=== PATIENT | female | born 1975 | race Caucasian/White ===

== ENCOUNTER → 2017-07-23 | Outpatient (CLI) | payer MEDICAID ==
[~2017-07-23] MED LIST: ACET-2469 PO; ACHD5005 PO; ALBU8.5H2 IH; ALPR2TAB2 PO; AMIT25TA9 PO; AMLO5TAB2 PO; CYCL10TA45 PO; DICY10CA26 PO; DICY20TA10 PO; DICY20TA57 PO; DOXY100C2 PO; ESZO3TAB3 PO; ESZO3TAB30 PO; FAMO20TA5 PO; FLUT1DIS28 IH; GABA-488 PO; HYDR-34 PO; HYDR-3583 PO; HYOS0.1217 PO; MELO-195 PO; NAPR-243 PO; NITR-65 PO; NITR100C PO; NITR100C10 PO; ONDA-42 SL; ONDA4TAB8 PO; ONDA8TAB9 PO; ONDAN4ODT PO; ONDN4T PO; OXYC-12 PO; OXYC-309 PO; PHEN16.297 PO; POTA10TA36 PO; POTA20TA7 PO; PRD20T PO; PRM25T PO; PROM25TA14 PO; PROP10TA8 PO; PROP60CA; RNT150T PO; ROPI1TAB PO; SRTR100T PO; SULF-222 PO; SULF1TAB38 PO; SUMA25TA3; TOPI100T2 PO; TOPI50TA37; TPR25T PO; TRAM50TA2 PO; TRM50T PO; XANAX; [UNRECOGNIZED DRUG - CODE] EXT; [UNRECOGNIZED DRUG - REMARK]
--- NOTE | 2017-07-23 09:00 | Diagnostic Imaging Report ---
DATE: 07/23/2017 8:43 AM INDICATION: Abnormal liver enzymes. COMPARISON: CT from 02/19/2014. TECHNIQUE: Routine liver/gallbladder ultrasound. FINDINGS: The liver is normal in size and shape. The liver echogenicity is within normal limits. There are no focal lesions. No intrahepatic biliary dilatation is present. The common bile duct is not seen. The main portal vein is hepatopetal. The gallbladder is absent. No fluid collections are seen in the gallbladder fossa. The sonographic Brown's sign is negative. The visualized portions of the head of the pancreas are within normal limits. The body and tail of the pancreas are not well visualized due to overlying bowel gas. The visualized portions of the IVC and aorta are normal. The right kidney measures approximately 10.4 cm in length and has a normal appearance. No free fluid is seen. IMPRESSION: 1. No acute hepatic abnormality is seen. The gallbladder is absent. Dictated by: Dictated on workstation # [id number]
== END ==
LOC: RAD 07:48
PROVIDERS: ATTEND Nurse Practitioner Family
DX: R74.8 Abnormal levels of other serum enzymes (principal); Z90.49 Acquired absence of other specified parts of digestive tract
CPT/HCPCS: 76705

== ENCOUNTER 2018-01-12 08:44 | Emergency (ER) | payer MEDICAID ==
[~2018-01-12] VITALS: Ht 160 cm; Wt 86.2 kg
--- OUTSIDE RECORDS SUMMARY | 2018-01-12 08:51 | XMS REPORT ---
Author Author DIONY XIONG Organization [facility] Address [address] [place] [address] Care Team Providers Care Vb Net Developer Name Role Phone DIONY XIONG Unavailable PROBLEMS Type Condition ICD9-CM Code [id number] Code Onset Dates Condition Status SNOMED Code Problem Essential hypertension I10 Active 86795205 Problem Other chronic pain G89.29 Active 47880228 Problem 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 Active 45042244 Problem Other chronic pain G89.29 Active 91531308 Problem Intractable chronic migraine without aura and with status migrainosus G43.711 Active 926854641 Problem Primary insomnia F51.01 Active 6523127 Problem Seizure disorder G40.909 Active 147663204 Problem Moderate persistent asthma with exacerbation J45.41 Active 677202395 Problem Moderate persistent asthma without complication J45.40 Active 548161072 Problem Elevated liver enzymes R74.8 Active 065261136 Problem Hyperlipidemia LDL goal <100 E78.5 Active 98471244 Problem Hypokalemia E87.6 Active 05097041 Problem Tremor, hereditary, 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 Active 557683786 Problem Abnormal glucose R73.09 Active 180453944 Problem Irritable bowel K58.9 Active 52272714 Problem Major depressive disorder, recurrent episode, moderate F33.1 Active 587332907 Problem Chronic migraine without aura with status migrainosus, not intractable G43.701 Active 898381534 ALLERGIES No Information ENCOUNTERS Encounter Location Date Diagnosis [facility] [id number] [address] Dec, [facility] [address] [address] Nov, Other chronic pain G89.29 and Pain in right shoulder M25.511 [facility] [id number] [place] [address] 66998- 7503 October, [facility] [address] [address] October, Right shoulder pain, unspecified chronicity M25.511 [facility] [id number] [place] [address] 25266- 7742 Aug, Elevated liver enzymes R74.8 and Hyperlipidemia LDL goal < 100 E78.5 [facility] [id number] [place] [address] 99283- 8403 Aug, [facility] [id number] [place] [address] 44834- 7394 Jul, [facility] [id number] [place] [address] 24951- 8901 Jul, Intractable chronic migraine without aura and with status migrainosus G43.711 ; Fever, unspecified fever cause R50.9 and Elevated liver enzymes R74.8 [facility] [id number] [place] [address] 41724- 9508 Jun, Difficulty urinating R39.198 and Moderate persistent asthma with exacerbation J45.41 [facility] [id number] [place] [address] 09293- 3643 Jun, [facility] [id number] [place] [address] 35266- 1847 Jun, Moderate persistent asthma with exacerbation J45.41 [facility] [id number] [place] [address] 41746- 3081 May, Elevated liver enzymes R74.8 and Hyperlipidemia LDL goal < 100 E78.5 [facility] [id number] [place] [address] 51991- 4913 May, Elevated lipids E78.5 [facility] [id number] [place] [address] 03093- 4736 Apr, Elevated liver enzymes R74.8 [facility] [id number] [place] [address] 08173- 1434 Apr, Elevated liver enzymes R74.8 [place] [address] [address]206- 5513 Apr, Superior glenoid labrum lesion of right shoulder, subsequent encounter S43.431D [facility] [address] 49291- 7138 Apr, Hypokalemia E87.6 ; Major depressive disorder, recurrent episode, moderate F33.1 ; Other abnormalities of breathing R06.89 and Dyspnea, unspecified R06.00 [facility] [address] [address]14 Mar, Moderate persistent asthma without complication J45.40 [place] [address] 57376- 3028 Mar, Impingement syndrome of right shoulder M75.41 [place] [address] 99419- 9381 Jan, [place] [address] 13675- 0070 Jan, Chronic migraine without aura with status migrainosus, not intractable G43.701 ; Essential hypertension I10 ; Irritable bowel K58.9 ; Primary insomnia F51.01 and Hypokalemia E87.6 [place] [id number] [place] [address] 83568- 6794 Dec, [place] [address] 08117- 7564 Dec, Pain in right shoulder M25.511 [place] [address] 24767- 6648 Dec, [place] [address] 92434- 6521 Dec, Essential hypertension I10 [place] [address] 40443- 4055 30 Nov, 2016 Essential hypertension I10 [facility] [id number] [place] [address] 01457- 9077 14 Nov, 2016 Pain in right shoulder M25.511 [facility] [id number] [place] [address] 30569- 3993 13 Nov, 2016 Pain in right shoulder M25.511 [facility] [id number] [place] [address] 58023- 1373 October, [facility] [address] [place] [address] 19007- 2541 October, Pain in right shoulder M25.511 [facility] [address] [place] [address] 22443- 1688 Sep, Arm pain, right M79.601 [place] [address] [place] [address] 79138- 8164 Sep, [facility] [address] [place] [address] 73124- 3557 Sep, Abnormal glucose R73.09 and Elevated lipids E78.5 [place] [address] [place] [address] 71388- 5783 Sep, Abnormal glucose R73.09 and Elevated lipids E78.5 [place] [address] [place] [address] 51652- 4571 Aug, [facility] [address] [place] [address] 78095- 3535 Aug, [facility] [id number] [place] [address] 96427- 8629 Aug, [facility] [address] [place] [address] 20562- 2296 Aug, 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 ; Hypokalemia E87.6 ; Irritable bowel K58.9 ; Essential hypertension I10 ; Pain in right shoulder M25.511 ; Seizure disorder G40.909 and Screening for lipid disorders Z13.220 [place] [address] [place] [address] 65247- 0071 28 Jul, 2016 Other chronic pain G89.29 and Pain in right shoulder M25.511 [place] [address] [place] [address] 18535- 4705 14 Jul, 2016 Biceps muscle strain, right, subsequent encounter S46.111D [facility] [place] [address] 10077 -0611 08 Jul, 2016 Arm pain, right M79.601 [place] [address] 08021- 3739 30 Jun, 2016 [place] [address] 68987- 9206 13 Jun, 2016 Acute non-recurrent frontal sinusitis J01.10 [place] [address] [place] [address] 04103- 1530 14 May, 2016 Generalized abdominal pain R10.84 ; Urinary tract infection without hematuria, site unspecified N39.0 ; Hypokalemia E87.6 ; Essential hypertension I10 ; Screening for lipid disorders Z13.220 ; Seizure R56.9 and Low back pain M54.5 [place] [address] [place] [address] 50373- 6199 Apr, [facility] [place] [address] [place] [address] 27432 -1408 Feb, [place] [address] [place] [address] 98721- 9439 Jan, [place] [address] 51101- 6975 Dec, 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 ; Hypokalemia E87.6 ; Irritable bowel K58.9 and Nausea R11.0 [facility] [place] [address] 89901 -3026 Dec, Generalized abdominal pain R10.84 [facility] [address] [place] [address] 15015- 8099 Nov, [facility] [address] [place] [address] 85780 -2980 Aug, Acute bronchitis J20.9 [facility] [address] [place] [address] 89588- 1073 Aug, [place] [address] [place] [address] 15540- 5189 08 Aug, 2015 Low back pain M54.5 ; Hypokalemia E87.6 ; Chronic migraine without aura with status migrainosus, not intractable G43.701 ; Tremor, hereditary, 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 ; Irritable bowel K58.9 ; Essential hypertension I10 and Seizure R56.9 [place] [address] [place] [address] 97528- 0553 07 Aug, 2015 [facility] [address] [place] [address] 17124- 1638 Jul, [place] [address] [place] [address] 22818- 2552 03 Jul, 2015 Low back pain M54.5 ; Hypokalemia E87.6 ; Chronic migraine without aura with status migrainosus, not intractable G43.701 ; Tremor, hereditary, 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 ; Irritable bowel K58.9 ; Essential hypertension I10 and Seizure R56.9 [facility] [address] [place] [address] 00392- 8661 Jun, Hypokalemia E87.6 [place] [address] [place] [address] 64082- 3681 15 Jun, 2015 ADD (attention deficit disorder) without hyperactivity F90.0 ; Generalized anxiety disorder F41.1 and Major depressive disorder, recurrent episode, moderate F33.1 [place] [address] [place] [address]- 8671 Jun, Low back pain M54.5 ; Hypokalemia E87.6 ; Chronic migraine without aura with status migrainosus, not intractable G43.701 ; Tremor, hereditary, 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 ; Irritable bowel K58.9 ; Essential hypertension I10 and Seizure R56.9 [place] [address] [place] [address] 16374- 2599 Jun, [place] [address] [place] [address] 05996- 2760 May, [place] [address] 74721- 7997 30 May, 2015 Low back pain M54.5 ; Hypokalemia E87.6 ; Chronic migraine without aura with status migrainosus, not intractable G43.701 ; Tremor, hereditary, 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 ; Irritable bowel K58.9 ; Essential hypertension I10 ; Seizure R56.9 and Tinea capitis B35.0 [place] [address] [place] [address] 44211- 1618 May, Low back pain M54.5 ; Hypokalemia E87.6 ; Chronic migraine without aura with status migrainosus, not intractable G43.701 ; Tremor, hereditary, 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 ; Irritable bowel K58.9 ; Essential hypertension I10 ; Seizure R56.9 ; Otitis media, left H66.92 and Dysuria 788.1 [place] [address] [place] [address] 72100- 1231 May, Tooth pain K08.8 [place] [address] 09209- 9146 May, [place] [address] [place] [address] 02233- 9771 May, Low back pain M54.5 ; Hypokalemia E87.6 ; Chronic migraine without aura with status migrainosus, not intractable G43.701 ; Tremor, hereditary, 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 ; Irritable bowel K58.9 and Essential hypertension I10 [place] [address] 59582- 0463 Apr, Low back pain M54.5 ; Hypokalemia E87.6 ; Chronic migraine without aura with status migrainosus, not intractable G43.701 ; Tremor, hereditary, 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 and Irritable bowel K58.9 [facility] [address] 65499- 4812 05 Apr, 2015 Low back pain M54.5 [place] [address] 44492- 8344 Mar, [place] [address] 49619- 5603 Mar, Irritable bowel syndrome with diarrhea K58.0 [place] [address] 62907- 6392 Mar, [facility] [address] 29699- 3201 Feb, [place] [address] 20575- 0958 08 Feb, 2015 [place] [address] [place] [address] 45587- 2543 Feb, Irritable bowel syndrome 564.1 ; Lumbago 724.2 and Cervical pain (neck) 723.1 [facility] [address] [place] [address] 09647- 2284 Dec, Major depressive disorder, recurrent episode, moderate 296.32 and Generalized anxiety disorder 300.02 [facility] [address] [place] [address] 60079- 3354 Nov, [facility] [address] [place] [address] 82684- 2236 Nov, Major depressive disorder, recurrent episode, moderate 296.32 [facility] [address] [address]- 4152 Nov, Constipation 564.00 ; Nausea & vomiting 787.01 and Abdominal pain 789.00 [facility] [address] 2046 Nov, [facility] [address] [place] [address] 45348- 3550 October, [facility] [address] [place] [address] 59154- 9009 October, [facility] [address] [place] [address] 947334- 4607 October, [facility] [address] [place] [address] 38665- 7996 October, [facility] [address] [place] [address] 59053- 3564 Sep, [facility] [address] [place] [address] 14668- 9130 Sep, Dysuria 788.1 [facility] [address] [place] [address] 42294- 6857 Sep, [facility] [address] [address]- 2144 Sep, [facility] [address] [address]- 8324 Sep, [facility] [address] [place] [address] 54999- 9104 Aug, [facility] [address] [place] [address] 541382- 4366 Aug, [facility] [address] [address] 2546 Aug, [facility] [address] [place] [address] 64461- 4157 Aug, [facility] [place] [facility] [address] [id number] [place] [address]- 3327 Aug, [facility] [place] [facility] [address] [id number] [place] [address]- 9430 Aug, [facility] [place] [facility] [address] [id number] [place] [address]- 4633 Aug, [facility] [place] [facility] [address] [id number] [place] [address]- 5682 Aug, [facility] [place] [facility] [address] [id number] [place] [address]- 1846 Aug, [facility] [place] [facility] [address] [id number] [place] [address]- 1436 Aug, [facility] [place] [facility] [address] [id number] [place] [address]- 7147 Jun, [facility] [place] [facility] [address] [id number] [place] [address]- 6700 Jun, [facility] [place] [facility] [address] [id number] [place] [address]- 5360 Jun, [facility] [place] [facility] [address] [id number] [place] [address]- 1564 Jun, [facility] [place] [facility] [address] [id number] [place] [address]- 5574 May, [facility] [place] [facility] [address] [id number] [address]- 6893 May, [facility] [place] [facility] [address] [id number] [place] [address]- 5685 May, [facility] [place] [facility] [address] [id number] [place] [address]- 3565 May, [facility] [place] [facility] [address] [id number] [place] [address]- 8822 May, [facility] [place] [facility] [address] [id number] [place] [address]- 1191 May, [facility] [place] [facility] [address] [id number] [place] 4004 May, [facility] [place] [facility] [address] [id number] [place] 3471 May, [facility] [place] [facility] [address] [id number] [place] 9413 Mar, [facility] [place] [facility] [address] [id number] [place] [address]- 5483 Mar, [facility] [place] [facility] [address] [id number] [place] [address]- 7614 Mar, [facility] [place] [facility] [address] [id number] [place] [address]- 8509 Mar, [facility] [place] [facility] [address] [id number] [place] [address]- 0343 Mar, [facility] [place] [facility] [address] [id number] [place] [address]- 0811 Mar, [facility] [place] [facility] [address] [id number] [place] [address]- 4399 Mar, [facility] [place] [facility] [address] [facility] [id number] [place] [address]- 7321 Mar, [facility] [place] [facility] [address] [id number] [place] [address]- 6082 Mar, [facility] [place] [facility] [address] [id number] [place] [address]- 8463 Mar, [facility] [place] [facility] [address] [id number] [place] [address]- 6982 Mar, [facility] [place] [facility] [address] [facility] [id number] [place] 8796 Mar, [facility] [place] [facility] [address] [id number] [place] 6118 Feb, [facility] [place] [facility] [address] [id number] [place] [address]- 1520 Feb, [facility] [place] [facility] [address] [id number] [place] [address]- 2157 Feb, [facility] [place] [facility] [address] [id number] [place] [address]- 9268 Feb, [facility] [place] [facility] [address] [id number] [place] [address]- 5308 Feb, [facility] [place] [facility] [address] [id number] [place] [address]- 0677 Feb, [facility] [place] [facility] [address] [id number] [place] [address]- 5756 Jan, [facility] [place] [facility] [address] [id number] [place] [address]- 2589 Jan, [facility] [place] [facility] [address] [id number] [place] [address]- 1272 Jan, [facility] [place] [facility] [address] [id number] [place] [address]- 1293 Jan, [facility] [place] [facility] [address] [id number] [place] [address]- 9926 Jan, [facility] [place] [facility] [address] [id number] [place] [address]- 0321 Jan, [facility] [place] [facility] [address] [id number] [place] [address]- 3187 Jan, [facility] [place] [facility] [address] [id number] [place] [address]- 4150 Jan, [facility] [place] [facility] [address] [id number] [place] [address]- 9218 Dec, [facility] [place] [facility] [address] [id number] [place] [address]- 7260 Dec, [facility] [place] [facility] [address] [id number] [place] [address]- 0430 Dec, [facility] [place] [facility] [address] [id number] [place] [address]- 2451 Dec, [facility] [place] [facility] [address] [id number] [place] [address]- 7138 Dec, [facility] [place] [facility] [address] [id number] [place] [address]- 2489 Dec, [facility] [place] [facility] [address] [id number] [place] [address]- 0419 Dec, [facility] [place] [facility] [address] [id number] [place] [address]- 2315 Dec, [facility] [place] [facility] [address] [id number] [place] [address]- 2054 October, [facility] [place] [facility] [address] [id number] [place] [address]- 4577 October, [facility] [place] [facility] [address] [id number] [place] [address]- 5317 Sep, [facility] [place] [facility] [address] [id number] [place] [address]- 7923 Sep, [facility] [place] [facility] [address] [id number] [place] [address]- 5503 Sep, [facility] [place] [facility] [address] [id number] [place] [address]- 0256 Sep, [facility] [place] [facility] [address] [id number] [place] [address]- 4855 Sep, [facility] [place] [facility] [address] [id number] [place] [address]- 7989 Sep, [facility] [place] [facility] [address] [id number] [place] [address]- 2466 Sep, [facility] [place] [facility] [address] [id number] [place] [address]- 8310 Sep, [facility] [place] [facility] [address] [id number] [place] [address]- 9746 Sep, [facility] [address] [id number] [place] [address]- 3088 Sep, [facility] [place] [facility] [address] [id number] [place] [address] Sep, [facility] [address] [id number] [place] [address] Sep, [facility] [place] [facility] [address] [id number] [place] [address] Aug, [facility] [address] [id number] [place] [address] Aug, [facility] [place] [facility] [address] [id number] [place] [address] Aug, [facility] [address] [id number] [place] [address] Jun, [facility] [address] [id number] [place] [address] Jun, [facility] [place] [facility] [address] [id number] [place] [address] Jun, [facility] [address] [id number] [place] [address] Jun, [facility] [place] [facility] [address] [id number] [place] [address] Jun, [facility] [place] [facility] [address] [id number] [place] [address] Jun, [facility] [place] [facility] [address] [id number] [place] [address] Jun, [facility] [place] [facility] [address] [id number] [place] [address] Jun, [facility] [place] [facility] [address] [id number] [place] [address] Jun, [facility] [address] [id number] [place] [address] Jun, [facility] [place] [facility] [address] [id number] [place] [address] May, [facility] [place] [facility] [address] [id number] [place] [address] May, [facility] [place] [facility] [address] [id number] [place] [address] May, [facility] [place] [facility] [address] [id number] [place] [address] May, [facility] [place] [facility] [address] [id number] [place] [address] Apr, [facility] [place] [facility] [address] [id number] [place] [address] Apr, [facility] [place] [facility] [address] [id number] [place] [address] Apr, [facility] [place] [facility] [address] [id number] [place] [address] Apr, [facility] [place] [facility] [address] [id number] [place] [address] Apr, [facility] [place] [facility] [address] [id number] [place] [address] Apr, [facility] [place] [facility] [address] [id number] [place] [address] Apr, [facility] [place] [facility] [address] [id number] [place] [address] Apr, [facility] [place] [facility] [address] [id number] [place] [address] Mar, [facility] [place] [facility] [address] [id number] [place] [address] Mar, [facility] [place] [facility] [address] [id number] [place] [address] Mar, [facility] [address] [id number] [place] [address] Mar, [facility] [place] [facility] [address] [id number] [place] [address] Mar, [facility] [place] [facility] [address] [id number] [place] [address] Feb, [facility] [place] [facility] [address] [id number] [place] [address] Feb, [facility] [place] [facility] [address] [id number] [place] [address] Feb, [facility] [place] [facility] [address] [id number] [place] [address] Feb, [facility] [address] [address] [id number] [address] Feb, [facility] [place] [facility] [address] [id number] [place] [address] Jan, [facility] [place] [facility] [address] [id number] [place] [address] Jan, [facility] [place] [facility] [address] [id number] [place] [address] Nov, [facility] [place] [facility] [address] [id number] [place] [address] Nov, [facility] [place] [facility] [address] [id number] [place] [address] Nov, [facility] [place] [facility] [address] [id number] [place] [address] Nov, [facility] [place] [facility] [address] [id number] [place] [address] October, [facility] [place] [facility] [address] [id number] [place] [address] Sep, [facility] [place] [facility] [address] [id number] [place] [address] Aug, [facility] [place] [facility] [address] [id number] [place] [address] Aug, [facility] [place] [facility] [address] [id number] [place] [address] Aug, [facility] [place] [facility] [address] [id number] [place] [address] Aug, [facility] [place] [facility] [address] [id number] [place] [address] Jul, [facility] [place] [facility] [address] [id number] [place] [address] Jun, [facility] [place] [facility] [address] [id number] [place] [address] 2546 Jun, [facility] [place] [facility] [address] [id number] [place] [address] May, [facility] [place] [facility] [address] [id number] [place] [address] May, [facility] [place] [facility] [address] [facility] [id number] [place] [id number] Mar, [facility] [place] [facility] [address] [facility] [id number] [place] [address] Mar, [facility] [place] [facility] [address] [id number] [place] [address] Mar, [facility] [place] [facility] [address] [id number] [place] [address] Mar, [facility] [place] [facility] [address] [id number] [place] [address] Mar, [facility] [place] [facility] [address] [id number] [place] [address] Mar, [facility] [place] [facility] [address] [facility] [id number] [place] [address]- [address] Mar, [facility] [place] [facility] [address] [id number] [place] [address]- [address] 23 Mar, 2011 [facility] [place] [facility] [address] [id number] [place] [address] 8631 22 Mar, 2011 [facility] [place] [facility] [address] [id number] [place] [address] 20 Mar, 2012 [facility] [place] [facility] [address] [id number] [place] [address] 20 Mar, 2012 [facility] [place] [facility] [address] [id number] [place] [address] 9665 17 Mar, 2012 [facility] [place] [facility] [address] [id number] [place] [address] 4[address] 17 Mar, 2012 [facility] [place] [facility] [address] [id number] [place] [address]15 15 Mar, 2012 [facility] [place] [facility] [address] [id number] [place] [address] 15 Mar, 2012 [facility] [place] [facility] [address] [id number] [place] [address]37 15 Mar, 2012 [facility] [place] [facility] [address] [id number] [place] [address] 15 Mar, 2012 [facility] [place] [facility] [address] [id number] [place] [address] Mar, [facility] [place] [facility] [address] [id number] [place] [address] 11 Mar, 2012 [facility] [place] [facility] [address] [id number] [place] [address] Mar, [facility] [place] [facility] [address] [id number] [place] [address]- 1492 08 Mar, 2012 [facility] [place] [facility] [address] [id number] [place] [address] Mar, [facility] [place] [facility] [address] [id number] [place] [address] 01 Mar, 2012 [facility] [place] [facility] [address] [id number] [place] [address]256 19 Sep, 2011 [facility] [place] [facility] [address] [id number] [place] [address] 2546 18 Sep, 2011 [facility] [place] [facility] [address] [id number] [place] [address] 2546 17 Sep, 2011 [facility] [place] [facility] [address] [id number] [place] [address] 2546 14 Feb, 2011 [facility] [place] [facility] [address] [id number] [place] [address] 14 Feb, 2011 [facility] [place] [facility] [address] [id number] [place] [address]- [address]686 12 Feb, 2011 [facility] [place] [facility] [address] [id number] [place] [address]- 2013 10 Feb, 2011 [facility] [place] [facility] [address] [id number] [place] [address]- [address] 31 Jan, 2012 [facility] [place] [facility] [address] [id number] [place] [address]- [address]16 30 Jan, 2012 [facility] [place] [facility] [address] [id number] [place] [address]- [address]13 22 Jan, 2012 [facility] [place] [facility] [address] [id number] [place] [address]- 9700 20 Jan, 2012 [facility] [place] [facility] [address] [id number] [place] [address]- 2541 17 Jan, 2012 [facility] [place] [facility] [address] [id number] [place] [address]- 8134 17 Jan, 2012 [facility] [place] [facility] [address] [id number] [place] [address]- 2546 17 Jan, 2012 [facility] [place] [facility] [address] [id number] [place] [address]- 4456 16 Jan, 2012 [facility] [place] [facility] [address] [id number] [place] [address]- 1137 Jan, [facility] [place] [facility] [address] [id number] [place] [address] 9[address] Jan, [facility] [place] [facility] [address] [id number] [place] [address] Dec, [facility] [place] [facility] [address] [id number] [place] [address]- 3674 24 Dec, 2011 [facility] [place] [facility] [address] [id number] [place] [address] 7150 Dec, [facility] [place] [facility] [address] [id number] [place] [address]- 2789 Dec, [facility] [place] [facility] [address] [id number] [place] [address]- 0473 18 Dec, 2011 [facility] [place] [facility] [address] [id number] [place] [address]- 6528 17 Dec, 2011 [facility] [place] [facility] [address] [id number] [place] [address]- 4760 16 Dec, 2011 [facility] [place] [facility] [address] [id number] [place] [address]- 1990 14 Dec, 2011 [facility] [place] [facility] [address] [id number] [place] [address]- 9458 Dec, [facility] [place] [facility] [address] [id number] [place] [address]- 0349 Dec, [facility] [place] [facility] [address] [id number] [place] [address]- 56[address] Dec, [facility] [place] [facility] [address] [id number] [place] [address]- 8212 Nov, [facility] [place] [facility] [address] [id number] [place] [address]- 0233 Nov, [facility] [place] [facility] [address] [id number] [place] [address] Nov, [facility] [address] [id number] [address] Nov, [facility] [id number] [address] Nov, [facility] [id number] [address] 4[address] Nov, [facility] [id number] [address]- [address] Nov, [facility] [id number] [address]- 6[address] Nov, [facility] [id number] [place] [address] Nov, [facility] [id number] [address] Nov, [facility] [id number] [address] October, IMMUNIZATIONS No Known Immunizations SOCIAL HISTORY Never Assessed REASON FOR VISIT Lab (walk-in) PLAN OF CARE VITAL SIGNS MEDICATIONS Unknown Medications RESULTS No Results PROCEDURES Procedure Date Ordered Result Body Site LAB NOT BILLED BY [facility] August 12, 2017 INSTRUCTIONS MEDICATIONS ADMINISTERED No Known Medications MEDICAL (GENERAL) HISTORY Type Description Date Medical History asthma Medical History irritable bowel syndrome Medical History orthopedic disorder-scoliosis Medical History epilepsy Medical History uterine cancer-2005 Medical History NARC ALERT-TESTED NEG FOR TRAMADOL POS BENZO AND MORPHINE Medical History Migraine, unspecified without mention of intractable migraine without mention of status migrainosus Medical History Cervical pain (neck) Medical History Hypertension Surgical History tonsillectom Surgical History bladder SLING and then removal 2011 Surgical History tubal ligation 2003 Surgical History hysterectomy-total 2005 Surgical History lower GI Gianni Valdez -not sure results Surgical History EGD Hospitalization History Hospitalization for surgery Hospitalization History [facility]- Went through the ER and was hosp for 3 days- GI related 10/2014 Hospitalization History Gianni--multiple seizures 03/2015 Hospitalization History infection in colon, seizures 05/2015 Hospitalization History Hypokalemia and high blood pressure 06/15/2015 Hospitalization History ER for vomiting- thought she had hypokalemia 03/2017
--- OUTSIDE RECORDS SUMMARY | 2018-01-12 08:52 | XMS REPORT ---
Author Author DIONY XIONG Organization [facility] Address [address] [place] [address] Care Team Providers Care Information Technology Analyst Name Role Phone DIONY XIONG Unavailable PROBLEMS Type Condition ICD9-CM Code UYM85-DJ Code Onset Dates Condition Status SNOMED Code Problem Essential hypertension I10 Active 31380443 Problem Other chronic pain G89.29 Active 15719526 Problem 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 Active 10175213 Problem Other chronic pain G89.29 Active 95824462 Problem Intractable chronic migraine without aura and with status migrainosus G43.711 Active 603325699 Problem Primary insomnia F51.01 Active 6911893 Problem Seizure disorder G40.909 Active 274178709 Problem Moderate persistent asthma with exacerbation J45.41 Active 731467517 Problem Moderate persistent asthma without complication J45.40 Active 830855924 Problem Elevated liver enzymes R74.8 Active 810056230 Problem Hyperlipidemia LDL goal <100 E78.5 Active 36614873 Problem Hypokalemia E87.6 Active 15721953 Problem Tremor, hereditary, 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 Active 471847603 Problem Abnormal glucose R73.09 Active 518807194 Problem Irritable bowel K58.9 Active 78417225 Problem Major depressive disorder, recurrent episode, moderate F33.1 Active 130961460 Problem Chronic migraine without aura with status migrainosus, not intractable G43.701 Active 889107349 ALLERGIES No Information ENCOUNTERS Encounter Location Date Diagnosis [facility] [id number] [address] Dec, [facility] [address], [place] [address] Nov, Other chronic pain G89.29 and Pain in right shoulder M25.511 [facility] [id number] [place] [address] 43984- 9991 October, [facility] [address] [address] October, Right shoulder pain, unspecified chronicity M25.511 [facility] [id number] [place] [address] 70086- 2105 Aug, Elevated liver enzymes R74.8 and Hyperlipidemia LDL goal < 100 E78.5 [facility] [id number] [place] [address] 06168- 3480 Aug, [facility] [id number] [place] [address] 94705- 5749 Jul, [facility] [id number] [place] [address] 60865- 0982 Jul, Intractable chronic migraine without aura and with status migrainosus G43.711 ; Fever, unspecified fever cause R50.9 and Elevated liver enzymes R74.8 [facility] [id number] [place] [address] 98568- 9091 Jun, Difficulty urinating R39.198 and Moderate persistent asthma with exacerbation J45.41 [facility] [id number] [place] [address] 05102- 3054 Jun, [facility] [id number] [place] [address] 17785- 5323 Jun, Moderate persistent asthma with exacerbation J45.41 [facility] [id number] [place] [address] 17748- 9567 May, Elevated liver enzymes R74.8 and Hyperlipidemia LDL goal < 100 E78.5 [facility] [id number] [place] [address] 50710- 3514 May, Elevated lipids E78.5 [facility] [id number] [place] [address] 28320- 6496 Apr, Elevated liver enzymes R74.8 [facility] [id number] [place] [address] 12153- 8539 Apr, Elevated liver enzymes R74.8 [place] [address] 23496- 3586 Apr, Superior glenoid labrum lesion of right shoulder, subsequent encounter S43.431D [facility] [address] [address]11- 6121 Apr, Hypokalemia E87.6 ; Major depressive disorder, recurrent episode, moderate F33.1 ; Other abnormalities of breathing R06.89 and Dyspnea, unspecified R06.00 [facility] [address] [address]10 [address]37 Mar, Moderate persistent asthma without complication J45.40 [place] [address] 28584- 7637 Mar, Impingement syndrome of right shoulder M75.41 [place] [address] 14241- 8765 Jan, [place] [address] 94113- 0416 Jan, Chronic migraine without aura with status migrainosus, not intractable G43.701 ; Essential hypertension I10 ; Irritable bowel K58.9 ; Primary insomnia F51.01 and Hypokalemia E87.6 [place] [id number] [place] [address] 47696- 7729 Dec, [place] [id number] [place] [address] 09836- 6287 Dec, Pain in right shoulder M25.511 [place] [address] 33224- 9644 Dec, Essential hypertension I10 [place] [id number] [place] [address] 23057- 3404 Dec, [place] [address] 36364- 7432 30 Nov, 2016 Essential hypertension I10 [facility] [id number] [place] [address] 49944- 1730 14 Nov, 2016 Pain in right shoulder M25.511 [facility] [id number] [place] [address] 59000- 1168 13 Nov, 2016 Pain in right shoulder M25.511 [facility] [id number] [place] [address] 52657- 8900 October, [facility] [id number] [place] [address] 24226- 3562 October, Pain in right shoulder M25.511 [facility] [id number] [place] [address] 51740- 8258 Sep, Arm pain, right M79.601 [place] [id number] [place] [address] 52722- 9273 Sep, [facility] [id number] [place] [address] 45670- 3389 Sep, Abnormal glucose R73.09 and Elevated lipids E78.5 [place] [id number] [place] [address] 84619- 9760 Sep, Abnormal glucose R73.09 and Elevated lipids E78.5 [facility] [id number] [place] [address] 91855- 3115 Aug, [facility] [id number] [place] [address] 30563- 7792 Aug, [facility] [address] [place] [address] 78509- 2564 Aug, [facility] [address] [place] [address] 55983- 7637 Aug, 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 ; Hypokalemia E87.6 ; Irritable bowel K58.9 ; Essential hypertension I10 ; Pain in right shoulder M25.511 ; Screening for lipid disorders Z13.220 and Seizure disorder G40.909 [place] [id number] [place] [address] 66262- 0283 28 Jul, 2016 Other chronic pain G89.29 and Pain in right shoulder M25.511 [place] [id number] [place] [address] 35299- 4910 14 Jul, 2016 Biceps muscle strain, right, subsequent encounter S46.111D [facility] [place] [address] 53893 -4302 08 Jul, 2016 Arm pain, right M79.601 [place] [address] 55080- 3232 30 Jun, 2016 [place] [address] 92091- 8147 13 Jun, 2016 Acute non-recurrent frontal sinusitis J01.10 [place] [id number] [place] [address] 51214- 0692 14 May, 2016 Generalized abdominal pain R10.84 ; Urinary tract infection without hematuria, site unspecified N39.0 ; Hypokalemia E87.6 ; Essential hypertension I10 ; Screening for lipid disorders Z13.220 ; Seizure R56.9 and Low back pain M54.5 [place] [id number] [place] [address] 92816- 1426 Apr, [facility] [place] [id number] [place] [address] 23264 -6883 Feb, [place] [id number] [place] [address] 35763- 4394 Jan, [place] [address] 16147- 4276 Dec, 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 ; Hypokalemia E87.6 ; Irritable bowel K58.9 and Nausea R11.0 [facility] [address] 46[address] -6478 Dec, Generalized abdominal pain R10.84 [facility] [id number] [place] [address] 37527- 4239 Nov, [facility] [id number] [place] [address] 23404 -3550 Aug, Acute bronchitis J20.9 [facility] [id number] [place] [address] 97045- 0707 Aug, [place] [id number] [place] [address] 11412- 9383 08 Aug, 2015 Low back pain M54.5 ; Hypokalemia E87.6 ; Chronic migraine without aura with status migrainosus, not intractable G43.701 ; Tremor, hereditary, 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 ; Irritable bowel K58.9 ; Essential hypertension I10 and Seizure R56.9 [place] [id number] [place] [address] 61389- 7895 07 Aug, 2015 [facility] [id number] [place] [address] 42409- 7291 Jul, [place] [id number] [place] [address] 11571- 2581 03 Jul, 2015 Low back pain M54.5 ; Hypokalemia E87.6 ; Chronic migraine without aura with status migrainosus, not intractable G43.701 ; Tremor, hereditary, 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 ; Irritable bowel K58.9 ; Essential hypertension I10 and Seizure R56.9 [facility] [id number] [place] [address] 66080- 3597 Jun, Hypokalemia E87.6 [place] [id number] [place] [address] 12231- 0516 15 Jun, 2015 ADD (attention deficit disorder) without hyperactivity F90.0 ; Generalized anxiety disorder F41.1 and Major depressive disorder, recurrent episode, moderate F33.1 [place] [address] [place] [address]- 3322 Jun, Low back pain M54.5 ; Hypokalemia E87.6 ; Chronic migraine without aura with status migrainosus, not intractable G43.701 ; Tremor, hereditary, 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 ; Irritable bowel K58.9 ; Essential hypertension I10 and Seizure R56.9 [place] [id number] [place] [address] 03556- 5391 Jun, [place] [id number] [place] [address] 71101- 8751 May, [place] [address] 63963- 1949 30 May, 2015 Low back pain M54.5 ; Hypokalemia E87.6 ; Chronic migraine without aura with status migrainosus, not intractable G43.701 ; Tremor, hereditary, 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 ; Irritable bowel K58.9 ; Essential hypertension I10 ; Seizure R56.9 and Tinea capitis B35.0 [place] [id number] [place] [address] 28893- 9239 May, Low back pain M54.5 ; Hypokalemia E87.6 ; Chronic migraine without aura with status migrainosus, not intractable G43.701 ; Tremor, hereditary, 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 ; Irritable bowel K58.9 ; Essential hypertension I10 ; Seizure R56.9 ; Dysuria 788.1 and Otitis media, left H66.92 [place] [id number] [place] [address] 69698- 9062 14 May, 2015 Tooth pain K08.8 [place] [address] 91336- 7655 May, [place] [id number] [place] [address] 76230- 4490 May, Low back pain M54.5 ; Hypokalemia E87.6 ; Chronic migraine without aura with status migrainosus, not intractable G43.701 ; Tremor, hereditary, 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 ; Irritable bowel K58.9 and Essential hypertension I10 [place] [address] 70604- 0541 Apr, Low back pain M54.5 ; Hypokalemia E87.6 ; Chronic migraine without aura with status migrainosus, not intractable G43.701 ; Tremor, hereditary, 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 and Irritable bowel K58.9 [facility] [address] 85769- 5600 05 Apr, 2015 Low back pain M54.5 [place] [address] 07801- 2104 Mar, [place] [address] 00320- 8839 Mar, Irritable bowel syndrome with diarrhea K58.0 [place] [address] 35122- 7934 Mar, [facility] [address] 00713- 7631 Feb, [place] [address] 51473- 6394 08 Feb, 2015 [place] [id number] [place] [address] 11148- 7682 Feb, Irritable bowel syndrome 564.1 ; Lumbago 724.2 and Cervical pain (neck) 723.1 [facility] [id number] [place] [address] 90813- 6051 Dec, Major depressive disorder, recurrent episode, moderate 296.32 and Generalized anxiety disorder 300.02 [facility] [id number] [place] [address] 94853- 0299 Nov, [facility] [id number] [place] [address] 63012- 8181 Nov, Major depressive disorder, recurrent episode, moderate 296.32 [facility] [address] [address]- 4021 Nov, Constipation 564.00 ; Nausea & vomiting 787.01 and Abdominal pain 789.00 [facility] [id number], [place] [address]- 2546 Nov, [facility] [id number] [place] [address] 13782- 7300 October, [facility] [id number] [place] [address] 20560- 8135 October, [facility] [id number] [place] [address] 394781- 9252 October, [facility] [id number] [place] [address] 347099- 5206 October, [facility] [id number] [place] [address] 99189- 7616 Sep, Dysuria 788.1 [facility] [id number] [place] [address] 39121- 5526 Sep, [facility] [id number] [place] [address] 70623- 3814 Sep, [facility] [address] [address]- 1122 Sep, [facility] [id number] [address]- 9797 Sep, [facility] [id number] [place] [address] 52645 2547 Aug, [facility] [id number] [place] [address] 72968- 2876 Aug, [facility] [address] [address] 2546 Aug, [facility] [id number] [place] [address] 05351- 5325 Aug, [facility] [place] [facility] [address] [id number] [place] [address]- 7314 Aug, [facility] [place] [facility] [address] [id number] [place] [address]- 4127 Aug, [facility] [place] [facility] [address] [id number] [place] [address]- 6266 Aug, [facility] [place] [facility] [address] [id number] [place] [address]- 2955 Aug, [facility] [place] [facility] [address] [id number] [place] [address]- 5333 Aug, [facility] [place] [facility] [address] [id number] [place] [address]- 9158 Aug, [facility] [place] [facility] [address] [id number] [place] [address]- 6402 Jun, [facility] [place] [facility] [address] [id number] [place] [address]- 8272 Jun, [facility] [place] [facility] [address] [id number] [place] [address]- 7715 Jun, [facility] [place] [facility] [address] [id number] [place] [address]- 5212 Jun, [facility] [place] [facility] [address] [id number] [place] [address]- 7181 May, [facility] [place] [facility] [address] [id number] [address]- 9231 May, [facility] [place] [facility] [address] [id number] [place] [address]- 9083 May, [facility] [place] [facility] [address] [id number] [place] [address]- 3371 May, [facility] [place] [facility] [address] [id number] [place] [address]- 9947 May, [facility] [place] [facility] [address] [id number] [place] [address]- 2126 May, [facility] [place] [facility] [address] [id number] [place] 4478 May, [facility] [place] [facility] [address] [id number] [place] 4015 May, [facility] [place] [facility] [address] [id number] [place] 3935 Mar, [facility] [place] [facility] [address] [id number] [place] [address]- 5056 Mar, [facility] [place] [facility] [address] [id number] [place] [address]- 4514 Mar, [facility] [place] [facility] [address] [id number] [place] [address]- 9708 Mar, [facility] [place] [facility] [address] [id number] [place] [address]- 4325 Mar, [facility] [place] [facility] [address] [id number] [place] [address]- 6344 Mar, [facility] [place] [facility] [address] [id number] [place] [address]- 6343 Mar, [facility] [place] [facility] [address] [facility] [id number] [place] [address]- 7372 Mar, [facility] [place] [facility] [address] [id number] [place] [address]- 8359 Mar, [facility] [place] [facility] [address] [id number] [place] [address]- 5788 Mar, [facility] [place] [facility] [address] [id number] [place] [address]- 0108 Mar, [facility] [place] [facility] [address] [facility] [id number] [place]- 0354 Mar, [facility] [place] [facility] [address] [id number] [place] 7827 Feb, [facility] [place] [facility] [address] [id number] [place] [address]- 3605 Feb, [facility] [place] [facility] [address] [id number] [place] [address]- 8254 Feb, [facility] [place] [facility] [address] [id number] [place] [address]- 3539 Feb, [facility] [place] [facility] [address] [id number] [place] [address]- 9386 Feb, [facility] [place] [facility] [address] [id number] [place] [address]- 0611 Feb, [facility] [place] [facility] [address] [id number] [place] [address]- 4800 Jan, [facility] [place] [facility] [address] [id number] [place] [address]- 9392 Jan, [facility] [place] [facility] [address] [id number] [place] [address]- 8440 Jan, [facility] [place] [facility] [address] [id number] [place] [address]- 6501 Jan, [facility] [place] [facility] [address] [id number] [place] [address]- 2149 Jan, [facility] [place] [facility] [address] [id number] [place] [address]- 8459 Jan, [facility] [place] [facility] [address] [id number] [place] [address]- 6157 Jan, [facility] [place] [facility] [address] [id number] [place] [address]- 6604 Jan, [facility] [place] [facility] [address] [id number] [place] [address]- 0816 Dec, [facility] [place] [facility] [address] [id number] [place] [address]- 5718 Dec, [facility] [place] [facility] [address] [id number] [place] [address]- 9731 Dec, [facility] [place] [facility] [address] [id number] [place] [address]- 1897 Dec, [facility] [place] [facility] [address] [id number] [place] [address]- 8171 Dec, [facility] [place] [facility] [address] [id number] [place] [address]- 8871 Dec, [facility] [place] [facility] [address] [id number] [place] [address]- 9745 Dec, [facility] [place] [facility] [address] [id number] [place] [address]- 0574 Dec, [facility] [place] [facility] [address] [id number] [place] [address]- 5059 October, [facility] [place] [facility] [address] [id number] [place] [address]- 2070 October, [facility] [place] [facility] [address] [id number] [place] [address]- 6861 Sep, [facility] [place] [facility] [address] [id number] [place] [address]- 6206 Sep, [facility] [place] [facility] [address] [id number] [place] [address]- 6913 Sep, [facility] [place] [facility] [address] [id number] [place] [address]- 9107 Sep, [facility] [place] [facility] [address] [id number] [place] [address]- 9881 Sep, [facility] [place] [facility] [address] [id number] [place] [address]- 4845 Sep, [facility] [place] [facility] [address] [id number] [place] [address]- 3441 Sep, [facility] [place] [facility] [address] [id number] [place] [address]- 2897 Sep, [facility] [place] [facility] [address] [id number] [place] [address]- 9940 Sep, [facility] [address] [id number] [place] [address]- 2672 Sep, [facility] [place] [facility] [address] [id number] [place] [address]- 3859 Sep, [facility] [address] [id number] [place] [address]- 3153 Sep, [facility] [place] [facility] [address] [id number] [place] [address]- 2629 Aug, [facility] [address] [id number] [place] [address]- 9026 Aug, [facility] [place] [facility] [address] [id number] [place] [address] Aug, [facility] [address] [id number] [place] [address] Jun, [facility] [address] [id number] [place] [address] Jun, [facility] [place] [facility] [address] [id number] [place] [address] Jun, [facility] [address] [id number] [place] [address] Jun, [facility] [place] [facility] [address] [id number] [place] [address] Jun, [facility] [place] [facility] [address] [id number] [place] [address] Jun, [facility] [place] [facility] [address] [id number] [place] [address] Jun, [facility] [place] [facility] [address] [id number] [place] [address] Jun, [facility] [place] [facility] [address] [id number] [place] [address] Jun, [facility] [address] [id number] [place] [address] Jun, [facility] [place] [facility] [address] [id number] [place] [address] May, [facility] [place] [facility] [address] [id number] [place] [address] May, [facility] [place] [facility] [address] [id number] [place] [address] May, [facility] [place] [facility] [address] [id number] [place] [address] May, [facility] [place] [facility] [address] [id number] [place] [address] Apr, [facility] [place] [facility] [address] [id number] [place] [address] Apr, [facility] [place] [facility] [address] [id number][place] [address] Apr, [facility] [place] [facility] [address] [id number] [place] [address] Apr, [facility] [place] [facility] [address] [id number][place] [address] Apr, [facility] [place] [facility] [address] [id number], [place] [address] Apr, [facility] [place] [facility] [address] [id number][place] [address] Apr, [facility] [place] [facility] [address] [id number][place] [address] Apr, [facility] [place] [facility] [address] [id number][place] [address] Mar, [facility] [place] [facility] [address] [id number][place] [address] Mar, [facility] [place] [facility] [address] [id number][place] [address] Mar, [facility] [address] [id number] [place] [address] Mar, [facility] [place] [facility] [address] [id number] [place] [address] Mar, [facility] [place] [facility] [address] [id number] [place] [address] Feb, [facility] [place] [facility] [address] [id number] [place] [address] Feb, [facility] [place] [facility] [address] [id number] [place] [address] Feb, [facility] [place] [facility] [address] [id number] [place] [address] Feb, [facility] [address] [id number][place] [address] Feb, [facility] [place] [facility] [address] [id number] [place] [address] Jan, [facility] [place] [facility] [address] [id number] [place] [address] Jan, [facility] [place] [facility] [address] [id number] [place] [address] Nov, [facility] [place] [facility] [address] [id number][place] [address] Nov, [facility] [place] [facility] [address] [id number], [place] [address] Nov, [facility] [place] [facility] [address] [id number] [place] [address] Nov, [facility] [place] [facility] [address] [id number] [place] [address] October, [facility] [place] [facility] [address] [id number] [place] [address] Sep, [facility] [place] [facility] [address] [id number] [place] [address] Aug, [facility] [place] [facility] [address] [id number] [place] [address] Aug, [facility] [place] [facility] [address] [id number] [place] [address] Aug, [facility] [place] [facility] [address] [id number] [place] [address] Aug, [facility] [place] [facility] [address] [id number] [place] [address] Jul, [facility] [place] [facility] [address] [id number] [place] [address] Jun, [facility] [place] [facility] [address] [id number] [place] [address] Jun, [facility] [place] [facility] [address] [id number] [place] [address] May, [facility] [place] [facility] [address] [id number] [place] [address] May, [facility] [place] [facility] [address] [facility] [id number] [place] [id number] Mar, [facility] [place] [facility] [address] [facility] [id number] [place] [address] Mar, [facility] [place] [facility] [address] [id number] [place] [address] Mar, [facility] [place] [facility] [address] [id number] [place] [address] Mar, [facility] [place] [facility] [address] [id number] [place] [address] Mar, [facility] [place] [facility] [address] [id number] [place] [address] Mar, [facility] [place] [facility] [address] [facility] [id number] [place] [address] Mar, [facility] [place] [facility] [address] [id number] [place] [address] 23 Mar, 2011 [facility] [place] [facility] [address] [id number] [place] [address] 22 Mar, 2011 [facility] [place] [facility] [address] [id number] [place] [address] 20 Mar, 2012 [facility] [place] [facility] [address] [id number] [place] [address] 20 Mar, 2012 [facility] [place] [facility] [address] [id number] [place] [address] 17 Mar, 2012 [facility] [place] [facility] [address] [id number] [place] [address] 17 Mar, 2012 [facility] [place] [facility] [address] [id number] [place] [address] 15 Mar, 2012 [facility] [place] [facility] [address] [id number] [address] 15 Mar, 2012 [facility] [place] [facility] [address] [id number] [place] [address] 15 Mar, 2012 [facility] [place] [facility] [address] [id number][place] [address] 15 Mar, 2012 [facility] [place] [facility] [address] [id number][place] [address] Mar, [facility] [place] [facility] [address] [id number][place] [address] 11 Mar, 2012 [facility] [place] [facility] [address] [id number][place] [address] Mar, [facility] [place] [facility] [address] [id number][place] [address] 08 Mar, 2012 [facility] [place] [facility] [address] [id number][place] [address] Mar, [facility] [place] [facility] [address] [id number] [place] [address] 01 Mar, 2012 [facility] [place] [facility] [address] [id number] [place] [address] 19 Sep, 2011 [facility] [place] [facility] [address] [id number] [place] [address] 2546 18 Sep, 2011 [facility] [place] [facility] [address] [id number] [place] [address] 2546 17 Sep, 2011 [facility] [place] [facility] [address] [id number] [place] [address] 14 Feb, 2011 [facility] [place] [facility] [address] [id number] [place] [address] 14 Feb, 2011 [facility] [place] [facility] [address] [id number] [place] [address] 12 Feb, 2011 [facility] [place] [facility] [address] [id number] [place] [address] 3944 10 Feb, 2011 [facility] [place] [facility] [address] [id number] [place] [address] 31 Jan, 2012 [facility] [place] [facility] [address] [id number] [place] [address] 30 Jan, 2012 [facility] [place] [facility] [address] [id number] [place] [address] 12[address] 22 Jan, 2012 [facility] [place] [facility] [address] [id number] [place] [address]99 20 Jan, 2012 [facility] [place] [facility] [address] [id number] [place] [address]47 17 Jan, 2012 [facility] [place] [facility] [address] [id number] [place] [address] 2499 17 Jan, 2012 [facility] [place] [facility] [address] [id number] [place] [address]- [address]46 17 Jan, 2012 [facility] [place] [facility] [address] [id number] [place] [address]- [address]377 16 Jan, 2012 [facility] [place] [facility] [address] [id number] [place] [address] Jan, [facility] [place] [facility] [address] [id number] [place] [address] Jan, [facility] [place] [facility] [address] [id number] [place] [address] 110[address] Dec, [facility] [place] [facility] [address] [id number] [place] [address] 24 Dec, 2011 [facility] [place] [facility] [address] [id number] [place] [address] Dec, [facility] [place] [facility] [address] [id number] [place] [address] Dec, [facility] [place] [facility] [address] [id number] [place] [address] 18 Dec, 2011 [facility] [place] [facility] [address] [id number] [place] [address] 83[address] 17 Dec, 2011 [facility] [place] [facility] [address] [id number] [place] [address] 2944 16 Dec, 2011 [facility] [place] [facility] [address] [id number] [place] [address]- 4357 14 Dec, 2011 [facility] [place] [facility] [address] [id number] [place] [address]- [address] Dec, [facility] [place] [facility] [address] [id number] [place] [address]- 1213 Dec, [facility] [place] [facility] [address] [id number] [place] [address]- [address] Dec, [facility] [place] [facility] [address] [id number] [place] [address]- [address] Nov, [facility] [place] [facility] [address] [id number] [place] [address]- [address] Nov, [facility] [place] [facility] [address] [id number][place] [address] Nov, [facility] [address] [id number] [address] Nov, [facility] [id number], [place] [address] Nov, [facility] [id number], [place] [address] Nov, [facility] [id number], [place] [address]- [address] Nov, [facility] [id number], [place] [address] Nov, [facility] [id number], [place] [address] Nov, [facility] [id number], [place] [address] Nov, [facility] [address] [id number], [place] [address] October, IMMUNIZATIONS No Known Immunizations SOCIAL HISTORY Never Assessed REASON FOR VISIT Requests return call PLAN OF CARE VITAL SIGNS MEDICATIONS Unknown Medications RESULTS No Results PROCEDURES No Known procedures INSTRUCTIONS MEDICATIONS ADMINISTERED No Known Medications MEDICAL [...]
--- OUTSIDE RECORDS SUMMARY | 2018-01-12 08:53 | XMS REPORT ---
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 Active 02139586 Problem Essential hypertension I10 Active 79412195 Problem Intractable chronic migraine without aura and with status migrainosus G43.711 Active 794913410 Problem Moderate persistent asthma with exacerbation J45.41 Active 650950934 Problem Seizure disorder G40.909 Active 410946219 Problem Other chronic pain G89.29 Active 73126652 Problem Moderate persistent asthma without complication J45.40 Active 346877484 Problem Primary insomnia F51.01 Active 6689069 Problem Abnormal glucose R73.09 Active 969694450 Problem Major depressive disorder, recurrent episode, moderate F33.1 Active 620313199 Problem Tremor, hereditary, 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 Active 013544946 Problem Elevated liver enzymes R74.8 Active 848877014 Problem Irritable bowel K58.9 Active 32775589 Problem Hyperlipidemia LDL goal <100 E78.5 Active 19801316 Problem Chronic migraine without aura with status migrainosus, not intractable G43.701 Active 230822287 ALLERGIES No Information ENCOUNTERS Encounter Location Date Diagnosis [facility] [address] [facility] [id number] [address] October, [facility] [address] [id number] [address] October, Right shoulder pain, unspecified chronicity M25.511 [facility] [address] [facility] [id number] [address] Aug, Elevated liver enzymes R74.8 and Hyperlipidemia LDL goal < 100 E78.5 [facility] [id number] [place] [address] 02195- 3952 Aug, [facility] [id number] [place] [address] 37257- 9408 Jul, [facility] [id number] [place] [address] 97815- 3675 Jul, Intractable chronic migraine without aura and with status migrainosus G43.711 ; Fever, unspecified fever cause R50.9 and Elevated liver enzymes R74.8 [place] [id number] [place] [address] 45091- 1474 Jun, Difficulty urinating R39.198 and Moderate persistent asthma with exacerbation J45.41 [place] [id number] [place] [address] 51800- 6915 Jun, [facility] [id number] [place] [address] 10723- 3687 Jun, Moderate persistent asthma with exacerbation J45.41 [facility] [id number] [place] [address] 85175- 8985 May, Elevated liver enzymes R74.8 and Hyperlipidemia LDL goal < 100 E78.5 [place] [id number] [place] [address] 20422- 6937 May, Elevated lipids E78.5 [facility] [id number] [place] [address] 83637- 6948 Apr, Elevated liver enzymes R74.8 [facility] [id number] [place] [address] 37224- 7538 Apr, Elevated liver enzymes R74.8 [facility] [id number] [place] [address] 16038- 5559 Apr, Superior glenoid labrum lesion of right shoulder, subsequent encounter S43.431D [place] [id number] [place] [address] 80012- 0553 Apr, Hypokalemia E87.6 ; Major depressive disorder, recurrent episode, moderate F33.1 ; Other abnormalities of breathing R06.89 and Dyspnea, unspecified R06.00 [facility] [id number] [place] [address] 45098 -1339 Mar, Moderate persistent asthma without complication J45.40 [facility] [address] 72770- 3402 Mar, Impingement syndrome of right shoulder M75.41 [facility] [id number] [place] [address] 10227- 2644 Jan, [place] [id number] [place] [address] 36278- 7176 Jan, Chronic migraine without aura with status migrainosus, not intractable G43.701 ; Essential hypertension I10 ; Irritable bowel K58.9 ; Primary insomnia F51.01 and Hypokalemia E87.6 [facility] [id number] [place] [address] 32519- 8804 Dec, [facility] [id number] [place] [address] 96415- 0324 Dec, Pain in right shoulder M25.511 [facility] [id number] [place] [address] 91734- 3743 Dec, Essential hypertension I10 [facility] [id number] [place] [address] 60234- 9286 Dec, [facility] [id number] [place] [address] 54897- 5773 Nov, Essential hypertension I10 [place] [id number] [place] [address] 94676- 3533 Nov, Pain in right shoulder M25.511 [facility] [id number] [place] [address] 70119- 9483 Nov, Pain in right shoulder M25.511 [place] [id number] [place] [address] 31906- 5891 October, [place] [id number] [place] [address] 08932- 1502 October, Pain in right shoulder M25.511 [place] [id number] [place] [address] 10239- 6085 Sep, Arm pain, right M79.601 [place] [id number] [place] [address] 58842- 6669 Sep, [place] [address] 10409- 2827 Sep, Abnormal glucose R73.09 and Elevated lipids E78.5 [place] [address] 59680- 0767 Sep, Abnormal glucose R73.09 and Elevated lipids E78.5 [place] [id number] [place] [address] 09754- 6390 Aug, [place] [address] 78912- 5866 Aug, [place] [id number] [place] [address] 79355- 6242 Aug, [place] [id number] [place] [address] 66837- 1964 Aug, 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 ; Hypokalemia E87.6 ; Irritable bowel K58.9 ; Essential hypertension I10 ; Pain in right shoulder M25.511 ; Seizure disorder G40.909 and Screening for lipid disorders Z13.220 [place] [id number] [place] [address] 83940- 0605 28 Jul, 2016 Other chronic pain G89.29 and Pain in right shoulder M25.511 [place] [id number] [place] [address] 35719- 4939 14 Jul, 2016 Biceps muscle strain, right, subsequent encounter S46.111D [facility] [place] [id number] [place] [address] 58144 -0008 08 Jul, 2016 Arm pain, right M79.601 [place] [id number] [place] [address] 78698- 2846 Jun, [place] [address] 36869- 2650 Jun, Acute non-recurrent frontal sinusitis J01.10 [place] [id number] [place] [address] 39621- 3977 May, Generalized abdominal pain R10.84 ; Urinary tract infection without hematuria, site unspecified N39.0 ; Hypokalemia E87.6 ; Essential hypertension I10 ; Screening for lipid disorders Z13.220 ; Seizure R56.9 and Low back pain M54.5 [place] [id number] [place] [address] 06394- 7744 Apr, [facility] [place] [id number] [place] [address] 71326 -0511 Feb, [place] [id number] [place] [address] 00943- 5548 Jan, [place] [id number] [place] [address] 20186- 5121 Dec, 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 ; Hypokalemia E87.6 ; Irritable bowel K58.9 and Nausea R11.0 [facility] [place] [id number] [place] [address] 65612 -9791 18 Dec, 2015 Generalized abdominal pain R10.84 [place] [id number] [place] [address] 47306- 9110 24 Nov, 2015 [facility] [place] [id number] [place] [address] 64006 -1063 14 Aug, 2015 Acute bronchitis J20.9 [place] [id number] [place] [address] 64522- 3131 14 Aug, 2015 [place] [address] 34786- 6997 08 Aug, 2015 Low back pain M54.5 ; Hypokalemia E87.6 ; Chronic migraine without aura with status migrainosus, not intractable G43.701 ; Tremor, hereditary, 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 ; Irritable bowel K58.9 ; Essential hypertension I10 and Seizure R56.9 [place] [address] 91710- 2392 07 Aug, 2015 [place] [address] 93884- 7533 09 Jul, 2015 [place] [address] 22084- 8463 03 Jul, 2015 Low back pain M54.5 ; Hypokalemia E87.6 ; Chronic migraine without aura with status migrainosus, not intractable G43.701 ; Tremor, hereditary, 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 ; Irritable bowel K58.9 ; Essential hypertension I10 and Seizure R56.9 [place] [id number] [place] [address] 34442- 3409 Jun, Hypokalemia E87.6 [place] [id number] [place] [address] 27948- 6300 Jun, ADD (attention deficit disorder) without hyperactivity F90.0 ; Generalized anxiety disorder F41.1 and Major depressive disorder, recurrent episode, moderate F33.1 [place] [id number] [place] [address] 21669- 5663 13 Jun, 2015 Low back pain M54.5 ; Hypokalemia E87.6 ; Chronic migraine without aura with status migrainosus, not intractable G43.701 ; Tremor, hereditary, 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 ; Irritable bowel K58.9 ; Essential hypertension I10 and Seizure R56.9 [place] [address] [place] [address] 00048- 0188 Jun, [place] [address] 94777- 6628 May, [place] [id number] [place] [address] 33448- 3320 May, Low back pain M54.5 ; Hypokalemia E87.6 ; Chronic migraine without aura with status migrainosus, not intractable G43.701 ; Tremor, hereditary, 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 ; Irritable bowel K58.9 ; Essential hypertension I10 ; Seizure R56.9 and Tinea capitis B35.0 [place] [id number] [place] [address] 38278- 5415 May, Low back pain M54.5 ; Hypokalemia E87.6 ; Chronic migraine without aura with status migrainosus, not intractable G43.701 ; Tremor, hereditary, 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 ; Irritable bowel K58.9 ; Essential hypertension I10 ; Seizure R56.9 ; Otitis media, left H66.92 and Dysuria 788.1 [place] [id number] [place] [address] 79739- 2007 14 May, 2015 Tooth pain K08.8 [place] [id number] [place] [address] 99002- 6061 May, [place] [id number] [place] [address] 29942- 4324 May, Low back pain M54.5 ; Hypokalemia E87.6 ; Chronic migraine without aura with status migrainosus, not intractable G43.701 ; Tremor, hereditary, 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 ; Irritable bowel K58.9 and Essential hypertension I10 [place] [id number] [place] [address] 52204- 1408 Apr, Low back pain M54.5 ; Hypokalemia E87.6 ; Chronic migraine without aura with status migrainosus, not intractable G43.701 ; Tremor, hereditary, 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 and Irritable bowel K58.9 [facility] [id number] [place] [address] 67421- 8830 Apr, Low back pain M54.5 [facility] [id number] [place] [address] 46724- 9336 Mar, [facility] [address] 47768- 6664 Mar, Irritable bowel syndrome with diarrhea K58.0 [facility] [id number] [place] [address] 08972- 9373 Mar, [facility] [address] 89443- 2658 Feb, [place] [address] 90777- 5652 Feb, [facility] [address] 32387- 9350 Feb, Irritable bowel syndrome 564.1 ; Lumbago 724.2 and Cervical pain (neck) 723.1 [place] [id number] [place] [address] 82994- 9331 Dec, Major depressive disorder, recurrent episode, moderate 296.32 and Generalized anxiety disorder 300.02 [place] [id number] [place] [address] 92407- 5651 Nov, [facility] [id number] [place] [address] 94707- 3079 Nov, Major depressive disorder, recurrent episode, moderate 296.32 [place] [address] 52959- 3767 Nov, Constipation 564.00 ; Nausea & vomiting 787.01 and Abdominal pain 789.00 [place] [id number] [place] [address] 19642- 4874 Nov, [place] [address] [facility] [id number] [place] [address]- 9349 October, [facility] [address] [facility] [id number] [place] [address]- 5619 October, [facility] [place] [facility] [address] [facility] [id number] [place] [address]- 3037 October, [facility] [address] [facility] [id number] [place] [address], [place] [address]- 0759 October, [facility] [place] [facility] [address] [facility] [id number] [place] [address]- 0162 Sep, Dysuria 788.1 [facility] [address] [facility] [id number] [place] [address], [place] [address]- 3212 Sep, [facility] [id number] [place] [address]- 9152 Sep, [facility] [address] [place] [address]- 5839 Sep, [facility] [place] [facility] [id number] [place] [address]- 7908 Sep, [facility] [address] [place] [address]- 0196 Aug, [facility] [place] [facility] [address] [place] [address]- 2626 Aug, [facility] [place] [facility] [address] [id number] [place] [address]- 4722 Aug, [facility] [place] [facility] [address] [facility] [id number] [place] [address]- 0720 Aug, [facility] [place] [facility] [address] [facility] [id number] [place] [address]- 6910 Aug, [facility] [place] [facility] [address] [facility] [id number] [place]- 9302 Aug, [facility] [place] [facility] [id number] [place] [address]- 2546 Aug, [facility] [place] [facility] [address] [id number] [place] [address]- 8675 Aug, [facility] [place] [facility] [address] [id number] [place] [address]- 2056 Aug, [facility] [place] [facility] [address] [id number] [place] [address]- 9202 Aug, [facility] [place] [facility] [address] [id number] [place] [address]- 2638 Jun, [facility] [place] [facility] [address] [id number] [place] [address]- 4894 Jun, [facility] [place] [facility] [address] [id number] [place] [address]- 1812 Jun, [facility] [place] [facility] [address] [id number] [place] [address]- 7926 Jun, [facility] [place] [facility] [address] [id number] [place] [address]- 9392 May, [facility] [place] [facility] [address] [id number] [place]- 3318 May, [facility] [place] [facility] [address] [id number] [place] [address]- 8840 May, [facility] [place] [facility] [address] [id number] [place] [address]- 0720 May, [facility] [place] [facility] [address] [id number] [place] [address]- 8648 May, [facility] [place] [facility] [address] [id number] [place] [address]- 3730 May, [facility] [place] [facility] [address] [id number] [place] [address]- 2894 May, [facility] [place] [facility] [address] [id number] [place] [address]- 3713 May, [facility] [place] [facility] [address] [id number] [place] [address]- 1233 Mar, [facility] [place] [facility] [address] [id number] [place] [address]- 3478 Mar, [facility] [place] [facility] [address] [id number] [place] [address]- 3857 Mar, [facility] [place] [facility] [address] [id number] [place] [address]- 0775 Mar, [facility] [place] [facility] [address] [id number] [place] [address]- 7974 Mar, [facility] [place] [facility] [address] [id number] [place] [address]- 0215 Mar, [facility] [place] [facility] [address] [id number] [place] [address]- 7855 Mar, [facility] [place] [facility] [address] [id number] [place] [address]- 8172 Mar, [facility] [place] [facility] [address] [id number] [place] [address]- 7144 Mar, [facility] [place] [facility] [address] [id number] [place] [address]- 9683 Mar, [facility] [place] [facility] [address] [id number] [place] [address]- 8835 Mar, [facility] [place] [facility] [address] [id number] [place] [address]- 9724 Mar, [facility] [place] [facility] [address] [id number] [place] [address]- 4344 Feb, [facility] [place] [facility] [address] [id number] [place] [address]- 4785 24 Feb, 2014 [facility] [place] [facility] [address] [id number] [place] [address]- 1808 Feb, [facility] [place] [facility] [address] [id number] [place] [address]- 6293 Feb, [facility] [place] [facility] [address] [id number] [place] [address]- 5424 Feb, [facility] [place] [facility] [address] [id number] [place] [address]- 5038 Feb, [facility] [place] [facility] [address] [id number] [place] [address]- 0987 Jan, [facility] [place] [facility] [address] [id number] [place] [address]- 2925 Jan, [facility] [place] [facility] [address] [id number] [place] [address]- 5019 Jan, [facility] [place] [facility] [address] [id number] [place] [address]- 2701 Jan, [facility] [place] [facility] [address] [id number] [place] [address]- 7241 Jan, [facility] [place] [facility] [address] [id number] [place] [address]- 3408 Jan, [facility] [place] [facility] [address] [id number] [place] [address]- 9998 Jan, [facility] [place] [facility] [address] [id number] [place] [address]- 6311 Jan, [facility] [place] [facility] [address] [id number] [place] [address]- 0969 Dec, [facility] [place] [facility] [address] [id number] [place] [address]- 9433 Dec, [facility] [place] [facility] [address] [id number] [place] [address]- 4779 Dec, [facility] [place] [facility] [address] [id number] [place] [address]- 3754 Dec, [facility] [place] [facility] [address] [id number] [place] [address]- 1052 Dec, [facility] [place] [facility] [address] [id number] [place] [address]- 6313 Dec, [facility] [place] [facility] [address] [id number] [place] [address]- 5294 Dec, [facility] [place] [facility] [address] [id number] [place] [address]- 9674 Dec, [facility] [place] [facility] [address] [id number] [place] [address]- 3432 October, [facility] [place] [facility] [address] [id number] [place] [address]- 2762 October, [facility] [place] [facility] [address] [id number] [place] [address]- 3871 Sep, [facility] [place] [facility] [address] [id number] [place] [address] Sep, [facility] [place] [facility] [address] [id number] [place] [address] Sep, [facility] [place] [facility] [address] [id number] [place] [address] Sep, [facility] [place] [facility] [address] [id number] [place] [address] Sep, [facility] [place] [facility] [address] [id number] [place] [address] Sep, [facility] [place] [facility] [address] [id number] [place] [address] Sep, [facility] [place] [facility] [address] [id number] [place] [address] Sep, [facility] [place] [facility] [address] [id number] [place] [address] Sep, [facility] [place] [facility] [address] [id number] [place] [address] Sep, [facility] [place] [facility] [address] [id number] [place] [address] Sep, [facility] [place] [facility] [address] [id number] [place] [address] Sep, [facility] [place] [facility] [address] [id number] [place] [address] Aug, [facility] [place] [facility] [address] [id number] [place] [address] Aug, [facility] [place] [facility] [address] [id number] [place] [address] Aug, [facility] [place] [facility] [address] [id number] [place] [address] Jun, [facility] [place] [facility] [address] [id number] [place] [address] Jun, [facility] [place] [facility] [address] [id number] [place] [address] Jun, [facility] [place] [facility] [address] [id number] [place] [address] Jun, [facility] [place] [facility] [address] [id number] [place] [address] Jun, [facility] [place] [facility] [address] [id number] [place] [address] Jun, [facility] [place] [facility] [address] [id number] [place] [address] Jun, [facility] [place] [facility] [address] [id number] [place] [address] Jun, [facility] [place] [facility] [address] [id number] [place] [address] Jun, [facility] [place] [facility] [address] [id number] [place] [address] Jun, [facility] [place] [facility] [address] [id number] [place] [address] May, [facility] [place] [facility] [address] [id number] [place] [address] May, [facility] [place] [facility] [address] [id number] [place] [address] May, [facility] [place] [facility] [address] [id number] [place] [address] May, [facility] [place] [facility] [address] [id number] [place] [address] Apr, [facility] [place] [facility] [address] [id number] [place] [address] Apr, [facility] [place] [facility] [address] [id number] [place] [address] Apr, [facility] [place] [facility] [address] [id number] [place] [address] Apr, [facility] [place] [facility] [address] [id number] [place] [address] Apr, [facility] [place] [facility] [address] [id number] [address] Apr, [facility] [place] [facility] [address] [id number] [place] [address] Apr, [facility] [place] [facility] [address] [id number] [place] [address] Apr, [facility] [place] [facility] [address] [id number] [place] [address] Mar, [facility] [place] [facility] [address] [id number] [place] [address] Mar, [facility] [place] [facility] [address] [id number] [place] [address] Mar, [facility] [place] [facility] [address] [id number] [place] [address] Mar, [facility] [place] [facility] [address] [facility] [id number] [place] [address] Mar, [facility] [place] [facility] [address] [id number] [place] [address] 23 Feb, 2012 [facility] [address] [id number] [place] [address] 11 Feb, 2013 [facility] [place] [facility] [address] [id number] [place] [address] 05 Feb, 2013 [facility] [address] [id number] [place] [address] 05 Feb, 2012 [facility] [place] [facility] [address] [id number] [place] [address] 04 Feb, 2013 [facility] [place] [facility] [address] [id number] [place] [address]36 30 Jan, 2013 [facility] [place] [facility] [address] [id number] [place] [address] Jan, [facility] [address] [id number] [place] [address] Nov, [facility] [place] [facility] [address] [id number] [place] [address] Nov, [facility] [place] [facility] [address] [id number] [place] [address] Nov, [facility] [place] [facility] [address] [id number] [place] [address] Nov, [facility] [place] [facility] [address] [id number] [place] [address] October, [facility] [place] [facility] [address] [id number] [place] [address] Sep, [facility] [place] [facility] [address] [id number] [place] [address] 39[address] Aug, [facility] [place] [facility] [address] [id number] [place] [address]105 Aug, [facility] [place] [facility] [address] [id number] [place] [address] 99[address] Aug, [facility] [place] [facility] [address] [id number] [place] [address] 280[address] Aug, [facility] [place] [facility] [address] [id number] [place] [address] Jul, [facility] [place] [facility] [address] [id number] [place] [address] Jun, [facility] [place] [facility] [address] [id number] [place] [address] Jun, [facility] [place] [facility] [address] [id number] [place] [address] May, [facility] [place] [facility] [address] [id number] [place] [address] May, [facility] [place] [facility] [address] [id number] [place] [id number] Mar, [facility] [place] [facility] [address] [id number] [place] [address] Mar, [facility] [place] [facility] [address] [id number] [place] [address] 45[address] Mar, [facility] [place] [facility] [address] [id number] [place] [address] 9884 Mar, [facility] [place] [facility] [address] [id number] [place] [address] 83[address] Mar, [facility] [place] [facility] [address] [id number] [address] Mar, [facility] [place] [facility] [address] [id number] [place] [address] Mar, [facility] [place] [facility] [address] [id number] [place] [address] 8795 Mar, [facility] [place] [facility] [address] [id number] [place] [address] 5474 Mar, [facility] [place] [facility] [address] [id number] [place] [address] 20 Mar, 2012 [facility] [place] [facility] [address] [id number] [place] [address] 1027 20 Mar, 2011 [facility] [place] [facility] [address] [id number] [place] [address] 0417 17 Mar, 2011 [facility] [place] [facility] [address] [id number] [place] [address] 4797 17 Mar, 2012 [facility] [place] [facility] [address] [id number] [place] [address] 15 Mar, 2012 [facility] [place] [facility] [address] [id number] [place] [address] 6933 15 Mar, 2012 [facility] [place] [facility] [address] [id number] [place] [address] 1793 15 Mar, 2012 [facility] [place] [facility] [address] [id number] [place] [address] 6838 15 Mar, 2012 [facility] [place] [facility] [address] [id number] [place] [address] Mar, [facility] [place] [facility] [address] [id number] [place] [address] Mar, [facility] [place] [facility] [address] [id number] [place] [address] 2845 08 Mar, 2012 [facility] [place] [facility] [address] [id number] [place] [address] 8979 08 Mar, 2012 [facility] [place] [facility] [address] [id number] [place] [address] Mar, [facility] [place] [facility] [address] [id number] [place] [address] 0229 Mar, [facility] [place] [facility] [address] [facility] [id number] [place] [address] 19 Feb, 2012 [facility] [place] [facility] [address] [id number] [place] [address] 18 Sep2011 [facility] [place] [facility] [address] [id number] [place] [address] 3712 17 Feb, 2011 [facility] [place] [facility] [address] [id number] [place] [address]306 14 Feb, 2011 [facility] [place] [facility] [address] [id number] [place] [address] 2546 14 Feb, 2012 [facility] [place] [facility] [address] [id number] [place] [address]- 4136 12 Feb, 2012 [facility] [place] [facility] [address] [id number] [place] [address] 2544 10 Feb, 2012 [facility] [place] [facility] [address] [id number] [place] [address]- 6166 31 Jan, 2012 [facility] [place] [facility] [address] [id number] [place] [address]- 5042 30 Jan, 2012 [facility] [place] [facility] [address] [id number] [place] [address] 7349 22 Jan, 2012 [facility] [place] [facility] [address] [id number] [place] [address] 8510 20 Jan, 2012 [facility] [place] [facility] [address] [id number] [place] [address] 5480 17 Jan, 2012 [facility] [address] [id number] [place] [address] 6737 17 Jan, 2012 [facility] [place] [facility] [address] [id number] [place] [address] 2549 17 Jan, 2012 [facility] [place] [facility] [address] [id number] [place] [address]- 2545 16 Jan, 2012 [facility] [place] [facility] [address] [id number] [place] [address]- 4472 13 Jan, 2012 [facility] [place] [facility] [address] [id number] [place] [address]- 2548 07 Jan, 2012 [facility] [place] [facility] [address] [id number] [place] [address]- 9772 26 Dec, 2011 [facility] [place] [facility] [address] [id number] [place] [address]- 8908 24 Dec, 2011 [facility] [place] [facility] [address] [id number] [place] [address]- 6486 23 Dec, 2011 [facility] [place] [facility] [address] [id number] [place] [address]- 7831 19 Dec, 2011 [facility] [place] [facility] [address] [id number] [place] [address] 9039 18 Dec, 2011 [facility] [place] [facility] [address] [id number] [place] [address]- 2676 17 Dec, 2011 [facility] [place] [facility] [address] [id number] [place] [address]- 6393 16 Dec, 2011 [facility] [place] [facility] [address] [id number] [place] [address]- 9621 14 Dec, 2011 [facility] [place] [facility] [address] [id number] [place] [address]- 6919 Dec, [facility] [place] [facility] [address] [id number] [place] [address]- 8449 Dec, [facility] [place] [facility] [address] [id number] [place] [address] 1968 Dec, [facility] [place] [facility] [address] [id number] [place] [address]- 8498 Nov, [facility] [place] [facility] [address] [id number] [place] [address] 1972 Nov, [facility] [place] [facility] [address] [id number] [place] [address]- 2407 Nov, [facility] [place] [facility] [address] [id number] [place] [address]- 6491 Nov, [facility] [place] [facility] [address] [id number] [place] [address]- 2579 Nov, [facility] [place] [facility] [address] [id number] [address] Nov, [facility] [address] [facility] [id number] [place] [id number] Nov, [facility] [address] [facility] [id number] [place] [address] 9525 Nov, [facility] [address] [facility] [id number] [place] [address] Nov, [facility] [address] [facility] [id number] [place] [address] Nov, [facility] [address] [facility] [id number] [place] [address] October, IMMUNIZATIONS No Known Immunizations SOCIAL HISTORY Never Assessed REASON FOR VISIT Lab (walk-in)---[facility] PLAN OF CARE VITAL SIGNS MEDICATIONS Unknown Medications RESULTS Name Result Date Reference Range HEPATITIS PROFILE 2017-05-02 HEPATITIS A IGM NON-REACTIVE NON-REACTIVE HEPATITIS B SURFACE ANTIGEN NON-REACTIVE NON-REACTIVE HEPATITIS B CORE ANTIBODY (IGM) NON-REACTIVE NON-REACTIVE HEPATITIS C ANTIBODY NON-REACTIVE NON-REACTIVE SIGNAL TO CUT-OFF 0.02 <1.00 PROCEDURES Procedure Date Ordered Result Body Site LAB NOT BILLED BY [facility] May 02, 2017 VENLEATHA, ROUTINE* May 02, 2017 INSTRUCTIONS MEDICATIONS ADMINISTERED No Known Medications [...] then removal 2011 Surgical History tubal ligation 2004 Surgical History hysterectomy-total 2005 Surgical History lower [...]
--- OUTSIDE RECORDS SUMMARY | 2018-01-12 08:53 | XMS REPORT ---
Author PILY Ivey Organization [employer] Address Unknown Phone Unavailable Care Team Providers Care Software Deployment Engineer Name Role Phone PILY PORTILLO CP Unavailable Allergies No Known Allergies Problems Problem Type Condition ICD-9 Code Onset Dates Condition Status Problem Unspecified otalgia 388.70 Active Problem Dysuria 788.1 Active Problem Unspecified backache 724.5 Active Problem Asthma, unspecified, unspecified status 493.90 Active Problem Attention deficit disorder of childhood without mention of hyperactivity 314.00 Active Problem Irritable bowel syndrome 564.1 Active Problem Cervical pain (neck) 723.1 Active Problem Migraine, unspecified without mention of intractable migraine without mention of status migrainosus 346.90 Active Problem Anxiety state, unspecified 300.00 Active Problem Encounter for long-term (current) use of other medications V58.69 Active Problem Unspecified symptom associated with female genital organs 625.9 Active Problem Abdominal pain, generalized 789.07 Active Problem Lumbago 724.2 Active Problem Generalized anxiety disorder 300.02 Active Problem Major depressive disorder, recurrent episode, moderate 296.32 Active Problem Urinary tract infection, site not specified 599.0 Active Problem Acute pain due to trauma 338.11 Active Problem Cough 786.2 Active Problem Major depressive disorder, recurrent episode, mild 296.31 Active Problem Posttraumatic stress disorder 309.81 Active Problem Dental caries limited to enamel 521.01 Active Medications No Known Medications Results No Known Results Summary Purpose [employer] Submission
--- OUTSIDE RECORDS SUMMARY | 2018-01-12 08:53 | XMS REPORT ---
Author PILY Ivey Organization [employer] Address Unknown Phone Unavailable Care Team Providers Care Congressional Representative Name Role Phone PILY PORTILLO CP Unavailable [...]
--- OUTSIDE RECORDS SUMMARY | 2018-01-12 08:53 | XMS REPORT ---
Author Author RICKY FRIEND [facility] Address [address] [place] [address] Care Team Providers Care Prescriptionist Name Role Phone RICKY FRIEND Unavailable PROBLEMS Type Condition ICD9-CM Code [id number] Code Onset Dates Condition Status SNOMED Code Problem Hypokalemia E87.6 Active 22033050 Problem 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 Active 84331783 Problem Essential hypertension I10 Active 81737889 Problem Intractable chronic migraine without aura and with status migrainosus G43.711 Active 270179807 Problem Moderate persistent asthma with exacerbation J45.41 Active 128968334 Problem Seizure disorder G40.909 Active 880743044 Problem Other chronic pain G89.29 Active 61087371 Problem Moderate persistent asthma without complication J45.40 Active 154437047 Problem Primary insomnia F51.01 Active 3297279 Problem Abnormal glucose R73.09 Active 647010378 Problem Major depressive disorder, recurrent episode, moderate F33.1 Active 801570514 Problem Tremor, hereditary, 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 Active 847013480 Problem Elevated liver enzymes R74.8 Active 633394072 Problem Irritable bowel K58.9 Active 93074234 Problem Hyperlipidemia LDL goal <100 E78.5 Active 83732140 Problem Chronic migraine without aura with status migrainosus, not intractable G43.701 Active 924060508 ALLERGIES No Information ENCOUNTERS Encounter Location Date Diagnosis [facility], [place] [address] [facility] [id number] [address] Aug, Elevated liver enzymes R74.8 and Hyperlipidemia LDL goal < 100 E78.5 [facility], [place] [address] [id number] [address] 98[address] Aug, [facility], [place] [address] [id number] [address] Jul, [place] [id number] [place] [address] 53795- 1342 Jul, Intractable chronic migraine without aura and with status migrainosus G43.711 ; Fever, unspecified fever cause R50.9 and Elevated liver enzymes R74.8 [place] [id number] [place] [address] 98972- 2315 Jun, Difficulty urinating R39.198 and Moderate persistent asthma with exacerbation J45.41 [place] [id number] [place] [address] 86782- 2341 Jun, [place] [address] 8[address]47- 6877 Jun, Moderate persistent asthma with exacerbation J45.41 [place] [address] 29598- 0384 May, Elevated liver enzymes R74.8 and Hyperlipidemia LDL goal < 100 E78.5 [place] [address] 90244- 4147 May, Elevated lipids E78.5 [place] [address] 23905- 7950 Apr, Elevated liver enzymes R74.8 [place] [address] 21023- 4998 Apr, Elevated liver enzymes R74.8 [place] [address] 81843- 1615 Apr, Superior glenoid labrum lesion of right shoulder, subsequent encounter S43.431D [place] [address] 63206- 6686 Apr, Hypokalemia E87.6 ; Major depressive disorder, recurrent episode, moderate F33.1 ; Other abnormalities of breathing R06.89 and Dyspnea, unspecified R06.00 [facility] [id number] [place] [address] 88993 -6847 Mar, Moderate persistent asthma without complication J45.40 [facility], [place] [id number] [place] [address] 45048- 3247 Mar, Impingement syndrome of right shoulder M75.41 [facility], [place] [id number] [place] [address] 23412- 5420 Jan, [facility], [place] [id number] [place] [address] 18375- 2242 Jan, Chronic migraine without aura with status migrainosus, not intractable G43.701 ; Essential hypertension I10 ; Irritable bowel K58.9 ; Primary insomnia F51.01 and Hypokalemia E87.6 [facility], [place] [id number] [place] [address] 13968- 0054 Dec, [facility], [place] [id number] [place] [address] 77804- 2810 Dec, Pain in right shoulder M25.511 [facility], [place] [id number] [place] [address] 72314- 5862 Dec, Essential hypertension I10 [facility], [place] [id number] [place] [address] 28942- 2852 Dec, [facility], [place] [id number] [place] [address] 83493- 7018 Nov, Essential hypertension I10 [facility], [place] [id number] [place] [address] 19233- 6030 14 Nov, 2016 Pain in right shoulder M25.511 [facility], [place] [id number] [place] [address] 02333- 5269 Nov, Pain in right shoulder M25.511 [facility], [place] [id number] [place] [address] 60137- 0240 October, [facility], [place] [id number] [place] [address] 46871- 7548 October, Pain in right shoulder M25.511 [place] [id number] [place] [address] 18587- 9100 Sep, Arm pain, right M79.601 [place] [id number] [place] [address] 64491- 0173 Sep, [place] [id number] [place] [address] 61616- 4154 Sep, Abnormal glucose R73.09 and Elevated lipids E78.5 [place] [id number] [place] [address] 93833- 0850 Sep, Abnormal glucose R73.09 and Elevated lipids E78.5 [place] [id number] [place] [address] 25267- 4817 Aug, [place] [id number] [place] [address] 02039- 0509 Aug, [place] [id number] [place] [address] 49991- 5279 Aug, [place] [id number] [place] [address] 45247- 9235 Aug, 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 ; Hypokalemia E87.6 ; Irritable bowel K58.9 ; Essential hypertension I10 ; Pain in right shoulder M25.511 ; Seizure disorder G40.909 and Screening for lipid disorders Z13.220 [place] [id number] [place] [address] 93825- 8963 Jul, Other chronic pain G89.29 and Pain in right shoulder M25.511 [place] [id number] [place] [address] 43856- 4512 14 Jul, 2016 Biceps muscle strain, right, subsequent encounter S46.111D [facility] [id number] [place] [address] 01603 -5640 08 Jul, 2016 Arm pain, right M79.601 [place] [id number] [place] [address] 60480- 8638 Jun, [facility], [place] [id number] [place] [address] 46486- 9365 Jun, Acute non-recurrent frontal sinusitis J01.10 [place] [id number] [place] [address] 07664- 5512 May, Generalized abdominal pain R10.84 ; Urinary tract infection without hematuria, site unspecified N39.0 ; Hypokalemia E87.6 ; Essential hypertension I10 ; Screening for lipid disorders Z13.220 ; Seizure R56.9 and Low back pain M54.5 [place] [id number] [place] [address] 68780- 4062 Apr, [facility] [id number] [place] [address] 18050 -7496 Feb, [place] [id number] [place] [address] 47709- 3795 Jan, [place] [id number] [place] [address] 57090- 8818 Dec, 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 ; Hypokalemia E87.6 ; Irritable bowel K58.9 and Nausea R11.0 [facility] [place] [id number] [place] [address] 93344 -7182 Dec, Generalized abdominal pain R10.84 [place] [id number] [place] [address] 68794- 4184 Nov, [facility] [id number] [place] [address] 77815 -2571 Aug, Acute bronchitis J20.9 [place] [id number] [place] [address] 72583- 5977 14 Aug, 2015 [place] [id number] [place] [address] 76141- 5747 08 Aug, 2015 Low back pain M54.5 ; Hypokalemia E87.6 ; Chronic migraine without aura with status migrainosus, not intractable G43.701 ; Tremor, hereditary, 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 ; Irritable bowel K58.9 ; Essential hypertension I10 and Seizure R56.9 [place] [id number] [place] [address] 20570- 4341 Aug, [place] [address] 75077- 7804 Jul, [place] [address] 28449- 2272 Jul, Low back pain M54.5 ; Hypokalemia E87.6 ; Chronic migraine without aura with status migrainosus, not intractable G43.701 ; Tremor, hereditary, 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 ; Irritable bowel K58.9 ; Essential hypertension I10 and Seizure R56.9 [place] [address] 01092- 3830 Jun, Hypokalemia E87.6 [place] [id number] [place] [address] 81090- 8596 15 Jun, 2015 ADD (attention deficit disorder) without hyperactivity F90.0 ; Generalized anxiety disorder F41.1 and Major depressive disorder, recurrent episode, moderate F33.1 [place] [id number] [place] [address] 94478- 9676 Jun, Low back pain M54.5 ; Hypokalemia E87.6 ; Chronic migraine without aura with status migrainosus, not intractable G43.701 ; Tremor, hereditary, 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 ; Irritable bowel K58.9 ; Essential hypertension I10 and Seizure R56.9 [place] [address] 93642- 0970 Jun, [place] [id number] [place] [address] 99202- 4170 May, [place] [address] 97362- 8692 30 May, 2015 Low back pain M54.5 ; Hypokalemia E87.6 ; Chronic migraine without aura with status migrainosus, not intractable G43.701 ; Tremor, hereditary, 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 ; Irritable bowel K58.9 ; Essential hypertension I10 ; Seizure R56.9 and Tinea capitis B35.0 [place] [address] 33297- 6354 May, Low back pain M54.5 ; Hypokalemia E87.6 ; Chronic migraine without aura with status migrainosus, not intractable G43.701 ; Tremor, hereditary, 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 ; Irritable bowel K58.9 ; Essential hypertension I10 ; Seizure R56.9 ; Otitis media, left H66.92 and Dysuria 788.1 [place] [address] 06973- 7983 May, Tooth pain K08.8 [place] [address] 13431- 0227 May, [place] [address] 66553- 8521 May, Low back pain M54.5 ; Hypokalemia E87.6 ; Chronic migraine without aura with status migrainosus, not intractable G43.701 ; Tremor, hereditary, 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 ; Irritable bowel K58.9 and Essential hypertension I10 [place] [address] 62801- 4842 Apr, Low back pain M54.5 ; Hypokalemia E87.6 ; Chronic migraine without aura with status migrainosus, not intractable G43.701 ; Tremor, hereditary, 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 and Irritable bowel K58.9 [place] [id number] [place] [address] 51288- 5369 05 Apr, 2015 Low back pain M54.5 [place] [address] 53229- 3796 Mar, [facility], [place] [id number] [address] Mar, Irritable bowel syndrome with diarrhea K58.0 [facility], [place] [id number] [place] [address] 04200- 2146 Mar, [facility], [place] [id number] [place] [address] 67681- 9878 Feb, [facility], [place] [id number] [place] [address] 73412- 5801 Feb, [facility], [place] [id number] [place] [address] 14336- 4090 Feb, Irritable bowel syndrome 564.1 ; Lumbago 724.2 and Cervical pain (neck) 723.1 [facility], [place] [id number] [place] [address] 422559- 0255 Dec, Major depressive disorder, recurrent episode, moderate 296.32 and Generalized anxiety disorder 300.02 [facility], [place] [id number] [place] [address] 84587- 8288 Nov, [facility], [place] [id number] [place] [address] 381648- 8585 Nov, Major depressive disorder, recurrent episode, moderate 296.32 [facility], [place] [id number] [place] [address] 331749- 3776 Nov, Constipation 564.00 ; Nausea & vomiting 787.01 and Abdominal pain 789.00 [facility], [place] [id number] [place] [address] 864526- 3451 Nov, [facility], [place] [id number] [place] [address] 306712- 7243 October, [facility], [place] [id number] [place] [address] 881282- 8597 October, [facility], [place] [id number] [place] [address] 87096- 4772 October, [facility] [address] [id number] [place] [address]- 5302 October, [facility] [place] [facility] [address] [id number] [place] [address]- 9379 Sep, Dysuria 788.1 [facility] [address] [id number] [place] [address]- 8066 Sep, [facility] [place] [facility] [address] [id number] [place] [address]- 3966 Sep, [facility] [place] [facility] [address] [facility] [id number] [place] [address], [place] [address]- 9141 Sep, [facility] [place] [facility] [address] [id number] [place] [address], [place] [address]- 6300 Sep, [facility] [place] [facility] [id number] [place] [address], [place] [address]- 9812 Aug, [facility] [place] [facility] [address] [facility] [id number] [place] [address]- 9444 Aug, [facility] [place] [facility] [id number] [address]- 5547 Aug, [facility] [place] [facility] [address] [facility] [id number] [place] [address]- 6955 Aug, [facility] [place] [facility] [address] [address]- 9041 Aug, [facility] [place] [facility] [address] [facility] [id number] [address]- 3921 Aug, [facility] [place] [facility] [address] [facility] [id number] [place] [address]- 6891 Aug, [facility] [place] [facility] [address] [facility] [id number] [place] [address]- 5661 Aug, [facility] [place] [facility] [id number] [place] [address]- 0500 Aug, [facility] [place] [facility] [address] [id number] [place] [address]- 2386 Aug, [facility] [place] [facility] [address] [id number] [place] [address]- 9285 Jun, [facility] [place] [facility] [address] [id number] [place] [address]- 0796 Jun, [facility] [place] [facility] [address] [id number] [place] [address]- 9796 Jun, [facility] [place] [facility] [address] [id number] [place] [address]- 0000 Jun, [facility] [place] [facility] [address] [id number] [place] [address]- 2751 May, [facility] [place] [facility] [address] [id number] [place] 5676 May, [facility] [place] [facility] [address] [id number] [place] [address]- 5575 May, [facility] [place] [facility] [address] [id number] [place] [address]- 5045 May, [facility] [place] [facility] [address] [id number] [place] [address]- 2294 May, [facility] [place] [facility] [address] [facility] [id number] [place] [address]- 3726 May, [facility] [place] [facility] [address] [id number] [place] [address]- 2568 May, [facility] [place] [facility] [address] [id number] [place] [address]- 2734 May, [facility] [place] [facility] [address] [id number] [place] [address]- 2042 Mar, [facility] [place] [facility] [address] [id number] [place] [address]- 2316 Mar, [facility] [place] [facility] [address] [id number] [place] [address]- 7424 Mar, [facility] [place] [facility] [address] [id number] [place] [address]- 2651 Mar, [facility] [place] [facility] [address] [id number] [place] [address]- 9914 Mar, [facility] [place] [facility] [address] [id number] [place] [address]- 5536 Mar, [facility] [place] [facility] [address] [id number] [place] [address]- 6263 Mar, [facility] [place] [facility] [address] [id number] [place] [address]- 0573 Mar, [facility] [place] [facility] [address] [id number] [place] [address]- 2723 Mar, [facility] [place] [facility] [address] [id number] [place] [address]- 4411 Mar, [facility] [place] [facility] [address] [id number] [place] [address]- 4002 Mar, [facility] [place] [facility] [address] [id number] [place] [address]- 1230 Mar, [facility] [place] [facility] [address] [id number] [place] [address]- 9941 24 Feb, 2014 [facility] [place] [facility] [address] [id number] [address]- 7958 24 Feb, 2014 [facility] [place] [facility] [address] [id number] [address]- 5269 22 Feb, 2014 [facility] [place] [facility] [address] [id number] [place] [address]- 5315 22 Feb, 2014 [facility] [place] [facility] [address] [id number] [place] [address]- 0773 10 Feb, 2014 [facility] [place] [facility] [address] [id number] [place] [address]- 4543 10 Feb, 2014 [facility] [place] [facility] [address] [id number] [place] [address]- 9946 Jan, [facility] [place] [facility] [address] [id number] [place] [address]- 2157 Jan, [facility] [place] [facility] [address] [id number] [place] [address]- 8723 Jan, [facility] [place] [facility] [address] [id number] [place] [address]- 0529 Jan, [facility] [place] [facility] [address] [id number] [place] [address]- 3379 Jan, [facility] [place] [facility] [address] [id number] [place] [address]- 5755 Jan, [facility] [place] [facility] [address] [id number] [place] [address]- 7638 Jan, [facility] [place] [facility] [address] [id number] [place] [address]- 6555 Jan, [facility] [place] [facility] [address] [id number] [place] [address]- 3273 Dec, [facility] [place] [facility] [address] [id number] [place] [address]- 5733 Dec, [facility] [place] [facility] [address] [id number] [place] [address]- 9574 Dec, [facility] [place] [facility] [address] [id number] [place] [address]- 4180 Dec, [facility] [place] [facility] [address] [id number] [place] [address]- 8559 Dec, [facility] [place] [facility] [address] [id number] [place] [address]- 5561 Dec, [facility] [place] [facility] [address] [id number] [place] [address]- 6446 Dec, [facility] [place] [facility] [address] [id number] [place] [address]- 7473 Dec, [facility] [place] [facility] [address] [id number] [place] [address]- 4888 October, [facility] [place] [facility] [address] [id number] [place] [address]- 0855 October, [facility] [place] [facility] [address] [id number] [place] [address]- 3705 Sep, [facility] [place] [facility] [address] [id number] [place] [address]- 3558 Sep, [facility] [place] [facility] [address] [id number] [place] [address]- 1821 Sep, [facility] [place] [facility] [address] [id number] [place] [address]- 0261 Sep, [facility] [place] [facility] [address] [id number] [place] [address]- 7837 Sep, [facility] [place] [facility] [address] [id number] [place] [address]- 9494 Sep, [facility] [place] [facility] [address] [id number] [place] [address]- 9004 Sep, [facility] [place] [facility] [address] [id number] [place] [address]- 5180 Sep, [facility] [place] [facility] [address] [id number] [place] [address]- 0874 Sep, [facility] [place] [facility] [address] [id number] [place] [address]- 1448 Sep, [facility] [place] [facility] [address] [id number] [place] [address]- 9247 Sep, [facility] [place] [facility] [address] [id number] [place] [address]- 4437 Sep, [facility] [place] [facility] [address] [id number] [place] [address]- 7389 Aug, [facility] [place] [facility] [address] [id number] [place] [address]- 9296 Aug, [facility] [place] [facility] [address] [id number] [place] [address] Aug, [facility] [place] [facility] [address] [id number] [place] [address] Jun, [facility] [place] [facility] [address] [id number] [place] [address] Jun, [facility] [place] [facility] [address] [id number] [place] [address] Jun, [facility] [place] [facility] [address] [id number] [place] [address] Jun, [facility] [place] [facility] [address] [id number] [place] [address]67 Jun, [facility] [place] [facility] [address] [id number] [place] [address]255 Jun, [facility] [place] [facility] [address] [id number] [place] [address] Jun, [facility] [place] [facility] [address] [id number] [place] [address] Jun, [facility] [place] [facility] [address] [id number] [place] [address]- [address]68 Jun, [facility] [place] [facility] [address] [id number] [place] [address] Jun, [facility] [place] [facility] [address] [id number] [place] [address] May, [facility] [place] [facility] [address] [id number] [place] [address]- 98[address] May, [facility] [place] [facility] [address] [id number] [place] [address]- 1595 May, [facility] [place] [facility] [address] [id number] [place] [address]- [address]36 May, [facility] [place] [facility] [address] [id number] [place] [address]- [address] Apr, [facility] [address] [id number] [place] [address]- [address] Apr, [facility] [place] [facility] [address] [id number] [place] [address] Apr, [facility] [address] [id number] [place] [address] Apr, [facility] [place] [facility] [address] [id number] [place] [address]- 6960 Apr, [facility] [address] [id number] [place] [address] Apr, [facility] [address] [id number] [place] [address]- [address]60 Apr, [facility] [place] [facility] [address] [id number] [place] [address]- [address] Apr, [facility] [address] [id number] [place] [address]- 1663 Mar, [facility] [place] [facility] [address] [id number] [place] [address]- [address]237 Mar, [facility] [address] [id number] [place] [address]99 Mar, [facility] [place] [facility] [address] [id number] [place] [address]- [address] Mar, [facility] [place] [facility] [address] [id number] [place] [address]- 1653 Mar, [facility] [place] [facility] [address] [id number] [place] [address] 260[address] Feb, [facility] [place] [facility] [address] [id number] [place] [address] Feb, [facility] [place] [facility] [address] [id number] [place] [address]- [address] 05 Feb, 2013 [facility] [address] [id number] [place] [address]- [address] 05 Feb, 2013 [facility] [place] [facility] [address] [id number] [place] [address] Feb, [facility] [place] [facility] [address] [id number] [place] [address] Jan, [facility] [place] [facility] [address] [id number] [place] [address] Jan, [facility] [place] [facility] [address] [id number] [place] [address]- 267[address] Nov, [facility] [place] [facility] [address] [id number] [place] [address] Nov, [facility] [place] [facility] [address] [id number] [place] [address] Nov, [facility] [place] [facility] [address] [id number] [place] [address]- [address] Nov, [facility] [place] [facility] [address] [id number] [place] [address] October, [facility] [place] [facility] [address] [id number] [place] [address]- [address] Sep, [facility] [place] [facility] [address] [id number] [place] [address] 17[address] Aug, [facility] [place] [facility] [address] [id number] [place] [address] Aug, [facility] [place] [facility] [address] [id number] [place] [address] Aug, [facility] [place] [facility] [address] [id number] [place] [address] Aug, [facility] [place] [facility] [address] [id number] [place] [address] Jul, [facility] [place] [facility] [address] [id number] [place] [address] Jun, [facility] [place] [facility] [address] [id number] [place] [address] Jun, [facility] [place] [facility] [address] [facility] [id number] [place] [address] May, [facility] [place] [facility] [address] [id number] [place] [address] May, [facility] [place] [facility] [address] [facility] [id number] [place] [id number] Mar, [facility] [place] [facility] [address] [id number] [place] [address] Mar, [facility] [place] [facility] [address] [id number] [place] [address] 2016 Mar, [facility] [place] [facility] [address] [id number] [place] [address] Mar, [facility] [place] [facility] [address] [id number] [place] [address] Mar, [facility] [place] [facility] [address] [id number] [place] [address] Mar, [facility] [place] [facility] [address] [id number] [place] [address] Mar, [facility] [place] [facility] [address] [id number] [place] [address] Mar, [facility] [place] [facility] [address] [id number] [place] [address] Mar, [facility] [place] [facility] [address] [id number] [place] [address] Mar, [facility] [place] [facility] [address] [id number] [place] [address]248 Mar, [facility] [place] [facility] [address] [id number] [place] [address] 47[address] Mar, [facility] [place] [facility] [address] [id number] [place] [address] 1102 17 Mar, 2011 [facility] [place] [facility] [address] [id number] [place] [address] 15 Mar, 2012 [facility] [place] [facility] [address] [id number] [place] [address] 3946 15 Mar, 2011 [facility] [place] [facility] [address] [id number] [place] [address] 1104 15 Mar, 2012 [facility] [place] [facility] [address] [id number] [place] [address] 15 Mar, 2012 [facility] [place] [facility] [address] [id number] [place] [address] Mar, [facility] [place] [facility] [address] [id number] [place] [address] 3554 11 Mar, 2012 [facility] [place] [facility] [address] [id number] [place] [address]98 08 Mar, 2012 [facility] [place] [facility] [address] [id number] [place] [address] 08 Mar, 2012 [facility] [place] [facility] [address] [id number] [place] [address] 03 Mar, 2012 [facility] [place] [facility] [address] [id number] [place] [address]81 01 Mar, 2012 [facility] [place] [facility] [address] [id number] [place] [address] 19 Sep, 2011 [facility] [place] [facility] [address] [id number] [place] [address] 18 Sep, 2011 [facility] [place] [facility] [address] [id number] [place] [address] 17 Sep, 2011 [facility] [place] [facility] [address] [id number] [place] [address]396 14 Sep, 2011 [facility] [place] [facility] [address] [id number] [place] [address] 14 Feb, 2012 [facility] [place] [facility] [address] [id number] [place] [address] 12 Feb, 2012 [facility] [place] [facility] [address] [id number] [place] [address] 5061 10 Feb, 2012 [facility] [place] [facility] [address] [id number] [place] [address] 31 Jan, 2012 [facility] [place] [facility] [address] [id number] [place] [address] 30 Jan, 2012 [facility] [place] [facility] [address] [id number] [place] [address] 22 Jan, 2012 [facility] [place] [facility] [address] [id number] [place] [address] 136[address] 20 Jan, 2012 [facility] [place] [facility] [address] [id number] [place] [address] Jan, [facility] [place] [facility] [address] [id number] [place] [address] 39[address] Jan, [facility] [place] [facility] [address] [id number] [place] [address] Jan, [facility] [place] [facility] [address] [id number] [place] [address] 16 Jan, 2012 [facility] [place] [facility] [address] [id number] [place] [address] Jan, [facility] [place] [facility] [address] [id number] [place] [address] Jan, [facility] [place] [facility] [address] [id number] [place] [address] Dec, [facility] [place] [facility] [address] [id number] [place] [address]- [address] Dec, [facility] [place] [facility] [address] [id number] [place] [address] Dec, [facility] [place] [facility] [address] [id number] [place] [address]100 19 Dec, 2011 [facility] [place] [facility] [address] [id number] [place] [address] 0920 18 Dec, 2011 [facility] [place] [facility] [address] [id number] [place] [address] 4[address] 17 Dec, 2011 [facility] [place] [facility] [address] [id number] [place] [address]- [address] 16 Dec, 2011 [facility] [place] [facility] [address] [id number] [place] [address]- 7760 14 Dec, 2011 [facility] [place] [facility] [address] [id number] [place] [address]44 12 Dec, 2011 [facility] [place] [facility] [address] [id number] [place] [address]- 7643 12 Dec, 2011 [facility] [place] [facility] [address] [id number] [place] [address] 06 Dec, 2011 [facility] [place] [facility] [address] [id number] [place] [address] 4292 29 Nov, 2011 [facility] [place] [facility] [address] [id number] [place] [address] 3877 27 Nov, 2011 [facility] [place] [facility] [address] [id number] [place] [address] 8870 25 Nov, 2011 [facility] [place] [facility] [address] [id number] [place] [address] 6[address] 23 Nov, 2011 [facility] [place] [facility] [address] [id number] [place] [address]- 2544 21 Nov, 2011 [facility] [place] [facility] [address] [id number] [place] [address]- 4434 20 Nov, 2011 [facility] [place] [facility] [address] [id number] [place] [address]- 4718 13 Nov, 2011 [facility] [place] [facility] [address] [id number] [place] [address]- 2085 13 Nov, 2011 [facility] [place] [facility] [address] [facility] [id number] [place] [address] Nov, [facility] [place] [address] [facility] [id number] [place] [address] Nov, [facility] [place] [address] [facility] [id number] [place] [address] October, IMMUNIZATIONS No Known Immunizations SOCIAL HISTORY Never Assessed REASON FOR VISIT right shoulder pain-xrays from December. Consult Ricky Friend;Neo RT(R) PLAN OF CARE Activity Details Follow Up 7 WEEKS Reason: VITAL SIGNS Height 65 in 2017-03-14 Blood pressure systolic 128 mmHg 2017-03-14 Blood pressure diastolic 90 mmHg 2017-03-14 MEDICATIONS Unknown Medications RESULTS No Results PROCEDURES Procedure Date Ordered Result Body Site DRAIN/INJECT, JOINT/BURSA Mar 14, 2017 DEPO MEDROL 80 MG/ML Mar 14, 2017 INSTRUCTIONS MEDICATIONS ADMINISTERED No Known Medications [...] History hysterectomy-total 2005 Surgical History lower GI Archer José Miguel -not sure results Surgical History EGD Hospitalization [...]
--- OUTSIDE RECORDS SUMMARY | 2018-01-12 08:53 | XMS REPORT ---
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 Active 969778591 Problem Major depressive disorder, recurrent episode, moderate F33.1 Active 450908750 Problem Generalized anxiety disorder F41.1 Active 034786750 Problem ADD (attention deficit disorder) without hyperactivity F90.0 Active 72515088 Problem 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 Active 70619209 Problem Nausea R11.0 Active 582824062 Problem Low back pain M54.5 Active 924580258 Problem Hypokalemia E87.6 Active 96212816 Problem Seizure R56.9 Active 81259958 Problem Essential hypertension I10 Active 26830439 ALLERGIES Unknown Allergies SOCIAL HISTORY No smoking Hx information available PLAN OF CARE VITAL SIGNS Height 65 in 2016-02-29 Blood pressure systolic 128 mmHg 2016-02-29 Blood pressure diastolic 94 mmHg 2016-02-29 MEDICATIONS Unknown Medications RESULTS No Results PROCEDURES No Known procedures IMMUNIZATIONS No Known Immunizations
--- OUTSIDE RECORDS SUMMARY | 2018-01-12 08:54 | XMS REPORT ---
Author Author DIONY XIONG [facility] Address [address] [place] [address] Care Team Providers Care Accounting System Expert Name Role Phone DIONY XIONG Unavailable PROBLEMS Type Condition ICD9-CM Code [id number] Code Onset Dates Condition Status SNOMED Code Problem Hypokalemia E87.6 Active 85157670 Problem 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 Active 19122839 Problem Essential hypertension I10 Active 48428042 Problem Intractable chronic migraine without aura and with status migrainosus G43.711 Active 349791491 Problem Moderate persistent asthma with exacerbation J45.41 Active 049711963 Problem Seizure disorder G40.909 Active 151319755 Problem Other chronic pain G89.29 Active 00048644 Problem Moderate persistent asthma without complication J45.40 Active 883804118 Problem Primary insomnia F51.01 Active 5636099 Problem Abnormal glucose R73.09 Active 055919596 Problem Major depressive disorder, recurrent episode, moderate F33.1 Active 320127614 Problem Tremor, hereditary, 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 Active 964813862 Problem Elevated liver enzymes R74.8 Active 726505793 Problem Irritable bowel K58.9 Active 97042991 Problem Hyperlipidemia LDL goal <100 E78.5 Active 53879925 Problem Chronic migraine without aura with status migrainosus, not intractable G43.701 Active 193925625 ALLERGIES Substance Reaction Event Type Date Status Morphine Sulfate rebound headaches Drug Allergy Jan, Active Gabapentin coma Drug Allergy Jan, Active Amoxicillin itching Drug Allergy Jan, Active NSAIDS Hallucinations Non Drug Allergy Jan, Active ENCOUNTERS Encounter Location Date Diagnosis [facility] [address] [facility] [id number] [address] Sep, [facility] [address] [facility] [id number], [place] [address] Sep, [facility] [address] [address] Aug, Elevated liver enzymes R74.8 and Hyperlipidemia LDL goal < 100 E78.5 [place] [id number] [place] [address] 42148- 6773 Aug, [facility] [address] [place] [id number] [place] [address] 30444- 3014 Jul, [place] [address] [place] [id number] [place] [address] 00328- 3544 Jul, Intractable chronic migraine without aura and with status migrainosus G43.711 ; Fever, unspecified fever cause R50.9 and Elevated liver enzymes R74.8 [place] [address] [place] [id number] [place] [address] 72700- 0293 Jun, Difficulty urinating R39.198 and Moderate persistent asthma with exacerbation J45.41 [place] [address] [place] [id number] [place] [address] 80570- 6468 Jun, [place] [address] [place] [id number] [place] [address] 87296- 1307 Jun, Moderate persistent asthma with exacerbation J45.41 [place] [id number] [place] [address] 19548- 2969 May, Elevated liver enzymes R74.8 and Hyperlipidemia LDL goal < 100 E78.5 [place] [id number] [place] [address] 90685- 4672 May, Elevated lipids E78.5 [place] [id number] [place] [address] 25401- 9908 Apr, Elevated liver enzymes R74.8 [place] [id number] [place] [address] 70620- 7472 Apr, Elevated liver enzymes R74.8 [place] [id number] [place] [address] 34841- 9986 Apr, Superior glenoid labrum lesion of right shoulder, subsequent encounter S43.431D [facility] [address] [id number] [place] [address] 23625- 3565 Apr, Hypokalemia E87.6 ; Major depressive disorder, recurrent episode, moderate F33.1 ; Other abnormalities of breathing R06.89 and Dyspnea, unspecified R06.00 [facility]ALK IN [facility] [address] [address] Mar, Moderate persistent asthma without complication J45.40 [place] [address] 77183- 7014 Mar, Impingement syndrome of right shoulder M75.41 [place] [address] [place] [id number] [place] [address] 99285- 4895 Jan, [place] [address] 67973- 1559 Jan, Chronic migraine without aura with status migrainosus, not intractable G43.701 ; Essential hypertension I10 ; Irritable bowel K58.9 ; Primary insomnia F51.01 and Hypokalemia E87.6 [place] [address] 49831- 3473 Dec, [place] [address] [place] [id number] [place] [address] 53423- 9052 Dec, Pain in right shoulder M25.511 [place] [address] 26523- 6608 Dec, Essential hypertension I10 [facility] [id number] [place] [address] 26844- 1728 Dec, [place] [address] 19003- 0615 Nov, Essential hypertension I10 [place] [address] 65621- 0301 Nov, Pain in right shoulder M25.511 [place] [address], [place] [address] 6664 Nov, Pain in right shoulder M25.511 [facility] [address] [id number] [place] [address] 30677- 7640 October, [facility] [address] [id number] [place] [address] 33161- 7436 October, Pain in right shoulder M25.511 [facility] [address] [id number] [place] [address] 07269- 4303 Sep, Arm pain, right M79.601 [place] [address] [place] [id number] [place] [address] 40209- 6576 Sep, [facility] [address] [id number] [place] [address] 20576- 0813 Sep, Abnormal glucose R73.09 and Elevated lipids E78.5 [place] [address] [place] [id number] [place] [address] 69471- 5117 Sep, Abnormal glucose R73.09 and Elevated lipids E78.5 [place] [address] [place] [id number] [place] [address] 27302- 8311 Aug, [facility] [address] [id number] [place] [address] 20805- 1280 Aug, [place] [address] [place] [id number] [place] [address] 69181- 9964 Aug, [facility] [address] [address] [id number] [place] [address] 32160- 5888 Aug, 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 ; Hypokalemia E87.6 ; Irritable bowel K58.9 ; Essential hypertension I10 ; Pain in right shoulder M25.511 ; Seizure disorder G40.909 and Screening for lipid disorders Z13.220 [facility] [id number] [place] [address] 70514- 3510 Jul, Other chronic pain G89.29 and Pain in right shoulder M25.511 [place] [id number] [place] [address] 53118- 8289 14 Jul, 2016 Biceps muscle strain, right, subsequent encounter S46.111D [facility]ALK [facility] [place] [id number] [place] [address] 09319 -2600 08 Jul, 2016 Arm pain, right M79.601 [place] [address] 49409- 0520 30 Jun, 2016 [place] [address] [place] [id number] [place] [address] 18391- 0566 13 Jun, 2016 Acute non-recurrent frontal sinusitis J01.10 [place] [address] [place] [id number] [place] [address] 36292- 8741 14 May, 2016 Generalized abdominal pain R10.84 ; Urinary tract infection without hematuria, site unspecified N39.0 ; Hypokalemia E87.6 ; Essential hypertension I10 ; Screening for lipid disorders Z13.220 ; Seizure R56.9 and Low back pain M54.5 [place] [address] [place] [id number] [place] [address] 62094- 7752 Apr, [facility] [place] [address] [address] [id number] [place] [address] 56097 -5075 Feb, [place] [address] [place] [id number] [place] [address] 80587- 5629 Jan, [place] [address] [place] [id number] [place] [address] 79573- 4750 Dec, 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 ; Hypokalemia E87.6 ; Irritable bowel K58.9 and Nausea R11.0 [facility] [place] [id number] [place] [address] 92776 -0931 Dec, Generalized abdominal pain R10.84 [place] [address] [place] [id number] [place] [address] 30946- 1635 Nov, [facility] [place] [id number] [place] [address] 07082 -0685 14 Aug, 2015 Acute bronchitis J20.9 [place] [address] [place] [id number] [place] [address] 67544- 4730 14 Aug, 2015 [place] [address] [place] [id number] [place] [address] 12131- 1475 08 Aug, 2015 Low back pain M54.5 ; Hypokalemia E87.6 ; Chronic migraine without aura with status migrainosus, not intractable G43.701 ; Tremor, hereditary, 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 ; Irritable bowel K58.9 ; Essential hypertension I10 and Seizure R56.9 [place] [address] [place] [id number] [place] [address] 90287- 6873 Aug, [place] [address] [place] [id number] [place] [address] 81526- 5813 Jul, [place] [address] [place] [id number] [place] [address] 32046- 0651 03 Jul, 2015 Low back pain M54.5 ; Hypokalemia E87.6 ; Chronic migraine without aura with status migrainosus, not intractable G43.701 ; Tremor, hereditary, 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 ; Irritable bowel K58.9 ; Essential hypertension I10 and Seizure R56.9 [place] [address] [place] [id number] [place] [address] 16457- 0611 Jun, Hypokalemia E87.6 [place] [address] [place] [id number] [place] [address] 96200- 9118 Jun, ADD (attention deficit disorder) without hyperactivity F90.0 ; Generalized anxiety disorder F41.1 and Major depressive disorder, recurrent episode, moderate F33.1 [place] [id number] [place] [address] 59407- 0293 Jun, Low back pain M54.5 ; Hypokalemia E87.6 ; Chronic migraine without aura with status migrainosus, not intractable G43.701 ; Tremor, hereditary, 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 ; Irritable bowel K58.9 ; Essential hypertension I10 and Seizure R56.9 [place] [address] [place] [id number] [place] [address] 78762- 1587 Jun, [place] [address] [place] [id number] [place] [address] 19142- 6534 May, [place] [address] 84258- 1666 May, Low back pain M54.5 ; Hypokalemia E87.6 ; Chronic migraine without aura with status migrainosus, not intractable G43.701 ; Tremor, hereditary, 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 ; Irritable bowel K58.9 ; Essential hypertension I10 ; Seizure R56.9 and Tinea capitis B35.0 [place] [address] [place] [id number] [place] [address] 77943- 8944 May, Low back pain M54.5 ; Hypokalemia E87.6 ; Chronic migraine without aura with status migrainosus, not intractable G43.701 ; Tremor, hereditary, 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 ; Irritable bowel K58.9 ; Essential hypertension I10 ; Seizure R56.9 ; Otitis media, left H66.92 and Dysuria 788.1 [place] [address] [place] [id number] [place] [address] 85387- 9668 14 May, 2015 Tooth pain K08.8 [place] [address] [place] [id number] [place] [address] 78777- 9327 May, [place] [address] [place] [id number] [place] [address] 58241- 7899 May, Low back pain M54.5 ; Hypokalemia E87.6 ; Chronic migraine without aura with status migrainosus, not intractable G43.701 ; Tremor, hereditary, 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 ; Irritable bowel K58.9 and Essential hypertension I10 [place] [address] [place] [id number] [place] [address] 80451- 9823 Apr, Low back pain M54.5 ; Hypokalemia E87.6 ; Chronic migraine without aura with status migrainosus, not intractable G43.701 ; Tremor, hereditary, 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 and Irritable bowel K58.9 [facility] [address] [place] [id number] [place] [address] 35237- 4234 Apr, Low back pain M54.5 [place] [address] 90414- 1361 Mar, [facility] [address] 29991- 8921 Mar, Irritable bowel syndrome with diarrhea K58.0 [place] [address] 98970- 5122 Mar, [place] [address] 31898- 3184 Feb, [place] [address] 12679- 7885 Feb, [place] [address] 90661- 7046 Feb, Irritable bowel syndrome 564.1 ; Lumbago 724.2 and Cervical pain (neck) 723.1 [place] [address] [place] [id number] [place] [address] 86658- 9802 Dec, Major depressive disorder, recurrent episode, moderate 296.32 and Generalized anxiety disorder 300.02 [facility] [address] [place] [id number] [place] [address] 67469- 7193 Nov, [place] [address] 54115- 3282 Nov, Major depressive disorder, recurrent episode, moderate 296.32 [place] [address] [place] [id number] [place] [address] 58520- 7189 Nov, Constipation 564.00 ; Nausea & vomiting 787.01 and Abdominal pain 789.00 [place] [address] [place] [id number] [place] [address]- 7386 Nov, [facility] [id number] [place] [address], [place] [address]- 3596 October, [facility] [place] [facility] [address] [id number] [place] [address]- 5791 October, [facility] [address] [facility] [id number] [place] [address], [place] [address]- 6037 October, [facility] [place] [facility] [address] [facility] [id number] [place] [address], [place] [address]- 8283 October, [facility] [address] [place] [id number] [place] [address], [place] [address]- 4866 Sep, Dysuria 788.1 [facility] [address] [place] [id number] [place] [address]- 6076 Sep, [facility] [address] [place] [id number] [place] [address], [place] [address]- 0460 Sep, [facility] [address] [place] [id number] [place] [address]- 8830 Sep, [facility] [address] [id number] [place] [address], [place] [address]- 6609 Sep, [facility] [place] [facility] [id number] [place] [address]- 4473 Aug, [facility] [place] [facility] [address] [facility] [id number] [place] [address]- 9592 Aug, [facility] [place] [facility] [address] [facility] [id number] [place] [address]- 1932 Aug, [facility] [place] [facility] [address] [facility] [id number] [place] [address]- 6189 Aug, [facility] [place] [facility] [address] [facility] [id number] [place] [address]- 9408 Aug, [facility] [place] [facility] [id number] [place] [address]- 8766 Aug, [facility] [place] [facility] [address] [id number] [place] [address]- 7456 Aug, [facility] [place] [facility] [address] [id number] [place] [address]- 1896 Aug, [facility] [place] [facility] [address] [id number] [place] [address]- 7388 Aug, [facility] [place] [facility] [address] [id number] [place] [address]- 9207 Aug, [facility] [place] [facility] [address] [id number] [place] [address]- 3093 Jun, [facility] [place] [facility] [address] [id number] [place] [address]- 4173 Jun, [facility] [place] [facility] [address] [id number] [place] [address]- 0690 Jun, [facility] [place] [facility] [address] [id number] [place] [address]- 8873 Jun, [facility] [place] [facility] [address] [id number] [place] [address]- 5088 May, [facility] [place] [facility] [address] [id number] [place] [address]- 6554 May, [facility] [place] [facility] [address] [id number] [place] [address]- 2651 May, [facility] [place] [facility] [address] [id number] [place] [address]- 3236 May, [facility] [place] [facility] [address] [id number] [place] [address]- 3261 May, [facility] [place] [facility] [address] [id number] [place] [address]- 7727 May, [facility] [place] [facility] [address] [id number] [place] [address]- 3429 May, [facility] [place] [facility] [address] [id number] [place] [address]- 1384 May, [facility] [place] [facility] [address] [id number] [place] [address]- 8245 Mar, [facility] [place] [facility] [address] [id number] [place] [address]- 6173 Mar, [facility] [place] [facility] [address] [id number] [place] [address]- 8457 Mar, [facility] [place] [facility] [address] [id number] [place] [address]- 4120 Mar, [facility] [place] [facility] [address] [id number] [place] [address]- 0310 Mar, [facility] [place] [facility] [address] [id number] [place] [address]- 7213 Mar, [facility] [place] [facility] [address] [id number] [place] [address]- 5852 Mar, [facility] [place] [facility] [address] [id number] [place] [address]- 6200 Mar, [facility] [place] [facility] [address] [id number] [place] [address]- 9140 Mar, [facility] [place] [facility] [address] [id number] [place] [address]- 4535 Mar, [facility] [place] [facility] [address] [id number] [place] [address]- 6475 Mar, [facility] [place] [facility] [address] [id number] [place] [address]- 2462 Mar, [facility] [place] [facility] [address] [id number] [place] [address]- 7731 Feb, [facility] [place] [facility] [address] [id number] [place] [address]- 0946 Feb, [facility] [place] [facility] [address] [id number] [place] [address]- 9252 Feb, [facility] [place] [facility] [address] [id number] [place] [address]- 1961 Feb, [facility] [place] [facility] [address] [id number] [place] [address]- 3261 Feb, [facility] [place] [facility] [address] [id number] [place] [address]- 4209 Feb, [facility] [place] [facility] [address] [id number] [place] [address]- 1548 Jan, [facility] [place] [facility] [address] [id number] [place] [address]- 8959 Jan, [facility] [place] [facility] [address] [id number] [place] [address]- 0198 Jan, [facility] [place] [facility] [address] [id number] [place] [address]- 0522 Jan, [facility] [place] [facility] [address] [id number] [place] [address]- 6735 Jan, [facility] [place] [facility] [address] [id number] [place] [address]- 2887 Jan, [facility] [place] [facility] [address] [id number] [place] [address]- 2953 Jan, [facility] [place] [facility] [address] [id number] [place] [address]- 1625 Jan, [facility] [place] [facility] [address] [id number] [place] [address]- 9399 Dec, [facility] [place] [facility] [address] [id number] [place] [address]- 1047 Dec, [facility] [place] [facility] [address] [id number] [place] [address]- 6848 Dec, [facility] [place] [facility] [address] [id number] [place] [address]- 5677 Dec, [facility] [place] [facility] [address] [id number] [place] [address]- 7719 Dec, [facility] [place] [facility] [address] [id number] [place] [address]- 2624 Dec, [facility] [place] [facility] [address] [id number] [place] [address]- 7255 Dec, [facility] [place] [facility] [address] [id number] [place] [address]- 7618 Dec, [facility] [place] [facility] [address] [id number] [place] [address]- 3714 October, [facility] [place] [facility] [address] [id number] [place] [address]- 6891 October, [facility] [place] [facility] [address] [id number] [place] [address]- 5905 Sep, [facility] [place] [facility] [address] [id number] [place] [address]- 9962 Sep, [facility] [place] [facility] [address] [id number] [place] [address]- 7447 Sep, [facility] [place] [facility] [address] [id number] [place] [address]- 8581 Sep, [facility] [place] [facility] [address] [id number] [place] [address]- 0924 Sep, [facility] [place] [facility] [address] [id number] [place] [address]- 1839 Sep, [facility] [place] [facility] [address] [id number] [place] [address]- 4234 Sep, [facility] [place] [facility] [address] [id number] [place] [address]- 4075 Sep, [facility] [place] [facility] [address] [id number] [place] [address]- 4423 Sep, [facility] [place] [facility] [address] [id number] [place] [address]- 2975 Sep, [facility] [place] [facility] [address] [id number] [place] [address]- 5516 Sep, [facility] [place] [facility] [address] [id number] [place] [address]- 8612 Sep, [facility] [place] [facility] [address] [id number] [place] [address]- 4756 Aug, [facility] [place] [facility] [address] [id number] [place] [address]- 1569 Aug, [facility] [place] [facility] [address] [id number] [place] [address]- 3535 Aug, [facility] [place] [facility] [address] [id number] [place] [address]- 9388 Jun, [facility] [place] [facility] [address] [id number] [place] [address]- 6850 Jun, [facility] [place] [facility] [address] [id number] [place] [address] Jun, [facility] [place] [facility] [address] [id number] [place] [address] Jun, [facility] [place] [facility] [address] [id number] [place] [address] Jun, [facility] [place] [facility] [address] [id number] [place] [address] Jun, [facility] [place] [facility] [address] [id number] [place] [address] Jun, [facility] [place] [facility] [address] [id number] [place] [address] Jun, [facility] [place] [facility] [address] [id number] [place] [address] Jun, [facility] [place] [facility] [address] [id number] [place] [address] Jun, [facility] [place] [facility] [address] [id number] [place] [address] May, [facility] [place] [facility] [address] [id number] [place] [address] May, [facility] [place] [facility] [address] [id number] [place] [address] May, [facility] [place] [facility] [address] [id number] [place] [address]- [address] May, [facility] [place] [facility] [address] [id number] [place] [address] Apr, [facility] [place] [facility] [address] [id number] [place] [address] Apr, [facility] [place] [facility] [address] [id number] [place] [address] Apr, [facility] [place] [facility] [address] [id number] [place] [address] Apr, [facility] [place] [facility] [address] [id number], [place] [address] Apr, [facility] [place] [facility] [address] [id number] [place] [address] Apr, [facility] [place] [facility] [address] [id number], [place] [address] Apr, [facility] [place] [facility] [address] [id number], [place] [address] Apr, [facility] [place] [facility] [address] [id number], [place] [address] Mar, [facility] [place] [facility] [address] [id number] [place] [address] Mar, [facility] [place] [facility] [address] [id number], [place] [address] Mar, [facility] [place] [facility] [address] [id number], [place] [address] Mar, [facility] [place] [facility] [address] [id number] [place] [address] 04 Mar, 2013 [facility] [address] [id number] [place] [address] 23 Feb, 2013 [facility] [place] [facility] [address] [id number] [place] [address] 11 Feb, 2013 [facility] [address] [id number] [place] [address] 05 Feb, 2013 [facility] [place] [facility] [address] [id number] [place] [address] 05 Feb, 2013 [facility] [place] [facility] [address] [id number] [place] [address] Feb, [facility] [place] [facility] [address] [id number] [place] [address] Jan, [facility] [address] [id number] [place] [address] Jan, [facility] [place] [facility] [address] [id number] [place] [address] Nov, [facility] [place] [facility] [address] [id number] [place] [address] Nov, [facility] [place] [facility] [address] [id number] [place] [address] Nov, [facility] [place] [facility] [address] [id number] [place] [address] Nov, [facility] [place] [facility] [address] [id number] [place] [address] October, [facility] [place] [facility] [address] [id number] [place] [address] Sep, [facility] [place] [facility] [address] [id number] [place] [address] Aug, [facility] [place] [facility] [address] [id number] [place] [address] Aug, [facility] [place] [facility] [address] [id number] [place] [address] Aug, [facility] [place] [facility] [address] [id number] [place] [address] Aug, [facility] [place] [facility] [address] [id number] [place] [address] Jul, [facility] [place] [facility] [address] [id number] [place] [address] Jun, [facility] [place] [facility] [address] [id number] [place] [address] Jun, [facility] [place] [facility] [address] [id number] [place] [address] May, [facility] [place] [facility] [address] [id number] [place] [address] May, [facility] [place] [facility] [address] [facility] [id number] [place] [id number] Mar, [facility] [place] [facility] [address] [id number] [place] [address] Mar, [facility] [place] [facility] [address] [id number] [place] [address] Mar, [facility] [place] [facility] [address] [id number] [place] [address] Mar, [facility] [place] [facility] [address] [id number] [place] [address] Mar, [facility] [place] [facility] [address] [id number] [place] [address] Mar, [facility] [place] [facility] [address] [id number] [place] [address] Mar, [facility] [place] [facility] [address] [id number] [place] [address] Mar, [facility] [place] [facility] [address] [id number] [place] [address] Mar, [facility] [place] [facility] [address] [id number] [place] [address] 20 Mar, 2011 [facility] [place] [facility] [address] [id number] [place] [address] 20 Mar, 2011 [facility] [place] [facility] [address] [id number] [place] [address] 17 Mar, 2011 [facility] [place] [facility] [address] [id number] [place] [address]85 17 Mar, 2011 [facility] [place] [facility] [address] [id number] [place] [address] 15 Mar, 2012 [facility] [place] [facility] [address] [id number] [place] [address] 15 Mar, 2012 [facility] [place] [facility] [address] [id number] [place] [address]73 15 Mar, 2012 [facility] [place] [facility] [address] [id number], [place] [address] 15 Mar, 2012 [facility] [place] [facility] [address] [id number] [place] [address] 8974 Mar, [facility] [place] [facility] [address] [id number], [place] [address] Mar, [facility] [place] [facility] [address] [id number], [place] [address] 08 Mar, 2012 [facility] [place] [facility] [address] [id number], [place] [address] 08 Mar, 2012 [facility] [place] [facility] [address] [id number] [place] [address]561 Mar, [facility] [place] [facility] [address] [facility] [id number], [place] [address] Mar, [facility] [place] [facility] [address] [id number], [place] [address] Feb, [facility] [place] [facility] [address] [id number] [place] [address] 18 Sep, 2011 [facility] [place] [facility] [address] [id number] [place] [address] 17 Sep, 2011 [facility] [place] [facility] [address] [id number] [place] [address] 2546 14 Sep, 2011 [facility] [place] [facility] [address] [id number] [place] [address] 2546 14 Sep, 2011 [facility] [place] [facility] [address] [id number] [place] [address] 2546 12 Feb, 2011 [facility] [place] [facility] [address] [id number] [place] [address]206 10 Feb, 2011 [facility] [place] [facility] [address] [id number] [place] [address]106 31 Jan, 2012 [facility] [place] [facility] [address] [id number] [place] [address] 30 Jan, 2012 [facility] [place] [facility] [address] [id number] [place] [address] 22 Jan, 2012 [facility] [place] [facility] [address] [id number] [place] [address] 5693 20 Jan, 2012 [facility] [place] [facility] [address] [id number] [place] [address] 17 Jan, 2012 [facility] [place] [facility] [address] [id number] [place] [address] 2546 17 Jan, 2012 [facility] [place] [facility] [address] [id number] [place] [address] 2547 17 Jan, 2012 [facility] [place] [facility] [address] [id number] [place] [address] 2542 16 Jan, 2012 [facility] [place] [facility] [address] [id number] [place] [address]- [address]45 13 Jan, 2012 [facility] [place] [facility] [address] [id number] [place] [address] Jan, [facility] [place] [facility] [address] [id number] [place] [address]37 Dec, [facility] [place] [facility] [address] [id number] [place] [address] Dec, [facility] [place] [facility] [address] [id number] [place] [address] 49[address] Dec, [facility] [place] [facility] [address] [id number] [place] [address] Dec, [facility] [place] [facility] [address] [id number] [place] [address] 134[address] 18 Dec, 2011 [facility] [place] [facility] [address] [id number] [place] [address]- 2486 17 Dec, 2011 [facility] [place] [facility] [address] [id number] [place] [address]- 1166 16 Dec, 2011 [facility] [place] [facility] [address] [id number] [place] [address] 14 Dec, 2011 [facility] [place] [facility] [address] [id number] [place] [address]- [address]494 Dec, [facility] [place] [facility] [address] [id number] [place] [address]- [address] Dec, [facility] [place] [facility] [address] [id number] [place] [address] Dec, [facility] [place] [facility] [address] [id number] [place] [address] Nov, [facility] [place] [facility] [address] [id number] [place] [address]897 Nov, [facility] [place] [facility] [address] [id number] [place] [address] Nov, [facility] [place] [facility] [address] [id number] [place] [address] 34[address] Nov, [facility] [place] [facility] [address] [id number], [place] [address] Nov, [facility] [address] [facility] [id number] [place] [address] Nov, [facility] [address] [facility] [id number], [place] [address] Nov, [facility] [address] [facility] [id number], [place] [address] Nov, [facility] [address] [facility] [id number], [place] [address] Nov, [facility] [address] [facility] [id number], [place] [address] Nov, [facility] [address] [facility] [id number], [place] [address] October, IMMUNIZATIONS No Known Immunizations SOCIAL HISTORY Never Assessed REASON FOR VISIT Blood Pressure-reports low pressures, 99/63 with a pulse of [facility] Activity Details Follow Up 4 Weeks Reason:BH/BP VITAL SIGNS Height 65 in 2017-01-03 Weight 169.0 lbs 2017-01-03 Temperature 97.8 degrees Fahrenheit 2017-01-03 Heart Rate 66 bpm 2017-01-03 Respiratory Rate 18 2017-01-03 BMI 28.12 kg/m2 2017-01-03 Blood pressure systolic 102 mmHg 2017-01-03 Blood pressure diastolic 64 mmHg 2017-01-03 MEDICATIONS Medication Instructions Dosage Frequency Start Date End Date Duration Status Omeprazole 40 mg Orally Once a day 1 capsule 24h May, Active Potassium Chloride ER 10 MEQ Orally Twice a day 1 tablet 12h Active Dicyclomine HCl 20 mg Orally Four times a day 1 tablet 6h 30 Active Albuterol Sulfate 90 mcg/actuation inhale 2 puffs by inhalation route every 4-6 hours as neededPRNcough or wheezing Nov, Active Amlodipine Besylate 2.5 MG Orally Once a day 1 tablet 24h Jan, 30 day(s) Active Propranolol HCl 80 mg Orally Twice a day 1 tablet 12h 30 Active Amitriptyline HCl 10 mg Orally Once a day 1 tablet at hs 24h Jan, 30 day(s) Active RESULTS Name Result Date Reference Range TSH 2017-01-03 TSH 1.810 0.450-4.500 CBC 2017-01-03 WBC 5.8 3.4-10.8 RBC 4.43 3.77-5.28 Hemoglobin 12.9 11.1-15.9 Hematocrit 40.7 34.0-46.6 MCV 92 79-97 MCH 29.1 26.6-33.0 MCHC 31.7 31.5-35.7 RDW 16.8 12.3-15.4 Platelets 316 150-379 Neutrophils 50 Lymphs 43 Monocytes 7 Eos 0 Basos 0 Neutrophils (Absolute) 2.8 1.4-7.0 Lymphs (Absolute) 2.5 0.7-3.1 Monocytes(Absolute) 0.4 0.1-0.9 Eos (Absolute) 0.0 0.0-0.4 Baso (Absolute) 0.0 0.0-0.2 Immature Granulocytes 0 Immature Grans (Abs) 0.0 0.0-0.1 CMP 2017-01-03 Glucose, Serum 84 65-99 BUN 8 6-20 Creatinine, Serum 0.74 0.57-1.00 eGFR If NonAfricn Am 102 >59 eGFR If Africn Am 118 >59 BUN/Creatinine Ratio 11 9-23 Sodium, Serum 146 134-144 Potassium, Serum 4.2 3.5-5.2 Chloride, Serum 104 96-106 Carbon Dioxide, Total 26 18-29 Calcium, Serum 9.5 8.7-10.2 Protein, Total, Serum 6.9 6.0-8.5 Albumin, Serum 4.3 3.5-5.5 Globulin, Total 2.6 1.5-4.5 A/G Ratio 1.7 1.2-2.2 Bilirubin, Total 0.2 0.0-1.2 Alkaline Phosphatase, S 57 39-117 AST (SGOT) 13 0-40 ALT (SGPT) 16 0-32 PROCEDURES Procedure Date Ordered Result Body Site EKG, TRACING (IN-HOUSE) 2017-01-03 unremarkable ELECTROCARDIOGRAM, TRACING Jan 03, 2017 LAB NOT BILL[facility] Jan 03, 2017 VENIPUNCT, ROUTINE* Jan 03, 2017 INSTRUCTIONS MEDICATIONS ADMINISTERED No Known Medications [...] hysterectomy-total 2005 Surgical History lower GI [place] -not sure results Surgical History EGD Hospitalization [...]
--- OUTSIDE RECORDS SUMMARY | 2018-01-12 08:55 | XMS REPORT ---
Author DIONY Zuluaga Organization [employer] Address Unknown Phone Unavailable Care Team Providers Care Corporate Planning Manager Name Role Phone DIONY XIONG Unavailable Allergies, Adverse Reactions, Alerts Substance Reaction Event Type N.K.D.A. Info Not Available Non Drug Allergy Problems Problem Type Condition Code Onset Dates Condition Status Assessment Low back pain M54.5 Active Problem Unspecified backache 724.5 Active Problem Lumbago 724.2 Active Problem Generalized anxiety disorder F41.1 Active Problem Major depressive disorder, recurrent episode, moderate F33.1 Active Problem ADD (attention deficit disorder) without hyperactivity F90.0 Active Problem Irritable bowel syndrome 564.1 Active Problem Migraine, unspecified without mention of intractable migraine without mention of status migrainosus 346.90 Active Problem Cervical pain (neck) 723.1 Active Problem Asthma, unspecified, unspecified status 493.90 Active Medications Medication Code System Code Instructions Start Date End Date Status Dosage Dicyclomine HCl [facility] [address]-43 20 MG Orally Four times a day Mar 24, 2015 1 tablet Topamax [facility] [address]-51 200 MG Orally Twice a day 1 tablet Procedures Procedure Coding System Code Date Office Visit, Est Pt., Level 4 CPT-4 35288 Apr 07, 2015 Vital Signs Date/Time: Apr 07, 2015 Temperature 98.0 F Weight 179.3 lbs Height 65 in BMI 29.83 Index Blood Pressure Diastolic 82 mmHg Blood Pressure Systolic 124 mmHg Cardiac Monitoring Heart Rate 82 bpm Results No Known Results Summary Purpose [employer] Submission
--- OUTSIDE RECORDS SUMMARY | 2018-01-12 08:55 | XMS REPORT ---
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 Active 89680189 Problem Essential hypertension I10 Active 34209916 Problem Intractable chronic migraine without aura and with status migrainosus G43.711 Active 936428638 Problem Moderate persistent asthma with exacerbation J45.41 Active 524952781 Problem Seizure disorder G40.909 Active 001647955 Problem Other chronic pain G89.29 Active 67572838 Problem Moderate persistent asthma without complication J45.40 Active 501428622 Problem Primary insomnia F51.01 Active 1494399 Problem Abnormal glucose R73.09 Active 518553550 Problem Major depressive disorder, recurrent episode, moderate F33.1 Active 867336928 Problem Tremor, hereditary, 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 Active 944329070 Problem Elevated liver enzymes R74.8 Active 677039160 Problem Irritable bowel K58.9 Active 16570072 Problem Hyperlipidemia LDL goal <100 E78.5 Active 32666212 Problem Chronic migraine without aura with status migrainosus, not intractable G43.701 Active 805746986 ALLERGIES No Information ENCOUNTERS Encounter Location Date Diagnosis [facility] [address] [facility] [id number] [address] October, [facility] [address] [id number] [address] October, Right shoulder pain, unspecified chronicity M25.511 [facility] [address] [facility] [id number], [place] [address] Aug, Elevated liver enzymes R74.8 and Hyperlipidemia LDL goal < 100 E78.5 [facility] [id number] [place] [address] 18604- 2466 Aug, [facility] [id number] [place] [address] 00003- 2805 Jul, [facility] [id number] [place] [address] 31905- 7905 Jul, Intractable chronic migraine without aura and with status migrainosus G43.711 ; Fever, unspecified fever cause R50.9 and Elevated liver enzymes R74.8 [place] [id number] [place] [address] 90075- 6564 Jun, Difficulty urinating R39.198 and Moderate persistent asthma with exacerbation J45.41 [place] [id number] [place] [address] 16308- 4002 Jun, [facility] [id number] [place] [address] 15451- 2974 Jun, Moderate persistent asthma with exacerbation J45.41 [facility] [id number] [place] [address] 16452- 3156 May, Elevated liver enzymes R74.8 and Hyperlipidemia LDL goal < 100 E78.5 [place] [id number] [place] [address] 51703- 4588 May, Elevated lipids E78.5 [facility] [id number] [place] [address] 34132- 7605 Apr, Elevated liver enzymes R74.8 [facility] [id number] [place] [address] 95475- 7759 Apr, Elevated liver enzymes R74.8 [facility] [id number] [place] [address] 23545- 7185 Apr, Superior glenoid labrum lesion of right shoulder, subsequent encounter S43.431D [facility] [address] 92[address]- 3262 Apr, Hypokalemia E87.6 ; Major depressive disorder, recurrent episode, moderate F33.1 ; Other abnormalities of breathing R06.89 and Dyspnea, unspecified R06.00 [facility] [id number] [place] [address] 12785 -7400 Mar, Moderate persistent asthma without complication J45.40 [facility] [address] 78089- 9394 Mar, Impingement syndrome of right shoulder M75.41 [facility] [address] 06290- 1154 Jan, [place] [address] 84668- 6406 Jan, Chronic migraine without aura with status migrainosus, not intractable G43.701 ; Essential hypertension I10 ; Irritable bowel K58.9 ; Primary insomnia F51.01 and Hypokalemia E87.6 [facility] [address] 09369- 7261 Dec, [facility] [address] 20284- 9300 Dec, Pain in right shoulder M25.511 [facility] [address] 73232- 3049 Dec, Essential hypertension I10 [facility] [address] 14750- 7466 Dec, [facility] [id number] [place] [address] 35436- 3419 Nov, Essential hypertension I10 [place] [address] 91699- 5105 Nov, Pain in right shoulder M25.511 [facility] [address] 38728- 7075 Nov, Pain in right shoulder M25.511 [place] [id number] [place] [address] 66283- 7968 October, [place] [address] 16401- 4632 October, Pain in right shoulder M25.511 [place] [id number] [place] [address] 87457- 3962 Sep, Arm pain, right M79.601 [place] [id number] [place] [address] 71356- 8209 Sep, [place] [address] 19738- 6118 Sep, Abnormal glucose R73.09 and Elevated lipids E78.5 [place] [id number] [place] [address] 08956- 1725 Sep, Abnormal glucose R73.09 and Elevated lipids E78.5 [place] [id number] [place] [address] 78158- 6961 Aug, [place] [address] 84463- 3009 Aug, [place] [id number] [place] [address] 45241- 0039 Aug, [place] [id number] [place] [address] 76644- 7986 Aug, 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 ; Hypokalemia E87.6 ; Irritable bowel K58.9 ; Essential hypertension I10 ; Pain in right shoulder M25.511 ; Screening for lipid disorders Z13.220 and Seizure disorder G40.909 [place] [id number] [place] [address] 04800- 1272 28 Jul, 2016 Other chronic pain G89.29 and Pain in right shoulder M25.511 [place] [id number] [place] [address] 23906- 2370 14 Jul, 2016 Biceps muscle strain, right, subsequent encounter S46.111D [facility] [id number] [place] [address] 87102 -1862 08 Jul, 2016 Arm pain, right M79.601 [place] [id number] [place] [address] 76353- 5175 Jun, [place] [address] 22844- 7211 Jun, Acute non-recurrent frontal sinusitis J01.10 [place] [id number] [place] [address] 21731- 5090 May, Generalized abdominal pain R10.84 ; Urinary tract infection without hematuria, site unspecified N39.0 ; Hypokalemia E87.6 ; Essential hypertension I10 ; Screening for lipid disorders Z13.220 ; Seizure R56.9 and Low back pain M54.5 [place] [id number] [place] [address] 79488- 9670 Apr, [facility] [place] [id number] [place] [address] 67660 -7485 Feb, [place] [id number] [place] [address] 72498- 5360 Jan, [place] [id number] [place] [address] 49043- 1018 Dec, 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 ; Hypokalemia E87.6 ; Irritable bowel K58.9 and Nausea R11.0 [facility] [id number] [place] [address] 94485 -3613 Dec, Generalized abdominal pain R10.84 [place] [id number] [place] [address] 60567- 5496 24 Nov, 2015 [facility] [place] [id number] [place] [address] 14918 -0286 14 Aug, 2015 Acute bronchitis J20.9 [place] [id number] [place] [address] 02164- 6515 14 Aug, 2015 [place] [address] 55033- 8804 08 Aug, 2015 Low back pain M54.5 ; Hypokalemia E87.6 ; Chronic migraine without aura with status migrainosus, not intractable G43.701 ; Tremor, hereditary, 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 ; Irritable bowel K58.9 ; Essential hypertension I10 and Seizure R56.9 [place] [id number] [place] [address] 29961- 9230 07 Aug, 2015 [place] [address] 96434- 9809 09 Jul, 2015 [place] [address] 13719- 3951 03 Jul, 2015 Low back pain M54.5 ; Hypokalemia E87.6 ; Chronic migraine without aura with status migrainosus, not intractable G43.701 ; Tremor, hereditary, 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 ; Irritable bowel K58.9 ; Essential hypertension I10 and Seizure R56.9 [place] [id number] [place] [address] 04430- 5764 Jun, Hypokalemia E87.6 [place] [id number] [place] [address] 38491- 8167 Jun, ADD (attention deficit disorder) without hyperactivity F90.0 ; Generalized anxiety disorder F41.1 and Major depressive disorder, recurrent episode, moderate F33.1 [place] [id number] [place] [address] 16467- 2114 13 Jun, 2015 Low back pain M54.5 ; Hypokalemia E87.6 ; Chronic migraine without aura with status migrainosus, not intractable G43.701 ; Tremor, hereditary, 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 ; Irritable bowel K58.9 ; Essential hypertension I10 and Seizure R56.9 [place] [address] [place] [address]- 0145 Jun, [place] [id number] [place] [address] 70764- 8323 May, [place] [id number] [place] [address] 91752- 4635 May, Low back pain M54.5 ; Hypokalemia E87.6 ; Chronic migraine without aura with status migrainosus, not intractable G43.701 ; Tremor, hereditary, 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 ; Irritable bowel K58.9 ; Essential hypertension I10 ; Seizure R56.9 and Tinea capitis B35.0 [place] [id number] [place] [address] 95286- 3914 May, Low back pain M54.5 ; Hypokalemia E87.6 ; Chronic migraine without aura with status migrainosus, not intractable G43.701 ; Tremor, hereditary, 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 ; Irritable bowel K58.9 ; Essential hypertension I10 ; Seizure R56.9 ; Dysuria 788.1 and Otitis media, left H66.92 [place] [id number] [place] [address] 90414- 3541 May, Tooth pain K08.8 [place] [id number] [place] [address] 84340- 2288 May, [place] [id number] [place] [address] 60539- 1811 May, Low back pain M54.5 ; Hypokalemia E87.6 ; Chronic migraine without aura with status migrainosus, not intractable G43.701 ; Tremor, hereditary, 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 ; Irritable bowel K58.9 and Essential hypertension I10 [place] [id number] [place] [address] 48809- 7330 Apr, Low back pain M54.5 ; Hypokalemia E87.6 ; Chronic migraine without aura with status migrainosus, not intractable G43.701 ; Tremor, hereditary, 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 and Irritable bowel K58.9 [facility] [id number] [place] [address] 83496- 5722 Apr, Low back pain M54.5 [facility] [id number] [place] [address] 33068- 3398 Mar, [facility] [id number] [place] [address] 84188- 0534 Mar, Irritable bowel syndrome with diarrhea K58.0 [facility] [address] 26511- 7184 Mar, [facility] [id number] [place] [address] 80670- 4880 Feb, [facility] [id number] [place] [address] 42064- 2314 Feb, [facility] [id number] [place] [address] 97940- 5641 Feb, Irritable bowel syndrome 564.1 ; Lumbago 724.2 and Cervical pain (neck) 723.1 [place] [id number] [place] [address] 32108- 6967 Dec, Major depressive disorder, recurrent episode, moderate 296.32 and Generalized anxiety disorder 300.02 [place] [id number] [place] [address] 09677- 8002 Nov, [facility] [id number] [place] [address] 96987- 8220 Nov, Major depressive disorder, recurrent episode, moderate 296.32 [place] [id number] [place] [address] 33708- 0098 Nov, Constipation 564.00 ; Nausea & vomiting 787.01 and Abdominal pain 789.00 [facility] [id number] [place] [address] 33589- 4558 Nov, [facility] [id number] [place] [address]- 9648 October, [facility] [address] [id number] [place] [address]- 0553 October, [facility] [place] [facility] [address] [id number] [place] [address]- 3046 October, [facility] [place] [facility] [address] [facility] [id number] [place] [address]- 8656 October, [facility] [place] [facility] [address] [facility] [id number] [place] [address]- 3367 Sep, Dysuria 788.1 [facility] [place] [facility] [address] [facility] [id number] [place] [address], [place] [address]- 3456 Sep, [facility] [place] [facility] [address] [facility] [id number] [place] [address]- 5465 Sep, [facility] [place] [facility] [address] [place] [address]- 2308 Sep, [facility] [place] [facility] [address] [facility] [id number] [place] [address]- 4795 Sep, [facility] [place] [facility] [id number] [place] [address]- 5892 Aug, [facility] [place] [facility] [id number] [place] 0444 Aug, [facility] [place] [facility] [address] [facility] [id number] [place] [address]- 0367 Aug, [facility] [place] [facility] [address] [id number] [place] [address] 2548 Aug, [facility] [place] [facility] [address] [facility] [id number] [place] [address]- 1356 Aug, [facility] [place] [facility] [address] [facility] [id number] [place] [address] 2546 Aug, [facility] [place] [facility] [address] [facility] [id number] [place] [address]- 1931 Aug, [facility] [place] [facility] [address] [id number] [place] [address]- 8067 Aug, [facility] [place] [facility] [address] [id number] [place] [address]- 2439 Aug, [facility] [place] [facility] [address] [id number] [place] [address]- 7839 Aug, [facility] [place] [facility] [address] [id number] [place] [address]- 6070 Jun, [facility] [place] [facility] [address] [id number] [place] [address]- 7257 Jun, [facility] [place] [facility] [address] [id number] [place] [address]- 1528 Jun, [facility] [place] [facility] [address] [facility] [id number] [place] [address]- 9654 Jun, [facility] [place] [facility] [address] [id number] [place] [address]- 0049 May, [facility] [place] [facility] [address] [id number] [place] [address]- 1256 May, [facility] [place] [facility] [address] [id number] [place] [address]- 2644 May, [facility] [place] [facility] [address] [id number] [place] [address]- 5700 May, [facility] [place] [facility] [address] [id number], [place] [address]- 4914 May, [facility] [place] [facility] [address] [id number] [place] [address]- 6563 May, [facility] [place] [facility] [address] [id number] [place] [address]- 3588 May, [facility] [place] [facility] [address] [id number] [place] [address]- 3143 May, [facility] [place] [facility] [address] [id number] [place] [address]- 3113 30 Mar, 2014 [facility] [place] [facility] [address] [id number] [place] [address]- 9191 30 Mar, 2014 [facility] [place] [facility] [address] [id number] [place] [address]- 8188 Mar, [facility] [place] [facility] [address] [id number] [place] [address]- 3671 Mar, [facility] [place] [facility] [address] [id number] [place] [address]- 0916 Mar, [facility] [place] [facility] [address] [id number] [place] [address]- 9476 Mar, [facility] [place] [facility] [address] [id number] [place] [address]- 9196 Mar, [facility] [place] [facility] [address] [id number] [place] [address]- 6933 Mar, [facility] [place] [facility] [address] [id number] [place] [address]- 6441 Mar, [facility] [place] [facility] [address] [id number] [place] [address]- 2210 Mar, [facility] [place] [facility] [address] [id number] [place] [address]- 9223 Mar, [facility] [place] [facility] [address] [id number] [place] [address]- 1764 Mar, [facility] [place] [facility] [address] [id number] [place] [address]- 0678 24 Feb, 2014 [facility] [place] [facility] [address] [id number] [place] [address]- 6651 24 Feb, 2014 [facility] [place] [facility] [address] [id number] [place] [address]- 5559 Feb, [facility] [place] [facility] [address] [id number] [place] [address]- 9109 Feb, [facility] [place] [facility] [address] [id number] [place] [address]- 3759 Feb, [facility] [place] [facility] [address] [id number] [place] [address]- 7328 Feb, [facility] [place] [facility] [address] [id number] [place] [address]- 7952 Jan, [facility] [place] [facility] [address] [id number] [place] [address]- 7129 Jan, [facility] [place] [facility] [address] [id number] [place] [address]- 4426 Jan, [facility] [place] [facility] [address] [id number] [place] [address]- 3157 Jan, [facility] [place] [facility] [address] [id number] [place] [address]- 7826 Jan, [facility] [place] [facility] [address] [id number] [place] [address]- 8444 Jan, [facility] [place] [facility] [address] [id number] [place] [address]- 6872 Jan, [facility] [place] [facility] [address] [id number] [place] [address]- 9202 Jan, [facility] [place] [facility] [address] [id number] [place] [address]- 6875 Dec, [facility] [place] [facility] [address] [id number] [place] [address]- 6532 Dec, [facility] [place] [facility] [address] [id number] [place] [address]- 9184 Dec, [facility] [place] [facility] [address] [id number] [place] [address]- 9297 Dec, [facility] [place] [facility] [address] [id number] [place] [address]- 4446 Dec, [facility] [place] [facility] [address] [id number] [place] [address]- 0210 Dec, [facility] [place] [facility] [address] [id number] [place] [address]- 2525 Dec, [facility] [place] [facility] [address] [id number] [place] [address]- 2823 Dec, [facility] [place] [facility] [address] [id number] [place] [address]- 6184 October, [facility] [place] [facility] [address] [id number] [place] [address]- 4822 October, [facility] [place] [facility] [address] [id number] [place] [address]- 9087 Sep, [facility] [place] [facility] [address] [id number] [place] [address]- 2489 Sep, [facility] [place] [facility] [address] [id number] [place] [address]- 5329 Sep, [facility] [place] [facility] [address] [id number] [place] [address]- 7829 Sep, [facility] [place] [facility] [address] [id number] [place] [address]- 3289 Sep, [facility] [place] [facility] [address] [id number] [place] [address]- 3477 Sep, [facility] [place] [facility] [address] [id number] [place] [address]- 7140 Sep, [facility] [place] [facility] [address] [id number] [place] [address]- 0785 Sep, [facility] [place] [facility] [address] [id number] [place] [address]- 8815 Sep, [facility] [place] [facility] [address] [id number] [place] [address]- 8832 Sep, [facility] [place] [facility] [address] [id number] [place] [address]- 9448 Sep, [facility] [place] [facility] [address] [id number] [place] [address] 2546 Sep, [facility] [address] [id number] [place] [address]- 6634 Aug, [facility] [place] [facility] [address] [id number] [place] [address] 2546 Aug, [facility] [address] [id number] [place] [address]- 6357 Aug, [facility] [address] [id number] [place] [address]- 2675 Jun, [facility] [address] [id number] [place] [address]- 2042 Jun, [facility] [address] [id number] [place] [address]- 4205 Jun, [facility] [address] [id number] [place] [address] Jun, [facility] [address] [id number] [place] [address] Jun, [facility] [address] [id number] [place] [address] Jun, [facility] [address] [id number] [place] [address] Jun, [facility] [address] [id number] [place] [address] Jun, [facility] [address] [id number] [place] [address] Jun, [facility] [place] [facility] [address] [id number] [place] [address] Jun, [facility] [place] [facility] [address] [id number] [place] [address] May, [facility] [place] [facility] [address] [id number] [place] [address] May, [facility] [place] [facility] [address] [id number] [place] [address] May, [facility] [place] [facility] [address] [id number] [place] [address] May, [facility] [place] [facility] [address] [id number] [place] [address] Apr, [facility] [place] [facility] [address] [id number] [place] [address] Apr, [facility] [place] [facility] [address] [id number] [place] [address] Apr, [facility] [place] [facility] [address] [id number] [place] [address] Apr, [facility] [place] [facility] [address] [id number] [place] [address]- [address] Apr, [facility] [place] [facility] [address] [id number], [place] [address] Apr, [facility] [place] [facility] [address] [id number] [place] [address]- [address] Apr, [facility] [place] [facility] [address] [id number], [place] [address] Apr, [facility] [place] [facility] [address] [id number], [place] [address] Mar, [facility] [place] [facility] [address] [id number], [place] [address] Mar, [facility] [place] [facility] [address] [id number], [place] [address] Mar, [facility] [place] [facility] [address] [id number], [place] [address] Mar, [facility] [place] [facility] [address] [id number] [address] Mar, [facility] [place] [facility] [address] [id number], [place] [address] 23 Feb, 2013 [facility] [address] [id number] [place] [address] 11 Feb, 2013 [facility] [place] [facility] [address] [id number] [place] [address] 05 Feb, 2013 [facility] [address] [id number] [place] [address]- [address] 05 Feb, 2013 [facility] [place] [facility] [address] [id number] [place] [address] 04 Feb, 2013 [facility] [address] [id number] [place] [address] Jan, [facility] [place] [facility] [address] [id number] [place] [address] Jan, [facility] [address] [id number] [place] [address] Nov, [facility] [place] [facility] [address] [id number] [place] [address] Nov, [facility] [place] [facility] [address] [address] [id number] [place] [address] Nov, [facility] [place] [facility] [address] [facility] [id number] [place] [address] Nov, [facility] [address] [id number] [place] [address] October, [facility] [place] [facility] [address] [id number] [place] [address] Sep, [facility] [place] [facility] [address] [id number] [place] [address] Aug, [facility] [place] [facility] [address] [id number] [place] [address] 26 Aug, 2012 [facility] [place] [facility] [address] [id number] [place] [address] 16 Aug, 2012 [facility] [place] [facility] [address] [id number] [place] [address] Aug, [facility] [place] [facility] [address] [id number] [place] [address] Jul, [facility] [place] [facility] [address] [id number] [place] [address] Jun, [facility] [place] [facility] [address] [id number] [place] [address] Jun, [facility] [place] [facility] [address] [id number] [place] [address] May, [facility] [place] [facility] [address] [id number] [place] [address] May, [facility] [place] [facility] [address] [id number] [place] [id number] Mar, [facility] [place] [facility] [address] [id number] [place] [address] Mar, [facility] [place] [facility] [address] [id number] [place] [address] Mar, [facility] [place] [facility] [address] [id number] [place] [address] Mar, [facility] [place] [facility] [address] [id number] [place] [address] Mar, [facility] [place] [facility] [address] [id number] [place] [address] Mar, [facility] [place] [facility] [address] [id number] [place] [address] Mar, [facility] [place] [facility] [address] [id number] [place] [address] Mar, [facility] [place] [facility] [address] [id number] [place] [address] Mar, [facility] [place] [facility] [address] [id number] [place] [address] 20 Mar, 2012 [facility] [place] [facility] [address] [id number] [place] [address] 94[address] 20 Mar, 2011 [facility] [place] [facility] [address] [id number] [place] [address] 6584 17 Mar, 2012 [facility] [place] [facility] [address] [id number] [place] [address]32 17 Mar, 2012 [facility] [place] [facility] [address] [id number] [place] [address]60 15 Mar, 2012 [facility] [place] [facility] [address] [id number] [place] [address] 15 Mar, 2012 [facility] [place] [facility] [address] [id number] [place] [address] 15 Mar, 2012 [facility] [place] [facility] [address] [id number] [place] [address] 4419 15 Mar, 2012 [facility] [place] [facility] [address] [id number], [place] [address] Mar, [facility] [place] [facility] [address] [id number] [place] [address] Mar, [facility] [place] [facility] [address] [id number], [place] [address] Mar, [facility] [place] [facility] [address] [id number], [place] [address] Mar, [facility] [place] [facility] [address] [id number], [place] [address] Mar, [facility] [place] [facility] [address] [id number] [place] [address] Mar, [facility] [place] [facility] [address] [id number], [place] [address] 19 Feb, 2012 [facility] [place] [facility] [address] [id number], [place] [address] 18 Feb, 2012 [facility] [place] [facility] [address] [id number] [place] [address]76 17 Feb, 2011 [facility] [place] [facility] [address] [id number] [place] [address]86 14 Feb, 2011 [facility] [place] [facility] [address] [id number] [place] [address] 2546 14 Feb, 2012 [facility] [place] [facility] [address] [id number] [place] [address] 12 Feb, 2011 [facility] [place] [facility] [address] [id number] [place] [address] 9764 10 Feb, 2012 [facility] [place] [facility] [address] [id number] [place] [address] 31 Jan, 2012 [facility] [place] [facility] [address] [id number] [place] [address]- 9465 30 Jan, 2012 [facility] [place] [facility] [address] [id number] [place] [address] 22 Jan, 2012 [facility] [place] [facility] [address] [id number] [place] [address] 20 Jan, 2012 [facility] [place] [facility] [address] [id number] [place] [address] 3300 17 Jan, 2012 [facility] [place] [facility] [address] [id number] [place] [address] 6388 17 Jan, 2012 [facility] [place] [facility] [address] [id number] [place] [address] 7[address] 17 Jan, 2012 [facility] [place] [facility] [address] [id number] [place] [address] 2547 16 Jan, 2012 [facility] [place] [facility] [address] [id number] [place] [address]- 5104 13 Jan, 2012 [facility] [place] [facility] [address] [id number] [place] [address]- 1776 07 Jan, 2012 [facility] [place] [facility] [address] [id number] [place] [address]449 26 Dec, 2011 [facility] [place] [facility] [address] [id number] [place] [address] 65[address] 24 Dec, 2011 [facility] [place] [facility] [address] [id number] [place] [address] 23 Dec, 2011 [facility] [place] [facility] [address] [id number] [place] [address] 1706 19 Dec, 2011 [facility] [place] [facility] [address] [id number] [place] [address] 9729 18 Dec, 2011 [facility] [place] [facility] [address] [id number] [place] [address] 17 Dec, 2011 [facility] [place] [facility] [address] [id number] [place] [address] 0096 16 Dec, 2011 [facility] [place] [facility] [address] [id number] [place] [address] 4[address] 14 Dec, 2011 [facility] [place] [facility] [address] [id number] [place] [address] Dec, [facility] [place] [facility] [address] [id number] [place] [address] 2445 Dec, [facility] [place] [facility] [address] [id number] [place] [address] 5816 Dec, [facility] [place] [facility] [address] [id number] [place] [address] Nov, [facility] [place] [facility] [address] [id number] [place] [address] 2489 Nov, [facility] [place] [facility] [address] [id number] [place] [address]- [address]156 Nov, [facility] [place] [facility] [address] [id number] [place] [address] 9273 Nov, [facility] [place] [facility] [address] [id number] [place] [address] 4973 Nov, [facility] [place] [facility] [address] [id number], [place] [address] Nov, [facility] [address] [facility] [id number] [place] [address] Nov, [facility] [address] [facility] [id number], [place] [address] Nov, [facility] [address] [facility] [id number], [place] [address] Nov, [facility] [address] [facility] [id number], [place] [address] Nov, [facility] [address] [facility] [id number], [place] [address] October, IMMUNIZATIONS No Known Immunizations SOCIAL HISTORY Never Assessed REASON FOR VISIT 6 wk f/u rt shoulder. Consult Ricky Friend;Neo RT(R) PLAN OF CARE Activity Details Follow Up surgical referral Reason: VITAL SIGNS Height 65 in 2017-05-02 Blood pressure systolic 128 mmHg 2017-05-02 Blood pressure diastolic 88 mmHg 2017-05-02 MEDICATIONS Unknown Medications RESULTS No Results PROCEDURES Procedure Date Ordered Result Body Site DRAIN/INJECT, JOINT/BURSA May 02, 2017 DEPO MEDROL 80 MG/ML May 02, 2017 INSTRUCTIONS MEDICATIONS ADMINISTERED No [...]
--- OUTSIDE RECORDS SUMMARY | 2018-01-12 08:55 | XMS REPORT ---
Author CHRISTIE Reeves Organization [employer] Address Unknown Phone Unavailable Care Team Providers Care [employer] Manager Name Role Phone CHRISTIE PLASCENCIA Unavailable Allergies No Known Allergies Problems Problem Type Condition Code Onset Dates Condition Status Problem Generalized anxiety disorder F41.1 Active Problem Major depressive disorder, recurrent episode, moderate F33.1 Active Problem Low back pain M54.5 Active Problem Hypokalemia E87.6 Active Problem Essential hypertension I10 Active Problem Irritable bowel K58.9 Active Problem ADD (attention deficit disorder) without hyperactivity F90.0 Active Problem Chronic migraine without aura with status migrainosus, not intractable G43.701 Active Problem Tremor, hereditary, 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 Active Medications No Known Medications Results No Known Results Summary Purpose [employer] Submission
--- OUTSIDE RECORDS SUMMARY | 2018-01-12 08:55 | XMS REPORT ---
Author Author BARBARA KRAIG [facility] Address [address] [place] [address] Care Team Providers Care [employer] Name Role Phone KARLENE JIMENEZY Unavailable PROBLEMS Type Condition ICD9-CM Code SPS56-YQ Code Onset Dates Condition Status SNOMED Code Problem Essential hypertension I10 Active 28877776 Problem Other chronic pain G89.29 Active 48695771 Problem 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 Active 04831243 Problem Other chronic pain G89.29 Active 21847904 Problem Intractable chronic migraine without aura and with status migrainosus G43.711 Active 000182674 Problem Primary insomnia F51.01 Active 1244047 Problem Seizure disorder G40.909 Active 001817846 Problem Moderate persistent asthma with exacerbation J45.41 Active 091060683 Problem Moderate persistent asthma without complication J45.40 Active 068581877 Problem Elevated liver enzymes R74.8 Active 076615144 Problem Hyperlipidemia LDL goal <100 E78.5 Active 02338384 Problem Hypokalemia E87.6 Active 73464058 Problem Tremor, hereditary, 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 Active 435515347 Problem Abnormal glucose R73.09 Active 924440083 Problem Irritable bowel K58.9 Active 98864763 Problem Major depressive disorder, recurrent episode, moderate F33.1 Active 564132558 Problem Chronic migraine without aura with status migrainosus, not intractable G43.701 Active 924415122 ALLERGIES No Information ENCOUNTERS Encounter Location Date Diagnosis [facility] [address] [address] Dec, [facility] [id number] [place] [address] 82076- 1194 Nov, Other chronic pain G89.29 and Pain in right shoulder M25.511 [facility] [id number] [place] [address] 15794- 3936 October, [facility] [address], [place] [address] October, Right shoulder pain, unspecified chronicity M25.511 [facility] [id number] [place] [address] 28553- 7391 Aug, Elevated liver enzymes R74.8 and Hyperlipidemia LDL goal < [address] [facility] [id number] [place] [address] 37059- 1432 Aug, [facility] [id number] [place] [address] 27960- 7448 Jul, [facility] [id number] [place] [address] 99974- 1013 Jul, Intractable chronic migraine without aura and with status migrainosus G43.711 ; Fever, unspecified fever cause R50.9 and Elevated liver enzymes R74.8 [facility] [id number] [place] [address] 19677- 1532 Jun, Difficulty urinating R39.198 and Moderate persistent asthma with exacerbation J45.41 [facility] [id number] [place] [address] 36687- 9614 Jun, [facility] [id number] [place] [address] 73658- 3483 Jun, Moderate persistent asthma with exacerbation J45.41 [facility] [id number] [place] [address] 11192- 1759 May, Elevated liver enzymes R74.8 and Hyperlipidemia LDL goal < [address] [facility] [id number] [place] [address] 40841- 8637 May, Elevated lipids E78.5 [facility] [id number] [place] [address] 07379- 9524 Apr, Elevated liver enzymes R74.8 [facility] [address] 38970- 6056 Apr, Elevated liver enzymes R74.8 [place] [address] 51106- 5878 Apr, Superior glenoid labrum lesion of right shoulder, subsequent encounter S43.431D [place] [address] 17703- 4484 Apr, Hypokalemia E87.6 ; Major depressive disorder, recurrent episode, moderate F33.1 ; Other abnormalities of breathing R06.89 and Dyspnea, unspecified R06.00 [facility] [address] 59662 -9739 Mar, Moderate persistent asthma without complication J45.40 [place] [address] 64841- 7522 Mar, Impingement syndrome of right shoulder M75.41 [place] [address] 36019- 8729 Jan, [place] [address] 73216- 1140 Jan, Chronic migraine without aura with status migrainosus, not intractable G43.701 ; Essential hypertension I10 ; Irritable bowel K58.9 ; Primary insomnia F51.01 and Hypokalemia E87.6 [place] [address] 18053- 5023 Dec, [place] [address] 74069- 3316 Dec, Pain in right shoulder M25.511 [place] [address] 00513- 0742 Dec, Essential hypertension I10 [place] [address] 54506- 7816 Dec, [place] [address] 42135- 4286 Nov, Essential hypertension I10 [facility] [id number] [place] [address] 54329- 3746 14 Nov, 2016 Pain in right shoulder M25.511 [facility] [id number] [place] [address] 70874- 9047 13 Nov, 2016 Pain in right shoulder M25.511 [facility] [id number] [place] [address] 19209- 1371 October, [facility] [id number] [place] [address] 18004- 2985 October, Pain in right shoulder M25.511 [facility] [id number] [place] [address] 37561- 0498 Sep, Arm pain, right M79.601 [place] [id number] [place] [address] 92739- 9238 Sep, [facility] [id number] [place] [address] 94479- 8068 Sep, Abnormal glucose R73.09 and Elevated lipids E78.5 [place] [id number] [place] [address] 90285- 9088 Sep, Abnormal glucose R73.09 and Elevated lipids E78.5 [place] [id number] [place] [address] 42908- 5485 Aug, [facility] [id number] [place] [address] 86071- 0359 Aug, [facility] [id number] [place] [address] 99386- 1836 Aug, [facility] [id number] [place] [address] 84112- 7092 Aug, 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 ; Hypokalemia E87.6 ; Irritable bowel K58.9 ; Essential hypertension I10 ; Pain in right shoulder M25.511 ; Seizure disorder G40.909 and Screening for lipid disorders Z13.220 [place] [id number] [place] [address] 64564- 3719 28 Jul, 2016 Other chronic pain G89.29 and Pain in right shoulder M25.511 [place] [id number] [place] [address] 09177- 2624 14 Jul, 2016 Biceps muscle strain, right, subsequent encounter S46.111D [facility] [place] [address] 80200 -7654 08 Jul, 2016 Arm pain, right M79.601 [place] [address] 32809- 8744 30 Jun, 2016 [place] [address] 09342- 9048 13 Jun, 2016 Acute non-recurrent frontal sinusitis J01.10 [place] [address] 07670- 6902 14 May, 2016 Generalized abdominal pain R10.84 ; Urinary tract infection without hematuria, site unspecified N39.0 ; Hypokalemia E87.6 ; Essential hypertension I10 ; Screening for lipid disorders Z13.220 ; Seizure R56.9 and Low back pain M54.5 [place] [id number] [place] [address] 75885- 8735 Apr, [facility] [place] [id number] [place] [address] 11561 -1956 Feb, [place] [id number] [place] [address] 27838- 2643 Jan, [place] [address] 35252- 7826 Dec, 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 ; Hypokalemia E87.6 ; Irritable bowel K58.9 and Nausea R11.0 [facility] [place] [address] 82723 -1567 Dec, Generalized abdominal pain R10.84 [facility] [id number] [place] [address] 30101- 5459 Nov, [facility] [id number] [place] [address] 42272 -1755 Aug, Acute bronchitis J20.9 [place] [id number] [place] [address] 86844- 6045 Aug, [place] [id number] [place] [address] 70834- 9390 08 Aug, 2015 Low back pain M54.5 ; Hypokalemia E87.6 ; Chronic migraine without aura with status migrainosus, not intractable G43.701 ; Tremor, hereditary, 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 ; Irritable bowel K58.9 ; Essential hypertension I10 and Seizure R56.9 [place] [id number] [place] [address] 50534- 9034 Aug, [facility] [id number] [place] [address] 44053- 4056 09 Jul, 2015 [place] [id number] [place] [address] 99837- 5799 03 Jul, 2015 Low back pain M54.5 ; Hypokalemia E87.6 ; Chronic migraine without aura with status migrainosus, not intractable G43.701 ; Tremor, hereditary, 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 ; Irritable bowel K58.9 ; Essential hypertension I10 and Seizure R56.9 [place] [address] [place] [address] 67007- 4524 Jun, Hypokalemia E87.6 [place] [id number] [place] [address] 49127- 4089 Jun, ADD (attention deficit disorder) without hyperactivity F90.0 ; Generalized anxiety disorder F41.1 and Major depressive disorder, recurrent episode, moderate F33.1 [place] [id number] [place] [address] 90552- 6164 13 Jun, 2015 Low back pain M54.5 ; Hypokalemia E87.6 ; Chronic migraine without aura with status migrainosus, not intractable G43.701 ; Tremor, hereditary, 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 ; Irritable bowel K58.9 ; Essential hypertension I10 and Seizure R56.9 [place] [id number] [place] [address] 17442- 1655 Jun, [place] [address] 80375- 8769 May, [place] [address] 94837- 4774 May, Low back pain M54.5 ; Hypokalemia E87.6 ; Chronic migraine without aura with status migrainosus, not intractable G43.701 ; Tremor, hereditary, 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 ; Irritable bowel K58.9 ; Essential hypertension I10 ; Seizure R56.9 and Tinea capitis B35.0 [place] [id number] [place] [address] 52183- 3146 May, Low back pain M54.5 ; Hypokalemia E87.6 ; Chronic migraine without aura with status migrainosus, not intractable G43.701 ; Tremor, hereditary, 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 ; Irritable bowel K58.9 ; Essential hypertension I10 ; Seizure R56.9 ; Otitis media, left H66.92 and Dysuria 788.1 [place] [id number] [place] [address] 57749- 2999 May, Tooth pain K08.8 [place] [address] 48278- 1027 May, [place] [address] 54639- 2634 May, Low back pain M54.5 ; Hypokalemia E87.6 ; Chronic migraine without aura with status migrainosus, not intractable G43.701 ; Tremor, hereditary, 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 ; Irritable bowel K58.9 and Essential hypertension I10 [place] [id number] [place] [address] 27322- 5725 Apr, Low back pain M54.5 ; Hypokalemia E87.6 ; Chronic migraine without aura with status migrainosus, not intractable G43.701 ; Tremor, hereditary, 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 and Irritable bowel K58.9 [facility] [id number] [place] [address] 68245- 7261 Apr, Low back pain M54.5 [place] [id number] [place] [address] 84815- 7388 Mar, [facility] [id number] [place] [address] 82002- 6775 Mar, Irritable bowel syndrome with diarrhea K58.0 [place] [address] 93085- 0680 Mar, [facility] [id number] [place] [address] 27769- 6008 Feb, [place] [id number] [place] [address] 39856- 8576 08 Feb, 2015 [facility] [id number] [place] [address] 45089- 0946 Feb, Irritable bowel syndrome 564.1 ; Lumbago 724.2 and Cervical pain (neck) 723.1 [facility] [id number] [place] [address] 97278- 5675 Dec, Major depressive disorder, recurrent episode, moderate 296.32 and Generalized anxiety disorder 300.02 [facility] [id number] [place] [address] 12435- 6483 Nov, [facility] [id number] [place] [address] 22864- 4657 Nov, Major depressive disorder, recurrent episode, moderate 296.32 [facility] [address] [address]- 3148 08 Nov, 2014 Constipation 564.00 ; Nausea & vomiting 787.01 and Abdominal pain 789.00 [facility] [address], [place] [address]- 1256 Nov, [facility] [id number] [place] [address] 04870- 6403 October, [facility] [id number] [place] [address] 09792- 6284 October, [facility] [id number] [place] [address] 59108- 7845 October, [facility] [id number] [place] [address] 11759- 3086 October, [facility] [id number] [place] [address] 02815- 6101 Sep, Dysuria 788.1 [facility] [id number] [place] [address] 44140- 5715 Sep, [facility] [id number] [address]- 1275 Sep, [facility] [address], [place] [address]- 1271 Sep, [facility] [address], [place] [address]- 7905 Sep, [facility] [address], [place] [address]- 5502 Aug, [facility] [id number] [place] [address] 86490- 8556 Aug, [facility] [address], [place] [address]- 7506 Aug, [facility] [address], [place] [address]- 7583 Aug, [facility] [place] [facility] [address] [id number] [place] [address]- 2981 Aug, [facility] [place] [facility] [address] [id number] [place] [address]- 1381 Aug, [facility] [place] [facility] [address] [id number] [place] [address]- 7585 Aug, [facility] [place] [facility] [address] [id number] [place] [address]- 6522 Aug, [facility] [place] [facility] [address] [id number] [place] [address]- 5477 Aug, [facility] [place] [facility] [address] [id number] [place] [address]- 2325 Aug, [facility] [place] [facility] [address] [id number] [place] [address]- 1352 Jun, [facility] [place] [facility] [address] [id number] [place] [address]- 9851 Jun, [facility] [place] [facility] [address] [id number] [place] [address]- 9176 Jun, [facility] [place] [facility] [address] [id number] [place] [address]- 8847 Jun, [facility] [place] [facility] [address] [id number] [place] [address]- 0853 May, [facility] [place] [facility] [address] [id number] [place] [address]- 4836 May, [facility] [place] [facility] [address] [id number] [place] [address]- 3682 May, [facility] [place] [facility] [address] [id number] [place] [address]- 9769 May, [facility] [place] [facility] [address] [id number] [place] [address]- 5574 May, [facility] [place] [facility] [address] [id number] [place] [address]- 4019 May, [facility] [place] [facility] [address] [id number] [place] [address]- 1263 May, [facility] [place] [facility] [address] [id number] [place] [address]- 5190 May, [facility] [place] [facility] [address] [id number] [place] [address]- 9674 Mar, [facility] [place] [facility] [address] [id number] [place] [address]- 5003 Mar, [facility] [place] [facility] [address] [id number] [place] [address]- 8126 Mar, [facility] [place] [facility] [address] [id number] [place] [address]- 4930 Mar, [facility] [place] [facility] [address] [id number] [place] [address]- 8141 Mar, [facility] [place] [facility] [address] [id number] [place] [address]- 4306 Mar, [facility] [place] [facility] [address] [id number] [place] [address]- 8901 Mar, [facility] [place] [facility] [address] [facility] [id number] [place] [address]- 2552 Mar, [facility] [place] [facility] [address] [id number] [place] [address]- 6406 Mar, [facility] [place] [facility] [address] [id number] [place] [address]- 4137 Mar, [facility] [place] [facility] [address] [id number] [place] [address]- 1169 Mar, [facility] [place] [facility] [address] [id number] [place] [address]- 3320 Mar, [facility] [place] [facility] [address] [id number] [place] [address]- 3964 24 Feb, 2014 [facility] [place] [facility] [address] [id number] [place] [address]- 1545 Feb, [facility] [place] [facility] [address] [id number] [place] [address]- 8679 Feb, [facility] [place] [facility] [address] [id number] [place] [address]- 5467 Feb, [facility] [place] [facility] [address] [id number] [place] [address]- 6999 Feb, [facility] [place] [facility] [address] [id number] [place] [address]- 8375 Feb, [facility] [place] [facility] [address] [id number] [place] [address]- 0413 Jan, [facility] [place] [facility] [address] [id number] [place] [address]- 0138 Jan, [facility] [place] [facility] [address] [id number] [place] [address]- 8587 Jan, [facility] [place] [facility] [address] [id number] [place] [address]- 0643 Jan, [facility] [place] [facility] [address] [id number] [place] [address]- 0317 Jan, [facility] [place] [facility] [address] [id number] [place] [address]- 9261 Jan, [facility] [place] [facility] [address] [id number] [place] [address]- 8040 Jan, [facility] [place] [facility] [address] [id number] [place] [address]- 6519 Jan, [facility] [place] [facility] [address] [id number] [place] [address]- 2164 Dec, [facility] [place] [facility] [address] [id number] [place] [address]- 5815 Dec, [facility] [place] [facility] [address] [id number] [place] [address]- 8535 Dec, [facility] [place] [facility] [address] [id number] [place] [address]- 9719 Dec, [facility] [place] [facility] [address] [id number] [place] [address]- 8580 Dec, [facility] [place] [facility] [address] [id number] [place] [address]- 7862 Dec, [facility] [place] [facility] [address] [id number] [place] [address]- 4130 Dec, [facility] [place] [facility] [address] [id number] [place] [address]- 0341 Dec, [facility] [place] [facility] [address] [id number] [place] [address]- 3181 October, [facility] [place] [facility] [address] [id number] [place] [address]- 0635 October, [facility] [place] [facility] [address] [id number] [place] [address]- 2162 Sep, [facility] [place] [facility] [address] [id number] [place] [address]- 8057 Sep, [facility] [place] [facility] [address] [id number] [place] [address]- 0109 Sep, [facility] [place] [facility] [address] [id number] [place] [address]- 8771 Sep, [facility] [place] [facility] [address] [id number] [place] [address]- 9325 Sep, [facility] [place] [facility] [address] [id number] [place] [address]- 7285 Sep, [facility] [place] [facility] [address] [id number] [place] [address]- 9505 Sep, [facility] [place] [facility] [address] [id number] [place] [address]- 4748 Sep, [facility] [place] [facility] [address] [id number] [place] [address] Sep, [facility] [address] [id number] [place] [address] Sep, [facility] [place] [facility] [address] [id number] [place] [address] Sep, [facility] [address] [id number] [place] [address] Sep, [facility] [place] [facility] [address] [id number] [place] [address] Aug, [facility] [address] [id number] [place] [address] Aug, [facility] [place] [facility] [address] [id number] [place] [address] Aug, [facility] [address] [id number] [place] [address] Jun, [facility] [address] [id number] [place] [address] Jun, [facility] [place] [facility] [address] [id number] [place] [address] Jun, [facility] [address] [id number] [place] [address] Jun, [facility] [place] [facility] [address] [id number] [place] [address] Jun, [facility] [place] [facility] [address] [id number] [place] [address] Jun, [facility] [place] [facility] [address] [id number] [place] [address] Jun, [facility] [place] [facility] [address] [id number] [place] [address] Jun, [facility] [place] [facility] [address] [id number] [place] [address] Jun, [facility] [place] [facility] [address] [id number] [place] [address] Jun, [facility] [place] [facility] [address] [id number] [place] [address] May, [facility] [place] [facility] [address] [id number] [place] [address] May, [facility] [place] [facility] [address] [id number] [place] [address]- [address] May, [facility] [place] [facility] [address] [id number] [place] [address] May, [facility] [place] [facility] [address] [id number] [place] [address] Apr, [facility] [place] [facility] [address] [id number] [place] [address]- [address] Apr, [facility] [place] [facility] [address] [id number] [place] [address] Apr, [facility] [place] [facility] [address] [id number] [place] [address] Apr, [facility] [place] [facility] [address] [id number], [place] [address] Apr, [facility] [place] [facility] [address] [id number], [place] [address] Apr, [facility] [place] [facility] [address] [id number], [place] [address] Apr, [facility] [place] [facility] [address] [id number], [place] [address] Apr, [facility] [place] [facility] [address] [id number], [place] [address] Mar, [facility] [place] [facility] [address] [id number], [place] [address] Mar, [facility] [place] [facility] [address] [id number], [place] [address] Mar, [facility] [place] [facility] [address] [id number] [place] [address] Mar, [facility] [place] [facility] [address] [id number] [place] [address] Mar, [facility] [place] [facility] [address] [id number] [place] [address] Feb, [facility] [place] [facility] [address] [id number] [place] [address] Feb, [facility] [place] [facility] [address] [id number] [place] [address] Feb, [facility] [place] [facility] [address] [id number] [place] [address] Feb, [facility] [place] [facility] [address] [id number] [place] [address] Feb, [facility] [place] [facility] [address] [id number] [place] [address] Jan, [facility] [place] [facility] [address] [id number] [place] [address] Jan, [facility] [place] [facility] [address] [id number] [place] [address] Nov, [facility] [place] [facility] [address] [id number], [place] [address] Nov, [facility] [place] [facility] [address] [id number], [place] [address] Nov, [facility] [place] [facility] [address] [id number] [place] [address] Nov, [facility] [place] [facility] [address] [id number] [place] [address] October, [facility] [place] [facility] [address] [id number] [place] [address] Sep, [facility] [place] [facility] [address] [id number] [place] [address] Aug, [facility] [place] [facility] [address] [id number] [place] [address] Aug, [facility] [place] [facility] [address] [id number] [place] [address] Aug, [facility] [place] [facility] [address] [id number] [place] [address] Aug, [facility] [place] [facility] [address] [id number] [place] [address] Jul, [facility] [place] [facility] [address] [id number] [place] [address] Jun, [facility] [place] [facility] [address] [id number] [place] [address] 39[address] Jun, [facility] [place] [facility] [address] [id number] [place] [address] May, [facility] [place] [facility] [address] [id number] [place] [address] May, [facility] [place] [facility] [address] [facility] [id number] [place] [id number] Mar, [facility] [place] [facility] [address] [id number] [place] [address] 1581 Mar, [facility] [place] [facility] [address] [id number] [place] [address] 1499 Mar, [facility] [place] [facility] [address] [id number] [place] [address] Mar, [facility] [place] [facility] [address] [id number] [place] [address] Mar, [facility] [place] [facility] [address] [id number] [place] [address] Mar, [facility] [place] [facility] [address] [id number] [place] [address] 6[address] Mar, [facility] [place] [facility] [address] [id number] [place] [address]23 23 Mar, 2011 [facility] [place] [facility] [address] [id number] [place] [address] 4791 22 Mar, 2011 [facility] [place] [facility] [address] [id number] [place] [address] Mar, 2011 [facility] [place] [facility] [address] [id number] [place] [address] 20 Mar, 2011 [facility] [place] [facility] [address] [id number] [place] [address] 3156 Mar, [facility] [place] [facility] [address] [id number] [place] [address] 8804 17 Mar, 2012 [facility] [place] [facility] [address] [id number] [place] [address] 15 Mar, 2012 [facility] [place] [facility] [address] [id number] [place] [address] 15 Mar, 2012 [facility] [place] [facility] [address] [id number] [place] [address] 15 Mar, 2012 [facility] [place] [facility] [address] [id number], [place] [address] 15 Mar, 2012 [facility] [place] [facility] [address] [id number], [place] [address] Mar, [facility] [place] [facility] [address] [id number], [place] [address] Mar, [facility] [place] [facility] [address] [id number] [place] [address] 2975 Mar, [facility] [place] [facility] [address] [id number], [place] [address] 08 Mar, 2012 [facility] [place] [facility] [address] [id number][place] [address] Mar, [facility] [place] [facility] [address] [id number] [place] [address]24 01 Mar, 2012 [facility] [place] [facility] [address] [id number] [place] [address] 1496 19 Sep, 2011 [facility] [place] [facility] [address] [id number] [place] [address] 8716 18 Sep, 2011 [facility] [place] [facility] [address] [id number] [place] [address] 8836 17 Sep, 2011 [facility] [place] [facility] [address] [id number] [place] [address] 5583 14 Sep, 2011 [facility] [place] [facility] [address] [id number] [place] [address] 9659 14 Feb, 2011 [facility] [place] [facility] [address] [id number] [place] [address]30 12 Feb, 2011 [facility] [place] [facility] [address] [id number] [place] [address] 6101 10 Feb, 2011 [facility] [place] [facility] [address] [id number] [place] [address] 6858 31 Jan, 2012 [facility] [place] [facility] [address] [id number] [place] [address] 2252 30 Jan, 2012 [facility] [place] [facility] [address] [id number] [place] [address]- 7103 22 Jan, 2012 [facility] [place] [facility] [address] [id number] [place] [address] 3273 20 Jan, 2012 [facility] [place] [facility] [address] [id number] [place] [address]- 2548 17 Jan, 2012 [facility] [place] [facility] [address] [id number] [place] [address]- 6991 17 Jan, 2012 [facility] [place] [facility] [address] [id number] [place] [address]- 7848 17 Jan, 2012 [facility] [place] [facility] [address] [id number] [place] [address] 8004 16 Jan, 2012 [facility] [place] [facility] [address] [id number] [place] [address] 0648 13 Jan, 2012 [facility] [place] [facility] [address] [id number] [place] [address] Jan, [facility] [place] [facility] [address] [id number] [place] [address] 2546 26 Dec, 2011 [facility] [place] [facility] [address] [id number] [place] [address] 7593 24 Dec, 2011 [facility] [place] [facility] [address] [id number] [place] [address] 4148 23 Dec, 2011 [facility] [place] [facility] [address] [id number] [place] [address]- 1071 Dec, [facility] [place] [facility] [address] [id number] [place] [address]- 0029 18 Dec, 2011 [facility] [place] [facility] [address] [id number] [place] [address]- 9296 17 Dec, 2011 [facility] [place] [facility] [address] [id number] [place] [address] 8299 16 Dec, 2011 [facility] [place] [facility] [address] [id number] [place] [address] 1970 14 Dec, 2011 [facility] [place] [facility] [address] [id number] [place] [address]- 8670 Dec, [facility] [place] [facility] [address] [id number] [place] [address]- 6604 Dec, [facility] [place] [facility] [address] [id number] [place] [address]- 7464 Dec, [facility] [place] [facility] [address] [id number] [place] [address]- 7806 Nov, [facility] [place] [facility] [address] [id number] [place] [address] 2548 Nov, [facility] [place] [facility] [address] [id number] [place] [address] Nov, [facility] [address] [id number] [address] Nov, [facility] [id number] [address] 238[address] Nov, [facility] [id number] [address] 4657 Nov, [facility] [id number] [place] [address] Nov, [facility] [id number] [place] [address] 0060 Nov, [facility] [id number] [place] [address] 0[address] Nov, [facility] [id number], [place] [address] Nov, [facility] [id number], [place] [address] October, IMMUNIZATIONS No Known Immunizations SOCIAL HISTORY Never Assessed REASON FOR VISIT PLAN OF CARE VITAL SIGNS MEDICATIONS Unknown [...]
--- OUTSIDE RECORDS SUMMARY | 2018-01-12 08:56 | XMS REPORT ---
Author Author DIONY XIONG [facility] Address [address] [place] [address] Care Team Providers Care Mental Health Unit Lead Psychologist Name Role Phone DIONY XIONG Unavailable PROBLEMS Type Condition ICD9-CM Code [id number] Code Onset Dates Condition Status SNOMED Code Problem Irritable bowel K58.9 Active 61268252 Problem Hypokalemia E87.6 Active 16608106 Problem Chronic migraine without aura with status migrainosus, not intractable G43.701 Active 906650646 Problem Abnormal glucose R73.09 Active 799482090 Problem Major depressive disorder, recurrent episode, moderate F33.1 Active 898039260 Problem Tremor, hereditary, 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
--- OUTSIDE RECORDS SUMMARY | 2018-01-12 08:56 | XMS REPORT ---
Author CHRISTIE Reeves Organization [employer] Address Unknown Phone Unavailable Care Team Providers Care Candy Cooker Helper Name Role Phone CHRISTIE PLASCENCIA Unavailable Allergies No Known Allergies Problems Problem Type Condition Code Onset Dates Condition Status Problem Dysuria 788.1 Active Problem Unspecified symptom associated with female genital organs 625.9 Active Problem Migraine, unspecified without mention of intractable migraine without mention of status migrainosus 346.90 Active Problem Generalized anxiety disorder F41.1 Active Problem Major depressive disorder, recurrent episode, moderate F33.1 Active Problem ADD (attention deficit disorder) without hyperactivity F90.0 Active Problem Irritable bowel syndrome 564.1 Active Problem Encounter for long-term (current) use of other medications V58.69 Active Problem Cervical pain (neck) 723.1 Active Problem Asthma, unspecified, unspecified status 493.90 Active Problem Abdominal pain, generalized 789.07 Active Problem Lumbago 724.2 Active Problem Acute pain due to trauma 338.11 Active Problem Dental caries limited to enamel 521.01 Active Problem Cough 786.2 Active Problem Unspecified otalgia 388.70 Active Problem Urinary tract infection, site not specified 599.0 Active Problem Unspecified backache 724.5 Active Medications Medication Code System Code Instructions Start Date End Date Status Dosage Amitriptyline HCl [facility] [address]-82 25 MG Orally Once a day December 10, 2014 1 tablet at bedtime Results No Known Results Summary Purpose [employer] Submission
--- OUTSIDE RECORDS SUMMARY | 2018-01-12 08:56 | XMS REPORT ---
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 Active 31874087 Problem Essential hypertension I10 Active 56318857 Problem Intractable chronic migraine without aura and with status migrainosus G43.711 Active 318049354 Problem Moderate persistent asthma with exacerbation J45.41 Active 955130705 Problem Seizure disorder G40.909 Active 093466182 Problem Other chronic pain G89.29 Active 02573248 Problem Moderate persistent asthma without complication J45.40 Active 032283216 Problem Primary insomnia F51.01 Active 5270413 Problem Abnormal glucose R73.09 Active 349582876 Problem Major depressive disorder, recurrent episode, moderate F33.1 Active 371222582 Problem Tremor, hereditary, 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 Active 041974617 Problem Elevated liver enzymes R74.8 Active 749386745 Problem Irritable bowel K58.9 Active 25393287 Problem Hyperlipidemia LDL goal <100 E78.5 Active 27470289 Problem Chronic migraine without aura with status migrainosus, not intractable G43.701 Active 284570162 ALLERGIES No Information ENCOUNTERS Encounter Location Date Diagnosis [facility] [address] [facility] [id number] [address] Sep, [facility] [address] [address] Sep, [facility] [address] [facility] [id number], [place] [address] Aug, Elevated liver enzymes R74.8 and Hyperlipidemia LDL goal < 100 E78.5 [place] [id number] [place] [address] 05719- 0207 Aug, [place] [address] [place] [id number] [place] [address] 21834- 1615 Jul, [place] [address] [place] [id number] [place] [address] 07730- 3081 Jul, Intractable chronic migraine without aura and with status migrainosus G43.711 ; Fever, unspecified fever cause R50.9 and Elevated liver enzymes R74.8 [place] [address] [id number] [place] [address] 87978- 9535 Jun, Difficulty urinating R39.198 and Moderate persistent asthma with exacerbation J45.41 [facility] [address] [id number] [place] [address] 36003- 6287 Jun, [place] [address] [place] [id number] [place] [address] 13575- 8398 Jun, Moderate persistent asthma with exacerbation J45.41 [place] [address] [place] [id number] [place] [address] 62824- 2018 May, Elevated liver enzymes R74.8 and Hyperlipidemia LDL goal < 100 E78.5 [place] [address] [id number] [place] [address] 52161- 4182 May, Elevated lipids E78.5 [place] [address] [id number] [place] [address] 46833- 8137 Apr, Elevated liver enzymes R74.8 [place] [address] [id number] [place] [address] 44625- 1893 Apr, Elevated liver enzymes R74.8 [facility] [address] [id number] [place] [address] 68576- 2857 Apr, Superior glenoid labrum lesion of right shoulder, subsequent encounter S43.431D [place] [address] [id number] [place] [address] 46901- 9192 Apr, Hypokalemia E87.6 ; Major depressive disorder, recurrent episode, moderate F33.1 ; Other abnormalities of breathing R06.89 and Dyspnea, unspecified R06.00 [facility] [id number] [place] [address] 00825 -4145 Mar, Moderate persistent asthma without complication J45.40 [facility] [id number] [place] [address] 84920- 4939 Mar, Impingement syndrome of right shoulder M75.41 [facility] [id number] [place] [address] 04570- 6575 Jan, [place] [address] 16421- 7992 Jan, Chronic migraine without aura with status migrainosus, not intractable G43.701 ; Essential hypertension I10 ; Irritable bowel K58.9 ; Primary insomnia F51.01 and Hypokalemia E87.6 [facility] [id number] [place] [address] 54270- 1405 Dec, [place] [address] 29920- 3600 Dec, Pain in right shoulder M25.511 [place] [address] [id number] [place] [address] 35393- 7551 Dec, Essential hypertension I10 [facility] [id number] [place] [address] 12827- 1278 Dec, [facility] [id number] [place] [address] 75085- 7470 Nov, Essential hypertension I10 [place] [address] 35870- 1699 14 Nov, 2016 Pain in right shoulder M25.511 [facility] [id number] [place] [address] 59920- 9918 Nov, Pain in right shoulder M25.511 [facility] [id number] [place] [address] 00045- 1663 October, [place] [address] [id number] [place] [address] 32546- 8286 October, Pain in right shoulder M25.511 [place] [address] [id number] [place] [address] 69328- 5682 Sep, Arm pain, right M79.601 [place] [id number] [place] [address] 54716- 1775 Sep, [place] [id number] [place] [address] 57861- 7859 Sep, Abnormal glucose R73.09 and Elevated lipids E78.5 [place] [address] [id number] [place] [address] 33311- 7104 Sep, Abnormal glucose R73.09 and Elevated lipids E78.5 [place] [address] [id number] [place] [address] 45080- 3175 Aug, [place] [id number] [place] [address] 93736- 4202 Aug, [place] [id number] [place] [address] 15278- 2949 Aug, [place] [address] [id number] [place] [address] 48284- 5386 Aug, 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 ; Hypokalemia E87.6 ; Irritable bowel K58.9 ; Essential hypertension I10 ; Pain in right shoulder M25.511 ; Seizure disorder G40.909 and Screening for lipid disorders Z13.220 [place] [address] [id number] [place] [address] 57477- 0869 Jul, Other chronic pain G89.29 and Pain in right shoulder M25.511 [place] [address] [id number] [place] [address] 53926- 2674 14 Jul, 2016 Biceps muscle strain, right, subsequent encounter S46.111D [facility] [address] [place] [address] 89314 -0227 Jul, Arm pain, right M79.601 [place] [address] [place] [id number] [place] [address] 50434- 6146 Jun, [place] [address] [id number] [place] [address] 08803- 4354 Jun, Acute non-recurrent frontal sinusitis J01.10 [place] [address] [id number] [place] [address] 26485- 3252 14 May, 2016 Generalized abdominal pain R10.84 ; Urinary tract infection without hematuria, site unspecified N39.0 ; Hypokalemia E87.6 ; Essential hypertension I10 ; Screening for lipid disorders Z13.220 ; Seizure R56.9 and Low back pain M54.5 [place] [address] [place] [id number] [place] [address] 03582- 6894 Apr, [facility] [address] [address] [id number] [place] [address] 52935 -2003 Feb, [place] [address] [id number] [place] [address] 20070- 1788 Jan, [place] [id number] [place] [address] 70988- 7982 Dec, 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 ; Hypokalemia E87.6 ; Irritable bowel K58.9 and Nausea R11.0 [facility] [address] [place] [address] 21161 -1251 Dec, Generalized abdominal pain R10.84 [place] [address] [id number] [place] [address] 59557- 5194 24 Nov, 2015 [facility] [place] [address] [address] [id number] [place] [address] 40151 -1952 14 Aug, 2015 Acute bronchitis J20.9 [place] [address] [place] [address]- 9541 14 Aug, 2015 [place] [address] [id number] [place] [address] 46799- 5456 08 Aug, 2015 Low back pain M54.5 ; Hypokalemia E87.6 ; Chronic migraine without aura with status migrainosus, not intractable G43.701 ; Tremor, hereditary, 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 ; Irritable bowel K58.9 ; Essential hypertension I10 and Seizure R56.9 [place] [address] [place] [id number] [place] [address] 61719- 7447 07 Aug, 2015 [place] [address] 91839- 6757 09 Jul, 2015 [place] [address] 21763- 6565 03 Jul, 2015 Low back pain M54.5 ; Hypokalemia E87.6 ; Chronic migraine without aura with status migrainosus, not intractable G43.701 ; Tremor, hereditary, 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 ; Irritable bowel K58.9 ; Essential hypertension I10 and Seizure R56.9 [place] [address] 54945- 4827 20 Jun, 2015 Hypokalemia E87.6 [place] [address] [id number] [place] [address] 80224- 4583 15 Jun, 2015 ADD (attention deficit disorder) without hyperactivity F90.0 ; Generalized anxiety disorder F41.1 and Major depressive disorder, recurrent episode, moderate F33.1 [place] [address] [place] [id number] [place] [address] 09561- 1911 13 Jun, 2015 Low back pain M54.5 ; Hypokalemia E87.6 ; Chronic migraine without aura with status migrainosus, not intractable G43.701 ; Tremor, hereditary, 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 ; Irritable bowel K58.9 ; Essential hypertension I10 and Seizure R56.9 [place] [address] 95377- 6902 Jun, [place] [address] [address]- 4158 May, [place] [address] [id number] [place] [address] 28373- 6851 May, Low back pain M54.5 ; Hypokalemia E87.6 ; Chronic migraine without aura with status migrainosus, not intractable G43.701 ; Tremor, hereditary, 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 ; Irritable bowel K58.9 ; Essential hypertension I10 ; Seizure R56.9 and Tinea capitis B35.0 [place] [address] [id number] [place] [address] 94457- 0933 May, Low back pain M54.5 ; Hypokalemia E87.6 ; Chronic migraine without aura with status migrainosus, not intractable G43.701 ; Tremor, hereditary, 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 ; Irritable bowel K58.9 ; Essential hypertension I10 ; Seizure R56.9 ; Otitis media, left H66.92 and Dysuria 788.1 [place] [address] [place] [id number] [place] [address] 30188- 9438 May, Tooth pain K08.8 [place] [address] [id number] [place] [address] 47158- 0685 May, [place] [address] [id number] [place] [address] 89573- 5666 May, Low back pain M54.5 ; Hypokalemia E87.6 ; Chronic migraine without aura with status migrainosus, not intractable G43.701 ; Tremor, hereditary, 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 ; Irritable bowel K58.9 and Essential hypertension I10 [place] [address] [place] [id number] [place] [address] 15659- 3098 Apr, Low back pain M54.5 ; Hypokalemia E87.6 ; Chronic migraine without aura with status migrainosus, not intractable G43.701 ; Tremor, hereditary, 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 and Irritable bowel K58.9 [facility] [address] [place] [address] 72625- 3783 Apr, Low back pain M54.5 [facility] [address] [place] [id number] [place] [address] 03444- 1709 Mar, [facility] [address] [place] [id number] [place] [address] 50965- 7220 Mar, Irritable bowel syndrome with diarrhea K58.0 [facility] [address] [id number] [place] [address] 25197- 9121 Mar, [facility] [address] 34273- 4276 Feb, [facility] [address] [place] [id number] [place] [address] 40968- 7463 Feb, [facility] [address] [place] [id number] [place] [address] 87125- 1218 Feb, Irritable bowel syndrome 564.1 ; Lumbago 724.2 and Cervical pain (neck) 723.1 [facility] [address] [place] [id number] [place] [address] 10784- 5420 Dec, Major depressive disorder, recurrent episode, moderate 296.32 and Generalized anxiety disorder 300.02 [facility] [address] [place] [id number] [place] [address] 65027- 1295 Nov, [facility] [address] [place] [id number] [place] [address] 27052- 4471 Nov, Major depressive disorder, recurrent episode, moderate 296.32 [facility] [address] [place] [id number] [place] [address] 76802- 7830 Nov, Constipation 564.00 ; Nausea & vomiting 787.01 and Abdominal pain 789.00 [facility] [address] [place] [id number] [place] [address] 97889- 4988 Nov, [facility] [address] 03356- 1949 October, [facility] [address] [id number] [place] [address]- 4842 October, [facility] [address] [id number] [place] [address]- 1721 October, [facility] [address] [facility] [id number] [place] [address]- 1126 October, [facility] [place] [facility] [address] [facility] [id number] [place] [address]- 7947 Sep, Dysuria 788.1 [facility] [address] [id number] [place] [address]- 8149 Sep, [facility] [place] [facility] [address] [facility] [id number] [place] [address]- 8501 Sep, [facility] [address] [facility] [id number] [place] [address]- 6638 Sep, [facility] [place] [facility] [address] [facility] [id number] [place] [address]- 5243 Sep, [facility] [place] [facility] [address] [facility] [id number] [place] [address]- 5403 Aug, [facility] [place] [facility] [address] [facility] [id number] [place] [address]- 6701 Aug, [facility] [place] [facility] [address] [facility] [id number] [place] [address]- 2413 Aug, [facility] [place] [facility] [address] [id number] [place] [address]- 1846 Aug, [facility] [place] [facility] [address] [id number] [place] [address]- 7030 Aug, [facility] [place] [facility] [address] [facility] [id number] [place] 0287 Aug, [facility] [place] [facility] [address] [facility] [id number] [place] [address]- 5155 Aug, [facility] [place] [facility] [address] [id number] [place] [address]- 9801 Aug, [facility] [place] [facility] [address] [id number] [place] [address]- 2969 Aug, [facility] [place] [facility] [address] [id number] [place] [address]- 1770 Aug, [facility] [place] [facility] [address] [id number] [place] [address]- 7911 Jun, [facility] [place] [facility] [address] [id number] [place] [address]- 1657 Jun, [facility] [place] [facility] [address] [id number] [place] [address]- 7452 Jun, [facility] [place] [facility] [address] [id number] [place] [address]- 0987 Jun, [facility] [place] [facility] [address] [id number] [place] [address]- 9415 May, [facility] [place] [facility] [address] [id number] [place] [address]- 7804 May, [facility] [place] [facility] [address] [id number] [place] [address]- 6140 May, [facility] [place] [facility] [address] [id number] [place] [address]- 0728 May, [facility] [place] [facility] [address] [id number] [place] [address]- 9097 May, [facility] [place] [facility] [address] [id number] [place] [address]- 4227 May, [facility] [place] [facility] [address] [id number] [place] [address]- 8833 May, [facility] [place] [facility] [address] [id number] [place] [address]- 3981 May, [facility] [place] [facility] [address] [id number], [place] [address]- 9802 Mar, [facility] [place] [facility] [address] [id number] [place] [address]- 8664 Mar, [facility] [place] [facility] [address] [id number] [place] [address]- 2360 Mar, [facility] [place] [facility] [address] [id number] [place] [address]- 0584 Mar, [facility] [place] [facility] [address] [id number] [place] [address]- 7080 Mar, [facility] [place] [facility] [address] [id number] [place] [address]- 5783 Mar, [facility] [place] [facility] [address] [id number] [place] [address]- 0063 Mar, [facility] [place] [facility] [address] [id number] [place] [address]- 1124 Mar, [facility] [place] [facility] [address] [id number] [place] [address]- 3003 Mar, [facility] [place] [facility] [address] [id number] [place] [address]- 7280 Mar, [facility] [place] [facility] [address] [id number] [place] [address]- 7346 Mar, [facility] [place] [facility] [address] [id number], [place] [address]- 1342 Mar, [facility] [place] [facility] [address] [id number], [place] [address]- 0470 Feb, [facility] [place] [facility] [address] [id number] [place] [address]- 9009 24 Feb, 2014 [facility] [place] [facility] [address] [id number] [place] [address]- 1933 Feb, [facility] [place] [facility] [address] [id number] [place] [address]- 1750 Feb, [facility] [place] [facility] [address] [id number] [place] [address]- 9260 Feb, [facility] [place] [facility] [address] [id number] [place] [address]- 4021 Feb, [facility] [place] [facility] [address] [id number] [place] [address]- 3303 Jan, [facility] [place] [facility] [address] [id number] [place] [address]- 7085 Jan, [facility] [place] [facility] [address] [id number] [place] [address]- 7026 Jan, [facility] [place] [facility] [address] [id number] [place] [address]- 5826 Jan, [facility] [place] [facility] [address] [id number] [place] [address]- 1976 Jan, [facility] [place] [facility] [address] [id number] [place] [address]- 9200 Jan, [facility] [place] [facility] [address] [id number] [place] [address]- 1989 Jan, [facility] [place] [facility] [address] [id number] [place] [address]- 9439 Jan, [facility] [place] [facility] [address] [id number] [place] [address]- 7863 Dec, [facility] [place] [facility] [address] [id number] [place] [address]- 9250 Dec, [facility] [place] [facility] [address] [id number] [place] [address]- 2378 Dec, [facility] [place] [facility] [address] [id number] [place] [address]- 4796 Dec, [facility] [place] [facility] [address] [id number] [place] [address]- 0358 Dec, [facility] [place] [facility] [address] [id number] [place] [address]- 5792 Dec, [facility] [place] [facility] [address] [id number] [place] [address]- 4151 Dec, [facility] [place] [facility] [address] [id number] [place] [address]- 8931 Dec, [facility] [place] [facility] [address] [id number] [place] [address]- 6756 October, [facility] [place] [facility] [address] [id number] [place] [address]- 4612 October, [facility] [place] [facility] [address] [id number] [place] [address]- 4486 Sep, [facility] [place] [facility] [address] [id number] [place] [address]- 6325 Sep, [facility] [place] [facility] [address] [id number] [place] [address]- 1728 Sep, [facility] [place] [facility] [address] [id number] [place] [address]- 6070 Sep, [facility] [place] [facility] [address] [id number] [place] [address]- 6375 Sep, [facility] [place] [facility] [address] [id number] [place] [address]- 9879 Sep, [facility] [place] [facility] [address] [id number] [place] [address]- 2235 Sep, [facility] [place] [facility] [address] [id number] [place] [address]- 6921 Sep, [facility] [place] [facility] [address] [id number] [place] [address]- 4100 Sep, [facility] [place] [facility] [address] [id number] [place] [address]- 6751 Sep, [facility] [place] [facility] [address] [id number] [place] [address]- 4931 Sep, [facility] [place] [facility] [address] [id number], [place] [address]- 4197 Sep, [facility] [place] [facility] [address] [id number] [place] [address] Aug, [facility] [place] [facility] [address] [id number] [place] [address] Aug, [facility] [place] [facility] [address] [id number] [place] [address] Aug, [facility] [place] [facility] [address] [id number] [place] [address] Jun, [facility] [place] [facility] [address] [id number] [place] [address] Jun, [facility] [place] [facility] [address] [id number] [place] [address] Jun, [facility] [place] [facility] [address] [id number] [place] [address] Jun, [facility] [place] [facility] [address] [id number] [place] [address] Jun, [facility] [place] [facility] [address] [id number] [place] [address] Jun, [facility] [place] [facility] [address] [facility] [id number] [place] [address] Jun, [facility] [place] [facility] [address] [id number], [place] [address] Jun, [facility] [place] [facility] [address] [id number] [place] [address] Jun, [facility] [place] [facility] [address] [id number] [place] [address] Jun, [facility] [place] [facility] [address] [id number] [place] [address] May, [facility] [place] [facility] [address] [id number] [place] [address] May, [facility] [place] [facility] [address] [id number] [place] [address] May, [facility] [place] [facility] [address] [id number] [place] [address] May, [facility] [place] [facility] [address] [id number] [place] [address] Apr, [facility] [place] [facility] [address] [id number] [place] [address] Apr, [facility] [place] [facility] [address] [id number] [place] [address] Apr, [facility] [place] [facility] [address] [id number] [place] [address] Apr, [facility] [place] [facility] [address] [id number] [place] [address] Apr, [facility] [place] [facility] [address] [id number] [place] [address] Apr, [facility] [place] [facility] [address] [id number] [place] [address] Apr, [facility] [place] [facility] [address] [id number] [place] [address] Apr, [facility] [place] [facility] [address] [id number] [place] [address] Mar, [facility] [place] [facility] [address] [id number] [place] [address] Mar, [facility] [place] [facility] [address] [id number] [place] [address] Mar, [facility] [place] [facility] [address] [id number] [place] [address] Mar, [facility] [place] [facility] [address] [id number] [place] [address] Mar, [facility] [place] [facility] [address] [id number] [place] [address] 23 Feb, 2013 [facility] [place] [facility] [address] [id number] [place] [address] 11 Feb, 2013 [facility] [place] [facility] [address] [id number] [place] [address] 05 Feb, 2013 [facility] [place] [facility] [address] [id number] [place] [address] 05 Feb, 2013 [facility] [place] [facility] [address] [id number] [place] [address] 04 Feb, 2013 [facility] [place] [facility] [address] [id number] [place] [address] Jan, [facility] [place] [facility] [address] [id number] [place] [address] Jan, [facility] [place] [facility] [address] [id number] [place] [address] Nov, [facility] [place] [facility] [address] [id number] [place] [address] Nov, [facility] [place] [facility] [address] [id number] [place] [address] Nov, [facility] [place] [facility] [address] [id number] [place] [address] Nov, [facility] [place] [facility] [address] [id number] [place] [address] October, [facility] [place] [facility] [address] [id number] [address] Sep, [facility] [place] [facility] [address] [id number] [place] [address] Aug, [facility] [place] [facility] [address] [id number] [place] [address] 26 Aug, 2012 [facility] [place] [facility] [address] [id number] [place] [address] 16 Aug, 2012 [facility] [place] [facility] [address] [id number] [place] [address] Aug, [facility] [place] [facility] [address] [id number] [place] [address] Jul, [facility] [place] [facility] [address] [id number] [place] [address] Jun, [facility] [place] [facility] [address] [id number] [place] [address] Jun, [facility] [place] [facility] [address] [id number] [place] [address] May, [facility] [place] [facility] [address] [id number] [place] [address] May, [facility] [place] [facility] [address] [id number] [place] [address] Mar, [facility] [place] [facility] [address] [id number] [place] [address] Mar, [facility] [place] [facility] [address] [id number] [place] [address] Mar, [facility] [place] [facility] [address] [id number] [place] [address]702 Mar, [facility] [place] [facility] [address] [id number] [place] [address]145 Mar, [facility] [place] [facility] [address] [id number] [place] [address]- 1016 Mar, [facility] [place] [facility] [address] [id number] [place] [address] Mar, [facility] [place] [facility] [address] [id number] [place] [address] Mar, [facility] [place] [facility] [address] [id number] [place] [address] Mar, [facility] [place] [facility] [address] [facility] [id number] [place] [address] Mar, [facility] [place] [facility] [address] [id number] [place] [address] 20 Mar, 2011 [facility] [place] [facility] [address] [id number] [place] [address] Mar, 2011 [facility] [place] [facility] [address] [id number] [place] [address] 1685 17 Mar, 2011 [facility] [place] [facility] [address] [id number] [place] [address] 15 Mar, 2011 [facility] [place] [facility] [address] [id number] [place] [address] 15 Mar, 2011 [facility] [place] [facility] [address] [id number] [place] [address] 15 Mar, 2012 [facility] [place] [facility] [address] [id number] [place] [address] 4445 15 Mar, 2012 [facility] [place] [facility] [address] [id number] [place] [address] Mar, [facility] [place] [facility] [address] [id number] [place] [address] Mar, [facility] [place] [facility] [address] [id number] [place] [address] Mar, [facility] [place] [facility] [address] [id number] [place] [address] 116[address] Mar, [facility] [place] [facility] [address] [id number] [place] [address] Mar, [facility] [place] [facility] [address] [id number] [place] [address] Mar, [facility] [place] [facility] [address] [id number] [place] [address]27 19 Feb, 2012 [facility] [place] [facility] [address] [id number] [place] [address] 18 Sep2011 [facility] [place] [facility] [address] [id number] [place] [address]81 17 Feb, 2012 [facility] [place] [facility] [address] [id number] [place] [address] 9[address] 14 Feb, 2012 [facility] [place] [facility] [address] [id number] [place] [address] 14 Feb, 2012 [facility] [place] [facility] [address] [id number] [place] [address]106 12 Feb, 2012 [facility] [place] [facility] [address] [id number] [place] [address] 37[address] 10 Feb, 2012 [facility] [place] [facility] [address] [id number] [place] [address] 1680 31 Jan, 2012 [facility] [place] [facility] [address] [id number] [place] [address]007 30 Jan, 2012 [facility] [place] [facility] [address] [id number] [place] [address] 6[address] 22 Jan, 2012 [facility] [place] [facility] [address] [id number] [place] [address] 20 Jan, 2012 [facility] [place] [facility] [address] [id number] [place] [address] 9548 17 Jan, 2012 [facility] [place] [facility] [address] [id number] [place] [address] 2569 17 Jan, 2012 [facility] [place] [facility] [address] [id number] [place] [address] 8707 17 Jan, 2012 [facility] [place] [facility] [address] [id number] [place] [address]- 2684 16 Jan, 2012 [facility] [place] [facility] [address] [id number] [place] [address] 1127 13 Jan, 2012 [facility] [place] [facility] [address] [id number] [place] [address] 1492 07 Jan, 2012 [facility] [place] [facility] [address] [id number] [place] [address] 8363 Dec, [facility] [place] [facility] [address] [id number] [place] [address]- 1064 24 Dec, 2011 [facility] [address] [id number] [place] [address] 8626 23 Dec, 2011 [facility] [place] [facility] [address] [id number] [place] [address] 2546 19 Dec, 2011 [facility] [address] [id number] [place] [address] 18 Dec, 2011 [facility] [place] [facility] [address] [id number] [place] [address] 2546 17 Dec, 2011 [facility] [address] [id number] [place] [address] 2552 16 Dec, 2011 [facility] [address] [id number] [place] [address] 8107 14 Dec, 2011 [facility] [address] [id number] [place] [address] Dec, [facility] [address] [id number] [place] [address] Dec, [facility] [place] [facility] [address] [id number] [place] [address]- 6026 06 Dec, 2011 [facility] [address] [id number] [place] [address]- [address]85 Nov, [facility] [place] [facility] [address] [id number] [place] [address] 2543 Nov, [facility] [place] [facility] [address] [id number] [place] [address]- 5698 Nov, [facility] [place] [facility] [address] [id number] [place] [address]- 5174 Nov, [facility] [place] [facility] [address] [id number] [place] [address]- 2543 Nov, [facility] [place] [facility] [address] [id number] [place] [address]- 9[address] Nov, [facility] [address] [facility] [id number], [place] [address] Nov, [facility] [address] [facility] [id number], [place] [address] Nov, [facility] [address] [facility] [id number], [place] [address]- 1048 Nov, [facility] [address] [facility] [id number], [place] [address] Nov, [facility] [address] [facility] [id number], [place] [address] October, IMMUNIZATIONS No Known Immunizations SOCIAL HISTORY Never Assessed REASON FOR VISIT Lab (walk-in) PLAN OF CARE VITAL SIGNS MEDICATIONS Unknown Medications RESULTS No Results PROCEDURES Procedure Date Ordered Result Body Site LAB NOT BILLED BY [facility] December 05, 2016 VENIPUNCT, ROUTINE* December 05, 2016 INSTRUCTIONS MEDICATIONS ADMINISTERED No Known Medications MEDICAL [...]
--- OUTSIDE RECORDS SUMMARY | 2018-01-12 08:56 | XMS REPORT ---
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 Active Problem Irritable bowel K58.9 Active Problem Nausea R11.0 Active Problem Seizure R56.9 Active Problem 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 Active Problem Hypokalemia E87.6 Active Problem Chronic migraine without aura with status migrainosus, not intractable G43.701 Active Problem Essential hypertension I10 Active Problem Low back pain M54.5 Active Assessment Hypokalemia E87.6 Active Assessment 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 Active Assessment Nausea R11.0 Active Problem Major depressive disorder, recurrent episode, moderate F33.1 Active Assessment Irritable bowel K58.9 Active Problem Generalized anxiety disorder F41.1 Active Medications Medication Code System Code Instructions Start Date End Date Status Dosage Amlodipine Besylate [facility] [address]-97 5 MG Orally Once a day 1/2 tablet Potassium Chloride ER [facility] [address]-77 10 MEQ Orally Twice a day 1 tablet Zofran ODT [facility] [address]-48 4 MG Orally every 8 hrs December 19, 2015 1 tablet on the tongue and allow to dissolve Amitriptyline HCl [facility] 39863697812 25MG Orally Once a day 1 tablet at bedtime Propranolol HCl [facility] [address]-28 80 MG Orally Twice a day 1 tablet Dicyclomine HCl [facility] [address]-37 20 MG Orally Four times a day 1 tablet Lactulose [facility] [address]-41 20 GM/30ML Orally bid day one then Once a day prn constipation December 21, 2015 15 ml Albuterol Sulfate [facility] [address]-38 90 mcg/actuation November 06, 2011 inhale 2 puffs by inhalation route every 4-6 hours as neededPRNcough or wheezing Procedures Procedure Coding System Code Date Office Visit, Est Pt., Level 4 CPT-4 09540 December 21, 2015 VENIPUNCT, ROUTINE* CPT-4 82030 December 21, 2015 [facility] NOBLL December 21, 2015 Vital Signs Date/Time: December 21, 2015 Blood Pressure Systolic 122 mmHg Weight 169.7 lbs Height 65 in Blood Pressure Diastolic 76 mmHg Results No Known Results Summary Purpose [employer] Submission
--- OUTSIDE RECORDS SUMMARY | 2018-01-12 08:57 | XMS REPORT ---
Author Author DIONY XIONG Organization [facility] Address [address] [place] [address] Care Team Providers Care Hotel Houseman Name Role Phone DIONY XIONG Unavailable PROBLEMS Type Condition ICD9-CM Code DNN75-YO Code Onset Dates Condition Status SNOMED Code Problem Chronic migraine without aura with status migrainosus, not intractable G43.701 Active 080987911 Problem Essential hypertension I10 Active 77873398 Problem Hypokalemia E87.6 Active 95913166 Problem Abnormal glucose R73.09 Active 797164698 Problem Major depressive disorder, recurrent episode, moderate F33.1 Active 085013525 Problem Tremor, hereditary, 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 Active 557317797 Problem Irritable bowel K58.9 Active 39691957 Problem Moderate persistent asthma without complication J45.40 Active 668095041 Problem Primary insomnia F51.01 Active 3908565 Problem Other chronic pain G89.29 Active 52141929 Problem 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 Active 62095038 Problem Elevated lipids E78.5 Active 486199538703 Problem Seizure disorder G40.909 Active 792786232 ALLERGIES No Information SOCIAL HISTORY Never Assessed PLAN OF CARE VITAL SIGNS MEDICATIONS Unknown Medications RESULTS No Results PROCEDURES No Known procedures IMMUNIZATIONS No Known Immunizations MEDICAL (GENERAL) HISTORY Type Description Date Medical [...] hysterectomy-total 2005 Surgical History lower GI [place] -not sure results Surgical History EGD Hospitalization [...]
--- OUTSIDE RECORDS SUMMARY | 2018-01-12 08:57 | XMS REPORT ---
Author DIONY Zuluaga [facility] [employer] Address Unknown Phone Unavailable Care Team Providers Care Soap Grinder Name Role Phone DIONY XIONG Unavailable Allergies, Adverse Reactions, Alerts Substance Reaction Event Type N.K.D.A. 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 Active Problem Chronic migraine without aura with status migrainosus, not intractable G43.701 Active Problem Tremor, hereditary, 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 Active Assessment Irritable bowel K58.9 Active Assessment Tremor, hereditary, 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 Active Assessment Chronic migraine without aura with status migrainosus, not intractable G43.701 Active Assessment Essential hypertension I10 Active Assessment Hypokalemia E87.6 Active Medications Medication Code System Code Instructions Start Date End Date Status Dosage Promethazine HCl [facility] [address]-82 25 MG Orally prn nausea May 05, 2015 1 tablet as needed Potassium Chloride ER [facility] [address]-42 10 MEQ Orally every other day 1 tablet Dicyclomine HCl [facility] [address]-29 20 MG Orally Four times a day 1 tablet Propranolol HCl [facility] [address]-96 20 MG Orally Twice a day 1 tablet Amoxicillin [facility] [address]-98 500 MG Orally every 12 hrs 1 tablet Topamax [facility] [address]-34 200 MG Orally Twice a day 1 tablet Gabapentin [facility] [address]-16 100 MG Orally 2 times a day prn 1 capsule Procedures Procedure Coding System Code Date Office Visit, Est Pt., Level 4 CPT-4 20010 May 05, 2015 Vital Signs Date/Time: May 05, 2015 Temperature 98.3 F Weight 178.6 lbs Height 65 in BMI 29.72 Index Blood Pressure Diastolic 82 mmHg Blood Pressure Systolic 134 mmHg Cardiac Monitoring Heart Rate 84 bpm Results No Known Results Summary Purpose [employer] Submission
--- OUTSIDE RECORDS SUMMARY | 2018-01-12 08:57 | XMS REPORT ---
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 Active Problem Irritable bowel K58.9 Active Problem Major depressive disorder, recurrent episode, moderate F33.1 Active Problem Generalized anxiety disorder F41.1 Active Problem Nausea R11.0 Active Problem Seizure R56.9 Active Problem 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 Active Problem Hypokalemia E87.6 Active Problem Chronic migraine without aura with status migrainosus, not intractable G43.701 Active Problem Essential hypertension I10 Active Problem Low back pain M54.5 Active Medications No Known Medications Vital Signs Date/Time: Jan 12, 2016 Blood Pressure Diastolic 90 mmHg Blood Pressure Systolic 138 mmHg Height 65 in Results No Known Results Summary Purpose [employer] Submission
--- OUTSIDE RECORDS SUMMARY | 2018-01-12 08:57 | XMS REPORT ---
Author Author CRISTA SANDOVAL [facility] Address [address] [place] [address] Care Team Providers Care Production Administrator Name Role Phone CRISTA SANDOVAL Unavailable PROBLEMS Type Condition ICD9-CM Code JFA15-VI Code Onset Dates Condition Status SNOMED Code Problem Hypokalemia E87.6 Active 74565008 Problem 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 Active 92058629 Problem Essential hypertension I10 Active 80576047 Problem Intractable chronic migraine without aura and with status migrainosus G43.711 Active 034344084 Problem Moderate persistent asthma with exacerbation J45.41 Active 114113204 Problem Seizure disorder G40.909 Active 983469462 Problem Other chronic pain G89.29 Active 70037585 Problem Moderate persistent asthma without complication J45.40 Active 100853545 Problem Primary insomnia F51.01 Active 0742466 Problem Abnormal glucose R73.09 Active 460997906 Problem Major depressive disorder, recurrent episode, moderate F33.1 Active 213385873 Problem Tremor, hereditary, 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 Active 502389236 Problem Elevated liver enzymes R74.8 Active 495430171 Problem Irritable bowel K58.9 Active 42367756 Problem Hyperlipidemia LDL goal <100 E78.5 Active 17869828 Problem Chronic migraine without aura with status migrainosus, not intractable G43.701 Active 020068303 ALLERGIES Substance Reaction Event Type Date Status Morphine Sulfate rebound headaches Drug Allergy Mar, Active Gabapentin coma Drug Allergy Mar, Active Amoxicillin itching Drug Allergy Mar, Active NSAIDS Hallucinations Non Drug Allergy Mar, Active ENCOUNTERS Encounter Location Date Diagnosis [facility] [address] [facility] [id number], [place] [address] Aug, Elevated liver enzymes R74.8 and Hyperlipidemia LDL goal < 100 E78.5 [facility] [address] [facility] [id number], [place] [address] Aug, [place] [id number] [place] [place] [address] 85103- 4373 Jul, [place] [id number] [place] [address] Jul, Intractable chronic migraine without aura and with status migrainosus G43.711 ; Fever, unspecified fever cause R50.9 and Elevated liver enzymes R74.8 [place] [address] [address]90- 9621 Jun, Difficulty urinating R39.198 and Moderate persistent asthma with exacerbation J45.41 [place] [address] 07671- 0999 Jun, [place] [id number] [place] [address] 73328- 2690 Jun, Moderate persistent asthma with exacerbation J45.41 [place] [id number] [place] [place] [address] 99048- 1656 May, Elevated liver enzymes R74.8 and Hyperlipidemia LDL goal < 100 E78.5 [place] [id number] [place] [address] 50502- 7793 May, Elevated lipids E78.5 [place] [id number] [place] [place] [address] 00936- 7835 Apr, Elevated liver enzymes R74.8 [place] [id number] [place] [address] 84411- 9866 Apr, Elevated liver enzymes R74.8 [place] [id number] [place] [place] [address] 47314- 0234 Apr, Superior glenoid labrum lesion of right shoulder, subsequent encounter S43.431D [place] [id number] [place] [address] 78046- 2727 Apr, Hypokalemia E87.6 ; Major depressive disorder, recurrent episode, moderate F33.1 ; Other abnormalities of breathing R06.89 and Dyspnea, unspecified R06.00 [facility] [id number] [place] [place] [address] 29937 -3574 Mar, Moderate persistent asthma without complication J45.40 [facility] [id number] [place] [place] [address] 77632- 0266 Mar, Impingement syndrome of right shoulder M75.41 [facility] [address] 72631- 0231 Jan, [place] [address] 40271- 1344 Jan, Chronic migraine without aura with status migrainosus, not intractable G43.701 ; Essential hypertension I10 ; Irritable bowel K58.9 ; Primary insomnia F51.01 and Hypokalemia E87.6 [place] [address] 71689- 9632 Dec, [place] [address] 19019- 6101 Dec, Pain in right shoulder M25.511 [place] [address] 20689- 3679 Dec, Essential hypertension I10 [place] [id number] [place] [address] 29390- 0124 Dec, [place] [address] 02307- 3698 Nov, Essential hypertension I10 [place] [id number] [place] [address] 43920- 8761 Nov, Pain in right shoulder M25.511 [facility] [address] 57633- 2773 Nov, Pain in right shoulder M25.511 [place] [address] 12589- 3058 October, [facility] [id number] [place] [address] 96087- 3977 October, Pain in right shoulder M25.511 [facility] [id number] [place] [place] [address] 48150- 8764 Sep, Arm pain, right M79.601 [place] [id number] [place] [place] [address] 38483- 2886 Sep, [facility] [id number] [place] [place] [address] 53889- 8397 Sep, Abnormal glucose R73.09 and Elevated lipids E78.5 [place] [id number] [place] [address] 09407- 9411 Sep, Abnormal glucose R73.09 and Elevated lipids E78.5 [place] [id number] [place] [place] [address] 21045- 6745 Aug, [facility] [id number] [place] [place] [address] 96353- 2697 Aug, [place] [id number] [place] [address] 49836- 0750 Aug, [facility] [id number] [place] [place] [address] 03905- 7788 Aug, 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 ; Hypokalemia E87.6 ; Irritable bowel K58.9 ; Essential hypertension I10 ; Pain in right shoulder M25.511 ; Seizure disorder G40.909 and Screening for lipid disorders Z13.220 [place] [id number] [place] [address] 76083- 7124 28 Jul, 2016 Other chronic pain G89.29 and Pain in right shoulder M25.511 [facility] [id number] [place] [place] [address] 05755- 7678 14 Jul, 2016 Biceps muscle strain, right, subsequent encounter S46.111D [facility] [id number] [place] [address] 54843 -8009 08 Jul, 2016 Arm pain, right M79.601 [place] [address] 05127- 0612 Jun, [place] [id number] [place] [address] 53726- 5436 Jun, Acute non-recurrent frontal sinusitis J01.10 [place] [address] 26863- 4417 May, Generalized abdominal pain R10.84 ; Urinary tract infection without hematuria, site unspecified N39.0 ; Hypokalemia E87.6 ; Essential hypertension I10 ; Screening for lipid disorders Z13.220 ; Seizure R56.9 and Low back pain M54.5 [place] [id number] [place] [address] 99970- 8035 Apr, [facility] [address] 37496 -9138 Feb, [place] [id number] [place] [address] 90861- 6739 Jan, [place] [id number] [place] [address] 30494- 4537 Dec, 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 ; Hypokalemia E87.6 ; Irritable bowel K58.9 and Nausea R11.0 [facility] [id number] [place] [address] 72629 -5709 Dec, Generalized abdominal pain R10.84 [place] [id number] [place] [address] 96342- 6147 24 Nov, 2015 [facility] [id number] [place] [address] 06090 -1268 14 Aug, 2015 Acute bronchitis J20.9 [place] [id number] [place] [address] 47088- 7602 14 Aug, 2015 [place] [id number] [place] [place] [address] 24072- 0737 08 Aug, 2015 Low back pain M54.5 ; Hypokalemia E87.6 ; Chronic migraine without aura with status migrainosus, not intractable G43.701 ; Tremor, hereditary, 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 ; Irritable bowel K58.9 ; Essential hypertension I10 and Seizure R56.9 [place] [address] 45642- 0252 Aug, [place] [id number] [place] [address] 65327- 9904 Jul, [place] [address] 79175- 7155 Jul, Low back pain M54.5 ; Hypokalemia E87.6 ; Chronic migraine without aura with status migrainosus, not intractable G43.701 ; Tremor, hereditary, 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 ; Irritable bowel K58.9 ; Essential hypertension I10 and Seizure R56.9 [place] [id number] [place] [address] 17468- 1926 Jun, Hypokalemia E87.6 [place] [id number] [place] [address] 49731- 3874 15 Jun, 2015 ADD (attention deficit disorder) without hyperactivity F90.0 ; Generalized anxiety disorder F41.1 and Major depressive disorder, recurrent episode, moderate F33.1 [place] [id number] [place] [address] 60973- 7483 13 Jun, 2015 Low back pain M54.5 ; Hypokalemia E87.6 ; Chronic migraine without aura with status migrainosus, not intractable G43.701 ; Tremor, hereditary, 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 ; Irritable bowel K58.9 ; Essential hypertension I10 and Seizure R56.9 [place] [id number] [place] [address] 57388- 3750 Jun, [place] [address] [place] [id number] [place] [address]- 2628 May, [place] [address] 76324- 6576 30 May, 2015 Low back pain M54.5 ; Hypokalemia E87.6 ; Chronic migraine without aura with status migrainosus, not intractable G43.701 ; Tremor, hereditary, 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 ; Irritable bowel K58.9 ; Essential hypertension I10 ; Seizure R56.9 and Tinea capitis B35.0 [place] [address] 89257- 3810 17 May, 2015 Low back pain M54.5 ; Hypokalemia E87.6 ; Chronic migraine without aura with status migrainosus, not intractable G43.701 ; Tremor, hereditary, 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 ; Irritable bowel K58.9 ; Essential hypertension I10 ; Seizure R56.9 ; Otitis media, left H66.92 and Dysuria 788.1 [place] [address] 57704- 9963 14 May, 2015 Tooth pain K08.8 [place] [address] 34814- 4072 May, [place] [id number] [place] [address] 96220- 4390 May, Low back pain M54.5 ; Hypokalemia E87.6 ; Chronic migraine without aura with status migrainosus, not intractable G43.701 ; Tremor, hereditary, 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 ; Irritable bowel K58.9 and Essential hypertension I10 [place] [id number] [place] [address] 53485- 9907 18 Apr, 2015 Low back pain M54.5 ; Hypokalemia E87.6 ; Chronic migraine without aura with status migrainosus, not intractable G43.701 ; Tremor, hereditary, 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 and Irritable bowel K58.9 [place] [address] 99801- 6027 Apr, Low back pain M54.5 [facility] [address] [place] [place] [address] 06428- 0478 Mar, [facility] [id number] [place] [place] [address] 31160- 3818 Mar, Irritable bowel syndrome with diarrhea K58.0 [facility] [id number] [place] [place] [address] 05023- 7214 Mar, [facility] [id number] [place] [address] 62871- 5551 Feb, [facility] [id number] [place] [address] 12072- 8063 Feb, [facility] [address] [place] [place] [address] 23255- 2915 Feb, Irritable bowel syndrome 564.1 ; Lumbago 724.2 and Cervical pain (neck) 723.1 [facility] [address] [place] [address] 26722- 3921 Dec, Major depressive disorder, recurrent episode, moderate 296.32 and Generalized anxiety disorder 300.02 [facility] [address] [address]- 8450 Nov, [facility] [address] [place] [address] 20540- 2543 Nov, Major depressive disorder, recurrent episode, moderate 296.32 [facility] [address] [address]- 6318 Nov, Constipation 564.00 ; Nausea & vomiting 787.01 and Abdominal pain 789.00 [facility] [address], [place] [address]- 8192 Nov, [facility] [address], [place] [address]- 4745 October, [facility] [id number] [place] [address]- 5446 October, [facility] [address] [id number] [place] [address]- 7032 October, [facility] [place] [facility] [address] [id number] [place] [address] 2546 October, [facility] [place] [facility] [address] [id number] [place] [address]- 7056 Sep, Dysuria 788.1 [facility] [place] [facility] [address] [id number] [place] [address] 2546 Sep, [facility] [place] [facility] [address] [id number] [place] [address]- 5507 Sep, [facility] [place] [facility] [address] [facility] [id number] [place] [address]- 6789 Sep, [facility] [place] [facility] [address] [facility] [id number] [place] [address]- 3766 Sep, [facility] [place] [facility] [address] [facility] [id number] [place] [address]- 4769 Aug, [facility] [place] [facility] [address] [facility] [id number] [place] [address]- 7021 Aug, [facility] [place] [facility] [address] [facility] [id number] [place] [address]- 1407 Aug, [facility] [place] [facility] [address] [facility] [id number] [place] [address]- 2546 Aug, [facility] [place] [facility] [address] [id number] [place] [address] 2546 Aug, [facility] [place] [facility] [address] [id number] [place] [address] 2546 Aug, [facility] [place] [facility] [address] [facility] [id number] [place] [address] 2546 Aug, [facility] [place] [facility] [address] [facility] [id number] [place] [address]- 3189 Aug, [facility] [place] [facility] [address] [id number] [place] [address]- 4394 Aug, [facility] [place] [facility] [address] [id number] [place] [address]- 3546 Aug, [facility] [place] [facility] [address] [facility] [id number] [place] [address]- 1564 Jun, [facility] [place] [facility] [address] [id number] [place] [address]- 0706 Jun, [facility] [place] [facility] [address] [id number] [place] [address]- 9409 Jun, [facility] [place] [facility] [address] [id number] [place] [address]- 4873 Jun, [facility] [place] [facility] [address] [facility] [id number] [place] [address]- 6652 May, [facility] [place] [facility] [address] [id number], [place] [address]- 8408 May, [facility] [place] [facility] [address] [id number] [place] [address]- 3861 May, [facility] [place] [facility] [address] [id number] [place] [address]- 5664 May, [facility] [place] [facility] [address] [id number], [place] [address]- 2854 May, [facility] [place] [facility] [address] [id number], [place] [address]- 4724 May, [facility] [place] [facility] [address] [id number] [place] [address]- 6256 May, [facility] [place] [facility] [address] [id number] [place] [address]- 2279 May, [facility] [place] [facility] [address] [id number] [place] [address]- 5443 Mar, [facility] [place] [facility] [address] [id number] [place] [address]- 6626 30 Mar, 2014 [facility] [place] [facility] [address] [id number] [place] [address]- 6727 Mar, [facility] [place] [facility] [address] [id number] [place] [address]- 1774 Mar, [facility] [place] [facility] [address] [id number] [place] [address]- 5670 Mar, [facility] [place] [facility] [address] [id number] [place] [address]- 1447 Mar, [facility] [place] [facility] [address] [id number] [place] [address]- 4923 Mar, [facility] [place] [facility] [address] [id number] [place] [address]- 9646 Mar, [facility] [place] [facility] [address] [id number] [place] [address]- 6197 Mar, [facility] [place] [facility] [address] [id number] [place] [address]- 6298 Mar, [facility] [place] [facility] [address] [id number] [place] [address]- 2677 Mar, [facility] [place] [facility] [address] [id number] [place] [address]- 4500 Mar, [facility] [place] [facility] [address] [id number] [place] [address]- 3948 24 Feb, 2014 [facility] [place] [facility] [address] [id number] [place] [address]- 9389 24 Feb, 2014 [facility] [place] [facility] [address] [id number] [place] [address]- 1871 22 Feb, 2014 [facility] [place] [facility] [address] [id number] [place] [address]- 7398 22 Feb, 2013 [facility] [place] [facility] [address] [id number] [place] [address]- 3888 Feb, [facility] [place] [facility] [address] [id number] [place] [address]- 8577 Feb, [facility] [place] [facility] [address] [id number] [place] [address]- 2595 Jan, [facility] [place] [facility] [address] [id number] [place] [address]- 1888 Jan, [facility] [place] [facility] [address] [id number] [place] [address]- 9626 Jan, [facility] [place] [facility] [address] [id number] [place] [address]- 8752 Jan, [facility] [place] [facility] [address] [id number] [place] [address]- 8855 Jan, [facility] [place] [facility] [address] [id number] [place] [address]- 2388 Jan, [facility] [place] [facility] [address] [id number] [place] [address]- 7054 Jan, [facility] [place] [facility] [address] [id number] [place] [address]- 2747 Jan, [facility] [place] [facility] [address] [id number] [place] [address]- 9369 Dec, [facility] [place] [facility] [address] [id number] [place] [address]- 5691 Dec, [facility] [place] [facility] [address] [id number] [place] [address]- 8699 Dec, [facility] [place] [facility] [address] [id number] [place] [address]- 2611 Dec, [facility] [place] [facility] [address] [id number] [place] [address]- 4744 Dec, [facility] [place] [facility] [address] [id number] [place] [address]- 3142 Dec, [facility] [place] [facility] [address] [id number] [place] [address]- 5249 Dec, [facility] [place] [facility] [address] [id number] [place] [address]- 5365 Dec, [facility] [place] [facility] [address] [id number] [place] [address]- 7392 October, [facility] [place] [facility] [address] [id number] [place] [address]- 9864 October, [facility] [place] [facility] [address] [id number] [place] [address]- 7669 Sep, [facility] [place] [facility] [address] [id number] [place] [address]- 3603 Sep, [facility] [place] [facility] [address] [id number] [place] [address]- 7401 Sep, [facility] [place] [facility] [address] [id number] [place] [address]- 9658 Sep, [facility] [place] [facility] [address] [id number] [place] [address]- 2069 Sep, [facility] [place] [facility] [address] [id number] [place] [address]- 8544 Sep, [facility] [place] [facility] [address] [id number] [place] [address]- 6435 Sep, [facility] [place] [facility] [address] [id number] [place] [address]- 6248 Sep, [facility] [place] [facility] [address] [id number] [place] [address]- 2671 Sep, [facility] [place] [facility] [address] [id number] [place] [address]- 3761 Sep, [facility] [place] [facility] [address] [id number] [place] [address]- 5764 Sep, [facility] [place] [facility] [address] [id number] [place] [address]- 25[address] Sep, [facility] [place] [facility] [address] [id number] [place] [address] Aug, [facility] [address] [id number] [place] [address] Aug, [facility] [place] [facility] [address] [id number] [place] [address] Aug, [facility] [address] [id number] [place] [address] Jun, [facility] [address] [id number] [place] [address] Jun, [facility] [address] [id number] [place] [address] Jun, [facility] [address] [id number] [place] [address] Jun, [facility] [address] [id number] [place] [address] Jun, [facility] [address] [id number] [place] [address] Jun, [facility] [address] [id number] [place] [address] Jun, [facility] [address] [id number] [place] [address] Jun, [facility] [address] [id number] [place] [address] Jun, [facility] [address] [id number] [place] [address] Jun, [facility] [place] [facility] [address] [id number] [place] [address] May, [facility] [place] [facility] [address] [id number] [place] [address] May, [facility] [address] [id number] [place] [address] May, [facility] [place] [facility] [address] [id number] [place] [address] May, [facility] [place] [facility] [address] [id number] [place] [address] Apr, [facility] [place] [facility] [address] [id number] [place] [address] Apr, [facility] [place] [facility] [address] [id number] [place] [address] Apr, [facility] [place] [facility] [address] [id number] [place] [address] Apr, [facility] [place] [facility] [address] [id number] [place] [address] Apr, [facility] [place] [facility] [address] [id number] [place] [address] Apr, [facility] [place] [facility] [address] [id number] [place] [address] Apr, [facility] [place] [facility] [address] [id number] [place] [address] Apr, [facility] [place] [facility] [address] [id number], [place] [address] Mar, [facility] [place] [facility] [address] [id number], [place] [address] Mar, [facility] [place] [facility] [address] [id number], [place] [address] Mar, [facility] [place] [facility] [address] [id number] [place] [address] Mar, [facility] [place] [facility] [address] [id number], [place] [address] Mar, [facility] [place] [facility] [address] [id number], [place] [address] Feb, [facility] [place] [facility] [address] [id number] [place] [address] 11 Feb, 2013 [facility] [address] [id number] [place] [address] 05 Feb, 2013 [facility] [place] [facility] [address] [id number] [place] [address] 05 Feb, 2013 [facility] [address] [id number] [place] [address] 04 Feb, 2013 [facility] [place] [facility] [address] [id number] [place] [address] 30 Jan, 2013 [facility] [address] [id number] [place] [address] Jan, [facility] [address] [id number] [place] [address] Nov, [facility] [facility] [address] [id number] [place] [address] Nov, [facility] [address] [id number] [place] [address] Nov, [facility] [address] [id number] [place] [address] Nov, [facility] [address] [id number] [place] [address] October, [facility] [address] [id number] [place] [address] Sep, [facility] [place] [facility] [address] [id number] [place] [address] Aug, [facility] [place] [facility] [address] [id number] [place] [address] 26 Aug, 2012 [facility] [place] [facility] [address] [id number] [place] [address] 16 Aug, 2012 [facility] [place] [facility] [address] [id number] [place] [address] 06 Aug, 2012 [facility] [place] [facility] [address] [id number] [place] [address] Jul, [facility] [place] [facility] [address] [id number] [place] [address] Jun, [facility] [place] [facility] [address] [id number] [place] [address] Jun, [facility] [place] [facility] [address] [id number] [place] [address] May, [facility] [place] [facility] [address] [id number] [place] [address] May, [facility] [place] [facility] [address] [id number] [place] [id number] Mar, [facility] [place] [facility] [address] [id number] [place] [address] Mar, [facility] [place] [facility] [address] [id number] [place] [address] Mar, [facility] [place] [facility] [address] [id number] [place] [address] Mar, [facility] [place] [facility] [address] [id number] [place] [address] Mar, [facility] [place] [facility] [address] [id number] [place] [address] Mar, [facility] [place] [facility] [address] [id number] [place] [address] Mar, [facility] [place] [facility] [address] [id number] [place] [address] Mar, [facility] [place] [facility] [address] [id number] [place] [address] Mar, [facility] [place] [facility] [address] [id number] [place] [address] Mar, [facility] [place] [facility] [address] [id number] [place] [address] 20 Mar, 2012 [facility] [place] [facility] [address] [id number] [place] [address] 17 Mar, 2012 [facility] [place] [facility] [address] [id number] [place] [address] 8517 17 Mar, 2012 [facility] [place] [facility] [address] [id number] [place] [address] 15 Mar, 2012 [facility] [place] [facility] [address] [id number] [place] [address] 15 Mar, 2012 [facility] [place] [facility] [address] [id number] [place] [address] 15 Mar, 2012 [facility] [place] [facility] [address] [id number] [place] [address] 15 Mar, 2012 [facility] [place] [facility] [address] [id number] [place] [address] Mar, [facility] [place] [facility] [address] [id number], [place] [address] Mar, [facility] [place] [facility] [address] [id number] [place] [address] Mar, [facility] [place] [facility] [address] [id number], [place] [address] 08 Mar, 2012 [facility] [place] [facility] [address] [id number], [place] [address] Mar, [facility] [place] [facility] [address] [id number], [place] [address] Mar, [facility] [place] [facility] [address] [id number] [place] [address]26 19 Feb, 2012 [facility] [place] [facility] [address] [id number], [place] [address] 18 Feb, 2012 [facility] [place] [facility] [address] [id number], [place] [address] 17 Feb, 2012 [facility] [place] [facility] [address] [id number] [place] [address] 14 Feb, 2011 [facility] [place] [facility] [address] [id number] [place] [address] 14 Feb, 2011 [facility] [place] [facility] [address] [id number] [place] [address]46 12 Feb, 2012 [facility] [place] [facility] [address] [id number] [place] [address]46 10 Feb, 2012 [facility] [place] [facility] [address] [id number] [place] [address] 31 Jan, 2012 [facility] [place] [facility] [address] [id number] [place] [address] 30 Jan, 2012 [facility] [place] [facility] [address] [id number] [place] [address]96 22 Jan, 2012 [facility] [place] [facility] [address] [id number] [place] [address] 20 Jan, 2012 [facility] [place] [facility] [address] [id number] [place] [address] 17 Jan, 2012 [facility] [place] [facility] [address] [id number] [place] [address]169 17 Jan, 2012 [facility] [place] [facility] [address] [id number] [place] [address]40 17 Jan, 2012 [facility] [place] [facility] [address] [id number] [place] [address] 2540 16 Jan, 2012 [facility] [place] [facility] [address] [id number] [place] [address]40 13 Jan, 2012 [facility] [place] [facility] [address] [id number] [place] [address] 07 Jan, 2012 [facility] [place] [facility] [address] [id number] [place] [address]- [address] Dec, [facility] [place] [facility] [address] [id number] [place] [address]- [address]227 24 Dec, 2011 [facility] [place] [facility] [address] [id number] [place] [address] Dec, [facility] [place] [facility] [address] [id number] [place] [address] Dec, [facility] [place] [facility] [address] [id number] [place] [address]- 3581 18 Dec, 2011 [facility] [place] [facility] [address] [id number] [place] [address] 17 Dec, 2011 [facility] [place] [facility] [address] [id number] [place] [address]28 16 Dec, 2011 [facility] [place] [facility] [address] [id number] [place] [address] 14 Dec, 2011 [facility] [place] [facility] [address] [id number] [place] [address] Dec, [facility] [place] [facility] [address] [id number] [place] [address] Dec, [facility] [place] [facility] [address] [id number] [place] [address] Dec, [facility] [place] [facility] [address] [id number] [place] [address] Nov, [facility] [place] [facility] [address] [id number] [place] [address] Nov, [facility] [place] [facility] [address] [id number] [place] [address] Nov, [facility] [place] [facility] [address] [id number] [place] [address]- [address] Nov, [facility] [place] [facility] [address] [id number] [place] [address] Nov, [facility] [place] [facility] [address] [id number] [place] [address] 3180 Nov, [facility] [place] [facility] [address] [id number], [place] [address] Nov, [facility] [address] [facility] [id number] [place] [address] Nov, [facility] [address] [facility] [id number], [place] [address] Nov, [facility] [address] [facility] [id number], [place] [address] Nov, [facility] [address] [facility] [id number], [place] [address] October, IMMUNIZATIONS No Known Immunizations SOCIAL HISTORY Never Assessed REASON FOR VISIT breathing issues- short of breath at night, feels like somone is sitting on chest JStrasserRN PLAN OF CARE Activity Details Follow Up prn Reason: VITAL SIGNS Height 65 in 2017-03-15 Weight 183.8 lbs 2017-03-15 Temperature 97.3 degrees Fahrenheit 2017-03-15 Heart Rate 70 bpm 2017-03-15 Respiratory Rate 20 2017-03-15 Oximetry 100 % 2017-03-15 BMI 30.58 kg/m2 2017-03-15 Blood pressure systolic 110 mmHg 2017-03-15 Blood pressure diastolic 64 mmHg 2017-03-15 MEDICATIONS Medication Instructions Dosage Frequency Start Date End Date Duration Status Fluticasone Propionate HFA 44 MCG/ACT Inhalation Twice a day 2 puffs 12h 13 Mar, 2017 Apr, 30 days Active Potassium Chloride ER 10 MEQ Orally Twice a day 1 tablet 12h Active Omeprazole 40 mg Orally Once a day 1 capsule 24h May, Active Amlodipine Besylate 2.5 MG Orally Once a day 1 tablet 24h 03 Jan, 2017 30 day(s) Active Albuterol Sulfate 90 mcg/actuation inhale 2 puffs by inhalation route every 4-6 hours as neededPRNcough or wheezing Nov, Active Propranolol HCl 80 mg Orally Twice a day 1 tablet 12h 30 Active Dicyclomine HCl 20 mg Orally Four times a day 1 tablet 6h 30 Active Amitriptyline HCl 10 mg Orally Once a day 1 tablet at hs 24h 30 Active RESULTS No Results PROCEDURES Procedure Date Ordered Result Body Site MEASURE BLOOD OXYGEN LEVEL Mar 15, 2017 INSTRUCTIONS MEDICATIONS ADMINISTERED No Known Medications [...] hysterectomy-total 2005 Surgical History lower GI [place] -not sure results Surgical History EGD Hospitalization [...]
--- OUTSIDE RECORDS SUMMARY | 2018-01-12 08:57 | XMS REPORT ---
Author PILY Ivey Organization [employer] Address Unknown Phone Unavailable Care Team Providers Care Tongue Trimmer Name Role Phone PILY PORTILLO CP Unavailable [...] Active Problem Unspecified backache 724.5 Active Medications No Known Medications Results No Known Results Summary Purpose [employer] Submission
--- OUTSIDE RECORDS SUMMARY | 2018-01-12 08:58 | XMS REPORT ---
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 Active 25204825 Problem Essential hypertension I10 Active 36003640 Problem Intractable chronic migraine without aura and with status migrainosus G43.711 Active 870081600 Problem Moderate persistent asthma with exacerbation J45.41 Active 029141686 Problem Seizure disorder G40.909 Active 290482492 Problem Other chronic pain G89.29 Active 14963190 Problem Moderate persistent asthma without complication J45.40 Active 073377040 Problem Primary insomnia F51.01 Active 2771380 Problem Abnormal glucose R73.09 Active 705750740 Problem Major depressive disorder, recurrent episode, moderate F33.1 Active 169665218 Problem Tremor, hereditary, 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 Active 199321741 Problem Elevated liver enzymes R74.8 Active 708763275 Problem Irritable bowel K58.9 Active 13384538 Problem Hyperlipidemia LDL goal <100 E78.5 Active 17156744 Problem Chronic migraine without aura with status migrainosus, not intractable G43.701 Active 815293678 ALLERGIES No Information ENCOUNTERS Encounter Location Date Diagnosis [facility] [address], [place] [address] Sep, [facility] [address], [place] [address] Sep, [facility] [id number] [address] Aug, Elevated liver enzymes R74.8 and Hyperlipidemia LDL goal < 100 E78.5 [facility] [address] [place] [address] 03578- 2478 Aug, [place] [id number] [place] [address] 00869- 2748 Jul, [place] [id number] [place] [address] 00978- 8464 Jul, Intractable chronic migraine without aura and with status migrainosus G43.711 ; Fever, unspecified fever cause R50.9 and Elevated liver enzymes R74.8 [place] [id number] [place] [address] 64114- 1600 Jun, Difficulty urinating R39.198 and Moderate persistent asthma with exacerbation J45.41 [place] [id number] [place] [address] 62466- 3912 Jun, [place] [id number] [place] [address] 35483- 0564 Jun, Moderate persistent asthma with exacerbation J45.41 [place] [id number] [place] [address] 55978- 3838 May, Elevated liver enzymes R74.8 and Hyperlipidemia LDL goal < 100 E78.5 [place] [id number] [place] [address] 48956- 9108 May, Elevated lipids E78.5 [place] [id number] [place] [address] 14987- 5496 Apr, Elevated liver enzymes R74.8 [place] [id number] [place] [address] 97050- 5241 Apr, Elevated liver enzymes R74.8 [place] [id number] [place] [address] 59891- 0016 Apr, Superior glenoid labrum lesion of right shoulder, subsequent encounter S43.431D [place] [id number] [place] [address] 10839- 1836 Apr, Hypokalemia E87.6 ; Major depressive disorder, recurrent episode, moderate F33.1 ; Other abnormalities of breathing R06.89 and Dyspnea, unspecified R06.00 [facility] [address] [address] -[address]182 Mar, Moderate persistent asthma without complication J45.40 [facility] [address] 11390- 4976 Mar, Impingement syndrome of right shoulder M75.41 [facility] [address] 74128- 0363 Jan, [place] [address] 29859- 3404 Jan, Chronic migraine without aura with status migrainosus, not intractable G43.701 ; Essential hypertension I10 ; Irritable bowel K58.9 ; Primary insomnia F51.01 and Hypokalemia E87.6 [facility] [address] 83235- 1451 Dec, [place] [address] 47819- 0679 Dec, Pain in right shoulder M25.511 [place] [address] 81743- 1692 Dec, Essential hypertension I10 [facility] [address] 81167- 6955 Dec, [facility] [id number] [place] [address] 27316- 4559 Nov, Essential hypertension I10 [place] [address] 74983- 2981 Nov, Pain in right shoulder M25.511 [facility] [address] 45629- 9050 Nov, Pain in right shoulder M25.511 [place] [address] [place] [address]- 6617 October, [place] [id number] [place] [address] 48209- 0370 October, Pain in right shoulder M25.511 [facility] [id number] [place] [address] 93071- 0834 Sep, Arm pain, right M79.601 [place] [address] 13365- 8168 Sep, [place] [address] 76937- 9652 Sep, Abnormal glucose R73.09 and Elevated lipids E78.5 [place] [address] 81975- 7788 Sep, Abnormal glucose R73.09 and Elevated lipids E78.5 [place] [address] 45455- 9107 Aug, [place] [address] 75355- 4249 Aug, [place] [id number] [place] [address] 92999- 7897 Aug, [place] [id number] [place] [address] 76512- 1567 Aug, 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 ; Hypokalemia E87.6 ; Irritable bowel K58.9 ; Essential hypertension I10 ; Pain in right shoulder M25.511 ; Seizure disorder G40.909 and Screening for lipid disorders Z13.220 [place] [address] 53113- 5556 28 Jul, 2016 Other chronic pain G89.29 and Pain in right shoulder M25.511 [facility] [id number] [place] [address] 71442- 6770 14 Jul, 2016 Biceps muscle strain, right, subsequent encounter S46.111D [facility] [id number] [place] [address] 51502 -2858 08 Jul, 2016 Arm pain, right M79.601 [place] [address] [place] [address] 34165- 8841 Jun, [place] [address] [place] [address] 84173- 3515 Jun, Acute non-recurrent frontal sinusitis J01.10 [place] [address] [place] [address] 37296- 1043 May, Generalized abdominal pain R10.84 ; Urinary tract infection without hematuria, site unspecified N39.0 ; Hypokalemia E87.6 ; Essential hypertension I10 ; Screening for lipid disorders Z13.220 ; Seizure R56.9 and Low back pain M54.5 [place] [id number] [place] [address] 40794- 3313 Apr, [facility] [id number] [place] [address] 13682 -7085 Feb, [place] [id number] [place] [address] 82003- 8111 Jan, [place] [id number] [place] [address] 17254- 7244 Dec, 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 ; Hypokalemia E87.6 ; Irritable bowel K58.9 and Nausea R11.0 [facility] [place] [id number] [place] [address] 49770 -0273 Dec, Generalized abdominal pain R10.84 [place] [address] 60002- 8095 24 Nov, 2015 [facility] [place] [id number] [place] [address] 52393 -1617 14 Aug, 2015 Acute bronchitis J20.9 [place] [address] 87018- 7702 14 Aug, 2015 [place] [id number] [place] [address] 78597- 8795 08 Aug, 2015 Low back pain M54.5 ; Hypokalemia E87.6 ; Chronic migraine without aura with status migrainosus, not intractable G43.701 ; Tremor, hereditary, 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 ; Irritable bowel K58.9 ; Essential hypertension I10 and Seizure R56.9 [place] [address] 79291- 0765 07 Aug, 2015 [place] [id number] [place] [address] 57480- 7687 Jul, [place] [address] 40188- 5396 03 Jul, 2015 Low back pain M54.5 ; Hypokalemia E87.6 ; Chronic migraine without aura with status migrainosus, not intractable G43.701 ; Tremor, hereditary, 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 ; Irritable bowel K58.9 ; Essential hypertension I10 and Seizure R56.9 [place] [address] [place] [address] 41549- 3842 Jun, Hypokalemia E87.6 [place] [address] [place] [address] 53157- 2710 15 Jun, 2015 ADD (attention deficit disorder) without hyperactivity F90.0 ; Generalized anxiety disorder F41.1 and Major depressive disorder, recurrent episode, moderate F33.1 [place] [id number] [place] [address] 56476- 1513 13 Jun, 2015 Low back pain M54.5 ; Hypokalemia E87.6 ; Chronic migraine without aura with status migrainosus, not intractable G43.701 ; Tremor, hereditary, 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 ; Irritable bowel K58.9 ; Essential hypertension I10 and Seizure R56.9 [place] [id number] [place] [address] 45964- 3012 Jun, [place] [address], [place] [address]- 5119 May, [place] [id number] [place] [address] 75342- 1846 May, Low back pain M54.5 ; Hypokalemia E87.6 ; Chronic migraine without aura with status migrainosus, not intractable G43.701 ; Tremor, hereditary, 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 ; Irritable bowel K58.9 ; Essential hypertension I10 ; Seizure R56.9 and Tinea capitis B35.0 [place] [address] [place] [address] 87078- 1094 May, Low back pain M54.5 ; Hypokalemia E87.6 ; Chronic migraine without aura with status migrainosus, not intractable G43.701 ; Tremor, hereditary, 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 ; Irritable bowel K58.9 ; Essential hypertension I10 ; Seizure R56.9 ; Otitis media, left H66.92 and Dysuria 788.1 [place] [id number] [place] [address] 18607- 8946 May, Tooth pain K08.8 [place] [id number] [place] [address] 94887- 3450 May, [place] [id number] [place] [address] 41995- 3262 May, Low back pain M54.5 ; Hypokalemia E87.6 ; Chronic migraine without aura with status migrainosus, not intractable G43.701 ; Tremor, hereditary, 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 ; Irritable bowel K58.9 and Essential hypertension I10 [place] [address] [place] [address] 15434- 6603 Apr, Low back pain M54.5 ; Hypokalemia E87.6 ; Chronic migraine without aura with status migrainosus, not intractable G43.701 ; Tremor, hereditary, 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 and Irritable bowel K58.9 [place] [address], [place] [address]- 2206 Apr, Low back pain M54.5 [facility] [id number] [place] [address] 51681- 2810 Mar, [facility] [id number] [place] [address] 18954- 1848 Mar, Irritable bowel syndrome with diarrhea K58.0 [facility] [id number] [place] [address] 22748- 1497 Mar, [facility] [id number] [place] [address] 93674- 9796 Feb, [facility] [id number] [place] [address] 15752- 8831 Feb, [facility] [id number] [place] [address] 99408- 3576 Feb, Irritable bowel syndrome 564.1 ; Lumbago 724.2 and Cervical pain (neck) 723.1 [facility] [id number] [place] [address] 96609- 7799 Dec, Major depressive disorder, recurrent episode, moderate 296.32 and Generalized anxiety disorder 300.02 [facility] [address], [place] [address]- 3653 Nov, [facility] [id number] [place] [address] 99296- 8798 Nov, Major depressive disorder, recurrent episode, moderate 296.32 [facility] [address] [place] [address] 43421- 5134 Nov, Constipation 564.00 ; Nausea & vomiting 787.01 and Abdominal pain 789.00 [facility] [id number] [place] [address] 81255- 8645 Nov, [facility] [id number] [place] [address] 85161- 1926 October, [facility] [place] [facility] [address] [id number] [place] [address]- 7581 October, [facility] [place] [facility] [address] [id number] [place] [address]- 8945 October, [facility] [place] [facility] [address] [id number] [place] [address]- 8274 October, [facility] [place] [facility] [address] [id number] [place] [address]- 1847 Sep, Dysuria 788.1 [facility] [place] [facility] [address] [id number] [place] [address]- 5083 Sep, [facility] [place] [facility] [address] [id number] [place] [address]- 7243 Sep, [facility] [place] [facility] [address] [facility] [id number] [place] [address]- 1437 Sep, [facility] [place] [facility] [address] [id number] [place] [address]- 9474 Sep, [facility] [place] [facility] [address] [id number] [place] [address]- 7308 Aug, [facility] [place] [facility] [address] [id number] [place] [address]- 6239 Aug, [facility] [place] [facility] [address] [id number] [place] [address]- 4828 Aug, [facility] [place] [facility] [address] [id number] [place] [address]- 7711 Aug, [facility] [place] [facility] [address] [id number] [place] [address]- 4484 Aug, [facility] [place] [facility] [address] [facility] [id number] [place] 1762 Aug, [facility] [place] [facility] [address] [facility] [id number] [place] [address]- 0258 Aug, [facility] [place] [facility] [address] [id number] [place] [address]- 2546 Aug, [facility] [address] [id number] [place] [address]- 6904 Aug, [facility] [place] [facility] [address] [id number] [place] [address]- 2546 Aug, [facility] [address] [id number] [place] [address]- 1693 Jun, [facility] [address] [id number] [place] [address]- 7334 Jun, [facility] [address] [id number] [place] [address]- 9231 Jun, [facility] [address] [facility] [id number] [place] [address]- 8493 Jun, [facility] [address] [facility] [id number] [place] [address]- 3228 May, [facility] [address] [id number] [place] [address]- 6375 May, [facility] [address] [id number] [place] [address]- 5306 May, [facility] [address] [facility] [id number] [place] [address]- 7254 May, [facility] [place] [facility] [address] [id number] [place] [address]- 1875 May, [facility] [address] [id number] [place] [address]- 9070 May, [facility] [place] [facility] [address] [id number] [place] [address]- 7167 May, [facility] [place] [facility] [address] [facility] [id number] [place] [address]- 2546 May, [facility] [place] [facility] [address] [id number] [place] [address]- 3947 Mar, [facility] [place] [facility] [address] [id number] [place] [address]- 6616 Mar, [facility] [place] [facility] [address] [id number] [place] [address]- 5190 Mar, [facility] [place] [facility] [address] [id number] [place] [address]- 9646 Mar, [facility] [place] [facility] [address] [id number] [place] [address]- 7581 Mar, [facility] [place] [facility] [address] [id number] [place] [address]- 2983 Mar, [facility] [place] [facility] [address] [id number] [place] [address]- 5530 Mar, [facility] [place] [facility] [address] [id number] [place] [address]- 6050 Mar, [facility] [place] [facility] [address] [id number] [place] [address]- 2143 Mar, [facility] [place] [facility] [address] [id number] [place] [address]- 6669 Mar, [facility] [place] [facility] [address] [id number] [place] [address]- 6984 Mar, [facility] [place] [facility] [address] [id number], [place] [address]- 1249 Mar, [facility] [place] [facility] [address] [id number], [place] [address]- 7034 Feb, [facility] [place] [facility] [address] [id number] [place] [address]- 7894 Feb, [facility] [place] [facility] [address] [id number] [place] [address]- 8737 Feb, [facility] [place] [facility] [address] [id number], [place] [address]- 3549 Feb, [facility] [place] [facility] [address] [id number], [place] [address]- 2365 Feb, [facility] [place] [facility] [address] [id number] [place] [address]- 6530 Feb, [facility] [place] [facility] [address] [id number] [place] [address]- 5059 Jan, [facility] [place] [facility] [address] [id number] [place] [address]- 9667 Jan, [facility] [place] [facility] [address] [id number] [place] [address]- 0221 Jan, [facility] [place] [facility] [address] [id number] [place] [address]- 4158 Jan, [facility] [place] [facility] [address] [id number] [place] [address]- 2096 Jan, [facility] [place] [facility] [address] [id number] [place] [address]- 4293 Jan, [facility] [place] [facility] [address] [id number] [place] [address]- 0732 Jan, [facility] [place] [facility] [address] [id number] [place] [address]- 7668 Jan, [facility] [place] [facility] [address] [id number] [place] [address]- 5231 Dec, [facility] [place] [facility] [address] [id number] [place] [address]- 6798 Dec, [facility] [place] [facility] [address] [id number] [place] [address]- 3773 Dec, [facility] [place] [facility] [address] [id number] [place] [address]- 3767 Dec, [facility] [place] [facility] [address] [id number] [place] [address]- 9328 Dec, [facility] [place] [facility] [address] [id number] [place] [address]- 6605 Dec, [facility] [place] [facility] [address] [id number] [place] [address]- 5045 Dec, [facility] [place] [facility] [address] [id number] [place] [address]- 8853 Dec, [facility] [place] [facility] [address] [id number] [place] [address]- 3642 October, [facility] [place] [facility] [address] [id number] [place] [address]- 8122 October, [facility] [place] [facility] [address] [id number] [place] [address]- 9708 Sep, [facility] [place] [facility] [address] [id number] [place] [address]- 1171 Sep, [facility] [place] [facility] [address] [id number] [place] [address]- 2679 Sep, [facility] [place] [facility] [address] [id number] [place] [address]- 5962 Sep, [facility] [place] [facility] [address] [id number] [place] [address]- 6269 Sep, [facility] [place] [facility] [address] [id number] [place] [address]- 8802 Sep, [facility] [place] [facility] [address] [id number] [place] [address]- 5228 Sep, [facility] [place] [facility] [address] [id number] [place] [address]- 4300 Sep, [facility] [place] [facility] [address] [id number] [place] [address]- 6483 Sep, [facility] [place] [facility] [address] [id number] [place] [address]- 8249 Sep, [facility] [place] [facility] [address] [id number] [place] [address]- 5330 Sep, [facility] [place] [facility] [address] [id number] [place] [address]- 3718 Sep, [facility] [place] [facility] [address] [id number] [place] [address]- 6667 Aug, [facility] [place] [facility] [address] [id number] [place] [address]- 2856 Aug, [facility] [place] [facility] [address] [id number] [place] [address]- 5173 Aug, [facility] [place] [facility] [address] [id number] [place] [address]- 0346 Jun, [facility] [place] [facility] [address] [id number] [place] [address]- 9740 Jun, [facility] [place] [facility] [address] [id number] [place] [address]- 5562 Jun, [facility] [place] [facility] [address] [id number] [place] [address]- 3996 Jun, [facility] [place] [facility] [address] [id number] [place] [address]- 9387 Jun, [facility] [place] [facility] [address] [id number] [place] [address]- 6262 Jun, [facility] [place] [facility] [address] [id number] [place] [address] Jun, [facility] [place] [facility] [address] [id number], [place] [address] Jun, [facility] [place] [facility] [address] [id number], [place] [address] Jun, [facility] [place] [facility] [address] [id number] [place] [address] Jun, [facility] [place] [facility] [address] [id number] [place] [address] May, [facility] [place] [facility] [address] [id number] [place] [address] May, [facility] [place] [facility] [address] [id number] [place] [address] May, [facility] [address] [id number] [place] [address] May, [facility] [place] [facility] [address] [id number] [place] [address] Apr, [facility] [place] [facility] [address] [id number] [place] [address] Apr, [facility] [place] [facility] [address] [id number] [place] [address] Apr, [facility] [place] [facility] [address] [id number] [place] [address] Apr, [facility] [place] [facility] [address] [id number] [place] [address] Apr, [facility] [place] [facility] [address] [id number] [place] [address] Apr, [facility] [place] [facility] [address] [id number] [place] [address] Apr, [facility] [place] [facility] [address] [id number] [place] [address] Apr, [facility] [place] [facility] [address] [id number] [place] [address] Mar, [facility] [place] [facility] [address] [id number] [place] [address] Mar, [facility] [place] [facility] [address] [id number], [place] [address] Mar, [facility] [place] [facility] [address] [id number] [place] [address] Mar, [facility] [place] [facility] [address] [id number] [place] [address] Mar, [facility] [place] [facility] [address] [id number], [place] [address] Feb, [facility] [place] [facility] [address] [id number] [place] [address] 11 Feb, 2013 [facility] [place] [facility] [address] [id number] [place] [address] 05 Feb, 2013 [facility] [place] [facility] [address] [id number] [place] [address] 05 Feb, 2013 [facility] [place] [facility] [address] [id number] [place] [address] 04 Feb, 2013 [facility] [place] [facility] [address] [id number] [place] [address] 30 Jan, 2013 [facility] [place] [facility] [address] [id number] [place] [address] Jan, [facility] [place] [facility] [address] [id number] [place] [address] Nov, [facility] [place] [facility] [address] [id number] [place] [address] Nov, [facility] [place] [facility] [address] [id number] [place] [address] Nov, [facility] [place] [facility] [address] [id number] [place] [address] Nov, [facility] [place] [facility] [address] [id number] [place] [address] October, [facility] [place] [facility] [address] [id number] [place] [address] Sep, [facility] [place] [facility] [address] [id number] [place] [address] 27 Aug, 2012 [facility] [place] [facility] [address] [id number] [place] [address] 26 Aug, 2012 [facility] [place] [facility] [address] [id number] [place] [address] 16 Aug, 2012 [facility] [place] [facility] [address] [id number], [place] [address] Aug, [facility] [place] [facility] [address] [id number] [place] [address] Jul, [facility] [place] [facility] [address] [id number] [place] [address] Jun, [facility] [place] [facility] [address] [id number] [place] [address] Jun, [facility] [place] [facility] [address] [id number], [place] [address] May, [facility] [place] [facility] [address] [id number] [place] [address] May, [facility] [place] [facility] [address] [id number] [id number] Mar, [facility] [place] [facility] [address] [id number] [place] [address] Mar, [facility] [place] [facility] [address] [id number], [place] [address] Mar, [facility] [place] [facility] [address] [id number] [place] [address] Mar, [facility] [place] [facility] [address] [id number] [place] [address] Mar, [facility] [place] [facility] [address] [id number], [place] [address] Mar, [facility] [place] [facility] [address] [id number], [place] [address] Mar, [facility] [place] [facility] [address] [id number] [place] [address] Mar, [facility] [place] [facility] [address] [id number] [place] [address] Mar, [facility] [place] [facility] [address] [id number] [place] [address] Mar, [facility] [place] [facility] [address] [id number] [place] [address] 20 Mar, 2011 [facility] [place] [facility] [address] [id number] [place] [address] 17 Mar, 2011 [facility] [place] [facility] [address] [id number] [place] [address] 17 Mar, 2011 [facility] [place] [facility] [address] [id number] [place] [address] 15 Mar, 2011 [facility] [place] [facility] [address] [id number] [place] [address] 15 Mar, 2011 [facility] [place] [facility] [address] [id number] [place] [address] 15 Mar, 2012 [facility] [place] [facility] [address] [id number] [place] [address] 15 Mar, 2012 [facility] [place] [facility] [address] [id number] [place] [address] Mar, [facility] [place] [facility] [address] [id number] [place] [address] 11 Mar, 2012 [facility] [place] [facility] [address] [id number] [place] [address] 47[address] 08 Mar, 2012 [facility] [place] [facility] [address] [id number] [place] [address] 08 Mar, 2012 [facility] [place] [facility] [address] [id number] [place] [address] 03 Mar, 2012 [facility] [place] [facility] [address] [id number] [place] [address] Mar, [facility] [place] [facility] [address] [id number] [place] [address] 19 Feb, 2011 [facility] [place] [facility] [address] [id number] [place] [address] 18 Sep, 2011 [facility] [place] [facility] [address] [id number] [place] [address] 17 Feb, 2012 [facility] [place] [facility] [address] [id number] [place] [address] 14 Feb, 2012 [facility] [place] [facility] [address] [id number] [place] [address] 14 Feb, 2012 [facility] [place] [facility] [address] [id number] [place] [address] 12 Feb, 2012 [facility] [place] [facility] [address] [id number] [place] [address] 10 Feb, 2012 [facility] [place] [facility] [address] [id number] [place] [address] 31 Jan, 2012 [facility] [place] [facility] [address] [id number] [place] [address] 30 Jan, 2012 [facility] [place] [facility] [address] [id number] [place] [address] 22 Jan, 2012 [facility] [place] [facility] [address] [id number] [place] [address] 20 Jan, 2012 [facility] [place] [facility] [address] [id number] [place] [address] 17 Jan, 2012 [facility] [place] [facility] [address] [id number] [place] [address] 17 Jan, 2012 [facility] [place] [facility] [address] [id number] [place] [address] 17 Jan, 2012 [facility] [place] [facility] [address] [id number] [place] [address]17 16 Jan, 2012 [facility] [place] [facility] [address] [id number] [place] [address] 13 Jan, 2012 [facility] [place] [facility] [address] [id number] [place] [address] 07 Jan, 2012 [facility] [place] [facility] [address] [id number] [place] [address] 26 Dec, 2011 [facility] [place] [facility] [address] [id number] [place] [address] 24 Dec, 2011 [facility] [place] [facility] [address] [id number] [place] [address] 23 Dec, 2011 [facility] [place] [facility] [address] [id number] [place] [address]- [address] 19 Dec, 2011 [facility] [place] [facility] [address] [id number] [place] [address] 18 Dec, 2011 [facility] [place] [facility] [address] [id number] [place] [address] 17 Dec, 2011 [facility] [place] [facility] [address] [id number] [place] [address]- [address] 16 Dec, 2011 [facility] [place] [facility] [address] [id number] [place] [address]- [address] 14 Dec, 2011 [facility] [place] [facility] [address] [id number] [place] [address]- [address] Dec, [facility] [place] [facility] [address] [id number] [place] [address] Dec, [facility] [place] [facility] [address] [id number] [place] [address] Dec, [facility] [place] [facility] [address] [id number] [place] [address] Nov, [facility] [place] [facility] [address] [id number] [place] [address] Nov, [facility] [place] [facility] [address] [id number] [place] [address] Nov, [facility] [place] [facility] [address] [id number] [place] [address] Nov, [facility] [place] [facility] [address] [id number] [place] [address] Nov, [facility] [place] [facility] [address] [id number] [place] [address] Nov, [facility] [place] [facility] [address] [id number] [place] [address] Nov, [facility] [address] [facility] [id number], [place] [address] Nov, [facility] [address] [facility] [id number], [place] [address] Nov, [facility] [address] [facility] [id number], [place] [address] Nov, [facility] [address] [facility] [id number], [place] [address] October, IMMUNIZATIONS No Known Immunizations SOCIAL HISTORY Never Assessed REASON FOR VISIT Xray (walk-in) MHill RT(R) PLAN OF CARE VITAL SIGNS MEDICATIONS Unknown Medications RESULTS No Results PROCEDURES Procedure Date Ordered Result Body Site X-RAY EXAM OF SHOULDER December 05, 2016 INSTRUCTIONS MEDICATIONS ADMINISTERED No [...]
--- OUTSIDE RECORDS SUMMARY | 2018-01-12 08:58 | XMS REPORT ---
Author DIONY Zuluaga [facility] eClinicalWorks Address Unknown Phone Unavailable Care Team Providers Care Documentation Spec Name Role Phone DIONY XIONG CP Unavailable Allergies, Adverse Reactions, Alerts Substance Reaction Event Type Amoxicillin rebound headaches Drug Allergy Problems Problem Type Condition Code Onset Dates Condition Status Problem Major depressive disorder, recurrent episode, moderate F33.1 Active Problem ADD (attention deficit disorder) without hyperactivity F90.0 Active Problem Generalized anxiety disorder F41.1 Active Problem Essential hypertension I10 Active Problem Low back pain M54.5 Active Problem Seizure R56.9 Active Problem Tremor, hereditary, 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 Active Problem Irritable bowel K58.9 Active Problem Hypokalemia E87.6 Active Problem Chronic migraine without aura with status migrainosus, not intractable G43.701 Active Assessment Otitis media, left H66.92 Active Assessment Seizure R56.9 Active Assessment Dysuria 788.1 Active Assessment Tremor, hereditary, 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 Active Assessment Chronic migraine without aura with status migrainosus, not intractable G43.701 Active Assessment Essential hypertension I10 Active Assessment Hypokalemia E87.6 Active Assessment Irritable bowel K58.9 Active Assessment Low back pain M54.5 Active Medications Medication Code System Code Instructions Start Date End Date Status Dosage Amlodipine Besylate [facility] [address]-30 5 MG Orally Once a day 1 tablet Gabapentin [facility] [address]-16 300 MG Orally 2 times a day prn 1 capsule Potassium Chloride ER [facility] [address]-37 10 MEQ Orally every other day 1 tablet Promethazine HCl [facility] [address]-41 25 MG Orally prn nausea 1 tablet as needed Propranolol HCl [facility] [address]-64 20 MG Orally Twice a day 1 tablet Topamax [facility] [address]-28 200 MG Orally Twice a day 1 tablet Keflex [facility] [address]-44 500 MG Orally tid May 19, 2015 May 29, 2015 1 capsule Dicyclomine HCl [facility] [address]-53 20 MG Orally Four times a day 1 tablet Amlodipine Besylate [facility] [address]-03 5 MG Orally Once a day 1 tablet Procedures Procedure Coding System Code Date [facility] NOBLL May 19, 2015 URINALYSIS, AUTO, W/O SCOPE CPT-4 92182 May 19, 2015 Office Visit, Est Pt., Level 4 CPT-4 27549 May 19, 2015 VENIPUNCT, ROUTINE* CPT-4 10539 May 19, 2015 Vital Signs Date/Time: May 19, 2015 Temperature 98.0 F Weight 178.3 lbs Height 65 in BMI 29.67 Index Blood Pressure Diastolic 64 mmHg Blood Pressure Systolic 122 mmHg Cardiac Monitoring Heart Rate 76 bpm Results Name Result Date Reference Range Unit Abnormality Flag ROUTINE VENIPUNCTURE Summary Purpose eClinicalWorks Submission
--- OUTSIDE RECORDS SUMMARY | 2018-01-12 08:58 | XMS REPORT ---
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 Active 24078716 Problem Essential hypertension I10 Active 07591590 Problem Intractable chronic migraine without aura and with status migrainosus G43.711 Active 344485472 Problem Moderate persistent asthma with exacerbation J45.41 Active 988584936 Problem Seizure disorder G40.909 Active 945462936 Problem Other chronic pain G89.29 Active 87544188 Problem Moderate persistent asthma without complication J45.40 Active 469526551 Problem Primary insomnia F51.01 Active 3907159 Problem Abnormal glucose R73.09 Active 913799218 Problem Major depressive disorder, recurrent episode, moderate F33.1 Active 614352906 Problem Tremor, hereditary, 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 Active 348526142 Problem Elevated liver enzymes R74.8 Active 154996398 Problem Irritable bowel K58.9 Active 94739609 Problem Hyperlipidemia LDL goal <100 E78.5 Active 68348320 Problem Chronic migraine without aura with status migrainosus, not intractable G43.701 Active 362325434 ALLERGIES No Information ENCOUNTERS Encounter Location Date Diagnosis [facility] [address] [facility] [id number] [address] October, [facility] [address] [id number] [address] October, Right shoulder pain, unspecified chronicity M25.511 [facility] [address] [facility] [id number] [address] Aug, Elevated liver enzymes R74.8 and Hyperlipidemia LDL goal < 100 E78.5 [facility] [id number] [place] [address] 29023- 7022 Aug, [facility] [id number] [place] [address] 42141- 8780 Jul, [facility] [id number] [place] [address] 25528- 2888 Jul, Intractable chronic migraine without aura and with status migrainosus G43.711 ; Fever, unspecified fever cause R50.9 and Elevated liver enzymes R74.8 [place] [id number] [place] [address] 02836- 5704 Jun, Difficulty urinating R39.198 and Moderate persistent asthma with exacerbation J45.41 [place] [id number] [place] [address] 77998- 9729 Jun, [facility] [id number] [place] [address] 72643- 3807 Jun, Moderate persistent asthma with exacerbation J45.41 [facility] [id number] [place] [address] 13020- 9970 May, Elevated liver enzymes R74.8 and Hyperlipidemia LDL goal < 100 E78.5 [place] [id number] [place] [address] 13394- 9113 May, Elevated lipids E78.5 [facility] [id number] [place] [address] 49431- 5033 Apr, Elevated liver enzymes R74.8 [facility] [id number] [place] [address] 05600- 4512 Apr, Elevated liver enzymes R74.8 [facility] [id number] [place] [address] 84847- 2734 Apr, Superior glenoid labrum lesion of right shoulder, subsequent encounter S43.431D [place] [id number] [place] [address] 70104- 4975 Apr, Hypokalemia E87.6 ; Major depressive disorder, recurrent episode, moderate F33.1 ; Other abnormalities of breathing R06.89 and Dyspnea, unspecified R06.00 [facility] [id number] [place] [address] 25065 -9829 Mar, Moderate persistent asthma without complication J45.40 [facility] [address] [address]- 5213 Mar, Impingement syndrome of right shoulder M75.41 [facility] [id number] [place] [address] 52307- 6510 Jan, [place] [id number] [place] [address] 33475- 8944 Jan, Chronic migraine without aura with status migrainosus, not intractable G43.701 ; Essential hypertension I10 ; Irritable bowel K58.9 ; Primary insomnia F51.01 and Hypokalemia E87.6 [facility] [id number] [place] [address] 63829- 1711 Dec, [facility] [id number] [place] [address] 25859- 0448 Dec, Pain in right shoulder M25.511 [facility] [id number] [place] [address] 32767- 4427 Dec, Essential hypertension I10 [facility] [id number] [place] [address] 06326- 5155 Dec, [facility] [id number] [place] [address] 68287- 1240 Nov, Essential hypertension I10 [place] [id number] [place] [address] 68324- 7497 Nov, Pain in right shoulder M25.511 [facility] [id number] [place] [address] 10058- 1663 Nov, Pain in right shoulder M25.511 [place] [id number] [place] [address] 40211- 4016 October, [place] [id number] [place] [address] 87291- 6253 October, Pain in right shoulder M25.511 [place] [id number] [place] [address] 24478- 9601 Sep, Arm pain, right M79.601 [place] [id number] [place] [address] 79427- 8170 Sep, [place] [address] 88320- 1045 Sep, Abnormal glucose R73.09 and Elevated lipids E78.5 [place] [address] 35221- 1435 Sep, Abnormal glucose R73.09 and Elevated lipids E78.5 [place] [id number] [place] [address] 41499- 8309 Aug, [place] [address] 35326- 0026 Aug, [place] [id number] [place] [address] 30802- 1744 Aug, [place] [id number] [place] [address] 70533- 4590 Aug, 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 ; Hypokalemia E87.6 ; Irritable bowel K58.9 ; Essential hypertension I10 ; Pain in right shoulder M25.511 ; Seizure disorder G40.909 and Screening for lipid disorders Z13.220 [place] [id number] [place] [address] 08389- 0049 28 Jul, 2016 Other chronic pain G89.29 and Pain in right shoulder M25.511 [place] [id number] [place] [address] 04406- 6194 14 Jul, 2016 Biceps muscle strain, right, subsequent encounter S46.111D [facility] [place] [id number] [place] [address] 78811 -0051 08 Jul, 2016 Arm pain, right M79.601 [place] [id number] [place] [address] 80925- 8991 Jun, [place] [address] 19661- 6005 Jun, Acute non-recurrent frontal sinusitis J01.10 [place] [id number] [place] [address] 09029- 3265 May, Generalized abdominal pain R10.84 ; Urinary tract infection without hematuria, site unspecified N39.0 ; Hypokalemia E87.6 ; Essential hypertension I10 ; Screening for lipid disorders Z13.220 ; Seizure R56.9 and Low back pain M54.5 [place] [id number] [place] [address] 14085- 4006 Apr, [facility] [place] [id number] [place] [address] 60393 -0194 Feb, [place] [id number] [place] [address] 20413- 0091 Jan, [place] [id number] [place] [address] 16167- 1416 Dec, 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 ; Hypokalemia E87.6 ; Irritable bowel K58.9 and Nausea R11.0 [facility] [place] [id number] [place] [address] 75316 -6156 18 Dec, 2015 Generalized abdominal pain R10.84 [place] [id number] [place] [address] 34934- 2713 24 Nov, 2015 [facility] [place] [id number] [place] [address] 83027 -5831 14 Aug, 2015 Acute bronchitis J20.9 [place] [id number] [place] [address] 76958- 5454 14 Aug, 2015 [place] [address] 43286- 1769 08 Aug, 2015 Low back pain M54.5 ; Hypokalemia E87.6 ; Chronic migraine without aura with status migrainosus, not intractable G43.701 ; Tremor, hereditary, 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 ; Irritable bowel K58.9 ; Essential hypertension I10 and Seizure R56.9 [place] [address] 78122- 8588 07 Aug, 2015 [place] [address] 17387- 3122 09 Jul, 2015 [place] [address] 21784- 1258 03 Jul, 2015 Low back pain M54.5 ; Hypokalemia E87.6 ; Chronic migraine without aura with status migrainosus, not intractable G43.701 ; Tremor, hereditary, 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 ; Irritable bowel K58.9 ; Essential hypertension I10 and Seizure R56.9 [place] [id number] [place] [address] 84704- 5541 Jun, Hypokalemia E87.6 [place] [id number] [place] [address] 07089- 4102 Jun, ADD (attention deficit disorder) without hyperactivity F90.0 ; Generalized anxiety disorder F41.1 and Major depressive disorder, recurrent episode, moderate F33.1 [place] [id number] [place] [address] 76543- 3445 13 Jun, 2015 Low back pain M54.5 ; Hypokalemia E87.6 ; Chronic migraine without aura with status migrainosus, not intractable G43.701 ; Tremor, hereditary, 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 ; Irritable bowel K58.9 ; Essential hypertension I10 and Seizure R56.9 [place] [id number] [place] [address] 99488- 3247 Jun, [place] [address] 31075- 2303 May, [place] [id number] [place] [address] 09151- 1308 May, Low back pain M54.5 ; Hypokalemia E87.6 ; Chronic migraine without aura with status migrainosus, not intractable G43.701 ; Tremor, hereditary, 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 ; Irritable bowel K58.9 ; Essential hypertension I10 ; Seizure R56.9 and Tinea capitis B35.0 [place] [id number] [place] [address] 26429- 0598 May, Low back pain M54.5 ; Hypokalemia E87.6 ; Chronic migraine without aura with status migrainosus, not intractable G43.701 ; Tremor, hereditary, 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 ; Irritable bowel K58.9 ; Essential hypertension I10 ; Seizure R56.9 ; Otitis media, left H66.92 and Dysuria 788.1 [place] [id number] [place] [address] 64956- 9346 14 May, 2015 Tooth pain K08.8 [place] [id number] [place] [address] 19070- 4030 May, [place] [id number] [place] [address] 02350- 8164 May, Low back pain M54.5 ; Hypokalemia E87.6 ; Chronic migraine without aura with status migrainosus, not intractable G43.701 ; Tremor, hereditary, 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 ; Irritable bowel K58.9 and Essential hypertension I10 [place] [id number] [place] [address] 76289- 1527 Apr, Low back pain M54.5 ; Hypokalemia E87.6 ; Chronic migraine without aura with status migrainosus, not intractable G43.701 ; Tremor, hereditary, 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 and Irritable bowel K58.9 [facility] [id number] [place] [address] 05128- 8899 Apr, Low back pain M54.5 [facility] [id number] [place] [address] 08455- 4921 Mar, [facility] [address] 12274- 4224 Mar, Irritable bowel syndrome with diarrhea K58.0 [facility] [id number] [place] [address] 95299- 1025 Mar, [facility] [address] 63792- 2192 Feb, [place] [address] 02277- 8107 Feb, [facility] [address] 96437- 0684 Feb, Irritable bowel syndrome 564.1 ; Lumbago 724.2 and Cervical pain (neck) 723.1 [place] [id number] [place] [address] 10633- 1566 Dec, Major depressive disorder, recurrent episode, moderate 296.32 and Generalized anxiety disorder 300.02 [place] [id number] [place] [address] 77732- 4473 Nov, [facility] [id number] [place] [address] 12573- 3512 Nov, Major depressive disorder, recurrent episode, moderate 296.32 [place] [address] 18767- 6150 Nov, Constipation 564.00 ; Nausea & vomiting 787.01 and Abdominal pain 789.00 [place] [id number] [place] [address] 68902- 6187 Nov, [place] [address] [facility] [id number] [place] [address]- 6798 October, [facility] [address] [facility] [id number] [place] [address]- 4139 October, [facility] [place] [facility] [address] [facility] [id number] [place] [address]- 0895 October, [facility] [address] [facility] [id number] [place] [address], [place] [address]- 7061 October, [facility] [place] [facility] [address] [facility] [id number] [place] [address]- 8520 Sep, Dysuria 788.1 [facility] [address] [facility] [id number] [place] [address], [place] [address]- 1096 Sep, [facility] [id number] [place] [address]- 8927 Sep, [facility] [address] [place] [address]- 7707 Sep, [facility] [place] [facility] [id number] [place] [address]- 7854 Sep, [facility] [address] [place] [address]- 4471 Aug, [facility] [place] [facility] [address] [place] [address]- 3712 Aug, [facility] [place] [facility] [address] [id number] [place] [address]- 2343 Aug, [facility] [place] [facility] [address] [facility] [id number] [place] [address]- 6588 Aug, [facility] [place] [facility] [address] [facility] [id number] [place] [address]- 2057 Aug, [facility] [place] [facility] [address] [facility] [id number] [place] 2211 Aug, [facility] [place] [facility] [id number] [place] [address]- 2546 Aug, [facility] [place] [facility] [address] [id number] [place] [address]- 6701 Aug, [facility] [place] [facility] [address] [id number] [place] [address]- 9696 Aug, [facility] [place] [facility] [address] [id number] [place] [address]- 0919 Aug, [facility] [place] [facility] [address] [id number] [place] [address]- 8386 Jun, [facility] [place] [facility] [address] [id number] [place] [address]- 4099 Jun, [facility] [place] [facility] [address] [id number] [place] [address]- 6816 Jun, [facility] [place] [facility] [address] [id number] [place] [address]- 2476 Jun, [facility] [place] [facility] [address] [id number] [place] [address]- 6219 May, [facility] [place] [facility] [address] [id number] [place] 5965 May, [facility] [place] [facility] [address] [id number] [place] [address]- 7667 May, [facility] [place] [facility] [address] [id number] [place] [address]- 3137 May, [facility] [place] [facility] [address] [id number] [place] [address]- 3012 May, [facility] [place] [facility] [address] [id number] [place] [address]- 3858 May, [facility] [place] [facility] [address] [id number] [place] [address]- 1304 May, [facility] [place] [facility] [address] [id number] [place] [address]- 6881 May, [facility] [place] [facility] [address] [id number] [place] [address]- 4077 Mar, [facility] [place] [facility] [address] [id number] [place] [address]- 9123 Mar, [facility] [place] [facility] [address] [id number] [place] [address]- 0234 Mar, [facility] [place] [facility] [address] [id number] [place] [address]- 2001 Mar, [facility] [place] [facility] [address] [id number] [place] [address]- 1498 Mar, [facility] [place] [facility] [address] [id number] [place] [address]- 6893 Mar, [facility] [place] [facility] [address] [id number] [place] [address]- 2406 Mar, [facility] [place] [facility] [address] [id number] [place] [address]- 9391 Mar, [facility] [place] [facility] [address] [id number] [place] [address]- 1189 Mar, [facility] [place] [facility] [address] [id number] [place] [address]- 5022 Mar, [facility] [place] [facility] [address] [id number] [place] [address]- 3631 Mar, [facility] [place] [facility] [address] [id number] [place] [address]- 9017 Mar, [facility] [place] [facility] [address] [id number] [place] [address]- 5306 Feb, [facility] [place] [facility] [address] [id number] [place] [address]- 5589 24 Feb, 2014 [facility] [place] [facility] [address] [id number] [place] [address]- 6676 Feb, [facility] [place] [facility] [address] [id number] [place] [address]- 4402 Feb, [facility] [place] [facility] [address] [id number] [place] [address]- 4967 Feb, [facility] [place] [facility] [address] [id number] [place] [address]- 9860 Feb, [facility] [place] [facility] [address] [id number] [place] [address]- 9978 Jan, [facility] [place] [facility] [address] [id number] [place] [address]- 6416 Jan, [facility] [place] [facility] [address] [id number] [place] [address]- 4635 Jan, [facility] [place] [facility] [address] [id number] [place] [address]- 5361 Jan, [facility] [place] [facility] [address] [id number] [place] [address]- 9506 Jan, [facility] [place] [facility] [address] [id number] [place] [address]- 0818 Jan, [facility] [place] [facility] [address] [id number] [place] [address]- 0647 Jan, [facility] [place] [facility] [address] [id number] [place] [address]- 4209 Jan, [facility] [place] [facility] [address] [id number] [place] [address]- 3363 Dec, [facility] [place] [facility] [address] [id number] [place] [address]- 5545 Dec, [facility] [place] [facility] [address] [id number] [place] [address]- 0183 Dec, [facility] [place] [facility] [address] [id number] [place] [address]- 9056 Dec, [facility] [place] [facility] [address] [id number] [place] [address]- 1567 Dec, [facility] [place] [facility] [address] [id number] [place] [address]- 3713 Dec, [facility] [place] [facility] [address] [id number] [place] [address]- 2627 Dec, [facility] [place] [facility] [address] [id number] [place] [address]- 8423 Dec, [facility] [place] [facility] [address] [id number] [place] [address]- 1051 October, [facility] [place] [facility] [address] [id number] [place] [address]- 2132 October, [facility] [place] [facility] [address] [id number] [place] [address]- 4886 Sep, [facility] [place] [facility] [address] [id number] [place] [address]- 3397 Sep, [facility] [place] [facility] [address] [id number] [place] [address]- 6384 Sep, [facility] [place] [facility] [address] [id number] [place] [address]- 0989 Sep, [facility] [place] [facility] [address] [id number] [place] [address]- 5724 Sep, [facility] [place] [facility] [address] [id number] [place] [address]- 7577 Sep, [facility] [place] [facility] [address] [id number] [place] [address]- 0746 Sep, [facility] [place] [facility] [address] [id number] [place] [address]- 9076 Sep, [facility] [place] [facility] [address] [id number] [place] [address]- 5708 Sep, [facility] [place] [facility] [address] [id number] [place] [address]- 2481 Sep, [facility] [place] [facility] [address] [id number] [place] [address]- 3166 Sep, [facility] [place] [facility] [address] [id number] [place] [address]- 7976 Sep, [facility] [place] [facility] [address] [id number] [place] [address]- 4188 Aug, [facility] [place] [facility] [address] [id number] [place] [address] 2546 Aug, [facility] [place] [facility] [address] [id number] [place] [address] Aug, [facility] [place] [facility] [address] [id number] [place] [address] Jun, [facility] [place] [facility] [address] [id number] [place] [address] Jun, [facility] [place] [facility] [address] [id number] [place] [address] Jun, [facility] [place] [facility] [address] [id number] [place] [address] Jun, [facility] [place] [facility] [address] [id number] [place] [address] Jun, [facility] [place] [facility] [address] [id number] [place] [address] Jun, [facility] [place] [facility] [address] [id number] [place] [address] Jun, [facility] [place] [facility] [address] [id number] [place] [address] Jun, [facility] [place] [facility] [address] [id number] [place] [address] Jun, [facility] [place] [facility] [address] [id number] [place] [address] Jun, [facility] [place] [facility] [address] [id number] [place] [address] May, [facility] [place] [facility] [address] [id number] [place] [address] May, [facility] [place] [facility] [address] [id number] [place] [address] May, [facility] [place] [facility] [address] [id number] [place] [address] May, [facility] [place] [facility] [address] [id number] [place] [address] Apr, [facility] [place] [facility] [address] [id number] [place] [address] Apr, [facility] [place] [facility] [address] [id number] [place] [address] Apr, [facility] [place] [facility] [address] [id number] [place] [address] Apr, [facility] [place] [facility] [address] [id number] [place] [address] Apr, [facility] [place] [facility] [address] [id number] [address] Apr, [facility] [place] [facility] [address] [id number] [place] [address] Apr, [facility] [place] [facility] [address] [id number] [address] Apr, [facility] [place] [facility] [address] [id number] [place] [address] Mar, [facility] [place] [facility] [address] [id number] [place] [address] Mar, [facility] [place] [facility] [address] [id number] [address] Mar, [facility] [place] [facility] [address] [id number] [place] [address] Mar, [facility] [place] [facility] [address] [facility] [id number] [address] Mar, [facility] [place] [facility] [address] [id number] [place] [address] 23 Feb, 2012 [facility] [address] [id number] [place] [address] 11 Feb, 2013 [facility] [place] [facility] [address] [id number] [place] [address] 05 Feb, 2013 [facility] [address] [id number] [place] [address] 05 Feb, 2012 [facility] [place] [facility] [address] [id number] [place] [address] 04 Feb, 2013 [facility] [place] [facility] [address] [id number] [place] [address] 30 Jan, 2013 [facility] [place] [facility] [address] [id number] [place] [address] Jan, [facility] [address] [id number] [place] [address] Nov, [facility] [place] [facility] [address] [id number] [place] [address] Nov, [facility] [place] [facility] [address] [id number] [place] [address] Nov, [facility] [place] [facility] [address] [id number] [place] [address] Nov, [facility] [place] [facility] [address] [id number] [place] [address] October, [facility] [place] [facility] [address] [id number] [place] [address] Sep, [facility] [place] [facility] [address] [id number] [place] [address] Aug, [facility] [place] [facility] [address] [id number] [place] [address] Aug, [facility] [place] [facility] [address] [id number] [place] [address] Aug, [facility] [place] [facility] [address] [id number] [place] [address] Aug, [facility] [place] [facility] [address] [id number] [place] [address] Jul, [facility] [place] [facility] [address] [id number] [place] [address] Jun, [facility] [place] [facility] [address] [id number] [place] [address] Jun, [facility] [place] [facility] [address] [id number] [place] [address] May, [facility] [place] [facility] [address] [id number] [place] [address] May, [facility] [place] [facility] [address] [id number] [place] [id number] Mar, [facility] [place] [facility] [address] [id number] [place] [address] Mar, [facility] [place] [facility] [address] [id number] [place] [address] Mar, [facility] [place] [facility] [address] [id number] [place] [address] Mar, [facility] [place] [facility] [address] [id number] [place] [address] Mar, [facility] [place] [facility] [address] [id number] [address] Mar, [facility] [place] [facility] [address] [id number] [place] [address] Mar, [facility] [place] [facility] [address] [id number] [place] [address] Mar, [facility] [place] [facility] [address] [id number] [place] [address] Mar, [facility] [place] [facility] [address] [id number] [address] 20 Mar, 2012 [facility] [place] [facility] [address] [id number] [place] [address] 20 Mar, 2011 [facility] [place] [facility] [address] [id number] [place] [address] 17 Mar, 2011 [facility] [place] [facility] [address] [id number] [place] [address] 17 Mar, 2012 [facility] [place] [facility] [address] [id number] [place] [address] 15 Mar, 2012 [facility] [place] [facility] [address] [id number] [place] [address] 15 Mar, 2012 [facility] [place] [facility] [address] [id number] [place] [address] 15 Mar, 2012 [facility] [place] [facility] [address] [id number] [place] [address] 15 Mar, 2012 [facility] [place] [facility] [address] [id number] [address] Mar, [facility] [place] [facility] [address] [id number] [place] [address] Mar, [facility] [place] [facility] [address] [id number] [place] [address] 08 Mar, 2012 [facility] [place] [facility] [address] [id number] [place] [address] 08 Mar, 2012 [facility] [place] [facility] [address] [id number] [place] [address] Mar, [facility] [place] [facility] [address] [id number] [place] [address] Mar, [facility] [place] [facility] [address] [facility] [id number] [place] [address] 19 Feb, 2012 [facility] [place] [facility] [address] [id number] [place] [address] 18 Sep2011 [facility] [place] [facility] [address] [id number] [place] [address] 17 Feb, 2011 [facility] [place] [facility] [address] [id number] [place] [address] 14 Feb, 2011 [facility] [place] [facility] [address] [id number] [place] [address]46 14 Feb, 2012 [facility] [place] [facility] [address] [id number] [place] [address] 12 Feb, 2012 [facility] [place] [facility] [address] [id number] [place] [address] 10 Feb, 2012 [facility] [place] [facility] [address] [id number] [place] [address] 31 Jan, 2012 [facility] [place] [facility] [address] [id number] [place] [address] 270[address] 30 Jan, 2012 [facility] [place] [facility] [address] [id number] [place] [address] 34[address] 22 Jan, 2012 [facility] [place] [facility] [address] [id number] [place] [address] 20 Jan, 2012 [facility] [place] [facility] [address] [id number] [place] [address] 17 Jan, 2012 [facility] [address] [id number] [place] [address] 17 Jan, 2012 [facility] [place] [facility] [address] [id number] [place] [address] 2540 17 Jan, 2012 [facility] [place] [facility] [address] [id number] [place] [address] 16 Jan, 2012 [facility] [place] [facility] [address] [id number] [place] [address] 13 Jan, 2012 [facility] [place] [facility] [address] [id number] [place] [address] 07 Jan, 2012 [facility] [place] [facility] [address] [id number] [place] [address] 1381 26 Dec, 2011 [facility] [place] [facility] [address] [id number] [place] [address] 24 Dec, 2011 [facility] [place] [facility] [address] [id number] [place] [address] 8266 23 Dec, 2011 [facility] [place] [facility] [address] [id number] [place] [address] 77[address] 19 Dec, 2011 [facility] [place] [facility] [address] [id number] [place] [address] 18 Dec, 2011 [facility] [place] [facility] [address] [id number] [place] [address] 3987 17 Dec, 2011 [facility] [place] [facility] [address] [id number] [place] [address] 8850 16 Dec, 2011 [facility] [place] [facility] [address] [id number] [place] [address] 14 Dec, 2011 [facility] [place] [facility] [address] [id number] [place] [address] Dec, [facility] [place] [facility] [address] [id number] [place] [address] Dec, [facility] [place] [facility] [address] [id number] [place] [address] 34[address] Dec, [facility] [place] [facility] [address] [id number] [place] [address] Nov, [facility] [place] [facility] [address] [id number] [place] [address] Nov, [facility] [place] [facility] [address] [id number] [place] [address] 85[address] Nov, [facility] [place] [facility] [address] [id number] [place] [address] 97[address] Nov, [facility] [place] [facility] [address] [id number] [place] [address] 5[address] Nov, [facility] [place] [facility] [address] [id number] [place] [id number] Nov, [facility] [address] [facility] [id number] [place] [address] Nov, [facility] [address] [facility] [id number] [place] Nov, [facility] [address] [facility] [id number] [place] [address] Nov, [facility] [address] [facility] [id number] [place] [address] 05 Nov, 2011 [facility] [address] [facility] [id number] [place] [address] October, IMMUNIZATIONS No Known Immunizations SOCIAL HISTORY Never Assessed REASON FOR VISIT Lab (walk-in)--[facility] PLAN OF CARE VITAL SIGNS MEDICATIONS Unknown Medications RESULTS No Results PROCEDURES Procedure Date Ordered Result Body Site LAB NOT BILLED BY [facility] May 03, 2017 FELICE, ROUTINE* May 03, 2017 INSTRUCTIONS MEDICATIONS ADMINISTERED No Known [...]
--- OUTSIDE RECORDS SUMMARY | 2018-01-12 08:59 | XMS REPORT ---
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 Active 58833441 Problem Essential hypertension I10 Active 39217992 Problem Intractable chronic migraine without aura and with status migrainosus G43.711 Active 472907215 Problem Moderate persistent asthma with exacerbation J45.41 Active 921999767 Problem Seizure disorder G40.909 Active 260896940 Problem Other chronic pain G89.29 Active 94629095 Problem Moderate persistent asthma without complication J45.40 Active 213119260 Problem Primary insomnia F51.01 Active 5867201 Problem Abnormal glucose R73.09 Active 538342470 Problem Major depressive disorder, recurrent episode, moderate F33.1 Active 236175931 Problem Tremor, hereditary, 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 Active 664385932 Problem Elevated liver enzymes R74.8 Active 040201525 Problem Irritable bowel K58.9 Active 00992774 Problem Hyperlipidemia LDL goal <100 E78.5 Active 88115572 Problem Chronic migraine without aura with status migrainosus, not intractable G43.701 Active 097628280 ALLERGIES No Information ENCOUNTERS Encounter Location Date Diagnosis [facility] [address] [facility] [id number] [address] October, [facility] [address] [id number] [address] October, Right shoulder pain, unspecified chronicity M25.511 [facility] [address] [facility] [id number], [place] [address] Aug, Elevated liver enzymes R74.8 and Hyperlipidemia LDL goal < 100 E78.5 [facility] [id number] [place] [address] 77161- 3200 Aug, [facility] [id number] [place] [address] 63120- 8646 Jul, [facility] [id number] [place] [address] 44237- 1776 Jul, Intractable chronic migraine without aura and with status migrainosus G43.711 ; Fever, unspecified fever cause R50.9 and Elevated liver enzymes R74.8 [place] [id number] [place] [address] 23093- 5315 Jun, Difficulty urinating R39.198 and Moderate persistent asthma with exacerbation J45.41 [place] [id number] [place] [address] 33944- 1800 Jun, [facility] [id number] [place] [address] 15209- 0400 Jun, Moderate persistent asthma with exacerbation J45.41 [facility] [id number] [place] [address] 66315- 4622 May, Elevated liver enzymes R74.8 and Hyperlipidemia LDL goal < 100 E78.5 [place] [id number] [place] [address] 81465- 1223 May, Elevated lipids E78.5 [facility] [id number] [place] [address] 45101- 0429 Apr, Elevated liver enzymes R74.8 [facility] [id number] [place] [address] 84189- 6663 Apr, Elevated liver enzymes R74.8 [facility] [id number] [place] [address] 67091- 4599 Apr, Superior glenoid labrum lesion of right shoulder, subsequent encounter S43.431D [place] [id number] [place] [address] 40480- 4717 Apr, Hypokalemia E87.6 ; Major depressive disorder, recurrent episode, moderate F33.1 ; Other abnormalities of breathing R06.89 and Dyspnea, unspecified R06.00 [facility] [id number] [place] [address] 64217 -6089 Mar, Moderate persistent asthma without complication J45.40 [facility] [address] [address]602- 1738 Mar, Impingement syndrome of right shoulder M75.41 [facility] [id number] [place] [address] 34344- 6391 Jan, [place] [id number] [place] [address] 44904- 5116 Jan, Chronic migraine without aura with status migrainosus, not intractable G43.701 ; Essential hypertension I10 ; Irritable bowel K58.9 ; Primary insomnia F51.01 and Hypokalemia E87.6 [facility] [id number] [place] [address] 84365- 5906 Dec, [facility] [id number] [place] [address] 67942- 6545 Dec, Pain in right shoulder M25.511 [facility] [id number] [place] [address] 63387- 6999 Dec, Essential hypertension I10 [facility] [id number] [place] [address] 02516- 9504 Dec, [facility] [id number] [place] [address] 80013- 0445 Nov, Essential hypertension I10 [place] [id number] [place] [address] 57940- 8375 Nov, Pain in right shoulder M25.511 [facility] [id number] [place] [address] 35732- 0649 Nov, Pain in right shoulder M25.511 [place] [id number] [place] [address] 12275- 3182 October, [place] [id number] [place] [address] 47168- 2622 October, Pain in right shoulder M25.511 [place] [id number] [place] [address] 63755- 3059 Sep, Arm pain, right M79.601 [place] [id number] [place] [address] 97289- 9380 Sep, [place] [address] 28423- 2090 Sep, Abnormal glucose R73.09 and Elevated lipids E78.5 [place] [id number] [place] [address] 59418- 7176 Sep, Abnormal glucose R73.09 and Elevated lipids E78.5 [place] [id number] [place] [address] 39786- 1966 Aug, [place] [address] 24521- 2562 Aug, [place] [id number] [place] [address] 90316- 7015 Aug, [place] [id number] [place] [address] 96442- 2683 Aug, 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 ; Hypokalemia E87.6 ; Irritable bowel K58.9 ; Essential hypertension I10 ; Pain in right shoulder M25.511 ; Screening for lipid disorders Z13.220 and Seizure disorder G40.909 [place] [id number] [place] [address] 95755- 4613 28 Jul, 2016 Other chronic pain G89.29 and Pain in right shoulder M25.511 [place] [id number] [place] [address] 79643- 8812 14 Jul, 2016 Biceps muscle strain, right, subsequent encounter S46.111D [facility] [place] [id number] [place] [address] 59661 -5031 08 Jul, 2016 Arm pain, right M79.601 [place] [id number] [place] [address] 99124- 2635 Jun, [place] [address] 56930- 9793 Jun, Acute non-recurrent frontal sinusitis J01.10 [place] [id number] [place] [address] 07305- 6886 May, Generalized abdominal pain R10.84 ; Urinary tract infection without hematuria, site unspecified N39.0 ; Hypokalemia E87.6 ; Essential hypertension I10 ; Screening for lipid disorders Z13.220 ; Seizure R56.9 and Low back pain M54.5 [place] [id number] [place] [address] 17153- 7387 Apr, [facility] [place] [id number] [place] [address] 25736 -2591 Feb, [place] [id number] [place] [address] 87055- 5312 Jan, [place] [id number] [place] [address] 64429- 6535 Dec, 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 ; Hypokalemia E87.6 ; Irritable bowel K58.9 and Nausea R11.0 [facility] [place] [id number] [place] [address] 53756 -6207 18 Dec, 2015 Generalized abdominal pain R10.84 [place] [id number] [place] [address] 26435- 1787 24 Nov, 2015 [facility] [place] [id number] [place] [address] 31540 -7388 14 Aug, 2015 Acute bronchitis J20.9 [place] [id number] [place] [address] 36567- 8995 14 Aug, 2015 [place] [address] 80345- 1305 08 Aug, 2015 Low back pain M54.5 ; Hypokalemia E87.6 ; Chronic migraine without aura with status migrainosus, not intractable G43.701 ; Tremor, hereditary, 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 ; Irritable bowel K58.9 ; Essential hypertension I10 and Seizure R56.9 [place] [address] 84870- 4512 07 Aug, 2015 [place] [address] 76096- 3222 09 Jul, 2015 [place] [address] 10669- 6329 03 Jul, 2015 Low back pain M54.5 ; Hypokalemia E87.6 ; Chronic migraine without aura with status migrainosus, not intractable G43.701 ; Tremor, hereditary, 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 ; Irritable bowel K58.9 ; Essential hypertension I10 and Seizure R56.9 [place] [id number] [place] [address] 10720- 0337 Jun, Hypokalemia E87.6 [place] [id number] [place] [address] 72956- 0762 Jun, ADD (attention deficit disorder) without hyperactivity F90.0 ; Generalized anxiety disorder F41.1 and Major depressive disorder, recurrent episode, moderate F33.1 [place] [id number] [place] [address] 41754- 9919 13 Jun, 2015 Low back pain M54.5 ; Hypokalemia E87.6 ; Chronic migraine without aura with status migrainosus, not intractable G43.701 ; Tremor, hereditary, 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 ; Irritable bowel K58.9 ; Essential hypertension I10 and Seizure R56.9 [place] [id number] [place] [address] 84887- 0791 Jun, [place] [address] 26447- 4660 May, [place] [id number] [place] [address] 70103- 7891 May, Low back pain M54.5 ; Hypokalemia E87.6 ; Chronic migraine without aura with status migrainosus, not intractable G43.701 ; Tremor, hereditary, 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 ; Irritable bowel K58.9 ; Essential hypertension I10 ; Seizure R56.9 and Tinea capitis B35.0 [place] [id number] [place] [address] 65100- 4595 May, Low back pain M54.5 ; Hypokalemia E87.6 ; Chronic migraine without aura with status migrainosus, not intractable G43.701 ; Tremor, hereditary, 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 ; Irritable bowel K58.9 ; Essential hypertension I10 ; Seizure R56.9 ; Dysuria 788.1 and Otitis media, left H66.92 [place] [id number] [place] [address] 54741- 7889 14 May, 2015 Tooth pain K08.8 [place] [id number] [place] [address] 57153- 5753 May, [place] [id number] [place] [address] 70145- 8926 May, Low back pain M54.5 ; Hypokalemia E87.6 ; Chronic migraine without aura with status migrainosus, not intractable G43.701 ; Tremor, hereditary, 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 ; Irritable bowel K58.9 and Essential hypertension I10 [place] [id number] [place] [address] 33049- 1217 Apr, Low back pain M54.5 ; Hypokalemia E87.6 ; Chronic migraine without aura with status migrainosus, not intractable G43.701 ; Tremor, hereditary, 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 and Irritable bowel K58.9 [facility] [id number] [place] [address] 80700- 9172 Apr, Low back pain M54.5 [facility] [id number] [place] [address] 58190- 1041 Mar, [facility] [address] 42851- 4642 Mar, Irritable bowel syndrome with diarrhea K58.0 [facility] [id number] [place] [address] 90516- 1759 Mar, [facility] [address] 65568- 9482 Feb, [place] [address] 30604- 7993 Feb, [facility] [address] 92845- 9036 Feb, Irritable bowel syndrome 564.1 ; Lumbago 724.2 and Cervical pain (neck) 723.1 [place] [id number] [place] [address] 18297- 4179 Dec, Major depressive disorder, recurrent episode, moderate 296.32 and Generalized anxiety disorder 300.02 [place] [id number] [place] [address] 68280- 2300 Nov, [facility] [id number] [place] [address] 08319- 1400 Nov, Major depressive disorder, recurrent episode, moderate 296.32 [place] [address] 22171- 7433 Nov, Constipation 564.00 ; Nausea & vomiting 787.01 and Abdominal pain 789.00 [place] [id number] [place] [address] 35791- 7050 Nov, [place] [address] [facility] [id number] [place] [address]- 2641 October, [facility] [address] [facility] [id number] [place] [address]- 3923 October, [facility] [place] [facility] [address] [facility] [id number] [place] [address]- 0343 October, [facility] [address] [facility] [id number] [place] [address], [place] [address]- 6116 October, [facility] [place] [facility] [address] [facility] [id number] [place] [address]- 9972 Sep, Dysuria 788.1 [facility] [address] [facility] [id number] [place] [address], [place] [address]- 8816 Sep, [facility] [id number] [place] [address]- 3053 Sep, [facility] [address] [place] [address]- 9358 Sep, [facility] [place] [facility] [id number] [place] [address]- 3750 Sep, [facility] [address] [place] [address]- 2433 Aug, [facility] [place] [facility] [address] [place] [address]- 8192 Aug, [facility] [place] [facility] [address] [id number] [place] [address]- 5799 Aug, [facility] [place] [facility] [address] [facility] [id number] [place] [address]- 7693 Aug, [facility] [place] [facility] [address] [facility] [id number] [place] [address]- 0370 Aug, [facility] [place] [facility] [address] [facility] [id number] [place] 6977 Aug, [facility] [place] [facility] [id number] [place] [address]- 2546 Aug, [facility] [place] [facility] [address] [id number] [place] [address]- 6768 Aug, [facility] [place] [facility] [address] [id number] [place] [address]- 0136 Aug, [facility] [place] [facility] [address] [id number] [place] [address]- 0844 Aug, [facility] [place] [facility] [address] [id number] [place] [address]- 0034 Jun, [facility] [place] [facility] [address] [id number] [place] [address]- 3884 Jun, [facility] [place] [facility] [address] [id number] [place] [address]- 9933 Jun, [facility] [place] [facility] [address] [id number] [place] [address]- 0776 Jun, [facility] [place] [facility] [address] [id number] [place] [address]- 9873 May, [facility] [place] [facility] [address] [id number] [place] 2122 May, [facility] [place] [facility] [address] [id number] [place] [address]- 2233 May, [facility] [place] [facility] [address] [id number] [place] [address]- 6334 May, [facility] [place] [facility] [address] [id number] [place] [address]- 8917 May, [facility] [place] [facility] [address] [id number] [place] [address]- 1731 May, [facility] [place] [facility] [address] [id number] [place] [address]- 7613 May, [facility] [place] [facility] [address] [id number] [place] [address]- 6991 May, [facility] [place] [facility] [address] [id number] [place] [address]- 4766 Mar, [facility] [place] [facility] [address] [id number] [place] [address]- 1837 Mar, [facility] [place] [facility] [address] [id number] [place] [address]- 2532 Mar, [facility] [place] [facility] [address] [id number] [place] [address]- 9115 Mar, [facility] [place] [facility] [address] [id number] [place] [address]- 3322 Mar, [facility] [place] [facility] [address] [id number] [place] [address]- 1249 Mar, [facility] [place] [facility] [address] [id number] [place] [address]- 1845 Mar, [facility] [place] [facility] [address] [id number] [place] [address]- 1363 Mar, [facility] [place] [facility] [address] [id number] [place] [address]- 5634 Mar, [facility] [place] [facility] [address] [id number] [place] [address]- 5780 Mar, [facility] [place] [facility] [address] [id number] [place] [address]- 2360 Mar, [facility] [place] [facility] [address] [id number] [place] [address]- 8130 Mar, [facility] [place] [facility] [address] [id number] [place] [address]- 6460 Feb, [facility] [place] [facility] [address] [id number] [place] [address]- 2132 24 Feb, 2014 [facility] [place] [facility] [address] [id number] [place] [address]- 0543 Feb, [facility] [place] [facility] [address] [id number] [place] [address]- 5277 Feb, [facility] [place] [facility] [address] [id number] [place] [address]- 4512 Feb, [facility] [place] [facility] [address] [id number] [place] [address]- 4795 Feb, [facility] [place] [facility] [address] [id number] [place] [address]- 9617 Jan, [facility] [place] [facility] [address] [id number] [place] [address]- 1856 Jan, [facility] [place] [facility] [address] [id number] [place] [address]- 1057 Jan, [facility] [place] [facility] [address] [id number] [place] [address]- 4656 Jan, [facility] [place] [facility] [address] [id number] [place] [address]- 5274 Jan, [facility] [place] [facility] [address] [id number] [place] [address]- 4756 Jan, [facility] [place] [facility] [address] [id number] [place] [address]- 7038 Jan, [facility] [place] [facility] [address] [id number] [place] [address]- 8921 Jan, [facility] [place] [facility] [address] [id number] [place] [address]- 1732 Dec, [facility] [place] [facility] [address] [id number] [place] [address]- 0034 Dec, [facility] [place] [facility] [address] [id number] [place] [address]- 1066 Dec, [facility] [place] [facility] [address] [id number] [place] [address]- 2424 Dec, [facility] [place] [facility] [address] [id number] [place] [address]- 7290 Dec, [facility] [place] [facility] [address] [id number] [place] [address]- 6179 Dec, [facility] [place] [facility] [address] [id number] [place] [address]- 7459 Dec, [facility] [place] [facility] [address] [id number] [place] [address]- 4966 Dec, [facility] [place] [facility] [address] [id number] [place] [address]- 0754 October, [facility] [place] [facility] [address] [id number] [place] [address]- 1350 October, [facility] [place] [facility] [address] [id number] [place] [address]- 4833 Sep, [facility] [place] [facility] [address] [id number] [place] [address]- 5486 Sep, [facility] [place] [facility] [address] [id number] [place] [address]- 9452 Sep, [facility] [place] [facility] [address] [id number] [place] [address]- 7556 Sep, [facility] [place] [facility] [address] [id number] [place] [address] Sep, [facility] [place] [facility] [address] [id number] [place] [address] Sep, [facility] [place] [facility] [address] [id number] [place] [address] Sep, [facility] [place] [facility] [address] [id number] [place] [address] Sep, [facility] [place] [facility] [address] [id number] [place] [address] Sep, [facility] [place] [facility] [address] [id number] [place] [address] Sep, [facility] [place] [facility] [address] [id number] [place] [address] Sep, [facility] [place] [facility] [address] [id number] [place] [address] Sep, [facility] [place] [facility] [address] [id number] [place] [address] Aug, [facility] [place] [facility] [address] [id number] [place] [address] Aug, [facility] [place] [facility] [address] [id number] [place] [address] Aug, [facility] [place] [facility] [address] [id number] [place] [address] Jun, [facility] [place] [facility] [address] [id number] [place] [address] Jun, [facility] [place] [facility] [address] [id number] [place] [address] Jun, [facility] [place] [facility] [address] [id number] [place] [address] Jun, [facility] [place] [facility] [address] [id number] [place] [address] Jun, [facility] [place] [facility] [address] [id number] [place] [address] Jun, [facility] [place] [facility] [address] [id number] [place] [address] Jun, [facility] [place] [facility] [address] [id number] [place] [address] Jun, [facility] [place] [facility] [address] [id number] [place] [address] Jun, [facility] [place] [facility] [address] [id number] [place] [address] Jun, [facility] [place] [facility] [address] [id number] [place] [address] May, [facility] [place] [facility] [address] [id number] [place] [address] May, [facility] [place] [facility] [address] [id number] [place] [address] May, [facility] [place] [facility] [address] [id number] [place] [address] May, [facility] [place] [facility] [address] [id number] [place] [address] Apr, [facility] [place] [facility] [address] [id number] [place] [address] Apr, [facility] [place] [facility] [address] [id number] [place] [address] Apr, [facility] [place] [facility] [address] [id number] [place] [address] Apr, [facility] [place] [facility] [address] [id number] [place] [address] Apr, [facility] [place] [facility] [address] [id number], [place] [address] Apr, [facility] [place] [facility] [address] [id number] [place] [address] Apr, [facility] [place] [facility] [address] [id number], [place] [address] Apr, [facility] [place] [facility] [address] [id number], [place] [address] Mar, [facility] [place] [facility] [address] [id number], [place] [address] Mar, [facility] [place] [facility] [address] [id number], [place] [address] Mar, [facility] [place] [facility] [address] [id number], [place] [address] Mar, [facility] [place] [facility] [address] [facility] [id number], [place] [address] Mar, [facility] [place] [facility] [address] [id number] [place] [address] 23 Feb, 2012 [facility] [address] [id number] [place] [address] 11 Feb, 2013 [facility] [place] [facility] [address] [id number] [place] [address] 05 Feb, 2013 [facility] [address] [id number] [place] [address] 05 Feb, 2012 [facility] [place] [facility] [address] [id number] [place] [address] 04 Feb, 2013 [facility] [place] [facility] [address] [id number] [place] [address] 30 Jan, 2013 [facility] [place] [facility] [address] [id number] [place] [address] Jan, [facility] [address] [id number] [place] [address] Nov, [facility] [place] [facility] [address] [id number] [place] [address] Nov, [facility] [place] [facility] [address] [id number] [place] [address] Nov, [facility] [place] [facility] [address] [id number] [place] [address] Nov, [facility] [place] [facility] [address] [id number] [place] [address] October, [facility] [place] [facility] [address] [id number] [place] [address] Sep, [facility] [place] [facility] [address] [id number] [place] [address] Aug, [facility] [place] [facility] [address] [id number] [place] [address] Aug, [facility] [place] [facility] [address] [id number] [place] [address] Aug, [facility] [place] [facility] [address] [id number] [place] [address] Aug, [facility] [place] [facility] [address] [id number] [place] [address] Jul, [facility] [place] [facility] [address] [id number] [place] [address] Jun, [facility] [place] [facility] [address] [id number] [place] [address] Jun, [facility] [place] [facility] [address] [id number] [place] [address] May, [facility] [place] [facility] [address] [id number] [place] [address] May, [facility] [place] [facility] [address] [id number] [place] [id number] Mar, [facility] [place] [facility] [address] [id number] [place] [address] Mar, [facility] [place] [facility] [address] [id number] [place] [address] Mar, [facility] [place] [facility] [address] [id number] [place] [address] Mar, [facility] [place] [facility] [address] [id number] [place] [address] Mar, [facility] [place] [facility] [address] [id number], [place] [address] Mar, [facility] [place] [facility] [address] [id number] [place] [address] Mar, [facility] [place] [facility] [address] [id number] [place] [address] Mar, [facility] [place] [facility] [address] [id number] [place] [address] Mar, [facility] [place] [facility] [address] [id number], [place] [address] 20 Mar, 2012 [facility] [place] [facility] [address] [id number] [place] [address] 31[address] 20 Mar, 2011 [facility] [place] [facility] [address] [id number] [place] [address] 17 Mar, 2011 [facility] [place] [facility] [address] [id number] [place] [address] 17 Mar, 2012 [facility] [place] [facility] [address] [id number], [place] [address] 15 Mar, 2012 [facility] [place] [facility] [address] [id number] [place] [address] 15 Mar, 2012 [facility] [place] [facility] [address] [id number] [place] [address] 1463 15 Mar, 2012 [facility] [place] [facility] [address] [id number] [place] [address] 15 Mar, 2012 [facility] [place] [facility] [address] [id number], [place] [address] Mar, [facility] [place] [facility] [address] [id number], [place] [address] Mar, [facility] [place] [facility] [address] [id number], [place] [address] 08 Mar, 2012 [facility] [place] [facility] [address] [id number], [place] [address] 08 Mar, 2012 [facility] [place] [facility] [address] [id number], [place] [address] Mar, [facility] [place] [facility] [address] [id number] [place] [address] Mar, [facility] [place] [facility] [address] [facility] [id number], [place] [address] 19 Feb, 2012 [facility] [place] [facility] [address] [id number], [place] [address] 18 Sep2011 [facility] [place] [facility] [address] [id number] [place] [address] 17 Feb, 2011 [facility] [place] [facility] [address] [id number] [place] [address] 14 Feb, 2011 [facility] [place] [facility] [address] [id number] [place] [address] 2546 14 Feb, 2012 [facility] [place] [facility] [address] [id number] [place] [address] 12 Feb, 2012 [facility] [place] [facility] [address] [id number] [place] [address]44 10 Feb, 2012 [facility] [place] [facility] [address] [id number] [place] [address] 1783 31 Jan, 2012 [facility] [place] [facility] [address] [id number] [place] [address] 30 Jan, 2012 [facility] [place] [facility] [address] [id number] [place] [address] 6[address] 22 Jan, 2012 [facility] [place] [facility] [address] [id number] [place] [address] 20 Jan, 2012 [facility] [place] [facility] [address] [id number] [place] [address] 4484 17 Jan, 2012 [facility] [address] [id number] [place] [address] 69[address] 17 Jan, 2012 [facility] [place] [facility] [address] [id number] [place] [address] 2544 17 Jan, 2012 [facility] [place] [facility] [address] [id number] [place] [address] 2540 16 Jan, 2012 [facility] [place] [facility] [address] [id number] [place] [address] 45[address] 13 Jan, 2012 [facility] [place] [facility] [address] [id number] [place] [address]44 07 Jan, 2012 [facility] [place] [facility] [address] [id number] [place] [address] 9387 26 Dec, 2011 [facility] [place] [facility] [address] [id number] [place] [address]874 24 Dec, 2011 [facility] [place] [facility] [address] [id number] [place] [address] 5216 23 Dec, 2011 [facility] [place] [facility] [address] [id number] [place] [address]- 2746 19 Dec, 2011 [facility] [place] [facility] [address] [id number] [place] [address] 3110 18 Dec, 2011 [facility] [place] [facility] [address] [id number] [place] [address] 5395 17 Dec, 2011 [facility] [place] [facility] [address] [id number] [place] [address]- 4938 16 Dec, 2011 [facility] [place] [facility] [address] [id number] [place] [address] 63[address] 14 Dec, 2011 [facility] [place] [facility] [address] [id number] [place] [address] 477[address] Dec, [facility] [place] [facility] [address] [id number] [place] [address]- 7852 Dec, [facility] [place] [facility] [address] [id number] [place] [address] 3[address] Dec, [facility] [place] [facility] [address] [id number] [place] [address] 5652 Nov, [facility] [place] [facility] [address] [id number] [place] [address] 0917 Nov, [facility] [place] [facility] [address] [id number] [place] [address]- 9232 Nov, [facility] [place] [facility] [address] [id number] [place] [address]- 4296 Nov, [facility] [place] [facility] [address] [id number] [place] [address]- 3976 Nov, [facility] [place] [facility] [address] [id number], [place] [address] Nov, [facility] [address] [facility] [id number], [place] [address] Nov, [facility] [address] [id number], [place] [address] Nov, [facility] [address] [facility] [id number], [place] [address] Nov, [facility] [address] [id number], [place] [address] Nov, [facility] [address] [facility] [id number], [place] [address] October, IMMUNIZATIONS No Known Immunizations SOCIAL HISTORY Never Assessed REASON FOR VISIT Med per Lab Result/Deferred Lab Order PLAN OF CARE VITAL SIGNS MEDICATIONS Medication Instructions Dosage Frequency Start Date End Date Duration Status Pravastatin Sodium 20 mg Orally Once a day 1 tablet 24h May, Active RESULTS No Results PROCEDURES No Known procedures [...]
--- OUTSIDE RECORDS SUMMARY | 2018-01-12 08:59 | XMS REPORT ---
Author DIONY Zuluaga Organization [employer] Address Unknown Phone Unavailable Care Team Providers Care Bead Wire Taper Name Role Phone DIONY XIONG CP Unavailable [...] with status migrainosus, not intractable G43.701 Active Medications Medication Code System Code Instructions Start Date End Date Status Dosage Kasie-PEG [facility] [address]-34 250 MG Orally Once a day Jun 02, 2015 Jun 16, 2015 1 tablets after a meal Results No Known Results Summary Purpose [employer] Submission
--- OUTSIDE RECORDS SUMMARY | 2018-01-12 08:59 | XMS REPORT ---
Author PILY Ivey [facility] [employer] Address Unknown Phone Unavailable Care Team Providers Care Manager Social Responsibility Name Role Phone PILY PORTILLO CP Unavailable [...] generalized 789.07 Active Problem Lumbago 724.2 Active Assessment Irritable bowel syndrome with diarrhea K58.0 Active Problem Acute pain due to trauma 338.11 Active Problem Dental caries limited to enamel 521.01 Active Problem Cough 786.2 Active Problem Unspecified otalgia 388.70 Active Problem Urinary tract infection, site not specified 599.0 Active Problem Unspecified backache 724.5 Active Medications Medication Code System Code Instructions Start Date End Date Status Dosage Dicyclomine HCl [facility] [address]-25 20 MG Orally Four times a day Mar 24, 2015 1 tablet Results No Known Results Summary Purpose [employer] Submission
--- OUTSIDE RECORDS SUMMARY | 2018-01-12 08:59 | XMS REPORT ---
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 Active Medications Medication Code System Code Instructions Start Date End Date Status Dosage Amlodipine Besylate [facility] [address]-89 5 MG Orally Once a day 1 tablet Topamax [facility] [address]-89 200 MG Orally Twice a day 1 tablet Griseofulvin Microsize [facility] [address]-29 125 MG/5ML Orally Once a day Jun 07, 2015 Jun 21, 2015 20 ml after a meal Albuterol Sulfate [facility] [address]-78 90 mcg/actuation November 06, 2011 inhale 2 puffs by inhalation route every 4-6 hours as neededPRNcough or wheezing Gabapentin [facility] [address]-14 300 MG Orally 2 times a day prn 1 capsule Potassium Chloride ER [facility] [address]-24 10 MEQ Orally Twice a day 1 tablet Zoloft [facility] [address]-61 100 MG Orally Once a day 1.5 tablet Dicyclomine HCl [facility] [address]-00 20 MG Orally Four times a day 1 tablet Amitriptyline HCl [facility] [address]-67 25 MG Orally Once a day December 10, 2014 1 tablet at bedtime Propranolol HCl [facility] [address]-17 80 MG Orally Twice a day 1 tablet Trazodone HCl [facility] [address]-63 100 MG Orally Once a day Jun 17, 2015 1 tablet at bedtime Procedures Procedure Coding System Code Date Office Visit, Est Pt., Level 3 CPT-4 61341 Jun 17, 2015 Vital Signs Date/Time: Jun 17, 2015 Blood Pressure Systolic 132 mmHg Weight 178 lbs Height 65 in BMI 29.62 Index Blood Pressure Diastolic 84 mmHg Results No Known Results Summary Purpose eClinicalWorks Submission
--- OUTSIDE RECORDS SUMMARY | 2018-01-12 08:59 | XMS REPORT ---
Author Author SCARLET ALVES 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 Active 506696166 Problem Primary insomnia F51.01 Active 5830178 Problem Elevated lipids E78.5 Active 507539018023 Problem 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 Active 07000523 Problem Essential hypertension I10 Active 84451411 Problem Seizure disorder G40.909 Active 300099742 Problem Other chronic pain G89.29 Active 15789073 ALLERGIES Substance Reaction Event Type Date Status Morphine Sulfate rebound headaches Drug Allergy Jul, Active Amoxicillin itching Drug Allergy Jul, Active SOCIAL HISTORY Never Assessed PLAN OF CARE VITAL SIGNS Height 65 in 2016-07-31 Weight 160.3 lbs 2016-07-31 Temperature 98.0 degrees Fahrenheit 2016-07-31 Heart Rate 88 bpm 2016-07-31 Respiratory Rate 20 2016-07-31 BMI 26.67 kg/m2 2016-07-31 Blood pressure systolic 118 mmHg 2016-07-31 Blood pressure diastolic 88 mmHg 2016-07-31 MEDICATIONS Medication Instructions Dosage Frequency Start Date End Date Duration Status Albuterol Sulfate 90 mcg/actuation inhale 2 puffs by inhalation route every 4-6 hours as neededPRNcough or wheezing Nov, Active Amlodipine Besylate 5 mg Orally Once a day 1 tablet 24h Active Propranolol HCl 80 MG Orally Twice a day 1 tablet 12h Active Potassium Chloride ER 10 MEQ Orally Twice a day 1 tablet 12h Active Omeprazole 40 mg Orally Once a day 1 capsule 24h May, Active Mobic 7.5 MG Orally twice a day 1 tablet 12h Jul, Aug, 30 day(s) Active Cyclobenzaprine HCl 10 mg Orally Three times a day 1 tablet 8h 08 Jul, 2016 Active Dicyclomine HCl 20 mg Orally Four times a day 1 tablet 6h 30 Active RESULTS No Results PROCEDURES Procedure Date Ordered Result Body Site JOINT INJECTION-LARGE JOINT 2016-07-31 N/A DRAIN/INJECT, JOINT/BURSA Jul 31, 2016 IMMUNIZATIONS No Known Immunizations MEDICAL (GENERAL) HISTORY [...] hysterectomy-total 2005 Surgical History lower GI [facility] [place] -not sure results Surgical History EGD Hospitalization History Hospitalization for surgery Hospitalization History Halle- Went through the ER and was hosp for 3 days- GI related 10/2014 Hospitalization History Gianni--multiple seizures 03/2015 Hospitalization History infection in colon, seizures 05/2015 Hospitalization History Hypokalemia and high blood pressure 06/15/2015
--- OUTSIDE RECORDS SUMMARY | 2018-01-12 09:00 | XMS REPORT ---
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 Active Assessment Chronic migraine without aura with status migrainosus, not intractable G43.701 Active Assessment Essential hypertension I10 Active Assessment Hypokalemia E87.6 Active Assessment Irritable bowel K58.9 Active Assessment Low back pain M54.5 Active Medications Medication Code System Code Instructions Start Date End Date Status Dosage Zoloft [facility] [address]-65 100 MG Orally Once a day 1.5 tablet Albuterol Sulfate [facility] [address]-79 90 mcg/actuation November 06, 2011 inhale 2 puffs by inhalation route every 4-6 hours as neededPRNcough or wheezing Griseofulvin Microsize [facility] [address]-73 500 MG Orally Once a day Jun 01, 2015 Jun 15, 2015 1 tablet after a meal Topamax [facility] [address]-61 200 MG Orally Twice a day 1 tablet Amlodipine Besylate [facility] [address]-32 5 MG Orally Once a day 1 tablet Gabapentin [facility] [address]-86 300 MG Orally 2 times a day prn 1 capsule Dicyclomine HCl [facility] [address]-53 20 MG Orally Four times a day 1 tablet Amlodipine Besylate [facility] [address]-51 5 MG Orally Once a day 1 tablet Propranolol HCl [facility] [address]-73 40 MG Orally Twice a day 1 tablet Potassium Chloride ER [facility] [address]-83 10 MEQ Orally every other day 1 tablet Procedures Procedure Coding System Code Date Office Visit, Est Pt., Level 4 CPT-4 55984 Jun 01, 2015 [facility] NO[facility] Jun 01, 2015 Vital Signs Date/Time: Jun 01, 2015 Temperature 97.4 F Weight 176.5 lbs Height 65 in BMI 29.37 Index Blood Pressure Diastolic 89 mmHg Blood Pressure Systolic 133 mmHg Cardiac Monitoring Heart Rate 106 bpm Results Name Result Date Reference Range Unit Abnormality Flag ROUTINE VENIPUNCTURE Summary Purpose eClinicalWorks Submission
--- OUTSIDE RECORDS SUMMARY | 2018-01-12 09:00 | XMS REPORT ---
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
--- OUTSIDE RECORDS SUMMARY | 2018-01-12 09:00 | XMS REPORT ---
Author Author MADI BURROWS Organization [facility] Address [address] [place] [address] Care Team Providers Care Motor Teacher Name Role Phone STORMY MADI Unavailable PROBLEMS Type Condition ICD9-CM Code [id number] Code Onset Dates Condition Status SNOMED Code Problem Irritable bowel K58.9 Active 39382639 Problem Hypokalemia E87.6 Active 13179424 Problem Chronic migraine without aura with status migrainosus, not intractable G43.701 Active 267973239 Problem Abnormal glucose R73.09 Active 274578192 Problem Major depressive disorder, recurrent episode, moderate F33.1 Active 001452980 Problem Tremor, hereditary, 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 Active 456925695 Problem Primary insomnia F51.01 Active 5996600 Problem Elevated lipids E78.5 Active 690116329842 Problem 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 Active 29659670 Problem Essential hypertension I10 Active 65023995 Problem Seizure disorder G40.909 Active 080267285 Problem Other chronic pain G89.29 Active 67210619 ALLERGIES Substance Reaction Event Type Date Status Morphine Sulfate rebound headaches Drug Allergy Jun, Active Amoxicillin itching Drug Allergy Jun, Active SOCIAL HISTORY No smoking Hx information available PLAN OF CARE Activity Details Follow Up prn Reason: VITAL SIGNS Height 65 in 2016-06-15 Weight 155 lbs 2016-06-15 Temperature 98.7 degrees Fahrenheit 2016-06-15 Heart Rate 90 bpm 2016-06-15 Respiratory Rate 20 2016-06-15 BMI 25.79 kg/m2 2016-06-15 Blood pressure systolic 122 mmHg 2016-06-15 Blood pressure diastolic 70 mmHg 2016-06-15 MEDICATIONS Medication Instructions Dosage Frequency Start Date End Date Duration Status Amlodipine Besylate 5 mg Orally Once a day 1 tablet 24h Active Albuterol Sulfate 90 mcg/actuation inhale 2 puffs by inhalation route every 4-6 hours as neededPRNcough or wheezing Nov, Active Augmentin 875-125 MG Orally every 12 hrs 1 tablet 12h 13 Jun, 2016Jun 10 day(s) Active Potassium Chloride ER 10 MEQ Orally Twice a day 1 tablet 12h Active Omeprazole 40 mg Orally Once a day 1 capsule 24h May, Active Propranolol HCl 80 MG Orally Twice a day 1 tablet 12h Active Cyclobenzaprine HCl 5 mg Orally as needed at bedtime, use sparingly 1 tablet 20 Active Dicyclomine HCl 20 mg Orally Four times a day 1 tablet 6h 30 Active RESULTS No Results PROCEDURES Procedure Date Ordered Related Diagnosis Body Site Office Visit, Est Pt., Level 3 Jun 15, 2016 IMMUNIZATIONS No Known Immunizations
--- OUTSIDE RECORDS SUMMARY | 2018-01-12 09:00 | XMS REPORT ---
Author Author DIONY XIONG Organization 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 Active 88739655 Problem Essential hypertension I10 Active 63747912 Problem Intractable chronic migraine without aura and with status migrainosus G43.711 Active 385870029 Problem Moderate persistent asthma with exacerbation J45.41 Active 189546674 Problem Seizure disorder G40.909 Active 651315157 Problem Other chronic pain G89.29 Active 33300577 Problem Moderate persistent asthma without complication J45.40 Active 067170821 Problem Primary insomnia F51.01 Active 0278920 Problem Abnormal glucose R73.09 Active 115245350 Problem Major depressive disorder, recurrent episode, moderate F33.1 Active 414797909 Problem Tremor, hereditary, 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 Active 109003215 Problem Elevated liver enzymes R74.8 Active 701113561 Problem Irritable bowel K58.9 Active 78280275 Problem Hyperlipidemia LDL goal <100 E78.5 Active 65942596 Problem Chronic migraine without aura with status migrainosus, not intractable G43.701 Active 626200263 ALLERGIES No Information ENCOUNTERS Encounter Location Date Diagnosis [facility] [address] [facility] [id number] [address] October, [facility]ALK [facility] [address] [id number] [address] October, Right shoulder pain, unspecified chronicity M25.511 [facility] [address] [facility] [id number] [address] Aug, Elevated liver enzymes R74.8 and Hyperlipidemia LDL goal < [address] [facility] [id number] [place] [address] 87565- 2627 Aug, [facility] [id number] [place] [address] 02182- 8811 Jul, [facility] [id number] [place] [address] 17458- 2363 Jul, Intractable chronic migraine without aura and with status migrainosus G43.711 ; Fever, unspecified fever cause R50.9 and Elevated liver enzymes R74.8 [place] [id number] [place] [address] 12459- 2894 Jun, Difficulty urinating R39.198 and Moderate persistent asthma with exacerbation J45.41 [place] [id number] [place] [address] 22884- 4163 Jun, [facility] [id number] [place] [address] 35612- 4491 Jun, Moderate persistent asthma with exacerbation J45.41 [facility] [id number] [place] [address] 21928- 7580 May, Elevated liver enzymes R74.8 and Hyperlipidemia LDL goal < 100 E78.5 [place] [id number] [place] [address] 25325- 9214 May, Elevated lipids E78.5 [facility] [id number] [place] [address] 32010- 0157 Apr, Elevated liver enzymes R74.8 [facility] [id number] [place] [address] 18270- 7363 Apr, Elevated liver enzymes R74.8 [facility] [id number] [place] [address] 08235- 8162 Apr, Superior glenoid labrum lesion of right shoulder, subsequent encounter S43.431D [place] [id number] [place] [address] 22397- 9400 Apr, Hypokalemia E87.6 ; Major depressive disorder, recurrent episode, moderate F33.1 ; Other abnormalities of breathing R06.89 and Dyspnea, unspecified R06.00 [facility] [id number] [place] [address] 57816 -4143 Mar, Moderate persistent asthma without complication J45.40 [facility] [address] 24415- 4393 Mar, Impingement syndrome of right shoulder M75.41 [facility] [id number] [place] [address] 95615- 1886 Jan, [place] [id number] [place] [address] 31520- 6138 Jan, Chronic migraine without aura with status migrainosus, not intractable G43.701 ; Essential hypertension I10 ; Irritable bowel K58.9 ; Primary insomnia F51.[address] [facility] [id number] [place] [address] 83758- 5403 Dec, [facility] [id number] [place] [address] 34253- 9095 Dec, Pain in right shoulder M25.511 [facility] [id number] [place] [address] 45112- 5999 Dec, Essential hypertension I10 [facility] [id number] [place] [address] 83936- 9185 Dec, [facility] [id number] [place] [address] 94206- 7110 Nov, Essential hypertension I10 [place] [id number] [place] [address] 81201- 8282 Nov, Pain in right shoulder M25.511 [facility] [id number] [place] [address] 39107- 1575 Nov, Pain in right shoulder M25.511 [place] [id number] [place] [address] 28088- 7386 October, [place] [id number] [place] [address] 97643- 9125 October, Pain in right shoulder M25.511 [place] [id number] [place] [address] 52490- 3054 Sep, Arm pain, right M79.601 [place] [id number] [place] [address] 18187- 5920 Sep, [place] [address] 35652- 1030 Sep, Abnormal glucose R73.09 and Elevated lipids E78.5 [place] [address] 40884- 6351 Sep, Abnormal glucose R73.09 and Elevated lipids E78.5 [place] [id number] [place] [address] 99665- 2695 Aug, [place] [address] 82354- 6619 Aug, [place] [id number] [place] [address] 21883- 8869 Aug, [place] [id number] [place] [address] 53721- 0052 Aug, 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 ; Hypokalemia E87.6 ; Irritable bowel K58.9 ; Essential hypertension I10 ; Pain in right shoulder M25.511 ; Seizure disorder G40.909 and Screening for lipid disorders Z13.220 [place] [id number] [place] [address] 33854- 5163 28 Jul, 2016 Other chronic pain G89.29 and Pain in right shoulder M25.511 [place] [id number] [place] [address] 86459- 8125 14 Jul, 2016 Biceps muscle strain, right, subsequent encounter S46.111D [facility] WALK IN [place] [id number] [place] [address] 59880 -2461 08 Jul, 2016 Arm pain, right M79.601 [place] [id number] [place] [address] 91118- 4065 Jun, [place] [address] 60806- 8086 Jun, Acute non-recurrent frontal sinusitis J01.10 [place] [id number] [place] [address] 09777- 3658 May, Generalized abdominal pain R10.84 ; Urinary tract infection without hematuria, site unspecified N39.0 ; Hypokalemia E87.6 ; Essential hypertension I10 ; Screening for lipid disorders Z13.220 ; Seizure R56.9 and Low back pain M54.5 [place] [id number] [place] [address] 44057- 7101 Apr, [facility] WALK IN [place] [id number] [place] [address] 61950 -5006 Feb, [place] [id number] [place] [address] 26071- 2651 Jan, [place] [id number] [place] [address] 95592- 3636 Dec, 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 ; Hypokalemia E87.6 ; Irritable bowel K58.9 and Nausea R11.0 [facility] WALK IN [place] [id number] [place] [address] 99584 -6792 18 Dec, 2015 Generalized abdominal pain R10.84 [place] [id number] [place] [address] 78236- 8015 24 Nov, 2015 [facility] WALK IN [place] [id number] [place] [address] 95108 -1354 14 Aug, 2015 Acute bronchitis J20.9 [place] [id number] [place] [address] 90516- 4936 14 Aug, 2015 [place] [address] 44651- 7585 08 Aug, 2015 Low back pain M54.5 ; Hypokalemia E87.6 ; Chronic migraine without aura with status migrainosus, not intractable G43.701 ; Tremor, hereditary, 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 ; Irritable bowel K58.9 ; Essential hypertension I10 and Seizure R56.9 [place] [address] 60959- 7725 07 Aug, 2015 [place] [address] 84040- 8667 09 Jul, 2015 [place] [address] 92872- 2540 03 Jul, 2015 Low back pain M54.5 ; Hypokalemia E87.6 ; Chronic migraine without aura with status migrainosus, not intractable G43.701 ; Tremor, hereditary, 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 ; Irritable bowel K58.9 ; Essential hypertension I10 and Seizure R56.9 [place] [id number] [place] [address] 04774- 2191 Jun, Hypokalemia E87.6 [place] [id number] [place] [address] 79201- 4876 Jun, ADD (attention deficit disorder) without hyperactivity F90.0 ; Generalized anxiety disorder F41.1 and Major depressive disorder, recurrent episode, moderate F33.1 [place] [id number] [place] [address] 36447- 0056 13 Jun, 2015 Low back pain M54.5 ; Hypokalemia E87.6 ; Chronic migraine without aura with status migrainosus, not intractable G43.701 ; Tremor, hereditary, 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 ; Irritable bowel K58.9 ; Essential hypertension I10 and Seizure R56.9 [place] [id number] [place] [address] 48305- 1909 Jun, [place] [address] 32571- 9437 May, [place] [id number] [place] [address] 97113- 9684 May, Low back pain M54.5 ; Hypokalemia E87.6 ; Chronic migraine without aura with status migrainosus, not intractable G43.701 ; Tremor, hereditary, 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 ; Irritable bowel K58.9 ; Essential hypertension I10 ; Seizure R56.9 and Tinea capitis B35.0 [place] [id number] [place] [address] 96778- 2353 May, Low back pain M54.5 ; Hypokalemia E87.6 ; Chronic migraine without aura with status migrainosus, not intractable G43.701 ; Tremor, hereditary, 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 ; Irritable bowel K58.9 ; Essential hypertension I10 ; Seizure R56.9 ; Otitis media, left H66.92 and Dysuria 788.1 [place] [id number] [place] [address] 15934- 8891 14 May, 2015 Tooth pain K08.8 [place] [id number] [place] [address] 15753- 5046 May, [place] [id number] [place] [address] 02495- 9502 May, Low back pain M54.5 ; Hypokalemia E87.6 ; Chronic migraine without aura with status migrainosus, not intractable G43.701 ; Tremor, hereditary, 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 ; Irritable bowel K58.9 and Essential hypertension I10 [place] [id number] [place] [address] 52690- 1680 Apr, Low back pain M54.5 ; Hypokalemia E87.6 ; Chronic migraine without aura with status migrainosus, not intractable G43.701 ; Tremor, hereditary, 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 and Irritable bowel K58.9 [facility] [id number] [place] [address] 31057- 9554 Apr, Low back pain M54.5 [facility] [id number] [place] [address] 76610- 7179 Mar, [facility] [address] 82897- 7920 Mar, Irritable bowel syndrome with diarrhea K58.0 [facility] [id number] [place] [address] 60099- 2125 Mar, [facility] [address] 21148- 1342 Feb, [place] [address] 66526- 8300 Feb, [facility] [address] 45742- 1273 Feb, Irritable bowel syndrome 564.1 ; Lumbago 724.2 and Cervical pain (neck) 723.1 [place] [id number] [place] [address] 54042- 2094 Dec, Major depressive disorder, recurrent episode, moderate 296.32 and Generalized anxiety disorder 300.02 [place] [id number] [place] [address] 10708- 6711 Nov, [facility] [id number] [place] [address] 35435- 5725 Nov, Major depressive disorder, recurrent episode, moderate 296.32 [place] [address] 93457- 0397 Nov, Constipation 564.00 ; Nausea & vomiting 787.01 and Abdominal pain 789.00 [place] [id number] [place] [address] 40402- 7900 Nov, [place] [address] [facility] [id number] [place] [address]- 3450 October, [facility] [address] [facility] [id number] [place] [address]- 3015 October, [facility] [place] [facility] [address] [facility] [id number] [place] [address]- 6614 October, [facility] [address] [facility] [id number] [place] [address], [place] [address]- 1183 October, [facility] [place] [facility] [address] [facility] [id number] [place] [address]- 9490 Sep, Dysuria 788.1 [facility] [address] [facility] [id number] [place] [address], [place] [address]- 2634 Sep, [facility] [id number] [place] [address]- 9462 Sep, [facility] [address] [place] [address]- 6273 Sep, [facility] [place] [facility] [id number] [place] [address]- 4423 Sep, [facility] [address] [place] [address]- 3187 Aug, [facility] [place] [facility] [address] [place] [address]- 0087 Aug, [facility] [place] [facility] [address] [id number] [place] [address]- 3798 Aug, [facility] [place] [facility] [address] [facility] [id number] [place] [address]- 3266 Aug, [facility] [place] [facility] [address] [facility] [id number] [place] [address]- 0542 Aug, [facility] [place] [facility] [address] [facility] [id number] [place] 4412 Aug, [facility] [place] [facility] [id number] [place] [address]- 2546 Aug, [facility] [place] [facility] [address] [id number] [place] [address]- 2708 Aug, [facility] [place] [facility] [address] [id number] [place] [address]- 7426 Aug, [facility] [place] [facility] [address] [id number] [place] [address]- 4063 Aug, [facility] [place] [facility] [address] [id number] [place] [address]- 0861 Jun, [facility] [place] [facility] [address] [id number] [place] [address]- 1555 Jun, [facility] [place] [facility] [address] [id number] [place] [address]- 5572 Jun, [facility] [place] [facility] [address] [id number] [place] [address]- 8554 Jun, [facility] [place] [facility] [address] [id number] [place] [address]- 5397 May, [facility] [place] [facility] [address] [id number] [place] 2112 May, [facility] [place] [facility] [address] [id number] [place] [address]- 4726 May, [facility] [place] [facility] [address] [id number] [place] [address]- 4760 May, [facility] [place] [facility] [address] [id number] [place] [address]- 4966 May, [facility] [place] [facility] [address] [id number] [place] [address]- 3677 May, [facility] [place] [facility] [address] [id number] [place] [address]- 2601 May, [facility] [place] [facility] [address] [id number] [place] [address]- 0982 May, [facility] [place] [facility] [address] [id number] [place] [address]- 0759 Mar, [facility] [place] [facility] [address] [id number] [place] [address]- 9612 Mar, [facility] [place] [facility] [address] [id number] [place] [address]- 7381 Mar, [facility] [place] [facility] [address] [id number] [place] [address]- 9735 Mar, [facility] [place] [facility] [address] [id number] [place] [address]- 1012 Mar, [facility] [place] [facility] [address] [id number] [place] [address]- 5266 Mar, [facility] [place] [facility] [address] [id number] [place] [address]- 0873 Mar, [facility] [place] [facility] [address] [id number] [place] [address]- 5856 Mar, [facility] [place] [facility] [address] [id number] [place] [address]- 2778 Mar, [facility] [place] [facility] [address] [id number] [place] [address]- 0985 Mar, [facility] [place] [facility] [address] [id number] [place] [address]- 3416 Mar, [facility] [place] [facility] [address] [id number] [place] [address]- 2416 Mar, [facility] [place] [facility] [address] [id number] [place] [address]- 8700 Feb, [facility] [place] [facility] [address] [id number] [place] [address]- 6498 24 Feb, 2014 [facility] [place] [facility] [address] [id number] [place] [address]- 4545 Feb, [facility] [place] [facility] [address] [id number] [place] [address]- 9956 Feb, [facility] [place] [facility] [address] [id number] [place] [address]- 0260 Feb, [facility] [place] [facility] [address] [id number] [place] [address]- 7072 Feb, [facility] [place] [facility] [address] [id number] [place] [address]- 4952 Jan, [facility] [place] [facility] [address] [id number] [place] [address]- 7606 Jan, [facility] [place] [facility] [address] [id number] [place] [address]- 8177 Jan, [facility] [place] [facility] [address] [id number] [place] [address]- 7378 Jan, [facility] [place] [facility] [address] [id number] [place] [address]- 9261 Jan, [facility] [place] [facility] [address] [id number] [place] [address]- 6017 Jan, [facility] [place] [facility] [address] [id number] [place] [address]- 6632 Jan, [facility] [place] [facility] [address] [id number] [place] [address]- 4128 Jan, [facility] [place] [facility] [address] [id number] [place] [address]- 0144 Dec, [facility] [place] [facility] [address] [id number] [place] [address]- 3072 Dec, [facility] [place] [facility] [address] [id number] [place] [address]- 2531 Dec, [facility] [place] [facility] [address] [id number] [place] [address]- 0917 Dec, [facility] [place] [facility] [address] [id number] [place] [address]- 6013 Dec, [facility] [place] [facility] [address] [id number] [place] [address]- 4772 Dec, [facility] [place] [facility] [address] [id number] [place] [address]- 3643 Dec, [facility] [place] [facility] [address] [id number] [place] [address]- 1870 Dec, [facility] [place] [facility] [address] [id number] [place] [address]- 1774 October, [facility] [place] [facility] [address] [id number] [place] [address]- 0073 October, [facility] [place] [facility] [address] [id number] [place] [address]- 5993 Sep, [facility] [place] [facility] [address] [id number] [place] [address]- 5552 Sep, [facility] [place] [facility] [address] [id number] [place] [address]- 2281 Sep, [facility] [place] [facility] [address] [id number] [place] [address]- 1049 Sep, [facility] [place] [facility] [address] [id number] [place] [address]- 3848 Sep, [facility] [place] [facility] [address] [id number] [place] [address]- 3675 Sep, [facility] [place] [facility] [address] [id number] [place] [address]- 7670 Sep, [facility] [place] [facility] [address] [id number] [place] [address]- 5446 Sep, [facility] [place] [facility] [address] [id number] [place] [address]- 3422 Sep, [facility] [place] [facility] [address] [id number] [place] [address]- 4241 Sep, [facility] [place] [facility] [address] [id number] [place] [address]- 9861 Sep, [facility] [place] [facility] [address] [id number] [place] [address]- 9486 Sep, [facility] [place] [facility] [address] [id number] [place] [address]- 5453 Aug, [facility] [place] [facility] [address] [id number] [place] [address] 2546 Aug, [facility] [place] [facility] [address] [id number] [place] [address]- 7773 Aug, [facility] [place] [facility] [address] [id number] [place] [address]- 9583 Jun, [facility] [place] [facility] [address] [id number] [place] [address]- 6854 Jun, [facility] [place] [facility] [address] [id number] [place] [address] Jun, [facility] [place] [facility] [address] [id number] [place] [address] Jun, [facility] [place] [facility] [address] [id number] [place] [address] Jun, [facility] [place] [facility] [address] [id number] [place] [address] Jun, [facility] [place] [facility] [address] [id number] [place] [address] Jun, [facility] [place] [facility] [address] [id number] [place] [address] Jun, [facility] [place] [facility] [address] [id number] [place] [address] Jun, [facility] [place] [facility] [address] [id number] [place] [address] Jun, [facility] [place] [facility] [address] [id number] [place] [address] May, [facility] [place] [facility] [address] [id number] [place] [address] May, [facility] [place] [facility] [address] [id number] [place] [address] May, [facility] [place] [facility] [address] [id number] [place] [address] May, [facility] [place] [facility] [address] [id number] [place] [address] Apr, [facility] [place] [facility] [address] [id number] [place] [address] Apr, [facility] [place] [facility] [address] [id number] [place] [address] Apr, [facility] [place] [facility] [address] [id number] [place] [address] Apr, [facility] [place] [facility] [address] [id number] [place] [address] Apr, [facility] [place] [facility] [address] [id number] [address] Apr, [facility] [place] [facility] [address] [id number] [place] [address] Apr, [facility] [place] [facility] [address] [id number] [address] Apr, [facility] [place] [facility] [address] [id number] [place] [address] Mar, [facility] [place] [facility] [address] [id number] [place] [address] Mar, [facility] [place] [facility] [address] [id number] [place] [address] Mar, [facility] [place] [facility] [address] [id number] [place] [address] Mar, [facility] [place] [facility] [address] [facility] [id number] [place] [address] Mar, [facility] [place] [facility] [address] [id number] [place] [address] 23 Feb, 2012 [facility] [address] [id number] [place] [address] 11 Feb, 2013 [facility] [place] [facility] [address] [id number] [place] [address] 05 Feb, 2013 [facility] [address] [id number] [place] [address] 05 Feb, 2012 [facility] [place] [facility] [address] [id number] [place] [address] 04 Feb, 2013 [facility] [place] [facility] [address] [id number] [place] [address] 30 Jan, 2013 [facility] [place] [facility] [address] [id number] [place] [address] Jan, [facility] [address] [id number] [place] [address] Nov, [facility] [place] [facility] [address] [id number] [place] [address] Nov, [facility] [place] [facility] [address] [id number] [place] [address] Nov, [facility] [place] [facility] [address] [id number] [place] [address] Nov, [facility] [place] [facility] [address] [id number] [place] [address] October, [facility] [place] [facility] [address] [id number] [place] [address] Sep, [facility] [place] [facility] [address] [id number] [place] [address]- [address] Aug, [facility] [place] [facility] [address] [id number] [place] [address] Aug, [facility] [place] [facility] [address] [id number] [place] [address] Aug, [facility] [place] [facility] [address] [id number] [place] [address] Aug, [facility] [place] [facility] [address] [id number] [place] [address] Jul, [facility] [place] [facility] [address] [id number] [place] [address] Jun, [facility] [place] [facility] [address] [id number] [place] [address] Jun, [facility] [place] [facility] [address] [id number] [place] [address] May, [facility] [place] [facility] [address] [id number] [place] [address] May, [facility] [place] [facility] [address] [id number] [place] [id number] Mar, [facility] [place] [facility] [address] [id number] [place] [address] Mar, [facility] [place] [facility] [address] [id number] [place] [address] Mar, [facility] [place] [facility] [address] [id number] [place] [address] Mar, [facility] [place] [facility] [address] [id number] [place] [address] Mar, [facility] [place] [facility] [address] [id number] [address] Mar, [facility] [place] [facility] [address] [id number] [place] [address] Mar, [facility] [place] [facility] [address] [id number] [place] [address] Mar, [facility] [place] [facility] [address] [id number] [place] [address] Mar, [facility] [place] [facility] [address] [id number] [place] [address] 20 Mar, 2012 [facility] [place] [facility] [address] [id number] [place] [address] 20 Mar, 2011 [facility] [place] [facility] [address] [id number] [place] [address] 17 Mar, 2011 [facility] [place] [facility] [address] [id number] [place] [address]- [address] 17 Mar, 2012 [facility] [place] [facility] [address] [id number] [address] 15 Mar, 2012 [facility] [place] [facility] [address] [id number] [place] [address] 15 Mar, 2012 [facility] [place] [facility] [address] [id number] [place] [address]- [address] 15 Mar, 2012 [facility] [place] [facility] [address] [id number] [place] [address]- 1337 15 Mar, 2012 [facility] [place] [facility] [address] [id number] [place] [address] Mar, [facility] [place] [facility] [address] [id number] [place] [address] Mar, [facility] [place] [facility] [address] [id number] [place] [address] 08 Mar, 2012 [facility] [place] [facility] [address] [id number] [place] [address] 08 Mar, 2012 [facility] [place] [facility] [address] [id number] [place] [address] Mar, [facility] [place] [facility] [address] [id number] [place] [address] Mar, [facility] [place] [facility] [address] [facility] [id number] [place] [address] 19 Feb, 2012 [facility] [place] [facility] [address] [id number] [place] [address] 18 Sep2011 [facility] [place] [facility] [address] [id number] [place] [address]28 17 Feb, 2011 [facility] [place] [facility] [address] [id number] [place] [address] 14 Feb, 2011 [facility] [place] [facility] [address] [id number] [place] [address] 2546 14 Feb, 2012 [facility] [place] [facility] [address] [id number] [place] [address] 8266 12 Feb, 2012 [facility] [place] [facility] [address] [id number] [place] [address] 10 Feb, 2012 [facility] [place] [facility] [address] [id number] [place] [address] 31 Jan, 2012 [facility] [place] [facility] [address] [id number] [place] [address]- [address] 30 Jan, 2012 [facility] [place] [facility] [address] [id number] [place] [address] 22 Jan, 2012 [facility] [place] [facility] [address] [id number] [place] [address] 20 Jan, 2012 [facility] [place] [facility] [address] [id number] [place] [address] 17 Jan, 2012 [facility] [address] [id number] [place] [address] 17 Jan, 2012 [facility] [place] [facility] [address] [id number] [place] [address] 2540 17 Jan, 2012 [facility] [place] [facility] [address] [id number] [place] [address]- 2544 16 Jan, 2012 [facility] [place] [facility] [address] [id number] [place] [address]- [address] 13 Jan, 2012 [facility] [place] [facility] [address] [id number] [place] [address]- [address] 07 Jan, 2012 [facility] [place] [facility] [address] [id number] [place] [address] 2839 26 Dec, 2011 [facility] [place] [facility] [address] [id number] [place] [address] 24 Dec, 2011 [facility] [place] [facility] [address] [id number] [place] [address]- [address]226 23 Dec, 2011 [facility] [place] [facility] [address] [id number] [place] [address]- [address] 19 Dec, 2011 [facility] [place] [facility] [address] [id number] [place] [address]- 3693 18 Dec, 2011 [facility] [place] [facility] [address] [id number] [place] [address] 3315 17 Dec, 2011 [facility] [place] [facility] [address] [id number] [place] [address]- 2779 16 Dec, 2011 [facility] [place] [facility] [address] [id number] [place] [address]- 24[address] 14 Dec, 2011 [facility] [place] [facility] [address] [id number] [place] [address] 9[address] Dec, [facility] [place] [facility] [address] [id number] [place] [address]- [address] Dec, [facility] [place] [facility] [address] [id number] [place] [address]- 92[address] Dec, [facility] [place] [facility] [address] [id number] [place] [address] Nov, [facility] [place] [facility] [address] [id number] [place] [address] Nov, [facility] [place] [facility] [address] [id number] [place] [address]37 Nov, [facility] [place] [facility] [address] [id number] [place] [address] Nov, [facility] [place] [facility] [address] [id number] [place] [address]39 Nov, [facility] [place] [facility] [address] [id number] [place] [address] Nov, [facility] [address] [facility] [id number] [address] Nov, [facility] [address] [facility] [id number] [address] 295[address] Nov, [facility] [address] [facility] [id number] [place] [address] Nov, [facility] [address] [facility] [id number] [place] [address] Nov, [facility] [address] [facility] [id number] [place] [address] October, IMMUNIZATIONS No Known Immunizations SOCIAL HISTORY Never Assessed REASON FOR VISIT US and Lab from Lab result PLAN OF CARE VITAL SIGNS MEDICATIONS Unknown Medications RESULTS Name Result Date Reference Range Ultrasound : Liver 2017-05-13 Ultrasound : Liver 2017-07-23 PROCEDURES No Known procedures INSTRUCTIONS MEDICATIONS ADMINISTERED [...]
--- OUTSIDE RECORDS SUMMARY | 2018-01-12 09:01 | XMS REPORT ---
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 Active 66974113 Problem Essential hypertension I10 Active 98009376 Problem Intractable chronic migraine without aura and with status migrainosus G43.711 Active 076777369 Problem Moderate persistent asthma with exacerbation J45.41 Active 335064382 Problem Seizure disorder G40.909 Active 445676257 Problem Other chronic pain G89.29 Active 36927730 Problem Moderate persistent asthma without complication J45.40 Active 550171834 Problem Primary insomnia F51.01 Active 6981077 Problem Abnormal glucose R73.09 Active 004295025 Problem Major depressive disorder, recurrent episode, moderate F33.1 Active 658389527 Problem Tremor, hereditary, 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 Active 402706223 Problem Elevated liver enzymes R74.8 Active 878071041 Problem Irritable bowel K58.9 Active 79277639 Problem Hyperlipidemia LDL goal <100 E78.5 Active 92430857 Problem Chronic migraine without aura with status migrainosus, not intractable G43.701 Active 199473261 ALLERGIES No Information ENCOUNTERS Encounter Location Date Diagnosis [facility] [address] [facility] [id number] [address] October, [facility] [address] [id number] [address] October, Right shoulder pain, unspecified chronicity M25.511 [facility] [address] [facility] [id number], [place] [address] Aug, Elevated liver enzymes R74.8 and Hyperlipidemia LDL goal < 100 E78.5 [facility] [id number] [place] [address] 08843- 2247 Aug, [facility] [id number] [place] [address] 55002- 8368 Jul, [facility] [id number] [place] [address] 36357- 1267 Jul, Intractable chronic migraine without aura and with status migrainosus G43.711 ; Fever, unspecified fever cause R50.9 and Elevated liver enzymes R74.8 [place] [id number] [place] [address] 31180- 6741 Jun, Difficulty urinating R39.198 and Moderate persistent asthma with exacerbation J45.41 [place] [id number] [place] [address] 56932- 8892 Jun, [facility] [id number] [place] [address] 81135- 0808 Jun, Moderate persistent asthma with exacerbation J45.41 [facility] [id number] [place] [address] 99491- 2085 May, Elevated liver enzymes R74.8 and Hyperlipidemia LDL goal < 100 E78.5 [place] [id number] [place] [address] 61016- 7450 May, Elevated lipids E78.5 [facility] [id number] [place] [address] 65813- 8757 Apr, Elevated liver enzymes R74.8 [facility] [id number] [place] [address] 52123- 6741 Apr, Elevated liver enzymes R74.8 [facility] [id number] [place] [address] 21872- 6501 Apr, Superior glenoid labrum lesion of right shoulder, subsequent encounter S43.431D [place] [id number] [place] [address] 19993- 0256 Apr, Hypokalemia E87.6 ; Major depressive disorder, recurrent episode, moderate F33.1 ; Other abnormalities of breathing R06.89 and Dyspnea, unspecified R06.00 [facility] [id number] [place] [address] 34291 -4337 Mar, Moderate persistent asthma without complication J45.40 [facility] [address] 58032- 1934 Mar, Impingement syndrome of right shoulder M75.41 [facility] [id number] [place] [address] 87889- 7957 Jan, [place] [id number] [place] [address] 33166- 7351 Jan, Chronic migraine without aura with status migrainosus, not intractable G43.701 ; Essential hypertension I10 ; Irritable bowel K58.9 ; Primary insomnia F51.01 and Hypokalemia E87.6 [facility] [id number] [place] [address] 39458- 0489 Dec, [facility] [id number] [place] [address] 45527- 9157 Dec, Pain in right shoulder M25.511 [facility] [id number] [place] [address] 21830- 2869 Dec, Essential hypertension I10 [facility] [id number] [place] [address] 78261- 1200 Dec, [facility] [id number] [place] [address] 57777- 8183 Nov, Essential hypertension I10 [place] [id number] [place] [address] 67891- 0915 Nov, Pain in right shoulder M25.511 [facility] [id number] [place] [address] 04474- 4832 Nov, Pain in right shoulder M25.511 [place] [id number] [place] [address] 82741- 1379 October, [place] [id number] [place] [address] 86776- 5030 October, Pain in right shoulder M25.511 [place] [id number] [place] [address] 98689- 5694 Sep, Arm pain, right M79.601 [place] [id number] [place] [address] 94672- 8983 Sep, [place] [address] 39549- 3435 Sep, Abnormal glucose R73.09 and Elevated lipids E78.5 [place] [address] 23328- 7542 Sep, Abnormal glucose R73.09 and Elevated lipids E78.5 [place] [id number] [place] [address] 64506- 0480 Aug, [place] [address] 49027- 7706 Aug, [place] [id number] [place] [address] 01458- 6736 Aug, [place] [id number] [place] [address] 34137- 1281 Aug, 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 ; Hypokalemia E87.6 ; Irritable bowel K58.9 ; Essential hypertension I10 ; Pain in right shoulder M25.511 ; Seizure disorder G40.909 and Screening for lipid disorders Z13.220 [place] [id number] [place] [address] 62265- 0210 28 Jul, 2016 Other chronic pain G89.29 and Pain in right shoulder M25.511 [place] [id number] [place] [address] 71245- 2189 14 Jul, 2016 Biceps muscle strain, right, subsequent encounter S46.111D [facility] [place] [id number] [place] [address] 52314 -5472 08 Jul, 2016 Arm pain, right M79.601 [place] [id number] [place] [address] 48438- 5302 Jun, [place] [address] 86289- 7947 Jun, Acute non-recurrent frontal sinusitis J01.10 [place] [id number] [place] [address] 72654- 9460 May, Generalized abdominal pain R10.84 ; Urinary tract infection without hematuria, site unspecified N39.0 ; Hypokalemia E87.6 ; Essential hypertension I10 ; Screening for lipid disorders Z13.220 ; Seizure R56.9 and Low back pain M54.5 [place] [id number] [place] [address] 36958- 8985 Apr, [facility] [place] [id number] [place] [address] 61241 -4197 Feb, [place] [id number] [place] [address] 51448- 3554 Jan, [place] [id number] [place] [address] 42251- 7990 Dec, 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 ; Hypokalemia E87.6 ; Irritable bowel K58.9 and Nausea R11.0 [facility] [place] [id number] [place] [address] 24935 -4459 18 Dec, 2015 Generalized abdominal pain R10.84 [place] [id number] [place] [address] 19026- 3075 24 Nov, 2015 [facility] [place] [id number] [place] [address] 79919 -8895 14 Aug, 2015 Acute bronchitis J20.9 [place] [id number] [place] [address] 80934- 2021 14 Aug, 2015 [place] [address] 38161- 7941 08 Aug, 2015 Low back pain M54.5 ; Hypokalemia E87.6 ; Chronic migraine without aura with status migrainosus, not intractable G43.701 ; Tremor, hereditary, 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 ; Irritable bowel K58.9 ; Essential hypertension I10 and Seizure R56.9 [place] [address] 49735- 8517 07 Aug, 2015 [place] [address] 59159- 7012 09 Jul, 2015 [place] [address] 64380- 5403 03 Jul, 2015 Low back pain M54.5 ; Hypokalemia E87.6 ; Chronic migraine without aura with status migrainosus, not intractable G43.701 ; Tremor, hereditary, 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 ; Irritable bowel K58.9 ; Essential hypertension I10 and Seizure R56.9 [place] [id number] [place] [address] 95718- 6926 Jun, Hypokalemia E87.6 [place] [id number] [place] [address] 69696- 5967 Jun, ADD (attention deficit disorder) without hyperactivity F90.0 ; Generalized anxiety disorder F41.1 and Major depressive disorder, recurrent episode, moderate F33.1 [place] [id number] [place] [address] 89913- 2460 13 Jun, 2015 Low back pain M54.5 ; Hypokalemia E87.6 ; Chronic migraine without aura with status migrainosus, not intractable G43.701 ; Tremor, hereditary, 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 ; Irritable bowel K58.9 ; Essential hypertension I10 and Seizure R56.9 [place] [address] [place] [address] 10088- 3899 Jun, [place] [address] 47960- 5520 May, [place] [id number] [place] [address] 30292- 3494 May, Low back pain M54.5 ; Hypokalemia E87.6 ; Chronic migraine without aura with status migrainosus, not intractable G43.701 ; Tremor, hereditary, 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 ; Irritable bowel K58.9 ; Essential hypertension I10 ; Seizure R56.9 and Tinea capitis B35.0 [place] [id number] [place] [address] 17713- 9096 May, Low back pain M54.5 ; Hypokalemia E87.6 ; Chronic migraine without aura with status migrainosus, not intractable G43.701 ; Tremor, hereditary, 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 ; Irritable bowel K58.9 ; Essential hypertension I10 ; Seizure R56.9 ; Otitis media, left H66.92 and Dysuria 788.1 [place] [id number] [place] [address] 55316- 0157 14 May, 2015 Tooth pain K08.8 [place] [id number] [place] [address] 71647- 4830 May, [place] [id number] [place] [address] 83656- 0738 May, Low back pain M54.5 ; Hypokalemia E87.6 ; Chronic migraine without aura with status migrainosus, not intractable G43.701 ; Tremor, hereditary, 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 ; Irritable bowel K58.9 and Essential hypertension I10 [place] [id number] [place] [address] 81958- 4159 Apr, Low back pain M54.5 ; Hypokalemia E87.6 ; Chronic migraine without aura with status migrainosus, not intractable G43.701 ; Tremor, hereditary, 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 and Irritable bowel K58.9 [facility] [id number] [place] [address] 03897- 1574 Apr, Low back pain M54.5 [facility] [id number] [place] [address] 53974- 9740 Mar, [facility] [address] 17956- 5636 Mar, Irritable bowel syndrome with diarrhea K58.0 [facility] [id number] [place] [address] 81217- 4250 Mar, [facility] [address] 76547- 7381 Feb, [place] [address] 87259- 1301 Feb, [facility] [address] 16718- 4574 Feb, Irritable bowel syndrome 564.1 ; Lumbago 724.2 and Cervical pain (neck) 723.1 [place] [id number] [place] [address] 91444- 0145 Dec, Major depressive disorder, recurrent episode, moderate 296.32 and Generalized anxiety disorder 300.02 [place] [id number] [place] [address] 60640- 1275 Nov, [facility] [id number] [place] [address] 38134- 7416 Nov, Major depressive disorder, recurrent episode, moderate 296.32 [place] [address] 21849- 6344 Nov, Constipation 564.00 ; Nausea & vomiting 787.01 and Abdominal pain 789.00 [place] [id number] [place] [address] 05748- 4992 Nov, [place] [address] [facility] [id number] [place] [address]- 3385 October, [facility] [address] [facility] [id number] [place] [address]- 9110 October, [facility] [place] [facility] [address] [facility] [id number] [place] [address]- 8356 October, [facility] [address] [facility] [id number] [place] [address], [place] [address]- 6149 October, [facility] [place] [facility] [address] [facility] [id number] [place] [address]- 5000 Sep, Dysuria 788.1 [facility] [address] [facility] [id number] [place] [address], [place] [address]- 4827 Sep, [facility] [id number] [place] [address]- 6892 Sep, [facility] [address] [place] [address]- 4906 Sep, [facility] [place] [facility] [id number] [place] [address]- 5238 Sep, [facility] [address] [place] [address]- 4062 Aug, [facility] [place] [facility] [address] [place] [address]- 1274 Aug, [facility] [place] [facility] [address] [id number] [place] [address]- 8356 Aug, [facility] [place] [facility] [address] [facility] [id number] [place] [address]- 1869 Aug, [facility] [place] [facility] [address] [facility] [id number] [place] [address]- 2646 Aug, [facility] [place] [facility] [address] [facility] [id number] [place] 0215 Aug, [facility] [place] [facility] [id number] [place] [address]- 2546 Aug, [facility] [place] [facility] [address] [id number] [place] [address]- 1946 Aug, [facility] [place] [facility] [address] [id number] [place] [address]- 9346 Aug, [facility] [place] [facility] [address] [id number] [place] [address]- 3360 Aug, [facility] [place] [facility] [address] [id number] [place] [address]- 8103 Jun, [facility] [place] [facility] [address] [id number] [place] [address]- 0876 Jun, [facility] [place] [facility] [address] [id number] [place] [address]- 7745 Jun, [facility] [place] [facility] [address] [id number] [place] [address]- 9482 Jun, [facility] [place] [facility] [address] [id number] [place] [address]- 0079 May, [facility] [place] [facility] [address] [id number] [place] 2972 May, [facility] [place] [facility] [address] [id number] [place] [address]- 3242 May, [facility] [place] [facility] [address] [id number] [place] [address]- 7346 May, [facility] [place] [facility] [address] [id number] [place] [address]- 6272 May, [facility] [place] [facility] [address] [id number] [place] [address]- 5555 May, [facility] [place] [facility] [address] [id number] [place] [address]- 3576 May, [facility] [place] [facility] [address] [id number] [place] [address]- 9025 May, [facility] [place] [facility] [address] [id number] [place] [address]- 2763 Mar, [facility] [place] [facility] [address] [id number] [place] [address]- 1160 Mar, [facility] [place] [facility] [address] [id number] [place] [address]- 1543 Mar, [facility] [place] [facility] [address] [id number] [place] [address]- 4904 Mar, [facility] [place] [facility] [address] [id number] [place] [address]- 4816 Mar, [facility] [place] [facility] [address] [id number] [place] [address]- 5962 Mar, [facility] [place] [facility] [address] [id number] [place] [address]- 2954 Mar, [facility] [place] [facility] [address] [id number] [place] [address]- 3491 Mar, [facility] [place] [facility] [address] [id number] [place] [address]- 6276 Mar, [facility] [place] [facility] [address] [id number] [place] [address]- 1573 Mar, [facility] [place] [facility] [address] [id number] [place] [address]- 0916 Mar, [facility] [place] [facility] [address] [id number] [place] [address]- 9700 Mar, [facility] [place] [facility] [address] [id number] [place] [address]- 8422 Feb, [facility] [place] [facility] [address] [id number] [place] [address]- 6162 24 Feb, 2014 [facility] [place] [facility] [address] [id number] [place] [address]- 6303 Feb, [facility] [place] [facility] [address] [id number] [place] [address]- 7081 Feb, [facility] [place] [facility] [address] [id number] [place] [address]- 0150 Feb, [facility] [place] [facility] [address] [id number] [place] [address]- 8665 Feb, [facility] [place] [facility] [address] [id number] [place] [address]- 7627 Jan, [facility] [place] [facility] [address] [id number] [place] [address]- 4112 Jan, [facility] [place] [facility] [address] [id number] [place] [address]- 4430 Jan, [facility] [place] [facility] [address] [id number] [place] [address]- 4978 Jan, [facility] [place] [facility] [address] [id number] [place] [address]- 8708 Jan, [facility] [place] [facility] [address] [id number] [place] [address]- 2722 Jan, [facility] [place] [facility] [address] [id number] [place] [address]- 0387 Jan, [facility] [place] [facility] [address] [id number] [place] [address]- 8679 Jan, [facility] [place] [facility] [address] [id number] [place] [address]- 4126 Dec, [facility] [place] [facility] [address] [id number] [place] [address]- 5473 Dec, [facility] [place] [facility] [address] [id number] [place] [address]- 5518 Dec, [facility] [place] [facility] [address] [id number] [place] [address]- 2646 Dec, [facility] [place] [facility] [address] [id number] [place] [address]- 5599 Dec, [facility] [place] [facility] [address] [id number] [place] [address]- 9226 Dec, [facility] [place] [facility] [address] [id number] [place] [address]- 6675 Dec, [facility] [place] [facility] [address] [id number] [place] [address]- 8881 Dec, [facility] [place] [facility] [address] [id number] [place] [address]- 9456 October, [facility] [place] [facility] [address] [id number] [place] [address]- 7517 October, [facility] [place] [facility] [address] [id number] [place] [address]- 7656 Sep, [facility] [place] [facility] [address] [id number] [place] [address]- 6868 Sep, [facility] [place] [facility] [address] [id number] [place] [address]- 0669 Sep, [facility] [place] [facility] [address] [id number] [place] [address]- 0847 Sep, [facility] [place] [facility] [address] [id number] [place] [address]- 0825 Sep, [facility] [place] [facility] [address] [id number] [place] [address]- 1638 Sep, [facility] [place] [facility] [address] [id number] [place] [address]- 9303 Sep, [facility] [place] [facility] [address] [id number] [place] [address]- 2942 Sep, [facility] [place] [facility] [address] [id number] [place] [address]- 0739 Sep, [facility] [place] [facility] [address] [id number] [place] [address]- 0778 Sep, [facility] [place] [facility] [address] [id number] [place] [address]- 0856 Sep, [facility] [place] [facility] [address] [id number] [place] [address]- 9306 Sep, [facility] [place] [facility] [address] [id number] [place] [address]- 8065 Aug, [facility] [place] [facility] [address] [id number] [place] [address] 2546 Aug, [facility] [place] [facility] [address] [id number] [place] [address]- 2863 Aug, [facility] [place] [facility] [address] [id number] [place] [address]- 9724 Jun, [facility] [place] [facility] [address] [id number] [place] [address]- 2739 Jun, [facility] [place] [facility] [address] [id number] [place] [address] Jun, [facility] [place] [facility] [address] [id number] [place] [address] Jun, [facility] [place] [facility] [address] [id number] [place] [address] Jun, [facility] [place] [facility] [address] [id number] [place] [address] Jun, [facility] [place] [facility] [address] [id number] [place] [address] Jun, [facility] [place] [facility] [address] [id number] [place] [address] Jun, [facility] [place] [facility] [address] [id number] [place] [address] Jun, [facility] [place] [facility] [address] [id number] [place] [address] Jun, [facility] [place] [facility] [address] [id number] [place] [address] May, [facility] [place] [facility] [address] [id number] [place] [address] May, [facility] [place] [facility] [address] [id number] [place] [address] May, [facility] [place] [facility] [address] [id number] [place] [address] May, [facility] [place] [facility] [address] [id number] [place] [address] 1984 Apr, [facility] [place] [facility] [address] [id number] [place] [address] Apr, [facility] [place] [facility] [address] [id number] [place] [address] Apr, [facility] [place] [facility] [address] [id number] [place] [address] Apr, [facility] [place] [facility] [address] [id number] [place] [address] Apr, [facility] [place] [facility] [address] [id number], [place] [address] Apr, [facility] [place] [facility] [address] [id number] [place] [address] Apr, [facility] [place] [facility] [address] [id number], [place] [address] Apr, [facility] [place] [facility] [address] [id number], [place] [address] Mar, [facility] [place] [facility] [address] [id number], [place] [address] Mar, [facility] [place] [facility] [address] [id number], [place] [address] Mar, [facility] [place] [facility] [address] [id number], [place] [address] Mar, [facility] [place] [facility] [address] [facility] [id number], [place] [address] Mar, [facility] [place] [facility] [address] [id number] [place] [address] 23 Feb, 2012 [facility] [address] [id number] [place] [address] 11 Feb, 2013 [facility] [place] [facility] [address] [id number] [place] [address]- [address] 05 Feb, 2013 [facility] [address] [id number] [place] [address]- [address] 05 Feb, 2012 [facility] [place] [facility] [address] [id number] [place] [address]- [address] 04 Feb, 2013 [facility] [place] [facility] [address] [id number] [place] [address]- [address] 30 Jan, 2013 [facility] [place] [facility] [address] [id number] [place] [address] Jan, [facility] [address] [id number] [place] [address] Nov, [facility] [place] [facility] [address] [id number] [place] [address] Nov, [facility] [place] [facility] [address] [id number] [place] [address] Nov, [facility] [place] [facility] [address] [id number] [place] [address] Nov, [facility] [place] [facility] [address] [id number] [place] [address] October, [facility] [place] [facility] [address] [id number] [place] [address] Sep, [facility] [place] [facility] [address] [id number] [place] [address] Aug, [facility] [place] [facility] [address] [id number] [place] [address] Aug, [facility] [facility] [address] [id number] [place] [address] Aug, [facility] [place] [facility] [address] [id number] [place] [address] Aug, [facility] [place] [facility] [address] [id number] [place] [address] Jul, [facility] [place] [facility] [address] [id number] [place] [address] Jun, [facility] [place] [facility] [address] [id number] [place] [address] Jun, [facility] [place] [facility] [address] [id number] [place] [address] May, [facility] [place] [facility] [address] [id number] [place] [address] May, [facility] [facility] [address] [id number] [place] [id number] Mar, [facility] [place] [facility] [address] [id number] [place] [address] Mar, [facility] [place] [facility] [address] [id number] [place] [address] Mar, [facility] [place] [facility] [address] [id number] [place] [address] Mar, [facility] [place] [facility] [address] [id number] [place] [address] Mar, [facility] [place] [facility] [address] [id number], [place] [address] Mar, [facility] [place] [facility] [address] [id number] [place] [address] Mar, [facility] [place] [facility] [address] [id number] [place] [address] Mar, [facility] [place] [facility] [address] [id number] [place] [address] Mar, [facility] [place] [facility] [address] [id number], [place] [address] 20 Mar, 2012 [facility] [address] [id number] [place] [address]70 20 Mar, 2011 [facility] [place] [facility] [address] [id number] [place] [address] 17 Mar, 2011 [facility] [place] [facility] [address] [id number] [place] [address] 17 Mar, 2012 [facility] [facility] [address] [id number], [place] [address] 15 Mar, 2012 [facility] [place] [facility] [address] [id number] [place] [address] 15 Mar, 2012 [facility] [place] [facility] [address] [id number] [place] [address] 15 Mar, 2012 [facility] [place] [facility] [address] [id number] [place] [address] 98[address] 15 Mar, 2012 [facility] [address] [id number], [place] [address] Mar, [facility] [address] [id number], [place] [address] Mar, [facility] [address] [id number], [place] [address] 08 Mar, 2012 [facility] [address] [id number], [place] [address] 08 Mar, 2012 [facility] [address] [id number], [place] [address] Mar, [facility] [address] [id number] [place] [address] Mar, [facility] [facility] [address] [facility] [id number], [place] [address] 19 Feb, 2012 [facility] [address] [id number], [place] [address] 18 Sep2011 [facility] [facility] [address] [id number] [place] [address] 17 Feb, 2011 [facility] [address] [id number] [place] [address] 14 Feb, 2011 [facility] [address] [id number] [place] [address] 2546 14 Feb, 2012 [facility] [address] [id number] [place] [address] 12 Feb, 2012 [facility] [place] [facility] [address] [id number] [place] [address]40 10 Feb, 2012 [facility] [address] [id number] [place] [address] 31 Jan, 2012 [facility] [address] [id number] [place] [address] 30 Jan, 2012 [facility] [address] [id number] [place] [address] 22 Jan, 2012 [facility] [address] [id number] [place] [address] 20 Jan, 2012 [facility] [address] [id number] [place] [address] 17 Jan, [address] [facility] [address] [id number] [place] [address]69 17 Jan, 2012 [facility] [address] [id number] [place] [address] 2540 17 Jan, 2012 [facility] [address] [id number] [place] [address]- 2549 16 Jan, 2012 [facility] [address] [id number] [place] [address] 97[address] 13 Jan, 2012 [facility] [address] [id number] [place] [address] 07 Jan, 2012 [facility] [address] [id number] [place] [address] 26 Dec, 2011 [facility] [address] [id number] [place] [address] 24 Dec, 2011 [facility] [address] [id number] [place] [address]- 9496 23 Dec, 2011 [facility] [address] [id number] [place] [address]- 7875 19 Dec, 2011 [facility] [address] [id number] [place] [address]- 3499 18 Dec, 2011 [facility] [address] [id number] [place] [address] 1272 17 Dec, 2011 [facility] [address] [id number] [place] [address]- [address]60 16 Dec, 2011 [facility] [address] [id number] [place] [address] 2839 14 Dec, 2011 [facility] [address] [id number] [place] [address]64 Dec, [facility] [address] [id number] [place] [address] Dec, [facility] [address] [id number] [place] [address] Dec, [facility] [address] [id number] [place] [address] Nov, [facility] [address] [id number] [place] [address] Nov, [facility] [address] [id number] [place] [address] 260[address] Nov, [facility] [address] [id number] [place] [address] Nov, [facility] [address] [id number] [place] [address] 1697 Nov, [facility] [address] [id number], [place] [address] Nov, [facility] [address] [facility] [id number] [place] [address] Nov, [facility] [address] [facility] [id number], [place] [address] Nov, [facility] [address] [facility] [id number], [place] [address] Nov, [facility] [address] [id number], [place] [address] Nov, [facility] [address] [facility] [id number], [place] [address] October, IMMUNIZATIONS No Known Immunizations SOCIAL HISTORY [...]
--- OUTSIDE RECORDS SUMMARY | 2018-01-12 09:01 | XMS REPORT ---
Author Author SCARLET ALVES [facility] Address [address] [place] [address] Care Team Providers Care Candy Counter Clerk Name Role Phone LONG SCARLET Unavailable PROBLEMS Type Condition ICD9-CM Code [id number] Code Onset Dates Condition Status SNOMED Code Problem Irritable bowel K58.9 Active 05006698 Problem Hypokalemia E87.6 Active 95370520 Problem Chronic migraine without aura with status migrainosus, not intractable G43.701 Active 670031305 Problem Abnormal glucose R73.09 Active 062700470 Problem Major depressive disorder, recurrent episode, moderate F33.1 Active 277246955 Problem Tremor, hereditary, 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 Active 975550709 Problem Primary insomnia F51.01 Active 6070052 Problem Elevated lipids E78.5 Active 948713641315 Problem 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 Active 67678504 Problem Essential hypertension I10 Active 81484156 Problem Seizure disorder G40.909 Active 679722711 Problem Other chronic pain G89.29 Active 65953112 ALLERGIES Substance Reaction Event Type Date Status Morphine Sulfate rebound headaches Drug Allergy Jul, Active Amoxicillin itching Drug Allergy Jul, Active SOCIAL HISTORY Never Assessed PLAN OF CARE VITAL SIGNS Height 65 in 2016-07-11 Weight 155.2 lbs 2016-07-11 Temperature 98.6 degrees Fahrenheit 2016-07-11 Heart Rate 56 bpm 2016-07-11 Respiratory Rate 20 2016-07-11 BMI 25.82 kg/m2 2016-07-11 Blood pressure systolic 80 mmHg 2016-07-11 Blood pressure diastolic 54 mmHg 2016-07-11 MEDICATIONS Medication Instructions Dosage Frequency Start Date End Date Duration Status PredniSONE 20 mg Orally Once a day 1 tablet 24h Jul, Jul, 05 days Active [place] 5-325 MG Orally every 6 hrs 1 tablet as needed 6h Jul, Active Cyclobenzaprine HCl 10 mg Orally Three times a day 1 tablet 8h Jul, Active Cyclobenzaprine HCl 5 mg Orally as needed at bedtime, use sparingly 1 tablet 20 Active Omeprazole 40 mg Orally Once a day 1 capsule 24h May, Active Albuterol Sulfate 90 mcg/actuation inhale 2 puffs by inhalation route every 4-6 hours as neededPRNcough or wheezing Nov, Active Amlodipine Besylate 5 mg Orally Once a day 1 tablet 24h Active Propranolol HCl 80 MG Orally Twice a day 1 tablet 12h Active Dicyclomine HCl 20 mg Orally Four times a day 1 tablet 6h 30 Active Potassium Chloride ER 10 MEQ Orally Twice a day 1 tablet 12h Active RESULTS No Results PROCEDURES No Known [...] hysterectomy-total 2005 Surgical History lower GI [facility] Tamiment -not sure results Surgical History EGD Hospitalization History Hospitalization for surgery Hospitalization History [facility]- Went through the ER and was hosp for 3 days- GI related 10/2014 Hospitalization History [facility]--multiple seizures 03/2015 Hospitalization History infection in colon, seizures 05/2015 Hospitalization History Hypokalemia and high blood pressure 06/15/2015
--- OUTSIDE RECORDS SUMMARY | 2018-01-12 09:02 | XMS REPORT ---
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 Active 75467696 Problem Essential hypertension I10 Active 11340429 Problem Intractable chronic migraine without aura and with status migrainosus G43.711 Active 836909793 Problem Moderate persistent asthma with exacerbation J45.41 Active 860428342 Problem Seizure disorder G40.909 Active 150371373 Problem Other chronic pain G89.29 Active 85479611 Problem Moderate persistent asthma without complication J45.40 Active 468864496 Problem Primary insomnia F51.01 Active 1963553 Problem Abnormal glucose R73.09 Active 748107981 Problem Major depressive disorder, recurrent episode, moderate F33.1 Active 054083336 Problem Tremor, hereditary, 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 Active 565576056 Problem Elevated liver enzymes R74.8 Active 758495308 Problem Irritable bowel K58.9 Active 76375029 Problem Hyperlipidemia LDL goal <100 E78.5 Active 90944561 Problem Chronic migraine without aura with status migrainosus, not intractable G43.701 Active 822629678 ALLERGIES Substance Reaction Event Type Date Status Morphine Sulfate rebound headaches Drug Allergy Apr, Active Gabapentin coma Drug Allergy Apr, Active Amoxicillin itching Drug Allergy Apr, Active NSAIDS Hallucinations Non Drug Allergy Apr, Active ENCOUNTERS Encounter Location Date Diagnosis [facility] [address] [facility] [id number], [place] [address] October, Right shoulder pain, unspecified chronicity M25.511 [facility] [address] [facility] [id number], [place] [address] Aug, Elevated liver enzymes R74.8 and Hyperlipidemia LDL goal < 100 E78.5 [facility] [id number] [place] [address] 34320- 3421 Aug, [facility] [id number] [place] [address] 87636- 5557 Jul, [facility] [id number] [place] [address] 26751- 6233 Jul, Intractable chronic migraine without aura and with status migrainosus G43.711 ; Fever, unspecified fever cause R50.9 and Elevated liver enzymes R74.8 [facility] [id number] [place] [address] 23337- 6833 Jun, Difficulty urinating R39.198 and Moderate persistent asthma with exacerbation J45.41 [facility] [id number] [place] [address] 84692- 3776 Jun, [facility] [id number] [place] [address] 57088- 5599 Jun, Moderate persistent asthma with exacerbation J45.41 [facility] [id number] [place] [address] 07257- 6139 May, Elevated liver enzymes R74.8 and Hyperlipidemia LDL goal < 100 E78.5 [facility] [id number] [place] [address] 67315- 8107 May, Elevated lipids E78.5 [facility] [id number] [place] [address] 00718- 4896 Apr, Elevated liver enzymes R74.8 [facility] [address] 55362- 3919 Apr, Elevated liver enzymes R74.8 [facility] [id number] [place] [address] 79659- 6664 Apr, Superior glenoid labrum lesion of right shoulder, subsequent encounter S43.431D [facility] [id number] [place] [address] 88839- 9143 Apr, Hypokalemia E87.6 ; Major depressive disorder, recurrent episode, moderate F33.1 ; Other abnormalities of breathing R06.89 and Dyspnea, unspecified R06.00 [facility] [id number] [place] [address] 72610 -8258 Mar, Moderate persistent asthma without complication J45.40 [facility] [address] 25517- 1047 Mar, Impingement syndrome of right shoulder M75.41 [facility] [address] 33001- 0797 Jan, [facility] [address] 67814- 9473 Jan, Chronic migraine without aura with status migrainosus, not intractable G43.701 ; Essential hypertension I10 ; Irritable bowel K58.9 ; Primary insomnia F51.01 and Hypokalemia E87.6 [facility] [address] 44115- 5949 Dec, [facility] [address] 84341- 5146 Dec, Pain in right shoulder M25.511 [facility] [id number] [place] [address] 29804- 2997 Dec, Essential hypertension I10 [facility] [id number] [place] [address] 03795- 3048 Dec, [facility] [address] 45978- 7675 Nov, Essential hypertension I10 [facility] [address] 17760- 5531 Nov, Pain in right shoulder M25.511 [facility] [address] 75817- 8956 Nov, Pain in right shoulder M25.511 [facility] [id number] [place] [address] 07799- 8620 October, [facility] [id number] [place] [address] 37054- 6668 October, Pain in right shoulder M25.511 [facility] [id number] [place] [address] 70884- 4428 Sep, Arm pain, right M79.601 [facility] [id number] [place] [address] 22247- 7750 Sep, [facility] [address] 12218- 5430 Sep, Abnormal glucose R73.09 and Elevated lipids E78.5 [facility] [address] 34022- 4404 Sep, Abnormal glucose R73.09 and Elevated lipids E78.5 [facility] [id number] [place] [address] 73714- 4201 Aug, [facility] [id number] [place] [address] 85683- 0143 Aug, [facility] [id number] [place] [address] 74480- 0180 Aug, [facility] [id number] [place] [address] 29630- 2492 Aug, 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 ; Hypokalemia E87.6 ; Irritable bowel K58.9 ; Essential hypertension I10 ; Pain in right shoulder M25.511 ; Seizure disorder G40.909 and Screening for lipid disorders Z13.220 [facility] [id number] [place] [address] 72937- 8261 Jul, Other chronic pain G89.29 and Pain in right shoulder M25.511 [facility] [address] [place] [address] 2727 14 Jul, 2016 Biceps muscle strain, right, subsequent encounter S46.111D [facility] [id number] [place] [address] 75588 -1505 08 Jul, 2016 Arm pain, right M79.601 [facility] [id number] [place] [address] 83912- 5179 30 Jun, 2016 [facility] [id number] [place] [address] 75825- 5215 Jun, Acute non-recurrent frontal sinusitis J01.10 [facility] [address] 93543- 3611 14 May, 2016 Generalized abdominal pain R10.84 ; Urinary tract infection without hematuria, site unspecified N39.0 ; Hypokalemia E87.6 ; Essential hypertension I10 ; Screening for lipid disorders Z13.220 ; Seizure R56.9 and Low back pain M54.5 [facility] [id number] [place] [address] 02289- 0166 Apr, [facility] [id number] [place] [address] 23850 -7878 Feb, [facility] [id number] [place] [address] 69801- 3357 Jan, [facility] [id number] [place] [address] 77726- 4362 Dec, 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 ; Hypokalemia E87.6 ; Irritable bowel K58.9 and Nausea R11.0 [facility] [id number] [place] [address] 16458 -4182 Dec, Generalized abdominal pain R10.84 [facility] [id number] [place] [address] 70280- 1991 24 Nov, 2015 [facility] [id number] [place] [address] 12314 -3211 14 Aug, 2015 Acute bronchitis J20.9 [facility] [id number] [place] [address] 46196- 3763 14 Aug, 2015 [facility] [id number] [place] [address] 15571- 7504 08 Aug, 2015 Low back pain M54.5 ; Hypokalemia E87.6 ; Chronic migraine without aura with status migrainosus, not intractable G43.701 ; Tremor, hereditary, 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 ; Irritable bowel K58.9 ; Essential hypertension I10 and Seizure R56.9 [facility] [id number] [place] [address] 92358- 0479 Aug, [facility] [address] 19587- 6585 09 Jul, 2015 [facility] [id number] [place] [address] 82264- 8524 03 Jul, 2015 Low back pain M54.5 ; Hypokalemia E87.6 ; Chronic migraine without aura with status migrainosus, not intractable G43.701 ; Tremor, hereditary, 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 ; Irritable bowel K58.9 ; Essential hypertension I10 and Seizure R56.9 [facility] [id number] [place] [address] 18887- 9392 Jun, Hypokalemia E87.6 [facility] [id number] [place] [address] 81124- 5438 15 Jun, 2015 ADD (attention deficit disorder) without hyperactivity F90.0 ; Generalized anxiety disorder F41.1 and Major depressive disorder, recurrent episode, moderate F33.1 [facility] [id number] [place] [address] 33892- 5153 13 Jun, 2015 Low back pain M54.5 ; Hypokalemia E87.6 ; Chronic migraine without aura with status migrainosus, not intractable G43.701 ; Tremor, hereditary, 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 ; Irritable bowel K58.9 ; Essential hypertension I10 and Seizure R56.9 [facility] [address] [place] [address] 61667- 3495 Jun, [facility] [id number] [place] [address] 97267- 7642 May, [facility] [id number] [place] [address] 23220- 2680 May, Low back pain M54.5 ; Hypokalemia E87.6 ; Chronic migraine without aura with status migrainosus, not intractable G43.701 ; Tremor, hereditary, 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 ; Irritable bowel K58.9 ; Essential hypertension I10 ; Seizure R56.9 and Tinea capitis B35.0 [facility] [id number] [place] [address] 58358- 3161 17 May, 2015 Low back pain M54.5 ; Hypokalemia E87.6 ; Chronic migraine without aura with status migrainosus, not intractable G43.701 ; Tremor, hereditary, 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 ; Irritable bowel K58.9 ; Essential hypertension I10 ; Seizure R56.9 ; Otitis media, left H66.92 and Dysuria 788.1 [facility] [id number] [place] [address] 70727- 8847 14 May, 2015 Tooth pain K08.8 [facility] [id number] [place] [address] 51326- 4547 May, [facility] [id number] [place] [address] 33201- 2261 May, Low back pain M54.5 ; Hypokalemia E87.6 ; Chronic migraine without aura with status migrainosus, not intractable G43.701 ; Tremor, hereditary, 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 ; Irritable bowel K58.9 and Essential hypertension I10 [facility] [address] [place] [address] 52469- 7689 Apr, Low back pain M54.5 ; Hypokalemia E87.6 ; Chronic migraine without aura with status migrainosus, not intractable G43.701 ; Tremor, hereditary, 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 and Irritable bowel K58.9 [facility] [address] 36528- 8634 Apr, Low back pain M54.5 [facility] [id number] [place] [address] 48697- 6678 Mar, [facility] [address] 69009- 1614 Mar, Irritable bowel syndrome with diarrhea K58.0 [facility] [address] 95996- 4585 Mar, [facility] [address] 50551- 6493 Feb, [facility] [address] 49409- 5298 Feb, [facility] [address] 39009- 7075 Feb, Irritable bowel syndrome 564.1 ; Lumbago 724.2 and Cervical pain (neck) 723.1 [facility] [id number] [place] [address] 22983- 5071 Dec, Major depressive disorder, recurrent episode, moderate 296.32 and Generalized anxiety disorder 300.02 [facility] [id number] [place] [address] 13962- 8784 Nov, [facility] [id number] [place] [address] 41735- 8425 Nov, Major depressive disorder, recurrent episode, moderate 296.32 [facility] [address] 58670- 2520 Nov, Constipation 564.00 ; Nausea & vomiting 787.01 and Abdominal pain 789.00 [facility] [id number] [place] [address] 04489- 8141 Nov, [facility] [place] [facility] [address] [id number] [place] [address]- 6993 October, [facility] [place] [facility] [address] [id number] [place] [address]- 8362 October, [facility] [place] [facility] [address] [id number] [place] [address]- 2746 October, [facility] [place] [facility] [address] [id number] [place] [address]- 5085 October, [facility] [place] [facility] [address] [id number] [place] [address]- 0849 Sep, Dysuria 788.1 [facility] [place] [facility] [address] [id number] [place] [address]- 5412 Sep, [facility] [place] [facility] [address] [id number] [place] [address]- 9369 Sep, [facility] [place] [facility] [address] [id number] [place] [address]- 9520 Sep, [facility] [place] [facility] [address] [id number] [place] [address]- 9210 Sep, [facility] [place] [facility] [address] [id number] [place] [address]- 0632 Aug, [facility] [place] [facility] [address] [id number] [place] [address]- 0959 Aug, [facility] [place] [facility] [address] [id number] [place] [address]- 8401 Aug, [facility] [place] [facility] [address] [id number] [place] 0844 Aug, [facility] [place] [facility] [address] [id number] [place] 9272 Aug, [facility] [place] [facility] [address] [id number] [place] 4377 Aug, [facility] [place] [facility] [address] [id number] [place] [address]- 2546 17 Aug, 2014 [facility] [address] [id number] [place] [address]- 7556 Aug, [facility] [address] [id number] [place] [address]- 2546 Aug, [facility] [address] [id number] [place] [address]- 8356 Aug, [facility] [address] [id number] [place] [address]- 7841 Jun, [facility] [address] [id number] [place] [address]- 7744 Jun, [facility] [address] [id number] [place] [address]- 4021 Jun, [facility] [address] [id number] [place] [address]- 8395 Jun, [facility] [address] [id number] [place] [address]- 8160 May, [facility] [address] [id number] [place] [address]- 5121 May, [facility] [address] [id number] [place] [address]- 0810 May, [facility] [address] [id number] [place] [address]- 0754 May, [facility] [address] [id number] [place] [address]- 1080 May, [facility] [place] [facility] [address] [id number] [place] [address]- 2666 May, [facility] [place] [facility] [address] [id number] [place] [address]- 6176 May, [facility] [address] [id number] [place] [address]- 0007 May, [facility] [place] [facility] [address] [id number] [place] [address]- 4322 Mar, [facility] [place] [facility] [address] [id number] [place] [address]- 7216 Mar, [facility] [place] [facility] [address] [id number] [place] [address]- 0477 Mar, [facility] [place] [facility] [address] [id number] [place] [address]- 0025 Mar, [facility] [place] [facility] [address] [id number] [place] [address]- 5664 Mar, [facility] [place] [facility] [address] [id number] [place] [address]- 7087 Mar, [facility] [place] [facility] [address] [id number] [place] [address]- 8968 Mar, [facility] [place] [facility] [address] [id number] [place] [address]- 9575 Mar, [facility] [place] [facility] [address] [id number] [place] [address]- 0739 Mar, [facility] [place] [facility] [address] [id number], [place] [address]- 0906 Mar, [facility] [place] [facility] [address] [id number], [place] [address]- 2525 Mar, [facility] [place] [facility] [address] [id number], [place] [address]- 2222 Mar, [facility] [place] [facility] [address] [id number] [place] [address]- 3192 Feb, [facility] [place] [facility] [address] [id number] [place] [address]- 3717 Feb, [facility] [place] [facility] [address] [id number], [place] [address]- 9763 Feb, [facility] [place] [facility] [address] [id number], [place] [address]- 0420 Feb, [facility] [place] [facility] [address] [id number] [place] [address]- 8639 Feb, [facility] [place] [facility] [address] [id number] [place] [address]- 4911 Feb, [facility] [place] [facility] [address] [id number] [place] [address]- 4840 Jan, [facility] [place] [facility] [address] [id number] [place] [address]- 2875 Jan, [facility] [place] [facility] [address] [id number] [place] [address]- 0262 Jan, [facility] [place] [facility] [address] [id number] [place] [address]- 1792 Jan, [facility] [place] [facility] [address] [id number] [place] [address]- 3997 Jan, [facility] [place] [facility] [address] [id number] [place] [address]- 8573 Jan, [facility] [place] [facility] [address] [id number] [place] [address]- 3835 Jan, [facility] [place] [facility] [address] [id number] [place] [address]- 1775 Jan, [facility] [place] [facility] [address] [id number] [place] [address]- 3362 Dec, [facility] [place] [facility] [address] [id number] [place] [address]- 9824 Dec, [facility] [place] [facility] [address] [id number] [place] [address]- 4832 Dec, [facility] [place] [facility] [address] [id number] [place] [address]- 9848 Dec, [facility] [place] [facility] [address] [id number] [place] [address]- 0999 Dec, [facility] [place] [facility] [address] [id number] [place] [address]- 2369 Dec, [facility] [place] [facility] [address] [id number] [place] [address]- 1685 Dec, [facility] [place] [facility] [address] [id number] [place] [address]- 0074 Dec, [facility] [place] [facility] [address] [id number] [place] [address]- 2822 October, [facility] [place] [facility] [address] [id number] [place] [address]- 3846 October, [facility] [place] [facility] [address] [id number] [place] [address]- 3064 Sep, [facility] [place] [facility] [address] [id number] [place] [address]- 6938 Sep, [facility] [place] [facility] [address] [id number] [place] [address]- 9243 Sep, [facility] [place] [facility] [address] [id number] [place] [address]- 6066 Sep, [facility] [place] [facility] [address] [id number] [place] [address]- 5150 Sep, [facility] [place] [facility] [address] [id number] [place] [address]- 9113 Sep, [facility] [place] [facility] [address] [id number] [place] [address]- 2661 Sep, [facility] [place] [facility] [address] [id number] [place] [address]- 8984 Sep, [facility] [place] [facility] [address] [id number] [place] [address]- 3984 Sep, [facility] [place] [facility] [address] [id number] [place] [address]- 0082 Sep, [facility] [place] [facility] [address] [id number] [place] [address]- 7713 Sep, [facility] [place] [facility] [address] [id number] [place] [address]- 7810 Sep, [facility] [place] [facility] [address] [id number] [place] [address]- 1437 Aug, [facility] [place] [facility] [address] [id number] [place] [address]- 9841 Aug, [facility] [place] [facility] [address] [id number] [place] [address]- 0461 Aug, [facility] [place] [facility] [address] [id number] [place] [address]- 4254 Jun, [facility] [place] [facility] [address] [id number] [place] [address]- 3367 Jun, [facility] [place] [facility] [address] [id number] [place] [address]- 4497 Jun, [facility] [place] [facility] [address] [id number] [place] [address] Jun, [facility] [place] [facility] [address] [id number] [place] [address] Jun, [facility] [place] [facility] [address] [id number] [place] [address] Jun, [facility] [place] [facility] [address] [id number], [place] [address] Jun, [facility] [place] [facility] [address] [id number], [place] [address] Jun, [facility] [place] [facility] [address] [id number] [place] [address] Jun, [facility] [place] [facility] [address] [id number], [place] [address] Jun, [facility] [place] [facility] [address] [id number] [place] [address] May, [facility] [place] [facility] [address] [id number] [place] [address] May, [facility] [address] [id number] [place] [address] May, [facility] [place] [facility] [address] [id number] [place] [address] May, [facility] [place] [facility] [address] [id number] [place] [address] Apr, [facility] [place] [facility] [address] [id number] [place] [address] Apr, [facility] [place] [facility] [address] [id number] [place] [address]- [address] Apr, [facility] [place] [facility] [address] [id number] [place] [address]247 Apr, [facility] [place] [facility] [address] [id number] [place] [address] Apr, [facility] [place] [facility] [address] [id number] [place] [address]- [address] Apr, [facility] [place] [facility] [address] [id number] [place] [address] Apr, [facility] [place] [facility] [address] [facility] [id number] [place] [address] Apr, [facility] [place] [facility] [address] [id number] [place] [address] Mar, [facility] [place] [facility] [address] [id number], [place] [address] Mar, [facility] [place] [facility] [address] [id number] [place] [address] 49[address] Mar, [facility] [place] [facility] [address] [id number] [place] [address]- [address] Mar, [facility] [place] [facility] [address] [id number] [address] Mar, [facility] [place] [facility] [address] [id number] [place] [address] Feb, [facility] [address] [id number] [place] [address]- [address] Feb, [facility] [place] [facility] [address] [id number] [place] [address] Feb, [facility] [place] [facility] [address] [id number] [place] [address]- [address] 05 Feb, 2013 [facility] [address] [id number] [place] [address] Feb, [facility] [address] [id number] [place] [address] Jan, [facility] [address] [id number] [place] [address] Jan, [facility] [address] [id number] [place] [address] Nov, [facility] [place] [facility] [address] [id number] [place] [address] Nov, [facility] [place] [facility] [address] [id number] [place] [address]24 Nov, [facility] [place] [facility] [address] [id number] [place] [address] Nov, [facility] [place] [facility] [address] [id number] [place] [address] October, [facility] [place] [facility] [address] [id number] [place] [address]- [address] Sep, [facility] [place] [facility] [address] [id number] [place] [address] Aug, [facility] [place] [facility] [address] [id number] [place] [address] Aug, [facility] [place] [facility] [address] [id number] [place] [address] Aug, [facility] [place] [facility] [address] [id number] [place] [address] Aug, [facility] [place] [facility] [address] [id number] [place] [address] Jul, [facility] [place] [facility] [address] [id number] [place] [address] Jun, [facility] [place] [facility] [address] [id number], [place] [address] Jun, [facility] [place] [facility] [address] [id number] [place] [address] May, [facility] [place] [facility] [address] [id number] [place] [address] May, [facility] [place] [facility] [address] [facility] [id number][place] [id number] Mar, [facility] [place] [facility] [address] [id number], [place] [address] Mar, [facility] [place] [facility] [address] [id number], [place] [address] Mar, [facility] [place] [facility] [address] [id number] [place] [address] Mar, [facility] [place] [facility] [address] [id number] [address] Mar, [facility] [place] [facility] [address] [id number], [place] [address] Mar, [facility] [place] [facility] [address] [id number] [place] [address] Mar, [facility] [place] [facility] [address] [facility] [id number] [place] [address] Mar, [facility] [place] [facility] [address] [id number] [place] [address] Mar, [facility] [place] [facility] [address] [id number] [place] [address] 20 Mar, 2011 [facility] [address] [id number] [place] [address] 20 Mar, 2011 [facility] [place] [facility] [address] [id number] [place] [address] 17 Mar, 2011 [facility] [address] [id number] [place] [address] 17 Mar, 2011 [facility] [place] [facility] [address] [id number] [place] [address] 15 Mar, 2011 [facility] [address] [id number] [place] [address] 15 Mar, 2011 [facility] [place] [facility] [address] [id number] [place] [address] 15 Mar, 2011 [facility] [place] [facility] [address] [id number] [place] [address] 15 Mar, 2012 [facility] [place] [facility] [address] [id number] [place] [address] Mar, [facility] [place] [facility] [address] [id number] [place] [address] Mar, [facility] [place] [facility] [address] [facility] [id number] [place] [address] 08 Mar, 2012 [facility] [place] [facility] [address] [id number] [place] [address] 08 Mar, 2012 [facility] [place] [facility] [address] [id number] [place] [address] 03 Mar, 2012 [facility] [place] [facility] [address] [id number] [place] [address] Mar, [facility] [place] [facility] [address] [id number] [place] [address] 19 Feb, 2012 [facility] [place] [facility] [address] [id number] [place] [address] 18 Feb, 2011 [facility] [place] [facility] [address] [id number] [place] [address] 17 Feb, 2012 [facility] [place] [facility] [address] [id number] [place] [address] 14 Feb, 2012 [facility] [place] [facility] [address] [id number] [place] [address] 14 Feb, 2012 [facility] [place] [facility] [address] [id number] [place] [address] 12 Feb, 2012 [facility] [place] [facility] [address] [id number] [place] [address]65 10 Feb, 2012 [facility] [place] [facility] [address] [id number] [place] [address] 31 Jan, 2012 [facility] [place] [facility] [address] [id number] [place] [address] 30 Jan, 2012 [facility] [place] [facility] [address] [id number] [place] [address] 22 Jan, 2012 [facility] [place] [facility] [address] [id number] [place] [address] 20 Jan, 2012 [facility] [place] [facility] [address] [id number] [place] [address] 17 Jan, 2012 [facility] [place] [facility] [address] [id number] [place] [address] 17 Jan, 2012 [facility] [place] [facility] [address] [id number] [place] [address] 17 Jan, 2012 [facility] [place] [facility] [address] [id number] [place] [address] 16 Jan, 2012 [facility] [place] [facility] [address] [id number] [place] [address] 13 Jan, 2012 [facility] [place] [facility] [address] [id number] [place] [address] 07 Jan, 2012 [facility] [place] [facility] [address] [id number] [place] [address] 26 Dec, 2011 [facility] [place] [facility] [address] [id number] [place] [address] 24 Dec, 2011 [facility] [place] [facility] [address] [id number] [place] [address] 23 Dec, 2011 [facility] [place] [facility] [address] [id number] [place] [address] 19 Dec, 2011 [facility] [place] [facility] [address] [id number] [place] [address] 18 Dec, 2011 [facility] [place] [facility] [address] [id number] [place] [address] 17 Dec, 2011 [facility] [place] [facility] [address] [id number] [place] [address] 16 Dec, 2011 [facility] [place] [facility] [address] [id number] [place] [address] 14 Dec, 2011 [facility] [place] [facility] [address] [id number] [place] [address] Dec, [facility] [place] [facility] [address] [id number] [place] [address] Dec, [facility] [place] [facility] [address] [id number] [place] [address] 06 Dec, 2011 [facility] [place] [facility] [address] [id number] [place] [address] Nov, [facility] [place] [facility] [address] [id number] [place] [address] Nov, [facility] [place] [facility] [address] [id number] [place] [address] Nov, [facility] [place] [facility] [address] [id number] [place] [address] Nov, [facility] [place] [facility] [address] [id number] [place] [address] Nov, [facility] [place] [facility] [address] [facility] [id number] [place] [address] Nov, [facility] [address] [facility] [id number], [place] [address] Nov, [facility] [address] [id number], [place] [address] Nov, [facility] [address] [id number], [place] [address] Nov, [facility] [address] [facility] [id number], [place] [address] Nov, [facility] [id number], [place] [address] October, IMMUNIZATIONS No Known Immunizations SOCIAL HISTORY Never Assessed REASON FOR VISIT fu breathing issues----DBennettRN PLAN OF CARE Activity Details Follow Up 3 Months, prn Reason: VITAL SIGNS Height 65 in 2017-04-30 Weight 190 lbs 2017-04-30 Temperature 98.1 degrees Fahrenheit 2017-04-30 Heart Rate 70 bpm 2017-04-30 Respiratory Rate 20 2017-04-30 BMI 31.61 kg/m2 2017-04-30 Blood pressure systolic 108 mmHg 2017-04-30 Blood pressure diastolic 80 mmHg 2017-04-30 MEDICATIONS Medication Instructions Dosage Frequency Start Date End Date Duration Status Amlodipine Besylate 2.5 MG Orally Once a day 1 tablet 24h Jan, 30 day(s) Active Amitriptyline HCl 10 mg Orally Once a day 1 tablet at hs 24h 30 Active Propranolol HCl 80 mg Orally Twice a day 1 tablet 12h 30 Active Celebrex 200 mg Orally Once a day 1 capsule with food 24h Aug, 30 day(s) Not-Taking Omeprazole 40 mg Orally Once a day 1 capsule 24h May, Active Potassium Chloride ER 10 MEQ Orally Twice a day 1 tablet 12h Jul, 30 days Active Albuterol Sulfate 108 (90 Base) mcg/act inhale 2 puffs by inhalation route every 4-6 hours as neededPRNcough or wheezing Nov, Active Dicyclomine HCl 20 mg Orally Four times a day 1 tablet 6h Active RESULTS No Results PROCEDURES Procedure Date Ordered Result [facility] Apr [facility], 2017 FELICE, ROUTINE* Apr 30, 2017 INSTRUCTIONS MEDICATIONS ADMINISTERED No Known Medications [...]
--- OUTSIDE RECORDS SUMMARY | 2018-01-12 09:02 | XMS REPORT ---
Author DIONY Zuluaga Organization [employer] Address Unknown Phone Unavailable Care Team Providers Care Engineering Project Manager Name Role Phone DIONY XIONG CP [...] Start Date End Date Status Dosage Kasie-PEG [facility] [address]-13 250 MG Orally Once a day Jun 02, 2015 Jun 07, 2015 1 tablets after a meal Griseofulvin Microsize [facility] [address]-43 125 MG/5ML Orally Once a day Jun 07, 2015 Jun 21, 2015 20 ml after a meal Results No Known Results Summary Purpose [employer] Submission
--- OUTSIDE RECORDS SUMMARY | 2018-01-12 09:03 | XMS REPORT ---
Author Author DIONY XIONG [facility] Address [address] [place] [address] Care Team Providers Care Farmer And Grazier Name Role Phone DIONY XIONG Unavailable PROBLEMS Type Condition ICD9-CM Code [id number] Code Onset Dates Condition Status SNOMED Code Problem Tremor, hereditary, 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 Active 634962701 Problem Hypokalemia E87.6 Active 81291222 Problem Chronic migraine without aura with status migrainosus, not intractable G43.701 Active 246678779 Problem Abnormal glucose R73.09 Active 774593360 Problem Major depressive disorder, recurrent episode, moderate F33.1 Active 460830977 Problem Irritable bowel K58.9 Active 66878972 Problem Primary insomnia F51.01 Active 9213111 Problem Elevated lipids E78.5 Active 770978256141 Problem 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 Active 49341472 Problem Essential hypertension I10 Active 99232222 Problem Seizure disorder G40.909 Active 014884711 Problem Other chronic pain G89.29 Active 90014820 ALLERGIES Substance Reaction Event Type Date Status Morphine Sulfate rebound headaches Drug Allergy May, Active Amoxicillin itching Drug Allergy May, Active SOCIAL HISTORY No smoking Hx information available PLAN OF CARE Activity Details Follow Up 3 Months Reason:gastritis VITAL SIGNS Height 65 in 2016-05-16 Weight 153.5 lbs 2016-05-16 Temperature 98.7 degrees Fahrenheit 2016-05-16 Heart Rate 88 bpm 2016-05-16 Respiratory Rate 20 2016-05-16 BMI 25.54 kg/m2 2016-05-16 Blood pressure systolic 118 mmHg 2016-05-16 Blood pressure diastolic 69 mmHg 2016-05-16 MEDICATIONS Medication Instructions Dosage Frequency Start Date End Date Duration Status Potassium Chloride ER 10 MEQ Orally Twice a day 1 tablet 12h Active Omeprazole 40 mg Orally Once a day 1 capsule 24h May, Active Propranolol HCl 80 MG Orally Twice a day 1 tablet 12h Active Dicyclomine HCl 20 mg Orally Four times a day 1 tablet 6h 30 days Active Cyclobenzaprine HCl 5 mg Orally as needed at bedtime, use sparingly 1 tablet May, Active Albuterol Sulfate 90 mcg/actuation inhale 2 puffs by inhalation route every 4-6 hours as neededPRNcough or wheezing Nov, Active Bactrim DS 800-160 MG Orally Twice a day 1 tablet 12h May,May 03 days Active Amlodipine Besylate 5 MG Orally Once a day 1/2 tablet 24h Active RESULTS Name Result Date Reference Range UA LONG DIP (IN HOUSE) 2016-05-16 Lot # [id number] Exp date Clarity Cloudy Color LightYellow Odor No GLU Negative JANE Negative KET Negative SG 1.015 BLO Negative pH 7.0 Protein Negative URO 0.2 NIT Negative BLAZE Trace Lot # Exp date PROCEDURES Procedure Date Ordered Related Diagnosis Body Site URINALYSIS, AUTO, W/O SCOPE May 16, 2016 Office Visit, Est Pt., Level 4 May 16, 2016 IMMUNIZATIONS No Known Immunizations
--- OUTSIDE RECORDS SUMMARY | 2018-01-12 09:03 | XMS REPORT ---
Author Author JESUS COOMBS Organization [facility] Address [address] [place] [address] Care Team Providers Care Want Ad Supervisor Name Role Phone JESUS COOMBS Unavailable PROBLEMS Type Condition ICD9-CM Code [id number] Code Onset Dates Condition Status SNOMED Code Problem Irritable bowel K58.9 Active 32024059 Problem Hypokalemia E87.6 Active 38171660 Problem Chronic migraine without aura with status migrainosus, not intractable G43.701 Active 103750431 Problem Abnormal glucose R73.09 Active 712777774 Problem Major depressive disorder, recurrent episode, moderate F33.1 Active 008532551 Problem Tremor, hereditary, 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 Active 849842800 Problem Primary insomnia F51.01 Active 5816706 Problem Elevated lipids E78.5 Active 753546140677 Problem 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 Active 96777871 Problem Essential hypertension I10 Active 73165636 Problem Seizure disorder G40.909 Active 786578759 Problem Other chronic pain G89.29 Active 38201335 ALLERGIES Substance Reaction Event Type Date Status Morphine Sulfate rebound headaches Drug Allergy Jul, Active Amoxicillin itching Drug Allergy Jul, Active SOCIAL HISTORY Never Assessed PLAN OF CARE Activity Details Follow Up with [facility] as scheduled Reason: VITAL SIGNS Height 65 in 2016-07-17 Weight 166.7 lbs 2016-07-17 Temperature 98.1 degrees Fahrenheit 2016-07-17 Heart Rate 106 bpm 2016-07-17 Respiratory Rate 22 2016-07-17 BMI 27.74 kg/m2 2016-07-17 Blood pressure systolic 108 mmHg 2016-07-17 Blood pressure diastolic 80 mmHg 2016-07-17 MEDICATIONS Medication Instructions Dosage Frequency Start Date End Date Duration Status Cyclobenzaprine HCl 10 mg Orally Three times a day 1 tablet 8h 08 Jul, 2016 Active Dicyclomine HCl 20 mg Orally Four times a day 1 tablet 6h 30 Active Potassium Chloride ER 10 MEQ Orally Twice a day 1 tablet 12h Active Mobic 7.5 MG Orally twice a day 1 tablet 12h Jul, Aug, 30 day(s) Active Albuterol Sulfate 90 mcg/actuation inhale 2 puffs by inhalation route every 4-6 hours as neededPRNcough or wheezing Nov, Active Amlodipine Besylate 5 mg Orally Once a day 1 tablet 24h Active Omeprazole 40 mg Orally Once a [...] hysterectomy-total 2005 Surgical History lower GI [facility] [place] -not sure results Surgical History EGD Hospitalization History Hospitalization for surgery Hospitalization History [facility]- Went through the ER and was hosp for 3 days- GI related 10/2014 Hospitalization History [facility]--multiple seizures 03/2015 Hospitalization History infection in colon, seizures 05/2015 Hospitalization History Hypokalemia and high blood pressure 06/15/2015
--- OUTSIDE RECORDS SUMMARY | 2018-01-12 09:03 | XMS REPORT ---
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 Active 02789482 Problem Essential hypertension I10 Active 27531045 Problem Intractable chronic migraine without aura and with status migrainosus G43.711 Active 419757809 Problem Moderate persistent asthma with exacerbation J45.41 Active 865967203 Problem Seizure disorder G40.909 Active 824975612 Problem Other chronic pain G89.29 Active 04765783 Problem Moderate persistent asthma without complication J45.40 Active 304249618 Problem Primary insomnia F51.01 Active 4226327 Problem Abnormal glucose R73.09 Active 865890330 Problem Major depressive disorder, recurrent episode, moderate F33.1 Active 476387279 Problem Tremor, hereditary, 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 Active 908292573 Problem Elevated liver enzymes R74.8 Active 448779050 Problem Irritable bowel K58.9 Active 82936774 Problem Hyperlipidemia LDL goal <100 E78.5 Active 25357386 Problem Chronic migraine without aura with status migrainosus, not intractable G43.701 Active 519048149 ALLERGIES No Information ENCOUNTERS Encounter Location Date Diagnosis [facility] [address] [facility] [id number] [address] Sep, [facility] [address] [address] Sep, [facility] [address] [facility] [id number] [address] 6033 Aug, Elevated liver enzymes R74.8 and Hyperlipidemia LDL goal < 100 E78.5 [place] [id number] [place] [address] 45666- 4652 Aug, [place] [address] [place] [id number] [place] [address] 86732- 2622 Jul, [place] [address] [id number] [place] [address] 35992- 4988 Jul, Intractable chronic migraine without aura and with status migrainosus G43.711 ; Fever, unspecified fever cause R50.9 and Elevated liver enzymes R74.8 [place] [address] [place] [id number] [place] [address] 63632- 2075 Jun, Difficulty urinating R39.198 and Moderate persistent asthma with exacerbation J45.41 [place] [id number] [place] [address] 89319- 3620 Jun, [place] [id number] [place] [address] 42270- 3771 Jun, Moderate persistent asthma with exacerbation J45.41 [place] [id number] [place] [address] 25156- 0504 May, Elevated liver enzymes R74.8 and Hyperlipidemia LDL goal < 100 E78.5 [place] [id number] [place] [address] 59130- 5285 May, Elevated lipids E78.5 [place] [id number] [place] [address] 05325- 7192 Apr, Elevated liver enzymes R74.8 [place] [id number] [place] [address] 19630- 1868 Apr, Elevated liver enzymes R74.8 [place] [id number] [place] [address] 63748- 7562 Apr, Superior glenoid labrum lesion of right shoulder, subsequent encounter S43.431D [place] [id number] [place] [address] 74885- 9987 Apr, Hypokalemia E87.6 ; Major depressive disorder, recurrent episode, moderate F33.1 ; Other abnormalities of breathing R06.89 and Dyspnea, unspecified R06.00 [facility] [id number] [place] [address] 18028 -0055 Mar, Moderate persistent asthma without complication J45.40 [facility] [address] [id number] [place] [address] 74616- 3929 Mar, Impingement syndrome of right shoulder M75.41 [facility] [id number] [place] [address] 86966- 3621 Jan, [place] [address] 23493- 8200 Jan, Chronic migraine without aura with status migrainosus, not intractable G43.701 ; Essential hypertension I10 ; Irritable bowel K58.9 ; Primary insomnia F51.01 and Hypokalemia E87.6 [facility] [id number] [place] [address] 71744- 3955 Dec, [place] [address] 27968- 5968 Dec, Pain in right shoulder M25.511 [place] [id number] [place] [address] 77835- 8957 Dec, Essential hypertension I10 [facility] [id number] [place] [address] 84034- 8713 Dec, [facility] [id number] [place] [address] 34342- 2028 Nov, Essential hypertension I10 [place] [address] 09600- 3273 14 Nov, 2016 Pain in right shoulder M25.511 [facility] [id number] [place] [address] 99857- 2012 Nov, Pain in right shoulder M25.511 [facility] [id number] [place] [address] 96717- 4760 October, [place] [id number] [place] [address] 95679- 1779 October, Pain in right shoulder M25.511 [place] [id number] [place] [address] 02483- 5291 Sep, Arm pain, right M79.601 [place] [id number] [place] [address] 56244- 7822 Sep, [place] [id number] [place] [address] 56226- 6290 Sep, Abnormal glucose R73.09 and Elevated lipids E78.5 [place] [id number] [place] [address] 56860- 4044 Sep, Abnormal glucose R73.09 and Elevated lipids E78.5 [place] [id number] [place] [address] 77706- 1697 Aug, [place] [id number] [place] [address] 02322- 1297 Aug, [place] [id number] [place] [address] 05689- 1272 Aug, [place] [id number] [place] [address] 19379- 3363 Aug, 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 ; Hypokalemia E87.6 ; Irritable bowel K58.9 ; Essential hypertension I10 ; Pain in right shoulder M25.511 ; Seizure disorder G40.909 and Screening for lipid disorders Z13.220 [place] [id number] [place] [address] 71008- 1977 Jul, Other chronic pain G89.29 and Pain in right shoulder M25.511 [place] [id number] [place] [address] 31858- 3397 14 Jul, 2016 Biceps muscle strain, right, subsequent encounter S46.111[facility] [id number] [place] [address] 87180 -6361 Jul, Arm pain, right M79.601 [place] [address] [id number] [place] [address] 91397- 4436 Jun, [place] [id number] [place] [address] 56375- 3147 Jun, Acute non-recurrent frontal sinusitis J01.10 [place] [address] [id number] [place] [address] 65889- 3596 14 May, 2016 Generalized abdominal pain R10.84 ; Urinary tract infection without hematuria, site unspecified N39.0 ; Hypokalemia E87.6 ; Essential hypertension I10 ; Screening for lipid disorders Z13.220 ; Seizure R56.9 and Low back pain M54.5 [place] [id number] [place] [address] 74833- 7005 Apr, [facility] [address] [id number] [place] [address] 52655 -4035 Feb, [place] [id number] [place] [address] 60080- 9167 Jan, [place] [id number] [place] [address] 81976- 8085 Dec, 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 ; Hypokalemia E87.6 ; Irritable bowel K58.9 and Nausea R11.0 [facility] [id number] [place] [address] 73109 -2305 Dec, Generalized abdominal pain R10.84 [place] [address] [id number] [place] [address] 53290- 2013 24 Nov, 2015 [facility] [place] [address] [id number] [place] [address] 27132 -9921 14 Aug, 2015 Acute bronchitis J20.9 [place] [address] [place] [address]- 0252 14 Aug, 2015 [place] [address] [id number] [place] [address] 72269- 5069 08 Aug, 2015 Low back pain M54.5 ; Hypokalemia E87.6 ; Chronic migraine without aura with status migrainosus, not intractable G43.701 ; Tremor, hereditary, 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 ; Irritable bowel K58.9 ; Essential hypertension I10 and Seizure R56.9 [place] [address] [id number] [place] [address] 40978- 0440 07 Aug, 2015 [place] [address] 38596- 2168 09 Jul, 2015 [place] [address] 47194- 3716 03 Jul, 2015 Low back pain M54.5 ; Hypokalemia E87.6 ; Chronic migraine without aura with status migrainosus, not intractable G43.701 ; Tremor, hereditary, 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 ; Irritable bowel K58.9 ; Essential hypertension I10 and Seizure R56.9 [place] [address] 54941- 7479 20 Jun, 2015 Hypokalemia E87.6 [place] [address] [address] [id number] [place] [address] 12931- 0445 15 Jun, 2015 ADD (attention deficit disorder) without hyperactivity F90.0 ; Generalized anxiety disorder F41.1 and Major depressive disorder, recurrent episode, moderate F33.1 [place] [address] [id number] [place] [address] 45965- 7819 13 Jun, 2015 Low back pain M54.5 ; Hypokalemia E87.6 ; Chronic migraine without aura with status migrainosus, not intractable G43.701 ; Tremor, hereditary, 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 ; Irritable bowel K58.9 ; Essential hypertension I10 and Seizure R56.9 [place] [address] 87380- 7914 Jun, [place] [address] [address]- 3463 May, [place] [address] [id number] [place] [address] 95302- 1941 May, Low back pain M54.5 ; Hypokalemia E87.6 ; Chronic migraine without aura with status migrainosus, not intractable G43.701 ; Tremor, hereditary, 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 ; Irritable bowel K58.9 ; Essential hypertension I10 ; Seizure R56.9 and Tinea capitis B35.0 [place] [address] [id number] [place] [address] 25196- 9759 May, Low back pain M54.5 ; Hypokalemia E87.6 ; Chronic migraine without aura with status migrainosus, not intractable G43.701 ; Tremor, hereditary, 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 ; Irritable bowel K58.9 ; Essential hypertension I10 ; Seizure R56.9 ; Otitis media, left H66.92 and Dysuria 788.1 [place] [address] [id number] [place] [address] 01705- 2134 May, Tooth pain K08.8 [place] [address] [id number] [place] [address] 32746- 7946 May, [place] [address] [id number] [place] [address] 38372- 8390 May, Low back pain M54.5 ; Hypokalemia E87.6 ; Chronic migraine without aura with status migrainosus, not intractable G43.701 ; Tremor, hereditary, 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 ; Irritable bowel K58.9 and Essential hypertension I10 [place] [address] [address] [id number] [place] [address] 23614- 2895 Apr, Low back pain M54.5 ; Hypokalemia E87.6 ; Chronic migraine without aura with status migrainosus, not intractable G43.701 ; Tremor, hereditary, 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 and Irritable bowel K58.9 [facility] [address] [place] [address] 55248- 1652 Apr, Low back pain M54.5 [facility] [id number] [place] [address] 55571- 2320 Mar, [facility] [id number] [place] [address] 49458- 6151 Mar, Irritable bowel syndrome with diarrhea K58.0 [facility] [id number] [place] [address] 95115- 7553 Mar, [facility] [address] 81581- 1279 Feb, [facility] [address] [place] [id number] [place] [address] 23466- 1242 Feb, [facility] [address] [id number] [place] [address] 26988- 6477 Feb, Irritable bowel syndrome 564.1 ; Lumbago 724.2 and Cervical pain (neck) 723.1 [facility] [address] [place] [id number] [place] [address] 47352- 8390 Dec, Major depressive disorder, recurrent episode, moderate 296.32 and Generalized anxiety disorder 300.02 [facility] [address] [id number] [place] [address] 73136- 7045 Nov, [facility] [address] [id number] [place] [address] 05542- 9498 Nov, Major depressive disorder, recurrent episode, moderate 296.32 [facility] [address] [id number] [place] [address] 59535- 7601 Nov, Constipation 564.00 ; Nausea & vomiting 787.01 and Abdominal pain 789.00 [facility] [address] [place] [id number] [place] [address] 39897- 7708 Nov, [facility] [address] 29715- 8258 October, [facility] [address] [id number] [place] [address]- 4953 October, [facility] [address] [id number] [place] [address]- 5913 October, [facility] [address] [facility] [id number] [place] [address]- 8506 October, [facility] [place] [facility] [address] [facility] [id number] [place] [address]- 2054 Sep, Dysuria 788.1 [facility] [address] [id number] [place] [address]- 8374 Sep, [facility] [place] [facility] [address] [facility] [id number] [place] [address]- 1231 Sep, [facility] [address] [facility] [id number] [place] [address]- 7738 Sep, [facility] [place] [facility] [address] [facility] [id number] [place] [address]- 7388 Sep, [facility] [place] [facility] [address] [facility] [id number] [place] [address]- 8911 Aug, [facility] [place] [facility] [address] [facility] [id number] [place] [address]- 2316 Aug, [facility] [place] [facility] [address] [facility] [id number] [place] [address]- 4594 Aug, [facility] [place] [facility] [address] [id number] [place] [address]- 9623 Aug, [facility] [place] [facility] [address] [id number] [place] [address]- 7016 Aug, [facility] [place] [facility] [address] [facility] [id number] [place] 0651 Aug, [facility] [place] [facility] [address] [facility] [id number] [place] [address]- 6467 Aug, [facility] [place] [facility] [address] [id number] [place] [address]- 5640 Aug, [facility] [place] [facility] [address] [id number] [place] [address]- 9959 Aug, [facility] [place] [facility] [address] [id number] [place] [address]- 5906 Aug, [facility] [place] [facility] [address] [id number] [place] [address]- 9290 Jun, [facility] [place] [facility] [address] [id number] [place] [address]- 1465 Jun, [facility] [place] [facility] [address] [id number] [place] [address]- 1667 Jun, [facility] [place] [facility] [address] [id number] [place] [address]- 0385 Jun, [facility] [place] [facility] [address] [id number] [place] [address]- 8848 May, [facility] [place] [facility] [address] [id number] [place] [address]- 0254 May, [facility] [place] [facility] [address] [id number] [place] [address]- 0160 May, [facility] [place] [facility] [address] [id number] [place] [address]- 9764 May, [facility] [place] [facility] [address] [id number] [place] [address]- 9820 May, [facility] [place] [facility] [address] [id number] [place] [address]- 2515 May, [facility] [place] [facility] [address] [id number] [place] [address]- 4669 May, [facility] [place] [facility] [address] [id number] [place] [address]- 0152 May, [facility] [place] [facility] [address] [id number] [address]- 5003 Mar, [facility] [place] [facility] [address] [id number] [place] [address]- 9486 Mar, [facility] [place] [facility] [address] [id number] [place] [address]- 3680 Mar, [facility] [place] [facility] [address] [id number] [place] [address]- 8122 Mar, [facility] [place] [facility] [address] [id number] [place] [address]- 1546 Mar, [facility] [place] [facility] [address] [id number] [place] [address]- 1512 Mar, [facility] [place] [facility] [address] [id number] [place] [address]- 5765 Mar, [facility] [place] [facility] [address] [id number] [place] [address]- 1992 Mar, [facility] [place] [facility] [address] [id number] [place] [address]- 7221 Mar, [facility] [place] [facility] [address] [id number] [place] [address]- 9330 Mar, [facility] [place] [facility] [address] [id number] [place] [address]- 2414 Mar, [facility] [place] [facility] [address] [id number] [address]- 2164 Mar, [facility] [place] [facility] [address] [id number] [address]- 0524 Feb, [facility] [place] [facility] [address] [id number] [place] [address]- 2837 24 Feb, 2014 [facility] [place] [facility] [address] [id number] [place] [address]- 8013 Feb, [facility] [place] [facility] [address] [id number] [place] [address]- 1169 Feb, [facility] [place] [facility] [address] [id number] [place] [address]- 9135 Feb, [facility] [place] [facility] [address] [id number] [place] [address]- 7775 Feb, [facility] [place] [facility] [address] [id number] [place] [address]- 5367 Jan, [facility] [place] [facility] [address] [id number] [place] [address]- 7167 Jan, [facility] [place] [facility] [address] [id number] [place] [address]- 4633 Jan, [facility] [place] [facility] [address] [id number] [place] [address]- 3363 Jan, [facility] [place] [facility] [address] [id number] [place] [address]- 3294 Jan, [facility] [place] [facility] [address] [id number] [place] [address]- 2601 Jan, [facility] [place] [facility] [address] [id number] [place] [address]- 4991 Jan, [facility] [place] [facility] [address] [id number] [place] [address]- 2526 Jan, [facility] [place] [facility] [address] [id number] [place] [address]- 3209 Dec, [facility] [place] [facility] [address] [id number] [place] [address]- 1968 Dec, [facility] [place] [facility] [address] [id number] [place] [address]- 8987 Dec, [facility] [place] [facility] [address] [id number] [place] [address]- 1854 Dec, [facility] [place] [facility] [address] [id number] [place] [address]- 9347 Dec, [facility] [place] [facility] [address] [id number] [place] [address]- 1697 Dec, [facility] [place] [facility] [address] [id number] [place] [address]- 4447 Dec, [facility] [place] [facility] [address] [id number] [place] [address]- 7126 Dec, [facility] [place] [facility] [address] [id number] [place] [address]- 5855 October, [facility] [place] [facility] [address] [id number] [place] [address]- 3229 October, [facility] [place] [facility] [address] [id number] [place] [address]- 6593 Sep, [facility] [place] [facility] [address] [id number] [place] [address]- 8930 Sep, [facility] [place] [facility] [address] [id number] [place] [address]- 6605 Sep, [facility] [place] [facility] [address] [id number] [place] [address]- 6346 Sep, [facility] [place] [facility] [address] [id number] [place] [address]- 6200 Sep, [facility] [place] [facility] [address] [id number] [place] [address]- 1590 Sep, [facility] [place] [facility] [address] [id number] [place] [address]- 7704 Sep, [facility] [place] [facility] [address] [id number] [place] [address] Sep, [facility] [place] [facility] [address] [id number] [place] [address] Sep, [facility] [place] [facility] [address] [id number] [place] [address] Sep, [facility] [place] [facility] [address] [id number] [place] [address] Sep, [facility] [place] [facility] [address] [id number] [address] Sep, [facility] [place] [facility] [address] [id number] [place] [address] Aug, [facility] [place] [facility] [address] [id number] [place] [address] Aug, [facility] [place] [facility] [address] [id number] [place] [address] Aug, [facility] [place] [facility] [address] [id number] [place] [address] Jun, [facility] [place] [facility] [address] [id number] [place] [address] Jun, [facility] [place] [facility] [address] [id number] [place] [address] Jun, [facility] [place] [facility] [address] [id number] [place] [address] Jun, [facility] [place] [facility] [address] [id number] [place] [address] Jun, [facility] [place] [facility] [address] [id number] [place] [address] Jun, [facility] [place] [facility] [address] [facility] [id number] [place] [address] Jun, [facility] [place] [facility] [address] [id number] [address] Jun, [facility] [place] [facility] [address] [id number] [place] [address] Jun, [facility] [place] [facility] [address] [id number] [place] [address] Jun, [facility] [place] [facility] [address] [id number] [place] [address] May, [facility] [place] [facility] [address] [id number] [place] [address] May, [facility] [place] [facility] [address] [id number] [place] [address] May, [facility] [place] [facility] [address] [id number] [place] [address] May, [facility] [place] [facility] [address] [id number] [place] [address] Apr, [facility] [place] [facility] [address] [id number] [place] [address] Apr, [facility] [place] [facility] [address] [id number] [place] [address] Apr, [facility] [place] [facility] [address] [id number] [place] [address] Apr, [facility] [place] [facility] [address] [id number] [place] [address] Apr, [facility] [place] [facility] [address] [id number] [place] [address] Apr, [facility] [place] [facility] [address] [id number] [place] [address] Apr, [facility] [place] [facility] [address] [id number] [place] [address] Apr, [facility] [place] [facility] [address] [id number] [place] [address] Mar, [facility] [place] [facility] [address] [id number] [place] [address] Mar, [facility] [place] [facility] [address] [id number] [place] [address] Mar, [facility] [place] [facility] [address] [id number] [place] [address] Mar, [facility] [place] [facility] [address] [id number] [place] [address] Mar, [facility] [place] [facility] [address] [id number] [place] [address] 23 Feb, 2013 [facility] [place] [facility] [address] [id number] [place] [address] 11 Feb, 2013 [facility] [place] [facility] [address] [id number] [place] [address] 05 Feb, 2013 [facility] [place] [facility] [address] [id number] [place] [address] 05 Feb, 2013 [facility] [place] [facility] [address] [id number] [place] [address] 04 Feb, 2013 [facility] [place] [facility] [address] [id number] [place] [address] Jan, [facility] [place] [facility] [address] [id number] [place] [address] Jan, [facility] [place] [facility] [address] [id number] [place] [address] Nov, [facility] [place] [facility] [address] [id number] [place] [address] Nov, [facility] [place] [facility] [address] [id number] [place] [address] Nov, [facility] [place] [facility] [address] [id number] [place] [address] Nov, [facility] [place] [facility] [address] [id number] [place] [address] October, [facility] [place] [facility] [address] [id number] [address] Sep, [facility] [place] [facility] [address] [id number] [place] [address] Aug, [facility] [place] [facility] [address] [id number] [place] [address] 26 Aug, 2012 [facility] [place] [facility] [address] [id number] [place] [address] 99[address] 16 Aug, 2012 [facility] [place] [facility] [address] [id number] [place] [address] 49[address] Aug, [facility] [place] [facility] [address] [id number] [place] [address] Jul, [facility] [place] [facility] [address] [id number] [place] [address] 269[address] Jun, [facility] [place] [facility] [address] [id number] [place] [address] Jun, [facility] [place] [facility] [address] [id number] [place] [address] May, [facility] [place] [facility] [address] [id number] [place] [address] May, [facility] [place] [facility] [address] [id number] [place] [id number] Mar, [facility] [place] [facility] [address] [id number] [place] [address] Mar, [facility] [place] [facility] [address] [id number] [place] [address] Mar, [facility] [place] [facility] [address] [id number] [place] [address] Mar, [facility] [place] [facility] [address] [id number] [place] [address] 7[address] Mar, [facility] [place] [facility] [address] [id number] [place] [address] 40[address] Mar, [facility] [place] [facility] [address] [id number] [place] [address] 89[address] Mar, [facility] [place] [facility] [address] [id number] [place] [address] Mar, [facility] [place] [facility] [address] [id number] [place] [address] Mar, [facility] [place] [facility] [address] [facility] [id number] [place] [address] Mar, [facility] [place] [facility] [address] [id number] [place] [address] 125[address] 20 Mar, 2011 [facility] [place] [facility] [address] [id number] [place] [address] 5[address] Mar, 2011 [facility] [place] [facility] [address] [id number] [place] [address] 1857 17 Mar, 2011 [facility] [place] [facility] [address] [id number] [place] [address] 32[address] 15 Mar, 2011 [facility] [place] [facility] [address] [id number] [place] [address] 15 Mar, 2011 [facility] [place] [facility] [address] [id number] [place] [address] 295[address] 15 Mar, 2012 [facility] [place] [facility] [address] [id number] [place] [address] 55[address] 15 Mar, 2012 [facility] [place] [facility] [address] [id number] [place] [address] Mar, [facility] [place] [facility] [address] [id number] [place] [address] 6[address] Mar, [facility] [place] [facility] [address] [id number] [place] [address] Mar, [facility] [place] [facility] [address] [id number] [place] [address] 6[address] Mar, [facility] [place] [facility] [address] [id number] [place] [address] 99[address] Mar, [facility] [place] [facility] [address] [id number] [place] [address] 35[address] Mar, [facility] [place] [facility] [address] [id number] [place] [address] 1524 19 Feb, 2012 [facility] [place] [facility] [address] [id number] [place] [address] 95[address] 18 Sep2011 [facility] [place] [facility] [address] [id number] [place] [address] 4727 17 Feb, 2012 [facility] [place] [facility] [address] [id number] [place] [address] 3848 14 Feb, 2012 [facility] [place] [facility] [address] [id number] [place] [address] 4586 14 Feb, 2012 [facility] [place] [facility] [address] [id number] [place] [address] 0136 12 Feb, 2012 [facility] [place] [facility] [address] [id number] [place] [address] 7024 10 Feb, 2012 [facility] [place] [facility] [address] [id number] [place] [address] 7[address] 31 Jan, 2012 [facility] [place] [facility] [address] [id number] [place] [address] 8135 30 Jan, 2012 [facility] [place] [facility] [address] [id number] [place] [address] 2188 22 Jan, 2012 [facility] [place] [facility] [address] [id number] [place] [address] 6265 20 Jan, 2012 [facility] [place] [facility] [address] [id number] [place] [address] 0754 17 Jan, 2012 [facility] [place] [facility] [address] [id number] [place] [address] 7[address] 17 Jan, 2012 [facility] [place] [facility] [address] [id number] [place] [address]- 0768 17 Jan, 2012 [facility] [place] [facility] [address] [id number] [place] [address] 0998 16 Jan, 2012 [facility] [place] [facility] [address] [id number] [place] [address]- 5267 13 Jan, 2012 [facility] [place] [facility] [address] [id number] [place] [address]- 7807 07 Jan, 2012 [facility] [place] [facility] [address] [id number] [place] [address] 7467 Dec, [facility] [place] [facility] [address] [id number] [place] [address] 9181 24 Dec, 2011 [facility] [address] [id number] [place] [address]- 2686 23 Dec, 2011 [facility] [place] [facility] [address] [id number] [place] [address] 2546 19 Dec, 2011 [facility] [address] [id number] [place] [address]- 9056 18 Dec, 2011 [facility] [place] [facility] [address] [id number] [place] [address] 2546 17 Dec, 2011 [facility] [address] [id number] [place] [address]- 3983 16 Dec, 2011 [facility] [address] [id number] [place] [address] 0355 14 Dec, 2011 [facility] [address] [id number] [place] [address]- 0794 Dec, [facility] [address] [id number] [place] [address]- 8[address] Dec, [facility] [place] [facility] [address] [id number] [place] [address]- 8271 06 Dec, 2011 [facility] [address] [id number] [place] [address] 3185 Nov, [facility] [place] [facility] [address] [id number] [place] [address] 2540 Nov, [facility] [place] [facility] [address] [id number] [place] [address] 7695 Nov, [facility] [place] [facility] [address] [id number] [place] [address]- 3885 Nov, [facility] [place] [facility] [address] [id number] [place] [address]- 2543 Nov, [facility] [place] [facility] [address] [id number] [place] [address]- 69[address] Nov, [facility] [address] [facility] [id number] [place] [address] 94[address] Nov, [facility] [address] [facility] [id number] [address] Nov, [facility] [address] [facility] [id number] [address] Nov, [facility] [address] [facility] [id number] [address] Nov, [facility] [address] [facility] [id number] [address] October, IMMUNIZATIONS No Known Immunizations SOCIAL HISTORY Never Assessed REASON FOR VISIT phone call PLAN OF CARE VITAL SIGNS MEDICATIONS [...]
--- OUTSIDE RECORDS SUMMARY | 2018-01-12 09:03 | XMS REPORT ---
Author PILY Ivey [facility] eClinicalWorks Address Unknown Phone Unavailable Care Team Providers Care Estimator Binding Name Role Phone PILY PORTILLO CP Unavailable Allergies, Adverse Reactions, Alerts Substance Reaction Event Type Morphine causes severe migraines Drug Allergy Problems Problem Type Condition ICD-9 Code Onset Dates Condition Status Problem Unspecified otalgia 388.70 Active Problem Dysuria 788.1 Active Problem Unspecified backache 724.5 Active Problem Asthma, unspecified, unspecified status 493.90 Active Problem Attention deficit disorder of childhood without mention of hyperactivity 314.00 Active Problem Irritable bowel syndrome 564.1 Active Assessment Irritable bowel syndrome 564.1 Active Assessment Lumbago 724.2 Active Problem Cervical pain (neck) 723.1 Active [...] depressive disorder, recurrent episode, mild 296.31 Active Assessment Cervical pain (neck) 723.1 Active Problem Posttraumatic stress disorder 309.81 Active Problem Dental caries limited to enamel 521.01 Active Medications Medication Code System Code Instructions Start Date End Date Status Dosage Propranolol HCl [facility] [address]-69 10 MG Orally Twice a day 1 tablet Albuterol Sulfate [facility] [address]-36 90 mcg/actuation November 06, 2011 inhale 2 puffs by inhalation route every 4-6 hours as neededPRNcough or wheezing Hyoscyamine Sulfate [facility] 29500574137 0.125MG 1 Tablet by Sublingual route every 6 hours PRN spasms Zoloft [facility] [address]-34 100 MG Orally Once a day 1.5 tablet Amitriptyline HCl [facility] [address]-28 25 MG Orally Once a day December 10, 2014 1 tablet at bedtime Topamax [facility] [address]-86 200 MG Orally Twice a day 1 tablet Dicyclomine HCl [facility] 07495065215 20MG Orally Four times a day 1 tablet Procedures Procedure Coding System Code Date Office Visit, Est Pt., Level 3 CPT-4 43434 Feb 03, 2015 Vital Signs Date/Time: Feb 03, 2015 Temperature 97.0 F Weight 186.0 lbs Height 65 in BMI 30.95 Index Blood Pressure Diastolic 78 mmHg Blood Pressure Systolic 126 mmHg Cardiac Monitoring Heart Rate 88 bpm Results No Known Results Summary Purpose eClinicalWorks Submission
--- OUTSIDE RECORDS SUMMARY | 2018-01-12 09:04 | XMS REPORT ---
Author Author SCARLET ALVES Organization [facility] Address [address] [place] [address] Care Team Providers Care Aquatics Coordinator Name Role Phone SCARLET ALVES Unavailable PROBLEMS Type Condition ICD9-CM Code [id number] Code Onset Dates Condition Status SNOMED Code Problem Chronic migraine without aura with status migrainosus, not intractable G43.701 Active 168891549 Problem Essential hypertension I10 Active 99779581 Problem Hypokalemia E87.6 Active 31368883 Problem Abnormal glucose R73.09 Active 671944654 Problem Major depressive disorder, recurrent episode, moderate F33.1 Active 534147052 Problem Tremor, hereditary, 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 Active 718575390 Problem Irritable bowel K58.9 Active 89886201 Problem Moderate persistent asthma without complication J45.40 Active 946973032 Problem Primary insomnia F51.01 Active 0620657 Problem Other chronic pain G89.29 Active 13354121 Problem 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 Active 64311537 Problem Elevated lipids E78.5 Active 368285414627 Problem Seizure disorder G40.909 Active 245227972 ALLERGIES Substance Reaction Event Type Date Status Morphine Sulfate rebound headaches Drug Allergy October, Active Gabapentin coma Drug Allergy October, Active Amoxicillin itching Drug Allergy October, Active NSAIDS Hallucinations Non Drug Allergy October, Active SOCIAL HISTORY Never Assessed PLAN OF CARE Activity Details Future/Pending Procedure JOINT INJECTION-LARGE JOINT VITAL SIGNS Height 65 in 2016-10-23 Weight 176.5 lbs 2016-10-23 Temperature 98.3 degrees Fahrenheit 2016-10-23 Heart Rate 60 bpm 2016-10-23 Respiratory Rate 18 2016-10-23 BMI 29.37 kg/m2 2016-10-23 Blood pressure systolic 146 mmHg 2016-10-23 Blood pressure diastolic 84 mmHg 2016-10-23 MEDICATIONS Medication Instructions Dosage Frequency Start Date End Date Duration Status Potassium Chloride ER 10 MEQ Orally Twice a day 1 tablet 12h Active Albuterol Sulfate 90 mcg/actuation inhale 2 puffs by inhalation route every 4-6 hours as neededPRNcough or wheezing Nov, Active [place] 5-325 MG Orally every 6 hrs 1 tablet as needed 6h October, Active Amlodipine Besylate 5 mg Orally Once a day 1 tablet 24h Active Dicyclomine HCl 20 mg Orally Four times a day 1 tablet 6h Active Omeprazole 40 mg Orally Once a day 1 capsule 24h May, Active Celebrex 200 mg Orally Once a day 1 capsule with food 24h Aug, 30 day(s) Active Propranolol HCl 80 mg Orally Twice a day 1 tablet 12h Active RESULTS No Results PROCEDURES Procedure Date Ordered Result Body Site TORADOL (IM) 60 MG/2ML (UP TO 15 MG) October 23, 2016 THER/PROPH/DIAG INJ, SC/IM October 23, 2016 DRAIN/INJECT, JOINT/BURSA October 23, 2016 IMMUNIZATIONS Vaccine Route Administration Date Status TORADOL (IM) 60 MG/2ML (UP TO 15 MG) IM Intramuscular October 23, 2016 Administered MEDICAL (GENERAL) HISTORY Type Description Date Medical [...]
--- OUTSIDE RECORDS SUMMARY | 2018-01-12 09:04 | XMS REPORT ---
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 Active Assessment Chronic migraine without aura with status migrainosus, not intractable G43.701 Active Assessment Essential hypertension I10 Active Assessment Hypokalemia E87.6 Active Assessment Irritable bowel K58.9 Active Assessment Low back pain M54.5 Active Medications Medication Code System Code Instructions Start Date End Date Status Dosage Dicyclomine HCl [facility] [address]-45 20 MG Orally Four times a day 1 tablet Propranolol HCl [facility] [address]-28 80 MG Orally Twice a day 1 tablet Potassium Chloride ER [facility] [address]-70 10 MEQ Orally Twice a day 1 tablet Amlodipine Besylate [facility] [address]-30 5 MG Orally Once a day 1 tablet Topamax [facility] [address]-19 200 MG Orally Twice a day 1 tablet Gabapentin [facility] [address]-63 300 MG Orally 2 times a day prn 1 capsule Amitriptyline HCl [facility] [address]-42 25 MG Orally Once a day December 10, 2014 1 tablet at bedtime Albuterol Sulfate [facility] [address]-24 90 mcg/actuation November 06, 2011 inhale 2 puffs by inhalation route every 4-6 hours as neededPRNcough or wheezing Zoloft [facility] [address]-45 100 MG Orally Once a day 1.5 tablet Procedures Procedure Coding System Code Date Office Visit, Est Pt., Level 5 CPT-4 95068 Jun 15, 2015 VENIPUNCT, ROUTINE* CPT-4 29042 Jun 15, 2015 [facility] NOBLL Jun 15, 2015 Vital Signs Date/Time: Jun 15, 2015 Temperature 97.9 F Weight 173.0 lbs Height 65 in BMI 28.79 Index Blood Pressure Diastolic 100 mmHg Blood Pressure Systolic 152 mmHg Cardiac Monitoring Heart Rate 82 bpm Results Name Result Date Reference Range Unit Abnormality Flag ROUTINE VENIPUNCTURE Summary Purpose eClinicalWorks Submission
--- OUTSIDE RECORDS SUMMARY | 2018-01-12 09:04 | XMS REPORT ---
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 Active Medications Medication Code System Code Instructions Start Date End Date Status Dosage Amoxicillin [facility] [address]-93 500 MG Orally every 12 hrs May 16, 2015 May 26, 2015 2 tablet Propranolol HCl [facility] [address]-80 20 MG Orally Twice a day 1 tablet Potassium Chloride ER [facility] [address]-39 10 MEQ Orally every other day 1 tablet Amlodipine Besylate [facility] [address]-99 5 MG Orally Once a day 1 tablet Topamax [facility] [address]-31 200 MG Orally Twice a day 1 tablet Dicyclomine HCl [facility] [address]-27 20 MG Orally Four times a day 1 tablet Gabapentin [facility] [address]-87 100 MG Orally 2 times a day prn 1 capsule Procedures Procedure Coding System Code Date Office Visit, Est Pt., Level 3 CPT-4 42203 May 16, 2015 Vital Signs Date/Time: May 16, 2015 Temperature 97.3 F Weight 180.8 lbs Height 65 in BMI 30.08 Index Blood Pressure Diastolic 62 mmHg Blood Pressure Systolic 100 mmHg Cardiac Monitoring Heart Rate 80 bpm Results No Known Results Summary Purpose eClinicalWorks Submission
--- OUTSIDE RECORDS SUMMARY | 2018-01-12 09:04 | XMS REPORT ---
Author DIONY Zuluaga [facility] eClinicalWorks Address Unknown Phone Unavailable Care Team Providers Care Foxing Painter Name Role Phone DIONY XIONG Unavailable Allergies, Adverse Reactions, Alerts Substance Reaction Event Type N.K.D.A. 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 Active Problem Irritable bowel K58.9 Active Assessment Irritable bowel K58.9 Active Assessment Tremor, hereditary, 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 Active Assessment Chronic migraine without aura with status migrainosus, not intractable G43.701 Active Medications Medication Code System Code Instructions Start Date End Date Status Dosage Gabapentin [facility] [address]-42 100 MG Orally 2 times a day prn Apr 20, 2015 1 capsule Dicyclomine HCl [facility] [address]-42 20 MG Orally Four times a day Mar 24, 2015 1 tablet Propranolol HCl [facility] [address]-23 10 MG Orally Twice a day 1 tablet Topamax [facility] [address]-98 200 MG Orally Twice a day 1 tablet Potassium Chloride ER [facility] [address]-30 10 MEQ Orally every other day Apr 20, 2015 1 tablet Procedures Procedure Coding System Code Date VENIPUNCT, ROUTINE* CPT-4 78014 Apr 20, 2015 Office Visit, Est Pt., Level 5 CPT-4 72108 Apr 20, 2015 [facility] NOBLL Apr 20, 2015 Vital Signs Date/Time: Apr 20, 2015 Temperature 97.2 F Weight 178.7 lbs Height 65 in BMI 29.73 Index Blood Pressure Diastolic 82 mmHg Blood Pressure Systolic 122 mmHg Cardiac Monitoring Heart Rate 78 bpm Results Name Result Date Reference Range Unit Abnormality Flag ROUTINE VENIPUNCTURE MAGNESIUM, SERUM Summary Purpose eClinicalWorks Submission
--- OUTSIDE RECORDS SUMMARY | 2018-01-12 09:04 | XMS REPORT ---
Author DIONY Zuluaga Organization [employer] Address Unknown Phone Unavailable Care Team Providers Care Boiler Shop Supervisor Name Role Phone DIONY XIONG CP Unavailable [...] Problem Low back pain M54.5 Active Medications Medication Code System Code Instructions Start Date End Date Status Dosage Dicyclomine HCl [facility] [address]-05 20 mg Orally Four times a day 1 tablet Results No Known Results Summary Purpose eClinicalWorks Submission
[2018-01-12] MEDS ORDERED: KETOROLAC 30 MG/ML VIAL IVP STA (09:09)
[2018-01-12] MEDS ORDERED: NS IV 1000 ML 1,000 ML IV STA (09:09)
[2018-01-12] MEDS ORDERED: PROMETHAZINE INJ 25 MG/ML (PHENERGAN) AMP IVP STA (09:09)
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
[2018-01-12] MEDS ORDERED: diphenhydrAMINE 50 MG/ML INJ (BENADRYL) IV ONE (09:15)
--- NOTE | 2018-01-12 09:17 | ED Headache ---
General Chief Complaint: Head/Cervical Problems Stated Complaint: VOMITING/GAN Nursing Triage Note: ARRIVED VIA AMB TO ROOM 05. COMPLAINS OF MIGRAINE WITH VOMITING SINCE YESTERDAY. Nursing Sepsis Screen: No Definite Risk Source: patient Exam Limitations: no limitations (MARY SWARTZ STUDENT) History of Present Illness Date Seen by Provider: Jan 12, 2018 Time Seen by Provider: 08:55 Initial Comments Seen and evaluated. Patient with history of migraines presents with frontal headache and nausea/vomiting which began at approximately 1600 on 01/11/18. She says that the current pain location and nausea/vomiting are typical for her migraines but are more severe, which prompted her to present to the ED. She has photophobia, which is typical for her headaches. She recently broke two teeth, which she says may be contributing to her pain. She has attempted taking Tylenol , ibuprofen, and Excedrin to abort the headache, none of which has been able to significantly reduce the pain. She has not attempted anything to alleviate the nausea, eating or drinking makes the nausea worse. She denies changes in vision , loss of consciousness, and bowel and bladder changes. Timing/Duration: 24 hours Severity/Quality: moderate Location: frontal Prior Headaches/Recent Trauma: chronic headaches Modifying Factors: worse with exposure to light; improves with rest Associated Symptoms: No loss of consciousness; nausea/vomiting; No vision changes (MARY SWARTZ STUDENT) Associated Symptoms: No fever/chills, No nasal congestion, No nasal drainage ( JORGE LUIS DURAN MD) Allergies and Home Medications Allergies Coded Allergies: morphine (Verified Allergy, Unknown, CAUSES "REBOUND HEADACHES", 08/20/13) baclofen (Verified Adverse Reaction, Severe, 06/13/15) PATIENT UNAWARE OF REACTION BUT WAS HOSPITALIZED AFTER TAKING MEDICATION AND WAS TOLD IT WAS A REACTION DUE TO THE MEDICATION SHE TOOK. meloxicam (Verified Adverse Reaction, Severe, 06/13/15) PATIENT UNAWARE OF REACTION BUT WAS HOSPITALIZED AFTER TAKING MEDICATION AND WAS TOLD IT WAS A REACTION DUE TO THE MEDICATION SHE TOOK. NSAIDS (Non-Steroidal Anti-Inflamma (Verified Adverse Reaction, Mild, have IBS and avoid NSAIDS, 12/04/12) Home Medications Acetaminophen/Diphenhydramine 1 Each Tablet, 2 TAB PO HS PRN for PAIN, (Reported ) Amitriptyline HCl 25 Mg Tablet, 25 MG PO HS, (Reported) Amlodipine Besylate 5 Mg Tablet, 5 MG PO DAILY, (Reported) Dicyclomine Hcl 20 Mg Tablet, 20 MG PO QID, (Reported) Ondansetron 8 Mg Tab.rapdis, 8 MG PO Q6H PRN for NAUSEA/VOMITING Prescribed by: FAMILIA ELISE on 01/31/161910 Potassium Chloride 10 Meq Tab.er.prt, 10 MEQ PO BID, (Reported) LAST FILLED 05/01/15 #30 Promethazine HCl 25 Mg Tablet, 25 MG PO Q8H PRN for NAUSEA/VOMITING Prescribed by: JORGE LUIS DURAN on 11/27/15 2303 Propranolol Hcl 10 Mg Tablet, 40 MG PO DAILY, (Reported) Patient Home Medication List Home Medication List Reviewed: Yes (MARY SWARTZ) Home Medication List Reviewed: Yes (JORGE LUIS DURAN MD) Review of Systems Constitutional: see HPI, chills, malaise Eyes: See HPI, Photophobia Ears, Nose, Mouth, Throat: see HPI, mouth pain Respiratory: no symptoms reported Cardiovascular: no symptoms reported; No syncope Gastrointestinal: abdominal pain (mild diffuse pain); No constipation, No diarrhea; loss of appetite, nausea, vomiting Genitourinary: no symptoms reported Musculoskeletal: neck pain Skin: no symptoms reported Psychiatric/Neurological: No Symptoms Reported (MARY SWARTZ) All Other Systems Reviewed Negative Unless Noted: Yes (JORGE LUIS DURAN MD) Past Iaedndr-Vgfbxw-Vkugaw Hx Past Med/Social Hx: Reviewed Nursing Past Med/Soc Hx (JORGE LUIS DURAN MD) Patient Social History Alcohol Use: Denies Use Recreational Drug Use: No Smoking Status: Never a Smoker Recent Foreign Travel: No Contact w/Someone Who Travel: No Recent Infectious Disease Expo: No Recent Hopitalizations: No (MARY SWARTZ) Immunizations Up To Date Tetanus Booster (TDap): More than 5yrs PED Vaccines UTD: No Date of Pneumonia Vaccine: Mar 03, 2014 Date of Influenza Vaccine: Mar 03, 2015 (MARY SWARTZ) Seasonal Allergies Seasonal Allergies: No (MARY SWARTZ) Past Medical History Surgeries: Yes (COLONOSCOPY) 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 Respiratory: Yes Asthma Currently Using CPAP: No Currently Using BIPAP: No Cardiac: No Neurological: Yes ("SEIZURE WITH LOW BP" PER PT) Seizure Disorder 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 advised multiple abdominal surgeries, cancer cells) Irritable Bowel Musculoskeletal: No Endocrine: No HEENT: No Loss of Vision: Denies Cancer: Yes Cervical, Colon Psychosocial: Yes Anxiety, Depression Integumentary: No Blood Disorders: No Adverse Reaction/Blood Tranf: No (MARY SWARTZ STUDENT) Family Medical History Reviewed Nursing Family Hx (JORGE LUIS DURAN MD) Diabetes mellitus 19 FATHER FHx: brain tumor 19 MOTHER HPV infection G8 SISTER No Family History of: AIDS Abdominal aortic aneurysm [place]'s disease Alcoholism Alzheimer's disease Aphasia Arthritis Asthma Cancer of mouth Cardiovascular disease Cataracts Colon cancer Completed stroke Congenital disease Congenital heart disease Coronary thrombosis Cystic fibrosis Deafness or hearing loss Dementia Drug abuse Dysphasia Fibrocystic disease of breast Gastroenteritis Glaucoma Headache disorder Hypercholesterolemia Hypertension Infertility Kidney disease Myocardial infarction Neoplasm Not obtainable due to adoption Osteoporosis Parkinson's disease Prostate cancer Psychosocial problem Respiratory disorder Seizure disorder Severe allergy Thyroid disease Tuberculosis Visual disorder Heart Disease, Hypertension (MARY SWARTZ STUDENT) Physical Exam Vital Signs Vital Signs - First Documented 01/12/18 08:45 Temp 96.4 Pulse 96 Resp 16 B/P (MAP) 175/118 (137) Pulse Ox 96 O2 Delivery Room Air (JORGE LUIS DURAN MD) Vital Signs Capillary Refill : Less Than 3 Seconds (MARY SWARTZ STUDENT) Height, Weight, BMI Height: 5'3.00" Weight: 190lbs. 9.0oz. 86.730393gr; 27.60 BMI Method:Estimated General Appearance: WD/WN, mild distress, obese HEENT: PERRL/EOMI, normal ENT inspection, TMs normal, pharynx normal Neck: non-tender, full range of motion, supple, normal inspection Cardiovascular: normal peripheral pulses, regular rate, rhythm, no edema, no gallop, no JVD, no murmur Respiratory: chest non-tender, lungs clear, normal breath sounds, no respiratory distress, no accessory muscle use Gastrointestinal: normal bowel sounds, soft, no organomegaly, no pulsatile mass ; No guarding, No rebound; tenderness (mild diffuse tenderness); No mass Back: normal inspection, no CVA tenderness, no vertebral tenderness Extremities: normal range of motion, non-tender, normal inspection, no pedal edema, no calf tenderness, normal capillary refill, pelvis stable Psychiatric: alert, oriented x 3 Crainal Nerves: normal hearing, normal speech, PERRL Motor/Sensory: no motor deficit, no sensory deficit, negative Babinski's sign Skin: normal color, warm/dry Lymphatic: no adenopathy (MARY SWARTZ MED STUDENT) HEENT: other (multiple teeth that are decayed down to the gumline throughout the mouth. Very poor dentition overall.) Neck: full range of motion, supple Cardiovascular: regular rate, rhythm, no murmur Respiratory: lungs clear, normal breath sounds Skin: normal color, warm/dry (JROGE LUIS DURAN MD) Progress/Results/Core Measures Results/Orders Lab Results Laboratory Tests Test 01/12/18 09:20 Range/Units White Blood Count 6.9 4.3-11.0 10^3/uL Red Blood Count 5.12 4.35-5.85 10^6/uL Hemoglobin 14.6 11.5-16.0 G/DL Hematocrit 45 35-52 % Mean Corpuscular Volume 88 80-99 FL Mean Corpuscular Hemoglobin 29 25-34 PG Mean Corpuscular Hemoglobin Concent 32 32-36 G/DL Red Cell Distribution Width 15.7 H 10.0-14.5 % Platelet Count 368 130-400 10^3/uL Mean Platelet Volume 9.2 7.4-10.4 FL Neutrophils (%) (Auto) 61 42-75 % Lymphocytes (%) (Auto) 30 12-44 % Monocytes (%) (Auto) 8 0-12 % Eosinophils (%) (Auto) 1 0-10 % Basophils (%) (Auto) 0 0-10 % Neutrophils # (Auto) 4.2 1.8-7.8 X 10^3 Lymphocytes # (Auto) 2.1 1.0-4.0 X 10^3 Monocytes # (Auto) 0.5 0.0-1.0 X 10^3 Eosinophils # (Auto) 0.0 0.0-0.3 10^3/uL Basophils # (Auto) 0.0 0.0-0.1 10^3/uL Sodium Level 145 135-145 MMOL/L Potassium Level 3.6 3.6-5.0 MMOL/L Chloride Level 107 98-107 MMOL/L Carbon Dioxide Level 25 21-32 MMOL/L Anion Gap 13 5-14 MMOL/L Blood Urea Nitrogen 9 7-18 MG/DL Creatinine 0.86 0.60-1.30 MG/DL Estimat Glomerular Filtration Rate > 60 BUN/Creatinine Ratio 10 Glucose Level 111 H 70-105 MG/DL Calcium Level 10.8 H 8.5-10.1 MG/DL Corrected Calcium 8.5-10.1 MG/DL Total Bilirubin 0.4 0.1-1.0 MG/DL Aspartate Amino Transf (AST/SGOT) 42 H 5-34 U/L Alanine Aminotransferase (ALT/SGPT) 59 H 0-55 U/L Alkaline Phosphatase 104 40-136 U/L Total Protein 8.6 H 6.4-8.2 GM/DL Albumin 4.8 H 3.2-4.5 GM/DL (JORGE LUIS DURAN MD) My Orders Orders - JORGE LUIS DURAN MD Cbc With Automated Diff (01/12/18 09:09) Comprehensive Metabolic Panel (01/12/18 09:09) Promethazine Injection (Phenergan Injec (01/12/18 09:09) Ns Iv 1000 Ml (Sodium Chloride 0.9%) (01/12/18 09:09) Saline Lock/Iv-Start (01/12/18 09:09) Ketorolac Injection (Toradol Injection) (01/12/18 09:09) Diphenhydramine Injection (Benadryl Inje (01/12/18 09:15) Hydrocodone/Apap 7.5/325 Tab (Lortab 7. (01/12/18 10:27) (JORGE LUIS DURAN MD) Medications Given in ED Current Medications Medications Dose Ordered Sig/Judi Route Start Time Stop Time Status Last Admin Dose Admin Diphenhydramine HCl 25 mg ONCE ONCE IV 01/12/18 09:15 01/12/18 09:16 DC 01/12/18 09:21 25 MG (JORGE LUIS DURAN MD) Vital Signs/I&O 01/12/18 08:45 Temp 96.4 Pulse 96 Resp 16 B/P (MAP) 175/118 (137) Pulse Ox 96 O2 Delivery Room Air (JORGE LUIS DURAN MD) Blood Pressure Mean: 137 Progress Progress Note : Progress Note I have seen and evaluated the patient and agree with above except as indicated. I have directed the plan of care. Patient is here with headache since yesterday and nausea. She reports some vomiting. Has history of migraines and states this is fairly typical. Has concerns about hypokalemia due to vomiting as she sometimes gets this. Took her own medicines and that's not working. Does have teeth pain and has very poor dentition with multiple teeth that are at the gumline. She knows that she is to get those taken out. Evaluation as above. Plan is for IV fluid, Toradol 30 mg IV, Phenergan 25 mg IV and Benadryl 25 mg IV with 1 L of normal saline. Monitor patient. 1027: Still having some headache. This may be related to her teeth. We will give a hydrocodone here at 7.5 mg and then discharged home with return precautions. Discharged home with return precautions. Patient verbalize understanding instructions and agreement with plan. (JORGE LUIS DURAN MD) Departure Impression Primary Impression: Headache Qualified Codes: R51 - Headache Additional Impression: Dental caries Disposition: 01 HOME, SELF-CARE Condition: Stable Departure-Patient Inst. Referrals: [facility] [place] (PCP/Family) Primary Care Physician Patient Instructions: Dental Pain (DC), Migraine Headache (DC) Add. Discharge Instructions: All discharge instructions reviewed with patient and/or family. Voiced understanding. Continue home medications as previously prescribed. You may take Tylenol/ acetaminophen 1000 mg every 8 hours as needed pain. Follow-up with your doctor tomorrow for recheck and further evaluation. Return for worsening, fever, vomiting, weakness, breathing problems or other concerns as needed. Follow-up with a dentist [facility] ALBERTO. Scripts Amoxicillin (Amoxicillin) 500 Mg Capsule 500 MG PO TID, #30 CAP 0 Refills Prov: JORGE LUIS DURAN MD 01/12/18 MARY SWARTZ MED STUDENT Jan 12, 2018 09:17 JORGE LUIS DURAN MD Jan 12, 2018 10:16
[2018-01-12 09:38] LABS: BASOPHILS % (AUTO) 0 % (0-10); EOSINOPHILS % (AUTO) 1 % (0-10); HEMATOCRIT 45 % (35-52); HEMOGLOBIN 14.6 G/DL (11.5-16.0); LYMPHOCYTES # (AUTO) 2.1 X 10^3 (1.0-4.0); LYMPHOCYTES % (AUTO) 30 % (12-44); MEAN CORPUSCULAR HEMOGLOBIN 29 PG (25-34); MEAN CORPUSCULAR HGB CONC 32 G/DL (32-36); MEAN CORPUSCULAR VOLUME 88 FL (80-99); MEAN PLATELET VOLUME 9.2 FL (7.4-10.4); MONOCYTES # (AUTO) 0.5 X 10^3 (0.0-1.0); MONOCYTES % (AUTO) 8 % (0-12); NEUTROPHILS # (AUTO) 4.2 X 10^3 (1.8-7.8); NEUTROPHILS % (AUTO) 61 % (42-75); PLATELET COUNT 368 10^3/uL (130-400); RED BLOOD COUNT 5.12 10^6/uL (4.35-5.85); RED CELL DISTRIBUTION WIDTH 15.7 % (10.0-14.5); WHITE BLOOD COUNT 6.9 10^3/uL (4.3-11.0)
[2018-01-12 10:01] LABS: ALANINE AMINOTRANSFERASE 59 U/L (0-55); ALBUMIN 4.8 GM/DL (3.2-4.5); ALKALINE PHOSPHATASE 104 U/L (40-136); BILIRUBIN,TOTAL 0.4 MG/DL (0.1-1.0); BUN/CREATININE RATIO 10; CALCIUM 10.8 MG/DL (8.5-10.1); CARBON DIOXIDE 25 MMOL/L (21-32); CHLORIDE 107 MMOL/L (98-107); CREATININE SERUM 0.86 MG/DL (0.60-1.30); GFR ESTIMATED > 60; GLUCOSE 111 MG/DL (70-105); POTASSIUM 3.6 MMOL/L (3.6-5.0); SODIUM 145 MMOL/L (135-145); TOTAL PROTEIN 8.6 GM/DL (6.4-8.2)
[2018-01-12] MEDS ORDERED: HYDROcodone/APAP 7.5 MG/325 MG (LORTAB, LORCET PLUS) TABLET PO STA (10:27)
[2018-01-12] MEDS ORDERED: AMOX500C2 PO ×2 (10:33→10:38)
[2018-01-12 10:51] VITALS: BP 164/112
== END 2018-01-12 10:51 | disposition home or self-care (01) ==
LOC: EDUNIT# 08:44 → ER 08:46
DX: R51 Headache (principal); K02.9 Dental caries, unspecified; J45.909 Unspecified asthma, uncomplicated; G40.909 Epilepsy, unspecified, not intractable, without status epilepticus; F41.9 Anxiety disorder, unspecified; F32.9 Major depressive disorder, single episode, unspecified; Z80.8 Family history of malignant neoplasm of other organs or systems; Z87.19 Personal history of other diseases of the digestive system; Z86.19 Personal history of other infectious and parasitic diseases; Z88.5 Allergy status to narcotic agent; Z98.51 Tubal ligation status; Z88.8 Allergy status to other drugs, medicaments and biological substances; Z88.6 Allergy status to analgesic agent; Z90.710 Acquired absence of both cervix and uterus; Z87.440 Personal history of urinary (tract) infections; Z85.038 Personal history of other malignant neoplasm of large intestine; Z85.41 Personal history of malignant neoplasm of cervix uteri
CPT/HCPCS: 36415; 80053; 85025

== ENCOUNTER 2018-08-11 08:10 | Emergency (ER) | payer SELFPAY ==
[~2018-08-11] VITALS: Ht 167.6 cm; Wt 93.4 kg
[~2018-08-11 08:10] MED LIST changes: -AMLO5TAB2 PO; +AMLO5TAB9 PO; +AMOX500C2 PO
[2018-08-11] MEDS ORDERED: LACTATED RINGERS 1,000 ML IV ONE ×2 (08:24)
[2018-08-11] MEDS ORDERED: metroNIDAZOLE 500MG/100ML IVPB 100 ML IV ONE (08:30)
[2018-08-11] MEDS ORDERED: ONDANSETRON 4 MG/2 ML (SDV) Z0FRAN IV PRN (08:30)
[2018-08-11] MEDS ORDERED: cefTRIAXone FOR IV USE 1,000 MG in WATER (STERILE) FOR INJECTION 10 ML IV ONE (08:30)
[2018-08-11 08:37] LABS: BASOPHILS % (AUTO) 0 % (0-10); EOSINOPHILS % (AUTO) 0 % (0-10); HEMATOCRIT 43 % (35-52); HEMOGLOBIN 13.5 G/DL (11.5-16.0); LYMPHOCYTES # (AUTO) 2.2 X 10^3 (1.0-4.0); LYMPHOCYTES % (AUTO) 23 % (12-44); MEAN CORPUSCULAR HEMOGLOBIN 28 PG (25-34); MEAN CORPUSCULAR HGB CONC 32 G/DL (32-36); MEAN CORPUSCULAR VOLUME 88 FL (80-99); MEAN PLATELET VOLUME 9.3 FL (7.4-10.4); MONOCYTES # (AUTO) 0.7 X 10^3 (0.0-1.0); MONOCYTES % (AUTO) 7 % (0-12); NEUTROPHILS # (AUTO) 6.6 X 10^3 (1.8-7.8); NEUTROPHILS % (AUTO) 69 % (42-75); PLATELET COUNT 384 10^3/uL (130-400); RED CELL DISTRIBUTION WIDTH 14.5 % (10.0-14.5); WHITE BLOOD COUNT 9.5 10^3/uL (4.3-11.0)
[2018-08-11] MEDS ORDERED: PROMETHAZINE INJ 25 MG/ML (PHENERGAN) AMP ONE (08:45)
[2018-08-11 08:54] LABS: ALANINE AMINOTRANSFERASE 36 U/L (0-55); ALBUMIN 4.9 GM/DL (3.2-4.5); ALKALINE PHOSPHATASE 91 U/L (40-136); BILIRUBIN,TOTAL 0.5 MG/DL (0.1-1.0); BUN/CREATININE RATIO 9; CALCIUM 10.5 MG/DL (8.5-10.1); CARBON DIOXIDE 26 MMOL/L (21-32); CHLORIDE 103 MMOL/L (98-107); CREATININE SERUM 1.18 MG/DL (0.60-1.30); GFR ESTIMATED 51; GLUCOSE 126 MG/DL (70-105); POTASSIUM 3.6 MMOL/L (3.6-5.0); SODIUM 145 MMOL/L (135-145); TOTAL PROTEIN 8.2 GM/DL (6.4-8.2)
[2018-08-11] MEDS ORDERED: fentaNYL INJECTION 100 MCG/2 ML AMP IVP ONE ×2 (09:00→11:00)
[2018-08-11] MEDS ORDERED: PROMETHAZINE INJ 25 MG/ML (PHENERGAN) AMP IVP ONE (09:00)
[2018-08-11 09:15] LABS: PROTHROMBIN TIME PATIENT 12.9 SEC (12.2-14.7)
--- NOTE | 2018-08-11 09:30 | Diagnostic Imaging Report ---
INDICATION: Cough COMPARISON: 03/25/2013 FINDINGS: Single view of the chest demonstrates clear lungs bilaterally. The heart size is normal. There is no pneumothorax. Osseous structures are normal. IMPRESSION: No acute findings. Normal chest. Dictated by: Dictated on workstation # [id number]
[2018-08-11 09:53] LABS: BILIRUBIN,URINE NEGATIVE (NEGATIVE); CLARITY,URINE SLIGHTLY CLOUDY; COLOR,URINE YELLOW; GLUCOSE, URINE (UA) NEGATIVE (NEGATIVE); KETONES,URINE 3+ (NEGATIVE); LEUKOCYTE ESTERASE ,URINE 1+ (NEGATIVE); NITRITE,URINE NEGATIVE (NEGATIVE); PH,URINE 9 (5-9); PROTEIN,URINE 2+ (NEGATIVE); UROBILINOGEN,URINE 1 MG/DL (NORMAL)
[2018-08-11 10:01] LABS: BACTERIA,URINE FEW /HPF
[2018-08-11 10:02] LABS: AMORPHOUS SEDIMENT,UR FEW AMOR PHOSPHATE /LPF
--- NOTE | 2018-08-11 10:48 | ED Respiratory ---
General Chief Complaint: Cough/Cold/Flu Symptoms Stated Complaint: VOMITING;ABD PAIN;HEAD PAIN Nursing Triage Note: PT STATES HAS COLD COUGH, NAUSEA VOMITING, DENIES DIARRHEA, HAD FEVER LAST PM. STATES WAS SEEN IN [facility] LAST SATURDAY AND HAS BEEN TAKING ZOFRAN FOR NAUSEA Source: patient, family Exam Limitations: no limitations History of Present Illness Date Seen by Provider: Aug 11, 2018 Time Seen by Provider: 08:22 Initial Comments Patient presents to ER by private conveyance with chief complaint of cough, nausea vomiting fever no diarrhea. She says is been going on for 5 days. She was seen at urgent care of last week and had a flu swab was negative. Says she has a sore throat so I swabbed her throat for strep and it was negative she thinks her throat is sore because of the vomiting. Lots of sick contacts. She also has a history of migraine headaches which are worse with her illness. No dysuria. She has a hysterectomy. No discharge or diarrhea or constipation. Allergies and Home Medications Allergies Coded Allergies: morphine (Verified Allergy, Unknown, CAUSES "REBOUND HEADACHES", 08/20/13) baclofen (Verified Adverse Reaction, Severe, 06/13/15) PATIENT UNAWARE OF REACTION BUT WAS HOSPITALIZED AFTER TAKING MEDICATION AND WAS TOLD IT WAS A REACTION DUE TO THE MEDICATION SHE TOOK. meloxicam (Verified Adverse Reaction, Severe, 06/13/15) PATIENT UNAWARE OF REACTION BUT WAS HOSPITALIZED AFTER TAKING MEDICATION AND WAS TOLD IT WAS A REACTION DUE TO THE MEDICATION SHE TOOK. NSAIDS (Non-Steroidal Anti-Inflamma (Verified Adverse Reaction, Mild, have IBS and avoid NSAIDS, 12/04/12) Home Medications Dicyclomine Hcl 20 Mg Tablet, 20 MG PO QID, (Reported) Ondansetron 8 Mg Tab.rapdis, 8 MG PO Q6H PRN for NAUSEA/VOMITING Prescribed by: FAMILIA ELISE on 01/31/161910 Propranolol Hcl 10 Mg Tablet, 40 MG PO DAILY, (Reported) Patient Home Medication List Home Medication List Reviewed: Yes Review of Systems Review of Systems Constitutional: chills, fever, malaise EENTM: No ear discharge, No ear pain Respiratory: cough; No phlegm, No short of breath, No wheezing Cardiovascular: No chest pain, No palpitations Gastrointestinal: No abdominal pain, No constipation, No diarrhea, No nausea Genitourinary: No discharge, No dysuria : No Musculoskeletal: No back pain, No joint pain Past Cydguoz-Ihykpk-Uenucp Hx Patient Social History Alcohol Use: Denies Use Recreational Drug Use: No Smoking Status: Never a Smoker 2nd Hand Smoke Exposure: No Recent Foreign Travel: No Contact w/Someone Who Travel: No Recent Infectious Disease Expo: No Recent Hopitalizations: No Physical Abuse: No Sexual Abuse: No Immunizations Up To Date Tetanus Booster (TDap): More than 5yrs PED Vaccines UTD: No Date of Pneumonia Vaccine: Mar 03, 2014 Date of Influenza Vaccine: Mar 03, 2015 Seasonal Allergies Seasonal Allergies: No Past Medical History Surgeries: Yes (COLONOSCOPY) Gallbladder, 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, Tubal Ligation Respiratory: Yes Asthma Currently Using CPAP: No Currently Using BIPAP: No Cardiac: No Neurological: Yes ("SEIZURE WITH LOW BP" PER PT) Seizure Disorder 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 advised multiple abdominal surgeries, cancer cells) Irritable Bowel Musculoskeletal: No Endocrine: No HEENT: No Loss of Vision: Denies Cancer: Yes Cervical, Colon Psychosocial: Yes Anxiety, Depression Integumentary: No Blood Disorders: No Adverse Reaction/Blood Tranf: No Family Medical History Diabetes mellitus 19 FATHER FHx: brain tumor 19 MOTHER HPV infection G8 SISTER No Family History of: AIDS Abdominal aortic aneurysm [place]'s disease Alcoholism Alzheimer's disease Aphasia Arthritis Asthma Cancer of mouth Cardiovascular disease Cataracts Colon cancer Completed stroke Congenital disease Congenital heart disease Coronary thrombosis Cystic fibrosis Deafness or hearing loss Dementia Drug abuse Dysphasia Fibrocystic disease of breast Gastroenteritis Glaucoma Headache disorder Hypercholesterolemia Hypertension Infertility Kidney disease Myocardial infarction Neoplasm Not obtainable due to adoption Osteoporosis Parkinson's disease Prostate cancer Psychosocial problem Respiratory disorder Seizure disorder Severe allergy Thyroid disease Tuberculosis Visual disorder Heart Disease, Hypertension Physical Exam Vital Signs - First Documented 08/11/18 08:15 Temp 98.9 Pulse 116 Resp 18 B/P (MAP) 139/97 (111) Pulse Ox 98 Capillary Refill : Less Than 3 Seconds Height: 5'6.00" Weight: 206lbs. 9.0oz. [id number]; 27.60 BMI Method:Stated General Appearance: mild distress, obese Eyes: Bilateral Eye Normal Inspection, Bilateral Eye PERRL, Bilateral Eye EOMI HEENT: PERRL/EOMI, normal ENT inspection, pharynx normal Neck: non-tender, full range of motion, supple, normal inspection Respiratory: chest non-tender, lungs clear, normal breath sounds, no respiratory distress, no accessory muscle use Cardiovascular: normal peripheral pulses, regular rate, rhythm, no edema Gastrointestinal: normal bowel sounds, soft, tenderness (mild diffuse) Neurologic/Psychiatric: alert, oriented x 3 Skin: normal color, warm/dry Focused Exam Lactate Level 08/11/18 08:20: Lactic Acid Level 1.40 Lactic Acid Level Laboratory Tests Test 08/11/18 08:20 Lactic Acid Level 1.40 MMOL/L (0.50-2.00) Progress/Results/Core Measures Suspected Sepsis Recent Fever Within 48 Hours: No Infection Criteria Present: None New/Unexplained Altered Menta: No Sepsis Screen: No Definite Risk SIRS Temperature:98.9 Pulse: 116 Respiratory Rate: 18 Laboratory Tests 08/11/18 08:20: White Blood Count 9.5 Blood Pressure 139 /97 Mean: 111 08/11/18 08:20: Lactic Acid Level 1.40 Laboratory Tests 08/11/18 08:20: Creatinine 1.18, INR Comment 1.0, Platelet Count 384, Total Bilirubin 0.5 Results/Orders Lab Results Laboratory Tests Test 08/11/18 08:20 08/11/18 09:40 Range/Units White Blood Count 9.5 4.3-11.0 10^3/uL Red Blood Count 4.86 4.35-5.85 10^6/uL Hemoglobin 13.5 11.5-16.0 G/DL Hematocrit 43 35-52 % Mean Corpuscular Volume 88 80-99 FL Mean Corpuscular Hemoglobin 28 25-34 PG Mean Corpuscular Hemoglobin Concent 32 32-36 G/DL Red Cell Distribution Width 14.5 10.0-14.5 % Platelet Count 384 130-400 10^3/uL Mean Platelet Volume 9.3 7.4-10.4 FL Neutrophils (%) (Auto) 69 42-75 % Lymphocytes (%) (Auto) 23 12-44 % Monocytes (%) (Auto) 7 0-12 % Eosinophils (%) (Auto) 0 0-10 % Basophils (%) (Auto) 0 0-10 % Neutrophils # (Auto) 6.6 1.8-7.8 X 10^3 Lymphocytes # (Auto) 2.2 1.0-4.0 X 10^3 Monocytes # (Auto) 0.7 0.0-1.0 X 10^3 Eosinophils # (Auto) 0.0 0.0-0.3 10^3/uL Basophils # (Auto) 0.0 0.0-0.1 10^3/uL Prothrombin Time 12.9 12.2-14.7 SEC INR Comment 1.0 0.8-1.4 Activated Partial Thromboplast Time 27 24-35 SEC Sodium Level 145 135-145 MMOL/L Potassium Level 3.6 3.6-5.0 MMOL/L Chloride Level 103 98-107 MMOL/L Carbon Dioxide Level 26 21-32 MMOL/L Anion Gap 16 H 5-14 MMOL/L Blood Urea Nitrogen 11 7-18 MG/DL Creatinine 1.18 0.60-1.30 MG/DL Estimat Glomerular Filtration Rate 51 BUN/Creatinine Ratio 9 Glucose Level 126 H 70-105 MG/DL Lactic Acid Level 1.40 0.50-2.00 MMOL/L Calcium Level 10.5 H 8.5-10.1 MG/DL Corrected Calcium 8.5-10.1 MG/DL Total Bilirubin 0.5 0.1-1.0 MG/DL Aspartate Amino Transf (AST/SGOT) 38 H 5-34 U/L Alanine Aminotransferase (ALT/SGPT) 36 0-55 U/L Alkaline Phosphatase 91 40-136 U/L Total Protein 8.2 6.4-8.2 GM/DL Albumin 4.9 H 3.2-4.5 GM/DL Urine Color YELLOW Urine Clarity SLIGHTLY CLOUDY Urine pH 9 5-9 Urine Specific [place] 1.015 L 1.016-1.022 Urine Protein 2+ H NEGATIVE Urine Glucose (UA) NEGATIVE NEGATIVE Urine Ketones 3+ H NEGATIVE Urine Nitrite NEGATIVE NEGATIVE Urine Bilirubin NEGATIVE NEGATIVE Urine Urobilinogen 1 NORMAL MG/DL Urine Leukocyte Esterase 1+ H NEGATIVE Urine RBC (Auto) NEGATIVE NEGATIVE Urine RBC NONE /HPF Urine WBC 2-5 /HPF Urine Squamous Epithelial Cells 10-25 H /HPF Urine Crystals PRESENT H /LPF Urine Amorphous Sediment FEW TETE PHOSPHATE H /LPF Urine Bacteria FEW H /HPF Urine Casts NONE /LPF Urine Mucus NEGATIVE /LPF Urine Culture Indicated CULTURE PENDING Micro Results Microbiology 08/11/18 Influenza Types A,B Antigen (RADHA) - Final, Complete My Orders Orders - PAULA COLINDRES Cbc With Automated Diff (08/11/18 08:24) Comprehensive Metabolic Panel (08/11/18 08:24) Blood Culture (08/11/18 08:24) Sputum Culture (08/11/18 08:24) Urinalysis (08/11/18 08:24) Urine Culture (08/11/18 08:24) Protime With Inr (08/11/18 08:24) Partial Thromboplastin Time (08/11/18 08:24) Chest 1 View, Ap/Pa Only (08/11/18 08:24) Saline Lock/Iv-Start (08/11/18 08:24) Saline Lock/Iv-Start (08/11/18 08:24) Vital Signs Adult Sepsis Patie Q15M (08/11/18 08:24) Ondansetron Injection (Zofran Injectio (08/11/18 08:30) O2 (08/11/18 08:24) Remove Rings In Anticipation O (08/11/18 08:24) Lactic Acid Analyzer (08/11/18 08:24) Influenza A And B Antigens (08/11/18 08:24) Lactated Ringers (Lr 1000 Ml Iv Solution (08/11/18 08:24) Ceftriaxone For Iv Use (Rocephin For I (08/11/18 08:30) Metronidazole 500mg/100ml Ivpb (Flagyl 5 (08/11/18 08:30) Saline Lock/Iv-Start (08/11/18 08:24) Lactated Ringers (Lr 1000 Ml Iv Solution (08/11/18 08:24) Promethazine Injection (Phenergan Injec (08/11/18 09:00) Promethazine Injection (Phenergan Injec (08/11/18 08:45) Fentanyl Injection (Sublimaze Injection (08/11/18 09:00) Ondansetron Injection (Zofran Injectio (08/11/18 11:00) Fentanyl Injection (Sublimaze Injection (08/11/18 11:00) Ct Abdomen/Pelvis W (08/11/18 10:53) Medications Given in ED Current Medications Medications Dose Ordered Sig/Judi Route Start Time Stop Time Status Last Admin Dose Admin Ceftriaxone Sodium 1000 mg/ Sterile Water 10 ml @ 200 mls/hr ONCE ONCE IV 08/11/18 08:30 08/11/18 08:32 DC 08/11/18 09:41 200 MLS/HR Fentanyl Citrate 50 mcg ONCE ONCE IVP 08/11/18 09:00 08/11/18 09:01 DC 08/11/18 09:03 50 MCG Fentanyl Citrate 50 mcg ONCE ONCE IVP 08/11/18 11:00 08/11/18 11:01 DC 08/11/18 11:37 50 MCG Lactated Ringer's 1,000 ml @ 0 mls/hr Q0M ONCE IV 08/11/18 08:24 08/11/18 08:27 DC 08/11/18 08:34 1,000 MLS/HR Lactated Ringer's 1,000 ml @ 0 mls/hr Q0M ONCE IV 08/11/18 08:24 08/11/18 08:27 DC 08/11/18 09:41 1,000 MLS/HR Metronidazole 100 ml @ 100 mls/hr ONCE ONCE IV 08/11/18 08:30 08/11/18 09:29 DC 08/11/18 09:41 100 MLS/HR Ondansetron HCl 4 mg ONCE ONCE IVP 08/11/18 11:00 08/11/18 11:01 DC 08/11/18 11:10 4 MG Ondansetron HCl 4 mg PRN PRN IV 08/11/18 08:30 08/11/18 08:35 DC 08/11/18 08:34 4 MG Promethazine HCl 25 mg ONCE ONCE IVP 08/11/18 09:00 08/11/18 09:01 DC 08/11/18 08:49 25 MG Vital Signs/I&O 08/11/18 08:15 Temp 98.9 Pulse 116 Resp 18 B/P (MAP) 139/97 (111) Pulse Ox 98 Capillary Refill : Less Than 3 Seconds Blood Pressure Mean: 111 Progress Note #1: Time: 10:48 Progress Note We have given the patient signal, Phenergan and Zofran and her symptoms were much better. Her labs are okay we were waiting on her to provide a urine specimen. She received her fluid bolus. She then says her pain came back and her nausea came back although not as bad as before. She seems to have a viral syndrome like gastroenteritis. She has a history of IBS and refuses NSAIDs. She says her liver is bad so she is not allowed to take Tylenol. We are going to try some more Zofran and fentanyl and get a CT of her abdomen pelvis. If we cannot find a bacterial source of her symptoms but we can also not control her nausea vomiting then we will recommend her for an observation stay for intractable nausea vomiting of what is likely a viral gastroenteritis. Progress Note #2: Time: 12:25 Progress Note Patient has not had any more vomiting since receiving her initial doses of nausea medicine. She still says she feels poorly but she's received 2 L of fluid we'll send her home with some Phenergan and Zofran and follow up outpatient with primary care if necessary. Diagnostic Imaging Diagonstic Imaging: CT (with contrast) Plain Films/CT/US/NM/MRI: abdomen, pelvis Comments [facility], [place] NAME: D[facility] REC#: [id number] PT STATUS: REG ER : 1975 PHYSICIAN: PAULA COLINDRES MD ADMIT DATE: 08/11/18/ER Draft Date of Exam:08/11/18 CT ABDOMEN/PELVIS W PROCEDURE: CT abdomen and pelvis with contrast. TECHNIQUE: Multiple contiguous axial images were obtained through the abdomen and pelvis after administration of intravenous contrast. INDICATION: Abdominal pain for three days with nausea, vomiting, and fever. COMPARISON: Comparison is made with prior exam from 02/19/2014. FINDINGS: Lung bases are clear. No discrete liver mass is identified. The gallbladder is surgically absent. No biliary ductal dilatation is seen. The pancreas and spleen are unremarkable. No adrenal mass is identified. The kidneys are unremarkable. The aorta is nonaneurysmal. Visualized bowel loops appear to be normal in caliber. No obstruction is seen. There is no ascites. No definite abdominal or pelvic lymphadenopathy is seen. The bladder is unremarkable. The uterus appears to be surgically absent. Bony structures are nonacute. IMPRESSION: Unremarkable CT of the abdomen and pelvis. No acute abnormality is detected. Dictated on workstation # [id number] Dict: 08/11/18 1146 Trans: 08/11/18 1152 [id number] Interpreted by: BHAVYA RANDALL MD Electronically signed by: Reviewed: Reviewed by Me Departure Impression Primary Impression: Viral gastroenteritis Additional Impression: Dehydration, mild Disposition: 01 HOME, SELF-CARE Condition: Stable Departure-Patient Inst. Decision time for Depature: 12:29 Referrals: [facility] (PCP/Family) Primary Care Physician Patient Instructions: Viral Gastroenteritis, Adult (DC) Add. Discharge Instructions: Stick to a bland diet. Clear liquids. Advance as soon as you can tolerate other foods. Use the Zofran 1 tablet on the tongue every 6 hours as needed for nausea. Use the Phenergan 1 tablet every 6 hours as needed for nausea vomiting that is not treated by the Zofran. Drink plenty of fluids especially sports drinks mixed [id number] with water. If he started to develop diarrhea just give it 24 hours before using Imodium 2 tablets followed by one tablet every 4 hours as needed for watery stools. Make an appointment with primary care for later in the week or early next week. Cancel the appointment if you do not feel that you need it at that time. All discharge instructions reviewed with patient and/or family. Voiced understanding. Scripts Promethazine HCl (Promethazine Tablet) 25 Mg Tablet 25 MG PO Q6H PRN for NAUSEA/VOMITING, #20 TAB 0 Refills Prov: PAULA COLINDRES 08/11/18 Ondansetron (Ondansetron Odt) 4 Mg Tab.rapdis 4 MG PO Q6H PRN for NAUSEA/VOMITING-1ST LINE, #14 TAB 0 Refills Prov: PAULA COLINDRES 08/11/18 Work/School Note: Work Release Form Date Seen in the Emergency Department: Aug 11, 2018 Return to Work: Aug 14, 2018 Restrictions: No Restrictions PAULA COLINDRES Aug 11, 2018 10:47
[2018-08-11] MEDS ORDERED: ONDANSETRON 4 MG/2 ML (SDV) Z0FRAN IVP ONE (11:00)
--- NOTE | 2018-08-11 11:53 | Diagnostic Imaging Report ---
PROCEDURE: CT abdomen and pelvis with contrast. TECHNIQUE: Multiple contiguous axial images were obtained through the abdomen and pelvis after administration of intravenous contrast. INDICATION: Abdominal pain for three days with nausea, vomiting, and fever. COMPARISON: Comparison is made with prior exam from 02/19/2014. FINDINGS: Lung bases are clear. No discrete liver mass is identified. The gallbladder is surgically absent. No biliary ductal dilatation is seen. The pancreas and spleen are unremarkable. No adrenal mass is identified. The kidneys are unremarkable. The aorta is nonaneurysmal. Visualized bowel loops appear to be normal in caliber. No obstruction is seen. There is no ascites. No definite abdominal or pelvic lymphadenopathy is seen. The bladder is unremarkable. The uterus appears to be surgically absent. Bony structures are nonacute. IMPRESSION: Unremarkable CT of the abdomen and pelvis. No acute abnormality is detected. Dictated by: Dictated on workstation # [id number]
[2018-08-11] MEDS ORDERED: PROM25TA14 PO (12:32)
[2018-08-11] MEDS ORDERED: ONDA4TAB11 PO (12:32)
[2018-08-11 12:44] VITALS: BP 139/97
[2018-08-12] MEDS ORDERED: HYOS0.1283 SL (18:44)
== END 2018-08-11 12:44 | disposition home or self-care (01) ==
LOC: EDUNIT# 08:10 → ER 08:11
DX: A08.4 Viral intestinal infection, unspecified (principal); E86.0 Dehydration; J45.909 Unspecified asthma, uncomplicated; G40.909 Epilepsy, unspecified, not intractable, without status epilepticus; K58.9 Irritable bowel syndrome, unspecified; F41.9 Anxiety disorder, unspecified; F32.9 Major depressive disorder, single episode, unspecified; Z85.41 Personal history of malignant neoplasm of cervix uteri; Z85.038 Personal history of other malignant neoplasm of large intestine; Z86.19 Personal history of other infectious and parasitic diseases; Z87.448 Personal history of other diseases of urinary system; Z87.440 Personal history of urinary (tract) infections; Z88.5 Allergy status to narcotic agent; Z88.8 Allergy status to other drugs, medicaments and biological substances; Z88.6 Allergy status to analgesic agent; Z90.710 Acquired absence of both cervix and uterus; Z98.51 Tubal ligation status
CPT/HCPCS: 36415; 71045; 74177; 80053; 81000; 83605; 85025; 85610; 85730; 87040; 87088; 87804

== ENCOUNTER 2018-08-12 14:59 | Emergency (ER) | payer SELFPAY ==
[~2018-08-12] VITALS: Ht 167.6 cm; Wt 93.0 kg
[~2018-08-12 14:59] MED LIST changes: +ONDA4TAB11 PO
--- OUTSIDE RECORDS SUMMARY | 2018-08-12 15:05 | XMS REPORT ---
Author Author SCARLET ALVES Organization [facility] Address [address] [place] [address] Care Team Providers Care Electronics Warfare Technician Name Role Phone SCARLET ALVES Unavailable PROBLEMS Type Condition ICD9-CM Code UPK79-JA Code Onset Dates Condition Status SNOMED Code Problem Essential hypertension I10 Active 27840946 Problem Other chronic pain G89.29 Active 33322355 Problem 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 Active 83913766 Problem Other chronic pain G89.29 Active 02750971 Problem Intractable chronic migraine without aura and with status migrainosus G43.711 Active 483631529 Problem Primary insomnia F51.01 Active 2853009 Problem Seizure disorder G40.909 Active 366828948 Problem Moderate persistent asthma with exacerbation J45.41 Active 057809627 Problem Moderate persistent asthma without complication J45.40 Active 696646291 Problem Elevated liver enzymes R74.8 Active 873791423 Problem Hyperlipidemia LDL goal <100 E78.5 Active 25284976 Problem Hypokalemia E87.6 Active 99600600 Problem Tremor, hereditary, 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 Active 242050390 Problem Abnormal glucose R73.09 Active 700066803 Problem Irritable bowel K58.9 Active 62831503 Problem Major depressive disorder, recurrent episode, moderate F33.1 Active 577992545 Problem Chronic migraine without aura with status migrainosus, not intractable G43.701 Active 836940633 ALLERGIES No Information ENCOUNTERS Encounter Location Date Diagnosis [facility] [id number] [address] May, [facility] [id number] [place] [address] 87224- 8299 30 Apr, 2018 Bowel habit changes R19.4 and Acute cystitis without hematuria N30.00 [facility] [id number], [place] [address] Apr, Pain in right shoulder M25.511 [facility] [address] [facility] [id number] [address] Apr, [facility] [address] [facility] [id number] [address] Mar, [facility] [id number] [address] Mar, [facility] [address] [facility] [id number] [place] [address] 94670- 5098 Mar, [facility] [address] [facility] [id number] [address] 3[address] Mar, [facility] [id number] [place] [address] 59875- 0003 Feb, [facility] [id number] [place] [address] 23830- 1712 Feb, [facility] [address] [id number] [address] 9626 Feb, [facility] [id number] [address] Jan, [facility] [address] [address] 39[address] Dec, [facility] [id number], [place] [address] 1143 Dec, Other chronic pain G89.29 ; Pain in right shoulder M25.511 and Liver enzyme elevation R74.8 [facility] [address] [address] 9[address] Nov, Other chronic pain G89.29 and Pain in right shoulder M25.511 [facility] [id number], [place] [address] 295[address] October, [facility] [id number], [place] [address] October, Right shoulder pain, unspecified chronicity M25.511 [facility] [id number] [place] [address] 05749- 2035 Aug, Elevated liver enzymes R74.8 and Hyperlipidemia LDL goal < 100 E78.5 [facility] [id number] [place] [address] 38844- 8214 Aug, [facility] [address] 99686- 9658 Jul, [facility] [id number] [place] [address] 76968- 5715 Jul, Intractable chronic migraine without aura and with status migrainosus G43.711 ; Fever, unspecified fever cause R50.9 and Elevated liver enzymes R74.8 [facility] [id number] [place] [address] 89278- 7326 Jun, Difficulty urinating R39.198 and Moderate persistent asthma with exacerbation J45.41 [facility] [id number] [place] [address] 19311- 6819 Jun, [facility] [id number] [place] [address] 88979- 8259 Jun, Moderate persistent asthma with exacerbation J45.41 [facility] [id number] [place] [address] 69964- 2150 May, Elevated liver enzymes R74.8 and Hyperlipidemia LDL goal < 100 E78.5 [facility] [id number] [place] [address] 12714- 8485 May, Elevated lipids E78.5 [facility] [id number] [place] [address] 24090- 0436 Apr, Elevated liver enzymes R74.8 [facility] [id number] [place] [address] 35581- 4726 Apr, Elevated liver enzymes R74.8 [facility] [address] [place] [address] 61631- 5569 Apr, Superior glenoid labrum lesion of right shoulder, subsequent encounter S43.431D [facility] [address] 04473- 2206 Apr, Hypokalemia E87.6 ; Major depressive disorder, recurrent episode, moderate F33.1 ; Other abnormalities of breathing R06.89 and Dyspnea, unspecified R06.00 [facility] [address] [address]40 Mar, Moderate persistent asthma without complication J45.40 [place] [address] 24433- 5933 Mar, Impingement syndrome of right shoulder M75.41 [facility] [facility] [address] 17060- 3061 Jan, [facility] [facility] [address] 32346- 2043 Jan, Chronic migraine without aura with status migrainosus, not intractable G43.701 ; Essential hypertension I10 ; Irritable bowel K58.9 ; Primary insomnia F51.01 and Hypokalemia E87.6 [facility] [id number] [place] [address] 14024- 2974 Dec, [facility] [facility] [address] 43283- 8148 Dec, Pain in right shoulder M25.511 [facility] [address] 34622- 7937 Dec, Essential hypertension I10 [facility] [facility] [address] 80115- 4606 Dec, [facility] [facility] [address] 21892- 0806 Nov, Essential hypertension I10 [facility] [facility] [address] 14335- 7508 Nov, Pain in right shoulder M25.511 [facility] [id number] [place] [address] 64758- 4534 Nov, Pain in right shoulder M25.511 [facility] [id number] [place] [address] 70864- 6646 October, [facility] [id number] [place] [address] 18133- 2420 October, Pain in right shoulder M25.511 [facility] [id number] [place] [address] 38887- 4724 Sep, Arm pain, right M79.601 [facility] [id number] [place] [address] 38931- 6413 Sep, [facility] [id number] [place] [address] 48197- 8852 Sep, Abnormal glucose R73.09 and Elevated lipids E78.5 [facility] [id number] [place] [address] 66906- 8072 Sep, Abnormal glucose R73.09 and Elevated lipids E78.5 [facility] [id number] [place] [address] 33205- 1715 Aug, [facility] [id number] [place] [address] 17641- 3972 Aug, [facility] [id number] [place] [address] 05337 2543 Aug, [facility] [id number] [place] [address] 95962- 0673 Aug, 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 ; Hypokalemia E87.6 ; Irritable bowel K58.9 ; Essential hypertension I10 ; Pain in right shoulder M25.511 ; Seizure disorder G40.909 and Screening for lipid disorders Z13.220 [facility] [id number] [place] [address] 72374- 4647 28 Jul, 2016 Other chronic pain G89.29 and Pain in right shoulder M25.511 [facility] [id number] [place] [address] 04639- 1458 14 Jul, 2016 Biceps muscle strain, right, subsequent encounter S46.111D [facility] [id number] [place] [address] 14123 -9383 08 Jul, 2016 Arm pain, right M79.601 [facility] [id number] [place] [address] 13479- 4319 30 Jun, 2016 [place] [address] 46764- 9086 Jun, Acute non-recurrent frontal sinusitis J01.10 [facility] [facility] [id number] [place] [address] 46479- 5155 14 May, 2016 Generalized abdominal pain R10.84 ; Urinary tract infection without hematuria, site unspecified N39.0 ; Hypokalemia E87.6 ; Essential hypertension I10 ; Screening for lipid disorders Z13.220 ; Seizure R56.9 and Low back pain M54.5 [facility] [id number] [place] [address] 83597- 5722 Apr, [facility] [id number] [place] [address] 17128 -9149 Feb, [place] [id number] [place] [address] 25432- 2347 Jan, [place] [facility] [id number] [place] [address] 47410- 1563 Dec, 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 ; Hypokalemia E87.6 ; Irritable bowel K58.9 and Nausea R11.0 [facility] [id number] [place] [address] 50072 -8667 Dec, Generalized abdominal pain R10.84 [facility] [id number] [place] [address] 05305- 9414 Nov, [facility] [id number] [place] [address] 91702 -2065 Aug, Acute bronchitis J20.9 [facility] [id number] [place] [address] 38430- 7132 14 Aug, 2015 [facility] [id number] [place] [address] 36618- 0294 08 Aug, 2015 Low back pain M54.5 ; Hypokalemia E87.6 ; Chronic migraine without aura with status migrainosus, not intractable G43.701 ; Tremor, hereditary, 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 ; Irritable bowel K58.9 ; Essential hypertension I10 and Seizure R56.9 [facility] [id number] [place] [address] 01421- 4371 Aug, [facility] [facility] [id number] [place] [address] 01432- 0189 09 Jul, 2015 [place] [id number] [place] [address] 96752- 1766 03 Jul, 2015 Low back pain M54.5 ; Hypokalemia E87.6 ; Chronic migraine without aura with status migrainosus, not intractable G43.701 ; Tremor, hereditary, 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 ; Irritable bowel K58.9 ; Essential hypertension I10 and Seizure R56.9 [facility] [id number] [place] [address] 79981- 8057 Jun, Hypokalemia E87.6 [facility] [id number] [place] [address] 36055- 8641 15 Jun, 2015 ADD (attention deficit disorder) without hyperactivity F90.0 ; Generalized anxiety disorder F41.1 and Major depressive disorder, recurrent episode, moderate F33.1 [facility] [id number] [place] [address] 35959- 5212 13 Jun, 2015 Low back pain M54.5 ; Hypokalemia E87.6 ; Chronic migraine without aura with status migrainosus, not intractable G43.701 ; Tremor, hereditary, 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 ; Irritable bowel K58.9 ; Essential hypertension I10 and Seizure R56.9 [facility] [id number] [place] [address] 18027- 5556 Jun, [facility] [id number] [place] [address] 94763- 1532 May, [facility] [id number] [place] [address] 39280- 0870 May, Low back pain M54.5 ; Hypokalemia E87.6 ; Chronic migraine without aura with status migrainosus, not intractable G43.701 ; Tremor, hereditary, 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 ; Irritable bowel K58.9 ; Essential hypertension I10 ; Seizure R56.9 and Tinea capitis B35.0 [place] [address] 12105- 1354 May, Low back pain M54.5 ; Hypokalemia E87.6 ; Chronic migraine without aura with status migrainosus, not intractable G43.701 ; Tremor, hereditary, 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 ; Irritable bowel K58.9 ; Essential hypertension I10 ; Seizure R56.9 ; Otitis media, left H66.92 and Dysuria 788.1 [facility] [id number] [place] [address] 98351- 4075 May, Tooth pain K08.8 [facility] [id number] [place] [address] 38996- 4702 May, [facility] [id number] [place] [address] 40160- 9473 May, Low back pain M54.5 ; Hypokalemia E87.6 ; Chronic migraine without aura with status migrainosus, not intractable G43.701 ; Tremor, hereditary, 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 ; Irritable bowel K58.9 and Essential hypertension I10 [facility] [id number] [place] [address] 58041- 3573 Apr, Low back pain M54.5 ; Hypokalemia E87.6 ; Chronic migraine without aura with status migrainosus, not intractable G43.701 ; Tremor, hereditary, 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 and Irritable bowel K58.9 [facility] [id number] [place] [address] 25564- 0625 05 Apr, 2015 Low back pain M54.5 [facility] [id number] [place] [address] 57110- 8834 Mar, [facility] [id number] [place] [address] 74184- 8420 Mar, Irritable bowel syndrome with diarrhea K58.0 [facility] [id number] [place] [address] 06908- 5505 Mar, [facility] [address] 81251- 1688 Feb, [facility] [id number] [place] [address] 99486- 2469 Feb, [facility] [id number] [place] [address] 64463- 0913 Feb, Irritable bowel syndrome 564.1 ; Lumbago 724.2 and Cervical pain (neck) 723.1 [facility] [id number] [place] [address] 94296- 9262 Dec, Major depressive disorder, recurrent episode, moderate 296.32 and Generalized anxiety disorder 300.02 [facility] [id number] [place] [address] 63672- 8715 Nov, [facility] [address] 44166- 4192 Nov, Major depressive disorder, recurrent episode, moderate 296.32 [facility] [id number] [place] [address] 02001- 9196 Nov, Constipation 564.00 ; Nausea & vomiting 787.01 and Abdominal pain 789.00 [facility] [address]- 8970 Nov, [facility] [id number] [place] [address] 018354- 5186 October, [facility] [address] [address]- 8115 October, [facility] [id number] [place] [address] 31761- 1011 October, [facility] [id number] [place] [address] 728489- 3044 October, [facility] [id number] [place] [address] 95891- 9226 Sep, Dysuria 788.1 [facility] [id number] [place] [address] 10944- 9344 Sep, [facility] [address], [place] [address]- 3823 Sep, [facility] [id number] [place] [address] 90657- 6025 Sep, [facility] [id number], [place] [address]- 6850 Sep, [facility] [address], [place] [address]- 3445 Aug, [facility] [place] [facility] [address], [place] [address]- 9685 Aug, [facility] [id number]- 1608 Aug, [facility] [place] [facility] [id number]- 2440 Aug, [facility] [address] [address]- 1049 Aug, [facility] [place] [facility] [address] [id number] [place] [address]- 0963 18 Aug, 2014 [facility] [place] [facility] [address] [id number] [place] [address]- 0814 Aug, [facility] [place] [facility] [address] [id number] [place] [address]- 2546 Aug, [facility] [place] [facility] [address] [id number] [place] [address]- 8005 Aug, [facility] [place] [facility] [address] [id number] [place] [address]- 6545 Aug, [facility] [place] [facility] [address] [id number] [place] [address]- 0705 Jun, [facility] [place] [facility] [address] [id number] [place] [address]- 8761 Jun, [facility] [place] [facility] [address] [id number] [place] [address]- 1817 Jun, [facility] [place] [facility] [address] [id number] [place] [address]- 0771 Jun, [facility] [place] [facility] [address] [id number] [place] [address]- 2961 May, [facility] [place] [facility] [address] [id number] [place] [address]- 5950 May, [facility] [place] [facility] [address] [id number] [place] [address]- 5928 May, [facility] [place] [facility] [address] [id number] [place] [address]- 9441 May, [facility] [place] [facility] [address] [id number] [place] [address]- 2923 May, [facility] [place] [facility] [address] [id number] [place] [address]- 4106 May, [facility] [place] [facility] [address] [id number] [place] [address]- 1446 May, [facility] [place] [facility] [address] [id number] [place] [address]- 9285 May, [facility] [place] [facility] [address] [id number] [place] [address]- 6417 Mar, [facility] [place] [facility] [address] [id number] [place] [address]- 5084 Mar, [facility] [place] [facility] [address] [id number] [place] [address]- 6265 Mar, [facility] [place] [facility] [address] [id number] [place] [address]- 1325 Mar, [facility] [place] [facility] [address] [id number] [place] [address]- 9459 Mar, [facility] [place] [facility] [address] [id number] [place] [address]- 1365 Mar, [facility] [place] [facility] [address] [id number], [place] [address]- 4279 Mar, [facility] [place] [facility] [address] [id number] [place] [address]- 2070 Mar, [facility] [place] [facility] [address] [id number], [place] [address]- 9617 Mar, [facility] [place] [facility] [address] [id number] [address]- 8271 Mar, [facility] [place] [facility] [address] [id number], [place] [address]- 3951 Mar, [facility] [place] [facility] [address] [id number] [place] [address]- 7635 Mar, [facility] [place] [facility] [address] [id number], [place] [address]- 5069 Feb, [facility] [place] [facility] [address] [id number] [address]- 1574 Feb, [facility] [place] [facility] [address] [id number] [place] [address]- 2388 Feb, [facility] [place] [facility] [address] [id number] [place] [address]- 1796 Feb, [facility] [place] [facility] [address] [id number] [place] [address]- 4576 Feb, [facility] [place] [facility] [address] [id number] [place] [address]- 6226 Feb, [facility] [place] [facility] [address] [id number] [place] [address]- 1858 Jan, [facility] [place] [facility] [address] [id number] [place] [address]- 7464 Jan, [facility] [place] [facility] [address] [id number] [place] [address]- 5105 Jan, [facility] [place] [facility] [address] [id number] [place] [address] Jan, [facility] [place] [facility] [address] [id number] [place] [address] Jan, [facility] [place] [facility] [address] [id number] [place] [address] Jan, [facility] [place] [facility] [address] [id number] [place] [address] Jan, [facility] [place] [facility] [address] [id number] [place] [address] Jan, [facility] [place] [facility] [address] [id number] [place] [address] Dec, [facility] [place] [facility] [address] [id number] [place] [address] Dec, [facility] [place] [facility] [address] [id number] [place] [address] Dec, [facility] [place] [facility] [address] [id number] [place] [address] Dec, [facility] [place] [facility] [address] [id number] [place] [address] Dec, [facility] [place] [facility] [address] [id number] [place] [address] Dec, [facility] [place] [facility] [address] [id number] [place] [address] Dec, [facility] [place] [facility] [address] [id number] [place] [address]- [address] Dec, [facility] [place] [facility] [address] [id number] [place] [address] October, [facility] [place] [facility] [address] [id number] [place] [address] October, [facility] [place] [facility] [address] [id number] [place] [address] Sep, [facility] [place] [facility] [address] [id number] [place] [address] Sep, [facility] [place] [facility] [address] [id number] [place] [address]- [address] Sep, [facility] [place] [facility] [address] [id number] [place] [address]- [address] Sep, [facility] [place] [facility] [address] [id number] [place] [address] Sep, [facility] [place] [facility] [address] [id number] [place] [address]- [address] Sep, [facility] [place] [facility] [address] [id number] [place] [address] Sep, [facility] [place] [facility] [address] [id number] [place] [address]- [address] Sep, [facility] [place] [facility] [address] [id number] [place] [address]- [address] Sep, [facility] [place] [facility] [address] [id number] [place] [address]- [address] Sep, [facility] [place] [facility] [address] [id number] [place] [address]- [address] Sep, [facility] [place] [facility] [address] [id number] [place] [address] Sep, [facility] [place] [facility] [address] [id number] [place] [address] Aug, [facility] [place] [facility] [address] [id number] [place] [address] Aug, [facility] [place] [facility] [address] [id number] [place] [address] Aug, [facility] [place] [facility] [address] [id number] [place] [address] Jun, [facility] [place] [facility] [address] [id number] [place] [address]- [address] Jun, [facility] [place] [facility] [address] [id number] [place] [address] Jun, [facility] [place] [facility] [address] [id number] [place] [address]- [address] Jun, [facility] [place] [facility] [address] [id number] [place] [address]- [address] Jun, [facility] [place] [facility] [address] [id number] [place] [address] Jun, [facility] [place] [facility] [address] [id number] [place] [address] Jun, [facility] [place] [facility] [address] [id number] [place] [address] Jun, [facility] [place] [facility] [address] [id number] [place] [address] Jun, [facility] [place] [facility] [address] [id number] [place] [address] Jun, [facility] [place] [facility] [address] [id number] [place] [address] May, [facility] [address] [id number] [place] [address] May, [facility] [place] [facility] [address] [id number] [place] [address] 84[address] May, [facility] [address] [id number] [place] [address] May, [facility] [place] [facility] [address] [id number] [place] [address] Apr, [facility] [address] [id number] [place] [address] Apr, [facility] [address] [id number] [place] [address] Apr, [facility] [address] [id number] [place] [address] 94[address] Apr, [facility] [address] [id number] [place] [address] Apr, [facility] [address] [id number] [place] [address] Apr, [facility] [address] [id number] [place] [address] 4398 Apr, [facility] [place] [facility] [address] [id number] [place] [address] 4767 Apr, [facility] [address] [id number] [place] [address] 85[address] Mar, [facility] [place] [facility] [address] [id number] [place] [address] 3507 Mar, [facility] [place] [facility] [address] [id number] [place] [address] 6[address] Mar, [facility] [place] [facility] [address] [id number] [place] [address] 8288 Mar, [facility] [place] [facility] [address] [id number] [place] [address] Mar, [facility] [place] [facility] [address] [id number] [place] [address] 6257 Feb, [facility] [place] [facility] [address] [id number] [place] [address] 3532 Feb, [facility] [place] [facility] [address] [id number] [place] [address] 8637 Feb, [facility] [place] [facility] [address] [id number] [place] [address] Feb, [facility] [place] [facility] [address] [id number] [place] [address] 4[address] Feb, [facility] [place] [facility] [address] [id number] [place] [address] 0958 Jan, [facility] [place] [facility] [address] [id number] [place] [address]783 Jan, [facility] [place] [facility] [address] [id number] [place] [address]2 Nov, [facility] [place] [facility] [address] [id number] [place] [address] 9933 Nov, [facility] [place] [facility] [address] [id number] [place] [address] Nov, [facility] [place] [facility] [address] [id number] [address] Nov, [facility] [place] [facility] [address] [id number] [place] [address] 1708 October, [facility] [place] [facility] [address] [id number] [place] [address] 7399 Sep, [facility] [place] [facility] [address] [id number] [place] [address] Aug, [facility] [place] [facility] [address] [id number], [place] [address] Aug, [facility] [place] [facility] [address] [id number] [place] [address] 8394 Aug, [facility] [place] [facility] [address] [id number], [place] [address] Aug, [facility] [place] [facility] [address] [id number] [place] [address] 9743 Jul, [facility] [place] [facility] [address] [id number] [place] [address]- 3233 Jun, [facility] [place] [facility] [address] [id number] [place] [address]- 6424 Jun, [facility] [place] [facility] [address] [id number] [place] [address] May, [facility] [place] [facility] [address] [id number] [place] [address] 8153 May, [facility] [place] [facility] [address] [facility] [id number] [id number] Mar, [facility] [place] [facility] [address] [id number] [place] [address] 9866 Mar, [facility] [place] [facility] [address] [facility] [id number], [place] [address] 1601 Mar, [facility] [place] [facility] [address] [id number], [place] [address] 9810 Mar, [facility] [place] [facility] [address] [id number], [place] [address] Mar, [facility] [place] [facility] [address] [id number] [place] [address] Mar, [facility] [place] [facility] [address] [facility] [id number] [address] Mar, [facility] [place] [facility] [address] [id number] [address] Mar, [facility] [place] [facility] [address] [id number] [place] [address]- 4562 22 Mar, 2011 [facility] [place] [facility] [address] [id number] [place] [address]- 0430 20 Mar, 2011 [facility] [place] [facility] [address] [id number] [place] [address]- 6898 20 Mar, 2011 [facility] [place] [facility] [address] [id number] [place] [address] 17 Mar, 2011 [facility] [place] [facility] [address] [id number] [place] [address]- 2249 17 Mar, 2011 [facility] [place] [facility] [address] [id number] [place] [address]- 7799 15 Mar, 2011 [facility] [place] [facility] [address] [id number] [place] [address]- 8532 15 Mar, 2011 [facility] [place] [facility] [address] [id number] [place] [address]- 4230 15 Mar, 2012 [facility] [place] [facility] [address] [id number] [place] [address]- 8140 15 Mar, 2012 [facility] [place] [facility] [address] [id number] [place] [address]- 4856 Mar, [facility] [place] [facility] [address] [id number] [place] [address]- 6247 Mar, [facility] [place] [facility] [address] [id number] [place] [address]- 9938 Mar, [facility] [place] [facility] [address] [id number] [place] [address]- 1839 Mar, [facility] [place] [facility] [address] [id number] [place] [address]- 7157 Mar, [facility] [place] [facility] [address] [id number] [place] [address]- 4624 Mar, [facility] [place] [facility] [address] [id number] [place] [address]- 2622 19 Feb, 2011 [facility] [place] [facility] [address] [id number] [place] [address]- 2691 18 Sep, 2011 [facility] [place] [facility] [address] [id number] [place] [address]- 9153 17 Feb, 2012 [facility] [place] [facility] [address] [id number] [place] [address]- 0200 14 Feb, 2012 [facility] [place] [facility] [address] [id number] [place] [address]- 3985 14 Feb, 2011 [facility] [place] [facility] [address] [id number] [place] [address]- 9271 12 Feb, 2012 [facility] [place] [facility] [address] [id number] [place] [address]- 8056 10 Feb, 2012 [facility] [place] [facility] [address] [id number] [place] [address]- 8464 31 Jan, 2012 [facility] [place] [facility] [address] [id number] [place] [address]- 4025 30 Jan, 2012 [facility] [place] [facility] [address] [id number] [place] [address]- 6006 22 Jan, 2012 [facility] [place] [facility] [address] [id number] [place] [address]- 4121 20 Jan, 2012 [facility] [place] [facility] [address] [id number] [place] [address]- 6073 17 Jan, 2012 [facility] [place] [facility] [address] [id number] [place] [address]- 5117 17 Jan, 2012 [facility] [place] [facility] [address] [id number] [place] [address]- 6490 17 Jan, 2012 [facility] [place] [facility] [address] [id number] [place] [address]- 3517 16 Jan, 2012 [facility] [place] [facility] [address] [id number] [place] [address]- 5318 13 Jan, 2012 [facility] [place] [facility] [address] [id number] [place] [address]- 0908 07 Jan, 2012 [facility] [place] [facility] [address] [id number] [place] [address]- 6079 26 Dec, 2011 [facility] [place] [facility] [address] [id number] [place] [address]- 1686 Dec, [facility] [place] [facility] [address] [id number] [place] [address]- 3306 Dec, [facility] [place] [facility] [address] [id number] [place] [address] 2547 Dec, [facility] [place] [facility] [address] [id number] [place] [address]- 8145 18 Dec, 2011 [facility] [place] [facility] [address] [id number] [place] [address]- 5029 17 Dec, 2011 [facility] [place] [facility] [address] [id number] [place] [address]- 4853 16 Dec, 2011 [facility] [place] [facility] [address] [id number] [place] [address]- 3345 14 Dec, 2011 [facility] [place] [facility] [address] [id number] [place] [address]- 6164 Dec, [facility] [place] [facility] [address] [id number] [place] [address]- 0012 Dec, [facility] [place] [facility] [address] [id number] [place] [address]- 6801 Dec, [facility] [place] [facility] [address] [id number] [place] [address]- 2544 Nov, [facility] [place] [facility] [address] [id number] [place] [address]- 1495 Nov, [facility] [place] [facility] [address] [id number] [place] [address]- 8677 Nov, [facility] [place] [facility] [address] [id number] [place] [address]- 1699 Nov, [facility] [address] [id number] [address]- [address]9 Nov, [facility] [address] [id number], [place] [address]- 8486 Nov, [facility] [id number], [place] [address]- 3135 Nov, [facility] [id number] [place] [address]- [address]376 Nov, [facility] [id number], [place] [address]- 7443 Nov, [facility] [id number], [place] [address]- 0729 Nov, [facility] [id number], [place] [address]- 7272 October, IMMUNIZATIONS No Known Immunizations SOCIAL HISTORY Never Assessed REASON FOR VISIT request return call PLAN OF CARE VITAL SIGNS [...]
--- OUTSIDE RECORDS SUMMARY | 2018-08-12 15:06 | XMS REPORT ---
Author Author SCARLET ALVES Organization [facility] Address [address] [place] [address] Care Team Providers Care Warper Tender Name Role Phone SCARLET ALVES Unavailable PROBLEMS Type Condition ICD9-CM Code VKC28-AJ Code Onset Dates Condition Status SNOMED Code Problem Essential hypertension I10 Active 59212558 Problem Other chronic pain G89.29 Active 70301415 Problem 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 Active 18609579 Problem Other chronic pain G89.29 Active 67129705 Problem Intractable chronic migraine without aura and with status migrainosus G43.711 Active 856142056 Problem Primary insomnia F51.01 Active 4430020 Problem Seizure disorder G40.909 Active 830036993 Problem Moderate persistent asthma with exacerbation J45.41 Active 080318903 Problem Moderate persistent asthma without complication J45.40 Active 529774950 Problem Elevated liver enzymes R74.8 Active 348624052 Problem Hyperlipidemia LDL goal <100 E78.5 Active 68576202 Problem Hypokalemia E87.6 Active 05062672 Problem Tremor, hereditary, 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 Active 863134903 Problem Abnormal glucose R73.09 Active 764715134 Problem Irritable bowel K58.9 Active 32944700 Problem Major depressive disorder, recurrent episode, moderate F33.1 Active 862455977 Problem Chronic migraine without aura with status migrainosus, not intractable G43.701 Active 514825423 ALLERGIES Substance Reaction Event Type Date Status Morphine Sulfate rebound headaches Drug Allergy Apr, Active Gabapentin coma Drug Allergy Apr, Active Baclofen anaphylaxis Drug Allergy Apr, Active Amoxicillin itching Drug Allergy Apr, Active NSAIDS Hallucinations Non Drug Allergy Apr, Active ENCOUNTERS Encounter Location Date Diagnosis [facility] [address] [facility] [id number] [address] May, [facility] [address] [facility] [id number] [address] May, [facility] [address] [address] [address] Apr, Bowel habit changes R19.4 and Acute cystitis without hematuria N30.00 [facility] [id number] [place] [address] 62280- 8336 Apr, Pain in right shoulder M25.511 [facility] [id number] [place] [address] 25650- 1510 Apr, [facility] [id number] [place] [address] 85724- 7143 Mar, [facility] [id number] [place] [address] 87288- 2346 Mar, [facility] [id number] [place] [address] 12308- 4436 Mar, [facility] [id number] [place] [address] 36291- 3236 Mar, [facility] [id number] [place] [address] 19832- 0467 Feb, [facility] [id number] [place] [address] 96489- 8357 Feb, [facility] [id number] [place] [address] 86226- 4876 Feb, [facility] [id number] [place] [address] 25813- 6593 Jan, [facility] [id number] [place] [address] 48617- 1099 Dec, [facility] [id number] [place] [address] 183362- 6296 Dec, Other chronic pain G89.29 ; Pain in right shoulder M25.511 and Liver enzyme elevation R74.8 [facility] [id number] [place] [address] 87763- 4154 Nov, Other chronic pain G89.29 and Pain in right shoulder M25.511 [facility] [id number] [place] [address] 57338- 1872 October, [facility] [id number] [place] [address] 15553 -5864 October, Right shoulder pain, unspecified chronicity M25.511 [facility] [id number] [place] [address] 21858- 1598 Aug, Elevated liver enzymes R74.8 and Hyperlipidemia LDL goal < 100 E78.5 [place] [id number] [place] [address] 16744- 0815 Aug, [place] [id number] [place] [address] 31027- 6689 Jul, [facility] [id number] [place] [address] 35624- 0367 Jul, Intractable chronic migraine without aura and with status migrainosus G43.711 ; Fever, unspecified fever cause R50.9 and Elevated liver enzymes R74.8 [place] [id number] [place] [address] 09381- 6775 Jun, Difficulty urinating R39.198 and Moderate persistent asthma with exacerbation J45.41 [place] [id number] [place] [address] 46814- 6013 Jun, [facility] [id number] [place] [address] 84286- 4739 Jun, Moderate persistent asthma with exacerbation J45.41 [facility] [place] [id number] [place] [address] 93125- 4845 May, Elevated liver enzymes R74.8 and Hyperlipidemia LDL goal < 100 E78.5 [place] [id number] [place] [address] 46000- 8883 May, Elevated lipids E78.5 [facility] [id number] [place] [address] 59227- 5150 Apr, Elevated liver enzymes R74.8 [place] [address] 83411- 7504 Apr, Elevated liver enzymes R74.8 [place] [id number] [place] [address] 94064- 9522 Apr, Superior glenoid labrum lesion of right shoulder, subsequent encounter S43.431D [place] [address] 95133- 3821 Apr, Hypokalemia E87.6 ; Major depressive disorder, recurrent episode, moderate F33.1 ; Other abnormalities of breathing R06.89 and Dyspnea, unspecified R06.00 [facility] [id number] [place] [address] 62047 -5142 Mar, Moderate persistent asthma without complication J45.40 [place] [address] 08540- 4777 Mar, Impingement syndrome of right shoulder M75.41 [facility] [id number] [place] [address] 95634- 4940 Jan, [facility] [id number] [place] [address] 83501- 0742 Jan, Chronic migraine without aura with status migrainosus, not intractable G43.701 ; Essential hypertension I10 ; Irritable bowel K58.9 ; Primary insomnia F51.01 and Hypokalemia E87.6 [place] [id number] [place] [address] 66826- 3890 Dec, [place] [address] 34348- 6129 Dec, Pain in right shoulder M25.511 [facility] [id number] [place] [address] 73089- 2952 Dec, Essential hypertension I10 [place] [address] [address]- 0511 Dec, [facility] [id number] [place] [address] 11910- 8409 30 Nov, 2016 Essential hypertension I10 [facility] [id number] [place] [address] 63486- 4436 14 Nov, 2016 Pain in right shoulder M25.511 [facility] [id number] [place] [address] 80742- 0213 13 Nov, 2016 Pain in right shoulder M25.511 [facility] [id number] [place] [address] 89306- 5816 October, [facility] [id number] [place] [address] 10589- 6685 October, Pain in right shoulder M25.511 [facility] [id number] [place] [address] 71911- 4213 Sep, Arm pain, right M79.601 [facility] [id number] [place] [address] 14718- 5955 Sep, [facility] [id number] [place] [address] 21469- 1904 Sep, Abnormal glucose R73.09 and Elevated lipids E78.5 [facility] [address] [place] [address] 53756- 0972 Sep, Abnormal glucose R73.09 and Elevated lipids E78.5 [facility] [address] [address]- 9588 Aug, [facility] [id number] [place] [address] 80120- 2946 Aug, [facility] [address] [address]- 0476 Aug, [facility] [id number] [place] [address] 31706- 0694 Aug, 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 ; Hypokalemia E87.6 ; Irritable bowel K58.9 ; Essential hypertension I10 ; Pain in right shoulder M25.511 ; Seizure disorder G40.909 and Screening for lipid disorders Z13.220 [facility] [id number] [place] [address] 50897- 1465 28 Jul, 2016 Other chronic pain G89.29 and Pain in right shoulder M25.511 [place] [address] 03507- 2962 14 Jul, 2016 Biceps muscle strain, right, subsequent encounter S46.111D [facility] [address] 58351 -0038 08 Jul, 2016 Arm pain, right M79.[address] 99503- 5003 Jun, [address] 17018- 7541 Jun, Acute non-recurrent frontal sinusitis J01.[address] 13476- 9094 May, Generalized abdominal pain R10.84 ; Urinary tract infection without hematuria, site unspecified N39.0 ; Hypokalemia E87.6 ; Essential hypertension I10 ; Screening for lipid disorders Z13.220 ; Seizure R56.9 and Low back pain M54.5 [facility] [place] [id number] [place] [address] 64841- 7059 Apr, [facility] [place] [id number] [place] [address] 27051 -3251 Feb, [address] 62963- 5081 Jan, [place] [id number] [place] [address] 35954- 7711 Dec, 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 ; Hypokalemia E87.6 ; Irritable bowel K58.9 and Nausea R11.0 [facility] [id number] [place] [address] 73088 -8789 Dec, Generalized abdominal pain R10.84 [place] [id number] [place] [address] 13985- 1462 Nov, [facility] [address] 89020 -4457 Aug, Acute bronchitis J20.9 [place] [id number] [place] [address] 81098- 8841 Aug, [place] [address] 93350- 3194 08 Aug, 2015 Low back pain M54.5 ; Hypokalemia E87.6 ; Chronic migraine without aura with status migrainosus, not intractable G43.701 ; Tremor, hereditary, 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 ; Irritable bowel K58.9 ; Essential hypertension I10 and Seizure R56.9 [place] [id number] [place] [address] 70167- 2932 Aug, [place] [id number] [place] [address] 64546- 6645 Jul, [place] [id number] [place] [address] 24458- 2147 03 Jul, 2015 Low back pain M54.5 ; Hypokalemia E87.6 ; Chronic migraine without aura with status migrainosus, not intractable G43.701 ; Tremor, hereditary, 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 ; Irritable bowel K58.9 ; Essential hypertension I10 and Seizure R56.9 [place] [id number] [place] [address] 45173- 7007 Jun, Hypokalemia E87.6 [place] [id number] [place] [address] 22199- 8059 15 John, 2016 ADD (attention deficit disorder) without hyperactivity F90.0 ; Generalized anxiety disorder F41.1 and Major depressive disorder, recurrent episode, moderate F33.1 [place] [address] 56790- 5930 Jun, Low back pain M54.5 ; Hypokalemia E87.6 ; Chronic migraine without aura with status migrainosus, not intractable G43.701 ; Tremor, hereditary, 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 ; Irritable bowel K58.9 ; Essential hypertension I10 and Seizure R56.9 [place] [address] 73099- 7609 Jun, [place] [address] 30646- 7667 May, [place] [address] 72654- 9857 May, Low back pain M54.5 ; Hypokalemia E87.6 ; Chronic migraine without aura with status migrainosus, not intractable G43.701 ; Tremor, hereditary, 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 ; Irritable bowel K58.9 ; Essential hypertension I10 ; Seizure R56.9 and Tinea capitis B35.0 [place] [address] 41023- 6831 17 May, 2015 Low back pain M54.5 ; Hypokalemia E87.6 ; Chronic migraine without aura with status migrainosus, not intractable G43.701 ; Tremor, hereditary, 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 ; Irritable bowel K58.9 ; Essential hypertension I10 ; Seizure R56.9 ; Otitis media, left H66.92 and Dysuria 788.1 [place] [address] 49958- 8529 14 May, 2015 Tooth pain K08.8 [place] [address] 51342- 4901 May, [place] [address] 24901- 3649 May, Low back pain M54.5 ; Hypokalemia E87.6 ; Chronic migraine without aura with status migrainosus, not intractable G43.701 ; Tremor, hereditary, 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 ; Irritable bowel K58.9 and Essential hypertension I10 [facility] [id number] [place] [address] 05508- 7797 18 Apr, 2015 Low back pain M54.5 ; Hypokalemia E87.6 ; Chronic migraine without aura with status migrainosus, not intractable G43.701 ; Tremor, hereditary, 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 and Irritable bowel K58.9 [place] [address] 63005- 0447 Apr, Low back pain M54.5 [place] [id number] [place] [address] 85740- 1408 Mar, [facility] [address] 90550- 1111 Mar, Irritable bowel syndrome with diarrhea K58.0 [facility] [id number] [place] [address] 05716- 9629 Mar, [facility] [id number] [place] [address] 50067- 8550 Feb, [place] [id number] [place] [address] 00094- 4144 Feb, [facility] [address] 07398- 1272 03 Feb, 2015 Irritable bowel syndrome 564.1 ; Lumbago 724.2 and Cervical pain (neck) 723.1 [place] [address] 04250- 6617 Dec, Major depressive disorder, recurrent episode, moderate 296.32 and Generalized anxiety disorder 300.02 [place] [address] 61686- 6658 Nov, [facility] [address] [address]- 9972 Nov, Major depressive disorder, recurrent episode, moderate 296.32 [facility] [id number] [place] [address] 186433- 6170 Nov, Constipation 564.00 ; Nausea & vomiting 787.01 and Abdominal pain 789.00 [facility] [id number] [place] [address] 66863- 4406 Nov, [facility] [id number] [place] [address] 43635- 1778 October, [facility] [id number] [place] [address] 28875- 0242 October, [facility] [id number] [place] [address] 76218- 2497 October, [facility] [id number] [place] [address] 38234- 4799 October, [facility] [id number] [place] [address] 45622- 6901 Sep, Dysuria 788.1 [facility] [id number] [place] [address] 63862- 3387 Sep, [facility] [address] [place] [address] 09879- 4024 Sep, [facility] [id number] [place] [address] 61732- 8180 Sep, [facility] [id number] [place] [address] 33596- 4544 Sep, [facility] [id number] [place] [address] 92768- 7686 Aug, [facility] [address] 7569 Aug, [facility] [id number] [place] [address]- 9008 Aug, [facility] [place] [facility] [address] [id number] [place] [address]- 3222 Aug, [facility] [place] [facility] [address] [id number] [place] [address]- 0177 Aug, [facility] [place] [facility] [address] [id number] [place] [address]- 0497 Aug, [facility] [place] [facility] [address] [id number] [place] [address]- 9701 Aug, [facility] [place] [facility] [address] [id number] [place] [address]- 5175 Aug, [facility] [place] [facility] [address] [id number] [place] [address]- 3386 Aug, [facility] [place] [facility] [address] [id number] [place] [address]- 1085 Aug, [facility] [place] [facility] [address] [id number] [place] [address]- 4429 Jun, [facility] [place] [facility] [address] [id number] [place] [address]- 3428 Jun, [facility] [place] [facility] [address] [id number] [place] [address]- 7691 Jun, [facility] [place] [facility] [address] [id number] [place] [address]- 1319 Jun, [facility] [place] [facility] [address] [id number] [place] [address]- 1841 May, [facility] [place] [facility] [address] [id number] [place] [address]- 3532 May, [facility] [place] [facility] [address] [id number] [place] [address]- 0949 May, [facility] [place] [facility] [address] [id number] [place] [address]- 6763 May, [facility] [place] [facility] [address] [id number] [place] [address]- 2348 May, [facility] [place] [facility] [address] [id number] [place] [address]- 2077 May, [facility] [place] [facility] [address] [id number] [place] [address]- 2135 May, [facility] [place] [facility] [address] [id number] [place] [address]- 2567 May, [facility] [place] [facility] [address] [id number] [place] [address]- 5650 Mar, [facility] [place] [facility] [address] [id number] [place] [address]- 0632 Mar, [facility] [place] [facility] [address] [id number] [place] [address]- 9114 Mar, [facility] [place] [facility] [address] [id number] [place] [address]- 5173 Mar, [facility] [place] [facility] [address] [id number] [place] [address]- 8912 Mar, [facility] [place] [facility] [address] [id number] [place] [address]- 6912 Mar, [facility] [place] [facility] [address] [id number] [place] [address]- 0876 Mar, [facility] [place] [facility] [address] [id number] [place] [address]- 1266 Mar, [facility] [place] [facility] [address] [id number] [place] [address]- 1596 Mar, [facility] [place] [facility] [address] [id number] [place] [address]- 3555 Mar, [facility] [place] [facility] [address] [id number] [place] [address]- 5236 Mar, [facility] [place] [facility] [address] [id number] [place] [address]- 3147 Mar, [facility] [place] [facility] [address] [id number] [place] [address]- 6403 Feb, [facility] [place] [facility] [address] [id number] [place] [address]- 0149 Feb, [facility] [place] [facility] [address] [id number] [place] [address]- 3399 Feb, [facility] [place] [facility] [address] [id number] [place] [address]- 5383 Feb, [facility] [place] [facility] [address] [id number] [place] [address]- 8630 Feb, [facility] [place] [facility] [address] [id number] [place] [address]- 9404 Feb, [facility] [place] [facility] [address] [id number] [place] [address]- 8073 Jan, [facility] [place] [facility] [address] [id number] [place] [address]- 4504 Jan, [facility] [place] [facility] [address] [id number] [place] [address]- 3305 Jan, [facility] [place] [facility] [address] [id number] [place] [address]- 1947 Jan, [facility] [place] [facility] [address] [id number] [place] [address]- 1965 Jan, [facility] [place] [facility] [address] [id number] [place] [address]- 8413 Jan, [facility] [place] [facility] [address] [id number] [place] [address]- 3466 Jan, [facility] [place] [facility] [address] [id number] [place] [address] Jan, [facility] [place] [facility] [address] [id number] [place] [address] Dec, [facility] [place] [facility] [address] [id number] [place] [address] Dec, [facility] [place] [facility] [address] [id number] [place] [address] Dec, [facility] [place] [facility] [address] [id number] [place] [address] Dec, [facility] [place] [facility] [address] [id number] [place] [address] Dec, [facility] [place] [facility] [address] [id number] [place] [address] Dec, [facility] [place] [facility] [address] [id number] [place] [address] Dec, [facility] [place] [facility] [address] [id number] [place] [address] Dec, [facility] [place] [facility] [address] [id number] [place] [address] October, [facility] [place] [facility] [address] [id number] [place] [address] October, [facility] [place] [facility] [address] [id number] [place] [address] Sep, [facility] [place] [facility] [address] [id number] [place] [address] Sep, [facility] [place] [facility] [address] [id number] [place] [address] Sep, [facility] [place] [facility] [address] [id number] [place] [address] Sep, [facility] [place] [facility] [address] [id number] [place] [address] Sep, [facility] [place] [facility] [address] [id number] [place] [address] Sep, [facility] [place] [facility] [address] [id number] [place] [address]- [address] Sep, [facility] [place] [facility] [address] [id number] [place] [address] Sep, [facility] [place] [facility] [address] [id number] [place] [address]- [address] Sep, [facility] [place] [facility] [address] [id number] [place] [address] Sep, [facility] [place] [facility] [address] [id number] [place] [address]- [address] Sep, [facility] [place] [facility] [address] [id number] [place] [address] Sep, [facility] [place] [facility] [address] [id number] [place] [address] Aug, [facility] [place] [facility] [address] [id number] [place] [address] Aug, [facility] [place] [facility] [address] [id number] [place] [address] Aug, [facility] [place] [facility] [address] [id number] [place] [address] Jun, [facility] [place] [facility] [address] [id number] [place] [address] Jun, [facility] [place] [facility] [address] [id number] [place] [address] Jun, [facility] [place] [facility] [address] [id number] [place] [address] Jun, [facility] [place] [facility] [address] [id number] [place] [address] Jun, [facility] [place] [facility] [address] [id number] [place] [address] Jun, [facility] [place] [facility] [address] [id number] [place] [address] Jun, [facility] [place] [facility] [address] [id number] [address] Jun, [facility] [address] [id number] [place] [address] Jun, [facility] [place] [facility] [address] [id number] [place] [address] Jun, [facility] [place] [facility] [address] [facility] [id number] [place] [address] May, [facility] [place] [facility] [address] [id number] [place] [address] May, [facility] [place] [facility] [address] [id number] [place] [address] May, [facility] [place] [facility] [address] [id number] [place] [address] 40[address] May, [facility] [address] [id number] [place] [address] Apr, [facility] [place] [facility] [address] [id number] [place] [address] Apr, [facility] [place] [facility] [address] [facility] [id number] [place] [address] Apr, [facility] [place] [facility] [address] [facility] [id number] [place] [address] Apr, [facility] [place] [facility] [address] [facility] [id number] [address] Apr, [facility] [place] [facility] [address] [id number] [address] Apr, [facility] [place] [facility] [address] [id number] [place] [address] 1147 Apr, [facility] [place] [facility] [address] [facility] [id number] [place] [address] 389[address] Apr, [facility] [place] [facility] [address] [facility] [id number] [place] [address] Mar, [facility] [place] [facility] [address] [id number] [place] [address]- 1036 Mar, [facility] [place] [facility] [address] [id number] [place] [address]- 67[address] Mar, [facility] [place] [facility] [address] [id number] [place] [address]- 4[address] Mar, [facility] [place] [facility] [address] [id number] [place] [address]- 118[address] Mar, [facility] [place] [facility] [address] [id number] [place] [address] Feb, [facility] [place] [facility] [address] [id number] [place] [address]- [address] Feb, [facility] [place] [facility] [address] [id number] [place] [address]- 8661 05 Feb, 2013 [facility] [place] [facility] [address] [id number] [place] [address]- 8062 Feb, [facility] [place] [facility] [address] [id number] [place] [address]- 9793 Feb, [facility] [place] [facility] [address] [id number] [place] [address]- 7970 Jan, [facility] [place] [facility] [address] [id number] [place] [address]- 4868 Jan, [facility] [place] [facility] [address] [id number] [place] [address] 9229 Nov, [facility] [place] [facility] [address] [id number] [place] [address]- 46[address] Nov, [facility] [place] [facility] [address] [id number] [place] [address]- 9847 Nov, [facility] [place] [facility] [address] [id number] [place] [address]- 7966 Nov, [facility] [place] [facility] [address] [id number] [place] [address] 6506 October, [facility] [place] [facility] [address] [id number] [place] [address] 3668 Sep, [facility] [place] [facility] [address] [id number] [place] [address] 1433 Aug, [facility] [place] [facility] [address] [id number] [place] [address] Aug, [facility] [place] [facility] [address] [id number] [place] [address]- 8870 Aug, [facility] [place] [facility] [address] [id number] [place] [address] 75[address] Aug, [facility] [place] [facility] [address] [id number] [place] [address] 1248 Jul, [facility] [place] [facility] [address] [id number] [place] [address] 8983 Jun, [facility] [place] [facility] [address] [id number] [address] Jun, [facility] [place] [facility] [address] [id number] [address] May, [facility] [place] [facility] [address] [id number] [place] [address]- 1527 May, [facility] [place] [facility] [address] [id number] [place] [id number] Mar, [facility] [place] [facility] [address] [id number] [place] [address] 7663 Mar, [facility] [place] [facility] [address] [id number] [place] [address] Mar, [facility] [place] [facility] [address] [id number] [place] [address] Mar, [facility] [place] [facility] [address] [id number] [place] [address]- 1081 Mar, [facility] [place] [facility] [address] [id number] [place] [address]- 8899 23 Mar, 2011 [facility] [place] [facility] [address] [id number] [place] [address]- 5540 23 Mar, 2011 [facility] [place] [facility] [address] [id number] [place] [address]- 4380 23 Mar, 2011 [facility] [place] [facility] [address] [id number] [place] [address]- 6400 22 Mar, 2011 [facility] [place] [facility] [address] [id number] [place] [address]- 9937 20 Mar, 2011 [facility] [place] [facility] [address] [id number] [place] [address]- 2901 20 Mar, 2011 [facility] [place] [facility] [address] [id number] [place] [address]- 8515 17 Mar, 2011 [facility] [place] [facility] [address] [id number] [place] [address]- 9256 17 Mar, 2011 [facility] [place] [facility] [address] [id number] [place] [address]- 4524 15 Mar, 2011 [facility] [place] [facility] [address] [id number] [place] [address]- 8916 15 Mar, 2011 [facility] [place] [facility] [address] [facility] [id number] [place] [address]- 7862 15 Mar, 2011 [facility] [place] [facility] [address] [id number] [place] [address]- 4162 15 Mar, 2011 [facility] [place] [facility] [address] [id number] [address]- [address]259 11 Mar, 2011 [facility] [place] [facility] [address] [id number] [place] [address]- 1822 11 Mar, 2011 [facility] [place] [facility] [address] [facility] [id number] [place] [address]- 7691 08 Mar, 2011 [facility] [place] [facility] [address] [facility] [id number] [address]- 4[address] 08 Mar2011 [facility] [place] [facility] [address] [id number] [place] [address]- 1408 03 Mar, 2012 [facility] [place] [facility] [address] [id number] [place] [address]- 9977 Mar, [facility] [place] [facility] [address] [id number] [place] [address]- 3346 19 Feb, 2012 [facility] [place] [facility] [address] [id number] [place] [address]- 4366 18 Feb, 2012 [facility] [place] [facility] [address] [id number] [place] [address]- 0291 17 Feb, 2012 [facility] [place] [facility] [address] [id number] [place] [address]- 0511 14 Feb, 2012 [facility] [place] [facility] [address] [id number] [place] [address]- 9301 14 Feb, 2012 [facility] [place] [facility] [address] [id number] [place] [address]- 0127 12 Feb, 2012 [facility] [place] [facility] [address] [id number] [place] [address]- 3415 10 Feb, 2012 [facility] [place] [facility] [address] [id number] [place] [address]- 4987 31 Jan, 2012 [facility] [place] [facility] [address] [id number] [place] [address]- 3723 30 Jan, 2012 [facility] [place] [facility] [address] [id number] [place] [address]- 0213 22 Jan, 2012 [facility] [place] [facility] [address] [id number] [place] [address]- 5045 Jan, [facility] [place] [facility] [address] [id number] [place] [address]- 0325 Jan, [facility] [place] [facility] [address] [id number] [place] [address]- 6870 17 Jan, 2012 [facility] [place] [facility] [address] [id number] [place] [address]- 3026 17 Jan, 2012 [facility] [place] [facility] [address] [id number] [place] [address]- 1805 16 Jan, 2012 [facility] [place] [facility] [address] [id number] [place] [address]- 9471 13 Jan, 2012 [facility] [place] [facility] [address] [id number] [place] [address]- 8207 Jan, [facility] [place] [facility] [address] [id number] [place] [address]- 7715 26 Dec, 2011 [facility] [place] [facility] [address] [id number] [place] [address]- 9283 24 Dec, 2011 [facility] [place] [facility] [address] [id number] [place] [address]- 5992 Dec, [facility] [place] [facility] [address] [id number] [place] [address]- 1727 Dec, [facility] [place] [facility] [address] [id number] [place] [address]- 3941 Dec, [facility] [place] [facility] [address] [id number] [place] [address]- 0203 Dec, [facility] [place] [facility] [address] [id number] [place] [address]- 9330 Dec, [facility] [place] [facility] [address] [id number] [place] [address]- 5862 14 Dec, 2011 [facility] [place] [facility] [address] [id number] [place] [address]- 8562 Dec, [facility] [place] [facility] [address] [id number] [place] [address]- 5804 Dec, [facility] [place] [facility] [address] [id number] [place] [address]- 5386 Dec, [facility] [place] [facility] [address] [id number] [place] [address]- 3121 Nov, [facility] [place] [facility] [id number] [address] 0[address] 27 Nov, 2011 [facility] [id number] [address]- 5064 Nov, [facility] [id number] [address]- 8605 Nov, [facility] [id number] [address]- 3211 Nov, [facility] [id number] [place] [address] 1212 Nov, [facility] [id number] [place] [address]- 3792 Nov, [facility] [id number] [place] [address]- 2408 Nov, [facility] [id number] [place] [address]- 8695 Nov, [facility] [id number] [address]- 1435 Nov, [facility] [id number] [place] [address]- 1610 October, IMMUNIZATIONS No Known Immunizations SOCIAL HISTORY Never Assessed REASON FOR VISIT possible issues bowels, PT reports for the last two days she has been swollen, and when she urinates it has a poop smell. PT notes this happened in the past ( 2014) and she ended up in [place] having to get a lower/upper GI. PT notes she is able to go but not a lot and her bowels are soft -Horacio ODELL PLAN OF CARE Activity Details Pending Test CBC VITAL SIGNS Height 65 in 2018-05-02 Weight 207.7 lbs 2018-05-02 Temperature 98.4 degrees Fahrenheit 2018-05-02 Heart Rate 86 bpm 2018-05-02 Respiratory Rate 20 2018-05-02 Oximetry 98 % 2018-05-02 BMI 34.56 kg/m2 2018-05-02 Blood pressure systolic 132 mmHg 2018-05-02 Blood pressure diastolic 70 mmHg 2018-05-02 MEDICATIONS Medication Instructions Dosage Frequency Start Date End Date Duration Status Pravastatin Sodium 20 mg Orally Once a day 1 tablet 24h 08 May, 2017 Not-Taking Dicyclomine HCl 20 mg Orally Four times a day-Must have appt for further refills 1 tablet 30 Active Zanaflex 4 mg Orally 2 times a day 1 tablet as needed 12h 30 Active Albuterol Sulfate 108 (90 Base) mcg/act inhale 2 puffs by inhalation route every 4-6 hours as neededPRNcough or wheezing Nov, Active Qvar 40 MCG/ACT Inhalation Twice a day with spacer device 2 puffs Jun Not-Taking Amlodipine Besylate 2.5 MG Orally Once a day 1 tablet 24h Jan, Active Zofran 4 MG Orally 3 times a day 1 tablet 8h Apr, Active Omeprazole 40 mg Orally Once a day 1 capsule 24h May, Not- Taking Amitriptyline HCl 25 MG Orally Once a day 1 tablet at hs 24h Active Propranolol HCl 80MG Orally Twice a day 1 tablet 12h Active Macrobid 100 MG Orally every 12 hrs 1 capsule with food 12h Apr, 7 day(s) Active Microspacer - by inhalation route twice a day with inhaler as directed Jun, Not-Taking RESULTS No Results PROCEDURES Procedure Date Ordered Result Body Site LIPID PANEL May 02, 2018 COMPLETE CBC W/AUTO DIFF WBC May 02, 2018 COMPREHEN METABOLIC PANEL May 02, 2018 VENIPUNCT, ROUTINE* May 02, 2018 ASSAY THYROID STIM HORMONE May 02, 2018 INSTRUCTIONS MEDICATIONS ADMINISTERED No Known Medications MEDICAL [...]
--- OUTSIDE RECORDS SUMMARY | 2018-08-12 15:07 | XMS REPORT ---
Author Author SCARLET ALVES Organization [facility] Address [address] [place] [address] Care Team Providers Care Rn Employee Health Name Role Phone SCARLET ALVES Unavailable PROBLEMS Type Condition ICD9-CM Code [id number] Code Onset Dates Condition Status SNOMED Code Problem Essential hypertension I10 Active 08321043 Problem Other chronic pain G89.29 Active 00887351 Problem 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 Active 20210323 Problem Other chronic pain G89.29 Active 57092224 Problem Intractable chronic migraine without aura and with status migrainosus G43.711 Active 842080681 Problem Primary insomnia F51.01 Active 7190049 Problem Seizure disorder G40.909 Active 905421104 Problem Moderate persistent asthma with exacerbation J45.41 Active 040689039 Problem Moderate persistent asthma without complication J45.40 Active 850631737 Problem Elevated liver enzymes R74.8 Active 241393427 Problem Hyperlipidemia LDL goal <100 E78.5 Active 02599116 Problem Hypokalemia E87.6 Active 92003018 Problem Tremor, hereditary, 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 Active 527845070 Problem Abnormal glucose R73.09 Active 791095923 Problem Irritable bowel K58.9 Active 86101659 Problem Major depressive disorder, recurrent episode, moderate F33.1 Active 892436335 Problem Chronic migraine without aura with status migrainosus, not intractable G43.701 Active [id number] ALLERGIES No Information ENCOUNTERS Encounter Location Date Diagnosis [facility] [address] [facility] [id number] [address] May, [facility] [id number] [address] Apr, [facility] [address] [id number] [address] Apr, [facility] [address], [place] [address] 87[address] Mar, [facility] [address], [place] [address] 68[address] Mar, [facility] [address] [address] 8453 Mar, [facility] [address], [place] [address] 4[address] Mar, [facility] [address] [address] 46[address] 14 Feb, 2018 [facility] [id number] [place] [address] 38133- 7935 Feb, [facility] [address], [place] [address] 63[address] 05 Feb, 2018 [facility] [address], [place] [address] 9166 Jan, [facility] [address], [place] [address] Dec, [facility] [id number] [place] [address] 17670- 2834 Dec, Other chronic pain G89.29 ; Pain in right shoulder M25.511 and Liver enzyme elevation R74.8 [facility] [address] [address] 1695 Nov, Other chronic pain G89.29 and Pain in right shoulder M25.511 [facility] [address], [place] [address] 26[address] October, [facility] [address] [address] October, Right shoulder pain, unspecified chronicity M25.511 [facility] [address], [place] [address] 9940 Aug, Elevated liver enzymes R74.8 and Hyperlipidemia LDL goal < 100 E78.5 [facility] [id number] [place] [address] 91990- 9209 Aug, [facility] [id number] [place] [address] 51182- 8803 Jul, [place] [id number] [place] [address] 58060- 1618 Jul, Intractable chronic migraine without aura and with status migrainosus G43.711 ; Fever, unspecified fever cause R50.9 and Elevated liver enzymes R74.8 [place] [id number] [place] [address] 55182- 6882 Jun, Difficulty urinating R39.198 and Moderate persistent asthma with exacerbation J45.41 [place] [id number] [place] [address] 86260- 9590 Jun, [place] [id number] [place] [address] 33790- 0168 Jun, Moderate persistent asthma with exacerbation J45.41 [place] [id number] [place] [address] 27572- 2431 May, Elevated liver enzymes R74.8 and Hyperlipidemia LDL goal < 100 E78.5 [place] [id number] [place] [address] 81606- 0437 May, Elevated lipids E78.5 [place] [id number] [place] [address] 79491- 7777 Apr, Elevated liver enzymes R74.8 [place] [id number] [place] [address] 89630- 4215 Apr, Elevated liver enzymes R74.8 [place] [id number] [place] [address] 42251- 0687 Apr, Superior glenoid labrum lesion of right shoulder, subsequent encounter S43.431D [place] [id number] [place] [address] 42673- 9170 Apr, Hypokalemia E87.6 ; Major depressive disorder, recurrent episode, moderate F33.1 ; Other abnormalities of breathing R06.89 and Dyspnea, unspecified R06.00 [facility] [id number] [place] [address] 33197 -9762 Mar, Moderate persistent asthma without complication J45.40 [facility] [address] 36683- 7251 Mar, Impingement syndrome of right shoulder M75.41 [facility] [id number] [place] [address] 97720- 6462 Jan, [place] [address] 51549- 8887 Jan, Chronic migraine without aura with status migrainosus, not intractable G43.701 ; Essential hypertension I10 ; Irritable bowel K58.9 ; Primary insomnia F51.01 and Hypokalemia E87.6 [facility] [id number] [place] [address] 48199- 0382 Dec, [facility] [address] 56339- 4491 Dec, Pain in right shoulder M25.511 [place] [id number] [place] [address] 79465- 9536 Dec, Essential hypertension I10 [facility] [id number] [place] [address] 12277- 3532 Dec, [facility] [id number] [place] [address] 45304- 5886 Nov, Essential hypertension I10 [place] [address] 08237- 3182 Nov, Pain in right shoulder M25.511 [facility] [address] 00944- 0787 Nov, Pain in right shoulder M25.511 [place] [id number] [place] [address] 90475- 5266 October, [place] [id number] [place] [address] 68811- 8976 October, Pain in right shoulder M25.511 [place] [id number] [place] [address] 25031- 5306 Sep, Arm pain, right M79.601 [place] [address] 17149- 4205 Sep, [place] [id number] [place] [address] 10617- 3834 Sep, Abnormal glucose R73.09 and Elevated lipids E78.5 [place] [id number] [place] [address] 88037- 1203 Sep, Abnormal glucose R73.09 and Elevated lipids E78.5 [place] [id number] [place] [address] 46432- 1365 Aug, [place] [id number] [place] [address] 68867- 4007 Aug, [place] [id number] [place] [address] 04408- 4468 Aug, [place] [id number] [place] [address] 61283- 2872 Aug, 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 ; Hypokalemia E87.6 ; Irritable bowel K58.9 ; Essential hypertension I10 ; Pain in right shoulder M25.511 ; Seizure disorder G40.909 and Screening for lipid disorders Z13.220 [place] [id number] [place] [address] 16320- 9970 28 Jul, 2016 Other chronic pain G89.29 and Pain in right shoulder M25.511 [place] [id number] [place] [address] 24342- 9629 14 Jul, 2016 Biceps muscle strain, right, subsequent encounter S46.111D [facility] [id number] [place] [address] 40356 -2105 Jul, Arm pain, right M79.601 [place] [id number] [place] [address] 25907- 6103 Jun, [place] [address] 27840- 1759 Jun, Acute non-recurrent frontal sinusitis J01.10 [place] [id number] [place] [address] 28693- 3012 May, Generalized abdominal pain R10.84 ; Urinary tract infection without hematuria, site unspecified N39.0 ; Hypokalemia E87.6 ; Essential hypertension I10 ; Screening for lipid disorders Z13.220 ; Seizure R56.9 and Low back pain M54.5 [place] [id number] [place] [address] 18463- 6629 Apr, [facility] [place] [id number] [place] [address] 92152 -8943 Feb, [place] [id number] [place] [address] 39041- 9294 Jan, [place] [id number] [place] [address] 15438- 1485 Dec, 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 ; Hypokalemia E87.6 ; Irritable bowel K58.9 and Nausea R11.0 [facility] [place] [id number] [place] [address] 23384 -0396 Dec, Generalized abdominal pain R10.84 [place] [id number] [place] [address] 48331- 2856 24 Nov, 2015 [facility] [place] [id number] [place] [address] 35435 -7291 14 Aug, 2015 Acute bronchitis J20.9 [place] [id number] [place] [address] 51966- 7528 14 Aug, 2015 [place] [address] 24757- 5110 08 Aug, 2015 Low back pain M54.5 ; Hypokalemia E87.6 ; Chronic migraine without aura with status migrainosus, not intractable G43.701 ; Tremor, hereditary, 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 ; Irritable bowel K58.9 ; Essential hypertension I10 and Seizure R56.9 [place] [address] 83993- 2028 07 Aug, 2015 [place] [address] 29996- 0230 09 Jul, 2015 [place] [address] 88649- 0865 03 Jul, 2015 Low back pain M54.5 ; Hypokalemia E87.6 ; Chronic migraine without aura with status migrainosus, not intractable G43.701 ; Tremor, hereditary, 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 ; Irritable bowel K58.9 ; Essential hypertension I10 and Seizure R56.9 [place] [id number] [place] [address] 14355- 4148 Jun, Hypokalemia E87.6 [place] [id number] [place] [address] 93645- 6505 15 Jun, 2015 ADD (attention deficit disorder) without hyperactivity F90.0 ; Generalized anxiety disorder F41.1 and Major depressive disorder, recurrent episode, moderate F33.1 [place] [id number] [place] [address] 11724- 2805 13 Jun, 2015 Low back pain M54.5 ; Hypokalemia E87.6 ; Chronic migraine without aura with status migrainosus, not intractable G43.701 ; Tremor, hereditary, 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 ; Irritable bowel K58.9 ; Essential hypertension I10 and Seizure R56.9 [place] [address] 52309- 1684 Jun, [place] [id number] [place] [address] 19869- 3942 May, [place] [id number] [place] [address] 79415- 3106 May, Low back pain M54.5 ; Hypokalemia E87.6 ; Chronic migraine without aura with status migrainosus, not intractable G43.701 ; Tremor, hereditary, 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 ; Irritable bowel K58.9 ; Essential hypertension I10 ; Seizure R56.9 and Tinea capitis B35.0 [place] [id number] [place] [address] 96068- 8069 May, Low back pain M54.5 ; Hypokalemia E87.6 ; Chronic migraine without aura with status migrainosus, not intractable G43.701 ; Tremor, hereditary, 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 ; Irritable bowel K58.9 ; Essential hypertension I10 ; Seizure R56.9 ; Otitis media, left H66.92 and Dysuria 788.1 [place] [id number] [place] [address] 97532- 9363 May, Tooth pain K08.8 [place] [id number] [place] [address] 84370- 7857 May, [place] [id number] [place] [address] 12359- 9322 May, Low back pain M54.5 ; Hypokalemia E87.6 ; Chronic migraine without aura with status migrainosus, not intractable G43.701 ; Tremor, hereditary, 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 ; Irritable bowel K58.9 and Essential hypertension I10 [place] [id number] [place] [address] 69033- 0643 Apr, Low back pain M54.5 ; Hypokalemia E87.6 ; Chronic migraine without aura with status migrainosus, not intractable G43.701 ; Tremor, hereditary, 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 and Irritable bowel K58.9 [facility] [id number] [place] [address] 85191- 3911 Apr, Low back pain M54.5 [facility] [id number] [place] [address] 61069- 9406 Mar, [facility] [id number] [place] [address] 70403- 0111 Mar, Irritable bowel syndrome with diarrhea K58.0 [facility] [id number] [place] [address] 95029- 5571 Mar, [facility] [address] 05235- 8382 Feb, [facility] [id number] [place] [address] 27522- 0788 Feb, [facility] [address] 42332- 3426 Feb, Irritable bowel syndrome 564.1 ; Lumbago 724.2 and Cervical pain (neck) 723.1 [place] [id number] [place] [address] 60133- 4070 Dec, Major depressive disorder, recurrent episode, moderate 296.32 and Generalized anxiety disorder 300.02 [facility] [id number] [place] [address] 89961- 4503 Nov, [facility] [id number] [place] [address] 19842- 9537 Nov, Major depressive disorder, recurrent episode, moderate 296.32 [facility] [id number] [place] [address] 05232- 8422 Nov, Constipation 564.00 ; Nausea & vomiting 787.01 and Abdominal pain 789.00 [facility] [id number] [place] [address] 96357- 6796 Nov, [facility] [address] [place] [address]- 1463 October, [facility] [address] [id number] [place] [address]- 5616 October, [facility] [place] [facility] [id number] [address]- 7440 October, [facility] [place] [facility] [id number] [place] [address]- 3066 October, [facility] [place] [facility] [address] [facility] [id number] [place] [address]- 5334 Sep, Dysuria 788.1 [facility] [id number] [place] [address], [place] [address]- 5737 Sep, [facility] [place] [facility] [id number] [place] [address]- 9306 Sep, [facility] [place] [facility] [id number] [place] [address], [place] [address]- 6101 Sep, [facility] [place] [facility] [id number] [place] [address]- 7319 Sep, [facility] [place] [facility] [id number] [place] [address]- 8103 Aug, [facility] [place] [facility] [address] [place] [address]- 1362 Aug, [facility] [place] [facility] [address] [place] [address]- 4822 Aug, [facility] [place] [facility] [address] [facility] [id number] [place] [address]- 6270 Aug, [facility] [place] [facility] [address] [facility] [id number] [place] [address]- 2340 Aug, [facility] [place] [facility] [address] [facility] [id number] [place] [address]- 4656 Aug, [facility] [place] [facility] [id number] [place] [address]- 4943 Aug, [facility] [place] [facility] [address] [id number] [place] [address]- 5793 Aug, [facility] [place] [facility] [address] [id number] [place] [address]- 1058 Aug, [facility] [place] [facility] [address] [id number] [place] [address]- 4661 Aug, [facility] [place] [facility] [address] [id number] [place] [address]- 5976 Jun, [facility] [place] [facility] [address] [id number] [place] [address]- 2190 Jun, [facility] [place] [facility] [address] [id number] [place] [address]- 2373 Jun, [facility] [place] [facility] [address] [id number] [place] [address]- 2590 Jun, [facility] [place] [facility] [address] [id number] [place] [address]- 8690 May, [facility] [place] [facility] [address] [id number] [place] [address]- 9197 May, [facility] [place] [facility] [address] [id number] [place] [address]- 6800 May, [facility] [place] [facility] [address] [id number] [place] [address]- 5229 May, [facility] [place] [facility] [address] [id number], [place] [address]- 4738 May, [facility] [place] [facility] [address] [id number] [place] [address]- 2858 May, [facility] [place] [facility] [address] [id number] [place] [address]- 4326 May, [facility] [place] [facility] [address] [id number] [place] [address]- 0286 May, [facility] [place] [facility] [address] [id number], [place] [address]- 5084 Mar, [facility] [place] [facility] [address] [id number] [place] [address]- 7504 Mar, [facility] [place] [facility] [address] [id number] [place] [address]- 8037 Mar, [facility] [place] [facility] [address] [id number] [place] [address]- 5346 Mar, [facility] [place] [facility] [address] [id number] [place] [address]- 1860 Mar, [facility] [place] [facility] [address] [id number] [place] [address]- 9624 Mar, [facility] [place] [facility] [address] [id number] [place] [address]- 1202 Mar, [facility] [place] [facility] [address] [id number] [place] [address]- 4433 Mar, [facility] [place] [facility] [address] [id number] [place] [address]- 0440 Mar, [facility] [place] [facility] [address] [facility] [id number] [place] [address]- 7293 Mar, [facility] [place] [facility] [address] [facility] [id number] [place] [address]- 9397 Mar, [facility] [place] [facility] [address] [id number] [place] [address]- 8118 Mar, [facility] [place] [facility] [address] [id number], [place] [address]- 1137 Feb, [facility] [place] [facility] [address] [id number] [place] [address]- 3251 24 Feb, 2014 [facility] [place] [facility] [address] [facility] [id number] [place] [address]- 4989 Feb, [facility] [place] [facility] [address] [id number] [place] [address]- 1687 Feb, 2013 [facility] [place] [facility] [address] [id number] [place] [address]- 1969 Feb, [facility] [place] [facility] [address] [id number] [place] [address]- 9634 Feb, [facility] [place] [facility] [address] [id number] [place] [address]- 3546 Jan, [facility] [place] [facility] [address] [id number] [place] [address]- 7997 Jan, [facility] [place] [facility] [address] [id number] [place] [address]- 3674 Jan, [facility] [place] [facility] [address] [id number] [place] [address]- 1813 Jan, [facility] [place] [facility] [address] [id number] [place] [address]- 3894 Jan, [facility] [place] [facility] [address] [id number] [place] [address]- 9758 Jan, [facility] [place] [facility] [address] [id number] [place] [address]- 2924 Jan, [facility] [place] [facility] [address] [id number] [place] [address]- 7357 Jan, [facility] [place] [facility] [address] [id number] [place] [address]- 6938 Dec, [facility] [place] [facility] [address] [id number] [place] [address]- 5395 Dec, [facility] [place] [facility] [address] [id number] [place] [address]- 3410 Dec, [facility] [place] [facility] [address] [id number] [place] [address]- 1341 Dec, [facility] [place] [facility] [address] [id number] [place] [address]- 7790 Dec, [facility] [place] [facility] [address] [id number] [place] [address]- 0632 Dec, [facility] [place] [facility] [address] [id number] [place] [address]- 3867 Dec, [facility] [place] [facility] [address] [id number] [place] [address]- 7172 Dec, [facility] [place] [facility] [address] [id number] [place] [address]- 3798 October, [facility] [place] [facility] [address] [id number] [place] [address]- 6818 October, [facility] [place] [facility] [address] [id number] [place] [address]- 5600 Sep, [facility] [place] [facility] [address] [id number] [place] [address]- 2612 Sep, [facility] [place] [facility] [address] [id number] [place] [address]- 8598 Sep, [facility] [place] [facility] [address] [id number] [place] [address]- 3990 Sep, [facility] [place] [facility] [address] [id number] [place] [address]- 4753 Sep, [facility] [place] [facility] [address] [id number] [place] [address]- 9197 Sep, [facility] [place] [facility] [address] [id number] [place] [address]- 9146 Sep, [facility] [place] [facility] [address] [id number] [place] [address] Sep, [facility] [place] [facility] [address] [id number] [place] [address] Sep, [facility] [place] [facility] [address] [id number] [place] [address] Sep, [facility] [place] [facility] [address] [id number] [place] [address] Sep, [facility] [place] [facility] [address] [id number] [place] [address] Sep, [facility] [place] [facility] [address] [id number] [place] [address] Aug, [facility] [place] [facility] [address] [id number] [place] [address] Aug, [facility] [place] [facility] [address] [id number] [place] [address] Aug, [facility] [place] [facility] [address] [id number] [place] [address] Jun, [facility] [place] [facility] [address] [id number] [place] [address] Jun, [facility] [place] [facility] [address] [id number] [place] [address] Jun, [facility] [place] [facility] [address] [id number] [place] [address] Jun, [facility] [place] [facility] [address] [id number] [place] [address] Jun, [facility] [place] [facility] [address] [id number] [place] [address] Jun, [facility] [place] [facility] [address] [id number] [place] [address] Jun, [facility] [place] [facility] [address] [id number] [place] [address] Jun, [facility] [place] [facility] [address] [id number] [place] [address] Jun, [facility] [place] [facility] [address] [id number] [place] [address] Jun, [facility] [place] [facility] [address] [id number] [place] [address] May, [facility] [place] [facility] [address] [id number] [place] [address] May, [facility] [place] [facility] [address] [id number] [place] [address] May, [facility] [place] [facility] [address] [id number] [place] [address] May, [facility] [place] [facility] [address] [id number] [place] [address] Apr, [facility] [place] [facility] [address] [id number] [place] [address] Apr, [facility] [place] [facility] [address] [id number] [place] [address] Apr, [facility] [place] [facility] [address] [id number] [place] [address] Apr, [facility] [address] [id number] [place] [address] Apr, [facility] [place] [facility] [address] [id number] [place] [address] Apr, [facility] [place] [facility] [address] [id number] [place] [address] Apr, [facility] [place] [facility] [address] [id number] [place] [address] Apr, [facility] [place] [facility] [address] [id number] [place] [address] Mar, [facility] [place] [facility] [address] [id number], [place] [address] Mar, [facility] [place] [facility] [address] [id number] [place] [address] Mar, [facility] [place] [facility] [address] [id number] [place] [address] Mar, [facility] [place] [facility] [address] [id number] [place] [address] Mar, [facility] [place] [facility] [address] [id number] [place] [address] 23 Feb, 2013 [facility] [place] [facility] [address] [id number] [place] [address] 11 Feb, 2013 [facility] [place] [facility] [address] [id number] [place] [address] 05 Feb, 2013 [facility] [place] [facility] [address] [address] [id number] [place] [address] 05 Feb, 2013 [facility] [place] [facility] [address] [id number] [place] [address] 04 Feb, 2013 [facility] [place] [facility] [address] [id number] [place] [address] Jan, [facility] [place] [facility] [address] [id number] [place] [address] Jan, [facility] [place] [facility] [address] [id number] [place] [address] Nov, [facility] [place] [facility] [address] [id number] [place] [address] Nov, [facility] [place] [facility] [address] [id number] [place] [address] Nov, [facility] [place] [facility] [address] [id number] [place] [address] Nov, [facility] [place] [facility] [address] [id number] [place] [address] October, [facility] [place] [facility] [address] [id number] [place] [address] Sep, [facility] [place] [facility] [address] [id number] [place] [address] Aug, [facility] [place] [facility] [address] [id number] [place] [address] Aug, [facility] [place] [facility] [address] [id number] [place] [address] 16 Aug, 2012 [facility] [place] [facility] [address] [id number] [place] [address] Aug, [facility] [address] [id number] [place] [address] Jul, [facility] [place] [facility] [address] [id number] [place] [address] Jun, [facility] [address] [id number] [place] [address] Jun, [facility] [address] [id number] [place] [address] May, [facility] [address] [id number] [place] [address] May, [facility] [address] [id number] [place] [id number] Mar, [facility] [place] [facility] [address] [id number] [place] [address] Mar, [facility] [address] [id number] [place] [address] Mar, [facility] [address] [id number] [place] [address] Mar, [facility] [address] [id number] [place] [address] Mar, [facility] [place] [facility] [address] [id number] [place] [address] Mar, [facility] [address] [id number] [place] [address] Mar, [facility] [place] [facility] [address] [id number] [place] [address] Mar, [facility] [place] [facility] [address] [id number] [place] [address] Mar, [facility] [place] [facility] [address] [id number] [place] [address] Mar, [facility] [place] [facility] [address] [id number] [place] [address] 20 Mar, 2011 [facility] [place] [facility] [address] [id number] [place] [address] Mar, [facility] [place] [facility] [address] [id number] [place] [address] 17 Mar, 2012 [facility] [place] [facility] [address] [id number] [place] [address] 15 Mar, 2012 [facility] [place] [facility] [address] [id number] [place] [address] 15 Mar, 2012 [facility] [place] [facility] [address] [id number] [place] [address] 15 Mar, 2012 [facility] [place] [facility] [address] [id number] [place] [address] 1749 15 Mar, 2012 [facility] [place] [facility] [address] [id number], [place] [address] Mar, [facility] [place] [facility] [address] [id number] [place] [address] Mar, [facility] [place] [facility] [address] [id number], [place] [address] Mar, [facility] [place] [facility] [address] [facility] [id number], [place] [address] Mar, [facility] [place] [facility] [address] [id number], [place] [address] Mar, [facility] [place] [facility] [address] [id number], [place] [address] Mar, [facility] [place] [facility] [address] [id number], [place] [address] 19 Feb, 2012 [facility] [place] [facility] [address] [id number], [place] [address] 18 Feb, 2012 [facility] [place] [facility] [address] [id number], [place] [address] 17 Feb, 2012 [facility] [place] [facility] [address] [id number] [place] [address] 14 Feb, 2011 [facility] [place] [facility] [address] [id number] [place] [address] 14 Feb, 2012 [facility] [place] [facility] [address] [id number] [place] [address] 12 Feb, 2012 [facility] [place] [facility] [address] [id number] [place] [address] 99[address] 10 Feb, 2012 [facility] [place] [facility] [address] [id number] [place] [address] 6[address] 31 Jan, 2012 [facility] [place] [facility] [address] [id number] [place] [address] 30 Jan, 2012 [facility] [place] [facility] [address] [id number] [place] [address] 22 Jan, 2012 [facility] [place] [facility] [address] [id number] [place] [address] 20 Jan, 2012 [facility] [place] [facility] [address] [id number] [place] [address]- 3790 17 Jan, 2012 [facility] [place] [facility] [address] [id number] [place] [address] 1202 17 Jan, 2012 [facility] [place] [facility] [address] [id number] [place] [address]- [address]35 17 Jan, 2012 [facility] [place] [facility] [address] [id number] [place] [address] 0904 16 Jan, 2012 [facility] [place] [facility] [address] [id number] [place] [address]- 268[address] 13 Jan, 2012 [facility] [place] [facility] [address] [id number] [place] [address] 07 Jan, 2012 [facility] [place] [facility] [address] [id number] [place] [address] 4478 26 Dec, 2011 [facility] [place] [facility] [address] [id number] [place] [address] 24 Dec, 2011 [facility] [place] [facility] [address] [id number] [place] [address]- [address] 23 Dec, 2011 [facility] [place] [facility] [address] [id number] [place] [address] 2546 19 Dec, 2011 [facility] [place] [facility] [address] [id number] [place] [address] 18 Dec, 2011 [facility] [place] [facility] [address] [id number] [place] [address] 2546 17 Dec, 2011 [facility] [place] [facility] [address] [id number] [place] [address]- 0666 16 Dec, 2011 [facility] [place] [facility] [address] [id number] [place] [address]- 9086 14 Dec, 2011 [facility] [place] [facility] [address] [id number] [place] [address] Dec, [facility] [place] [facility] [address] [id number] [place] [address] Dec, [facility] [place] [facility] [address] [id number] [place] [address]- [address]161 Dec, [facility] [place] [facility] [address] [id number] [place] [address]- 6166 Nov, [facility] [place] [facility] [address] [id number] [place] [address]- 2533 Nov, [facility] [place] [facility] [address] [id number] [place] [address] 2545 Nov, [facility] [place] [facility] [address] [id number] [place] [address]- 1286 Nov, [facility] [place] [facility] [address] [id number] [place] [address] 2546 Nov, [facility] [place] [facility] [address] [id number] [place] [address]- 36[address] Nov, [facility] [address] [facility] [id number], [place] [address] Nov, [facility] [address] [facility] [id number], [place] [address] Nov, [facility] [address] [facility] [id number], [place] [address] Nov, [facility] [address] [facility] [id number], [place] [address] Nov, [facility] [address] [facility] [id number], [place] [address] October, IMMUNIZATIONS No Known Immunizations SOCIAL HISTORY Never Assessed REASON FOR VISIT Refill Request PLAN OF CARE VITAL SIGNS MEDICATIONS Medication Instructions Dosage Frequency Start Date End Date Duration Status Dicyclomine HCl 20 mg Orally Four times a day-Must have appt for further refills 1 tablet 30 Active RESULTS No Results PROCEDURES No Known [...]
--- OUTSIDE RECORDS SUMMARY | 2018-08-12 15:07 | XMS REPORT ---
Author Author SCARLET ALVES Organization [facility] Address [address] [place] [address] Care Team Providers Care Contracting Support Specialist Name Role Phone SCARLET ALVES Unavailable PROBLEMS Type Condition ICD9-CM Code WPA74-VG Code Onset Dates Condition Status SNOMED Code Problem Essential hypertension I10 Active 74907217 Problem Other chronic pain G89.29 Active 72998921 Problem 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 Active 10471129 Problem Other chronic pain G89.29 Active 43151611 Problem Intractable chronic migraine without aura and with status migrainosus G43.711 Active 549315973 Problem Primary insomnia F51.01 Active 1968410 Problem Seizure disorder G40.909 Active 102910828 Problem Moderate persistent asthma with exacerbation J45.41 Active 965236595 Problem Moderate persistent asthma without complication J45.40 Active 314306181 Problem Elevated liver enzymes R74.8 Active 819228923 Problem Hyperlipidemia LDL goal <100 E78.5 Active 71039041 Problem Hypokalemia E87.6 Active 49151912 Problem Tremor, hereditary, 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 Active 584592782 Problem Abnormal glucose R73.09 Active 722631409 Problem Irritable bowel K58.9 Active 59998983 Problem Major depressive disorder, recurrent episode, moderate F33.1 Active 091982280 Problem Chronic migraine without aura with status migrainosus, not intractable G43.701 Active 546040478 ALLERGIES Substance Reaction Event Type Date Status Morphine Sulfate rebound headaches Drug Allergy Apr, Active Gabapentin coma Drug Allergy Apr, Active Baclofen anaphylaxis Drug Allergy Apr, Active Amoxicillin itching Drug Allergy Apr, Active NSAIDS Hallucinations Non Drug Allergy Apr, Active ENCOUNTERS Encounter Location Date Diagnosis [facility] [address] [facility] [id number] [address] May, [facility] [address] [facility] [id number], [place] [address] Apr, Pain in right shoulder M25.511 [facility] [address] [id number] [address] Apr, [facility] [address] [id number] [address] Mar, [facility] [address] [address] 3[address] Mar, [facility] [id number] [place] [address] 58863- 2485 Mar, [facility] [id number] [place] [address] 82340- 4488 Mar, [facility] [id number] [place] [address] 59822- 8508 Feb, [facility] [id number] [place] [address] 97255- 6562 Feb, [facility] [id number] [place] [address] 37063- 2979 Feb, [facility] [id number] [place] [address] 33149- 4178 Jan, [facility] [address] [address] 8269 Dec, [facility] [id number] [place] [address] 03532- 8608 Dec, Other chronic pain G89.29 ; Pain in right shoulder M25.511 and Liver enzyme elevation R74.8 [facility] [address] [address] 4[address] Nov, Other chronic pain G89.29 and Pain in right shoulder M25.511 [facility] [address] [address] 3862 October, [facility] [id number] [place] [address] 96691 -9414 October, Right shoulder pain, unspecified chronicity M25.511 [facility] [id number] [place] [address] 36442- 6223 Aug, Elevated liver enzymes R74.8 and Hyperlipidemia LDL goal < 100 E78.5 [facility] [id number] [place] [address] 48320- 6895 Aug, [facility] [id number] [place] [address] 09120- 6759 Jul, [facility] [id number] [place] [address] 13705- 7684 Jul, Intractable chronic migraine without aura and with status migrainosus G43.711 ; Fever, unspecified fever cause R50.9 and Elevated liver enzymes R74.8 [place] [id number] [place] [address] 42175- 6242 Jun, Difficulty urinating R39.198 and Moderate persistent asthma with exacerbation J45.41 [facility] [id number] [place] [address] 37518- 6942 Jun, [facility] [id number] [place] [address] 09757- 6265 Jun, Moderate persistent asthma with exacerbation J45.41 [facility] [id number] [place] [address] 76949- 5704 May, Elevated liver enzymes R74.8 and Hyperlipidemia LDL goal < 100 E78.5 [facility] [id number] [place] [address] 26827- 4481 May, Elevated lipids E78.5 [place] [id number] [place] [address] 13469- 0488 Apr, Elevated liver enzymes R74.8 [facility] [id number] [place] [address] 14126- 4469 Apr, Elevated liver enzymes R74.8 [facility] [id number] [address] 5709 Apr, Superior glenoid labrum lesion of right shoulder, subsequent encounter S43.431D [place] [address] 92798- 7558 Apr, Hypokalemia E87.6 ; Major depressive disorder, recurrent episode, moderate F33.1 ; Other abnormalities of breathing R06.89 and Dyspnea, unspecified R06.00 [facility] [address] [address]14 [address]1971 Mar, Moderate persistent asthma without complication J45.40 [place] [address] 92833- 9008 Mar, Impingement syndrome of right shoulder M75.41 [place] [address] 77088- 9404 Jan, [place] [address] 89974- 0546 Jan, Chronic migraine without aura with status migrainosus, not intractable G43.701 ; Essential hypertension I10 ; Irritable bowel K58.9 ; Primary insomnia F51.01 and Hypokalemia E87.6 [facility] [id number] [place] [address] 76743- 3475 Dec, [place] [address] 15373- 3444 Dec, Essential hypertension I10 [place] [id number] [place] [address] 37838- 7354 Dec, [place] [address] 90816- 1261 Dec, Pain in right shoulder M25.511 [place] [id number] [place] [address] 48123- 2423 Nov, Essential hypertension I10 [place] [address] 88025- 4299 14 Nov, 2016 Pain in right shoulder M25.511 [facility] [id number] [place] [address] 00094- 9240 Nov, Pain in right shoulder M25.511 [facility] [id number] [place] [address] 65087- 2714 October, [facility] [id number] [place] [address] 52455- 1430 October, Pain in right shoulder M25.511 [facility] [id number] [place] [address] 38591- 1863 Sep, Arm pain, right M79.601 [facility] [id number] [place] [address] 02471- 3426 Sep, [facility] [id number] [place] [address] 57421- 5713 Sep, Abnormal glucose R73.09 and Elevated lipids E78.5 [place] [id number] [place] [address] 42957- 8836 Sep, Abnormal glucose R73.09 and Elevated lipids E78.5 [facility] [id number] [place] [address] 64474- 7815 Aug, [facility] [id number] [place] [address] 72649- 0796 Aug, [facility] [id number] [place] [address] 69470- 1077 Aug, [facility] [id number] [place] [address] 96064- 0586 Aug, 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 ; Hypokalemia E87.6 ; Irritable bowel K58.9 ; Essential hypertension I10 ; Pain in right shoulder M25.511 ; Seizure disorder G40.909 and Screening for lipid disorders Z13.220 [facility] [id number] [place] [address] 31488- 1988 28 Jul, 2016 Other chronic pain G89.29 and Pain in right shoulder M25.511 [place] [id number] [place] [address] 23449- 1627 14 Jul, 2016 Biceps muscle strain, right, subsequent encounter S46.111D [facility] [place] [id number] [place] [address] 33010 -6504 08 Jul, 2016 Arm pain, right M79.601 [place] [address] 28626- 3516 Jun, [place] [address] 70871- 5814 Jun, Acute non-recurrent frontal sinusitis J01.10 [place] [address] 57617- 2987 May, Generalized abdominal pain R10.84 ; Urinary tract infection without hematuria, site unspecified N39.0 ; Hypokalemia E87.6 ; Essential hypertension I10 ; Screening for lipid disorders Z13.220 ; Seizure R56.9 and Low back pain M54.5 [place] [id number] [place] [address] 72526- 5888 Apr, [facility] [id number] [place] [address] 84188 -4313 Feb, [place] [id number] [place] [address] 01974- 2189 Jan, [place] [id number] [place] [address] 99742- 8073 Dec, 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 ; Hypokalemia E87.6 ; Irritable bowel K58.9 and Nausea R11.0 [facility] [id number] [place] [address] 99025 -6118 Dec, Generalized abdominal pain R10.84 [place] [id number] [place] [address] 04490- 5982 Nov, [facility] [id number] [place] [address] 54715 -4231 Aug, Acute bronchitis J20.9 [facility] [id number] [place] [address] 89395- 7356 Aug, [place] [id number] [place] [address] 36863- 9937 Aug, Low back pain M54.5 ; Hypokalemia E87.6 ; Chronic migraine without aura with status migrainosus, not intractable G43.701 ; Tremor, hereditary, 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 ; Irritable bowel K58.9 ; Essential hypertension I10 and Seizure R56.9 [facility] [id number] [place] [address] 75625- 4478 Aug, [place] [id number] [place] [address] 07637- 8226 09 Jul, 2015 [place] [id number] [place] [address] 83095- 4562 03 Jul, 2015 Low back pain M54.5 ; Hypokalemia E87.6 ; Chronic migraine without aura with status migrainosus, not intractable G43.701 ; Tremor, hereditary, 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 ; Irritable bowel K58.9 ; Essential hypertension I10 and Seizure R56.9 [place] [id number] [place] [address] 37827- 5004 Jun, Hypokalemia E87.6 [place] [id number] [place] [address] 96987- 4931 Jun, ADD (attention deficit disorder) without hyperactivity F90.0 ; Generalized anxiety disorder F41.1 and Major depressive disorder, recurrent episode, moderate F33.1 [place] [address] [place] [address] 52221- 0106 Jun, Low back pain M54.5 ; Hypokalemia E87.6 ; Chronic migraine without aura with status migrainosus, not intractable G43.701 ; Tremor, hereditary, 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 ; Irritable bowel K58.9 ; Essential hypertension I10 and Seizure R56.9 [place] [id number] [place] [address] 68304- 0242 Jun, [place] [id number] [place] [address] 86885- 4483 May, [place] [address] 99885- 2621 May, Low back pain M54.5 ; Hypokalemia E87.6 ; Chronic migraine without aura with status migrainosus, not intractable G43.701 ; Tremor, hereditary, 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 ; Irritable bowel K58.9 ; Essential hypertension I10 ; Seizure R56.9 and Tinea capitis B35.0 [place] [address] 85271- 4298 May, Low back pain M54.5 ; Hypokalemia E87.6 ; Chronic migraine without aura with status migrainosus, not intractable G43.701 ; Tremor, hereditary, 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 ; Irritable bowel K58.9 ; Essential hypertension I10 ; Seizure R56.9 ; Otitis media, left H66.92 and Dysuria 788.1 [place] [id number] [place] [address] 61283- 3105 May, Tooth pain K08.8 [place] [id number] [place] [address] 67642- 2210 May, [place] [id number] [place] [address] 93807- 2831 May, Low back pain M54.5 ; Hypokalemia E87.6 ; Chronic migraine without aura with status migrainosus, not intractable G43.701 ; Tremor, hereditary, 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 ; Irritable bowel K58.9 and Essential hypertension I10 [place] [address] [place] [address]- 3313 Apr, Low back pain M54.5 ; Hypokalemia E87.6 ; Chronic migraine without aura with status migrainosus, not intractable G43.701 ; Tremor, hereditary, 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 and Irritable bowel K58.9 [facility] [id number] [place] [address] 76201- 5390 Apr, Low back pain M54.5 [place] [address] 72310- 1119 Mar, [place] [address] 55583- 2882 Mar, Irritable bowel syndrome with diarrhea K58.0 [place] [address] 95355- 7375 Mar, [place] [address] 16846- 3629 Feb, [place] [id number] [place] [address] 08404- 0474 08 Feb, 2015 [place] [address] 53100- 4788 Feb, Irritable bowel syndrome 564.1 ; Lumbago 724.2 and Cervical pain (neck) 723.1 [place] [id number] [place] [address] 25035- 8117 Dec, Major depressive disorder, recurrent episode, moderate 296.32 and Generalized anxiety disorder 300.02 [facility] [id number] [place] [address] 06017- 4784 Nov, [place] [address] 87213- 2473 Nov, Major depressive disorder, recurrent episode, moderate 296.32 [place] [id number] [place] [address] 32323- 0698 08 Nov, 2014 Constipation 564.00 ; Nausea & vomiting 787.01 and Abdominal pain 789.00 [facility] [address] [address]- 4899 Nov, [facility] [id number] [place] [address] 81966- 4432 October, [facility] [id number] [place] [address] 06426- 9029 October, [facility] [id number] [place] [address] 24203- 5134 October, [facility] [id number] [place] [address] 815591- 6958 October, [facility] [id number] [place] [address] 19011- 9833 Sep, [facility] [id number] [place] [address] 53224- 7927 Sep, Dysuria 788.1 [facility] [id number] [place] [address] 92053- 3134 Sep, [facility] [id number] [place] [address] 08356- 7381 Sep, [facility] [id number] [place] [address] 37794- 5664 Sep, [facility] [id number] [place] [address] 88794- 9559 Aug, [facility] [id number] [place] [address] 77385- 7977 Aug, [facility] [id number] [place] [address] 731350- 8047 Aug, [facility] [id number] 9250 Aug, [facility] [id number] [place] [address] 577034- 3949 Aug, [facility] [place] [facility] [address] [id number] [place] [address]- 9266 18 Aug, 2014 [facility] [place] [facility] [address] [id number] [place] [address]- 4373 Aug, [facility] [place] [facility] [address] [id number] [place] [address]- 0876 Aug, [facility] [place] [facility] [address] [id number] [place] [address] 2546 Aug, [facility] [place] [facility] [address] [id number] [place] [address]- 3723 Aug, [facility] [place] [facility] [address] [id number] [place] [address]- 6658 Jun, [facility] [place] [facility] [address] [id number] [place] [address]- 4903 Jun, [facility] [place] [facility] [address] [id number] [place] [address]- 8347 Jun, [facility] [place] [facility] [address] [id number] [place] [address]- 2613 Jun, [facility] [place] [facility] [address] [id number] [place] [address]- 6498 May, [facility] [place] [facility] [address] [id number] [place] [address]- 4858 May, [facility] [place] [facility] [address] [id number] [place] [address]- 8594 May, [facility] [place] [facility] [address] [id number] [place] [address]- 6012 May, [facility] [place] [facility] [address] [id number] [place] [address]- 0956 May, [facility] [place] [facility] [address] [id number] [place] [address]- 0318 May, [facility] [place] [facility] [address] [id number] [address]- 9368 May, [facility] [place] [facility] [address] [id number] [place] [address]- 8618 May, [facility] [place] [facility] [address] [id number] [place] 7070 Mar, [facility] [place] [facility] [address] [id number] [place] [address]- 2952 Mar, [facility] [place] [facility] [address] [id number] [place] [address]- 3110 Mar, [facility] [place] [facility] [address] [id number] [place] [address]- 3116 Mar, [facility] [place] [facility] [address] [id number] [place] [address]- 6371 Mar, [facility] [place] [facility] [address] [id number] [place] [address]- 4235 Mar, [facility] [place] [facility] [address] [id number] [place] [address]- 3343 Mar, [facility] [place] [facility] [address] [id number] [place] [address]- 4495 Mar, [facility] [place] [facility] [address] [id number] [place] [address]- 8835 Mar, [facility] [place] [facility] [address] [id number], [place] [address]- 7173 Mar, [facility] [place] [facility] [address] [id number], [place] [address]- 6657 Mar, [facility] [place] [facility] [address] [id number] [place] 9029 Mar, [facility] [place] [facility] [address] [id number] [place] [address]- 8574 Feb, [facility] [place] [facility] [address] [id number] [place] [address]- 9464 Feb, [facility] [place] [facility] [address] [id number] [place] [address]- 7959 Feb, [facility] [place] [facility] [address] [id number] [place] [address]- 0754 Feb, [facility] [place] [facility] [address] [id number] [place] [address]- 0756 Feb, [facility] [place] [facility] [address] [id number] [place] [address]- 1736 Feb, [facility] [place] [facility] [address] [id number] [place] [address]- 6248 Jan, [facility] [place] [facility] [address] [id number] [place] [address]- 1839 Jan, [facility] [place] [facility] [address] [id number] [place] [address]- 7242 Jan, [facility] [place] [facility] [address] [id number] [place] [address]- 4264 Jan, [facility] [place] [facility] [address] [id number] [place] [address]- 6738 Jan, [facility] [place] [facility] [address] [id number] [place] [address]- 3794 Jan, [facility] [place] [facility] [address] [id number] [place] [address]- 1469 Jan, [facility] [place] [facility] [address] [id number] [place] [address]- 3313 Jan, [facility] [place] [facility] [address] [id number] [place] [address]- 9842 Dec, [facility] [place] [facility] [address] [id number] [place] [address]- 6949 Dec, [facility] [place] [facility] [address] [id number] [place] [address]- 3486 Dec, [facility] [place] [facility] [address] [id number] [place] [address]- 3861 Dec, [facility] [place] [facility] [address] [id number] [place] [address] Dec, [facility] [place] [facility] [address] [id number] [place] [address] Dec, [facility] [place] [facility] [address] [id number] [place] [address] Dec, [facility] [place] [facility] [address] [id number] [place] [address] Dec, [facility] [place] [facility] [address] [id number] [place] [address] October, [facility] [place] [facility] [address] [id number] [place] [address] October, [facility] [place] [facility] [address] [id number] [place] [address] Sep, [facility] [place] [facility] [address] [id number] [place] [address] Sep, [facility] [place] [facility] [address] [id number] [place] [address] Sep, [facility] [place] [facility] [address] [id number] [place] [address] Sep, [facility] [place] [facility] [address] [id number] [place] [address]- [address] Sep, [facility] [place] [facility] [address] [id number] [place] [address]- [address] Sep, [facility] [place] [facility] [address] [id number] [place] [address]- [address] Sep, [facility] [place] [facility] [address] [id number] [place] [address] Sep, [facility] [place] [facility] [address] [id number] [place] [address]- [address] Sep, [facility] [place] [facility] [address] [id number] [place] [address] Sep, [facility] [place] [facility] [address] [id number] [place] [address] Sep, [facility] [place] [facility] [address] [id number] [place] [address]- [address] Sep, [facility] [place] [facility] [address] [id number] [place] [address]- [address] Aug, [facility] [place] [facility] [address] [id number] [place] [address] Aug, [facility] [place] [facility] [address] [id number] [place] [address] Aug, [facility] [place] [facility] [address] [id number] [place] [address] Jun, [facility] [place] [facility] [address] [id number] [place] [address] Jun, [facility] [place] [facility] [address] [id number] [place] [address] Jun, [facility] [place] [facility] [address] [id number] [place] [address] Jun, [facility] [place] [facility] [address] [id number] [place] [address]- [address] Jun, [facility] [place] [facility] [address] [id number] [place] [address]- [address] Jun, [facility] [place] [facility] [address] [id number] [place] [address]- [address] Jun, [facility] [place] [facility] [address] [id number] [place] [address]- [address] Jun, [facility] [place] [facility] [address] [id number] [place] [address] Jun, [facility] [place] [facility] [address] [id number] [place] [address] Jun, [facility] [place] [facility] [address] [id number] [place] [address]- [address] May, [facility] [place] [facility] [address] [id number] [place] [address] May, [facility] [place] [facility] [address] [id number] [place] [address] May, [facility] [place] [facility] [address] [id number] [place] [address] May, [facility] [place] [facility] [address] [id number] [place] [address] Apr, [facility] [place] [facility] [address] [id number] [place] [address] Apr, [facility] [place] [facility] [address] [id number] [place] [address] Apr, [facility] [place] [facility] [address] [id number] [place] [address] Apr, [facility] [place] [facility] [address] [id number] [place] [address] Apr, [facility] [place] [facility] [address] [id number] [place] [address] Apr, [facility] [place] [facility] [address] [id number] [place] [address] Apr, [facility] [place] [facility] [address] [id number] [place] [address] Apr, [facility] [place] [facility] [address] [id number] [place] [address]269 Mar, [facility] [place] [facility] [address] [id number] [place] [address] Mar, [facility] [place] [facility] [address] [id number] [place] [address] Mar, [facility] [place] [facility] [address] [id number] [place] [address] Mar, [facility] [place] [facility] [address] [id number] [place] [address] Mar, [facility] [place] [facility] [address] [id number] [place] [address]165 Feb, [facility] [place] [facility] [address] [id number] [place] [address] Feb, [facility] [place] [facility] [address] [id number] [place] [address] Feb, [facility] [place] [facility] [address] [id number] [place] [address]100 Feb, [facility] [place] [facility] [address] [id number] [place] [address] 8369 Feb, [facility] [place] [facility] [address] [id number] [place] [address] Jan, [facility] [place] [facility] [address] [id number] [place] [address] 8862 Jan, [facility] [place] [facility] [address] [id number] [place] [address]120 Nov, [facility] [place] [facility] [address] [id number] [place] [address]35 Nov, [facility] [place] [facility] [address] [id number], [place] [address] Nov, [facility] [place] [facility] [address] [id number], [place] [address] Nov, [facility] [place] [facility] [address] [id number] [place] [address] 9584 October, [facility] [place] [facility] [address] [id number] [place] [address] Sep, [facility] [place] [facility] [address] [id number] [place] [address] Aug, [facility] [place] [facility] [address] [id number] [place] [address] 289[address] Aug, [facility] [address] [id number] [place] [address]757 Aug, [facility] [place] [facility] [address] [id number] [place] [address] 2546 Aug, [facility] [address] [id number] [place] [address] Jul, [facility] [place] [facility] [address] [id number] [place] [address] Jun, [facility] [place] [facility] [address] [id number] [place] [address] Jun, [facility] [place] [facility] [address] [id number] [place] [address]876 May, [facility] [place] [facility] [address] [id number] [place] [address] May, [facility] [address] [id number] [place] [id number] Mar, [facility] [place] [facility] [address] [id number] [place] Mar, [facility] [address] [id number] [place] [address] Mar, [facility] [place] [facility] [address] [id number] [place] [address] 0689 Mar, [facility] [place] [facility] [address] [id number] [place] [address]- 3974 Mar, [facility] [place] [facility] [address] [id number] [place] [address] 7605 Mar, [facility] [place] [facility] [address] [id number] [place] [address] Mar, [facility] [place] [facility] [address] [id number] [place] [address] Mar, [facility] [place] [facility] [address] [id number] [place] [address]93 Mar, 2011 [facility] [place] [facility] [address] [id number] [place] [address] 3975 Mar, 2011 [facility] [place] [facility] [address] [id number] [place] [address] 1292 Mar, 2011 [facility] [place] [facility] [address] [id number] [place] [address] 6175 Mar, 2011 [facility] [place] [facility] [address] [id number] [place] [address]231 Mar, 2011 [facility] [place] [facility] [address] [id number] [place] [address]- 9136 Mar, 2011 [facility] [place] [facility] [address] [id number] [place] [address]- 9351 Mar, 2011 [facility] [place] [facility] [address] [id number] [place] [address] 7538 Mar, [facility] [place] [facility] [address] [id number] [place] [address]- 4761 Mar, [facility] [place] [facility] [address] [id number], [place] [address] Mar, [facility] [place] [facility] [address] [id number] [place] [address]- 4717 Mar, [facility] [place] [facility] [address] [id number], [place] [address] Mar, [facility] [place] [facility] [address] [id number] [place] [address]- 0250 Mar, [facility] [place] [facility] [address] [id number] [place] [address]- 5145 Mar, [facility] [place] [facility] [address] [id number] [address] Mar, [facility] [place] [facility] [address] [id number], [place] [address] 19 Sep, 2011 [facility] [place] [facility] [address] [id number] [place] [address] 2546 18 Sep, 2011 [facility] [place] [facility] [address] [id number] [place] [address] 2546 17 Feb, 2011 [facility] [place] [facility] [address] [id number] [place] [address] 2546 14 Sep, 2011 [facility] [place] [facility] [address] [id number] [place] [address] 2546 14 Sep, 2011 [facility] [place] [facility] [address] [id number] [place] [address]- 0987 12 Feb, 2011 [facility] [place] [facility] [address] [id number] [place] [address]- 8534 10 Feb, 2012 [facility] [place] [facility] [address] [id number] [place] [address]- 4740 31 Jan, 2012 [facility] [place] [facility] [address] [id number] [place] [address]- 1039 30 Jan, 2012 [facility] [place] [facility] [address] [id number] [place] [address]- 1759 22 Jan, 2012 [facility] [place] [facility] [address] [id number] [place] [address]- 3092 20 Jan, 2012 [facility] [place] [facility] [address] [id number] [place] [address]- 0719 17 Jan, 2012 [facility] [place] [facility] [address] [id number] [place] [address]- 5488 17 Jan, 2012 [facility] [place] [facility] [address] [id number] [place] [address]- 8958 17 Jan, 2012 [facility] [place] [facility] [address] [id number] [place] [address]- 8065 16 Jan, 2012 [facility] [place] [facility] [address] [id number] [place] [address]- [address] 13 Jan, 2012 [facility] [place] [facility] [address] [id number] [place] [address]- 9097 07 Jan, 2012 [facility] [place] [facility] [address] [id number] [place] [address]- 8700 26 Dec, 2011 [facility] [place] [facility] [address] [id number] [place] [address]- 0426 Dec, [facility] [address] [id number] [place] [address]- 6886 Dec, [facility] [place] [facility] [address] [id number] [place] [address]- 1161 Dec, [facility] [address] [id number] [place] [address]- 1459 18 Dec, 2011 [facility] [place] [facility] [address] [id number] [place] [address]- 3891 17 Dec, 2011 [facility] [address] [id number] [place] [address]- 7785 16 Dec, 2011 [facility] [address] [id number] [place] [address]- 8523 14 Dec, 2011 [facility] [place] [facility] [address] [id number] [place] [address]- 4512 Dec, [facility] [address] [id number] [place] [address]- 9491 Dec, [facility] [place] [facility] [address] [id number] [place] [address]- 6417 Dec, [facility] [place] [facility] [address] [id number] [place] [address] 2545 Nov, [facility] [place] [facility] [address] [id number] [place] [address]- 9295 Nov, [facility] [place] [facility] [address] [id number] [place] [address]- 5916 Nov, [facility] [place] [facility] [address] [id number] [place] [address]- 3585 Nov, [facility] [address] [facility] [id number], [place] [address] Nov, [facility] [address] [id number], [place] [address] Nov, [facility] [address] [id number], [place] [address]- [address]100 Nov, [facility] [id number], [place] [address]- [address] Nov, [facility] [address] [id number], [place] [address]- 2449 Nov, [facility] [id number], [place] [address] Nov, [facility] [address] [id number], [place] [address]- [address] October, IMMUNIZATIONS No Known Immunizations SOCIAL HISTORY Never Assessed REASON FOR VISIT shoulder injection -right shoulder -Horacio ODELL PLAN OF CARE Activity Details Future/Pending Procedure JOINT INJECTION-LARGE JOINT VITAL SIGNS Height 65 in 2018-04-22 Weight 182 lbs 2018-04-22 Temperature 98.3 degrees Fahrenheit 2018-04-22 Heart Rate 99 bpm 2018-04-22 Respiratory Rate 20 2018-04-22 BMI 30.28 kg/m2 2018-04-22 Blood pressure systolic 128 mmHg 2018-04-22 Blood pressure diastolic 70 mmHg 2018-04-22 MEDICATIONS Medication Instructions Dosage Frequency Start Date End Date Duration Status Amlodipine Besylate 2.5 MG Orally Once a day 1 tablet 24h Jan, Active Sumatriptan Succinate 25 MG 1 tablet as needed at onset of headache, may repeat once in 2 hours if needed Jul, Not-Taking Albuterol Sulfate 108 (90 Base) mcg/act inhale 2 puffs by inhalation route every 4-6 hours as neededPRNcough or wheezing Nov, Active Dicyclomine HCl 20 mg Orally Four times a day-Must have appt for further refills 1 tablet 30 Active Omeprazole 40 mg Orally Once a day 1 capsule 24h May, Not- Taking Promethazine-Codeine 6.25-10 MG/5ML Orally at hs prn 5 ml as needed Not-Taking Pravastatin Sodium 20 mg Orally Once a day 1 tablet 24h May, Not-Taking Propranolol HCl 80MG Orally Twice a day 1 tablet 12h Active Zanaflex 4 mg Orally 2 times a day 1 tablet as needed 12h 30 Active Microspacer - by inhalation route twice a day with inhaler as directed Jun, Not-Taking Amitriptyline HCl 10MG Orally Once a day 1 tablet at hs 24h Active Qvar 40 MCG/ACT Inhalation Twice a day with spacer device 2 puffs Jun Not-Taking Zofran 8 MG Orally 3 times a day 1 tablet as needed 8h 10 days Not- Taking RESULTS No Results PROCEDURES Procedure Date Ordered Result Body Site DRAIN/INJECT, JOINT/BURSA Apr 22, 2018 INSTRUCTIONS MEDICATIONS ADMINISTERED No Known Medications [...]
--- OUTSIDE RECORDS SUMMARY | 2018-08-12 15:08 | XMS REPORT ---
Author Author SCARLET ALVES Organization [facility] Address [address] [place] [address] Care Team Providers Care House Repairer Name Role Phone SCARLET ALVES Unavailable PROBLEMS Type Condition ICD9-CM Code [id number] Code Onset Dates Condition Status SNOMED Code Problem Essential hypertension I10 Active 02938233 Problem Other chronic pain G89.29 Active 55662696 Problem 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 Active 70298476 Problem Other chronic pain G89.29 Active 59379583 Problem Intractable chronic migraine without aura and with status migrainosus G43.711 Active 614064820 Problem Primary insomnia F51.01 Active 4544306 Problem Seizure disorder G40.909 Active 185123575 Problem Moderate persistent asthma with exacerbation J45.41 Active 786025977 Problem Moderate persistent asthma without complication J45.40 Active 782358939 Problem Elevated liver enzymes R74.8 Active 920548195 Problem Hyperlipidemia LDL goal <100 E78.5 Active 68079853 Problem Hypokalemia E87.6 Active 68635225 Problem Tremor, hereditary, 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 Active 441087697 Problem Abnormal glucose R73.09 Active 095808577 Problem Irritable bowel K58.9 Active 46804690 Problem Major depressive disorder, recurrent episode, moderate F33.1 Active 930848640 Problem Chronic migraine without aura with status migrainosus, not intractable G43.701 Active [id number] ALLERGIES No Information ENCOUNTERS Encounter Location Date Diagnosis [facility] [address] [facility] [id number] [address] May, [facility] [address] [address] Apr, [facility] [address] [id number] [address] Mar, [facility] [address], [place] [address] Mar, [facility] [address], [place] [address] 3[address] Mar, [facility] [address] [address] 245[address] Mar, [facility] [address] [address] 14 Feb, 2018 [facility] [id number] [place] [address] 82594- 5987 Feb, [facility] [id number] [place] [address] 89850- 5552 05 Feb, 2018 [facility] [id number] [place] [address] 86038- 8079 Jan, [facility] [id number] [place] [address] 37833- 2828 Dec, [facility] [id number] [place] [address] 20639- 7358 Dec, Other chronic pain G89.29 ; Pain in right shoulder M25.511 and Liver enzyme elevation R74.8 [facility] [address] [address] Nov, Other chronic pain G89.29 and Pain in right shoulder M25.511 [facility] [address] [address] October, [facility] [address] [address] October, Right shoulder pain, unspecified chronicity M25.511 [facility] [address], [place] [address] 6189 Aug, Elevated liver enzymes R74.8 and Hyperlipidemia LDL goal < 100 E78.5 [facility] [address] [address] Aug, [place] [id number] [place] [address] 69734- 1797 Jul, [place] [address] [address]61- [address]686 Jul, Intractable chronic migraine without aura and with status migrainosus G43.711 ; Fever, unspecified fever cause R50.9 and Elevated liver enzymes R74.8 [place] [address] 60676- 9311 Jun, Difficulty urinating R39.198 and Moderate persistent asthma with exacerbation J45.41 [place] [address] 68340- 8369 Jun, [place] [address] 66141- 6325 Jun, Moderate persistent asthma with exacerbation J45.41 [place] [address] 22681- 5114 May, Elevated liver enzymes R74.8 and Hyperlipidemia LDL goal < [address] [address]253- 8436 May, Elevated lipids E78.5 [place] [id number] [place] [address] 02929- 0110 Apr, Elevated liver enzymes R74.8 [place] [id number] [place] [address] 33158- 2186 Apr, Elevated liver enzymes R74.8 [place] [id number] [place] [address] 01249- 3619 Apr, Superior glenoid labrum lesion of right shoulder, subsequent encounter S43.431D [place] [id number] [place] [address] 94669- 4168 Apr, Hypokalemia E87.6 ; Major depressive disorder, recurrent episode, moderate F33.1 ; Other abnormalities of breathing R06.89 and Dyspnea, unspecified R06.00 [facility] [id number] [place] [address] 42413 -3048 Mar, Moderate persistent asthma without complication J45.40 [facility] [id number] [place] [address] 79859- 2422 Mar, Impingement syndrome of right shoulder M75.41 [facility] [id number] [place] [address] 82149- 0916 Jan, [place] [id number] [place] [address] 33515- 1026 Jan, Chronic migraine without aura with status migrainosus, not intractable G43.701 ; Essential hypertension I10 ; Irritable bowel K58.9 ; Primary insomnia F51.01 and Hypokalemia E87.6 [place] [id number] [place] [address] 85153- 7116 Dec, [place] [id number] [place] [address] 09445- 9124 Dec, Pain in right shoulder M25.511 [place] [id number] [place] [address] 82739- 0404 Dec, Essential hypertension I10 [place] [id number] [place] [address] 32204- 6833 Dec, [place] [id number] [place] [address] 72165- 6662 Nov, Essential hypertension I10 [place] [id number] [place] [address] 12403- 8337 Nov, Pain in right shoulder M25.511 [place] [id number] [place] [address] 11656- 0690 Nov, Pain in right shoulder M25.511 [place] [id number] [place] [address] 86420- 2667 October, [place] [id number] [place] [address] 76600- 2867 October, Pain in right shoulder M25.511 [place] [id number] [place] [address] 64425- 1384 Sep, Arm pain, right M79.601 [place] [id number] [place] [address] 38619- 1360 Sep, [place] [address] 95952- 9551 Sep, Abnormal glucose R73.09 and Elevated lipids E78.5 [place] [address] 51092- 9038 Sep, Abnormal glucose R73.09 and Elevated lipids E78.5 [place] [id number] [place] [address] 14282- 5108 Aug, [place] [id number] [place] [address] 34062- 4498 Aug, [place] [id number] [place] [address] 94473- 8927 Aug, [place] [id number] [place] [address] 13974- 9306 Aug, 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 ; Hypokalemia E87.6 ; Irritable bowel K58.9 ; Essential hypertension I10 ; Pain in right shoulder M25.511 ; Seizure disorder G40.909 and Screening for lipid disorders Z13.220 [place] [id number] [place] [address] 92210- 5643 28 Jul, 2016 Other chronic pain G89.29 and Pain in right shoulder M25.511 [facility] [id number] [place] [address] 58516- 5765 14 Jul, 2016 Biceps muscle strain, right, subsequent encounter S46.111D [facility] [id number] [place] [address] 51268 -8326 Jul, Arm pain, right M79.601 [place] [id number] [place] [address] 93493- 7668 Jun, [place] [id number] [place] [address] 83863- 4125 Jun, Acute non-recurrent frontal sinusitis J01.10 [place] [id number] [place] [address] 09983- 5666 May, Generalized abdominal pain R10.84 ; Urinary tract infection without hematuria, site unspecified N39.0 ; Hypokalemia E87.6 ; Essential hypertension I10 ; Screening for lipid disorders Z13.220 ; Seizure R56.9 and Low back pain M54.5 [place] [id number] [place] [address] 97227- 4199 Apr, [facility] [place] [address] 28134 -9411 Feb, [place] [id number] [place] [address] 88219- 9339 Jan, [place] [id number] [place] [address] 59061- 3135 Dec, 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 ; Hypokalemia E87.6 ; Irritable bowel K58.9 and Nausea R11.0 [facility] [place] [id number] [place] [address] 52023 -9689 Dec, Generalized abdominal pain R10.84 [place] [id number] [place] [address] 71513- 5058 Nov, [facility] [place] [address] 67648 -7786 14 Aug, 2015 Acute bronchitis J20.9 [place] [id number] [place] [address] 38761- 9076 Aug, [place] [id number] [place] [address] 94853- 7637 08 Aug, 2015 Low back pain M54.5 ; Hypokalemia E87.6 ; Chronic migraine without aura with status migrainosus, not intractable G43.701 ; Tremor, hereditary, 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 ; Irritable bowel K58.9 ; Essential hypertension I10 and Seizure R56.9 [place] [id number] [place] [address] 94232- 8302 Aug, [place] [id number] [place] [address] 89594- 0754 Jul, [place] [address] 40174- 1567 03 Jul, 2015 Low back pain M54.5 ; Hypokalemia E87.6 ; Chronic migraine without aura with status migrainosus, not intractable G43.701 ; Tremor, hereditary, 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 ; Irritable bowel K58.9 ; Essential hypertension I10 and Seizure R56.9 [place] [id number] [place] [address] 78342- 3098 Jun, Hypokalemia E87.6 [place] [id number] [place] [address] 75450- 5751 Jun, ADD (attention deficit disorder) without hyperactivity F90.0 ; Generalized anxiety disorder F41.1 and Major depressive disorder, recurrent episode, moderate F33.1 [place] [id number] [place] [address] 97936- 7861 13 Jun, 2015 Low back pain M54.5 ; Hypokalemia E87.6 ; Chronic migraine without aura with status migrainosus, not intractable G43.701 ; Tremor, hereditary, 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 ; Irritable bowel K58.9 ; Essential hypertension I10 and Seizure R56.9 [place] [address] [place] [address] 04497- 4423 Jun, [place] [id number] [place] [address] 44690- 8666 31 May, 2015 [place] [id number] [place] [address] 63639- 4568 30 May, 2015 Low back pain M54.5 ; Hypokalemia E87.6 ; Chronic migraine without aura with status migrainosus, not intractable G43.701 ; Tremor, hereditary, 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 ; Irritable bowel K58.9 ; Essential hypertension I10 ; Seizure R56.9 and Tinea capitis B35.0 [place] [id number] [place] [address] 32386- 4780 17 May, 2015 Low back pain M54.5 ; Hypokalemia E87.6 ; Chronic migraine without aura with status migrainosus, not intractable G43.701 ; Tremor, hereditary, 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 ; Irritable bowel K58.9 ; Essential hypertension I10 ; Seizure R56.9 ; Otitis media, left H66.92 and Dysuria 788.1 [place] [id number] [place] [address] 06486- 4641 14 May, 2015 Tooth pain K08.8 [place] [address] 57921- 4375 May, [place] [id number] [place] [address] 76867- 2783 May, Low back pain M54.5 ; Hypokalemia E87.6 ; Chronic migraine without aura with status migrainosus, not intractable G43.701 ; Tremor, hereditary, 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 ; Irritable bowel K58.9 and Essential hypertension I10 [place] [id number] [place] [address] 17314- 6118 18 Apr, 2015 Low back pain M54.5 ; Hypokalemia E87.6 ; Chronic migraine without aura with status migrainosus, not intractable G43.701 ; Tremor, hereditary, 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 and Irritable bowel K58.9 [place] [id number] [place] [address] 20142- 4776 Apr, Low back pain M54.5 [facility] [id number] [place] [address] 70392- 9393 Mar, [facility] [id number] [place] [address] 36640- 2097 Mar, Irritable bowel syndrome with diarrhea K58.0 [facility] [address] 37140- 0183 Mar, [facility] [id number] [place] [address] 35462- 8774 Feb, [facility] [address] 07144- 0739 Feb, [facility] [id number] [place] [address] 02502- 6677 Feb, Irritable bowel syndrome 564.1 ; Lumbago 724.2 and Cervical pain (neck) 723.1 [facility] [id number] [place] [address] 69387- 5937 Dec, Major depressive disorder, recurrent episode, moderate 296.32 and Generalized anxiety disorder 300.02 [facility] [id number] [place] [address] 44198- 4526 Nov, [facility] [id number] [place] [address] 65150- 8207 Nov, Major depressive disorder, recurrent episode, moderate 296.32 [facility] [id number] [place] [address] 21151- 8572 Nov, Constipation 564.00 ; Nausea & vomiting 787.01 and Abdominal pain 789.00 [facility] [id number] [place] [address] 81018- 1742 Nov, [facility] [id number] [place] [address] 72936- 8257 October, [facility] [address] [place] [address]- 7230 October, [facility] [address] [id number] [place] [address]- 9919 October, [facility] [place] [facility] [address] [facility] [id number] [place] [address]- 5086 October, [facility] [place] [facility] [address] [facility] [id number] [place] [address]- 5566 Sep, Dysuria 788.1 [facility] [place] [facility] [address] [id number] [place] [address]- 1546 Sep, [facility] [place] [facility] [id number] [place] [address], [place] [address]- 2765 Sep, [facility] [place] [facility] [address] [facility] [id number] [place] [address]- 8399 Sep, [facility] [place] [facility] [id number] [place] [address], [place] [address]- 6522 Sep, [facility] [place] [facility] [address] [id number] [place] [address]- 9866 Aug, [facility] [place] [facility] [id number] [address]- 6908 Aug, [facility] [place] [facility] [address] [facility] [id number] [place] [address]- 8500 Aug, [facility] [place] [facility] [address] [facility] [id number] [place] [address]- 1988 Aug, [facility] [place] [facility] [address] [id number] [place] [address]- 5310 Aug, [facility] [place] [facility] [address] [id number] [place] [address]- 5810 Aug, [facility] [place] [facility] [address] [facility] [id number] [place] [address]- 4746 Aug, [facility] [place] [facility] [address] [facility] [id number] [place] [address]- 3818 Aug, [facility] [place] [facility] [address] [id number] [place] [address]- 7095 Aug, [facility] [place] [facility] [address] [id number] [place] [address]- 4702 Aug, [facility] [place] [facility] [address] [id number] [place] [address]- 0639 Jun, [facility] [place] [facility] [address] [id number] [place] [address]- 5658 Jun, [facility] [place] [facility] [address] [id number] [place] [address]- 3867 Jun, [facility] [place] [facility] [address] [id number] [place] [address]- 5220 Jun, [facility] [place] [facility] [address] [id number] [place] [address]- 6238 May, [facility] [place] [facility] [address] [id number] [place] [address]- 4290 May, [facility] [place] [facility] [address] [id number] [place] [address]- 5800 May, [facility] [place] [facility] [address] [id number] [place] [address]- 5609 May, [facility] [place] [facility] [address] [id number], [place] [address]- 9388 May, [facility] [place] [facility] [address] [id number], [place] [address]- 5881 May, [facility] [place] [facility] [address] [id number] [place] [address]- 1173 May, [facility] [place] [facility] [address] [id number] [place] [address]- 1346 May, [facility] [place] [facility] [address] [id number] [place] [address]- 6548 Mar, [facility] [place] [facility] [address] [id number], [place] [address]- 9266 Mar, [facility] [place] [facility] [address] [id number] [place] [address]- 7561 Mar, [facility] [place] [facility] [address] [id number] [place] [address]- 6853 Mar, [facility] [place] [facility] [address] [id number] [place] [address]- 8908 Mar, [facility] [place] [facility] [address] [id number] [place] [address]- 7506 Mar, [facility] [place] [facility] [address] [id number] [place] [address]- 9935 Mar, [facility] [place] [facility] [address] [id number] [place] [address]- 3494 Mar, [facility] [place] [facility] [address] [facility] [id number] [place] [address]- 3255 Mar, [facility] [place] [facility] [address] [id number] [place] [address]- 4845 Mar, [facility] [place] [facility] [address] [facility] [id number] [place] [address]- 6939 Mar, [facility] [place] [facility] [address] [facility] [id number] [place] [address]- 0801 Mar, [facility] [place] [facility] [address] [id number] [place] [address]- 1242 24 Feb, 2013 [facility] [place] [facility] [address] [id number], [place] [address]- 5346 24 Feb, 2013 [facility] [place] [facility] [address] [id number] [place] [address]- 3104 22 Feb, 2013 [facility] [place] [facility] [address] [facility] [id number] [place] [address]- 4299 22 Feb, 2013 [facility] [place] [facility] [address] [facility] [id number] [place] [address]- 6032 10 Feb, 2013 [facility] [place] [facility] [address] [id number] [place] [address]- 6822 Feb, [facility] [place] [facility] [address] [id number] [place] [address]- 9940 Jan, [facility] [place] [facility] [address] [id number] [place] [address]- 9007 Jan, [facility] [place] [facility] [address] [id number] [place] [address]- 4394 Jan, [facility] [place] [facility] [address] [id number] [place] [address]- 3535 Jan, [facility] [place] [facility] [address] [id number] [place] [address]- 7158 Jan, [facility] [place] [facility] [address] [id number] [place] [address]- 9715 Jan, [facility] [place] [facility] [address] [id number] [place] [address]- 1694 Jan, [facility] [place] [facility] [address] [id number] [place] [address]- 9205 Jan, [facility] [place] [facility] [address] [id number] [place] [address]- 7724 Dec, [facility] [place] [facility] [address] [id number] [place] [address]- 0943 Dec, [facility] [place] [facility] [address] [id number] [place] [address]- 8115 Dec, [facility] [place] [facility] [address] [id number] [place] [address]- 8060 Dec, [facility] [place] [facility] [address] [id number] [place] [address]- 9860 Dec, [facility] [place] [facility] [address] [id number] [place] [address]- 5147 Dec, [facility] [place] [facility] [address] [id number] [place] [address]- 3905 Dec, [facility] [place] [facility] [address] [id number] [place] [address]- 2222 Dec, [facility] [place] [facility] [address] [id number] [place] [address]- 2290 October, [facility] [place] [facility] [address] [id number] [place] [address]- 4633 October, [facility] [place] [facility] [address] [id number] [place] [address] Sep, [facility] [place] [facility] [address] [id number] [place] [address] Sep, [facility] [place] [facility] [address] [id number] [place] [address] Sep, [facility] [place] [facility] [address] [id number] [place] [address] Sep, [facility] [place] [facility] [address] [id number] [place] [address] Sep, [facility] [place] [facility] [address] [id number] [place] [address] Sep, [facility] [place] [facility] [address] [id number] [place] [address] Sep, [facility] [place] [facility] [address] [id number] [place] [address] Sep, [facility] [place] [facility] [address] [id number] [place] [address] Sep, [facility] [place] [facility] [address] [id number] [place] [address] Sep, [facility] [place] [facility] [address] [id number] [place] [address] Sep, [facility] [place] [facility] [address] [id number] [place] [address] Sep, [facility] [place] [facility] [address] [id number] [place] [address] Aug, [facility] [place] [facility] [address] [id number] [place] [address] Aug, [facility] [place] [facility] [address] [id number] [place] [address] Aug, [facility] [place] [facility] [address] [id number] [place] [address] Jun, [facility] [place] [facility] [address] [id number] [place] [address] Jun, [facility] [place] [facility] [address] [id number] [place] [address] Jun, [facility] [place] [facility] [address] [id number] [place] [address] Jun, [facility] [place] [facility] [address] [id number] [place] [address] Jun, [facility] [place] [facility] [address] [id number] [place] [address] Jun, [facility] [place] [facility] [address] [id number] [place] [address] Jun, [facility] [place] [facility] [address] [id number] [place] [address] Jun, [facility] [place] [facility] [address] [id number] [place] [address] Jun, [facility] [place] [facility] [address] [id number] [place] [address] Jun, [facility] [place] [facility] [address] [id number] [place] [address] May, [facility] [place] [facility] [address] [id number] [place] [address] May, [facility] [place] [facility] [address] [id number] [place] [address] May, [facility] [place] [facility] [address] [id number] [place] [address] May, [facility] [place] [facility] [address] [id number] [place] [address] Apr, [facility] [place] [facility] [address] [id number] [place] Apr, [facility] [place] [facility] [address] [id number] [place] [address] Apr, [facility] [place] [facility] [address] [id number] [place] [address] Apr, [facility] [place] [facility] [address] [id number] [place] [address] Apr, [facility] [place] [facility] [address] [id number] [place] [address] Apr, [facility] [place] [facility] [address] [id number] [place] [address] Apr, [facility] [place] [facility] [address] [id number] [place] [address] Apr, [facility] [place] [facility] [address] [id number] [place] [address] Mar, [facility] [place] [facility] [address] [id number] [place] [address] Mar, [facility] [place] [facility] [address] [id number], [place] [address] Mar, [facility] [place] [facility] [address] [id number] [place] [address] Mar, [facility] [place] [facility] [address] [id number] [place] [address] Mar, [facility] [place] [facility] [address] [id number] [place] [address] Feb, [facility] [place] [facility] [address] [id number], [place] [address] 11 Feb, 2013 [facility] [place] [facility] [address] [id number] [place] [address] 05 Feb, 2013 [facility] [place] [facility] [address] [id number] [place] [address] 05 Feb, 2013 [facility] [place] [facility] [address] [id number] [place] [address] Feb, [facility] [place] [facility] [address] [id number] [place] [address] Jan, [facility] [place] [facility] [address] [id number] [place] [address] Jan, [facility] [place] [facility] [address] [id number] [place] [address] Nov, [facility] [place] [facility] [address] [id number] [place] [address]21 Nov, [facility] [place] [facility] [address] [id number] [place] [address] Nov, [facility] [place] [facility] [address] [id number] [place] [address] Nov, [facility] [place] [facility] [address] [id number] [place] [address] October, [facility] [place] [facility] [address] [id number] [place] [address] Sep, [facility] [place] [facility] [address] [id number] [place] [address] 27 Aug, 2012 [facility] [place] [facility] [address] [id number] [place] [address] 26 Aug, 2012 [facility] [place] [facility] [address] [id number] [place] [address]683 16 Aug, 2012 [facility] [place] [facility] [address] [id number] [place] [address] 06 Aug, 2012 [facility] [place] [facility] [address] [id number] [place] [address] 44[address] Jul, [facility] [address] [id number] [place] [address] Jun, [facility] [address] [facility] [id number] [place] [address] Jun, [facility] [address] [facility] [id number] [place] [address] May, [facility] [address] [facility] [id number] [place] [address] 7665 May, [facility] [address] [facility] [id number] [place] [id number] Mar, [facility] [address] [facility] [id number] [place] [address] Mar, [facility] [address] [facility] [id number] [place] [address] Mar, [facility] [address] [facility] [id number] [place] [address] Mar, [facility] [address] [facility] [id number] [place] [address] Mar, [facility] [address] [facility] [id number] [place] [address] Mar, [facility] [place] [facility] [address] [id number] [place] [address] Mar, [facility] [address] [facility] [id number] [place] Mar, [facility] [place] [facility] [address] [facility] [id number] [place] [address] Mar, [facility] [place] [facility] [address] [facility] [id number] [place] [address] Mar, [facility] [place] [facility] [address] [facility] [id number] [place] [address] Mar, [facility] [place] [facility] [address] [id number] [place] [address]- [address] 17 Mar, 2012 [facility] [place] [facility] [address] [id number] [place] [address] 17 Mar, 2012 [facility] [place] [facility] [address] [id number] [place] [address]- 8811 15 Mar, 2012 [facility] [place] [facility] [address] [id number] [place] [address] 9843 Mar, [facility] [place] [facility] [address] [id number] [place] [address]- 3058 15 Mar, 2012 [facility] [place] [facility] [address] [id number] [place] [address]- [address] Mar, [facility] [place] [facility] [address] [facility] [id number] [place] [address]- [address]35 Mar, [facility] [place] [facility] [address] [id number], [place] [address] Mar, [facility] [place] [facility] [address] [facility] [id number] [place] [address]70 Mar, [facility] [place] [facility] [address] [facility] [id number], [place] [address]- [address] Mar, [facility] [place] [facility] [address] [facility] [id number], [place] [address] Mar, [facility] [place] [facility] [address] [id number], [place] [address] Mar, [facility] [place] [facility] [address] [id number], [place] [address] 8948 19 Feb, 2012 [facility] [place] [facility] [address] [id number], [place] [address]- [address]31 18 Sep2011 [facility] [place] [facility] [address] [facility] [id number] [address] 17 Feb, 2012 [facility] [place] [facility] [address] [id number], [place] [address]- 9285 14 Feb, 2012 [facility] [place] [facility] [address] [id number] [place] [address]- 0968 14 Feb, 2012 [facility] [place] [facility] [address] [id number] [place] [address]- 5353 12 Feb, 2012 [facility] [place] [facility] [address] [id number] [place] [address]- 8624 10 Feb, 2012 [facility] [place] [facility] [address] [id number] [place] [address]- 2904 31 Jan, 2012 [facility] [place] [facility] [address] [id number] [place] [address]- 7021 30 Jan, 2012 [facility] [place] [facility] [address] [id number] [place] [address]- 9914 22 Jan, 2012 [facility] [place] [facility] [address] [id number] [place] [address]- 5877 20 Jan, 2012 [facility] [place] [facility] [address] [id number] [place] [address]- 2679 17 Jan, 2012 [facility] [place] [facility] [address] [id number] [place] [address]- 8671 17 Jan, 2012 [facility] [place] [facility] [address] [id number] [place] [address]- 2420 17 Jan, 2012 [facility] [place] [facility] [address] [id number] [place] [address]- 0007 16 Jan, 2012 [facility] [place] [facility] [address] [id number] [place] [address]- 8033 13 Jan, 2012 [facility] [place] [facility] [address] [id number] [place] [address]- 8948 07 Jan, 2012 [facility] [place] [facility] [address] [id number] [place] [address]- 3073 26 Dec, 2011 [facility] [place] [facility] [address] [id number] [place] [address]- 7065 24 Dec, 2011 [facility] [place] [facility] [address] [id number] [place] [address]- [address]30 23 Dec, 2011 [facility] [place] [facility] [address] [id number] [place] [address]- 0656 19 Dec, 2011 [facility] [place] [facility] [address] [id number] [place] [address] 2546 18 Dec, 2011 [facility] [place] [facility] [address] [id number] [place] [address] 2546 17 Dec, 2011 [facility] [place] [facility] [address] [id number] [place] [address] 2546 16 Dec, 2011 [facility] [place] [facility] [address] [id number] [place] [address]- 1836 14 Dec, 2011 [facility] [place] [facility] [address] [id number] [place] [address]- 2443 Dec, [facility] [place] [facility] [address] [id number] [place] [address]- 3804 Dec, [facility] [place] [facility] [address] [id number] [place] [address]- 0942 06 Dec, 2011 [facility] [place] [facility] [address] [id number] [place] [address]- 5116 Nov, [facility] [place] [facility] [address] [id number] [place] [address]- 7661 Nov, [facility] [place] [facility] [address] [id number] [place] [address]- 6945 Nov, [facility] [place] [facility] [address] [id number] [place] [address] 2548 Nov, [facility] [place] [facility] [address] [id number] [place] [address]- 0186 Nov, [facility] [place] [facility] [address] [id number] [place] [address] 2546 Nov, [facility] [place] [facility] [address] [id number] [place] [address]- 9761 Nov, [facility] [address] [facility] [id number], [place] [address]- [address] Nov, [facility] [address] [facility] [id number], [place] [address]- 4[address] Nov, [facility] [address] [facility] [id number], [place] [address]- 1799 Nov, [facility] [address] [facility] [id number][place] [address] October, IMMUNIZATIONS No Known Immunizations SOCIAL HISTORY Never Assessed REASON FOR VISIT Refill request PLAN OF CARE VITAL SIGNS MEDICATIONS Medication Instructions Dosage Frequency Start Date End Date Duration Status Zanaflex 4 mg Orally 2 times a day 1 tablet as needed 12h 30 Active RESULTS No Results PROCEDURES No [...]
--- OUTSIDE RECORDS SUMMARY | 2018-08-12 15:08 | XMS REPORT ---
Author Author JEFF CONNORS [facility] Address [address] [place] [address] Care Team Providers Care Industrial Engineering Technologist Name Role Phone DORY JEFF Unavailable PROBLEMS Type Condition ICD9-CM Code RVH00-WS Code Onset Dates Condition Status SNOMED Code Problem Essential hypertension I10 Active 49678491 Problem Other chronic pain G89.29 Active 54439620 Problem 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 Active 36501673 Problem Other chronic pain G89.29 Active 13615605 Problem Intractable chronic migraine without aura and with status migrainosus G43.711 Active 159647213 Problem Primary insomnia F51.01 Active 8775475 Problem Seizure disorder G40.909 Active 742769634 Problem Moderate persistent asthma with exacerbation J45.41 Active 214479651 Problem Moderate persistent asthma without complication J45.40 Active 455712346 Problem Elevated liver enzymes R74.8 Active 030615208 Problem Hyperlipidemia LDL goal <100 E78.5 Active 77568990 Problem Hypokalemia E87.6 Active 74353019 Problem Tremor, hereditary, 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 Active 667829709 Problem Abnormal glucose R73.09 Active 150073234 Problem Irritable bowel K58.9 Active 71424369 Problem Major depressive disorder, recurrent episode, moderate F33.1 Active 044130276 Problem Chronic migraine without aura with status migrainosus, not intractable G43.701 Active 173623141 ALLERGIES No Information ENCOUNTERS Encounter Location Date Diagnosis [facility] [id number] [address] May, [facility] [id number], [place] [address] 4202 Mar, [facility] [id number] [address] 0389 Mar, [facility] [address], [place] [address] 2245 Mar, [facility] [address], [place] [address] 9813 14 Feb, 2018 [facility] [address], [place] [address] 9298 10 Feb, 2018 [facility] [id number] [place] [address] 23364- 6257 05 Feb, 2018 [facility] [id number] [place] [address] 36474- 6514 Jan, [facility] [id number] [place] [address] 28515- 4074 Dec, [facility] [id number] [place] [address] 56363- 3806 Dec, Other chronic pain G89.29 ; Pain in right shoulder M25.511 and Liver enzyme elevation R74.8 [facility] [id number] [place] [address] 95632- 1805 Nov, Other chronic pain G89.29 and Pain in right shoulder M25.511 [facility] [id number] [place] [address] 18199- 7691 October, [facility] [address], [place] [address] October, Right shoulder pain, unspecified chronicity M25.511 [facility] [address], [place] [address] 8579 Aug, Elevated liver enzymes R74.8 and Hyperlipidemia LDL goal < 100 E78.5 [facility] [id number] [place] [address] 04653- 9375 Aug, [facility] [id number] [place] [address] 35020- 0102 Jul, [facility] [id number] [place] [address] 76581- 9352 Jul, Intractable chronic migraine without aura and with status migrainosus G43.711 ; Fever, unspecified fever cause R50.9 and Elevated liver enzymes R74.8 [facility] [id number] [place] [address] 03700- 1024 Jun, Difficulty urinating R39.198 and Moderate persistent asthma with exacerbation J45.41 [place] [address] 70778- 9047 Jun, [place] [address] 89464- 0841 Jun, Moderate persistent asthma with exacerbation J45.41 [place] [address] 22189- 4855 May, Elevated liver enzymes R74.8 and Hyperlipidemia LDL goal < [address] [address]59- 8538 May, Elevated lipids E78.5 [place] [address] 57569- 7297 Apr, Elevated liver enzymes R74.8 [place] [address] 45587- 5388 Apr, Elevated liver enzymes R74.8 [place] [id number] [place] [address] 65677- 5147 Apr, Superior glenoid labrum lesion of right shoulder, subsequent encounter S43.431D [place] [id number] [place] [address] 70613- 4678 Apr, Hypokalemia E87.6 ; Major depressive disorder, recurrent episode, moderate F33.1 ; Other abnormalities of breathing R06.89 and Dyspnea, unspecified R06.00 [facility] WALK IN [facility] [id number] [place] [address] 79434 -5626 Mar, Moderate persistent asthma without complication J45.40 [place] [id number] [address] 9458 Mar, Impingement syndrome of right shoulder M75.41 [facility] [id number] [place] [address] 40744- 7067 Jan, [facility] [id number] [place] [address] 05127- 1081 Jan, Chronic migraine without aura with status migrainosus, not intractable G43.701 ; Essential hypertension I10 ; Irritable bowel K58.9 ; Primary insomnia F51.01 and Hypokalemia E87.6 [facility] [id number] [place] [address] 14515- 5463 Dec, [facility] [id number] [place] [address] 50328- 2815 Dec, Pain in right shoulder M25.511 [facility] [id number] [place] [address] 96604- 2998 Dec, Essential hypertension I10 [facility] [id number] [place] [address] 77933- 8195 Dec, [facility] [id number] [place] [address] 85964- 6019 Nov, Essential hypertension I10 [facility] [id number] [place] [address] 64189- 0836 14 Nov, 2016 Pain in right shoulder M25.511 [facility] [id number] [place] [address] 12315- 7285 Nov, Pain in right shoulder M25.511 [facility] [id number] [place] [address] 20240- 2490 October, [facility] [id number] [place] [address] 03111- 0334 October, Pain in right shoulder M25.511 [facility] [id number] [place] [address] 97202- 7139 Sep, Arm pain, right M79.601 [place] [id number] [place] [address] 55281- 2032 Sep, [place] [id number] [place] [address] 08357- 9277 Sep, Abnormal glucose R73.09 and Elevated lipids E78.5 [place] [address] 59802- 2295 Sep, Abnormal glucose R73.09 and Elevated lipids E78.5 [place] [id number] [place] [address] 55443- 0478 Aug, [place] [id number] [place] [address] 75156- 3204 Aug, [place] [id number] [place] [address] 41493- 8742 Aug, [place] [address] 65661- 6891 Aug, 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 ; Hypokalemia E87.6 ; Irritable bowel K58.9 ; Essential hypertension I10 ; Pain in right shoulder M25.511 ; Seizure disorder G40.909 and Screening for lipid disorders Z13.220 [place] [id number] [place] [address] 26238- 1851 28 Jul, 2016 Other chronic pain G89.29 and Pain in right shoulder M25.511 [place] [id number] [place] [address] 89498- 3878 14 Jul, 2016 Biceps muscle strain, right, subsequent [facility].111[facility] [id number] [place] [address] 65101 -9906 08 Jul, 2016 Arm pain, right M79.601 [place] [id number] [place] [address] 03621- 9334 Jun, [place] [id number] [place] [address] 88913- 9747 13 Jun, 2016 Acute non-recurrent frontal sinusitis J01.10 [place] [address] 32199- 5881 14 May, 2016 Generalized abdominal pain R10.84 ; Urinary tract infection without hematuria, site unspecified N39.0 ; Hypokalemia E87.6 ; Essential hypertension I10 ; Screening for lipid disorders Z13.220 ; Seizure R56.9 and Low back pain M54.5 [place] [address] 29860- 8048 Apr, [facility] [address] 60980 -6977 Feb, [place] [address] 10823- 9739 Jan, [place] [address] 41564- 5016 Dec, 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 ; Hypokalemia E87.6 ; Irritable bowel K58.9 and Nausea R11.0 [facility] [id number] [place] [address] 13642 -1116 Dec, Generalized abdominal pain R10.84 [place] [id number] [place] [address] 44197- 5403 Nov, [facility] [address] 91252 -0971 Aug, Acute bronchitis J20.9 [place] [address] 83390- 8104 14 Aug, 2015 [place] [address] 79975- 8485 08 Aug, 2015 Low back pain M54.5 ; Hypokalemia E87.6 ; Chronic migraine without aura with status migrainosus, not intractable G43.701 ; Tremor, hereditary, 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 ; Irritable bowel K58.9 ; Essential hypertension I10 and Seizure R56.9 [place] [id number] [place] [address] 00831- 1012 Aug, [place] [id number] [place] [address] 15632- 7472 Jul, [place] [address] 41628- 8067 Jul, Low back pain M54.5 ; Hypokalemia E87.6 ; Chronic migraine without aura with status migrainosus, not intractable G43.701 ; Tremor, hereditary, 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 ; Irritable bowel K58.9 ; Essential hypertension I10 and Seizure R56.9 [place] [id number] [place] [address] 98474- 7476 Jun, Hypokalemia E87.6 [place] [address] 70373- 6220 Jun, ADD (attention deficit disorder) without hyperactivity F90.0 ; Generalized anxiety disorder F41.1 and Major depressive disorder, recurrent episode, moderate F33.1 [place] [id number] [place] [address] 58243- 6786 Jun, Low back pain M54.5 ; Hypokalemia E87.6 ; Chronic migraine without aura with status migrainosus, not intractable G43.701 ; Tremor, hereditary, 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 ; Irritable bowel K58.9 ; Essential hypertension I10 and Seizure R56.9 [place] [id number] [place] [address] 66543- 0490 Jun, [place] [id number]- 9515 May, [place] [id number] [place] [address] 13037- 3944 May, Low back pain M54.5 ; Hypokalemia E87.6 ; Chronic migraine without aura with status migrainosus, not intractable G43.701 ; Tremor, hereditary, 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 ; Irritable bowel K58.9 ; Essential hypertension I10 ; Seizure R56.9 and Tinea capitis B35.0 [place] [id number] [place] [address] 38029- 9171 May, Low back pain M54.5 ; Hypokalemia E87.6 ; Chronic migraine without aura with status migrainosus, not intractable G43.701 ; Tremor, hereditary, 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 ; Irritable bowel K58.9 ; Essential hypertension I10 ; Seizure R56.9 ; Otitis media, left H66.92 and Dysuria 788.1 [address] [address] 70330- 0412 May, Tooth pain K08.8 [place] [address] 03017- 9177 May, [place] [address] 75539- 5330 May, Low back pain M54.5 ; Hypokalemia E87.6 ; Chronic migraine without aura with status migrainosus, not intractable G43.701 ; Tremor, hereditary, 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 ; Irritable bowel K58.9 and Essential hypertension I10 [place] [address] 35443- 4951 Apr, Low back pain M54.5 ; Hypokalemia E87.6 ; Chronic migraine without aura with status migrainosus, not intractable G43.701 ; Tremor, hereditary, 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 and Irritable bowel K58.9 [address] [address] 01716- 8441 Apr, Low back pain M54.5 [place] [address] 34292- 5646 Mar, [place] [address] [place] [address]- 5546 Mar, Irritable bowel syndrome with diarrhea K58.0 [facility] [id number] [place] [address] 52409- 5020 Mar, [facility] [id number] [place] [address] 563156- 2208 Feb, [facility] [id number] [place] [address] 35888- 4324 Feb, [facility] [id number] [place] [address] 63290- 2440 Feb, Irritable bowel syndrome 564.1 ; Lumbago 724.2 and Cervical pain (neck) 723.1 [facility] [id number] [place] [address] 17277- 3095 Dec, Major depressive disorder, recurrent episode, moderate 296.32 and Generalized anxiety disorder 300.02 [facility] [id number] [place] [address] 28127- 7981 Nov, [facility] [id number] [place] [address] 55472- 9820 Nov, Major depressive disorder, recurrent episode, moderate 296.32 [facility] [address], [place] [address]- 8500 Nov, Constipation 564.00 ; Nausea & vomiting 787.01 and Abdominal pain 789.00 [facility] [address], [place] [address]- 8517 Nov, [facility] [id number] [address]- 0000 October, [facility] [id number] [place] [address] 16231- 5407 October, [facility] [address], [place] [address]- 1996 October, [facility] [id number] [place] [address]- 1586 October, [facility] [address] [id number] [place] [address]- 5472 Sep, Dysuria 788.1 [facility] [address] [id number] [place] [address]- 8306 Sep, [facility] [place] [facility] [address] [id number] [place] [address]- 7016 Sep, [facility] [place] [facility] [address] [id number] [place] [address]- 0199 Sep, [facility] [place] [facility] [address] [id number] [place] [address]- 9938 Sep, [facility] [place] [facility] [address] [facility] [id number] [place] [address]- 0747 Aug, [facility] [place] [facility] [address] [facility] [id number] [place] [address]- 1989 Aug, [facility] [place] [facility] [address] [id number] [place] [address]- 7480 Aug, [facility] [place] [facility] [address] [id number] [place] [address]- 2279 Aug, [facility] [place] [facility] [address] [facility] [id number] [place] [address]- 0993 Aug, [facility] [place] [facility] [address] [facility] [id number] [place] [address]- 5965 Aug, [facility] [place] [facility] [address] [id number] [place] [address]- 0306 Aug, [facility] [place] [facility] [address] [id number] [place] [address]- 2476 Aug, [facility] [place] [facility] [address] [facility] [id number] [place] [address]- 2546 Aug, [facility] [place] [facility] [address] [facility] [id number] [place] [address]- 7156 Aug, [facility] [place] [facility] [address] [id number] [place] [address]- 5649 Jun, [facility] [place] [facility] [address] [id number] [place] [address]- 1268 Jun, [facility] [place] [facility] [address] [id number] [place] [address]- 6943 Jun, [facility] [place] [facility] [address] [id number] [place] [address]- 1744 Jun, [facility] [place] [facility] [address] [id number] [place] [address]- 8691 May, [facility] [place] [facility] [address] [id number] [place] [address]- 8997 May, [facility] [place] [facility] [address] [id number] [place] [address]- 5254 May, [facility] [place] [facility] [address] [id number] [place] [address]- 4280 May, [facility] [place] [facility] [address] [id number] [place] [address]- 7154 May, [facility] [place] [facility] [address] [id number] [place] [address]- 7126 May, [facility] [place] [facility] [address] [id number] [place] [address]- 4816 May, [facility] [place] [facility] [address] [id number] [address]- 6286 May, [facility] [place] [facility] [address] [id number] [place] [address]- 6135 Mar, [facility] [place] [facility] [address] [id number] [place] [address]- 4682 Mar, [facility] [place] [facility] [address] [id number] [place] [address]- 5767 Mar, [facility] [place] [facility] [address] [id number] [place] [address]- 9280 Mar, [facility] [place] [facility] [address] [id number] [place] [address]- 1572 Mar, [facility] [place] [facility] [address] [id number] [place] [address]- 9787 Mar, [facility] [place] [facility] [address] [id number] [place] [address]- 4474 Mar, [facility] [place] [facility] [address] [id number] [place] [address]- 6650 Mar, [facility] [place] [facility] [address] [id number] [place] [address]- 9857 Mar, [facility] [place] [facility] [address] [id number] [place] [address]- 8610 Mar, [facility] [place] [facility] [address] [id number] [place] [address]- 0565 Mar, [facility] [place] [facility] [address] [id number] [place] [address]- 9371 Mar, [facility] [place] [facility] [address] [id number] [place] [address]- 2890 24 Feb, 2014 [facility] [place] [facility] [address] [id number] [place] [address]- 2697 24 Feb, 2014 [facility] [place] [facility] [address] [id number] [place] [address]- 2242 Feb, [facility] [place] [facility] [address] [id number] [place] [address]- 5768 22 Feb, 2014 [facility] [place] [facility] [address] [id number] [place] [address]- 4039 Feb, [facility] [place] [facility] [address] [id number] [place] [address]- 6176 Feb, [facility] [place] [facility] [address] [id number] [place] [address]- 1810 Jan, [facility] [place] [facility] [address] [id number] [facility] [address]- 5592 Jan, [facility] [place] [facility] [address] [id number] [place] [address]- 2628 Jan, [facility] [place] [facility] [address] [id number] [place] [address]- 6771 Jan, [facility] [place] [facility] [address] [id number] [place] [address]- 9053 Jan, [facility] [place] [facility] [address] [id number] [place] [address]- 4357 Jan, [facility] [place] [facility] [address] [id number] [place] [address]- 4512 Jan, [facility] [place] [facility] [address] [id number] [place] [address]- 3548 Jan, [facility] [place] [facility] [address] [id number] [place] [address]- 4259 Dec, [facility] [place] [facility] [address] [id number] [place] [address]- 4223 Dec, [facility] [place] [facility] [address] [id number] [place] [address]- 0413 Dec, [facility] [place] [facility] [address] [id number] [place] [address]- 2863 Dec, [facility] [place] [facility] [address] [id number] [place] [address]- 9269 Dec, [facility] [place] [facility] [address] [id number] [place] [address]- 7311 Dec, [facility] [place] [facility] [address] [id number] [place] [address]- 7359 Dec, [facility] [place] [facility] [address] [id number] [place] [address]- 9778 Dec, [facility] [place] [facility] [address] [id number] [place] [address]- 5839 October, [facility] [place] [facility] [address] [id number] [place] [address]- 7344 October, [facility] [place] [facility] [address] [id number] [place] [address]- 6105 Sep, [facility] [place] [facility] [address] [id number] [place] [address]- 4285 Sep, [facility] [place] [facility] [address] [id number] [place] [address]- 5128 Sep, [facility] [place] [facility] [address] [id number] [place] [address] Sep, [facility] [place] [facility] [address] [id number] [place] [address] Sep, [facility] [place] [facility] [address] [id number] [place] [address] Sep, [facility] [place] [facility] [address] [id number] [place] [address] Sep, [facility] [place] [facility] [address] [id number] [place] [address] Sep, [facility] [place] [facility] [address] [id number] [place] [address] Sep, [facility] [place] [facility] [address] [id number] [place] [address] 2010 Sep, [facility] [place] [facility] [address] [id number] [place] [address] Sep, [facility] [place] [facility] [address] [id number] [place] [address] Sep, [facility] [place] [facility] [address] [id number] [place] [address] Aug, [facility] [place] [facility] [address] [id number] [place] [address] Aug, [facility] [place] [facility] [address] [id number] [place] [address] 05 Aug, 2013 [facility] [address] [id number] [place] [address] Jun, [facility] [address] [id number] [place] [address] 14 Jun, 2013 [facility] [address] [id number] [place] [address] Jun, [facility] [address] [id number] [place] [address] Jun, [facility] [address] [id number] [place] [address] Jun, [facility] [place] [facility] [address] [id number] [place] [address] Jun, [facility] [address] [id number] [place] [address] Jun, [facility] [address] [id number] [place] [address] Jun, [facility] [address] [id number] [place] [address] Jun, [facility] [address] [id number] [place] [address] Jun, [facility] [address] [id number] [place] [address] May, [facility] [address] [id number] [place] [address] May, [facility] [place] [facility] [address] [id number] [place] [address] May, [facility] [place] [facility] [address] [id number] [place] [address] May, [facility] [address] [id number] [place] [address] Apr, [facility] [place] [facility] [address] [id number] [place] [address] Apr, [facility] [place] [facility] [address] [id number] [place] [address] Apr, [facility] [place] [facility] [address] [id number] [place] [address] Apr, [facility] [place] [facility] [address] [id number] [place] [address] Apr, [facility] [place] [facility] [address] [id number] [place] [address] Apr, [facility] [place] [facility] [address] [id number] [place] [address] Apr, [facility] [place] [facility] [address] [id number] [place] [address] Apr, [facility] [place] [facility] [address] [id number] [place] [address] Mar, [facility] [place] [facility] [address] [id number] [place] [address] Mar, [facility] [place] [facility] [address] [id number], [place] [address] Mar, [facility] [place] [facility] [address] [id number], [place] [address] Mar, [facility] [place] [facility] [address] [id number], [place] [address] Mar, [facility] [place] [facility] [address] [id number], [place] [address] Feb, [facility] [place] [facility] [address] [id number], [place] [address] Feb, [facility] [place] [facility] [address] [id number], [place] [address] 05 Feb, 2013 [facility] [place] [facility] [address] [id number], [place] [address] 05 Feb, 2013 [facility] [facility] [address] [id number] [place] [address] Feb, [facility] [place] [facility] [address] [id number] [place] [address] Jan, [facility] [place] [facility] [address] [id number] [place] [address] Jan, [facility] [place] [facility] [address] [id number] [place] [address] Nov, [facility] [place] [facility] [address] [id number] [place] [address] Nov, [facility] [place] [facility] [address] [id number] [place] [address] Nov, [facility] [address] [facility] [id number] [place] [address] Nov, [facility] [place] [facility] [address] [id number] [place] [address] October, [facility] [address] [id number] [place] [address] Sep, [facility] [place] [facility] [address] [id number] [place] [address] Aug, [facility] [place] [facility] [address] [id number] [place] [address] Aug, [facility] [place] [facility] [address] [id number] [place] [address] Aug, [facility] [place] [facility] [address] [id number] [place] [address] Aug, [facility] [place] [facility] [address] [id number] [place] [address] Jul, [facility] [place] [facility] [address] [id number] [place] [address] Jun, [facility] [place] [facility] [address] [id number] [place] [address] Jun, [facility] [place] [facility] [address] [id number] [place] [address] May, [facility] [place] [facility] [address] [id number] [place] [address] May, [facility] [place] [facility] [address] [id number] [place] [id number] Mar, [facility] [place] [facility] [address] [id number] [place] [address] Mar, [facility] [place] [facility] [address] [id number] [place] [address] Mar, [facility] [place] [facility] [address] [id number] [place] [address] Mar, [facility] [place] [facility] [address] [id number] [place] [address] Mar, [facility] [address] [id number] [place] [address] Mar, [facility] [place] [facility] [address] [id number] [place] [address] Mar, [facility] [place] [facility] [address] [id number] [place] [address] Mar, [facility] [place] [facility] [address] [id number] [place] [address] Mar, [facility] [place] [facility] [address] [id number] [place] [address] Mar, [facility] [place] [facility] [address] [id number] [place] [address] Mar, [facility] [place] [facility] [address] [id number] [place] [address] Mar, [facility] [place] [facility] [address] [id number] [place] [address] Mar, [facility] [place] [facility] [address] [id number] [place] [address] 15 Mar, 2012 [facility] [place] [facility] [address] [id number] [place] [address] 15 Mar, 2012 [facility] [place] [facility] [address] [id number] [place] [address] 15 Mar, 2012 [facility] [place] [facility] [address] [id number] [place] [address] 15 Mar, 2012 [facility] [place] [facility] [address] [id number] [place] [address] Mar, [facility] [place] [facility] [address] [id number] [place] [address] Mar, [facility] [place] [facility] [address] [id number] [place] [address] 08 Mar, 2012 [facility] [place] [facility] [address] [id number] [place] [address] 08 Mar, 2012 [facility] [place] [facility] [address] [id number] [place] [address] 03 Mar, 2012 [facility] [place] [facility] [address] [id number] [place] [address] Mar, [facility] [place] [facility] [address] [id number], [place] [address] 19 Sep, 2011 [facility] [place] [facility] [address] [id number], [place] [address] 18 Sep, 2011 [facility] [place] [facility] [address] [id number] [place] [address]- [address] 17 Sep2011 [facility] [place] [facility] [address] [id number] [place] [address]- 5021 14 Sep2011 [facility] [place] [facility] [address] [id number] [place] [address] 14 Sep2011 [facility] [place] [facility] [address] [id number] [place] [address] 12 Feb, 2012 [facility] [place] [facility] [address] [id number] [place] [address] 10 Feb, 2012 [facility] [place] [facility] [address] [id number] [place] [address] 31 Jan, 2012 [facility] [place] [facility] [address] [id number] [place] [address]- [address] 30 Jan, 2012 [facility] [place] [facility] [address] [id number] [place] [address]- 9799 22 Jan, 2012 [facility] [place] [facility] [address] [id number] [place] [address] Jan, [facility] [place] [facility] [address] [id number] [place] [address] 39[address] Jan, [facility] [place] [facility] [address] [id number] [place] [address] Jan, [facility] [place] [facility] [address] [id number] [place] [address] Jan, [facility] [place] [facility] [address] [id number] [place] [address] 16 Jan, 2012 [facility] [place] [facility] [address] [id number] [place] [address] Jan, [facility] [place] [facility] [address] [id number] [place] [address] Jan, [facility] [place] [facility] [address] [id number] [place] [address] Dec, [facility] [place] [facility] [address] [id number] [place] [address] Dec, [facility] [place] [facility] [address] [id number] [place] [address]94 Dec, [facility] [place] [facility] [address] [id number] [place] [address] Dec, [facility] [place] [facility] [address] [id number] [place] [address] 18 Dec, 2011 [facility] [place] [facility] [address] [id number] [place] [address]46 17 Dec, 2011 [facility] [place] [facility] [address] [id number] [facility] [place] [address] 2546 16 Dec, 2011 [facility] [place] [facility] [address] [id number] [place] [address] 2546 14 Dec, 2011 [facility] [place] [facility] [address] [id number] [place] [address] 2544 12 Dec, 2011 [facility] [place] [facility] [address] [id number] [place] [address]- [address] 12 Dec, 2011 [facility] [place] [facility] [address] [id number] [place] [address]- [address]359 06 Dec, 2011 [facility] [place] [facility] [address] [id number] [place] [address]- [address] 29 Nov, 2011 [facility] [place] [facility] [address] [id number] [place] [address] 2544 27 Nov, 2011 [facility] [place] [facility] [address] [id number] [place] [address]- 2543 25 Nov, 2011 [facility] [place] [facility] [address] [id number] [place] [address] 254 23 Nov, 2011 [facility] [place] [facility] [address] [id number] [place] [address] 2540 21 Nov, 2011 [facility] [place] [facility] [address] [id number] [facility] [place] [address] 2549 20 Nov, 2011 [facility] [place] [facility] [address] [id number] [place] [address] 2546 13 Nov, 2011 [facility] [place] [facility] [address] [id number] [place] [address] 2546 13 Nov, 2011 [facility] [place] [facility] [address] [id number] [place] [address]- 59[address] Nov, [facility] [address] [facility] [id number] [place] [address] Nov, [facility] [address] [facility] [id number] [place] [address] October, IMMUNIZATIONS No Known Immunizations SOCIAL HISTORY Never Assessed REASON FOR VISIT No Show Follow Up PLAN OF CARE VITAL SIGNS MEDICATIONS Unknown [...]
--- OUTSIDE RECORDS SUMMARY | 2018-08-12 15:09 | XMS REPORT ---
Author Author SCARLET ALVES Organization [facility] Address [address] [place] [address] Care Team Providers Care Physical Therapy Assistant Name Role Phone SCARLET ALVES Unavailable PROBLEMS Type Condition ICD9-CM Code ESO25-CE Code Onset Dates Condition Status SNOMED Code Problem Essential hypertension I10 Active 03446108 Problem Other chronic pain G89.29 Active 18271860 Problem 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 Active 66569608 Problem Other chronic pain G89.29 Active 14545012 Problem Intractable chronic migraine without aura and with status migrainosus G43.711 Active 635216544 Problem Primary insomnia F51.01 Active 4115712 Problem Seizure disorder G40.909 Active 773574396 Problem Moderate persistent asthma with exacerbation J45.41 Active 569845566 Problem Moderate persistent asthma without complication J45.40 Active 962200999 Problem Elevated liver enzymes R74.8 Active 199362120 Problem Hyperlipidemia LDL goal <100 E78.5 Active 61135305 Problem Hypokalemia E87.6 Active 31839549 Problem Tremor, hereditary, 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 Active 900998609 Problem Abnormal glucose R73.09 Active 347497387 Problem Irritable bowel K58.9 Active 71213084 Problem Major depressive disorder, recurrent episode, moderate F33.1 Active 545938504 Problem Chronic migraine without aura with status migrainosus, not intractable G43.701 Active 701787471 ALLERGIES No Information ENCOUNTERS Encounter Location Date Diagnosis [facility] [address] [facility] [id number] [address] Mar, [facility] [id number] [address] 14 Feb, 2018 [facility] [address] [id number] [address] Feb, [facility] [address] [address] 0160 Feb, [facility] [id number] [place] [address] 81480- 3147 Jan, [facility] [id number] [place] [address] 42690- 3675 Dec, [facility] [id number] [place] [address] 18242- 1765 Dec, Other chronic pain G89.29 ; Pain in right shoulder M25.511 and Liver enzyme elevation R74.8 [facility] [id number] [place] [address] 20952- 5276 Nov, Other chronic pain G89.29 and Pain in right shoulder M25.511 [facility] [id number] [place] [address] 23887- 0758 October, [facility] [id number] [place] [address] 95882 -6653 October, Right shoulder pain, unspecified chronicity M25.511 [facility] [id number] [place] [address] 36638- 4176 Aug, Elevated liver enzymes R74.8 and Hyperlipidemia LDL goal < 100 E78.5 [facility] [id number] [place] [address] 41260- 3377 Aug, [facility] [id number] [place] [address] 26726- 7161 Jul, [facility] [id number] [place] [address] 30205- 1600 Jul, Intractable chronic migraine without aura and with status migrainosus G43.711 ; Fever, unspecified fever cause R50.9 and Elevated liver enzymes R74.8 [facility] [id number] [place] [address] 49171- 0769 Jun, Difficulty urinating R39.198 and Moderate persistent asthma with exacerbation J45.41 [place] [id number] [place] [address] 33719- 7343 Jun, [facility] [address] 53027- 6179 Jun, Moderate persistent asthma with exacerbation J45.41 [place] [address] 86387- 2539 May, Elevated liver enzymes R74.8 and Hyperlipidemia LDL goal < 100 E78.5 [place] [address] 18575- 1345 May, Elevated lipids E78.5 [place] [address] 20560- 2651 Apr, Elevated liver enzymes R74.8 [place] [address] 67663- 6326 Apr, Elevated liver enzymes R74.8 [place] [address] 85016- 1069 Apr, Superior glenoid labrum lesion of right shoulder, subsequent encounter S43.431D [place] [address] 90585- 5721 Apr, Hypokalemia E87.6 ; Major depressive disorder, recurrent episode, moderate F33.1 ; Other abnormalities of breathing R06.89 and Dyspnea, unspecified R06.[address] [facility] [id number] [place] [address] 20288 -3324 Mar, Moderate persistent asthma without complication J45.40 [place] [address] 75285- 6585 Mar, Impingement syndrome of right shoulder M75.41 [facility] [id number] [place] [address] 63133- 2965 Jan, [address] [address] 99757- 7651 Jan, Chronic migraine without aura with status migrainosus, not intractable G43.701 ; Essential hypertension I10 ; Irritable bowel K58.9 ; Primary insomnia F51.01 and Hypokalemia E87.6 [facility] [id number] [place] [address] 44029- 3442 Dec, [facility] [id number] [place] [address] 31449- 1389 Dec, Pain in right shoulder M25.511 [facility] [id number] [place] [address] 53958- 2074 Dec, Essential hypertension I10 [facility] [address] 48819- 9563 Dec, [facility] [id number] [place] [address] 89709- 7934 Nov, Essential hypertension I10 [facility] [address] 00144- 1650 Nov, Pain in right shoulder M25.511 [facility] [id number] [place] [address] 41601- 2588 Nov, Pain in right shoulder M25.511 [facility] [id number] [place] [address] 77841- 5425 October, [facility] [address] 11290- 6454 October, Pain in right shoulder M25.511 [facility] [id number] [place] [address] 15243- 7236 Sep, Arm pain, right M79.601 [facility] [id number] [place] [address] 61072- 4398 Sep, [facility] [id number] [place] [address] 90635- 0204 Sep, Abnormal glucose R73.09 and Elevated lipids E78.5 [place] [id number] [place] [address] 58900- 5518 Sep, Abnormal glucose R73.09 and Elevated lipids E78.5 [place] [id number] [place] [address] 07562- 5814 31 Aug, 2016 [facility] [id number] [place] [address] 73864- 3926 Aug, [address] [address] 27904- 4372 Aug, [facility] [id number] [place] [address] 83843- 7072 Aug, 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 ; Hypokalemia E87.6 ; Irritable bowel K58.9 ; Essential hypertension I10 ; Pain in right shoulder M25.511 ; Seizure disorder G40.909 and Screening for lipid disorders Z13.220 [place] [id number] [place] [address] 96186- 7029 Jul, Other chronic pain G89.29 and Pain in right shoulder M25.511 [place] [id number] [place] [address] 02516- 7771 14 Jul, 2016 Biceps muscle strain, right, subsequent encounter S46.111D [facility] [id number] [place] [address] 09049 -4978 Jul, Arm pain, right M79.601 [place] [id number] [place] [address] 51025- 7793 Jun, [place] [id number] [place] [address] 43590- 6724 Jun, Acute non-recurrent frontal sinusitis J01.10 [place] [id number] [place] [address] 69071- 3920 14 May, 2016 Generalized abdominal pain R10.84 ; Urinary tract infection without hematuria, site unspecified N39.0 ; Hypokalemia E87.6 ; Essential hypertension I10 ; Screening for lipid disorders Z13.220 ; Seizure R56.9 and Low back pain M54.5 [place] [place] [address] 34594- 7237 Apr, [facility] [address] 53269 -4185 Feb, [place] [address] 18885- 2994 Jan, [place] [address] 47804- 8491 Dec, 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 ; Hypokalemia E87.6 ; Irritable bowel K58.9 and Nausea R11.0 [facility] [address] 05591 -5226 Dec, Generalized abdominal pain R10.84 [address] [address] 57420- 2552 Nov, [facility] [address] 37086 -8997 Aug, Acute bronchitis J20.9 [address] [address] 73043- 7992 Aug, [place] [id number] [place] [address] 75793- 9310 08 Aug, 2015 Low back pain M54.5 ; Hypokalemia E87.6 ; Chronic migraine without aura with status migrainosus, not intractable G43.701 ; Tremor, hereditary, 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 ; Irritable bowel K58.9 ; Essential hypertension I10 and Seizure R56.9 [place] [id number] [place] [address] 07249- 3577 07 Aug, 2015 [address] [address] 45188- 8747 Jul, [place] [id number] [place] [address] 00982- 2869 03 Jul, 2015 Low back pain M54.5 ; Hypokalemia E87.6 ; Chronic migraine without aura with status migrainosus, not intractable G43.701 ; Tremor, hereditary, benign G25.0 ; Irritable bowel K58.9 ; Essential hypertension I10 and Seizure R56.9 [place] [id number] [place] [address] 38178- 1337 Jun, Hypokalemia E87.6 [place] [id number] [place] [address] 80238- 7885 15 Jun, 2015 ADD (attention deficit disorder) without hyperactivity F90.0 ; Generalized anxiety disorder F41.1 and Major depressive disorder, recurrent episode, moderate F33.1 [place] [id number] [place] [address] 86249- 6385 Jun, Low back pain M54.5 ; Hypokalemia E87.6 ; Chronic migraine without aura with status migrainosus, not intractable G43.701 ; Tremor, hereditary, benign G25.0 ; Irritable bowel K58.9 ; Essential hypertension I10 and Seizure R56.9 [place] [id number] [place] [address] 00639- 2818 Jun, [place] [id number] [place] [address] 78974- 9901 May, [place] [id number] [place] [address] 09210- 4218 30 May, 2015 Low back pain M54.5 ; Hypokalemia E87.6 ; Chronic migraine without aura with status migrainosus, not intractable G43.701 ; Tremor, hereditary, benign G25.0 ; Irritable bowel K58.9 ; Essential hypertension I10 ; Seizure R56.9 and Tinea capitis B35.0 [place] [id number] [place] [address] 27894- 7387 May, Low back pain M54.5 ; Hypokalemia E87.6 ; Chronic migraine without aura with status migrainosus, not intractable G43.701 ; Tremor, hereditary, benign G25.0 ; Irritable bowel K58.9 ; Essential hypertension I10 ; Seizure R56.9 ; Otitis media, left H66.92 and Dysuria 788.1 [address] [address] 18813- 1048 May, Tooth pain K08.8 [address] [address] 42439- 1561 May, [place] [address] 94187- 4540 May, Low back pain M54.5 ; Hypokalemia E87.6 ; Chronic migraine without aura with status migrainosus, not intractable G43.701 ; Tremor, hereditary, benign G25.0 ; Irritable bowel K58.9 and Essential hypertension I10 [address] [address] 08709- 4203 Apr, Low back pain M54.5 ; Hypokalemia E87.6 ; Chronic migraine without aura with status migrainosus, not intractable G43.701 ; Tremor, hereditary, benign G25.0 and Irritable bowel K58.9 [place] [id number] [place] [address] 42539- 3727 Apr, Low back pain M54.5 [place] [id number] [place] [address] 52956- 1547 Mar, [address] [address] 89356- 4930 Mar, Irritable bowel syndrome with diarrhea K58.0 [address] [address] 95754- 6793 Mar, [place] [address] 92658- 7127 Feb, [place] [id number] [place] [address] 62049- 0257 08 Feb, 2015 [facility] [id number] [place] [address] 45686- 6463 Feb, Irritable bowel syndrome 564.1 ; Lumbago 724.2 and Cervical pain (neck) 723.1 [facility] [id number] [place] [address] 90194- 3251 Dec, Major depressive disorder, recurrent episode, moderate 296.32 and Generalized anxiety disorder 300.02 [facility] [id number] [place] [address] 90216- 4350 Nov, [facility] [id number] [place] [address] 10208- 0319 Nov, Major depressive disorder, recurrent episode, moderate 296.32 [facility] [id number] [place] [address] 72397- 6207 Nov, Constipation 564.00 ; Nausea & vomiting 787.01 and Abdominal pain 789.00 [facility] [id number] [place] [address] 11595- 8598 Nov, [facility] [id number] [place] [address] 39296- 6279 October, [facility] [id number] [place] [address] 41813- 5641 October, [facility] [id number] [place] [address] 31905- 0801 October, [facility] [id number] [place] [address] 08935- 5760 October, [facility] [id number] [place] [address] 376839- 1512 Sep, Dysuria 788.1 [facility] [id number] [place] [address] 12583- 3138 Sep, [facility] [id number] [address]- 7041 30 Sep, 2014 [facility] [place] [facility] [address] [id number] [place] [address]- 6803 14 Sep, 2014 [facility] [place] [facility] [address] [id number] [place] [address]- 1506 13 Sep, 2014 [facility] [place] [facility] [address] [id number] [place] [address]- 6566 30 Aug, 2014 [facility] [place] [facility] [address] [id number] [place] [address]- 2411 30 Aug, 2014 [facility] [place] [facility] [address] [id number] [place] [address]- 2657 Aug, [facility] [place] [facility] [address] [id number] [place] [address]- 9148 Aug, [facility] [place] [facility] [address] [id number] [place] [address]- 4810 Aug, [facility] [place] [facility] [address] [id number] [place] [address]- 6138 18 Aug, 2014 [facility] [place] [facility] [address] [id number] [place] [address]- 3492 Aug, [facility] [place] [facility] [address] [id number] [place] [address]- 8300 Aug, [facility] [place] [facility] [address] [id number] [place] [address]- 4229 Aug, [facility] [place] [facility] [address] [id number] [place] [address]- 6296 Aug, [facility] [place] [facility] [address] [id number] [place] [address]- 5976 Jun, [facility] [place] [facility] [address] [id number] [place] [address]- 2546 Jun, [facility] [place] [facility] [address] [id number] [place] [address]- 9239 Jun, [facility] [place] [facility] [address] [id number] [place] [address]- 6200 Jun, [facility] [place] [facility] [address] [id number] [place] [address]- 3037 May, [facility] [place] [facility] [address] [id number] [place] 0546 May, [facility] [place] [facility] [address] [id number] [place] [address]- 8577 May, [facility] [place] [facility] [address] [id number] [place] [address]- 2026 May, [facility] [place] [facility] [address] [id number] [place] 7664 May, [facility] [place] [facility] [address] [id number] [place] [address]- 5321 May, [facility] [place] [facility] [address] [id number] [place] [address]- 8970 May, [facility] [place] [facility] [address] [id number] [place] [address]- 7514 May, [facility] [place] [facility] [address] [id number] [address]- 2797 Mar, [facility] [place] [facility] [address] [id number] [address]- 3050 Mar, [facility] [place] [facility] [address] [id number] [address]- 1351 Mar, [facility] [place] [facility] [address] [id number] [place] [address]- 3194 Mar, [facility] [place] [facility] [address] [id number] [place] [address]- 4999 Mar, [facility] [place] [facility] [address] [id number] 8344 Mar, [facility] [place] [facility] [address] [id number] [place] [address]- 6427 Mar, [facility] [place] [facility] [address] [id number] [place] [address]- 2012 14 Mar, 2014 [facility] [place] [facility] [address] [id number] [place] [address]- 6091 Mar, [facility] [place] [facility] [address] [id number] [place] [address]- 1659 Mar, [facility] [place] [facility] [address] [id number] [place] [address]- 5748 Mar, [facility] [place] [facility] [address] [id number] [place] [address]- 3332 Mar, [facility] [place] [facility] [address] [id number] [place] [address]- 3873 Feb, [facility] [place] [facility] [address] [id number] [place] [address]- 7738 24 Feb, 2014 [facility] [place] [facility] [address] [id number] [place] [address]- 3373 Feb, [facility] [place] [facility] [address] [id number] [place] [address]- 7550 Feb, [facility] [place] [facility] [address] [facility] [id number] [place] [address]- 4644 Feb, [facility] [place] [facility] [address] [id number] [place] [address]- 1044 Feb, [facility] [place] [facility] [address] [id number] [address]- 9100 Jan, [facility] [place] [facility] [address] [id number] [place] [address]- 2678 Jan, [facility] [place] [facility] [address] [facility] [id number] [place] [address]- 3224 Jan, [facility] [place] [facility] [address] [id number] [place] [address]- 9786 Jan, [facility] [place] [facility] [address] [id number] [place] [address]- 4642 Jan, [facility] [place] [facility] [address] [id number] [place] [address]- 0551 Jan, [facility] [place] [facility] [address] [id number] [place] [address]- 3900 Jan, [facility] [place] [facility] [address] [id number] [place] [address]- 8340 Jan, [facility] [place] [facility] [address] [id number] [place] [address]- 3791 Dec, [facility] [place] [facility] [address] [id number] [place] [address]- 3051 Dec, [facility] [place] [facility] [address] [id number] [place] [address]- 1354 Dec, [facility] [place] [facility] [address] [id number] [place] [address]- 3464 Dec, [facility] [place] [facility] [address] [id number] [place] [address]- 9409 Dec, [facility] [place] [facility] [address] [id number] [place] [address]- 0897 Dec, [facility] [place] [facility] [address] [id number] [place] [address]- 2625 Dec, [facility] [place] [facility] [address] [id number] [place] [address]- 8063 Dec, [facility] [place] [facility] [address] [id number] [place] [address]- 8172 October, [facility] [place] [facility] [address] [id number] [place] [address]- 8337 October, [facility] [place] [facility] [address] [id number] [place] [address]- 7218 Sep, [facility] [place] [facility] [address] [id number] [place] [address]- 7607 Sep, [facility] [place] [facility] [address] [id number] [place] [address]- 9240 Sep, [facility] [place] [facility] [address] [id number] [place] [address]- 0423 Sep, [facility] [place] [facility] [address] [id number] [place] [address]- 5078 Sep, [facility] [place] [facility] [address] [id number] [place] [address]- 2369 Sep, [facility] [place] [facility] [address] [id number] [place] [address]- 1365 Sep, [facility] [place] [facility] [address] [id number] [place] [address]- 8179 Sep, [facility] [place] [facility] [address] [id number] [place] [address]- 3006 Sep, [facility] [place] [facility] [address] [id number] [place] [address]- 2267 Sep, [facility] [place] [facility] [address] [id number] [place] [address]- 7899 Sep, [facility] [place] [facility] [address] [id number] [place] [address]- 5030 Sep, [facility] [place] [facility] [address] [id number] [place] [address]- 2076 Aug, [facility] [place] [facility] [address] [id number] [place] [address]- 4165 Aug, [facility] [place] [facility] [address] [id number] [place] [address]- 5013 Aug, [facility] [place] [facility] [address] [id number] [place] [address] Jun, [facility] [place] [facility] [address] [id number] [place] [address] Jun, [facility] [place] [facility] [address] [id number] [place] [address] 14 Jun, 2013 [facility] [address] [id number] [place] [address] Jun, [facility] [place] [facility] [address] [id number] [place] [address] Jun, [facility] [address] [id number] [place] [address] Jun, [facility] [place] [facility] [address] [id number] [place] [address] Jun, [facility] [place] [facility] [address] [id number] [place] [address] Jun, [facility] [place] [facility] [address] [id number] [place] [address] Jun, [facility] [address] [id number] [place] [address] Jun, [facility] [place] [facility] [address] [id number] [place] [address] May, [facility] [place] [facility] [address] [id number] [place] [address] May, [facility] [place] [facility] [address] [id number] [place] [address] May, [facility] [place] [facility] [address] [id number] [place] [address]- [address] May, [facility] [place] [facility] [address] [id number] [place] [address] Apr, [facility] [place] [facility] [address] [id number] [place] [address] Apr, [facility] [place] [facility] [address] [id number] [place] [address] Apr, [facility] [place] [facility] [address] [id number] [place] [address] Apr, [facility] [place] [facility] [address] [id number] [place] [address]- [address] Apr, [facility] [place] [facility] [address] [id number] [place] [address] Apr, [facility] [place] [facility] [address] [id number] [place] [address] Apr, [facility] [place] [facility] [address] [id number] [place] [address] Apr, [facility] [place] [facility] [address] [id number] [place] [address] Mar, [facility] [place] [facility] [address] [id number] [place] [address] Mar, [facility] [place] [facility] [address] [id number] [place] [address] Mar, [facility] [place] [facility] [address] [id number] [place] [address] Mar, [facility] [place] [facility] [address] [id number] [place] [address] Mar, [facility] [place] [facility] [address] [id number] [place] [address] Feb, [facility] [place] [facility] [address] [id number] [place] [address] Feb, [facility] [place] [facility] [address] [id number] [address] Feb, [facility] [place] [facility] [address] [id number] [place] [address] Feb, [facility] [place] [facility] [address] [id number] [place] [address] Feb, [facility] [place] [facility] [address] [id number] [place] [address] Jan, [facility] [place] [facility] [address] [id number] [place] [address] Jan, [facility] [address] [id number] [place] [address] Nov, [facility] [address] [id number] [place] [address] Nov, [facility] [address] [id number] [place] [address] Nov, [facility] [address] [id number] [place] [address] Nov, [facility] [address] [id number] [place] [address] October, [facility] [address] [id number] [place] [address] Sep, [facility] [address] [id number] [place] [address] Aug, [facility] [address] [id number] [place] [address] Aug, [facility] [address] [id number] [place] [address] Aug, [facility] [address] [id number] [place] [address] Aug, [facility] [address] [id number] [place] [address] Jul, [facility] [address] [id number] [place] [address] Jun, [facility] [place] [facility] [address] [id number] [place] [address] Jun, [facility] [place] [facility] [address] [id number] [place] [address] May, [facility] [address] [id number] [place] [address] May, [facility] [address] [id number] [place] [id number] Mar, 2011 [facility] [place] [facility] [address] [id number] [place] [address] Mar, [facility] [place] [facility] [address] [id number] [place] [address] Mar, [facility] [address] [id number] [place] [address] Mar, [facility] [place] [facility] [address] [id number] [place] [address] Mar, [facility] [address] [id number] [place] [address] Mar, [facility] [place] [facility] [address] [id number] [place] [address] Mar, [facility] [place] [facility] [address] [id number] [place] [address]- [address] Mar, [facility] [address] [id number] [place] [address] Mar, [facility] [place] [facility] [address] [id number] [place] [address] Mar, [facility] [place] [facility] [address] [id number] [address] Mar, [facility] [place] [facility] [address] [id number] [place] [address] Mar, [facility] [place] [facility] [address] [id number] [place] [address] 17 Mar, 2012 [facility] [place] [facility] [address] [id number] [place] [address]- [address] 15 Mar, 2012 [facility] [place] [facility] [address] [id number] [place] [address]- [address] 15 Mar, 2012 [facility] [place] [facility] [address] [id number] [place] [address] 15 Mar, 2012 [facility] [place] [facility] [address] [id number] [place] [address] 15 Mar, 2012 [facility] [place] [facility] [address] [id number] [place] [address] Mar, [facility] [place] [facility] [address] [id number] [place] [address] Mar, [facility] [place] [facility] [address] [id number] [place] [address] Mar, [facility] [place] [facility] [address] [id number] [place] [address]- [address] 08 Mar, 2012 [facility] [place] [facility] [address] [id number] [place] [address] 03 Mar, 2012 [facility] [place] [facility] [address] [facility] [id number] [place] [address] Mar, [facility] [place] [facility] [address] [id number] [address] 19 Feb, 2012 [facility] [place] [facility] [address] [id number] [place] [address]- [address] 18 Sep2011 [facility] [place] [facility] [address] [facility] [id number] [address]- 8585 17 Sep2011 [facility] [place] [facility] [address] [facility] [id number] [place] [address] 14 Sep2011 [facility] [place] [facility] [address] [id number] [place] [address] 14 Sep, 2011 [facility] [place] [facility] [address] [id number] [place] [address] 12 Sep2011 [facility] [place] [facility] [address] [id number] [place] [address] 10 Feb, 2012 [facility] [place] [facility] [address] [facility] [id number] [place] [address] 31 Jan, 2012 [facility] [place] [facility] [address] [id number] [place] [address] Jan, [facility] [place] [facility] [address] [id number] [place] [address] Jan, [facility] [place] [facility] [address] [id number] [place] [address]- [address] Jan, [facility] [place] [facility] [address] [id number] [place] [address] Jan, [facility] [place] [facility] [address] [id number] [place] [address]- [address] Jan, [facility] [place] [facility] [address] [id number] [place] [address] Jan, [facility] [place] [facility] [address] [id number] [place] [address]- [address] Jan, [facility] [place] [facility] [address] [id number] [place] [address]- [address] Jan, [facility] [place] [facility] [address] [id number] [place] [address]- [address] Jan, [facility] [place] [facility] [address] [id number] [place] [address] Dec, [facility] [place] [facility] [address] [id number] [place] [address]- [address] Dec, [facility] [place] [facility] [address] [id number] [place] [address]- 69[address] Dec, [facility] [place] [facility] [address] [id number] [place] [address]- 8581 Dec, [facility] [place] [facility] [address] [id number] [place] [address]- [address] Dec, [facility] [place] [facility] [address] [id number] [place] [address]- [address] Dec, [facility] [place] [facility] [address] [id number] [place] [address]- [address] 16 Dec, 2011 [facility] [place] [facility] [address] [facility] [id number] [place] [address] 14 Dec, 2011 [facility] [address] [facility] [id number] [place] [address] Dec, [facility] [address] [facility] [id number] [place] [address] Dec, [facility] [address] [facility] [id number] [place] [address] 06 Dec, 2011 [facility] [address] [facility] [id number] [place] [address]- [address] 29 Nov, 2011 [facility] [address] [facility] [id number] [place] [address]- [address] Nov, [facility] [address] [facility] [id number] [place] [address] Nov, [facility] [id number] [address] Nov, [facility] [address] [id number] [address] Nov, [facility] [id number] [address] Nov, [facility] [address] [id number] [address] Nov, [facility] [address] [id number] [address] 13 Nov, 2011 [facility] [address] [facility] [id number] [place] [address] Nov, [facility] [id number] [address] 05 Nov, 2011 [facility] [address] [id number] [address] October, IMMUNIZATIONS No Known Immunizations SOCIAL HISTORY Never Assessed REASON FOR VISIT med refill PLAN OF CARE VITAL SIGNS MEDICATIONS Medication [...]
--- OUTSIDE RECORDS SUMMARY | 2018-08-12 15:09 | XMS REPORT ---
Author Author SCARLET ALVES Organization [facility] Address [address] [place] [address] Care Team Providers Care Fringe Knotter Name Role Phone SCARLET ALVES Unavailable PROBLEMS Type Condition ICD9-CM Code QOU09-VN Code Onset Dates Condition Status SNOMED Code Problem Essential hypertension I10 Active 81460701 Problem Other chronic pain G89.29 Active 78786715 Problem 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 Active 55596698 Problem Other chronic pain G89.29 Active 02711935 Problem Intractable chronic migraine without aura and with status migrainosus G43.711 Active 883187237 Problem Primary insomnia F51.01 Active 2848360 Problem Seizure disorder G40.909 Active 658947168 Problem Moderate persistent asthma with exacerbation J45.41 Active 264654543 Problem Moderate persistent asthma without complication J45.40 Active 826860920 Problem Elevated liver enzymes R74.8 Active 960438214 Problem Hyperlipidemia LDL goal <100 E78.5 Active 67953816 Problem Hypokalemia E87.6 Active 30185932 Problem Tremor, hereditary, benign G25.0 Active 792821283 Problem Abnormal glucose R73.09 Active 138513172 Problem Irritable bowel K58.9 Active 56906442 Problem Major depressive disorder, recurrent episode, moderate F33.1 Active 668981564 Problem Chronic migraine without aura with status migrainosus, not intractable G43.701 Active 643236447 ALLERGIES No Information ENCOUNTERS Encounter Location Date Diagnosis [facility] [address] [facility] [id number] [address] Mar, [facility] [address] [address] Mar, [facility] [address] [id number] [address] Feb, [facility] [address] [id number] [address] Feb, [facility] [id number] [place] [address] 72191- 0500 Feb, [facility] [id number] [place] [address] 88162- 8725 Jan, [facility] [id number] [place] [address] 43964- 1663 Dec, [facility] [id number] [place] [address] 03965- 4915 Dec, Other chronic pain G89.29 ; Pain in right shoulder M25.511 and Liver enzyme elevation R74.8 [place] [facility] [id number] [place] [address] 67246- 9547 Nov, Other chronic pain G89.29 and Pain in right shoulder M25.511 [facility] [id number] [place] [address] 01199- 2485 October, [facility] [id number] [place] [address] 67937 -4241 October, Right shoulder pain, unspecified chronicity M25.511 [facility] [id number] [place] [address] 05355- 4970 Aug, Elevated liver enzymes R74.8 and Hyperlipidemia LDL goal < [address] [facility] [id number] [place] [address] 03691- 2012 Aug, [facility] [id number] [place] [address] 56123- 4829 Jul, [facility] [id number] [place] [address] 41635- 2313 Jul, Intractable chronic migraine without aura and with status migrainosus G43.711 ; Fever, unspecified fever cause R50.9 and Elevated liver enzymes R74.8 [facility] [id number] [place] [address] 65117- 9696 Jun, Difficulty urinating R39.198 and Moderate persistent asthma with exacerbation J45.41 [facility] [id number] [place] [address] 67429- 2459 Jun, [facility] [id number] [place] [address] 29809- 7355 Jun, Moderate persistent asthma with exacerbation J45.41 [place] [address] 17830- 1228 May, Elevated liver enzymes R74.8 and Hyperlipidemia LDL goal < 100 E78.5 [facility] [address] 85715- 8656 May, Elevated lipids E78.5 [place] [facility] [address] 95843- 5601 Apr, Elevated liver enzymes R74.8 [place] [address] 45219- 6604 Apr, Elevated liver enzymes R74.8 [place] [facility] [address] 24304- 8037 Apr, Superior glenoid labrum lesion of right shoulder, subsequent encounter S43.431D [facility] [id number] [place] [address] 22001- 5911 Apr, Hypokalemia E87.6 ; Major depressive disorder, recurrent episode, moderate F33.1 ; Other abnormalities of breathing R06.89 and Dyspnea, unspecified R06.00 [facility] [id number] [place] [address] 33212 -7760 Mar, Moderate persistent asthma without complication J45.40 [facility] [id number] [place] [address] 77557- 8946 Mar, Impingement syndrome of right shoulder M75.41 [facility] [id number] [place] [address] 31308- 8534 Jan, [facility] [id number] [place] [address] 62506- 5988 Jan, Chronic migraine without aura with status migrainosus, not intractable G43.701 ; Essential hypertension I10 ; Irritable bowel K58.9 ; Primary insomnia F51.[address] [facility] [id number] [place] [address] 10508- 2131 Dec, [facility] [id number] [place] [address] 72665- 8031 Dec, Pain in right shoulder M25.511 [facility] [id number] [place] [address] 41409- 5194 Dec, Essential hypertension I10 [facility] [id number] [place] [address] 18942- 0461 Dec, [facility] [id number] [place] [address] 95264- 9599 Nov, Essential hypertension I10 [facility] [id number] [place] [address] 95682- 6117 14 Nov, 2016 Pain in right shoulder M25.511 [facility] [id number] [place] [address] 13569- 5100 Nov, Pain in right shoulder M25.511 [facility] [id number] [place] [address] 88464- 8498 October, [facility] [id number] [place] [address] 82101- 1551 October, Pain in right shoulder M25.511 [facility] [id number] [place] [address] 32059- 6862 Sep, Arm pain, right M79.601 [facility] [id number] [place] [address] 81090- 0277 Sep, [facility] [id number] [place] [address] 34877- 5193 Sep, Abnormal glucose R73.09 and Elevated lipids E78.5 [place] [id number] [place] [address] 59707- 0673 Sep, Abnormal glucose R73.09 and Elevated lipids E78.5 [facility] [id number] [place] [address] 32574- 0111 Aug, [place] [address] 89090- 5600 Aug, [facility] [id number] [place] [address] 34825- 2472 Aug, [place] [address] 64296- 8707 Aug, 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 ; Hypokalemia E87.6 ; Irritable bowel K58.9 ; Essential hypertension I10 ; Pain in right shoulder M25.511 ; Seizure disorder G40.909 and Screening for lipid disorders Z13.220 [place] [id number] [place] [address] 05950- 3237 28 Jul, 2016 Other chronic pain G89.29 and Pain in right shoulder M25.511 [facility] [id number] [place] [address] 96421- 9366 14 Jul, 2016 Biceps muscle strain, right, subsequent encounter S46.111D [facility] [id number] [place] [address] 64973 -3560 08 Jul, 2016 Arm pain, right M79.601 [facility] [id number] [place] [address] 87239- 4232 Jun, [facility] [id number] [place] [address] 55978- 6245 Jun, Acute non-recurrent frontal sinusitis J01.10 [facility] [id number] [place] [address] 07806- 7783 May, Generalized abdominal pain R10.84 ; Urinary tract infection without hematuria, site unspecified N39.0 ; Hypokalemia E87.6 ; Essential hypertension I10 ; Screening for lipid disorders Z13.220 ; Seizure R56.9 and Low back pain M54.5 [place] [id number] [place] [address] 20150- 9831 Apr, [facility] [address] 39935 -8767 Feb, [place] [id number] [place] [address] 96312- 0062 Jan, [place] [address] 44627- 0168 Dec, 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 ; Hypokalemia E87.6 ; Irritable bowel K58.9 and Nausea R11.0 [facility] [place] [id number] [place] [address] 62716 -6796 Dec, Generalized abdominal pain R10.84 [place] [id number] [place] [address] 30303- 2030 Nov, [facility] [place] [id number] [place] [address] 88742 -4547 Aug, Acute bronchitis J20.9 [place] [id number] [place] [address] 63320- 8810 Aug, [place] [id number] [place] [address] 43710- 4707 08 Aug, 2015 Low back pain M54.5 ; Hypokalemia E87.6 ; Chronic migraine without aura with status migrainosus, not intractable G43.701 ; Tremor, hereditary, benign G25.0 ; Irritable bowel K58.9 ; Essential hypertension I10 and Seizure R56.9 [place] [id number] [place] [address] 37695- 3791 07 Aug, 2015 [place] [facility] [id number] [place] [address] 27594- 3707 Jul, [place] [facility] [address] 08925- 5504 Jul, Low back pain M54.5 ; Hypokalemia E87.6 ; Chronic migraine without aura with status migrainosus, not intractable G43.701 ; Tremor, hereditary, benign G25.0 ; Irritable bowel K58.9 ; Essential hypertension I10 and Seizure R56.9 [place] [id number] [place] [address] 69889- 3866 Jun, Hypokalemia E87.6 [place] [address] 16778- 6046 Jun, ADD (attention deficit disorder) without hyperactivity F90.0 ; Generalized anxiety disorder F41.1 and Major depressive disorder, recurrent episode, moderate F33.1 [place] [facility] [id number] [place] [address] 12932- 0929 Jun, Low back pain M54.5 ; Hypokalemia E87.6 ; Chronic migraine without aura with status migrainosus, not intractable G43.701 ; Tremor, hereditary, benign G25.0 ; Irritable bowel K58.9 ; Essential hypertension I10 and Seizure R56.9 [place] [id number] [place] [address] 29895- 8018 Jun, [place] [id number] [place] [address] 91252- 4506 May, [place] [facility] [id number] [place] [address] 90305- 5601 May, Low back pain M54.5 ; Hypokalemia E87.6 ; Chronic migraine without aura with status migrainosus, not intractable G43.701 ; Tremor, hereditary, benign G25.0 ; Irritable bowel K58.9 ; Essential hypertension I10 ; Seizure R56.9 and Tinea capitis B35.0 [place] [address] 36156- 2291 17 May, 2015 Low back pain M54.5 ; Hypokalemia E87.6 ; Chronic migraine without aura with status migrainosus, not intractable G43.701 ; Tremor, hereditary, benign G25.0 ; Irritable bowel K58.9 ; Essential hypertension I10 ; Seizure R56.9 ; Otitis media, left H66.92 and Dysuria 788.1 [place] [address] 95502- 5241 14 May, 2015 Tooth pain K08.8 [place] [address] 90676- 0600 May, [place] [address] 86750- 6154 May, Low back pain M54.5 ; Hypokalemia E87.6 ; Chronic migraine without aura with status migrainosus, not intractable G43.701 ; Tremor, hereditary, benign G25.0 ; Irritable bowel K58.9 and Essential hypertension I10 [place] [id number] [place] [address] 44757- 9906 Apr, Low back pain M54.5 ; Hypokalemia E87.6 ; Chronic migraine without aura with status migrainosus, not intractable G43.701 ; Tremor, hereditary, benign G25.0 and Irritable bowel K58.9 [place] [id number] [place] [address] 19298- 5525 Apr, Low back pain M54.5 [place] [address] 68353- 2146 Mar, [place] [address] 73460- 4135 Mar, Irritable bowel syndrome with diarrhea K58.0 [place] [facility] [address] 05089- 9942 Mar, [place] [address], [place] [address]- 4042 Feb, [facility] [id number] [place] [address] 86645- 6335 Feb, [facility] [id number], [place] [address]- 3867 Feb, Irritable bowel syndrome 564.1 ; Lumbago 724.2 and Cervical pain (neck) 723.1 [facility] [id number] [place] [address] 82879- 1628 Dec, Major depressive disorder, recurrent episode, moderate 296.32 and Generalized anxiety disorder 300.02 [facility] [id number] [place] [address] 60314- 1849 Nov, [facility] [id number] [place] [address] 81162- 9882 Nov, Major depressive disorder, recurrent episode, moderate 296.32 [facility] [address] [place] [address] 97877- 5437 Nov, Constipation 564.00 ; Nausea & vomiting 787.01 and Abdominal pain 789.00 [facility] [address], [place] [address]- 5690 Nov, [facility] [address], [place] [address]- 5873 October, [facility] [address], [place] [address]- 7645 October, [facility] [address] [place] [address] 24716- 1956 October, [facility] [id number] [place] [address] 999369- 3596 October, [facility] [address], [place] [address]- 6328 Sep, Dysuria 788.1 [facility] [address] [place] [address]- 3683 30 Sep, 2014 [facility] [place] [facility] [address] [id number] [place] [address]- 2405 30 Sep, 2014 [facility] [place] [facility] [address] [id number] [place] [address]- 1146 14 Sep, 2014 [facility] [place] [facility] [address] [id number] [place] [address]- 4721 13 Sep, 2014 [facility] [place] [facility] [address] [id number] [place] [address]- 3178 30 Aug, 2014 [facility] [place] [facility] [address] [id number] [place] [address]- 4909 30 Aug, 2014 [facility] [place] [facility] [address] [id number] [place] [address]- 8611 Aug, [facility] [place] [facility] [address] [id number] [place] [address]- 9067 Aug, [facility] [place] [facility] [address] [id number] [place] [address]- 3566 Aug, [facility] [place] [facility] [address] [id number] [place] [address]- 2082 Aug, [facility] [place] [facility] [address] [id number] [place] [address]- 7757 Aug, [facility] [place] [facility] [address] [id number] [place] [address]- 6825 Aug, [facility] [place] [facility] [address] [id number] [place] [address]- 7673 Aug, [facility] [place] [facility] [address] [id number] [place] [address]- 0152 Aug, [facility] [place] [facility] [address] [id number] [place] [address]- 3616 Jun, [facility] [place] [facility] [address] [id number] [place] 2430 Jun, [facility] [place] [facility] [address] [id number] [place] [address]- 0314 Jun, [facility] [place] [facility] [address] [id number] [place] [address]- 9578 Jun, [facility] [place] [facility] [address] [id number] [place] [address]- 9670 May, [facility] [place] [facility] [address] [id number] [place] [address]- 4222 May, [facility] [place] [facility] [address] [id number] [place] [address]- 4800 May, [facility] [place] [facility] [address] [id number] [place] [address]- 6060 May, [facility] [place] [facility] [address] [id number] [place] [address]- 6029 May, [facility] [place] [facility] [address] [id number] [place] [address]- 6432 May, [facility] [place] [facility] [address] [id number] [place] [address]- 7354 May, [facility] [place] [facility] [address] [id number], [place] [address]- 3216 May, [facility] [place] [facility] [address] [id number], [place] [address]- 7264 Mar, [facility] [place] [facility] [address] [id number], [place] [address]- 1257 Mar, [facility] [place] [facility] [address] [id number] [place] [address]- 1489 Mar, [facility] [place] [facility] [address] [id number] [place] [address]- 5911 Mar, [facility] [place] [facility] [address] [id number], [place] [address]- 3238 Mar, [facility] [place] [facility] [address] [id number], [place] [address]- 0225 Mar, [facility] [place] [facility] [address] [id number] [place] [address]- 8675 Mar, [facility] [place] [facility] [address] [id number] [place] [address]- 5713 Mar, [facility] [place] [facility] [address] [id number] [place] [address]- 8221 Mar, [facility] [place] [facility] [address] [id number] [place] [address]- 4276 Mar, [facility] [place] [facility] [address] [id number] [place] [address]- 3458 Mar, [facility] [place] [facility] [address] [id number] [place] [address]- 0487 Mar, [facility] [place] [facility] [address] [id number] [place] [address]- 6041 Feb, [facility] [place] [facility] [address] [id number] [place] [address]- 2496 24 Feb, 2014 [facility] [place] [facility] [address] [id number] [place] [address]- 1611 Feb, [facility] [place] [facility] [address] [id number] [place] [address]- 3310 Feb, [facility] [place] [facility] [address] [id number] [place] [address]- 4371 Feb, [facility] [place] [facility] [address] [id number], [place] [address]- 3897 Feb, [facility] [place] [facility] [address] [id number] [place] [address]- 8981 Jan, [facility] [place] [facility] [address] [id number] [place] [address]- 1600 Jan, [facility] [place] [facility] [address] [facility] [id number] [place] [address]- 6892 Jan, [facility] [place] [facility] [address] [id number] [place] [address]- 0732 Jan, [facility] [place] [facility] [address] [id number] [facility] [place] [address]- 2919 Jan, [facility] [place] [facility] [address] [id number] [place] [address]- 9385 Jan, [facility] [place] [facility] [address] [id number] [place] [address]- 9115 Jan, [facility] [place] [facility] [address] [id number] [place] [address]- 2911 Jan, [facility] [place] [facility] [address] [id number] [place] [address]- 1336 Dec, [facility] [place] [facility] [address] [id number] [place] [address]- 7419 Dec, [facility] [place] [facility] [address] [id number] [place] [address]- 4901 Dec, [facility] [place] [facility] [address] [id number] [place] [address]- 7034 Dec, [facility] [place] [facility] [address] [id number] [place] [address]- 1116 Dec, [facility] [place] [facility] [address] [id number] [place] [address]- 9452 Dec, [facility] [place] [facility] [address] [id number] [place] [address]- 0017 Dec, [facility] [place] [facility] [address] [id number] [place] [address]- 0328 Dec, [facility] [place] [facility] [address] [id number] [place] [address]- 1874 October, [facility] [place] [facility] [address] [id number] [place] [address]- 0961 October, [facility] [place] [facility] [address] [id number] [place] [address]- 7463 Sep, [facility] [place] [facility] [address] [id number] [place] [address]- 1655 Sep, [facility] [place] [facility] [address] [id number] [place] [address]- 9617 Sep, [facility] [place] [facility] [address] [id number] [place] [address]- 1408 Sep, [facility] [place] [facility] [address] [id number] [place] [address]- 8029 Sep, [facility] [place] [facility] [address] [id number] [place] [address]- 8363 Sep, [facility] [place] [facility] [address] [id number] [place] [address] Sep, [facility] [place] [facility] [address] [id number] [place] [address] Sep, [facility] [place] [facility] [address] [id number] [place] [address] Sep, [facility] [place] [facility] [address] [id number] [place] [address] Sep, [facility] [place] [facility] [address] [id number] [place] [address] Sep, [facility] [place] [facility] [address] [id number] [place] [address] Sep, [facility] [place] [facility] [address] [id number] [place] [address] Aug, [facility] [place] [facility] [address] [id number] [place] [address] Aug, [facility] [place] [facility] [address] [id number] [place] [address] Aug, [facility] [place] [facility] [address] [id number] [place] [address] Jun, [facility] [place] [facility] [address] [id number] [place] [address] 14 Jun, 2013 [facility] [address] [id number] [place] [address] 14 Jun, 2013 [facility] [place] [facility] [address] [id number] [place] [address] Jun, [facility] [address] [id number] [place] [address] Jun, [facility] [place] [facility] [address] [id number] [place] [address] Jun, [facility] [place] [facility] [address] [id number] [place] [address] Jun, [facility] [place] [facility] [address] [id number] [place] [address] Jun, [facility] [address] [id number] [place] [address] Jun, [facility] [place] [facility] [address] [id number] [place] [address] Jun, [facility] [place] [facility] [address] [id number] [place] [address] May, [facility] [place] [facility] [address] [id number] [place] [address] May, [facility] [place] [facility] [address] [id number] [place] [address] May, [facility] [place] [facility] [address] [id number] [place] [address] May, [facility] [place] [facility] [address] [id number] [place] [address] Apr, [facility] [place] [facility] [address] [id number] [place] [address] Apr, [facility] [place] [facility] [address] [id number] [place] [address] Apr, [facility] [place] [facility] [address] [id number] [place] [address] Apr, [facility] [place] [facility] [address] [id number] [place] [address] Apr, [facility] [place] [facility] [address] [id number] [place] [address] Apr, [facility] [place] [facility] [address] [id number] [place] [address] Apr, [facility] [place] [facility] [address] [id number] [place] [address] Apr, [facility] [place] [facility] [address] [id number] [place] [address] Mar, [facility] [place] [facility] [address] [id number] [place] [address] Mar, [facility] [place] [facility] [address] [id number] [place] [address] Mar, [facility] [place] [facility] [address] [id number] [place] [address] Mar, [facility] [place] [facility] [address] [id number] [place] [address] Mar, [facility] [place] [facility] [address] [id number] [place] [address] Feb, [facility] [place] [facility] [address] [id number], [place] [address] Feb, [facility] [place] [facility] [address] [id number] [place] [address] 05 Feb, 2013 [facility] [place] [facility] [address] [id number] [place] [address] Feb, [facility] [place] [facility] [address] [id number] [place] [address] Feb, [facility] [place] [facility] [address] [id number] [place] [address] Jan, [facility] [address] [id number] [place] [address] Jan, [facility] [place] [facility] [address] [id number] [place] [address] Nov, [facility] [place] [facility] [address] [id number] [place] [address] Nov, [facility] [place] [facility] [address] [id number] [place] [address] Nov, [facility] [place] [facility] [address] [id number] [place] [address] Nov, [facility] [place] [facility] [address] [id number] [place] [address] October, [facility] [place] [facility] [address] [id number] [place] [address] Sep, [facility] [place] [facility] [address] [id number] [place] [address] Aug, [facility] [place] [facility] [address] [id number] [place] [address] Aug, [facility] [place] [facility] [address] [id number] [place] [address] Aug, [facility] [place] [facility] [address] [id number] [place] [address] Aug, [facility] [place] [facility] [address] [id number] [place] [address] Jul, [facility] [place] [facility] [address] [id number] [place] [address] Jun, [facility] [place] [facility] [address] [id number] [place] [address] Jun, [facility] [place] [facility] [address] [id number] [place] [address] May, [facility] [place] [facility] [address] [id number] [place] [address] May, [facility] [place] [facility] [address] [id number] [place] [id number] Mar, [facility] [place] [facility] [address] [id number] [place] [address] Mar, [facility] [address] [id number] [place] [address] Mar, [facility] [place] [facility] [address] [id number] [place] [address] Mar, [facility] [address] [id number] [place] [address] Mar, [facility] [place] [facility] [address] [id number] [place] [address] Mar, [facility] [place] [facility] [address] [id number] [place] [address] Mar, [facility] [address] [id number] [place] [address] Mar, [facility] [place] [facility] [address] [id number] [place] [address] Mar, [facility] [address] [id number] [place] [address] Mar, [facility] [place] [facility] [address] [id number] [place] [address] Mar, [facility] [address] [id number], [place] [address] Mar, [facility] [place] [facility] [address] [id number] [place] [address] Mar, [facility] [place] [facility] [address] [id number] [place] [address]295 Mar, [facility] [place] [facility] [address] [id number], [place] [address] 15 Mar, 2012 [facility] [place] [facility] [address] [id number] [place] [address] 15 Mar, 2012 [facility] [place] [facility] [address] [id number] [place] [address] 8291 15 Mar, 2012 [facility] [place] [facility] [address] [id number] [place] [address] 89[address] Mar, [facility] [place] [facility] [address] [id number] [place] [address] Mar, [facility] [place] [facility] [address] [id number] [place] [address] 31[address] Mar, [facility] [place] [facility] [address] [id number] [place] [address] Mar, [facility] [place] [facility] [address] [facility] [id number] [place] [address] Mar, [facility] [place] [facility] [address] [id number], [place] [address] Mar, [facility] [place] [facility] [address] [id number] [place] [address] 19 Sep2011 [facility] [place] [facility] [address] [id number], [place] [address]- 3[address] 18 Sep2011 [facility] [place] [facility] [address] [facility] [id number], [place] [address]- [address] 17 Sep2011 [facility] [place] [facility] [address] [id number], [place] [address]- [address] 14 Sep, 2011 [facility] [place] [facility] [address] [id number], [place] [address]- [address] 14 Sep2011 [facility] [place] [facility] [address] [id number], [place] [address]- 0543 12 Sep2011 [facility] [place] [facility] [address] [facility] [id number], [place] [address]- [address] 10 Sep, 2011 [facility] [place] [facility] [address] [id number], [place] [address] Jan, [facility] [place] [facility] [address] [id number] [place] [address] 30 Jan, 2012 [facility] [place] [facility] [address] [id number] [place] [address] Jan, [facility] [place] [facility] [address] [id number] [place] [address]196 Jan, [facility] [place] [facility] [address] [id number] [place] [address] 8942 Jan, [facility] [place] [facility] [address] [id number] [place] [address] 9889 Jan, [facility] [place] [facility] [address] [id number] [place] [address]- 6[address] Jan, [facility] [place] [facility] [address] [id number] [place] [address]- 96[address] 16 Jan, 2012 [facility] [place] [facility] [address] [id number] [place] [address]- 1470 Jan, [facility] [place] [facility] [address] [id number] [place] [address]- 0275 Jan, [facility] [place] [facility] [address] [id number] [place] [address] 23[address] Dec, [facility] [place] [facility] [address] [id number] [place] [address] 7630 Dec, [facility] [place] [facility] [address] [id number] [place] [address] Dec, [facility] [place] [facility] [address] [id number] [place] [address] 3519 Dec, [facility] [place] [facility] [address] [id number] [place] [address]- 6436 Dec, [facility] [place] [facility] [address] [id number] [place] [address]003 17 Dec, 2011 [facility] [place] [facility] [address] [id number] [place] [address]- 4415 16 Dec, 2011 [facility] [place] [facility] [address] [id number] [place] [address]- 0826 14 Dec, 2011 [facility] [place] [facility] [address] [id number] [facility] [place] [address] 12 Dec, 2011 [facility] [place] [facility] [address] [id number] [place] [address]- 6598 12 Dec, 2011 [facility] [place] [facility] [address] [id number] [place] [address]- [address] 06 Dec, 2011 [facility] [place] [facility] [address] [id number] [place] [address]- 480[address] 29 Nov, 2011 [facility] [place] [facility] [address] [id number] [place] [address]- 6[address] Nov, [facility] [place] [facility] [address] [id number] [place] [address]- 7944 Nov, [facility] [place] [facility] [address] [id number] [place] [address]- 67[address] Nov, [facility] [place] [facility] [address] [id number] [place] [address]- 5[address] Nov, [facility] [place] [facility] [address] [id number] [place] [address]- 1141 20 Nov, 2011 [facility] [place] [facility] [address] [id number] [place] [address]- 4841 Nov, [facility] [place] [facility] [address] [id number] [place] [address]- 6[address] 13 Nov, 2011 [facility] [place] [facility] [address] [id number] [place] [address]- 8476 Nov, [facility] [place] [facility] [address] [id number] [place] [address]- [address]117 05 Nov, 2011 [facility] [place] [facility] [address] [id number] [place] [address]- [address] October, IMMUNIZATIONS No Known Immunizations SOCIAL HISTORY Never Assessed REASON FOR VISIT Refill request PLAN OF CARE VITAL SIGNS MEDICATIONS Medication Instructions Dosage Frequency Start Date End Date Duration Status Propranolol HCl 80MG Orally Twice a day [...]
--- OUTSIDE RECORDS SUMMARY | 2018-08-12 15:10 | XMS REPORT ---
Author Author SCARLET ALVES Organization [facility] Address [address] [place] [address] Care Team Providers Care Batch Mixer Operator Name Role Phone SCARLET ALVES Unavailable PROBLEMS Type Condition ICD9-CM Code [id number] Code Onset Dates Condition Status SNOMED Code Problem Essential hypertension I10 Active 27881552 Problem Other chronic pain G89.29 Active 72118859 Problem 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 Active 91458540 Problem Other chronic pain G89.29 Active 61330352 Problem Intractable chronic migraine without aura and with status migrainosus G43.711 Active 248468401 Problem Primary insomnia F51.01 Active 9396831 Problem Seizure disorder G40.909 Active 430948209 Problem Moderate persistent asthma with exacerbation J45.41 Active 886739326 Problem Moderate persistent asthma without complication J45.40 Active 981423788 Problem Elevated liver enzymes R74.8 Active 861607085 Problem Hyperlipidemia LDL goal <100 E78.5 Active 31101837 Problem Hypokalemia E87.6 Active 22118764 Problem Tremor, hereditary, benign G25.0 Active 270192098 Problem Abnormal glucose R73.09 Active 809861776 Problem Irritable bowel K58.9 Active 70156566 Problem Major depressive disorder, recurrent episode, moderate F33.1 Active 858189979 Problem Chronic migraine without aura with status migrainosus, not intractable G43.701 Active 920650655 ALLERGIES No Information ENCOUNTERS Encounter Location Date Diagnosis [facility] [address] [facility] [id number] [address] Mar, [facility] [address] [address] 14 Feb, 2018 [facility] [address] [id number] [address] Feb, [facility] [address] [address] 99[address] Feb, [facility] [id number] [place] [address] 60199- 1169 Jan, [facility] [id number] [place] [address] 03892- 9393 Dec, [facility] [id number] [place] [address] 44594- 6239 Dec, Other chronic pain G89.29 ; Pain in right shoulder M25.511 and Liver enzyme elevation R74.8 [facility] [id number] [place] [address] 60467- 3797 Nov, Other chronic pain G89.29 and Pain in right shoulder M25.511 [facility] [id number] [place] [address] 29816- 9532 October, [facility] [id number] [place] [address] 42085 -0718 October, Right shoulder pain, unspecified chronicity M25.511 [facility] [id number] [place] [address] 82310- 3820 Aug, Elevated liver enzymes R74.8 and Hyperlipidemia LDL goal < 100 E78.5 [facility] [id number] [place] [address] 32846- 6192 Aug, [facility] [id number] [place] [address] 17189- 5234 Jul, [facility] [id number] [place] [address] 80759- 7841 Jul, Intractable chronic migraine without aura and with status migrainosus G43.711 ; Fever, unspecified fever cause R50.9 and Elevated liver enzymes R74.8 [facility] [id number] [place] [address] 68228- 7364 Jun, Difficulty urinating R39.198 and Moderate persistent asthma with exacerbation J45.41 [place] [id number] [place] [address] 60314- 0400 Jun, [facility] [address] 34653- 6585 Jun, Moderate persistent asthma with exacerbation J45.41 [place] [address] 43756- 0735 May, Elevated liver enzymes R74.8 and Hyperlipidemia LDL goal < 100 E78.5 [place] [address] 21806- 0093 May, Elevated lipids E78.5 [place] [address] 94683- 2436 Apr, Elevated liver enzymes R74.8 [place] [address] 89416- 9439 Apr, Elevated liver enzymes R74.8 [place] [address] 18354- 5414 Apr, Superior glenoid labrum lesion of right shoulder, subsequent encounter S43.431D [place] [address] 22351- 5670 Apr, Hypokalemia E87.6 ; Major depressive disorder, recurrent episode, moderate F33.1 ; Other abnormalities of breathing R06.89 and Dyspnea, unspecified R06.00 [facility] [id number] [place] [address] 71897 -1072 Mar, Moderate persistent asthma without complication J45.40 [place] [address] 94342- 5147 Mar, Impingement syndrome of right shoulder M75.41 [facility] [id number] [place] [address] 00908- 0142 Jan, [place] [address] 52220- 0439 Jan, Chronic migraine without aura with status migrainosus, not intractable G43.701 ; Essential hypertension I10 ; Irritable bowel K58.9 ; Primary insomnia F51.01 and Hypokalemia E87.6 [facility] [id number] [place] [address] 78974- 4534 Dec, [facility] [id number] [place] [address] 08026- 3177 Dec, Pain in right shoulder M25.511 [facility] [id number] [place] [address] 55260- 4670 Dec, Essential hypertension I10 [facility] [address] 50990- 1692 Dec, [facility] [id number] [place] [address] 96723- 4118 Nov, Essential hypertension I10 [facility] [address] 29906- 9550 Nov, Pain in right shoulder M25.511 [facility] [id number] [place] [address] 29587- 4609 Nov, Pain in right shoulder M25.511 [facility] [id number] [place] [address] 69575- 6286 October, [facility] [address] 68433- 2222 October, Pain in right shoulder M25.511 [facility] [id number] [place] [address] 73915- 6542 Sep, Arm pain, right M79.601 [facility] [id number] [place] [address] 04223- 9005 Sep, [facility] [id number] [place] [address] 65636- 9349 Sep, Abnormal glucose R73.09 and Elevated lipids E78.5 [place] [id number] [place] [address] 77807- 0857 Sep, Abnormal glucose R73.09 and Elevated lipids E78.5 [place] [id number] [place] [address] 56889- 2811 31 Aug, 2016 [place] [id number] [place] [address] 84248- 1283 Aug, [place] [address] 56270- 9591 Aug, [place] [id number] [place] [address] 39589- 3382 Aug, 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 ; Hypokalemia E87.6 ; Irritable bowel K58.9 ; Essential hypertension I10 ; Pain in right shoulder M25.511 ; Seizure disorder G40.909 and Screening for lipid disorders Z13.220 [place] [id number] [place] [address] 22896- 1630 Jul, Other chronic pain G89.29 and Pain in right shoulder M25.511 [place] [id number] [place] [address] 08282- 6664 14 Jul, 2016 Biceps muscle strain, right, subsequent encounter S46.111D [facility] [id number] [place] [address] 22509 -7039 Jul, Arm pain, right M79.601 [place] [id number] [place] [address] 62966- 2231 Jun, [place] [id number] [place] [address] 62242- 5444 Jun, Acute non-recurrent frontal sinusitis J01.10 [place] [id number] [place] [address] 50819- 4002 14 May, 2016 Generalized abdominal pain R10.84 ; Urinary tract infection without hematuria, site unspecified N39.0 ; Hypokalemia E87.6 ; Essential hypertension I10 ; Screening for lipid disorders Z13.220 ; Seizure R56.9 and Low back pain M54.5 [place] [address] 93136- 8889 Apr, [facility] [address] 90653 -7909 Feb, [place] [address] 51791- 9266 Jan, [place] [address] 19809- 5936 Dec, 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 ; Hypokalemia E87.6 ; Irritable bowel K58.9 and Nausea R11.0 [facility] [address] 77241 -8511 Dec, Generalized abdominal pain R10.84 [place] [address] 87413- 0118 Nov, [facility] [address] 99685 -7573 Aug, Acute bronchitis J20.9 [place] [address] 79208- 9350 Aug, [place] [id number] [place] [address] 32003- 6877 08 Aug, 2015 Low back pain M54.5 ; Hypokalemia E87.6 ; Chronic migraine without aura with status migrainosus, not intractable G43.701 ; Tremor, hereditary, benign G25.0 ; Irritable bowel K58.9 ; Essential hypertension I10 and Seizure R56.9 [place] [id number] [place] [address] 23313- 7176 07 Aug, 2015 [place] [address] 47611- 6734 Jul, [place] [id number] [place] [address] 30682- 9462 03 Jul, 2015 Low back pain M54.5 ; Hypokalemia E87.6 ; Chronic migraine without aura with status migrainosus, not intractable G43.701 ; Tremor, hereditary, benign G25.0 ; Irritable bowel K58.9 ; Essential hypertension I10 and Seizure R56.9 [place] [id number] [place] [address] 82439- 3469 Jun, Hypokalemia E87.6 [place] [id number] [place] [address] 14526- 2392 15 Jun, 2015 ADD (attention deficit disorder) without hyperactivity F90.0 ; Generalized anxiety disorder F41.1 and Major depressive disorder, recurrent episode, moderate F33.1 [place] [id number] [place] [address] 06745- 3403 Jun, Low back pain M54.5 ; Hypokalemia E87.6 ; Chronic migraine without aura with status migrainosus, not intractable G43.701 ; Tremor, hereditary, benign G25.0 ; Irritable bowel K58.9 ; Essential hypertension I10 and Seizure R56.9 [place] [id number] [place] [address] 39353- 1539 Jun, [place] [id number] [place] [address] 69298- 7784 May, [place] [id number] [place] [address] 54635- 3058 30 May, 2015 Low back pain M54.5 ; Hypokalemia E87.6 ; Chronic migraine without aura with status migrainosus, not intractable G43.701 ; Tremor, hereditary, benign G25.0 ; Irritable bowel K58.9 ; Essential hypertension I10 ; Seizure R56.9 and Tinea capitis B35.0 [place] [id number] [place] [address] 35399- 5440 May, Low back pain M54.5 ; Hypokalemia E87.6 ; Chronic migraine without aura with status migrainosus, not intractable G43.701 ; Tremor, hereditary, benign G25.0 ; Irritable bowel K58.9 ; Essential hypertension I10 ; Seizure R56.9 ; Otitis media, left H66.92 and Dysuria 788.1 [place] [address] 48100- 1916 May, Tooth pain K08.8 [place] [address] 72379- 2778 May, [place] [address] 29440- 2918 May, Low back pain M54.5 ; Hypokalemia E87.6 ; Chronic migraine without aura with status migrainosus, not intractable G43.701 ; Tremor, hereditary, benign G25.0 ; Irritable bowel K58.9 and Essential hypertension I10 [place] [address] 03053- 7344 Apr, Low back pain M54.5 ; Hypokalemia E87.6 ; Chronic migraine without aura with status migrainosus, not intractable G43.701 ; Tremor, hereditary, benign G25.0 and Irritable bowel K58.9 [place] [id number] [place] [address] 07352- 5632 Apr, Low back pain M54.5 [place] [id number] [place] [address] 41162- 0894 Mar, [place] [address] 64664- 0531 Mar, Irritable bowel syndrome with diarrhea K58.0 [place] [address] 46007- 5606 Mar, [place] [address] 40451- 5239 Feb, [place] [id number] [place] [address] 83861- 5909 08 Feb, 2015 [facility] [id number] [place] [address] 05143- 3577 Feb, Irritable bowel syndrome 564.1 ; Lumbago 724.2 and Cervical pain (neck) 723.1 [facility] [id number] [place] [address] 33337- 9065 Dec, Major depressive disorder, recurrent episode, moderate 296.32 and Generalized anxiety disorder 300.02 [facility] [id number] [place] [address] 82519- 5599 Nov, [facility] [id number] [place] [address] 94384- 3938 Nov, Major depressive disorder, recurrent episode, moderate 296.32 [facility] [id number] [place] [address] 48276- 7115 Nov, Constipation 564.00 ; Nausea & vomiting 787.01 and Abdominal pain 789.00 [facility] [id number] [place] [address] 56026- 9397 Nov, [facility] [id number] [place] [address] 37249- 2881 October, [facility] [id number] [place] [address] 81978- 6853 October, [facility] [id number] [place] [address] 19843- 6876 October, [facility] [id number] [place] [address] 45816- 7392 October, [facility] [id number] [place] [address] 209845- 7863 Sep, Dysuria 788.1 [facility] [id number] [place] [address] 59795- 0848 Sep, [facility] [id number] [place] [address]- 8240 30 Sep, 2014 [facility] [place] [facility] [address] [id number] [place] [address]- 5443 14 Sep, 2014 [facility] [place] [facility] [address] [id number] [place] [address]- 4276 13 Sep, 2014 [facility] [place] [facility] [address] [id number] [place] [address]- 9766 30 Aug, 2014 [facility] [place] [facility] [address] [id number] [place] [address]- 1867 30 Aug, 2014 [facility] [place] [facility] [address] [id number] [place] [address]- 3176 Aug, [facility] [place] [facility] [address] [id number] [place] [address]- 1017 Aug, [facility] [place] [facility] [address] [id number] [place] [address]- 8681 Aug, [facility] [place] [facility] [address] [id number] [place] [address]- 4113 18 Aug, 2014 [facility] [place] [facility] [address] [id number] [place] [address]- 6457 Aug, [facility] [place] [facility] [address] [id number] [place] [address]- 3903 Aug, [facility] [place] [facility] [address] [id number] [place] [address]- 2483 Aug, [facility] [place] [facility] [address] [id number] [place] [address]- 2596 Aug, [facility] [place] [facility] [address] [id number] [place] [address]- 3296 Jun, [facility] [place] [facility] [address] [id number] [place] [address]- 2546 Jun, [facility] [place] [facility] [address] [id number] [place] [address]- 5183 Jun, [facility] [place] [facility] [address] [id number] [place] [address]- 2500 Jun, [facility] [place] [facility] [address] [id number] [place] [address]- 7467 May, [facility] [place] [facility] [address] [id number] [place] 8509 May, [facility] [place] [facility] [address] [id number] [place] [address]- 9982 May, [facility] [place] [facility] [address] [id number] [place] [address]- 3121 May, [facility] [place] [facility] [address] [id number] [place] 9426 May, [facility] [place] [facility] [address] [id number] [place] [address]- 8396 May, [facility] [place] [facility] [address] [id number] [place] [address]- 2802 May, [facility] [place] [facility] [address] [id number] [place] [address]- 7197 May, [facility] [place] [facility] [address] [id number], [place] [address]- 7560 Mar, [facility] [place] [facility] [address] [id number], [place] [address]- 4691 Mar, [facility] [place] [facility] [address] [id number], [place] [address]- 7401 Mar, [facility] [place] [facility] [address] [id number] [place] [address]- 2958 Mar, [facility] [place] [facility] [address] [id number] [place] [address]- 6696 Mar, [facility] [place] [facility] [address] [id number] 2887 Mar, [facility] [place] [facility] [address] [id number], [place] [address]- 1680 Mar, [facility] [place] [facility] [address] [id number] [place] [address]- 9142 14 Mar, 2014 [facility] [place] [facility] [address] [id number] [place] [address]- 0979 Mar, [facility] [place] [facility] [address] [id number] [place] [address]- 3939 Mar, [facility] [place] [facility] [address] [id number] [place] [address]- 2488 Mar, [facility] [place] [facility] [address] [id number] [place] [address]- 5218 Mar, [facility] [place] [facility] [address] [id number] [place] [address]- 5485 Feb, [facility] [place] [facility] [address] [id number] [place] [address]- 0683 24 Feb, 2014 [facility] [place] [facility] [address] [id number] [place] [address]- 2373 Feb, [facility] [place] [facility] [address] [id number] [place] [address]- 6611 Feb, [facility] [place] [facility] [address] [facility] [id number] [place] [address]- 2740 Feb, [facility] [place] [facility] [address] [id number] [place] [address]- 6058 Feb, [facility] [place] [facility] [address] [id number], [place] [address]- 2915 Jan, [facility] [place] [facility] [address] [id number] [place] [address]- 6639 Jan, [facility] [place] [facility] [address] [facility] [id number] [place] [address]- 3120 Jan, [facility] [place] [facility] [address] [id number] [place] [address]- 2871 Jan, [facility] [place] [facility] [address] [id number] [place] [address]- 3994 Jan, [facility] [place] [facility] [address] [id number] [place] [address]- 7049 Jan, [facility] [place] [facility] [address] [id number] [place] [address]- 5226 Jan, [facility] [place] [facility] [address] [id number] [place] [address]- 3806 Jan, [facility] [place] [facility] [address] [id number] [place] [address]- 1574 Dec, [facility] [place] [facility] [address] [id number] [place] [address]- 1681 Dec, [facility] [place] [facility] [address] [id number] [place] [address]- 4458 Dec, [facility] [place] [facility] [address] [id number] [place] [address]- 1123 Dec, [facility] [place] [facility] [address] [id number] [place] [address]- 2194 Dec, [facility] [place] [facility] [address] [id number] [place] [address]- 4564 Dec, [facility] [place] [facility] [address] [id number] [place] [address]- 1524 Dec, [facility] [place] [facility] [address] [id number] [place] [address]- 1356 Dec, [facility] [place] [facility] [address] [id number] [place] [address]- 2931 October, [facility] [place] [facility] [address] [id number] [place] [address]- 7340 October, [facility] [place] [facility] [address] [id number] [place] [address]- 9492 Sep, [facility] [place] [facility] [address] [id number] [place] [address]- 4418 Sep, [facility] [place] [facility] [address] [id number] [place] [address]- 4950 Sep, [facility] [place] [facility] [address] [id number] [place] [address]- 5984 Sep, [facility] [place] [facility] [address] [id number] [place] [address]- 6986 Sep, [facility] [place] [facility] [address] [id number] [place] [address]- 1691 Sep, [facility] [place] [facility] [address] [id number] [place] [address] Sep, [facility] [place] [facility] [address] [id number] [place] [address] Sep, [facility] [place] [facility] [address] [id number] [place] [address] Sep, [facility] [place] [facility] [address] [id number] [place] [address] Sep, [facility] [place] [facility] [address] [id number] [place] [address] Sep, [facility] [place] [facility] [address] [id number] [place] [address] Sep, [facility] [place] [facility] [address] [id number] [place] [address] Aug, [facility] [place] [facility] [address] [id number] [place] [address] Aug, [facility] [place] [facility] [address] [id number] [place] [address] Aug, [facility] [place] [facility] [address] [id number] [place] [address] Jun, [facility] [place] [facility] [address] [id number] [place] [address] Jun, [facility] [place] [facility] [address] [id number] [place] [address] 14 Jun, 2013 [facility] [address] [id number] [place] [address] Jun, [facility] [place] [facility] [address] [id number] [place] [address] Jun, [facility] [address] [id number] [place] [address] Jun, [facility] [place] [facility] [address] [id number] [place] [address]- [address] Jun, [facility] [place] [facility] [address] [id number] [place] [address]- [address] Jun, [facility] [place] [facility] [address] [id number] [place] [address]- 2016 Jun, [facility] [address] [id number] [place] [address] Jun, [facility] [place] [facility] [address] [id number] [place] [address]- [address] May, [facility] [place] [facility] [address] [id number] [place] [address] May, [facility] [place] [facility] [address] [id number] [place] [address]- [address] May, [facility] [place] [facility] [address] [id number] [place] [address] May, [facility] [place] [facility] [address] [id number] [place] [address]- [address] Apr, [facility] [place] [facility] [address] [id number] [place] [address] Apr, [facility] [place] [facility] [address] [id number] [place] [address]- [address] Apr, [facility] [place] [facility] [address] [id number] [place] [address]- [address] Apr, [facility] [place] [facility] [address] [id number] [place] [address] Apr, [facility] [place] [facility] [address] [id number] [place] [address]- [address] Apr, [facility] [place] [facility] [address] [id number] [place] [address]- [address] Apr, [facility] [place] [facility] [address] [id number] [place] [address]- [address] Apr, [facility] [place] [facility] [address] [id number] [place] [address] Mar, [facility] [place] [facility] [address] [id number] [place] [address]- [address] Mar, [facility] [place] [facility] [address] [id number] [place] [address]- [address] Mar, [facility] [place] [facility] [address] [id number] [place] [address] Mar, [facility] [place] [facility] [address] [id number] [place] [address] Mar, [facility] [place] [facility] [address] [id number] [place] [address] Feb, [facility] [place] [facility] [address] [id number] [place] [address] Feb, [facility] [place] [facility] [address] [id number], [place] [address] Feb, [facility] [place] [facility] [address] [id number] [place] [address]- [address] Feb, [facility] [place] [facility] [address] [id number] [place] [address]- [address] Feb, [facility] [place] [facility] [address] [id number] [place] [address]- [address] Jan, [facility] [place] [facility] [address] [id number] [place] [address]- [address] Jan, [facility] [address] [id number] [place] [address] Nov, [facility] [address] [id number] [place] [address] Nov, [facility] [address] [id number] [place] [address] Nov, [facility] [address] [id number] [place] [address] Nov, [facility] [address] [id number] [place] [address] October, [facility] [address] [id number] [place] [address] Sep, [facility] [address] [id number] [place] [address] Aug, [facility] [address] [id number] [place] [address] Aug, [facility] [address] [id number] [place] [address] Aug, [facility] [address] [id number] [place] [address] Aug, [facility] [address] [id number] [place] [address] Jul, [facility] [address] [id number] [place] [address] Jun, [facility] [place] [facility] [address] [id number] [place] [address] Jun, [facility] [place] [facility] [address] [id number] [place] [address] May, [facility] [address] [id number] [place] [address] May, [facility] [address] [id number] [place] [id number] Mar, 2011 [facility] [place] [facility] [address] [id number] [place] [address] Mar, [facility] [place] [facility] [address] [id number] [place] [address] Mar, [facility] [address] [id number] [place] [address] Mar, [facility] [place] [facility] [address] [id number] [place] [address] Mar, [facility] [address] [id number] [place] [address] Mar, [facility] [place] [facility] [address] [id number] [place] [address] Mar, [facility] [place] [facility] [address] [id number] [place] [address] Mar, [facility] [address] [id number] [place] [address] Mar, [facility] [place] [facility] [address] [id number] [place] [address] Mar, [facility] [place] [facility] [address] [id number], [place] [address] Mar, [facility] [place] [facility] [address] [id number] [place] [address] Mar, [facility] [place] [facility] [address] [id number], [place] [address] 17 Mar, 2012 [facility] [place] [facility] [address] [id number] [place] [address] 15 Mar, 2012 [facility] [place] [facility] [address] [id number] [place] [address] 15 Mar, 2012 [facility] [place] [facility] [address] [id number], [place] [address] 15 Mar, 2012 [facility] [place] [facility] [address] [id number] [place] [address]16 15 Mar, 2012 [facility] [place] [facility] [address] [id number] [place] [address] Mar, [facility] [place] [facility] [address] [id number] [place] [address] Mar, [facility] [place] [facility] [address] [id number] [place] [address] Mar, [facility] [place] [facility] [address] [id number] [place] [address] 08 Mar, 2012 [facility] [place] [facility] [address] [id number] [place] [address] 03 Mar, 2012 [facility] [place] [facility] [address] [facility] [id number] [place] [address] Mar, [facility] [place] [facility] [address] [id number], [place] [address] 19 Feb, 2012 [facility] [place] [facility] [address] [id number] [place] [address] 18 Sep2011 [facility] [place] [facility] [address] [facility] [id number], [place] [address]- 9314 17 Sep2011 [facility] [place] [facility] [address] [facility] [id number], [place] [address]- [address] 14 Sep2011 [facility] [place] [facility] [address] [id number], [place] [address] 96[address] 14 Sep, 2011 [facility] [place] [facility] [address] [id number], [place] [address]- [address] 12 Sep2011 [facility] [place] [facility] [address] [id number], [place] [address] 10 Feb, 2012 [facility] [place] [facility] [address] [facility] [id number], [place] [address] 31 Jan, 2012 [facility] [place] [facility] [address] [id number], [place] [address] Jan, [facility] [place] [facility] [address] [id number] [place] [address] Jan, [facility] [place] [facility] [address] [id number] [place] [address] Jan, [facility] [place] [facility] [address] [id number] [place] [address]- 3546 Jan, [facility] [place] [facility] [address] [id number] [place] [address]- 6799 Jan, [facility] [place] [facility] [address] [id number] [place] [address]- 8784 Jan, [facility] [place] [facility] [address] [id number] [place] [address]- 3032 Jan, [facility] [place] [facility] [address] [id number] [place] [address]- 6745 Jan, [facility] [place] [facility] [address] [id number] [place] [address] Jan, [facility] [place] [facility] [address] [id number] [place] [address]- [address]383 Dec, [facility] [place] [facility] [address] [id number] [place] [address]70 Dec, [facility] [place] [facility] [address] [id number] [place] [address]4 Dec, [facility] [place] [facility] [address] [id number] [place] [address]- 7003 Dec, [facility] [place] [facility] [address] [id number] [place] [address]- 6042 Dec, [facility] [place] [facility] [address] [id number] [place] [address]- 4623 Dec, [facility] [place] [facility] [address] [id number] [place] [address] 8708 16 Dec, 2011 [facility] [place] [facility] [address] [facility] [id number], [place] [address] 14 Dec, 2011 [facility] [address] [facility] [id number], [place] [address] 12 Dec, 2011 [facility] [address] [facility] [id number], [place] [address] Dec, [facility] [address] [facility] [id number], [place] [address] 06 Dec, 2011 [facility] [address] [facility] [id number], [place] [address]- [address] 29 Nov, 2011 [facility] [address] [facility] [id number], [place] [address]118 Nov, [facility] [address] [facility] [id number], [place] [address]- 0916 Nov, [facility] [id number], [place] [address] Nov, [facility] [address] [facility] [id number], [place] [address]- 28[address] Nov, [facility] [id number], [place] [address] 1186 Nov, [facility] [address] [id number], [place] [address] Nov, [facility] [address] [id number], [place] [address] 3750 13 Nov, 2011 [facility] [address] [facility] [id number], [place] [address]- [address] Nov, [facility] [id number], [place] [address]- [address] 05 Nov, 2011 [facility] [address] [facility] [id number], [place] [address]- [address] October, IMMUNIZATIONS No Known Immunizations SOCIAL HISTORY Never Assessed REASON FOR VISIT Refill request PLAN OF CARE VITAL SIGNS MEDICATIONS Unknown [...]
--- OUTSIDE RECORDS SUMMARY | 2018-08-12 15:10 | XMS REPORT ---
Author Author SCARLET ALVES Organization [facility] Address [address] [place] [address] Care Team Providers Care Slip Laster Name Role Phone SCARLET ALVES Unavailable PROBLEMS Type Condition ICD9-CM Code QRT44-GY Code Onset Dates Condition Status SNOMED Code Problem Essential hypertension I10 Active 51455860 Problem Other chronic pain G89.29 Active 42607349 Problem 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 Active 62909749 Problem Other chronic pain G89.29 Active 14506077 Problem Intractable chronic migraine without aura and with status migrainosus G43.711 Active 761423478 Problem Primary insomnia F51.01 Active 3488871 Problem Seizure disorder G40.909 Active 523239546 Problem Moderate persistent asthma with exacerbation J45.41 Active 520196592 Problem Moderate persistent asthma without complication J45.40 Active 314639660 Problem Elevated liver enzymes R74.8 Active 998832373 Problem Hyperlipidemia LDL goal <100 E78.5 Active 89580566 Problem Hypokalemia E87.6 Active 38704911 Problem Tremor, hereditary, benign G25.0 Active 366940632 Problem Abnormal glucose R73.09 Active 698617669 Problem Irritable bowel K58.9 Active 47947274 Problem Major depressive disorder, recurrent episode, moderate F33.1 Active 183896013 Problem Chronic migraine without aura with status migrainosus, not intractable G43.701 Active 773096263 ALLERGIES No Information ENCOUNTERS Encounter Location Date Diagnosis [facility] [address] [facility] [id number] [address] Mar, [facility] [address] [address] 14 Feb, 2018 [facility] [address] [id number] [address] Feb, [facility] [address], [place] [address] 27[address] Feb, [facility] [id number] [place] [address] 01553- 2155 Jan, [facility] [id number] [place] [address] 86888- 4974 Dec, [facility] [id number] [place] [address] 76609- 1216 Dec, Other chronic pain G89.29 ; Pain in right shoulder M25.511 and Liver enzyme elevation R74.8 [facility] [id number] [place] [address] 05243- 0082 Nov, Other chronic pain G89.29 and Pain in right shoulder M25.511 [facility] [id number] [place] [address] 65765- 8516 October, [facility] [id number] [place] [address] 13467 -7689 October, Right shoulder pain, unspecified chronicity M25.511 [facility] [id number] [place] [address] 25685- 0796 Aug, Elevated liver enzymes R74.8 and Hyperlipidemia LDL goal < 100 E78.5 [facility] [id number] [place] [address] 63010- 6339 Aug, [facility] [id number] [place] [address] 86670- 8327 Jul, [facility] [id number] [place] [address] 74178- 9670 Jul, Intractable chronic migraine without aura and with status migrainosus G43.711 ; Fever, unspecified fever cause R50.9 and Elevated liver enzymes R74.8 [facility] [id number] [place] [address] 06209- 5379 Jun, Difficulty urinating R39.198 and Moderate persistent asthma with exacerbation J45.41 [place] [id number] [place] [address] 98639- 8834 Jun, [facility] [address] 69652- 1156 Jun, Moderate persistent asthma with exacerbation J45.41 [place] [address] 50172- 4305 May, Elevated liver enzymes R74.8 and Hyperlipidemia LDL goal < 100 E78.5 [place] [address] 00518- 7521 May, Elevated lipids E78.5 [place] [address] 80057- 9920 Apr, Elevated liver enzymes R74.8 [place] [address] 29715- 4018 Apr, Elevated liver enzymes R74.8 [place] [address] 42851- 8337 Apr, Superior glenoid labrum lesion of right shoulder, subsequent encounter S43.431D [place] [address] 38780- 7477 Apr, Hypokalemia E87.6 ; Major depressive disorder, recurrent episode, moderate F33.1 ; Other abnormalities of breathing R06.89 and Dyspnea, unspecified R06.00 [facility] [id number] [place] [address] 55094 -4828 Mar, Moderate persistent asthma without complication J45.40 [place] [address] 71489- 8067 Mar, Impingement syndrome of right shoulder M75.41 [facility] [id number] [place] [address] 72706- 8812 Jan, [place] [address] 55457- 6259 Jan, Chronic migraine without aura with status migrainosus, not intractable G43.701 ; Essential hypertension I10 ; Irritable bowel K58.9 ; Primary insomnia F51.01 and Hypokalemia E87.6 [facility] [id number] [place] [address] 90977- 0919 Dec, [facility] [id number] [place] [address] 87075- 1810 Dec, Pain in right shoulder M25.511 [facility] [id number] [place] [address] 31955- 2403 Dec, Essential hypertension I10 [facility] [address] 62086- 5862 Dec, [facility] [id number] [place] [address] 57210- 6745 Nov, Essential hypertension I10 [facility] [address] 69632- 6294 Nov, Pain in right shoulder M25.511 [facility] [id number] [place] [address] 44872- 5432 Nov, Pain in right shoulder M25.511 [facility] [id number] [place] [address] 31645- 1870 October, [facility] [address] 80880- 2428 October, Pain in right shoulder M25.511 [facility] [id number] [place] [address] 48259- 3130 Sep, Arm pain, right M79.601 [facility] [id number] [place] [address] 44590- 1795 Sep, [facility] [id number] [place] [address] 28109- 7284 Sep, Abnormal glucose R73.09 and Elevated lipids E78.5 [place] [id number] [place] [address] 90114- 1267 Sep, Abnormal glucose R73.09 and Elevated lipids E78.5 [place] [id number] [place] [address] 88789- 9423 31 Aug, 2016 [place] [id number] [place] [address] 78049- 1433 Aug, [place] [address] 95986- 3370 Aug, [place] [id number] [place] [address] 55987- 8487 Aug, 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 ; Hypokalemia E87.6 ; Irritable bowel K58.9 ; Essential hypertension I10 ; Pain in right shoulder M25.511 ; Seizure disorder G40.909 and Screening for lipid disorders Z13.220 [place] [id number] [place] [address] 01966- 4063 Jul, Other chronic pain G89.29 and Pain in right shoulder M25.511 [place] [id number] [place] [address] 37906- 2054 14 Jul, 2016 Biceps muscle strain, right, subsequent encounter S46.111D [facility] [id number] [place] [address] 52546 -9482 Jul, Arm pain, right M79.601 [place] [id number] [place] [address] 83486- 4173 Jun, [place] [id number] [place] [address] 84365- 5931 Jun, Acute non-recurrent frontal sinusitis J01.10 [place] [id number] [place] [address] 41211- 6087 14 May, 2016 Generalized abdominal pain R10.84 ; Urinary tract infection without hematuria, site unspecified N39.0 ; Hypokalemia E87.6 ; Essential hypertension I10 ; Screening for lipid disorders Z13.220 ; Seizure R56.9 and Low back pain M54.5 [place] [address] 87213- 0341 Apr, [facility] [address] 44677 -3121 Feb, [place] [address] 33773- 5829 Jan, [place] [address] 99068- 9194 Dec, 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 ; Hypokalemia E87.6 ; Irritable bowel K58.9 and Nausea R11.0 [facility] [address] 25266 -5477 Dec, Generalized abdominal pain R10.84 [place] [address] 47964- 1227 Nov, [facility] [address] 87998 -5302 Aug, Acute bronchitis J20.9 [place] [address] 46080- 8715 Aug, [place] [id number] [place] [address] 94328- 3698 08 Aug, 2015 Low back pain M54.5 ; Hypokalemia E87.6 ; Chronic migraine without aura with status migrainosus, not intractable G43.701 ; Tremor, hereditary, benign G25.0 ; Irritable bowel K58.9 ; Essential hypertension I10 and Seizure R56.9 [place] [id number] [place] [address] 00012- 5941 07 Aug, 2015 [place] [address] 16646- 6735 Jul, [place] [id number] [place] [address] 78473- 4080 03 Jul, 2015 Low back pain M54.5 ; Hypokalemia E87.6 ; Chronic migraine without aura with status migrainosus, not intractable G43.701 ; Tremor, hereditary, benign G25.0 ; Irritable bowel K58.9 ; Essential hypertension I10 and Seizure R56.9 [place] [id number] [place] [address] 06965- 1539 Jun, Hypokalemia E87.6 [place] [id number] [place] [address] 16985- 6380 15 Jun, 2015 ADD (attention deficit disorder) without hyperactivity F90.0 ; Generalized anxiety disorder F41.1 and Major depressive disorder, recurrent episode, moderate F33.1 [place] [id number] [place] [address] 13510- 7881 Jun, Low back pain M54.5 ; Hypokalemia E87.6 ; Chronic migraine without aura with status migrainosus, not intractable G43.701 ; Tremor, hereditary, benign G25.0 ; Irritable bowel K58.9 ; Essential hypertension I10 and Seizure R56.9 [place] [id number] [place] [address] 18821- 3840 Jun, [place] [id number] [place] [address] 60194- 6228 May, [place] [id number] [place] [address] 98924- 8599 30 May, 2015 Low back pain M54.5 ; Hypokalemia E87.6 ; Chronic migraine without aura with status migrainosus, not intractable G43.701 ; Tremor, hereditary, benign G25.0 ; Irritable bowel K58.9 ; Essential hypertension I10 ; Seizure R56.9 and Tinea capitis B35.0 [place] [id number] [place] [address] 80646- 4367 May, Low back pain M54.5 ; Hypokalemia E87.6 ; Chronic migraine without aura with status migrainosus, not intractable G43.701 ; Tremor, hereditary, benign G25.0 ; Irritable bowel K58.9 ; Essential hypertension I10 ; Seizure R56.9 ; Otitis media, left H66.92 and Dysuria 788.1 [place] [address] 54166- 4583 May, Tooth pain K08.8 [place] [address] 50044- 2846 May, [place] [address] 51942- 2059 May, Low back pain M54.5 ; Hypokalemia E87.6 ; Chronic migraine without aura with status migrainosus, not intractable G43.701 ; Tremor, hereditary, benign G25.0 ; Irritable bowel K58.9 and Essential hypertension I10 [place] [address] 33493- 5070 Apr, Low back pain M54.5 ; Hypokalemia E87.6 ; Chronic migraine without aura with status migrainosus, not intractable G43.701 ; Tremor, hereditary, benign G25.0 and Irritable bowel K58.9 [place] [id number] [place] [address] 84654- 1813 Apr, Low back pain M54.5 [place] [id number] [place] [address] 56772- 4231 Mar, [place] [address] 18185- 8618 Mar, Irritable bowel syndrome with diarrhea K58.0 [place] [address] 12581- 6243 Mar, [place] [address] 09612- 1255 Feb, [place] [id number] [place] [address] 26945- 8754 08 Feb, 2015 [facility] [id number] [place] [address] 33736- 6117 Feb, Irritable bowel syndrome 564.1 ; Lumbago 724.2 and Cervical pain (neck) 723.1 [facility] [id number] [place] [address] 84225- 6254 Dec, Major depressive disorder, recurrent episode, moderate 296.32 and Generalized anxiety disorder 300.02 [facility] [id number] [place] [address] 57873- 2641 Nov, [facility] [id number] [place] [address] 25079- 2487 Nov, Major depressive disorder, recurrent episode, moderate 296.32 [facility] [id number] [place] [address] 92602- 7987 Nov, Constipation 564.00 ; Nausea & vomiting 787.01 and Abdominal pain 789.00 [facility] [id number] [place] [address] 00216- 6815 Nov, [facility] [id number] [place] [address] 35537- 2247 October, [facility] [id number] [place] [address] 79013- 1764 October, [facility] [id number] [place] [address] 01185- 0707 October, [facility] [id number] [place] [address] 94833- 5862 October, [facility] [id number] [place] [address] 600676- 8913 Sep, Dysuria 788.1 [facility] [id number] [place] [address] 96680- 5809 Sep, [facility] [address] [place] [address]- 4620 30 Sep, 2014 [facility] [place] [facility] [address] [id number] [place] [address]- 2464 14 Sep, 2014 [facility] [place] [facility] [address] [id number] [place] [address]- 0656 13 Sep, 2014 [facility] [place] [facility] [address] [id number] [place] [address]- 7306 30 Aug, 2014 [facility] [place] [facility] [address] [id number] [place] [address]- 2032 30 Aug, 2014 [facility] [place] [facility] [address] [id number] [place] [address]- 0974 Aug, [facility] [place] [facility] [address] [id number] [place] [address]- 2603 Aug, [facility] [place] [facility] [address] [id number] [place] [address]- 7209 Aug, [facility] [place] [facility] [address] [id number] [place] [address]- 5117 18 Aug, 2014 [facility] [place] [facility] [address] [id number] [place] [address]- 6887 Aug, [facility] [place] [facility] [address] [id number] [place] [address]- 3646 Aug, [facility] [place] [facility] [address] [id number] [place] [address]- 8770 Aug, [facility] [place] [facility] [address] [id number] [place] [address]- 8866 Aug, [facility] [place] [facility] [address] [id number] [place] [address]- 3956 Jun, [facility] [place] [facility] [address] [id number] [place] [address]- 2546 Jun, [facility] [place] [facility] [address] [id number] [place] [address]- 3339 Jun, [facility] [place] [facility] [address] [id number] [place] [address]- 4398 Jun, [facility] [place] [facility] [address] [id number] [place] [address]- 8311 May, [facility] [place] [facility] [address] [id number] [place] 5603 May, [facility] [place] [facility] [address] [id number] [place] [address]- 8125 May, [facility] [place] [facility] [address] [id number] [place] [address]- 9524 May, [facility] [place] [facility] [address] [id number] [place] 0151 May, [facility] [place] [facility] [address] [id number] [place] [address]- 6740 May, [facility] [place] [facility] [address] [id number] [place] [address]- 9475 May, [facility] [place] [facility] [address] [id number] [place] [address]- 3747 May, [facility] [place] [facility] [address] [id number], [place] [address]- 6529 Mar, [facility] [place] [facility] [address] [id number], [place] [address]- 9343 Mar, [facility] [place] [facility] [address] [id number], [place] [address]- 4015 Mar, [facility] [place] [facility] [address] [id number] [place] [address]- 7767 Mar, [facility] [place] [facility] [address] [id number] [place] [address]- 1921 Mar, [facility] [place] [facility] [address] [id number] 2712 Mar, [facility] [place] [facility] [address] [id number], [place] [address]- 4934 Mar, [facility] [place] [facility] [address] [id number] [place] [address]- 7045 14 Mar, 2014 [facility] [place] [facility] [address] [id number] [place] [address]- 7102 Mar, [facility] [place] [facility] [address] [id number] [place] [address]- 1884 Mar, [facility] [place] [facility] [address] [id number] [place] [address]- 3083 Mar, [facility] [place] [facility] [address] [id number] [place] [address]- 3366 Mar, [facility] [place] [facility] [address] [id number] [place] [address]- 3313 Feb, [facility] [place] [facility] [address] [id number] [place] [address]- 8477 24 Feb, 2014 [facility] [place] [facility] [address] [id number] [place] [address]- 2414 Feb, [facility] [place] [facility] [address] [id number] [place] [address]- 4410 Feb, [facility] [place] [facility] [address] [facility] [id number] [place] [address]- 3944 Feb, [facility] [place] [facility] [address] [id number] [place] [address]- 5939 Feb, [facility] [place] [facility] [address] [id number], [place] [address]- 7728 Jan, [facility] [place] [facility] [address] [id number] [place] [address]- 8433 Jan, [facility] [place] [facility] [address] [facility] [id number] [place] [address]- 7193 Jan, [facility] [place] [facility] [address] [id number] [place] [address]- 8883 Jan, [facility] [place] [facility] [address] [id number] [place] [address]- 4731 Jan, [facility] [place] [facility] [address] [id number] [place] [address]- 6181 Jan, [facility] [place] [facility] [address] [id number] [place] [address]- 2809 Jan, [facility] [place] [facility] [address] [id number] [place] [address]- 0920 Jan, [facility] [place] [facility] [address] [id number] [place] [address]- 8178 Dec, [facility] [place] [facility] [address] [id number] [place] [address]- 0120 Dec, [facility] [place] [facility] [address] [id number] [place] [address]- 9268 Dec, [facility] [place] [facility] [address] [id number] [place] [address]- 0858 Dec, [facility] [place] [facility] [address] [id number] [place] [address]- 0613 Dec, [facility] [place] [facility] [address] [id number] [place] [address]- 1592 Dec, [facility] [place] [facility] [address] [id number] [place] [address]- 4004 Dec, [facility] [place] [facility] [address] [id number] [place] [address]- 2483 Dec, [facility] [place] [facility] [address] [id number] [place] [address]- 8400 October, [facility] [place] [facility] [address] [id number] [place] [address]- 4327 October, [facility] [place] [facility] [address] [id number] [place] [address]- 9776 Sep, [facility] [place] [facility] [address] [id number] [place] [address]- 9472 Sep, [facility] [place] [facility] [address] [id number] [place] [address]- 1528 Sep, [facility] [place] [facility] [address] [id number] [place] [address]- 8088 Sep, [facility] [place] [facility] [address] [id number] [place] [address]- 2613 Sep, [facility] [place] [facility] [address] [id number] [place] [address]- 4040 Sep, [facility] [place] [facility] [address] [id number] [place] [address]- 6796 Sep, [facility] [place] [facility] [address] [id number] [place] [address]- 2011 Sep, [facility] [place] [facility] [address] [id number] [place] [address]- 7190 Sep, [facility] [place] [facility] [address] [id number] [place] [address]- 1373 Sep, [facility] [place] [facility] [address] [id number] [place] [address]- 7124 Sep, [facility] [place] [facility] [address] [id number] [place] [address]- 2938 Sep, [facility] [place] [facility] [address] [id number] [place] [address]- 9757 Aug, [facility] [place] [facility] [address] [id number] [place] [address] Aug, [facility] [place] [facility] [address] [id number] [place] [address] Aug, [facility] [place] [facility] [address] [id number] [place] [address] Jun, [facility] [place] [facility] [address] [id number] [place] [address] Jun, [facility] [place] [facility] [address] [id number] [place] [address] 14 Jun, 2013 [facility] [address] [id number] [place] [address] Jun, [facility] [place] [facility] [address] [id number] [place] [address] Jun, [facility] [address] [id number] [place] [address] Jun, [facility] [place] [facility] [address] [id number] [place] [address] Jun, [facility] [place] [facility] [address] [id number] [place] [address] Jun, [facility] [place] [facility] [address] [id number] [place] [address] Jun, [facility] [address] [id number] [place] [address] Jun, [facility] [place] [facility] [address] [id number] [place] [address] May, [facility] [place] [facility] [address] [id number] [place] [address] May, [facility] [place] [facility] [address] [id number] [place] [address] May, [facility] [place] [facility] [address] [id number] [place] [address] May, [facility] [place] [facility] [address] [id number] [place] [address] Apr, [facility] [place] [facility] [address] [id number] [place] [address] Apr, [facility] [place] [facility] [address] [id number] [place] [address] Apr, [facility] [place] [facility] [address] [id number] [place] [address] Apr, [facility] [place] [facility] [address] [id number] [place] [address] Apr, [facility] [place] [facility] [address] [id number] [place] [address] Apr, [facility] [place] [facility] [address] [id number] [place] [address] Apr, [facility] [place] [facility] [address] [id number] [place] [address] Apr, [facility] [place] [facility] [address] [id number] [place] [address] Mar, [facility] [place] [facility] [address] [id number] [place] [address] Mar, [facility] [place] [facility] [address] [id number] [place] [address] Mar, [facility] [place] [facility] [address] [id number] [place] [address] Mar, [facility] [place] [facility] [address] [id number] [place] [address] Mar, [facility] [place] [facility] [address] [id number] [place] [address] Feb, [facility] [place] [facility] [address] [id number] [place] [address] Feb, [facility] [place] [facility] [address] [id number] [address] Feb, [facility] [place] [facility] [address] [id number] [place] [address] Feb, [facility] [place] [facility] [address] [id number] [place] [address] Feb, [facility] [place] [facility] [address] [id number] [place] [address] Jan, [facility] [place] [facility] [address] [id number] [place] [address] Jan, [facility] [address] [id number] [place] [address] Nov, [facility] [address] [id number] [place] [address] Nov, [facility] [address] [id number] [place] [address] Nov, [facility] [address] [id number] [place] [address] Nov, [facility] [address] [id number] [place] [address] October, [facility] [address] [id number] [place] [address] Sep, [facility] [address] [id number] [place] [address] Aug, [facility] [address] [id number] [place] [address] Aug, [facility] [address] [id number] [place] [address] Aug, [facility] [address] [id number] [place] [address] Aug, [facility] [address] [id number] [place] [address] Jul, [facility] [address] [id number] [place] [address] Jun, [facility] [place] [facility] [address] [id number] [place] [address] Jun, [facility] [place] [facility] [address] [id number] [place] [address] May, [facility] [address] [id number] [place] [address] May, [facility] [address] [id number] [place] [id number] Mar, 2011 [facility] [place] [facility] [address] [id number] [place] [address] Mar, [facility] [place] [facility] [address] [id number] [place] [address] Mar, [facility] [address] [id number] [place] [address] Mar, [facility] [place] [facility] [address] [id number] [place] [address] Mar, [facility] [address] [id number] [place] [address] Mar, [facility] [place] [facility] [address] [id number] [place] [address] Mar, [facility] [place] [facility] [address] [id number] [place] [address] Mar, [facility] [address] [id number] [place] [address] Mar, [facility] [place] [facility] [address] [id number] [place] [address] Mar, [facility] [place] [facility] [address] [id number], [place] [address] Mar, [facility] [place] [facility] [address] [id number] [place] [address] Mar, [facility] [place] [facility] [address] [id number], [place] [address] 17 Mar, 2012 [facility] [place] [facility] [address] [id number] [place] [address] 15 Mar, 2012 [facility] [place] [facility] [address] [id number] [place] [address] 15 Mar, 2012 [facility] [place] [facility] [address] [id number], [place] [address] 15 Mar, 2012 [facility] [place] [facility] [address] [id number] [place] [address] 133[address] 15 Mar, 2012 [facility] [place] [facility] [address] [id number] [place] [address] Mar, [facility] [place] [facility] [address] [id number] [place] [address] Mar, [facility] [place] [facility] [address] [id number] [place] [address] Mar, [facility] [place] [facility] [address] [id number] [place] [address] 08 Mar, 2012 [facility] [place] [facility] [address] [id number] [place] [address] 03 Mar, 2012 [facility] [place] [facility] [address] [facility] [id number] [place] [address] Mar, [facility] [place] [facility] [address] [id number], [place] [address] 19 Feb, 2012 [facility] [place] [facility] [address] [id number] [place] [address] 18 Sep2011 [facility] [place] [facility] [address] [facility] [id number], [place] [address]- [address] 17 Sep2011 [facility] [place] [facility] [address] [facility] [id number], [place] [address] 14 Sep2011 [facility] [place] [facility] [address] [id number], [place] [address] 14 Sep, 2011 [facility] [place] [facility] [address] [id number], [place] [address] 12 Sep2011 [facility] [place] [facility] [address] [id number], [place] [address] 10 Feb, 2012 [facility] [place] [facility] [address] [facility] [id number], [place] [address] 31 Jan, 2012 [facility] [place] [facility] [address] [id number], [place] [address] Jan, [facility] [place] [facility] [address] [id number] [place] [address] Jan, [facility] [place] [facility] [address] [id number] [place] [address] Jan, [facility] [place] [facility] [address] [id number] [place] [address] Jan, [facility] [place] [facility] [address] [id number] [place] [address] Jan, [facility] [place] [facility] [address] [id number] [place] [address] Jan, [facility] [place] [facility] [address] [id number] [place] [address] Jan, [facility] [place] [facility] [address] [id number] [place] [address] Jan, [facility] [place] [facility] [address] [id number] [place] [address] Jan, [facility] [place] [facility] [address] [id number] [place] [address] Dec, [facility] [place] [facility] [address] [id number] [place] [address] Dec, [facility] [place] [facility] [address] [id number] [place] [address] 1988 Dec, [facility] [place] [facility] [address] [id number] [place] [address] Dec, [facility] [place] [facility] [address] [id number] [place] [address] Dec, [facility] [place] [facility] [address] [id number] [place] [address] Dec, [facility] [place] [facility] [address] [id number] [place] [address] 16 Dec, 2011 [facility] [place] [facility] [address] [facility] [id number], [place] [address] 14 Dec, 2011 [facility] [address] [facility] [id number], [place] [address] 12 Dec, 2011 [facility] [address] [facility] [id number], [place] [address] Dec, [facility] [address] [facility] [id number], [place] [address] 06 Dec, 2011 [facility] [address] [facility] [id number], [place] [address] 29 Nov, 2011 [facility] [address] [facility] [id number], [place] [address] Nov, [facility] [address] [facility] [id number], [place] [address] Nov, [facility] [id number], [place] [address] Nov, [facility] [address] [id number], [place] [address] Nov, [facility] [id number], [place] [address] Nov, [facility] [address] [id number], [place] [address] Nov, [facility] [address] [id number], [place] [address] 13 Nov, 2011 [facility] [address] [facility] [id number], [place] [address] Nov, [facility] [id number], [place] [address] 05 Nov, 2011 [facility] [address] [id number], [place] [address] October, IMMUNIZATIONS No Known Immunizations SOCIAL HISTORY [...]
--- OUTSIDE RECORDS SUMMARY | 2018-08-12 15:11 | XMS REPORT ---
Author Author SCARLET ALVES Organization [facility] Address [address] [place] [address] Care Team Providers Care Supervisor Molding Name Role Phone SCARLET ALVES Unavailable PROBLEMS Type Condition ICD9-CM Code MVP75-XX Code Onset Dates Condition Status SNOMED Code Problem Essential hypertension I10 Active 35988681 Problem Other chronic pain G89.29 Active 53822768 Problem 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 Active 80363449 Problem Other chronic pain G89.29 Active 07999535 Problem Intractable chronic migraine without aura and with status migrainosus G43.711 Active 022363820 Problem Primary insomnia F51.01 Active 6804803 Problem Seizure disorder G40.909 Active 751709352 Problem Moderate persistent asthma with exacerbation J45.41 Active 565517386 Problem Moderate persistent asthma without complication J45.40 Active 313532945 Problem Elevated liver enzymes R74.8 Active 331041270 Problem Hyperlipidemia LDL goal <100 E78.5 Active 46498229 Problem Hypokalemia E87.6 Active 73499567 Problem Tremor, hereditary, benign G25.0 Active 830821554 Problem Abnormal glucose R73.09 Active 944069112 Problem Irritable bowel K58.9 Active 05185656 Problem Major depressive disorder, recurrent episode, moderate F33.1 Active 934214284 Problem Chronic migraine without aura with status migrainosus, not intractable G43.701 Active 822055230 ALLERGIES No Information ENCOUNTERS Encounter Location Date Diagnosis [facility] [address] [facility] [id number] [address] Mar, [facility] [address] [address] 28 Feb, 2018 [facility] [address] [id number] [address] 6631 Feb, [facility] [id number] [address] 5920 Feb, [facility] [id number] [place] [address] 54738- 2497 Feb, [facility] [id number] [place] [address] 99394- 4742 Jan, [facility] [id number] [place] [address] 39742- 7258 Dec, [facility] [id number] [place] [address] 62310- 3834 Dec, Other chronic pain G89.29 ; Pain in right shoulder M25.511 and Liver enzyme elevation R74.8 [place] [id number] [place] [address] 95722- 1511 Nov, Other chronic pain G89.29 and Pain in right shoulder M25.511 [facility] [id number] [place] [address] 07889- 5471 October, [facility] [id number] [place] [address] 85583 -9187 October, Right shoulder pain, unspecified chronicity M25.511 [facility] [id number] [place] [address] 15112- 6018 Aug, Elevated liver enzymes R74.8 and Hyperlipidemia LDL goal < 100 E78.5 [facility] [id number] [place] [address] 77102- 2471 Aug, [facility] [id number] [place] [address] 82770- 8902 Jul, [facility] [id number] [place] [address] 61158- 8246 Jul, Intractable chronic migraine without aura and with status migrainosus G43.711 ; Fever, unspecified fever cause R50.9 and Elevated liver enzymes R74.8 [facility] [id number] [place] [address] 43609- 3816 Jun, Difficulty urinating R39.198 and Moderate persistent asthma with exacerbation J45.41 [place] [id number] [place] [address] 59719- 9016 Jun, [facility] [id number] [place] [address] 69545- 1509 Jun, Moderate persistent asthma with exacerbation J45.41 [place] [address] 09511- 6345 May, Elevated liver enzymes R74.8 and Hyperlipidemia LDL goal < 100 E78.5 [place] [address] 59825- 7967 May, Elevated lipids E78.5 [place] [address] 17243- 7474 Apr, Elevated liver enzymes R74.8 [place] [address] 44543- 0214 Apr, Elevated liver enzymes R74.8 [place] [address] 24347- 3159 Apr, Superior glenoid labrum lesion of right shoulder, subsequent encounter S43.431D [place] [id number] [place] [address] 11720- 9538 Apr, Hypokalemia E87.6 ; Major depressive disorder, recurrent episode, moderate F33.1 ; Other abnormalities of breathing R06.89 and Dyspnea, unspecified R06.00 [facility] [id number] [place] [address] 11900 -6571 Mar, Moderate persistent asthma without complication J45.40 [facility] [id number] [place] [address] 34121- 7497 Mar, Impingement syndrome of right shoulder M75.41 [facility] [id number] [place] [address] 93458- 4139 Jan, [facility] [id number] [place] [address] 07675- 1622 Jan, Chronic migraine without aura with status migrainosus, not intractable G43.701 ; Essential hypertension I10 ; Irritable bowel K58.9 ; Primary insomnia F51.01 and Hypokalemia E87.6 [facility] [id number] [place] [address] 16162- 8548 Dec, [facility] [id number] [place] [address] 65985- 9709 Dec, Pain in right shoulder M25.511 [facility] [id number] [place] [address] 97533- 6689 Dec, Essential hypertension I10 [facility] [id number] [place] [address] 84769- 7484 Dec, [facility] [id number] [place] [address] 68728- 5823 Nov, Essential hypertension I10 [facility] [id number] [place] [address] 32478- 7189 14 Nov, 2016 Pain in right shoulder M25.511 [facility] [id number] [place] [address] 25802- 3173 Nov, Pain in right shoulder M25.511 [facility] [id number] [place] [address] 53040- 3568 October, [facility] [id number] [place] [address] 94060- 6497 October, Pain in right shoulder M25.511 [facility] [id number] [place] [address] 50165- 0453 Sep, Arm pain, right M79.601 [facility] [id number] [place] [address] 73792- 2295 Sep, [facility] [id number] [place] [address] 47634- 3377 Sep, Abnormal glucose R73.09 and Elevated lipids E78.5 [place] [id number] [place] [address] 39809- 9649 Sep, Abnormal glucose R73.09 and Elevated lipids E78.5 [place] [id number] [place] [address] 01764- 1057 Aug, [place] [address] 02537- 0532 Aug, [place] [id number] [place] [address] 42827- 2550 Aug, [place] [address] 01893- 7621 Aug, 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 ; Hypokalemia E87.6 ; Irritable bowel K58.9 ; Essential hypertension I10 ; Pain in right shoulder M25.511 ; Seizure disorder G40.909 and Screening for lipid disorders Z13.220 [place] [id number] [place] [address] 87969- 2848 28 Jul, 2016 Other chronic pain G89.29 and Pain in right shoulder M25.511 [place] [id number] [place] [address] 54099- 7039 14 Jul, 2016 Biceps muscle strain, right, subsequent encounter S46.111D [facility] [id number] [place] [address] 96311 -2246 08 Jul, 2016 Arm pain, right M79.601 [place] [id number] [place] [address] 58639- 5568 Jun, [place] [id number] [place] [address] 85557- 0840 Jun, Acute non-recurrent frontal sinusitis J01.10 [place] [id number] [place] [address] 87573- 1080 May, Generalized abdominal pain R10.84 ; Urinary tract infection without hematuria, site unspecified N39.0 ; Hypokalemia E87.6 ; Essential hypertension I10 ; Screening for lipid disorders Z13.220 ; Seizure R56.9 and Low back pain M54.5 [place] [id number] [place] [address] 97083- 5513 Apr, [facility] [address] 26256 -4761 Feb, [place] [id number] [place] [address] 26183- 7188 Jan, [place] [address] 38207- 4805 Dec, 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 ; Hypokalemia E87.6 ; Irritable bowel K58.9 and Nausea R11.0 [facility] [place] [id number] [place] [address] 73474 -0418 Dec, Generalized abdominal pain R10.84 [place] [id number] [place] [address] 00940- 2088 Nov, [facility] [place] [id number] [place] [address] 86620 -9085 Aug, Acute bronchitis J20.9 [place] [id number] [place] [address] 15546- 4208 Aug, [place] [id number] [place] [address] 12770- 4149 08 Aug, 2015 Low back pain M54.5 ; Hypokalemia E87.6 ; Chronic migraine without aura with status migrainosus, not intractable G43.701 ; Tremor, hereditary, benign G25.0 ; Irritable bowel K58.9 ; Essential hypertension I10 and Seizure R56.9 [place] [id number] [place] [address] 42086- 6730 07 Aug, 2015 [place] [id number] [place] [address] 88505- 2057 Jul, [place] [address] 32284- 6377 Jul, Low back pain M54.5 ; Hypokalemia E87.6 ; Chronic migraine without aura with status migrainosus, not intractable G43.701 ; Tremor, hereditary, benign G25.0 ; Irritable bowel K58.9 ; Essential hypertension I10 and Seizure R56.9 [place] [id number] [place] [address] 32894- 5884 Jun, Hypokalemia E87.6 [place] [address] 96116- 4224 Jun, ADD (attention deficit disorder) without hyperactivity F90.0 ; Generalized anxiety disorder F41.1 and Major depressive disorder, recurrent episode, moderate F33.1 [place] [id number] [place] [address] 54495- 3323 Jun, Low back pain M54.5 ; Hypokalemia E87.6 ; Chronic migraine without aura with status migrainosus, not intractable G43.701 ; Tremor, hereditary, benign G25.0 ; Irritable bowel K58.9 ; Essential hypertension I10 and Seizure R56.9 [place] [id number] [place] [address] 44734- 5466 Jun, [place] [id number] [place] [address] 34350- 3586 May, [place] [id number] [place] [address] 86807- 8849 May, Low back pain M54.5 ; Hypokalemia E87.6 ; Chronic migraine without aura with status migrainosus, not intractable G43.701 ; Tremor, hereditary, benign G25.0 ; Irritable bowel K58.9 ; Essential hypertension I10 ; Seizure R56.9 and Tinea capitis B35.0 [place] [address] 81973- 6618 17 May, 2015 Low back pain M54.5 ; Hypokalemia E87.6 ; Chronic migraine without aura with status migrainosus, not intractable G43.701 ; Tremor, hereditary, benign G25.0 ; Irritable bowel K58.9 ; Essential hypertension I10 ; Seizure R56.9 ; Otitis media, left H66.92 and Dysuria 788.1 [place] [address] 91511- 0385 14 May, 2015 Tooth pain K08.8 [place] [address] 33218- 4569 May, [place] [address] 11710- 1294 May, Low back pain M54.5 ; Hypokalemia E87.6 ; Chronic migraine without aura with status migrainosus, not intractable G43.701 ; Tremor, hereditary, benign G25.0 ; Irritable bowel K58.9 and Essential hypertension I10 [place] [id number] [place] [address] 49865- 0023 Apr, Low back pain M54.5 ; Hypokalemia E87.6 ; Chronic migraine without aura with status migrainosus, not intractable G43.701 ; Tremor, hereditary, benign G25.0 and Irritable bowel K58.9 [place] [id number] [place] [address] 78690- 1631 Apr, Low back pain M54.5 [place] [address] 55098- 7099 Mar, [place] [address] 06770- 3629 Mar, Irritable bowel syndrome with diarrhea K58.0 [place] [address] 12131- 8446 Mar, [place] [address] [address]- 5574 Feb, [facility] [id number] [place] [address] 85850- 8923 Feb, [facility] [id number] [address]- 2564 Feb, Irritable bowel syndrome 564.1 ; Lumbago 724.2 and Cervical pain (neck) 723.1 [facility] [id number] [place] [address] 28426- 3394 Dec, Major depressive disorder, recurrent episode, moderate 296.32 and Generalized anxiety disorder 300.02 [facility] [id number] [place] [address] 80516- 8072 Nov, [facility] [id number] [place] [address] 52864- 8517 Nov, Major depressive disorder, recurrent episode, moderate 296.32 [facility] [address] [place] [address] 61797- 4826 Nov, Constipation 564.00 ; Nausea & vomiting 787.01 and Abdominal pain 789.00 [facility] [address] [address]- 9664 Nov, [facility] [address] [address]- 3421 October, [facility] [address] [address]- 4465 October, [facility] [address] [place] [address] 85864- 4668 October, [facility] [id number] [place] [address] 438171- 1603 October, [facility] [address] [address]- 4782 Sep, Dysuria 788.1 [facility] [address] [address]- 4667 30 Sep, 2014 [facility] [place] [facility] [address] [id number] [place] [address]- 6780 30 Sep, 2014 [facility] [place] [facility] [address] [id number] [place] [address]- 6796 14 Sep, 2014 [facility] [place] [facility] [address] [id number] [place] [address]- 4541 13 Sep, 2014 [facility] [place] [facility] [address] [id number] [place] [address]- 9486 30 Aug, 2014 [facility] [place] [facility] [address] [id number] [place] [address]- 3694 30 Aug, 2014 [facility] [place] [facility] [address] [id number] [place] [address]- 8702 Aug, [facility] [place] [facility] [address] [id number] [place] [address]- 9529 Aug, [facility] [place] [facility] [address] [id number] [place] [address]- 0290 Aug, [facility] [place] [facility] [address] [id number] [place] [address]- 4916 Aug, [facility] [place] [facility] [address] [id number] [place] [address]- 2849 Aug, [facility] [place] [facility] [address] [id number] [place] [address]- 5269 Aug, [facility] [place] [facility] [address] [id number] [place] [address]- 9041 Aug, [facility] [place] [facility] [address] [id number] [place] [address]- 1992 Aug, [facility] [place] [facility] [address] [id number] [place] [address]- 1776 Jun, [facility] [place] [facility] [address] [id number] [place] 2060 Jun, [facility] [place] [facility] [address] [id number] [place] [address]- 4655 Jun, [facility] [place] [facility] [address] [id number] [place] [address]- 6220 Jun, [facility] [place] [facility] [address] [id number] [place] [address]- 4995 May, [facility] [place] [facility] [address] [id number] [place] [address]- 0985 May, [facility] [place] [facility] [address] [id number] [place] [address]- 5528 May, [facility] [place] [facility] [address] [id number] [place] [address]- 6914 May, [facility] [place] [facility] [address] [id number] [place] [address]- 0075 May, [facility] [place] [facility] [address] [id number] [place] [address]- 6195 May, [facility] [place] [facility] [address] [id number] [place] [address]- 8492 May, [facility] [place] [facility] [address] [id number] [address]- 0245 May, [facility] [place] [facility] [address] [id number] [address]- 5351 Mar, [facility] [place] [facility] [address] [id number] [address]- 0706 Mar, [facility] [place] [facility] [address] [id number] [place] [address]- 3886 Mar, [facility] [place] [facility] [address] [id number] [place] [address]- 4736 Mar, [facility] [place] [facility] [address] [id number] [address]- 8226 Mar, [facility] [place] [facility] [address] [id number] [address]- 9935 Mar, [facility] [place] [facility] [address] [id number] [place] [address]- 1895 Mar, [facility] [place] [facility] [address] [id number] [place] [address]- 6385 Mar, [facility] [place] [facility] [address] [id number] [place] [address]- 7999 Mar, [facility] [place] [facility] [address] [id number] [place] [address]- 3417 Mar, [facility] [place] [facility] [address] [id number] [place] [address]- 4270 Mar, [facility] [place] [facility] [address] [id number] [place] [address]- 4012 Mar, [facility] [place] [facility] [address] [id number] [place] [address]- 4051 Feb, [facility] [place] [facility] [address] [id number] [place] [address]- 4557 24 Feb, 2014 [facility] [place] [facility] [address] [id number] [place] [address]- 2298 Feb, [facility] [place] [facility] [address] [id number] [place] [address]- 4764 Feb, [facility] [place] [facility] [address] [id number] [place] [address]- 2695 Feb, [facility] [place] [facility] [address] [id number] [address]- 5687 Feb, [facility] [place] [facility] [address] [id number] [place] [address]- 6286 Jan, [facility] [place] [facility] [address] [id number] [place] [address]- 3509 Jan, [facility] [place] [facility] [address] [facility] [id number] [place] [address]- 0002 Jan, [facility] [place] [facility] [address] [id number] [place] [address]- 8369 Jan, [facility] [place] [facility] [address] [id number] [place] [address]- 5073 Jan, [facility] [place] [facility] [address] [id number] [place] [address]- 1482 Jan, [facility] [place] [facility] [address] [id number] [place] [address]- 8476 Jan, [facility] [place] [facility] [address] [id number] [place] [address]- 8281 Jan, [facility] [place] [facility] [address] [id number] [place] [address]- 9907 Dec, [facility] [place] [facility] [address] [id number] [place] [address]- 4794 Dec, [facility] [place] [facility] [address] [id number] [place] [address]- 3696 Dec, [facility] [place] [facility] [address] [id number] [place] [address]- 8210 Dec, [facility] [place] [facility] [address] [id number] [place] [address]- 7372 Dec, [facility] [place] [facility] [address] [id number] [place] [address]- 2824 Dec, [facility] [place] [facility] [address] [id number] [place] [address]- 9398 Dec, [facility] [place] [facility] [address] [id number] [place] [address]- 4898 Dec, [facility] [place] [facility] [address] [id number] [place] [address]- 1365 October, [facility] [place] [facility] [address] [id number] [place] [address]- 4471 October, [facility] [place] [facility] [address] [id number] [place] [address]- 8249 Sep, [facility] [place] [facility] [address] [id number] [place] [address]- 7182 Sep, [facility] [place] [facility] [address] [id number] [place] [address]- 7289 Sep, [facility] [place] [facility] [address] [id number] [place] [address]- 3525 Sep, [facility] [place] [facility] [address] [id number] [place] [address]- 0159 Sep, [facility] [place] [facility] [address] [id number] [place] [address]- 5157 Sep, [facility] [place] [facility] [address] [id number] [place] [address]- 6296 Sep, [facility] [place] [facility] [address] [id number] [place] [address]- 6529 Sep, [facility] [place] [facility] [address] [id number] [place] [address]- 3061 Sep, [facility] [place] [facility] [address] [id number] [place] [address] Sep, [facility] [place] [facility] [address] [id number] [place] [address] Sep, [facility] [place] [facility] [address] [id number] [place] [address] Sep, [facility] [place] [facility] [address] [id number] [place] [address] Aug, [facility] [place] [facility] [address] [id number] [place] [address] Aug, [facility] [place] [facility] [address] [id number] [place] [address] Aug, [facility] [place] [facility] [address] [id number] [place] [address] Jun, [facility] [place] [facility] [address] [id number] [place] [address] 14 Jun, 2013 [facility] [address] [id number] [place] [address] 14 Jun, 2013 [facility] [place] [facility] [address] [id number] [place] [address] Jun, [facility] [address] [id number] [place] [address] Jun, [facility] [place] [facility] [address] [id number] [place] [address] Jun, [facility] [place] [facility] [address] [id number] [place] [address] Jun, [facility] [place] [facility] [address] [id number] [place] [address] Jun, [facility] [address] [id number] [place] [address] Jun, [facility] [place] [facility] [address] [id number] [place] [address] Jun, [facility] [place] [facility] [address] [id number] [place] [address] May, [facility] [place] [facility] [address] [id number] [place] [address] May, [facility] [place] [facility] [address] [id number] [place] [address]- [address] May, [facility] [place] [facility] [address] [id number] [place] [address]- [address] May, [facility] [place] [facility] [address] [id number] [place] [address] Apr, [facility] [place] [facility] [address] [id number] [place] [address]- [address] Apr, [facility] [place] [facility] [address] [id number] [place] [address] Apr, [facility] [place] [facility] [address] [id number] [place] [address]- [address] Apr, [facility] [place] [facility] [address] [id number] [place] [address]- [address] Apr, [facility] [place] [facility] [address] [id number] [place] [address]- [address] Apr, [facility] [place] [facility] [address] [id number] [place] [address] Apr, [facility] [place] [facility] [address] [id number] [place] [address] Apr, [facility] [place] [facility] [address] [id number] [place] [address] Mar, [facility] [place] [facility] [address] [id number] [place] [address] Mar, [facility] [place] [facility] [address] [id number] [place] [address] Mar, [facility] [place] [facility] [address] [id number] [place] [address] Mar, [facility] [place] [facility] [address] [id number] [place] [address] Mar, [facility] [place] [facility] [address] [id number] [place] [address] Feb, [facility] [place] [facility] [address] [id number] [address] Feb, [facility] [place] [facility] [address] [id number] [place] [address] 05 Feb, 2013 [facility] [place] [facility] [address] [id number] [place] [address] Feb, [facility] [place] [facility] [address] [id number] [place] [address] Feb, [facility] [place] [facility] [address] [id number] [place] [address] Jan, [facility] [address] [id number] [place] [address] Jan, [facility] [place] [facility] [address] [id number] [place] [address] Nov, [facility] [place] [facility] [address] [id number] [place] [address] Nov, [facility] [place] [facility] [address] [id number] [place] [address] Nov, [facility] [place] [facility] [address] [id number] [place] [address] Nov, [facility] [place] [facility] [address] [id number] [place] [address] October, [facility] [place] [facility] [address] [id number] [place] [address] Sep, [facility] [place] [facility] [address] [id number] [place] [address] Aug, [facility] [place] [facility] [address] [id number] [place] [address] Aug, [facility] [place] [facility] [address] [id number] [place] [address] Aug, [facility] [place] [facility] [address] [id number] [place] [address] Aug, [facility] [place] [facility] [address] [id number] [place] [address] Jul, [facility] [place] [facility] [address] [id number] [place] [address] Jun, [facility] [place] [facility] [address] [id number] [place] [address]28 Jun, [facility] [place] [facility] [address] [id number] [place] [address] May, [facility] [place] [facility] [address] [id number] [place] [address] May, [facility] [place] [facility] [address] [id number] [place] [id number] Mar, [facility] [place] [facility] [address] [id number] [place] [address] Mar, [facility] [address] [id number] [place] [address] Mar, [facility] [place] [facility] [address] [id number] [place] [address]99 Mar, [facility] [address] [id number] [place] [address] Mar, [facility] [place] [facility] [address] [id number] [place] [address]69 Mar, [facility] [place] [facility] [address] [id number] [place] [address] Mar, [facility] [address] [id number] [place] [address] Mar, [facility] [place] [facility] [address] [id number] [place] [address] Mar, [facility] [address] [id number] [place] [address] Mar, [facility] [place] [facility] [address] [id number] [place] [address] Mar, [facility] [address] [id number] [place] [address] Mar, [facility] [place] [facility] [address] [id number] [place] [address] Mar, [facility] [place] [facility] [address] [id number] [place] [address] Mar, [facility] [place] [facility] [address] [id number] [place] [address] 15 Mar, 2012 [facility] [place] [facility] [address] [id number] [place] [address] 69[address] 15 Mar, 2012 [facility] [place] [facility] [address] [id number] [place] [address] 59[address] 15 Mar, 2012 [facility] [place] [facility] [address] [id number] [place] [address] 77[address] Mar, [facility] [place] [facility] [address] [id number] [place] [address] Mar, [facility] [place] [facility] [address] [id number] [place] [address] 30[address] Mar, [facility] [place] [facility] [address] [id number] [place] [address] Mar, [facility] [place] [facility] [address] [facility] [id number] [place] [address] Mar, [facility] [place] [facility] [address] [id number] [place] [address] Mar, [facility] [place] [facility] [address] [id number] [place] [address]- 6229 19 Sep2011 [facility] [place] [facility] [address] [id number] [address]- 4743 18 Sep2011 [facility] [place] [facility] [address] [facility] [id number] [place] [address] 244[address] 17 Sep2011 [facility] [place] [facility] [address] [id number] [place] [address] 14 Sep, 2011 [facility] [place] [facility] [address] [id number] [place] [address]- 1511 14 Sep2011 [facility] [place] [facility] [address] [id number] [place] [address]- 3102 12 Sep2011 [facility] [place] [facility] [address] [facility] [id number] [place] [address]- [address] 10 Sep, 2011 [facility] [place] [facility] [address] [id number] [place] [address]- 1784 Jan, [facility] [place] [facility] [address] [id number] [place] [address]- 6[address] 30 Jan, 2012 [facility] [place] [facility] [address] [id number] [place] [address]- 9446 Jan, [facility] [place] [facility] [address] [id number] [place] [address]- [address]106 Jan, [facility] [place] [facility] [address] [id number] [place] [address]- 3656 Jan, [facility] [place] [facility] [address] [id number] [place] [address]- 8831 Jan, [facility] [place] [facility] [address] [id number] [place] [address] 68[address] Jan, [facility] [place] [facility] [address] [id number] [place] [address]- 8737 16 Jan, 2012 [facility] [place] [facility] [address] [id number] [place] [address] Jan, [facility] [place] [facility] [address] [id number] [place] [address] Jan, [facility] [place] [facility] [address] [id number] [place] [address] Dec, [facility] [place] [facility] [address] [id number] [place] [address] Dec, [facility] [place] [facility] [address] [id number] [place] [address]- 1412 Dec, [facility] [place] [facility] [address] [id number] [place] [address]- 1873 Dec, [facility] [place] [facility] [address] [id number] [place] [address]- [address]295 Dec, [facility] [place] [facility] [address] [id number] [place] [address]- 0246 17 Dec, 2011 [facility] [place] [facility] [address] [id number] [place] [address]- [address] 16 Dec, 2011 [facility] [place] [facility] [address] [id number] [place] [address]- [address]80 14 Dec, 2011 [facility] [place] [facility] [address] [id number] [place] [address]- [address] 12 Dec, 2011 [facility] [place] [facility] [address] [id number] [place] [address]- 6599 12 Dec, 2011 [facility] [place] [facility] [address] [id number] [place] [address]- [address] 06 Dec, 2011 [facility] [place] [facility] [address] [id number] [place] [address]- 5268 29 Nov, 2011 [facility] [place] [facility] [address] [id number] [place] [address]- 1674 Nov, [facility] [place] [facility] [address] [id number] [place] [address]- 7049 Nov, [facility] [place] [facility] [address] [id number] [place] [address]- 7[address] Nov, [facility] [place] [facility] [address] [id number] [place] [address]- 2191 Nov, [facility] [place] [facility] [address] [id number] [place] [address]- 1685 20 Nov, 2011 [facility] [place] [facility] [address] [id number] [place] [address]- 4123 Nov, [facility] [place] [facility] [address] [id number] [place] [address]- 8081 13 Nov, 2011 [facility] [place] [facility] [address] [id number] [place] [address]- 5942 Nov, [facility] [place] [facility] [address] [id number] [place] [address]- 0918 05 Nov, 2011 [facility] [place] [facility] [address] [id number] [place] [address]- 8436 October, IMMUNIZATIONS No Known Immunizations SOCIAL HISTORY Never Assessed REASON FOR VISIT Refill request PLAN OF CARE VITAL SIGNS MEDICATIONS Medication Instructions Dosage Frequency Start Date End Date Duration Status Amlodipine Besylate 2.5 MG Orally Once a day 1 tablet 24h Jan, Active RESULTS No Results PROCEDURES No Known [...]
--- OUTSIDE RECORDS SUMMARY | 2018-08-12 15:12 | XMS REPORT ---
Author Author SCARLET ALVES Organization [facility] Address [address] [place] [address] Care Team Providers Care Community Development Coordinator Name Role Phone SCARLET ALVES Unavailable PROBLEMS Type Condition ICD9-CM Code EVE97-RP Code Onset Dates Condition Status SNOMED Code Problem Essential hypertension I10 Active 39802688 Problem Other chronic pain G89.29 Active 67041853 Problem 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 Active 89533929 Problem Other chronic pain G89.29 Active 07809035 Problem Intractable chronic migraine without aura and with status migrainosus G43.711 Active 318801545 Problem Primary insomnia F51.01 Active 5197453 Problem Seizure disorder G40.909 Active 042621549 Problem Moderate persistent asthma with exacerbation J45.41 Active 260076036 Problem Moderate persistent asthma without complication J45.40 Active 034090122 Problem Elevated liver enzymes R74.8 Active 516177454 Problem Hyperlipidemia LDL goal <100 E78.5 Active 04053346 Problem Hypokalemia E87.6 Active 26440701 Problem Tremor, hereditary, benign G25.0 Active 333415551 Problem Abnormal glucose R73.09 Active 363048961 Problem Irritable bowel K58.9 Active 86645693 Problem Major depressive disorder, recurrent episode, moderate F33.1 Active 347524446 Problem Chronic migraine without aura with status migrainosus, not intractable G43.701 Active 795402030 ALLERGIES No Information ENCOUNTERS Encounter Location Date Diagnosis [facility] [address] [facility] [id number] [address] Feb, [facility] [address] [id number] [address] 164[address] Jan, [facility] [address] [id number], [place] [address] Dec, [facility] [id number] [place] [address] 59383- 6339 Dec, Other chronic pain G89.29 ; Pain in right shoulder M25.511 and Liver enzyme elevation R74.8 [place] [id number] [place] [address] 97458- 6234 Nov, Other chronic pain G89.29 and Pain in right shoulder M25.511 [place] [address] [address]- 3929 October, [facility] WALK IN [facility] [address] [address] October, Right shoulder pain, unspecified chronicity M25.511 [place] [address] [address]- 1991 Aug, Elevated liver enzymes R74.8 and Hyperlipidemia LDL goal < 100 E78.5 [place] [address] 85246- 9079 Aug, [place] [address] 43999- 4828 Jul, [place] [address] [address]45- 4075 Jul, Intractable chronic migraine without aura and with status migrainosus G43.711 ; Fever, unspecified fever cause R50.9 and Elevated liver enzymes R74.8 [place] [id number] [place] [address] 57636- 3831 Jun, Difficulty urinating R39.198 and Moderate persistent asthma with exacerbation J45.41 [place] [address] 95516- 7549 Jun, [place] [address] 83304- 4230 Jun, Moderate persistent asthma with exacerbation J45.41 [place] [address] 56216- 3030 May, Elevated liver enzymes R74.8 and Hyperlipidemia LDL goal < 100 E78.5 [place] [id number] [place] [address] 21995- 1360 May, Elevated lipids E78.5 [facility] [id number] [place] [address] 98019- 1710 Apr, Elevated liver enzymes R74.8 [facility] [id number] [place] [address] 38006- 4988 Apr, Elevated liver enzymes R74.8 [facility] [id number] [place] [address] 26891- 8140 Apr, Superior glenoid labrum lesion of right shoulder, subsequent encounter S43.431D [place] [id number] [place] [address] 11295- 1609 Apr, Hypokalemia E87.6 ; Major depressive disorder, recurrent episode, moderate F33.1 ; Other abnormalities of breathing R06.89 and Dyspnea, unspecified R06.00 [facility] WALK IN [facility] [id number] [place] [address] 69773 -6742 Mar, Moderate persistent asthma without complication J45.40 [facility] [id number] [place] [address] 83711- 0381 Mar, Impingement syndrome of right shoulder M75.41 [place] [id number] [place] [address] 27273- 7028 Jan, [place] [id number] [place] [address] 31001- 8759 Jan, Chronic migraine without aura with status migrainosus, not intractable G43.701 ; Essential hypertension I10 ; Irritable bowel K58.9 ; Primary insomnia F51.01 and Hypokalemia E87.6 [facility] [id number] [place] [address] 69395- 2906 Dec, [facility] [address] [place] [address]- 6750 Dec, Pain in right shoulder M25.511 [facility] [id number] [place] [address] 51641- 9588 Dec, Essential hypertension I10 [facility] [id number] [place] [address] 82692- 2111 Dec, [facility] [id number] [place] [address] 78132- 5012 30 Nov, 2016 Essential hypertension I10 [facility] [id number] [place] [address] 55653- 5029 14 Nov, 2016 Pain in right shoulder M25.511 [facility] [id number] [place] [address] 21193- 9760 Nov, Pain in right shoulder M25.511 [facility] [id number] [place] [address] 40353- 5287 October, [facility] [id number] [place] [address] 21408- 1636 October, Pain in right shoulder M25.511 [facility] [id number] [place] [address] 59949- 0632 Sep, Arm pain, right M79.601 [facility] [id number] [place] [address] 69842- 9951 Sep, [facility] [id number] [place] [address] 93133- 2451 Sep, Abnormal glucose R73.09 and Elevated lipids E78.5 [facility] [id number] [place] [address] 44026- 8086 Sep, Abnormal glucose R73.09 and Elevated lipids E78.5 [facility] [id number] [place] [address] 69294- 6542 Aug, [facility] [id number] [place] [address] 21370- 8886 Aug, [place] [id number] [place] [address] 05203- 7378 Aug, [place] [address] 82285- 1438 Aug, 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 ; Hypokalemia E87.6 ; Irritable bowel K58.9 ; Essential hypertension I10 ; Pain in right shoulder M25.511 ; Seizure disorder G40.909 and Screening for lipid disorders Z13.220 [place] [address] 40713- 9508 Jul, Other chronic pain G89.29 and Pain in right shoulder M25.511 [place] [address] 04087- 6693 14 Jul, 2016 Biceps muscle strain, right, subsequent encounter S46.111D [facility] WALK IN [address] [address] -[address]69 08 Jul, 2016 Arm pain, right M79.601 [place] [address] 80897- 0728 Jun, [place] [address] 24382- 7811 Jun, Acute non-recurrent frontal sinusitis J01.10 [facility] [id number] [place] [address] 14257- 8755 May, Generalized abdominal pain R10.84 ; Urinary tract infection without hematuria, site unspecified N39.0 ; Hypokalemia E87.6 ; Essential hypertension I10 ; Screening for lipid disorders Z13.220 ; Seizure R56.9 and Low back pain M54.5 [place] [id number] [place] [address] 04047- 7127 Apr, [facility] WALK IN [place] [address] 35661 -3045 Feb, [place] [id number] [place] [address] 12803- 3434 Jan, [place] [id number] [place] [address] 25568- 7143 Dec, 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 ; Hypokalemia E87.6 ; Irritable bowel K58.9 and Nausea R11.0 [facility] [id number] [place] [address] 61074 -1244 Dec, Generalized abdominal pain R10.84 [place] [id number] [place] [address] 44655- 6873 Nov, [facility] WALK IN [place] [id number] [place] [address] 01718 -1616 Aug, Acute bronchitis J20.9 [place] [id number] [place] [address] 52371- 0439 Aug, [place] [id number] [place] [address] 87576- 6026 Aug, Low back pain M54.5 ; Hypokalemia E87.6 ; Chronic migraine without aura with status migrainosus, not intractable G43.701 ; Tremor, hereditary, benign G25.0 ; Irritable bowel K58.9 ; Essential hypertension I10 and Seizure R56.9 [place] [id number] [place] [address] 94636- 1047 Aug, [place] [id number] [place] [address] 16478- 5268 Jul, [place] [id number] [place] [address] 00861- 5011 03 Jul, 2015 Low back pain M54.5 ; Hypokalemia E87.6 ; Chronic migraine without aura with status migrainosus, not intractable G43.701 ; Tremor, hereditary, benign G25.0 ; Irritable bowel K58.9 ; Essential hypertension I10 and Seizure R56.9 [place] [id number] [place] [address] 31617- 9395 20 Jun, 2015 Hypokalemia E87.[address] 70547- 2958 15 Jun, 2015 ADD (attention deficit disorder) without hyperactivity F90.0 ; Generalized anxiety disorder F41.1 and Major depressive disorder, recurrent episode, moderate F33.1 [place] [address] 34737- 1896 13 Jun, 2015 Low back pain M54.5 ; Hypokalemia E87.6 ; Chronic migraine without aura with status migrainosus, not intractable G43.701 ; Tremor, hereditary, benign G25.0 ; Irritable bowel K58.9 ; Essential hypertension I10 and Seizure R56.[address] 10594- 9347 Jun, [place] [address] 07905- 8813 May, [address] 37541- 2152 30 May, 2015 Low back pain M54.5 ; Hypokalemia E87.6 ; Chronic migraine without aura with status migrainosus, not intractable G43.701 ; Tremor, hereditary, benign G25.0 ; Irritable bowel K58.9 ; Essential hypertension I10 ; Seizure R56.9 and Tinea capitis B35.0 [place] [id number] [place] [address] 45265- 5731 17 May, 2015 Low back pain M54.5 ; Hypokalemia E87.6 ; Chronic migraine without aura with status migrainosus, not intractable G43.701 ; Tremor, hereditary, benign G25.0 ; Irritable bowel K58.9 ; Essential hypertension I10 ; Seizure R56.9 ; Otitis media, left H66.92 and Dysuria 788.1 [place] [address] 29440- 1350 14 May, 2015 Tooth pain K08.8 [facility] [id number] [place] [address] 41074- 3091 May, [facility] [id number] [place] [address] 72643- 3662 May, Low back pain M54.5 ; Hypokalemia E87.6 ; Chronic migraine without aura with status migrainosus, not intractable G43.701 ; Tremor, hereditary, benign G25.0 ; Irritable bowel K58.9 and Essential hypertension I10 [facility] [id number] [place] [address] 05351- 2396 Apr, Low back pain M54.5 ; Hypokalemia E87.6 ; Chronic migraine without aura with status migrainosus, not intractable G43.701 ; Tremor, hereditary, benign G25.0 and Irritable bowel K58.9 [place] [id number] [place] [address] 59392- 8154 Apr, Low back pain M54.5 [place] [id number] [place] [address] 26823- 6591 Mar, [place] [id number] [place] [address] 39714- 5045 Mar, Irritable bowel syndrome with diarrhea K58.0 [place] [id number] [place] [address] 76197- 6043 Mar, [facility] [id number] [place] [address] 62612- 2333 Feb, [facility] [id number] [place] [address] 84531- 3285 08 Feb, 2015 [place] [id number] [place] [address] 96905- 2001 Feb, Irritable bowel syndrome 564.1 ; Lumbago 724.2 and Cervical pain (neck) 723.1 [place] [address] [place] [address]- 0207 Dec, Major depressive disorder, recurrent episode, moderate 296.32 and Generalized anxiety disorder 300.02 [facility] [id number] [place] [address] 89425- 5195 Nov, [facility] [id number] [place] [address] 59715- 0588 Nov, Major depressive disorder, recurrent episode, moderate 296.32 [facility] [id number] [place] [address] 83598- 3194 Nov, Constipation 564.00 ; Nausea & vomiting 787.01 and Abdominal pain 789.00 [facility] [id number] [place] [address] 50172- 7950 Nov, [facility] [id number] [place] [address] 87725- 7835 October, [facility] [id number] [place] [address] 22371- 3237 October, [facility] [id number] [place] [address] 21818- 7688 October, [facility] [id number] [place] [address] 81139- 7286 October, [facility] [id number] [place] [address] 55325- 3744 Sep, Dysuria 788.1 [facility] [id number] [place] [address] 18788- 4244 Sep, [facility] [id number] [place] [address] 91290- 9283 Sep, [facility] [id number] [place] [address] 05692- 8974 Sep, [facility] [address] [address]- 3513 Sep, [facility] [address] [address]- 1267 30 Aug, 2014 [facility] [place] [facility] [address] [id number] [place] [address]- 1551 Aug, [facility] [place] [facility] [address] [id number] [place] [address]- 6926 Aug, [facility] [place] [facility] [address] [id number] [place] [address]- 8462 Aug, [facility] [place] [facility] [address] [id number] [place] [address]- 1325 Aug, [facility] [place] [facility] [address] [id number] [place] [address]- 0059 Aug, [facility] [place] [facility] [address] [id number] [place] [address]- 6717 Aug, [facility] [place] [facility] [address] [id number] [place] [address]- 7069 Aug, [facility] [place] [facility] [address] [id number] [place] [address]- 5209 Aug, [facility] [place] [facility] [address] [id number] [place] [address]- 0570 Aug, [facility] [place] [facility] [address] [id number] [place] [address]- 7010 Jun, [facility] [place] [facility] [address] [id number] [place] [address]- 2016 Jun, [facility] [place] [facility] [address] [id number] [place] [address]- 4749 Jun, [facility] [place] [facility] [address] [id number] [place] [address]- 1532 Jun, [facility] [place] [facility] [address] [id number] [place] [address]- 2762 May, [facility] [place] [facility] [address] [id number] [place] 8383 May, [facility] [place] [facility] [address] [id number] [place] [address]- 0921 May, [facility] [place] [facility] [address] [id number] [place] [address]- 9106 May, [facility] [place] [facility] [address] [id number] [place] 5218 May, [facility] [place] [facility] [address] [id number] [place] [address]- 7328 May, [facility] [place] [facility] [address] [id number] [place] 3508 May, [facility] [place] [facility] [address] [id number] [place] [address]- 0595 May, [facility] [place] [facility] [address] [id number] [place] [address]- 9559 Mar, [facility] [place] [facility] [address] [id number] [place] [address]- 6502 Mar, [facility] [place] [facility] [address] [id number] [place] [address]- 5568 Mar, [facility] [place] [facility] [address] [id number], [place] [address]- 6594 Mar, [facility] [place] [facility] [address] [id number], [place] [address]- 7846 Mar, [facility] [place] [facility] [address] [id number], [place] [address]- 5215 Mar, [facility] [place] [facility] [address] [id number] [place] [address]- 2030 Mar, [facility] [place] [facility] [address] [id number] [place] [address]- 6238 Mar, [facility] [place] [facility] [address] [id number] 7220 Mar, [facility] [place] [facility] [address] [id number], [place] [address]- 6116 Mar, [facility] [place] [facility] [address] [id number] [place] [address]- 0483 Mar, [facility] [place] [facility] [address] [id number] [place] [address]- 7856 Mar, [facility] [place] [facility] [address] [id number] [place] [address]- 5254 Feb, [facility] [place] [facility] [address] [id number] [place] [address]- 4226 Feb, [facility] [place] [facility] [address] [id number] [place] [address]- 4075 Feb, [facility] [place] [facility] [address] [id number] [place] [address]- 3763 Feb, [facility] [place] [facility] [address] [id number] [place] [address]- 8862 Feb, [facility] [place] [facility] [address] [id number] [place] [address]- 6281 Feb, [facility] [place] [facility] [address] [id number] [place] [address]- 4312 Jan, [facility] [place] [facility] [address] [id number] [place] [address]- 4961 Jan, [facility] [place] [facility] [address] [id number] [place] [address]- 9095 Jan, [facility] [place] [facility] [address] [id number] [place] [address]- 2596 Jan, [facility] [place] [facility] [address] [id number] [place] [address]- 5630 Jan, [facility] [place] [facility] [address] [id number] [place] [address]- 3274 Jan, [facility] [place] [facility] [address] [id number] [place] [address]- 2958 Jan, [facility] [place] [facility] [address] [id number] [place] [address]- 3609 Jan, [facility] [place] [facility] [address] [id number] [place] [address]- 7412 Dec, [facility] [place] [facility] [address] [id number] [place] [address]- 9136 Dec, [facility] [place] [facility] [address] [id number] [place] [address]- 8156 Dec, [facility] [place] [facility] [address] [id number] [place] [address]- 4453 Dec, [facility] [place] [facility] [address] [id number] [place] [address]- 1105 Dec, [facility] [place] [facility] [address] [id number] [place] [address]- 3095 Dec, [facility] [place] [facility] [address] [id number] [place] [address]- 1963 Dec, [facility] [place] [facility] [address] [id number] [place] [address]- 6007 Dec, [facility] [place] [facility] [address] [id number] [place] [address]- 2268 October, [facility] [place] [facility] [address] [id number] [place] [address]- 2622 October, [facility] [place] [facility] [address] [id number] [place] [address]- 6411 Sep, [facility] [place] [facility] [address] [id number] [place] [address]- 5609 Sep, [facility] [place] [facility] [address] [id number] [place] [address]- 1937 Sep, [facility] [place] [facility] [address] [id number] [place] [address]- 1152 Sep, [facility] [place] [facility] [address] [id number] [place] [address]- 8405 Sep, [facility] [place] [facility] [address] [id number] [place] [address] Sep, [facility] [place] [facility] [address] [id number] [place] [address] Sep, [facility] [place] [facility] [address] [id number] [place] [address] Sep, [facility] [place] [facility] [address] [id number] [place] [address] Sep, [facility] [place] [facility] [address] [id number] [place] [address] Sep, [facility] [place] [facility] [address] [id number] [place] [address] Sep, [facility] [place] [facility] [address] [id number] [place] [address] Sep, [facility] [place] [facility] [address] [id number] [place] [address] Aug, [facility] [place] [facility] [address] [id number] [place] [address] Aug, [facility] [place] [facility] [address] [id number] [place] [address] Aug, [facility] [place] [facility] [address] [id number] [place] [address] Jun, [facility] [place] [facility] [address] [id number] [place] [address] Jun, [facility] [place] [facility] [address] [id number] [place] [address] Jun, [facility] [place] [facility] [address] [id number] [place] [address] Jun, [facility] [place] [facility] [address] [id number] [place] [address] Jun, [facility] [place] [facility] [address] [id number] [place] [address] Jun, [facility] [address] [id number] [place] [address] Jun, [facility] [place] [facility] [address] [id number] [place] [address] Jun, [facility] [address] [id number] [place] [address] Jun, [facility] [place] [facility] [address] [id number] [place] [address] Jun, [facility] [address] [id number] [place] [address] May, [facility] [place] [facility] [address] [id number] [place] [address] May, [facility] [address] [id number] [place] [address] May, [facility] [place] [facility] [address] [id number] [place] [address] May, [facility] [place] [facility] [address] [id number] [place] [address] Apr, [facility] [place] [facility] [address] [facility] [id number] [place] [address] Apr, [facility] [place] [facility] [address] [id number] [place] [address] Apr, [facility] [place] [facility] [address] [id number] [place] [address] Apr, [facility] [place] [facility] [address] [id number] [place] [address] Apr, [facility] [place] [facility] [address] [id number] [place] [address] Apr, [facility] [place] [facility] [address] [id number] [place] [address] Apr, [facility] [place] [facility] [address] [id number] [place] [address] Apr, [facility] [place] [facility] [address] [id number] [place] [address] Mar, [facility] [place] [facility] [address] [id number] [place] [address] Mar, [facility] [place] [facility] [address] [id number] [place] [address] Mar, [facility] [place] [facility] [address] [id number] [place] [address] Mar, [facility] [place] [facility] [address] [id number] [place] [address] Mar, [facility] [place] [facility] [address] [id number] [place] [address] Feb, [facility] [place] [facility] [address] [address] [id number] [place] [address] Feb, [facility] [place] [facility] [address] [id number] [place] [address] Feb, [facility] [place] [facility] [address] [id number] [place] [address] Feb, [facility] [place] [facility] [address] [id number] [place] [address] Feb, [facility] [place] [facility] [address] [id number] [place] [address] Jan, [facility] [place] [facility] [address] [id number] [place] [address] Jan, [facility] [place] [facility] [address] [id number] [place] [address] Nov, [facility] [place] [facility] [address] [id number] [place] [address]5 Nov, [facility] [place] [facility] [address] [id number], [place] [address]46 Nov, [facility] [address] [id number] [place] [address] 14[address] Nov, [facility] [place] [facility] [address] [id number], [place] [address] October, [facility] [place] [facility] [address] [id number] [place] [address] 2546 Sep, [facility] [place] [facility] [address] [id number], [place] [address] Aug, [facility] [place] [facility] [address] [id number] [place] [address]796 Aug, [facility] [place] [facility] [address] [id number] [place] [address] 2546 Aug, [facility] [place] [facility] [address] [id number], [place] [address]56 Aug, [facility] [place] [facility] [address] [id number], [place] [address] Jul, [facility] [place] [facility] [address] [id number], [place] [address] Jun, [facility] [place] [facility] [address] [id number], [place] [address] 2546 Jun, [facility] [place] [facility] [address] [id number], [place] [address] May, [facility] [place] [facility] [address] [id number], [place] [address] May, [facility] [place] [facility] [address] [id number] [place] [id number] Mar, [facility] [place] [facility] [address] [id number], [place] [address] 2546 Mar, [facility] [place] [facility] [address] [id number], [place] [address] Mar, [facility] [place] [facility] [address] [id number] [place] [address] 4531 24 Mar, 2011 [facility] [place] [facility] [address] [id number] [place] [address] 3924 Mar, 2011 [facility] [place] [facility] [address] [id number] [place] [address]005 23 Mar, 2011 [facility] [address] [id number] [place] [address] 7820 23 Mar, 2011 [facility] [place] [facility] [address] [id number] [place] [address]955 Mar, 2011 [facility] [address] [id number] [place] [address]- 6588 22 Mar, 2011 [facility] [place] [facility] [address] [id number] [place] [address] 3961 20 Mar, 2011 [facility] [place] [facility] [address] [id number] [place] [address] 2749 20 Mar, 2012 [facility] [place] [facility] [address] [id number] [place] [address] 5369 17 Mar, 2012 [facility] [place] [facility] [address] [id number] [place] [address] 5561 17 Mar, 2012 [facility] [address] [id number] [place] [address] 3106 15 Mar, 2012 [facility] [place] [facility] [address] [id number] [place] [address] 6932 15 Mar, 2011 [facility] [place] [facility] [address] [id number] [place] [address] 9040 15 Mar, 2012 [facility] [place] [facility] [address] [id number] [place] [address]- 4819 15 Mar, 2012 [facility] [place] [facility] [address] [id number] [place] [address] 8157 11 Mar, 2012 [facility] [place] [facility] [address] [id number] [place] [address]- 5269 11 Mar, 2012 [facility] [place] [facility] [address] [id number] [place] [address] 2339 08 Mar, 2012 [facility] [place] [facility] [address] [id number] [place] [address]- 2656 08 Mar, 2012 [facility] [place] [facility] [address] [id number] [place] [address]- 8583 03 Mar, 2012 [facility] [place] [facility] [address] [id number] [place] [address] 8370 Mar, [facility] [place] [facility] [address] [id number] [place] [address]- 9213 19 Feb, 2012 [facility] [place] [facility] [address] [id number] [place] [address] 0087 18 Feb, 2012 [facility] [place] [facility] [address] [id number] [place] [address]- 5160 17 Feb, 2012 [facility] [place] [facility] [address] [id number] [place] [address]- 7068 14 Feb, 2012 [facility] [place] [facility] [address] [id number] [place] [address]- 3768 14 Feb, 2012 [facility] [place] [facility] [address] [id number] [place] [address]- 5359 12 Feb, 2012 [facility] [place] [facility] [address] [id number] [place] [address]- 2380 10 Feb, 2012 [facility] [place] [facility] [address] [id number], [place] [address]200 31 Jan, 2012 [facility] [place] [facility] [address] [id number] [place] [address]- 3394 30 Jan, 2012 [facility] [place] [facility] [address] [id number] [place] [address]- 8928 22 Jan, 2012 [facility] [place] [facility] [address] [id number], [place] [address] Jan, [facility] [place] [facility] [address] [id number], [place] [address] 2224 17 Jan, 2012 [facility] [place] [facility] [address] [id number] [place] [address]- 6420 17 Jan, 2012 [facility] [place] [facility] [address] [id number] [place] [address]- 5192 17 Jan, 2012 [facility] [place] [facility] [address] [id number] [place] [address]- 9073 16 Jan, 2012 [facility] [place] [facility] [address] [id number] [place] [address]- 7960 13 Jan, 2012 [facility] [place] [facility] [address] [id number] [place] [address]- 4489 Jan, [facility] [place] [facility] [address] [id number] [place] [address]- 2579 26 Dec, 2011 [facility] [place] [facility] [address] [id number] [place] [address]- 4439 24 Dec, 2011 [facility] [place] [facility] [address] [id number] [place] [address]- 2368 23 Dec, 2011 [facility] [place] [facility] [address] [id number] [place] [address]- 3906 19 Dec, 2011 [facility] [place] [facility] [address] [id number] [place] [address]- 7682 18 Dec, 2011 [facility] [place] [facility] [address] [id number] [place] [address]- 9037 17 Dec, 2011 [facility] [place] [facility] [address] [id number] [place] [address]- 9926 16 Dec, 2011 [facility] [place] [facility] [address] [id number] [place] [address]- 4068 14 Dec, 2011 [facility] [place] [facility] [address] [id number] [place] [address]- 7259 Dec, [facility] [place] [facility] [address] [id number] [place] [address]- 2300 12 Dec, 2011 [facility] [place] [facility] [id number], [place] [address] 3942 Dec, [facility] [id number], [place] [address] 8685 29 Nov, 2011 [facility] [id number], [place] [address] 2506 Nov, [facility] [id number] [place] [address]- 9594 Nov, [facility] [id number], [place] [address] 8816 Nov, [facility] [id number] [place] [address] 40[address]- 7687 Nov, [facility] [id number] [place] [address]- 4624 Nov, [facility] [id number] [place] [address]- 8675 Nov, [facility] [id number] [place] [address]- 0990 Nov, [facility] [id number] [place] [address]- 9369 Nov, [facility] [id number], [place] [address] 9380 Nov, [facility] [id number], [place] [address] 2292 October, IMMUNIZATIONS No Known Immunizations SOCIAL HISTORY [...]
--- OUTSIDE RECORDS SUMMARY | 2018-08-12 15:12 | XMS REPORT ---
Author Author SCARLET ALVES Organization [facility] Address [address] [place] [address] Care Team Providers Care Clinical Laboratory Science Professor Name Role Phone SCARLET ALVES Unavailable PROBLEMS Type Condition ICD9-CM Code HQS41-OF Code Onset Dates Condition Status SNOMED Code Problem Essential hypertension I10 Active 22571455 Problem Other chronic pain G89.29 Active 01040482 Problem 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 Active 87816094 Problem Other chronic pain G89.29 Active 79954090 Problem Intractable chronic migraine without aura and with status migrainosus G43.711 Active 030967337 Problem Primary insomnia F51.01 Active 7153227 Problem Seizure disorder G40.909 Active 434073217 Problem Moderate persistent asthma with exacerbation J45.41 Active 568719002 Problem Moderate persistent asthma without complication J45.40 Active 843205796 Problem Elevated liver enzymes R74.8 Active 825450036 Problem Hyperlipidemia LDL goal <100 E78.5 Active 11821579 Problem Hypokalemia E87.6 Active 07097689 Problem Tremor, hereditary, benign G25.0 Active 336952606 Problem Abnormal glucose R73.09 Active 677678560 Problem Irritable bowel K58.9 Active 52984821 Problem Major depressive disorder, recurrent episode, moderate F33.1 Active 903401425 Problem Chronic migraine without aura with status migrainosus, not intractable G43.701 Active 909486507 ALLERGIES Substance Reaction Event Type Date Status Morphine Sulfate rebound headaches Drug Allergy Dec, Active Gabapentin coma Drug Allergy Dec, Active Baclofen anaphylaxis Drug Allergy Dec, Active Amoxicillin itching Drug Allergy Dec, Active NSAIDS Hallucinations Non Drug Allergy Dec, Active ENCOUNTERS Encounter Location Date Diagnosis [facility] [address] [facility] [id number] [address] Feb, [facility] [address] [facility] [id number] [address] Jan, [facility] [address] [place] [id number] [place] [address]4493- 1457 Dec, [facility] [address] [address]- 4914 Dec, Other chronic pain G89.29 ; Pain in right shoulder M25.511 and Liver enzyme elevation R74.8 [facility] [address] [address]- 3493 Nov, Other chronic pain G89.29 and Pain in right shoulder M25.511 [place] [address] [address]- [address]148 October, [facility] [address] [address] October, Right shoulder pain, unspecified chronicity M25.511 [place] [address] 66247- 4074 Aug, Elevated liver enzymes R74.8 and Hyperlipidemia LDL goal < 100 E78.5 [place] [address] 81133- 0530 Aug, [place] [address] 25298- 4501 Jul, [place] [address] [place] [id number] [place] [address] 84573- 5849 Jul, Intractable chronic migraine without aura and with status migrainosus G43.711 ; Fever, unspecified fever cause R50.9 and Elevated liver enzymes R74.8 [place] [address] 83059- 6148 Jun, Difficulty urinating R39.198 and Moderate persistent asthma with exacerbation J45.41 [place] [address] 90827- 0037 Jun, [place] [address] [place] [address] Jun, Moderate persistent asthma with exacerbation J45.41 [place] [address] 03323- 9445 May, Elevated liver enzymes R74.8 and Hyperlipidemia LDL goal < 100 E78.5 [place] [address] 73714- 9283 May, Elevated lipids E78.5 [place] [address] 22963- 6085 Apr, Elevated liver enzymes R74.8 [place] [address] 60971- 1814 Apr, Elevated liver enzymes R74.8 [place] [address] 60920- 1530 Apr, Superior glenoid labrum lesion of right shoulder, subsequent encounter S43.431D [place] [address] [place] [id number] [place] [address] 41051- 7408 Apr, Hypokalemia E87.6 ; Major depressive disorder, recurrent episode, moderate F33.1 ; Other abnormalities of breathing R06.89 and Dyspnea, unspecified R06.00 [facility] [address] [place] [id number] [place] [address] 00937 -7145 Mar, Moderate persistent asthma without complication J45.40 [place] [address] 43900- 4491 Mar, Impingement syndrome of right shoulder M75.41 [place] [address] 51482- 0206 Jan, [place] [address] 28417- 1764 Jan, Chronic migraine without aura with status migrainosus, not intractable G43.701 ; Essential hypertension I10 ; Irritable bowel K58.9 ; Primary insomnia F51.[address] [facility] [id number] [place] [address] 06088- 4405 Dec, [facility] [address] [id number] [place] [address] 55612- 2706 Dec, Essential hypertension I10 [facility] [id number] [place] [address] 87852 2546 Dec, [facility] [address] [id number] [place] [address] 78684- 6084 Dec, Pain in right shoulder M25.511 [facility] [id number] [place] [address] 78379- 8151 Nov, Essential hypertension I10 [facility] [address] [place] [place] [id number] [place] [address] 95813- 7601 Nov, Pain in right shoulder M25.511 [facility] [id number] [place] [address] 47513- 2845 Nov, Pain in right shoulder M25.511 [facility] [id number] [place] [address] 39034- 5583 October, [facility] [id number] [place] [address] 83443- 9469 October, Pain in right shoulder M25.511 [facility] [id number] [place] [address] 07723- 5618 Sep, Arm pain, right M79.601 [facility] [address] [id number] [place] [address] 73792- 5367 Sep, [facility] [id number] [place] [address] 37723- 1832 Sep, Abnormal glucose R73.09 and Elevated lipids E78.5 [facility] [address] [place] [id number] [place] [address] 29371- 9134 Sep, Abnormal glucose R73.09 and Elevated lipids E78.5 [place] [address] [place] [id number] [place] [address] 62178- 1329 Aug, [place] [address] 70126- 1402 Aug, [place] [address] [place] [id number] [place] [address] 48771- 9441 Aug, [place] [address] 39514- 4161 Aug, 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 ; Hypokalemia E87.6 ; Irritable bowel K58.9 ; Essential hypertension I10 ; Pain in right shoulder M25.511 ; Seizure disorder G40.909 and Screening for lipid disorders Z13.220 [place] [address] 68268- 5702 Jul, Other chronic pain G89.29 and Pain in right shoulder M25.511 [place] [address] 44648- 5581 14 Jul, 2016 Biceps muscle strain, right, subsequent encounter S46.111D [facility] [place] [address] 17457 -6246 08 Jul, 2016 Arm pain, right M79.601 [place] [address] [place] [id number] [place] [address] 37531- 5436 Jun, [place] [address] 85120- 5111 Jun, Acute non-recurrent frontal sinusitis J01.10 [place] [address] 95702- 6995 14 May, 2016 Generalized abdominal pain R10.84 ; Urinary tract infection without hematuria, site unspecified N39.0 ; Hypokalemia E87.6 ; Essential hypertension I10 ; Screening for lipid disorders Z13.220 ; Seizure R56.9 and Low back pain M54.5 [place] [address] [place] [address]- 8077 Apr, [facility] [address] [place] [id number] [place] [address] 46003 -[address]3 Feb, [facility] [address] [id number] [place] [address] 72081- 7417 Jan, [facility] [address] [place] [id number] [place] [address] 06654- 7358 Dec, 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 ; Hypokalemia E87.6 ; Irritable bowel K58.9 and Nausea R11.0 [facility] [address] [place] [id number] [place] [address] 58663 -4862 Dec, Generalized abdominal pain R10.84 [place] [address] [place] [id number] [place] [address] 50403- 8352 Nov, [facility] [address] [place] [id number] [place] [address] 51728 -1994 Aug, Acute bronchitis J20.9 [place] [address] [place] [id number] [place] [address] 16179- 0359 Aug, [place] [address] [place] [id number] [place] [address] 22542- 9423 Aug, Low back pain M54.5 ; Hypokalemia E87.6 ; Chronic migraine without aura with status migrainosus, not intractable G43.701 ; Tremor, hereditary, benign G25.0 ; Irritable bowel K58.9 ; Essential hypertension I10 and Seizure R56.9 [place] [address] [place] [id number] [place] [address] 96221- 4369 Aug, [place] [address] [place] [id number] [place] [address] 26153- 1087 09 Jul, 2015 [facility] [address] [place] [id number] [place] [address] 13208- 8239 Jul, Low back pain M54.5 ; Hypokalemia E87.6 ; Chronic migraine without aura with status migrainosus, not intractable G43.701 ; Tremor, hereditary, benign G25.0 ; Irritable bowel K58.9 ; Essential hypertension I10 and Seizure R56.9 [place] [address] [place] [id number] [place] [address] 14543- 6972 20 Jun, 2015 Hypokalemia E87.6 [place] [address] 26784- 4004 15 Jun, 2015 ADD (attention deficit disorder) without hyperactivity F90.0 ; Generalized anxiety disorder F41.1 and Major depressive disorder, recurrent episode, moderate F33.1 [place] [address] 13739- 9029 13 Jun, 2015 Low back pain M54.5 ; Hypokalemia E87.6 ; Chronic migraine without aura with status migrainosus, not intractable G43.701 ; Tremor, hereditary, benign G25.0 ; Irritable bowel K58.9 ; Essential hypertension I10 and Seizure R56.9 [place] [address] [place] [id number] [place] [address] 27868- 1035 04 Jun, 2015 [place] [address] 18098- 1141 May, [place] [address] 52336- 7414 30 May, 2015 Low back pain M54.5 ; Hypokalemia E87.6 ; Chronic migraine without aura with status migrainosus, not intractable G43.701 ; Tremor, hereditary, benign G25.0 ; Irritable bowel K58.9 ; Essential hypertension I10 ; Seizure R56.9 and Tinea capitis B35.0 [place] [address] [place] [id number] [place] [address] 75004- 6919 17 May, 2015 Low back pain M54.5 ; Hypokalemia E87.6 ; Chronic migraine without aura with status migrainosus, not intractable G43.701 ; Tremor, hereditary, benign G25.0 ; Irritable bowel K58.9 ; Essential hypertension I10 ; Seizure R56.9 ; Otitis media, left H66.92 and Dysuria 788.1 [place] [address] 76084- 3385 14 May, 2015 Tooth pain K08.8 [place] [address] 70965- 1166 May, [facility] [address] 96856- 7283 May, Low back pain M54.5 ; Hypokalemia E87.6 ; Chronic migraine without aura with status migrainosus, not intractable G43.701 ; Tremor, hereditary, benign G25.0 ; Irritable bowel K58.9 and Essential hypertension I10 [place] [address] 97754- 7816 18 Apr, 2015 Low back pain M54.5 ; Hypokalemia E87.6 ; Chronic migraine without aura with status migrainosus, not intractable G43.701 ; Tremor, hereditary, benign G25.0 and Irritable bowel K58.9 [place] [address] 15105- 1339 Apr, Low back pain M54.5 [place] [address] [place] [id number] [place] [address] 29734- 8237 Mar, [place] [address] 34804- 8517 Mar, Irritable bowel syndrome with diarrhea K58.0 [facility] [address] 72285- 2247 Mar, [place] [address] 13347- 1950 Feb, [place] [address] 79742- 2522 Feb, [place] [address] [place] [address] 7172 Feb, Irritable bowel syndrome 564.1 ; Lumbago 724.2 and Cervical pain (neck) 723.1 [facility] [address] [place] [id number] [place] [address] 988446- 6283 Dec, Major depressive disorder, recurrent episode, moderate 296.32 and Generalized anxiety disorder 300.02 [facility] [address] [place] [id number] [place] [address] 00468485- 3285 Nov, [facility] [address] [place] [id number] [place] [address] 317536- 7706 Nov, Major depressive disorder, recurrent episode, moderate 296.32 [facility] [address] [place] [id number] [place] [address] 92675- 6393 Nov, Constipation 564.00 ; Nausea & vomiting 787.01 and Abdominal pain 789.00 [facility] [address] [place] [id number] [place] [address] 67283- 1641 Nov, [facility] [address] [id number] [place] [address] 08942- 2349 October, [facility] [address] [place] [id number] [place] [address] 12097- 9413 October, [facility] [address] [place] [id number] [place] [address] 16482- 2102 October, [facility] [address] [place] [id number] [place] [address] [id number]- 4848 October, [facility] [address] [place] [id number] [place] [address] [id number]- 4199 Sep, [facility] [address] [place] [id number] [place] [address] [id number]- 0777 Sep, Dysuria 788.1 [facility] [address] [id number] [place] [address] 488149- 0824 Sep, [facility] [address] [place] [id number] [place] [address] 57748- 2597 14 Sep, 2014 [facility] [place] [facility] [address] [id number] [place] [address]- 1262 13 Sep, 2014 [facility] [place] [facility] [address] [id number] [place] [address]- 3598 30 Aug, 2014 [facility] [place] [facility] [address] [id number] [place] [address]- 5053 Aug, [facility] [place] [facility] [address] [id number] [place] [address]- 3360 Aug, [facility] [place] [facility] [address] [id number] [place] [address]- 7005 Aug, [facility] [place] [facility] [address] [id number] [place] [address]- 7716 Aug, [facility] [place] [facility] [address] [id number] [place] [address]- 6562 Aug, [facility] [place] [facility] [address] [id number] [place] [address]- 0779 Aug, [facility] [place] [facility] [address] [id number] [place] [address]- 0070 Aug, [facility] [place] [facility] [address] [id number] [place] [address]- 2804 Aug, [facility] [place] [facility] [address] [id number] [place] [address]- 3830 Aug, [facility] [place] [facility] [address] [id number] [place] [address]- 5794 Jun, [facility] [place] [facility] [address] [id number] [place] [address]- 0363 Jun, [facility] [place] [facility] [address] [id number] [place] [address]- 3492 Jun, [facility] [place] [facility] [address] [id number] [place] [address]- 2607 Jun, [facility] [place] [facility] [address] [id number] [place] [address]- 6297 May, [facility] [place] [facility] [address] [id number] [place] 6885 May, [facility] [place] [facility] [address] [id number] [place] 6963 May, [facility] [place] [facility] [address] [id number] [place] [address]- 1497 May, [facility] [place] [facility] [address] [id number] [place]- 3386 May, [facility] [place] [facility] [address] [id number] [place] 8935 May, [facility] [place] [facility] [address] [id number] [place] [address]- 3771 May, [facility] [place] [facility] [address] [id number] [place] [address]- 5822 May, [facility] [place] [facility] [address] [id number] [place] [address]- 9834 Mar, [facility] [place] [facility] [address] [id number] [place] [address]- 0483 Mar, [facility] [place] [facility] [address] [id number] [place] [address]- 6356 Mar, [facility] [place] [facility] [address] [id number] [place] [address]- 0200 Mar, [facility] [place] [facility] [address] [id number] [place] [address]- 6226 Mar, [facility] [place] [facility] [address] [id number] [place] [address]- 1335 Mar, [facility] [place] [facility] [address] [id number] [place] [address]- 6232 Mar, [facility] [place] [facility] [address] [id number] [place] [address]- 2202 Mar, [facility] [place] [facility] [address] [id number] [place] [address]- 3810 Mar, [facility] [place] [facility] [address] [id number] [place] [address]- 7617 Mar, [facility] [place] [facility] [address] [id number] [place] [address]- 9868 Mar, [facility] [place] [facility] [address] [id number] [place] [address]- 7220 Mar, [facility] [place] [facility] [address] [id number] [place] [address]- 2599 Feb, [facility] [place] [facility] [address] [id number] [place] [address]- 8449 Feb, [facility] [place] [facility] [address] [id number] [place] [address]- 7659 Feb, [facility] [place] [facility] [address] [id number] [place] [address]- 4007 Feb, [facility] [place] [facility] [address] [id number] [place] [address]- 6245 Feb, [facility] [place] [facility] [address] [id number] [place] [address]- 8392 Feb, [facility] [place] [facility] [address] [id number] [place] [address]- 9248 Jan, [facility] [place] [facility] [address] [id number] [place] [address]- 5411 Jan, [facility] [place] [facility] [address] [id number] [place] [address]- 8379 Jan, [facility] [place] [facility] [address] [id number] [place] [address]- 3219 Jan, [facility] [place] [facility] [address] [id number] [place] [address]- 4899 Jan, [facility] [place] [facility] [address] [id number] [place] [address]- 5969 Jan, [facility] [place] [facility] [address] [id number] [place] [address]- 6551 Jan, [facility] [place] [facility] [address] [id number] [place] [address]- 9629 Jan, [facility] [place] [facility] [address] [id number] [place] [address]- 5874 Dec, [facility] [place] [facility] [address] [id number] [place] [address]- 7332 Dec, [facility] [place] [facility] [address] [id number] [place] [address]- 5039 Dec, [facility] [place] [facility] [address] [id number] [place] [address]- 0685 Dec, [facility] [place] [facility] [address] [id number] [place] [address]- 5058 Dec, [facility] [place] [facility] [address] [id number] [place] [address]- 8869 Dec, [facility] [place] [facility] [address] [id number] [place] [address]- 5118 Dec, [facility] [place] [facility] [address] [id number] [place] [address]- 0677 Dec, [facility] [place] [facility] [address] [id number] [place] [address]- 5597 October, [facility] [place] [facility] [address] [id number] [place] [address]- 3520 October, [facility] [place] [facility] [address] [id number] [place] [address]- 7558 Sep, [facility] [place] [facility] [address] [id number] [place] [address]- 6188 Sep, [facility] [place] [facility] [address] [id number] [place] [address]- 3811 Sep, [facility] [place] [facility] [address] [id number] [place] [address]- 5679 Sep, [facility] [place] [facility] [address] [id number] [place] [address]- 7971 Sep, [facility] [place] [facility] [address] [id number] [place] [address]- 3514 Sep, [facility] [place] [facility] [address] [id number] [place] [address]- 2624 Sep, [facility] [place] [facility] [address] [id number] [place] [address]- 8678 Sep, [facility] [place] [facility] [address] [id number] [place] [address]- 2065 Sep, [facility] [place] [facility] [address] [id number] [place] [address]- 2634 Sep, [facility] [place] [facility] [address] [id number] [place] [address]- 3091 Sep, [facility] [place] [facility] [address] [id number] [place] [address]- 9283 Sep, [facility] [place] [facility] [address] [id number] [place] [address]- 6446 Aug, [facility] [place] [facility] [address] [id number] [place] [address]- 2179 Aug, [facility] [place] [facility] [address] [id number] [place] [address]- 0980 Aug, [facility] [place] [facility] [address] [id number] [place] [address]- [address] Jun, [facility] [place] [facility] [address] [id number] [place] [address] Jun, [facility] [place] [facility] [address] [id number] [place] [address] Jun, [facility] [place] [facility] [address] [id number] [place] [address] Jun, [facility] [place] [facility] [address] [id number] [place] [address] Jun, [facility] [place] [facility] [address] [id number] [place] [address] Jun, [facility] [place] [facility] [address] [id number] [place] [address] Jun, [facility] [place] [facility] [address] [id number] [place] [address] Jun, [facility] [place] [facility] [address] [id number] [place] [address] Jun, [facility] [place] [facility] [address] [id number] [place] [address] Jun, [facility] [place] [facility] [address] [id number] [place] [address] May, [facility] [place] [facility] [address] [id number] [place] [address] May, [facility] [place] [facility] [address] [id number] [place] [address] May, [facility] [place] [facility] [address] [id number] [place] [address] May, [facility] [place] [facility] [address] [id number], [place] [address] Apr, [facility] [place] [facility] [address] [id number], [place] [address] Apr, [facility] [place] [facility] [address] [id number] [place] [address] Apr, [facility] [place] [facility] [address] [id number] [place] [address] Apr, [facility] [place] [facility] [address] [id number] [place] [address] Apr, [facility] [place] [facility] [address] [id number] [place] [address] Apr, [facility] [address] [id number] [place] [address] Apr, [facility] [place] [facility] [address] [id number] [place] [address] Apr, [facility] [address] [id number] [place] [address] Mar, [facility] [place] [facility] [address] [id number] [place] [address] Mar, [facility] [place] [facility] [address] [id number] [place] [address] Mar, [facility] [place] [facility] [address] [id number] [place] [address] Mar, [facility] [address] [id number] [place] [address] Mar, [facility] [address] [id number] [place] [address] Feb, [facility] [place] [facility] [address] [id number] [place] [address] Feb, [facility] [place] [facility] [address] [id number] [place] [address] Feb, [facility] [place] [facility] [address] [id number] [place] [address] Feb, [facility] [place] [facility] [address] [id number] [place] [address] Feb, [facility] [place] [facility] [address] [id number] [place] [address] Jan, [facility] [place] [facility] [address] [id number] [place] [address] Jan, [facility] [place] [facility] [address] [id number] [place] [address] Nov, [facility] [place] [facility] [address] [id number] [place] [address] Nov, [facility] [place] [facility] [address] [id number] [place] [address] Nov, [facility] [address] [id number] [place] [address] Nov, [facility] [place] [facility] [address] [id number] [place] [address] October, [facility] [address] [id number] [place] [address] Sep, [facility] [place] [facility] [address] [id number] [place] [address] Aug, [facility] [address] [id number] [place] [address] Aug, [facility] [address] [id number] [place] [address] Aug, [facility] [address] [id number] [place] [address] Aug, [facility] [address] [id number] [place] [address] Jul, [facility] [address] [id number], [place] [address] Jun, [facility] [place] [facility] [address] [id number], [place] [address] Jun, [facility] [place] [facility] [address] [id number] [place] [address] May, [facility] [place] [facility] [address] [id number] [place] [address] May, [facility] [place] [facility] [address] [id number] [place] [id number] Mar, [facility] [place] [facility] [address] [id number], [place] [address] Mar, [facility] [place] [facility] [address] [id number] [place] [address] Mar, [facility] [place] [facility] [address] [id number], [place] [address] Mar, [facility] [place] [facility] [address] [id number] [place] [address] Mar, [facility] [place] [facility] [address] [id number], [place] [address] Mar, [facility] [place] [facility] [address] [id number] [place] [address] Mar, [facility] [place] [facility] [address] [id number] [place] [address] Mar, [facility] [place] [facility] [address] [id number], [place] [address] Mar, [facility] [place] [facility] [address] [id number], [place] [address] Mar, [facility] [place] [facility] [address] [id number], [place] [address] Mar, [facility] [place] [facility] [address] [id number], [place] [address] Mar, [facility] [place] [facility] [address] [id number], [place] [address] 17 Mar, 2012 [facility] [place] [facility] [address] [id number], [place] [address] 15 Mar, 2012 [facility] [place] [facility] [address] [id number], [place] [address] 15 Mar, 2012 [facility] [place] [facility] [address] [id number], [place] [address] 15 Mar, 2012 [facility] [place] [facility] [address] [id number], [place] [address] 15 Mar, 2012 [facility] [place] [facility] [address] [id number] [place] [address] 11 Mar, 2012 [facility] [place] [facility] [address] [id number] [place] [address] 11 Mar, 2012 [facility] [place] [facility] [address] [id number] [place] [address] 08 Mar, 2012 [facility] [place] [facility] [address] [id number] [place] [address] 08 Mar, 2012 [facility] [place] [facility] [address] [id number] [place] [address] 03 Mar, 2012 [facility] [place] [facility] [address] [id number] [place] [address] Mar, [facility] [place] [facility] [address] [id number] [place] [address] 19 Feb, 2012 [facility] [place] [facility] [address] [id number] [place] [address] 18 Feb, 2012 [facility] [place] [facility] [address] [id number] [place] [address] 17 Feb, 2012 [facility] [place] [facility] [address] [id number] [place] [address] 14 Feb, 2012 [facility] [place] [facility] [address] [id number] [place] [address] 14 Feb, 2012 [facility] [place] [facility] [address] [id number] [place] [address]43 12 Feb, 2012 [facility] [place] [facility] [address] [id number] [place] [address]42 10 Feb, 2012 [facility] [place] [facility] [address] [id number] [place] [address] 31 Jan, 2012 [facility] [place] [facility] [address] [id number] [place] [address] 30 Jan, 2012 [facility] [place] [facility] [address] [id number] [place] [address] Jan, [facility] [place] [facility] [address] [id number] [place] [address] Jan, [facility] [place] [facility] [address] [id number] [place] [address] Jan, [facility] [place] [facility] [address] [id number] [place] [address] Jan, [facility] [place] [facility] [address] [id number] [place] [address] Jan, [facility] [place] [facility] [address] [id number] [place] [address] Jan, [facility] [place] [facility] [address] [id number] [place] [address] Jan, [facility] [place] [facility] [address] [id number] [place] [address] Jan, [facility] [place] [facility] [address] [id number] [place] [address] Dec, [facility] [place] [facility] [address] [id number] [place] [address] Dec, [facility] [place] [facility] [address] [id number] [place] [address] Dec, [facility] [place] [facility] [address] [id number] [place] [address] Dec, [facility] [place] [facility] [address] [id number] [place] [address] 18 Dec, 2011 [facility] [place] [facility] [address] [id number] [place] [address] Dec, [facility] [place] [facility] [address] [id number] [place] [address] 16 Dec, 2011 [facility] [place] [facility] [address] [id number] [place] [address] 1548 14 Dec, 2011 [facility] [place] [facility] [address] [id number], [place] [address] Dec, [facility] [id number] [address] Dec, [facility] [id number] [address] Dec, [facility] [id number] [address] Nov, [facility] [id number] [address] Nov, [facility] [id number] [address] Nov, [facility] [id number] [address] Nov, [facility] [id number] [address] Nov, [facility] [id number] [address] Nov, [facility] [id number] [address] Nov, [facility] [id number] [address]69 Nov, [facility] [id number] [address] Nov, [facility] [address] [id number], [place] [address] Nov, [facility] [address] [id number], [place] [address] October, IMMUNIZATIONS No Known Immunizations SOCIAL HISTORY Never Assessed REASON FOR VISIT Transition of Care from Ginny Randall PLAN OF CARE VITAL SIGNS Height 65 in 2017-12-18 Weight 182.5 lbs 2017-12-18 Temperature 98.2 degrees Fahrenheit 2017-12-18 Heart Rate 72 bpm 2017-12-18 Respiratory Rate 20 2017-12-18 BMI 30.37 kg/m2 2017-12-18 Blood pressure systolic 134 mmHg 2017-12-18 Blood pressure diastolic 90 mmHg 2017-12-18 MEDICATIONS Medication Instructions Dosage Frequency Start Date End Date Duration Status Propranolol HCl 80MG Orally Twice a day 1 tablet 12h Active Amitriptyline HCl 10MG Orally Once a day 1 tablet at hs 24h Active Sumatriptan Succinate 25 MG 1 tablet as needed at onset of headache, may repeat once in 2 hours if needed Jul, Not-Taking Albuterol Sulfate 108 (90 Base) mcg/act inhale 2 puffs by inhalation route every 4-6 hours as neededPRNcough or wheezing Nov, Active Omeprazole 40 mg Orally Once a day 1 capsule 24h May, Not- Taking Qvar 40 MCG/ACT Inhalation Twice a day with spacer device 2 puffs Jun Not-Taking Amlodipine Besylate 2.5 MG Orally Once a day 1 tablet 24h Jan, Active Pravastatin Sodium 20 mg Orally Once a day 1 tablet 24h May, Not-Taking Dicyclomine HCl 20MG Orally Four times a day-Must have appt for further refills 1 tablet 24 Active Promethazine-Codeine 6.25-10 MG/5ML Orally at hs prn 5 ml as needed Not-Taking Zanaflex 4 MG Orally 2 times a day 1 tablet as needed 12h Dec, Active Zofran 8 MG Orally 3 times a day 1 tablet as needed 8h 10 days Not- Taking Microspacer - by inhalation route twice a day with inhaler as directed Jun, Not-Taking RESULTS No Results PROCEDURES Procedure Date Ordered Result Body [facility] December 18, 2017 VENIPUNCT, ROUTINE* December 18, 2017 INSTRUCTIONS MEDICATIONS ADMINISTERED No Known Medications [...] History hysterectomy-total 2005 Surgical History lower GI Archerraghav Valdez -not sure results Surgical History EGD [...]
--- OUTSIDE RECORDS SUMMARY | 2018-08-12 15:13 | XMS REPORT ---
Author Author SCARLET ALVES Organization [facility] Address [address] [place] [address] Care Team Providers Care Manager Web Name Role Phone SCARLET ALVES Unavailable PROBLEMS Type Condition ICD9-CM Code OES15-CX Code Onset Dates Condition Status SNOMED Code Problem Essential hypertension I10 Active 72298886 Problem Other chronic pain G89.29 Active 08080959 Problem 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 Active 32830509 Problem Other chronic pain G89.29 Active 21733734 Problem Intractable chronic migraine without aura and with status migrainosus G43.711 Active 525301249 Problem Primary insomnia F51.01 Active 2213990 Problem Seizure disorder G40.909 Active 517862819 Problem Moderate persistent asthma with exacerbation J45.41 Active 743739393 Problem Moderate persistent asthma without complication J45.40 Active 054834931 Problem Elevated liver enzymes R74.8 Active 577549738 Problem Hyperlipidemia LDL goal <100 E78.5 Active 98756519 Problem Hypokalemia E87.6 Active 50418070 Problem Tremor, hereditary, benign G25.0 Active 739215310 Problem Abnormal glucose R73.09 Active 490984249 Problem Irritable bowel K58.9 Active 91180570 Problem Major depressive disorder, recurrent episode, moderate F33.1 Active 864700236 Problem Chronic migraine without aura with status migrainosus, not intractable G43.701 Active 837308757 ALLERGIES Substance Reaction Event Type Date Status Morphine Sulfate rebound headaches Drug Allergy Nov, Active Gabapentin coma Drug Allergy Nov, Active Baclofen anaphylaxis Drug Allergy Nov, Active Amoxicillin itching Drug Allergy Nov, Active NSAIDS Hallucinations Non Drug Allergy Nov, Active ENCOUNTERS Encounter Location Date Diagnosis [facility] [address] [facility] [id number] [address] Jan, [facility] [address] [facility] [id number] [address] Dec, [facility] [id number] [place] [address] 88398- 7204 Dec, Other chronic pain G89.29 ; Pain in right shoulder M25.511 and Liver enzyme elevation R74.8 [facility] [id number] [place] [address] 88211- 6192 Nov, Other chronic pain G89.29 and Pain in right shoulder M25.511 [facility] [id number] [place] [address] 36463- 5500 October, [facility] [address] [address] -[address]78 October, Right shoulder pain, unspecified chronicity M25.511 [place] [id number] [place] [address] 46109- 0622 Aug, Elevated liver enzymes R74.8 and Hyperlipidemia LDL goal < 100 E78.5 [place] [id number] [place] [address] 03431- 0485 Aug, [place] [address] 37588- 6309 Jul, [place] [id number] [place] [address] 53573- 1012 Jul, Intractable chronic migraine without aura and with status migrainosus G43.711 ; Fever, unspecified fever cause R50.9 and Elevated liver enzymes R74.8 [place] [id number] [place] [address] 64662- 4102 Jun, Difficulty urinating R39.198 and Moderate persistent asthma with exacerbation J45.41 [place] [address] 80282- 9524 Jun, [place] [id number] [place] [address] 31611- 0860 Jun, Moderate persistent asthma with exacerbation J45.41 [place] [id number] [place] [address] 66489- 2658 May, Elevated liver enzymes R74.8 and Hyperlipidemia LDL goal < 100 E78.5 [place] [id number] [place] [address] 19738- 1424 May, Elevated lipids E78.5 [facility] [id number] [place] [address] 01972- 2330 Apr, Elevated liver enzymes R74.8 [place] [id number] [place] [address] 59768- 0716 Apr, Elevated liver enzymes R74.8 [place] [id number] [place] [address] 59936- 5719 Apr, Superior glenoid labrum lesion of right shoulder, subsequent encounter S43.431D [place] [id number] [place] [address] 84412- 2580 Apr, Hypokalemia E87.6 ; Major depressive disorder, recurrent episode, moderate F33.1 ; Other abnormalities of breathing R06.89 and Dyspnea, unspecified R06.00 [facility] [id number] [place] [address] 15887 -2591 Mar, Moderate persistent asthma without complication J45.40 [place] [id number] [place] [address] 77038- 7341 Mar, Impingement syndrome of right shoulder M75.41 [facility] [id number] [place] [address] 62068- 3685 Jan, [place] [id number] [place] [address] 14284- 9951 Jan, Chronic migraine without aura with status migrainosus, not intractable G43.701 ; Essential hypertension I10 ; Irritable bowel K58.9 ; Primary insomnia F51.01 and Hypokalemia E87.6 [facility] [id number] [place] [address] 93278- 5313 Dec, [facility] [id number] [place] [address] 98107- 1957 Dec, Pain in right shoulder M25.511 [facility] [id number] [place] [address] 89993- 7146 Dec, Essential hypertension I10 [facility] [id number] [place] [address] 26766 2546 Dec, [facility] [id number] [place] [address] 95629- 0604 Nov, Essential hypertension I10 [facility] [id number] [place] [address] 01388- 8380 Nov, Pain in right shoulder M25.511 [facility] [id number] [place] [address] 06408- 8654 Nov, Pain in right shoulder M25.511 [facility] [id number] [place] [address] 54794- 7858 October, [facility] [id number] [place] [address] 30467- 8022 October, Pain in right shoulder M25.511 [facility] [id number] [place] [address] 33827- 2152 Sep, Arm pain, right M79.601 [facility] [id number] [place] [address] 70308- 7148 Sep, [facility] [id number] [place] [address] 06851- 0760 Sep, Abnormal glucose R73.09 and Elevated lipids E78.5 [facility] [id number] [place] [address] 09837- 6479 Sep, Abnormal glucose R73.09 and Elevated lipids E78.5 [facility] [id number] [place] [address] 88739- 6302 Aug, [place] [id number] [place] [address] 50246- 6861 Aug, [place] [address] 16931- 7841 Aug, [place] [id number] [place] [address] 18521- 3025 Aug, 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 ; Hypokalemia E87.6 ; Irritable bowel K58.9 ; Essential hypertension I10 ; Pain in right shoulder M25.511 ; Seizure disorder G40.909 and Screening for lipid disorders Z13.220 [place] [address] 48638- 8280 Jul, Other chronic pain G89.29 and Pain in right shoulder M25.511 [place] [id number] [place] [address] 81872- 6277 14 Jul, 2016 Biceps muscle strain, right, subsequent encounter S46.111D [facility] [place] [id number] [place] [address] 22413 -8710 Jul, Arm pain, right M79.601 [place] [id number] [place] [address] 66772- 4102 Jun, [place] [id number] [place] [address] 70690- 5822 Jun, Acute non-recurrent frontal sinusitis J01.10 [place] [id number] [place] [address] 55974- 3344 May, Generalized abdominal pain R10.84 ; Urinary tract infection without hematuria, site unspecified N39.0 ; Hypokalemia E87.6 ; Essential hypertension I10 ; Screening for lipid disorders Z13.220 ; Seizure R56.9 and Low back pain M54.5 [place] [id number] [place] [address] 77650- 5028 Apr, [facility] [place] [id number] [address] Feb, [place] [id number] [place] [address] 38582- 1826 Jan, [place] [id number] [place] [address] 74500- 3978 Dec, 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 ; Hypokalemia E87.6 ; Irritable bowel K58.9 and Nausea R11.0 [facility] [id number] [place] [address] 12028 -8457 Dec, Generalized abdominal pain R10.84 [place] [id number] [place] [address] 76723- 1011 Nov, [facility] [id number] [place] [address] 54786 -0628 Aug, Acute bronchitis J20.9 [place] [id number] [place] [address] 06702- 5896 Aug, [place] [id number] [place] [address] 93378- 8495 Aug, Low back pain M54.5 ; Hypokalemia E87.6 ; Chronic migraine without aura with status migrainosus, not intractable G43.701 ; Tremor, hereditary, benign G25.0 ; Irritable bowel K58.9 ; Essential hypertension I10 and Seizure R56.9 [place] [id number] [place] [address] 28550- 9399 Aug, [place] [id number] [place] [address] 42321- 3099 Jul, [place] [id number] [place] [address] 57372- 6041 03 Jul, 2015 Low back pain M54.5 ; Hypokalemia E87.6 ; Chronic migraine without aura with status migrainosus, not intractable G43.701 ; Tremor, hereditary, benign G25.0 ; Irritable bowel K58.9 ; Essential hypertension I10 and Seizure R56.9 [place] [id number] [place] [address] 65129- 0245 20 Jun, 2015 Hypokalemia E87.6 [place] [id number] [place] [address] 93529- 7366 15 Jun, 2015 ADD (attention deficit disorder) without hyperactivity F90.0 ; Generalized anxiety disorder F41.1 and Major depressive disorder, recurrent episode, moderate F33.1 [place] [id number] [place] [address] 77224- 6852 13 Jun, 2015 Low back pain M54.5 ; Hypokalemia E87.6 ; Chronic migraine without aura with status migrainosus, not intractable G43.701 ; Tremor, hereditary, benign G25.0 ; Irritable bowel K58.9 ; Essential hypertension I10 and Seizure R56.9 [place] [id number] [place] [address] 45818- 3386 04 Jun, 2015 [place] [id number] [place] [address] 03954- 3231 31 May, 2015 [place] [id number] [place] [address] 05525- 4396 30 May, 2015 Low back pain M54.5 ; Hypokalemia E87.6 ; Chronic migraine without aura with status migrainosus, not intractable G43.701 ; Tremor, hereditary, benign G25.0 ; Irritable bowel K58.9 ; Essential hypertension I10 ; Seizure R56.9 and Tinea capitis B35.0 [place] [id number] [place] [address] 71598- 9989 17 May, 2015 Low back pain M54.5 ; Hypokalemia E87.6 ; Chronic migraine without aura with status migrainosus, not intractable G43.701 ; Tremor, hereditary, benign G25.0 ; Irritable bowel K58.9 ; Essential hypertension I10 ; Seizure R56.9 ; Otitis media, left H66.92 and Dysuria 788.1 [place] [id number] [place] [address] 28029- 1597 14 May, 2015 Tooth pain K08.8 [place] [id number] [place] [address] 71643- 6608 May, [place] [id number] [place] [address] 41455- 1075 May, Low back pain M54.5 ; Hypokalemia E87.6 ; Chronic migraine without aura with status migrainosus, not intractable G43.701 ; Tremor, hereditary, benign G25.0 ; Irritable bowel K58.9 and Essential hypertension I10 [place] [id number] [place] [address] 11798- 5414 18 Apr, 2015 Low back pain M54.5 ; Hypokalemia E87.6 ; Chronic migraine without aura with status migrainosus, not intractable G43.701 ; Tremor, hereditary, benign G25.0 and Irritable bowel K58.9 [place] [id number] [place] [address] 30013- 2028 Apr, Low back pain M54.5 [place] [id number] [place] [address] 87127- 1929 Mar, [place] [id number] [place] [address] 50667- 9841 Mar, Irritable bowel syndrome with diarrhea K58.0 [place] [id number] [place] [address] 23049- 9281 Mar, [place] [id number] [place] [address] 38053- 5990 Feb, [place] [id number] [place] [address] 16945- 3394 08 Feb, 2015 [place] [id number] [place] [address] 82956- 8098 Feb, Irritable bowel syndrome 564.1 ; Lumbago 724.2 and Cervical pain (neck) 723.1 [facility] [id number] [place] [address] 81289- 1010 Dec, Major depressive disorder, recurrent episode, moderate 296.32 and Generalized anxiety disorder 300.02 [facility] [id number] [place] [address] 05320- 5580 Nov, [facility] [address] 84492- 9682 Nov, Major depressive disorder, recurrent episode, moderate 296.32 [facility] [id number] [place] [address] 95457- 4733 Nov, Constipation 564.00 ; Nausea & vomiting 787.01 and Abdominal pain 789.00 [facility] [id number] [place] [address] 42749- 2555 Nov, [facility] [id number] [place] [address] 17630- 9028 October, [facility] [id number] [place] [address] 10053- 9536 October, [facility] [id number] [place] [address] 65719- 9148 October, [facility] [id number] [place] [address] 72094- 3700 October, [facility] [id number] [place] [address] 78722- 1765 Sep, Dysuria 788.1 [facility] [id number] [place] [address] 50229- 0960 Sep, [facility] [id number] [place] [address] 13886- 7430 Sep, [facility] [id number] [place] [address] 09603- 9727 Sep, [facility] [id number] [place] [address] 55230- 3240 Sep, [facility] [place] [facility] [address] [id number] [place] [address]- 0405 Aug, [facility] [place] [facility] [address] [id number] [place] [address]- 4995 Aug, [facility] [place] [facility] [address] [id number] [place] [address]- 7875 Aug, [facility] [place] [facility] [address] [id number] [place] [address]- 6342 Aug, [facility] [place] [facility] [address] [id number] [place] [address]- 2911 Aug, [facility] [place] [facility] [address] [id number] [place] [address]- 4670 Aug, [facility] [place] [facility] [address] [id number] [place] [address]- 3009 Aug, [facility] [place] [facility] [address] [id number] [place] [address]- 3165 Aug, [facility] [place] [facility] [address] [id number] [place] [address]- 0385 Aug, [facility] [place] [facility] [address] [id number] [place] [address]- 3574 Aug, [facility] [place] [facility] [address] [id number] [place] [address]- 2505 Jun, [facility] [place] [facility] [address] [id number] [place] [address]- 6959 Jun, [facility] [place] [facility] [address] [id number] [place] [address]- 4658 Jun, [facility] [place] [facility] [address] [id number] [place] [address]- 0000 Jun, [facility] [place] [facility] [address] [id number] [place] [address]- 4156 May, [facility] [place] [facility] [address] [id number] [place] [address]- 6302 May, [facility] [place] [facility] [address] [id number] [place] [address]- 1615 May, [facility] [place] [facility] [address] [id number] [place] [address]- 2595 May, [facility] [place] [facility] [address] [id number] [place] [address]- 2242 May, [facility] [place] [facility] [address] [id number] [place] [address]- 5652 May, [facility] [place] [facility] [address] [id number] [place] [address]- 4296 May, [facility] [place] [facility] [address] [id number] [place]- 9145 May, [facility] [place] [facility] [address] [id number] [place] [address]- 5437 Mar, [facility] [place] [facility] [address] [id number] [place] [address]- 5556 Mar, [facility] [place] [facility] [address] [id number] [place] [address]- 7815 Mar, [facility] [place] [facility] [address] [id number] [place] [address]- 5726 Mar, [facility] [place] [facility] [address] [id number] [place] [address]- 3710 Mar, [facility] [place] [facility] [address] [id number] [place] [address]- 2626 Mar, [facility] [place] [facility] [address] [id number] [place] [address]- 8214 Mar, [facility] [place] [facility] [address] [id number] [place] [address]- 6545 Mar, [facility] [place] [facility] [address] [id number] [place] [address]- 2346 Mar, [facility] [place] [facility] [address] [id number] [place] [address]- 5963 Mar, [facility] [place] [facility] [address] [id number] [place] [address]- 1589 Mar, [facility] [place] [facility] [address] [id number] [place] [address]- 9308 Mar, [facility] [place] [facility] [address] [id number] [place] [address]- 1680 Feb, [facility] [place] [facility] [address] [id number] [place] [address]- 8871 Feb, [facility] [place] [facility] [address] [id number] [place] [address]- 3429 Feb, [facility] [place] [facility] [address] [id number] [place] [address]- 1338 Feb, [facility] [place] [facility] [address] [id number] [place] [address]- 5138 Feb, [facility] [place] [facility] [address] [id number] [place] [address]- 2047 Feb, [facility] [place] [facility] [address] [id number] [place] [address]- 0961 Jan, [facility] [place] [facility] [address] [id number] [place] [address]- 7612 Jan, [facility] [place] [facility] [address] [id number] [place] [address]- 0961 Jan, [facility] [place] [facility] [address] [id number] [place] [address]- 8177 Jan, [facility] [place] [facility] [address] [id number] [place] [address]- 6921 Jan, [facility] [place] [facility] [address] [id number] [place] [address]- 6505 Jan, [facility] [place] [facility] [address] [id number] [place] [address]- 0962 Jan, [facility] [place] [facility] [address] [id number] [place] [address]- 4491 Jan, [facility] [place] [facility] [address] [id number] [place] [address]- 2141 Dec, [facility] [place] [facility] [address] [id number] [place] [address]- 3154 Dec, [facility] [place] [facility] [address] [id number] [place] [address]- 0241 Dec, [facility] [place] [facility] [address] [id number] [place] [address]- 1263 Dec, [facility] [place] [facility] [address] [id number] [place] [address]- 4625 Dec, [facility] [place] [facility] [address] [id number] [place] [address]- 1193 Dec, [facility] [place] [facility] [address] [id number] [place] [address]- 5423 Dec, [facility] [place] [facility] [address] [id number] [place] [address]- 7333 Dec, [facility] [place] [facility] [address] [id number] [place] [address]- 5553 October, [facility] [place] [facility] [address] [id number] [place] [address]- 6035 October, [facility] [place] [facility] [address] [id number] [place] [address]- 9185 Sep, [facility] [place] [facility] [address] [id number] [place] [address]- 9342 Sep, [facility] [place] [facility] [address] [id number] [place] [address]- 0448 Sep, [facility] [place] [facility] [address] [id number] [place] [address]- 2096 Sep, [facility] [place] [facility] [address] [id number] [place] [address]- 2948 Sep, [facility] [place] [facility] [address] [id number] [place] [address]- 3737 Sep, [facility] [place] [facility] [address] [id number] [place] [address]- 1850 Sep, [facility] [place] [facility] [address] [id number] [place] [address]- 9049 Sep, [facility] [place] [facility] [address] [id number] [place] [address] Sep, [facility] [place] [facility] [address] [id number] [place] [address] Sep, [facility] [place] [facility] [address] [id number] [place] [address] Sep, [facility] [place] [facility] [address] [id number] [place] [address] Sep, [facility] [place] [facility] [address] [id number] [place] [address] Aug, [facility] [place] [facility] [address] [id number] [place] [address] Aug, [facility] [place] [facility] [address] [id number] [place] [address] Aug, [facility] [place] [facility] [address] [id number] [place] [address] Jun, [facility] [place] [facility] [address] [id number] [place] [address] Jun, [facility] [place] [facility] [address] [id number] [place] [address] Jun, [facility] [place] [facility] [address] [id number] [place] [address] Jun, [facility] [place] [facility] [address] [id number] [place] [address] Jun, [facility] [place] [facility] [address] [id number] [place] [address] Jun, [facility] [place] [facility] [address] [id number] [place] [address] Jun, [facility] [place] [facility] [address] [id number] [place] [address] Jun, [facility] [place] [facility] [address] [id number] [place] [address] Jun, [facility] [place] [facility] [address] [id number] [place] [address] Jun, [facility] [place] [facility] [address] [id number] [place] [address] May, [facility] [place] [facility] [address] [id number] [place] [address] May, [facility] [place] [facility] [address] [id number] [place] [address] May, [facility] [place] [facility] [address] [id number] [place] [address] May, [facility] [place] [facility] [address] [id number] [place] [address] Apr, [facility] [place] [facility] [address] [id number], [place] [address] Apr, [facility] [place] [facility] [address] [id number], [place] [address] Apr, [facility] [place] [facility] [address] [id number] [place] [address] Apr, [facility] [place] [facility] [address] [id number], [place] [address] Apr, [facility] [place] [facility] [address] [id number], [place] [address] Apr, [facility] [place] [facility] [address] [id number] [place] [address] Apr, [facility] [address] [id number] [place] [address] Apr, [facility] [place] [facility] [address] [id number] [place] [address] Mar, [facility] [address] [id number] [place] [address] Mar, [facility] [place] [facility] [address] [id number] [place] [address] Mar, [facility] [place] [facility] [address] [id number] [place] [address] Mar, [facility] [place] [facility] [address] [id number] [place] [address] Mar, [facility] [place] [facility] [address] [id number] [place] [address] Feb, [facility] [place] [facility] [address] [id number] [place] [address] Feb, [facility] [place] [facility] [address] [id number] [place] [address] 05 Feb, 2013 [facility] [place] [facility] [address] [id number] [place] [address] 05 Feb, 2013 [facility] [place] [facility] [address] [id number] [place] [address] 2547 Feb, [facility] [place] [facility] [address] [id number] [place] [address] Jan, [facility] [place] [facility] [address] [id number] [place] [address] Jan, [facility] [place] [facility] [address] [id number] [place] [address] Nov, [facility] [place] [facility] [address] [id number] [place] [address] Nov, [facility] [place] [facility] [address] [id number] [place] [address] 2547 Nov, [facility] [address] [id number] [place] [address] 2546 Nov, [facility] [address] [id number] [place] [address] October, [facility] [place] [facility] [address] [id number] [place] [address] 2546 Sep, [facility] [address] [id number] [place] [address] Aug, [facility] [place] [facility] [address] [id number] [place] [address] Aug, [facility] [place] [facility] [address] [id number] [place] [address] 2549 Aug, [facility] [address] [id number], [place] [address] 254 Aug, [facility] [address] [id number] [place] [address] Jul, [facility] [address] [id number], [place] [address] Jun, [facility] [place] [facility] [address] [id number], [place] [address] Jun, [facility] [place] [facility] [address] [id number], [place] [address] May, [facility] [place] [facility] [address] [id number] [place] [address] May, [facility] [place] [facility] [address] [id number] [id number] Mar, [facility] [place] [facility] [address] [id number] [place] [address] Mar, [facility] [place] [facility] [address] [id number], [place] [address] 24 Mar, 2012 [facility] [place] [facility] [address] [id number] [place] [address] 24 Mar, 2012 [facility] [place] [facility] [address] [id number], [place] [address] Mar, [facility] [place] [facility] [address] [id number] [place] [address] Mar, [facility] [place] [facility] [address] [id number] [place] [address] 1618 Mar, [facility] [place] [facility] [address] [id number] [place] [address] 37[address] Mar, [facility] [place] [facility] [address] [id number] [place] [address] Mar, [facility] [place] [facility] [address] [id number], [place] [address] Mar, [facility] [place] [facility] [address] [id number], [place] [address] Mar, [facility] [place] [facility] [address] [id number], [place] [address] 17 Mar, 2012 [facility] [place] [facility] [address] [id number], [place] [address] 3[address] 17 Mar, 2012 [facility] [place] [facility] [address] [id number], [place] [address] 15 Mar, 2012 [facility] [place] [facility] [address] [id number], [place] [address] 47[address] 15 Mar, 2012 [facility] [place] [facility] [address] [id number], [place] [address] 15 Mar, 2012 [facility] [place] [facility] [address] [id number], [place] [address] 3530 15 Mar, 2012 [facility] [place] [facility] [address] [id number], [place] [address] 4035 11 Mar, 2012 [facility] [place] [facility] [address] [id number] [place] [address] 3609 11 Mar, 2012 [facility] [place] [facility] [address] [id number] [place] [address] 9[address] 08 Mar, 2012 [facility] [place] [facility] [address] [id number] [place] [address]- 7886 08 Mar, 2012 [facility] [place] [facility] [address] [id number] [place] [address] 3466 03 Mar, 2012 [facility] [place] [facility] [address] [id number] [place] [address] 8714 Mar, [facility] [place] [facility] [address] [id number] [place] [address] 1195 19 Feb, 2012 [facility] [place] [facility] [address] [id number] [place] [address] 8238 18 Sep, 2011 [facility] [place] [facility] [address] [id number] [place] [address] 7033 17 Feb, 2011 [facility] [place] [facility] [address] [id number] [place] [address] 2504 14 Feb, 2012 [facility] [place] [facility] [address] [id number] [place] [address] 2182 14 Feb, 2012 [facility] [place] [facility] [address] [id number] [place] [address]14 12 Feb, 2012 [facility] [place] [facility] [address] [id number] [place] [address] 2541 10 Feb, 2011 [facility] [place] [facility] [address] [id number] [place] [address] 2544 31 Jan, 2012 [facility] [place] [facility] [address] [id number] [place] [address] 1598 30 Jan, 2012 [facility] [place] [facility] [address] [id number] [place] [address] 1239 22 Jan, 2012 [facility] [place] [facility] [address] [id number] [place] [address] 7818 Jan, [facility] [place] [facility] [address] [id number] [place] [address] 86[address] Jan, [facility] [place] [facility] [address] [id number] [place] [address] 0863 Jan, [facility] [place] [facility] [address] [id number] [place] [address]- 9250 Jan, [facility] [place] [facility] [address] [id number] [place] [address] 3778 Jan, [facility] [place] [facility] [address] [id number] [place] [address] 4[address] Jan, [facility] [place] [facility] [address] [id number] [place] [address] 4986 Jan, [facility] [place] [facility] [address] [id number] [place] [address] 6720 Dec, [facility] [place] [facility] [address] [id number] [place] [address] 9993 24 Dec, 2011 [facility] [place] [facility] [address] [id number] [place] [address]- 7336 Dec, [facility] [place] [facility] [address] [id number] [place] [address]- 7049 Dec, [facility] [place] [facility] [address] [id number] [place] [address]- 1130 18 Dec, 2011 [facility] [place] [facility] [address] [id number] [place] [address]- 3037 17 Dec, 2011 [facility] [place] [facility] [address] [id number] [place] [address]- 1821 16 Dec, 2011 [facility] [place] [facility] [address] [id number] [place] [address]- 8803 14 Dec, 2011 [facility] [place] [facility] [address] [id number] [place] [address]- 5900 12 Dec, 2011 [facility] [place] [facility] [address] [id number], [place] [address] Dec, [facility] [id number] [address] Dec, [facility] [id number], [place] [address] 46[address] Nov, [facility] [id number], [place] [address] 54[address] Nov, [facility] [id number] [place] [address]- 5972 Nov, [facility] [id number] [place] [address]- 1551 Nov, [facility] [id number] [place] [address]- 4158 Nov, [facility] [id number] [place] [address]- 2801 Nov, [facility] [id number], [place] [address]- 4189 Nov, [facility] [address], [place] [address] 0300 Nov, [facility] [address], [place] [address]- 8600 Nov, [facility] [address], [place] [address] Nov, [facility] [address], [place] [address] 64[address] October, IMMUNIZATIONS No Known Immunizations SOCIAL HISTORY Never Assessed REASON FOR VISIT Right Shoulder and arm pain WB-MA, PT thinks she has a torn rotator cuff PLAN OF CARE Activity Details Future/Pending Procedure JOINT INJECTION-LARGE JOINT VITAL SIGNS Height 65 in 2017-11-25 Weight 181.3 lbs 2017-11-25 Temperature 97.4 degrees Fahrenheit 2017-11-25 Heart Rate 84 bpm 2017-11-25 Respiratory Rate 18 2017-11-25 BMI 30.17 kg/m2 2017-11-25 Blood pressure systolic 124 mmHg 2017-11-25 Blood pressure diastolic 84 mmHg 2017-11-25 MEDICATIONS Medication Instructions Dosage Frequency Start Date End Date Duration Status Qvar 40 MCG/ACT Inhalation Twice a day with spacer device 2 puffs Jun Not-Taking Pravastatin Sodium 20 mg Orally Once a day 1 tablet 24h May, Active Albuterol Sulfate 108 (90 Base) mcg/act inhale 2 puffs by inhalation route every 4-6 hours as neededPRNcough or wheezing Nov, Active Dicyclomine HCl 20 mg Orally Four times a day-Must have appt for further refills 1 tablet Active Promethazine-Codeine 6.25-10 MG/5ML Orally at hs prn 5 ml as needed Not-Taking Microspacer - by inhalation route twice a day with inhaler as directed Jun, Not-Taking Omeprazole 40 mg Orally Once a day 1 capsule 24h May, Not- Taking Amitriptyline HCl 10MG Orally Once a day 1 tablet at hs 24h Active Propranolol HCl 80MG Orally Twice a day 1 tablet 12h Active Sumatriptan Succinate 25 MG 1 tablet as needed at onset of headache, may repeat once in 2 hours if needed Jul, Not-Taking Amlodipine Besylate 2.5 MG Orally Once a day 1 tablet 24h Jan, Active Zofran 8 MG Orally 3 times a day 1 tablet as needed 8h 10 days Not- Taking Diclofenac Sodium 75 MG Orally Twice a day 1 tablet with food or milk 12h Nov, Mar, 30 day(s) Active RESULTS No Results PROCEDURES Procedure Date Ordered Result Body Site DRAIN/INJECT, JOINT/BURSA November 25, 2017 INSTRUCTIONS MEDICATIONS ADMINISTERED No Known Medications [...]
--- OUTSIDE RECORDS SUMMARY | 2018-08-12 15:14 | XMS REPORT ---
Author Author NENITA WILKS Organization [facility] Address [address] [place] [address] Care Team Providers Care Beam Dyer Operator Name Role Phone NENITA WILKS Unavailable PROBLEMS Type Condition ICD9-CM Code OFD27-HR Code Onset Dates Condition Status SNOMED Code Problem Essential hypertension I10 Active 44205272 Problem Other chronic pain G89.29 Active 27052862 Problem 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 Active 99329075 Problem Other chronic pain G89.29 Active 67510150 Problem Intractable chronic migraine without aura and with status migrainosus G43.711 Active 733192675 Problem Primary insomnia F51.01 Active 2643227 Problem Seizure disorder G40.909 Active 435685862 Problem Moderate persistent asthma with exacerbation J45.41 Active 851747283 Problem Moderate persistent asthma without complication J45.40 Active 340745166 Problem Elevated liver enzymes R74.8 Active 331497101 Problem Hyperlipidemia LDL goal <100 E78.5 Active 24677377 Problem Hypokalemia E87.6 Active 77263825 Problem Tremor, hereditary, benign G25.0 Active 130623315 Problem Abnormal glucose R73.09 Active 009373253 Problem Irritable bowel K58.9 Active 92966333 Problem Major depressive disorder, recurrent episode, moderate F33.1 Active 672680561 Problem Chronic migraine without aura with status migrainosus, not intractable G43.701 Active 948226051 ALLERGIES No Information ENCOUNTERS Encounter Location Date Diagnosis [facility] [address] [facility] [id number] [address] Dec, [facility] [address] [id number] [address] Dec, Other chronic pain G89.29 ; Pain in right shoulder M25.511 and Liver enzyme elevation R74.8 [facility] [id number] [place] [address] 88045- 4936 Nov, Other chronic pain G89.29 and Pain in right shoulder M25.511 [facility] [id number] [place] [address] 87820- 6160 October, [facility] [id number] [place] [address] 30418 -9450 October, Right shoulder pain, unspecified chronicity M25.511 [facility] [id number] [place] [address] 73260- 9552 Aug, Elevated liver enzymes R74.8 and Hyperlipidemia LDL goal < 100 E78.5 [place] [address] 16041- 5439 Aug, [place] [address] 16322- 5122 Jul, [facility] [address] 25382- 5546 Jul, Intractable chronic migraine without aura and with status migrainosus G43.711 ; Fever, unspecified fever cause R50.9 and Elevated liver enzymes R74.8 [place] [id number] [place] [address] 98633- 6921 Jun, Difficulty urinating R39.198 and Moderate persistent asthma with exacerbation J45.41 [place] [id number] [place] [address] 44702- 4760 Jun, [place] [id number] [place] [address] 57362- 8559 Jun, Moderate persistent asthma with exacerbation J45.41 [place] [id number] [place] [address] 54836- 8840 May, Elevated liver enzymes R74.8 and Hyperlipidemia LDL goal < 100 E78.5 [place] [id number] [place] [address] 02387- 7232 May, Elevated lipids E78.5 [place] [id number] [place] [address] 89716- 7223 Apr, Elevated liver enzymes R74.8 [place] [id number] [place] [address] 10649- 6165 Apr, Elevated liver enzymes R74.8 [place] [id number] [place] [address] 50289- 4961 Apr, Superior glenoid labrum lesion of right shoulder, subsequent encounter S43.431D [place] [id number] [place] [address] 49505- 5770 Apr, Hypokalemia E87.6 ; Major depressive disorder, recurrent episode, moderate F33.1 ; Other abnormalities of breathing R06.89 and Dyspnea, unspecified R06.00 [facility]ALK IN [facility] [address] 28872 -6194 Mar, Moderate persistent asthma without complication J45.40 [place] [address] 20404- 8495 Mar, Impingement syndrome of right shoulder M75.41 [place] [id number] [place] [address] 18118- 7379 Jan, [place] [id number] [place] [address] 66993- 6672 Jan, Chronic migraine without aura with status migrainosus, not intractable G43.701 ; Essential hypertension I10 ; Irritable bowel K58.9 ; Primary insomnia F51.01 and Hypokalemia E87.6 [place] [id number] [place] [address] 36548- 4139 Dec, [place] [address] 46977- 2186 Dec, Pain in right shoulder M25.511 [place] [address] 73067- 2214 Dec, Essential hypertension I10 [facility] [address] [address] 2543 Dec, [facility] [id number] [place] [address] 89209 2546 30 Nov, 2016 Essential hypertension I10 [facility] [address] [address] 2546 14 Nov, 2016 Pain in right shoulder M25.511 [facility] [id number] [place] [address] 28328- 4446 13 Nov, 2016 Pain in right shoulder M25.511 [facility] [id number] [place] [address] 15729- 2686 October, [facility] [id number] [place] [address] 39919- 3156 October, Pain in right shoulder M25.511 [facility] [id number] [place] [address] 58197- 0831 Sep, Arm pain, right M79.601 [facility] [address] [place] [address] 31164- 9190 Sep, [facility] [id number] [place] [address] 05016- 7135 Sep, Abnormal glucose R73.09 and Elevated lipids E78.5 [facility] [address] [place] [address] 65919- 5576 Sep, Abnormal glucose R73.09 and Elevated lipids E78.5 [facility] [address] [address] 2546 Aug, [facility] [address] [address] 2546 Aug, [facility] [address] [address]- 7896 Aug, [facility] [id number] [place] [address] 08340- 4750 Aug, 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 ; Hypokalemia E87.6 ; Irritable bowel K58.9 ; Essential hypertension I10 ; Pain in right shoulder M25.511 ; Screening for lipid disorders Z13.220 and Seizure disorder G40.909 [place] [id number] [place] [address] 46138- 0482 28 Jul, 2016 Other chronic pain G89.29 and Pain in right shoulder M25.511 [place] [address] 01583- 5992 14 Jul, 2016 Biceps muscle strain, right, subsequent encounter S46.111D [facility] WALK IN [address] 38425 -1218 08 Jul, 2016 Arm pain, right M79.[address] 91415- 4463 Jun, [place] [address] 75096- 3475 Jun, Acute non-recurrent frontal sinusitis J01.[address] 29266- 1865 May, Generalized abdominal pain R10.84 ; Urinary tract infection without hematuria, site unspecified N39.0 ; Hypokalemia E87.6 ; Essential hypertension I10 ; Screening for lipid disorders Z13.220 ; Seizure R56.9 and Low back pain M54.5 [place] [id number] [place] [address] 60036- 1443 Apr, [facility] WALK IN [place] [id number] [place] [address] 68991 -2455 Feb, [address] 46669- 4097 Jan, [place] [address] 57083- 6652 Dec, 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 ; Hypokalemia E87.6 ; Irritable bowel K58.9 and Nausea R11.0 [facility] [id number] [place] [address] 12647 -4033 Dec, Generalized abdominal pain R10.84 [place] [id number] [place] [address] 26688- 3592 Nov, [facility]ALK IN [facility] [address] 01821 -4607 Aug, Acute bronchitis J20.9 [place] [address] 08644- 2113 Aug, [place] [id number] [place] [address] 60815- 5066 Aug, Low back pain M54.5 ; Hypokalemia E87.6 ; Chronic migraine without aura with status migrainosus, not intractable G43.701 ; Tremor, hereditary, benign G25.0 ; Irritable bowel K58.9 ; Essential hypertension I10 and Seizure R56.9 [place] [address] 99938- 3713 Aug, [place] [id number] [place] [address] 05694- 9747 Jul, [place] [id number] [place] [address] 35022- 9577 Jul, Low back pain M54.5 ; Hypokalemia E87.6 ; Chronic migraine without aura with status migrainosus, not intractable G43.701 ; Tremor, hereditary, benign G25.0 ; Irritable bowel K58.9 ; Essential hypertension I10 and Seizure R56.9 [place] [id number] [place] [address] 12626- 7048 Jun, Hypokalemia E87.6 [place] [address] 80952- 1359 15 Jun, 2015 ADD (attention deficit disorder) without hyperactivity F90.0 ; Generalized anxiety disorder F41.1 and Major depressive disorder, recurrent episode, moderate F33.1 [place] [address] [place] [address] 99353- 8929 13 Jun, 2015 Low back pain M54.5 ; Hypokalemia E87.6 ; Chronic migraine without aura with status migrainosus, not intractable G43.701 ; Tremor, hereditary, benign G25.0 ; Irritable bowel K58.9 ; Essential hypertension I10 and Seizure R56.9 [place] [id number] [place] [address] 91385- 9524 Jun, [place] [id number] [place] [address] 32958- 1026 May, [place] [id number] [place] [address] 38061- 5187 May, Low back pain M54.5 ; Hypokalemia E87.6 ; Chronic migraine without aura with status migrainosus, not intractable G43.701 ; Tremor, hereditary, benign G25.0 ; Irritable bowel K58.9 ; Essential hypertension I10 ; Seizure R56.9 and Tinea capitis B35.0 [place] [address] [place] [address] 35268- 3405 May, Low back pain M54.5 ; Hypokalemia E87.6 ; Chronic migraine without aura with status migrainosus, not intractable G43.701 ; Tremor, hereditary, benign G25.0 ; Irritable bowel K58.9 ; Essential hypertension I10 ; Seizure R56.9 ; Dysuria 788.1 and Otitis media, left H66.92 [place] [address] [place] [address] 30525- 1894 14 May, 2015 Tooth pain K08.8 [place] [id number] [place] [address] 25602- 6460 May, [place] [id number] [place] [address] 64314- 0935 May, Low back pain M54.5 ; Hypokalemia E87.6 ; Chronic migraine without aura with status migrainosus, not intractable G43.701 ; Tremor, hereditary, benign G25.0 ; Irritable bowel K58.9 and Essential hypertension I10 [place] [address] 52878- 9511 Apr, Low back pain M54.5 ; Hypokalemia E87.6 ; Chronic migraine without aura with status migrainosus, not intractable G43.701 ; Tremor, hereditary, benign G25.0 and Irritable bowel K58.9 [place] [address] 15273- 7734 Apr, Low back pain M54.5 [place] [address] 66607- 9133 Mar, [place] [address] 98307- 8684 Mar, Irritable bowel syndrome with diarrhea K58.0 [place] [address] 70383- 2842 Mar, [place] [id number] [place] [address] 11594- 1765 Feb, [place] [address] 67712- 4695 08 Feb, 2015 [place] [address] 93962- 7030 03 Feb, 2015 Irritable bowel syndrome 564.1 ; Lumbago 724.2 and Cervical pain (neck) 723.1 [place] [address] 35158- 8534 10 Dec, 2014 Major depressive disorder, recurrent episode, moderate 296.32 and Generalized anxiety disorder 300.02 [place] [address] 85071- 1659 Nov, [facility] [address] [place] [address] 84772- 1282 Nov, Major depressive disorder, recurrent episode, moderate 296.32 [facility] [id number] [place] [address] 01224- 8799 08 Nov, 2014 Constipation 564.00 ; Nausea & vomiting 787.01 and Abdominal pain 789.00 [facility] [id number] [place] [address] 15166- 5500 Nov, [facility] [id number] [place] [address] 91547- 6962 October, [facility] [id number] [place] [address] 35915- 1179 October, [facility] [id number] [place] [address] 05400- 5899 October, [facility] [id number] [place] [address] 67754- 7789 October, [facility] [id number] [place] [address] 62251- 3042 Sep, Dysuria 788.1 [facility] [address] [place] [address] 18414- 8386 Sep, [facility] [address] [address]- 1144 Sep, [facility] [address] [address]- 4486 Sep, [facility] [id number] [place] [address] 804139- 2864 Sep, [facility] [id number] 1830 Aug, [facility] [address] [place] [address] 381028- 3787 Aug, [facility] [place] [facility] [address] [id number] [place] [address]- 0517 Aug, [facility] [place] [facility] [address] [id number] [place] [address]- 0855 Aug, [facility] [place] [facility] [address] [id number] [place] [address]- 6394 Aug, [facility] [place] [facility] [address] [id number] [place] [address]- 4887 Aug, [facility] [place] [facility] [address] [id number] [place] [address]- 2981 Aug, [facility] [place] [facility] [address] [id number] [place] [address]- 7519 Aug, [facility] [place] [facility] [address] [id number] [place] [address]- 9407 Aug, [facility] [place] [facility] [address] [id number] [place] [address]- 0553 Aug, [facility] [place] [facility] [address] [id number] [place] [address]- 4695 Jun, [facility] [place] [facility] [address] [id number] [place] [address]- 5604 Jun, [facility] [place] [facility] [address] [id number] [place] [address]- 1829 Jun, [facility] [place] [facility] [address] [id number] [place] [address]- 2429 Jun, [facility] [place] [facility] [address] [id number] [place] [address]- 7467 May, [facility] [place] [facility] [address] [id number] [place] [address]- 3457 May, [facility] [place] [facility] [address] [id number] [place] [address]- 4484 May, [facility] [place] [facility] [address] [id number] [place] [address]- 1053 May, [facility] [place] [facility] [address] [id number] [place] 8443 May, [facility] [place] [facility] [address] [id number] [place] [address]- 7520 May, [facility] [place] [facility] [address] [id number] [place] 3353 May, [facility] [place] [facility] [address] [id number] [place] 6394 May, [facility] [place] [facility] [address] [id number] [place] [address]- 4334 Mar, [facility] [place] [facility] [address] [id number] [place] [address]- 9414 Mar, [facility] [place] [facility] [address] [id number] [place] [address]- 2753 Mar, [facility] [place] [facility] [address] [id number] [place] [address]- 3108 Mar, [facility] [place] [facility] [address] [id number] [place] [address]- 1116 Mar, [facility] [place] [facility] [address] [id number] [place] [address]- 7186 Mar, [facility] [place] [facility] [address] [id number] [address]- 3626 Mar, [facility] [place] [facility] [address] [id number] [address]- 5421 Mar, [facility] [place] [facility] [address] [id number] [place] [address]- 7865 Mar, [facility] [place] [facility] [address] [id number] [place] [address]- 4820 Mar, [facility] [place] [facility] [address] [id number] [place] 9652 Mar, [facility] [place] [facility] [address] [id number] [place] [address]- 7381 Mar, [facility] [place] [facility] [address] [id number] [place] [address]- 9904 Feb, [facility] [place] [facility] [address] [id number] [place] [address]- 1865 Feb, [facility] [place] [facility] [address] [id number] [place] [address]- 1560 Feb, [facility] [place] [facility] [address] [id number] [place] [address]- 2528 Feb, [facility] [place] [facility] [address] [id number] [place] [address]- 2488 Feb, [facility] [place] [facility] [address] [id number] [place] [address]- 1043 Feb, [facility] [place] [facility] [address] [id number] [place] [address]- 5445 Jan, [facility] [place] [facility] [address] [id number] [place] [address]- 4394 Jan, [facility] [place] [facility] [address] [id number] [place] [address]- 2895 Jan, [facility] [place] [facility] [address] [id number] [place] [address]- 4054 Jan, [facility] [place] [facility] [address] [id number] [place] [address]- 7812 Jan, [facility] [place] [facility] [address] [id number] [place] [address]- 7703 Jan, [facility] [place] [facility] [address] [id number] [place] [address]- 6874 Jan, [facility] [place] [facility] [address] [id number] [place] [address]- 0143 Jan, [facility] [place] [facility] [address] [id number] [place] [address]- 0391 Dec, [facility] [place] [facility] [address] [id number] [place] [address]- 5695 Dec, [facility] [place] [facility] [address] [id number] [place] [address]- 1775 Dec, [facility] [place] [facility] [address] [id number] [place] [address]- 5523 Dec, [facility] [place] [facility] [address] [id number] [place] [address]- 1697 Dec, [facility] [place] [facility] [address] [id number] [place] [address]- 5033 Dec, [facility] [place] [facility] [address] [id number] [place] [address]- 0959 Dec, [facility] [place] [facility] [address] [id number] [place] [address]- 0737 Dec, [facility] [place] [facility] [address] [id number] [place] [address]- 3593 October, [facility] [place] [facility] [address] [id number] [place] [address]- 5893 October, [facility] [place] [facility] [address] [id number] [place] [address]- 4944 Sep, [facility] [place] [facility] [address] [id number] [place] [address]- 3916 Sep, [facility] [place] [facility] [address] [id number] [place] [address]- 2255 Sep, [facility] [place] [facility] [address] [id number] [place] [address]- 4110 Sep, [facility] [place] [facility] [address] [id number] [place] [address]- 8900 Sep, [facility] [place] [facility] [address] [id number] [place] [address]- 4871 Sep, [facility] [place] [facility] [address] [id number] [place] [address]- 2605 Sep, [facility] [place] [facility] [address] [id number] [place] [address]- 0491 Sep, [facility] [place] [facility] [address] [id number] [place] [address]- 2898 Sep, [facility] [place] [facility] [address] [id number] [place] [address] Sep, [facility] [place] [facility] [address] [id number] [place] [address] Sep, [facility] [place] [facility] [address] [id number] [place] [address] Sep, [facility] [place] [facility] [address] [id number] [place] [address] Aug, [facility] [place] [facility] [address] [id number] [place] [address] Aug, [facility] [place] [facility] [address] [id number] [place] [address] Aug, [facility] [place] [facility] [address] [id number] [place] [address] Jun, [facility] [place] [facility] [address] [id number] [place] [address] Jun, [facility] [place] [facility] [address] [id number] [place] [address] Jun, [facility] [place] [facility] [address] [id number] [place] [address] Jun, [facility] [place] [facility] [address] [id number] [place] [address] Jun, [facility] [place] [facility] [address] [id number] [place] [address] Jun, [facility] [place] [facility] [address] [id number] [place] [address] Jun, [facility] [place] [facility] [address] [id number] [place] [address] Jun, [facility] [place] [facility] [address] [id number] [place] [address] Jun, [facility] [place] [facility] [address] [id number] [place] [address] Jun, [facility] [place] [facility] [address] [id number] [place] [address] May, [facility] [place] [facility] [address] [id number] [place] [address] May, [facility] [place] [facility] [address] [id number] [place] [address]- [address] May, [facility] [place] [facility] [address] [id number] [place] [address] May, [facility] [place] [facility] [address] [id number] [place] [address] Apr, [facility] [place] [facility] [address] [id number] [place] [address] Apr, [facility] [place] [facility] [address] [id number] [place] [address] Apr, [facility] [place] [facility] [address] [id number] [place] [address] Apr, [facility] [place] [facility] [address] [id number] [place] [address] Apr, [facility] [place] [facility] [address] [id number] [place] [address] Apr, [facility] [place] [facility] [address] [id number] [place] [address] Apr, [facility] [place] [facility] [address] [id number] [place] [address] Apr, [facility] [place] [facility] [address] [id number] [place] [address] Mar, [facility] [place] [facility] [address] [id number] [place] [address] Mar, [facility] [place] [facility] [address] [id number] [place] [address] Mar, [facility] [place] [facility] [address] [id number] [place] [address] Mar, [facility] [place] [facility] [address] [id number] [place] [address] Mar, [facility] [place] [facility] [address] [id number] [place] [address] Feb, [facility] [place] [facility] [address] [address] [id number] [place] [address] Feb, [facility] [place] [facility] [address] [id number] [place] [address] Feb, [facility] [place] [facility] [address] [id number] [place] [address] Feb, [facility] [place] [facility] [address] [id number] [place] [address] Feb, [facility] [place] [facility] [address] [id number] [place] [address] Jan, [facility] [place] [facility] [address] [id number] [address] Jan, [facility] [place] [facility] [address] [id number] [address] Nov, [facility] [place] [facility] [address] [id number] [place] [address] Nov, [facility] [place] [facility] [address] [id number] [address] Nov, [facility] [place] [facility] [address] [id number] [address] Nov, [facility] [place] [facility] [address] [id number] [place] [address] October, [facility] [address] [id number] [place] [address] Sep, [facility] [place] [facility] [address] [id number] [place] [address] Aug, [facility] [place] [facility] [address] [id number] [place] [address] Aug, [facility] [place] [facility] [address] [id number] [place] [address] Aug, [facility] [place] [facility] [address] [id number] [place] [address] Aug, [facility] [place] [facility] [address] [id number] [place] [address] Jul, [facility] [address] [id number] [place] [address] Jun, [facility] [address] [id number] [place] [address]195 Jun, [facility] [place] [facility] [address] [facility] [id number] [place] [address] May, [facility] [address] [facility] [id number] [place] [address] 89[address] May, [facility] [place] [facility] [address] [facility] [id number] [id number] Mar, [facility] [place] [facility] [address] [id number] [place] [address] Mar, [facility] [place] [facility] [address] [id number] [place] [address] Mar, [facility] [place] [facility] [address] [facility] [id number] [place] [address] 8699 Mar, [facility] [place] [facility] [address] [facility] [id number] [place] [address] Mar, [facility] [place] [facility] [address] [id number] [place] [address] 138[address] 23 Mar, 2011 [facility] [place] [facility] [address] [id number] [place] [address]689 23 Mar, 2011 [facility] [place] [facility] [address] [id number] [place] [address] 23 Mar, 2012 [facility] [place] [facility] [address] [id number] [place] [address] 4662 22 Mar, 2012 [facility] [place] [facility] [address] [id number] [place] [address] Mar, [facility] [place] [facility] [address] [id number] [place] [address] 20 Mar, 2012 [facility] [place] [facility] [address] [id number] [place] [address] 17 Mar, 2012 [facility] [place] [facility] [address] [id number] [place] [address] 17 Mar, 2012 [facility] [place] [facility] [address] [id number] [place] [address] 4110 15 Mar, 2012 [facility] [place] [facility] [address] [id number] [place] [address] 7642 15 Mar, 2012 [facility] [place] [facility] [address] [id number] [place] [address] 7288 15 Mar, 2012 [facility] [place] [facility] [address] [id number] [place] [address]676 15 Mar, 2012 [facility] [place] [facility] [address] [id number] [place] [address] 8654 11 Mar, 2012 [facility] [place] [facility] [address] [id number] [place] [address] 3167 11 Mar, 2012 [facility] [place] [facility] [address] [id number] [place] [address]479 08 Mar, 2012 [facility] [place] [facility] [address] [id number] [place] [address] 5842 08 Mar, 2012 [facility] [place] [facility] [address] [id number] [place] [address]67 03 Mar, 2012 [facility] [place] [facility] [address] [id number] [place] [address] Mar, [facility] [place] [facility] [address] [id number] [place] [address]126 19 Feb, 2012 [facility] [place] [facility] [address] [id number] [place] [address] 6[address] 18 Feb, 2012 [facility] [place] [facility] [address] [id number] [place] [address]326 17 Feb, 2012 [facility] [place] [facility] [address] [id number] [place] [address] 4[address] 14 Feb, 2012 [facility] [place] [facility] [address] [id number] [place] [address] 5996 14 Feb, 2012 [facility] [place] [facility] [address] [id number] [place] [address] 1311 12 Feb, 2012 [facility] [place] [facility] [address] [id number] [place] [address] 6138 10 Feb, 2012 [facility] [place] [facility] [address] [id number] [place] [address] 3275 31 Jan, 2012 [facility] [place] [facility] [address] [id number] [place] [address]77 30 Jan, 2012 [facility] [place] [facility] [address] [id number] [place] [address] Jan, [facility] [place] [facility] [address] [id number] [place] [address]- 59[address] Jan, [facility] [place] [facility] [address] [id number] [place] [address] 9[address] Jan, [facility] [place] [facility] [address] [id number] [place] [address] 1220 17 Jan, 2012 [facility] [place] [facility] [address] [id number] [place] [address]- 1484 17 Jan, 2012 [facility] [address] [id number] [place] [address] 4224 16 Jan, 2012 [facility] [place] [facility] [address] [id number] [place] [address]- 4646 13 Jan, 2012 [facility] [address] [id number] [place] [address]- 7437 07 Jan, 2012 [facility] [place] [facility] [address] [id number] [place] [address] 7245 26 Dec, 2011 [facility] [address] [id number] [place] [address] 6008 24 Dec, 2011 [facility] [address] [id number] [place] [address]- 4815 23 Dec, 2011 [facility] [address] [id number] [place] [address]- 8880 Dec, [facility] [address] [id number] [place] [address]- 6650 18 Dec, 2011 [facility] [place] [facility] [address] [id number] [place] [address]- 4246 17 Dec, 2011 [facility] [address] [id number] [place] [address]- 3573 16 Dec, 2011 [facility] [place] [facility] [address] [id number] [place] [address]- 7203 14 Dec, 2011 [facility] [place] [facility] [address] [id number] [place] [address]- 8633 Dec, [facility] [place] [facility] [address] [id number] [place] [address]- 1001 Dec, [facility] [place] [facility] [address] [id number] [place] [address]- 6548 06 Dec, 2011 [facility] [place] [facility] [address] [id number] [place] [address]- 9627 Nov, [facility] [address] [id number] [address] 27 Nov, 2011 [facility] [id number] [address] Nov, [facility] [id number] [address] Nov, [facility] [id number] [address] 62[address] Nov, [facility] [id number] [address] Nov, [facility] [id number] [place] [address]81 Nov, [facility] [id number] [place] [address]- 5987 Nov, [facility] [id number] [place] [address] 9536 Nov, [facility] [id number] [address] Nov, [facility] [id number] [address] October, IMMUNIZATIONS No Known Immunizations SOCIAL HISTORY Never Assessed REASON FOR VISIT arm swelling Pt c/o R arm swelling for about 3 days has recently been on steroids (Seen Dr Dejesus last month, [facility]) for same and no relief [place] PLAN OF CARE Activity Details Follow Up prn Reason: VITAL SIGNS Height 65 in 2017-10-11 Weight 192.4 lbs 2017-10-11 Temperature 97.6 degrees Fahrenheit 2017-10-11 Heart Rate 90 bpm 2017-10-11 Respiratory Rate 18 2017-10-11 BMI 32.01 kg/m2 2017-10-11 Blood pressure systolic 128 mmHg 2017-10-11 Blood pressure diastolic 80 mmHg 2017-10-11 MEDICATIONS Unknown Medications RESULTS No Results PROCEDURES [...] hysterectomy-total 2005 Surgical History lower [facility] [place] -not sure results Surgical History EGD Hospitalization [...]
--- OUTSIDE RECORDS SUMMARY | 2018-08-12 15:14 | XMS REPORT ---
Author Author DIONY XIONG Organization [facility] Address [address] [place] [address] Care Team Providers Care Director Digital Communications Name Role Phone DIONY XIONG Unavailable PROBLEMS Type Condition ICD9-CM Code JZX60-ZS Code Onset Dates Condition Status SNOMED Code Problem Essential hypertension I10 Active 72103310 Problem Other chronic pain G89.29 Active 55958246 Problem 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 Active 55134695 Problem Other chronic pain G89.29 Active 60290174 Problem Intractable chronic migraine without aura and with status migrainosus G43.711 Active 037334839 Problem Primary insomnia F51.01 Active 5242575 Problem Seizure disorder G40.909 Active 182635348 Problem Moderate persistent asthma with exacerbation J45.41 Active 857400708 Problem Moderate persistent asthma without complication J45.40 Active 010395205 Problem Elevated liver enzymes R74.8 Active 370753489 Problem Hyperlipidemia LDL goal <100 E78.5 Active 41854250 Problem Hypokalemia E87.6 Active 71225301 Problem Tremor, hereditary, benign G25.0 Active 308917466 Problem Abnormal glucose R73.09 Active 845693168 Problem Irritable bowel K58.9 Active 41866837 Problem Major depressive disorder, recurrent episode, moderate F33.1 Active 361907609 Problem Chronic migraine without aura with status migrainosus, not intractable G43.701 Active 073478863 ALLERGIES No Information ENCOUNTERS Encounter Location Date Diagnosis [facility] [address] [facility] [id number] [address] Dec, [facility] [address] [id number] [address] Dec, Other chronic pain G89.29 ; Pain in right shoulder M25.511 and Liver enzyme elevation R74.8 [facility] [id number] [place] [address] 62287- 4606 Nov, Other chronic pain G89.29 and Pain in right shoulder M25.511 [facility] [id number] [place] [address] 92628- 0216 October, [facility] [id number] [place] [address] 54384 -9546 October, Right shoulder pain, unspecified chronicity M25.511 [facility] [id number] [place] [address] 63768- 5057 Aug, Elevated liver enzymes R74.8 and Hyperlipidemia LDL goal < 100 E78.5 [place] [address] [address]31- 0639 Aug, [place] [address] 34180- 7493 Jul, [facility] [address] [address]- 9431 Jul, Intractable chronic migraine without aura and with status migrainosus G43.711 ; Fever, unspecified fever cause R50.9 and Elevated liver enzymes R74.8 [place] [id number] [place] [address] 20056- 7042 Jun, Difficulty urinating R39.198 and Moderate persistent asthma with exacerbation J45.41 [place] [id number] [place] [address] 39925- 8675 Jun, [place] [id number] [place] [address] 98238- 3833 Jun, Moderate persistent asthma with exacerbation J45.41 [place] [id number] [place] [address] 63535- 1687 May, Elevated liver enzymes R74.8 and Hyperlipidemia LDL goal < 100 E78.5 [place] [id number] [place] [address] 88784- 1587 May, Elevated lipids E78.5 [place] [id number] [place] [address] 62643- 0447 Apr, Elevated liver enzymes R74.8 [place] [id number] [place] [address] 46020- 3688 Apr, Elevated liver enzymes R74.8 [place] [id number] [place] [address] 73669- 1422 Apr, Superior glenoid labrum lesion of right shoulder, subsequent encounter S43.431D [place] [id number] [place] [address] 92799- 3321 Apr, Hypokalemia E87.6 ; Major depressive disorder, recurrent episode, moderate F33.1 ; Other abnormalities of breathing R06.89 and Dyspnea, unspecified R06.00 [facility] [address] 47916 -5499 Mar, Moderate persistent asthma without complication J45.40 [place] [address] 49778- 5168 Mar, Impingement syndrome of right shoulder M75.41 [place] [id number] [place] [address] 47627- 5719 Jan, [place] [id number] [place] [address] 36131- 2875 Jan, Chronic migraine without aura with status migrainosus, not intractable G43.701 ; Essential hypertension I10 ; Irritable bowel K58.9 ; Primary insomnia F51.01 and Hypokalemia E87.6 [place] [id number] [place] [address] 35732- 0809 Dec, [place] [address] 86630- 1133 Dec, Pain in right shoulder M25.511 [place] [address] 98055- 9040 Dec, Essential hypertension I10 [facility] [address] [address] 2541 Dec, [facility] [id number] [place] [address] 58266 2546 30 Nov, 2016 Essential hypertension I10 [facility] [address] [address] 2546 14 Nov, 2016 Pain in right shoulder M25.511 [facility] [id number] [place] [address] 79188- 6356 13 Nov, 2016 Pain in right shoulder M25.511 [facility] [id number] [place] [address] 14740- 8016 October, [facility] [id number] [place] [address] 64685- 2906 October, Pain in right shoulder M25.511 [facility] [id number] [place] [address] 15008- 7158 Sep, Arm pain, right M79.601 [facility] [id number] [place] [address] 48624- 9492 Sep, [facility] [id number] [place] [address] 06961- 4918 Sep, Abnormal glucose R73.09 and Elevated lipids E78.5 [facility] [address] [place] [address] 24331- 9696 Sep, Abnormal glucose R73.09 and Elevated lipids E78.5 [facility] [address] [address] 2546 Aug, [facility] [address] [address] 2546 Aug, [facility] [address] [address]- 2826 Aug, [facility] [id number] [place] [address] 87918- 1230 Aug, 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 ; Hypokalemia E87.6 ; Irritable bowel K58.9 ; Essential hypertension I10 ; Pain in right shoulder M25.511 ; Seizure disorder G40.909 and Screening for lipid disorders Z13.220 [place] [id number] [place] [address] 63089- 6193 28 Jul, 2016 Other chronic pain G89.29 and Pain in right shoulder M25.511 [place] [address] 90043- 8642 14 Jul, 2016 Biceps muscle strain, right, subsequent encounter S46.111D [facility] IN [address] 28499 -3324 08 Jul, 2016 Arm pain, right M79.[address] 86471- 4971 Jun, [place] [address] 00323- 1499 Jun, Acute non-recurrent frontal sinusitis J01.[address] 10107- 6835 May, Generalized abdominal pain R10.84 ; Urinary tract infection without hematuria, site unspecified N39.0 ; Hypokalemia E87.6 ; Essential hypertension I10 ; Screening for lipid disorders Z13.220 ; Seizure R56.9 and Low back pain M54.5 [place] [id number] [place] [address] 08861- 0519 Apr, [facility] [place] [id number] [place] [address] 46992 -4344 Feb, [address] 27154- 7699 Jan, [place] [address] 42433- 2432 Dec, 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 ; Hypokalemia E87.6 ; Irritable bowel K58.9 and Nausea R11.0 [facility] [id number] [place] [address] 30080 -4015 Dec, Generalized abdominal pain R10.84 [place] [id number] [place] [address] 21455- 6405 Nov, [facility] [address] 65325 -6581 Aug, Acute bronchitis J20.9 [place] [address] 30943- 5260 Aug, [place] [id number] [place] [address] 00099- 4486 Aug, Low back pain M54.5 ; Hypokalemia E87.6 ; Chronic migraine without aura with status migrainosus, not intractable G43.701 ; Tremor, hereditary, benign G25.0 ; Irritable bowel K58.9 ; Essential hypertension I10 and Seizure R56.9 [place] [address] 49948- 5927 Aug, [place] [id number] [place] [address] 36946- 8839 Jul, [place] [id number] [place] [address] 69321- 0194 Jul, Low back pain M54.5 ; Hypokalemia E87.6 ; Chronic migraine without aura with status migrainosus, not intractable G43.701 ; Tremor, hereditary, benign G25.0 ; Irritable bowel K58.9 ; Essential hypertension I10 and Seizure R56.9 [place] [id number] [place] [address] 47410- 0942 Jun, Hypokalemia E87.6 [place] [address] 07504- 4265 15 Jun, 2015 ADD (attention deficit disorder) without hyperactivity F90.0 ; Generalized anxiety disorder F41.1 and Major depressive disorder, recurrent episode, moderate F33.1 [place] [address] [place] [address] 10797- 9457 13 Jun, 2015 Low back pain M54.5 ; Hypokalemia E87.6 ; Chronic migraine without aura with status migrainosus, not intractable G43.701 ; Tremor, hereditary, benign G25.0 ; Irritable bowel K58.9 ; Essential hypertension I10 and Seizure R56.9 [place] [id number] [place] [address] 38225- 1232 Jun, [place] [id number] [place] [address] 72403- 2140 May, [place] [id number] [place] [address] 39740- 1629 May, Low back pain M54.5 ; Hypokalemia E87.6 ; Chronic migraine without aura with status migrainosus, not intractable G43.701 ; Tremor, hereditary, benign G25.0 ; Irritable bowel K58.9 ; Essential hypertension I10 ; Seizure R56.9 and Tinea capitis B35.0 [place] [address] [place] [address] 63905- 5165 May, Low back pain M54.5 ; Hypokalemia E87.6 ; Chronic migraine without aura with status migrainosus, not intractable G43.701 ; Tremor, hereditary, benign G25.0 ; Irritable bowel K58.9 ; Essential hypertension I10 ; Seizure R56.9 ; Otitis media, left H66.92 and Dysuria 788.1 [place] [address] [place] [address] 92222- 6355 14 May, 2015 Tooth pain K08.8 [place] [address] [place] [address] 03520- 5083 May, [place] [id number] [place] [address] 39031- 3046 May, Low back pain M54.5 ; Hypokalemia E87.6 ; Chronic migraine without aura with status migrainosus, not intractable G43.701 ; Tremor, hereditary, benign G25.0 ; Irritable bowel K58.9 and Essential hypertension I10 [place] [address] 85722- 6494 Apr, Low back pain M54.5 ; Hypokalemia E87.6 ; Chronic migraine without aura with status migrainosus, not intractable G43.701 ; Tremor, hereditary, benign G25.0 and Irritable bowel K58.9 [place] [address] 03453- 3485 Apr, Low back pain M54.5 [place] [address] 44339- 1295 Mar, [place] [address] 22966- 9989 Mar, Irritable bowel syndrome with diarrhea K58.0 [place] [address] 13682- 7946 Mar, [place] [id number] [place] [address] 67110- 0720 Feb, [place] [address] 05578- 7347 08 Feb, 2015 [place] [address] 56127- 0083 03 Feb, 2015 Irritable bowel syndrome 564.1 ; Lumbago 724.2 and Cervical pain (neck) 723.1 [place] [address] 04635- 9084 10 Dec, 2014 Major depressive disorder, recurrent episode, moderate 296.32 and Generalized anxiety disorder 300.02 [place] [address] 36586- 3339 Nov, [facility] [address] [place] [address] 47296- 6596 Nov, Major depressive disorder, recurrent episode, moderate 296.32 [facility] [id number] [place] [address] 44370- 7253 08 Nov, 2014 Constipation 564.00 ; Nausea & vomiting 787.01 and Abdominal pain 789.00 [facility] [id number] [place] [address] 61658- 7095 Nov, [facility] [id number] [place] [address] 52517- 7208 October, [facility] [id number] [place] [address] 80356- 5963 October, [facility] [id number] [place] [address] 96289- 1339 October, [facility] [id number] [place] [address] 78007- 5607 October, [facility] [id number] [place] [address] 56728- 0750 Sep, Dysuria 788.1 [facility] [address] [place] [address] 94594- 2120 Sep, [facility] [address] [address]- 3707 Sep, [facility] [address] [address]- 9223 Sep, [facility] [id number] [place] [address] 146739- 5472 Sep, [facility] [id number] 4599 Aug, [facility] [address] [place] [address] 970226- 2422 Aug, [facility] [place] [facility] [address] [id number] [place] [address]- 3545 Aug, [facility] [place] [facility] [address] [id number] [place] [address]- 5099 Aug, [facility] [place] [facility] [address] [id number] [place] [address]- 3680 Aug, [facility] [place] [facility] [address] [id number] [place] [address]- 6862 Aug, [facility] [place] [facility] [address] [id number] [place] [address]- 3845 Aug, [facility] [place] [facility] [address] [id number] [place] [address]- 5446 Aug, [facility] [place] [facility] [address] [id number] [place] [address]- 8908 Aug, [facility] [place] [facility] [address] [id number] [place] [address]- 5896 Aug, [facility] [place] [facility] [address] [id number] [place] [address]- 4226 Jun, [facility] [place] [facility] [address] [id number] [place] [address]- 2580 Jun, [facility] [place] [facility] [address] [id number] [place] [address]- 8165 Jun, [facility] [place] [facility] [address] [id number] [place] [address]- 7930 Jun, [facility] [place] [facility] [address] [id number] [place] [address]- 5759 May, [facility] [place] [facility] [address] [id number] [place] [address]- 3570 May, [facility] [place] [facility] [address] [id number] [place] [address]- 8708 May, [facility] [place] [facility] [address] [id number] [place] [address]- 3601 May, [facility] [place] [facility] [address] [id number] [place] 2698 May, [facility] [place] [facility] [address] [id number] [place] [address]- 3436 May, [facility] [place] [facility] [address] [id number] [place] 0770 May, [facility] [place] [facility] [address] [id number] [place] 5165 May, [facility] [place] [facility] [address] [id number] [place] [address]- 0024 Mar, [facility] [place] [facility] [address] [id number] [place] [address]- 2042 Mar, [facility] [place] [facility] [address] [id number] [place] [address]- 4943 Mar, [facility] [place] [facility] [address] [id number] [place] [address]- 1718 Mar, [facility] [place] [facility] [address] [id number] [place] [address]- 7310 Mar, [facility] [place] [facility] [address] [id number] [place] [address]- 9796 Mar, [facility] [place] [facility] [address] [id number] [address]- 7550 Mar, [facility] [place] [facility] [address] [id number] [address]- 8373 Mar, [facility] [place] [facility] [address] [id number] [place] [address]- 8761 Mar, [facility] [place] [facility] [address] [id number] [place] [address]- 1507 Mar, [facility] [place] [facility] [address] [id number] [place]- 6352 Mar, [facility] [place] [facility] [address] [id number] [place] [address]- 8765 Mar, [facility] [place] [facility] [address] [id number] [place] [address]- 9284 Feb, [facility] [place] [facility] [address] [id number] [place] [address]- 3552 Feb, [facility] [place] [facility] [address] [id number] [place] [address]- 7443 Feb, [facility] [place] [facility] [address] [id number] [place] [address]- 1100 Feb, [facility] [place] [facility] [address] [id number] [place] [address]- 0840 Feb, [facility] [place] [facility] [address] [id number] [place] [address]- 0109 Feb, [facility] [place] [facility] [address] [id number] [place] [address]- 3849 Jan, [facility] [place] [facility] [address] [id number] [place] [address]- 0664 Jan, [facility] [place] [facility] [address] [id number] [place] [address]- 8332 Jan, [facility] [place] [facility] [address] [id number] [place] [address]- 4274 Jan, [facility] [place] [facility] [address] [id number] [place] [address]- 8496 Jan, [facility] [place] [facility] [address] [id number] [place] [address]- 8851 Jan, [facility] [place] [facility] [address] [id number] [place] [address]- 3050 Jan, [facility] [place] [facility] [address] [id number] [place] [address]- 9145 Jan, [facility] [place] [facility] [address] [id number] [place] [address]- 9107 Dec, [facility] [place] [facility] [address] [id number] [place] [address]- 1156 Dec, [facility] [place] [facility] [address] [id number] [place] [address]- 1056 Dec, [facility] [place] [facility] [address] [id number] [place] [address]- 2364 Dec, [facility] [place] [facility] [address] [id number] [place] [address]- 2990 Dec, [facility] [place] [facility] [address] [id number] [place] [address]- 3987 Dec, [facility] [place] [facility] [address] [id number] [place] [address]- 6893 Dec, [facility] [place] [facility] [address] [id number] [place] [address]- 9332 Dec, [facility] [place] [facility] [address] [id number] [place] [address]- 8935 October, [facility] [place] [facility] [address] [id number] [place] [address]- 2729 October, [facility] [place] [facility] [address] [id number] [place] [address]- 4985 Sep, [facility] [place] [facility] [address] [id number] [place] [address]- 2301 Sep, [facility] [place] [facility] [address] [id number] [place] [address]- 0959 Sep, [facility] [place] [facility] [address] [id number] [place] [address]- 8063 Sep, [facility] [place] [facility] [address] [id number] [place] [address]- 9647 Sep, [facility] [place] [facility] [address] [id number] [place] [address]- 3629 Sep, [facility] [place] [facility] [address] [id number] [place] [address]- 6179 Sep, [facility] [place] [facility] [address] [id number] [place] [address]- 4220 Sep, [facility] [place] [facility] [address] [id number] [place] [address]- 2748 Sep, [facility] [place] [facility] [address] [id number] [place] [address]- 4837 Sep, [facility] [place] [facility] [address] [id number] [place] [address]- 2643 Sep, [facility] [place] [facility] [address] [id number] [place] [address]- 9639 Sep, [facility] [place] [facility] [address] [id number] [place] [address]- 5235 Aug, [facility] [place] [facility] [address] [id number] [place] [address]- 5714 Aug, [facility] [place] [facility] [address] [id number] [place] [address]- 0708 Aug, [facility] [place] [facility] [address] [id number] [place] [address]- 9251 Jun, [facility] [place] [facility] [address] [id number] [place] [address]- 8829 Jun, [facility] [place] [facility] [address] [id number] [place] [address]- 8151 Jun, [facility] [place] [facility] [address] [id number] [place] [address]- 0200 Jun, [facility] [place] [facility] [address] [id number] [place] [address]- 7270 Jun, [facility] [place] [facility] [address] [id number] [place] [address]- 8491 Jun, [facility] [place] [facility] [address] [id number] [place] [address] Jun, [facility] [place] [facility] [address] [id number] [place] [address] Jun, [facility] [place] [facility] [address] [id number] [place] [address] Jun, [facility] [place] [facility] [address] [id number] [place] [address] Jun, [facility] [place] [facility] [address] [id number] [place] [address] May, [facility] [place] [facility] [address] [id number] [place] [address] May, [facility] [place] [facility] [address] [id number] [place] [address] May, [facility] [place] [facility] [address] [id number] [place] [address] May, [facility] [place] [facility] [address] [id number] [place] [address] Apr, [facility] [place] [facility] [address] [id number] [place] [address] Apr, [facility] [place] [facility] [address] [id number] [place] [address] Apr, [facility] [place] [facility] [address] [id number] [place] [address] Apr, [facility] [place] [facility] [address] [id number] [place] [address] Apr, [facility] [place] [facility] [address] [id number] [place] [address] Apr, [facility] [place] [facility] [address] [id number] [place] [address] Apr, [facility] [place] [facility] [address] [id number] [place] [address] Apr, [facility] [place] [facility] [address] [id number] [place] [address] Mar, [facility] [place] [facility] [address] [id number] [place] [address] Mar, [facility] [place] [facility] [address] [id number] [place] [address] Mar, [facility] [place] [facility] [address] [id number] [place] [address] Mar, [facility] [place] [facility] [address] [id number] [place] [address] Mar, [facility] [place] [facility] [address] [id number] [place] [address] Feb, [facility] [place] [facility] [address] [id number] [place] [address] Feb, [facility] [place] [facility] [address] [id number] [place] [address] Feb, [facility] [place] [facility] [address] [id number] [place] [address] Feb, [facility] [place] [facility] [address] [id number] [place] [address] Feb, [facility] [place] [facility] [address] [id number] [place] [address] Jan, [facility] [place] [facility] [address] [id number] [address] Jan, [facility] [place] [facility] [address] [id number] [address] Nov, [facility] [place] [facility] [address] [id number] [place] [address] Nov, [facility] [place] [facility] [address] [id number] [address] Nov, [facility] [place] [facility] [address] [id number] [address] Nov, [facility] [place] [facility] [address] [id number] [place] [address] October, [facility] [address] [id number] [place] [address] Sep, [facility] [place] [facility] [address] [id number] [place] [address] Aug, [facility] [place] [facility] [address] [id number] [place] [address] Aug, [facility] [place] [facility] [address] [id number] [place] [address] Aug, [facility] [place] [facility] [address] [id number] [place] [address] Aug, [facility] [place] [facility] [address] [id number] [place] [address] Jul, [facility] [address] [id number] [place] [address] Jun, [facility] [address] [id number] [place] [address] Jun, [facility] [place] [facility] [address] [facility] [id number] [place] [address] May, [facility] [address] [facility] [id number] [place] [address] May, [facility] [place] [facility] [address] [facility] [id number] [id number] Mar, [facility] [place] [facility] [address] [id number] [place] [address] Mar, [facility] [place] [facility] [address] [id number] [place] [address] Mar, [facility] [place] [facility] [address] [facility] [id number] [place] [address] Mar, [facility] [place] [facility] [address] [facility] [id number] [place] [address] Mar, [facility] [place] [facility] [address] [id number] [place] [address] 23 Mar, 2011 [facility] [place] [facility] [address] [id number] [place] [address] 23 Mar, 2011 [facility] [place] [facility] [address] [id number] [place] [address] 23 Mar, 2012 [facility] [place] [facility] [address] [id number] [place] [address] 22 Mar, 2012 [facility] [place] [facility] [address] [id number] [place] [address] Mar, [facility] [place] [facility] [address] [id number] [place] [address] 20 Mar, 2012 [facility] [place] [facility] [address] [id number] [place] [address] 17 Mar, 2012 [facility] [place] [facility] [address] [id number] [place] [address] 2872 17 Mar, 2012 [facility] [place] [facility] [address] [id number] [place] [address] 15 Mar, 2012 [facility] [place] [facility] [address] [id number] [place] [address] 15 Mar, 2012 [facility] [place] [facility] [address] [id number] [place] [address] 8636 15 Mar, 2012 [facility] [place] [facility] [address] [id number] [place] [address] 15 Mar, 2012 [facility] [place] [facility] [address] [id number] [place] [address] 11 Mar, 2012 [facility] [place] [facility] [address] [id number] [place] [address] 2817 11 Mar, 2012 [facility] [place] [facility] [address] [id number] [place] [address] 67[address] 08 Mar, 2012 [facility] [place] [facility] [address] [id number] [place] [address]277 08 Mar, 2012 [facility] [place] [facility] [address] [id number] [place] [address]289 03 Mar, 2012 [facility] [place] [facility] [address] [id number] [place] [address] Mar, [facility] [place] [facility] [address] [id number] [place] [address] 19 Feb, 2012 [facility] [place] [facility] [address] [id number] [place] [address] 18 Feb, 2012 [facility] [place] [facility] [address] [id number] [place] [address] 9685 17 Feb, 2012 [facility] [place] [facility] [address] [id number] [place] [address] 37[address] 14 Feb, 2012 [facility] [place] [facility] [address] [id number] [place] [address]694 14 Feb, 2012 [facility] [place] [facility] [address] [id number] [place] [address] 74[address] 12 Feb, 2012 [facility] [place] [facility] [address] [id number] [place] [address] 8827 10 Feb, 2012 [facility] [place] [facility] [address] [id number] [place] [address] 31 Jan, 2012 [facility] [place] [facility] [address] [id number] [place] [address] 30 Jan, 2012 [facility] [place] [facility] [address] [id number] [place] [address] Jan, [facility] [place] [facility] [address] [id number] [place] [address] Jan, [facility] [place] [facility] [address] [id number] [place] [address] Jan, [facility] [place] [facility] [address] [id number] [place] [address] 17 Jan, 2012 [facility] [place] [facility] [address] [id number] [place] [address] 17 Jan, 2012 [facility] [address] [id number] [place] [address] 7363 16 Jan, 2012 [facility] [place] [facility] [address] [id number] [place] [address] 3256 13 Jan, 2012 [facility] [address] [id number] [place] [address] 07 Jan, 2012 [facility] [place] [facility] [address] [id number] [place] [address] 26 Dec, 2011 [facility] [address] [id number] [place] [address] 8738 24 Dec, 2011 [facility] [address] [id number] [place] [address] 23 Dec, 2011 [facility] [address] [id number] [place] [address] Dec, [facility] [address] [id number] [place] [address] 18 Dec, 2011 [facility] [place] [facility] [address] [id number] [place] [address] 8987 17 Dec, 2011 [facility] [address] [id number] [place] [address]277 16 Dec, 2011 [facility] [place] [facility] [address] [id number] [place] [address] 14 Dec, 2011 [facility] [place] [facility] [address] [id number] [place] [address] Dec, [facility] [place] [facility] [address] [id number] [place] [address] 4660 Dec, [facility] [place] [facility] [address] [id number] [place] [address]- 8866 06 Dec, 2011 [facility] [place] [facility] [address] [id number] [place] [address]- 2009 Nov, [facility] [address] [id number] [address] 27 Nov, 2011 [facility] [id number] [address] Nov, [facility] [id number] [address] 23 Nov, 2011 [facility] [id number] [address] Nov, [facility] [id number] [address] Nov, [facility] [id number] [place] [address] Nov, [facility] [id number] [place] [address]- [address] Nov, [facility] [id number] [place] [address] Nov, [facility] [id number] [address] Nov, [facility] [id number] [address] October, IMMUNIZATIONS No Known Immunizations SOCIAL HISTORY Never Assessed REASON FOR VISIT Refill request PLAN OF CARE VITAL SIGNS MEDICATIONS Medication Instructions Dosage Frequency Start Date End Date Duration Status Dicyclomine HCl 20 mg Orally Four times a day-Must have appt for further refills 1 tablet Active RESULTS No Results PROCEDURES No Known [...]
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
[2018-08-12 17:07] LABS: BASOPHILS % (AUTO) 0 % (0-10); EOSINOPHILS % (AUTO) 0 % (0-10); HEMATOCRIT 41 % (35-52); HEMOGLOBIN 13.5 G/DL (11.5-16.0); LYMPHOCYTES # (AUTO) 1.8 X 10^3 (1.0-4.0); LYMPHOCYTES % (AUTO) 25 % (12-44); MEAN CORPUSCULAR HEMOGLOBIN 29 PG (25-34); MEAN CORPUSCULAR HGB CONC 33 G/DL (32-36); MEAN CORPUSCULAR VOLUME 88 FL (80-99); MEAN PLATELET VOLUME 9.7 FL (7.4-10.4); MONOCYTES # (AUTO) 0.7 X 10^3 (0.0-1.0); MONOCYTES % (AUTO) 10 % (0-12); NEUTROPHILS # (AUTO) 4.7 X 10^3 (1.8-7.8); NEUTROPHILS % (AUTO) 65 % (42-75); PLATELET COUNT 343 10^3/uL (130-400); RED CELL DISTRIBUTION WIDTH 14.9 % (10.0-14.5); WHITE BLOOD COUNT 7.3 10^3/uL (4.3-11.0)
--- NOTE | 2018-08-12 17:09 | ED Abdominal Pain ---
General Chief Complaint: Abdominal/GI Problems Stated Complaint: THROWING UP,SEEN HERE RECENTLY,NOT GETTING BETTER Nursing Triage Note: pt was seen in ER Saturday et was told if she doesn't get better to come back. Today pt is continuing to vomit and abd pain diffusely. Last BM over a week or more. Sepsis Screen: Possible Sepsis Risk Source of Information: Patient Exam Limitations: No Limitations History of Present Illness Date Seen by Provider: Aug 12, 2018 Time Seen by Provider: 17:06 Initial Comments 42-year-old female who presents to the emergency room with complaints of severe nausea vomiting for the past 7 days. She was seen and evaluated in the emergency room 2 days ago and was told she had a normal workup and instructed to come back to the emergency room if her symptoms persisted. She reports that this morning when she woke up she had severe nausea and vomiting that led to her vomiting up her bowel. She also reports that she has not had a bowel movement in 11 days. She reports she has chronic constipation. She denies fevers and chills. Timing/Duration: 1 Week Severity/Quality: Cramping Location: Generalized Abdomen Radiation: Back Associated Symptoms: Nausea/Vomiting Allergies and Home Medications Allergies Coded Allergies: morphine (Verified Allergy, Unknown, CAUSES "REBOUND HEADACHES", 08/20/13) baclofen (Verified Adverse Reaction, Severe, 06/13/15) PATIENT UNAWARE OF REACTION BUT WAS HOSPITALIZED AFTER TAKING MEDICATION AND WAS TOLD IT WAS A REACTION DUE TO THE MEDICATION SHE TOOK. meloxicam (Verified Adverse Reaction, Severe, 06/13/15) PATIENT UNAWARE OF REACTION BUT WAS HOSPITALIZED AFTER TAKING MEDICATION AND WAS TOLD IT WAS A REACTION DUE TO THE MEDICATION SHE TOOK. NSAIDS (Non-Steroidal Anti-Inflamma (Verified Adverse Reaction, Mild, have IBS and avoid NSAIDS, 12/04/12) Home Medications Dicyclomine Hcl 20 Mg Tablet, 20 MG PO QID, (Reported) Ondansetron 8 Mg Tab.rapdis, 8 MG PO Q6H PRN for NAUSEA/VOMITING Prescribed by: FAMILIA ELISE on 01/31/161910 Ondansetron 4 Mg Tab.rapdis, 4 MG PO Q6H PRN for NAUSEA/VOMITING-1ST LINE Prescribed by: PAULA COLINDRES on 08/11/18 1232 Promethazine HCl 25 Mg Tablet, 25 MG PO Q6H PRN for NAUSEA/VOMITING Prescribed by: PAULA COLINDRES on 08/11/18 1232 Propranolol Hcl 10 Mg Tablet, 40 MG PO DAILY, (Reported) Patient Home Medication List Home Medication List Reviewed: Yes Review of Systems Review of Systems Constitutional: see HPI; No chills, No fever Past Hkmesin-Iyfjac-Diurve Hx Patient Social History Alcohol Use: Denies Use Recreational Drug Use: No Smoking Status: Never a Smoker 2nd Hand Smoke Exposure: No Recent Foreign Travel: No Contact w/Someone Who Travel: No Recent Infectious Disease Expo: No Recent Hopitalizations: No Immunizations Up To Date Tetanus Booster (TDap): More than 5yrs PED Vaccines UTD: No Date of Pneumonia Vaccine: Mar 03, 2014 Date of Influenza Vaccine: Mar 03, 2015 Seasonal Allergies Seasonal Allergies: No Past Medical History Surgeries: Yes (COLONOSCOPY) Bladder Surgery, Gallbladder, 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, Tubal Ligation Respiratory: Yes Asthma Currently Using CPAP: No Currently Using BIPAP: No Cardiac: No Neurological: Yes ("SEIZURE WITH LOW BP" PER PT) Seizure Disorder : No 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 advised multiple abdominal surgeries, cancer cells) Irritable Bowel Musculoskeletal: No Endocrine: No HEENT: No Loss of Vision: Denies Cancer: Yes Cervical, Colon Psychosocial: Yes Anxiety, Depression Integumentary: No Blood Disorders: No Adverse Reaction/Blood Tranf: No Family Medical History Diabetes mellitus 19 FATHER FHx: brain tumor 19 MOTHER HPV infection G8 SISTER No Family History of: AIDS Abdominal aortic aneurysm Bosque's disease Alcoholism Alzheimer's disease Aphasia Arthritis Asthma Cancer of mouth Cardiovascular disease Cataracts Colon cancer Completed stroke Congenital disease Congenital heart disease Coronary thrombosis Cystic fibrosis Deafness or hearing loss Dementia Drug abuse Dysphasia Fibrocystic disease of breast Gastroenteritis Glaucoma Headache disorder Hypercholesterolemia Hypertension Infertility Kidney disease Myocardial infarction Neoplasm Not obtainable due to adoption Osteoporosis Parkinson's disease Prostate cancer Psychosocial problem Respiratory disorder Seizure disorder Severe allergy Thyroid disease Tuberculosis Visual disorder Heart Disease, Hypertension Physical Exam Vital Signs Vital Signs - First Documented 08/12/18 15:19 Temp 101.2 Pulse 99 Resp 20 B/P (MAP) 165/94 (117) Pulse Ox 99 O2 Delivery Room Air Capillary Refill : Less Than 3 Seconds Height/Weight/BMI Height: 5'6.00" Weight: 205lbs. 9.0oz. 92.985633wj; 27.60 BMI Method:Stated Progress/Results/Core Measures Results/Orders Lab Results Laboratory Tests Test 08/12/18 16:50 08/12/18 16:53 08/12/18 18:06 Range/Units White Blood Count 7.3 4.3-11.0 10^3/uL Red Blood Count 4.66 4.35-5.85 10^6/uL Hemoglobin 13.5 11.5-16.0 G/DL Hematocrit 41 35-52 % Mean Corpuscular Volume 88 80-99 FL Mean Corpuscular Hemoglobin 29 25-34 PG Mean Corpuscular Hemoglobin Concent 33 32-36 G/DL Red Cell Distribution Width 14.9 H 10.0-14.5 % Platelet Count 343 130-400 10^3/uL Mean Platelet Volume 9.7 7.4-10.4 FL Neutrophils (%) (Auto) 65 42-75 % Lymphocytes (%) (Auto) 25 12-44 % Monocytes (%) (Auto) 10 0-12 % Eosinophils (%) (Auto) 0 0-10 % Basophils (%) (Auto) 0 0-10 % Neutrophils # (Auto) 4.7 1.8-7.8 X 10^3 Lymphocytes # (Auto) 1.8 1.0-4.0 X 10^3 Monocytes # (Auto) 0.7 0.0-1.0 X 10^3 Eosinophils # (Auto) 0.0 0.0-0.3 10^3/uL Basophils # (Auto) 0.0 0.0-0.1 10^3/uL Sodium Level 143 135-145 MMOL/L Potassium Level 4.5 3.6-5.0 MMOL/L Chloride Level 102 98-107 MMOL/L Carbon Dioxide Level 26 21-32 MMOL/L Anion Gap 15 H 5-14 MMOL/L Blood Urea Nitrogen 12 7-18 MG/DL Creatinine 0.89 0.60-1.30 MG/DL Estimat Glomerular Filtration Rate > 60 BUN/Creatinine Ratio 13 Glucose Level 105 70-105 MG/DL Calcium Level 10.1 8.5-10.1 MG/DL Corrected Calcium 8.5-10.1 MG/DL Total Bilirubin 0.3 0.1-1.0 MG/DL Aspartate Amino Transf (AST/SGOT) 78 H 5-34 U/L Alanine Aminotransferase (ALT/SGPT) 85 H 0-55 U/L Alkaline Phosphatase 87 40-136 U/L Total Protein 8.4 H 6.4-8.2 GM/DL Albumin 4.8 H 3.2-4.5 GM/DL Amylase Level 25 25-125 U/L Lipase 34 8-78 U/L Urine Color YELLOW Urine Clarity SLIGHTLY CLOUDY Urine pH 6.5 5-9 Urine Specific [place] 1.015 L 1.016-1.022 Urine Protein 2+ H NEGATIVE Urine Glucose (UA) NEGATIVE NEGATIVE Urine Ketones 4+ H NEGATIVE Urine Nitrite NEGATIVE NEGATIVE Urine Bilirubin 1+ H NEGATIVE Urine Urobilinogen 1 NORMAL MG/DL Urine Leukocyte Esterase 1+ H NEGATIVE Urine RBC (Auto) NEGATIVE NEGATIVE Urine RBC NONE /HPF Urine WBC NONE /HPF Urine Squamous Epithelial Cells 10-25 H /HPF Urine Crystals NONE /LPF Urine Bacteria TRACE /HPF Urine Casts NONE /LPF Urine Mucus SMALL H /LPF Urine Culture Indicated NO My Orders Orders - SADAF WALSH Comprehensive Metabolic Panel (08/12/18 17:02) Lipase (08/12/18 17:02) Amylase (08/12/18 17:02) Ua Culture If Indicated (08/12/18 17:02) Saline Lock/Iv-Start (08/12/18 17:02) Cbc With Automated Diff (08/12/18 17:02) Ct Abdomen/Pelvis W (08/12/18 17:02) Ns Iv 1000 Ml (Sodium Chloride 0.9%) (08/12/18 17:15) Fentanyl Injection (Sublimaze Injection (08/12/18 17:15) Ondansetron Injection (Zofran Injectio (08/12/18 17:15) Iohexol Injection (Omnipaque 350 Mg/Ml 1 (08/12/18 17:45) Received Contrast (Contrast Received) (08/12/18 17:45) Ns (Ivpb) (Sodium Chloride 0.9% Ivpb Bag (08/12/18 17:45) Promethazine Injection (Phenergan Injec (08/12/18 18:00) Antacid Suspension (Mylanta Suspension (08/12/18 18:15) Lidocaine 2% Viscous 15 Ml (Xylocaine Vi (08/12/18 18:15) Medications Given in ED Current Medications Medications Dose Ordered Sig/Judi Route Start Time Stop Time Status Last Admin Dose Admin Al Hydrox/Mg Hydrox/Simethicone 30 ml ONCE ONCE PO 08/12/18 18:15 08/12/18 18:16 DC 08/12/18 18:15 30 ML Fentanyl Citrate 50 mcg ONCE ONCE IVP 08/12/18 17:15 08/12/18 17:16 DC 08/12/18 17:15 50 MCG Iohexol 100 ml ONCE ONCE IV 08/12/18 17:45 08/12/18 18:10 DC 08/12/18 17:41 100 ML Lidocaine HCl 15 ml ONCE ONCE PO 08/12/18 18:15 08/12/18 18:16 DC 08/12/18 18:15 15 ML Ondansetron HCl 8 mg ONCE ONCE IVP 08/12/18 17:15 08/12/18 17:16 DC 08/12/18 17:15 8 MG Promethazine HCl 25 mg ONCE ONCE IVP 08/12/18 18:00 08/12/18 18:01 DC 08/12/18 18:06 25 MG Sodium Chloride 100 ml ONCE ONCE IV 08/12/18 17:45 08/12/18 18:10 DC 08/12/18 17:41 80 ML Vital Signs/I&O 08/12/18 15:19 Temp 101.2 Pulse 99 Resp 20 B/P (MAP) 165/94 (117) Pulse Ox 99 O2 Delivery Room Air Blood Pressure Mean: 117 Departure Impression Primary Impression: Viral gastroenteritis Disposition: 01 HOME, SELF-CARE Condition: Stable/Unchanged Departure-Patient Inst. Decision time for Depature: 18:42 Referrals: [facility] (PCP/Family) Primary Care Physician Patient Instructions: Nausea and Vomiting, Adult (DC) Add. Discharge Instructions: Take medications as directed. Continue to use the Zofran and Phenergan as previously prescribed. Clear liquid diet for 24 hours and then advance as tolerated. Follow-up with your doctor within 1 week for recheck, call first thing tomorrow morning for an appointment time. Return back to the emergency room for worsening symptoms or concerns as needed. All discharge instructions reviewed with patient and/or family. Voiced understanding. Scripts Hyoscyamine Sulfate (Levsin-Sl) 0.125 Mg Tab.subl 0.125 MG SL Q4H PRN for CRAMPS, #20 TAB Prov: SADAF WALSH 08/12/18 SADAF WALSH Aug 12, 2018 17:09
[2018-08-12] MEDS ORDERED: fentaNYL INJECTION 100 MCG/2 ML AMP IVP ONE (17:15)
[2018-08-12] MEDS ORDERED: ONDANSETRON 4 MG/2 ML (SDV) Z0FRAN IVP ONE (17:15)
[2018-08-12] MEDS ORDERED: NS IV 1000 ML 1,000 ML IV SCH (17:15)
[2018-08-12 17:23] LABS: ALANINE AMINOTRANSFERASE 85 U/L (0-55); ALBUMIN 4.8 GM/DL (3.2-4.5); ALKALINE PHOSPHATASE 87 U/L (40-136); AMYLASE 25 U/L (25-125); BILIRUBIN,TOTAL 0.3 MG/DL (0.1-1.0); BUN/CREATININE RATIO 13; CALCIUM 10.1 MG/DL (8.5-10.1); CARBON DIOXIDE 26 MMOL/L (21-32); CHLORIDE 102 MMOL/L (98-107); CREATININE SERUM 0.89 MG/DL (0.60-1.30); GFR ESTIMATED > 60; GLUCOSE 105 MG/DL (70-105); LIPASE 34 U/L (8-78); POTASSIUM 4.5 MMOL/L (3.6-5.0); SODIUM 143 MMOL/L (135-145); TOTAL PROTEIN 8.4 GM/DL (6.4-8.2)
[2018-08-12] MEDS ORDERED: NS 100 ML (IVPB) BAG IV ONE (17:45)
[2018-08-12] MEDS ORDERED: IOHEXOL 350 MG/ML 100 ML (OMNIPAQUE 350) VIAL IV ONE (17:45)
[2018-08-12] MEDS ORDERED: RECEIVED CONTRAST 20 ML VIAL IV SCH (17:45)
[2018-08-12] MEDS ORDERED: PROMETHAZINE INJ 25 MG/ML (PHENERGAN) AMP IVP ONE (18:00)
--- NOTE | 2018-08-12 18:00 | Diagnostic Imaging Report ---
PROCEDURE: CT abdomen and pelvis with contrast. TECHNIQUE: Multiple contiguous axial images were obtained through the abdomen and pelvis after administration of intravenous contrast. INDICATION: Upper abdominal pain radiating to the back as well as nausea and vomiting. COMPARISON: Comparison is made with prior CT one day earlier. FINDINGS: Lung bases remain clear. Liver is unremarkable apart from generalized low density consistent with hepatic steatosis. No mass is seen. Gallbladder is surgically absent. No biliary ductal dilatation is seen. The pancreas and spleen are unremarkable. There is no adrenal mass. Kidneys are without evidence of hydronephrosis. Aorta is normal caliber. Bowel loops remain normal caliber. No definite obstruction is seen. There is no ascites. Bladder is unremarkable. No inflammatory process is detected. IMPRESSION: Continued unremarkable CT of the abdomen and pelvis. No acute abnormality is detected. Dictated by: Dictated on workstation # [id number]
[2018-08-12 18:13] LABS: CLARITY,URINE SLIGHTLY CLOUDY; COLOR,URINE YELLOW; GLUCOSE, URINE (UA) NEGATIVE (NEGATIVE); KETONES,URINE 4+ (NEGATIVE); LEUKOCYTE ESTERASE ,URINE 1+ (NEGATIVE); NITRITE,URINE NEGATIVE (NEGATIVE); PH,URINE 6.5 (5-9); PROTEIN,URINE 2+ (NEGATIVE); UROBILINOGEN,URINE 1 MG/DL (NORMAL)
[2018-08-12] MEDS ORDERED: ANTACID SUSP 30 ML UDC (MYLANTA) PO ONE (18:15)
[2018-08-12] MEDS ORDERED: LIDOCAINE 2% VISCOUS 15 ML UDC PO ONE (18:15)
[2018-08-12 18:20] LABS: BACTERIA,URINE TRACE /HPF; BILIRUBIN,URINE 1+ (NEGATIVE)
[2018-08-12] MEDS ORDERED: HYOS0.1283 SL (18:44)
[2018-08-12] MEDS ORDERED: HYOSCYAMINE 0.125 MG (LEVSIN) TAB PO ONE (18:45)
[2018-08-12 18:49] VITALS: BP 165/93
== END 2018-08-12 18:49 | disposition home or self-care (01) ==
LOC: EDUNIT# 14:59 → ER 15:00
DX: A08.4 Viral intestinal infection, unspecified (principal); J45.909 Unspecified asthma, uncomplicated; G40.909 Epilepsy, unspecified, not intractable, without status epilepticus; K58.9 Irritable bowel syndrome, unspecified; F41.9 Anxiety disorder, unspecified; F32.9 Major depressive disorder, single episode, unspecified; Z85.038 Personal history of other malignant neoplasm of large intestine; Z85.41 Personal history of malignant neoplasm of cervix uteri; Z87.440 Personal history of urinary (tract) infections; Z88.5 Allergy status to narcotic agent; Z88.8 Allergy status to other drugs, medicaments and biological substances; Z88.6 Allergy status to analgesic agent; Z87.19 Personal history of other diseases of the digestive system; Z90.710 Acquired absence of both cervix and uterus; Z98.51 Tubal ligation status; Z98.890 Other specified postprocedural states
CPT/HCPCS: 36415; 74177; 80053; 81000; 82150; 83690; 85025

== ENCOUNTER 2018-09-05 04:42 | Emergency (ER) | payer SELFPAY ==
[~2018-09-05] VITALS: Ht 162.6 cm; Wt 93.0 kg
[~2018-09-05 04:42] MED LIST changes: +HYOS0.1283 SL
[2018-09-05] MEDS ORDERED: ONDANSETRON 4 MG (ZOFRAN) ORAL DISSOLVE TAB PO STA (04:58)
[2018-09-05] MEDS ORDERED: KETOROLAC 60 MG/2 ML VIAL IM ONE (05:00)
--- NOTE | 2018-09-05 05:06 | ED GI ---
General Chief Complaint: Abdominal/GI Problems Stated Complaint: THROWING UP Source of Information: Patient Exam Limitations: No Limitations History of Present Illness Date Seen by Provider: Sep 05, 2018 Time Seen by Provider: 04:53 Initial Comments Patient presents to the ER by private conveyance with chief complaint of nausea vomiting coughing for the past day and a half. She is been using her Zofran that was left over from a previous episode of vomiting and that's been working well for her but she ran out and her last dose was 4 hours ago. She started having some intense cramping with the vomiting and was planning on seeing her primary care doctor this morning however she does not think she will make. She is not been able to use any Tylenol or ibuprofen because the vomiting. She's had some chills but no objective fever. She has had one episode of diarrhea in the last 24 hours. She has a history of IBS with loose stools. She's had a nonproductive dry cough. She denies tobacco alcohol or drugs. No history of COPD or asthma. Allergies and Home Medications Allergies Coded Allergies: morphine (Verified Allergy, Unknown, CAUSES "REBOUND HEADACHES", 08/20/13) baclofen (Verified Adverse Reaction, Severe, 06/13/15) PATIENT UNAWARE OF REACTION BUT WAS HOSPITALIZED AFTER TAKING MEDICATION AND WAS TOLD IT WAS A REACTION DUE TO THE MEDICATION SHE TOOK. meloxicam (Verified Adverse Reaction, Severe, 06/13/15) PATIENT UNAWARE OF REACTION BUT WAS HOSPITALIZED AFTER TAKING MEDICATION AND WAS TOLD IT WAS A REACTION DUE TO THE MEDICATION SHE TOOK. NSAIDS (Non-Steroidal Anti-Inflamma (Verified Adverse Reaction, Mild, have IBS and avoid NSAIDS, 12/04/12) Home Medications Dicyclomine Hcl 20 Mg Tablet, 20 MG PO QID, (Reported) Hyoscyamine Sulfate 0.125 Mg Tab.subl, 0.125 MG SL Q4H PRN for CRAMPS Prescribed by: SADAF WALSH on 08/12/18 184 Ondansetron 8 Mg Tab.rapdis, 8 MG PO Q6H PRN for NAUSEA/VOMITING Prescribed by: FAMILIA ELISE on 01/31/161910 Ondansetron 4 Mg Tab.rapdis, 4 MG PO Q6H PRN for NAUSEA/VOMITING-1ST LINE Prescribed by: PAULA COLINDRES on 08/11/18 1232 Promethazine HCl 25 Mg Tablet, 25 MG PO Q6H PRN for NAUSEA/VOMITING Prescribed by: PAULA COLINDRES on 08/11/18 1232 Propranolol Hcl 10 Mg Tablet, 40 MG PO DAILY, (Reported) Patient Home Medication List Home Medication List Reviewed: Yes Review of Systems Review of Systems Constitutional: chills; No fever; malaise EENTM: No Blurred Vision, No Double Vision Respiratory: Cough; Denies Shortness of Air Cardiovascular: Denies Chest Pain, Denies Edema Gastrointestinal: Abdominal Pain; Denies Constipated; Diarrhea, Nausea, Poor Fluid Intake, Vomiting Genitourinary: Denies Burning, Denies Discharge, Denies Drainage Musculoskeletal: No back pain, No joint pain Past Srdqiec-Kngkbt-Fmrmys Hx Patient Social History Alcohol Use: Denies Use Recreational Drug Use: No Smoking Status: Never a Smoker 2nd Hand Smoke Exposure: No Recent Foreign Travel: No Contact w/Someone Who Travel: No Recent Hopitalizations: No Immunizations Up To Date Tetanus Booster (TDap): More than 5yrs PED Vaccines UTD: No Date of Pneumonia Vaccine: Mar 03, 2014 Date of Influenza Vaccine: Mar 03, 2015 Seasonal Allergies Seasonal Allergies: No Past Medical History Surgeries: Yes (COLONOSCOPY) Bladder Surgery, Gallbladder, 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, Tubal Ligation Respiratory: Yes Asthma Currently Using CPAP: No Currently Using BIPAP: No Cardiac: No Neurological: Yes ("SEIZURE WITH LOW BP" PER PT) Seizure Disorder 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 advised multiple abdominal surgeries, cancer cells) Irritable Bowel Musculoskeletal: No Endocrine: No HEENT: No Loss of Vision: Denies Cancer: Yes Cervical, Colon Psychosocial: Yes Anxiety, Depression Integumentary: No Blood Disorders: No Adverse Reaction/Blood Tranf: No Family Medical History Diabetes mellitus 19 FATHER FHx: brain tumor 19 MOTHER HPV infection G8 SISTER No Family History of: AIDS Abdominal aortic aneurysm [place]inton's disease Alcoholism Alzheimer's disease Aphasia Arthritis Asthma Cancer of mouth Cardiovascular disease Cataracts Colon cancer Completed stroke Congenital disease Congenital heart disease Coronary thrombosis Cystic fibrosis Deafness or hearing loss Dementia Drug abuse Dysphasia Fibrocystic disease of breast Gastroenteritis Glaucoma Headache disorder Hypercholesterolemia Hypertension Infertility Kidney disease Myocardial infarction Neoplasm Not obtainable due to adoption Osteoporosis Parkinson's disease Prostate cancer Psychosocial problem Respiratory disorder Seizure disorder Severe allergy Thyroid disease Tuberculosis Visual disorder Heart Disease, Hypertension Physical Exam Vital Signs Vital Signs - First Documented 09/05/18 04:49 Temp 97.5 Pulse 116 Resp 17 B/P (MAP) 134/105 (115) Pulse Ox 98 O2 Delivery Room Air Capillary Refill : Height/Weight/BMI Height: 5'6.00" Weight: 205lbs. 9.0oz. 92.008467rd; 27.60 BMI Method:Stated General Appearance: WD/WN, mild distress HEENT: normal ENT inspection, pharynx normal Respiratory: normal breath sounds, no respiratory distress, no accessory muscle use Cardiovascular: normal peripheral pulses, regular rate, rhythm, no edema Gastrointestinal: normal bowel sounds, soft, tenderness (epigastric region) Extremities: no pedal edema, normal capillary refill Neurologic/Psychiatric: alert, normal mood/affect, oriented x 3 Skin: normal color, warm/dry Progress/Results/Core Measures Results/Orders Micro Results Microbiology 09/05/18 Influenza Types A,B Antigen (RADHA) - Final, Complete My Orders Orders - PAULA COLINDRES Ua Culture If Indicated (09/05/18 04:43) Urine Bedside (09/05/18 04:43) Influenza A And B Antigens (09/05/18 04:58) Ketorolac Injection (Toradol Injection) (09/05/18 05:00) Ondansetron Oral Dissolve Tab (Zofran (09/05/18 04:58) Promethazine Injection (Phenergan Injec (09/05/18 05:30) Medications Given in ED Current Medications Medications Dose Ordered Sig/Judi Route Start Time Stop Time Status Last Admin Dose Admin Ketorolac Tromethamine 60 mg ONCE ONCE IM 09/05/18 05:00 09/05/18 05:01 DC 09/05/18 05:09 60 MG Vital Signs/I&O 09/05/18 04:49 Temp 97.5 Pulse 116 Resp 17 B/P (MAP) 134/105 (115) Pulse Ox 98 O2 Delivery Room Air Progress Progress Note #1: Time: 05:06 Progress Note Really give her some Zofran and a shot of Toradol and check for influenza. If she can produce urine we will check that however other than her mild tachycardia she does not have a fever presently. If her symptoms have improved we will allow her to go home with some more nausea medicine for her likely viral gastroenteritis and colitis. Progress Note #2: Time: 05:29 Progress Note Patient is feeling much better. Her nausea is not totally under control however her cramping in her abdomen has abated. She is ready to go home but would like something else for her nausea before she leaves. We have offered some Phenergan and encouraged her to follow up with PCP. Departure Impression Primary Impression: Gastroenteritis and colitis, viral Disposition: HOME, SELF-CARE Condition: Stable Departure-Patient Inst. Decision time for Depature: 05:30 Referrals: [facility] [place] (PCP/Family) Primary Care Physician Patient Instructions: Viral Gastroenteritis, Adult (DC) Add. Discharge Instructions: Continue to use the Zofran 1-2 tablets every 6 hours as needed. You can also use the Phenergan 1 suppository per the rectum every 6 hours control your nausea. Follow-up with primary care as necessary. All discharge instructions reviewed with patient and/or family. Voiced understanding. Scripts Promethazine HCl (Phenergan) 25 Mg Supp.rect 25 MG RC Q6H, #14 SUPP.RECT 0 Refills Prov: PAULA COLINDRES 09/05/18 Ondansetron (Ondansetron Odt) 4 Mg Tab.rapdis 4 MG PO Q6H PRN for NAUSEA/VOMITING, #20 TAB 0 Refills Prov: PAULA COLINDRES 09/05/18 PAULA COLINDRES Sep 05, 2018 05:06
[2018-09-05] MEDS ORDERED: PROMETHAZINE INJ 25 MG/ML (PHENERGAN) AMP IM ONE (05:30)
[2018-09-05] MEDS ORDERED: ONDA4TAB11 PO (05:34)
[2018-09-05] MEDS ORDERED: PROM25SU43 RC (05:34)
[2018-09-05] MEDS ORDERED: RX-ONDANSETRON 4 MG ODT (ZOFRAN) PPK #4 PO STA (05:42)
[2018-09-05 05:45] VITALS: BP 124/95
== END 2018-09-05 05:45 | disposition home or self-care (01) ==
LOC: EDUNIT# 04:42 → ER 04:44
DX: A08.4 Viral intestinal infection, unspecified (principal); J45.909 Unspecified asthma, uncomplicated; G40.909 Epilepsy, unspecified, not intractable, without status epilepticus; K58.9 Irritable bowel syndrome, unspecified; F41.9 Anxiety disorder, unspecified; F32.9 Major depressive disorder, single episode, unspecified; Z85.038 Personal history of other malignant neoplasm of large intestine; Z85.41 Personal history of malignant neoplasm of cervix uteri; Z87.440 Personal history of urinary (tract) infections; Z86.19 Personal history of other infectious and parasitic diseases; Z88.5 Allergy status to narcotic agent; Z88.8 Allergy status to other drugs, medicaments and biological substances; Z88.6 Allergy status to analgesic agent; Z90.710 Acquired absence of both cervix and uterus; Z98.51 Tubal ligation status; Z98.890 Other specified postprocedural states
CPT/HCPCS: 87804

== ENCOUNTER 2018-09-09 13:33 | Emergency (ER) | payer SELFPAY ==
[~2018-09-09] VITALS: Ht 165.1 cm; Wt 86.2 kg
[~2018-09-09 13:33] MED LIST changes: +PROM25SU43 RC
--- OUTSIDE RECORDS SUMMARY | 2018-09-09 13:48 | XMS REPORT ---
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 Name Role Phone Migration, Doctor Unavailable Unavailable PROBLEMS Type Condition ICD9-CM Code BGP00-PJ Code Onset Dates Condition Status SNOMED Code Problem Elevated liver enzymes R74.8 Active 375961090 Problem Abnormal glucose R73.09 Active 948091414 Problem Hyperlipidemia LDL goal <100 E78.5 Active 72521520 Problem Hypokalemia E87.6 Active 31271618 Problem Major depressive disorder, recurrent episode, moderate F33.1 Active 888874174 Problem Tremor, hereditary, benign G25.0 Active 479679556 Problem Chronic migraine without aura with status migrainosus, not intractable G43.701 Active 415294796 Problem 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 Active 77583753 Problem Other chronic pain G89.29 Active 03529597 Problem Seizure disorder G40.909 Active 844658751 Problem Other chronic pain G89.29 Active 91256898 Problem Essential hypertension I10 Active 09970605 Problem Reflux gastritis K29.60 Active 40912664 Problem Irritable bowel K58.9 Active 13653180 Problem Primary insomnia F51.01 Active 8991612 Problem Moderate persistent asthma without complication J45.40 Active 474939770 Problem Moderate persistent asthma with exacerbation J45.41 Active 887809264 Problem Intractable chronic migraine without aura and with status migrainosus G43.711 Active 612834057 ALLERGIES No Information ENCOUNTERS Encounter Location Date Diagnosis [facility] [address] [facility] [id number] [address] Sep, [facility] [id number] [address] Aug, Headache R51 ; Viral upper respiratory tract infection J06.9 and Nausea R11.[address] [facility] [address] [id number] [address] Jun, Reflux gastritis K29.60 [facility] [id number] [place] [address] 18686- 4554 Jun, [facility] [id number] [place] [address] 44446- 3036 May, [facility] [id number] [place] [address] 06721- 6366 May, [facility] [address] 00998- 2026 Apr, Bowel habit changes R19.4 and Acute cystitis without hematuria N30.00 [facility] [address] 95222- 1546 Apr, Pain in right shoulder M25.511 [facility] [id number] [place] [address] 08809- 9036 Apr, [facility] [id number] [place] [address] 55023- 9306 Mar, [facility] [id number] [place] [address] 33385- 6865 Mar, [facility] [id number] [place] [address] 74754- 8356 Mar, [facility] [id number] [place] [address] 88324- 8566 Mar, [facility] [id number] [place] [address] 70337- 0156 Feb, [facility] [id number] [place] [address] 25756- 9858 Feb, [facility] [id number] [place] [address] 45310- 7606 Feb, [facility] [id number] [place] [address] 30184- 7876 Jan, [facility] [id number] [place] [address] 78588- 8818 Dec, [facility] [id number] [place] [address] 60061- 3549 Dec, Other chronic pain G89.29 ; Pain in right shoulder M25.511 and Liver enzyme elevation R74.8 [facility] [id number] [place] [address] 72153- 6601 Nov, Other chronic pain G89.29 and Pain in right shoulder M25.511 [facility] [id number] [place] [address] 33888- 8780 October, [facility] [id number] [place] [address] 40040 -0969 October, Right shoulder pain, unspecified chronicity M25.511 [facility] [id number] [place] [address] 08951- 6029 Aug, Elevated liver enzymes R74.8 and Hyperlipidemia LDL goal < 100 E78.5 [facility] [id number] [place] [address] 33389- 7171 Aug, [facility] [id number] [place] [address] 47317- 4246 Jul, [facility] [id number] [place] [address] 89465- 2148 Jul, Intractable chronic migraine without aura and with status migrainosus G43.711 ; Fever, unspecified fever cause R50.9 and Elevated liver enzymes R74.8 [facility] [address] [place] [address] 61319- 1624 Jun, Difficulty urinating R39.198 and Moderate persistent asthma with exacerbation J45.41 [facility] [id number] [place] [address] 52116- 5844 Jun, [facility] [id number] [place] [address] 93708- 5495 Jun, Moderate persistent asthma with exacerbation J45.41 [facility] [id number] [place] [address] 98276- 7865 May, Elevated liver enzymes R74.8 and Hyperlipidemia LDL goal < 100 E78.5 [facility] [address] 69659- 0063 May, Elevated lipids E78.5 [facility] [address] 08364- 4221 Apr, Elevated liver enzymes R74.8 [facility] [address] 70469- 8844 Apr, Elevated liver enzymes R74.8 [facility] [address] 86954- 4345 Apr, Superior glenoid labrum lesion of right shoulder, subsequent encounter S43.431D [address] 22258- 3864 Apr, Hypokalemia E87.6 ; Major depressive disorder, recurrent episode, moderate F33.1 ; Other abnormalities of breathing R06.89 and Dyspnea, unspecified R06.00 [facility] [address] 92154 [address]653 Mar, Moderate persistent asthma without complication J45.40 [facility] [address] 57937- 2912 Mar, Impingement syndrome of right shoulder M75.41 [facility] [id number] [place] [address] 49139- 2642 Jan, [address] 91593- 7783 Jan, Chronic migraine without aura with status migrainosus, not intractable G43.701 ; Essential hypertension I10 ; Irritable bowel K58.9 ; Primary insomnia F51.01 and Hypokalemia E87.6 [facility] [address] 70136- 1113 Dec, [facility] [address] [place] [address] 81351- 5723 Dec, Pain in right shoulder M25.511 [facility] [id number] [place] [address] 22613- 7896 Dec, Essential hypertension I10 [facility] [id number] [place] [address] 31244- 5146 Dec, [facility] [id number] [place] [address] 67316- 1497 Nov, Essential hypertension I10 [facility] [id number] [place] [address] 61266- 3033 Nov, Pain in right shoulder M25.511 [facility] [id number] [place] [address] 75541- 0270 Nov, Pain in right shoulder M25.511 [facility] [id number] [place] [address] 18674- 7070 October, [facility] [id number] [place] [address] 20261- 1318 October, Pain in right shoulder M25.511 [facility] [id number] [place] [address] 72764- 5640 Sep, Arm pain, right M79.601 [facility] [id number] [place] [address] 40900- 0066 Sep, [facility] [id number] [place] [address] 91194- 2254 Sep, Abnormal glucose R73.09 and Elevated lipids E78.5 [facility] [id number] [place] [address] 56055- 1175 Sep, Abnormal glucose R73.09 and Elevated lipids E78.5 [facility] [id number] [place] [address] 16623- 2121 Aug, [facility] [id number] [place] [address] 54703- 0844 Aug, [facility] [address] 35793- 2243 Aug, [facility] [id number] [place] [address] 63600- 4699 Aug, 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 ; Hypokalemia E87.6 ; Irritable bowel K58.9 ; Essential hypertension I10 ; Pain in right shoulder M25.511 ; Seizure disorder G40.909 and Screening for lipid disorders Z13.220 [facility] [address] 04235- 3349 Jul, Other chronic pain G89.29 and Pain in right shoulder M25.511 [facility] [id number] [place] [address] 61530- 1094 14 Jul, 2016 Biceps muscle strain, right, subsequent encounter S46.111D [facility] [place] [id number] [place] [address] 45070 -6067 Jul, Arm pain, right M79.601 [facility] [id number] [place] [address] 67836- 9521 Jun, [facility] [id number] [place] [address] 15523- 0021 Jun, Acute non-recurrent frontal sinusitis J01.10 [facility] [address] [place] [address] 51635- 2792 May, Generalized abdominal pain R10.84 ; Urinary tract infection without hematuria, site unspecified N39.0 ; Hypokalemia E87.6 ; Essential hypertension I10 ; Screening for lipid disorders Z13.220 ; Seizure R56.9 and Low back pain M54.5 [facility] [id number] [place] [address] 66280- 4158 Apr, [facility] [address] [place] [address] 88587 -6702 Feb, [facility] [id number] [place] [address] 19565- 6109 Jan, [facility] [address] [place] [address] 63508- 4550 Dec, 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 ; Hypokalemia E87.6 ; Irritable bowel K58.9 and Nausea R11.0 [facility] [id number] [place] [address] 06603 -1484 Dec, Generalized abdominal pain R10.84 [facility] [id number] [place] [address] 65584- 8153 Nov, [facility] [place] [id number] [place] [address] 56132 -8225 Aug, Acute bronchitis J20.9 [facility] [address] [place] [address] 59806- 9005 Aug, [facility] [address] [place] [address] 97775- 3759 08 Aug, 2015 Low back pain M54.5 ; Hypokalemia E87.6 ; Chronic migraine without aura with status migrainosus, not intractable G43.701 ; Tremor, hereditary, benign G25.0 ; Irritable bowel K58.9 ; Essential hypertension I10 and Seizure R56.9 [facility] [address] [place] [address] 50695- 2530 Aug, [facility] [id number] [place] [address] 93436- 6465 Jul, [facility] [id number] [place] [address] 15204- 1963 03 Jul, 2015 Low back pain M54.5 ; Hypokalemia E87.6 ; Chronic migraine without aura with status migrainosus, not intractable G43.701 ; Tremor, hereditary, benign G25.0 ; Irritable bowel K58.9 ; Essential hypertension I10 and Seizure R56.9 [facility] [id number] [place] [address] 24404- 2052 20 Jun, 2015 Hypokalemia E87.6 [facility] [address] [place] [address] 71211- 6190 15 Jun, 2015 ADD (attention deficit disorder) without hyperactivity F90.0 ; Generalized anxiety disorder F41.1 and Major depressive disorder, recurrent episode, moderate F33.1 [facility] [address] [place] [address] 62737- 1256 13 Jun, 2015 Low back pain M54.5 ; Hypokalemia E87.6 ; Chronic migraine without aura with status migrainosus, not intractable G43.701 ; Tremor, hereditary, benign G25.0 ; Irritable bowel K58.9 ; Essential hypertension I10 and Seizure R56.9 [facility] [address] [place] [address] 16889- 8134 04 Jun, 2015 [facility] [address] [place] [address] 26942- 4958 31 May, 2015 [facility] [facility] [address] 13554- 9768 30 May, 2015 Low back pain M54.5 ; Hypokalemia E87.6 ; Chronic migraine without aura with status migrainosus, not intractable G43.701 ; Tremor, hereditary, benign G25.0 ; Irritable bowel K58.9 ; Essential hypertension I10 ; Seizure R56.9 and Tinea capitis B35.0 [facility] [address] [place] [address] 18654- 4484 17 May, 2015 Low back pain M54.5 ; Hypokalemia E87.6 ; Chronic migraine without aura with status migrainosus, not intractable G43.701 ; Tremor, hereditary, benign G25.0 ; Irritable bowel K58.9 ; Essential hypertension I10 ; Seizure R56.9 ; Otitis media, left H66.92 and Dysuria 788.1 [facility] [id number] [place] [address] 25007- 3082 14 May, 2015 Tooth pain K08.8 [facility] [address] 87828- 5841 May, [facility] [address] 15412- 0100 May, Low back pain M54.5 ; Hypokalemia E87.6 ; Chronic migraine without aura with status migrainosus, not intractable G43.701 ; Tremor, hereditary, benign G25.0 ; Irritable bowel K58.9 and Essential hypertension I10 [facility] [address] 14889- 3738 18 Apr, 2015 Low back pain M54.5 ; Hypokalemia E87.6 ; Chronic migraine without aura with status migrainosus, not intractable G43.701 ; Tremor, hereditary, benign G25.0 and Irritable bowel K58.9 [facility] [id number] [place] [address] 47519- 7004 Apr, Low back pain M54.5 [facility] [id number] [place] [address] 34943- 6932 Mar, [facility] [address] [place] [address] 53147- 6424 Mar, Irritable bowel syndrome with diarrhea K58.0 [facility] [address] [place] [address] 92833- 9834 Mar, [facility] [id number] [place] [address] 24555- 6075 Feb, [facility] [address] 18017- 5162 08 Feb, 2015 [facility] [address] 21630- 2661 Feb, Irritable bowel syndrome 564.1 ; Lumbago 724.2 and Cervical pain (neck) 723.1 [facility] [address] [address]- 6972 Dec, Major depressive disorder, recurrent episode, moderate 296.32 and Generalized anxiety disorder 300.02 [facility] [id number] [place] [address] 50377- 8475 Nov, [facility] [address] [place] [address] 34898- 2894 Nov, Major depressive disorder, recurrent episode, moderate 296.32 [facility] [address] [place] [address] 687243- 0132 Nov, Constipation 564.00 ; Nausea & vomiting 787.01 and Abdominal pain 789.00 [facility] [id number] [place] [address] 46329- 1463 Nov, [facility] [id number] [place] [address] 44493- 4014 October, [facility] [id number] [place] [address] 58485- 8663 October, [facility] [address] [place] [address] 25789- 3265 October, [facility] [id number] [place] [address] 07767- 4677 October, [facility] [id number] [place] [address] 34844- 1160 Sep, Dysuria 788.1 [facility] [id number] [place] [address] 30846- 9706 Sep, [facility] [id number] [place] [address] [id number]- 2728 Sep, [facility] [id number]- 5414 Sep, [facility] [id number] [place] [address], [place] [address]- 9514 13 Sep, 2014 [facility] [place] [facility] [address] [id number] [place] [address]- 5984 30 Aug, 2014 [facility] [place] [facility] [address] [id number] [place] [address]- 6017 Aug, [facility] [place] [facility] [address] [id number] [place] [address]- 5082 Aug, [facility] [place] [facility] [address] [id number] [place] [address]- 0864 Aug, [facility] [place] [facility] [address] [id number] [place] [address]- 5893 Aug, [facility] [place] [facility] [address] [id number] [place] [address]- 8067 Aug, [facility] [place] [facility] [address] [id number] [place] [address]- 9168 Aug, [facility] [place] [facility] [address] [id number] [place] [address]- 2815 Aug, [facility] [place] [facility] [address] [id number] [place] [address]- 9220 Aug, [facility] [place] [facility] [address] [id number] [place] [address]- 7443 Aug, [facility] [place] [facility] [address] [id number] [place] [address]- 6841 Jun, [facility] [place] [facility] [address] [id number] [place] [address]- 7317 Jun, [facility] [place] [facility] [address] [id number] [place] [address]- 4733 Jun, [facility] [place] [facility] [address] [id number] [place] [address]- 5643 Jun, [facility] [place] [facility] [address] [id number] [place] [address]- 9762 May, [facility] [place] [facility] [address] [id number] [place] [address]- 0222 May, [facility] [place] [facility] [address] [id number] [place] [address]- 7396 May, [facility] [place] [facility] [address] [id number] [place] [address]- 7711 May, [facility] [place] [facility] [address] [id number] [place] [address]- 0482 May, [facility] [place] [facility] [address] [id number] [place] [address]- 0318 May, [facility] [place] [facility] [address] [id number] [place] [address]- 3148 May, [facility] [place] [facility] [address] [id number] [place] [address]- 9071 May, [facility] [place] [facility] [address] [id number] [place] [address]- 3911 Mar, [facility] [place] [facility] [address] [id number] [place] [address]- 5849 Mar, [facility] [place] [facility] [address] [id number] [place] [address]- 8987 Mar, [facility] [place] [facility] [address] [id number] [place] [address]- 8685 Mar, [facility] [place] [facility] [address] [id number] [place] [address]- 8124 Mar, [facility] [place] [facility] [address] [id number] [place] [address]- 1240 Mar, [facility] [place] [facility] [address] [id number] [place] [address]- 4800 Mar, [facility] [place] [facility] [address] [id number] [place] [address]- 5028 Mar, [facility] [place] [facility] [address] [id number] [place] [address]- 5434 Mar, [facility] [place] [facility] [address] [id number] [place] [address]- 2237 Mar, [facility] [place] [facility] [address] [id number] [place] [address]- 2468 Mar, [facility] [place] [facility] [address] [id number] [place] [address]- 2640 Mar, [facility] [place] [facility] [address] [id number] [place] [address]- 6892 Feb, [facility] [place] [facility] [address] [id number] [place] [address]- 3355 Feb, [facility] [place] [facility] [address] [id number] [place] [address]- 2066 Feb, [facility] [place] [facility] [address] [id number] [place] [address]- 4870 Feb, [facility] [place] [facility] [address] [id number] [place] [address]- 5793 Feb, [facility] [place] [facility] [address] [id number] [place] [address]- 6484 Feb, [facility] [place] [facility] [address] [id number] [place] [address]- 7450 Jan, [facility] [place] [facility] [address] [id number] [place] [address]- 5266 Jan, [facility] [place] [facility] [address] [id number] [place] [address]- 5788 Jan, [facility] [place] [facility] [address] [id number] [place] [address]- 3408 Jan, [facility] [place] [facility] [address] [id number] [place] [address]- 5658 Jan, [facility] [place] [facility] [address] [id number] [place] [address]- 6752 Jan, [facility] [place] [facility] [address] [id number] [place] [address]- 9044 Jan, [facility] [address] [id number] [place] [address]- 5281 Jan, [facility] [place] [facility] [address] [id number] [place] [address]- 5541 Dec, [facility] [place] [facility] [address] [id number] [place] [address]- 1746 Dec, [facility] [place] [facility] [address] [id number] [place] [address]- 7931 Dec, [facility] [place] [facility] [address] [id number] [place] [address]- 1508 Dec, [facility] [place] [facility] [address] [id number] [place] [address]- 7184 Dec, [facility] [place] [facility] [address] [id number] [place] [address]- 8002 Dec, [facility] [place] [facility] [address] [id number] [place] [address] Dec, [facility] [place] [facility] [address] [id number] [place] [address] Dec, [facility] [place] [facility] [address] [id number] [place] [address] October, [facility] [place] [facility] [address] [id number] [place] [address] October, [facility] [place] [facility] [address] [id number] [place] [address] Sep, [facility] [place] [facility] [address] [id number] [place] [address] Sep, [facility] [place] [facility] [address] [id number] [place] [address] Sep, [facility] [place] [facility] [address] [id number] [place] [address] Sep, [facility] [place] [facility] [address] [id number] [place] [address] Sep, [facility] [place] [facility] [address] [id number] [place] [address] Sep, [facility] [place] [facility] [address] [id number] [place] [address] Sep, [facility] [place] [facility] [address] [id number] [place] [address] Sep, [facility] [place] [facility] [address] [id number] [place] [address] Sep, [facility] [place] [facility] [address] [id number] [place] [address] Sep, [facility] [place] [facility] [address] [id number] [place] [address] Sep, [facility] [place] [facility] [address] [id number] [place] [address] Sep, [facility] [place] [facility] [address] [id number] [place] [address] Aug, [facility] [place] [facility] [address] [id number] [place] [address] Aug, [facility] [place] [facility] [address] [id number] [place] [address] Aug, [facility] [place] [facility] [address] [id number] [place] [address] Jun, [facility] [place] [facility] [address] [id number] [place] [address] Jun, [facility] [place] [facility] [address] [id number] [place] [address] Jun, [facility] [place] [facility] [address] [id number] [place] [address] Jun, [facility] [place] [facility] [address] [id number] [place] [address] Jun, [facility] [facility] [address] [id number] [place] [address] Jun, [facility] [place] [facility] [address] [id number] [place] [address] Jun, [facility] [place] [facility] [address] [id number] [place] [address] Jun, [facility] [place] [facility] [address] [id number] [place] [address] Jun, [facility] [place] [facility] [address] [id number] [place] [address] Jun, [facility] [place] [facility] [address] [id number] [place] [address] May, [facility] [place] [facility] [address] [id number] [place] [address] May, [facility] [place] [facility] [address] [id number] [place] [address] May, [facility] [place] [facility] [address] [id number] [place] [address] May, [facility] [place] [facility] [address] [id number] [place] [address] Apr, [facility] [place] [facility] [address] [id number] [place] [address] Apr, [facility] [place] [facility] [address] [id number] [place] [address] Apr, [facility] [place] [facility] [address] [id number] [place] [address] Apr, [facility] [place] [facility] [address] [id number] [place] [address] Apr, [facility] [place] [facility] [address] [id number] [place] [address] Apr, [facility] [place] [facility] [address] [id number] [place] [address] Apr, [facility] [place] [facility] [address] [id number] [place] [address] Apr, [facility] [place] [facility] [address] [id number] [place] [address] Mar, [facility] [place] [facility] [address] [id number] [place] [address] Mar, [facility] [place] [facility] [address] [id number] [place] [address] Mar, [facility] [place] [facility] [address] [id number] [place] [address] Mar, [facility] [place] [facility] [address] [id number] [place] [address] Mar, [facility] [place] [facility] [address] [id number] [place] [address] Feb, [facility] [place] [facility] [address] [id number] [place] [address] 8990 Feb, [facility] [place] [facility] [address] [id number] [place] [address] 4947 Feb, [facility] [place] [facility] [address] [id number] [place] [address]796 Feb, [facility] [place] [facility] [address] [id number] [place] [address] 12[address] Feb, [facility] [place] [facility] [address] [id number] [place] [address] Jan, [facility] [place] [facility] [address] [id number] [place] [address] 4096 Jan, [facility] [place] [facility] [address] [id number] [place] [address] 2546 Nov, [facility] [place] [facility] [address] [id number] [place] [address]996 Nov, [facility] [address] [id number] [place] [address] Nov, [facility] [place] [facility] [address] [id number] [place] [address] 3055 Nov, [facility] [place] [facility] [address] [id number] [place] [address] 2670 October, [facility] [place] [facility] [address] [id number] [place] [address]- [address] Sep, [facility] [place] [facility] [address] [id number] [place] [address] 4608 Aug, [facility] [place] [facility] [address] [id number] [place] [address]- 2409 Aug, [facility] [place] [facility] [address] [id number] [place] [address] 4705 Aug, [facility] [place] [facility] [address] [id number] [place] [address] Aug, [facility] [address] [id number] [place] [address] 137[address] Jul, [facility] [place] [facility] [address] [id number] [place] [address] 2016 Jun, [facility] [place] [facility] [address] [id number] [place] [address] 95[address] Jun, [facility] [place] [facility] [address] [id number] [place] [address] May, [facility] [place] [facility] [address] [id number] [place] [address] 87[address] May, [facility] [place] [facility] [address] [id number] [place] [id number] Mar, [facility] [place] [facility] [address] [id number] [place] [address] 1790 Mar, [facility] [place] [facility] [address] [id number] [place] [address] 9167 24 Mar, 2011 [facility] [place] [facility] [address] [id number] [place] [address] 9075 24 Mar, 2011 [facility] [place] [facility] [address] [id number] [place] [address] 4078 Mar, 2011 [facility] [place] [facility] [address] [id number] [place] [address]- 2583 23 Mar, 2011 [facility] [place] [facility] [address] [id number] [place] [address]- 6168 23 Mar, 2011 [facility] [place] [facility] [address] [id number] [place] [address]- 5063 23 Mar, 2011 [facility] [place] [facility] [address] [id number] [place] [address]- 1463 22 Mar, 2011 [facility] [place] [facility] [address] [id number] [place] [address] 4645 20 Mar, 2011 [facility] [place] [facility] [address] [id number] [place] [address]- 4295 20 Mar, 2011 [facility] [place] [facility] [address] [id number] [place] [address]- 5238 17 Mar, 2011 [facility] [place] [facility] [address] [id number] [place] [address]- 7847 17 Mar, 2011 [facility] [place] [facility] [address] [id number] [place] [address]- 8362 15 Mar, 2011 [facility] [place] [facility] [address] [id number] [place] [address]- 7686 15 Mar, 2011 [facility] [place] [facility] [address] [id number] [place] [address]- 8905 15 Mar, 2011 [facility] [place] [facility] [address] [id number] [place] [address]- 1323 15 Mar, 2011 [facility] [place] [facility] [address] [id number] [place] [address]- 2065 11 Mar, 2011 [facility] [place] [facility] [address] [id number] [place] [address]- 3775 11 Mar, 2012 [facility] [place] [facility] [address] [id number] [place] [address]- 8606 08 Mar, 2012 [facility] [place] [facility] [address] [id number] [place] [address] 2546 08 Mar, 2012 [facility] [place] [facility] [address] [id number] [place] [address]- 5086 03 Mar, 2012 [facility] [place] [facility] [address] [id number] [place] [address]- 1837 Mar, [facility] [place] [facility] [address] [id number] [place] [address]- 5482 19 Feb, 2012 [facility] [place] [facility] [address] [id number] [place] [address]- 0598 18 Feb, 2012 [facility] [place] [facility] [address] [id number] [place] [address]- 6937 17 Feb, 2012 [facility] [place] [facility] [address] [id number] [place] [address] 2543 14 Feb, 2012 [facility] [place] [facility] [address] [id number] [place] [address] 2544 14 Feb, 2012 [facility] [place] [facility] [address] [id number] [place] [address] 2547 12 Feb, 2012 [facility] [place] [facility] [address] [id number] [place] [address]- 2542 10 Feb, 2012 [facility] [place] [facility] [address] [id number] [place] [address] 2543 31 Jan, 2012 [facility] [place] [facility] [address] [id number] [place] [address] 2546 30 Jan, 2012 [facility] [place] [facility] [address] [id number] [place] [address] 2540 22 Jan, 2012 [facility] [place] [facility] [address] [id number] [place] [address]- 6167 Jan, [facility] [place] [facility] [address] [id number] [place] [address]- 7892 Jan, [facility] [place] [facility] [address] [id number] [place] [address]- 9406 Jan, [facility] [place] [facility] [address] [id number] [place] [address]- 2966 Jan, [facility] [place] [facility] [address] [id number] [place] [address]- 7306 Jan, [facility] [place] [facility] [address] [id number] [place] [address]- 0975 Jan, [facility] [place] [facility] [address] [id number] [place] [address]- 8167 Jan, [facility] [place] [facility] [address] [id number] [place] [address]- 8970 Dec, [facility] [place] [facility] [address] [id number] [place] [address]- 3716 24 Dec, 2011 [facility] [place] [facility] [address] [id number] [place] [address]- 3204 Dec, [facility] [place] [facility] [address] [id number] [place] [address]- 6937 Dec, [facility] [place] [facility] [address] [id number] [place] [address]- 5752 18 Dec, 2011 [facility] [place] [facility] [address] [id number] [place] [address]- 5904 Dec, [facility] [place] [facility] [address] [id number] [place] [address]- 0121 16 Dec, 2011 [facility] [place] [facility] [address] [id number] [place] [address]- 3719 14 Dec, 2011 [facility] [place] [facility] [address] [id number] [place] [address]- 7583 Dec, [facility] [place] [facility] [id number] [address] 8[address] Dec, [facility] [id number] [address]- 9423 Dec, [facility] [id number] [address]- 2279 Nov, [facility] [id number] [place] [address]- [address] Nov, [facility] [id number] [place] [address]- 6563 Nov, [facility] [id number] [place] [address]- 2122 Nov, [facility] [id number] [place] [address]- 6226 Nov, [facility] [id number] [place] [address] 00181- 1670 Nov, [facility] [id number] [place] [address]- 5184 Nov, [facility] [id number] [place] [address]- 5912 Nov, [facility] [id number] [address]- 9031 Nov, [facility] [id number] [address]- 0059 Nov, [facility] [id number] [address]- 2118 October, IMMUNIZATIONS No Known Immunizations SOCIAL HISTORY Never Assessed [place] [place] VITAL SIGNS MEDICATIONS Unknown [...]
--- OUTSIDE RECORDS SUMMARY | 2018-09-09 13:49 | XMS REPORT ---
Author Author Migration, Doctor Organization [facility] Address Unknown Phone Unavailable Care Team Providers Care Wheat Inspector Name Role Phone Migration, Doctor Unavailable Unavailable PROBLEMS Type Condition ICD9-CM Code FGH98-UK Code Onset Dates Condition Status SNOMED Code Problem Elevated liver enzymes R74.8 Active 953471510 Problem Abnormal glucose R73.09 Active 989028973 Problem Hyperlipidemia LDL goal <100 E78.5 Active 94118866 Problem Hypokalemia E87.6 Active 62698643 Problem Major depressive disorder, recurrent episode, moderate F33.1 Active 043854592 Problem Tremor, hereditary, benign G25.0 Active 927789495 Problem Chronic migraine without aura with status migrainosus, not intractable G43.701 Active 682759083 Problem 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 Active 29801295 Problem Other chronic pain G89.29 Active 27941102 Problem Seizure disorder G40.909 Active 447653760 Problem Other chronic pain G89.29 Active 94697513 Problem Essential hypertension I10 Active 10408807 Problem Reflux gastritis K29.60 Active 63341100 Problem Irritable bowel K58.9 Active 50905467 Problem Primary insomnia F51.01 Active 6633001 Problem Moderate persistent asthma without complication J45.40 Active 476392880 Problem Moderate persistent asthma with exacerbation J45.41 Active 846491784 Problem Intractable chronic migraine without aura and with status migrainosus G43.711 Active 204804560 ALLERGIES No Information ENCOUNTERS Encounter Location Date Diagnosis [facility] [address], [place] [address] Sep, [facility] [id number] [place] [address] 25844 -6128 Jun, Reflux gastritis K29.60 [facility] [address], [place] [address] Jun, [facility] [address] [place] [address] 52651- 5846 May, [facility] [id number] [address] May, [facility] [id number] [place] [address] 57804- 4526 Apr, Bowel habit changes R19.4 and Acute cystitis without hematuria N30.00 [facility] [id number] [place] [address] 40490- 8216 Apr, Pain in right shoulder M25.511 [facility] [id number] [place] [address] 16355- 3206 Apr, [facility] [id number] [place] [address] 36115- 7006 Mar, [facility] [id number] [place] [address] 02734- 0426 Mar, [facility] [id number] [place] [address] 73020- 4134 Mar, [facility] [id number], [place] [address] 1766 Mar, [facility] [id number] [address] 9696 Feb, [facility] [address], [place] [address]- 7466 Feb, [facility] [id number] [place] [address] 73742 2546 Feb, [facility] [address], [place] [address]- 4566 Jan, [facility] [id number] [place] [address] 90921- 9516 Dec, [facility] [address], [place] [address] 3326 Dec, Other chronic pain G89.29 ; Pain in right shoulder M25.511 and Liver enzyme elevation R74.8 [facility] [id number] [place] [address] 11195- 2043 Nov, Other chronic pain G89.29 and Pain in right shoulder M25.511 [facility] [id number] [place] [address] 91674- 8241 October, [facility] [address] 18710 -9635 October, Right shoulder pain, unspecified chronicity M25.511 [facility] [id number] [place] [address] 36378- 7865 Aug, Elevated liver enzymes R74.8 and Hyperlipidemia LDL goal < 100 E78.5 [facility] [id number] [place] [address] 31508- 9307 Aug, [facility] [id number] [place] [address] 94699- 9185 Jul, [facility] [id number] [place] [address] 59188- 2181 Jul, Intractable chronic migraine without aura and with status migrainosus G43.711 ; Fever, unspecified fever cause R50.9 and Elevated liver enzymes R74.8 [facility] [id number] [place] [address] 98706- 7759 Jun, Difficulty urinating R39.198 and Moderate persistent asthma with exacerbation J45.41 [facility] [id number] [place] [address] 81318- 8652 Jun, [facility] [id number] [place] [address] 96867- 3194 Jun, Moderate persistent asthma with exacerbation J45.41 [facility] [id number] [place] [address] 93967- 6317 May, Elevated liver enzymes R74.8 and Hyperlipidemia LDL goal < 100 E78.5 [facility] [place] [address] 68935- 1514 May, Elevated lipids E78.5 [facility] [place] [address] 77678- 0886 Apr, Elevated liver enzymes R74.8 [facility] [address] 07755- 2595 Apr, Elevated liver enzymes R74.8 [facility] [place] [address] 27803- 4765 Apr, Superior glenoid labrum lesion of right shoulder, subsequent encounter S43.431D [facility] [place] [address] 98354- 5917 Apr, Hypokalemia E87.6 ; Major depressive disorder, recurrent episode, moderate F33.1 ; Other abnormalities of breathing R06.89 and Dyspnea, unspecified R06.00 [facility] [address] 15843 -1485 Mar, Moderate persistent asthma without complication J45.40 [facility] [address] 15820- 5744 Mar, Impingement syndrome of right shoulder M75.41 [facility] [place] [address] 65054- 6454 Jan, [facility] [address] 10151- 7731 Jan, Chronic migraine without aura with status migrainosus, not intractable G43.701 ; Essential hypertension I10 ; Irritable bowel K58.9 ; Primary insomnia F51.01 and Hypokalemia E87.6 [facility] [place] [address] 28704- 7489 Dec, [facility] [address] 79142- 3372 Dec, Pain in right shoulder M25.511 [facility] [address], [place] [address] 9040 Dec, Essential hypertension I10 [facility] [id number] [place] [address] 90849- 5116 Dec, [facility] [id number] [place] [address] 28049- 3756 30 Nov, 2016 Essential hypertension I10 [facility] [id number] [place] [address] 01060- 8690 14 Nov, 2016 Pain in right shoulder M25.511 [facility] [id number] [place] [address] 17259- 4666 13 Nov, 2016 Pain in right shoulder M25.511 [facility] [id number] [place] [address] 60840- 4628 October, [facility] [id number] [place] [address] 04871- 8060 October, Pain in right shoulder M25.511 [facility] [id number] [place] [address] 50188- 6859 Sep, Arm pain, right M79.601 [facility] [address] [place] [address] 70200- 4105 Sep, [facility] [id number] [place] [address] 48991- 6891 Sep, Abnormal glucose R73.09 and Elevated lipids E78.5 [facility] [address], [place] [address]- 6346 Sep, Abnormal glucose R73.09 and Elevated lipids E78.5 [facility] [id number] [place] [address] 59327- 0077 Aug, [facility] [address], [place] [address]- 8518 Aug, [facility] [id number] [place] [address] 77049- 3945 Aug, [facility] [id number] [place] [address] 95562- 7827 Aug, 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 ; Hypokalemia E87.6 ; Irritable bowel K58.9 ; Essential hypertension I10 ; Pain in right shoulder M25.511 ; Seizure disorder G40.909 and Screening for lipid disorders Z13.220 [place] [address] 16932- 3813 Jul, Other chronic pain G89.29 and Pain in right shoulder M25.511 [facility] [place] [address] 59514- 3238 14 Jul, 2016 Biceps muscle strain, right, subsequent encounter S46.111D [facility] [place] [address] 40578 -0913 Jul, Arm pain, right M79.601 [place] [address] 30594- 1067 Jun, [facility] [place] [address] 15160- 4799 Jun, Acute non-recurrent frontal sinusitis J01.10 [facility] [id number] [place] [address] 85446- 9775 May, Generalized abdominal pain R10.84 ; Urinary tract infection without hematuria, site unspecified N39.0 ; Hypokalemia E87.6 ; Essential hypertension I10 ; Screening for lipid disorders Z13.220 ; Seizure R56.9 and Low back pain M54.5 [facility] [id number] [place] [address] 53471- 8658 Apr, [facility] [id number] [place] [address] 27818 -1940 Feb, [place] [address] 10826- 6244 Jan, [facility] [place] [id number] [place] [address] 39807- 2127 Dec, 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 ; Hypokalemia E87.6 ; Irritable bowel K58.9 and Nausea R11.0 [facility] [id number] [place] [address] 10242 -6827 Dec, Generalized abdominal pain R10.84 [place] [address] 29176- 2700 Nov, [facility] [address] 07662 -7452 Aug, Acute bronchitis J20.9 [facility] [id number] [place] [address] 90229- 1732 Aug, [place] [address] 38237- 7763 Aug, Low back pain M54.5 ; Hypokalemia E87.6 ; Chronic migraine without aura with status migrainosus, not intractable G43.701 ; Tremor, hereditary, benign G25.0 ; Irritable bowel K58.9 ; Essential hypertension I10 and Seizure R56.9 [facility] [place] [id number] [place] [address] 58445- 7074 Aug, [facility] [id number] [place] [address] 42871- 5418 Jul, [facility] [id number] [place] [address] 18419- 8072 03 Jul, 2015 Low back pain M54.5 ; Hypokalemia E87.6 ; Chronic migraine without aura with status migrainosus, not intractable G43.701 ; Tremor, hereditary, benign G25.0 ; Irritable bowel K58.9 ; Essential hypertension I10 and Seizure R56.9 [facility] [id number] [place] [address] 47837- 5615 Jun, Hypokalemia E87.6 [facility] [id number] [place] [address] 08664- 4796 15 Jun, 2015 ADD (attention deficit disorder) without hyperactivity F90.0 ; Generalized anxiety disorder F41.1 and Major depressive disorder, recurrent episode, moderate F33.1 [facility] [id number] [place] [address] 16274- 8844 13 Jun, 2015 Low back pain M54.5 ; Hypokalemia E87.6 ; Chronic migraine without aura with status migrainosus, not intractable G43.701 ; Tremor, hereditary, benign G25.0 ; Irritable bowel K58.9 ; Essential hypertension I10 and Seizure R56.9 [place] [address] 98292- 2232 Jun, [place] [address] 55785- 6742 May, [place] [address] 62836- 4279 30 May, 2015 Low back pain M54.5 ; Hypokalemia E87.6 ; Chronic migraine without aura with status migrainosus, not intractable G43.701 ; Tremor, hereditary, benign G25.0 ; Irritable bowel K58.9 ; Essential hypertension I10 ; Seizure R56.9 and Tinea capitis B35.0 [facility] [place] [id number] [place] [address] 16140- 6929 17 May, 2015 Low back pain M54.5 ; Hypokalemia E87.6 ; Chronic migraine without aura with status migrainosus, not intractable G43.701 ; Tremor, hereditary, benign G25.0 ; Irritable bowel K58.9 ; Essential hypertension I10 ; Seizure R56.9 ; Otitis media, left H66.92 and Dysuria 788.1 [facility] [place] [id number] [place] [address] 39087- 7584 14 May, 2015 Tooth pain K08.8 [place] [address] 05258- 3855 May, [facility] [id number] [place] [address] 54996- 0144 May, Low back pain M54.5 ; Hypokalemia E87.6 ; Chronic migraine without aura with status migrainosus, not intractable G43.701 ; Tremor, hereditary, benign G25.0 ; Irritable bowel K58.9 and Essential hypertension I10 [place] [id number] [place] [address] 49394- 9759 Apr, Low back pain M54.5 ; Hypokalemia E87.6 ; Chronic migraine without aura with status migrainosus, not intractable G43.701 ; Tremor, hereditary, benign G25.0 and Irritable bowel K58.9 [place] [id number] [place] [address] 50561- 4061 Apr, Low back pain M54.5 [facility] [place] [id number] [place] [address] 68313- 1333 Mar, [facility] [id number] [place] [address] 32915- 9823 Mar, Irritable bowel syndrome with diarrhea K58.0 [facility] [id number] [place] [address] 38311- 1262 Mar, [facility] [id number] [place] [address] 11082- 0586 Feb, [facility] [id number] [place] [address] 72177- 3492 Feb, [facility] [id number] [place] [address] 22726- 1987 Feb, Irritable bowel syndrome 564.1 ; Lumbago 724.2 and Cervical pain (neck) 723.1 [facility] [id number] [place] [address] 91432- 5830 Dec, Major depressive disorder, recurrent episode, moderate 296.32 and Generalized anxiety disorder 300.02 [facility] [address], [place] [address]- 9206 Nov, [facility] [id number] [place] [address] 66764- 8822 Nov, Major depressive disorder, recurrent episode, moderate 296.32 [facility] [id number] [place] [address] 87128- 0838 Nov, Constipation 564.00 ; Nausea & vomiting 787.01 and Abdominal pain 789.00 [facility] [id number] [place] [address] 39818- 0445 Nov, [facility] [id number] [place] [address] 19194- 0611 October, [facility] [id number] [place] [address] 91413- 3402 October, [facility] [id number] [place] [address] 72935- 6293 October, [facility] [id number] [place] [address] 90619- 6910 October, [facility] [id number] [place] [address] 03304- 3212 Sep, Dysuria 788.1 [facility] [id number] [place] [address] 40319- 2383 Sep, [facility] [id number] [place] [address] 66926- 3413 Sep, [facility] [id number] [place] [address] 04203- 9951 Sep, [facility] [id number] [place] [address] 38457- 1373 Sep, [facility] [id number] [place] [address] 08912- 1796 Aug, [facility] [id number] [place] [address]- 9706 30 Aug, 2014 [facility] [address] [id number] [place] [address]- 7754 Aug, [facility] [place] [facility] [address] [id number] [place] [address]- 8356 Aug, [facility] [address] [id number] [place] [address]- 0566 Aug, [facility] [place] [facility] [address] [id number] [place] [address]- 3566 Aug, [facility] [place] [facility] [address] [id number] [place] [address]- 6509 Aug, [facility] [place] [facility] [address] [id number] [place] [address]- 8736 Aug, [facility] [place] [facility] [address] [id number] [place] [address]- 6414 Aug, [facility] [address] [id number] [place] [address]- 9714 Aug, [facility] [place] [facility] [address] [id number] [place] [address]- 6923 Jun, [facility] [address] [id number] [place] [address]- 1358 Jun, [facility] [place] [facility] [address] [id number] [place] [address]- 4856 Jun, [facility] [place] [facility] [address] [id number] [place] [address]- 2336 Jun, [facility] [place] [facility] [address] [id number] [place] [address]- 8820 May, [facility] [place] [facility] [address] [id number] [place] [address]- 6516 May, [facility] [place] [facility] [address] [id number] [place] [address]- 7518 May, [facility] [place] [facility] [address] [id number] [place] 5094 May, [facility] [place] [facility] [address] [id number] [place] [address]- 8534 May, [facility] [place] [facility] [address] [id number] [place] [address]- 1190 May, [facility] [place] [facility] [address] [id number] [place] [address]- 2093 May, [facility] [place] [facility] [address] [id number] [place] [address]- 2882 May, [facility] [place] [facility] [address] [id number] [place] 2828 Mar, [facility] [place] [facility] [address] [id number] [place] [address]- 4762 Mar, [facility] [place] [facility] [address] [id number] [place] [address]- 9420 Mar, [facility] [place] [facility] [address] [id number] [place] [address]- 3719 Mar, [facility] [place] [facility] [address] [id number] [place] [address]- 5646 Mar, [facility] [place] [facility] [address] [id number] [place] [address]- 3099 Mar, [facility] [place] [facility] [address] [id number], [place] [address]- 2440 Mar, [facility] [place] [facility] [address] [id number] [place] [address]- 6091 Mar, [facility] [place] [facility] [address] [id number] [place] [address]- 1716 Mar, [facility] [place] [facility] [address] [id number] [place] [address]- 9164 Mar, [facility] [place] [facility] [address] [id number] [place] [address]- 6990 Mar, [facility] [place] [facility] [address] [id number] [place] [address]- 0228 Mar, [facility] [place] [facility] [address] [id number] [place] [address]- 9117 Feb, [facility] [place] [facility] [address] [id number] [place] [address]- 3601 Feb, [facility] [place] [facility] [address] [id number] [place] [address]- 5439 Feb, [facility] [place] [facility] [address] [id number] [place] [address]- 7503 Feb, [facility] [place] [facility] [address] [id number] [place] [address]- 8462 Feb, [facility] [place] [facility] [address] [id number] [place] [address]- 4086 Feb, [facility] [place] [facility] [address] [id number] [place] [address]- 8687 Jan, [facility] [place] [facility] [address] [id number] [place] [address]- 7775 Jan, [facility] [place] [facility] [address] [id number] [place] [address]- 8009 Jan, [facility] [place] [facility] [address] [id number] [place] [address]- 5636 Jan, [facility] [place] [facility] [address] [id number] [place] [address]- 6547 Jan, [facility] [place] [facility] [address] [id number] [place] [address]- 8046 Jan, [facility] [place] [facility] [address] [id number] [place] [address]- 4213 Jan, [facility] [place] [facility] [address] [id number] [place] [address]- 1528 Jan, [facility] [place] [facility] [address] [id number] [place] [address]- 5057 Dec, [facility] [place] [facility] [address] [id number] [place] [address]- 5214 Dec, [facility] [place] [facility] [address] [id number] [place] [address]- 1006 Dec, [facility] [place] [facility] [address] [id number] [place] [address]- 7166 Dec, [facility] [place] [facility] [address] [id number] [place] [address]- 7204 Dec, [facility] [place] [facility] [address] [id number] [place] [address] Dec, [facility] [place] [facility] [address] [id number] [place] [address] Dec, [facility] [place] [facility] [address] [id number] [place] [address] Dec, [facility] [place] [facility] [address] [id number] [place] [address] October, [facility] [place] [facility] [address] [id number] [place] [address] October, [facility] [place] [facility] [address] [id number] [place] [address] Sep, [facility] [place] [facility] [address] [id number] [place] [address] Sep, [facility] [place] [facility] [address] [id number] [place] [address] Sep, [facility] [place] [facility] [address] [id number] [place] [address] Sep, [facility] [place] [facility] [address] [id number] [place] [address] Sep, [facility] [place] [facility] [address] [id number] [place] [address] Sep, [facility] [place] [facility] [address] [id number] [place] [address] Sep, [facility] [place] [facility] [address] [id number] [place] [address] Sep, [facility] [place] [facility] [address] [id number] [place] [address] Sep, [facility] [place] [facility] [address] [id number] [place] [address] Sep, [facility] [place] [facility] [address] [id number] [place] [address] Sep, [facility] [place] [facility] [address] [id number] [place] [address] Sep, [facility] [place] [facility] [address] [id number] [place] [address] Aug, [facility] [place] [facility] [address] [id number] [place] [address] Aug, [facility] [place] [facility] [address] [id number] [place] [address] Aug, [facility] [place] [facility] [address] [id number] [place] [address] Jun, [facility] [place] [facility] [address] [id number] [place] [address] Jun, [facility] [place] [facility] [address] [id number], [place] [address] Jun, [facility] [place] [facility] [address] [id number] [place] [address] Jun, [facility] [place] [facility] [address] [id number] [place] [address] Jun, [facility] [place] [facility] [address] [id number] [place] [address] Jun, [facility] [place] [facility] [address] [id number] [place] [address] Jun, [facility] [address] [id number] [place] [address] Jun, [facility] [place] [facility] [address] [id number] [place] [address] Jun, [facility] [address] [id number] [place] [address] Jun, [facility] [place] [facility] [address] [id number] [place] [address] May, [facility] [address] [id number] [place] [address] May, [facility] [place] [facility] [address] [id number] [place] [address] May, [facility] [address] [id number] [place] [address] May, [facility] [address] [id number] [place] [address] Apr, [facility] [place] [facility] [address] [id number] [place] [address] Apr, [facility] [address] [id number] [place] [address] Apr, [facility] [place] [facility] [address] [id number] [place] [address] Apr, [facility] [place] [facility] [address] [id number] [place] [address] Apr, [facility] [place] [facility] [address] [id number] [place] [address] Apr, [facility] [place] [facility] [address] [id number] [place] [address] Apr, [facility] [place] [facility] [address] [id number] [place] [address] Apr, [facility] [place] [facility] [address] [id number] [place] [address] Mar, [facility] [place] [facility] [address] [id number] [place] [address] Mar, [facility] [place] [facility] [address] [id number] [place] [address]240 Mar, [facility] [place] [facility] [address] [id number] [place] [address] Mar, [facility] [place] [facility] [address] [id number] [place] [address] Mar, [facility] [place] [facility] [address] [id number] [place] [address] Feb, [facility] [place] [facility] [address] [id number] [place] [address] 260[address] Feb, [facility] [place] [facility] [address] [id number] [place] [address] 36[address] Feb, [facility] [place] [facility] [address] [id number] [place] [address] Feb, [facility] [place] [facility] [address] [id number] [place] [address]326 Feb, [facility] [place] [facility] [address] [id number] [place] [address] Jan, [facility] [place] [facility] [address] [id number] [place] [address] 97[address] Jan, [facility] [place] [facility] [address] [id number] [place] [address]- [address]285 Nov, [facility] [place] [facility] [address] [id number] [place] [address] Nov, [facility] [place] [facility] [address] [id number] [place] [address]150 Nov, [facility] [place] [facility] [address] [id number], [place] [address]68 Nov, [facility] [place] [facility] [address] [id number] [place] [address] October, [facility] [place] [facility] [address] [id number] [place] [address] Sep, [facility] [place] [facility] [address] [id number] [place] [address] Aug, [facility] [place] [facility] [address] [id number] [place] [address] 46[address] Aug, [facility] [place] [facility] [address] [id number] [place] [address] 2776 Aug, [facility] [place] [facility] [address] [id number] [place] [address] 9735 Aug, [facility] [place] [facility] [address] [id number] [place] [address] Jul, [facility] [place] [facility] [address] [id number] [place] [address] Jun, [facility] [place] [facility] [address] [id number] [place] [address] Jun, [facility] [place] [facility] [address] [id number] [place] [address] May, [facility] [place] [facility] [address] [id number], [place] [address] May, [facility] [place] [facility] [address] [id number][place] [id number] Mar, [facility] [place] [facility] [address] [id number] [place] [address] Mar, [facility] [place] [facility] [address] [id number] [place] [address]16 Mar, [facility] [place] [facility] [address] [id number] [place] [address] Mar, [facility] [place] [facility] [address] [id number] [place] [address]- 1288 23 Mar, 2011 [facility] [place] [facility] [address] [id number] [place] [address]- 7654 23 Mar, 2011 [facility] [place] [facility] [address] [id number] [place] [address] 8451 23 Mar, 2011 [facility] [place] [facility] [address] [id number] [place] [address]- 7330 23 Mar, 2011 [facility] [place] [facility] [address] [id number] [place] [address]- 6661 22 Mar, 2011 [facility] [place] [facility] [address] [id number] [place] [address]- 2916 Mar, 2011 [facility] [place] [facility] [address] [id number] [place] [address]- 5649 20 Mar, 2011 [facility] [place] [facility] [address] [id number] [place] [address]- 0947 17 Mar, 2011 [facility] [place] [facility] [address] [id number] [place] [address]- 0278 17 Mar, 2011 [facility] [place] [facility] [address] [id number] [place] [address]- 7197 15 Mar, 2012 [facility] [place] [facility] [address] [id number] [place] [address]- 0288 15 Mar, 2011 [facility] [place] [facility] [address] [id number] [place] [address]- 7506 15 Mar, 2011 [facility] [place] [facility] [address] [id number] [place] [address]- 1474 15 Mar, 2012 [facility] [place] [facility] [address] [id number] [place] [address] 11 Mar, 2011 [facility] [place] [facility] [address] [id number] [place] [address]- 5024 11 Mar, 2012 [facility] [place] [facility] [address] [id number] [place] [address]- 4808 08 Mar, 2012 [facility] [place] [facility] [address] [id number] [place] [address]- 5546 08 Mar, 2012 [facility] [place] [facility] [address] [id number] [place] [address]- 8920 03 Mar, 2012 [facility] [place] [facility] [address] [id number] [place] [address]- 8596 Mar, [facility] [place] [facility] [address] [id number] [place] [address]- 6768 19 Feb, 2012 [facility] [place] [facility] [address] [id number] [place] [address]- 6999 18 Feb, 2012 [facility] [place] [facility] [address] [id number] [place] [address]- 9174 17 Feb, 2012 [facility] [place] [facility] [address] [id number] [place] [address]- 8154 14 Feb, 2012 [facility] [place] [facility] [address] [id number] [place] [address]- 0482 14 Feb, 2012 [facility] [place] [facility] [address] [id number] [place] [address]- 2508 12 Feb, 2012 [facility] [place] [facility] [address] [id number] [place] [address]- 9613 10 Feb, 2012 [facility] [place] [facility] [address] [id number] [place] [address]- 3355 31 Jan, 2012 [facility] [place] [facility] [address] [id number], [place] [address] 1241 30 Jan, 2012 [facility] [place] [facility] [address] [id number] [place] [address]- 8160 22 Jan, 2012 [facility] [place] [facility] [address] [id number] [place] [address]- 3886 20 Jan, 2012 [facility] [place] [facility] [address] [id number] [place] [address]- 8898 17 Jan, 2012 [facility] [place] [facility] [address] [id number], [place] [address]- 6967 17 Jan, 2012 [facility] [place] [facility] [address] [id number] [place] [address]- 3060 17 Jan, 2012 [facility] [place] [facility] [address] [id number] [place] [address]- 6796 16 Jan, 2012 [facility] [place] [facility] [address] [id number] [place] [address]- 5332 Jan, [facility] [place] [facility] [address] [id number] [place] [address]- 7299 Jan, [facility] [place] [facility] [address] [id number] [place] [address]- 7189 26 Dec, 2011 [facility] [place] [facility] [address] [id number] [place] [address]- 5598 24 Dec, 2011 [facility] [place] [facility] [address] [id number] [place] [address]- 2478 Dec, [facility] [place] [facility] [address] [id number] [place] [address]- 8018 Dec, [facility] [place] [facility] [address] [id number] [place] [address]- 4072 18 Dec, 2011 [facility] [place] [facility] [address] [id number] [place] [address]- [address]94 Dec, [facility] [place] [facility] [address] [id number] [place] [address]- 4929 16 Dec, 2011 [facility] [place] [facility] [address] [id number] [place] [address]- 9988 14 Dec, 2011 [facility] [place] [facility] [address] [id number] [place] [address]- 9315 Dec, [facility] [place] [facility] [address] [id number] [place] [address]- 3187 Dec, [facility] [place] [facility] [address] [id number] [place] [address]- 0234 06 Dec, 2011 [facility] [place] [facility] [id number], [place] [address] 43[address] 29 Nov, 2011 [facility] [id number], [place] [address]388 27 Nov, 2011 [facility] [id number], [place] [address]- 9097 25 Nov, 2011 [facility] [id number], [place] [address]- 0491 23 Nov, 2011 [facility] [id number], [place] [address]- 6946 Nov, [facility] [id number] [place] [address]- 6097 Nov, [facility] [id number] [place] [address]- 8146 13 Nov, 2011 [facility] [id number] [place] [address] 264[address]- 1172 Nov, [facility] [id number], [place] [address]- 8319 Nov, [facility] [id number], [place] [address]- 2772 05 Nov, 2011 [facility] [address], [place] [address] 119[address] October, IMMUNIZATIONS No Known Immunizations SOCIAL HISTORY Never Assessed REASON FOR VISIT [place] [place] VITAL SIGNS MEDICATIONS Unknown [...]
[2018-09-09] MEDS ORDERED: NS IV 1000 ML 1,000 ML ONE (14:05)
[2018-09-09] MEDS: NS IV 1000 ML 1,000 ML IV SCH ×3 (14:10→15:34)
[2018-09-09 14:12] LABS: BASOPHILS % (AUTO) 0 % (0-10); EOSINOPHILS % (AUTO) 0 % (0-10); HEMATOCRIT 48 % (35-52); HEMOGLOBIN 16.1 G/DL (11.5-16.0); LYMPHOCYTES # (AUTO) 2.8 X 10^3 (1.0-4.0); LYMPHOCYTES % (AUTO) 26 % (12-44); MEAN CORPUSCULAR HEMOGLOBIN 29 PG (25-34); MEAN CORPUSCULAR HGB CONC 34 G/DL (32-36); MEAN CORPUSCULAR VOLUME 85 FL (80-99); MEAN PLATELET VOLUME 10.3 FL (7.4-10.4); MONOCYTES # (AUTO) 1.1 X 10^3 (0.0-1.0); MONOCYTES % (AUTO) 10 % (0-12); NEUTROPHILS # (AUTO) 6.9 X 10^3 (1.8-7.8); NEUTROPHILS % (AUTO) 64 % (42-75); PLATELET COUNT 454 10^3/uL (130-400); RED CELL DISTRIBUTION WIDTH 14.4 % (10.0-14.5); WHITE BLOOD COUNT 10.9 10^3/uL (4.3-11.0)
[2018-09-09] MEDS ORDERED: ONDANSETRON 4 MG/2 ML (SDV) Z0FRAN IVP ONE (14:15)
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
[2018-09-09] MEDS ORDERED: fentaNYL INJECTION 100 MCG/2 ML AMP IVP ONE (14:30)
[2018-09-09 14:35] LABS: ALANINE AMINOTRANSFERASE 124 U/L (0-55); ALBUMIN 5.5 GM/DL (3.2-4.5); ALKALINE PHOSPHATASE 126 U/L (40-136); AMYLASE 49 U/L (25-125); BILIRUBIN,TOTAL 0.9 MG/DL (0.1-1.0); BUN/CREATININE RATIO 19; CALCIUM 11.3 MG/DL (8.5-10.1); CARBON DIOXIDE 31 MMOL/L (21-32); CHLORIDE 87 MMOL/L (98-107); CREATININE SERUM 1.22 MG/DL (0.60-1.30); GFR ESTIMATED 49; GLUCOSE 140 MG/DL (70-105); LIPASE 75 U/L (8-78); POTASSIUM 3.1 MMOL/L (3.6-5.0); SODIUM 137 MMOL/L (135-145); TOTAL PROTEIN 9.5 GM/DL (6.4-8.2)
[2018-09-09] MEDS ORDERED: PROMETHAZINE INJ 25 MG/ML (PHENERGAN) AMP IVP ONE (14:45)
--- NOTE | 2018-09-09 15:22 | ED Abdominal Pain ---
General Chief Complaint: Abdominal/GI Problems Stated Complaint: VOMITING Nursing Triage Note: PT AMB TO TRIAGE WITH COMPLAINT OF ABD PAIN AND VOMITING FOR 7 DAYS. Sepsis Screen: No Definite Risk Source of Information: Patient Exam Limitations: No Limitations History of Present Illness Date Seen by Provider: Sep 09, 2018 Time Seen by Provider: 13:45 Allergies and Home Medications Allergies Coded Allergies: morphine (Verified Allergy, Unknown, CAUSES "REBOUND HEADACHES", 08/20/13) baclofen (Verified Adverse Reaction, Severe, 06/13/15) PATIENT UNAWARE OF REACTION BUT WAS HOSPITALIZED AFTER TAKING MEDICATION AND WAS TOLD IT WAS A REACTION DUE TO THE MEDICATION SHE TOOK. meloxicam (Verified Adverse Reaction, Severe, 06/13/15) PATIENT UNAWARE OF REACTION BUT WAS HOSPITALIZED AFTER TAKING MEDICATION AND WAS TOLD IT WAS A REACTION DUE TO THE MEDICATION SHE TOOK. NSAIDS (Non-Steroidal Anti-Inflamma (Verified Adverse Reaction, Mild, have IBS and avoid NSAIDS, 12/04/12) Home Medications Dicyclomine Hcl 20 Mg Tablet, 20 MG PO QID, (Reported) Hyoscyamine Sulfate 0.125 Mg Tab.subl, 0.125 MG SL Q4H PRN for CRAMPS Prescribed by: SADAF WALSH on 08/12/18 1844 Ondansetron 8 Mg Tab.rapdis, 8 MG PO Q6H PRN for NAUSEA/VOMITING Prescribed by: FAMILIA ELISE on 01/31/16 191 Ondansetron 4 Mg Tab.rapdis, 4 MG PO Q6H PRN for NAUSEA/VOMITING-1ST LINE Prescribed by: PAULA COLINDRES on 08/11/18 1232 Ondansetron 4 Mg Tab.rapdis, 4 MG PO Q6H PRN for NAUSEA/VOMITING Prescribed by: PAULA COLINDRES on 09/05/18 0534 Promethazine HCl 25 Mg Tablet, 25 MG PO Q6H PRN for NAUSEA/VOMITING Prescribed by: PAULA COLINDRES on 08/11/18 1232 Promethazine HCl 25 Mg Supp.rect, 25 MG RC Q6H Prescribed by: PAULA COLINDRES on 09/05/18 0534 Promethazine HCl 25 Mg Tablet, 25 MG PO Q6H PRN for NAUSEA/VOMITING Prescribed by: SADAF WALSH on 09/09/18 1605 Propranolol Hcl 10 Mg Tablet, 40 MG PO DAILY, (Reported) Past Kafmrcw-Feayhc-Mhlzxs Hx Patient Social History Alcohol Use: Denies Use Recreational Drug Use: No Smoking Status: Never a Smoker 2nd Hand Smoke Exposure: No Recent Foreign Travel: No Contact w/Someone Who Travel: No Recent Infectious Disease Expo: No Recent Hopitalizations: No Physical Abuse: No Sexual Abuse: No Immunizations Up To Date Tetanus Booster (TDap): More than 5yrs PED Vaccines UTD: No Date of Pneumonia Vaccine: Mar 03, 2014 Date of Influenza Vaccine: Mar 03, 2015 Seasonal Allergies Seasonal Allergies: No Past Medical History Surgeries: Yes (COLONOSCOPY) Bladder Surgery, Gallbladder, 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, Tubal Ligation Respiratory: Yes Asthma Currently Using CPAP: No Currently Using BIPAP: No Cardiac: No Neurological: Yes ("SEIZURE WITH LOW BP" PER PT) Seizure Disorder 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 advised multiple abdominal surgeries, cancer cells) Irritable Bowel Musculoskeletal: No Endocrine: No HEENT: No Loss of Vision: Denies Cancer: Yes Cervical, Colon Psychosocial: Yes Anxiety, Depression Integumentary: No Blood Disorders: No Adverse Reaction/Blood Tranf: No Family Medical History Diabetes mellitus 19 FATHER FHx: brain tumor 19 MOTHER HPV infection G8 SISTER No Family History of: AIDS Abdominal aortic aneurysm Appling's disease Alcoholism Alzheimer's disease Aphasia Arthritis Asthma Cancer of mouth Cardiovascular disease Cataracts Colon cancer Completed stroke Congenital disease Congenital heart disease Coronary thrombosis Cystic fibrosis Deafness or hearing loss Dementia Drug abuse Dysphasia Fibrocystic disease of breast Gastroenteritis Glaucoma Headache disorder Hypercholesterolemia Hypertension Infertility Kidney disease Myocardial infarction Neoplasm Not obtainable due to adoption Osteoporosis Parkinson's disease Prostate cancer Psychosocial problem Respiratory disorder Seizure disorder Severe allergy Thyroid disease Tuberculosis Visual disorder Heart Disease, Hypertension Physical Exam Vital Signs Vital Signs - First Documented 09/09/18 13:41 Temp 98.2 Pulse 114 Resp 20 B/P (MAP) 151/89 (109) Pulse Ox 96 O2 Delivery Room Air Capillary Refill : Less Than 3 Seconds Height/Weight/BMI Height: 5'5.00" Weight: 190lbs. 9.0oz. [id number]; 27.60 BMI Method:Stated Progress/Results/Core Measures Results/Orders Lab Results Laboratory Tests Test 09/09/18 13:45 09/09/18 15:50 Range/Units White Blood Count 10.9 4.3-11.0 10^3/uL Red Blood Count 5.62 4.35-5.85 10^6/uL Hemoglobin 16.1 H 11.5-16.0 G/DL Hematocrit 48 35-52 % Mean Corpuscular Volume 85 80-99 FL Mean Corpuscular Hemoglobin 29 25-34 PG Mean Corpuscular Hemoglobin Concent 34 32-36 G/DL Red Cell Distribution Width 14.4 10.0-14.5 % Platelet Count 454 H 130-400 10^3/uL Mean Platelet Volume 10.3 7.4-10.4 FL Neutrophils (%) (Auto) 64 42-75 % Lymphocytes (%) (Auto) 26 12-44 % Monocytes (%) (Auto) 10 0-12 % Eosinophils (%) (Auto) 0 0-10 % Basophils (%) (Auto) 0 0-10 % Neutrophils # (Auto) 6.9 1.8-7.8 X 10^3 Lymphocytes # (Auto) 2.8 1.0-4.0 X 10^3 Monocytes # (Auto) 1.1 H 0.0-1.0 X 10^3 Eosinophils # (Auto) 0.0 0.0-0.3 10^3/uL Basophils # (Auto) 0.0 0.0-0.1 10^3/uL Sodium Level 137 135-145 MMOL/L Potassium Level 3.1 L 3.6-5.0 MMOL/L Chloride Level 87 L 98-107 MMOL/L Carbon Dioxide Level 31 21-32 MMOL/L Anion Gap 19 H 5-14 MMOL/L Blood Urea Nitrogen 23 H 7-18 MG/DL Creatinine 1.22 0.60-1.30 MG/DL Estimat Glomerular Filtration Rate 49 BUN/Creatinine Ratio 19 Glucose Level 140 H 70-105 MG/DL Calcium Level 11.3 H 8.5-10.1 MG/DL Corrected Calcium 8.5-10.1 MG/DL Total Bilirubin 0.9 0.1-1.0 MG/DL Aspartate Amino Transf (AST/SGOT) 55 H 5-34 U/L Alanine Aminotransferase (ALT/SGPT) 124 H 0-55 U/L Alkaline Phosphatase 126 40-136 U/L Total Protein 9.5 H 6.4-8.2 GM/DL Albumin 5.5 H 3.2-4.5 GM/DL Amylase Level 49 25-125 U/L Lipase 75 8-78 U/L Urine Color YELLOW Urine Clarity SLIGHTLY CLOUDY Urine pH 6 5-9 Urine Specific [place] 1.020 1.016-1.022 Urine Protein 3+ H NEGATIVE Urine Glucose (UA) NEGATIVE NEGATIVE Urine Ketones 4+ H NEGATIVE Urine Nitrite NEGATIVE NEGATIVE Urine Bilirubin 1+ H NEGATIVE Urine Urobilinogen 1 NORMAL MG/DL Urine Leukocyte Esterase 1+ H NEGATIVE Urine RBC (Auto) NEGATIVE NEGATIVE Urine RBC NONE /HPF Urine WBC 10-25 H /HPF Urine Squamous Epithelial Cells 10-25 H /HPF Urine Crystals NONE /LPF Urine Bacteria MODERATE H /HPF Urine Casts NONE /LPF Urine Mucus LARGE H /LPF Urine Culture Indicated YES My Orders Orders - SADAF WALSH Comprehensive Metabolic Panel (09/09/18 13:54) Lipase (09/09/18 13:54) Amylase (09/09/18 13:54) Ua Culture If Indicated (09/09/18 13:54) Ed Iv/Invasive Line Start (09/09/18 13:54) Cbc With Automated Diff (09/09/18 13:54) Ondansetron Injection (Zofran Injectio (09/09/18 14:15) Ns Iv 1000 Ml (Sodium Chloride 0.9%) (09/09/18 14:15) Ns Iv 1000 Ml (Sodium Chloride 0.9%) (09/09/18 14:05) Fentanyl Injection (Sublimaze Injection (09/09/18 14:30) Promethazine Injection (Phenergan Injec (09/09/18 14:45) Ns Iv 1000 Ml (Sodium Chloride 0.9%) (09/09/18 15:30) Urine Culture (09/09/18 15:50) Medications Given in ED Current Medications Medications Dose Ordered Sig/Judi Route Start Time Stop Time Status Last Admin Dose Admin Fentanyl Citrate 50 mcg ONCE ONCE IVP 09/09/18 14:30 09/09/18 14:31 DC 09/09/18 14:37 50 MCG Ondansetron HCl 4 mg ONCE ONCE IVP 09/09/18 14:15 09/09/18 14:16 DC 09/09/18 14:10 4 MG Promethazine HCl 25 mg ONCE ONCE IVP 09/09/18 14:45 09/09/18 14:46 DC 09/09/18 14:37 25 MG Vital Signs/I&O 09/09/18 13:41 Temp 98.2 Pulse 114 Resp 20 B/P (MAP) 151/89 (109) Pulse Ox 96 O2 Delivery Room Air Blood Pressure Mean: 109 Departure Impression Primary Impression: Nausea and vomiting Additional Impression: Urinary tract infection Disposition: HOME, SELF-CARE Condition: Stable/Unchanged Departure-Patient Inst. Decision time for Depature: 16:02 Referrals: [facility] [place] (PCP/Family) Primary Care Physician PENNY ALMAZAN DO Patient Instructions: Nausea and Vomiting, Adult (DC), Urinary Tract Infection , Adult (DC) Add. Discharge Instructions: Take medications as directed. Drink plenty of clear liquids to stay hydrated and help flush out your kidneys. Follow-up with Colton Houser within 1 week. Follow- up with Dr. Almazan's office by calling for an appointment time tomorrow morning. Return back to the emergency room for worsening symptoms or concerns as needed. All discharge instructions reviewed with patient and/or family. Voiced understanding. Scripts Nitrofurantoin Monohyd/M-Cryst (Macrobid 100 mg Capsule) 100 Mg Capsule 1 TAB PO BID for 7 Days, #14 CAP Prov: SADAF WALSH 09/09/18 Promethazine HCl (Promethazine Tablet) 25 Mg Tablet 25 MG PO Q6H PRN for NAUSEA/VOMITING, #20 TAB Prov: SADAF WALSH 09/09/18 SADAF WALSH Sep 09, 2018 15:22
[2018-09-09] MEDS ORDERED: NS IV 1000 ML 1,000 ML IV SCH (15:30)
[2018-09-09 16:00] LABS: CLARITY,URINE SLIGHTLY CLOUDY; COLOR,URINE YELLOW; GLUCOSE, URINE (UA) NEGATIVE (NEGATIVE); KETONES,URINE 4+ (NEGATIVE); LEUKOCYTE ESTERASE ,URINE 1+ (NEGATIVE); NITRITE,URINE NEGATIVE (NEGATIVE); PH,URINE 6 (5-9); PROTEIN,URINE 3+ (NEGATIVE); UROBILINOGEN,URINE 1 MG/DL (NORMAL)
[2018-09-09] MEDS ORDERED: PROM25TA14 PO (16:05)
[2018-09-09 16:12] LABS: BILIRUBIN,URINE 1+ (NEGATIVE)
[2018-09-09 16:14] LABS: BACTERIA,URINE MODERATE /HPF
[2018-09-09] MEDS ORDERED: NITR-65 PO (16:18)
[2018-09-09 16:25] VITALS: BP 154/126
[2018-09-09] MEDS ORDERED: KCL 20 MEQ TAB (K-DUR) PO ONE (16:30)
== END 2018-09-09 16:25 | disposition home or self-care (01) ==
LOC: EDUNIT# 13:33 → ER 13:35
DX: N39.0 Urinary tract infection, site not specified (principal); J45.909 Unspecified asthma, uncomplicated; F41.9 Anxiety disorder, unspecified; F32.9 Major depressive disorder, single episode, unspecified; G40.909 Epilepsy, unspecified, not intractable, without status epilepticus; K58.9 Irritable bowel syndrome, unspecified; Z85.038 Personal history of other malignant neoplasm of large intestine; Z85.41 Personal history of malignant neoplasm of cervix uteri; Z86.19 Personal history of other infectious and parasitic diseases; Z87.448 Personal history of other diseases of urinary system; Z87.440 Personal history of urinary (tract) infections; Z88.6 Allergy status to analgesic agent; Z88.5 Allergy status to narcotic agent; Z88.8 Allergy status to other drugs, medicaments and biological substances; Z90.710 Acquired absence of both cervix and uterus; Z98.51 Tubal ligation status
CPT/HCPCS: 36415; 80053; 81000; 82150; 83690; 85025; 87088

== ENCOUNTER 2018-10-01 03:19 | Emergency (ER) | payer SELFPAY ==
[~2018-10-01] VITALS: Ht 165.1 cm; Wt 88.7 kg
[2018-10-01] MEDS ORDERED: NS IV 1000 ML 1,000 ML IV ONE (03:21)
[2018-10-01] MEDS ORDERED: ONDANSETRON 4 MG/2 ML (SDV) Z0FRAN IVP ONE (03:30)
[2018-10-01 03:44] LABS: BASOPHILS % (AUTO) 0 % (0-10); EOSINOPHILS % (AUTO) 0 % (0-10); HEMATOCRIT 44 % (35-52); HEMOGLOBIN 14.3 G/DL (11.5-16.0); LYMPHOCYTES # (AUTO) 2.3 X 10^3 (1.0-4.0); LYMPHOCYTES % (AUTO) 28 % (12-44); MEAN CORPUSCULAR HEMOGLOBIN 28 PG (25-34); MEAN CORPUSCULAR HGB CONC 32 G/DL (32-36); MEAN CORPUSCULAR VOLUME 87 FL (80-99); MEAN PLATELET VOLUME 9.1 FL (7.4-10.4); MONOCYTES # (AUTO) 0.6 X 10^3 (0.0-1.0); MONOCYTES % (AUTO) 7 % (0-12); NEUTROPHILS # (AUTO) 5.2 X 10^3 (1.8-7.8); NEUTROPHILS % (AUTO) 65 % (42-75); PLATELET COUNT 462 10^3/uL (130-400); RED CELL DISTRIBUTION WIDTH 15.1 % (10.0-14.5)
[2018-10-01] MEDS ORDERED: FAMOTIDINE 20MG/2ML IV (PEPCID) IVP ONE (03:45)
[2018-10-01 04:05] LABS: ALANINE AMINOTRANSFERASE 40 U/L (0-55); ALKALINE PHOSPHATASE 106 U/L (40-136); BILIRUBIN,TOTAL 0.4 MG/DL (0.1-1.0); BUN/CREATININE RATIO 10; CALCIUM 10.9 MG/DL (8.5-10.1); CARBON DIOXIDE 21 MMOL/L (21-32); CHLORIDE 103 MMOL/L (98-107); CREATININE SERUM 1.12 MG/DL (0.60-1.30); GFR ESTIMATED 54; GLUCOSE 144 MG/DL (70-105); MAGNESIUM 2.1 MG/DL (1.8-2.4); POTASSIUM 3.6 MMOL/L (3.6-5.0); SODIUM 143 MMOL/L (135-145); TOTAL PROTEIN 8.6 GM/DL (6.4-8.2)
[2018-10-01 04:06] LABS: LIPASE 47 U/L (8-78)
[2018-10-01] MEDS ORDERED: LACTATED RINGERS 1,000 ML IV ONE (04:32)
--- NOTE | 2018-10-01 04:41 | NUR ---
UPON ENTERING PT'S ROOM, PT RESTING WITH EYES CLOSED, WHEN ASKED IF HER NAUSEA IS CONTROLLED PT STATES YES, PT STATES ABDOMINAL PAIN IS STILL PRESENT.
[2018-10-01] MEDS ORDERED: PROMETHAZINE INJ 25 MG/ML (PHENERGAN) AMP IVP ONE ×2 (04:45→05:30)
[2018-10-01] MEDS ORDERED: ANTACID SUSP 30 ML UDC (MYLANTA) PO ONE (04:45)
[2018-10-01] MEDS ORDERED: LIDOCAINE 2% VISCOUS 15 ML UDC PO ONE (04:45)
--- NOTE | 2018-10-01 05:13 | ED Abdominal Pain ---
General Chief Complaint: Abdominal/GI Problems Stated Complaint: VOMITING Nursing Triage Note: PT PRESENTS FROM HOME, STATES SHE HAS HAD NVD FOR THE LAST 24 HOURS, STATES SHE HAS ONLY HAD ONE LOOSE STOOL BUT HAS EXPERIENCED PERSISTENT NAUSEA AND VOMITING DESPITE BEING PRESCRIBED PO ZOFRAN BY HER PCP. Sepsis Screen: Possible Sepsis Risk Source of Information: Patient, Old Records Exam Limitations: No Limitations History of Present Illness Date Seen by Provider: October 01, 2018 Time Seen by Provider: 03:21 Initial Comments This 42-year-old woman presents to the emergency room with complaints of nausea , vomiting, loose stools, and central abdominal pain. The past 24 hours. She took some Zofran prescribed by her primary care provider yesterday but this did not alleviate her nausea. Patient has had numerous visits to the emergency room for abdominal pain and vomiting. She does not know the cause of these episodes. She denies drug or alcohol use including marijuana. He denies any narcotic use that she may be withdrawing from. Patient has had cholecystectomy and hysterectomy. She has had numerous imaging studies of the abdomen and pelvis including negative CTs of the abdomen and pelvis on August 11 and August 12. Allergies and Home Medications Allergies Coded Allergies: morphine (Verified Allergy, Unknown, CAUSES "REBOUND HEADACHES", 08/20/13) baclofen (Verified Adverse Reaction, Severe, 06/13/15) PATIENT UNAWARE OF REACTION BUT WAS HOSPITALIZED AFTER TAKING MEDICATION AND WAS TOLD IT WAS A REACTION DUE TO THE MEDICATION SHE TOOK. meloxicam (Verified Adverse Reaction, Severe, 06/13/15) PATIENT UNAWARE OF REACTION BUT WAS HOSPITALIZED AFTER TAKING MEDICATION AND WAS TOLD IT WAS A REACTION DUE TO THE MEDICATION SHE TOOK. NSAIDS (Non-Steroidal Anti-Inflamma (Verified Adverse Reaction, Mild, have IBS and avoid NSAIDS, 12/04/12) Home Medications Dicyclomine Hcl 20 Mg Tablet, 20 MG PO QID, (Reported) Hyoscyamine Sulfate 0.125 Mg Tab.subl, 0.125 MG SL Q4H PRN for CRAMPS Prescribed by: SADAF WALSH on 08/12/18 184 Nitrofurantoin Monohyd/M-Cryst 100 Mg Capsule, 1 TAB PO BID Prescribed by: SADAF WALSH on 09/09/18 1618 Ondansetron 8 Mg Tab.rapdis, 8 MG PO Q6H PRN for NAUSEA/VOMITING Prescribed by: FAMILIA ELISE on 01/31/16 191 Ondansetron 4 Mg Tab.rapdis, 4 MG PO Q6H PRN for NAUSEA/VOMITING-1ST LINE Prescribed by: PAUAL COLINDRES on 08/11/18 1232 Ondansetron 4 Mg Tab.rapdis, 4 MG PO Q6H PRN for NAUSEA/VOMITING Prescribed by: PAULA COLINDRES on 09/05/18 0534 Promethazine HCl 25 Mg Tablet, 25 MG PO Q6H PRN for NAUSEA/VOMITING Prescribed by: PAULA COLINDRES on 08/11/18 1232 Promethazine HCl 25 Mg Supp.rect, 25 MG RC Q6H Prescribed by: PAULA COLINDRES on 09/05/18 0534 Promethazine HCl 25 Mg Tablet, 25 MG PO Q6H PRN for NAUSEA/VOMITING Prescribed by: SADAF WALSH on 09/09/18 1605 Propranolol Hcl 10 Mg Tablet, 40 MG PO DAILY, (Reported) Patient Home Medication List Home Medication List Reviewed: Yes Review of Systems Review of Systems Constitutional: no symptoms reported EENTM: No Symptoms Reported Respiratory: No Symptoms Reported Cardiovascular: No Symptoms Reported Gastrointestinal: See HPI Genitourinary: No Symptoms Reported Musculoskeletal: no symptoms reported Skin: no symptoms reported Psychiatric/Neurological: No Symptoms Reported Endocrine: No Symptoms Reported Past Rnijmxc-Bglpfk-Lwtokj Hx Past Med/Social Hx: Reviewed Nursing Past Med/Soc Hx Patient Social History Alcohol Use: Denies Use Recreational Drug Use: No 2nd Hand Smoke Exposure: No Recent Foreign Travel: No Contact w/Someone Who Travel: No Recent Infectious Disease Expo: No Recent Hopitalizations: No Immunizations Up To Date Tetanus Booster (TDap): More than 5yrs PED Vaccines UTD: No Date of Pneumonia Vaccine: Mar 03, 2014 Date of Influenza Vaccine: Mar 03, 2015 Seasonal Allergies Seasonal Allergies: No Past Medical History Surgeries: Yes (COLONOSCOPY) Bladder Surgery, Gallbladder, 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, Tubal Ligation Respiratory: Yes Asthma Currently Using CPAP: No Currently Using BIPAP: No Cardiac: No Neurological: Yes ("SEIZURE WITH LOW BP" PER PT) Seizure Disorder : No 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 Disorders: 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 advised multiple abdominal surgeries, cancer cells) Irritable Bowel Musculoskeletal: No Endocrine: No HEENT: No Loss of Vision: Denies Cancer: Yes Cervical, Colon Psychosocial: Yes Anxiety, Depression Integumentary: No Blood Disorders: No Adverse Reaction/Blood Tranf: No Family Medical History Diabetes mellitus 19 FATHER FHx: brain tumor 19 MOTHER HPV infection G8 SISTER No Family History of: AIDS Abdominal aortic aneurysm Bertie's disease Alcoholism Alzheimer's disease Aphasia Arthritis Asthma Cancer of mouth Cardiovascular disease Cataracts Colon cancer Completed stroke Congenital disease Congenital heart disease Coronary thrombosis Cystic fibrosis Deafness or hearing loss Dementia Drug abuse Dysphasia Fibrocystic disease of breast Gastroenteritis Glaucoma Headache disorder Hypercholesterolemia Hypertension Infertility Kidney disease Myocardial infarction Neoplasm Not obtainable due to adoption Osteoporosis Parkinson's disease Prostate cancer Psychosocial problem Respiratory disorder Seizure disorder Severe allergy Thyroid disease Tuberculosis Visual disorder Heart Disease, Hypertension Physical Exam Vital Signs Vital Signs - First Documented 10/01/18 03:25 Temp 98.4 Pulse 113 Resp 22 B/P (MAP) 177/123 (141) Pulse Ox 98 O2 Delivery Room Air Capillary Refill : Less Than 3 Seconds Height/Weight/BMI Height: 5'5.00" Weight: 195lbs. 9.0oz. 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, no motor/sensory deficits, alert, normal mood/affect, oriented x 3 Skin: normal color, warm/dry Progress/Results/Core Measures Results/Orders Lab Results Laboratory Tests Test 10/01/18 03:35 10/01/18 05:05 Range/Units White Blood Count 8.0 4.3-11.0 10^3/uL Red Blood Count 5.08 4.35-5.85 10^6/uL Hemoglobin 14.3 11.5-16.0 G/DL Hematocrit 44 35-52 % Mean Corpuscular Volume 87 80-99 FL Mean Corpuscular Hemoglobin 28 25-34 PG Mean Corpuscular Hemoglobin Concent 32 32-36 G/DL Red Cell Distribution Width 15.1 H 10.0-14.5 % Platelet Count 462 H 130-400 10^3/uL Mean Platelet Volume 9.1 7.4-10.4 FL Neutrophils (%) (Auto) 65 42-75 % Lymphocytes (%) (Auto) 28 12-44 % Monocytes (%) (Auto) 7 0-12 % Eosinophils (%) (Auto) 0 0-10 % Basophils (%) (Auto) 0 0-10 % Neutrophils # (Auto) 5.2 1.8-7.8 X 10^3 Lymphocytes # (Auto) 2.3 1.0-4.0 X 10^3 Monocytes # (Auto) 0.6 0.0-1.0 X 10^3 Eosinophils # (Auto) 0.0 0.0-0.3 10^3/uL Basophils # (Auto) 0.0 0.0-0.1 10^3/uL Sodium Level 143 135-145 MMOL/L Potassium Level 3.6 3.6-5.0 MMOL/L Chloride Level 103 98-107 MMOL/L Carbon Dioxide Level 21 21-32 MMOL/L Anion Gap 19 H 5-14 MMOL/L Blood Urea Nitrogen 11 7-18 MG/DL Creatinine 1.12 0.60-1.30 MG/DL Estimat Glomerular Filtration Rate 54 BUN/Creatinine Ratio 10 Glucose Level 144 H 70-105 MG/DL Calcium Level 10.9 H 8.5-10.1 MG/DL Corrected Calcium 8.5-10.1 MG/DL Magnesium Level 2.1 1.8-2.4 MG/DL Total Bilirubin 0.4 0.1-1.0 MG/DL Aspartate Amino Transf (AST/SGOT) 30 5-34 U/L Alanine Aminotransferase (ALT/SGPT) 40 0-55 U/L Alkaline Phosphatase 106 40-136 U/L Total Protein 8.6 H 6.4-8.2 GM/DL Albumin 5.0 H 3.2-4.5 GM/DL Lipase 47 8-78 U/L Serum Alcohol < 10 <10 MG/DL Urine Color YELLOW Urine Clarity CLEAR Urine pH 5 5-9 Urine Specific [place] 1.025 H 1.016-1.022 Urine Protein 2+ H NEGATIVE Urine Glucose (UA) NEGATIVE NEGATIVE Urine Ketones 3+ H NEGATIVE Urine Nitrite NEGATIVE NEGATIVE Urine Bilirubin NEGATIVE NEGATIVE Urine Urobilinogen NORMAL NORMAL MG/DL Urine Leukocyte Esterase NEGATIVE NEGATIVE Urine RBC (Auto) NEGATIVE NEGATIVE Urine RBC NONE /HPF Urine WBC 0-2 /HPF Urine Squamous Epithelial Cells 10-25 H /HPF Urine Crystals PRESENT H /LPF Urine Amorphous Sediment LARGE TETE URATES H /LPF Urine Bacteria FEW H /HPF Urine Casts NONE /LPF Urine Mucus MODERATE H /LPF Urine Culture Indicated NO Urine Opiates Screen NEGATIVE NEGATIVE Urine Oxycodone Screen NEGATIVE NEGATIVE Urine Methadone Screen NEGATIVE NEGATIVE Urine Propoxyphene Screen NEGATIVE NEGATIVE Urine Barbiturates Screen NEGATIVE NEGATIVE Ur Tricyclic Antidepressants Screen NEGATIVE NEGATIVE Urine Phencyclidine Screen NEGATIVE NEGATIVE Urine Amphetamines Screen NEGATIVE NEGATIVE Urine Methamphetamines Screen NEGATIVE NEGATIVE Urine Benzodiazepines Screen NEGATIVE NEGATIVE Urine Cocaine Screen NEGATIVE NEGATIVE Urine Cannabinoids Screen POSITIVE H NEGATIVE My Orders Orders - MARY VITAL MD Cbc With Automated Diff (10/01/18 03:21) Comprehensive Metabolic Panel (10/01/18 03:21) Magnesium (10/01/18 03:21) Ua Culture If Indicated (10/01/18 03:21) Ed Iv/Invasive Line Start (10/01/18 03:21) Ns Iv 1000 Ml (Sodium Chloride 0.9%) (10/01/18 03:21) Ondansetron Injection (Zofran Injectio (10/01/18 03:30) Famotidine Injection (Pepcid Injection) (10/01/18 03:45) Lipase (10/01/18 03:45) Alcohol (10/01/18 03:46) Drug Screen Stat (Urine) (10/01/18 03:46) Promethazine Injection (Phenergan Injec (10/01/18 04:45) Lidocaine 2% Viscous 15 Ml (Xylocaine Vi (10/01/18 04:45) Lactated Ringers (Lr 1000 Ml Iv Solution (10/01/18 04:32) Antacid Suspension (Mylanta Suspension (10/01/18 04:45) Promethazine Injection (Phenergan Injec (10/01/18 05:30) Fentanyl Injection (Sublimaze Injection (10/01/18 05:30) Acute Abd Series (10/01/18 05:29) Medications Given in ED Current Medications Medications Dose Ordered Sig/Judi Route Start Time Stop Time Status Last Admin Dose Admin Al Hydrox/Mg Hydrox/Simethicone 30 ml ONCE ONCE PO 10/01/18 04:45 10/01/18 04:46 DC 10/01/18 04:55 30 ML Famotidine 20 mg ONCE ONCE IVP 10/01/18 03:45 10/01/18 03:46 DC 10/01/18 04:00 20 MG Fentanyl Citrate 50 mcg ONCE ONCE IVP 10/01/18 05:30 10/01/18 05:31 DC 10/01/18 06:00 50 MCG Lactated Ringer's 1,000 ml @ 0 mls/hr Q0M ONCE IV 10/01/18 04:32 10/01/18 04:34 DC 10/01/18 04:30 1,000 MLS/HR Lidocaine HCl 15 ml ONCE ONCE PO 10/01/18 04:45 10/01/18 04:46 DC 10/01/18 04:56 15 ML Ondansetron HCl 8 mg ONCE ONCE IVP 10/01/18 03:30 10/01/18 03:31 DC 10/01/18 03:46 8 MG Promethazine HCl 12.5 mg ONCE ONCE IVP 10/01/18 04:45 10/01/18 04:46 DC 10/01/18 04:40 12.5 MG Promethazine HCl 12.5 mg ONCE ONCE IVP 10/01/18 05:30 10/01/18 05:31 DC 10/01/18 05:59 12.5 MG Sodium Chloride 1,000 ml @ 0 mls/hr Q0M ONCE IV 10/01/18 03:21 10/01/18 03:24 DC 10/01/18 03:45 1,000 MLS/HR Vital Signs/I&O 10/01/18 03:25 Temp 98.4 Pulse 113 Resp 22 B/P (MAP) 177/123 (141) Pulse Ox 98 O2 Delivery Room Air Blood Pressure Mean: 141 Progress Progress Note #1: Time: 05:15 Progress Note Patient was given a liter of IV fluid and Zofran. She complained of persisted nausea. Continued abdominal pain. A GI cocktail and Phenergan were then administered. Nausea improved but pain persisted. Patient has been unable to urinate. A second liter of IV fluid is nearing completion. We will ask her to urinate for urine specimen studies and then consider something more potent for abdominal pain and GI cocktail has not worked by that time. Progress Note #2: Time: 06:38 Progress Note Patient was resting comfortably and quietly after receiving a second dose of Phenergan and fentanyl. Acute abdominal series was unremarkable. Urine drug screen was positive for marijuana. Patient adamantly denied use of marijuana and stated "it must of been my cousin's cookies because I don't use marijuana". I advised her to follow-up with her primary care provider and seek referral to a surgeon or intake clerk to discuss endoscopy for further evaluation of her recurrent episodes of of pain and vomiting. Diagnostic Imaging Diagonstic Imaging: Xray Plain Films/CT/US/NM/MRI: chest, abdomen, pelvis Comments Acute abdominal series x-rays viewed by me. Report not yet available. No acute abnormalities appreciated. No evidence for bowel obstruction, free air, constipation, pulmonary infiltrate, etc. Departure Impression Primary Impression: Upper abdominal pain Additional Impression: Nausea and vomiting Qualified Codes: R11.2 - Nausea with vomiting, unspecified Disposition: 01 HOME, SELF-CARE Condition: Improved Departure-Patient Inst. Decision time for Depature: 06:36 [facility]) Primary Care Physician Patient Instructions: Acute Abdomen (Belly Pain), Adult (DC) Add. Discharge Instructions: Start with a clear liquid diet and gradually advance your diet with small quantities of bland food as tolerated. Drink plenty of clear liquids. You may continue using Zofran as prescribed for primary control nausea. Add Phenergan (promethazine) as prescribed for nausea and vomiting not controlled by Zofran. Avoid any exposure to marijuana, smoke or consumed orally, as this may worsen abdominal pain and nausea. These side effects may happen long after the ingestion or inhalation. Return to the emergency room if you have worsening symptoms. Follow-up with your primary care provider soon as possible. Discussed referral to a intake clerk or surgeon for endoscopy and further discussion about your recurrent episodes of pain and vomiting. All discharge instructions reviewed with patient and/or family. Voiced understanding. Scripts Famotidine (Pepcid) 20 Mg Tablet 20 MG PO BID, #30 TAB Prov: MARY VITAL MD 10/01/18 Promethazine HCl (Promethazine Tablet) 25 Mg Tablet 25 MG PO Q8H PRN for NAUSEA/VOMITING, #10 TAB 0 Refills Prov: MARY VITAL MD 10/01/18 Copy Copies To 1: ANNE BYRD JOSHUA T MD October 01, 2018 05:13
[2018-10-01] MEDS ORDERED: fentaNYL INJECTION 100 MCG/2 ML AMP IVP ONE (05:30)
[2018-10-01 05:34] LABS: BILIRUBIN,URINE NEGATIVE (NEGATIVE); CLARITY,URINE CLEAR; COLOR,URINE YELLOW; GLUCOSE, URINE (UA) NEGATIVE (NEGATIVE); KETONES,URINE 3+ (NEGATIVE); LEUKOCYTE ESTERASE ,URINE NEGATIVE (NEGATIVE); NITRITE,URINE NEGATIVE (NEGATIVE); PH,URINE 5 (5-9); PROTEIN,URINE 2+ (NEGATIVE); UROBILINOGEN,URINE NORMAL (NORMAL)
[2018-10-01 05:45] LABS: AMORPHOUS SEDIMENT,UR LARGE AMOR URATES /LPF; BACTERIA,URINE FEW /HPF; WBC,URINE 0-2 /HPF
[2018-10-01 05:50] LABS: AMPHETAMINE SCREEN, URINE NEGATIVE (NEGATIVE); BARBITURATE SCREEN URINE NEGATIVE (NEGATIVE); BENZODIAZEPINES SCREEN URINE NEGATIVE (NEGATIVE); CANNABINOID SCREEN, URINE POSITIVE (NEGATIVE); COCAINE SCREEN URINE NEGATIVE (NEGATIVE); METHADONE STAT NEGATIVE (NEGATIVE); METHAMPHETAMINE SCREEN URINE S NEGATIVE (NEGATIVE); OPIATE SCREEN URINE NEGATIVE (NEGATIVE); OXYCODONE STAT NEGATIVE (NEGATIVE); PROPOXYPHENE STAT NEGATIVE (NEGATIVE); TRICYCLIC ANTIDEPRESSANTS SCRE NEGATIVE (NEGATIVE)
[2018-10-01] MEDS ORDERED: PROM25TA14 PO (06:40)
[2018-10-01] MEDS ORDERED: FAMO-119 PO (06:40)
[2018-10-01 07:01] VITALS: BP 147/94
--- NOTE | 2018-10-01 07:55 | Diagnostic Imaging Report ---
INDICATION: Pain. The lungs are clear. The heart and vessels normal. There is no effusion or pneumothorax. The bowel gas pattern unremarkable. There are clips at the gallbladder fossa. There are pelvic phleboliths. No abnormal fecal loading and no pneumatosis and no free gas. IMPRESSION: No acute finding radiographically apparent. Dictated by: Dictated on workstation # [id number]
== END 2018-10-01 07:02 | disposition home or self-care (01) ==
LOC: EDUNIT# 03:19 → ER 03:20
DX: R10.10 Upper abdominal pain, unspecified (principal); R11.2 Nausea with vomiting, unspecified; K58.9 Irritable bowel syndrome, unspecified; J45.909 Unspecified asthma, uncomplicated; G40.909 Epilepsy, unspecified, not intractable, without status epilepticus; F41.9 Anxiety disorder, unspecified; F32.9 Major depressive disorder, single episode, unspecified; Z88.5 Allergy status to narcotic agent; Z86.19 Personal history of other infectious and parasitic diseases; Z85.41 Personal history of malignant neoplasm of cervix uteri; Z85.038 Personal history of other malignant neoplasm of large intestine; Z88.8 Allergy status to other drugs, medicaments and biological substances; Z88.6 Allergy status to analgesic agent; Z90.49 Acquired absence of other specified parts of digestive tract; Z90.710 Acquired absence of both cervix and uterus; Z98.51 Tubal ligation status; Z98.890 Other specified postprocedural states
CPT/HCPCS: 36415; 74022; 80053; 80306; 80320; 81000; 83690; 83735; 85025

== ENCOUNTER 2018-11-18 20:10 | Emergency (ER) | payer SELFPAY ==
[~2018-11-18] VITALS: Ht 165.1 cm; Wt 80.7 kg
[~2018-11-18 20:10] MED LIST changes: +FAMO-119 PO
--- OUTSIDE RECORDS SUMMARY | 2018-11-18 20:17 | XMS REPORT ---
Author Author Migration, Doctor Organization [facility] Address Unknown Phone Unavailable Care Team Providers Care Financial Reserve Clerk Name Role Phone Migration, Doctor Unavailable Unavailable PROBLEMS Type Condition ICD9-CM Code NNR28-SU Code Onset Dates Condition Status SNOMED Code Problem Elevated liver enzymes R74.8 Active 098286997 Problem Abnormal glucose R73.09 Active 806787776 Problem Hyperlipidemia LDL goal <100 E78.5 Active 81408170 Problem Hypokalemia E87.6 Active 68698360 Problem Major depressive disorder, recurrent episode, moderate F33.1 Active 974714560 Problem Tremor, hereditary, benign G25.0 Active 365544216 Problem Chronic migraine without aura with status migrainosus, not intractable G43.701 Active 685481747 Problem 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 Active 95954944 Problem Other chronic pain G89.29 Active 10367140 Problem Seizure disorder G40.909 Active 414506635 Problem Other chronic pain G89.29 Active 16120139 Problem Essential hypertension I10 Active 67212021 Problem Reflux gastritis K29.60 Active 95384570 Problem Irritable bowel K58.9 Active 35809812 Problem Primary insomnia F51.01 Active 1614958 Problem Moderate persistent asthma without complication J45.40 Active 679200307 Problem Moderate persistent asthma with exacerbation J45.41 Active 846497512 Problem Intractable chronic migraine without aura and with status migrainosus G43.711 Active 942887292 ALLERGIES No Information ENCOUNTERS Encounter Location Date Diagnosis [facility] [address] [place] [address] Sep, Chronic nausea R11.0 [facility] [address] [address] Sep, [facility] [id number] [address] Sep, Viral gastroenteritis A08.4 [facility] [id number] [place] [address] Aug, Headache R51 ; Viral upper respiratory tract infection J06.9 and Nausea R11.0 [facility] [id number] [place] [address] Jun, Reflux gastritis K29.60 [facility] [id number] [place] [address] Jun, [facility] [id number] [place] [address] May, [facility] [id number] [place] [address] May, [facility] [id number] [place] [address] Apr, Bowel habit changes R19.4 and Acute cystitis without hematuria N30.00 [facility] [id number] [place] [address] Apr, Pain in right shoulder M25.511 [facility] [id number] [place] [address] Apr, [facility] [id number] [place] [address] Mar, [facility] [id number] [place] [address] Mar, [facility] [id number] [place] [address] Mar, [facility] [id number] [place] [address] Mar, [facility] [id number] [place] [address] 14 Feb, 2018 [facility] [id number] [place] [address] 10 Feb, 2018 [facility] [id number] [place] [address] Feb, [facility] [address] [address] Jan, [facility] [id number] [place] [address] Dec, [facility] [id number] [place] [address] Dec, Other chronic pain G89.29 ; Pain in right shoulder M25.511 and Liver enzyme elevation R74.8 [facility] [id number] [place] [address] Nov, Other chronic pain G89.29 and Pain in right shoulder M25.511 [facility] [id number] [place] [address] October, [facility] [id number] [place] [address] October, Right shoulder pain, unspecified chronicity M25.511 [facility] [id number] [place] [address] Aug, Elevated liver enzymes R74.8 and Hyperlipidemia LDL goal <100 E78.5 [facility] [id number] [place] [address] Aug, [facility] [id number] [place] [address] Jul, [facility] [address] [place] [address] Jul, Intractable chronic migraine without aura and with status migrainosus G43.711 ; Fever, unspecified fever cause R50.9 and Elevated liver enzymes R74.8 [facility] [address] [address] Jun, Difficulty urinating R39.198 and Moderate persistent asthma with exacerbation J45.41 [facility] [id number] [place] [address] Jun, [facility] [address] [address] Jun, Moderate persistent asthma with exacerbation J45.41 [facility] [id number] [place] [address] May, Elevated liver enzymes R74.8 and Hyperlipidemia LDL goal <100 E78.5 [facility] [address] [address] May, Elevated lipids E78.5 [facility] [address] [address] Apr, Elevated liver enzymes R74.8 [facility] [address] [address] Apr, Elevated liver enzymes R74.8 [facility] [address] [address] Apr, Superior glenoid labrum lesion of right shoulder, subsequent encounter S43.431D [address] [address] Apr, Hypokalemia E87.6 ; Major depressive disorder, recurrent episode, moderate F33.1 ; Other abnormalities of breathing R06.89 and Dyspnea, unspecified R06.00 [facility] [id number] [place] [address] Mar, Moderate persistent asthma without complication J45.40 [facility] [id number] [place] [address] Mar, Impingement syndrome of right shoulder M75.41 [facility] [id number] [place] [address] Jan, [facility] [id number] [place] [address] 03 Aug, 2017 Chronic migraine without aura with status migrainosus, not intractable G43.701 ; Essential hypertension I10 ; Irritable bowel K58.9 ; Primary insomnia F51.01 and Hypokalemia E87.6 [facility] [id number] [place] [address] Dec, [facility] [id number] [place] [address] Dec, Pain in right shoulder M25.511 [facility] [id number] [place] [address] Dec, Essential hypertension I10 [facility] [id number] [place] [address] Dec, [facility] [id number] [place] [address] Nov, Essential hypertension I10 [facility] [id number] [place] [address] Nov, Pain in right shoulder M25.511 [facility] [id number] [place] [address] Nov, Pain in right shoulder M25.511 [facility] [id number] [place] [address] October, [facility] [id number] [place] [address] October, Pain in right shoulder M25.511 [facility] [id number] [place] [address] Sep, Arm pain, right M79.601 [facility] [id number] [place] [address] Sep, [facility] [id number] [place] [address] Sep, Abnormal glucose R73.09 and Elevated lipids E78.5 [facility] [id number] [place] [address] Sep, Abnormal glucose R73.09 and Elevated lipids E78.5 [facility] [id number] [place] [address] Aug, [facility] [id number] [place] [address] Aug, [facility] [address] [address] Aug, [facility] [id number] [place] [address] Aug, 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 ; Hypokalemia E87.6 ; Irritable bowel K58.9 ; Essential hypertension I10 ; Pain in right shoulder M25.511 ; Seizure disorder G40.909 and Screening for lipid disorders Z13.220 [place] [address] [address] 28 Jul, 2016 Other chronic pain G89.29 and Pain in right shoulder M25.511 [facility] [id number] [place] [address] 14 Jul, 2016 Biceps muscle strain, right, subsequent encounter S46.111D [facility] [id number] [place] [address] Jul, Arm pain, right M79.601 [facility] [id number] [place] [address] Jun, [facility] [id number] [place] [address] Jun, Acute non-recurrent frontal sinusitis J01.10 [facility] [id number] [place] [address] 14 May, 2016 Generalized abdominal pain R10.84 ; Urinary tract infection without hematuria, site unspecified N39.0 ; Hypokalemia E87.6 ; Essential hypertension I10 ; Screening for lipid disorders Z13.220 ; Seizure R56.9 and Low back pain M54.5 [facility] [id number] [place] [address] Apr, [facility] [id number] [place] [address] Feb, [place] [address] [address] Jan, [place] [address] [address] Dec, 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 ; Hypokalemia E87.6 ; Irritable bowel K58.9 and Nausea R11.0 [facility] [id number] [place] [address] Dec, Generalized abdominal pain R10.84 [place] [address] [address] Nov, [facility] [id number] [place] [address] Aug, Acute bronchitis J20.9 [facility] [id number] [place] [address] Aug, [facility] [id number] [place] [address] 08 Aug, 2015 Low back pain M54.5 ; Hypokalemia E87.6 ; Chronic migraine without aura with status migrainosus, not intractable G43.701 ; Tremor, hereditary, benign G25.0 ; Irritable bowel K58.9 ; Essential hypertension I10 and Seizure R56.9 [place] [address] [address] 07 Aug, 2015 [place] [address] [address] Jul, [place] [address] [place] [address] 03 Jul, 2015 Low back pain M54.5 ; Hypokalemia E87.6 ; Chronic migraine without aura with status migrainosus, not intractable G43.701 ; Tremor, hereditary, benign G25.0 ; Irritable bowel K58.9 ; Essential hypertension I10 and Seizure R56.9 [facility] [place] [id number] [place] [address] Jun, Hypokalemia E87.6 [place] [address] [address] 15 Jun, 2015 ADD (attention deficit disorder) without hyperactivity F90.0 ; Generalized anxiety disorder F41.1 and Major depressive disorder, recurrent episode, moderate F33.1 [facility] [id number] [place] [address] Jun, Low back pain M54.5 ; Hypokalemia E87.6 ; Chronic migraine without aura with status migrainosus, not intractable G43.701 ; Tremor, hereditary, benign G25.0 ; Irritable bowel K58.9 ; Essential hypertension I10 and Seizure R56.9 [facility] [id number] [place] [address] Jun, [facility] [id number] [place] [address] May, [facility] [id number] [place] [address] May, Low back pain M54.5 ; Hypokalemia E87.6 ; Chronic migraine without aura with status migrainosus, not intractable G43.701 ; Tremor, hereditary, benign G25.0 ; Irritable bowel K58.9 ; Essential hypertension I10 ; Seizure R56.9 and Tinea capitis B35.0 [facility] [id number] [place] [address] May, Low back pain M54.5 ; Hypokalemia E87.6 ; Chronic migraine without aura with status migrainosus, not intractable G43.701 ; Tremor, hereditary, benign G25.0 ; Irritable bowel K58.9 ; Essential hypertension I10 ; Seizure R56.9 ; Otitis media, left H66.92 and Dysuria 788.1 [facility] [id number] [place] [address] 14 May, 2015 Tooth pain K08.8 [place] [facility] [address] [address] May, [facility] [address] [address] May, Low back pain M54.5 ; Hypokalemia E87.6 ; Chronic migraine without aura with status migrainosus, not intractable G43.701 ; Tremor, hereditary, benign G25.0 ; Irritable bowel K58.9 and Essential hypertension I10 [place] [address] [address] Apr, Low back pain M54.5 ; Hypokalemia E87.6 ; Chronic migraine without aura with status migrainosus, not intractable G43.701 ; Tremor, hereditary, benign G25.0 and Irritable bowel K58.9 [facility] [place] [id number] [place] [address] Apr, Low back pain M54.5 [facility] [id number] [place] [address] Mar, [facility] [address] [address] Mar, Irritable bowel syndrome with diarrhea K58.0 [facility] [address] [address] Mar, [facility] [place] [id number] [place] [address] Feb, [facility] [id number] [place] [address] 08 Feb, 2015 [facility] [id number] [place] [address] Feb, Irritable bowel syndrome 564.1 ; Lumbago 724.2 and Cervical pain (neck) 723.1 [facility] [id number] [place] [address] Dec, Major depressive disorder, recurrent episode, moderate 296.32 and Generalized anxiety disorder 300.02 [facility] [id number] [place] [address] Nov, [facility] [address] [address] Nov, Major depressive disorder, recurrent episode, moderate 296.32 [facility] [id number] [place] [address] Nov, Constipation 564.00 ; Nausea & vomiting 787.01 and Abdominal pain 789.00 [facility] [id number] [place] [address] Nov, [facility] [id number] [place] [address] October, [facility] [id number] [place] [address] October, [facility] [id number] [place] [address] October, [facility] [id number] [place] [address] October, [facility] [id number] [place] [address] Sep, Dysuria 788.1 [facility] [id number] [place] [address] Sep, [facility] [address] [place] [address] 30 Sep, 2014 [facility] [place] [facility] [address] [id number] [place] [address] 14 Sep, 2014 [facility] [place] [facility] [address] [id number] [place] [address] 13 Sep, 2014 [facility] [place] [facility] [address] [id number] [place] [address] 30 Aug, 2014 [facility] [place] [facility] [address] [id number] [place] [address] 30 Aug, 2014 [facility] [place] [facility] [address] [id number] [place] [address] Aug, [facility] [place] [facility] [address] [id number] [place] [address] Aug, [facility] [place] [facility] [address] [id number] [place] [address] Aug, [facility] [place] [facility] [address] [id number] [place] [address] Aug, [facility] [place] [facility] [address] [id number] [place] [address] Aug, [facility] [place] [facility] [address] [id number] [place] [address] Aug, [facility] [place] [facility] [address] [id number] [place] [address] Aug, [facility] [place] [facility] [address] [id number] [place] [address] Aug, [facility] [place] [facility] [address] [id number] [place] [address] Jun, [facility] [place] [facility] [address] [id number] [place] [address] Jun, [facility] [place] [facility] [address] [id number] [place] [address] Jun, [facility] [place] [facility] [address] [id number] [place] [address] Jun, [facility] [place] [facility] [address] [id number] [place] [address] May, [facility] [place] [facility] [address] [id number] [place] [address] May, [facility] [place] [facility] [address] [id number] [place] [address] May, [facility] [place] [facility] [address] [id number] [place] [address] May, [facility] [place] [facility] [address] [id number] [place] [address] May, [facility] [place] [facility] [address] [id number] [place] [address] May, [facility] [place] [facility] [address] [id number] [place] [address] May, [facility] [place] [facility] [address] [id number] [place] [address] May, [facility] [place] [facility] [address] [id number] [place] [address] Mar, [facility] [place] [facility] [address] [id number] [place] [address] Mar, [facility] [place] [facility] [address] [id number] [place] [address] Mar, [facility] [place] [facility] [address] [id number] [place] [address] Mar, [facility] [place] [facility] [address] [id number] [place] [address] Mar, [facility] [place] [facility] [address] [id number] [place] [address] Mar, [facility] [place] [facility] [address] [id number] [place] [address] 14 Mar, 2014 [facility] [place] [facility] [address] [id number] [place] [address] 14 Mar, 2014 [facility] [place] [facility] [address] [id number] [place] [address] Mar, [facility] [place] [facility] [address] [id number] [place] [address] Mar, [facility] [place] [facility] [address] [id number] [place] [address] Mar, [facility] [place] [facility] [address] [id number] [place] [address] Mar, [facility] [place] [facility] [address] [id number] [place] [address] 24 Feb, 2014 [facility] [place] [facility] [address] [id number] [place] [address] 24 Feb, 2014 [facility] [place] [facility] [address] [id number] [place] [address] Feb, [facility] [place] [facility] [address] [id number] [place] [address] Feb, [facility] [place] [facility] [address] [id number] [place] [address] Feb, [facility] [place] [facility] [address] [id number] [place] [address] Feb, [facility] [place] [facility] [address] [id number] [address] Jan, [facility] [place] [facility] [address] [id number] [place] [address] Jan, [facility] [place] [facility] [address] [id number] [place] [address] Jan, [facility] [place] [facility] [address] [id number] [place] [address] Jan, [facility] [place] [facility] [address] [id number] [place] [address] Jan, [facility] [place] [facility] [address] [id number] [place] [address] Jan, [facility] [place] [facility] [address] [id number] [place] [address] Jan, [facility] [place] [facility] [address] [id number] [place] [address] Jan, [facility] [place] [facility] [address] [id number] [place] [address] Dec, [facility] [place] [facility] [address] [id number] [place] [address] Dec, [facility] [place] [facility] [address] [id number] [place] [address] Dec, [facility] [place] [facility] [address] [id number] [place] [address] Dec, [facility] [place] [facility] [address] [id number] [place] [address] Dec, [facility] [place] [facility] [address] [id number] [place] [address] Dec, [facility] [place] [facility] [address] [id number] [place] [address] Dec, [facility] [place] [facility] [address] [id number] [place] [address] Dec, [facility] [place] [facility] [address] [id number] [place] [address] October, [facility] [place] [facility] [address] [id number] [place] [address] October, [facility] [place] [facility] [address] [id number] [place] [address] Sep, [facility] [place] [facility] [address] [id number] [place] [address] Sep, [facility] [place] [facility] [address] [id number] [place] [address] Sep, [facility] [place] [facility] [address] [id number] [place] [address] Sep, [facility] [place] [facility] [address] [id number] [place] [address] Sep, [facility] [place] [facility] [address] [id number] [place] [address] Sep, [facility] [place] [facility] [address] [id number] [place] [address] Sep, [facility] [place] [facility] [address] [id number] [place] [address] Sep, [facility] [place] [facility] [address] [id number] [place] [address] Sep, [facility] [place] [facility] [address] [id number] [place] [address] Sep, [facility] [place] [facility] [address] [id number] [place] [address] Sep, [facility] [place] [facility] [address] [id number] [place] [address] Sep, [facility] [place] [facility] [address] [id number] [place] [address] Aug, [facility] [place] [facility] [address] [id number] [place] [address] Aug, [facility] [place] [facility] [address] [id number] [place] [address] Aug, [facility] [place] [facility] [address] [id number] [place] [address] Jun, [facility] [place] [facility] [address] [id number] [place] [address] Jun, [facility] [place] [facility] [address] [id number] [address] Jun, [facility] [place] [facility] [address] [id number] [place] [address] Jun, [facility] [place] [facility] [address] [id number] [place] [address] Jun, [facility] [place] [facility] [address] [id number] [place] [address] Jun, [facility] [place] [facility] [address] [id number] [place] [address] Jun, [facility] [place] [facility] [address] [id number] [place] [address] Jun, [facility] [place] [facility] [address] [id number] [place] [address] Jun, [facility] [place] [facility] [address] [id number] [place] [address] Jun, [facility] [place] [facility] [address] [id number] [place] [address] May, [facility] [place] [facility] [address] [id number] [place] [address] May, [facility] [place] [facility] [address] [id number] [place] [address] May, [facility] [place] [facility] [address] [id number] [place] [address] May, [facility] [place] [facility] [address] [id number] [place] [address] Apr, [facility] [place] [facility] [address] [id number] [place] [address] Apr, [facility] [place] [facility] [address] [id number] [place] [address] Apr, [facility] [place] [facility] [address] [id number] [place] [address] Apr, [facility] [place] [facility] [address] [id number] [place] [address] Apr, [facility] [place] [facility] [address] [id number] [place] [address] Apr, [facility] [place] [facility] [address] [id number] [place] [address] Apr, [facility] [place] [facility] [address] [id number] [place] [address] Apr, [facility] [place] [facility] [address] [id number] [place] [address] Mar, [facility] [place] [facility] [address] [id number] [place] [address] Mar, [facility] [place] [facility] [address] [id number] [place] [address] Mar, [facility] [place] [facility] [address] [id number] [place] [address] Mar, [facility] [place] [facility] [address] [id number] [place] [address] Mar, [facility] [place] [facility] [address] [id number] [place] [address] Feb, [facility] [place] [facility] [address] [id number] [place] [address] Feb, [facility] [place] [facility] [address] [id number] [place] [address] Feb, [facility] [place] [facility] [address] [id number] [place] [address] Feb, [facility] [place] [facility] [address] [id number] [place] [address] Feb, [facility] [place] [facility] [address] [id number] [place] [address] Jan, [facility] [place] [facility] [address] [id number] [place] [address] Jan, [facility] [address] [id number] [place] [address] Nov, [facility] [place] [facility] [address] [id number] [place] [address] Nov, [facility] [address] [id number] [place] [address] Nov, [facility] [place] [facility] [address] [id number] [place] [address] Nov, [facility] [address] [id number] [place] [address] October, [facility] [place] [facility] [address] [id number] [place] [address] Sep, [facility] [address] [id number] [place] [address] Aug, [facility] [place] [facility] [address] [id number] [place] [address] Aug, [facility] [address] [id number] [place] [address] Aug, [facility] [place] [facility] [address] [id number] [place] [address] Aug, [facility] [address] [id number] [place] [address] Jul, [facility] [place] [facility] [address] [id number] [place] [address] Jun, [facility] [place] [facility] [address] [id number] [place] [address] Jun, [facility] [place] [facility] [address] [id number] [place] [address] May, [facility] [place] [facility] [address] [id number] [place] [address] May, [facility] [place] [facility] [address] [id number] [place] [id number] Mar, 2011 [facility] [place] [facility] [address] [id number] [place] [address] Mar, 2011 [facility] [place] [facility] [address] [id number] [place] [address] Mar, 2011 [facility] [place] [facility] [address] [id number] [place] [address] Mar, [facility] [place] [facility] [address] [id number] [place] [address] Mar, 2011 [facility] [place] [facility] [address] [id number] [place] [address] Mar, 2011 [facility] [place] [facility] [address] [id number] [place] [address] Mar, 2011 [facility] [place] [facility] [address] [id number] [place] [address] Mar, 2011 [facility] [place] [facility] [address] [id number] [place] [address] Mar, [facility] [place] [facility] [address] [id number] [place] [address] Mar, 2011 [facility] [place] [facility] [address] [facility] [id number] [place] [address] 20 Mar, 2011 [facility] [place] [facility] [address] [id number] [place] [address] 17 Mar, 2011 [facility] [place] [facility] [address] [id number] [place] [address] 17 Mar, 2011 [facility] [place] [facility] [address] [id number] [place] [address] 15 Mar, 2011 [facility] [place] [facility] [address] [facility] [id number] [place] [address] 15 Mar, 2011 [facility] [place] [facility] [address] [facility] [id number] [place] [address] 15 Mar, 2011 [facility] [place] [facility] [address] [id number] [place] [address] 15 Mar, 2012 [facility] [place] [facility] [address] [id number] [place] [address] 11 Mar, 2012 [facility] [place] [facility] [address] [id number] [place] [address] Mar, [facility] [place] [facility] [address] [id number] [place] [address] Mar, [facility] [place] [facility] [address] [id number] [place] [address] 08 Mar, 2012 [facility] [place] [facility] [address] [id number] [place] [address] 03 Mar, 2012 [facility] [place] [facility] [address] [id number] [place] [address] Mar, [facility] [place] [facility] [address] [id number] [place] [address] 19 Feb, 2012 [facility] [place] [facility] [address] [id number] [place] [address] 18 Sep, 2011 [facility] [place] [facility] [address] [id number] [place] [address] 17 Sep, 2011 [facility] [place] [facility] [address] [id number] [place] [address] 14 Sep, 2011 [facility] [place] [facility] [address] [id number] [place] [address] 14 Sep, 2011 [facility] [place] [facility] [address] [id number] [place] [address] 12 Sep, 2011 [facility] [place] [facility] [address] [id number] [place] [address] 10 Feb, 2011 [facility] [place] [facility] [address] [id number] [place] [address] 31 Jan, 2012 [facility] [place] [facility] [address] [id number] [place] [address] Jan, [facility] [place] [facility] [address] [id number] [place] [address] Jan, [facility] [place] [facility] [address] [id number] [place] [address] Jan, [facility] [place] [facility] [address] [id number] [place] [address] Jan, [facility] [place] [facility] [address] [id number] [place] [address] Jan, [facility] [place] [facility] [address] [id number] [place] [address] Jan, [facility] [place] [facility] [address] [id number] [place] [address] Jan, [facility] [place] [facility] [address] [id number] [place] [address] Jan, [facility] [place] [facility] [address] [id number] [place] [address] Jan, [facility] [place] [facility] [address] [id number] [place] [address] Dec, [facility] [place] [facility] [address] [id number] [place] [address] Dec, [facility] [place] [facility] [address] [id number] [place] [address] Dec, [facility] [place] [facility] [address] [id number] [place] [address] Dec, [facility] [place] [facility] [address] [id number] [place] [address] Dec, [facility] [place] [facility] [address] [id number] [place] [address] Dec, [facility] [place] [facility] [address] [id number] [place] [address] Dec, [facility] [place] [facility] [id number] [address] 14 Dec, 2011 [facility] [id number] [address] Dec, [facility] [id number] [place] [address] Dec, [facility] [id number] [place] [address] 06 Dec, 2011 [facility] [id number] [address] 29 Nov, 2011 [facility] [id number] [place] [address] 27 Nov, 2011 [facility] [id number] [place] [address] Nov, [facility] [id number] [place] [address] Nov, [facility] [id number] [place] [address] Nov, [facility] [id number] [place] [address] Nov, [facility] [id number] [place] [address] Nov, [facility] [id number] [place] [address] Nov, [facility] [id number] [address] Nov, [facility] [id number] [place] [address] 05 Nov, 2011 [facility] [id number] [place] [address] October, IMMUNIZATIONS No Known Immunizations SOCIAL HISTORY Never Assessed REASON FOR VISIT EMR-[facility] [place] PLAN OF CARE VITAL SIGNS MEDICATIONS No Known Medications RESULTS No Results PROCEDURES No Known [...] hysterectomy-total 2005 Surgical History lower GI [facility] -not sure results Surgical History EGD Hospitalization History Hospitalization for surgery Hospitalization History [facility]- Went through the ER and was hosp for 3 days- GI related 10/2014 Hospitalization History [facility]--multiple seizures 03/2015 Hospitalization History infection in colon, seizures 05/2015 Hospitalization History Hypokalemia and high blood pressure 06/15/2015 Hospitalization History ER for vomiting- thought she had hypokalemia 03/2017 Hospitalization History [facility] 09/2018
--- OUTSIDE RECORDS SUMMARY | 2018-11-18 20:18 | XMS REPORT ---
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 Name Role Phone Migration, Doctor Unavailable Unavailable PROBLEMS Type Condition ICD9-CM Code YSB00-WT Code Onset Dates Condition Status SNOMED Code Problem Elevated liver enzymes R74.8 Active 009336791 Problem Abnormal glucose R73.09 Active 257112678 Problem Hyperlipidemia LDL goal <100 E78.5 Active 91090592 Problem Hypokalemia E87.6 Active 00666642 Problem Major depressive disorder, recurrent episode, moderate F33.1 Active 586247359 Problem Tremor, hereditary, benign G25.0 Active 158592951 Problem Chronic migraine without aura with status migrainosus, not intractable G43.701 Active 998601456 Problem 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 Active 44430743 Problem Other chronic pain G89.29 Active 87903023 Problem Seizure disorder G40.909 Active 973508293 Problem Other chronic pain G89.29 Active 24939224 Problem Essential hypertension I10 Active 40579564 Problem Reflux gastritis K29.60 Active 62363885 Problem Irritable bowel K58.9 Active 16678209 Problem Primary insomnia F51.01 Active 4436948 Problem Moderate persistent asthma without complication J45.40 Active 895803052 Problem Moderate persistent asthma with exacerbation J45.41 Active 224748127 Problem Intractable chronic migraine without aura and with status migrainosus G43.711 Active 256541153 ALLERGIES No Information ENCOUNTERS Encounter Location Date Diagnosis [facility] [address] [id number] [address] Sep, [facility] [address] [id number], [place] [address] Sep, Viral gastroenteritis A08.4 [facility] [address] [id number], [place] [address] Aug, Headache R51 ; Viral upper respiratory tract infection J06.9 and Nausea R11.0 [facility] [address] [id number], [place] [address] Jun, Reflux gastritis K29.60 [facility] [id number] [place] [address] Jun, [facility] [id number] [place] [address] May, [facility] [address] [address] May, [facility] [id number] [place] [address] Apr, Bowel habit changes R19.4 and Acute cystitis without hematuria N30.00 [facility] [id number] [place] [address] Apr, Pain in right shoulder M25.511 [facility] [address] [address] Apr, [facility] [id number] [place] [address] Mar, [facility] [id number] [place] [address] Mar, [facility] [id number] [place] [address] Mar, [facility] [id number] [place] [address] Mar, [facility] [id number] [place] [address] 14 Feb, 2018 [facility] [id number] [place] [address] 10 Feb, 2018 [facility] [id number] [place] [address] 05 Feb, 2018 [facility] [id number] [place] [address] Jan, [facility] [id number] [place] [address] Dec, [place] [address] [address] Dec, Other chronic pain G89.29 ; Pain in right shoulder M25.511 and Liver enzyme elevation R74.8 [place] [address] [address] Nov, Other chronic pain G89.29 and Pain in right shoulder M25.511 [place] [address] [address] October, [facility] [address] [address] October, Right shoulder pain, unspecified chronicity M25.511 [place] [address] [address] Aug, Elevated liver enzymes R74.8 and Hyperlipidemia LDL goal <100 E78.5 [place] [address] [address] Aug, [place] [id number] [place] [address] Jul, [place] [id number] [place] [address] Jul, Intractable chronic migraine without aura and with status migrainosus G43.711 ; Fever, unspecified fever cause R50.9 and Elevated liver enzymes R74.8 [place] [id number] [place] [address] Jun, Difficulty urinating R39.198 and Moderate persistent asthma with exacerbation J45.41 [place] [address] [address] Jun, [place] [id number] [place] [address] Jun, Moderate persistent asthma with exacerbation J45.41 [place] [address] [address] May, Elevated liver enzymes R74.8 and Hyperlipidemia LDL goal <100 E78.5 [place] [address] [address] May, Elevated lipids E78.5 [place] [address] [address] Apr, Elevated liver enzymes R74.8 [place] [address] [address] Apr, Elevated liver enzymes R74.8 [place] [id number] [place] [address] Apr, Superior glenoid labrum lesion of right shoulder, subsequent encounter S43.431D [place] [id number] [place] [address] Apr, Hypokalemia E87.6 ; Major depressive disorder, recurrent episode, moderate F33.1 ; Other abnormalities of breathing R06.89 and Dyspnea, unspecified R06.00 [facility] [id number] [place] [address] Mar, Moderate persistent asthma without complication J45.40 [place] [id number] [place] [address] Mar, Impingement syndrome of right shoulder M75.41 [place] [id number] [place] [address] Jan, [place] [id number] [place] [address] Jan, Chronic migraine without aura with status migrainosus, not intractable G43.701 ; Essential hypertension I10 ; Irritable bowel K58.9 ; Primary insomnia F51.01 and Hypokalemia E87.6 [facility] [id number] [place] [address] Dec, [facility] [id number] [place] [address] Dec, Pain in right shoulder M25.511 [facility] [id number] [place] [address] Dec, Essential hypertension I10 [facility] [id number] [place] [address] Dec, [facility] [id number] [place] [address] Nov, Essential hypertension I10 [facility] [id number] [place] [address] 14 Nov, 2016 Pain in right shoulder M25.511 [facility] [id number] [place] [address] Nov, Pain in right shoulder M25.511 [facility] [id number] [place] [address] October, [facility] [id number] [place] [address] October, Pain in right shoulder M25.511 [facility] [id number] [place] [address] Sep, Arm pain, right M79.601 [facility] [address] [id number] [address] Sep, [facility] [id number] [place] [address] Sep, Abnormal glucose R73.09 and Elevated lipids E78.5 [facility] [id number] [place] [address] Sep, Abnormal glucose R73.09 and Elevated lipids E78.5 [place] [id number] [place] [address] Aug, [place] [id number] [place] [address] Aug, [place] [id number] [place] [address] Aug, [place] [address] [address] Aug, 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 ; Hypokalemia E87.6 ; Irritable bowel K58.9 ; Essential hypertension I10 ; Pain in right shoulder M25.511 ; Seizure disorder G40.909 and Screening for lipid disorders Z13.220 [place] [id number] [place] [address] Jul, Other chronic pain G89.29 and Pain in right shoulder M25.511 [place] [id number] [place] [address] 14 Jul, 2016 Biceps muscle strain, right, subsequent encounter S46.111D [facility] [place] [id number] [place] [address] 08 Jul, 2016 Arm pain, right M79.601 [place] [id number] [place] [address] Jun, [place] [id number] [place] [address] Jun, Acute non-recurrent frontal sinusitis J01.10 [place] [id number] [place] [address] 14 May, 2016 Generalized abdominal pain R10.84 ; Urinary tract infection without hematuria, site unspecified N39.0 ; Hypokalemia E87.6 ; Essential hypertension I10 ; Screening for lipid disorders Z13.220 ; Seizure R56.9 and Low back pain M54.5 [place] [id number] [place] [address] Apr, [facility] [id number] [place] [address] Feb, [facility] [id number] [place] [address] Jan, [facility] [id number] [place] [address] Dec, 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 ; Hypokalemia E87.6 ; Irritable bowel K58.9 and Nausea R11.0 [facility] [id number] [place] [address] Dec, Generalized abdominal pain R10.84 [place] [id number] [place] [address] Nov, [facility] [address] [address] Aug, Acute bronchitis J20.9 [place] [id number] [place] [address] Aug, [facility] [id number] [place] [address] Aug, Low back pain M54.5 ; Hypokalemia E87.6 ; Chronic migraine without aura with status migrainosus, not intractable G43.701 ; Tremor, hereditary, benign G25.0 ; Irritable bowel K58.9 ; Essential hypertension I10 and Seizure R56.9 [facility] [id number] [place] [address] Aug, [place] [address] [address] Jul, [facility] [id number] [place] [address] Jul, Low back pain M54.5 ; Hypokalemia E87.6 ; Chronic migraine without aura with status migrainosus, not intractable G43.701 ; Tremor, hereditary, benign G25.0 ; Irritable bowel K58.9 ; Essential hypertension I10 and Seizure R56.9 [place] [address] [address] 20 Jun, 2015 Hypokalemia E87.6 [place] [address] [address] 15 Jun, 2015 ADD (attention deficit disorder) without hyperactivity F90.0 ; Generalized anxiety disorder F41.1 and Major depressive disorder, recurrent episode, moderate F33.1 [place] [address] [address] 13 Jun, 2015 Low back pain M54.5 ; Hypokalemia E87.6 ; Chronic migraine without aura with status migrainosus, not intractable G43.701 ; Tremor, hereditary, benign G25.0 ; Irritable bowel K58.9 ; Essential hypertension I10 and Seizure R56.9 [place] [address] [address] Jun, [place] [address] [address] May, [place] [address] [address] 30 May, 2015 Low back pain M54.5 ; Hypokalemia E87.6 ; Chronic migraine without aura with status migrainosus, not intractable G43.701 ; Tremor, hereditary, benign G25.0 ; Irritable bowel K58.9 ; Essential hypertension I10 ; Seizure R56.9 and Tinea capitis B35.0 [place] [id number] [place] [address] 17 May, 2015 Low back pain M54.5 ; Hypokalemia E87.6 ; Chronic migraine without aura with status migrainosus, not intractable G43.701 ; Tremor, hereditary, benign G25.0 ; Irritable bowel K58.9 ; Essential hypertension I10 ; Seizure R56.9 ; Otitis media, left H66.92 and Dysuria 788.1 [place] [id number] [place] [address] May, Tooth pain K08.8 [place] [id number] [place] [address] May, [place] [address] [address] May, Low back pain M54.5 ; Hypokalemia E87.6 ; Chronic migraine without aura with status migrainosus, not intractable G43.701 ; Tremor, hereditary, benign G25.0 ; Irritable bowel K58.9 and Essential hypertension I10 [place] [id number] [place] [address] Apr, Low back pain M54.5 ; Hypokalemia E87.6 ; Chronic migraine without aura with status migrainosus, not intractable G43.701 ; Tremor, hereditary, benign G25.0 and Irritable bowel K58.9 [place] [id number] [place] [address] Apr, Low back pain M54.5 [place] [id number] [place] [address] Mar, [place] [address] [address] Mar, Irritable bowel syndrome with diarrhea K58.0 [place] [id number] [place] [address] Mar, [place] [id number] [place] [address] Feb, [facility] [id number] [place] [address] Feb, [place] [id number] [place] [address] Feb, Irritable bowel syndrome 564.1 ; Lumbago 724.2 and Cervical pain (neck) 723.1 [facility] [id number] [place] [address] Dec, Major depressive disorder, recurrent episode, moderate 296.32 and Generalized anxiety disorder 300.02 [facility] [id number] [place] [address] Nov, [facility] [id number] [place] [address] Nov, Major depressive disorder, recurrent episode, moderate 296.32 [facility] [id number] [place] [address] Nov, Constipation 564.00 ; Nausea & vomiting 787.01 and Abdominal pain 789.00 [facility] [id number] [place] [address] Nov, [facility] [id number] [place] [address] October, [facility] [id number] [place] [address] October, [facility] [id number] [place] [address] October, [facility] [id number] [place] [address] October, [facility] [id number] [place] [address] Sep, Dysuria 788.1 [facility] [id number] [place] [address] Sep, [facility] [id number] [place] [address] Sep, [facility] [address] [place] [address] 14 Sep, 2014 [facility] [place] [facility] [address] [id number] [place] [address] 13 Sep, 2014 [facility] [place] [facility] [address] [id number] [place] [address] 30 Aug, 2014 [facility] [place] [facility] [address] [id number] [place] [address] 30 Aug, 2014 [facility] [place] [facility] [address] [id number] [place] [address] Aug, [facility] [place] [facility] [address] [id number] [place] [address] Aug, [facility] [place] [facility] [address] [id number] [place] [address] Aug, [facility] [place] [facility] [address] [id number] [place] [address] Aug, [facility] [place] [facility] [address] [id number] [place] [address] Aug, [facility] [place] [facility] [address] [id number] [place] [address] Aug, [facility] [place] [facility] [address] [id number] [place] [address] Aug, [facility] [place] [facility] [address] [id number] [place] [address] Aug, [facility] [place] [facility] [address] [id number] [place] [address] Jun, [facility] [place] [facility] [address] [id number] [place] [address] Jun, [facility] [place] [facility] [address] [id number] [place] [address] Jun, [facility] [place] [facility] [address] [id number] [place] [address] Jun, [facility] [place] [facility] [address] [id number] [place] [address] May, [facility] [place] [facility] [address] [id number] [place] [address] May, [facility] [place] [facility] [address] [id number] [place] [address] May, [facility] [place] [facility] [address] [id number] [place] [address] May, [facility] [place] [facility] [address] [id number] [place] [address] May, [facility] [place] [facility] [address] [id number] [place] [address] May, [facility] [place] [facility] [address] [id number] [place] [address] May, [facility] [place] [facility] [address] [id number] [place] [address] May, [facility] [place] [facility] [address] [id number] [place] [address] Mar, [facility] [place] [facility] [address] [id number] [place] [address] Mar, [facility] [place] [facility] [address] [id number] [place] [address] Mar, [facility] [place] [facility] [address] [id number] [place] [address] Mar, [facility] [place] [facility] [address] [id number] [place] [address] Mar, [facility] [place] [facility] [address] [id number] [place] [address] Mar, [facility] [place] [facility] [address] [id number] [place] [address] Mar, [facility] [place] [facility] [address] [id number] [place] [address] Mar, [facility] [place] [facility] [address] [id number] [place] [address] Mar, [facility] [place] [facility] [address] [id number] [place] [address] Mar, [facility] [place] [facility] [address] [id number] [place] [address] Mar, [facility] [place] [facility] [address] [id number] [place] [address] Mar, [facility] [place] [facility] [address] [id number] [place] [address] Feb, [facility] [place] [facility] [address] [id number] [place] [address] Feb, [facility] [place] [facility] [address] [id number] [place] [address] Feb, [facility] [place] [facility] [address] [id number] [place] [address] Feb, [facility] [place] [facility] [address] [id number] [place] [address] Feb, [facility] [place] [facility] [address] [id number] [place] [address] Feb, [facility] [place] [facility] [address] [id number] [place] [address] Jan, [facility] [place] [facility] [address] [id number] [place] [address] Jan, [facility] [place] [facility] [address] [id number] [place] [address] Jan, [facility] [place] [facility] [address] [id number] [place] [address] Jan, [facility] [place] [facility] [address] [id number] [place] [address] Jan, [facility] [place] [facility] [address] [id number] [place] [address] Jan, [facility] [place] [facility] [address] [id number] [place] [address] Jan, [facility] [place] [facility] [address] [id number] [place] [address] Jan, [facility] [place] [facility] [address] [id number] [place] [address] Dec, [facility] [place] [facility] [address] [id number] [place] [address] Dec, [facility] [place] [facility] [address] [id number] [place] [address] Dec, [facility] [place] [facility] [address] [id number] [place] [address] Dec, [facility] [place] [facility] [address] [id number] [place] [address] Dec, [facility] [place] [facility] [address] [id number] [place] [address] Dec, [facility] [place] [facility] [address] [id number] [place] [address] Dec, [facility] [place] [facility] [address] [id number] [place] [address] Dec, [facility] [place] [facility] [address] [id number] [place] [address] October, [facility] [place] [facility] [address] [id number] [place] [address] October, [facility] [place] [facility] [address] [id number] [place] [address] Sep, [facility] [place] [facility] [address] [id number] [place] [address] Sep, [facility] [place] [facility] [address] [id number] [place] [address] Sep, [facility] [place] [facility] [address] [id number] [place] [address] Sep, [facility] [place] [facility] [address] [id number] [place] [address] Sep, [facility] [place] [facility] [address] [id number] [place] [address] Sep, [facility] [place] [facility] [address] [id number] [place] [address] Sep, [facility] [place] [facility] [address] [id number] [place] [address] Sep, [facility] [place] [facility] [address] [id number] [place] [address] Sep, [facility] [place] [facility] [address] [id number] [place] [address] Sep, [facility] [place] [facility] [address] [id number] [place] [address] Sep, [facility] [place] [facility] [address] [id number] [place] [address] Sep, [facility] [place] [facility] [address] [id number] [place] [address] Aug, [facility] [place] [facility] [address] [id number] [place] [address] Aug, [facility] [place] [facility] [address] [id number] [place] [address] Aug, [facility] [place] [facility] [address] [id number] [place] [address] Jun, [facility] [place] [facility] [address] [id number] [place] [address] Jun, [facility] [place] [facility] [address] [id number] [place] [address] Jun, [facility] [facility] [address] [id number], [place] [address] Jun, [facility] [address] [id number] [place] [address] Jun, [facility] [place] [facility] [address] [id number] [place] [address] Jun, [facility] [place] [facility] [address] [facility] [id number] [place] [address] Jun, [facility] [place] [facility] [address] [id number] [place] [address] Jun, [facility] [place] [facility] [address] [id number] [place] [address] Jun, [facility] [place] [facility] [address] [id number] [place] [address] Jun, [facility] [address] [facility] [id number], [place] [address] May, [facility] [address] [id number] [place] [address] May, [facility] [place] [facility] [address] [facility] [id number] [place] [address] May, [facility] [place] [address] [facility] [id number] [place] [address] May, [facility] [place] [facility] [address] [id number], [place] [address] Apr, [facility] [facility] [address] [id number], [place] [address] Apr, [facility] [address] [id number] [place] [address] Apr, [facility] [place] [address] [facility] [id number] [place] [address] Apr, [facility] [address] [facility] [id number], [place] [address] Apr, [facility] [address] [id number] [place] [address] Apr, [facility] [place] [facility] [address] [id number] [place] [address] Apr, [facility] [place] [facility] [address] [id number] [place] [address] Apr, [facility] [place] [facility] [address] [id number] [place] [address] Mar, [facility] [facility] [address] [id number] [place] [address] Mar, [facility] [place] [address] [id number] [place] [address] Mar, [facility] [address] [id number] [place] [address] Mar, [facility] [place] [address] [id number] [place] [address] Mar, [facility] [address] [id number] [place] [address] Feb, [facility] [address] [id number] [place] [address] Feb, [facility] [place] [facility] [address] [id number] [place] [address] Feb, [facility] [address] [id number] [place] [address] Feb, [facility] [place] [facility] [address] [id number] [place] [address] Feb, [facility] [place] [facility] [address] [id number] [place] [address] Jan, [facility] [facility] [address] [id number] [place] [address] Jan, [facility] [address] [id number] [place] [address] Nov, [facility] [address] [id number] [place] [address] Nov, [facility] [address] [id number] [place] [address] Nov, [facility] [address] [facility] [id number] [place] [address] Nov, [facility] [address] [id number] [place] [address] October, [facility] [address] [id number] [place] [address] Sep, [facility] [address] [id number] [place] [address] Aug, [facility] [address] [id number] [place] [address] Aug, [facility] [address] [id number], [place] [address] Aug, [facility] [address] [id number], [place] [address] Aug, [facility] [address] [facility] [id number], [place] [address] Jul, [facility] [address] [id number], [place] [address] Jun, [facility] [address] [id number], [place] [address] Jun, [facility] [address] [id number], [place] [address] May, [facility] [address] [facility] [id number], [place] [address] May, [facility] [address] [id number] [place] [id number] Mar, [facility] [address] [id number] [place] [address] Mar, [facility] [address] [id number] [place] [address] Mar, 2011 [facility] [address] [id number] [place] [address] Mar, [facility] [address] [id number] [place] [address] Mar, 2011 [facility] [address] [id number] [place] [address] Mar, [facility] [address] [id number] [place] [address] Mar, [facility] [address] [id number] [place] [address] Mar, [facility] [address] [id number] [place] [address] Mar, [facility] [address] [id number] [place] [address] Mar, [facility] [address] [id number] [place] [address] 20 Mar, 2012 [facility] [address] [id number] [place] [address] Mar, [facility] [address] [id number] [place] [address] 17 Mar, 2012 [facility] [address] [id number], [place] [address] 15 Mar, 2012 [facility] [address] [id number] [place] [address] 15 Mar, 2012 [facility] [address] [id number], [place] [address] 15 Mar, 2012 [facility] [address] [id number], [place] [address] 15 Mar, 2012 [facility] [address] [id number] [place] [address] Mar, [facility] [address] [id number] [place] [address] Mar, [facility] [address] [id number] [place] [address] Mar, [facility] [address] [id number] [place] [address] Mar, [facility] [address] [id number] [place] [address] Mar, [facility] [address] [id number] [place] [address] Mar, [facility] [address] [id number] [place] [address] 19 Feb, 2012 [facility] [address] [id number] [place] [address] 18 Feb, 2012 [facility] [address] [id number] [place] [address] 17 Feb, 2012 [facility] [facility] [address] [id number] [place] [address] 14 Feb, 2012 [facility] [address] [id number] [place] [address] 14 Feb, 2012 [facility] [address] [id number] [place] [address] 12 Feb, 2012 [facility] [address] [id number] [place] [address] 10 Feb, 2012 [facility] [address] [id number] [place] [address] 31 Jan, 2012 [facility] [address] [id number] [place] [address] 30 Jan, 2012 [facility] [address] [id number] [place] [address] Jan, [facility] [address] [id number] [place] [address] Jan, [facility] [address] [id number] [place] [address] Jan, [facility] [address] [id number] [place] [address] Jan, [facility] [address] [id number] [place] [address] Jan, [facility] [address] [id number] [place] [address] Jan, [facility] [address] [id number] [place] [address] Jan, [facility] [address] [id number] [place] [address] Jan, [facility] [address] [id number] [place] [address] Dec, [facility] [address] [id number] [place] [address] 24 Dec, 2011 [facility] [address] [id number] [place] [address] Dec, [facility] [address] [id number] [place] [address] Dec, [facility] [address] [id number] [place] [address] 18 Dec, 2011 [facility] [address] [id number] [place] [address] Dec, [facility] [address] [id number] [place] [address] 16 Dec, 2011 [facility] [address] [id number] [place] [address] 14 Dec, 2011 [facility] [id number], [place] [address] Dec, [facility] [id number], [place] [address] Dec, [facility] [id number], [place] [address] Dec, [facility] [id number], [place] [address] Nov, [facility] [id number], [place] [address] Nov, [facility] [id number] [place] [address] Nov, [facility] [id number], [place] [address] Nov, [facility] [id number] [place] [address] Nov, [facility] [id number], [place] [address] Nov, [facility] [id number], [place] [address] Nov, [facility] [id number], [place] [address] Nov, [facility] [id number], [place] [address] Nov, [facility] [address] [id number], [place] [address] Nov, [facility] [id number], [place] [address] October, IMMUNIZATIONS No Known Immunizations SOCIAL HISTORY Never Assessed REASON FOR VISIT EMR-[facility] [facility] PLAN OF CARE VITAL SIGNS MEDICATIONS [...] hysterectomy-total 2005 Surgical History lower [facility] -not sure results Surgical History EGD Hospitalization [...]
--- OUTSIDE RECORDS SUMMARY | 2018-11-18 20:19 | XMS REPORT ---
Author Author Migration, Doctor Organization [facility] Address Unknown Phone Unavailable Care Team Providers Care Information Technology Analyst Name Role Phone Migration, Doctor Unavailable Unavailable PROBLEMS Type Condition ICD9-CM Code [id number] Code Onset Dates Condition Status SNOMED Code Problem Elevated liver enzymes R74.8 Active 426695144 Problem Abnormal glucose R73.09 Active 030768071 Problem Hyperlipidemia LDL goal <100 E78.5 Active 64726958 Problem Hypokalemia E87.6 Active 00395887 Problem Major depressive disorder, recurrent episode, moderate F33.1 Active 154318611 Problem Tremor, hereditary, benign G25.0 Active 476829690 Problem Chronic migraine without aura with status migrainosus, not intractable G43.701 Active 308058750 Problem 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 Active 78706168 Problem Other chronic pain G89.29 Active 83913444 Problem Seizure disorder G40.909 Active 722513603 Problem Other chronic pain G89.29 Active 29602261 Problem Essential hypertension I10 Active 84756567 Problem Reflux gastritis K29.60 Active 42193853 Problem Irritable bowel K58.9 Active 62283282 Problem Primary insomnia F51.01 Active 5035906 Problem Moderate persistent asthma without complication J45.40 Active 402158565 Problem Moderate persistent asthma with exacerbation J45.41 Active 899470718 Problem Intractable chronic migraine without aura and with status migrainosus G43.711 Active 294226775 ALLERGIES No Information ENCOUNTERS Encounter Location Date Diagnosis [facility] [address] [facility] [id number] [address] Sep, [facility] [address] [id number] [address] Sep, Viral gastroenteritis A08.4 [facility] [address] [id number] [address] Aug, Headache R51 ; Viral upper respiratory tract infection J06.9 and Nausea R11.0 [facility] [address] [id number] [address] Jun, Reflux gastritis K29.60 [facility] [id number] [place] [address] Jun, [facility] [id number] [place] [address] May, [facility] [address] [address] May, [facility] [id number] [place] [address] Apr, Bowel habit changes R19.4 and Acute cystitis without hematuria N30.00 [facility] [id number] [place] [address] Apr, Pain in right shoulder M25.511 [facility] [address] [address] Apr, [facility] [id number] [place] [address] Mar, [facility] [id number] [place] [address] Mar, [facility] [id number] [place] [address] Mar, [facility] [id number] [place] [address] Mar, [facility] [id number] [place] [address] 14 Feb, 2018 [facility] [id number] [place] [address] 10 Feb, 2018 [facility] [id number] [place] [address] 05 Feb, 2018 [facility] [id number] [place] [address] Jan, [facility] [id number] [place] [address] Dec, [place] [address] [address] Dec, Other chronic pain G89.29 ; Pain in right shoulder M25.511 and Liver enzyme elevation R74.8 [place] [address] [address] Nov, Other chronic pain G89.29 and Pain in right shoulder M25.511 [place] [address] [address] October, [facility] [address] [address] October, Right shoulder pain, unspecified chronicity M25.511 [place] [address] [address] Aug, Elevated liver enzymes R74.8 and Hyperlipidemia LDL goal <100 E78.5 [place] [address] [address] Aug, [place] [id number] [place] [address] Jul, [place] [id number] [place] [address] Jul, Intractable chronic migraine without aura and with status migrainosus G43.711 ; Fever, unspecified fever cause R50.9 and Elevated liver enzymes R74.8 [place] [id number] [place] [address] Jun, Difficulty urinating R39.198 and Moderate persistent asthma with exacerbation J45.41 [place] [address] [address] Jun, [place] [id number] [place] [address] Jun, Moderate persistent asthma with exacerbation J45.41 [place] [address] [address] May, Elevated liver enzymes R74.8 and Hyperlipidemia LDL goal <100 E78.5 [place] [address] [address] May, Elevated lipids E78.5 [place] [address] [address] Apr, Elevated liver enzymes R74.8 [place] [address] [address] Apr, Elevated liver enzymes R74.8 [place] [id number] [place] [address] Apr, Superior glenoid labrum lesion of right shoulder, subsequent encounter S43.431D [place] [id number] [place] [address] Apr, Hypokalemia E87.6 ; Major depressive disorder, recurrent episode, moderate F33.1 ; Other abnormalities of breathing R06.89 and Dyspnea, unspecified R06.00 [facility] [id number] [place] [address] Mar, Moderate persistent asthma without complication J45.40 [place] [id number] [place] [address] Mar, Impingement syndrome of right shoulder M75.41 [place] [id number] [place] [address] Jan, [place] [id number] [place] [address] Jan, Chronic migraine without aura with status migrainosus, not intractable G43.701 ; Essential hypertension I10 ; Irritable bowel K58.9 ; Primary insomnia F51.01 and Hypokalemia E87.6 [facility] [id number] [place] [address] Dec, [facility] [id number] [place] [address] Dec, Pain in right shoulder M25.511 [facility] [id number] [place] [address] Dec, Essential hypertension I10 [facility] [id number] [place] [address] Dec, [facility] [id number] [place] [address] Nov, Essential hypertension I10 [facility] [id number] [place] [address] 14 Nov, 2016 Pain in right shoulder M25.511 [facility] [id number] [place] [address] Nov, Pain in right shoulder M25.511 [facility] [id number] [place] [address] October, [facility] [id number] [place] [address] October, Pain in right shoulder M25.511 [facility] [id number] [place] [address] Sep, Arm pain, right M79.601 [facility] [id number] [address] Sep, [facility] [id number] [place] [address] Sep, Abnormal glucose R73.09 and Elevated lipids E78.5 [facility] [id number] [place] [address] Sep, Abnormal glucose R73.09 and Elevated lipids E78.5 [place] [id number] [place] [address] Aug, [place] [id number] [place] [address] Aug, [place] [id number] [place] [address] Aug, [place] [address] [address] Aug, 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 ; Hypokalemia E87.6 ; Irritable bowel K58.9 ; Essential hypertension I10 ; Pain in right shoulder M25.511 ; Seizure disorder G40.909 and Screening for lipid disorders Z13.220 [place] [id number] [place] [address] Jul, Other chronic pain G89.29 and Pain in right shoulder M25.511 [place] [id number] [place] [address] 14 Jul, 2016 Biceps muscle strain, right, subsequent encounter S46.111D [facility] [place] [id number] [place] [address] 08 Jul, 2016 Arm pain, right M79.601 [place] [id number] [place] [address] Jun, [place] [id number] [place] [address] Jun, Acute non-recurrent frontal sinusitis J01.10 [place] [id number] [place] [address] 14 May, 2016 Generalized abdominal pain R10.84 ; Urinary tract infection without hematuria, site unspecified N39.0 ; Hypokalemia E87.6 ; Essential hypertension I10 ; Screening for lipid disorders Z13.220 ; Seizure R56.9 and Low back pain M54.5 [place] [address] [place] [address] Apr, [facility] [id number] [place] [address] Feb, [facility] [id number] [place] [address] Jan, [facility] [id number] [place] [address] Dec, 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 ; Hypokalemia E87.6 ; Irritable bowel K58.9 and Nausea R11.0 [facility] [id number] [place] [address] Dec, Generalized abdominal pain R10.84 [place] [id number] [place] [address] Nov, [facility] [address] [address] Aug, Acute bronchitis J20.9 [place] [id number] [place] [address] Aug, [facility] [id number] [place] [address] Aug, Low back pain M54.5 ; Hypokalemia E87.6 ; Chronic migraine without aura with status migrainosus, not intractable G43.701 ; Tremor, hereditary, benign G25.0 ; Irritable bowel K58.9 ; Essential hypertension I10 and Seizure R56.9 [facility] [id number] [place] [address] Aug, [place] [address] [address] Jul, [facility] [id number] [place] [address] Jul, Low back pain M54.5 ; Hypokalemia E87.6 ; Chronic migraine without aura with status migrainosus, not intractable G43.701 ; Tremor, hereditary, benign G25.0 ; Irritable bowel K58.9 ; Essential hypertension I10 and Seizure R56.9 [place] [address] [address] 20 Jun, 2015 Hypokalemia E87.6 [place] [address] [address] 15 Jun, 2015 ADD (attention deficit disorder) without hyperactivity F90.0 ; Generalized anxiety disorder F41.1 and Major depressive disorder, recurrent episode, moderate F33.1 [place] [address] [address] 13 Jun, 2015 Low back pain M54.5 ; Hypokalemia E87.6 ; Chronic migraine without aura with status migrainosus, not intractable G43.701 ; Tremor, hereditary, benign G25.0 ; Irritable bowel K58.9 ; Essential hypertension I10 and Seizure R56.9 [place] [address] [address] Jun, [place] [address] [address] May, [place] [address] [address] 30 May, 2015 Low back pain M54.5 ; Hypokalemia E87.6 ; Chronic migraine without aura with status migrainosus, not intractable G43.701 ; Tremor, hereditary, benign G25.0 ; Irritable bowel K58.9 ; Essential hypertension I10 ; Seizure R56.9 and Tinea capitis B35.0 [place] [id number] [place] [address] 17 May, 2015 Low back pain M54.5 ; Hypokalemia E87.6 ; Chronic migraine without aura with status migrainosus, not intractable G43.701 ; Tremor, hereditary, benign G25.0 ; Irritable bowel K58.9 ; Essential hypertension I10 ; Seizure R56.9 ; Otitis media, left H66.92 and Dysuria 788.1 [place] [id number] [place] [address] May, Tooth pain K08.8 [place] [id number] [place] [address] May, [place] [address] [address] May, Low back pain M54.5 ; Hypokalemia E87.6 ; Chronic migraine without aura with status migrainosus, not intractable G43.701 ; Tremor, hereditary, benign G25.0 ; Irritable bowel K58.9 and Essential hypertension I10 [place] [id number] [place] [address] Apr, Low back pain M54.5 ; Hypokalemia E87.6 ; Chronic migraine without aura with status migrainosus, not intractable G43.701 ; Tremor, hereditary, benign G25.0 and Irritable bowel K58.9 [place] [id number] [place] [address] Apr, Low back pain M54.5 [place] [id number] [place] [address] Mar, [place] [address] [address] Mar, Irritable bowel syndrome with diarrhea K58.0 [place] [id number] [place] [address] Mar, [place] [id number] [place] [address] Feb, [facility] [id number] [place] [address] Feb, [place] [id number] [place] [address] Feb, Irritable bowel syndrome 564.1 ; Lumbago 724.2 and Cervical pain (neck) 723.1 [facility] [id number] [place] [address] Dec, Major depressive disorder, recurrent episode, moderate 296.32 and Generalized anxiety disorder 300.02 [facility] [id number] [place] [address] Nov, [facility] [id number] [place] [address] Nov, Major depressive disorder, recurrent episode, moderate 296.32 [facility] [id number] [place] [address] Nov, Constipation 564.00 ; Nausea & vomiting 787.01 and Abdominal pain 789.00 [facility] [id number] [place] [address] Nov, [facility] [id number] [place] [address] October, [facility] [id number] [place] [address] October, [facility] [id number] [place] [address] October, [facility] [id number] [place] [address] October, [facility] [id number] [place] [address] Sep, Dysuria 788.1 [facility] [id number] [place] [address] Sep, [facility] [id number] [place] [address] Sep, [facility] [address] [place] [address] 14 Sep, 2014 [facility] [place] [facility] [address] [id number] [place] [address] 13 Sep, 2014 [facility] [place] [facility] [address] [id number] [place] [address] 30 Aug, 2014 [facility] [place] [facility] [address] [id number] [place] [address] 30 Aug, 2014 [facility] [place] [facility] [address] [id number] [place] [address] Aug, [facility] [place] [facility] [address] [id number] [place] [address] Aug, [facility] [place] [facility] [address] [id number] [place] [address] Aug, [facility] [place] [facility] [address] [id number] [place] [address] Aug, [facility] [place] [facility] [address] [id number] [place] [address] Aug, [facility] [place] [facility] [address] [id number] [place] [address] Aug, [facility] [place] [facility] [address] [id number] [place] [address] Aug, [facility] [place] [facility] [address] [id number] [place] [address] Aug, [facility] [place] [facility] [address] [id number] [place] [address] Jun, [facility] [place] [facility] [address] [id number] [place] [address] Jun, [facility] [place] [facility] [address] [id number] [place] [address] Jun, [facility] [place] [facility] [address] [id number] [place] [address] Jun, [facility] [place] [facility] [address] [id number] [place] [address] May, [facility] [place] [facility] [address] [id number] [place] [address] May, [facility] [place] [facility] [address] [id number] [place] [address] May, [facility] [place] [facility] [address] [id number] [place] [address] May, [facility] [place] [facility] [address] [id number] [place] [address] May, [facility] [place] [facility] [address] [id number] [place] [address] May, [facility] [place] [facility] [address] [id number] [place] [address] May, [facility] [place] [facility] [address] [id number] [place] [address] May, [facility] [place] [facility] [address] [id number] [place] [address] Mar, [facility] [place] [facility] [address] [id number] [place] [address] Mar, [facility] [place] [facility] [address] [id number] [place] [address] Mar, [facility] [place] [facility] [address] [id number] [place] [address] Mar, [facility] [place] [facility] [address] [id number] [place] [address] Mar, [facility] [place] [facility] [address] [id number] [place] [address] Mar, [facility] [place] [facility] [address] [id number] [place] [address] Mar, [facility] [place] [facility] [address] [id number] [place] [address] Mar, [facility] [place] [facility] [address] [id number] [place] [address] Mar, [facility] [place] [facility] [address] [id number] [place] [address] Mar, [facility] [place] [facility] [address] [id number] [place] [address] Mar, [facility] [place] [facility] [address] [id number] [place] [address] Mar, [facility] [place] [facility] [address] [id number] [place] [address] Feb, [facility] [place] [facility] [address] [id number] [place] [address] Feb, [facility] [place] [facility] [address] [id number] [place] [address] Feb, [facility] [place] [facility] [address] [id number] [place] [address] Feb, [facility] [place] [facility] [address] [id number] [place] [address] Feb, [facility] [place] [facility] [address] [id number] [place] [address] Feb, [facility] [place] [facility] [address] [id number] [place] [address] Jan, [facility] [place] [facility] [address] [id number] [place] [address] Jan, [facility] [place] [facility] [address] [id number] [place] [address] Jan, [facility] [place] [facility] [address] [id number] [place] [address] Jan, [facility] [place] [facility] [address] [id number] [place] [address] Jan, [facility] [place] [facility] [address] [id number] [place] [address] Jan, [facility] [place] [facility] [address] [id number] [place] [address] Jan, [facility] [place] [facility] [address] [id number] [place] [address] Jan, [facility] [place] [facility] [address] [id number] [place] [address] Dec, [facility] [place] [facility] [address] [id number] [place] [address] Dec, [facility] [place] [facility] [address] [id number] [place] [address] Dec, [facility] [place] [facility] [address] [id number] [place] [address] Dec, [facility] [place] [facility] [address] [id number] [place] [address] Dec, [facility] [place] [facility] [address] [id number] [place] [address] Dec, [facility] [place] [facility] [address] [id number] [place] [address] Dec, [facility] [place] [facility] [address] [id number] [place] [address] Dec, [facility] [place] [facility] [address] [id number] [place] [address] October, [facility] [place] [facility] [address] [id number] [place] [address] October, [facility] [place] [facility] [address] [id number] [place] [address] Sep, [facility] [place] [facility] [address] [id number] [place] [address] Sep, [facility] [place] [facility] [address] [id number] [place] [address] Sep, [facility] [place] [facility] [address] [id number] [place] [address] Sep, [facility] [place] [facility] [address] [id number] [place] [address] Sep, [facility] [place] [facility] [address] [id number] [place] [address] Sep, [facility] [place] [facility] [address] [id number] [place] [address] Sep, [facility] [place] [facility] [address] [id number] [place] [address] Sep, [facility] [place] [facility] [address] [id number] [place] [address] Sep, [facility] [place] [facility] [address] [id number] [place] [address] Sep, [facility] [place] [facility] [address] [id number] [place] [address] Sep, [facility] [place] [facility] [address] [id number] [place] [address] Sep, [facility] [place] [facility] [address] [id number] [place] [address] Aug, [facility] [place] [facility] [address] [id number] [place] [address] Aug, [facility] [place] [facility] [address] [id number] [place] [address] Aug, [facility] [place] [facility] [address] [id number] [place] [address] Jun, [facility] [place] [facility] [address] [id number] [place] [address] Jun, [facility] [place] [facility] [address] [id number] [place] [address] Jun, [facility] [place] [facility] [address] [id number] [place] [address] Jun, [facility] [address] [id number] [place] [address] Jun, [facility] [place] [facility] [address] [id number] [place] [address] Jun, [facility] [place] [facility] [address] [facility] [id number] [place] [address] Jun, [facility] [place] [facility] [address] [id number] [place] [address] Jun, [facility] [place] [facility] [address] [id number] [place] [address] Jun, [facility] [place] [facility] [address] [id number] [place] [address] Jun, [facility] [address] [facility] [id number] [place] [address] May, [facility] [place] [facility] [address] [id number] [place] [address] May, [facility] [place] [facility] [address] [facility] [id number] [place] [address] May, [facility] [place] [facility] [address] [facility] [id number] [place] [address] May, [facility] [place] [facility] [address] [id number] [place] [address] Apr, [facility] [place] [facility] [address] [id number] [place] [address] Apr, [facility] [place] [facility] [address] [id number] [place] [address] Apr, [facility] [place] [facility] [address] [facility] [id number] [place] [address] Apr, [facility] [place] [facility] [address] [facility] [id number] [place] [address] Apr, [facility] [place] [facility] [address] [id number] [place] [address] Apr, [facility] [place] [facility] [address] [id number] [place] [address] Apr, [facility] [place] [facility] [address] [id number] [place] [address] Apr, [facility] [place] [facility] [address] [id number] [place] [address] Mar, [facility] [place] [facility] [address] [id number] [place] [address] Mar, [facility] [place] [facility] [address] [id number] [place] [address] Mar, [facility] [place] [facility] [address] [id number] [place] [address] Mar, [facility] [place] [facility] [address] [id number] [place] [address] Mar, [facility] [place] [facility] [address] [id number] [place] [address] Feb, [facility] [place] [facility] [address] [id number] [place] [address] Feb, [facility] [place] [facility] [address] [id number] [place] [address] Feb, [facility] [place] [facility] [address] [id number] [place] [address] Feb, [facility] [place] [facility] [address] [id number] [place] [address] Feb, [facility] [place] [facility] [address] [id number] [place] [address] Jan, [facility] [place] [facility] [address] [id number] [place] [address] Jan, [facility] [place] [facility] [address] [id number] [place] [address] Nov, [facility] [address] [id number] [place] [address] Nov, [facility] [place] [facility] [address] [id number] [place] [address] Nov, [facility] [address] [facility] [id number] [place] [address] Nov, [facility] [place] [facility] [address] [id number] [place] [address] October, [facility] [address] [id number] [place] [address] Sep, [facility] [place] [facility] [address] [id number] [place] [address] Aug, [facility] [address] [id number] [place] [address] Aug, [facility] [place] [facility] [address] [id number] [place] [address] Aug, [facility] [address] [id number] [place] [address] Aug, [facility] [place] [facility] [address] [facility] [id number] [place] [address] Jul, [facility] [address] [id number] [place] [address] Jun, [facility] [place] [facility] [address] [id number] [place] [address] Jun, [facility] [place] [facility] [address] [id number] [place] [address] May, [facility] [place] [facility] [address] [facility] [id number] [place] [address] May, [facility] [place] [facility] [address] [id number] [place] [id number] Mar, [facility] [place] [facility] [address] [id number] [place] [address] Mar, [facility] [place] [facility] [address] [id number] [place] [address] Mar, 2011 [facility] [place] [facility] [address] [id number] [place] [address] Mar, [facility] [place] [facility] [address] [id number] [place] [address] Mar, 2011 [facility] [place] [facility] [address] [id number] [place] [address] Mar, [facility] [place] [facility] [address] [id number] [place] [address] Mar, [facility] [place] [facility] [address] [id number] [place] [address] Mar, [facility] [place] [facility] [address] [id number] [place] [address] Mar, [facility] [place] [facility] [address] [id number] [place] [address] Mar, [facility] [place] [facility] [address] [id number] [place] [address] 20 Mar, 2012 [facility] [place] [facility] [address] [id number] [place] [address] Mar, [facility] [place] [facility] [address] [id number] [place] [address] 17 Mar, 2012 [facility] [place] [facility] [address] [id number] [place] [address] 15 Mar, 2012 [facility] [place] [facility] [address] [id number] [place] [address] 15 Mar, 2012 [facility] [place] [facility] [address] [id number] [place] [address] 15 Mar, 2012 [facility] [place] [facility] [address] [id number] [place] [address] 15 Mar, 2012 [facility] [place] [facility] [address] [id number] [place] [address] Mar, [facility] [place] [facility] [address] [id number] [place] [address] Mar, [facility] [place] [facility] [address] [id number] [place] [address] Mar, [facility] [place] [facility] [address] [id number] [place] [address] Mar, [facility] [place] [facility] [address] [id number] [place] [address] Mar, [facility] [place] [facility] [address] [id number] [place] [address] Mar, [facility] [place] [facility] [address] [id number] [place] [address] 19 Feb, 2012 [facility] [place] [facility] [address] [id number] [place] [address] 18 Feb, 2012 [facility] [place] [facility] [address] [id number] [place] [address] 17 Feb, 2012 [facility] [place] [facility] [address] [id number] [place] [address] 14 Feb, 2012 [facility] [place] [facility] [address] [id number] [place] [address] 14 Feb, 2012 [facility] [place] [facility] [address] [id number] [place] [address] 12 Feb, 2012 [facility] [place] [facility] [address] [id number] [place] [address] 10 Feb, 2012 [facility] [place] [facility] [address] [id number] [place] [address] 31 Jan, 2012 [facility] [place] [facility] [address] [id number] [place] [address] 30 Jan, 2012 [facility] [place] [facility] [address] [id number] [place] [address] Jan, [facility] [place] [facility] [address] [id number] [place] [address] Jan, [facility] [place] [facility] [address] [id number] [place] [address] Jan, [facility] [place] [facility] [address] [id number] [place] [address] Jan, [facility] [place] [facility] [address] [id number] [place] [address] Jan, [facility] [place] [facility] [address] [id number] [place] [address] Jan, [facility] [place] [facility] [address] [id number] [place] [address] Jan, [facility] [place] [facility] [address] [id number] [place] [address] Jan, [facility] [place] [facility] [address] [id number] [place] [address] Dec, [facility] [place] [facility] [address] [id number] [place] [address] 24 Dec, 2011 [facility] [place] [facility] [address] [id number] [place] [address] Dec, [facility] [place] [facility] [address] [id number] [place] [address] Dec, [facility] [place] [facility] [address] [id number] [place] [address] 18 Dec, 2011 [facility] [place] [facility] [address] [id number] [place] [address] Dec, [facility] [place] [facility] [address] [id number] [place] [address] 16 Dec, 2011 [facility] [place] [facility] [address] [id number] [place] [address] 14 Dec, 2011 [facility] [place] [facility] [id number] [address] Dec, [facility] [id number] [place] [address] Dec, [facility] [id number] [place] [address] Dec, [facility] [id number] [place] [address] Nov, [facility] [id number] [place] [address] Nov, [facility] [id number] [place] [address] Nov, [facility] [id number] [place] [address] Nov, [facility] [id number] [place] [address] Nov, [facility] [id number] [place] [address] Nov, [facility] [address] [place] [address] Nov, [facility] [address] [place] [address] Nov, [facility] [address] [place] [address] Nov, [facility] [address] [id number] [address] Nov, [facility] [id number] [place] [address] October, IMMUNIZATIONS No Known Immunizations SOCIAL HISTORY Never Assessed REASON FOR VISIT EMR-[facility] PLAN OF CARE VITAL SIGNS MEDICATIONS Unknown [...] hysterectomy-total 2005 Surgical History lower [facility] [place] -not sure results Surgical History EGD Hospitalization [...]
--- OUTSIDE RECORDS SUMMARY | 2018-11-18 20:19 | XMS REPORT ---
Author Author Migration, Doctor Organization [facility] Address Unknown Phone Unavailable Care Team Providers Care Cyberathlete Name Role Phone Migration, Doctor Unavailable Unavailable PROBLEMS Type Condition ICD9-CM Code HKK59-RS Code Onset Dates Condition Status SNOMED Code Problem Elevated liver enzymes R74.8 Active 651271603 Problem Abnormal glucose R73.09 Active 517386223 Problem Hyperlipidemia LDL goal <100 E78.5 Active 75593025 Problem Hypokalemia E87.6 Active 61877305 Problem Major depressive disorder, recurrent episode, moderate F33.1 Active 667046193 Problem Tremor, hereditary, benign G25.0 Active 561185228 Problem Chronic migraine without aura with status migrainosus, not intractable G43.701 Active 576617284 Problem 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 Active 69864372 Problem Other chronic pain G89.29 Active 56044871 Problem Seizure disorder G40.909 Active 725049994 Problem Other chronic pain G89.29 Active 65272713 Problem Essential hypertension I10 Active 22907989 Problem Reflux gastritis K29.60 Active 00458235 Problem Irritable bowel K58.9 Active 23731752 Problem Primary insomnia F51.01 Active 1799423 Problem Moderate persistent asthma without complication J45.40 Active 946194121 Problem Moderate persistent asthma with exacerbation J45.41 Active 741807518 Problem Intractable chronic migraine without aura and with status migrainosus G43.711 Active 948002881 ALLERGIES No Information ENCOUNTERS Encounter Location Date Diagnosis [facility] [address] [facility] [id number] [address] Sep, [facility] [address] [id number], [place] [address] Sep, Viral gastroenteritis A08.4 [facility] [address] [id number], [place] [address] Aug, Headache R51 ; Viral upper respiratory tract infection J06.9 and Nausea R11.0 [facility] [address] [id number], [place] [address] Jun, Reflux gastritis K29.60 [facility] [id number] [place] [address] Jun, [facility] [id number] [place] [address] May, [facility] [address] [address] May, [facility] [id number] [place] [address] Apr, Bowel habit changes R19.4 and Acute cystitis without hematuria N30.00 [facility] [id number] [place] [address] Apr, Pain in right shoulder M25.511 [facility] [address] [address] Apr, [facility] [id number] [place] [address] Mar, [facility] [id number] [place] [address] Mar, [facility] [id number] [place] [address] Mar, [facility] [id number] [place] [address] Mar, [facility] [id number] [place] [address] [address], [address] [facility] [id number] [place] [phone] [address], [address] [facility] [id number] [place] [address] [address], [address] [facility] [id number] [place] [address] Jan, [facility] [id number] [place] [address] Dec, [address] [address] [address] Dec, Other chronic pain G89.29 ; Pain in right shoulder M25.511 and Liver enzyme elevation R74.8 [place] [address] [address] Nov, Other chronic pain G89.29 and Pain in right shoulder M25.511 [place] [address] [address] October, [facility] [address] [address] October, Right shoulder pain, unspecified chronicity M25.511 [place] [address] [address] Aug, Elevated liver enzymes R74.8 and Hyperlipidemia LDL goal <100 E78.5 [place] [address] [address] Aug, [place] [id number] [place] [address] Jul, [place] [id number] [place] [address] Jul, Intractable chronic migraine without aura and with status migrainosus G43.711 ; Fever, unspecified fever cause R50.9 and Elevated liver enzymes R74.8 [place] [id number] [place] [address] Jun, Difficulty urinating R39.198 and Moderate persistent asthma with exacerbation J45.41 [place] [address] [address] Jun, [place] [id number] [place] [address] Jun, Moderate persistent asthma with exacerbation J45.41 [place] [address] [address] May, Elevated liver enzymes R74.8 and Hyperlipidemia LDL goal <100 E78.5 [place] [address] [address] May, Elevated lipids E78.5 [place] [address] [address] Apr, Elevated liver enzymes R74.8 [place] [address] [address] Apr, Elevated liver enzymes R74.8 [place] [id number] [place] [address] Apr, Superior glenoid labrum lesion of right shoulder, subsequent encounter S43.431D [place] [id number] [place] [address] Apr, Hypokalemia E87.6 ; Major depressive disorder, recurrent episode, moderate F33.1 ; Other abnormalities of breathing R06.89 and Dyspnea, unspecified R06.00 [facility] [id number] [place] [address] Mar, Moderate persistent asthma without complication J45.40 [place] [id number] [place] [address] Mar, Impingement syndrome of right shoulder M75.41 [place] [id number] [place] [address] Jan, [place] [id number] [place] [address] Jan, Chronic migraine without aura with status migrainosus, not intractable G43.701 ; Essential hypertension I10 ; Irritable bowel K58.9 ; Primary insomnia F51.[address] [facility] [id number] [place] [address] Dec, [facility] [id number] [place] [address] Dec, Pain in right shoulder M25.511 [facility] [id number] [place] [address] Dec, Essential hypertension I10 [facility] [id number] [place] [address] Dec, [facility] [id number] [place] [address] Nov, Essential hypertension I10 [facility] [id number] [place] [address] 14 Nov, 2016 Pain in right shoulder M25.511 [facility] [id number] [place] [address] Nov, Pain in right shoulder M25.511 [facility] [id number] [place] [address] October, [facility] [id number] [place] [address] October, Pain in right shoulder M25.511 [facility] [id number] [place] [address] Sep, Arm pain, right M79.601 [facility] [address] [id number], [place] [address] Sep, [facility] [id number] [place] [address] Sep, Abnormal glucose R73.09 and Elevated lipids E78.5 [facility] [id number] [place] [address] Sep, Abnormal glucose R73.09 and Elevated lipids E78.5 [place] [id number] [place] [address] Aug, [place] [id number] [place] [address] Aug, [place] [id number] [place] [address] Aug, [place] [address] [address] Aug, 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 ; Hypokalemia E87.6 ; Irritable bowel K58.9 ; Essential hypertension I10 ; Pain in right shoulder M25.511 ; Seizure disorder G40.909 and Screening for lipid disorders Z13.220 [place] [id number] [place] [address] Jul, Other chronic pain G89.29 and Pain in right shoulder M25.511 [place] [id number] [place] [address] 14 Jul, 2016 Biceps muscle strain, right, subsequent encounter S46.111D [facility] [place] [id number] [place] [address] 08 Jul, 2016 Arm pain, right M79.601 [place] [id number] [place] [address] Jun, [place] [id number] [place] [address] Jun, Acute non-recurrent frontal sinusitis J01.10 [place] [id number] [place] [address] 14 May, 2016 Generalized abdominal pain R10.84 ; Urinary tract infection without hematuria, site unspecified N39.0 ; Hypokalemia E87.6 ; Essential hypertension I10 ; Screening for lipid disorders Z13.220 ; Seizure R56.9 and Low back pain M54.5 [place] [id number] [place] [address] Apr, [facility] [id number] [place] [address] Feb, [facility] [id number] [place] [address] Jan, [facility] [id number] [place] [address] Dec, 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 ; Hypokalemia E87.6 ; Irritable bowel K58.9 and Nausea R11.0 [facility] [id number] [place] [address] Dec, Generalized abdominal pain R10.84 [place] [id number] [place] [address] Nov, [facility] [address] [address] Aug, Acute bronchitis J20.9 [place] [id number] [place] [address] Aug, [facility] [id number] [place] [address] Aug, Low back pain M54.5 ; Hypokalemia E87.6 ; Chronic migraine without aura with status migrainosus, not intractable G43.701 ; Tremor, hereditary, benign G25.0 ; Irritable bowel K58.9 ; Essential hypertension I10 [address]56[address] [facility] [id number] [place] [address] Aug, [place] [address] [address] Jul, [facility] [id number] [place] [address] Jul, Low back pain M54.5 ; Hypokalemia E87.6 ; Chronic migraine without aura with status migrainosus, not intractable G43.701 ; Tremor, hereditary, benign G25.0 ; Irritable bowel K58.9 ; Essential hypertension I10 and Seizure R56.9 [place] [address] [address] 20 Jun, 2015 Hypokalemia E87.6 [place] [address] [address] 15 Jun, 2015 ADD (attention deficit disorder) without hyperactivity F90.0 ; Generalized anxiety disorder F41.1 and Major depressive disorder, recurrent episode, moderate F33.1 [place] [address] [address] 13 Jun, 2015 Low back pain M54.5 ; Hypokalemia E87.6 ; Chronic migraine without aura with status migrainosus, not intractable G43.701 ; Tremor, hereditary, benign G25.0 ; Irritable bowel K58.9 ; Essential hypertension I10 and Seizure R56.9 [place] [address] [address] Jun, [place] [address] [address] May, [place] [address] [address] 30 May, 2015 Low back pain M54.5 ; Hypokalemia E87.6 ; Chronic migraine without aura with status migrainosus, not intractable G43.701 ; Tremor, hereditary, benign G25.0 ; Irritable bowel K58.9 ; Essential hypertension I10 ; Seizure R56.9 and Tinea capitis B35.0 [place] [id number] [place] [address] 17 May, 2015 Low back pain M54.5 ; Hypokalemia E87.6 ; Chronic migraine without aura with status migrainosus, not intractable G43.701 ; Tremor, hereditary, benign G25.0 ; Irritable bowel K58.9 ; Essential hypertension I10 ; Seizure R56.9 ; Otitis media, left H66.92 and Dysuria 788.1 [place] [id number] [place] [address] May, Tooth pain K08.8 [place] [id number] [place] [address] May, [place] [address] [address] May, Low back pain M54.5 ; Hypokalemia E87.6 ; Chronic migraine without aura with status migrainosus, not intractable G43.701 ; Tremor, hereditary, benign G25.0 ; Irritable bowel K58.9 and Essential hypertension I10 [place] [id number] [place] [address] Apr, Low back pain M54.5 ; Hypokalemia E87.6 ; Chronic migraine without aura with status migrainosus, not intractable G43.701 ; Tremor, hereditary, benign G25.0 and Irritable bowel K58.9 [place] [id number] [place] [address] Apr, Low back pain M54.5 [place] [id number] [place] [address] Mar, [place] [address] [address] Mar, Irritable bowel syndrome with diarrhea K58.0 [place] [id number] [place] [address] Mar, [place] [id number] [place] [address] Feb, [facility] [id number] [place] [address] Feb, [place] [id number] [address] Feb, Irritable bowel syndrome 564.1 ; Lumbago 724.2 and Cervical pain (neck) 723.1 [facility] [id number] [place] [address] Dec, Major depressive disorder, recurrent episode, moderate 296.32 and Generalized anxiety disorder 300.02 [facility] [id number] [place] [address] Nov, [facility] [id number] [place] [address] Nov, Major depressive disorder, recurrent episode, moderate 296.32 [facility] [id number] [place] [address] Nov, Constipation 564.00 ; Nausea & vomiting 787.01 and Abdominal pain 789.00 [facility] [id number] [place] [address] Nov, [facility] [id number] [place] [address] October, [facility] [id number] [place] [address] October, [facility] [address] [id number] [address] October, [facility] [id number] [place] [address] October, [facility] [address] [place] [address] Sep, [facility] [id number] [place] [address] Sep, Dysuria 788.1 [facility] [id number] [place] [address] Sep, [facility] [id number] [address] 14 Sep, 2014 [facility] [place] [facility] [address] [id number] [place] [address] 13 Sep, 2014 [facility] [place] [facility] [address] [id number] [place] [address] 30 Aug, 2014 [facility] [place] [facility] [address] [id number] [place] [address] 30 Aug, 2014 [facility] [place] [facility] [address] [id number] [place] [address] Aug, [facility] [place] [facility] [address] [id number] [place] [address] Aug, [facility] [place] [facility] [address] [id number] [place] [address] Aug, [facility] [place] [facility] [address] [id number] [place] [address] Aug, [facility] [place] [facility] [address] [id number] [place] [address] Aug, [facility] [place] [facility] [address] [id number] [place] [address] Aug, [facility] [place] [facility] [address] [id number] [place] [address] Aug, [facility] [place] [facility] [address] [id number] [place] [address] Aug, [facility] [place] [facility] [address] [id number] [place] [address] Jun, [facility] [place] [facility] [address] [id number] [place] [address] Jun, [facility] [place] [facility] [address] [id number] [place] [address] Jun, [facility] [place] [facility] [address] [id number] [place] [address] Jun, [facility] [place] [facility] [address] [id number] [place] [address] May, [facility] [place] [facility] [address] [id number] [place] [address] May, [facility] [place] [facility] [address] [id number] [place] [address] May, [facility] [place] [facility] [address] [id number] [place] [address] May, [facility] [place] [facility] [address] [id number] [place] [address] May, [facility] [place] [facility] [address] [id number] [place] [address] May, [facility] [place] [facility] [address] [id number] [place] [address] May, [facility] [place] [facility] [address] [id number] [place] [address] May, [facility] [place] [facility] [address] [id number] [place] [address] Mar, [facility] [place] [facility] [address] [id number] [place] [address] Mar, [facility] [place] [facility] [address] [id number] [place] [address] Mar, [facility] [place] [facility] [address] [id number] [place] [address] Mar, [facility] [place] [facility] [address] [id number] [place] [address] Mar, [facility] [place] [facility] [address] [id number] [place] [address] Mar, [facility] [place] [facility] [address] [id number] [place] [address] Mar, [facility] [place] [facility] [address] [id number] [place] [address] Mar, [facility] [place] [facility] [address] [id number] [place] [address] Mar, [facility] [place] [facility] [address] [id number] [place] [address] Mar, [facility] [place] [facility] [address] [id number] [place] [address] Mar, [facility] [place] [facility] [address] [id number] [place] [address] Mar, [facility] [place] [facility] [address] [id number] [place] [address] Feb, [facility] [place] [facility] [address] [id number] [place] [address] Feb, [facility] [place] [facility] [address] [id number] [place] [address] Feb, [facility] [place] [facility] [address] [id number] [place] [address] Feb, [facility] [place] [facility] [address] [id number] [place] [address] Feb, [facility] [place] [facility] [address] [id number] [place] [address] Feb, [facility] [place] [facility] [address] [id number] [place] [address] Jan, [facility] [place] [facility] [address] [id number] [place] [address] Jan, [facility] [place] [facility] [address] [id number] [place] [address] Jan, [facility] [place] [facility] [address] [id number] [place] [address] Jan, [facility] [place] [facility] [address] [id number] [place] [address] Jan, [facility] [place] [facility] [address] [id number] [place] [address] Jan, [facility] [place] [facility] [address] [id number] [place] [address] Jan, [facility] [place] [facility] [address] [id number] [place] [address] Jan, [facility] [place] [facility] [address] [id number] [place] [address] Dec, [facility] [place] [facility] [address] [id number] [place] [address] Dec, [facility] [place] [facility] [address] [id number] [place] [address] Dec, [facility] [place] [facility] [address] [id number] [place] [address] Dec, [facility] [place] [facility] [address] [id number] [place] [address] Dec, [facility] [place] [facility] [address] [id number] [place] [address] Dec, [facility] [place] [facility] [address] [id number] [place] [address] Dec, [facility] [place] [facility] [address] [id number] [place] [address] Dec, [facility] [place] [facility] [address] [id number] [place] [address] October, [facility] [place] [facility] [address] [id number] [place] [address] October, [facility] [place] [facility] [address] [id number] [place] [address] Sep, [facility] [place] [facility] [address] [id number] [place] [address] Sep, [facility] [place] [facility] [address] [id number] [place] [address] Sep, [facility] [place] [facility] [address] [id number] [place] [address] Sep, [facility] [place] [facility] [address] [id number] [place] [address] Sep, [facility] [place] [facility] [address] [id number] [place] [address] Sep, [facility] [place] [facility] [address] [id number] [place] [address] Sep, [facility] [place] [facility] [address] [id number] [place] [address] Sep, [facility] [place] [facility] [address] [id number] [place] [address] Sep, [facility] [place] [facility] [address] [id number] [place] [address] Sep, [facility] [place] [facility] [address] [id number] [place] [address] Sep, [facility] [place] [facility] [address] [id number] [place] [address] Sep, [facility] [place] [facility] [address] [id number] [place] [address] Aug, [facility] [place] [facility] [address] [id number] [place] [address] Aug, [facility] [place] [facility] [address] [id number] [place] [address] Aug, [facility] [place] [facility] [address] [id number] [place] [address] Jun, [facility] [place] [facility] [address] [id number] [place] [address] Jun, [facility] [place] [facility] [address] [id number] [place] [address] Jun, [facility] [place] [facility] [address] [id number], [place] [address] Jun, [facility] [address] [id number] [place] [address] Jun, [facility] [place] [facility] [address] [id number] [place] [address] Jun, [facility] [place] [facility] [address] [facility] [id number] [place] [address] Jun, [facility] [place] [facility] [address] [id number] [place] [address] Jun, [facility] [place] [facility] [address] [id number] [place] [address] Jun, [facility] [place] [facility] [address] [id number] [place] [address] Jun, [facility] [address] [facility] [id number], [place] [address] May, [facility] [place] [facility] [address] [id number] [place] [address] May, [facility] [place] [facility] [address] [facility] [id number] [place] [address] May, [facility] [place] [facility] [address] [facility] [id number] [place] [address] May, [facility] [place] [facility] [address] [id number], [place] [address] Apr, [facility] [place] [facility] [address] [id number], [place] [address] Apr, [facility] [place] [facility] [address] [id number] [place] [address] Apr, [facility] [place] [facility] [address] [facility] [id number] [place] [address] Apr, [facility] [place] [facility] [address] [facility] [id number], [place] [address] Apr, [facility] [place] [facility] [address] [id number] [place] [address] Apr, [facility] [place] [facility] [address] [id number] [place] [address] Apr, [facility] [place] [facility] [address] [id number] [place] [address] Apr, [facility] [place] [facility] [address] [id number] [place] [address] Mar, [facility] [place] [facility] [address] [id number] [place] [address] Mar, [facility] [place] [facility] [address] [id number] [place] [address] Mar, [facility] [place] [facility] [address] [id number] [place] [address] Mar, [facility] [place] [facility] [address] [id number] [place] [address] Mar, [facility] [place] [facility] [address] [id number] [place] [address] Feb, [facility] [place] [facility] [address] [id number] [place] [address] Feb, [facility] [place] [facility] [address] [id number] [place] [address] Feb, [facility] [place] [facility] [address] [id number] [place] [address] Feb, [facility] [place] [facility] [address] [id number] [place] [address] Feb, [facility] [place] [facility] [address] [id number] [place] [address] Jan, [facility] [place] [facility] [address] [id number] [place] [address] Jan, [facility] [place] [facility] [address] [id number] [place] [address] Nov, [facility] [address] [id number] [place] [address] Nov, [facility] [place] [facility] [address] [id number] [place] [address] Nov, [facility] [address] [facility] [id number] [place] [address] Nov, [facility] [place] [facility] [address] [id number] [place] [address] October, [facility] [address] [id number] [place] [address] Sep, [facility] [place] [facility] [address] [id number] [place] [address] Aug, [facility] [address] [id number] [place] [address] Aug, [facility] [place] [facility] [address] [id number], [place] [address] Aug, [facility] [address] [id number], [place] [address] Aug, [facility] [place] [facility] [address] [facility] [id number], [place] [address] Jul, [facility] [address] [id number], [place] [address] Jun, [facility] [place] [facility] [address] [id number], [place] [address] Jun, [facility] [place] [facility] [address] [id number], [place] [address] May, [facility] [place] [facility] [address] [facility] [id number], [place] [address] May, [facility] [place] [facility] [address] [id number] [place] [id number] Mar, [facility] [place] [facility] [address] [id number] [place] [address] Mar, [facility] [place] [facility] [address] [id number] [place] [address] Mar, 2011 [facility] [place] [facility] [address] [id number] [place] [address] Mar, [facility] [place] [facility] [address] [id number] [place] [address] Mar, 2011 [facility] [place] [facility] [address] [id number] [place] [address] Mar, [facility] [place] [facility] [address] [id number] [place] [address] Mar, [facility] [place] [facility] [address] [id number] [place] [address] Mar, [facility] [place] [facility] [address] [id number] [place] [address] Mar, [facility] [place] [facility] [address] [id number] [place] [address] Mar, [facility] [place] [facility] [address] [id number] [place] [address] 20 Mar, 2012 [facility] [place] [facility] [address] [id number] [place] [address] Mar, [facility] [place] [facility] [address] [id number] [place] [address] 17 Mar, 2012 [facility] [place] [facility] [address] [id number], [place] [address] 15 Mar, 2012 [facility] [place] [facility] [address] [id number] [place] [address] 15 Mar, 2012 [facility] [place] [facility] [address] [id number], [place] [address] 15 Mar, 2012 [facility] [place] [facility] [address] [id number], [place] [address] 15 Mar, 2012 [facility] [place] [facility] [address] [id number] [place] [address] Mar, [facility] [place] [facility] [address] [id number] [place] [address] Mar, [facility] [place] [facility] [address] [id number] [place] [address] Mar, [facility] [place] [facility] [address] [id number] [place] [address] Mar, [facility] [place] [facility] [address] [id number] [place] [address] Mar, [facility] [place] [facility] [address] [id number] [place] [address] Mar, [facility] [place] [facility] [address] [id number] [place] [address] 19 Feb, 2012 [facility] [place] [facility] [address] [id number] [place] [address] 18 Feb, 2012 [facility] [place] [facility] [address] [id number] [place] [address] 17 Feb, 2012 [facility] [place] [facility] [address] [id number] [place] [address] 14 Feb, 2012 [facility] [place] [facility] [address] [id number] [place] [address] 14 Feb, 2012 [facility] [place] [facility] [address] [id number] [place] [address] 12 Feb, 2012 [facility] [place] [facility] [address] [id number] [place] [address] 10 Feb, 2012 [facility] [place] [facility] [address] [id number] [place] [address] 31 Jan, 2012 [facility] [place] [facility] [address] [id number] [place] [address] 30 Jan, 2012 [facility] [place] [facility] [address] [id number] [place] [address] Jan, [facility] [place] [facility] [address] [id number] [place] [address] Jan, [facility] [place] [facility] [address] [id number] [place] [address] Jan, [facility] [place] [facility] [address] [id number] [place] [address] Jan, [facility] [place] [facility] [address] [id number] [place] [address] Jan, [facility] [place] [facility] [address] [id number] [place] [address] Jan, [facility] [place] [facility] [address] [id number] [place] [address] Jan, [facility] [place] [facility] [address] [id number] [place] [address] Jan, [facility] [place] [facility] [address] [id number] [place] [address] Dec, [facility] [place] [facility] [address] [id number] [place] [address] 24 Dec, 2011 [facility] [place] [facility] [address] [id number] [place] [address] Dec, [facility] [place] [facility] [address] [id number] [place] [address] Dec, [facility] [place] [facility] [address] [id number] [place] [address] 18 Dec, 2011 [facility] [place] [facility] [address] [id number] [place] [address] Dec, [facility] [place] [facility] [address] [id number] [place] [address] 16 Dec, 2011 [facility] [place] [facility] [address] [id number] [place] [address] 14 Dec, 2011 [facility] [place] [facility] [id number], [place] [address] Dec, [facility] [id number] [address] Dec, [facility] [id number] [address] Dec, [facility] [id number] [address] Nov, [facility] [id number] [address] Nov, [facility] [id number] [place] [address] Nov, [facility] [id number] [address] Nov, [facility] [id number] [place] [address] Nov, [facility] [id number] [address] Nov, [facility] [id number] [address] Nov, [facility] [id number] [address] Nov, [facility] [id number] [address] Nov, [facility] [address] [id number], [place] [address] Nov, [facility] [id number], [place] [address] October, IMMUNIZATIONS No Known Immunizations SOCIAL HISTORY [...] hysterectomy-total 2005 Surgical History lower GI [facility] -not sure results Surgical History EGD Hospitalization [...]
--- OUTSIDE RECORDS SUMMARY | 2018-11-18 20:20 | XMS REPORT ---
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 Name Role Phone Migration, Doctor Unavailable Unavailable PROBLEMS Type Condition ICD9-CM Code KPO41-DV Code Onset Dates Condition Status SNOMED Code Problem Elevated liver enzymes R74.8 Active 191041184 Problem Abnormal glucose R73.09 Active 340987268 Problem Hyperlipidemia LDL goal <100 E78.5 Active 87567758 Problem Hypokalemia E87.6 Active 83426942 Problem Major depressive disorder, recurrent episode, moderate F33.1 Active 010752272 Problem Tremor, hereditary, benign G25.0 Active 544787395 Problem Chronic migraine without aura with status migrainosus, not intractable G43.701 Active 760898342 Problem 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 Active 10289162 Problem Other chronic pain G89.29 Active 52474898 Problem Seizure disorder G40.909 Active 244100471 Problem Other chronic pain G89.29 Active 15925581 Problem Essential hypertension I10 Active 08106737 Problem Reflux gastritis K29.60 Active 46808489 Problem Irritable bowel K58.9 Active 14701938 Problem Primary insomnia F51.01 Active 0590716 Problem Moderate persistent asthma without complication J45.40 Active 335813831 Problem Moderate persistent asthma with exacerbation J45.41 Active 929156156 Problem Intractable chronic migraine without aura and with status migrainosus G43.711 Active [id number] ALLERGIES No Information ENCOUNTERS Encounter Location Date Diagnosis [facility] [address] [facility] [id number] [address] Sep, [facility] [address] [id number] [address] Sep, Viral gastroenteritis A08.4 [facility] [address] [id number] [address] Aug, Headache R51 ; Viral upper respiratory tract infection J06.9 and Nausea R11.0 [facility] [address] [id number] [address] Jun, Reflux gastritis K29.60 [facility] [id number] [place] [address] Jun, [facility] [id number] [place] [address] May, [facility] [address] [address] May, [facility] [id number] [place] [address] Apr, Bowel habit changes R19.4 and Acute cystitis without hematuria N30.00 [facility] [id number] [place] [address] Apr, Pain in right shoulder M25.511 [facility] [address] [address] Apr, [facility] [id number] [place] [address] Mar, [facility] [id number] [place] [address] Mar, [facility] [id number] [place] [address] Mar, [facility] [id number] [place] [address] Mar, [facility] [id number] [place] [address] 14 Feb, 2018 [facility] [id number] [place] [address] 10 Feb, 2018 [facility] [id number] [place] [address] 05 Feb, 2018 [facility] [id number] [place] [address] Jan, [facility] [id number] [place] [address] Dec, [place] [address] [address] Dec, Other chronic pain G89.29 ; Pain in right shoulder M25.511 and Liver enzyme elevation R74.8 [place] [address] [address] Nov, Other chronic pain G89.29 and Pain in right shoulder M25.511 [place] [address] [address] October, [facility] [address] [address] October, Right shoulder pain, unspecified chronicity M25.511 [place] [address] [address] Aug, Elevated liver enzymes R74.8 and Hyperlipidemia LDL goal <100 E78.5 [place] [address] [address] Aug, [place] [id number] [place] [address] Jul, [place] [id number] [place] [address] Jul, Intractable chronic migraine without aura and with status migrainosus G43.711 ; Fever, unspecified fever cause R50.9 and Elevated liver enzymes R74.8 [place] [id number] [place] [address] Jun, Difficulty urinating R39.198 and Moderate persistent asthma with exacerbation J45.41 [place] [address] [address] Jun, [place] [id number] [place] [address] Jun, Moderate persistent asthma with exacerbation J45.41 [place] [address] [address] May, Elevated liver enzymes R74.8 and Hyperlipidemia LDL goal <100 E78.5 [place] [address] [address] May, Elevated lipids E78.5 [place] [address] [address] Apr, Elevated liver enzymes R74.8 [place] [address] [address] Apr, Elevated liver enzymes R74.8 [place] [id number] [place] [address] Apr, Superior glenoid labrum lesion of right shoulder, subsequent encounter S43.431D [place] [id number] [place] [address] Apr, Hypokalemia E87.6 ; Major depressive disorder, recurrent episode, moderate F33.1 ; Other abnormalities of breathing R06.89 and Dyspnea, unspecified R06.00 [facility] [id number] [place] [address] Mar, Moderate persistent asthma without complication J45.40 [place] [id number] [place] [address] Mar, Impingement syndrome of right shoulder M75.41 [place] [id number] [place] [address] Jan, [place] [id number] [place] [address] Jan, Chronic migraine without aura with status migrainosus, not intractable G43.701 ; Essential hypertension I10 ; Irritable bowel K58.9 ; Primary insomnia F51.01 and Hypokalemia E87.6 [facility] [id number] [place] [address] Dec, [facility] [id number] [place] [address] Dec, Pain in right shoulder M25.511 [facility] [id number] [place] [address] Dec, Essential hypertension I10 [facility] [id number] [place] [address] Dec, [facility] [id number] [place] [address] Nov, Essential hypertension I10 [facility] [id number] [place] [address] 14 Nov, 2016 Pain in right shoulder M25.511 [facility] [id number] [place] [address] Nov, Pain in right shoulder M25.511 [facility] [id number] [place] [address] October, [facility] [id number] [place] [address] October, Pain in right shoulder M25.511 [facility] [id number] [place] [address] Sep, Arm pain, right M79.601 [facility] [address] [id number] [address] Sep, [facility] [id number] [place] [address] Sep, Abnormal glucose R73.09 and Elevated lipids E78.5 [facility] [id number] [place] [address] Sep, Abnormal glucose R73.09 and Elevated lipids E78.5 [place] [id number] [place] [address] Aug, [place] [id number] [place] [address] Aug, [place] [id number] [place] [address] Aug, [place] [address] [address] Aug, 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 ; Hypokalemia E87.6 ; Irritable bowel K58.9 ; Essential hypertension I10 ; Pain in right shoulder M25.511 ; Seizure disorder G40.909 and Screening for lipid disorders Z13.220 [place] [id number] [place] [address] Jul, Other chronic pain G89.29 and Pain in right shoulder M25.511 [place] [id number] [place] [address] 14 Jul, 2016 Biceps muscle strain, right, subsequent encounter S46.111D [facility] [place] [id number] [place] [address] 08 Jul, 2016 Arm pain, right M79.601 [place] [id number] [place] [address] Jun, [place] [id number] [place] [address] Jun, Acute non-recurrent frontal sinusitis J01.10 [place] [id number] [place] [address] 14 May, 2016 Generalized abdominal pain R10.84 ; Urinary tract infection without hematuria, site unspecified N39.0 ; Hypokalemia E87.6 ; Essential hypertension I10 ; Screening for lipid disorders Z13.220 ; Seizure R56.9 and Low back pain M54.5 [place] [id number] [place] [address] Apr, [facility] [id number] [place] [address] Feb, [facility] [id number] [place] [address] Jan, [facility] [id number] [place] [address] Dec, 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 ; Hypokalemia E87.6 ; Irritable bowel K58.9 and Nausea R11.0 [facility] [id number] [place] [address] Dec, Generalized abdominal pain R10.84 [place] [id number] [place] [address] Nov, [facility] [address] [address] Aug, Acute bronchitis J20.9 [place] [id number] [place] [address] Aug, [facility] [id number] [place] [address] Aug, Low back pain M54.5 ; Hypokalemia E87.6 ; Chronic migraine without aura with status migrainosus, not intractable G43.701 ; Tremor, hereditary, benign G25.0 ; Irritable bowel K58.9 ; Essential hypertension I10 and Seizure R56.9 [facility] [id number] [place] [address] Aug, [place] [address] [address] Jul, [facility] [id number] [place] [address] Jul, Low back pain M54.5 ; Hypokalemia E87.6 ; Chronic migraine without aura with status migrainosus, not intractable G43.701 ; Tremor, hereditary, benign G25.0 ; Irritable bowel K58.9 ; Essential hypertension I10 and Seizure R56.9 [place] [address] [address] 20 Jun, 2015 Hypokalemia E87.6 [place] [address] [address] 15 Jun, 2015 ADD (attention deficit disorder) without hyperactivity F90.0 ; Generalized anxiety disorder F41.1 and Major depressive disorder, recurrent episode, moderate F33.1 [place] [address] [address] 13 Jun, 2015 Low back pain M54.5 ; Hypokalemia E87.6 ; Chronic migraine without aura with status migrainosus, not intractable G43.701 ; Tremor, hereditary, benign G25.0 ; Irritable bowel K58.9 ; Essential hypertension I10 and Seizure R56.9 [place] [address] [address] Jun, [place] [address] [address] May, [place] [address] [address] 30 May, 2015 Low back pain M54.5 ; Hypokalemia E87.6 ; Chronic migraine without aura with status migrainosus, not intractable G43.701 ; Tremor, hereditary, benign G25.0 ; Irritable bowel K58.9 ; Essential hypertension I10 ; Seizure R56.9 and Tinea capitis B35.0 [place] [id number] [place] [address] 17 May, 2015 Low back pain M54.5 ; Hypokalemia E87.6 ; Chronic migraine without aura with status migrainosus, not intractable G43.701 ; Tremor, hereditary, benign G25.0 ; Irritable bowel K58.9 ; Essential hypertension I10 ; Seizure R56.9 ; Otitis media, left H66.92 and Dysuria 788.1 [place] [id number] [place] [address] May, Tooth pain K08.8 [place] [id number] [place] [address] May, [place] [address] [address] May, Low back pain M54.5 ; Hypokalemia E87.6 ; Chronic migraine without aura with status migrainosus, not intractable G43.701 ; Tremor, hereditary, benign G25.0 ; Irritable bowel K58.9 and Essential hypertension I10 [place] [id number] [place] [address] Apr, Low back pain M54.5 ; Hypokalemia E87.6 ; Chronic migraine without aura with status migrainosus, not intractable G43.701 ; Tremor, hereditary, benign G25.0 and Irritable bowel K58.9 [place] [id number] [place] [address] Apr, Low back pain M54.5 [place] [id number] [place] [address] Mar, [place] [address] [address] Mar, Irritable bowel syndrome with diarrhea K58.0 [place] [id number] [place] [address] Mar, [place] [id number] [place] [address] Feb, [facility] [id number] [place] [address] Feb, [place] [id number] [place] [address] Feb, Irritable bowel syndrome 564.1 ; Lumbago 724.2 and Cervical pain (neck) 723.1 [facility] [id number] [place] [address] Dec, Major depressive disorder, recurrent episode, moderate 296.32 and Generalized anxiety disorder 300.02 [facility] [id number] [place] [address] Nov, [facility] [id number] [place] [address] Nov, Major depressive disorder, recurrent episode, moderate 296.32 [facility] [id number] [place] [address] Nov, Constipation 564.00 ; Nausea & vomiting 787.01 and Abdominal pain 789.00 [facility] [id number] [place] [address] Nov, [facility] [id number] [place] [address] October, [facility] [id number] [place] [address] October, [facility] [id number] [place] [address] October, [facility] [id number] [place] [address] October, [facility] [id number] [place] [address] Sep, Dysuria 788.1 [facility] [id number] [place] [address] Sep, [facility] [id number] [place] [address] Sep, [facility] [address] [place] [address] 14 Sep, 2014 [facility] [place] [facility] [address] [id number] [place] [address] 13 Sep, 2014 [facility] [place] [facility] [address] [id number] [place] [address] 30 Aug, 2014 [facility] [place] [facility] [address] [id number] [place] [address] 30 Aug, 2014 [facility] [place] [facility] [address] [id number] [place] [address] Aug, [facility] [place] [facility] [address] [id number] [place] [address] Aug, [facility] [place] [facility] [address] [id number] [place] [address] Aug, [facility] [place] [facility] [address] [id number] [place] [address] Aug, [facility] [place] [facility] [address] [id number] [place] [address] Aug, [facility] [place] [facility] [address] [id number] [place] [address] Aug, [facility] [place] [facility] [address] [id number] [place] [address] Aug, [facility] [place] [facility] [address] [id number] [place] [address] Aug, [facility] [place] [facility] [address] [id number] [place] [address] Jun, [facility] [place] [facility] [address] [id number] [place] [address] Jun, [facility] [place] [facility] [address] [id number] [place] [address] Jun, [facility] [place] [facility] [address] [id number] [place] [address] Jun, [facility] [place] [facility] [address] [id number] [place] [address] May, [facility] [place] [facility] [address] [id number] [place] [address] May, [facility] [place] [facility] [address] [id number] [place] [address] May, [facility] [place] [facility] [address] [id number] [place] [address] May, [facility] [place] [facility] [address] [id number] [place] [address] May, [facility] [place] [facility] [address] [id number] [place] [address] May, [facility] [place] [facility] [address] [id number] [place] [address] May, [facility] [place] [facility] [address] [id number] [place] [address] May, [facility] [place] [facility] [address] [id number] [place] [address] Mar, [facility] [place] [facility] [address] [id number] [place] [address] Mar, [facility] [place] [facility] [address] [id number] [place] [address] Mar, [facility] [place] [facility] [address] [id number] [place] [address] Mar, [facility] [place] [facility] [address] [id number] [place] [address] Mar, [facility] [place] [facility] [address] [id number] [place] [address] Mar, [facility] [place] [facility] [address] [id number] [place] [address] Mar, [facility] [place] [facility] [address] [id number] [place] [address] Mar, [facility] [place] [facility] [address] [id number] [place] [address] Mar, [facility] [place] [facility] [address] [id number] [place] [address] Mar, [facility] [place] [facility] [address] [id number] [place] [address] Mar, [facility] [place] [facility] [address] [id number] [place] [address] Mar, [facility] [place] [facility] [address] [id number] [place] [address] Feb, [facility] [place] [facility] [address] [id number] [place] [address] Feb, [facility] [place] [facility] [address] [id number] [place] [address] Feb, [facility] [place] [facility] [address] [id number] [place] [address] Feb, [facility] [place] [facility] [address] [id number] [place] [address] Feb, [facility] [place] [facility] [address] [id number] [place] [address] Feb, [facility] [place] [facility] [address] [id number] [place] [address] Jan, [facility] [place] [facility] [address] [id number] [place] [address] Jan, [facility] [place] [facility] [address] [id number] [place] [address] Jan, [facility] [place] [facility] [address] [id number] [place] [address] Jan, [facility] [place] [facility] [address] [id number] [place] [address] Jan, [facility] [place] [facility] [address] [id number] [place] [address] Jan, [facility] [place] [facility] [address] [id number] [place] [address] Jan, [facility] [place] [facility] [address] [id number] [place] [address] Jan, [facility] [place] [facility] [address] [id number] [place] [address] Dec, [facility] [place] [facility] [address] [id number] [place] [address] Dec, [facility] [place] [facility] [address] [id number] [place] [address] Dec, [facility] [place] [facility] [address] [id number] [place] [address] Dec, [facility] [place] [facility] [address] [id number] [place] [address] Dec, [facility] [place] [facility] [address] [id number] [place] [address] Dec, [facility] [place] [facility] [address] [id number] [place] [address] Dec, [facility] [place] [facility] [address] [id number] [place] [address] Dec, [facility] [place] [facility] [address] [id number] [place] [address] October, [facility] [place] [facility] [address] [id number] [place] [address] October, [facility] [place] [facility] [address] [id number] [place] [address] Sep, [facility] [place] [facility] [address] [id number] [place] [address] Sep, [facility] [place] [facility] [address] [id number] [place] [address] Sep, [facility] [place] [facility] [address] [id number] [place] [address] Sep, [facility] [place] [facility] [address] [id number] [place] [address] Sep, [facility] [place] [facility] [address] [id number] [place] [address] Sep, [facility] [place] [facility] [address] [id number] [place] [address] Sep, [facility] [place] [facility] [address] [id number] [place] [address] Sep, [facility] [place] [facility] [address] [id number] [place] [address] Sep, [facility] [place] [facility] [address] [id number] [place] [address] Sep, [facility] [place] [facility] [address] [id number] [place] [address] Sep, [facility] [place] [facility] [address] [id number] [place] [address] Sep, [facility] [place] [facility] [address] [id number] [place] [address] Aug, [facility] [place] [facility] [address] [id number] [place] [address] Aug, [facility] [place] [facility] [address] [id number] [place] [address] Aug, [facility] [place] [facility] [address] [id number] [place] [address] Jun, [facility] [place] [facility] [address] [id number] [place] [address] Jun, [facility] [place] [facility] [address] [id number] [place] [address] Jun, [facility] [place] [facility] [address] [id number] [address] Jun, [facility] [address] [id number] [place] [address] Jun, [facility] [place] [facility] [address] [id number] [place] [address] Jun, [facility] [place] [facility] [address] [facility] [id number] [place] [address] Jun, [facility] [place] [facility] [address] [id number] [place] [address] Jun, [facility] [place] [facility] [address] [id number] [place] [address] Jun, [facility] [place] [facility] [address] [id number] [place] [address] Jun, [facility] [address] [facility] [id number], [place] [address] May, [facility] [place] [facility] [address] [id number] [place] [address] May, [facility] [place] [facility] [address] [facility] [id number] [place] [address] May, [facility] [place] [facility] [address] [facility] [id number] [place] [address] May, [facility] [place] [facility] [address] [id number], [place] [address] Apr, [facility] [place] [facility] [address] [id number], [place] [address] Apr, [facility] [place] [facility] [address] [id number] [place] [address] Apr, [facility] [place] [facility] [address] [facility] [facility] [id number] [place] [address] Apr, [facility] [place] [facility] [address] [facility] [id number] [address] Apr, [facility] [place] [facility] [address] [id number] [place] [address] Apr, [facility] [place] [facility] [address] [id number] [place] [address] Apr, [facility] [place] [facility] [address] [id number] [place] [address] Apr, [facility] [place] [facility] [address] [id number] [place] [address] Mar, [facility] [place] [facility] [address] [id number] [place] [address] Mar, [facility] [place] [facility] [address] [id number] [place] [address] Mar, [facility] [place] [facility] [address] [id number] [place] [address] Mar, [facility] [place] [facility] [address] [id number] [place] [address] Mar, [facility] [place] [facility] [address] [id number] [place] [address] Feb, [facility] [place] [facility] [address] [id number] [place] [address] Feb, [facility] [place] [facility] [address] [id number] [place] [address] Feb, [facility] [place] [facility] [address] [id number] [place] [address] Feb, [facility] [place] [facility] [address] [id number] [place] [address] Feb, [facility] [place] [facility] [address] [id number] [place] [address] Jan, [facility] [place] [facility] [address] [id number] [place] [address] Jan, [facility] [place] [facility] [address] [id number] [place] [address] Nov, [facility] [address] [id number] [place] [address] Nov, [facility] [place] [facility] [address] [id number] [place] [address] Nov, [facility] [address] [facility] [id number] [place] [address] Nov, [facility] [place] [facility] [address] [id number] [place] [address] October, [facility] [address] [id number] [place] [address] Sep, [facility] [place] [facility] [address] [id number] [place] [address] Aug, [facility] [address] [id number] [place] [address] Aug, [facility] [place] [facility] [address] [id number], [place] [address] Aug, [facility] [address] [id number], [place] [address] Aug, [facility] [place] [facility] [address] [facility] [id number], [place] [address] Jul, [facility] [address] [id number], [place] [address] Jun, [facility] [place] [facility] [address] [id number], [place] [address] Jun, [facility] [place] [facility] [address] [id number], [place] [address] May, [facility] [place] [facility] [address] [facility] [id number], [place] [address] May, [facility] [place] [facility] [address] [id number] [place] [id number] Mar, [facility] [place] [facility] [address] [id number] [place] [address] Mar, [facility] [place] [facility] [address] [id number] [place] [address] Mar, 2011 [facility] [place] [facility] [address] [id number] [place] [address] Mar, [facility] [place] [facility] [address] [id number] [place] [address] Mar, 2011 [facility] [place] [facility] [address] [id number] [place] [address] Mar, [facility] [place] [facility] [address] [id number] [place] [address] Mar, [facility] [place] [facility] [address] [id number] [place] [address] Mar, [facility] [place] [facility] [address] [id number] [place] [address] Mar, [facility] [place] [facility] [address] [id number] [place] [address] Mar, [facility] [place] [facility] [address] [id number] [place] [address] 20 Mar, 2012 [facility] [place] [facility] [address] [id number] [place] [address] Mar, [facility] [place] [facility] [address] [id number] [place] [address] 17 Mar, 2012 [facility] [place] [facility] [address] [id number], [place] [address] 15 Mar, 2012 [facility] [place] [facility] [address] [id number] [place] [address] 15 Mar, 2012 [facility] [place] [facility] [address] [id number], [place] [address] 15 Mar, 2012 [facility] [place] [facility] [address] [id number], [place] [address] 15 Mar, 2012 [facility] [place] [facility] [address] [id number] [place] [address] Mar, [facility] [place] [facility] [address] [id number] [place] [address] Mar, [facility] [place] [facility] [address] [id number] [place] [address] Mar, [facility] [place] [facility] [address] [id number] [place] [address] Mar, [facility] [place] [facility] [address] [id number] [place] [address] Mar, [facility] [place] [facility] [address] [id number] [place] [address] Mar, [facility] [place] [facility] [address] [id number] [place] [address] 19 Feb, 2012 [facility] [place] [facility] [address] [id number] [place] [address] 18 Feb, 2012 [facility] [place] [facility] [address] [id number] [place] [address] 17 Feb, 2012 [facility] [place] [facility] [address] [id number] [place] [address] 14 Feb, 2012 [facility] [place] [facility] [address] [id number] [place] [address] 14 Feb, 2012 [facility] [place] [facility] [address] [id number] [place] [address] 12 Feb, 2012 [facility] [place] [facility] [address] [id number] [place] [address] 10 Feb, 2012 [facility] [place] [facility] [address] [id number] [place] [address] 31 Jan, 2012 [facility] [place] [facility] [address] [id number] [place] [address] 30 Jan, 2012 [facility] [place] [facility] [address] [id number] [place] [address] Jan, [facility] [place] [facility] [address] [id number] [place] [address] Jan, [facility] [place] [facility] [address] [id number] [place] [address] Jan, [facility] [place] [facility] [address] [id number] [place] [address] Jan, [facility] [place] [facility] [address] [id number] [place] [address] Jan, [facility] [place] [facility] [address] [id number] [place] [address] Jan, [facility] [place] [facility] [address] [id number] [place] [address] Jan, [facility] [place] [facility] [address] [id number] [place] [address] Jan, [facility] [place] [facility] [address] [id number] [place] [address] Dec, [facility] [place] [facility] [address] [id number] [place] [address] 24 Dec, 2011 [facility] [place] [facility] [address] [id number] [place] [address] Dec, [facility] [place] [facility] [address] [id number] [place] [address] Dec, [facility] [place] [facility] [address] [id number] [place] [address] 18 Dec, 2011 [facility] [place] [facility] [address] [id number] [place] [address] Dec, [facility] [place] [facility] [address] [id number] [place] [address] 16 Dec, 2011 [facility] [place] [facility] [address] [id number] [place] [address] 14 Dec, 2011 [facility] [place] [facility] [id number] [address] Dec, [facility] [id number], [place] [address] Dec, [facility] [id number], [place] [address] Dec, [facility] [id number], [place] [address] Nov, [facility] [id number], [place] [address] Nov, [facility] [id number] [place] [address] Nov, [facility] [id number], [place] [address] Nov, [facility] [id number] [place] [address] Nov, [facility] [id number], [place] [address] Nov, [facility] [id number], [place] [address] Nov, [facility] [id number], [place] [address] Nov, [facility] [id number], [place] [address] Nov, [facility] [id number], [place] [address] Nov, [facility] [id number], [place] [address] October, IMMUNIZATIONS No Known Immunizations SOCIAL HISTORY Never Assessed REASON FOR VISIT [place] [place] VITAL SIGNS MEDICATIONS Unknown [...] hysterectomy-total 2005 Surgical History lower GI [facility] [place] -not sure results Surgical History EGD Hospitalization [...]
--- OUTSIDE RECORDS SUMMARY | 2018-11-18 20:21 | XMS REPORT ---
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 Care Computer Forensic Examiner Name Role Phone Migration, Doctor Unavailable Unavailable PROBLEMS Type Condition ICD9-CM Code VCO30-PQ Code Onset Dates Condition Status SNOMED Code Problem Elevated liver enzymes R74.8 Active 332318164 Problem Abnormal glucose R73.09 Active 711274442 Problem Hyperlipidemia LDL goal <100 E78.5 Active 82143409 Problem Hypokalemia E87.6 Active 48392011 Problem Major depressive disorder, recurrent episode, moderate F33.1 Active 350711652 Problem Tremor, hereditary, benign G25.0 Active 800274031 Problem Chronic migraine without aura with status migrainosus, not intractable G43.701 Active 800255614 Problem 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 Active 28031727 Problem Other chronic pain G89.29 Active 96459064 Problem Seizure disorder G40.909 Active 112508624 Problem Other chronic pain G89.29 Active 17387704 Problem Essential hypertension I10 Active 57815644 Problem Reflux gastritis K29.60 Active 79663187 Problem Irritable bowel K58.9 Active 92432787 Problem Primary insomnia F51.01 Active 6544869 Problem Moderate persistent asthma without complication J45.40 Active 302751741 Problem Moderate persistent asthma with exacerbation J45.41 Active 409587820 Problem Intractable chronic migraine without aura and with status migrainosus G43.711 Active 504981583 ALLERGIES No Information ENCOUNTERS Encounter Location Date Diagnosis [facility] [address] [facility] [id number], [place] [address] Sep, [facility] [address] [id number] [address] Sep, Viral gastroenteritis A08.4 [facility] [address] [id number], [place] [address] Aug, Headache R51 ; Viral upper respiratory tract infection J06.9 and Nausea R11.0 [facility] [address] [id number], [place] [address] Jun, Reflux gastritis K29.60 [facility] [id number] [place] [address] Jun, [facility] [id number] [place] [address] May, [facility] [address] [address] May, [facility] [id number] [place] [address] Apr, Bowel habit changes R19.4 and Acute cystitis without hematuria N30.00 [facility] [id number] [place] [address] Apr, Pain in right shoulder M25.511 [facility] [address] [address] Apr, [facility] [id number] [place] [address] Mar, [facility] [id number] [place] [address] Mar, [facility] [id number] [place] [address] Mar, [facility] [id number] [place] [address] Mar, [facility] [id number] [place] [address] 14 Feb, 2018 [facility] [id number] [place] [address] 10 Feb, 2018 [facility] [id number] [place] [address] 05 Feb, 2018 [facility] [id number] [place] [address] Jan, [facility] [id number] [place] [address] Dec, [place] [address] [address] Dec, Other chronic pain G89.29 ; Pain in right shoulder M25.511 and Liver enzyme elevation R74.8 [place] [address] [address] Nov, Other chronic pain G89.29 and Pain in right shoulder M25.511 [place] [address] [address] October, [facility] [address] [address] October, Right shoulder pain, unspecified chronicity M25.511 [place] [address] [address] Aug, Elevated liver enzymes R74.8 and Hyperlipidemia LDL goal <100 E78.5 [place] [address] [address] Aug, [place] [id number] [place] [address] Jul, [place] [id number] [place] [address] Jul, Intractable chronic migraine without aura and with status migrainosus G43.711 ; Fever, unspecified fever cause R50.9 and Elevated liver enzymes R74.8 [place] [id number] [place] [address] Jun, Difficulty urinating R39.198 and Moderate persistent asthma with exacerbation J45.41 [place] [address] [address] Jun, [place] [id number] [place] [address] Jun, Moderate persistent asthma with exacerbation J45.41 [place] [address] [address] May, Elevated liver enzymes R74.8 and Hyperlipidemia LDL goal <100 E78.5 [place] [address] [address] May, Elevated lipids E78.5 [place] [address] [address] Apr, Elevated liver enzymes R74.8 [place] [address] [address] Apr, Elevated liver enzymes R74.8 [place] [id number] [place] [address] Apr, Superior glenoid labrum lesion of right shoulder, subsequent encounter S43.431D [place] [id number] [place] [address] Apr, Hypokalemia E87.6 ; Major depressive disorder, recurrent episode, moderate F33.1 ; Other abnormalities of breathing R06.89 and Dyspnea, unspecified R06.00 [facility] [id number] [place] [address] Mar, Moderate persistent asthma without complication J45.40 [place] [id number] [place] [address] Mar, Impingement syndrome of right shoulder M75.41 [place] [id number] [place] [address] Jan, [place] [id number] [place] [address] Jan, Chronic migraine without aura with status migrainosus, not intractable G43.701 ; Essential hypertension I10 ; Irritable bowel K58.9 ; Primary insomnia F51.01 and Hypokalemia E87.6 [facility] [id number] [place] [address] Dec, [facility] [id number] [place] [address] Dec, Pain in right shoulder M25.511 [facility] [id number] [place] [address] Dec, Essential hypertension I10 [facility] [id number] [place] [address] Dec, [facility] [id number] [place] [address] Nov, Essential hypertension I10 [facility] [id number] [place] [address] 14 Nov, 2016 Pain in right shoulder M25.511 [facility] [id number] [place] [address] Nov, Pain in right shoulder M25.511 [facility] [id number] [place] [address] October, [facility] [id number] [place] [address] October, Pain in right shoulder M25.511 [facility] [id number] [place] [address] Sep, Arm pain, right M79.601 [facility] [address] [id number] [address] Sep, [facility] [id number] [place] [address] Sep, Abnormal glucose R73.09 and Elevated lipids E78.5 [facility] [id number] [place] [address] Sep, Abnormal glucose R73.09 and Elevated lipids E78.5 [place] [id number] [place] [address] Aug, [place] [id number] [place] [address] Aug, [place] [id number] [place] [address] Aug, [place] [address] [address] Aug, 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 ; Hypokalemia E87.6 ; Irritable bowel K58.9 ; Essential hypertension I10 ; Pain in right shoulder M25.511 ; Seizure disorder G40.909 and Screening for lipid disorders Z13.220 [place] [id number] [place] [address] Jul, Other chronic pain G89.29 and Pain in right shoulder M25.511 [place] [id number] [place] [address] 14 Jul, 2016 Biceps muscle strain, right, subsequent encounter S46.111D [facility] [place] [id number] [place] [address] 08 Jul, 2016 Arm pain, right M79.601 [place] [id number] [place] [address] Jun, [place] [id number] [place] [address] Jun, Acute non-recurrent frontal sinusitis J01.10 [place] [id number] [place] [address] 14 May, 2016 Generalized abdominal pain R10.84 ; Urinary tract infection without hematuria, site unspecified N39.0 ; Hypokalemia E87.6 ; Essential hypertension I10 ; Screening for lipid disorders Z13.220 ; Seizure R56.9 and Low back pain M54.5 [place] [address] [place] [address] Apr, [facility] [id number] [place] [address] Feb, [facility] [id number] [place] [address] Jan, [facility] [id number] [place] [address] Dec, 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 ; Hypokalemia E87.6 ; Irritable bowel K58.9 and Nausea R11.0 [facility] [id number] [place] [address] Dec, Generalized abdominal pain R10.84 [place] [id number] [place] [address] Nov, [facility] [address] [address] Aug, Acute bronchitis J20.9 [place] [id number] [place] [address] Aug, [facility] [id number] [place] [address] Aug, Low back pain M54.5 ; Hypokalemia E87.6 ; Chronic migraine without aura with status migrainosus, not intractable G43.701 ; Tremor, hereditary, benign G25.0 ; Irritable bowel K58.9 ; Essential hypertension I10 and Seizure R56.9 [facility] [id number] [place] [address] Aug, [place] [address] [address] Jul, [facility] [id number] [place] [address] Jul, Low back pain M54.5 ; Hypokalemia E87.6 ; Chronic migraine without aura with status migrainosus, not intractable G43.701 ; Tremor, hereditary, benign G25.0 ; Irritable bowel K58.9 ; Essential hypertension I10 and Seizure R56.9 [place] [address] [address] 20 Jun, 2015 Hypokalemia E87.6 [place] [address] [address] 15 Jun, 2015 ADD (attention deficit disorder) without hyperactivity F90.0 ; Generalized anxiety disorder F41.1 and Major depressive disorder, recurrent episode, moderate F33.1 [place] [address] [address] 13 Jun, 2015 Low back pain M54.5 ; Hypokalemia E87.6 ; Chronic migraine without aura with status migrainosus, not intractable G43.701 ; Tremor, hereditary, benign G25.0 ; Irritable bowel K58.9 ; Essential hypertension I10 and Seizure R56.9 [place] [address] [address] Jun, [place] [address] [address] May, [place] [address] [address] 30 May, 2015 Low back pain M54.5 ; Hypokalemia E87.6 ; Chronic migraine without aura with status migrainosus, not intractable G43.701 ; Tremor, hereditary, benign G25.0 ; Irritable bowel K58.9 ; Essential hypertension I10 ; Seizure R56.9 and Tinea capitis B35.0 [place] [id number] [place] [address] 17 May, 2015 Low back pain M54.5 ; Hypokalemia E87.6 ; Chronic migraine without aura with status migrainosus, not intractable G43.701 ; Tremor, hereditary, benign G25.0 ; Irritable bowel K58.9 ; Essential hypertension I10 ; Seizure R56.9 ; Otitis media, left H66.92 and Dysuria 788.1 [place] [id number] [place] [address] May, Tooth pain K08.8 [place] [id number] [place] [address] May, [place] [address] [address] May, Low back pain M54.5 ; Hypokalemia E87.6 ; Chronic migraine without aura with status migrainosus, not intractable G43.701 ; Tremor, hereditary, benign G25.0 ; Irritable bowel K58.9 and Essential hypertension I10 [place] [id number] [place] [address] Apr, Low back pain M54.5 ; Hypokalemia E87.6 ; Chronic migraine without aura with status migrainosus, not intractable G43.701 ; Tremor, hereditary, benign G25.0 and Irritable bowel K58.9 [place] [id number] [place] [address] Apr, Low back pain M54.5 [place] [id number] [place] [address] Mar, [place] [address] [address] Mar, Irritable bowel syndrome with diarrhea K58.0 [place] [id number] [place] [address] Mar, [place] [id number] [place] [address] Feb, [facility] [id number] [place] [address] Feb, [place] [id number] [place] [address] Feb, Irritable bowel syndrome 564.1 ; Lumbago 724.2 and Cervical pain (neck) 723.1 [facility] [id number] [place] [address] Dec, Major depressive disorder, recurrent episode, moderate 296.32 and Generalized anxiety disorder 300.02 [facility] [id number] [place] [address] Nov, [facility] [id number] [place] [address] Nov, Major depressive disorder, recurrent episode, moderate 296.32 [facility] [id number] [place] [address] Nov, Constipation 564.00 ; Nausea & vomiting 787.01 and Abdominal pain 789.00 [facility] [id number] [place] [address] Nov, [facility] [id number] [place] [address] October, [facility] [id number] [place] [address] October, [facility] [id number] [place] [address] October, [facility] [id number] [place] [address] October, [facility] [id number] [place] [address] Sep, Dysuria 788.1 [facility] [id number] [place] [address] Sep, [facility] [id number] [place] [address] Sep, [facility] [address] [place] [address] 14 Sep, 2014 [facility] [place] [facility] [address] [id number] [place] [address] 13 Sep, 2014 [facility] [place] [facility] [address] [id number] [place] [address] 30 Aug, 2014 [facility] [place] [facility] [address] [id number] [place] [address] 30 Aug, 2014 [facility] [place] [facility] [address] [id number] [place] [address] Aug, [facility] [place] [facility] [address] [id number] [place] [address] Aug, [facility] [place] [facility] [address] [id number] [place] [address] Aug, [facility] [place] [facility] [address] [id number] [place] [address] Aug, [facility] [place] [facility] [address] [id number] [place] [address] Aug, [facility] [place] [facility] [address] [id number] [place] [address] Aug, [facility] [place] [facility] [address] [id number] [place] [address] Aug, [facility] [place] [facility] [address] [id number] [place] [address] Aug, [facility] [place] [facility] [address] [id number] [place] [address] Jun, [facility] [place] [facility] [address] [id number] [place] [address] Jun, [facility] [place] [facility] [address] [id number] [place] [address] Jun, [facility] [place] [facility] [address] [id number] [place] [address] Jun, [facility] [place] [facility] [address] [id number] [place] [address] May, [facility] [place] [facility] [address] [id number] [place] [address] May, [facility] [place] [facility] [address] [id number] [place] [address] May, [facility] [place] [facility] [address] [id number] [place] [address] May, [facility] [place] [facility] [address] [id number] [place] [address] May, [facility] [place] [facility] [address] [id number] [place] [address] May, [facility] [place] [facility] [address] [id number] [place] [address] May, [facility] [place] [facility] [address] [id number] [place] [address] May, [facility] [place] [facility] [address] [id number] [place] [address] Mar, [facility] [place] [facility] [address] [id number] [place] [address] Mar, [facility] [place] [facility] [address] [id number] [place] [address] Mar, [facility] [place] [facility] [address] [id number] [place] [address] Mar, [facility] [place] [facility] [address] [id number] [place] [address] Mar, [facility] [place] [facility] [address] [id number] [place] [address] Mar, [facility] [place] [facility] [address] [id number] [place] [address] Mar, [facility] [place] [facility] [address] [id number] [place] [address] Mar, [facility] [place] [facility] [address] [id number] [place] [address] Mar, [facility] [place] [facility] [address] [id number] [place] [address] Mar, [facility] [place] [facility] [address] [id number] [place] [address] Mar, [facility] [place] [facility] [address] [id number] [place] [address] Mar, [facility] [place] [facility] [address] [id number] [place] [address] Feb, [facility] [place] [facility] [address] [id number] [place] [address] Feb, [facility] [place] [facility] [address] [id number] [place] [address] Feb, [facility] [place] [facility] [address] [id number] [place] [address] Feb, [facility] [place] [facility] [address] [id number] [place] [address] Feb, [facility] [place] [facility] [address] [id number] [place] [address] Feb, [facility] [place] [facility] [address] [id number] [place] [address] Jan, [facility] [place] [facility] [address] [id number] [place] [address] Jan, [facility] [place] [facility] [address] [id number] [place] [address] Jan, [facility] [place] [facility] [address] [id number] [place] [address] Jan, [facility] [place] [facility] [address] [id number] [place] [address] Jan, [facility] [place] [facility] [address] [id number] [place] [address] Jan, [facility] [place] [facility] [address] [id number] [place] [address] Jan, [facility] [place] [facility] [address] [id number] [place] [address] Jan, [facility] [place] [facility] [address] [id number] [place] [address] Dec, [facility] [place] [facility] [address] [id number] [place] [address] Dec, [facility] [place] [facility] [address] [id number] [place] [address] Dec, [facility] [place] [facility] [address] [id number] [place] [address] Dec, [facility] [place] [facility] [address] [id number] [place] [address] Dec, [facility] [place] [facility] [address] [id number] [place] [address] Dec, [facility] [place] [facility] [address] [id number] [place] [address] Dec, [facility] [place] [facility] [address] [id number] [place] [address] Dec, [facility] [place] [facility] [address] [id number] [place] [address] October, [facility] [place] [facility] [address] [id number] [place] [address] October, [facility] [place] [facility] [address] [id number] [place] [address] Sep, [facility] [place] [facility] [address] [id number] [place] [address] Sep, [facility] [place] [facility] [address] [id number] [place] [address] Sep, [facility] [place] [facility] [address] [id number] [place] [address] Sep, [facility] [place] [facility] [address] [id number] [place] [address] Sep, [facility] [place] [facility] [address] [id number] [place] [address] Sep, [facility] [place] [facility] [address] [id number] [place] [address] Sep, [facility] [place] [facility] [address] [id number] [place] [address] Sep, [facility] [place] [facility] [address] [id number] [place] [address] Sep, [facility] [place] [facility] [address] [id number] [place] [address] Sep, [facility] [place] [facility] [address] [id number] [place] [address] Sep, [facility] [place] [facility] [address] [id number] [place] [address] Sep, [facility] [place] [facility] [address] [id number] [place] [address] Aug, [facility] [place] [facility] [address] [id number] [place] [address] Aug, [facility] [place] [facility] [address] [id number] [place] [address] Aug, [facility] [place] [facility] [address] [id number] [place] [address] Jun, [facility] [place] [facility] [address] [id number] [place] [address] Jun, [facility] [place] [facility] [address] [id number] [place] [address] Jun, [facility] [place] [facility] [address] [id number], [place] [address] Jun, [facility] [address] [id number] [place] [address] Jun, [facility] [place] [facility] [address] [id number] [place] [address] Jun, [facility] [place] [facility] [address] [facility] [id number] [place] [address] Jun, [facility] [place] [facility] [address] [id number] [place] [address] Jun, [facility] [place] [facility] [address] [id number] [place] [address] Jun, [facility] [place] [facility] [address] [id number] [place] [address] Jun, [facility] [address] [facility] [id number], [place] [address] May, [facility] [place] [facility] [address] [id number] [place] [address] May, [facility] [place] [facility] [address] [facility] [id number] [place] [address] May, [facility] [place] [facility] [address] [facility] [id number] [place] [address] May, [facility] [place] [facility] [address] [address] [id number], [place] [address] Apr, [facility] [place] [facility] [address] [id number], [place] [address] Apr, [facility] [place] [facility] [address] [id number] [place] [address] Apr, [facility] [place] [facility] [address] [facility] [id number] [place] [address] Apr, [facility] [place] [facility] [address] [facility] [id number], [place] [address] Apr, [facility] [place] [facility] [address] [id number] [place] [address] Apr, [facility] [place] [facility] [address] [id number] [place] [address] Apr, [facility] [place] [facility] [address] [id number] [place] [address] Apr, [facility] [place] [facility] [address] [id number] [place] [address] Mar, [facility] [place] [facility] [address] [id number] [place] [address] Mar, [facility] [place] [facility] [address] [id number] [place] [address] Mar, [facility] [place] [facility] [address] [id number] [place] [address] Mar, [facility] [place] [facility] [address] [id number] [place] [address] Mar, [facility] [place] [facility] [address] [id number] [place] [address] Feb, [facility] [place] [facility] [address] [id number] [place] [address] Feb, [facility] [place] [facility] [address] [id number] [place] [address] Feb, [facility] [place] [facility] [address] [id number] [place] [address] Feb, [facility] [place] [facility] [address] [id number] [place] [address] Feb, [facility] [place] [facility] [address] [id number] [place] [address] Jan, [facility] [place] [facility] [address] [id number] [place] [address] Jan, [facility] [place] [facility] [address] [id number] [place] [address] Nov, [facility] [address] [id number] [place] [address] Nov, [facility] [place] [facility] [address] [id number] [place] [address] Nov, [facility] [address] [facility] [id number] [place] [address] Nov, [facility] [place] [facility] [address] [id number] [place] [address] October, [facility] [address] [id number] [place] [address] Sep, [facility] [place] [facility] [address] [id number] [place] [address] Aug, [facility] [address] [id number] [place] [address] Aug, [facility] [place] [facility] [address] [id number], [place] [address] Aug, [facility] [address] [id number], [place] [address] Aug, [facility] [place] [facility] [address] [facility] [id number], [place] [address] Jul, [facility] [address] [id number], [place] [address] Jun, [facility] [place] [facility] [address] [id number], [place] [address] Jun, [facility] [place] [facility] [address] [id number], [place] [address] May, [facility] [place] [facility] [address] [facility] [id number], [place] [address] May, [facility] [place] [facility] [address] [id number] [place] [id number] Mar, [facility] [place] [facility] [address] [id number] [place] [address] Mar, [facility] [place] [facility] [address] [id number] [place] [address] Mar, 2011 [facility] [place] [facility] [address] [id number] [place] [address] Mar, [facility] [place] [facility] [address] [id number] [place] [address] Mar, 2011 [facility] [place] [facility] [address] [id number] [place] [address] Mar, [facility] [place] [facility] [address] [id number] [place] [address] Mar, [facility] [place] [facility] [address] [id number] [place] [address] Mar, [facility] [place] [facility] [address] [id number] [place] [address] Mar, [facility] [place] [facility] [address] [id number] [place] [address] Mar, [facility] [place] [facility] [address] [id number] [place] [address] 20 Mar, 2012 [facility] [place] [facility] [address] [id number] [place] [address] Mar, [facility] [place] [facility] [address] [id number] [place] [address] 17 Mar, 2012 [facility] [place] [facility] [address] [id number], [place] [address] 15 Mar, 2012 [facility] [place] [facility] [address] [id number] [place] [address] 15 Mar, 2012 [facility] [place] [facility] [address] [id number], [place] [address] 15 Mar, 2012 [facility] [place] [facility] [address] [id number], [place] [address] 15 Mar, 2012 [facility] [place] [facility] [address] [id number] [place] [address] Mar, [facility] [place] [facility] [address] [id number] [place] [address] Mar, [facility] [place] [facility] [address] [id number] [place] [address] Mar, [facility] [place] [facility] [address] [id number] [place] [address] Mar, [facility] [place] [facility] [address] [id number] [place] [address] Mar, [facility] [place] [facility] [address] [id number] [place] [address] Mar, [facility] [place] [facility] [address] [id number] [place] [address] 19 Feb, 2012 [facility] [place] [facility] [address] [id number] [place] [address] 18 Feb, 2012 [facility] [place] [facility] [address] [id number] [place] [address] 17 Feb, 2012 [facility] [place] [facility] [address] [id number] [place] [address] 14 Feb, 2012 [facility] [place] [facility] [address] [id number] [place] [address] 14 Feb, 2012 [facility] [place] [facility] [address] [id number] [place] [address] 12 Feb, 2012 [facility] [place] [facility] [address] [id number] [place] [address] 10 Feb, 2012 [facility] [place] [facility] [address] [id number] [place] [address] 31 Jan, 2012 [facility] [place] [facility] [address] [id number] [place] [address] 30 Jan, 2012 [facility] [place] [facility] [address] [id number] [place] [address] Jan, [facility] [place] [facility] [address] [id number] [place] [address] Jan, [facility] [place] [facility] [address] [id number] [place] [address] Jan, [facility] [place] [facility] [address] [id number] [place] [address] Jan, [facility] [place] [facility] [address] [id number] [place] [address] Jan, [facility] [place] [facility] [address] [id number] [place] [address] Jan, [facility] [place] [facility] [address] [id number] [place] [address] Jan, [facility] [place] [facility] [address] [id number] [place] [address] Jan, [facility] [place] [facility] [address] [id number] [place] [address] Dec, [facility] [place] [facility] [address] [id number] [place] [address] 24 Dec, 2011 [facility] [place] [facility] [address] [id number] [place] [address] Dec, [facility] [place] [facility] [address] [id number] [place] [address] Dec, [facility] [place] [facility] [address] [id number] [place] [address] 18 Dec, 2011 [facility] [place] [facility] [address] [id number] [place] [address] Dec, [facility] [place] [facility] [address] [id number] [place] [address] 16 Dec, 2011 [facility] [place] [facility] [address] [id number] [place] [address] 14 Dec, 2011 [facility] [place] [facility] [id number], [place] [address] Dec, [facility] [id number], [place] [address] Dec, [facility] [id number], [place] [address] Dec, [facility] [id number], [place] [address] Nov, [facility] [id number], [place] [address] Nov, [facility] [id number] [place] [address] Nov, [facility] [id number], [place] [address] Nov, [facility] [id number] [place] [address] Nov, [facility] [id number], [place] [address] Nov, [facility] [address], [place] [address] Nov, [facility] [id number], [place] [address] Nov, [facility] [address], [place] [address] Nov, [facility] [address] [id number], [place] [address] Nov, [facility] [address], [place] [address] October, IMMUNIZATIONS No Known Immunizations SOCIAL HISTORY Never Assessed [place]ASON [place] [place] VITAL SIGNS MEDICATIONS Unknown [...] hysterectomy-total 2005 Surgical History lower GI [place] -not sure results Surgical History EGD Hospitalization [...]
--- OUTSIDE RECORDS SUMMARY | 2018-11-18 20:21 | XMS REPORT ---
Author Author Migration, Doctor Organization [facility] Address Unknown Phone Unavailable Care Team Providers Care Community Educator Name Role Phone Migration, Doctor Unavailable Unavailable PROBLEMS Type Condition ICD9-CM Code EIJ73-UD Code Onset Dates Condition Status SNOMED Code Problem Elevated liver enzymes R74.8 Active 771349203 Problem Abnormal glucose R73.09 Active 399990699 Problem Hyperlipidemia LDL goal <100 E78.5 Active 94905670 Problem Hypokalemia E87.6 Active 37394105 Problem Major depressive disorder, recurrent episode, moderate F33.1 Active 461208016 Problem Tremor, hereditary, benign G25.0 Active 119298772 Problem Chronic migraine without aura with status migrainosus, not intractable G43.701 Active 776220270 Problem 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 Active 56062261 Problem Other chronic pain G89.29 Active 47508163 Problem Seizure disorder G40.909 Active 356445357 Problem Other chronic pain G89.29 Active 55614944 Problem Essential hypertension I10 Active 77632656 Problem Reflux gastritis K29.60 Active 88229692 Problem Irritable bowel K58.9 Active 44094840 Problem Primary insomnia F51.01 Active 9436966 Problem Moderate persistent asthma without complication J45.40 Active 430218556 Problem Moderate persistent asthma with exacerbation J45.41 Active 793115884 Problem Intractable chronic migraine without aura and with status migrainosus G43.711 Active 171362357 ALLERGIES No Information ENCOUNTERS Encounter Location Date Diagnosis [facility] [address] [facility] [id number] [address] Sep, [facility] [address] [id number] [address] Sep, Viral gastroenteritis A08.4 [facility] [address] [id number] [address] Aug, Headache R51 ; Viral upper respiratory tract infection J06.9 and Nausea R11.0 [facility] [id number] [address] Jun, Reflux gastritis K29.60 [facility] [id number] [place] [address] Jun, [facility] [id number] [place] [address] May, [facility] [address] [address] May, [facility] [id number] [place] [address] Apr, Bowel habit changes R19.4 and Acute cystitis without hematuria N30.00 [facility] [id number] [place] [address] Apr, Pain in right shoulder M25.511 [facility] [address] [address] Apr, [facility] [id number] [place] [address] Mar, [facility] [id number] [place] [address] Mar, [facility] [id number] [place] [address] Mar, [facility] [id number] [place] [address] Mar, [facility] [id number] [place] [address] 14 Feb, 2018 [facility] [id number] [place] [address] 10 Feb, 2018 [facility] [id number] [place] [address] 05 Feb, 2018 [facility] [id number] [place] [address] Jan, [facility] [id number] [place] [address] Dec, [place] [address] [address] Dec, Other chronic pain G89.29 ; Pain in right shoulder M25.511 and Liver enzyme elevation R74.8 [place] [address] [address] Nov, Other chronic pain G89.29 and Pain in right shoulder M25.511 [place] [address] [address] October, [facility] [address] [address] October, Right shoulder pain, unspecified chronicity M25.511 [place] [address] [address] Aug, Elevated liver enzymes R74.8 and Hyperlipidemia LDL goal <100 E78.5 [place] [address] [address] Aug, [place] [id number] [place] [address] Jul, [place] [id number] [place] [address] Jul, Intractable chronic migraine without aura and with status migrainosus G43.711 ; Fever, unspecified fever cause R50.9 and Elevated liver enzymes R74.8 [place] [id number] [place] [address] Jun, Difficulty urinating R39.198 and Moderate persistent asthma with exacerbation J45.41 [place] [address] [address] Jun, [place] [id number] [place] [address] Jun, Moderate persistent asthma with exacerbation J45.41 [place] [address] [address] May, Elevated liver enzymes R74.8 and Hyperlipidemia LDL goal <100 E78.5 [place] [address] [address] May, Elevated lipids E78.5 [place] [address] [address] Apr, Elevated liver enzymes R74.8 [place] [address] [address] Apr, Elevated liver enzymes R74.8 [place] [id number] [place] [address] Apr, Superior glenoid labrum lesion of right shoulder, subsequent encounter S43.431D [place] [id number] [place] [address] Apr, Hypokalemia E87.6 ; Major depressive disorder, recurrent episode, moderate F33.1 ; Other abnormalities of breathing R06.89 and Dyspnea, unspecified R06.00 [facility] [id number] [place] [address] Mar, Moderate persistent asthma without complication J45.40 [place] [id number] [place] [address] Mar, Impingement syndrome of right shoulder M75.41 [place] [id number] [place] [address] Jan, [place] [id number] [place] [address] Jan, Chronic migraine without aura with status migrainosus, not intractable G43.701 ; Essential hypertension I10 ; Irritable bowel K58.9 ; Primary insomnia F51.01 and Hypokalemia E87.6 [facility] [address] [id number] [address] Dec, [facility] [id number] [place] [address] Dec, [facility] [id number] [place] [address] Dec, Essential hypertension I10 [facility] [id number] [place] [address] Dec, Pain in right shoulder M25.511 [facility] [id number] [place] [address] Nov, Essential hypertension I10 [facility] [id number] [place] [address] 14 Nov, 2016 Pain in right shoulder M25.511 [facility] [id number] [place] [address] Nov, Pain in right shoulder M25.511 [facility] [id number] [place] [address] October, [facility] [id number] [place] [address] October, Pain in right shoulder M25.511 [facility] [id number] [place] [address] Sep, Arm pain, right M79.601 [facility] [id number] [address] Sep, [facility] [id number] [place] [address] Sep, Abnormal glucose R73.09 and Elevated lipids E78.5 [facility] [id number] [place] [address] Sep, Abnormal glucose R73.09 and Elevated lipids E78.5 [place] [id number] [place] [address] Aug, [place] [id number] [place] [address] Aug, [place] [id number] [place] [address] Aug, [place] [address] [address] Aug, 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 ; Hypokalemia E87.6 ; Irritable bowel K58.9 ; Essential hypertension I10 ; Pain in right shoulder M25.511 ; Seizure disorder G40.909 and Screening for lipid disorders Z13.220 [place] [id number] [place] [address] Jul, Other chronic pain G89.29 and Pain in right shoulder M25.511 [place] [id number] [place] [address] 14 Jul, 2016 Biceps muscle strain, right, subsequent encounter S46.111D [facility] [place] [id number] [place] [address] 08 Jul, 2016 Arm pain, right M79.601 [place] [id number] [place] [address] Jun, [place] [id number] [place] [address] Jun, Acute non-recurrent frontal sinusitis J01.10 [place] [id number] [place] [address] 14 May, 2016 Generalized abdominal pain R10.84 ; Urinary tract infection without hematuria, site unspecified N39.0 ; Hypokalemia E87.6 ; Essential hypertension I10 ; Screening for lipid disorders Z13.220 ; Seizure R56.9 and Low back pain M54.5 [place] [id number] [place] [address] Apr, [facility] [id number] [place] [address] Feb, [facility] [id number] [place] [address] Jan, [facility] [id number] [place] [address] Dec, 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 ; Hypokalemia E87.6 ; Irritable bowel K58.9 and Nausea R11.0 [facility] [id number] [place] [address] Dec, Generalized abdominal pain R10.84 [place] [id number] [place] [address] Nov, [facility] [address] [address] Aug, Acute bronchitis J20.9 [place] [id number] [place] [address] Aug, [facility] [id number] [place] [address] Aug, Low back pain M54.5 ; Hypokalemia E87.6 ; Chronic migraine without aura with status migrainosus, not intractable G43.701 ; Tremor, hereditary, benign G25.0 ; Irritable bowel K58.9 ; Essential hypertension I10 and Seizure R56.9 [facility] [id number] [place] [address] Aug, [place] [address] [address] Jul, [facility] [id number] [place] [address] Jul, Low back pain M54.5 ; Hypokalemia E87.6 ; Chronic migraine without aura with status migrainosus, not intractable G43.701 ; Tremor, hereditary, benign G25.0 ; Irritable bowel K58.9 ; Essential hypertension I10 and Seizure R56.9 [place] [address] [address] 20 Jun, 2015 Hypokalemia E87.6 [place] [address] [address] 15 Jun, 2015 ADD (attention deficit disorder) without hyperactivity F90.0 ; Generalized anxiety disorder F41.1 and Major depressive disorder, recurrent episode, moderate F33.1 [place] [address] [address] 13 Jun, 2015 Low back pain M54.5 ; Hypokalemia E87.6 ; Chronic migraine without aura with status migrainosus, not intractable G43.701 ; Tremor, hereditary, benign G25.0 ; Irritable bowel K58.9 ; Essential hypertension I10 and Seizure R56.9 [place] [address] [address] Jun, [place] [address] [address] May, [place] [address] [address] 30 May, 2015 Low back pain M54.5 ; Hypokalemia E87.6 ; Chronic migraine without aura with status migrainosus, not intractable G43.701 ; Tremor, hereditary, benign G25.0 ; Irritable bowel K58.9 ; Essential hypertension I10 ; Seizure R56.9 and Tinea capitis B35.0 [place] [id number] [place] [address] 17 May, 2015 Low back pain M54.5 ; Hypokalemia E87.6 ; Chronic migraine without aura with status migrainosus, not intractable G43.701 ; Tremor, hereditary, benign G25.0 ; Irritable bowel K58.9 ; Essential hypertension I10 ; Seizure R56.9 ; Otitis media, left H66.92 and Dysuria 788.1 [place] [id number] [place] [address] May, Tooth pain K08.8 [place] [id number] [place] [address] May, [place] [address] [address] May, Low back pain M54.5 ; Hypokalemia E87.6 ; Chronic migraine without aura with status migrainosus, not intractable G43.701 ; Tremor, hereditary, benign G25.0 ; Irritable bowel K58.9 and Essential hypertension I10 [place] [id number] [place] [address] Apr, Low back pain M54.5 ; Hypokalemia E87.6 ; Chronic migraine without aura with status migrainosus, not intractable G43.701 ; Tremor, hereditary, benign G25.0 and Irritable bowel K58.9 [place] [id number] [place] [address] Apr, Low back pain M54.5 [place] [id number] [place] [address] Mar, [place] [address] [address] Mar, Irritable bowel syndrome with diarrhea K58.0 [place] [id number] [place] [address] Mar, [place] [id number] [place] [address] Feb, [facility] [id number] [place] [address] Feb, [place] [id number] [address] Feb, Irritable bowel syndrome 564.1 ; Lumbago 724.2 and Cervical pain (neck) 723.1 [facility] [id number] [place] [address] Dec, Major depressive disorder, recurrent episode, moderate 296.32 and Generalized anxiety disorder 300.02 [facility] [id number] [place] [address] Nov, [facility] [id number] [place] [address] Nov, Major depressive disorder, recurrent episode, moderate 296.32 [facility] [id number] [place] [address] Nov, Constipation 564.00 ; Nausea & vomiting 787.01 and Abdominal pain 789.00 [facility] [id number] [place] [address] Nov, [facility] [id number] [place] [address] October, [facility] [id number] [place] [address] October, [facility] [id number] [address] October, [facility] [id number] [place] [address] October, [facility] [address] [place] [address] Sep, [facility] [id number] [place] [address] Sep, Dysuria 788.1 [facility] [id number] [place] [address] Sep, [facility] [id number] [place] [address] 14 Sep, 2014 [facility] [place] [facility] [address] [id number] [place] [address] 13 Sep, 2014 [facility] [place] [facility] [address] [id number] [place] [address] 30 Aug, 2014 [facility] [place] [facility] [address] [id number] [place] [address] 30 Aug, 2014 [facility] [place] [facility] [address] [id number] [place] [address] Aug, [facility] [place] [facility] [address] [id number] [place] [address] Aug, [facility] [place] [facility] [address] [id number] [place] [address] Aug, [facility] [place] [facility] [address] [id number] [place] [address] Aug, [facility] [place] [facility] [address] [id number] [place] [address] Aug, [facility] [place] [facility] [address] [id number] [place] [address] Aug, [facility] [place] [facility] [address] [id number] [place] [address] Aug, [facility] [place] [facility] [address] [id number] [place] [address] Aug, [facility] [place] [facility] [address] [id number] [place] [address] Jun, [facility] [place] [facility] [address] [id number] [place] [address] Jun, [facility] [place] [facility] [address] [id number] [place] [address] Jun, [facility] [place] [facility] [address] [id number] [place] [address] Jun, [facility] [place] [facility] [address] [id number] [place] [address] May, [facility] [place] [facility] [address] [id number] [place] [address] May, [facility] [place] [facility] [address] [id number] [place] [address] May, [facility] [place] [facility] [address] [id number] [place] [address] May, [facility] [place] [facility] [address] [id number] [place] [address] May, [facility] [place] [facility] [address] [id number] [place] [address] May, [facility] [place] [facility] [address] [id number] [place] [address] May, [facility] [place] [facility] [address] [id number] [place] [address] May, [facility] [place] [facility] [address] [id number] [place] [address] Mar, [facility] [place] [facility] [address] [id number] [place] [address] Mar, [facility] [place] [facility] [address] [id number] [place] [address] Mar, [facility] [place] [facility] [address] [id number] [place] [address] Mar, [facility] [place] [facility] [address] [id number] [place] [address] Mar, [facility] [place] [facility] [address] [id number] [place] [address] Mar, [facility] [place] [facility] [address] [id number] [place] [address] Mar, [facility] [place] [facility] [address] [id number] [place] [address] Mar, [facility] [place] [facility] [address] [id number] [place] [address] Mar, [facility] [place] [facility] [address] [id number] [place] [address] Mar, [facility] [place] [facility] [address] [id number] [place] [address] Mar, [facility] [place] [facility] [address] [id number] [place] [address] Mar, [facility] [place] [facility] [address] [id number] [place] [address] Feb, [facility] [place] [facility] [address] [id number] [place] [address] Feb, [facility] [place] [facility] [address] [id number] [place] [address] Feb, [facility] [place] [facility] [address] [id number] [place] [address] Feb, [facility] [place] [facility] [address] [id number] [place] [address] Feb, [facility] [place] [facility] [address] [id number] [place] [address] Feb, [facility] [place] [facility] [address] [id number] [place] [address] Jan, [facility] [place] [facility] [address] [id number] [place] [address] Jan, [facility] [place] [facility] [address] [id number] [place] [address] Jan, [facility] [place] [facility] [address] [id number] [place] [address] Jan, [facility] [place] [facility] [address] [id number] [place] [address] Jan, [facility] [place] [facility] [address] [id number] [place] [address] Jan, [facility] [place] [facility] [address] [id number] [place] [address] Jan, [facility] [place] [facility] [address] [id number] [place] [address] Jan, [facility] [place] [facility] [address] [id number] [place] [address] Dec, [facility] [place] [facility] [address] [id number] [place] [address] Dec, [facility] [place] [facility] [address] [id number] [place] [address] Dec, [facility] [place] [facility] [address] [id number] [place] [address] Dec, [facility] [place] [facility] [address] [id number] [place] [address] Dec, [facility] [place] [facility] [address] [id number] [place] [address] Dec, [facility] [place] [facility] [address] [id number] [place] [address] Dec, [facility] [place] [facility] [address] [id number] [place] [address] Dec, [facility] [place] [facility] [address] [id number] [place] [address] October, [facility] [place] [facility] [address] [id number] [place] [address] October, [facility] [place] [facility] [address] [id number] [place] [address] Sep, [facility] [place] [facility] [address] [id number] [place] [address] Sep, [facility] [place] [facility] [address] [id number] [place] [address] Sep, [facility] [place] [facility] [address] [id number] [place] [address] Sep, [facility] [place] [facility] [address] [id number] [place] [address] Sep, [facility] [place] [facility] [address] [id number] [place] [address] Sep, [facility] [place] [facility] [address] [id number] [place] [address] Sep, [facility] [place] [facility] [address] [id number] [place] [address] Sep, [facility] [place] [facility] [address] [id number] [place] [address] Sep, [facility] [place] [facility] [address] [id number] [place] [address] Sep, [facility] [place] [facility] [address] [id number] [place] [address] Sep, [facility] [place] [facility] [address] [id number] [place] [address] Sep, [facility] [place] [facility] [address] [id number] [place] [address] Aug, [facility] [place] [facility] [address] [id number] [place] [address] Aug, [facility] [place] [facility] [address] [id number] [place] [address] Aug, [facility] [place] [facility] [address] [id number] [place] [address] Jun, [facility] [place] [facility] [address] [id number] [place] [address] Jun, [facility] [place] [facility] [address] [id number] [place] [address] Jun, [facility] [place] [facility] [address] [id number] [place] [address] Jun, [facility] [address] [id number] [place] [address] Jun, [facility] [place] [facility] [address] [id number] [place] [address] Jun, [facility] [place] [facility] [address] [facility] [id number] [place] [address] Jun, [facility] [place] [facility] [address] [id number] [place] [address] Jun, [facility] [place] [facility] [address] [id number] [place] [address] Jun, [facility] [place] [facility] [address] [id number] [place] [address] Jun, [facility] [address] [facility] [id number] [place] [address] May, [facility] [place] [facility] [address] [id number] [place] [address] May, [facility] [place] [facility] [address] [facility] [id number] [place] [address] May, [facility] [place] [facility] [address] [facility] [id number] [place] [address] May, [facility] [place] [facility] [address] [id number] [place] [address] Apr, [facility] [place] [facility] [address] [id number] [place] [address] Apr, [facility] [place] [facility] [address] [id number] [place] [address] Apr, [facility] [place] [facility] [address] [facility] [id number] [place] [address] Apr, [facility] [place] [facility] [address] [facility] [id number] [place] [address] Apr, [facility] [place] [facility] [address] [id number] [place] [address] Apr, [facility] [place] [facility] [address] [id number] [place] [address] Apr, [facility] [place] [facility] [address] [id number] [place] [address] Apr, [facility] [place] [facility] [address] [id number] [place] [address] Mar, [facility] [place] [facility] [address] [id number] [place] [address] Mar, [facility] [place] [facility] [address] [id number] [place] [address] Mar, [facility] [place] [facility] [address] [id number] [place] [address] Mar, [facility] [place] [facility] [address] [id number] [place] [address] Mar, [facility] [place] [facility] [address] [id number] [place] [address] Feb, [facility] [place] [facility] [address] [id number] [place] [address] Feb, [facility] [place] [facility] [address] [id number] [place] [address] Feb, [facility] [place] [facility] [address] [id number] [place] [address] Feb, [facility] [place] [facility] [address] [id number] [place] [address] Feb, [facility] [place] [facility] [address] [id number] [place] [address] Jan, [facility] [place] [facility] [address] [id number] [place] [address] Jan, [facility] [place] [facility] [address] [id number] [place] [address] Nov, [facility] [address] [id number] [place] [address] Nov, [facility] [place] [facility] [address] [id number] [place] [address] Nov, [facility] [address] [facility] [id number] [place] [address] Nov, [facility] [place] [facility] [address] [id number] [place] [address] October, [facility] [address] [id number] [place] [address] Sep, [facility] [place] [facility] [address] [id number] [place] [address] Aug, [facility] [address] [id number] [place] [address] Aug, [facility] [place] [facility] [address] [id number] [place] [address] Aug, [facility] [address] [id number] [place] [address] Aug, [facility] [place] [facility] [address] [facility] [id number] [place] [address] Jul, [facility] [address] [id number] [place] [address] Jun, [facility] [place] [facility] [address] [id number] [place] [address] Jun, [facility] [place] [facility] [address] [id number] [place] [address] May, [facility] [place] [facility] [address] [facility] [id number] [place] [address] May, [facility] [place] [facility] [address] [id number] [place] [id number] Mar, [facility] [place] [facility] [address] [id number] [place] [address] Mar, [facility] [place] [facility] [address] [id number] [place] [address] Mar, 2011 [facility] [place] [facility] [address] [id number] [place] [address] Mar, [facility] [place] [facility] [address] [id number] [place] [address] Mar, 2011 [facility] [place] [facility] [address] [id number] [place] [address] Mar, [facility] [place] [facility] [address] [id number] [place] [address] Mar, [facility] [place] [facility] [address] [id number] [place] [address] Mar, [facility] [place] [facility] [address] [id number] [place] [address] Mar, [facility] [place] [facility] [address] [id number] [place] [address] Mar, [facility] [place] [facility] [address] [id number] [place] [address] 20 Mar, 2012 [facility] [place] [facility] [address] [id number] [place] [address] Mar, [facility] [place] [facility] [address] [id number] [place] [address] 17 Mar, 2012 [facility] [place] [facility] [address] [id number] [place] [address] 15 Mar, 2012 [facility] [place] [facility] [address] [id number] [place] [address] 15 Mar, 2012 [facility] [place] [facility] [address] [id number] [place] [address] 15 Mar, 2012 [facility] [place] [facility] [address] [id number] [place] [address] 15 Mar, 2012 [facility] [place] [facility] [address] [id number] [place] [address] Mar, [facility] [place] [facility] [address] [id number] [place] [address] Mar, [facility] [place] [facility] [address] [id number] [place] [address] Mar, [facility] [place] [facility] [address] [id number] [place] [address] Mar, [facility] [place] [facility] [address] [id number] [place] [address] Mar, [facility] [place] [facility] [address] [id number] [place] [address] Mar, [facility] [place] [facility] [address] [id number] [place] [address] 19 Feb, 2012 [facility] [place] [facility] [address] [id number] [place] [address] 18 Feb, 2012 [facility] [place] [facility] [address] [id number] [place] [address] 17 Feb, 2012 [facility] [place] [facility] [address] [id number] [place] [address] 14 Feb, 2012 [facility] [place] [facility] [address] [id number] [place] [address] 14 Feb, 2012 [facility] [place] [facility] [address] [id number] [place] [address] 12 Feb, 2012 [facility] [place] [facility] [address] [id number] [place] [address] 10 Feb, 2012 [facility] [place] [facility] [address] [id number] [place] [address] 31 Jan, 2012 [facility] [place] [facility] [address] [id number] [place] [address] 30 Jan, 2012 [facility] [place] [facility] [address] [id number] [place] [address] Jan, [facility] [place] [facility] [address] [id number] [place] [address] Jan, [facility] [place] [facility] [address] [id number] [place] [address] Jan, [facility] [place] [facility] [address] [id number] [place] [address] Jan, [facility] [place] [facility] [address] [id number] [place] [address] Jan, [facility] [place] [facility] [address] [id number] [place] [address] Jan, [facility] [place] [facility] [address] [id number] [place] [address] Jan, [facility] [place] [facility] [address] [id number] [place] [address] Jan, [facility] [place] [facility] [address] [id number] [place] [address] Dec, [facility] [place] [facility] [address] [id number] [place] [address] 24 Dec, 2011 [facility] [place] [facility] [address] [id number] [place] [address] Dec, [facility] [place] [facility] [address] [id number] [place] [address] Dec, [facility] [place] [facility] [address] [id number] [place] [address] 18 Dec, 2011 [facility] [place] [facility] [address] [id number] [place] [address] Dec, [facility] [place] [facility] [address] [id number] [place] [address] 16 Dec, 2011 [facility] [place] [facility] [address] [id number] [place] [address] 14 Dec, 2011 [facility] [place] [facility] [id number] [place] [address] Dec, [facility] [id number] [place] [address] Dec, [facility] [id number] [place] [address] Dec, [facility] [id number] [place] [address] Nov, [facility] [id number] [place] [address] Nov, [facility] [id number] [place] [address] Nov, [facility] [id number] [place] [address] Nov, [facility] [id number] [place] [address] Nov, [facility] [id number] [place] [address] Nov, [facility] [id number] [place] [address] Nov, [facility] [id number] [place] [address] Nov, [facility] [id number] [place] [address] Nov, [facility] [id number] [address] Nov, [facility] [id number] [place] [address] October, IMMUNIZATIONS No Known Immunizations SOCIAL HISTORY [...] hysterectomy-total 2005 Surgical History lower GI [facility] [place] -not sure results Surgical History EGD Hospitalization [...]
--- OUTSIDE RECORDS SUMMARY | 2018-11-18 20:22 | XMS REPORT ---
Author Author Migration, Doctor Organization [facility] Address Unknown Phone Unavailable Care Team Providers Care Computer Programming Supervisor Name Role Phone Migration, Doctor Unavailable Unavailable PROBLEMS Type Condition ICD9-CM Code LXN40-VI Code Onset Dates Condition Status SNOMED Code Problem Elevated liver enzymes R74.8 Active 264889802 Problem Abnormal glucose R73.09 Active 443271503 Problem Hyperlipidemia LDL goal <100 E78.5 Active 08928103 Problem Hypokalemia E87.6 Active 84306767 Problem Major depressive disorder, recurrent episode, moderate F33.1 Active 460217537 Problem Tremor, hereditary, benign G25.0 Active 288458599 Problem Chronic migraine without aura with status migrainosus, not intractable G43.701 Active 072579962 Problem 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 Active 94805938 Problem Other chronic pain G89.29 Active 22244546 Problem Seizure disorder G40.909 Active 809281182 Problem Other chronic pain G89.29 Active 85248396 Problem Essential hypertension I10 Active 76896512 Problem Reflux gastritis K29.60 Active 80218379 Problem Irritable bowel K58.9 Active 93819781 Problem Primary insomnia F51.01 Active 0853310 Problem Moderate persistent asthma without complication J45.40 Active 608051620 Problem Moderate persistent asthma with exacerbation J45.41 Active 996089479 Problem Intractable chronic migraine without aura and with status migrainosus G43.711 Active 195344804 ALLERGIES No Information ENCOUNTERS Encounter Location Date Diagnosis [facility] [address] [facility] [id number] [address] Sep, [facility] [address] [id number], [place] [address] Sep, Viral gastroenteritis A08.4 [facility] [address] [id number], [place] [address] Aug, Headache R51 ; Viral upper respiratory tract infection J06.9 and Nausea R11.0 [facility] [address] [id number] [address] Jun, Reflux gastritis K29.60 [facility] [id number] [place] [address] Jun, [facility] [id number] [place] [address] May, [facility] [address] [address] May, [facility] [id number] [place] [address] Apr, Bowel habit changes R19.4 and Acute cystitis without hematuria N30.00 [facility] [id number] [place] [address] Apr, Pain in right shoulder M25.511 [facility] [address] [address] Apr, [facility] [id number] [place] [address] Mar, [facility] [id number] [place] [address] Mar, [facility] [id number] [place] [address] Mar, [facility] [id number] [place] [address] Mar, [facility] [id number] [place] [address] 14 Feb, 2018 [facility] [id number] [place] [address] 10 Feb, 2018 [facility] [id number] [place] [address] 05 Feb, 2018 [facility] [id number] [place] [address] Jan, [facility] [id number] [place] [address] Dec, [address] [address] Dec, Other chronic pain G89.29 ; Pain in right shoulder M25.511 and Liver enzyme elevation R74.8 [place] [address] [address] Nov, Other chronic pain G89.29 and Pain in right shoulder M25.511 [place] [address] [address] October, [facility] [address] [address] October, Right shoulder pain, unspecified chronicity M25.511 [place] [address] [address] Aug, Elevated liver enzymes R74.8 and Hyperlipidemia LDL goal <100 E78.5 [place] [address] [address] Aug, [place] [id number] [place] [address] Jul, [place] [id number] [place] [address] Jul, Intractable chronic migraine without aura and with status migrainosus G43.711 ; Fever, unspecified fever cause R50.9 and Elevated liver enzymes R74.8 [place] [id number] [place] [address] Jun, Difficulty urinating R39.198 and Moderate persistent asthma with exacerbation J45.41 [place] [address] [address] Jun, [place] [id number] [place] [address] Jun, Moderate persistent asthma with exacerbation J45.41 [place] [address] [address] May, Elevated liver enzymes R74.8 and Hyperlipidemia LDL goal <100 E78.5 [place] [address] [address] May, Elevated lipids E78.5 [place] [address] [address] Apr, Elevated liver enzymes R74.8 [place] [address] [address] Apr, Elevated liver enzymes R74.8 [place] [id number] [place] [address] Apr, Superior glenoid labrum lesion of right shoulder, subsequent encounter S43.431D [place] [id number] [place] [address] Apr, Hypokalemia E87.6 ; Major depressive disorder, recurrent episode, moderate F33.1 ; Other abnormalities of breathing R06.89 and Dyspnea, unspecified R06.00 [facility] [id number] [place] [address] Mar, Moderate persistent asthma without complication J45.40 [place] [id number] [place] [address] Mar, Impingement syndrome of right shoulder M75.41 [place] [id number] [place] [address] Jan, [place] [id number] [place] [address] Jan, Chronic migraine without aura with status migrainosus, not intractable G43.701 ; Essential hypertension I10 ; Irritable bowel K58.9 ; Primary insomnia F51.01 and Hypokalemia E87.6 [facility] [address] [id number] [address] Dec, [facility] [id number] [place] [address] Dec, [facility] [id number] [place] [address] Dec, Essential hypertension I10 [facility] [id number] [place] [address] Dec, Pain in right shoulder M25.511 [facility] [id number] [place] [address] Nov, Essential hypertension I10 [facility] [id number] [place] [address] 14 Nov, 2016 Pain in right shoulder M25.511 [facility] [id number] [place] [address] Nov, Pain in right shoulder M25.511 [facility] [id number] [place] [address] October, [facility] [id number] [place] [address] October, Pain in right shoulder M25.511 [facility] [id number] [place] [address] Sep, Arm pain, right M79.601 [facility] [address] [id number] [address] Sep, [facility] [id number] [place] [address] Sep, Abnormal glucose R73.09 and Elevated lipids E78.5 [facility] [id number] [place] [address] Sep, Abnormal glucose R73.09 and Elevated lipids E78.5 [place] [id number] [place] [address] Aug, [place] [id number] [place] [address] Aug, [place] [id number] [place] [address] Aug, [place] [address] [address] Aug, 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 ; Hypokalemia E87.6 ; Irritable bowel K58.9 ; Essential hypertension I10 ; Pain in right shoulder M25.511 ; Seizure disorder G40.909 and Screening for lipid disorders Z13.220 [place] [id number] [place] [address] Jul, Other chronic pain G89.29 and Pain in right shoulder M25.511 [place] [id number] [place] [address] 14 Jul, 2016 Biceps muscle strain, right, subsequent encounter S46.111D [facility] [place] [id number] [place] [address] 08 Jul, 2016 Arm pain, right M79.601 [place] [id number] [place] [address] Jun, [place] [id number] [place] [address] Jun, Acute non-recurrent frontal sinusitis J01.10 [place] [id number] [place] [address] 14 May, 2016 Generalized abdominal pain R10.84 ; Urinary tract infection without hematuria, site unspecified N39.0 ; Hypokalemia E87.6 ; Essential hypertension I10 ; Screening for lipid disorders Z13.220 ; Seizure R56.9 and Low back pain M54.5 [place] [id number] [place] [address] Apr, [facility] [id number] [place] [address] Feb, [facility] [id number] [place] [address] Jan, [facility] [id number] [place] [address] Dec, 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 ; Hypokalemia E87.6 ; Irritable bowel K58.9 and Nausea R11.0 [facility] [id number] [place] [address] Dec, Generalized abdominal pain R10.84 [place] [id number] [place] [address] Nov, [facility] [address] [address] Aug, Acute bronchitis J20.9 [place] [id number] [place] [address] Aug, [facility] [id number] [place] [address] Aug, Low back pain M54.5 ; Hypokalemia E87.6 ; Chronic migraine without aura with status migrainosus, not intractable G43.701 ; Tremor, hereditary, benign G25.0 ; Irritable bowel K58.9 ; Essential hypertension I10 and Seizure R56.9 [facility] [id number] [place] [address] Aug, [place] [address] [address] Jul, [facility] [id number] [place] [address] Jul, Low back pain M54.5 ; Hypokalemia E87.6 ; Chronic migraine without aura with status migrainosus, not intractable G43.701 ; Tremor, hereditary, benign G25.0 ; Irritable bowel K58.9 ; Essential hypertension I10 and Seizure R56.9 [address] [address] [address] 20 Jun, 2015 Hypokalemia E87.6 [place] [address] [address] 15 Jun, 2015 ADD (attention deficit disorder) without hyperactivity F90.0 ; Generalized anxiety disorder F41.1 and Major depressive disorder, recurrent episode, moderate F33.1 [place] [address] [address] 13 Jun, 2015 Low back pain M54.5 ; Hypokalemia E87.6 ; Chronic migraine without aura with status migrainosus, not intractable G43.701 ; Tremor, hereditary, benign G25.0 ; Irritable bowel K58.9 ; Essential hypertension I10 and Seizure R56.9 [place] [address] [address] Jun, [place] [address] [address] May, [address] [address] [address] 30 May, 2015 Low back pain M54.5 ; Hypokalemia E87.6 ; Chronic migraine without aura with status migrainosus, not intractable G43.701 ; Tremor, hereditary, benign G25.0 ; Irritable bowel K58.9 ; Essential hypertension I10 ; Seizure R56.9 and Tinea capitis B35.0 [place] [id number] [place] [address] 17 May, 2015 Low back pain M54.5 ; Hypokalemia E87.6 ; Chronic migraine without aura with status migrainosus, not intractable G43.701 ; Tremor, hereditary, benign G25.0 ; Irritable bowel K58.9 ; Essential hypertension I10 ; Seizure R56.9 ; Otitis media, left H66.92 and Dysuria 788.1 [place] [id number] [place] [address] May, Tooth pain K08.8 [place] [id number] [place] [address] May, [place] [address] [address] May, Low back pain M54.5 ; Hypokalemia E87.6 ; Chronic migraine without aura with status migrainosus, not intractable G43.701 ; Tremor, hereditary, benign G25.0 ; Irritable bowel K58.9 and Essential hypertension I10 [place] [id number] [place] [address] Apr, Low back pain M54.5 ; Hypokalemia E87.6 ; Chronic migraine without aura with status migrainosus, not intractable G43.701 ; Tremor, hereditary, benign G25.0 and Irritable bowel K58.9 [place] [id number] [place] [address] Apr, Low back pain M54.5 [place] [id number] [place] [address] Mar, [place] [address] [address] Mar, Irritable bowel syndrome with diarrhea K58.0 [place] [id number] [place] [address] Mar, [place] [id number] [place] [address] Feb, [facility] [id number] [place] [address] Feb, [place] [address] [id number] [address] Feb, Irritable bowel syndrome 564.1 ; Lumbago 724.2 and Cervical pain (neck) 723.1 [facility] [id number] [place] [address] Dec, Major depressive disorder, recurrent episode, moderate 296.32 and Generalized anxiety disorder 300.02 [facility] [id number] [place] [address] Nov, [facility] [id number] [place] [address] Nov, Major depressive disorder, recurrent episode, moderate 296.32 [facility] [id number] [place] [address] Nov, Constipation 564.00 ; Nausea & vomiting 787.01 and Abdominal pain 789.00 [facility] [id number] [place] [address] Nov, [facility] [id number] [place] [address] October, [facility] [id number] [place] [address] October, [facility] [address] [id number] [address] October, [facility] [id number] [place] [address] October, [facility] [id number] [place] [address] Sep, [facility] [id number] [place] [address] Sep, Dysuria 788.1 [facility] [id number] [place] [address] Sep, [facility] [id number] [place] [address] 14 Sep, 2014 [facility] [place] [facility] [address] [id number] [place] [address] 13 Sep, 2014 [facility] [place] [facility] [address] [id number] [place] [address] 30 Aug, 2014 [facility] [place] [facility] [address] [id number] [place] [address] 30 Aug, 2014 [facility] [place] [facility] [address] [id number] [place] [address] Aug, [facility] [place] [facility] [address] [id number] [place] [address] Aug, [facility] [place] [facility] [address] [id number] [place] [address] Aug, [facility] [place] [facility] [address] [id number] [place] [address] Aug, [facility] [place] [facility] [address] [id number] [place] [address] Aug, [facility] [place] [facility] [address] [id number] [place] [address] Aug, [facility] [place] [facility] [address] [id number] [place] [address] Aug, [facility] [place] [facility] [address] [id number] [place] [address] Aug, [facility] [place] [facility] [address] [id number] [place] [address] Jun, [facility] [place] [facility] [address] [id number] [place] [address] Jun, [facility] [place] [facility] [address] [id number] [place] [address] Jun, [facility] [place] [facility] [address] [id number] [place] [address] Jun, [facility] [place] [facility] [address] [id number] [place] [address] May, [facility] [place] [facility] [address] [id number] [place] [address] May, [facility] [place] [facility] [address] [id number] [place] [address] May, [facility] [place] [facility] [address] [id number] [place] [address] May, [facility] [place] [facility] [address] [id number] [place] [address] May, [facility] [place] [facility] [address] [id number] [place] [address] May, [facility] [place] [facility] [address] [id number] [place] [address] May, [facility] [place] [facility] [address] [id number] [place] [address] May, [facility] [place] [facility] [address] [id number] [place] [address] Mar, [facility] [place] [facility] [address] [id number] [place] [address] Mar, [facility] [place] [facility] [address] [id number] [place] [address] Mar, [facility] [place] [facility] [address] [id number] [place] [address] Mar, [facility] [place] [facility] [address] [id number] [place] [address] Mar, [facility] [place] [facility] [address] [id number] [place] [address] Mar, [facility] [place] [facility] [address] [id number] [place] [address] Mar, [facility] [place] [facility] [address] [id number] [place] [address] Mar, [facility] [place] [facility] [address] [id number] [place] [address] Mar, [facility] [place] [facility] [address] [id number] [place] [address] Mar, [facility] [place] [facility] [address] [id number] [place] [address] Mar, [facility] [place] [facility] [address] [id number] [place] [address] Mar, [facility] [place] [facility] [address] [id number] [place] [address] Feb, [facility] [place] [facility] [address] [id number] [place] [address] Feb, [facility] [place] [facility] [address] [id number] [place] [address] Feb, [facility] [place] [facility] [address] [id number] [place] [address] Feb, [facility] [place] [facility] [address] [id number] [place] [address] Feb, [facility] [place] [facility] [address] [id number] [place] [address] Feb, [facility] [place] [facility] [address] [id number] [place] [address] Jan, [facility] [place] [facility] [address] [id number] [place] [address] Jan, [facility] [place] [facility] [address] [id number] [place] [address] Jan, [facility] [place] [facility] [address] [id number] [place] [address] Jan, [facility] [place] [facility] [address] [id number] [place] [address] Jan, [facility] [place] [facility] [address] [id number] [place] [address] Jan, [facility] [place] [facility] [address] [id number] [place] [address] Jan, [facility] [place] [facility] [address] [id number] [place] [address] Jan, [facility] [place] [facility] [address] [id number] [place] [address] Dec, [facility] [place] [facility] [address] [id number] [place] [address] Dec, [facility] [place] [facility] [address] [id number] [place] [address] Dec, [facility] [place] [facility] [address] [id number] [place] [address] Dec, [facility] [place] [facility] [address] [id number] [place] [address] Dec, [facility] [place] [facility] [address] [id number] [place] [address] Dec, [facility] [place] [facility] [address] [id number] [place] [address] Dec, [facility] [place] [facility] [address] [id number] [place] [address] Dec, [facility] [place] [facility] [address] [id number] [place] [address] October, [facility] [place] [facility] [address] [id number] [place] [address] October, [facility] [place] [facility] [address] [id number] [place] [address] Sep, [facility] [place] [facility] [address] [id number] [place] [address] Sep, [facility] [place] [facility] [address] [id number] [place] [address] Sep, [facility] [place] [facility] [address] [id number] [place] [address] Sep, [facility] [place] [facility] [address] [id number] [place] [address] Sep, [facility] [place] [facility] [address] [id number] [place] [address] Sep, [facility] [place] [facility] [address] [id number] [place] [address] Sep, [facility] [place] [facility] [address] [id number] [place] [address] Sep, [facility] [place] [facility] [address] [id number] [place] [address] Sep, [facility] [place] [facility] [address] [id number] [place] [address] Sep, [facility] [place] [facility] [address] [id number] [place] [address] Sep, [facility] [place] [facility] [address] [id number] [place] [address] Sep, [facility] [place] [facility] [address] [id number] [place] [address] Aug, [facility] [place] [facility] [address] [id number] [place] [address] Aug, [facility] [place] [facility] [address] [id number] [place] [address] Aug, [facility] [place] [facility] [address] [id number] [place] [address] Jun, [facility] [place] [facility] [address] [id number] [place] [address] Jun, [facility] [place] [facility] [address] [id number] [place] [address] Jun, [facility] [place] [facility] [address] [id number], [place] [address] Jun, [facility] [address] [id number] [place] [address] Jun, [facility] [place] [facility] [address] [id number] [place] [address] Jun, [facility] [place] [facility] [address] [facility] [id number] [place] [address] Jun, [facility] [facility] [address] [id number] [place] [address] Jun, [facility] [place] [facility] [address] [id number] [place] [address] Jun, [facility] [place] [facility] [address] [id number] [place] [address] Jun, [facility] [address] [facility] [id number], [place] [address] May, [facility] [place] [facility] [address] [id number] [place] [address] May, [facility] [place] [facility] [address] [facility] [id number] [place] [address] May, [facility] [place] [facility] [address] [facility] [id number] [place] [address] May, [facility] [place] [address] [id number], [place] [address] Apr, [facility] [facility] [address] [id number], [place] [address] Apr, [facility] [place] [facility] [address] [id number] [place] [address] Apr, [facility] [place] [facility] [address] [facility] [id number] [place] [address] Apr, [facility] [place] [facility] [address] [facility] [id number], [place] [address] Apr, [facility] [place] [facility] [address] [id number] [place] [address] Apr, [facility] [place] [facility] [address] [id number] [place] [address] Apr, [facility] [place] [facility] [address] [id number] [place] [address] Apr, [facility] [place] [facility] [address] [id number] [place] [address] Mar, [facility] [place] [facility] [address] [id number] [place] [address] Mar, [facility] [place] [facility] [address] [id number] [place] [address] Mar, [facility] [place] [facility] [address] [id number] [place] [address] Mar, [facility] [place] [facility] [address] [id number] [place] [address] Mar, [facility] [place] [facility] [address] [id number] [place] [address] Feb, [facility] [place] [facility] [address] [id number] [place] [address] Feb, [facility] [place] [facility] [address] [id number] [place] [address] Feb, [facility] [place] [facility] [address] [id number] [place] [address] Feb, [facility] [place] [facility] [address] [id number] [place] [address] Feb, [facility] [place] [address] [id number] [place] [address] Jan, [facility] [place] [address] [id number] [place] [address] Jan, [facility] [facility] [address] [id number] [place] [address] Nov, [facility] [address] [id number] [place] [address] Nov, [facility] [address] [id number] [place] [address] Nov, [facility] [address] [facility] [id number] [place] [address] Nov, [facility] [address] [id number] [place] [address] October, [facility] [address] [id number] [place] [address] Sep, [facility] [address] [id number] [place] [address] Aug, [facility] [address] [id number] [place] [address] Aug, [facility] [address] [id number], [place] [address] Aug, [facility] [address] [id number], [place] [address] Aug, [facility] [address] [facility] [id number], [place] [address] Jul, [facility] [address] [id number], [place] [address] Jun, [facility] [address] [id number], [place] [address] Jun, [facility] [address] [id number], [place] [address] May, [facility] [address] [facility] [id number], [place] [address] May, [facility] [address] [id number] [place] [id number] Mar, [facility] [address] [id number] [place] [address] Mar, [facility] [address] [id number] [place] [address] Mar, 2011 [facility] [address] [id number] [place] [address] Mar, [facility] [address] [id number] [place] [address] Mar, 2011 [facility] [address] [id number] [place] [address] Mar, [facility] [address] [id number] [place] [address] Mar, [facility] [address] [id number] [place] [address] Mar, [facility] [address] [id number] [place] [address] Mar, [facility] [address] [id number] [place] [address] Mar, [facility] [address] [id number] [place] [address] 20 Mar, 2012 [facility] [address] [id number] [place] [address] Mar, [facility] [address] [id number] [place] [address] 17 Mar, 2012 [facility] [address] [id number], [place] [address] 15 Mar, 2012 [facility] [address] [id number] [place] [address] 15 Mar, 2012 [facility] [address] [id number], [place] [address] 15 Mar, 2012 [facility] [address] [id number], [place] [address] 15 Mar, 2012 [facility] [address] [id number] [place] [address] Mar, [facility] [address] [id number] [place] [address] Mar, [facility] [address] [id number] [place] [address] Mar, [facility] [address] [id number] [place] [address] Mar, [facility] [address] [id number] [place] [address] Mar, [facility] [address] [id number] [place] [address] Mar, [facility] [address] [id number] [place] [address] 19 Feb, 2012 [facility] [address] [id number] [place] [address] 18 Feb, 2012 [facility] [address] [id number] [place] [address] 17 Feb, 2012 [facility] [address] [id number] [place] [address] 14 Feb, 2012 [facility] [address] [id number] [place] [address] 14 Feb, 2012 [facility] [address] [id number] [place] [address] 12 Feb, 2012 [facility] [address] [id number] [place] [address] 10 Feb, 2012 [facility] [address] [id number] [place] [address] 31 Jan, 2012 [facility] [address] [id number] [place] [address] 30 Jan, 2012 [facility] [address] [id number] [place] [address] Jan, [facility] [address] [id number] [place] [address] Jan, [facility] [address] [id number] [place] [address] Jan, [facility] [address] [id number] [place] [address] Jan, [facility] [address] [id number] [place] [address] Jan, [facility] [address] [id number] [place] [address] Jan, [facility] [address] [id number] [place] [address] Jan, [facility] [address] [id number] [place] [address] Jan, [facility] [address] [id number] [place] [address] Dec, [facility] [address] [id number] [place] [address] 24 Dec, 2011 [facility] [address] [id number] [place] [address] Dec, [facility] [address] [id number] [place] [address] Dec, [facility] [address] [id number] [place] [address] 18 Dec, 2011 [facility] [address] [id number] [place] [address] Dec, [facility] [address] [id number] [place] [address] 16 Dec, 2011 [facility] [address] [id number] [place] [address] 14 Dec, 2011 [facility] [id number], [place] [address] Dec, [facility] [id number], [place] [address] Dec, [facility] [id number], [place] [address] Dec, [facility] [id number], [place] [address] Nov, [facility] [id number], [place] [address] Nov, [facility] [id number] [place] [address] Nov, [facility] [id number], [place] [address] Nov, [facility] [id number] [place] [address] Nov, [facility] [id number], [place] [address] Nov, [facility] [id number], [place] [address] Nov, [facility] [id number], [place] [address] Nov, [facility] [id number], [place] [address] Nov, [facility] [address] [id number], [place] [address] Nov, [facility] [id number], [place] [address] October, IMMUNIZATIONS No Known Immunizations SOCIAL HISTORY Never Assessed REASON FOR VISIT EMR-[facility] [place] PLAN OF CARE VITAL [...] hysterectomy-total 2005 Surgical History lower GI [place] -not sure results Surgical History EGD [...]
--- OUTSIDE RECORDS SUMMARY | 2018-11-18 20:22 | XMS REPORT ---
Author Author Migration, Doctor Organization [facility] Address Unknown Phone Unavailable Care Team Providers Care Clinical Studies Specialist Name Role Phone Migration, Doctor Unavailable Unavailable PROBLEMS Type Condition ICD9-CM Code OJE58-BB Code Onset Dates Condition Status SNOMED Code Problem Elevated liver enzymes R74.8 Active 712541821 Problem Abnormal glucose R73.09 Active 492928235 Problem Hyperlipidemia LDL goal <100 E78.5 Active 61143025 Problem Hypokalemia E87.6 Active 78179427 Problem Major depressive disorder, recurrent episode, moderate F33.1 Active 611247118 Problem Tremor, hereditary, benign G25.0 Active 393878919 Problem Chronic migraine without aura with status migrainosus, not intractable G43.701 Active 537649947 Problem 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 Active 27365727 Problem Other chronic pain G89.29 Active 16931979 Problem Seizure disorder G40.909 Active 568972148 Problem Other chronic pain G89.29 Active 65655594 Problem Essential hypertension I10 Active 65933487 Problem Reflux gastritis K29.60 Active 84334156 Problem Irritable bowel K58.9 Active 91029848 Problem Primary insomnia F51.01 Active 3193780 Problem Moderate persistent asthma without complication J45.40 Active 350012773 Problem Moderate persistent asthma with exacerbation J45.41 Active 322560135 Problem Intractable chronic migraine without aura and with status migrainosus G43.711 Active 459394014 ALLERGIES No Information ENCOUNTERS Encounter Location Date Diagnosis [facility] [address] [facility] [id number] [address] Sep, [facility] [address] [id number] [address] Sep, Viral gastroenteritis A08.4 [facility] [address] [id number] [address] Aug, Headache R51 ; Viral upper respiratory tract infection J06.9 and Nausea R11.0 [facility] [address] [id number] [address] Jun, Reflux gastritis K29.60 [facility] [id number] [place] [address] Jun, [facility] [id number] [place] [address] May, [facility] [address] [address] May, [facility] [id number] [place] [address] Apr, Bowel habit changes R19.4 and Acute cystitis without hematuria N30.00 [facility] [id number] [place] [address] Apr, Pain in right shoulder M25.511 [facility] [address] [address] Apr, [facility] [id number] [place] [address] Mar, [facility] [id number] [place] [address] Mar, [facility] [id number] [place] [address] Mar, [facility] [id number] [place] [address] Mar, [facility] [id number] [place] [address] 14 Feb, 2018 [facility] [id number] [place] [address] 10 Feb, 2018 [facility] [id number] [place] [address] 05 Feb, 2018 [facility] [id number] [place] [address] Jan, [facility] [id number] [place] [address] Dec, [place] [address] [address] Dec, Other chronic pain G89.29 ; Pain in right shoulder M25.511 and Liver enzyme elevation R74.8 [place] [address] [address] Nov, Other chronic pain G89.29 and Pain in right shoulder M25.511 [place] [address] [address] October, [facility] [address] [address] October, Right shoulder pain, unspecified chronicity M25.511 [place] [address] [address] Aug, Elevated liver enzymes R74.8 and Hyperlipidemia LDL goal <100 E78.5 [place] [address] [address] Aug, [place] [id number] [place] [address] Jul, [place] [id number] [place] [address] Jul, Intractable chronic migraine without aura and with status migrainosus G43.711 ; Fever, unspecified fever cause R50.9 and Elevated liver enzymes R74.8 [place] [id number] [place] [address] Jun, Difficulty urinating R39.198 and Moderate persistent asthma with exacerbation J45.41 [place] [address] [address] Jun, [place] [id number] [place] [address] Jun, Moderate persistent asthma with exacerbation J45.41 [place] [address] [address] May, Elevated liver enzymes R74.8 and Hyperlipidemia LDL goal <100 E78.5 [place] [address] [address] May, Elevated lipids E78.5 [place] [address] [address] Apr, Elevated liver enzymes R74.8 [place] [address] [address] Apr, Elevated liver enzymes R74.8 [place] [id number] [place] [address] Apr, Superior glenoid labrum lesion of right shoulder, subsequent encounter S43.431D [place] [id number] [place] [address] Apr, Hypokalemia E87.6 ; Major depressive disorder, recurrent episode, moderate F33.1 ; Other abnormalities of breathing R06.89 and Dyspnea, unspecified R06.00 [facility] [id number] [place] [address] Mar, Moderate persistent asthma without complication J45.40 [place] [id number] [place] [address] Mar, Impingement syndrome of right shoulder M75.41 [place] [id number] [place] [address] Jan, [place] [id number] [place] [address] Jan, Chronic migraine without aura with status migrainosus, not intractable G43.701 ; Essential hypertension I10 ; Irritable bowel K58.9 ; Primary insomnia F51.01 and Hypokalemia E87.6 [facility] [address] [id number] [address] Dec, [facility] [id number] [place] [address] Dec, [facility] [id number] [place] [address] Dec, Essential hypertension I10 [facility] [id number] [place] [address] Dec, Pain in right shoulder M25.511 [facility] [id number] [place] [address] Nov, Essential hypertension I10 [facility] [id number] [place] [address] 14 Nov, 2016 Pain in right shoulder M25.511 [facility] [id number] [place] [address] Nov, Pain in right shoulder M25.511 [facility] [id number] [place] [address] October, [facility] [id number] [place] [address] October, Pain in right shoulder M25.511 [facility] [id number] [place] [address] Sep, Arm pain, right M79.601 [facility] [address] [id number] [address] Sep, [facility] [id number] [place] [address] Sep, Abnormal glucose R73.09 and Elevated lipids E78.5 [facility] [id number] [place] [address] Sep, Abnormal glucose R73.09 and Elevated lipids E78.5 [place] [id number] [place] [address] Aug, [place] [id number] [place] [address] Aug, [place] [id number] [place] [address] Aug, [place] [address] [address] Aug, 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 ; Hypokalemia E87.6 ; Irritable bowel K58.9 ; Essential hypertension I10 ; Pain in right shoulder M25.511 ; Seizure disorder G40.909 and Screening for lipid disorders Z13.220 [place] [id number] [place] [address] Jul, Other chronic pain G89.29 and Pain in right shoulder M25.511 [place] [id number] [place] [address] 14 Jul, 2016 Biceps muscle strain, right, subsequent encounter S46.111D [facility] [place] [id number] [place] [address] 08 Jul, 2016 Arm pain, right M79.601 [place] [id number] [place] [address] Jun, [place] [id number] [place] [address] Jun, Acute non-recurrent frontal sinusitis J01.10 [place] [id number] [place] [address] 14 May, 2016 Generalized abdominal pain R10.84 ; Urinary tract infection without hematuria, site unspecified N39.0 ; Hypokalemia E87.6 ; Essential hypertension I10 ; Screening for lipid disorders Z13.220 ; Seizure R56.9 and Low back pain M54.5 [place] [address] [place] [address] Apr, [facility] [id number] [place] [address] Feb, [facility] [id number] [place] [address] Jan, [facility] [id number] [place] [address] Dec, 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 ; Hypokalemia E87.6 ; Irritable bowel K58.9 and Nausea R11.0 [facility] [id number] [place] [address] Dec, Generalized abdominal pain R10.84 [place] [id number] [place] [address] Nov, [facility] [address] [address] Aug, Acute bronchitis J20.9 [place] [id number] [place] [address] Aug, [facility] [id number] [place] [address] Aug, Low back pain M54.5 ; Hypokalemia E87.6 ; Chronic migraine without aura with status migrainosus, not intractable G43.701 ; Tremor, hereditary, benign G25.0 ; Irritable bowel K58.9 ; Essential hypertension I10 and Seizure R56.9 [facility] [id number] [place] [address] Aug, [place] [address] [address] Jul, [facility] [id number] [place] [address] Jul, Low back pain M54.5 ; Hypokalemia E87.6 ; Chronic migraine without aura with status migrainosus, not intractable G43.701 ; Tremor, hereditary, benign G25.0 ; Irritable bowel K58.9 ; Essential hypertension I10 and Seizure R56.9 [place] [address] [address] 20 Jun, 2015 Hypokalemia E87.6 [place] [address] [address] 15 Jun, 2015 ADD (attention deficit disorder) without hyperactivity F90.0 ; Generalized anxiety disorder F41.1 and Major depressive disorder, recurrent episode, moderate F33.1 [place] [address] [address] 13 Jun, 2015 Low back pain M54.5 ; Hypokalemia E87.6 ; Chronic migraine without aura with status migrainosus, not intractable G43.701 ; Tremor, hereditary, benign G25.0 ; Irritable bowel K58.9 ; Essential hypertension I10 and Seizure R56.9 [place] [address] [address] Jun, [place] [address] [address] May, [place] [address] [address] 30 May, 2015 Low back pain M54.5 ; Hypokalemia E87.6 ; Chronic migraine without aura with status migrainosus, not intractable G43.701 ; Tremor, hereditary, benign G25.0 ; Irritable bowel K58.9 ; Essential hypertension I10 ; Seizure R56.9 and Tinea capitis B35.0 [place] [id number] [place] [address] 17 May, 2015 Low back pain M54.5 ; Hypokalemia E87.6 ; Chronic migraine without aura with status migrainosus, not intractable G43.701 ; Tremor, hereditary, benign G25.0 ; Irritable bowel K58.9 ; Essential hypertension I10 ; Seizure R56.9 ; Otitis media, left H66.92 and Dysuria 788.1 [place] [id number] [place] [address] May, Tooth pain K08.8 [place] [id number] [place] [address] May, [place] [address] [address] May, Low back pain M54.5 ; Hypokalemia E87.6 ; Chronic migraine without aura with status migrainosus, not intractable G43.701 ; Tremor, hereditary, benign G25.0 ; Irritable bowel K58.9 and Essential hypertension I10 [place] [id number] [place] [address] Apr, Low back pain M54.5 ; Hypokalemia E87.6 ; Chronic migraine without aura with status migrainosus, not intractable G43.701 ; Tremor, hereditary, benign G25.0 and Irritable bowel K58.9 [place] [id number] [place] [address] Apr, Low back pain M54.5 [place] [id number] [place] [address] Mar, [place] [address] [address] Mar, Irritable bowel syndrome with diarrhea K58.0 [place] [id number] [place] [address] Mar, [place] [id number] [place] [address] Feb, [facility] [id number] [place] [address] Feb, [place] [id number] [place] [address] Feb, Irritable bowel syndrome 564.1 ; Lumbago 724.2 and Cervical pain (neck) 723.1 [facility] [id number] [place] [address] Dec, Major depressive disorder, recurrent episode, moderate 296.32 and Generalized anxiety disorder 300.02 [facility] [id number] [place] [address] Nov, [facility] [id number] [place] [address] Nov, Major depressive disorder, recurrent episode, moderate 296.32 [facility] [id number] [place] [address] Nov, Constipation 564.00 ; Nausea & vomiting 787.01 and Abdominal pain 789.00 [facility] [id number] [place] [address] Nov, [facility] [id number] [place] [address] October, [facility] [id number] [place] [address] October, [facility] [id number] [place] [address] October, [facility] [id number] [place] [address] October, [facility] [id number] [place] [address] Sep, Dysuria 788.1 [facility] [id number] [place] [address] Sep, [facility] [id number] [place] [address] Sep, [facility] [address] [place] [address] 14 Sep, 2014 [facility] [place] [facility] [address] [id number] [place] [address] 13 Sep, 2014 [facility] [place] [facility] [address] [id number] [place] [address] 30 Aug, 2014 [facility] [place] [facility] [address] [id number] [place] [address] 30 Aug, 2014 [facility] [place] [facility] [address] [id number] [place] [address] Aug, [facility] [place] [facility] [address] [id number] [place] [address] Aug, [facility] [place] [facility] [address] [id number] [place] [address] Aug, [facility] [place] [facility] [address] [id number] [place] [address] Aug, [facility] [place] [facility] [address] [id number] [place] [address] Aug, [facility] [place] [facility] [address] [id number] [place] [address] Aug, [facility] [place] [facility] [address] [id number] [place] [address] Aug, [facility] [place] [facility] [address] [id number] [place] [address] Aug, [facility] [place] [facility] [address] [id number] [place] [address] Jun, [facility] [place] [facility] [address] [id number] [place] [address] Jun, [facility] [place] [facility] [address] [id number] [place] [address] Jun, [facility] [place] [facility] [address] [id number] [place] [address] Jun, [facility] [place] [facility] [address] [id number] [place] [address] May, [facility] [place] [facility] [address] [id number] [place] [address] May, [facility] [place] [facility] [address] [id number] [place] [address] May, [facility] [place] [facility] [address] [id number] [place] [address] May, [facility] [place] [facility] [address] [id number] [place] [address] May, [facility] [place] [facility] [address] [id number] [place] [address] May, [facility] [place] [facility] [address] [id number] [place] [address] May, [facility] [place] [facility] [address] [id number] [place] [address] May, [facility] [place] [facility] [address] [id number] [place] [address] Mar, [facility] [place] [facility] [address] [id number] [place] [address] Mar, [facility] [place] [facility] [address] [id number] [place] [address] Mar, [facility] [place] [facility] [address] [id number] [place] [address] Mar, [facility] [place] [facility] [address] [id number] [place] [address] Mar, [facility] [place] [facility] [address] [id number] [place] [address] Mar, [facility] [place] [facility] [address] [id number] [place] [address] Mar, [facility] [place] [facility] [address] [id number] [place] [address] Mar, [facility] [place] [facility] [address] [id number] [place] [address] Mar, [facility] [place] [facility] [address] [id number] [place] [address] Mar, [facility] [place] [facility] [address] [id number] [place] [address] Mar, [facility] [place] [facility] [address] [id number] [place] [address] Mar, [facility] [place] [facility] [address] [id number] [place] [address] Feb, [facility] [place] [facility] [address] [id number] [place] [address] Feb, [facility] [place] [facility] [address] [id number] [place] [address] Feb, [facility] [place] [facility] [address] [id number] [place] [address] Feb, [facility] [place] [facility] [address] [id number] [place] [address] Feb, [facility] [place] [facility] [address] [id number] [place] [address] Feb, [facility] [place] [facility] [address] [id number] [place] [address] Jan, [facility] [place] [facility] [address] [id number] [place] [address] Jan, [facility] [place] [facility] [address] [id number] [place] [address] Jan, [facility] [place] [facility] [address] [id number] [place] [address] Jan, [facility] [place] [facility] [address] [id number] [place] [address] Jan, [facility] [place] [facility] [address] [id number] [place] [address] Jan, [facility] [place] [facility] [address] [id number] [place] [address] Jan, [facility] [place] [facility] [address] [id number] [place] [address] Jan, [facility] [place] [facility] [address] [id number] [place] [address] Dec, [facility] [place] [facility] [address] [id number] [place] [address] Dec, [facility] [place] [facility] [address] [id number] [place] [address] Dec, [facility] [place] [facility] [address] [id number] [place] [address] Dec, [facility] [place] [facility] [address] [id number] [place] [address] Dec, [facility] [place] [facility] [address] [id number] [place] [address] Dec, [facility] [place] [facility] [address] [id number] [place] [address] Dec, [facility] [place] [facility] [address] [id number] [place] [address] Dec, [facility] [place] [facility] [address] [id number] [place] [address] October, [facility] [place] [facility] [address] [id number] [place] [address] October, [facility] [place] [facility] [address] [id number] [place] [address] Sep, [facility] [place] [facility] [address] [id number] [place] [address] Sep, [facility] [place] [facility] [address] [id number] [place] [address] Sep, [facility] [place] [facility] [address] [id number] [place] [address] Sep, [facility] [place] [facility] [address] [id number] [place] [address] Sep, [facility] [place] [facility] [address] [id number] [place] [address] Sep, [facility] [place] [facility] [address] [id number] [place] [address] Sep, [facility] [place] [facility] [address] [id number] [place] [address] Sep, [facility] [place] [facility] [address] [id number] [place] [address] Sep, [facility] [place] [facility] [address] [id number] [place] [address] Sep, [facility] [place] [facility] [address] [id number] [place] [address] Sep, [facility] [place] [facility] [address] [id number] [place] [address] Sep, [facility] [place] [facility] [address] [id number] [place] [address] Aug, [facility] [place] [facility] [address] [id number] [place] [address] Aug, [facility] [place] [facility] [address] [id number] [place] [address] Aug, [facility] [place] [facility] [address] [id number] [place] [address] Jun, [facility] [place] [facility] [address] [id number] [place] [address] Jun, [facility] [place] [facility] [address] [id number] [place] [address] Jun, [facility] [place] [facility] [address] [id number] [address] Jun, [facility] [address] [id number] [place] [address] Jun, [facility] [place] [facility] [address] [id number] [place] [address] Jun, [facility] [place] [facility] [address] [facility] [id number] [place] [address] Jun, [facility] [place] [facility] [address] [id number] [place] [address] Jun, [facility] [place] [facility] [address] [id number] [place] [address] Jun, [facility] [place] [facility] [address] [id number] [place] [address] Jun, [facility] [address] [facility] [id number] [address] May, [facility] [place] [facility] [address] [id number] [place] [address] May, [facility] [place] [facility] [address] [facility] [id number] [place] [address] May, [facility] [place] [facility] [address] [facility] [id number] [place] [address] May, [facility] [place] [facility] [address] [id number] [address] Apr, [facility] [place] [facility] [address] [id number] [address] Apr, [facility] [place] [facility] [address] [id number] [place] [address] Apr, [facility] [place] [facility] [address] [facility] [id number] [place] [address] Apr, [facility] [place] [facility] [address] [facility] [id number] [address] Apr, [facility] [place] [facility] [address] [id number] [place] [address] Apr, [facility] [place] [facility] [address] [id number] [place] [address] Apr, [facility] [place] [facility] [address] [id number] [place] [address] Apr, [facility] [place] [facility] [address] [id number] [place] [address] Mar, [facility] [place] [facility] [address] [id number] [place] [address] Mar, [facility] [place] [facility] [address] [id number] [place] [address] Mar, [facility] [place] [facility] [address] [id number] [place] [address] Mar, [facility] [place] [facility] [address] [id number] [place] [address] Mar, [facility] [place] [facility] [address] [id number] [place] [address] Feb, [facility] [place] [facility] [address] [id number] [place] [address] Feb, [facility] [place] [facility] [address] [id number] [place] [address] Feb, [facility] [place] [facility] [address] [id number] [place] [address] Feb, [facility] [place] [facility] [address] [id number] [place] [address] Feb, [facility] [place] [facility] [address] [id number] [place] [address] Jan, [facility] [place] [facility] [address] [id number] [place] [address] Jan, [facility] [place] [facility] [address] [id number] [place] [address] Nov, [facility] [address] [id number] [place] [address] Nov, [facility] [place] [facility] [address] [id number] [place] [address] Nov, [facility] [address] [facility] [id number] [place] [address] Nov, [facility] [place] [facility] [address] [id number] [place] [address] October, [facility] [address] [id number] [place] [address] Sep, [facility] [place] [facility] [address] [id number] [place] [address] Aug, [facility] [address] [id number] [place] [address] Aug, [facility] [place] [facility] [address] [id number] [place] [address] Aug, [facility] [address] [id number] [place] [address] Aug, [facility] [place] [facility] [address] [facility] [id number] [place] [address] Jul, [facility] [address] [id number] [place] [address] Jun, [facility] [place] [facility] [address] [id number] [place] [address] Jun, [facility] [place] [facility] [address] [id number] [place] [address] May, [facility] [place] [facility] [address] [facility] [id number] [place] [address] May, [facility] [place] [facility] [address] [id number] [place] [id number] Mar, [facility] [place] [facility] [address] [id number] [place] [address] Mar, [facility] [place] [facility] [address] [id number] [place] [address] Mar, 2011 [facility] [place] [facility] [address] [id number] [place] [address] Mar, [facility] [place] [facility] [address] [id number] [place] [address] Mar, 2011 [facility] [place] [facility] [address] [id number] [place] [address] Mar, [facility] [place] [facility] [address] [id number] [place] [address] Mar, [facility] [place] [facility] [address] [id number] [place] [address] Mar, [facility] [place] [facility] [address] [id number] [place] [address] Mar, [facility] [place] [facility] [address] [id number] [place] [address] Mar, [facility] [place] [facility] [address] [id number] [place] [address] 20 Mar, 2012 [facility] [place] [facility] [address] [id number] [place] [address] Mar, [facility] [place] [facility] [address] [id number] [place] [address] 17 Mar, 2012 [facility] [place] [facility] [address] [id number] [place] [address] 15 Mar, 2012 [facility] [place] [facility] [address] [id number] [place] [address] 15 Mar, 2012 [facility] [place] [facility] [address] [id number] [place] [address] 15 Mar, 2012 [facility] [place] [facility] [address] [id number] [place] [address] 15 Mar, 2012 [facility] [place] [facility] [address] [id number] [place] [address] Mar, [facility] [place] [facility] [address] [id number] [place] [address] Mar, [facility] [place] [facility] [address] [id number] [place] [address] Mar, [facility] [place] [facility] [address] [id number] [place] [address] Mar, [facility] [place] [facility] [address] [id number] [place] [address] Mar, [facility] [place] [facility] [address] [id number] [place] [address] Mar, [facility] [place] [facility] [address] [id number] [place] [address] 19 Feb, 2012 [facility] [place] [facility] [address] [id number] [place] [address] 18 Feb, 2012 [facility] [place] [facility] [address] [id number] [place] [address] 17 Feb, 2012 [facility] [place] [facility] [address] [id number] [place] [address] 14 Feb, 2012 [facility] [place] [facility] [address] [id number] [place] [address] 14 Feb, 2012 [facility] [place] [facility] [address] [id number] [place] [address] 12 Feb, 2012 [facility] [place] [facility] [address] [id number] [place] [address] 10 Feb, 2012 [facility] [place] [facility] [address] [id number] [place] [address] 31 Jan, 2012 [facility] [place] [facility] [address] [id number] [place] [address] 30 Jan, 2012 [facility] [place] [facility] [address] [id number] [place] [address] Jan, [facility] [place] [facility] [address] [id number] [place] [address] Jan, [facility] [place] [facility] [address] [id number] [place] [address] Jan, [facility] [place] [facility] [address] [id number] [place] [address] Jan, [facility] [place] [facility] [address] [id number] [place] [address] Jan, [facility] [place] [facility] [address] [id number] [place] [address] Jan, [facility] [place] [facility] [address] [id number] [place] [address] Jan, [facility] [place] [facility] [address] [id number] [place] [address] Jan, [facility] [place] [facility] [address] [id number] [place] [address] Dec, [facility] [place] [facility] [address] [id number] [place] [address] 24 Dec, 2011 [facility] [place] [facility] [address] [id number] [place] [address] Dec, [facility] [place] [facility] [address] [id number] [place] [address] Dec, [facility] [place] [facility] [address] [id number] [place] [address] 18 Dec, 2011 [facility] [place] [facility] [address] [id number] [place] [address] Dec, [facility] [place] [facility] [address] [id number] [place] [address] 16 Dec, 2011 [facility] [place] [facility] [address] [id number] [place] [address] 14 Dec, 2011 [facility] [place] [facility] [id number] [address] Dec, [facility] [id number] [address] Dec, [facility] [id number] [address] Dec, [facility] [id number] [address] Nov, [facility] [id number] [address] Nov, [facility] [id number] [place] [address] Nov, [facility] [id number] [address] Nov, [facility] [id number] [place] [address] Nov, [facility] [id number] [address] Nov, [facility] [id number] [address] Nov, [facility] [id number] [address] Nov, [facility] [id number] [address] Nov, [facility] [address] [id number] [address] Nov, [facility] [id number] [address] October, IMMUNIZATIONS No Known Immunizations SOCIAL HISTORY Never Assessed [place] [place] VITAL SIGNS MEDICATIONS Unknown [...] hysterectomy-total 2005 Surgical History lower [facility] -not sure results Surgical History EGD Hospitalization [...]
--- OUTSIDE RECORDS SUMMARY | 2018-11-18 20:23 | XMS REPORT ---
Author Author Migration, Doctor Organization [facility] Address Unknown Phone Unavailable Care Team Providers Care R Programmer Name Role Phone Migration, Doctor Unavailable Unavailable PROBLEMS Type Condition ICD9-CM Code DJA50-GB Code Onset Dates Condition Status SNOMED Code Problem Elevated liver enzymes R74.8 Active 282578909 Problem Abnormal glucose R73.09 Active 899789819 Problem Hyperlipidemia LDL goal <100 E78.5 Active 50830368 Problem Hypokalemia E87.6 Active 99515353 Problem Major depressive disorder, recurrent episode, moderate F33.1 Active 174821103 Problem Tremor, hereditary, benign G25.0 Active 591829381 Problem Chronic migraine without aura with status migrainosus, not intractable G43.701 Active 365594925 Problem 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 Active 20385575 Problem Other chronic pain G89.29 Active 51734315 Problem Seizure disorder G40.909 Active 016474087 Problem Other chronic pain G89.29 Active 81414930 Problem Essential hypertension I10 Active 18878098 Problem Reflux gastritis K29.60 Active 02382865 Problem Irritable bowel K58.9 Active 11194640 Problem Primary insomnia F51.01 Active 0655679 Problem Moderate persistent asthma without complication J45.40 Active 395300931 Problem Moderate persistent asthma with exacerbation J45.41 Active 619103806 Problem Intractable chronic migraine without aura and with status migrainosus G43.711 Active 509671579 ALLERGIES No Information ENCOUNTERS Encounter Location Date Diagnosis [facility] [address] [facility] [id number] [address] Sep, [facility] [address] [id number] [address] Sep, Viral gastroenteritis A08.4 [facility] [address] [id number] [address] Aug, Headache R51 ; Viral upper respiratory tract infection J06.9 and Nausea R11.0 [facility] [address] [id number] [address] Jun, Reflux gastritis K29.60 [facility] [id number] [place] [address] Jun, [facility] [id number] [place] [address] May, [facility] [address] [address] May, [facility] [id number] [place] [address] Apr, Bowel habit changes R19.4 and Acute cystitis without hematuria N30.00 [facility] [id number] [place] [address] Apr, Pain in right shoulder M25.511 [facility] [address] [address] Apr, [facility] [id number] [place] [address] Mar, [facility] [id number] [place] [address] Mar, [facility] [id number] [place] [address] Mar, [facility] [id number] [place] [address] Mar, [facility] [id number] [place] [address] 14 Feb, 2018 [facility] [id number] [place] [address] 10 Feb, 2018 [facility] [id number] [place] [address] 05 Feb, 2018 [facility] [id number] [place] [address] Jan, [facility] [id number] [place] [address] Dec, [place] [address] [address] Dec, Other chronic pain G89.29 ; Pain in right shoulder M25.511 and Liver enzyme elevation R74.8 [place] [address] [address] Nov, Other chronic pain G89.29 and Pain in right shoulder M25.511 [place] [address] [address] October, [facility] [address] [address] October, Right shoulder pain, unspecified chronicity M25.511 [place] [address] [address] Aug, Elevated liver enzymes R74.8 and Hyperlipidemia LDL goal <100 E78.5 [place] [address] [address] Aug, [place] [id number] [place] [address] Jul, [place] [id number] [place] [address] Jul, Intractable chronic migraine without aura and with status migrainosus G43.711 ; Fever, unspecified fever cause R50.9 and Elevated liver enzymes R74.8 [place] [id number] [place] [address] Jun, Difficulty urinating R39.198 and Moderate persistent asthma with exacerbation J45.41 [place] [address] [address] Jun, [place] [id number] [place] [address] Jun, Moderate persistent asthma with exacerbation J45.41 [place] [address] [address] May, Elevated liver enzymes R74.8 and Hyperlipidemia LDL goal <100 E78.5 [place] [address] [address] May, Elevated lipids E78.5 [place] [address] [address] Apr, Elevated liver enzymes R74.8 [place] [address] [address] Apr, Elevated liver enzymes R74.8 [place] [id number] [place] [address] Apr, Superior glenoid labrum lesion of right shoulder, subsequent encounter S43.431D [place] [id number] [place] [address] Apr, Hypokalemia E87.6 ; Major depressive disorder, recurrent episode, moderate F33.1 ; Other abnormalities of breathing R06.89 and Dyspnea, unspecified R06.00 [facility] [id number] [place] [address] Mar, Moderate persistent asthma without complication J45.40 [place] [id number] [place] [address] Mar, Impingement syndrome of right shoulder M75.41 [place] [id number] [place] [address] Jan, [place] [id number] [place] [address] Jan, Chronic migraine without aura with status migrainosus, not intractable G43.701 ; Essential hypertension I10 ; Irritable bowel K58.9 ; Primary insomnia F51.01 and Hypokalemia E87.6 [facility] [address] [id number], [place] [address] Dec, [facility] [id number] [place] [address] Dec, [facility] [id number] [place] [address] Dec, Essential hypertension I10 [facility] [id number] [place] [address] Dec, Pain in right shoulder M25.511 [facility] [id number] [place] [address] Nov, Essential hypertension I10 [facility] [id number] [place] [address] 14 Nov, 2016 Pain in right shoulder M25.511 [facility] [id number] [place] [address] Nov, Pain in right shoulder M25.511 [facility] [id number] [place] [address] October, [facility] [id number] [place] [address] October, Pain in right shoulder M25.511 [facility] [id number] [place] [address] Sep, Arm pain, right M79.601 [facility] [address] [id number], [place] [address] Sep, [facility] [id number] [place] [address] Sep, Abnormal glucose R73.09 and Elevated lipids E78.5 [facility] [id number] [place] [address] Sep, Abnormal glucose R73.09 and Elevated lipids E78.5 [place] [id number] [place] [address] Aug, [place] [id number] [place] [address] Aug, [place] [id number] [place] [address] Aug, [place] [address] [address] Aug, 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 ; Hypokalemia E87.6 ; Irritable bowel K58.9 ; Essential hypertension I10 ; Pain in right shoulder M25.511 ; Seizure disorder G40.909 and Screening for lipid disorders Z13.220 [place] [id number] [place] [address] Jul, Other chronic pain G89.29 and Pain in right shoulder M25.511 [place] [id number] [place] [address] 14 Jul, 2016 Biceps muscle strain, right, subsequent encounter S46.111D [facility] [place] [id number] [place] [address] 08 Jul, 2016 Arm pain, right M79.601 [place] [id number] [place] [address] Jun, [place] [id number] [place] [address] Jun, Acute non-recurrent frontal sinusitis J01.10 [place] [id number] [place] [address] 14 May, 2016 Generalized abdominal pain R10.84 ; Urinary tract infection without hematuria, site unspecified N39.0 ; Hypokalemia E87.6 ; Essential hypertension I10 ; Screening for lipid disorders Z13.220 ; Seizure R56.9 and Low back pain M54.5 [address] [id number] [place] [address] Apr, [facility] [id number] [place] [address] Feb, [facility] [id number] [place] [address] Jan, [facility] [id number] [place] [address] Dec, 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 ; Hypokalemia E87.6 ; Irritable bowel K58.9 and Nausea R11.0 [facility] [id number] [place] [address] Dec, Generalized abdominal pain R10.84 [place] [id number] [place] [address] Nov, [facility] [address] [address] Aug, Acute bronchitis J20.9 [place] [id number] [place] [address] Aug, [facility] [id number] [place] [address] Aug, Low back pain M54.5 ; Hypokalemia E87.6 ; Chronic migraine without aura with status migrainosus, not intractable G43.701 ; Tremor, hereditary, benign G25.0 ; Irritable bowel K58.9 ; Essential hypertension I10 and Seizure R56.9 [facility] [id number] [place] [address] Aug, [place] [address] [address] Jul, [facility] [id number] [place] [address] Jul, Low back pain M54.5 ; Hypokalemia E87.6 ; Chronic migraine without aura with status migrainosus, not intractable G43.701 ; Tremor, hereditary, benign G25.0 ; Irritable bowel K58.9 ; Essential hypertension I10 and Seizure R56.9 [place] [address] [address] 20 Jun, 2015 Hypokalemia E87.6 [place] [address] [address] 15 Jun, 2015 ADD (attention deficit disorder) without hyperactivity F90.0 ; Generalized anxiety disorder F41.1 and Major depressive disorder, recurrent episode, moderate F33.1 [place] [address] [address] 13 Jun, 2015 Low back pain M54.5 ; Hypokalemia E87.6 ; Chronic migraine without aura with status migrainosus, not intractable G43.701 ; Tremor, hereditary, benign G25.0 ; Irritable bowel K58.9 ; Essential hypertension I10 and Seizure R56.9 [place] [address] [address] Jun, [place] [address] [address] May, [place] [address] [address] 30 May, 2015 Low back pain M54.5 ; Hypokalemia E87.6 ; Chronic migraine without aura with status migrainosus, not intractable G43.701 ; Tremor, hereditary, benign G25.0 ; Irritable bowel K58.9 ; Essential hypertension I10 ; Seizure R56.9 and Tinea capitis B35.0 [place] [id number] [place] [address] 17 May, 2015 Low back pain M54.5 ; Hypokalemia E87.6 ; Chronic migraine without aura with status migrainosus, not intractable G43.701 ; Tremor, hereditary, benign G25.0 ; Irritable bowel K58.9 ; Essential hypertension I10 ; Seizure R56.9 ; Otitis media, left H66.92 and Dysuria 788.1 [place] [id number] [place] [address] May, Tooth pain K08.8 [place] [id number] [place] [address] May, [place] [address] [address] May, Low back pain M54.5 ; Hypokalemia E87.6 ; Chronic migraine without aura with status migrainosus, not intractable G43.701 ; Tremor, hereditary, benign G25.0 ; Irritable bowel K58.9 and Essential hypertension I10 [place] [id number] [place] [address] Apr, Low back pain M54.5 ; Hypokalemia E87.6 ; Chronic migraine without aura with status migrainosus, not intractable G43.701 ; Tremor, hereditary, benign G25.0 and Irritable bowel K58.9 [place] [id number] [place] [address] Apr, Low back pain M54.5 [place] [id number] [place] [address] Mar, [place] [address] [address] Mar, Irritable bowel syndrome with diarrhea K58.0 [place] [id number] [place] [address] Mar, [place] [id number] [place] [address] Feb, [facility] [id number] [place] [address] Feb, [place] [address] [id number], [place] [address] Feb, Irritable bowel syndrome 564.1 ; Lumbago 724.2 and Cervical pain (neck) 723.1 [facility] [id number] [place] [address] Dec, Major depressive disorder, recurrent episode, moderate 296.32 and Generalized anxiety disorder 300.02 [facility] [id number] [place] [address] Nov, [facility] [id number] [place] [address] Nov, Major depressive disorder, recurrent episode, moderate 296.32 [facility] [id number] [place] [address] Nov, Constipation 564.00 ; Nausea & vomiting 787.01 and Abdominal pain 789.00 [facility] [id number] [place] [address] Nov, [facility] [id number] [place] [address] October, [facility] [id number] [place] [address] October, [facility] [address] [id number], [place] [address] October, [facility] [id number] [place] [address] October, [facility] [address] [place] [address] Sep, [facility] [id number] [place] [address] Sep, Dysuria 788.1 [facility] [id number] [place] [address] Sep, [facility] [id number] [place] [address] 14 Sep, 2014 [facility] [place] [facility] [address] [id number] [place] [address] 13 Sep, 2014 [facility] [place] [facility] [address] [id number] [place] [address] 30 Aug, 2014 [facility] [place] [facility] [address] [id number] [place] [address] 30 Aug, 2014 [facility] [place] [facility] [address] [id number] [place] [address] Aug, [facility] [place] [facility] [address] [id number] [place] [address] Aug, [facility] [place] [facility] [address] [id number] [place] [address] Aug, [facility] [place] [facility] [address] [id number] [place] [address] Aug, [facility] [place] [facility] [address] [id number] [place] [address] Aug, [facility] [place] [facility] [address] [id number] [place] [address] Aug, [facility] [place] [facility] [address] [id number] [place] [address] Aug, [facility] [place] [facility] [address] [id number] [place] [address] Aug, [facility] [place] [facility] [address] [id number] [place] [address] Jun, [facility] [place] [facility] [address] [id number] [place] [address] Jun, [facility] [place] [facility] [address] [id number] [place] [address] Jun, [facility] [place] [facility] [address] [id number] [place] [address] Jun, [facility] [place] [facility] [address] [id number] [place] [address] May, [facility] [place] [facility] [address] [id number] [place] [address] May, [facility] [place] [facility] [address] [id number] [place] [address] May, [facility] [place] [facility] [address] [id number] [place] [address] May, [facility] [place] [facility] [address] [id number] [place] [address] May, [facility] [place] [facility] [address] [id number] [place] [address] May, [facility] [place] [facility] [address] [id number] [place] [address] May, [facility] [place] [facility] [address] [id number] [place] [address] May, [facility] [place] [facility] [address] [id number] [place] [address] Mar, [facility] [place] [facility] [address] [id number] [place] [address] Mar, [facility] [place] [facility] [address] [id number] [place] [address] Mar, [facility] [place] [facility] [address] [id number] [place] [address] Mar, [facility] [place] [facility] [address] [id number] [place] [address] Mar, [facility] [place] [facility] [address] [id number] [place] [address] Mar, [facility] [place] [facility] [address] [id number] [place] [address] Mar, [facility] [place] [facility] [address] [id number] [place] [address] Mar, [facility] [place] [facility] [address] [id number] [place] [address] Mar, [facility] [place] [facility] [address] [id number] [place] [address] Mar, [facility] [place] [facility] [address] [id number] [place] [address] Mar, [facility] [place] [facility] [address] [id number] [place] [address] Mar, [facility] [place] [facility] [address] [id number] [place] [address] Feb, [facility] [place] [facility] [address] [id number] [place] [address] Feb, [facility] [place] [facility] [address] [id number] [place] [address] Feb, [facility] [place] [facility] [address] [id number] [place] [address] Feb, [facility] [place] [facility] [address] [id number] [place] [address] Feb, [facility] [place] [facility] [address] [id number] [place] [address] Feb, [facility] [place] [facility] [address] [id number] [place] [address] Jan, [facility] [place] [facility] [address] [id number] [place] [address] Jan, [facility] [place] [facility] [address] [id number] [place] [address] Jan, [facility] [place] [facility] [address] [id number] [place] [address] Jan, [facility] [place] [facility] [address] [id number] [place] [address] Jan, [facility] [place] [facility] [address] [id number] [place] [address] Jan, [facility] [place] [facility] [address] [id number] [place] [address] Jan, [facility] [place] [facility] [address] [id number] [place] [address] Jan, [facility] [place] [facility] [address] [id number] [place] [address] Dec, [facility] [place] [facility] [address] [id number] [place] [address] Dec, [facility] [place] [facility] [address] [id number] [place] [address] Dec, [facility] [place] [facility] [address] [id number] [place] [address] Dec, [facility] [place] [facility] [address] [id number] [place] [address] Dec, [facility] [place] [facility] [address] [id number] [place] [address] Dec, [facility] [place] [facility] [address] [id number] [place] [address] Dec, [facility] [place] [facility] [address] [id number] [place] [address] Dec, [facility] [place] [facility] [address] [id number] [place] [address] October, [facility] [place] [facility] [address] [id number] [place] [address] October, [facility] [place] [facility] [address] [id number] [place] [address] Sep, [facility] [place] [facility] [address] [id number] [place] [address] Sep, [facility] [place] [facility] [address] [id number] [place] [address] Sep, [facility] [place] [facility] [address] [id number] [place] [address] Sep, [facility] [place] [facility] [address] [id number] [place] [address] Sep, [facility] [place] [facility] [address] [id number] [place] [address] Sep, [facility] [place] [facility] [address] [id number] [place] [address] Sep, [facility] [place] [facility] [address] [id number] [place] [address] Sep, [facility] [place] [facility] [address] [id number] [place] [address] Sep, [facility] [place] [facility] [address] [id number] [place] [address] Sep, [facility] [place] [facility] [address] [id number] [place] [address] Sep, [facility] [place] [facility] [address] [id number] [place] [address] Sep, [facility] [place] [facility] [address] [id number] [place] [address] Aug, [facility] [place] [facility] [address] [id number] [place] [address] Aug, [facility] [place] [facility] [address] [id number] [place] [address] Aug, [facility] [place] [facility] [address] [id number] [place] [address] Jun, [facility] [place] [facility] [address] [id number] [place] [address] Jun, [facility] [place] [facility] [address] [id number] [place] [address] Jun, [facility] [place] [facility] [address] [id number], [place] [address] Jun, [facility] [address] [id number] [place] [address] Jun, [facility] [place] [facility] [address] [id number] [place] [address] Jun, [facility] [place] [facility] [address] [facility] [id number] [place] [address] Jun, [facility] [place] [facility] [address] [id number] [place] [address] Jun, [facility] [place] [facility] [address] [id number] [place] [address] Jun, [facility] [place] [facility] [address] [id number] [place] [address] Jun, [facility] [address] [facility] [id number], [place] [address] May, [facility] [place] [facility] [address] [id number] [place] [address] May, [facility] [place] [facility] [address] [facility] [id number] [place] [address] May, [facility] [place] [facility] [address] [facility] [id number] [place] [address] May, [facility] [place] [facility] [address] [id number], [place] [address] Apr, [facility] [place] [facility] [address] [id number], [place] [address] Apr, [facility] [place] [facility] [address] [id number] [place] [address] Apr, [facility] [place] [facility] [address] [facility] [id number] [place] [address] Apr, [facility] [place] [facility] [address] [facility] [id number], [place] [address] Apr, [facility] [place] [facility] [address] [id number] [place] [address] Apr, [facility] [place] [facility] [address] [id number] [place] [address] Apr, [facility] [place] [facility] [address] [id number] [place] [address] Apr, [facility] [place] [facility] [address] [id number] [place] [address] Mar, [facility] [place] [facility] [address] [id number] [place] [address] Mar, [facility] [place] [facility] [address] [id number] [place] [address] Mar, [facility] [place] [facility] [address] [id number] [place] [address] Mar, [facility] [place] [facility] [address] [id number] [place] [address] Mar, [facility] [place] [facility] [address] [id number] [place] [address] Feb, [facility] [place] [facility] [address] [id number] [place] [address] Feb, [facility] [place] [facility] [address] [id number] [place] [address] Feb, [facility] [place] [facility] [address] [id number] [place] [address] Feb, [facility] [place] [facility] [address] [id number] [place] [address] Feb, [facility] [place] [facility] [address] [id number] [place] [address] Jan, [facility] [place] [facility] [address] [id number] [place] [address] Jan, [facility] [place] [facility] [address] [id number] [place] [address] Nov, [facility] [address] [id number] [place] [address] Nov, [facility] [place] [facility] [address] [id number] [place] [address] Nov, [facility] [address] [facility] [id number] [place] [address] Nov, [facility] [place] [facility] [address] [id number] [place] [address] October, [facility] [address] [id number] [place] [address] Sep, [facility] [place] [facility] [address] [id number] [place] [address] Aug, [facility] [address] [id number] [place] [address] Aug, [facility] [place] [facility] [address] [id number], [place] [address] Aug, [facility] [address] [id number], [place] [address] Aug, [facility] [place] [facility] [address] [facility] [id number], [place] [address] Jul, [facility] [address] [id number], [place] [address] Jun, [facility] [place] [facility] [address] [id number], [place] [address] Jun, [facility] [place] [facility] [address] [id number], [place] [address] May, [facility] [place] [facility] [address] [facility] [id number], [place] [address] May, [facility] [place] [facility] [address] [id number] [place] [id number] Mar, [facility] [place] [facility] [address] [id number] [place] [address] Mar, [facility] [place] [facility] [address] [id number] [place] [address] Mar, 2011 [facility] [place] [facility] [address] [id number] [place] [address] Mar, [facility] [place] [facility] [address] [id number] [place] [address] Mar, 2011 [facility] [place] [facility] [address] [id number] [place] [address] Mar, [facility] [place] [facility] [address] [id number] [place] [address] Mar, [facility] [place] [facility] [address] [id number] [place] [address] Mar, [facility] [place] [facility] [address] [id number] [place] [address] Mar, [facility] [place] [facility] [address] [id number] [place] [address] Mar, [facility] [place] [facility] [address] [id number] [place] [address] 20 Mar, 2012 [facility] [place] [facility] [address] [id number] [place] [address] Mar, [facility] [place] [facility] [address] [id number] [place] [address] 17 Mar, 2012 [facility] [place] [facility] [address] [id number], [place] [address] 15 Mar, 2012 [facility] [place] [facility] [address] [id number] [place] [address] 15 Mar, 2012 [facility] [place] [facility] [address] [id number], [place] [address] 15 Mar, 2012 [facility] [place] [facility] [address] [id number], [place] [address] 15 Mar, 2012 [facility] [place] [facility] [address] [id number] [place] [address] Mar, [facility] [place] [facility] [address] [id number] [place] [address] Mar, [facility] [place] [facility] [address] [id number] [place] [address] Mar, [facility] [place] [facility] [address] [id number] [place] [address] Mar, [facility] [place] [facility] [address] [id number] [place] [address] Mar, [facility] [place] [facility] [address] [id number] [place] [address] Mar, [facility] [place] [facility] [address] [id number] [place] [address] 19 Feb, 2012 [facility] [place] [facility] [address] [id number] [place] [address] 18 Feb, 2012 [facility] [place] [facility] [address] [id number] [place] [address] 17 Feb, 2012 [facility] [place] [facility] [address] [id number] [place] [address] 14 Feb, 2012 [facility] [place] [facility] [address] [id number] [place] [address] 14 Feb, 2012 [facility] [place] [facility] [address] [id number] [place] [address] 12 Feb, 2012 [facility] [place] [facility] [address] [id number] [place] [address] 10 Feb, 2012 [facility] [place] [facility] [address] [id number] [place] [address] 31 Jan, 2012 [facility] [place] [facility] [address] [id number] [place] [address] 30 Jan, 2012 [facility] [place] [facility] [address] [id number] [place] [address] Jan, [facility] [place] [facility] [address] [id number] [place] [address] Jan, [facility] [place] [facility] [address] [id number] [place] [address] Jan, [facility] [place] [facility] [address] [id number] [place] [address] Jan, [facility] [place] [facility] [address] [id number] [place] [address] Jan, [facility] [place] [facility] [address] [id number] [place] [address] Jan, [facility] [place] [facility] [address] [id number] [place] [address] Jan, [facility] [place] [facility] [address] [id number] [place] [address] Jan, [facility] [place] [facility] [address] [id number] [place] [address] Dec, [facility] [place] [facility] [address] [id number] [place] [address] 24 Dec, 2011 [facility] [place] [facility] [address] [id number] [place] [address] Dec, [facility] [place] [facility] [address] [id number] [place] [address] Dec, [facility] [place] [facility] [address] [id number] [place] [address] 18 Dec, 2011 [facility] [place] [facility] [address] [id number] [place] [address] Dec, [facility] [place] [facility] [address] [id number] [place] [address] 16 Dec, 2011 [facility] [place] [facility] [address] [id number] [place] [address] 14 Dec, 2011 [facility] [place] [facility] [id number], [place] [address] Dec, [facility] [id number], [place] [address] Dec, [facility] [id number], [place] [address] Dec, [facility] [id number], [place] [address] Nov, [facility] [id number], [place] [address] Nov, [facility] [id number] [place] [address] Nov, [facility] [id number], [place] [address] Nov, [facility] [id number] [place] [address] Nov, [facility] [id number], [place] [address] Nov, [facility] [id number], [place] [address] Nov, [facility] [id number], [place] [address] Nov, [facility] [id number], [place] [address] Nov, [facility] [address] [id number] [address] Nov, [facility] [id number], [place] [address] October, IMMUNIZATIONS No Known Immunizations SOCIAL HISTORY Never Assessed REASON FOR VISIT EMR-[facility] PLAN OF CARE VITAL SIGNS MEDICATIONS Unknown [...] hysterectomy-total 2005 Surgical History lower GI [place] -not sure results Surgical History EGD Hospitalization [...]
--- OUTSIDE RECORDS SUMMARY | 2018-11-18 20:24 | XMS REPORT ---
Author Author Migration, Doctor Organization [facility] Address Unknown Phone Unavailable Care Team Providers Care Ground Support Equipment Assembler Name Role Phone Migration, Doctor Unavailable Unavailable PROBLEMS Type Condition ICD9-CM Code SSC62-ZR Code Onset Dates Condition Status SNOMED Code Problem Elevated liver enzymes R74.8 Active 359073823 Problem Abnormal glucose R73.09 Active 229744247 Problem Hyperlipidemia LDL goal <100 E78.5 Active 26401228 Problem Hypokalemia E87.6 Active 06444076 Problem Major depressive disorder, recurrent episode, moderate F33.1 Active 754162808 Problem Tremor, hereditary, benign G25.0 Active 043344205 Problem Chronic migraine without aura with status migrainosus, not intractable G43.701 Active 805725705 Problem 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 Active 85852895 Problem Other chronic pain G89.29 Active 22836444 Problem Seizure disorder G40.909 Active 730906548 Problem Other chronic pain G89.29 Active 23222392 Problem Essential hypertension I10 Active 36763750 Problem Reflux gastritis K29.60 Active 64945509 Problem Irritable bowel K58.9 Active 16972619 Problem Primary insomnia F51.01 Active 0322243 Problem Moderate persistent asthma without complication J45.40 Active 622849153 Problem Moderate persistent asthma with exacerbation J45.41 Active 775504119 Problem Intractable chronic migraine without aura and with status migrainosus G43.711 Active 718199622 ALLERGIES No Information ENCOUNTERS Encounter Location Date Diagnosis [facility] [address] [facility] [id number] [address] Sep, [facility] [address] [id number] [address] Sep, Viral gastroenteritis A08.4 [facility] [address] [id number], [place] [address] Aug, Headache R51 ; Viral upper respiratory tract infection J06.9 and Nausea R11.0 [facility] [address] [id number] [address] Jun, Reflux gastritis K29.60 [facility] [id number] [place] [address] Jun, [facility] [id number] [place] [address] May, [facility] [address] [address] May, [facility] [id number] [place] [address] Apr, Bowel habit changes R19.4 and Acute cystitis without hematuria N30.00 [facility] [id number] [place] [address] Apr, Pain in right shoulder M25.511 [facility] [address] [address] Apr, [facility] [id number] [place] [address] Mar, [facility] [id number] [place] [address] Mar, [facility] [id number] [place] [address] Mar, [facility] [id number] [place] [address] Mar, [facility] [id number] [place] [address] 14 Feb, 2018 [facility] [id number] [place] [address] 10 Feb, 2018 [facility] [id number] [place] [address] 05 Feb, 2018 [facility] [id number] [place] [address] Jan, [facility] [id number] [place] [address] Dec, [place] [address] [address] Dec, Other chronic pain G89.29 ; Pain in right shoulder M25.511 and Liver enzyme elevation R74.8 [place] [address] [address] Nov, Other chronic pain G89.29 and Pain in right shoulder M25.511 [place] [address] [address] October, [facility] [address] [address] October, Right shoulder pain, unspecified chronicity M25.511 [place] [address] [address] Aug, Elevated liver enzymes R74.8 and Hyperlipidemia LDL goal <100 E78.5 [place] [address] [address] Aug, [place] [id number] [place] [address] Jul, [place] [id number] [place] [address] Jul, Intractable chronic migraine without aura and with status migrainosus G43.711 ; Fever, unspecified fever cause R50.9 and Elevated liver enzymes R74.8 [place] [id number] [place] [address] Jun, Difficulty urinating R39.198 and Moderate persistent asthma with exacerbation J45.41 [place] [address] [address] Jun, [place] [id number] [place] [address] Jun, Moderate persistent asthma with exacerbation J45.41 [place] [address] [address] May, Elevated liver enzymes R74.8 and Hyperlipidemia LDL goal <100 E78.5 [place] [address] [address] May, Elevated lipids E78.5 [place] [address] [address] Apr, Elevated liver enzymes R74.8 [place] [address] [address] Apr, Elevated liver enzymes R74.8 [place] [id number] [place] [address] Apr, Superior glenoid labrum lesion of right shoulder, subsequent encounter S43.431D [place] [id number] [place] [address] Apr, Hypokalemia E87.6 ; Major depressive disorder, recurrent episode, moderate F33.1 ; Other abnormalities of breathing R06.89 and Dyspnea, unspecified R06.00 [facility] [id number] [place] [address] Mar, Moderate persistent asthma without complication J45.40 [place] [id number] [place] [address] Mar, Impingement syndrome of right shoulder M75.41 [place] [id number] [place] [address] Jan, [place] [id number] [place] [address] Jan, Chronic migraine without aura with status migrainosus, not intractable G43.701 ; Essential hypertension I10 ; Irritable bowel K58.9 ; Primary insomnia F51.01 and Hypokalemia E87.6 [facility] [id number] [place] [address] Dec, [facility] [id number] [place] [address] Dec, Pain in right shoulder M25.511 [facility] [id number] [place] [address] Dec, Essential hypertension I10 [facility] [id number] [place] [address] Dec, [facility] [id number] [place] [address] Nov, Essential hypertension I10 [facility] [id number] [place] [address] 14 Nov, 2016 Pain in right shoulder M25.511 [facility] [id number] [place] [address] Nov, Pain in right shoulder M25.511 [facility] [id number] [place] [address] October, [facility] [id number] [place] [address] October, Pain in right shoulder M25.511 [facility] [id number] [place] [address] Sep, Arm pain, right M79.601 [facility] [address] [id number] [address] Sep, [facility] [id number] [place] [address] Sep, Abnormal glucose R73.09 and Elevated lipids E78.5 [facility] [id number] [place] [address] Sep, Abnormal glucose R73.09 and Elevated lipids E78.5 [place] [id number] [place] [address] Aug, [place] [id number] [place] [address] Aug, [place] [id number] [place] [address] Aug, [place] [address] [address] Aug, 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 ; Hypokalemia E87.6 ; Irritable bowel K58.9 ; Essential hypertension I10 ; Pain in right shoulder M25.511 ; Seizure disorder G40.909 and Screening for lipid disorders Z13.220 [place] [id number] [place] [address] Jul, Other chronic pain G89.29 and Pain in right shoulder M25.511 [place] [id number] [place] [address] 14 Jul, 2016 Biceps muscle strain, right, subsequent encounter S46.111D [facility] [place] [id number] [place] [address] 08 Jul, 2016 Arm pain, right M79.601 [place] [id number] [place] [address] Jun, [place] [id number] [place] [address] Jun, Acute non-recurrent frontal sinusitis J01.10 [place] [id number] [place] [address] 14 May, 2016 Generalized abdominal pain R10.84 ; Urinary tract infection without hematuria, site unspecified N39.0 ; Hypokalemia E87.6 ; Essential hypertension I10 ; Screening for lipid disorders Z13.220 ; Seizure R56.9 and Low back pain M54.5 [place] [id number] [place] [address] Apr, [facility] [id number] [place] [address] Feb, [facility] [id number] [place] [address] Jan, [facility] [id number] [place] [address] Dec, 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 ; Hypokalemia E87.6 ; Irritable bowel K58.9 and Nausea R11.0 [facility] [id number] [place] [address] Dec, Generalized abdominal pain R10.84 [place] [id number] [place] [address] Nov, [facility] [address] [address] Aug, Acute bronchitis J20.9 [place] [id number] [place] [address] Aug, [facility] [id number] [place] [address] Aug, Low back pain M54.5 ; Hypokalemia E87.6 ; Chronic migraine without aura with status migrainosus, not intractable G43.701 ; Tremor, hereditary, benign G25.0 ; Irritable bowel K58.9 ; Essential hypertension I10 and Seizure R56.9 [facility] [id number] [place] [address] Aug, [place] [address] [address] Jul, [facility] [id number] [place] [address] Jul, Low back pain M54.5 ; Hypokalemia E87.6 ; Chronic migraine without aura with status migrainosus, not intractable G43.701 ; Tremor, hereditary, benign G25.0 ; Irritable bowel K58.9 ; Essential hypertension I10 and Seizure R56.9 [place] [address] [address] 20 Jun, 2015 Hypokalemia E87.6 [place] [address] [address] 15 Jun, 2015 ADD (attention deficit disorder) without hyperactivity F90.0 ; Generalized anxiety disorder F41.1 and Major depressive disorder, recurrent episode, moderate F33.1 [place] [address] [address] 13 Jun, 2015 Low back pain M54.5 ; Hypokalemia E87.6 ; Chronic migraine without aura with status migrainosus, not intractable G43.701 ; Tremor, hereditary, benign G25.0 ; Irritable bowel K58.9 ; Essential hypertension I10 and Seizure R56.9 [place] [address] [address] Jun, [place] [address] [address] May, [place] [address] [address] 30 May, 2015 Low back pain M54.5 ; Hypokalemia E87.6 ; Chronic migraine without aura with status migrainosus, not intractable G43.701 ; Tremor, hereditary, benign G25.0 ; Irritable bowel K58.9 ; Essential hypertension I10 ; Seizure R56.9 and Tinea capitis B35.0 [place] [id number] [place] [address] 17 May, 2015 Low back pain M54.5 ; Hypokalemia E87.6 ; Chronic migraine without aura with status migrainosus, not intractable G43.701 ; Tremor, hereditary, benign G25.0 ; Irritable bowel K58.9 ; Essential hypertension I10 ; Seizure R56.9 ; Otitis media, left H66.92 and Dysuria 788.1 [place] [id number] [place] [address] May, Tooth pain K08.8 [place] [id number] [place] [address] May, [place] [address] [address] May, Low back pain M54.5 ; Hypokalemia E87.6 ; Chronic migraine without aura with status migrainosus, not intractable G43.701 ; Tremor, hereditary, benign G25.0 ; Irritable bowel K58.9 and Essential hypertension I10 [place] [id number] [place] [address] Apr, Low back pain M54.5 ; Hypokalemia E87.6 ; Chronic migraine without aura with status migrainosus, not intractable G43.701 ; Tremor, hereditary, benign G25.0 and Irritable bowel K58.9 [place] [id number] [place] [address] Apr, Low back pain M54.5 [place] [id number] [place] [address] Mar, [place] [address] [address] Mar, Irritable bowel syndrome with diarrhea K58.0 [place] [id number] [place] [address] Mar, [place] [id number] [place] [address] Feb, [facility] [id number] [place] [address] Feb, [place] [id number] [place] [address] Feb, Irritable bowel syndrome 564.1 ; Lumbago 724.2 and Cervical pain (neck) 723.1 [facility] [id number] [place] [address] Dec, Major depressive disorder, recurrent episode, moderate 296.32 and Generalized anxiety disorder 300.02 [facility] [id number] [place] [address] Nov, [facility] [id number] [place] [address] Nov, Major depressive disorder, recurrent episode, moderate 296.32 [facility] [id number] [place] [address] Nov, Constipation 564.00 ; Nausea & vomiting 787.01 and Abdominal pain 789.00 [facility] [id number] [place] [address] Nov, [facility] [id number] [place] [address] October, [facility] [id number] [place] [address] October, [facility] [id number] [place] [address] October, [facility] [id number] [place] [address] October, [facility] [id number] [place] [address] Sep, Dysuria 788.1 [facility] [id number] [place] [address] Sep, [facility] [id number] [place] [address] Sep, [facility] [address] [place] [address] 14 Sep, 2014 [facility] [place] [facility] [address] [id number] [place] [address] 13 Sep, 2014 [facility] [place] [facility] [address] [id number] [place] [address] 30 Aug, 2014 [facility] [place] [facility] [address] [id number] [place] [address] 30 Aug, 2014 [facility] [place] [facility] [address] [id number] [place] [address] Aug, [facility] [place] [facility] [address] [id number] [place] [address] Aug, [facility] [place] [facility] [address] [id number] [place] [address] Aug, [facility] [place] [facility] [address] [id number] [place] [address] Aug, [facility] [place] [facility] [address] [id number] [place] [address] Aug, [facility] [place] [facility] [address] [id number] [place] [address] Aug, [facility] [place] [facility] [address] [id number] [place] [address] Aug, [facility] [place] [facility] [address] [id number] [place] [address] Aug, [facility] [place] [facility] [address] [id number] [place] [address] Jun, [facility] [place] [facility] [address] [id number] [place] [address] Jun, [facility] [place] [facility] [address] [id number] [place] [address] Jun, [facility] [place] [facility] [address] [id number] [place] [address] Jun, [facility] [place] [facility] [address] [id number] [place] [address] May, [facility] [place] [facility] [address] [id number] [place] [address] May, [facility] [place] [facility] [address] [id number] [place] [address] May, [facility] [place] [facility] [address] [id number] [place] [address] May, [facility] [place] [facility] [address] [id number] [place] [address] May, [facility] [place] [facility] [address] [id number] [place] [address] May, [facility] [place] [facility] [address] [id number] [place] [address] May, [facility] [place] [facility] [address] [id number] [place] [address] May, [facility] [place] [facility] [address] [id number] [place] [address] Mar, [facility] [place] [facility] [address] [id number] [place] [address] Mar, [facility] [place] [facility] [address] [id number] [place] [address] Mar, [facility] [place] [facility] [address] [id number] [place] [address] Mar, [facility] [place] [facility] [address] [id number] [place] [address] Mar, [facility] [place] [facility] [address] [id number] [place] [address] Mar, [facility] [place] [facility] [address] [id number] [place] [address] Mar, [facility] [place] [facility] [address] [id number] [place] [address] Mar, [facility] [place] [facility] [address] [id number] [place] [address] Mar, [facility] [place] [facility] [address] [id number] [place] [address] Mar, [facility] [place] [facility] [address] [id number] [place] [address] Mar, [facility] [place] [facility] [address] [id number] [place] [address] Mar, [facility] [place] [facility] [address] [id number] [place] [address] Feb, [facility] [place] [facility] [address] [id number] [place] [address] Feb, [facility] [place] [facility] [address] [id number] [place] [address] Feb, [facility] [place] [facility] [address] [id number] [place] [address] Feb, [facility] [place] [facility] [address] [id number] [place] [address] Feb, [facility] [place] [facility] [address] [id number] [place] [address] Feb, [facility] [place] [facility] [address] [id number] [place] [address] Jan, [facility] [place] [facility] [address] [id number] [place] [address] Jan, [facility] [place] [facility] [address] [id number] [place] [address] Jan, [facility] [place] [facility] [address] [id number] [place] [address] Jan, [facility] [place] [facility] [address] [id number] [place] [address] Jan, [facility] [place] [facility] [address] [id number] [place] [address] Jan, [facility] [place] [facility] [address] [id number] [place] [address] Jan, [facility] [place] [facility] [address] [id number] [place] [address] Jan, [facility] [place] [facility] [address] [id number] [place] [address] Dec, [facility] [place] [facility] [address] [id number] [place] [address] Dec, [facility] [place] [facility] [address] [id number] [place] [address] Dec, [facility] [place] [facility] [address] [id number] [place] [address] Dec, [facility] [place] [facility] [address] [id number] [place] [address] Dec, [facility] [place] [facility] [address] [id number] [place] [address] Dec, [facility] [place] [facility] [address] [id number] [place] [address] Dec, [facility] [place] [facility] [address] [id number] [place] [address] Dec, [facility] [place] [facility] [address] [id number] [place] [address] October, [facility] [place] [facility] [address] [id number] [place] [address] October, [facility] [place] [facility] [address] [id number] [place] [address] Sep, [facility] [place] [facility] [address] [id number] [place] [address] Sep, [facility] [place] [facility] [address] [id number] [place] [address] Sep, [facility] [place] [facility] [address] [id number] [place] [address] Sep, [facility] [place] [facility] [address] [id number] [place] [address] Sep, [facility] [place] [facility] [address] [id number] [place] [address] Sep, [facility] [place] [facility] [address] [id number] [place] [address] Sep, [facility] [place] [facility] [address] [id number] [place] [address] Sep, [facility] [place] [facility] [address] [id number] [place] [address] Sep, [facility] [place] [facility] [address] [id number] [place] [address] Sep, [facility] [place] [facility] [address] [id number] [place] [address] Sep, [facility] [place] [facility] [address] [id number] [place] [address] Sep, [facility] [place] [facility] [address] [id number] [place] [address] Aug, [facility] [place] [facility] [address] [id number] [place] [address] Aug, [facility] [place] [facility] [address] [id number] [place] [address] Aug, [facility] [place] [facility] [address] [id number] [place] [address] Jun, [facility] [place] [facility] [address] [id number] [place] [address] Jun, [facility] [place] [facility] [address] [id number] [place] [address] Jun, [facility] [place] [facility] [address] [id number], [place] [address] Jun, [facility] [address] [id number] [place] [address] Jun, [facility] [place] [facility] [address] [id number] [place] [address] Jun, [facility] [place] [facility] [address] [facility] [id number] [place] [address] Jun, [facility] [place] [facility] [address] [id number] [place] [address] Jun, [facility] [place] [facility] [address] [id number] [place] [address] Jun, [facility] [place] [facility] [address] [id number] [place] [address] Jun, [facility] [address] [facility] [id number], [place] [address] May, [facility] [place] [facility] [address] [id number] [place] [address] May, [facility] [place] [facility] [address] [facility] [id number] [place] [address] May, [facility] [place] [facility] [address] [facility] [id number] [place] [address] May, [facility] [place] [facility] [address] [id number], [place] [address] Apr, [facility] [place] [facility] [address] [id number], [place] [address] Apr, [facility] [place] [facility] [address] [id number] [place] [address] Apr, [facility] [place] [facility] [address] [facility] [facility] [place] [id number] [place] [address] Apr, [facility] [place] [facility] [address] [facility] [id number], [place] [address] Apr, [facility] [place] [facility] [address] [id number] [place] [address] Apr, [facility] [place] [facility] [address] [id number] [place] [address] Apr, [facility] [place] [facility] [address] [id number] [place] [address] Apr, [facility] [place] [facility] [address] [id number] [place] [address] Mar, [facility] [place] [facility] [address] [id number] [place] [address] Mar, [facility] [place] [facility] [address] [id number] [place] [address] Mar, [facility] [place] [facility] [address] [id number] [place] [address] Mar, [facility] [place] [facility] [address] [id number] [place] [address] Mar, [facility] [place] [facility] [address] [id number] [place] [address] Feb, [facility] [place] [facility] [address] [id number] [place] [address] Feb, [facility] [place] [facility] [address] [id number] [place] [address] Feb, [facility] [place] [facility] [address] [id number] [place] [address] Feb, [facility] [place] [facility] [address] [id number] [place] [address] Feb, [facility] [place] [facility] [address] [id number] [place] [address] Jan, [facility] [place] [facility] [address] [id number] [place] [address] Jan, [facility] [place] [facility] [address] [id number] [place] [address] Nov, [facility] [address] [id number] [place] [address] Nov, [facility] [place] [facility] [address] [id number] [place] [address] Nov, [facility] [address] [facility] [place] [id number] [place] [address] Nov, [facility] [place] [facility] [address] [id number] [place] [address] October, [facility] [address] [id number] [place] [address] Sep, [facility] [place] [facility] [address] [id number] [place] [address] Aug, [facility] [address] [id number] [place] [address] Aug, [facility] [place] [facility] [address] [id number], [place] [address] Aug, [facility] [address] [id number], [place] [address] Aug, [facility] [place] [facility] [address] [facility] [place] [id number], [place] [address] Jul, [facility] [address] [id number], [place] [address] Jun, [facility] [place] [facility] [address] [id number], [place] [address] Jun, [facility] [place] [facility] [address] [id number], [place] [address] May, [facility] [place] [facility] [address] [facility] [place] [id number], [place] [address] May, [facility] [place] [facility] [address] [id number] [place] [id number] Mar, [facility] [place] [facility] [address] [id number] [place] [address] Mar, [facility] [place] [facility] [address] [id number] [place] [address] Mar, 2011 [facility] [place] [facility] [address] [id number] [place] [address] Mar, [facility] [place] [facility] [address] [id number] [place] [address] Mar, 2011 [facility] [place] [facility] [address] [id number] [place] [address] Mar, [facility] [place] [facility] [address] [id number] [place] [address] Mar, [facility] [place] [facility] [address] [id number] [place] [address] Mar, [facility] [place] [facility] [address] [id number] [place] [address] Mar, [facility] [place] [facility] [address] [id number] [place] [address] Mar, [facility] [place] [facility] [address] [id number] [place] [address] 20 Mar, 2012 [facility] [place] [facility] [address] [id number] [place] [address] Mar, [facility] [place] [facility] [address] [id number] [place] [address] 17 Mar, 2012 [facility] [place] [facility] [address] [id number], [place] [address] 15 Mar, 2012 [facility] [place] [facility] [address] [id number] [place] [address] 15 Mar, 2012 [facility] [place] [facility] [address] [id number], [place] [address] 15 Mar, 2012 [facility] [place] [facility] [address] [id number], [place] [address] 15 Mar, 2012 [facility] [place] [facility] [address] [id number] [place] [address] Mar, [facility] [place] [facility] [address] [id number] [place] [address] Mar, [facility] [place] [facility] [address] [id number] [place] [address] Mar, [facility] [place] [facility] [address] [id number] [place] [address] Mar, [facility] [place] [facility] [address] [id number] [place] [address] Mar, [facility] [place] [facility] [address] [id number] [place] [address] Mar, [facility] [place] [facility] [address] [id number] [place] [address] 19 Feb, 2012 [facility] [place] [facility] [address] [id number] [place] [address] 18 Feb, 2012 [facility] [place] [facility] [address] [id number] [place] [address] 17 Feb, 2012 [facility] [place] [facility] [address] [id number] [place] [address] 14 Feb, 2012 [facility] [place] [facility] [address] [id number] [place] [address] 14 Feb, 2012 [facility] [place] [facility] [address] [id number] [place] [address] 12 Feb, 2012 [facility] [place] [facility] [address] [id number] [place] [address] 10 Feb, 2012 [facility] [place] [facility] [address] [id number] [place] [address] 31 Jan, 2012 [facility] [place] [facility] [address] [id number] [place] [address] 30 Jan, 2012 [facility] [place] [facility] [address] [id number] [place] [address] Jan, [facility] [place] [facility] [address] [id number] [place] [address] Jan, [facility] [place] [facility] [address] [id number] [place] [address] Jan, [facility] [place] [facility] [address] [id number] [place] [address] Jan, [facility] [place] [facility] [address] [id number] [place] [address] Jan, [facility] [place] [facility] [address] [id number] [place] [address] Jan, [facility] [place] [facility] [address] [id number] [place] [address] Jan, [facility] [place] [facility] [address] [id number] [place] [address] Jan, [facility] [place] [facility] [address] [id number] [place] [address] Dec, [facility] [place] [facility] [address] [id number] [place] [address] 24 Dec, 2011 [facility] [place] [facility] [address] [id number] [place] [address] Dec, [facility] [place] [facility] [address] [id number] [place] [address] Dec, [facility] [place] [facility] [address] [id number] [place] [address] 18 Dec, 2011 [facility] [place] [facility] [address] [id number] [place] [address] Dec, [facility] [place] [facility] [address] [id number] [place] [address] 16 Dec, 2011 [facility] [place] [facility] [address] [id number] [place] [address] 14 Dec, 2011 [facility] [place] [facility] [id number], [place] [address] Dec, [facility] [id number], [place] [address] Dec, [facility] [id number], [place] [address] Dec, [facility] [id number], [place] [address] Nov, [facility] [id number], [place] [address] Nov, [facility] [id number] [place] [address] Nov, [facility] [id number], [place] [address] Nov, [facility] [id number] [place] [address] Nov, [facility] [id number], [place] [address] Nov, [facility] [id number], [place] [address] Nov, [facility] [id number], [place] [address] Nov, [facility] [id number], [place] [address] Nov, [facility] [id number], [place] [address] Nov, [facility] [id number], [place] [address] October, IMMUNIZATIONS No Known Immunizations SOCIAL HISTORY Never Assessed REASON FOR VISIT [place] [place] VITAL SIGNS MEDICATIONS Unknown [...] hysterectomy-total 2005 Surgical History lower GI [facility] -not sure results Surgical History EGD Hospitalization [...]
--- OUTSIDE RECORDS SUMMARY | 2018-11-18 20:24 | XMS REPORT ---
Author Author Migration, Doctor Organization [facility] Address Unknown Phone Unavailable Care Team Providers Care City Collector Name Role Phone Migration, Doctor Unavailable Unavailable PROBLEMS Type Condition ICD9-CM Code QPB31-XM Code Onset Dates Condition Status SNOMED Code Problem Elevated liver enzymes R74.8 Active 552328182 Problem Abnormal glucose R73.09 Active 724008028 Problem Hyperlipidemia LDL goal <100 E78.5 Active 19574858 Problem Hypokalemia E87.6 Active 87969901 Problem Major depressive disorder, recurrent episode, moderate F33.1 Active 394947222 Problem Tremor, hereditary, benign G25.0 Active 082972052 Problem Chronic migraine without aura with status migrainosus, not intractable G43.701 Active 742513452 Problem 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 Active 92516733 Problem Other chronic pain G89.29 Active 13525309 Problem Seizure disorder G40.909 Active 631496545 Problem Other chronic pain G89.29 Active 09116417 Problem Essential hypertension I10 Active 80382538 Problem Reflux gastritis K29.60 Active 77278324 Problem Irritable bowel K58.9 Active 02619718 Problem Primary insomnia F51.01 Active 4438570 Problem Moderate persistent asthma without complication J45.40 Active 128280639 Problem Moderate persistent asthma with exacerbation J45.41 Active 507144895 Problem Intractable chronic migraine without aura and with status migrainosus G43.711 Active 924473301 ALLERGIES No Information ENCOUNTERS Encounter Location Date Diagnosis [facility] [address] [facility] [id number] [address] Sep, [facility] [address] [id number] [address] Sep, Viral gastroenteritis A08.4 [facility] [address] [id number] [address] Aug, Headache R51 ; Viral upper respiratory tract infection J06.9 and Nausea R11.0 [facility] [address] [id number] [address] Jun, Reflux gastritis K29.60 [facility] [id number] [place] [address] Jun, [facility] [id number] [place] [address] May, [facility] [address] [address] May, [facility] [id number] [place] [address] Apr, Bowel habit changes R19.4 and Acute cystitis without hematuria N30.00 [facility] [id number] [place] [address] Apr, Pain in right shoulder M25.511 [facility] [address] [address] Apr, [facility] [id number] [place] [address] Mar, [facility] [id number] [place] [address] Mar, [facility] [id number] [place] [address] Mar, [facility] [id number] [place] [address] Mar, [facility] [id number] [place] [address] 14 Feb, 2018 [facility] [id number] [place] [address] 10 Feb, 2018 [facility] [id number] [place] [address] 05 Feb, 2018 [facility] [id number] [place] [address] Jan, [facility] [id number] [place] [address] Dec, [place] [address] [address] Dec, Other chronic pain G89.29 ; Pain in right shoulder M25.511 and Liver enzyme elevation R74.8 [place] [address] [address] Nov, Other chronic pain G89.29 and Pain in right shoulder M25.511 [place] [address] [address] October, [facility] [address] [address] October, Right shoulder pain, unspecified chronicity M25.511 [place] [address] [address] Aug, Elevated liver enzymes R74.8 and Hyperlipidemia LDL goal <100 E78.5 [place] [address] [address] Aug, [place] [id number] [place] [address] Jul, [place] [id number] [place] [address] Jul, Intractable chronic migraine without aura and with status migrainosus G43.711 ; Fever, unspecified fever cause R50.9 and Elevated liver enzymes R74.8 [place] [id number] [place] [address] Jun, Difficulty urinating R39.198 and Moderate persistent asthma with exacerbation J45.41 [place] [address] [address] Jun, [place] [id number] [place] [address] Jun, Moderate persistent asthma with exacerbation J45.41 [place] [address] [address] May, Elevated liver enzymes R74.8 and Hyperlipidemia LDL goal <100 E78.5 [place] [address] [address] May, Elevated lipids E78.5 [place] [address] [address] Apr, Elevated liver enzymes R74.8 [place] [address] [address] Apr, Elevated liver enzymes R74.8 [place] [id number] [place] [address] Apr, Superior glenoid labrum lesion of right shoulder, subsequent encounter S43.431D [place] [id number] [place] [address] Apr, Hypokalemia E87.6 ; Major depressive disorder, recurrent episode, moderate F33.1 ; Other abnormalities of breathing R06.89 and Dyspnea, unspecified R06.00 [facility] [id number] [place] [address] Mar, Moderate persistent asthma without complication J45.40 [place] [id number] [place] [address] Mar, Impingement syndrome of right shoulder M75.41 [place] [id number] [place] [address] Jan, [place] [id number] [place] [address] Jan, Chronic migraine without aura with status migrainosus, not intractable G43.701 ; Essential hypertension I10 ; Irritable bowel K58.9 ; Primary insomnia F51.01 and Hypokalemia E87.6 [facility] [id number] [place] [address] Dec, [facility] [id number] [place] [address] Dec, Pain in right shoulder M25.511 [facility] [id number] [place] [address] Dec, Essential hypertension I10 [facility] [id number] [place] [address] Dec, [facility] [id number] [place] [address] Nov, Essential hypertension I10 [facility] [id number] [place] [address] 14 Nov, 2016 Pain in right shoulder M25.511 [facility] [id number] [place] [address] Nov, Pain in right shoulder M25.511 [facility] [id number] [place] [address] October, [facility] [id number] [place] [address] October, Pain in right shoulder M25.511 [facility] [id number] [place] [address] Sep, Arm pain, right M79.601 [facility] [address] [id number] [address] Sep, [facility] [id number] [place] [address] Sep, Abnormal glucose R73.09 and Elevated lipids E78.5 [facility] [id number] [place] [address] Sep, Abnormal glucose R73.09 and Elevated lipids E78.5 [place] [id number] [place] [address] Aug, [place] [id number] [place] [address] Aug, [place] [id number] [place] [address] Aug, [place] [address] [address] Aug, 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 ; Hypokalemia E87.6 ; Irritable bowel K58.9 ; Essential hypertension I10 ; Pain in right shoulder M25.511 ; Seizure disorder G40.909 and Screening for lipid disorders Z13.220 [place] [id number] [place] [address] Jul, Other chronic pain G89.29 and Pain in right shoulder M25.511 [place] [id number] [place] [address] 14 Jul, 2016 Biceps muscle strain, right, subsequent encounter S46.111D [facility] [place] [id number] [place] [address] 08 Jul, 2016 Arm pain, right M79.601 [place] [id number] [place] [address] Jun, [place] [id number] [place] [address] Jun, Acute non-recurrent frontal sinusitis J01.10 [place] [id number] [place] [address] 14 May, 2016 Generalized abdominal pain R10.84 ; Urinary tract infection without hematuria, site unspecified N39.0 ; Hypokalemia E87.6 ; Essential hypertension I10 ; Screening for lipid disorders Z13.220 ; Seizure R56.9 and Low back pain M54.5 [place] [address] [place] [address] Apr, [facility] [id number] [place] [address] Feb, [facility] [id number] [place] [address] Jan, [facility] [id number] [place] [address] Dec, 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 ; Hypokalemia E87.6 ; Irritable bowel K58.9 and Nausea R11.0 [facility] [id number] [place] [address] Dec, Generalized abdominal pain R10.84 [place] [id number] [place] [address] Nov, [facility] [address] [address] Aug, Acute bronchitis J20.9 [place] [id number] [place] [address] Aug, [facility] [id number] [place] [address] Aug, Low back pain M54.5 ; Hypokalemia E87.6 ; Chronic migraine without aura with status migrainosus, not intractable G43.701 ; Tremor, hereditary, benign G25.0 ; Irritable bowel K58.9 ; Essential hypertension I10 and Seizure R56.9 [facility] [id number] [place] [address] Aug, [place] [address] [address] Jul, [facility] [id number] [place] [address] Jul, Low back pain M54.5 ; Hypokalemia E87.6 ; Chronic migraine without aura with status migrainosus, not intractable G43.701 ; Tremor, hereditary, benign G25.0 ; Irritable bowel K58.9 ; Essential hypertension I10 and Seizure R56.9 [place] [address] [address] 20 Jun, 2015 Hypokalemia E87.6 [place] [address] [address] 15 Jun, 2015 ADD (attention deficit disorder) without hyperactivity F90.0 ; Generalized anxiety disorder F41.1 and Major depressive disorder, recurrent episode, moderate F33.1 [place] [address] [address] 13 Jun, 2015 Low back pain M54.5 ; Hypokalemia E87.6 ; Chronic migraine without aura with status migrainosus, not intractable G43.701 ; Tremor, hereditary, benign G25.0 ; Irritable bowel K58.9 ; Essential hypertension I10 and Seizure R56.9 [place] [address] [address] Jun, [place] [address] [address] May, [place] [address] [address] 30 May, 2015 Low back pain M54.5 ; Hypokalemia E87.6 ; Chronic migraine without aura with status migrainosus, not intractable G43.701 ; Tremor, hereditary, benign G25.0 ; Irritable bowel K58.9 ; Essential hypertension I10 ; Seizure R56.9 and Tinea capitis B35.0 [place] [id number] [place] [address] 17 May, 2015 Low back pain M54.5 ; Hypokalemia E87.6 ; Chronic migraine without aura with status migrainosus, not intractable G43.701 ; Tremor, hereditary, benign G25.0 ; Irritable bowel K58.9 ; Essential hypertension I10 ; Seizure R56.9 ; Otitis media, left H66.92 and Dysuria 788.1 [place] [id number] [place] [address] May, Tooth pain K08.8 [place] [id number] [place] [address] May, [place] [address] [address] May, Low back pain M54.5 ; Hypokalemia E87.6 ; Chronic migraine without aura with status migrainosus, not intractable G43.701 ; Tremor, hereditary, benign G25.0 ; Irritable bowel K58.9 and Essential hypertension I10 [place] [id number] [place] [address] Apr, Low back pain M54.5 ; Hypokalemia E87.6 ; Chronic migraine without aura with status migrainosus, not intractable G43.701 ; Tremor, hereditary, benign G25.0 and Irritable bowel K58.9 [place] [id number] [place] [address] Apr, Low back pain M54.5 [place] [id number] [place] [address] Mar, [place] [address] [address] Mar, Irritable bowel syndrome with diarrhea K58.0 [place] [id number] [place] [address] Mar, [place] [id number] [place] [address] Feb, [facility] [id number] [place] [address] Feb, [place] [id number] [place] [address] Feb, Irritable bowel syndrome 564.1 ; Lumbago 724.2 and Cervical pain (neck) 723.1 [facility] [id number] [place] [address] Dec, Major depressive disorder, recurrent episode, moderate 296.32 and Generalized anxiety disorder 300.02 [facility] [id number] [place] [address] Nov, [facility] [id number] [place] [address] Nov, Major depressive disorder, recurrent episode, moderate 296.32 [facility] [id number] [place] [address] Nov, Constipation 564.00 ; Nausea & vomiting 787.01 and Abdominal pain 789.00 [facility] [id number] [place] [address] Nov, [facility] [id number] [place] [address] October, [facility] [id number] [place] [address] October, [facility] [id number] [place] [address] October, [facility] [id number] [place] [address] October, [facility] [id number] [place] [address] Sep, Dysuria 788.1 [facility] [id number] [place] [address] Sep, [facility] [id number] [place] [address] Sep, [facility] [address] [place] [address] 14 Sep, 2014 [facility] [place] [facility] [address] [id number] [place] [address] 13 Sep, 2014 [facility] [place] [facility] [address] [id number] [place] [address] 30 Aug, 2014 [facility] [place] [facility] [address] [id number] [place] [address] 30 Aug, 2014 [facility] [place] [facility] [address] [id number] [place] [address] Aug, [facility] [place] [facility] [address] [id number] [place] [address] Aug, [facility] [place] [facility] [address] [id number] [place] [address] Aug, [facility] [place] [facility] [address] [id number] [place] [address] Aug, [facility] [place] [facility] [address] [id number] [place] [address] Aug, [facility] [place] [facility] [address] [id number] [place] [address] Aug, [facility] [place] [facility] [address] [id number] [place] [address] Aug, [facility] [place] [facility] [address] [id number] [place] [address] Aug, [facility] [place] [facility] [address] [id number] [place] [address] Jun, [facility] [place] [facility] [address] [id number] [place] [address] Jun, [facility] [place] [facility] [address] [id number] [place] [address] Jun, [facility] [place] [facility] [address] [id number] [place] [address] Jun, [facility] [place] [facility] [address] [id number] [place] [address] May, [facility] [place] [facility] [address] [id number] [place] [address] May, [facility] [place] [facility] [address] [id number] [place] [address] May, [facility] [place] [facility] [address] [id number] [place] [address] May, [facility] [place] [facility] [address] [id number] [place] [address] May, [facility] [place] [facility] [address] [id number] [place] [address] May, [facility] [place] [facility] [address] [id number] [place] [address] May, [facility] [place] [facility] [address] [id number] [place] [address] May, [facility] [place] [facility] [address] [id number] [place] [address] Mar, [facility] [place] [facility] [address] [id number] [place] [address] Mar, [facility] [place] [facility] [address] [id number] [place] [address] Mar, [facility] [place] [facility] [address] [id number] [place] [address] Mar, [facility] [place] [facility] [address] [id number] [place] [address] Mar, [facility] [place] [facility] [address] [id number] [place] [address] Mar, [facility] [place] [facility] [address] [id number] [place] [address] Mar, [facility] [place] [facility] [address] [id number] [place] [address] Mar, [facility] [place] [facility] [address] [id number] [place] [address] Mar, [facility] [place] [facility] [address] [id number] [place] [address] Mar, [facility] [place] [facility] [address] [id number] [place] [address] Mar, [facility] [place] [facility] [address] [id number] [place] [address] Mar, [facility] [place] [facility] [address] [id number] [place] [address] Feb, [facility] [place] [facility] [address] [id number] [place] [address] Feb, [facility] [place] [facility] [address] [id number] [place] [address] Feb, [facility] [place] [facility] [address] [id number] [place] [address] Feb, [facility] [place] [facility] [address] [id number] [place] [address] Feb, [facility] [place] [facility] [address] [id number] [place] [address] Feb, [facility] [place] [facility] [address] [id number] [place] [address] Jan, [facility] [place] [facility] [address] [id number] [place] [address] Jan, [facility] [place] [facility] [address] [id number] [place] [address] Jan, [facility] [place] [facility] [address] [id number] [place] [address] Jan, [facility] [place] [facility] [address] [id number] [place] [address] Jan, [facility] [place] [facility] [address] [id number] [place] [address] Jan, [facility] [place] [facility] [address] [id number] [place] [address] Jan, [facility] [place] [facility] [address] [id number] [place] [address] Jan, [facility] [place] [facility] [address] [id number] [place] [address] Dec, [facility] [place] [facility] [address] [id number] [place] [address] Dec, [facility] [place] [facility] [address] [id number] [place] [address] Dec, [facility] [place] [facility] [address] [id number] [place] [address] Dec, [facility] [place] [facility] [address] [id number] [place] [address] Dec, [facility] [place] [facility] [address] [id number] [place] [address] Dec, [facility] [place] [facility] [address] [id number] [place] [address] Dec, [facility] [place] [facility] [address] [id number] [place] [address] Dec, [facility] [place] [facility] [address] [id number] [place] [address] October, [facility] [place] [facility] [address] [id number] [place] [address] October, [facility] [place] [facility] [address] [id number] [place] [address] Sep, [facility] [place] [facility] [address] [id number] [place] [address] Sep, [facility] [place] [facility] [address] [id number] [place] [address] Sep, [facility] [place] [facility] [address] [id number] [place] [address] Sep, [facility] [place] [facility] [address] [id number] [place] [address] Sep, [facility] [place] [facility] [address] [id number] [place] [address] Sep, [facility] [place] [facility] [address] [id number] [place] [address] Sep, [facility] [place] [facility] [address] [id number] [place] [address] Sep, [facility] [place] [facility] [address] [id number] [place] [address] Sep, [facility] [place] [facility] [address] [id number] [place] [address] Sep, [facility] [place] [facility] [address] [id number] [place] [address] Sep, [facility] [place] [facility] [address] [id number] [place] [address] Sep, [facility] [place] [facility] [address] [id number] [place] [address] Aug, [facility] [place] [facility] [address] [id number] [place] [address] Aug, [facility] [place] [facility] [address] [id number] [place] [address] Aug, [facility] [place] [facility] [address] [id number] [place] [address] Jun, [facility] [place] [facility] [address] [id number] [place] [address] Jun, [facility] [place] [facility] [address] [id number] [place] [address] Jun, [facility] [place] [facility] [address] [id number], [place] [address] Jun, [facility] [address] [address] [id number] [place] [address] Jun, [facility] [place] [facility] [address] [id number] [place] [address] Jun, [facility] [place] [facility] [address] [facility] [id number] [place] [address] Jun, [facility] [place] [facility] [address] [id number] [place] [address] Jun, [facility] [place] [facility] [address] [id number] [place] [address] Jun, [facility] [place] [facility] [address] [id number] [place] [address] Jun, [facility] [address] [facility] [id number], [place] [address] May, [facility] [place] [facility] [address] [id number] [place] [address] May, [facility] [place] [facility] [address] [facility] [id number] [place] [address] May, [facility] [place] [facility] [address] [facility] [id number] [place] [address] May, [facility] [place] [facility] [address] [id number], [place] [address] Apr, [facility] [place] [facility] [address] [id number][place] [address] Apr, [facility] [place] [facility] [address] [id number] [place] [address] Apr, [facility] [place] [facility] [address] [facility] [id number] [place] [address] Apr, [facility] [place] [facility] [address] [facility] [id number][place] [address] Apr, [facility] [place] [facility] [address] [id number] [place] [address] Apr, [facility] [place] [facility] [address] [id number] [place] [address] Apr, [facility] [place] [facility] [address] [id number] [place] [address] Apr, [facility] [place] [facility] [address] [id number] [place] [address] Mar, [facility] [place] [facility] [address] [id number] [place] [address] Mar, [facility] [place] [facility] [address] [id number] [place] [address] Mar, [facility] [place] [facility] [address] [id number] [place] [address] Mar, [facility] [place] [facility] [address] [id number] [place] [address] Mar, [facility] [place] [facility] [address] [id number] [place] [address] Feb, [facility] [place] [facility] [address] [id number] [place] [address] Feb, [facility] [place] [facility] [address] [id number] [place] [address] Feb, [facility] [place] [facility] [address] [id number] [place] [address] Feb, [facility] [place] [facility] [address] [id number] [place] [address] Feb, [facility] [place] [facility] [address] [id number] [place] [address] Jan, [facility] [place] [facility] [address] [id number] [place] [address] Jan, [facility] [place] [facility] [address] [id number] [place] [address] Nov, [facility] [address] [id number] [place] [address] Nov, [facility] [place] [facility] [address] [id number] [place] [address] Nov, [facility] [address] [facility] [id number] [place] [address] Nov, [facility] [place] [facility] [address] [id number] [place] [address] October, [facility] [address] [id number] [place] [address] Sep, [facility] [place] [facility] [address] [id number] [place] [address] Aug, [facility] [address] [id number] [place] [address] Aug, [facility] [place] [facility] [address] [id number], [place] [address] Aug, [facility] [address] [id number], [place] [address] Aug, [facility] [place] [facility] [address] [facility] [id number], [place] [address] Jul, [facility] [address] [id number], [place] [address] Jun, [facility] [place] [facility] [address] [id number], [place] [address] Jun, [facility] [place] [facility] [address] [id number], [place] [address] May, [facility] [place] [facility] [address] [facility] [id number], [place] [address] May, [facility] [place] [facility] [address] [id number] [place] [address] Mar, [facility] [place] [facility] [address] [id number] [place] [address] Mar, [facility] [place] [facility] [address] [id number] [place] [address] Mar, 2011 [facility] [place] [facility] [address] [id number] [place] [address] Mar, [facility] [place] [facility] [address] [id number] [place] [address] Mar, 2011 [facility] [place] [facility] [address] [id number] [place] [address] Mar, [facility] [place] [facility] [address] [id number] [place] [address] Mar, [facility] [place] [facility] [address] [id number] [place] [address] Mar, [facility] [place] [facility] [address] [id number] [place] [address] Mar, [facility] [place] [facility] [address] [id number] [place] [address] Mar, [facility] [place] [facility] [address] [id number] [place] [address] 20 Mar, 2012 [facility] [place] [facility] [address] [id number] [place] [address] Mar, [facility] [place] [facility] [address] [id number] [place] [address] 17 Mar, 2012 [facility] [place] [facility] [address] [id number], [place] [address] 15 Mar, 2012 [facility] [place] [facility] [address] [id number] [place] [address] 15 Mar, 2012 [facility] [place] [facility] [address] [id number], [place] [address] 15 Mar, 2012 [facility] [place] [facility] [address] [id number], [place] [address] 15 Mar, 2012 [facility] [place] [facility] [address] [id number] [place] [address] Mar, [facility] [place] [facility] [address] [id number] [place] [address] Mar, [facility] [place] [facility] [address] [id number] [place] [address] Mar, [facility] [place] [facility] [address] [id number] [place] [address] Mar, [facility] [place] [facility] [address] [id number] [place] [address] Mar, [facility] [place] [facility] [address] [id number] [place] [address] Mar, [facility] [place] [facility] [address] [id number] [place] [address] 19 Feb, 2012 [facility] [place] [facility] [address] [id number] [place] [address] 18 Feb, 2012 [facility] [place] [facility] [address] [id number] [place] [address] 17 Feb, 2012 [facility] [place] [facility] [address] [id number] [place] [address] 14 Feb, 2012 [facility] [place] [facility] [address] [id number] [place] [address] 14 Feb, 2012 [facility] [place] [facility] [address] [id number] [place] [address] 12 Feb, 2012 [facility] [place] [facility] [address] [id number] [place] [address] 10 Feb, 2012 [facility] [place] [facility] [address] [id number] [place] [address] 31 Jan, 2012 [facility] [place] [facility] [address] [id number] [place] [address] 30 Jan, 2012 [facility] [place] [facility] [address] [id number] [place] [address] Jan, [facility] [place] [facility] [address] [id number] [place] [address] Jan, [facility] [place] [facility] [address] [id number] [place] [address] Jan, [facility] [place] [facility] [address] [id number] [place] [address] Jan, [facility] [place] [facility] [address] [id number] [place] [address] Jan, [facility] [place] [facility] [address] [id number] [place] [address] Jan, [facility] [place] [facility] [address] [id number] [place] [address] Jan, [facility] [place] [facility] [address] [id number] [place] [address] Jan, [facility] [place] [facility] [address] [id number] [place] [address] Dec, [facility] [place] [facility] [address] [id number] [place] [address] 24 Dec, 2011 [facility] [place] [facility] [address] [id number] [place] [address] Dec, [facility] [place] [facility] [address] [id number] [place] [address] Dec, [facility] [place] [facility] [address] [id number] [place] [address] 18 Dec, 2011 [facility] [place] [facility] [address] [id number] [place] [address] Dec, [facility] [place] [facility] [address] [id number] [place] [address] 16 Dec, 2011 [facility] [place] [facility] [address] [id number] [place] [address] 14 Dec, 2011 [facility] [place] [facility] [id number], [place] [address] Dec, [facility] [id number], [place] [address] Dec, [facility] [id number], [place] [address] Dec, [facility] [id number], [place] [address] Nov, [facility] [id number], [place] [address] Nov, [facility] [id number] [place] [address] Nov, [facility] [id number], [place] [address] Nov, [facility] [id number] [place] [address] Nov, [facility] [id number], [place] [address] Nov, [facility] [id number], [place] [address] Nov, [facility] [id number], [place] [address] Nov, [facility] [id number], [place] [address] Nov, [facility] [id number], [place] [address] Nov, [facility] [id number], [place] [address] October, IMMUNIZATIONS No Known Immunizations SOCIAL HISTORY Never Assessed REASON FOR VISIT EMR-[facility] PLAN OF CARE VITAL SIGNS MEDICATIONS Unknown [...] hysterectomy-total 2005 Surgical History lower GI [facility] -not sure results Surgical History EGD Hospitalization [...]
--- OUTSIDE RECORDS SUMMARY | 2018-11-18 20:25 | XMS REPORT ---
Author Author Migration, Doctor Organization [facility] Address Unknown Phone Unavailable Care Team Providers Care Electrician Name Role Phone Migration, Doctor Unavailable Unavailable PROBLEMS Type Condition ICD9-CM Code IKQ21-AB Code Onset Dates Condition Status SNOMED Code Problem Elevated liver enzymes R74.8 Active 871918465 Problem Abnormal glucose R73.09 Active 507218715 Problem Hyperlipidemia LDL goal <100 E78.5 Active 34630240 Problem Hypokalemia E87.6 Active 90368940 Problem Major depressive disorder, recurrent episode, moderate F33.1 Active 113376761 Problem Tremor, hereditary, benign G25.0 Active 263181449 Problem Chronic migraine without aura with status migrainosus, not intractable G43.701 Active 879026347 Problem 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 Active 16257661 Problem Other chronic pain G89.29 Active 43679328 Problem Seizure disorder G40.909 Active 928406548 Problem Other chronic pain G89.29 Active 72625219 Problem Essential hypertension I10 Active 79646568 Problem Reflux gastritis K29.60 Active 33760221 Problem Irritable bowel K58.9 Active 68927207 Problem Primary insomnia F51.01 Active 1188387 Problem Moderate persistent asthma without complication J45.40 Active 441901294 Problem Moderate persistent asthma with exacerbation J45.41 Active 685112330 Problem Intractable chronic migraine without aura and with status migrainosus G43.711 Active 130924625 ALLERGIES No Information ENCOUNTERS Encounter Location Date Diagnosis [facility] [address] [facility] [id number] [address] Sep, Viral gastroenteritis A08.4 [facility] [address] [id number] [address] Aug, Headache R51 ; Viral upper respiratory tract infection J06.9 and Nausea R11.0 [facility] [address] [id number] [address] Jun, Reflux gastritis K29.60 [facility] [id number] [place] [address] Jun, [facility] [id number] [place] [address] May, [facility] [id number] [place] [address] May, [facility] [id number] [place] [address] Apr, Bowel habit changes R19.4 and Acute cystitis without hematuria N30.00 [facility] [id number] [place] [address] Apr, Pain in right shoulder M25.511 [facility] [id number] [place] [address] Apr, [facility] [id number] [place] [address] Mar, [facility] [id number] [place] [address] Mar, [facility] [id number] [place] [address] Mar, [facility] [id number] [place] [address] Mar, [facility] [id number] [place] [address] Feb, [facility] [id number] [place] [address] Feb, [facility] [id number] [place] [address] Feb, [facility] [id number] [place] [address] Jan, [facility] [id number] [place] [address] Dec, [facility] [id number] [place] [address] Dec, Other chronic pain G89.29 ; Pain in right shoulder M25.511 and Liver enzyme elevation R74.8 [facility] [id number] [place] [address] Nov, Other chronic pain G89.29 and Pain in right shoulder M25.511 [facility] [address] [address] October, [facility] [address] [address] October, Right shoulder pain, unspecified chronicity M25.511 [place] [id number] [place] [address] Aug, Elevated liver enzymes R74.8 and Hyperlipidemia LDL goal <100 E78.5 [place] [id number] [place] [address] Aug, [place] [address] [address] Jul, [place] [id number] [place] [address] Jul, Intractable chronic migraine without aura and with status migrainosus G43.711 ; Fever, unspecified fever cause R50.9 and Elevated liver enzymes R74.8 [place] [id number] [place] [address] Jun, Difficulty urinating R39.198 and Moderate persistent asthma with exacerbation J45.41 [place] [id number] [place] [address] Jun, [place] [id number] [place] [address] Jun, Moderate persistent asthma with exacerbation J45.41 [facility] [id number] [place] [address] May, Elevated liver enzymes R74.8 and Hyperlipidemia LDL goal <100 E78.5 [place] [address] [address] May, Elevated lipids E78.5 [place] [address] [address] Apr, Elevated liver enzymes R74.8 [place] [address] [address] Apr, Elevated liver enzymes R74.8 [place] [address] [address] Apr, Superior glenoid labrum lesion of right shoulder, subsequent encounter S43.431D [address] [address] Apr, Hypokalemia E87.6 ; Major depressive disorder, recurrent episode, moderate F33.1 ; Other abnormalities of breathing R06.89 and Dyspnea, unspecified R06.00 [facility] [address] [address] Mar, Moderate persistent asthma without complication J45.40 [place] [address] [address] Mar, Impingement syndrome of right shoulder M75.41 [place] [id number] [place] [address] Jan, [address] [address] Jan, Chronic migraine without aura with status migrainosus, not intractable G43.701 ; Essential hypertension I10 ; Irritable bowel K58.9 ; Primary insomnia F51.01 and Hypokalemia E87.6 [facility] [address] [address] Dec, [facility] [id number] [place] [address] Dec, Pain in right shoulder M25.511 [facility] [address] [place] [address] Dec, Essential hypertension I10 [facility] [id number] [place] [address] Dec, [facility] [id number] [place] [address] Nov, Essential hypertension I10 [facility] [id number] [place] [address] 14 Nov, 2016 Pain in right shoulder M25.511 [facility] [id number] [place] [address] Nov, Pain in right shoulder M25.511 [facility] [id number] [place] [address] October, [facility] [id number] [place] [address] October, Pain in right shoulder M25.511 [facility] [address] [place] [address] Sep, Arm pain, right M79.601 [facility] [address] [place] [address] Sep, [facility] [address] [place] [address] Sep, Abnormal glucose R73.09 and Elevated lipids E78.5 [facility] [address] [place] [address] Sep, Abnormal glucose R73.09 and Elevated lipids E78.5 [facility] [id number] [place] [address] Aug, [place] [id number] [place] [address] Aug, [place] [address] [address] Aug, [place] [id number] [place] [address] Aug, 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 ; Hypokalemia E87.6 ; Irritable bowel K58.9 ; Essential hypertension I10 ; Pain in right shoulder M25.511 ; Seizure disorder G40.909 and Screening for lipid disorders Z13.220 [place] [address] [address] Jul, Other chronic pain G89.29 and Pain in right shoulder M25.[address] [address] 14 Jul, 2016 Biceps muscle strain, right, subsequent encounter S46.111D [facility] [address] [address] Jul, Arm pain, right M79.601 [place] [id number] [place] [address] Jun, [place] [id number] [place] [address] Jun, Acute non-recurrent frontal sinusitis J01.10 [place] [id number] [place] [address] May, Generalized abdominal pain R10.84 ; Urinary tract infection without hematuria, site unspecified N39.0 ; Hypokalemia E87.6 ; Essential hypertension I10 ; Screening for lipid disorders Z13.220 ; Seizure R56.9 and Low back pain M54.5 [place] [id number] [place] [address] Apr, [facility] [address] [address] Feb, [place] [id number] [place] [address] Jan, [place] [id number] [place] [address] Dec, 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 ; Hypokalemia E87.6 ; Irritable bowel K58.9 and Nausea R11.0 [facility] [id number] [place] [address] Dec, Generalized abdominal pain R10.84 [place] [id number] [place] [address] Nov, [facility] [place] [id number] [place] [address] Aug, Acute bronchitis J20.9 [place] [id number] [place] [address] Aug, [place] [id number] [place] [address] 08 Aug, 2015 Low back pain M54.5 ; Hypokalemia E87.6 ; Chronic migraine without aura with status migrainosus, not intractable G43.701 ; Tremor, hereditary, benign G25.0 ; Irritable bowel K58.9 ; Essential hypertension I10 and Seizure R56.9 [place] [address] [place] [address] Aug, [place] [id number] [place] [address] Jul, [place] [id number] [place] [address] 03 Jul, 2015 Low back pain M54.5 ; Hypokalemia E87.6 ; Chronic migraine without aura with status migrainosus, not intractable G43.701 ; Tremor, hereditary, benign G25.0 ; Irritable bowel K58.9 ; Essential hypertension I10 and Seizure R56.9 [place] [address] [address] 20 Jun, 2015 Hypokalemia E87.6 [place] [address] [address] 15 Jun, 2015 ADD (attention deficit disorder) without hyperactivity F90.0 ; Generalized anxiety disorder F41.1 and Major depressive disorder, recurrent episode, moderate F33.1 [place] [address] [address] 13 Jun, 2015 Low back pain M54.5 ; Hypokalemia E87.6 ; Chronic migraine without aura with status migrainosus, not intractable G43.701 ; Tremor, hereditary, benign G25.0 ; Irritable bowel K58.9 ; Essential hypertension I10 and Seizure R56.9 [place] [address] [address] 04 Jun, 2015 [place] [address] [address] 31 May, 2015 [place] [address] [address] 30 May, 2015 Low back pain M54.5 ; Hypokalemia E87.6 ; Chronic migraine without aura with status migrainosus, not intractable G43.701 ; Tremor, hereditary, benign G25.0 ; Irritable bowel K58.9 ; Essential hypertension I10 ; Seizure R56.9 and Tinea capitis B35.0 [place] [id number] [place] [address] 17 May, 2015 Low back pain M54.5 ; Hypokalemia E87.6 ; Chronic migraine without aura with status migrainosus, not intractable G43.701 ; Tremor, hereditary, benign G25.0 ; Irritable bowel K58.9 ; Essential hypertension I10 ; Seizure R56.9 ; Otitis media, left H66.92 and Dysuria 788.1 [facility] [id number] [place] [address] 14 May, 2015 Tooth pain K08.8 [place] [id number] [place] [address] May, [place] [id number] [place] [address] May, Low back pain M54.5 ; Hypokalemia E87.6 ; Chronic migraine without aura with status migrainosus, not intractable G43.701 ; Tremor, hereditary, benign G25.0 ; Irritable bowel K58.9 and Essential hypertension I10 [place] [address] [address] 18 Apr, 2015 Low back pain M54.5 ; Hypokalemia E87.6 ; Chronic migraine without aura with status migrainosus, not intractable G43.701 ; Tremor, hereditary, benign G25.0 and Irritable bowel K58.9 [place] [id number] [place] [address] Apr, Low back pain M54.5 [place] [id number] [place] [address] 28 Mar, 2015 [place] [id number] [place] [address] Mar, Irritable bowel syndrome with diarrhea K58.0 [place] [id number] [place] [address] Mar, [facility] [id number] [place] [address] Feb, [facility] [id number] [place] [address] 08 Feb, 2015 [facility] [id number] [place] [address] Feb, Irritable bowel syndrome 564.1 ; Lumbago 724.2 and Cervical pain (neck) 723.1 [facility] [id number] [address] Dec, Major depressive disorder, recurrent episode, moderate 296.32 and Generalized anxiety disorder 300.02 [facility] [id number] [place] [address] Nov, [facility] [id number] [place] [address] Nov, Major depressive disorder, recurrent episode, moderate 296.32 [facility] [id number] [place] [address] Nov, Constipation 564.00 ; Nausea & vomiting 787.01 and Abdominal pain 789.00 [facility] [id number] [place] [address] Nov, [facility] [id number] [place] [address] October, [facility] [id number] [place] [address] October, [facility] [id number] [place] [address] October, [facility] [id number] [address] October, [facility] [id number] [place] [address] Sep, Dysuria 788.1 [facility] [id number] [address] Sep, [facility] [id number] [place] [address] Sep, [facility] [id number] [address] Sep, [facility] [address] [place] [address] 13 Sep, 2014 [facility] [place] [facility] [address] [id number] [place] [address] 30 Aug, 2014 [facility] [place] [facility] [address] [id number] [place] [address] Aug, [facility] [place] [facility] [address] [id number] [place] [address] Aug, [facility] [place] [facility] [address] [id number] [place] [address] Aug, [facility] [place] [facility] [address] [id number] [place] [address] Aug, [facility] [place] [facility] [address] [id number] [place] [address] Aug, [facility] [place] [facility] [address] [id number] [place] [address] Aug, [facility] [place] [facility] [address] [id number] [place] [address] Aug, [facility] [place] [facility] [address] [id number] [place] [address] Aug, [facility] [place] [facility] [address] [id number] [place] [address] Aug, [facility] [place] [facility] [address] [id number] [place] [address] Jun, [facility] [place] [facility] [address] [id number] [place] [address] Jun, [facility] [place] [facility] [address] [id number] [place] [address] Jun, [facility] [place] [facility] [address] [id number] [place] [address] Jun, [facility] [place] [facility] [address] [id number] [place] [address] May, [facility] [place] [facility] [address] [id number] [place] [address] May, [facility] [place] [facility] [address] [id number] [place] [address] May, [facility] [place] [facility] [address] [id number] [place] [address] May, [facility] [place] [facility] [address] [id number] [place] [address] May, [facility] [place] [facility] [address] [id number] [place] [address] May, [facility] [place] [facility] [address] [id number] [place] [address] May, [facility] [place] [facility] [address] [id number] [place] [address] May, [facility] [place] [facility] [address] [id number] [place] [address] Mar, [facility] [place] [facility] [address] [id number] [place] [address] Mar, [facility] [place] [facility] [address] [id number] [place] [address] Mar, [facility] [place] [facility] [address] [id number] [place] [address] Mar, [facility] [place] [facility] [address] [id number] [place] [address] Mar, [facility] [place] [facility] [address] [id number] [place] [address] Mar, [facility] [place] [facility] [address] [id number] [place] [address] Mar, [facility] [place] [facility] [address] [id number] [place] [address] Mar, [facility] [place] [facility] [address] [id number] [place] [address] Mar, [facility] [place] [facility] [address] [id number] [place] [address] Mar, [facility] [place] [facility] [address] [id number] [place] [address] Mar, [facility] [place] [facility] [address] [id number] [place] [address] Mar, [facility] [place] [facility] [address] [id number] [place] [address] Feb, [facility] [place] [facility] [address] [id number] [place] [address] Feb, [facility] [place] [facility] [address] [id number] [place] [address] Feb, [facility] [place] [facility] [address] [id number] [place] [address] Feb, [facility] [place] [facility] [address] [id number] [place] [address] Feb, [facility] [place] [facility] [address] [id number] [place] [address] Feb, [facility] [place] [facility] [address] [id number] [place] [address] Jan, [facility] [place] [facility] [address] [id number] [place] [address] Jan, [facility] [place] [facility] [address] [id number] [place] [address] Jan, [facility] [place] [facility] [address] [id number] [place] [address] Jan, [facility] [place] [facility] [address] [id number] [place] [address] Jan, [facility] [place] [facility] [address] [id number] [place] [address] Jan, [facility] [place] [facility] [address] [id number] [place] [address] Jan, [facility] [place] [facility] [address] [id number] [place] [address] Jan, [facility] [place] [facility] [address] [id number] [place] [address] Dec, [facility] [place] [facility] [address] [id number] [place] [address] Dec, [facility] [place] [facility] [address] [id number] [place] [address] Dec, [facility] [place] [facility] [address] [id number] [place] [address] Dec, [facility] [place] [facility] [address] [id number] [place] [address] Dec, [facility] [place] [facility] [address] [id number] [place] [address] Dec, [facility] [place] [facility] [address] [id number] [place] [address] Dec, [facility] [place] [facility] [address] [id number] [place] [address] Dec, [facility] [place] [facility] [address] [id number] [place] [address] October, [facility] [place] [facility] [address] [id number] [place] [address] October, [facility] [place] [facility] [address] [id number] [place] [address] Sep, [facility] [place] [facility] [address] [id number] [place] [address] Sep, [facility] [place] [facility] [address] [id number] [place] [address] Sep, [facility] [place] [facility] [address] [id number] [place] [address] Sep, [facility] [place] [facility] [address] [id number] [place] [address] Sep, [facility] [place] [facility] [address] [id number] [place] [address] Sep, [facility] [place] [facility] [address] [id number] [place] [address] Sep, [facility] [place] [facility] [address] [id number] [place] [address] Sep, [facility] [place] [facility] [address] [id number] [place] [address] Sep, [facility] [place] [facility] [address] [id number] [place] [address] Sep, [facility] [place] [facility] [address] [id number] [place] [address] Sep, [facility] [place] [facility] [address] [id number] [place] [address] Sep, [facility] [place] [facility] [address] [id number] [place] [address] Aug, [facility] [place] [facility] [address] [id number] [place] [address] Aug, [facility] [place] [facility] [address] [id number] [place] [address] Aug, [facility] [place] [facility] [address] [id number] [place] [address] Jun, [facility] [place] [facility] [address] [id number] [place] [address] Jun, [facility] [place] [facility] [address] [id number] [place] [address] Jun, [facility] [place] [facility] [address] [id number] [place] [address] Jun, [facility] [place] [facility] [address] [id number] [place] [address] Jun, [facility] [address] [id number] [place] [address] Jun, [facility] [place] [facility] [address] [id number] [place] [address] Jun, [facility] [place] [facility] [address] [facility] [id number] [place] [address] Jun, [facility] [place] [facility] [address] [id number] [place] [address] Jun, [facility] [address] [id number] [place] [address] Jun, [facility] [place] [facility] [address] [id number] [place] [address] May, [facility] [address] [facility] [id number] [place] [address] May, [facility] [place] [facility] [address] [id number] [place] [address] May, [facility] [address] [facility] [id number] [place] [address] May, [facility] [place] [facility] [address] [facility] [id number] [place] [address] Apr, [facility] [address] [id number] [place] [address] Apr, [facility] [place] [facility] [address] [id number] [place] [address] Apr, [facility] [place] [facility] [address] [id number] [place] [address] Apr, [facility] [place] [facility] [address] [facility] [id number] [place] [address] Apr, [facility] [place] [facility] [address] [facility] [id number] [place] [address] Apr, [facility] [place] [facility] [address] [id number] [place] [address] Apr, [facility] [place] [facility] [address] [id number] [place] [address] Apr, [facility] [place] [facility] [address] [id number] [place] [address] Mar, [facility] [place] [facility] [address] [id number] [place] [address] Mar, [facility] [place] [facility] [address] [id number] [place] [address] Mar, [facility] [place] [facility] [address] [id number] [place] [address] Mar, [facility] [place] [facility] [address] [id number] [place] [address] Mar, [facility] [place] [facility] [address] [id number] [place] [address] Feb, [facility] [place] [facility] [address] [id number] [place] [address] Feb, [facility] [place] [facility] [address] [id number] [place] [address] Feb, [facility] [place] [facility] [address] [id number] [place] [address] Feb, [facility] [place] [facility] [address] [id number] [place] [address] Feb, [facility] [place] [facility] [address] [id number] [place] [address] Jan, [facility] [place] [facility] [address] [id number] [place] [address] Jan, [facility] [place] [facility] [address] [id number] [place] [address] Nov, [facility] [place] [facility] [address] [id number] [place] [address] Nov, [facility] [address] [id number] [place] [address] Nov, [facility] [address] [id number] [place] [address] Nov, [facility] [address] [facility] [id number] [place] [address] October, [facility] [address] [id number] [place] [address] Sep, [facility] [address] [id number] [place] [address] Aug, [facility] [address] [id number] [place] [address] Aug, [facility] [address] [id number] [place] [address] Aug, [facility] [address] [id number] [place] [address] Aug, [facility] [address] [id number] [place] [address] Jul, [facility] [address] [id number] [place] [address] Jun, [facility] [address] [id number] [place] [address] Jun, [facility] [place] [facility] [address] [id number] [place] [address] May, [facility] [place] [facility] [address] [id number] [place] [address] May, [facility] [place] [facility] [address] [id number] [place] [id number] Mar, [facility] [place] [facility] [address] [facility] [id number] [place] [address] Mar, [facility] [place] [facility] [address] [id number] [place] [address] 24 Mar, 2011 [facility] [place] [facility] [address] [id number] [place] [address] 24 Mar, 2011 [facility] [place] [facility] [address] [id number] [place] [address] Mar, 2011 [facility] [place] [facility] [address] [id number] [place] [address] Mar, 2011 [facility] [place] [facility] [address] [id number] [place] [address] Mar, [facility] [place] [facility] [address] [id number] [place] [address] Mar, [facility] [place] [facility] [address] [id number] [place] [address] Mar, [facility] [place] [facility] [address] [id number] [place] [address] Mar, [facility] [place] [facility] [address] [id number] [place] [address] 20 Mar, 2012 [facility] [place] [facility] [address] [id number] [place] [address] 17 Mar, 2012 [facility] [place] [facility] [address] [id number] [place] [address] 17 Mar, 2012 [facility] [place] [facility] [address] [id number] [place] [address] 15 Mar, 2012 [facility] [place] [facility] [address] [id number] [place] [address] 15 Mar, 2012 [facility] [place] [facility] [address] [id number] [place] [address] 15 Mar, 2012 [facility] [place] [facility] [address] [id number] [place] [address] 15 Mar, 2012 [facility] [place] [facility] [address] [id number] [place] [address] 11 Mar, 2012 [facility] [place] [facility] [address] [id number] [place] [address] Mar, [facility] [place] [facility] [address] [id number] [place] [address] Mar, [facility] [place] [facility] [address] [id number] [place] [address] 08 Mar, 2012 [facility] [place] [facility] [address] [id number] [place] [address] Mar, [facility] [place] [facility] [address] [id number] [place] [address] Mar, [facility] [place] [facility] [address] [id number] [place] [address] 19 Feb, 2012 [facility] [place] [facility] [address] [id number] [place] [address] 18 Feb, 2012 [facility] [place] [facility] [address] [id number] [place] [address] 17 Feb, 2012 [facility] [place] [facility] [address] [id number] [place] [address] 14 Feb, 2012 [facility] [place] [facility] [address] [id number] [place] [address] 14 Feb, 2012 [facility] [place] [facility] [address] [id number] [place] [address] 12 Feb, 2012 [facility] [place] [facility] [address] [id number] [place] [address] 10 Feb, 2012 [facility] [place] [facility] [address] [id number] [place] [address] 31 Jan, 2012 [facility] [place] [facility] [address] [id number] [place] [address] 30 Jan, 2012 [facility] [place] [facility] [address] [id number] [place] [address] 22 Jan, 2012 [facility] [place] [facility] [address] [id number] [place] [address] Jan, [facility] [place] [facility] [address] [id number] [place] [address] Jan, [facility] [place] [facility] [address] [id number] [place] [address] Jan, [facility] [place] [facility] [address] [id number] [place] [address] Jan, [facility] [place] [facility] [address] [id number] [place] [address] Jan, [facility] [place] [facility] [address] [id number] [place] [address] Jan, [facility] [place] [facility] [address] [id number] [place] [address] Jan, [facility] [place] [facility] [address] [id number] [place] [address] Dec, [facility] [place] [facility] [address] [id number] [place] [address] Dec, [facility] [place] [facility] [address] [id number] [place] [address] Dec, [facility] [place] [facility] [address] [id number] [place] [address] Dec, [facility] [place] [facility] [address] [id number] [place] [address] 18 Dec, 2011 [facility] [place] [facility] [address] [id number] [place] [address] Dec, [facility] [place] [facility] [address] [id number] [place] [address] 16 Dec, 2011 [facility] [place] [facility] [address] [id number] [place] [address] 14 Dec, 2011 [facility] [place] [facility] [address] [id number] [place] [address] Dec, [facility] [place] [facility] [id number] [address] Dec, [facility] [id number] [place] [address] Dec, [facility] [id number] [address] Nov, [facility] [id number] [place] [address] Nov, [facility] [id number] [place] [address] Nov, [facility] [id number] [place] [address] Nov, [facility] [id number] [place] [address] Nov, [facility] [id number] [place] [address] Nov, [facility] [id number] [place] [address] Nov, [facility] [id number] [place] [address] Nov, [facility] [id number] [address] Nov, [facility] [id number] [address] Nov, [facility] [id number] [address] October, IMMUNIZATIONS No Known Immunizations SOCIAL HISTORY Never Assessed REASON FOR VISIT EMR-[facility] PLAN OF CARE VITAL SIGNS MEDICATIONS No [...]
[2018-11-18] MEDS ORDERED: LACTATED RINGERS 1,000 ML IV ONE ×2 (20:33→21:59)
[2018-11-18 20:41] LABS: BASOPHILS % (AUTO) 0 % (0-10); EOSINOPHILS % (AUTO) 0 % (0-10); HEMATOCRIT 40 % (35-52); HEMOGLOBIN 13.1 G/DL (11.5-16.0); LYMPHOCYTES # (AUTO) 1.3 X 10^3 (1.0-4.0); LYMPHOCYTES % (AUTO) 12 % (12-44); MEAN CORPUSCULAR HEMOGLOBIN 28 PG (25-34); MEAN CORPUSCULAR HGB CONC 32 G/DL (32-36); MEAN CORPUSCULAR VOLUME 87 FL (80-99); MEAN PLATELET VOLUME 9.2 FL (7.4-10.4); MONOCYTES # (AUTO) 0.7 X 10^3 (0.0-1.0); MONOCYTES % (AUTO) 7 % (0-12); NEUTROPHILS # (AUTO) 8.9 X 10^3 (1.8-7.8); NEUTROPHILS % (AUTO) 81 % (42-75); PLATELET COUNT 378 10^3/uL (130-400); RED CELL DISTRIBUTION WIDTH 14.9 % (10.0-14.5); WHITE BLOOD COUNT 10.9 10^3/uL (4.3-11.0)
[2018-11-18] MEDS ORDERED: HYOSCYAMINE 0.125 MG (LEVSIN) TAB SL ONE (20:45)
[2018-11-18] MEDS ORDERED: ONDANSETRON 4 MG/2 ML (SDV) Z0FRAN IVP ONE (20:45)
--- OUTSIDE RECORDS SUMMARY | 2018-11-18 20:45 | XMS REPORT ---
Author Author Migration, Doctor Organization [facility] Address Unknown Phone Unavailable Care Team Providers Care [employer] Advisor Name Role Phone Migration, Doctor Unavailable Unavailable PROBLEMS Type Condition ICD9-CM Code IPY52-SH Code Onset Dates Condition Status SNOMED Code Problem Elevated liver enzymes R74.8 Active 805804948 Problem Abnormal glucose R73.09 Active 466772864 Problem Hyperlipidemia LDL goal <100 E78.5 Active 91767657 Problem Hypokalemia E87.6 Active 62982091 Problem Major depressive disorder, recurrent episode, moderate F33.1 Active 589030435 Problem Tremor, hereditary, benign G25.0 Active 610357052 Problem Chronic migraine without aura with status migrainosus, not intractable G43.701 Active 779444761 Problem 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 Active 65896596 Problem Other chronic pain G89.29 Active 86367713 Problem Seizure disorder G40.909 Active 936485777 Problem Other chronic pain G89.29 Active 76634513 Problem Essential hypertension I10 Active 53232180 Problem Reflux gastritis K29.60 Active 11925195 Problem Irritable bowel K58.9 Active 04112416 Problem Primary insomnia F51.01 Active 6416675 Problem Moderate persistent asthma without complication J45.40 Active 619257408 Problem Moderate persistent asthma with exacerbation J45.41 Active 006026035 Problem Intractable chronic migraine without aura and with status migrainosus G43.711 Active 811456832 ALLERGIES No Information ENCOUNTERS Encounter Location Date Diagnosis [facility] [address] [place] [address] Sep, Chronic nausea R11.0 [facility] [address], [place] [address] Sep, [facility] [id number], [place] [address] Sep, Viral gastroenteritis A08.4 [facility] [id number] [place] [address] Aug, Headache R51 ; Viral upper respiratory tract infection J06.9 and Nausea R11.0 [facility] [id number] [place] [address] Jun, Reflux gastritis K29.60 [facility] [id number] [place] [address] Jun, [facility] [id number] [place] [address] May, [facility] [id number] [place] [address] May, [facility] [id number] [place] [address] Apr, Bowel habit changes R19.4 and Acute cystitis without hematuria N30.00 [facility] [id number] [place] [address] Apr, Pain in right shoulder M25.511 [facility] [id number] [place] [address] Apr, [facility] [id number] [place] [address] Mar, [facility] [id number] [place] [address] Mar, [facility] [id number] [place] [address] Mar, [facility] [id number] [place] [address] Mar, [facility] [id number] [place] [address] 14 Feb, 2018 [facility] [id number] [place] [address] 10 Feb, 2018 [facility] [id number] [place] [address] Feb, [facility] [address], [place] [address] Jan, [facility] [id number] [place] [address] Dec, [facility] [id number] [place] [address] Dec, Other chronic pain G89.29 ; Pain in right shoulder M25.511 and Liver enzyme elevation R74.8 [facility] [id number] [place] [address] Nov, Other chronic pain G89.29 and Pain in right shoulder M25.511 [facility] [id number] [place] [address] October, [facility] [id number] [place] [address] October, Right shoulder pain, unspecified chronicity M25.511 [facility] [id number] [place] [address] Aug, Elevated liver enzymes R74.8 and Hyperlipidemia LDL goal <100 E78.5 [address] [id number] [place] [address] Aug, [place] [id number] [place] [address] Jul, [facility] [id number] [place] [address] Jul, Intractable chronic migraine without aura and with status migrainosus G43.711 ; Fever, unspecified fever cause R50.9 and Elevated liver enzymes R74.8 [facility] [address], [place] [address] Jun, Difficulty urinating R39.198 and Moderate persistent asthma with exacerbation J45.41 [facility] [id number] [place] [address] Jun, [facility] [address] [address] Jun, Moderate persistent asthma with exacerbation J45.41 [place] [id number] [place] [address] May, Elevated liver enzymes R74.8 and Hyperlipidemia LDL goal <100 E78.5 [place] [address] [address] May, Elevated lipids E78.5 [place] [address] [address] Apr, Elevated liver enzymes R74.8 [place] [address] [address] Apr, Elevated liver enzymes R74.8 [place] [address] [address] Apr, Superior glenoid labrum lesion of right shoulder, subsequent encounter S43.431D [address] [address] Apr, Hypokalemia E87.6 ; Major depressive disorder, recurrent episode, moderate F33.1 ; Other abnormalities of breathing R06.89 and Dyspnea, unspecified R06.00 [facility] [id number] [place] [address] Mar, Moderate persistent asthma without complication J45.40 [place] [id number] [place] [address] Mar, Impingement syndrome of right shoulder M75.41 [facility] [id number] [place] [address] Jan, [place] [id number] [place] [address] 03 Aug, 2017 Chronic migraine without aura with status migrainosus, not intractable G43.701 ; Essential hypertension I10 ; Irritable bowel K58.9 ; Primary insomnia F51.01 and Hypokalemia E87.6 [facility] [id number] [place] [address] Dec, [facility] [id number] [place] [address] Dec, Pain in right shoulder M25.511 [facility] [id number] [place] [address] Dec, [facility] [id number] [place] [address] Dec, Essential hypertension I10 [facility] [id number] [place] [address] Nov, Essential hypertension I10 [facility] [id number] [place] [address] Nov, Pain in right shoulder M25.511 [facility] [id number] [place] [address] Nov, Pain in right shoulder M25.511 [facility] [id number] [place] [address] October, [facility] [id number] [place] [address] October, Pain in right shoulder M25.511 [facility] [id number] [place] [address] Sep, Arm pain, right M79.601 [facility] [id number] [place] [address] Sep, [facility] [id number] [place] [address] Sep, Abnormal glucose R73.09 and Elevated lipids E78.5 [facility] [id number] [place] [address] Sep, Abnormal glucose R73.09 and Elevated lipids E78.5 [place] [id number] [place] [address] Aug, [place] [id number] [place] [address] Aug, [place] [address] [address] Aug, [place] [id number] [place] [address] Aug, 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 ; Hypokalemia E87.6 ; Irritable bowel K58.9 ; Essential hypertension I10 ; Pain in right shoulder M25.511 ; Seizure disorder G40.909 and Screening for lipid disorders Z13.220 [address] [address] [address] 28 Jul, 2016 Other chronic pain G89.29 and Pain in right shoulder M25.511 [place] [id number] [place] [address] 14 Jul, 2016 Biceps muscle strain, right, subsequent encounter S46.111D [facility] [id number] [place] [address] Jul, Arm pain, right M79.601 [place] [id number] [place] [address] Jun, [place] [id number] [place] [address] Jun, Acute non-recurrent frontal sinusitis J01.10 [place] [id number] [place] [address] 14 May, 2016 Generalized abdominal pain R10.84 ; Urinary tract infection without hematuria, site unspecified N39.0 ; Hypokalemia E87.6 ; Essential hypertension I10 ; Screening for lipid disorders Z13.220 ; Seizure R56.9 and Low back pain M54.5 [place] [id number] [place] [address] Apr, [facility] [id number] [place] [address] Feb, [address] [address] [address] Jan, [place] [address] [address] Dec, 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 ; Hypokalemia E87.6 ; Irritable bowel K58.9 and Nausea R11.0 [facility] [id number] [place] [address] Dec, Generalized abdominal pain R10.84 [address] [address] [address] Nov, [facility] [id number] [place] [address] Aug, Acute bronchitis J20.9 [address] [id number] [place] [address] Aug, [place] [id number] [place] [address] 08 Aug, 2015 Low back pain M54.5 ; Hypokalemia E87.6 ; Chronic migraine without aura with status migrainosus, not intractable G43.701 ; Tremor, hereditary, benign G25.0 ; Irritable bowel K58.9 ; Essential hypertension I10 and Seizure R56.9 [address] [place] [address] [address] 07 Aug, 2015 [place] [address] [address] Jul, [place] [place] [place] [address] 03 Jul, 2015 Low back pain M54.5 ; Hypokalemia E87.6 ; Chronic migraine without aura with status migrainosus, not intractable G43.701 ; Tremor, hereditary, benign G25.0 ; Irritable bowel K58.9 ; Essential hypertension I10 and Seizure R56.9 [place] [id number] [place] [address] Jun, Hypokalemia E87.6 [address] [place] [address] [address] 15 Jun, 2015 ADD (attention deficit disorder) without hyperactivity F90.0 ; Generalized anxiety disorder F41.1 and Major depressive disorder, recurrent episode, moderate F33.1 [place] [id number] [place] [address] Jun, Low back pain M54.5 ; Hypokalemia E87.6 ; Chronic migraine without aura with status migrainosus, not intractable G43.701 ; Tremor, hereditary, benign G25.0 ; Irritable bowel K58.9 ; Essential hypertension I10 and Seizure R56.9 [address] [id number] [place] [address] Jun, [place] [id number] [place] [address] May, [place] [id number] [place] [address] May, Low back pain M54.5 ; Hypokalemia E87.6 ; Chronic migraine without aura with status migrainosus, not intractable G43.701 ; Tremor, hereditary, benign G25.0 ; Irritable bowel K58.9 ; Essential hypertension I10 ; Seizure R56.9 and Tinea capitis B35.0 [place] [id number] [place] [address] May, Low back pain M54.5 ; Hypokalemia E87.6 ; Chronic migraine without aura with status migrainosus, not intractable G43.701 ; Tremor, hereditary, benign G25.0 ; Irritable bowel K58.9 ; Essential hypertension I10 ; Seizure R56.9 ; Otitis media, left H66.92 and Dysuria 788.1 [address] [id number] [place] [address] 14 May, 2015 Tooth pain K08.8 [address] [address] [address] May, [place] [address] [address] May, Low back pain M54.5 ; Hypokalemia E87.6 ; Chronic migraine without aura with status migrainosus, not intractable G43.701 ; Tremor, hereditary, benign G25.0 ; Irritable bowel K58.9 and Essential hypertension I10 [address] [place] [address] [address] Apr, Low back pain M54.5 ; Hypokalemia E87.6 ; Chronic migraine without aura with status migrainosus, not intractable G43.701 ; Tremor, hereditary, benign G25.0 and Irritable bowel K58.9 [place] [id number] [place] [address] Apr, Low back pain M54.5 [place] [id number] [place] [address] Mar, [place] [address] [address] Mar, Irritable bowel syndrome with diarrhea K58.0 [place] [address] [address] Mar, [place] [id number] [place] [address] Feb, [place] [id number] [place] [address] 08 Feb, 2015 [facility] [id number] [place] [address] Feb, Irritable bowel syndrome 564.1 ; Lumbago 724.2 and Cervical pain (neck) 723.1 [facility] [id number] [place] [address] Dec, Major depressive disorder, recurrent episode, moderate 296.32 and Generalized anxiety disorder 300.02 [facility] [id number] [place] [address] Nov, [facility] [address] [address] Nov, Major depressive disorder, recurrent episode, moderate 296.32 [facility] [id number] [place] [address] Nov, Constipation 564.00 ; Nausea & vomiting 787.01 and Abdominal pain 789.00 [facility] [id number] [place] [address] Nov, [facility] [id number] [place] [address] October, [facility] [id number] [place] [address] October, [facility] [id number] [place] [address] October, [facility] [id number] [place] [address] October, [facility] [id number] [place] [address] Sep, [facility] [id number] [place] [address] Sep, Dysuria 788.1 [facility] [address] [place] [address] 30 Sep, 2014 [facility] [place] [facility] [address] [id number] [place] [address] 14 Sep, 2014 [facility] [place] [facility] [address] [id number] [place] [address] 13 Sep, 2014 [facility] [place] [facility] [address] [id number] [place] [address] 30 Aug, 2014 [facility] [place] [facility] [address] [id number] [place] [address] 30 Aug, 2014 [facility] [place] [facility] [address] [id number] [place] [address] Aug, [facility] [place] [facility] [address] [id number] [place] [address] Aug, [facility] [place] [facility] [address] [id number] [place] [address] Aug, [facility] [place] [facility] [address] [id number] [place] [address] Aug, [facility] [place] [facility] [address] [id number] [place] [address] Aug, [facility] [place] [facility] [address] [id number] [place] [address] Aug, [facility] [place] [facility] [address] [id number] [place] [address] Aug, [facility] [place] [facility] [address] [id number] [place] [address] Aug, [facility] [place] [facility] [address] [id number] [place] [address] Jun, [facility] [place] [facility] [address] [id number] [place] [address] Jun, [facility] [place] [facility] [address] [id number] [place] [address] Jun, [facility] [place] [facility] [address] [id number] [place] [address] Jun, [facility] [place] [facility] [address] [id number] [place] [address] May, [facility] [place] [facility] [address] [id number] [place] [address] May, [facility] [place] [facility] [address] [id number] [place] [address] May, [facility] [place] [facility] [address] [id number] [place] [address] May, [facility] [place] [facility] [address] [id number] [place] [address] May, [facility] [place] [facility] [address] [id number] [place] [address] May, [facility] [place] [facility] [address] [id number] [place] [address] May, [facility] [place] [facility] [address] [id number] [place] [address] May, [facility] [place] [facility] [address] [id number] [place] [address] Mar, [facility] [place] [facility] [address] [id number] [place] [address] Mar, [facility] [place] [facility] [address] [id number] [place] [address] Mar, [facility] [place] [facility] [address] [id number] [place] [address] Mar, [facility] [place] [facility] [address] [id number] [place] [address] Mar, [facility] [place] [facility] [address] [id number] [place] [address] Mar, [facility] [place] [facility] [address] [id number] [place] [address] 14 Mar, 2014 [facility] [place] [facility] [address] [id number] [place] [address] 14 Mar, 2014 [facility] [place] [facility] [address] [id number] [place] [address] Mar, [facility] [place] [facility] [address] [id number] [place] [address] Mar, [facility] [place] [facility] [address] [id number] [place] [address] Mar, [facility] [place] [facility] [address] [id number] [place] [address] Mar, [facility] [place] [facility] [address] [id number] [place] [address] 24 Feb, 2014 [facility] [place] [facility] [address] [id number] [place] [address] 24 Feb, 2014 [facility] [place] [facility] [address] [id number] [place] [address] Feb, [facility] [place] [facility] [address] [id number] [place] [address] Feb, [facility] [place] [facility] [address] [id number] [place] [address] Feb, [facility] [place] [facility] [address] [id number] [place] [address] Feb, [facility] [place] [facility] [address] [id number], [place] [address] Jan, [facility] [place] [facility] [address] [id number] [place] [address] Jan, [facility] [place] [facility] [address] [id number] [place] [address] Jan, [facility] [place] [facility] [address] [id number] [place] [address] Jan, [facility] [place] [facility] [address] [id number] [place] [address] Jan, [facility] [place] [facility] [address] [id number] [place] [address] Jan, [facility] [place] [facility] [address] [id number] [place] [address] Jan, [facility] [place] [facility] [address] [id number] [place] [address] Jan, [facility] [place] [facility] [address] [id number] [place] [address] Dec, [facility] [place] [facility] [address] [id number] [place] [address] Dec, [facility] [place] [facility] [address] [id number] [place] [address] Dec, [facility] [place] [facility] [address] [id number] [place] [address] Dec, [facility] [place] [facility] [address] [id number] [place] [address] Dec, [facility] [place] [facility] [address] [id number] [place] [address] Dec, [facility] [place] [facility] [address] [id number] [place] [address] Dec, [facility] [place] [facility] [address] [id number] [place] [address] Dec, [facility] [place] [facility] [address] [id number] [place] [address] October, [facility] [place] [facility] [address] [id number] [place] [address] October, [facility] [place] [facility] [address] [id number] [place] [address] Sep, [facility] [place] [facility] [address] [id number] [place] [address] Sep, [facility] [place] [facility] [address] [id number] [place] [address] Sep, [facility] [place] [facility] [address] [id number] [place] [address] Sep, [facility] [place] [facility] [address] [id number] [place] [address] Sep, [facility] [place] [facility] [address] [id number] [place] [address] Sep, [facility] [place] [facility] [address] [id number] [place] [address] Sep, [facility] [place] [facility] [address] [id number] [place] [address] Sep, [facility] [place] [facility] [address] [id number] [place] [address] Sep, [facility] [place] [facility] [address] [id number] [place] [address] Sep, [facility] [place] [facility] [address] [id number] [place] [address] Sep, [facility] [place] [facility] [address] [id number] [place] [address] Sep, [facility] [place] [facility] [address] [id number] [place] [address] Aug, [facility] [place] [facility] [address] [id number] [place] [address] Aug, [facility] [place] [facility] [address] [id number] [place] [address] Aug, [facility] [place] [facility] [address] [id number] [place] [address] Jun, [facility] [place] [facility] [address] [id number] [place] [address] Jun, [facility] [place] [facility] [address] [id number], [place] [address] Jun, [facility] [place] [facility] [address] [id number] [place] [address] Jun, [facility] [place] [facility] [address] [id number] [place] [address] Jun, [facility] [place] [facility] [address] [id number] [place] [address] Jun, [facility] [place] [facility] [address] [id number] [place] [address] Jun, [facility] [place] [facility] [address] [id number] [place] [address] Jun, [facility] [place] [facility] [address] [id number] [place] [address] Jun, [facility] [place] [facility] [address] [id number] [place] [address] Jun, [facility] [place] [facility] [address] [id number] [place] [address] May, [facility] [place] [facility] [address] [id number] [place] [address] May, [facility] [place] [facility] [address] [id number] [place] [address] May, [facility] [place] [facility] [address] [id number] [place] [address] May, [facility] [place] [facility] [address] [id number] [place] [address] Apr, [facility] [place] [facility] [address] [id number] [place] [address] Apr, [facility] [place] [facility] [address] [id number] [place] [address] Apr, [facility] [place] [facility] [address] [id number] [place] [address] Apr, [facility] [place] [facility] [address] [id number] [place] [address] Apr, [facility] [place] [facility] [address] [id number] [place] [address] Apr, [facility] [place] [facility] [address] [id number] [place] [address] Apr, [facility] [place] [facility] [address] [id number] [place] [address] Apr, [facility] [place] [facility] [address] [id number] [place] [address] Mar, [facility] [place] [facility] [address] [id number] [place] [address] Mar, [facility] [place] [facility] [address] [id number] [place] [address] Mar, [facility] [place] [facility] [address] [id number] [place] [address] Mar, [facility] [place] [facility] [address] [id number] [place] [address] Mar, [facility] [place] [facility] [address] [id number] [place] [address] Feb, [facility] [place] [facility] [address] [id number] [place] [address] Feb, [facility] [place] [facility] [address] [id number] [place] [address] Feb, [facility] [place] [facility] [address] [id number] [place] [address] Feb, [facility] [place] [facility] [address] [id number] [place] [address] Feb, [facility] [place] [facility] [address] [id number] [place] [address] Jan, [facility] [place] [facility] [address] [id number] [place] [address] Jan, [facility] [address] [id number] [place] [address] Nov, [facility] [place] [facility] [address] [id number] [place] [address] Nov, [facility] [address] [id number] [place] [address] Nov, [facility] [place] [facility] [address] [id number] [place] [address] Nov, [facility] [address] [id number] [place] [address] October, [facility] [place] [facility] [address] [id number] [place] [address] Sep, [facility] [address] [id number] [place] [address] Aug, [facility] [place] [facility] [address] [id number] [place] [address] Aug, [facility] [address] [id number] [place] [address] Aug, [facility] [place] [facility] [address] [id number] [place] [address] Aug, [facility] [address] [id number] [place] [address] Jul, [facility] [place] [facility] [address] [id number], [place] [address] Jun, [facility] [place] [facility] [address] [id number] [place] [address] Jun, [facility] [place] [facility] [address] [id number] [place] [address] May, [facility] [place] [facility] [address] [id number] [place] [address] May, [facility] [place] [facility] [address] [id number] [id number] Mar, 2011 [facility] [place] [facility] [address] [id number] [place] [address] Mar, 2011 [facility] [place] [facility] [address] [id number], [place] [address] Mar, 2011 [facility] [place] [facility] [address] [id number] [place] [address] Mar, [facility] [place] [facility] [address] [id number] [place] [address] Mar, 2011 [facility] [place] [facility] [address] [id number] [place] [address] Mar, 2011 [facility] [place] [facility] [address] [id number] [place] [address] Mar, 2011 [facility] [place] [facility] [address] [id number], [place] [address] Mar, 2011 [facility] [place] [facility] [address] [id number], [place] [address] Mar, [facility] [place] [facility] [address] [id number] [place] [address] Mar, 2011 [facility] [place] [facility] [address] [facility] [id number], [place] [address] 20 Mar, 2011 [facility] [place] [facility] [address] [id number] [place] [address] 17 Mar, 2011 [facility] [place] [facility] [address] [id number], [place] [address] 17 Mar, 2011 [facility] [place] [facility] [address] [id number], [place] [address] 15 Mar, 2011 [facility] [place] [facility] [address] [facility] [id number], [place] [address] 15 Mar, 2011 [facility] [place] [facility] [address] [facility] [id number], [place] [address] 15 Mar, 2011 [facility] [place] [facility] [address] [id number] [place] [address] 15 Mar, 2012 [facility] [place] [facility] [address] [id number] [place] [address] 11 Mar, 2012 [facility] [place] [facility] [address] [id number] [place] [address] Mar, [facility] [place] [facility] [address] [id number] [place] [address] Mar, [facility] [place] [facility] [address] [id number] [place] [address] 08 Mar, 2012 [facility] [place] [facility] [address] [id number] [place] [address] 03 Mar, 2012 [facility] [place] [facility] [address] [id number] [place] [address] Mar, [facility] [place] [facility] [address] [id number] [place] [address] 19 Feb, 2012 [facility] [place] [facility] [address] [id number] [place] [address] 18 Sep, 2011 [facility] [place] [facility] [address] [id number] [place] [address] 17 Sep, 2011 [facility] [place] [facility] [address] [id number] [place] [address] 14 Sep, 2011 [facility] [place] [facility] [address] [id number] [place] [address] 14 Sep, 2011 [facility] [place] [facility] [address] [id number] [place] [address] 12 Sep, 2011 [facility] [place] [facility] [address] [id number] [place] [address] 10 Feb, 2011 [facility] [place] [facility] [address] [id number] [place] [address] 31 Jan, 2012 [facility] [place] [facility] [address] [id number] [place] [address] Jan, [facility] [place] [facility] [address] [id number] [place] [address] Jan, [facility] [place] [facility] [address] [id number] [place] [address] Jan, [facility] [place] [facility] [address] [id number] [place] [address] Jan, [facility] [place] [facility] [address] [id number] [place] [address] Jan, [facility] [place] [facility] [address] [id number] [place] [address] Jan, [facility] [place] [facility] [address] [id number] [place] [address] Jan, [facility] [place] [facility] [address] [id number] [place] [address] Jan, [facility] [place] [facility] [address] [id number] [place] [address] Jan, [facility] [place] [facility] [address] [id number] [place] [address] Dec, [facility] [place] [facility] [address] [id number] [place] [address] Dec, [facility] [place] [facility] [address] [id number] [place] [address] Dec, [facility] [place] [facility] [address] [id number] [place] [address] Dec, [facility] [place] [facility] [address] [id number] [place] [address] Dec, [facility] [place] [facility] [address] [id number] [place] [address] Dec, [facility] [place] [facility] [address] [id number] [place] [address] Dec, [facility] [place] [facility] [id number], [place] [address] 14 Dec, 2011 [facility] [id number], [place] [address] Dec, [facility] [id number], [place] [address] Dec, [facility] [id number], [place] [address] 06 Dec, 2011 [facility] [address] [id number], [place] [address] 29 Nov, 2011 [facility] [id number], [place] [address] 27 Nov, 2011 [facility] [id number], [place] [address] Nov, [facility] [id number], [place] [address] Nov, [facility] [id number], [place] [address] Nov, [facility] [id number], [place] [address] Nov, [facility] [id number], [place] [address] Nov, [facility] [id number], [place] [address] Nov, [facility] [address] [id number], [place] [address] Nov, [facility] [id number], [place] [address] 05 Nov, 2011 [facility] [id number], [place] [address] October, IMMUNIZATIONS No Known Immunizations SOCIAL HISTORY Never Assessed [place]ISIT [place] [place] VITAL SIGNS MEDICATIONS No [...] hysterectomy-total 2005 Surgical History lower GI Gianni Crane -not sure results Surgical History EGD Hospitalization [...]
--- OUTSIDE RECORDS SUMMARY | 2018-11-18 20:46 | XMS REPORT ---
Author Author Migration, Doctor Organization [facility] Address Unknown Phone Unavailable Care Team Providers [facility] Name Role Phone Migration, Doctor Unavailable Unavailable PROBLEMS Type Condition ICD9-CM Code QYE60-HO Code Onset Dates Condition Status SNOMED Code Problem Elevated liver enzymes R74.8 Active 700971248 Problem Abnormal glucose R73.09 Active 468480699 Problem Hyperlipidemia LDL goal <100 E78.5 Active 03670182 Problem Hypokalemia E87.6 Active 65029595 Problem Major depressive disorder, recurrent episode, moderate F33.1 Active 700972175 Problem Tremor, hereditary, benign G25.0 Active 135660833 Problem Chronic migraine without aura with status migrainosus, not intractable G43.701 Active 859620639 Problem 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 Active 22487958 Problem Other chronic pain G89.29 Active 67469546 Problem Seizure disorder G40.909 Active 941570025 Problem Other chronic pain G89.29 Active 84848172 Problem Essential hypertension I10 Active 02318523 Problem Reflux gastritis K29.60 Active 31412310 Problem Irritable bowel K58.9 Active 42213563 Problem Primary insomnia F51.01 Active 2888836 Problem Moderate persistent asthma without complication J45.40 Active 551786814 Problem Moderate persistent asthma with exacerbation J45.41 Active 075743853 Problem Intractable chronic migraine without aura and with status migrainosus G43.711 Active 679304889 ALLERGIES No Information ENCOUNTERS Encounter Location Date Diagnosis [facility] [address] [facility] [id number] [address] Sep, [facility] [address] [id number], [place] [address] Sep, Viral gastroenteritis A08.4 [facility] [address] [id number], [place] [address] Aug, Headache R51 ; Viral upper respiratory tract infection J06.9 and Nausea R11.0 [facility] [address] [id number], [place] [address] Jun, Reflux gastritis K29.60 [facility] [id number] [place] [address] Jun, [facility] [id number] [place] [address] May, [facility] [address] [address] May, [facility] [id number] [place] [address] Apr, Bowel habit changes R19.4 and Acute cystitis without hematuria N30.00 [facility] [id number] [place] [address] Apr, Pain in right shoulder M25.511 [facility] [address] [address] Apr, [facility] [id number] [place] [address] Mar, [facility] [id number] [place] [address] Mar, [facility] [id number] [place] [address] Mar, [facility] [id number] [place] [address] Mar, [facility] [id number] [place] [address] 14 Feb, 2018 [facility] [id number] [place] [address] 10 Feb, 2018 [facility] [id number] [place] [address] 05 Feb, 2018 [facility] [id number] [place] [address] Jan, [facility] [id number] [place] [address] Dec, [place] [address] [address] Dec, Other chronic pain G89.29 ; Pain in right shoulder M25.511 and Liver enzyme elevation R74.8 [place] [address] [address] Nov, Other chronic pain G89.29 and Pain in right shoulder M25.511 [place] [address] [address] October, [facility] [address] [address] October, Right shoulder pain, unspecified chronicity M25.511 [place] [address] [address] Aug, Elevated liver enzymes R74.8 and Hyperlipidemia LDL goal <100 E78.5 [place] [address] [address] Aug, [place] [id number] [place] [address] Jul, [place] [id number] [place] [address] Jul, Intractable chronic migraine without aura and with status migrainosus G43.711 ; Fever, unspecified fever cause R50.9 and Elevated liver enzymes R74.8 [place] [id number] [place] [address] Jun, Difficulty urinating R39.198 and Moderate persistent asthma with exacerbation J45.41 [place] [address] [address] Jun, [place] [id number] [place] [address] Jun, Moderate persistent asthma with exacerbation J45.41 [place] [address] [address] May, Elevated liver enzymes R74.8 and Hyperlipidemia LDL goal <100 E78.5 [place] [address] [address] May, Elevated lipids E78.5 [place] [address] [address] Apr, Elevated liver enzymes R74.8 [place] [address] [address] Apr, Elevated liver enzymes R74.8 [place] [id number] [place] [address] Apr, Superior glenoid labrum lesion of right shoulder, subsequent encounter S43.431D [place] [id number] [place] [address] Apr, Hypokalemia E87.6 ; Major depressive disorder, recurrent episode, moderate F33.1 ; Other abnormalities of breathing R06.89 and Dyspnea, unspecified R06.00 [facility] [id number] [place] [address] Mar, Moderate persistent asthma without complication J45.40 [place] [id number] [place] [address] Mar, Impingement syndrome of right shoulder M75.41 [place] [id number] [place] [address] Jan, [place] [id number] [place] [address] Jan, Chronic migraine without aura with status migrainosus, not intractable G43.701 ; Essential hypertension I10 ; Irritable bowel K58.9 ; Primary insomnia F51.01 and Hypokalemia E87.6 [facility] [id number] [place] [address] Dec, [facility] [id number] [place] [address] Dec, Pain in right shoulder M25.511 [facility] [id number] [place] [address] Dec, Essential hypertension I10 [facility] [id number] [place] [address] Dec, [facility] [id number] [place] [address] Nov, Essential hypertension I10 [facility] [id number] [place] [address] 14 Nov, 2016 Pain in right shoulder M25.511 [facility] [id number] [place] [address] Nov, Pain in right shoulder M25.511 [facility] [id number] [place] [address] October, [facility] [id number] [place] [address] October, Pain in right shoulder M25.511 [facility] [id number] [place] [address] Sep, Arm pain, right M79.601 [facility] [address] [id number] [address] Sep, [facility] [id number] [place] [address] Sep, Abnormal glucose R73.09 and Elevated lipids E78.5 [facility] [id number] [place] [address] Sep, Abnormal glucose R73.09 and Elevated lipids E78.5 [place] [id number] [place] [address] Aug, [place] [id number] [place] [address] Aug, [place] [id number] [place] [address] Aug, [place] [address] [address] Aug, 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 ; Hypokalemia E87.6 ; Irritable bowel K58.9 ; Essential hypertension I10 ; Pain in right shoulder M25.511 ; Seizure disorder G40.909 and Screening for lipid disorders Z13.220 [place] [id number] [place] [address] Jul, Other chronic pain G89.29 and Pain in right shoulder M25.511 [place] [id number] [place] [address] 14 Jul, 2016 Biceps muscle strain, right, subsequent encounter S46.111D [facility] [place] [id number] [place] [address] 08 Jul, 2016 Arm pain, right M79.601 [place] [id number] [place] [address] Jun, [place] [id number] [place] [address] Jun, Acute non-recurrent frontal sinusitis J01.10 [place] [id number] [place] [address] 14 May, 2016 Generalized abdominal pain R10.84 ; Urinary tract infection without hematuria, site unspecified N39.0 ; Hypokalemia E87.6 ; Essential hypertension I10 ; Screening for lipid disorders Z13.220 ; Seizure R56.9 and Low back pain M54.5 [place] [address] [place] [address] Apr, [facility] [id number] [place] [address] Feb, [facility] [id number] [place] [address] Jan, [facility] [id number] [place] [address] Dec, 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 ; Hypokalemia E87.6 ; Irritable bowel K58.9 and Nausea R11.0 [facility] [id number] [place] [address] Dec, Generalized abdominal pain R10.84 [place] [id number] [place] [address] Nov, [facility] [address] [address] Aug, Acute bronchitis J20.9 [place] [id number] [place] [address] Aug, [facility] [id number] [place] [address] Aug, Low back pain M54.5 ; Hypokalemia E87.6 ; Chronic migraine without aura with status migrainosus, not intractable G43.701 ; Tremor, hereditary, benign G25.0 ; Irritable bowel K58.9 ; Essential hypertension I10 and Seizure R56.9 [facility] [id number] [place] [address] Aug, [place] [address] [address] Jul, [facility] [id number] [place] [address] Jul, Low back pain M54.5 ; Hypokalemia E87.6 ; Chronic migraine without aura with status migrainosus, not intractable G43.701 ; Tremor, hereditary, benign G25.0 ; Irritable bowel K58.9 ; Essential hypertension I10 and Seizure R56.9 [place] [address] [address] 20 Jun, 2015 Hypokalemia E87.6 [place] [address] [address] 15 Jun, 2015 ADD (attention deficit disorder) without hyperactivity F90.0 ; Generalized anxiety disorder F41.1 and Major depressive disorder, recurrent episode, moderate F33.1 [place] [address] [address] 13 Jun, 2015 Low back pain M54.5 ; Hypokalemia E87.6 ; Chronic migraine without aura with status migrainosus, not intractable G43.701 ; Tremor, hereditary, benign G25.0 ; Irritable bowel K58.9 ; Essential hypertension I10 and Seizure R56.9 [place] [address] [address] Jun, [place] [address] [address] May, [place] [address] [address] 30 May, 2015 Low back pain M54.5 ; Hypokalemia E87.6 ; Chronic migraine without aura with status migrainosus, not intractable G43.701 ; Tremor, hereditary, benign G25.0 ; Irritable bowel K58.9 ; Essential hypertension I10 ; Seizure R56.9 and Tinea capitis B35.0 [place] [id number] [place] [address] 17 May, 2015 Low back pain M54.5 ; Hypokalemia E87.6 ; Chronic migraine without aura with status migrainosus, not intractable G43.701 ; Tremor, hereditary, benign G25.0 ; Irritable bowel K58.9 ; Essential hypertension I10 ; Seizure R56.9 ; Otitis media, left H66.92 and Dysuria 788.1 [place] [id number] [place] [address] May, Tooth pain K08.8 [place] [id number] [place] [address] May, [place] [address] [address] May, Low back pain M54.5 ; Hypokalemia E87.6 ; Chronic migraine without aura with status migrainosus, not intractable G43.701 ; Tremor, hereditary, benign G25.0 ; Irritable bowel K58.9 and Essential hypertension I10 [place] [id number] [place] [address] Apr, Low back pain M54.5 ; Hypokalemia E87.6 ; Chronic migraine without aura with status migrainosus, not intractable G43.701 ; Tremor, hereditary, benign G25.0 and Irritable bowel K58.9 [place] [id number] [place] [address] Apr, Low back pain M54.5 [place] [id number] [place] [address] Mar, [place] [address] [address] Mar, Irritable bowel syndrome with diarrhea K58.0 [place] [id number] [place] [address] Mar, [place] [id number] [place] [address] Feb, [facility] [id number] [place] [address] Feb, [place] [id number] [place] [address] Feb, Irritable bowel syndrome 564.1 ; Lumbago 724.2 and Cervical pain (neck) 723.1 [facility] [id number] [place] [address] Dec, Major depressive disorder, recurrent episode, moderate 296.32 and Generalized anxiety disorder 300.02 [facility] [id number] [place] [address] Nov, [facility] [id number] [place] [address] Nov, Major depressive disorder, recurrent episode, moderate 296.32 [facility] [id number] [place] [address] Nov, Constipation 564.00 ; Nausea & vomiting 787.01 and Abdominal pain 789.00 [facility] [id number] [place] [address] Nov, [facility] [id number] [place] [address] October, [facility] [id number] [place] [address] October, [facility] [id number] [place] [address] October, [facility] [id number] [place] [address] October, [facility] [id number] [place] [address] Sep, Dysuria 788.1 [facility] [id number] [place] [address] Sep, [facility] [id number] [place] [address] Sep, [facility] [address] [place] [address] 14 Sep, 2014 [facility] [place] [facility] [address] [id number] [place] [address] 13 Sep, 2014 [facility] [place] [facility] [address] [id number] [place] [address] 30 Aug, 2014 [facility] [place] [facility] [address] [id number] [place] [address] 30 Aug, 2014 [facility] [place] [facility] [address] [id number] [place] [address] Aug, [facility] [place] [facility] [address] [id number] [place] [address] Aug, [facility] [place] [facility] [address] [id number] [place] [address] Aug, [facility] [place] [facility] [address] [id number] [place] [address] Aug, [facility] [place] [facility] [address] [id number] [place] [address] Aug, [facility] [place] [facility] [address] [id number] [place] [address] Aug, [facility] [place] [facility] [address] [id number] [place] [address] Aug, [facility] [place] [facility] [address] [id number] [place] [address] Aug, [facility] [place] [facility] [address] [id number] [place] [address] Jun, [facility] [place] [facility] [address] [id number] [place] [address] Jun, [facility] [place] [facility] [address] [id number] [place] [address] Jun, [facility] [place] [facility] [address] [id number] [place] [address] Jun, [facility] [place] [facility] [address] [id number] [place] [address] May, [facility] [place] [facility] [address] [id number] [place] [address] May, [facility] [place] [facility] [address] [id number] [place] [address] May, [facility] [place] [facility] [address] [id number] [place] [address] May, [facility] [place] [facility] [address] [id number] [place] [address] May, [facility] [place] [facility] [address] [id number] [place] [address] May, [facility] [place] [facility] [address] [id number] [place] [address] May, [facility] [place] [facility] [address] [id number] [place] [address] May, [facility] [place] [facility] [address] [id number] [place] [address] Mar, [facility] [place] [facility] [address] [id number] [place] [address] Mar, [facility] [place] [facility] [address] [id number] [place] [address] Mar, [facility] [place] [facility] [address] [id number] [place] [address] Mar, [facility] [place] [facility] [address] [id number] [place] [address] Mar, [facility] [place] [facility] [address] [id number] [place] [address] Mar, [facility] [place] [facility] [address] [id number] [place] [address] Mar, [facility] [place] [facility] [address] [id number] [place] [address] Mar, [facility] [place] [facility] [address] [id number] [place] [address] Mar, [facility] [place] [facility] [address] [id number] [place] [address] Mar, [facility] [place] [facility] [address] [id number] [place] [address] Mar, [facility] [place] [facility] [address] [id number] [place] [address] Mar, [facility] [place] [facility] [address] [id number] [place] [address] Feb, [facility] [place] [facility] [address] [id number] [place] [address] Feb, [facility] [place] [facility] [address] [id number] [place] [address] Feb, [facility] [place] [facility] [address] [id number] [place] [address] Feb, [facility] [place] [facility] [address] [id number] [place] [address] Feb, [facility] [place] [facility] [address] [id number] [place] [address] Feb, [facility] [place] [facility] [address] [id number] [place] [address] Jan, [facility] [place] [facility] [address] [id number] [place] [address] Jan, [facility] [place] [facility] [address] [id number] [place] [address] Jan, [facility] [place] [facility] [address] [id number] [place] [address] Jan, [facility] [place] [facility] [address] [id number] [place] [address] Jan, [facility] [place] [facility] [address] [id number] [place] [address] Jan, [facility] [place] [facility] [address] [id number] [place] [address] Jan, [facility] [place] [facility] [address] [id number] [place] [address] Jan, [facility] [place] [facility] [address] [id number] [place] [address] Dec, [facility] [place] [facility] [address] [id number] [place] [address] Dec, [facility] [place] [facility] [address] [id number] [place] [address] Dec, [facility] [place] [facility] [address] [id number] [place] [address] Dec, [facility] [place] [facility] [address] [id number] [place] [address] Dec, [facility] [place] [facility] [address] [id number] [place] [address] Dec, [facility] [place] [facility] [address] [id number] [place] [address] Dec, [facility] [place] [facility] [address] [id number] [place] [address] Dec, [facility] [place] [facility] [address] [id number] [place] [address] October, [facility] [place] [facility] [address] [id number] [place] [address] October, [facility] [place] [facility] [address] [id number] [place] [address] Sep, [facility] [place] [facility] [address] [id number] [place] [address] Sep, [facility] [place] [facility] [address] [id number] [place] [address] Sep, [facility] [place] [facility] [address] [id number] [place] [address] Sep, [facility] [place] [facility] [address] [id number] [place] [address] Sep, [facility] [place] [facility] [address] [id number] [place] [address] Sep, [facility] [place] [facility] [address] [id number] [place] [address] Sep, [facility] [place] [facility] [address] [id number] [place] [address] Sep, [facility] [place] [facility] [address] [id number] [place] [address] Sep, [facility] [place] [facility] [address] [id number] [place] [address] Sep, [facility] [place] [facility] [address] [id number] [place] [address] Sep, [facility] [place] [facility] [address] [id number] [place] [address] Sep, [facility] [place] [facility] [address] [id number] [place] [address] Aug, [facility] [place] [facility] [address] [id number] [place] [address] Aug, [facility] [place] [facility] [address] [id number] [place] [address] Aug, [facility] [place] [facility] [address] [id number] [place] [address] Jun, [facility] [place] [facility] [address] [id number] [place] [address] Jun, [facility] [place] [facility] [address] [id number] [place] [address] Jun, [facility] [place] [facility] [address] [id number], [place] [address] Jun, [facility] [address] [id number] [place] [address] Jun, [facility] [place] [facility] [address] [id number] [place] [address] Jun, [facility] [place] [facility] [address] [facility] [id number] [place] [address] Jun, [facility] [place] [facility] [address] [id number] [place] [address] Jun, [facility] [place] [facility] [address] [id number] [place] [address] Jun, [facility] [place] [facility] [address] [id number] [place] [address] Jun, [facility] [address] [facility] [id number], [place] [address] May, [facility] [place] [facility] [address] [id number] [place] [address] May, [facility] [place] [facility] [address] [facility] [id number] [place] [address] May, [facility] [place] [facility] [address] [facility] [id number] [place] [address] May, [facility] [place] [facility] [address] [id number], [place] [address] Apr, [facility] [place] [facility] [address] [id number], [place] [address] Apr, [facility] [place] [facility] [address] [id number] [place] [address] Apr, [facility] [place] [facility] [address] [facility] [id number] [place] [address] Apr, [facility] [place] [facility] [address] [facility] [id number], [place] [address] Apr, [facility] [place] [facility] [address] [id number] [place] [address] Apr, [facility] [facility] [address] [id number] [place] [address] Apr, [facility] [place] [facility] [address] [id number] [place] [address] Apr, [facility] [place] [facility] [address] [id number] [place] [address] Mar, [facility] [place] [facility] [address] [id number] [place] [address] Mar, [facility] [place] [facility] [address] [id number] [place] [address] Mar, [facility] [place] [facility] [address] [id number] [place] [address] Mar, [facility] [place] [facility] [address] [id number] [place] [address] Mar, [facility] [place] [facility] [address] [id number] [place] [address] Feb, [facility] [place] [facility] [address] [id number] [place] [address] Feb, [facility] [place] [facility] [address] [id number] [place] [address] Feb, [facility] [place] [facility] [address] [id number] [place] [address] Feb, [facility] [place] [facility] [address] [id number] [place] [address] Feb, [facility] [place] [facility] [address] [id number] [place] [address] Jan, [facility] [place] [facility] [address] [id number] [place] [address] Jan, [facility] [place] [facility] [address] [id number] [place] [address] Nov, [facility] [address] [id number] [place] [address] Nov, [facility] [place] [facility] [address] [id number] [place] [address] Nov, [facility] [address] [facility] [id number] [place] [address] Nov, [facility] [place] [facility] [address] [id number] [place] [address] October, [facility] [address] [id number] [place] [address] Sep, [facility] [place] [address] [id number] [place] [address] Aug, [facility] [address] [id number] [place] [address] Aug, [facility] [address] [id number], [place] [address] Aug, [facility] [address] [id number], [place] [address] Aug, [facility] [address] [facility] [id number], [place] [address] Jul, [facility] [address] [id number], [place] [address] Jun, [facility] [address] [id number], [place] [address] Jun, [facility] [address] [id number], [place] [address] May, [facility] [address] [facility] [id number], [place] [address] May, [facility] [address] [id number] [place] [id number] Mar, [facility] [facility] [address] [id number] [place] [address] Mar, [facility] [address] [id number] [place] [address] Mar, 2011 [facility] [address] [id number] [place] [address] Mar, [facility] [address] [id number] [place] [address] Mar, 2011 [facility] [address] [id number] [place] [address] Mar, [facility] [address] [id number] [place] [address] Mar, [facility] [address] [id number] [place] [address] Mar, [facility] [address] [id number] [place] [address] Mar, [facility] [address] [id number] [place] [address] Mar, [facility] [address] [id number] [place] [address] 20 Mar, 2012 [facility] [facility] [address] [id number] [place] [address] Mar, [facility] [address] [id number] [place] [address] 17 Mar, 2012 [facility] [address] [id number], [place] [address] 15 Mar, 2012 [facility] [address] [id number] [place] [address] 15 Mar, 2012 [facility] [address] [id number], [place] [address] 15 Mar, 2012 [facility] [address] [id number], [place] [address] 15 Mar, 2012 [facility] [address] [id number] [place] [address] Mar, [facility] [address] [id number] [place] [address] Mar, [facility] [address] [id number] [place] [address] Mar, [facility] [address] [id number] [place] [address] Mar, [facility] [address] [id number] [place] [address] Mar, [facility] [address] [id number] [place] [address] Mar, [facility] [address] [id number] [place] [address] 19 Feb, 2012 [facility] [address] [id number] [place] [address] 18 Feb, 2012 [facility] [address] [id number] [place] [address] 17 Feb, 2012 [facility] [address] [id number] [place] [address] 14 Feb, 2012 [facility] [address] [id number] [place] [address] 14 Feb, 2012 [facility] [address] [id number] [place] [address] 12 Feb, 2012 [facility] [address] [id number] [place] [address] 10 Feb, 2012 [facility] [address] [id number] [place] [address] 31 Jan, 2012 [facility] [address] [id number] [place] [address] 30 Jan, 2012 [facility] [address] [id number] [place] [address] Jan, [facility] [address] [id number] [place] [address] Jan, [facility] [address] [id number] [place] [address] Jan, [facility] [address] [id number] [place] [address] Jan, [facility] [address] [id number] [place] [address] Jan, [facility] [address] [id number] [place] [address] Jan, [facility] [address] [id number] [place] [address] Jan, [facility] [address] [id number] [place] [address] Jan, [facility] [address] [id number] [place] [address] Dec, [facility] [address] [id number] [place] [address] 24 Dec, 2011 [facility] [address] [id number] [place] [address] Dec, [facility] [address] [id number] [place] [address] Dec, [facility] [address] [id number] [place] [address] 18 Dec, 2011 [facility] [address] [id number] [place] [address] Dec, [facility] [address] [id number] [place] [address] 16 Dec, 2011 [facility] [address] [id number] [place] [address] 14 Dec, 2011 [facility] [id number], [place] [address] Dec, [facility] [id number], [place] [address] Dec, [facility] [id number], [place] [address] Dec, [facility] [id number], [place] [address] Nov, [facility] [id number], [place] [address] Nov, [facility] [id number] [place] [address] Nov, [facility] [id number], [place] [address] Nov, [facility] [id number] [place] [address] Nov, [facility] [id number], [place] [address] Nov, [facility] [id number], [place] [address] Nov, [facility] [id number], [place] [address] Nov, [facility] [id number], [place] [address] Nov, [facility] [id number], [place] [address] Nov, [facility] [id number], [place] [address] October, IMMUNIZATIONS No Known Immunizations SOCIAL HISTORY Never Assessed REASON FOR VISIT EMR-[facility] [place], [place] PLAN OF CARE VITAL SIGNS MEDICATIONS Unknown [...] hysterectomy-total 2005 Surgical History lower GI [place] [facility] -not sure results Surgical History EGD Hospitalization [...]
--- OUTSIDE RECORDS SUMMARY | 2018-11-18 20:46 | XMS REPORT ---
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 Name Role Phone Migration, Doctor Unavailable Unavailable PROBLEMS Type Condition ICD9-CM Code HQU76-VJ Code Onset Dates Condition Status SNOMED Code Problem Elevated liver enzymes R74.8 Active 330193748 Problem Abnormal glucose R73.09 Active 622162048 Problem Hyperlipidemia LDL goal <100 E78.5 Active 19918545 Problem Hypokalemia E87.6 Active 32212965 Problem Major depressive disorder, recurrent episode, moderate F33.1 Active 382781617 Problem Tremor, hereditary, benign G25.0 Active 680107713 Problem Chronic migraine without aura with status migrainosus, not intractable G43.701 Active 805231464 Problem 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 Active 29207872 Problem Other chronic pain G89.29 Active 34152039 Problem Seizure disorder G40.909 Active 197744572 Problem Other chronic pain G89.29 Active 78274160 Problem Essential hypertension I10 Active 73677763 Problem Reflux gastritis K29.60 Active 01791237 Problem Irritable bowel K58.9 Active 08252908 Problem Primary insomnia F51.01 Active 6584797 Problem Moderate persistent asthma without complication J45.40 Active 473358493 Problem Moderate persistent asthma with exacerbation J45.41 Active 083966429 Problem Intractable chronic migraine without aura and with status migrainosus G43.711 Active 783859718 ALLERGIES No Information ENCOUNTERS Encounter Location Date Diagnosis [facility] [address] [place] [address] Sep, Chronic nausea R11.0 [facility] [id number] [address] Sep, [facility] [id number], [place] [address] Sep, Viral gastroenteritis A08.4 [facility] [id number] [place] [address] Aug, Headache R51 ; Viral upper respiratory tract infection J06.9 and Nausea R11.0 [facility] [id number] [place] [address] Jun, Reflux gastritis K29.60 [facility] [id number] [place] [address] Jun, [facility] [id number] [place] [address] May, [facility] [id number] [place] [address] May, [facility] [id number] [place] [address] Apr, Bowel habit changes R19.4 and Acute cystitis without hematuria N30.00 [facility] [id number] [place] [address] Apr, Pain in right shoulder M25.511 [facility] [id number] [place] [address] Apr, [facility] [id number] [place] [address] Mar, [facility] [id number] [place] [address] Mar, [facility] [id number] [place] [address] Mar, [facility] [id number] [place] [address] Mar, [facility] [id number] [place] [address] 14 Feb, 2018 [facility] [id number] [place] [address] 10 Feb, 2018 [facility] [id number] [place] [address] Feb, [facility] [address], [place] [address] Jan, [facility] [id number] [place] [address] Dec, [facility] [id number] [place] [address] Dec, Other chronic pain G89.29 ; Pain in right shoulder M25.511 and Liver enzyme elevation R74.8 [facility] [id number] [place] [address] Nov, Other chronic pain G89.29 and Pain in right shoulder M25.511 [facility] [id number] [place] [address] October, [facility] [id number] [place] [address] October, Right shoulder pain, unspecified chronicity M25.511 [facility] [id number] [place] [address] Aug, Elevated liver enzymes R74.8 and Hyperlipidemia LDL goal <100 E78.5 [facility] [id number] [place] [address] Aug, [facility] [id number] [place] [address] Jul, [facility] [id number] [place] [address] Jul, Intractable chronic migraine without aura and with status migrainosus G43.711 ; Fever, unspecified fever cause R50.9 and Elevated liver enzymes R74.8 [facility] [address], [place] [address] Jun, Difficulty urinating R39.198 and Moderate persistent asthma with exacerbation J45.41 [facility] [id number] [place] [address] Jun, [facility] [address] [address] Jun, Moderate persistent asthma with exacerbation J45.41 [facility] [id number] [place] [address] May, Elevated liver enzymes R74.8 and Hyperlipidemia LDL goal <100 E78.5 [facility] [address] [address] May, Elevated lipids E78.5 [facility] [facility] [address] [address] Apr, Elevated liver enzymes R74.8 [place] [facility] [address] [address] Apr, Elevated liver enzymes R74.8 [place] [facility] [address] [address] Apr, Superior glenoid labrum lesion of right shoulder, subsequent encounter S43.431D [address] [address] Apr, Hypokalemia E87.6 ; Major depressive disorder, recurrent episode, moderate F33.1 ; Other abnormalities of breathing R06.89 and Dyspnea, unspecified R06.00 [facility] [id number] [place] [address] Mar, Moderate persistent asthma without complication J45.40 [facility] [id number] [place] [address] Mar, Impingement syndrome of right shoulder M75.41 [facility] [id number] [place] [address] Jan, [facility] [id number] [place] [address] 03 Aug, 2017 Chronic migraine without aura with status migrainosus, not intractable G43.701 ; Essential hypertension I10 ; Irritable bowel K58.9 ; Primary insomnia F51.01 and Hypokalemia E87.6 [facility] [id number] [place] [address] Dec, [facility] [id number] [place] [address] Dec, Pain in right shoulder M25.511 [facility] [id number] [place] [address] Dec, [facility] [id number] [place] [address] Dec, Essential hypertension I10 [facility] [id number] [place] [address] Nov, Essential hypertension I10 [facility] [id number] [place] [address] Nov, Pain in right shoulder M25.511 [facility] [id number] [place] [address] Nov, Pain in right shoulder M25.511 [facility] [id number] [place] [address] October, [facility] [id number] [place] [address] October, Pain in right shoulder M25.511 [facility] [id number] [place] [address] Sep, Arm pain, right M79.601 [facility] [id number] [place] [address] Sep, [facility] [id number] [place] [address] Sep, Abnormal glucose R73.09 and Elevated lipids E78.5 [facility] [id number] [place] [address] Sep, Abnormal glucose R73.09 and Elevated lipids E78.5 [facility] [id number] [place] [address] Aug, [facility] [facility] [id number] [place] [address] Aug, [place] [address] [address] Aug, [facility] [id number] [place] [address] Aug, 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 ; Hypokalemia E87.6 ; Irritable bowel K58.9 ; Essential hypertension I10 ; Pain in right shoulder M25.511 ; Seizure disorder G40.909 and Screening for lipid disorders Z13.220 [address] [address] [address] 28 Jul, 2016 Other chronic pain G89.29 and Pain in right shoulder M25.511 [facility] [id number] [place] [address] 14 Jul, 2016 Biceps muscle strain, right, subsequent encounter S46.111D [facility] [id number] [place] [address] Jul, Arm pain, right M79.601 [facility] [id number] [place] [address] Jun, [place] [id number] [place] [address] Jun, Acute non-recurrent frontal sinusitis J01.10 [facility] [id number] [place] [address] 14 May, 2016 Generalized abdominal pain R10.84 ; Urinary tract infection without hematuria, site unspecified N39.0 ; Hypokalemia E87.6 ; Essential hypertension I10 ; Screening for lipid disorders Z13.220 ; Seizure R56.9 and Low back pain M54.5 [address] [id number] [place] [address] Apr, [facility] [id number] [place] [address] Feb, [address] [place] [address] Jan, [place] [address] [address] Dec, 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 ; Hypokalemia E87.6 ; Irritable bowel K58.9 and Nausea R11.0 [facility] [id number] [place] [address] Dec, Generalized abdominal pain R10.84 [address] [place] [address] [address] Nov, [facility] [id number] [place] [address] Aug, Acute bronchitis J20.9 [place] [id number] [place] [address] Aug, [place] [id number] [place] [address] 08 Aug, 2015 Low back pain M54.5 ; Hypokalemia E87.6 ; Chronic migraine without aura with status migrainosus, not intractable G43.701 ; Tremor, hereditary, benign G25.0 ; Irritable bowel K58.9 ; Essential hypertension I10 and Seizure R56.9 [address] [place] [address] [address] 07 Aug, 2015 [address] [address] [address] Jul, [address] [address] [place] [address] 03 Jul, 2015 Low back pain M54.5 ; Hypokalemia E87.6 ; Chronic migraine without aura with status migrainosus, not intractable G43.701 ; Tremor, hereditary, benign G25.0 ; Irritable bowel K58.9 ; Essential hypertension I10 and Seizure R56.9 [place] [id number] [place] [address] Jun, Hypokalemia E87.6 [address] [place] [address] [address] 15 Jun, 2015 ADD (attention deficit disorder) without hyperactivity F90.0 ; Generalized anxiety disorder F41.1 and Major depressive disorder, recurrent episode, moderate F33.1 [place] [facility] [id number] [place] [address] Jun, Low back pain M54.5 ; Hypokalemia E87.6 ; Chronic migraine without aura with status migrainosus, not intractable G43.701 ; Tremor, hereditary, benign G25.0 ; Irritable bowel K58.9 ; Essential hypertension I10 and Seizure R56.9 [place] [id number] [place] [address] Jun, [facility] [id number] [place] [address] May, [facility] [id number] [place] [address] May, Low back pain M54.5 ; Hypokalemia E87.6 ; Chronic migraine without aura with status migrainosus, not intractable G43.701 ; Tremor, hereditary, benign G25.0 ; Irritable bowel K58.9 ; Essential hypertension I10 ; Seizure R56.9 and Tinea capitis B35.0 [place] [id number] [place] [address] May, Low back pain M54.5 ; Hypokalemia E87.6 ; Chronic migraine without aura with status migrainosus, not intractable G43.701 ; Tremor, hereditary, benign G25.0 ; Irritable bowel K58.9 ; Essential hypertension I10 ; Seizure R56.9 ; Otitis media, left H66.92 and Dysuria 788.1 [place] [id number] [place] [address] 14 May, 2015 Tooth pain K08.8 [address] [address] [address] May, [place] [address] [address] May, Low back pain M54.5 ; Hypokalemia E87.6 ; Chronic migraine without aura with status migrainosus, not intractable G43.701 ; Tremor, hereditary, benign G25.0 ; Irritable bowel K58.9 and Essential hypertension I10 [address] [address] [address] Apr, Low back pain M54.5 ; Hypokalemia E87.6 ; Chronic migraine without aura with status migrainosus, not intractable G43.701 ; Tremor, hereditary, benign G25.0 and Irritable bowel K58.9 [place] [id number] [place] [address] Apr, Low back pain M54.5 [facility] [id number] [place] [address] Mar, [place] [address] [address] Mar, Irritable bowel syndrome with diarrhea K58.0 [place] [address] [address] Mar, [facility] [id number] [place] [address] Feb, [place] [id number] [place] [address] 08 Feb, 2015 [facility] [id number] [place] [address] Feb, Irritable bowel syndrome 564.1 ; Lumbago 724.2 and Cervical pain (neck) 723.1 [facility] [id number] [place] [address] Dec, Major depressive disorder, recurrent episode, moderate 296.32 and Generalized anxiety disorder 300.02 [facility] [id number] [place] [address] Nov, [facility] [address] [address] Nov, Major depressive disorder, recurrent episode, moderate 296.32 [facility] [id number] [place] [address] Nov, Constipation 564.00 ; Nausea & vomiting 787.01 and Abdominal pain 789.00 [facility] [id number] [place] [address] Nov, [facility] [id number] [place] [address] October, [facility] [id number] [place] [address] October, [facility] [id number] [place] [address] October, [facility] [id number] [place] [address] October, [facility] [id number] [place] [address] Sep, [facility] [id number] [place] [address] Sep, Dysuria 788.1 [facility] [address] [place] [address] 30 Sep, 2014 [facility] [place] [facility] [address] [id number] [place] [address] 14 Sep, 2014 [facility] [place] [facility] [address] [id number] [place] [address] 13 Sep, 2014 [facility] [place] [facility] [address] [id number] [place] [address] 30 Aug, 2014 [facility] [place] [facility] [address] [id number] [place] [address] 30 Aug, 2014 [facility] [place] [facility] [address] [id number] [place] [address] Aug, [facility] [place] [facility] [address] [id number] [place] [address] Aug, [facility] [place] [facility] [address] [id number] [place] [address] Aug, [facility] [place] [facility] [address] [id number] [place] [address] Aug, [facility] [place] [facility] [address] [id number] [place] [address] Aug, [facility] [place] [facility] [address] [id number] [place] [address] Aug, [facility] [place] [facility] [address] [id number] [place] [address] Aug, [facility] [place] [facility] [address] [id number] [place] [address] Aug, [facility] [place] [facility] [address] [id number] [place] [address] Jun, [facility] [place] [facility] [address] [id number] [place] [address] Jun, [facility] [place] [facility] [address] [id number] [place] [address] Jun, [facility] [place] [facility] [address] [id number] [place] [address] Jun, [facility] [place] [facility] [address] [id number] [place] [address] May, [facility] [place] [facility] [address] [id number] [place] [address] May, [facility] [place] [facility] [address] [id number] [place] [address] May, [facility] [place] [facility] [address] [id number] [place] [address] May, [facility] [place] [facility] [address] [id number] [place] [address] May, [facility] [place] [facility] [address] [id number] [place] [address] May, [facility] [place] [facility] [address] [id number] [place] [address] May, [facility] [place] [facility] [address] [id number] [place] [address] May, [facility] [place] [facility] [address] [id number] [place] [address] Mar, [facility] [place] [facility] [address] [id number] [place] [address] Mar, [facility] [place] [facility] [address] [id number] [place] [address] Mar, [facility] [place] [facility] [address] [id number] [place] [address] Mar, [facility] [place] [facility] [address] [id number] [place] [address] Mar, [facility] [place] [facility] [address] [id number] [place] [address] Mar, [facility] [place] [facility] [address] [id number] [place] [address] 14 Mar, 2014 [facility] [place] [facility] [address] [id number] [place] [address] 14 Mar, 2014 [facility] [place] [facility] [address] [id number] [place] [address] Mar, [facility] [place] [facility] [address] [id number] [place] [address] Mar, [facility] [place] [facility] [address] [id number] [place] [address] Mar, [facility] [place] [facility] [address] [id number] [place] [address] Mar, [facility] [place] [facility] [address] [id number] [place] [address] 24 Feb, 2014 [facility] [place] [facility] [address] [id number] [place] [address] 24 Feb, 2014 [facility] [place] [facility] [address] [id number] [place] [address] Feb, [facility] [place] [facility] [address] [id number] [place] [address] Feb, [facility] [place] [facility] [address] [id number] [place] [address] Feb, [facility] [place] [facility] [address] [id number] [place] [address] Feb, [facility] [place] [facility] [address] [id number], [place] [address] Jan, [facility] [place] [facility] [address] [id number] [place] [address] Jan, [facility] [place] [facility] [address] [id number] [place] [address] Jan, [facility] [place] [facility] [address] [id number] [place] [address] Jan, [facility] [place] [facility] [address] [id number] [place] [address] Jan, [facility] [place] [facility] [address] [id number] [place] [address] Jan, [facility] [place] [facility] [address] [id number] [place] [address] Jan, [facility] [place] [facility] [address] [id number] [place] [address] Jan, [facility] [place] [facility] [address] [id number] [place] [address] Dec, [facility] [place] [facility] [address] [id number] [place] [address] Dec, [facility] [place] [facility] [address] [id number] [place] [address] Dec, [facility] [place] [facility] [address] [id number] [place] [address] Dec, [facility] [place] [facility] [address] [id number] [place] [address] Dec, [facility] [place] [facility] [address] [id number] [place] [address] Dec, [facility] [place] [facility] [address] [id number] [place] [address] Dec, [facility] [place] [facility] [address] [id number] [place] [address] Dec, [facility] [place] [facility] [address] [id number] [place] [address] October, [facility] [place] [facility] [address] [id number] [place] [address] October, [facility] [place] [facility] [address] [id number] [place] [address] Sep, [facility] [place] [facility] [address] [id number] [place] [address] Sep, [facility] [place] [facility] [address] [id number] [place] [address] Sep, [facility] [place] [facility] [address] [id number] [place] [address] Sep, [facility] [place] [facility] [address] [id number] [place] [address] Sep, [facility] [place] [facility] [address] [id number] [place] [address] Sep, [facility] [place] [facility] [address] [id number] [place] [address] Sep, [facility] [place] [facility] [address] [id number] [place] [address] Sep, [facility] [place] [facility] [address] [id number] [place] [address] Sep, [facility] [place] [facility] [address] [id number] [place] [address] Sep, [facility] [place] [facility] [address] [id number] [place] [address] Sep, [facility] [place] [facility] [address] [id number] [place] [address] Sep, [facility] [place] [facility] [address] [id number] [place] [address] Aug, [facility] [place] [facility] [address] [id number] [place] [address] Aug, [facility] [place] [facility] [address] [id number] [place] [address] Aug, [facility] [place] [facility] [address] [id number] [place] [address] Jun, [facility] [place] [facility] [address] [id number] [place] [address] Jun, [facility] [place] [facility] [address] [id number], [place] [address] Jun, [facility] [place] [facility] [address] [id number] [place] [address] Jun, [facility] [place] [facility] [address] [id number] [place] [address] Jun, [facility] [place] [facility] [address] [id number] [place] [address] Jun, [facility] [place] [facility] [address] [id number] [place] [address] Jun, [facility] [place] [facility] [address] [id number] [place] [address] Jun, [facility] [place] [facility] [address] [id number] [place] [address] Jun, [facility] [place] [facility] [address] [id number] [place] [address] Jun, [facility] [place] [facility] [address] [id number] [place] [address] May, [facility] [place] [facility] [address] [id number] [place] [address] May, [facility] [place] [facility] [address] [id number] [place] [address] May, [facility] [place] [facility] [address] [id number] [place] [address] May, [facility] [place] [facility] [address] [id number] [place] [address] Apr, [facility] [place] [facility] [address] [id number] [place] [address] Apr, [facility] [place] [facility] [address] [id number] [place] [address] Apr, [facility] [place] [facility] [address] [id number] [place] [address] Apr, [facility] [place] [facility] [address] [id number] [place] [address] Apr, [facility] [place] [facility] [address] [id number] [place] [address] Apr, [facility] [place] [facility] [address] [id number] [place] [address] Apr, [facility] [place] [facility] [address] [id number] [place] [address] Apr, [facility] [place] [facility] [address] [id number] [place] [address] Mar, [facility] [place] [facility] [address] [id number] [place] [address] Mar, [facility] [place] [facility] [address] [id number] [place] [address] Mar, [facility] [place] [facility] [address] [id number] [place] [address] Mar, [facility] [place] [facility] [address] [id number] [place] [address] Mar, [facility] [place] [facility] [address] [id number] [place] [address] Feb, [facility] [place] [facility] [address] [id number] [place] [address] Feb, [facility] [place] [facility] [address] [id number] [place] [address] Feb, [facility] [place] [facility] [address] [id number] [place] [address] Feb, [facility] [place] [facility] [address] [id number] [place] [address] Feb, [facility] [place] [facility] [address] [id number] [place] [address] Jan, [facility] [place] [facility] [address] [id number] [place] [address] Jan, [facility] [address] [id number] [place] [address] Nov, [facility] [place] [facility] [address] [id number] [place] [address] Nov, [facility] [address] [id number] [place] [address] Nov, [facility] [place] [facility] [address] [id number] [place] [address] Nov, [facility] [address] [id number] [place] [address] October, [facility] [place] [facility] [address] [id number] [place] [address] Sep, [facility] [address] [id number] [place] [address] Aug, [facility] [place] [facility] [address] [id number] [place] [address] Aug, [facility] [address] [id number] [place] [address] Aug, [facility] [place] [facility] [address] [id number] [place] [address] Aug, [facility] [address] [id number] [place] [address] Jul, [facility] [place] [facility] [address] [id number], [place] [address] Jun, [facility] [place] [facility] [address] [id number] [place] [address] Jun, [facility] [place] [facility] [address] [id number] [place] [address] May, [facility] [place] [facility] [address] [id number] [place] [address] May, [facility] [place] [facility] [address] [id number] [id number] Mar, 2011 [facility] [place] [facility] [address] [id number] [place] [address] Mar, 2011 [facility] [place] [facility] [address] [id number], [place] [address] Mar, 2011 [facility] [place] [facility] [address] [id number] [place] [address] Mar, [facility] [place] [facility] [address] [id number] [place] [address] Mar, 2011 [facility] [place] [facility] [address] [id number] [place] [address] Mar, 2011 [facility] [place] [facility] [address] [id number] [place] [address] Mar, 2011 [facility] [place] [facility] [address] [id number], [place] [address] Mar, 2011 [facility] [place] [facility] [address] [id number], [place] [address] Mar, [facility] [place] [facility] [address] [id number] [place] [address] Mar, 2011 [facility] [place] [facility] [address] [facility] [id number], [place] [address] 20 Mar, 2011 [facility] [place] [facility] [address] [id number] [place] [address] 17 Mar, 2011 [facility] [place] [facility] [address] [id number], [place] [address] 17 Mar, 2011 [facility] [place] [facility] [address] [id number], [place] [address] 15 Mar, 2011 [facility] [place] [facility] [address] [facility] [id number], [place] [address] 15 Mar, 2011 [facility] [place] [facility] [address] [facility] [id number], [place] [address] 15 Mar, 2011 [facility] [place] [facility] [address] [id number] [place] [address] 15 Mar, 2012 [facility] [place] [facility] [address] [id number] [place] [address] 11 Mar, 2012 [facility] [place] [facility] [address] [id number] [place] [address] Mar, [facility] [place] [facility] [address] [id number] [place] [address] Mar, [facility] [place] [facility] [address] [id number] [place] [address] 08 Mar, 2012 [facility] [place] [facility] [address] [id number] [place] [address] 03 Mar, 2012 [facility] [place] [facility] [address] [id number] [place] [address] Mar, [facility] [place] [facility] [address] [id number] [place] [address] 19 Feb, 2012 [facility] [place] [facility] [address] [id number] [place] [address] 18 Sep, 2011 [facility] [place] [facility] [address] [id number] [place] [address] 17 Sep, 2011 [facility] [place] [facility] [address] [id number] [place] [address] 14 Sep, 2011 [facility] [place] [facility] [address] [id number] [place] [address] 14 Sep, 2011 [facility] [place] [facility] [address] [id number] [place] [address] 12 Sep, 2011 [facility] [place] [facility] [address] [id number] [place] [address] 10 Feb, 2011 [facility] [place] [facility] [address] [id number] [place] [address] 31 Jan, 2012 [facility] [place] [facility] [address] [id number] [place] [address] Jan, [facility] [place] [facility] [address] [id number] [place] [address] Jan, [facility] [place] [facility] [address] [id number] [place] [address] Jan, [facility] [place] [facility] [address] [id number] [place] [address] Jan, [facility] [place] [facility] [address] [id number] [place] [address] Jan, [facility] [place] [facility] [address] [id number] [place] [address] Jan, [facility] [place] [facility] [address] [id number] [place] [address] Jan, [facility] [place] [facility] [address] [id number] [place] [address] Jan, [facility] [place] [facility] [address] [id number] [place] [address] Jan, [facility] [place] [facility] [address] [id number] [place] [address] Dec, [facility] [place] [facility] [address] [id number] [place] [address] Dec, [facility] [place] [facility] [address] [id number] [place] [address] Dec, [facility] [place] [facility] [address] [id number] [place] [address] Dec, [facility] [place] [facility] [address] [id number] [place] [address] Dec, [facility] [place] [facility] [address] [id number] [place] [address] Dec, [facility] [place] [facility] [address] [id number] [place] [address] Dec, [facility] [place] [facility] [id number], [place] [address] 14 Dec, 2011 [facility] [id number], [place] [address] Dec, [facility] [id number], [place] [address] Dec, [facility] [id number], [place] [address] 06 Dec, 2011 [facility] [address] [id number], [place] [address] 29 Nov, 2011 [facility] [id number], [place] [address] 27 Nov, 2011 [facility] [id number], [place] [address] Nov, [facility] [id number], [place] [address] Nov, [facility] [id number], [place] [address] Nov, [facility] [id number], [place] [address] Nov, [facility] [id number], [place] [address] Nov, [facility] [id number], [place] [address] Nov, [facility] [address] [id number], [place] [address] Nov, [facility] [id number], [place] [address] 05 Nov, 2011 [facility] [id number], [place] [address] October, IMMUNIZATIONS No Known Immunizations SOCIAL HISTORY Never Assessed REASON FOR VISIT EMR-[facility] PLAN OF CARE VITAL SIGNS MEDICATIONS No [...] hysterectomy-total 2005 Surgical History lower GI Gianni Otego -not sure results Surgical History EGD Hospitalization [...]
--- OUTSIDE RECORDS SUMMARY | 2018-11-18 20:51 | XMS REPORT | Continuity of Care Document ---
Author Organization Unknown Address Unknown Allergies Active Description Code Type Severity Reaction Onset Reported/Identified Relationship to Patient Clinical Status Yes morphine Drug Allergy 12/13/2011 Yes morphine Drug Allergy N/A N/A 12/13/2011 Yes NSAIDS (Non-Steroidal Anti-Inflamma [id number] Drug Allergy Mild have IBS and av 12/04/2012 Yes morphine [id number] Drug Allergy Unknown CAUSES "REBOUND 08/20/2013 Yes baclofen [id number] Drug Allergy Severe N/A 06/13/2015 Yes meloxicam [id number] Drug Allergy Severe N/A 06/13/2015 Medications There is no data. Problems Date Dx Coded Attending Type Code Diagnosis Diagnosed By 10/30/2011 Ot 920 CONTUSION FACE/SCALP/NCK 10/30/2011 Ot 922.1 CONTUSION OF CHEST WALL 10/30/2011 Ot 959.01 HEAD INJURY, NOS 10/30/2011 Ot E000.8 OTHER EXTERNAL CAUSE [...] ROJAS APRN 493.90 ASTHMA UNSPECIFIED 11/06/2011 ROJAS FOUNDRY PATTERNMAKER, CEDRICK TYLER 564.1 IRRITABLE BOWEL SYNDROME 11/06/2011 493.90 ASTHMA UNSPECIFIED 11/06/2011 564.1 IRRITABLE BOWEL SYNDROME 11/06/2011 ROJAS FOUNDRY PATTERNMAKER, CEDRICK TYLER 493.90 ASTHMA UNSPECIFIED 11/06/2011 ROJAS FOUNDRY PATTERNMAKER, CEDRICK TYLER 564.1 IRRITABLE BOWEL SYNDROME 11/06/2011 ROJAS FOUNDRY PATTERNMAKER, CEDRICK TYLER 493.90 ASTHMA UNSPECIFIED 11/06/2011 ROJAS FOUNDRY PATTERNMAKER, CEDRICK TYLER 564.1 IRRITABLE BOWEL SYNDROME 11/06/2011 ROJAS FOUNDRY PATTERNMAKER, CEDRICK TYLER 493.90 ASTHMA UNSPECIFIED 11/06/2011 ROJAS FOUNDRY PATTERNMAKER, CEDRICK TYLER 564.1 IRRITABLE BOWEL SYNDROME 11/06/2011 ROJAS FOUNDRY PATTERNMAKER, CEDRICK TYLER 493.90 ASTHMA UNSPECIFIED 11/06/2011 ROJAS FOUNDRY PATTERNMAKER, CEDRICK TYLER 564.1 IRRITABLE BOWEL SYNDROME 11/06/2011 ROJAS FOUNDRY PATTERNMAKER, CEDRICK TYLER 493.90 ASTHMA UNSPECIFIED 11/06/2011 ROJAS FOUNDRY PATTERNMAKER, CEDRICK TYLER 564.1 IRRITABLE BOWEL SYNDROME 11/06/2011 ROJAS FOUNDRY PATTERNMAKER, CEDRICK TYLER 493.90 ASTHMA UNSPECIFIED 11/06/2011 ROJAS FOUNDRY PATTERNMAKER, CEDRICK TYLER 564.1 IRRITABLE BOWEL SYNDROME 11/06/2011 TEMO FOUNDRY PATTERNMAKER, CHRISTIE 493.90 ASTHMA UNSPECIFIED 11/06/2011 TEMO FOUNDRY PATTERNMAKER, CHRISTIE 564.1 IRRITABLE BOWEL SYNDROME 11/06/2011 TEMO FOUNDRY PATTERNMAKER, CHRISTIE 493.90 ASTHMA UNSPECIFIED 11/06/2011 TEMO FOUNDRY PATTERNMAKER, CHRISTIE 564.1 IRRITABLE BOWEL SYNDROME 11/06/2011 [facility], JEFF R 493.90 ASTHMA UNSPECIFIED 11/06/2011 [facility], JEFF R 564.1 IRRITABLE BOWEL SYNDROME 11/06/2011 SRIRAM FOUNDRY PATTERNMAKER, SIDNEY R 493.90 ASTHMA UNSPECIFIED 11/06/2011 SRIRAM FOUNDRY PATTERNMAKER, SIDNEY R 564.1 IRRITABLE BOWEL SYNDROME 11/06/2011 SRIRAM FOUNDRY PATTERNMAKER, SIDNEY R 493.90 ASTHMA UNSPECIFIED 11/06/2011 SRIRAM FOUNDRY PATTERNMAKER, SIDNEY R 564.1 IRRITABLE BOWEL SYNDROME 11/06/2011 PIO FOUNDRY PATTERNMAKER, BILL S 493.90 ASTHMA UNSPECIFIED 11/06/2011 PIO DURANNDILIABILL S 564.1 IRRITABLE BOWEL SYNDROME 11/14/2011 PIO FOUNDRY PATTERNMAKER, BILL S 300.00 ANXIETY UNSPEC 11/14/2011 PIO FOUNDRY PATTERNMAKER, BILL S 346.90 MIGRAINE HEADACHE 11/14/2011 PIO FOUNDRY PATTERNMAKER, BILL S 724.5 BACK PAIN, GENERAL 11/14/2011 PIO DURANNMELITONA S 788.1 DYSURIA 11/14/2011 ROJAS FOUNDRY PATTERNMAKERCEDRICK 300.00 ANXIETY UNSPEC 11/14/2011 ROJAS FOUNDRY PATTERNMAKER, CEDRICK TYLER 346.90 MIGRAINE HEADACHE 11/14/2011 ROJAS FOUNDRY PATTERNMAKER, CEDRICK TYLER 724.5 BACK PAIN, GENERAL 11/14/2011 ROJAS FOUNDRY PATTERNMAKER, CEDRICK TYLER 788.1 DYSURIA 11/14/2011 300.00 ANXIETY UNSPEC 11/14/2011 346.90 MIGRAINE HEADACHE 11/14/2011 724.5 BACK PAIN, GENERAL 11/14/2011 788.1 DYSURIA 11/14/2011 ROJAS FOUNDRY PATTERNMAKERCEDRICK 300.00 ANXIETY UNSPEC 11/14/2011 ROJAS FOUNDRY PATTERNMAKER, CEDRICK TYLER 346.90 MIGRAINE HEADACHE 11/14/2011 ROJAS FOUNDRY PATTERNMAKER, CEDRICK TYLER 724.5 BACK PAIN, GENERAL 11/14/2011 ROJAS FOUNDRY PATTERNMAKER, CEDRICK TYLER 788.1 DYSURIA 11/14/2011 ROJAS FOUNDRY PATTERNMAKERCEDRICK 300.00 ANXIETY UNSPEC 11/14/2011 ROJAS FOUNDRY PATTERNMAKER, CEDRICK TYLER 346.90 MIGRAINE HEADACHE 11/14/2011 ROJAS FOUNDRY PATTERNMAKER, CEDRICK TYLER 724.5 BACK PAIN, GENERAL 11/14/2011 ROJAS FOUNDRY PATTERNMAKER, CEDRICK TYLER 788.1 DYSURIA 11/14/2011 ROJAS FOUNDRY PATTERNMAKER, CEDRICK TYLER 300.00 ANXIETY UNSPEC 11/14/2011 ROJAS FOUNDRY PATTERNMAKER, CEDRICK TYLER 346.90 MIGRAINE HEADACHE 11/14/2011 ROJAS FOUNDRY PATTERNMAKER, CEDRICK TYLER 724.5 BACK PAIN, GENERAL 11/14/2011 ROJAS FOUNDRY PATTERNMAKER, CEDRICK TYLER 788.1 DYSURIA 11/14/2011 ROJAS FOUNDRY PATTERNMAKER CEDRICK TYLER 300.00 ANXIETY UNSPEC 11/14/2011 CEDRICK [...] CEDRICK ROJAS APRN 788.1 DYSURIA 11/14/2011 TEMO FOUNDRY PATTERNMAKER, CHRISTIE 300.00 ANXIETY UNSPEC 11/14/2011 TEMO FOUNDRY PATTERNMAKER, CHRISTIE 346.90 MIGRAINE HEADACHE 11/14/2011 TEMO FOUNDRY PATTERNMAKER, CHRISTIE 724.5 BACK PAIN, GENERAL 11/14/2011 TEMO FOUNDRY PATTERNMAKER, CHRISTIE 788.1 DYSURIA 11/14/2011 TEMO FOUNDRY PATTERNMAKER, CHRISTIE 300.00 ANXIETY UNSPEC 11/14/2011 TEMO FOUNDRY PATTERNMAKER, CHRISTIE 346.90 MIGRAINE HEADACHE 11/14/2011 TEMO FOUNDRY PATTERNMAKER, CHRISTIE 724.5 BACK PAIN, GENERAL 11/14/2011 TEMO FOUNDRY PATTERNMAKER, CHRISTIE 788.1 DYSURIA 11/14/2011 [facility], JEFF R 300.00 ANXIETY UNSPEC 11/14/2011 [facility], JEFF R 346.90 MIGRAINE HEADACHE 11/14/2011 [facility], JEFF R 724.5 BACK PAIN, GENERAL 11/14/2011 [facility], JEFF R 788.1 DYSURIA 11/14/2011 SRIRAM GONZALEZ SIDNEY R 300.00 ANXIETY UNSPEC 11/14/2011 SRIRAM FOUNDRY PATTERNMAKER, SIDNEY R 346.90 MIGRAINE HEADACHE 11/14/2011 SRIRAM GONZALEZ SIDNEY R 724.5 BACK PAIN, GENERAL 11/14/2011 SRIRAM FOUNDRY PATTERNMAKER, SIDNEY R 788.1 DYSURIA 11/14/2011 SRIRAM FOUNDRY PATTERNMAKER, SIDNEY R 300.00 ANXIETY UNSPEC 11/14/2011 SRIRAM FOUNDRY PATTERNMAKER, SIDNEY R 346.90 MIGRAINE HEADACHE 11/14/2011 SRIRAM FOUNDRY PATTERNMAKER, SIDNEY R 724.5 BACK PAIN, GENERAL 11/14/2011 SRIRAM FOUNDRY PATTERNMAKER, SIDNEY R 788.1 DYSURIA 11/14/2011 PIO FOUNDRY PATTERNMAKER, BILL S 300.00 ANXIETY UNSPEC 11/14/2011 PIO FOUNDRY PATTERNMAKER, BILL S 346.90 MIGRAINE HEADACHE 11/14/2011 PIO FOUNDRY PATTERNMAKER, BILL S 724.5 BACK PAIN, GENERAL 11/14/2011 PIO FOUNDRY PATTERNMAKER, BILL S 788.1 DYSURIA 11/22/2011 Ot 599.0 URIN TRACT INFECTION NOS 11/22/2011 Ot 789.00 ABDOMINAL PAIN, UNSPECIFIED SITE 11/24/2011 DILIA SUERO APRNNDA S 599.0 URINARY TRACT INFECTION 11/24/2011 ROJAS FOUNDRY PATTERNMAKER, CEDRICK NAYELI 599.0 URINARY TRACT INFECTION 11/24/2011 599.0 URINARY TRACT INFECTION 11/24/2011 ROJAS FOUNDRY PATTERNMAKER, CEDRICK NAYELI 599.0 URINARY TRACT INFECTION 11/24/2011 ROJAS FOUNDRY PATTERNMAKER, CEDRICK NAYELI 599.0 URINARY TRACT INFECTION 11/24/2011 ROJAS FOUNDRY PATTERNMAKER, CEDRICK NAYELI 599.0 URINARY TRACT INFECTION 11/24/2011 ROJAS FOUNDRY PATTERNMAKER, CEDRICK NAYELI 599.0 URINARY TRACT INFECTION 11/24/2011 ROJAS FOUNDRY PATTERNMAKER, CEDRICK NAYELI 599.0 URINARY TRACT INFECTION 11/24/2011 ROJAS FOUNDRY PATTERNMAKER, CEDRICK NAYELI 599.0 URINARY TRACT INFECTION 11/24/2011 TEMO FOUNDRY PATTERNMAKER, CHRISTIE 599.0 URINARY TRACT INFECTION 11/24/2011 TEMO FOUNDRY PATTERNMAKER, CHRISTIE 599.0 URINARY TRACT INFECTION 11/24/2011 [facility], JEFF R 599.0 URINARY TRACT INFECTION 11/24/2011 SRIRAM FOUNDRY PATTERNMAKER, SIDNEY R 599.0 URINARY TRACT INFECTION 11/24/2011 SRIRAM FOUNDRY PATTERNMAKER, SIDNEY R 599.0 URINARY TRACT INFECTION 11/24/2011 MELITON SUERO APRNA S 599.0 URINARY TRACT INFECTION 11/28/2011 DILIA SUERO APRNNDA S 789.07 diffuse abdominal pain 11/28/2011 ROJAS FOUNDRY PATTERNMAKER, CEDRICK NAYELI 789.07 diffuse abdominal pain 11/28/2011 789.07 diffuse abdominal pain 11/28/2011 ROJAS FOUNDRY PATTERNMAKER, CEDRICK YIH 789.07 diffuse abdominal pain 11/28/2011 ROJAS FOUNDRY PATTERNMAKER, CEDRICK YIH 789.07 diffuse abdominal pain 11/28/2011 ROJAS FOUNDRY PATTERNMAKER, CEDRICK YIH 789.07 diffuse abdominal pain 11/28/2011 ROJAS FOUNDRY PATTERNMAKER, CEDRICK YIH 789.07 diffuse abdominal pain 11/28/2011 ROJAS FOUNDRY PATTERNMAKER, CEDRICK YIH 789.07 diffuse abdominal pain 11/28/2011 ROJAS FOUNDRY PATTERNMAKER, CEDRICK YIH 789.07 diffuse abdominal pain 11/28/2011 TEMO FOUNDRY PATTERNMAKER, CHRISTIE 789.07 diffuse abdominal pain 11/28/2011 TEMO FOUNDRY PATTERNMAKER, CHRISTIE 789.07 diffuse abdominal pain 11/28/2011 [facility], JEFF R 789.07 diffuse abdominal pain 11/28/2011 SRIRAM FOUNDRY PATTERNMAKER, SIDNEY R 789.07 diffuse abdominal pain 11/28/2011 SRIRAM FOUNDRY PATTERNMAKER, SIDNEY R 789.07 diffuse abdominal pain 11/28/2011 [...] TYLER 300.02 AN GEN ANXIETY 11/30/2011 ROJAS FOUNDRY PATTERNMAKER CEDRICK TYLER 296.32 MO DEPRESSIVE RECURRENT MODERATE 11/30/2011 CRYSTAL DURANAdelso CEDRICK YIH 300.02 AN GEN ANXIETY 11/30/2011 CRYSTAL DURANAdelso CEDRICK TYLER 296.32 MO DEPRESSIVE RECURRENT MODERATE 11/30/2011 CRYSTAL FOUNDRY PATTERNMAKERCEDRICK Darden 300.02 AN GEN ANXIETY 11/30/2011 ROJAS FOUNDRY PATTERNMAKER, CEDRICK TYLER 296.32 MO DEPRESSIVE RECURRENT MODERATE 11/30/2011 ROJAS FOUNDRY PATTERNMAKER, CEDRICK TYLER 300.02 AN GEN ANXIETY 11/30/2011 ROJAS FOUNDRY PATTERNMAKER, CEDRICK TYLER 296.32 MO DEPRESSIVE RECURRENT MODERATE 11/30/2011 CRYSTAL FOUNDRY PATTERNMAKERCEDRICK 300.02 AN GEN ANXIETY 11/30/2011 ROJAS FOUNDRY PATTERNMAKER, CEDRICK TYLER 296.32 MO DEPRESSIVE RECURRENT MODERATE 11/30/2011 CRYSTAL FOUNDRY PATTERNMAKER, CEDRICK TYLER 300.02 AN GEN ANXIETY 11/30/2011 TEMO FOUNDRY PATTERNMAKER, CHRISTIE 296.32 MO DEPRESSIVE RECURRENT MODERATE 11/30/2011 TEMO FOUNDRY PATTERNMAKER, CHRISTIE 300.02 AN GEN ANXIETY 11/30/2011 TEMO FOUNDRY PATTERNMAKER, CHRISTIE 296.32 MO DEPRESSIVE RECURRENT MODERATE 11/30/2011 TEMO FOUNDRY PATTERNMAKER, CHRISTIE 300.02 AN GEN ANXIETY 11/30/2011 [facility], JEFF R 296.32 MO DEPRESSIVE RECURRENT MODERATE 11/30/2011 [facility], JEFF R 300.02 AN GEN ANXIETY 11/30/2011 SRIRAM FOUNDRY PATTERNMAKER, SIDNEY R 296.32 MO DEPRESSIVE RECURRENT MODERATE 11/30/2011 SRIRAM FOUNDRY PATTERNMAKER, SIDNEY R 300.02 AN GEN ANXIETY 11/30/2011 SRIRAM FOUNDRY PATTERNMAKER, SIDNEY R 296.32 MO DEPRESSIVE RECURRENT MODERATE 11/30/2011 SRIRAM FOUNDRY PATTERNMAKER, SIDNEY R 300.02 AN GEN ANXIETY 11/30/2011 MELITON SUERO APRNA S 296.32 MO DEPRESSIVE RECURRENT MODERATE 11/30/2011 MELITON SUERO APRNA S 300.02 AN GEN ANXIETY 12/13/2011 MELITON SUERO APRNA S 625.9 PELVIC PAIN 12/13/2011 ROJAS FOUNDRY PATTERNMAKER, CEDRICK TYLER 625.9 PELVIC PAIN 12/13/2011 625.9 PELVIC PAIN 12/13/2011 ROJAS FOUNDRY PATTERNMAKER, CEDRICK TYLER 625.9 PELVIC PAIN 12/13/2011 ROJAS FOUNDRY PATTERNMAKER, CEDRICK TYLER 625.9 PELVIC PAIN 12/13/2011 ROJAS FOUNDRY PATTERNMAKER, CEDRICK TYLER 625.9 PELVIC PAIN 12/13/2011 ROJAS FOUNDRY PATTERNMAKER, CEDRICK TYLER 625.9 PELVIC PAIN 12/13/2011 CRYSTAL GONZALEZ CEDRICK TYLER 625.9 PELVIC PAIN 12/13/2011 ROJAS FOUNDRY PATTERNMAKER, CEDRICK TYLER 625.9 PELVIC PAIN 12/13/2011 TEMO FOUNDRY PATTERNMAKER, CHRISTIE 625.9 PELVIC PAIN 12/13/2011 TEMO FOUNDRY PATTERNMAKER, CHRISTIE 625.9 PELVIC PAIN 12/13/2011 [facility], JEFF R 625.9 PELVIC PAIN 12/13/2011 SRIRAM FOUNDRY PATTERNMAKER, SIDNEY R 625.9 PELVIC PAIN 12/13/2011 SRIRAM FOUNDRY PATTERNMAKER, SIDNEY R 625.9 PELVIC PAIN 12/13/2011 DILIA [...] 338.11 ACUTE PAIN DUE TO TRAUMA 12/24/2011 [facility], JEFF R 338.11 ACUTE PAIN DUE TO TRAUMA 12/24/2011 SRIRAM FOUNDRY PATTERNMAKER, SIDNEY R 338.11 ACUTE PAIN DUE TO [...] CRYSTAL DURANNCEDRICK 309.81 AN PTSD 12/25/2011 TEMO FOUNDRY PATTERNMAKER, CHRISTIE 309.81 AN PTSD 12/25/2011 TEMO FOUNDRY PATTERNMAKER, CHRISTIE 309.81 AN PTSD 12/25/2011 [facility], JEFF R 309.81 AN PTSD 12/25/2011 [...] SUERO APRN S 786.2 COUGH 03/26/2012 ROJAS FOUNDRY PATTERNMAKER, CEDRICK TYLER 786.2 COUGH 03/26/2012 786.2 COUGH 03/26/2012 CRYSTAL DURANAdelso CEDRICK TYLER 786.2 COUGH 03/26/2012 ROJAS FOUNDRY PATTERNMAKER, CEDRICK TYLER 786.2 COUGH 03/26/2012 ROJAS FOUNDRY PATTERNMAKER, CEDRICK TYLER 786.2 COUGH 03/26/2012 ROJAS FOUNDRY PATTERNMAKER, CEDRICK TYLER 786.2 COUGH 03/26/2012 ROJAS FOUNDRY PATTERNMAKER, CEDRICK TYLER 786.2 COUGH 03/26/2012 ROJAS FOUNDRY PATTERNMAKER, CEDRICK TYLER 786.2 COUGH 03/26/2012 TEMO FOUNDRY PATTERNMAKERNICOL DardenCHRISTIE 786.2 COUGH 03/26/2012 TEMO FOUNDRY PATTERNMAKER, CHRISTIE 786.2 COUGH 03/26/2012 [facility], JEFF R 786.2 COUGH 03/26/2012 SRIRAM GONZALEZ, SIDNEY R 786.2 COUGH 03/26/2012 SRIRAM GONZALEZ, SIDNEY R 786.2 COUGH 03/26/2012 BILL SUERO APRN 786.2 COUGH 11/06/2012 V58.69 MEDICATION HIGH RISK 11/06/2012 ROJAS FOUNDRY PATTERNMAKER, CEDRICK TYLER V58.69 MEDICATION HIGH RISK 11/06/2012 ROJAS FOUNDRY PATTERNMAKER, CEDRICK TYLER V58.69 MEDICATION HIGH RISK 11/06/2012 ROJAS FOUNDRY PATTERNMAKER, CEDRICK TYLER V58.69 MEDICATION HIGH RISK 11/06/2012 ROJAS FOUNDRY PATTERNMAKER, CEDRICK TYLER V58.69 MEDICATION HIGH RISK 11/06/2012 ROJAS FOUNDRY PATTERNMAKER, CEDRICK TYLER V58.69 MEDICATION HIGH RISK 11/06/2012 ROJAS FOUNDRY PATTERNMAKER, CEDRICK TYLER V58.69 MEDICATION HIGH RISK 11/06/2012 TEMO FOUNDRY PATTERNMAKER, CHRISTIE V58.69 MEDICATION HIGH RISK 11/06/2012 TEMO FOUNDRY PATTERNMAKER, CHRISTIE V58.69 MEDICATION HIGH RISK 11/06/2012 [facility], JEFF R V58.69 MEDICATION HIGH RISK 11/06/2012 SRIRAM FOUNDRY PATTERNMAKER, SIDNEY R V58.69 MEDICATION HIGH RISK 11/06/2012 [...] 564.1 IRRITABLE BOWEL SYNDROME 11/22/2012 AIMEE BARNES [facility], ALI FACP CCDS Ot 780.2 SYNCOPE AND COLLAPSE 11/22/2012 AIMEE BARNES [facility] Ot 780.79 OTH MALAISE FATIGUE 11/22/2012 AIMEE BARNES [facility], [facility] FACP CCDS Ot 794.31 ABNORM ELECTROCARDIOGRAM 11/22/2012 AIMEE BARNES [facility], [facility] CCDS Ot V58.69 OTH MED,LT,CURRENT USE 12/04/2012 [...] Ot E888.9 FALL NOS 09/21/2013 FAMILIA ELISE FOUNDRY PATTERNMAKER Ot 427.89 CARDIAC DYSRHYTHMIAS NEC 09/21/2013 FAMILIA ELISE FOUNDRY PATTERNMAKER Ot 780.2 SYNCOPE AND COLLAPSE 11/01/2013 MARY [...] MARY Hudson Ot 493.90 ASTHMA, UNSPECIFIED 11/01/2013 ZAHRAA BARNES, [...] CHRISTIE PLASCENCIA APRN 314.00 ADHD INATTENTIVE 04/01/2014 [facility], JEFF R 314.00 ADHD INATTENTIVE 04/01/2014 SIDNEY BHATIA APRN R 314.00 ADHD INATTENTIVE 04/01/2014 SIDNEY BHATIA APRN R 314.00 ADHD INATTENTIVE 04/15/2014 HOMERO BARNES, HARI Mathew Ot 780.39 OTHER CONVULSIONS 04/15/2014 HARI VALENTIN MD Ot 787.01 NAUSEA WITH VOMITING 04/15/2014 Ot 625.9 04/15/2014 Ot V88.01 04/15/2014 Ot 625.9 04/15/2014 Ot 789.07 04/15/2014 BLANE BARR MD Ot 780.39 05/25/2014 [facility], JEFF R 296.31 MO DEPRESSIVE RECURRENT MILD 05/25/2014 SIDNEY BHATIA APRN R 296.31 MO DEPRESSIVE RECURRENT MILD 05/25/2014 SIDNEY BHATIA APRN R 296.31 MO DEPRESSIVE RECURRENT MILD 08/18/2014 SRIRAM FOUNDRY PATTERNMAKER, SIDNEY R 388.70 OTALGIA UNSPECIFIED 08/18/2014 SRIRAM FOUNDRY PATTERNMAKER, SIDNEY R 521.01 DENTAL CARIES LIMITED TO ENAMEL 08/18/2014 SRIRAM FOUNDRY PATTERNMAKER, SIDNEY R 388.70 OTALGIA UNSPECIFIED 08/18/2014 SRIRAM FOUNDRY PATTERNMAKER, SIDNEY R 521.01 DENTAL CARIES LIMITED TO ENAMEL 08/25/2014 SRIRAM FOUNDRY PATTERNMAKER, SIDNEY R 724.2 LUMBAGO 08/25/2014 SRIRAM FOUNDRY PATTERNMAKER, SIDNEY R 724.2 LUMBAGO 09/10/2014 SRIRAM DURANN, [...] 08/09/2015 Ot 625.9 08/09/2015 Ot 789.07 08/09/2015 CORNTEY BARNES, BLANE K Ot 780.39 08/09/2015 IRENE MCKEON MD Ot M54.5 09/08/2015 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LIGHT ENDS RECOVERY Ot E87.6 10/23/2015 FAMILIA ELISE FOUNDRY PATTERNMAKER Ot D72.829 ELEVATED WHITE BLOOD CELL COUNT, UNSPECI 10/23/2015 FAMILIA ELISE FOUNDRY PATTERNMAKER Ot R51 HEADACHE 10/24/2015 FAMILIA ELISE FOUNDRY PATTERNMAKER Ot D72.829 ELEVATED WHITE BLOOD CELL COUNT, UNSPECI 10/24/2015 FAMILIA ELISE FOUNDRY PATTERNMAKER Ot R51 HEADACHE 10/25/2015 FAMILIA ELISE FOUNDRY PATTERNMAKER Ot D72.829 ELEVATED WHITE BLOOD CELL COUNT, UNSPECI 10/25/2015 FAMILIA ELISE FOUNDRY PATTERNMAKER Ot R51 HEADACHE 10/30/2015 ZAHRAA BARNES, MARY T Ot G43.909 MIGRAINE, UNSP, NOT INTRACTABLE, WITHOUT 10/30/2015 ZARHAA BARNES, MARY T Ot Z53.21 PROC/TRTMT NOT [...] NAUSEA WITH VOMITING, UNSPECIFIED 01/31/2016 FAMILIA ELISE FOUNDRY PATTERNMAKER Ot E87.6 HYPOKALEMIA 01/31/2016 FAMILIA ELISE FOUNDRY PATTERNMAKER Ot R10.30 LOWER ABDOMINAL PAIN, UNSPECIFIED 01/31/2016 FAMILIA ELISE FOUNDRY PATTERNMAKER Ot R11.2 NAUSEA WITH VOMITING, UNSPECIFIED 02/01/2016 FAMILIA ELISE FOUNDRY PATTERNMAKER Ot E87.6 HYPOKALEMIA 02/01/2016 FAMILIA ELISE FOUNDRY PATTERNMAKER Ot R10.30 LOWER ABDOMINAL PAIN, UNSPECIFIED 02/01/2016 FAMILIA ELISE FOUNDRY PATTERNMAKER Ot R11.2 NAUSEA WITH VOMITING, UNSPECIFIED 02/02/2016 FAMILIA ELISE FOUNDRY PATTERNMAKER Ot E87.6 HYPOKALEMIA 02/02/2016 FAMILIA ELISE FOUNDRY PATTERNMAKER Ot R10.30 LOWER ABDOMINAL PAIN, UNSPECIFIED 02/02/2016 FAMILIA ELISE FOUNDRY PATTERNMAKER Ot R11.2 NAUSEA WITH VOMITING, UNSPECIFIED 07/23/2017 Ot 625.9 FEM GENITAL SYMPTOMS NOS 07/23/2017 Ot 789.07 ABDOMINAL PAIN, GENERALIZED 07/23/2017 BLANE BARR MD Ot 780.39 OTHER CONVULSIONS 07/23/2017 IRENE MCKEON MD Ot M54.5 LOW BACK PAIN 07/23/2017 PENNY ALMAZAN DO Ot Z01.818 ENCOUNTER FOR OTHER PREPROCEDURAL EXAMIN 07/23/2017 MADL, 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LIGHT ENDS RECOVERY Ot E87.6 HYPOKALEMIA 07/24/2017 MADL, 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[employer] RECOVERY Ot R74.8 ABNORMAL LEVELS OF OTHER SERUM ENZYMES 07/24/2017 MADL, 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[employer] RECOVERY Ot Z90.49 ACQUIRED ABSENCE OF OTHER SPECIFIED PART 07/29/2017 MADL, 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LIGHT EN[employer] RECOVERY Ot R74.8 ABNORMAL LEVELS OF OTHER SERUM ENZYMES 07/29/2017 MADL, 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LIGHT ENDS RECOVERY Ot Z90.49 ACQUIRED ABSENCE OF OTHER SPECIFIED PART 09/11/2017 MADL, 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LIGHT ENDS RECOVERY Ot R74.8 ABNORMAL LEVELS OF OTHER SERUM ENZYMES 09/11/2017 MADL, 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LIGHT ENDS RECOVERY Ot Z90.49 ACQUIRED ABSENCE OF OTHER SPECIFIED PART 09/11/2017 MADL, 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LIGHT ENDS RECOVERY Ot R74.8 ABNORMAL LEVELS OF OTHER SERUM ENZYMES 09/11/2017 MADL, 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LIGHT ENDS RECOVERY Ot Z90.49 ACQUIRED ABSENCE OF OTHER SPECIFIED PART 09/11/2017 MADL, 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LIGHT ENDS RECOVERY Ot R74.8 ABNORMAL LEVELS OF OTHER SERUM ENZYMES 09/11/2017 MADL, 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LIGHT ENDS RECOVERY Ot Z90.49 ACQUIRED ABSENCE OF OTHER SPECIFIED PART 09/11/2017 BLANE BARR MD Ot 780.39 OTHER CONVULSIONS 09/11/2017 IRENE MCKEON MD Ot M54.5 LOW BACK PAIN 09/11/2017 PENNY ALMAZAN DO Ot Z01.818 ENCOUNTER FOR OTHER PREPROCEDURAL EXAMIN 09/11/2017 MADL, 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LIGHT ENDS RECOVERY Ot E87.6 HYPOKALEMIA 09/11/2017 MADL, 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LIGHT ENDS RECOVERY Ot R74.8 ABNORMAL LEVELS OF OTHER SERUM ENZYMES 09/11/2017 MADL, 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LIGHT ENDS RECOVERY Ot Z90.49 ACQUIRED ABSENCE OF OTHER SPECIFIED PART 10/17/2017 MADL, 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LIGHT ENDS RECOVERY Ot R74.8 ABNORMAL LEVELS OF OTHER SERUM ENZYMES 10/17/2017 MADL, 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LIGHT ENDS RECOVERY Ot Z90.49 ACQUIRED ABSENCE OF OTHER SPECIFIED PART 10/17/2017 MADL, 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LIGHT ENDS RECOVERY Ot R74.8 ABNORMAL LEVELS OF OTHER SERUM ENZYMES 10/17/2017 MADL, 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[employer] Ot Z90.49 ACQUIRED ABSENCE OF OTHER SPECIFIED PART 01/12/2018 Ot F32.9 MAJOR DEPRESSIVE DISORDER, SINGLE EPISOD 01/12/2018 Ot F41.9 ANXIETY DISORDER, UNSPECIFIED 01/12/2018 Ot G40.909 EPILEPSY, UNSP, NOT INTRACTABLE, WITHOUT 01/12/2018 Ot J45.909 UNSPECIFIED ASTHMA, UNCOMPLICATED 01/12/2018 Ot K02.9 DENTAL CARIES, UNSPECIFIED 01/12/2018 Ot R51 HEADACHE 01/12/2018 Ot [...] OTHER PREPROCEDURAL EXAMIN 01/22/2018 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, 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[employer] Ot E87.6 HYPOKALEMIA 01/22/2018 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, 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[employer] Ot R74.8 ABNORMAL LEVELS OF OTHER SERUM ENZYMES 01/22/2018 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, 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[employer] Ot Z90.49 ACQUIRED ABSENCE OF OTHER SPECIFIED PART 05/15/2018 Ot F32.9 MAJOR DEPRESSIVE DISORDER, SINGLE EPISOD 05/15/2018 Ot F41.9 ANXIETY DISORDER, UNSPECIFIED 05/15/2018 Ot G40.909 EPILEPSY, UNSP, NOT INTRACTABLE, WITHOUT 05/15/2018 Ot J45.909 UNSPECIFIED ASTHMA, UNCOMPLICATED 05/15/2018 Ot K02.9 DENTAL CARIES, UNSPECIFIED 05/15/2018 Ot R51 HEADACHE 05/15/2018 Ot [...] Ot F41.9 ANXIETY DISORDER, UNSPECIFIED 08/11/2018 PAULA COLINDRES MD Ot G40.909 EPILEPSY, UNSP, NOT INTRACTABLE, [...] SADAF Ot Z98.51 TUBAL LIGATION STATUS 08/14/2018 JILLIAN SADAF Ot Z98.890 OTHER SPECIFIED POSTPROCEDURAL STATES 08/18/2018 JOVAN WALSHIS Ot A08.4 VIRAL INTESTINAL INFECTION, UNSPECIFIED 08/18/2018 KATHIEHAYES SADAF Ot F32.9 MAJOR DEPRESSIVE DISORDER, SINGLE EPISOD 08/18/2018 KATHIEHAYES SADAF Ot F41.9 ANXIETY DISORDER, UNSPECIFIED 08/18/2018 JILLIAN SADAF Ot G40.909 EPILEPSY, UNSP, NOT INTRACTABLE, WITHOUT 08/18/2018 KATHIEHAYES SADAF Ot J45.909 UNSPECIFIED ASTHMA, UNCOMPLICATED 08/18/2018 JILLIAN SADAF Ot K58.9 IRRITABLE BOWEL SYNDROME WITHOUT DIARRHE 08/18/2018 KATHIEHAYES SADAF Ot R11.2 NAUSEA WITH VOMITING, UNSPECIFIED 08/18/2018 KATHIEHAYES SADAF Ot Z85.038 PERSONAL HISTORY OF MALIGNANT NEOPLASM O 08/18/2018 JILLIAN SADAF Ot Z85.41 PERSONAL HISTORY OF MALIGNANT NEOPLASM O 08/18/2018 JILLIAN SADAF Ot Z87.19 PERSONAL HISTORY OF OTHER DISEASES OF TH 08/18/2018 JILLIAN SADAF Ot Z87.440 PERSONAL HISTORY OF URINARY (TRACT) INFE 08/18/2018 JILLIAN SADAF Ot Z88.5 ALLERGY STATUS TO NARCOTIC AGENT STATUS 08/18/2018 JILLIAN SADAF Ot Z88.6 ALLERGY STATUS TO ANALGESIC AGENT STATUS 08/18/2018 JILLIAN SADAF Ot Z88.8 ALLERGY STATUS TO OTH DRUG/MEDS/BIOL SUB 08/18/2018 JILLIAN SADAF Ot Z90.710 ACQUIRED ABSENCE OF BOTH CERVIX AND UTER 08/18/2018 JILLIAN SADAF Ot Z98.51 TUBAL LIGATION STATUS 08/18/2018 JILLIAN SADAF Ot Z98.890 OTHER SPECIFIED POSTPROCEDURAL STATES 09/05/2018 JENS BARNES, PAULA J Ot A08.4 VIRAL INTESTINAL INFECTION, UNSPECIFIED 09/05/2018 PAULA COLINDRES MD J Ot F32.9 MAJOR DEPRESSIVE DISORDER, SINGLE EPISOD 09/05/2018 PAULA COLINDRES MD J Ot F41.9 ANXIETY DISORDER, UNSPECIFIED 09/05/2018 PAULA COLINDRES MD J Ot G40.909 EPILEPSY, UNSP, NOT INTRACTABLE, WITHOUT 09/05/2018 PAULA COLINDRES MD J Ot J45.909 UNSPECIFIED ASTHMA, UNCOMPLICATED 09/05/2018 PAULA COLINDRES MD Ot K58.9 IRRITABLE BOWEL SYNDROME WITHOUT DIARRHE 09/05/2018 PAULA COLINDRES MD Ot R11.2 NAUSEA WITH VOMITING, UNSPECIFIED 09/05/2018 PAULA COLINDRES MD Ot Z85.038 PERSONAL HISTORY OF MALIGNANT NEOPLASM O 09/05/2018 PAULA COLINDRES MD Ot Z85.41 PERSONAL HISTORY OF MALIGNANT NEOPLASM O 09/05/2018 PAULA COLINDRES MD Ot Z86.19 PERSONAL HISTORY OF OTHER INFECTIOUS AND 09/05/2018 PAULA COLINDRES MD Ot Z87.440 PERSONAL HISTORY OF URINARY (TRACT) INFE 09/05/2018 PAULA COLINDRES MD Ot Z88.5 ALLERGY STATUS TO NARCOTIC AGENT STATUS 09/05/2018 PAULA COLINDRES MD Ot Z88.6 ALLERGY STATUS TO ANALGESIC AGENT STATUS 09/05/2018 PAULA COLINDRES MD Ot Z88.8 ALLERGY STATUS TO OTH DRUG/MEDS/BIOL SUB 09/05/2018 PAULA COLINDRES MD Ot Z90.710 ACQUIRED ABSENCE OF BOTH CERVIX AND UTER 09/05/2018 PAULA COLINDRES MD Ot Z98.51 TUBAL LIGATION STATUS 09/05/2018 PAULA COLINDRES MD Ot Z98.890 OTHER SPECIFIED POSTPROCEDURAL STATES 09/09/2018 SADAF WALSH Ot F32.9 MAJOR DEPRESSIVE DISORDER, SINGLE EPISOD 09/09/2018 SADAF WALSH Ot F41.9 ANXIETY DISORDER, UNSPECIFIED 09/09/2018 SADAF WALSH Ot G40.909 EPILEPSY, UNSP, NOT INTRACTABLE, WITHOUT 09/09/2018 JOVAN WALSHIS Ot J45.909 UNSPECIFIED ASTHMA, UNCOMPLICATED 09/09/2018 SADAF WALSH Ot K58.9 IRRITABLE BOWEL SYNDROME WITHOUT DIARRHE 09/09/2018 SADAF WALSH Ot N39.0 URINARY TRACT INFECTION, SITE NOT SPECIF 09/09/2018 SADAF WALSH Ot R11.10 VOMITING, UNSPECIFIED 09/09/2018 SADAF WALSH Ot Z85.038 PERSONAL HISTORY OF MALIGNANT NEOPLASM O 09/09/2018 SADAF WALSH Ot Z85.41 PERSONAL HISTORY OF MALIGNANT NEOPLASM O 09/09/2018 BERNOT, SADAF Ot Z86.19 PERSONAL HISTORY OF OTHER INFECTIOUS AND 09/09/2018 JOVAN WALSHIS Ot Z87.440 PERSONAL HISTORY OF URINARY (TRACT) INFE 09/09/2018 SADAF WALSH Ot Z87.448 PERSONAL HISTORY OF OTHER DISEASES OF UR 09/09/2018 JOVAN WALSHIS Ot Z88.5 ALLERGY STATUS TO NARCOTIC AGENT STATUS 09/09/2018 JOVAN WALSHIS Ot Z88.6 ALLERGY STATUS TO ANALGESIC AGENT STATUS 09/09/2018 JOVAN WALSHIS Ot Z88.8 ALLERGY STATUS TO OTH DRUG/MEDS/BIOL SUB 09/09/2018 JOVAN WALSHIS Ot Z90.710 ACQUIRED ABSENCE OF BOTH CERVIX AND UTER 09/09/2018 SADAF WALSH Ot Z98.51 TUBAL LIGATION STATUS 09/11/2018 SADAF WALSH Ot F32.9 MAJOR DEPRESSIVE DISORDER, SINGLE EPISOD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
[2018-11-18 20:57] LABS: ALANINE AMINOTRANSFERASE 27 U/L (0-55); ALBUMIN 4.4 GM/DL (3.2-4.5); ALKALINE PHOSPHATASE 102 U/L (40-136); AMYLASE 24 U/L (25-125); BILIRUBIN,TOTAL 0.3 MG/DL (0.1-1.0); BUN/CREATININE RATIO 5; CALCIUM 10.3 MG/DL (8.5-10.1); CARBON DIOXIDE 26 MMOL/L (21-32); CHLORIDE 105 MMOL/L (98-107); CREATININE SERUM 0.99 MG/DL (0.60-1.30); GFR ESTIMATED > 60; GLUCOSE 137 MG/DL (70-105); LIPASE 49 U/L (8-78); MAGNESIUM 2.1 MG/DL (1.8-2.4); POTASSIUM 3.3 MMOL/L (3.6-5.0); SODIUM 148 MMOL/L (135-145); TOTAL PROTEIN 7.7 GM/DL (6.4-8.2)
[2018-11-18] MEDS ORDERED: PROMETHAZINE INJ 25 MG/ML (PHENERGAN) AMP IVP STA (21:08)
[2018-11-18] MEDS ORDERED: diphenhydrAMINE 50 MG/ML INJ (BENADRYL) IVP ONE ×2 (21:15→22:45)
[2018-11-18] MEDS ORDERED: SCOPOLAMINE 1.5 MG (TRANSDERM-SCOP) PATCH TD ONE (21:15)
[2018-11-18] MEDS ORDERED: NS 100 ML (IVPB) BAG IV ONE (22:00)
[2018-11-18] MEDS ORDERED: HOLD METFORMIN - RECEIVED CONTRAST 20 ML VIAL IV SCH (22:00)
[2018-11-18] MEDS ORDERED: IOHEXOL 350 MG/ML 100 ML (OMNIPAQUE 350) VIAL IV ONE (22:00)
--- NOTE | 2018-11-18 22:15 | ED GI ---
General Chief Complaint: Abdominal/GI Problems Stated Complaint: VOMITING,ABD CRAMPING Nursing Triage Note: PT COMPLAINING OF LEFT LOWER ABD PAIN THAT RADIATES TO LEFT FLANK THAT STARTED EARLY THIS MORNING. PT HAS BEEN VOMITING SINCE THIS MORNING Sepsis Screen: No Definite Risk Source of Information: Patient History of Present Illness Date Seen by Provider: Nov 18, 2018 Time Seen by Provider: 20:33 Initial Comments PT ARRIVES VIA POV FROM HOME C/O NAUSEA/VOMITING AND ABDOMINAL CRAMPING SINCE THIS MORNING HAS VOMITED X 6-7, BUT MOSTLY DRY HEAVES C/O GENERALIZED ABDOMINAL CRAMPING AND BACK PAIN NO DIARRHEA NO FEVER NO PROBLEMS URINATING NO SICK CONTACTS OR SUSPICIOUS FOODS PT WITH MULTITUDE OF VISITS, WITH MANY FOR THIS SAME COMPLAINT THIS IS A CHRONIC COMPLAINT FOR YEARS, HAS BEEN TO A MULTITUDE OF PROVIDERS OVER THE YEARS PT HAS HAD 6 VISITS SINCE AUGUST 2018--ALL FOR THIS SAME COMPLAINT. LAST VISIT 10/01/18 PT SMOKES MARIJUANA ON A DAILY/REGULAR BASIS PCP: MARIA LUZ-BETSY, [place] ALVES Allergies and Home Medications Allergies Coded Allergies: morphine (Verified Allergy, Unknown, CAUSES "REBOUND HEADACHES", 08/20/13) baclofen (Verified Adverse Reaction, Severe, 06/13/15) PATIENT UNAWARE OF REACTION BUT WAS HOSPITALIZED AFTER TAKING MEDICATION AND WAS TOLD IT WAS A REACTION DUE TO THE MEDICATION SHE TOOK. meloxicam (Verified Adverse Reaction, Severe, 06/13/15) PATIENT UNAWARE OF REACTION BUT WAS HOSPITALIZED AFTER TAKING MEDICATION AND WAS TOLD IT WAS A REACTION DUE TO THE MEDICATION SHE TOOK. NSAIDS (Non-Steroidal Anti-Inflamma (Verified Adverse Reaction, Mild, have IBS and avoid NSAIDS, 12/04/12) Home Medications Dicyclomine HCl 20 Mg Tablet, 20 MG PO Q6H Prescribed by: CHANTEL MAYORGA on 11/18/18 2325 Dicyclomine Hcl 20 Mg Tablet, 20 MG PO QID, (Reported) Famotidine 20 Mg Tablet, 20 MG PO BID Prescribed by: MARY BENTLEY on 10/01/18 0640 Hyoscyamine Sulfate 0.125 Mg Tab.subl, 0.125 MG SL Q4H PRN for CRAMPS Prescribed by: SADAF WALSH on 08/12/18 1844 Nitrofurantoin Monohyd/M-Cryst 100 Mg Capsule, 1 TAB PO BID Prescribed by: SADAF WALSH on 09/09/18 1618 Ondansetron 8 Mg Tab.rapdis, 8 MG PO Q6H PRN for NAUSEA/VOMITING Prescribed by: FAMILIA ELISE on 01/31/16 1911 Ondansetron 4 Mg Tab.rapdis, 4 MG PO Q6H PRN for NAUSEA/VOMITING-1ST LINE Prescribed by: PAULA COLINDRES on 08/11/18 1232 Ondansetron 4 Mg Tab.rapdis, 4 MG PO Q6H PRN for NAUSEA/VOMITING Prescribed by: PAULA COLINDRES on 09/05/18 0534 Ondansetron 8 Mg Tab.rapdis, 8 MG PO Q6H Prescribed by: CHANTEL MAYORGA on 11/18/18 232 Promethazine HCl 25 Mg Tablet, 25 MG PO Q6H PRN for NAUSEA/VOMITING Prescribed by: PAULA COLINDRES on 08/11/18 1232 Promethazine HCl 25 Mg Supp.rect, 25 MG RC Q6H Prescribed by: PAULA COLINDRES on 09/05/18 0534 Promethazine HCl 25 Mg Tablet, 25 MG PO Q6H PRN for NAUSEA/VOMITING Prescribed by: SADAF WALSH on 09/09/18 1605 Promethazine HCl 25 Mg Tablet, 25 MG PO Q8H PRN for NAUSEA/VOMITING Prescribed by: MARY BENTLEY on 10/01/18 0640 Promethazine HCl 25 Mg Supp.rect, 25 MG RC Q4H Prescribed by: CHANTEL MAYORGA on 11/18/182324 Propranolol Hcl 10 Mg Tablet, 40 MG PO DAILY, (Reported) Scopolamine 1 Each Patch.td72, 1 EACH TD Q72 HOURS Prescribed by: CHANTEL MAYORGA on 11/18/18 232 Patient Home Medication List Home Medication List Reviewed: Yes Review of Systems Review of Systems Constitutional: No dizziness, No fever Respiratory: No Symptoms Reported Cardiovascular: No Symptoms Reported Gastrointestinal: See HPI, Abdominal Pain; Denies Diarrhea; Nausea, Vomiting Genitourinary: No Symptoms Reported Musculoskeletal: see HPI, back pain Skin: no symptoms reported Psychiatric/Neurological: Anxiety Endocrine: No Symptoms Reported Hematologic/Lymphatic: No Symptoms Reported Past Xtvyxtb-Mzptgs-Jyqchu Hx Patient Social History Alcohol Use: Denies Use Recreational Drug Use: Yes (THC) Drug of Choice: Marijuana Smoking Status: Never a Smoker 2nd Hand Smoke Exposure: No Recent Foreign Travel: No Contact w/Someone Who Travel: No Recent Infectious Disease Expo: No Recent Hopitalizations: No Immunizations Up To Date Tetanus Booster (TDap): More than 5yrs PED Vaccines UTD: No Date of Pneumonia Vaccine: Mar 03, 2014 Date of Influenza Vaccine: Mar 03, 2015 Seasonal Allergies Seasonal Allergies: No Past Medical History Surgeries: Yes (COLONOSCOPY; HYST/BSO 2005; BLADDER SLING PLACED/LATER REMOVED; CARDIAC CATH 2012-NORMAL) Bladder Surgery, Gallbladder, 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, Oophorectomy, Tubal Ligation Respiratory: Yes Asthma Currently Using CPAP: No Currently Using BIPAP: No Cardiac: No Neurological: Yes ("SEIZURE WITH LOW BP" PER PT) Headaches /Migraines, Seizure Disorder 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 Disorders: Yes (HYST 2005--NO PHYSICIAN DOCUMENTATION OF ANY KIND OF CANCER) 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 Disorders: Denies GAR[employer] History: 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, Menopausal Sexually Transmitted Disease: Yes (HPV) HIV/AIDS: No Genitourinary: Yes Bladder Infection, UTI-Chronic Gastrointestinal: Yes Irritable Bowel Musculoskeletal: Yes Chronic Back Pain Endocrine: No HEENT: Yes (POOR DENTITION) Loss of Vision: Denies Cancer: No (NO PHYSICIAN DOCUMENTATION / VERIFICATION OF ANY KIND OF CANCER) Psychosocial: Yes Anxiety, Depression Integumentary: No Blood Disorders: No Adverse Reaction/Blood Tranf: No Family Medical History Diabetes mellitus 19 FATHER FHx: brain tumor 19 MOTHER HPV infection G8 SISTER No Family History of: AIDS Abdominal aortic aneurysm Madi's disease Alcoholism Alzheimer's disease Aphasia Arthritis Asthma Cancer of mouth Cardiovascular disease Cataracts Colon cancer Completed stroke Congenital disease Congenital heart disease Coronary thrombosis Cystic fibrosis Deafness or hearing loss Dementia Drug abuse Dysphasia Fibrocystic disease of breast Gastroenteritis Glaucoma Headache disorder Hypercholesterolemia Hypertension Infertility Kidney disease Myocardial infarction Neoplasm Not obtainable due to adoption Osteoporosis Parkinson's disease Prostate cancer Psychosocial problem Respiratory disorder Seizure disorder Severe allergy Thyroid disease Tuberculosis Visual disorder Heart Disease, Hypertension Physical Exam Vital Signs Vital Signs - First Documented 11/18/18 20:25 Temp 98.2 Pulse 118 Resp 18 B/P (MAP) 176/115 (135) Pulse Ox 97 O2 Delivery Room Air Capillary Refill : Less Than 3 Seconds Height/Weight/BMI Height: 5'5.00" Weight: 178lbs. 9.0oz. [id number]; 27.60 BMI Method:Stated General Appearance: obese, other (PT VERY DRAMATIC, WITH CONSTANT, VERY HARSH/LOUD FORCED COUGHING/GAGGING/ DRY HEAVING. NO ACTUAL VOMITING AT ANY TIME--SPITTING UP SALIVA. ) HEENT: other (EXTENSIVE DENTAL DECAY) Respiratory: normal breath sounds, no respiratory distress, no accessory muscle use Cardiovascular: regular rate, rhythm, no murmur Gastrointestinal: soft, tenderness (DIFFUSE) Extremities: normal inspection, no pedal edema, normal capillary refill Back: normal inspection Neurologic/Psychiatric: allergy physician II-XII nml as tested, no motor/sensory deficits, alert, oriented x 3 Skin: normal color, warm/dry, tattoos/piercings (MULTIPLE TATTOOS) Progress/Results/Core Measures Results/Orders Lab Results Laboratory Tests Test 11/18/18 20:33 11/18/18 22:29 Range/Units White Blood Count 10.9 4.3-11.0 10^3/uL Red Blood Count 4.67 4.35-5.85 10^6/uL Hemoglobin 13.1 11.5-16.0 G/DL Hematocrit 40 35-52 % Mean Corpuscular Volume 87 80-99 FL Mean Corpuscular Hemoglobin 28 25-34 PG Mean Corpuscular Hemoglobin Concent 32 32-36 G/DL Red Cell Distribution Width 14.9 H 10.0-14.5 % Platelet Count 378 130-400 10^3/uL Mean Platelet Volume 9.2 7.4-10.4 FL Neutrophils (%) (Auto) 81 H 42-75 % Lymphocytes (%) (Auto) 12 12-44 % Monocytes (%) (Auto) 7 0-12 % Eosinophils (%) (Auto) 0 0-10 % Basophils (%) (Auto) 0 0-10 % Neutrophils # (Auto) 8.9 H 1.8-7.8 X 10^3 Lymphocytes # (Auto) 1.3 1.0-4.0 X 10^3 Monocytes # (Auto) 0.7 0.0-1.0 X 10^3 Eosinophils # (Auto) 0.0 0.0-0.3 10^3/uL Basophils # (Auto) 0.0 0.0-0.1 10^3/uL Sodium Level 148 H 135-145 MMOL/L Potassium Level 3.3 L 3.6-5.0 MMOL/L Chloride Level 105 98-107 MMOL/L Carbon Dioxide Level 26 21-32 MMOL/L Anion Gap 17 H 5-14 MMOL/L Blood Urea Nitrogen 5 L 7-18 MG/DL Creatinine 0.99 0.60-1.30 MG/DL Estimat Glomerular Filtration Rate > 60 BUN/Creatinine Ratio 5 Glucose Level 137 H 70-105 MG/DL Calcium Level 10.3 H 8.5-10.1 MG/DL Corrected Calcium 10.0 8.5-10.1 MG/DL Magnesium Level 2.1 1.8-2.4 MG/DL Total Bilirubin 0.3 0.1-1.0 MG/DL Aspartate Amino Transf (AST/SGOT) 22 5-34 U/L Alanine Aminotransferase (ALT/SGPT) 27 0-55 U/L Alkaline Phosphatase 102 40-136 U/L Total Protein 7.7 6.4-8.2 GM/DL Albumin 4.4 3.2-4.5 GM/DL Amylase Level 24 L 25-125 U/L Lipase 49 8-78 U/L Serum Test, Qualitative NEGATIVE NEGATIVE Serum Alcohol < 10 <10 MG/DL Urine Color YELLOW Urine Clarity CLEAR Urine pH 7 5-9 Urine Specific [place] 1.005 L 1.016-1.022 Urine Protein 1+ H NEGATIVE Urine Glucose (UA) NEGATIVE NEGATIVE Urine Ketones NEGATIVE NEGATIVE Urine Nitrite NEGATIVE NEGATIVE Urine Bilirubin NEGATIVE NEGATIVE Urine Urobilinogen NORMAL NORMAL MG/DL Urine Leukocyte Esterase 1+ H NEGATIVE Urine RBC (Auto) NEGATIVE NEGATIVE Urine RBC NONE /HPF Urine WBC 5-10 H /HPF Urine Squamous Epithelial Cells 10-25 H /HPF Urine Crystals NONE /LPF Urine Bacteria FEW H /HPF Urine Casts NONE /LPF Urine Mucus SMALL H /LPF Urine Culture Indicated YES Urine Opiates Screen NEGATIVE NEGATIVE Urine Oxycodone Screen NEGATIVE NEGATIVE Urine Methadone Screen NEGATIVE NEGATIVE Urine Propoxyphene Screen NEGATIVE NEGATIVE Urine Barbiturates Screen NEGATIVE NEGATIVE Ur Tricyclic Antidepressants Screen NEGATIVE NEGATIVE Urine Phencyclidine Screen NEGATIVE NEGATIVE Urine Amphetamines Screen NEGATIVE NEGATIVE Urine Methamphetamines Screen NEGATIVE NEGATIVE Urine Benzodiazepines Screen NEGATIVE NEGATIVE Urine Cocaine Screen NEGATIVE NEGATIVE Urine Cannabinoids Screen POSITIVE H NEGATIVE My Orders Orders - CHANTEL MAYORGA DO Ed Iv/Invasive Line Start (11/18/18 20:33) Monitor-Rhythm Ecg Trace Only (11/18/18 20:33) Amylase (11/18/18 20:33) Cbc With Automated Diff (11/18/18 20:33) Comprehensive Metabolic Panel (11/18/18 20:33) Hcg,Qualitative Serum (11/18/18 20:33) Lipase (11/18/18 20:33) Magnesium (11/18/18 20:33) Ua Culture If Indicated (11/18/18 20:33) Ondansetron Injection (Zofran Injectio (11/18/18 20:45) Hyoscyamine Sl Tablet (Levsin Sl Tablet) (11/18/18 20:45) Ed Iv/Invasive Line Start (11/18/18 20:33) Lactated Ringers (Lr 1000 Ml Iv Solution (11/18/18 20:33) Scopolamine Patch (Transderm-Scop Patch) (11/18/18 21:15) Ct Abdomen/Pelvis W (11/18/18 21:08) Acute Abd Series (11/18/18 21:08) Promethazine Injection (Phenergan Injec (11/18/18 21:08) Diphenhydramine Injection (Benadryl Inje (11/18/18 21:15) Iohexol Injection (Omnipaque 350 Mg/Ml 1 (11/18/18 22:00) Received Contrast (Hold Metformin- Contr (11/18/18 22:00) Ns (Ivpb) (Sodium Chloride 0.9% Ivpb Bag (11/18/18 22:00) Ed Iv/Invasive Line Start (11/18/18 21:59) Ed Iv/Invasive Line Start (11/18/18 21:59) Lactated Ringers (Lr 1000 Ml Iv Solution (11/18/18 21:59) Promethazine Injection (Phenergan Injec (11/18/18 22:45) Diphenhydramine Injection (Benadryl Inje (11/18/18 22:45) Alcohol (11/18/18 22:39) Drug Screen Stat (Urine) (11/18/18 22:39) Urine Culture (11/18/18 22:29) Rx-Hyoscyamine Tab (Rx-Levsin Sl) (11/18/18 23:11) Rx-Promethazine Hcl (Rx-Phenergan Supp) (11/18/18 23:11) Rx-Ondansetron Po (Rx-Zofran Po) (11/18/18 23:11) Dicyclomine Injection (Bentyl Injection) (11/18/18 23:15) Medications Given in ED Current Medications Medications Dose Ordered Sig/Judi Route Start Time Stop Time Status Last Admin Dose Admin Dicyclomine HCl 20 mg ONCE ONCE IM 11/18/18 23:15 11/18/18 23:16 DC 11/19/18 00:07 20 MG Diphenhydramine HCl 25 mg ONCE ONCE IVP 11/18/18 21:15 11/18/18 21:16 DC 11/18/18 21:14 25 MG Diphenhydramine HCl 50 mg ONCE ONCE IVP 11/18/18 22:45 11/18/18 22:46 DC 11/18/18 23:00 50 MG Hyoscyamine Sulfate 0.25 mg ONCE ONCE SL 11/18/18 20:45 11/18/18 20:46 DC 11/18/18 21:40 0.25 MG Iohexol 100 ml ONCE ONCE IV 11/18/18 22:00 11/18/18 22:01 DC 11/18/18 22:05 100 ML Lactated Ringer's 1,000 ml @ 0 mls/hr Q0M ONCE IV 11/18/18 20:33 11/18/18 20:37 DC 11/18/18 20:41 999 MLS/HR Lactated Ringer's 1,000 ml @ 0 mls/hr Q0M ONCE IV 11/18/18 21:59 11/18/18 22:01 DC 11/18/18 22:35 999 MLS/HR Ondansetron HCl 4 mg ONCE ONCE IVP 11/18/18 20:45 11/18/18 20:46 DC 11/18/18 20:41 4 MG Promethazine HCl 25 mg ONCE ONCE IVP 11/18/18 22:45 11/18/18 22:46 DC 11/18/18 23:00 25 MG Scopolamine 1.5 mg ONCE ONCE TD 11/18/18 21:15 11/18/18 21:16 DC 11/18/18 21:15 1.5 MG Sodium Chloride 100 ml ONCE ONCE IV 11/18/18 22:00 11/18/18 22:01 DC 11/18/18 22:05 80 ML Vital Signs/I&O 11/18/18 11/19/18 20:25 00:05 Temp 98.2 Pulse 118 105 Resp 18 20 B/P (MAP) 176/115 (135) 150/110 (123) Pulse Ox 97 99 O2 Delivery Room Air Room Air 11/19/18 00:00 Intake Total 2000 ml Balance 2000 ml Blood Pressure Mean: 135 Progress Progress Note : Progress Note SYMPTOMS IMPROVED AT DISMISSAL PT HAD NO VOMITING AT ANY TIME--ONLY FORCED GAGGING AND DRY HEAVES, WHICH HAVE STOPPED AT DISMISSAL PT ADVISED OF NEED TO STOP USING MARIJUANA THIS CONTRIBUTES TO THIS PROBLEM Diagnostic Imaging Comments ABDOMEN XRAYS--NO ACUTE PROCESS, PENDING RADIOLOGIST REVIEW CT ABDOMEN/PELVIS--NO ACUTE PROCESS, PER [facility] VIA FAX AT 1187 Reviewed: Reviewed by Me Departure Impression Primary Impression: Nausea and vomiting Additional Impression: Marijuana use, continuous Disposition: 01 HOME, SELF-CARE Condition: Improved Departure-Patient Inst. Referrals: [facility] (PCP/Family) Primary Care Physician Patient Instructions: Nausea and Vomiting, Adult (DC), Marijuana Use and Addiction (DC) Add. Discharge Instructions: CLEAR LIQUIDS, SIPS AT A TIME--WATER, BROTH, JELLO, GATORADE WHEN YOUR NAUSEA STOPS, ADD BRATS DIET TO CLEAR LIQUIDS--BANANAS, RICE, APPLESAUCE, TOAST, SALTINES LEAVE SCOPOLAMINE PATCH IN PLACE FO 3 DAYS STOP MARIJUANA!!!! FOLLOW UP WITH YOUR DR IN 1-2 DAYS IF NO BETTER All discharge instructions reviewed with patient and/or family. Voiced understa nding. Scripts Dicyclomine HCl (Dicyclomine HCl) 20 Mg Tablet 20 MG PO Q6H for Abdominal Pain, #20 TAB Prov: CHANTEL MAYORGA DO 11/18/18 Ondansetron (Ondansetron Odt) 8 Mg Tab.rapdis 8 MG PO Q6H for Nausea/Vomiting, #10 TAB Prov: MUKESHKIANAA K DO 11/18/18 Promethazine HCl (Phenergan) 25 Mg Supp.rect 25 MG RC Q4H for Nausea/Vomiting, #10 SUPP.RECT Prov: MUKESHKIANAA K DO 11/18/18 Scopolamine (Transderm-Scop) 1 Each Patch.td72 1 EACH TD Q72 HOURS for Dizziness, #3 PATCH Prov: MUKESHKIANAA K DO 11/18/18 CHANTEL MAYORGA DO Nov 18, 2018 22:15
[2018-11-18 22:32] LABS: BILIRUBIN,URINE NEGATIVE (NEGATIVE); CLARITY,URINE CLEAR; COLOR,URINE YELLOW; GLUCOSE, URINE (UA) NEGATIVE (NEGATIVE); KETONES,URINE NEGATIVE (NEGATIVE); LEUKOCYTE ESTERASE ,URINE 1+ (NEGATIVE); NITRITE,URINE NEGATIVE (NEGATIVE); PH,URINE 7 (5-9); PROTEIN,URINE 1+ (NEGATIVE); UROBILINOGEN,URINE NORMAL (NORMAL)
[2018-11-18] MEDS ORDERED: PROMETHAZINE INJ 25 MG/ML (PHENERGAN) AMP IVP ONE (22:45)
[2018-11-18 22:56] LABS: BACTERIA,URINE FEW /HPF
[2018-11-18 23:05] LABS: AMPHETAMINE SCREEN, URINE NEGATIVE (NEGATIVE); BARBITURATE SCREEN URINE NEGATIVE (NEGATIVE); BENZODIAZEPINES SCREEN URINE NEGATIVE (NEGATIVE); CANNABINOID SCREEN, URINE POSITIVE (NEGATIVE); COCAINE SCREEN URINE NEGATIVE (NEGATIVE); METHADONE STAT NEGATIVE (NEGATIVE); METHAMPHETAMINE SCREEN URINE S NEGATIVE (NEGATIVE); OPIATE SCREEN URINE NEGATIVE (NEGATIVE); OXYCODONE STAT NEGATIVE (NEGATIVE); PROPOXYPHENE STAT NEGATIVE (NEGATIVE); TRICYCLIC ANTIDEPRESSANTS SCRE NEGATIVE (NEGATIVE)
[2018-11-18] MEDS ORDERED: RX-ONDANSETRON 4 MG ODT (ZOFRAN) PPK #4 PO STA (23:11)
[2018-11-18] MEDS ORDERED: RX-HYOSCYAMINE 0.125 MG SL (LEVSIN) PPK#6 SL STA (23:11)
[2018-11-18] MEDS ORDERED: RX-PHENERGAN 25 MG SUPP PPK#3 PR STA (23:11)
[2018-11-18] MEDS ORDERED: DICYCLOMINE 10 MG/ML (BENTYL) 2 ML AMP IM ONE (23:15)
[2018-11-18] MEDS ORDERED: DICY20TA10 PO (23:25)
[2018-11-18] MEDS ORDERED: ONDA8TAB13 PO (23:25)
[2018-11-18] MEDS ORDERED: SCOP1PAT11 TD (23:25)
[2018-11-18] MEDS ORDERED: PROM25SU43 RC (23:25)
[2018-11-19 00:05] VITALS: BP 150/110
--- NOTE | 2018-11-19 07:57 | Diagnostic Imaging Report ---
PROCEDURE: CT abdomen and pelvis with contrast. TECHNIQUE: Multiple contiguous axial images were obtained through the abdomen and pelvis after administration of intravenous contrast. Auto Exposure Controls were utilized during the CT exam to meet ALARA standards for radiation dose reduction. INDICATION: Left lower abdominal pain radiating into left flank, symptoms began this morning and are accompanied by vomiting. The study compared to 08/12/2018. The liver, spleen, adrenals and pancreas unremarkable. The gallbladder is surgically absent. The adrenals negative. The kidneys are unobstructed. No ascites, abscess, hematoma or fluid collection. Lung bases and osseous structures nonacute. No change from priors. No aneurysm, adenopathy or mass. IMPRESSION: No obstructive features, inflammatory process, fluid collection or acute abnormalities. No change. Dictated by: Dictated on workstation # [id number]
--- NOTE | 2018-11-19 08:01 | Diagnostic Imaging Report ---
INDICATION: Left lower abdomen pain radiating to left flank. Abdominal pain since this morning. Vomiting. EXAMINATION: Abdomen series 11/18/2018 FINDINGS: Heart unremarkable. Pulmonary vasculature normal. Lungs and pleural spaces clear. No pneumothorax. No free air seen beneath the diaphragm. Scattered air and stool seen throughout the colon. There is contrast in the urinary collecting system and bladder consistent with recent CT. Clips in the right upper quadrant. IMPRESSION: 1. No acute process in the chest. 2. Nonobstructive bowel gas pattern incidental findings as above. Dictated by: Dictated on workstation # [id number]
== END 2018-11-19 00:05 | disposition home or self-care (01) ==
LOC: EDUNIT# 20:10 → ER 20:11
DX: R11.2 Nausea with vomiting, unspecified (principal); F12.10 Cannabis abuse, uncomplicated; J45.909 Unspecified asthma, uncomplicated; G43.909 Migraine, unspecified, not intractable, without status migrainosus; F41.9 Anxiety disorder, unspecified; F32.9 Major depressive disorder, single episode, unspecified; G40.909 Epilepsy, unspecified, not intractable, without status epilepticus; Z88.5 Allergy status to narcotic agent; Z90.710 Acquired absence of both cervix and uterus; Z95.9 Presence of cardiac and vascular implant and graft, unspecified; Z87.440 Personal history of urinary (tract) infections; Z87.448 Personal history of other diseases of urinary system; Z96.0 Presence of urogenital implants; Z82.49 Family history of ischemic heart disease and other diseases of the circulatory system; Z98.51 Tubal ligation status; Z98.890 Other specified postprocedural states; Z88.8 Allergy status to other drugs, medicaments and biological substances; Z88.6 Allergy status to analgesic agent
CPT/HCPCS: 36415; 74022; 74177; 80053; 80306; 80320; 81000; 82150; 83690; 83735; 84703; 85025; 87088; 93041; 96361; 96372; 96374; 96375; 96376

== ENCOUNTER 2018-12-16 16:57 | Emergency (ER) | payer SELFPAY ==
[~2018-12-16] VITALS: Ht 165.1 cm; Wt 83.5 kg
[~2018-12-16 16:57] MED LIST changes: +ONDA8TAB13 PO; +SCOP1PAT11 TD
[2018-12-16 17:14] LABS: BASOPHILS % (AUTO) 0 % (0-10); EOSINOPHILS % (AUTO) 0 % (0-10); HEMATOCRIT 43 % (35-52); LYMPHOCYTES # (AUTO) 2.9 X 10^3 (1.0-4.0); LYMPHOCYTES % (AUTO) 38 % (12-44); MEAN CORPUSCULAR HEMOGLOBIN 29 PG (25-34); MEAN CORPUSCULAR HGB CONC 33 G/DL (32-36); MEAN CORPUSCULAR VOLUME 86 FL (80-99); MEAN PLATELET VOLUME 8.9 FL (7.4-10.4); MONOCYTES # (AUTO) 0.7 X 10^3 (0.0-1.0); MONOCYTES % (AUTO) 8 % (0-12); NEUTROPHILS # (AUTO) 4.1 X 10^3 (1.8-7.8); NEUTROPHILS % (AUTO) 53 % (42-75); PLATELET COUNT 382 10^3/uL (130-400); RED CELL DISTRIBUTION WIDTH 15.5 % (10.0-14.5); WHITE BLOOD COUNT 7.7 10^3/uL (4.3-11.0)
--- NOTE | 2018-12-16 17:20 | ED Chest Pain ---
General Chief Complaint: Chest Pain Stated Complaint: CP Source: patient, family Exam Limitations: no limitations (PAULA COLINDRES) History of Present Illness Date Seen by Provider: Dec 16, 2018 Time Seen by Provider: 17:00 Initial Comments Patient presents to ER by private conveyance chief complaint she is woke about an hour ago from a nap with chest pain in her left chest radiating to her left shoulder. She has no history of coronary disease but she does have a history of asthma. She says that she has a history of cyclical nausea and vomiting which she thinks might be related to her use of marijuana so she stopped using it about a month ago. The last week she's been having a bout of nausea vomiting and more less not unusual for her chest pain is. She called her primary care Dr. Colton Houser and his office instructed her to come the ER. She denies any swelling in her hands or feet. She's not had any surgeries does not take control but she had a hysterectomy and has not had any recent immobilization. No history of any clotting disorders or family history of early-onset coronary disease. She's not had a cough fever chills and she's been quite constipated lately. She does have a history of anxiety however does not take any medication for it. She has a history of seizures. (PAULA COLINDRES) Allergies and Home Medications Allergies Coded Allergies: morphine (Verified Allergy, Unknown, CAUSES "REBOUND HEADACHES", 08/20/13) baclofen (Verified Adverse Reaction, Severe, 06/13/15) PATIENT UNAWARE OF REACTION BUT WAS HOSPITALIZED AFTER TAKING MEDICATION AND WAS TOLD IT WAS A REACTION DUE TO THE MEDICATION SHE TOOK. meloxicam (Verified Adverse Reaction, Severe, 06/13/15) PATIENT UNAWARE OF REACTION BUT WAS HOSPITALIZED AFTER TAKING MEDICATION AND WAS TOLD IT WAS A REACTION DUE TO THE MEDICATION SHE TOOK. NSAIDS (Non-Steroidal Anti-Inflamma (Verified Adverse Reaction, Mild, have IBS and avoid NSAIDS, 12/04/12) Home Medications Dicyclomine HCl 20 Mg Tablet, 20 MG PO Q6H Prescribed by: CHANTEL MAJANO on 11/18/18 2325 Dicyclomine Hcl 20 Mg Tablet, 20 MG PO QID, (Reported) Famotidine 20 Mg Tablet, 20 MG PO BID Prescribed by: MARY BENTLEY on 10/01/18 0640 Hyoscyamine Sulfate 0.125 Mg Tab.subl, 0.125 MG SL Q4H PRN for CRAMPS Prescribed by: SADAF WALSH on 08/12/18 1844 Nitrofurantoin Monohyd/M-Cryst 100 Mg Capsule, 1 TAB PO BID Prescribed by: SADAF WALSH on 09/09/18 1618 Ondansetron 8 Mg Tab.rapdis, 8 MG PO Q6H PRN for NAUSEA/VOMITING Prescribed by: FAMILIA ELISE on 01/31/16 191 Ondansetron 4 Mg Tab.rapdis, 4 MG PO Q6H PRN for NAUSEA/VOMITING-1ST LINE Prescribed by: PAULA COLINDRES on 08/11/18 1232 Ondansetron 4 Mg Tab.rapdis, 4 MG PO Q6H PRN for NAUSEA/VOMITING Prescribed by: PAULA COLINDRES on 09/05/18 0534 Ondansetron 8 Mg Tab.rapdis, 8 MG PO Q6H Prescribed by: CHANTEL MAJANO on 11/18/18 2325 Promethazine HCl 25 Mg Tablet, 25 MG PO Q6H PRN for NAUSEA/VOMITING Prescribed by: PAULA COLINDRES on 08/11/18 1232 Promethazine HCl 25 Mg Supp.rect, 25 MG RC Q6H Prescribed by: PAULA COLINDRES on 09/05/18 0534 Promethazine HCl 25 Mg Tablet, 25 MG PO Q6H PRN for NAUSEA/VOMITING Prescribed by: SADAF WALSH on 09/09/18 1605 Promethazine HCl 25 Mg Tablet, 25 MG PO Q8H PRN for NAUSEA/VOMITING Prescribed by: MARY BENTLEY on 10/01/18 0640 Promethazine HCl 25 Mg Supp.rect, 25 MG RC Q4H Prescribed by: CHANTEL MAJANO on 11/18/18 232 Propranolol Hcl 10 Mg Tablet, 40 MG PO DAILY, (Reported) Scopolamine 1 Each Patch.td72, 1 EACH TD Q72 HOURS Prescribed by: CHANTEL MAJANO on 11/18/18 232 Patient Home Medication List Home Medication List Reviewed: Yes (PAULA COLINDRES) Review of Systems Review of Systems Constitutional: No chills, No diaphoresis, No fever, No malaise EENTM: No Blurred Vision, No Double Vision Respiratory: Denies Cough, Denies Shortness of Air Cardiovascular: See HPI, Chest Pain; Denies Edema, Denies Irregular Heart Rate, Denies Lightheadedness, Denies Palpitations, Denies Syncope Gastrointestinal: See HPI, Abdominal Pain (all other); Denies Constipated, Denies Diarrhea; Nausea, Vomiting Genitourinary: Denies Burning, Denies Discharge Musculoskeletal: No back pain, No joint pain (PAULA COLINDRES) Past Bjwzpag-Shukru-Ptftpt Hx Patient Social History Alcohol Use: Denies Use Recreational Drug Use: No (QUIT A MONTH AGO) Drug of Choice: Marijuana Smoking Status: Never a Smoker 2nd Hand Smoke Exposure: No Recent Foreign Travel: No Contact w/Someone Who Travel: No Recent Hopitalizations: No (PAULA COLINDRES) Immunizations Up To Date Tetanus Booster (TDap): More than 5yrs PED Vaccines UTD: No Date of Pneumonia Vaccine: Mar 03, 2014 Date of Influenza Vaccine: Mar 03, 2015 (PAULA COLINDRES) Seasonal Allergies Seasonal Allergies: No (PAULA COLINDRES) Past Medical History Surgeries: Yes Bladder Surgery, Gallbladder, 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, Oophorectomy, Tubal Ligation Respiratory: Yes Asthma Currently Using CPAP: No Currently Using BIPAP: No Cardiac: No Neurological: Yes ("SEIZURE WITH LOW BP" PER PT) Headaches /Migraines, Seizure Disorder 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 Disorders: Yes (2005--NO PHYSICIAN DOCUMENTATION OF ANY KIND OF CANCER) 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 Disorders: Denies 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: 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, Menopausal Sexually Transmitted Disease: Yes (HPV) HIV/AIDS: No Genitourinary: Yes Bladder Infection, UTI-Chronic Gastrointestinal: Yes Irritable Bowel Musculoskeletal: Yes Chronic Back Pain Endocrine: No HEENT: Yes (POOR DENTITION) Loss of Vision: Denies Cancer: No (NO PHYSICIAN DOCUMENTATION / VERIFICATION OF ANY KIND OF CANCER) Cervical, Colon Psychosocial: Yes Anxiety, Depression Integumentary: No Blood Disorders: No Adverse Reaction/Blood Tranf: No (PAULA COLINDRES) Family Medical History Diabetes mellitus 19 FATHER FHx: brain tumor 19 MOTHER HPV infection G8 SISTER No Family History of: AIDS Abdominal aortic aneurysm Madi's disease Alcoholism Alzheimer's disease Aphasia Arthritis Asthma Cancer of mouth Cardiovascular disease Cataracts Colon cancer Completed stroke Congenital disease Congenital heart disease Coronary thrombosis Cystic fibrosis Deafness or hearing loss Dementia Drug abuse Dysphasia Fibrocystic disease of breast Gastroenteritis Glaucoma Headache disorder Hypercholesterolemia Hypertension Infertility Kidney disease Myocardial infarction Neoplasm Not obtainable due to adoption Osteoporosis Parkinson's disease Prostate cancer Psychosocial problem Respiratory disorder Seizure disorder Severe allergy Thyroid disease Tuberculosis Visual disorder Heart Disease, Hypertension (PAULA COLINDRES) Physical Exam Vital Signs Vital Signs - First Documented 12/16/18 16:57 Pulse 98 Resp 13 B/P (MAP) 163/131 (142) Pulse Ox 99 O2 Delivery Room Air (CHANTEL MAJANO DO) Vital Signs Capillary Refill : Less Than 3 Seconds (PAULA COLINDRES) Height, Weight, BMI Height: 5'5.00" Weight: 184lbs. 9.0oz. 83.136974mc; 27.60 BMI Method:Stated General Appearance: WD/WN, Anxious HEENT: PERRL/EOMI, TMs Normal, Pharynx Normal, Moist Mucous Membranes Neck: Full Range of Motion, Normal Inspection Respiratory: Lungs Clear, Normal Breath Sounds, No Accessory Muscle Use, No Respiratory Distress Cardiovascular: Regular Rate, Rhythm, No Edema, Normal Peripheral Pulses Gastrointestinal: Normal Bowel Sounds, No Organomegaly, Non Tender, Soft Neurologic/Psychiatric: Alert, Oriented x3, No Motor/Sensory Deficits, Other (anxious affect) Skin: Normal Color, Warm/Dry (PAULA COLINDRES) HEENT: Other (EXTENSIVE DENTAL DECAY--MOST REMAINING TEETH DECAYED DOWN TO GUMS) (CHANTEL MAJANO DO) Progress/Results/Core Measures Results/Orders Lab Results Laboratory Tests Test 12/16/18 17:00 12/16/18 19:43 12/16/18 20:15 Range/Units White Blood Count 7.7 4.3-11.0 10^3/uL Red Blood Count 4.92 4.35-5.85 10^6/uL Hemoglobin 14.0 11.5-16.0 G/DL Hematocrit 43 35-52 % Mean Corpuscular Volume 86 80-99 FL Mean Corpuscular Hemoglobin 29 25-34 PG Mean Corpuscular Hemoglobin Concent 33 32-36 G/DL Red Cell Distribution Width 15.5 H 10.0-14.5 % Platelet Count 382 130-400 10^3/uL Mean Platelet Volume 8.9 7.4-10.4 FL Neutrophils (%) (Auto) 53 42-75 % Lymphocytes (%) (Auto) 38 12-44 % Monocytes (%) (Auto) 8 0-12 % Eosinophils (%) (Auto) 0 0-10 % Basophils (%) (Auto) 0 0-10 % Neutrophils # (Auto) 4.1 1.8-7.8 X 10^3 Lymphocytes # (Auto) 2.9 1.0-4.0 X 10^3 Monocytes # (Auto) 0.7 0.0-1.0 X 10^3 Eosinophils # (Auto) 0.0 0.0-0.3 10^3/uL Basophils # (Auto) 0.0 0.0-0.1 10^3/uL Prothrombin Time 12.6 12.2-14.7 SEC INR Comment 0.9 0.8-1.4 Activated Partial Thromboplast Time 28 24-35 SEC D-Dimer 0.40 0.00-0.49 UG/ML Sodium Level 139 135-145 MMOL/L Potassium Level 3.4 L 3.6-5.0 MMOL/L Chloride Level 99 98-107 MMOL/L Carbon Dioxide Level 27 21-32 MMOL/L Anion Gap 13 5-14 MMOL/L Blood Urea Nitrogen 10 7-18 MG/DL Creatinine 0.90 0.60-1.30 MG/DL Estimat Glomerular Filtration Rate > 60 BUN/Creatinine Ratio 11 Glucose Level 108 H 70-105 MG/DL Calcium Level 10.7 H 8.5-10.1 MG/DL Corrected Calcium 8.5-10.1 MG/DL Magnesium Level 1.9 1.8-2.4 MG/DL Total Bilirubin 0.4 0.1-1.0 MG/DL Aspartate Amino Transf (AST/SGOT) 73 H 5-34 U/L Alanine Aminotransferase (ALT/SGPT) 85 H 0-55 U/L Alkaline Phosphatase 82 40-136 U/L Myoglobin 20.2 10.0-92.0 NG/ML Troponin I < 0.028 < 0.028 <0.028 NG/ML B-Type Natriuretic Peptide < 10.0 <100.0 PG/ML Total Protein 8.1 6.4-8.2 GM/DL Albumin 4.8 H 3.2-4.5 GM/DL Lipase 42 8-78 U/L Urine Color YELLOW Urine Clarity SL CLOUDY Urine pH 6.5 5-9 Urine Specific [place] 1.020 1.016-1.022 Urine Protein 2+ H NEGATIVE Urine Glucose (UA) NEGATIVE NEGATIVE Urine Ketones 3+ H NEGATIVE Urine Nitrite NEGATIVE NEGATIVE Urine Bilirubin NEGATIVE NEGATIVE Urine Urobilinogen 1 NORMAL MG/DL Urine Leukocyte Esterase 2+ H NEGATIVE Urine RBC (Auto) NEGATIVE NEGATIVE Urine RBC NONE /HPF Urine WBC 0-2 /HPF Urine Squamous Epithelial Cells 10-25 H /HPF Urine Crystals NONE /LPF Urine Bacteria TRACE /HPF Urine Casts NONE /LPF Urine Mucus SMALL H /LPF Urine Culture Indicated NO Urine Opiates Screen NEGATIVE NEGATIVE Urine Oxycodone Screen NEGATIVE NEGATIVE Urine Methadone Screen NEGATIVE NEGATIVE Urine Propoxyphene Screen NEGATIVE NEGATIVE Urine Barbiturates Screen NEGATIVE NEGATIVE Ur Tricyclic Antidepressants Screen POSITIVE H NEGATIVE Urine Phencyclidine Screen NEGATIVE NEGATIVE Urine Amphetamines Screen NEGATIVE NEGATIVE Urine Methamphetamines Screen NEGATIVE NEGATIVE Urine Benzodiazepines Screen POSITIVE H NEGATIVE Urine Cocaine Screen NEGATIVE NEGATIVE Urine Cannabinoids Screen POSITIVE H NEGATIVE (CHANTEL MAJANO DO) My Orders Orders - CHANTEL MAJANO DO Labetalol Injection (Normodyne Injection (12/16/18 19:45) Drug Screen Stat (Urine) (12/16/18 19:44) Ua Culture If Indicated (12/16/18 19:44) Scopolamine Patch (Transderm-Scop Patch) (12/16/18 19:45) Ondansetron Injection (Zofran Injectio (12/16/18 19:45) (CHANTEL MAJANO DO) Medications Given in ED Current Medications Medications Dose Ordered Sig/Judi Route Start Time Stop Time Status Last Admin Dose Admin Fentanyl Citrate 25 mcg ONCE ONCE IVP 12/16/18 18:45 12/16/18 18:46 DC 12/16/18 18:53 25 MCG Iohexol 100 ml ONCE ONCE IV 12/16/18 18:45 12/16/18 18:46 DC 12/16/18 19:30 73 ML Labetalol HCl 20 mg ONCE ONCE IV 12/16/18 18:45 12/16/18 18:46 DC 12/16/18 18:54 20 MG Labetalol HCl 20 mg ONCE ONCE IV 12/16/18 19:45 12/16/18 19:46 DC 12/16/18 19:48 20 MG Lorazepam 0.5 mg ONCE ONCE IVP 12/16/18 17:30 12/16/18 17:31 DC 12/16/18 17:33 0.5 MG Ondansetron HCl 8 mg ONCE ONCE IVP 12/16/18 18:15 12/16/18 18:16 DC 12/16/18 18:04 8 MG Ondansetron HCl 8 mg ONCE ONCE IVP 12/16/18 19:45 12/16/18 19:48 DC 12/16/18 19:52 8 MG Pantoprazole 40 mg ONCE ONCE IV 12/16/18 18:45 12/16/18 18:46 DC 12/16/18 18:54 40 MG Promethazine HCl 25 mg ONCE ONCE IVP 12/16/18 18:45 12/16/18 18:46 DC 12/16/18 18:54 25 MG Scopolamine 1.5 mg ONCE ONCE TD 12/16/18 19:45 12/16/18 19:48 DC 12/16/18 19:52 1.5 MG Sodium Chloride 10 ml NEEDED PRN IV 12/16/18 18:45 12/16/18 19:30 10 ML Sodium Chloride 100 ml ONCE ONCE IV 12/16/18 18:45 12/16/18 18:46 DC 12/16/18 19:30 80 ML (MUKESH,CHANTEL K DO) Vital Signs/I&O 12/16/18 16:57 Pulse 98 Resp 13 B/P (MAP) 163/131 (142) Pulse Ox 99 O2 Delivery Room Air (MUKESH,CHANTEL K DO) Progress Progress Note #1: Time: 17:19 Progress Note EKG unremarkable. Well score for pulmonary embolism is 1.5 points low risk. Low risk group: 1.3% chance of PE in an ED population. Echocardiogram [address] Stahl: Normal global left ventricular systolic function with normal regional wall motion and left ventricular ejection fraction is 60%. Coronary angiogram [address] Dr. Stahl: Angiographically normal coronary arteries. EF is 60%. No significant mitral regurgitation. No evidence of ascending aortic aneurysm dissection or aortic regurgitation. ED ACS 1 point. Low risk by the EDACS Score. If the patient also has: (1) EKG without new ischemic changes and (2) negative initial and 2-hour troponins, then this patient is safe for discharge to early outpatient follow-up investigation ( or proceed to earlier inpatient testing). If EKG with ischemic changes or positive troponin, they are not low risk and require normal risk stratification. Progress Note #2: Time: 18:29 Progress Note Discussed case with Dr. Majano. She will see him. The patient. Plan is to get a CT angiogram to rule out any other intrathoracic wheezing or distress. Her high blood pressure and tachycardia is concerning. Plan to give her a liter fluids and labetalol. So far her pain is made worse by direct palpation or deep inspiration and improved only by the albuterol. Myocarditis is a possibility. Rule out a CRP as well as a delta troponin and 30 minutes. (PAULA COLINDRES) Progress Note : Progress Note 1829--ASSUMED CARE FROM DR. COLINDRES. REPEAT LAB AND CT CHEST ANGIOGRAM ARE PENDING. 1929--STILL C/O NAUSEA, BUT HAS NOT VOMITED. BP IS DOWN BUT DIASTOLIC IS STILL AROUND 110, SO WILL GIVE ADDITIONAL DOSE OF LABETALOL. NO C/O CHEST PAIN AT THIS TIME GIVEN SCOPOLAMINE AND ADDITIONAL ZOFRAN NO FURTHER C/O NAUSEA REPEAT TROPONIN NEGATIVE BP DOWN AT DISMISSAL NO FURTHER C/O CHEST PAIN PT WITH A MULTITUDE OF COMPLAINTS--MANY FOR GI COMPLAINTS, PT SMOKES MARIJUANA DAILY SEE OLD CHARTS FOR DETAILS PT HAS BEEN ADVISED MULTIPLE TIMES OF NEED FOR FOLLOW UP WITH PCP FOR FURTHER EVALUATION OF HER BP, AND IS AGAIN INSTRUCTED TO DO SO (CHANTEL MAJANO DO) Initial ECG Impression Date: Dec 16, 2018 Initial ECG Impression Time: 17:01 Initial ECG Rate: 107 Initial ECG Rhythm: S.Tach Initial ECG Intervals: Normal Initial ECG Impression: Normal, Nonspecific Changes Initial ECG Comparisson: Unchanged Comment Sinus tachycardia with a clinically significant ST elevation or depression. (PAULA COLINDRES) Diagnostic Imaging Diagonstic Imaging: Xray Plain Films/CT/US/NM/MRI: chest (1v) Comments NAME: DORIAN BROWN [facility] REC#: [id number] PT STATUS: REG ER : 1975 PHYSICIAN: FAMILIA ELISE APRN ADMIT DATE: 12/16/18/ER Draft Date of Exam:12/16/18 CHEST 1 VIEW, AP/PA ONLY INDICATION: Chest pain, trouble breathing. EXAMINATION: Two-view chest 12/16/2018. COMPARISON: 11/18/2018. FINDINGS: The cardiomediastinal silhouette is unremarkable. The pulmonary vasculature is within normal limits. The lungs and pleural spaces are clear. IMPRESSION: No evidence of an acute cardiopulmonary process. Dictated on workstation # [id number] Dict: 12/16/18 1731 Trans: 12/16/18 1735 [facility] [id number] Interpreted by: YAMIL ZIMMER MD Electronically signed by: Reviewed: Reviewed by Me Diagonstic Imaging: CT (angiogram) Plain Films/CT/US/NM/MRI: chest Reviewed: Reviewed by Me (PAULA COLINDRES) Comments CT CHEST ANGIOGRAM--NO ACUTE PROCESS, PER RADIOLOGIST REPORT AT 1944 Reviewed: Reviewed by (CHANTEL MAJANO DO) Transfer of Care Time: 18:29 Care transferred to: MUKESH (PAULA COLINDRES) Departure Impression Primary Impression: Chest wall pain Additional Impressions: Hypertension CHRONIC NAUSEA AND VOMITING AND EPIGASTRIC PAIN Cannabis abuse, daily use Disposition: 01 HOME, SELF-CARE Condition: Improved Departure-Patient Inst. Referrals: [facility] (PCP/Family) Primary Care Physician Patient Instructions: Chest Pain That Is Not Caused by the Heart (DC), Costochondritis (DC), DASH Diet, Drug Abuse and Drug Addiction (DC), High Blood Pressure (DC), Nausea and Vomiting, Adult (DC) Add. Discharge Instructions: FOLLOW UP WITH YOUR DR IN 1-2 DAYS FOR FURTHER CARE LEAVE SCOPOLAMINE PATCH IN PLACE FOR 72 HOURS TAKE YOUR HOME MEDICATIONS FOR GI SYMPTOMS NO MARIJUANA OR OTHER DRUGS RETURN TO ER IF SYMPTOMS WORSEN All discharge instructions reviewed with patient and/or family. Voiced understanding. PAULA COLINDRES Dec 16, 2018 17:20 CHANTEL MAJANO DO Dec 16, 2018 19:04
[2018-12-16] MEDS ORDERED: LORazepam INJ 2 MG/ML (ATIVAN) VIAL ONE (17:24)
[2018-12-16] MEDS ORDERED: RT-ALBUTEROL SULF 2.5 MG/3 ML PRE-MIX VIAL ONE (17:24)
[2018-12-16 17:28] LABS: INR 0.9 (0.8-1.4); PROTHROMBIN TIME PATIENT 12.6 SEC (12.2-14.7)
[2018-12-16] MEDS ORDERED: RT-ALBUTEROL SULF 2.5 MG/3 ML PRE-MIX VIAL INH STA (17:28)
[2018-12-16] MEDS ORDERED: LORazepam INJ 2 MG/ML (ATIVAN) VIAL IVP ONE (17:30)
--- NOTE | 2018-12-16 17:36 | Diagnostic Imaging Report ---
INDICATION: Chest pain, trouble breathing. EXAMINATION: Two-view chest 12/16/2018. COMPARISON: 11/18/2018. FINDINGS: The cardiomediastinal silhouette is unremarkable. The pulmonary vasculature is within normal limits. The lungs and pleural spaces are clear. IMPRESSION: No evidence of an acute cardiopulmonary process. Dictated by: Dictated on workstation # [id number]
[2018-12-16 17:37] LABS: ALANINE AMINOTRANSFERASE 85 U/L (0-55); ALBUMIN 4.8 GM/DL (3.2-4.5); ALKALINE PHOSPHATASE 82 U/L (40-136); BILIRUBIN,TOTAL 0.4 MG/DL (0.1-1.0); BUN/CREATININE RATIO 11; CALCIUM 10.7 MG/DL (8.5-10.1); CARBON DIOXIDE 27 MMOL/L (21-32); CHLORIDE 99 MMOL/L (98-107); GFR ESTIMATED > 60; GLUCOSE 108 MG/DL (70-105); LIPASE 42 U/L (8-78); MAGNESIUM 1.9 MG/DL (1.8-2.4); POTASSIUM 3.4 MMOL/L (3.6-5.0); SODIUM 139 MMOL/L (135-145); TOTAL PROTEIN 8.1 GM/DL (6.4-8.2)
[2018-12-16] MEDS ORDERED: ONDANSETRON 4 MG/2 ML (SDV) Z0FRAN ONE (17:55)
[2018-12-16] MEDS ORDERED: ONDANSETRON 4 MG/2 ML (SDV) Z0FRAN IVP ONE ×2 (18:15→19:45)
[2018-12-16] MEDS ORDERED: NS IV 1000 ML 1,000 ML IV SCH (18:33)
[2018-12-16] MEDS ORDERED: LABETALOL HCL 20 MG/4 ML VIAL IV ONE ×2 (18:45→19:45)
[2018-12-16] MEDS ORDERED: fentaNYL INJECTION 100 MCG/2 ML AMP IVP ONE (18:45)
[2018-12-16] MEDS ORDERED: HOLD METFORMIN - RECEIVED CONTRAST 20 ML VIAL IV SCH (18:45)
[2018-12-16] MEDS ORDERED: IOHEXOL 350 MG/ML 100 ML (OMNIPAQUE 350) VIAL IV ONE (18:45)
[2018-12-16] MEDS ORDERED: PROMETHAZINE INJ 25 MG/ML (PHENERGAN) AMP IVP ONE (18:45)
[2018-12-16] MEDS ORDERED: CATHETER FLUSH 10 ML SYR IV PRN (18:45)
[2018-12-16] MEDS ORDERED: PANTOPRAZOLE 40 MG (PROTONIX) VIAL IV ONE (18:45)
[2018-12-16] MEDS ORDERED: NS 100 ML (IVPB) BAG IV ONE (18:45)
--- NOTE | 2018-12-16 19:00 | NUR ---
assumed care of this patient at this time. introduced self, discussed patient cares and interventions. patient nis resting quietly and denies needs. call light within reach and friends are at bedside. will continue to monitor
--- NOTE | 2018-12-16 19:41 | Diagnostic Imaging Report ---
EXAMINATION: CT angiogram of the chest dated 12/16/2018. TECHNIQUE: Multiple contiguous axial images were obtained through the chest after uneventful bolus administration of intravenous contrast. 2D reconstructed CTA MIP acquisitions were also performed. Auto Exposure Controls were utilized during the CT exam to meet ALARA standards for radiation dose reduction. INDICATION: Vomiting and abdominal pain for two days, chest pain. FINDINGS: No central or proximal segmental pulmonary emboli are appreciated. The thoracic aorta is unremarkable. Upper abdominal structures are unremarkable for acute process. A small hiatal hernia is noted. Lungs are unremarkable. No pleural or pericardial effusions noted. Degenerative findings noted along the spine with no acute osseous abnormality visualized. IMPRESSION: 1. No acute process with no pulmonary embolus visualized and no evidence for an acute process along the visualized aorta. Dictated by: Dictated on workstation # [id number]
[2018-12-16] MEDS ORDERED: SCOPOLAMINE 1.5 MG (TRANSDERM-SCOP) PATCH TD ONE (19:45)
[2018-12-16 20:23] LABS: BILIRUBIN,URINE NEGATIVE (NEGATIVE); COLOR,URINE YELLOW; GLUCOSE, URINE (UA) NEGATIVE (NEGATIVE); KETONES,URINE 3+ (NEGATIVE); LEUKOCYTE ESTERASE ,URINE 2+ (NEGATIVE); NITRITE,URINE NEGATIVE (NEGATIVE); PH,URINE 6.5 (5-9); PROTEIN,URINE 2+ (NEGATIVE); UROBILINOGEN,URINE 1 MG/DL (NORMAL)
[2018-12-16 20:30] LABS: CLARITY,URINE SL CLOUDY
[2018-12-16 20:31] LABS: BACTERIA,URINE TRACE /HPF; WBC,URINE 0-2 /HPF
[2018-12-16 20:33] LABS: AMPHETAMINE SCREEN, URINE NEGATIVE (NEGATIVE); BARBITURATE SCREEN URINE NEGATIVE (NEGATIVE); BENZODIAZEPINES SCREEN URINE POSITIVE (NEGATIVE); CANNABINOID SCREEN, URINE POSITIVE (NEGATIVE); COCAINE SCREEN URINE NEGATIVE (NEGATIVE); METHADONE STAT NEGATIVE (NEGATIVE); METHAMPHETAMINE SCREEN URINE S NEGATIVE (NEGATIVE); OPIATE SCREEN URINE NEGATIVE (NEGATIVE); OXYCODONE STAT NEGATIVE (NEGATIVE); PROPOXYPHENE STAT NEGATIVE (NEGATIVE); TRICYCLIC ANTIDEPRESSANTS SCRE POSITIVE (NEGATIVE)
[2018-12-16 21:00] VITALS: BP 147/99
== END 2018-12-16 21:05 | disposition home or self-care (01) ==
LOC: EDUNIT# 16:57 → ER 16:58
DX: I10 Essential (primary) hypertension (principal); F12.10 Cannabis abuse, uncomplicated; R11.2 Nausea with vomiting, unspecified; R10.13 Epigastric pain; R07.89 Other chest pain; I25.10 Atherosclerotic heart disease of native coronary artery without angina pectoris; J45.909 Unspecified asthma, uncomplicated; F41.9 Anxiety disorder, unspecified; G43.909 Migraine, unspecified, not intractable, without status migrainosus; G40.909 Epilepsy, unspecified, not intractable, without status epilepticus; K58.9 Irritable bowel syndrome, unspecified; Z85.038 Personal history of other malignant neoplasm of large intestine; Z85.41 Personal history of malignant neoplasm of cervix uteri; Z87.440 Personal history of urinary (tract) infections; Z88.5 Allergy status to narcotic agent; Z88.6 Allergy status to analgesic agent; Z90.710 Acquired absence of both cervix and uterus; Z98.51 Tubal ligation status
CPT/HCPCS: 36415; 71045; 71275; 80053; 80306; 81000; 83690; 83735; 83874; 83880; 84484; 85025; 85379; 85610; 85730; 93005; 93041; 96361; 96374; 96375; 96376

== ENCOUNTER 2019-01-23 17:21 | Inpatient (IN) | payer SELFPAY ==
[~2019-01-23] VITALS: Ht 167.6 cm; Wt 92.3 kg
[2019-01-23 19:51] VITALS: BP 114/80
[2019-01-23 20:14] LABS: BASOPHILS % (AUTO) 0 % (0-10); EOSINOPHILS % (AUTO) 0 % (0-10); HEMATOCRIT 43 % (35-52); LYMPHOCYTES # (AUTO) 2.4 X 10^3 (1.0-4.0); LYMPHOCYTES % (AUTO) 22 % (12-44); MEAN CORPUSCULAR HEMOGLOBIN 29 PG (25-34); MEAN CORPUSCULAR HGB CONC 33 G/DL (32-36); MEAN CORPUSCULAR VOLUME 88 FL (80-99); MEAN PLATELET VOLUME 9.6 FL (7.4-10.4); MONOCYTES % (AUTO) 9 % (0-12); NEUTROPHILS # (AUTO) 7.5 X 10^3 (1.8-7.8); NEUTROPHILS % (AUTO) 69 % (42-75); PLATELET COUNT 375 10^3/uL (130-400); RED CELL DISTRIBUTION WIDTH 15.6 % (10.0-14.5); WHITE BLOOD COUNT 10.9 10^3/uL (4.3-11.0)
[2019-01-23] MEDS ORDERED: NS IV ONE (20:30)
[2019-01-23] MEDS ORDERED: FAMOTIDINE 20MG/2ML IV (PEPCID) IV STA (20:30)
[2019-01-23] MEDS ORDERED: ONDANSETRON 4 MG/2 ML (SDV) Z0FRAN IVP ONE (20:30)
[2019-01-23] MEDS ORDERED: fentaNYL INJECTION 100 MCG/2 ML AMP IVP STA ×2 (20:30→22:53)
[2019-01-23 20:32] LABS: ALBUMIN 4.2 GM/DL (3.2-4.5); BILIRUBIN,TOTAL 0.6 MG/DL (0.1-1.0); CALCIUM 10.2 MG/DL (8.5-10.1); CREATININE SERUM 1.17 MG/DL (0.60-1.30); POTASSIUM 3.1 MMOL/L (3.6-5.0); TOTAL PROTEIN 7.7 GM/DL (6.4-8.2)
[2019-01-23] MEDS ORDERED: HOLD METFORMIN - RECEIVED CONTRAST 20 ML VIAL IV SCH (20:45)
[2019-01-23] MEDS ORDERED: IOHEXOL 350 MG/ML 100 ML (OMNIPAQUE 350) VIAL IV ONE (20:45)
[2019-01-23] MEDS ORDERED: NS 100 ML (IVPB) BAG IV ONE (20:45)
--- NOTE | 2019-01-23 21:14 | NUR ---
multiple attempts made to insert NG tube. resistance met. patient refused continued attempts at this time.
[2019-01-23 21:52] LABS: BILIRUBIN,URINE NEGATIVE (NEGATIVE); CLARITY,URINE SLIGHTLY CLOUDY; COLOR,URINE YELLOW; GLUCOSE, URINE (UA) NEGATIVE (NEGATIVE); KETONES,URINE NEGATIVE (NEGATIVE); LEUKOCYTE ESTERASE ,URINE 1+ (NEGATIVE); NITRITE,URINE NEGATIVE (NEGATIVE); PH,URINE 5 (5-9); PROTEIN,URINE 1+ (NEGATIVE); UROBILINOGEN,URINE NORMAL (NORMAL)
[2019-01-23 22:04] LABS: BACTERIA,URINE MODERATE /HPF; WBC,URINE 0-2 /HPF
--- NOTE | 2019-01-23 22:05 | Diagnostic Imaging Report ---
PROCEDURE: CT abdomen and pelvis with contrast. TECHNIQUE: Multiple contiguous axial images were obtained through the abdomen and pelvis after administration of intravenous contrast. Auto Exposure Controls were utilized during the CT exam to meet ALARA standards for radiation dose reduction. INDICATION: Nausea. Vomiting. Bloating. COMPARISON: 08/12/2018. FINDINGS: Lung bases are clear. Cholecystectomy. 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. The liver, pancreas, spleen, adrenals, kidneys, collecting systems and bladder are negative. The appendix is not identified and may be surgically absent. No suspicious inflammatory findings in the region of the cecum. There is a large amount of stool throughout much of the colon, most markedly in the cecum. Diffuse moderate fluid-filled distention of the small bowel with no focal transition point. Tiny amount of free fluid layering along the ascending colon. No free intraperitoneal air. No lymphadenopathy. No acute osseous findings. IMPRESSION: 1. Diffuse nonspecific moderate distention of the small bowel with no focal transition point to suggest obstruction. 2. There is also moderate diffuse distention of the colon, most markedly affecting the cecum which is stool-filled. 3. Small amount of fluid layering along the ascending colon. No free intraperitoneal air or organized fluid collection. Dictated by: Dictated on workstation # [id number]
--- NOTE | 2019-01-23 22:10 | ED Abdominal Pain ---
General Chief Complaint: Abdominal/GI Problems Stated Complaint: CHEST PAINS Nursing Triage Note: Pt ambulatory to triage with c/o chest pain that began this morning. Pt reports pain is constant and burning. Pt also reports, "I am throwing up my own poop." Pt reports normal BM this morning, but has been vomiting feces since. Pt reports L sided stomach stomach pain. Pt reports pt is waiting for insurance to go through to see Dr. Gramajo for polyps. Pt reports hx of seizures and reported having three seizures yesterday. Sepsis Screen: No Definite Risk Source of Information: Patient, Other (friend) Exam Limitations: No Limitations History of Present Illness Date Seen by Provider: Jan 23, 2019 Allergies and Home Medications Allergies Coded Allergies: morphine (Verified Allergy, Unknown, CAUSES "REBOUND HEADACHES", 08/20/13) baclofen (Verified Adverse Reaction, Severe, 06/13/15) PATIENT UNAWARE OF REACTION BUT WAS HOSPITALIZED AFTER TAKING MEDICATION AND WAS TOLD IT WAS A REACTION DUE TO THE MEDICATION SHE TOOK. meloxicam (Verified Adverse Reaction, Severe, 06/13/15) PATIENT UNAWARE OF REACTION BUT WAS HOSPITALIZED AFTER TAKING MEDICATION AND WAS TOLD IT WAS A REACTION DUE TO THE MEDICATION SHE TOOK. NSAIDS (Non-Steroidal Anti-Inflamma (Verified Adverse Reaction, Mild, have IBS and avoid NSAIDS, 12/04/12) Home Medications Dicyclomine HCl 20 Mg Tablet, 20 MG PO Q6H Prescribed by: CHANTEL MAYORGA on 11/18/18 2325 Dicyclomine Hcl 20 Mg Tablet, 20 MG PO QID, (Reported) Famotidine 20 Mg Tablet, 20 MG PO BID Prescribed by: MARY BENTLEY on 10/01/18 0640 Hyoscyamine Sulfate 0.125 Mg Tab.subl, 0.125 MG SL Q4H PRN for CRAMPS Prescribed by: SADAF WALSH on 08/12/18 1844 Nitrofurantoin Monohyd/M-Cryst 100 Mg Capsule, 1 TAB PO BID Prescribed by: SADAF WALSH on 09/09/18 1618 Ondansetron 8 Mg Tab.rapdis, 8 MG PO Q6H PRN for NAUSEA/VOMITING Prescribed by: FAMILIA ELISE on 01/31/16 191 Ondansetron 4 Mg Tab.rapdis, 4 MG PO Q6H PRN for NAUSEA/VOMITING-1ST LINE Prescribed by: PAULA COLINDRES on 08/11/18 1232 Ondansetron 4 Mg Tab.rapdis, 4 MG PO Q6H PRN for NAUSEA/VOMITING Prescribed by: PAULA COLINDRES on 09/05/18 0534 Ondansetron 8 Mg Tab.rapdis, 8 MG PO Q6H Prescribed by: CHANTEL MAYORGA on 11/18/18 2325 Promethazine HCl 25 Mg Tablet, 25 MG PO Q6H PRN for NAUSEA/VOMITING Prescribed by: PAULA COLINDRES on 08/11/18 1232 Promethazine HCl 25 Mg Supp.rect, 25 MG RC Q6H Prescribed by: PAULA COLINDRES on 09/05/18 0534 Promethazine HCl 25 Mg Tablet, 25 MG PO Q6H PRN for NAUSEA/VOMITING Prescribed by: SADAF WALSH on 09/09/18 1605 Promethazine HCl 25 Mg Tablet, 25 MG PO Q8H PRN for NAUSEA/VOMITING Prescribed by: MARY BENTLEY on 10/01/18 0640 Promethazine HCl 25 Mg Supp.rect, 25 MG RC Q4H Prescribed by: CHANTEL MAYORGA on 11/18/18 2325 Propranolol Hcl 10 Mg Tablet, 40 MG PO DAILY, (Reported) Scopolamine 1 Each Patch.td72, 1 EACH TD Q72 HOURS Prescribed by: CHANTEL MAYORGA on 11/18/18 2325 Past Yoeesre-Nrihig-Twbzkp Hx Patient Social History Alcohol Use: Past History Recreational Drug Use: No (former hx) Drug of Choice: Marijuana Smoking Status: Former Smoker 2nd Hand Smoke Exposure: No Recent Foreign Travel: No Contact w/Someone Who Travel: No Recent Infectious Disease Expo: No Recent Hopitalizations: No Physical Abuse: No Sexual Abuse: No Mistreated: No Fear: No Immunizations Up To Date Tetanus Booster (TDap): More than 5yrs PED Vaccines UTD: No Date of Pneumonia Vaccine: Mar 03, 2014 Date of Influenza Vaccine: Mar 03, 2015 Seasonal Allergies Seasonal Allergies: No Past Medical History Surgeries: Yes Bladder Surgery, Gallbladder, 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, Oophorectomy, Tubal Ligation Respiratory: Yes Asthma Currently Using CPAP: No Currently Using BIPAP: No Cardiac: No Neurological: Yes ("SEIZURE WITH LOW BP" PER PT) Headaches /Migraines, Seizure Disorder 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 Disorders: Yes (HYST 2005--NO PHYSICIAN DOCUMENTATION OF ANY KIND OF CANCER) 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 Disorders: 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 Sexually Transmitted Disease: Yes (HPV) HIV/AIDS: No Genitourinary: Yes Bladder Infection, UTI-Chronic Gastrointestinal: Yes Irritable Bowel Musculoskeletal: Yes Chronic Back Pain Endocrine: No HEENT: Yes (POOR DENTITION) Loss of Vision: Denies Cancer: No (NO PHYSICIAN DOCUMENTATION / VERIFICATION OF ANY KIND OF CANCER) Cervical, Colon Psychosocial: Yes Anxiety, Depression Integumentary: No Blood Disorders: No Adverse Reaction/Blood Tranf: No Family Medical History Diabetes mellitus 19 FATHER FHx: brain tumor 19 MOTHER HPV infection G8 SISTER No Family History of: AIDS Abdominal aortic aneurysm Logan's disease Alcoholism Alzheimer's disease Aphasia Arthritis Asthma Cancer of mouth Cardiovascular disease Cataracts Colon cancer Completed stroke Congenital disease Congenital heart disease Coronary thrombosis Cystic fibrosis Deafness or hearing loss Dementia Drug abuse Dysphasia Fibrocystic disease of breast Gastroenteritis Glaucoma Headache disorder Hypercholesterolemia Hypertension Infertility Kidney disease Myocardial infarction Neoplasm Not obtainable due to adoption Osteoporosis Parkinson's disease Prostate cancer Psychosocial problem Respiratory disorder Seizure disorder Severe allergy Thyroid disease Tuberculosis Visual disorder Heart Disease, Hypertension Physical Exam Vital Signs Vital Signs - First Documented 01/23/19 17:43 Temp 100.3 Pulse 71 Resp 18 B/P (MAP) 96/63 (74) Pulse Ox 97 O2 Delivery Room Air Capillary Refill : Less Than 3 Seconds Height/Weight/BMI Height: 5'6.00" Weight: 185lbs. 9.0oz. 83.792412ug; 27.60 BMI Method:Stated Focused Exam Lactate Level 01/23/19 20:15: Lactic Acid Level 2.77*H Lactic Acid Level Laboratory Tests Test 01/23/19 20:15 Lactic Acid Level 2.77 MMOL/L (0.50-2.00) *H Progress/Results/Core Measures Results/Orders Lab Results Laboratory Tests Test 01/23/19 20:00 01/23/19 20:15 01/23/19 21:46 Range/Units White Blood Count 10.9 4.3-11.0 10^3/uL Red Blood Count 4.85 4.35-5.85 10^6/uL Hemoglobin 14.0 11.5-16.0 G/DL Hematocrit 43 35-52 % Mean Corpuscular Volume 88 80-99 FL Mean Corpuscular Hemoglobin 29 25-34 PG Mean Corpuscular Hemoglobin Concent 33 32-36 G/DL Red Cell Distribution Width 15.6 H 10.0-14.5 % Platelet Count 375 130-400 10^3/uL Mean Platelet Volume 9.6 7.4-10.4 FL Neutrophils (%) (Auto) 69 42-75 % Lymphocytes (%) (Auto) 22 12-44 % Monocytes (%) (Auto) 9 0-12 % Eosinophils (%) (Auto) 0 0-10 % Basophils (%) (Auto) 0 0-10 % Neutrophils # (Auto) 7.5 1.8-7.8 X 10^3 Lymphocytes # (Auto) 2.4 1.0-4.0 X 10^3 Monocytes # (Auto) 1.0 0.0-1.0 X 10^3 Eosinophils # (Auto) 0.0 0.0-0.3 10^3/uL Basophils # (Auto) 0.0 0.0-0.1 10^3/uL Sodium Level 139 135-145 MMOL/L Potassium Level 3.1 L 3.6-5.0 MMOL/L Chloride Level 96 L 98-107 MMOL/L Carbon Dioxide Level 23 21-32 MMOL/L Anion Gap 20 H 5-14 MMOL/L Blood Urea Nitrogen 8 7-18 MG/DL Creatinine 1.17 0.60-1.30 MG/DL Estimat Glomerular Filtration Rate 51 BUN/Creatinine Ratio 7 Glucose Level 164 H 70-105 MG/DL Calcium Level 10.2 H 8.5-10.1 MG/DL Corrected Calcium 10.0 8.5-10.1 MG/DL Total Bilirubin 0.6 0.1-1.0 MG/DL Aspartate Amino Transf (AST/SGOT) 44 H 5-34 U/L Alanine Aminotransferase (ALT/SGPT) 77 H 0-55 U/L Alkaline Phosphatase 111 40-136 U/L C-Reactive Protein High Sensitivity 13.06 H 0.00-0.50 MG/DL Total Protein 7.7 6.4-8.2 GM/DL Albumin 4.2 3.2-4.5 GM/DL Lipase 15 8-78 U/L Lactic Acid Level 2.77 *H 0.50-2.00 MMOL/L Urine Color YELLOW Urine Clarity SLIGHTLY CLOUDY Urine pH 5 5-9 Urine Specific [place] 1.015 L 1.016-1.022 Urine Protein 1+ H NEGATIVE Urine Glucose (UA) NEGATIVE NEGATIVE Urine Ketones NEGATIVE NEGATIVE Urine Nitrite NEGATIVE NEGATIVE Urine Bilirubin NEGATIVE NEGATIVE Urine Urobilinogen NORMAL NORMAL MG/DL Urine Leukocyte Esterase 1+ H NEGATIVE Urine RBC (Auto) NEGATIVE NEGATIVE Urine RBC NONE /HPF Urine WBC 0-2 /HPF Urine Squamous Epithelial Cells 10-25 H /HPF Urine Crystals NONE /LPF Urine Bacteria MODERATE H /HPF Urine Casts PRESENT /LPF Urine Hyaline Casts 5-10 H /LPF Urine Mucus MODERATE H /LPF Urine Culture Indicated YES My Orders Orders - ROSIE PIRES Ed Iv/Invasive Line Start (01/23/19 20:07) Cbc With Automated Diff (01/23/19 20:07) Comprehensive Metabolic Panel (01/23/19 20:07) Hs C Reactive Protein (01/23/19 20:07) Lactic Acid Analyzer (01/23/19 20:07) Lipase (01/23/19 20:07) Ua Culture If Indicated (01/23/19 20:07) Blood Culture (01/23/19 20:07) Ct Abdomen/Pelvis W (01/23/19 20:30) Ondansetron Injection (Zofran Injectio (01/23/19 20:30) Famotidine Injection (Pepcid Injection) (01/23/19 20:30) Fentanyl Injection (Sublimaze Injection (01/23/19 20:30) Ns Iv 1000 Ml (Sodium Chloride 0.9%) (01/23/19 20:30) Ng Tube Insert & Assessment (01/23/19 20:30) Iohexol Injection (Omnipaque 350 Mg/Ml 1 (01/23/19 20:45) Received Contrast (Hold Metformin- Contr (01/23/19 20:45) Ns (Ivpb) (Sodium Chloride 0.9% Ivpb Bag (01/23/19 20:45) Urine Culture (01/23/19 21:46) Zosyn 4.5 Gm Iv (01/23/19 22:30) Medications Given in ED Current Medications Medications Dose Ordered Sig/Judi Route Start Time Stop Time Status Last Admin Dose Admin Iohexol 100 ml ONCE ONCE IV 01/23/19 20:45 01/23/19 20:46 DC 01/23/19 21:42 100 ML Ondansetron HCl 4 mg ONCE ONCE IVP 01/23/19 20:30 01/23/19 20:33 DC 01/23/19 20:42 4 MG Sodium Chloride 100 ml ONCE ONCE IV 01/23/19 20:45 01/23/19 20:46 DC 01/23/19 21:42 80 ML Sodium Chloride 2,517.45 ml @ 2,517.45 mls/hr ONCE ONCE IV 01/23/19 20:30 01/23/19 21:29 DC 01/23/19 20:43 2,517.45 MLS/HR Vital Signs/I&O 01/23/19 01/23/19 01/23/19 17:43 19:51 20:15 Temp 100.3 99.3 99.3 Pulse 71 72 72 Resp 18 20 20 B/P (MAP) 96/63 (74) 114/80 (91) 86/71 Pulse Ox 97 98 98 O2 Delivery Room Air Room Air Blood Pressure Mean: 76 Diagnostic Imaging Diagonstic Imaging: CT Plain Films/CT/US/NM/MRI: abdomen, pelvis Comments CT ABDOMEN/PELVIS W PROCEDURE: CT abdomen and pelvis with contrast. TECHNIQUE: Multiple contiguous axial images were obtained through the abdomen and pelvis after administration of intravenous contrast. Auto Exposure Controls were utilized during the CT exam to meet ALARA standards for radiation dose reduction. INDICATION: Nausea. Vomiting. Bloating. COMPARISON: 08/12/2018. FINDINGS: Lung bases are clear. Cholecystectomy. 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. The liver, pancreas, spleen, adrenals, kidneys, collecting systems and bladder are negative. The appendix is not identified and may be surgically absent. No s uspicious inflammatory findings in the region of the cecum. There is a large amount of stool throughout much of the colon, most markedly in the cecum. Diffuse moderate fluid-filled distention of the small bowel with no focal transition point. Tiny amount of free fluid layering along the ascending colon. No free intraperitoneal air. No lymphadenopathy. No acute osseous findings. IMP RESSION: 1. Diffuse nonspecific moderate distention of the small bowel with no focal transition point to suggest obstruction. 2. There is also moderate diffuse distention of the colon, most markedly affecting the cecum which is stool- filled. 3. Small amount of fluid layering along the ascending colon. No free intraperitoneal air or organized fluid collection. Dictated on workstation # [id number] Reviewed: Reviewed by Me (radiology report reviewed by me) Departure Impression Primary Impression: Sepsis Additional Impression: Bowel obstruction Disposition: ADMITTED INPATIENT Condition: Stable Admissions Decision to Admit Reason: Admit from ER (General) Decision to Admit/Date: Jan 23, 2019 Time/Decision to Admit Time: 22:10 Departure-Patient Inst. Referrals: [facility] (PCP/Family) Primary Care Physician ROSIE PIRES Jan 23, 2019 22:10
[2019-01-23] MEDS ORDERED: PIPERACILLIN SODIUM/TAZOBACTAM 4.5 GM in NS (IVPB) 100 ML IV ONE (22:30)
[2019-01-23] MEDS ORDERED: NS (IVPB) 100 ML ONE (23:16)
[2019-01-23] MEDS ORDERED: PIPERACILLIN/TAZO 4.5 GM VIAL (ZOSYN) IV ONE (23:16)
--- NOTE | 2019-01-24 | NUR ---
DORIAN BROWN admitted to room 417-1, with an admitting diagnosis of SEPSIS, BOWEL OBSTRUCTION, AND COLITIS, on 01/23/19 from ED via WHEELCHAIR, accompanied by STAFF AND FAMILY. DORIAN BROWN introduced to surroundings, call light, bed controls, phone, TV, temperature control, lights, meal times, smoking policy, visitor policy, side rail policy, bathrooms and showers. Patient Rights given to patient in the handbook. DORIAN BROWN verbalizes understanding that [facility] is not responsible for the loss or damage to any personal effects or valuables that are kept in the patients posession during their hospitalization.
[2019-01-24] MEDS: NS W/KCL 20 MEQ/L 1,000 ML IV SCH ×4 (00:20→21:01)
[2019-01-24 00:45] VITALS: BP 92/58
--- NOTE | 2019-01-24 00:47 | NUR ---
Orders to star NG tube. Multiple attempts to insert NG tube in ED. Educated the pt about the need of NG tube. Pt refused to insert the NG tube at this time. Pt sated that she will rest for the night and try in the morning.
[2019-01-24] MEDS: fentaNYL INJECTION 100 MCG/2 ML AMP IV PRN ×5 (01:51→23:51)
[2019-01-24] MEDS: ONDANSETRON 4 MG/2 ML (SDV) Z0FRAN IV PRN (01:52)
[2019-01-24 04:00] VITALS: BP 92/51
[2019-01-24] MEDS ORDERED: PIPERACILLIN/TAZO 4.5 GM VIAL (ZOSYN) IV ONE (05:38)
[2019-01-24] MEDS: PIPERACILLIN/TAZO 4.5 GM/NS 100 ML IV SCH ×6 (05:55→21:00)
[2019-01-24 05:58] LABS: BASOPHILS % (AUTO) 0 % (0-10); EOSINOPHILS # (AUTO) 0.1 10^3/uL (0.0-0.3); EOSINOPHILS % (AUTO) 1 % (0-10); HEMATOCRIT 33 % (35-52); HEMOGLOBIN 10.6 G/DL (11.5-16.0); LYMPHOCYTES # (AUTO) 1.9 X 10^3 (1.0-4.0); LYMPHOCYTES % (AUTO) 27 % (12-44); MEAN CORPUSCULAR HEMOGLOBIN 29 PG (25-34); MEAN CORPUSCULAR HGB CONC 32 G/DL (32-36); MEAN CORPUSCULAR VOLUME 90 FL (80-99); MEAN PLATELET VOLUME 9.5 FL (7.4-10.4); MONOCYTES # (AUTO) 0.7 X 10^3 (0.0-1.0); MONOCYTES % (AUTO) 11 % (0-12); NEUTROPHILS # (AUTO) 4.2 X 10^3 (1.8-7.8); NEUTROPHILS % (AUTO) 61 % (42-75); PLATELET COUNT 241 10^3/uL (130-400); RED CELL DISTRIBUTION WIDTH 15.6 % (10.0-14.5); WHITE BLOOD COUNT 6.9 10^3/uL (4.3-11.0)
[2019-01-24] MEDS: FAMOTIDINE 20MG/2ML IV (PEPCID) IV PRN (06:04)
[2019-01-24 06:24] LABS: ALANINE AMINOTRANSFERASE 45 U/L (0-55); ALBUMIN 2.9 GM/DL (3.2-4.5); ALKALINE PHOSPHATASE 73 U/L (40-136); BILIRUBIN,TOTAL 0.5 MG/DL (0.1-1.0); BUN/CREATININE RATIO 9; CALCIUM 7.6 MG/DL (8.5-10.1); CARBON DIOXIDE 20 MMOL/L (21-32); CHLORIDE 107 MMOL/L (98-107); CREATININE SERUM 0.74 MG/DL (0.60-1.30); GFR ESTIMATED > 60; GLUCOSE 111 MG/DL (70-105); POTASSIUM 3.4 MMOL/L (3.6-5.0); SODIUM 142 MMOL/L (135-145)
[2019-01-24 08:00] VITALS: BP_SYST 158; BP_SYST 78; BP_DIAS 44; BP_DIAS 76
--- NOTE | 2019-01-24 08:57 | NUR ---
DR ALMAZAN NOTIFIED OF BP 78/52 MANUALLY. PT IS ASYMPTOMATIC, RESTING IN BED WITHOUT COMPLAINTS. ORDER RECEIVED TO GIVE X1 NS BOLUS AND TO CONSULT MEDICINE. 09- DR CELESTIN NOTIFIED OF CONSULT. NO NEW ORDERS RECEIVED AT THIS TIME.
--- NOTE | 2019-01-24 09:00 | NUR ---
PT CONTINUES TO REFUSE NG TUBE, STATES SHE HAD A REGULAR BM THIS AM. DR ALMAZAN NOTIFIED.
[2019-01-24] MEDS ORDERED: NS IV 1000 ML 1,000 ML IV SCH (09:15)
[2019-01-24] MEDS: PANTOPRAZOLE 40 MG (PROTONIX) VIAL IV SCH (09:33)
--- NOTE | 2019-01-24 09:50 | Diagnostic Imaging Report ---
INDICATION: Left-sided abdominal pain. COMPARISON: CT from 01/23/2019 FINDINGS: Supine and upright radiographic views of the abdomen were obtained. Colonic stool burden is much improved compared to previous CT. A few air-fluid levels are noted scattered throughout the large and small bowel. Small bowel loops otherwise appear nondistended. There is no large collection of free intraperitoneal air. No unexpected extraosseous calcifications or radiopaque foreign bodies are seen. IMPRESSION: 1. Significant improved colonic stool burden. 2. A few air-fluid levels are noted scattered throughout. There is otherwise no evidence of small bowel obstruction. Dictated by: Dictated on workstation # [id number]
--- NOTE | 2019-01-24 10:35 | History & Physical-Surgical ---
ANASAPNA,MED STUDENT 01/24/19 1035: History of Present Illness History of Present Illness Reason for visit/HPI Patient presented to the ED yesterday with complaint of burning left-sided abdominal pain, nausea, and vomiting feces. An NG tube was attempted in the ED but was unsuccessful. She has refused NG tube since then. She reports having a normal bowel movement yesterday morning and again this morning. Patient states that her abdominal pain has improved today and is less bloated. She reports a history of colon polyps and is working on scheduling a colonoscopy. Denies naus ea or vomiting today. Denies chest pain, shortness of breath, fever, or chills. No family at bedside. CT abd/pelvis reviewed which showed nonspecific moderate distention of the small bowel with no focal transition point noted, moderate diffuse distention of colon mostly affecting cecum which is stool-filled, and a small amount of fluid layering the ascending colon. Date of Admission Jan 23, 2019 at 22:30 Date Seen by a Provider: Jan 24, 2019 Time Seen by a Provider: 09:55 I consulted on this patient on 01/24/19 09:55 Attending Physician Penny Almazan DO Admitting Physician Center/[facility] Consult Allergies and Home Medications Allergies Coded Allergies: morphine (Verified Allergy, Unknown, CAUSES "REBOUND HEADACHES", 08/20/13) baclofen (Verified Adverse Reaction, Severe, 06/13/15) PATIENT UNAWARE OF REACTION BUT WAS HOSPITALIZED AFTER TAKING MEDICATION AND WAS TOLD IT WAS A REACTION DUE TO THE MEDICATION SHE TOOK. meloxicam (Verified Adverse Reaction, Severe, 06/13/15) PATIENT UNAWARE OF REACTION BUT WAS HOSPITALIZED AFTER TAKING MEDICATION AND WAS TOLD IT WAS A REACTION DUE TO THE MEDICATION SHE TOOK. NSAIDS (Non-Steroidal Anti-Inflamma (Verified Adverse Reaction, Mild, have IBS and avoid NSAIDS, 12/04/12) Home Medications Dicyclomine HCl 20 Mg Tablet, 20 MG PO Q6H Prescribed by: CHANTEL MAYORGA on 11/18/18 2325 Dicyclomine Hcl 20 Mg Tablet, 20 MG PO QID, (Reported) Famotidine 20 Mg Tablet, 20 MG PO BID Prescribed by: MARY BENTLEY on 10/01/18 0640 Hyoscyamine Sulfate 0.125 Mg Tab.subl, 0.125 MG SL Q4H PRN for CRAMPS Prescribed by: SADAF WALSH on 08/12/18 1844 Nitrofurantoin Monohyd/M-Cryst 100 Mg Capsule, 1 TAB PO BID Prescribed by: SADAF WALSH on 09/09/18 1618 Ondansetron 8 Mg Tab.rapdis, 8 MG PO Q6H PRN for NAUSEA/VOMITING Prescribed by: FAMILIA ELISE on 01/31/16 1911 Ondansetron 4 Mg Tab.rapdis, 4 MG PO Q6H PRN for NAUSEA/VOMITING-1ST LINE Prescribed by: PALUA COLINDRES on 08/11/18 1232 Ondansetron 4 Mg Tab.rapdis, 4 MG PO Q6H PRN for NAUSEA/VOMITING Prescribed by: PAULA COLINDRES on 09/05/18 0534 Ondansetron 8 Mg Tab.rapdis, 8 MG PO Q6H Prescribed by: CHANTEL MAYORGA on 11/18/18 2325 Promethazine HCl 25 Mg Tablet, 25 MG PO Q6H PRN for NAUSEA/VOMITING Prescribed by: PAULA COLINDRES on 08/11/18 1232 Promethazine HCl 25 Mg Supp.rect, 25 MG RC Q6H Prescribed by: PAULA COLINDRES on 09/05/18 0534 Promethazine HCl 25 Mg Tablet, 25 MG PO Q6H PRN for NAUSEA/VOMITING Prescribed by: SADAF WALSH on 09/09/18 1605 Promethazine HCl 25 Mg Tablet, 25 MG PO Q8H PRN for NAUSEA/VOMITING Prescribed by: MARY BENTLEY on 10/01/18 0640 Promethazine HCl 25 Mg Supp.rect, 25 MG RC Q4H Prescribed by: CHANTEL MAYORGA on 11/18/18 232 Propranolol Hcl 10 Mg Tablet, 40 MG PO DAILY, (Reported) Scopolamine 1 Each Patch.td72, 1 EACH TD Q72 HOURS Prescribed by: CHANTEL MAYORGA on 11/18/182324 Patient Home Medication List Home Medication List Reviewed: Yes Past Uhkwvdz-Alvmle-Bobpqr Hx Patient Social History Alcohol Use: Past History Recreational Drug Use: No (former hx) Drug of Choice: Marijuana Smoking Status: Former Smoker 2nd Hand Smoke Exposure: No Recent Foreign Travel: No Contact w/Someone Who Travel: No Recent Infectious Disease Expo: No Recent Hopitalizations: No Immunizations Up To Date Tetanus Booster (TDap): More than 5yrs PED Vaccines UTD: No Date of Pneumonia Vaccine: Mar 03, 2014 Date of Influenza Vaccine: Mar 03, 2015 Seasonal Allergies Seasonal Allergies: No Surgeries History of Surgeries: Yes Surgeries: Bladder Surgery, Gallbladder, 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, Oophorectomy, Tubal Ligation Respiratory History of Respiratory Disorde: Yes Respiratory Disorders: Asthma Cardiovascular History of Cardiac Disorders: No Neurological History of Neurological Disord: Yes ("SEIZURE WITH LOW BP" PER PT) Neurological Disorders: Headaches /Migraines, Seizure Disorder 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 System Hx 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 Disorders: Yes (HYST 2005--NO PHYSICIAN DOCUMENTATION OF ANY KIND OF CANCER) Sexually Transmitted Disease: Yes (HPV) HIV/AIDS: No 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 Disorders: Denies 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 Genitourinary History of Genitourinary Disor: Yes Genitourinary Disorders: Bladder Infection, UTI-Chronic Gastrointestinal History of Gastrointestinal Di: Yes Gastrointestinal Disorders: Irritable Bowel Musculoskeletal History of Musculoskeletal Dis: Yes Musculoskeletal Disorders: Chronic Back Pain Endocrine History of Endocrine Disorders: No HEENT History of HEENT Disorders: Yes (POOR DENTITION) Loss of Vision: Denies Cancer History of Cancer: No (NO PHYSICIAN DOCUMENTATION / VERIFICATION OF ANY KIND OF CANCER) Cancer: Cervical, Colon Psychosocial History of Psychiatric Problem: Yes Behavioral Health Disorders: Anxiety, Depression Integumentary History of Skin or Integumenta: No Blood Transfusions History of Blood Disorders: No Adverse Reaction to a Blood Tr: No Family Medical History Significant Family History: Heart Disease, Hypertension Family Medial History: Diabetes mellitus 19 FATHER FHx: brain tumor 19 MOTHER HPV infection G8 SISTER No Family History of: AIDS Abdominal aortic aneurysm Lublin's disease Alcoholism Alzheimer's disease Aphasia Arthritis Asthma Cancer of mouth Cardiovascular disease Cataracts Colon cancer Completed stroke Congenital disease Congenital heart disease Coronary thrombosis Cystic fibrosis Deafness or hearing loss Dementia Drug abuse Dysphasia Fibrocystic disease of breast Gastroenteritis Glaucoma Headache disorder Hypercholesterolemia Hypertension Infertility Kidney disease Myocardial infarction Neoplasm Not obtainable due to adoption Osteoporosis Parkinson's disease Prostate cancer Psychosocial problem Respiratory disorder Seizure disorder Severe allergy Thyroid disease Tuberculosis Visual disorder Review of Systems Constitutional: see HPI EENTM: no symptoms reported Respiratory: no symptoms reported Cardiovascular: no symptoms reported Gastrointestinal: see HPI Genitourinary: no symptoms reported Musculoskeletal: no symptoms reported Skin: no symptoms reported Psychiatric/Neurological: No Symptoms Reported Physical Exam Vital Signs Vital Signs - First Documented 01/23/19 17:43 Temp 100.3 Pulse 71 Resp 18 B/P (MAP) 96/63 (74) Pulse Ox 97 O2 Delivery Room Air Capillary Refill : Less Than 3 Seconds Height, Weight, BMI Height: 5'6.00" Weight: 203lbs. 6.4oz. [id number]; 31.6 BMI Method:Stated General Appearance: No Apparent Distress, WD/WN HEENT: PERRL/EOMI, Pharynx Normal Neck: Full Range of Motion, Normal Inspection, Non Tender, Supple Respiratory: Chest Non Tender, No Accessory Muscle Use, No Respiratory Distress Cardiovascular: Regular Rate, Rhythm Gastrointestinal: Non Tender, Soft Rectal: Deferred Back: Normal Inspection, No CVA Tenderness Extremity: Normal Inspection, Normal Range of Motion, Non Tender Neurologic/Psychiatric: Alert, Oriented x3, No Motor/Sensory Deficits, Normal Mood/Affect, pony rougher II-XII Norm as Tested Skin: Normal Color, Warm/Dry Lymphatic: No Adenopathy Data Review Labs Laboratory Tests 01/23/19 20:00: White Blood Count 10.9, Red Blood Count 4.85, Hemoglobin 14.0, Hematocrit 43, Mean Corpuscular Volume 88, Mean Corpuscular Hemoglobin 29, Mean Corpuscular Hemoglobin Concent 33, Red Cell Distribution Width 15.6H, Platelet Count 375, Mean Platelet Volume 9.6, Neutrophils (%) (Auto) 69, Lymphocytes (%) (Auto) 22, Monocytes (%) (Auto) 9, Eosinophils (%) (Auto) 0, Basophils (%) (Auto) 0, Neutrophils # (Auto) 7.5, Lymphocytes # (Auto) 2.4, Monocytes # (Auto) 1.0, Eosinophils # (Auto) 0.0, Basophils # (Auto) 0.0, Sodium Level 139, Potassium Level 3.1L, Chloride Level 96L, Carbon Dioxide Level 23, Anion Gap 20H, Blood Ur ea Nitrogen 8, Creatinine 1.17, Estimat Glomerular Filtration Rate 51, BUN/Creatinine Ratio 7, Glucose Level 164H, Calcium Level 10.2H, Corrected Calcium 10.0, Total Bilirubin 0.6, Aspartate Amino Transf (AST/SGOT) 44H, Alanine Aminotransferase (ALT/SGPT) 77H, Alkaline Phosphatase 111, C-Reactive Protein High Sensitivity 13.06H, Total Protein 7.7, Albumin 4.2, Lipase 15 01/23/19 20:15: Lactic Acid Level 2.77*H 01/23/19 21:46: Urine Color YELLOW, Urine Clarity SLIGHTLY CLOUDY, Urine pH 5, Urine Specific [place] 1.015L, Urine Protein 1+H, Urine Glucose (UA) NEGATIVE, Urine Ketones NEGATIVE, Urine Nitrite NEGATIVE, Urine Bilirubin NEGATIVE, Urine Urobilinogen NORMAL, Urine Leukocyte Esterase 1+H, Urine RBC (Auto) NEGATIVE, Urine RBC NONE, Urine WBC 0-2, Urine Squamous Epithelial Cells 10-25H, Urine Crystals NONE, Urine Bacteria MODERATEH, Urine Casts PRESENT, Urine Hyaline Casts 5-10H, Urine Mucus MODERATEH, Urine Culture Indicated YES 01/23/19 22:29: Lactic Acid Level 1.81 01/24/19 05:38: White Blood Count 6.9, Red Blood Count 3.69L, Hemoglobin 10.6#L, Hematocrit 33L, Mean Corpuscular Volume 90, Mean Corpuscular Hemoglobin 29, Mean Corpuscular Hemoglobin Concent 32, Red Cell Distribution Width 15.6H, Platelet Count 241, Mean Platelet Volume 9.5, Neutrophils (%) (Auto) 61, Lymphocytes (%) (Auto) 27, Monocytes (%) (Auto) 11, Eosinophils (%) (Auto) 1, Basophils (%) (Auto) 0, Ne utrophils # (Auto) 4.2, Lymphocytes # (Auto) 1.9, Monocytes # (Auto) 0.7, Eosinophils # (Auto) 0.1, Basophils # (Auto) 0.0, Sodium Level 142, Potassium Level 3.4L, Chloride Level 107, Carbon Dioxide Level 20L, Anion Gap 15H, Blood Urea Nitrogen 7, Creatinine 0.74, Estimat Glomerular Filtration Rate > 60, BUN/Creatinine Ratio 9, Glucose Level 111H, Lactic Acid Level 1.20, Calcium Level 7.6L, Corrected Calcium 8.5, Total Bilirubin 0.5, Aspartate Amino Transf (AST/SGOT) 21, Alanine Aminotransferase (ALT/SGPT) 45, Alkaline Phosphatase 73, C-Reactive Protein High Sensitivity 9.51H, Total Protein 5.0L, Albumin 2.9L Assessment/Plan Assessment/Plan Admission Diagonsis Colitis Partial small bowel obstruction Admission Status: Observation Assessment/Plan Colitis Partial small bowel obstruction Patient not septic, does not meet SIRS criteria Normal bowel movements today and yesterday SBFT to rule out SBO IV fluids Clear liquid diet colonoscopy outpatient in approximately 8 weeks Clinical Quality Measures DVT/VTE Risk/Contraindication: Risk Factor Score Per Nursin RFS Level Per Nursing on Admit: 2=Moderate PENNY ALMAZAN DO 01/24/19 1102: History of Present Illness History of Present Illness Reason for visit/HPI Patient with n/v feculent material and went to ED To be further evaluated yesterday. Patient states it has been going on about a day and her abdomen looked like she was 9 months . She is had a bm and is passing some flatus and states her abdomen has gone down now. She was also having moderate pain in the left upper quadrant, burning type pain no radiation. She feels this is more related to vomiting This has improved. Allergies and Home Medications Allergies Coded Allergies: morphine (Verified Allergy, Unknown, CAUSES "REBOUND HEADACHES", 08/20/13) baclofen (Verified Adverse Reaction, Severe, 06/13/15) PATIENT UNAWARE OF REACTION BUT WAS HOSPITALIZED AFTER TAKING MEDICATION AND WAS TOLD IT WAS A REACTION DUE TO THE MEDICATION SHE TOOK. meloxicam (Verified Adverse Reaction, Severe, 06/13/15) PATIENT UNAWARE OF REACTION BUT WAS HOSPITALIZED AFTER TAKING MEDICATION AND WAS TOLD IT WAS A REACTION DUE TO THE MEDICATION SHE TOOK. NSAIDS (Non-Steroidal Anti-Inflamma (Verified Adverse Reaction, Mild, have IBS and avoid NSAIDS, 12/04/12) Home Medications Dicyclomine HCl 20 Mg Tablet, 20 MG PO Q6H Prescribed by: CHANTEL MAYORGA on 11/18/18 2325 Dicyclomine Hcl 20 Mg Tablet, 20 MG PO QID, (Reported) Famotidine 20 Mg Tablet, 20 MG PO BID Prescribed by: MARY BENTLEY on 10/01/18 0640 Hyoscyamine Sulfate 0.125 Mg Tab.subl, 0.125 MG SL Q4H PRN for CRAMPS Prescribed by: SADAF WALSH on 08/12/18 1844 Nitrofurantoin Monohyd/M-Cryst 100 Mg Capsule, 1 TAB PO BID Prescribed by: SADAF WALSH on 09/09/18 1618 Ondansetron 8 Mg Tab.rapdis, 8 MG PO Q6H PRN for NAUSEA/VOMITING Prescribed by: FAMILIA ELISE on 01/31/16 1911 Ondansetron 4 Mg Tab.rapdis, 4 MG PO Q6H PRN for NAUSEA/VOMITING-1ST LINE Prescribed by: PAULA COLINDRES on 08/11/18 1232 Ondansetron 4 Mg Tab.rapdis, 4 MG PO Q6H PRN for NAUSEA/VOMITING Prescribed by: PAULA COLINDRES on 09/05/18 0534 Ondansetron 8 Mg Tab.rapdis, 8 MG PO Q6H Prescribed by: CHANTEL MAYORGA on 11/18/18 2325 Promethazine HCl 25 Mg Tablet, 25 MG PO Q6H PRN for NAUSEA/VOMITING Prescribed by: PUALA COLINDRES on 08/11/18 1232 Promethazine HCl 25 Mg Supp.rect, 25 MG RC Q6H Prescribed by: PAULA COLINDRES on 09/05/18 0534 Promethazine HCl 25 Mg Tablet, 25 MG PO Q6H PRN for NAUSEA/VOMITING Prescribed by: SADAF WALSH on 09/09/18 1605 Promethazine HCl 25 Mg Tablet, 25 MG PO Q8H PRN for NAUSEA/VOMITING Prescribed by: MARY BENTLEY on 10/01/18 0640 Promethazine HCl 25 Mg Supp.rect, 25 MG RC Q4H Prescribed by: CHANTEL MAYORGA on 11/18/18 232 Propranolol Hcl 10 Mg Tablet, 40 MG PO DAILY, (Reported) Scopolamine 1 Each Patch.td72, 1 EACH TD Q72 HOURS Prescribed by: CHANTEL MAYORGA on 11/18/18 232 Patient Home Medication List Home Medication List Reviewed: Yes Past Nmlhopb-Bhpggs-Twwmvo Hx Surgeries Surgeries: Bladder Surgery, Gallbladder, 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, Oophorectomy, Tubal Ligation Respiratory Respiratory Disorders: Asthma Neurological Neurological Disorders: Headaches /Migraines, Seizure Disorder 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 System 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 Genitourinary Genitourinary Disorders: Bladder Infection Musculoskeletal Musculoskeletal Disorders: Chronic Back Pain Psychosocial Behavioral Health Disorders: Anxiety, Depression Family Medical History Significant Family History: Heart Disease, Hypertension Family Medial History: Diabetes mellitus 19 FATHER FHx: brain tumor 19 MOTHER HPV infection G8 SISTER No Family History of: AIDS Abdominal aortic aneurysm Lublin's disease Alcoholism Alzheimer's disease Aphasia Arthritis Asthma Cancer of mouth Cardiovascular disease Cataracts Colon cancer Completed stroke Congenital disease Congenital heart disease Coronary thrombosis Cystic fibrosis Deafness or hearing loss Dementia Drug abuse Dysphasia Fibrocystic disease of breast Gastroenteritis Glaucoma Headache disorder Hypercholesterolemia Hypertension Infertility Kidney disease Myocardial infarction Neoplasm Not obtainable due to adoption Osteoporosis Parkinson's disease Prostate cancer Psychosocial problem Respiratory disorder Seizure disorder Severe allergy Thyroid disease Tuberculosis Visual disorder Review of Systems Constitutional: see HPI EENTM: no symptoms reported Respiratory: no symptoms reported Cardiovascular: no symptoms reported Gastrointestinal: see HPI Genitourinary: no symptoms reported Musculoskeletal: no symptoms reported Skin: no symptoms reported Psychiatric/Neurological: No Symptoms Reported Physical Exam General Appearance: No Apparent Distress, WD/WN HEENT: PERRL/EOMI, Pharynx Normal Neck: Full Range of Motion, Normal Inspection, Non Tender, Supple Respiratory: Chest Non Tender, No Accessory Muscle Use, No Respiratory Distress Cardiovascular: Regular Rate, Rhythm Gastrointestinal: Non Tender, Soft Rectal: Deferred Back: Normal Inspection, No CVA Tenderness Extremity: Normal Inspection, Normal Range of Motion, Non Tender Neurologic/Psychiatric: Alert, Oriented x3, No Motor/Sensory Deficits, Normal Mood/Affect, pony rougher II-XII Norm as Tested Skin: Normal Color, Warm/Dry Lymphatic: No Adenopathy Assessment/Plan Assessment/Plan Admission Diagonsis colitis, partial sbo Admission Status: Observation Assessment/Plan colitis, partial small bowel obstruction patient feeling better will get small bowel follow through to further evaluate sbo on zosyn for colitis, no significant tenderness would keep on clears for a couple days and advance as tolerates patient not septic patient wanting to go home Supervisory-Addendum Brief Verification & Attestation Participated in pt care: history, MDM, physical Personally performed: exam, history, MDM, supervision of care Care discussed with: Medical Student Procedures: n/a Results interpretation: Verified all documentation Verification and Attestation of Medical Student E/M Service A medical student performed and documented this service in my presence. I reviewed and verified all information documented by the medical student and made modifications to such information, when appropriate. I personally performed the physical exam and medical decision making. Penny Almazan, Jan 24, 2019,11:10 SAPNA PEREZ,MED STUDENT Jan 24, 2019 10:35 PENNY ALMAZAN DO Jan 24, 2019 11:02
[2019-01-24] MEDS ORDERED: DIATRIZOATE MEGLUM/SODIUM 37% 120 ML (GASTROGRAFIN) PO ONE (10:45)
--- NOTE | 2019-01-24 12:00 | NUR ---
PT OFF FLOOR DURING 1200 VS, PAIN AND IV ASSESSMENT.
--- NOTE | 2019-01-24 13:32 | Consultation - Hospitalist ---
HPI History of Present Illness: HPI/Chief Complaint The patient is a 43-year-old white female who reported that she been feeling well up until when she noted some burning left sided abdominal pain. This progressed to nausea with vomiting of reported feculent foul-smelling emesis. She denied blood. It been several days since her last bowel movement up until this morning post admission when she noted stool that was not hard nor was there evidence for blood. She noted associated abdominal distention but this was improved this morning compared to last night as well. She denied chills or fever and had had no previous diarrhea. She's had multiple abdominal surgeries in the past but nothing this year. This includes hysterectomy appendectomy and cholecystectomy. There is no history of malignancy reported. She had a similar admission 3 years ago she had panendoscopy at that time that revealed some polyps that were reportedly benign and did not require surgery. Date Seen 01/24/19 Attending Physician Vijay Gramajo DO [facility] Referring Physician Date of Admission Jan 23, 2019 at 22:30 Home Medications & Allergies Home Medications Reviewed patient Home Medication Reconciliation performed by pharmacy medication reconciliations staging technician and/or nursing. Patients Allergies have been reviewed. Allergies Allergies Coded Allergies morphine (Verified Allergy, Unknown, CAUSES "REBOUND HEADACHES", 08/20/13) baclofen (Verified Adverse Reaction, Severe, 06/13/15) PATIENT UNAWARE OF REACTION BUT WAS HOSPITALIZED AFTER TAKING MEDICATION AND WAS TOLD IT WAS A REACTION DUE TO THE MEDICATION SHE TOOK. meloxicam (Verified Adverse Reaction, Severe, 06/13/15) PATIENT UNAWARE OF REACTION BUT WAS HOSPITALIZED AFTER TAKING MEDICATION AND WAS TOLD IT WAS A REACTION DUE TO THE MEDICATION SHE TOOK. NSAIDS (Non-Steroidal Anti-Inflamma (Verified Adverse Reaction, Mild, have IBS and avoid NSAIDS, 12/04/12) Past Mzhwyip-Zelloo-Fupluw Hx Past Med/Social Hx: Reviewed and Corrections made Patient Social History Alcohol Use: Past History Recreational Drug Use: No (former hx) Drug of Choice: Marijuana Smoking Status: Former Smoker 2nd Hand Smoke Exposure: No Recent Foreign Travel: No Contact w/other who traveled: No Recent Hopitalizations: No Recent Infectious Disease Expo: No Immunizations Up To Date Tetanus Booster (TDap): More than 5yrs Pediatric: No Date of Pneumonia Vaccine: Mar 03, 2014 Date of Influenza Vaccine: Mar 03, 2015 Seasonal Allergies Seasonal Allergies: No Past Medical History Surgeries: Bladder Surgery, Gallbladder, 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, Oophorectomy, Tubal Ligation Currently Using CPAP: No Currently Using BIPAP: No Neurological: Headaches /Migraines, Seizure Disorder 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: Yes (HYST 2005--NO PHYSICIAN DOCUMENTATION OF ANY KIND OF CANCER) Sexually Transmitted Disease: Yes (HPV) HIV/AIDS: No 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 Disorders: Denies 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 Genitourinary: Bladder Infection Gastrointestinal: Irritable Bowel Musculoskeletal: Chronic Back Pain Loss of Vision: Denies Cancer: Cervical, Colon Psychosocial: Anxiety, Depression History of Blood Disorders: No Adverse Reaction to Blood [place]: No Family History Diabetes mellitus 19 FATHER FHx: brain tumor 19 MOTHER HPV infection G8 SISTER No Family History of: AIDS Abdominal aortic aneurysm [place]opa's disease Alcoholism Alzheimer's disease Aphasia Arthritis Asthma Cancer of mouth Cardiovascular disease Cataracts Colon cancer Completed stroke Congenital disease Congenital heart disease Coronary thrombosis Cystic fibrosis Deafness or hearing loss Dementia Drug abuse Dysphasia Fibrocystic disease of breast Gastroenteritis Glaucoma Headache disorder Hypercholesterolemia Hypertension Infertility Kidney disease Myocardial infarction Neoplasm Not obtainable due to adoption Osteoporosis Parkinson's disease Prostate cancer Psychosocial problem Respiratory disorder Seizure disorder Severe allergy Thyroid disease Tuberculosis Visual disorder Heart Disease, Hypertension Review of Systems Constitutional: see HPI Physical Exam Physical Exam Vital Signs Vital Signs - First Documented 01/23/19 17:43 Temp 100.3 Pulse 71 Resp 18 B/P (MAP) 96/63 (74) Pulse Ox 97 O2 Delivery Room Air Capillary Refill : Less Than 3 Seconds Height, Weight, BMI Height: 5'6.00" Weight: 203lbs. 6.4oz. 92.572607ai; 31.6 BMI Method:Stated General Appearance: No Apparent Distress, WD/WN HEENT: PERRL/EOMI, Pharynx Normal Neck: Full Range of Motion, Normal Inspection, Non Tender, Supple Respiratory: Chest Non Tender, No Accessory Muscle Use, No Respiratory Distress Cardiovascular: Regular Rate, Rhythm, No Edema, No Gallop, No Murmur Gastrointestinal: Other (Mild abdominal distention there is pain to palpation over the left mid and lower quadrants of the abdomen with some guarding but no rebound no masses or organomegaly noted.) Rectal: Deferred Back: Normal Inspection, No CVA Tenderness Extremity: Normal Inspection, Normal Range of Motion, Non Tender Neurologic/Psychiatric: Alert, Oriented x3, No Motor/Sensory Deficits, Normal 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 Assessment/Plan Assessment and Plan Assess & Plan/Chief Complaint A/P 1. Partial small bowel obstruction versus ileus possibly aggravated by constipation resolving. Colitis questionable melena. CT findings did not reveal any reported bowel wall thickening or evidence for diverticulitis continue antibiotics for now continue to monitor. Small bowel follow-through pending per Dr. Gramajo. Clinical Quality Measures DVT/VTE Risk/Contraindication: Risk Factor Score Per Nursin RFS Level Per Nursing on Admit: 2=Moderate DUNG CELESTIN MD Jan 24, 2019 13:32
[2019-01-24 16:01] VITALS: BP 102/58
--- NOTE | 2019-01-24 16:37 | Diagnostic Imaging Report ---
Small bowel follow-through. INDICATION: Small bowel obstruction. FINDINGS: The previous exam performed earlier today at 8:54 am noted a few air-fluid levels but failed to show any clear evidence for a bowel obstruction. For this exam the patient was given a mixture of Gastrografin and water. The initial film reveals that there is contrast in the stomach and the proximal small bowel. The delayed images do show that there is considerable distention of the small bowel by the contrast. However there does appear to be contrast within the right colon at 2 hours and 30 minutes. Normal transit time (30 minutes to 3 hours). IMPRESSION: There is generalized dilatation of the small bowel but there is no evidence for a complete small bowel obstruction. The dilated appearance of the small bowel could be related to an ileus. A followup exam would be recommended for continued evaluation. Dictated by: Dictated on workstation # [id number]
[2019-01-24 20:58] VITALS: BP 102/68
[2019-01-25 00:09] VITALS: BP 109/72
[2019-01-25] MEDS: NS W/KCL 20 MEQ/L 1,000 ML IV SCH ×3 (03:40→21:25)
[2019-01-25] MEDS: fentaNYL INJECTION 100 MCG/2 ML AMP IV PRN ×3 (04:09→11:27)
[2019-01-25] MEDS: PIPERACILLIN/TAZO 4.5 GM/NS 100 ML IV SCH ×6 (05:06→22:44)
[2019-01-25] MEDS: PANTOPRAZOLE 40 MG (PROTONIX) VIAL IV SCH (08:19)
[2019-01-25 08:27] VITALS: BP 123/71
--- NOTE | 2019-01-25 10:43 | Progress Note - Surgery ---
SAPNA PEREZ,MED STUDENT 01/25/19 1043: Subjective Date Seen by a Provider: Jan 25, 2019 Time Seen by a Provider: 08:30 Subjective/Events-last exam Patient is feeling better today and she is requesting to eat as she is currently NPO. Her abdominal pain is improved but she still reports some intermittent LLQ discomfort. She continues to have bowel movements and is passing flatus. Wanting to go home today. Focused Exam Lactate Level 01/23/19 20:15: Lactic Acid Level 2.77*H 01/23/19 22:29: Lactic Acid Level 1.81 01/24/19 05:38: Lactic Acid Level 1.20 Objective Exam Vital Signs Date Time Temp Pulse Resp B/P (MAP) Pulse Ox O2 Delivery O2 Flow Rate FiO2 01/25/19 08:27 97.9 62 16 123/71 (88) 97 Room Air 01/25/19 08:00 95 Room Air 01/25/19 00:09 98.1 72 20 109/72 (84) 98 Room Air 01/24/19 20:58 98.2 74 18 102/68 (79) 95 Room Air 01/24/19 19:55 Room Air 01/24/19 16:01 97.8 76 20 102/58 (73) 95 Room Air I & O 01/25/19 07:00 Intake Total 2040 ml Balance 2040 ml Capillary Refill : Less Than 3 Seconds General Appearance: No Apparent Distress, WD/WN HEENT: PERRL/EOMI, Pharynx Normal Neck: Full Range of Motion, Normal Inspection, Non Tender, Supple Respiratory: Chest Non Tender, No Accessory Muscle Use, No Respiratory Distress Cardiovascular: Regular Rate, Rhythm, No Edema Gastrointestinal: soft; No distended; tenderness (mild LLQ tenderness) Extremity: Normal Inspection, Normal Range of Motion, Non Tender Neurologic/Psychiatric: Alert, Oriented x3, No Motor/Sensory Deficits, Normal Mood/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, 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 Norm as Tested Skin: Normal Color, Warm/Dry Lymphatic: No Adenopathy Results Lab Microbiology 01/23/19 Blood Culture - Preliminary, Resulted No growth 01/23/19 Urine Culture - Final, Complete 3 or more isolates Assessment/Plan Assessment/Plan Assessment/Plan colitis, partial small bowel obstruction patient feeling better SBFT negative for obstruction on zosyn for colitis, continue on clears for a couple days and advance diet as tolerates patient not septic patient wanting to go home will discharge home today Clinical Quality Measures DVT/VTE Risk/Contraindication: Risk Factor Score Per Nursin RFS Level Per Nursing on Admit: 2=Moderate PENNY GRAMAJO DO 01/25/19 1054: Subjective Subjective/Events-last exam Feeling better today. Not having pain like she was. minimal llq pain. She is passing flatus and having bowel movements. SBFT no obstruction. Wanting to go home. Denies n/v fever sweats chills shortness of breath or chest pain. Objective Exam General Appearance: No Apparent Distress, WD/WN HEENT: PERRL/EOMI Neck: Full Range of Motion, Normal Inspection, Non Tender, Supple Respiratory: Chest Non Tender, No Accessory Muscle Use, No Respiratory Distress Cardiovascular: Regular Rate, Rhythm Gastrointestinal: soft; No distended; tenderness (minimal LLQ tenderness) Extremity: Normal Inspection, Normal Range of Motion, Non Tender Neurologic/Psychiatric: Alert, Oriented x3, No Motor/Sensory Deficits Skin: Normal Color, Warm/Dry Lymphatic: No Adenopathy Assessment/Plan Assessment/Plan Assessment/Plan colitis ascending colon, partial sbo patient start on clear liquids and stay on for couple days then advance if okay on clears dc home today will need endoscopy outpatient in approx 8 weeks after better. patient agrees with plan Final Diagnosis colitis, partial sbo Supervisory-Addendum Brief Verification & Attestation Participated in pt care: history, MDM, physical Personally performed: exam, history, MDM, supervision of care Care discussed with: Medical Student Procedures: n/a Results interpretation: Verified all documentation Verification and Attestation of Medical Student E/M Service A medical student performed and documented this service in my presence. I reviewed and verified all information documented by the medical student and made modifications to such information, when appropriate. I personally performed the physical exam and medical decision making. Penny Gramajo, Jan 25, 2019,10:54 SAPNA PEREZ,MED STUDENT Jan 25, 2019 10:43 PENNY GRAMAJO DO Jan 25, 2019 10:54
[2019-01-25] MEDS ORDERED: AMOX-358 PO (10:46)
--- NOTE | 2019-01-25 10:50 | Discharge Inst-Simple/Standard ---
Discharge Inst-Standard Discharge Medications New, Converted or Re-Newed RX: Transmitted to Pharmacy Patient Instructions/Follow Up Plan of Care/Instructions/FU: 3 weeks Avila any issues before then be seen at that time. Activity as Tolerated: Yes Discharge Diet: Liquid Diet (for 2 more days then slowly advance as tolerates.) Other Inst to Patient Follow up Appt: Make appointment for 3 week. Instructions: Use incentive spirometer at home as directed. No Smoking Symptoms to Report: Appetite Changes, Extremity Discoloration, Numbness/Tingling, Swelling Incre ased, Bleeding Excessive, Eyesight Changes, Pain Increased, Urine Color Change, Constipation(Persistent), Fever over 101 degree F, Pain/Pressure in chest, Urinating Difficulty, Cough Up/Vomit Blood, Heart Beat Irreg/Pounding, Pain/Pressure in jaw, Vaginal Bleeding Increase, Cramps in feet or legs, Lightheadedness, Pain/Pressure in shoulder, Diarrhea(Persistent), Memory Changes Suddenly, Questions/Concerns, Weight gain consecutive days, Dizziness/Fainting, Nausea/Vomiting, Shortness of Breath, Weight gain over 2 pounds If questions or concerns contact your physician Or seek help at emergency department. PENNY ALMAZAN DO Jan 25, 2019 10:50
[2019-01-25] MEDS: ONDANSETRON 4 MG/2 ML (SDV) Z0FRAN IV PRN (12:46)
--- NOTE | 2019-01-25 14:25 | NUR ---
DR ALMAZAN NOTIFIED OF PT NAUSEATED AFTER CLEAR LIQUID TRAY. PT REQUESTING PAIN MEDICATION FOR PAIN 01/10. DR ALMAZAN GAVE ORDERS TO D/C IV FENTANYL AND TO PLACE PT NPO. ORDER RECEIVED FOR VICODIN 5MG Q6HR. PT UPDATED ON PLAN OF CARE
[2019-01-25] MEDS: HYDROcodone/APAP 5 MG/325 MG (LORTAB) TAB PO PRN ×2 (15:15→23:51)
[2019-01-25 16:00] VITALS: BP 140/74
[2019-01-25] MEDS: FAMOTIDINE 20MG/2ML IV (PEPCID) IV PRN (20:17)
[2019-01-26 00:24] VITALS: BP 131/86
[2019-01-26] MEDS: NS W/KCL 20 MEQ/L 1,000 ML IV SCH ×4 (04:04→20:06)
[2019-01-26] MEDS: PIPERACILLIN/TAZO 4.5 GM/NS 100 ML IV SCH ×6 (05:50→21:44)
[2019-01-26] MEDS: ONDANSETRON 4 MG/2 ML (SDV) Z0FRAN IV PRN ×3 (05:54→23:29)
[2019-01-26] MEDS: HYDROcodone/APAP 5 MG/325 MG (LORTAB) TAB PO PRN ×3 (06:36→21:44)
[2019-01-26 08:00] VITALS: BP 128/64
[2019-01-26] MEDS: PANTOPRAZOLE 40 MG (PROTONIX) VIAL IV SCH (08:08)
[2019-01-26 08:16] LABS: HEMOGLOBIN 10.3 G/DL (11.5-16.0); MEAN PLATELET VOLUME 8.8 FL (7.4-10.4); RED CELL DISTRIBUTION WIDTH 16.4 % (10.0-14.5); WHITE BLOOD COUNT 4.2 10^3/uL (4.3-11.0)
[2019-01-26 08:31] LABS: BUN/CREATININE RATIO 5; CALCIUM 8.2 MG/DL (8.5-10.1); CARBON DIOXIDE 21 MMOL/L (21-32); CHLORIDE 112 MMOL/L (98-107); GFR ESTIMATED > 60; GLUCOSE 86 MG/DL (70-105); POTASSIUM 3.9 MMOL/L (3.6-5.0); SODIUM 142 MMOL/L (135-145)
--- NOTE | 2019-01-26 10:29 | Progress Note - Hospitalist ---
Subjective HPI/CC On Admission Date Seen by Provider: Jan 26, 2019 Time Seen by Provider: 09:00 The patient is a 43-year-old white female who reported that she been feeling well up until when she noted some burning left sided abdominal pain. This progressed to nausea with vomiting of reported feculent foul-smelling emesis. She denied blood. It been several days since her last bowel movement up until this morning post admission when she noted stool that was not hard nor was there evidence for blood. She noted associated abdominal distention but this was improved this morning compared to last night as well. She denied chills or fever and had had no previous diarrhea. She's had multiple abdominal surgeries in the past but nothing this year. This includes hysterectomy appendectomy and cholecystectomy. There is no history of malignancy reported. She had a similar admission 3 years ago she had panendoscopy at that time that revealed some polyps that were reportedly benign and did not require surgery. Focused Exam Lactate Level 01/23/19 20:15: Lactic Acid Level 2.77*H 01/23/19 22:29: Lactic Acid Level 1.81 01/24/19 05:38: Lactic Acid Level 1.20 Objective Exam Vital Signs Vital Signs Date Time Temp Pulse Resp B/P (MAP) Pulse Ox O2 Delivery O2 Flow Rate FiO2 01/26/19 08:00 98.0 83 16 128/64 (85) 97 Room Air 01/24/19 08:00 Capillary Refill : Less Than 3 SecondsLess Than 3 Seconds Results/Procedures Lab Laboratory Tests 01/26/19 08:09 Patient resulted labs reviewed. Clinical Quality Measures DVT/VTE Risk/Contraindication: Risk Factor Score Per Nursin RFS Level Per Nursing on Admit: 2=Moderate JOSE RUIZ DO Jan 26, 2019 10:29
[2019-01-26] MEDS ORDERED: TIZA4TAB4 PO (10:58)
[2019-01-26] MEDS ORDERED: AMLO2.5T4 PO (10:58)
[2019-01-26] MEDS ORDERED: AMIT10TA6 PO (10:58)
[2019-01-26] MEDS ORDERED: DICY20TA10 PO (10:58)
[2019-01-26] MEDS ORDERED: PROP80TA3 PO (10:58)
--- NOTE | 2019-01-26 11:05 | NUR ---
SPOKE WITH THE PATIENT ABOUT HER MEDICATIONS. SHE LISTED WHAT SHE IS TAKING. I CALLED [facility] TO VERIFY WHAT HAS BEEN FILLED. [facility] FILLED: 01-19-19 TIZANIDINE 4MG BID PRN 01-19-19 DICYCLOMINE 20MG QID 12-18-18 AMITRIPTYLINE 10MG HS #30 08-08-18 PROPRANOLOL 80MG BID #60 06-10-18 AMLODIPINE 2.5MG DAILY #30 SHE STATES SHE DOES NOT HAVE ANY OF THE NAUSEA MEDICATIONS OR OTHER MEDS ON HER FILE FROM PREVIOUS ADMISSION. I CALLED [facility] AND THOUGH THEY HAVE SEVERAL SCRIPTS THAT HAVE BEEN CALLED IN FOR HER THEY ARE ALL ON HOLD. SHE HAS NOT PICKED ANYTHING UP FROM [facility] SINCE AUGUST.
--- NOTE | 2019-01-26 11:08 | Progress Note - Hospitalist ---
[facility] 01/26/19 1108: Subjective HPI/CC On Admission Date Seen by Provider: Jan 26, 2019 Time Seen by Provider: 07:45 The patient is a 43-year-old white female who reported that she been feeling well up until when she noted some burning left sided abdominal pain. This progressed to nausea with vomiting of reported feculent foul-smelling emesis. She denied blood. It been several days since her last bowel movement up until this morning post admission when she noted stool that was not hard nor was there evidence for blood. She noted associated abdominal distention but this was improved this morning compared to last night as well. She denied chills or fever and had had no previous diarrhea. She's had multiple abdominal surgeries in the past but nothing this year. This includes hysterectomy appendectomy and cholecystectomy. There is no history of malignancy reported. She had a similar admission 3 years ago she had panendoscopy at that time that revealed some polyps that were reportedly benign and did not require surgery. Subjective/Events-last exam Patient was alert and oriented and seemed to be in pain. Patient stated her abdomen hurt and it was an 8/10 Patient is NPO Urinating and having bowel movements (states it is watery). ROS: denies chest pain, SOB and has abdominal pain, feels Nauseas and like she will vomit Heart: HRRR Lungs: LCTAB Abdomen: tender to touch, bowel sound present Vitals: stable Labs: HgB 10.3 and WBC 4.2 Imaging: Surgery may follow up with additional imaging General surgery is monitoring patient Focused Exam Lactate Level 01/23/19 20:15: Lactic Acid Level 2.77*H 01/23/19 22:29: Lactic Acid Level 1.81 01/24/19 05:38: Lactic Acid Level 1.20 Respiratory: Chest Non Tender, Lungs Clear, Normal Breath Sounds, No Accessory Muscle Use, No Respiratory Distress Cardiovascular: Regular Rate, Rhythm, No Edema, No JVD Peripheral Pulses: 2+ Radial Pulses (R), 2+ Radial Pulses (L) Skin: normal color Objective Exam Vital Signs Vital Signs Date Time Temp Pulse Resp B/P (MAP) Pulse Ox O2 Delivery O2 Flow Rate FiO2 01/26/19 08:00 Room Air 01/26/19 08:00 98.0 83 16 128/64 (85) 97 01/24/19 08:00 Capillary Refill : Less Than 3 SecondsLess Than 3 Seconds General Appearance: No Apparent Distress, WD/WN, Mild Distress Neck: Full Range of Motion, Normal Inspection Respiratory: Chest Non Tender, Lungs Clear, Normal Breath Sounds, No Accessory Muscle Use, No Respiratory Distress Cardiovascular: Regular Rate, Rhythm, No Edema, No JVD Gastrointestinal: Tenderness, Other (Bowel sounds present, patient states pain all over 8/10) Extremity: Normal Capillary Refill Neurologic/Psychiatric: Alert, Oriented x3 Results/Procedures Lab Laboratory Tests 01/26/19 08:09 Patient resulted labs reviewed. Assessment/Plan Assessment and Plan Assess & Plan/Chief Complaint Assessment: Colitis Plan: Patient is being monitored by General surgery and may have follow up imaging before discharge. Clinical Quality Measures DVT/VTE Risk/Contraindication: Risk Factor Score Per Nursin RFS Level Per Nursing on Admit: 2=Moderate HYUN SALVADOR DO 01/26/19 2010: Subjective Subjective/Events-last exam Dr. Gramajo is managing this issue, the abdominal pain continues Has been trying to DC the pt for two days Will re CT scan her today Seizure meds will be reviewed Bowel obstruction seems to be resolved but unsure why she is having so much pain Review of Systems General: Fatigue Gastrointestinal: Abdominal Pain Objective Exam General Appearance: No Apparent Distress, WD/WN Respiratory: Chest Non Tender, Lungs Clear, Normal Breath Sounds, No Accessory Muscle Use, No Respiratory Distress Cardiovascular: Regular Rate, Rhythm, No Edema, No Gallop, No JVD, No Murmur, Normal Peripheral Pulses Neurologic/Psychiatric: Alert, Oriented x3, No Motor/Sensory Deficits, Normal Mood/Affect Assessment/Plan Assessment and Plan Assess & Plan/Chief Complaint Assessment: Abdominal pain Colitis Plan: ReCT scan Appreciate Dr Gramajo's expertise Diagnosis/Problems Diagnosis/Problems (1) Sepsis Status: Acute (2) Bowel obstruction Status: Acute (3) Colitis (4) Nausea and vomiting Status: Acute (5) Headache Status: Acute (6) Hypokalemia Status: Acute (7) Leukocytosis Status: Acute Supervisory-Addendum Brief Verification & Attestation Participated in pt care: history, MDM, physical Personally performed: exam, history, MDM, supervision of care Care discussed with: Medical Student Procedures: n/a Results interpretation: Verified all documentation Verification and Attestation of Medical Student E/M Service A medical student performed and documented this service in my presence. I reviewed and verified all information documented by the medical student and made modifications to such information, when appropriate. I personally performed the physical exam and medical decision making. Hyun Salvador, Jan 26, 2019,20:[address] [facility] Jan 26, 2019 11:08 HYUN SALVADOR DO Jan 26, 2019 20:10
--- NOTE | 2019-01-26 11:56 | Progress Note - Surgery ---
ANASAPNA,MED STUDENT 01/26/19 1156: Subjective Date Seen by a Provider: Jan 26, 2019 Time Seen by a Provider: 07:00 Subjective/Events-last exam Prior to planned discharge yesterday, patient developed increasing diffuse abdominal pain after drinking clear liquids. She was made NPO and given pain medication. Today she complains continuing diffuse abdominal pain which she rates as an 8/10. She states that nothing makes the pain better. She also reports several episodes of diarrhea yesterday. Denies fever, chills, vomiting, chest pain, or shortness of breath. No family at bedside. Focused Exam Lactate Level 01/23/19 20:15: Lactic Acid Level 2.77*H 01/23/19 22:29: Lactic Acid Level 1.81 01/24/19 05:38: Lactic Acid Level 1.20 Objective Exam Vital Signs Date Time Temp Pulse Resp B/P (MAP) Pulse Ox O2 Delivery O2 Flow Rate FiO2 01/26/19 08:00 Room Air 01/26/19 08:00 98.0 83 16 128/64 (85) 97 Room Air 01/26/19 00:24 97.8 75 18 131/86 (101) 97 Room Air 01/25/19 20:00 Room Air 01/25/19 16:00 98.6 68 18 140/74 (96) 99 Room Air I & O 01/26/19 07:00 Intake Total 218 ml Balance 218 ml Capillary Refill : Less Than 3 SecondsLess Than 3 Seconds General Appearance: No Apparent Distress, WD/WN HEENT: PERRL/EOMI, Pharynx Normal Neck: Full Range of Motion, Normal Inspection Respiratory: Chest Non Tender, No Accessory Muscle Use, No Respiratory Distress Cardiovascular: Regular Rate, Rhythm, No Edema Peripheral Pulses: 2+ Radial Pulses (R), 2+ Radial Pulses (L) Gastrointestinal: soft; No distended; tenderness (mild diffuse abdominal tenderness) Extremity: Normal Capillary Refill Neurologic/Psychiatric: Alert, Oriented x3 Skin: Normal Color, Warm/Dry Lymphatic: No Adenopathy Results Lab Laboratory Tests 01/26/19 08:09: White Blood Count 4.2L, Red Blood Count 3.56L, Hemoglobin 10.3L, Hematocrit 33L, Mean Corpuscular Volume 92, Mean Corpuscular Hemoglobin 29, Mean Corpuscular Hemoglobin Concent 31L, Red Cell Distribution Width 16.4H, Platelet Count 271, Mean Platelet Volume 8.8, Sodium Level 142, Potassium Level 3.9, Chloride Level 112H, Carbon Dioxide Level 21, Anion Gap 9, Blood Urea Nitrogen 3L, Creatinine 0.60, Estimat Glomerular Filtration Rate > 60, BUN/Creatinine Ratio 5, Glucose Level 86, Calcium Level 8.2L Microbiology 01/23/19 Blood Culture - Preliminary, Resulted No growth 01/23/19 Urine Culture - Final, Complete 3 or more isolates Assessment/Plan Assessment/Plan Assessment/Plan colitis ascending colon, partial sbo will repeat CT due to ongoing abdominal pain will need endoscopy outpatient in approx 8 weeks once resolved. patient agrees with plan Clinical Quality Measures DVT/VTE Risk/Contraindication: Risk Factor Score Per Nursin RFS Level Per Nursing on Admit: 2=Moderate VIJAY GRAMAJO DO 01/26/192128: Subjective Subjective/Events-last exam Increasing abdominal pain. Now all over. Worse with liquids. Some diarrhea yesterday but improved today so far. No other complaints. Objective Exam General Appearance: No Apparent Distress HEENT: PERRL/EOMI Neck: Full Range of Motion Respiratory: Chest Non Tender, No Accessory Muscle Use, No Respiratory Distress Cardiovascular: Regular Rate, Rhythm, No Edema Gastrointestinal: soft, tenderness ( diffuse abdominal tenderness) Neurologic/Psychiatric: Alert, Oriented x3 Skin: Normal Color, Warm/Dry Lymphatic: No Adenopathy Assessment/Plan Assessment/Plan Assessment/Plan colitis ascending colon, partial sbo, diffuse abdominal pain since worsening pain will repeat ct scan abd/pelvis to further evaluate add flagyl bowel rest IV fluids hold discharge at this time. Supervisory-Addendum Brief Verification & Attestation Participated in pt care: history, MDM, physical Personally performed: exam, history, MDM, supervision of care Care discussed with: Medical Student Procedures: n/a Results interpretation: Verified all documentation Verification and Attestation of Medical Student E/M Service A medical student performed and documented this service in my presence. I reviewed and verified all information documented by the medical student and made modifications to such information, when appropriate. I personally performed the physical exam and medical decision making. Vijay Gramajo, Jan 26, 2019,21:28 SAPNA PEREZ,MED STUDENT Jan 26, 2019 11:56 VIJAY GRAMAJO DO Jan 26, 2019 21:29
[2019-01-26] MEDS ORDERED: HOLD METFORMIN - RECEIVED CONTRAST 20 ML VIAL IV SCH (13:30)
[2019-01-26] MEDS ORDERED: CATHETER FLUSH 10 ML SYR IV PRN (13:30)
[2019-01-26] MEDS ORDERED: NS 100 ML (IVPB) BAG IV ONE (13:30)
[2019-01-26] MEDS ORDERED: IOHEXOL 350 MG/ML 100 ML (OMNIPAQUE 350) VIAL IV ONE (13:30)
--- NOTE | 2019-01-26 15:13 | NUR ---
Offered quiet, compassionate presence as pt appeared tired. Engaged briefly, introduced self and asked if she needed anything before closing the door and turning off the lights for pt to rest. No concerns expressed. No spiritual affiliation known at this time.
[2019-01-26 17:03] VITALS: BP 147/83
--- NOTE | 2019-01-26 17:26 | Diagnostic Imaging Report ---
PROCEDURE: CT abdomen and pelvis with contrast. TECHNIQUE: Multiple contiguous axial images were obtained through the abdomen and pelvis after administration of intravenous contrast. Auto Exposure Controls were utilized during the CT exam to meet ALARA standards for radiation dose reduction. INDICATION: Diffuse abdominal pain. COMPARISON: January 23, 2019. FINDINGS: Small bibasilar pleural effusions, new since the prior examination. Visualized lung bases are otherwise clear. Cholecystectomy. The liver, spleen, adrenal glands, and pancreas are unremarkable. The kidneys are unremarkable. No aneurysmal dilatation of the abdominal aorta. The urinary bladder is unremarkable. The uterus is not visualized, likely surgically absent. No abnormal adnexal mass lesion. Previously noted distention of the large and small bowel has resolved since the prior examination. However, scattered loops of mural thickening are noted within loops of large and small bowel. This is most prominent associated with the descending and sigmoid colon. The appendix is not definitely visualized. Small amount of free fluid is noted within the lower pelvis, particularly on the right. This has developed since the prior examination. No significant adenopathy or free air. No acute osseous abnormality. IMPRESSION: Scattered regions of mural thickening within the large and small bowel, particularly the descending and sigmoid colon. Findings are favored to relate to underlying enteritis/colitis. Previously noted large and small bowel distention has resolved. No evidence of bowel obstruction on the current examination. Interval development of a small amount of free fluid within the lower pelvis. Interval development of small bibasilar pleural effusions. Dictated by: Dictated on workstation # [id number]
[2019-01-26] MEDS: metroNIDAZOLE 500MG/100ML IVPB 100 ML IV SCH (18:21)
[2019-01-26] MEDS: FAMOTIDINE 20MG/2ML IV (PEPCID) IV PRN (20:06)
[2019-01-26 23:20] VITALS: BP 185/96
[2019-01-27] MEDS: metroNIDAZOLE 500MG/100ML IVPB 100 ML IV SCH ×3 (03:14→19:03)
[2019-01-27] MEDS: NS W/KCL 20 MEQ/L 1,000 ML IV SCH ×4 (04:36→23:24)
[2019-01-27] MEDS: HYDROcodone/APAP 5 MG/325 MG (LORTAB) TAB PO PRN ×4 (04:39→23:46)
[2019-01-27] MEDS: PIPERACILLIN/TAZO 4.5 GM/NS 100 ML IV SCH ×6 (06:19→23:51)
[2019-01-27 06:37] LABS: BASOPHILS % (AUTO) 0 % (0-10); EOSINOPHILS % (AUTO) 0 % (0-10); HEMATOCRIT 33 % (35-52); HEMOGLOBIN 10.6 G/DL (11.5-16.0); LYMPHOCYTES # (AUTO) 1.1 X 10^3 (1.0-4.0); LYMPHOCYTES % (AUTO) 21 % (12-44); MEAN CORPUSCULAR HEMOGLOBIN 29 PG (25-34); MEAN CORPUSCULAR HGB CONC 32 G/DL (32-36); MEAN CORPUSCULAR VOLUME 91 FL (80-99); MONOCYTES # (AUTO) 0.4 X 10^3 (0.0-1.0); MONOCYTES % (AUTO) 8 % (0-12); NEUTROPHILS # (AUTO) 3.7 X 10^3 (1.8-7.8); NEUTROPHILS % (AUTO) 70 % (42-75); PLATELET COUNT 310 10^3/uL (130-400); RED CELL DISTRIBUTION WIDTH 16.5 % (10.0-14.5); WHITE BLOOD COUNT 5.3 10^3/uL (4.3-11.0)
[2019-01-27 07:03] LABS: ALANINE AMINOTRANSFERASE 47 U/L (0-55); ALBUMIN 3.2 GM/DL (3.2-4.5); ALKALINE PHOSPHATASE 84 U/L (40-136); BILIRUBIN,TOTAL 0.3 MG/DL (0.1-1.0); BUN/CREATININE RATIO 3; CALCIUM 8.4 MG/DL (8.5-10.1); CARBON DIOXIDE 17 MMOL/L (21-32); CHLORIDE 108 MMOL/L (98-107); CREATININE SERUM 0.62 MG/DL (0.60-1.30); GFR ESTIMATED > 60; GLUCOSE 85 MG/DL (70-105); SODIUM 139 MMOL/L (135-145); TOTAL PROTEIN 5.8 GM/DL (6.4-8.2)
[2019-01-27 08:00] VITALS: BP 170/90
[2019-01-27] MEDS: PANTOPRAZOLE 40 MG (PROTONIX) VIAL IV SCH (08:59)
[2019-01-27] MEDS: ONDANSETRON 4 MG/2 ML (SDV) Z0FRAN IV PRN ×3 (09:10→23:06)
[2019-01-27] MEDS: ENOXAPARIN 40 MG/0.4 ML (LOVENOX) SYR SC SCH (09:39)
--- NOTE | 2019-01-27 09:59 | Physical Therapy Evaluation ---
PT Evaluation-General Medical Diagnosis Admission Date Jan 23, 2019 at 22:30 Medical Diagnosis: sepsis/SBO Onset Date: Jan 23, 2019 Therapy Diagnosis Therapy Diagnosis: debility Height/Weight Height (Feet): 5 Height (Inches): 6.00 Weight (Pounds): 203 Weight (Ounces): 6.4 Precautions Precautions/Isolations: Standard Precautions Weight Bear Status Right Lower Extremity: Right Weight Bearing/Tolerated Left Lower Extremity: Left Weight Bearing/Tolerated Referral Physician: Madeleine Reason for Referral: Evaluation/Treatment Medical History Additional Medical History seizures/IBS/cervical/colon cancer Current History ER secondary to vomiting feces Reviewed History: Yes Social History Home: Single Level Prior/Core FIM Prior Level of Function Therapy Code Descriptions/Definitions Functional [place] Measure: 0=Not Assessed/NA 4=Minimal Assistance 1=Total Assistance 5=Supervision or Setup 2=Maximal Assistance 6=Modified [place] 3=Moderate Assistance 7=Complete [place] Therapy Quality Codes: 6 Independent with activity with or without an assistive device 5 Patient requires set up or clean up by helper. Patient completes activity by themselves 4 Supervision or touching assist (CGA). [place] provide cues , steadying assist 3 The helper provides less than half the effort to complete the activity 2 The helper provides more than half the effort to complete the activity 1 Dependent. The helper does all the effort to complete an activity 7 Patient refused to complete or attempt activity 9 The patient did not perform the activity before the current illness or injury 88 Not attempted due to Medical conditions or safety concerns Functional Abilities and Goals: Independent: Patient completed the activities by him/herself, with or without an assistive device, with no assistance from a helper. Needed Some Help: Patient needed partial assistance from another person to complete activities. Dependent: A helper completed the activities for the patient. Unknown: Not Applicable: Bed Mobility: 7 Transfers (B,C,W/C) (FIM): 7 Gait: 7 Stairs: 7 Indoor Mobility (Ambulation): Independent Stairs: Independent Prior Devices Use: None PT Evaluation-Current Subjective Patient is in bed and agrees to PT. Pain Numeric Pain Scale: 5-Moderate Pain Location Body Site: Abdomen Pain Description: Ache Objective Patient Orientation: Normal For Age Problem Solving: Good Attachments: IV ROM/Strength ROM Lower Extremities bilateral LE WFL Strength Lower Extremities 5/5 grossly bilateral LE Integumentary/Posture Integumentary refer to nursing notes Bowel Incontinence: No Bladder Incontinence: No Posture WFL Neuromuscular (Tone, Coordination, Reflexes) grossly intact Sensory Vision: Functional Hearing: Functional Sensation Right Lower Extremit: Intact Sensation Left Lower Extremity: Intact Transfers Therapy Code Descriptions/Definitions Functional [place] Measure: 0=Not Assessed/NA 4=Minimal Assistance 1=Total Assistance 5=Supervision or Setup 2=Maximal Assistance 6=Modified [place] 3=Moderate Assistance 7=Complete [place] Transfers (B, C, W/C) (FIM): 7 Scootin Rollin Supine to/from Sit: 7 Sit to/from Stand: 7 Gait Mode of Locomotion: Walk Anticipated Mode of Locomotion: Walk Gait (FIM): 7 Distance (FIM): 3=150 ft Distance: 600' Gait Level of Assist: 7 Gait Assistive Device: None Comments/Gait Description safe and functional Balance Sitting Static: Normal Sitting Dynamic: Normal Standing Static: Normal Standing Dynamic: Normal Assessment/Needs 43 y.o. female, is currently at [facility] with all gross motor skills and does not require skilled therapy intervention. Thank you for this referral. Rehab Potential: Fair Post Rehab Potential-Barriers: compliance PT Plan Treatment/Plan Treatment Plan: Discontinue PT, goals met Treatment Plan: Other Treatment Duration: Jan 27, 2019 Frequency: 1 time per week Estimated Hrs Per Day: .25 hour per day Patient and/or Family Agrees t: Yes Discharge Recommendations Therapy D/C Recommendations: Home Independently Time/GCodes Time In: 942 Time Out: 952 Total Billed Treatment Time: 10 Total Billed Treatment 1 visit EVLowC 10 min WILBERT DEL ROSARIO PT Jan 27, 2019 09:59
--- NOTE | 2019-01-27 10:27 | Progress Note - Hospitalist ---
[facility] 01/27/19 1027: Subjective HPI/CC On Admission Date Seen by Provider: Jan 27, 2019 Time Seen by Provider: 07:45 The patient is a 43-year-old white female who reported that she been feeling well up until when she noted some burning left sided abdominal pain. This progressed to nausea with vomiting of reported feculent foul-smelling emesis. She denied blood. It been several days since her last bowel movement up until this morning post admission when she noted stool that was not hard nor was there evidence for blood. She noted associated abdominal distention but this was improved this morning compared to last night as well. She denied chills or fever and had had no previous diarrhea. She's had multiple abdominal surgeries in the past but nothing this year. This includes hysterectomy appendectomy and cholecystectomy. There is no history of malignancy reported. She had a similar admission 3 years ago she had panendoscopy at that time that revealed some polyps that were reportedly benign and did not require surgery. Subjective/Events-last exam Pt is alert and oriented, no acute distress Pt states she is in pain and rates it a 8/10 She is currently NPO Pt was vomiting last night and described it as foamy Pt has been staying in bed and not moving much ROS: Denied chest pain, SOB, chills or fever but has a slight migraine Heart: HRRR Lungs: LCTAB Abdomen: when lightly pressing on belly no pain was noted. Bowel sounds were decreased. Labs: Stable Vitals: Patients BP was elevated but the last BP was taken on 01/26. Need a BP recheck. Remainder of vitals stable. Imagining: showed colitis but had resolving large and small bowel distention. Plan: have patient moving around and use PT, continue to monitor GI consultations and course of action. Patient will be start of DVT prophylaxis. Focused Exam Respiratory: Chest Non Tender, Lungs Clear, Normal Breath Sounds, No Accessory Muscle Use, No Respiratory Distress Cardiovascular: Regular Rate, Rhythm, No Edema, No JVD, No Murmur Peripheral Pulses: 2+ Radial Pulses (R), 2+ Radial Pulses (L) Skin: normal color, warm/dry Objective Exam Vital Signs Vital Signs Date Time Temp Pulse Resp B/P (MAP) Pulse Ox O2 Delivery O2 Flow Rate FiO2 01/26/19 23:20 98.8 99 20 185/96 (125) 100 Room Air 01/24/19 08:00 Capillary Refill : Less Than 3 SecondsLess Than 3 Seconds General Appearance: No Apparent Distress, WD/WN Neck: Full Range of Motion Respiratory: Chest Non Tender, Lungs Clear, Normal Breath Sounds, No Accessory Muscle Use, No Respiratory Distress Cardiovascular: Regular Rate, Rhythm, No Edema, No JVD Gastrointestinal: Distended, Other (decreased bowel sounds but no pain noted on light palpation ) Neurologic/Psychiatric: Alert, Oriented x3 Skin: Normal Color, Warm/Dry Results/Procedures Lab Laboratory Tests 01/27/19 06:02 Patient resulted labs reviewed. Assessment/Plan Assessment and Plan Assess & Plan/Chief Complaint Assessment: 1. Colitis 2. Seizures Plan: 1. Continue GI service and monitor follow up. 2. Continue to monitor labs and vitals 3. Contact if BP continues to increase and systolic>180 and or diastolic>100 4. Have patient work with PT 5. Start DVT prophylaxis 6. Finish current ABX regimen 7. Pt is still NPO 8. Continue to monitor for seizure activity Clinical Quality Measures DVT/VTE Risk/Contraindication: Risk Factor Score Per Nursin RFS Level Per Nursing on Admit: 2=Moderate HYUN SALVADOR DO 01/27/191945: Subjective Subjective/Events-last exam Had vomiting yesterday. Lovenox will be initiated 40 Mg subQ daily for DVT prophylaxis. PT will be ordered. Labs reviewed. Colitis noted on CT scan. Maintain in empiric antibiotics of Zosyn. NPO now. Reports 8/10 abdominal pain ranking but Pt does not appear to be in any stress since she was sleeping. Bowels sounds are a little bit decreased. Review of Systems General: Fatigue Gastrointestinal: Nausea, Vomiting, Abdominal Pain Objective Exam General Appearance: No Apparent Distress, WD/WN, Chronically ill, Obese Respiratory: Chest Non Tender, Lungs Clear, Normal Breath Sounds, No Accessory Muscle Use, No Respiratory Distress Cardiovascular: Regular Rate, Rhythm, No Edema, No Gallop, No JVD, No Murmur, Normal Peripheral Pulses Gastrointestinal: Distended, Tenderness Neurologic/Psychiatric: Alert, Oriented x3, No Motor/Sensory Deficits, Normal Mood/Affect Assessment/Plan Assessment and Plan Assess & Plan/Chief Complaint NPO IVF Abx Appreciate Dr Gramajo Diagnosis/Problems Diagnosis/Problems (1) Sepsis Status: Acute (2) Bowel obstruction Status: Acute (3) Leukocytosis Status: Acute (4) Nausea and vomiting Status: Acute (5) Headache Status: Acute (6) Colitis (7) Hypokalemia Status: Acute (8) Dehydration Status: Acute Supervisory-Addendum Brief Verification & Attestation Participated in pt care: history, MDM, physical Personally performed: exam, history, MDM, supervision of care Care discussed with: Medical Student Procedures: n/a Results interpretation: Verified all documentation Verification and Attestation of Medical Student E/M Service A medical student performed and documented this service in my presence. I reviewed and verified all information documented by the medical student and made modifications to such information, when appropriate. I personally performed the physical exam and medical decision making. Hyun Salvador, Jan 27, 2019,19:46 [facility] Jan 27, 2019 10:27 HYUN SALVADOR DO Jan 27, 2019 19:46
[2019-01-27 16:29] VITALS: BP 194/107
--- NOTE | 2019-01-27 16:54 | Progress Note - Surgery ---
Subjective Date Seen by a Provider: Jan 27, 2019 Time Seen by a Provider: 16:50 Subjective/Events-last exam still with abdominal pain diffuse. most of time she states is 01/10. Having nausea and having vomiting of foamy stuff. Objective Exam Vital Signs Date Time Temp Pulse Resp B/P (MAP) Pulse Ox O2 Delivery O2 Flow Rate FiO2 01/27/19 16:29 99.7 99 20 194/107 (136) 97 Room Air 01/27/19 08:00 97.4 100 16 170/90 (116) 94 Room Air 01/27/19 08:00 Room Air 01/26/19 23:20 98.8 99 20 185/96 (125) 100 Room Air 01/26/19 20:00 Room Air 01/26/19 17:03 98.0 81 16 147/83 (104) 98 Room Air I & O 01/27/19 07:00 Intake Total 1000 ml Output Total 1200 ml Balance -200 ml Capillary Refill : Less Than 3 SecondsLess Than 3 Seconds General Appearance: No Apparent Distress, WD/WN HEENT: PERRL/EOMI, Pharynx Normal Neck: Full Range of Motion Respiratory: Chest Non Tender, Normal Breath Sounds, No Accessory Muscle Use, No Respiratory Distress Cardiovascular: Regular Rate, Rhythm, No Edema, No JVD Peripheral Pulses: 2+ Radial Pulses (R), 2+ Radial Pulses (L) Gastrointestinal: soft; No distended, No guarding, No rebound; tenderness ( diffuse abdominal tenderness) Extremity: Normal Inspection, Normal Range of Motion, Non Tender Neurologic/Psychiatric: Alert, Oriented x3 Skin: Normal Color, Warm/Dry Lymphatic: No Adenopathy Results Lab Laboratory Tests 01/27/19 06:02: White Blood Count 5.3, Red Blood Count 3.67L, Hemoglobin 10.6L, Hematocrit 33L, Mean Corpuscular Volume 91, Mean Corpuscular Hemoglobin 29, Mean Corpuscular Hemoglobin Concent 32, Red Cell Distribution Width 16.5H, Platelet Count 310, Mean Platelet Volume 9.0, Neutrophils (%) (Auto) 70, Lymphocytes (%) (Auto) 21, Monocytes (%) (Auto) 8, Eosinophils (%) (Auto) 0, Basophils (%) (Auto) 0, Neutrophils # (Auto) 3.7, Lymphocytes # (Auto) 1.1, Monocytes # (Auto) 0.4, Eosinophils # (Auto) 0.0, Basophils # (Auto) 0.0, Sodium Level 139, Potassium Level 4.0, Chloride Level 108H, Carbon Dioxide Level 17L, Anion Gap 14, Blood Urea Nitrogen < 2L, Creatinine 0.62, Estimat Glomerular Filtration Rate > 60, BUN/Creatinine Ratio 3, Glucose Level 85, Calcium Level 8.4L, Corrected Calcium 9.0, Total Bilirubin 0.3, Aspartate Amino Transf (AST/SGOT) 39H, Alanine Aminotransferase (ALT/SGPT) 47, Alkaline Phosphatase 84, Total Protein 5.8L, Albumin 3.2 Microbiology 01/23/19 Blood Culture - Preliminary, Resulted No growth 01/23/19 Urine Culture - Final, Complete 3 or more isolates Assessment/Plan Assessment/Plan Assessment/Plan colitis ascending colon, partial sbo, diffuse abdominal pain repeat ct showing mural thickening of small and large bowel added flagyl bowel rest IV fluids encouraged to increase activity . Clinical Quality Measures DVT/VTE Risk/Contraindication: Risk Factor Score Per Nursin RFS Level Per Nursing on Admit: 2=Moderate PENNY ALMAZAN DO Jan 27, 2019 16:54
[2019-01-27] MEDS ORDERED: NS (IVPB) 100 ML ONE (23:22)
[2019-01-27] MEDS ORDERED: PIPERACILLIN/TAZO 4.5 GM VIAL (ZOSYN) IV ONE (23:22)
[2019-01-28 00:40] VITALS: BP 182/85
[2019-01-28] MEDS: metroNIDAZOLE 500MG/100ML IVPB 100 ML IV SCH ×3 (03:23→17:58)
[2019-01-28] MEDS: ONDANSETRON 4 MG/2 ML (SDV) Z0FRAN IV PRN ×3 (04:53→16:10)
[2019-01-28 05:57] LABS: BASOPHILS % (AUTO) 0 % (0-10); EOSINOPHILS % (AUTO) 1 % (0-10); HEMATOCRIT 34 % (35-52); HEMOGLOBIN 10.7 G/DL (11.5-16.0); LYMPHOCYTES # (AUTO) 1.4 X 10^3 (1.0-4.0); LYMPHOCYTES % (AUTO) 26 % (12-44); MEAN CORPUSCULAR HEMOGLOBIN 29 PG (25-34); MEAN CORPUSCULAR HGB CONC 32 G/DL (32-36); MEAN CORPUSCULAR VOLUME 91 FL (80-99); MONOCYTES # (AUTO) 0.5 X 10^3 (0.0-1.0); MONOCYTES % (AUTO) 10 % (0-12); NEUTROPHILS # (AUTO) 3.5 X 10^3 (1.8-7.8); NEUTROPHILS % (AUTO) 64 % (42-75); PLATELET COUNT 324 10^3/uL (130-400); RED CELL DISTRIBUTION WIDTH 16.7 % (10.0-14.5); WHITE BLOOD COUNT 5.5 10^3/uL (4.3-11.0)
[2019-01-28 06:23] LABS: ALANINE AMINOTRANSFERASE 42 U/L (0-55); ALBUMIN 3.4 GM/DL (3.2-4.5); ALKALINE PHOSPHATASE 68 U/L (40-136); BILIRUBIN,TOTAL 0.3 MG/DL (0.1-1.0); BUN/CREATININE RATIO 3; CALCIUM 8.6 MG/DL (8.5-10.1); CARBON DIOXIDE 22 MMOL/L (21-32); CHLORIDE 106 MMOL/L (98-107); CREATININE SERUM 0.66 MG/DL (0.60-1.30); GFR ESTIMATED > 60; GLUCOSE 87 MG/DL (70-105); POTASSIUM 3.6 MMOL/L (3.6-5.0); SODIUM 140 MMOL/L (135-145); TOTAL PROTEIN 5.9 GM/DL (6.4-8.2)
[2019-01-28] MEDS: PIPERACILLIN/TAZO 4.5 GM/NS 100 ML IV SCH ×4 (06:26→13:56)
[2019-01-28] MEDS: PANTOPRAZOLE 40 MG (PROTONIX) VIAL IV SCH (07:46)
[2019-01-28] MEDS: HYDROcodone/APAP 5 MG/325 MG (LORTAB) TAB PO PRN ×3 (07:46→19:26)
[2019-01-28] MEDS: FAMOTIDINE 20MG/2ML IV (PEPCID) IV PRN (07:54)
[2019-01-28] MEDS: ENOXAPARIN 40 MG/0.4 ML (LOVENOX) SYR SC SCH (07:55)
[2019-01-28 08:00] VITALS: BP 180/95
--- NOTE | 2019-01-28 09:30 | NUR ---
DRANK APPLE JUICE. CORINNE. FAIR WITH NAUSEA.
--- NOTE | 2019-01-28 11:19 | Progress Note - Surgery ---
ANA,SAPNA,MED STUDENT 01/28/19 1119: Subjective Date Seen by a Provider: Jan 28, 2019 Time Seen by a Provider: 11:12 Subjective/Events-last exam Patient continues to complain of diffuse abdominal pain. She also reports an episode of vomiting this morning which she describes as a small amount of foamy fluid. Patient states that she is having regular bowel movements daily. She continues to rest in bed but states that she got up and walked yesterday. No other new complaints or concerns. Denies fever, chills, chest pain, or shortness of breath. No family at bedside. Objective Exam Vital Signs Date Time Temp Pulse Resp B/P (MAP) Pulse Ox O2 Delivery O2 Flow Rate FiO2 01/28/19 08:00 97.8 102 18 180/95 (123) 98 Room Air 01/28/19 08:00 Room Air 01/28/19 00:40 98.8 95 18 182/85 (117) 97 Room Air 01/27/19 20:00 Room Air 01/27/19 16:29 99.7 99 20 194/107 (136) 97 Room Air I & O 01/28/19 07:00 Intake Total 1440 ml Output Total 2900 ml Balance -1460 ml Capillary Refill : Less Than 3 SecondsLess Than 3 Seconds General Appearance: No Apparent Distress, WD/WN HEENT: PERRL/EOMI, Pharynx Normal Neck: Full Range of Motion, Normal Inspection, Non Tender, Supple Respiratory: Chest Non Tender, No Accessory Muscle Use, No Respiratory Distress Cardiovascular: Regular Rate, Rhythm, Normal Peripheral Pulses Peripheral Pulses: 2+ Radial Pulses (R), 2+ Radial Pulses (L) Gastrointestinal: non tender, soft; No distended, No guarding, No rebound Extremity: Normal Inspection, Normal Range of Motion, Non Tender Neurologic/Psychiatric: Alert, Oriented x3, No Motor/Sensory Deficits, Normal Mood/Affect Skin: Normal Color, Warm/Dry Lymphatic: No Adenopathy Results Lab Laboratory Tests 01/28/19 05:25: White Blood Count 5.5, Red Blood Count 3.72L, Hemoglobin 10.7L, Hematocrit 34L, Mean Corpuscular Volume 91, Mean Corpuscular Hemoglobin 29, Mean Corpuscular Hemoglobin Concent 32, Red Cell Distribution Width 16.7H, Platelet Count 324, Mean Platelet Volume 9.0, Neutrophils (%) (Auto) 64, Lymphocytes (%) (Auto) 26, Monocytes (%) (Auto) 10, Eosinophils (%) (Auto) 1, Basophils (%) (Auto) 0, Neutrophils # (Auto) 3.5, Lymphocytes # (Auto) 1.4, Monocytes # (Auto) 0.5, Eosinophils # (Auto) 0.0, Basophils # (Auto) 0.0, Sodium Level 140, Potassium Level 3.6, Chloride Level 106, Carbon Dioxide Level 22, Anion Gap 12, Blood Urea Nitrogen < 2L, Creatinine 0.66, Estimat Glomerular Filtration Rate > 60, BUN/Creatinine Ratio 3, Glucose Level 87, Calcium Level 8.6, Corrected Calcium 9.1, Total Bilirubin 0.3, Aspartate Amino Transf (AST/SGOT) 21, Alanine Aminotransferase (ALT/SGPT) 42, Alkaline Phosphatase 68, Total Protein 5.9L, Albumin 3.4 Microbiology 01/23/19 Blood Culture - Preliminary, Resulted No growth 01/23/19 Urine Culture - Final, Complete 3 or more isolates Assessment/Plan Assessment/Plan Assessment/Plan colitis ascending colon, partial sbo, diffuse abdominal pain repeat ct showed mural thickening of small and large bowel added flagyl yesterday Advance to clear liquid diet IV fluids discontinue narcotics encouraged to further increase activity Possibly home today or tomorrow Will plan on colonoscopy outpatient in approximately 8 weeks . Clinical Quality Measures DVT/VTE Risk/Contraindication: Risk Factor Score Per Nursin RFS Level Per Nursing on Admit: 2=Moderate PENNY GRAMAJO DO 01/29/19 0751: Subjective Subjective/Events-last exam still with episodic diffuse abdominal pain. having some episodes of foamy emesis. not having any fever sweats chills shortness of breath or chest pain. Objective Exam General Appearance: No Apparent Distress HEENT: Pharynx Normal Neck: Full Range of Motion, Normal Inspection, Non Tender Respiratory: Chest Non Tender, No Accessory Muscle Use, No Respiratory Distress Cardiovascular: Regular Rate, Rhythm, Normal Peripheral Pulses Gastrointestinal: non tender, soft Extremity: Normal Inspection, Normal Range of Motion, Non Tender Neurologic/Psychiatric: Alert, Oriented x3 Skin: Normal Color, Warm/Dry Lymphatic: No Adenopathy Assessment/Plan Assessment/Plan Assessment/Plan colitis/enteritis, partial sbo resolved, diffuse abd pain patient will try diet conitnue iv fluids if tolerates fluids could dc home encouraged ambulation continue abx Supervisory-Addendum Brief Verification & Attestation Participated in pt care: history, MDM, physical Personally performed: exam, history, MDM, supervision of care Care discussed with: Medical Student Procedures: n/a Results interpretation: Verified all documentation Verification and Attestation of Medical Student E/M Service A medical student performed and documented this service in my presence. I reviewed and verified all information documented by the medical student and made modifications to such information, when appropriate. I personally performed the physical exam and medical decision making. Penny Gramajo, Jan 28, 2019,17:50 SAPNA PEREZ,MED STUDENT Jan 28, 2019 11:19 PENNY GRAMAJO DO Jan 29, 2019 07:51
--- NOTE | 2019-01-28 12:30 | NUR ---
ATE 1 BITE OF POP CYCLE AND FEW BITES OF JELLO CORINNE. POORLY WITH 300 CC FOAMY WHITISH FOUL SMELLING EMESIS. DR. ALMAZAN NOTIFIED OF PT. FEELING SO NAUSEATED AND CORINNE. CL DIET POORLY.
--- NOTE | 2019-01-28 12:59 | Progress Note - Hospitalist ---
[facility] 01/28/19 1259: Subjective HPI/CC On Admission Date Seen by Provider: Jan 28, 2019 Time Seen by Provider: 07:30 The patient is a 43-year-old white female who reported that she been feeling well up until when she noted some burning left sided abdominal pain. This progressed to nausea with vomiting of reported feculent foul-smelling emesis. She denied blood. It been several days since her last bowel movement up until this morning post admission when she noted stool that was not hard nor was there evidence for blood. She noted associated abdominal distention but this was improved this morning compared to last night as well. She denied chills or fever and had had no previous diarrhea. She's had multiple abdominal surgeries in the past but nothing this year. This includes hysterectomy appendectomy and cholecystectomy. There is no history of malignancy reported. She had a similar admission 3 years ago she had panendoscopy at that time that revealed some polyps that were reportedly benign and did not require surgery. Subjective/Events-last exam Patient was alert and oriented and sitting at the end of the bed trying to vomit. Pt seemed to have a little more energy when answering questions then previous days. Patient stated she had three bowel movements yesterday and they were watery. Denied blood in stool Patient is urinating Current pain is 8/10 Patient has been ambulating ROS: Patient denied SOB, chest pain, and states she still has abdominal pain and is feeling like she needs to vomit. Heart: HRRR Lungs: LCTAB Abdominal: tender, and decreased bowel sounds (patient has been NPO) Vitals: BP is still running high 180/95, but patient is stable and remainder of vitals are within normal limits. Labs: Stable General surgery is still monitoring and will possibly discharge today if patient continues to make progress. Focused Exam Respiratory: Chest Non Tender, Lungs Clear, Normal Breath Sounds, No Accessory Muscle Use, No Respiratory Distress Cardiovascular: Regular Rate, Rhythm, No Edema, No JVD Peripheral Pulses: 2+ Radial Pulses (R), 2+ Radial Pulses (L) Skin: normal color, warm/dry Objective Exam Vital Signs Vital Signs Date Time Temp Pulse Resp B/P (MAP) Pulse Ox O2 Delivery O2 Flow Rate FiO2 01/28/19 08:00 97.8 102 18 180/95 (123) 98 Room Air 01/24/19 08:00 Capillary Refill : Less Than 3 SecondsLess Than 3 Seconds General Appearance: WD/WN, Mild Distress Neck: Full Range of Motion Respiratory: Chest Non Tender, Lungs Clear, Normal Breath Sounds, No Accessory Muscle Use, No Respiratory Distress Cardiovascular: Regular Rate, Rhythm, No Edema, No JVD Gastrointestinal: Tenderness Neurologic/Psychiatric: Alert, Oriented x3 Results/Procedures Lab Laboratory Tests 01/28/19 05:25 Patient resulted labs reviewed. Assessment/Plan Assessment and Plan Assess & Plan/Chief Complaint Assessment: 1. Colitis 2. Seizures Plan: 1. Continue GI service and monitor follow up. 2. Continue to monitor labs and vitals 3. Contact if BP continues to increase and systolic>180 and or diastolic>100 4. Have patient work with PT 5. Start DVT prophylaxis 6. Finish current ABX regimen 7. Pt is still NPO 8. Continue to monitor for seizure activity 9 Monitor GI consultation for possible discharge. Clinical Quality Measures DVT/VTE Risk/Contraindication: Risk Factor Score Per Nursin RFS Level Per Nursing on Admit: 2=Moderate HYUN SALVADOR DO 01/28/192035: Subjective Subjective/Events-last exam Pt doing much better Up walking around and looks very much improved Elevated BP at times but that is possibly a self limited issue but she will be having a close follow up with [facility] Able to tolerate liquids and will advance very slowly Colton Houser will see her in close follow up next week After rounds she was unable to tolerate diet so DC was held once again Will initiate IV/topical meds for HTN OOC Review of Systems General: Fatigue Gastrointestinal: Nausea, Vomiting, Abdominal Pain Objective Exam General Appearance: No Apparent Distress, WD/WN, Chronically ill Respiratory: Chest Non Tender, Lungs Clear, Normal Breath Sounds, No Accessory Muscle Use, No Respiratory Distress Cardiovascular: Regular Rate, Rhythm, No Edema, No Gallop, No JVD, No Murmur, Normal Peripheral Pulses Neurologic/Psychiatric: Alert, Oriented x3, No Motor/Sensory Deficits, Normal Mood/Affect Skin: Normal Color, Warm/Dry Assessment/Plan Assessment and Plan Assess & Plan/Chief Complaint Recurrent N/V with colitis and abdominal pain HTN OOC Plan: Enalapril IV NTG ointment Hydralazine Diagnosis/Problems Diagnosis/Problems (1) Hypertension Status: Acute Qualifiers: Qualified Codes: I10 - Essential (primary) hypertension (2) Bowel obstruction Status: Acute Qualifiers: (3) Colitis Status: Acute (4) Hypokalemia Status: Acute (5) Intractable vomiting Status: Acute (6) Pseudoseizures Status: Acute (7) Dehydration Status: Acute (8) Leukocytosis Status: Acute Supervisory-Addendum Brief Verification & Attestation Participated in pt care: history, MDM, physical Personally performed: exam, history, MDM, supervision of care Care discussed with: Medical Student Procedures: n/a Results interpretation: Verified all documentation Verification and Attestation of Medical Student E/M Service A medical student performed and documented this service in my presence. I reviewed and verified all information documented by the medical student and made modifications to such information, when appropriate. I personally performed the physical exam and medical decision making. Hyun Salvador, Jan 28, 2019,20:36 [facility] Jan 28, 2019 12:59 HYUN SALVADOR DO Jan 28, 2019 20:36
[2019-01-28] MEDS: NS W/KCL 20 MEQ/L 1,000 ML IV SCH ×3 (13:55→19:21)
[2019-01-28] MEDS ORDERED: ONDANSETRON 4 MG/2 ML (SDV) Z0FRAN IVP NR (14:15)
[2019-01-28 16:07] VITALS: BP 171/103
[2019-01-28] MEDS ORDERED: DICYCLOMINE 10 MG (BENTYL) CAP PO NR (17:38)
[2019-01-28] MEDS ORDERED: amLODIPine 5 MG (NORVASC) TAB PO ONE (20:45)
[2019-01-28] MEDS ORDERED: cloNIDine 0.1 MG (CATAPRES) TAB PO PRN (20:45)
[2019-01-28] MEDS ORDERED: hydrALAZINE (APESOLINE) 20 MG/ML VIAL IV PRN (20:45)
[2019-01-28] MEDS ORDERED: NITROGLYCERIN 2% OINT 1 GM UNIT DOSE PACKET TOP PRN (20:45)
[2019-01-29 00:30] VITALS: BP 169/97
[2019-01-29] MEDS: ENALAPRILAT 2.5 MG/2 ML (VASOTEC) VIAL IV SCH ×4 (00:44→12:40)
[2019-01-29] MEDS: NS W/KCL 20 MEQ/L 1,000 ML IV SCH (01:02)
[2019-01-29] MEDS: ONDANSETRON 4 MG/2 ML (SDV) Z0FRAN IV PRN ×2 (01:27→10:34)
[2019-01-29] MEDS: HYDROcodone/APAP 5 MG/325 MG (LORTAB) TAB PO PRN (01:53)
[2019-01-29] MEDS: metroNIDAZOLE 500MG/100ML IVPB 100 ML IV SCH ×2 (01:53→11:24)
[2019-01-29 05:26] LABS: BASOPHILS % (AUTO) 0 % (0-10); EOSINOPHILS % (AUTO) 1 % (0-10); HEMATOCRIT 32 % (35-52); HEMOGLOBIN 10.4 G/DL (11.5-16.0); LYMPHOCYTES # (AUTO) 1.4 X 10^3 (1.0-4.0); LYMPHOCYTES % (AUTO) 30 % (12-44); MEAN CORPUSCULAR HEMOGLOBIN 29 PG (25-34); MEAN CORPUSCULAR HGB CONC 32 G/DL (32-36); MEAN CORPUSCULAR VOLUME 90 FL (80-99); MONOCYTES # (AUTO) 0.5 X 10^3 (0.0-1.0); MONOCYTES % (AUTO) 10 % (0-12); NEUTROPHILS # (AUTO) 2.7 X 10^3 (1.8-7.8); NEUTROPHILS % (AUTO) 59 % (42-75); PLATELET COUNT 346 10^3/uL (130-400); RED CELL DISTRIBUTION WIDTH 17.1 % (10.0-14.5); WHITE BLOOD COUNT 4.6 10^3/uL (4.3-11.0)
[2019-01-29 05:43] LABS: ALANINE AMINOTRANSFERASE 29 U/L (0-55); ALBUMIN 3.3 GM/DL (3.2-4.5); ALKALINE PHOSPHATASE 64 U/L (40-136); BILIRUBIN,TOTAL 0.2 MG/DL (0.1-1.0); BUN/CREATININE RATIO 3; CALCIUM 8.5 MG/DL (8.5-10.1); CARBON DIOXIDE 21 MMOL/L (21-32); CHLORIDE 104 MMOL/L (98-107); CREATININE SERUM 0.63 MG/DL (0.60-1.30); GFR ESTIMATED > 60; GLUCOSE 81 MG/DL (70-105); POTASSIUM 3.5 MMOL/L (3.6-5.0); SODIUM 139 MMOL/L (135-145); TOTAL PROTEIN 5.7 GM/DL (6.4-8.2)
[2019-01-29 08:00] VITALS: BP 181/84
[2019-01-29] MEDS: PANTOPRAZOLE 40 MG (PROTONIX) VIAL IV SCH (08:56)
--- NOTE | 2019-01-29 08:59 | Progress Note - Surgery ---
SAPNA PEREZ,MED STUDENT 01/29/19 0859: Subjective Date Seen by a Provider: Jan 29, 2019 Time Seen by a Provider: 07:35 Subjective/Events-last exam Patient reports that her abdominal pain has improved today. She is having regular bowel movements. She had an episode of emesis yesterday after advancing to clear liquid diet and was subsequently made NPO. She denies further nausea or emesis since. She states that she would like to go home today. Denies chest pain, shortness of breath, fever, or chills. No family at bedside. Objective Exam Vital Signs Date Time Temp Pulse Resp B/P (MAP) Pulse Ox O2 Delivery O2 Flow Rate FiO2 01/29/19 08:00 Room Air 01/29/19 08:00 97.8 97 16 181/84 (116) 92 Room Air 01/29/19 00:30 97.9 88 18 169/97 (121) 96 Room Air 01/28/19 19:15 Room Air 01/28/19 16:07 98.6 94 18 171/103 (125) 97 Room Air I & O 01/29/19 07:00 Intake Total 2900 ml Output Total 3750 ml Balance -850 ml Capillary Refill : Less Than 3 SecondsLess Than 3 Seconds General Appearance: No Apparent Distress, WD/WN HEENT: PERRL/EOMI, Pharynx Normal Neck: Full Range of Motion, Normal Inspection, Non Tender Respiratory: Chest Non Tender, No Accessory Muscle Use, No Respiratory Distress Cardiovascular: Regular Rate, Rhythm, Normal Peripheral Pulses Peripheral Pulses: 2+ Radial Pulses (R), 2+ Radial Pulses (L) Gastrointestinal: soft; No distended; tenderness (mild left sided abdominal tenderness) Extremity: Normal Inspection, Normal Range of Motion, Non Tender Neurologic/Psychiatric: Alert, Oriented x3, No Motor/Sensory Deficits, Normal 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, 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 Norm as Tested Skin: Normal Color, Warm/Dry Lymphatic: No Adenopathy Results Lab Laboratory Tests 01/29/19 04:56: White Blood Count 4.6, Red Blood Count 3.59L, Hemoglobin 10.4L, Hematocrit 32L, Mean Corpuscular Volume 90, Mean Corpuscular Hemoglobin 29, Mean Corpuscular Hemoglobin Concent 32, Red Cell Distribution Width 17.1H, Platelet Count 346, Mean Platelet Volume 9.0, Neutrophils (%) (Auto) 59, Lymphocytes (%) (Auto) 30, Monocytes (%) (Auto) 10, Eosinophils (%) (Auto) 1, Basophils (%) (Auto) 0, Neutrophils # (Auto) 2.7, Lymphocytes # (Auto) 1.4, Monocytes # (Auto) 0.5, Eosinophils # (Auto) 0.0, Basophils # (Auto) 0.0, Sodium Level 139, Potassium Level 3.5L, Chloride Level 104, Carbon Dioxide Level 21, Anion Gap 14, Blood Urea Nitrogen < 2L, Creatinine 0.63, Estimat Glomerular Filtration Rate > 60, BUN/Creatinine Ratio 3, Glucose Level 81, Calcium Level 8.5, Corrected Calcium 9.1, Total Bilirubin 0.2, Aspartate Amino Transf (AST/SGOT) 16, Alanine Aminotransferase (ALT/SGPT) 29, Alkaline Phosphatase 64, Total Protein 5.7L, Albumin 3.3 Microbiology 01/23/19 Blood Culture - Preliminary, Resulted No growth 01/23/19 Urine Culture - Final, Complete 3 or more isolates Assessment/Plan Assessment/Plan Assessment/Plan colitis/enteritis, partial sbo resolved, diffuse abd pain continue IV fluids if tolerates clear liquids could dc home encouraged ambulation continue abx Clinical Quality Measures DVT/VTE Risk/Contraindication: Risk Factor Score Per Nursin RFS Level Per Nursing on Admit: 2=Moderate PENNY GRAMAJO DO 01/29/19 1300: Subjective Subjective/Events-last exam abdominal pain improved. was npo and started on clears. Not having nausea or emesis today. having bowel function denies fever swats chills shortness of breath or chest pain. wanting to go home. Objective Exam General Appearance: No Apparent Distress, WD/WN HEENT: PERRL/EOMI Neck: Full Range of Motion, Normal Inspection, Non Tender Respiratory: Chest Non Tender, No Accessory Muscle Use, No Respiratory Distress Cardiovascular: Regular Rate, Rhythm, Normal Peripheral Pulses Gastrointestinal: non tender, soft; No distended; tenderness (no significant tenderness) Neurologic/Psychiatric: Alert, Oriented x3, No Motor/Sensory Deficits, Normal Mood/Affect Skin: Normal Color, Warm/Dry Lymphatic: No Adenopathy Assessment/Plan Assessment/Plan Assessment/Plan colitis/enteritis, psbo resolved diffuse abd pain improved indeterminate c diff culture was started on clears and now feeling better okay to dc home will continue abx outpatient close follow up likely endoscopy outpatient Supervisory-Addendum Brief Verification & Attestation Participated in pt care: history, MDM, physical Personally performed: exam, history, MDM, supervision of care Care discussed with: Medical Student Procedures: n/a Results interpretation: Verified all documentation Verification and Attestation of Medical Student E/M Service A medical student performed and documented this service in my presence. I reviewed and verified all information documented by the medical student and made modifications to such information, when appropriate. I personally performed the physical exam and medical decision making. Penny Gramajo, Jan 29, 2019,13:00 SAPNA PEREZ,MED STUDENT Jan 29, 2019 08:59 PENNY GRAMAJO DO Jan 29, 2019 13:00
[2019-01-29] MEDS ORDERED: amLODIPine 5 MG (NORVASC) TAB PO SCH (09:00)
[2019-01-29] MEDS: ENOXAPARIN 40 MG/0.4 ML (LOVENOX) SYR SC SCH (09:15)
--- NOTE | 2019-01-29 09:15 | NUR ---
DR ALMAZAN WAS ON FLOOR AND GOT ORDER FOR CLR LIQ DIST -- DR ALMAZAN VOICED TO PT IF SHE KEEPS THE CLR LIQ'S HE WILL PROBABLY DISCHARGE HER LATER TODAY --
[2019-01-29] MEDS ORDERED: AMLO5TAB9 PO (09:58)
--- NOTE | 2019-01-29 10:51 | NUR ---
at 0846 -- LAB CALLED AND ADVISED THIS RN THAT C DIFF COULD NOT BE RULED OUT AND THAT STOOL SAMPLE WAS SENT OUT FOR FURTHER STUDY -- THIS RN CALLED AND MESSAGE FOR DR ALMAZAN -- AT [address] ALMAZAN THAT PT WAS C/O NAUSEA AND REQUESTED IV ZOFRAN PRN BEFORE SHE VOMITED -- SHE HAD TAKEN A FEW BITES OF CLR LIQ BKFT -- NO NEW ORDERS
[2019-01-29] MEDS ORDERED: DICYCLOMINE 10 MG (BENTYL) CAP PO SCH (11:00)
--- NOTE | 2019-01-29 11:12 | Progress Note - Hospitalist ---
[facility] 01/29/19 1112: Subjective HPI/CC On Admission Date Seen by Provider: Jan 29, 2019 Time Seen by Provider: 07:15 The patient is a 43-year-old white female who reported that she been feeling well up until when she noted some burning left sided abdominal pain. This progressed to nausea with vomiting of reported feculent foul-smelling emesis. She denied blood. It been several days since her last bowel movement up until this morning post admission when she noted stool that was not hard nor was there evidence for blood. She noted associated abdominal distention but this was improved this morning compared to last night as well. She denied chills or fever and had had no previous diarrhea. She's had multiple abdominal surgeries in the past but nothing this year. This includes hysterectomy appendectomy and cholecystectomy. There is no history of malignancy reported. She had a similar admission 3 years ago she had panendoscopy at that time that revealed some polyps that were reportedly benign and did not require surgery. Subjective/Events-last exam Patient was alert and oriented and in no acute distress The patient has no pain and stated that she feels better and would like to go home. She has been ambulating and is doing better She is currently NPO Patient has been urinating fine ROS: the patient denies chest pain, SOB, N/V, F/C and abdominal pain Heart: HRRR Lungs: LCTAB Abdomen: Bowel sound present and abdominal palpation did not elicit pain Vitals: Blood pressure is still elevated and is being manage accordingly, remainder of the vitals are stable Labs: Stable Plan: Patient must continue to ambulate, continue to monitor GI consultation for possible D/C. Focused Exam Respiratory: Chest Non Tender, Lungs Clear, Normal Breath Sounds, No Accessory Muscle Use, No Respiratory Distress Cardiovascular: Regular Rate, Rhythm, No Edema, No JVD Peripheral Pulses: 2+ Radial Pulses (R), 2+ Radial Pulses (L) Skin: normal color, warm/dry Objective Exam Vital Signs Vital Signs Date Time Temp Pulse Resp B/P (MAP) Pulse Ox O2 Delivery O2 Flow Rate FiO2 01/29/19 08:00 Room Air 01/29/19 08:00 97.8 97 16 181/84 (116) 92 01/24/19 08:00 Capillary Refill : Less Than 3 SecondsLess Than 3 Seconds General Appearance: No Apparent Distress, WD/WN Neck: Full Range of Motion Respiratory: Chest Non Tender, Lungs Clear, Normal Breath Sounds, No Accessory Muscle Use, No Respiratory Distress Cardiovascular: Regular Rate, Rhythm, No Edema, No JVD Gastrointestinal: Non Tender, Other (Bowel sounds present and no pain elcited on abdominal palpation ) Extremity: Normal Capillary Refill Neurologic/Psychiatric: Alert, Oriented x3 Results/Procedures Lab Laboratory Tests 01/29/19 04:56 Patient resulted labs reviewed. Assessment/Plan Assessment and Plan Assess & Plan/Chief Complaint Assessment: 1. Colitis 2. Seizures Plan: 1. Continue GI service and monitor follow up. 2. Continue to monitor labs and vitals 3. Contact if BP continues to increase and systolic>180 and or diastolic>100 4. Have patient work with PT 5. DVT prophylaxis 6. Finish current ABX regimen 7. Pt is still NPO, possibly advance diet to see if patient can tolerate it 8. Continue to monitor for seizure activity 9 Monitor GI consultation for possible discharge. Clinical Quality Measures DVT/VTE Risk/Contraindication: Risk Factor Score Per Nursin RFS Level Per Nursing on Admit: 2=Moderate HYUN RUIZ DO 01/29/19 2218: Subjective Subjective/Events-last exam She is doing very well now. Pt wants to go home. BP has been very high and I did initiate meds and she has noted an increase in her BP when she saw Colton Houser recently. Will send in [facility]. Conferred with Dr. Gramajo. Tolerating fluids and a little bit of nutrition now. Walking the halls currently. Supervisory-Addendum Brief Verification & Attestation Participated in pt care: history, MDM, physical Personally performed: exam, history, MDM, supervision of care Care discussed with: Medical Student Procedures: n/a Results interpretation: Verified all documentation Verification and Attestation of Medical Student E/M Service A medical student performed and documented this service in my presence. I reviewed and verified all information documented by the medical student and made modifications to such information, when appropriate. I personally performed the physical exam and medical decision making. Hyun Ruiz, Jan 29, 2019,22:17 [facility] Jan 29, 2019 11:12 HYUN RUIZ DO Jan 29, 2019 22:18
[2019-01-29] MEDS ORDERED: ONDN4T PO (12:53)
[2019-01-29] MEDS ORDERED: METR500T PO (12:53)
[2019-01-29 13:30] VITALS: BP 181/84
== END 2019-01-29 13:30 | disposition home or self-care (01) | DRG 392 ==
LOC: EDUNIT# 17:21 → ER 17:23 → 4TH 22:30
PROVIDERS: ADMIT Surgery; ATTEND Surgery
DX: K52.9 Noninfective gastroenteritis and colitis, unspecified (principal); K56.690 Other partial intestinal obstruction; K59.00 Constipation, unspecified; G40.909 Epilepsy, unspecified, not intractable, without status epilepticus; J45.909 Unspecified asthma, uncomplicated; G43.909 Migraine, unspecified, not intractable, without status migrainosus; I10 Essential (primary) hypertension; M54.9 Dorsalgia, unspecified; F41.9 Anxiety disorder, unspecified; F32.9 Major depressive disorder, single episode, unspecified; E87.6 Hypokalemia; Z87.891 Personal history of nicotine dependence
CPT/HCPCS: 36415; 74019; 74177; 74250; 80048; 80053; 81000; 83605; 83690; 85025; 85027; 86141; 87015; 87040; 87045; 87046; 87088; 87324; 87328; 87449; 87493; 87899; 94664; 96361; 96374; 96375; 96376

== ENCOUNTER 2019-03-02 19:40 | Day surgery (SDC) | payer SELFPAY ==
[~2019-03-02] VITALS: Ht 165 cm; Wt 78.0 kg
[~2019-03-02 19:40] MED LIST changes: +AMIT10TA6 PO; +AMLO2.5T4 PO; +AMOX-358 PO; +METR500T PO; +PROP80TA3 PO; +TIZA4TAB4 PO
[2019-03-02] MEDS ORDERED: LACTATED RINGERS 1,000 ML IV ONE (20:13)
[2019-03-02] MEDS ORDERED: ONDANSETRON 4 MG/2 ML (SDV) Z0FRAN IVP ONE ×2 (20:15→22:30)
[2019-03-02] MEDS ORDERED: fentaNYL INJECTION 100 MCG/2 ML AMP IVP ONE ×2 (20:15→22:30)
[2019-03-02 20:19] LABS: BASOPHILS % (AUTO) 0 % (0-10); EOSINOPHILS % (AUTO) 0 % (0-10); HEMATOCRIT 43 % (35-52); HEMOGLOBIN 14.6 G/DL (11.5-16.0); LYMPHOCYTES % (AUTO) 35 % (12-44); MEAN CORPUSCULAR HEMOGLOBIN 29 PG (25-34); MEAN CORPUSCULAR HGB CONC 34 G/DL (32-36); MEAN CORPUSCULAR VOLUME 86 FL (80-99); MEAN PLATELET VOLUME 10.3 FL (7.4-10.4); MONOCYTES # (AUTO) 0.6 X 10^3 (0.0-1.0); MONOCYTES % (AUTO) 10 % (0-12); NEUTROPHILS # (AUTO) 3.1 X 10^3 (1.8-7.8); NEUTROPHILS % (AUTO) 55 % (42-75); PLATELET COUNT 312 10^3/uL (130-400); RED CELL DISTRIBUTION WIDTH 14.9 % (10.0-14.5); WHITE BLOOD COUNT 5.7 10^3/uL (4.3-11.0)
--- NOTE | 2019-03-02 20:20 | ED GI ---
General Chief Complaint: Abdominal/GI Problems Stated Complaint: VOMMITTING Nursing Triage Note: PT ambulates to Rm 10 with C/O abd pain, N/V, fever/chills x 8 days. Pt states was Dx with C.Diff aprox a month ago. Sepsis Screen: Possible Severe Sepsis Risk Source of Information: Patient, Family Exam Limitations: No Limitations History of Present Illness Date Seen by Provider: Mar 02, 2019 Time Seen by Provider: 19:58 Initial Comments Patient presents to ER by private conveyance with family and chief complaint of intractable nausea vomiting for the past 8 days. 5 days ago she went to see Colton Houser, primary care and he recommended if she could not get it stopped with Zofran to return to the ER. She is using 4 mg Zofran every 4 hours with no relief for any length of time. Prior to this she had an episode of C. difficile colitis and completed her antibiotics 1 week ago. She's not having any diarrhea. Normal stools. She's had C-sections, hysterectomy, bladder sling and subsequent swelling removal surgeries. She still has gallbladder and appendix. Allergies and Home Medications Allergies Coded Allergies: morphine (Verified Allergy, Unknown, CAUSES "REBOUND HEADACHES", 08/20/13) baclofen (Verified Adverse Reaction, Severe, 06/13/15) PATIENT UNAWARE OF REACTION BUT WAS HOSPITALIZED AFTER TAKING MEDICATION AND WAS TOLD IT WAS A REACTION DUE TO THE MEDICATION SHE TOOK. meloxicam (Verified Adverse Reaction, Severe, 06/13/15) PATIENT UNAWARE OF REACTION BUT WAS HOSPITALIZED AFTER TAKING MEDICATION AND WAS TOLD IT WAS A REACTION DUE TO THE MEDICATION SHE TOOK. NSAIDS (Non-Steroidal Anti-Inflamma (Verified Adverse Reaction, Mild, have IBS and avoid NSAIDS, 12/04/12) Home Medications Amitriptyline HCl 10 Mg Tablet, 10 MG PO HS, (Reported) Amlodipine Besylate 5 Mg Tablet, 5 MG PO DAILY Prescribed by: JOSE RUIZ on 01/29/19 0958 Amoxicillin/Potassium Clav 1 Each Tablet, 1 EACH PO BID Prescribed by: PENNY ALMAZAN on 01/25/19 1046 Dicyclomine HCl 20 Mg Tablet, 20 MG PO QID, (Reported) Metronidazole 500 Mg Tablet, 500 MG PO TID Prescribed by: PENNY ALMAZAN on 01/29/19 1253 Ondansetron HCl 4 Mg Tab, 4 MG PO Q6H Prescribed by: PENNY ALMAZAN on 01/29/19 1253 Propranolol HCl 80 Mg Tablet, 80 MG PO BID, (Reported) LAST FILLED #60 08-08-18 Tizanidine HCl 4 Mg Tablet, 4 MG PO BID PRN for MUSCLE SPASMS, (Reported) Patient Home Medication List Home Medication List Reviewed: Yes Review of Systems Review of Systems Constitutional: No chills, No diaphoresis EENTM: No Blurred Vision, No Double Vision Respiratory: Denies Cough, Denies Shortness of Air Cardiovascular: Denies Chest Pain, Denies Edema Gastrointestinal: Abdominal Pain (all over); Denies Constipated, Denies Diarrhea; Nausea, Poor Fluid Intake, Vomiting Genitourinary: Denies Burning, Denies Discharge Musculoskeletal: No back pain, No joint pain Skin: No pruritus, No rash Psychiatric/Neurological: Denies Headache, Denies Numbness, Denies Paresthesia Past Eovtypi-Wewliu-Taloap Hx Patient Social History Alcohol Use: Denies Use Recreational Drug Use: No (former hx) Drug of Choice: Marijuana Smoking Status: Never a Smoker 2nd Hand Smoke Exposure: No Recent Foreign Travel: No Contact w/Someone Who Travel: No Recent Infectious Disease Expo: No Recent Hopitalizations: No Physical Abuse: No Sexual Abuse: No Mistreated: No Fear: No Immunizations Up To Date Tetanus Booster (TDap): More than 5yrs PED Vaccines UTD: No Date of Pneumonia Vaccine: Mar 03, 2014 Date of Influenza Vaccine: Mar 03, 2015 Seasonal Allergies Seasonal Allergies: No Past Medical History Surgeries: Yes Bladder Surgery, Gallbladder, 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, Oophorectomy, Tubal Ligation Respiratory: Yes Asthma Currently Using CPAP: No Currently Using BIPAP: No Cardiac: No Neurological: Yes ("SEIZURE WITH LOW BP" PER PT) Headaches /Migraines, Seizure Disorder 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 Disorders: Yes (HYST 2005--NO PHYSICIAN DOCUMENTATION OF ANY KIND OF CANCER) 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 Disorders: Denies 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 Sexually Transmitted Disease: Yes (HPV) HIV/AIDS: No Genitourinary: Yes Bladder Infection Gastrointestinal: Yes Irritable Bowel Musculoskeletal: Yes Chronic Back Pain Endocrine: No HEENT: Yes (POOR DENTITION) Loss of Vision: Denies Cancer: No (NO PHYSICIAN DOCUMENTATION / VERIFICATION OF ANY KIND OF CANCER) Cervical, Colon Psychosocial: Yes Anxiety, Depression Integumentary: No Blood Disorders: No Adverse Reaction/Blood Tranf: No Family Medical History Diabetes mellitus 19 FATHER FHx: brain tumor 19 MOTHER HPV infection G8 SISTER No Family History of: AIDS Abdominal aortic aneurysm Ziebach's disease Alcoholism Alzheimer's disease Aphasia Arthritis Asthma Cancer of mouth Cardiovascular disease Cataracts Colon cancer Completed stroke Congenital disease Congenital heart disease Coronary thrombosis Cystic fibrosis Deafness or hearing loss Dementia Drug abuse Dysphasia Fibrocystic disease of breast Gastroenteritis Glaucoma Headache disorder Hypercholesterolemia Hypertension Infertility Kidney disease Myocardial infarction Neoplasm Not obtainable due to adoption Osteoporosis Parkinson's disease Prostate cancer Psychosocial problem Respiratory disorder Seizure disorder Severe allergy Thyroid disease Tuberculosis Visual disorder Heart Disease, Hypertension Physical Exam Vital Signs Vital Signs - First Documented 03/02/19 19:47 Temp 37.9 Pulse 115 Resp 20 B/P (MAP) 180/125 (143) Pulse Ox 99 O2 Delivery Room Air Capillary Refill : Less Than 3 Seconds Height/Weight/BMI Height: 5'6.00" Weight: 203lbs. 6.4oz. [id number]; 27.00 BMI Method:Stated General Appearance: WD/WN, mild distress HEENT: PERRL/EOMI, pharynx normal (mildly dry oral mucosa) Respiratory: no respiratory distress, no accessory muscle use Cardiovascular: normal peripheral pulses, regular rate, rhythm, tachycardia (108) Peripheral Pulses: 2+ Dorsalis Pedis (R), 2+ Left Dors-Pedis (L) Gastrointestinal: normal bowel sounds (active), soft; No rebound Extremities: normal inspection, normal capillary refill Neurologic/Psychiatric: alert, normal mood/affect, oriented x 3 Skin: normal color, warm/dry Progress/Results/Core Measures Results/Orders Lab Results Laboratory Tests Test 03/02/19 19:55 Range/Units White Blood Count 5.7 4.3-11.0 10^3/uL Red Blood Count 5.03 4.35-5.85 10^6/uL Hemoglobin 14.6 11.5-16.0 G/DL Hematocrit 43 35-52 % Mean Corpuscular Volume 86 80-99 FL Mean Corpuscular Hemoglobin 29 25-34 PG Mean Corpuscular Hemoglobin Concent 34 32-36 G/DL Red Cell Distribution Width 14.9 H 10.0-14.5 % Platelet Count 312 130-400 10^3/uL Mean Platelet Volume 10.3 7.4-10.4 FL Neutrophils (%) (Auto) 55 42-75 % Lymphocytes (%) (Auto) 35 12-44 % Monocytes (%) (Auto) 10 0-12 % Eosinophils (%) (Auto) 0 0-10 % Basophils (%) (Auto) 0 0-10 % Neutrophils # (Auto) 3.1 1.8-7.8 X 10^3 Lymphocytes # (Auto) 2.0 1.0-4.0 X 10^3 Monocytes # (Auto) 0.6 0.0-1.0 X 10^3 Eosinophils # (Auto) 0.0 0.0-0.3 10^3/uL Basophils # (Auto) 0.0 0.0-0.1 10^3/uL Sodium Level 139 135-145 MMOL/L Potassium Level 2.3 *L 3.6-5.0 MMOL/L Chloride Level 92 L 98-107 MMOL/L Carbon Dioxide Level 31 21-32 MMOL/L Anion Gap 16 H 5-14 MMOL/L Blood Urea Nitrogen 9 7-18 MG/DL Creatinine 0.91 0.60-1.30 MG/DL Estimat Glomerular Filtration Rate > 60 BUN/Creatinine Ratio 10 Glucose Level 112 H 70-105 MG/DL Calcium Level 10.2 H 8.5-10.1 MG/DL Corrected Calcium 9.8 8.5-10.1 MG/DL Total Bilirubin 0.6 0.1-1.0 MG/DL Aspartate Amino Transf (AST/SGOT) 97 H 5-34 U/L Alanine Aminotransferase (ALT/SGPT) 67 H 0-55 U/L Alkaline Phosphatase 92 40-136 U/L C-Reactive Protein High Sensitivity 0.92 H 0.00-0.50 MG/DL Total Protein 7.8 6.4-8.2 GM/DL Albumin 4.5 3.2-4.5 GM/DL Lipase 109 H 8-78 U/L My Orders Orders - PAULA COLINDRES Ondansetron Injection (Zofran Injectio (03/02/19 20:15) Fentanyl Injection (Sublimaze Injection (03/02/19 20:15) Cbc With Automated Diff (03/02/19 20:13) Comprehensive Metabolic Panel (03/02/19 20:13) Hs C Reactive Protein (03/02/19 20:13) Lipase (03/02/19 20:13) Acute Abd Series (03/02/19 20:13) Ed Iv/Invasive Line Start (03/02/19 20:13) Lactated Ringers (Lr 1000 Ml Iv Solution (03/02/19 20:13) Potassium Cl 10meq/50ml Ivpb (Kcl 10 Meq (03/02/19 21:00) Ekg Tracing (03/02/19 20:56) Continuous Ekg Monitoring (03/02/19 20:56) Ns Iv 1000 Ml (Sodium Chloride 0.9%) (03/02/19 21:38) Fentanyl Injection (Sublimaze Injection (03/02/19 22:30) Ondansetron Injection (Zofran Injectio (03/02/19 22:30) Medications Given in ED Current Medications Medications Dose Ordered Sig/Judi Route Start Time Stop Time Status Last Admin Dose Admin Fentanyl Citrate 50 mcg ONCE ONCE IVP 03/02/19 20:15 03/02/19 20:16 DC 03/02/19 20:25 50 MCG Fentanyl Citrate 50 mcg ONCE ONCE IVP 03/02/19 22:30 03/02/19 22:31 DC 03/02/19 22:33 50 MCG Lactated Ringer's 1,000 ml @ 0 mls/hr Q0M ONCE IV 03/02/19 20:13 03/02/19 20:16 DC 03/02/19 20:24 0 MLS/HR Ondansetron HCl 8 mg ONCE ONCE IVP 03/02/19 20:15 03/02/19 20:16 DC 03/02/19 20:24 8 MG Ondansetron HCl 8 mg ONCE ONCE IVP 03/02/19 22:30 03/02/19 22:31 DC 03/02/19 22:33 8 MG Potassium Chloride 50 ml @ 50 mls/hr ONCE ONCE IV 03/02/19 21:00 03/02/19 21:59 DC 03/02/19 21:04 50 MLS/HR Promethazine HCl 25 mg ONCE ONCE IVP 03/02/19 21:30 03/02/19 22:03 DC 03/02/19 21:41 25 MG Vital Signs/I&O 03/02/19 19:47 Temp 37.9 Pulse 115 Resp 20 B/P (MAP) 180/125 (143) Pulse Ox 99 O2 Delivery Room Air Blood Pressure Mean: 143 Progress Progress Note #1: Time: 20:24 Progress Note Zofran 8 mg IV, lactated Ringer, labs and urinalysis. She does not have a surgically acute abdomen. Acute abdomen x-ray. Progress Note #2: Time: 22:25 Progress Note Despite fluids, Phenergan, Zofran she is still having intractable nausea vomiting. We will more fentanyl since she says her belly started hurting again. Probably is having colitis secondary to her recent C. difficile colitis. Probably not infectious. White count is normal. She has no diarrhea. X-rays unremarkable. Plan to observe her for intractable nausea and hypokalemia. We gave her 10 mg of potassium IV already. EKG is unremarkable. Initial ECG Impression Date: Mar 02, 2019 Initial ECG Impression Time: 21:47 Initial ECG Rate: 104 Initial ECG Rhythm: Normal Sinus, S.Tach Initial ECG Intervals: Normal Initial ECG Impression: Normal, Nonspecific Changes Comment No clinically evident ST elevation or depression. Sinus tachycardia. Diagnostic Imaging Diagonstic Imaging: Xray Plain Films/CT/US/NM/MRI: abdomen Comments NAME: DORIAN BROWN [facility] REC#: [id number] PT STATUS: REG ER : 1975 PHYSICIAN: PAULA COLINDRES MD ADMIT DATE: 03/02/19/ER Signed Date of Exam:03/02/19 ACUTE ABD SERIES EXAM: ACUTE ABD SERIES INDICATION: Fever and chills. COMPARISON: 12/16/2018. FINDINGS: Normal heart size and pulmonary vascularity. No dense consolidation, pleural effusion or pneumothorax. No acute osseous findings. No free intraperitoneal air. Nonspecific bowel gas pattern. Moderate amount of stool in the proximal colon. Cholecystectomy clips. No acute osseous findings. IMPRESSION: No acute radiographic findings in the chest or abdomen. Dictated by: Dictated on workstation # [id number] Dict: 03/02/192117 Trans: 03/02/192210 [facility] [id number] Interpreted by: CHEY MENESES MD Electronically signed by: CHEY MENESES MD 03/02/192210 Reviewed: Reviewed by Me Departure Communication (Admissions) Time/Spoke to Admitting Phy: 23:20 Dr. Deras agrees to observe the patient for intractable nausea vomiting secondary to gastroenteritis. Impression Primary Impression: Gastroenteritis Additional Impressions: Intractable nausea and vomiting Qualified Codes: R11.2 - Nausea with vomiting, unspecified Hypokalemia Disposition: ADMITTED INPATIENT Condition: Stable Admissions Decision to Admit Reason: Admit from ER (General) Decision to Admit/Date: Mar 02, 2019 Time/Decision to Admit Time: 22:00 Departure-Patient Inst. Referrals: KARINA COOMBS MD (PCP/Family) Primary Care Physician PAULA COLINDRES Mar 02, 2019 20:20
[2019-03-02 20:32] LABS: ALANINE AMINOTRANSFERASE 67 U/L (0-55); ALBUMIN 4.5 GM/DL (3.2-4.5); ALKALINE PHOSPHATASE 92 U/L (40-136); BILIRUBIN,TOTAL 0.6 MG/DL (0.1-1.0); BUN/CREATININE RATIO 10; CALCIUM 10.2 MG/DL (8.5-10.1); CARBON DIOXIDE 31 MMOL/L (21-32); CHLORIDE 92 MMOL/L (98-107); CREATININE SERUM 0.91 MG/DL (0.60-1.30); GFR ESTIMATED > 60; GLUCOSE 112 MG/DL (70-105); LIPASE 109 U/L (8-78); SODIUM 139 MMOL/L (135-145); TOTAL PROTEIN 7.8 GM/DL (6.4-8.2)
[2019-03-02 20:43] LABS: POTASSIUM 2.3 MMOL/L (3.6-5.0)
[2019-03-02] MEDS ORDERED: POTASSIUM CL 10MEQ/50ML IVPB 50 ML IV ONE (21:00)
[2019-03-02] MEDS ORDERED: NS IV 1000 ML 1,000 ML IV SCH (21:19)
--- NOTE | 2019-03-02 21:23 | Diagnostic Imaging Report ---
EXAM: ACUTE ABD SERIES INDICATION: Fever and chills. COMPARISON: 12/16/2018. FINDINGS: Normal heart size and pulmonary vascularity. No dense consolidation, pleural effusion or pneumothorax. No acute osseous findings. No free intraperitoneal air. Nonspecific bowel gas pattern. Moderate amount of stool in the proximal colon. Cholecystectomy clips. No acute osseous findings. IMPRESSION: No acute radiographic findings in the chest or abdomen. Dictated by: Dictated on workstation # [id number]
[2019-03-02] MEDS ORDERED: PROMETHAZINE INJ 25 MG/ML (PHENERGAN) AMP IVP ONE (21:30)
[2019-03-02] MEDS ORDERED: NS IV 1000 ML 1,000 ML ONE (21:38)
--- NOTE | 2019-03-02 23:11 | NUR ---
DORIAN BROWN admitted to room 425-1, with an admitting diagnosis of ABD PAIN, on 03/02/19 from ED via WHEELCHAIR, accompanied by STAFF.DORIAN BROWN introduced to surroundings, call light, bed controls, phone, TV, temperature control, lights, meal times, smoking policy, visitor policy, side rail policy, bathrooms and showers. Patient Rights given to patient in the handbook. DORIAN BROWN verbalizes understanding that [facility] is not responsible for the loss or damage to any personal effects or valuables that are kept in the patients posession during their hospitalization.
[2019-03-02] MEDS ORDERED: POTASSIUM CHLORIDE INJ 40 MEQ in 1/2 NS IV SOLUTION 1,000 ML IV SCH (23:45)
[2019-03-03] VITALS (8 sets, daily range): BP systolic 107–189; BP diastolic 78–117
[2019-03-03] MEDS ORDERED: NS W/KCL 40 MEQ/L 1,000 ML IV ONE (01:19)
[2019-03-03] MEDS: NS W/KCL 40 MEQ/L 1,000 ML IV SCH ×4 (01:22→18:22)
[2019-03-03] MEDS: fentaNYL INJECTION 100 MCG/2 ML AMP IV PRN ×8 (01:22→17:39)
[2019-03-03] MEDS: PROMETHAZINE INJ 25 MG/ML (PHENERGAN) AMP IV PRN ×3 (02:50→18:21)
[2019-03-03 07:17] LABS: BASOPHILS % (AUTO) 0 % (0-10); EOSINOPHILS % (AUTO) 0 % (0-10); HEMATOCRIT 40 % (35-52); HEMOGLOBIN 13.5 G/DL (11.5-16.0); LYMPHOCYTES # (AUTO) 1.1 X 10^3 (1.0-4.0); LYMPHOCYTES % (AUTO) 23 % (12-44); MEAN CORPUSCULAR HEMOGLOBIN 29 PG (25-34); MEAN CORPUSCULAR HGB CONC 34 G/DL (32-36); MEAN CORPUSCULAR VOLUME 87 FL (80-99); MEAN PLATELET VOLUME 9.8 FL (7.4-10.4); MONOCYTES # (AUTO) 0.4 X 10^3 (0.0-1.0); MONOCYTES % (AUTO) 9 % (0-12); NEUTROPHILS # (AUTO) 3.1 X 10^3 (1.8-7.8); NEUTROPHILS % (AUTO) 68 % (42-75); PLATELET COUNT 293 10^3/uL (130-400); RED CELL DISTRIBUTION WIDTH 14.9 % (10.0-14.5); WHITE BLOOD COUNT 4.7 10^3/uL (4.3-11.0)
[2019-03-03] MEDS ORDERED: FLU QUADRIvalent (5+ YOA) 2019-2020 (AFLURIA) 0.5 ML IM ONE ×2 (07:30→15:30)
[2019-03-03 07:35] LABS: ALANINE AMINOTRANSFERASE 71 U/L (0-55); ALBUMIN 4.2 GM/DL (3.2-4.5); ALKALINE PHOSPHATASE 81 U/L (40-136); BILIRUBIN,TOTAL 0.5 MG/DL (0.1-1.0); BUN/CREATININE RATIO 7; CALCIUM 9.2 MG/DL (8.5-10.1); CARBON DIOXIDE 30 MMOL/L (21-32); CHLORIDE 100 MMOL/L (98-107); CREATININE SERUM 0.76 MG/DL (0.60-1.30); GFR ESTIMATED > 60; GLUCOSE 129 MG/DL (70-105); POTASSIUM 3.2 MMOL/L (3.6-5.0); SODIUM 141 MMOL/L (135-145); TOTAL PROTEIN 7.1 GM/DL (6.4-8.2)
[2019-03-03] MEDS: PANTOPRAZOLE 40 MG (PROTONIX) VIAL IV SCH (08:17)
[2019-03-03] MEDS ORDERED: NS IV 1000 ML 1,000 ML ONE (08:52)
[2019-03-03] MEDS ORDERED: NS IV 1000 ML 1,000 ML IV ONE (09:00)
[2019-03-03] MEDS: POTASSIUM CL 10MEQ/50ML IVPB 50 ML IV SCH ×4 (09:12→13:26)
[2019-03-03] MEDS: ONDANSETRON 4 MG/2 ML (SDV) Z0FRAN IV PRN ×2 (09:12→15:12)
[2019-03-03] MEDS ORDERED: TRAM50TA2 PO (09:46)
[2019-03-03] MEDS ORDERED: PROM25TA14 PO (09:46)
[2019-03-03] MEDS ORDERED: AMLO5TAB9 PO (09:46)
[2019-03-03] MEDS ORDERED: DULO60CA6 PO (09:46)
[2019-03-03] MEDS ORDERED: ONDA4TAB11 PO (09:46)
--- NOTE | 2019-03-03 09:50 | NUR ---
SPOKE WITHE THE PATIENT ABOUT HER MEDICATIONS. WE WENT OVER THE LIST [facility] REPORTED FILLING RECENTLY AND SHE VERIFIED HOW SHE TAKES THEM. [facility] FILLED: 02-27-19 TIZANIDINE 4MG BID #60 (TAKES PRN) 02-27-19 TRAMADOL 50MG DAILY #30 (TAKES HS PRN) 02-25-19 ZOFRAN ODT 4MG TID #30 (TAKES PRN) 02-21-19 PROMETHAZINE 25MG Q8H PRN #28 02-12-19 DICYCLOMINE 20MG QID 02-09-19 VANCO 125MG Q6H X 10 DAYS (FINISHED) 02-04-19 CYMBALTA 60MG DAILY 02-04-19 CYMBALTA 30MG DAILY X 7 DAYS (FINISHED) 01-29-19 AMLODIPINE 5MG DAILY #30 (STATES SHE NEEDS TO GET IT REFILLED) 12-18-18 AMITRIPTYLINE 10MG HS #30 (NO LONGER TAKING) 08-08-18 PROPRANOLOL 80MG BID #60 (STATES SHE IS STILL TAKING HAS A SUPPLY BUILT UP ON HAND AT HOME THAT SHE HAS NOT FINISHED YET) DOES NOT TAKE ANYTHING OTC.
--- NOTE | 2019-03-03 12:14 | History & Physical ---
PINKY MCCRARY, 03/03/19 1213: HPI History of Present Illness: CC: 8 days of nausea and vomiting HPI: Pt has been having 8 days of nausea and vomiting. Denies a known trigger. Has abdominal pain but no diarrhea or constipation. Loss of appetite and has lost 8# in 8 days. Most recent vomiting was 45 minutes prior to exam. Source: patient Exam Limitations: no limitations Date seen by provider: Mar 03, 2019 Time Seen by Provider: 08:08 Attending Physician Kraig Jimenez MD PCP Jose Ramos MD Consult Date of Admission Mar 02, 2019 at 22:30 Home Medications Home Medications Reviewed patient Home Medication Reconciliation performed by pharmacy medication reconciliations electronic bench technician and/or nursing. Patients Allergies have been reviewed. Allergies Coded Allergies: morphine (Verified Allergy, Unknown, CAUSES "REBOUND HEADACHES", 08/20/13) baclofen (Verified Adverse Reaction, Severe, 06/13/15) PATIENT UNAWARE OF REACTION BUT WAS HOSPITALIZED AFTER TAKING MEDICATION AND WAS TOLD IT WAS A REACTION DUE TO THE MEDICATION SHE TOOK. meloxicam (Verified Adverse Reaction, Severe, 06/13/15) PATIENT UNAWARE OF REACTION BUT WAS HOSPITALIZED AFTER TAKING MEDICATION AND WAS TOLD IT WAS A REACTION DUE TO THE MEDICATION SHE TOOK. NSAIDS (Non-Steroidal Anti-Inflamma (Verified Adverse Reaction, Mild, have IBS and avoid NSAIDS, 12/04/12) [id number] Hx Patient Social History Alcohol Use: Denies Use Recreational Drug Use: No (former hx) Drug of Choice: Marijuana; most recent use 5 mo ago Smoking Status: Never a Smoker 2nd Hand Smoke Exposure: No Recent Foreign Travel: No Contact w/other who traveled: No Recent Hopitalizations: No Recent Infectious Disease Expo: No Immunizations Up To Date Tetanus Booster (TDap): More than 5yrs Date of Pneumonia Vaccine: Mar 03, 2014 Date of Influenza Vaccine: Mar 03, 2015 Past Medical History 1. IRRITABLE BOWEL SYNDROME 2. DEPRESSION 3. MOOD DISORDER 4. CHRONIC BACK PAIN 5. HYSTERECTOMY 6. TUBAL LIGATION 7. BLADDER "TIE UP" 8. TONSILLECTOMY 9. SEIZURES Family Medical History Significant Family History: Heart Disease (father), Hypertension (father), Other Conditions/Hx (brain tumor in mother; did not state if benign or malignant) Family History: Diabetes mellitus 19 FATHER FHx: brain tumor 19 MOTHER HPV infection G8 SISTER No Family History of: AIDS Abdominal aortic aneurysm Madi's disease Alcoholism Alzheimer's disease Aphasia Arthritis Asthma Cancer of mouth Cardiovascular disease Cataracts Colon cancer Completed stroke Congenital disease Congenital heart disease Coronary thrombosis Cystic fibrosis Deafness or hearing loss Dementia Drug abuse Dysphasia Fibrocystic disease of breast Gastroenteritis Glaucoma Headache disorder Hypercholesterolemia Hypertension Infertility Kidney disease Myocardial infarction Neoplasm Not obtainable due to adoption Osteoporosis Parkinson's disease Prostate cancer Psychosocial problem Respiratory disorder Seizure disorder Severe allergy Thyroid disease Tuberculosis Visual disorder Review of Systems ([facility]) Constitutional: No chills, No fever; weight loss (8#) EENTM: No hearing loss, No vision loss Respiratory: No cough Cardiovascular: No chest pain, No palpitations Gastrointestinal: abdominal pain; No constipation; diarrhea, nausea, vomiting Genitourinary: No dysuria, No frequency Musculoskeletal: No muscle pain, No muscle weakness Skin: No lesions, No rash Psychiatric/Neurological: Anxiety, Depressed, Headache; Denies Numbness Physical Exam-([facility]) Physical Exam Vital Signs VS - Last 72 Hours, by Label 03/02/19 03/02/19 03/03/19 03/03/19 19:47 22:47 00:04 01:00 Temp 37.9 37.9 Pulse 115 115 90 108 Resp 20 20 B/P (MAP) 180/125 (143) 171/94 (143) Pulse Ox 99 99 O2 Delivery Room Air 03/03/19 03/03/19 03/03/19 03/03/19 02:33 02:36 04:00 07:00 Temp 36.7 37.2 Pulse 99 102 96 Resp 20 20 B/P (MAP) 170/90 189/90 (123) Pulse Ox 99 96 O2 Delivery Room Air Room Air Room Air 03/03/19 03/03/19 08:00 09:00 Temp 36.8 Pulse 101 Resp 16 B/P (MAP) 107/78 (88) O2 Delivery Room Air Room Air Capillary Refill : Less Than 3 Seconds Eyes: Bilateral Eye Normal Inspection, Bilateral Eye EOMI HEENT: pharynx normal; No pale conjunctivae (R), No pale conjunctivae (L) Neck: non-tender Respiratory: chest non-tender, lungs clear, normal breath sounds, no respiratory distress, no accessory muscle use Cardiovascular: regular rate, rhythm, tachycardia Gastrointestinal: normal bowel sounds, guarding, tenderness (all quadrants) Extremities: normal inspection, no pedal edema Neurologic/Psychiatric: alert, oriented x 3 Skin: normal color, warm/dry Lymphatic: no adenopathy Assessment/Plan Assessment/Plan Assessment & Plan Assessment: 1. Infectious gastritis 2. Intractable nausea and vomiting 3. R/O cyclic vomiting syndrome 4. R/O brain tumor Plan: 1. NPO and increase diet as tolerated. Consult surgery and perform abdominal/pelvis CT with contrast 2. Continue zofran 3. Pt has past hx of marijuana use 5 months ago; doubtful dx 4. CT of brain if CT abdomen negative Clinical Quality Measures DVT/VTE Risk/Contraindication: Risk Factor Score Per Nursin RFS Level Per Nursing on Admit: 1=Low/No VTE PPX KRAIG JIMENEZ MD 03/03/19 1413: HPI History of Present Illness: Date seen by provider: Mar 03, 2019 Time Seen by Provider: 10:55 Home Medications Allergies Coded Allergies: morphine (Verified Allergy, Unknown, CAUSES "REBOUND HEADACHES", 08/20/13) baclofen (Verified Adverse Reaction, Severe, 06/13/15) PATIENT UNAWARE OF REACTION BUT WAS HOSPITALIZED AFTER TAKING MEDICATION AND WAS TOLD IT WAS A REACTION DUE TO THE MEDICATION SHE TOOK. meloxicam (Verified Adverse Reaction, Severe, 06/13/15) PATIENT UNAWARE OF REACTION BUT WAS HOSPITALIZED AFTER TAKING MEDICATION AND WAS TOLD IT WAS A REACTION DUE TO THE MEDICATION SHE TOOK. NSAIDS (Non-Steroidal Anti-Inflamma (Verified Adverse Reaction, Mild, have IBS and avoid NSAIDS, 12/04/12) [id number] Hx Family Medical History Family History: Diabetes mellitus 19 FATHER FHx: brain tumor 19 MOTHER HPV infection G8 SISTER No Family History of: AIDS Abdominal aortic aneurysm Madi's disease Alcoholism Alzheimer's disease Aphasia Arthritis Asthma Cancer of mouth Cardiovascular disease Cataracts Colon cancer Completed stroke Congenital disease Congenital heart disease Coronary thrombosis Cystic fibrosis Deafness or hearing loss Dementia Drug abuse Dysphasia Fibrocystic disease of breast Gastroenteritis Glaucoma Headache disorder Hypercholesterolemia Hypertension Infertility Kidney disease Myocardial infarction Neoplasm Not obtainable due to adoption Osteoporosis Parkinson's disease Prostate cancer Psychosocial problem Respiratory disorder Seizure disorder Severe allergy Thyroid disease Tuberculosis Visual disorder Reviewed Test Results Reviewed Test Results Lab Laboratory Tests Test 03/02/19 19:55 03/03/19 07:10 Range/Units White Blood Count 5.7 4.7 4.3-11.0 10^3/uL Red Blood Count 5.03 4.61 4.35-5.85 10^6/uL Hemoglobin 14.6 13.5 11.5-16.0 G/DL Hematocrit 43 40 35-52 % Mean Corpuscular Volume 86 87 80-99 FL Mean Corpuscular Hemoglobin 29 29 25-34 PG Mean Corpuscular Hemoglobin Concent 34 34 32-36 G/DL Red Cell Distribution Width 14.9 H 14.9 H 10.0-14.5 % Platelet Count 312 293 130-400 10^3/uL Mean Platelet Volume 10.3 9.8 7.4-10.4 FL Neutrophils (%) (Auto) 55 68 42-75 % Lymphocytes (%) (Auto) 35 23 12-44 % Monocytes (%) (Auto) 10 9 0-12 % Eosinophils (%) (Auto) 0 0 0-10 % Basophils (%) (Auto) 0 0 0-10 % Neutrophils # (Auto) 3.1 3.1 1.8-7.8 X 10^3 Lymphocytes # (Auto) 2.0 1.1 1.0-4.0 X 10^3 Monocytes # (Auto) 0.6 0.4 0.0-1.0 X 10^3 Eosinophils # (Auto) 0.0 0.0 0.0-0.3 10^3/uL Basophils # (Auto) 0.0 0.0 0.0-0.1 10^3/uL Sodium Level 139 141 135-145 MMOL/L Potassium Level 2.3 *L 3.2 L 3.6-5.0 MMOL/L Chloride Level 92 L 100 98-107 MMOL/L Carbon Dioxide Level 31 30 21-32 MMOL/L Anion Gap 16 H 11 5-14 MMOL/L Blood Urea Nitrogen 9 5 L 7-18 MG/DL Creatinine 0.91 0.76 0.60-1.30 MG/DL Estimat Glomerular Filtration Rate > 60 > 60 BUN/Creatinine Ratio 10 7 Glucose Level 112 H 129 H 70-105 MG/DL Calcium Level 10.2 H 9.2 8.5-10.1 MG/DL Corrected Calcium 9.8 9.0 8.5-10.1 MG/DL Total Bilirubin 0.6 0.5 0.1-1.0 MG/DL Aspartate Amino Transf (AST/SGOT) 97 H 84 H 5-34 U/L Alanine Aminotransferase (ALT/SGPT) 67 H 71 H 0-55 U/L Alkaline Phosphatase 92 81 40-136 U/L C-Reactive Protein High Sensitivity 0.92 H 0.00-0.50 MG/DL Total Protein 7.8 7.1 6.4-8.2 GM/DL Albumin 4.5 4.2 3.2-4.5 GM/DL Lipase 109 H 8-78 U/L Physical Exam-([facility]) Physical Exam General Appearance: WD/WN, mild distress Respiratory: lungs clear, normal breath sounds Cardiovascular: no murmur, tachycardia Gastrointestinal: normal bowel sounds, guarding, tenderness (all quadrants) Extremities: normal inspection, no pedal edema Neurologic/Psychiatric: alert Skin: normal color, warm/dry Assessment/Plan Assessment/Plan Admission Status: Observation (1) Elevated liver enzymes Status: Chronic Assessment & Plan: Negative hepatitis panel and normal liver ultrasound in 2017 in clinic. Will repeat acute hepatitis panel due to current symptoms. (2) Hypokalemia Status: Acute Assessment & Plan: Replace and follow. (3) Intractable nausea and vomiting Status: Acute Assessment & Plan: IVF, ondansetron, promethazine. Consult Surgery given that she had significant bowel issues last time. Check CTAP with IV and oral contrast. Qualifiers: Qualified Codes: R11.2 - Nausea with vomiting, unspecified (4) DVT prophylaxis Status: Acute Assessment & Plan: SCDs Supervisory-Addendum Brief Verification & Attestation Participated in pt care: history, MDM, physical Personally performed: exam, history, MDM, supervision of care Care discussed with: Medical Student Procedures: n/a Verification and Attestation of Medical Student E/M Service A medical student performed and documented this service in my presence. I reviewed and verified all information documented by the medical student and made modifications to such information, when appropriate. I personally performed the physical exam and medical decision making. See my note for my physical exam and problem list for my assessment and plan. Kriag Jimenez, Mar 03, 2019,14:14 PINKY MCCRARY, Mar 03, 2019 12:13 KRAIG JIMENEZ MD Mar 03, 2019 14:13
--- NOTE | 2019-03-03 14:21 | History & Physical-Surgical ---
History of Present Illness History of Present Illness Reason for visit/HPI CC: Abdominal Pain HPI: Patient states she has had diffuse abdominal pain and n/v for 8 days. Also states that she has vomited 8 times this morning. Nausea and vomiting is made worse after eating and drinking and states that she can not keep anything down. Abdominal Pain is constant. Date of Admission Mar 02, 2019 at 22:30 Date Seen by a Provider: Mar 03, 2019 Time Seen by a Provider: 11:45 I consulted on this patient on 03/03/19 14:15 Attending Physician Kraig Jimenez MD Admitting Physician Jose Ramos MD Consult Dr. Gramajo Allergies and Home Medications Allergies Coded Allergies: morphine (Verified Allergy, Unknown, CAUSES "REBOUND HEADACHES", 08/20/13) baclofen (Verified Adverse Reaction, Severe, 06/13/15) PATIENT UNAWARE OF REACTION BUT WAS HOSPITALIZED AFTER TAKING MEDICATION AND WAS TOLD IT WAS A REACTION DUE TO THE MEDICATION SHE TOOK. meloxicam (Verified Adverse Reaction, Severe, 06/13/15) PATIENT UNAWARE OF REACTION BUT WAS HOSPITALIZED AFTER TAKING MEDICATION AND WAS TOLD IT WAS A REACTION DUE TO THE MEDICATION SHE TOOK. NSAIDS (Non-Steroidal Anti-Inflamma (Verified Adverse Reaction, Mild, have IBS and avoid NSAIDS, 12/04/12) Home Medications Amlodipine Besylate 10 Mg Tablet, 10 MG PO DAILY Prescribed by: KRAIG JIMENEZ on 03/05/191558 Dicyclomine HCl 20 Mg Tablet, 20 MG PO QID, (Reported) Duloxetine HCl 60 Mg Capsule.dr, 60 MG PO DAILY, (Reported) Ondansetron 4 Mg Tab.rapdis, 4 MG PO TID PRN for NAUSEA/VOMITING-1ST LINE, (Reported) Pantoprazole Sodium 40 Mg Tablet.dr, 40 MG PO DAILY Prescribed by: KRAIG JIMENEZ on 03/05/191558 Promethazine HCl 25 Mg Tablet, 25 MG PO Q6H PRN for NAUSEA/VOMITING-2ND LINE, (Reported) Propranolol HCl 80 Mg Tablet, 80 MG PO TID Prescribed by: KRAIG JIMENEZ on 03/05/191558 Sucralfate 1 Gm Tablet, 1 GM PO ACHS Prescribed by: KRAIG JIMENEZ on 03/05/191558 Tizanidine HCl 4 Mg Tablet, 4 MG PO BID PRN for MUSCLE SPASMS, (Reported) Tramadol HCl 50 Mg Tablet, 50 MG PO HS PRN for PAIN-MODERATE, (Reported) Past [id number] Hx Patient Social History Alcohol Use: Denies Use Recreational Drug Use: No (former hx) Drug of Choice: Marijuana; most recent use 5 mo ago Smoking Status: Never a Smoker 2nd Hand Smoke Exposure: No Recent Foreign Travel: No Contact w/Someone Who Travel: No Recent Infectious Disease Expo: No Recent Hopitalizations: No Immunizations Up To Date Tetanus Booster (TDap): More than 5yrs PED Vaccines UTD: No Date of Pneumonia Vaccine: Mar 03, 2014 Date of Influenza Vaccine: Mar 03, 2015 Seasonal Allergies Seasonal Allergies: No Surgeries History of Surgeries: Yes Surgeries: Bladder Surgery, Gallbladder, 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, Oophorectomy, Tubal Ligation Respiratory History of Respiratory Disorde: Yes Respiratory Disorders: Asthma Cardiovascular History of Cardiac Disorders: No Neurological History of Neurological Disord: Yes ("SEIZURE WITH LOW BP" PER PT) Neurological Disorders: Headaches /Migraines, Seizure Disorder 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 System Hx 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 Disorders: Yes ([facility] 2005--NO PHYSICIAN DOCUMENTATION OF ANY KIND OF CANCER) Sexually Transmitted Disease: Yes (HPV) HIV/AIDS: No 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 Disorders: Denies 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 Genitourinary History of Genitourinary Disor: Yes Genitourinary Disorders: Bladder Infection Gastrointestinal History of Gastrointestinal Di: Yes Gastrointestinal Disorders: Irritable Bowel Musculoskeletal History of Musculoskeletal Dis: Yes Musculoskeletal Disorders: Chronic Back Pain Endocrine History of Endocrine Disorders: No HEENT History of HEENT Disorders: Yes (POOR DENTITION) Loss of Vision: Denies Cancer History of Cancer: No (NO PHYSICIAN DOCUMENTATION / VERIFICATION OF ANY KIND OF CANCER) Cancer: Cervical, Colon Psychosocial History of Psychiatric Problem: Yes Behavioral Health Disorders: Anxiety, Depression Integumentary History of Skin or Integumenta: No Blood Transfusions History of Blood Disorders: No Adverse Reaction to a Blood Tr: No Family Medical History Significant Family History: Heart Disease (father), Hypertension (father), Other Conditions/Hx (brain tumor in mother; did not state if benign or malignant) Family Medial History: Diabetes mellitus 19 FATHER FHx: brain tumor 19 MOTHER HPV infection G8 SISTER No Family History of: AIDS Abdominal aortic aneurysm [place]'s disease Alcoholism Alzheimer's disease Aphasia Arthritis Asthma Cancer of mouth Cardiovascular disease Cataracts Colon cancer Completed stroke Congenital disease Congenital heart disease Coronary thrombosis Cystic fibrosis Deafness or hearing loss Dementia Drug abuse Dysphasia Fibrocystic disease of breast Gastroenteritis Glaucoma Headache disorder Hypercholesterolemia Hypertension Infertility Kidney disease Myocardial infarction Neoplasm Not obtainable due to adoption Osteoporosis Parkinson's disease Prostate cancer Psychosocial problem Respiratory disorder Seizure disorder Severe allergy Thyroid disease Tuberculosis Visual disorder Review of Systems Constitutional: No chills, No dizziness, No fever EENTM: no symptoms reported Respiratory: No cough, No short of breath Cardiovascular: No chest pain Gastrointestinal: see HPI, abdominal pain (diffuse), constipation; No diarrhea; loss of appetite, nausea, vomiting Musculoskeletal: no symptoms reported Skin: no symptoms reported Physical Exam Vital Signs Vital Signs - First Documented 03/02/19 03/05/19 03/05/19 19:47 09:45 14:25 Temp 37.9 Pulse 115 Resp 20 B/P (MAP) 180/125 (143) Pulse Ox 99 O2 Delivery Room Air O2 Flow Rate 10 FiO2 21 Capillary Refill : Less Than 3 Seconds Height, Weight, BMI Height: 5'6.00" Weight: 203lbs. 6.4oz. [id number]; 28.65 BMI Method:Stated General Appearance: No Apparent Distress, WD/WN HEENT: PERRL/EOMI Respiratory: Chest Non Tender, No Accessory Muscle Use, No Respiratory Distress Cardiovascular: No JVD, Normal Peripheral Pulses, Tachycardia (With Regular rhythm) Gastrointestinal: No Organomegaly, No Pulsatile Mass, Non Tender, Soft, Tenderness Neurologic/Psychiatric: Alert, Oriented x3 Skin: Normal Color, Warm/Dry Data Review Labs Assessment/Plan Assessment/Plan Assessment/Plan Constipation Viral gastroenteritis Colitis Abdominal/Pelvis X-ray Abdomen and Pelvis CT scan Clinical Quality Measures DVT/VTE Risk/Contraindication: Risk Factor Score Per Nursin RFS Level Per Nursing on Admit: 1=Low/No VTE PPX EBONY PANDEY MED STUDEN Mar 03, 2019 14:21
[2019-03-03] MEDS ORDERED: NS 100 ML (IVPB) BAG IV ONE (14:30)
[2019-03-03] MEDS ORDERED: HOLD METFORMIN - RECEIVED CONTRAST 20 ML VIAL IV SCH (14:30)
[2019-03-03] MEDS ORDERED: IOHEXOL 350 MG/ML 100 ML (OMNIPAQUE 350) VIAL IV ONE (14:30)
[2019-03-03] MEDS ORDERED: DIATRIZOATE MEGLUM/SODIUM 37% 120 ML (GASTROGRAFIN) PO ONE (16:00)
--- NOTE | 2019-03-03 16:27 | Consultation - Surgery ---
[facility] 03/03/19 1627: History of Present Illness History of Present Illness Patient Consulted On(jayda/time) 03/03/19 16:21 Date Seen by Provider: Mar 03, 2019 Time Seen by Provider: 12:20 Reason for Visit: Consultation with Dr. Deras due to Abdominal pain and n/v History of Present Illness CC: Abdominal Pain HPI: Patient states she has had diffuse abdominal pain and n/v for 8 days. Also states that she has vomited 8 times this morning. Nausea and vomiting is made worse after drinking liquids and states that she can not keep liquids down. Abdominal Pain is constant. Nothing makes it better. Severe pain that does vary in intensity. Abdominal Pain is generalized but does not travel to chest. Complains of constipation and denies any diarrhea. X-ray showed moderate amount of stool in the proximal colon. CT results pending. Chemistry showed Hypokalemia and hypochloremia. Labs also showed elevated liver enzymes and slightly elevated lipase. Allergies and Home Medications Allergies Coded Allergies: morphine (Verified Allergy, Unknown, CAUSES "REBOUND HEADACHES", 08/20/13) baclofen (Verified Adverse Reaction, Severe, 06/13/15) PATIENT UNAWARE OF REACTION BUT WAS HOSPITALIZED AFTER TAKING MEDICATION AND WAS TOLD IT WAS A REACTION DUE TO THE MEDICATION SHE TOOK. meloxicam (Verified Adverse Reaction, Severe, 06/13/15) PATIENT UNAWARE OF REACTION BUT WAS HOSPITALIZED AFTER TAKING MEDICATION AND WAS TOLD IT WAS A REACTION DUE TO THE MEDICATION SHE TOOK. NSAIDS (Non-Steroidal Anti-Inflamma (Verified Adverse Reaction, Mild, have IBS and avoid NSAIDS, 12/04/12) Home Medications Amlodipine Besylate 5 Mg Tablet, 5 MG PO DAILY, (Reported) LAST FILLED #30 01-29-19 Dicyclomine HCl 20 Mg Tablet, 20 MG PO QID, (Reported) Duloxetine HCl 60 Mg Capsule.dr, 60 MG PO DAILY, (Reported) Ondansetron 4 Mg Tab.rapdis, 4 MG PO TID PRN for NAUSEA/VOMITING-1ST LINE, (Reported) Promethazine HCl 25 Mg Tablet, 25 MG PO Q6H PRN for NAUSEA/VOMITING-2ND LINE, (Reported) Propranolol HCl 80 Mg Tablet, 80 MG PO BID, (Reported) LAST FILLED #60 08-08-18 Tizanidine HCl 4 Mg Tablet, 4 MG PO BID PRN for MUSCLE SPASMS, (Reported) Tramadol HCl 50 Mg Tablet, 50 MG PO HS PRN for PAIN-MODERATE, (Reported) Past Oavopto-Uhbeca-Rrhycx Hx Patient Social History Alcohol Use: Denies Use Recreational Drug Use: No (former hx) Drug of Choice: Marijuana; most recent use 5 mo ago Smoking Status: Never a Smoker 2nd Hand Smoke Exposure: No Recent Foreign Travel: No Contact w/Someone Who Travel: No Recent Infectious Disease Expo: No Recent Hopitalizations: No Immunizations Up To Date Tetanus Booster (TDap): More than 5yrs PED Vaccines UTD: No Date of Pneumonia Vaccine: Mar 03, 2014 Date of Influenza Vaccine: Mar 03, 2015 Seasonal Allergies Seasonal Allergies: No Surgeries History of Surgeries: Yes Surgeries: Bladder Surgery, Gallbladder, 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, Oophorectomy, Tubal Ligation Respiratory History of Respiratory Disorde: Yes Respiratory Disorders: Asthma Cardiovascular History of Cardiac Disorders: No Neurological History of Neurological Disord: Yes ("SEIZURE WITH LOW BP" PER PT) Neurological Disorders: Headaches /Migraines, Seizure Disorder 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 System Hx 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 Disorders: Yes (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 Genitourinary History of Genitourinary Disor: Yes Genitourinary Disorders: Bladder Infection Gastrointestinal History of Gastrointestinal Di: Yes Gastrointestinal Disorders: Irritable Bowel Musculoskeletal History of Musculoskeletal Dis: Yes Musculoskeletal Disorders: Chronic Back Pain Endocrine History of Endocrine Disorders: No HEENT History of HEENT Disorders: Yes (POOR DENTITION) Loss of Vision: Denies Cancer History of Cancer: No (NO PHYSICIAN DOCUMENTATION / VERIFICATION OF ANY KIND OF CANCER) Cancer: Cervical, Colon Psychosocial History of Psychiatric Problem: Yes Behavioral Health Disorders: Anxiety, Depression Integumentary History of Skin or Integumenta: No Blood Transfusions History of Blood Disorders: No Adverse Reaction to a Blood Tr: No Family Medical History Significant Family History: Heart Disease (father), Hypertension (father), Other Conditions/Hx (brain tumor in mother; did not state if benign or malignant) Family Medial History: Diabetes mellitus 19 FATHER FHx: brain tumor 19 MOTHER HPV infection G8 SISTER No Family History of: AIDS Abdominal aortic aneurysm Pembroke's disease Alcoholism Alzheimer's disease Aphasia Arthritis Asthma Cancer of mouth Cardiovascular disease Cataracts Colon cancer Completed stroke Congenital disease Congenital heart disease Coronary thrombosis Cystic fibrosis Deafness or hearing loss Dementia Drug abuse Dysphasia Fibrocystic disease of breast Gastroenteritis Glaucoma Headache disorder Hypercholesterolemia Hypertension Infertility Kidney disease Myocardial infarction Neoplasm Not obtainable due to adoption Osteoporosis Parkinson's disease Prostate cancer Psychosocial problem Respiratory disorder Seizure disorder Severe allergy Thyroid disease Tuberculosis Visual disorder Review of Systems-General Constitutional: No chills, No fever, No weakness EENTM: no symptoms reported Respiratory: No cough, No short of breath Gastrointestinal: abdominal pain, constipation; No diarrhea; nausea, vomiting Genitourinary: no symptoms reported Musculoskeletal: no symptoms reported Skin: no symptoms reported Psychiatric/Neurological: No Symptoms Reported Physical Exam-General Problems Physical Exam Vital Signs Vital Signs - First Documented 03/02/19 19:47 Temp 37.9 Pulse 115 Resp 20 B/P (MAP) 180/125 (143) Pulse Ox 99 O2 Delivery Room Air Capillary Refill : Less Than 3 Seconds General Appearance: WD/WN, no apparent distress HEENT: PERRL/EOMI Neck: full range of motion, normal inspection Respiratory: chest non-tender, no respiratory distress, no accessory muscle use Cardiovascular: no edema, no JVD, tachycardia (with regular rhthym) Gastrointestinal: soft, no organomegaly, no pulsatile mass, tenderness Extremities: normal inspection Neurologic/Psychiatric: alert, oriented x 3 Skin: normal color, warm/dry Data Review Labs Laboratory Tests 03/02/19 19:55: White Blood Count 5.7, Red Blood Count 5.03, Hemoglobin 14.6, Hematocrit 43, Mean Corpuscular Volume 86, Mean Corpuscular Hemoglobin 29, Mean Corpuscular Hemoglobin Concent 34, Red Cell Distribution Width 14.9H, Platelet Count 312, Mean Platelet Volume 10.3, Neutrophils (%) (Auto) 55, Lymphocytes (%) (Auto) 35, Monocytes (%) (Auto) 10, Eosinophils (%) (Auto) 0, Basophils (%) (Auto) 0, Neutrophils # (Auto) 3.1, Lymphocytes # (Auto) 2.0, Monocytes # (Auto) 0.6, Eosinophils # (Auto) 0.0, Basophils # (Auto) 0.0, Sodium Level 139, Potassium Level 2.3*L, Chloride Level 92L, Carbon Dioxide Level 31, Anion Gap 16H, Blood Urea Nitrogen 9, Creatinine 0.91, Estimat Glomerular Filtration Rate > 60, BUN/Creatinine Ratio 10, Glucose Level 112H, Calcium Level 10.2H, Corrected Calcium 9.8, Total Bilirubin 0.6, Aspartate Amino Transf (AST/SGOT) 97H, Alanine Aminotransferase (ALT/SGPT) 67H, Alkaline Phosphatase 92, C-Reactive Protein High Sensitivity 0.92H, Total Protein 7.8, Albumin 4.5, Lipase 109H 03/03/19 07:10: White Blood Count 4.7, Red Blood Count 4.61, Hemoglobin 13.5, Hematocrit 40, Mean Corpuscular Volume 87, Mean Corpuscular Hemoglobin 29, Mean Corpuscular Hemoglobin Concent 34, Red Cell Distribution Width 14.9H, Platelet Count 293, Mean Platelet Volume 9.8, Neutrophils (%) (Auto) 68, Lymphocytes (%) (Auto) 23, Monocytes (%) (Auto) 9, Eosinophils (%) (Auto) 0, Basophils (%) (Auto) 0, Neutrophils # (Auto) 3.1, Lymphocytes # (Auto) 1.1, Monocytes # (Auto) 0.4, Eosinophils # (Auto) 0.0, Basophils # (Auto) 0.0, Sodium Level 141, Potassium Level 3.2L, Chloride Level 100, Carbon Dioxide Level 30, Anion Gap 11, Blood Urea Nitrogen 5L, Creatinine 0.76, Estimat Glomerular Filtration Rate > 60, BUN/Creatinine Ratio 7, Glucose Level 129H, Calcium Level 9.2, Corrected Calcium 9.0, Total Bilirubin 0.5, Aspartate Amino Transf (AST/SGOT) 84H, Alanine Aminotransferase (ALT/SGPT) 71H, Alkaline Phosphatase 81, Total Protein 7.1, Albumin 4.2, Thyroid Stimulating Hormone (TSH) 1.21 Radiology X-ray showed moderate amount of stool in the proximal colon. Assessment/Plan Assessment/Plan Assessment/Plan Constipation Viral gastroenteritis Colitis Abdominal/Pelvis X-ray Abdomen and Pelvis CT scan Clinical Quality Measures DVT/VTE Risk/Contraindication: Risk Factor Score Per Nursin RFS Level Per Nursing on Admit: 1=Low/No VTE PPX PENNY GRAMAJO DO 03/04/19 8691: History of Present Illness History of Present Illness History of Present Illness patient is a 43 year old female known to me. She reports nausea and emesis last eight days. She has had multiple episodes of emesis per day. Drinking anything makes worse. Nothing really making it better. She is not having diarrhea like she was. Her abdomianl pain is all over, and varies in intensity. No radiation of pain. ABdomainal x rays showing stool in proximal colon. Ct scan ordered and pending. Had indeterminate c diff on last admission. Allergies and Home Medications Allergies Coded Allergies: morphine (Verified Allergy, Unknown, CAUSES "REBOUND HEADACHES", 08/20/13) baclofen (Verified Adverse Reaction, Severe, 06/13/15) PATIENT UNAWARE OF REACTION BUT WAS HOSPITALIZED AFTER TAKING MEDICATION AND WAS TOLD IT WAS A REACTION DUE TO THE MEDICATION SHE TOOK. meloxicam (Verified Adverse Reaction, Severe, 06/13/15) PATIENT UNAWARE OF REACTION BUT WAS HOSPITALIZED AFTER TAKING MEDICATION AND WAS TOLD IT WAS A REACTION DUE TO THE MEDICATION SHE TOOK. NSAIDS (Non-Steroidal Anti-Inflamma (Verified Adverse Reaction, Mild, have IBS and avoid NSAIDS, 12/04/12) Home Medications Amlodipine Besylate 5 Mg Tablet, 5 MG PO DAILY, (Reported) LAST FILLED #30 19 Dicyclomine HCl 20 Mg Tablet, 20 MG PO QID, (Reported) Duloxetine HCl 60 Mg Capsule.dr, 60 MG PO DAILY, (Reported) Ondansetron 4 Mg Tab.rapdis, 4 MG PO TID PRN for NAUSEA/VOMITING-1ST LINE, (Reported) Promethazine HCl 25 Mg Tablet, 25 MG PO Q6H PRN for NAUSEA/VOMITING-2ND LINE, (Reported) Propranolol HCl 80 Mg Tablet, 80 MG PO BID, (Reported) LAST FILLED #60 08-08-18 Tizanidine HCl 4 Mg Tablet, 4 MG PO BID PRN for MUSCLE SPASMS, (Reported) Tramadol HCl 50 Mg Tablet, 50 MG PO HS PRN for PAIN-MODERATE, (Reported) Patient Home Medication List Home Medication List Reviewed: Yes Past Iapjrya-Ohzeux-Ikvvuf Hx Surgeries Surgeries: Bladder Surgery, Gallbladder, 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, Oophorectomy, Tubal Ligation Respiratory Respiratory Disorders: Asthma Neurological Neurological Disorders: Headaches /Migraines, Seizure Disorder 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 System EVIDENCE SPECIALIST History: 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 Musculoskeletal Musculoskeletal Disorders: Chronic Back Pain Psychosocial Behavioral Health Disorders: Anxiety, Depression Family Medical History Significant Family History: Heart Disease (father), Hypertension (father), Other Conditions/Hx (brain tumor in mother; did not state if benign or malignant) Family Medial History: Diabetes mellitus 19 FATHER FHx: brain tumor 19 MOTHER HPV infection G8 SISTER No Family History of: AIDS Abdominal aortic aneurysm Pembroke's disease Alcoholism Alzheimer's disease Aphasia Arthritis Asthma Cancer of mouth Cardiovascular disease Cataracts Colon cancer Completed stroke Congenital disease Congenital heart disease Coronary thrombosis Cystic fibrosis Deafness or hearing loss Dementia Drug abuse Dysphasia Fibrocystic disease of breast Gastroenteritis Glaucoma Headache disorder Hypercholesterolemia Hypertension Infertility Kidney disease Myocardial infarction Neoplasm Not obtainable due to adoption Osteoporosis Parkinson's disease Prostate cancer Psychosocial problem Respiratory disorder Seizure disorder Severe allergy Thyroid disease Tuberculosis Visual disorder Review of Systems-General Constitutional: no symptoms reported EENTM: no symptoms reported Respiratory: no symptoms reported Cardiovascular: no symptoms reported Gastrointestinal: see HPI Genitourinary: no symptoms reported Musculoskeletal: no symptoms reported Skin: no symptoms reported Psychiatric/Neurological: No Symptoms Reported Physical Exam-General Problems Physical Exam General Appearance: WD/WN, no apparent distress HEENT: PERRL/EOMI Neck: full range of motion, normal inspection Respiratory: chest non-tender, no respiratory distress, no accessory muscle use Cardiovascular: regular rate, rhythm Gastrointestinal: soft, tenderness (diffusely tender with palpation, but does not seem to be but minimal) Back: no CVA tenderness Extremities: normal inspection Neurologic/Psychiatric: veneer gluer II-XII nml as tested, no motor/sensory deficits, alert, normal mood/affect, oriented x 3 Skin: normal color, warm/dry Lymphatic: no adenopathy Assessment/Plan Assessment/Plan Assessment/Plan nauseas and emesis abdominal pain diffuse recent history of colitis hypokalemia patient x ray showing proximal stool in colon. ct scan pending conservative measures at this time no surgical intervention will follow, Supervisory-Addendum Brief Verification & Attestation Participated in pt care: history, MDM, physical Personally performed: exam, history, MDM, supervision of care Care discussed with: Medical Student Procedures: n/a Results interpretation: Verified all documentation Verification and Attestation of Medical Student E/M Service A medical student performed and documented this service in my presence. I reviewed and verified all information documented by the medical student and made modifications to such information, when appropriate. I personally performed the physical exam and medical decision making. Penny Gramajo, Mar 03, 2019,21:10 [facility] Mar 03, 2019 16:27 PENNY GRAMAJO DO Mar 04, 2019 21:07
--- NOTE | 2019-03-03 18:30 | Diagnostic Imaging Report ---
PROCEDURE: CT abdomen and pelvis with contrast. TECHNIQUE: Multiple contiguous axial images were obtained through the abdomen and pelvis after administration of intravenous contrast. Auto Exposure Controls were utilized during the CT exam to meet ALARA standards for radiation dose reduction. INDICATION: Vomiting for 8 days. Abdominal pain. History of uterine cancer. COMPARISON: 01/26/2019. FINDINGS: The heart is unremarkable. The included lung bases are clear, with resolution of the previously noted pleural effusions. The liver, spleen, pancreas, adrenal glands, and kidneys have a normal appearance. The gallbladder is surgically absent. There is no pathologically enlarged mesenteric or retroperitoneal adenopathy. The bowel loops are nondilated. Previously noted bowel wall thickening and hyperemia has improved. There is no free fluid or free air. The osseous structures are age-appropriate. Ureters and bladder are grossly normal. There is no free air, loculated collection, or adenopathy in the pelvis. IMPRESSION: 1. Improved appearance of previously noted bowel wall hyperemia and thickening, likely representing improving enteritis/colitis. No evidence of bowel obstruction. No free fluid or free air. No lymphadenopathy. 2. Resolved bilateral pleural effusions. Dictated by: Dictated on workstation # [id number]
[2019-03-03] MEDS: PROPRANOLOL 20 MG (INDERAL) TABLET PO SCH (20:16)
[2019-03-03 22:27] LABS: HEPATITIS C ANTIBODY C Non-Reactive (Non-Reactive)
[2019-03-04] VITALS (7 sets, daily range): BP systolic 119–169; BP diastolic 81–135
[2019-03-04] MEDS: NS W/KCL 40 MEQ/L 1,000 ML IV SCH ×5 (00:37→20:09)
[2019-03-04] MEDS: fentaNYL INJECTION 100 MCG/2 ML AMP IV PRN ×7 (03:53→21:56)
[2019-03-04 06:02] LABS: BASOPHILS % (AUTO) 0 % (0-10); EOSINOPHILS % (AUTO) 1 % (0-10); HEMATOCRIT 36 % (35-52); HEMOGLOBIN 11.5 G/DL (11.5-16.0); LYMPHOCYTES # (AUTO) 2.2 X 10^3 (1.0-4.0); LYMPHOCYTES % (AUTO) 45 % (12-44); MEAN CORPUSCULAR HEMOGLOBIN 29 PG (25-34); MEAN CORPUSCULAR HGB CONC 32 G/DL (32-36); MEAN CORPUSCULAR VOLUME 91 FL (80-99); MEAN PLATELET VOLUME 9.9 FL (7.4-10.4); MONOCYTES # (AUTO) 0.5 X 10^3 (0.0-1.0); MONOCYTES % (AUTO) 10 % (0-12); NEUTROPHILS # (AUTO) 2.1 X 10^3 (1.8-7.8); NEUTROPHILS % (AUTO) 44 % (42-75); PLATELET COUNT 255 10^3/uL (130-400); RED CELL DISTRIBUTION WIDTH 16.1 % (10.0-14.5); WHITE BLOOD COUNT 4.7 10^3/uL (4.3-11.0)
[2019-03-04 06:27] LABS: ALANINE AMINOTRANSFERASE 56 U/L (0-55); ALBUMIN 3.3 GM/DL (3.2-4.5); ALKALINE PHOSPHATASE 56 U/L (40-136); BILIRUBIN,TOTAL 0.5 MG/DL (0.1-1.0); BUN/CREATININE RATIO 5; CALCIUM 8.8 MG/DL (8.5-10.1); CARBON DIOXIDE 26 MMOL/L (21-32); CHLORIDE 109 MMOL/L (98-107); CREATININE SERUM 0.65 MG/DL (0.60-1.30); GFR ESTIMATED > 60; GLUCOSE 102 MG/DL (70-105); POTASSIUM 4.7 MMOL/L (3.6-5.0); SODIUM 141 MMOL/L (135-145); TOTAL PROTEIN 5.7 GM/DL (6.4-8.2)
[2019-03-04] MEDS: PANTOPRAZOLE 40 MG (PROTONIX) VIAL IV SCH (07:49)
[2019-03-04] MEDS: PROPRANOLOL 20 MG (INDERAL) TABLET PO SCH ×2 (08:06→20:09)
[2019-03-04] MEDS: ONDANSETRON 4 MG/2 ML (SDV) Z0FRAN IV PRN ×2 (08:06→16:31)
[2019-03-04] MEDS: DULoxetine 30 MG (CYMBALTA) CAP PO SCH (08:09)
[2019-03-04] MEDS ORDERED: amLODIPine 5 MG (NORVASC) TAB PO SCH (09:00)
--- NOTE | 2019-03-04 10:35 | NUR ---
DR JIMENEZ NOTIFIED OF PT REPORTING CHEST HEAVINESS AND TROUBLE BREATHING. BP 139/103. 98% ON RA. PT REPORTS SHE THINKS SHE IS FEELING THIS WAY BECAUSE OF ANXIETY AND WOULD LIKE SOMETHING FOR ANXIETY. PT ENCOURAGED TO DEEP BREATH, PT STATED THAT THIS HELPED SOME. NO NEW ORDERS RECEIVED.
[2019-03-04] MEDS: PROMETHAZINE INJ 25 MG/ML (PHENERGAN) AMP IV PRN ×2 (12:57→20:13)
--- NOTE | 2019-03-04 14:43 | Progress Note ---
Subjective Subjective/Events-last exam Afebrile. Vomited once this am. Thinks she may be able to tolerate some solid food. Objective Exam Last Set of Vital Signs Vital Signs Date Time Temp Pulse Resp B/P (MAP) Pulse Ox O2 Delivery O2 Flow Rate FiO2 03/04/19 12:00 37.0 87 18 119/81 (94) 94 Room Air Capillary Refill : Less Than 3 Seconds I&O Intake and Output 03/04/19 00:00 Intake Total 2270 ml Output Total 700 ml Balance 1570 ml Intake Oral 720 ml IV Total 1550 ml Output Urine Total 500 ml Emesis 200 ml # Voids 2 # Emeses 2 Daily Weight Change No No General: Alert, No Acute Distress Lungs: Clear to Auscultation, Normal Air Movement Heart: Regular Rate, No Murmurs Psych/Mental Status: Mental Status NL, Mood NL Results/Procedures Lab Laboratory Tests 03/04/19 05:30: White Blood Count 4.7, Red Blood Count 3.96L, Hemoglobin 11.5, Hematocrit 36, Mean Corpuscular Volume 91, Mean Corpuscular Hemoglobin 29, Mean Corpuscular Hemoglobin Concent 32, Red Cell Distribution Width 16.1H, Platelet Count 255, Mean Platelet Volume 9.9, Neutrophils (%) (Auto) 44, Lymphocytes (%) (Auto) 45H, Monocytes (%) (Auto) 10, Eosinophils (%) (Auto) 1, Basophils (%) (Auto) 0, Neutrophils # (Auto) 2.1, Lymphocytes # (Auto) 2.2, Monocytes # (Auto) 0.5, Eosinophils # (Auto) 0.0, Basophils # (Auto) 0.0, Sodium Level 141, Potassium Level 4.7, Chloride Level 109H, Carbon Dioxide Level 26, Anion Gap 6, Blood Urea Nitrogen 3L, Creatinine 0.65, Estimat Glomerular Filtration Rate > 60, BUN/Creatinine Ratio 5, Glucose Level 102, Calcium Level 8.8, Corrected Calcium 9.4, Total Bilirubin 0.5, Aspartate Amino Transf (AST/SGOT) 50H, Alanine Aminotransferase (ALT/SGPT) 56H, Alkaline Phosphatase 56, Total Protein 5.7L, Albumin 3.3 Radiology X-ray showed moderate amount of stool in the proximal colon. Assessment/Plan Assessment/Plan Assessment & Plan (1) Elevated liver enzymes Status: Chronic Assessment & Plan: Negative hepatitis panel and normal liver ultrasound in 2017 in clinic. Will repeat acute hepatitis panel due to current symptoms. Hep panel neg, LFTs improving (2) Hypokalemia Status: Acute Assessment & Plan: Replace and follow. (3) Intractable nausea and vomiting Status: Acute Assessment & Plan: IVF, ondansetron, promethazine. Consult Surgery given that she had significant bowel issues last time. Check CTAP with IV and oral contrast. 03/04 CT showed resolution of previous findings, given persistent vomiting will check CT brain, EGD tomorrow. Qualifiers: Qualified Codes: R11.2 - Nausea with vomiting, unspecified (4) DVT prophylaxis Status: Acute Assessment & Plan: [facility] [place] Clinical Quality Measures DVT/VTE Risk/Contraindication: Risk Factor Score Per Nursin RFS Level Per Nursing on Admit: 1=Low/No VTE PPX KRAIG JIMENEZ MD Mar 04, 2019 14:43
--- NOTE | 2019-03-04 16:07 | NUR ---
"RD ASSESSMENT PMHx: unknown PMH PT INTERACTION: Pt was awake and pleasant during nutrition assessment. Pt states current appetite is poor and has been for the past week. Note pt has poor dentition, per chart review. Pt states several episodes of nausea and vomiting over the past week, with an episode of emesis this day. Pt states issues with constipation, but mentioned last BM was this day. Pt states no recent weight changes, mentioning that her weight fluctuates. Note unable to determine recent wt hx, per chart review. ABNORMAL NUTRITION-RELATED LAB VALUES: Cl 109 (H); AST 50 (H); ALT 56 (H); BUN 3 (L); Pro 5.7 (L) Est. kcal needs: 7003-6530 kcal (20-25 kcal/kg) Est. Pro needs: 62-78 g Pro (0.8-1.0 g Pro/kg) PES STATEMENT: Inadequate oral intake related to nausea | vomiting as evidenced by pt interview INTERVENTION: Continue with current diet order of clear liquid diet. Encouraged pt to eat when able. MONITOR/EVALUATE: Diet tolerance; PO Intake; Weight Status; Hydration Status; Output; Lab Values Gregoria Schmidt, MS, RD [phone]"
--- NOTE | 2019-03-04 16:45 | NUR ---
DR JIMENEZ NOTIFIED OF MANUAL BP 165/125. PT DENIES SIDE EFFECTS FROM HIGH BP. PT REPORTING CONTINUED PAIN 01/10 IN ABDOMEN. PRN PAIN MEDICATION GIVEN DR JIMENEZ TO PLACE NEW ORDERS IN EMAR. 1718 5MG NORVASC GIVEN FOR ELEVATED BP.
[2019-03-04] MEDS ORDERED: amLODIPine 5 MG (NORVASC) TAB PO NR (17:00)
--- NOTE | 2019-03-04 17:19 | Diagnostic Imaging Report ---
PROCEDURE: CT head without contrast. TECHNIQUE: Multiple contiguous axial images were obtained through the brain without the use of intravenous contrast. Auto Exposure Controls were utilized during the CT exam to meet ALARA standards for radiation dose reduction. INDICATION: Migraine x6 days. COMPARISON: 08/19/2013. FINDINGS: No intracranial hemorrhage, mass effect, hydrocephalus or extra-axial fluid collections. No CT evidence for territorial infarction. Osseous structures are intact. The visualized paranasal sinuses and mastoids are clear. IMPRESSION: No acute intracranial CT findings. Dictated by: Dictated on workstation # [id number]
--- NOTE | 2019-03-04 17:47 | Progress Note - Surgery ---
[facility] 03/04/19 1747: Subjective Date Seen by a Provider: Mar 04, 2019 Time Seen by a Provider: 07:30 Subjective/Events-last exam Patient's nausea and vomiting is much better today. Has not vomited this morning, but did vomit this afternoon after shower. Has had normal stool. Pain is rated at an 8/10 with tenderness more prominent on the left side. Patient denies fevers, chills, sweating, shortness of breath, or chest pain. AST and ALT are trending downwards, Stools are normal. Potassium and chloride are within normal limits. Review of Systems General: No Chills, No Night Sweats Pulmonary: No Cough Cardiovascular: No: Chest Pain Gastrointestinal: Nausea, Vomiting, Abdominal Pain; No: Diarrhea, Constipation Focused Exam Respiratory: Chest Non Tender, Lungs Clear, Normal Breath Sounds, No Accessory Muscle Use, No Respiratory Distress Cardiovascular: Regular Rate, Rhythm, No Edema, No Gallop, No JVD, No Murmur, Normal Peripheral Pulses Skin: normal color, warm/dry Objective Exam Vital Signs Date Time Temp Pulse Resp B/P (MAP) Pulse Ox O2 Delivery O2 Flow Rate FiO2 03/04/19 16:00 37.0 92 20 165/125 (138) 97 Room Air 03/04/19 12:00 37.0 87 18 119/81 (94) 94 Room Air 03/04/19 08:00 36.7 71 18 160/110 (127) 99 Room Air 03/04/19 07:45 99 Room Air 03/04/19 07:00 88 03/04/19 04:55 36.5 68 18 156/103 (120) 96 Room Air 03/04/19 01:00 82 03/04/19 00:05 36.7 79 18 143/90 (107) 93 Room Air 03/03/19 21:38 138/93 (108) 03/03/19 20:00 Room Air 03/03/19 19:48 37.2 97 16 172/117 (135) 100 Room Air 03/03/19 19:00 116 I & O 03/04/19 07:00 Intake Total 2195 ml Output Total 700 ml Balance 1495 ml Capillary Refill : Less Than 3 Seconds General Appearance: No Apparent Distress, WD/WN HEENT: PERRL/EOMI Respiratory: Chest Non Tender, Lungs Clear, Normal Breath Sounds, No Accessory Muscle Use, No Respiratory Distress Cardiovascular: Regular Rate, Rhythm, No Edema, No Gallop, No JVD, No Murmur, Normal Peripheral Pulses, Tachycardia (With Regular rhythm) Peripheral Pulses: 2+ Dorsalis Pedis (R), 2+ Left Dors-Pedis (L) Gastrointestinal: soft, no organomegaly, no pulsatile mass, tenderness (More tenderness at the left lower quadrant) Neurologic/Psychiatric: Alert, Oriented x3 Skin: Normal Color, Warm/Dry Results Lab Laboratory Tests 03/04/19 05:30: White Blood Count 4.7, Red Blood Count 3.96L, Hemoglobin 11.5, Hematocrit 36, Mean Corpuscular Volume 91, Mean Corpuscular Hemoglobin 29, Mean Corpuscular Hemoglobin Concent 32, Red Cell Distribution Width 16.1H, Platelet Count 255, Mean Platelet Volume 9.9, Neutrophils (%) (Auto) 44, Lymphocytes (%) (Auto) 45H, Monocytes (%) (Auto) 10, Eosinophils (%) (Auto) 1, Basophils (%) (Auto) 0, Neutrophils # (Auto) 2.1, Lymphocytes # (Auto) 2.2, Monocytes # (Auto) 0.5, Eosinophils # (Auto) 0.0, Basophils # (Auto) 0.0, Sodium Level 141, Potassium Level 4.7, Chloride Level 109H, Carbon Dioxide Level 26, Anion Gap 6, Blood Urea Nitrogen 3L, Creatinine 0.65, Estimat Glomerular Filtration Rate > 60, BUN/Creatinine Ratio 5, Glucose Level 102, Calcium Level 8.8, Corrected Calcium 9.4, Total Bilirubin 0.5, Aspartate Amino Transf (AST/SGOT) 50H, Alanine Aminotransferase (ALT/SGPT) 56H, Alkaline Phosphatase 56, Total Protein 5.7L, Albumin 3.3 Assessment/Plan Assessment/Plan Assessment/Plan Constipation Viral gastroenteritis Colitis Abdominal/Pelvis X-ray Abdomen and Pelvis CT scan Clinical Quality Measures DVT/VTE Risk/Contraindication: Risk Factor Score Per Nursin RFS Level Per Nursing on Admit: 1=Low/No VTE PPX VIJAY GRAMAJO DO 03/04/192115: Subjective Subjective/Events-last exam Still with nausea and emesis but only one time this afternoon. 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 Ct scan reviewed with her with no acute findings resolving enteritis. Patient understands these findings. She had ct head performed no a cute finding. Patient no new complaints. Denies fever sweats chills shortness of breath or chest pain. Objective Exam General Appearance: No Apparent Distress HEENT: PERRL/EOMI Respiratory: Chest Non Tender, No Accessory Muscle Use, No Respiratory Distress Cardiovascular: Regular Rate, Rhythm Gastrointestinal: soft, other (when distratcted does not seem to have tenderness) Extremity: Non Tender Neurologic/Psychiatric: Alert, Oriented x3 Skin: Normal Color, Warm/Dry Lymphatic: No Adenopathy Assessment/Plan Assessment/Plan Assessment/Plan nausea and emesis diffuse abdominal pain hypokalemia patient without source of her symptoms, we discussed ct results and she understands. would recommend doing egd for further evaluation. she agrees with plan and understands risks and benefits. EGD Tomorrow NPO Supervisory-Addendum Brief Verification & Attestation Participated in pt care: history, MDM, physical Personally performed: exam, history, MDM, supervision of care Care discussed with: Medical Student Procedures: n/a Results interpretation: Verified all documentation Verification and Attestation of Medical Student E/M Service A medical student performed and documented this service in my presence. I reviewed and verified all information documented by the medical student and made modifications to such information, when appropriate. I personally performed the physical exam and medical decision making. Vijay Gramajo, Mar 04, 2019,21:16 EBONY PANDEY STUD Mar 04, 2019 17:47 VIJAY GRAMAJO DO Mar 04, 2019 21:16
--- NOTE | 2019-03-04 18:35 | NUR ---
BP RECHECKED MANUALLY AFTER DOSE OF 5MG NORVASC WAS GIVEN. BP NOTED TO BE 169/135. DR JIMENEZ NOTIFIED 1846 25MG HYDROCHLOROTHIAZIDE GIVEN ORDERED FOR ELEVATED BP.
[2019-03-04] MEDS: HYDROCHLOROTHIAZIDE 25 MG (HCTZ) TAB PO SCH (18:47)
[2019-03-05] VITALS (10 sets, daily range): BP systolic 78–174; BP diastolic 55–135
[2019-03-05] MEDS: fentaNYL INJECTION 100 MCG/2 ML AMP IV PRN ×5 (01:55→16:20)
[2019-03-05] MEDS: NS W/KCL 40 MEQ/L 1,000 ML IV SCH (01:55)
[2019-03-05 05:29] LABS: BUN/CREATININE RATIO 6; CALCIUM 9.4 MG/DL (8.5-10.1); CARBON DIOXIDE 23 MMOL/L (21-32); CHLORIDE 104 MMOL/L (98-107); CREATININE SERUM 0.71 MG/DL (0.60-1.30); GFR ESTIMATED > 60; GLUCOSE 136 MG/DL (70-105); POTASSIUM 5.5 MMOL/L (3.6-5.0); SODIUM 134 MMOL/L (135-145)
[2019-03-05] MEDS ORDERED: NS IV 1000 ML 1,000 ML IV SCH (06:30)
[2019-03-05] MEDS: PROMETHAZINE INJ 25 MG/ML (PHENERGAN) AMP IV PRN (07:50)
[2019-03-05] MEDS: PANTOPRAZOLE 40 MG (PROTONIX) VIAL IV SCH (08:26)
--- NOTE | 2019-03-05 08:52 | NUR ---
PT IS NPO FOR EGD TODAY -- AM MEDS HELD BUT WILL GIVE WHEN PT ABLE TO TAKE PO
[2019-03-05] MEDS ORDERED: amLODIPine 10 MG (NORVASC) TAB PO SCH (09:00)
[2019-03-05] MEDS ORDERED: LACTATED RINGERS 1,000 ML IV ONE (09:04)
[2019-03-05] MEDS ORDERED: LACTATED RINGERS 1,000 ML IV STA (09:10)
[2019-03-05] MEDS ORDERED: HURRICAINE EXT TUBE (BENZOCAINE) XX PRN (09:15)
[2019-03-05] MEDS ORDERED: proPOfol 200 MG/20 ML (DIPRIVAN) VIAL IV ONE (09:24)
[2019-03-05] MEDS ORDERED: MIDAZOLAM 5 MG/5 ML (VERSED) VIAL ONE (09:25)
[2019-03-05] MEDS ORDERED: ESMOLOL 100 MG/10 ML (BREVIBLOC) VIAL ONE (09:25)
--- NOTE | 2019-03-05 09:53 | Progress Note-Post Operative ---
Post-Operative Progess Note Surgeon (s)/Web Production Artist (s) Surgeon PENNY ALMAZAN DO Web Production Artist: na Pre-Operative Diagnosis nausea vomiting abdominal pain Post-Operative Diagnosis gastritis, hiatal hernia Procedure & Operative Findings Date of Procedure 03/05/19 Procedure Performed/Findings egd c biopsies Anesthesia Type per mda Estimated Blood Loss Estimated blood loss (mL): none Specimens/Packing Specimens Removed antrum, body, ge PENNY ALMAZAN DO Mar 05, 2019 09:53
[2019-03-05] MEDS: HYDROCHLOROTHIAZIDE 25 MG (HCTZ) TAB PO SCH (10:23)
[2019-03-05] MEDS: PROPRANOLOL 20 MG (INDERAL) TABLET PO SCH ×2 (10:23→13:20)
[2019-03-05] MEDS: DULoxetine 30 MG (CYMBALTA) CAP PO SCH (10:24)
--- NOTE | 2019-03-05 11:34 | Anesthesia-General Post-Op ---
MAC Patient Condition Mental Status/LOC: Same as Preop Cardiovascular: Satisfactory Nausea/Vomiting: Absent Respiratory: Satisfactory Pain: Controlled Complications: Absent Post Op Complications Complications None Follow Up Care/Instructions Patient Instructions None needed. Anesthesiology Discharge Order Discharge Order Patient is doing well, no complaints, stable vital signs, no apparent adverse anesthesia problems. No complications reported per nursing. TOMASZ THOMAS CRNA Mar 05, 2019 11:34
[2019-03-05] MEDS: SUCRALFATE 1 GM (CARAFATE) TAB PO SCH ×2 (12:28→16:20)
[2019-03-05] MEDS ORDERED: NS IV 1000 ML 1,000 ML IV ONE (12:45)
--- NOTE | 2019-03-05 13:08 | OPERATIVE REPORT ---
DATE OF SERVICE: 03/05/2019 PREOPERATIVE DIAGNOSES: Nausea, vomiting and abdominal pain. POSTOPERATIVE DIAGNOSES: Gastritis, hiatal hernia. PROCEDURE: EGD with biopsies. SURGEON: Penny Gramajo DO ANESTHESIA: Per MDA. ESTIMATED BLOOD LOSS: None. COMPLICATIONS: None. INDICATIONS: The patient is a 43-year-old female with abdominal pain, nausea and vomiting. She understands risks and benefits of procedure and wished to proceed with procedure. Consent was signed in the chart. DESCRIPTION OF PROCEDURE: The patient was taken to the endoscopy suite, placed in left lateral recumbent position. Timeout was performed. Scope was inserted in mouth, down the esophagus, stomach and into the duodenum without difficulty. There were no polyps, masses or ulcerations in the duodenum. Scope was then slowly retracted back where the stomach was further insufflated. Changes suggestive of gastritis were present. Biopsy of the antrum and body were obtained. The scope was retroflexed noting a hiatal hernia. Scope was then continued slowly retracted back and the biopsy of the GE junction was obtained. Scope was then slowly retracted back to completely remove noting no other pathology. The patient tolerated procedure well without any complications. She was taken to recovery room in stable condition. RECOMMENDATIONS: The patient to await biopsy results and we will likely be have on a PPI and Carafate. Job ID: [id number] DocumentID: [id number] Dictated Date: 03/05/2019 10:53:04 Health And Safety Technician Date: 03/05/2019 13:07:45 Dictated By: PENNY GRAMAJO DO
[2019-03-05] MEDS ORDERED: RT-ALBUTEROL SULF 2.5 MG/3 ML PRE-MIX VIAL INH PRN (14:45)
[2019-03-05] MEDS ORDERED: SUCR1TAB PO (15:59)
[2019-03-05] MEDS ORDERED: PROP80TA3 PO (15:59)
[2019-03-05] MEDS ORDERED: PANT40TA3 PO (15:59)
[2019-03-05] MEDS ORDERED: AMLO10TA7 PO (15:59)
--- NOTE | 2019-03-05 16:00 | Discharge Instructions ---
[facility]charge [facility] Discharge Medications New, Converted or Re-Newed RX: Transmitted to Pharmacy New Medications: Pantoprazole Sodium (Pantoprazole Sodium) 40 Mg Tablet.dr 40 MG PO DAILY for 30 Days, #30 TAB 0 Refills Sucralfate (Sucralfate) 1 Gm Tablet 1 GM PO ACHS, #120 TAB 0 Refills Changed Medications: Amlodipine Besylate (Amlodipine Besylate) 10 Mg Tablet 10 MG PO DAILY for 30 Days, #30 TAB 0 Refills (Changed from: Amlodipine Besylate 5 Mg Tablet 5 Mg PO DAILY) Propranolol HCl (Propranolol HCl) 80 Mg Tablet 80 MG PO TID, #90 TAB 0 Refills (Changed from: BID; Refills: ; Removed Instructions) Continued Medications: Dicyclomine HCl (Dicyclomine HCl) 20 Mg Tablet 20 MG PO QID, TAB Duloxetine HCl (Cymbalta) 60 Mg Capsule.dr 60 MG PO DAILY, CAP Ondansetron (Ondansetron Odt) 4 Mg Tab.rapdis 4 MG PO TID PRN for NAUSEA/VOMITING-1ST LINE, TAB Promethazine HCl (Promethazine Tablet) 25 Mg Tablet 25 MG PO Q6H PRN for NAUSEA/VOMITING-2ND LINE, TAB Tizanidine HCl (Tizanidine HCl) 4 Mg Tablet 4 MG PO BID PRN for MUSCLE SPASMS, TAB Tramadol HCl (Tramadol HCl) 50 Mg Tablet 50 MG PO HS PRN for PAIN-MODERATE, TAB Patient Instructions Goal/Follow Up Appt: Follow up with Colton Houser on 03/09 at 2 pm. Return to The Hospital For: Fever, inability to keep down medications Activity & Diet Discharge Diet: Eat Small Frequent Meals, Avoid Fatty Foods Activity as Tolerated: Yes Copy Copies To 1: LISA Beckwith BETHANY N MD Mar 05, 2019 16:00
--- NOTE | 2019-03-05 16:01 | Discharge Summary ---
Discharge Summary Hospital Course Problems/Diagnosis: (1) Elevated liver enzymes Status: Chronic Assessment & Plan: Negative hepatitis panel and normal liver ultrasound in 2017 in clinic. Will repeat acute hepatitis panel due to current symptoms. Hep panel neg, LFTs improving (2) Hypokalemia Status: Resolved Resolution Date/Time: 03/05/19 @ 20:31 Assessment & Plan: Replace and follow. (3) Intractable nausea and vomiting Status: Acute Assessment & Plan: IVF, ondansetron, promethazine. Consult Surgery given that she had significant bowel issues last time. Check CTAP with IV and oral contrast. 03/04 CT showed resolution of previous findings, given persistent vomiting will check CT brain, EGD tomorrow. 03/05 CT brain okay, EGD with gastritis, started on pantoprazole and carafate. Qualifiers: Qualified Codes: R11.2 - Nausea with vomiting, unspecified Hospital Course Date of Admission: Mar 02, 2019 at 23:23 Admission Diagnosis : Family Physician/Provider: Colton Houser APRN Date of Discharge: 03/05/19 Discharge Diagnosis: See problems Hospital Course: See problems Labs and Pending Lab Test: Laboratory Tests 03/05/19 04:40: Sodium Level 134L, Potassium Level 5.5H, Chloride Level 104, Carbon Dioxide Level 23, Anion Gap 7, Blood Urea Nitrogen 4L, Creatinine 0.71, Estimat Glomerular Filtration Rate > 60, BUN/Creatinine Ratio 6, Glucose Level 136H, Calcium Level 9.4 Discharge Meds Active Pantoprazole Sodium 40 Mg Tablet.dr 40 Mg PO DAILY 30 Days Sucralfate 1 Gm Tablet 1 Gm PO ACHS Amlodipine Besylate 10 Mg Tablet 10 Mg PO DAILY 30 Days Propranolol HCl 80 Mg Tablet 80 Mg PO TID Reported Cymbalta (Duloxetine HCl) 60 Mg Capsule.dr 60 Mg PO DAILY Promethazine Tablet (Promethazine HCl) 25 Mg Tablet 25 Mg PO Q6H PRN Ondansetron Odt (Ondansetron) 4 Mg Tab.rapdis 4 Mg PO TID PRN Tramadol HCl 50 Mg Tablet 50 Mg PO HS PRN Tizanidine HCl 4 Mg Tablet 4 Mg PO BID PRN Dicyclomine HCl 20 Mg Tablet 20 Mg PO QID Assessment/Pt DC Instructions See above Discharge Diet: Eat Small Frequent Meals, Avoid Fatty Foods Activity as Tolerated: Yes Discharge Physical Examination Allergies: Coded Allergies: morphine (Verified Allergy, Unknown, CAUSES "REBOUND HEADACHES", 08/20/13) baclofen (Verified Adverse Reaction, Severe, 06/13/15) PATIENT UNAWARE OF REACTION BUT WAS HOSPITALIZED AFTER TAKING MEDICATION AND WAS TOLD IT WAS A REACTION DUE TO THE MEDICATION SHE TOOK. meloxicam (Verified Adverse Reaction, Severe, 06/13/15) PATIENT UNAWARE OF REACTION BUT WAS HOSPITALIZED AFTER TAKING MEDICATION AND WAS TOLD IT WAS A REACTION DUE TO THE MEDICATION SHE TOOK. NSAIDS (Non-Steroidal Anti-Inflamma (Verified Adverse Reaction, Mild, have IBS and avoid NSAIDS, 12/04/12) General Appearance: No Apparent Distress, WD/WN Respiratory: Lungs Clear, Normal Breath Sounds Cardiovascular: Regular Rate, Rhythm, No Murmur Gastrointestinal: Normal Bowel Sounds, Soft, Tenderness Extremity: No Pedal Edema Skin: Normal Color, Warm/Dry Neurologic/Psychiatric: Alert, Normal Mood/Affect Copy Copies To 1: Colton Houser APRN Discharge Summary Date of Admission Mar 02, 2019 at 23:23 Date of Discharge Discharge Date: Mar 05, 2019 Clinical Quality Measures DVT/VTE Risk/Contraindication: Risk Factor Score Per Nursin RFS Level Per Nursing on Admit: 1=Low/No VTE PPX KRAIG JIMENEZ MD Mar 05, 2019 16:01
--- NOTE | 2019-03-05 19:26 | Progress Note - Surgery ---
[facility] 03/05/191925: Subjective Date Seen by a Provider: Mar 05, 2019 Time Seen by a Provider: 07:20 Subjective/Events-last exam Patient was awake but still complains of nausea and vomiting and belly pain. Also complains of being short of breath. States that she has had diarrhea and had used the restroom 6 times throughout the night. Ambulates around the room. Potassium was at 5.5. CT showed no acute findings. EGD showed a gastritis at the pylorus. Review of Systems General: No Chills, No Night Sweats Pulmonary: No Cough; Other (Short of breath) Cardiovascular: No: Chest Pain Gastrointestinal: Nausea, Vomiting, Abdominal Pain Focused Exam Respiratory: Lungs Clear, Normal Breath Sounds, No Accessory Muscle Use, No Respiratory Distress Cardiovascular: Regular Rate, Rhythm, No Gallop, No JVD, No Murmur Skin: normal color, warm/dry Objective Exam Vital Signs Date Time Temp Pulse Resp B/P (MAP) Pulse Ox O2 Delivery O2 Flow Rate FiO2 03/05/19 17:35 37.5 92 20 113/77 96 Room Air 03/05/19 16:55 37.5 03/05/19 16:20 37.5 03/05/19 15:57 37.5 92 20 113/77 (89) 96 Room Air 03/05/19 14:25 36.4 87 96 21 03/05/19 12:23 80/55 (63) 03/05/19 12:17 36.4 87 28 78/57 (64) 96 Room Air 03/05/19 09:51 109 18 100 OxyMask 10 03/05/19 09:50 109 20 100 OxyMask 10 03/05/19 09:45 112 20 98 OxyMask 10 03/05/19 08:00 Room Air 03/05/19 07:32 36.8 105 22 164/120 (135) 93 Room Air 03/05/19 04:26 36.4 101 20 142/108 (119) 93 Room Air 03/04/19 23:55 36.6 89 16 160/100 (120) 93 Room Air 03/04/19 20:00 Room Air 03/04/19 19:36 36.8 101 20 95 Room Air I & O 03/05/19 07:00 Intake Total 880 ml Output Total 1600 ml Balance -720 ml Capillary Refill : Less Than 3 Seconds General Appearance: No Apparent Distress Respiratory: Chest Non Tender, No Accessory Muscle Use, No Respiratory Distress Cardiovascular: Regular Rate, Rhythm, No JVD, No Murmur Gastrointestinal: soft, no organomegaly, no pulsatile mass, other (when distracted does not complain of pain) Neurologic/Psychiatric: Alert, Oriented x3 Skin: Normal Color, Warm/Dry Lymphatic: No Adenopathy Results Lab Laboratory Tests 03/05/19 04:40: Sodium Level 134L, Potassium Level 5.5H, Chloride Level 104, Carbon Dioxide Level 23, Anion Gap 7, Blood Urea Nitrogen 4L, Creatinine 0.71, Estimat Glome rular Filtration Rate > 60, BUN/Creatinine Ratio 6, Glucose Level 136H, Calcium Level 9.4 Assessment/Plan Assessment/Plan Assessment/Plan nausea and emesis diffuse abdominal pain hyperkalemia patient without source of her symptoms, we discussed ct results and she understands. would recommend doing egd for further evaluation. she agrees with plan and understands risks and benefits. EGD Tomorrow NPO Clinical Quality Measures DVT/VTE Risk/Contraindication: Risk Factor Score Per Nursin RFS Level Per Nursing on Admit: 1=Low/No VTE PPX PENNY ALMAZAN DO 03/07/196: Subjective Subjective/Events-last exam see a/p Assessment/Plan Assessment/Plan Assessment/Plan patient with egd this morning see egd dictation okay to nh home from surgical standpoint with outpatient followup disregard student note Supervisory-Addendum Brief Verification & Attestation Participated in pt care: history, MDM, physical Personally performed: exam, history, MDM, supervision of care Care discussed with: Medical Student Procedures: n/a disregard student note, see EGD Dictation EBONY PANDEY MED STUD Mar 05, 2019 19:26 PENNY ALMAZAN DO Mar 07, 2019 19:26
== END 2019-03-05 15:56 | disposition home or self-care (01) ==
LOC: EDUNIT# 19:40 → ER 19:41 → 4TH 22:30 → UNDOADMOB 22:30 → 4TH 23:23 → SDC 23:23 → UNDODISOB 03-05 17:35
PROVIDERS: ATTEND Family Medicine
DX: K52.9 Noninfective gastroenteritis and colitis, unspecified (principal); K31.89 Other diseases of stomach and duodenum; K22.9 Disease of esophagus, unspecified; K44.9 Diaphragmatic hernia without obstruction or gangrene; G43.909 Migraine, unspecified, not intractable, without status migrainosus; G40.909 Epilepsy, unspecified, not intractable, without status epilepticus; G89.29 Other chronic pain; M54.9 Dorsalgia, unspecified; E87.6 Hypokalemia; F12.90 Cannabis use, unspecified, uncomplicated; F41.8 Other specified anxiety disorders; Z88.5 Allergy status to narcotic agent; Z88.8 Allergy status to other drugs, medicaments and biological substances; Z79.899 Other long term (current) drug therapy; Z90.710 Acquired absence of both cervix and uterus; Z98.51 Tubal ligation status; Z83.3 Family history of diabetes mellitus; Z80.8 Family history of malignant neoplasm of other organs or systems
CPT/HCPCS: 36415; 70450; 74022; 74177; 80048; 80053; 80074; 83690; 84443; 85025; 86141; 88305; 93005; 96361; 96365; 96375; 96376; G0378

== ENCOUNTER 2019-03-10 21:50 | Emergency (ER) | payer SELFPAY ==
[~2019-03-10] VITALS: Ht 162 cm; Wt 74.0 kg
[~2019-03-10 21:50] MED LIST changes: +AMLO10TA7 PO; +DULO60CA6 PO; +PANT40TA3 PO; +SUCR1TAB PO
[2019-03-10] MEDS ORDERED: PROM25TA14 PO (22:56)
--- NOTE | 2019-03-10 22:56 | ED Abdominal Pain ---
General Stated Complaint: N/V Source of Information: Patient Exam Limitations: No Limitations History of Present Illness Date Seen by Provider: Mar 10, 2019 Time Seen by Provider: 22:51 Initial Comments 43-year-old female who presents to the emergency room with complaints of nausea and vomiting that started around 1700 today she also reports she did have one episode of diarrhea. She has chronic nausea and vomiting but reports that she has had family that have been sick with gastroenteritis in the house and believes she has viral gastroenteritis. She requested an IM injection of Phenergan and reports that this usually helps her nausea and vomiting. Timing/Duration: 4-6 Hours Associated Symptoms: Nausea/Vomiting Allergies and Home Medications Allergies Coded Allergies: morphine (Verified Allergy, Unknown, CAUSES "REBOUND HEADACHES", 08/20/13) baclofen (Verified Adverse Reaction, Severe, 06/13/15) PATIENT UNAWARE OF REACTION BUT WAS HOSPITALIZED AFTER TAKING MEDICATION AND WAS TOLD IT WAS A REACTION DUE TO THE MEDICATION SHE TOOK. meloxicam (Verified Adverse Reaction, Severe, 06/13/15) PATIENT UNAWARE OF REACTION BUT WAS HOSPITALIZED AFTER TAKING MEDICATION AND WAS TOLD IT WAS A REACTION DUE TO THE MEDICATION SHE TOOK. NSAIDS (Non-Steroidal Anti-Inflamma (Verified Adverse Reaction, Mild, have IBS and avoid NSAIDS, 12/04/12) Home Medications Amlodipine Besylate 10 Mg Tablet, 10 MG PO DAILY Prescribed by: KRAIG JIMENEZ on 03/05/191558 Dicyclomine HCl 20 Mg Tablet, 20 MG PO QID, (Reported) Duloxetine HCl 60 Mg Capsule.dr, 60 MG PO DAILY, (Reported) Ondansetron 4 Mg Tab.rapdis, 4 MG PO TID PRN for NAUSEA/VOMITING-1ST LINE, (Reported) Pantoprazole Sodium 40 Mg Tablet.dr, 40 MG PO DAILY Prescribed by: KRAIG JIMENEZ on 03/05/191558 Promethazine HCl 25 Mg Tablet, 25 MG PO Q6H PRN for NAUSEA/VOMITING-2ND LINE, (Reported) Propranolol HCl 80 Mg Tablet, 80 MG PO TID Prescribed by: KRAIG JIMENEZ on 03/05/191558 Sucralfate 1 Gm Tablet, 1 GM PO ACHS Prescribed by: KRAIG JIMENEZ on 03/05/191558 Tizanidine HCl 4 Mg Tablet, 4 MG PO BID PRN for MUSCLE SPASMS, (Reported) Tramadol HCl 50 Mg Tablet, 50 MG PO HS PRN for PAIN-MODERATE, (Reported) Patient Home Medication List Home Medication List Reviewed: Yes Review of Systems Review of Systems Constitutional: see HPI, chills; No fever All Other Systems Reviewed Negative Unless Noted: Yes Past Hfqrduj-Jhqbwo-Apbebp Hx Past Med/Social Hx: Reviewed Nursing Past Med/Soc Hx Patient Social History Drug of Choice: Marijuana; most recent use 5 mo ago 2nd Hand Smoke Exposure: No Recent Foreign Travel: No Contact w/Someone Who Travel: No Recent Hopitalizations: No Immunizations Up To Date Tetanus Booster (TDap): More than 5yrs PED Vaccines UTD: No Date of Pneumonia Vaccine: Mar 03, 2014 Date of Influenza Vaccine: Mar 03, 2015 Seasonal Allergies Seasonal Allergies: No Past Medical History Surgeries: Yes Bladder Surgery, Gallbladder, 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, Oophorectomy, Tubal Ligation Respiratory: Yes Asthma Currently Using CPAP: No Currently Using BIPAP: No Cardiac: No Neurological: Yes ("SEIZURE WITH LOW BP" PER PT) Headaches /Migraines, Seizure Disorder 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 Disorders: Yes (HYST 2005--NO PHYSICIAN DOCUMENTATION OF ANY KIND OF CANCER) 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 Disorders: Denies 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 History: 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 Sexually Transmitted Disease: Yes (HPV) HIV/AIDS: No Genitourinary: Yes Bladder Infection Gastrointestinal: Yes Irritable Bowel Musculoskeletal: Yes Chronic Back Pain Endocrine: No HEENT: Yes (POOR DENTITION) Loss of Vision: Denies Cancer: No (NO PHYSICIAN DOCUMENTATION / VERIFICATION OF ANY KIND OF CANCER) Cervical, Colon Psychosocial: Yes Anxiety, Depression Integumentary: No Blood Disorders: No Adverse Reaction/Blood Tranf: No Family Medical History Reviewed Nursing Family Hx Diabetes mellitus 19 FATHER FHx: brain tumor 19 MOTHER HPV infection G8 SISTER No Family History of: AIDS Abdominal aortic aneurysm Madi's disease Alcoholism Alzheimer's disease Aphasia Arthritis Asthma Cancer of mouth Cardiovascular disease Cataracts Colon cancer Completed stroke Congenital disease Congenital heart disease Coronary thrombosis Cystic fibrosis Deafness or hearing loss Dementia Drug abuse Dysphasia Fibrocystic disease of breast Gastroenteritis Glaucoma Headache disorder Hypercholesterolemia Hypertension Infertility Kidney disease Myocardial infarction Neoplasm Not obtainable due to adoption Osteoporosis Parkinson's disease Prostate cancer Psychosocial problem Respiratory disorder Seizure disorder Severe allergy Thyroid disease Tuberculosis Visual disorder Heart Disease, Hypertension, Other Conditions/Hx Physical Exam Vital Signs Capillary Refill : Height/Weight/BMI Height: 5'6.00" Weight: 203lbs. 6.4oz. 92.317220cy; 28.65 BMI Method:Stated General Appearance: WD/WN, no apparent distress Respiratory: chest non-tender, lungs clear, normal breath sounds, no respiratory distress, no accessory muscle use Cardiovascular: normal peripheral pulses, regular rate, rhythm, no edema, no gallop, no JVD, no murmur Gastrointestinal: normal bowel sounds, non tender, soft, no organomegaly, no pulsatile mass Neurologic/Psychiatric: alert, normal mood/affect, oriented x 3 Skin: normal color, warm/dry Progress/Results/Core Measures Results/Orders My Orders Orders - SADAF WALSH Promethazine Injection (Phenergan Injec (03/10/19 23:00) Progress Progress Note : Time: 22:53 Progress Note It was discussed with the patient the need for a workup but she declines IV, blood work, urine, and possible imaging at this time. She reports that she will come back if this gets worse. She reports that she just needs something for her nausea and vomiting and that Phenergan works. She agrees with plan of care and return precautions were given. Departure Impression Primary Impression: Nausea vomiting and diarrhea Disposition: HOME, SELF-CARE Condition: Stable/Unchanged Departure-Patient Inst. Decision time for Depature: 22:54 Referrals: KARINA COOMBS MD (PCP/Family) Primary Care Physician Patient Instructions: Nausea and Vomiting, Adult (DC) Add. Discharge Instructions: Take medication as directed. Follow-up with your primary care provider within 1 week for recheck. Return back to the emergency room for worsening symptoms, pain, worsening nausea and vomiting, or any other concerns as needed. Scripts Promethazine HCl (Promethazine Tablet) 25 Mg Tablet 25 MG PO Q6H PRN for NAUSEA/VOMITING, #14 TAB Prov: SADAF WALSH 03/10/19 SADAF WALSH Mar 10, 2019 22:56
[2019-03-10] MEDS ORDERED: PROMETHAZINE INJ 25 MG/ML (PHENERGAN) AMP IM/IV ONE (23:00)
[2019-03-11 00:36] VITALS: BP 147/95
== END 2019-03-10 23:18 | disposition home or self-care (01) ==
LOC: EDUNIT# 21:50 → ER 21:51
DX: R19.7 Diarrhea, unspecified (principal); R11.2 Nausea with vomiting, unspecified; J45.909 Unspecified asthma, uncomplicated; G43.909 Migraine, unspecified, not intractable, without status migrainosus; G40.909 Epilepsy, unspecified, not intractable, without status epilepticus; K58.9 Irritable bowel syndrome, unspecified; F32.9 Major depressive disorder, single episode, unspecified; F41.9 Anxiety disorder, unspecified; Z90.710 Acquired absence of both cervix and uterus; Z98.51 Tubal ligation status; Z88.5 Allergy status to narcotic agent; Z88.8 Allergy status to other drugs, medicaments and biological substances; Z88.6 Allergy status to analgesic agent; Z85.41 Personal history of malignant neoplasm of cervix uteri; Z85.038 Personal history of other malignant neoplasm of large intestine
CPT/HCPCS: 96372; 99284

== ENCOUNTER 2019-03-24 08:42 | Emergency (ER) | payer SELFPAY ==
[~2019-03-24] VITALS: Ht 167 cm; Wt 75.5 kg
[2019-03-24] MEDS ORDERED: ONDANSETRON 4 MG/2 ML (SDV) Z0FRAN ONE (08:59)
[2019-03-24] MEDS ORDERED: ONDANSETRON 4 MG/2 ML (SDV) Z0FRAN IVP ONE (09:15)
[2019-03-24 09:25] LABS: BASOPHILS % (AUTO) 0 % (0-10); EOSINOPHILS % (AUTO) 0 % (0-10); HEMATOCRIT 42 % (35-52); HEMOGLOBIN 13.9 G/DL (11.5-16.0); LYMPHOCYTES # (AUTO) 1.2 X 10^3 (1.0-4.0); LYMPHOCYTES % (AUTO) 9 % (12-44); MEAN CORPUSCULAR HEMOGLOBIN 29 PG (25-34); MEAN CORPUSCULAR HGB CONC 33 G/DL (32-36); MEAN CORPUSCULAR VOLUME 87 FL (80-99); MEAN PLATELET VOLUME 9.7 FL (7.4-10.4); MONOCYTES # (AUTO) 1.1 X 10^3 (0.0-1.0); MONOCYTES % (AUTO) 9 % (0-12); NEUTROPHILS # (AUTO) 10.1 X 10^3 (1.8-7.8); NEUTROPHILS % (AUTO) 82 % (42-75); PLATELET COUNT 487 10^3/uL (130-400); RED CELL DISTRIBUTION WIDTH 15.1 % (10.0-14.5); WHITE BLOOD COUNT 12.4 10^3/uL (4.3-11.0)
--- NOTE | 2019-03-24 09:26 | ED Abdominal Pain ---
General Chief Complaint: Abdominal/GI Problems Stated Complaint: VOMITING Nursing Triage Note: ARRIVED VIA AMB TO ROOM 07. COMPLAINS OF VOMTING SINCE LAST NIGHT. PT VOMITING LARGE AMOUNT OF FLUIDS ET STATES SHE HAS BEEN TRYING TO DRINK. Sepsis Screen: No Definite Risk Source of Information: Patient Exam Limitations: No Limitations History of Present Illness Date Seen by Provider: Mar 24, 2019 Time Seen by Provider: 09:22 Initial Comments This 43-year-old white female presents with persistent nausea and vomiting that began last night. The patient denies associated diarrhea headache, dysuria, fever or chill, family members with a similar illness, use of new medication or discontinuation of medication, hematemesis, black or tarry stools, history of peptic ulcer disease or cholecystitis. Patient has had 2 similar episodes in the past requiring hospitalization and EGD evaluation with Dr. Gramajo. No explanation has been forthcoming for her episodes. Patient denies marijuana. Patient relates that the phenothiazines have been effective in past for her persistent nausea. Allergies and Home Medications Allergies Coded Allergies: morphine (Verified Allergy, Unknown, CAUSES "REBOUND HEADACHES", 08/20/13) baclofen (Verified Adverse Reaction, Severe, 06/13/15) PATIENT UNAWARE OF REACTION BUT WAS HOSPITALIZED AFTER TAKING MEDICATION AND WAS TOLD IT WAS A REACTION DUE TO THE MEDICATION SHE TOOK. meloxicam (Verified Adverse Reaction, Severe, 06/13/15) PATIENT UNAWARE OF REACTION BUT WAS HOSPITALIZED AFTER TAKING MEDICATION AND WAS TOLD IT WAS A REACTION DUE TO THE MEDICATION SHE TOOK. NSAIDS (Non-Steroidal Anti-Inflamma (Verified Adverse Reaction, Mild, have IBS and avoid NSAIDS, 12/04/12) Home Medications Amlodipine Besylate 10 Mg Tablet, 10 MG PO DAILY Prescribed by: KRAIG JIMENEZ on 03/05/191558 Dicyclomine HCl 20 Mg Tablet, 20 MG PO QID, (Reported) Duloxetine HCl 60 Mg Capsule.dr, 60 MG PO DAILY, (Reported) Propranolol HCl 80 Mg Tablet, 80 MG PO TID Prescribed by: KRAIG JIMENEZ on 03/05/191558 Tizanidine HCl 4 Mg Tablet, 4 MG PO BID PRN for MUSCLE SPASMS, (Reported) Patient Home Medication List Home Medication List Reviewed: Yes Review of Systems Review of Systems Constitutional: No chills, No fever EENTM: No Blurred Vision Respiratory: Denies Cough Cardiovascular: Denies Chest Pain Gastrointestinal: Abdominal Pain (diffuse and poorly localized after repeated vomiting); Denies Constipated, Denies Diarrhea; Nausea, Vomiting Genitourinary: Denies Burning, Denies Frequency Musculoskeletal: No back pain Skin: No change in color, No rash Psychiatric/Neurological: No Symptoms Reported Endocrine: No Symptoms Reported Hematologic/Lymphatic: No Symptoms Reported Past Fdpmrtp-Driauy-Nspkwa Hx Past Med/Social Hx: Reviewed Nursing Past Med/Soc Hx Patient Social History Alcohol Use: Denies Use Recreational Drug Use: No Drug of Choice: Marijuana; most recent use 5 mo ago 2nd Hand Smoke Exposure: No Recent Foreign Travel: No Contact w/Someone Who Travel: No Recent Infectious Disease Expo: No Recent Hopitalizations: No Immunizations Up To Date Tetanus Booster (TDap): More than 5yrs PED Vaccines UTD: No Date of Pneumonia Vaccine: Mar 03, 2014 Date of Influenza Vaccine: Mar 03, 2015 Seasonal Allergies Seasonal Allergies: No Past Medical History Surgeries: Yes Bladder Surgery, Gallbladder, 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, Oophorectomy, Tubal Ligation Respiratory: Yes Asthma Currently Using CPAP: No Currently Using BIPAP: No Cardiac: No Neurological: Yes ("SEIZURE WITH LOW BP" PER PT) Headaches /Migraines, Seizure Disorder 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 Disorders: Yes (HYST 2005--NO PHYSICIAN DOCUMENTATION OF ANY KIND OF CANCER) 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 Disorders: 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 Sexually Transmitted Disease: Yes (HPV) HIV/AIDS: No Genitourinary: Yes Bladder Infection Gastrointestinal: Yes Irritable Bowel Musculoskeletal: Yes Chronic Back Pain Endocrine: No HEENT: Yes (POOR DENTITION) Loss of Vision: Denies Cancer: No (NO PHYSICIAN DOCUMENTATION / VERIFICATION OF ANY KIND OF CANCER) Cervical, Colon Psychosocial: Yes Anxiety, Depression Integumentary: No Blood Disorders: No Adverse Reaction/Blood Tranf: No Family Medical History Diabetes mellitus 19 FATHER FHx: brain tumor 19 MOTHER HPV infection G8 SISTER No Family History of: AIDS Abdominal aortic aneurysm Houston's disease Alcoholism Alzheimer's disease Aphasia Arthritis Asthma Cancer of mouth Cardiovascular disease Cataracts Colon cancer Completed stroke Congenital disease Congenital heart disease Coronary thrombosis Cystic fibrosis Deafness or hearing loss Dementia Drug abuse Dysphasia Fibrocystic disease of breast Gastroenteritis Glaucoma Headache disorder Hypercholesterolemia Hypertension Infertility Kidney disease Myocardial infarction Neoplasm Not obtainable due to adoption Osteoporosis Parkinson's disease Prostate cancer Psychosocial problem Respiratory disorder Seizure disorder Severe allergy Thyroid disease Tuberculosis Visual disorder Heart Disease, Hypertension, Other Conditions/Hx Physical Exam Vital Signs Vital Signs - First Documented 03/24/19 08:55 Temp 37.1 Pulse 99 Resp 16 B/P (MAP) 168/88 (114) Pulse Ox 94 O2 Delivery Room Air Capillary Refill : Less Than 3 Seconds Height/Weight/BMI Height: 5'6.00" Weight: 203lbs. 6.4oz. 92.106351nz; 27.00 BMI Method:Stated General Appearance: WD/WN, mild distress HEENT: normal ENT inspection Neck: supple, normal inspection Respiratory: lungs clear Cardiovascular: regular rate, rhythm Gastrointestinal: normal bowel sounds, soft, tenderness (mild diffuse tenderness is noted on palpation of the abdomen) Extremities: normal range of motion, normal inspection Back: normal inspection Neurologic/Psychiatric: no motor/sensory deficits, alert Skin: normal color Progress/Results/Core Measures Results/Orders Lab Results Laboratory Tests Test 03/24/19 09:05 Range/Units White Blood Count 12.4 H 4.3-11.0 10^3/uL Red Blood Count 4.78 4.35-5.85 10^6/uL Hemoglobin 13.9 11.5-16.0 G/DL Hematocrit 42 35-52 % Mean Corpuscular Volume 87 80-99 FL Mean Corpuscular Hemoglobin 29 25-34 PG Mean Corpuscular Hemoglobin Concent 33 32-36 G/DL Red Cell Distribution Width 15.1 H 10.0-14.5 % Platelet Count 487 H 130-400 10^3/uL Mean Platelet Volume 9.7 7.4-10.4 FL Neutrophils (%) (Auto) 82 H 42-75 % Lymphocytes (%) (Auto) 9 L 12-44 % Monocytes (%) (Auto) 9 0-12 % Eosinophils (%) (Auto) 0 0-10 % Basophils (%) (Auto) 0 0-10 % Neutrophils # (Auto) 10.1 H 1.8-7.8 X 10^3 Lymphocytes # (Auto) 1.2 1.0-4.0 X 10^3 Monocytes # (Auto) 1.1 H 0.0-1.0 X 10^3 Eosinophils # (Auto) 0.0 0.0-0.3 10^3/uL Basophils # (Auto) 0.0 0.0-0.1 10^3/uL Sodium Level 142 135-145 MMOL/L Potassium Level 3.3 L 3.6-5.0 MMOL/L Chloride Level 96 L 98-107 MMOL/L Carbon Dioxide Level 25 21-32 MMOL/L Anion Gap 21 H 5-14 MMOL/L Blood Urea Nitrogen 13 7-18 MG/DL Creatinine 1.04 0.60-1.30 MG/DL Estimat Glomerular Filtration Rate 58 BUN/Creatinine Ratio 13 Glucose Level 144 H 70-105 MG/DL Calcium Level 11.0 H 8.5-10.1 MG/DL Corrected Calcium 10.7 H 8.5-10.1 MG/DL Total Bilirubin 0.6 0.1-1.0 MG/DL Aspartate Amino Transf (AST/SGOT) 21 5-34 U/L Alanine Aminotransferase (ALT/SGPT) 18 0-55 U/L Alkaline Phosphatase 106 40-136 U/L Total Protein 8.7 H 6.4-8.2 GM/DL Albumin 4.4 3.2-4.5 GM/DL Lipase 33 8-78 U/L My Orders Orders - DUNG PERALTA MD Ondansetron Injection (Zofran Injectio (03/24/19 08:59) Ondansetron Injection (Zofran Injectio (03/24/19 09:15) Cbc With Automated Diff (03/24/19 09:19) Comprehensive Metabolic Panel (03/24/19 09:19) Lipase (03/24/19 09:19) Ua Culture If Indicated (03/24/19 09:19) Drug Screen Stat (Urine) (03/24/19 09:19) Ns Iv 1000 Ml (Sodium Chloride 0.9%) (03/24/19 09:30) Promethazine Injection (Phenergan Injec (03/24/19 09:30) Diphenhydramine Injection (Benadryl Inje (03/24/19 09:30) Fentanyl Injection (Sublimaze Injection (03/24/19 11:00) Medications Given in ED Current Medications Medications Dose Ordered Sig/Judi Route Start Time Stop Time Status Last Admin Dose Admin Diphenhydramine HCl 25 mg ONCE ONCE IVP 03/24/19 09:30 03/24/19 09:31 DC 03/24/19 09:43 25 MG Ondansetron HCl 4 mg ONCE ONCE IVP 03/24/19 09:15 03/24/19 09:16 DC 03/24/19 09:05 4 MG Promethazine HCl 25 mg ONCE ONCE IVP 03/24/19 09:30 03/24/19 09:31 DC 03/24/19 09:42 25 MG Vital Signs/I&O 03/24/19 08:55 Temp 37.1 Pulse 99 Resp 16 B/P (MAP) 168/88 (114) Pulse Ox 94 O2 Delivery Room Air Blood Pressure Mean: 114 Progress Progress Note : Time: 10:55 Progress Note The patient was given Zofran 4 mg IV initially with no remarkable improvement in her nausea. She suffers received Benadryl and Phenergan with significant improvement in her vomiting. The patient no further vomiting while in the emergency department. He was given 50 g of fentanyl IV for her abdominal pain. Patient's CBC, complete metabolic panel, and lipase were all normal. I reassured the patient. I asked that she follow-up closely with Dr. Gramajo by calling the office today. I asked that she return if she any further problems or questions. Departure Impression Primary Impression: Nausea & vomiting Qualified Codes: R11.2 - Nausea with vomiting, unspecified Disposition: HOME, SELF-CARE Condition: Improved Departure-Patient Inst. Decision time for Depature: 10:57 Referrals: PENNY GRAMAJO CHAD C MD (PCP/Family) Primary Care Physician Patient Instructions: Nausea and Vomiting, Adult (DC) Add. Discharge Instructions: Clear liquids today. Phenergan for nausea as needed. Vicodin for pain. Close follow-up with Dr. Gramajo. Return if any problems or questions. All discharge instructions reviewed with patient and/or family. Voiced understanding. Scripts Hydrocodone/Acetaminophen (Vicodin 5-300 mg Tablet) 1 Each Tablet 1-2 EACH PO Q6H PRN for PAIN-MODERATE MDD 10 for 7 Days, #20 TAB Prov: DUNG PERALTA MD 03/24/19 Promethazine HCl (Promethazine Tablet) 25 Mg Tablet 25 MG PO Q6H PRN for NAUSEA/VOMITING, #10 TAB Prov: DUNG PERALTA MD 03/24/19 DUNG PERALTA MD Mar 24, 2019 09:26
[2019-03-24] MEDS ORDERED: NS IV 1000 ML 1,000 ML IV SCH (09:30)
[2019-03-24] MEDS ORDERED: diphenhydrAMINE 50 MG/ML INJ (BENADRYL) IVP ONE (09:30)
[2019-03-24] MEDS ORDERED: PROMETHAZINE INJ 25 MG/ML (PHENERGAN) AMP IVP ONE (09:30)
[2019-03-24 09:38] LABS: ALBUMIN 4.4 GM/DL (3.2-4.5); BILIRUBIN,TOTAL 0.6 MG/DL (0.1-1.0); CREATININE SERUM 1.04 MG/DL (0.60-1.30); POTASSIUM 3.3 MMOL/L (3.6-5.0); TOTAL PROTEIN 8.7 GM/DL (6.4-8.2)
--- NOTE | 2019-03-24 10:34 | NUR ---
NOTIFIED PT WAS WANTING SOMETHING FOR ABD PAIN.
[2019-03-24] MEDS ORDERED: PROM25TA14 PO (11:00)
[2019-03-24] MEDS ORDERED: HYDR-3455 PO (11:00)
[2019-03-24] MEDS ORDERED: fentaNYL INJECTION 100 MCG/2 ML AMP IVP ONE (11:00)
--- NOTE | 2019-03-24 11:04 | NUR ---
PT UP TO BATHROOM.
[2019-03-24 11:13] VITALS: BP 174/101
--- NOTE | 2019-03-24 11:13 | NUR ---
PT STATES HER BP OF 174/101 IS NORMAL SINCE SHE HAS NOT BEEN ABLE TO KEEP HER BP MED DOWN. DR NOTIFIED.
== END 2019-03-24 11:13 | disposition home or self-care (01) ==
LOC: EDUNIT# 08:42 → ER 08:43
DX: R11.2 Nausea with vomiting, unspecified (principal); J45.909 Unspecified asthma, uncomplicated; G40.909 Epilepsy, unspecified, not intractable, without status epilepticus; G43.909 Migraine, unspecified, not intractable, without status migrainosus; F41.9 Anxiety disorder, unspecified; F32.9 Major depressive disorder, single episode, unspecified; K58.9 Irritable bowel syndrome, unspecified; Z85.038 Personal history of other malignant neoplasm of large intestine; Z85.41 Personal history of malignant neoplasm of cervix uteri; Z90.710 Acquired absence of both cervix and uterus; Z88.5 Allergy status to narcotic agent; Z88.6 Allergy status to analgesic agent; Z88.8 Allergy status to other drugs, medicaments and biological substances; Z98.51 Tubal ligation status
CPT/HCPCS: 36415; 80053; 83690; 85025

== ENCOUNTER 2019-10-20 04:32 | Emergency (ER) | payer SELFPAY ==
[~2019-10-20] VITALS: Ht 160 cm; Wt 75.5 kg
[~2019-10-20 04:32] MED LIST changes: -ACET-2469 PO; +ACET-2715 PO; +HYDR-3455 PO
[2019-10-20] MEDS ORDERED: LACTATED RINGERS 1,000 ML IV STA (04:46)
[2019-10-20] MEDS ORDERED: fentaNYL INJECTION 100 MCG/2 ML AMP IVP STA (04:46)
[2019-10-20] MEDS ORDERED: PROMETHAZINE INJ 25 MG/ML (PHENERGAN) AMP IVP STA (04:46)
[2019-10-20 04:55] LABS: BASOPHILS % (AUTO) 0 % (0-10); EOSINOPHILS % (AUTO) 0 % (0-10); HEMATOCRIT 47 % (35-52); HEMOGLOBIN 15.4 G/DL (11.5-16.0); LYMPHOCYTES # (AUTO) 2.3 X 10^3 (1.0-4.0); LYMPHOCYTES % (AUTO) 18 % (12-44); MEAN CORPUSCULAR HEMOGLOBIN 28 PG (25-34); MEAN CORPUSCULAR HGB CONC 33 G/DL (32-36); MEAN CORPUSCULAR VOLUME 86 FL (80-99); MEAN PLATELET VOLUME 9.6 FL (7.4-10.4); MONOCYTES # (AUTO) 1.2 X 10^3 (0.0-1.0); MONOCYTES % (AUTO) 9 % (0-12); NEUTROPHILS # (AUTO) 9.3 X 10^3 (1.8-7.8); NEUTROPHILS % (AUTO) 73 % (42-75); PLATELET COUNT 457 10^3/uL (130-400); RED CELL DISTRIBUTION WIDTH 16.3 % (10.0-14.5); WHITE BLOOD COUNT 12.8 10^3/uL (4.3-11.0)
[2019-10-20 05:01] LABS: ALBUMIN 5.5 GM/DL (3.2-4.5); CHLORIDE 92 MMOL/L (98-107); POTASSIUM 3.6 MMOL/L (3.6-5.0); SODIUM 139 MMOL/L (135-145)
[2019-10-20 05:02] LABS: CALCIUM 11.2 MG/DL (8.5-10.1)
[2019-10-20 05:03] LABS: GLUCOSE 182 MG/DL (70-105); TOTAL PROTEIN 9.6 GM/DL (6.4-8.2)
[2019-10-20 05:04] LABS: CARBON DIOXIDE 25 MMOL/L (21-32)
[2019-10-20 05:05] LABS: BILIRUBIN,TOTAL 0.8 MG/DL (0.1-1.0)
[2019-10-20 05:07] LABS: ALKALINE PHOSPHATASE 98 U/L (40-136); GFR ESTIMATED 41
--- NOTE | 2019-10-20 05:07 | ED Abdominal Pain ---
General Chief Complaint: Abdominal/GI Problems Stated Complaint: VOMITING,ABD PAIN Source of Information: Patient Exam Limitations: No Limitations History of Present Illness Date Seen by Provider: October 20, 2019 Time Seen by Provider: 04:42 Initial Comments Here with report of nausea, vomiting and central abdominal pain since tonight. S he has tried drinking water and that it's not helped. She has had multiple episodes of this in the past and Phenergan usually works. States pain is 8 out of 10. Denies diarrhea. Denies fever, chills, upper respiratory symptoms, breathing problems or cough. Admits to smoking marijuana occasionally and said last use was 2 weeks ago. Does have previous cholecystectomy and hysterectomy. Multiple visits for same. Timing/Duration: 4-6 Hours Severity/Quality: Moderate, Aching, Cramping Location: Epigastric, Other (central abdomen) Radiation: Other (laterally both sides) Activities at Onset: None Modifying Factors: Worsens With Eating Associated Symptoms: No Back Pain, No Chest Pain, No Fever/Chills; Nausea/Vomiting; No Shortness of Air, No Swelling/Mass in Abdomen, No Weakness Allergies and Home Medications Allergies Coded Allergies: morphine (Verified Allergy, Unknown, CAUSES "REBOUND HEADACHES", 08/20/13) baclofen (Verified Adverse Reaction, Severe, 06/13/15) PATIENT UNAWARE OF REACTION BUT WAS HOSPITALIZED AFTER TAKING MEDICATION AND WAS TOLD IT WAS A REACTION DUE TO THE MEDICATION SHE TOOK. meloxicam (Verified Adverse Reaction, Severe, 06/13/15) PATIENT UNAWARE OF REACTION BUT WAS HOSPITALIZED AFTER TAKING MEDICATION AND WAS TOLD IT WAS A REACTION DUE TO THE MEDICATION SHE TOOK. NSAIDS (Non-Steroidal Anti-Inflamma (Verified Adverse Reaction, Mild, have IBS and avoid NSAIDS, 12/04/12) Home Medications Amlodipine Besylate 10 Mg Tablet, 10 MG PO DAILY Prescribed by: KRAIG JIMENEZ on 03/05/19 1559 Dicyclomine HCl 20 Mg Tablet, 20 MG PO QID, (Reported) Duloxetine HCl 60 Mg Capsule.dr, 60 MG PO DAILY, (Reported) Hydrocodone/Acetaminophen 1 Each Tablet, 1-2 EACH PO Q6H PRN for PAIN-MODERATE Prescribed by: DUNG PERALTA MD on 03/24/19 1100 Promethazine HCl 25 Mg Tablet, 25 MG PO Q6H PRN for NAUSEA/VOMITING Prescribed by: DUNG PERALTA MD on 03/24/19 1100 Propranolol HCl 80 Mg Tablet, 80 MG PO TID Prescribed by: KRAIG JIMENEZ on 03/05/19 1559 Tizanidine HCl 4 Mg Tablet, 4 MG PO BID PRN for MUSCLE SPASMS, (Reported) Patient Home Medication List Home Medication List Reviewed: Yes Review of Systems Review of Systems Constitutional: see HPI; No chills, No fever EENTM: No Symptoms Reported Respiratory: No Symptoms Reported Cardiovascular: No Symptoms Reported Gastrointestinal: See HPI, Abdominal Pain, Nausea, Vomiting Genitourinary: No Symptoms Reported Musculoskeletal: no symptoms reported Skin: no symptoms reported All Other Systems Reviewed Negative Unless Noted: Yes Past Oyjsvqj-Ojjeql-Qrqcwe Hx Past Med/Social Hx: Reviewed Nursing Past Med/Soc Hx Patient Social History Alcohol Use: Denies Use Recreational Drug Use: Yes Drug of Choice: Marijuana; most recent use 5 mo ago 2nd Hand Smoke Exposure: No Recent Foreign Travel: No Contact w/Someone Who Travel: No Recent Hopitalizations: No Immunizations Up To Date Tetanus Booster (TDap): More than 5yrs PED Vaccines UTD: No Date of Pneumonia Vaccine: Mar 03, 2014 Date of Influenza Vaccine: Mar 03, 2015 Seasonal Allergies Seasonal Allergies: No Past Medical History Surgeries: Yes Bladder Surgery, Gallbladder, 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, Oophorectomy, Tubal Ligation Respiratory: Yes Asthma Currently Using CPAP: No Currently Using BIPAP: No Cardiac: No Neurological: Yes ("SEIZURE WITH LOW BP" PER PT) Headaches /Migraines, Seizure Disorder 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 Disorders: Yes (2005--NO PHYSICIAN DOCUMENTATION OF ANY KIND OF CANCER) 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 Sexually Transmitted Disease: Yes (HPV) HIV/AIDS: No Genitourinary: Yes Bladder Infection Gastrointestinal: Yes Irritable Bowel Musculoskeletal: Yes Chronic Back Pain Endocrine: No HEENT: Yes (POOR DENTITION) Loss of Vision: Denies Cancer: No (NO PHYSICIAN DOCUMENTATION / VERIFICATION OF ANY KIND OF CANCER) Cervical, Colon Psychosocial: Yes Anxiety, Depression Integumentary: No Blood Disorders: No Adverse Reaction/Blood Tranf: No Family Medical History Reviewed Nursing Family Hx Diabetes mellitus 19 FATHER FHx: brain tumor 19 MOTHER HPV infection G8 SISTER Heart Disease, Hypertension, Other Conditions/Hx Physical Exam Vital Signs Vital Signs - First Documented 10/20/19 04:38 Temp 36.9 Pulse 106 Resp 20 B/P (MAP) 163/135 (144) Pulse Ox 100 O2 Delivery Room Air Capillary Refill : Height/Weight/BMI Height: 5'6.00" Weight: 203lbs. 6.4oz. 92.669553zw; 27.00 BMI Method:Stated General Appearance: WD/WN, moderate distress HEENT: PERRL/EOMI, pharynx normal, other (very poor dentition overall) Neck: full range of motion, supple Respiratory: lungs clear, normal breath sounds Cardiovascular: no murmur, tachycardia Peripheral Pulses: 2+ Dorsalis Pedis (R), 2+ Left Dors-Pedis (L), 2+ Radial Pulses (R), 2+ Radial Pulses (L) Gastrointestinal: normal bowel sounds, soft, tenderness (mid abdomen) Extremities: non-tender, normal inspection Back: normal inspection, no CVA tenderness, no vertebral tenderness Neurologic/Psychiatric: alert, oriented x 3 Skin: normal color, warm/dry Progress/Results/Core Measures Results/Orders Lab Results Laboratory Tests Test 10/20/19 04:45 Range/Units White Blood Count 12.8 H 4.3-11.0 10^3/uL Red Blood Count 5.43 4.35-5.85 10^6/uL Hemoglobin 15.4 11.5-16.0 G/DL Hematocrit 47 35-52 % Mean Corpuscular Volume 86 80-99 FL Mean Corpuscular Hemoglobin 28 25-34 PG Mean Corpuscular Hemoglobin Concent 33 32-36 G/DL Red Cell Distribution Width 16.3 H 10.0-14.5 % Platelet Count 457 H 130-400 10^3/uL Mean Platelet Volume 9.6 7.4-10.4 FL Neutrophils (%) (Auto) 73 42-75 % Lymphocytes (%) (Auto) 18 12-44 % Monocytes (%) (Auto) 9 0-12 % Eosinophils (%) (Auto) 0 0-10 % Basophils (%) (Auto) 0 0-10 % Neutrophils # (Auto) 9.3 H 1.8-7.8 X 10^3 Lymphocytes # (Auto) 2.3 1.0-4.0 X 10^3 Monocytes # (Auto) 1.2 H 0.0-1.0 X 10^3 Eosinophils # (Auto) 0.0 0.0-0.3 10^3/uL Basophils # (Auto) 0.0 0.0-0.1 10^3/uL Sodium Level 139 135-145 MMOL/L Potassium Level 3.6 3.6-5.0 MMOL/L Chloride Level 92 L 98-107 MMOL/L Carbon Dioxide Level 25 21-32 MMOL/L Anion Gap 22 H 5-14 MMOL/L Blood Urea Nitrogen 24 H 7-18 MG/DL Creatinine 1.40 H 0.60-1.30 MG/DL Estimat Glomerular Filtration Rate 41 BUN/Creatinine Ratio 17 Glucose Level 182 H 70-105 MG/DL Calcium Level 11.2 H 8.5-10.1 MG/DL Corrected Calcium 8.5-10.1 MG/DL Total Bilirubin 0.8 0.1-1.0 MG/DL Aspartate Amino Transf (AST/SGOT) 54 H 5-34 U/L Alanine Aminotransferase (ALT/SGPT) 64 H 0-55 U/L Alkaline Phosphatase 98 40-136 U/L C-Reactive Protein High Sensitivity 0.42 0.00-0.50 MG/DL Total Protein 9.6 H 6.4-8.2 GM/DL Albumin 5.5 H 3.2-4.5 GM/DL Lipase 52 8-78 U/L My Orders Orders - JORGE LUIS DURAN MD Cbc With Automated Diff (10/20/19 04:46) Comprehensive Metabolic Panel (10/20/19 04:46) Hs C Reactive Protein (10/20/19 04:46) Lipase (10/20/19 04:46) Promethazine Injection (Phenergan Injec (10/20/19 04:46) Lactated Ringers (Lr 1000 Ml Iv Solution (10/20/19 04:46) Ed Iv/Invasive Line Start (10/20/19 04:46) Fentanyl Injection (Sublimaze Injection (10/20/19 04:46) Vital Signs/I&O 10/20/19 04:38 Temp 36.9 Pulse 106 Resp 20 B/P (MAP) 163/135 (144) Pulse Ox 100 O2 Delivery Room Air Progress Progress Note : Progress Note Seen and evaluated. IV, labs, LR 1 L bolus, Phenergan 25 mg IV and fentanyl 50 g IV ordered. Monitor patient. 0542: Overall patient is improved. Labs reviewed and nothing significantly concerning. Discharged home with return precautions. Patient verbalize understanding instructions and agreement with plan. Departure Impression Primary Impression: Nausea & vomiting Qualified Codes: R11.2 - Nausea with vomiting, unspecified Additional Impression: Abdominal pain Qualified Codes: R10.10 - Upper abdominal pain, unspecified Disposition: HOME, SELF-CARE Condition: Improved Departure-Patient Inst. Decision time for Depature: 05:43 Referrals: SCARLET ALVES (PCP) Primary Care Physician [facility] (Family) Primary Care Physician PENNY ALMAZAN DO Patient Instructions: Acute Abdomen (Belly Pain), Adult (DC), Nausea and Vomiting, Adult (DC) Add. Discharge Instructions: All discharge instructions reviewed with patient and/or family. Voiced understanding. The liquid diet for the next 12-24 hours and then advance as tolerated. Follow- up with your DrJosé Luis in one to 2 days for recheck and further evaluation. You may also follow up with Dr. Almazan. Call his office for appointment. Return for worse pain, fever, vomiting, weakness, breathing problems or other concerns as needed. Take medications as directed. Scripts Promethazine HCl (Promethazine Tablet) 25 Mg Tablet 25 MG PO Q8H PRN for NAUSEA/VOMITING, #14 TAB 0 Refills Prov: JORGE LUIS DURAN MD 10/20/19 JORGE LUIS DURAN MD October 20, 2019 05:07
[2019-10-20 05:08] LABS: BUN/CREATININE RATIO 17
[2019-10-20 05:10] LABS: ALANINE AMINOTRANSFERASE 64 U/L (0-55); LIPASE 52 U/L (8-78)
[2019-10-20] MEDS ORDERED: PROM25TA14 PO (05:44)
[2019-10-20 05:48] VITALS: BP 195/119
== END 2019-10-20 05:48 | disposition home or self-care (01) ==
LOC: EDUNIT# 04:32 → ER 04:36
DX: R10.13 Epigastric pain (principal); R11.2 Nausea with vomiting, unspecified; F41.9 Anxiety disorder, unspecified; F32.9 Major depressive disorder, single episode, unspecified; K58.9 Irritable bowel syndrome, unspecified; Z85.038 Personal history of other malignant neoplasm of large intestine; Z85.41 Personal history of malignant neoplasm of cervix uteri; Z88.5 Allergy status to narcotic agent; Z88.8 Allergy status to other drugs, medicaments and biological substances; Z88.6 Allergy status to analgesic agent; Z82.49 Family history of ischemic heart disease and other diseases of the circulatory system
CPT/HCPCS: 36415; 80053; 83690; 85025; 86141

== ENCOUNTER 2019-11-15 09:25 | Inpatient (IN) | payer SELFPAY ==
[~2019-11-15] VITALS: Ht 165 cm; Wt 77.3 kg
--- OUTSIDE RECORDS SUMMARY | 2019-11-15 09:35 | XMS REPORT ---
Author Author Maggy Ballesteros Doctor Organization [facility] Address Unknown Phone Unavailable Care Team Providers Care Senior Stock Plan Administrator Name Role Phone Migration, Doctor Unavailable Unavailable PROBLEMS Type Condition ICD9-CM Code QRR30-RI Code Onset Dates Condition S tatus SNOMED Code Problem Elevated liver enzymes R74.8 Active 471513833 Problem Abnormal glucose R73.09 Active 102 089674 Problem Major depressive disorder, recurrent episode, moderate F33.1 Active 174074416 Problem Hyperlipidemia LDL goal <100 E78.5 A ctive 37430558 Problem Other chronic pain G89.29 Active 8 8168554 Problem Intractable chronic migraine without aura and wi th status migrainosus G43.711 Active 912617529 Problem Essential hypertension I10 Active 73712103 Problem Hypokalemia E87.6 Active 78428555 Problem Other chronic pain G89.29 Active 8 0875195 Problem 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 Active 50168399 Problem Primary insomnia F51.01 Active 397 2004 Problem Seizure disorder G40.909 Active 128 098332 Problem Moderate persistent asthma with exacerbation J45.4 1 Active 808805617 Problem Moderate persistent asthma without complication J4 5.40 Active 583447930 Problem Reflux gastritis K29.60 Active 729 34143 Problem Irritable bowel syndrome with constipation K58.1 Active 038600250 Problem Lumbago with sciatica, left side M54.42 Active 896830781 Problem Migraine with aura and without status migrainosu s, not intractable G43.109 Active 8343518 Problem Irritable bowel K58.9 Active 1074 3008 Problem History of hypokalemia Z86.39 Active 064252337 Problem Tremor, hereditary, benign G25.0 Act caitlin 473321239 Problem Chronic migraine without aura with statu s migrainosus, not intractable G43.701 Active 654343616 Problem Lumbago with sciatica, right side M54.41 Active [id number] Problem Mood disorder F39 Active 913380 05 Problem RLS (restless legs syndrome) G25.81 A ctive 31528198 Problem Aneurysm I72.9 Active 26772019 ALLERGIES No Information ENCOUNTERS Encounter Location Date Diagnosis [place] [address] [address] 27 Oct, 2019 [place] [address] [address] 05 Oct, 2019 [place] [address] [address] October, Seizure disorder G40.909 and Tremor, hereditary, benign G25.0 [place] [address] [address] 22 Sep, 2019 Primary insomnia F51.01 ; Ot her chronic pain G89.29 and Pain in right shoulder M25.511 [place] [address] [address] 08 Sep, 2019 Bilious vomiting with nausea R11.14 [facility] [address] [address] 07 Aug, 2019 Influenza A J10.1 [place] [address] [address] 02 Aug, 2019 [place] [address] [address] 02 Aug, 2019 Tinea pedis of both feet B35 .3 and Migraine with aura and without status migrainosus, not intractable G43.109 [place] [address] [address] Jul, [facility] [address] [address] 19 Jul, 2019 Rib pain on left side R07.81 [place] [address] [address] [place] [id number] [address] [place] [address] 10 Jul, 2019 Seizure disorder G40.909 and Aneurysm I72.9 [place] [address] [address] [facility] [id number] [address] [place] [id number] Jul, [facility] [address] [facility] [id number] [address] [place] [address] Jul, Seizure disorder G40.909 ; A neurysm I72.9 ; Migraine with aura and without status migrainosus, not intractable G43.109 and History of hypokalemia Z86.39 [facility] [address] [facility] [id number] [address] [place] [id number] Jul, [facility] [address] [facility] [id number] [address] [place] [id number] Jun, [place] [address] [place] [id number] [address] [place] [address] Jun, Seizures R56.9 ; Migraine wi th aura and without status migrainosus, not intractable G43.109 ; Other chronic pain G89.29 and Pain in right shoulder M25.511 [place] [address] [address] [place] [id number] [address] [place] [address] Jun, [place] [address] [place] [id number] [address] [place] [id number] May, Primary insomnia F51.01 ; In tractable chronic migraine without aura and with status migrainosus G43.711 and Aneurysm I72.9 [place] [address] [address] [place] [id number] [address] [place] [id number] Apr, RLS (restless legs syndrome) G25.81 and Mood disorder F39 [place] [address] [address] [facility] [id number] [address] [place] [address] Apr, [place] [address] [place] [id number] [address] [place] [id number] Mar, Other chronic pain G89.29 an d Pain in right shoulder M25.511 [place] [address] [address] [place] [id number] [address] [place] [address] Mar, Acute left ankle pain M25.57 2 [facility] [address] [id number] [address] [place] [address] Mar, [facility] [address] [id number] [address] [place] [id number] Mar, Acute left ankle pain M25.57 2 [facility] [address] [facility] [id number] [address] [place] [address] Mar, Major depressive disorder, r ecurrent episode, moderate F33.1 [facility] [address] [id number] [address] [place] [address] Mar, Major depressive disorder, r ecurrent episode, moderate F33.1 ; Lumbago with sciatica, left side M54.42 and Lumbago with sciatica, right side M54.41 [facility] [address] [facility] [id number] [address] [place] [id number] Mar, [facility] [address] [facility] [id number] [address] [place] [id number] Mar, [facility] [address] [facility] [id number] [address] [place] [address] Mar, Major depressive disorder, r ecurrent episode, moderate F33.1 ; Lumbago with sciatica, left side M54.42 and Lumbago with sciatica, right side M54.41 [facility] [address] [facility] [id number] [address] [place] [address] Feb, Viral gastroenteritis A08.4 [facility] [address] [id number] [address] [place] [address] Feb, Nausea and vomiting, intract ability of vomiting not specified, unspecified vomiting type R11.2 [facility] [address] [facility] [id number] [address] [place] [id number] Feb, [facility] [address] [facility] [id number] [address] [place] [phone] Feb, [facility] [id number] [place] [address] Feb, C. difficile colitis A04.72 ; Mood disorder F39 ; Lumbago with sciatica, left side M54.42 ; Lumbago with sciatica, right side M54.41 and Other chronic pain G89.29 [place] [address] [address] [place] [id number] [address] [place] [address] Jan, [facility] [place] [address] [address] Jan, Nausea & vomiting R11.[address] [address] Dec, Irritable bowel syndrome wit h constipation K58.1 ; Other chronic pain G89.29 and Pain in right shoulder M25.511 [facility] [address] [address] Dec, Generalized abdominal pain R 10.84 and Nausea and vomiting, intractability of vomiting not specified, unspecified vomiting type R11.2 [facility] [address] [address] Dec, [place] [address] [address] Dec, Dysuria R30.0 and Irritable bowel K58.9 [facility] [id number] [place] [id number] Sep, Chronic nausea R11.0 [place] [address] [address] [place] [id number] [address] [place] [address] Sep, [place] [address] [address] Sep, Viral gastroenteritis A08.4 [facility] [place] [id number] [address] [place] [address] Aug, Headache R51 ; Viral upper r espiratory tract infection J06.9 and Nausea R11.0 [facility] [address] [id number] [address] [place] [id number] Jun, Reflux gastritis K29.60 [facility] [address] [id number] [address] [place] [id number] Jun, [facility] [address] [id number] [address] [place] [phone] May, [facility] [address] [id number] [address] [place] [id number] May, [facility] [address] [id number] [address] [place] [address] Apr, Bowel habit changes R19.4 an d Acute cystitis without hematuria N30.00 [facility] [address] [id number] [address] [place] [address] Apr, Pain in right shoulder M25.5 11 [facility] [address] [id number] [address] [place] [address] Apr, [facility] [address] [id number] [address] [place] [id number] Mar, [facility] [address] [id number] [address] [place] [phone] Mar, [facility] [address] [id number] [address] [place] [address] Mar, [facility] [address] [id number] [address] [place] [id number] Mar, [facility] [address] [id number] [address] [place] [id number] 14 Feb, 2018 [facility] [address] [id number] [address] [place] [id number] 10 Feb, 2018 [facility] [address] [id number] [address] [place] [id number] 05 Feb, 2018 [facility] [address] [address] Jan, [facility] [address] [address] Dec, [facility] [address] [address] Dec, Other chronic pain G89.29 ; Pain in right shoulder M25.511 and Liver enzyme elevation R74.8 [place] [address] [address] Nov, Other chronic pain G89.29 an d Pain in right shoulder M25.511 [place] [address] [address] October, [facility] [address] [address] October, Right shoulder pain, unspeci fied chronicity M25.511 [place] [address] [address] Aug, Elevated liver enzymes R74.8 and Hyperlipidemia LDL goal <100 E78.5 [place] [address] [address] Aug, [place] [address] [address] Jul, [place] [address] [address] Jul, Intractable chronic migraine without aura and with status migrainosus G43.711 ; Fever, unspecified fever cause R50.9 and Elevated liver enzymes R74.8 [place] [address] [address] [place] [id number] [address] [place] [address] Jun, Difficulty urinating R39.198 and Moderate persistent asthma with exacerbation J45.41 [place] [address] [address] Jun, [place] [id number] [place] [address] Jun, Moderate persistent asthma w ith exacerbation J45.41 [place] [address] [address] [place] [id number] [address] [place] [address] May, Elevated liver enzymes R74.8 and Hyperlipidemia LDL goal <[address] [address] May, Elevated lipids E78.5 [place] [address] [place] [id number] [place] [address] Apr, Elevated liver enzymes R74.8 [place] [address] [place] [id number] [place] [address] Apr, Elevated liver enzymes R74.8 [place] [address] [address] Apr, Superior glenoid labrum lesi on of right shoulder, subsequent encounter S43.431D [place] [address] [address] Apr, Hypokalemia E87.6 ; Major de pressive disorder, recurrent episode, moderate F33.1 ; Other abnormalities of breathing R06.89 and Dyspnea, unspecified R06.00 [facility] [address] [place] [id number] [address] [place] [id number] Mar, [facility] J[facility].40 [facility] [address] [place] [id number] [address] [place] [id number] Mar, Impingement syndrome of righ t shoulder M75.41 [facility] [address] [place] [id number] [address] [place] [id number] Jan, [place] [address] [address] [place] [id number] [place] [address] Jan, Chronic migraine without aur a with status migrainosus, not intractable G43.701 ; Essential hypertension I10 ; Irritable bowel K58.9 ; Primary insomnia F51.01 and Hypokalemia E87.6 [facility] [address] [id number] [address] [place] [id number] Dec, [facility] [address] [id number] [address] [place] [id number] Dec, Pain in right shoulder M25.5 11 [facility] [address] [id number] [address] [place] [address] Dec, Essential hypertension I10 [facility] [address] [id number] [address] [place] [id number] Dec, [facility] [address] [facility] [id number] [address] [place] [id number] Nov, Essential hypertension I10 [facility] [address] [facility] [id number] [address] [place] [address] 14 Nov, 2016 Pain in right shoulder M25.5 11 [facility] [address] [id number] [address] [place] [phone] Nov, Pain in right shoulder M25.5 11 [facility] [address] [facility] [id number] [address] [place] [id number] October, [facility] [address] [id number] [address] [place] [address] October, Pain in right shoulder M25.5 11 [facility] [address] [id number] [address] [place] [address] Sep, Arm pain, right M79.601 [facility] [address] [facility] [id number] [address] [place] [address] Sep, [facility] [address] [facility] [id number] [address] [place] [address] Sep, Abnormal glucose R73.09 and Elevated lipids E78.5 [facility] [address] [id number] [address] [place] [address] Sep, Abnormal glucose R73.09 and Elevated lipids E78.5 [place] [address] [place] [id number] [place] [address] Aug, [place] [address] [place] [id number] [address] [place] [address] Aug, [place] [address] [place] [id number] [address] [place] [address] Aug, [place] [address] [place] [id number] [address] [place] [address] Aug, Constipation by delayed colo reny transit K59.01 ; Hypokalemia E87.6 ; Irritable bowel K58.9 ; Essential hypertension I10 ; Pain in right shoulder M25.511 ; Seizure disorder G40.909 and Screening for lipid disorders Z13.220 [place] [address] [address] Jul, Other chronic pain G89.29 an d Pain in right shoulder M25.511 [place] [address] [address] 14 Jul, 2016 Biceps muscle strain, right, subsequent encounter S46.111D [facility] [address] [place] [id number] [address] [place] [address] Jul, Arm pain, right M79.601 [place] [address] [address] [place] [id number] [address] [place] [address] Jun, [place] [address] [place] [id number] [address] [place] [address] Jun, Acute non-recurrent frontal sinusitis J01.10 [place] [address] [place] [id number] [address] [place] [address] 14 May, 2016 Generalized abdominal pain R 10.84 ; Urinary tract infection without hematuria, site unspecified N39.0 ; Hypokalemia E87.6 ; Essential hypertension I10 ; Screening for lipid disorders Z13.220 ; Seizure R56.9 and Low back pain M54.5 [facility] [address] [facility] [id number] [address] [place] [address] Apr, [facility] [address] [facility] [id number] [address] [place] [phone] Feb, [facility] [address] [facility] [id number] [address] [place] [id number] Jan, [facility] [address] [facility] [id number] [address] [place] [id number] Dec, Constipation by delayed colo reny transit K59.01 ; Hypokalemia E87.6 ; Irritable bowel K58.9 and Nausea R11.0 [facility] [address] [facility] [id number] [address] [place] [id number] Dec, Generalized abdominal pain R 10.84 [place] [address] [place] [id number] [address] [place] [id number] Nov, [facility] [address] [place] [id number] [address] [place] [address] Aug, Acute bronchitis J20.9 [place] [address] [place] [id number] [address] [place] [id number] Aug, [facility] [address] [place] [id number] [place] [address] 08 Aug, 2015 Low back pain M54.5 ; Hypoka lemia E87.6 ; Chronic migraine without aura with status migrainosus, not intractable G43.701 ; Tremor, hereditary, benign G25.0 ; Irritable bowel K58.9 ; Essential hypertension I10 and Seizure R56.9 [place] [address] [facility] [id number] [address] [place] [id number] 07 Aug, 2015 [place] [address] [place] [id number] [address] [place] [address] Jul, [place] [address] [address] 03 Jul, 2015 Low back pain M54.5 ; Hypoka lemia E87.6 ; Chronic migraine without aura with status migrainosus, not intractable G43.701 ; Tremor, hereditary, benign G25.0 ; Irritable bowel K58.9 ; Essential hypertension I10 and Seizure R56.9 [place] [address] [address] Jun, Hypokalemia E87.6 [place] [address] [address] Jun, ADD (attention deficit disor dionicio) without hyperactivity F90.0 ; Generalized anxiety disorder F41.1 and Major depressive disorder, recurrent episode, moderate F33.1 [place] [address] [address] Jun, Low back pain M54.5 ; Hypoka lemia E87.6 ; Chronic migraine without aura with status migrainosus, not intractable G43.701 ; Tremor, hereditary, benign G25.0 ; Irritable bowel K58.9 ; Essential hypertension I10 and Seizure R56.9 [place] [address] [address] Jun, [place] [address] [address] May, [place] [address] [address] May, Low back pain M54.5 ; Hypoka lemia E87.6 ; Chronic migraine without aura with status migrainosus, not intractable G43.701 ; Tremor, hereditary, benign G25.0 ; Irritable bowel K58.9 ; Essential hypertension I10 ; Seizure R56.9 and Tinea capitis B35.0 [place] [address] [address] May, Low back pain M54.5 ; Hypoka lemia E87.6 ; Chronic migraine without aura with status migrainosus, not intractable G43.701 ; Tremor, hereditary, benign G25.0 ; Irritable bowel K58.9 ; Essential hypertension I10 ; Seizure R56.9 ; Otitis media, left H66.92 and Dysuria 788.1 [place] [id number] [place] [id number] [address] [place] [address] 14 May, 2015 Tooth pain K08.8 [place] [address] [place] [id number] [place] [address] May, [place] [address] [place] [id number] [place] [address] May, Low back pain M54.5 ; Hypoka lemia E87.6 ; Chronic migraine without aura with status migrainosus, not intractable G43.701 ; Tremor, hereditary, benign G25.0 ; Irritable bowel K58.9 and Essential hypertension I10 [place] [address] [address] Apr, Low back pain M54.5 ; Hypoka lemia E87.6 ; Chronic migraine without aura with status migrainosus, not intractable G43.701 ; Tremor, hereditary, benign G25.0 and Irritable bowel K58.9 [place] [address] [address] Apr, Low back pain M54.5 [place] [address] [place] [id number] [address] [place] [id number] Mar, [place] [address] [place] [id number] [address] [place] [address] Mar, Irritable bowel syndrome wit h diarrhea K58.0 [facility] [address] [place] [id number] [address] [place] [id number] Mar, [place] [address] [place] [id number] [address] [place] [id number] Feb, [place] [address] [place] [id number] [address] [place] [id number] 08 Feb, 2015 [facility] [address] [facility] [id number] [address] [place] [id number] Feb, Irritable bowel syndrome 564 .1 ; Lumbago 724.2 and Cervical pain (neck) 723.1 [facility] [address] [place] [id number] [address] [place] [id number] Dec, Major depressive disorder, r ecurrent episode, moderate 296.32 and Generalized anxiety disorder 300.02 [facility] [address] [facility] [id number] [address] [place] [phone] Nov, [facility] [address] [place] [id number] [address] [place] [address] Nov, Major depressive disorder, r ecurrent episode, moderate 296.32 [facility] [address] [place] [id number] [address] [place] [id number] Nov, Constipation 564.00 ; Nausea & vomiting 787.01 and Abdominal pain 789.00 [facility] [address] [facility] [id number] [address] [place] [id number] Nov, [facility] [address] [place] [id number] [address] [place] [id number] October, [facility] [address] [place] [id number] [address] [place] [id number] October, [facility] [address] [place] [id number] [address] [place] [id number] October, [facility] [address] [facility] [id number] [address] [place] [id number] October, [facility] [address] [place] [id number] [address] [place] [id number] Sep, Dysuria 788.1 [facility] [address] [place] [id number] [address] [place] [address] Sep, [facility] [address] [id number] [address] [place] [address], [place] [address] 30 Sep, 2014 [facility] [address] [id number] [address] [place] [address], [place] [address] 14 Sep, 2014 [facility] [address] [id number] [address] [place] [address], [place] [address] 13 Sep, 2014 [facility] [address] [id number] [address] [place] [address], [place] [address] 30 Aug, 2014 [facility] [address] [id number] [address] [place] [address], [place] [address] 30 Aug, 2014 [facility] [address] [id number] [address] [place] [address], [place] [address] Aug, [facility] [address] [id number] [address] [place] [address], [place] [address] Aug, [facility] [address] [id number] [address] [place] [address], [place] [address] Aug, [facility] [address] [id number] [address] [place] [address], [place] [address] 18 Aug, 2014 [facility] [address] [id number] [address] [place] [address], [place] [address] Aug, [facility] [address] [id number] [address] [place] [address], [place] [address] Aug, [facility] [address] [id number] [address] [place] [address], [place] [address] Aug, [facility] [address] [id number] [address] [place] [address], [place] [address] Aug, [facility] [address] [id number] [address] [place] [address], [place] [address] Jun, [facility] [address] [id number] [address] [place] [address], [place] [address] Jun, [facility] [address] [id number] [address] [place] [address], [place] [address] Jun, [facility] [address] [id number] [address] [place] [address], [place] [address] Jun, [facility] [address] [id number] [address] [place] [address], [place] [address] May, [facility] [address] [id number] [address] [place] [address], [place] [address] May, [facility] [address] [id number] [address] [place] [address], [place] [address] May, [facility] [address] [id number] [address] [place] [address], [place] [address] May, [facility] [address] [id number] [address] [place] [address], [place] [address] May, [facility] [address] [id number] [address] [place] [address], [place] [address] May, [facility] [address] [id number] [address] [place] [address], [place] [address] May, [facility] [address] [id number] [address] [place] [address], [place] [address] May, [facility] [address] [id number] [address] [place] [address] Mar, [facility] [address] [id number] [address] [place] [address] Mar, [facility] [address] [id number] [address] [place] [address] Mar, [facility] [address] [id number] [address] [place] [address], [place] [address] Mar, [facility] [address] [id number] [address] [place] [address], [place] [address] Mar, [facility] [address] [id number] [address] [place] [address] Mar, [facility] [address] [id number] [address] [place] [address] 14 Mar, 2014 [facility] [address] [id number] [address] [place] [address], [place] [address] 14 Mar, 2014 [facility] [address] [id number] [address] [place] [address], [place] [address] Mar, [facility] [address] [id number] [address] [place] [address], [place] [address] Mar, [facility] [address] [id number] [address] [place] [address], [place] [address] Mar, [facility] [address] [id number] [address] [place] [address], [place] [address] Mar, [facility] [address] [id number] [address] [place] [address], [place] [address] Feb, [facility] [address] [id number] [address] [place] [address], [place] [address] 24 Feb, 2014 [facility] [address] [id number] [address] [place] [address], [place] [address] Feb, [facility] [address] [id number] [address] [place] [address], [place] [address] Feb, [facility] [address] [id number] [address] [place] [address], [place] [address] Feb, [facility] [address] [id number] [address] [place] [address], [place] [address] Feb, [facility] [address] [id number] [address] [place] [address], [place] [address] Jan, [facility] [address] [id number] [address] [place] [address], [place] [address] Jan, [facility] [address] [id number] [address] [place] [address], [place] [address] Jan, [facility] [address] [id number] [address] [place] [address], [place] [address] Jan, [facility] [address] [id number] [facility] [place] [address] Jan, [facility] [address] [id number] [facility] [place] [address] Jan, [facility] [address] [id number] [facility] [place] [address] Jan, [facility] [address] [id number] [address] [place] [address], [place] [address] Jan, [facility] [address] [id number] [address] [place] [address], [place] [address] Dec, [facility] [address] [id number] [address] [place] [address], [place] [address] Dec, [facility] [address] [id number] [address] [place] [address], [place] [address] Dec, [facility] [address] [id number] [address] [place] [address], [place] [address] Dec, [facility] [address] [id number] [address] [place] [address], [place] [address] Dec, [facility] [address] [id number] [address] [place] [address], [place] [address] Dec, [facility] [address] [id number] [address] [place] [address], [place] [address] Dec, [facility] [address] [id number] [address] [place] [address], [place] [address] Dec, [facility] [address] [id number] [address] [place] [address], [place] [address] October, [facility] [address] [id number] [address] [place] [address], [place] [address] October, [facility] [address] [id number] [address] [place] [address], [place] [address] Sep, [facility] [address] [id number] [address] [place] [address], [place] [address] Sep, [facility] [address] [id number] [facility] [place] [address] Sep, [facility] [address] [id number] [facility] [place] [address] Sep, [facility] [address] [id number] [address] [place] [address], [place] [address] Sep, [facility] [address] [id number] [address] [place] [address], [place] [address] Sep, [facility] [address] [id number] [address] [place] [address], [place] [address] Sep, [facility] [address] [id number] [address] [place] [address], [place] [address] Sep, [facility] [address] [id number] [address] [place] [address], [place] [address] Sep, [facility] [address] [id number] [address] [place] [address], [place] [address] Sep, [facility] [address] [id number] [address] [place] [address], [place] [address] Sep, [facility] [address] [id number] [address] [place] [address], [place] [address] Sep, [facility] [address] [id number] [address] [place] [address], [place] [address] Aug, [facility] [address] [id number] [address] [place] [address], [place] [address] Aug, [facility] [address] [id number] [address] [place] [address], [place] [address] Aug, [facility] [address] [id number] [address] [place] [address], [place] [address] Jun, [facility] [address] [id number] [address] [place] [address], [place] [address] Jun, [facility] [address] [id number] [address] [place] [address], [place] [address] 14 Jun, 2013 [facility] [address] [id number] [address] [place] [address], [place] [address] Jun, [facility] [address] [id number] [address] [place] [address], [place] [address] Jun, [facility] [address] [id number] [address] [place] [address], [place] [address] Jun, [facility] [address] [id number] [address] [place] [address], [place] [address] Jun, [facility] [address] [id number] [address] [place] [address], [place] [address] Jun, [facility] [address] [id number] [address] [place] [address], [place] [address] Jun, [facility] [address] [id number] [address] [place] [address], [place] [address] Jun, [facility] [address] [id number] [address] [place] [address], [place] [address] May, [facility] [address] [id number] [address] [place] [address], [place] [address] May, [facility] [address] [id number] [address] [place] [address], [place] [address] May, [facility] [address] [id number] [address] [place] [address], [place] [address] May, [facility] [address] [id number] [address] [place] [address], [place] [address] Apr, [facility] [address] [id number] [address] [place] [address], [place] [address] Apr, [facility] [address] [id number] [address] [place] [address], [place] [address] Apr, [facility] [address] [id number] [address] [place] [address], [place] [address] Apr, [facility] [address] [id number] [address] [place] [address], [place] [address] Apr, [facility] [address] [id number] [address] [place] [address], [place] [address] Apr, [facility] [address] [id number] [address] [place] [address], [place] [address] Apr, [facility] [address] [id number] [address] [place] [address], [place] [address] Apr, [facility] [address] [id number] [address] [place] [address], [place] [address] Mar, [facility] [address] [id number] [address] [place] [address], [place] [address] Mar, [facility] [address] [id number] [address] [place] [address], [place] [address] Mar, [facility] [address] [id number] [address] [place] [address], [place] [address] Mar, [facility] [address] [id number] [address] [place] [address], [place] [address] Mar, [facility] [address] [id number] [address] [place] [address], [place] [address] Feb, [facility] [address] [id number] [address] [place] [address], [place] [address] Feb, [facility] [address] [id number] [address] [place] [address], [place] [address] Feb, [facility] [address] [id number] [address] [place] [address], [place] [address] Feb, [facility] [address] [id number] [address] [place] [address], [place] [address] Feb, [facility] [address] [id number] [address] [place] [address], [place] [address] Jan, [facility] [address] [id number] [address] [place] [address], [place] [address] Jan, [facility] [address] [id number] [address] [place] [address], [place] [address] Nov, [facility] [address] [id number] [address] [place] [address], [place] [address] Nov, [facility] [address] [id number] [address] [place] [address], [place] [address] Nov, [facility] [address] [id number] [address] [place] [address], [place] [address] Nov, [facility] [address] [id number] [address] [place] [address], [place] [address] October, [facility] [address] [id number] [address] [place] [address], [place] [address] Sep, [facility] [address] [id number] [address] [place] [address], [place] [address] Aug, [facility] [address] [id number] [address] [place] [address], [place] [address] Aug, [facility] [address] [id number] [address] [place] [address], [place] [address] Aug, [facility] [address] [id number] [address] [place] [address], [place] [address] Aug, [facility] [address] [id number] [address] [place] [address], [place] [address] Jul, [facility] [address] [id number] [address] [place] [address], [place] [address] Jun, [facility] [address] [id number] [address] [place] [address], [place] [address] Jun, [facility] [address] [id number] [address] [place] [address], [place] [address] May, [facility] [address] [id number] [address] [place] [address], [place] [address] May, [facility] [address] [id number] [address] [place] [id number] Mar, [facility] [address] [id number] [address] [place] [address], [place] [address] Mar, [facility] [address] [id number] [address] [place] [address], [place] [address] Mar, [facility] [address] [id number] [address] [place] [address], [place] [address] Mar, [facility] [address] [id number] [address] [place] [address], [place] [address] Mar, [facility] [address] [id number] [address] [place] [address], [place] [address] Mar, [facility] [address] [id number] [address] [place] [address], [place] [address] Mar, [facility] [address] [id number] [address] [place] [address], [place] [address] Mar, [facility] [address] [id number] [address] [place] [address], [place] [address] Mar, [facility] [address] [id number] [address] [place] [address], [place] [address] Mar, [facility] [address] [id number] [address] [place] [address], [place] [address] Mar, [facility] [address] [id number] [address] [place] [address], [place] [address] Mar, [facility] [address] [id number] [address] [place] [address], [place] [address] 17 Mar, 2012 [facility] [address] [id number] [address] [place] [address], [place] [address] 15 Mar, 2012 [facility] [address] [id number] [address] [place] [address], [place] [address] 15 Mar, 2012 [facility] [address] [id number] [address] [place] [address] 15 Mar, 2012 [facility] [address] [id number] [address] [place] [address], [place] [address] 15 Mar, 2012 [facility] [address] [id number] [address] [place] [address], [place] [address] Mar, [facility] [address] [id number] [address] [place] [address], [place] [address] Mar, [facility] [address] [id number] [address] [place] [address], [place] [address] Mar, [facility] [address] [id number] [address] [place] [address], [place] [address] 08 Mar, 2012 [facility] [address] [id number] [address] [place] [address], [place] [address] 03 Mar, 2012 [facility] [address] [id number] [address] [place] [address], [place] [address] Mar, [facility] [address] [id number] [address] [place] [address], [place] [address] 19 Sep2011 [facility] [address] [id number] [address] [place] [address], [place] [address] 18 Sep2011 [facility] [address] [id number] [address] [place] [address] 17 Sep2011 [facility] [address] [id number] [address] [place] [address] 14 Sep, 2011 [facility] [address] [id number] [address] [place] [address] 14 Sep, 2011 [facility] [address] [id number] [address] [place] [address], [place] [address] 12 Sep2011 [facility] [address] [id number] [address] [place] [address] 10 Feb, 2011 [facility] [address] [id number] [address] [place] [address] 31 Jan, 2012 [facility] [address] [id number] [address] [place] [address] Jan, [facility] [address] [id number] [address] [place] [address], [place] [address] Jan, [facility] [address] [id number] [address] [place] [address], [place] [address] Jan, [facility] [address] [id number] [address] [place] [address], [place] [address] Jan, [facility] [address] [id number] [address] [place] [address], [place] [address] Jan, [facility] [address] [id number] [address] [place] [address], [place] [address] Jan, [facility] [address] [id number] [address] [place] [address], [place] [address] Jan, [facility] [address] [id number] [address] [place] [address], [place] [address] Jan, [facility] [address] [id number] [address] [place] [address], [place] [address] Jan, [facility] [address] [id number] [address] [place] [address], [place] [address] Dec, [facility] [address] [id number] [address] [place] [address], [place] [address] Dec, [facility] [address] [id number] [address] [place] [address], [place] [address] Dec, [facility] [address] [id number] [address] [place] [address], [place] [address] Dec, [facility] [address] [id number] [address] [place] [address], [place] [address] Dec, [facility] [address] [id number] [address] [place] [address], [place] [address] Dec, [facility] [address] [id number] [address] [place] [address], [place] [address] 16 Dec, 2011 [facility] [address] [id number] [address] [place] [id number] 14 Dec, 2011 [facility] [address] [id number] [address] [place] [id number] Dec, [facility] [address] [id number] [address] [place] [id number] Dec, [facility] [address] [id number] [address] [place] [id number] 06 Dec, 2011 [facility] [address] [id number] [address] [place] [id number] 29 Nov, 2011 [facility] [address] [id number] [address] [place] [id number] Nov, [facility] [address] [id number] [address] [place] [phone] Nov, [facility] [address] [id number] [address] [place] [phone] Nov, [facility] [address] [id number] [address] [place] [phone] Nov, [facility] [address] [id number] [address] [place] [phone] Nov, [facility] [address] [id number] [address] [place] [id number] Nov, [facility] [address] [id number] [address] [place] [id number] Nov, [facility] [address] [id number] [address] [place] [phone] Nov, [facility] [address] [id number] [address] [place] [id number] Nov, [facility] [address] [id number] [address] [place] [id number] October, IMMUNIZATIONS No Known Immunizations SOCIAL HISTORY Never Assessed REASON FOR VISIT PLAN OF CARE VITAL SIGNS Height 64 in 2013-02-05 Weight 163 lbs 2013-02-05 Temperature 98.6 degrees Fahrenheit 2013-02-05 Heart Rate 68 bpm 2013-02-05 Respiratory Rate 20 2013-02-05 Blood pressure systolic 130 mmHg 2013-02-05 Blood pressure diastolic 90 mmHg 2013-02-05 MEDICATIONS Unknown Medications RESULTS No Results PROCEDURES No Known procedures INSTRUCTIONS MEDICATIONS ADMINISTERED No Known Medications MEDICAL (GENERAL) HISTORY Type Description Date Medical History asthma Medical History irritable bowel syndrome Medical History orthopedic disorder-scoliosis Medical History epilepsy Medical History uterine cancer-2005 Medical History NARC ALERT-TESTED NEG FOR TRAMADOL POS B ROSE AND MORPHINE Medical History Migraine, unspecified withou t mention of intractable migraine without mention of status migrainosus Medical History Cervical pain (neck) Medical History Hypertension Surgical History tonsillectom Surgical History bladder SLING and then removal 2011 Surgical History tubal ligation 2003 Surgical History hysterectomy-total 2005 Surgical History lower GI [facility]ni Valdez -not sure results Surgical History EGD Hospitalization History Hospitalization for surgery Hospitalization History [facility]- Went through the ER a nd was hosp for 3 days- GI related 10/2014 Hospitalization History [facility]--multiple seizures 03/2015 Hospitalization History infection in colon, seizures 05/2015 Hospitalization History Hypokalemia and high blood pressure 06/15/2015 Hospitalization History ER for vomiting- thought she had hyp okalemia 03/2017 [facility] 09/2018 [facility] Cdiff 01/2019
--- OUTSIDE RECORDS SUMMARY | 2019-11-15 09:36 | XMS REPORT ---
Author Author Maggy Ballesteros Doctor Organization [facility] Address Unknown Phone Unavailable Care Team Providers Care Machine Long Goods Helper Name Role Phone Migration, Doctor Unavailable Unavailable PROBLEMS Type Condition ICD9-CM Code [id number] Code Onset Dates Condition S tatus SNOMED Code Problem Elevated liver enzymes R74.8 Active 514990328 Problem Abnormal glucose R73.09 Active 102 744507 Problem Major depressive disorder, recurrent episode, moderate F33.1 Active 088616851 Problem Hyperlipidemia LDL goal <100 E78.5 A ctive 13147541 Problem Other chronic pain G89.29 Active 8 9208374 Problem Intractable chronic migraine without aura and wi th status migrainosus G43.711 Active 642540376 Problem Essential hypertension I10 Active 00010925 Problem Hypokalemia E87.6 Active 47532042 Problem Other chronic pain G89.29 Active 8 8660338 Problem 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 Active 85780295 Problem Primary insomnia F51.01 Active 397 2004 Problem Seizure disorder G40.909 Active 128 677497 Problem Moderate persistent asthma with exacerbation J45.4 1 Active 463281227 Problem Moderate persistent asthma without complication J4 5.40 Active 107363992 Problem Reflux gastritis K29.60 Active 729 87516 Problem Irritable bowel syndrome with constipation K58.1 Active 941902225 Problem Lumbago with sciatica, left side M54.42 Active 919718796 Problem Migraine with aura and without status migrainosu s, not intractable G43.109 Active 3373290 Problem Irritable bowel K58.9 Active 1074 3008 Problem History of hypokalemia Z86.39 Active 076899810 Problem Tremor, hereditary, benign G25.0 Act caitlin 628070270 Problem Chronic migraine without aura with statu s migrainosus, not intractable G43.701 Active 634153686 Problem Lumbago with sciatica, right side M54.41 Active 124397001574510 Problem Mood disorder F39 Active 562474 05 Problem RLS (restless legs syndrome) G25.81 A ctive 88078074 Problem Aneurysm I72.9 Active 28830975 ALLERGIES No Information ENCOUNTERS Encounter Location Date Diagnosis [place] [address] [address] 27 Oct, 2019 [place] [address] [address] 05 Oct, 2019 [place] [address] [address] October, Seizure disorder G40.909 and Tremor, hereditary, benign G25.0 [place] [address] [address] 22 Sep, 2019 Primary insomnia F51.01 ; Ot her chronic pain G89.29 and Pain in right shoulder M25.511 [place] [address] [address] 08 Sep, 2019 Bilious vomiting with nausea R11.14 [facility] [address] [address] 07 Aug, 2019 Influenza A J10.1 [place] [address] [address] 02 Aug, 2019 [place] [address] [address] 02 Aug, 2019 Tinea pedis of both feet B35 .3 and Migraine with aura and without status migrainosus, not intractable G43.109 [place] [address] [address] Jul, [facility] [address] [address] 19 Jul, 2019 Rib pain on left side R07.81 [place] [address] [address] [place] [id number] [place] [address] 10 Jul, 2019 Seizure disorder G40.909 and Aneurysm I72.9 [place] [address] [address] [facility] [id number] [address] [place] [address] Jul, [facility] [place] [address] [facility] [id number] [address] [place] [address] Jul, Seizure disorder G40.909 ; A neurysm I72.9 ; Migraine with aura and without status migrainosus, not intractable G43.109 and History of hypokalemia Z86.39 [facility], [place] [address] [facility] [id number] [address] [place] [id number] Jul, [facility] [place] [address] [facility] [id number] [address] [place] [address] Jun, [place] [address] [address] [place] [id number] [place] [address] Jun, Seizures R56.9 ; Migraine wi th aura and without status migrainosus, not intractable G43.109 ; Other chronic pain G89.29 and Pain in right shoulder M25.511 [place] [address] [address] [place] [id number] [place] [address] Jun, [place] [address] [address] [place] [id number] [place] [address] May, Primary insomnia F51.01 ; In tractable chronic migraine without aura and with status migrainosus G43.711 and Aneurysm I72.9 [place] [address] [address] [place] [id number] [address] [place] [address] Apr, RLS (restless legs syndrome) G25.81 and Mood disorder F39 [place] [address] [address] [facility] [id number] [address] [place] [id number] Apr, [place] [address] [address] [place] [id number] [address] [place] [address] Mar, Other chronic pain G89.29 an d Pain in right shoulder M25.511 [place] [address] [address] [place] [id number] [address] [place] [address] Mar, Acute left ankle pain M25.57 2 [facility], [place] [address] [id number] [address] [place] [address] Mar, [facility], [place] [address] [id number] [address] [place] [address] Mar, Acute left ankle pain M25.57 2 [facility] [place] [address] [facility] [id number] [address] [place] [address] Mar, Major depressive disorder, r ecurrent episode, moderate F33.1 [facility], [place] [address] [id number] [address] [place] [address] Mar, Major depressive disorder, r ecurrent episode, moderate F33.1 ; Lumbago with sciatica, left side M54.42 and Lumbago with sciatica, right side M54.41 [facility], [place] [address] [facility] [id number] [address] [place] [id number] Mar, [facility], [place] [address] [facility] [id number] [address] [place] [address] Mar, [facility], [place] [address] [facility] [id number] [address] [place] [id number] Mar, Major depressive disorder, r ecurrent episode, moderate F33.1 ; Lumbago with sciatica, left side M54.42 and Lumbago with sciatica, right side M54.41 [facility], [place] [address] [facility] [id number] [address] [place] [id number] Feb, Viral gastroenteritis A08.4 [facility] [address] [id number] [address] [place] [id number] Feb, Nausea and vomiting, intract ability of vomiting not specified, unspecified vomiting type R11.2 [facility] [place] [address] [facility] [id number] [address] [place] [id number] Feb, [facility], [place] [address] [facility] [id number] [address] [place] [id number] Feb, [facility], [place] [id number] [place] [address] Feb, C. difficile colitis A04.72 ; Mood disorder F39 ; Lumbago with sciatica, left side M54.42 ; Lumbago with sciatica, right side M54.41 and Other chronic pain G89.29 [place] [address] [address] [place] [id number] [address] [place] [address] Jan, [facility] WALK [facility] [place] [address] [address] Jan, Nausea & vomiting R11.[address] [address] Dec, Irritable bowel syndrome wit h constipation K58.1 ; Other chronic pain G89.29 and Pain in right shoulder M25.511 [facility] W[facility] IN [address] [address] Dec, Generalized abdominal pain R 10.84 and Nausea and vomiting, intractability of vomiting not specified, unspecified vomiting type R11.2 [facility] [address] [address] Dec, [place] [address] [address] Dec, Dysuria R30.0 and Irritable bowel K58.9 [facility] [id number] [place] [id number] Sep, Chronic nausea R11.0 [place] [address] [address] [place] [id number] [address] [place] [address] Sep, [place] [address] [address] Sep, Viral gastroenteritis A08.4 [facility]ALK [facility] [place] [id number] [address] [place] [address] Aug, Headache R51 ; Viral upper r espiratory tract infection J06.9 and Nausea R11.0 [facility] [address] [id number] [address] [place] [address] Jun, Reflux gastritis K29.60 [facility] [place] [address] [id number] [address] [place] [id number] Jun, [facility] [place] [address] [id number] [address] [place] [address] May, [facility], [place] [address] [id number] [address] [place] [phone] May, [facility] [place] [address] [id number] [address] [place] [address] Apr, Bowel habit changes R19.4 an d Acute cystitis without hematuria N30.00 [facility] [place] [address] [id number] [address] [place] [id number] Apr, Pain in right shoulder M25.5 11 [facility] [place] [address] [id number] [address] [place] [address] Apr, [facility] [place] [address] [id number] [address] [place] [id number] Mar, [facility], [place] [address] [id number] [address] [place] [id number] Mar, [facility], [place] [address] [id number] [address] [place] [address] Mar, [facility], [place] [address] [id number] [address] [place] [address] Mar, [facility], [place] [address] [id number] [address] [place] [id number] 14 Feb, 2018 [facility] [place] [address] [id number] [address] [place] [id number] 10 Feb, 2018 [facility] [place] [address] [id number] [address] [place] [id number] 05 Feb, 2018 [facility] [place] [address] [address] Jan, [facility], [place] [address] [address] Dec, [facility], [place] [address] [address] Dec, Other chronic pain G89.29 ; Pain in right shoulder M25.511 and Liver enzyme elevation R74.8 [place] [address] [address] Nov, Other chronic pain G89.29 an d Pain in right shoulder M25.511 [place] [address] [address] October, [facility] [address] [address] October, Right shoulder pain, unspeci fied chronicity M25.511 [place] [address] [address] Aug, Elevated liver enzymes R74.8 and Hyperlipidemia LDL goal <100 E78.5 [place] [address] [address] Aug, [place] [address] [address] Jul, [place] [address] [address] Jul, Intractable chronic migraine without aura and with status migrainosus G43.711 ; Fever, unspecified fever cause R50.9 and Elevated liver enzymes R74.8 [place] [address] [address] [place] [id number] [address] [place] [address] Jun, Difficulty urinating R39.198 and Moderate persistent asthma with exacerbation J45.41 [place] [address] [address] Jun, [place] [id number] [place] [address] Jun, Moderate persistent asthma w ith exacerbation J45.41 [place] [address] [address] [place] [id number] [address] [place] [address] May, Elevated liver enzymes R74.8 and Hyperlipidemia LDL goal <[address] [address] May, Elevated lipids E78.5 [place] [address] [address] [place] [id number] [place] [address] Apr, Elevated liver enzymes R74.8 [place] [address] [address] [place] [id number] [place] [address] Apr, Elevated liver enzymes R74.8 [place] [address] [address] Apr, Superior glenoid labrum lesi on of right shoulder, subsequent encounter S43.431D [place] [address] [address] Apr, Hypokalemia E87.6 ; Major de pressive disorder, recurrent episode, moderate F33.1 ; Other abnormalities of breathing R06.89 and Dyspnea, unspecified R06.[address] [facility] [address] [place] [id number] [address] [place] [address] Mar, Moderate persistent [facility] J45.40 [facility] [place] [address] [place] [id number] [address] [place] [address] Mar, Impingement syndrome of righ t shoulder M75.41 [facility], [place] [address] [place] [id number] [address] [place] [address] Jan, [place] [address] [place] [id number] [place] [address] Jan, Chronic migraine without aur a with status migrainosus, not intractable G43.701 ; Essential hypertension I10 ; Irritable bowel K58.9 ; Primary insomnia F51.01 and Hypokalemia E87.6 [facility] [place] [address] [id number] [address] [place] [id number] Dec, [facility] [place] [address] [id number] [address] [place] [address] Dec, Pain in right shoulder M25.5 11 [facility] [place] [address] [id number] [address] [place] [id number] Dec, Essential hypertension I10 [facility] [place] [address] [id number] [address] [place] [id number] Dec, [facility] [place] [address] [facility] [id number] [address] [place] [address] Nov, Essential hypertension I10 [facility] [place] [address] [facility] [id number] [address] [place] [id number] 14 Nov, 2016 Pain in right shoulder M25.5 11 [facility] [place] [address] [id number] [address] [place] [address] Nov, Pain in right shoulder M25.5 11 [facility] [place] [address] [facility] [id number] [address] [place] [address] October, [facility] [place] [address] [id number] [address] [place] [phone] October, Pain in right shoulder M25.5 11 [facility] [place] [address] [id number] [address] [place] [address] Sep, Arm pain, right M79.601 [facility], [place] [address] [facility] [id number] [address] [place] [address] Sep, [facility] [place] [address] [facility] [id number] [address] [place] [address] Sep, Abnormal glucose R73.09 and Elevated lipids E78.5 [facility] [place] [address] [id number] [address] [place] [address] Sep, Abnormal glucose R73.09 and Elevated lipids E78.5 [place] [address] [place] [id number] [place] [address] Aug, [place] [address] [place] [id number] [address] [place] [address] Aug, [place] [address] [place] [id number] [address] [place] [address] Aug, [place] [address] [place] [id number] [address] [place] [address] Aug, Constipation by delayed colo reny transit K59.01 ; Hypokalemia E87.6 ; Irritable bowel K58.9 ; Essential hypertension I10 ; Pain in right shoulder M25.511 ; Seizure disorder G40.909 and Screening for lipid disorders Z13.220 [place] [address] [address] Jul, Other chronic pain G89.29 an d Pain in right shoulder M25.511 [place] [address] [address] 14 Jul, 2016 Biceps muscle strain, right, subsequent encounter S46.111D [facility] [address] [place] [id number] [address] [place] [address] Jul, Arm pain, right M79.601 [place] [address] [address] [place] [id number] [address] [place] [address] Jun, [place] [address] [place] [id number] [address] [place] [address] Jun, Acute non-recurrent frontal sinusitis J01.10 [place] [address] [place] [id number] [address] [place] [address] 14 May, 2016 Generalized abdominal pain R 10.84 ; Urinary tract infection without hematuria, site unspecified N39.0 ; Hypokalemia E87.6 ; Essential hypertension I10 ; Screening for lipid disorders Z13.220 ; Seizure R56.9 and Low back pain M54.5 [facility] [place] [address] [facility] [id number] [address] [place] [id number] Apr, [facility] [address] [facility] [id number] [address] [place] [address] Feb, [facility] [place] [address] [facility] [id number] [address] [place] [phone] Jan, [facility] [place] [address] [facility] [id number] [address] [place] [address] Dec, Constipation by delayed colo reny transit K59.01 ; Hypokalemia E87.6 ; Irritable bowel K58.9 and Nausea R11.0 [facility] [address] [facility] [id number] [address] [place] [address] Dec, Generalized abdominal pain R 10.84 [place] [address] [place] [id number] [address] [place] [id number] Nov, [facility] [address] [place] [id number] [address] [place] [address] Aug, Acute bronchitis J20.9 [place] [address] [place] [id number] [address] [place] [address] Aug, [facility], [place] [address] [place] [id number] [place] [address] 08 Aug, 2015 Low back pain M54.5 ; Hypoka lemia E87.6 ; Chronic migraine without aura with status migrainosus, not intractable G43.701 ; Tremor, hereditary, benign G25.0 ; Irritable bowel K58.9 ; Essential hypertension I10 and Seizure R56.9 [place] [address] [facility] [id number] [address] [place] [id number] 07 Aug, 2015 [place] [address] [place] [id number] [address] [place] [address] Jul, [place] [address] [address] 03 Jul, 2015 Low back pain M54.5 ; Hypoka lemia E87.6 ; Chronic migraine without aura with status migrainosus, not intractable G43.701 ; Tremor, hereditary, benign G25.0 ; Irritable bowel K58.9 ; Essential hypertension I10 and Seizure R56.9 [place] [address] [address] Jun, Hypokalemia E87.6 [place] [address] [address] Jun, ADD (attention deficit disor dionicio) without hyperactivity F90.0 ; Generalized anxiety disorder F41.1 and Major depressive disorder, recurrent episode, moderate F33.1 [place] [address] [address] Jun, Low back pain M54.5 ; Hypoka lemia E87.6 ; Chronic migraine without aura with status migrainosus, not intractable G43.701 ; Tremor, hereditary, benign G25.0 ; Irritable bowel K58.9 ; Essential hypertension I10 and Seizure R56.9 [place] [address] [address] Jun, [place] [address] [address] May, [place] [address] [address] May, Low back pain M54.5 ; Hypoka lemia E87.6 ; Chronic migraine without aura with status migrainosus, not intractable G43.701 ; Tremor, hereditary, benign G25.0 ; Irritable bowel K58.9 ; Essential hypertension I10 ; Seizure R56.9 and Tinea capitis B35.0 [place] [address] [address] May, Low back pain M54.5 ; Hypoka lemia E87.6 ; Chronic migraine without aura with status migrainosus, not intractable G43.701 ; Tremor, hereditary, benign G25.0 ; Irritable bowel K58.9 ; Essential hypertension I10 ; Seizure R56.9 ; Otitis media, left H66.92 and Dysuria 788.1 [place] [id number] [place] [id number] [address] [place] [id number] 14 May, 2015 Tooth pain K08.8 [place] [address] [place] [id number] [place] [address] May, [place] [address] [place] [id number] [place] [address] May, Low back pain M54.5 ; Hypoka lemia E87.6 ; Chronic migraine without aura with status migrainosus, not intractable G43.701 ; Tremor, hereditary, benign G25.0 ; Irritable bowel K58.9 and Essential hypertension I10 [place] [address] [address] Apr, Low back pain M54.5 ; Hypoka lemia E87.6 ; Chronic migraine without aura with status migrainosus, not intractable G43.701 ; Tremor, hereditary, benign G25.0 and Irritable bowel K58.9 [place] [address] [id number] Apr, Low back pain M54.5 [place] [address] [place] [id number] [address] [place] [id number] Mar, [place] [address] [place] [id number] [place] [id number] Mar, Irritable bowel syndrome wit h diarrhea K58.0 [facility], [place] [address] [place] [id number] [place] [id number] Mar, [place] [address] [place] [id number] [place] [id number] Feb, [place] [address] [place] [id number] [place] [id number] 08 Feb, 2015 [facility], [place] [address] [facility] [id number] [address] [place] [id number] Feb, Irritable bowel syndrome 564 .1 ; Lumbago 724.2 and Cervical pain (neck) 723.1 [facility], [place] [address] [place] [id number] [place] [id number] Dec, Major depressive disorder, r ecurrent episode, moderate 296.32 and Generalized anxiety disorder 300.02 [facility] [place] [address] [facility] [id number] [address] [place] [id number] Nov, [facility] [place] [address] [place] [id number] [place] [id number] Nov, Major depressive disorder, r ecurrent episode, moderate 296.32 [facility] [place] [address] [place] [id number] [place] [phone] Nov, Constipation 564.00 ; Nausea & vomiting 787.01 and Abdominal pain 789.00 [facility] [place] [address] [facility] [id number] [address] [place] [id number] Nov, [facility] [place] [address] [place] [id number] [place] [id number] October, [facility], [place] [address] [place] [id number] [place] [id number] October, [facility], [place] [address] [place] [id number] [place] [id number] October, [facility] [place] [address] [facility] [id number] [address] [place] [id number] October, [facility] [place] [address] [place] [id number] [address] [place] [id number] Sep, Dysuria 788.1 [facility] [place] [address] [id number] [address] [place] [id number] Sep, [facility] [address] [id number] [address] [place] [address], [place] [id number] 30 Sep, 2014 [facility] [address] [id number] [address] [place] [address], [place] [id number] 14 Sep, 2014 [facility] [address] [id number] [address] [place] [address], [place] [id number] 13 Sep, 2014 [facility] [address] [id number] [address] [place] [address], [place] [id number] 30 Aug, 2014 [facility] [address] [id number] [address] [place] [address], [place] [id number] 30 Aug, 2014 [facility] [address] [id number] [address] [place] [address], [place] [id number] Aug, [facility] [address] [id number] [address] [place] [address], [place] [id number] Aug, [facility] [address] [id number] [address] [place] [address], [place] [id number] Aug, [facility] [address] [id number] [address] [place] [address], [place] [id number] 18 Aug, 2014 [facility] [address] [id number] [address] [place] [address], [place] [id number] Aug, [facility] [address] [id number] [address] [place] [address], [place] [address] Aug, [facility] [address] [id number] [address] [place] [address], [place] [id number] Aug, [facility] [address] [id number] [address] [place] [address], [place] [id number] Aug, [facility] [address] [id number] [address] [place] [address], [place] [id number] Jun, [facility] [address] [id number] [address] [place] [address], [place] [id number] Jun, [facility] [address] [id number] [address] [place] [address], [place] [id number] Jun, [facility] [address] [id number] [address] [place] [address], [place] [id number] Jun, [facility] [address] [id number] [address] [place] [address], [place] [id number] May, [facility] [address] [id number] [address] [place] [address], [place] [id number] May, [facility] [address] [id number] [address] [place] [address], [place] [id number] May, [facility] [address] [id number] [address] [place] [address], [place] [id number] May, [facility] [address] [id number] [address] [place] [address], [place] [id number] May, [facility] [address] [id number] [address] [place] [address], [place] [id number] May, [facility] [address] [id number] [address] [place] [address], [place] [id number] May, [facility] [address] [id number] [address] [place] [address], [place] [id number] May, [facility] [address] [id number] [address] [place] [id number] Mar, [facility] [address] [id number] [address] [place] [id number] Mar, [facility] [address] [id number] [address] [place] [id number] Mar, [facility] [address] [id number] [address] [place] [address], [place] [id number] Mar, [facility] [address] [id number] [address] [place] [address], [place] [id number] Mar, [facility] [address] [id number] [address] [place] [id number] Mar, [facility] [address] [id number] [address] [place] [id number] 14 Mar, 2014 [facility] [address] [id number] [address] [place] [address], [place] [id number] 14 Mar, 2014 [facility] [address] [id number] [address] [place] [address], [place] [id number] Mar, [facility] [address] [id number] [address] [place] [address], [place] [id number] Mar, [facility] [address] [id number] [address] [place] [address], [place] [id number] Mar, [facility] [address] [id number] [address] [place] [address], [place] [id number] Mar, [facility] [address] [id number] [address] [place] [address], [place] [id number] Feb, [facility] [address] [id number] [address] [place] [address], [place] [id number] 24 Feb, 2014 [facility] [address] [id number] [address] [place] [address], [place] [id number] Feb, [facility] [address] [id number] [address] [place] [address], [place] [id number] Feb, [facility] [address] [id number] [address] [place] [address], [place] [id number] Feb, [facility] [address] [id number] [address] [place] [address], [place] [id number] Feb, [facility] [address] [id number] [address] [place] [address], [place] [id number] Jan, [facility] [address] [id number] [address] [place] [address], [place] [id number] Jan, [facility] [address] [id number] [address] [place] [address], [place] [id number] Jan, [facility] [address] [id number] [address] [place] [address], [place] [id number] Jan, [facility] [address] [id number] [facility] [place] [address] Jan, [facility] [address] [id number] [facility] [place] [address] Jan, [facility] [address] [id number] [facility] [place] [address] Jan, [facility] [address] [id number] [address] [place] [address], [place] [id number] Jan, [facility] [address] [id number] [address] [place] [address], [place] [address] Dec, [facility] [address] [id number] [address] [place] [address], [place] [id number] Dec, [facility] [address] [id number] [address] [place] [address], [place] [id number] Dec, [facility] [address] [id number] [address] [place] [address], [place] [id number] Dec, [facility] [address] [id number] [address] [place] [address], [place] [id number] Dec, [facility] [address] [id number] [address] [place] [address], [place] [address] Dec, [facility] [address] [id number] [address] [place] [address], [place] [id number] Dec, [facility] [address] [id number] [address] [place] [address], [place] [id number] Dec, [facility] [address] [id number] [address] [place] [address], [place] [id number] October, [facility] [address] [id number] [address] [place] [address], [place] [id number] October, [facility] [address] [id number] [address] [place] [address], [place] [id number] Sep, [facility] [address] [id number] [address] [place] [address], [place] [address] Sep, [facility] [address] [id number] [facility] [place] [id number] Sep, [facility] [address] [id number] [facility] [place] [id number] Sep, [facility] [address] [id number] [address] [place] [address], [place] [id number] Sep, [facility] [address] [id number] [address] [place] [address], [place] [id number] Sep, [facility] [address] [id number] [address] [place] [address], [place] [id number] Sep, [facility] [address] [id number] [address] [place] [address], [place] [id number] Sep, [facility] [address] [id number] [address] [place] [address], [place] [id number] Sep, [facility] [address] [id number] [address] [place] [address], [place] [id number] Sep, [facility] [address] [id number] [address] [place] [address], [place] [id number] Sep, [facility] [address] [id number] [address] [place] [address], [place] [id number] Sep, [facility] [address] [id number] [address] [place] [address], [place] [id number] Aug, [facility] [address] [id number] [address] [place] [address], [place] [id number] Aug, [facility] [address] [id number] [address] [place] [address], [place] [id number] Aug, [facility] [address] [id number] [address] [place] [address], [place] [id number] Jun, [facility] [address] [id number] [address] [place] [address], [place] [id number] Jun, [facility] [address] [id number] [address] [place] [address], [place] [id number] 14 Jun, 2013 [facility] [address] [id number] [address] [place] [address], [place] [id number] Jun, [facility] [address] [id number] [address] [place] [address], [place] [id number] Jun, [facility] [address] [id number] [address] [place] [address], [place] [id number] Jun, [facility] [address] [id number] [address] [place] [address], [place] [id number] Jun, [facility] [address] [id number] [address] [place] [address], [place] [address] Jun, [facility] [address] [id number] [address] [place] [address], [place] [id number] Jun, [facility] [address] [id number] [address] [place] [address], [place] [id number] Jun, [facility] [address] [id number] [address] [place] [address], [place] [id number] May, [facility] [address] [id number] [address] [place] [address], [place] [id number] May, [facility] [address] [id number] [address] [place] [address], [place] [address] May, [facility] [address] [id number] [address] [place] [address], [place] [id number] May, [facility] [address] [id number] [address] [place] [address], [place] [id number] Apr, [facility] [address] [id number] [address] [place] [address], [place] [id number] Apr, [facility] [address] [id number] [address] [place] [address], [place] [id number] Apr, [facility] [address] [id number] [address] [place] [address], [place] [id number] Apr, [facility] [address] [id number] [address] [place] [address], [place] [id number] Apr, [facility] [address] [id number] [address] [place] [address], [place] [id number] Apr, [facility] [address] [id number] [address] [place] [address], [place] [id number] Apr, [facility] [address] [id number] [address] [place] [address], [place] [id number] Apr, [facility] [address] [id number] [address] [place] [address], [place] [id number] Mar, [facility] [address] [id number] [address] [place] [address], [place] [id number] Mar, [facility] [address] [id number] [address] [place] [address], [place] [address] Mar, [facility] [address] [id number] [address] [place] [address], [place] [id number] Mar, [facility] [address] [id number] [address] [place] [address], [place] [id number] Mar, [facility] [address] [id number] [address] [place] [address], [place] [id number] Feb, [facility] [address] [id number] [address] [place] [address], [place] [address] Feb, [facility] [address] [id number] [address] [place] [address], [place] [id number] Feb, [facility] [address] [id number] [address] [place] [address], [place] [id number] Feb, [facility] [address] [id number] [address] [place] [address], [place] [id number] Feb, [facility] [address] [id number] [address] [place] [address], [place] [address] Jan, [facility] [address] [id number] [address] [place] [address], [place] [id number] Jan, [facility] [address] [id number] [address] [place] [address], [place] [address] Nov, [facility] [address] [id number] [address] [place] [address], [place] [address] Nov, [facility] [address] [id number] [address] [place] [address], [place] [address] Nov, [facility] [address] [id number] [address] [place] [address], [place] [id number] Nov, [facility] [address] [id number] [address] [place] [address], [place] [address] October, [facility] [address] [id number] [address] [place] [address], [place] [address] Sep, [facility] [address] [id number] [address] [place] [address], [place] [id number] Aug, [facility] [address] [id number] [address] [place] [address], [place] [id number] Aug, [facility] [address] [id number] [address] [place] [address], [place] [address] Aug, [facility] [address] [id number] [address] [place] [address], [place] [id number] Aug, [facility] [address] [id number] [address] [place] [address], [place] [id number] Jul, [facility] [address] [id number] [address] [place] [address], [place] [id number] Jun, [facility] [address] [id number] [address] [place] [address], [place] [id number] Jun, [facility] [address] [id number] [address] [place] [address], [place] [id number] May, [facility] [address] [id number] [address] [place] [address], [place] [id number] May, [facility] [address] [id number] [address] [place] [id number] Mar, [facility] [address] [id number] [address] [place] [address], [place] [address] Mar, [facility] [address] [id number] [address] [place] [address], [place] [id number] Mar, [facility] [address] [id number] [address] [place] [address], [place] [address] Mar, [facility] [address] [id number] [address] [place] [address], [place] [address] Mar, [facility] [address] [id number] [address] [place] [address], [place] [address] Mar, [facility] [address] [id number] [address] [place] [address], [place] [address] Mar, [facility] [address] [id number] [address] [place] [address], [place] [address] Mar, [facility] [address] [id number] [address] [place] [address], [place] [id number] Mar, [facility] [address] [id number] [address] [place] [address], [place] [address] Mar, [facility] [address] [id number] [address] [place] [address], [place] [id number] Mar, [facility] [address] [id number] [address] [place] [address], [place] [id number] Mar, [facility] [address] [id number] [address] [place] [address], [place] [id number] 17 Mar, 2012 [facility] [address] [id number] [address] [place] [address], [place] [id number] 15 Mar, 2012 [facility] [address] [id number] [address] [place] [address], [place] [id number] 15 Mar, 2012 [facility] [address] [id number] [address] [place] [id number] 15 Mar, 2012 [facility] [address] [id number] [address] [place] [address], [place] [id number] 15 Mar, 2012 [facility] [address] [id number] [address] [place] [address], [place] [id number] Mar, [facility] [address] [id number] [address] [place] [address], [place] [address] Mar, [facility] [address] [id number] [address] [place] [address], [place] [address] Mar, [facility] [address] [id number] [address] [place] [address], [place] [id number] 08 Mar, 2012 [facility] [address] [id number] [address] [place] [address], [place] [id number] 03 Mar, 2012 [facility] [address] [id number] [address] [place] [address], [place] [id number] Mar, [facility] [address] [id number] [address] [place] [address] [id number] 19 Sep2011 [facility] [address] [id number] [address] [place] [address] [id number] 18 Sep2011 [facility] [address] [id number] [address] [place] [id number] 17 Sep2011 [facility] [address] [id number] [address] [place] [id number] 14 Sep, 2011 [facility] [address] [id number] [address] [place] [id number] 14 Sep, 2011 [facility] [address] [id number] [address] [place] [address], [place] [id number] 12 Sep2011 [facility] [address] [id number] [address] [place] [id number] 10 Feb, 2011 [facility] [address] [id number] [address] [place] [id number] 31 Jan, 2012 [facility] [address] [id number] [address] [place] [phone] Jan, [facility] [address] [id number] [address] [place] [address], [place] [id number] Jan, [facility] [address] [id number] [address] [place] [address], [place] [id number] Jan, [facility] [address] [id number] [address] [place] [address], [place] [id number] Jan, [facility] [address] [id number] [address] [place] [address], [place] [id number] Jan, [facility] [address] [id number] [address] [place] [address], [place] [id number] Jan, [facility] [address] [id number] [address] [place] [address], [place] [id number] Jan, [facility] [address] [id number] [address] [place] [address], [place] [id number] Jan, [facility] [address] [id number] [address] [place] [address], [place] [id number] Jan, [facility] [address] [id number] [address] [place] [address], [place] [id number] Dec, [facility] [address] [id number] [address] [place] [address], [place] [id number] Dec, [facility] [address] [id number] [address] [place] [address], [place] [id number] Dec, [facility] [address] [id number] [address] [place] [address], [place] [id number] Dec, [facility] [address] [id number] [address] [place] [address], [place] [id number] Dec, [facility] [address] [id number] [address] [place] [address], [place] [id number] Dec, [facility] [address] [id number] [address] [place] [address], [place] [id number] 16 Dec, 2011 [facility] [place] [address] [id number] [address] [place] [id number] 14 Dec, 2011 [facility] [place] [address] [id number] [address] [place] [id number] Dec, [facility] [place] [address] [id number] [address] [place] [id number] Dec, [facility] [place] [address] [id number] [address] [place] [id number] 06 Dec, 2011 [facility] [place] [address] [id number] [address] [place] [id number] 29 Nov, 2011 [facility] [place] [address] [id number] [address] [place] [phone] Nov, [facility] [place] [address] [id number] [address] [place] [id number] Nov, [facility] [place] [address] [id number] [address] [place] [id number] Nov, [facility] [place] [address] [id number] [address] [place] [phone] Nov, [facility] [place] [address] [id number] [address] [place] [id number] Nov, [facility] [place] [address] [id number] [address] [place] [id number] Nov, [facility] [place] [address] [id number] [address] [place] [id number] 13 Nov, 2011 [facility] [place] [address] [id number] [address] [place] [phone] Nov, [facility] [place] [address] [id number] [address] [place] [id number] 05 Nov, 2011 [facility] [place] [address] [id number] [address] [place] [id number] October, IMMUNIZATIONS No Known Immunizations SOCIAL HISTORY Never Assessed REASON FOR VISIT PLAN OF CARE VITAL SIGNS Height 64 in 2012-11-06 Weight 176 lbs 2012-11-06 Temperature 99.3 degrees Fahrenheit 2012-11-06 Heart Rate 88 bpm 2012-11-06 Respiratory Rate 18 2012-11-06 Blood pressure systolic 96 mmHg 2012-11-06 Blood pressure diastolic 58 mmHg 2012-11-06 MEDICATIONS Unknown Medications RESULTS No Results PROCEDURES Procedure Date Ordered Result Body Site COMPLETE CBC W/AUTO DIFF WBC November 06, 2012 RBC SED RATE, AUTOMATED November 06, 2012 ASSAY THYROID STIM HORMONE November 06, 2012 GLYCATED HEMOGLOBIN TEST November 06, 2012 COMPREHEN METABOLIC PANEL November 06, 2012 ASSAY OF VITAMIN D November 06, 2012 URINALYSIS, AUTO, W/O SCOPE November 06, 2012 VENIPUNCT, ROUTINE* November 06, 2012 INSTRUCTIONS MEDICATIONS ADMINISTERED No Known Medications MEDICAL [...] hysterectomy-total 2005 Surgical History lower GI [facility] -not sure results Surgical History EGD Hospitalization [...]
--- OUTSIDE RECORDS SUMMARY | 2019-11-15 09:36 | XMS REPORT ---
Author Author Maggy HAMILTON Organization [facility], [place] Address Unknown Care Team Providers Care Patient Care Coordinator Name Role Phone NANCY HAMILTONLEY Unavailable PROBLEMS Type Condition ICD9-CM Code GIC52-AT Code Onset Dates Condition S tatus SNOMED Code Problem Elevated liver enzymes R74.8 Active 850975227 Problem Abnormal glucose R73.09 Active 102 756107 Problem Major depressive disorder, recurrent episode, moderate F33.1 Active 449118372 Problem Hyperlipidemia LDL goal <100 E78.5 A ctive 23439480 Problem Other chronic pain G89.29 Active 8 5926181 Problem Intractable chronic migraine without aura and wi th status migrainosus G43.711 Active 158597242 Problem Essential hypertension I10 Active 03418346 Problem Hypokalemia E87.6 Active 71073559 Problem Other chronic pain G89.29 Active 8 8370966 Problem 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 Active 47859882 Problem Primary insomnia F51.01 Active 397 2004 Problem Seizure disorder G40.909 Active 128 027701 Problem Moderate persistent asthma with exacerbation J45.4 1 Active 627536468 Problem Moderate persistent asthma without complication J4 5.40 Active 514232643 Problem Reflux gastritis K29.60 Active 729 44337 Problem Irritable bowel syndrome with constipation K58.1 Active 438785969 Problem Lumbago with sciatica, left side M54.42 Active 469403775 Problem Migraine with aura and without status migrainosu s, not intractable G43.109 Active 9125941 Problem Irritable bowel K58.9 Active 1074 3008 Problem History of hypokalemia Z86.39 Active 509974224 Problem Tremor, hereditary, benign G25.0 Act caitlin 942289394 Problem Chronic migraine without aura with statu s migrainosus, not intractable G43.701 Active 968310077 Problem Lumbago with sciatica, right side M54.41 Active [id number] Problem Mood disorder F39 Active 927349 05 Problem RLS (restless legs syndrome) G25.81 A ctive 12870633 Problem Aneurysm I72.9 Active 77961367 ALLERGIES No Information ENCOUNTERS Encounter Location Date Diagnosis [place] [address] [address] 27 Oct, 2019 [place] [address] [address] October, [place] [address] [address] October, Seizure disorder G40.909 and Tremor, hereditary, benign G25.0 [place] [address] [address] 22 Sep, 2019 Primary insomnia F51.01 ; Ot her chronic pain G89.29 and Pain in right shoulder M25.511 [place] [address] [address] 08 Sep, 2019 Bilious vomiting with nausea R11.14 [facility] [place] [address] [address] 07 Aug, 2019 Influenza A J10.1 [place] [address] [address] Aug, [place] [address] [address] Aug, Tinea pedis of both feet B35 .3 and Migraine with aura and without status migrainosus, not intractable G43.109 [place] [address] [address] Jul, [facility] [address] [address] 19 Jul, 2019 Rib pain on left side R07.81 [place] [address] [address] 10 Jul, 2019 Seizure disorder G40.909 and Aneurysm I72.9 [facility] [place] [address] [facility] [id number] [address] [place] [address] Jul, [facility] [place] [address] [facility] [id number] [address] [place] [address] Jul, Seizure disorder G40.909 ; A neurysm I72.9 ; Migraine with aura and without status migrainosus, not intractable G43.109 and History of hypokalemia Z86.39 [facility] [place] [address] [facility] [id number] [address] [place] [address] Jul, [facility] [place] [address] [facility] [id number] [address] [place] [address] Jun, [place] [address] [facility] [id number] [address] [place] [address] Jun, Seizures R56.9 ; Migraine wi th aura and without status migrainosus, not intractable G43.109 ; Other chronic pain G89.29 and Pain in right shoulder M25.511 [facility], [place] [address] [facility] [id number] [address] [place] [address] Jun, [place] [address] [facility] [id number] [address] [place] [address] May, Primary insomnia F51.01 ; In tractable chronic migraine without aura and with status migrainosus G43.711 and Aneurysm I72.9 [place] [address] [facility] [id number] [address] [place] [address] Apr, RLS (restless legs syndrome) G25.81 and Mood disorder F39 [facility] [place] [address] [facility] [id number] [address] [place] [address] Apr, [place] [address] [place] [id number] [place] [address] Mar, Other chronic pain G89.29 an d Pain in right shoulder M25.511 [place] [address] [place] [id number] [place] [address] Mar, Acute left ankle pain M25.57 2 [facility] [place] [address] [place] [id number] [place] [address] Mar, [facility] [place] [address] [place] [id number] [place] [address] Mar, Acute left ankle pain M25.57 2 [facility] [place] [address] [place] [id number] [place] [address] Mar, Major depressive disorder, r ecurrent episode, moderate F33.1 [place] [address] [place] [id number] [place] [address] Mar, Major depressive disorder, r ecurrent episode, moderate F33.1 ; Lumbago with sciatica, left side M54.42 and Lumbago with sciatica, right side M54.41 [place] [address] [address] Mar, [facility] [place] [address] [place] [id number] [place] [address] Mar, [facility] [place] [address] [address] Mar, Major depressive disorder, r ecurrent episode, moderate F33.1 ; Lumbago with sciatica, left side M54.42 and Lumbago with sciatica, right side M54.41 [facility] [place] [address] [place] [id number] [place] [address] Feb, Viral gastroenteritis A08.4 [facility] [address] [place] [id number] [place] [address] Feb, Nausea and vomiting, intract ability of vomiting not specified, unspecified vomiting type R11.2 [facility] [place] [address] [place] [id number] [place] [address] Feb, [facility] [place] [address] [place] [id number] [address] [place] [address] Feb, [facility] [place] [address] [place] [address] Feb, C. difficile colitis A04.72 ; Mood disorder F39 ; Lumbago with sciatica, left side M54.42 ; Lumbago with sciatica, right side M54.41 and Other chronic pain G89.29 [facility] [place] [address] [address] Jan, [facility] [address] [address] Jan, Nausea & vomiting R11.2 [place] [address] [address] Dec, Irritable bowel syndrome wit h constipation K58.1 ; Other chronic pain G89.29 and Pain in right shoulder M25.511 [facility] [place] [address] [address] [place] [id number] [place] [address] Dec, Generalized abdominal pain R 10.84 and Nausea and vomiting, intractability of vomiting not specified, unspecified vomiting type R11.2 [facility] [address] [place] [id number] [place] [address] Dec, [facility] [place] [address] [place] [id number] [place] [address] Dec, Dysuria R30.0 and Irritable bowel K58.9 [facility] [id number] [place] [phone] Sep, Chronic nausea R11.0 [place] [address] [address] Sep, [place] [address] [address] Sep, Viral gastroenteritis A08.4 [facility] [address] [place] [address] Aug, Headache R51 ; Viral upper r espiratory tract infection J06.9 and Nausea R11.0 [facility] [address] [facility] [id number] [address] [place] [address] Jun, Reflux gastritis K29.60 [facility] [place] [address] [facility] [id number] [address] [place] [address] Jun, [facility] [place] [address] [facility] [id number] [address] [place] [address] May, [facility] [place] [address] [facility] [id number] [address] [place] [address] May, [facility] [place] [address] [facility] [id number] [address] [place] [address] Apr, Bowel habit changes R19.4 an d Acute cystitis without hematuria N30.00 [facility] [place] [address] [facility] [id number] [address] [place] [address] Apr, Pain in right shoulder M25.5 11 [facility] [place] [address] [facility] [id number] [address] [place] [address] Apr, [facility] [place] [address] [facility] [id number] [address] [place] [address] Mar, [facility] [place] [address] [facility] [id number] [address] [place] [address] Mar, [facility] [place] [address] [facility] [id number] [address] [place] [address] Mar, [facility] [place] [address] [facility] [id number] [address] [place] [address] Mar, [facility] [place] [address] [facility] [id number] [address] [place] [address] 14 Feb, 2018 [facility] [place] [address] [facility] [id number] [address] [place] [address] 10 Feb, 2018 [facility] [place] [address] [facility] [id number] [address] [place] [phone] Feb, [facility] [place] [address] [facility] [id number] [address] [place] [phone] Jan, [facility] [place] [address] [facility] [id number] [address] [place] [address] Dec, [facility] [place] [address] [facility] [id number] [address] [place] [address] Dec, Other chronic pain G89.29 ; Pain in right shoulder M25.511 and Liver enzyme elevation R74.8 [facility] [place] [address] [facility] [id number] [address] [place] [address] Nov, Other chronic pain G89.29 an d Pain in right shoulder M25.511 [facility] [place] [address] [facility] [id number] [address] [place] [address] October, [facility] [address] [facility] [id number] [address] [place] [address] October, Right shoulder pain, unspeci fied chronicity M25.511 [facility] [place] [address] [facility] [id number] [address] [place] [address] Aug, Elevated liver enzymes R74.8 and Hyperlipidemia LDL goal <100 E78.5 [facility] [place] [address] [facility] [id number] [address] [place] [phone] Aug, [facility] [place] [address] [place] [id number] [place] [address] Jul, [facility] [place] [address] [facility] [id number] [address] [place] [address] Jul, Intractable chronic migraine without aura and with status migrainosus G43.711 ; Fever, unspecified fever cause R50.9 and Elevated liver enzymes R74.8 [facility] [place] [address] [facility] [id number] [address] [place] [address] Jun, Difficulty urinating R39.198 and Moderate persistent asthma with exacerbation J45.41 [place] [address] [address] Jun, [facility] [place] [address] [address] Jun, Moderate persistent asthma w ith exacerbation J45.41 [facility] [place] [address] [place] [id number] [place] [address] May, Elevated liver enzymes R74.8 and Hyperlipidemia LDL goal <100 E78.5 [place] [address] [address] May, Elevated lipids E78.5 [place] [address] [address] Apr, Elevated liver enzymes R74.8 [place] [address] [address] Apr, Elevated liver enzymes R74.8 [place] [address] [address] Apr, Superior glenoid labrum lesi on of right shoulder, subsequent encounter S43.431D [place] [address] [address] Apr, Hypokalemia E87.6 ; Major de pressive disorder, recurrent episode, moderate F33.1 ; Other abnormalities of breathing R06.89 and Dyspnea, unspecified R06.00 [facility] [address] [place] [id number] [address] [place] [address] Mar, Moderate persistent asthma w ithout complication J45.40 [facility] [place] [address] [address] Mar, Impingement syndrome of righ t shoulder M75.41 [facility] [place] [address] [place] [id number] [address] [place] [address] Jan, [place] [address] [address] Jan, Chronic migraine without aur a with status migrainosus, not intractable G43.701 ; Essential hypertension I10 ; Irritable bowel K58.9 ; Primary insomnia F51.01 and Hypokalemia E87.6 [facility] [place] [address] [id number] [address] [place] [address] Dec, [facility] [place] [address] [id number] [address] [place] [address] Dec, Pain in right shoulder M25.5 11 [facility] [place] [address] [id number] [address] [place] [address] Dec, Essential hypertension I10 [facility] [place] [address] [id number] [address] [place] [address] Dec, [facility] [place] [address] [id number] [address] [place] [phone] Nov, Essential hypertension I10 [facility] [place] [address] [id number] [address] [place] [address] Nov, Pain in right shoulder M25.5 11 [facility] [place] [address] [id number] [address] [place] [address] Nov, Pain in right shoulder M25.5 11 [facility] [place] [address] [id number] [address] [place] [address] October, [facility] [place] [address] [id number] [address] [place] [address] October, Pain in right shoulder M25.5 11 [facility] [place] [address] [id number] [address] [place] [address] Sep, Arm pain, right M79.601 [facility] [place] [address] [id number] [address] [place] [address] Sep, [facility] [place] [address] [id number] [address] [place] [address] Sep, Abnormal glucose R73.09 and Elevated lipids E78.5 [place] [address] [facility] [id number] [address] [place] [address] 17 Sep, 2016 Abnormal glucose R73.09 and Elevated lipids E78.5 [place] [address] [facility] [id number] [address] [place] [address] 31 Aug, 2016 [place] [address] [place] [id number] [place] [address] Aug, [place] [address] [place] [id number] [place] [address] Aug, [place] [address] [place] [id number] [place] [address] Aug, Constipation by delayed colo reny transit K59.01 ; Hypokalemia E87.6 ; Irritable bowel K58.9 ; Essential hypertension I10 ; Pain in right shoulder M25.511 ; Seizure disorder G40.909 and Screening for lipid disorders Z13.220 [place] [address] [address] Jul, Other chronic pain G89.29 an d Pain in right shoulder M25.511 [place] [address] [address] 14 Jul, 2016 Biceps muscle strain, right, subsequent encounter S46.111D [facility] [address] [facility] [id number] [address] [place] [address] 08 Jul, 2016 Arm pain, right M79.601 [place] [address] [place] [id number] [place] [address] Jun, [place] [address] [address] Jun, Acute non-recurrent frontal sinusitis J01.10 [place] [address] [place] [id number] [place] [address] 14 May, 2016 Generalized abdominal pain R 10.84 ; Urinary tract infection without hematuria, site unspecified N39.0 ; Hypokalemia E87.6 ; Essential hypertension I10 ; Screening for lipid disorders Z13.220 ; Seizure R56.9 and Low back pain M54.5 [place] [address] [address] Apr, [facility] [address] [place] [id number] [address] [place] [address] Feb, [facility] [place] [address] [address] Jan, [place] [address] [address] Dec, Constipation by delayed colo reny transit K59.01 ; Hypokalemia E87.6 ; Irritable bowel K58.9 and Nausea R11.0 [facility] [address] [address] Dec, Generalized abdominal pain R 10.84 [place] [address] [address] Nov, [facility] [address] [address] Aug, Acute bronchitis J20.9 [place] [address] [place] [id number] [place] [address] Aug, [place] [address] [address] 08 Aug, 2015 Low back pain M54.5 ; Hypoka lemia E87.6 ; Chronic migraine without aura with status migrainosus, not intractable G43.701 ; Tremor, hereditary, benign G25.0 ; Irritable bowel K58.9 ; Essential hypertension I10 and Seizure R56.9 [facility] [place] [address] [place] [id number] [place] [address] Aug, [place] [address] [address] Jul, [place] [address] [address] Jul, Low back pain M54.5 ; Hypoka lemia E87.6 ; Chronic migraine without aura with status migrainosus, not intractable G43.701 ; Tremor, hereditary, benign G25.0 ; Irritable bowel K58.9 ; Essential hypertension I10 and Seizure R56.9 [place] [address] [address] Jun, Hypokalemia E87.6 [place] [address] [address] Jun, ADD (attention deficit disor dionicio) without hyperactivity F90.0 ; Generalized anxiety disorder F41.1 and Major depressive disorder, recurrent episode, moderate F33.1 [place] [address] [address] Jun, Low back pain M54.5 ; Hypoka lemia E87.6 ; Chronic migraine without aura with status migrainosus, not intractable G43.701 ; Tremor, hereditary, benign G25.0 ; Irritable bowel K58.9 ; Essential hypertension I10 and Seizure R56.9 [place] [address] [address] Jun, [place] [address] [address] May, [place] [address] [address] May, Low back pain M54.5 ; Hypoka lemia E87.6 ; Chronic migraine without aura with status migrainosus, not intractable G43.701 ; Tremor, hereditary, benign G25.0 ; Irritable bowel K58.9 ; Essential hypertension I10 ; Seizure R56.9 and Tinea capitis B35.0 [place] [address] [address] May, Low back pain M54.5 ; Hypoka lemia E87.6 ; Chronic migraine without aura with status migrainosus, not intractable G43.701 ; Tremor, hereditary, benign G25.0 ; Irritable bowel K58.9 ; Essential hypertension I10 ; Seizure R56.9 ; Otitis media, left H66.92 and Dysuria 788.1 [place] [address] [place] [id number] [place] [address] 14 May, 2015 Tooth pain K08.8 [place] [address] [place] [id number] [place] [address] May, [place] [address] [place] [id number] [place] [address] May, Low back pain M54.5 ; Hypoka lemia E87.6 ; Chronic migraine without aura with status migrainosus, not intractable G43.701 ; Tremor, hereditary, benign G25.0 ; Irritable bowel K58.9 and Essential hypertension I10 [place] [address] [place] [id number] [place] [phone] Apr, Low back pain M54.5 ; [place] lemia E87.6 ; Chronic migraine without aura with status migrainosus, not intractable G43.701 ; Tremor, hereditary, benign G25.0 and Irritable bowel K58.9 [place] [address] [place] [id number] [place] [phone] Apr, Low back pain M54.5 [place] [address] [facility] [id number] [address] [place] [phone] Mar, [place] [address] [place] [id number] [place] [phone] Mar, Irritable bowel syndrome wit h diarrhea K58.0 [place] [address] [place] [id number] [place] [phone] Mar, [place] [address] [place] [id number] [place] [phone] Feb, [facility], [place] [id number] [place] [phone] Feb, [facility], [place] [address] [place] [id number] [place] [phone] Feb, Irritable bowel syndrome 564 .1 ; Lumbago 724.2 and Cervical pain (neck) 723.1 [facility], [place] [address] [phone] Dec, Major depressive disorder, r ecurrent episode, moderate 296.32 and Generalized anxiety disorder 300.02 [facility], [place] [address] [place] [id number] [place] [phone] Nov, [facility], [place] [address] [place] [id number] [place] [phone] Nov, Major depressive disorder, r ecurrent episode, moderate 296.32 [facility], [place] [address] [place] [id number] [place] [phone] Nov, Constipation 564.00 ; Nausea & vomiting 787.01 and Abdominal pain 789.00 [facility], [place] [address] [place] [id number] [place] [phone] Nov, [facility], [place] [address] [place] [id number] [place] [phone] October, [facility], [place] [address] [id number] [place] [id number] October, [facility] [place] [address] [id number] [address] [place] [id number] October, [facility] [place] [address] [id number] [address] [place] [id number] October, [facility] [place] [address] [id number] [address] [place] [id number] Sep, Dysuria 788.1 [facility] [place] [address] [id number] [address] [place] [id number] 30 Sep, 2014 [facility] [address] [id number] [address] [place] [address], [place] [address] 30 Sep, 2014 [facility] [address] [id number] [address] [place] [address], [place] [address] 14 Sep, 2014 [facility] [address] [id number] [address] [place] [address], [place] [address] Sep, [facility] [address] [id number] [address] [place] [address], [place] [address] 30 Aug, 2014 [facility] [address] [id number] [address] [place] [address], [place] [address] 30 Aug, 2014 [facility] [address] [id number] [address] [place] [address], [place] [address] Aug, [facility] [address] [id number] [address] [place] [address], [place] [address] Aug, [facility] [address] [id number] [address] [place] [address], [place] [address] Aug, [facility] [address] [id number] [address] [place] [address], [place] [address] Aug, [facility] [address] [id number] [address] [place] [address], [place] [address] Aug, [facility] [address] [id number] [address] [place] [address], [place] [address] Aug, [facility] [address] [id number] [address] [place] [address], [place] [address] Aug, [facility] [address] [id number] [address] [place] [address], [place] [address] Aug, [facility] [address] [id number] [address] [place] [address], [place] [address] Jun, [facility] [address] [id number] [address] [place] [address], [place] [address] Jun, [facility] [address] [id number] [address] [place] [address], [place] [address] Jun, [facility] [address] [id number] [address] [place] [address], [place] [address] Jun, [facility] [address] [id number] [address] [place] [address], [place] [address] May, [facility] [address] [id number] [address] [place] [address], [place] [address] May, [facility] [address] [id number] [address] [place] [address], [place] [address] May, [facility] [address] [id number] [address] [place] [address], [place] [address] May, [facility] [address] [id number] [address] [place] [address], [place] [address] May, [facility] [address] [id number] [address] [place] [address], [place] [address] May, [facility] [address] [id number] [address] [place] [address], [place] [address] May, [facility] [address] [id number] [address] [place] [address], [place] [address] May, [facility] [address] [id number] [address] [place] [address], [place] [address] Mar, [facility] [address] [id number] [address] [place] [address], [place] [address] Mar, [facility] [address] [id number] [address] [place] [address], [place] [address] Mar, [facility] [address] [id number] [address] [place] [address], [place] [address] Mar, [facility] [address] [id number] [address] [place] [address], [place] [address] Mar, [facility] [address] [id number] [address] [place] [address], [place] [address] Mar, [facility] [address] [id number] [address] [place] [address], [place] [address] Mar, [facility] [address] [id number] [address] [place] [address], [place] [address] Mar, [facility] [address] [id number] [address] [place] [address], [place] [address] Mar, [facility] [address] [id number] [address] [place] [address], [place] [address] Mar, [facility] [address] [id number] [address] [place] [address], [place] [address] Mar, [facility] [address] [id number] [address] [place] [address], [place] [address] Mar, [facility] [address] [id number] [address] [place] [address], [place] [address] Feb, [facility] [address] [id number] [address] [place] [address], [place] [address] Feb, [facility] [address] [id number] [address] [place] [address], [place] [address] Feb, [facility] [address] [id number] [address] [place] [address], [place] [address] Feb, [facility] [address] [id number] [address] [place] [address], [place] [address] Feb, [facility] [address] [id number] [address] [place] [address], [place] [address] Feb, [facility] [address] [id number] [address] [place] [address], [place] [address] Jan, [facility] [address] [id number] [address] [place] [address], [place] [address] Jan, [facility] [address] [id number] [address] [place] [address], [place] [address] Jan, [facility] [address] [id number] [address] [place] [address], [place] [address] Jan, [facility] [address] [id number] [facility] [place] [address] Jan, [facility] [address] [id number] [address] [place] [address], [place] [address] Jan, [facility] [address] [id number] [address] [place] [address], [place] [address] Jan, [facility] [address] [id number] [address] [place] [address], [place] [address] Jan, [facility] [address] [id number] [address] [place] [address], [place] [address] Dec, [facility] [address] [id number] [address] [place] [address], [place] [address] Dec, [facility] [address] [id number] [address] [place] [address], [place] [address] Dec, [facility] [address] [id number] [address] [place] [address], [place] [address] Dec, [facility] [address] [id number] [address] [place] [address], [place] [address] Dec, [facility] [address] [id number] [address] [place] [address], [place] [address] Dec, [facility] [address] [id number] [address] [place] [address], [place] [address] Dec, [facility] [address] [id number] [address] [place] [address], [place] [address] Dec, [facility] [address] [id number] [address] [place] [address], [place] [address] October, [facility] [address] [id number] [address] [place] [address], [place] [address] October, [facility] [address] [id number] [address] [place] [address], [place] [address] Sep, [facility] [address] [id number] [facility] [place] [address] Sep, [facility] [address] [id number] [facility] [place] [address] Sep, [facility] [address] [id number] [facility] [place] [address] Sep, [facility] [address] [id number] [address] [place] [address], [place] [address] Sep, [facility] [address] [id number] [address] [place] [address], [place] [address] Sep, [facility] [address] [id number] [address] [place] [address], [place] [address] Sep, [facility] [address] [id number] [address] [place] [address], [place] [address] Sep, [facility] [address] [id number] [address] [place] [address], [place] [address] Sep, [facility] [address] [id number] [address] [place] [address], [place] [address] Sep, [facility] [address] [id number] [address] [place] [address], [place] [address] Sep, [facility] [address] [id number] [address] [place] [address], [place] [address] Sep, [facility] [address] [id number] [address] [place] [address], [place] [address] Aug, [facility] [address] [id number] [address] [place] [address], [place] [address] Aug, [facility] [address] [id number] [address] [place] [address], [place] [address] Aug, [facility] [address] [id number] [address] [place] [address], [place] [address] Jun, [facility] [address] [id number] [address] [place] [address], [place] [address] Jun, [facility] [address] [id number] [address] [place] [address], [place] [address] Jun, [facility] [address] [id number] [address] [place] [address], [place] [address] Jun, [facility] [address] [id number] [address] [place] [address], [place] [address] Jun, [facility] [address] [id number] [address] [place] [address], [place] [address] Jun, [facility] [address] [id number] [address] [place] [address], [place] [address] Jun, [facility] [address] [id number] [address] [place] [address], [place] [address] Jun, [facility] [address] [id number] [address] [place] [address], [place] [address] Jun, [facility] [address] [id number] [address] [place] [address], [place] [address] Jun, [facility] [address] [id number] [address] [place] [address], [place] [address] May, [facility] [address] [id number] [address] [place] [address], [place] [address] May, [facility] [address] [id number] [address] [place] [address], [place] [address] May, [facility] [address] [id number] [address] [place] [address] May, [facility] [address] [id number] [address] [place] [address], [place] [address] Apr, [facility] [address] [id number] [address] [place] [address], [place] [address] Apr, [facility] [address] [id number] [address] [place] [address], [place] [address] Apr, [facility] [address] [id number] [address] [place] [address] Apr, [facility] [address] [id number] [address] [place] [address], [place] [address] Apr, [facility] [address] [id number] [address] [place] [address] Apr, [facility] [address] [id number] [address] [place] [address], [place] [address] Apr, [facility] [address] [id number] [address] [place] [address], [place] [address] Apr, [facility] [address] [id number] [address] [place] [address], [place] [address] Mar, [facility] [address] [id number] [address] [place] [address], [place] [address] Mar, [facility] [address] [id number] [address] [place] [id number] Mar, [facility] [address] [id number] [address] [place] [address], [place] [address] Mar, [facility] [address] [id number] [address] [place] [address], [place] [address] Mar, [facility] [address] [id number] [address] [place] [id number] Feb, [facility] [address] [id number] [address] [place] [address], [place] [address] Feb, [facility] [address] [id number] [address] [place] [address] Feb, [facility] [address] [id number] [address] [place] [address], [place] [address] Feb, [facility] [address] [id number] [address] [place] [address], [place] [address] Feb, [facility] [address] [id number] [address] [place] [address], [place] [address] Jan, [facility] [address] [id number] [address] [place] [address], [place] [address] Jan, [facility] [address] [id number] [address] [place] [address], [place] [address] Nov, [facility] [address] [id number] [address] [place] [address], [place] [address] Nov, [facility] [address] [id number] [address] [place] [address], [place] [address] Nov, [facility] [address] [id number] [address] [place] [address], [place] [address] Nov, [facility] [address] [id number] [address] [place] [address], [place] [address] October, [facility] [address] [id number] [address] [place] [address], [place] [address] Sep, [facility] [address] [id number] [address] [place] [address], [place] [address] Aug, [facility] [address] [id number] [address] [place] [address], [place] [address] Aug, [facility] [address] [id number] [address] [place] [address], [place] [address] Aug, [facility] [address] [id number] [address] [place] [address], [place] [address] Aug, [facility] [address] [id number] [address] [place] [address], [place] [address] Jul, [facility] [address] [id number] [address] [place] [address], [place] [address] Jun, [facility] [address] [id number] [address] [place] [address], [place] [address] Jun, [facility] [address] [id number] [address] [place] [address], [place] [address] 05 May, 2012 [facility] [address] [id number] [address] [place] [address], [place] [address] May, [facility] [address] [id number] [address] [place] [id number] Mar, [facility] [address] [id number] [address] [place] [id number] Mar, [facility] [address] [id number] [address] [place] [id number] Mar, [facility] [address] [id number] [address] [place] [id number] Mar, [facility] [address] [id number] [address] [place] [id number] Mar, [facility] [address] [id number] [address] [place] [address] Mar, [facility] [address] [id number] [address] [place] [id number] Mar, [facility] [address] [id number] [address] [place] [address] Mar, [facility] [address] [id number] [address] [place] [id number] Mar, [facility] [address] [id number] [address] [place] [id number] Mar, [facility] [address] [id number] [address] [place] [id number] Mar, [facility] [address] [id number] [address] [place] [id number] Mar, [facility] [address] [id number] [address] [place] [address] Mar, [facility] [address] [id number] [address] [place] [address] 15 Mar, 2012 [facility] [address] [id number] [address] [place] [id number] 15 Mar, 2012 [facility] [address] [id number] [address] [place] [address], [place] [address] 15 Mar, 2012 [facility] [address] [id number] [address] [place] [address], [place] [address] 15 Mar, 2012 [facility] [address] [id number] [address] [place] [address], [place] [address] 11 Mar, 2012 [facility] [address] [id number] [address] [place] [address], [place] [address] Mar, [facility] [address] [id number] [address] [place] [address], [place] [address] 08 Mar, 2012 [facility] [address] [id number] [address] [place] [address], [place] [address] 08 Mar, 2012 [facility] [address] [id number] [address] [place] [address], [place] [address] 03 Mar, 2012 [facility] [address] [id number] [address] [place] [address], [place] [address] Mar, [facility] [address] [id number] [address] [place] [address], [place] [address] 19 Sep, 2011 [facility] [address] [id number] [address] [place] [address] [address] 18 Sep2011 [facility] [address] [id number] [address] [place] [address], [place] [address] 17 Sep, 2011 [facility] [address] [id number] [address] [place] [address], [place] [address] 14 Sep, 2011 [facility] [address] [id number] [address] [place] [address], [place] [address] 14 Sep, 2011 [facility] [address] [id number] [address] [place] [address], [place] [address] 12 Sep2011 [facility] [address] [id number] [address] [place] [address], [place] [address] 10 Feb, 2011 [facility] [address] [id number] [address] [place] [address], [place] [id number] Jan, [facility] [address] [id number] [address] [place] [address], [place] [id number] Jan, [facility] [address] [id number] [address] [place] [address], [place] [phone] Jan, [facility] [address] [id number] [address] [place] [address], [place] [phone] Jan, [facility] [address] [id number] [address] [place] [address], [place] [id number] Jan, [facility] [address] [id number] [address] [place] [address], [place] [address] Jan, [facility] [address] [id number] [address] [place] [address], [place] [id number] Jan, [facility] [address] [id number] [address] [place] [address], [place] [id number] Jan, [facility] [address] [id number] [address] [place] [address], [place] [id number] Jan, [facility] [address] [id number] [address] [place] [address], [place] [id number] Jan, [facility] [address] [id number] [address] [place] [address], [place] [id number] Dec, [facility] [address] [id number] [address] [place] [address], [place] [id number] Dec, [facility] [address] [id number] [address] [place] [address], [place] [id number] Dec, [facility] [address] [id number] [address] [place] [address], [place] [phone] Dec, [facility] [address] [id number] [address] [place] [address], [place] [id number] Dec, [facility] [address] [id number] [address] [place] [address], [place] [id number] Dec, [facility] [address] [id number] [address] [place] [id number] 16 Dec, 2011 [facility] [address] [id number] [address] [place] [address], [place] [id number] 14 Dec, 2011 [facility] [address] [id number] [address] [place] [phone] 12 Dec, 2011 [facility] [address] [id number] [address] [place] [address], [place] [id number] Dec, [facility] [address] [id number] [address] [place] [phone] 06 Dec, 2011 [facility] [address] [id number] [address] [place] [address], [place] [id number] 29 Nov, 2011 [facility] [address] [id number] [address] [place] [address], [place] [id number] 27 Nov, 2011 [facility] [address] [id number] [address] [place] [phone] 25 Nov, 2011 [facility] [address] [id number] [address] [place] [phone] 23 Nov, 2011 [facility] [address] [id number] [address] [place] [phone] Nov, [facility] [address] [id number] [address] [place] [id number] 20 Nov, 2011 [facility] [address] [id number] [address] [place] [phone] 13 Nov, 2011 [facility] [address] [id number] [address] [place] [id number] 13 Nov, 2011 [facility] [address] [id number] [address] [place] [phone] Nov, [facility] [address] [id number] [address] [place] [id number] 05 Nov, 2011 [facility] [address] [id number] [address] [place] [id number] October, IMMUNIZATIONS No Known Immunizations SOCIAL HISTORY [...]
--- OUTSIDE RECORDS SUMMARY | 2019-11-15 09:37 | XMS REPORT ---
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 Phone [employer] Unavailable PROBLEMS Type Condition ICD9-CM Code [id number] Code Onset Dates Condition S tatus SNOMED Code Problem Elevated liver enzymes R74.8 Active 575776925 Problem Abnormal glucose R73.09 Active 102 174649 Problem Major depressive disorder, recurrent episode, moderate F33.1 Active 464774109 Problem Hyperlipidemia LDL goal <100 E78.5 A ctive 15097284 Problem Other chronic pain G89.29 Active 8 4847523 Problem Intractable chronic migraine without aura and wi th status migrainosus G43.711 Active 035130853 Problem Essential hypertension I10 Active 62346110 Problem Hypokalemia E87.6 Active 49719361 Problem Other chronic pain G89.29 Active 8 0352973 Problem 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 Active 33401018 Problem Primary insomnia F51.01 Active 397 2004 Problem Seizure disorder G40.909 Active 128 147042 Problem Moderate persistent asthma with exacerbation J45.4 1 Active 362442209 Problem Moderate persistent asthma without complication J4 5.40 Active 178470286 Problem Reflux gastritis K29.60 Active 729 69242 Problem Irritable bowel syndrome with constipation K58.1 Active 815393894 Problem Lumbago with sciatica, left side M54.42 Active 909901224 Problem Migraine with aura and without status migrainosu s, not intractable G43.109 Active 1503776 Problem Irritable bowel K58.9 Active 1074 3008 Problem History of hypokalemia Z86.39 Active 783060961 Problem Tremor, hereditary, benign G25.0 Act caitlin 701923993 Problem Chronic migraine without aura with statu s migrainosus, not intractable G43.701 Active 198673736 Problem Lumbago with sciatica, right side M54.41 Active 702292926510308 Problem Mood disorder F39 Active 825723 05 Problem RLS (restless legs syndrome) G25.81 A ctive 10879560 Problem Aneurysm I72.9 Active 04376566 ALLERGIES No Information ENCOUNTERS Encounter Location Date Diagnosis [place] [address] [address] October, [place] [address] [address] October, [place] [address] [address] October, Seizure disorder G40.909 and Tremor, hereditary, benign G25.0 [place] [address] [address] 22 Sep, 2019 Primary insomnia F51.01 ; Ot her chronic pain G89.29 and Pain in right shoulder M25.511 [place] [address] [address] 08 Sep, 2019 Bilious vomiting with nausea R11.14 [facility] [place] [address] [address] 07 Aug, 2019 Influenza A J10.1 [place] [address] [address] Aug, [place] [address] [address] Aug, Tinea pedis of both feet B35 .3 and Migraine with aura and without status migrainosus, not intractable G43.109 [place] [address] [address] Jul, [facility] [address] [address] 19 Jul, 2019 Rib pain on left side R07.81 [place] [address] [address] 10 Jul, 2019 Seizure disorder G40.909 and Aneurysm I72.9 [facility] [address] [facility] [id number] [address] [place] [address] Jul, [facility] [address] [facility] [id number] [address] [place] [address] Jul, Seizure disorder G40.909 ; A neurysm I72.9 ; Migraine with aura and without status migrainosus, not intractable G43.109 and History of hypokalemia Z86.39 [facility] [address] [facility] [id number] [address] [place] [address] Jul, [facility] [address] [facility] [id number] [address] [place] [address] Jun, [place] [address] [facility] [id number] [address] [place] [address] Jun, Seizures R56.9 ; Migraine wi th aura and without status migrainosus, not intractable G43.109 ; Other chronic pain G89.29 and Pain in right shoulder M25.511 [facility] [address] [facility] [id number] [address] [place] [address] Jun, [facility] [address] [facility] [id number] [address] [place] [address] May, Primary insomnia F51.01 ; In tractable chronic migraine without aura and with status migrainosus G43.711 and Aneurysm I72.9 [facility] [address] [facility] [id number] [address] [place] [address] Apr, RLS (restless legs syndrome) G25.81 and Mood disorder F39 [facility] [address] [facility] [id number] [address] [place] [address] Apr, [place] [address] [address] [facility] [id number] [address] [place] [address] Mar, Other chronic pain G89.29 an d Pain in right shoulder M25.511 [place] [address] [address] [facility] [id number] [address] [place] [address] Mar, Acute left ankle pain M25.57 2 [facility] [address] [facility] [id number] [address] [place] [address] Mar, [facility] [address] [facility] [id number] [address] [place] [address] Mar, Acute left ankle pain M25.57 2 [facility] [address] [facility] [id number] [address] [place] [address] Mar, Major depressive disorder, r ecurrent episode, moderate F33.1 [place] [address] [address] [facility] [id number] [address] [place] [address] Mar, Major depressive disorder, r ecurrent episode, moderate F33.1 ; Lumbago with sciatica, left side M54.42 and Lumbago with sciatica, right side M54.41 [facility] [address] [place] [id number] [address] [place] [address] Mar, [facility] [address] [facility] [id number] [address] [place] [address] Mar, [facility] [address] [place] [id number] [address] [place] [address] Mar, Major depressive disorder, r ecurrent episode, moderate F33.1 ; Lumbago with sciatica, left side M54.42 and Lumbago with sciatica, right side M54.41 [facility] [address] [place] [id number] [address] [place] [address] Feb, Viral gastroenteritis A08.4 [facility] [address] [facility] [id number] [address] [place] [address] Feb, Nausea and vomiting, intract ability of vomiting not specified, unspecified vomiting type R11.2 [facility] [address] [place] [id number] [address] [place] [address] Feb, [facility] [address] [place] [id number] [address] [place] [address] Feb, [facility] [address] [address] Feb, C. difficile colitis A04.72 ; Mood disorder F39 ; Lumbago with sciatica, left side M54.42 ; Lumbago with sciatica, right side M54.41 and Other chronic pain G89.29 [place] [address] [address] Jan, [facility] [address] [address] Jan, Nausea & vomiting R11.2 [place] [address] [address] Dec, Irritable bowel syndrome wit h constipation K58.1 ; Other chronic pain G89.29 and Pain in right shoulder M25.511 [facility] [address] [address] Dec, Generalized abdominal pain R 10.84 and Nausea and vomiting, intractability of vomiting not specified, unspecified vomiting type R11.2 [facility] [address] [place] [id number] [address] [place] [address] Dec, [facility] [address] [place] [id number] [address] [place] [address] Dec, Dysuria R30.0 and Irritable bowel K58.9 [facility] [id number] [place] [phone] Sep, Chronic nausea R11.0 [place] [address] [address] Sep, [place] [address] [address] Sep, Viral gastroenteritis A08.4 [facility] [address] [address] Aug, Headache R51 ; Viral upper r espiratory tract infection J06.9 and Nausea R11.0 [facility] [address] [id number] [address] [place] [phone] Jun, Reflux gastritis K29.60 [facility] [address] [id number] [address] [place] [address] Jun, [facility] [address] [id number] [address] [place] [id number] May, [facility] [address] [id number] [address] [place] [address] May, [facility] [address] [facility] [id number] [address] [place] [id number] Apr, Bowel habit changes R19.4 an d Acute cystitis without hematuria N30.00 [facility] [address] [facility] [id number] [address] [place] [address] Apr, Pain in right shoulder M25.5 11 [facility] [address] [facility] [id number] [address] [place] [id number] Apr, [facility] [address] [facility] [id number] [address] [place] [id number] Mar, [facility] [address] [facility] [id number] [address] [place] [address] Mar, [facility] [address] [facility] [id number] [address] [place] [address] Mar, [facility] [address] [facility] [id number] [address] [place] [address] Mar, [facility] [address] [facility] [id number] [address] [place] [address] 14 Feb, 2018 [facility] [address] [facility] [id number] [address] [place] [id number] 10 Feb, 2018 [facility] [address] [facility] [id number] [address] [place] [id number] Feb, [facility] [address] [facility] [id number] [address] [place] [phone] Jan, [facility] [address] [facility] [id number] [address] [place] [phone] Dec, [facility] [address] [facility] [id number] [address] [place] [phone] Dec, Other chronic pain G89.29 ; Pain in right shoulder M25.511 and Liver enzyme elevation R74.8 [facility] [address] [facility] [id number] [address] [place] [address] Nov, Other chronic pain G89.29 an d Pain in right shoulder M25.511 [facility] [address] [facility] [id number] [address] [place] [address] October, [facility] [address] [facility] [id number] [address] [place] [address] October, Right shoulder pain, unspeci fied chronicity M25.511 [facility] [address] [facility] [id number] [address] [place] [address] Aug, Elevated liver enzymes R74.8 and Hyperlipidemia LDL goal <100 E78.5 [place] [address] [address] [facility] [id number] [address] [place] [address] Aug, [facility] [address] [facility] [id number] [address] [place] [address] Jul, [facility] [address] [facility] [id number] [address] [place] [address] Jul, Intractable chronic migraine without aura and with status migrainosus G43.711 ; Fever, unspecified fever cause R50.9 and Elevated liver enzymes R74.8 [facility] [address] [facility] [id number] [address] [place] [address] Jun, Difficulty urinating R39.198 and Moderate persistent asthma with exacerbation J45.41 [facility] [address] [address] Jun, [facility] [address] [address] Jun, Moderate persistent asthma w ith exacerbation J45.41 [facility] [address] [address] May, Elevated liver enzymes R74.8 and Hyperlipidemia LDL goal <100 E78.5 [place] [address] [address] May, Elevated lipids E78.5 [place] [address] [address] Apr, Elevated liver enzymes R74.8 [place] [address] [address] Apr, Elevated liver enzymes R74.8 [place] [address] [address] Apr, Superior glenoid labrum lesi on of right shoulder, subsequent encounter S43.431D [place] [address] [address] Apr, Hypokalemia E87.6 ; Major de pressive disorder, recurrent episode, moderate F33.1 ; Other abnormalities of breathing R06.89 and Dyspnea, unspecified R06.00 [facility] [address] [place] [id number] [address] [place] [address] Mar, Moderate persistent asthma w ithout complication J45.40 [facility] [address] [address] Mar, Impingement syndrome of righ t shoulder M75.41 [facility] [address] [place] [id number] [address] [place] [address] Jan, [facility] [address] [address] Jan, Chronic migraine without aur a with status migrainosus, not intractable G43.701 ; Essential hypertension I10 ; Irritable bowel K58.9 ; Primary insomnia F51.01 and Hypokalemia E87.6 [facility] [address] [id number] [address] [place] [address] Dec, [facility] [address] [id number] [address] [place] [address] Dec, Pain in right shoulder M25.5 11 [facility] [address] [id number] [address] [place] [id number] Dec, Essential hypertension I10 [facility] [address] [id number] [address] [place] [address] Dec, [facility] [address] [id number] [address] [place] [address] Nov, Essential hypertension I10 [facility] [address] [id number] [address] [place] [id number] Nov, Pain in right shoulder M25.5 11 [facility] [address] [id number] [address] [place] [id number] Nov, Pain in right shoulder M25.5 11 [facility] [address] [id number] [address] [place] [address] October, [facility] [address] [id number] [address] [place] [address] October, Pain in right shoulder M25.5 11 [facility] [address] [id number] [address] [place] [address] Sep, Arm pain, right M79.601 [facility] [address] [id number] [address] [place] [address] Sep, [facility] [address] [id number] [address] [place] [address] Sep, Abnormal glucose R73.09 and Elevated lipids E78.5 [place] [address] [place] [id number] [address] [place] [address] 17 Sep, 2016 Abnormal glucose R73.09 and Elevated lipids E78.5 [place] [address] [place] [id number] [address] [place] [address] Aug, [place] [address] [address] Aug, [place] [address] [address] Aug, [place] [address] [address] Aug, Constipation by delayed colo reny transit K59.01 ; Hypokalemia E87.6 ; Irritable bowel K58.9 ; Essential hypertension I10 ; Pain in right shoulder M25.511 ; Seizure disorder G40.909 and Screening for lipid disorders Z13.220 [place] [address] [address] Jul, Other chronic pain G89.29 an d Pain in right shoulder M25.511 [place] [address] [address] 14 Jul, 2016 Biceps muscle strain, right, subsequent encounter S46.111D [facility] [address] [place] [id number] [address] [place] [address] 08 Jul, 2016 Arm pain, right M79.601 [place] [address] [place] [id number] [address] [place] [address] Jun, [place] [address] [address] Jun, Acute non-recurrent frontal sinusitis J01.10 [place] [address] [place] [id number] [address] [place] [address] 14 May, 2016 Generalized abdominal pain R 10.84 ; Urinary tract infection without hematuria, site unspecified N39.0 ; Hypokalemia E87.6 ; Essential hypertension I10 ; Screening for lipid disorders Z13.220 ; Seizure R56.9 and Low back pain M54.5 [place] [id number] [place] [id number] [place] [address] Apr, [facility] [address] [place] [id number] [place] [address] Feb, [facility] [address] [address] Jan, [facility] [address] [address] Dec, Constipation by delayed colo reny transit K59.01 ; Hypokalemia E87.6 ; Irritable bowel K58.9 and Nausea R11.0 [facility] [address] [address] Dec, Generalized abdominal pain R 10.84 [place] [address] [address] Nov, [facility] [address] [address] Aug, Acute bronchitis J20.9 [place] [address] [address] Aug, [facility] [address] [address] 08 Aug, 2015 Low back pain M54.5 ; Hypoka lemia E87.6 ; Chronic migraine without aura with status migrainosus, not intractable G43.701 ; Tremor, hereditary, benign G25.0 ; Irritable bowel K58.9 ; Essential hypertension I10 and Seizure R56.9 [place] [address] [place] [id number] [address] [place] [address] 07 Aug, 2015 [place] [address] [address] Jul, [place] [address] [address] 03 Jul, 2015 Low back pain M54.5 ; Hypoka lemia E87.6 ; Chronic migraine without aura with status migrainosus, not intractable G43.701 ; Tremor, hereditary, benign G25.0 ; Irritable bowel K58.9 ; Essential hypertension I10 and Seizure R56.9 [place] [address] [address] Jun, Hypokalemia E87.6 [place] [address] [address] Jun, ADD (attention deficit disor dionicio) without hyperactivity F90.0 ; Generalized anxiety disorder F41.1 and Major depressive disorder, recurrent episode, moderate F33.1 [place] [address] [address] Jun, Low back pain M54.5 ; Hypoka lemia E87.6 ; Chronic migraine without aura with status migrainosus, not intractable G43.701 ; Tremor, hereditary, benign G25.0 ; Irritable bowel K58.9 ; Essential hypertension I10 and Seizure R56.9 [place] [address] [address] Jun, [place] [address] [address] May, [place] [address] [address] 30 May, 2015 Low back pain M54.5 ; Hypoka lemia E87.6 ; Chronic migraine without aura with status migrainosus, not intractable G43.701 ; Tremor, hereditary, benign G25.0 ; Irritable bowel K58.9 ; Essential hypertension I10 ; Seizure R56.9 and Tinea capitis B35.0 [place] [address] [address] May, Low back pain M54.5 ; Hypoka lemia E87.6 ; Chronic migraine without aura with status migrainosus, not intractable G43.701 ; Tremor, hereditary, benign G25.0 ; Irritable bowel K58.9 ; Essential hypertension I10 ; Seizure R56.9 ; Otitis media, left H66.92 and Dysuria 788.1 [place] [address] [place] [id number] [address] [place] [address] May, Tooth pain K08.8 [place] [address] [place] [id number] [address] [place] [address] May, [place] [address] [place] [id number] [place] [address] May, Low back pain M54.5 ; Hypoka lemia E87.6 ; Chronic migraine without aura with status migrainosus, not intractable G43.701 ; Tremor, hereditary, benign G25.0 ; Irritable bowel K58.9 and Essential hypertension I10 [place] [address] [place] [id number] [address] [place] [address] Apr, Low back pain M54.5 ; Hypoka lemia E87.6 ; Chronic migraine without aura with status migrainosus, not intractable G43.701 ; Tremor, hereditary, benign G25.0 and Irritable bowel K58.9 [place] [address] [facility] [id number] [address] [place] [address] Apr, Low back pain M54.5 [place] [address] [facility] [id number] [address] [place] [address] Mar, [place] [address] [place] [id number] [address] [place] [id number] Mar, Irritable bowel syndrome wit h diarrhea K58.0 [facility] [address] [place] [id number] [address] [place] [id number] Mar, [place] [address] [place] [id number] [address] [place] [address] Feb, [facility] [address] [facility] [id number] [address] [place] [id number] Feb, [facility] [id number] [place] [id number] Feb, Irritable bowel syndrome 564 .1 ; Lumbago 724.2 and Cervical pain (neck) 723.1 [facility] [address] [place] [id number] [place] [id number] Dec, Major depressive disorder, r ecurrent episode, moderate 296.32 and Generalized anxiety disorder 300.02 [facility] [address] [place] [id number] [address] [place] [id number] Nov, [facility] [address] [place] [id number] [place] [id number] Nov, Major depressive disorder, r ecurrent episode, moderate 296.32 [facility] [id number] [place] [id number] Nov, Constipation 564.00 ; Nausea & vomiting 787.01 and Abdominal pain 789.00 [facility] [address] [place] [id number] [place] [id number] Nov, [facility] [address] [place] [id number] [place] [id number] October, [facility] [address] [place] [id number] [place] [id number] October, [facility] [address] [place] [id number] [address] [place] [address] October, [facility] [address] [id number] [address] [place] [address] October, [facility] [address] [id number] [address] [place] [address] Sep, Dysuria 788.1 [facility] [address] [id number] [address] [place] [address] 30 Sep, 2014 [facility] [address] [id number] [address] [place] [address], [place] [address] 30 Sep, 2014 [facility] [address] [id number] [address] [place] [address], [place] [address] 14 Sep, 2014 [facility] [address] [id number] [address] [place] [address], [place] [address] Sep, [facility] [address] [id number] [address] [place] [address], [place] [address] 30 Aug, 2014 [facility] [address] [id number] [address] [place] [address], [place] [address] Aug, [facility] [address] [id number] [address] [place] [address], [place] [address] Aug, [facility] [address] [id number] [address] [place] [address], [place] [address] Aug, [facility] [address] [id number] [address] [place] [address], [place] [address] Aug, [facility] [address] [id number] [address] [place] [address], [place] [address] Aug, [facility] [address] [id number] [address] [place] [address], [place] [address] Aug, [facility] [address] [id number] [address] [place] [address], [place] [address] Aug, [facility] [address] [id number] [address] [place] [address], [place] [address] Aug, [facility] [address] [id number] [address] [place] [address], [place] [address] Aug, [facility] [address] [id number] [address] [place] [address], [place] [address] Jun, [facility] [address] [id number] [address] [place] [address], [place] [address] Jun, [facility] [address] [id number] [address] [place] [address], [place] [address] Jun, [facility] [address] [id number] [address] [place] [address], [place] [address] Jun, [facility] [address] [id number] [address] [place] [address], [place] [address] May, [facility] [address] [id number] [address] [place] [address], [place] [address] May, [facility] [address] [id number] [address] [place] [address], [place] [address] May, [facility] [address] [id number] [address] [place] [address], [place] [address] May, [facility] [address] [id number] [address] [place] [address], [place] [address] May, [facility] [address] [id number] [address] [place] [address], [place] [address] May, [facility] [address] [id number] [address] [place] [address], [place] [address] May, [facility] [address] [id number] [address] [place] [address], [place] [address] May, [facility] [address] [id number] [address] [place] [address], [place] [address] Mar, [facility] [address] [id number] [address] [place] [address], [place] [address] Mar, [facility] [address] [id number] [address] [place] [address], [place] [address] Mar, [facility] [address] [id number] [address] [place] [address], [place] [address] Mar, [facility] [address] [id number] [address] [place] [address], [place] [address] Mar, [facility] [address] [id number] [address] [place] [address], [place] [address] Mar, [facility] [address] [id number] [address] [place] [address], [place] [address] Mar, [facility] [address] [id number] [address] [place] [address], [place] [address] Mar, [facility] [address] [id number] [address] [place] [address], [place] [address] Mar, [facility] [address] [id number] [address] [place] [address], [place] [address] Mar, [facility] [address] [id number] [address] [place] [address], [place] [address] Mar, [facility] [address] [id number] [address] [place] [address], [place] [address] Mar, [facility] [address] [id number] [address] [place] [address], [place] [address] Feb, [facility] [address] [id number] [address] [place] [address], [place] [address] Feb, [facility] [address] [id number] [address] [place] [address], [place] [address] Feb, [facility] [address] [id number] [address] [place] [address], [place] [address] Feb, [facility] [address] [id number] [address] [place] [address], [place] [address] Feb, [facility] [address] [id number] [address] [place] [address], [place] [address] Feb, [facility] [address] [id number] [address] [place] [address], [place] [address] Jan, [facility] [address] [id number] [address] [place] [address], [place] [address] Jan, [facility] [address] [id number] [address] [place] [address], [place] [address] Jan, [facility] [address] [id number] [address] [place] [address], [place] [address] Jan, [facility] [address] [id number] [address] [place] [address], [place] [address] Jan, [facility] [address] [id number] [address] [place] [address], [place] [address] Jan, [facility] [address] [id number] [address] [place] [address], [place] [address] Jan, [facility] [address] [id number] [address] [place] [address], [place] [address] Jan, [facility] [address] [id number] [address] [place] [address], [place] [address] Dec, [facility] [address] [id number] [address] [place] [address], [place] [address] Dec, [facility] [address] [id number] [address] [place] [address], [place] [address] Dec, [facility] [address] [id number] [address] [place] [address], [place] [address] Dec, [facility] [address] [id number] [address] [place] [address], [place] [address] Dec, [facility] [address] [id number] [address] [place] [address], [place] [address] Dec, [facility] [address] [id number] [address] [place] [address], [place] [address] Dec, [facility] [address] [id number] [address] [place] [address], [place] [address] Dec, [facility] [address] [id number] [address] [place] [address], [place] [address] October, [facility] [address] [id number] [address] [place] [address], [place] [address] October, [facility] [address] [id number] [address] [place] [address], [place] [address] Sep, [facility] [address] [id number] [facility] [place] [address] Sep, [facility] [address] [id number] [facility] [place] [address] Sep, [facility] [address] [id number] [facility] [place] [address] Sep, [facility] [address] [id number] [address] [place] [address], [place] [address] Sep, [facility] [address] [id number] [address] [place] [address], [place] [address] Sep, [facility] [address] [id number] [address] [place] [address], [place] [address] Sep, [facility] [address] [id number] [address] [place] [address], [place] [address] Sep, [facility] [address] [id number] [address] [place] [address], [place] [address] Sep, [facility] [address] [id number] [address] [place] [address], [place] [address] Sep, [facility] [address] [id number] [address] [place] [address], [place] [address] Sep, [facility] [address] [id number] [address] [place] [address], [place] [address] Sep, [facility] [address] [id number] [address] [place] [address], [place] [address] Aug, [facility] [address] [id number] [address] [place] [address], [place] [address] Aug, [facility] [address] [id number] [address] [place] [address], [place] [address] Aug, [facility] [address] [id number] [address] [place] [address], [place] [address] Jun, [facility] [address] [id number] [address] [place] [address], [place] [address] Jun, [facility] [address] [id number] [address] [place] [address], [place] [address] Jun, [facility] [address] [id number] [address] [place] [address], [place] [address] Jun, [facility] [address] [id number] [address] [place] [address], [place] [address] Jun, [facility] [address] [id number] [address] [place] [address], [place] [address] Jun, [facility] [address] [id number] [address] [place] [address], [place] [address] Jun, [facility] [address] [id number] [address] [place] [address], [place] [address] Jun, [facility] [address] [id number] [address] [place] [address], [place] [address] Jun, [facility] [address] [id number] [address] [place] [address], [place] [address] Jun, [facility] [address] [id number] [address] [place] [address], [place] [address] May, [facility] [address] [id number] [address] [place] [address], [place] [address] May, [facility] [address] [id number] [address] [place] [address], [place] [address] May, [facility] [address] [id number] [address] [place] [address], [place] [address] May, [facility] [address] [id number] [address] [place] [address], [place] [address] Apr, [facility] [address] [id number] [address] [place] [address], [place] [address] Apr, [facility] [address] [id number] [address] [place] [address], [place] [address] Apr, [facility] [address] [id number] [address] [place] [address], [place] [address] Apr, [facility] [address] [id number] [address] [place] [address], [place] [address] Apr, [facility] [address] [id number] [address] [place] [address], [place] [address] Apr, [facility] [address] [id number] [address] [place] [address], [place] [address] Apr, [facility] [address] [id number] [address] [place] [address], [place] [address] Apr, [facility] [address] [id number] [address] [place] [address], [place] [address] Mar, [facility] [address] [id number] [address] [place] [address], [place] [address] Mar, [facility] [address] [id number] [address] [place] [address], [place] [address] Mar, [facility] [address] [id number] [address] [place] [address], [place] [address] Mar, [facility] [address] [id number] [address] [place] [address], [place] [address] Mar, [facility] [address] [id number] [address] [place] [address], [place] [address] Feb, [facility] [address] [id number] [address] [place] [address], [place] [address] Feb, [facility] [address] [id number] [address] [place] [address], [place] [address] Feb, [facility] [address] [id number] [address] [place] [address], [place] [address] Feb, [facility] [address] [id number] [address] [place] [address], [place] [address] Feb, [facility] [address] [id number] [address] [place] [address], [place] [address] Jan, [facility] [address] [id number] [address] [place] [address], [place] [address] Jan, [facility] [address] [id number] [address] [place] [address], [place] [address] Nov, [facility] [address] [id number] [address] [place] [address], [place] [address] Nov, [facility] [address] [id number] [address] [place] [address], [place] [address] Nov, [facility] [address] [id number] [address] [place] [address], [place] [address] Nov, [facility] [address] [id number] [address] [place] [address], [place] [address] October, [facility] [address] [id number] [address] [place] [address], [place] [address] Sep, [facility] [address] [id number] [address] [place] [address], [place] [address] Aug, [facility] [address] [id number] [address] [place] [address], [place] [address] Aug, [facility] [address] [id number] [address] [place] [address], [place] [address] Aug, [facility] [address] [id number] [address] [place] [address], [place] [address] Aug, [facility] [address] [id number] [address] [place] [address], [place] [address] Jul, [facility] [address] [id number] [address] [place] [address], [place] [address] Jun, [facility] [address] [id number] [address] [place] [address], [place] [address] Jun, [facility] [address] [id number] [address] [place] [address], [place] [address] May, [facility] [address] [id number] [address] [place] [address] May, [facility] [address] [id number] [address] [place] [id number] Mar, [facility] [address] [id number] [address] [place] [address] Mar, [facility] [address] [id number] [address] [place] [address] Mar, [facility] [address] [id number] [address] [place] [address] Mar, [facility] [address] [id number] [address] [place] [address] Mar, [facility] [address] [id number] [address] [place] [address] Mar, [facility] [address] [id number] [address] [place] [address] Mar, [facility] [address] [id number] [address] [place] [address] Mar, [facility] [address] [id number] [address] [place] [address] Mar, [facility] [address] [id number] [address] [place] [address] Mar, [facility] [address] [id number] [address] [place] [address] Mar, [facility] [address] [id number] [address] [place] [address] Mar, [facility] [address] [id number] [address] [place] [address] 17 Mar, 2012 [facility] [address] [id number] [address] [place] [address] 15 Mar, 2012 [facility] [address] [id number] [address] [place] [address] 15 Mar, 2012 [facility] [address] [id number] [address] [place] [address], [place] [address] 15 Mar, 2012 [facility] [address] [id number] [address] [place] [address], [place] [address] 15 Mar, 2012 [facility] [address] [id number] [address] [place] [address], [place] [address] 11 Mar, 2012 [facility] [address] [id number] [address] [place] [address], [place] [address] Mar, [facility] [address] [id number] [address] [place] [address], [place] [address] 08 Mar, 2012 [facility] [address] [id number] [address] [place] [address], [place] [address] 08 Mar, 2012 [facility] [address] [id number] [address] [place] [address], [place] [address] 03 Mar, 2012 [facility] [address] [id number] [address] [place] [address], [place] [address] Mar, [facility] [address] [id number] [address] [place] [address], [place] [address] 19 Sep, 2011 [facility] [address] [id number] [address] [place] [address] [address] 18 Sep2011 [facility] [address] [id number] [address] [place] [address] [address] 17 Sep2011 [facility] [address] [id number] [address] [place] [address], [place] [address] 14 Sep, 2011 [facility] [address] [id number] [address] [place] [address], [place] [address] 14 Sep, 2011 [facility] [address] [id number] [address] [place] [address], [place] [address] 12 Feb, 2012 [facility] [address] [id number] [address] [place] [address], [place] [address] 10 Feb, 2012 [facility] [address] [id number] [address] [place] [address], [place] [address] Jan, [facility] [address] [id number] [address] [place] [address], [place] [address] Jan, [facility] [address] [id number] [address] [place] [address], [place] [address] Jan, [facility] [address] [id number] [address] [place] [address], [place] [address] Jan, [facility] [address] [id number] [address] [place] [address], [place] [address] Jan, [facility] [address] [id number] [address] [place] [address], [place] [address] Jan, [facility] [address] [id number] [address] [place] [address], [place] [address] Jan, [facility] [address] [id number] [address] [place] [address], [place] [address] Jan, [facility] [address] [id number] [address] [place] [address], [place] [address] Jan, [facility] [address] [id number] [address] [place] [address], [place] [address] Jan, [facility] [address] [id number] [address] [place] [address], [place] [address] Dec, [facility] [address] [id number] [address] [place] [address], [place] [address] Dec, [facility] [address] [id number] [address] [place] [address], [place] [address] Dec, [facility] [address] [id number] [address] [place] [address], [place] [address] Dec, [facility] [address] [id number] [address] [place] [address], [place] [address] Dec, [facility] [address] [id number] [address] [place] [address], [place] [address] Dec, [facility] [address] [id number] [address] [place] [address], [place] [address] 16 Dec, 2011 [facility] [address] [id number] [address] [place] [address], [place] [address] 14 Dec, 2011 [facility] [address] [id number] [address] [place] [address], [place] [address] 12 Dec, 2011 [facility] [address] [id number] [address] [place] [address], [place] [address] Dec, [facility] [address] [id number] [address] [place] [address], [place] [address] 06 Dec, 2011 [facility] [address] [id number] [address] [place] [address], [place] [address] 29 Nov, 2011 [facility] [address] [id number] [address] [place] [address], [place] [address] 27 Nov, 2011 [facility] [address] [id number] [address] [place] [address], [place] [address] 25 Nov, 2011 [facility] [address] [id number] [address] [place] [address], [place] [address] 23 Nov, 2011 [facility] [address] [id number] [address] [place] [address], [place] [address] Nov, [facility] [address] [id number] [address] [place] [address], [place] [address] 20 Nov, 2011 [facility] [address] [id number] [address] [place] [address], [place] [address] 13 Nov, 2011 [facility] [address] [id number] [address] [place] [address], [place] [address] 13 Nov, 2011 [facility] [address] [id number] [address] [place] [address] Nov, [facility] [address] [id number] [address] [place] [address], [place] [address] 05 Nov, 2011 [facility] [address] [id number] [address] [place] [address] October, IMMUNIZATIONS No Known Immunizations SOCIAL HISTORY [...] hysterectomy-total 2005 Surgical History lower GI [facility] [place] [facility] -not sure results Surgical History EGD Hospitalization [...]
--- OUTSIDE RECORDS SUMMARY | 2019-11-15 09:37 | XMS REPORT ---
Author Author Maggy ALVES Organization [facility] Address [address] [place] [address] Care Team Providers [employer] Name Role Phone [employer] Unavailable PROBLEMS Type Condition ICD9-CM Code [id number] Code Onset Dates Condition S tatus SNOMED Code Problem Elevated liver enzymes R74.8 Active 023200458 Problem Abnormal glucose R73.09 Active 102 551257 Problem Major depressive disorder, recurrent episode, moderate F33.1 Active 922179678 Problem Hyperlipidemia LDL goal <100 E78.5 A ctive 04178307 Problem Other chronic pain G89.29 Active 8 4095957 Problem Intractable chronic migraine without aura and wi th status migrainosus G43.711 Active 691862437 Problem Essential hypertension I10 Active 62739963 Problem Hypokalemia E87.6 Active 57529332 Problem Other chronic pain G89.29 Active 8 9136192 Problem 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 Active 91572200 Problem Primary insomnia F51.01 Active 397 2004 Problem Seizure disorder G40.909 Active 128 864202 Problem Moderate persistent asthma with exacerbation J45.4 1 Active 982670572 Problem Moderate persistent asthma without complication J4 5.40 Active 822073778 Problem Reflux gastritis K29.60 Active 729 09269 Problem Irritable bowel syndrome with constipation K58.1 Active 314543347 Problem Lumbago with sciatica, left side M54.42 Active 979326708 Problem Migraine with aura and without status migrainosu s, not intractable G43.109 Active 8602367 Problem Irritable bowel K58.9 Active 1074 3008 Problem History of hypokalemia Z86.39 Active 881362145 Problem Tremor, hereditary, benign G25.0 Act caitlin 301594814 Problem Chronic migraine without aura with statu s migrainosus, not intractable G43.701 Active 742492330 Problem Lumbago with sciatica, right side M54.41 Active 798687641534013 Problem Mood disorder F39 Active 833127 05 Problem RLS (restless legs syndrome) G25.81 A ctive 67622217 Problem Aneurysm I72.9 Active 05630078 ALLERGIES No Information ENCOUNTERS Encounter Location Date Diagnosis [place] [address] [address] October, [place] [address] [address] October, [place] [address] [address] October, Seizure disorder G40.909 and Tremor, hereditary, benign G25.0 [place] [address] [address] 22 Sep, 2019 Primary insomnia F51.01 ; Ot her chronic pain G89.29 and Pain in right shoulder M25.511 [place] [address] [address] 08 Sep, 2019 Bilious vomiting with nausea R11.14 [facility]ALK IN [place] [address] [address] 07 Aug, 2019 Influenza A J10.1 [place] [address] [address] Aug, [place] [address] [address] Aug, Tinea pedis of both feet B35 .3 and Migraine with aura and without status migrainosus, not intractable G43.109 [place] [address] [address] Jul, [facility]ALK IN [facility] [address] [address] 19 Jul, 2019 Rib pain on left side R07.81 [place] [address] [address] 10 Jul, 2019 Seizure disorder G40.909 and Aneurysm I72.9 [facility] [address] [facility] [id number] [address] [place] [address] Jul, [facility] [address] [facility] [id number] [address] [place] [address] Jul, Seizure disorder G40.909 ; A neurysm I72.9 ; Migraine with aura and without status migrainosus, not intractable G43.109 and History of hypokalemia Z86.39 [facility] [address] [facility] [id number] [address] [place] [address] Jul, [facility] [address] [facility] [id number] [address] [place] [address] Jun, [place] [address] [facility] [id number] [address] [place] [address] Jun, Seizures R56.9 ; Migraine wi th aura and without status migrainosus, not intractable G43.109 ; Other chronic pain G89.29 and Pain in right shoulder M25.511 [facility] [address] [facility] [id number] [address] [place] [address] Jun, [facility] [address] [facility] [id number] [address] [place] [address] May, Primary insomnia F51.01 ; In tractable chronic migraine without aura and with status migrainosus G43.711 and Aneurysm I72.9 [facility] [address] [facility] [id number] [address] [place] [address] Apr, RLS (restless legs syndrome) G25.81 and Mood disorder F39 [facility] [address] [facility] [id number] [address] [place] [address] Apr, [place] [address] [facility] [id number] [address] [place] [address] Mar, Other chronic pain G89.29 an d Pain in right shoulder M25.511 [place] [address] [address] [facility] [id number] [address] [place] [address] Mar, Acute left ankle pain M25.57 2 [facility] [address] [facility] [id number] [address] [place] [address] Mar, [facility] [address] [facility] [id number] [address] [place] [address] Mar, Acute left ankle pain M25.57 2 [facility] [address] [facility] [id number] [address] [place] [address] Mar, Major depressive disorder, r ecurrent episode, moderate F33.1 [place] [address] [address] [facility] [id number] [address] [place] [address] Mar, Major depressive disorder, r ecurrent episode, moderate F33.1 ; Lumbago with sciatica, left side M54.42 and Lumbago with sciatica, right side M54.41 [facility] [address] [place] [id number] [address] [place] [address] Mar, [facility] [address] [facility] [id number] [address] [place] [address] Mar, [facility] [address] [place] [id number] [address] [place] [address] Mar, Major depressive disorder, r ecurrent episode, moderate F33.1 ; Lumbago with sciatica, left side M54.42 and Lumbago with sciatica, right side M54.41 [facility] [address] [place] [id number] [address] [place] [address] Feb, Viral gastroenteritis A08.4 [facility] [address] [facility] [id number] [address] [place] [address] Feb, Nausea and vomiting, intract ability of vomiting not specified, unspecified vomiting type R11.2 [facility] [address] [place] [id number] [address] [place] [address] Feb, [facility] [address] [place] [id number] [address] [place] [address] Feb, [facility] [address] [address] Feb, C. difficile colitis A04.72 ; Mood disorder F39 ; Lumbago with sciatica, left side M54.42 ; Lumbago with sciatica, right side M54.41 and Other chronic pain G89.29 [place] [address] [address] Jan, [facility]ALK IN [facility] [address] [address] Jan, Nausea & vomiting R11.2 [place] [address] [address] Dec, Irritable bowel syndrome wit h constipation K58.1 ; Other chronic pain G89.29 and Pain in right shoulder M25.511 [facility] IN [facility] [address] [address] Dec, Generalized abdominal pain R 10.84 and Nausea and vomiting, intractability of vomiting not specified, unspecified vomiting type R11.2 [facility] IN [facility] [address] [place] [id number] [address] [place] [address] Dec, [facility] [address] [place] [id number] [address] [place] [address] Dec, Dysuria R30.0 and Irritable bowel K58.9 [facility] [id number] [place] [phone] Sep, Chronic nausea R11.0 [place] [address] [address] Sep, [place] [address] [address] Sep, Viral gastroenteritis A08.4 [facility] IN [facility] [address] [address] Aug, Headache R51 ; Viral upper r espiratory tract infection J06.9 and Nausea R11.0 [facility] [address] [id number] [address] [place] [address] Jun, Reflux gastritis K29.60 [facility] [address] [id number] [address] [place] [address] Jun, [facility] [address] [id number] [address] [place] [address] May, [facility] [address] [id number] [address] [place] [address] May, [facility] [address] [facility] [id number] [address] [place] [address] Apr, Bowel habit changes R19.4 an d Acute cystitis without hematuria N30.00 [facility] [address] [facility] [id number] [address] [place] [address] Apr, Pain in right shoulder M25.5 11 [facility] [address] [facility] [id number] [address] [place] [address] Apr, [facility] [address] [facility] [id number] [address] [place] [address] Mar, [facility] [address] [facility] [id number] [address] [place] [address] Mar, [facility] [address] [facility] [id number] [address] [place] [address] Mar, [facility] [address] [facility] [id number] [address] [place] [address] Mar, [facility] [address] [facility] [id number] [address] [place] [address] 14 Feb, 2018 [facility] [address] [facility] [id number] [address] [place] [address] 10 Feb, 2018 [facility] [address] [facility] [id number] [address] [place] [address] Feb, [facility] [address] [facility] [id number] [address] [place] [address] Jan, [facility] [address] [facility] [id number] [address] [place] [address] Dec, [facility] [address] [facility] [id number] [address] [place] [address] Dec, Other chronic pain G89.29 ; Pain in right shoulder M25.511 and Liver enzyme elevation R74.8 [facility] [address] [facility] [id number] [address] [place] [address] Nov, Other chronic pain G89.29 an d Pain in right shoulder M25.511 [facility] [address] [facility] [id number] [address] [place] [address] October, [facility]ALK IN [facility] [address] [facility] [id number] [address] [place] [address] October, Right shoulder pain, unspeci fied chronicity M25.511 [facility] [address] [facility] [id number] [address] [place] [address] Aug, Elevated liver enzymes R74.8 and Hyperlipidemia LDL goal <100 E78.5 [place] [address] [facility] [id number] [address] [place] [address] Aug, [facility] [address] [facility] [id number] [address] [place] [address] Jul, [facility] [address] [facility] [id number] [address] [place] [address] Jul, Intractable chronic migraine without aura and with status migrainosus G43.711 ; Fever, unspecified fever cause R50.9 and Elevated liver enzymes R74.8 [facility] [address] [facility] [id number] [address] [place] [address] Jun, Difficulty urinating R39.198 and Moderate persistent asthma with exacerbation J45.41 [facility] [address] [address] Jun, [facility] [address] [address] Jun, Moderate persistent asthma w ith exacerbation J45.41 [facility] [address] [address] May, Elevated liver enzymes R74.8 and Hyperlipidemia LDL goal <100 E78.5 [place] [address] [address] May, Elevated lipids E78.5 [place] [address] [address] Apr, Elevated liver enzymes R74.8 [place] [address] [address] Apr, Elevated liver enzymes R74.8 [place] [address] [address] Apr, Superior glenoid labrum lesi on of right shoulder, subsequent encounter S43.431D [place] [address] [address] Apr, Hypokalemia E87.6 ; Major de pressive disorder, recurrent episode, moderate F33.1 ; Other abnormalities of breathing R06.89 and Dyspnea, unspecified R06.00 [facility] [address] [place] [id number] [address] [place] [address] Mar, Moderate persistent asthma w ithout complication J45.40 [facility] [address] [address] Mar, Impingement syndrome of righ t shoulder M75.41 [facility] [address] [place] [id number] [address] [place] [address] Jan, [facility] [address] [address] Jan, Chronic migraine without aur a with status migrainosus, not intractable G43.701 ; Essential hypertension I10 ; Irritable bowel K58.9 ; Primary insomnia F51.01 and Hypokalemia E87.6 [facility] [address] [id number] [address] [place] [address] Dec, [facility] [address] [id number] [address] [place] [address] Dec, Pain in right shoulder M25.5 11 [facility] [address] [id number] [address] [place] [address] Dec, Essential hypertension I10 [facility] [address] [id number] [address] [place] [address] Dec, [facility] [address] [id number] [address] [place] [address] Nov, Essential hypertension I10 [facility] [address] [id number] [address] [place] [address] Nov, Pain in right shoulder M25.5 11 [facility] [address] [id number] [address] [place] [address] Nov, Pain in right shoulder M25.5 11 [facility] [address] [id number] [address] [place] [phone] October, [facility] [address] [id number] [address] [place] [address] October, Pain in right shoulder M25.5 11 [facility] [address] [id number] [address] [place] [address] Sep, Arm pain, right M79.601 [facility] [address] [id number] [address] [place] [address] Sep, [facility] [address] [id number] [address] [place] [address] Sep, Abnormal glucose R73.09 and Elevated lipids E78.5 [place] [address] [place] [id number] [address] [place] [address] 17 Sep, 2016 Abnormal glucose R73.09 and Elevated lipids E78.5 [place] [address] [place] [id number] [address] [place] [address] Aug, [place] [address] [address] Aug, [place] [address] [address] Aug, [place] [address] [address] Aug, Constipation by delayed colo reny transit K59.01 ; Hypokalemia E87.6 ; Irritable bowel K58.9 ; Essential hypertension I10 ; Pain in right shoulder M25.511 ; Seizure disorder G40.909 and Screening for lipid disorders Z13.220 [place] [address] [address] Jul, Other chronic pain G89.29 an d Pain in right shoulder M25.511 [place] [address] [address] 14 Jul, 2016 Biceps muscle strain, right, subsequent encounter S46.111D [facility] [address] [place] [id number] [address] [place] [address] 08 Jul, 2016 Arm pain, right M79.601 [place] [address] [place] [id number] [address] [place] [address] Jun, [place] [address] [address] Jun, Acute non-recurrent frontal sinusitis J01.10 [place] [address] [place] [id number] [address] [place] [address] 14 May, 2016 Generalized abdominal pain R 10.84 ; Urinary tract infection without hematuria, site unspecified N39.0 ; Hypokalemia E87.6 ; Essential hypertension I10 ; Screening for lipid disorders Z13.220 ; Seizure R56.9 and Low back pain M54.5 [place] [place] [id number] [place] [address] Apr, [facility] [address] [place] [id number] [place] [address] Feb, [facility] [address] [address] Jan, [facility] [address] [address] Dec, Constipation by delayed colo reny transit K59.01 ; Hypokalemia E87.6 ; Irritable bowel K58.9 and Nausea R11.0 [facility] [address] [address] Dec, Generalized abdominal pain R 10.84 [place] [address] [address] Nov, [facility] [address] [address] Aug, Acute bronchitis J20.9 [place] [address] [address] Aug, [facility] [address] [address] 08 Aug, 2015 Low back pain M54.5 ; Hypoka lemia E87.6 ; Chronic migraine without aura with status migrainosus, not intractable G43.701 ; Tremor, hereditary, benign G25.0 ; Irritable bowel K58.9 ; Essential hypertension I10 and Seizure R56.9 [place] [address] [place] [id number] [address] [place] [address] 07 Aug, 2015 [place] [address] [address] Jul, [place] [address] [address] 03 Jul, 2015 Low back pain M54.5 ; Hypoka lemia E87.6 ; Chronic migraine without aura with status migrainosus, not intractable G43.701 ; Tremor, hereditary, benign G25.0 ; Irritable bowel K58.9 ; Essential hypertension I10 and Seizure R56.9 [place] [address] [address] Jun, Hypokalemia E87.6 [place] [address] [address] Jun, ADD (attention deficit disor dionicio) without hyperactivity F90.0 ; Generalized anxiety disorder F41.1 and Major depressive disorder, recurrent episode, moderate F33.1 [place] [address] [address] Jun, Low back pain M54.5 ; Hypoka lemia E87.6 ; Chronic migraine without aura with status migrainosus, not intractable G43.701 ; Tremor, hereditary, benign G25.0 ; Irritable bowel K58.9 ; Essential hypertension I10 and Seizure R56.9 [place] [address] [address] Jun, [place] [address] [address] May, [place] [address] [address] 30 May, 2015 Low back pain M54.5 ; Hypoka lemia E87.6 ; Chronic migraine without aura with status migrainosus, not intractable G43.701 ; Tremor, hereditary, benign G25.0 ; Irritable bowel K58.9 ; Essential hypertension I10 ; Seizure R56.9 and Tinea capitis B35.0 [place] [address] [address] May, Low back pain M54.5 ; Hypoka lemia E87.6 ; Chronic migraine without aura with status migrainosus, not intractable G43.701 ; Tremor, hereditary, benign G25.0 ; Irritable bowel K58.9 ; Essential hypertension I10 ; Seizure R56.9 ; Otitis media, left H66.92 and Dysuria 788.1 [place] [address] [place] [id number] [address] [place] [address] May, Tooth pain K08.8 [place] [address] [place] [id number] [address] [place] [address] May, [place] [address] [place] [id number] [place] [address] May, Low back pain M54.5 ; Hypoka lemia E87.6 ; Chronic migraine without aura with status migrainosus, not intractable G43.701 ; Tremor, hereditary, benign G25.0 ; Irritable bowel K58.9 and Essential hypertension I10 [place] [address] [place] [id number] [address] [place] [address] Apr, Low back pain M54.5 ; Hypoka lemia E87.6 ; Chronic migraine without aura with status migrainosus, not intractable G43.701 ; Tremor, hereditary, benign G25.0 and Irritable bowel K58.9 [place] [address] [facility] [id number] [address] [place] [address] Apr, Low back pain M54.5 [place] [address] [facility] [id number] [address] [place] [address] Mar, [place] [address] [place] [id number] [address] [place] [address] Mar, Irritable bowel syndrome wit h diarrhea K58.0 [facility] [address] [place] [id number] [address] [place] [address] Mar, [place] [address] [place] [id number] [address] [place] [address] Feb, [facility] [address] [facility] [id number] [address] [place] [address] Feb, [facility] [id number] [place] [address] Feb, Irritable bowel syndrome 564 .1 ; Lumbago 724.2 and Cervical pain (neck) 723.1 [facility] [address] [place] [id number] [address] [place] [address] Dec, Major depressive disorder, r ecurrent episode, moderate 296.32 and Generalized anxiety disorder 300.02 [facility] [address] [place] [id number] [address] [place] [address] Nov, [facility] [address] [place] [id number] [address] [place] [address] Nov, Major depressive disorder, r ecurrent episode, moderate 296.32 [facility] [id number] [place] [phone] Nov, Constipation 564.00 ; Nausea & vomiting 787.01 and Abdominal pain 789.00 [facility] [address] [id number] [address] [place] [id number] Nov, [facility] [address] [id number] [address] [place] [id number] October, [facility] [address] [id number] [address] [place] [id number] October, [facility] [address] [id number] [address] [place] [phone] October, [facility] [address] [id number] [address] [place] [id number] October, [facility] [address] [id number] [address] [place] [id number] Sep, Dysuria 788.1 [facility] [address] [id number] [address] [place] [id number] 30 Sep, 2014 [facility] [address] [id number] [address] [place] [address], [place] [address] 30 Sep, 2014 [facility] [address] [id number] [address] [place] [address], [place] [address] 14 Sep, 2014 [facility] [address] [id number] [address] [place] [address], [place] [address] Sep, [facility] [address] [id number] [address] [place] [address], [place] [address] 30 Aug, 2014 [facility] [address] [id number] [address] [place] [address], [place] [address] Aug, [facility] [address] [id number] [address] [place] [address], [place] [phone] Aug, [facility] [address] [address] [id number] [address] [place] [address], [place] [address] Aug, [facility] [address] [id number] [address] [place] [address], [place] [address] Aug, [facility] [address] [id number] [address] [place] [address], [place] [address] Aug, [facility] [address] [id number] [address] [place] [address], [place] [address] Aug, [facility] [address] [id number] [address] [place] [address], [place] [address] Aug, [facility] [address] [id number] [address] [place] [address], [place] [address] Aug, [facility] [address] [id number] [address] [place] [address], [place] [address] Aug, [facility] [address] [id number] [address] [place] [address], [place] [address] Jun, [facility] [address] [id number] [address] [place] [address], [place] [address] Jun, [facility] [address] [id number] [address] [place] [address], [place] [address] Jun, [facility] [address] [id number] [address] [place] [address], [place] [address] Jun, [facility] [address] [id number] [address] [place] [address], [place] [address] May, [facility] [address] [id number] [address] [place] [address], [place] [address] May, [facility] [address] [id number] [address] [place] [address], [place] [address] May, [facility] [address] [id number] [address] [place] [address], [place] [address] May, [facility] [address] [id number] [address] [place] [address], [place] [address] May, [facility] [address] [id number] [address] [place] [address], [place] [address] May, [facility] [address] [id number] [address] [place] [address], [place] [address] May, [facility] [address] [id number] [address] [place] [address], [place] [address] May, [facility] [address] [id number] [address] [place] [address], [place] [address] Mar, [facility] [address] [id number] [address] [place] [address], [place] [address] Mar, [facility] [address] [id number] [address] [place] [address], [place] [address] Mar, [facility] [address] [id number] [address] [place] [address], [place] [address] Mar, [facility] [address] [id number] [address] [place] [address], [place] [address] Mar, [facility] [address] [id number] [address] [place] [address], [place] [address] Mar, [facility] [address] [id number] [address] [place] [address], [place] [address] Mar, [facility] [address] [id number] [address] [place] [address], [place] [address] Mar, [facility] [address] [id number] [address] [place] [address], [place] [address] Mar, [facility] [address] [id number] [address] [place] [address], [place] [address] Mar, [facility] [address] [id number] [address] [place] [address], [place] [address] Mar, [facility] [address] [id number] [address] [place] [address], [place] [address] Mar, [facility] [address] [id number] [address] [place] [address], [place] [address] Feb, [facility] [address] [id number] [address] [place] [address], [place] [address] Feb, [facility] [address] [id number] [address] [place] [address], [place] [address] Feb, [facility] [address] [id number] [address] [place] [address], [place] [address] Feb, [facility] [address] [id number] [address] [place] [address], [place] [address] Feb, [facility] [address] [id number] [address] [place] [address], [place] [address] Feb, [facility] [address] [id number] [address] [place] [address], [place] [address] Jan, [facility] [address] [id number] [address] [place] [address], [place] [address] Jan, [facility] [address] [id number] [address] [place] [address], [place] [address] Jan, [facility] [address] [id number] [address] [place] [address], [place] [address] Jan, [facility] [address] [id number] [address] [place] [address], [place] [address] Jan, [facility] [address] [id number] [address] [place] [address], [place] [address] Jan, [facility] [address] [id number] [address] [place] [address], [place] [address] Jan, [facility] [address] [id number] [address] [place] [address], [place] [address] Jan, [facility] [address] [id number] [address] [place] [address], [place] [address] Dec, [facility] [address] [id number] [address] [place] [address], [place] [address] Dec, [facility] [address] [id number] [address] [place] [address], [place] [address] Dec, [facility] [address] [id number] [address] [place] [address], [place] [address] Dec, [facility] [address] [id number] [address] [place] [address], [place] [address] Dec, [facility] [address] [id number] [address] [place] [address], [place] [address] Dec, [facility] [address] [id number] [address] [place] [address], [place] [address] Dec, [facility] [address] [id number] [address] [place] [address], [place] [address] Dec, [facility] [address] [id number] [address] [place] [address], [place] [address] October, [facility] [address] [id number] [address] [place] [address], [place] [address] October, [facility] [address] [id number] [address] [place] [address], [place] [address] Sep, [facility] [address] [id number] [facility] [place] [address] Sep, [facility] [address] [id number] [facility] [place] [address] Sep, [facility] [address] [id number] [facility] [place] [address] Sep, [facility] [address] [id number] [address] [place] [address], [place] [address] Sep, [facility] [address] [id number] [address] [place] [address], [place] [address] Sep, [facility] [address] [id number] [address] [place] [address], [place] [address] Sep, [facility] [address] [id number] [address] [place] [address], [place] [address] Sep, [facility] [address] [id number] [address] [place] [address], [place] [address] Sep, [facility] [address] [id number] [address] [place] [address], [place] [address] Sep, [facility] [address] [id number] [address] [place] [address], [place] [address] Sep, [facility] [address] [id number] [address] [place] [address], [place] [address] Sep, [facility] [address] [id number] [address] [place] [address], [place] [address] Aug, [facility] [address] [id number] [address] [place] [address], [place] [address] Aug, [facility] [address] [id number] [address] [place] [address], [place] [address] Aug, [facility] [address] [id number] [address] [place] [address], [place] [address] Jun, [facility] [address] [id number] [address] [place] [address], [place] [address] Jun, [facility] [address] [id number] [address] [place] [address], [place] [address] Jun, [facility] [address] [id number] [address] [place] [address], [place] [address] Jun, [facility] [address] [id number] [address] [place] [address], [place] [address] Jun, [facility] [address] [id number] [address] [place] [address], [place] [address] Jun, [facility] [address] [id number] [address] [place] [address], [place] [address] Jun, [facility] [address] [id number] [address] [place] [address], [place] [address] Jun, [facility] [address] [id number] [address] [place] [address], [place] [address] Jun, [facility] [address] [id number] [address] [place] [address], [place] [address] Jun, [facility] [address] [id number] [address] [place] [address], [place] [address] May, [facility] [address] [id number] [address] [place] [address], [place] [address] May, [facility] [address] [id number] [address] [place] [address], [place] [address] May, [facility] [address] [id number] [address] [place] [address], [place] [address] May, [facility] [address] [id number] [address] [place] [address], [place] [address] Apr, [facility] [address] [id number] [address] [place] [address], [place] [address] Apr, [facility] [address] [id number] [address] [place] [address], [place] [address] Apr, [facility] [address] [id number] [address] [place] [address], [place] [address] Apr, [facility] [address] [id number] [address] [place] [address], [place] [address] Apr, [facility] [address] [id number] [address] [place] [address], [place] [address] Apr, [facility] [address] [id number] [address] [place] [address], [place] [address] Apr, [facility] [address] [id number] [address] [place] [address], [place] [address] Apr, [facility] [address] [id number] [address] [place] [address], [place] [address] Mar, [facility] [address] [id number] [address] [place] [address], [place] [address] Mar, [facility] [address] [id number] [address] [place] [address], [place] [address] Mar, [facility] [address] [id number] [address] [place] [address], [place] [address] Mar, [facility] [address] [id number] [address] [place] [address], [place] [address] Mar, [facility] [address] [id number] [address] [place] [address], [place] [address] Feb, [facility] [address] [id number] [address] [place] [address], [place] [address] Feb, [facility] [address] [id number] [address] [place] [address], [place] [address] Feb, [facility] [address] [id number] [address] [place] [address], [place] [address] Feb, [facility] [address] [id number] [address] [place] [address], [place] [address] Feb, [facility] [address] [id number] [address] [place] [address], [place] [address] Jan, [facility] [address] [id number] [address] [place] [address], [place] [address] Jan, [facility] [address] [id number] [address] [place] [address], [place] [address] Nov, [facility] [address] [id number] [address] [place] [address], [place] [address] Nov, [facility] [address] [id number] [address] [place] [address], [place] [address] Nov, [facility] [address] [id number] [address] [place] [address], [place] [address] Nov, [facility] [address] [id number] [address] [place] [address], [place] [address] October, [facility] [address] [id number] [address] [place] [address], [place] [address] Sep, [facility] [address] [id number] [address] [place] [address], [place] [address] Aug, [facility] [address] [id number] [address] [place] [address], [place] [address] Aug, [facility] [address] [id number] [address] [place] [address], [place] [address] Aug, [facility] [address] [id number] [address] [place] [address], [place] [address] Aug, [facility] [address] [id number] [address] [place] [address], [place] [address] Jul, [facility] [address] [id number] [address] [place] [address], [place] [address] Jun, [facility] [address] [id number] [address] [place] [address], [place] [address] Jun, [facility] [address] [id number] [address] [place] [address], [place] [address] May, [facility] [address] [id number] [address] [place] [address] May, [facility] [address] [id number] [address] [place] [id number] Mar, [facility] [address] [id number] [address] [place] [address] Mar, [facility] [address] [id number] [address] [place] [address] Mar, [facility] [address] [id number] [address] [place] [address] Mar, [facility] [address] [id number] [address] [place] [address] Mar, [facility] [address] [id number] [address] [place] [address] Mar, [facility] [address] [id number] [address] [place] [address] Mar, [facility] [address] [id number] [address] [place] [address] Mar, [facility] [address] [id number] [address] [place] [address] Mar, [facility] [address] [id number] [address] [place] [address] Mar, [facility] [address] [id number] [address] [place] [address] Mar, [facility] [address] [id number] [address] [place] [address] Mar, [facility] [address] [id number] [address] [place] [address] 17 Mar, 2012 [facility] [address] [id number] [address] [place] [address] 15 Mar, 2012 [facility] [address] [id number] [address] [place] [address] 15 Mar, 2012 [facility] [address] [id number] [address] [place] [address], [place] [address] 15 Mar, 2012 [facility] [address] [id number] [address] [place] [address], [place] [address] 15 Mar, 2012 [facility] [address] [id number] [address] [place] [address], [place] [address] 11 Mar, 2012 [facility] [address] [id number] [address] [place] [address], [place] [address] Mar, [facility] [address] [id number] [address] [place] [address], [place] [address] 08 Mar, 2012 [facility] [address] [id number] [address] [place] [address], [place] [address] 08 Mar, 2012 [facility] [address] [id number] [address] [place] [address], [place] [address] 03 Mar, 2012 [facility] [address] [id number] [address] [place] [address], [place] [address] Mar, [facility] [address] [id number] [address] [place] [address], [place] [address] 19 Sep, 2011 [facility] [address] [id number] [address] [place] [address] [address] 18 Sep2011 [facility] [address] [id number] [address] [place] [address], [place] [address] 17 Sep2011 [facility] [address] [id number] [address] [place] [address], [place] [address] 14 Sep, 2011 [facility] [address] [id number] [address] [place] [address], [place] [address] 14 Sep, 2011 [facility] [address] [id number] [address] [place] [address], [place] [address] 12 Feb, 2012 [facility] [address] [id number] [address] [place] [address], [place] [address] 10 Feb, 2012 [facility] [address] [id number] [address] [place] [address], [place] [address] Jan, [facility] [address] [id number] [address] [place] [address], [place] [address] Jan, [facility] [address] [id number] [address] [place] [address], [place] [address] Jan, [facility] [address] [id number] [address] [place] [address], [place] [address] Jan, [facility] [address] [id number] [address] [place] [address], [place] [address] Jan, [facility] [address] [id number] [address] [place] [address], [place] [address] Jan, [facility] [address] [id number] [address] [place] [address], [place] [address] Jan, [facility] [address] [id number] [address] [place] [address], [place] [address] Jan, [facility] [address] [id number] [address] [place] [address], [place] [address] Jan, [facility] [address] [id number] [address] [place] [address], [place] [address] Jan, [facility] [address] [id number] [address] [place] [address], [place] [address] Dec, [facility] [address] [id number] [address] [place] [address], [place] [address] Dec, [facility] [address] [id number] [address] [place] [address], [place] [address] Dec, [facility] [address] [id number] [address] [place] [address], [place] [address] Dec, [facility] [address] [id number] [address] [place] [address], [place] [address] Dec, [facility] [address] [id number] [address] [place] [address], [place] [address] Dec, [facility] [address] [id number] [address] [place] [address], [place] [address] 16 Dec, 2011 [facility] [address] [id number] [address] [place] [address], [place] [address] 14 Dec, 2011 [facility] [address] [id number] [address] [place] [address], [place] [address] 12 Dec, 2011 [facility] [address] [id number] [address] [place] [address], [place] [address] Dec, [facility] [address] [id number] [address] [place] [address], [place] [address] 06 Dec, 2011 [facility] [address] [id number] [address] [place] [address], [place] [address] 29 Nov, 2011 [facility] [address] [id number] [address] [place] [address], [place] [address] 27 Nov, 2011 [facility] [address] [id number] [address] [place] [address], [place] [address] 25 Nov, 2011 [facility] [address] [id number] [address] [place] [address], [place] [address] 23 Nov, 2011 [facility] [address] [id number] [address] [place] [address], [place] [address] Nov, [facility] [address] [id number] [address] [place] [address], [place] [address] 20 Nov, 2011 [facility] [address] [id number] [address] [place] [address], [place] [address] 13 Nov, 2011 [facility] [address] [id number] [address] [place] [address], [place] [address] 13 Nov, 2011 [facility] [address] [id number] [address] [place] [address] Nov, [facility] [address] [id number] [address] [place] [address], [place] [address] 05 Nov, 2011 [facility] [address] [id number] [address] [place] [id number] October, IMMUNIZATIONS No Known Immunizations SOCIAL HISTORY Never Assessed REASON FOR VISIT PLAN OF CARE VITAL SIGNS Height 64.5 in 2011-11-24 Weight 176.06 lbs 2011-11-24 Temperature 97.6 degrees Fahrenheit 2011-11-24 Heart Rate 82 bpm 2011-11-24 Respiratory Rate 18 2011-11-24 Blood pressure systolic 108 mmHg 2011-11-24 Blood pressure diastolic 78 mmHg 2011-11-24 MEDICATIONS Unknown Medications RESULTS No Results PROCEDURES [...] hysterectomy-total 2005 Surgical History lower GI [facility] [place] -not sure results Surgical History EGD Hospitalization [...]
--- OUTSIDE RECORDS SUMMARY | 2019-11-15 09:37 | XMS REPORT ---
Author Author Maggy ALVES Organization [facility] Address [address] [place] [address] Care Team Providers Care Corporate Manager Name Role Phone [employer] Unavailable PROBLEMS Type Condition ICD9-CM Code OLH24-MH Code Onset Dates Condition S tatus SNOMED Code Problem Elevated liver enzymes R74.8 Active 566366667 Problem Abnormal glucose R73.09 Active 102 717241 Problem Major depressive disorder, recurrent episode, moderate F33.1 Active 021026137 Problem Hyperlipidemia LDL goal <100 E78.5 A ctive 11363971 Problem Other chronic pain G89.29 Active 8 1983270 Problem Intractable chronic migraine without aura and wi th status migrainosus G43.711 Active 170835768 Problem Essential hypertension I10 Active 39186380 Problem Hypokalemia E87.6 Active 14742073 Problem Other chronic pain G89.29 Active 8 2361597 Problem 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 Active 25421364 Problem Primary insomnia F51.01 Active 397 2004 Problem Seizure disorder G40.909 Active 128 194951 Problem Moderate persistent asthma with exacerbation J45.4 1 Active 900413086 Problem Moderate persistent asthma without complication J4 5.40 Active 281854089 Problem Reflux gastritis K29.60 Active 729 01013 Problem Irritable bowel syndrome with constipation K58.1 Active 109609475 Problem Lumbago with sciatica, left side M54.42 Active 128115879 Problem Migraine with aura and without status migrainosu s, not intractable G43.109 Active 2704558 Problem Irritable bowel K58.9 Active 1074 3008 Problem History of hypokalemia Z86.39 Active 254273050 Problem Tremor, hereditary, benign G25.0 Act caitlin 853445232 Problem Chronic migraine without aura with statu s migrainosus, not intractable G43.701 Active 396362369 Problem Lumbago with sciatica, right side M54.41 Active 552538626928749 Problem Mood disorder F39 Active 066364 05 Problem RLS (restless legs syndrome) G25.81 A ctive 16221746 Problem Aneurysm I72.9 Active 32037728 ALLERGIES No Information ENCOUNTERS Encounter Location Date Diagnosis [place] [address] [address] October, [place] [address] [address] October, [place] [address] [address] October, Seizure disorder G40.909 and Tremor, hereditary, benign G25.0 [place] [address] [address] 22 Sep, 2019 Primary insomnia F51.01 ; Ot her chronic pain G89.29 and Pain in right shoulder M25.511 [place] [address] [address] 08 Sep, 2019 Bilious vomiting with nausea R11.14 [facility] [place] [address] [address] 07 Aug, 2019 Influenza A J10.1 [place] [address] [address] Aug, [place] [address] [address] Aug, Tinea pedis of both feet B35 .3 and Migraine with aura and without status migrainosus, not intractable G43.109 [place] [address] [address] Jul, [facility] [address] [address] 19 Jul, 2019 Rib pain on left side R07.81 [place] [address] [address] 10 Jul, 2019 Seizure disorder G40.909 and Aneurysm I72.9 [facility] [address] [facility] [id number] [address] [place] [address] Jul, [facility] [address] [facility] [id number] [address] [place] [address] Jul, Seizure disorder G40.909 ; A neurysm I72.9 ; Migraine with aura and without status migrainosus, not intractable G43.109 and History of hypokalemia Z86.39 [facility] [address] [facility] [id number] [address] [place] [address] Jul, [facility] [address] [facility] [id number] [address] [place] [phone] Jun, [place] [address] [facility] [id number] [address] [place] [address] Jun, Seizures R56.9 ; Migraine wi th aura and without status migrainosus, not intractable G43.109 ; Other chronic pain G89.29 and Pain in right shoulder M25.511 [facility] [address] [facility] [id number] [address] [place] [address] Jun, [facility] [address] [facility] [id number] [address] [place] [address] May, Primary insomnia F51.01 ; In tractable chronic migraine without aura and with status migrainosus G43.711 and Aneurysm I72.9 [facility] [address] [facility] [id number] [address] [place] [address] Apr, RLS (restless legs syndrome) G25.81 and Mood disorder F39 [facility] [address] [facility] [id number] [address] [place] [phone] Apr, [place] [address] [address] [facility] [id number] [address] [place] [address] Mar, Other chronic pain G89.29 an d Pain in right shoulder M25.511 [place] [address] [address] [facility] [id number] [address] [place] [address] Mar, Acute left ankle pain M25.57 2 [facility] [address] [facility] [id number] [address] [place] [address] Mar, [facility] [address] [facility] [id number] [address] [place] [address] Mar, Acute left ankle pain M25.57 2 [facility] [address] [facility] [id number] [address] [place] [address] Mar, Major depressive disorder, r ecurrent episode, moderate F33.1 [place] [address] [address] [facility] [id number] [address] [place] [address] Mar, Major depressive disorder, r ecurrent episode, moderate F33.1 ; Lumbago with sciatica, left side M54.42 and Lumbago with sciatica, right side M54.41 [facility] [address] [place] [id number] [address] [place] [address] Mar, [facility] [address] [facility] [id number] [address] [place] [address] Mar, [facility] [address] [place] [id number] [address] [place] [address] Mar, Major depressive disorder, r ecurrent episode, moderate F33.1 ; Lumbago with sciatica, left side M54.42 and Lumbago with sciatica, right side M54.41 [facility] [address] [place] [id number] [address] [place] [address] Feb, Viral gastroenteritis A08.4 [facility] [address] [facility] [id number] [address] [place] [address] Feb, Nausea and vomiting, intract ability of vomiting not specified, unspecified vomiting type R11.2 [facility] [address] [place] [id number] [address] [place] [address] Feb, [facility] [address] [place] [id number] [address] [place] [address] Feb, [facility] [address] [address] Feb, C. difficile colitis A04.72 ; Mood disorder F39 ; Lumbago with sciatica, left side M54.42 ; Lumbago with sciatica, right side M54.41 and Other chronic pain G89.29 [place] [address] [address] Jan, [facility] [address] [address] Jan, Nausea & vomiting R11.2 [place] [address] [address] Dec, Irritable bowel syndrome wit h constipation K58.1 ; Other chronic pain G89.29 and Pain in right shoulder M25.511 [facility] [address] [address] Dec, Generalized abdominal pain R 10.84 and Nausea and vomiting, intractability of vomiting not specified, unspecified vomiting type R11.2 [facility] [address] [place] [id number] [address] [place] [address] Dec, [facility] [address] [place] [id number] [address] [place] [address] Dec, Dysuria R30.0 and Irritable bowel K58.9 [facility] [id number] [place] [phone] Sep, Chronic nausea R11.0 [place] [address] [address] Sep, [place] [address] [address] Sep, Viral gastroenteritis A08.4 [facility] [address] [address] Aug, Headache R51 ; Viral upper r espiratory tract infection J06.9 and Nausea R11.0 [facility] [address] [id number] [address] [place] [address] Jun, Reflux gastritis K29.60 [facility] [address] [id number] [address] [place] [phone] Jun, [facility] [address] [id number] [address] [place] [address] May, [facility] [address] [id number] [address] [place] [address] May, [facility] [address] [facility] [id number] [address] [place] [address] Apr, Bowel habit changes R19.4 an d Acute cystitis without hematuria N30.00 [facility] [address] [facility] [id number] [address] [place] [address] Apr, Pain in right shoulder M25.5 11 [facility] [address] [facility] [id number] [address] [place] [address] Apr, [facility] [address] [facility] [id number] [address] [place] [phone] Mar, [facility] [address] [facility] [id number] [address] [place] [address] Mar, [facility] [address] [facility] [id number] [address] [place] [address] Mar, [facility] [address] [facility] [id number] [address] [place] [address] Mar, [facility] [address] [facility] [id number] [address] [place] [address] 14 Feb, 2018 [facility] [address] [facility] [id number] [address] [place] [phone] 10 Feb, 2018 [facility] [address] [facility] [id number] [address] [place] [phone] Feb, [facility] [address] [facility] [id number] [address] [place] [phone] Jan, [facility] [address] [facility] [id number] [address] [place] [address] Dec, [facility] [address] [facility] [id number] [address] [place] [address] Dec, Other chronic pain G89.29 ; Pain in right shoulder M25.511 and Liver enzyme elevation R74.8 [facility] [address] [facility] [id number] [address] [place] [address] Nov, Other chronic pain G89.29 an d Pain in right shoulder M25.511 [facility] [address] [facility] [id number] [address] [place] [address] October, [facility] [address] [facility] [id number] [address] [place] [address] October, Right shoulder pain, unspeci fied chronicity M25.511 [facility] [address] [facility] [id number] [address] [place] [phone] Aug, Elevated liver enzymes R74.8 and Hyperlipidemia LDL goal <100 E78.5 [place] [address] [address] [facility] [id number] [address] [place] [address] Aug, [facility] [address] [facility] [id number] [address] [place] [address] Jul, [facility] [address] [facility] [id number] [address] [place] [address] Jul, Intractable chronic migraine without aura and with status migrainosus G43.711 ; Fever, unspecified fever cause R50.9 and Elevated liver enzymes R74.8 [facility] [address] [facility] [id number] [address] [place] [address] Jun, Difficulty urinating R39.198 and Moderate persistent asthma with exacerbation J45.41 [facility] [address] [address] Jun, [facility] [address] [address] Jun, Moderate persistent asthma w ith exacerbation J45.41 [facility] [address] [address] May, Elevated liver enzymes R74.8 and Hyperlipidemia LDL goal <100 E78.5 [place] [address] [address] May, Elevated lipids E78.5 [place] [address] [address] Apr, Elevated liver enzymes R74.8 [place] [address] [address] Apr, Elevated liver enzymes R74.8 [place] [address] [address] Apr, Superior glenoid labrum lesi on of right shoulder, subsequent encounter S43.431D [place] [address] [address] Apr, Hypokalemia E87.6 ; Major de pressive disorder, recurrent episode, moderate F33.1 ; Other abnormalities of breathing R06.89 and Dyspnea, unspecified R06.00 [facility] [address] [place] [id number] [address] [place] [address] Mar, Moderate persistent asthma w ithout complication J45.40 [facility] [address] [address] Mar, Impingement syndrome of righ t shoulder M75.41 [facility] [address] [place] [id number] [address] [place] [address] Jan, [facility] [address] [address] Jan, Chronic migraine without aur a with status migrainosus, not intractable G43.701 ; Essential hypertension I10 ; Irritable bowel K58.9 ; Primary insomnia F51.01 and Hypokalemia E87.6 [facility] [address] [id number] [address] [place] [phone] Dec, [facility] [address] [id number] [address] [place] [address] Dec, Pain in right shoulder M25.5 11 [facility] [address] [id number] [address] [place] [phone] Dec, Essential hypertension I10 [facility] [address] [id number] [address] [place] [address] Dec, [facility] [address] [id number] [address] [place] [address] Nov, Essential hypertension I10 [facility] [address] [id number] [address] [place] [address] Nov, Pain in right shoulder M25.5 11 [facility] [address] [id number] [address] [place] [address] Nov, Pain in right shoulder M25.5 11 [facility] [address] [id number] [address] [place] [address] October, [facility] [address] [id number] [address] [place] [address] October, Pain in right shoulder M25.5 11 [facility] [address] [id number] [address] [place] [address] Sep, Arm pain, right M79.601 [facility] [address] [id number] [address] [place] [address] Sep, [facility] [address] [id number] [address] [place] [address] Sep, Abnormal glucose R73.09 and Elevated lipids E78.5 [place] [address] [address] [place] [id number] [address] [place] [address] 17 Sep, 2016 Abnormal glucose R73.09 and Elevated lipids E78.5 [place] [address] [place] [id number] [address] [place] [address] Aug, [place] [address] [address] Aug, [place] [address] [address] Aug, [place] [address] [address] Aug, Constipation by delayed colo reny transit K59.01 ; Hypokalemia E87.6 ; Irritable bowel K58.9 ; Essential hypertension I10 ; Pain in right shoulder M25.511 ; Seizure disorder G40.909 and Screening for lipid disorders Z13.220 [place] [address] [address] Jul, Other chronic pain G89.29 an d Pain in right shoulder M25.511 [place] [address] [address] 14 Jul, 2016 Biceps muscle strain, right, subsequent encounter S46.111D [facility] [address] [place] [id number] [address] [place] [address] 08 Jul, 2016 Arm pain, right M79.601 [place] [address] [place] [id number] [address] [place] [address] Jun, [place] [address] [address] Jun, Acute non-recurrent frontal sinusitis J01.10 [place] [address] [address] [place] [id number] [address] [place] [address] 14 May, 2016 Generalized abdominal pain R 10.84 ; Urinary tract infection without hematuria, site unspecified N39.0 ; Hypokalemia E87.6 ; Essential hypertension I10 ; Screening for lipid disorders Z13.220 ; Seizure R56.9 and Low back pain M54.5 [place] [address] [place] [id number] [place] [address] Apr, [facility] [address] [place] [id number] [place] [phone] Feb, [facility] [address] [address] Jan, [facility] [address] [address] Dec, Constipation by delayed colo reny transit K59.01 ; Hypokalemia E87.6 ; Irritable bowel K58.9 and Nausea R11.0 [facility] [address] [address] Dec, Generalized abdominal pain R 10.84 [place] [address] [address] Nov, [facility] [address] [address] Aug, Acute bronchitis J20.9 [place] [address] [address] Aug, [facility] [address] [address] 08 Aug, 2015 Low back pain M54.5 ; Hypoka lemia E87.6 ; Chronic migraine without aura with status migrainosus, not intractable G43.701 ; Tremor, hereditary, benign G25.0 ; Irritable bowel K58.9 ; Essential hypertension I10 and Seizure R56.9 [place] [address] [place] [id number] [address] [place] [address] 07 Aug, 2015 [place] [address] [address] Jul, [place] [address] [address] 03 Jul, 2015 Low back pain M54.5 ; Hypoka lemia E87.6 ; Chronic migraine without aura with status migrainosus, not intractable G43.701 ; Tremor, hereditary, benign G25.0 ; Irritable bowel K58.9 ; Essential hypertension I10 and Seizure R56.9 [place] [address] [address] Jun, Hypokalemia E87.6 [place] [address] [address] Jun, ADD (attention deficit disor dionicio) without hyperactivity F90.0 ; Generalized anxiety disorder F41.1 and Major depressive disorder, recurrent episode, moderate F33.1 [place] [address] [address] Jun, Low back pain M54.5 ; Hypoka lemia E87.6 ; Chronic migraine without aura with status migrainosus, not intractable G43.701 ; Tremor, hereditary, benign G25.0 ; Irritable bowel K58.9 ; Essential hypertension I10 and Seizure R56.9 [place] [address] [address] Jun, [place] [address] [address] May, [place] [address] [address] 30 May, 2015 Low back pain M54.5 ; Hypoka lemia E87.6 ; Chronic migraine without aura with status migrainosus, not intractable G43.701 ; Tremor, hereditary, benign G25.0 ; Irritable bowel K58.9 ; Essential hypertension I10 ; Seizure R56.9 and Tinea capitis B35.0 [place] [address] [address] May, Low back pain M54.5 ; Hypoka lemia E87.6 ; Chronic migraine without aura with status migrainosus, not intractable G43.701 ; Tremor, hereditary, benign G25.0 ; Irritable bowel K58.9 ; Essential hypertension I10 ; Seizure R56.9 ; Otitis media, left H66.92 and Dysuria 788.1 [place] [address] [address] [place] [id number] [address] [place] [address] May, Tooth pain K08.8 [place] [address] [place] [id number] [address] [place] [address] May, [place] [address] [place] [id number] [place] [address] May, Low back pain M54.5 ; Hypoka lemia E87.6 ; Chronic migraine without aura with status migrainosus, not intractable G43.701 ; Tremor, hereditary, benign G25.0 ; Irritable bowel K58.9 and Essential hypertension I10 [place] [address] [place] [id number] [address] [place] [address] Apr, Low back pain M54.5 ; Hypoka lemia E87.6 ; Chronic migraine without aura with status migrainosus, not intractable G43.701 ; Tremor, hereditary, benign G25.0 and Irritable bowel K58.9 [place] [address] [facility] [id number] [address] [place] [address] Apr, Low back pain M54.5 [place] [address] [facility] [id number] [address] [place] [address] Mar, [place] [address] [place] [id number] [address] [place] [address] Mar, Irritable bowel syndrome wit h diarrhea K58.0 [facility] [address] [place] [id number] [address] [place] [id number] Mar, [place] [address] [place] [id number] [address] [place] [id number] Feb, [facility] [address] [facility] [place] [id number] [place] [id number] Feb, [facility] [id number] [place] [id number] Feb, Irritable bowel syndrome 564 .1 ; Lumbago 724.2 and Cervical pain (neck) 723.1 [facility] [address] [id number] [place] [id number] Dec, Major depressive disorder, r ecurrent episode, moderate 296.32 and Generalized anxiety disorder 300.02 [facility] [address] [place] [id number] [place] [id number] Nov, [facility] [address] [id number] [address] [place] [id number] Nov, Major depressive disorder, r ecurrent episode, moderate 296.32 [facility] [id number] [place] [id number] Nov, Constipation 564.00 ; Nausea & vomiting 787.01 and Abdominal pain 789.00 [facility] [address] [id number] [place] [phone] Nov, [facility] [address] [place] [id number] [address] [place] [phone] October, [facility] [address] [place] [id number] [place] [phone] October, [facility] [address] [id number] [place] [id number] October, [facility] [address] [place] [id number] [address] [place] [id number] October, [facility] [id number] [place] [id number] Sep, Dysuria 788.1 [facility] [address] [id number] [place] [address] 30 Sep, 2014 [facility] [address] [id number] [address] [place] [address], [place] [address] 30 Sep, 2014 [facility] [address] [id number] [address] [place] [address], [place] [address] 14 Sep, 2014 [facility] [address] [id number] [address] [place] [address], [place] [address] Sep, [facility] [address] [id number] [address] [place] [address], [place] [address] 30 Aug, 2014 [facility] [address] [id number] [address] [place] [address], [place] [address] Aug, [facility] [address] [id number] [address] [place] [address], [place] [address] Aug, [facility] [address] [id number] [address] [place] [address], [place] [address] Aug, [facility] [address] [id number] [address] [place] [address], [place] [address] Aug, [facility] [address] [id number] [address] [place] [address], [place] [address] Aug, [facility] [address] [id number] [address] [place] [address], [place] [address] Aug, [facility] [address] [id number] [address] [place] [address], [place] [address] Aug, [facility] [address] [id number] [address] [place] [address], [place] [address] Aug, [facility] [address] [id number] [address] [place] [address], [place] [address] Aug, [facility] [address] [id number] [address] [place] [address], [place] [address] Jun, [facility] [address] [id number] [address] [place] [address], [place] [address] Jun, [facility] [address] [id number] [address] [place] [address], [place] [address] Jun, [facility] [address] [id number] [address] [place] [address], [place] [address] Jun, [facility] [address] [id number] [address] [place] [address], [place] [address] May, [facility] [address] [id number] [address] [place] [address], [place] [address] May, [facility] [address] [id number] [address] [place] [address], [place] [address] May, [facility] [address] [id number] [address] [place] [address], [place] [address] May, [facility] [address] [id number] [address] [place] [address], [place] [address] May, [facility] [address] [id number] [address] [place] [address], [place] [address] May, [facility] [address] [id number] [address] [place] [address], [place] [address] May, [facility] [address] [id number] [address] [place] [address], [place] [address] May, [facility] [address] [id number] [address] [place] [address], [place] [address] Mar, [facility] [address] [id number] [address] [place] [address], [place] [address] Mar, [facility] [address] [id number] [address] [place] [address], [place] [address] Mar, [facility] [address] [id number] [address] [place] [address], [place] [address] Mar, [facility] [address] [id number] [address] [place] [address], [place] [address] Mar, [facility] [address] [id number] [address] [place] [address], [place] [address] Mar, [facility] [address] [id number] [address] [place] [address], [place] [address] Mar, [facility] [address] [id number] [address] [place] [address], [place] [address] Mar, [facility] [address] [id number] [address] [place] [address], [place] [address] Mar, [facility] [address] [id number] [address] [place] [address], [place] [address] Mar, [facility] [address] [id number] [address] [place] [address], [place] [address] Mar, [facility] [address] [id number] [address] [place] [address], [place] [address] Mar, [facility] [address] [id number] [address] [place] [address], [place] [address] Feb, [facility] [address] [id number] [address] [place] [address], [place] [address] Feb, [facility] [address] [id number] [address] [place] [address], [place] [address] Feb, [facility] [address] [id number] [address] [place] [address], [place] [address] Feb, [facility] [address] [id number] [address] [place] [address], [place] [address] Feb, [facility] [address] [id number] [address] [place] [address], [place] [address] Feb, [facility] [address] [id number] [address] [place] [address], [place] [address] Jan, [facility] [address] [id number] [address] [place] [address], [place] [address] Jan, [facility] [address] [id number] [address] [place] [address], [place] [address] Jan, [facility] [address] [id number] [address] [place] [address], [place] [address] Jan, [facility] [address] [id number] [address] [place] [address], [place] [address] Jan, [facility] [address] [id number] [address] [place] [address], [place] [address] Jan, [facility] [address] [id number] [address] [place] [address], [place] [address] Jan, [facility] [address] [id number] [address] [place] [address], [place] [address] Jan, [facility] [address] [id number] [address] [place] [address], [place] [address] Dec, [facility] [address] [id number] [address] [place] [address], [place] [address] Dec, [facility] [address] [id number] [address] [place] [address], [place] [address] Dec, [facility] [address] [id number] [address] [place] [address], [place] [address] Dec, [facility] [address] [id number] [address] [place] [address], [place] [address] Dec, [facility] [address] [id number] [address] [place] [address], [place] [address] Dec, [facility] [address] [id number] [address] [place] [address], [place] [address] Dec, [facility] [address] [id number] [address] [place] [address], [place] [address] Dec, [facility] [address] [id number] [address] [place] [address], [place] [address] October, [facility] [address] [id number] [address] [place] [address], [place] [address] October, [facility] [address] [id number] [address] [place] [address], [place] [address] Sep, [facility] [address] [id number] [facility] [place] [address] Sep, [facility] [address] [id number] [facility] [place] [address] Sep, [facility] [address] [id number] [facility] [place] [address] Sep, [facility] [address] [id number] [address] [place] [address], [place] [address] Sep, [facility] [address] [id number] [address] [place] [address], [place] [address] Sep, [facility] [address] [id number] [address] [place] [address], [place] [address] Sep, [facility] [address] [id number] [address] [place] [address], [place] [address] Sep, [facility] [address] [id number] [address] [place] [address], [place] [address] Sep, [facility] [address] [id number] [address] [place] [address], [place] [address] Sep, [facility] [address] [id number] [address] [place] [address], [place] [address] Sep, [facility] [address] [id number] [address] [place] [address], [place] [address] Sep, [facility] [address] [id number] [address] [place] [address], [place] [address] Aug, [facility] [address] [id number] [address] [place] [address], [place] [address] Aug, [facility] [address] [id number] [address] [place] [address], [place] [address] Aug, [facility] [address] [id number] [address] [place] [address], [place] [address] Jun, [facility] [address] [id number] [address] [place] [address], [place] [address] Jun, [facility] [address] [id number] [address] [place] [address], [place] [address] Jun, [facility] [address] [id number] [address] [place] [address], [place] [address] Jun, [facility] [address] [id number] [address] [place] [address], [place] [address] Jun, [facility] [address] [id number] [address] [place] [address], [place] [address] Jun, [facility] [address] [id number] [address] [place] [address], [place] [address] Jun, [facility] [address] [id number] [address] [place] [address], [place] [address] Jun, [facility] [address] [id number] [address] [place] [address], [place] [address] Jun, [facility] [address] [id number] [address] [place] [address], [place] [address] Jun, [facility] [address] [id number] [address] [place] [address], [place] [address] May, [facility] [address] [id number] [address] [place] [address], [place] [address] May, [facility] [address] [id number] [address] [place] [address], [place] [address] May, [facility] [address] [id number] [address] [place] [address], [place] [address] May, [facility] [address] [id number] [address] [place] [address], [place] [address] Apr, [facility] [address] [id number] [address] [place] [address], [place] [address] Apr, [facility] [address] [id number] [address] [place] [address], [place] [address] Apr, [facility] [address] [id number] [address] [place] [address], [place] [address] Apr, [facility] [address] [id number] [address] [place] [address], [place] [address] Apr, [facility] [address] [id number] [address] [place] [address], [place] [address] Apr, [facility] [address] [id number] [address] [place] [address], [place] [address] Apr, [facility] [address] [id number] [address] [place] [address], [place] [address] Apr, [facility] [address] [id number] [address] [place] [address], [place] [address] Mar, [facility] [address] [id number] [address] [place] [address], [place] [address] Mar, [facility] [address] [id number] [address] [place] [address], [place] [address] Mar, [facility] [address] [id number] [address] [place] [address], [place] [address] Mar, [facility] [address] [id number] [address] [place] [address], [place] [address] Mar, [facility] [address] [id number] [address] [place] [address], [place] [address] Feb, [facility] [address] [id number] [address] [place] [address], [place] [address] Feb, [facility] [address] [id number] [address] [place] [address], [place] [address] Feb, [facility] [address] [id number] [address] [place] [address], [place] [address] Feb, [facility] [address] [id number] [address] [place] [address], [place] [address] Feb, [facility] [address] [id number] [address] [place] [address], [place] [address] Jan, [facility] [address] [id number] [address] [place] [address], [place] [address] Jan, [facility] [address] [id number] [address] [place] [address], [place] [address] Nov, [facility] [address] [id number] [address] [place] [address], [place] [address] Nov, [facility] [address] [id number] [address] [place] [address], [place] [address] Nov, [facility] [address] [id number] [address] [place] [address], [place] [address] Nov, [facility] [address] [id number] [address] [place] [address], [place] [address] October, [facility] [address] [id number] [address] [place] [address], [place] [address] Sep, [facility] [address] [id number] [address] [place] [address], [place] [address] Aug, [facility] [address] [id number] [address] [place] [address], [place] [address] Aug, [facility] [address] [id number] [address] [place] [address], [place] [address] Aug, [facility] [address] [id number] [address] [place] [address], [place] [address] Aug, [facility] [address] [id number] [address] [place] [address], [place] [address] Jul, [facility] [address] [id number] [address] [place] [address], [place] [address] Jun, [facility] [address] [id number] [address] [place] [address], [place] [address] Jun, [facility] [address] [id number] [address] [place] [address], [place] [address] May, [facility] [address] [id number] [address] [place] [address] May, [facility] [address] [id number] [address] [place] [id number] Mar, [facility] [address] [id number] [address] [place] [address] Mar, [facility] [address] [id number] [address] [place] [address] Mar, [facility] [address] [id number] [address] [place] [address] Mar, [facility] [address] [id number] [address] [place] [address] Mar, [facility] [address] [id number] [address] [place] [address] Mar, [facility] [address] [id number] [address] [place] [address] Mar, [facility] [address] [id number] [address] [place] [address] Mar, [facility] [address] [id number] [address] [place] [address] Mar, [facility] [address] [id number] [address] [place] [address] Mar, [facility] [address] [id number] [address] [place] [address] Mar, [facility] [address] [id number] [address] [place] [address] Mar, [facility] [address] [id number] [address] [place] [address] 17 Mar, 2012 [facility] [address] [id number] [address] [place] [address] 15 Mar, 2012 [facility] [address] [id number] [address] [place] [address] 15 Mar, 2012 [facility] [address] [id number] [address] [place] [address], [place] [address] 15 Mar, 2012 [facility] [address] [id number] [address] [place] [address], [place] [address] 15 Mar, 2012 [facility] [address] [id number] [address] [place] [address], [place] [address] 11 Mar, 2012 [facility] [address] [id number] [address] [place] [address], [place] [address] Mar, [facility] [address] [id number] [address] [place] [address], [place] [address] 08 Mar, 2012 [facility] [address] [id number] [address] [place] [address], [place] [address] 08 Mar, 2012 [facility] [address] [id number] [address] [place] [address], [place] [address] 03 Mar, 2012 [facility] [address] [id number] [address] [place] [address], [place] [address] Mar, [facility] [address] [id number] [address] [place] [address], [place] [address] 19 Sep, 2011 [facility] [address] [id number] [address] [place] [address] [address] 18 Sep2011 [facility] [address] [id number] [address] [place] [address], [place] [address] 17 Sep2011 [facility] [address] [id number] [address] [place] [address], [place] [address] 14 Sep, 2011 [facility] [address] [id number] [address] [place] [address], [place] [address] 14 Sep, 2011 [facility] [address] [id number] [address] [place] [address], [place] [address] 12 Feb, 2012 [facility] [address] [id number] [address] [place] [address], [place] [address] 10 Feb, 2012 [facility] [address] [id number] [address] [place] [address], [place] [address] Jan, [facility] [address] [id number] [address] [place] [address], [place] [address] Jan, [facility] [address] [id number] [address] [place] [address], [place] [address] Jan, [facility] [address] [id number] [address] [place] [address], [place] [address] Jan, [facility] [address] [id number] [address] [place] [address], [place] [address] Jan, [facility] [address] [id number] [address] [place] [address], [place] [address] Jan, [facility] [address] [id number] [address] [place] [address], [place] [address] Jan, [facility] [address] [id number] [address] [place] [address], [place] [address] Jan, [facility] [address] [id number] [address] [place] [address], [place] [address] Jan, [facility] [address] [id number] [address] [place] [address], [place] [address] Jan, [facility] [address] [id number] [address] [place] [address], [place] [address] Dec, [facility] [address] [id number] [address] [place] [address], [place] [address] Dec, [facility] [address] [id number] [address] [place] [address], [place] [address] Dec, [facility] [address] [id number] [address] [place] [address], [place] [address] Dec, [facility] [address] [id number] [address] [place] [address], [place] [address] Dec, [facility] [address] [id number] [address] [place] [address], [place] [address] Dec, [facility] [address] [id number] [address] [place] [address], [place] [address] 16 Dec, 2011 [facility] [address] [id number] [address] [place] [address], [place] [address] 14 Dec, 2011 [facility] [address] [id number] [address] [place] [address], [place] [address] 12 Dec, 2011 [facility] [address] [id number] [address] [place] [address], [place] [address] Dec, [facility] [address] [id number] [address] [place] [address], [place] [address] 06 Dec, 2011 [facility] [address] [id number] [address] [place] [address], [place] [address] 29 Nov, 2011 [facility] [address] [id number] [address] [place] [address], [place] [address] 27 Nov, 2011 [facility] [address] [id number] [address] [place] [address], [place] [address] 25 Nov, 2011 [facility] [address] [id number] [address] [place] [address], [place] [address] 23 Nov, 2011 [facility] [address] [id number] [address] [place] [address], [place] [address] Nov, [facility] [address] [id number] [address] [place] [address], [place] [address] 20 Nov, 2011 [facility] [address] [id number] [address] [place] [address], [place] [address] 13 Nov, 2011 [facility] [address] [id number] [address] [place] [address], [place] [address] 13 Nov, 2011 [facility] [address] [id number] [address] [place] [address] Nov, [facility] [address] [id number] [address] [place] [address], [place] [address] 05 Nov, 2011 [facility] [address] [id number] [address] [place] [address] October, IMMUNIZATIONS No Known Immunizations SOCIAL HISTORY [...] hysterectomy-total 2005 Surgical History [facility] [place] -not sure results Surgical History EGD Hospitalization [...]
--- OUTSIDE RECORDS SUMMARY | 2019-11-15 09:38 | XMS REPORT ---
Author Author Maggy Ballesteros Doctor Organization [facility] Address Unknown Phone Unavailable Care Team Providers Care Process Inspector Name Role Phone Migration, Doctor Unavailable Unavailable PROBLEMS Type Condition ICD9-CM Code [id number] Code Onset Dates Condition S tatus SNOMED Code Problem Elevated liver enzymes R74.8 Active 981631100 Problem Abnormal glucose R73.09 Active 102 812511 Problem Major depressive disorder, recurrent episode, moderate F33.1 Active 042194643 Problem Hyperlipidemia LDL goal <100 E78.5 A ctive 70523970 Problem Other chronic pain G89.29 Active 8 3493336 Problem Intractable chronic migraine without aura and wi th status migrainosus G43.711 Active 857624426 Problem Essential hypertension I10 Active 09916866 Problem Hypokalemia E87.6 Active 42702392 Problem Other chronic pain G89.29 Active 8 6567662 Problem 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 Active 39632723 Problem Primary insomnia F51.01 Active 397 2004 Problem Seizure disorder G40.909 Active 128 357453 Problem Moderate persistent asthma with exacerbation J45.4 1 Active 906350237 Problem Moderate persistent asthma without complication J4 5.40 Active 639033802 Problem Reflux gastritis K29.60 Active 729 30362 Problem Irritable bowel syndrome with constipation K58.1 Active 306109056 Problem Lumbago with sciatica, left side M54.42 Active 611061327 Problem Migraine with aura and without status migrainosu s, not intractable G43.109 Active 0118338 Problem Irritable bowel K58.9 Active 1074 3008 Problem History of hypokalemia Z86.39 Active 444822467 Problem Tremor, hereditary, benign G25.0 Act caitlin 058854444 Problem Chronic migraine without aura with statu s migrainosus, not intractable G43.701 Active 156444035 Problem Lumbago with sciatica, right side M54.41 Active 014641427814141 Problem Mood disorder F39 Active 396995 05 Problem RLS (restless legs syndrome) G25.81 A ctive 11346115 Problem Aneurysm I72.9 Active 74733233 ALLERGIES No Information ENCOUNTERS Encounter Location Date Diagnosis [place] [address] [address] 27 Oct, 2019 [place] [address] [address] 05 Oct, 2019 [place] [address] [address] October, Seizure disorder G40.909 and Tremor, hereditary, benign G25.0 [place] [address] [address] 22 Sep, 2019 Primary insomnia F51.01 ; Ot her chronic pain G89.29 and Pain in right shoulder M25.511 [place] [address] [address] 08 Sep, 2019 Bilious vomiting with nausea R11.14 [facility] WALK IN [facility] [address] [address] 07 Aug, 2019 Influenza A J10.1 [place] [address] [address] 02 Aug, 2019 [place] [address] [address] 02 Aug, 2019 Tinea pedis of both feet B35 .3 and Migraine with aura and without status migrainosus, not intractable G43.109 [place] [address] [address] Jul, [facility] [address] [address] 19 Jul, 2019 Rib pain on left side R07.81 [place] [address] [place] [id number] [place] [address] 10 Jul, 2019 Seizure disorder G40.909 and Aneurysm I72.9 [place] [address] [facility] [id number] [address] [place] [address] Jul, [facility] [address] [facility] [id number] [address] [place] [address] Jul, Seizure disorder G40.909 ; A neurysm I72.9 ; Migraine with aura and without status migrainosus, not intractable G43.109 and History of hypokalemia Z86.39 [facility] [address] [facility] [id number] [address] [place] [address] Jul, [facility] [address] [facility] [id number] [address] [place] [address] Jun, [place] [address] [place] [id number] [place] [address] Jun, Seizures R56.9 ; Migraine wi th aura and without status migrainosus, not intractable G43.109 ; Other chronic pain G89.29 and Pain in right shoulder M25.511 [place] [address] [place] [id number] [place] [address] Jun, [place] [address] [place] [id number] [place] [address] May, Primary insomnia F51.01 ; In tractable chronic migraine without aura and with status migrainosus G43.711 and Aneurysm I72.9 [place] [address] [place] [id number] [place] [address] Apr, RLS (restless legs syndrome) G25.81 and Mood disorder F39 [place] [address] [facility] [id number] [address] [place] [address] Apr, [place] [address] [place] [id number] [place] [address] Mar, Other chronic pain G89.29 an d Pain in right shoulder M25.511 [place] [address] [place] [id number] [place] [address] Mar, Acute left ankle pain M25.57 2 [facility] [address] [id number] [address] [place] [address] Mar, [facility] [address] [id number] [address] [place] [address] Mar, Acute left ankle pain M25.57 2 [facility] [address] [facility] [id number] [address] [place] [address] Mar, Major depressive disorder, r ecurrent episode, moderate F33.1 [facility] [address] [id number] [address] [place] [address] Mar, Major depressive disorder, r ecurrent episode, moderate F33.1 ; Lumbago with sciatica, left side M54.42 and Lumbago with sciatica, right side M54.41 [facility] [address] [facility] [id number] [address] [place] [address] Mar, [facility] [address] [facility] [id number] [address] [place] [address] Mar, [facility] [address] [facility] [id number] [address] [place] [address] Mar, Major depressive disorder, r ecurrent episode, moderate F33.1 ; Lumbago with sciatica, left side M54.42 and Lumbago with sciatica, right side M54.41 [facility] [address] [facility] [id number] [address] [place] [address] Feb, Viral gastroenteritis A08.4 [facility] [address] [id number] [address] [place] [address] Feb, Nausea and vomiting, intract ability of vomiting not specified, unspecified vomiting type R11.2 [facility] [address] [facility] [id number] [address] [place] [address] Feb, [facility] [address] [facility] [id number] [address] [place] [address] Feb, [facility] [address] [place] [address] Feb, C. difficile colitis A04.72 ; Mood disorder F39 ; Lumbago with sciatica, left side M54.42 ; Lumbago with sciatica, right side M54.41 and Other chronic pain G89.29 [place] [address] [place] [id number] [address] [place] [address] Jan, [facility] WALK IN [place] [address] [address] Jan, Nausea & vomiting R11.[address] [address] Dec, Irritable bowel syndrome wit h constipation K58.1 ; Other chronic pain G89.29 and Pain in right shoulder M25.511 [facility] WALK IN [address] [address] Dec, Generalized abdominal pain R 10.84 and Nausea and vomiting, intractability of vomiting not specified, unspecified vomiting type R11.2 [facility] [place] [address] [address] Dec, [place] [address] [address] Dec, Dysuria R30.0 and Irritable bowel K58.9 [facility] [id number] [place] [id number] Sep, Chronic nausea R11.0 [place] [address] [place] [id number] [address] [place] [address] Sep, [place] [address] [address] Sep, Viral gastroenteritis A08.4 [facility]ALK IN [place] [id number] [address] [place] [address] Aug, Headache R51 ; Viral upper r espiratory tract infection J06.9 and Nausea R11.0 [facility] [address] [id number] [address] [place] [address] Jun, Reflux gastritis K29.60 [facility] [address] [id number] [address] [place] [id number] Jun, [facility] [address] [id number] [address] [place] [address] May, [facility] [address] [id number] [address] [place] [address] May, [facility] [address] [id number] [address] [place] [address] Apr, Bowel habit changes R19.4 an d Acute cystitis without hematuria N30.00 [facility] [address] [id number] [address] [place] [address] Apr, Pain in right shoulder M25.5 11 [facility] [address] [id number] [address] [place] [address] Apr, [facility] [address] [id number] [address] [place] [address] Mar, [facility] [address] [id number] [address] [place] [address] Mar, [facility] [address] [id number] [address] [place] [address] Mar, [facility] [address] [id number] [address] [place] [address] Mar, [facility] [address] [id number] [address] [place] [address] 14 Feb, 2018 [facility] [address] [id number] [address] [place] [address] 10 Feb, 2018 [facility] [address] [id number] [address] [place] [address] 05 Feb, 2018 [facility] [address] [address] Jan, [facility] [address] [address] Dec, [facility] [address] [address] Dec, Other chronic pain G89.29 ; Pain in right shoulder M25.511 and Liver enzyme elevation R74.8 [place] [address] [address] Nov, Other chronic pain G89.29 an d Pain in right shoulder M25.511 [place] [address] [address] October, [facility]ALK IN [facility] [address] [address] October, Right shoulder pain, unspeci fied chronicity M25.511 [place] [address] [address] Aug, Elevated liver enzymes R74.8 and Hyperlipidemia LDL goal <100 E78.5 [place] [address] [address] Aug, [place] [address] [address] Jul, [place] [address] [address] Jul, Intractable chronic migraine without aura and with status migrainosus G43.711 ; Fever, unspecified fever cause R50.9 and Elevated liver enzymes R74.8 [place] [address] [place] [id number] [address] [place] [address] Jun, Difficulty urinating R39.198 and Moderate persistent asthma with exacerbation J45.41 [place] [address] [address] Jun, [place] [address] [place] [address] Jun, Moderate persistent asthma w ith exacerbation J45.41 [place] [address] [place] [id number] [place] [address] May, Elevated liver enzymes R74.8 and Hyperlipidemia LDL goal <[address] [address] May, Elevated lipids E78.5 [place] [address] [place] [id number] [place] [address] Apr, Elevated liver enzymes R74.8 [place] [address] [place] [id number] [place] [address] Apr, Elevated liver enzymes R74.8 [place] [address] [address] Apr, Superior glenoid labrum lesi on of right shoulder, subsequent encounter S43.431D [place] [address] [address] Apr, Hypokalemia E87.6 ; Major de pressive disorder, recurrent episode, moderate F33.1 ; Other abnormalities of breathing R06.89 and Dyspnea, unspecified R06.00 [facility] [address] [place] [id number] [place] [address] Mar, Mod[facility] J45.40 [facility] [address] [place] [id number] [address] [place] [address] Mar, Impingement syndrome of righ t shoulder M75.41 [facility] [address] [place] [id number] [place] [address] Jan, [place] [address] [place] [id number] [place] [address] Jan, Chronic migraine without aur a with status migrainosus, not intractable G43.701 ; Essential hypertension I10 ; Irritable bowel K58.9 ; Primary insomnia F51.01 and Hypokalemia E87.6 [facility] [address] [id number] [address] [place] [address] Dec, [facility] [address] [id number] [address] [place] [address] Dec, Pain in right shoulder M25.5 11 [facility] [address] [id number] [address] [place] [address] Dec, Essential hypertension I10 [facility] [address] [id number] [address] [place] [address] Dec, [facility] [address] [facility] [id number] [address] [place] [address] Nov, Essential hypertension I10 [facility] [address] [facility] [id number] [address] [place] [address] 14 Nov, 2016 Pain in right shoulder M25.5 11 [facility] [address] [id number] [address] [place] [address] Nov, Pain in right shoulder M25.5 11 [facility] [address] [facility] [id number] [address] [place] [address] October, [facility] [address] [id number] [address] [place] [address] October, Pain in right shoulder M25.5 11 [facility] [address] [id number] [address] [place] [address] Sep, Arm pain, right M79.601 [facility] [address] [facility] [id number] [address] [place] [address] Sep, [facility] [address] [facility] [id number] [address] [place] [address] Sep, Abnormal glucose R73.09 and Elevated lipids E78.5 [facility] [address] [id number] [address] [place] [address] Sep, Abnormal glucose R73.09 and Elevated lipids E78.5 [place] [address] [place] [id number] [place] [address] Aug, [place] [address] [place] [id number] [place] [address] Aug, [place] [address] [place] [id number] [place] [address] Aug, [place] [address] [place] [id number] [place] [address] Aug, Constipation by delayed colo reny transit K59.01 ; Hypokalemia E87.6 ; Irritable bowel K58.9 ; Essential hypertension I10 ; Pain in right shoulder M25.511 ; Seizure disorder G40.909 and Screening for lipid disorders Z13.220 [place] [address] [address] Jul, Other chronic pain G89.29 an d Pain in right shoulder M25.511 [place] [address] [address] 14 Jul, 2016 Biceps muscle strain, right, subsequent encounter S46.111D [facility] WALK IN [facility] [address] [place] [id number] [address] [place] [address] Jul, Arm pain, right M79.601 [place] [address] [place] [id number] [address] [place] [address] Jun, [place] [address] [place] [id number] [address] [place] [address] Jun, Acute non-recurrent frontal sinusitis J01.10 [place] [address] [place] [id number] [address] [place] [address] 14 May, 2016 Generalized abdominal pain R 10.84 ; Urinary tract infection without hematuria, site unspecified N39.0 ; Hypokalemia E87.6 ; Essential hypertension I10 ; Screening for lipid disorders Z13.220 ; Seizure R56.9 and Low back pain M54.5 [facility] [address] [facility] [id number] [address] [place] [address] Apr, [facility] [address] [facility] [id number] [address] [place] [address] Feb, [facility] [address] [facility] [id number] [address] [place] [address] Jan, [facility] [address] [facility] [id number] [address] [place] [address] Dec, Constipation by delayed colo reny transit K59.01 ; Hypokalemia E87.6 ; Irritable bowel K58.9 and Nausea R11.0 [facility]ALK IN [facility] [address] [facility] [id number] [address] [place] [address] Dec, Generalized abdominal pain R 10.84 [place] [address] [place] [id number] [address] [place] [address] Nov, [facility] IN [facility] [address] [place] [id number] [address] [place] [address] Aug, Acute bronchitis J20.9 [place] [address] [place] [id number] [address] [place] [address] Aug, [facility] [address] [place] [id number] [place] [address] 08 Aug, 2015 Low back pain M54.5 ; Hypoka lemia E87.6 ; Chronic migraine without aura with status migrainosus, not intractable G43.701 ; Tremor, hereditary, benign G25.0 ; Irritable bowel K58.9 ; Essential hypertension I10 and Seizure R56.9 [place] [address] [facility] [id number] [address] [place] [address] 07 Aug, 2015 [place] [address] [place] [id number] [address] [place] [address] Jul, [place] [address] [address] 03 Jul, 2015 Low back pain M54.5 ; Hypoka lemia E87.6 ; Chronic migraine without aura with status migrainosus, not intractable G43.701 ; Tremor, hereditary, benign G25.0 ; Irritable bowel K58.9 ; Essential hypertension I10 and Seizure R56.9 [place] [address] [address] Jun, Hypokalemia E87.6 [place] [address] [address] Jun, ADD (attention deficit disor dionicio) without hyperactivity F90.0 ; Generalized anxiety disorder F41.1 and Major depressive disorder, recurrent episode, moderate F33.1 [place] [address] [address] Jun, Low back pain M54.5 ; Hypoka lemia E87.6 ; Chronic migraine without aura with status migrainosus, not intractable G43.701 ; Tremor, hereditary, benign G25.0 ; Irritable bowel K58.9 ; Essential hypertension I10 and Seizure R56.9 [place] [address] [address] Jun, [place] [address] [address] May, [place] [address] [address] May, Low back pain M54.5 ; Hypoka lemia E87.6 ; Chronic migraine without aura with status migrainosus, not intractable G43.701 ; Tremor, hereditary, benign G25.0 ; Irritable bowel K58.9 ; Essential hypertension I10 ; Seizure R56.9 and Tinea capitis B35.0 [place] [address] [address] May, Low back pain M54.5 ; Hypoka lemia E87.6 ; Chronic migraine without aura with status migrainosus, not intractable G43.701 ; Tremor, hereditary, benign G25.0 ; Irritable bowel K58.9 ; Essential hypertension I10 ; Seizure R56.9 ; Otitis media, left H66.92 and Dysuria 788.1 [place] [id number] [place] [id number] [address] [place] [address] 14 May, 2015 Tooth pain K08.8 [place] [address] [place] [id number] [place] [address] May, [place] [address] [place] [id number] [place] [address] May, Low back pain M54.5 ; Hypoka lemia E87.6 ; Chronic migraine without aura with status migrainosus, not intractable G43.701 ; Tremor, hereditary, benign G25.0 ; Irritable bowel K58.9 and Essential hypertension I10 [place] [address] [address] Apr, Low back pain M54.5 ; Hypoka lemia E87.6 ; Chronic migraine without aura with status migrainosus, not intractable G43.701 ; Tremor, hereditary, benign G25.0 and Irritable bowel K58.9 [place] [address] [address] Apr, Low back pain M54.5 [place] [address] [place] [id number] [address] [place] [address] Mar, [place] [address] [place] [id number] [place] [address] Mar, Irritable bowel syndrome wit h diarrhea K58.0 [facility] [address] [place] [id number] [address] [place] [address] Mar, [place] [address] [place] [id number] [place] [address] Feb, [place] [address] [place] [id number] [address] [place] [address] 08 Feb, 2015 [facility] [address] [facility] [id number] [address] [place] [address] Feb, Irritable bowel syndrome 564 .1 ; Lumbago 724.2 and Cervical pain (neck) 723.1 [facility] [address] [place] [id number] [address] [place] [address] Dec, Major depressive disorder, r ecurrent episode, moderate 296.32 and Generalized anxiety disorder 300.02 [facility] [address] [facility] [id number] [address] [place] [address] Nov, [facility] [address] [place] [id number] [address] [place] [address] Nov, Major depressive disorder, r ecurrent episode, moderate 296.32 [facility] [address] [place] [id number] [address] [place] [address] Nov, Constipation 564.00 ; Nausea & vomiting 787.01 and Abdominal pain 789.00 [facility] [address] [facility] [id number] [address] [place] [address] Nov, [facility] [address] [place] [id number] [place] [address] October, [facility] [address] [place] [id number] [place] [address] October, [facility] [address] [place] [id number] [place] [address] October, [facility] [address] [facility] [id number] [address] [place] [id number] October, [facility] [address] [id number] [address] [place] [id number] Sep, Dysuria 788.1 [facility] [address] [id number] [address] [place] [id number] Sep, [facility] [address] [id number] [address] [place] [address], [place] [address] 30 Sep, 2014 [facility] [address] [id number] [address] [place] [address], [place] [address] 14 Sep, 2014 [facility] [address] [id number] [address] [place] [address], [place] [address] 13 Sep, 2014 [facility] [address] [id number] [address] [place] [address], [place] [address] 30 Aug, 2014 [facility] [address] [id number] [address] [place] [address], [place] [address] 30 Aug, 2014 [facility] [address] [id number] [address] [place] [address], [place] [address] Aug, [facility] [address] [id number] [address] [place] [address], [place] [address] Aug, [facility] [address] [id number] [address] [place] [address], [place] [address] Aug, [facility] [address] [id number] [address] [place] [address], [place] [address] 18 Aug, 2014 [facility] [address] [id number] [address] [place] [address], [place] [address] Aug, [facility] [address] [id number] [address] [place] [address], [place] [address] Aug, [facility] [address] [id number] [address] [place] [address], [place] [address] Aug, [facility] [address] [id number] [address] [place] [address], [place] [address] Aug, [facility] [address] [id number] [address] [place] [address], [place] [address] Jun, [facility] [address] [id number] [address] [place] [address], [place] [address] Jun, [facility] [address] [id number] [address] [place] [address], [place] [address] Jun, [facility] [address] [id number] [address] [place] [address], [place] [address] Jun, [facility] [address] [id number] [address] [place] [address], [place] [address] May, [facility] [address] [id number] [address] [place] [address], [place] [address] May, [facility] [address] [id number] [address] [place] [address], [place] [address] May, [facility] [address] [id number] [address] [place] [address], [place] [address] May, [facility] [address] [id number] [address] [place] [address], [place] [address] May, [facility] [address] [id number] [address] [place] [address], [place] [address] May, [facility] [address] [id number] [address] [place] [address], [place] [address] May, [facility] [address] [id number] [address] [place] [address], [place] [address] May, [facility] [address] [id number] [address] [place] [address] Mar, [facility] [address] [id number] [address] [place] [address] Mar, [facility] [address] [id number] [address] [place] [address] Mar, [facility] [address] [id number] [address] [place] [address], [place] [address] Mar, [facility] [address] [id number] [address] [place] [address], [place] [address] Mar, [facility] [address] [id number] [address] [place] [id number] Mar, [facility] [address] [id number] [address] [place] [address] 14 Mar, 2014 [facility] [address] [id number] [address] [place] [address], [place] [address] 14 Mar, 2014 [facility] [address] [id number] [address] [place] [address], [place] [address] Mar, [facility] [address] [id number] [address] [place] [address], [place] [address] Mar, [facility] [address] [id number] [address] [place] [address], [place] [address] Mar, [facility] [address] [id number] [address] [place] [address], [place] [address] Mar, [facility] [address] [id number] [address] [place] [address], [place] [address] Feb, [facility] [address] [id number] [address] [place] [address], [place] [address] 24 Feb, 2014 [facility] [address] [id number] [address] [place] [address], [place] [address] Feb, [facility] [address] [id number] [address] [place] [address], [place] [address] Feb, [facility] [address] [id number] [address] [place] [address], [place] [address] Feb, [facility] [address] [id number] [address] [place] [address], [place] [address] Feb, [facility] [address] [id number] [address] [place] [address], [place] [address] Jan, [facility] [address] [id number] [address] [place] [address], [place] [address] Jan, [facility] [address] [id number] [address] [place] [address], [place] [address] Jan, [facility] [address] [id number] [address] [place] [address], [place] [address] Jan, [facility] [address] [id number] [facility] [place] [address] Jan, [facility] [address] [id number] [facility] [place] [address] Jan, [facility] [address] [id number] [facility] [place] [address] Jan, [facility] [address] [id number] [address] [place] [address], [place] [address] Jan, [facility] [address] [id number] [address] [place] [address], [place] [address] Dec, [facility] [address] [id number] [address] [place] [address], [place] [address] Dec, [facility] [address] [id number] [address] [place] [address], [place] [address] Dec, [facility] [address] [id number] [address] [place] [address], [place] [address] Dec, [facility] [address] [id number] [address] [place] [address], [place] [address] Dec, [facility] [address] [id number] [address] [place] [address], [place] [address] Dec, [facility] [address] [id number] [address] [place] [address], [place] [address] Dec, [facility] [address] [id number] [address] [place] [address], [place] [address] Dec, [facility] [address] [id number] [address] [place] [address], [place] [address] October, [facility] [address] [id number] [address] [place] [address], [place] [address] October, [facility] [address] [id number] [address] [place] [address], [place] [address] Sep, [facility] [address] [id number] [address] [place] [address], [place] [address] Sep, [facility] [address] [id number] [facility] [address] Sep, [facility] [address] [id number] [facility] [place] [address] Sep, [facility] [address] [id number] [address] [place] [address], [place] [address] Sep, [facility] [address] [id number] [address] [place] [address], [place] [address] Sep, [facility] [address] [id number] [address] [place] [address], [place] [address] Sep, [facility] [address] [id number] [address] [place] [address], [place] [address] Sep, [facility] [address] [id number] [address] [place] [address], [place] [address] Sep, [facility] [address] [id number] [address] [place] [address], [place] [address] Sep, [facility] [address] [id number] [address] [place] [address], [place] [address] Sep, [facility] [address] [id number] [address] [place] [address], [place] [address] Sep, [facility] [address] [id number] [address] [place] [address], [place] [address] Aug, [facility] [address] [id number] [address] [place] [address], [place] [address] Aug, [facility] [address] [id number] [address] [place] [address], [place] [address] Aug, [facility] [address] [id number] [address] [place] [address], [place] [address] Jun, [facility] [address] [id number] [address] [place] [address], [place] [address] Jun, [facility] [address] [id number] [address] [place] [address], [place] [address] 14 Jun, 2013 [facility] [address] [id number] [address] [place] [address], [place] [address] Jun, [facility] [address] [id number] [address] [place] [address], [place] [address] Jun, [facility] [address] [id number] [address] [place] [address], [place] [address] Jun, [facility] [address] [id number] [address] [place] [address], [place] [address] Jun, [facility] [address] [id number] [address] [place] [address], [place] [address] Jun, [facility] [address] [id number] [address] [place] [address], [place] [address] Jun, [facility] [address] [id number] [address] [place] [address], [place] [address] Jun, [facility] [address] [id number] [address] [place] [address], [place] [address] May, [facility] [address] [id number] [address] [place] [address], [place] [address] May, [facility] [address] [id number] [address] [place] [address], [place] [address] May, [facility] [address] [id number] [address] [place] [address], [place] [address] May, [facility] [address] [id number] [address] [place] [address], [place] [address] Apr, [facility] [address] [id number] [address] [place] [address], [place] [address] Apr, [facility] [address] [id number] [address] [place] [address], [place] [address] Apr, [facility] [address] [id number] [address] [place] [address], [place] [address] Apr, [facility] [address] [id number] [address] [place] [address], [place] [address] Apr, [facility] [address] [id number] [address] [place] [address], [place] [address] Apr, [facility] [address] [id number] [address] [place] [address], [place] [address] Apr, [facility] [address] [id number] [address] [place] [address], [place] [address] Apr, [facility] [address] [id number] [address] [place] [address], [place] [address] Mar, [facility] [address] [id number] [address] [place] [address], [place] [address] Mar, [facility] [address] [id number] [address] [place] [address], [place] [address] Mar, [facility] [address] [id number] [address] [place] [address], [place] [address] Mar, [facility] [address] [id number] [address] [place] [address], [place] [address] Mar, [facility] [address] [id number] [address] [place] [address], [place] [address] Feb, [facility] [address] [id number] [address] [place] [address], [place] [address] Feb, [facility] [address] [id number] [address] [place] [address], [place] [address] Feb, [facility] [address] [id number] [address] [place] [address], [place] [address] Feb, [facility] [address] [id number] [address] [place] [address], [place] [address] Feb, [facility] [address] [id number] [address] [place] [address], [place] [address] Jan, [facility] [address] [id number] [address] [place] [address], [place] [address] Jan, [facility] [address] [id number] [address] [place] [address], [place] [address] Nov, [facility] [address] [id number] [address] [place] [address], [place] [address] Nov, [facility] [address] [id number] [address] [place] [address], [place] [address] Nov, [facility] [address] [id number] [address] [place] [address], [place] [address] Nov, [facility] [address] [id number] [address] [place] [address], [place] [address] October, [facility] [address] [id number] [address] [place] [address], [place] [address] Sep, [facility] [address] [id number] [address] [place] [address], [place] [address] Aug, [facility] [address] [id number] [address] [place] [address], [place] [address] Aug, [facility] [address] [id number] [address] [place] [address], [place] [address] Aug, [facility] [address] [id number] [address] [place] [address], [place] [address] Aug, [facility] [address] [id number] [address] [place] [address], [place] [address] Jul, [facility] [address] [id number] [address] [place] [address], [place] [address] Jun, [facility] [address] [id number] [address] [place] [address], [place] [address] Jun, [facility] [address] [id number] [address] [place] [address], [place] [address] May, [facility] [address] [id number] [address] [place] [address], [place] [address] May, [facility] [address] [id number] [address] [place] [id number] Mar, [facility] [address] [id number] [address] [place] [address], [place] [address] Mar, [facility] [address] [id number] [address] [place] [address], [place] [address] Mar, [facility] [address] [id number] [address] [place] [address], [place] [address] Mar, [facility] [address] [id number] [address] [place] [address], [place] [address] Mar, [facility] [address] [id number] [address] [place] [address], [place] [address] Mar, [facility] [address] [id number] [address] [place] [address], [place] [address] Mar, [facility] [address] [id number] [address] [place] [address], [place] [address] Mar, [facility] [address] [id number] [address] [place] [address], [place] [address] Mar, [facility] [address] [id number] [address] [place] [address], [place] [address] Mar, [facility] [address] [id number] [address] [place] [address], [place] [address] Mar, [facility] [address] [id number] [address] [place] [address], [place] [address] Mar, [facility] [address] [id number] [address] [place] [address], [place] [address] 17 Mar, 2012 [facility] [address] [id number] [address] [place] [address], [place] [address] 15 Mar, 2012 [facility] [address] [id number] [address] [place] [address], [place] [address] 15 Mar, 2012 [facility] [address] [id number] [address] [place] [address] 15 Mar, 2012 [facility] [address] [id number] [address] [place] [address], [place] [address] 15 Mar, 2012 [facility] [address] [id number] [address] [place] [address], [place] [address] Mar, [facility] [address] [id number] [address] [place] [address], [place] [address] Mar, [facility] [address] [id number] [address] [place] [address], [place] [address] Mar, [facility] [address] [id number] [address] [place] [address], [place] [address] 08 Mar, 2012 [facility] [address] [id number] [address] [place] [address], [place] [address] 03 Mar, 2012 [facility] [address] [id number] [address] [place] [address], [place] [address] Mar, [facility] [address] [id number] [address] [place] [address], [place] [address] 19 Sep2011 [facility] [address] [id number] [address] [place] [address] [address] 18 Sep2011 [facility] [address] [id number] [address] [place] [address] 17 Sep2011 [facility] [address] [id number] [address] [place] [address] 14 Sep, 2011 [facility] [address] [id number] [address] [place] [address] 14 Sep, 2011 [facility] [address] [id number] [address] [place] [address], [place] [address] 12 Sep2011 [facility] [address] [id number] [address] [place] [address] 10 Feb, 2011 [facility] [address] [id number] [address] [place] [address] 31 Jan, 2012 [facility] [address] [id number] [address] [place] [id number] Jan, [facility] [address] [id number] [address] [place] [address], [place] [address] Jan, [facility] [address] [id number] [address] [place] [address], [place] [address] Jan, [facility] [address] [id number] [address] [place] [address], [place] [address] Jan, [facility] [address] [id number] [address] [place] [address], [place] [address] Jan, [facility] [address] [id number] [address] [place] [address], [place] [address] Jan, [facility] [address] [id number] [address] [place] [address], [place] [address] Jan, [facility] [address] [id number] [address] [place] [address], [place] [address] Jan, [facility] [address] [id number] [address] [place] [address], [place] [address] Jan, [facility] [address] [id number] [address] [place] [address], [place] [address] Dec, [facility] [address] [id number] [address] [place] [address], [place] [address] Dec, [facility] [address] [id number] [address] [place] [address], [place] [address] Dec, [facility] [address] [id number] [address] [place] [address], [place] [address] Dec, [facility] [address] [id number] [address] [place] [address], [place] [address] Dec, [facility] [address] [id number] [address] [place] [address], [place] [address] Dec, [facility] [address] [id number] [address] [place] [address], [place] [address] 16 Dec, 2011 [facility] [address] [id number] [address] [place] [id number] 14 Dec, 2011 [facility] [address] [id number] [address] [place] [id number] Dec, [facility] [address] [id number] [address] [place] [id number] Dec, [facility] [address] [id number] [address] [place] [id number] 06 Dec, 2011 [facility] [address] [id number] [address] [place] [id number] 29 Nov, 2011 [facility] [address] [id number] [address] [place] [id number] Nov, [facility] [address] [id number] [address] [place] [id number] Nov, [facility] [address] [id number] [address] [place] [phone] Nov, [facility] [address] [id number] [address] [place] [id number] Nov, [facility] [address] [id number] [address] [place] [id number] Nov, [facility] [address] [id number] [address] [place] [id number] Nov, [facility] [address] [id number] [address] [place] [id number] Nov, [facility] [address] [id number] [address] [place] [phone] Nov, [facility] [address] [id number] [address] [place] [id number] 05 Nov, 2011 [facility] [address] [id number] [address] [place] [id number] October, IMMUNIZATIONS No Known Immunizations SOCIAL HISTORY Never Assessed REASON FOR VISIT PLAN OF CARE VITAL SIGNS Height 64.5 in 2011-11-14 Weight 179.1 lbs 2011-11-14 Temperature 97.3 degrees Fahrenheit 2011-11-14 Heart Rate 86 bpm 2011-11-14 Respiratory Rate 18 2011-11-14 Blood pressure systolic 108 mmHg 2011-11-14 Blood pressure diastolic 84 mmHg 2011-11-14 MEDICATIONS Unknown Medications RESULTS No Results PROCEDURES [...]
--- OUTSIDE RECORDS SUMMARY | 2019-11-15 09:38 | XMS REPORT ---
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 Phone [employer] Unavailable PROBLEMS Type Condition ICD9-CM Code EOP37-PH Code Onset Dates Condition S tatus SNOMED Code Problem Elevated liver enzymes R74.8 Active 255976866 Problem Abnormal glucose R73.09 Active 102 196581 Problem Major depressive disorder, recurrent episode, moderate F33.1 Active 442590881 Problem Hyperlipidemia LDL goal <100 E78.5 A ctive 00202274 Problem Other chronic pain G89.29 Active 8 0924489 Problem Intractable chronic migraine without aura and wi th status migrainosus G43.711 Active 097326098 Problem Essential hypertension I10 Active 38390141 Problem Hypokalemia E87.6 Active 79285721 Problem Other chronic pain G89.29 Active 8 1100505 Problem 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 Active 92686521 Problem Primary insomnia F51.01 Active 397 2004 Problem Seizure disorder G40.909 Active 128 128779 Problem Moderate persistent asthma with exacerbation J45.4 1 Active 385658158 Problem Moderate persistent asthma without complication J4 5.40 Active 030264957 Problem Reflux gastritis K29.60 Active 729 82833 Problem Irritable bowel syndrome with constipation K58.1 Active 290625414 Problem Lumbago with sciatica, left side M54.42 Active 250160836 Problem Migraine with aura and without status migrainosu s, not intractable G43.109 Active 3790144 Problem Irritable bowel K58.9 Active 1074 3008 Problem History of hypokalemia Z86.39 Active 105448845 Problem Tremor, hereditary, benign G25.0 Act caitlin 875207550 Problem Chronic migraine without aura with statu s migrainosus, not intractable G43.701 Active 603715584 Problem Lumbago with sciatica, right side M54.41 Active 795075816272616 Problem Mood disorder F39 Active 697860 05 Problem RLS (restless legs syndrome) G25.81 A ctive 06571894 Problem Aneurysm I72.9 Active 22760427 ALLERGIES No Information ENCOUNTERS Encounter Location Date Diagnosis [place] [address] [address] October, [place] [address] [address] October, [place] [address] [address] October, Seizure disorder G40.909 and Tremor, hereditary, benign G25.0 [place] [address] [address] 22 Sep, 2019 Primary insomnia F51.01 ; Ot her chronic pain G89.29 and Pain in right shoulder M25.511 [place] [address] [address] 08 Sep, 2019 Bilious vomiting with nausea R11.14 [facility] [place] [address] [address] 07 Aug, 2019 Influenza A J10.1 [place] [address] [address] Aug, [place] [address] [address] Aug, Tinea pedis of both feet B35 .3 and Migraine with aura and without status migrainosus, not intractable G43.109 [place] [address] [address] Jul, [facility] [address] [address] 19 Jul, 2019 Rib pain on left side R07.81 [place] [address] [address] 10 Jul, 2019 Seizure disorder G40.909 and Aneurysm I72.9 [facility] [address] [facility] [id number] [address] [place] [address] Jul, [facility] [address] [facility] [id number] [address] [place] [address] Jul, Seizure disorder G40.909 ; A neurysm I72.9 ; Migraine with aura and without status migrainosus, not intractable G43.109 and History of hypokalemia Z86.39 [facility] [address] [facility] [id number] [address] [place] [id number] Jul, [facility] [address] [facility] [id number] [address] [place] [phone] Jun, [place] [address] [facility] [id number] [address] [place] [phone] Jun, Seizures R56.9 ; Migraine wi th aura and without status migrainosus, not intractable G43.109 ; Other chronic pain G89.29 and Pain in right shoulder M25.511 [facility] [address] [facility] [id number] [address] [place] [phone] Jun, [facility] [address] [facility] [id number] [address] [place] [phone] May, Primary insomnia F51.01 ; In tractable chronic migraine without aura and with status migrainosus G43.711 and Aneurysm I72.9 [facility] [address] [facility] [id number] [address] [place] [id number] Apr, RLS (restless legs syndrome) G25.81 and Mood disorder F39 [facility] [address] [facility] [id number] [address] [place] [address] Apr, [place] [address] [facility] [id number] [address] [place] [address] Mar, Other chronic pain G89.29 an d Pain in right shoulder M25.511 [place] [address] [facility] [id number] [address] [place] [address] Mar, Acute left ankle pain M25.57 2 [facility] [address] [facility] [id number] [address] [place] [id number] Mar, [facility] [address] [facility] [id number] [address] [place] [address] Mar, Acute left ankle pain M25.57 2 [facility] [address] [facility] [id number] [address] [place] [address] Mar, Major depressive disorder, r ecurrent episode, moderate F33.1 [place] [address] [facility] [id number] [address] [place] [address] Mar, Major depressive disorder, r ecurrent episode, moderate F33.1 ; Lumbago with sciatica, left side M54.42 and Lumbago with sciatica, right side M54.41 [facility] [address] [place] [id number] [address] [place] [id number] Mar, [facility] [address] [facility] [id number] [address] [place] [id number] Mar, [facility] [address] [place] [id number] [address] [place] [address] Mar, Major depressive disorder, r ecurrent episode, moderate F33.1 ; Lumbago with sciatica, left side M54.42 and Lumbago with sciatica, right side M54.41 [facility] [address] [place] [id number] [address] [place] [phone] Feb, Viral gastroenteritis A08.4 [facility] [address] [facility] [id number] [address] [place] [address] Feb, Nausea and vomiting, intract ability of vomiting not specified, unspecified vomiting type R11.2 [facility] [address] [place] [id number] [address] [place] [phone] Feb, [facility] [address] [place] [id number] [address] [place] [phone] Feb, [facility] [address] [address] Feb, C. difficile colitis A04.72 ; Mood disorder F39 ; Lumbago with sciatica, left side M54.42 ; Lumbago with sciatica, right side M54.41 and Other chronic pain G89.29 [place] [address] [address] Jan, [facility] [address] [address] Jan, Nausea & vomiting R11.2 [place] [address] [address] Dec, Irritable bowel syndrome wit h constipation K58.1 ; Other chronic pain G89.29 and Pain in right shoulder M25.511 [facility] [address] [address] Dec, Generalized abdominal pain R 10.84 and Nausea and vomiting, intractability of vomiting not specified, unspecified vomiting type R11.2 [facility] [address] [place] [id number] [address] [place] [phone] Dec, [facility] [address] [place] [id number] [address] [place] [address] Dec, Dysuria R30.0 and Irritable bowel K58.9 [facility] [id number] [place] [phone] Sep, Chronic nausea R11.0 [place] [address] [address] Sep, [place] [address] [address] Sep, Viral gastroenteritis A08.4 [facility] [address] [address] Aug, Headache R51 ; Viral upper r espiratory tract infection J06.9 and Nausea R11.0 [facility] [address] [id number] [address] [place] [address] Jun, Reflux gastritis K29.60 [facility] [address] [id number] [address] [place] [phone] Jun, [facility] [address] [id number] [address] [place] [address] May, [facility] [address] [id number] [address] [place] [address] May, [facility] [address] [facility] [id number] [address] [place] [address] Apr, Bowel habit changes R19.4 an d Acute cystitis without hematuria N30.00 [facility] [address] [facility] [id number] [address] [place] [id number] Apr, Pain in right shoulder M25.5 11 [facility] [address] [facility] [id number] [address] [place] [id number] Apr, [facility] [address] [facility] [id number] [address] [place] [phone] Mar, [facility] [address] [facility] [id number] [address] [place] [phone] Mar, [facility] [address] [facility] [id number] [address] [place] [id number] Mar, [facility] [address] [facility] [id number] [address] [place] [phone] Mar, [facility] [address] [facility] [id number] [address] [place] [phone] 14 Feb, 2018 [facility] [address] [facility] [id number] [address] [place] [id number] 10 Feb, 2018 [facility] [address] [facility] [id number] [address] [place] [phone] Feb, [facility] [address] [facility] [id number] [address] [place] [phone] Jan, [facility] [address] [facility] [id number] [address] [place] [address] Dec, [facility] [address] [facility] [id number] [address] [place] [address] Dec, Other chronic pain G89.29 ; Pain in right shoulder M25.511 and Liver enzyme elevation R74.8 [facility] [address] [facility] [id number] [address] [place] [address] Nov, Other chronic pain G89.29 an d Pain in right shoulder M25.511 [facility] [address] [facility] [id number] [address] [place] [phone] October, [facility] [address] [facility] [id number] [address] [place] [phone] October, Right shoulder pain, unspeci fied chronicity M25.511 [facility] [address] [facility] [id number] [address] [place] [phone] Aug, Elevated liver enzymes R74.8 and Hyperlipidemia LDL goal <100 E78.5 [place] [address] [address] [facility] [id number] [address] [place] [phone] Aug, [facility] [address] [facility] [id number] [address] [place] [id number] Jul, [facility] [address] [facility] [id number] [address] [place] [address] Jul, Intractable chronic migraine without aura and with status migrainosus G43.711 ; Fever, unspecified fever cause R50.9 and Elevated liver enzymes R74.8 [facility] [address] [facility] [id number] [address] [place] [address] Jun, Difficulty urinating R39.198 and Moderate persistent asthma with exacerbation J45.41 [facility] [address] [address] Jun, [facility] [address] [address] Jun, Moderate persistent asthma w ith exacerbation J45.41 [facility] [address] [address] May, Elevated liver enzymes R74.8 and Hyperlipidemia LDL goal <100 E78.5 [place] [address] [address] May, Elevated lipids E78.5 [place] [address] [address] Apr, Elevated liver enzymes R74.8 [place] [address] [address] Apr, Elevated liver enzymes R74.8 [place] [address] [address] Apr, Superior glenoid labrum lesi on of right shoulder, subsequent encounter S43.431D [place] [address] [address] Apr, Hypokalemia E87.6 ; Major de pressive disorder, recurrent episode, moderate F33.1 ; Other abnormalities of breathing R06.89 and Dyspnea, unspecified R06.00 [facility] [address] [place] [id number] [address] [place] [address] Mar, Moderate persistent asthma w ithout complication J45.40 [facility] [address] [address] Mar, Impingement syndrome of righ t shoulder M75.41 [facility] [address] [place] [id number] [address] [place] [phone] Jan, [facility] [address] [address] Jan, Chronic migraine without aur a with status migrainosus, not intractable G43.701 ; Essential hypertension I10 ; Irritable bowel K58.9 ; Primary insomnia F51.01 and Hypokalemia E87.6 [facility] [address] [id number] [address] [place] [id number] Dec, [facility] [address] [id number] [address] [place] [id number] Dec, Pain in right shoulder M25.5 11 [facility] [address] [id number] [address] [place] [address] Dec, Essential hypertension I10 [facility] [address] [id number] [address] [place] [phone] Dec, [facility] [address] [id number] [address] [place] [phone] Nov, Essential hypertension I10 [facility] [address] [id number] [address] [place] [address] Nov, Pain in right shoulder M25.5 11 [facility] [address] [id number] [address] [place] [id number] Nov, Pain in right shoulder M25.5 11 [facility] [address] [id number] [address] [place] [phone] October, [facility] [address] [id number] [address] [place] [address] October, Pain in right shoulder M25.5 11 [facility] [address] [id number] [address] [place] [address] Sep, Arm pain, right M79.601 [facility] [address] [id number] [address] [place] [address] Sep, [facility] [address] [id number] [address] [place] [address] Sep, Abnormal glucose R73.09 and Elevated lipids E78.5 [place] [address] [place] [id number] [address] [place] [id number] 17 Sep, 2016 Abnormal glucose R73.09 and Elevated lipids E78.5 [place] [address] [place] [id number] [address] [place] [address] Aug, [place] [address] [address] Aug, [place] [address] [address] Aug, [place] [address] [address] Aug, Constipation by delayed colo reny transit K59.01 ; Hypokalemia E87.6 ; Irritable bowel K58.9 ; Essential hypertension I10 ; Pain in right shoulder M25.511 ; Seizure disorder G40.909 and Screening for lipid disorders Z13.220 [place] [address] [address] Jul, Other chronic pain G89.29 an d Pain in right shoulder M25.511 [place] [address] [address] 14 Jul, 2016 Biceps muscle strain, right, subsequent encounter S46.111D [facility] [address] [place] [id number] [address] [place] [address] 08 Jul, 2016 Arm pain, right M79.601 [place] [address] [place] [id number] [address] [place] [address] Jun, [place] [address] [address] Jun, Acute non-recurrent frontal sinusitis J01.10 [place] [address] [place] [id number] [address] [place] [address] 14 May, 2016 Generalized abdominal pain R 10.84 ; Urinary tract infection without hematuria, site unspecified N39.0 ; Hypokalemia E87.6 ; Essential hypertension I10 ; Screening for lipid disorders Z13.220 ; Seizure R56.9 and Low back pain M54.5 [place] [id number] [place] [id number] [place] [address] Apr, [facility] [address] [place] [id number] [place] [address] Feb, [facility] [address] [address] Jan, [facility] [address] [address] Dec, Constipation by delayed colo reny transit K59.01 ; Hypokalemia E87.6 ; Irritable bowel K58.9 and Nausea R11.0 [facility] [address] [address] Dec, Generalized abdominal pain R 10.84 [place] [address] [address] Nov, [facility] [address] [address] Aug, Acute bronchitis J20.9 [place] [address] [address] Aug, [facility] [address] [address] 08 Aug, 2015 Low back pain M54.5 ; Hypoka lemia E87.6 ; Chronic migraine without aura with status migrainosus, not intractable G43.701 ; Tremor, hereditary, benign G25.0 ; Irritable bowel K58.9 ; Essential hypertension I10 and Seizure R56.9 [place] [address] [place] [id number] [address] [place] [address] 07 Aug, 2015 [place] [address] [address] Jul, [place] [address] [address] 03 Jul, 2015 Low back pain M54.5 ; Hypoka lemia E87.6 ; Chronic migraine without aura with status migrainosus, not intractable G43.701 ; Tremor, hereditary, benign G25.0 ; Irritable bowel K58.9 ; Essential hypertension I10 and Seizure R56.9 [place] [address] [address] Jun, Hypokalemia E87.6 [place] [address] [address] Jun, ADD (attention deficit disor dionicio) without hyperactivity F90.0 ; Generalized anxiety disorder F41.1 and Major depressive disorder, recurrent episode, moderate F33.1 [place] [address] [address] Jun, Low back pain M54.5 ; Hypoka lemia E87.6 ; Chronic migraine without aura with status migrainosus, not intractable G43.701 ; Tremor, hereditary, benign G25.0 ; Irritable bowel K58.9 ; Essential hypertension I10 and Seizure R56.9 [place] [address] [address] Jun, [place] [address] [address] May, [place] [address] [address] 30 May, 2015 Low back pain M54.5 ; Hypoka lemia E87.6 ; Chronic migraine without aura with status migrainosus, not intractable G43.701 ; Tremor, hereditary, benign G25.0 ; Irritable bowel K58.9 ; Essential hypertension I10 ; Seizure R56.9 and Tinea capitis B35.0 [place] [address] [address] May, Low back pain M54.5 ; Hypoka lemia E87.6 ; Chronic migraine without aura with status migrainosus, not intractable G43.701 ; Tremor, hereditary, benign G25.0 ; Irritable bowel K58.9 ; Essential hypertension I10 ; Seizure R56.9 ; Otitis media, left H66.92 and Dysuria 788.1 [place] [address] [place] [id number] [address] [place] [address] May, Tooth pain K08.8 [place] [address] [place] [id number] [address] [place] [id number] May, [place] [address] [place] [id number] [place] [address] May, Low back pain M54.5 ; Hypoka lemia E87.6 ; Chronic migraine without aura with status migrainosus, not intractable G43.701 ; Tremor, hereditary, benign G25.0 ; Irritable bowel K58.9 and Essential hypertension I10 [place] [address] [place] [id number] [address] [place] [address] Apr, Low back pain M54.5 ; Hypoka lemia E87.6 ; Chronic migraine without aura with status migrainosus, not intractable G43.701 ; Tremor, hereditary, benign G25.0 and Irritable bowel K58.9 [place] [address] [facility] [id number] [address] [place] [address] Apr, Low back pain M54.5 [place] [address] [facility] [id number] [address] [place] [id number] Mar, [place] [address] [place] [id number] [address] [place] [id number] Mar, Irritable bowel syndrome wit h diarrhea K58.0 [facility] [address] [place] [id number] [address] [place] [id number] Mar, [place] [address] [place] [id number] [address] [place] [address] Feb, [facility] [address] [facility] [id number] [address] [place] [address] Feb, [facility] [address] [place] [address] Feb, Irritable bowel syndrome 564 .1 ; Lumbago 724.2 and Cervical pain (neck) 723.1 [facility] [address] [place] [id number] [address] [place] [address] Dec, Major depressive disorder, r ecurrent episode, moderate 296.32 and Generalized anxiety disorder 300.02 [facility] [address] [place] [id number] [address] [place] [address] Nov, [facility] [address] [place] [id number] [place] [id number] Nov, Major depressive disorder, r ecurrent episode, moderate 296.32 [facility] [id number] [place] [id number] Nov, Constipation 564.00 ; Nausea & vomiting 787.01 and Abdominal pain 789.00 [facility] [address] [place] [id number] [place] [id number] Nov, [facility] [address] [place] [id number] [place] [phone] October, [facility] [address] [place] [id number] [place] [id number] October, [facility] [address] [place] [id number] [place] [id number] October, [facility] [address] [place] [id number] [address] [place] [id number] October, [facility] [address] [place] [id number] [place] [id number] Sep, Dysuria 788.1 [facility] [address] [place] [id number] [address] [place] [id number] 30 Sep, 2014 [facility] [address] [id number] [address] [place] [address], [place] [id number] 30 Sep, 2014 [facility] [address] [id number] [address] [place] [address], [place] [id number] 14 Sep, 2014 [facility] [address] [id number] [address] [place] [address], [place] [address] Sep, [facility] [address] [id number] [address] [place] [address], [place] [address] 30 Aug, 2014 [facility] [address] [id number] [address] [place] [address], [place] [address] Aug, [facility] [address] [id number] [address] [place] [address], [place] [address] Aug, [facility] [address] [id number] [address] [place] [address], [place] [address] Aug, [facility] [address] [id number] [address] [place] [address], [place] [address] Aug, [facility] [address] [id number] [address] [place] [address], [place] [address] Aug, [facility] [address] [id number] [address] [place] [address], [place] [address] Aug, [facility] [address] [id number] [address] [place] [address], [place] [address] Aug, [facility] [address] [id number] [address] [place] [address], [place] [address] Aug, [facility] [address] [id number] [address] [place] [address], [place] [address] Aug, [facility] [address] [id number] [address] [place] [address], [place] [address] Jun, [facility] [address] [id number] [address] [place] [address], [place] [address] Jun, [facility] [address] [id number] [address] [place] [address], [place] [address] Jun, [facility] [address] [id number] [address] [place] [address], [place] [address] Jun, [facility] [address] [id number] [address] [place] [address], [place] [address] May, [facility] [address] [id number] [address] [place] [address], [place] [address] May, [facility] [address] [id number] [address] [place] [address], [place] [address] May, [facility] [address] [id number] [address] [place] [address], [place] [address] May, [facility] [address] [id number] [address] [place] [address], [place] [address] May, [facility] [address] [id number] [address] [place] [address], [place] [address] May, [facility] [address] [id number] [address] [place] [address], [place] [address] May, [facility] [address] [id number] [address] [place] [address], [place] [address] May, [facility] [address] [id number] [address] [place] [address], [place] [address] Mar, [facility] [address] [id number] [address] [place] [address], [place] [address] Mar, [facility] [address] [id number] [address] [place] [address], [place] [address] Mar, [facility] [address] [id number] [address] [place] [address], [place] [address] Mar, [facility] [address] [id number] [address] [place] [address], [place] [address] Mar, [facility] [address] [id number] [address] [place] [address], [place] [address] Mar, [facility] [address] [id number] [address] [place] [address], [place] [address] Mar, [facility] [address] [id number] [address] [place] [address], [place] [address] Mar, [facility] [address] [id number] [address] [place] [address], [place] [address] Mar, [facility] [address] [id number] [address] [place] [address], [place] [address] Mar, [facility] [address] [id number] [address] [place] [address], [place] [address] Mar, [facility] [address] [id number] [address] [place] [address], [place] [address] Mar, [facility] [address] [id number] [address] [place] [address], [place] [address] Feb, [facility] [address] [id number] [address] [place] [address], [place] [address] Feb, [facility] [address] [id number] [address] [place] [address], [place] [address] Feb, [facility] [address] [id number] [address] [place] [address], [place] [address] Feb, [facility] [address] [id number] [address] [place] [address], [place] [address] Feb, [facility] [address] [id number] [address] [place] [address], [place] [address] Feb, [facility] [address] [id number] [address] [place] [address], [place] [address] Jan, [facility] [address] [id number] [address] [place] [address], [place] [address] Jan, [facility] [address] [id number] [address] [place] [address], [place] [address] Jan, [facility] [address] [id number] [address] [place] [address], [place] [address] Jan, [facility] [address] [id number] [address] [place] [address], [place] [address] Jan, [facility] [address] [id number] [address] [place] [address], [place] [address] Jan, [facility] [address] [id number] [address] [place] [address], [place] [address] Jan, [facility] [address] [id number] [address] [place] [address], [place] [address] Jan, [facility] [address] [id number] [address] [place] [address], [place] [address] Dec, [facility] [address] [id number] [address] [place] [address], [place] [address] Dec, [facility] [address] [id number] [address] [place] [address], [place] [address] Dec, [facility] [address] [id number] [address] [place] [address], [place] [address] Dec, [facility] [address] [id number] [address] [place] [address], [place] [address] Dec, [facility] [address] [id number] [address] [place] [address], [place] [address] Dec, [facility] [address] [id number] [address] [place] [address], [place] [address] Dec, [facility] [address] [id number] [address] [place] [address], [place] [address] Dec, [facility] [address] [id number] [address] [place] [address], [place] [address] October, [facility] [address] [id number] [address] [place] [address], [place] [address] October, [facility] [address] [id number] [address] [place] [address], [place] [address] Sep, [facility] [address] [id number] [facility] [place] [address] Sep, [facility] [address] [id number] [facility] [place] [address] Sep, [facility] [address] [id number] [facility] [place] [address] Sep, [facility] [address] [id number] [address] [place] [address], [place] [address] Sep, [facility] [address] [id number] [address] [place] [address], [place] [address] Sep, [facility] [address] [id number] [address] [place] [address], [place] [address] Sep, [facility] [address] [id number] [address] [place] [address], [place] [address] Sep, [facility] [address] [id number] [address] [place] [address], [place] [address] Sep, [facility] [address] [id number] [address] [place] [address], [place] [address] Sep, [facility] [address] [id number] [address] [place] [address], [place] [address] Sep, [facility] [address] [id number] [address] [place] [address], [place] [address] Sep, [facility] [address] [id number] [address] [place] [address], [place] [address] Aug, [facility] [address] [id number] [address] [place] [address], [place] [address] Aug, [facility] [address] [id number] [address] [place] [address], [place] [address] Aug, [facility] [address] [id number] [address] [place] [address], [place] [address] Jun, [facility] [address] [id number] [address] [place] [address], [place] [address] Jun, [facility] [address] [id number] [address] [place] [address], [place] [address] Jun, [facility] [address] [id number] [address] [place] [address], [place] [address] Jun, [facility] [address] [id number] [address] [place] [address], [place] [address] Jun, [facility] [address] [id number] [address] [place] [address], [place] [address] Jun, [facility] [address] [id number] [address] [place] [address], [place] [address] Jun, [facility] [address] [id number] [address] [place] [address], [place] [address] Jun, [facility] [address] [id number] [address] [place] [address], [place] [address] Jun, [facility] [address] [id number] [address] [place] [address], [place] [address] Jun, [facility] [address] [id number] [address] [place] [address], [place] [address] May, [facility] [address] [id number] [address] [place] [address], [place] [address] May, [facility] [address] [id number] [address] [place] [address], [place] [address] May, [facility] [address] [id number] [address] [place] [address], [place] [address] May, [facility] [address] [id number] [address] [place] [address], [place] [address] Apr, [facility] [address] [id number] [address] [place] [address], [place] [address] Apr, [facility] [address] [id number] [address] [place] [address], [place] [address] Apr, [facility] [address] [id number] [address] [place] [address], [place] [address] Apr, [facility] [address] [id number] [address] [place] [address], [place] [address] Apr, [facility] [address] [id number] [address] [place] [address], [place] [address] Apr, [facility] [address] [id number] [address] [place] [address], [place] [address] Apr, [facility] [address] [id number] [address] [place] [address], [place] [address] Apr, [facility] [address] [id number] [address] [place] [address], [place] [address] Mar, [facility] [address] [id number] [address] [place] [address], [place] [address] Mar, [facility] [address] [id number] [address] [place] [address], [place] [address] Mar, [facility] [address] [id number] [address] [place] [address], [place] [address] Mar, [facility] [address] [id number] [address] [place] [address], [place] [address] Mar, [facility] [address] [id number] [address] [place] [address], [place] [address] Feb, [facility] [address] [id number] [address] [place] [address], [place] [address] Feb, [facility] [address] [id number] [address] [place] [address], [place] [address] Feb, [facility] [address] [id number] [address] [place] [address], [place] [address] Feb, [facility] [address] [id number] [address] [place] [address], [place] [address] Feb, [facility] [address] [id number] [address] [place] [address], [place] [address] Jan, [facility] [address] [id number] [address] [place] [address], [place] [address] Jan, [facility] [address] [id number] [address] [place] [address], [place] [address] Nov, [facility] [address] [id number] [address] [place] [address], [place] [address] Nov, [facility] [address] [id number] [address] [place] [address], [place] [address] Nov, [facility] [address] [id number] [address] [place] [address], [place] [address] Nov, [facility] [address] [id number] [address] [place] [address], [place] [address] October, [facility] [address] [id number] [address] [place] [address], [place] [address] Sep, [facility] [address] [id number] [address] [place] [address], [place] [address] Aug, [facility] [address] [id number] [address] [place] [address], [place] [address] Aug, [facility] [address] [id number] [address] [place] [address], [place] [address] Aug, [facility] [address] [id number] [address] [place] [address], [place] [address] Aug, [facility] [address] [id number] [address] [place] [address], [place] [address] Jul, [facility] [address] [id number] [address] [place] [address], [place] [address] Jun, [facility] [address] [id number] [address] [place] [address], [place] [address] Jun, [facility] [address] [id number] [address] [place] [address], [place] [address] May, [facility] [address] [id number] [address] [place] [id number] May, [facility] [address] [id number] [address] [place] [id number] Mar, [facility] [address] [id number] [address] [place] [id number] Mar, [facility] [address] [id number] [address] [place] [id number] Mar, [facility] [address] [id number] [address] [place] [address] Mar, [facility] [address] [id number] [address] [place] [id number] Mar, [facility] [address] [id number] [address] [place] [address] Mar, [facility] [address] [id number] [address] [place] [id number] Mar, [facility] [address] [id number] [address] [place] [id number] Mar, [facility] [address] [id number] [address] [place] [id number] Mar, [facility] [address] [id number] [address] [place] [id number] Mar, [facility] [address] [id number] [address] [place] [address] Mar, [facility] [address] [id number] [address] [place] [address] Mar, [facility] [address] [id number] [address] [place] [id number] 17 Mar, 2012 [facility] [address] [id number] [address] [place] [id number] 15 Mar, 2012 [facility] [address] [id number] [address] [place] [id number] 15 Mar, 2012 [facility] [address] [id number] [address] [place] [address], [place] [address] 15 Mar, 2012 [facility] [address] [id number] [address] [place] [address], [place] [address] 15 Mar, 2012 [facility] [address] [id number] [address] [place] [address], [place] [address] 11 Mar, 2012 [facility] [address] [id number] [address] [place] [address], [place] [address] Mar, [facility] [address] [id number] [address] [place] [address], [place] [address] 08 Mar, 2012 [facility] [address] [id number] [address] [place] [address], [place] [address] 08 Mar, 2012 [facility] [address] [id number] [address] [place] [address], [place] [address] 03 Mar, 2012 [facility] [address] [id number] [address] [place] [address], [place] [address] Mar, [facility] [address] [id number] [address] [place] [address], [place] [address] 19 Sep, 2011 [facility] [address] [id number] [address] [place] [address], [place] [address] 18 Sep2011 [facility] [address] [id number] [address] [place] [address], [place] [address] 17 Sep2011 [facility] [address] [id number] [address] [place] [address], [place] [address] 14 Sep, 2011 [facility] [address] [id number] [address] [place] [address], [place] [address] 14 Sep, 2011 [facility] [address] [id number] [address] [place] [address], [place] [address] 12 Feb, 2012 [facility] [address] [id number] [address] [place] [address], [place] [address] 10 Feb, 2012 [facility] [address] [id number] [address] [place] [address], [place] [address] Jan, [facility] [address] [id number] [address] [place] [address], [place] [address] Jan, [facility] [address] [id number] [address] [place] [address], [place] [address] Jan, [facility] [address] [id number] [address] [place] [address], [place] [address] Jan, [facility] [address] [id number] [address] [place] [address], [place] [address] Jan, [facility] [address] [id number] [address] [place] [address], [place] [address] Jan, [facility] [address] [id number] [address] [place] [address], [place] [address] Jan, [facility] [address] [id number] [address] [place] [address], [place] [address] Jan, [facility] [address] [id number] [address] [place] [address], [place] [id number] Jan, [facility] [address] [id number] [address] [place] [address], [place] [address] Jan, [facility] [address] [id number] [address] [place] [address], [place] [id number] Dec, [facility] [address] [id number] [address] [place] [address], [place] [id number] Dec, [facility] [address] [id number] [address] [place] [address], [place] [address] Dec, [facility] [address] [id number] [address] [place] [address], [place] [address] Dec, [facility] [address] [id number] [address] [place] [address], [place] [address] Dec, [facility] [address] [id number] [address] [place] [address], [place] [address] Dec, [facility] [address] [id number] [address] [place] [address], [place] [id number] 16 Dec, [address] [facility] [address] [id number] [address] [place] [address], [place] [id number] 14 Dec, [address] [facility] [address] [id number] [address] [place] [address], [place] [id number] 12 [address], [address] [facility] [address] [id number] [address] [place] [address], [place] [address] Dec, [facility] [address] [id number] [address] [place] [address], [place] [id number] 06 Dec, 2011 [facility] [address] [id number] [address] [place] [address], [place] [address] 29 Nov, [address] [facility] [address] [id number] [address] [place] [address], [place] [id number] 27 Nov, [address] [facility] [address] [id number] [address] [place] [address], [place] [id number] 25 Nov, [address] [facility] [address] [id number] [address] [place] [address], [place] [address] 23 [address], [address] [facility] [address] [id number] [address] [place] [address], [place] [address] Nov, [facility] [address] [id number] [address] [place] [address], [place] [address] 20 Nov, [address] [facility] [address] [id number] [address] [place] [address], [place] [address] 13 Nov, [address] [facility] [address] [id number] [address] [place] [address], [place] [address] 13 Nov, [address] [facility] [address] [id number] [address] [place] [id number] Nov, [facility] [address] [id number] [address] [place] [address], [place] [address] 05 Nov, [address] [facility] [address] [id number] [address] [place] [id number] October, IMMUNIZATIONS No Known Immunizations SOCIAL HISTORY Never Assessed REASON FOR VISIT PLAN OF CARE VITAL SIGNS MEDICATIONS Unknown Medications RESULTS No Results PROCEDURES Procedure Date Ordered Result Body Site URINALYSIS, AUTO, W/O SCOPE November 26, 2011 INSTRUCTIONS MEDICATIONS ADMINISTERED No Known Medications MEDICAL [...]
--- OUTSIDE RECORDS SUMMARY | 2019-11-15 09:38 | XMS REPORT ---
Author Author Maggy Ballesteros Doctor Organization [facility] Address Unknown Phone Unavailable Care Team Providers Care Stroboscope Operator Name Role Phone Migration, Doctor Unavailable Unavailable PROBLEMS Type Condition ICD9-CM Code [id number] Code Onset Dates Condition S tatus SNOMED Code Problem Elevated liver enzymes R74.8 Active 448268941 Problem Abnormal glucose R73.09 Active 102 619930 Problem Major depressive disorder, recurrent episode, moderate F33.1 Active 966666135 Problem Hyperlipidemia LDL goal <100 E78.5 A ctive 54385192 Problem Other chronic pain G89.29 Active 8 4479376 Problem Intractable chronic migraine without aura and wi th status migrainosus G43.711 Active 028919877 Problem Essential hypertension I10 Active 11540156 Problem Hypokalemia E87.6 Active 98147997 Problem Other chronic pain G89.29 Active 8 2953056 Problem 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 Active 94842352 Problem Primary insomnia F51.01 Active 397 2004 Problem Seizure disorder G40.909 Active 128 118033 Problem Moderate persistent asthma with exacerbation J45.4 1 Active 050071621 Problem Moderate persistent asthma without complication J4 5.40 Active 693388429 Problem Reflux gastritis K29.60 Active 729 33763 Problem Irritable bowel syndrome with constipation K58.1 Active 621739580 Problem Lumbago with sciatica, left side M54.42 Active 833992220 Problem Migraine with aura and without status migrainosu s, not intractable G43.109 Active 5529297 Problem Irritable bowel K58.9 Active 1074 3008 Problem History of hypokalemia Z86.39 Active 696564263 Problem Tremor, hereditary, benign G25.0 Act caitlin 112442872 Problem Chronic migraine without aura with statu s migrainosus, not intractable G43.701 Active 618754274 Problem Lumbago with sciatica, right side M54.41 Active 591438665080905 Problem Mood disorder F39 Active 683207 05 Problem RLS (restless legs syndrome) G25.81 A ctive 26677834 Problem Aneurysm I72.9 Active 83274519 ALLERGIES No Information ENCOUNTERS Encounter Location Date Diagnosis [place] [address] [place] [id number] 08 Sep, 2019 Bilious vomiting with nausea R11.14 [facility] [address] [address] 07 Aug, 2019 Influenza A J10.1 [place] [address] [address] Aug, [place] [address] [address] 02 Aug, 2019 Tinea pedis of both feet B35 .3 and Migraine with aura and without status migrainosus, not intractable G43.109 [place] [address] [id number] 21 Jul, 2019 [facility] [address] [address] 19 Jul, 2019 Rib pain on left side R07.81 [place] [address] [address] 10 Jul, 2019 Seizure disorder G40.909 and Aneurysm I72.9 [place] [address] [id number] 07 Jul, 2019 [place] [address] [address] 06 Jul, 2019 Seizure disorder G40.909 ; A neurysm I72.9 ; Migraine with aura and without status migrainosus, not intractable G43.109 and History of hypokalemia Z86.39 [place] [address] [address] 04 Jul, 2019 [place] [address] [address] Jun, [facility] [address] [id number] [address] [place] [address] Jun, Seizures R56.9 ; Migraine wi th aura and without status migrainosus, not intractable G43.109 ; Other chronic pain G89.29 and Pain in right shoulder M25.511 [facility] [address] [id number] [address] [place] [address] Jun, [facility] [address] [id number] [address] [place] [address] May, Primary insomnia F51.01 ; In tractable chronic migraine without aura and with status migrainosus G43.711 and Aneurysm I72.9 [facility] [address] [id number] [address] [place] [address] Apr, RLS (restless legs syndrome) G25.81 and Mood disorder F39 [facility] [address] [id number] [address] [place] [address] Apr, [facility] [address] [id number] [address] [place] [phone] Mar, Other chronic pain G89.29 an d Pain in right shoulder M25.511 [facility] [address] [id number] [address] [place] [address] Mar, Acute left ankle pain M25.57 2 [facility] [address] [id number] [address] [place] [address] Mar, [facility] [address] [id number] [address] [place] [address] Mar, Acute left ankle pain M25.57 2 [facility] [address] [id number] [address] [place] [address] Mar, Major depressive disorder, r ecurrent episode, moderate F33.1 [facility] [address] [id number] [address] [place] [address] Mar, Major depressive disorder, r ecurrent episode, moderate F33.1 ; Lumbago with sciatica, left side M54.42 and Lumbago with sciatica, right side M54.41 [facility] [address] [facility] [id number] [address] [place] [address] Mar, [place] [address] [address] [facility] [id number] [address] [place] [address] Mar, [place] [address] [place] [id number] [place] [address] Mar, Major depressive disorder, r ecurrent episode, moderate F33.1 ; Lumbago with sciatica, left side M54.42 and Lumbago with sciatica, right side M54.41 [place] [address] [place] [id number] [place] [address] Feb, Viral gastroenteritis A08.4 [facility] [place] [id number] [place] [phone] Feb, Nausea and vomiting, intract ability of vomiting not specified, unspecified vomiting type R11.2 [place] [address] [place] [id number] [address] [place] [address] Feb, [place] [address] [place] [id number] [place] [id number] Feb, [place] [address] [place] [id number] [place] [address] Feb, C. difficile colitis A04.72 ; Mood disorder F39 ; Lumbago with sciatica, left side M54.42 ; Lumbago with sciatica, right side M54.41 and Other chronic pain G89.29 [place] [address] [place] [id number] [place] [address] Jan, [facility] [address] [place] [id number] [place] [address] Jan, Nausea & vomiting R11.2 [place] [address] [place] [id number] [place] [address] Dec, Irritable bowel syndrome wit h constipation K58.1 ; Other chronic pain G89.29 and Pain in right shoulder M25.511 [facility] [address] [place] [id number] [place] [address] Dec, Generalized abdominal pain R 10.84 and Nausea and vomiting, intractability of vomiting not specified, unspecified vomiting type R11.2 [facility] [address] [place] [id number] [address] [place] [address] Dec, [facility] [address] [place] [id number] [address] [place] [address] Dec, Dysuria R30.0 and Irritable bowel K58.9 [facility] [address] [place] [id number] [place] [phone] Sep, Chronic nausea R11.0 [facility] [address] [place] [id number] [address] [place] [address] Sep, [facility] [address] [place] [id number] [address] [place] [address] Sep, Viral gastroenteritis A08.4 [facility] [address] [place] [id number] [place] [address] Aug, Headache R51 ; Viral upper r espiratory tract infection J06.9 and Nausea R11.0 [facility] [id number] [place] [address] Jun, Reflux gastritis K29.60 [facility] [address] [place] [id number] [address] [place] [address] Jun, [facility] [address] [address] May, [facility] [address] [place] [id number] [place] [address] May, [facility] [address] [place] [id number] [place] [address] Apr, Bowel habit changes R19.4 an d Acute cystitis without hematuria N30.00 [facility] [address] [id number] [address] [place] [address] Apr, Pain in right shoulder M25.5 11 [facility] [address] [id number] [address] [place] [address] Apr, [facility] [address] [id number] [address] [place] [address] Mar, [facility] [address] [id number] [address] [place] [address] Mar, [facility] [address] [id number] [address] [place] [address] Mar, [facility] [address] [id number] [address] [place] [address] Mar, [facility] [address] [id number] [address] [place] [address] Feb, [facility] [address] [id number] [address] [place] [address] Feb, [facility] [address] [id number] [address] [place] [address] Feb, [facility] [address] [id number] [address] [place] [address] Jan, [facility] [address] [id number] [address] [place] [address] Dec, [facility] [address] [id number] [address] [place] [address] Dec, Other chronic pain G89.29 ; Pain in right shoulder M25.511 and Liver enzyme elevation R74.8 [facility] [address] [id number] [address] [place] [address] Nov, Other chronic pain G89.29 an d Pain in right shoulder M25.511 [facility] [address] [facility] [id number] [address] [place] [address] October, [facility] [address] [facility] [id number] [address] [place] [address] October, Right shoulder pain, unspeci fied chronicity M25.511 [facility] [address] [facility] [id number] [address] [place] [address] Aug, Elevated liver enzymes R74.8 and Hyperlipidemia LDL goal <100 E78.5 [facility] [address] [facility] [id number] [address] [place] [address] Aug, [facility] [address] [facility] [id number] [address] [place] [address] Jul, [facility] [address] [facility] [id number] [address] [place] [address] Jul, Intractable chronic migraine without aura and with status migrainosus G43.711 ; Fever, unspecified fever cause R50.9 and Elevated liver enzymes R74.8 [facility] [address] [facility] [id number] [address] [place] [address] Jun, Difficulty urinating R39.198 and Moderate persistent asthma with exacerbation J45.41 [facility] [address] [facility] [id number] [address] [place] [address] Jun, [facility] [address] [facility] [id number] [address] [place] [address] Jun, Moderate persistent asthma w ith exacerbation J45.41 [facility] [address] [facility] [id number] [address] [place] [address] May, Elevated liver enzymes R74.8 and Hyperlipidemia LDL goal <100 E78.5 [place] [address] [facility] [id number] [address] [place] [address] May, Elevated lipids E78.5 [facility] [address] [facility] [id number] [address] [place] [address] Apr, Elevated liver enzymes R74.8 [facility] [address] [facility] [id number] [address] [place] [address] Apr, Elevated liver enzymes R74.8 [facility] [address] [facility] [id number] [address] [place] [address] Apr, Superior glenoid labrum lesi on of right shoulder, subsequent encounter S43.431D [facility] [address] [place] [id number] [place] [address] Apr, Hypokalemia E87.6 ; Major de pressive disorder, recurrent episode, moderate F33.1 ; Other abnormalities of breathing R06.89 and Dyspnea, unspecified R06.00 [facility] [address] [place] [id number] [place] [address] Mar, Moderate [facility] J[facility].40 [facility] [address] [address] Mar, Impingement syndrome of righ t shoulder M75.41 [facility] [address] [address] Jan, [place] [address] [place] [id number] [place] [address] Jan, Chronic migraine without aur a with status migrainosus, not intractable G43.701 ; Essential hypertension I10 ; Irritable bowel K58.9 ; Primary insomnia F51.01 and Hypokalemia E87.6 [facility] [address] [place] [id number] [place] [address] Dec, [place] [address] [place] [id number] [place] [id number] Dec, Pain in right shoulder M25.5 11 [facility] [address] [place] [id number] [place] [address] Dec, Essential hypertension I10 [facility] [address] [place] [id number] [place] [address] Dec, [facility] [address] [id number] [address] [place] [address] 30 Nov, 2016 Essential hypertension I10 [facility] [address] [id number] [address] [place] [address] 14 Nov, 2016 Pain in right shoulder M25.5 11 [facility] [address] [id number] [address] [place] [address] Nov, Pain in right shoulder M25.5 11 [facility] [address] [id number] [address] [place] [address] October, [facility] [address] [id number] [address] [place] [address] October, Pain in right shoulder M25.5 11 [facility] [address] [id number] [address] [place] [address] Sep, Arm pain, right M79.601 [facility] [address] [id number] [address] [place] [address] Sep, [facility] [address] [id number] [address] [place] [address] Sep, Abnormal glucose R73.09 and Elevated lipids E78.5 [facility] [address] [id number] [address] [place] [address] Sep, Abnormal glucose R73.09 and Elevated lipids E78.5 [facility] [address] [id number] [address] [place] [address] Aug, [facility] [address] [id number] [address] [place] [address] Aug, [facility] [address] [id number] [address] [place] [address] Aug, [facility] [address] [id number] [address] [place] [address] Aug, Constipation by delayed colo reny transit K59.01 ; Hypokalemia E87.6 ; Irritable bowel K58.9 ; Essential hypertension I10 ; Pain in right shoulder M25.511 ; Seizure disorder G40.909 and Screening for lipid disorders Z13.220 [place] [address] [facility] [id number] [address] [place] [id number] 28 Jul, 2016 Other chronic pain G89.29 an d Pain in right shoulder M25.511 [place] [address] [place] [id number] [address] [place] [address] 14 Jul, 2016 Biceps muscle strain, right, subsequent encounter S46.111D [facility] [place] [address] [place] [id number] [place] [address] 08 Jul, 2016 Arm pain, right M79.601 [place] [address] [place] [id number] [place] [address] Jun, [place] [address] [place] [id number] [place] [address] Jun, Acute non-recurrent frontal sinusitis J01.10 [place] [address] [place] [id number] [place] [address] May, Generalized abdominal pain R 10.84 ; Urinary tract infection without hematuria, site unspecified N39.0 ; Hypokalemia E87.6 ; Essential hypertension I10 ; Screening for lipid disorders Z13.220 ; Seizure R56.9 and Low back pain M54.5 [place] [address] [facility] [id number] [address] [place] [address] Apr, [facility] [address] [facility] [id number] [address] [place] [address] Feb, [place] [address] [place] [id number] [place] [address] Jan, [place] [address] [facility] [id number] [address] [place] [address] Dec, Constipation by delayed colo reny transit K59.01 ; Hypokalemia E87.6 ; Irritable bowel K58.9 and Nausea R11.0 [facility] [address] [facility] [id number] [address] [place] [address] Dec, Generalized abdominal pain R 10.84 [facility] [address] [facility] [id number] [address] [place] [address] Nov, [facility] [address] [place] [id number] [place] [address] Aug, Acute bronchitis J20.9 [place] [address] [facility] [id number] [address] [place] [address] Aug, [place] [address] [place] [id number] [place] [address] 08 Aug, 2015 Low back pain M54.5 ; Hypoka lemia E87.6 ; Chronic migraine without aura with status migrainosus, not intractable G43.701 ; Tremor, hereditary, benign G25.0 ; Irritable bowel K58.9 ; Essential hypertension I10 and Seizure R56.9 [place] [address] [place] [id number] [address] [place] [address] 07 Aug, 2015 [place] [address] [place] [id number] [place] [address] 09 Jul, 2015 [place] [address] [place] [id number] [place] [address] 03 Jul, 2015 Low back pain M54.5 ; Hypoka lemia E87.6 ; Chronic migraine without aura with status migrainosus, not intractable G43.701 ; Tremor, hereditary, benign G25.0 ; Irritable bowel K58.9 ; Essential hypertension I10 and Seizure R56.9 [place] [address] [place] [id number] [place] [address] Jun, Hypokalemia E87.6 [place] [address] [place] [id number] [place] [address] Jun, ADD (attention deficit disor dionicio) without hyperactivity F90.0 ; Generalized anxiety disorder F41.1 and Major depressive disorder, recurrent episode, moderate F33.1 [place] [address] [address] Jun, Low back pain M54.5 ; Hypoka lemia E87.6 ; Chronic migraine without aura with status migrainosus, not intractable G43.701 ; Tremor, hereditary, benign G25.0 ; Irritable bowel K58.9 ; Essential hypertension I10 and Seizure R56.9 [place] [address] [address] Jun, [place] [address] [address] May, [place] [address] [address] May, Low back pain M54.5 ; Hypoka lemia E87.6 ; Chronic migraine without aura with status migrainosus, not intractable G43.701 ; Tremor, hereditary, benign G25.0 ; Irritable bowel K58.9 ; Essential hypertension I10 ; Seizure R56.9 and Tinea capitis B35.0 [place] [address] [address] May, Low back pain M54.5 ; Hypoka lemia E87.6 ; Chronic migraine without aura with status migrainosus, not intractable G43.701 ; Tremor, hereditary, benign G25.0 ; Irritable bowel K58.9 ; Essential hypertension I10 ; Seizure R56.9 ; Otitis media, left H66.92 and Dysuria 788.1 [place] [address] [address] May, Tooth pain K08.8 [place] [address] [address] May, [place] [address] [address] May, Low back pain M54.5 ; Hypoka lemia E87.6 ; Chronic migraine without aura with status migrainosus, not intractable G43.701 ; Tremor, hereditary, benign G25.0 ; Irritable bowel K58.9 and Essential hypertension I10 [facility] [address] [id number] [address] [place] [id number] 18 Apr, 2015 Low back pain M54.5 ; Hypoka lemia E87.6 ; Chronic migraine without aura with status migrainosus, not intractable G43.701 ; Tremor, hereditary, benign G25.0 and Irritable bowel K58.9 [facility] [address] [id number] [address] [place] [address] Apr, Low back pain M54.5 [facility] [address] [facility] [id number] [address] [place] [address] Mar, [facility] [address] [facility] [id number] [address] [place] [address] Mar, Irritable bowel syndrome wit h diarrhea K58.0 [facility] [address] [facility] [id number] [address] [place] [address] Mar, [facility] [address] [facility] [id number] [address] [place] [id number] Feb, [facility] [address] [facility] [id number] [address] [place] [address] Feb, [facility] [address] [facility] [id number] [address] [place] [id number] Feb, Irritable bowel syndrome 564 .1 ; Lumbago 724.2 and Cervical pain (neck) 723.1 [facility] [address] [facility] [id number] [address] [place] [address] Dec, Major depressive disorder, r ecurrent episode, moderate 296.32 and Generalized anxiety disorder 300.02 [facility] [address] [facility] [id number] [address] [place] [address] Nov, [place] [address] [id number] [address] [place] [address] Nov, Major depressive disorder, r ecurrent episode, moderate 296.32 [facility] [address] [id number] [address] [place] [address] 08 Nov, 2014 Constipation 564.00 ; Nausea & vomiting 787.01 and Abdominal pain 789.00 [facility] [address] [id number] [address] [place] [address] Nov, [facility] [address] [id number] [address] [place] [id number] October, [facility] [address] [id number] [address] [place] [phone] October, [facility] [address] [facility] [id number] [address] [place] [id number] October, [facility] [address] [id number] [address] [place] [id number] October, [facility] [address] [facility] [id number] [address] [place] [id number] Sep, Dysuria 788.1 [facility] [address] [facility] [id number] [address] [place] [id number] Sep, [facility] [address] [id number] [address] [place] [id number] Sep, [facility] [address] [id number] [address] [place] [id number] Sep, [facility] [address] [facility] [id number] [address] [place] [id number] Sep, [facility] [address] [id number] [address] [place] [id number] Aug, [facility] [address] [facility] [id number] [address] [place] [id number] Aug, [facility] [address] [id number] [address] [place] [address] [place] [id number] Aug, [facility] [address] [id number] [address] [place] [address], [place] [id number] Aug, [facility] [address] [id number] [address] [place] [address], [place] [id number] Aug, [facility] [address] [id number] [address] [place] [address], [place] [id number] Aug, [facility] [address] [id number] [address] [place] [address], [place] [address] Aug, [facility] [address] [id number] [address] [place] [address], [place] [id number] Aug, [facility] [address] [id number] [address] [place] [address], [place] [id number] Aug, [facility] [address] [id number] [address] [place] [address], [place] [id number] Aug, [facility] [address] [id number] [address] [place] [address], [place] [address] Jun, [facility] [address] [id number] [address] [place] [address], [place] [id number] Jun, [facility] [address] [id number] [address] [place] [address], [place] [id number] Jun, [facility] [address] [id number] [address] [place] [address], [place] [address] Jun, [facility] [address] [id number] [address] [place] [address], [place] [address] May, [facility] [address] [id number] [address] [place] [address], [place] [id number] May, [facility] [address] [id number] [address] [place] [address], [place] [id number] May, [facility] [address] [id number] [address] [place] [address], [place] [id number] May, [facility] [address] [id number] [address] [place] [address], [place] [address] May, [facility] [address] [id number] [address] [place] [address], [place] [address] May, [facility] [address] [id number] [address] [place] [address], [place] [address] May, [facility] [address] [id number] [address] [place] [address], [place] [id number] May, [facility] [address] [id number] [address] [place] [address], [place] [address] Mar, [facility] [address] [id number] [address] [place] [address], [place] [address] Mar, [facility] [address] [id number] [address] [place] [address], [place] [id number] Mar, [facility] [address] [id number] [address] [place] [address], [place] [id number] Mar, [facility] [address] [id number] [address] [place] [address], [place] [id number] Mar, [facility] [address] [id number] [address] [place] [address], [place] [id number] Mar, [facility] [address] [id number] [address] [place] [address], [place] [id number] Mar, [facility] [address] [id number] [address] [place] [address], [place] [address] Mar, [facility] [address] [id number] [address] [place] [address], [place] [id number] Mar, [facility] [address] [id number] [address] [place] [address], [place] [address] Mar, [facility] [address] [id number] [address] [place] [address], [place] [address] Mar, [facility] [address] [id number] [address] [place] [address], [place] [address] Mar, [facility] [address] [id number] [facility] [place] [address] Feb, [facility] [address] [id number] [address] [place] [address], [place] [id number] Feb, [facility] [address] [id number] [address] [place] [address], [place] [address] Feb, [facility] [address] [id number] [address] [place] [address], [place] [address] Feb, [facility] [address] [id number] [address] [place] [address], [place] [address] Feb, [facility] [address] [id number] [address] [place] [address], [place] [address] Feb, [facility] [address] [id number] [address] [place] [address], [place] [address] Jan, [facility] [address] [id number] [address] [place] [address], [place] [id number] Jan, [facility] [address] [id number] [address] [place] [address], [place] [address] Jan, [facility] [address] [id number] [address] [place] [address], [place] [address] Jan, [facility] [address] [id number] [address] [place] [address], [place] [address] Jan, [facility] [address] [id number] [address] [place] [address], [place] [address] Jan, [facility] [address] [id number] [address] [place] [address], [place] [address] Jan, [facility] [address] [id number] [address] [place] [address], [place] [address] Jan, [facility] [address] [id number] [address] [place] [address], [place] [address] Dec, [facility] [address] [id number] [facility] [place] [address] Dec, [facility] [address] [id number] [facility] [place] [address] Dec, [facility] [address] [id number] [facility] [place] [address] Dec, [facility] [address] [id number] [address] [place] [address], [place] [address] Dec, [facility] [address] [id number] [address] [place] [address], [place] [address] Dec, [facility] [address] [id number] [address] [place] [address], [place] [address] Dec, [facility] [address] [id number] [address] [place] [address], [place] [address] Dec, [facility] [address] [id number] [address] [place] [address], [place] [address] October, [facility] [address] [id number] [address] [place] [address], [place] [address] October, [facility] [address] [id number] [address] [place] [address], [place] [address] Sep, [facility] [address] [id number] [address] [place] [address], [place] [address] Sep, [facility] [address] [id number] [address] [place] [address], [place] [address] Sep, [facility] [address] [id number] [address] [place] [address], [place] [address] Sep, [facility] [address] [id number] [address] [place] [address], [place] [address] Sep, [facility] [address] [id number] [address] [place] [address], [place] [address] Sep, [facility] [address] [id number] [address] [place] [address], [place] [id number] Sep, [facility] [address] [id number] [facility] [place] [address] Sep, [facility] [address] [id number] [address] [place] [address], [place] [address] Sep, [facility] [address] [id number] [address] [place] [address], [place] [address] Sep, [facility] [address] [id number] [address] [place] [address], [place] [address] Sep, [facility] [address] [id number] [address] [place] [address], [place] [address] Sep, [facility] [address] [id number] [address] [place] [address], [place] [id number] Aug, [facility] [address] [id number] [address] [place] [address], [place] [id number] Aug, [facility] [address] [id number] [address] [place] [address], [place] [address] Aug, [facility] [address] [id number] [address] [place] [address], [place] [address] Jun, [facility] [address] [id number] [address] [place] [address], [place] [address] Jun, [facility] [address] [id number] [address] [place] [address], [place] [address] Jun, [facility] [address] [id number] [address] [place] [address], [place] [address] Jun, [facility] [address] [id number] [address] [place] [address], [place] [address] Jun, [facility] [address] [id number] [address] [place] [address], [place] [address] Jun, [facility] [address] [id number] [address] [place] [address], [place] [address] Jun, [facility] [address] [id number] [address] [address] Jun, [facility] [address] [id number] [address] [place] [address], [place] [address] Jun, [facility] [address] [id number] [address] [place] [address], [place] [address] Jun, [facility] [address] [id number] [address] [place] [address], [place] [address] May, [facility] [address] [id number] [address] [place] [id number] May, [facility] [address] [id number] [address] [place] [address], [place] [address] May, [facility] [address] [id number] [address] [place] [address], [place] [id number] May, [facility] [address] [id number] [address] [place] [address], [place] [address] Apr, [facility] [address] [id number] [address] [place] [address], [place] [address] Apr, [facility] [address] [id number] [address] [place] [address], [place] [address] Apr, [facility] [address] [id number] [address] [place] [address], [place] [address] Apr, [facility] [address] [id number] [address] [place] [id number] Apr, [facility] [address] [id number] [address] [place] [id number] Apr, [facility] [address] [id number] [address] [place] [address], [place] [id number] Apr, [facility] [address] [id number] [address] [place] [address], [place] [address] Apr, [facility] [address] [id number] [address] [place] [address], [place] [address] Mar, [facility] [address] [id number] [address] [place] [address], [place] [address] Mar, [facility] [address] [id number] [address] [place] [address], [place] [address] Mar, [facility] [address] [id number] [address] [place] [address], [place] [address] Mar, [facility] [address] [id number] [address] [place] [address], [place] [address] Mar, [facility] [address] [id number] [address] [place] [address], [place] [id number] Feb, [facility] [address] [id number] [address] [place] [address], [place] [address] Feb, [facility] [address] [id number] [address] [place] [address], [place] [address] 05 Feb, 2013 [facility] [address] [id number] [address] [place] [address], [place] [address] Feb, [facility] [address] [id number] [address] [place] [address], [place] [address] Feb, [facility] [address] [id number] [address] [place] [address], [place] [address] Jan, [facility] [address] [id number] [address] [place] [address], [place] [address] Jan, [facility] [address] [id number] [address] [place] [address], [place] [address] Nov, [facility] [address] [id number] [address] [place] [address], [place] [id number] Nov, [facility] [address] [id number] [address] [place] [address], [place] [address] Nov, [facility] [address] [id number] [address] [place] [address], [place] [address] Nov, [facility] [address] [id number] [address] [place] [address], [place] [address] October, [facility] [address] [id number] [address] [place] [address], [place] [address] Sep, [facility] [address] [id number] [address] [place] [address], [place] [id number] Aug, [facility] [address] [id number] [address] [place] [address], [place] [address] Aug, [facility] [address] [id number] [address] [place] [address], [place] [address] Aug, [facility] [address] [id number] [address] [place] [address], [place] [address] Aug, [facility] [address] [id number] [address] [place] [address], [place] [address] Jul, [facility] [address] [id number] [address] [place] [address], [place] [address] Jun, [facility] [address] [id number] [address] [place] [id number] Jun, [facility] [address] [id number] [address] [place] [id number] May, [facility] [address] [id number] [address] [place] [id number] May, [facility] [address] [id number] [address] [place] [id number] Mar, [facility] [address] [id number] [address] [place] [id number] Mar, [facility] [address] [id number] [address] [place] [id number] Mar, [facility] [address] [id number] [address] [place] [address], [place] [id number] Mar, [facility] [address] [id number] [address] [place] [id number] Mar, [facility] [address] [id number] [address] [place] [id number] 23 Mar, 2011 [facility] [address] [id number] [address] [place] [address], [place] [address] 23 Mar, 2011 [facility] [address] [id number] [address] [place] [id number] 23 Mar, 2011 [facility] [address] [id number] [address] [place] [address], [place] [address] 22 Mar, 2012 [facility] [address] [id number] [address] [place] [id number] 20 Mar, 2011 [facility] [address] [id number] [address] [place] [address], [place] [address] 20 Mar, 2012 [facility] [address] [id number] [address] [place] [id number] 17 Mar, 2012 [facility] [address] [id number] [address] [place] [id number] 17 Mar, 2012 [facility] [address] [id number] [address] [place] [id number] 15 Mar, 2012 [facility] [address] [id number] [address] [place] [id number] 15 Mar, 2012 [facility] [address] [id number] [address] [place] [id number] 15 Mar, 2012 [facility] [address] [id number] [address] [place] [id number] 15 Mar, 2012 [facility] [address] [id number] [address] [place] [id number] 11 Mar, 2012 [facility] [address] [id number] [address] [place] [id number] 11 Mar, 2012 [facility] [address] [id number] [address] [place] [id number] 08 Mar, 2012 [facility] [address] [id number] [address] [place] [id number] 08 Mar, 2012 [facility] [address] [id number] [facility] [place] [address] 03 Mar, 2012 [facility] [address] [id number] [address] [place] [address], [place] [id number] 01 Mar, 2012 [facility] [address] [id number] [address] [place] [address], [place] [id number] 19 Feb, 2011 [facility] [address] [id number] [address] [place] [address], [place] [id number] 18 Sep, 2011 [facility] [address] [id number] [address] [place] [address], [place] [id number] 17 Feb, 2011 [facility] [address] [id number] [address] [place] [address], [place] [id number] 14 Feb, 2012 [facility] [address] [id number] [address] [place] [address], [place] [id number] 14 Feb, 2012 [facility] [address] [id number] [address] [place] [address], [place] [id number] 12 Feb, 2012 [facility] [address] [id number] [address] [place] [address], [place] [address] 10 Feb, 2012 [facility] [address] [id number] [address] [place] [address], [place] [address] 31 Jan, 2012 [facility] [address] [id number] [address] [place] [address], [place] [address] 30 Jan, 2012 [facility] [address] [id number] [address] [place] [address], [place] [id number] 22 Jan, 2012 [facility] [address] [id number] [address] [place] [address], [place] [address] Jan, [facility] [address] [id number] [address] [place] [address], [place] [address] Jan, [facility] [address] [id number] [address] [place] [address], [place] [address] Jan, [facility] [address] [id number] [address] [place] [address], [place] [id number] 17 Jan, 2012 [facility] [address] [id number] [facility] [place] [address] 16 Jan, 2012 [facility] [address] [id number] [address] [place] [address], [place] [id number] 13 Jan, 2012 [facility] [address] [id number] [address] [place] [address], [place] [id number] Jan, [facility] [address] [id number] [address] [place] [address], [place] [id number] 26 Dec, 2011 [facility] [address] [id number] [address] [place] [address], [place] [id number] 24 Dec, 2011 [facility] [address] [id number] [address] [place] [address], [place] [id number] 23 Dec, 2011 [facility] [address] [id number] [address] [place] [address], [place] [id number] Dec, [facility] [address] [id number] [address] [place] [address], [place] [id number] 18 Dec, 2011 [facility] [address] [id number] [address] [place] [address], [place] [id number] 17 Dec, 2011 [facility] [address] [id number] [address] [place] [address], [place] [id number] 16 Dec, 2011 [facility] [address] [id number] [address] [place] [address], [place] [id number] 14 Dec, 2011 [facility] [address] [id number] [address] [place] [address], [place] [id number] Dec, [facility] [address] [id number] [address] [place] [address], [place] [id number] Dec, [facility] [address] [id number] [address] [place] [address], [place] [id number] 06 Dec, 2011 [facility] [address] [id number] [address] [place] [address], [place] [id number] Nov, [facility] [address] [id number] [address] [place] [id number] 27 Nov, 2011 [facility] [address] [id number] [address] [place] [id number] 25 Nov, 2011 [facility] [address] [id number] [address] [place] [id number] 23 Nov, 2011 [facility] [address] [facility] [id number] [address] [place] [id number] Nov, [facility] [address] [facility] [id number] [address] [place] [id number] 20 Nov, 2011 [facility] [address] [facility] [id number] [address] [place] [id number] Nov, [facility] [address] [facility] [id number] [address] [place] [id number] Nov, [facility] [address] [facility] [id number] [address] [place] [id number] Nov, [facility] [address] [facility] [id number] [address] [place] [id number] 05 Nov, 2011 [facility] [address] [facility] [id number] [address] [place] [id number] October, IMMUNIZATIONS No Known Immunizations SOCIAL HISTORY Never Assessed REASON FOR VISIT PLAN OF CARE VITAL SIGNS MEDICATIONS No [...]
--- OUTSIDE RECORDS SUMMARY | 2019-11-15 09:39 | XMS REPORT ---
Author Author Maggy Ballesteros Doctor Organization [facility] Address Unknown Phone Unavailable Care Team Providers Care Merchandise Collector Name Role Phone Migration, Doctor Unavailable Unavailable PROBLEMS Type Condition ICD9-CM Code EMY31-TX Code Onset Dates Condition S tatus SNOMED Code Problem Elevated liver enzymes R74.8 Active 845801008 Problem Abnormal glucose R73.09 Active 102 502721 Problem Major depressive disorder, recurrent episode, moderate F33.1 Active 315222080 Problem Hyperlipidemia LDL goal <100 E78.5 A ctive 46258843 Problem Other chronic pain G89.29 Active 8 1452767 Problem Intractable chronic migraine without aura and wi th status migrainosus G43.711 Active 056131527 Problem Essential hypertension I10 Active 74712653 Problem Hypokalemia E87.6 Active 26573278 Problem Other chronic pain G89.29 Active 8 9239104 Problem 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 Active 69977423 Problem Primary insomnia F51.01 Active 397 2004 Problem Seizure disorder G40.909 Active 128 944501 Problem Moderate persistent asthma with exacerbation J45.4 1 Active 406066745 Problem Moderate persistent asthma without complication J4 5.40 Active 072422377 Problem Reflux gastritis K29.60 Active 729 78519 Problem Irritable bowel syndrome with constipation K58.1 Active 537277019 Problem Lumbago with sciatica, left side M54.42 Active 423767609 Problem Migraine with aura and without status migrainosu s, not intractable G43.109 Active 3468368 Problem Irritable bowel K58.9 Active 1074 3008 Problem History of hypokalemia Z86.39 Active 925117025 Problem Tremor, hereditary, benign G25.0 Act caitlin 013426790 Problem Chronic migraine without aura with statu s migrainosus, not intractable G43.701 Active 175040863 Problem Lumbago with sciatica, right side M54.41 Active 334789150478569 Problem Mood disorder F39 Active 733823 05 Problem RLS (restless legs syndrome) G25.81 A ctive 65884496 Problem Aneurysm I72.9 Active 51491931 ALLERGIES No Information ENCOUNTERS Encounter Location Date Diagnosis [facility] [address] [address] 07 Aug, 2019 Influenza A J10.1 [facility] [place] [address] [address] Aug, [place] [address] [address] 02 Aug, 2019 Tinea pedis of both feet B35 .3 and Migraine with aura and without status migrainosus, not intractable G43.109 [place] [address] [address] 21 Jul, 2019 [facility] [address] [address] 19 Jul, 2019 Rib pain on left side R07.81 [place] [address] [address] 10 Jul, 2019 Seizure disorder G40.909 and Aneurysm I72.9 [place] [address] [address] 07 Jul, 2019 [place] [address] [address] 06 Jul, 2019 Seizure disorder G40.909 ; A neurysm I72.9 ; Migraine with aura and without status migrainosus, not intractable G43.109 and History of hypokalemia Z86.39 [place] [address] [address] 04 Jul, 2019 [place] [address] [address] Jun, [place] [address] [address] Jun, Seizures R56.9 ; Migraine wi th aura and without status migrainosus, not intractable G43.109 ; Other chronic pain G89.29 and Pain in right shoulder M25.511 [facility] [place] [address] [id number] [address] [place] [address] Jun, [facility] [place] [address] [id number] [address] [place] [address] May, Primary insomnia F51.01 ; In tractable chronic migraine without aura and with status migrainosus G43.711 and Aneurysm I72.9 [facility] [place] [address] [id number] [address] [place] [address] Apr, RLS (restless legs syndrome) G25.81 and Mood disorder F39 [facility] [place] [address] [id number] [address] [place] [address] Apr, [facility] [place] [address] [id number] [address] [place] [address] Mar, Other chronic pain G89.29 an d Pain in right shoulder M25.511 [facility] [place] [address] [id number] [address] [place] [address] Mar, Acute left ankle pain M25.57 2 [facility] [place] [address] [id number] [address] [place] [address] Mar, [facility] [place] [address] [id number] [address] [place] [address] Mar, Acute left ankle pain M25.57 2 [facility] [place] [address] [id number] [address] [place] [address] Mar, Major depressive disorder, r ecurrent episode, moderate F33.1 [facility] [place] [address] [id number] [address] [place] [address] Mar, Major depressive disorder, r ecurrent episode, moderate F33.1 ; Lumbago with sciatica, left side M54.42 and Lumbago with sciatica, right side M54.41 [place] [address] [facility] [id number] [address] [place] [address] Mar, [facility] [place] [address] [place] [id number] [address] [place] [address] Mar, [facility] [place] [address] [place] [id number] [address] [place] [address] Mar, Major depressive disorder, r ecurrent episode, moderate F33.1 ; Lumbago with sciatica, left side M54.42 and Lumbago with sciatica, right side M54.41 [facility] [place] [address] [place] [id number] [address] [place] [address] Feb, Viral gastroenteritis A08.4 [facility] [address] [place] [id number] [address] [place] [address] Feb, Nausea and vomiting, intract ability of vomiting not specified, unspecified vomiting type R11.2 [place] [address] [address] [place] [id number] [address] [place] [address] Feb, [facility] [place] [address] [address] Feb, [place] [address] [place] [id number] [address] [place] [address] Feb, C. difficile colitis A04.72 ; Mood disorder F39 ; Lumbago with sciatica, left side M54.42 ; Lumbago with sciatica, right side M54.41 and Other chronic pain G89.29 [facility] [place] [address] [place] [id number] [address] [place] [address] Jan, [facility] [address] [place] [id number] [address] [place] [address] Jan, Nausea & vomiting R11.2 [facility] [place] [address] [place] [id number] [address] [place] [address] Dec, Irritable bowel syndrome wit h constipation K58.1 ; Other chronic pain G89.29 and Pain in right shoulder M25.511 [facility] [address] [facility] [id number] [address] [place] [address] Dec, Generalized abdominal pain R 10.84 and Nausea and vomiting, intractability of vomiting not specified, unspecified vomiting type R11.2 [facility] [address] [place] [id number] [address] [place] [address] Dec, [facility] [place] [address] [address] Dec, Dysuria R30.0 and Irritable bowel K58.9 [facility] [address] [facility] [id number] [address] Sep, Chronic nausea R11.0 [place] [address] [place] [id number] [place] [address] Sep, [place] [address] [address] Sep, Viral gastroenteritis A08.4 [facility] [address] [place] [id number] [address] [place] [address] Aug, Headache R51 ; Viral upper r espiratory tract infection J06.9 and Nausea R11.0 [facility] [address] [place] [id number] [address] [place] [address] Jun, Reflux gastritis K29.60 [place] [address] [address] Jun, [place] [address] [place] [id number] [address] [place] [address] May, [place] [address] [address] May, [place] [address] [address] Apr, Bowel habit changes R19.4 an d Acute cystitis without hematuria N30.00 [place] [address] [place] [address] Apr, Pain in right shoulder M25.5 11 [facility] [place] [address] [id number] [address] [place] [address] Apr, [facility] [place] [address] [id number] [address] [place] [address] Mar, [facility] [place] [address] [id number] [address] [place] [address] Mar, [facility] [place] [address] [id number] [address] [place] [address] Mar, [facility] [place] [address] [id number] [address] [place] [address] Mar, [facility] [place] [address] [id number] [address] [place] [address] 14 Feb, 2018 [facility] [place] [address] [id number] [address] [place] [address] Feb, [facility] [place] [address] [id number] [address] [place] [address] 05 Feb, 2018 [facility] [place] [address] [id number] [address] [place] [address] Jan, [facility] [place] [address] [id number] [address] [place] [address] Dec, [facility] [place] [address] [id number] [address] [place] [address] Dec, Other chronic pain G89.29 ; Pain in right shoulder M25.511 and Liver enzyme elevation R74.8 [facility] [place] [address] [id number] [address] [place] [address] Nov, Other chronic pain G89.29 an d Pain in right shoulder M25.511 [facility] [place] [address] [id number] [address] [place] [address] October, [facility] [address] [id number] [address] [place] [address] October, Right shoulder pain, unspeci fied chronicity M25.511 [facility] [place] [address] [place] [id number] [address] [place] [address] Aug, Elevated liver enzymes R74.8 and Hyperlipidemia LDL goal <100 E78.5 [facility] [place] [address] [place] [id number] [address] [place] [address] Aug, [facility] [place] [address] [place] [id number] [place] [address] Jul, [facility] [place] [address] [place] [id number] [place] [address] Jul, Intractable chronic migraine without aura and with status migrainosus G43.711 ; Fever, unspecified fever cause R50.9 and Elevated liver enzymes R74.8 [place] [address] [address] Jun, Difficulty urinating R39.198 and Moderate persistent asthma with exacerbation J45.41 [place] [address] [place] [id number] [address] [place] [address] Jun, [place] [address] [place] [id number] [address] [place] [address] Jun, Moderate persistent asthma w ith exacerbation J45.41 [place] [address] [place] [id number] [address] [place] [address] May, Elevated liver enzymes R74.8 and Hyperlipidemia LDL goal <100 E78.5 [place] [address] [facility] [id number] [address] [place] [address] May, Elevated lipids E78.5 [place] [address] [place] [id number] [address] [place] [address] Apr, Elevated liver enzymes R74.8 [place] [address] [place] [id number] [address] [place] [address] Apr, Elevated liver enzymes R74.8 [place] [address] [facility] [id number] [address] [place] [address] Apr, Superior glenoid labrum lesi on of right shoulder, subsequent encounter S43.431D [facility] [place] [address] [facility] [id number] [address] [place] [address] Apr, Hypokalemia E87.6 ; Major de pressive disorder, recurrent episode, moderate F33.1 ; Other abnormalities of breathing R06.89 and Dyspnea, unspecified R06.00 [facility] [address] [facility] [id number] [address] [place] [address] Mar, Moderate persistent asthma w [facility] complication J45.40 [place] [address] [address] [place] [id number] [place] [address] Mar, Impingement syndrome of righ t shoulder M75.41 [place] [address] [address] Jan, [place] [address] [place] [id number] [place] [address] Jan, Chronic migraine without aur a with status migrainosus, not intractable G43.701 ; Essential hypertension I10 ; Irritable bowel K58.9 ; Primary insomnia F51.01 and Hypokalemia E87.6 [place] [address] [place] [id number] [address] [place] [address] Dec, [place] [address] [place] [id number] [address] [place] [address] Dec, Pain in right shoulder M25.5 11 [place] [address] [place] [id number] [address] [place] [address] Dec, Essential hypertension I10 [place] [address] [place] [id number] [address] [place] [address] Dec, [place] [address] [place] [id number] [address] [place] [address] Nov, Essential hypertension I10 [facility] [place] [address] [id number] [address] [place] [address] 14 Nov, 2016 Pain in right shoulder M25.5 11 [facility] [place] [address] [id number] [address] [place] [address] 13 Nov, 2016 Pain in right shoulder M25.5 11 [facility] [place] [address] [id number] [address] [place] [address] October, [facility] [place] [address] [id number] [address] [place] [address] October, Pain in right shoulder M25.5 11 [facility] [place] [address] [id number] [address] [place] [address] Sep, Arm pain, right M79.601 [facility] [place] [address] [id number] [address] [place] [address] Sep, [facility] [place] [address] [id number] [address] [place] [address] Sep, Abnormal glucose R73.09 and Elevated lipids E78.5 [facility] [place] [address] [id number] [address] [place] [address] Sep, Abnormal glucose R73.09 and Elevated lipids E78.5 [facility] [place] [address] [facility] [id number] [address] [place] [address] Aug, [facility] [place] [address] [id number] [address] [place] [address] Aug, [facility] [place] [address] [id number] [address] [place] [address] Aug, [facility] [place] [address] [facility] [id number] [address] [place] [address] Aug, Constipation by delayed colo reny transit K59.01 ; Hypokalemia E87.6 ; Irritable bowel K58.9 ; Essential hypertension I10 ; Pain in right shoulder M25.511 ; Seizure disorder G40.909 and Screening for lipid disorders Z13.220 [place] [address] [place] [id number] [address] [place] [address] 28 Jul, 2016 Other chronic pain G89.29 an d Pain in right shoulder M25.511 [place] [address] [place] [id number] [address] [place] [address] 14 Jul, 2016 Biceps muscle strain, right, subsequent encounter S46.111D [facility] [place] [address] [place] [id number] [place] [address] 08 Jul, 2016 Arm pain, right M79.601 [place] [address] [address] Jun, [place] [address] [address] Jun, Acute non-recurrent frontal sinusitis J01.10 [place] [address] [address] 14 May, 2016 Generalized abdominal pain R 10.84 ; Urinary tract infection without hematuria, site unspecified N39.0 ; Hypokalemia E87.6 ; Essential hypertension I10 ; Screening for lipid disorders Z13.220 ; Seizure R56.9 and Low back pain M54.5 [place] [address] [place] [id number] [address] [place] [address] Apr, [facility] [place] [address] [place] [id number] [address] [place] [address] Feb, [place] [address] [place] [id number] [address] [place] [address] Jan, [place] [address] [address] Dec, Constipation by delayed colo reny transit K59.01 ; Hypokalemia E87.6 ; Irritable bowel K58.9 and Nausea R11.0 [facility] [address] [place] [id number] [address] [place] [address] Dec, Generalized abdominal pain R 10.84 [facility] [place] [address] [address] Nov, [facility] [address] [address] Aug, Acute bronchitis J20.9 [place] [address] [address] Aug, [place] [address] [address] Aug, Low back pain M54.5 ; Hypoka lemia E87.6 ; Chronic migraine without aura with status migrainosus, not intractable G43.701 ; Tremor, hereditary, benign G25.0 ; Irritable bowel K58.9 ; Essential hypertension I10 and Seizure R56.9 [place] [address] [address] Aug, [place] [address] [address] Jul, [place] [address] [address] 03 Jul, 2015 Low back pain M54.5 ; Hypoka lemia E87.6 ; Chronic migraine without aura with status migrainosus, not intractable G43.701 ; Tremor, hereditary, benign G25.0 ; Irritable bowel K58.9 ; Essential hypertension I10 and Seizure R56.9 [place] [address] [place] [id number] [address] [place] [address] Jun, Hypokalemia E87.6 [place] [address] [address] Jun, ADD (attention deficit disor dionicio) without hyperactivity F90.0 ; Generalized anxiety disorder F41.1 and Major depressive disorder, recurrent episode, moderate F33.1 [place] [address] [address] Jun, Low back pain M54.5 ; Hypoka lemia E87.6 ; Chronic migraine without aura with status migrainosus, not intractable G43.701 ; Tremor, hereditary, benign G25.0 ; Irritable bowel K58.9 ; Essential hypertension I10 and Seizure R56.9 [place] [id number] [place] [address] Jun, [place] [address] [address] May, [place] [address] [address] May, Low back pain M54.5 ; Hypoka lemia E87.6 ; Chronic migraine without aura with status migrainosus, not intractable G43.701 ; Tremor, hereditary, benign G25.0 ; Irritable bowel K58.9 ; Essential hypertension I10 ; Seizure R56.9 and Tinea capitis B35.0 [place] [address] [place] [id number] [address] [place] [address] 17 May, 2015 Low back pain M54.5 ; Hypoka lemia E87.6 ; Chronic migraine without aura with status migrainosus, not intractable G43.701 ; Tremor, hereditary, benign G25.0 ; Irritable bowel K58.9 ; Essential hypertension I10 ; Seizure R56.9 ; Otitis media, left H66.92 and Dysuria 788.1 [place] [address] [place] [id number] [address] [place] [address] May, Tooth pain K08.8 [place] [address] [address] May, [place] [address] [address] May, Low back pain M54.5 ; Hypoka lemia E87.6 ; Chronic migraine without aura with status migrainosus, not intractable G43.701 ; Tremor, hereditary, benign G25.0 ; Irritable bowel K58.9 and Essential hypertension I10 [facility] [place] [address] [id number] [address] [place] [address] Apr, Low back pain M54.5 ; Hypoka lemia E87.6 ; Chronic migraine without aura with status migrainosus, not intractable G43.701 ; Tremor, hereditary, benign G25.0 and Irritable bowel K58.9 [facility] [place] [address] [id number] [address] [place] [address] Apr, Low back pain M54.5 [facility] [place] [address] [id number] [address] [place] [address] Mar, [facility] [place] [address] [facility] [id number] [address] [place] [address] Mar, Irritable bowel syndrome wit h diarrhea K58.0 [facility] [place] [address] [facility] [id number] [address] [place] [address] Mar, [facility] [place] [address] [id number] [address] [place] [address] Feb, [facility] [place] [address] [facility] [id number] [address] [place] [address] 08 Feb, 2015 [facility] [place] [address] [facility] [id number] [address] [place] [address] 03 Feb, 2015 Irritable bowel syndrome 564 .1 ; Lumbago 724.2 and Cervical pain (neck) 723.1 [facility] [place] [address] [facility] [id number] [address] [place] [address] Dec, Major depressive disorder, r ecurrent episode, moderate 296.32 and Generalized anxiety disorder 300.02 [facility], [place] [address] [facility] [id number] [address] [place] [id number] Nov, [facility] [place] [address] [facility] [id number] [address] [place] [id number] Nov, Major depressive disorder, r ecurrent episode, moderate 296.32 [facility] [address] [id number] [address] [place] [id number] 08 Nov, 2014 Constipation 564.00 ; Nausea & vomiting 787.01 and Abdominal pain 789.00 [facility] [address] [id number] [address] [place] [phone] Nov, [facility] [address] [id number] [address] [place] [id number] October, [facility] [address] [id number] [address] [place] [id number] October, [facility] [address] [id number] [address] [place] [phone] October, [facility] [address] [id number] [address] [place] [id number] October, [facility] [address] [id number] [address] [place] [phone] Sep, Dysuria 788.1 [facility] [address] [id number] [address] [place] [id number] Sep, [facility] [address] [id number] [address] [place] [address] Sep, [facility] [address] [facility] [id number] [address] [place] [address] Sep, [facility] [address] [id number] [address] [place] [address] Sep, [facility] [address] [id number] [address] [place] [address] Aug, [facility] [address] [id number] [address] [place] [address] Aug, [facility] [address] [id number] [address] [place] [address] Aug, [facility] [address] [id number] [address] [place] [address] Aug, [facility] [address] [id number] [address] [place] [address], [place] [address] Aug, [facility] [address] [id number] [address] [place] [address], [place] [address] Aug, [facility] [address] [id number] [address] [place] [address], [place] [address] Aug, [facility] [address] [id number] [address] [place] [address], [place] [address] Aug, [facility] [address] [id number] [address] [place] [address], [place] [address] Aug, [facility] [address] [id number] [address] [place] [address], [place] [address] Aug, [facility] [address] [id number] [address] [place] [address], [place] [address] Jun, [facility] [address] [id number] [address] [place] [address], [place] [address] Jun, [facility] [address] [id number] [address] [place] [address], [place] [address] Jun, [facility] [address] [id number] [address] [place] [address], [place] [address] Jun, [facility] [address] [id number] [address] [place] [address], [place] [address] May, [facility] [address] [id number] [address] [place] [address], [place] [address] May, [facility] [address] [id number] [address] [place] [address], [place] [address] May, [facility] [address] [id number] [address] [place] [address], [place] [address] May, [facility] [address] [id number] [address] [place] [address], [place] [address] May, [facility] [address] [id number] [address] [place] [address], [place] [address] May, [facility] [address] [id number] [address] [place] [address], [place] [address] May, [facility] [address] [id number] [address] [place] [address], [place] [address] May, [facility] [address] [id number] [address] [place] [address], [place] [address] Mar, [facility] [address] [id number] [address] [place] [address], [place] [address] Mar, [facility] [address] [id number] [address] [place] [address], [place] [address] Mar, [facility] [address] [id number] [address] [place] [address], [place] [address] Mar, [facility] [address] [id number] [address] [place] [address], [place] [address] Mar, [facility] [address] [id number] [address] [place] [address], [place] [address] Mar, [facility] [address] [id number] [address] [place] [address], [place] [address] Mar, [facility] [address] [id number] [address] [place] [address], [place] [address] Mar, [facility] [address] [id number] [address] [place] [address], [place] [address] Mar, [facility] [address] [id number] [address] [place] [address], [place] [address] Mar, [facility] [address] [id number] [address] [place] [address], [place] [address] Mar, [facility] [address] [id number] [address] [place] [address], [place] [address] Mar, [facility] [address] [id number] [address] [place] [address], [place] [address] 24 Feb, 2014 [facility] [address] [id number] [facility] [place] [address] Feb, [facility] [address] [id number] [facility] [place] [address] Feb, [facility] [address] [id number] [facility] [place] [address] Feb, [facility] [address] [id number] [address] [place] [address], [place] [address] Feb, [facility] [address] [id number] [address] [place] [address], [place] [address] Feb, [facility] [address] [id number] [address] [place] [address], [place] [address] Jan, [facility] [address] [id number] [address] [place] [address], [place] [address] Jan, [facility] [address] [id number] [address] [place] [address], [place] [address] Jan, [facility] [address] [id number] [address] [place] [address], [place] [address] Jan, [facility] [address] [id number] [address] [place] [address], [place] [address] Jan, [facility] [address] [id number] [address] [place] [address], [place] [address] Jan, [facility] [address] [id number] [address] [place] [address], [place] [address] Jan, [facility] [address] [id number] [address] [place] [address], [place] [address] Jan, [facility] [address] [id number] [address] [place] [address], [place] [address] Dec, [facility] [address] [id number] [address] [place] [address], [place] [address] Dec, [facility] [address] [id number] [address] [place] [address], [place] [address] Dec, [facility] [address] [id number] [facility] [place] [address] Dec, [facility] [address] [id number] [address] [place] [address], [place] [address] Dec, [facility] [address] [id number] [address] [place] [address], [place] [address] Dec, [facility] [address] [id number] [address] [place] [address], [place] [address] Dec, [facility] [address] [id number] [address] [place] [address], [place] [address] Dec, [facility] [address] [id number] [address] [place] [address], [place] [address] October, [facility] [address] [id number] [address] [place] [address], [place] [address] October, [facility] [address] [id number] [address] [place] [address], [place] [address] Sep, [facility] [address] [id number] [address] [place] [address], [place] [address] Sep, [facility] [address] [id number] [address] [place] [address], [place] [address] Sep, [facility] [address] [id number] [address] [place] [address], [place] [address] Sep, [facility] [address] [id number] [address] [place] [address], [place] [address] Sep, [facility] [address] [id number] [address] [place] [address], [place] [address] Sep, [facility] [address] [id number] [address] [place] [address], [place] [address] Sep, [facility] [address] [id number] [address] [place] [address], [place] [address] Sep, [facility] [address] [id number] [address] [place] [address], [place] [address] Sep, [facility] [address] [id number] [address] [place] [address], [place] [address] Sep, [facility] [address] [id number] [address] [place] [address], [place] [address] Sep, [facility] [address] [id number] [address] [place] [address], [place] [address] Sep, [facility] [address] [id number] [address] [place] [address], [place] [address] Aug, [facility] [address] [id number] [address] [place] [address], [place] [address] Aug, [facility] [address] [id number] [address] [place] [address], [place] [address] Aug, [facility] [address] [id number] [address] [place] [address], [place] [address] Jun, [facility] [address] [id number] [address] [place] [address], [place] [address] Jun, [facility] [address] [id number] [address] [place] [address], [place] [address] Jun, [facility] [address] [id number] [address] [place] [address], [place] [address] Jun, [facility] [address] [id number] [address] [place] [address], [place] [address] Jun, [facility] [address] [id number] [address] [place] [address], [place] [address] Jun, [facility] [address] [id number] [address] [place] [address], [place] [address] Jun, [facility] [address] [id number] [address] [place] [address], [place] [address] Jun, [facility] [address] [id number] [address] [place] [address], [place] [address] Jun, [facility] [address] [id number] [address] [place] [address], [place] [address] Jun, [facility] [address] [id number] [address] [place] [address], [place] [address] May, [facility] [address] [id number] [address] [place] [address], [place] [address] May, [facility] [address] [id number] [address] [place] [address], [place] [address] May, [facility] [address] [id number] [address] [place] [address], [place] [address] May, [facility] [address] [id number] [address] [place] [address], [place] [address] Apr, [facility] [address] [id number] [address] [place] [address], [place] [address] Apr, [facility] [address] [id number] [address] [place] [address], [place] [address] Apr, [facility] [address] [id number] [address] [place] [address], [place] [address] Apr, [facility] [address] [id number] [address] [place] [address] Apr, [facility] [address] [id number] [address] [place] [address] Apr, [facility] [address] [id number] [address] [place] [address] Apr, [facility] [address] [id number] [address] [place] [address], [place] [address] Apr, [facility] [address] [id number] [address] [place] [address], [place] [address] Mar, [facility] [address] [id number] [address] [place] [address] Mar, [facility] [address] [id number] [address] [place] [address] Mar, [facility] [address] [id number] [address] [place] [address], [place] [address] Mar, [facility] [address] [id number] [address] [place] [address], [place] [address] Mar, [facility] [address] [id number] [address] [place] [address], [place] [address] Feb, [facility] [address] [id number] [address] [place] [address], [place] [address] Feb, [facility] [address] [id number] [address] [place] [address], [place] [address] Feb, [facility] [address] [id number] [address] [place] [address], [place] [address] Feb, [facility] [address] [id number] [address] [place] [address], [place] [address] Feb, [facility] [address] [id number] [address] [place] [address], [place] [address] Jan, [facility] [address] [id number] [address] [place] [address], [place] [address] Jan, [facility] [address] [id number] [address] [place] [address], [place] [address] Nov, [facility] [address] [id number] [address] [place] [address], [place] [address] Nov, [facility] [address] [id number] [address] [place] [address], [place] [address] Nov, [facility] [address] [id number] [address] [place] [address], [place] [address] Nov, [facility] [address] [id number] [address] [place] [address], [place] [address] October, [facility] [address] [id number] [address] [place] [address], [place] [address] Sep, [facility] [address] [id number] [address] [place] [address], [place] [address] Aug, [facility] [address] [id number] [address] [place] [address], [place] [address] Aug, [facility] [address] [id number] [address] [place] [address], [place] [address] Aug, [facility] [address] [id number] [address] [place] [address], [place] [address] Aug, [facility] [address] [id number] [address] [place] [address], [place] [address] Jul, [facility] [address] [id number] [address] [place] [address], [place] [address] Jun, [facility] [address] [id number] [address] [place] [address], [place] [address] Jun, [facility] [address] [id number] [address] [place] [address], [place] [address] May, [facility] [address] [id number] [address] [place] [address], [place] [address] May, [facility] [address] [id number] [address] [place] [address], [place] [id number] Mar, [facility] [address] [id number] [address] [place] [address], [place] [address] Mar, [facility] [address] [id number] [address] [place] [address], [place] [address] Mar, [facility] [address] [id number] [address] [place] [address], [place] [address] Mar, [facility] [address] [id number] [address] [place] [address], [place] [address] Mar, [facility] [address] [id number] [address] [place] [address], [place] [address] Mar, [facility] [address] [id number] [address] [place] [address], [place] [address] Mar, [facility] [address] [id number] [address] [place] [address], [place] [address] 23 Mar, 2011 [facility] [address] [id number] [address] [place] [address], [place] [address] 22 Mar, 2012 [facility] [address] [id number] [address] [place] [address], [place] [address] 20 Mar, 2012 [facility] [address] [id number] [address] [place] [address], [place] [address] 20 Mar, 2012 [facility] [address] [id number] [address] [place] [address], [place] [address] 17 Mar, 2012 [facility] [address] [id number] [address] [place] [address], [place] [address] 17 Mar, 2012 [facility] [address] [id number] [address] [place] [address], [place] [address] 15 Mar, 2012 [facility] [address] [id number] [address] [place] [address] 15 Mar, 2012 [facility] [address] [id number] [address] [place] [address], [place] [address] 15 Mar, 2012 [facility] [address] [id number] [address] [place] [address] 15 Mar, 2012 [facility] [address] [id number] [address] [place] [address] Mar, [facility] [address] [id number] [address] [place] [address] 11 Mar, 2012 [facility] [address] [id number] [address] [place] [address] 08 Mar, 2012 [facility] [address] [id number] [address] [place] [address] 08 Mar, 2012 [facility] [address] [id number] [address] [place] [address] Mar, [facility] [address] [id number] [address] [place] [address], [place] [address] 01 Mar, 2012 [facility] [address] [id number] [address] [place] [address], [place] [address] 19 Sep, 2011 [facility] [address] [id number] [address] [place] [address], [place] [address] 18 Sep, 2011 [facility] [address] [id number] [address] [place] [address], [place] [address] 17 Sep, 2011 [facility] [address] [id number] [address] [place] [address], [place] [address] 14 Sep, 2011 [facility] [address] [id number] [address] [place] [address], [place] [address] 14 Feb, 2011 [facility] [address] [id number] [address] [place] [address], [place] [address] 12 Feb, 2011 [facility] [address] [id number] [address] [place] [address], [place] [address] 10 Feb, 2011 [facility] [address] [id number] [address] [place] [address], [place] [address] 31 Jan, 2012 [facility] [address] [id number] [address] [place] [address], [place] [address] 30 Jan, 2012 [facility] [address] [id number] [address] [place] [address], [place] [address] 22 Jan, 2012 [facility] [address] [id number] [address] [place] [address], [place] [address] 20 Jan, 2012 [facility] [address] [id number] [address] [place] [address], [place] [address] 17 Jan, 2012 [facility] [address] [id number] [address] [place] [address], [place] [address] 17 Jan, 2012 [facility] [address] [id number] [address] [place] [address], [place] [address] 17 Jan, 2012 [facility] [address] [id number] [address] [place] [address], [place] [address] 16 Jan, 2012 [facility] [address] [id number] [address] [place] [address], [place] [address] Jan, [facility] [address] [id number] [address] [place] [address], [place] [address] Jan, [facility] [address] [id number] [address] [place] [address], [place] [address] 26 Dec, 2011 [facility] [address] [id number] [address] [place] [address], [place] [address] 24 Dec, 2011 [facility] [address] [id number] [address] [place] [address], [place] [address] 23 Dec, 2011 [facility] [address] [id number] [address] [place] [address], [place] [address] Dec, [facility] [address] [id number] [address] [place] [address], [place] [address] 18 Dec, 2011 [facility] [address] [id number] [address] [place] [address], [place] [address] 17 Dec, 2011 [facility] [address] [id number] [address] [place] [address], [place] [address] 16 Dec, 2011 [facility] [address] [id number] [address] [place] [address], [place] [address] 14 Dec, 2011 [facility] [address] [id number] [address] [place] [address], [place] [address] Dec, [facility] [address] [id number] [address] [place] [address], [place] [address] Dec, [facility] [address] [id number] [address] [place] [address], [place] [address] Dec, [facility] [address] [id number] [address] [place] [address], [place] [address] Nov, [facility] [address] [id number] [address] [place] [address], [place] [address] Nov, [facility] [address] [id number] [address] [place] [address], [place] [address] Nov, [facility] [place] [address] [facility] [id number] [address] [place] [id number] Nov, [facility] [place] [address] [facility] [id number] [address] [place] [phone] Nov, [facility] [place] [address] [facility] [id number] [address] [place] [phone] Nov, [facility] [place] [address] [facility] [id number] [address] [place] [phone] Nov, [facility] [place] [address] [facility] [id number] [address] [place] [address] Nov, [facility] [place] [address] [facility] [id number] [address] [place] [address] Nov, [facility] [place] [address] [facility] [id number] [address] [place] [phone] Nov, [facility] [place] [address] [facility] [id number] [address] [place] [address] October, IMMUNIZATIONS No Known Immunizations SOCIAL HISTORY [...]
--- OUTSIDE RECORDS SUMMARY | 2019-11-15 09:39 | XMS REPORT ---
Author Author Maggy Ballesteros Doctor Organization [facility] Address Unknown Phone Unavailable Care Team Providers Care Language And Literature Division Chair Name Role Phone Migration, Doctor Unavailable Unavailable PROBLEMS Type Condition ICD9-CM Code HVM26-IZ Code Onset Dates Condition S tatus SNOMED Code Problem Elevated liver enzymes R74.8 Active 059565830 Problem Abnormal glucose R73.09 Active 102 069261 Problem Major depressive disorder, recurrent episode, moderate F33.1 Active 903885168 Problem Hyperlipidemia LDL goal <100 E78.5 A ctive 25984572 Problem Other chronic pain G89.29 Active 8 3438939 Problem Intractable chronic migraine without aura and wi th status migrainosus G43.711 Active 082697096 Problem Essential hypertension I10 Active 73960609 Problem Hypokalemia E87.6 Active 23375685 Problem Other chronic pain G89.29 Active 8 0978787 Problem 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 Active 52691273 Problem Primary insomnia F51.01 Active 397 2004 Problem Seizure disorder G40.909 Active 128 955496 Problem Moderate persistent asthma with exacerbation J45.4 1 Active 673499455 Problem Moderate persistent asthma without complication J4 5.40 Active 850829252 Problem Reflux gastritis K29.60 Active 729 22733 Problem Irritable bowel syndrome with constipation K58.1 Active 063512375 Problem Lumbago with sciatica, left side M54.42 Active 923906116 Problem Migraine with aura and without status migrainosu s, not intractable G43.109 Active 6606607 Problem Irritable bowel K58.9 Active 1074 3008 Problem History of hypokalemia Z86.39 Active 966119592 Problem Tremor, hereditary, benign G25.0 Act caitlin 774010100 Problem Chronic migraine without aura with statu s migrainosus, not intractable G43.701 Active 504667850 Problem Lumbago with sciatica, right side M54.41 Active 183927035628754 Problem Mood disorder F39 Active 845407 05 Problem RLS (restless legs syndrome) G25.81 A ctive 09790267 Problem Aneurysm I72.9 Active 35501913 ALLERGIES No Information ENCOUNTERS Encounter Location Date Diagnosis [place] [address] [place] [place] [id number] 08 Sep, 2019 Bilious vomiting with nausea R11.14 [facility] [address] [address] 07 Aug, 2019 Influenza A J10.1 [place] [address] [address] Aug, [place] [address] [address] 02 Aug, 2019 Tinea pedis of both feet B35 .3 and Migraine with aura and without status migrainosus, not intractable G43.109 [place] [address] [address] 21 Jul, 2019 [facility] [address] [address] 19 Jul, 2019 Rib pain on left side R07.81 [place] [address] [address] 10 Jul, 2019 Seizure disorder G40.909 and Aneurysm I72.9 [place] [address] [address] 07 Jul, 2019 [place] [address] [address] 06 Jul, 2019 Seizure disorder G40.909 ; A neurysm I72.9 ; Migraine with aura and without status migrainosus, not intractable G43.109 and History of hypokalemia Z86.39 [place] [address] [address] 04 Jul, 2019 [place] [address] [address] Jun, [facility] [address] [id number] [address] [place] [address] Jun, Seizures R56.9 ; Migraine wi th aura and without status migrainosus, not intractable G43.109 ; Other chronic pain G89.29 and Pain in right shoulder M25.511 [facility] [address] [id number] [address] [place] [address] Jun, [facility] [address] [id number] [address] [place] [address] May, Primary insomnia F51.01 ; In tractable chronic migraine without aura and with status migrainosus G43.711 and Aneurysm I72.9 [facility] [address] [id number] [address] [place] [address] Apr, RLS (restless legs syndrome) G25.81 and Mood disorder F39 [facility] [address] [id number] [address] [place] [address] Apr, [facility] [address] [id number] [address] [place] [address] Mar, Other chronic pain G89.29 an d Pain in right shoulder M25.511 [facility] [address] [id number] [address] [place] [address] Mar, Acute left ankle pain M25.57 2 [facility] [address] [id number] [address] [place] [address] Mar, [facility] [address] [id number] [address] [place] [address] Mar, Acute left ankle pain M25.57 2 [facility] [address] [id number] [address] [place] [address] Mar, Major depressive disorder, r ecurrent episode, moderate F33.1 [facility] [address] [id number] [address] [place] [address] Mar, Major depressive disorder, r ecurrent episode, moderate F33.1 ; Lumbago with sciatica, left side M54.42 and Lumbago with sciatica, right side M54.41 [facility] [address] [facility] [id number] [address] [place] [address] Mar, [place] [address] [facility] [id number] [address] [place] [address] Mar, [place] [address] [place] [id number] [place] [address] Mar, Major depressive disorder, r ecurrent episode, moderate F33.1 ; Lumbago with sciatica, left side M54.42 and Lumbago with sciatica, right side M54.41 [place] [address] [place] [id number] [place] [address] Feb, Viral gastroenteritis A08.4 [facility] [place] [id number] [place] [address] Feb, Nausea and vomiting, intract ability of vomiting not specified, unspecified vomiting type R11.2 [place] [address] [place] [id number] [place] [address] Feb, [place] [address] [place] [id number] [place] [address] Feb, [place] [address] [place] [id number] [place] [address] Feb, C. difficile colitis A04.72 ; Mood disorder F39 ; Lumbago with sciatica, left side M54.42 ; Lumbago with sciatica, right side M54.41 and Other chronic pain G89.29 [place] [address] [place] [id number] [place] [address] Jan, [facility] [address] [place] [id number] [place] [address] Jan, Nausea & vomiting R11.2 [place] [address] [place] [id number] [place] [address] Dec, Irritable bowel syndrome wit h constipation K58.1 ; Other chronic pain G89.29 and Pain in right shoulder M25.511 [facility] [address] [place] [id number] [place] [address] Dec, Generalized abdominal pain R 10.84 and Nausea and vomiting, intractability of vomiting not specified, unspecified vomiting type R11.2 [facility] [address] [place] [id number] [place] [address] Dec, [facility] [address] [place] [id number] [address] [place] [address] Dec, Dysuria R30.0 and Irritable bowel K58.9 [facility] [address] [place] [id number] [place] [phone] Sep, Chronic nausea R11.0 [facility] [address] [place] [id number] [place] [address] Sep, [facility] [address] [place] [id number] [address] [place] [address] Sep, Viral gastroenteritis A08.4 [facility] IN [facility] [address] [place] [id number] [place] [address] Aug, Headache R51 ; Viral upper r espiratory tract infection J06.9 and Nausea R11.0 [facility] IN [facility] [id number] [place] [address] Jun, Reflux gastritis K29.60 [facility] [address] [place] [id number] [place] [address] Jun, [facility] [address] [address] May, [facility] [address] [place] [id number] [place] [address] May, [facility] [address] [place] [id number] [place] [address] Apr, Bowel habit changes R19.4 an d Acute cystitis without hematuria N30.00 [facility] [address] [id number] [address] [place] [address] Apr, Pain in right shoulder M25.5 11 [facility] [address] [id number] [address] [place] [address] Apr, [facility] [address] [id number] [address] [place] [address] Mar, [facility] [address] [id number] [address] [place] [address] Mar, [facility] [address] [id number] [address] [place] [address] Mar, [facility] [address] [id number] [address] [place] [address] Mar, [facility] [address] [id number] [address] [place] [address] Feb, [facility] [address] [id number] [address] [place] [address] Feb, [facility] [address] [id number] [address] [place] [address] Feb, [facility] [address] [id number] [address] [place] [address] Jan, [facility] [address] [id number] [address] [place] [address] Dec, [facility] [address] [id number] [address] [place] [address] Dec, Other chronic pain G89.29 ; Pain in right shoulder M25.511 and Liver enzyme elevation R74.8 [facility] [address] [id number] [address] [place] [address] Nov, Other chronic pain G89.29 an d Pain in right shoulder M25.511 [facility] [address] [facility] [id number] [address] [place] [address] October, [facility] [address] [facility] [id number] [address] [place] [address] October, Right shoulder pain, unspeci fied chronicity M25.511 [facility] [address] [facility] [id number] [address] [place] [address] Aug, Elevated liver enzymes R74.8 and Hyperlipidemia LDL goal <100 E78.5 [facility] [address] [facility] [id number] [address] [place] [address] Aug, [facility] [address] [facility] [id number] [address] [place] [address] Jul, [facility] [address] [facility] [id number] [address] [place] [address] Jul, Intractable chronic migraine without aura and with status migrainosus G43.711 ; Fever, unspecified fever cause R50.9 and Elevated liver enzymes R74.8 [facility] [address] [facility] [id number] [address] [place] [address] Jun, Difficulty urinating R39.198 and Moderate persistent asthma with exacerbation J45.41 [facility] [address] [facility] [id number] [address] [place] [address] Jun, [facility] [address] [facility] [id number] [address] [place] [address] Jun, Moderate persistent asthma w ith exacerbation J45.41 [facility] [address] [facility] [id number] [address] [place] [address] May, Elevated liver enzymes R74.8 and Hyperlipidemia LDL goal <100 E78.5 [place] [address] [facility] [id number] [address] [place] [address] May, Elevated lipids E78.5 [facility] [address] [facility] [id number] [address] [place] [address] Apr, Elevated liver enzymes R74.8 [facility] [address] [facility] [id number] [address] [place] [address] Apr, Elevated liver enzymes R74.8 [facility] [address] [facility] [id number] [address] [place] [address] Apr, Superior glenoid labrum lesi on of right shoulder, subsequent encounter S43.431D [facility] [address] [place] [id number] [place] [address] Apr, Hypokalemia E87.6 ; Major de pressive disorder, recurrent episode, moderate F33.1 ; Other abnormalities of breathing R06.89 and Dyspnea, unspecified R06.00 [facility] [address] [place] [id number] [place] [address] Mar, [facility] J[facility].40 [facility] [address] [address] Mar, Impingement syndrome of righ t shoulder M75.41 [facility] [address] [address] Jan, [place] [address] [place] [id number] [place] [address] Jan, Chronic migraine without aur a with status migrainosus, not intractable G43.701 ; Essential hypertension I10 ; Irritable bowel K58.9 ; Primary insomnia F51.01 and Hypokalemia E87.6 [facility] [address] [place] [id number] [place] [address] Dec, [place] [address] [place] [id number] [place] [address] Dec, Pain in right shoulder M25.5 11 [facility] [address] [place] [id number] [place] [address] Dec, Essential hypertension I10 [facility] [address] [place] [id number] [place] [address] Dec, [facility] [address] [id number] [address] [place] [address] 30 Nov, 2016 Essential hypertension I10 [facility] [address] [id number] [address] [place] [address] 14 Nov, 2016 Pain in right shoulder M25.5 11 [facility] [address] [id number] [address] [place] [address] Nov, Pain in right shoulder M25.5 11 [facility] [address] [id number] [address] [place] [address] October, [facility] [address] [id number] [address] [place] [address] October, Pain in right shoulder M25.5 11 [facility] [address] [id number] [address] [place] [address] Sep, Arm pain, right M79.601 [facility] [address] [id number] [address] [place] [address] Sep, [facility] [address] [id number] [address] [place] [address] Sep, Abnormal glucose R73.09 and Elevated lipids E78.5 [facility] [address] [id number] [address] [place] [address] Sep, Abnormal glucose R73.09 and Elevated lipids E78.5 [facility] [address] [id number] [address] [place] [address] Aug, [facility] [address] [id number] [address] [place] [address] Aug, [facility] [address] [id number] [address] [place] [address] Aug, [facility] [address] [id number] [address] [place] [address] Aug, Constipation by delayed colo reny transit K59.01 ; Hypokalemia E87.6 ; Irritable bowel K58.9 ; Essential hypertension I10 ; Pain in right shoulder M25.511 ; Seizure disorder G40.909 and Screening for lipid disorders Z13.220 [place] [address] [facility] [id number] [address] [place] [address] 28 Jul, 2016 Other chronic pain G89.29 an d Pain in right shoulder M25.511 [place] [address] [place] [id number] [place] [address] 14 Jul, 2016 Biceps muscle strain, right, subsequent encounter S46.111D [facility] [place] [address] [place] [id number] [place] [address] 08 Jul, 2016 Arm pain, right M79.601 [place] [address] [place] [id number] [place] [address] Jun, [place] [address] [place] [id number] [place] [address] Jun, Acute non-recurrent frontal sinusitis J01.10 [place] [address] [place] [id number] [place] [address] May, Generalized abdominal pain R 10.84 ; Urinary tract infection without hematuria, site unspecified N39.0 ; Hypokalemia E87.6 ; Essential hypertension I10 ; Screening for lipid disorders Z13.220 ; Seizure R56.9 and Low back pain M54.5 [place] [address] [facility] [id number] [address] [place] [address] Apr, [facility] [address] [facility] [id number] [address] [place] [address] Feb, [place] [address] [place] [id number] [place] [address] Jan, [place] [address] [facility] [id number] [address] [place] [address] Dec, Constipation by delayed colo reny transit K59.01 ; Hypokalemia E87.6 ; Irritable bowel K58.9 and Nausea R11.0 [facility] [address] [facility] [id number] [address] [place] [address] Dec, Generalized abdominal pain R 10.84 [facility] [address] [facility] [id number] [address] [place] [address] Nov, [facility] [address] [place] [id number] [place] [address] Aug, Acute bronchitis J20.9 [place] [address] [facility] [id number] [address] [place] [address] Aug, [place] [address] [place] [id number] [place] [address] 08 Aug, 2015 Low back pain M54.5 ; Hypoka lemia E87.6 ; Chronic migraine without aura with status migrainosus, not intractable G43.701 ; Tremor, hereditary, benign G25.0 ; Irritable bowel K58.9 ; Essential hypertension I10 and Seizure R56.9 [place] [address] [place] [id number] [place] [address] 07 Aug, 2015 [place] [address] [place] [id number] [place] [address] 09 Jul, 2015 [place] [address] [place] [id number] [place] [address] 03 Jul, 2015 Low back pain M54.5 ; Hypoka lemia E87.6 ; Chronic migraine without aura with status migrainosus, not intractable G43.701 ; Tremor, hereditary, benign G25.0 ; Irritable bowel K58.9 ; Essential hypertension I10 and Seizure R56.9 [place] [address] [place] [id number] [place] [address] Jun, Hypokalemia E87.6 [place] [address] [place] [id number] [place] [address] Jun, ADD (attention deficit disor dionicio) without hyperactivity F90.0 ; Generalized anxiety disorder F41.1 and Major depressive disorder, recurrent episode, moderate F33.1 [place] [address] [address] Jun, Low back pain M54.5 ; Hypoka lemia E87.6 ; Chronic migraine without aura with status migrainosus, not intractable G43.701 ; Tremor, hereditary, benign G25.0 ; Irritable bowel K58.9 ; Essential hypertension I10 and Seizure R56.9 [place] [address] [address] Jun, [place] [address] [address] May, [place] [address] [address] May, Low back pain M54.5 ; Hypoka lemia E87.6 ; Chronic migraine without aura with status migrainosus, not intractable G43.701 ; Tremor, hereditary, benign G25.0 ; Irritable bowel K58.9 ; Essential hypertension I10 ; Seizure R56.9 and Tinea capitis B35.0 [place] [address] [address] May, Low back pain M54.5 ; Hypoka lemia E87.6 ; Chronic migraine without aura with status migrainosus, not intractable G43.701 ; Tremor, hereditary, benign G25.0 ; Irritable bowel K58.9 ; Essential hypertension I10 ; Seizure R56.9 ; Otitis media, left H66.92 and Dysuria 788.1 [place] [address] [address] May, Tooth pain K08.8 [place] [address] [address] May, [place] [address] [address] May, Low back pain M54.5 ; Hypoka lemia E87.6 ; Chronic migraine without aura with status migrainosus, not intractable G43.701 ; Tremor, hereditary, benign G25.0 ; Irritable bowel K58.9 and Essential hypertension I10 [facility] [address] [id number] [address] [place] [address] 18 Apr, 2015 Low back pain M54.5 ; Hypoka lemia E87.6 ; Chronic migraine without aura with status migrainosus, not intractable G43.701 ; Tremor, hereditary, benign G25.0 and Irritable bowel K58.9 [facility] [address] [id number] [address] [place] [address] Apr, Low back pain M54.5 [facility] [address] [facility] [id number] [address] [place] [address] Mar, [facility] [address] [facility] [id number] [address] [place] [address] Mar, Irritable bowel syndrome wit h diarrhea K58.0 [facility] [address] [facility] [id number] [address] [place] [address] Mar, [facility] [address] [facility] [id number] [address] [place] [address] Feb, [facility] [address] [facility] [id number] [address] [place] [address] Feb, [facility] [address] [facility] [id number] [address] [place] [address] Feb, Irritable bowel syndrome 564 .1 ; Lumbago 724.2 and Cervical pain (neck) 723.1 [facility] [address] [facility] [id number] [address] [place] [id number] Dec, Major depressive disorder, r ecurrent episode, moderate 296.32 and Generalized anxiety disorder 300.02 [facility] [address] [facility] [id number] [address] [place] [id number] Nov, [place] [address] [id number] [address] [place] [id number] Nov, Major depressive disorder, r ecurrent episode, moderate 296.32 [facility] [address] [id number] [address] [place] [id number] 08 Nov, 2014 Constipation 564.00 ; Nausea & vomiting 787.01 and Abdominal pain 789.00 [facility] [address] [id number] [address] [place] [id number] Nov, [facility] [address] [id number] [address] [place] [id number] October, [facility] [address] [id number] [address] [place] [id number] October, [facility] [address] [facility] [id number] [address] [place] [id number] October, [facility] [address] [id number] [address] [place] [id number] October, [facility] [address] [facility] [id number] [address] [place] [id number] Sep, Dysuria 788.1 [facility] [address] [facility] [id number] [address] [place] [id number] Sep, [facility] [address] [id number] [address] [place] [id number] Sep, [facility] [address] [id number] [address] [place] [address] Sep, [facility] [address] [facility] [id number] [address] [place] [address] Sep, [facility] [address] [id number] [address] [place] [address] Aug, [facility] [address] [facility] [id number] [address] [place] [address] Aug, [facility] [address] [id number] [address] [place] [address] Aug, [facility] [address] [id number] [address] [place] [address], [place] [address] Aug, [facility] [address] [id number] [address] [place] [address], [place] [address] Aug, [facility] [address] [id number] [address] [place] [address], [place] [address] Aug, [facility] [address] [id number] [address] [place] [address], [place] [address] Aug, [facility] [address] [id number] [address] [place] [address], [place] [address] Aug, [facility] [address] [id number] [address] [place] [address], [place] [address] Aug, [facility] [address] [id number] [address] [place] [address], [place] [address] Aug, [facility] [address] [id number] [address] [place] [address], [place] [address] Jun, [facility] [address] [id number] [address] [place] [address], [place] [address] Jun, [facility] [address] [id number] [address] [place] [address], [place] [address] Jun, [facility] [address] [id number] [address] [place] [address], [place] [address] Jun, [facility] [address] [id number] [address] [place] [address], [place] [address] May, [facility] [address] [id number] [address] [place] [address], [place] [address] May, [facility] [address] [id number] [address] [place] [address], [place] [address] May, [facility] [address] [id number] [address] [place] [address], [place] [address] May, [facility] [address] [id number] [address] [place] [address], [place] [address] May, [facility] [address] [id number] [address] [place] [address], [place] [address] May, [facility] [address] [id number] [address] [place] [address], [place] [address] May, [facility] [address] [id number] [address] [place] [address], [place] [address] May, [facility] [address] [id number] [address] [place] [address], [place] [address] Mar, [facility] [address] [id number] [address] [place] [address], [place] [address] Mar, [facility] [address] [id number] [address] [place] [address], [place] [address] Mar, [facility] [address] [id number] [address] [place] [address], [place] [address] Mar, [facility] [address] [id number] [address] [place] [address], [place] [address] Mar, [facility] [address] [id number] [address] [place] [address], [place] [address] Mar, [facility] [address] [id number] [address] [place] [address], [place] [address] Mar, [facility] [address] [id number] [address] [place] [address], [place] [address] Mar, [facility] [address] [id number] [address] [place] [address], [place] [address] Mar, [facility] [address] [id number] [address] [place] [address], [place] [address] Mar, [facility] [address] [id number] [address] [place] [address], [place] [address] Mar, [facility] [address] [id number] [address] [place] [address], [place] [address] Mar, [facility] [address] [id number] [facility] [place] [address] Feb, [facility] [address] [id number] [address] [place] [address], [place] [address] Feb, [facility] [address] [id number] [address] [place] [address], [place] [address] Feb, [facility] [address] [id number] [address] [place] [address], [place] [address] Feb, [facility] [address] [id number] [address] [place] [address], [place] [address] Feb, [facility] [address] [id number] [address] [place] [address], [place] [address] Feb, [facility] [address] [id number] [address] [place] [address], [place] [address] Jan, [facility] [address] [id number] [address] [place] [address], [place] [address] Jan, [facility] [address] [id number] [address] [place] [address], [place] [address] Jan, [facility] [address] [id number] [address] [place] [address], [place] [address] Jan, [facility] [address] [id number] [address] [place] [address], [place] [address] Jan, [facility] [address] [id number] [address] [place] [address], [place] [address] Jan, [facility] [address] [id number] [address] [place] [address], [place] [address] Jan, [facility] [address] [id number] [address] [place] [address], [place] [address] Jan, [facility] [address] [id number] [address] [place] [address], [place] [address] Dec, [facility] [address] [id number] [facility] [place] [address] Dec, [facility] [address] [id number] [facility] [place] [address] Dec, [facility] [address] [id number] [facility] [place] [address] Dec, [facility] [address] [id number] [address] [place] [address], [place] [address] Dec, [facility] [address] [id number] [address] [place] [address], [place] [address] Dec, [facility] [address] [id number] [address] [place] [address], [place] [address] Dec, [facility] [address] [id number] [address] [place] [address], [place] [address] Dec, [facility] [address] [id number] [address] [place] [address], [place] [address] October, [facility] [address] [id number] [address] [place] [address], [place] [address] October, [facility] [address] [id number] [address] [place] [address], [place] [address] Sep, [facility] [address] [id number] [address] [place] [address], [place] [address] Sep, [facility] [address] [id number] [address] [place] [address], [place] [address] Sep, [facility] [address] [id number] [address] [place] [address], [place] [address] Sep, [facility] [address] [id number] [address] [place] [address], [place] [address] Sep, [facility] [address] [id number] [address] [place] [address], [place] [address] Sep, [facility] [address] [id number] [address] [place] [address], [place] [address] Sep, [facility] [address] [id number] [facility] [place] [address] Sep, [facility] [address] [id number] [address] [place] [address], [place] [address] Sep, [facility] [address] [id number] [address] [place] [address], [place] [address] Sep, [facility] [address] [id number] [address] [place] [address], [place] [address] Sep, [facility] [address] [id number] [address] [place] [address], [place] [address] Sep, [facility] [address] [id number] [address] [place] [address], [place] [address] Aug, [facility] [address] [id number] [address] [place] [address], [place] [address] Aug, [facility] [address] [id number] [address] [place] [address], [place] [address] Aug, [facility] [address] [id number] [address] [place] [address], [place] [address] Jun, [facility] [address] [id number] [address] [place] [address], [place] [address] Jun, [facility] [address] [id number] [address] [place] [address], [place] [address] Jun, [facility] [address] [id number] [address] [place] [address], [place] [address] Jun, [facility] [address] [id number] [address] [place] [address], [place] [address] Jun, [facility] [address] [id number] [address] [place] [address], [place] [address] Jun, [facility] [address] [id number] [address] [place] [address], [place] [address] Jun, [facility] [address] [id number] [address] [address] Jun, [facility] [address] [id number] [address] [place] [address], [place] [address] Jun, [facility] [address] [id number] [address] [place] [address], [place] [address] Jun, [facility] [address] [id number] [address] [place] [address], [place] [address] May, [facility] [address] [id number] [address] [place] [address] May, [facility] [address] [id number] [address] [place] [address], [place] [address] May, [facility] [address] [id number] [address] [place] [address], [place] [address] May, [facility] [address] [id number] [address] [place] [address], [place] [address] Apr, [facility] [address] [id number] [address] [place] [address], [place] [address] Apr, [facility] [address] [id number] [address] [place] [address], [place] [address] Apr, [facility] [address] [id number] [address] [place] [address], [place] [address] Apr, [facility] [address] [id number] [address] [place] [address] Apr, [facility] [address] [id number] [address] [place] [address] Apr, [facility] [address] [id number] [address] [place] [address], [place] [address] Apr, [facility] [address] [id number] [address] [place] [address], [place] [address] Apr, [facility] [address] [id number] [address] [place] [address], [place] [address] Mar, [facility] [address] [id number] [address] [place] [address], [place] [address] Mar, [facility] [address] [id number] [address] [place] [address], [place] [address] Mar, [facility] [address] [id number] [address] [place] [address], [place] [address] Mar, [facility] [address] [id number] [address] [place] [address], [place] [address] Mar, [facility] [address] [id number] [address] [place] [address], [place] [address] Feb, [facility] [address] [id number] [address] [place] [address], [place] [address] Feb, [facility] [address] [id number] [address] [place] [address], [place] [address] 05 Feb, 2013 [facility] [address] [id number] [address] [place] [address], [place] [address] Feb, [facility] [address] [id number] [address] [place] [address], [place] [address] Feb, [facility] [address] [id number] [address] [place] [address], [place] [address] Jan, [facility] [address] [id number] [address] [place] [address], [place] [address] Jan, [facility] [address] [id number] [address] [place] [address], [place] [address] Nov, [facility] [address] [id number] [address] [place] [address], [place] [address] Nov, [facility] [address] [id number] [address] [place] [address], [place] [address] Nov, [facility] [address] [id number] [address] [place] [address], [place] [address] Nov, [facility] [address] [id number] [address] [place] [address], [place] [address] October, [facility] [address] [id number] [address] [place] [address], [place] [address] Sep, [facility] [address] [id number] [address] [place] [address], [place] [address] Aug, [facility] [address] [id number] [address] [place] [address], [place] [address] Aug, [facility] [address] [id number] [address] [place] [address], [place] [address] Aug, [facility] [address] [id number] [address] [place] [address], [place] [address] Aug, [facility] [address] [id number] [address] [place] [address], [place] [address] Jul, [facility] [address] [id number] [address] [place] [address], [place] [address] Jun, [facility] [address] [id number] [address] [place] [address] Jun, [facility] [address] [id number] [address] [place] [address] May, [facility] [address] [id number] [address] [place] [address] May, [facility] [address] [id number] [address] [place] [id number] Mar, [facility] [address] [id number] [address] [place] [address] Mar, [facility] [address] [id number] [address] [place] [address] Mar, [facility] [address] [id number] [address] [place] [address], [place] [address] Mar, [facility] [address] [id number] [address] [place] [address] Mar, [facility] [address] [id number] [address] [place] [address] 23 Mar, 2011 [facility] [address] [id number] [address] [place] [address], [place] [address] 23 Mar, 2011 [facility] [address] [id number] [address] [place] [address] 23 Mar, 2011 [facility] [address] [id number] [address] [place] [address], [place] [address] 22 Mar, 2012 [facility] [address] [id number] [address] [place] [address] 20 Mar, 2011 [facility] [address] [id number] [address] [place] [address], [place] [address] 20 Mar, 2012 [facility] [address] [id number] [address] [place] [address] 17 Mar, 2012 [facility] [address] [id number] [address] [place] [address] 17 Mar, 2012 [facility] [address] [id number] [address] [place] [address] 15 Mar, 2012 [facility] [address] [id number] [address] [place] [address] 15 Mar, 2012 [facility] [address] [id number] [address] [place] [address] 15 Mar, 2012 [facility] [address] [id number] [address] [place] [address] 15 Mar, 2012 [facility] [address] [id number] [address] [place] [address] 11 Mar, 2012 [facility] [address] [id number] [address] [place] [address] 11 Mar, 2012 [facility] [address] [id number] [address] [place] [address] 08 Mar, 2012 [facility] [address] [id number] [address] [place] [address] 08 Mar, 2012 [facility] [address] [id number] [facility] [place] [address] 03 Mar, 2012 [facility] [address] [id number] [address] [place] [address], [place] [address] 01 Mar, 2012 [facility] [address] [id number] [address] [place] [address], [place] [address] 19 Feb, 2011 [facility] [address] [id number] [address] [place] [address], [place] [address] 18 Sep, 2011 [facility] [address] [id number] [address] [place] [address], [place] [address] 17 Feb, 2011 [facility] [address] [id number] [address] [place] [address], [place] [address] 14 Feb, 2012 [facility] [address] [id number] [address] [place] [address], [place] [address] 14 Feb, 2012 [facility] [address] [id number] [address] [place] [address], [place] [address] 12 Feb, 2012 [facility] [address] [id number] [address] [place] [address], [place] [address] 10 Feb, 2012 [facility] [address] [id number] [address] [place] [address], [place] [address] 31 Jan, 2012 [facility] [address] [id number] [address] [place] [address], [place] [address] 30 Jan, 2012 [facility] [address] [id number] [address] [place] [address], [place] [address] 22 Jan, 2012 [facility] [address] [id number] [address] [place] [address], [place] [address] Jan, [facility] [address] [id number] [address] [place] [address], [place] [address] Jan, [facility] [address] [id number] [address] [place] [address], [place] [address] Jan, [facility] [address] [id number] [address] [place] [address], [place] [address] 17 Jan, 2012 [facility] [address] [id number] [facility] [place] [address] 16 Jan, 2012 [facility] [address] [id number] [address] [place] [address], [place] [address] 13 Jan, 2012 [facility] [address] [id number] [address] [place] [address], [place] [address] Jan, [facility] [address] [id number] [address] [place] [address], [place] [address] 26 Dec, 2011 [facility] [address] [id number] [address] [place] [address], [place] [address] 24 Dec, 2011 [facility] [address] [id number] [address] [place] [address], [place] [address] 23 Dec, 2011 [facility] [address] [id number] [address] [place] [address], [place] [address] Dec, [facility] [address] [id number] [address] [place] [address], [place] [address] 18 Dec, 2011 [facility] [address] [id number] [address] [place] [address], [place] [address] 17 Dec, 2011 [facility] [address] [id number] [address] [place] [address], [place] [address] 16 Dec, 2011 [facility] [address] [id number] [address] [place] [address], [place] [address] 14 Dec, 2011 [facility] [address] [id number] [address] [place] [address], [place] [address] Dec, [facility] [address] [id number] [address] [place] [address], [place] [address] Dec, [facility] [address] [id number] [address] [place] [address], [place] [address] 06 Dec, 2011 [facility] [address] [id number] [address] [place] [address], [place] [address] Nov, [facility] [address] [id number] [address] [place] [id number] 27 Nov, 2011 [facility] [address] [id number] [address] [place] [id number] 25 Nov, 2011 [facility] [address] [id number] [address] [place] [address] 23 Nov, 2011 [facility] [address] [facility] [id number] [address] [place] [address] Nov, [facility] [address] [facility] [id number] [address] [place] [id number] 20 Nov, 2011 [facility] [address] [facility] [id number] [address] [place] [address] Nov, [facility] [address] [facility] [id number] [address] [place] [id number] Nov, [facility] [address] [facility] [id number] [address] [place] [address] Nov, [facility] [address] [facility] [id number] [address] [place] [id number] 05 Nov, 2011 [facility] [address] [facility] [id number] [address] [place] [address] October, IMMUNIZATIONS No Known Immunizations SOCIAL HISTORY [...]
--- OUTSIDE RECORDS SUMMARY | 2019-11-15 09:40 | XMS REPORT ---
Author Author Maggy Ballesteros Doctor Organization [facility] Address Unknown Phone Unavailable Care Team Providers Care Marble Setter Name Role Phone Migration, Doctor Unavailable Unavailable PROBLEMS Type Condition ICD9-CM Code VMR26-BM Code Onset Dates Condition S tatus SNOMED Code Problem Elevated liver enzymes R74.8 Active 700077843 Problem Abnormal glucose R73.09 Active 102 332054 Problem Major depressive disorder, recurrent episode, moderate F33.1 Active 282219981 Problem Hyperlipidemia LDL goal <100 E78.5 A ctive 74215712 Problem Other chronic pain G89.29 Active 8 8056348 Problem Intractable chronic migraine without aura and wi th status migrainosus G43.711 Active 789551803 Problem Essential hypertension I10 Active 78798892 Problem Hypokalemia E87.6 Active 38074752 Problem Other chronic pain G89.29 Active 8 7985461 Problem 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 Active 24178396 Problem Primary insomnia F51.01 Active 397 2004 Problem Seizure disorder G40.909 Active 128 421304 Problem Moderate persistent asthma with exacerbation J45.4 1 Active 874427277 Problem Moderate persistent asthma without complication J4 5.40 Active 829167614 Problem Reflux gastritis K29.60 Active 729 43168 Problem Irritable bowel syndrome with constipation K58.1 Active 646737852 Problem Lumbago with sciatica, left side M54.42 Active 895558721 Problem Migraine with aura and without status migrainosu s, not intractable G43.109 Active 9877002 Problem Irritable bowel K58.9 Active 1074 3008 Problem History of hypokalemia Z86.39 Active 407106074 Problem Tremor, hereditary, benign G25.0 Act caitlin 445787111 Problem Chronic migraine without aura with statu s migrainosus, not intractable G43.701 Active 844495319 Problem Lumbago with sciatica, right side M54.41 Active 770858113135497 Problem Mood disorder F39 Active 662890 05 Problem RLS (restless legs syndrome) G25.81 A ctive 02863458 Problem Aneurysm I72.9 Active 47055237 ALLERGIES No Information ENCOUNTERS Encounter Location Date Diagnosis [facility] [address] [address] 07 Aug, 2019 Influenza A J10.1 [facility] [address] [address] Aug, [place] [address] [address] 02 Aug, 2019 Tinea pedis of both feet B35 .3 and Migraine with aura and without status migrainosus, not intractable G43.109 [place] [address] [address] 21 Jul, 2019 [facility] [address] [address] 19 Jul, 2019 Rib pain on left side R07.81 [place] [address] [address] 10 Jul, 2019 Seizure disorder G40.909 and Aneurysm I72.9 [place] [address] [address] 07 Jul, 2019 [place] [address] [address] 06 Jul, 2019 Seizure disorder G40.909 ; A neurysm I72.9 ; Migraine with aura and without status migrainosus, not intractable G43.109 and History of hypokalemia Z86.39 [place] [address] [address] 04 Jul, 2019 [place] [address] [address] Jun, [place] [address] [address] Jun, Seizures R56.9 ; Migraine wi th aura and without status migrainosus, not intractable G43.109 ; Other chronic pain G89.29 and Pain in right shoulder M25.511 [facility] [address] [id number] [address] [place] [address] Jun, [facility] [address] [id number] [address] [place] [address] May, Primary insomnia F51.01 ; In tractable chronic migraine without aura and with status migrainosus G43.711 and Aneurysm I72.9 [facility] [address] [id number] [address] [place] [address] Apr, RLS (restless legs syndrome) G25.81 and Mood disorder F39 [facility] [address] [id number] [address] [place] [address] Apr, [facility] [address] [id number] [address] [place] [address] Mar, Other chronic pain G89.29 an d Pain in right shoulder M25.511 [facility] [address] [id number] [address] [place] [address] Mar, Acute left ankle pain M25.57 2 [facility] [address] [id number] [address] [place] [address] Mar, [facility] [address] [id number] [address] [place] [address] Mar, Acute left ankle pain M25.57 2 [facility] [address] [id number] [address] [place] [address] Mar, Major depressive disorder, r ecurrent episode, moderate F33.1 [facility] [address] [id number] [address] [place] [address] Mar, Major depressive disorder, r ecurrent episode, moderate F33.1 ; Lumbago with sciatica, left side M54.42 and Lumbago with sciatica, right side M54.41 [place] [address] [facility] [id number] [address] [place] [address] Mar, [facility] [address] [place] [id number] [address] [place] [address] Mar, [facility] [address] [place] [id number] [address] [place] [address] Mar, Major depressive disorder, r ecurrent episode, moderate F33.1 ; Lumbago with sciatica, left side M54.42 and Lumbago with sciatica, right side M54.41 [facility] [address] [place] [id number] [address] [place] [address] Feb, Viral gastroenteritis A08.4 [facility] [address] [place] [id number] [address] [place] [address] Feb, Nausea and vomiting, intract ability of vomiting not specified, unspecified vomiting type R11.2 [place] [address] [place] [id number] [address] [place] [address] Feb, [facility] [address] [address] Feb, [place] [address] [place] [id number] [address] [place] [address] Feb, C. difficile colitis A04.72 ; Mood disorder F39 ; Lumbago with sciatica, left side M54.42 ; Lumbago with sciatica, right side M54.41 and Other chronic pain G89.29 [facility] [address] [place] [id number] [address] [place] [address] Jan, [facility] [address] [place] [id number] [address] [place] [address] Jan, Nausea & vomiting R11.2 [facility] [address] [place] [id number] [address] [place] [address] Dec, Irritable bowel syndrome wit h constipation K58.1 ; Other chronic pain G89.29 and Pain in right shoulder M25.511 [facility] [address] [facility] [id number] [address] [place] [address] Dec, Generalized abdominal pain R 10.84 and Nausea and vomiting, intractability of vomiting not specified, unspecified vomiting type R11.2 [facility] [address] [place] [id number] [address] [place] [address] Dec, [facility] [address] [address] Dec, Dysuria R30.0 and Irritable bowel K58.9 [facility] [address] [facility] [id number] [address] Sep, Chronic nausea R11.0 [place] [address] [place] [id number] [place] [address] Sep, [place] [address] [address] Sep, Viral gastroenteritis A08.4 [facility] [address] [place] [id number] [address] [place] [address] Aug, Headache R51 ; Viral upper r espiratory tract infection J06.9 and Nausea R11.0 [facility] [address] [place] [id number] [address] [place] [address] Jun, Reflux gastritis K29.60 [place] [address] [address] Jun, [place] [address] [place] [id number] [address] [place] [address] May, [place] [address] [address] May, [place] [address] [address] Apr, Bowel habit changes R19.4 an d Acute cystitis without hematuria N30.00 [place] [address] [place] [address] Apr, Pain in right shoulder M25.5 11 [facility] [address] [id number] [address] [place] [address] Apr, [facility] [address] [id number] [address] [place] [address] Mar, [facility] [address] [id number] [address] [place] [address] Mar, [facility] [address] [id number] [address] [place] [address] Mar, [facility] [address] [id number] [address] [place] [address] Mar, [facility] [address] [id number] [address] [place] [phone] 14 Feb, 2018 [facility] [address] [id number] [address] [place] [address] Feb, [facility] [address] [id number] [address] [place] [phone] 05 Feb, 2018 [facility] [address] [id number] [address] [place] [address] Jan, [facility] [address] [id number] [address] [place] [address] Dec, [facility] [address] [id number] [address] [place] [address] Dec, Other chronic pain G89.29 ; Pain in right shoulder M25.511 and Liver enzyme elevation R74.8 [facility] [address] [id number] [address] [place] [address] Nov, Other chronic pain G89.29 an d Pain in right shoulder M25.511 [facility] [address] [id number] [address] [place] [address] October, [facility] [address] [id number] [address] [place] [address] October, Right shoulder pain, unspeci fied chronicity M25.511 [facility] [address] [place] [id number] [address] [place] [address] Aug, Elevated liver enzymes R74.8 and Hyperlipidemia LDL goal <100 E78.5 [facility] [address] [place] [id number] [address] [place] [address] Aug, [facility] [address] [place] [id number] [place] [address] Jul, [facility] [address] [place] [id number] [place] [address] Jul, Intractable chronic migraine without aura and with status migrainosus G43.711 ; Fever, unspecified fever cause R50.9 and Elevated liver enzymes R74.8 [place] [address] [address] Jun, Difficulty urinating R39.198 and Moderate persistent asthma with exacerbation J45.41 [place] [address] [place] [id number] [address] [place] [address] Jun, [place] [address] [place] [id number] [address] [place] [address] Jun, Moderate persistent asthma w ith exacerbation J45.41 [place] [address] [place] [id number] [address] [place] [address] May, Elevated liver enzymes R74.8 and Hyperlipidemia LDL goal <100 E78.5 [place] [address] [facility] [id number] [address] [place] [address] May, Elevated lipids E78.5 [place] [address] [place] [id number] [address] [place] [address] Apr, Elevated liver enzymes R74.8 [place] [address] [place] [id number] [address] [place] [address] Apr, Elevated liver enzymes R74.8 [place] [id number] N [facility] [id number] [address] [place] [address] Apr, Superior glenoid labrum lesi on of right shoulder, subsequent encounter S43.431D [facility] [address] [facility] [id number] [address] [place] [address] Apr, Hypokalemia E87.6 ; Major de pressive disorder, recurrent episode, moderate F33.1 ; Other abnormalities of breathing R06.89 and Dyspnea, unspecified R06.00 [facility] [address] [facility] [id number] [address] [place] [address] Mar, Moderate persistent asthma w [facility] complication J45.40 [place] [address] [place] [id number] [place] [address] Mar, Impingement syndrome of righ t shoulder M75.41 [place] [address] [address] Jan, [place] [address] [place] [id number] [place] [address] Jan, Chronic migraine without aur a with status migrainosus, not intractable G43.701 ; Essential hypertension I10 ; Irritable bowel K58.9 ; Primary insomnia F51.01 and Hypokalemia E87.6 [place] [address] [place] [id number] [address] [place] [address] Dec, [place] [address] [place] [id number] [address] [place] [address] Dec, Pain in right shoulder M25.5 11 [place] [address] [place] [id number] [address] [place] [address] Dec, Essential hypertension I10 [place] [address] [place] [id number] [place] [address] Dec, [place] [address] [place] [id number] [place] [address] Nov, Essential hypertension I10 [facility] [address] [id number] [address] [place] [address] 14 Nov, 2016 Pain in right shoulder M25.5 11 [facility] [address] [id number] [address] [place] [address] 13 Nov, 2016 Pain in right shoulder M25.5 11 [facility] [address] [id number] [address] [place] [address] October, [facility] [address] [id number] [address] [place] [address] October, Pain in right shoulder M25.5 11 [facility] [address] [id number] [address] [place] [address] Sep, Arm pain, right M79.601 [facility] [address] [id number] [address] [place] [address] Sep, [facility] [address] [id number] [address] [place] [address] Sep, Abnormal glucose R73.09 and Elevated lipids E78.5 [facility] [address] [id number] [address] [place] [address] Sep, Abnormal glucose R73.09 and Elevated lipids E78.5 [facility] [address] [facility] [id number] [address] [place] [address] Aug, [facility] [address] [id number] [address] [place] [address] Aug, [facility] [address] [id number] [address] [place] [address] Aug, [facility] [address] [facility] [id number] [address] [place] [address] Aug, Constipation by delayed colo reny transit K59.01 ; Hypokalemia E87.6 ; Irritable bowel K58.9 ; Essential hypertension I10 ; Pain in right shoulder M25.511 ; Seizure disorder G40.909 and Screening for lipid disorders Z13.220 [place] [address] [place] [id number] [address] [place] [address] 28 Jul, 2016 Other chronic pain G89.29 an d Pain in right shoulder M25.511 [place] [address] [place] [id number] [address] [place] [address] 14 Jul, 2016 Biceps muscle strain, right, subsequent encounter S46.111D [facility] [place] [address] [place] [id number] [place] [address] 08 Jul, 2016 Arm pain, right M79.601 [place] [address] [address] Jun, [place] [address] [address] Jun, Acute non-recurrent frontal sinusitis J01.10 [place] [address] [address] 14 May, 2016 Generalized abdominal pain R 10.84 ; Urinary tract infection without hematuria, site unspecified N39.0 ; Hypokalemia E87.6 ; Essential hypertension I10 ; Screening for lipid disorders Z13.220 ; Seizure R56.9 and Low back pain M54.5 [place] [address] [place] [id number] [place] [address] Apr, [facility] [place] [address] [place] [id number] [address] [place] [address] Feb, [place] [address] [place] [id number] [place] [address] Jan, [place] [address] [address] Dec, Constipation by delayed colo reny transit K59.01 ; Hypokalemia E87.6 ; Irritable bowel K58.9 and Nausea R11.0 [facility] [address] [place] [id number] [address] [place] [address] Dec, Generalized abdominal pain R 10.84 [facility] [address] [address] Nov, [facility] [address] [address] Aug, Acute bronchitis J20.9 [place] [address] [address] Aug, [place] [address] [address] Aug, Low back pain M54.5 ; Hypoka lemia E87.6 ; Chronic migraine without aura with status migrainosus, not intractable G43.701 ; Tremor, hereditary, benign G25.0 ; Irritable bowel K58.9 ; Essential hypertension I10 and Seizure R56.9 [place] [address] [address] Aug, [place] [address] [address] Jul, [place] [address] [address] 03 Jul, 2015 Low back pain M54.5 ; Hypoka lemia E87.6 ; Chronic migraine without aura with status migrainosus, not intractable G43.701 ; Tremor, hereditary, benign G25.0 ; Irritable bowel K58.9 ; Essential hypertension I10 and Seizure R56.9 [place] [address] [place] [id number] [address] [place] [address] Jun, Hypokalemia E87.6 [place] [address] [address] Jun, ADD (attention deficit disor dionicio) without hyperactivity F90.0 ; Generalized anxiety disorder F41.1 and Major depressive disorder, recurrent episode, moderate F33.1 [place] [address] [address] Jun, Low back pain M54.5 ; Hypoka lemia E87.6 ; Chronic migraine without aura with status migrainosus, not intractable G43.701 ; Tremor, hereditary, benign G25.0 ; Irritable bowel K58.9 ; Essential hypertension I10 and Seizure R56.9 [place] [id number] [place] [address] Jun, [place] [address] [address] May, [place] [address] [address] May, Low back pain M54.5 ; Hypoka lemia E87.6 ; Chronic migraine without aura with status migrainosus, not intractable G43.701 ; Tremor, hereditary, benign G25.0 ; Irritable bowel K58.9 ; Essential hypertension I10 ; Seizure R56.9 and Tinea capitis B35.0 [place] [address] [place] [id number] [address] [place] [address] 17 May, 2015 Low back pain M54.5 ; Hypoka lemia E87.6 ; Chronic migraine without aura with status migrainosus, not intractable G43.701 ; Tremor, hereditary, benign G25.0 ; Irritable bowel K58.9 ; Essential hypertension I10 ; Seizure R56.9 ; Otitis media, left H66.92 and Dysuria 788.1 [place] [address] [place] [id number] [address] [place] [address] May, Tooth pain K08.8 [place] [address] [address] May, [place] [address] [address] May, Low back pain M54.5 ; Hypoka lemia E87.6 ; Chronic migraine without aura with status migrainosus, not intractable G43.701 ; Tremor, hereditary, benign G25.0 ; Irritable bowel K58.9 and Essential hypertension I10 [facility] [address] [id number] [address] [place] [address] Apr, Low back pain M54.5 ; Hypoka lemia E87.6 ; Chronic migraine without aura with status migrainosus, not intractable G43.701 ; Tremor, hereditary, benign G25.0 and Irritable bowel K58.9 [facility] [address] [id number] [address] [place] [address] Apr, Low back pain M54.5 [facility] [address] [id number] [address] [place] [address] Mar, [facility] [address] [facility] [id number] [address] [place] [address] Mar, Irritable bowel syndrome wit h diarrhea K58.0 [facility] [address] [facility] [id number] [address] [place] [address] Mar, [facility] [address] [id number] [address] [place] [address] Feb, [facility] [address] [facility] [id number] [address] [place] [address] 08 Feb, 2015 [facility] [address] [facility] [id number] [address] [place] [address] 03 Feb, 2015 Irritable bowel syndrome 564 .1 ; Lumbago 724.2 and Cervical pain (neck) 723.1 [facility] [address] [facility] [id number] [address] [place] [address] Dec, Major depressive disorder, r ecurrent episode, moderate 296.32 and Generalized anxiety disorder 300.02 [facility] [address] [facility] [id number] [address] [place] [address] Nov, [facility] [address] [facility] [id number] [address] [place] [address] Nov, Major depressive disorder, r ecurrent episode, moderate 296.32 [facility] [address] [id number] [address] [place] [address] 08 Nov, 2014 Constipation 564.00 ; Nausea & vomiting 787.01 and Abdominal pain 789.00 [facility] [address] [id number] [address] [place] [address] Nov, [facility] [address] [id number] [address] [place] [address] October, [facility] [address] [id number] [address] [place] [address] October, [facility] [address] [id number] [address] [place] [phone] October, [facility] [address] [id number] [address] [place] [phone] October, [facility] [address] [id number] [address] [place] [phone] Sep, Dysuria 788.1 [facility] [address] [id number] [address] [place] [phone] Sep, [facility] [address] [id number] [address] [place] [phone] Sep, [facility] [address] [facility] [id number] [address] [place] [phone] Sep, [facility] [address] [id number] [address] [place] [phone] Sep, [facility] [address] [id number] [address] [place] [phone] Aug, [facility] [address] [id number] [address] [place] [id number] Aug, [facility] [address] [id number] [address] [place] [phone] Aug, [facility] [address] [id number] [address] [place] [phone] Aug, [facility] [address] [id number] [address] [place] [address], [place] [id number] Aug, [facility] [address] [id number] [address] [place] [address], [place] [id number] Aug, [facility] [address] [id number] [address] [place] [address], [place] [id number] Aug, [facility] [address] [id number] [address] [place] [address], [place] [id number] Aug, [facility] [address] [id number] [address] [place] [address], [place] [id number] Aug, [facility] [address] [id number] [address] [place] [address], [place] [address] Aug, [facility] [address] [id number] [address] [place] [address], [place] [address] Jun, [facility] [address] [id number] [address] [place] [address], [place] [address] Jun, [facility] [address] [id number] [address] [place] [address], [place] [address] Jun, [facility] [address] [id number] [address] [place] [address], [place] [address] Jun, [facility] [address] [id number] [address] [place] [address], [place] [address] May, [facility] [address] [id number] [address] [place] [address], [place] [address] May, [facility] [address] [id number] [address] [place] [address], [place] [address] May, [facility] [address] [id number] [address] [place] [address], [place] [address] May, [facility] [address] [id number] [address] [place] [address], [place] [address] May, [facility] [address] [id number] [address] [place] [address], [place] [address] May, [facility] [address] [id number] [address] [place] [address], [place] [address] May, [facility] [address] [id number] [address] [place] [address], [place] [address] May, [facility] [address] [id number] [address] [place] [address], [place] [address] Mar, [facility] [address] [id number] [address] [place] [address], [place] [address] Mar, [facility] [address] [id number] [address] [place] [address], [place] [address] Mar, [facility] [address] [id number] [address] [place] [address], [place] [address] Mar, [facility] [address] [id number] [address] [place] [address], [place] [address] Mar, [facility] [address] [id number] [address] [place] [address], [place] [address] Mar, [facility] [address] [id number] [address] [place] [address], [place] [address] Mar, [facility] [address] [id number] [address] [place] [address], [place] [address] Mar, [facility] [address] [id number] [address] [place] [address], [place] [address] Mar, [facility] [address] [id number] [address] [place] [address], [place] [address] Mar, [facility] [address] [id number] [address] [place] [address], [place] [address] Mar, [facility] [address] [id number] [address] [place] [address], [place] [address] Mar, [facility] [address] [id number] [address] [place] [address], [place] [address] 24 Feb, 2014 [facility] [address] [id number] [facility] [place] [address] Feb, [facility] [address] [id number] [address] [place] [address] Feb, [facility] [address] [id number] [address] [place] [address] Feb, [facility] [address] [id number] [address] [place] [address], [place] [address] Feb, [facility] [address] [id number] [address] [place] [address], [place] [address] Feb, [facility] [address] [id number] [address] [place] [address], [place] [address] Jan, [facility] [address] [id number] [address] [place] [address], [place] [address] Jan, [facility] [address] [id number] [address] [place] [address], [place] [address] Jan, [facility] [address] [id number] [address] [place] [address], [place] [address] Jan, [facility] [address] [id number] [address] [place] [address], [place] [address] Jan, [facility] [address] [id number] [address] [place] [address], [place] [address] Jan, [facility] [address] [id number] [address] [place] [address], [place] [address] Jan, [facility] [address] [id number] [address] [place] [address], [place] [address] Jan, [facility] [address] [id number] [address] [place] [address], [place] [address] Dec, [facility] [address] [id number] [address] [place] [address], [place] [address] Dec, [facility] [address] [id number] [address] [place] [address], [place] [address] Dec, [facility] [address] [id number] [address] [place] [address] Dec, [facility] [address] [id number] [address] [place] [address], [place] [address] Dec, [facility] [address] [id number] [address] [place] [address], [place] [address] Dec, [facility] [address] [id number] [address] [place] [address], [place] [address] Dec, [facility] [address] [id number] [address] [place] [address], [place] [address] Dec, [facility] [address] [id number] [address] [place] [address], [place] [address] October, [facility] [address] [id number] [address] [place] [address], [place] [address] October, [facility] [address] [id number] [address] [place] [address], [place] [address] Sep, [facility] [address] [id number] [address] [place] [address], [place] [address] Sep, [facility] [address] [id number] [address] [place] [address], [place] [address] Sep, [facility] [address] [id number] [address] [place] [address], [place] [address] Sep, [facility] [address] [id number] [address] [place] [address], [place] [address] Sep, [facility] [address] [id number] [address] [place] [address], [place] [address] Sep, [facility] [address] [id number] [address] [place] [address], [place] [address] Sep, [facility] [address] [id number] [address] [place] [address], [place] [address] Sep, [facility] [address] [id number] [address] [place] [address], [place] [address] Sep, [facility] [address] [id number] [address] [place] [address], [place] [address] Sep, [facility] [address] [id number] [address] [place] [address], [place] [address] Sep, [facility] [address] [id number] [address] [place] [address], [place] [address] Sep, [facility] [address] [id number] [address] [place] [address], [place] [address] Aug, [facility] [address] [id number] [address] [place] [address], [place] [address] Aug, [facility] [address] [id number] [address] [place] [address], [place] [address] Aug, [facility] [address] [id number] [address] [place] [address], [place] [address] Jun, [facility] [address] [id number] [address] [place] [address], [place] [address] Jun, [facility] [address] [id number] [address] [place] [address], [place] [address] Jun, [facility] [address] [id number] [address] [place] [address], [place] [address] Jun, [facility] [address] [id number] [address] [place] [address], [place] [address] Jun, [facility] [address] [id number] [address] [place] [address], [place] [address] Jun, [facility] [address] [id number] [address] [place] [address], [place] [address] Jun, [facility] [address] [id number] [address] [place] [address], [place] [address] Jun, [facility] [address] [id number] [address] [place] [address], [place] [address] Jun, [facility] [address] [id number] [address] [place] [address], [place] [address] Jun, [facility] [address] [id number] [address] [place] [address], [place] [address] May, [facility] [address] [id number] [address] [place] [address], [place] [address] May, [facility] [address] [id number] [address] [place] [address], [place] [address] May, [facility] [address] [id number] [address] [place] [address], [place] [address] May, [facility] [address] [id number] [address] [place] [address], [place] [address] Apr, [facility] [address] [id number] [address] [place] [address], [place] [address] Apr, [facility] [address] [id number] [address] [place] [address], [place] [address] Apr, [facility] [address] [id number] [address] [place] [address], [place] [address] Apr, [facility] [address] [id number] [address] [place] [id number] Apr, [facility] [address] [id number] [address] [place] [address] Apr, [facility] [address] [id number] [address] [place] [address] Apr, [facility] [address] [id number] [address] [place] [address], [place] [address] Apr, [facility] [address] [id number] [address] [place] [address], [place] [address] Mar, [facility] [address] [id number] [address] [place] [address] Mar, [facility] [address] [id number] [address] [place] [id number] Mar, [facility] [address] [id number] [address] [place] [address], [place] [address] Mar, [facility] [address] [id number] [address] [place] [address], [place] [address] Mar, [facility] [address] [id number] [address] [place] [address], [place] [address] Feb, [facility] [address] [id number] [address] [place] [address], [place] [address] Feb, [facility] [address] [id number] [address] [place] [address], [place] [address] Feb, [facility] [address] [id number] [address] [place] [address], [place] [address] Feb, [facility] [address] [id number] [address] [place] [address], [place] [address] Feb, [facility] [address] [id number] [address] [place] [address], [place] [address] Jan, [facility] [address] [id number] [address] [place] [address], [place] [address] Jan, [facility] [address] [id number] [address] [place] [address], [place] [address] Nov, [facility] [address] [id number] [address] [place] [address], [place] [address] Nov, [facility] [address] [id number] [address] [place] [address], [place] [address] Nov, [facility] [address] [id number] [address] [place] [address], [place] [address] Nov, [facility] [address] [id number] [address] [place] [address], [place] [address] October, [facility] [address] [id number] [address] [place] [address], [place] [address] Sep, [facility] [address] [id number] [address] [place] [address], [place] [address] Aug, [facility] [address] [id number] [address] [place] [address], [place] [address] Aug, [facility] [address] [id number] [address] [place] [address], [place] [address] Aug, [facility] [address] [id number] [address] [place] [address], [place] [address] Aug, [facility] [address] [id number] [address] [place] [address], [place] [address] Jul, [facility] [address] [id number] [address] [place] [address], [place] [address] Jun, [facility] [address] [id number] [address] [place] [address], [place] [address] Jun, [facility] [address] [id number] [address] [place] [address], [place] [address] May, [facility] [address] [id number] [address] [place] [address], [place] [address] May, [facility] [address] [id number] [address] [place] [address], [place] [id number] Mar, [facility] [address] [id number] [address] [place] [address], [place] [address] Mar, [facility] [address] [id number] [address] [place] [address], [place] [address] Mar, [facility] [address] [id number] [address] [place] [address], [place] [address] Mar, [facility] [address] [id number] [address] [place] [address], [place] [address] Mar, [facility] [address] [id number] [address] [place] [address], [place] [address] Mar, [facility] [address] [id number] [address] [place] [address], [place] [address] Mar, [facility] [address] [id number] [address] [place] [address], [place] [address] 23 Mar, 2011 [facility] [address] [id number] [address] [place] [address], [place] [address] 22 Mar, 2012 [facility] [address] [id number] [address] [place] [address], [place] [address] 20 Mar, 2012 [facility] [address] [id number] [address] [place] [address], [place] [address] 20 Mar, 2012 [facility] [address] [id number] [address] [place] [address], [place] [address] 17 Mar, 2012 [facility] [address] [id number] [address] [place] [address], [place] [address] 17 Mar, 2012 [facility] [address] [id number] [address] [place] [address], [place] [address] 15 Mar, 2012 [facility] [address] [id number] [address] [place] [address] 15 Mar, 2012 [facility] [address] [id number] [address] [place] [address], [place] [address] 15 Mar, 2012 [facility] [address] [id number] [address] [place] [address] 15 Mar, 2012 [facility] [address] [id number] [address] [place] [address] Mar, [facility] [address] [id number] [address] [place] [address] 11 Mar, 2012 [facility] [address] [id number] [address] [place] [address] 08 Mar, 2012 [facility] [address] [id number] [address] [place] [address] 08 Mar, 2012 [facility] [address] [id number] [address] [place] [id number] Mar, [facility] [address] [id number] [address] [place] [address], [place] [address] 01 Mar, 2012 [facility] [address] [id number] [address] [place] [address], [place] [address] 19 Sep, 2011 [facility] [address] [id number] [address] [place] [address], [place] [address] 18 Sep, 2011 [facility] [address] [id number] [address] [place] [address], [place] [address] 17 Sep, 2011 [facility] [address] [id number] [address] [place] [address], [place] [address] 14 Sep, 2011 [facility] [address] [id number] [address] [place] [address], [place] [address] 14 Feb, 2011 [facility] [address] [id number] [address] [place] [address], [place] [address] 12 Feb, 2011 [facility] [address] [id number] [address] [place] [address], [place] [address] 10 Feb, 2011 [facility] [address] [id number] [address] [place] [address], [place] [address] 31 Jan, 2012 [facility] [address] [id number] [address] [place] [address], [place] [address] 30 Jan, 2012 [facility] [address] [id number] [address] [place] [address], [place] [address] 22 Jan, 2012 [facility] [address] [id number] [address] [place] [address], [place] [address] 20 Jan, 2012 [facility] [address] [id number] [address] [place] [address], [place] [address] 17 Jan, 2012 [facility] [address] [id number] [address] [place] [address], [place] [address] 17 Jan, 2012 [facility] [address] [id number] [address] [place] [address], [place] [address] 17 Jan, 2012 [facility] [address] [id number] [address] [place] [address], [place] [address] 16 Jan, 2012 [facility] [address] [id number] [address] [place] [address], [place] [address] Jan, [facility] [address] [id number] [address] [place] [address], [place] [address] Jan, [facility] [address] [id number] [address] [place] [address], [place] [address] 26 Dec, 2011 [facility] [address] [id number] [address] [place] [address], [place] [address] 24 Dec, 2011 [facility] [address] [id number] [address] [place] [address], [place] [address] 23 Dec, 2011 [facility] [address] [id number] [address] [place] [address], [place] [address] Dec, [facility] [address] [id number] [address] [place] [address], [place] [id number] 18 Dec, 2011 [facility] [address] [id number] [address] [place] [address], [place] [address] 17 Dec, 2011 [facility] [address] [id number] [address] [place] [address], [place] [id number] 16 Dec, 2011 [facility] [address] [id number] [address] [place] [address], [place] [address] 14 Dec, 2011 [facility] [address] [id number] [address] [place] [address], [place] [id number] Dec, [facility] [address] [id number] [address] [place] [address], [place] [id number] Dec, [facility] [address] [id number] [address] [place] [address], [place] [address] Dec, [facility] [address] [id number] [address] [place] [address], [place] [id number] Nov, [facility] [address] [id number] [address] [place] [address], [place] [id number] Nov, [facility] [address] [id number] [address] [place] [address], [place] [id number] Nov, [facility] [address] [facility] [id number] [address] [place] [phone] Nov, [facility] [address] [facility] [id number] [address] [place] [id number] Nov, [facility] [address] [facility] [id number] [address] [place] [phone] Nov, [facility] [address] [facility] [id number] [address] [place] [phone] Nov, [facility] [address] [facility] [id number] [address] [place] [phone] Nov, [facility] [address] [facility] [id number] [address] [place] [phone] Nov, [facility] [address] [facility] [id number] [address] [place] [phone] Nov, [facility] [address] [facility] [id number] [address] [place] [phone] October, IMMUNIZATIONS No Known Immunizations SOCIAL HISTORY [...]
--- OUTSIDE RECORDS SUMMARY | 2019-11-15 09:40 | XMS REPORT ---
Author Author Maggy Ballesteros Doctor Organization [facility] Address Unknown Phone Unavailable Care Team Providers Care Continuous Conveyor Screen Drier Name Role Phone Migration, Doctor Unavailable Unavailable PROBLEMS Type Condition ICD9-CM Code [id number] Code Onset Dates Condition S tatus SNOMED Code Problem Elevated liver enzymes R74.8 Active 413900871 Problem Abnormal glucose R73.09 Active 102 066809 Problem Major depressive disorder, recurrent episode, moderate F33.1 Active 037008171 Problem Hyperlipidemia LDL goal <100 E78.5 A ctive 17936072 Problem Other chronic pain G89.29 Active 8 5769136 Problem Intractable chronic migraine without aura and wi th status migrainosus G43.711 Active 360179246 Problem Essential hypertension I10 Active 54865944 Problem Hypokalemia E87.6 Active 76807200 Problem Other chronic pain G89.29 Active 8 5142953 Problem 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 Active 85313815 Problem Primary insomnia F51.01 Active 397 2004 Problem Seizure disorder G40.909 Active 128 604639 Problem Moderate persistent asthma with exacerbation J45.4 1 Active 465798476 Problem Moderate persistent asthma without complication J4 5.40 Active 537830244 Problem Reflux gastritis K29.60 Active 729 93913 Problem Irritable bowel syndrome with constipation K58.1 Active 648208807 Problem Lumbago with sciatica, left side M54.42 Active 018894361 Problem Migraine with aura and without status migrainosu s, not intractable G43.109 Active 2462450 Problem Irritable bowel K58.9 Active 1074 3008 Problem History of hypokalemia Z86.39 Active 781356472 Problem Tremor, hereditary, benign G25.0 Act caitlin 467804931 Problem Chronic migraine without aura with statu s migrainosus, not intractable G43.701 Active 809457969 Problem Lumbago with sciatica, right side M54.41 Active [id number] Problem Mood disorder F39 Active 774148 05 Problem RLS (restless legs syndrome) G25.81 A ctive 02713965 Problem Aneurysm I72.9 Active 19791368 ALLERGIES No Information ENCOUNTERS Encounter Location Date Diagnosis [facility] [address] [address] 07 Aug, 2019 Influenza A J10.1 [facility] [place] [address] [address] Aug, [place] [address] [address] 02 Aug, 2019 Tinea pedis of both feet B35 .3 and Migraine with aura and without status migrainosus, not intractable G43.109 [place] [address] [address] 21 Jul, 2019 [facility] [address] [address] 19 Jul, 2019 Rib pain on left side R07.81 [place] [address] [address] 10 Jul, 2019 Seizure disorder G40.909 and Aneurysm I72.9 [place] [address] [address] 07 Jul, 2019 [place] [address] [address] 06 Jul, 2019 Seizure disorder G40.909 ; A neurysm I72.9 ; Migraine with aura and without status migrainosus, not intractable G43.109 and History of hypokalemia Z86.39 [place] [address] [address] 04 Jul, 2019 [place] [address] [address] Jun, [place] [address] [address] Jun, Seizures R56.9 ; Migraine wi th aura and without status migrainosus, not intractable G43.109 ; Other chronic pain G89.29 and Pain in right shoulder M25.511 [facility] [place] [address] [id number] [address] [place] [id number] Jun, [facility] [place] [address] [id number] [address] [place] [id number] May, Primary insomnia F51.01 ; In tractable chronic migraine without aura and with status migrainosus G43.711 and Aneurysm I72.9 [facility] [place] [address] [id number] [address] [place] [id number] Apr, RLS (restless legs syndrome) G25.81 and Mood disorder F39 [facility] [place] [address] [id number] [address] [place] [id number] Apr, [facility] [place] [address] [id number] [address] [place] [id number] Mar, Other chronic pain G89.29 an d Pain in right shoulder M25.511 [facility] [place] [address] [id number] [address] [place] [id number] Mar, Acute left ankle pain M25.57 2 [facility] [place] [address] [id number] [address] [place] [id number] Mar, [facility] [place] [address] [id number] [address] [place] [id number] Mar, Acute left ankle pain M25.57 2 [facility] [place] [address] [id number] [address] [place] [id number] Mar, Major depressive disorder, r ecurrent episode, moderate F33.1 [facility] [place] [address] [id number] [address] [place] [id number] Mar, Major depressive disorder, r ecurrent episode, moderate F33.1 ; Lumbago with sciatica, left side M54.42 and Lumbago with sciatica, right side M54.41 [place] [id number] [facility] [id number] [address] [place] [id number] Mar, [facility] [place] [address] [place] [id number] [address] [place] [id number] Mar, [facility] [place] [address] [place] [id number] [address] [place] [id number] Mar, Major depressive disorder, r ecurrent episode, moderate F33.1 ; Lumbago with sciatica, left side M54.42 and Lumbago with sciatica, right side M54.41 [facility] [place] [address] [place] [id number] [address] [place] [id number] Feb, Viral gastroenteritis A08.4 [facility] [address] [place] [id number] [address] [place] [id number] Feb, Nausea and vomiting, intract ability of vomiting not specified, unspecified vomiting type R11.2 [place] [address] [place] [id number] [address] [place] [id number] Feb, [facility] [place] [address] [address] Feb, [place] [address] [place] [id number] [address] [place] [address] Feb, C. difficile colitis A04.72 ; Mood disorder F39 ; Lumbago with sciatica, left side M54.42 ; Lumbago with sciatica, right side M54.41 and Other chronic pain G89.29 [facility] [place] [address] [place] [id number] [address] [place] [id number] Jan, [facility] [address] [place] [id number] [address] [place] [id number] Jan, Nausea & vomiting R11.2 [facility] [place] [address] [place] [id number] [address] [place] [id number] Dec, Irritable bowel syndrome wit h constipation K58.1 ; Other chronic pain G89.29 and Pain in right shoulder M25.511 [facility] [address] [facility] [id number] [address] [place] [id number] Dec, Generalized abdominal pain R 10.84 and Nausea and vomiting, intractability of vomiting not specified, unspecified vomiting type R11.2 [facility] [address] [place] [id number] [address] [place] [id number] Dec, [facility] [place] [address] [address] Dec, Dysuria R30.0 and Irritable bowel K58.9 [facility] [address] [facility] [id number] [place] [address] Sep, Chronic nausea R11.0 [place] [address] [place] [id number] [place] [phone] Sep, [place] [address] [address] Sep, Viral gastroenteritis A08.4 [facility] [address] [place] [id number] [address] [place] [id number] Aug, Headache R51 ; Viral upper r espiratory tract infection J06.9 and Nausea R11.0 [facility] [address] [place] [id number] [address] [place] [id number] Jun, Reflux gastritis K29.60 [place] [address] [address] Jun, [place] [address] [place] [id number] [address] [place] [phone] May, [place] [address] [address] May, [place] [address] [address] Apr, Bowel habit changes R19.4 an d Acute cystitis without hematuria N30.00 [place] [address] [place] [address] Apr, Pain in right shoulder M25.5 11 [facility] [place] [address] [id number] [address] [place] [id number] Apr, [facility] [place] [address] [id number] [address] [place] [id number] Mar, [facility] [place] [address] [id number] [address] [place] [id number] Mar, [facility] [place] [address] [id number] [address] [place] [id number] Mar, [facility] [place] [address] [id number] [address] [place] [id number] Mar, [facility] [place] [address] [id number] [address] [place] [id number] 14 Feb, 2018 [facility] [place] [address] [id number] [address] [place] [id number] Feb, [facility] [place] [address] [id number] [address] [place] [id number] 05 Feb, 2018 [facility] [place] [address] [id number] [address] [place] [id number] Jan, [facility] [place] [address] [id number] [address] [place] [id number] Dec, [facility] [place] [address] [id number] [address] [place] [id number] Dec, Other chronic pain G89.29 ; Pain in right shoulder M25.511 and Liver enzyme elevation R74.8 [facility] [place] [address] [id number] [address] [place] [id number] Nov, Other chronic pain G89.29 an d Pain in right shoulder M25.511 [facility] [place] [address] [id number] [address] [place] [phone] October, [facility] [address] [id number] [address] [place] [id number] October, Right shoulder pain, unspeci fied chronicity M25.511 [facility] [place] [address] [place] [id number] [address] [place] [id number] Aug, Elevated liver enzymes R74.8 and Hyperlipidemia LDL goal <100 E78.5 [facility] [place] [address] [place] [id number] [address] [place] [id number] Aug, [facility] [place] [address] [place] [id number] [place] [phone] Jul, [facility] [place] [address] [place] [id number] [place] [address] Jul, Intractable chronic migraine without aura and with status migrainosus G43.711 ; Fever, unspecified fever cause R50.9 and Elevated liver enzymes R74.8 [place] [address] [address] Jun, Difficulty urinating R39.198 and Moderate persistent asthma with exacerbation J45.41 [place] [address] [place] [id number] [address] [place] [id number] Jun, [place] [address] [place] [id number] [address] [place] [id number] Jun, Moderate persistent asthma w ith exacerbation J45.41 [place] [address] [place] [id number] [address] [place] [id number] May, Elevated liver enzymes R74.8 and Hyperlipidemia LDL goal <100 E78.5 [place] [address] [facility] [id number] [address] [place] [id number] May, Elevated lipids E78.5 [place] [address] [place] [id number] [address] [place] [id number] Apr, Elevated liver enzymes R74.8 [place] [address] [place] [id number] [address] [place] [id number] Apr, Elevated liver enzymes R74.8 [place] [address] [facility] [id number] [address] [place] [id number] Apr, Superior glenoid labrum lesi on of right shoulder, subsequent encounter S43.431D [facility] [place] [address] [facility] [id number] [address] [place] [id number] Apr, Hypokalemia E87.6 ; Major de pressive disorder, recurrent episode, moderate F33.1 ; Other abnormalities of breathing R06.89 and Dyspnea, unspecified R06.00 [facility] [address] [facility] [id number] [address] [place] [id number] Mar, Moderate persistent asthma w [facility] complication J45.40 [place] [address] [place] [id number] [place] [address] Mar, Impingement syndrome of righ t shoulder M75.41 [place] [address] [address] Jan, [place] [address] [place] [id number] [place] [address] Jan, Chronic migraine without aur a with status migrainosus, not intractable G43.701 ; Essential hypertension I10 ; Irritable bowel K58.9 ; Primary insomnia F51.01 and Hypokalemia E87.6 [place] [address] [place] [id number] [address] [place] [id number] Dec, [place] [address] [place] [id number] [address] [place] [id number] Dec, Pain in right shoulder M25.5 11 [place] [address] [place] [id number] [address] [place] [id number] Dec, Essential hypertension I10 [place] [address] [place] [id number] [address] [place] [id number] Dec, [place] [address] [place] [id number] [address] [place] [id number] Nov, Essential hypertension I10 [facility] [place] [address] [id number] [address] [place] [id number] 14 Nov, 2016 Pain in right shoulder M25.5 11 [facility] [place] [address] [id number] [address] [place] [id number] 13 Nov, 2016 Pain in right shoulder M25.5 11 [facility] [place] [address] [id number] [address] [place] [id number] October, [facility] [place] [address] [id number] [address] [place] [phone] October, Pain in right shoulder M25.5 11 [facility] [place] [address] [id number] [address] [place] [phone] Sep, Arm pain, right M79.601 [facility] [place] [address] [id number] [address] [place] [id number] Sep, [facility] [place] [address] [id number] [address] [place] [id number] Sep, Abnormal glucose R73.09 and Elevated lipids E78.5 [facility] [place] [address] [id number] [address] [place] [id number] Sep, Abnormal glucose R73.09 and Elevated lipids E78.5 [facility] [place] [address] [facility] [id number] [address] [place] [id number] Aug, [facility] [place] [address] [id number] [address] [place] [id number] Aug, [facility] [place] [address] [id number] [address] [place] [id number] Aug, [facility] [place] [address] [facility] [id number] [address] [place] [id number] Aug, Constipation by delayed colo reny transit K59.01 ; Hypokalemia E87.6 ; Irritable bowel K58.9 ; Essential hypertension I10 ; Pain in right shoulder M25.511 ; Seizure disorder G40.909 and Screening for lipid disorders Z13.220 [place] [address] [place] [id number] [address] [place] [id number] 28 Jul, 2016 Other chronic pain G89.29 an d Pain in right shoulder M25.511 [place] [address] [place] [id number] [address] [place] [id number] 14 Jul, 2016 Biceps muscle strain, right, subsequent encounter S46.111D [facility] [place] [address] [place] [id number] [place] [address] 08 Jul, 2016 Arm pain, right M79.601 [place] [address] [address] Jun, [place] [address] [address] Jun, Acute non-recurrent frontal sinusitis J01.10 [place] [address] [address] 14 May, 2016 Generalized abdominal pain R 10.84 ; Urinary tract infection without hematuria, site unspecified N39.0 ; Hypokalemia E87.6 ; Essential hypertension I10 ; Screening for lipid disorders Z13.220 ; Seizure R56.9 and Low back pain M54.5 [place] [address] [place] [id number] [address] [place] [phone] Apr, [facility] [place] [address] [place] [id number] [address] [place] [id number] Feb, [place] [address] [place] [id number] [address] [place] [phone] Jan, [place] [address] [address] Dec, Constipation by delayed colo reny transit K59.01 ; Hypokalemia E87.6 ; Irritable bowel K58.9 and Nausea R11.0 [facility] [address] [place] [id number] [address] [place] [id number] Dec, Generalized abdominal pain R 10.84 [facility] [place] [address] [address] Nov, [facility] [address] [address] Aug, Acute bronchitis J20.9 [place] [address] [address] Aug, [place] [address] [address] Aug, Low back pain M54.5 ; Hypoka lemia E87.6 ; Chronic migraine without aura with status migrainosus, not intractable G43.701 ; Tremor, hereditary, benign G25.0 ; Irritable bowel K58.9 ; Essential hypertension I10 and Seizure R56.9 [place] [address] [address] Aug, [place] [address] [address] Jul, [place] [address] [address] 03 Jul, 2015 Low back pain M54.5 ; Hypoka lemia E87.6 ; Chronic migraine without aura with status migrainosus, not intractable G43.701 ; Tremor, hereditary, benign G25.0 ; Irritable bowel K58.9 ; Essential hypertension I10 and Seizure R56.9 [place] [address] [place] [id number] [address] [place] [id number] Jun, Hypokalemia E87.6 [place] [address] [address] Jun, ADD (attention deficit disor dionicio) without hyperactivity F90.0 ; Generalized anxiety disorder F41.1 and Major depressive disorder, recurrent episode, moderate F33.1 [place] [address] [address] Jun, Low back pain M54.5 ; Hypoka lemia E87.6 ; Chronic migraine without aura with status migrainosus, not intractable G43.701 ; Tremor, hereditary, benign G25.0 ; Irritable bowel K58.9 ; Essential hypertension I10 and Seizure R56.9 [place] [address] [place] [address] Jun, [place] [address] [address] May, [place] [address] [address] May, Low back pain M54.5 ; Hypoka lemia E87.6 ; Chronic migraine without aura with status migrainosus, not intractable G43.701 ; Tremor, hereditary, benign G25.0 ; Irritable bowel K58.9 ; Essential hypertension I10 ; Seizure R56.9 and Tinea capitis B35.0 [place] [address] [place] [id number] [address] [place] [id number] 17 May, 2015 Low back pain M54.5 ; Hypoka lemia E87.6 ; Chronic migraine without aura with status migrainosus, not intractable G43.701 ; Tremor, hereditary, benign G25.0 ; Irritable bowel K58.9 ; Essential hypertension I10 ; Seizure R56.9 ; Otitis media, left H66.92 and Dysuria 788.1 [place] [address] [place] [id number] [address] [place] [id number] May, Tooth pain K08.8 [place] [address] [address] May, [place] [address] [address] May, Low back pain M54.5 ; Hypoka lemia E87.6 ; Chronic migraine without aura with status migrainosus, not intractable G43.701 ; Tremor, hereditary, benign G25.0 ; Irritable bowel K58.9 and Essential hypertension I10 [facility] [place] [address] [id number] [address] [place] [id number] Apr, Low back pain M54.5 ; Hypoka lemia E87.6 ; Chronic migraine without aura with status migrainosus, not intractable G43.701 ; Tremor, hereditary, benign G25.0 and Irritable bowel K58.9 [facility] [place] [address] [id number] [address] [place] [id number] Apr, Low back pain M54.5 [facility] [address] [id number] [address] [place] [id number] Mar, [facility] [place] [address] [facility] [id number] [address] [place] [id number] Mar, Irritable bowel syndrome wit h diarrhea K58.0 [facility] [place] [address] [facility] [id number] [address] [place] [id number] Mar, [facility] [address] [id number] [address] [place] [id number] Feb, [facility] [address] [facility] [id number] [address] [place] [id number] 08 Feb, 2015 [facility] [place] [address] [facility] [id number] [address] [place] [id number] 03 Feb, 2015 Irritable bowel syndrome 564 .1 ; Lumbago 724.2 and Cervical pain (neck) 723.1 [facility] [place] [address] [facility] [id number] [address] [place] [phone] Dec, Major depressive disorder, r ecurrent episode, moderate 296.32 and Generalized anxiety disorder 300.02 [facility] [place] [address] [facility] [id number] [address] [place] [phone] Nov, [facility] [place] [address] [facility] [id number] [address] [place] [phone] Nov, Major depressive disorder, r ecurrent episode, moderate 296.32 [facility] [address] [id number] [address] [place] [id number] 08 Nov, 2014 Constipation 564.00 ; Nausea & vomiting 787.01 and Abdominal pain 789.00 [facility] [address] [id number] [address] [place] [phone] Nov, [facility] [address] [id number] [address] [place] [phone] October, [facility] [address] [id number] [address] [place] [phone] October, [facility] [address] [id number] [address] [place] [phone] October, [facility] [address] [id number] [address] [place] [phone] October, [facility] [address] [id number] [address] [place] [address] Sep, Dysuria 788.1 [facility] [address] [id number] [address] [place] [address] Sep, [facility] [address] [id number] [address] [place] [address] Sep, [facility] [address] [facility] [id number] [address] [place] [address] Sep, [facility] [address] [id number] [address] [place] [address] Sep, [facility] [address] [id number] [address] [place] [address] Aug, [facility] [address] [id number] [address] [place] [id number] Aug, [facility] [address] [id number] [address] [place] [id number] Aug, [facility] [address] [id number] [address] [place] [id number] Aug, [facility] [address] [id number] [address] [place] [address], [place] [address] Aug, [facility] [address] [id number] [address] [place] [address], [place] [address] Aug, [facility] [address] [id number] [address] [place] [address], [place] [address] Aug, [facility] [address] [id number] [address] [place] [address], [place] [address] Aug, [facility] [address] [id number] [address] [place] [address], [place] [address] Aug, [facility] [address] [id number] [address] [place] [address], [place] [address] Aug, [facility] [address] [id number] [address] [place] [address], [place] [address] Jun, [facility] [address] [id number] [address] [place] [address], [place] [address] Jun, [facility] [address] [id number] [address] [place] [address], [place] [address] Jun, [facility] [address] [id number] [address] [place] [address], [place] [address] Jun, [facility] [address] [id number] [address] [place] [address], [place] [address] May, [facility] [address] [id number] [address] [place] [address], [place] [address] May, [facility] [address] [id number] [address] [place] [address], [place] [address] May, [facility] [address] [id number] [address] [place] [address], [place] [address] May, [facility] [address] [id number] [address] [place] [address], [place] [address] May, [facility] [address] [id number] [address] [place] [address], [place] [address] May, [facility] [address] [id number] [address] [place] [address], [place] [address] May, [facility] [address] [id number] [address] [place] [address], [place] [address] May, [facility] [address] [id number] [address] [place] [address], [place] [address] Mar, [facility] [address] [id number] [address] [place] [address], [place] [address] Mar, [facility] [address] [id number] [address] [place] [address], [place] [address] Mar, [facility] [address] [id number] [address] [place] [address], [place] [address] Mar, [facility] [address] [id number] [address] [place] [address], [place] [address] Mar, [facility] [address] [id number] [address] [place] [address], [place] [address] Mar, [facility] [address] [id number] [address] [place] [address], [place] [address] Mar, [facility] [address] [id number] [address] [place] [address], [place] [address] Mar, [facility] [address] [id number] [address] [place] [address], [place] [address] Mar, [facility] [address] [id number] [address] [place] [address], [place] [address] Mar, [facility] [address] [id number] [address] [place] [address], [place] [address] Mar, [facility] [address] [id number] [address] [place] [address], [place] [address] Mar, [facility] [address] [id number] [address] [place] [address], [place] [address] 24 Feb, 2014 [facility] [address] [id number] [facility] [place] [address] Feb, [facility] [address] [id number] [facility] [place] [address] Feb, [facility] [address] [id number] [facility] [place] [address] Feb, [facility] [address] [id number] [address] [place] [address], [place] [address] Feb, [facility] [address] [id number] [address] [place] [address], [place] [address] Feb, [facility] [address] [id number] [address] [place] [address], [place] [address] Jan, [facility] [address] [id number] [address] [place] [address], [place] [address] Jan, [facility] [address] [id number] [address] [place] [address], [place] [address] Jan, [facility] [address] [id number] [address] [place] [address], [place] [address] Jan, [facility] [address] [id number] [address] [place] [address], [place] [address] Jan, [facility] [address] [id number] [address] [place] [address], [place] [address] Jan, [facility] [address] [id number] [address] [place] [address], [place] [address] Jan, [facility] [address] [id number] [address] [place] [address], [place] [address] Jan, [facility] [address] [id number] [address] [place] [address], [place] [address] Dec, [facility] [address] [id number] [address] [place] [address], [place] [address] Dec, [facility] [address] [id number] [address] [place] [address], [place] [address] Dec, [facility] [address] [id number] [facility] [place] [address] Dec, [facility] [address] [id number] [address] [place] [address], [place] [address] Dec, [facility] [address] [id number] [address] [place] [address], [place] [address] Dec, [facility] [address] [id number] [address] [place] [address], [place] [address] Dec, [facility] [address] [id number] [address] [place] [address], [place] [address] Dec, [facility] [address] [id number] [address] [place] [address], [place] [address] October, [facility] [address] [id number] [address] [place] [address], [place] [address] October, [facility] [address] [id number] [address] [place] [address], [place] [address] Sep, [facility] [address] [id number] [address] [place] [address], [place] [address] Sep, [facility] [address] [id number] [address] [place] [address], [place] [address] Sep, [facility] [address] [id number] [address] [place] [address], [place] [address] Sep, [facility] [address] [id number] [address] [place] [address], [place] [address] Sep, [facility] [address] [id number] [address] [place] [address], [place] [address] Sep, [facility] [address] [id number] [address] [place] [address], [place] [address] Sep, [facility] [address] [id number] [address] [place] [address], [place] [address] Sep, [facility] [address] [id number] [address] [place] [address], [place] [address] Sep, [facility] [address] [id number] [address] [place] [address], [place] [address] Sep, [facility] [address] [id number] [address] [place] [address], [place] [address] Sep, [facility] [address] [id number] [address] [place] [address], [place] [address] Sep, [facility] [address] [id number] [address] [place] [address], [place] [address] Aug, [facility] [address] [id number] [address] [place] [address], [place] [address] Aug, [facility] [address] [id number] [address] [place] [address], [place] [address] Aug, [facility] [address] [id number] [address] [place] [address], [place] [address] Jun, [facility] [address] [id number] [address] [place] [address], [place] [address] Jun, [facility] [address] [id number] [address] [place] [address], [place] [address] Jun, [facility] [address] [id number] [address] [place] [address], [place] [address] Jun, [facility] [address] [id number] [address] [place] [address], [place] [address] Jun, [facility] [address] [id number] [address] [place] [address], [place] [address] Jun, [facility] [address] [id number] [address] [place] [address], [place] [address] Jun, [facility] [address] [id number] [address] [place] [address], [place] [address] Jun, [facility] [address] [id number] [address] [place] [address], [place] [address] Jun, [facility] [address] [id number] [address] [place] [address], [place] [address] Jun, [facility] [address] [id number] [address] [place] [address], [place] [address] May, [facility] [address] [id number] [address] [place] [address], [place] [address] May, [facility] [address] [id number] [address] [place] [address], [place] [address] May, [facility] [address] [id number] [address] [place] [address], [place] [address] May, [facility] [address] [id number] [address] [place] [address], [place] [address] Apr, [facility] [address] [id number] [address] [place] [address], [place] [address] Apr, [facility] [address] [id number] [address] [place] [address], [place] [address] Apr, [facility] [address] [id number] [address] [place] [address], [place] [address] Apr, [facility] [address] [id number] [address] [place] [address] Apr, [facility] [address] [id number] [address] [place] [address] Apr, [facility] [address] [id number] [address] [place] [address] Apr, [facility] [address] [id number] [address] [place] [address], [place] [address] Apr, [facility] [address] [id number] [address] [place] [address], [place] [address] Mar, [facility] [address] [id number] [address] [place] [address] Mar, [facility] [address] [id number] [address] [place] [address] Mar, [facility] [address] [id number] [address] [place] [address], [place] [address] Mar, [facility] [address] [id number] [address] [place] [address], [place] [address] Mar, [facility] [address] [id number] [address] [place] [address], [place] [address] Feb, [facility] [address] [id number] [address] [place] [address], [place] [address] Feb, [facility] [address] [id number] [address] [place] [address], [place] [address] Feb, [facility] [address] [id number] [address] [place] [address], [place] [address] Feb, [facility] [address] [id number] [address] [place] [address], [place] [address] Feb, [facility] [address] [id number] [address] [place] [address], [place] [address] Jan, [facility] [address] [id number] [address] [place] [address], [place] [address] Jan, [facility] [address] [id number] [address] [place] [address], [place] [address] Nov, [facility] [address] [id number] [address] [place] [address], [place] [address] Nov, [facility] [address] [id number] [address] [place] [address], [place] [address] Nov, [facility] [address] [id number] [address] [place] [address], [place] [address] Nov, [facility] [address] [id number] [address] [place] [address], [place] [address] October, [facility] [address] [id number] [address] [place] [address], [place] [address] Sep, [facility] [address] [id number] [address] [place] [address], [place] [address] Aug, [facility] [address] [id number] [address] [place] [address], [place] [address] Aug, [facility] [address] [id number] [address] [place] [address], [place] [address] Aug, [facility] [address] [id number] [address] [place] [address], [place] [address] Aug, [facility] [address] [id number] [address] [place] [address], [place] [address] Jul, [facility] [address] [id number] [address] [place] [address], [place] [address] Jun, [facility] [address] [id number] [address] [place] [address], [place] [address] Jun, [facility] [address] [id number] [address] [place] [address], [place] [address] May, [facility] [address] [id number] [address] [place] [address], [place] [address] May, [facility] [address] [id number] [address] [place] [address], [place] [id number] Mar, [facility] [address] [id number] [address] [place] [address], [place] [address] Mar, [facility] [address] [id number] [address] [place] [address], [place] [address] Mar, [facility] [address] [id number] [address] [place] [address], [place] [address] Mar, [facility] [address] [id number] [address] [place] [address], [place] [address] Mar, [facility] [address] [id number] [address] [place] [address], [place] [address] Mar, [facility] [address] [id number] [address] [place] [address], [place] [address] Mar, [facility] [address] [id number] [address] [place] [address], [place] [address] 23 Mar, 2011 [facility] [address] [id number] [address] [place] [address], [place] [address] 22 Mar, 2012 [facility] [address] [id number] [address] [place] [address], [place] [address] 20 Mar, 2012 [facility] [address] [id number] [address] [place] [address], [place] [address] 20 Mar, 2012 [facility] [address] [id number] [address] [place] [address], [place] [address] 17 Mar, 2012 [facility] [address] [id number] [address] [place] [address], [place] [address] 17 Mar, 2012 [facility] [address] [id number] [address] [place] [address], [place] [address] 15 Mar, 2012 [facility] [address] [id number] [address] [place] [id number] 15 Mar, 2012 [facility] [address] [id number] [address] [place] [address], [place] [address] 15 Mar, 2012 [facility] [address] [id number] [address] [place] [address] 15 Mar, 2012 [facility] [address] [id number] [address] [place] [address] Mar, [facility] [address] [id number] [address] [place] [address] 11 Mar, 2012 [facility] [address] [id number] [address] [place] [address] 08 Mar, 2012 [facility] [address] [id number] [address] [place] [address] 08 Mar, 2012 [facility] [address] [id number] [address] [place] [address] Mar, [facility] [address] [id number] [address] [place] [address], [place] [address] 01 Mar, 2012 [facility] [address] [id number] [address] [place] [address], [place] [address] 19 Sep, 2011 [facility] [address] [id number] [address] [place] [address], [place] [address] 18 Sep, 2011 [facility] [address] [id number] [address] [place] [address], [place] [address] 17 Sep, 2011 [facility] [address] [id number] [address] [place] [address], [place] [address] 14 Sep, 2011 [facility] [address] [id number] [address] [place] [address], [place] [address] 14 Feb, 2011 [facility] [address] [id number] [address] [place] [address], [place] [address] 12 Feb, 2011 [facility] [address] [id number] [address] [place] [address], [place] [address] 10 Feb, 2011 [facility] [address] [id number] [address] [place] [address], [place] [address] 31 Jan, 2012 [facility] [address] [id number] [address] [place] [address], [place] [address] 30 Jan, 2012 [facility] [address] [id number] [address] [place] [address], [place] [address] 22 Jan, 2012 [facility] [address] [id number] [address] [place] [address], [place] [address] 20 Jan, 2012 [facility] [address] [id number] [address] [place] [address], [place] [address] 17 Jan, 2012 [facility] [address] [id number] [address] [place] [address], [place] [address] 17 Jan, 2012 [facility] [address] [id number] [address] [place] [address], [place] [address] 17 Jan, 2012 [facility] [address] [id number] [address] [place] [address], [place] [address] 16 Jan, 2012 [facility] [address] [id number] [address] [place] [address], [place] [address] Jan, [facility] [address] [id number] [address] [place] [address], [place] [address] Jan, [facility] [address] [id number] [address] [place] [address], [place] [address] 26 Dec, 2011 [facility] [address] [id number] [address] [place] [address], [place] [address] 24 Dec, 2011 [facility] [address] [id number] [address] [place] [address], [place] [address] 23 Dec, 2011 [facility] [address] [id number] [address] [place] [address], [place] [address] Dec, [facility] [address] [id number] [address] [place] [address], [place] [address] 18 Dec, 2011 [facility] [address] [id number] [address] [place] [address], [place] [address] 17 Dec, 2011 [facility] [address] [id number] [address] [place] [address], [place] [address] 16 Dec, 2011 [facility] [address] [id number] [address] [place] [address], [place] [address] 14 Dec, 2011 [facility] [address] [id number] [address] [place] [address], [place] [address] Dec, [facility] [address] [id number] [address] [place] [address], [place] [address] Dec, [facility] [address] [id number] [address] [place] [address], [place] [address] Dec, [facility] [address] [id number] [address] [place] [address], [place] [address] Nov, [facility] [address] [id number] [address] [place] [address], [place] [address] Nov, [facility] [address] [id number] [address] [place] [address], [place] [address] Nov, [facility] [place] [address] [facility] [id number] [address] [place] [id number] Nov, [facility] [place] [address] [facility] [id number] [address] [place] [id number] Nov, [facility] [place] [address] [facility] [id number] [address] [place] [phone] Nov, [facility] [place] [address] [facility] [id number] [address] [place] [phone] Nov, [facility] [place] [address] [facility] [id number] [address] [place] [id number] Nov, [facility] [place] [address] [facility] [id number] [address] [place] [id number] Nov, [facility] [place] [address] [facility] [id number] [address] [place] [phone] Nov, [facility] [place] [address] [facility] [id number] [address] [place] [phone] October, IMMUNIZATIONS No Known Immunizations SOCIAL HISTORY Never Assessed REASON FOR VISIT PLAN OF CARE VITAL SIGNS MEDICATIONS No Known Medications RESULTS No Results PROCEDURES Procedure Date Ordered Result Body Site DRUG SCREEN, QUALITATE/MULTI Jun 16, 2013 INSTRUCTIONS MEDICATIONS ADMINISTERED No Known Medications MEDICAL [...]
--- OUTSIDE RECORDS SUMMARY | 2019-11-15 09:40 | XMS REPORT ---
Author Author Maggy Ballesteros Doctor Organization [facility] Address Unknown Phone Unavailable Care Team Providers Care Wreath And Garland Maker Name Role Phone Migration, Doctor Unavailable Unavailable PROBLEMS Type Condition ICD9-CM Code [id number] Code Onset Dates Condition S tatus SNOMED Code Problem Elevated liver enzymes R74.8 Active 148568024 Problem Abnormal glucose R73.09 Active 102 256004 Problem Major depressive disorder, recurrent episode, moderate F33.1 Active 691091048 Problem Hyperlipidemia LDL goal <100 E78.5 A ctive 27389818 Problem Other chronic pain G89.29 Active 8 0580121 Problem Intractable chronic migraine without aura and wi th status migrainosus G43.711 Active 638238343 Problem Essential hypertension I10 Active 42741826 Problem Hypokalemia E87.6 Active 00998020 Problem Other chronic pain G89.29 Active 8 1334281 Problem 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 Active 74320859 Problem Primary insomnia F51.01 Active 397 2004 Problem Seizure disorder G40.909 Active 128 601827 Problem Moderate persistent asthma with exacerbation J45.4 1 Active 766152453 Problem Moderate persistent asthma without complication J4 5.40 Active 024242060 Problem Reflux gastritis K29.60 Active 729 87002 Problem Irritable bowel syndrome with constipation K58.1 Active 654124984 Problem Lumbago with sciatica, left side M54.42 Active 079625361 Problem Migraine with aura and without status migrainosu s, not intractable G43.109 Active 9503459 Problem Irritable bowel K58.9 Active 1074 3008 Problem History of hypokalemia Z86.39 Active 907398766 Problem Tremor, hereditary, benign G25.0 Act caitlin 125869602 Problem Chronic migraine without aura with statu s migrainosus, not intractable G43.701 Active 886658985 Problem Lumbago with sciatica, right side M54.41 Active 011592620848500 Problem Mood disorder F39 Active 865678 05 Problem RLS (restless legs syndrome) G25.81 A ctive 54566015 Problem Aneurysm I72.9 Active 85814808 ALLERGIES No Information ENCOUNTERS Encounter Location Date Diagnosis [facility] [address] [address] 07 Aug, 2019 Influenza A J10.1 [facility] [address] [address] Aug, [place] [address] [address] 02 Aug, 2019 Tinea pedis of both feet B35 .3 and Migraine with aura and without status migrainosus, not intractable G43.109 [place] [address] [address] 21 Jul, 2019 [facility] IN [facility] [address] [address] 19 Jul, 2019 Rib pain on left side R07.81 [place] [address] [address] 10 Jul, 2019 Seizure disorder G40.909 and Aneurysm I72.9 [place] [address] [address] 07 Jul, 2019 [place] [address] [address] 06 Jul, 2019 Seizure disorder G40.909 ; A neurysm I72.9 ; Migraine with aura and without status migrainosus, not intractable G43.109 and History of hypokalemia Z86.39 [place] [address] [address] 04 Jul, 2019 [place] [address] [address] Jun, [place] [address] [address] Jun, Seizures R56.9 ; Migraine wi th aura and without status migrainosus, not intractable G43.109 ; Other chronic pain G89.29 and Pain in right shoulder M25.511 [facility] [address] [id number] [address] [place] [address] Jun, [facility] [address] [id number] [address] [place] [address] May, Primary insomnia F51.01 ; In tractable chronic migraine without aura and with status migrainosus G43.711 and Aneurysm I72.9 [facility] [address] [id number] [address] [place] [address] Apr, RLS (restless legs syndrome) G25.81 and Mood disorder F39 [facility] [address] [id number] [address] [place] [address] Apr, [facility] [address] [id number] [address] [place] [address] Mar, Other chronic pain G89.29 an d Pain in right shoulder M25.511 [facility] [address] [id number] [address] [place] [address] Mar, Acute left ankle pain M25.57 2 [facility] [address] [id number] [address] [place] [address] Mar, [facility] [address] [id number] [address] [place] [address] Mar, Acute left ankle pain M25.57 2 [facility] [address] [id number] [address] [place] [address] Mar, Major depressive disorder, r ecurrent episode, moderate F33.1 [facility] [address] [id number] [address] [place] [address] Mar, Major depressive disorder, r ecurrent episode, moderate F33.1 ; Lumbago with sciatica, left side M54.42 and Lumbago with sciatica, right side M54.41 [place] [address] [facility] [id number] [address] [place] [address] Mar, [facility] [address] [place] [id number] [address] [place] [address] Mar, [facility] [address] [place] [id number] [address] [place] [address] Mar, Major depressive disorder, r ecurrent episode, moderate F33.1 ; Lumbago with sciatica, left side M54.42 and Lumbago with sciatica, right side M54.41 [facility] [address] [place] [id number] [address] [place] [address] Feb, Viral gastroenteritis A08.4 [facility] [address] [place] [id number] [address] [place] [address] Feb, Nausea and vomiting, intract ability of vomiting not specified, unspecified vomiting type R11.2 [place] [address] [place] [id number] [address] [place] [address] Feb, [facility] [address] [address] Feb, [place] [address] [place] [id number] [address] [place] [address] Feb, C. difficile colitis A04.72 ; Mood disorder F39 ; Lumbago with sciatica, left side M54.42 ; Lumbago with sciatica, right side M54.41 and Other chronic pain G89.29 [facility] [address] [place] [id number] [address] [place] [address] Jan, [facility] [address] [place] [id number] [address] [place] [address] Jan, Nausea & vomiting R11.2 [facility] [address] [place] [id number] [address] [place] [address] Dec, Irritable bowel syndrome wit h constipation K58.1 ; Other chronic pain G89.29 and Pain in right shoulder M25.511 [facility] IN [facility] [address] [facility] [id number] [address] [place] [address] Dec, Generalized abdominal pain R 10.84 and Nausea and vomiting, intractability of vomiting not specified, unspecified vomiting type R11.2 [facility] IN [facility] [address] [place] [id number] [address] [place] [address] Dec, [facility] [address] [address] Dec, Dysuria R30.0 and Irritable bowel K58.9 [facility] [address] [facility] [id number] [place] [address] Sep, Chronic nausea R11.0 [place] [address] [place] [id number] [place] [address] Sep, [place] [address] [address] Sep, Viral gastroenteritis A08.4 [facility] IN [facility] [address] [place] [id number] [address] [place] [address] Aug, Headache R51 ; Viral upper r espiratory tract infection J06.9 and Nausea R11.0 [facility] IN [facility] [address] [place] [id number] [address] [place] [address] Jun, Reflux gastritis K29.60 [place] [address] [address] Jun, [place] [address] [place] [id number] [address] [place] [address] May, [place] [address] [address] May, [place] [address] [address] Apr, Bowel habit changes R19.4 an d Acute cystitis without hematuria N30.00 [place] [address] [place] [address] Apr, Pain in right shoulder M25.5 11 [facility] [address] [id number] [address] [place] [address] Apr, [facility] [address] [id number] [address] [place] [address] Mar, [facility] [address] [id number] [address] [place] [address] Mar, [facility] [address] [id number] [address] [place] [address] Mar, [facility] [address] [id number] [address] [place] [address] Mar, [facility] [address] [id number] [address] [place] [address] 14 Feb, 2018 [facility] [address] [id number] [address] [place] [address] Feb, [facility] [address] [id number] [address] [place] [address] 05 Feb, 2018 [facility] [address] [id number] [address] [place] [address] Jan, [facility] [address] [id number] [address] [place] [address] Dec, [facility] [address] [id number] [address] [place] [address] Dec, Other chronic pain G89.29 ; Pain in right shoulder M25.511 and Liver enzyme elevation R74.8 [facility] [address] [id number] [address] [place] [address] Nov, Other chronic pain G89.29 an d Pain in right shoulder M25.511 [facility] [address] [id number] [address] [place] [address] October, [facility] [address] [id number] [address] [place] [address] October, Right shoulder pain, unspeci fied chronicity M25.511 [facility] [address] [place] [id number] [address] [place] [address] Aug, Elevated liver enzymes R74.8 and Hyperlipidemia LDL goal <100 E78.5 [facility] [address] [place] [id number] [address] [place] [address] Aug, [facility] [address] [place] [id number] [place] [address] Jul, [facility] [address] [place] [id number] [place] [address] Jul, Intractable chronic migraine without aura and with status migrainosus G43.711 ; Fever, unspecified fever cause R50.9 and Elevated liver enzymes R74.8 [place] [address] [address] Jun, Difficulty urinating R39.198 and Moderate persistent asthma with exacerbation J45.41 [place] [address] [place] [id number] [address] [place] [address] Jun, [place] [address] [place] [id number] [address] [place] [address] Jun, Moderate persistent asthma w ith exacerbation J45.41 [place] [address] [place] [id number] [address] [place] [address] May, Elevated liver enzymes R74.8 and Hyperlipidemia LDL goal <100 E78.5 [place] [address] [facility] [id number] [address] [place] [address] May, Elevated lipids E78.5 [place] [address] [place] [id number] [address] [place] [address] Apr, Elevated liver enzymes R74.8 [place] [address] [place] [id number] [address] [place] [address] Apr, Elevated liver enzymes R74.8 [place] [address] [facility] [id number] [address] [place] [address] Apr, Superior glenoid labrum lesi on of right shoulder, subsequent encounter S43.431D [facility] [address] [facility] [id number] [address] [place] [address] Apr, Hypokalemia E87.6 ; Major de pressive disorder, recurrent episode, moderate F33.1 ; Other abnormalities of breathing R06.89 and Dyspnea, unspecified R06.00 [facility] [address] [facility] [id number] [address] [place] [address] Mar, Moderate persistent asthma w [facility] complication J45.40 [place] [address] [place] [id number] [place] [address] Mar, Impingement syndrome of righ t shoulder M75.41 [place] [address] [address] Jan, [place] [address] [place] [id number] [place] [address] Jan, Chronic migraine without aur a with status migrainosus, not intractable G43.701 ; Essential hypertension I10 ; Irritable bowel K58.9 ; Primary insomnia F51.01 and Hypokalemia E87.6 [place] [address] [place] [id number] [address] [place] [address] Dec, [place] [address] [place] [id number] [address] [place] [address] Dec, Pain in right shoulder M25.5 11 [place] [address] [place] [id number] [address] [place] [address] Dec, Essential hypertension I10 [place] [address] [place] [id number] [address] [place] [address] Dec, [place] [address] [place] [id number] [address] [place] [address] Nov, Essential hypertension I10 [facility] [address] [id number] [address] [place] [address] 14 Nov, 2016 Pain in right shoulder M25.5 11 [facility] [address] [id number] [address] [place] [address] 13 Nov, 2016 Pain in right shoulder M25.5 11 [facility] [address] [id number] [address] [place] [address] October, [facility] [address] [id number] [address] [place] [address] October, Pain in right shoulder M25.5 11 [facility] [address] [id number] [address] [place] [address] Sep, Arm pain, right M79.601 [facility] [address] [id number] [address] [place] [address] Sep, [facility] [address] [id number] [address] [place] [address] Sep, Abnormal glucose R73.09 and Elevated lipids E78.5 [facility] [address] [id number] [address] [place] [address] Sep, Abnormal glucose R73.09 and Elevated lipids E78.5 [facility] [address] [facility] [id number] [address] [place] [address] Aug, [facility] [address] [id number] [address] [place] [address] Aug, [facility] [address] [id number] [address] [place] [address] Aug, [facility] [address] [facility] [id number] [address] [place] [address] Aug, Constipation by delayed colo reny transit K59.01 ; Hypokalemia E87.6 ; Irritable bowel K58.9 ; Essential hypertension I10 ; Pain in right shoulder M25.511 ; Seizure disorder G40.909 and Screening for lipid disorders Z13.220 [place] [address] [place] [id number] [address] [place] [address] 28 Jul, 2016 Other chronic pain G89.29 an d Pain in right shoulder M25.511 [place] [address] [place] [id number] [address] [place] [address] 14 Jul, 2016 Biceps muscle strain, right, subsequent encounter S46.111D [facility] [place] [address] [place] [id number] [place] [address] 08 Jul, 2016 Arm pain, right M79.601 [place] [address] [address] Jun, [place] [address] [address] Jun, Acute non-recurrent frontal sinusitis J01.10 [place] [address] [address] 14 May, 2016 Generalized abdominal pain R 10.84 ; Urinary tract infection without hematuria, site unspecified N39.0 ; Hypokalemia E87.6 ; Essential hypertension I10 ; Screening for lipid disorders Z13.220 ; Seizure R56.9 and Low back pain M54.5 [place] [address] [place] [id number] [address] [place] [address] Apr, [facility] [place] [address] [place] [id number] [address] [place] [address] Feb, [place] [address] [place] [id number] [address] [place] [address] Jan, [place] [address] [address] Dec, Constipation by delayed colo reny transit K59.01 ; Hypokalemia E87.6 ; Irritable bowel K58.9 and Nausea R11.0 [facility] [address] [place] [id number] [address] [place] [address] Dec, Generalized abdominal pain R 10.84 [facility] [address] [address] Nov, [facility] [address] [address] Aug, Acute bronchitis J20.9 [place] [address] [address] Aug, [place] [address] [address] Aug, Low back pain M54.5 ; Hypoka lemia E87.6 ; Chronic migraine without aura with status migrainosus, not intractable G43.701 ; Tremor, hereditary, benign G25.0 ; Irritable bowel K58.9 ; Essential hypertension I10 and Seizure R56.9 [place] [address] [address] Aug, [place] [address] [address] Jul, [place] [address] [address] 03 Jul, 2015 Low back pain M54.5 ; Hypoka lemia E87.6 ; Chronic migraine without aura with status migrainosus, not intractable G43.701 ; Tremor, hereditary, benign G25.0 ; Irritable bowel K58.9 ; Essential hypertension I10 and Seizure R56.9 [place] [address] [place] [id number] [address] [place] [address] Jun, Hypokalemia E87.6 [place] [address] [address] Jun, ADD (attention deficit disor dionicio) without hyperactivity F90.0 ; Generalized anxiety disorder F41.1 and Major depressive disorder, recurrent episode, moderate F33.1 [place] [address] [address] Jun, Low back pain M54.5 ; Hypoka lemia E87.6 ; Chronic migraine without aura with status migrainosus, not intractable G43.701 ; Tremor, hereditary, benign G25.0 ; Irritable bowel K58.9 ; Essential hypertension I10 and Seizure R56.9 [place] [id number] [place] [address] Jun, [place] [address] [address] May, [place] [address] [address] May, Low back pain M54.5 ; Hypoka lemia E87.6 ; Chronic migraine without aura with status migrainosus, not intractable G43.701 ; Tremor, hereditary, benign G25.0 ; Irritable bowel K58.9 ; Essential hypertension I10 ; Seizure R56.9 and Tinea capitis B35.0 [place] [address] [place] [id number] [address] [place] [address] 17 May, 2015 Low back pain M54.5 ; Hypoka lemia E87.6 ; Chronic migraine without aura with status migrainosus, not intractable G43.701 ; Tremor, hereditary, benign G25.0 ; Irritable bowel K58.9 ; Essential hypertension I10 ; Seizure R56.9 ; Otitis media, left H66.92 and Dysuria 788.1 [place] [address] [place] [id number] [address] [place] [address] May, Tooth pain K08.8 [place] [address] [address] May, [place] [address] [address] May, Low back pain M54.5 ; Hypoka lemia E87.6 ; Chronic migraine without aura with status migrainosus, not intractable G43.701 ; Tremor, hereditary, benign G25.0 ; Irritable bowel K58.9 and Essential hypertension I10 [facility] [address] [id number] [address] [place] [address] Apr, Low back pain M54.5 ; Hypoka lemia E87.6 ; Chronic migraine without aura with status migrainosus, not intractable G43.701 ; Tremor, hereditary, benign G25.0 and Irritable bowel K58.9 [facility] [address] [id number] [address] [place] [address] Apr, Low back pain M54.5 [facility] [address] [id number] [address] [place] [address] Mar, [facility] [address] [facility] [id number] [address] [place] [address] Mar, Irritable bowel syndrome wit h diarrhea K58.0 [facility] [address] [facility] [id number] [address] [place] [address] Mar, [facility] [address] [id number] [address] [place] [address] Feb, [facility] [address] [facility] [id number] [address] [place] [address] 08 Feb, 2015 [facility] [address] [facility] [id number] [address] [place] [address] 03 Feb, 2015 Irritable bowel syndrome 564 .1 ; Lumbago 724.2 and Cervical pain (neck) 723.1 [facility] [address] [facility] [id number] [address] [place] [address] Dec, Major depressive disorder, r ecurrent episode, moderate 296.32 and Generalized anxiety disorder 300.02 [facility] [address] [facility] [id number] [address] [place] [address] Nov, [facility] [address] [facility] [id number] [address] [place] [address] Nov, Major depressive disorder, r ecurrent episode, moderate 296.32 [facility] [address] [id number] [address] [place] [address] 08 Nov, 2014 Constipation 564.00 ; Nausea & vomiting 787.01 and Abdominal pain 789.00 [facility] [address] [id number] [address] [place] [address] Nov, [facility] [address] [id number] [place] [address] October, [facility] [address] [id number] [place] [address] October, [facility] [address] [id number] [address] [place] [address] October, [facility] [address] [id number] [address] [place] [address] October, [facility] [address] [id number] [address] [place] [address] Sep, Dysuria 788.1 [facility] [address] [id number] [address] [place] [address] Sep, [facility] [address] [id number] [address] [place] [address] Sep, [facility] [address] [facility] [id number] [address] [place] [id number] Sep, [facility] [address] [id number] [address] [place] [id number] Sep, [facility] [address] [id number] [address] [place] [id number] Aug, [facility] [address] [id number] [address] [place] [id number] Aug, [facility] [address] [id number] [address] [place] [id number] Aug, [facility] [address] [id number] [address] [place] [id number] Aug, [facility] [address] [id number] [address] [place] [address], [place] [address] Aug, [facility] [address] [id number] [address] [place] [address], [place] [id number] Aug, [facility] [address] [id number] [address] [place] [address], [place] [address] Aug, [facility] [address] [id number] [address] [place] [address], [place] [address] Aug, [facility] [address] [id number] [address] [place] [address], [place] [address] Aug, [facility] [address] [id number] [address] [place] [address], [place] [address] Aug, [facility] [address] [id number] [address] [place] [address], [place] [address] Jun, [facility] [address] [id number] [address] [place] [address], [place] [address] Jun, [facility] [address] [id number] [address] [place] [address], [place] [address] Jun, [facility] [address] [id number] [address] [place] [address], [place] [address] Jun, [facility] [address] [id number] [address] [place] [address], [place] [address] May, [facility] [address] [id number] [address] [place] [address], [place] [address] May, [facility] [address] [id number] [address] [place] [address], [place] [address] May, [facility] [address] [id number] [address] [place] [address], [place] [address] May, [facility] [address] [id number] [address] [place] [address], [place] [address] May, [facility] [address] [id number] [address] [place] [address], [place] [address] May, [facility] [address] [id number] [address] [place] [address], [place] [address] May, [facility] [address] [id number] [address] [place] [address], [place] [address] May, [facility] [address] [id number] [address] [place] [address], [place] [address] Mar, [facility] [address] [id number] [address] [place] [address], [place] [address] Mar, [facility] [address] [id number] [address] [place] [address], [place] [address] Mar, [facility] [address] [id number] [address] [place] [address], [place] [address] Mar, [facility] [address] [id number] [address] [place] [address], [place] [address] Mar, [facility] [address] [id number] [address] [place] [address], [place] [address] Mar, [facility] [address] [id number] [address] [place] [address], [place] [address] Mar, [facility] [address] [id number] [address] [place] [address], [place] [address] Mar, [facility] [address] [id number] [address] [place] [address], [place] [address] Mar, [facility] [address] [id number] [address] [place] [address], [place] [address] Mar, [facility] [address] [id number] [address] [place] [address], [place] [address] Mar, [facility] [address] [id number] [address] [place] [address], [place] [address] Mar, [facility] [address] [id number] [address] [place] [address], [place] [address] 24 Feb, 2014 [facility] [address] [id number] [facility] [place] [address] Feb, [facility] [address] [id number] [facility] [place] [address] Feb, [facility] [address] [id number] [facility] [place] [address] Feb, [facility] [address] [id number] [address] [place] [address], [place] [address] Feb, [facility] [address] [id number] [address] [place] [address], [place] [address] Feb, [facility] [address] [id number] [address] [place] [address], [place] [address] Jan, [facility] [address] [id number] [address] [place] [address], [place] [address] Jan, [facility] [address] [id number] [address] [place] [address], [place] [address] Jan, [facility] [address] [id number] [address] [place] [address], [place] [address] Jan, [facility] [address] [id number] [address] [place] [address], [place] [address] Jan, [facility] [address] [id number] [address] [place] [address], [place] [address] Jan, [facility] [address] [id number] [address] [place] [address], [place] [address] Jan, [facility] [address] [id number] [address] [place] [address], [place] [address] Jan, [facility] [address] [id number] [address] [place] [address], [place] [address] Dec, [facility] [address] [id number] [address] [place] [address], [place] [address] Dec, [facility] [address] [id number] [address] [place] [address], [place] [address] Dec, [facility] [address] [id number] [facility] [place] [address] Dec, [facility] [address] [id number] [address] [place] [address], [place] [address] Dec, [facility] [address] [id number] [address] [place] [address], [place] [address] Dec, [facility] [address] [id number] [address] [place] [address], [place] [address] Dec, [facility] [address] [id number] [address] [place] [address], [place] [address] Dec, [facility] [address] [id number] [address] [place] [address], [place] [address] October, [facility] [address] [id number] [address] [place] [address], [place] [address] October, [facility] [address] [id number] [address] [place] [address], [place] [address] Sep, [facility] [address] [id number] [address] [place] [address], [place] [address] Sep, [facility] [address] [id number] [address] [place] [address], [place] [address] Sep, [facility] [address] [id number] [address] [place] [address], [place] [address] Sep, [facility] [address] [id number] [address] [place] [address], [place] [address] Sep, [facility] [address] [id number] [address] [place] [address], [place] [address] Sep, [facility] [address] [id number] [address] [place] [address], [place] [address] Sep, [facility] [address] [id number] [address] [place] [address], [place] [address] Sep, [facility] [address] [id number] [address] [place] [address], [place] [address] Sep, [facility] [address] [id number] [address] [place] [address], [place] [address] Sep, [facility] [address] [id number] [address] [place] [address], [place] [address] Sep, [facility] [address] [id number] [address] [place] [address], [place] [address] Sep, [facility] [address] [id number] [address] [place] [address], [place] [address] Aug, [facility] [address] [id number] [address] [place] [address], [place] [address] Aug, [facility] [address] [id number] [address] [place] [address], [place] [address] Aug, [facility] [address] [id number] [address] [place] [address], [place] [address] Jun, [facility] [address] [id number] [address] [place] [address], [place] [address] Jun, [facility] [address] [id number] [address] [place] [address], [place] [address] Jun, [facility] [address] [id number] [address] [place] [address], [place] [address] Jun, [facility] [address] [id number] [address] [place] [address], [place] [address] Jun, [facility] [address] [id number] [address] [place] [address], [place] [address] Jun, [facility] [address] [id number] [address] [place] [address], [place] [address] Jun, [facility] [address] [id number] [address] [place] [address], [place] [address] Jun, [facility] [address] [id number] [address] [place] [address], [place] [address] Jun, [facility] [address] [id number] [address] [place] [address], [place] [address] Jun, [facility] [address] [id number] [address] [place] [address], [place] [address] May, [facility] [address] [id number] [address] [place] [address], [place] [address] May, [facility] [address] [id number] [address] [place] [address], [place] [address] May, [facility] [address] [id number] [address] [place] [address], [place] [address] May, [facility] [address] [id number] [address] [place] [address], [place] [address] Apr, [facility] [address] [id number] [address] [place] [address], [place] [address] Apr, [facility] [address] [id number] [address] [place] [address], [place] [address] Apr, [facility] [address] [id number] [address] [place] [address], [place] [address] Apr, [facility] [address] [id number] [address] [place] [address] Apr, [facility] [address] [id number] [address] [place] [address] Apr, [facility] [address] [id number] [address] [place] [address] Apr, [facility] [address] [id number] [address] [place] [address], [place] [address] Apr, [facility] [address] [id number] [address] [place] [address], [place] [address] Mar, [facility] [address] [id number] [address] [place] [address] Mar, [facility] [address] [id number] [address] [place] [address] Mar, [facility] [address] [id number] [address] [place] [address], [place] [address] Mar, [facility] [address] [id number] [address] [place] [address], [place] [address] Mar, [facility] [address] [id number] [address] [place] [address], [place] [address] Feb, [facility] [address] [id number] [address] [place] [address], [place] [address] Feb, [facility] [address] [id number] [address] [place] [address], [place] [address] Feb, [facility] [address] [id number] [address] [place] [address], [place] [address] Feb, [facility] [address] [id number] [address] [place] [address], [place] [address] Feb, [facility] [address] [id number] [address] [place] [address], [place] [address] Jan, [facility] [address] [id number] [address] [place] [address], [place] [address] Jan, [facility] [address] [id number] [address] [place] [address], [place] [address] Nov, [facility] [address] [id number] [address] [place] [address], [place] [address] Nov, [facility] [address] [id number] [address] [place] [address], [place] [address] Nov, [facility] [address] [id number] [address] [place] [address], [place] [address] Nov, [facility] [address] [id number] [address] [place] [address], [place] [address] October, [facility] [address] [id number] [address] [place] [address], [place] [address] Sep, [facility] [address] [id number] [address] [place] [address], [place] [address] Aug, [facility] [address] [id number] [address] [place] [address], [place] [address] Aug, [facility] [address] [id number] [address] [place] [address], [place] [address] Aug, [facility] [address] [id number] [address] [place] [address], [place] [address] Aug, [facility] [address] [id number] [address] [place] [address], [place] [address] Jul, [facility] [address] [id number] [address] [place] [address], [place] [address] Jun, [facility] [address] [id number] [address] [place] [address], [place] [address] Jun, [facility] [address] [id number] [address] [place] [address], [place] [address] May, [facility] [address] [id number] [address] [place] [address], [place] [address] May, [facility] [address] [id number] [address] [place] [address], [place] [id number] Mar, [facility] [address] [id number] [address] [place] [address], [place] [address] Mar, [facility] [address] [id number] [address] [place] [address], [place] [address] Mar, [facility] [address] [id number] [address] [place] [address], [place] [address] Mar, [facility] [address] [id number] [address] [place] [address], [place] [address] Mar, [facility] [address] [id number] [address] [place] [address], [place] [address] Mar, [facility] [address] [id number] [address] [place] [address], [place] [address] Mar, [facility] [address] [id number] [address] [place] [address], [place] [address] 23 Mar, 2011 [facility] [address] [id number] [address] [place] [address], [place] [address] 22 Mar, 2012 [facility] [address] [id number] [address] [place] [address], [place] [address] 20 Mar, 2012 [facility] [address] [id number] [address] [place] [address], [place] [address] 20 Mar, 2012 [facility] [address] [id number] [address] [place] [address], [place] [address] 17 Mar, 2012 [facility] [address] [id number] [address] [place] [address], [place] [address] 17 Mar, 2012 [facility] [address] [id number] [address] [place] [address], [place] [address] 15 Mar, 2012 [facility] [address] [id number] [address] [place] [address] 15 Mar, 2012 [facility] [address] [id number] [address] [place] [address], [place] [address] 15 Mar, 2012 [facility] [address] [id number] [address] [place] [address] 15 Mar, 2012 [facility] [address] [id number] [address] [place] [address] Mar, [facility] [address] [id number] [address] [place] [address] 11 Mar, 2012 [facility] [address] [id number] [address] [place] [address] 08 Mar, 2012 [facility] [address] [id number] [address] [place] [address] 08 Mar, 2012 [facility] [address] [id number] [address] [place] [address] Mar, [facility] [address] [id number] [address] [place] [address], [place] [address] 01 Mar, 2012 [facility] [address] [id number] [address] [place] [address], [place] [address] 19 Sep, 2011 [facility] [address] [id number] [address] [place] [address], [place] [address] 18 Sep, 2011 [facility] [address] [id number] [address] [place] [address], [place] [address] 17 Sep, 2011 [facility] [address] [id number] [address] [place] [address], [place] [address] 14 Sep, 2011 [facility] [address] [id number] [address] [place] [address], [place] [address] 14 Feb, 2011 [facility] [address] [id number] [address] [place] [address], [place] [address] 12 Feb, 2011 [facility] [address] [id number] [address] [place] [address], [place] [address] 10 Feb, 2011 [facility] [address] [id number] [address] [place] [address], [place] [address] 31 Jan, 2012 [facility] [address] [id number] [address] [place] [address], [place] [address] 30 Jan, 2012 [facility] [address] [id number] [address] [place] [address], [place] [address] 22 Jan, 2012 [facility] [address] [id number] [address] [place] [address], [place] [address] 20 Jan, 2012 [facility] [address] [id number] [address] [place] [address], [place] [address] 17 Jan, 2012 [facility] [address] [id number] [address] [place] [address], [place] [address] 17 Jan, 2012 [facility] [address] [id number] [address] [place] [address], [place] [address] 17 Jan, 2012 [facility] [address] [id number] [address] [place] [address], [place] [address] 16 Jan, 2012 [facility] [address] [id number] [address] [place] [address], [place] [address] Jan, [facility] [address] [id number] [address] [place] [address], [place] [address] Jan, [facility] [address] [id number] [address] [place] [address], [place] [address] 26 Dec, 2011 [facility] [address] [id number] [address] [place] [address], [place] [address] 24 Dec, 2011 [facility] [address] [id number] [address] [place] [address], [place] [address] 23 Dec, 2011 [facility] [address] [id number] [address] [place] [address], [place] [address] Dec, [facility] [address] [id number] [address] [place] [address], [place] [address] 18 Dec, 2011 [facility] [address] [id number] [address] [place] [address], [place] [address] 17 Dec, 2011 [facility] [address] [id number] [address] [place] [address], [place] [address] 16 Dec, 2011 [facility] [address] [id number] [address] [place] [address], [place] [address] 14 Dec, 2011 [facility] [address] [id number] [address] [place] [address], [place] [address] Dec, [facility] [address] [id number] [address] [place] [address], [place] [address] Dec, [facility] [address] [id number] [address] [place] [address], [place] [address] Dec, [facility] [address] [id number] [address] [place] [address], [place] [address] Nov, [facility] [address] [id number] [address] [place] [address], [place] [id number] Nov, [facility] [address] [id number] [address] [place] [address], [place] [address] Nov, [facility] [address] [facility] [id number] [address] [place] [id number] Nov, [facility] [address] [facility] [id number] [address] [place] [id number] Nov, [facility] [address] [facility] [id number] [address] [place] [id number] Nov, [facility] [address] [facility] [id number] [address] [place] [id number] Nov, [facility] [address] [facility] [id number] [address] [place] [id number] Nov, [facility] [address] [facility] [id number] [address] [place] [id number] Nov, [facility] [address] [facility] [id number] [address] [place] [id number] Nov, [facility] [address] [facility] [id number] [address] [place] [id number] October, IMMUNIZATIONS No Known Immunizations SOCIAL HISTORY [...]
--- OUTSIDE RECORDS SUMMARY | 2019-11-15 09:41 | XMS REPORT ---
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 Name Role Phone JEFF CONNORS Unavailable PROBLEMS Type Condition ICD9-CM Code RCA97-GQ Code Onset Dates Condition S tatus SNOMED Code Problem Elevated liver enzymes R74.8 Active 636963337 Problem Abnormal glucose R73.09 Active 102 477398 Problem Major depressive disorder, recurrent episode, moderate F33.1 Active 468613354 Problem Hyperlipidemia LDL goal <100 E78.5 A ctive 48561241 Problem Other chronic pain G89.29 Active 8 2911667 Problem Intractable chronic migraine without aura and wi th status migrainosus G43.711 Active 808656559 Problem Essential hypertension I10 Active 01294278 Problem Hypokalemia E87.6 Active 59939028 Problem Other chronic pain G89.29 Active 8 5211119 Problem 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 Active 36694100 Problem Primary insomnia F51.01 Active 397 2004 Problem Seizure disorder G40.909 Active 128 202184 Problem Moderate persistent asthma with exacerbation J45.4 1 Active 388100740 Problem Moderate persistent asthma without complication J4 5.40 Active 670911038 Problem Reflux gastritis K29.60 Active 729 94801 Problem Irritable bowel syndrome with constipation K58.1 Active 857488717 Problem Lumbago with sciatica, left side M54.42 Active 755793687 Problem Migraine with aura and without status migrainosu s, not intractable G43.109 Active 9206405 Problem Irritable bowel K58.9 Active 1074 3008 Problem History of hypokalemia Z86.39 Active 103130409 Problem Tremor, hereditary, benign G25.0 Act caitlin 380957259 Problem Chronic migraine without aura with statu s migrainosus, not intractable G43.701 Active 379559838 Problem Lumbago with sciatica, right side M54.41 Active 036162342087300 Problem Mood disorder F39 Active 955388 05 Problem RLS (restless legs syndrome) G25.81 A ctive 11349868 Problem Aneurysm I72.9 Active 66011199 ALLERGIES No Information ENCOUNTERS Encounter Location Date Diagnosis [facility] [address] [place] [address] 07 Aug, 2019 Influenza A J10.1 [place] [address] [address] Aug, [place] [address] [address] Aug, Tinea pedis of both feet B35.3 and Migra ine with aura and without status migrainosus, not intractable G43.109 [place] [address] [address] Jul, [facility] IN [facility] [address] [place] [address] 19 Jul, 2019 Rib pain on left side R07.81 [place] [address] [address] 10 Jul, 2019 Seizure disorder G40.909 and Aneurysm I7 2.9 [place] [address] [address] 07 Jul, 2019 [place] [address] [address] 06 Jul, 2019 Seizure disorder G40.909 ; Aneurysm I72. 9 ; Migraine with aura and without status migrainosus, not intractable G43.109 and History of hypokalemia Z86.39 [place] [address] [address] 04 Jul, 2019 [place] [address] [address] Jun, [place] [address] [address] Jun, Seizures R56.9 ; Migraine with aura and without status migrainosus, not intractable G43.109 ; Other chronic pain G89.29 and Pain in right shoulder M25.511 [place] [address] [address] Jun, [place] [address] [address] May, Primary insomnia F51.01 ; Intractable ch ronic migraine without aura and with status migrainosus G43.711 and Aneurysm I72.9 [place] [address] [address] Apr, RLS (restless legs syndrome) G25.81 and Mood disorder F39 [place] [address] [address] Apr, [place] [address] [address] Mar, Other chronic pain G89.29 and Pain in ri ght shoulder M25.511 [place] [address] [address] Mar, Acute left ankle pain M25.572 [place] [address] [address] Mar, [place] [address] [address] Mar, Acute left ankle pain M25.572 [place] [address] [address] Mar, Major depressive disorder, recurrent epi sode, moderate F33.1 [place] [address] [address] Mar, Major depressive disorder, recurrent epi sode, moderate F33.1 ; Lumbago with sciatica, left side M54.42 and Lumbago with sciatica, right side M54.41 [place] [address] [address] Mar, [place] [address] [address] Mar, [place] [address] [address] Mar, Major depressive disorder, recurrent epi sode, moderate F33.1 ; Lumbago with sciatica, left side M54.42 and Lumbago with sciatica, right side M54.41 [place] [address] [address] Feb, Viral gastroenteritis A08.4 [facility]ALK IN [place] [id number] [place] [address] Feb, Nausea and vomiting, intract ability of vomiting not specified, unspecified vomiting type R11.[address] [address] Feb, [place] [address] [address] Feb, [place] [address] [address] Feb, C. difficile colitis A04.72 ; Mood disor dionicio F39 ; Lumbago with sciatica, left side M54.42 ; Lumbago with sciatica, right side M54.41 and Other chronic pain G89.29 [place] [address] [address] Jan, [facility] [address] [place] [id number] [place] [address] Jan, Nausea & vomiting R11.[address] [address] Dec, Irritable bowel syndrome with constipati on K58.1 ; Other chronic pain G89.29 and Pain in right shoulder M25.511 [facility] CARE [address] [place], [place] [id number] [address] [place] [address] Dec, Generalized abdominal pain R 10.84 and Nausea and vomiting, intractability of vomiting not specified, unspecified vomiting type R11.2 [facility] [address] [place] [id number] [place] [address] Dec, [facility] [address] [address] Dec, Dysuria R30.0 and Irritable bowel K58.9 [facility] [address] [id number] [place] [address] Sep, Chronic nausea R11.0 [place] [address] [address] Sep, [place] [address] [address] Sep, Viral gastroenteritis A08.4 [facility] IN [facility] [address] [address] Aug, Headache R51 ; Viral upper r espiratory tract infection J06.9 and Nausea R11.0 [facility] IN [facility] [address] [address] Jun, Reflux gastritis K29.60 [place] [address] [address] Jun, [place] [address] [address] May, [place] [address] [address] May, [place] [address] [address] Apr, Bowel habit changes R19.4 and Acute cyst itis without hematuria N30.00 [place] [address] [address] Apr, Pain in right shoulder M25.511 [place] [address] [address] Apr, [facility] [address] [place] [id number] [place] [address] Mar, [facility] [address] [place] [id number] [place] [address] Mar, [facility] [address] [place] [id number] [place] [address] Mar, [facility] [address] [place] [id number] [place] [address] Mar, [facility] [address] [address] Feb, [facility] [address] [address] Feb, [facility] [address] [place] [id number] [place] [address] Feb, [facility] [address] [address] Jan, [facility] [address] [place] [id number] [place] [address] Dec, [facility] [address] [address] Dec, Other chronic pain G89.29 ; Pain in righ t shoulder M25.511 and Liver enzyme elevation R74.8 [facility] [address] [place] [id number] [place] [address] Nov, Other chronic pain G89.29 and Pain in ri ght shoulder M25.511 [facility] [address] [facility] [place] [address] October, [facility] [address] [facility] [id number] [address] [place] [address] October, Right shoulder pain, unspeci fied chronicity M25.511 [facility] [address] [id number] [place] [address] Aug, Elevated liver enzymes R74.8 and Hyperli pidemia LDL goal <100 E78.5 [place] [address] [address] Aug, [place] [address] [address] Jul, [place] [address] [address] Jul, Intractable chronic migraine without aur a and with status migrainosus G43.711 ; Fever, unspecified fever cause R50.9 and Elevated liver enzymes R74.8 [place] [address] [address] Jun, Difficulty urinating R39.198 and Moderat e persistent asthma with exacerbation J45.41 [place] [address] [address] Jun, [place] [address] [address] Jun, Moderate persistent asthma with exacerba tion J45.41 [place] [address] [address] May, Elevated liver enzymes R74.8 and Hyperli pidemia LDL goal <100 E78.5 [place] [address] [address] May, Elevated lipids E78.5 [place] [address] [address] Apr, Elevated liver enzymes R74.8 [place] [address] [address] Apr, Elevated liver enzymes R74.8 [place] [address] [address] Apr, Superior glenoid labrum lesion of right shoulder, subsequent encounter S43.431D [place] [address] [address] 28 Nov, 2017 Hypokalemia E87.6 ; Major depressive dis order, recurrent episode, moderate F33.1 ; Other abnormalities of breathing R06.89 and Dyspnea, unspecified R06.00 [facility] [address] [facility] [id number] [address] [place] [address] Mar, Moderate persistent asthma w the [facility] complication J45.40 [place] [address] [address] Mar, Impingement syndrome of right shoulder M 75.41 [place] [address] [address] Jan, [place] [address] [address] Jan, Chronic migraine without aura with statu s migrainosus, not intractable G43.701 ; Essential hypertension I10 ; Irritable bowel K58.9 ; Primary insomnia F51.01 and Hypokalemia E87.6 [place] [address] [address] Dec, [place] [address] [address] Dec, Pain in right shoulder M25.511 [place] [address] [address] Dec, Essential hypertension I10 [place] [address] [address] Dec, [place] [address] [address] Nov, Essential hypertension I10 [place] [address] [address] Nov, Pain in right shoulder M25.511 [place] [address] [address] Nov, Pain in right shoulder M25.511 [place] [address] [address] October, [place] [address] [address] October, Pain in right shoulder M25.511 [place] [address] [address] Sep, Arm pain, right M79.601 [place] [address] [address] Sep, [place] [address] [address] Sep, Abnormal glucose R73.09 and Elevated lip ids E78.5 [place] [address] [address] Sep, Abnormal glucose R73.09 and Elevated lip ids E78.5 [place] [address] [address] Aug, [place] [address] [address] Aug, [place] [address] [address] Aug, [place] [address] [address] Aug, 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 ; Hypokalemia E87.6 ; Irritable bowel K58.9 ; Essential hypertension I10 ; Pain in right shoulder M25.511 ; Seizure disorder G40.909 and Screening for lipid disorders Z13.220 [place] [address] [address] 28 Jul, 2016 Other chronic pain G89.29 and Pain in ri ght shoulder M25.511 [place] [address] [address] 14 Jul, 2016 Biceps muscle strain, right, subsequent encounter S46.111D [facility] [address] [facility] [id number] [address] [place] [address] 08 Jul, 2016 Arm pain, right M79.601 [facility] [address] [address] Jun, [place] [address] [address] Jun, Acute non-recurrent frontal sinusitis J0 1.10 [place] [address] [address] May, Generalized abdominal pain R10.84 ; Urin rohan tract infection without hematuria, site unspecified N39.0 ; Hypokalemia E87.6 ; Essential hypertension I10 ; Screening for lipid disorders Z13.220 ; Seizure R56.9 and Low back pain M54.5 [place] [address] [address] Apr, [facility] IN [facility] [address] [facility] [id number] [address] [address] Feb, [place] [address] [address] Jan, [place] [address] [address] Dec, 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 ; Hypokalemia E87.6 ; Irritable bowel K58.9 and Nausea R11.0 [facility] IN [facility] [address] [facility] [id number] [place] [address] Dec, Generalized abdominal pain R 10.84 [place] [address] [address] Nov, [facility] IN [facility] [address] [facility] [id number] [place] [address] 14 Aug, 2015 Acute bronchitis J20.9 [place] [address] [address] Aug, [place] [address] [address] 08 Aug, 2015 Low back pain M54.5 ; Hypokalemia E87.6 ; Chronic migraine without aura with status migrainosus, not intractable G43.701 ; Tremor, hereditary, benign G25.0 ; Irritable bowel K58.9 ; Essential hypertension I10 and Seizure R56.9 [place] [address] [address] Aug, [place] [address] [address] Jul, [place] [address] [address] Jul, Low back pain M54.5 ; Hypokalemia E87.6 ; Chronic migraine without aura with status migrainosus, not intractable G43.701 ; Tremor, hereditary, benign G25.0 ; Irritable bowel K58.9 ; Essential hypertension I10 and Seizure R56.9 [place] [address] [address] Jun, Hypokalemia E87.6 [place] [address] [address] Jun, ADD (attention deficit disorder) without hyperactivity F90.0 ; Generalized anxiety disorder F41.1 and Major depressive disorder, recurrent episode, moderate F33.1 [place] [address] [address] Jun, Low back pain M54.5 ; Hypokalemia E87.6 ; Chronic migraine without aura with status migrainosus, not intractable G43.701 ; Tremor, hereditary, benign G25.0 ; Irritable bowel K58.9 ; Essential hypertension I10 and Seizure R56.9 [place] [address] [address] Jun, [place] [address] [address] May, [address] [address] May, Low back pain M54.5 ; Hypokalemia E87.6 ; Chronic migraine without aura with status migrainosus, not intractable G43.701 ; Tremor, hereditary, benign G25.0 ; Irritable bowel K58.9 ; Essential hypertension I10 ; Seizure R56.9 and Tinea capitis B35.0 [place] [address] [address] May, Low back pain M54.5 ; Hypokalemia E87.6 ; Chronic migraine without aura with status migrainosus, not intractable G43.701 ; Tremor, hereditary, benign G25.0 ; Irritable bowel K58.9 ; Essential hypertension I10 ; Seizure R56.9 ; Otitis media, left H66.92 and Dysuria 788.1 [place] [address] [address] May, Tooth pain K08.8 [place] [address] [address] May, [place] [address] [address] May, Low back pain M54.5 ; Hypokalemia E87.6 ; Chronic migraine without aura with status migrainosus, not intractable G43.701 ; Tremor, hereditary, benign G25.0 ; Irritable bowel K58.9 and Essential hypertension I10 [place] [address] [address] Apr, Low back pain M54.5 ; Hypokalemia E87.6 ; Chronic migraine without aura with status migrainosus, not intractable G43.701 ; Tremor, hereditary, benign G25.0 and Irritable bowel K58.9 [place] [address] [address] Apr, Low back pain M54.5 [place] [address] [address] Mar, [place] [address] [address] Mar, Irritable bowel syndrome with diarrhea K 58.0 [facility] [address] [address] Mar, [facility] [address] [address] Feb, [facility] [address] [address] Feb, [facility] [address] [address] Feb, Irritable bowel syndrome 564.1 ; Lumbago 724.2 and Cervical pain (neck) 723.1 [facility] [address] [address] Dec, Major depressive disorder, recurrent epi sode, moderate 296.32 and Generalized anxiety disorder 300.02 [facility] [address] [address] Nov, [facility] [address] [address] Nov, Major depressive disorder, recurrent epi sode, moderate 296.32 [facility] [address] [address] Nov, Constipation 564.00 ; Nausea & vomiting 787.01 and Abdominal pain 789.00 [facility] [address] [address] Nov, [facility] [address] [address] October, [facility] [address] [address] October, [facility] [address] [address] October, [facility] [address] [address] October, [facility] [address] [id number] [place] [address] 30 Sep, 2014 Dysuria 788.1 [facility] [address] [id number] [place] [address] 30 Sep, 2014 [facility] [address] [id number] [place] [address] 30 Sep, 2014 [facility] [address] [id number] [place] [address] 14 Sep, 2014 [facility] [address] [id number] [place] [address] Sep, [facility] [address] [id number] [place] [address] 30 Aug, 2014 [facility] [address] [id number] [place] [address] Aug, [facility] [address] [id number] [place] [address] Aug, [facility] [address] [id number] [place] [address] Aug, [facility] [address] [id number] [place] [address] Aug, [facility] [address] [id number] [place] [address] Aug, [facility] [address] [id number] [place] [address] Aug, [facility] [address] [id number] [place] [address] Aug, [facility] [address] [id number] [place] [address] Aug, [facility] [address] [id number] [place] [address] Aug, [facility] [address] [id number] [place] [address] Jun, [facility] [address] [id number] [place] [address] Jun, [facility] [address] [facility] [id number] [place] [address] Jun, [facility] [address] [id number] [place] [address] Jun, [facility] [address] [id number] [place] [address] May, [facility] [address] [id number] [place] [address] May, [facility] [address] [id number] [place] [address] May, [facility] [address] [id number] [place] [address] May, [facility] [address] [id number] [place] [address] May, [facility] [address] [id number] [place] [address] May, [facility] [address] [id number] [place] [address] May, [facility] [address] [id number] [place] [address] May, [facility] [address] [id number] [place] [address] Mar, [facility] [address] [id number] [place] [address] Mar, [facility] [address] [id number] [place] [address] Mar, [facility] [address] [id number] [place] [address] Mar, [facility] [address] [id number] [place] [address] Mar, [facility] [address] [id number] [place] [address] Mar, [facility] [address] [facility] [id number] [place] [address] 14 Mar, 2014 [facility] [address] [facility] [id number] [place] [address] Mar, [facility] [address] [facility] [id number] [place] [address] Mar, [facility] [address] [id number] [place] [address] Mar, [facility] [address] [facility] [id number] [place] [address] Mar, [facility] [address] [facility] [id number] [place] [address] Mar, [facility] [address] [id number] [place] [address] Feb, [facility] [address] [id number] [place] [address] 24 Feb, 2014 [facility] [address] [id number] [place] [address] Feb, [facility] [address] [id number] [place] [address] Feb, [facility] [address] [id number] [place] [address] Feb, [facility] [address] [id number] [place] [address] Feb, [facility] [address] [id number] [place] [address] Jan, [facility] [address] [facility] [id number] [place] [address] Jan, [facility] [address] [id number] [place] [address] Jan, [facility] [address] [id number] [place] [address] Jan, [facility] [address] [id number] [place] [address] Jan, [facility] [address] [facility] [id number] [place] [address] Jan, [facility] [address] [facility] [id number] [place] [address] Jan, [facility] [address] [facility] [id number] [place] [address] Jan, [facility] [address] [id number] [place] [address] Dec, [facility] [address] [facility] [id number] [place] [address] Dec, [facility] [address] [id number] [place] [address] Dec, [facility] [address] [id number] [place] [address] Dec, [facility] [address] [id number] [place] [address] Dec, [facility] [facility] [address] [id number] [place] [address] Dec, [facility] [place] [facility] [address] [id number] [place] [address] Dec, [facility] [place] [facility] [address] [id number] [place] [address] Dec, [facility] [place] [facility] [address] [id number] [place] [address] October, [facility] [place] [facility] [address] [id number] [place] [address] October, [facility] [place] [facility] [address] [id number] [place] [address] Sep, [facility] [place] [facility] [address] [id number] [place] [address] Sep, [facility] [place] [facility] [address] [id number] [place] [address] Sep, [facility] [place] [facility] [address] [id number] [place] [address] Sep, [facility] [place] [facility] [address] [facility] [id number] [facility] [place] [address] Sep, [facility] [facility] [address] [facility] [id number] [facility] [place] [address] Sep, [facility] [address] [id number] [facility] [place] [address] Sep, [facility] [place] [facility] [address] [facility] [id number] [facility] [place] [address] Sep, [facility] [facility] [address] [facility] [id number] [facility] [place] [address] Sep, [facility] [place] [address] [id number] [facility] [place] [address] Sep, [facility] [place] [facility] [address] [id number] [facility] [place] [address] Sep, [facility] [facility] [address] [id number] [place] [address] Sep, [facility] [place] [facility] [address] [facility] [id number] [facility] [place] [address] Aug, [facility] [address] [id number] [place] [address] Aug, [facility] [address] [id number] [place] [address] Aug, [facility] [address] [id number] [place] [address] Jun, [facility] [address] [facility] [id number] [facility] [place] [address] Jun, [facility] [address] [id number] [place] [address] Jun, [facility] [address] [id number] [place] [address] Jun, [facility] [address] [id number] [place] [address] Jun, [facility] [address] [id number] [place] [address] 14 Jun, 2013 [facility] [address] [id number] [place] [address] Jun, [facility] [address] [id number] [place] [address] Jun, [facility] [address] [id number] [place] [address] Jun, [facility] [address] [id number] [place] [address] Jun, [facility] [facility] [address] [id number] [place] [address] May, [facility] [place] [facility] [address] [id number] [place] [address] May, [facility] [address] [id number] [place] [address] May, [facility] [address] [id number] [place] [address] May, [facility] [address] [id number] [place] [address] Apr, [facility] [address] [id number] [place] [address] Apr, [facility] [address] [id number] [place] [address] Apr, [facility] [address] [id number] [place] [address] Apr, [facility] [address] [id number] [place] [address] Apr, [facility] [id number] [place] [address] Apr, [facility] [address] [id number] [place] [address] Apr, [facility] [id number] [place] [address] Apr, [facility] [address] [id number] [place] [address] Mar, [facility] [address] [id number] [place] [address] Mar, [facility] [address] [id number] [place] [address] Mar, [facility] [address] [id number] [place] [address] Mar, [facility] [address] [id number] [place] [address] Mar, [facility] [address] [id number] [place] [address] Feb, [facility] [address] [id number] [place] [address] Feb, [facility] [place] [address] [id number] [place] [address] Feb, [facility] [place] [address] [id number] [place] [address] Feb, [facility] [place] [address] [id number] [place] [address] Feb, [facility] [address] [id number] [place] [address] Jan, [facility] [address] [id number] [place] [address] Jan, [facility] [address] [id number] [place] [address] Nov, [facility] [address] [id number] [place] [address] Nov, [facility] [place] [address] [id number] [place] [address] Nov, [facility] [address] [id number] [place] [address] Nov, [facility] [address] [id number] [place] [address] October, [facility] [place] [address] [facility] [id number] [place] [address] Sep, [facility] [address] [facility] [id number] [place] [address] Aug, [facility] [address] [id number] [place] [address] Aug, [facility] [address] [id number] [place] [address] Aug, [facility] [address] [facility] [id number] [place] [address] Aug, [facility] [address] [id number] [place] [address] Jul, [facility] [address] [id number] [place] [address] Jun, [facility] [address] [id number] [place] [address] Jun, [facility] [place] [address] [id number] [place] [address] May, [facility] [place] [facility] [address] [id number] [place] [address] May, [facility] [address] [facility] [id number] [place] [id number] Mar, [facility] [place] [facility] [address] [id number] [place] [address] Mar, [facility] [place] [facility] [address] [id number] [place] [address] Mar, [facility] [place] [facility] [address] [id number] [place] [address] Mar, [facility] [place] [facility] [address] [id number] [place] [address] Mar, [facility] [place] [facility] [address] [id number] [place] [address] Mar, [facility] [place] [facility] [address] [id number] [place] [address] 23 Mar, 2011 [facility] [place] [facility] [address] [facility] [id number] [place] [address] 23 Mar, 2011 [facility] [place] [facility] [address] [facility] [id number] [place] [address] 22 Mar, 2011 [facility] [place] [facility] [address] [id number] [place] [address] 20 Mar, 2011 [facility] [place] [facility] [address] [id number] [place] [address] 20 Mar, 2011 [facility] [place] [facility] [address] [facility] [id number] [place] [address] 17 Mar, 2011 [facility] [place] [facility] [address] [id number] [place] [address] 17 Mar, 2011 [facility] [place] [facility] [address] [id number] [place] [address] 15 Mar, 2011 [facility] [place] [facility] [address] [id number] [place] [address] 15 Mar, 2011 [facility] [place] [facility] [address] [id number] [place] [address] 15 Mar, 2011 [facility] [place] [facility] [address] [id number] [place] [address] 15 Mar, 2011 [facility] [place] [facility] [address] [id number] [place] [address] Mar, 2011 [facility] [place] [facility] [address] [id number] [place] [address] Mar, 2011 [facility] [place] [facility] [address] [facility] [id number] [place] [address] 08 Mar, 2011 [facility] [place] [facility] [address] [id number] [place] [address] 08 Mar, 2011 [facility] [place] [facility] [address] [id number] [place] [address] Mar, [facility] [place] [facility] [address] [id number] [place] [address] 01 Mar, 2012 [facility] [place] [facility] [address] [id number] [place] [address] 19 Sep, 2011 [facility] [place] [facility] [address] [id number] [place] [address] 18 Sep, 2011 [facility] [place] [facility] [address] [id number] [place] [address] 17 Feb, 2011 [facility] [place] [facility] [address] [id number] [facility] [place] [address] 14 Feb, 2011 [facility] [place] [facility] [address] [facility] [id number] [place] [address] 14 Feb, 2011 [facility] [place] [facility] [address] [id number] [place] [address] 12 Feb, 2011 [facility] [place] [facility] [address] [id number] [place] [address] 10 Feb, 2011 [facility] [place] [facility] [address] [id number] [place] [address] 31 Jan, 2012 [facility] [place] [facility] [address] [id number] [place] [address] 30 Jan, 2012 [facility] [place] [facility] [address] [id number] [place] [address] 22 Jan, 2012 [facility] [place] [facility] [address] [id number] [place] [address] 20 Jan, 2012 [facility] [place] [facility] [address] [id number] [place] [address] 17 Jan, 2012 [facility] [place] [facility] [address] [id number] [place] [address] 17 Jan, 2012 [facility] [place] [facility] [address] [id number] [place] [address] 17 Jan, 2012 [facility] [place] [facility] [address] [id number] [place] [address] 16 Jan, 2012 [facility] [place] [facility] [address] [id number] [place] [address] 13 Jan, 2012 [facility] [place] [facility] [address] [id number] [place] [address] Jan, [facility] [place] [facility] [address] [id number] [facility] [place] [address] Dec, [facility] [place] [facility] [address] [facility] [id number] [facility] [place] [address] Dec, [facility] [place] [facility] [address] [id number] [facility] [place] [address] Dec, [facility] [place] [facility] [address] [id number] [place] [address] Dec, [facility] [place] [facility] [address] [facility] [id number] [facility] [place] [address] Dec, [facility] [place] [facility] [address] [id number] [facility] [place] [address] Dec, [facility] [place] [facility] [address] [id number] [facility] [place] [address] 16 Dec, 2011 [facility] [place] [facility] [address] [id number] [facility] [place] [address] 14 Dec, 2011 [facility] [place] [facility] [address] [id number] [facility] [place] [address] Dec, [facility] [place] [facility] [address] [id number] [facility] [place] [address] Dec, [facility] [place] [facility] [address] [id number] [place] [address] Dec, [facility] [place] [facility] [address] [id number] [place] [address] Nov, [facility] [place] [facility] [address] [id number] [facility] [place] [address] Nov, [facility] [place] [facility] [address] [id number] [place] [address] Nov, [facility] [place] [facility] [address] [id number] [facility] [place] [address] Nov, [facility] [place] [facility] [address] [id number] [facility] [place] [address] Nov, [facility] [place] [facility] [address] [id number] [place] [address] Nov, [facility] [address] [id number] [place] [address] Nov, [facility] [address] [id number] [place] [address] Nov, [facility] [address] [id number] [place] [address] Nov, [facility] [address] [id number] [place] [address] Nov, [facility] [address] [id number] [place] [address] October, IMMUNIZATIONS No Known Immunizations SOCIAL HISTORY [...]
--- OUTSIDE RECORDS SUMMARY | 2019-11-15 09:41 | XMS REPORT ---
Author Author Maggy Ballesteros Doctor Organization [facility] Address Unknown Phone Unavailable Care Team Providers Care Sap Bw Consultant Name Role Phone Migration, Doctor Unavailable Unavailable PROBLEMS Type Condition ICD9-CM Code TZG70-EB Code Onset Dates Condition S tatus SNOMED Code Problem Elevated liver enzymes R74.8 Active 258538199 Problem Abnormal glucose R73.09 Active 102 850919 Problem Major depressive disorder, recurrent episode, moderate F33.1 Active 772296107 Problem Hyperlipidemia LDL goal <100 E78.5 A ctive 73647096 Problem Other chronic pain G89.29 Active 8 2900996 Problem Intractable chronic migraine without aura and wi th status migrainosus G43.711 Active 406272208 Problem Essential hypertension I10 Active 18624025 Problem Hypokalemia E87.6 Active 99832948 Problem Other chronic pain G89.29 Active 8 2676641 Problem 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 Active 66825078 Problem Primary insomnia F51.01 Active 397 2004 Problem Seizure disorder G40.909 Active 128 372940 Problem Moderate persistent asthma with exacerbation J45.4 1 Active 809498426 Problem Moderate persistent asthma without complication J4 5.40 Active 834509438 Problem Reflux gastritis K29.60 Active 729 44639 Problem Irritable bowel syndrome with constipation K58.1 Active 907032981 Problem Lumbago with sciatica, left side M54.42 Active 877164405 Problem Migraine with aura and without status migrainosu s, not intractable G43.109 Active 3004654 Problem Irritable bowel K58.9 Active 1074 3008 Problem History of hypokalemia Z86.39 Active 208508521 Problem Tremor, hereditary, benign G25.0 Act caitlin 080074227 Problem Chronic migraine without aura with statu s migrainosus, not intractable G43.701 Active 151675394 Problem Lumbago with sciatica, right side M54.41 Active [id number] Problem Mood disorder F39 Active 318514 05 Problem RLS (restless legs syndrome) G25.81 A ctive 73251430 Problem Aneurysm I72.9 Active 56010756 ALLERGIES No Information ENCOUNTERS Encounter Location Date Diagnosis [facility] [id number] [place] [address] 07 Aug, 2019 Influenza A J10.1 [place] [address] [address] Aug, [place] [address] [address] Aug, Tinea pedis of both feet B35.3 and Migra ine with aura and without status migrainosus, not intractable G43.109 [place] [address] [address] 21 Jul, 2019 [facility] [id number] [place] [address] 19 Jul, 2019 Rib pain on left side R07.81 [place] [address] [address] 10 Jul, 2019 Seizure disorder G40.909 and Aneurysm I7 2.9 [place] [address] [address] 07 Jul, 2019 [place] [address] [address] 06 Jul, 2019 Seizure disorder G40.909 ; Aneurysm I72. 9 ; Migraine with aura and without status migrainosus, not intractable G43.109 and History of hypokalemia Z86.39 [place] [address] [address] 04 Jul, 2019 [place] [address] [address] Jun, [place] [address] [address] Jun, Seizures R56.9 ; Migraine with aura and without status migrainosus, not intractable G43.109 ; Other chronic pain G89.29 and Pain in right shoulder M25.511 [facility] [address] [address] Jun, [place] [address] [address] May, Primary insomnia F51.01 ; Intractable ch ronic migraine without aura and with status migrainosus G43.711 and Aneurysm I72.9 [place] [address] [address] Apr, RLS (restless legs syndrome) G25.81 and Mood disorder F39 [place] [address] [address] Apr, [place] [address] [address] Mar, Other chronic pain G89.29 and Pain in ri ght shoulder M25.511 [place] [address] [address] Mar, Acute left ankle pain M25.572 [place] [address] [address] Mar, [place] [address] [address] Mar, Acute left ankle pain M25.572 [place] [address] [address] Mar, Major depressive disorder, recurrent epi sode, moderate F33.1 [place] [address] [address] Mar, Major depressive disorder, recurrent epi sode, moderate F33.1 ; Lumbago with sciatica, left side M54.42 and Lumbago with sciatica, right side M54.41 [place] [address] [address] Mar, [place] [address] [address] Mar, [place] [address] [address] Mar, Major depressive disorder, recurrent epi sode, moderate F33.1 ; Lumbago with sciatica, left side M54.42 and Lumbago with sciatica, right side M54.41 [place] [address] [address] Feb, Viral gastroenteritis A08.4 [facility] [place] [id number] [place] [address] Feb, Nausea and vomiting, intract ability of vomiting not specified, unspecified vomiting type R11.2 [place] [address] [address] Feb, [place] [address] [address] Feb, [place] [address] [address] Feb, C. difficile colitis A04.72 ; Mood disor dionicio F39 ; Lumbago with sciatica, left side M54.42 ; Lumbago with sciatica, right side M54.41 and Other chronic pain G89.29 [place] [address] [address] Jan, [facility] [place] [id number] [place] [address] Jan, Nausea & vomiting R11.2 [place] [address] [address] Dec, Irritable bowel syndrome with constipati on K58.1 ; Other chronic pain G89.29 and Pain in right shoulder M25.511 [facility] [place] [id number] [place] [address] Dec, Generalized abdominal pain R 10.84 and Nausea and vomiting, intractability of vomiting not specified, unspecified vomiting type R11.2 [facility] [id number] [place] [address] Dec, [facility] [address] [address] Dec, Dysuria R30.0 and Irritable bowel K58.9 [facility] [address] [id number] [place] [address] Sep, Chronic nausea R11.0 [place] [address] [address] Sep, [place] [address] [address] Sep, Viral gastroenteritis A08.4 [facility] [address] [address] Aug, Headache R51 ; Viral upper r espiratory tract infection J06.9 and Nausea R11.0 [facility] [address] [id number] [place] [address] Jun, Reflux gastritis K29.60 [place] [address] [address] Jun, [place] [address] [address] May, [place] [address] [address] May, [place] [address] [address] Apr, Bowel habit changes R19.4 and Acute cyst itis without hematuria N30.00 [place] [address] [address] Apr, Pain in right shoulder M25.511 [place] [address] [address] Apr, [place] [address] [address] Mar, [facility] [id number] [place] [address] Mar, [facility] [id number] [place] [address] Mar, [facility] [address] [address] Mar, [facility] [address] [address] 14 Feb, 2018 [facility] [address] [address] Feb, [facility] [address] [address] 05 Feb, 2018 [facility] [address] [address] Jan, [facility] [address] [address] Dec, [facility] [address] [address] Dec, Other chronic pain G89.29 ; Pain in righ t shoulder M25.511 and Liver enzyme elevation R74.8 [facility] [address] [address] Nov, Other chronic pain G89.29 and Pain in ri ght shoulder M25.511 [facility] [id number] [place] [address] October, [facility] [address] [facility] [id number] [address] [place] [address] October, Right shoulder pain, unspeci fied chronicity M25.511 [facility] [id number] [place] [address] Aug, Elevated liver enzymes R74.8 and Hyperli pidemia LDL goal <100 E78.5 [facility] [address] [address] Aug, [place] [address] [address] Jul, [place] [address] [place] [id number] Jul, Intractable chronic migraine without aur a and with status migrainosus G43.711 ; Fever, unspecified fever cause R50.9 and Elevated liver enzymes R74.8 [place] [address] [address] Jun, Difficulty urinating R39.198 and Moderat e persistent asthma with exacerbation J45.41 [place] [address] [address] Jun, [place] [address] [address] Jun, Moderate persistent asthma with exacerba tion J45.41 [place] [address] [address] May, Elevated liver enzymes R74.8 and Hyperli pidemia LDL goal <[address] [address] May, Elevated lipids E78.5 [place] [address] [address] Apr, Elevated liver enzymes R74.8 [place] [address] [address] Apr, Elevated liver enzymes R74.8 [place] [address] [address] Apr, Superior glenoid labrum lesion of right shoulder, subsequent encounter S43.431D [place] [address] [address] Apr, Hypokalemia E87.6 ; Major depressive dis order, recurrent episode, moderate F33.1 ; Other abnormalities of breathing R06.89 and Dyspnea, unspecified R06.00 [facility] [address] [facility] [id number] [address] [place] [address] Mar, Moderate persistent asthma w [facility] complication J45.40 [facility] [address] [address] Mar, Impingement syndrome of right shoulder M 75.41 [place] [address] [address] Jan, [place] [address] [address] Jan, Chronic migraine without aura with statu s migrainosus, not intractable G43.701 ; Essential hypertension I10 ; Irritable bowel K58.9 ; Primary insomnia F51.01 and Hypokalemia E87.6 [place] [address] [address] Dec, [place] [address] [address] Dec, Pain in right shoulder M25.511 [place] [address] [address] Dec, Essential hypertension I10 [place] [address] [address] Dec, [place] [address] [address] Nov, Essential hypertension I10 [place] [address] [address] 14 Nov, 2016 Pain in right shoulder M25.511 [place] [address] [address] Nov, Pain in right shoulder M25.511 [place] [address] [address] October, [place] [address] [address] October, Pain in right shoulder M25.511 [place] [address] [address] Sep, Arm pain, right M79.601 [place] [address] [address] Sep, [place] [address] [address] Sep, Abnormal glucose R73.09 and Elevated lip ids E78.5 [place] [address] [address] Sep, Abnormal glucose R73.09 and Elevated lip ids E78.5 [place] [address] [address] Aug, [place] [address] [address] Aug, [place] [address] [address] Aug, [place] [address] [address] Aug, 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 ; Hypokalemia E87.6 ; Irritable bowel K58.9 ; Essential hypertension I10 ; Pain in right shoulder M25.511 ; Seizure disorder G40.909 and Screening for lipid disorders Z13.220 [place] [address] [address] Jul, Other chronic pain G89.29 and Pain in ri ght shoulder M25.511 [place] [address] [address] 14 Jul, 2016 Biceps muscle strain, right, subsequent encounter S46.111D [facility] [address] [facility] [id number] [address] [place] [address] 08 Jul, 2016 Arm pain, right M79.601 [place] [address] [address] Jun, [place] [address] [address] Jun, Acute non-recurrent frontal sinusitis J0 1.10 [place] [address] [address] 14 May, 2016 Generalized abdominal pain R10.84 ; Urin rohan tract infection without hematuria, site unspecified N39.0 ; Hypokalemia E87.6 ; Essential hypertension I10 ; Screening for lipid disorders Z13.220 ; Seizure R56.9 and Low back pain M54.[address] [address] Apr, [facility] [place] [id number] [place] [address] Feb, [address] [address] Jan, [place] [address] [address] Dec, 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 ; Hypokalemia E87.6 ; Irritable bowel K58.9 and Nausea R11.0 [facility] [place] [address] [address] [id number] [place] [address] Dec, Generalized abdominal pain R 10.84 [place] [address] [address] 24 Nov, 2015 [facility] [place] [address] [place] [id number] [place] [address] Aug, Acute bronchitis J20.[address] [address] 14 Aug, [address] [address] 08 Aug, 2015 Low back pain M54.5 ; Hypokalemia E87.6 ; Chronic migraine without aura with status migrainosus, not intractable G43.701 ; Tremor, hereditary, benign G25.0 ; Irritable bowel K58.9 ; Essential hypertension I10 and Seizure R56.9 [place] [address] [address] Aug, [place] [address] [address] Jul, [place] [address] [address] Jul, Low back pain M54.5 ; Hypokalemia E87.6 ; Chronic migraine without aura with status migrainosus, not intractable G43.701 ; Tremor, hereditary, benign G25.0 ; Irritable bowel K58.9 ; Essential hypertension I10 and Seizure R56.9 [place] [address] [address] Jun, Hypokalemia E87.6 [place] [address] [address] Jun, ADD (attention deficit disorder) without hyperactivity F90.0 ; Generalized anxiety disorder F41.1 and Major depressive disorder, recurrent episode, moderate F33.1 [place] [address] [address] Jun, Low back pain M54.5 ; Hypokalemia E87.6 ; Chronic migraine without aura with status migrainosus, not intractable G43.701 ; Tremor, hereditary, benign G25.0 ; Irritable bowel K58.9 ; Essential hypertension I10 and Seizure R56.9 [place] [address] [address] Jun, [place] [address] [address] May, [place] [address] [address] May, Low back pain M54.5 ; Hypokalemia E87.6 ; Chronic migraine without aura with status migrainosus, not intractable G43.701 ; Tremor, hereditary, benign G25.0 ; Irritable bowel K58.9 ; Essential hypertension I10 ; Seizure R56.9 and Tinea capitis B35.0 [place] [address] [address] May, Low back pain M54.5 ; Hypokalemia E87.6 ; Chronic migraine without aura with status migrainosus, not intractable G43.701 ; Tremor, hereditary, benign G25.0 ; Irritable bowel K58.9 ; Essential hypertension I10 ; Seizure R56.9 ; Otitis media, left H66.92 and Dysuria 788.1 [place] [address] [address] May, Tooth pain K08.8 [place] [address] [address] May, [place] [address] [address] May, Low back pain M54.5 ; Hypokalemia E87.6 ; Chronic migraine without aura with status migrainosus, not intractable G43.701 ; Tremor, hereditary, benign G25.0 ; Irritable bowel K58.9 and Essential hypertension I10 [place] [address] [address] Apr, Low back pain M54.5 ; Hypokalemia E87.6 ; Chronic migraine without aura with status migrainosus, not intractable G43.701 ; Tremor, hereditary, benign G25.0 and Irritable bowel K58.9 [place] [address] [address] Apr, Low back pain M54.5 [place] [address] [address] Mar, [place] [address] [address] Mar, Irritable bowel syndrome with diarrhea K 58.0 [facility] [address] [address] Mar, [facility] [address] [address] Feb, [facility] [address] [address] Feb, [facility] [address] [address] Feb, Irritable bowel syndrome 564.1 ; Lumbago 724.2 and Cervical pain (neck) 723.1 [facility] [address] [address] Dec, Major depressive disorder, recurrent epi sode, moderate 296.32 and Generalized anxiety disorder 300.02 [facility] [address] [address] Nov, [facility] [address] [address] Nov, Major depressive disorder, recurrent epi sode, moderate 296.32 [facility] [address] [address] Nov, Constipation 564.00 ; Nausea & vomiting 787.01 and Abdominal pain 789.00 [facility] [address] [address] Nov, [facility] [address] [address] October, [facility] [address] [address] October, [facility] [address] [address] October, [facility] [address] [address] October, [facility] [address] [address] Sep, Dysuria 788.1 [facility] [address] [id number] [place] [address] Sep, [facility] [address] [id number] [place] [address] Sep, [facility] [address] [id number] [place] [address] 14 Sep, 2014 [facility] [address] [id number] [place] [address] Sep, [facility] [address] [id number] [place] [address] Aug, [facility] [address] [id number] [place] [address] Aug, [facility] [address] [id number] [place] [address] Aug, [facility] [address] [id number] [place] [address] Aug, [facility] [address] [id number] [place] [address] Aug, [facility] [address] [id number] [place] [address] Aug, [facility] [address] [id number] [place] [address] Aug, [facility] [address] [id number] [place] [address] Aug, [facility] [address] [id number] [place] [address] Aug, [facility] [address] [id number] [place] [address] Aug, [facility] [address] [id number] [place] [address] Jun, [facility] [address] [id number] [place] [address] Jun, [facility] [address] [id number] [place] [address] Jun, [facility] [address] [id number] [place] [address] Jun, [facility] [address] [id number] [place] [address] May, [facility] [address] [id number] [place] [address] May, [facility] [address] [id number] [place] [address] May, [facility] [address] [id number] [place] [address] May, [facility] [address] [id number] [place] [address] May, [facility] [address] [id number] [place] [address] May, [facility] [address] [id number] [place] [address] May, [facility] [address] [id number] [place] [address] May, [facility] [address] [id number] [place] [address] Mar, [facility] [address] [id number] [place] [address] Mar, [facility] [address] [id number] [place] [address] Mar, [facility] [address] [id number] [place] [address] 29 Mar, 2014 [facility] [address] [id number] [place] [address] Mar, [facility] [address] [id number] [place] [address] Mar, [facility] [address] [id number] [place] [address] Mar, [facility] [address] [facility] [id number] [place] [address] 14 Mar, 2014 [facility] [address] [id number] [place] [address] Mar, [facility] [address] [id number] [place] [address] Mar, [facility] [place] [facility] [address] [id number] [place] [address] Mar, [facility] [place] [facility] [address] [facility] [id number] [place] [address] Mar, [facility] [place] [facility] [address] [id number] [place] [address] Feb, [facility] [place] [facility] [address] [id number] [place] [address] Feb, [facility] [place] [facility] [address] [id number] [place] [address] Feb, [facility] [place] [facility] [address] [id number] [place] [address] Feb, [facility] [place] [facility] [address] [id number] [place] [address] Feb, [facility] [place] [facility] [address] [id number] [place] [address] Feb, [facility] [place] [facility] [address] [id number] [place] [address] Jan, [facility] [place] [facility] [address] [id number] [place] [address] Jan, [facility] [place] [facility] [address] [id number] [place] [address] Jan, [facility] [place] [facility] [address] [id number] [place] [address] Jan, [facility] [place] [facility] [address] [id number] [place] [address] Jan, [facility] [place] [facility] [address] [id number] [place] [address] Jan, [facility] [place] [facility] [address] [id number] [facility] [address] Jan, [facility] [place] [facility] [address] [facility] [id number] [place] [address] Jan, [facility] [place] [facility] [address] [facility] [id number] [facility] [place] [address] Dec, [facility] [place] [facility] [address] [id number] [place] [address] Dec, [facility] [place] [facility] [address] [id number] [facility] [place] [address] Dec, [facility] [place] [facility] [address] [id number] [place] [address] Dec, [facility] [place] [facility] [address] [id number] [facility] [place] [address] Dec, [facility] [place] [facility] [address] [id number] [facility] [place] [address] Dec, [facility] [place] [facility] [address] [facility] [id number] [facility] [place] [address] Dec, [facility] [place] [facility] [address] [facility] [id number] [facility] [place] [address] Dec, [facility] [place] [facility] [address] [id number] [place] [address] October, [facility] [place] [facility] [address] [id number] [place] [address] October, [facility] [place] [facility] [address] [facility] [id number] [facility] [place] [address] Sep, [facility] [place] [facility] [address] [id number] [place] [address] Sep, [facility] [place] [facility] [address] [facility] [id number] [place] [address] Sep, [facility] [place] [facility] [address] [id number] [place] [address] Sep, [facility] [place] [facility] [address] [id number] [place] [address] 10 Sep, 2013 [facility] [place] [facility] [address] [id number] [place] [address] Sep, [facility] [place] [facility] [address] [id number] [place] [address] Sep, [facility] [place] [facility] [address] [id number] [place] [address] Sep, [facility] [place] [facility] [address] [id number] [place] [address] Sep, [facility] [place] [facility] [address] [facility] [id number] [place] [address] Sep, [facility] [place] [facility] [address] [id number] [place] [address] Sep, [facility] [place] [facility] [address] [id number] [place] [address] Sep, [facility] [place] [facility] [address] [id number] [place] [address] Aug, [facility] [place] [facility] [address] [id number] [place] [address] Aug, [facility] [place] [facility] [address] [id number] [place] [address] Aug, [facility] [place] [facility] [address] [id number] [place] [address] Jun, [facility] [place] [facility] [address] [id number] [place] [address] Jun, [facility] [place] [facility] [address] [id number] [place] [address] Jun, [facility] [place] [facility] [address] [id number] [place] [address] Jun, [facility] [place] [facility] [address] [id number] [place] [address] Jun, [facility] [place] [facility] [address] [id number] [place] [address] Jun, [facility] [place] [facility] [address] [id number] [place] [address] Jun, [facility] [place] [facility] [address] [id number] [place] [address] Jun, [facility] [place] [facility] [address] [id number] [place] [address] Jun, [facility] [place] [facility] [address] [id number] [place] [address] Jun, [facility] [place] [facility] [address] [id number] [place] [address] May, [facility] [place] [facility] [address] [id number] [place] [address] May, [facility] [place] [facility] [address] [id number] [place] [address] May, [facility] [place] [facility] [id number] [place] [address] May, [facility] [place] [facility] [address] [id number] [place] [address] Apr, [facility] [place] [facility] [address] [id number] [place] [address] Apr, [facility] [place] [facility] [address] [id number] [place] [address] Apr, [facility] [place] [facility] [address] [id number] [place] [address] Apr, [facility] [place] [facility] [address] [id number] [place] [address] Apr, [facility] [place] [facility] [address] [id number] [place] [address] Apr, [facility] [place] [facility] [id number] [place] [address] Apr, [facility] [place] [facility] [address] [id number] [place] [address] Apr, [facility] [place] [facility] [address] [id number] [place] [address] Mar, [facility] [place] [facility] [address] [id number] [place] [address] Mar, [facility] [place] [facility] [address] [facility] [id number] [facility] [place] [address] Mar, [facility] [place] [facility] [address] [id number] [place] [address] Mar, [facility] [place] [facility] [address] [facility] [id number] [place] [address] Mar, [facility] [place] [facility] [address] [facility] [id number] [place] [address] Feb, [facility] [place] [facility] [address] [id number] [place] [address] Feb, [facility] [place] [facility] [address] [id number] [place] [address] Feb, [facility] [place] [facility] [address] [id number] [place] [address] Feb, [facility] [place] [facility] [address] [id number] [place] [address] Feb, [facility] [place] [facility] [address] [id number] [place] [address] Jan, [facility] [place] [facility] [address] [id number] [place] [address] Jan, [facility] [place] [facility] [address] [id number] [place] [address] Nov, [facility] [place] [facility] [address] [facility] [id number] [place] [address] Nov, [facility] [place] [facility] [address] [id number] [place] [address] Nov, [facility] [place] [facility] [address] [id number] [place] [address] Nov, [facility] [place] [facility] [address] [id number] [place] [address] October, [facility] [place] [facility] [address] [id number] [place] [address] Sep, [facility] [place] [facility] [address] [id number] [place] [address] Aug, [facility] [place] [facility] [address] [id number] [place] [address] Aug, [facility] [place] [facility] [address] [id number] [place] [address] Aug, [facility] [place] [facility] [address] [id number] [place] [address] Aug, [facility] [place] [facility] [address] [id number] [place] [address] Jul, [facility] [place] [facility] [address] [id number] [place] [address] Jun, [facility] [place] [facility] [address] [id number] [place] [address] Jun, [facility] [place] [facility] [address] [id number] [place] [address] May, [facility] [place] [facility] [address] [id number] [place] [address] May, [facility] [place] [facility] [address] [facility] [id number] [place] [id number] Mar, [facility] [place] [facility] [address] [id number] [place] [address] Mar, [facility] [place] [facility] [address] [id number] [place] [address] Mar, [facility] [place] [facility] [address] [id number] [place] [address] Mar, [facility] [place] [facility] [address] [id number] [place] [address] Mar, [facility] [place] [facility] [address] [id number] [place] [address] Mar, [facility] [place] [facility] [address] [id number] [place] [address] Mar, [facility] [place] [facility] [address] [facility] [id number] [place] [address] 23 Mar, 2011 [facility] [place] [facility] [address] [id number] [place] [address] 22 Mar, 2011 [facility] [place] [facility] [address] [id number] [place] [address] 20 Mar, 2011 [facility] [place] [facility] [address] [id number] [place] [address] 20 Mar, 2011 [facility] [place] [facility] [address] [id number] [place] [address] Mar, 2011 [facility] [place] [facility] [address] [id number] [place] [address] 17 Mar, 2011 [facility] [place] [facility] [address] [id number] [place] [address] 15 Mar, 2011 [facility] [place] [facility] [address] [id number] [place] [address] 15 Mar, 2011 [facility] [place] [facility] [address] [id number] [place] [address] 15 Mar, 2011 [facility] [place] [facility] [address] [id number] [place] [address] 15 Mar, 2011 [facility] [place] [facility] [address] [id number] [place] [address] Mar, 2011 [facility] [place] [facility] [address] [id number] [place] [address] Mar, 2011 [facility] [place] [facility] [address] [id number] [place] [address] 08 Mar, 2011 [facility] [place] [facility] [address] [id number] [place] [address] 08 Mar, 2011 [facility] [place] [facility] [address] [id number] [place] [address] Mar, [facility] [place] [facility] [address] [id number] [place] [address] Mar, [facility] [place] [facility] [address] [id number] [place] [address] 19 Sep, 2011 [facility] [place] [facility] [address] [id number] [facility] [place] [place] [address] 18 Sep, 2011 [facility] [place] [facility] [address] [facility] [id number] [facility] [place] [address] 17 Sep, 2011 [facility] [place] [facility] [address] [id number] [facility] [place] [address] 14 Sep, 2011 [facility] [place] [facility] [address] [id number] [facility] [place] [address] 14 Sep, 2011 [facility] [place] [facility] [address] [id number] [facility] [place] [address] 12 Feb, 2011 [facility] [place] [facility] [address] [id number] [facility] [place] [address] 10 Feb, 2011 [facility] [place] [facility] [address] [id number] [place] [address] 31 Jan, 2011 [facility] [place] [facility] [address] [id number] [facility] [place] [address] 30 Jan, 2011 [facility] [place] [facility] [address] [id number] [place] [address] 22 Jan, 2011 [facility] [place] [facility] [address] [id number] [place] [address] 20 Jan, 2011 [facility] [place] [facility] [address] [id number] [place] [address] 17 Jan, 2011 [facility] [place] [facility] [address] [id number] [place] [address] 17 Jan, 2011 [facility] [place] [facility] [address] [id number] [place] [address] 17 Jan, 2011 [facility] [place] [facility] [address] [id number] [place] [address] 16 Jan, 2011 [facility] [place] [facility] [address] [facility] [id number] [place] [address] 13 Jan, 2011 [facility] [place] [facility] [address] [id number] [place] [address] 07 Jan, 2011 [facility] [place] [facility] [address] [id number] [place] [address] 26 Dec, 2011 [facility] [place] [facility] [address] [id number] [facility] [place] [address] 24 Dec, 2011 [facility] [place] [facility] [address] [id number] [place] [address] Dec, [facility] [place] [facility] [address] [id number] [facility] [place] [address] 19 Dec, 2011 [facility] [place] [facility] [address] [id number] [place] [address] 18 Dec, 2011 [facility] [place] [facility] [address] [id number] [facility] [place] [address] 17 Dec, 2011 [facility] [place] [facility] [address] [id number] [place] [address] 16 Dec, 2011 [facility] [place] [facility] [address] [id number] [place] [address] 14 Dec, 2011 [facility] [place] [facility] [address] [id number] [place] [address] Dec, [facility] [place] [facility] [address] [id number] [place] [address] Dec, [facility] [place] [facility] [address] [id number] [place] [address] Dec, [facility] [place] [facility] [address] [id number] [place] [address] Nov, [facility] [place] [facility] [address] [id number] [place] [address] Nov, [facility] [place] [facility] [address] [id number] [place] [address] Nov, [facility] [place] [facility] [address] [id number] [place] [address] Nov, [facility] [place] [facility] [address] [id number] [place] [address] Nov, [facility] [place] [facility] [address] [id number] [place] [address] Nov, [facility] [address] [id number] [place] [address] Nov, [facility] [address] [id number] [place] [address] Nov, [facility] [address] [id number] [place] [address] Nov, [facility] [address] [id number] [place] [address] Nov, [facility] [address] [id number] [place] [address] October, IMMUNIZATIONS No Known Immunizations SOCIAL HISTORY [...]
--- OUTSIDE RECORDS SUMMARY | 2019-11-15 09:42 | XMS REPORT ---
Author Author Maggy Ballesteros Doctor Organization [facility] Address Unknown Phone Unavailable Care Team Providers Care Data Center Manager Name Role Phone Migration, Doctor Unavailable Unavailable PROBLEMS Type Condition ICD9-CM Code MZV71-AE Code Onset Dates Condition S tatus SNOMED Code Problem Elevated liver enzymes R74.8 Active 648815717 Problem Abnormal glucose R73.09 Active 102 430156 Problem Major depressive disorder, recurrent episode, moderate F33.1 Active 479626460 Problem Hyperlipidemia LDL goal <100 E78.5 A ctive 22312259 Problem Other chronic pain G89.29 Active 8 0921934 Problem Intractable chronic migraine without aura and wi th status migrainosus G43.711 Active 390624377 Problem Essential hypertension I10 Active 24529105 Problem Hypokalemia E87.6 Active 81911008 Problem Other chronic pain G89.29 Active 8 1291304 Problem 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 Active 25426986 Problem Primary insomnia F51.01 Active 397 2004 Problem Seizure disorder G40.909 Active 128 460220 Problem Moderate persistent asthma with exacerbation J45.4 1 Active 676440615 Problem Moderate persistent asthma without complication J4 5.40 Active 775311409 Problem Reflux gastritis K29.60 Active 729 49473 Problem Irritable bowel syndrome with constipation K58.1 Active 550215526 Problem Lumbago with sciatica, left side M54.42 Active 009370862 Problem Migraine with aura and without status migrainosu s, not intractable G43.109 Active 5759735 Problem Irritable bowel K58.9 Active 1074 3008 Problem History of hypokalemia Z86.39 Active 685988830 Problem Tremor, hereditary, benign G25.0 Act caitlin 132480842 Problem Chronic migraine without aura with statu s migrainosus, not intractable G43.701 Active 197462922 Problem Lumbago with sciatica, right side M54.41 Active 133231392938022 Problem Mood disorder F39 Active 620739 05 Problem RLS (restless legs syndrome) G25.81 A ctive 17717107 Problem Aneurysm I72.9 Active 63097547 ALLERGIES No Information ENCOUNTERS Encounter Location Date Diagnosis [facility] [address] [id number] [place] [address] 07 Aug, 2019 Influenza A J10.1 [place] [address] [address] Aug, [place] [address] [address] Aug, Tinea pedis of both feet B35.3 and Migra ine with aura and without status migrainosus, not intractable G43.109 [place] [address] [address] 21 Jul, 2019 [facility] [id number] [place] [address] 19 Jul, 2019 Rib pain on left side R07.81 [place] [address] [address] 10 Jul, 2019 Seizure disorder G40.909 and Aneurysm I7 2.9 [place] [address] [address] 07 Jul, 2019 [place] [address] [address] 06 Jul, 2019 Seizure disorder G40.909 ; Aneurysm I72. 9 ; Migraine with aura and without status migrainosus, not intractable G43.109 and History of hypokalemia Z86.39 [place] [address] [address] 04 Jul, 2019 [place] [address] [address] Jun, [place] [address] [address] Jun, Seizures R56.9 ; Migraine with aura and without status migrainosus, not intractable G43.109 ; Other chronic pain G89.29 and Pain in right shoulder M25.511 [facility] [address] [address] Jun, [place] [address] [address] May, Primary insomnia F51.01 ; Intractable ch ronic migraine without aura and with status migrainosus G43.711 and Aneurysm I72.9 [place] [address] [address] Apr, RLS (restless legs syndrome) G25.81 and Mood disorder F39 [place] [address] [address] Apr, [place] [address] [address] Mar, Other chronic pain G89.29 and Pain in ri ght shoulder M25.511 [place] [address] [address] Mar, Acute left ankle pain M25.572 [place] [address] [address] Mar, [place] [address] [address] Mar, Acute left ankle pain M25.572 [place] [address] [address] Mar, Major depressive disorder, recurrent epi sode, moderate F33.1 [place] [address] [address] Mar, Major depressive disorder, recurrent epi sode, moderate F33.1 ; Lumbago with sciatica, left side M54.42 and Lumbago with sciatica, right side M54.41 [place] [address] [address] Mar, [place] [address] [address] Mar, [place] [address] [address] Mar, Major depressive disorder, recurrent epi sode, moderate F33.1 ; Lumbago with sciatica, left side M54.42 and Lumbago with sciatica, right side M54.41 [place] [address] [address] Feb, Viral gastroenteritis A08.4 [facility] [place] [address] [place] [id number] [place] [address] Feb, Nausea and vomiting, intract ability of vomiting not specified, unspecified vomiting type R11.2 [place] [address] [address] Feb, [place] [address] [address] Feb, [place] [address] [address] Feb, C. difficile colitis A04.72 ; Mood disor dionicio F39 ; Lumbago with sciatica, left side M54.42 ; Lumbago with sciatica, right side M54.41 and Other chronic pain G89.29 [place] [address] [address] Jan, [facility] [place] [id number] [place] [address] Jan, Nausea & vomiting R11.2 [place] [address] [address] Dec, Irritable bowel syndrome with constipati on K58.1 ; Other chronic pain G89.29 and Pain in right shoulder M25.511 [facility] [place] [id number] [place] [address] Dec, Generalized abdominal pain R 10.84 and Nausea and vomiting, intractability of vomiting not specified, unspecified vomiting type R11.2 [facility] [id number] [place] [address] Dec, [facility] [address] [address] Dec, Dysuria R30.0 and Irritable bowel K58.9 [facility] [address] [facility] [place] [address] Sep, Chronic nausea R11.0 [place] [address] [address] Sep, [place] [address] [address] Sep, Viral gastroenteritis A08.4 [facility] [address] [address] Aug, Headache R51 ; Viral upper r espiratory tract infection J06.9 and Nausea R11.0 [facility] [address] [id number] [place] [address] Jun, Reflux gastritis K29.60 [place] [address] [address] Jun, [place] [address] [address] May, [place] [address] [address] May, [place] [address] [address] Apr, Bowel habit changes R19.4 and Acute cyst itis without hematuria N30.00 [place] [address] [address] Apr, Pain in right shoulder M25.511 [place] [address] [address] Apr, [place] [address] [address] Mar, [facility] [id number] [place] [address] Mar, [facility] [id number] [place] [address] Mar, [facility] [address] [address] Mar, [facility] [address] [address] 14 Feb, 2018 [facility] [address] [address] Feb, [facility] [address] [address] 05 Feb, 2018 [facility] [address] [address] Jan, [facility] [address] [address] Dec, [facility] [address] [address] Dec, Other chronic pain G89.29 ; Pain in righ t shoulder M25.511 and Liver enzyme elevation R74.8 [facility] [address] [address] Nov, Other chronic pain G89.29 and Pain in ri ght shoulder M25.511 [facility] [id number] [place] [address] October, [facility] [address] [facility] [id number] [address] [place] [address] October, Right shoulder pain, unspeci fied chronicity M25.511 [facility] [id number] [place] [address] Aug, Elevated liver enzymes R74.8 and Hyperli pidemia LDL goal <100 E78.5 [facility] [address] [address] Aug, [place] [address] [address] Jul, [place] [address] [place] [id number] Jul, Intractable chronic migraine without aur a and with status migrainosus G43.711 ; Fever, unspecified fever cause R50.9 and Elevated liver enzymes R74.8 [place] [address] [address] Jun, Difficulty urinating R39.198 and Moderat e persistent asthma with exacerbation J45.41 [place] [address] [address] Jun, [place] [address] [address] Jun, Moderate persistent asthma with exacerba tion J45.41 [place] [address] [address] May, Elevated liver enzymes R74.8 and Hyperli pidemia LDL goal <[address] [address] May, Elevated lipids E78.5 [place] [address] [address] Apr, Elevated liver enzymes R74.8 [place] [address] [address] Apr, Elevated liver enzymes R74.8 [place] [address] [address] Apr, Superior glenoid labrum lesion of right shoulder, subsequent encounter S43.431D [place] [address] [address] Apr, Hypokalemia E87.6 ; Major depressive dis order, recurrent episode, moderate F33.1 ; Other abnormalities of breathing R06.89 and Dyspnea, unspecified R06.00 [facility] [address] [facility] [id number] [address] [place] [address] Mar, Moderate persistent asthma w [facility] complication J45.40 [facility] [address] [address] Mar, Impingement syndrome of right shoulder M 75.41 [place] [address] [address] Jan, [place] [address] [address] Jan, Chronic migraine without aura with statu s migrainosus, not intractable G43.701 ; Essential hypertension I10 ; Irritable bowel K58.9 ; Primary insomnia F51.01 and Hypokalemia E87.6 [place] [address] [address] Dec, [place] [address] [address] Dec, Pain in right shoulder M25.511 [place] [address] [address] Dec, Essential hypertension I10 [place] [address] [address] Dec, [place] [address] [address] Nov, Essential hypertension I10 [place] [address] [address] 14 Nov, 2016 Pain in right shoulder M25.511 [place] [address] [address] Nov, Pain in right shoulder M25.511 [place] [address] [address] October, [place] [address] [address] October, Pain in right shoulder M25.511 [place] [address] [address] Sep, Arm pain, right M79.601 [place] [address] [address] Sep, [place] [address] [address] Sep, Abnormal glucose R73.09 and Elevated lip ids E78.5 [place] [address] [address] Sep, Abnormal glucose R73.09 and Elevated lip ids E78.5 [place] [address] [address] Aug, [place] [address] [address] Aug, [place] [address] [address] Aug, [place] [address] [address] Aug, 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 ; Hypokalemia E87.6 ; Irritable bowel K58.9 ; Essential hypertension I10 ; Pain in right shoulder M25.511 ; Seizure disorder G40.909 and Screening for lipid disorders Z13.220 [place] [address] [address] Jul, Other chronic pain G89.29 and Pain in ri ght shoulder M25.511 [place] [address] [address] 14 Jul, 2016 Biceps muscle strain, right, subsequent encounter S46.111D [facility] [address] [facility] [id number] [address] [place] [address] 08 Jul, 2016 Arm pain, right M79.601 [place] [address] [address] Jun, [place] [address] [address] Jun, Acute non-recurrent frontal sinusitis J0 1.10 [place] [address] [address] 14 May, 2016 Generalized abdominal pain R10.84 ; Urin rohan tract infection without hematuria, site unspecified N39.0 ; Hypokalemia E87.6 ; Essential hypertension I10 ; Screening for lipid disorders Z13.220 ; Seizure R56.9 and Low back pain M54.[address] [address] Apr, [facility] [place] [address] [id number] [place] [address] Feb, [address] [address] Jan, [place] [address] [address] Dec, 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 ; Hypokalemia E87.6 ; Irritable bowel K58.9 and Nausea R11.0 [facility] [place] [address] [place] [id number] [place] [address] Dec, Generalized abdominal pain R 10.84 [place] [address] [address] 24 Nov, 2015 [facility] [place] [address] [place] [id number] [place] [address] Aug, Acute bronchitis J20.[address] [address] 14 Aug, [address] [address] 08 Aug, 2015 Low back pain M54.5 ; Hypokalemia E87.6 ; Chronic migraine without aura with status migrainosus, not intractable G43.701 ; Tremor, hereditary, benign G25.0 ; Irritable bowel K58.9 ; Essential hypertension I10 and Seizure R56.9 [place] [address] [address] Aug, [place] [address] [address] Jul, [place] [address] [address] Jul, Low back pain M54.5 ; Hypokalemia E87.6 ; Chronic migraine without aura with status migrainosus, not intractable G43.701 ; Tremor, hereditary, benign G25.0 ; Irritable bowel K58.9 ; Essential hypertension I10 and Seizure R56.9 [place] [address] [address] Jun, Hypokalemia E87.6 [place] [address] [address] Jun, ADD (attention deficit disorder) without hyperactivity F90.0 ; Generalized anxiety disorder F41.1 and Major depressive disorder, recurrent episode, moderate F33.1 [place] [address] [address] Jun, Low back pain M54.5 ; Hypokalemia E87.6 ; Chronic migraine without aura with status migrainosus, not intractable G43.701 ; Tremor, hereditary, benign G25.0 ; Irritable bowel K58.9 ; Essential hypertension I10 and Seizure R56.9 [place] [address] [address] Jun, [place] [address] [address] May, [place] [address] [address] May, Low back pain M54.5 ; Hypokalemia E87.6 ; Chronic migraine without aura with status migrainosus, not intractable G43.701 ; Tremor, hereditary, benign G25.0 ; Irritable bowel K58.9 ; Essential hypertension I10 ; Seizure R56.9 and Tinea capitis B35.0 [place] [address] [address] May, Low back pain M54.5 ; Hypokalemia E87.6 ; Chronic migraine without aura with status migrainosus, not intractable G43.701 ; Tremor, hereditary, benign G25.0 ; Irritable bowel K58.9 ; Essential hypertension I10 ; Seizure R56.9 ; Otitis media, left H66.92 and Dysuria 788.1 [place] [address] [address] May, Tooth pain K08.8 [place] [address] [address] May, [place] [address] [address] May, Low back pain M54.5 ; Hypokalemia E87.6 ; Chronic migraine without aura with status migrainosus, not intractable G43.701 ; Tremor, hereditary, benign G25.0 ; Irritable bowel K58.9 and Essential hypertension I10 [place] [address] [address] Apr, Low back pain M54.5 ; Hypokalemia E87.6 ; Chronic migraine without aura with status migrainosus, not intractable G43.701 ; Tremor, hereditary, benign G25.0 and Irritable bowel K58.9 [place] [address] [address] Apr, Low back pain M54.5 [place] [address] [address] Mar, [place] [address] [address] Mar, Irritable bowel syndrome with diarrhea K 58.0 [facility] [address] [address] Mar, [facility] [address] [address] Feb, [facility] [address] [address] Feb, [facility] [address] [address] Feb, Irritable bowel syndrome 564.1 ; Lumbago 724.2 and Cervical pain (neck) 723.1 [facility] [address] [address] Dec, Major depressive disorder, recurrent epi sode, moderate 296.32 and Generalized anxiety disorder 300.02 [facility] [address] [address] Nov, [facility] [address] [address] Nov, Major depressive disorder, recurrent epi sode, moderate 296.32 [facility] [address] [address] Nov, Constipation 564.00 ; Nausea & vomiting 787.01 and Abdominal pain 789.00 [facility] [address] [address] Nov, [facility] [address] [address] October, [facility] [address] [address] October, [facility] [address] [address] October, [facility] [address] [address] October, [facility] [address] [address] Sep, Dysuria 788.1 [facility] [address] [id number] [place] [address] Sep, [facility] [address] [id number] [place] [address] Sep, [facility] [address] [id number] [place] [address] 14 Sep, 2014 [facility] [address] [id number] [place] [address] Sep, [facility] [address] [id number] [place] [address] Aug, [facility] [address] [id number] [place] [address] Aug, [facility] [address] [id number] [place] [address] Aug, [facility] [address] [id number] [place] [address] Aug, [facility] [address] [id number] [place] [address] Aug, [facility] [address] [id number] [place] [address] Aug, [facility] [address] [id number] [place] [address] Aug, [facility] [address] [id number] [place] [address] Aug, [facility] [address] [id number] [place] [address] Aug, [facility] [address] [id number] [place] [address] Aug, [facility] [address] [id number] [place] [address] Jun, [facility] [address] [id number] [place] [address] Jun, [facility] [address] [id number] [place] [address] Jun, [facility] [address] [id number] [place] [address] Jun, [facility] [address] [id number] [place] [address] May, [facility] [address] [id number] [place] [address] May, [facility] [address] [id number] [place] [address] May, [facility] [address] [id number] [place] [address] May, [facility] [address] [id number] [place] [address] May, [facility] [address] [id number] [place] [address] May, [facility] [address] [id number] [place] [address] May, [facility] [address] [id number] [place] [address] May, [facility] [address] [id number] [place] [address] Mar, [facility] [address] [id number] [place] [address] Mar, [facility] [address] [id number] [place] [address] Mar, [facility] [address] [id number] [place] [address] 29 Mar, 2014 [facility] [address] [place] [id number] [place] [address] Mar, [facility] [address] [id number] [place] [address] Mar, [facility] [address] [id number] [place] [address] Mar, [facility] [address] [facility] [id number] [place] [address] 14 Mar, 2014 [facility] [address] [id number] [place] [address] Mar, [facility] [address] [id number] [place] [address] Mar, [facility] [address] [id number] [place] [address] Mar, [facility] [address] [facility] [id number] [place] [address] Mar, [facility] [address] [id number] [place] [address] Feb, [facility] [address] [id number] [place] [address] Feb, [facility] [address] [id number] [place] [address] Feb, [facility] [address] [id number] [place] [address] Feb, [facility] [address] [id number] [place] [address] Feb, [facility] [address] [id number] [place] [address] Feb, [facility] [address] [id number] [place] [address] Jan, [facility] [address] [id number] [place] [address] Jan, [facility] [address] [id number] [place] [address] Jan, [facility] [place] [facility] [address] [id number] [place] [address] Jan, [facility] [place] [facility] [address] [id number] [place] [address] Jan, [facility] [place] [facility] [address] [id number] [place] [address] Jan, [facility] [place] [facility] [address] [id number] [facility] [place] [address] Jan, [facility] [place] [facility] [address] [facility] [id number] [place] [address] Jan, [facility] [place] [facility] [address] [facility] [id number] [facility] [place] [address] Dec, [facility] [place] [facility] [address] [id number] [place] [address] Dec, [facility] [place] [facility] [address] [id number] [facility] [place] [address] Dec, [facility] [place] [facility] [address] [id number] [place] [address] Dec, [facility] [place] [facility] [address] [id number] [facility] [place] [address] Dec, [facility] [place] [facility] [address] [id number] [facility] [place] [address] Dec, [facility] [place] [facility] [address] [facility] [id number] [facility] [place] [address] Dec, [facility] [place] [facility] [address] [id number] [place] [place] [address] Dec, [facility] [place] [facility] [address] [id number] [place] [address] October, [facility] [place] [facility] [address] [id number] [place] [address] October, [facility] [place] [facility] [address] [facility] [id number] [facility] [place] [address] Sep, [facility] [place] [facility] [address] [id number] [place] [address] Sep, [facility] [place] [facility] [address] [facility] [id number] [place] [address] Sep, [facility] [place] [facility] [address] [id number] [place] [address] Sep, [facility] [place] [facility] [address] [id number] [place] [address] 10 Sep, 2013 [facility] [place] [facility] [address] [id number] [place] [address] Sep, [facility] [place] [facility] [address] [id number] [place] [address] Sep, [facility] [place] [facility] [address] [id number] [place] [address] Sep, [facility] [place] [facility] [address] [id number] [place] [address] Sep, [facility] [place] [facility] [address] [facility] [id number] [place] [address] Sep, [facility] [place] [facility] [address] [id number] [place] [address] Sep, [facility] [place] [facility] [address] [id number] [place] [address] Sep, [facility] [place] [facility] [address] [id number] [place] [address] Aug, [facility] [place] [facility] [address] [id number] [place] [address] Aug, [facility] [place] [facility] [address] [id number] [place] [address] Aug, [facility] [place] [facility] [address] [id number] [place] [address] Jun, [facility] [place] [facility] [address] [id number] [place] [address] Jun, [facility] [place] [facility] [address] [id number] [place] [address] Jun, [facility] [place] [facility] [address] [id number] [place] [address] Jun, [facility] [place] [facility] [address] [id number] [place] [address] Jun, [facility] [place] [facility] [address] [id number] [place] [address] Jun, [facility] [place] [facility] [address] [id number] [place] [address] Jun, [facility] [place] [facility] [address] [id number] [place] [address] Jun, [facility] [place] [facility] [address] [id number] [place] [address] Jun, [facility] [place] [facility] [address] [id number] [place] [address] Jun, [facility] [place] [facility] [address] [id number] [place] [address] May, [facility] [place] [facility] [address] [id number] [place] [address] May, [facility] [place] [facility] [address] [id number] [place] [address] May, [facility] [place] [facility] [id number] [place] [address] May, [facility] [place] [facility] [address] [id number] [place] [address] Apr, [facility] [place] [facility] [address] [id number] [place] [address] Apr, [facility] [place] [facility] [address] [id number] [place] [address] Apr, [facility] [place] [address] [id number] [place] [address] Apr, [facility] [place] [facility] [address] [id number] [place] [address] Apr, [facility] [place] [address] [id number] [place] [address] Apr, [facility] [place] [facility] [id number] [place] [address] Apr, [facility] [place] [facility] [address] [id number] [place] [address] Apr, [facility] [place] [facility] [address] [id number] [place] [address] Mar, [facility] [place] [facility] [address] [id number] [place] [address] Mar, [facility] [place] [facility] [address] [facility] [id number] [facility] [place] [address] Mar, [facility] [place] [facility] [address] [id number] [place] [address] Mar, [facility] [place] [facility] [address] [facility] [id number] [place] [address] Mar, [facility] [place] [facility] [address] [facility] [id number] [place] [address] Feb, [facility] [place] [facility] [address] [id number] [place] [address] Feb, [facility] [place] [facility] [address] [id number] [place] [address] Feb, [facility] [place] [facility] [address] [id number] [place] [address] Feb, [facility] [place] [facility] [address] [id number] [place] [address] Feb, [facility] [place] [facility] [address] [id number] [place] [address] Jan, [facility] [place] [facility] [address] [id number] [place] [address] Jan, [facility] [place] [facility] [address] [id number] [place] [address] Nov, [facility] [place] [facility] [address] [facility] [id number] [place] [address] Nov, [facility] [place] [facility] [address] [id number] [place] [address] Nov, [facility] [place] [facility] [address] [id number] [place] [address] Nov, [facility] [place] [facility] [address] [id number] [place] [address] October, [facility] [place] [facility] [address] [id number] [place] [address] Sep, [facility] [place] [facility] [address] [id number] [place] [address] Aug, [facility] [place] [facility] [address] [id number] [place] [address] Aug, [facility] [place] [facility] [address] [id number] [place] [address] Aug, [facility] [place] [facility] [address] [id number] [place] [address] Aug, [facility] [place] [facility] [address] [id number] [place] [address] Jul, [facility] [place] [facility] [address] [id number] [place] [address] Jun, [facility] [place] [facility] [address] [id number] [place] [address] Jun, [facility] [place] [facility] [address] [id number] [place] [address] May, [facility] [place] [facility] [address] [id number] [place] [address] May, [facility] [facility] [address] [facility] [id number] [place] [id number] Mar, [facility] [place] [facility] [address] [id number] [place] [address] Mar, [facility] [place] [facility] [address] [id number] [place] [address] Mar, [facility] [place] [facility] [address] [id number] [place] [address] Mar, [facility] [place] [facility] [address] [id number] [place] [address] Mar, [facility] [place] [facility] [address] [id number] [place] [address] Mar, [facility] [place] [facility] [address] [id number] [place] [address] Mar, [facility] [place] [facility] [address] [facility] [id number] [place] [address] 23 Mar, 2011 [facility] [place] [facility] [address] [id number] [place] [address] 22 Mar, 2011 [facility] [place] [facility] [address] [id number] [place] [address] 20 Mar, 2011 [facility] [place] [facility] [address] [id number] [place] [address] 20 Mar, 2011 [facility] [place] [facility] [address] [id number] [place] [address] Mar, 2011 [facility] [place] [facility] [address] [id number] [place] [address] 17 Mar, 2011 [facility] [place] [facility] [address] [id number] [place] [address] 15 Mar, 2011 [facility] [place] [facility] [address] [id number] [place] [address] 15 Mar, 2011 [facility] [place] [facility] [address] [id number] [place] [address] 15 Mar, 2011 [facility] [place] [facility] [address] [id number] [place] [address] 15 Mar, 2011 [facility] [place] [facility] [address] [id number] [place] [address] Mar, 2011 [facility] [place] [facility] [address] [id number] [place] [address] Mar, 2011 [facility] [place] [facility] [address] [id number] [place] [address] 08 Mar, 2011 [facility] [place] [facility] [address] [id number] [place] [address] 08 Mar, 2011 [facility] [place] [facility] [address] [id number] [place] [address] Mar, [facility] [place] [facility] [address] [id number] [place] [address] Mar, [facility] [place] [facility] [address] [id number] [place] [address] 19 Sep, 2011 [facility] [place] [facility] [address] [id number] [place] [address] 18 Sep, 2011 [facility] [place] [facility] [address] [facility] [id number] [place] [address] 17 Sep, 2011 [facility] [place] [facility] [address] [id number] [place] [address] 14 Sep, 2011 [facility] [place] [facility] [address] [id number] [place] [address] 14 Sep, 2011 [facility] [place] [facility] [address] [id number] [place] [address] 12 Feb, 2011 [facility] [place] [facility] [address] [id number] [place] [address] 10 Feb, 2011 [facility] [place] [facility] [address] [id number] [place] [address] 31 Jan, 2011 [facility] [place] [facility] [address] [id number] [place] [address] 30 Jan, 2011 [facility] [place] [facility] [address] [id number] [place] [address] 22 Jan, 2011 [facility] [place] [facility] [address] [id number] [place] [address] 20 Jan, 2011 [facility] [place] [facility] [address] [id number] [place] [address] 17 Jan, 2011 [facility] [place] [facility] [address] [id number] [place] [address] 17 Jan, 2011 [facility] [place] [facility] [address] [id number] [place] [address] 17 Jan, 2011 [facility] [place] [facility] [address] [id number] [place] [address] 16 Jan, 2011 [facility] [place] [facility] [address] [facility] [id number] [place] [address] 13 Jan, 2011 [facility] [place] [facility] [address] [id number] [place] [address] 07 Jan, 2011 [facility] [place] [facility] [address] [id number] [place] [address] 26 Dec, 2011 [facility] [place] [facility] [address] [id number] [place] [address] 24 Dec, 2011 [facility] [place] [facility] [address] [id number] [place] [address] Dec, [facility] [place] [facility] [address] [id number] [place] [address] 19 Dec, 2011 [facility] [place] [facility] [address] [id number] [place] [address] 18 Dec, 2011 [facility] [place] [facility] [address] [id number] [place] [address] 17 Dec, 2011 [facility] [place] [facility] [address] [id number] [place] [address] 16 Dec, 2011 [facility] [place] [facility] [address] [id number] [place] [address] 14 Dec, 2011 [facility] [place] [facility] [address] [id number] [place] [address] Dec, [facility] [place] [facility] [address] [id number] [place] [address] Dec, [facility] [place] [facility] [address] [id number] [place] [address] Dec, [facility] [place] [facility] [address] [id number] [place] [address] Nov, [facility] [place] [facility] [address] [id number] [place] [address] Nov, [facility] [place] [facility] [address] [id number] [place] [address] Nov, [facility] [place] [facility] [address] [id number] [place] [address] Nov, [facility] [place] [facility] [address] [id number] [place] [address] Nov, [facility] [place] [facility] [address] [id number] [place] [address] Nov, [facility] [address] [id number] [place] [address] Nov, [facility] [address] [id number] [place] [address] Nov, [facility] [address] [id number] [place] [address] Nov, [facility] [address] [id number] [place] [address] Nov, [facility] [address] [id number] [place] [address] October, IMMUNIZATIONS No Known Immunizations SOCIAL HISTORY [...]
--- OUTSIDE RECORDS SUMMARY | 2019-11-15 09:42 | XMS REPORT ---
Author Author Maggy Ballesteros Doctor Organization [facility] Address Unknown Phone Unavailable Care Team Providers Care Integrated Pest Management Technician Name Role Phone Migration, Doctor Unavailable Unavailable PROBLEMS Type Condition ICD9-CM Code STU47-NC Code Onset Dates Condition S tatus SNOMED Code Problem Elevated liver enzymes R74.8 Active 424439901 Problem Abnormal glucose R73.09 Active 102 435140 Problem Major depressive disorder, recurrent episode, moderate F33.1 Active 543488565 Problem Hyperlipidemia LDL goal <100 E78.5 A ctive 35701935 Problem Other chronic pain G89.29 Active 8 2207823 Problem Intractable chronic migraine without aura and wi th status migrainosus G43.711 Active 498310851 Problem Essential hypertension I10 Active 11548114 Problem Hypokalemia E87.6 Active 24638785 Problem Other chronic pain G89.29 Active 8 1657313 Problem 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 Active 66290821 Problem Primary insomnia F51.01 Active 397 2004 Problem Seizure disorder G40.909 Active 128 714744 Problem Moderate persistent asthma with exacerbation J45.4 1 Active 997067374 Problem Moderate persistent asthma without complication J4 5.40 Active 719494509 Problem Reflux gastritis K29.60 Active 729 86152 Problem Irritable bowel syndrome with constipation K58.1 Active 187718525 Problem Lumbago with sciatica, left side M54.42 Active 604939174 Problem Migraine with aura and without status migrainosu s, not intractable G43.109 Active 9660421 Problem Irritable bowel K58.9 Active 1074 3008 Problem History of hypokalemia Z86.39 Active 451376974 Problem Tremor, hereditary, benign G25.0 Act caitlin 226560116 Problem Chronic migraine without aura with statu s migrainosus, not intractable G43.701 Active 606702661 Problem Lumbago with sciatica, right side M54.41 Active 158823285245615 Problem Mood disorder F39 Active 349235 05 Problem RLS (restless legs syndrome) G25.81 A ctive 92985196 Problem Aneurysm I72.9 Active 85756807 ALLERGIES No Information ENCOUNTERS Encounter Location Date Diagnosis [place] [address] [address] Aug, [facility] [address] [address] Jul, [facility] [address] [facility] [id number] [address] [place] [address] 19 Jul, 2019 Rib pain on left side R07.81 [place] [address] [address] 10 Jul, 2019 Seizure disorder G40.909 and Aneurysm I7 2.9 [facility] [address] [address] 07 Jul, 2019 [place] [address] [address] 06 Jul, 2019 Seizure disorder G40.909 ; Aneurysm I72. 9 ; Migraine with aura and without status migrainosus, not intractable G43.109 and History of hypokalemia Z86.39 [place] [address] [address] 04 Jul, 2019 [place] [address] [address] Jun, [place] [address] [address] Jun, Seizures R56.9 ; Migraine with aura and without status migrainosus, not intractable G43.109 ; Other chronic pain G89.29 and Pain in right shoulder M25.511 [place] [address] [address] Jun, [place] [address] [address] May, Primary insomnia F51.01 ; Intractable ch ronic migraine without aura and with status migrainosus G43.711 and Aneurysm I72.9 [place] [address] [address] Apr, RLS (restless legs syndrome) G25.81 and Mood disorder F39 [place] [address] [address] Apr, [place] [address] [address] Mar, Other chronic pain G89.29 and Pain in ri ght shoulder M25.511 [place] [address] [address] Mar, Acute left ankle pain M25.572 [place] [address] [address] Mar, [place] [address] [address] Mar, Acute left ankle pain M25.572 [place] [address] [address] Mar, Major depressive disorder, recurrent epi sode, moderate F33.1 [place] [address] [address] Mar, Major depressive disorder, recurrent epi sode, moderate F33.1 ; Lumbago with sciatica, left side M54.42 and Lumbago with sciatica, right side M54.41 [place] [address] [address] Mar, [place] [address] [address] Mar, [place] [address] [address] Mar, Major depressive disorder, recurrent epi sode, moderate F33.1 ; Lumbago with sciatica, left side M54.42 and Lumbago with sciatica, right side M54.41 [place] [address] [place] [address] Feb, Viral gastroenteritis A08.4 [facility] [place] [address] [address] [place] [id number] [address] [place] [address] Feb, Nausea and vomiting, intract ability of vomiting not specified, unspecified vomiting type R11.2 [place] [address] [place] [id number] [place] [address] Feb, [place] [address] [address] Feb, [place] [address] [address] Feb, C. difficile colitis A04.72 ; Mood disor dionicio F39 ; Lumbago with sciatica, left side M54.42 ; Lumbago with sciatica, right side M54.41 and Other chronic pain G89.29 [place] [address] [address] Jan, [facility] [place] [address] [address] [place] [id number] [place] [address] Jan, Nausea & vomiting R11.2 [place] [address] [address] Dec, Irritable bowel syndrome with constipati on K58.1 ; Other chronic pain G89.29 and Pain in right shoulder M25.511 [facility] [place] [address] [place] [address] Dec, Generalized abdominal pain R 10.84 and Nausea and vomiting, intractability of vomiting not specified, unspecified vomiting type R11.2 [facility] [place] [address] [address] [place] [id number] [place] [address] Dec, [facility] [address] [place] [id number] [place] [address] Dec, Dysuria R30.0 and Irritable bowel K58.9 [facility] [address] [place] [id number] [address] Sep, Chronic nausea R11.0 [facility] [address] [address] Sep, [facility] [address] [address] Sep, Viral gastroenteritis A08.4 [facility] [address] [facility] [id number] [address] [address] Aug, Headache R51 ; Viral upper r espiratory tract infection J06.9 and Nausea R11.0 [facility] [address] [facility] [id number] [place] [address] Jun, Reflux gastritis K29.60 [facility] [address] [address] Jun, [facility] [address] [address] May, [facility] [address] [address] May, [place] [address] [address] Apr, Bowel habit changes R19.4 and Acute cyst itis without hematuria N30.00 [place] [address] [address] Apr, Pain in right shoulder M25.511 [place] [address] [address] Apr, [facility] [address] [address] Mar, [facility] [address] [address] Mar, [facility] [address] [address] Mar, [facility] [address] [address] Mar, [facility] [address] [place] [id number] [place] [address] 14 Feb, 2018 [facility] [address] [address] 10 Feb, 2018 [facility] [address] [place] [id number] [place] [address] Feb, [facility] [address] [address] Jan, [facility] [address] [address] Dec, [facility] [address] [address] Dec, Other chronic pain G89.29 ; Pain in righ t shoulder M25.511 and Liver enzyme elevation R74.8 [place] [address] [address] Nov, Other chronic pain G89.29 and Pain in ri ght shoulder M25.511 [facility] [address] [place] [id number] [place] [address] October, [facility] [address] [facility] [id number] [address] [place] [address] October, Right shoulder pain, unspeci fied chronicity M25.511 [facility] [address] [place] [id number] [place] [address] Aug, Elevated liver enzymes R74.8 and Hyperli pidemia LDL goal <100 E78.5 [facility] [address] [id number] [place] [address] Aug, [facility] [address] [address] Jul, [facility] [address] [address] Jul, Intractable chronic migraine without aur a and with status migrainosus G43.711 ; Fever, unspecified fever cause R50.9 and Elevated liver enzymes R74.8 [place] [address] [address] Jun, Difficulty urinating R39.198 and Moderat e persistent asthma with exacerbation J45.41 [place] [address] [address] Jun, [place] [address] [address] Jun, Moderate persistent asthma with exacerba tion J45.41 [place] [address] [address] May, Elevated liver enzymes R74.8 and Hyperli pidemia LDL goal <100 E78.5 [place] [address] [address] May, Elevated lipids E78.5 [place] [address] [address] Apr, Elevated liver enzymes R74.8 [place] [address] [address] Apr, Elevated liver enzymes R74.8 [place] [address] [address] Apr, Superior glenoid labrum lesion of right shoulder, subsequent encounter S43.431D [place] [address] [address] Apr, Hypokalemia E87.6 ; Major depressive dis order, recurrent episode, moderate F33.1 ; Other abnormalities of breathing R06.89 and Dyspnea, unspecified R06.00 [facility] [address] [facility] [id number] [address] [place] [address] Mar, Moderate persistent asthma w ithout complication J45.40 [facility] [address] [address] Mar, Impingement syndrome of right shoulder M 75.41 [place] [address] [address] Jan, [place] [address] [address] Jan, Chronic migraine without aura with statu s migrainosus, not intractable G43.701 ; Essential hypertension I10 ; Irritable bowel K58.9 ; Primary insomnia F51.01 and Hypokalemia E87.6 [place] [address] [address] Dec, [place] [address] [address] Dec, Pain in right shoulder M25.511 [place] [address] [address] Dec, Essential hypertension I10 [place] [address] [address] Dec, [place] [address] [address] Nov, Essential hypertension I10 [place] [address] [address] Nov, Pain in right shoulder M25.511 [place] [address] [address] Nov, Pain in right shoulder M25.511 [place] [address] [address] October, [place] [address] [address] October, Pain in right shoulder M25.511 [place] [address] [address] Sep, Arm pain, right M79.601 [place] [address] [address] Sep, [place] [address] [address] Sep, Abnormal glucose R73.09 and Elevated lip ids E78.5 [place] [address] [address] Sep, Abnormal glucose R73.09 and Elevated lip ids E78.5 [place] [address] [address] Aug, [place] [address] [place] [address] Aug, [place] [address] [address] Aug, [place] [address] [address] Aug, 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 ; Hypokalemia E87.6 ; Irritable bowel K58.9 ; Essential hypertension I10 ; Pain in right shoulder M25.511 ; Seizure disorder G40.909 and Screening for lipid disorders Z13.220 [place] [address] [address] 28 Jul, 2016 Other chronic pain G89.29 and Pain in ri ght shoulder M25.511 [place] [address] [address] 14 Jul, 2016 Biceps muscle strain, right, subsequent encounter S46.111D [facility] [address] [facility] [id number] [address] [address] 08 Jul, 2016 Arm pain, right M79.601 [place] [address] [address] Jun, [place] [address] [address] Jun, Acute non-recurrent frontal sinusitis J0 1.10 [place] [address] [address] May, Generalized abdominal pain R10.84 ; Urin rohan tract infection without hematuria, site unspecified N39.0 ; Hypokalemia E87.6 ; Essential hypertension I10 ; Screening for lipid disorders Z13.220 ; Seizure R56.9 and Low back pain M54.5 [place] [address] [address] Apr, [facility] [address] [address] Feb, [place] [address] [address] Jan, [place] [address] [address] Dec, 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 ; Hypokalemia E87.6 ; Irritable bowel K58.9 and Nausea R11.0 [facility] [place] [address] [address] Dec, Generalized abdominal pain R 10.84 [place] [address] [address] Nov, [facility] [place] [address] [address] Aug, Acute bronchitis J20.9 [place] [address] [address] 14 Aug, 2015 [place] [address] [address] 08 Aug, 2015 Low back pain M54.5 ; Hypokalemia E87.6 ; Chronic migraine without aura with status migrainosus, not intractable G43.701 ; Tremor, hereditary, benign G25.0 ; Irritable bowel K58.9 ; Essential hypertension I10 and Seizure R56.9 [place] [address] [address] 07 Aug, 2015 [place] [address] [address] Jul, [place] [address] [address] Jul, Low back pain M54.5 ; Hypokalemia E87.6 ; Chronic migraine without aura with status migrainosus, not intractable G43.701 ; Tremor, hereditary, benign G25.0 ; Irritable bowel K58.9 ; Essential hypertension I10 and Seizure R56.9 [place] [address] [address] Jun, Hypokalemia E87.6 [place] [address] [address] Jun, ADD (attention deficit disorder) without hyperactivity F90.0 ; Generalized anxiety disorder F41.1 and Major depressive disorder, recurrent episode, moderate F33.1 [place] [address] [address] Jun, Low back pain M54.5 ; Hypokalemia E87.6 ; Chronic migraine without aura with status migrainosus, not intractable G43.701 ; Tremor, hereditary, benign G25.0 ; Irritable bowel K58.9 ; Essential hypertension I10 and Seizure R56.9 [place] [address] [address] Jun, [place] [address] [address] May, [place] [address] [address] May, Low back pain M54.5 ; Hypokalemia E87.6 ; Chronic migraine without aura with status migrainosus, not intractable G43.701 ; Tremor, hereditary, benign G25.0 ; Irritable bowel K58.9 ; Essential hypertension I10 ; Seizure R56.9 and Tinea capitis B35.0 [place] [address] [address] May, Low back pain M54.5 ; Hypokalemia E87.6 ; Chronic migraine without aura with status migrainosus, not intractable G43.701 ; Tremor, hereditary, benign G25.0 ; Irritable bowel K58.9 ; Essential hypertension I10 ; Seizure R56.9 ; Otitis media, left H66.92 and Dysuria 788.1 [place] [address] [address] 14 May, 2015 Tooth pain K08.8 [place] [address] [address] May, [place] [address] [address] May, Low back pain M54.5 ; Hypokalemia E87.6 ; Chronic migraine without aura with status migrainosus, not intractable G43.701 ; Tremor, hereditary, benign G25.0 ; Irritable bowel K58.9 and Essential hypertension I10 [place] [address] [address] Apr, Low back pain M54.5 ; Hypokalemia E87.6 ; Chronic migraine without aura with status migrainosus, not intractable G43.701 ; Tremor, hereditary, benign G25.0 and Irritable bowel K58.9 [place] [address] [address] Apr, Low back pain M54.5 [place] [address] [address] Mar, [place] [address] [address] Mar, Irritable bowel syndrome with diarrhea K 58.0 [place] [address] [address] Mar, [place] [address] [address] Feb, [place] [address] [address] 08 Feb, 2015 [place] [address] [address] Feb, Irritable bowel syndrome 564.1 ; Lumbago 724.2 and Cervical pain (neck) 723.1 [facility] [address] [address] Dec, Major depressive disorder, recurrent epi sode, moderate 296.32 and Generalized anxiety disorder 300.02 [facility] [address] [address] Nov, [facility] [address] [address] Nov, Major depressive disorder, recurrent epi sode, moderate 296.32 [facility] [address] [address] Nov, Constipation 564.00 ; Nausea & vomiting 787.01 and Abdominal pain 789.00 [facility] [address] [address] Nov, [facility] [address] [address] October, [facility] [address] [address] October, [facility] [address] [address] October, [facility] [address] [address] October, [facility] [address] [address] Sep, Dysuria 788.1 [facility] [address] [address] Sep, [facility] [address] [address] Sep, [facility] [address] [address] Sep, [facility] [address] [id number] [place] [address] 13 Sep, 2014 [facility] [address] [id number] [place] [address] 30 Aug, 2014 [facility] [address] [id number] [place] [address] Aug, [facility] [address] [id number] [place] [address] Aug, [facility] [address] [id number] [place] [address] Aug, [facility] [address] [id number] [place] [address] Aug, [facility] [address] [id number] [place] [address] Aug, [facility] [address] [id number] [place] [address] Aug, [facility] [address] [id number] [place] [address] Aug, [facility] [address] [id number] [place] [address] Aug, [facility] [address] [id number] [place] [address] Aug, [facility] [address] [id number] [place] [address] Jun, [facility] [address] [id number] [place] [address] Jun, [facility] [address] [id number] [place] [address] Jun, [facility] [address] [id number] [place] [address] Jun, [facility] [address] [id number] [place] [address] May, [facility] [address] [id number] [place] [address] May, [facility] [address] [facility] [id number] [place] [address] May, [facility] [address] [facility] [id number] [place] [address] May, [facility] [address] [id number] [place] [address] May, [facility] [address] [id number] [place] [address] May, [facility] [address] [facility] [id number] [place] [address] May, [facility] [address] [id number] [place] [address] May, [facility] [address] [id number] [place] [address] Mar, [facility] [address] [id number] [place] [address] Mar, [facility] [address] [id number] [place] [address] Mar, [facility] [address] [id number] [place] [address] Mar, [facility] [address] [id number] [place] [address] Mar, [facility] [address] [id number] [place] [address] Mar, [facility] [address] [id number] [place] [address] Mar, [facility] [address] [id number] [place] [address] Mar, [facility] [address] [id number] [place] [address] Mar, [facility] [address] [id number] [place] [address] Mar, [facility] [address] [id number] [place] [address] Mar, [facility] [address] [id number] [place] [address] Mar, [facility] [address] [facility] [id number] [place] [address] Feb, [facility] [address] [id number] [place] [address] Feb, [facility] [address] [id number] [facility] [place] [address] Feb, [facility] [address] [id number] [place] [address] Feb, [facility] [address] [id number] [place] [address] Feb, [facility] [address] [id number] [place] [address] Feb, [facility] [address] [id number] [place] [address] Jan, [facility] [address] [id number] [place] [address] Jan, [facility] [address] [id number] [place] [address] Jan, [facility] [address] [id number] [place] [address] Jan, [facility] [address] [id number] [place] [address] Jan, [facility] [address] [id number] [place] [address] Jan, [facility] [address] [id number] [place] [address] Jan, [facility] [address] [id number] [place] [address] Jan, [facility] [address] [id number] [place] [address] Dec, [facility] [address] [id number] [place] [address] Dec, [facility] [address] [id number] [facility] [place] [address] Dec, [facility] [address] [facility] [id number] [facility] [place] [address] Dec, [facility] [address] [id number] [facility] [place] [address] Dec, [facility] [address] [facility] [id number] [facility] [place] [address] Dec, [facility] [address] [id number] [place] [address] Dec, [facility] [address] [id number] [place] [address] Dec, [facility] [address] [id number] [place] [address] October, [facility] [address] [id number] [place] [address] October, [facility] [address] [id number] [place] [address] Sep, [facility] [id number] [place] [address] Sep, [facility] [address] [id number] [place] [address] Sep, [facility] [address] [id number] [place] [address] Sep, [facility] [address] [id number] [place] [address] Sep, [facility] [address] [id number] [place] [address] Sep, [facility] [address] [id number] [place] [address] Sep, [facility] [address] [id number] [place] [address] Sep, [facility] [address] [facility] [id number] [place] [address] Sep, [facility] [address] [facility] [id number] [place] [address] Sep, [facility] [facility] [address] [id number] [place] [address] Sep, [facility] [address] [id number] [place] [address] Sep, [facility] [address] [facility] [id number] [place] [address] Aug, [facility] [address] [id number] [place] [address] Aug, [facility] [address] [id number] [place] [address] Aug, [facility] [address] [id number] [place] [address] Jun, [facility] [address] [id number] [place] [address] Jun, [facility] [address] [id number] [place] [address] Jun, [facility] [address] [id number] [place] [address] Jun, [facility] [address] [id number] [place] [address] Jun, [facility] [address] [id number] [place] [address] Jun, [facility] [address] [id number] [place] [address] Jun, [facility] [address] [id number] [place] [address] Jun, [facility] [address] [id number] [place] [address] Jun, [facility] [address] [id number] [place] [address] Jun, [facility] [address] [id number] [place] [address] May, [facility] [address] [id number] [place] [address] May, [facility] [address] [id number] [place] [address] May, [facility] [address] [id number] [place] [address] May, [facility] [address] [id number] [place] [address] Apr, [facility] [address] [id number] [place] [address] Apr, [facility] [id number] [place] [address] Apr, [facility] [id number] [place] [address] Apr, [facility] [address] [id number] [place] [address] Apr, [facility] [id number] [place] [address] Apr, [facility] [id number] [place] [address] Apr, [facility] [address] [id number] [place] [address] Apr, [facility] [address] [id number] [place] [address] Mar, [facility] [id number] [place] [address] Mar, [facility] [address] [id number] [place] [address] Mar, [facility] [id number] [place] [address] Mar, [facility] [address] [id number] [place] [address] Mar, [facility] [address] [id number] [place] [address] Feb, [facility] [address] [id number] [place] [address] Feb, [facility] [address] [id number] [place] [address] Feb, [facility] [address] [id number] [place] [address] Feb, [facility] [address] [id number] [place] [address] Feb, [facility] [address] [id number] [place] [address] Jan, [facility] [address] [id number] [place] [address] Jan, [facility] [address] [id number] [place] [address] Nov, [facility] [address] [id number] [place] [address] Nov, [facility] [address] [id number] [place] [address] Nov, [facility] [address] [id number] [place] [address] Nov, [facility] [address] [id number] [place] [address] October, [facility] [address] [id number] [place] [address] Sep, [facility] [address] [id number] [place] [address] Aug, [facility] [address] [id number] [place] [address] Aug, [facility] [address] [id number] [place] [address] Aug, [facility] [address] [facility] [id number] [place] [address] Aug, [facility] [address] [id number] [place] [address] Jul, [facility] [address] [id number] [place] [address] Jun, [facility] [address] [id number] [place] [address] Jun, [facility] [address] [facility] [id number] [place] [address] May, [facility] [address] [id number] [place] [address] May, [facility] [address] [facility] [id number] [place] [id number] Mar, [facility] [address] [id number] [place] [address] Mar, [facility] [address] [id number] [place] [address] Mar, [facility] [address] [id number] [place] [address] Mar, [facility] [address] [id number] [place] [address] Mar, [facility] [address] [id number] [place] [address] Mar, [facility] [address] [id number] [place] [address] Mar, [facility] [address] [id number] [place] [address] Mar, [facility] [address] [id number] [place] [address] Mar, [facility] [address] [id number] [place] [address] Mar, [facility] [address] [id number] [place] [address] 20 Mar, 2011 [facility] [address] [id number] [place] [address] 17 Mar, 2011 [facility] [address] [id number] [place] [address] 17 Mar, 2012 [facility] [address] [id number] [place] [address] 15 Mar, 2012 [facility] [address] [id number] [place] [address] 15 Mar, 2012 [facility] [address] [id number] [place] [address] 15 Mar, 2012 [facility] [address] [id number] [place] [address] 15 Mar, 2012 [facility] [address] [id number] [place] [address] 11 Mar, 2012 [facility] [address] [id number] [place] [address] 11 Mar, 2012 [facility] [address] [id number] [place] [address] 08 Mar, 2012 [facility] [address] [id number] [place] [address] 08 Mar, 2012 [facility] [address] [id number] [place] [address] 03 Mar, 2012 [facility] [address] [id number] [place] [address] 01 Mar, 2012 [facility] [address] [id number] [place] [address] 19 Sep, 2011 [facility] [address] [id number] [place] [address] 18 Sep, 2011 [facility] [address] [id number] [place] [address] 17 Sep, 2011 [facility] [address] [id number] [place] [address] 14 Sep, 2011 [facility] [address] [id number] [place] [address] 14 Feb, 2012 [facility] [address] [id number] [place] [address] 12 Feb, 2012 [facility] [address] [id number] [place] [address] 10 Feb, 2012 [facility] [address] [id number] [place] [address] 31 Jan, 2012 [facility] [address] [id number] [place] [address] 30 Jan, 2012 [facility] [address] [id number] [place] [address] Jan, [facility] [address] [id number] [place] [address] Jan, [facility] [address] [id number] [place] [address] Jan, [facility] [address] [id number] [place] [address] Jan, [facility] [address] [id number] [place] [address] 17 Jan, 2012 [facility] [address] [id number] [place] [address] 16 Jan, 2012 [facility] [address] [id number] [place] [address] 13 Jan, 2012 [facility] [address] [id number] [place] [address] Jan, [facility] [address] [id number] [place] [address] Dec, [facility] [address] [id number] [place] [address] 24 Dec, 2011 [facility] [address] [id number] [place] [address] Dec, [facility] [address] [id number] [place] [address] 19 Dec, 2011 [facility] [address] [id number] [facility] [place] [address] 18 Dec, 2011 [facility] [address] [facility] [id number] [facility] [place] [address] 17 Dec, 2011 [facility] [address] [facility] [id number] [facility] [place] [address] 16 Dec, 2011 [facility] [address] [facility] [id number] [facility] [place] [address] 14 Dec, 2011 [facility] [address] [facility] [id number] [facility] [place] [address] 12 Dec, 2011 [facility] [address] [id number] [facility] [place] [address] 12 Dec, 2011 [facility] [address] [id number] [facility] [place] [address] 06 Dec, 2011 [facility] [address] [id number] [facility] [place] [address] 29 Nov, 2011 [facility] [address] [facility] [id number] [facility] [place] [address] 27 Nov, 2011 [facility] [address] [id number] [facility] [place] [address] 25 Nov, 2011 [facility] [address] [id number] [place] [address] 23 Nov, 2011 [facility] [address] [id number] [place] [address] Nov, [facility] [address] [facility] [id number] [facility] [place] [address] 20 Nov, 2011 [facility] [address] [facility] [id number] [place] [address] 13 Nov, 2011 [facility] [address] [facility] [id number] [place] [address] 13 Nov, 2011 [facility] [address] [id number] [facility] [place] [address] 11 Nov, 2011 [facility] [address] [id number] [place] [address] Nov, [facility] [address] [facility] [id number] [place] [address] October, IMMUNIZATIONS No Known Immunizations SOCIAL HISTORY [...]
--- OUTSIDE RECORDS SUMMARY | 2019-11-15 09:42 | XMS REPORT ---
Author Author Maggy Ballesteros Doctor Organization [facility] Address Unknown Phone Unavailable Care Team Providers Care Courier Driver Name Role Phone Migration, Doctor Unavailable Unavailable PROBLEMS Type Condition ICD9-CM Code ABA49-LN Code Onset Dates Condition S tatus SNOMED Code Problem Elevated liver enzymes R74.8 Active 872492197 Problem Abnormal glucose R73.09 Active 102 898354 Problem Major depressive disorder, recurrent episode, moderate F33.1 Active 264957484 Problem Hyperlipidemia LDL goal <100 E78.5 A ctive 80212881 Problem Other chronic pain G89.29 Active 8 6108959 Problem Intractable chronic migraine without aura and wi th status migrainosus G43.711 Active 331384063 Problem Essential hypertension I10 Active 62398002 Problem Hypokalemia E87.6 Active 17026100 Problem Other chronic pain G89.29 Active 8 9042752 Problem 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 Active 84362803 Problem Primary insomnia F51.01 Active 397 2004 Problem Seizure disorder G40.909 Active 128 713187 Problem Moderate persistent asthma with exacerbation J45.4 1 Active 480894384 Problem Moderate persistent asthma without complication J4 5.40 Active 346221425 Problem Reflux gastritis K29.60 Active 729 57674 Problem Irritable bowel syndrome with constipation K58.1 Active 206732283 Problem Lumbago with sciatica, left side M54.42 Active 314634538 Problem Migraine with aura and without status migrainosu s, not intractable G43.109 Active 5067545 Problem Irritable bowel K58.9 Active 1074 3008 Problem History of hypokalemia Z86.39 Active 360793217 Problem Tremor, hereditary, benign G25.0 Act caitlin 491393746 Problem Chronic migraine without aura with statu s migrainosus, not intractable G43.701 Active 105734203 Problem Lumbago with sciatica, right side M54.41 Active [id number] Problem Mood disorder F39 Active 269894 05 Problem RLS (restless legs syndrome) G25.81 A ctive 18374833 Problem Aneurysm I72.9 Active 47927386 ALLERGIES No Information ENCOUNTERS Encounter Location Date Diagnosis [place] [address] [address] Aug, [facility] [address] [address] Jul, [facility] [address] [facility] [id number] [address] [place] [address] 19 Jul, 2019 Rib pain on left side R07.81 [place] [address] [address] 10 Jul, 2019 Seizure disorder G40.909 and Aneurysm I7 2.9 [facility] [address] [address] 07 Jul, 2019 [place] [address] [address] 06 Jul, 2019 Seizure disorder G40.909 ; Aneurysm I72. 9 ; Migraine with aura and without status migrainosus, not intractable G43.109 and History of hypokalemia Z86.39 [place] [address] [address] 04 Jul, 2019 [place] [address] [address] Jun, [place] [address] [address] Jun, Seizures R56.9 ; Migraine with aura and without status migrainosus, not intractable G43.109 ; Other chronic pain G89.29 and Pain in right shoulder M25.511 [place] [address] [address] Jun, [place] [address] [address] May, Primary insomnia F51.01 ; Intractable ch ronic migraine without aura and with status migrainosus G43.711 and Aneurysm I72.9 [place] [address] [address] Apr, RLS (restless legs syndrome) G25.81 and Mood disorder F39 [place] [address] [address] Apr, [place] [address] [address] Mar, Other chronic pain G89.29 and Pain in ri ght shoulder M25.511 [place] [address] [address] Mar, Acute left ankle pain M25.572 [place] [address] [address] Mar, [place] [address] [address] Mar, Acute left ankle pain M25.572 [place] [address] [address] Mar, Major depressive disorder, recurrent epi sode, moderate F33.1 [place] [address] [address] Mar, Major depressive disorder, recurrent epi sode, moderate F33.1 ; Lumbago with sciatica, left side M54.42 and Lumbago with sciatica, right side M54.41 [place] [address] [address] Mar, [place] [address] [address] Mar, [place] [address] [address] Mar, Major depressive disorder, recurrent epi sode, moderate F33.1 ; Lumbago with sciatica, left side M54.42 and Lumbago with sciatica, right side M54.41 [place] [address] [place] [address] Feb, Viral gastroenteritis A08.4 [facility] [place] [address] [place] [id number] [address] [place] [address] Feb, Nausea and vomiting, intract ability of vomiting not specified, unspecified vomiting type R11.2 [place] [address] [place] [id number] [place] [address] Feb, [place] [address] [address] Feb, [place] [address] [address] Feb, C. difficile colitis A04.72 ; Mood disor dionicio F39 ; Lumbago with sciatica, left side M54.42 ; Lumbago with sciatica, right side M54.41 and Other chronic pain G89.29 [place] [address] [address] Jan, [facility] [place] [address] [place] [id number] [address] [place] [address] Jan, Nausea & vomiting R11.2 [place] [address] [address] Dec, Irritable bowel syndrome with constipati on K58.1 ; Other chronic pain G89.29 and Pain in right shoulder M25.511 [facility] [place] [address] [place] [address] Dec, Generalized abdominal pain R 10.84 and Nausea and vomiting, intractability of vomiting not specified, unspecified vomiting type R11.2 [facility] [place] [address] [address] [place] [id number] [address] [place] [address] Dec, [facility] [address] [place] [id number] [place] [address] Dec, Dysuria R30.0 and Irritable bowel K58.9 [facility] [address] [id number] [address] Sep, Chronic nausea R11.0 [facility] [address] [address] Sep, [facility] [address] [address] Sep, Viral gastroenteritis A08.4 [facility] [address] [facility] [id number] [place] [address] Aug, Headache R51 ; Viral upper r espiratory tract infection J06.9 and Nausea R11.0 [facility] [address] [facility] [id number] [place] [address] Jun, Reflux gastritis K29.60 [facility] [address] [address] Jun, [facility] [address] [address] May, [facility] [address] [address] May, [place] [address] [address] Apr, Bowel habit changes R19.4 and Acute cyst itis without hematuria N30.00 [place] [address] [address] Apr, Pain in right shoulder M25.511 [place] [address] [address] Apr, [facility] [address] [address] Mar, [facility] [address] [address] Mar, [facility] [address] [address] Mar, [facility] [address] [address] Mar, [facility] [address] [place] [id number] [place] [address] 14 Feb, 2018 [facility] [address] [address] 10 Feb, 2018 [facility] [address] [place] [id number] [place] [address] Feb, [facility] [address] [address] Jan, [facility] [address] [address] Dec, [facility] [address] [address] Dec, Other chronic pain G89.29 ; Pain in righ t shoulder M25.511 and Liver enzyme elevation R74.8 [place] [address] [address] Nov, Other chronic pain G89.29 and Pain in ri ght shoulder M25.511 [facility] [address] [place] [id number] [place] [address] October, [facility] [address] [facility] [id number] [address] [place] [address] October, Right shoulder pain, unspeci fied chronicity M25.511 [facility] [address] [place] [id number] [place] [address] Aug, Elevated liver enzymes R74.8 and Hyperli pidemia LDL goal <100 E78.5 [facility] [address] [id number] [place] [address] Aug, [facility] [address] [address] Jul, [facility] [address] [address] Jul, Intractable chronic migraine without aur a and with status migrainosus G43.711 ; Fever, unspecified fever cause R50.9 and Elevated liver enzymes R74.8 [place] [address] [address] Jun, Difficulty urinating R39.198 and Moderat e persistent asthma with exacerbation J45.41 [place] [address] [address] Jun, [place] [address] [address] Jun, Moderate persistent asthma with exacerba tion J45.41 [place] [address] [address] May, Elevated liver enzymes R74.8 and Hyperli pidemia LDL goal <100 E78.5 [place] [address] [address] May, Elevated lipids E78.5 [place] [address] [address] Apr, Elevated liver enzymes R74.8 [place] [address] [address] Apr, Elevated liver enzymes R74.8 [place] [address] [address] Apr, Superior glenoid labrum lesion of right shoulder, subsequent encounter S43.431D [place] [address] [address] Apr, Hypokalemia E87.6 ; Major depressive dis order, recurrent episode, moderate F33.1 ; Other abnormalities of breathing R06.89 and Dyspnea, unspecified R06.00 [facility] [address] [facility] [id number] [address] [place] [address] Mar, Moderate persistent asthma w ithout complication J45.40 [facility] [address] [address] Mar, Impingement syndrome of right shoulder M 75.41 [place] [address] [address] Jan, [place] [address] [address] Jan, Chronic migraine without aura with statu s migrainosus, not intractable G43.701 ; Essential hypertension I10 ; Irritable bowel K58.9 ; Primary insomnia F51.01 and Hypokalemia E87.6 [place] [address] [address] Dec, [place] [address] [address] Dec, Pain in right shoulder M25.511 [place] [address] [address] Dec, Essential hypertension I10 [place] [address] [address] Dec, [place] [address] [address] Nov, Essential hypertension I10 [place] [address] [address] Nov, Pain in right shoulder M25.511 [place] [address] [address] Nov, Pain in right shoulder M25.511 [place] [address] [address] October, [place] [address] [address] October, Pain in right shoulder M25.511 [place] [address] [address] Sep, Arm pain, right M79.601 [place] [address] [address] Sep, [place] [address] [address] Sep, Abnormal glucose R73.09 and Elevated lip ids E78.5 [place] [address] [address] Sep, Abnormal glucose R73.09 and Elevated lip ids E78.5 [place] [address] [address] Aug, [place] [address] [place] [address] Aug, [place] [address] [address] Aug, [place] [address] [address] Aug, 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 ; Hypokalemia E87.6 ; Irritable bowel K58.9 ; Essential hypertension I10 ; Pain in right shoulder M25.511 ; Seizure disorder G40.909 and Screening for lipid disorders Z13.220 [place] [address] [address] 28 Jul, 2016 Other chronic pain G89.29 and Pain in ri ght shoulder M25.511 [place] [address] [address] 14 Jul, 2016 Biceps muscle strain, right, subsequent encounter S46.111D [facility] [address] [facility] [id number] [address] [place] [address] 08 Jul, 2016 Arm pain, right M79.601 [place] [address] [address] Jun, [place] [address] [address] Jun, Acute non-recurrent frontal sinusitis J0 1.10 [place] [address] [address] May, Generalized abdominal pain R10.84 ; Urin rohan tract infection without hematuria, site unspecified N39.0 ; Hypokalemia E87.6 ; Essential hypertension I10 ; Screening for lipid disorders Z13.220 ; Seizure R56.9 and Low back pain M54.5 [place] [address] [address] Apr, [facility] [address] [address] Feb, [place] [address] [address] Jan, [place] [address] [address] Dec, 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 ; Hypokalemia E87.6 ; Irritable bowel K58.9 and Nausea R11.0 [facility] [place] [address] [address] Dec, Generalized abdominal pain R 10.84 [place] [address] [address] Nov, [facility] [place] [address] [address] Aug, Acute bronchitis J20.9 [place] [address] [address] 14 Aug, 2015 [place] [address] [address] 08 Aug, 2015 Low back pain M54.5 ; Hypokalemia E87.6 ; Chronic migraine without aura with status migrainosus, not intractable G43.701 ; Tremor, hereditary, benign G25.0 ; Irritable bowel K58.9 ; Essential hypertension I10 and Seizure R56.9 [place] [address] [address] 07 Aug, 2015 [place] [address] [address] Jul, [place] [address] [address] Jul, Low back pain M54.5 ; Hypokalemia E87.6 ; Chronic migraine without aura with status migrainosus, not intractable G43.701 ; Tremor, hereditary, benign G25.0 ; Irritable bowel K58.9 ; Essential hypertension I10 and Seizure R56.9 [place] [address] [address] Jun, Hypokalemia E87.6 [place] [address] [address] Jun, ADD (attention deficit disorder) without hyperactivity F90.0 ; Generalized anxiety disorder F41.1 and Major depressive disorder, recurrent episode, moderate F33.1 [place] [address] [address] Jun, Low back pain M54.5 ; Hypokalemia E87.6 ; Chronic migraine without aura with status migrainosus, not intractable G43.701 ; Tremor, hereditary, benign G25.0 ; Irritable bowel K58.9 ; Essential hypertension I10 and Seizure R56.9 [place] [address] [address] Jun, [place] [address] [address] May, [place] [address] [address] May, Low back pain M54.5 ; Hypokalemia E87.6 ; Chronic migraine without aura with status migrainosus, not intractable G43.701 ; Tremor, hereditary, benign G25.0 ; Irritable bowel K58.9 ; Essential hypertension I10 ; Seizure R56.9 and Tinea capitis B35.0 [place] [address] [address] May, Low back pain M54.5 ; Hypokalemia E87.6 ; Chronic migraine without aura with status migrainosus, not intractable G43.701 ; Tremor, hereditary, benign G25.0 ; Irritable bowel K58.9 ; Essential hypertension I10 ; Seizure R56.9 ; Otitis media, left H66.92 and Dysuria 788.1 [place] [address] [address] 14 May, 2015 Tooth pain K08.8 [place] [address] [address] May, [place] [address] [address] May, Low back pain M54.5 ; Hypokalemia E87.6 ; Chronic migraine without aura with status migrainosus, not intractable G43.701 ; Tremor, hereditary, benign G25.0 ; Irritable bowel K58.9 and Essential hypertension I10 [place] [address] [address] Apr, Low back pain M54.5 ; Hypokalemia E87.6 ; Chronic migraine without aura with status migrainosus, not intractable G43.701 ; Tremor, hereditary, benign G25.0 and Irritable bowel K58.9 [place] [address] [address] Apr, Low back pain M54.5 [place] [address] [address] Mar, [place] [address] [address] Mar, Irritable bowel syndrome with diarrhea K 58.0 [place] [address] [address] Mar, [place] [address] [address] Feb, [place] [address] [address] 08 Feb, 2015 [place] [address] [address] Feb, Irritable bowel syndrome 564.1 ; Lumbago 724.2 and Cervical pain (neck) 723.1 [facility] [address] [address] Dec, Major depressive disorder, recurrent epi sode, moderate 296.32 and Generalized anxiety disorder 300.02 [facility] [address] [address] Nov, [facility] [address] [address] Nov, Major depressive disorder, recurrent epi sode, moderate 296.32 [facility] [address] [address] Nov, Constipation 564.00 ; Nausea & vomiting 787.01 and Abdominal pain 789.00 [facility] [address] [address] Nov, [facility] [address] [address] October, [facility] [address] [address] October, [facility] [address] [address] October, [facility] [address] [address] October, [facility] [address] [address] Sep, Dysuria 788.1 [facility] [address] [address] Sep, [facility] [address] [address] Sep, [facility] [address] [address] Sep, [facility] [address] [id number] [place] [address] 13 Sep, 2014 [facility] [address] [id number] [place] [address] 30 Aug, 2014 [facility] [address] [id number] [place] [address] Aug, [facility] [address] [id number] [place] [address] Aug, [facility] [address] [id number] [place] [address] Aug, [facility] [address] [id number] [place] [address] Aug, [facility] [address] [id number] [place] [address] Aug, [facility] [address] [id number] [place] [address] Aug, [facility] [address] [id number] [place] [address] Aug, [facility] [address] [id number] [place] [address] Aug, [facility] [address] [id number] [place] [address] Aug, [facility] [address] [id number] [place] [address] Jun, [facility] [address] [id number] [place] [address] Jun, [facility] [address] [id number] [place] [address] Jun, [facility] [address] [id number] [place] [address] Jun, [facility] [address] [id number] [place] [address] May, [facility] [address] [id number] [place] [address] May, [facility] [address] [facility] [id number] [place] [address] May, [facility] [address] [facility] [id number] [place] [address] May, [facility] [address] [id number] [place] [address] May, [facility] [address] [id number] [place] [address] May, [facility] [address] [facility] [id number] [place] [address] May, [facility] [address] [id number] [place] [address] May, [facility] [address] [id number] [place] [address] Mar, [facility] [address] [id number] [place] [address] Mar, [facility] [address] [id number] [place] [address] Mar, [facility] [address] [id number] [place] [address] Mar, [facility] [address] [id number] [place] [address] Mar, [facility] [address] [id number] [place] [address] Mar, [facility] [address] [id number] [place] [address] Mar, [facility] [address] [id number] [place] [address] Mar, [facility] [address] [id number] [place] [address] Mar, [facility] [address] [id number] [place] [address] Mar, [facility] [address] [id number] [place] [address] Mar, [facility] [address] [id number] [place] [address] Mar, [facility] [address] [facility] [id number] [place] [address] Feb, [facility] [address] [id number] [place] [address] Feb, [facility] [address] [id number] [facility] [address] Feb, [facility] [address] [id number] [place] [address] Feb, [facility] [address] [id number] [place] [address] Feb, [facility] [id number] [place] [address] Feb, [facility] [id number] [place] [address] Jan, [facility] [address] [id number] [place] [address] Jan, [facility] [id number] [place] [address] Jan, [facility] [address] [id number] [place] [address] Jan, [facility] [address] [address] [id number] [place] [address] Jan, [facility] [address] [id number] [place] [address] Jan, [facility] [address] [id number] [place] [address] Jan, [facility] [address] [id number] [place] [address] Jan, [facility] [address] [address] [id number] [place] [address] Dec, [facility] [address] [id number] [place] [address] Dec, [facility] [address] [id number] [facility] [place] [address] Dec, [facility] [address] [facility] [id number] [facility] [place] [address] Dec, [facility] [address] [id number] [facility] [place] [address] Dec, [facility] [address] [facility] [id number] [facility] [place] [address] Dec, [facility] [address] [id number] [place] [address] Dec, [facility] [address] [address] [id number] [place] [address] Dec, [facility] [id number] [place] [address] October, [facility] [address] [id number] [place] [address] October, [facility] [address] [id number] [place] [address] Sep, [facility] [address] [id number] [place] [address] Sep, [facility] [address] [id number] [place] [address] Sep, [facility] [address] [facility] [id number] [place] [address] Sep, [facility] [address] [id number] [place] [address] Sep, [facility] [address] [id number] [place] [address] Sep, [facility] [address] [id number] [place] [address] Sep, [facility] [address] [id number] [place] [address] Sep, [facility] [address] [facility] [id number] [place] [address] Sep, [facility] [address] [facility] [id number] [place] [address] Sep, [facility] [address] [id number] [place] [address] Sep, [facility] [address] [id number] [place] [address] Sep, [facility] [address] [facility] [id number] [place] [address] Aug, [facility] [address] [id number] [place] [address] Aug, [facility] [address] [id number] [place] [address] Aug, [facility] [address] [id number] [place] [address] Jun, [facility] [address] [id number] [place] [address] Jun, [facility] [address] [id number] [place] [address] Jun, [facility] [address] [id number] [place] [address] Jun, [facility] [address] [id number] [place] [address] Jun, [facility] [address] [id number] [place] [address] Jun, [facility] [address] [id number] [place] [address] Jun, [facility] [address] [id number] [place] [address] Jun, [facility] [address] [id number] [place] [address] Jun, [facility] [address] [id number] [place] [address] Jun, [facility] [address] [id number] [place] [address] May, [facility] [address] [id number] [place] [address] May, [facility] [id number] [place] [address] May, [facility] [address] [id number] [place] [address] May, [facility] [address] [id number] [place] [address] Apr, [facility] [address] [id number] [place] [address] Apr, [facility] [id number] [place] [address] Apr, [facility] [id number] [place] [address] Apr, [facility] [address] [id number] [place] [address] Apr, [facility] [id number] [place] [address] Apr, [facility] [id number] [place] [address] Apr, [facility] [address] [id number] [place] [address] Apr, [facility] [address] [id number] [place] [address] Mar, [facility] [id number] [place] [address] Mar, [facility] [address] [id number] [place] [address] Mar, [facility] [id number] [place] [address] Mar, [facility] [address] [id number] [place] [address] Mar, [facility] [address] [id number] [place] [address] Feb, [facility] [address] [id number] [place] [address] Feb, [facility] [address] [id number] [place] [address] Feb, [facility] [address] [id number] [place] [address] Feb, [facility] [address] [id number] [place] [address] Feb, [facility] [address] [id number] [place] [address] Jan, [facility] [address] [id number] [place] [address] Jan, [facility] [address] [id number] [place] [address] Nov, [facility] [address] [id number] [place] [address] Nov, [facility] [address] [id number] [place] [address] Nov, [facility] [address] [id number] [place] [address] Nov, [facility] [address] [id number] [place] [address] October, [facility] [address] [id number] [place] [address] Sep, [facility] [address] [id number] [place] [address] Aug, [facility] [address] [id number] [place] [address] Aug, [facility] [address] [id number] [place] [address] Aug, [facility] [address] [facility] [id number] [place] [address] Aug, [facility] [address] [id number] [place] [address] Jul, [facility] [address] [id number] [place] [address] Jun, [facility] [address] [id number] [place] [address] Jun, [facility] [address] [facility] [id number] [place] [address] May, [facility] [address] [id number] [place] [address] May, [facility] [address] [facility] [id number] [place] [id number] Mar, [facility] [address] [id number] [place] [address] Mar, [facility] [address] [id number] [place] [address] Mar, [facility] [address] [id number] [place] [address] Mar, [facility] [address] [id number] [place] [address] Mar, [facility] [address] [id number] [place] [address] Mar, [facility] [address] [id number] [place] [address] Mar, [facility] [address] [id number] [place] [address] Mar, [facility] [address] [id number] [place] [address] Mar, [facility] [address] [id number] [place] [address] Mar, [facility] [address] [id number] [place] [address] 20 Mar, 2011 [facility] [address] [id number] [place] [address] 17 Mar, 2011 [facility] [address] [id number] [place] [address] 17 Mar, 2012 [facility] [address] [id number] [place] [address] 15 Mar, 2012 [facility] [address] [id number] [place] [address] 15 Mar, 2012 [facility] [address] [id number] [place] [address] 15 Mar, 2012 [facility] [address] [id number] [place] [address] 15 Mar, 2012 [facility] [address] [id number] [place] [address] 11 Mar, 2012 [facility] [address] [id number] [place] [address] 11 Mar, 2012 [facility] [address] [id number] [place] [address] 08 Mar, 2012 [facility] [address] [id number] [place] [address] 08 Mar, 2012 [facility] [address] [id number] [place] [address] 03 Mar, 2012 [facility] [address] [id number] [place] [address] 01 Mar, 2012 [facility] [address] [id number] [place] [address] 19 Sep, 2011 [facility] [address] [id number] [place] [address] 18 Sep, 2011 [facility] [address] [id number] [place] [address] 17 Sep, 2011 [facility] [address] [id number] [place] [address] 14 Sep, 2011 [facility] [address] [id number] [place] [address] 14 Feb, 2012 [facility] [address] [id number] [place] [address] 12 Feb, 2012 [facility] [address] [id number] [place] [address] 10 Feb, 2012 [facility] [address] [id number] [place] [address] 31 Jan, 2012 [facility] [address] [id number] [place] [address] 30 Jan, 2012 [facility] [address] [id number] [place] [address] Jan, [facility] [address] [id number] [place] [address] Jan, [facility] [address] [id number] [place] [address] Jan, [facility] [address] [id number] [place] [address] Jan, [facility] [address] [id number] [place] [address] 17 Jan, 2012 [facility] [address] [id number] [place] [address] 16 Jan, 2012 [facility] [address] [id number] [place] [address] 13 Jan, 2012 [facility] [address] [id number] [place] [address] Jan, [facility] [address] [id number] [place] [address] Dec, [facility] [address] [id number] [place] [address] 24 Dec, 2011 [facility] [address] [id number] [place] [address] Dec, [facility] [address] [id number] [place] [address] 19 Dec, 2011 [facility] [address] [id number] [facility] [place] [address] 18 Dec, 2011 [facility] [address] [facility] [id number] [facility] [place] [address] 17 Dec, 2011 [facility] [address] [facility] [id number] [facility] [place] [address] 16 Dec, 2011 [facility] [address] [facility] [id number] [facility] [place] [address] 14 Dec, 2011 [facility] [address] [facility] [id number] [facility] [place] [address] 12 Dec, 2011 [facility] [address] [id number] [facility] [place] [address] 12 Dec, 2011 [facility] [address] [id number] [facility] [place] [address] 06 Dec, 2011 [facility] [address] [id number] [facility] [place] [address] 29 Nov, 2011 [facility] [address] [facility] [id number] [facility] [place] [address] 27 Nov, 2011 [facility] [address] [id number] [facility] [place] [address] 25 Nov, 2011 [facility] [address] [id number] [place] [address] 23 Nov, 2011 [facility] [address] [id number] [place] [address] Nov, [facility] [address] [facility] [id number] [facility] [place] [address] 20 Nov, 2011 [facility] [address] [facility] [id number] [place] [address] 13 Nov, 2011 [facility] [address] [facility] [id number] [place] [address] 13 Nov, 2011 [facility] [address] [id number] [facility] [place] [address] 11 Nov, 2011 [facility] [address] [id number] [place] [address] Nov, [facility] [address] [facility] [id number] [place] [address] October, IMMUNIZATIONS No Known Immunizations SOCIAL HISTORY Never Assessed REASON FOR VISIT PLAN OF CARE VITAL SIGNS MEDICATIONS Unknown Medications RESULTS No Results PROCEDURES Procedure Date Ordered Result Body Site COLUMN CHROMOTOGRAPHY, QUANT September 10, 2013 DRUG SCREEN, QUALITATE/MULTI September 10, 2013 INSTRUCTIONS MEDICATIONS ADMINISTERED No Known Medications [...] hysterectomy-total 2005 Surgical History lower GI Gianni Lagrange -not sure results Surgical History EGD Hospitalization [...]
--- OUTSIDE RECORDS SUMMARY | 2019-11-15 09:43 | XMS REPORT ---
Author Author Maggy Ballesteros Doctor Organization [facility] Address Unknown Phone Unavailable Care Team Providers Care Rehab Tech Name Role Phone Migration, Doctor Unavailable Unavailable PROBLEMS Type Condition ICD9-CM Code IKI36-QW Code Onset Dates Condition S tatus SNOMED Code Problem Elevated liver enzymes R74.8 Active 094093068 Problem Abnormal glucose R73.09 Active 102 766748 Problem Major depressive disorder, recurrent episode, moderate F33.1 Active 395033451 Problem Hyperlipidemia LDL goal <100 E78.5 A ctive 45108719 Problem Other chronic pain G89.29 Active 8 0886208 Problem Intractable chronic migraine without aura and wi th status migrainosus G43.711 Active 210184990 Problem Essential hypertension I10 Active 31017797 Problem Hypokalemia E87.6 Active 83345279 Problem Other chronic pain G89.29 Active 8 7042934 Problem 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 Active 72353542 Problem Primary insomnia F51.01 Active 397 2004 Problem Seizure disorder G40.909 Active 128 814160 Problem Moderate persistent asthma with exacerbation J45.4 1 Active 451150979 Problem Moderate persistent asthma without complication J4 5.40 Active 946733532 Problem Reflux gastritis K29.60 Active 729 85994 Problem Irritable bowel syndrome with constipation K58.1 Active 728197165 Problem Lumbago with sciatica, left side M54.42 Active 930983261 Problem Migraine with aura and without status migrainosu s, not intractable G43.109 Active 7818373 Problem Irritable bowel K58.9 Active 1074 3008 Problem History of hypokalemia Z86.39 Active 389036166 Problem Tremor, hereditary, benign G25.0 Act caitlin 859606923 Problem Chronic migraine without aura with statu s migrainosus, not intractable G43.701 Active 029326539 Problem Lumbago with sciatica, right side M54.41 Active 773490845357373 Problem Mood disorder F39 Active 913311 05 Problem RLS (restless legs syndrome) G25.81 A ctive 39325938 Problem Aneurysm I72.9 Active 85408515 ALLERGIES No Information ENCOUNTERS Encounter Location Date Diagnosis [place] [address] [address] 07 Jul, 2019 [place] [address] [address] 06 Jul, 2019 Seizure disorder G40.909 ; Aneurysm I72. 9 ; Migraine with aura and without status migrainosus, not intractable G43.109 and History of hypokalemia Z86.39 [place] [address] [address] 04 Jul, 2019 [place] [address] [address] Jun, [place] [address] [address] Jun, Seizures R56.9 ; Migraine with aura and without status migrainosus, not intractable G43.109 ; Other chronic pain G89.29 and Pain in right shoulder M25.511 [place] [address] [address] Jun, [place] [address] [address] May, Primary insomnia F51.01 ; Intractable ch ronic migraine without aura and with status migrainosus G43.711 and Aneurysm I72.9 [place] [address] [address] Apr, RLS (restless legs syndrome) G25.81 and Mood disorder F39 [place] [address] [address] Apr, [place] [address] [address] 24 Mar, 2019 Other chronic pain G89.29 and Pain in ri ght shoulder M25.511 [place] [address] [address] Mar, Acute left ankle pain M25.572 [facility] [address] [address] Mar, [facility] [address] [address] Mar, Acute left ankle pain M25.572 [facility] [address] [address] Mar, Major depressive disorder, recurrent epi sode, moderate F33.1 [place] [address] [address] Mar, Major depressive disorder, recurrent epi sode, moderate F33.1 ; Lumbago with sciatica, left side M54.42 and Lumbago with sciatica, right side M54.41 [place] [address] [address] Mar, [place] [address] [address] Mar, [place] [address] [address] Mar, Major depressive disorder, recurrent epi sode, moderate F33.1 ; Lumbago with sciatica, left side M54.42 and Lumbago with sciatica, right side M54.41 [place] [address] [address] Feb, Viral gastroenteritis A08.4 [facility] [address] [facility] [id number] [address] [place] [address] Feb, Nausea and vomiting, intract ability of vomiting not specified, unspecified vomiting type R11.2 [place] [address] [place] [id number] [place] [address] Feb, [facility] [address] [address] Feb, [place] [address] [address] Feb, C. difficile colitis A04.72 ; Mood disor dionicio F39 ; Lumbago with sciatica, left side M54.42 ; Lumbago with sciatica, right side M54.41 and Other chronic pain G89.29 [place] [address] [address] Jan, [facility] [place] [address] [address] Jan, Nausea & vomiting R11.2 [place] [address] [address] Dec, Irritable bowel syndrome with constipati on K58.1 ; Other chronic pain G89.29 and Pain in right shoulder M25.511 [facility] [address] [address] Dec, Generalized abdominal pain R 10.84 and Nausea and vomiting, intractability of vomiting not specified, unspecified vomiting type R11.2 [facility] [place] [id number] [place] [address] Dec, [place] [address] [address] Dec, Dysuria R30.0 and Irritable bowel K58.9 [facility] [address] [facility] [address] Sep, Chronic nausea R11.0 [place] [address] [address] Sep, [place] [address] [address] Sep, Viral gastroenteritis A08.4 [facility] [place] [id number] [address] [place] [address] Aug, Headache R51 ; Viral upper r espiratory tract infection J06.9 and Nausea R11.0 [facility] [address] [place] [address] Jun, Reflux gastritis K29.60 [facility] [address] [address] Jun, [facility] [address] [address] May, [facility] [address] [address] May, [facility] [address] [address] Apr, Bowel habit changes R19.4 and Acute cyst itis without hematuria N30.00 [facility] [address] [address] Apr, Pain in right shoulder M25.511 [facility] [address] [address] Apr, [facility] [address] [address] Mar, [facility] [address] [address] Mar, [facility] [address] [address] Mar, [facility] [address] [address] Mar, [facility] [address] [address] Feb, [facility] [address] [address] Feb, [facility] [address] [address] Feb, [facility] [address] [address] Jan, [facility] [address] [address] Dec, [facility] [address] [address] Dec, Other chronic pain G89.29 ; Pain in righ t shoulder M25.511 and Liver enzyme elevation R74.8 [place] [address] [address] Nov, Other chronic pain G89.29 and Pain in ri ght shoulder M25.511 [place] [address] [address] October, [facility] [address] [facility] [id number] [address] [place] [address] October, Right shoulder pain, unspeci fied chronicity M25.511 [place] [address] [address] Aug, Elevated liver enzymes R74.8 and Hyperli pidemia LDL goal <100 E78.5 [place] [address] [address] Aug, [place] [address] [address] Jul, [place] [address] [address] Jul, Intractable chronic migraine without aur a and with status migrainosus G43.711 ; Fever, unspecified fever cause R50.9 and Elevated liver enzymes R74.8 [place] [address] [address] Jun, Difficulty urinating R39.198 and Moderat e persistent asthma with exacerbation J45.41 [place] [address] [address] Jun, [address] [address] Jun, Moderate persistent asthma with exacerba tion J45.41 [place] [address] [address] May, Elevated liver enzymes R74.8 and Hyperli pidemia LDL goal <100 E78.5 [place] [address] [address] May, Elevated lipids E78.5 [facility] [address] [address] Apr, Elevated liver enzymes R74.8 [place] [address] [address] Apr, Elevated liver enzymes R74.8 [place] [address] [address] Apr, Superior glenoid labrum lesion of right shoulder, subsequent encounter S43.431D [place] [address] [address] Apr, Hypokalemia E87.6 ; Major depressive dis order, recurrent episode, moderate F33.1 ; Other abnormalities of breathing R06.89 and Dyspnea, unspecified R06.00 [facility] [address] [facility] [id number] [address] [place] [address] Mar, Moderate persistent asthma w [facility] complication J45.40 [place] [address] [address] Mar, Impingement syndrome of right shoulder M 75.41 [place] [address] [address] Jan, [place] [address] [address] Jan, Chronic migraine without aura with statu s migrainosus, not intractable G43.701 ; Essential hypertension I10 ; Irritable bowel K58.9 ; Primary insomnia F51.01 and Hypokalemia E87.6 [facility] [address] [address] Dec, [place] [address] [address] Dec, Pain in right shoulder M25.511 [facility] [address] [address] Dec, Essential hypertension I10 [facility] [address] [address] Dec, [facility] [address] [address] Nov, Essential hypertension I10 [facility] [address] [address] 14 Nov, 2016 Pain in right shoulder M25.511 [facility] [address] [address] Nov, Pain in right shoulder M25.511 [facility] [address] [address] October, [facility] [address] [address] October, Pain in right shoulder M25.511 [facility] [address] [address] Sep, Arm pain, right M79.601 [facility] [address] [address] Sep, [facility] [address] [address] Sep, Abnormal glucose R73.09 and Elevated lip ids E78.5 [facility] [address] [address] Sep, Abnormal glucose R73.09 and Elevated lip ids E78.5 [facility] [address] [address] Aug, [facility] [address] [address] Aug, [facility] [address] [address] Aug, [place] [address] [address] Aug, 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 ; Hypokalemia E87.6 ; Irritable bowel K58.9 ; Essential hypertension I10 ; Pain in right shoulder M25.511 ; Seizure disorder G40.909 and Screening for lipid disorders Z13.220 [place] [address] [address] Jul, Other chronic pain G89.29 and Pain in ri ght shoulder M25.511 [place] [address] [address] 14 Jul, 2016 Biceps muscle strain, right, subsequent encounter S46.111D [facility] [place] [address] [facility] [id number] [address] [place] [address] 08 Jul, 2016 Arm pain, right M79.601 [place] [address] [address] Jun, [place] [address] [address] Jun, Acute non-recurrent frontal sinusitis J0 1.10 [place] [address] [address] May, Generalized abdominal pain R10.84 ; Urin rohan tract infection without hematuria, site unspecified N39.0 ; Hypokalemia E87.6 ; Essential hypertension I10 ; Screening for lipid disorders Z13.220 ; Seizure R56.9 and Low back pain M54.5 [place] [address] [address] Apr, [facility] [place] [address] [facility] [id number] [address] [place] [address] Feb, [place] [address] [address] Jan, [place] [address] [address] Dec, 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 ; Hypokalemia E87.6 ; Irritable bowel K58.9 and Nausea R11.0 [facility] [address] [facility] [id number] [address] [place] [address] Dec, Generalized abdominal pain R 10.84 [place] [address] [address] Nov, [facility] [address] [place] [id number] [address] [place] [address] Aug, Acute bronchitis J20.9 [place] [address] [address] Aug, [place] [address] [address] Aug, Low back pain M54.5 ; Hypokalemia E87.6 ; Chronic migraine without aura with status migrainosus, not intractable G43.701 ; Tremor, hereditary, benign G25.0 ; Irritable bowel K58.9 ; Essential hypertension I10 and Seizure R56.9 [place] [address] [address] Aug, [place] [address] [address] Jul, [place] [address] [address] Jul, Low back pain M54.5 ; Hypokalemia E87.6 ; Chronic migraine without aura with status migrainosus, not intractable G43.701 ; Tremor, hereditary, benign G25.0 ; Irritable bowel K58.9 ; Essential hypertension I10 and Seizure R56.9 [place] [address] [address] Jun, Hypokalemia E87.6 [place] [address] [address] Jun, ADD (attention deficit disorder) without hyperactivity F90.0 ; Generalized anxiety disorder F41.1 and Major depressive disorder, recurrent episode, moderate F33.1 [place] [address] [address] Jun, Low back pain M54.5 ; Hypokalemia E87.6 ; Chronic migraine without aura with status migrainosus, not intractable G43.701 ; Tremor, hereditary, benign G25.0 ; Irritable bowel K58.9 ; Essential hypertension I10 and Seizure R56.9 [place] [address] [address] Jun, [place] [address] [address] May, [place] [address] [address] May, Low back pain M54.5 ; Hypokalemia E87.6 ; Chronic migraine without aura with status migrainosus, not intractable G43.701 ; Tremor, hereditary, benign G25.0 ; Irritable bowel K58.9 ; Essential hypertension I10 ; Seizure R56.9 and Tinea capitis B35.0 [place] [address] [address] May, Low back pain M54.5 ; Hypokalemia E87.6 ; Chronic migraine without aura with status migrainosus, not intractable G43.701 ; Tremor, hereditary, benign G25.0 ; Irritable bowel K58.9 ; Essential hypertension I10 ; Seizure R56.9 ; Otitis media, left H66.92 and Dysuria 788.1 [place] [address] [address] May, Tooth pain K08.8 [place] [address] [address] May, [place] [address] [address] May, Low back pain M54.5 ; Hypokalemia E87.6 ; Chronic migraine without aura with status migrainosus, not intractable G43.701 ; Tremor, hereditary, benign G25.0 ; Irritable bowel K58.9 and Essential hypertension I10 [facility] [address] [address] Apr, Low back pain M54.5 ; Hypokalemia E87.6 ; Chronic migraine without aura with status migrainosus, not intractable G43.701 ; Tremor, hereditary, benign G25.0 and Irritable bowel K58.9 [place] [address] [address] Apr, Low back pain M54.5 [place] [address] [address] Mar, [place] [address] [address] Mar, Irritable bowel syndrome with diarrhea K 58.0 [place] [address] [address] Mar, [place] [address] [address] Feb, [place] [address] [address] Feb, [place] [address] [address] Feb, Irritable bowel syndrome 564.1 ; Lumbago 724.2 and Cervical pain (neck) 723.1 [place] [address] [address] Dec, Major depressive disorder, recurrent epi sode, moderate 296.32 and Generalized anxiety disorder 300.02 [place] [address] [address] Nov, [facility] [address] [address] Nov, Major depressive disorder, recurrent epi sode, moderate 296.32 [facility] [address] [place] [id number] [place] [address] Nov, Constipation 564.00 ; Nausea & vomiting 787.01 and Abdominal pain 789.00 [facility] [address] [place] [id number] [place] [address] Nov, [facility] [address] [address] October, [facility] [address] [address] October, [facility] [address] [address] October, [facility] [address] [address] October, [facility] [address] [address] Sep, Dysuria 788.1 [facility] [address] [address] Sep, [facility] [address] [address] Sep, [facility] [address] [place] [id number] [place] [address] Sep, [facility] [address] [address] Sep, [facility] [address] [place] [id number] [place] [address] Aug, [facility] [address] [address] Aug, [facility] [address] [place] [id number] [place] [address] Aug, [facility] [address] [address] Aug, [facility] [address] [id number] [place] [address] Aug, [facility] [address] [id number] [place] [address] Aug, [facility] [address] [id number] [place] [address] Aug, [facility] [address] [id number] [place] [address] Aug, [facility] [address] [id number] [place] [address] Aug, [facility] [address] [id number] [place] [address] Aug, [facility] [address] [id number] [place] [address] Jun, [facility] [address] [id number] [place] [address] Jun, [facility] [address] [id number] [place] [address] Jun, [facility] [address] [id number] [place] [address] Jun, [facility] [address] [id number] [place] [address] May, [facility] [address] [id number] [place] [address] May, [facility] [address] [id number] [place] [address] May, [facility] [address] [id number] [place] [address] May, [facility] [address] [id number] [place] [address] May, [facility] [address] [id number] [place] [address] May, [facility] [address] [id number] [place] [address] May, [facility] [address] [facility] [id number] [place] [address] May, [facility] [address] [facility] [id number] [place] [address] Mar, [facility] [address] [id number] [place] [address] Mar, [facility] [address] [facility] [id number] [place] [address] Mar, [facility] [address] [facility] [id number] [place] [address] Mar, [facility] [address] [id number] [place] [address] Mar, [facility] [address] [id number] [place] [address] Mar, [facility] [address] [id number] [place] [address] Mar, [facility] [address] [id number] [place] [address] Mar, [facility] [address] [id number] [place] [address] Mar, [facility] [address] [id number] [place] [address] Mar, [facility] [address] [id number] [place] [address] Mar, [facility] [address] [facility] [id number] [place] [address] Mar, [facility] [address] [facility] [id number] [place] [address] Feb, [facility] [address] [facility] [id number] [place] [address] Feb, [facility] [address] [id number] [place] [address] Feb, [facility] [address] [id number] [place] [address] Feb, [facility] [address] [id number] [facility], [place] [address] Feb, [facility] [address] [facility] [id number] [place] [address] Feb, [facility] [address] [id number] [facility], [place] [address] Jan, [facility] [address] [facility] [id number] [facility], [place] [address] Jan, [facility] [address] [id number] [place] [address] Jan, [facility] [address] [id number] [place] [address] Jan, [facility] [address] [id number] [place] [address] Jan, [facility] [address] [id number] [place] [address] Jan, [facility] [address] [facility] [id number] [place] [address] Jan, [facility] [address] [id number] [place] [address] Jan, [facility] [address] [id number] [place] [address] Dec, [facility] [address] [id number] [place] [address] Dec, [facility] [address] [facility] [id number] [place] [address] Dec, [facility] [address] [id number] [place] [address] Dec, [facility] [address] [id number] [place] [address] Dec, [facility] [address] [id number] [place] [address] Dec, [facility] [address] [id number] [place] [address] Dec, [facility] [address] [id number] [place] [address] Dec, [facility] [address] [id number] [place] [address] October, [facility] [address] [id number] [place] [address] October, [facility] [address] [id number] [place] [address] Sep, [facility] [address] [id number] [place] [address] Sep, [facility] [address] [id number] [place] [address] Sep, [facility] [address] [id number] [place] [address] Sep, [facility] [address] [facility] [id number] [place] [address] Sep, [facility] [address] [id number] [place] [address] Sep, [facility] [address] [id number] [place] [address] Sep, [facility] [address] [id number] [place] [address] Sep, [facility] [address] [id number] [place] [address] Sep, [facility] [address] [id number] [place] [address] Sep, [facility] [address] [id number] [place] [address] Sep, [facility] [address] [id number] [place] [address] Sep, [facility] [address] [id number] [place] [address] Aug, [facility] [address] [facility] [id number] [place] [address] Aug, [facility] [address] [facility] [id number] [place] [address] Aug, [facility] [address] [id number] [place] [address] Jun, [facility] [address] [id number] [place] [address] Jun, [facility] [address] [facility] [id number] [place] [address] Jun, [facility] [address] [id number] [place] [address] Jun, [facility] [address] [id number] [place] [address] Jun, [facility] [address] [id number] [place] [address] Jun, [facility] [address] [id number] [place] [address] Jun, [facility] [address] [id number] [place] [address] Jun, [facility] [address] [id number] [place] [address] Jun, [facility] [address] [id number] [place] [address] Jun, [facility] [address] [id number] [place] [address] May, [facility] [address] [id number] [place] [address] May, [facility] [address] [id number] [place] [address] May, [facility] [address] [id number] [place] [address] May, [facility] [address] [id number] [place] [address] Apr, [facility] [address] [id number] [place] [address] Apr, [facility] [address] [id number] [place] [address] Apr, [facility] [address] [id number] [place] [address] Apr, [facility] [address] [id number] [place] [address] Apr, [facility] [address] [id number] [place] [address] Apr, [facility] [address] [id number] [place] [address] Apr, [facility] [address] [id number] [place] [address] Apr, [facility] [address] [id number] [place] [address] Mar, [facility] [address] [id number] [place] [address] Mar, [facility] [address] [id number] [place] [address] Mar, [facility] [address] [id number] [place] [address] Mar, [facility] [address] [id number] [place] [address] Mar, [facility] [address] [id number] [place] [address] Feb, [facility] [id number] [place] [address] Feb, [facility] [address] [id number] [place] [address] 05 Feb, 2013 [facility] [address] [id number] [place] [address] Feb, [facility] [address] [id number] [place] [address] Feb, [facility] [address] [id number] [place] [address] Jan, [facility] [address] [id number] [place] [address] Jan, [facility] [address] [id number] [place] [address] Nov, [facility] [address] [id number] [place] [address] Nov, [facility] [address] [id number] [place] [address] Nov, [facility] [address] [id number] [place] [address] Nov, [facility] [address] [id number] [place] [address] October, [facility] [address] [id number] [place] [address] Sep, [facility] [address] [id number] [place] [address] Aug, [facility] [address] [id number] [place] [address] Aug, [facility] [address] [id number] [place] [address] Aug, [facility] [address] [id number] [place] [address] Aug, [facility] [address] [id number] [place] [address] Jul, [facility] [address] [id number] [place] [address] Jun, [facility] [address] [id number] [place] [address] Jun, [facility] [address] [id number] [place] [address] May, 2011 [facility] [address] [facility] [id number] [place] [address] May, 2011 [facility] [address] [facility] [id number] [place] [id number] Mar, [facility] [address] [facility] [id number] [place] [address] Mar, [facility] [address] [id number] [place] [address] Mar, [facility] [address] [facility] [id number] [place] [address] Mar, [facility] [address] [id number] [place] [address] Mar, [facility] [address] [id number] [place] [address] Mar, [facility] [address] [id number] [place] [address] Mar, [facility] [address] [id number] [place] [address] Mar, [facility] [address] [id number] [place] [address] Mar, [facility] [address] [id number] [place] [address] Mar, [facility] [address] [id number] [place] [address] Mar, [facility] [address] [facility] [id number] [place] [address] Mar, 2011 [facility] [address] [facility] [id number] [place] [address] Mar, 2011 [facility] [address] [id number] [place] [address] 15 Mar, 2012 [facility] [address] [id number] [place] [address] Mar, [facility] [address] [id number] [place] [address] 15 Mar, 2012 [facility] [address] [id number] [place] [address] 15 Mar, 2012 [facility] [address] [id number] [place] [address] Mar, [facility] [address] [id number] [place] [address] Mar, [facility] [address] [id number] [place] [address] 08 Mar, 2012 [facility] [address] [id number] [place] [address] 08 Mar, 2012 [facility] [address] [id number] [place] [address] 03 Mar, 2012 [facility] [address] [id number] [place] [address] Mar, [facility] [address] [id number] [place] [address] 19 Feb, 2011 [facility] [address] [id number] [place] [address] 18 Sep2011 [facility] [address] [id number] [place] [address] 17 Feb, 2012 [facility] [address] [id number] [place] [address] 14 Feb, 2011 [facility] [address] [id number] [place] [address] 14 Feb, 2011 [facility] [address] [id number] [place] [address] 12 Feb, 2011 [facility] [address] [id number] [place] [address] 10 Feb, 2012 [facility] [address] [id number] [place] [address] 31 Jan, 2012 [facility] [address] [id number] [place] [address] 30 Jan, 2012 [facility] [address] [id number] [place] [address] Jan, [facility] [address] [id number] [facility] [place] [address] Jan, [facility] [address] [id number] [place] [address] Jan, [facility] [address] [id number] [facility] [place] [address] Jan, [facility] [address] [facility] [id number] [place] [address] Jan, [facility] [address] [id number] [place] [address] Jan, [facility] [address] [id number] [place] [address] Jan, [facility] [address] [id number] [place] [address] Jan, [facility] [address] [id number] [place] [address] 26 Dec, 2011 [facility] [address] [id number] [place] [address] 24 Dec, 2011 [facility] [address] [id number] [place] [address] Dec, [facility] [address] [id number] [place] [address] Dec, [facility] [address] [id number] [place] [address] 18 Dec, 2011 [facility] [address] [facility] [id number] [place] [address] 17 Dec, 2011 [facility] [address] [id number] [place] [address] 16 Dec, 2011 [facility] [address] [id number] [place] [address] 14 Dec, 2011 [facility] [address] [id number] [place] [address] Dec, [facility] [id number] [place] [address] Dec, [facility] [id number] [place] [address] Dec, [facility] [id number] [place] [address] Nov, [facility] [address] [address] Nov, [facility] [address] [address] Nov, [facility] [address] [address] Nov, [facility] [address] [address] Nov, [facility] [address] [address] Nov, [facility] [address] [address] Nov, [facility] [address] [address] Nov, [facility] [address] [address] Nov, [facility] [address] [address] Nov, [facility] [address] [address] October, IMMUNIZATIONS No Known Immunizations SOCIAL HISTORY [...]
--- OUTSIDE RECORDS SUMMARY | 2019-11-15 09:43 | XMS REPORT ---
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 Name Role Phone Migration, Doctor Unavailable Unavailable PROBLEMS Type Condition ICD9-CM Code WWS58-ZV Code Onset Dates Condition S tatus SNOMED Code Problem Abnormal glucose R73.09 Active 102 419892 Problem Hyperlipidemia LDL goal <100 E78.5 A ctive 32102824 Problem Elevated liver enzymes R74.8 Active 286412421 Problem Intractable chronic migraine without aura and wi th status migrainosus G43.711 Active 082331229 Problem Moderate persistent asthma with exacerbation J45.4 1 Active 900535682 Problem Hypokalemia E87.6 Active 15213628 Problem Chronic migraine without aura with statu s migrainosus, not intractable G43.701 Active 825356478 Problem 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 Active 25100465 Problem Essential hypertension I10 Active 92412909 Problem Seizure disorder G40.909 Active 128 677800 Problem Other chronic pain G89.29 Active 8 1996255 Problem Moderate persistent asthma without complication J4 5.40 Active 793802599 Problem Primary insomnia F51.01 Active 397 2004 Problem Other chronic pain G89.29 Active 8 2079722 Problem Reflux gastritis K29.60 Active 729 54741 Problem Irritable bowel syndrome with constipation K58.1 Active 965956370 Problem Aneurysm I72.9 Active 49635506 Problem Tremor, hereditary, benign G25.0 Act caitlin 075351104 Problem Migraine with aura and without status migrainosu s, not intractable G43.109 Active 0124105 Problem Major depressive disorder, recurrent episode, moderate F33.1 Active 373403385 Problem Irritable bowel K58.9 Active 1074 3008 Problem Lumbago with sciatica, left side M54.42 Active 668914726 Problem Lumbago with sciatica, right side M54.41 Active 511708763941814 Problem Mood disorder F39 Active 411201 05 Problem RLS (restless legs syndrome) G25.81 A ctive [id number] ALLERGIES No Information ENCOUNTERS Encounter Location Date Diagnosis [facility] [address] [address] Jul, [facility] [address] [address] Jun, [facility] [address] [address] Jun, Seizures R56.9 ; Migraine with aura and without status migrainosus, not intractable G43.109 ; Other chronic pain G89.29 and Pain in right shoulder M25.511 [place] [address] [address] Jun, [place] [address] [address] May, Primary insomnia F51.01 ; Intractable ch ronic migraine without aura and with status migrainosus G43.711 and Aneurysm I72.9 [place] [address] [address] Apr, RLS (restless legs syndrome) G25.81 and Mood disorder F39 [place] [address] [address] Apr, [place] [address] [address] Mar, Other chronic pain G89.29 and Pain in ri ght shoulder M25.511 [place] [address] [address] Mar, Acute left ankle pain M25.572 [place] [address] [address] Mar, [place] [address] [address] Mar, Acute left ankle pain M25.572 [place] [address] [address] Mar, Major depressive disorder, recurrent epi sode, moderate F33.1 [place] [address] [address] Mar, Major depressive disorder, recurrent epi sode, moderate F33.1 ; Lumbago with sciatica, left side M54.42 and Lumbago with sciatica, right side M54.41 [place] [address] [address] Mar, [place] [address] [address] Mar, [place] [address] [address] Mar, Major depressive disorder, recurrent epi sode, moderate F33.1 ; Lumbago with sciatica, left side M54.42 and Lumbago with sciatica, right side M54.41 [place] [address] [address] Feb, Viral gastroenteritis A08.4 [facility] [place] [facility] [place] [id number] [place] [address] Feb, Nausea and vomiting, intract ability of vomiting not specified, unspecified vomiting type R11.2 [place] [address] [address] Feb, [place] [address] [address] Feb, [place] [address] [address] Feb, C. difficile colitis A04.72 ; Mood disor dionicio F39 ; Lumbago with sciatica, left side M54.42 ; Lumbago with sciatica, right side M54.41 and Other chronic pain G89.29 [place] [address] [address] Jan, [facility] [address] [place] [id number] [place] [address] Jan, Nausea & vomiting R11.2 [facility] [address] [address] Dec, Irritable bowel syndrome with constipati on K58.1 ; Other chronic pain G89.29 and Pain in right shoulder M25.511 [facility] [address] [address] Dec, Generalized abdominal pain R 10.84 and Nausea and vomiting, intractability of vomiting not specified, unspecified vomiting type R11.2 [facility] [place] [address] [address] Dec, [place] [address] [address] Dec, Dysuria R30.0 and Irritable bowel K58.9 [facility] [address] [id number] [address] Sep, Chronic nausea R11.0 [place] [address] [address] Sep, [place] [address] [address] Sep, Viral gastroenteritis A08.4 [facility] [place] [id number] [place] [address] Aug, Headache R51 ; Viral upper r espiratory tract infection J06.9 and Nausea R11.0 [facility] [place] [address] [address] [place] [id number] [place] [address] Jun, Reflux gastritis K29.60 [place] [address] [address] Jun, [place] [address] [address] May, [place] [address] [address] May, [facility] [address] [address] Apr, Bowel habit changes R19.4 and Acute cyst itis without hematuria N30.00 [facility] [address] [address] Apr, Pain in right shoulder M25.511 [facility] [address] [address] Apr, [facility] [address] [address] Mar, [facility] [address] [address] Mar, [facility] [address] [address] Mar, [facility] [address] [address] Mar, [facility] [address] [address] Feb, [facility] [address] [address] Feb, [facility] [address] [address] Feb, [facility] [address] [address] Jan, [facility] [address] [address] Dec, [facility] [address] [address] Dec, Other chronic pain G89.29 ; Pain in righ t shoulder M25.511 and Liver enzyme elevation R74.8 [facility] [address] [address] Nov, Other chronic pain G89.29 and Pain in ri ght shoulder M25.511 [facility] [address] [place] [address] [place] [address] October, [facility] [address] [facility] [id number] [address] [place] [address] October, Right shoulder pain, unspeci fied chronicity M25.511 [facility] [address] [id number] [place] [address] Aug, Elevated liver enzymes R74.8 and Hyperli pidemia LDL goal <100 E78.5 [place] [address] [place] [id number] [place] [address] Aug, [place] [address] [address] Jul, [facility] [address] [place] [id number] [place] [address] Jul, Intractable chronic migraine without aur a and with status migrainosus G43.711 ; Fever, unspecified fever cause R50.9 and Elevated liver enzymes R74.8 [place] [address] [place] [id number] [place] [address] Jun, Difficulty urinating R39.198 and Moderat e persistent asthma with exacerbation J45.41 [place] [address] [place] [id number] [place] [address] Jun, [place] [address] [address] Jun, Moderate persistent asthma with exacerba tion J45.41 [place] [address] [place] [id number] [place] [address] May, Elevated liver enzymes R74.8 and Hyperli pidemia LDL goal <100 E78.5 [place] [address] [place] [id number] [place] [address] May, Elevated lipids E78.5 [place] [address] [place] [id number] [place] [address] Apr, Elevated liver enzymes R74.8 [place] [address] [address] Apr, Elevated liver enzymes R74.8 [place] [address] [address] Apr, Superior glenoid labrum lesion of right shoulder, subsequent encounter S43.431D [place] [address] [address] Apr, Hypokalemia E87.6 ; Major depressive dis order, recurrent episode, moderate F33.1 ; Other abnormalities of breathing R06.89 and Dyspnea, unspecified R06.00 [facility] [address] [facility] [id number] [address] [place] [address] Mar, Moderate persistent asthma w [facility] complication J45.40 [place] [address] [address] Mar, Impingement syndrome of right shoulder M 75.41 [place] [address] [address] Jan, [place] [address] [address] Jan, Chronic migraine without aura with statu s migrainosus, not intractable G43.701 ; Essential hypertension I10 ; Irritable bowel K58.9 ; Primary insomnia F51.01 and Hypokalemia E87.6 [place] [address] [address] Dec, [place] [address] [address] Dec, Pain in right shoulder M25.511 [place] [address] [address] Dec, Essential hypertension I10 [place] [address] [address] Dec, [place] [address] [address] Nov, Essential hypertension I10 [place] [address] [address] 14 Nov, 2016 Pain in right shoulder M25.511 [place] [address] [address] 13 Nov, 2016 Pain in right shoulder M25.511 [place] [address] [address] October, [place] [address] [address] October, Pain in right shoulder M25.511 [place] [address] [address] Sep, Arm pain, right M79.601 [place] [address] [address] Sep, [place] [address] [address] Sep, Abnormal glucose R73.09 and Elevated lip ids E78.5 [place] [address] [address] Sep, Abnormal glucose R73.09 and Elevated lip ids E78.5 [place] [address] [address] Aug, [place] [address] [address] Aug, [place] [address] [address] Aug, [place] [address] [address] Aug, 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 ; Hypokalemia E87.6 ; Irritable bowel K58.9 ; Essential hypertension I10 ; Pain in right shoulder M25.511 ; Seizure disorder G40.909 and Screening for lipid disorders Z13.220 [place] [address] [address] 28 Jul, 2016 Other chronic pain G89.29 and Pain in ri ght shoulder M25.511 [place] [address] [address] 14 Jul, 2016 Biceps muscle strain, right, subsequent encounter S46.111D [facility] [place] [address] [address] [place] [id number] [place] [address] 08 Jul, 2016 Arm pain, right M79.601 [place] [address] [address] 30 Jun, 2016 [place] [address] [address] Jun, Acute non-recurrent frontal sinusitis J0 1.10 [place] [address] [address] 14 May, 2016 Generalized abdominal pain R10.84 ; Urin rohan tract infection without hematuria, site unspecified N39.0 ; Hypokalemia E87.6 ; Essential hypertension I10 ; Screening for lipid disorders Z13.220 ; Seizure R56.9 and Low back pain M54.5 [place] [address] [address] Apr, [facility] [place] [address] [place] [id number] [place] [address] Feb, [place] [address] [address] Jan, [place] [address] [address] Dec, 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 ; Hypokalemia E87.6 ; Irritable bowel K58.9 and Nausea R11.0 [facility] [place] [address] [address] [place] [id number] [place] [address] 18 Dec, 2015 Generalized abdominal pain R 10.[address] [address] Nov, [facility] [address] [facility] [id number] [address] [place] [address] Aug, Acute bronchitis J20.9 [place] [address] [address] Aug, [place] [address] [address] Aug, Low back pain M54.5 ; Hypokalemia E87.6 ; Chronic migraine without aura with status migrainosus, not intractable G43.701 ; Tremor, hereditary, benign G25.0 ; Irritable bowel K58.9 ; Essential hypertension I10 and Seizure R56.9 [place] [address] [address] Aug, [place] [address] [address] Jul, [place] [address] [address] Jul, Low back pain M54.5 ; Hypokalemia E87.6 ; Chronic migraine without aura with status migrainosus, not intractable G43.701 ; Tremor, hereditary, benign G25.0 ; Irritable bowel K58.9 ; Essential hypertension I10 and Seizure R56.9 [place] [address] [address] Jun, Hypokalemia E87.6 [place] [address] [address] Jun, ADD (attention deficit disorder) without hyperactivity F90.0 ; Generalized anxiety disorder F41.1 and Major depressive disorder, recurrent episode, moderate F33.1 [place] [address] [address] Jun, Low back pain M54.5 ; Hypokalemia E87.6 ; Chronic migraine without aura with status migrainosus, not intractable G43.701 ; Tremor, hereditary, benign G25.0 ; Irritable bowel K58.9 ; Essential hypertension I10 and Seizure R56.9 [place] [address] [address] Jun, [place] [address] [address] May, [place] [address] [address] May, Low back pain M54.5 ; Hypokalemia E87.6 ; Chronic migraine without aura with status migrainosus, not intractable G43.701 ; Tremor, hereditary, benign G25.0 ; Irritable bowel K58.9 ; Essential hypertension I10 ; Seizure R56.9 and Tinea capitis B35.0 [place] [address] [address] 17 May, 2015 Low back pain M54.5 ; Hypokalemia E87.6 ; Chronic migraine without aura with status migrainosus, not intractable G43.701 ; Tremor, hereditary, benign G25.0 ; Irritable bowel K58.9 ; Essential hypertension I10 ; Seizure R56.9 ; Otitis media, left H66.92 and Dysuria 788.1 [place] [address] [address] 14 May, 2015 Tooth pain K08.8 [place] [address] [address] May, [place] [address] [address] May, Low back pain M54.5 ; Hypokalemia E87.6 ; Chronic migraine without aura with status migrainosus, not intractable G43.701 ; Tremor, hereditary, benign G25.0 ; Irritable bowel K58.9 and Essential hypertension I10 [place] [address] [address] Apr, Low back pain M54.5 ; Hypokalemia E87.6 ; Chronic migraine without aura with status migrainosus, not intractable G43.701 ; Tremor, hereditary, benign G25.0 and Irritable bowel K58.9 [place] [address] [address] Apr, Low back pain M54.5 [place] [address] [address] Mar, [place] [address] [address] Mar, Irritable bowel syndrome with diarrhea K 58.0 [place] [address] [address] Mar, [place] [address] [address] Feb, [place] [address] [address] Feb, [address] [address] Feb, Irritable bowel syndrome 564.1 ; Lumbago 724.2 and Cervical pain (neck) 723.[address] [address] Dec, Major depressive disorder, recurrent epi sode, moderate 296.32 and Generalized anxiety disorder 300.02 [place] [address] [address] Nov, [address] [address] Nov, Major depressive disorder, recurrent epi sode, moderate 296.[address] [address] Nov, Constipation 564.00 ; Nausea & vomiting 787.01 and Abdominal pain 789.00 [place] [address] [address] Nov, [address] [address] October, [facility] [address] [facility] [id number] [place] [address] October, [facility] [address] [id number] [place] [address] October, [facility] [address] [id number] [place] [address] October, [facility] [address] [id number] [place] [address] Sep, Dysuria 788.1 [facility] [address] [id number] [place] [address] Sep, [facility] [address] [id number] [place] [address] Sep, [facility] [address] [id number] [place] [address] Sep, [facility] [address] [id number] [place] [address] Sep, [facility] [address] [id number] [place] [address] Aug, [facility] [address] [id number] [place] [address] Aug, [facility] [address] [id number] [place] [address] Aug, [facility] [address] [id number] [place] [address] Aug, [facility] [address] [id number] [place] [address] Aug, [facility] [address] [id number] [place] [address] Aug, [facility] [address] [id number] [place] [address] Aug, [facility] [address] [id number] [place] [address] Aug, [facility] [address] [id number] [place] [address] Aug, 2014 [facility] [address] [id number] [place] [address] Aug, [facility] [address] [id number] [place] [address] Jun, [facility] [address] [id number] [place] [address] Jun, [facility] [address] [id number] [place] [address] Jun, [facility] [address] [id number] [place] [address] Jun, [facility] [address] [id number] [place] [address] May, [facility] [address] [id number] [place] [address] May, [facility] [address] [id number] [place] [address] May, [facility] [address] [id number] [place] [address] May, [facility] [address] [id number] [place] [address] May, [facility] [address] [id number] [place] [address] May, [facility] [address] [id number] [place] [address] May, [facility] [address] [id number] [place] [address] May, [facility] [address] [id number] [place] [address] Mar, [facility] [address] [id number] [place] [address] Mar, [facility] [address] [id number] [place] [address] Mar, [facility] [address] [facility] [id number] [place] [address] Mar, [facility] [address] [facility] [id number] [place] [address] Mar, [facility] [address] [facility] [id number] [place] [address] Mar, [facility] [address] [facility] [id number] [place] [address] Mar, [facility] [address] [facility] [id number] [place] [address] Mar, [facility] [address] [facility] [id number] [place] [address] Mar, [facility] [address] [id number] [place] [address] Mar, [facility] [address] [id number] [place] [address] Mar, [facility] [address] [facility] [id number] [place] [address] Mar, [facility] [address] [id number] [place] [address] Feb, [facility] [address] [id number] [place] [address] Feb, [facility] [address] [id number] [place] [address] Feb, [facility] [address] [facility] [id number] [place] [address] Feb, 2013 [facility] [address] [facility] [id number] [place] [address] Feb, [facility] [address] [facility] [id number] [place] [address] Feb, [facility] [address] [id number] [place] [address] Jan, [facility] [address] [id number] [place] [address] Jan, [facility] [address] [id number] [place] [address] Jan, [facility] [address] [facility] [id number] [place] [address] Jan, [facility] [address] [id number] [place] [address] Jan, [facility] [address] [facility] [id number] [place] [address] Jan, [facility] [address] [id number] [place] [address] Jan, [facility] [address] [id number] [place] [address] Jan, [facility] [address] [id number] [place] [address] Dec, [facility] [address] [id number] [place] [address] Dec, [facility] [address] [facility] [id number] [place] [address] Dec, [facility] [address] [id number] [place] [address] Dec, [facility] [address] [id number] [place] [address] Dec, [facility] [address] [id number] [place] [address] Dec, [facility] [address] [facility] [id number] [place] [address] Dec, [facility] [address] [id number] [place] [address] Dec, [facility] [address] [id number] [place] [address] October, [facility] [address] [id number] [place] [address] October, [facility] [address] [id number] [place] [address] Sep, [facility] [address] [id number] [place] [address] Sep, [facility] [address] [id number] [place] [address] Sep, [facility] [address] [id number] [place] [address] Sep, [facility] [address] [id number] [place] [address] Sep, [facility] [address] [id number] [place] [address] Sep, [facility] [address] [id number] [place] [address] Sep, [facility] [address] [id number] [place] [address] Sep, [facility] [address] [id number] [place] [address] Sep, [facility] [address] [id number] [place] [address] Sep, [facility] [address] [id number] [place] [address] Sep, [facility] [address] [id number] [place] [address] Sep, [facility] [address] [id number] [place] [address] Aug, [facility] [address] [id number] [place] [address] Aug, [facility] [address] [id number] [place] [address] Aug, [facility] [address] [id number] [place] [address] Jun, [facility] [address] [id number] [place] [address] 14 Jun, 2013 [facility] [address] [id number] [place] [address] Jun, [facility] [address] [id number] [place] [address] Jun, [facility] [address] [id number] [place] [address] Jun, [facility] [address] [id number] [place] [address] Jun, [facility] [address] [id number] [place] [address] Jun, [facility] [address] [id number] [place] [address] Jun, [facility] [address] [id number] [place] [address] Jun, [facility] [address] [id number] [place] [address] Jun, [facility] [address] [id number] [place] [address] May, [facility] [address] [id number] [place] [address] May, [facility] [address] [id number] [place] [address] May, [facility] [address] [id number] [place] [address] May, [facility] [address] [id number] [place] [address] Apr, [facility] [address] [id number] [place] [address] Apr, [facility] [address] [id number] [place] [address] Apr, [facility] [address] [id number] [place] [address] Apr, [facility] [address] [id number] [place] [address] Apr, [facility] [address] [id number] [place] [address] Apr, [facility] [address] [id number] [place] [address] Apr, [facility] [address] [id number] [place] [address] Apr, [facility] [address] [id number] [place] [address] Mar, [facility] [address] [id number] [place] [address] Mar, [facility] [address] [id number] [place] [address] Mar, [facility] [address] [id number] [place] [address] Mar, [facility] [address] [id number] [place] [address] Mar, [facility] [address] [id number] [place] [address] Feb, [facility] [address] [id number] [place] [address] Feb, [facility] [address] [id number] [place] [address] Feb, [facility] [address] [id number] [place] [address] Feb, [facility] [address] [id number] [place] [address] Feb, [facility] [address] [id number] [place] [address] Jan, [facility] [address] [id number] [place] [address] Jan, [facility] [address] [id number] [place] [address] Nov, [facility] [address] [id number] [place] [address] Nov, [facility] [address] [id number] [place] [address] Nov, [facility] [address] [id number] [place] [address] Nov, [facility] [address] [id number] [place] [address] October, [facility] [address] [id number] [place] [address] Sep, [facility] [address] [id number] [place] [address] Aug, [facility] [address] [id number] [place] [address] Aug, [facility] [address] [id number] [place] [address] Aug, [facility] [address] [id number] [place] [address] Aug, [facility] [address] [id number] [place] [address] Jul, [facility] [address] [id number] [place] [address] Jun, [facility] [address] [id number] [place] [address] Jun, [facility] [address] [id number] [place] [address] May, [facility] [address] [facility] [id number] [place] [address] May, [facility] [address] [facility] [id number] [place] [id number] Mar, [facility] [address] [id number] [place] [address] Mar, [facility] [address] [id number] [place] [address] 24 Mar, 2011 [facility] [address] [facility] [id number] [place] [address] 24 Mar, 2011 [facility] [address] [facility] [id number] [place] [address] Mar, 2011 [facility] [address] [id number] [place] [address] Mar, 2011 [facility] [address] [facility] [id number] [place] [address] Mar, 2011 [facility] [address] [facility] [id number] [place] [address] Mar, 2011 [facility] [address] [id number] [place] [address] Mar, 2011 [facility] [address] [id number] [place] [address] Mar, 2011 [facility] [address] [id number] [place] [address] 20 Mar, 2011 [facility] [address] [facility] [id number] [place] [address] 17 Mar, 2011 [facility] [address] [id number] [place] [address] 17 Mar, 2011 [facility] [address] [id number] [place] [address] 15 Mar, 2011 [facility] [address] [id number] [place] [address] 15 Mar, 2011 [facility] [address] [facility] [id number] [place] [address] 15 Mar, 2011 [facility] [address] [facility] [id number] [place] [address] 15 Mar, 2011 [facility] [address] [facility] [id number] [place] [address] 11 Mar, 2011 [facility] [address] [id number] [place] [address] 11 Mar, 2011 [facility] [address] [facility] [id number] [place] [address] 08 Mar, 2012 [facility] [address] [id number] [place] [address] 08 Mar, 2012 [facility] [address] [id number] [place] [address] Mar, [facility] [address] [id number] [place] [address] Mar, [facility] [address] [id number] [place] [address] 19 Feb, 2012 [facility] [address] [id number] [place] [address] 18 Feb, 2012 [facility] [address] [id number] [place] [address] 17 Feb, 2012 [facility] [address] [id number] [place] [address] 14 Feb, 2012 [facility] [address] [id number] [place] [address] 14 Feb, 2012 [facility] [address] [id number] [place] [address] 12 Feb, 2012 [facility] [address] [id number] [place] [address] 10 Feb, 2012 [facility] [address] [id number] [place] [address] 31 Jan, 2012 [facility] [address] [id number] [place] [address] 30 Jan, 2012 [facility] [address] [id number] [place] [address] 22 Jan, 2012 [facility] [address] [id number] [place] [address] Jan, [facility] [address] [id number] [place] [address] Jan, [facility] [address] [id number] [place] [address] Jan, [facility] [address] [id number] [place] [address] Jan, [facility] [address] [id number] [place] [address] 16 Jan, 2012 [facility] [address] [id number] [place] [address] Jan, [facility] [address] [id number] [place] [address] Jan, [facility] [address] [id number] [place] [address] Dec, [facility] [address] [id number] [place] [address] Dec, [facility] [address] [id number] [place] [address] Dec, [facility] [address] [id number] [place] [address] Dec, [facility] [address] [id number] [place] [address] Dec, [facility] [address] [id number] [place] [address] Dec, [facility] [address] [id number] [place] [address] 16 Dec, 2011 [facility] [address] [id number] [place] [address] Dec, [facility] [address] [id number] [place] [address] Dec, [facility] [address] [id number] [place] [address] Dec, [facility] [address] [id number] [place] [address] Dec, [facility] [address] [id number] [place] [address] Nov, [facility] [address] [id number] [place] [address] Nov, [facility] [id number] [place] [address] Nov, [facility] [address] [address] Nov, [facility] [address] [address] Nov, [facility] [address] [address] Nov, [facility] [address] [address] Nov, [facility] [address] [address] Nov, [facility] [address] [address] Nov, [facility] [address] [address] Nov, [facility] [address] [address] October, IMMUNIZATIONS No Known Immunizations SOCIAL HISTORY [...]
--- OUTSIDE RECORDS SUMMARY | 2019-11-15 09:43 | XMS REPORT ---
Author Author Maggy Ballesteros Doctor Organization [facility] Address Unknown Phone Unavailable Care Team Providers Care Leveling Machine Operator Name Role Phone Migration, Doctor Unavailable Unavailable PROBLEMS Type Condition ICD9-CM Code [id number] Code Onset Dates Condition S tatus SNOMED Code Problem Abnormal glucose R73.09 Active 102 516304 Problem Hyperlipidemia LDL goal <100 E78.5 A ctive 06676304 Problem Elevated liver enzymes R74.8 Active 807749013 Problem Intractable chronic migraine without aura and wi th status migrainosus G43.711 Active 876764094 Problem Moderate persistent asthma with exacerbation J45.4 1 Active 525914579 Problem Hypokalemia E87.6 Active 19638334 Problem Chronic migraine without aura with statu s migrainosus, not intractable G43.701 Active 734050939 Problem 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 Active 27824814 Problem Essential hypertension I10 Active 75391730 Problem Seizure disorder G40.909 Active 128 618568 Problem Other chronic pain G89.29 Active 8 9552640 Problem Moderate persistent asthma without complication J4 5.40 Active 853435514 Problem Primary insomnia F51.01 Active 397 2004 Problem Other chronic pain G89.29 Active 8 4417340 Problem Reflux gastritis K29.60 Active 729 02766 Problem Irritable bowel syndrome with constipation K58.1 Active 746246746 Problem Aneurysm I72.9 Active 99648020 Problem Tremor, hereditary, benign G25.0 Act caitlin 985929938 Problem Migraine with aura and without status migrainosu s, not intractable G43.109 Active 2148715 Problem Major depressive disorder, recurrent episode, moderate F33.1 Active 961355368 Problem Irritable bowel K58.9 Active 1074 3008 Problem Lumbago with sciatica, left side M54.42 Active 867924293 Problem Lumbago with sciatica, right side M54.41 Active 438881068337007 Problem Mood disorder F39 Active 833341 05 Problem RLS (restless legs syndrome) G25.81 A ctive [id number] ALLERGIES No Information ENCOUNTERS Encounter Location Date Diagnosis [facility] [address] [address] Jun, [place] [address] [address] Jun, Seizures R56.9 ; Migraine with aura and without status migrainosus, not intractable G43.109 ; Other chronic pain G89.29 and Pain in right shoulder M25.511 [place] [address] [address] Jun, [place] [address] [address] May, Primary insomnia F51.01 ; Intractable ch ronic migraine without aura and with status migrainosus G43.711 and Aneurysm I72.9 [place] [address] [address] Apr, RLS (restless legs syndrome) G25.81 and Mood disorder F39 [place] [address] [address] Apr, [place] [address] [address] Mar, Other chronic pain G89.29 and Pain in ri ght shoulder M25.511 [place] [address] [address] Mar, Acute left ankle pain M25.572 [place] [address] [address] Mar, [place] [address] [address] Mar, Acute left ankle pain M25.572 [place] [address] [address] Mar, Major depressive disorder, recurrent epi sode, moderate F33.1 [place] [address] [address] Mar, Major depressive disorder, recurrent epi sode, moderate F33.1 ; Lumbago with sciatica, left side M54.42 and Lumbago with sciatica, right side M54.41 [facility] [address] [address] Mar, [facility] [address] [address] Mar, [place] [address] [address] Mar, Major depressive disorder, recurrent epi sode, moderate F33.1 ; Lumbago with sciatica, left side M54.42 and Lumbago with sciatica, right side M54.41 [place] [address] [address] Feb, Viral gastroenteritis A08.4 [facility] [address] [place] [id number] [place] [address] Feb, Nausea and vomiting, intract ability of vomiting not specified, unspecified vomiting type R11.2 [place] [address] [address] Feb, [place] [address] [address] Feb, [place] [address] [address] Feb, C. difficile colitis A04.72 ; Mood disor dionicio F39 ; Lumbago with sciatica, left side M54.42 ; Lumbago with sciatica, right side M54.41 and Other chronic pain G89.29 [place] [address] [address] Jan, [facility] [address] [facility] [id number] [address] [place] [address] Jan, Nausea & vomiting R11.2 [place] [address] [address] Dec, Irritable bowel syndrome with constipati on K58.1 ; Other chronic pain G89.29 and Pain in right shoulder M25.511 [facility] [place] [address] [place] [id number] [place] [address] Dec, Generalized abdominal pain R 10.84 and Nausea and vomiting, intractability of vomiting not specified, unspecified vomiting type R11.2 [facility] [place] [address] [place] [id number] [place] [address] Dec, [place] [address] [address] Dec, Dysuria R30.0 and Irritable bowel K58.9 [facility] [address] [facility] [address] Sep, Chronic nausea R11.0 [place] [address] [address] Sep, [place] [address] [address] Sep, Viral gastroenteritis A08.4 [facility] [place] [address] [address] Aug, Headache R51 ; Viral upper r espiratory tract infection J06.9 and Nausea R11.0 [facility] [place] [address] [address] Jun, Reflux gastritis K29.60 [place] [address] [address] Jun, [place] [address] [address] May, [place] [address] [address] May, [place] [address] [address] Apr, Bowel habit changes R19.4 and Acute cyst itis without hematuria N30.00 [facility] [address] [address] Apr, Pain in right shoulder M25.511 [facility] [address] [address] Apr, [facility] [address] [address] Mar, [facility] [address] [address] Mar, [facility] [address] [address] Mar, [facility] [address] [address] Mar, [facility] [address] [address] 14 Feb, 2018 [facility] [address] [address] Feb, [facility] [address] [address] Feb, [facility] [address] [address] Jan, [facility] [address] [address] Dec, [facility] [address] [address] Dec, Other chronic pain G89.29 ; Pain in righ t shoulder M25.511 and Liver enzyme elevation R74.8 [facility] [address] [address] Nov, Other chronic pain G89.29 and Pain in ri ght shoulder M25.511 [facility] [address] [address] October, [facility] [address] [facility] [id number] [address] [place] [address] October, Right shoulder pain, unspeci fied chronicity M25.511 [place] [address] [address] Aug, Elevated liver enzymes R74.8 and Hyperli pidemia LDL goal <100 E78.5 [place] [address] [address] Aug, [place] [address] [address] Jul, [place] [address] [address] Jul, Intractable chronic migraine without aur a and with status migrainosus G43.711 ; Fever, unspecified fever cause R50.9 and Elevated liver enzymes R74.8 [place] [address] [address] Jun, Difficulty urinating R39.198 and Moderat e persistent asthma with exacerbation J45.41 [place] [address] [address] Jun, [place] [address] [address] Jun, Moderate persistent asthma with exacerba tion J45.41 [place] [address] [address] May, Elevated liver enzymes R74.8 and Hyperli pidemia LDL goal <100 E78.5 [place] [address] [address] May, Elevated lipids E78.5 [place] [address] [address] Apr, Elevated liver enzymes R74.8 [place] [address] [address] Apr, Elevated liver enzymes R74.8 [place] [address] [address] Apr, Superior glenoid labrum lesion of right shoulder, subsequent encounter S43.431D [place] [address] [address] Apr, Hypokalemia E87.6 ; Major depressive dis order, recurrent episode, moderate F33.1 ; Other abnormalities of breathing R06.89 and Dyspnea, unspecified R06.00 [facility] [address] [facility] [id number] [address] [place] [address] Mar, Moderate persistent asthma w [facility] complication J45.40 [place] [address] [address] Mar, Impingement syndrome of right shoulder M 75.41 [place] [address] [address] Jan, [place] [address] [address] Jan, Chronic migraine without aura with statu s migrainosus, not intractable G43.701 ; Essential hypertension I10 ; Irritable bowel K58.9 ; Primary insomnia F51.01 and Hypokalemia E87.6 [place] [address] [address] Dec, [place] [address] [address] Dec, Pain in right shoulder M25.511 [place] [address] [address] Dec, Essential hypertension I10 [place] [address] [address] Dec, [place] [address] [address] Nov, Essential hypertension I10 [place] [address] [address] Nov, Pain in right shoulder M25.511 [facility] [address] [address] 13 Nov, 2016 Pain in right shoulder M25.511 [place] [address] [address] October, [place] [address] [address] October, Pain in right shoulder M25.511 [place] [address] [address] Sep, Arm pain, right M79.601 [place] [address] [address] Sep, [place] [address] [address] Sep, Abnormal glucose R73.09 and Elevated lip ids E78.5 [place] [address] [address] Sep, Abnormal glucose R73.09 and Elevated lip ids E78.5 [place] [address] [address] Aug, [place] [address] [address] Aug, [place] [address] [address] Aug, [place] [address] [address] Aug, 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 ; Hypokalemia E87.6 ; Irritable bowel K58.9 ; Essential hypertension I10 ; Pain in right shoulder M25.511 ; Seizure disorder G40.909 and Screening for lipid disorders Z13.220 [place] [address] [address] Jul, Other chronic pain G89.29 and Pain in ri ght shoulder M25.511 [place] [address] [address] 14 Jul, 2016 Biceps muscle strain, right, subsequent encounter S46.111D [facility] [place] [address] [place] [id number] [place] [address] 08 Jul, 2016 Arm pain, right M79.601 [place] [address] [address] Jun, [place] [address] [address] 13 Jun, 2016 Acute non-recurrent frontal sinusitis J0 1.10 [place] [address] [address] 14 May, 2016 Generalized abdominal pain R10.84 ; Urin rohan tract infection without hematuria, site unspecified N39.0 ; Hypokalemia E87.6 ; Essential hypertension I10 ; Screening for lipid disorders Z13.220 ; Seizure R56.9 and Low back pain M54.5 [place] [address] [address] Apr, [facility] [place] [id number] [place] [address] Feb, [place] [address] [address] Jan, [address] [address] Dec, 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 ; Hypokalemia E87.6 ; Irritable bowel K58.9 and Nausea R11.0 [facility] [address] [place] [address] 18 Dec, 2015 Generalized abdominal pain R 10.84 [place] [address] [address] 24 Nov, 2015 [facility] [place] [id number] [place] [address] Aug, Acute bronchitis J20.9 [place] [address] [address] 14 Aug, 2015 [place] [address] [address] 08 Aug, 2015 Low back pain M54.5 ; Hypokalemia E87.6 ; Chronic migraine without aura with status migrainosus, not intractable G43.701 ; Tremor, hereditary, benign G25.0 ; Irritable bowel K58.9 ; Essential hypertension I10 and Seizure R56.9 [place] [address] [address] Aug, [place] [address] [address] 09 Jul, 2015 [place] [address] [address] Jul, Low back pain M54.5 ; Hypokalemia E87.6 ; Chronic migraine without aura with status migrainosus, not intractable G43.701 ; Tremor, hereditary, benign G25.0 ; Irritable bowel K58.9 ; Essential hypertension I10 and Seizure R56.9 [place] [address] [address] Jun, Hypokalemia E87.6 [place] [address] [address] Jun, ADD (attention deficit disorder) without hyperactivity F90.0 ; Generalized anxiety disorder F41.1 and Major depressive disorder, recurrent episode, moderate F33.1 [place] [address] [address] 13 Jun, 2015 Low back pain M54.5 ; Hypokalemia E87.6 ; Chronic migraine without aura with status migrainosus, not intractable G43.701 ; Tremor, hereditary, benign G25.0 ; Irritable bowel K58.9 ; Essential hypertension I10 and Seizure R56.9 [place] [address] [address] Jun, [place] [address] [address] May, [place] [address] [place] [id number] May, Low back pain M54.5 ; Hypokalemia E87.6 ; Chronic migraine without aura with status migrainosus, not intractable G43.701 ; Tremor, hereditary, benign G25.0 ; Irritable bowel K58.9 ; Essential hypertension I10 ; Seizure R56.9 and Tinea capitis B35.0 [place] [address] [address] May, Low back pain M54.5 ; Hypokalemia E87.6 ; Chronic migraine without aura with status migrainosus, not intractable G43.701 ; Tremor, hereditary, benign G25.0 ; Irritable bowel K58.9 ; Essential hypertension I10 ; Seizure R56.9 ; Otitis media, left H66.92 and Dysuria 788.1 [place] [address] [address] May, Tooth pain K08.8 [place] [address] [address] May, [place] [address] [address] May, Low back pain M54.5 ; Hypokalemia E87.6 ; Chronic migraine without aura with status migrainosus, not intractable G43.701 ; Tremor, hereditary, benign G25.0 ; Irritable bowel K58.9 and Essential hypertension I10 [place] [address] [address] Apr, Low back pain M54.5 ; Hypokalemia E87.6 ; Chronic migraine without aura with status migrainosus, not intractable G43.701 ; Tremor, hereditary, benign G25.0 and Irritable bowel K58.9 [place] [address] [place] [id number] [place] [address] Apr, Low back pain M54.5 [facility] [address] [address] Mar, [facility] [address] [address] Mar, Irritable bowel syndrome with diarrhea K 58.0 [facility] [address] [address] Mar, [facility] [address] [address] Feb, [facility] [address] [address] Feb, [facility] [address] [address] Feb, Irritable bowel syndrome 564.1 ; Lumbago 724.2 and Cervical pain (neck) 723.1 [facility] [address] [address] Dec, Major depressive disorder, recurrent epi sode, moderate 296.32 and Generalized anxiety disorder 300.02 [facility] [address] [address] Nov, [facility] [address] [address] Nov, Major depressive disorder, recurrent epi sode, moderate 296.32 [facility] [address] [address] Nov, Constipation 564.00 ; Nausea & vomiting 787.01 and Abdominal pain 789.00 [facility] [address] [address] Nov, [facility] [address] [address] October, [facility] [address] [address] October, [facility] [place] [facility] [address] [id number] [place] [address] October, [facility] [place] [facility] [address] [id number] [place] [address] October, [facility] [place] [facility] [address] [id number] [place] [address] Sep, Dysuria 788.1 [facility] [place] [facility] [address] [id number] [place] [address] Sep, [facility] [place] [facility] [address] [id number] [place] [address] Sep, [facility] [place] [facility] [address] [id number] [place] [address] Sep, [facility] [place] [facility] [address] [id number] [place] [address] Sep, [facility] [place] [facility] [address] [id number] [place] [address] Aug, [facility] [place] [facility] [address] [id number] [place] [address] Aug, [facility] [place] [facility] [address] [id number] [place] [address] Aug, [facility] [place] [facility] [address] [id number] [place] [address] Aug, [facility] [place] [facility] [address] [id number] [place] [address] Aug, [facility] [place] [facility] [address] [id number] [place] [address] Aug, [facility] [place] [facility] [address] [place] [id number] [place] [address] Aug, [facility] [place] [facility] [address] [id number] [place] [address] Aug, [facility] [place] [facility] [address] [id number] [place] [address] Aug, [facility] [place] [facility] [address] [id number] [place] [address] Aug, [facility] [place] [facility] [address] [id number] [place] [address] Jun, [facility] [place] [facility] [address] [id number] [place] [address] Jun, [facility] [place] [facility] [address] [place] [id number] [place] [address] Jun, [facility] [place] [facility] [address] [id number] [place] [address] Jun, [facility] [place] [facility] [address] [id number] [place] [address] May, [facility] [place] [facility] [address] [id number] [place] [address] May, [facility] [place] [facility] [address] [place] [id number] [place] [address] May, [facility] [place] [facility] [address] [id number] [place] [address] May, [facility] [place] [facility] [address] [id number] [place] [address] May, [facility] [place] [facility] [address] [id number] [place] [address] May, [facility] [place] [facility] [address] [id number] [place] [address] May, [facility] [place] [facility] [address] [id number] [place] [address] May, [facility] [place] [facility] [address] [id number] [place] [address] Mar, [facility] [place] [facility] [address] [place] [id number] [place] [address] Mar, [facility] [place] [facility] [address] [id number] [place] [address] Mar, [facility] [place] [facility] [address] [id number] [place] [address] Mar, [facility] [place] [facility] [address] [facility] [id number] [place] [address] Mar, [facility] [place] [facility] [address] [facility] [id number] [place] [address] Mar, [facility] [place] [facility] [address] [id number] [place] [address] Mar, [facility] [place] [facility] [address] [facility] [id number] [place] [address] Mar, [facility] [place] [facility] [address] [facility] [id number] [place] [address] Mar, [facility] [place] [facility] [address] [facility] [id number] [place] [address] Mar, [facility] [place] [facility] [address] [id number] [place] [address] Mar, [facility] [place] [facility] [address] [id number] [place] [address] Mar, [facility] [place] [facility] [address] [facility] [id number] [place] [address] Feb, [facility] [place] [facility] [address] [id number] [place] [address] Feb, [facility] [place] [facility] [address] [id number] [place] [address] Feb, [facility] [place] [facility] [address] [id number] [place] [address] Feb, [facility] [place] [facility] [address] [facility] [id number] [place] [address] Feb, [facility] [place] [facility] [address] [facility] [id number] [place] [address] Feb, [facility] [place] [facility] [address] [facility] [id number] [place] [address] Jan, [facility] [place] [facility] [address] [id number] [place] [address] Jan, [facility] [place] [facility] [address] [facility] [id number] [place] [address] Jan, [facility] [place] [facility] [address] [id number] [facility] [address] Jan, [facility] [place] [facility] [address] [facility] [id number] [place] [address] Jan, [facility] [place] [facility] [address] [id number] [place] [address] Jan, [facility] [place] [facility] [address] [facility] [id number] [place] [address] Jan, [facility] [address] [id number] [place] [address] Jan, [facility] [address] [id number] [place] [address] Dec, [facility] [address] [id number] [place] [address] Dec, [facility] [address] [id number] [place] [address] Dec, [facility] [address] [facility] [id number] [place] [address] Dec, [facility] [address] [id number] [place] [address] Dec, [facility] [address] [id number] [place] [address] Dec, [facility] [address] [id number] [place] [address] Dec, [facility] [address] [facility] [id number] [place] [address] Dec, [facility] [address] [id number] [place] [address] October, [facility] [address] [id number] [place] [address] October, [facility] [address] [id number] [place] [address] Sep, [facility] [address] [id number] [place] [address] Sep, [facility] [address] [facility] [id number] [place] [address] Sep, [facility] [address] [id number] [place] [address] Sep, [facility] [address] [id number] [place] [address] Sep, [facility] [address] [facility] [id number] [place] [address] Sep, [facility] [address] [id number] [place] [address] Sep, [facility] [address] [id number] [place] [address] Sep, [facility] [address] [id number] [place] [address] Sep, [facility] [address] [id number] [place] [address] Sep, [facility] [address] [id number] [place] [address] Sep, [facility] [address] [id number] [place] [address] Sep, [facility] [address] [id number] [place] [address] Aug, [facility] [address] [id number] [place] [address] Aug, [facility] [address] [id number] [place] [address] Aug, [facility] [address] [id number] [place] [address] Jun, [facility] [address] [id number] [place] [address] Jun, [facility] [address] [id number] [place] [address] Jun, [facility] [address] [id number] [place] [address] Jun, [facility] [address] [id number] [place] [address] Jun, [facility] [address] [id number] [place] [address] Jun, [facility] [address] [id number] [place] [address] Jun, [facility] [address] [id number] [place] [address] Jun, [facility] [address] [id number] [place] [address] Jun, [facility] [address] [id number] [place] [address] Jun, [facility] [address] [id number] [place] [address] May, [facility] [address] [id number] [place] [address] May, [facility] [address] [id number] [place] [address] May, [facility] [address] [id number] [place] [address] May, [facility] [address] [id number] [place] [address] Apr, [facility] [address] [id number] [place] [address] Apr, [facility] [address] [id number] [place] [address] Apr, [facility] [address] [id number] [place] [address] Apr, [facility] [address] [id number] [place] [address] Apr, [facility] [address] [id number] [place] [address] Apr, [facility] [address] [id number] [place] [address] Apr, [facility] [address] [id number] [place] [address] Apr, [facility] [address] [id number] [place] [address] Mar, [facility] [address] [id number] [place] [address] Mar, [facility] [address] [id number] [place] [address] Mar, [facility] [address] [id number] [place] [address] Mar, [facility] [address] [id number] [place] [address] Mar, [facility] [address] [id number] [place] [address] Feb, [facility] [address] [id number] [place] [address] Feb, [facility] [address] [id number] [place] [address] Feb, [facility] [address] [id number] [place] [address] Feb, [facility] [address] [id number] [place] [address] Feb, [facility] [address] [id number] [place] [address] Jan, [facility] [address] [id number] [place] [address] Jan, [facility] [address] [id number] [place] [address] Nov, [facility] [address] [id number] [place] [address] Nov, [facility] [address] [id number] [place] [address] Nov, [facility] [address] [id number] [place] [address] Nov, [facility] [address] [id number] [place] [address] October, [facility] [address] [id number] [place] [address] Sep, [facility] [address] [id number] [place] [address] Aug, [facility] [address] [id number] [place] [address] Aug, [facility] [address] [id number] [place] [address] Aug, [facility] [id number] [place] [address] Aug, [facility] [address] [id number] [place] [address] Jul, [facility] [address] [id number] [place] [address] Jun, [facility] [address] [id number] [place] [address] Jun, [facility] [address] [id number] [place] [address] May, [facility] [address] [id number] [place] [address] May, [facility] [address] [facility] [id number] [place] [id number] Mar, [facility] [address] [id number] [place] [address] Mar, [facility] [address] [id number] [place] [address] Mar, [facility] [address] [id number] [place] [address] Mar, 2011 [facility] [address] [facility] [id number] [place] [address] Mar, 2011 [facility] [address] [facility] [id number] [place] [address] Mar, 2011 [facility] [address] [id number] [place] [address] Mar, 2011 [facility] [address] [facility] [id number] [place] [address] Mar, 2011 [facility] [address] [facility] [id number] [place] [address] Mar, 2011 [facility] [address] [id number] [place] [address] 20 Mar, 2011 [facility] [address] [id number] [place] [address] 20 Mar, 2011 [facility] [address] [id number] [place] [address] 17 Mar, 2011 [facility] [address] [facility] [id number] [place] [address] 17 Mar, 2011 [facility] [address] [id number] [place] [address] 15 Mar, 2011 [facility] [address] [id number] [place] [address] 15 Mar, 2011 [facility] [address] [id number] [place] [address] 15 Mar, 2011 [facility] [address] [facility] [id number] [place] [address] 15 Mar, 2011 [facility] [address] [facility] [id number] [place] [address] 11 Mar, 2011 [facility] [address] [facility] [id number] [place] [address] 11 Mar, 2011 [facility] [address] [id number] [place] [address] 08 Mar, 2011 [facility] [address] [id number] [place] [address] 08 Mar, 2012 [facility] [address] [id number] [facility] [address] 03 Mar, 2012 [facility] [address] [id number] [place] [address] Mar, [facility] [address] [id number] [place] [address] 19 Feb, 2012 [facility] [address] [id number] [place] [address] 18 Feb, 2012 [facility] [address] [id number] [place] [address] 17 Feb, 2012 [facility] [address] [id number] [place] [address] 14 Feb, 2012 [facility] [address] [id number] [place] [address] 14 Feb, 2012 [facility] [address] [id number] [place] [address] 12 Feb, 2012 [facility] [address] [id number] [place] [address] 10 Feb, 2012 [facility] [address] [id number] [place] [address] 31 Jan, 2012 [facility] [address] [id number] [place] [address] 30 Jan, 2012 [facility] [address] [id number] [place] [address] Jan, [facility] [address] [id number] [place] [address] Jan, [facility] [address] [id number] [place] [address] Jan, [facility] [address] [id number] [place] [address] Jan, [facility] [address] [id number] [place] [address] Jan, [facility] [address] [id number] [place] [address] Jan, [facility] [address] [id number] [facility] [place] [address] Jan, [facility] [address] [id number] [place] [address] Jan, [facility] [address] [id number] [place] [address] Dec, [facility] [address] [id number] [place] [address] Dec, [facility] [address] [id number] [place] [address] Dec, [facility] [address] [id number] [place] [address] Dec, [facility] [address] [id number] [place] [address] Dec, [facility] [address] [id number] [place] [address] Dec, [facility] [address] [id number] [place] [address] Dec, [facility] [address] [id number] [place] [address] Dec, [facility] [address] [id number] [place] [address] Dec, [facility] [address] [id number] [place] [address] Dec, [facility] [address] [id number] [place] [address] Dec, [facility] [address] [id number] [place] [address] Nov, [facility] [address] [id number] [place] [address] Nov, [facility] [address] [id number] [place] [address] Nov, [facility] [id number] [place] [address] Nov, [facility] [id number] [place] [address] Nov, [facility] [id number] [place] [address] Nov, [facility] [address] [address] Nov, [facility] [address] [address] Nov, [facility] [address] [address] Nov, [facility] [address] [address] Nov, [facility] [address] [address] October, IMMUNIZATIONS No Known Immunizations SOCIAL HISTORY [...]
--- OUTSIDE RECORDS SUMMARY | 2019-11-15 09:44 | XMS REPORT ---
Author Author Maggy Ballesteros Doctor Organization [facility] Address Unknown Phone Unavailable Care Team Providers Care Gear Coding Machine Operator Name Role Phone Migration, Doctor Unavailable Unavailable PROBLEMS Type Condition ICD9-CM Code MID73-NT Code Onset Dates Condition S tatus SNOMED Code Problem Abnormal glucose R73.09 Active 102 497858 Problem Hyperlipidemia LDL goal <100 E78.5 A ctive 17767370 Problem Elevated liver enzymes R74.8 Active 430779948 Problem Intractable chronic migraine without aura and wi th status migrainosus G43.711 Active 561119383 Problem Moderate persistent asthma with exacerbation J45.4 1 Active 632054994 Problem Hypokalemia E87.6 Active 78564076 Problem Chronic migraine without aura with statu s migrainosus, not intractable G43.701 Active 390150202 Problem Constipation by delayed colonic transit K59.01 Active 95934744 Problem Essential hypertension I10 Active 03867442 Problem Seizure disorder G40.909 Active 128 175278 Problem Other chronic pain G89.29 Active 8 1295329 Problem Moderate persistent asthma without complication J4 5.40 Active 095841255 Problem Primary insomnia F51.01 Active 397 2004 Problem Other chronic pain G89.29 Active 8 2819686 Problem Reflux gastritis K29.60 Active 729 57383 Problem Irritable bowel syndrome with constipation K58.1 Active 464275362 Problem Aneurysm I72.9 Active 54980422 Problem Tremor, hereditary, benign G25.0 Act caitlin 457434990 Problem Migraine with aura and without status migrainosu s, not intractable G43.109 Active 3652243 Problem Major depressive disorder, recurrent episode, moderate F33.1 Active 511112471 Problem Irritable bowel K58.9 Active 1074 3008 Problem Lumbago with sciatica, left side M54.42 Active 619842629 Problem Lumbago with sciatica, right side M54.41 Active 813363122779089 Problem Mood disorder F39 Active 500791 05 Problem RLS (restless legs syndrome) G25.81 A ctive 25003840 ALLERGIES No Information ENCOUNTERS Encounter Location Date Diagnosis [facility] [address] [address] Jun, [place] [address] [address] Jun, Seizures R56.9 ; Migraine with aura and without status migrainosus, not intractable G43.109 ; Other chronic pain G89.29 and Pain in right shoulder M25.511 [place] [address] [address] Jun, [place] [address] [address] May, Primary insomnia F51.01 ; Intractable ch ronic migraine without aura and with status migrainosus G43.711 and Aneurysm I72.9 [place] [address] [address] Apr, RLS (restless legs syndrome) G25.81 and Mood disorder F39 [place] [address] [address] Apr, [place] [address] [address] Mar, Other chronic pain G89.29 and Pain in ri ght shoulder M25.511 [place] [address] [address] Mar, Acute left ankle pain M25.572 [place] [address] [address] Mar, [place] [address] [address] Mar, Acute left ankle pain M25.572 [place] [address] [address] Mar, Major depressive disorder, recurrent epi sode, moderate F33.1 [place] [address] [address] Mar, Major depressive disorder, recurrent epi sode, moderate F33.1 ; Lumbago with sciatica, left side M54.42 and Lumbago with sciatica, right side M54.41 [facility] [address] [address] Mar, [facility] [address] [address] Mar, [place] [address] [address] Mar, Major depressive disorder, recurrent epi sode, moderate F33.1 ; Lumbago with sciatica, left side M54.42 and Lumbago with sciatica, right side M54.41 [place] [address] [address] Feb, Viral gastroenteritis A08.4 [facility] [place] [id number] [address] [place] [address] Feb, Nausea and vomiting, intract ability of vomiting not specified, unspecified vomiting type R11.2 [place] [address] [address] Feb, [place] [address] [address] Feb, [place] [address] [address] Feb, C. difficile colitis A04.72 ; Mood disor dionicio F39 ; Lumbago with sciatica, left side M54.42 ; Lumbago with sciatica, right side M54.41 and Other chronic pain G89.29 [place] [address] [address] Jan, [facility] [address] [facility] [id number] [address] [place] [address] Jan, Nausea & vomiting R11.2 [place] [address] [address] Dec, Irritable bowel syndrome with constipati on K58.1 ; Other chronic pain G89.29 and Pain in right shoulder M25.511 [facility] [place] [address] [address] [place] [id number] [address] [place] [address] Dec, Generalized abdominal pain R 10.84 and Nausea and vomiting, intractability of vomiting not specified, unspecified vomiting type R11.2 [facility] [place] [address] [address] [place] [id number] [address] [place] [address] Dec, [place] [address] [address] Dec, Dysuria R30.0 and Irritable bowel K58.9 [facility] [address] [facility] [address] Sep, Chronic nausea R11.0 [place] [address] [address] Sep, [place] [address] [address] Sep, Viral gastroenteritis A08.4 [facility] [place] [address] [address] Aug, Headache R51 ; Viral upper r espiratory tract infection J06.9 and Nausea R11.0 [facility] [place] [address] [address] Jun, Reflux gastritis K29.60 [place] [address] [address] Jun, [place] [address] [address] May, [place] [address] [address] May, [place] [address] [address] Apr, Bowel habit changes R19.4 and Acute cyst itis without hematuria N30.00 [facility] [address] [address] Apr, Pain in right shoulder M25.511 [facility] [address] [address] Apr, [facility] [address] [address] Mar, [facility] [address] [address] Mar, [facility] [address] [address] Mar, [facility] [address] [address] Mar, [facility] [address] [address] 14 Feb, 2018 [facility] [address] [address] Feb, [facility] [address] [address] Feb, [facility] [address] [address] Jan, [facility] [address] [address] Dec, [facility] [address] [address] Dec, Other chronic pain G89.29 ; Pain in righ t shoulder M25.511 and Liver enzyme elevation R74.8 [facility] [address] [address] Nov, Other chronic pain G89.29 and Pain in ri ght shoulder M25.511 [facility] [address] [address] October, [facility] [address] [facility] [id number] [address] [place] [address] October, Right shoulder pain, unspeci fied chronicity M25.511 [place] [address] [address] Aug, Elevated liver enzymes R74.8 and Hyperli pidemia LDL goal <100 E78.5 [place] [address] [address] Aug, [place] [address] [address] Jul, [place] [address] [address] Jul, Intractable chronic migraine without aur a and with status migrainosus G43.711 ; Fever, unspecified fever cause R50.9 and Elevated liver enzymes R74.8 [place] [address] [address] Jun, Difficulty urinating R39.198 and Moderat e persistent asthma with exacerbation J45.41 [place] [address] [address] Jun, [place] [address] [address] Jun, Moderate persistent asthma with exacerba tion J45.41 [place] [address] [address] May, Elevated liver enzymes R74.8 and Hyperli pidemia LDL goal <100 E78.5 [place] [address] [address] May, Elevated lipids E78.5 [place] [address] [address] Apr, Elevated liver enzymes R74.8 [place] [address] [address] Apr, Elevated liver enzymes R74.8 [place] [address] [address] Apr, Superior glenoid labrum lesion of right shoulder, subsequent encounter S43.431D [place] [address] [address] Apr, Hypokalemia E87.6 ; Major depressive dis order, recurrent episode, moderate F33.1 ; Other abnormalities of breathing R06.89 and Dyspnea, unspecified R06.00 [facility] [address] [facility] [id number] [address] [place] [address] Mar, Moderate persistent asthma w [facility] complication J45.40 [place] [address] [address] Mar, Impingement syndrome of right shoulder M 75.41 [place] [address] [address] Jan, [place] [address] [address] Jan, Chronic migraine without aura with statu s migrainosus, not intractable G43.701 ; Essential hypertension I10 ; Irritable bowel K58.9 ; Primary insomnia F51.01 and Hypokalemia E87.6 [place] [address] [address] Dec, [place] [address] [address] Dec, Pain in right shoulder M25.511 [place] [address] [address] Dec, Essential hypertension I10 [place] [address] [address] Dec, [place] [address] [address] Nov, Essential hypertension I10 [place] [address] [address] Nov, Pain in right shoulder M25.511 [facility] [address] [address] 13 Nov, 2016 Pain in right shoulder M25.511 [place] [address] [address] October, [place] [address] [address] October, Pain in right shoulder M25.511 [place] [address] [address] Sep, Arm pain, right M79.601 [place] [address] [address] Sep, [place] [address] [address] Sep, Abnormal glucose R73.09 and Elevated lip ids E78.5 [place] [address] [address] Sep, Abnormal glucose R73.09 and Elevated lip ids E78.5 [place] [address] [address] Aug, [place] [address] [address] Aug, [place] [address] [address] Aug, [place] [address] [address] Aug, Constipation by delayed colonic transit K59.01 ; Hypokalemia E87.6 ; Irritable bowel K58.9 ; Essential hypertension I10 ; Pain in right shoulder M25.511 ; Seizure disorder G40.909 and Screening for lipid disorders Z13.220 [place] [address] [address] Jul, Other chronic pain G89.29 and Pain in ri ght shoulder M25.511 [place] [address] [address] 14 Jul, 2016 Biceps muscle strain, right, subsequent encounter S46.111D [facility] [place] [address] [address] [place] [id number] [address] [place] [address] 08 Jul, 2016 Arm pain, right M79.601 [place] [address] [address] Jun, [place] [address] [address] 13 Jun, 2016 Acute non-recurrent frontal sinusitis J0 1.10 [place] [address] [address] 14 May, 2016 Generalized abdominal pain R10.84 ; Urin rohan tract infection without hematuria, site unspecified N39.0 ; Hypokalemia E87.6 ; Essential hypertension I10 ; Screening for lipid disorders Z13.220 ; Seizure R56.9 and Low back pain M54.5 [place] [address] [address] Apr, [facility] [place] [id number] [address] [place] [address] Feb, [place] [address] [address] Jan, [address] [address] Dec, Constipation by delayed colonic transit K59.01 ; Hypokalemia E87.6 ; Irritable bowel K58.9 and Nausea R11.0 [facility] [address] [place] [address] 18 Dec, 2015 Generalized abdominal pain R 10.84 [place] [address] [address] 24 Nov, 2015 [facility] [place] [id number] [address] [place] [address] Aug, Acute bronchitis J20.9 [place] [address] [address] 14 Aug, 2015 [place] [address] [address] 08 Aug, 2015 Low back pain M54.5 ; Hypokalemia E87.6 ; Chronic migraine without aura with status migrainosus, not intractable G43.701 ; Tremor, hereditary, benign G25.0 ; Irritable bowel K58.9 ; Essential hypertension I10 and Seizure R56.9 [place] [address] [address] Aug, [place] [address] [address] 09 Jul, 2015 [place] [address] [address] Jul, Low back pain M54.5 ; Hypokalemia E87.6 ; Chronic migraine without aura with status migrainosus, not intractable G43.701 ; Tremor, hereditary, benign G25.0 ; Irritable bowel K58.9 ; Essential hypertension I10 and Seizure R56.9 [place] [address] [address] Jun, Hypokalemia E87.6 [place] [address] [address] Jun, ADD (attention deficit disorder) without hyperactivity F90.0 ; Generalized anxiety disorder F41.1 and Major depressive disorder, recurrent episode, moderate F33.1 [place] [address] [address] 13 Jun, 2015 Low back pain M54.5 ; Hypokalemia E87.6 ; Chronic migraine without aura with status migrainosus, not intractable G43.701 ; Tremor, hereditary, benign G25.0 ; Irritable bowel K58.9 ; Essential hypertension I10 and Seizure R56.9 [place] [address] [address] Jun, [place] [address] [address] May, [place] [address] [place] [id number] May, Low back pain M54.5 ; Hypokalemia E87.6 ; Chronic migraine without aura with status migrainosus, not intractable G43.701 ; Tremor, hereditary, benign G25.0 ; Irritable bowel K58.9 ; Essential hypertension I10 ; Seizure R56.9 and Tinea capitis B35.0 [place] [address] [address] May, Low back pain M54.5 ; Hypokalemia E87.6 ; Chronic migraine without aura with status migrainosus, not intractable G43.701 ; Tremor, hereditary, benign G25.0 ; Irritable bowel K58.9 ; Essential hypertension I10 ; Seizure R56.9 ; Otitis media, left H66.92 and Dysuria 788.1 [place] [address] [address] May, Tooth pain K08.8 [place] [address] [address] May, [place] [address] [address] May, Low back pain M54.5 ; Hypokalemia E87.6 ; Chronic migraine without aura with status migrainosus, not intractable G43.701 ; Tremor, hereditary, benign G25.0 ; Irritable bowel K58.9 and Essential hypertension I10 [place] [address] [address] Apr, Low back pain M54.5 ; Hypokalemia E87.6 ; Chronic migraine without aura with status migrainosus, not intractable G43.701 ; Tremor, hereditary, benign G25.0 and Irritable bowel K58.9 [place] [address] [place] [id number] [place] [address] Apr, Low back pain M54.5 [facility] [address] [address] Mar, [facility] [address] [address] Mar, Irritable bowel syndrome with diarrhea K 58.0 [facility] [address] [address] Mar, [facility] [address] [address] Feb, [facility] [address] [address] Feb, [facility] [address] [address] Feb, Irritable bowel syndrome 564.1 ; Lumbago 724.2 and Cervical pain (neck) 723.1 [facility] [address] [address] Dec, Major depressive disorder, recurrent epi sode, moderate 296.32 and Generalized anxiety disorder 300.02 [facility] [address] [address] Nov, [facility] [address] [address] Nov, Major depressive disorder, recurrent epi sode, moderate 296.32 [facility] [address] [address] Nov, Constipation 564.00 ; Nausea & vomiting 787.01 and Abdominal pain 789.00 [facility] [address] [address] Nov, [facility] [address] [address] October, [facility] [address] [address] October, [facility] [place] [facility] [address] [id number] [place] [address] October, [facility] [place] [facility] [address] [id number] [place] [address] October, [facility] [place] [facility] [address] [id number] [place] [address] Sep, Dysuria 788.1 [facility] [place] [facility] [address] [id number] [place] [address] Sep, [facility] [place] [facility] [address] [id number] [place] [address] Sep, [facility] [place] [facility] [address] [id number] [place] [address] Sep, [facility] [place] [facility] [address] [id number] [place] [address] Sep, [facility] [place] [facility] [address] [id number] [place] [address] Aug, [facility] [place] [facility] [address] [id number] [place] [address] Aug, [facility] [place] [facility] [address] [id number] [place] [address] Aug, [facility] [place] [facility] [address] [id number] [place] [address] Aug, [facility] [place] [facility] [address] [id number] [place] [address] Aug, [facility] [place] [facility] [address] [id number] [place] [address] Aug, [facility] [place] [facility] [address] [place] [id number] [place] [address] Aug, [facility] [place] [facility] [address] [id number] [place] [address] Aug, [facility] [place] [facility] [address] [id number] [place] [address] Aug, [facility] [place] [facility] [address] [id number] [place] [address] Aug, [facility] [place] [facility] [address] [id number] [place] [address] Jun, [facility] [place] [facility] [address] [id number] [place] [address] Jun, [facility] [place] [facility] [address] [place] [id number] [place] [address] Jun, [facility] [place] [facility] [address] [id number] [place] [address] Jun, [facility] [place] [facility] [address] [id number] [place] [address] May, [facility] [place] [facility] [address] [id number] [place] [address] May, [facility] [place] [facility] [address] [place] [id number] [place] [address] May, [facility] [place] [facility] [address] [id number] [place] [address] May, [facility] [place] [facility] [address] [id number] [place] [address] May, [facility] [place] [facility] [address] [id number] [place] [address] May, [facility] [place] [facility] [address] [id number] [place] [address] May, [facility] [place] [facility] [address] [id number] [place] [address] May, [facility] [place] [facility] [address] [id number] [place] [address] Mar, [facility] [place] [facility] [address] [place] [id number] [place] [address] Mar, [facility] [place] [facility] [address] [id number] [place] [address] Mar, [facility] [place] [facility] [address] [id number] [place] [address] Mar, [facility] [place] [facility] [address] [facility] [id number] [place] [address] Mar, [facility] [place] [facility] [address] [facility] [id number] [place] [address] Mar, [facility] [place] [facility] [address] [id number] [place] [address] Mar, [facility] [place] [facility] [address] [facility] [id number] [place] [address] Mar, [facility] [place] [facility] [address] [facility] [id number] [place] [address] Mar, [facility] [place] [facility] [address] [facility] [id number] [place] [address] Mar, [facility] [place] [facility] [address] [id number] [place] [address] Mar, [facility] [place] [facility] [address] [id number] [place] [address] Mar, [facility] [place] [facility] [address] [facility] [id number] [place] [address] Feb, [facility] [place] [facility] [address] [id number] [place] [address] Feb, [facility] [place] [facility] [address] [id number] [place] [address] Feb, [facility] [place] [facility] [address] [id number] [place] [address] Feb, [facility] [place] [facility] [address] [facility] [id number] [place] [address] Feb, [facility] [place] [facility] [address] [facility] [id number] [place] [address] Feb, [facility] [place] [facility] [address] [facility] [id number] [place] [address] Jan, [facility] [place] [facility] [address] [id number] [place] [address] Jan, [facility] [place] [facility] [address] [facility] [id number] [place] [address] Jan, [facility] [place] [facility] [address] [id number] [facility] [address] Jan, [facility] [place] [facility] [address] [facility] [id number] [place] [address] Jan, [facility] [place] [facility] [address] [id number] [place] [address] Jan, [facility] [place] [facility] [address] [facility] [id number] [place] [address] Jan, [facility] [place] [facility] [address] [id number] [place] [address] Jan, [facility] [place] [facility] [address] [id number] [place] [address] Dec, [facility] [place] [facility] [address] [id number] [place] [address] Dec, [facility] [place] [facility] [address] [id number] [place] [address] Dec, [facility] [place] [facility] [address] [facility] [id number] [place] [address] Dec, [facility] [place] [facility] [address] [id number] [place] [address] Dec, [facility] [place] [facility] [address] [id number] [place] [address] Dec, [facility] [place] [facility] [address] [id number] [place] [address] Dec, [facility] [place] [facility] [address] [facility] [id number] [place] [address] Dec, [facility] [place] [facility] [address] [id number] [place] [address] October, [facility] [address] [id number] [place] [address] October, [facility] [address] [id number] [place] [address] Sep, [facility] [address] [id number] [place] [address] Sep, [facility] [address] [facility] [id number] [place] [address] Sep, [facility] [address] [id number] [place] [address] Sep, [facility] [address] [id number] [place] [address] Sep, [facility] [address] [facility] [id number] [place] [address] Sep, [facility] [address] [id number] [place] [address] Sep, [facility] [address] [id number] [place] [address] Sep, [facility] [address] [id number] [place] [address] Sep, [facility] [address] [id number] [place] [address] Sep, [facility] [address] [id number] [place] [address] Sep, [facility] [address] [id number] [place] [address] Sep, [facility] [address] [id number] [place] [address] Aug, [facility] [address] [id number] [place] [address] Aug, [facility] [address] [id number] [place] [address] Aug, [facility] [address] [id number] [place] [address] Jun, [facility] [address] [id number] [place] [address] Jun, [facility] [address] [id number] [place] [address] Jun, [facility] [address] [id number] [place] [address] Jun, [facility] [address] [id number] [place] [address] Jun, [facility] [address] [id number] [place] [address] Jun, [facility] [facility] [address] [id number] [place] [address] Jun, [facility] [address] [id number] [place] [address] Jun, [facility] [address] [id number] [place] [address] Jun, [facility] [address] [id number] [place] [address] Jun, [facility] [address] [id number] [place] [address] May, [facility] [address] [id number] [place] [address] May, [facility] [address] [id number] [place] [address] May, [facility] [address] [id number] [place] [address] May, [facility] [address] [id number] [place] [address] Apr, [facility] [address] [id number] [place] [address] Apr, [facility] [address] [id number] [place] [address] Apr, [facility] [address] [id number] [place] [address] Apr, [facility] [address] [id number] [place] [address] Apr, [facility] [address] [id number] [place] [address] Apr, [facility] [address] [id number] [place] [address] Apr, [facility] [address] [id number] [place] [address] Apr, [facility] [address] [id number] [place] [address] Mar, [facility] [address] [id number] [place] [address] Mar, [facility] [address] [id number] [place] [address] Mar, [facility] [address] [id number] [place] [address] Mar, [facility] [address] [id number] [place] [address] Mar, [facility] [address] [id number] [place] [address] Feb, [facility] [address] [id number] [place] [address] Feb, [facility] [address] [id number] [place] [address] Feb, [facility] [address] [id number] [place] [address] Feb, [facility] [address] [id number] [place] [address] Feb, [facility] [address] [id number] [place] [address] Jan, [facility] [address] [id number] [place] [address] Jan, [facility] [address] [id number] [place] [address] Nov, [facility] [address] [id number] [place] [address] Nov, [facility] [address] [id number] [place] [address] Nov, [facility] [address] [id number] [place] [address] Nov, [facility] [address] [id number] [place] [address] October, [facility] [address] [id number] [place] [address] Sep, [facility] [address] [id number] [place] [address] Aug, [facility] [address] [id number] [place] [address] Aug, [facility] [address] [id number] [place] [address] Aug, [facility] [id number] [place] [address] Aug, [facility] [address] [id number] [place] [address] Jul, [facility] [address] [id number] [place] [address] Jun, [facility] [address] [id number] [place] [address] Jun, [facility] [address] [id number] [place] [address] May, [facility] [address] [id number] [place] [address] May, [facility] [address] [facility] [id number] [place] [id number] Mar, [facility] [address] [id number] [place] [address] Mar, [facility] [address] [id number] [place] [address] Mar, [facility] [address] [id number] [place] [address] Mar, 2011 [facility] [address] [facility] [id number] [place] [address] Mar, 2011 [facility] [address] [facility] [id number] [place] [address] Mar, 2011 [facility] [address] [id number] [place] [address] Mar, 2011 [facility] [address] [facility] [id number] [place] [address] Mar, 2011 [facility] [address] [facility] [id number] [place] [address] Mar, 2011 [facility] [address] [id number] [place] [address] 20 Mar, 2011 [facility] [address] [id number] [place] [address] 20 Mar, 2011 [facility] [address] [id number] [place] [address] 17 Mar, 2011 [facility] [address] [facility] [id number] [place] [address] 17 Mar, 2011 [facility] [address] [id number] [place] [address] 15 Mar, 2011 [facility] [address] [id number] [place] [address] 15 Mar, 2011 [facility] [address] [id number] [place] [address] 15 Mar, 2011 [facility] [address] [facility] [id number] [place] [address] 15 Mar, 2011 [facility] [address] [facility] [id number] [place] [address] 11 Mar, 2011 [facility] [address] [facility] [id number] [place] [address] 11 Mar, 2011 [facility] [address] [id number] [place] [address] 08 Mar, 2011 [facility] [address] [id number] [place] [address] 08 Mar, 2012 [facility] [address] [id number] [facility] [address] 03 Mar, 2012 [facility] [address] [id number] [place] [address] Mar, [facility] [address] [id number] [place] [address] 19 Feb, 2012 [facility] [address] [id number] [place] [address] 18 Feb, 2012 [facility] [address] [id number] [place] [address] 17 Feb, 2012 [facility] [address] [id number] [place] [address] 14 Feb, 2012 [facility] [address] [id number] [place] [address] 14 Feb, 2012 [facility] [address] [id number] [place] [address] 12 Feb, 2012 [facility] [address] [id number] [place] [address] 10 Feb, 2012 [facility] [address] [id number] [place] [address] 31 Jan, 2012 [facility] [address] [id number] [place] [address] 30 Jan, 2012 [facility] [address] [id number] [place] [address] Jan, [facility] [address] [id number] [place] [address] Jan, [facility] [address] [id number] [place] [address] Jan, [facility] [address] [id number] [place] [address] Jan, [facility] [address] [id number] [place] [address] Jan, [facility] [address] [id number] [place] [address] Jan, [facility] [address] [id number] [facility] [place] [address] Jan, [facility] [address] [id number] [place] [address] Jan, [facility] [address] [id number] [place] [address] Dec, [facility] [address] [id number] [place] [address] Dec, [facility] [address] [id number] [place] [address] Dec, [facility] [address] [id number] [place] [address] Dec, [facility] [address] [id number] [place] [address] Dec, [facility] [address] [id number] [place] [address] Dec, [facility] [address] [id number] [place] [address] Dec, [facility] [address] [id number] [place] [address] Dec, [facility] [address] [id number] [place] [address] Dec, [facility] [address] [id number] [place] [address] Dec, [facility] [address] [id number] [place] [address] Dec, [facility] [address] [id number] [place] [address] Nov, [facility] [address] [id number] [place] [address] Nov, [facility] [address] [id number] [place] [address] Nov, [facility] [id number] [place] [address] Nov, [facility] [id number] [place] [address] Nov, [facility] [id number] [place] [address] Nov, [facility] [address] [address] Nov, [facility] [address] [address] Nov, [facility] [address] [address] Nov, [facility] [address] [address] Nov, [facility] [address] [address] October, IMMUNIZATIONS No Known Immunizations SOCIAL HISTORY [...]
[2019-11-15] MEDS ORDERED: LACTATED RINGERS 1,000 ML IV STA ×2 (09:47→11:16)
[2019-11-15 09:56] LABS: BASOPHILS % (AUTO) 0 % (0-10); EOSINOPHILS % (AUTO) 0 % (0-10); HEMATOCRIT 42 % (35-52); HEMOGLOBIN 13.5 G/DL (11.5-16.0); LYMPHOCYTES # (AUTO) 2.1 X 10^3 (1.0-4.0); LYMPHOCYTES % (AUTO) 31 % (12-44); MEAN CORPUSCULAR HEMOGLOBIN 28 PG (25-34); MEAN CORPUSCULAR HGB CONC 32 G/DL (32-36); MEAN CORPUSCULAR VOLUME 89 FL (80-99); MONOCYTES # (AUTO) 0.6 X 10^3 (0.0-1.0); MONOCYTES % (AUTO) 8 % (0-12); NEUTROPHILS # (AUTO) 4.1 X 10^3 (1.8-7.8); NEUTROPHILS % (AUTO) 60 % (42-75); PLATELET COUNT 470 10^3/uL (130-400); RED CELL DISTRIBUTION WIDTH 15.9 % (10.0-14.5); WHITE BLOOD COUNT 6.8 10^3/uL (4.3-11.0)
--- OUTSIDE RECORDS SUMMARY | 2019-11-15 09:59 | XMS REPORT | Continuity of Care Document ---
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 Ot Z53.21 PROC/TRTMT NOT CRD OUT D/T PT LV BEF SEE 11/02/2015 ZAHRAA BARNES, MARY T Ot G43.909 MIGRAINE, UNSP, NOT INTRACTABLE, WITHOUT 11/02/2015 ZAHRAA BARNES, MARY T Ot Z53.21 PROC/TRTMT NOT CRD OUT D/T PT LV BEF SEE 11/05/2015 ZAHRAA BARNES, MARY T Ot G43.909 MIGRAINE, UNSP, NOT INTRACTABLE, WITHOUT 11/05/2015 ZAHRAA BARNES, MARY T Ot Z53.21 PROC/TRTMT NOT CRD OUT D/T PT LV BEF SEE 11/27/2015 JORGE LUIS DURAN MD Ot R11.2 NAUSEA WITH VOMITING, UNSPECIFIED 11/29/2015 JORGE LUIS DURAN MD Ot R11.2 NAUSEA WITH VOMITING, UNSPECIFIED 01/31/2016 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 Ot E87 .6 HYPOKALEMIA 01/31/2016 FAMILIA ELISE APRN Ot R10.30 LOWER ABDOMINAL PAIN, UNSPECIFIED 01/31/2016 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 Ot R11 .2 NAUSEA WITH VOMITING, UNSPECIFIED 02/01/2016 FAMILIA ELISE APRN Ot E87 .6 HYPOKALEMIA 02/01/2016 FAMILIA ELISE APRN Ot R10.30 LOWER ABDOMINAL PAIN, UNSPECIFIED 02/01/2016 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 Ot R11 .2 NAUSEA WITH VOMITING, UNSPECIFIED 02/02/2016 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 Ot E87 .6 HYPOKALEMIA 02/02/2016 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 Ot R10.30 LOWER ABDOMINAL PAIN, UNSPECIFIED 02/02/2016 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 Ot R11 .2 NAUSEA WITH VOMITING, UNSPECIFIED 07/23/2017 Ot 625.9 FEM GENITAL SYMPTOMS NOS 07/23/2017 Ot 789.07 ABD OMINAL PAIN, GENERALIZED 07/23/2017 CORTNEY BARNES, BLANE Lange Ot 780.39 OTHER CONVULSIONS 07/23/2017 IRENE MCKEON MD Ot M54. 5 LOW BACK PAIN 07/23/2017 PENNY ALMAZAN DO Ot Z01.818 ENCOUNTER FOR OTHER PREPROCEDURAL EXAMIN 07/23/2017 MADL, DIONY L AIRPLANE ELECTRICAL REPAIRER Ot E87 .6 HYPOKALEMIA 07/24/2017 MADL, DIONY L AIRPLANE ELECTRICAL REPAIRER Ot R74 .8 ABNORMAL LEVELS OF OTHER SERUM ENZYMES 07/24/2017 MADL, DIONY L AIRPLANE ELECTRICAL REPAIRER Ot Z90.49 ACQUIRED ABSENCE OF OTHER SPECIFIED PART 07/29/2017 MADL, DIONY L AIRPLANE ELECTRICAL REPAIRER Ot R74 .8 ABNORMAL LEVELS OF OTHER SERUM ENZYMES 07/29/2017 MADL, DIONY L AIRPLANE ELECTRICAL REPAIRER Ot Z90.49 ACQUIRED ABSENCE OF OTHER SPECIFIED PART 09/11/2017 MADL, DIONY L AIRPLANE ELECTRICAL REPAIRER Ot R74 .8 ABNORMAL LEVELS OF OTHER SERUM ENZYMES 09/11/2017 MADL, DIONY L AIRPLANE ELECTRICAL REPAIRER Ot Z90.49 ACQUIRED ABSENCE OF OTHER SPECIFIED PART 09/11/2017 MADL, DIONY L AIRPLANE ELECTRICAL REPAIRER Ot R74 .8 ABNORMAL LEVELS OF OTHER SERUM ENZYMES 09/11/2017 MADL, DIONY L AIRPLANE ELECTRICAL REPAIRER Ot Z90.49 ACQUIRED ABSENCE OF OTHER SPECIFIED PART 09/11/2017 MADL, DIONY L AIRPLANE ELECTRICAL REPAIRER Ot R74 .8 ABNORMAL LEVELS OF OTHER SERUM ENZYMES 09/11/2017 MADL, DIONY L AIRPLANE ELECTRICAL REPAIRER Ot Z90.49 ACQUIRED ABSENCE OF OTHER SPECIFIED PART 09/11/2017 BLANE BARR MD Ot 780.39 OTHER CONVULSIONS 09/11/2017 IRENE MCKEON MD Ot M54. 5 LOW BACK PAIN 09/11/2017 PENNY ALMAZAN DO Ot Z01.818 ENCOUNTER FOR OTHER PREPROCEDURAL EXAMIN 09/11/2017 MADL, DIONY L AIRPLANE ELECTRICAL REPAIRER Ot E87 .6 HYPOKALEMIA 09/11/2017 MADL, DIONY L AIRPLANE ELECTRICAL REPAIRER Ot R74 .8 ABNORMAL LEVELS OF OTHER SERUM ENZYMES 09/11/2017 MADL, DIONY L AIRPLANE ELECTRICAL REPAIRER Ot Z90.49 ACQUIRED ABSENCE OF OTHER SPECIFIED PART 10/17/2017 MADL, DIONY L AIRPLANE ELECTRICAL REPAIRER Ot R74 .8 ABNORMAL LEVELS OF OTHER SERUM ENZYMES 10/17/2017 MADL, DIONY L AIRPLANE ELECTRICAL REPAIRER Ot Z90.49 ACQUIRED ABSENCE OF OTHER SPECIFIED PART 10/17/2017 MADL, DIONY L AIRPLANE ELECTRICAL REPAIRER Ot R74 .8 ABNORMAL LEVELS OF OTHER SERUM ENZYMES 10/17/2017 MADL, DIONY L AIRPLANE ELECTRICAL REPAIRER Ot Z90.49 ACQUIRED ABSENCE OF OTHER SPECIFIED PART 01/12/2018 Ot F32.9 TAMMI R DEPRESSIVE DISORDER, SINGLE EPISOD 01/12/2018 Ot F41.9 ANXI ETY DISORDER, UNSPECIFIED 01/12/2018 Ot G40.909 EP ILEPSY, UNSP, NOT INTRACTABLE, WITHOUT 01/12/2018 Ot J45.909 UN SPECIFIED ASTHMA, UNCOMPLICATED 01/12/2018 Ot K02.9 DENT AL CARIES, UNSPECIFIED 01/12/2018 Ot R51 HEADACHE 01/12/2018 Ot Z80.8 FAMI LY HISTORY OF MALIGNANT NEOPLASM OF 01/12/2018 Ot Z85.038 PE RSONAL HISTORY OF MALIGNANT NEOPLASM O 01/12/2018 Ot Z85.41 PER JULY HISTORY OF MALIGNANT NEOPLASM O 01/12/2018 Ot Z86.19 PER JULY HISTORY OF OTHER INFECTIOUS AND 01/12/2018 Ot Z87.19 PER JULY HISTORY OF OTHER DISEASES OF TH 01/12/2018 Ot Z87.440 PE RSONAL HISTORY OF URINARY (TRACT) INFE 01/12/2018 Ot Z88.5 MAX RGY STATUS TO NARCOTIC AGENT STATUS 01/12/2018 Ot Z88.6 MAX RGY STATUS TO ANALGESIC AGENT STATUS 01/12/2018 Ot Z88.8 MAX RGY STATUS TO OTH DRUG/MEDS/BIOL SUB 01/12/2018 Ot Z90.710 AC QUIRED ABSENCE OF BOTH CERVIX AND UTER 01/12/2018 Ot Z98.51 TUB AL LIGATION STATUS 01/22/2018 Ot 625.9 FEM GENITAL SYMPTOMS NOS 01/22/2018 Ot V88.01 ACQ UIRED ABSENCE OF BOTH CERVIX AND UTER 01/22/2018 Ot 625.9 FEM GENITAL SYMPTOMS NOS 01/22/2018 Ot 789.07 ABD OMINAL PAIN, GENERALIZED 01/22/2018 CORTNEY BARNES, BLANE Lange Ot 780.39 OTHER CONVULSIONS 01/22/2018 MIKE BARNES, IRENE Chapman Ot M54. 5 LOW BACK PAIN 01/22/2018 PENNY ALMAZAN DO Ot Z01.818 ENCOUNTER FOR OTHER PREPROCEDURAL EXAMIN 01/22/2018 MADL, DIONY L AIRPLANE ELECTRICAL REPAIRER Ot E87 .6 HYPOKALEMIA 01/22/2018 MADL, DIONY L AIRPLANE ELECTRICAL REPAIRER Ot R74 .8 ABNORMAL LEVELS OF OTHER SERUM ENZYMES 01/22/2018 MADL, DIONY L AIRPLANE ELECTRICAL REPAIRER Ot Z90.49 ACQUIRED ABSENCE OF OTHER SPECIFIED PART 05/15/2018 Ot F32.9 TAMMI R DEPRESSIVE DISORDER, SINGLE EPISOD 05/15/2018 Ot F41.9 ANXI ETY DISORDER, UNSPECIFIED 05/15/2018 Ot G40.909 EP ILEPSY, UNSP, NOT INTRACTABLE, WITHOUT 05/15/2018 Ot J45.909 UN SPECIFIED ASTHMA, UNCOMPLICATED 05/15/2018 Ot K02.9 DENT AL CARIES, UNSPECIFIED 05/15/2018 Ot R51 HEADACHE 05/15/2018 Ot Z80.8 FAMI LY HISTORY OF MALIGNANT NEOPLASM OF 05/15/2018 Ot Z85.038 PE RSONAL HISTORY OF MALIGNANT NEOPLASM O 05/15/2018 Ot Z85.41 PER JULY HISTORY OF MALIGNANT NEOPLASM O 05/15/2018 Ot Z86.19 PER JULY HISTORY OF OTHER INFECTIOUS AND 05/15/2018 Ot Z87.19 PER JULY HISTORY OF OTHER DISEASES OF TH 05/15/2018 Ot Z87.440 PE RSONAL HISTORY OF URINARY (TRACT) INFE 05/15/2018 Ot Z88.5 MAX RGY STATUS TO NARCOTIC AGENT STATUS 05/15/2018 Ot Z88.6 MAX RGY STATUS TO ANALGESIC AGENT STATUS 05/15/2018 Ot Z88.8 MAX RGY STATUS TO OTH DRUG/MEDS/BIOL SUB 05/15/2018 Ot Z90.710 AC QUIRED ABSENCE OF BOTH CERVIX AND UTER 05/15/2018 Ot Z98.51 TUB AL LIGATION STATUS 08/11/2018 PAULA COLINDRES MD Ot A08. 4 VIRAL INTESTINAL INFECTION, UNSPECIFIED 08/11/2018 PAULA COLINDRES MD Ot E86. 0 DEHYDRATION 08/11/2018 PAUAL COLINDRES MD Ot F32. 9 MAJOR DEPRESSIVE DISORDER, SINGLE EPISOD 08/11/2018 PAULA COLINDRES MD Ot F41. 9 ANXIETY DISORDER, UNSPECIFIED 08/11/2018 PAULA COLINDRES MD Ot G40.909 EPILEPSY, UNSP, NOT INTRACTABLE, WITHOUT 08/11/2018 PAULA COLINDRES MD Ot J45.909 UNSPECIFIED ASTHMA, UNCOMPLICATED 08/11/2018 PAULA COLINDRES MD Ot K58. 9 IRRITABLE BOWEL SYNDROME WITHOUT DIARRHE 08/11/2018 PAULA COLINDRES MD Ot R11. 10 VOMITING, UNSPECIFIED 08/11/2018 PAULA COLINDRES MD Ot Z85.038 PERSONAL HISTORY OF MALIGNANT NEOPLASM O 08/11/2018 PAULA COLINDRES MD Ot Z85. 41 PERSONAL HISTORY OF MALIGNANT NEOPLASM O 08/11/2018 PAULA COLINDRES MD Ot Z86. 19 PERSONAL HISTORY OF OTHER INFECTIOUS AND 08/11/2018 PAULA COLINDRES MD Ot Z87.440 PERSONAL HISTORY OF URINARY (TRACT) INFE 08/11/2018 PAULA COLINDRES MD Ot Z87.448 PERSONAL HISTORY OF OTHER DISEASES OF UR 08/11/2018 PAULA COLINDRES MD Ot Z88. 5 ALLERGY STATUS TO NARCOTIC AGENT STATUS 08/11/2018 PAULA COLINDRES MD Ot Z88. 6 ALLERGY STATUS TO ANALGESIC AGENT STATUS 08/11/2018 PAULA COLINDRES MD Ot Z88. 8 ALLERGY STATUS TO OTH DRUG/MEDS/BIOL SUB 08/11/2018 PAULA COLINDRES MD Ot Z90.710 ACQUIRED ABSENCE OF BOTH CERVIX AND UTER 08/11/2018 PAULA COLINDRES MD Ot Z98. 51 TUBAL LIGATION STATUS 08/12/2018 SADAF WALSH Ot A08.4 VIRAL INTESTINAL INFECTION, UNSPECIFIED 08/12/2018 SADAF WALSH Ot F32.9 MAJOR DEPRESSIVE DISORDER, SINGLE EPISOD 08/12/2018 SADAF WALSH Ot F41.9 ANXIETY DISORDER, UNSPECIFIED 08/12/2018 JILLIAN SADAF Ot G40.909 EPILEPSY, UNSP, NOT INTRACTABLE, WITHOUT 08/12/2018 JOVAN WALSHIS Ot J45.909 UNSPECIFIED ASTHMA, UNCOMPLICATED 08/12/2018 KATHIEHAYES SADAF Ot K58.9 IRRITABLE BOWEL SYNDROME WITHOUT DIARRHE 08/12/2018 KATHIEHAYES SADAF Ot R11.2 NAUSEA WITH VOMITING, UNSPECIFIED 08/12/2018 SADAF WALSH Ot Z85.038 PERSONAL HISTORY OF MALIGNANT NEOPLASM O 08/12/2018 JOVAN WALSHIS Ot Z85.41 PERSONAL HISTORY OF MALIGNANT NEOPLASM O 08/12/2018 SADAF WALSH Ot Z87.19 PERSONAL HISTORY OF OTHER DISEASES OF TH 08/12/2018 SADAF WALSH Ot Z87.440 PERSONAL HISTORY OF URINARY (TRACT) INFE 08/12/2018 SADAF WALSH Ot Z88.5 ALLERGY STATUS TO NARCOTIC AGENT STATUS 08/12/2018 SADAF WALSH Ot Z88.6 ALLERGY STATUS TO ANALGESIC AGENT STATUS 08/12/2018 SADAF WALSH Ot Z88.8 ALLERGY STATUS TO OTH DRUG/MEDS/BIOL SUB 08/12/2018 JILLIAN SADAF Ot Z90.710 ACQUIRED ABSENCE OF BOTH CERVIX AND UTER 08/12/2018 SADAF WALSH Ot Z98.51 TUBAL LIGATION STATUS 08/12/2018 SADAF WALSH Ot Z98.890 OTHER SPECIFIED POSTPROCEDURAL STATES 08/13/2018 JENS BARNES, PAULA J Ot A08. 4 VIRAL INTESTINAL INFECTION, UNSPECIFIED 08/13/2018 JENS BARNES, PAULA Chapman Ot E86. 0 DEHYDRATION 08/13/2018 JENS BARNES, PAULA J Ot F32. 9 MAJOR DEPRESSIVE DISORDER, SINGLE EPISOD 08/13/2018 JENS BARNES, PAULA Chapman Ot F41. 9 ANXIETY DISORDER, UNSPECIFIED 08/13/2018 JENS BARNES, PAULA Chapman Ot G40.909 EPILEPSY, UNSP, NOT INTRACTABLE, WITHOUT 08/13/2018 JENS BARNES, PAULA J Ot J45.909 UNSPECIFIED ASTHMA, UNCOMPLICATED 08/13/2018 JENS BARNES, PAULA J Ot K58. 9 IRRITABLE BOWEL SYNDROME WITHOUT DIARRHE 08/13/2018 PAULA COLINDRES MD J Ot R11. 10 VOMITING, UNSPECIFIED 08/13/2018 PAULA COLINDRES MD Ot Z85.038 PERSONAL HISTORY OF MALIGNANT NEOPLASM O 08/13/2018 PAULA COLINDRES MD Ot Z85. 41 PERSONAL HISTORY OF MALIGNANT NEOPLASM O 08/13/2018 PAULA COLINDRES MD Ot Z86. 19 PERSONAL HISTORY OF OTHER INFECTIOUS AND 08/13/2018 PAULA COLINDRES MD Ot Z87.440 PERSONAL HISTORY OF URINARY (TRACT) INFE 08/13/2018 PAULA COLINDRES MD Ot Z87.448 PERSONAL HISTORY OF OTHER DISEASES OF UR 08/13/2018 PAULA COLINDRES MD Ot Z88. 5 ALLERGY STATUS TO NARCOTIC AGENT STATUS 08/13/2018 PAULA COLINDRES MD Ot Z88. 6 ALLERGY STATUS TO ANALGESIC AGENT STATUS 08/13/2018 PAULA COLINDRES MD Ot Z88. 8 ALLERGY STATUS TO OTH DRUG/MEDS/BIOL SUB 08/13/2018 PAULA COLINDRES MD Ot Z90.710 ACQUIRED ABSENCE OF BOTH CERVIX AND UTER 08/13/2018 PAULA COLIDNRES MD Ot Z98. 51 TUBAL LIGATION STATUS 08/14/2018 JILLIAN SADAF Ot A08.4 VIRAL INTESTINAL INFECTION, UNSPECIFIED 08/14/2018 BERNJOVAN KOOIS Ot F32.9 MAJOR DEPRESSIVE DISORDER, SINGLE EPISOD 08/14/2018 JOVAN WALSHIS Ot F41.9 ANXIETY DISORDER, UNSPECIFIED 08/14/2018 BERNOT SADAF Ot G40.909 EPILEPSY, UNSP, NOT INTRACTABLE, WITHOUT 08/14/2018 KATHIEOT SADAF Ot J45.909 UNSPECIFIED ASTHMA, UNCOMPLICATED 08/14/2018 BERNOT SADAF Ot K58.9 IRRITABLE BOWEL SYNDROME WITHOUT DIARRHE 08/14/2018 BERNOT SADAF Ot R11.2 NAUSEA WITH VOMITING, UNSPECIFIED 08/14/2018 BERNOT SADAF Ot Z85.038 PERSONAL HISTORY OF MALIGNANT NEOPLASM O 08/14/2018 SADAF WALSH Ot Z85.41 PERSONAL HISTORY OF MALIGNANT NEOPLASM O 08/14/2018 JOVAN WALSHIS Ot Z87.19 PERSONAL HISTORY OF OTHER DISEASES OF TH 08/14/2018 JOVAN WALSHIS Ot Z87.440 PERSONAL HISTORY OF URINARY (TRACT) INFE 08/14/2018 JOVAN WALSHIS Ot Z88.5 ALLERGY STATUS TO NARCOTIC AGENT STATUS 08/14/2018 BERNHAYES SADAF Ot Z88.6 ALLERGY STATUS TO ANALGESIC AGENT STATUS 08/14/2018 BERNHAYES SADAF Ot Z88.8 ALLERGY STATUS TO OTH DRUG/MEDS/BIOL SUB 08/14/2018 BERNHAYES SADAF Ot Z90.710 ACQUIRED ABSENCE OF BOTH CERVIX AND UTER 08/14/2018 BERNJOVAN KOOIS Ot Z98.51 TUBAL LIGATION STATUS 08/14/2018 BERNHAYES SADAF Ot Z98.890 OTHER SPECIFIED POSTPROCEDURAL STATES 08/18/2018 BERNHAYES SADAF Ot A08.4 VIRAL INTESTINAL INFECTION, UNSPECIFIED 08/18/2018 BERNHAYES SADAF Ot F32.9 MAJOR DEPRESSIVE DISORDER, SINGLE EPISOD 08/18/2018 JILLIAN SADAF Ot F41.9 ANXIETY DISORDER, UNSPECIFIED 08/18/2018 JILLIAN SADAF Ot G40.909 EPILEPSY, UNSP, NOT INTRACTABLE, WITHOUT 08/18/2018 JILLIAN SADAF Ot J45.909 UNSPECIFIED ASTHMA, UNCOMPLICATED 08/18/2018 JILLIAN SADAF Ot K58.9 IRRITABLE BOWEL SYNDROME WITHOUT DIARRHE 08/18/2018 JILLIAN SADAF Ot R11.2 NAUSEA WITH VOMITING, UNSPECIFIED 08/18/2018 BERNOT SADAF Ot Z85.038 PERSONAL HISTORY OF MALIGNANT NEOPLASM O 08/18/2018 JILLIAN SADAF Ot Z85.41 PERSONAL HISTORY OF MALIGNANT NEOPLASM O 08/18/2018 JILLIAN SADAF Ot Z87.19 PERSONAL HISTORY OF OTHER DISEASES OF TH 08/18/2018 JOVAN WALSHIS Ot Z87.440 PERSONAL HISTORY OF URINARY (TRACT) INFE 08/18/2018 JOVAN WALSHIS Ot Z88.5 ALLERGY STATUS TO NARCOTIC AGENT STATUS 08/18/2018 JILLIAN SADAF Ot Z88.6 ALLERGY STATUS TO ANALGESIC AGENT STATUS 08/18/2018 JOVAN WALSHIS Ot Z88.8 ALLERGY STATUS TO OTH DRUG/MEDS/BIOL SUB 08/18/2018 JOVAN WALSHIS Ot Z90.710 ACQUIRED ABSENCE OF BOTH CERVIX AND UTER 08/18/2018 BERNJOVAN KOOIS Ot Z98.51 TUBAL LIGATION STATUS 08/18/2018 JOVAN WALSHIS Ot Z98.890 OTHER SPECIFIED POSTPROCEDURAL STATES 09/05/2018 JENS BARNES, PAULA J Ot A08. 4 VIRAL INTESTINAL INFECTION, UNSPECIFIED 09/05/2018 PAULA COLINDRES MD Ot F32. 9 MAJOR DEPRESSIVE DISORDER, SINGLE EPISOD 09/05/2018 PAULA COLINDRES MD Ot F41. 9 ANXIETY DISORDER, UNSPECIFIED 09/05/2018 PAULA COLINDRES MD J Ot G40.909 EPILEPSY, UNSP, NOT INTRACTABLE, WITHOUT 09/05/2018 PAULA COLINDRES MD J Ot J45.909 UNSPECIFIED ASTHMA, UNCOMPLICATED 09/05/2018 PAULA COLINDRES MD Ot K58. 9 IRRITABLE BOWEL SYNDROME WITHOUT DIARRHE 09/05/2018 PAULA COLINDRES MD Ot R11. 2 NAUSEA WITH VOMITING, UNSPECIFIED 09/05/2018 PAULA COLINDRES MD Ot Z85.038 PERSONAL HISTORY OF MALIGNANT NEOPLASM O 09/05/2018 PAULA COLINDRES MD Ot Z85. 41 PERSONAL HISTORY OF MALIGNANT NEOPLASM O 09/05/2018 PAULA COLINDRES MD Ot Z86. 19 PERSONAL HISTORY OF OTHER INFECTIOUS AND 09/05/2018 PAULA COLINDRES MD Ot Z87.440 PERSONAL HISTORY OF URINARY (TRACT) INFE 09/05/2018 PAULA COLINDRES MD Ot Z88. 5 ALLERGY STATUS TO NARCOTIC AGENT STATUS 09/05/2018 PAULA COLINDRES MD Ot Z88. 6 ALLERGY STATUS TO ANALGESIC AGENT STATUS 09/05/2018 PAULA COLINDRES MD Ot Z88. 8 ALLERGY STATUS TO OTH DRUG/MEDS/BIOL SUB 09/05/2018 PAULA COLINDRES MD Ot Z90.710 ACQUIRED ABSENCE OF BOTH CERVIX AND UTER 09/05/2018 PAULA COLINDRES MD Ot Z98. 51 TUBAL LIGATION STATUS 09/05/2018 PAULA COLINDRES MD Ot Z98.890 OTHER SPECIFIED POSTPROCEDURAL STATES 09/09/2018 SADAF WALSH Ot F32.9 MAJOR DEPRESSIVE DISORDER, SINGLE EPISOD 09/09/2018 SADAF WALSH Ot F41.9 ANXIETY DISORDER, UNSPECIFIED 09/09/2018 SADAF WALSH Ot G40.909 EPILEPSY, UNSP, NOT INTRACTABLE, WITHOUT 09/09/2018 SADAF WALSH Ot J45.909 UNSPECIFIED ASTHMA, UNCOMPLICATED 09/09/2018 SADAF WALSH Ot K58.9 IRRITABLE BOWEL SYNDROME WITHOUT DIARRHE 09/09/2018 SADAF WALSH Ot N39.0 URINARY TRACT INFECTION, SITE NOT SPECIF 09/09/2018 SADAF WALSH Ot R11.10 VOMITING, UNSPECIFIED 09/09/2018 JOVAN WALSHIS Ot Z85.038 PERSONAL HISTORY OF MALIGNANT NEOPLASM O 09/09/2018 JOVAN WALSHIS Ot Z85.41 PERSONAL HISTORY OF MALIGNANT NEOPLASM O 09/09/2018 JOVAN WALSHIS Ot Z86.19 PERSONAL HISTORY OF OTHER INFECTIOUS AND 09/09/2018 JOVAN WALSHIS Ot Z87.440 PERSONAL HISTORY OF URINARY (TRACT) INFE 09/09/2018 SADAF WALSH Ot Z87.448 PERSONAL HISTORY OF OTHER DISEASES OF UR 09/09/2018 SADAF WALSH Ot Z88.5 ALLERGY STATUS TO NARCOTIC AGENT STATUS 09/09/2018 SADAF WALSH Ot Z88.6 ALLERGY STATUS TO ANALGESIC AGENT STATUS 09/09/2018 SADAF WALSH Ot Z88.8 ALLERGY STATUS TO OTH DRUG/MEDS/BIOL SUB 09/09/2018 SADAF WALSH Ot Z90.710 ACQUIRED ABSENCE OF BOTH CERVIX AND UTER 09/09/2018 SADAF WALSH Ot Z98.51 TUBAL LIGATION STATUS 09/11/2018 SADAF WALSH Ot F32.9 MAJOR DEPRESSIVE DISORDER, SINGLE EPISOD 09/11/2018 SADAF WALSH Ot F41.9 ANXIETY DISORDER, UNSPECIFIED 09/11/2018 JOVAN WALSHIS Ot G40.909 EPILEPSY, UNSP, NOT INTRACTABLE, WITHOUT 09/11/2018 SADAF WALSH Ot J45.909 UNSPECIFIED ASTHMA, UNCOMPLICATED 09/11/2018 SADAF WALSH Ot K58.9 IRRITABLE BOWEL SYNDROME WITHOUT DIARRHE 09/11/2018 SADAF WALSH Ot N39.0 URINARY TRACT INFECTION, SITE NOT SPECIF 09/11/2018 SADAF WALSH Ot R11.10 VOMITING, UNSPECIFIED 09/11/2018 JOVAN WALSHIS Ot Z85.038 PERSONAL HISTORY OF MALIGNANT NEOPLASM O 09/11/2018 JOVAN WALSHIS Ot Z85.41 PERSONAL HISTORY OF MALIGNANT NEOPLASM O 09/11/2018 JOVAN WALSHIS Ot Z86.19 PERSONAL HISTORY OF OTHER INFECTIOUS AND 09/11/2018 JOVAN WALSHIS Ot Z87.440 PERSONAL HISTORY OF URINARY (TRACT) INFE 09/11/2018 SADAF WALSH Ot Z87.448 PERSONAL HISTORY OF OTHER DISEASES OF UR 09/11/2018 SADAF WALSH Ot Z88.5 ALLERGY STATUS TO NARCOTIC AGENT STATUS 09/11/2018 SADAF WALSH Ot Z88.6 ALLERGY STATUS TO ANALGESIC AGENT STATUS 09/11/2018 SADAF WALSH Ot Z88.8 ALLERGY STATUS TO OTH DRUG/MEDS/BIOL SUB 09/11/2018 SADAF WALSH Ot Z90.710 ACQUIRED ABSENCE OF BOTH CERVIX AND UTER 09/11/2018 SADAF WALSH Ot Z98.51 TUBAL LIGATION STATUS 10/01/2018 ZAHRAA BARNES, MARY Hudson Ot F32.9 MAJOR DEPRESSIVE DISORDER, SINGLE EPISOD 10/01/2018 MARY VITAL MD Ot F41.9 ANXIETY DISORDER, UNSPECIFIED 10/01/2018 MARY VITAL MD Ot G40.909 EPILEPSY, UNSP, NOT INTRACTABLE, WITHOUT 10/01/2018 MARY VITAL MD Ot J45.909 UNSPECIFIED ASTHMA, UNCOMPLICATED 10/01/2018 MARY VITAL MD Ot K58.9 IRRITABLE BOWEL SYNDROME WITHOUT DIARRHE 10/01/2018 MARY VITAL MD Ot R10.10 UPPER ABDOMINAL PAIN, UNSPECIFIED 10/01/2018 MARY VITAL MD Ot R11.2 NAUSEA WITH VOMITING, UNSPECIFIED 10/01/2018 MARY VITAL MD Ot Z85.038 PERSONAL HISTORY OF MALIGNANT NEOPLASM O 10/01/2018 MARY VITAL MD Ot Z85.41 PERSONAL HISTORY OF MALIGNANT NEOPLASM O 10/01/2018 MARY VITAL MD Ot Z86.19 PERSONAL HISTORY OF OTHER INFECTIOUS AND 10/01/2018 MARY VITAL MD Ot Z88.5 ALLERGY STATUS TO NARCOTIC AGENT STATUS 10/01/2018 MARY VITAL MD Ot Z88.6 ALLERGY STATUS TO ANALGESIC AGENT STATUS 10/01/2018 MARY VITAL MD Ot Z88.8 ALLERGY STATUS TO OTH DRUG/MEDS/BIOL SUB 10/01/2018 MARY VITAL MD Ot Z90.49 ACQUIRED ABSENCE OF OTHER SPECIFIED PART 10/01/2018 MARY VITAL MD Ot Z90.710 ACQUIRED ABSENCE OF BOTH CERVIX AND UTER 10/01/2018 MARY VITAL MD, Ot Z98.51 TUBAL LIGATION STATUS 10/01/2018 MARY VITAL MD, Ot Z98.890 OTHER SPECIFIED POSTPROCEDURAL STATES 10/03/2018 MARY VITAL MD, Ot F32.9 MAJOR DEPRESSIVE DISORDER, SINGLE EPISOD 10/03/2018 MARY VITAL MD, Ot F41.9 ANXIETY DISORDER, UNSPECIFIED 10/03/2018 MARY VITAL MD, Ot G40.909 EPILEPSY, UNSP, NOT INTRACTABLE, WITHOUT 10/03/2018 MARY VITAL MD, Ot J45.909 UNSPECIFIED ASTHMA, UNCOMPLICATED 10/03/2018 MARY VITAL MD, Ot K58.9 IRRITABLE BOWEL SYNDROME WITHOUT DIARRHE 10/03/2018 MARY VITAL MD, Ot R10.10 UPPER ABDOMINAL PAIN, UNSPECIFIED 10/03/2018 MARY VITAL MD, Ot R11.2 NAUSEA WITH VOMITING, UNSPECIFIED 10/03/2018 MARY VITAL MD Ot Z85.038 PERSONAL HISTORY OF MALIGNANT NEOPLASM O 10/03/2018 MARY VITLA MD, Ot Z85.41 PERSONAL HISTORY OF MALIGNANT NEOPLASM O 10/03/2018 MARY VITAL MD, Ot Z86.19 PERSONAL HISTORY OF OTHER INFECTIOUS AND 10/03/2018 MARY VITAL MD, Ot Z88.5 ALLERGY STATUS TO NARCOTIC AGENT STATUS 10/03/2018 MARY VITAL MD, Ot Z88.6 ALLERGY STATUS TO ANALGESIC AGENT STATUS 10/03/2018 MARY VITAL MD, Ot Z88.8 ALLERGY STATUS TO OTH DRUG/MEDS/BIOL SUB 10/03/2018 MARY VITAL MD, Ot Z90.49 ACQUIRED ABSENCE OF OTHER SPECIFIED PART 10/03/2018 MARY VITAL MD, Ot Z90.710 ACQUIRED ABSENCE OF BOTH CERVIX AND UTER 10/03/2018 VIRAJ VITAL MDUA T Ot Z98.51 TUBAL LIGATION STATUS 10/03/2018 MARY VITAL MD Ot Z98.890 OTHER SPECIFIED POSTPROCEDURAL STATES 11/19/2018 CHANTEL MAYORGA DO Ot F12.10 CANNABIS ABUSE, UNCOMPLICATED 11/19/2018 CHANTEL MAYORGA DO Ot F32.9 MAJOR DEPRESSIVE DISORDER, SINGLE EPISOD 11/19/2018 CHANTEL MAYORGA DO Ot F41.9 ANXIETY DISORDER, UNSPECIFIED 11/19/2018 CHANTEL MAYORGA DO Ot G40.909 EPILEPSY, UNSP, NOT INTRACTABLE, WITHOUT 11/19/2018 KIANA MAYORGA DOA Nazario Ot G43.909 MIGRAINE, UNSP, NOT INTRACTABLE, WITHOUT 11/19/2018 MUKESH CHANTEL MOSER Ot J45.909 UNSPECIFIED ASTHMA, UNCOMPLICATED 11/19/2018 MUKESH CHANTEL MOSER Ot R11.2 NAUSEA WITH VOMITING, UNSPECIFIED 11/19/2018 MUKESH CHANTEL MOSER Ot Z82.49 FAMILY HX OF ISCHEM HEART DIS AND OTH DI 11/19/2018 CHANTEL MAYORGA DO Ot Z87.440 PERSONAL HISTORY OF URINARY (TRACT) INFE 11/19/2018 CHANTEL MAYORGA DO Ot Z87.448 PERSONAL HISTORY OF OTHER DISEASES OF UR 11/19/2018 CHANTEL MAYORGA DO Ot Z88.5 ALLERGY STATUS TO NARCOTIC AGENT STATUS 11/19/2018 CHANTEL MAYORGA DO Ot Z88.6 ALLERGY STATUS TO ANALGESIC AGENT STATUS 11/19/2018 CHANTEL MAYORGA DO Ot Z88.8 ALLERGY STATUS TO OTH DRUG/MEDS/BIOL SUB 11/19/2018 HCANTEL MAYORGA DO Ot Z90.710 ACQUIRED ABSENCE OF BOTH CERVIX AND UTER 11/19/2018 CHANTEL MAYORGA DO Ot Z95.9 PRESENCE OF CARDIAC AND VASCULAR IMPLANT 11/19/2018 CHANTEL MAYORGA DO Ot Z96.0 PRESENCE OF UROGENITAL IMPLANTS 11/19/2018 CHANTEL MAYORGA DO Ot Z98.51 TUBAL LIGATION STATUS 11/19/2018 CHANTEL MAYORGA DO Ot Z98.890 OTHER SPECIFIED POSTPROCEDURAL STATES 11/20/2018 CHANTEL MAYORGA DO Ot F12.10 CANNABIS ABUSE, UNCOMPLICATED 11/20/2018 MUKESH CHANTEL Nazario Ot F32.9 MAJOR DEPRESSIVE DISORDER, SINGLE EPISOD 11/20/2018 MUKESH CHANTEL Nazario Ot F41.9 ANXIETY DISORDER, UNSPECIFIED 11/20/2018 MUKESH CHANTEL Nazario Ot G40.909 EPILEPSY, UNSP, NOT INTRACTABLE, WITHOUT 11/20/2018 MUKESH CHANTEL Nazario Ot G43.909 MIGRAINE, UNSP, NOT INTRACTABLE, WITHOUT 11/20/2018 MUKESH CHANTEL Nazario Ot J45.909 UNSPECIFIED ASTHMA, UNCOMPLICATED 11/20/2018 [place] CHANTEL Nazario Ot R11.2 NAUSEA WITH VOMITING, UNSPECIFIED 11/20/2018 MUKESH CHANTEL Nazario Ot Z82.49 FAMILY HX OF ISCHEM HEART DIS AND OTH DI 11/20/2018 MUKESH CHANTEL K Ot Z87.440 PERSONAL HISTORY OF URINARY (TRACT) INFE 11/20/2018 MUKESH CHANTEL K Ot Z87.448 PERSONAL HISTORY OF OTHER DISEASES OF UR 11/20/2018 [place] DO CHANTEL K Ot Z88.5 ALLERGY STATUS TO NARCOTIC AGENT STATUS 11/20/2018 [place] DO CHANTEL K Ot Z88.6 ALLERGY STATUS TO ANALGESIC AGENT STATUS 11/20/2018 [place] DO CHANTEL K Ot Z88.8 ALLERGY STATUS TO OTH DRUG/MEDS/BIOL SUB 11/20/2018 MUKESH CHANTEL K Ot Z90.710 ACQUIRED ABSENCE OF BOTH CERVIX AND UTER 11/20/2018 [place] DO CHANTEL K Ot Z95.9 PRESENCE OF CARDIAC AND VASCULAR IMPLANT 11/20/2018 [place] CHANTEL MOSER Ot Z96.0 PRESENCE OF UROGENITAL IMPLANTS 11/20/2018 M[place] CHANTEL MOSER Ot Z98.51 TUBAL LIGATION STATUS 11/20/2018 [place] DO CHANTEL K Ot Z98.890 OTHER SPECIFIED POSTPROCEDURAL STATES 11/22/2018 Mejia Mclaughlin 276.8 HYPOPOTASSEMIA 11/22/2018 Mejia Mclaughlin 535.10 ATROPHIC GASTRITIS, WITHOUT MENTION OF HEMORRHAGE 11/22/2018 Mejia Mclaughlin 787.01 NAUSEA WITH VOMITING 11/22/2018 Mejia Mclaughlin 791.9 OTHER NONSPECIFIC FINDINGS ON EXAMINATION OF URINE 11/22/2018 Mejia Mclaughlin E87.6 HYPOKALEMIA 11/22/2018 Mejia Mclaughlin W K29.50 UNSPECIFIED CHRONIC GASTRITIS WITHOUT BLEEDING 11/22/2018 Mejia Mclaughlin R11.2 NAUSEA WITH VOMITING, UNSPECIFIED 11/22/2018 Mejia Mclaughlin R82.998 OTHER ABNORMAL FINDINGS IN URINE 11/24/2018 CHANTEL MAYORGA DO Ot F12.10 CANNABIS ABUSE, UNCOMPLICATED 11/24/2018 CHANTEL MAYORGA DO Ot F32.9 MAJOR DEPRESSIVE DISORDER, SINGLE EPISOD 11/24/2018 CHANTEL MAYORGA DO Ot F41.9 ANXIETY DISORDER, UNSPECIFIED 11/24/2018 CHANTEL MAYORGA DO Ot G40.909 EPILEPSY, UNSP, NOT INTRACTABLE, WITHOUT 11/24/2018 CHANTEL MAYORGA DO Ot G43.909 MIGRAINE, UNSP, NOT INTRACTABLE, WITHOUT 11/24/2018 CHANTEL MAYORGA DO Ot J45.909 UNSPECIFIED ASTHMA, UNCOMPLICATED 11/24/2018 CHANTEL MAYORGA DO Ot R11.2 NAUSEA WITH VOMITING, UNSPECIFIED 11/24/2018 CHANTEL MAYORGA DO Ot Z82.49 FAMILY HX OF ISCHEM HEART DIS AND OTH DI 11/24/2018 CHANTEL MAYORGA DO Ot Z87.440 PERSONAL HISTORY OF URINARY (TRACT) INFE 11/24/2018 CHANTEL MAYORGA DO Ot Z87.448 PERSONAL HISTORY OF OTHER DISEASES OF UR 11/24/2018 CHANTEL MAYORGA DO Ot Z88.5 ALLERGY STATUS TO NARCOTIC AGENT STATUS 11/24/2018 CHANTEL MAYORGA DO Ot Z88.6 ALLERGY STATUS TO ANALGESIC AGENT STATUS 11/24/2018 CHANTEL MAYORGA DO Ot Z88.8 ALLERGY STATUS TO OTH DRUG/MEDS/BIOL SUB 11/24/2018 CHANTEL MAYORGA DO Ot Z90.710 ACQUIRED ABSENCE OF BOTH CERVIX AND UTER 11/24/2018 CHANTEL MAYORGA DO Ot Z95.9 PRESENCE OF CARDIAC AND VASCULAR IMPLANT 11/24/2018 CHANTEL MAYORGA DO Ot Z96.0 PRESENCE OF UROGENITAL IMPLANTS 11/24/2018 CHANTEL MAYORGA DO Ot Z98.51 TUBAL LIGATION STATUS 11/24/2018 CHANTEL MAYORGA DO Ot Z98.890 OTHER SPECIFIED POSTPROCEDURAL STATES 12/16/2018 MUKESH CHANTEL K Ot F12.10 CANNABIS ABUSE, UNCOMPLICATED 12/16/2018 [place] CHANTEL K Ot F41.9 ANXIETY DISORDER, UNSPECIFIED 12/16/2018 [place] CHNATEL K Ot G40.909 EPILEPSY, UNSP, NOT INTRACTABLE, WITHOUT 12/16/2018 MUK[place] DO CHANTEL K Ot G43.909 MIGRAINE, UNSP, NOT INTRACTABLE, WITHOUT 12/16/2018 MUK[place] DO CHANTEL K Ot I10 ESSENTIAL (PRIMARY) HYPERTENSION 12/16/2018 [facility] CHANTEL K Ot I25.10 ATHSCL HEART DISEASE OF [place] CORONARY 12/16/2018 [place] CHANTEL Nazario Ot J45.909 UNSPECIFIED ASTHMA, UNCOMPLICATED 12/16/2018 [place] CHANTEL K Ot K58.9 IRRITABLE BOWEL SYNDROME WITHOUT DIARRHE 12/16/2018 [facility] CHANTEL K Ot R07.89 OTHER CHEST PAIN 12/16/2018 [facility] CHANTEL K Ot R10.13 EPIGASTRIC PAIN 12/16/2018 [facility] CHANTEL K Ot R11.2 NAUSEA WITH VOMITING, UNSPECIFIED 12/16/2018 [place] CHANTEL K Ot Z85.038 PERSONAL HISTORY OF MALIGNANT NEOPLASM O 12/16/2018 [place] CHANTEL K Ot Z85.41 PERSONAL HISTORY OF MALIGNANT NEOPLASM O 12/16/2018 [facility] CHANTEL K Ot Z87.440 PERSONAL HISTORY OF URINARY (TRACT) INFE 12/16/2018 [facility] CHANTEL K Ot Z88.5 ALLERGY STATUS TO NARCOTIC AGENT STATUS 12/16/2018 [facility] CHANTEL K Ot Z88.6 ALLERGY STATUS TO ANALGESIC AGENT STATUS 12/16/2018 [facility] CHANTEL K Ot Z90.710 ACQUIRED ABSENCE OF BOTH CERVIX AND UTER 12/16/2018 [place] CHANTEL K Ot Z98.51 TUBAL LIGATION STATUS 12/23/2018 [place] CHANTEL K Ot F12.10 CANNABIS ABUSE, UNCOMPLICATED 12/23/2018 [place] CHANTEL K Ot F41.9 ANXIETY DISORDER, UNSPECIFIED 12/23/2018 [facility] CHANTEL K Ot G40.909 EPILEPSY, UNSP, NOT INTRACTABLE, WITHOUT 12/23/2018 MUK[place] DO CHANTEL K Ot G43.909 MIGRAINE, UNSP, NOT INTRACTABLE, WITHOUT 12/23/2018 MUKESH KIANAA Nazario Ot I10 ESSENTIAL (PRIMARY) HYPERTENSION 12/23/2018 [facility] CHANTEL K Ot I25.10 ATHSCL HEART DISEASE OF [place] CORONARY 12/23/2018 [place] CHANTEL Nazario Ot J45.909 UNSPECIFIED ASTHMA, UNCOMPLICATED 12/23/2018 [place] CHANTEL Ot K58.9 IRRITABLE BOWEL SYNDROME WITHOUT DIARRHE 12/23/2018 [place] CHANTEL Ot R07.89 OTHER CHEST PAIN 12/23/2018 MUKESH KIANAA Nazario Ot R10.13 EPIGASTRIC PAIN 12/23/2018 MUKESH KIANAA Nazario Ot R11.2 NAUSEA WITH VOMITING, UNSPECIFIED 12/23/2018 [place] CHANTEL K Ot Z85.038 PERSONAL HISTORY OF MALIGNANT NEOPLASM O 12/23/2018 [place] CHANTEL Ot Z85.41 PERSONAL HISTORY OF MALIGNANT NEOPLASM O 12/23/2018 [place] CHANTEL Ot Z87.440 PERSONAL HISTORY OF URINARY (TRACT) INFE 12/23/2018 [place] CHANTEL Nazario Ot Z88.5 ALLERGY STATUS TO NARCOTIC AGENT STATUS 12/23/2018 [place] CHANTEL Ot Z88.6 ALLERGY STATUS TO ANALGESIC AGENT STATUS 12/23/2018 MUKESH KIANAA Nazario Ot Z90.710 ACQUIRED ABSENCE OF BOTH CERVIX AND UTER 12/23/2018 [place] CHANTEL Ot Z98.51 TUBAL LIGATION STATUS 01/29/2019 PENNY ALMAZAN DO Ot E87. 6 HYPOKALEMIA 01/29/2019 PENNY ALMAZAN DO Ot F32. 9 MAJOR DEPRESSIVE DISORDER, SINGLE EPISOD 01/29/2019 PENNY ALMAZAN DO Ot F41. 9 ANXIETY DISORDER, UNSPECIFIED 01/29/2019 PENNY ALMAZAN DO Ot G40.909 EPILEPSY, UNSP, NOT INTRACTABLE, WITHOUT 01/29/2019 PENNY ALMAZAN DO Ot G43.909 MIGRAINE, UNSP, NOT INTRACTABLE, WITHOUT 01/29/2019 PENNY ALMAZAN DO Ot I10 ESSENTIAL (PRIMARY) HYPERTENSION 01/29/2019 PENNY ALMAZAN DO Ot J45.909 UNSPECIFIED ASTHMA, UNCOMPLICATED 01/29/2019 PENNY ALMAZAN DO Ot K52. 9 NONINFECTIVE GASTROENTERITIS AND COLITIS 01/29/2019 PENNY ALMAZAN DO Ot K56.690 OTHER PARTIAL INTESTINAL OBSTRUCTION 01/29/2019 PENNY ALMAZAN DO Ot K58. 9 IRRITABLE BOWEL SYNDROME WITHOUT DIARRHE 01/29/2019 ALMAZAN PENNY MOSER Ot K59. 00 CONSTIPATION, UNSPECIFIED 01/29/2019 ALMAZAN PENNY MOSER Ot M54. 9 DORSALGIA, UNSPECIFIED 01/29/2019 ALMAZAN PENNY MOSER Ot Z87.891 PERSONAL HISTORY OF NICOTINE DEPENDENCE 03/05/2019 KRAIG JIMENEZ MD Ot E87 .6 HYPOKALEMIA 03/05/2019 KRAIG JIMENEZ MD Ot F12.90 CANNABIS USE, UNSPECIFIED, UNCOMPLICATED 03/05/2019 KRAIG JIMENEZ MD Ot F41 .8 OTHER SPECIFIED ANXIETY DISORDERS 03/05/2019 KRAIG JIMENEZ MD Ot G40.909 EPILEPSY, UNSP, NOT INTRACTABLE, WITHOUT 03/05/2019 KRAIG JIMENEZ MD Ot G43.909 MIGRAINE, UNSP, NOT INTRACTABLE, WITHOUT 03/05/2019 KRAIG JIMENEZ MD Ot G89.29 OTHER CHRONIC PAIN 03/05/2019 KRAIG JIMENEZ MD Ot K22 .9 DISEASE OF ESOPHAGUS, UNSPECIFIED 03/05/2019 KRAIG JIMENEZ MD Ot K31.89 OTHER DISEASES OF STOMACH AND DUODENUM 03/05/2019 KRAIG JIMENEZ MD Ot K44 .9 DIAPHRAGMATIC HERNIA WITHOUT OBSTRUCTION 03/05/2019 KRAIG JIMENEZ MD Ot K52 .9 NONINFECTIVE GASTROENTERITIS AND COLITIS 03/05/2019 KRAIG JIMENEZ MD Ot M54 .9 DORSALGIA, UNSPECIFIED 03/05/2019 KRAIG JIMENEZ MD, Ot Z79.899 OTHER NURSING HOME (CURRENT) DRUG THERAPY 03/05/2019 KRAIG JIMENEZ MD Ot Z80 .8 FAMILY HISTORY OF MALIGNANT NEOPLASM OF 03/05/2019 KRAIG JIMENEZ MD Ot Z83 .3 FAMILY HISTORY OF DIABETES MELLITUS 03/05/2019 KRAIG JIMENEZ MD, Ot Z88 .5 ALLERGY STATUS TO NARCOTIC AGENT STATUS 03/05/2019 KRAIG JIMENEZ MD Ot Z88 .8 ALLERGY STATUS TO OTH DRUG/MEDS/BIOL SUB 03/05/2019 KRAIG JIMENEZ MD Ot Z90.710 ACQUIRED ABSENCE OF BOTH CERVIX AND UTER 03/05/2019 KRAIG JIMENEZ MD Ot Z98.51 TUBAL LIGATION STATUS 03/10/2019 BERNOT, SADAF Ot F32.9 MAJOR DEPRESSIVE DISORDER, SINGLE EPISOD 03/10/2019 BERNOT, SADAF Ot F41.9 ANXIETY DISORDER, UNSPECIFIED 03/10/2019 BERNOT, SADAF Ot G40.909 EPILEPSY, UNSP, NOT INTRACTABLE, WITHOUT 03/10/2019 BERNOT, SADAF Ot G43.909 MIGRAINE, UNSP, NOT INTRACTABLE, WITHOUT 03/10/2019 BERNOT, SADAF Ot J45.909 UNSPECIFIED ASTHMA, UNCOMPLICATED 03/10/2019 BERNOT, SADAF Ot K58.9 IRRITABLE BOWEL SYNDROME WITHOUT DIARRHE 03/10/2019 BERNOT, SADAF Ot R11.2 NAUSEA WITH VOMITING, UNSPECIFIED 03/10/2019 BERNOT, SADAF Ot R19.7 DIARRHEA, UNSPECIFIED 03/10/2019 BERNOT, SADAF Ot Z85.038 PERSONAL HISTORY OF MALIGNANT NEOPLASM O 03/10/2019 BERNOT, SADAF Ot Z85.41 PERSONAL HISTORY OF MALIGNANT NEOPLASM O 03/10/2019 BERNOT, SADAF Ot Z88.5 ALLERGY STATUS TO NARCOTIC AGENT STATUS 03/10/2019 BERNOT, SADAF Ot Z88.6 ALLERGY STATUS TO ANALGESIC AGENT STATUS 03/10/2019 BERNOT, SADAF Ot Z88.8 ALLERGY STATUS TO OTH DRUG/MEDS/BIOL SUB 03/10/2019 BERNOT, SADAF Ot Z90.710 ACQUIRED ABSENCE OF BOTH CERVIX AND UTER 03/10/2019 BERNOT, SADAF Ot Z98.51 TUBAL LIGATION STATUS 03/13/2019 KRAIG JIMENEZ MD Ot E87 .6 HYPOKALEMIA 03/13/2019 KRAIG JIMENEZ MD Ot F12.90 CANNABIS USE, UNSPECIFIED, UNCOMPLICATED 03/13/2019 KRAIG JIMENEZ MD Ot F41 .8 OTHER SPECIFIED ANXIETY DISORDERS 03/13/2019 KRAIG JIMENEZ MD Ot G40.909 EPILEPSY, UNSP, NOT INTRACTABLE, WITHOUT 03/13/2019 KRAIG JIMENEZ MD, Ot G43.909 MIGRAINE, UNSP, NOT INTRACTABLE, WITHOUT 03/13/2019 KRAIG JIMENEZ MD Ot G89.29 OTHER CHRONIC PAIN 03/13/2019 KRAIG JIMENEZ MD, Ot K22 .9 DISEASE OF ESOPHAGUS, UNSPECIFIED 03/13/2019 KRAIG JIMENEZ MD Ot K31.89 OTHER DISEASES OF STOMACH AND DUODENUM 03/13/2019 KRAIG JIMENEZ MD Ot K44 .9 DIAPHRAGMATIC HERNIA WITHOUT OBSTRUCTION 03/13/2019 KRAIG JIMENEZ MD, Ot K52 .9 NONINFECTIVE GASTROENTERITIS AND COLITIS 03/13/2019 KRAIG JIMENEZ MD, Ot M54 .9 DORSALGIA, UNSPECIFIED 03/13/2019 KRAIG JIMENEZ MD Ot Z79.899 OTHER NURSING HOME (CURRENT) DRUG THERAPY 03/13/2019 KRAIG JIMENEZ MD Ot Z80 .8 FAMILY HISTORY OF MALIGNANT NEOPLASM OF 03/13/2019 KRAIG JIMENEZ MD Ot Z83 .3 FAMILY HISTORY OF DIABETES MELLITUS 03/13/2019 KRAIG JIMENEZ MD, Ot Z88 .5 ALLERGY STATUS TO NARCOTIC AGENT STATUS 03/13/2019 KRAIG JIMENEZ MD, Ot Z88 .8 ALLERGY STATUS TO OTH DRUG/MEDS/BIOL SUB 03/13/2019 KRAIG JIMENEZ MD Ot Z90.710 ACQUIRED ABSENCE OF BOTH CERVIX AND UTER 03/13/2019 KRAIG JIMENEZ MD Ot Z98.51 TUBAL LIGATION STATUS 03/14/2019 KRAIG JIMENEZ MD Ot E87 .6 HYPOKALEMIA 03/14/2019 KRAIG JIMENEZ MD Ot F12.90 CANNABIS USE, UNSPECIFIED, UNCOMPLICATED 03/14/2019 KRAIG JIMENEZ MD Ot F41 .8 OTHER SPECIFIED ANXIETY DISORDERS 03/14/2019 KRAIG JIMENEZ MD Ot G40.909 EPILEPSY, UNSP, NOT INTRACTABLE, WITHOUT 03/14/2019 KRAIG JIMENEZ MD Ot G43.909 MIGRAINE, UNSP, NOT INTRACTABLE, WITHOUT 03/14/2019 KRAIG JIMENEZ MD Ot G89.29 OTHER CHRONIC PAIN 03/14/2019 KRAIG JIMENEZ MD, Ot K22 .9 DISEASE OF ESOPHAGUS, UNSPECIFIED 03/14/2019 KRAIG JIMENEZ MD, Ot K31.89 OTHER DISEASES OF STOMACH AND DUODENUM 03/14/2019 KRAIG JIMENEZ MD, Ot K44 .9 DIAPHRAGMATIC HERNIA WITHOUT OBSTRUCTION 03/14/2019 KRAIG JIMENEZ MD, Ot K52 .9 NONINFECTIVE GASTROENTERITIS AND COLITIS 03/14/2019 KRAIG JIMENEZ MD, Ot M54 .9 DORSALGIA, UNSPECIFIED 03/14/2019 KRAIG JIMENEZ MD, Ot Z79.899 OTHER NURSING HOME (CURRENT) DRUG THERAPY 03/14/2019 KRAIG JIMENEZ MD, Ot Z80 .8 FAMILY HISTORY OF MALIGNANT NEOPLASM OF 03/14/2019 KRAIG JIMENEZ MD, Ot Z83 .3 FAMILY HISTORY OF DIABETES MELLITUS 03/14/2019 KRAIG JIMENEZ MD, Ot Z88 .5 ALLERGY STATUS TO NARCOTIC AGENT STATUS 03/14/2019 KRAIG JIMENEZ MD, Ot Z88 .8 ALLERGY STATUS TO OTH DRUG/MEDS/BIOL SUB 03/14/2019 KRAIG JIMENEZ MD Ot Z90.710 ACQUIRED ABSENCE OF BOTH CERVIX AND UTER 03/14/2019 KRAIG JIMENEZ MD Ot Z98.51 TUBAL LIGATION STATUS 03/17/2019 SADAF WALSH Ot F32.9 MAJOR DEPRESSIVE DISORDER, SINGLE EPISOD 03/17/2019 JOVAN WALSHIS Ot F41.9 ANXIETY DISORDER, UNSPECIFIED 03/17/2019 JILLIAN SADAF Ot G40.909 EPILEPSY, UNSP, NOT INTRACTABLE, WITHOUT 03/17/2019 JOVAN WALSHIS Ot G43.909 MIGRAINE, UNSP, NOT INTRACTABLE, WITHOUT 03/17/2019 JILLIAN SADAF Ot J45.909 UNSPECIFIED ASTHMA, UNCOMPLICATED 03/17/2019 JOVAN WALSHIS Ot K58.9 IRRITABLE BOWEL SYNDROME WITHOUT DIARRHE 03/17/2019 SADAF WALSH Ot R11.2 NAUSEA WITH VOMITING, UNSPECIFIED 03/17/2019 JILLIAN SADAF Ot R19.7 DIARRHEA, UNSPECIFIED 03/17/2019 JOVAN WALSHIS Ot Z85.038 PERSONAL HISTORY OF MALIGNANT NEOPLASM O 03/17/2019 SADAF WALSH Ot Z85.41 PERSONAL HISTORY OF MALIGNANT NEOPLASM O 03/17/2019 JILLIAN SADAF Ot Z88.5 ALLERGY STATUS TO NARCOTIC AGENT STATUS 03/17/2019 JILLIAN SADAF Ot Z88.6 ALLERGY STATUS TO ANALGESIC AGENT STATUS 03/17/2019 JILLIAN SADAF Ot Z88.8 ALLERGY STATUS TO OTH DRUG/MEDS/BIOL SUB 03/17/2019 SADAF WALSH Ot Z90.710 ACQUIRED ABSENCE OF BOTH CERVIX AND UTER 03/17/2019 SADAF WALSH Ot Z98.51 TUBAL LIGATION STATUS 03/24/2019 FABIAN BARNES, DUNG Shannon Ot F32. 9 MAJOR DEPRESSIVE DISORDER, SINGLE EPISOD 03/24/2019 FABIAN BARNES, DUNG Shannon Ot F41. 9 ANXIETY DISORDER, UNSPECIFIED 03/24/2019 FABIAN BARNES, DUNG Shannon Ot G40.909 EPILEPSY, UNSP, NOT INTRACTABLE, WITHOUT 03/24/2019 FABIAN BARNES, DUNG Shannon Ot G43.909 MIGRAINE, UNSP, NOT INTRACTABLE, WITHOUT 03/24/2019 FABIAN BARNES, DUNG Shannon Ot J45.909 UNSPECIFIED ASTHMA, UNCOMPLICATED 03/24/2019 FABIAN BARNES, DUNG Shannon Ot K58. 9 IRRITABLE BOWEL SYNDROME WITHOUT DIARRHE 03/24/2019 FABIAN BARNES, DUNG Shannon Ot R11. 2 NAUSEA WITH VOMITING, UNSPECIFIED 03/24/2019 FABIAN BARNES, DUNG Shannon Ot Z85.038 PERSONAL HISTORY OF MALIGNANT NEOPLASM O 03/24/2019 FABIAN BARNES, DUNG Shannon Ot Z85. 41 PERSONAL HISTORY OF MALIGNANT NEOPLASM O 03/24/2019 FABIAN BARNES, DUNG Shannon Ot Z88. 5 ALLERGY STATUS TO NARCOTIC AGENT STATUS 03/24/2019 FABIAN BARNES, DUNG Shannon Ot Z88. 6 ALLERGY STATUS TO ANALGESIC AGENT STATUS 03/24/2019 FABIAN BARNES, DUNG Shannon Ot Z88. 8 ALLERGY STATUS TO OTH DRUG/MEDS/BIOL SUB 03/24/2019 FABIAN BARNES, DUNG Shannon Ot Z90.710 ACQUIRED ABSENCE OF BOTH CERVIX AND UTER 03/24/2019 FABIAN BARNES, DUNG Shannon Ot Z98. 51 TUBAL LIGATION STATUS 03/27/2019 DUNG PERALTA MD Ot F32. 9 MAJOR DEPRESSIVE DISORDER, SINGLE EPISOD 03/27/2019 FABIAN BARNES, DUNG Shannon Ot F41. 9 ANXIETY DISORDER, UNSPECIFIED 03/27/2019 FABIAN BARNES, DUNG Shiva Ot G40.909 EPILEPSY, UNSP, NOT INTRACTABLE, WITHOUT 03/27/2019 FABIAN BARNES, DUNG Shannon Ot G43.909 MIGRAINE, UNSP, NOT INTRACTABLE, WITHOUT 03/27/2019 FABIAN BARNES, DUNG Shannon Ot J45.909 UNSPECIFIED ASTHMA, UNCOMPLICATED 03/27/2019 FABIAN BARNES, DUNG Shannon Ot K58. 9 IRRITABLE BOWEL SYNDROME WITHOUT DIARRHE 03/27/2019 FABIAN BARNES, DUNG Shiva Ot R11. 2 NAUSEA WITH VOMITING, UNSPECIFIED 03/27/2019 FABIAN BARNES, DUNG Shiva Ot Z85.038 PERSONAL HISTORY OF MALIGNANT NEOPLASM O 03/27/2019 FABIAN BARNES, DUNG Shannon Ot Z85. 41 PERSONAL HISTORY OF MALIGNANT NEOPLASM O 03/27/2019 FABIAN BARNES, DUNG Shannon Ot Z88. 5 ALLERGY STATUS TO NARCOTIC AGENT STATUS 03/27/2019 FABIAN BARNES, DUNG Shiva Ot Z88. 6 ALLERGY STATUS TO ANALGESIC AGENT STATUS 03/27/2019 FABIAN BARNES, DUNG Shiva Ot Z88. 8 ALLERGY STATUS TO OT DRUG/MEDS/BIOL SUB 03/27/2019 FABIAN BARNES, DUNG Shiva Ot Z90.710 ACQUIRED ABSENCE OF BOTH CERVIX AND UTER 03/27/2019 FABIAN BARNES, DUNG Shiva Ot Z98. 51 TUBAL LIGATION STATUS 10/22/2019 JORGE LUIS DURAN MD Ot F32.9 MAJOR DEPRESSIVE DISORDER, SINGLE EPISOD 10/22/2019 JORGE LUIS DURAN MD Ot F41.9 ANXIETY DISORDER, UNSPECIFIED 10/22/2019 JORGE LUIS DURAN MD Ot K58.9 IRRITABLE BOWEL SYNDROME WITHOUT DIARRHE 10/22/2019 JORGE LUIS DURAN MD Ot R10.13 EPIGASTRIC PAIN 10/22/2019 JORGE LUIS DURAN MD Ot R11.2 NAUSEA WITH VOMITING, UNSPECIFIED 10/22/2019 JORGE LUIS DURAN MD Ot Z82.49 FAMILY HX OF ISCHEM HEART DIS AND OTH DI 10/22/2019 JORGE LUIS DURAN MD Ot Z85.038 PERSONAL HISTORY OF MALIGNANT NEOPLASM O 10/22/2019 JORGE LUIS DURAN MD Ot Z85.41 PERSONAL HISTORY OF MALIGNANT NEOPLASM O 10/22/2019 JORGE LUIS DURAN MD Ot Z88.5 ALLERGY STATUS TO NARCOTIC AGENT STATUS 10/22/2019 JORGE LUIS DURAN MD Ot Z88.6 ALLERGY STATUS TO ANALGESIC AGENT STATUS 10/22/2019 JORGE LUIS DURAN MD Ot Z88.8 ALLERGY STATUS TO OTH DRUG/MEDS/BIOL SUB 2019 JORGE LUIS DURAN MD Ot F32.9 MAJOR DEPRESSIVE DISORDER, SINGLE EPISOD 2019 JORGE LUIS DURAN MD Ot F41.9 ANXIETY DISORDER, UNSPECIFIED 2019 JORGE LUIS DURAN MD Ot K58.9 IRRITABLE BOWEL SYNDROME WITHOUT DIARRHE 2019 JORGE LUIS DURAN MD Ot R10.13 EPIGASTRIC PAIN 2019 JORGE LUIS DURAN MD Ot R11.2 NAUSEA WITH VOMITING, UNSPECIFIED 2019 JORGE LUIS DURAN MD Ot Z82.49 FAMILY HX OF ISCHEM HEART DIS AND OTH DI 2019 JORGE LUIS DURAN MD Ot Z85.038 PERSONAL HISTORY OF MALIGNANT NEOPLASM O 2019 JORGE LUIS DURAN MD Ot Z85.41 PERSONAL HISTORY OF MALIGNANT NEOPLASM O 2019 JORGE LUIS DURAN MD Ot Z88.5 ALLERGY STATUS TO NARCOTIC AGENT STATUS 2019 JORGE LUIS DURAN MD Ot Z88.6 ALLERGY STATUS TO ANALGESIC AGENT STATUS 2019 JORGE LUIS DURAN MD Ot Z88.8 ALLERGY STATUS TO OTH DRUG/MEDS/BIOL SUB 10/31/2019 JORGE LUIS DURAN MD Ot F32.9 MAJOR DEPRESSIVE DISORDER, SINGLE EPISOD 10/31/2019 JORGE LUIS DURAN MD Ot F41.9 ANXIETY DISORDER, UNSPECIFIED 10/31/2019 JORGE LUIS DURAN MD Ot K58.9 IRRITABLE BOWEL SYNDROME WITHOUT DIARRHE 10/31/2019 JORGE LUIS DURAN MD Ot R10.13 EPIGASTRIC PAIN 10/31/2019 JORGE LUIS DURAN MD Ot R11.2 NAUSEA WITH VOMITING, UNSPECIFIED 10/31/2019 JORGE LUIS DURAN MD Ot Z82.49 FAMILY HX OF ISCHEM HEART DIS AND OTH DI 10/31/2019 JORGE LUIS DURAN MD Ot Z85.038 PERSONAL HISTORY OF MALIGNANT NEOPLASM O 10/31/2019 JORGE LUIS DURAN MD Ot Z85.41 PERSONAL HISTORY OF MALIGNANT NEOPLASM O 10/31/2019 JORGE LUIS DURAN MD Ot Z88.5 ALLERGY STATUS TO NARCOTIC AGENT STATUS 10/31/2019 JORGE LUIS DURAN MD Ot Z88.6 ALLERGY STATUS TO ANALGESIC AGENT STATUS 10/31/2019 JORGE LUIS DURAN MD, Ot Z88.8 ALLERGY STATUS TO OTH DRUG/MEDS/BIOL SUB Procedures Code [place] [address] ROUT INE VENIPUNCTURE 11/06/2012 52979 UA W / CULTURE IF INDICATED 11/06/2012 04667 CBC 11/06/2012 02841 ESR/ SED RATE 11/06/2012 22522 CMP 11/06/2012 4553215 GF R CALC (RESULT ONLY) 11/06/2012 69634 TSH 11/06/2012 9255950 TAMIN B 12 FOLIC ACID (RESULT ONLY) 11/06/2012 99375 OC MIN D 25-HYDROXY (D2,D3, TOTAL) 11/06/2012 79420 A1C (RML) 11/10/2012 81408 URIN E DRUG SCREEN (IN-HOUSE) 06/16/2013 71137 URIN E METHADONE GC/MS 09/10/2013 62343 URIN E DRUG SCREEN (IN-HOUSE) 09/10/2013 77367 PSYC H DIAGNOSTIC EVALUATION 05/25/2014 72612 [employer] 08/25/2014 2000F BLOO D PRESSURE CHECK 09/15/2014 Results Test Result Range Complete blood count (CBC) with automate d white blood cell (WBC) differential - 01/31/16 16:27 Blood leukocytes automated count (number/volume) 9.4 10*3/uL 4.3-11.0 Blood erythrocytes automated count (number/volume) 4.94 10*6/uL 4.35-5.85 Venous blood hemoglobin measurement (mass/volume) 13.8 g/dL 11.5-16.0 Blood hematocrit (volume fraction) 41 % 35-52 Automated erythrocyte mean corpuscular volume 83 [ foz_us] 80-99 Automated erythrocyte mean corpuscular h emoglobin (mass per erythrocyte) 28 pg 25-34 Automated erythrocyte mean corpuscular h emoglobin concentration measurement (mass/volume) 34 g/dL 32-36 Automated erythrocyte distribution width ratio 15. 7 % 10.0- 14.5 Automated blood platelet count [...] 10*3 1.0-4.0 Blood monocytes automated count (number/volume) 0. 6 10*3 0.0-1.0 Automated eosinophil count 0.0 10*3/uL 0 .0-0.3 Automated blood basophil count (count/volume) 0.0 10*3/uL 0.0-0.1 Comprehensive metabolic panel - 01/31/16 16:27 Serum or plasma sodium measurement (moles/volume) 141 mmol/L 135-145 Serum or plasma potassium measurement (moles/volume) 3.1 mmol/L 3.6-5.0 Serum or plasma chloride measurement (moles/volume) 107 mmol/L 98-107 Carbon dioxide 25 mmol/L 21-32 Serum or plasma anion gap determination (moles/volume) 9 mmol/L 5-14 Serum or plasma urea nitrogen measurement (mass/volume ) 10 mg/dL 7-18 Serum or plasma creatinine measurement (mass/volume) 0.79 mg/dL 0.60-1.30 Serum or plasma urea nitrogen/creatinine mass ratio 13 NRG Serum or plasma creatinine measurement w ith calculation of estimated glomerular filtration rate > NRG Serum or plasma glucose measurement (mass/volume) 128 mg/dL 70-105 Serum or plasma calcium measurement (mass/volume) 9.4 mg/dL 8.5-10.1 Serum or plasma total bilirubin measurement (mass/volu me) 0.6 mg/dL 0.1-1.0 Serum or plasma alkaline phosphatase justa surement (enzymatic activity/volume) 78 U/L 40-136 Serum or plasma aspartate aminotransfera se measurement (enzymatic activity/volume) 134 U/L 5-34 Serum or plasma alanine aminotransferase measurement (enzymatic activity/volume) 89 U/L 0-55 Serum or plasma protein measurement (mass/volume) 7.0 g/dL 6.4-8.2 Serum or plasma albumin measurement (mass/volume) 4.3 g/dL 3.2-4.5 Lipase - 01/31/16 16:27 Lipase 52 U/L 8-78 Complete urinalysis with reflex to cultu re - 01/31/16 18:40 Urine color determination YELLOW NRG Urine clarity determination SLIGHTLY CLOUDY NRG Urine pH measurement by test strip 6 5-9 Specific gravity of urine by test strip 1.015 1.016-1.022 Urine protein assay by test strip, semi-quantitative 1+ NEGATIVE Urine glucose detection by automated test strip NE GATIVE NEGATIVE Erythrocytes detection in urine sediment by light micr oscopy 1+ NEGATIVE Urine ketones detection by automated test strip 2+ NEGATIVE Urine nitrite detection by test strip NEGATIVE NEGATIVE Urine total bilirubin detection by test strip NEGA TIVE NEGATIVE Urine urobilinogen measurement by automated test strip (mass/volume) 1 mg/dL NORMAL Urine leukocyte esterase detection by dipstick NEG ATIVE NEGATIVE Automated urine sediment erythrocyte cou nt by microscopy (number/high power field) NONE NRG Automated urine sediment leukocyte count by microscopy (number/high power field) [HPF] NRG Bacteria detection in urine sediment by light microsco py TRACE NRG Squamous epithelial cells detection in u rine sediment by light microscopy NONE NRG Crystals detection in urine sediment by light microsco py NONE NRG Casts detection in urine sediment by light microscopy NONE NRG Mucus detection in urine sediment by light microscopy MODERATE NRG Complete urinalysis with reflex to culture NO NRG Urine drug screening test - 01/31/16 18: 40 Urine phencyclidine detection by screening method NEGATIVE NEGATIVE Urine benzodiazepines detection by screening method NEGATIVE NEGATIVE Urine cocaine detection NEGATIVE NEGATI VE Urine amphetamines detection by screening method N EGATIVE NEGATIVE Urine methamphetamine detection by screening method NEGATIVE NEGATIVE Urine cannabinoids detection by screening method P OSITIVE NEGATIVE Urine opiates detection by screening method POSITI VE NEGATIVE Urine barbiturates detection NEGATIVE N EGATIVE Screening urine tricyclic antidepressants detection NEGATIVE NEGATIVE CBC With Differential/Platelet - 7 09:02 WBC 8.3 x10E3/uL 3.4-10.8 RBC 5.16 x10E6/uL 3.77-5.28 Hemoglobin 15.0 g/dL 11.1-15.9 Hematocrit 45.1 % 34.0-46.6 MCV 87 fL 79-97 MCH 29.1 pg 26.6-33.0 MCHC 33.3 g/dL 31.5-35.7 RDW 16.6 % 12.3-15.4 Platelets 404 x10E3/uL 150-379 Neutrophils 61 % Lymphs 31 % Monocytes 8 % Eos 0 % Basos 0 % Neutrophils (Absolute) 5.0 x10E3/uL 1.4- 7.0 Lymphs (Absolute) 2.5 x10E3/uL 0.7-3.1 Monocytes(Absolute) 0.6 x10E3/uL 0.1-0.9 Eos (Absolute) 0.0 x10E3/uL 0.0-0.4 Baso (Absolute) 0.0 x10E3/uL 0.0-0.2 Immature Granulocytes 0 % Immature Grans (Abs) 0.0 x10E3/uL 0.0-0. 1 Comp. Metabolic Panel (14) - 08/28/16 09 :02 Glucose, Serum 110 mg/dL 65-99 BUN 19 [...] 0-99 Basic Metabolic Panel (8) - 12/05/16 10: 33 Glucose, Serum 86 mg/dL 65-99 BUN 8 mg/dL 6-20 Creatinine, Serum 0.80 mg/dL 0.57-1.00 eGFR If NonAfricn Am 93 mL/min/1.73 >59 eGFR If Africn Am 107 mL/min/1.73 >5 9 BUN/Creatinine Ratio 10 9-23 Sodium, Serum 146 mmol/L 134-144 Potassium, Serum 4.0 mmol/L 3.5-5.2 Chloride, Serum 103 mmol/L 96-106 Carbon Dioxide, Total 26 mmol/L 18-29 Calcium, Serum 9.6 mg/dL 8.7-10.2 CBC With Differential/Platelet - 7 12:14 WBC 5.8 x10E3/uL 3.4-10.8 RBC 4.43 x10E6/uL 3.77-5.28 Hemoglobin 12.9 g/dL 11.1-15.9 Hematocrit 40.7 % 34.0-46.6 MCV 92 fL 79-97 MCH 29.1 pg 26.6-33.0 MCHC 31.7 g/dL 31.5-35.7 RDW 16.8 % 12.3-15.4 Platelets 316 x10E3/uL 150-379 Neutrophils 50 % Lymphs 43 % Monocytes 7 % Eos 0 % Basos 0 % Neutrophils (Absolute) 2.8 x10E3/uL 1.4- 7.0 Lymphs (Absolute) 2.5 x10E3/uL 0.7-3.1 Monocytes(Absolute) 0.4 x10E3/uL 0.1-0.9 Eos (Absolute) 0.0 x10E3/uL 0.0-0.4 Baso (Absolute) 0.0 x10E3/uL 0.0-0.2 Immature Granulocytes 0 % Immature Grans (Abs) 0.0 x10E3/uL 0.0-0. 1 Comp. Metabolic Panel (14) - 01/03/17 12 :14 Glucose, Serum 84 mg/dL 65-99 BUN 8 mg/dL 6-20 Creatinine, Serum 0.74 mg/dL 0.57-1.00 eGFR If NonAfricn Am 102 mL/min/1.73 >59 eGFR If Africn Am 118 mL/min/1.73 >5 9 BUN/Creatinine Ratio 11 9-23 Sodium, Serum 146 [...] 7-25 CREATININE 0.77 mg/dL 0.50-1.10 eGFR NON-AFR. BAHRAINI 97 mL/min/1.73m2 > OR = 60 eGFR 113 mL/min/1.73m2 > OR = 60 BUN/CREATININE RATIO NOT APPLICABLE (calc) 6-22 SODIUM 144 mmol/L 135-146 POTASSIUM 4.8 mmol/L 3.5-5.3 CHLORIDE 109 mmol/L 98-110 CARBON DIOXIDE 32 mmol/L 20-31 CALCIUM 9.2 mg/dL 8.6-10.2 PROTEIN, TOTAL 6.2 g/dL 6.1-8.1 ALBUMIN 3.9 g/dL 3.6-5.1 GLOBULIN 2.3 g/dL (calc) 1.9-3.7 ALBUMIN/GLOBULIN RATIO 1.7 (calc) 1.0-2. 5 BILIRUBIN, TOTAL 0.3 mg/dL 0.2-1.2 ALKALINE PHOSPHATASE 108 U/L 33-115 AST 80 U/L 10-30 ALT 204 U/L 11-29 HEPATITIS PROFILE - 05/02/17 14:19 HEPATITIS A IGM NON-REACTIVE NON-REACTI VE HEPATITIS B SURFACE ANTIGEN NON-REACTIVE NON-REACTIVE HEPATITIS B CORE ANTIBODY (IGM) NON-REACTIVE NON-REACTIVE HEPATITIS C ANTIBODY NON-REACTIVE NON-R EACTIVE SIGNAL TO CUT-OFF 0.02 <1.00 LIPID PANEL - 05/03/17 09:06 CHOLESTEROL, TOTAL 300 mg/dL <200 HDL CHOLESTEROL 115 mg/dL >50 TRIGLYCERIDES 122 mg/dL <150 LDL-CHOLESTEROL 161 mg/dL (calc) NRG CHOL/HDLC RATIO 2.6 (calc) <5.0 NON HDL CHOLESTEROL 185 mg/dL (calc) <13 0 LIPID PANEL - 08/12/17 08:20 CHOLESTEROL, TOTAL 268 mg/dL <200 HDL CHOLESTEROL 82 mg/dL >50 TRIGLYCERIDES 125 mg/dL <150 LDL-CHOLESTEROL 161 mg/dL (calc) NRG CHOL/HDLC RATIO 3.3 (calc) <5.0 NON HDL CHOLESTEROL 186 mg/dL (calc) <13 0 CMP - 08/12/17 08:20 GLUCOSE 91 mg/dL 65-99 UREA NITROGEN (BUN) 8 mg/dL 7-25 CREATININE 0.83 mg/dL 0.50-1.10 eGFR NON-AFR. BAHRAINI 89 mL/min/1.73m2 > OR = 60 eGFR 103 mL/min/1.73m2 > OR = 60 BUN/CREATININE RATIO NOT APPLICABLE (calc) 6-22 SODIUM 142 mmol/L 135-146 POTASSIUM 4.0 mmol/L 3.5-5.3 CHLORIDE 104 mmol/L 98-110 CARBON DIOXIDE 29 mmol/L 20-31 CALCIUM 10.1 mg/dL 8.6-10.2 PROTEIN, TOTAL 7.6 g/dL 6.1-8.1 ALBUMIN 4.4 g/dL 3.6-5.1 GLOBULIN 3.2 g/dL (calc) 1.9-3.7 ALBUMIN/GLOBULIN RATIO 1.4 (calc) 1.0-2. 5 BILIRUBIN, TOTAL 0.3 mg/dL 0.2-1.2 ALKALINE PHOSPHATASE 120 U/L 33-115 AST 25 U/L 10-30 ALT 47 U/L 6 CMP - 12/18/17 08:34 GLUCOSE 90 mg/dL 65-99 UREA NITROGEN (BUN) 11 mg/dL 7-25 CREATININE 0.89 mg/dL 0.50-1.10 eGFR NON-AFR. BAHRAINI 81 mL/min/1.73m2 > OR = 60 eGFR 94 mL/min/1.73m2 > OR = 60 BUN/CREATININE RATIO NOT APPLICABLE (calc) 6-22 SODIUM 142 mmol/L 135-146 POTASSIUM 3.8 mmol/L 3.5-5.3 CHLORIDE 105 mmol/L 98-110 CARBON DIOXIDE 28 mmol/L 20-31 CALCIUM 10.1 mg/dL 8.6-10.2 PROTEIN, TOTAL 7.5 g/dL 6.1-8.1 ALBUMIN 4.7 g/dL 3.6-5.1 GLOBULIN 2.8 g/dL (calc) 1.9-3.7 ALBUMIN/GLOBULIN RATIO 1.7 (calc) 1.0-2. 5 BILIRUBIN, TOTAL 0.4 mg/dL 0.2-1.2 ALKALINE PHOSPHATASE 114 U/L 33-115 AST 19 U/L 10-30 ALT 56 U/L 6-29 CBC - 05/02/18 14:57 WHITE BLOOD CELL COUNT 7.9 Thousand/uL 3 .8-10.8 RED BLOOD CELL COUNT 4.28 Million/uL 3.8 0-5.10 HEMOGLOBIN 12.5 g/dL 11.7-15.5 HEMATOCRIT 37.1 % 35.0-45.0 MCV 86.7 fL 80.0-100.0 MCH 29.2 pg 27.0-33.0 MCHC 33.7 g/dL 32.0-36.0 RDW 13.9 % 11.0-15.0 PLATELET COUNT 325 Thousand/uL 140-400 MPV 10.3 fL 7.5-12.5 ABSOLUTE NEUTROPHILS 4306 cells/uL 1500- 7800 ABSOLUTE LYMPHOCYTES 2860 cells/uL 850-3 900 ABSOLUTE MONOCYTES 664 cells/uL 200-950 ABSOLUTE EOSINOPHILS 47 cells/uL 15-500 ABSOLUTE BASOPHILS 24 cells/uL 0-200 NEUTROPHILS 54.5 % NRG LYMPHOCYTES 36.2 % NRG MONOCYTES 8.4 % NRG EOSINOPHILS 0.6 % NRG BASOPHILS 0.3 % NRG Complete blood count (CBC) with automate d white blood cell (WBC) differential - 08/11/18 08:20 Blood leukocytes automated count (number/volume) 9.5 10*3/uL 4.3-11.0 Blood erythrocytes automated count (number/volume) 4.86 10*6/uL 4.35-5.85 Venous blood hemoglobin measurement (mass/volume) 13.5 g/dL 11.5-16.0 Blood hematocrit (volume fraction) 43 % 35-52 Automated erythrocyte mean corpuscular volume 88 [ foz_us] 80-99 Automated erythrocyte mean corpuscular h emoglobin (mass per erythrocyte) 28 pg 25-34 Automated erythrocyte mean corpuscular h emoglobin concentration measurement (mass/volume) 32 g/dL 32-36 Automated erythrocyte distribution width ratio 14. 5 % 10.0- 14.5 Automated blood platelet count [...] 10*3 1.0-4.0 Blood monocytes automated count (number/volume) 0. 7 10*3 0.0-1.0 Automated eosinophil count 0.0 10*3/uL 0 .0-0.3 Automated blood basophil count (count/volume) 0.0 10*3/uL 0.0-0.1 Blood lactic acid measurement (moles/vol ume) - 08/11/18 08:20 Blood lactic acid measurement [...] 5-14 Serum or plasma urea nitrogen measurement (mass/volume ) 11 mg/dL 7-18 Serum or plasma creatinine measurement (mass/volume) 1.18 mg/dL 0.60-1.30 Serum or plasma urea nitrogen/creatinine mass ratio 9 NRG Serum or plasma creatinine measurement w ith calculation of estimated glomerular filtration rate 51 NRG Serum or plasma glucose measurement (mass/volume) 126 mg/dL 70-105 Serum or plasma calcium measurement (mass/volume) 10.5 mg/dL 8.5-10.1 Serum or plasma total bilirubin measurement (mass/volu me) 0.5 mg/dL 0.1-1.0 Serum or plasma alkaline phosphatase justa surement (enzymatic activity/volume) 91 U/L 40-136 Serum or plasma aspartate aminotransfera se measurement (enzymatic activity/volume) 38 U/L 5-34 Serum or plasma alanine aminotransferase measurement (enzymatic activity/volume) 36 U/L 0-55 Serum or plasma protein measurement (mass/volume) 8.2 g/dL 6.4-8.2 Serum or plasma albumin measurement (mass/volume) 4.9 g/dL 3.2-4.5 Influenza virus A and B antigen detectio n - 08/11/18 08:20 FLU RESULT NEGATIVE FOR INFLUENZA A AND B ANTIGENS BY IA NRG PT panel in platelet poor plasma by coag ulation assay - 08/11/18 08:20 Prothrombin time (PT) in platelet poor plasma by coagu lation assay 12.9 s 12.2-14.7 INR in platelet poor plasma or blood by coagulation as say 1.0 0.8-1.4 Activated partial thromboplastin time (a PTT) in platelet poor plasma bycoagulation assay - 08/11/18 08:20 Activated partial thromboplastin time (a PTT) in platelet poor plasma bycoagulation assay 27 s 24-35 Bacterial blood culture - 08/11/18 08:20 Bacterial blood culture NG NR Bacterial blood culture - 08/11/18 08:58 Bacterial blood culture NG NR Complete urinalysis with reflex to cultu re - 08/11/18 09:40 Urine color determination YELLOW NRG Urine clarity determination SLIGHTLY CLOUDY NRG Urine pH measurement by test strip 9 5-9 Specific gravity of urine by test strip 1.015 1.016-1.022 Urine protein assay by test strip, semi-quantitative 2+ NEGATIVE Urine glucose detection by automated test strip NE GATIVE NEGATIVE Erythrocytes detection in urine sediment by light micr oscopy NEGATIVE NEGATIVE Urine ketones detection by automated test strip 3+ NEGATIVE Urine nitrite detection by test strip NEGATIVE NEGATIVE Urine total bilirubin detection by test strip NEGA TIVE NEGATIVE Urine urobilinogen measurement by automated test strip (mass/volume) 1 mg/dL NORMAL Urine leukocyte esterase detection by dipstick 1+ NEGATIVE Automated urine sediment erythrocyte cou nt by microscopy (number/high power field) NONE NRG Automated urine sediment leukocyte count by microscopy (number/high power field) [HPF] NRG Bacteria detection in urine sediment by light microsco py FEW NRG Squamous epithelial cells detection in u rine sediment by light microscopy 10-25 NRG Crystals detection in urine sediment by light microsco py PRESENT NRG Casts detection in urine sediment by light microscopy NONE NRG Mucus detection in urine sediment by light microscopy NEGATIVE NRG Complete urinalysis with reflex to culture CULTURE PENDING NRG Amorphous sediment detection in urine sediment by ligh t microscopy FEW TETE PHOSPHATE NRG Bacterial urine culture - 08/11/18 09:40 Bacterial urine culture 3 OR MORE NRG COLONY COUNT 40,000 CFU/ML NRG FTX;REPORTABLE (GRAM POSITIVE) SUGGESTING PROBABLE NRG FREE TEXT ENTRY 2 COLLECTION CONTAMINATION WITH SK IN NRG FREE TEXT ENTRY 3 CALI. NO SUSCEPTIBILITY PERFOR MED NRG Complete blood count (CBC) with automate d white blood cell (WBC) differential - 08/12/18 16:50 Blood leukocytes automated count (number/volume) 7.3 10*3/uL 4.3-11.0 Blood erythrocytes automated count (number/volume) 4.66 10*6/uL 4.35-5.85 Venous blood hemoglobin measurement (mass/volume) 13.5 g/dL 11.5-16.0 Blood hematocrit (volume fraction) 41 % 35-52 Automated erythrocyte mean corpuscular volume 88 [ foz_us] 80-99 Automated erythrocyte mean corpuscular h emoglobin (mass per erythrocyte) 29 pg 25-34 Automated erythrocyte mean corpuscular h emoglobin concentration measurement (mass/volume) 33 g/dL 32-36 Automated erythrocyte distribution width ratio 14. 9 % 10.0- 14.5 Automated blood platelet count [...] 10*3 1.0-4.0 Blood monocytes automated count (number/volume) 0. 7 10*3 0.0-1.0 Automated eosinophil count 0.0 10*3/uL 0 .0-0.3 Automated blood basophil count (count/volume) 0.0 10*3/uL 0.0-0.1 Comprehensive metabolic panel - 08/12/18 16:53 Serum or plasma sodium measurement (moles/volume) 143 mmol/L 135-145 Serum or plasma potassium measurement (moles/volume) 4.5 mmol/L 3.6-5.0 Serum or plasma chloride measurement (moles/volume) 102 mmol/L 98-107 Carbon dioxide 26 mmol/L 21-32 Serum or plasma anion gap determination (moles/volume) 15 mmol/L 5-14 Serum or plasma urea nitrogen measurement (mass/volume ) 12 mg/dL 7-18 Serum or plasma creatinine measurement (mass/volume) 0.89 mg/dL 0.60-1.30 Serum or plasma urea nitrogen/creatinine mass ratio 13 NRG Serum or plasma creatinine measurement w ith calculation of estimated glomerular filtration rate > NRG Serum or plasma glucose measurement (mass/volume) 105 mg/dL 70-105 Serum or plasma calcium measurement (mass/volume) 10.1 mg/dL 8.5-10.1 Serum or plasma total bilirubin measurement (mass/volu me) 0.3 mg/dL 0.1-1.0 Serum or plasma alkaline phosphatase justa surement (enzymatic activity/volume) 87 U/L 40-136 Serum or plasma aspartate aminotransfera se measurement (enzymatic activity/volume) 78 U/L 5-34 Serum or plasma alanine aminotransferase measurement (enzymatic activity/volume) 85 U/L 0-55 Serum or plasma protein measurement (mass/volume) 8.4 g/dL 6.4-8.2 Serum or plasma albumin measurement (mass/volume) 4.8 g/dL 3.2-4.5 Serum or plasma amylase measurement (enz ymatic activity/volume) - 08/12/18 16:53 Serum or plasma amylase measurement (enzymatic activit y/volume) 25 U/L 25-125 Lipase - 08/12/18 16:53 Lipase 34 U/L 8-78 Complete urinalysis with reflex to cultu re - 08/12/18 18:06 Urine color determination YELLOW NRG Urine clarity determination SLIGHTLY CLOUDY NRG Urine pH measurement by test strip 6.5 5-9 Specific gravity of urine by test strip 1.015 1.016-1.022 Urine protein assay by test strip, semi-quantitative 2+ NEGATIVE Urine glucose detection by automated test strip NE GATIVE NEGATIVE Erythrocytes detection in urine sediment by light micr oscopy NEGATIVE NEGATIVE Urine ketones detection by automated test strip 4+ NEGATIVE Urine nitrite detection by test strip NEGATIVE NEGATIVE Urine total bilirubin detection by test strip 1+ NEGATIVE Urine urobilinogen measurement by automated test strip (mass/volume) 1 mg/dL NORMAL Urine leukocyte esterase detection by dipstick 1+ NEGATIVE Automated urine sediment erythrocyte cou nt by microscopy (number/high power field) NONE NRG Automated urine sediment leukocyte count by microscopy (number/high power field) NONE NRG Bacteria detection in urine sediment by light microsco py TRACE NRG Squamous epithelial cells detection in u rine sediment by light microscopy 10-25 NRG Crystals detection in urine sediment by light microsco py NONE NRG Casts detection in urine sediment by light microscopy NONE NRG Mucus detection in urine sediment by light microscopy SMALL NRG Complete urinalysis with reflex to culture NO NRG Influenza virus A and B antigen detectio n - 09/05/18 04:55 FLU RESULT NEGATIVE FOR INFLUENZA A AND B ANTIGENS BY IA NRG Complete blood count (CBC) with automate d white blood cell (WBC) differential - 09/09/18 13:45 Blood leukocytes automated count (number/volume) 10.9 10*3/uL 4.3-11.0 Blood erythrocytes automated count (number/volume) 5.62 10*6/uL 4.35-5.85 Venous blood hemoglobin measurement (mass/volume) 16.1 g/dL 11.5-16.0 Blood hematocrit (volume fraction) 48 % 35-52 Automated erythrocyte mean corpuscular volume 85 [ foz_us] 80-99 Automated erythrocyte mean corpuscular h emoglobin (mass per erythrocyte) 29 pg 25-34 Automated erythrocyte mean corpuscular h emoglobin concentration measurement (mass/volume) 34 g/dL 32-36 Automated erythrocyte distribution width ratio 14. 4 % 10.0- 14.5 Automated blood platelet count [...] 10*3 1.0-4.0 Blood monocytes automated count (number/volume) 1. 1 10*3 0.0-1.0 Automated eosinophil count 0.0 10*3/uL 0 .0-0.3 Automated blood basophil count (count/volume) 0.0 10*3/uL 0.0-0.1 Comprehensive metabolic panel - 09/09/18 13:45 Serum or plasma sodium measurement (moles/volume) 137 mmol/L 135-145 Serum or plasma potassium measurement (moles/volume) 3.1 mmol/L 3.6-5.0 Serum or plasma chloride measurement (moles/volume) 87 mmol/L 98-107 Carbon dioxide 31 mmol/L 21-32 Serum or plasma anion gap determination (moles/volume) 19 mmol/L 5-14 Serum or plasma urea nitrogen measurement (mass/volume ) 23 mg/dL 7-18 Serum or plasma creatinine measurement (mass/volume) 1.22 mg/dL 0.60-1.30 Serum or plasma urea nitrogen/creatinine mass ratio 19 NRG Serum or plasma creatinine measurement w ith calculation of estimated glomerular filtration rate 49 NRG Serum or plasma glucose measurement (mass/volume) 140 mg/dL 70-105 Serum or plasma calcium measurement (mass/volume) 11.3 mg/dL 8.5-10.1 Serum or plasma total bilirubin measurement (mass/volu me) 0.9 mg/dL 0.1-1.0 Serum or plasma alkaline phosphatase justa surement (enzymatic activity/volume) 126 U/L 40-136 Serum or plasma aspartate aminotransfera se measurement (enzymatic activity/volume) 55 U/L 5-34 Serum or plasma alanine aminotransferase measurement (enzymatic activity/volume) 124 U/L 0-55 Serum or plasma protein measurement (mass/volume) 9.5 g/dL 6.4-8.2 Serum or plasma albumin measurement (mass/volume) 5.5 g/dL 3.2-4.5 Serum or plasma amylase measurement (enz ymatic activity/volume) - 09/09/18 13:45 Serum or plasma amylase measurement (enzymatic activit y/volume) 49 U/L 25-125 Lipase - 09/09/18 13:45 Lipase 75 U/L 8-78 Complete urinalysis with reflex to cultu re - 09/09/18 15:50 Urine color determination YELLOW NRG Urine clarity determination SLIGHTLY CLOUDY NRG Urine pH measurement by test strip 6 5-9 Specific gravity of urine by test strip 1.020 1.016-1.022 Urine protein assay by test strip, semi-quantitative 3+ NEGATIVE Urine glucose detection by automated test strip NE GATIVE NEGATIVE Erythrocytes detection in urine sediment by light micr oscopy NEGATIVE NEGATIVE Urine ketones detection by automated test strip 4+ NEGATIVE Urine nitrite detection by test strip NEGATIVE NEGATIVE Urine total bilirubin detection by test strip 1+ NEGATIVE Urine urobilinogen measurement by automated test strip (mass/volume) 1 mg/dL NORMAL Urine leukocyte esterase detection by dipstick 1+ NEGATIVE Automated urine sediment erythrocyte cou nt by microscopy (number/high power field) NONE NRG Automated urine sediment leukocyte count by microscopy (number/high power field) [HPF] NRG Bacteria detection in urine sediment by light microsco py MODERATE NRG Squamous epithelial cells detection in u rine sediment by light microscopy 10-25 NRG Crystals detection in urine sediment by light microsco py NONE NRG Casts detection in urine sediment by light microscopy NONE NRG Mucus detection in urine sediment by light microscopy LARGE NRG Complete urinalysis with reflex to culture YES NRG Bacterial urine culture - 09/09/18 15:50 Bacterial urine culture SEE REPORT NRG COLONY COUNT . NRG Complete blood count (CBC) with automate d white blood cell (WBC) differential - 10/01/18 03:35 Blood leukocytes automated count (number/volume) 8.0 10*3/uL 4.3-11.0 Blood erythrocytes automated count (number/volume) 5.08 10*6/uL 4.35-5.85 Venous blood hemoglobin measurement (mass/volume) 14.3 g/dL 11.5-16.0 Blood hematocrit (volume fraction) 44 % 35-52 Automated erythrocyte mean corpuscular volume 87 [ foz_us] 80-99 Automated erythrocyte mean corpuscular h emoglobin (mass per erythrocyte) 28 pg 25-34 Automated erythrocyte mean corpuscular h emoglobin concentration measurement (mass/volume) 32 g/dL 32-36 Automated erythrocyte distribution width ratio 15. 1 % 10.0- 14.5 Automated blood platelet count [...] 10*3 1.0-4.0 Blood monocytes automated count (number/volume) 0. 6 10*3 0.0-1.0 Automated eosinophil count 0.0 10*3/uL 0 .0-0.3 Automated blood basophil count (count/volume) 0.0 10*3/uL 0.0-0.1 Comprehensive metabolic panel - 10/01/18 03:35 Serum or plasma sodium measurement (moles/volume) 143 mmol/L 135-145 Serum or plasma potassium measurement (moles/volume) 3.6 mmol/L 3.6-5.0 Serum or plasma chloride measurement (moles/volume) 103 mmol/L 98-107 Carbon dioxide 21 mmol/L 21-32 Serum or plasma anion gap determination (moles/volume) 19 mmol/L 5-14 Serum or plasma urea nitrogen measurement (mass/volume ) 11 mg/dL 7-18 Serum or plasma creatinine measurement (mass/volume) 1.12 mg/dL 0.60-1.30 Serum or plasma urea nitrogen/creatinine mass ratio 10 NRG Serum or plasma creatinine measurement w ith calculation of estimated glomerular filtration rate 54 NRG Serum or plasma glucose measurement (mass/volume) 144 mg/dL 70-105 Serum or plasma calcium measurement (mass/volume) 10.9 mg/dL 8.5-10.1 Serum or plasma total bilirubin measurement (mass/volu me) 0.4 mg/dL 0.1-1.0 Serum or plasma alkaline phosphatase justa surement (enzymatic activity/volume) 106 U/L 40-136 Serum or plasma aspartate aminotransfera se measurement (enzymatic activity/volume) 30 U/L 5-34 Serum or plasma alanine aminotransferase measurement (enzymatic activity/volume) 40 U/L 0-55 Serum or plasma protein measurement (mass/volume) 8.6 g/dL 6.4-8.2 Serum or plasma albumin measurement (mass/volume) 5.0 g/dL 3.2-4.5 Magnesium - 10/01/18 03:35 Magnesium 2.1 mg/dL 1.8-2.4 Lipase - 10/01/18 03:35 Lipase 47 U/L 8-78 Serum or plasma ethanol measurement (mas s/volume) - 10/01/18 03:35 Serum or plasma ethanol measurement (mass/volume) < mg/dL <10 Complete urinalysis with reflex to cultu re - 10/01/18 05:05 Urine color determination YELLOW NRG Urine clarity determination CLEAR NR G Urine pH measurement by test strip 5 5-9 Specific gravity of urine by test strip 1.025 1.016-1.022 Urine protein assay by test strip, semi-quantitative 2+ NEGATIVE Urine glucose detection by automated test strip NE GATIVE NEGATIVE Erythrocytes detection in urine sediment by light micr oscopy NEGATIVE NEGATIVE Urine ketones detection by automated test strip 3+ NEGATIVE Urine nitrite detection by test strip NEGATIVE NEGATIVE Urine total bilirubin detection by test strip NEGA TIVE NEGATIVE Urine urobilinogen measurement by automated test strip (mass/volume) NORMAL NORMAL Urine leukocyte esterase detection by dipstick NEG ATIVE NEGATIVE Automated urine sediment erythrocyte cou nt by microscopy (number/high power field) NONE NRG Automated urine sediment leukocyte count by microscopy (number/high power field) [HPF] NRG Bacteria detection in urine sediment by light microsco py FEW NRG Squamous epithelial cells detection in u rine sediment by light microscopy 10-25 NRG Crystals detection in urine sediment by light microsco py PRESENT NRG Casts detection in urine sediment by light microscopy NONE NRG Mucus detection in urine sediment by light microscopy MODERATE NRG Complete urinalysis with reflex to culture NO NRG Amorphous sediment detection in urine sediment by ligh t microscopy LARGE TETE URATES NRG Urine drug screening test - 10/01/18 05: 05 Urine phencyclidine detection by screening method NEGATIVE NEGATIVE Urine benzodiazepines detection by screening method NEGATIVE NEGATIVE Urine cocaine detection NEGATIVE NEGATI VE Urine amphetamines detection by screening method N EGATIVE NEGATIVE Urine methamphetamine detection by screening method NEGATIVE NEGATIVE Urine cannabinoids detection by screening method P OSITIVE NEGATIVE Urine opiates detection by screening method NEGATI VE NEGATIVE Urine barbiturates detection NEGATIVE N EGATIVE Screening urine tricyclic antidepressants detection NEGATIVE NEGATIVE Urine methadone detection by screening method NEGA TIVE NEGATIVE Urine oxycodone detection NEGATIVE NEGA TIVE Urine propoxyphene detection NEGATIVE N EGATIVE Complete blood count (CBC) with automate d white blood cell (WBC) differential - 11/18/18 20:33 Blood leukocytes automated count (number/volume) 10.9 10*3/uL 4.3-11.0 Blood erythrocytes automated count (number/volume) 4.67 10*6/uL 4.35-5.85 Venous blood hemoglobin measurement (mass/volume) 13.1 g/dL 11.5-16.0 Blood hematocrit (volume fraction) 40 % 35-52 Automated erythrocyte mean corpuscular volume 87 [ foz_us] 80-99 Automated erythrocyte mean corpuscular h emoglobin (mass per erythrocyte) 28 pg 25-34 Automated erythrocyte mean corpuscular h emoglobin concentration measurement (mass/volume) 32 g/dL 32-36 Automated erythrocyte distribution width ratio 14. 9 % 10.0- 14.5 Automated blood platelet count (count/volume) 378 10*3/uL 130-400 Automated blood platelet mean volume measurement 9.2 [foz_us] 7.4-10.4 Automated blood neutrophils/100 leukocytes 81 % 42-75 Automated blood lymphocytes/100 leukocytes 12 % 12-44 Blood monocytes/100 leukocytes 7 % 0-12 Automated blood eosinophils/100 leukocytes 0 % 0-10 Automated blood basophils/100 leukocytes 0 % 0-10 Blood neutrophils automated count (number/volume) 8.9 10*3 1.8-7.8 Blood lymphocytes automated count (number/volume) 1.3 10*3 1.0-4.0 Blood monocytes automated count (number/volume) 0. 7 10*3 0.0-1.0 Automated eosinophil count 0.0 10*3/uL 0 .0-0.3 Automated blood basophil count (count/volume) 0.0 10*3/uL 0.0-0.1 Serum or plasma choriogonadotropin (preg yevgeniy test) detection - 11/18/18 20:33 Serum or plasma choriogonadotropin ( test) de tection NEGATIVE NEGATIVE Comprehensive metabolic panel - 11/18/18 20:33 Serum or plasma sodium measurement (moles/volume) 148 mmol/L 135-145 Serum or plasma potassium measurement (moles/volume) 3.3 mmol/L 3.6-5.0 Serum or plasma chloride measurement (moles/volume) 105 mmol/L 98-107 Carbon dioxide 26 mmol/L 21-32 Serum or plasma anion gap determination (moles/volume) 17 mmol/L 5-14 Serum or plasma urea nitrogen measurement (mass/volume ) 5 mg/dL 7-18 Serum or plasma creatinine measurement (mass/volume) 0.99 mg/dL 0.60-1.30 Serum or plasma urea nitrogen/creatinine mass ratio 5 NRG Serum or plasma creatinine measurement w ith calculation of estimated glomerular filtration rate > NRG Serum or plasma glucose measurement (mass/volume) 137 mg/dL 70-105 Serum or plasma calcium measurement (mass/volume) 10.3 mg/dL 8.5-10.1 Serum or plasma total bilirubin measurement (mass/volu me) 0.3 mg/dL 0.1-1.0 Serum or plasma alkaline phosphatase justa surement (enzymatic activity/volume) 102 U/L 40-136 Serum or plasma aspartate aminotransfera se measurement (enzymatic activity/volume) 22 U/L 5-34 Serum or plasma alanine aminotransferase measurement (enzymatic activity/volume) 27 U/L 0-55 Serum or plasma protein measurement (mass/volume) 7.7 g/dL 6.4-8.2 Serum or plasma albumin measurement (mass/volume) 4.4 g/dL 3.2-4.5 CALCIUM CORRECTED 10.0 mg/dL 8.5-10.1 Magnesium - 11/18/18 20:33 Magnesium 2.1 mg/dL 1.8-2.4 Serum or plasma amylase measurement (enz ymatic activity/volume) - 11/18/18 20:33 Serum or plasma amylase measurement (enzymatic activit y/volume) 24 U/L 25-125 Lipase - 11/18/18 20:33 Lipase 49 U/L 8-78 Serum or plasma ethanol measurement (mas s/volume) - 11/18/18 20:33 Serum or plasma ethanol measurement (mass/volume) < mg/dL <10 Complete urinalysis with reflex to cultu re - 11/18/18 22:29 Urine color determination YELLOW NRG Urine clarity determination CLEAR NR G Urine pH measurement by test strip 7 5-9 Specific gravity of urine by test strip 1.005 1.016-1.022 Urine protein assay by test strip, semi-quantitative 1+ NEGATIVE Urine glucose detection by automated test strip NE GATIVE NEGATIVE Erythrocytes detection in urine sediment by light micr oscopy NEGATIVE NEGATIVE Urine ketones detection by automated test strip NE GATIVE NEGATIVE Urine nitrite detection by test strip NEGATIVE NEGATIVE Urine total bilirubin detection by test strip NEGA TIVE NEGATIVE Urine urobilinogen measurement by automated test strip (mass/volume) NORMAL NORMAL Urine leukocyte esterase detection by dipstick 1+ NEGATIVE Automated urine sediment erythrocyte cou nt by microscopy (number/high power field) NONE NRG Automated urine sediment leukocyte count by microscopy (number/high power field) [HPF] NRG Bacteria detection in urine sediment by light microsco py FEW NRG Squamous epithelial cells detection in u rine sediment by light microscopy 10-25 NRG Crystals detection in urine sediment by light microsco py NONE NRG Casts detection in urine sediment by light microscopy NONE NRG Mucus detection in urine sediment by light microscopy SMALL NRG Complete urinalysis with reflex to culture YES NRG Urine drug screening test - 11/18/18 22: 29 Urine phencyclidine detection by screening method NEGATIVE NEGATIVE Urine benzodiazepines detection by screening method NEGATIVE NEGATIVE Urine cocaine detection NEGATIVE NEGATI VE Urine amphetamines detection by screening method N EGATIVE NEGATIVE Urine methamphetamine detection by screening method NEGATIVE NEGATIVE Urine cannabinoids detection by screening method P OSITIVE NEGATIVE Urine opiates detection by screening method NEGATI VE NEGATIVE Urine barbiturates detection NEGATIVE N EGATIVE Screening urine tricyclic antidepressants detection NEGATIVE NEGATIVE Urine methadone detection by screening method NEGA TIVE NEGATIVE Urine oxycodone detection NEGATIVE NEGA TIVE Urine propoxyphene detection NEGATIVE N EGATIVE Bacterial urine culture - 11/18/18 22:29 Bacterial urine culture 3 OR MORE NRG COLONY COUNT 70,000 cfu/ml NRG FTX;REPORTABLE GRAM POSITIVE ISOLATES SUGGESTING NRG FREE TEXT ENTRY 2 PROBABLE COLLECTION CONTAMINATIO N WITH NRG FREE TEXT ENTRY 3 SKIN CALI. NO SUSCEPTIBILITY PE RFORMED NRG Comprehensive Metabolic Panel - 11/22/18 16:20 Albumin 4.4 g/dL 3.6-5.1 ALP 92 U/L 35-130 ALT 57 U/L 6-45 Anion Gap 20 6-14 AST 35 U/L 2-40 BUN 5 mg/dL 5-25 Calcium 10.0 mg/dL 8.3-10.4 Chloride 98 mmol/L 95-114 CO2 29 mEq/L 22-33 Creat 0.91 mg/dL 0.50-1.50 eGFR 68 mL/min/1.73m2 >59 Globulin 3.3 g/dL 2.3-3.5 Glucose 106 mg/dL 70-110 Osmo 295 280-295 Potassium 2.9 Result Verified by Repeat Analysis m mol/L 3.5- 5.3 Sodium 144 mmol/L 134-148 TBil 0.4 mg/dL 0.2-1.2 TP 7.7 g/dL 6.0-8.3 Rapid Drug Screen + ETOH,Medical - 11/22 17:06 Amphetamine NEGATIVE NEGATIVE Barbiturates NEGATIVE NEGATIVE Benzodiazepines NEGATIVE NEGATIVE Cocaine NEGATIVE NEGATIVE Ethanol, Urine <10.00 mg/dL 20.00-80.00 Marijuana NEGATIVE NEGATIVE Methylenedioxymethamphetamine NEGATIVE NEGATIVE Opiates NEGATIVE NEGATIVE Oxycodone NEGATIVE NEGATIVE Phencyclidine NEGATIVE NEGATIVE Propoxyphene NEGATIVE NEGATIVE Tricyclic Antidepressant POSITIVE NEGAT ELIS Urine Culture - 11/22/18 17:06 PRELIM CULTURE RESULTS 10,000-20,000 Gram Po sitive Mixed Cali [id number] Skin Contaminant FINAL CULTURE RESULTS 10,000-20,000 Gram Pos itive Mixed Cali [id number] Skin Contaminant [id number] Further Workup done MEDIA PLATED Setup at 17:32 on 11/22/2018 CULTURE SOURCE void Urinalysis - 11/22/18 17:06 Icotest N/A Negative Urine Volume Urine Volume Sufficient (10mL) Urine Yeast No Yeast present Urine-Appearance Slightly Cloudy Clear Urine-Bacteria 4+ Urine-Bilirubin Negative Negative Urine-Blood Negative Negative Urine-Color Yellow Colorless-Lt. [place] ow Urine-Epithelial Cells TNTC Urine-Glucose Negative Negative Urine-Ketones Trace Negative Urine-Leukocytes Trace Negative Urine-Nitrite Negative Negative Urine-Other Culture to follow Urine-pH 7.0 5-8.5 Urine-Protein Negative Negative Urine-RBC Negative Urine-Specific [place] 1.015 1.000-1 .030 Urine-WBC 20-40/HPF Urobilinogen 0.2 E.U./dL 0.2-1.0 Urine Culture - 11/22/18 17:06 PRELIM CULTURE RESULTS 10,000-20,000 Gram Po sitive Mixed Cali [id number] Skin Contaminant MEDIA PLATED Setup at 17:32 on 11/22/2018 CULTURE SOURCE void EKG - 11/22/18 17:07 EKG Complete CULTURE, URINE - 12/09/18 16:57 CULTURE, URINE, ROUTINE SEE NOTE NRG Complete blood count (CBC) with automate d white blood cell (WBC) differential - 12/16/18 17:00 Blood leukocytes automated count (number/volume) 7.7 10*3/uL 4.3-11.0 Blood erythrocytes automated count (number/volume) 4.92 10*6/uL 4.35-5.85 Venous blood hemoglobin measurement (mass/volume) 14.0 g/dL 11.5-16.0 Blood hematocrit (volume fraction) 43 % 35-52 Automated erythrocyte mean corpuscular volume 86 [ foz_us] 80-99 Automated erythrocyte mean corpuscular h emoglobin (mass per erythrocyte) 29 pg 25-34 Automated erythrocyte mean corpuscular h emoglobin concentration measurement (mass/volume) 33 g/dL 32-36 Automated erythrocyte distribution width ratio 15. 5 % 10.0- 14.5 Automated blood platelet count (count/volume) 382 10*3/uL 130-400 Automated blood platelet mean volume measurement 8.9 [foz_us] 7.4-10.4 Automated blood neutrophils/100 leukocytes 53 % 42-75 Automated blood lymphocytes/100 leukocytes 38 % 12-44 Blood monocytes/100 leukocytes 8 % 0-12 Automated blood eosinophils/100 leukocytes 0 % 0-10 Automated blood basophils/100 leukocytes 0 % 0-10 Blood neutrophils automated count (number/volume) 4.1 10*3 1.8-7.8 Blood lymphocytes automated count (number/volume) 2.9 10*3 1.0-4.0 Blood monocytes automated count (number/volume) 0. 7 10*3 0.0-1.0 Automated eosinophil count 0.0 10*3/uL 0 .0-0.3 Automated blood basophil count (count/volume) 0.0 10*3/uL 0.0-0.1 PT panel in platelet poor plasma by coag ulation assay - 12/16/18 17:00 Prothrombin time (PT) in platelet poor plasma by coagu lation assay 12.6 s 12.2-14.7 INR in platelet poor plasma or blood by coagulation as say 0.9 0.8-1.4 Activated partial thromboplastin time (a PTT) in platelet poor plasma bycoagulation assay - 12/16/18 17:00 Activated partial thromboplastin time (a PTT) in platelet poor plasma bycoagulation assay 28 s 24-35 Fibrin D-dimer FEU measurement in platel et poor plasma (mass/volume) - 12/16/18 17:00 Fibrin D-dimer FEU measurement in platelet poor plasma (mass/volume) 0.40 ug/mL 0.00-0.49 Comprehensive metabolic panel - 12/16/18 17:00 Serum or plasma sodium measurement (moles/volume) 139 mmol/L 135-145 Serum or plasma potassium measurement (moles/volume) 3.4 mmol/L 3.6-5.0 Serum or plasma chloride measurement (moles/volume) 99 mmol/L 98-107 Carbon dioxide 27 mmol/L 21-32 Serum or plasma anion gap determination (moles/volume) 13 mmol/L 5-14 Serum or plasma urea nitrogen measurement (mass/volume ) 10 mg/dL 7-18 Serum or plasma creatinine measurement (mass/volume) 0.90 mg/dL 0.60-1.30 Serum or plasma urea nitrogen/creatinine mass ratio 11 NRG Serum or plasma creatinine measurement w ith calculation of estimated glomerular filtration rate > NRG Serum or plasma glucose measurement (mass/volume) 108 mg/dL 70-105 Serum or plasma calcium measurement (mass/volume) 10.7 mg/dL 8.5-10.1 Serum or plasma total bilirubin measurement (mass/volu me) 0.4 mg/dL 0.1-1.0 Serum or plasma alkaline phosphatase justa surement (enzymatic activity/volume) 82 U/L 40-136 Serum or plasma aspartate aminotransfera se measurement (enzymatic activity/volume) 73 U/L 5-34 Serum or plasma alanine aminotransferase measurement (enzymatic activity/volume) 85 U/L 0-55 Serum or plasma protein measurement (mass/volume) 8.1 g/dL 6.4-8.2 Serum or plasma albumin measurement (mass/volume) 4.8 g/dL 3.2-4.5 Magnesium - 12/16/18 17:00 Magnesium 1.9 mg/dL 1.8-2.4 Serum or plasma troponin i.cardiac measu rement (mass/volume) - 12/16/18 17:00 Serum or plasma troponin i.cardiac measurement (mass/v olume) < ng/mL <0.028 Myoglobin, serum - 12/16/18 17:00 Myoglobin, serum 20.2 ng/mL 10.0-92.0 Lipase - 12/16/18 17:00 Lipase 42 U/L 8-78 Serum or plasma lithium measurement (mol es/volume) - 12/16/18 17:00 BNP PT < 10.0 <100.0 Serum or plasma troponin i.cardiac measu rement (mass/volume) - 12/16/18 19:43 Serum or plasma troponin i.cardiac measurement (mass/v olume) < ng/mL <0.028 Complete urinalysis with reflex to cultu re - 12/16/18 20:15 Urine color determination YELLOW NRG Urine clarity determination SL CLOUDY N RG Urine pH measurement by test strip 6.5 5-9 Specific gravity of urine by test strip 1.020 1.016-1.022 Urine protein assay by test strip, semi-quantitative 2+ NEGATIVE Urine glucose detection by automated test strip NE GATIVE NEGATIVE Erythrocytes detection in urine sediment by light micr oscopy NEGATIVE NEGATIVE Urine ketones detection by automated test strip 3+ NEGATIVE Urine nitrite detection by test strip NEGATIVE NEGATIVE Urine total bilirubin detection by test strip NEGA TIVE NEGATIVE Urine urobilinogen measurement by automated test strip (mass/volume) 1 mg/dL NORMAL Urine leukocyte esterase detection by dipstick 2+ NEGATIVE Automated urine sediment erythrocyte cou nt by microscopy (number/high power field) NONE NRG Automated urine sediment leukocyte count by microscopy (number/high power field) [HPF] NRG Bacteria detection in urine sediment by light microsco py TRACE NRG Squamous epithelial cells detection in u rine sediment by light microscopy 10-25 NRG Crystals detection in urine sediment by light microsco py NONE NRG Casts detection in urine sediment by light microscopy NONE NRG Mucus detection in urine sediment by light microscopy SMALL NRG Complete urinalysis with reflex to culture NO NRG Urine drug screening test - 12/16/18 20: 15 Urine phencyclidine detection by screening method NEGATIVE NEGATIVE Urine benzodiazepines detection by screening method POSITIVE NEGATIVE Urine cocaine detection NEGATIVE NEGATI VE Urine amphetamines detection by screening method N EGATIVE NEGATIVE Urine methamphetamine detection by screening method NEGATIVE NEGATIVE Urine cannabinoids detection by screening method P OSITIVE NEGATIVE Urine opiates detection by screening method NEGATI VE NEGATIVE Urine barbiturates detection NEGATIVE N EGATIVE Screening urine tricyclic antidepressants detection POSITIVE NEGATIVE Urine methadone detection by screening method NEGA TIVE NEGATIVE Urine oxycodone detection NEGATIVE NEGA TIVE Urine propoxyphene detection NEGATIVE N EGATIVE Complete blood count (CBC) with automate d white blood cell (WBC) differential - 01/23/19 20:00 Blood leukocytes automated count (number/volume) 10.9 10*3/uL 4.3-11.0 Blood erythrocytes automated count (number/volume) 4.85 10*6/uL 4.35-5.85 Venous blood hemoglobin measurement (mass/volume) 14.0 g/dL 11.5-16.0 Blood hematocrit (volume fraction) 43 % 35-52 Automated erythrocyte mean corpuscular volume 88 [ foz_us] 80-99 Automated erythrocyte mean corpuscular h emoglobin (mass per erythrocyte) 29 pg 25-34 Automated erythrocyte mean corpuscular h emoglobin concentration measurement (mass/volume) 33 g/dL 32-36 Automated erythrocyte distribution width ratio 15. 6 % 10.0- 14.5 Automated blood platelet count (count/volume) 375 10*3/uL 130-400 Automated blood platelet mean volume measurement 9.6 [foz_us] 7.4-10.4 Automated blood neutrophils/100 leukocytes 69 % 42-75 Automated blood lymphocytes/100 leukocytes 22 % 12-44 Blood monocytes/100 leukocytes 9 % 0-12 Automated blood eosinophils/100 leukocytes 0 % 0-10 Automated blood basophils/100 leukocytes 0 % 0-10 Blood neutrophils automated count (number/volume) 7.5 10*3 1.8-7.8 Blood lymphocytes automated count (number/volume) 2.4 10*3 1.0-4.0 Blood monocytes automated count (number/volume) 1. 0 10*3 0.0-1.0 Automated eosinophil count 0.0 10*3/uL 0 .0-0.3 Automated blood basophil count (count/volume) 0.0 10*3/uL 0.0-0.1 Comprehensive metabolic panel - 01/23/19 20:00 Serum or plasma sodium measurement (moles/volume) 139 mmol/L 135-145 Serum or plasma potassium measurement (moles/volume) 3.1 mmol/L 3.6-5.0 Serum or plasma chloride measurement (moles/volume) 96 mmol/L 98-107 Carbon dioxide 23 mmol/L 21-32 Serum or plasma anion gap determination (moles/volume) 20 mmol/L 5-14 Serum or plasma urea nitrogen measurement (mass/volume ) 8 mg/dL 7-18 Serum or plasma creatinine measurement (mass/volume) 1.17 mg/dL 0.60-1.30 Serum or plasma urea nitrogen/creatinine mass ratio 7 NRG Serum or plasma creatinine measurement w ith calculation of estimated glomerular filtration rate 51 NRG Serum or plasma glucose measurement (mass/volume) 164 mg/dL 70-105 Serum or plasma calcium measurement (mass/volume) 10.2 mg/dL 8.5-10.1 Serum or plasma total bilirubin measurement (mass/volu me) 0.6 mg/dL 0.1-1.0 Serum or plasma alkaline phosphatase justa surement (enzymatic activity/volume) 111 U/L 40-136 Serum or plasma aspartate aminotransfera se measurement (enzymatic activity/volume) 44 U/L 5-34 Serum or plasma alanine aminotransferase measurement (enzymatic activity/volume) 77 U/L 0-55 Serum or plasma protein measurement (mass/volume) 7.7 g/dL 6.4-8.2 Serum or plasma albumin measurement (mass/volume) 4.2 g/dL 3.2-4.5 CALCIUM CORRECTED 10.0 mg/dL 8.5-10.1 Lipase - 01/23/19 20:00 Lipase 15 U/L 8-78 Serum or plasma C reactive protein measu rement (mass/volume) - 01/23/19 20:00 Serum or plasma C reactive protein measurement (mass/v olume) 13.06 mg/dL 0.00-0.50 Blood lactic acid measurement (moles/vol ume) - 01/23/19 20:15 Blood lactic acid measurement (moles/volume) 2.77 mmol/L 0.50-2.00 Bacterial blood culture - 01/23/19 20:15 Bacterial blood culture NG NRG Bacterial blood culture - 01/23/19 20:50 Bacterial blood culture NG NRG Complete urinalysis with reflex to cultu re - 01/23/19 21:46 Urine color determination YELLOW NRG Urine clarity determination SLIGHTLY CLOUDY NRG Urine pH measurement by test strip 5 5-9 Specific gravity of urine by test strip 1.015 1.016-1.022 Urine protein assay by test strip, semi-quantitative 1+ NEGATIVE Urine glucose detection by automated test strip NE GATIVE NEGATIVE Erythrocytes detection in urine sediment by light micr oscopy NEGATIVE NEGATIVE Urine ketones detection by automated test strip NE GATIVE NEGATIVE Urine nitrite detection by test strip NEGATIVE NEGATIVE Urine total bilirubin detection by test strip NEGA TIVE NEGATIVE Urine urobilinogen measurement by automated test strip (mass/volume) NORMAL NORMAL Urine leukocyte esterase detection by dipstick 1+ NEGATIVE Automated urine sediment erythrocyte cou nt by microscopy (number/high power field) NONE NRG Automated urine sediment leukocyte count by microscopy (number/high power field) [HPF] NRG Bacteria detection in urine sediment by light microsco py MODERATE NRG Squamous epithelial cells detection in u rine sediment by light microscopy 10-25 NRG Crystals detection in urine sediment by light microsco py NONE NRG Casts detection in urine sediment by light microscopy PRESENT NRG Mucus detection in urine sediment by light microscopy MODERATE NRG Complete urinalysis with reflex to culture YES NRG Hyaline casts detection in urine sediment by light colin roscopy 5-10 NRG Bacterial urine culture - 01/23/19 21:46 Bacterial urine culture 3 OR MORE NRG COLONY COUNT 20,000 CFU/ML NRG FTX;REPORTABLE SUGGESTING PROBABLE COLLECTION NRG FREE TEXT ENTRY 2 CONTAMINATION WITH SKIN CALI NRG FREE TEXT ENTRY 3 NO SUSCEPTIBILITY PERFORMED NRG Serum or plasma lactate measurement (mol es/volume) - 01/23/19 22:29 Serum or plasma lactate measurement (moles/volume) 1.81 mmol/L 0.50-2.00 Complete blood count (CBC) with automate d white blood cell (WBC) differential - 01/24/19 05:38 Blood leukocytes automated count (number/volume) 6.9 10*3/uL 4.3-11.0 Blood erythrocytes automated count (number/volume) 3.69 10*6/uL 4.35-5.85 Venous blood hemoglobin measurement (mass/volume) 10.6 g/dL 11.5-16.0 Blood hematocrit (volume fraction) 33 % 35-52 Automated erythrocyte mean corpuscular volume 90 [ foz_us] 80-99 Automated erythrocyte mean corpuscular h emoglobin (mass per erythrocyte) 29 pg 25-34 Automated erythrocyte mean corpuscular h emoglobin concentration measurement (mass/volume) 32 g/dL 32-36 Automated erythrocyte distribution width ratio 15. 6 % 10.0- 14.5 Automated blood platelet count (count/volume) 241 10*3/uL 130-400 Automated blood platelet mean volume measurement 9.5 [foz_us] 7.4-10.4 Automated blood neutrophils/100 leukocytes 61 % 42-75 Automated blood lymphocytes/100 leukocytes 27 % 12-44 Blood monocytes/100 leukocytes 11 % 0-12 Automated blood eosinophils/100 leukocytes 1 % 0-10 Automated blood basophils/100 leukocytes 0 % 0-10 Blood neutrophils automated count (number/volume) 4.2 10*3 1.8-7.8 Blood lymphocytes automated count (number/volume) 1.9 10*3 1.0-4.0 Blood monocytes automated count (number/volume) 0. 7 10*3 0.0-1.0 Automated eosinophil count 0.1 10*3/uL 0 .0-0.3 Automated blood basophil count (count/volume) 0.0 10*3/uL 0.0-0.1 Blood lactic acid measurement (moles/vol ume) - 01/24/19 05:38 Blood lactic acid measurement (moles/volume) 1.20 mmol/L 0.50-2.00 Comprehensive metabolic panel - 01/24/19 05:38 Serum or plasma sodium measurement (moles/volume) 142 mmol/L 135-145 Serum or plasma potassium measurement (moles/volume) 3.4 mmol/L 3.6-5.0 Serum or plasma chloride measurement (moles/volume) 107 mmol/L 98-107 Carbon dioxide 20 mmol/L 21-32 Serum or plasma anion gap determination (moles/volume) 15 mmol/L 5-14 Serum or plasma urea nitrogen measurement (mass/volume ) 7 mg/dL 7-18 Serum or plasma creatinine measurement (mass/volume) 0.74 mg/dL 0.60-1.30 Serum or plasma urea nitrogen/creatinine mass ratio 9 NRG Serum or plasma creatinine measurement w ith calculation of estimated glomerular filtration rate > NRG Serum or plasma glucose measurement (mass/volume) 111 mg/dL 70-105 Serum or plasma calcium measurement (mass/volume) 7.6 mg/dL 8.5-10.1 Serum or plasma total bilirubin measurement (mass/volu me) 0.5 mg/dL 0.1-1.0 Serum or plasma alkaline phosphatase justa surement (enzymatic activity/volume) 73 U/L 40-136 Serum or plasma aspartate aminotransfera se measurement (enzymatic activity/volume) 21 U/L 5-34 Serum or plasma alanine aminotransferase measurement (enzymatic activity/volume) 45 U/L 0-55 Serum or plasma protein measurement (mass/volume) 5.0 g/dL 6.4-8.2 Serum or plasma albumin measurement (mass/volume) 2.9 g/dL 3.2-4.5 CALCIUM CORRECTED 8.5 mg/dL 8.5-10.1 Serum or plasma C reactive protein measu rement (mass/volume) - 01/24/19 05:38 Serum or plasma C reactive protein measurement (mass/v olume) 9.51 mg/dL 0.00-0.50 Automated blood complete blood count (he mogram) panel - 01/26/19 08:09 Blood leukocytes automated count (number/volume) 4.2 10*3/uL 4.3-11.0 Blood erythrocytes automated count (number/volume) 3.56 10*6/uL 4.35-5.85 Venous blood hemoglobin measurement (mass/volume) 10.3 g/dL 11.5-16.0 Blood hematocrit (volume fraction) 33 % 35-52 Automated erythrocyte mean corpuscular volume 92 [ foz_us] 80-99 Automated erythrocyte mean corpuscular h emoglobin (mass per erythrocyte) 29 pg 25-34 Automated erythrocyte mean corpuscular h emoglobin concentration measurement (mass/volume) 31 g/dL 32-36 Automated erythrocyte distribution width ratio 16. 4 % 10.0- 14.5 Automated blood platelet count (count/volume) 271 10*3/uL 130-400 Automated blood platelet mean volume measurement 8.8 [foz_us] 7.4-10.4 Whole blood basic metabolic panel - 01/02 11/19 08:09 Serum or plasma sodium measurement (moles/volume) 142 mmol/L 135-145 Serum or plasma potassium measurement (moles/volume) 3.9 mmol/L 3.6-5.0 Serum or plasma chloride measurement (moles/volume) 112 mmol/L 98-107 Carbon dioxide 21 mmol/L 21-32 Serum or plasma anion gap determination (moles/volume) 9 mmol/L 5-14 Serum or plasma urea nitrogen measurement (mass/volume ) 3 mg/dL 7-18 Serum or plasma creatinine measurement (mass/volume) 0.60 mg/dL 0.60-1.30 Serum or plasma urea nitrogen/creatinine mass ratio 5 NRG Serum or plasma creatinine measurement w ith calculation of estimated glomerular filtration rate > NRG Serum or plasma glucose measurement (mass/volume) 86 mg/dL 70-105 Serum or plasma calcium measurement (mass/volume) 8.2 mg/dL 8.5-10.1 Complete blood count (CBC) with automate d white blood cell (WBC) differential - 01/27/19 06:02 Blood leukocytes automated count (number/volume) 5.3 10*3/uL 4.3-11.0 Blood erythrocytes automated count (number/volume) 3.67 10*6/uL 4.35-5.85 Venous blood hemoglobin measurement (mass/volume) 10.6 g/dL 11.5-16.0 Blood hematocrit (volume fraction) 33 % 35-52 Automated erythrocyte mean corpuscular volume 91 [ foz_us] 80-99 Automated erythrocyte mean corpuscular h emoglobin (mass per erythrocyte) 29 pg 25-34 Automated erythrocyte mean corpuscular h emoglobin concentration measurement (mass/volume) 32 g/dL 32-36 Automated erythrocyte distribution width ratio 16. 5 % 10.0- 14.5 Automated blood platelet count (count/volume) 310 10*3/uL 130-400 Automated blood platelet mean volume measurement 9.0 [foz_us] 7.4-10.4 Automated blood neutrophils/100 leukocytes 70 % 42-75 Automated blood lymphocytes/100 leukocytes 21 % 12-44 Blood monocytes/100 leukocytes 8 % 0-12 Automated blood eosinophils/100 leukocytes 0 % 0-10 Automated blood basophils/100 leukocytes 0 % 0-10 Blood neutrophils automated count (number/volume) 3.7 10*3 1.8-7.8 Blood lymphocytes automated count (number/volume) 1.1 10*3 1.0-4.0 Blood monocytes automated count (number/volume) 0. 4 10*3 0.0-1.0 Automated eosinophil count 0.0 10*3/uL 0 .0-0.3 Automated blood basophil count (count/volume) 0.0 10*3/uL 0.0-0.1 Comprehensive metabolic panel - 01/27/19 06:02 Serum or plasma sodium measurement (moles/volume) 139 mmol/L 135-145 Serum or plasma potassium measurement (moles/volume) 4.0 mmol/L 3.6-5.0 Serum or plasma chloride measurement (moles/volume) 108 mmol/L 98-107 Carbon dioxide 17 mmol/L 21-32 Serum or plasma anion gap determination (moles/volume) 14 mmol/L 5-14 Serum or plasma urea nitrogen measurement (mass/volume ) < mg/dL 7-18 Serum or plasma creatinine measurement (mass/volume) 0.62 mg/dL 0.60-1.30 Serum or plasma urea nitrogen/creatinine mass ratio 3 NRG Serum or plasma creatinine measurement w ith calculation of estimated glomerular filtration rate > NRG Serum or plasma glucose measurement (mass/volume) 85 mg/dL 70-105 Serum or plasma calcium measurement (mass/volume) 8.4 mg/dL 8.5-10.1 Serum or plasma total bilirubin measurement (mass/volu me) 0.3 mg/dL 0.1-1.0 Serum or plasma alkaline phosphatase justa surement (enzymatic activity/volume) 84 U/L 40-136 Serum or plasma aspartate aminotransfera se measurement (enzymatic activity/volume) 39 U/L 5-34 Serum or plasma alanine aminotransferase measurement (enzymatic activity/volume) 47 U/L 0-55 Serum or plasma protein measurement (mass/volume) 5.8 g/dL 6.4-8.2 Serum or plasma albumin measurement (mass/volume) 3.2 g/dL 3.2-4.5 CALCIUM CORRECTED 9.0 mg/dL 8.5-10.1 Complete blood count (CBC) with automate d white blood cell (WBC) differential - 01/28/19 05:25 Blood leukocytes automated count (number/volume) 5.5 10*3/uL 4.3-11.0 Blood erythrocytes automated count (number/volume) 3.72 10*6/uL 4.35-5.85 Venous blood hemoglobin measurement (mass/volume) 10.7 g/dL 11.5-16.0 Blood hematocrit (volume fraction) 34 % 35-52 Automated erythrocyte mean corpuscular volume 91 [ foz_us] 80-99 Automated erythrocyte mean corpuscular h emoglobin (mass per erythrocyte) 29 pg 25-34 Automated erythrocyte mean corpuscular h emoglobin concentration measurement (mass/volume) 32 g/dL 32-36 Automated erythrocyte distribution width ratio 16. 7 % 10.0- 14.5 Automated blood platelet count (count/volume) 324 10*3/uL 130-400 Automated blood platelet mean volume measurement 9.0 [foz_us] 7.4-10.4 Automated blood neutrophils/100 leukocytes 64 % 42-75 Automated blood lymphocytes/100 leukocytes 26 % 12-44 Blood monocytes/100 leukocytes 10 % 0-12 Automated blood eosinophils/100 leukocytes 1 % 0-10 Automated blood basophils/100 leukocytes 0 % 0-10 Blood neutrophils automated count (number/volume) 3.5 10*3 1.8-7.8 Blood lymphocytes automated count (number/volume) 1.4 10*3 1.0-4.0 Blood monocytes automated count (number/volume) 0. 5 10*3 0.0-1.0 Automated eosinophil count 0.0 10*3/uL 0 .0-0.3 Automated blood basophil count (count/volume) 0.0 10*3/uL 0.0-0.1 Comprehensive metabolic panel - 01/28/19 05:25 Serum or plasma sodium measurement (moles/volume) 140 mmol/L 135-145 Serum or plasma potassium measurement (moles/volume) 3.6 mmol/L 3.6-5.0 Serum or plasma chloride measurement (moles/volume) 106 mmol/L 98-107 Carbon dioxide 22 mmol/L 21-32 Serum or plasma anion gap determination (moles/volume) 12 mmol/L 5-14 Serum or plasma urea nitrogen measurement (mass/volume ) < mg/dL 7-18 Serum or plasma creatinine measurement (mass/volume) 0.66 mg/dL 0.60-1.30 Serum or plasma urea nitrogen/creatinine mass ratio 3 NRG Serum or plasma creatinine measurement w ith calculation of estimated glomerular filtration rate > NRG Serum or plasma glucose measurement (mass/volume) 87 mg/dL 70-105 Serum or plasma calcium measurement (mass/volume) 8.6 mg/dL 8.5-10.1 Serum or plasma total bilirubin measurement (mass/volu me) 0.3 mg/dL 0.1-1.0 Serum or plasma alkaline phosphatase justa surement (enzymatic activity/volume) 68 U/L 40-136 Serum or plasma aspartate aminotransfera se measurement (enzymatic activity/volume) 21 U/L 5-34 Serum or plasma alanine aminotransferase measurement (enzymatic activity/volume) 42 U/L 0-55 Serum or plasma protein measurement (mass/volume) 5.9 g/dL 6.4-8.2 Serum or plasma albumin measurement (mass/volume) 3.4 g/dL 3.2-4.5 CALCIUM CORRECTED 9.1 mg/dL 8.5-10.1 Clostridium difficile DNA detection by p robe and target amplification method - 01/28/19 19:53 Clostridium difficile DNA detection by p robe and target amplification method Negative [facility] C DIFFICILE AG + TOXIN A/B. - 01/28/19 1 9:53 FREE TEXT ENTRY 2 POSITIVE FOR GDH ANTIGEN NRG FREE TEXT ENTRY 3 NEGATIVE FOR TOXINS A AND B NR CALL POSITIVES (F1 HELP) CALLED TO LINDSEY NUNEZ 01/29 9:30 BY Shiva ANDREW [facility] RESULTS INDETERMINANT; MOLECULAR TEST TO FOLLOW [facility] Stool bacteria identification by culture - 01/28/19 19:53 QUANTITY OF GROWTH . [facility] Stool bacteria identification by culture SEE CHIQUITA Darden [facility] Complete blood count (CBC) with automate d white blood cell (WBC) differential - 01/29/19 04:56 Blood leukocytes automated count (number/volume) 4.6 10*3/uL 4.3-11.0 Blood erythrocytes automated count (number/volume) 3.59 10*6/uL 4.35-5.85 Venous blood hemoglobin measurement (mass/volume) 10.4 g/dL 11.5-16.0 Blood hematocrit (volume fraction) 32 % 35-52 Automated erythrocyte mean corpuscular volume 90 [ foz_us] 80-99 Automated erythrocyte mean corpuscular h emoglobin (mass per erythrocyte) 29 pg 25-34 Automated erythrocyte mean corpuscular h emoglobin concentration measurement (mass/volume) 32 g/dL 32-36 Automated erythrocyte distribution width ratio 17. 1 % 10.0- 14.5 Automated blood platelet count (count/volume) 346 10*3/uL 130-400 Automated blood platelet mean volume measurement 9.0 [foz_us] 7.4-10.4 Automated blood neutrophils/100 leukocytes 59 % 42-75 Automated blood lymphocytes/100 leukocytes 30 % 12-44 Blood monocytes/100 leukocytes 10 % 0-12 Automated blood eosinophils/100 leukocytes 1 % 0-10 Automated blood basophils/100 leukocytes 0 % 0-10 Blood neutrophils automated count (number/volume) 2.7 10*3 1.8-7.8 Blood lymphocytes automated count (number/volume) 1.4 10*3 1.0-4.0 Blood monocytes automated count (number/volume) 0. 5 10*3 0.0-1.0 Automated eosinophil count 0.0 10*3/uL 0 .0-0.3 Automated blood basophil count (count/volume) 0.0 10*3/uL 0.0-0.1 Comprehensive metabolic panel - 01/29/19 04:56 Serum or plasma sodium measurement (moles/volume) 139 mmol/L 135-145 Serum or plasma potassium measurement (moles/volume) 3.5 mmol/L 3.6-5.0 Serum or plasma chloride measurement (moles/volume) 104 mmol/L 98-107 Carbon dioxide 21 mmol/L 21-32 Serum or plasma anion gap determination (moles/volume) 14 mmol/L 5-14 Serum or plasma urea nitrogen measurement (mass/volume ) < mg/dL 7-18 Serum or plasma creatinine measurement (mass/volume) 0.63 mg/dL 0.60-1.30 Serum or plasma urea nitrogen/creatinine mass ratio 3 NRG Serum or plasma creatinine measurement w ith calculation of estimated glomerular filtration rate > NRG Serum or plasma glucose measurement (mass/volume) 81 mg/dL 70-105 Serum or plasma calcium measurement (mass/volume) 8.5 mg/dL 8.5-10.1 Serum or plasma total bilirubin measurement (mass/volu me) 0.2 mg/dL 0.1-1.0 Serum or plasma alkaline phosphatase justa surement (enzymatic activity/volume) 64 U/L 40-136 Serum or plasma aspartate aminotransfera se measurement (enzymatic activity/volume) 16 U/L 5-34 Serum or plasma alanine aminotransferase measurement (enzymatic activity/volume) 29 U/L 0-55 Serum or plasma protein measurement (mass/volume) 5.7 g/dL 6.4-8.2 Serum or plasma albumin measurement (mass/volume) 3.3 g/dL 3.2-4.5 CALCIUM CORRECTED 9.1 mg/dL 8.5-10.1 Complete blood count (CBC) with automate d white blood cell (WBC) differential - 03/02/19 19:55 Blood leukocytes automated count (number/volume) 5.7 10*3/uL 4.3-11.0 Blood erythrocytes automated count (number/volume) 5.03 10*6/uL 4.35-5.85 Venous blood hemoglobin measurement (mass/volume) 14.6 g/dL 11.5-16.0 Blood hematocrit (volume fraction) 43 % 35-52 Automated erythrocyte mean corpuscular volume 86 [ foz_us] 80-99 Automated erythrocyte mean corpuscular h emoglobin (mass per erythrocyte) 29 pg 25-34 Automated erythrocyte mean corpuscular h emoglobin concentration measurement (mass/volume) 34 g/dL 32-36 Automated erythrocyte distribution width ratio 14. 9 % 10.0- 14.5 Automated blood platelet count (count/volume) 312 10*3/uL 130-400 Automated blood platelet mean volume measurement 10.3 [foz_us] 7.4-10.4 Automated blood neutrophils/100 leukocytes 55 % 42-75 Automated blood lymphocytes/100 leukocytes 35 % 12-44 Blood monocytes/100 leukocytes 10 % 0-12 Automated blood eosinophils/100 leukocytes 0 % 0-10 Automated blood basophils/100 leukocytes 0 % 0-10 Blood neutrophils automated count (number/volume) 3.1 10*3 1.8-7.8 Blood lymphocytes automated count (number/volume) 2.0 10*3 1.0-4.0 Blood monocytes automated count (number/volume) 0. 6 10*3 0.0-1.0 Automated eosinophil count 0.0 10*3/uL 0 .0-0.3 Automated blood basophil count (count/volume) 0.0 10*3/uL 0.0-0.1 Comprehensive metabolic panel - 03/02/19 19:55 Serum or plasma sodium measurement (moles/volume) 139 mmol/L 135-145 Serum or plasma potassium measurement (moles/volume) 2.3 mmol/L 3.6-5.0 Serum or plasma chloride measurement (moles/volume) 92 mmol/L 98-107 Carbon dioxide 31 mmol/L 21-32 Serum or plasma anion gap determination (moles/volume) 16 mmol/L 5-14 Serum or plasma urea nitrogen measurement (mass/volume ) 9 mg/dL 7-18 Serum or plasma creatinine measurement (mass/volume) 0.91 mg/dL 0.60-1.30 Serum or plasma urea nitrogen/creatinine mass ratio 10 NRG Serum or plasma creatinine measurement w ith calculation of estimated glomerular filtration rate > NRG Serum or plasma glucose measurement (mass/volume) 112 mg/dL 70-105 Serum or plasma calcium measurement (mass/volume) 10.2 mg/dL 8.5-10.1 Serum or plasma total bilirubin measurement (mass/volu me) 0.6 mg/dL 0.1-1.0 Serum or plasma alkaline phosphatase justa surement (enzymatic activity/volume) 92 U/L 40-136 Serum or plasma aspartate aminotransfera se measurement (enzymatic activity/volume) 97 U/L 5-34 Serum or plasma alanine aminotransferase measurement (enzymatic activity/volume) 67 U/L 0-55 Serum or plasma protein measurement (mass/volume) 7.8 g/dL 6.4-8.2 Serum or plasma albumin measurement (mass/volume) 4.5 g/dL 3.2-4.5 CALCIUM CORRECTED 9.8 mg/dL 8.5-10.1 Lipase - 03/02/19 19:55 Lipase 109 U/L 8-78 Serum or plasma C reactive protein measu rement (mass/volume) - 03/02/19 19:55 Serum or plasma C reactive protein measurement (mass/v olume) 0.92 mg/dL 0.00-0.50 Complete blood count (CBC) with automate d white blood cell (WBC) differential - 03/03/19 07:10 Blood leukocytes automated count (number/volume) 4.7 10*3/uL 4.3-11.0 Blood erythrocytes automated count (number/volume) 4.61 10*6/uL 4.35-5.85 Venous blood hemoglobin measurement (mass/volume) 13.5 g/dL 11.5-16.0 Blood hematocrit (volume fraction) 40 % 35-52 Automated erythrocyte mean corpuscular volume 87 [ foz_us] 80-99 Automated erythrocyte mean corpuscular h emoglobin (mass per erythrocyte) 29 pg 25-34 Automated erythrocyte mean corpuscular h emoglobin concentration measurement (mass/volume) 34 g/dL 32-36 Automated erythrocyte distribution width ratio 14. 9 % 10.0- 14.5 Automated blood platelet count (count/volume) 293 10*3/uL 130-400 Automated blood platelet mean volume measurement 9.8 [foz_us] 7.4-10.4 Automated blood neutrophils/100 leukocytes 68 % 42-75 Automated blood lymphocytes/100 leukocytes 23 % 12-44 Blood monocytes/100 leukocytes 9 % 0-12 Automated blood eosinophils/100 leukocytes 0 % 0-10 Automated blood basophils/100 leukocytes 0 % 0-10 Blood neutrophils automated count (number/volume) 3.1 10*3 1.8-7.8 Blood lymphocytes automated count (number/volume) 1.1 10*3 1.0-4.0 Blood monocytes automated count (number/volume) 0. 4 10*3 0.0-1.0 Automated eosinophil count 0.0 10*3/uL 0 .0-0.3 Automated blood basophil count (count/volume) 0.0 10*3/uL 0.0-0.1 Comprehensive metabolic panel - 03/03/19 07:10 Serum or plasma sodium measurement (moles/volume) 141 mmol/L 135-145 Serum or plasma potassium measurement (moles/volume) 3.2 mmol/L 3.6-5.0 Serum or plasma chloride measurement (moles/volume) 100 mmol/L 98-107 Carbon dioxide 30 mmol/L 21-32 Serum or plasma anion gap determination (moles/volume) 11 mmol/L 5-14 Serum or plasma urea nitrogen measurement (mass/volume ) 5 mg/dL 7-18 Serum or plasma creatinine measurement (mass/volume) 0.76 mg/dL 0.60-1.30 Serum or plasma urea nitrogen/creatinine mass ratio 7 NRG Serum or plasma creatinine measurement w ith calculation of estimated glomerular filtration rate > NRG Serum or plasma glucose measurement (mass/volume) 129 mg/dL 70-105 Serum or plasma calcium measurement (mass/volume) 9.2 mg/dL 8.5-10.1 Serum or plasma total bilirubin measurement (mass/volu me) 0.5 mg/dL 0.1-1.0 Serum or plasma alkaline phosphatase justa surement (enzymatic activity/volume) 81 U/L 40-136 Serum or plasma aspartate aminotransfera se measurement (enzymatic activity/volume) 84 U/L 5-34 Serum or plasma alanine aminotransferase measurement (enzymatic activity/volume) 71 U/L 0-55 Serum or plasma protein measurement (mass/volume) 7.1 g/dL 6.4-8.2 Serum or plasma albumin measurement (mass/volume) 4.2 g/dL 3.2-4.5 CALCIUM CORRECTED 9.0 mg/dL 8.5-10.1 THYROID STIMULATING HORMONE - 03/03/19 0 7:10 THYROID STIMULATING HORMONE 1.21 u[iU]/mL 0.35-4.94 Acute hepatitis panel - 03/03/19 07:10 HEPATITIS A ANTIBODY IGM Non-Reactive N on-Reactive HEPATITIS B CORE BIANKA IGM Non-Reactive N on-Reactive Confirmatory quantitative serum or plasm a hepatitis B virus surface antigen measurement Non-Reactive Non-Reactive Serum hepatitis C virus antibody detection Non-Kassandra ctive Non-Reactive Complete blood count (CBC) with automate d white blood cell (WBC) differential - 03/04/19 05:30 Blood leukocytes automated count (number/volume) 4.7 10*3/uL 4.3-11.0 Blood erythrocytes automated count (number/volume) 3.96 10*6/uL 4.35-5.85 Venous blood hemoglobin measurement (mass/volume) 11.5 g/dL 11.5-16.0 Blood hematocrit (volume fraction) 36 % 35-52 Automated erythrocyte mean corpuscular volume 91 [ foz_us] 80-99 Automated erythrocyte mean corpuscular h emoglobin (mass per erythrocyte) 29 pg 25-34 Automated erythrocyte mean corpuscular h emoglobin concentration measurement (mass/volume) 32 g/dL 32-36 Automated erythrocyte distribution width ratio 16. 1 % 10.0- 14.5 Automated blood platelet count (count/volume) 255 10*3/uL 130-400 Automated blood platelet mean volume measurement 9.9 [foz_us] 7.4-10.4 Automated blood neutrophils/100 leukocytes 44 % 42-75 Automated blood lymphocytes/100 leukocytes 45 % 12-44 Blood monocytes/100 leukocytes 10 % 0-12 Automated blood eosinophils/100 leukocytes 1 % 0-10 Automated blood basophils/100 leukocytes 0 % 0-10 Blood neutrophils automated count (number/volume) 2.1 10*3 1.8-7.8 Blood lymphocytes automated count (number/volume) 2.2 10*3 1.0-4.0 Blood monocytes automated count (number/volume) 0. 5 10*3 0.0-1.0 Automated eosinophil count 0.0 10*3/uL 0 .0-0.3 Automated blood basophil count (count/volume) 0.0 10*3/uL 0.0-0.1 Comprehensive metabolic panel - 03/04/19 05:30 Serum or plasma sodium measurement (moles/volume) 141 mmol/L 135-145 Serum or plasma potassium measurement (moles/volume) 4.7 mmol/L 3.6-5.0 Serum or plasma chloride measurement (moles/volume) 109 mmol/L 98-107 Carbon dioxide 26 mmol/L 21-32 Serum or plasma anion gap determination (moles/volume) 6 mmol/L 5-14 Serum or plasma urea nitrogen measurement (mass/volume ) 3 mg/dL 7-18 Serum or plasma creatinine measurement (mass/volume) 0.65 mg/dL 0.60-1.30 Serum or plasma urea nitrogen/creatinine mass ratio 5 NRG Serum or plasma creatinine measurement w ith calculation of estimated glomerular filtration rate > NRG Serum or plasma glucose measurement (mass/volume) 102 mg/dL 70-105 Serum or plasma calcium measurement (mass/volume) 8.8 mg/dL 8.5-10.1 Serum or plasma total bilirubin measurement (mass/volu me) 0.5 mg/dL 0.1-1.0 Serum or plasma alkaline phosphatase justa surement (enzymatic activity/volume) 56 U/L 40-136 Serum or plasma aspartate aminotransfera se measurement (enzymatic activity/volume) 50 U/L 5-34 Serum or plasma alanine aminotransferase measurement (enzymatic activity/volume) 56 U/L 0-55 Serum or plasma protein measurement (mass/volume) 5.7 g/dL 6.4-8.2 Serum or plasma albumin measurement (mass/volume) 3.3 g/dL 3.2-4.5 CALCIUM CORRECTED 9.4 mg/dL 8.5-10.1 Whole blood basic metabolic panel - 08/19 04:40 Serum or plasma sodium measurement (moles/volume) 134 mmol/L 135-145 Serum or plasma potassium measurement (moles/volume) 5.5 mmol/L 3.6-5.0 Serum or plasma chloride measurement (moles/volume) 104 mmol/L 98-107 Carbon dioxide 23 mmol/L 21-32 Serum or plasma anion gap determination (moles/volume) 7 mmol/L 5-14 Serum or plasma urea nitrogen measurement (mass/volume ) 4 mg/dL 7-18 Serum or plasma creatinine measurement (mass/volume) 0.71 mg/dL 0.60-1.30 Serum or plasma urea nitrogen/creatinine mass ratio 6 NRG Serum or plasma creatinine measurement w ith calculation of estimated glomerular filtration rate > NRG Serum or plasma glucose measurement (mass/volume) 136 mg/dL 70-105 Serum or plasma calcium measurement (mass/volume) 9.4 mg/dL 8.5-10.1 Complete blood count (CBC) with automate d white blood cell (WBC) differential - 03/24/19 09:05 Blood leukocytes automated count (number/volume) 12.4 10*3/uL 4.3-11.0 Blood erythrocytes automated count (number/volume) 4.78 10*6/uL 4.35-5.85 Venous blood hemoglobin measurement (mass/volume) 13.9 g/dL 11.5-16.0 Blood hematocrit (volume fraction) 42 % 35-52 Automated erythrocyte mean corpuscular volume 87 [ foz_us] 80-99 Automated erythrocyte mean corpuscular h emoglobin (mass per erythrocyte) 29 pg 25-34 Automated erythrocyte mean corpuscular h emoglobin concentration measurement (mass/volume) 33 g/dL 32-36 Automated erythrocyte distribution width ratio 15. 1 % 10.0- 14.5 Automated blood platelet count (count/volume) 487 10*3/uL 130-400 Automated blood platelet mean volume measurement 9.7 [foz_us] 7.4-10.4 Automated blood neutrophils/100 leukocytes 82 % 42-75 Automated blood lymphocytes/100 leukocytes 9 % 12-44 Blood monocytes/100 leukocytes 9 % 0-12 Automated blood eosinophils/100 leukocytes 0 % 0-10 Automated blood basophils/100 leukocytes 0 % 0-10 Blood neutrophils automated count (number/volume) 10.1 10*3 1.8-7.8 Blood lymphocytes automated count (number/volume) 1.2 10*3 1.0-4.0 Blood monocytes automated count (number/volume) 1. 1 10*3 0.0-1.0 Automated eosinophil count 0.0 10*3/uL 0 .0-0.3 Automated blood basophil count (count/volume) 0.0 10*3/uL 0.0-0.1 Comprehensive metabolic panel - 03/24/19 09:05 Serum or plasma sodium measurement (moles/volume) 142 mmol/L 135-145 Serum or plasma potassium measurement (moles/volume) 3.3 mmol/L 3.6-5.0 Serum or plasma chloride measurement (moles/volume) 96 mmol/L 98-107 Carbon dioxide 25 mmol/L 21-32 Serum or plasma anion gap determination (moles/volume) 21 mmol/L 5-14 Serum or plasma urea nitrogen measurement (mass/volume ) 13 mg/dL 7-18 Serum or plasma creatinine measurement (mass/volume) 1.04 mg/dL 0.60-1.30 Serum or plasma urea nitrogen/creatinine mass ratio 13 NRG Serum or plasma creatinine measurement w ith calculation of estimated glomerular filtration rate 58 NRG Serum or plasma glucose measurement (mass/volume) 144 mg/dL 70-105 Serum or plasma calcium measurement (mass/volume) 11.0 mg/dL 8.5-10.1 Serum or plasma total bilirubin measurement (mass/volu me) 0.6 mg/dL 0.1-1.0 Serum or plasma alkaline phosphatase justa surement (enzymatic activity/volume) 106 U/L 40-136 Serum or plasma aspartate aminotransfera se measurement (enzymatic activity/volume) 21 U/L 5-34 Serum or plasma alanine aminotransferase measurement (enzymatic activity/volume) 18 U/L 0-55 Serum or plasma protein measurement (mass/volume) 8.7 g/dL 6.4-8.2 Serum or plasma albumin measurement (mass/volume) 4.4 g/dL 3.2-4.5 CALCIUM CORRECTED 10.7 mg/dL 8.5-10.1 Lipase - 03/24/19 09:05 Lipase 33 U/L 8-78 BMP - 07/09/19 13:46 GLUCOSE 79 mg/dL 65-99 UREA NITROGEN (BUN) 10 mg/dL 7-25 CREATININE 0.88 mg/dL 0.50-1.10 eGFR NON-AFR. BAHRAINI 82 mL/min/1.73m2 > OR = 60 eGFR 95 mL/min/1.73m2 > OR = 60 BUN/CREATININE RATIO NOT APPLICABLE (calc) 6-22 SODIUM 142 mmol/L 135-146 POTASSIUM 4.2 mmol/L 3.5-5.3 CHLORIDE 104 mmol/L 98-110 CARBON DIOXIDE 31 mmol/L 20-32 CALCIUM 10.5 mg/dL 8.6-10.2 VALPROIC ACID/DEPAKOTE - 10/02/19 13:08 VALPROIC ACID <12.5 mg/L 50.0-100.0 Complete blood count (CBC) with automate d white blood cell (WBC) differential - 10/20/19 04:45 Blood leukocytes automated count (number/volume) 12.8 10*3/uL 4.3-11.0 Blood erythrocytes automated count (number/volume) 5.43 10*6/uL 4.35-5.85 Venous blood hemoglobin measurement (mass/volume) 15.4 g/dL 11.5-16.0 Blood hematocrit (volume fraction) 47 % 35-52 Automated erythrocyte mean corpuscular volume 86 [ foz_us] 80-99 Automated erythrocyte mean corpuscular h emoglobin (mass per erythrocyte) 28 pg 25-34 Automated erythrocyte mean corpuscular h emoglobin concentration measurement (mass/volume) 33 g/dL 32-36 Automated erythrocyte distribution width ratio 16. 3 % 10.0- 14.5 Automated blood platelet count (count/volume) 457 10*3/uL 130-400 Automated blood platelet mean volume measurement 9.6 [foz_us] 7.4-10.4 Automated blood neutrophils/100 leukocytes 73 % 42-75 Automated blood lymphocytes/100 leukocytes 18 % 12-44 Blood monocytes/100 leukocytes 9 % 0-12 Automated blood eosinophils/100 leukocytes 0 % 0-10 Automated blood basophils/100 leukocytes 0 % 0-10 Blood neutrophils automated count (number/volume) 9.3 10*3 1.8-7.8 Blood lymphocytes automated count (number/volume) 2.3 10*3 1.0-4.0 Blood monocytes automated count (number/volume) 1. 2 10*3 0.0-1.0 Automated eosinophil count 0.0 10*3/uL 0 .0-0.3 Automated blood basophil count (count/volume) 0.0 10*3/uL 0.0-0.1 Comprehensive metabolic panel - 10/20/19 04:45 Serum or plasma sodium measurement (moles/volume) 139 mmol/L 135-145 Serum or plasma potassium measurement (moles/volume) 3.6 mmol/L 3.6-5.0 Serum or plasma chloride measurement (moles/volume) 92 mmol/L 98-107 Carbon dioxide 25 mmol/L 21-32 Serum or plasma anion gap determination (moles/volume) 22 mmol/L 5-14 Serum or plasma urea nitrogen measurement (mass/volume ) 24 mg/dL 7-18 Serum or plasma creatinine measurement (mass/volume) 1.40 mg/dL 0.60-1.30 Serum or plasma urea nitrogen/creatinine mass ratio 17 NRG Serum or plasma creatinine measurement w ith calculation of estimated glomerular filtration rate 41 NRG Serum or plasma glucose measurement (mass/volume) 182 mg/dL 70-105 Serum or plasma calcium measurement (mass/volume) 11.2 mg/dL 8.5-10.1 Serum or plasma total bilirubin measurement (mass/volu me) 0.8 mg/dL 0.1-1.0 Serum or plasma alkaline phosphatase justa surement (enzymatic activity/volume) 98 U/L 40-136 Serum or plasma aspartate aminotransfera se measurement (enzymatic activity/volume) 54 U/L 5-34 Serum or plasma alanine aminotransferase measurement (enzymatic activity/volume) 64 U/L 0-55 Serum or plasma protein measurement (mass/volume) 9.6 g/dL 6.4-8.2 Serum or plasma albumin measurement (mass/volume) 5.5 g/dL 3.2-4.5 Serum or plasma C reactive protein measu rement (mass/volume) - 10/20/19 04:45 Serum or plasma C reactive protein measurement (mass/v olume) 0.42 mg/dL 0.00-0.50 Lipase - 10/20/19 04:45 Lipase 52 U/L 8-78 Serum or plasma C reactive protein measu rement (mass/volume) - 10/20/19 04:45 Serum or plasma C reactive protein measurement (mass/v olume) 0.42 mg/dL 0.00-0.50 CMP - 10/28/19 17:28 GLUCOSE 112 mg/dL 65-99 UREA NITROGEN (BUN) 16 mg/dL 7-25 CREATININE 1.03 mg/dL 0.50-1.10 eGFR NON-AFR. BAHRAINI 67 mL/min/1.73m2 > OR = 60 eGFR 78 mL/min/1.73m2 > OR = 60 BUN/CREATININE RATIO NOT APPLICABLE (calc) 6-22 SODIUM 133 mmol/L 135-146 POTASSIUM 2.9 mmol/L 3.5-5.3 CHLORIDE 83 mmol/L 98-110 CARBON DIOXIDE 38 mmol/L 20-32 CALCIUM 10.1 mg/dL 8.6-10.2 PROTEIN, TOTAL 6.8 g/dL 6.1-8.1 ALBUMIN 4.3 g/dL 3.6-5.1 GLOBULIN 2.5 g/dL (calc) 1.9-3.7 ALBUMIN/GLOBULIN RATIO 1.7 (calc) 1.0-2. 5 BILIRUBIN, TOTAL 0.4 mg/dL 0.2-1.2 ALKALINE PHOSPHATASE 78 U/L 31-125 AST 29 U/L 10-30 ALT 46 U/L 6- CMP - 11/06/19 13:02 GLUCOSE 106 mg/dL 65-139 UREA NITROGEN (BUN) 4 mg/dL 7-25 CREATININE 0.63 mg/dL 0.50-1.10 eGFR NON-AFR. BAHRAINI 111 mL/min/1.73m2 > OR = 60 eGFR 128 mL/min/1.73m2 > OR = 60 BUN/CREATININE RATIO 6 (calc) 6-22 SODIUM 146 mmol/L 135-146 POTASSIUM 3.1 mmol/L 3.5-5.3 CHLORIDE 107 mmol/L 98-110 CARBON DIOXIDE 30 mmol/L 20-32 CALCIUM 9.2 mg/dL 8.6-10.2 PROTEIN, TOTAL 6.1 g/dL 6.1-8.1 ALBUMIN 3.9 g/dL 3.6-5.1 GLOBULIN 2.2 g/dL (calc) 1.9-3.7 ALBUMIN/GLOBULIN RATIO 1.8 (calc) 1.0-2. 5 BILIRUBIN, TOTAL 0.3 mg/dL 0.2-1.2 ALKALINE PHOSPHATASE 75 U/L 31-125 AST 18 U/L 10-30 ALT 25 U/L 6-29 Encounters ACCT No. Visit Date/Time Discharge Status Pt. Type Provider Facility Loc./Unit Complaint [id number] 08/29/2016 08:40:00 Document Registration [id number] 09/10/2014 13:11:00 09/10/2014 23:59: 59 CLS Outpatient SIDNEY BHATIA APRN [id number] 08/25/2014 14:03:00 08/25/2014 23:59: 59 CLS Outpatient SIDNEY BHATIA APRN [id number] 05/25/2014 12:29:00 05/25/2014 23:59: 59 CLS Outpatient JEFF PEREZ [id number] 04/01/2014 10:51:00 04/01/2014 23:59: 59 CLS Outpatient CHRISTIE PLASCENCIA APRN [id number] 04/01/2014 10:51:00 04/01/2014 23:59: 59 CLS Outpatient CHRISTIE PLASCENCIA APRN [id number] 12/10/2013 12:24:00 12/10/2013 23:59: 59 CLS Outpatient CEDRICK ROJAS APRN [id number] 09/10/2013 12:03:00 09/10/2013 23:59: 59 CLS Outpatient CEDRICK ROJAS APRN [id number] 06/16/2013 10:27:00 06/16/2013 23:59: 59 CLS Outpatient CEDRICK ROJAS APRN [id number] 05/18/2013 14:01:00 05/18/2013 23:59: 59 LELO Outpatient CEDRICK ROJAS APRN [id number] 03/10/2013 00:00:00 03/10/2013 23:59: 59 CLS Outpatient CEDRICK ROJAS APRN [id number] 02/05/2013 10:21:00 02/05/2013 23:59: 59 CLS Outpatient CEDRICK ROJAS APRN [id number] 08/16/2012 11:23:00 08/16/2012 23:59: 59 CLS Outpatient CEDRICK ROJAS APRN [id number] 03/26/2012 12:59:00 03/26/2012 23:59: 59 CLS Outpatient BILL SUERO APRN [id number] 03/26/2012 12:59:00 03/26/2012 23:59:5 9 CLS Outpatient BILL SUERO APRN [id number] 11/06/2012 14:50:00 Document Registration [id number] 01/04/2017 08:08:00 Document Registration [id number] 11/06/2019 13:00:00 11/06/2019 23:59: 59 CLS Outpatient SCARLET ALVES APRN [facility] [id number] 11/06/2019 13:00:00 Document Registration [id number] 10/28/2019 16:40:00 Document Registration [id number] 10/02/2019 13:00:00 Document Registration [id number] 07/09/2019 13:20:00 Document Registration [id number] 12/09/2018 17:20:00 Document Registration [id number] 05/02/2018 14:40:00 Document Registration [id number] 12/18/2017 08:40:00 Document Registration [id number] 08/12/2017 08:20:00 Document Registration [id number] 05/03/2017 08:40:00 Document Registration [id number] 05/02/2017 14:20:00 Document Registration [id number] 04/30/2017 10:00:00 Document Registration [id number] 10/20/2019 04:36:00 05:48:00 DIS Outpatient JORGE LUIS DURAN MD [facility] ER VOMITING,ABD PA IN [id number] 07/23/2019 08:45:00 23:59:59 CLS Preadmit SCARLET ALVES [facility] RAD SEIZURE DISORDER,ANEURY SM [id number] 06/11/2019 10:15:00 23:59:59 CLS Preadmit SCARLET ALVES [facility] RAD INTRACTABLE CHRONIC RON TESSIE [id number] 03/24/2019 08:43:00 11:13:00 DIS Emergency FABIAN BARNES, DUNG S [facility] ER VOMITING [id number] 03/10/2019 21:51:00 23:18:00 DIS Emergency SADAF WALSH [facility] ER N/V [id number] 03/02/2019 23:23:00 15:56:00 DIS Outpatient BARBARA BARNES, KRAIG Darden [facility] SDC INTRACTABLE N/V,HYPOKALEMIA,GASTROENTERITIS [id number] 01/23/2019 22:30:00 13:30:00 DIS Inpatient DARLINGTON DO, PENNY D [facility] 4TH SEPSIS,BOWEL OBSTRUCTIO N,COLITIS [id number] 12/16/2018 16:58:00 21:05:00 DIS Emergency MUKESH DOCHANTEL a [facility] ER CP [id number] 11/18/2018 20:11:00 00:05:00 [facility] ER VOMITING,ABD CRAMPING [id number] 10/01/2018 03:20:00 07:02:00 DIS Emergency ZAHRAA BARNES, MARY Hudson [facility] ER VOMITING [id number] 09/09/2018 13:35:00 16:25:00 DIS Emergency SADAF WALSH [facility] ER VOMITING [id number] 09/05/2018 04:44:00 05:45:00 DIS Emergency JENS BARNES, PAULA Chapman [facility] ER THROWING UP [id number] 08/12/2018 15:00:00 18:49:00 DIS Emergency SADAF WALSH [facility] ER THROWING UP,SEEN HERE R ECENTLY,NOT GETTING BETTER [id number] 08/11/2018 08:11:00 12:44:00 DIS Emergency JENS BARNES, PAULA Chapman [facility] ER VOMITING;ABD PAIN;HEAD PAIN [id number] 07/23/2017 07:48:00 018 23:59:59 CLS Outpatient DIONY XIONG [employer] [facility] RAD R74.8 [id number] 05/13/2017 07:00:00 017 23:59:59 CLS Preadmit DIONY [employer] [facility] RAD R74.8 ELEVATED LIVER EN ZYMES [id number] 01/31/2016 16:02:00 016 19:30:00 DIS 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 [id number] 11/27/2015 20:22:00 016 23:07:00 DIS Emergency JORGE LUIS DURAN MD [facility] ER VOMITTING [id number] 10/30/2015 12:31:00 016 13:22:00 DIS Emergency MARY VITAL MD [facility] ER MIGRAINE/POSS S EIZURE [id number] 10/23/2015 14:43:00 016 17:15:00 DIS 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 MIGRAINE/CHILLS [id number] 08/12/2015 05:42:00 23:59:59 CLS Outpatient PENNY ALMAZAN DO [facility] PREOP N/V,CONSTIPATION [id number] 08/09/2015 11:34:00 23:59:59 CLS Outpatient 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 [id number] 06/13/2015 02:40:00 17:50:00 DIS Inpatient ALYSA RUIZ MD [facility] 4TH VOMITING [id number] 03/28/2015 16:07:00 23:59:59 CLS Outpatient IRENE MCKEON MD [facility] RAD LBP [id number] 04/14/2014 23:31:00 00:17:00 DIS Emergency HOMERO BARNES, HARI Mathew [facility] ER SEIZURES [id number] 02/19/2014 14:25:00 16:32:00 DIS Outpatient SCARLET WATKINS DO [facility] SDC INTRACTABLE N/V [id number] 01/08/2014 06:53:00 23:59:59 CLS Outpatient BLANE BARR MD [facility] RT NEW ONSET SEIZURE [id number] 11/04/2013 19:32:00 22:22:00 DIS Emergency FAMILIA ELISE APRN [facility] ER POSS LOW POTASSIUM [id number] 11/01/2013 18:20:00 20:35:00 DIS Emergency ZAHRAA BARNES, MARY Hudson [facility] ER SEIZURES [id number] 09/21/2013 15:53:00 18:04:00 DIS Emergency FAMILIA ELISE APRN [facility] ER MULTIPLE COMPLAINTS [id number] 08/24/2013 09:25:00 23:59:59 CLS Outpatient CHRISTIE SCHOFIELD [facility] QUICK ARM INURY [id number] 08/19/2013 20:42:00 22:35:00 DIS Emergency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
[2019-11-15] MEDS ORDERED: ONDANSETRON 4 MG/2 ML (SDV) Z0FRAN IVP ONE (10:00)
[2019-11-15] MEDS ORDERED: ASPIRIN 81 MG CHEW (CHILDREN'S ASA) PO ONE (10:00)
[2019-11-15 10:06] LABS: ALBUMIN 4.6 GM/DL (3.2-4.5); CHLORIDE 106 MMOL/L (98-107); POTASSIUM 4.1 MMOL/L (3.6-5.0); SODIUM 144 MMOL/L (135-145)
[2019-11-15 10:07] LABS: CALCIUM 8.9 MG/DL (8.5-10.1)
[2019-11-15 10:08] LABS: FIBRIN DEGRADATION PRODUCTS 0.32 UG/ML (0.00-0.49); GLUCOSE 122 MG/DL (70-105); INR 0.9 (0.8-1.4)
[2019-11-15] MEDS ORDERED: PROMETHAZINE INJ 25 MG/ML (PHENERGAN) AMP ONE (10:08)
[2019-11-15 10:09] LABS: CARBON DIOXIDE 23 MMOL/L (21-32)
[2019-11-15 10:10] LABS: BILIRUBIN,TOTAL 0.3 MG/DL (0.1-1.0)
[2019-11-15 10:12] LABS: ALKALINE PHOSPHATASE 84 U/L (40-136); CREATININE SERUM 0.88 MG/DL (0.60-1.30); GFR ESTIMATED > 60
[2019-11-15 10:13] LABS: BUN/CREATININE RATIO 3
[2019-11-15 10:15] LABS: ALANINE AMINOTRANSFERASE 24 U/L (0-55); MAGNESIUM 1.8 MG/DL (1.6-2.4)
[2019-11-15] MEDS ORDERED: PROMETHAZINE INJ 25 MG/ML (PHENERGAN) AMP IVP ONE (10:15)
[2019-11-15 10:16] LABS: LIPASE 738 U/L (8-78)
--- NOTE | 2019-11-15 10:17 | NUR ---
Covid-19 test performed and sent to lab.
[2019-11-15] MEDS ORDERED: fentaNYL INJECTION 100 MCG/2 ML AMP IVP STA (10:23)
--- NOTE | 2019-11-15 10:23 | ED General ---
General Chief Complaint: Abdominal/GI Problems Stated Complaint: VOMITING / CHEST PAIN Nursing Triage Note: Patient ambulatory to ER room 10 with complaint of vomiting and chest pain. Patient states the vomiting began early this AM. She states the chest pain began with the vomiting. She states she saw Dr. Segura on and was told her Potassium was 2 and she has been taking 3 Potassium tablets daily. Patient also states she has a history of liver problems. Patient is actively vomiting yellow bile looking vomiting. Patient states the chest pain is in center chest and is non radiating. It hurts worse with vomiting and taking a deep breath. Nursing Sepsis Screen: No Definite Risk Source of Information: Patient Exam Limitations: No Limitations History of Present Illness Date Seen by Provider: Nov 15, 2019 Time Seen by Provider: 09:58 Initial Comments Here with report of persistent nausea and vomiting since this morning. Apparently she had low potassium earlier this week and was taking potassium tablets. Patient is actively vomiting on arrival. Denies exposure to anyone who is sick. She has had vomiting and cyclic vomiting problems before. She does admit to smoking marijuana and the last use was either 3 days ago or 1 week ago. She does admit to using weekly at least. Denies other drugs. Has central chest and back pain after vomiting. Chest pain she describes as sharp and burning. Denies breathing problems, upper respiratory symptoms or body aches otherwise. Timing/Duration: 4-6 Hours Severity: Moderate Associated Systoms: Chest Pain; No Cough, No Fever/Chills; Nausea/Vomiting; No Shortness of Air; Weakness Allergies and Home Medications Allergies Coded Allergies: morphine (Verified Allergy, Unknown, CAUSES "REBOUND HEADACHES", 08/20/13) baclofen (Verified Adverse Reaction, Severe, 06/13/15) PATIENT UNAWARE OF REACTION BUT WAS HOSPITALIZED AFTER TAKING MEDICATION AND WAS TOLD IT WAS A REACTION DUE TO THE MEDICATION SHE TOOK. meloxicam (Verified Adverse Reaction, Severe, 06/13/15) PATIENT UNAWARE OF REACTION BUT WAS HOSPITALIZED AFTER TAKING MEDICATION AND WAS TOLD IT WAS A REACTION DUE TO THE MEDICATION SHE TOOK. NSAIDS (Non-Steroidal Anti-Inflamma (Verified Adverse Reaction, Mild, have IBS and avoid NSAIDS, 12/04/12) Home Medications Amlodipine Besylate 10 Mg Tablet, 10 MG PO DAILY Prescribed by: KRAIG JIMENEZ on 03/05/19 9447 Dicyclomine HCl 20 Mg Tablet, 20 MG PO QID, (Reported) Duloxetine HCl 60 Mg Capsule.dr, 60 MG PO DAILY, (Reported) Hydrocodone/Acetaminophen 1 Each Tablet, 1-2 EACH PO Q6H PRN for PAIN-MODERATE Prescribed by: DUNG PERALTA MD on 03/24/19 1100 Promethazine HCl 25 Mg Tablet, 25 MG PO Q6H PRN for NAUSEA/VOMITING Prescribed by: DUNG PERALTA MD on 03/24/19 1100 Promethazine HCl 25 Mg Tablet, 25 MG PO Q8H PRN for NAUSEA/VOMITING Prescribed by: JORGE LUIS DURAN on 10/20/19 0544 Propranolol HCl 80 Mg Tablet, 80 MG PO TID Prescribed by: KRAIG JIMENEZ on 03/05/19 1559 Tizanidine HCl 4 Mg Tablet, 4 MG PO BID PRN for MUSCLE SPASMS, (Reported) Patient Home Medication List Home Medication List Reviewed: Yes Review of Systems Review of Systems Constitutional: see HPI; No chills, No fever EENTM: No nose congestion, No throat pain Respiratory: No cough, No short of breath Cardiovascular: chest pain; No edema Gastrointestinal: abdominal pain (epigastric), nausea, vomiting Genitourinary: no symptoms reported Musculoskeletal: back pain, muscle pain Skin: no symptoms reported Psychiatric/Neurological: No Symptoms Reported All Other Systems Reviewed Negative Unless Noted: Yes Past Ngcvmsn-Idrecw-Usqgix Hx Past Med/Social Hx: Reviewed Nursing Past Med/Soc Hx Patient Social History Alcohol Use: Occasionally Uses Recreational Drug Use: Yes (marijuana 3 days ago ) Drug of Choice: Marijuana; most recent use 5 mo ago Smoking Status: Never a Smoker 2nd Hand Smoke Exposure: No Recent Foreign Travel: No Contact w/Someone Who Travel: No Recent Infectious Disease Expo: No Recent Hopitalizations: No Physical Abuse: No Sexual Abuse: No Mistreated: No Fear: No Immunizations Up To Date Tetanus Booster (TDap): More than 5yrs PED Vaccines UTD: No Date of Pneumonia Vaccine: Mar 03, 2014 Date of Influenza Vaccine: Mar 03, 2015 Seasonal Allergies Seasonal Allergies: No Past Medical History Surgeries: Yes Bladder Surgery, Gallbladder, 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, Oophorectomy, Tubal Ligation Respiratory: Yes Asthma Currently Using CPAP: No Currently Using BIPAP: No Cardiac: No Neurological: Yes ("SEIZURE WITH LOW BP" PER PT) Headaches /Migraines, Seizure Disorder 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 Disorders: Yes (HYST 2005--NO PHYSICIAN DOCUMENTATION OF ANY KIND OF CANCER) 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 Sexually Transmitted Disease: Yes (HPV) HIV/AIDS: No Genitourinary: Yes Bladder Infection Gastrointestinal: Yes Irritable Bowel Musculoskeletal: Yes Chronic Back Pain Endocrine: No HEENT: Yes (POOR DENTITION) Loss of Vision: Denies Cancer: No (NO PHYSICIAN DOCUMENTATION / VERIFICATION OF ANY KIND OF CANCER) Cervical, Colon Psychosocial: Yes Anxiety, Depression Integumentary: No Blood Disorders: No Adverse Reaction/Blood Tranf: No Family Medical History Reviewed Nursing Family Hx Diabetes mellitus 19 FATHER FHx: brain tumor 19 MOTHER HPV infection G8 SISTER Heart Disease, Hypertension, Other Conditions/Hx Physical Exam Vital Signs Vital Signs - First Documented 11/15/19 09:33 Temp 36.2 Pulse 106 Resp 20 B/P (MAP) 179/138 (152) Pulse Ox 100 O2 Delivery Room Air Capillary Refill : Less Than 3 Seconds Height, Weight, BMI Height: 5'6.00" Weight: 203lbs. 6.4oz. 92.037244sx; 28.00 BMI Method:Stated General Appearance: No Apparent Distress, WD/WN, Anxious HEENT: PERRL/EOMI, Pharynx Normal, Other (poor dentition overall) Neck: Non Tender, Supple Respiratory: Lungs Clear, Normal Breath Sounds Cardiovascular: No Murmur, Tachycardia Gastrointestinal: Normal Bowel Sounds, Soft, Tenderness (upper abdomen along the musculature) Back: Normal Inspection, No CVA Tenderness, No Vertebral Tenderness Extremity: Normal Range of Motion, Non Tender Neurologic/Psychiatric: Alert, Oriented x3 Skin: Normal Color, Warm/Dry Progress/Results/Core Measures Suspected Sepsis Recent Fever Within 48 Hours: No Infection Criteria Present: None New/Unexplained Altered Menta: No Sepsis Screen: No Definite Risk SIRS Temperature: Pulse: 106 Respiratory Rate: 20 Laboratory Tests 11/15/19 09:47: White Blood Count 6.8 Blood Pressure 179 /138 Mean: 152 Laboratory Tests 11/15/19 09:47: Creatinine 0.88, INR Comment 0.9, Platelet Count 470H, Total Bilirubin 0.3 Results/Orders Lab Results Laboratory Tests Test 11/15/19 09:47 11/15/19 10:17 11/15/19 10:38 Range/Units White Blood Count 6.8 4.3-11.0 10^3/uL Red Blood Count 4.77 4.35-5.85 10^6/uL Hemoglobin 13.5 11.5-16.0 G/DL Hematocrit 42 35-52 % Mean Corpuscular Volume 89 80-99 FL Mean Corpuscular Hemoglobin 28 25-34 PG Mean Corpuscular Hemoglobin Concent 32 32-36 G/DL Red Cell Distribution Width 15.9 H 10.0-14.5 % Platelet Count 470 H 130-400 10^3/uL Mean Platelet Volume 9.0 7.4-10.4 FL Neutrophils (%) (Auto) 60 42-75 % Lymphocytes (%) (Auto) 31 12-44 % Monocytes (%) (Auto) 8 0-12 % Eosinophils (%) (Auto) 0 0-10 % Basophils (%) (Auto) 0 0-10 % Neutrophils # (Auto) 4.1 1.8-7.8 X 10^3 Lymphocytes # (Auto) 2.1 1.0-4.0 X 10^3 Monocytes # (Auto) 0.6 0.0-1.0 X 10^3 Eosinophils # (Auto) 0.0 0.0-0.3 10^3/uL Basophils # (Auto) 0.0 0.0-0.1 10^3/uL Erythrocyte Sedimentation Rate 37 H 0-20 MM/HR Prothrombin Time 12.0 L 12.2-14.7 SEC INR Comment 0.9 0.8-1.4 Activated Partial Thromboplast Time 28 24-35 SEC D-Dimer 0.32 0.00-0.49 UG/ML Sodium Level 144 135-145 MMOL/L Potassium Level 4.1 3.6-5.0 MMOL/L Chloride Level 106 98-107 MMOL/L Carbon Dioxide Level 23 21-32 MMOL/L Anion Gap 15 H 5-14 MMOL/L Blood Urea Nitrogen 3 L 7-18 MG/DL Creatinine 0.88 0.60-1.30 MG/DL Estimat Glomerular Filtration Rate > 60 BUN/Creatinine Ratio 3 Glucose Level 122 H 70-105 MG/DL Calcium Level 8.9 8.5-10.1 MG/DL Corrected Calcium 8.5-10.1 MG/DL Magnesium Level 1.8 1.6-2.4 MG/DL Total Bilirubin 0.3 0.1-1.0 MG/DL Aspartate Amino Transf (AST/SGOT) 25 5-34 U/L Alanine Aminotransferase (ALT/SGPT) 24 0-55 U/L Alkaline Phosphatase 84 40-136 U/L Lactate Dehydrogenase 201 125-220 U/L Myoglobin 19.1 10.0-92.0 NG/ML Troponin I < 0.028 <0.028 NG/ML C-Reactive Protein High Sensitivity 0.32 0.00-0.50 MG/DL Total Protein 8.0 6.4-8.2 GM/DL Albumin 4.6 H 3.2-4.5 GM/DL Lipase 738 H 8-78 U/L Procalcitonin 0.02 <0.10 NG/ML Urine Color YELLOW Urine Clarity CLEAR Urine pH 8.5 5-9 Urine Specific [place] 1.020 1.016-1.022 Urine Protein NEGATIVE NEGATIVE Urine Glucose (UA) NEGATIVE NEGATIVE Urine Ketones NEGATIVE NEGATIVE Urine Nitrite NEGATIVE NEGATIVE Urine Bilirubin NEGATIVE NEGATIVE Urine Urobilinogen 0.2 < = 1.0 MG/DL Urine Leukocyte Esterase NEGATIVE NEGATIVE Urine RBC (Auto) NEGATIVE NEGATIVE Urine RBC 0-2 /HPF Urine WBC NONE /HPF Urine Crystals NONE /LPF Urine Bacteria TRACE /HPF Urine Casts NONE /LPF Urine Mucus NEGATIVE /LPF Urine Culture Indicated NO Urine Opiates Screen NEGATIVE NEGATIVE Urine Oxycodone Screen NEGATIVE NEGATIVE Urine Methadone Screen NEGATIVE NEGATIVE Urine Propoxyphene Screen NEGATIVE NEGATIVE Urine Barbiturates Screen NEGATIVE NEGATIVE Ur Tricyclic Antidepressants Screen NEGATIVE NEGATIVE Urine Phencyclidine Screen NEGATIVE NEGATIVE Urine Amphetamines Screen NEGATIVE NEGATIVE Urine Methamphetamines Screen NEGATIVE NEGATIVE Urine Benzodiazepines Screen NEGATIVE NEGATIVE Urine Cocaine Screen NEGATIVE NEGATIVE Urine Cannabinoids Screen POSITIVE H NEGATIVE My Orders Orders - JORGE LUIS DURAN MD Cbc With Automated Diff (11/15/19 09:47) Magnesium (11/15/19 09:47) Chest 1 View, Ap/Pa Only (11/15/19:47) Ekg Tracing (11/15/19:47) Comprehensive Metabolic Panel (11/15/19:47) Myoglobin Serum (11/15/19:47) Protime With Inr (11/15/19:47) Partial Thromboplastin Time (11/15/19:47) O2 (11/15/19:47) Monitor-Rhythm Ecg Trace Only (11/15/19 09:47) Lipid Panel (11/16/19 06:00) Ed Iv/Invasive Line Start (11/15/19 09:47) Lipase (11/15/19 09:47) Troponin I (11/15/19 09:47) Aspirin Chewable Tablet (Baby Aspirin Ch (11/15/19 10:00) Ondansetron Injection (Zofran Injectio (11/15/19 10:00) Lactated Ringers (Lr 1000 Ml Iv Solution (11/15/19 09:47) Procalcitonin (Pct) (11/15/19 09:50) Hs C Reactive Protein (11/15/19 09:50) Erythrocyte Sedimentation Rate (11/15/19 09:50) LDH (11/15/19 09:50) Coronavirus Sars-Cov-2 So 2018 (11/15/19 09:50) Fibrin Degradation Products (11/15/19 09:47) Promethazine Injection (Phenergan Injec (11/15/19 10:08) Promethazine Injection (Phenergan Injec (11/15/19 10:15) Drug Screen Stat (Urine) (11/15/19 10:23) Ua Culture If Indicated (11/15/19 10:23) Fentanyl Injection (Sublimaze Injection (11/15/19 10:23) Lorazepam Injection (Ativan Injection) (11/15/19 11:30) Ct Abdomen/Pelvis W (11/15/19 11:16) Lactated Ringers (Lr 1000 Ml Iv Solution (11/15/19 11:16) Iohexol Injection (Omnipaque 350 Mg/Ml 1 (11/15/19 11:45) Received Contrast (Hold Metformin- Contr (11/15/19 11:45) Ns (Ivpb) (Sodium Chloride 0.9% Ivpb Bag (11/15/19 11:45) Ekg Tracing (11/15/19 13:05) Haloperidol Injection (Haldol Injectio (11/15/19 13:15) Ns Iv 500 Ml (Sodium Chloride 0.9%) (11/15/19 13:11) Diphenhydramine Injection (Benadryl Inje (11/15/19 13:15) Diphenhydramine Injection (Benadryl Inje (11/15/19 13:11) Ns Iv 500 Ml (Sodium Chloride 0.9%) (11/15/19 13:11) Medications Given in ED Current Medications Medications Dose Ordered Sig/Judi Route Start Time Stop Time Status Last Admin Dose Admin Aspirin 324 mg ONCE ONCE PO 11/15/19 10:00 11/15/19 10:01 DC 11/15/19 10:18 324 MG Diphenhydramine HCl 25 mg ONCE ONCE IVP 11/15/19 13:15 11/15/19 13:16 DC 11/15/19 13:17 25 MG Haloperidol Lactate 5 mg ONCE ONCE IV 11/15/19 13:15 11/15/19 13:16 DC 11/15/19 13:18 5 MG Iohexol 100 ml ONCE ONCE IV 11/15/19 11:45 11/15/19 11:46 DC 11/15/19 12:56 97 ML Lorazepam 1 mg ONCE ONCE IVP 11/15/19 11:30 11/15/19 11:31 DC 11/15/19 11:27 1 MG Ondansetron HCl 8 mg ONCE ONCE IVP 11/15/19 10:00 11/15/19 10:01 DC 11/15/19 09:56 8 MG Promethazine HCl 25 mg ONCE ONCE IVP 11/15/19 10:15 11/15/19 10:16 DC 11/15/19 10:13 25 MG Sodium Chloride 100 ml ONCE ONCE IV 11/15/19 11:45 11/15/19 11:46 DC 11/15/19 12:56 80 ML Sodium Chloride 500 ml @ 0 mls/hr Q0M ONCE IV 11/15/19 13:11 11/15/19 13:13 DC 11/15/19 13:18 500 MLS/HR Vital Signs/I&O 11/15/19 09:33 Temp 36.2 Pulse 106 Resp 20 B/P (MAP) 179/138 (152) Pulse Ox 100 O2 Delivery Room Air Capillary Refill : Less Than 3 Seconds Blood Pressure Mean: 152 Progress Note : Progress Note Seen and evaluated. IV, labs, UA, chest x-ray, EKG, Zofran 8 mg IV and LR 1 L bolus. Patient has persistent nausea and vomiting. Phenergan 25 mg IV ordered. Patient is complaining of back pain and central chest discomfort. Fentanyl 50 g IV ordered. I did discuss with her regarding stopping the use of THC due to its propensity for cyclic vomiting syndrome. Patient states that she did not know that and will stop smoking pot. Monitor patient. 1200: CT abdomen pelvis ordered due to elevated lipase to evaluate for pancreatitis. She did see Ativan 1 mg IV for persistent nausea and vomiting. Monitor patient. 1330: Normal saline 500 mL bolus, Benadryl 25 mg IV and Haldol 5 mg IV ordered for persistent nausea and vomiting. Monitor patient. 1411: I have spoken with Dr. Salvador and she accepts patient for admission, inpatient status. I discussed the case with Dr. Villa and he will see the patient in consult. Patient has pancreatitis, colitis and intractable nausea and vomiting likely secondary to cavernous use. Patient is still nauseated and unable to drink. She agrees to admission. ECG Initial ECG Impression Date: Nov 15, 2019 Initial ECG Impression Time: 09:36 Initial ECG Rate: 88 Initial ECG Comparisson: Unchanged Comment Sinus rhythm with left anterior fascicular block. Left axis deviation. No evidence of ST elevation ND. Interpreted by me. Diagnostic Imaging Diagonstic Imaging: Xray Plain Films/CT/US/NM/MRI: chest Comments [facility] [place], [place] NAME: DORIAN BROWN MED REC#: [id number] PT STATUS: REG ER : 1975 PHYSICIAN: JORGE LUIS DURAN MD ADMIT DATE: 11/15/19/ER Signed Date of Exam:11/15/19 CHEST 1 VIEW, AP/PA ONLY INDICATION: Vomiting with chest pain COMPARISON: 03/02/2019 FINDINGS: The lungs are clear, the heart and vessels normal. No effusion or pneumothorax. IMPRESSION: Negative. Dictated by: Dictated on workstation # [id number] Dict: 11/15/19 1039 Trans: 11/15/19 1227 [facility] [id number] Interpreted by: KAMRAN LEIGH Electronically signed by: KAMRAN LEIGH 11/15/19 1227 Diagonstic Imaging: CT Plain Films/CT/US/NM/MRI: abdomen, pelvis Comments [facility] [place] NAME: DORIAN BROWN MED REC#: [id number] PT STATUS: REG ER : 1975 PHYSICIAN: JORGE LUIS DURAN MD ADMIT DATE: 11/15/19/ER Draft Date of Exam:11/15/19 CT ABDOMEN/PELVIS W PROCEDURE: CT abdomen and pelvis with contrast. TECHNIQUE: Multiple contiguous axial images were obtained through the abdomen and pelvis after administration of intravenous contrast. Auto Exposure Controls were utilized during the CT exam to meet ALARA standards for radiation dose reduction. INDICATION: Vomiting and chest pain. CORRELATION is made with prior CT from 03/03/2019. FINDINGS: The lung bases are clear. The liver is unremarkable. Gallbladder is surgically absent. No biliary ductal dilatation is seen. The pancreas and spleen are unremarkable. No adrenal mass is detected. Kidneys are unremarkable. Aorta is non-aneurysmal. There does appear to be some generalized wall thickening of the transverse, descending and sigmoid colon. While this could in part be owing to incomplete distention, the possibility of a nonspecific infectious/inflammatory colitis cannot be entirely excluded. Small bowel loops are normal caliber. There is no obstruction. There is no free fluid or fluid collection. The bladder is unremarkable. Uterus is surgically absent. IMPRESSION: Generalized colonic wall thickening consistent with nonspecific infectious/inflammatory colitis. No abscess formation or bowel obstruction is seen. Dictated on workstation # [id number] Dict: 11/15/19 1259 Trans: 11/15/19 1320 [facility] [id number] Interpreted by: BHAVYA RANDALL MD Electronically signed by: Departure Communication (Admissions) Time/Spoke to Admitting Phy: 14:10 Time/Spoke to Consulting Phy: 14:05 Impression Primary Impression: Intractable nausea and vomiting Additional Impressions: Colitis Pancreatitis Qualified Codes: K85.90 - Acute pancreatitis without necrosis or infection, unspecified COVID-19 evaluation Disposition: ADMITTED INPATIENT Condition: Stable Admissions Decision to Admit Reason: Admit from ER (General) Decision to Admit/Date: Nov 15, 2019 Time/Decision to Admit Time: 14:10 Departure-Patient Inst. Referrals: [facility] (PCP) Primary Care Physician SCARLET ALVES (Family) Primary Care Physician JORGE LUIS DURAN MD Nov 15, 2019 10:22
[2019-11-15 10:44] LABS: BILIRUBIN,URINE NEGATIVE (NEGATIVE); CLARITY,URINE CLEAR; COLOR,URINE YELLOW; GLUCOSE, URINE (UA) NEGATIVE (NEGATIVE); KETONES,URINE NEGATIVE (NEGATIVE); LEUKOCYTE ESTERASE ,URINE NEGATIVE (NEGATIVE); NITRITE,URINE NEGATIVE (NEGATIVE); PH,URINE 8.5 (5-9); PROTEIN,URINE NEGATIVE (NEGATIVE)
--- NOTE | 2019-11-15 10:49 | Diagnostic Imaging Report ---
INDICATION: Vomiting with chest pain COMPARISON: 03/02/2019 FINDINGS: The lungs are clear, the heart and vessels normal. No effusion or pneumothorax. IMPRESSION: Negative. Dictated by: Dictated on workstation # [id number]
--- NOTE | 2019-11-15 10:54 | NUR ---
Patient resting quietly. No active vomiting at this time. She states pain is better with Fentanyl.
[2019-11-15 10:55] LABS: BACTERIA,URINE TRACE /HPF; RBC,URINE 0-2 /HPF
[2019-11-15 10:56] LABS: AMPHETAMINE SCREEN, URINE NEGATIVE (NEGATIVE); BARBITURATE SCREEN URINE NEGATIVE (NEGATIVE); BENZODIAZEPINES SCREEN URINE NEGATIVE (NEGATIVE); CANNABINOID SCREEN, URINE POSITIVE (NEGATIVE); COCAINE SCREEN URINE NEGATIVE (NEGATIVE); METHADONE STAT NEGATIVE (NEGATIVE); METHAMPHETAMINE SCREEN URINE S NEGATIVE (NEGATIVE); OPIATE SCREEN URINE NEGATIVE (NEGATIVE); OXYCODONE STAT NEGATIVE (NEGATIVE); PROPOXYPHENE STAT NEGATIVE (NEGATIVE); TRICYCLIC ANTIDEPRESSANTS SCRE NEGATIVE (NEGATIVE)
--- NOTE | 2019-11-15 11:20 | NUR ---
PT VOMITING. DR MYERS.
[2019-11-15] MEDS ORDERED: LORazepam INJ 2 MG/ML (ATIVAN) VIAL IVP ONE (11:30)
[2019-11-15] MEDS ORDERED: NS 100 ML (IVPB) BAG IV ONE (11:45)
[2019-11-15] MEDS ORDERED: HOLD METFORMIN - RECEIVED CONTRAST 20 ML VIAL IV SCH (11:45)
[2019-11-15] MEDS ORDERED: IOHEXOL 350 MG/ML 100 ML (OMNIPAQUE 350) VIAL IV ONE (11:45)
--- NOTE | 2019-11-15 13:08 | NUR ---
PT VOMITING ET DR AWARE.
[2019-11-15] MEDS ORDERED: NS IV 500 ML 500 ML IV ONE (13:11)
[2019-11-15] MEDS ORDERED: diphenhydrAMINE 50 MG/ML INJ (BENADRYL) ONE (13:11)
[2019-11-15] MEDS ORDERED: NS IV 500 ML 500 ML ONE (13:11)
[2019-11-15] MEDS ORDERED: diphenhydrAMINE 50 MG/ML INJ (BENADRYL) IVP ONE (13:15)
[2019-11-15] MEDS ORDERED: HALOPERIDOL 5 MG/ML (HALDOL) AMP IV ONE (13:15)
--- NOTE | 2019-11-15 13:20 | Diagnostic Imaging Report ---
PROCEDURE: CT abdomen and pelvis with contrast. TECHNIQUE: Multiple contiguous axial images were obtained through the abdomen and pelvis after administration of intravenous contrast. Auto Exposure Controls were utilized during the CT exam to meet ALARA standards for radiation dose reduction. INDICATION: Vomiting and chest pain. CORRELATION is made with prior CT from 03/03/2019. FINDINGS: The lung bases are clear. The liver is unremarkable. Gallbladder is surgically absent. No biliary ductal dilatation is seen. The pancreas and spleen are unremarkable. No adrenal mass is detected. Kidneys are unremarkable. Aorta is non-aneurysmal. There does appear to be some generalized wall thickening of the transverse, descending and sigmoid colon. While this could in part be owing to incomplete distention, the possibility of a nonspecific infectious/inflammatory colitis cannot be entirely excluded. Small bowel loops are normal caliber. There is no obstruction. There is no free fluid or fluid collection. The bladder is unremarkable. Uterus is surgically absent. IMPRESSION: Generalized colonic wall thickening consistent with nonspecific infectious/inflammatory colitis. No abscess formation or bowel obstruction is seen. Dictated by: Dictated on workstation # [id number]
--- NOTE | 2019-11-15 13:56 | NUR ---
RESTING IN BED WITH EYES CLOSED.
--- NOTE | 2019-11-15 13:59 | NUR ---
IN TALKING TO PT AT THIS TIME.
[2019-11-15] MEDS ORDERED: METOCLOPRAMIDE INJ 10 MG/2 ML (REGLAN) IVP PRN (14:15)
[2019-11-15] MEDS ORDERED: ALPRAZolam 0.25 MG (XANAX) TAB PO PRN (14:15)
[2019-11-15] MEDS ORDERED: PROMETHAZINE INJ 25 MG/ML (PHENERGAN) AMP IM PRN (14:15)
[2019-11-15] MEDS ORDERED: CALCIUM CARBONATE 500 MG (TUMS) TAB.CHEW PO PRN (14:15)
[2019-11-15] MEDS ORDERED: diphenhydrAMINE 25 MG TAB (BENADRYL) PO PRN (14:15)
[2019-11-15] MEDS ORDERED: PROCHLORPERAZINE 25 MG (COMPAZINE) SUPP PR PRN (14:15)
[2019-11-15] MEDS ORDERED: MELATONIN 3 MG TABLET PO PRN (14:15)
[2019-11-15] MEDS ORDERED: NITROGLYCERIN 2% OINT 1 GM UNIT DOSE PACKET TOP PRN (14:30)
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
--- NOTE | 2019-11-15 15:08 | NUR ---
DORIAN BROWN admitted to room 424-1, with an admitting diagnosis of chest pain, on 11/15/19 from ED via wheel chair , accompanied by stafff .DORIAN BROWN introduced to surroundings, call light, bed controls, phone, TV, temperature control, lights, meal times, smoking policy, visitor policy, side rail policy, bathrooms and showers. Patient Rights given to patient in the handbook. DORIAN BROWN verbalizes understanding that [facility] is not responsible for the loss or damage to any personal effects or valuables that are kept in the patients posession during their hospitalization. The following Patient Care Plans and discharge were discussed with the patient. DORIAN BROWN verbalizes understanding of Interdisciplinary Patient Education. Patient was informed about the Rapid Response Team and its purpose.
[2019-11-15 16:11] VITALS: BP 163/84
[2019-11-15] MEDS: ENOXAPARIN 40 MG/0.4 ML (LOVENOX) SYR SC SCH (16:12)
[2019-11-15] MEDS: NS IV 1000 ML 1,000 ML IV SCH ×2 (16:12→23:18)
[2019-11-15 16:15] VITALS: BP_SYST 187; BP_SYST 189; BP_DIAS 101; BP_DIAS 98
[2019-11-15] MEDS: ONDANSETRON 4 MG/2 ML (SDV) Z0FRAN IVP PRN ×2 (16:22→20:44)
[2019-11-15 16:26] VITALS: BP 187/98
[2019-11-15] MEDS ORDERED: RT-ALBUTEROL INHALER HFA (VENTOLIN HFA) 8 GM IH PRN (16:30)
[2019-11-15] MEDS: hydrALAZINE (APESOLINE) 20 MG/ML VIAL IV PRN ×2 (16:30→20:42)
[2019-11-15 18:00] VITALS: BP 165/89
[2019-11-15 20:34] VITALS: BP 183/91
[2019-11-15] MEDS: ACETAMINOPHEN 500 MG TAB (TYLENOL) PO PRN (20:46)
--- NOTE | 2019-11-15 23:56 | NUR ---
PT TRANSFERRED TO ROOM [address] CROSS. REPORT RECEIVED FROM LINDSEY BURKETT. THIS RN WILL ASSUME CARE FOR PATIENT AT THIS TIME.
[2019-11-16] VITALS: BP 167/110
[2019-11-16] MEDS: hydrALAZINE (APESOLINE) 20 MG/ML VIAL IV PRN ×2 (00:09→12:01)
[2019-11-16] MEDS: HYDROmorphone 2 MG/ML VIAL (DILAUDID) IVP PRN (00:37)
[2019-11-16 04:00] VITALS: BP 162/91
[2019-11-16] MEDS: NS IV 1000 ML 1,000 ML IV SCH ×3 (05:49→21:39)
[2019-11-16 06:22] LABS: BASOPHILS % (AUTO) 0 % (0-10); EOSINOPHILS % (AUTO) 0 % (0-10); HEMATOCRIT 39 % (35-52); HEMOGLOBIN 12.4 G/DL (11.5-16.0); LYMPHOCYTES # (AUTO) 1.5 X 10^3 (1.0-4.0); LYMPHOCYTES % (AUTO) 15 % (12-44); MEAN CORPUSCULAR HEMOGLOBIN 29 PG (25-34); MEAN CORPUSCULAR HGB CONC 32 G/DL (32-36); MEAN CORPUSCULAR VOLUME 89 FL (80-99); MONOCYTES # (AUTO) 0.9 X 10^3 (0.0-1.0); MONOCYTES % (AUTO) 9 % (0-12); NEUTROPHILS # (AUTO) 7.7 X 10^3 (1.8-7.8); NEUTROPHILS % (AUTO) 76 % (42-75); PLATELET COUNT 420 10^3/uL (130-400); RED CELL DISTRIBUTION WIDTH 15.8 % (10.0-14.5); WHITE BLOOD COUNT 10.2 10^3/uL (4.3-11.0)
--- NOTE | 2019-11-16 06:38 | History & Physical-Hospitalist ---
History of Present Illness HPI/Chief Complaint CC: Nausea, vomiting and abdominal pain HPI: This is a 44yoWF clinic pt of Colton Houser who presented with abdominal pain and severe nausea and vomiting. CT scan showed widespread colitis. UDS showed marijuana use and methamphetamine use of which she denies both. Pt overall has been slow to recovery. IV fluids and antiemetics given complaining of abdominal pain. Dr. Villa has been consulted. Will manage conservatively and it does not appear that this is infectious nature, likely elicit drug related. Source: patient, RN/MD Exam Limitations: no limitations Date Seen 11/16/19 Time Seen by a Provider: 10:00 Attending Physician Hyun Ruiz DO [facility] Referring Physician Date of Admission Nov 15, 2019 at 14:09 Home Medications & Allergies Home Medications Reviewed patient Home Medication Reconciliation performed by pharmacy medication reconciliations technician's helper and/or nursing. Patients Allergies have been reviewed. Allergies Allergies Coded Allergies morphine (Verified Allergy, Unknown, CAUSES "REBOUND HEADACHES", 08/20/13) baclofen (Verified Adverse Reaction, Severe, 06/13/15) PATIENT UNAWARE OF REACTION BUT WAS HOSPITALIZED AFTER TAKING MEDICATION AND WAS TOLD IT WAS A REACTION DUE TO THE MEDICATION SHE TOOK. meloxicam (Verified Adverse Reaction, Severe, 06/13/15) PATIENT UNAWARE OF REACTION BUT WAS HOSPITALIZED AFTER TAKING MEDICATION AND WAS TOLD IT WAS A REACTION DUE TO THE MEDICATION SHE TOOK. NSAIDS (Non-Steroidal Anti-Inflamma (Verified Adverse Reaction, Mild, have IBS and avoid NSAIDS, 12/04/12) Past Koxqtjd-Grmppl-Bawywk Hx Past Med/Social Hx: Reviewed Nursing Past Med/Soc Hx, Reviewed and Corrections made Patient Social History Marrital Status: single Employed/Student: unemployed Alcohol Use: Denies Use Recreational Drug Use: Yes (marijuana 3 days ago ) Drug of Choice: Marijuana; most recent use 5 mo ago Smoking Status: Never a Smoker 2nd Hand Smoke Exposure: No Physical Abuse Screen: No Sexual Abuse: No Recent Foreign Travel: No Contact w/other who traveled: No Recent Hopitalizations: No Recent Infectious Disease Expo: No Immunizations Up To Date Tetanus Booster (TDap): More than 5yrs Pediatric: No Date of Pneumonia Vaccine: Mar 03, 2014 Date of Influenza Vaccine: Mar 03, 2015 Seasonal Allergies Seasonal Allergies: No Past Medical History Surgeries: Bladder Surgery, Gallbladder, 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, Oophorectomy, Tubal Ligation Currently Using CPAP: No Currently Using BIPAP: No Neurological: Headaches /Migraines, Seizure Disorder : No 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: Yes (HYST 2005--NO PHYSICIAN DOCUMENTATION OF ANY KIND OF CANCER) Sexually Transmitted Disease: Yes (HPV) HIV/AIDS: No 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 Disorders: Denies 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 Genitourinary: Bladder Infection Gastrointestinal: Gastroesophageal Reflux, Irritable Bowel Musculoskeletal: Chronic Back Pain Loss of Vision: Denies Cancer: Cervical, Colon Psychosocial: Anxiety, Depression History of Blood Disorders: No Adverse Reaction to Blood [place]: No Family History Reviewed Nursing Family Hx Diabetes mellitus 19 FATHER FHx: brain tumor 19 MOTHER HPV infection G8 SISTER No Family History of: AIDS Abdominal aortic aneurysm Sedgwick's disease Alcoholism Alzheimer's disease Aphasia Arthritis Asthma Cancer of mouth Cardiovascular disease Cataracts Colon cancer Completed stroke Congenital disease Congenital heart disease Coronary thrombosis Cystic fibrosis Deafness or hearing loss Dementia Drug abuse Dysphasia Fibrocystic disease of breast Gastroenteritis Glaucoma Headache disorder Hypercholesterolemia Hypertension Infertility Kidney disease Myocardial infarction Neoplasm Not obtainable due to adoption Osteoporosis Parkinson's disease Prostate cancer Psychosocial problem Respiratory disorder Seizure disorder Severe allergy Thyroid disease Tuberculosis Visual disorder Heart Disease, Hypertension, Other Conditions/Hx Review of Systems Constitutional: see HPI Gastrointestinal: abdominal pain, loss of appetite, nausea, vomiting Physical Exam Physical Exam Vital Signs Vital Signs - First Documented 11/15/19 09:33 Temp 36.2 Pulse 106 Resp 20 B/P (MAP) 179/138 (152) Pulse Ox 100 O2 Delivery Room Air Capillary Refill : Less Than 3 SecondsLess Than 3 Seconds Height, Weight, BMI Height: 5'6.00" Weight: 203lbs. 6.4oz. 92.353911il; 28.31 BMI Method:Stated General Appearance: No Apparent Distress, Chronically ill, Obese Respiratory: Chest Non Tender, Lungs Clear, Normal Breath Sounds, No Accessory Muscle Use, No Respiratory Distress Cardiovascular: Regular Rate, Rhythm, No Edema, No Gallop, No JVD, No Murmur, Normal Peripheral Pulses Gastrointestinal: Tenderness Neurologic/Psychiatric: Alert, Oriented x3, No Motor/Sensory Deficits, Normal Mood/Affect Results Results/Procedures Labs Laboratory Tests 11/15/19 09:47 11/16/19 06:14 Patient resulted labs reviewed. Assessment/Plan Admission Diagnosis Assessment: Severe N/V Marijuana use Meth use Colitis appears drug related Plan: Supportive care Pain meds IVF Dr Delman Admission Status: Inpatient Order (span 2 midnights) Reason for Inpatient Admission: colitis with n/v Diagnosis/Problems Diagnosis/Problems (1) Intractable nausea and vomiting Status: Acute (2) Colitis Status: Acute (3) Pancreatitis Status: Acute Qualifiers: Chronicity: acute Pancreatitis type: unspecified pancreatitis type Acute pancreatitis complication: unspecified Qualified Codes: K85.90 - Acute pancreatitis without necrosis or infection, unspecified (4) Nausea & vomiting Status: Acute Clinical Quality Measures DVT/VTE Risk/Contraindication: Risk Factor Score Per Nursin RFS Level Per Nursing on Admit: 1=Low/No VTE PPX HYUN RUIZ DO Nov 16, 2019 06:38
[2019-11-16 06:50] LABS: ALANINE AMINOTRANSFERASE 41 U/L (0-55); ALBUMIN 4.1 GM/DL (3.2-4.5); ALKALINE PHOSPHATASE 80 U/L (40-136); BILIRUBIN,TOTAL 0.4 MG/DL (0.1-1.0); BUN/CREATININE RATIO 6; CALCIUM 9.3 MG/DL (8.5-10.1); CARBON DIOXIDE 21 MMOL/L (21-32); CHLORIDE 104 MMOL/L (98-107); CHOLESTEROL 221 MG/DL (< 200); CREATININE SERUM 0.79 MG/DL (0.60-1.30); GFR ESTIMATED > 60; GLUCOSE 116 MG/DL (70-105); HDL CHOLESTEROL 85 MG/DL (40-60); POTASSIUM 3.5 MMOL/L (3.6-5.0); SODIUM 141 MMOL/L (135-145); TOTAL PROTEIN 7.1 GM/DL (6.4-8.2); TRIGLYCERIDES 58 MG/DL (<150); VLDL CHOLESTEROL 12 MG/DL (5-40)
[2019-11-16 08:06] VITALS: BP 158/95
[2019-11-16] MEDS ORDERED: POTA10CA43 PO (10:18)
[2019-11-16] MEDS ORDERED: FAMO20TA3 PO (10:18)
[2019-11-16] MEDS ORDERED: ONDA4TAB11 PO (10:18)
[2019-11-16] MEDS ORDERED: ASPI-789 PO (10:18)
[2019-11-16] MEDS ORDERED: DOXE100C4 PO (10:18)
--- NOTE | 2019-11-16 10:19 | NUR ---
SPOKE WITH THE PT AND CALLED [facility] TO COMPLETE THE MED REC THE FOLLOWING ARE FILL DATES: 09-23-2019 DOXEPIN 100MG #30/30DS (I DID DOCUMENT THE PAST DUE FILL ON THE MED REC) 10-12-2019 DICYCLOMINE 20MG #120/30DS 10-12-2019 TIZANIDINE 4MG #60/30DS 10-28-2019 FAMOTIDINE 20MG #60/30DS 10-28-2019 ZOFRAN ODT 4MG #30/10DS 11-09-2019 POTASSIUM CL ER 10MEQ #90/30DS OTC MEDS: EXCEDRIN
[2019-11-16 11:30] VITALS: BP 173/97
[2019-11-16] MEDS: ONDANSETRON 4 MG/2 ML (SDV) Z0FRAN IVP PRN ×2 (11:52→21:39)
[2019-11-16] MEDS: fentaNYL INJECTION 100 MCG/2 ML AMP IVP PRN ×2 (12:02→19:28)
[2019-11-16] MEDS: ENOXAPARIN 40 MG/0.4 ML (LOVENOX) SYR SC SCH (14:20)
--- NOTE | 2019-11-16 14:40 | NUR ---
"RD ASSESSMENT PMHx: GERD; CA(cervical;colon); seizure disorder; THC use PT INTERACTION: Pt was semi-awake and pleasant during nutrition assessment. Pt states current appetite is poor, and has been for the last day. Note avg PO intake of 0% x3meal, per chart review. Pt states following a regular diet at home, and has no issues with chewing/swallowing food. Pt states some recent issues with nausea and vomiting. Note 1 episode of emesis on 11/14, and pt currently receiving zofran PRN, per chart review. Pt states no recent issues with constipation or diarrhea, and that her last BM was 11/14. Note pt not currently on bowel regimen per del review. Pt states no recent wt changes. Note recent 4# wt gain x1mon, per chart review. ABNORMAL NUTRITION-RELATED LAB VALUES LOW: K 3.5; BUN 5 HIGH: glu 116; AST 56; chol 221; HDL 85 Est. kcal needs: 3296-7729 kcal | 20-25 kcal/kg Est. Pro needs: 62-77 g Pro | 0.8-1.0 g Pro/kg PES STATEMENT: Inadequate oral intake (NI-2.1) related to loss of appetite | nausea | vomiting as evidenced by pt interview | avg PO intake 0% x3meal INTERVENTION: Continue with current diet order of Clear Liquid diet. Encouraged pt to eat when able. Pt may benefit from nutrition supplementation if PO intake remains low. Will continue to follow and reassess as pt needs, intake, and status change. MONITOR/EVALUATE: PO Intake; Plan of Care; Hydration Status; Weight Status; Lab Values Gregoria Schmidt, MS, RD, LD"
[2019-11-16 16:09] VITALS: BP 153/88
[2019-11-16 19:53] VITALS: BP 151/89
[2019-11-17] VITALS (12 sets, daily range): BP systolic 130–190; BP diastolic 73–105
[2019-11-17] MEDS: HYDROmorphone 2 MG/ML VIAL (DILAUDID) IVP PRN ×3 (02:53→18:39)
[2019-11-17] MEDS: NS IV 1000 ML 1,000 ML IV SCH ×3 (06:19→22:49)
[2019-11-17] MEDS: fentaNYL INJECTION 100 MCG/2 ML AMP IVP PRN ×3 (07:53→23:43)
[2019-11-17] MEDS: hydrALAZINE (APESOLINE) 20 MG/ML VIAL IV PRN (08:22)
--- NOTE | 2019-11-17 08:22 | Consultation - Surgery ---
History of Present Illness History of Present Illness Patient Consulted On(jayda/time) 11/16/19 13:18 Date Seen by Provider: Nov 16, 2019 Time Seen by Provider: 13:18 History of Present Illness Consult requested by Dr. Salvador for Epigastric pain n/v 44 year old female who has been feeling ill for about a week. She has epigastric pain that she rates about an 8. Constant burning sometimes sharp pain. No radiation. Nothing making it better or worse. Patient also with coffee ground emesis last couple days. Hard to keep any food down. Patient denies fever sweats chills shortness of breath or chest pain. Patient states she smokes marijuana every other day. Allergies and Home Medications Allergies Coded Allergies: morphine (Verified Allergy, Unknown, CAUSES "REBOUND HEADACHES", 08/20/13) baclofen (Verified Adverse Reaction, Severe, 06/13/15) PATIENT UNAWARE OF REACTION BUT WAS HOSPITALIZED AFTER TAKING MEDICATION AND WAS TOLD IT WAS A REACTION DUE TO THE MEDICATION SHE TOOK. meloxicam (Verified Adverse Reaction, Severe, 06/13/15) PATIENT UNAWARE OF REACTION BUT WAS HOSPITALIZED AFTER TAKING MEDICATION AND WAS TOLD IT WAS A REACTION DUE TO THE MEDICATION SHE TOOK. NSAIDS (Non-Steroidal Anti-Inflamma (Verified Adverse Reaction, Mild, have IBS and avoid NSAIDS, 12/04/12) Home Medications Aspirin/Acetaminophen/Caffeine 1 Each Tablet, 2 EACH PO Q6-8HR PRN for Headache, (Reported) Dicyclomine HCl 20 Mg Tablet, 20 MG PO QID, (Reported) Doxepin HCl 100 Mg Capsule, 100 MG PO HS, (Reported) LAST FILLED 09-23-2019 #30 Famotidine 20 Mg Tablet, 40 MG PO HS, (Reported) TAKES 2 (20MG) TABS Ondansetron 4 Mg Tab.rapdis, 4 MG PO TID PRN for NAUSEA-1ST LINE, (Reported) Potassium Chloride 10 Meq Capsule.er, 10 MEQ PO TID, (Reported) Tizanidine HCl 4 Mg Tablet, 4 MG PO BID PRN for MUSCLE SPASMS, (Reported) Patient Home Medication List Home Medication List Reviewed: Yes Past Mgktlnw-Umzqfy-Iietyq Hx Patient Social History Alcohol Use: Denies Use Recreational Drug Use: Yes (marijuana 3 days ago ) Drug of Choice: Marijuana every other day Smoking Status: Never a Smoker 2nd Hand Smoke Exposure: No Recent Foreign Travel: No Contact w/Someone Who Travel: No Recent Infectious Disease Expo: No Recent Hopitalizations: No Physical Abuse Screen: No Sexual Abuse: No Immunizations Up To Date Tetanus Booster (TDap): More than 5yrs PED Vaccines UTD: No Date of Pneumonia Vaccine: Mar 03, 2014 Date of Influenza Vaccine: Mar 03, 2015 Seasonal Allergies Seasonal Allergies: No Surgeries History of Surgeries: Yes Surgeries: Bladder Surgery, Gallbladder, 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, Oophorectomy, Tubal Ligation Respiratory History of Respiratory Disorde: Yes Respiratory Disorders: Asthma Cardiovascular History of Cardiac Disorders: No Neurological History of Neurological Disord: Yes ("SEIZURE WITH LOW BP" PER PT) Neurological Disorders: Headaches /Migraines, Seizure Disorder 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 System : No Hx 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 Disorders: Yes (HYST 2005--NO PHYSICIAN DOCUMENTATION OF ANY KIND OF CANCER) Sexually Transmitted Disease: Yes (HPV) HIV/AIDS: No 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 Disorders: Denies 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 Genitourinary History of Genitourinary Disor: Yes Genitourinary Disorders: Bladder Infection Gastrointestinal History of Gastrointestinal Di: Yes Gastrointestinal Disorders: Gastroesophageal Reflux, Irritable Bowel Musculoskeletal History of Musculoskeletal Dis: Yes Musculoskeletal Disorders: Chronic Back Pain Endocrine History of Endocrine Disorders: No HEENT History of HEENT Disorders: Yes (POOR DENTITION) Loss of Vision: Denies Cancer History of Cancer: No (NO PHYSICIAN DOCUMENTATION / VERIFICATION OF ANY KIND OF CANCER) Cancer: Cervical, Colon Psychosocial History of Psychiatric Problem: Yes (MARIJUANA USE EVERY OTHER DAY ) Behavioral Health Disorders: Anxiety, Depression Integumentary History of Skin or Integumenta: No Blood Transfusions History of Blood Disorders: No Adverse Reaction to a Blood Tr: No Reviewed Nursing Assessment Reviewed/Agree w Nursing PMH: Yes Family Medical History Significant Family History: Heart Disease, Hypertension, Other Conditions/Hx Family Medial History: Diabetes mellitus 19 FATHER FHx: brain tumor 19 MOTHER HPV infection G8 SISTER No Family History of: AIDS Abdominal aortic aneurysm [place]'s disease Alcoholism Alzheimer's disease Aphasia Arthritis Asthma Cancer of mouth Cardiovascular disease Cataracts Colon cancer Completed stroke Congenital disease Congenital heart disease Coronary thrombosis Cystic fibrosis Deafness or hearing loss Dementia Drug abuse Dysphasia Fibrocystic disease of breast Gastroenteritis Glaucoma Headache disorder Hypercholesterolemia Hypertension Infertility Kidney disease Myocardial infarction Neoplasm Not obtainable due to adoption Osteoporosis Parkinson's disease Prostate cancer Psychosocial problem Respiratory disorder Seizure disorder Severe allergy Thyroid disease Tuberculosis Visual disorder Review of Systems-General Constitutional: see HPI; No chills, No fever EENTM: no symptoms reported; No hearing loss, No ear pain Respiratory: no symptoms reported; No dyspnea on exertion, No short of breath Cardiovascular: no symptoms reported; No chest pain, No edema Gastrointestinal: abdominal pain (epigastric), hematemesis, nausea, vomiting Genitourinary: No decreased output, No discharge Musculoskeletal: No joint pain, No muscle pain Skin: No change in color, No change in hair/nails Psychiatric/Neurological: Denies Anxiety, Denies Depressed All Other Systems Reviewed Negative Unless Noted: Yes (Negative excepted noted.) Physical Exam-General Problems Physical Exam Vital Signs Vital Signs - First Documented 11/15/19 09:33 Temp 36.2 Pulse 106 Resp 20 B/P (MAP) 179/138 (152) Pulse Ox 100 O2 Delivery Room Air Capillary Refill : Less Than 3 SecondsLess Than 3 Seconds General Appearance: WD/WN, no apparent distress HEENT: PERRL/EOMI, normal ENT inspection, other (poor dentition) Neck: non-tender, full range of motion, supple Respiratory: chest non-tender, no respiratory distress, no accessory muscle use Cardiovascular: regular rate, rhythm, no edema Gastrointestinal: soft, distended (minimal), tenderness (epigstric) Rectal: deferred Back: normal inspection, no CVA tenderness Extremities: normal range of motion, normal inspection, no pedal edema Neurologic/Psychiatric: life insurance underwriter II-XII nml as tested, no motor/sensory deficits, alert, normal mood/affect, oriented x 3 Skin: normal color, warm/dry Lymphatic: no adenopathy Assessment/Plan Assessment/Plan Assessment/Plan epigastric abdominal pain nausea and vomiting coffee ground emesis GERD chronic marijuana use plan NPO after midnight consent for EGD tomorrow continue medical management Clinical Quality Measures DVT/VTE Risk/Contraindication: Risk Factor Score Per Nursin RFS Level Per Nursing on Admit: 1=Low/No VTE PPX PENNY ALMAZAN DO Nov 17, 2019 08:22
--- NOTE | 2019-11-17 10:53 | NUR ---
PT TAKEN OFF FLOOR FOR PROCEDURE.
[2019-11-17] MEDS ORDERED: LACTATED RINGERS 1,000 ML IV ONE (11:06)
[2019-11-17] MEDS ORDERED: MIDAZOLAM 2 MG/2 ML (VERSED) VIAL ONE (11:10)
[2019-11-17] MEDS ORDERED: proPOfol 200 MG/20 ML (DIPRIVAN) VIAL IV ONE ×2 (11:10→11:22)
--- NOTE | 2019-11-17 11:13 | Progress Note - Surgery ---
Subjective Date Seen by a Provider: Nov 17, 2019 Time Seen by a Provider: 11:11 Subjective/Events-last exam still with nausea and emesis. still with epigastric abd pain unchanged from yesterday NPO. Denies fever sweats chills shortness of breath or chest pain at this time. Objective Exam Vital Signs Date Time Temp Pulse Resp B/P (MAP) Pulse Ox O2 Delivery O2 Flow Rate FiO2 11/17/19 10:29 148/79 (102) 11/17/19 10:13 Room Air 11/17/19 08:28 36.9 101 18 190/105 (133) 95 Room Air 11/17/19 08:00 100 Room Air 11/17/19 06:39 92 11/17/19 04:00 37.1 105 20 174/83 (113) 96 Room Air 11/17/19 01:04 101 11/17/19 00:00 36.8 101 20 151/81 (104) 96 Room Air 11/16/19 20:00 Room Air 11/16/19 19:53 37.4 110 18 151/89 (109) 99 Room Air 11/16/19 19:11 114 11/16/19 18:47 Room Air 11/16/19 16:09 37.6 111 20 153/88 (109) 98 Room Air 11/16/19 12:38 108 11/16/19 11:30 37.4 110 20 173/97 (122) 100 Room Air I & O 11/17/19 07:00 Intake Total 2000 ml Output Total 100 ml Balance 1900 ml Capillary Refill : Less Than 3 SecondsLess Than 3 Seconds General Appearance: No Apparent Distress, Chronically ill, Obese HEENT: PERRL/EOMI, Pharynx Normal, Other (poor dentition ) Neck: Non Tender, Supple Respiratory: Chest Non Tender, No Accessory Muscle Use, No Respiratory Distress Cardiovascular: Regular Rate, Rhythm, No Edema, Normal Peripheral Pulses Gastrointestinal: soft, tenderness (epigastric area) Extremity: Normal Range of Motion, Non Tender Neurologic/Psychiatric: Alert, Oriented x3, No Motor/Sensory Deficits, Normal Mood/Affect Skin: Normal Color, Warm/Dry Lymphatic: No Adenopathy Assessment/Plan Assessment/Plan Assessment/Plan epigastric abdominal pain nausea and vomiting coffee ground emesis GERD plan NPO consent for EGD today continue medical management further recs pending egd results Clinical Quality Measures DVT/VTE Risk/Contraindication: Risk Factor Score Per Nursin RFS Level Per Nursing on Admit: 1=Low/No VTE PPX PENNY ALMAZAN DO Nov 17, 2019 11:13
[2019-11-17] MEDS ORDERED: HURRICAINE EXT TUBE (BENZOCAINE) XX PRN (11:15)
[2019-11-17] MEDS ORDERED: LACTATED RINGERS 1,000 ML IV PRN (11:15)
--- NOTE | 2019-11-17 11:44 | Progress Note-Post Operative ---
Post-Operative Progess Note Surgeon (s)/Labor Arbitrator (s) Surgeon PENNY ALMAZAN DO Labor Arbitrator: na Pre-Operative Diagnosis nausea vomiting epigastric abdominal pain Post-Operative Diagnosis hiatal hernia, erosive esophagitis Procedure & Operative Findings Date of Procedure 11/17/19 Procedure Performed/Findings egd c biopsies and esophageal brushing Anesthesia Type poer mda Estimated Blood Loss Estimated blood loss (mL): scant Specimens/Packing Specimens Removed antrum, dist esophagus, brushing of esophagus PENNY ALMAZAN DO Nov 17, 2019 11:43
--- NOTE | 2019-11-17 12:29 | Anesthesia-General Post-Op ---
MAC Patient Condition Mental Status/LOC: Same as Preop Cardiovascular: Satisfactory Nausea/Vomiting: Absent Respiratory: Satisfactory Pain: Controlled Complications: Absent Post Op Complications Complications None Follow Up Care/Instructions Patient Instructions None needed. Anesthesiology Discharge Order Discharge Order Patient is doing well, no complaints, stable vital signs, no apparent adverse anesthesia problems. ALLEN AGUILERA DO Nov 17, 2019 12:29
--- NOTE | 2019-11-17 13:58 | OPERATIVE REPORT ---
DATE OF SERVICE: 11/17/2019 PREOPERATIVE DIAGNOSES: Nausea, vomiting, epigastric abdominal pain. POSTOPERATIVE DIAGNOSES: Hiatal hernia, risks of esophagitis. PROCEDURE: EGD with biopsies and esophageal brushings. SURGEON: Penny Gramajo DO ANESTHESIA: Per MDA. ESTIMATED BLOOD LOSS: Scant. COMPLICATIONS: None. INDICATIONS: The patient is a 44-year-old female admitted for nausea, vomiting, epigastric abdominal pain. She understands risks and benefits of procedure and wished to proceed with procedure. Consent was signed and on the chart. DESCRIPTION OF PROCEDURE: The patient was taken to the endoscopy suite, placed in left lateral recumbent position. Timeout was performed. Scope was inserted in mouth, down the esophagus, stomach and into the duodenum without difficulty. There were no polyps, masses or ulcerations within the duodenum. Scope was slowly retracted back into the stomach where it was further insufflated. No polyps, masses or ulcerations. Biopsy of the antrum was obtained. Scope was retroflexed noting some small hiatal hernia, no other pathology noted. Scope was returned to its normal position, slowly withdrawn to distal esophagus and then slowly retracted back. Significant erosive esophagitis in the distal portion of the esophagus. Multiple biopsies were obtained. The esophageal brushings were obtained. Scope was then slowly retracted back to completely remove noting no other pathology. The patient tolerated procedure well without any complications. She was taken to recovery room in stable condition. RECOMMENDATIONS: The patient will be placed on Protonix 40 mg b.i.d. We will add Carafate 1 gram four times a day. Await biopsy results. The patient will likely need repeat endoscopy in 2-3 months. Job ID: [id number] DocumentID: [id number] Dictated Date: 11/17/2019 11:45:53 Building Energy Retrofit Technician Date: 11/17/2019 13:57:10 Dictated By: PENNY GRAMAJO DO [facility]
[2019-11-17] MEDS: SUCRALFATE 1 GM (CARAFATE) TAB PO SCH ×2 (15:03→20:10)
[2019-11-17] MEDS: ENOXAPARIN 40 MG/0.4 ML (LOVENOX) SYR SC SCH (15:03)
[2019-11-17] MEDS: ONDANSETRON 4 MG/2 ML (SDV) Z0FRAN IVP PRN (18:39)
[2019-11-17] MEDS: ACETAMINOPHEN 500 MG TAB (TYLENOL) PO PRN (18:50)
--- NOTE | 2019-11-17 19:06 | Progress Note - Hospitalist ---
Subjective HPI/CC On Admission Date Seen by Provider: Nov 17, 2019 Time Seen by Provider: 10:00 CC: Nausea, vomiting and abdominal pain HPI: This is a 44yoWF clinic pt of Colton Houser who presented with abdominal pain and severe nausea and vomiting. CT scan showed widespread colitis. UDS showed marijuana use and methamphetamine use of which she denies both. Pt overall has been slow to recovery. IV fluids and antiemetics given complaining of abdominal pain. Dr. Villa has been consulted. Will manage conservatively and it does not appear that this is infectious nature, likely elicit drug related. Subjective/Events-last exam Pt still having abdominal pain EGD will be performed today Overall seems to be doing a lot better, she appears to be doing better Pt seems to be more rested since recovering from meth use Labs reviewed, everything normalizing Review of Systems General: Fatigue Gastrointestinal: Abdominal Pain Objective Exam Vital Signs Vital Signs Date Time Temp Pulse Resp B/P (MAP) Pulse Ox O2 Delivery O2 Flow Rate FiO2 11/17/19 18:50 38.4 11/17/19 16:10 109 16 143/76 (98) 98 Room Air 11/17/19 11:40 4 Capillary Refill : Less Than 3 SecondsLess Than 3 Seconds General Appearance: No Apparent Distress, WD/WN, Chronically ill, Obese Respiratory: Chest Non Tender, Lungs Clear, Normal Breath Sounds, No Accessory Muscle Use, No Respiratory Distress Cardiovascular: Regular Rate, Rhythm, No Edema, No Gallop, No JVD, No Murmur, Normal Peripheral Pulses Neurologic/Psychiatric: Alert, Oriented x3, No Motor/Sensory Deficits, Depressed Affect Results/Procedures Lab Patient resulted labs reviewed. Assessment/Plan Assessment and Plan Assess & Plan/Chief Complaint Assessment: Severe N/V Marijuana use Meth use Colitis appears drug related Plan: Supportive care Pain meds IVF Dr Villa EGD today Diagnosis/Problems Diagnosis/Problems (1) Intractable nausea and vomiting Status: Acute (2) Colitis Status: Acute (3) Pancreatitis Status: Acute Qualifiers: Chronicity: acute Pancreatitis type: unspecified pancreatitis type Acute pancreatitis complication: unspecified Qualified Codes: K85.90 - Acute pancreatitis without necrosis or infection, unspecified (4) Nausea & vomiting Status: Acute Clinical Quality Measures DVT/VTE Risk/Contraindication: Risk Factor Score Per Nursin RFS Level Per Nursing on Admit: 1=Low/No VTE PPX JOSE RUIZ DO Nov 17, 2019 19:06
[2019-11-17] MEDS: PANTOPRAZOLE 40 MG (PROTONIX) VIAL IV SCH (20:10)
[2019-11-18] VITALS (7 sets, daily range): BP systolic 133–182; BP diastolic 71–95
[2019-11-18] MEDS: fentaNYL INJECTION 100 MCG/2 ML AMP IVP PRN ×5 (04:38→21:18)
[2019-11-18 04:43] LABS: BASOPHILS % (AUTO) 0 % (0-10); EOSINOPHILS # (AUTO) 0.1 10^3/uL (0.0-0.3); EOSINOPHILS % (AUTO) 1 % (0-10); HEMATOCRIT 39 % (35-52); HEMOGLOBIN 12.5 G/DL (11.5-16.0); LYMPHOCYTES # (AUTO) 2.2 X 10^3 (1.0-4.0); LYMPHOCYTES % (AUTO) 20 % (12-44); MEAN CORPUSCULAR HEMOGLOBIN 29 PG (25-34); MEAN CORPUSCULAR HGB CONC 32 G/DL (32-36); MEAN CORPUSCULAR VOLUME 90 FL (80-99); MEAN PLATELET VOLUME 9.2 FL (7.4-10.4); MONOCYTES # (AUTO) 0.9 X 10^3 (0.0-1.0); MONOCYTES % (AUTO) 8 % (0-12); NEUTROPHILS # (AUTO) 7.7 X 10^3 (1.8-7.8); NEUTROPHILS % (AUTO) 71 % (42-75); PLATELET COUNT 386 10^3/uL (130-400); RED CELL DISTRIBUTION WIDTH 15.5 % (10.0-14.5); WHITE BLOOD COUNT 10.9 10^3/uL (4.3-11.0)
[2019-11-18 04:58] LABS: ALBUMIN 3.9 GM/DL (3.2-4.5); CHLORIDE 104 MMOL/L (98-107); POTASSIUM 3.1 MMOL/L (3.6-5.0); SODIUM 138 MMOL/L (135-145)
[2019-11-18 05:00] LABS: CALCIUM 9.2 MG/DL (8.5-10.1)
[2019-11-18 05:01] LABS: GLUCOSE 87 MG/DL (70-105); TOTAL PROTEIN 6.8 GM/DL (6.4-8.2)
[2019-11-18 05:02] LABS: CARBON DIOXIDE 24 MMOL/L (21-32)
[2019-11-18 05:03] LABS: BILIRUBIN,TOTAL 0.5 MG/DL (0.1-1.0)
[2019-11-18 05:04] LABS: ALKALINE PHOSPHATASE 68 U/L (40-136); CREATININE SERUM 0.67 MG/DL (0.60-1.30); GFR ESTIMATED > 60
[2019-11-18 05:05] LABS: BUN/CREATININE RATIO 6
[2019-11-18 05:07] LABS: ALANINE AMINOTRANSFERASE 29 U/L (0-55)
[2019-11-18] MEDS: SUCRALFATE 1 GM (CARAFATE) TAB PO SCH ×4 (05:14→20:43)
[2019-11-18] MEDS: NS IV 1000 ML 1,000 ML IV SCH ×3 (05:15→23:13)
[2019-11-18] MEDS ORDERED: KCL 10 MEQ TAB (MICRO K) PO NR (07:00)
[2019-11-18] MEDS: POTASSIUM CL 10MEQ/50ML IVPB 50 ML IV SCH ×4 (07:22→10:56)
[2019-11-18] MEDS: PANTOPRAZOLE 40 MG (PROTONIX) VIAL IV SCH ×2 (08:31→20:43)
[2019-11-18] MEDS: ONDANSETRON 4 MG/2 ML (SDV) Z0FRAN IVP PRN ×3 (08:31→18:57)
[2019-11-18] MEDS: KCL 10 MEQ TAB (MICRO K) PO SCH ×2 (08:31→18:50)
[2019-11-18] MEDS: hydrALAZINE (APESOLINE) 20 MG/ML VIAL IV PRN ×2 (09:41→20:43)
[2019-11-18] MEDS: HYDROmorphone 2 MG/ML VIAL (DILAUDID) IVP PRN (11:00)
--- NOTE | 2019-11-18 11:07 | Progress Note - Hospitalist ---
Subjective HPI/CC On Admission Date Seen by Provider: Nov 18, 2019 Time Seen by Provider: 10:30 CC: Nausea, vomiting and abdominal pain HPI: This is a 44yoWF clinic pt of Colton Houser who presented with abdominal pain and severe nausea and vomiting. CT scan showed widespread colitis. UDS showed marijuana use and methamphetamine use of which she denies both. Pt overall has been slow to recovery. IV fluids and antiemetics given complaining of abdominal pain. Dr. Villa has been consulted. Will manage conservatively and it does not appear that this is infectious nature, likely elicit drug related. Subjective/Events-last exam Abdominal pain still continues Gastritis on EGD yesterday Will hopefully be able to DC her soon I told her I would like her to ambulate in the halls today to gain strength Review of Systems Gastrointestinal: Abdominal Pain Objective Exam Vital Signs Vital Signs Date Time Temp Pulse Resp B/P (MAP) Pulse Ox O2 Delivery O2 Flow Rate FiO2 11/18/19 19:21 95 Room Air 21 11/18/19 15:42 37.0 105 11/18/19 15:41 20 133/71 (91) 11/17/19 11:40 4 Capillary Refill : Less Than 3 SecondsLess Than 3 Seconds General Appearance: No Apparent Distress, WD/WN Respiratory: Chest Non Tender, Lungs Clear, Normal Breath Sounds, No Accessory Muscle Use, No Respiratory Distress Cardiovascular: Regular Rate, Rhythm, No Edema, No Gallop, No JVD, No Murmur, Normal Peripheral Pulses Neurologic/Psychiatric: Alert, Oriented x3, No Motor/Sensory Deficits, Normal Mood/Affect Results/Procedures Lab Laboratory Tests 11/18/19 04:23 Patient resulted labs reviewed. Assessment/Plan Assessment and Plan Assess & Plan/Chief Complaint Assessment: Severe N/V Marijuana use Meth use Colitis appears drug related Gastritis on EGD Plan: Supportive care Pain meds IVF Dr Villa Diagnosis/Problems Diagnosis/Problems (1) Intractable nausea and vomiting Status: Acute (2) Colitis Status: Acute (3) Pancreatitis Status: Acute Qualifiers: Chronicity: acute Pancreatitis type: unspecified pancreatitis type Acute pancreatitis complication: unspecified Qualified Codes: K85.90 - Acute pa ncreatitis without necrosis or infection, unspecified (4) Nausea & vomiting Status: Acute Clinical Quality Measures DVT/VTE Risk/Contraindication: Risk Factor Score Per Nursin RFS Level Per Nursing on Admit: 1=Low/No VTE PPX JOSE RUIZ DO Nov 18, 2019 11:07
--- NOTE | 2019-11-18 13:43 | Progress Note - Surgery ---
Subjective Date Seen by a Provider: Nov 18, 2019 Time Seen by a Provider: 10:32 Subjective/Events-last exam Feeling a little better. Still with epigastric abdominal pain. Nausea improved slightly. Says she's fatigued. Denies fever sweats chills shortness of breath or chest pain. Objective Exam Vital Signs Date Time Temp Pulse Resp B/P (MAP) Pulse Ox O2 Delivery O2 Flow Rate FiO2 11/18/19 12:00 37.0 109 16 142/82 (102) 97 Room Air 11/18/19 08:49 100 Room Air 11/18/19 08:00 36.8 89 20 175/81 (112) 96 Room Air 11/18/19 04:58 37.3 102 18 166/95 (118) 99 Room Air 11/18/19 00:19 37.3 100 16 150/89 (109) 92 Room Air 11/17/19 20:10 95 Room Air 11/17/19 19:44 37.7 11/17/19 19:33 37.7 121 16 159/73 (101) 95 Room Air 11/17/19 18:50 38.4 11/17/19 16:10 37.2 109 16 143/76 (98) 98 Room Air I & O 11/18/19 07:00 Intake Total 2800 ml Output Total 2150 ml Balance 650 ml Capillary Refill : Less Than 3 SecondsLess Than 3 Seconds General Appearance: No Apparent Distress, WD/WN, Chronically ill, Obese HEENT: PERRL/EOMI, Pharynx Normal, Other (poor dentition ) Neck: Non Tender, Supple Respiratory: Chest Non Tender, No Accessory Muscle Use, No Respiratory Distress Cardiovascular: Regular Rate, Rhythm, No Edema, Normal Peripheral Pulses Gastrointestinal: soft, distended (minimal), tenderness (epigastric) Extremity: Normal Range of Motion, Non Tender Neurologic/Psychiatric: Alert, Oriented x3, No Motor/Sensory Deficits, Depressed Affect Skin: Normal Color, Warm/Dry Lymphatic: No Adenopathy Results Lab Laboratory Tests 11/18/19 04:23: White Blood Count 10.9, Red Blood Count 4.28L, Hemoglobin 12.5, Hematocrit 39, Mean Corpuscular Volume 90, Mean Corpuscular Hemoglobin 29, Mean Corpuscular Hemoglobin Concent 32, Red Cell Distribution Width 15.5H, Platelet Count 386, Mean Platelet Volume 9.2, Neutrophils (%) (Auto) 71, Lymphocytes (%) (Auto) 20, Monocytes (%) (Auto) 8, Eosinophils (%) (Auto) 1, Basophils (%) (Auto) 0, Neutrophils # (Auto) 7.7, Lymphocytes # (Auto) 2.2, Monocytes # (Auto) 0.9, Eosinophils # (Auto) 0.1, Basophils # (Auto) 0.0, Sodium Level 138, Potassium Level 3.1L, Chloride Level 104, Carbon Dioxide Level 24, Anion Gap 10, Blood Urea Nitrogen 4L, Creatinine 0.67, Estimat Glomerular Filtration Rate > 60, BUN/Creatinine Ratio 6, Glucose Level 87, Calcium Level 9.2, Corrected Calcium 9.3, Total Bilirubin 0.5, Aspartate Amino Transf (AST/SGOT) 19, Alanine Aminotransferase (ALT/SGPT) 29, Alkaline Phosphatase 68, Total Protein 6.8, Albumin 3.9 Microbiology 11/16/19 MRSA Screen - Final, Complete MRSA not isolated Assessment/Plan Assessment/Plan Assessment/Plan epigastric abdominal pain nausea and vomiting coffee ground emesis GERD chronic marijuana use erosive esophagitis carafate protonix may have component of fungal await micro continue medical management Clinical Quality Measures DVT/VTE Risk/Contraindication: Risk Factor Score Per Nursin RFS Level Per Nursing on Admit: 1=Low/No VTE PPX PENNY ALMAZAN DO Nov 18, 2019 13:43
[2019-11-18] MEDS: ENOXAPARIN 40 MG/0.4 ML (LOVENOX) SYR SC SCH (14:04)
[2019-11-18] MEDS: ACETAMINOPHEN 500 MG TAB (TYLENOL) PO PRN (14:08)
[2019-11-19 00:12] VITALS: BP 151/82
[2019-11-19] MEDS: HYDROmorphone 2 MG/ML VIAL (DILAUDID) IVP PRN (01:07)
[2019-11-19 04:44] VITALS: BP 126/87
[2019-11-19] MEDS: NS IV 1000 ML 1,000 ML IV SCH ×2 (05:13→06:25)
[2019-11-19] MEDS: SUCRALFATE 1 GM (CARAFATE) TAB PO SCH ×2 (05:38→09:28)
[2019-11-19 05:56] LABS: BASOPHILS % (AUTO) 0 % (0-10); EOSINOPHILS # (AUTO) 0.1 10^3/uL (0.0-0.3); EOSINOPHILS % (AUTO) 1 % (0-10); HEMATOCRIT 37 % (35-52); HEMOGLOBIN 11.5 G/DL (11.5-16.0); LYMPHOCYTES % (AUTO) 40 % (12-44); MEAN CORPUSCULAR HEMOGLOBIN 29 PG (25-34); MEAN CORPUSCULAR HGB CONC 31 G/DL (32-36); MEAN CORPUSCULAR VOLUME 91 FL (80-99); MEAN PLATELET VOLUME 9.2 FL (7.4-10.4); MONOCYTES # (AUTO) 0.5 X 10^3 (0.0-1.0); MONOCYTES % (AUTO) 10 % (0-12); NEUTROPHILS # (AUTO) 2.4 X 10^3 (1.8-7.8); NEUTROPHILS % (AUTO) 48 % (42-75); PLATELET COUNT 357 10^3/uL (130-400); RED CELL DISTRIBUTION WIDTH 15.5 % (10.0-14.5); WHITE BLOOD COUNT 4.9 10^3/uL (4.3-11.0)
[2019-11-19 06:22] LABS: ALANINE AMINOTRANSFERASE 23 U/L (0-55); ALBUMIN 3.4 GM/DL (3.2-4.5); ALKALINE PHOSPHATASE 52 U/L (40-136); BILIRUBIN,TOTAL 0.2 MG/DL (0.1-1.0); BUN/CREATININE RATIO 6; CALCIUM 8.5 MG/DL (8.5-10.1); CARBON DIOXIDE 24 MMOL/L (21-32); CHLORIDE 107 MMOL/L (98-107); CREATININE SERUM 0.66 MG/DL (0.60-1.30); GFR ESTIMATED > 60; GLUCOSE 94 MG/DL (70-105); POTASSIUM 3.5 MMOL/L (3.6-5.0); SODIUM 140 MMOL/L (135-145); TOTAL PROTEIN 5.7 GM/DL (6.4-8.2)
[2019-11-19] MEDS: fentaNYL INJECTION 100 MCG/2 ML AMP IVP PRN (06:26)
[2019-11-19] MEDS: ONDANSETRON 4 MG/2 ML (SDV) Z0FRAN IVP PRN (06:26)
[2019-11-19 08:00] VITALS: BP 163/91
[2019-11-19] MEDS: KCL 10 MEQ TAB (MICRO K) PO SCH (09:29)
[2019-11-19] MEDS: PANTOPRAZOLE 40 MG (PROTONIX) VIAL IV SCH (09:29)
[2019-11-19] MEDS: ACETAMINOPHEN 500 MG TAB (TYLENOL) PO PRN (09:32)
[2019-11-19] MEDS ORDERED: PANT40TA2 PO (10:11)
[2019-11-19] MEDS ORDERED: SUCR1TAB PO (10:11)
[2019-11-19] MEDS ORDERED: AMLO5TAB4 PO (10:11)
[2019-11-19] MEDS ORDERED: HYDR-83 PO (10:11)
--- NOTE | 2019-11-19 10:12 | Discharge Summary ---
Discharge Summary Hospital Course Was the Problem List Reviewed?: Yes Problems/Dx: (1) Intractable nausea and vomiting Status: Acute (2) Colitis Status: Acute (3) Pancreatitis Status: Acute Qualifiers: Qualified Codes: K85.90 - Acute pancreatitis without necrosis or infection, unspecified (4) Nausea & vomiting Status: Acute Hospital Course Date of Admission: Nov 15, 2019 at 14:09 Admission Diagnosis : Family Physician/Provider: Jose Alfredo Houser Date of Discharge: 11/19/19 Discharge Diagnosis: abdominal pain, meth use, gastritis on EGD, pancreatitis, colitis drug related Hospital Course: Patient had a lengthy course after admitted for abdominal pain and meth use and pancreatitis and colitis all related to meth use. EGD performed revealing gastritis so PPI and Carafate ordered along with CLD. Abdominal pain resolved by the time of DC and meth use cessation was counseled and she was DC in good condition. Labs and Pending Lab Test: Laboratory Tests 11/19/19 05:20: White Blood Count 4.9, Red Blood Count 4.04L, Hemoglobin 11.5, Hematocrit 37, Mean Corpuscular Volume 91, Mean Corpuscular Hemoglobin 29, Mean Corpuscular Hemoglobin Concent 31L, Red Cell Distribution Width 15.5H, Platelet Count 357, Mean Platelet Volume 9.2, Neutrophils (%) (Auto) 48, Lymphocytes (%) (Auto) 40, Monocytes (%) (Auto) 10, Eosinophils (%) (Auto) 1, Basophils (%) (Auto) 0, Neut rophils # (Auto) 2.4, Lymphocytes # (Auto) 2.0, Monocytes # (Auto) 0.5, Eosinophils # (Auto) 0.1, Basophils # (Auto) 0.0, Sodium Level 140, Potassium Level 3.5L, Chloride Level 107, Carbon Dioxide Level 24, Anion Gap 9, Blood Urea Nitrogen 4L, Creatinine 0.66, Estimat Glomerular Filtration Rate > 60, BUN/Creatinine Ratio 6, Glucose Level 94, Calcium Level 8.5, Corrected Calcium 9.0, Total Bilirubin 0.2, Aspartate Amino Transf (AST/SGOT) 18, Alanine Aminotransferase (ALT/SGPT) 23, Alkaline Phosphatase 52, Total Protein 5.7L, Albumin 3.4 Microbiology 11/17/19 Fungal Culture 1 - Preliminary, Resulted Culture In Progress Home Meds Active Hydrocodone-Acetamin 5-325 mg (Hydrocodone/Acetaminophen) 1 Each Tablet 1 Each PO Q6H Protonix (Pantoprazole Sodium) 40 Mg Tablet.dr 40 Mg PO DAILY Norvasc (Amlodipine Besylate) 5 Mg Tablet 5 Mg PO DAILY Sucralfate 1 Gm Tablet 1 Gm PO ACHS Reported Excedrin Migraine Caplet (Aspirin/Acetaminophen/Caffeine) 1 Each Tablet 2 Each PO Q6-8HR PRN Potassium Chloride 10 Meq Capsule.er 10 Meq PO TID Ondansetron Odt (Ondansetron) 4 Mg Tab.rapdis 4 Mg PO TID PRN Acid Clinical Data Assistant (FAMOTIDINE) (Famotidine) 20 Mg Tablet 40 Mg PO HS TAKES 2 (20MG) TABS Doxepin HCl 100 Mg Capsule 100 Mg PO HS LAST FILLED 09-23-2019 #30 Tizanidine HCl 4 Mg Tablet 4 Mg PO BID PRN Dicyclomine HCl 20 Mg Tablet 20 Mg PO QID Assessment/Pt Instructions Dr Gramajo as scheduled Discharge Planning: <30 minutes discharge planning Discharge Instructions Discharge Diet: No Restrictions Discharge Physical Examination Vital Signs Vital Signs Date Time Temp Pulse Resp B/P (MAP) Pulse Ox O2 Delivery O2 Flow Rate FiO2 11/19/19 08:00 36.6 109 20 163/91 (115) 96 Room Air 11/18/19 20:30 4.00 11/18/19 19:21 21 General Appearance: No Apparent Distress, WD/WN, Chronically ill Allergies: Coded Allergies: morphine (Verified Allergy, Unknown, CAUSES "REBOUND HEADACHES", 08/20/13) baclofen (Verified Adverse Reaction, Severe, 06/13/15) PATIENT UNAWARE OF REACTION BUT WAS HOSPITALIZED AFTER TAKING MEDICATION AND WAS TOLD IT WAS A REACTION DUE TO THE MEDICATION SHE TOOK. meloxicam (Verified Adverse Reaction, Severe, 06/13/15) PATIENT UNAWARE OF REACTION BUT WAS HOSPITALIZED AFTER TAKING MEDICATION AND WAS TOLD IT WAS A REACTION DUE TO THE MEDICATION SHE TOOK. NSAIDS (Non-Steroidal Anti-Inflamma (Verified Adverse Reaction, Mild, have IBS and avoid NSAIDS, 12/04/12) Discharge Summary Date of Admission Nov 15, 2019 at 14:09 Date of Discharge Discharge Date: Nov 19, 2019 Admission Diagnosis Assessment: Severe N/V Marijuana use Meth use Colitis appears drug related Plan: Supportive care Pain meds IVF Dr Villa Discharge Diagnosis Assessment: Severe N/V Marijuana use Meth use Colitis appears drug related Gastritis on EGD Plan: Supportive care Pain meds IVF Dr Villa (1) Intractable nausea and vomiting Status: Acute (2) Colitis Status: Acute (3) Pancreatitis Status: Acute Qualifiers: Qualified Codes: K85.90 - Acute pancreatitis without necrosis or infection, unspecified (4) Nausea & vomiting Status: Acute Clinical Quality Measures DVT/VTE Risk/Contraindication: Risk Factor Score Per Nursin RFS Level Per Nursing on Admit: 1=Low/No VTE PPX JOSE RUIZ DO Nov 19, 2019 10:12
--- NOTE | 2019-11-19 11:40 | NUR ---
RX AND INST AND VERBALIZED UNDERSTANDING. IV REMOVED AND DISCHARGED AMBULATORY WITH DEVELOPMENT EDITOR.
== END 2019-11-19 11:40 | disposition home or self-care (01) | DRG 393 ==
LOC: EDUNIT# 09:25 → ER 09:27 → 4TH 14:09
PROVIDERS: ADMIT Internal Medicine; ATTEND Internal Medicine
PROC: 0DB38ZX Excision of Lower Esophagus, Via Natural or Artificial Opening Endoscopic, Diagnostic (ICD-10-PCS; 2019-11-17)
PROC: 0DD58ZX Extraction of Esophagus, Via Natural or Artificial Opening Endoscopic, Diagnostic (ICD-10-PCS; 2019-11-17)
PROC: 0DB78ZX Excision of Stomach, Pylorus, Via Natural or Artificial Opening Endoscopic, Diagnostic (ICD-10-PCS; principal; 2019-11-17 12:00)
DX: K52.1 Toxic gastroenteritis and colitis (principal); K85.30 Drug induced acute pancreatitis without necrosis or infection; K29.60 Other gastritis without bleeding; K21.0 Gastro-esophageal reflux disease with esophagitis; T43.625A Adverse effect of amphetamines, initial encounter; K44.9 Diaphragmatic hernia without obstruction or gangrene; F15.90 Other stimulant use, unspecified, uncomplicated; F12.90 Cannabis use, unspecified, uncomplicated; G40.909 Epilepsy, unspecified, not intractable, without status epilepticus; J45.909 Unspecified asthma, uncomplicated; F41.9 Anxiety disorder, unspecified; F32.9 Major depressive disorder, single episode, unspecified; I44.4 Left anterior fascicular block; Z20.828 Contact with and (suspected) exposure to other viral communicable diseases; Z90.710 Acquired absence of both cervix and uterus; Z90.722 Acquired absence of ovaries, bilateral
CPT/HCPCS: 36415; 71045; 74177; 80053; 80061; 80306; 81000; 83615; 83690; 83735; 83874; 84145; 84484; 85025; 85379; 85610; 85652; 85730; 86141; 87081; 87101; 87635; 93005; 93041; 94760; 96361; 96374; 96375

== ENCOUNTER 2019-12-11 14:03 | Emergency (ER) | payer SELFPAY ==
[~2019-12-11] VITALS: Ht 167 cm; Wt 81.8 kg
[~2019-12-11 14:03] MED LIST changes: +AMLO5TAB4 PO; +ASPI-789 PO; +DOXE100C4 PO; +FAMO20TA3 PO; +HYDR-83 PO; +PANT40TA2 PO; +POTA10CA43 PO
[2019-12-11] MEDS ORDERED: NS IV 1000 ML 1,000 ML IV SCH (14:15)
[2019-12-11] MEDS ORDERED: diphenhydrAMINE 50 MG/ML INJ (BENADRYL) IVP ONE (14:15)
[2019-12-11] MEDS ORDERED: HALOPERIDOL 5 MG/ML (HALDOL) VIAL IV ONE (14:15)
[2019-12-11 14:25] LABS: BASOPHILS % (AUTO) 0 % (0-10); EOSINOPHILS % (AUTO) 0 % (0-10); HEMATOCRIT 42 % (35-52); HEMOGLOBIN 13.6 G/DL (11.5-16.0); LYMPHOCYTES # (AUTO) 2.9 X 10^3 (1.0-4.0); LYMPHOCYTES % (AUTO) 21 % (12-44); MEAN CORPUSCULAR HEMOGLOBIN 28 PG (25-34); MEAN CORPUSCULAR HGB CONC 32 G/DL (32-36); MEAN CORPUSCULAR VOLUME 88 FL (80-99); MEAN PLATELET VOLUME 9.7 FL (7.4-10.4); MONOCYTES # (AUTO) 1.2 X 10^3 (0.0-1.0); MONOCYTES % (AUTO) 9 % (0-12); NEUTROPHILS # (AUTO) 9.9 X 10^3 (1.8-7.8); NEUTROPHILS % (AUTO) 71 % (42-75); PLATELET COUNT 394 10^3/uL (130-400); RED CELL DISTRIBUTION WIDTH 15.2 % (10.0-14.5)
--- NOTE | 2019-12-11 14:26 | ED General ---
General Stated Complaint: N/V Source of Information: Patient Exam Limitations: No Limitations History of Present Illness Date Seen by Provider: Dec 11, 2019 Time Seen by Provider: 14:24 Initial Comments To ER with recurrent nausea vomiting abdominal pain that started last night. She states that hot showers help. She has a long history of recurrent nausea v omiting and abdominal pain. Long history of marijuana use. Timing/Duration: 2-3 Days Severity: Moderate Associated Systoms: Headaches, Nausea/Vomiting Allergies and Home Medications Allergies Coded Allergies: morphine (Verified Allergy, Unknown, CAUSES "REBOUND HEADACHES", 08/20/13) baclofen (Verified Adverse Reaction, Severe, 06/13/15) PATIENT UNAWARE OF REACTION BUT WAS HOSPITALIZED AFTER TAKING MEDICATION AND WAS TOLD IT WAS A REACTION DUE TO THE MEDICATION SHE TOOK. meloxicam (Verified Adverse Reaction, Severe, 06/13/15) PATIENT UNAWARE OF REACTION BUT WAS HOSPITALIZED AFTER TAKING MEDICATION AND WAS TOLD IT WAS A REACTION DUE TO THE MEDICATION SHE TOOK. NSAIDS (Non-Steroidal Anti-Inflamma (Verified Adverse Reaction, Mild, have IBS and avoid NSAIDS, 12/04/12) Home Medications Amlodipine Besylate 5 Mg Tablet, 5 MG PO DAILY Prescribed by: JOSE RUIZ on 11/19/19 1011 Aspirin/Acetaminophen/Caffeine 1 Each Tablet, 2 EACH PO Q6-8HR PRN for Headache, (Reported) Dicyclomine HCl 20 Mg Tablet, 20 MG PO QID, (Reported) Doxepin HCl 100 Mg Capsule, 100 MG PO HS, (Reported) LAST FILLED 09-23-2019 #30 Famotidine 20 Mg Tablet, 40 MG PO HS, (Reported) TAKES 2 (20MG) TABS Hydrocodone/Acetaminophen 1 Each Tablet, 1 EACH PO Q6H Prescribed by: JOSE RUIZ on 11/19/19 1011 Ondansetron 4 Mg Tab.rapdis, 4 MG PO TID PRN for NAUSEA-1ST LINE, (Reported) Pantoprazole Sodium 40 Mg Tablet.dr, 40 MG PO DAILY Prescribed by: JOSE RUIZ on 11/19/19 1011 Potassium Chloride 10 Meq Capsule.er, 10 MEQ PO TID, (Reported) Sucralfate 1 Gm Tablet, 1 GM PO ACHS Prescribed by: JOSE RUIZ on 11/19/19 1011 Tizanidine HCl 4 Mg Tablet, 4 MG PO BID PRN for MUSCLE SPASMS, (Reported) Patient Home Medication List Home Medication List Reviewed: Yes Review of Systems Review of Systems Constitutional: see HPI EENTM: see HPI Respiratory: no symptoms reported Cardiovascular: no symptoms reported Gastrointestinal: abdominal pain, nausea, vomiting Genitourinary: no symptoms reported Musculoskeletal: no symptoms reported Skin: no symptoms reported Psychiatric/Neurological: See HPI, Headache Past [id number] Hx Patient Social History Drug of Choice: Marijuana every other day 2nd Hand Smoke Exposure: No Recent Foreign Travel: No Contact w/Someone Who Travel: No Recent Hopitalizations: No Immunizations Up To Date Tetanus Booster (TDap): More than 5yrs PED Vaccines UTD: No Date of Pneumonia Vaccine: Mar 03, 2014 Date of Influenza Vaccine: Mar 03, 2015 Seasonal Allergies Seasonal Allergies: No Past Medical History Surgeries: Yes Bladder Surgery, Gallbladder, 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, Oophorectomy, Tubal Ligation Respiratory: Yes Asthma Currently Using CPAP: No Currently Using BIPAP: No Cardiac: No Neurological: Yes ("SEIZURE WITH LOW BP" PER PT) Headaches /Migraines, Seizure Disorder 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 Disorders: Yes (HYST 2005--NO PHYSICIAN DOCUMENTATION OF ANY KIND OF CANCER) 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 Sexually Transmitted Disease: Yes (HPV) HIV/AIDS: No Genitourinary: Yes Bladder Infection Gastrointestinal: Yes Gastroesophageal Reflux, Irritable Bowel Musculoskeletal: Yes Chronic Back Pain Endocrine: No HEENT: Yes (POOR DENTITION) Loss of Vision: Denies Cancer: No (NO PHYSICIAN DOCUMENTATION / VERIFICATION OF ANY KIND OF CANCER) Cervical, Colon Psychosocial: Yes (MARIJUANA USE EVERY OTHER DAY ) Anxiety, Depression Integumentary: No Blood Disorders: No Adverse Reaction/Blood Tranf: No Family Medical History Diabetes mellitus 19 FATHER FHx: brain tumor 19 MOTHER HPV infection G8 SISTER No Family History of: AIDS Abdominal aortic aneurysm [place]'s disease Alcoholism Alzheimer's disease Aphasia Arthritis Asthma Cancer of mouth Cardiovascular disease Cataracts Colon cancer Completed stroke Congenital disease Congenital heart disease Coronary thrombosis Cystic fibrosis Deafness or hearing loss Dementia Drug abuse Dysphasia Fibrocystic disease of breast Gastroenteritis Glaucoma Headache disorder Hypercholesterolemia Hypertension Infertility Kidney disease Myocardial infarction Neoplasm Not obtainable due to adoption Osteoporosis Parkinson's disease Prostate cancer Psychosocial problem Respiratory disorder Seizure disorder Severe allergy Thyroid disease Tuberculosis Visual disorder Heart Disease, Hypertension, Other Conditions/Hx Physical Exam Vital Signs Vital Signs - First Documented 12/11/19 14:05 Temp 36.7 Pulse 95 Resp 16 B/P (MAP) 176/115 (135) Pulse Ox 99 Capillary Refill : Height, Weight, BMI Height: 5'6.00" Weight: 203lbs. 6.4oz. [id number]; 28.31 BMI Method:Stated General Appearance: No Apparent Distress, WD/WN Eyes: Bilateral Eye Normal Inspection, Bilateral Eye PERRL, Bilateral Eye EOMI HEENT: PERRL/EOMI, TMs Normal Neck: Full Range of Motion, Normal Inspection Respiratory: No Accessory Muscle Use, No Respiratory Distress Gastrointestinal: Normal Bowel Sounds, Non Tender, Soft Extremity: Normal Capillary Refill, Normal Inspection Neurologic/Psychiatric: Alert, Oriented x3 Skin: Normal Color, Warm/Dry Progress/Results/Core Measures Suspected Sepsis SIRS Temperature: Pulse: Respiratory Rate: Laboratory Tests 12/11/19 14:14: White Blood Count 14.0H Blood Pressure / Mean: Laboratory Tests 12/11/19 14:14: Creatinine 1.00, Platelet Count 394, Total Bilirubin 0.3 Results/Orders Lab Results Laboratory Tests Test 12/11/19 14:14 12/11/19 15:30 Range/Units White Blood Count 14.0 H 4.3-11.0 10^3/uL Red Blood Count 4.80 4.35-5.85 10^6/uL Hemoglobin 13.6 11.5-16.0 G/DL Hematocrit 42 35-52 % Mean Corpuscular Volume 88 80-99 FL Mean Corpuscular Hemoglobin 28 25-34 PG Mean Corpuscular Hemoglobin Concent 32 32-36 G/DL Red Cell Distribution Width 15.2 H 10.0-14.5 % Platelet Count 394 130-400 10^3/uL Mean Platelet Volume 9.7 7.4-10.4 FL Neutrophils (%) (Auto) 71 42-75 % Lymphocytes (%) (Auto) 21 12-44 % Monocytes (%) (Auto) 9 0-12 % Eosinophils (%) (Auto) 0 0-10 % Basophils (%) (Auto) 0 0-10 % Neutrophils # (Auto) 9.9 H 1.8-7.8 X 10^3 Lymphocytes # (Auto) 2.9 1.0-4.0 X 10^3 Monocytes # (Auto) 1.2 H 0.0-1.0 X 10^3 Eosinophils # (Auto) 0.0 0.0-0.3 10^3/uL Basophils # (Auto) 0.0 0.0-0.1 10^3/uL Neutrophils % (Manual) 68 % Lymphocytes % (Manual) 24 % Monocytes % (Manual) 7 % Eosinophils % (Manual) 0 % Basophils % (Manual) 0 % Band Neutrophils 1 % Anisocytosis SLIGHT Sodium Level 144 135-145 MMOL/L Potassium Level 3.4 L 3.6-5.0 MMOL/L Chloride Level 102 98-107 MMOL/L Carbon Dioxide Level 26 21-32 MMOL/L Anion Gap 16 H 5-14 MMOL/L Blood Urea Nitrogen 9 7-18 MG/DL Creatinine 1.00 0.60-1.30 MG/DL Estimat Glomerular Filtration Rate > 60 BUN/Creatinine Ratio 9 Glucose Level 124 H 70-105 MG/DL Calcium Level 10.3 H 8.5-10.1 MG/DL Corrected Calcium 8.5-10.1 MG/DL Total Bilirubin 0.3 0.1-1.0 MG/DL Aspartate Amino Transf (AST/SGOT) 24 5-34 U/L Alanine Aminotransferase (ALT/SGPT) 46 0-55 U/L Alkaline Phosphatase 80 40-136 U/L Total Protein 8.3 H 6.4-8.2 GM/DL Albumin 4.9 H 3.2-4.5 GM/DL Lipase 53 8-78 U/L Serum Test, Qualitative NEGATIVE NEGATIVE Urine Color YELLOW Urine Clarity CLEAR Urine pH 7.0 5-9 Urine Specific [place] 1.020 1.016-1.022 Urine Protein NEGATIVE NEGATIVE Urine Glucose (UA) NEGATIVE NEGATIVE Urine Ketones NEGATIVE NEGATIVE Urine Nitrite NEGATIVE NEGATIVE Urine Bilirubin NEGATIVE NEGATIVE Urine Urobilinogen 0.2 < = 1.0 MG/DL Urine Leukocyte Esterase NEGATIVE NEGATIVE Urine RBC (Auto) NEGATIVE NEGATIVE Urine RBC RARE /HPF Urine WBC 0-2 /HPF Urine Squamous Epithelial Cells 0-2 /HPF Urine Crystals NONE /LPF Urine Bacteria TRACE /HPF Urine Casts PRESENT /LPF Urine Hyaline Casts 0-2 H /LPF Urine Mucus MODERATE H /LPF Urine Culture Indicated NO Urine Opiates Screen POSITIVE H NEGATIVE Urine Oxycodone Screen NEGATIVE NEGATIVE Urine Methadone Screen NEGATIVE NEGATIVE Urine Propoxyphene Screen NEGATIVE NEGATIVE Urine Barbiturates Screen NEGATIVE NEGATIVE Ur Tricyclic Antidepressants Screen NEGATIVE NEGATIVE Urine Phencyclidine Screen NEGATIVE NEGATIVE Urine Amphetamines Screen NEGATIVE NEGATIVE Urine Methamphetamines Screen NEGATIVE NEGATIVE Urine Benzodiazepines Screen NEGATIVE NEGATIVE Urine Cocaine Screen NEGATIVE NEGATIVE Urine Cannabinoids Screen POSITIVE H NEGATIVE My Orders Orders - FAMILIA ELISE APRN Cbc With Automated Diff (12/11/19 14:09) Comprehensive Metabolic Panel (12/11/19 14:09) Hcg,Qualitative Serum (12/11/19 14:09) Ed Iv/Invasive Line Start (12/11/19 14:09) Lipase (12/11/19 14:09) Drug Screen Stat (Urine) (12/11/19 14:09) Ua Culture If Indicated (12/11/19 14:09) Diphenhydramine Injection (Benadryl Inje (12/11/19 14:15) Ns Iv 1000 Ml (Sodium Chloride 0.9%) (12/11/19 14:15) Haloperidol Injection (Haldol Injectio (12/11/19 14:15) Manual Differential (12/11/19 14:14) Ekg Tracing (12/11/19 14:30) Lorazepam Injection (Ativan Injection) (12/11/19 14:45) Hydralazine Injection (Apresoline Inject (12/11/19 15:30) Ketorolac Injection (Toradol Injection) (12/11/19 15:30) Ct Head Wo (12/11/19 15:31) Medications Given in ED Current Medications Medications Dose Ordered Sig/Judi Route Start Time Stop Time Status Last Admin Dose Admin Diphenhydramine HCl 50 mg ONCE ONCE IVP 12/11/19 14:15 12/11/19 14:16 DC 12/11/19 14:43 50 MG Haloperidol Lactate 5 mg ONCE ONCE IV 12/11/19 14:15 12/11/19 14:16 DC 12/11/19 14:42 5 MG Hydralazine HCl 10 mg ONCE ONCE IV 12/11/19 15:30 12/11/19 15:31 DC 12/11/19 15:37 10 MG Ketorolac Tromethamine 15 mg ONCE ONCE IVP 12/11/19 15:30 12/11/19 15:31 DC 12/11/19 15:36 15 MG Lorazepam 1 mg ONCE ONCE IVP 12/11/19 14:45 12/11/19 14:46 DC 12/11/19 14:43 1 MG Vital Signs/I&O 12/11/19 14:05 Temp 36.7 Pulse 95 Resp 16 B/P (MAP) 176/115 (135) Pulse Ox 99 Capillary Refill : Departure Communication (Admissions) 1527-no longer vomiting, laying in bed, arousable to verbal stimuli. States she is not going to be able to give us a urine sample. Complains of a headache. Blood pressure 197/121. Will discharge to home after normal CT head Impression Primary Impression: Nausea & vomiting Qualified Codes: R11.2 - Nausea with vomiting, unspecified Disposition: HOME, SELF-CARE Condition: Stable Departure-Patient Inst. Decision time for Depature: 15:56 Referrals: [facility] (PCP) Primary Care Physician SCARLET ALVES (Family) Primary Care Physician Patient Instructions: Nausea and Vomiting, Adult Add. Discharge Instructions: youre sick because of a condition called hyperemesis cannabinoid syndrome. It takes years of smoking marijuana to develop and is from a toxicity of marijuana. You will feel better just after smoking it but then the nausea will return with abdominal pain leading to recurrent ER visits for nausea and vomiting. Hot showers help. Also rubbing capsaicin cream (purchased at [facility]) on the abdomen also helps. IN ORDER TO FEEL BETTER YOU MUST STOP THE MARIJUANA----ABSOLUTELY NONE FOR AT LEAST 3 weeks. Scripts Prochlorperazine Maleate (Compazine) 25 Mg Supp.rect 25 MG RC Q8H PRN for NAUSEA/VOMITING, #14 SUPP.RECT Prov: FAMILIA ELISE APRN 12/11/19 FAMILIA ELISE APRN Dec 11, 2019 14:26
[2019-12-11 14:42] LABS: ALBUMIN 4.9 GM/DL (3.2-4.5); CHLORIDE 102 MMOL/L (98-107); POTASSIUM 3.4 MMOL/L (3.6-5.0); SODIUM 144 MMOL/L (135-145)
[2019-12-11 14:43] LABS: CALCIUM 10.3 MG/DL (8.5-10.1)
[2019-12-11 14:44] LABS: GLUCOSE 124 MG/DL (70-105); TOTAL PROTEIN 8.3 GM/DL (6.4-8.2)
[2019-12-11 14:45] LABS: CARBON DIOXIDE 26 MMOL/L (21-32)
[2019-12-11] MEDS ORDERED: LORazepam INJ 2 MG/ML (ATIVAN) VIAL IVP ONE (14:45)
[2019-12-11 14:46] LABS: BILIRUBIN,TOTAL 0.3 MG/DL (0.1-1.0)
[2019-12-11 14:48] LABS: ALKALINE PHOSPHATASE 80 U/L (40-136); GFR ESTIMATED > 60
[2019-12-11 14:49] LABS: BUN/CREATININE RATIO 9; NEUTROPHILS % (MANUAL) 68 %
[2019-12-11 14:50] LABS: ANISOCYTOSIS SLIGHT; BAND NEUTROPHILS 1 %; BASOPHILS % (MANUAL) 0 %; EOSINOPHILS % (MANUAL) 0 %; LYMPHOCYTES % (MANUAL) 24 %; MONOCYTES % (MANUAL) 7 %
[2019-12-11 14:51] LABS: ALANINE AMINOTRANSFERASE 46 U/L (0-55); LIPASE 53 U/L (8-78)
[2019-12-11] MEDS ORDERED: hydrALAZINE (APESOLINE) 20 MG/ML VIAL IV ONE (15:30)
[2019-12-11] MEDS ORDERED: KETOROLAC 30 MG/ML VIAL IVP ONE (15:30)
[2019-12-11 15:39] LABS: BILIRUBIN,URINE NEGATIVE (NEGATIVE); CLARITY,URINE CLEAR; COLOR,URINE YELLOW; GLUCOSE, URINE (UA) NEGATIVE (NEGATIVE); KETONES,URINE NEGATIVE (NEGATIVE); LEUKOCYTE ESTERASE ,URINE NEGATIVE (NEGATIVE); NITRITE,URINE NEGATIVE (NEGATIVE); PROTEIN,URINE NEGATIVE (NEGATIVE)
[2019-12-11 15:49] LABS: BACTERIA,URINE TRACE /HPF; HYALINE CASTS, URINE 0-2 /LPF; RBC,URINE RARE /HPF; SQUAMOUS EPITHELIAL CELL,UR 0-2 /HPF; WBC,URINE 0-2 /HPF
[2019-12-11 15:51] LABS: AMPHETAMINE SCREEN, URINE NEGATIVE (NEGATIVE); BARBITURATE SCREEN URINE NEGATIVE (NEGATIVE); BENZODIAZEPINES SCREEN URINE NEGATIVE (NEGATIVE); CANNABINOID SCREEN, URINE POSITIVE (NEGATIVE); COCAINE SCREEN URINE NEGATIVE (NEGATIVE); METHADONE STAT NEGATIVE (NEGATIVE); METHAMPHETAMINE SCREEN URINE S NEGATIVE (NEGATIVE); OPIATE SCREEN URINE POSITIVE (NEGATIVE); OXYCODONE STAT NEGATIVE (NEGATIVE); PROPOXYPHENE STAT NEGATIVE (NEGATIVE); TRICYCLIC ANTIDEPRESSANTS SCRE NEGATIVE (NEGATIVE)
--- NOTE | 2019-12-11 15:59 | Diagnostic Imaging Report ---
PROCEDURE: CT head without contrast. TECHNIQUE: Multiple contiguous axial images were obtained through the brain without the use of intravenous contrast. Auto Exposure Controls were utilized during the CT exam to meet ALARA standards for radiation dose reduction. INDICATION: Headache with nausea and vomiting. COMPARISON: Made with prior head CT from 03/04/2019. FINDINGS: The ventricles and sulci are within normal limits. No sulcal effacement or midline shift is identified. No acute intra-axial or extra-axial hemorrhage is detected. Cisterns are patent. Visualized paranasal sinuses are clear. IMPRESSION: No acute intracranial process is detected. Dictated by: Dictated on workstation # [id number]
[2019-12-11] MEDS ORDERED: PROC25SU27 RC (16:00)
[2019-12-11 16:16] VITALS: BP 167/94
--- OUTSIDE RECORDS SUMMARY | 2019-12-11 17:56 | XMS REPORT ---
Author Author Maggy Ballesteros Doctor Organization [facility] Address Unknown Phone Unavailable Care Team Providers Care Spray I Painter Name Role Phone Migration, Doctor Unavailable Unavailable PROBLEMS Type Condition ICD9-CM Code [id number] Code Onset Dates Condition S tatus SNOMED Code Problem Abnormal glucose R73.09 Active 102 519534 Problem Hyperlipidemia LDL goal <100 E78.5 A ctive 77106838 Problem Elevated liver enzymes R74.8 Active 956115366 Problem Tremor, hereditary, benign G25.0 Act caitlin [id number] Problem Major depressive disorder, recurrent episode, moderate F33.1 Active 123989211 Problem Reflux gastritis K29.60 Active 729 07401 Problem Other chronic pain G89.29 Active 8 4243499 Problem Constipation by delayed colonic transit K59.01 Active 38826847 Problem Essential hypertension I10 Active 14493104 Problem Seizure disorder G40.909 Active 128 295855 Problem Other chronic pain G89.29 Active 8 8506563 Problem Moderate persistent asthma without complication J4 5.40 Active 440011939 Problem Primary insomnia F51.01 Active 397 2004 Problem Intractable chronic migraine without aura and wi th status migrainosus G43.711 Active 913096281 Problem Moderate persistent asthma with exacerbation J45.4 1 Active 253243159 Problem Irritable bowel syndrome with constipation K58.1 Active 584737357 Problem Lumbago with sciatica, left side M54.42 Active 392802773 Problem Lumbago with sciatica, right side M54.41 Active 084766294886146 Problem History of hypokalemia Z86.39 Active 138060430 Problem Chronic migraine without aura with statu s migrainosus, not intractable G43.701 Active 198578728 Problem Chronic fatigue R53.82 Active 8422 9001 Problem Irritable bowel K58.9 Active 1074 3008 Problem Hypokalemia E87.6 Active 34572321 Problem Mood disorder F39 Active 912026 05 Problem RLS (restless legs syndrome) G25.81 A ctive 04234188 Problem Aneurysm I72.9 Active 81034920 Problem Migraine with aura and without status migrainosu s, not intractable G43.109 Active 2511141 ALLERGIES No Information ENCOUNTERS Encounter Location Date Diagnosis [place] [address] [address] 07 Dec, 2019 Other chronic pain G89.29 an d Pain in right shoulder M25.511 [place] [address] [address] Dec, [place] [address] [address] 26 Nov, 2019 Other chronic pain G89.29 [place] [address] [address] 08 Nov, 2019 Seizure disorder G40.909 and Hypokalemia E87.6 [place] [address] [address] 05 Nov, 2019 Electrolyte imbalance E87.8 [place] [address] [address] Nov, Electrolyte imbalance E87.8 [place] [address] [address] October, Diarrhea, unspecified R19.7 ; Nausea with vomiting, unspecified R11.2 and Chronic fatigue R53.82 [place] [address] [address] October, [place] [address] [address] October, Seizure disorder G40.909 and Tremor, hereditary, benign G25.0 [place] [address] [address] Sep, Primary insomnia F51.01 ; Ot her chronic pain G89.29 and Pain in right shoulder M25.511 [place] [address] [address] 08 Sep, 2019 Bilious vomiting with nausea R11.14 [facility] [address] [address] 07 Aug, 2019 Influenza A J10.1 [place] [address] [place] [id number] [place] [address] Aug, [place] [address] [address] Aug, Tinea pedis of both feet B35 .3 and Migraine with aura and without status migrainosus, not intractable G43.109 [place] [address] [address] 21 Jul, 2019 [facility] [address] [place] [id number] [place] [address] 19 Jul, 2019 Rib pain on left side R07.81 [place] [address] [address] 10 Jul, 2019 Seizure disorder G40.909 and Aneurysm I72.9 [place] [address] [address] 07 Jul, 2019 [place] [address] [place] [id number] [place] [address] 06 Jul, 2019 Seizure disorder G40.909 ; A neurysm I72.9 ; Migraine with aura and without status migrainosus, not intractable G43.109 and History of hypokalemia Z86.39 [place] [id number] [place] [address] 04 Jul, 2019 [place] [address] [place] [id number] [place] [address] Jun, [place] [address] [place] [id number] [place] [address] Jun, Seizures R56.9 ; Migraine wi th aura and without status migrainosus, not intractable G43.109 ; Other chronic pain G89.29 and Pain in right shoulder M25.511 [facility] [address] [id number] [address] [place] [address] Jun, [facility] [address] [id number] [address] [place] [address] May, Primary insomnia F51.01 ; In tractable chronic migraine without aura and with status migrainosus G43.711 and Aneurysm I72.9 [facility] [address] [id number] [address] [place] [address] Apr, RLS (restless legs syndrome) G25.81 and Mood disorder F39 [facility] [address] [id number] [address] [place] [address] Apr, [facility] [address] [id number] [address] [place] [address] Mar, Other chronic pain G89.29 an d Pain in right shoulder M25.511 [facility] [address] [id number] [address] [place] [address] Mar, Acute left ankle pain M25.57 2 [facility] [address] [id number] [address] [place] [address] Mar, [facility] [address] [id number] [address] [place] [address] Mar, Acute left ankle pain M25.57 2 [facility] [address] [id number] [address] [place] [address] Mar, Major depressive disorder, r ecurrent episode, moderate F33.1 [facility] [address] [id number] [address] [place] [address] Mar, Major depressive disorder, r ecurrent episode, moderate F33.1 ; Lumbago with sciatica, left side M54.42 and Lumbago with sciatica, right side M54.41 [facility] [address] [id number] [address] [place] [address] Mar, [facility] [address] [place] [id number] [place] [address] Mar, [place] [address] [place] [id number] [place] [address] Mar, Major depressive disorder, r ecurrent episode, moderate F33.1 ; Lumbago with sciatica, left side M54.42 and Lumbago with sciatica, right side M54.41 [place] [address] [place] [id number] [place] [address] Feb, Viral gastroenteritis A08.4 [facility] [address] [place] [id number] [place] [address] Feb, Nausea and vomiting, intract ability of vomiting not specified, unspecified vomiting type R11.2 [place] [address] [address] Feb, [place] [address] [place] [id number] [place] [address] Feb, [place] [address] [address] Feb, C. difficile colitis A04.72 ; Mood disorder F39 ; Lumbago with sciatica, left side M54.42 ; Lumbago with sciatica, right side M54.41 and Other chronic pain G89.29 [place] [address] [place] [id number] [place] [address] Jan, [facility] [address] [place] [id number] [place] [address] Jan, Nausea & vomiting R11.2 [place] [address] [place] [id number] [place] [address] Dec, Irritable bowel syndrome wit h constipation K58.1 ; Other chronic pain G89.29 and Pain in right shoulder M25.511 [facility] [address] [place] [id number] [place] [address] Dec, Generalized abdominal pain R 10.84 and Nausea and vomiting, intractability of vomiting not specified, unspecified vomiting type R11.2 [facility] [address] [address] Dec, [facility] [address] [address] Dec, Dysuria R30.0 and Irritable bowel K58.9 [facility] [address] [place] [id number] [place] [phone] Sep, Chronic nausea R11.0 [place] [address] [address] Sep, [place] [address] [address] Sep, Viral gastroenteritis A08.4 [facility] [address] [address] Aug, Headache R51 ; Viral upper r espiratory tract infection J06.9 and Nausea R11.0 [facility] [address] [address] Jun, Reflux gastritis K29.60 [place] [address] [address] Jun, [place] [address] [address] May, [place] [address] [address] May, [place] [address] [address] Apr, Bowel habit changes R19.4 an d Acute cystitis without hematuria N30.00 [place] [address] [address] Apr, Pain in right shoulder M25.5 11 [facility] [address] [id number] [address] [place] [address] Apr, [facility] [address] [id number] [address] [place] [address] Mar, [facility] [address] [id number] [address] [place] [address] Mar, [facility] [address] [id number] [address] [place] [address] Mar, [facility] [address] [id number] [address] [place] [address] Mar, [facility] [address] [id number] [address] [place] [address] Feb, [facility] [address] [id number] [address] [place] [address] Feb, [facility] [address] [id number] [address] [place] [address] Feb, [facility] [address] [id number] [address] [place] [address] Jan, [facility] [address] [id number] [address] [place] [address] Dec, [facility] [address] [id number] [address] [place] [address] Dec, Other chronic pain G89.29 ; Pain in right shoulder M25.511 and Liver enzyme elevation R74.8 [facility] [address] [id number] [address] [place] [address] Nov, Other chronic pain G89.29 an d Pain in right shoulder M25.511 [facility] [address] [id number] [address] [place] [address] October, [facility] [address] [id number] [address] [place] [address] October, Right shoulder pain, unspeci fied chronicity M25.511 [facility] [address] [facility] [id number] [address] [place] [address] Aug, Elevated liver enzymes R74.8 and Hyperlipidemia LDL goal <100 E78.5 [facility] [address] [place] [id number] [place] [address] Aug, [facility] [address] [place] [id number] [place] [address] Jul, [facility] [address] [place] [id number] [place] [address] Jul, Intractable chronic migraine without aura and with status migrainosus G43.711 ; Fever, unspecified fever cause R50.9 and Elevated liver enzymes R74.8 [facility] [address] [place] [id number] [place] [address] Jun, Difficulty urinating R39.198 and Moderate persistent asthma with exacerbation J45.41 [facility] [address] [place] [id number] [place] [address] Jun, [facility] [address] [place] [id number] [place] [address] Jun, Moderate persistent asthma w ith exacerbation J45.41 [facility] [address] [place] [id number] [place] [address] May, Elevated liver enzymes R74.8 and Hyperlipidemia LDL goal <100 E78.5 [facility] [address] [facility] [id number] [address] [place] [address] May, Elevated lipids E78.5 [facility] [address] [place] [id number] [place] [address] Apr, Elevated liver enzymes R74.8 [facility] [address] [place] [id number] [place] [address] Apr, Elevated liver enzymes R74.8 [facility] [address] [place] [id number] [place] [address] Apr, Superior glenoid labrum lesi on of right shoulder, subsequent encounter S43.431D [facility] [address] [place] [id number] [place] [address] Apr, Hypokalemia E87.6 ; Major de pressive disorder, recurrent episode, moderate F33.1 ; Other abnormalities of breathing R06.89 and Dyspnea, unspecified R06.00 [facility] [address] [place] [id number] [place] [address] Mar, Moderate persistent asthma w [facility] complication J45.40 [place] [address] [address] Mar, Impingement syndrome of righ t shoulder M75.41 [place] [address] [address] Jan, [place] [address] [address] Jan, Chronic migraine without aur a with status migrainosus, not intractable G43.701 ; Essential hypertension I10 ; Irritable bowel K58.9 ; Primary insomnia F51.01 and Hypokalemia E87.6 [place] [address] [place] [id number] [place] [address] Dec, [place] [address] [address] Dec, Pain in right shoulder M25.5 11 [place] [address] [place] [id number] [place] [address] Dec, Essential hypertension I10 [place] [address] [place] [id number] [place] [address] Dec, [place] [address] [address] Nov, Essential hypertension I10 [place] [address] [place] [id number] [place] [address] 14 Nov, 2016 Pain in right shoulder M25.5 11 [facility] [address] [id number] [address] [place] [address] 13 Nov, 2016 Pain in right shoulder M25.5 11 [facility] [address] [id number] [address] [place] [address] October, [facility] [address] [id number] [address] [place] [address] October, Pain in right shoulder M25.5 11 [facility] [address] [id number] [address] [place] [address] Sep, Arm pain, right M79.601 [facility] [address] [id number] [address] [place] [address] Sep, [facility] [address] [id number] [address] [place] [address] Sep, Abnormal glucose R73.09 and Elevated lipids E78.5 [place] [address] [id number] [address] [place] [address] Sep, Abnormal glucose R73.09 and Elevated lipids E78.5 [place] [address] [facility] [id number] [address] [place] [address] Aug, [facility] [address] [facility] [id number] [address] [place] [address] Aug, [facility] [address] [id number] [address] [place] [address] Aug, [facility] [address] [facility] [id number] [address] [place] [address] Aug, Constipation by delayed colo reny transit K59.01 ; Hypokalemia E87.6 ; Irritable bowel K58.9 ; Essential hypertension I10 ; Pain in right shoulder M25.511 ; Seizure disorder G40.909 and Screening for lipid disorders Z13.220 [place] [address] [place] [id number] [place] [address] 28 Jul, 2016 Other chronic pain G89.29 an d Pain in right shoulder M25.511 [place] [address] [place] [id number] [place] [address] 14 Jul, 2016 Biceps muscle strain, right, subsequent encounter S46.111D [facility] [place] [address] [address] 08 Jul, 2016 Arm pain, right M79.601 [place] [address] [address] Jun, [place] [address] [address] Jun, Acute non-recurrent frontal sinusitis J01.10 [place] [address] [address] May, Generalized abdominal pain R 10.84 ; Urinary tract infection without hematuria, site unspecified N39.0 ; Hypokalemia E87.6 ; Essential hypertension I10 ; Screening for lipid disorders Z13.220 ; Seizure R56.9 and Low back pain M54.5 [place] [address] [place] [id number] [place] [address] Apr, [facility] [place] [address] [place] [id number] [place] [address] Feb, [place] [address] [place] [id number] [place] [address] Jan, [place] [address] [address] Dec, Constipation by delayed colo reny transit K59.01 ; Hypokalemia E87.6 ; Irritable bowel K58.9 and Nausea R11.0 [facility] [address] [place] [id number] [place] [address] Dec, Generalized abdominal pain R 10.84 [facility] [address] [place] [id number] [address] [place] [address] Nov, [facility] [address] [address] Aug, Acute bronchitis J20.9 [facility] [address] [address] Aug, [place] [address] [address] Aug, Low back pain M54.5 ; Hypoka lemia E87.6 ; Chronic migraine without aura with status migrainosus, not intractable G43.701 ; Tremor, hereditary, benign G25.0 ; Irritable bowel K58.9 ; Essential hypertension I10 and Seizure R56.9 [place] [address] [address] Aug, [place] [address] [address] Jul, [place] [address] [address] 03 Jul, 2015 Low back pain M54.5 ; Hypoka lemia E87.6 ; Chronic migraine without aura with status migrainosus, not intractable G43.701 ; Tremor, hereditary, benign G25.0 ; Irritable bowel K58.9 ; Essential hypertension I10 and Seizure R56.9 [place] [address] [address] Jun, Hypokalemia E87.6 [place] [address] [address] Jun, ADD (attention deficit disor dionicio) without hyperactivity F90.0 ; Generalized anxiety disorder F41.1 and Major depressive disorder, recurrent episode, moderate F33.1 [place] [address] [address] Jun, Low back pain M54.5 ; Hypoka lemia E87.6 ; Chronic migraine without aura with status migrainosus, not intractable G43.701 ; Tremor, hereditary, benign G25.0 ; Irritable bowel K58.9 ; Essential hypertension I10 and Seizure R56.9 [place] [address] [place] [id number] [place] [address] Jun, [place] [address] [address] May, [place] [address] [address] May, Low back pain M54.5 ; Hypoka lemia E87.6 ; Chronic migraine without aura with status migrainosus, not intractable G43.701 ; Tremor, hereditary, benign G25.0 ; Irritable bowel K58.9 ; Essential hypertension I10 ; Seizure R56.9 and Tinea capitis B35.0 [place] [address] [place] [id number] [place] [address] 17 May, 2015 Low back pain M54.5 ; Hypoka lemia E87.6 ; Chronic migraine without aura with status migrainosus, not intractable G43.701 ; Tremor, hereditary, benign G25.0 ; Irritable bowel K58.9 ; Essential hypertension I10 ; Seizure R56.9 ; Otitis media, left H66.92 and Dysuria 788.1 [place] [address] [place] [id number] [place] [address] May, Tooth pain K08.8 [place] [address] [address] May, [place] [address] [address] May, Low back pain M54.5 ; Hypoka lemia E87.6 ; Chronic migraine without aura with status migrainosus, not intractable G43.701 ; Tremor, hereditary, benign G25.0 ; Irritable bowel K58.9 and Essential hypertension I10 [facility] [address] [place] [id number] [place] [address] Apr, Low back pain M54.5 ; Hypoka lemia E87.6 ; Chronic migraine without aura with status migrainosus, not intractable G43.701 ; Tremor, hereditary, benign G25.0 and Irritable bowel K58.9 [facility] [address] [place] [id number] [place] [address] 05 Apr, 2015 Low back pain M54.5 [facility] [address] [place] [id number] [place] [address] Mar, [place] [address] [address] Mar, Irritable bowel syndrome wit h diarrhea K58.0 [place] [address] [address] Mar, [facility] [address] [place] [id number] [place] [address] Feb, [place] [address] [address] 08 Feb, 2015 [facility] [address] [address] 03 Feb, 2015 Irritable bowel syndrome 564 .1 ; Lumbago 724.2 and Cervical pain (neck) 723.1 [facility] [address] [place] [id number] [place] [address] Dec, Major depressive disorder, r ecurrent episode, moderate 296.32 and Generalized anxiety disorder 300.02 [facility] [id number] [place] [id number] Nov, [facility] [id number] [place] [id number] Nov, Major depressive disorder, r ecurrent episode, moderate 296.32 [place] [address] [place] [id number] [place] [id number] Nov, Constipation 564.00 ; Nausea & vomiting 787.01 and Abdominal pain 789.00 [facility] [address] [id number] [address] [place] [id number] Nov, [facility] [address] [id number] [address] [place] [id number] October, [facility] [address] [id number] [address] [place] [id number] October, [facility] [address] [id number] [address] [place] [id number] October, [facility] [address] [id number] [address] [place] [id number] October, [facility] [address] [id number] [address] [place] [id number] Sep, Dysuria 788.1 [facility] [address] [id number] [address] [place] [id number] Sep, [facility] [address] [id number] [address] [place] [id number] Sep, [facility] [address] [id number] [address] [place] [id number] Sep, [facility] [address] [id number] [address] [place] [id number] Sep, [facility] [address] [id number] [address] [place] [id number] Aug, [facility] [address] [id number] [address] [place] [id number] Aug, [facility] [address] [id number] [address] [place] [id number] Aug, [facility] [address] [id number] [address] [place] [id number] Aug, [facility] [address] [id number] [address] [place] [address], [place] [id number] 18 Aug, 2014 [facility] [address] [id number] [address] [place] [address], [place] [id number] 18 Aug, 2014 [facility] [address] [id number] [address] [place] [address], [place] [id number] Aug, [facility] [address] [id number] [address] [place] [address], [place] [id number] Aug, [facility] [address] [id number] [address] [place] [address], [place] [address] Aug, [facility] [address] [id number] [address] [place] [address], [place] [address] Aug, [facility] [address] [id number] [address] [place] [address], [place] [address] Jun, [facility] [address] [id number] [address] [place] [address], [place] [address] Jun, [facility] [address] [id number] [address] [place] [address], [place] [address] Jun, [facility] [address] [id number] [address] [place] [address], [place] [address] Jun, [facility] [address] [id number] [address] [place] [address], [place] [address] May, [facility] [address] [id number] [address] [place] [address], [place] [address] May, [facility] [address] [id number] [address] [place] [address], [place] [address] May, [facility] [address] [id number] [address] [place] [address], [place] [address] May, [facility] [address] [id number] [address] [place] [address], [place] [address] May, [facility] [address] [id number] [address] [place] [address], [place] [address] May, [facility] [address] [id number] [address] [place] [address], [place] [address] May, [facility] [address] [id number] [address] [place] [address], [place] [address] May, [facility] [address] [id number] [address] [place] [address], [place] [address] Mar, [facility] [address] [id number] [address] [place] [address], [place] [address] Mar, [facility] [address] [id number] [address] [place] [address], [place] [address] Mar, [facility] [address] [id number] [address] [place] [address], [place] [address] Mar, [facility] [address] [id number] [address] [place] [address], [place] [address] Mar, [facility] [address] [id number] [address] [place] [address], [place] [address] Mar, [facility] [address] [id number] [address] [place] [address], [place] [address] Mar, [facility] [address] [id number] [address] [place] [address], [place] [address] Mar, [facility] [address] [id number] [address] [place] [address], [place] [address] Mar, [facility] [address] [id number] [address] [place] [address] Mar, [facility] [address] [id number] [address] [place] [address], [place] [address] Mar, [facility] [address] [id number] [address] [place] [address], [place] [address] Mar, [facility] [address] [id number] [address] [place] [address], [place] [address] Feb, [facility] [address] [id number] [facility] [place] [address] 24 Feb, 2014 [facility] [address] [id number] [facility] [place] [address] Feb, [facility] [address] [id number] [facility] [place] [address] Feb, [facility] [address] [id number] [address] [place] [address], [place] [address] Feb, [facility] [address] [id number] [address] [place] [address], [place] [address] Feb, [facility] [address] [id number] [address] [place] [address], [place] [address] Jan, [facility] [address] [id number] [address] [place] [address], [place] [address] Jan, [facility] [address] [id number] [address] [place] [address], [place] [address] Jan, [facility] [address] [id number] [address] [place] [address], [place] [address] Jan, [facility] [address] [id number] [address] [place] [address], [place] [address] Jan, [facility] [address] [id number] [address] [place] [address], [place] [address] Jan, [facility] [address] [id number] [address] [place] [address], [place] [address] Jan, [facility] [address] [id number] [address] [place] [address], [place] [address] Jan, [facility] [address] [id number] [address] [place] [address], [place] [address] Dec, [facility] [address] [id number] [address] [place] [address], [place] [address] Dec, [facility] [address] [id number] [address] [place] [address], [place] [address] Dec, [facility] [address] [id number] [address] [place] [address], [place] [address] Dec, [facility] [address] [id number] [address] [place] [address], [place] [address] Dec, [facility] [address] [id number] [address] [place] [address], [place] [address] Dec, [facility] [address] [id number] [address] [place] [address], [place] [address] Dec, [facility] [address] [id number] [address] [place] [address], [place] [address] Dec, [facility] [address] [id number] [address] [place] [address], [place] [address] October, [facility] [address] [id number] [address] [place] [address], [place] [address] October, [facility] [address] [id number] [address] [place] [address], [place] [address] Sep, [facility] [address] [id number] [address] [place] [address], [place] [address] Sep, [facility] [address] [id number] [address] [place] [address], [place] [address] Sep, [facility] [address] [id number] [address] [place] [address], [place] [address] Sep, [facility] [address] [id number] [address] [place] [address], [place] [address] Sep, [facility] [address] [id number] [address] [place] [address], [place] [address] Sep, [facility] [address] [id number] [address] [place] [address], [place] [address] Sep, [facility] [address] [id number] [address] [place] [address], [place] [address] Sep, [facility] [address] [id number] [address] [place] [address], [place] [address] Sep, [facility] [address] [id number] [address] [place] [address], [place] [address] Sep, [facility] [address] [id number] [address] [place] [address], [place] [address] Sep, [facility] [address] [id number] [address] [place] [address], [place] [address] Sep, [facility] [address] [id number] [address] [place] [address], [place] [address] Aug, [facility] [address] [id number] [address] [place] [address], [place] [address] Aug, [facility] [address] [id number] [address] [place] [address], [place] [address] Aug, [facility] [address] [id number] [address] [place] [address], [place] [address] Jun, [facility] [address] [id number] [address] [place] [address], [place] [address] Jun, [facility] [address] [id number] [address] [place] [address], [place] [address] Jun, [facility] [address] [id number] [address] [place] [address], [place] [address] Jun, [facility] [address] [id number] [address] [place] [address], [place] [address] Jun, [facility] [address] [id number] [address] [place] [address], [place] [address] Jun, [facility] [address] [id number] [address] [place] [address], [place] [address] Jun, [facility] [address] [id number] [address] [place] [address], [place] [address] Jun, [facility] [address] [id number] [address] [place] [address], [place] [address] Jun, [facility] [address] [id number] [address] [place] [address], [place] [address] Jun, [facility] [address] [id number] [address] [place] [address], [place] [address] May, [facility] [address] [id number] [address] [place] [address], [place] [address] May, [facility] [address] [id number] [address] [place] [address], [place] [address] May, [facility] [address] [id number] [address] [place] [address], [place] [address] May, [facility] [address] [id number] [address] [place] [address], [place] [address] Apr, [facility] [address] [id number] [address] [place] [address], [place] [address] Apr, [facility] [address] [id number] [address] [place] [address], [place] [address] Apr, [facility] [address] [id number] [address] [place] [address], [place] [address] Apr, [facility] [address] [id number] [address] [place] [address], [place] [address] Apr, [facility] [address] [id number] [address] [place] [address], [place] [address] Apr, [facility] [address] [id number] [address] [place] [address], [place] [address] Apr, [facility] [address] [id number] [address] [place] [address], [place] [address] Apr, [facility] [address] [id number] [address] [place] [address], [place] [address] Mar, [facility] [address] [id number] [address] [place] [address], [place] [address] Mar, [facility] [address] [id number] [address] [place] [address], [place] [address] Mar, [facility] [address] [id number] [address] [place] [address], [place] [address] Mar, [facility] [address] [id number] [address] [place] [address], [place] [address] Mar, [facility] [address] [id number] [address] [place] [address], [place] [address] Feb, [facility] [address] [id number] [address] [place] [address], [place] [address] Feb, [facility] [address] [id number] [address] [place] [address], [place] [address] Feb, [facility] [address] [id number] [address] [place] [address], [place] [address] Feb, [facility] [address] [id number] [address] [place] [address], [place] [address] Feb, [facility] [address] [id number] [address] [place] [address], [place] [address] Jan, [facility] [address] [id number] [address] [place] [address], [place] [address] Jan, [facility] [address] [id number] [address] [place] [address], [place] [address] Nov, [facility] [address] [id number] [address] [place] [address], [place] [address] Nov, [facility] [address] [id number] [address] [place] [address] Nov, [facility] [address] [id number] [address] [place] [address], [place] [address] Nov, [facility] [address] [id number] [address] [place] [address], [place] [address] October, [facility] [address] [id number] [address] [place] [address], [place] [address] Sep, [facility] [address] [id number] [address] [place] [address], [place] [address] Aug, [facility] [address] [id number] [address] [place] [address], [place] [address] Aug, [facility] [address] [id number] [address] [place] [address], [place] [address] Aug, [facility] [address] [id number] [address] [place] [address], [place] [address] Aug, [facility] [address] [id number] [address] [place] [address], [place] [address] Jul, [facility] [address] [id number] [address] [place] [address], [place] [address] Jun, [facility] [address] [id number] [address] [place] [address], [place] [address] Jun, [facility] [address] [id number] [address] [place] [address], [place] [address] May, [facility] [address] [id number] [address] [place] [address], [place] [address] May, [facility] [address] [id number] [address] [place] [address], [place] [id number] Mar, [facility] [address] [id number] [address] [place] [address], [place] [address] Mar, [facility] [address] [id number] [address] [place] [address], [place] [address] Mar, [facility] [address] [id number] [address] [place] [address], [place] [address] Mar, [facility] [address] [id number] [address] [place] [address], [place] [address] Mar, [facility] [address] [id number] [address] [place] [address], [place] [address] Mar, [facility] [address] [id number] [address] [place] [address], [place] [address] Mar, [facility] [address] [id number] [address] [place] [address], [place] [address] 23 Mar, 2011 [facility] [address] [id number] [address] [place] [address], [place] [address] 22 Mar, 2011 [facility] [address] [id number] [address] [place] [address], [place] [address] 20 Mar, 2011 [facility] [address] [id number] [address] [place] [address], [place] [address] 20 Mar, 2011 [facility] [address] [id number] [address] [place] [address], [place] [address] 17 Mar, 2011 [facility] [address] [id number] [address] [place] [address], [place] [address] 17 Mar, 2012 [facility] [address] [id number] [address] [place] [address], [place] [address] 15 Mar, 2012 [facility] [address] [id number] [address] [place] [address], [place] [address] 15 Mar, 2012 [facility] [address] [id number] [address] [place] [address], [place] [address] 15 Mar, 2012 [facility] [address] [id number] [address] [place] [address], [place] [address] 15 Mar, 2012 [facility] [address] [id number] [address] [place] [address], [place] [address] Mar, [facility] [address] [id number] [address] [place] [address], [place] [address] 11 Mar, 2012 [facility] [address] [id number] [address] [place] [address], [place] [address] 08 Mar, 2012 [facility] [address] [id number] [address] [place] [address], [place] [address] 08 Mar, 2012 [facility] [address] [id number] [address] [place] [address], [place] [address] 03 Mar, 2012 [facility] [address] [id number] [address] [place] [address] 01 Mar, 2012 [facility] [address] [id number] [address] [place] [address], [place] [address] 19 Sep, 2011 [facility] [address] [id number] [address] [place] [address], [place] [address] 18 Sep, 2011 [facility] [address] [id number] [address] [place] [address], [place] [address] 17 Feb, 2011 [facility] [address] [id number] [address] [place] [address], [place] [address] 14 Feb, 2011 [facility] [address] [id number] [address] [place] [address], [place] [address] 14 Feb, 2011 [facility] [address] [id number] [address] [place] [address], [place] [address] 12 Feb, 2011 [facility] [address] [id number] [address] [place] [address], [place] [address] 10 Feb, 2011 [facility] [address] [id number] [address] [place] [address], [place] [address] 31 Jan, 2012 [facility] [address] [id number] [address] [place] [address], [place] [address] 30 Jan, 2012 [facility] [address] [id number] [address] [place] [address], [place] [address] 22 Jan, 2012 [facility] [address] [id number] [address] [place] [address], [place] [address] 20 Jan, 2012 [facility] [address] [id number] [address] [place] [address], [place] [address] 17 Jan, 2012 [facility] [address] [id number] [address] [place] [address], [place] [address] 17 Jan, 2012 [facility] [address] [id number] [address] [place] [address], [place] [address] 17 Jan, 2012 [facility] [address] [id number] [address] [place] [address], [place] [address] 16 Jan, 2012 [facility] [address] [id number] [address] [place] [address], [place] [address] 13 Jan, 2012 [facility] [address] [id number] [address] [place] [address], [place] [address] 07 Jan, 2012 [facility] [address] [id number] [address] [place] [address], [place] [address] 26 Dec, 2011 [facility] [address] [id number] [address] [place] [address], [place] [address] 24 Dec, 2011 [facility] [address] [id number] [address] [place] [address], [place] [address] 23 Dec, 2011 [facility] [address] [id number] [address] [place] [address], [place] [address] 19 Dec, 2011 [facility] [address] [id number] [address] [place] [address], [place] [address] 18 Dec, 2011 [facility] [address] [id number] [address] [place] [address], [place] [id number] 17 Dec, 2011 [facility] [address] [id number] [address] [place] [address], [place] [id number] 16 Dec, 2011 [facility] [address] [id number] [address] [place] [address], [place] [id number] 14 Dec, 2011 [facility] [address] [id number] [address] [place] [address], [place] [id number] Dec, [facility] [address] [id number] [address] [place] [address], [place] [id number] Dec, [facility] [address] [id number] [address] [place] [address], [place] [id number] Dec, [facility] [address] [id number] [address] [place] [address], [place] [id number] Nov, [facility] [address] [id number] [address] [place] [address], [place] [id number] Nov, [facility] [address] [id number] [address] [place] [address], [place] [id number] Nov, [facility] [address] [facility] [id number] [address] [place] [id number] Nov, [facility] [address] [facility] [id number] [address] [place] [id number] Nov, [facility] [address] [facility] [id number] [address] [place] [id number] Nov, [facility] [address] [facility] [id number] [address] [place] [id number] Nov, [facility] [address] [facility] [id number] [address] [place] [id number] Nov, [facility] [address] [facility] [id number] [address] [place] [id number] Nov, [facility] [address] [facility] [id number] [address] [place] [id number] Nov, [facility] [address] [facility] [id number] [address] [place] [id number] October, IMMUNIZATIONS No Known Immunizations SOCIAL HISTORY [...] 09/2018 Hospitalization History VC for Cdiff 01/2019 Hospitalization History AVC x 3 days for acid reflux 11/2019
--- OUTSIDE RECORDS SUMMARY | 2019-12-11 17:57 | XMS REPORT ---
Author Author Maggy Ballesteros Doctor Organization [facility] Address Unknown Phone Unavailable Care Team Providers Care Elevator Repairer Name Role Phone Migration, Doctor Unavailable Unavailable PROBLEMS Type Condition ICD9-CM Code LFR92-EI Code Onset Dates Condition S tatus SNOMED Code Problem Abnormal glucose R73.09 Active 102 438883 Problem Hyperlipidemia LDL goal <100 E78.5 A ctive 89045950 Problem Elevated liver enzymes R74.8 Active 354801112 Problem Tremor, hereditary, benign G25.0 Act caitlin 762302450 Problem Major depressive disorder, recurrent episode, moderate F33.1 Active 989015132 Problem Reflux gastritis K29.60 Active 729 85790 Problem Other chronic pain G89.29 Active 8 3175316 Problem Constipation by delayed colonic transit K59.01 Active 96531085 Problem Essential hypertension I10 Active 18297013 Problem Seizure disorder G40.909 Active 128 160556 Problem Other chronic pain G89.29 Active 8 9050923 Problem Moderate persistent asthma without complication J4 5.40 Active 653375401 Problem Primary insomnia F51.01 Active 397 2004 Problem Intractable chronic migraine without aura and wi th status migrainosus G43.711 Active 038503061 Problem Moderate persistent asthma with exacerbation J45.4 1 Active 905443116 Problem Irritable bowel syndrome with constipation K58.1 Active 872509658 Problem Lumbago with sciatica, left side M54.42 Active 382053033 Problem Lumbago with sciatica, right side M54.41 Active 033019390498163 Problem History of hypokalemia Z86.39 Active 600606322 Problem Chronic migraine without aura with statu s migrainosus, not intractable G43.701 Active 676155866 Problem Chronic fatigue R53.82 Active 8422 9001 Problem Irritable bowel K58.9 Active 1074 3008 Problem Hypokalemia E87.6 Active 41583341 Problem Mood disorder F39 Active 915563 05 Problem RLS (restless legs syndrome) G25.81 A ctive 14509236 Problem Aneurysm I72.9 Active 29537394 Problem Migraine with aura and without status migrainosu s, not intractable G43.109 Active 2935377 ALLERGIES No Information ENCOUNTERS Encounter Location Date Diagnosis [place] [address] [address] 07 Dec, 2019 [place] [address] [address] Nov, Other chronic pain G89.29 [place] [address] [address] 08 Nov, 2019 Seizure disorder G40.909 and Hypokalemia E87.[address] [address] 05 Nov, 2019 Electrolyte imbalance E87.8 [place] [address] [address] Nov, Electrolyte imbalance E87.8 [place] [address] [address] October, Diarrhea, unspecified R19.7 ; Nausea with vomiting, unspecified R11.2 and Chronic fatigue R53.82 [place] [address] [address] October, [place] [address] [address] October, Seizure disorder G40.909 and Tremor, hereditary, benign G25.0 [place] [address] [address] Sep, Primary insomnia F51.01 ; Ot her chronic pain G89.29 and Pain in right shoulder M25.511 [place] [address] [place] [id number] [address] [place] [address] 08 Sep, 2019 Bilious vomiting with nausea R11.14 [facility] [address] [place] [id number] [address] [place] [address] 07 Aug, 2019 Influenza A J10.1 [place] [address] [address] Aug, [place] [address] [address] Aug, Tinea pedis of both feet B35 .3 and Migraine with aura and without status migrainosus, not intractable G43.109 [place] [address] [address] Jul, [facility] [address] [address] Jul, Rib pain on left side R07.81 [place] [address] [address] 10 Jul, 2019 Seizure disorder G40.909 and Aneurysm I72.9 [place] [address] [address] Jul, [place] [address] [address] Jul, Seizure disorder G40.909 ; A neurysm I72.9 ; Migraine with aura and without status migrainosus, not intractable G43.109 and History of hypokalemia Z86.39 [place] [address] [address] Jul, [place] [address] [address] Jun, [place] [address] [address] Jun, Seizures R56.9 ; Migraine wi th aura and without status migrainosus, not intractable G43.109 ; Other chronic pain G89.29 and Pain in right shoulder M25.511 [place] [address] [address] Jun, [facility] [address] [id number] [address] [place] [address] May, Primary insomnia F51.01 ; In tractable chronic migraine without aura and with status migrainosus G43.711 and Aneurysm I72.9 [facility] [address] [id number] [address] [place] [address] Apr, RLS (restless legs syndrome) G25.81 and Mood disorder F39 [facility] [address] [id number] [address] [place] [address] Apr, [facility] [address] [id number] [address] [place] [address] Mar, Other chronic pain G89.29 an d Pain in right shoulder M25.511 [facility] [address] [id number] [address] [place] [address] Mar, Acute left ankle pain M25.57 2 [facility] [address] [id number] [address] [place] [address] Mar, [facility] [address] [id number] [address] [place] [address] Mar, Acute left ankle pain M25.57 2 [facility] [address] [id number] [address] [place] [address] Mar, Major depressive disorder, r ecurrent episode, moderate F33.1 [facility] [address] [id number] [address] [place] [address] Mar, Major depressive disorder, r ecurrent episode, moderate F33.1 ; Lumbago with sciatica, left side M54.42 and Lumbago with sciatica, right side M54.41 [facility] [address] [id number] [address] [place] [address] Mar, [facility] [address] [id number] [address] [place] [address] Mar, [facility] [address] [facility] [id number] [address] [place] [address] Mar, Major depressive disorder, r ecurrent episode, moderate F33.1 ; Lumbago with sciatica, left side M54.42 and Lumbago with sciatica, right side M54.41 [place] [address] [facility] [id number] [address] [place] [address] Feb, Viral gastroenteritis A08.4 [facility] [address] [facility] [id number] [address] [place] [address] Feb, Nausea and vomiting, intract ability of vomiting not specified, unspecified vomiting type R11.2 [place] [address] [facility] [id number] [address] [place] [address] Feb, [place] [address] [place] [id number] [place] [address] Feb, [place] [address] [place] [id number] [place] [address] Feb, C. difficile colitis A04.72 ; Mood disorder F39 ; Lumbago with sciatica, left side M54.42 ; Lumbago with sciatica, right side M54.41 and Other chronic pain G89.29 [place] [address] [facility] [id number] [address] [place] [address] Jan, [facility] [address] [facility] [id number] [address] [place] [address] Jan, Nausea & vomiting R11.2 [place] [address] [facility] [id number] [address] [place] [address] Dec, Irritable bowel syndrome wit h constipation K58.1 ; Other chronic pain G89.29 and Pain in right shoulder M25.511 [facility] [address] [facility] [id number] [address] [place] [address] Dec, [facility] [address] [facility] [id number] [address] [place] [address] Dec, Generalized abdominal pain R 10.84 and Nausea and vomiting, intractability of vomiting not specified, unspecified vomiting type R11.2 [facility] [address] [address] Dec, Dysuria R30.0 and Irritable bowel K58.9 [facility] [address] [place] [id number] [place] [phone] Sep, Chronic nausea R11.0 [facility] [address] [address] Sep, [place] [address] [address] Sep, Viral gastroenteritis A08.4 [facility] [address] [address] Aug, Headache R51 ; Viral upper r espiratory tract infection J06.9 and Nausea R11.0 [facility] [address] [place] [id number] [address] [place] [address] Jun, Reflux gastritis K29.60 [place] [address] [address] Jun, [place] [address] [address] May, [place] [address] [address] May, [place] [address] [address] Apr, Bowel habit changes R19.4 an d Acute cystitis without hematuria N30.00 [place] [address] [place] [id number] [place] [address] Apr, Pain in right shoulder M25.5 11 [place] [address] [address] Apr, [facility] [address] [id number] [address] [place] [address] Mar, [facility] [address] [id number] [address] [place] [address] Mar, [facility] [address] [id number] [address] [place] [address] Mar, [facility] [address] [id number] [address] [place] [address] Mar, [facility] [address] [id number] [address] [place] [address] Feb, [facility] [address] [id number] [address] [place] [address] Feb, [facility] [address] [id number] [address] [place] [address] Feb, [facility] [address] [id number] [address] [place] [address] Jan, [facility] [address] [id number] [address] [place] [address] Dec, [facility] [address] [id number] [address] [place] [address] Dec, Other chronic pain G89.29 ; Pain in right shoulder M25.511 and Liver enzyme elevation R74.8 [facility] [address] [id number] [address] [place] [address] Nov, Other chronic pain G89.29 an d Pain in right shoulder M25.511 [facility] [address] [id number] [address] [place] [address] October, [facility] [address] [id number] [address] [place] [address] October, Right shoulder pain, unspeci fied chronicity M25.511 [facility] [address] [id number] [address] [place] [address] Aug, Elevated liver enzymes R74.8 and Hyperlipidemia LDL goal <100 E78.5 [facility] [address] [facility] [id number] [address] [place] [address] Aug, [facility] [address] [place] [id number] [address] [place] [address] Jul, [facility] [address] [address] Jul, Intractable chronic migraine without aura and with status migrainosus G43.711 ; Fever, unspecified fever cause R50.9 and Elevated liver enzymes R74.8 [place] [address] [address] Jun, Difficulty urinating R39.198 and Moderate persistent asthma with exacerbation J45.41 [place] [address] [address] Jun, [facility] [address] [address] Jun, Moderate persistent asthma w ith exacerbation J45.41 [place] [address] [address] May, Elevated liver enzymes R74.8 and Hyperlipidemia LDL goal <100 E78.5 [place] [address] [address] May, Elevated lipids E78.5 [place] [address] [place] [id number] [place] [address] Apr, Elevated liver enzymes R74.8 [place] [address] [place] [id number] [place] [address] Apr, Elevated liver enzymes R74.8 [place] [address] [place] [id number] [address] [place] [address] Apr, Superior glenoid labrum lesi on of right shoulder, subsequent encounter S43.431D [place] [address] [facility] [id number] [address] [place] [address] Apr, Hypokalemia E87.6 ; Major de pressive disorder, recurrent episode, moderate F33.1 ; Other abnormalities of breathing R06.89 and Dyspnea, unspecified R06.[address] [facility] [address] [facility] [id number] [address] [place] [address] Mar, Moderate persistent asthma w [facility] complication J45.40 [facility] [address] [facility] [id number] [address] [place] [address] Mar, Impingement syndrome of righ t shoulder M75.41 [facility] [address] [place] [id number] [place] [address] Jan, [place] [address] [place] [id number] [place] [address] Jan, Chronic migraine without aur a with status migrainosus, not intractable G43.701 ; Essential hypertension I10 ; Irritable bowel K58.9 ; Primary insomnia F51.01 and Hypokalemia E87.6 [facility] [address] [facility] [id number] [address] [place] [address] Dec, [facility] [address] [place] [id number] [address] [place] [address] Dec, Pain in right shoulder M25.5 11 [facility] [address] [facility] [id number] [address] [place] [address] Dec, Essential hypertension I10 [facility] [address] [facility] [id number] [address] [place] [address] Dec, [facility] [address] [place] [id number] [place] [address] Nov, Essential hypertension I10 [place] [address] [facility] [id number] [address] [place] [address] Nov, Pain in right shoulder M25.5 11 [facility] [address] [facility] [id number] [address] [place] [address] Nov, Pain in right shoulder M25.5 11 [facility] [address] [facility] [id number] [address] [place] [address] October, [facility] [address] [facility] [id number] [address] [place] [address] October, Pain in right shoulder M25.5 11 [facility] [address] [place] [id number] [place] [address] Sep, Arm pain, right M79.601 [facility] [address] [id number] [address] [place] [address] Sep, [facility] [address] [place] [id number] [place] [address] Sep, Abnormal glucose R73.09 and Elevated lipids E78.5 [place] [address] [place] [id number] [place] [address] Sep, Abnormal glucose R73.09 and Elevated lipids E78.5 [facility] [address] [place] [id number] [place] [address] Aug, [place] [address] [place] [id number] [place] [address] Aug, [facility] [address] [place] [id number] [address] [place] [address] Aug, [facility] [address] [address] Aug, Constipation by delayed colo reny transit K59.01 ; Hypokalemia E87.6 ; Irritable bowel K58.9 ; Essential hypertension I10 ; Pain in right shoulder M25.511 ; Seizure disorder G40.909 and Screening for lipid disorders Z13.220 [facility] [address] [place] [id number] [place] [address] Jul, Other chronic pain G89.29 an d Pain in right shoulder M25.511 [place] [id number] [place] [address] 14 Jul, 2016 Biceps muscle strain, right, subsequent encounter S46.111D [facility] [place] [address] [address] 08 Jul, 2016 Arm pain, right M79.601 [place] [address] [address] Jun, [place] [address] [address] Jun, Acute non-recurrent frontal sinusitis J01.10 [place] [address] [address] May, Generalized abdominal pain R 10.84 ; Urinary tract infection without hematuria, site unspecified N39.0 ; Hypokalemia E87.6 ; Essential hypertension I10 ; Screening for lipid disorders Z13.220 ; Seizure R56.9 and Low back pain M54.5 [place] [address] [place] [id number] [address] [place] [address] Apr, [facility] [place] [address] [address] Feb, [place] [address] [address] Jan, [place] [address] [address] Dec, Constipation by delayed colo reny transit K59.01 ; Hypokalemia E87.6 ; Irritable bowel K58.9 and Nausea R11.0 [facility] [place] [address] [address] Dec, Generalized abdominal pain R 10.84 [place] [address] [place] [id number] [address] [place] [address] Nov, [facility] [place] [address] [address] 14 Aug, 2015 Acute bronchitis J20.9 [place] [address] [address] 14 Aug, 2015 [place] [address] [address] 08 Aug, 2015 Low back pain M54.5 ; Hypoka lemia E87.6 ; Chronic migraine without aura with status migrainosus, not intractable G43.701 ; Tremor, hereditary, benign G25.0 ; Irritable bowel K58.9 ; Essential hypertension I10 and Seizure R56.9 [place] [address] [address] 07 Aug, 2015 [place] [address] [address] Jul, [place] [address] [address] 03 Jul, 2015 Low back pain M54.5 ; Hypoka lemia E87.6 ; Chronic migraine without aura with status migrainosus, not intractable G43.701 ; Tremor, hereditary, benign G25.0 ; Irritable bowel K58.9 ; Essential hypertension I10 and Seizure R56.9 [place] [address] [address] Jun, Hypokalemia E87.6 [place] [address] [address] 15 Jun, 2015 ADD (attention deficit disor dionicio) without hyperactivity F90.0 ; Generalized anxiety disorder F41.1 and Major depressive disorder, recurrent episode, moderate F33.1 [place] [address] [address] 13 Jun, 2015 Low back pain M54.5 ; Hypoka lemia E87.6 ; Chronic migraine without aura with status migrainosus, not intractable G43.701 ; Tremor, hereditary, benign G25.0 ; Irritable bowel K58.9 ; Essential hypertension I10 and Seizure R56.9 [place] [address] [facility] [id number] [address] [place] [address] Jun, [place] [address] [place] [id number] [place] [address] May, [place] [address] [place] [id number] [place] [address] May, Low back pain M54.5 ; Hypoka lemia E87.6 ; Chronic migraine without aura with status migrainosus, not intractable G43.701 ; Tremor, hereditary, benign G25.0 ; Irritable bowel K58.9 ; Essential hypertension I10 ; Seizure R56.9 and Tinea capitis B35.0 [place] [address] [place] [id number] [place] [address] May, Low back pain M54.5 ; Hypoka lemia E87.6 ; Chronic migraine without aura with status migrainosus, not intractable G43.701 ; Tremor, hereditary, benign G25.0 ; Irritable bowel K58.9 ; Essential hypertension I10 ; Seizure R56.9 ; Otitis media, left H66.92 and Dysuria 788.1 [place] [address] [place] [id number] [place] [address] 14 May, 2015 Tooth pain K08.8 [place] [address] [place] [id number] [place] [address] May, [place] [address] [place] [id number] [place] [address] May, Low back pain M54.5 ; Hypoka lemia E87.6 ; Chronic migraine without aura with status migrainosus, not intractable G43.701 ; Tremor, hereditary, benign G25.0 ; Irritable bowel K58.9 and Essential hypertension I10 [place] [address] [facility] [id number] [address] [place] [address] Apr, Low back pain M54.5 ; Hypoka lemia E87.6 ; Chronic migraine without aura with status migrainosus, not intractable G43.701 ; Tremor, hereditary, benign G25.0 and Irritable bowel K58.9 [place] [address] [address] Apr, Low back pain M54.5 [place] [address] [address] Mar, [facility] [address] [address] Mar, Irritable bowel syndrome wit h diarrhea K58.0 [place] [address] [address] Mar, [place] [address] [address] Feb, [place] [address] [address] Feb, [place] [address] [address] Feb, Irritable bowel syndrome 564 .1 ; Lumbago 724.2 and Cervical pain (neck) 723.1 [place] [address] [address] Dec, Major depressive disorder, r ecurrent episode, moderate 296.32 and Generalized anxiety disorder 300.02 [place] [address] [address] Nov, [place] [address] [address] Nov, Major depressive disorder, r ecurrent episode, moderate 296.32 [place] [address] [address] 08 Nov, 2014 Constipation 564.00 ; Nausea & vomiting 787.01 and Abdominal pain 789.00 [facility] [address] [id number] [address] [place] [address], [place] [address] Nov, [facility] [address] [id number] [address] [place] [address], [place] [address] October, [facility] [address] [id number] [address] [place] [address], [place] [address] October, [facility] [address] [id number] [address] [place] [address], [place] [address] October, [facility] [address] [id number] [address] [place] [address], [place] [address] October, [facility] [address] [id number] [address] [place] [address], [place] [address] Sep, [facility] [address] [id number] [address] [place] [address], [place] [address] Sep, Dysuria 788.1 [facility] [address] [id number] [address] [place] [address], [place] [address] Sep, [facility] [address] [id number] [address] [place] [address], [place] [address] Sep, [facility] [address] [id number] [address] [place] [address], [place] [address] Sep, [facility] [address] [id number] [address] [place] [address], [place] [address] Aug, [facility] [address] [id number] [address] [place] [address], [place] [address] Aug, [facility] [address] [id number] [address] [place] [address], [place] [address] Aug, [facility] [address] [id number] [place] [address], [place] [address] Aug, [facility] [address] [id number] [address] [place] [address], [place] [address] Aug, [facility] [address] [id number] [address] [place] [address], [place] [address] Aug, [facility] [address] [id number] [address] [place] [address], [place] [address] Aug, [facility] [address] [id number] [address] [place] [address], [place] [address] Aug, [facility] [address] [id number] [address] [place] [address], [place] [address] Aug, [facility] [address] [id number] [address] [place] [address], [place] [address] Aug, [facility] [address] [id number] [address] [place] [address], [place] [address] Jun, [facility] [address] [id number] [address] [place] [address], [place] [address] Jun, [facility] [address] [id number] [address] [place] [address], [place] [address] Jun, [facility] [address] [id number] [address] [place] [address], [place] [address] Jun, [facility] [address] [id number] [address] [place] [address], [place] [address] May, [facility] [address] [id number] [address] [place] [address], [place] [address] May, [facility] [address] [id number] [address] [place] [address], [place] [address] May, [facility] [address] [id number] [address] [place] [address], [place] [address] May, [facility] [address] [id number] [address] [place] [address], [place] [address] May, [facility] [address] [id number] [address] [place] [address], [place] [address] May, [facility] [address] [id number] [address] [place] [address], [place] [address] May, [facility] [address] [id number] [address] [place] [address], [place] [address] May, [facility] [address] [id number] [address] [place] [address], [place] [address] Mar, [facility] [address] [id number] [address] [place] [address], [place] [address] Mar, [facility] [address] [id number] [address] [place] [address], [place] [address] Mar, [facility] [address] [id number] [address] [place] [address], [place] [address] Mar, [facility] [address] [id number] [address] [place] [address], [place] [address] Mar, [facility] [address] [id number] [address] [place] [address], [place] [address] Mar, [facility] [address] [id number] [address] [place] [address], [place] [address] Mar, [facility] [address] [id number] [address] [place] [address], [place] [address] Mar, [facility] [address] [id number] [address] [place] [address], [place] [address] Mar, [facility] [address] [id number] [address] [place] [address], [place] [address] Mar, [facility] [address] [id number] [address] [place] [address], [place] [address] Mar, [facility] [address] [id number] [address] [place] [address], [place] [address] Mar, [facility] [address] [id number] [address] [place] [address], [place] [address] Feb, [facility] [address] [id number] [address] [place] [address], [place] [address] Feb, [facility] [address] [id number] [address] [place] [address], [place] [address] Feb, [facility] [address] [id number] [facility] [address] Feb, [facility] [address] [id number] [address] [place] [address], [place] [address] Feb, [facility] [address] [id number] [address] [place] [address], [place] [address] Feb, [facility] [address] [id number] [address] [place] [address], [place] [address] Jan, [facility] [address] [id number] [address] [place] [address], [place] [address] Jan, [facility] [address] [id number] [address] [place] [address], [place] [address] Jan, [facility] [address] [id number] [address] [place] [address], [place] [address] Jan, [facility] [address] [id number] [address] [place] [address], [place] [address] Jan, [facility] [address] [id number] [address] [place] [address], [place] [address] Jan, [facility] [address] [id number] [address] [place] [address], [place] [address] Jan, [facility] [address] [id number] [address] [place] [address], [place] [address] Jan, [facility] [address] [id number] [address] [place] [address], [place] [address] Dec, [facility] [address] [id number] [address] [place] [address], [place] [address] Dec, [facility] [address] [id number] [address] [place] [address], [place] [address] Dec, [facility] [address] [id number] [address] [place] [address], [place] [address] Dec, [facility] [address] [id number] [address] [place] [address], [place] [address] Dec, [facility] [address] [id number] [facility] [address] Dec, [facility] [address] [id number] [address] [place] [address], [place] [address] Dec, [facility] [address] [id number] [address] [place] [address], [place] [address] Dec, [facility] [address] [id number] [address] [place] [address], [place] [address] October, [facility] [address] [id number] [address] [place] [address], [place] [address] October, [facility] [address] [id number] [address] [place] [address], [place] [address] Sep, [facility] [address] [id number] [address] [place] [address], [place] [address] Sep, [facility] [address] [id number] [address] [place] [address], [place] [address] Sep, [facility] [address] [id number] [address] [place] [address], [place] [address] Sep, [facility] [address] [id number] [address] [place] [address], [place] [address] Sep, [facility] [address] [id number] [address] [place] [address], [place] [address] Sep, [facility] [address] [id number] [address] [place] [address], [place] [address] Sep, [facility] [address] [id number] [address] [place] [address], [place] [address] Sep, [facility] [address] [id number] [address] [place] [address], [place] [address] Sep, [facility] [address] [id number] [address] [place] [address], [place] [address] Sep, [facility] [address] [id number] [address] [place] [address], [place] [address] Sep, [facility] [address] [id number] [address] [place] [address], [place] [address] Sep, [facility] [address] [id number] [address] [place] [address], [place] [address] Aug, [facility] [address] [id number] [address] [place] [address], [place] [address] Aug, [facility] [address] [id number] [address] [place] [address], [place] [address] Aug, [facility] [address] [id number] [address] [place] [address], [place] [address] Jun, [facility] [address] [id number] [address] [place] [address], [place] [address] Jun, [facility] [address] [id number] [address] [place] [address], [place] [address] Jun, [facility] [address] [id number] [address] [place] [address], [place] [address] Jun, [facility] [address] [id number] [address] [place] [address], [place] [address] Jun, [facility] [address] [id number] [address] [place] [address], [place] [address] Jun, [facility] [address] [id number] [address] [place] [address], [place] [address] Jun, [facility] [address] [id number] [address] [place] [address], [place] [address] Jun, [facility] [address] [id number] [address] [place] [address], [place] [address] Jun, [facility] [address] [id number] [address] [place] [address], [place] [address] Jun, [facility] [address] [id number] [address] [place] [address], [place] [address] May, [facility] [address] [id number] [address] [place] [address], [place] [address] May, [facility] [address] [id number] [address] [place] [address], [place] [address] May, [facility] [address] [id number] [address] [place] [address], [place] [address] May, [facility] [address] [id number] [address] [place] [address], [place] [address] Apr, [facility] [address] [id number] [address] [place] [address], [place] [address] Apr, [facility] [address] [id number] [address] [place] [address] Apr, [facility] [address] [id number] [address] [place] [address], [place] [address] Apr, [facility] [address] [id number] [address] [place] [address] Apr, [facility] [address] [id number] [address] [place] [address], [place] [address] Apr, [facility] [address] [id number] [address] [place] [address] Apr, [facility] [address] [id number] [address] [place] [address] Apr, [facility] [address] [id number] [address] [place] [id number] Mar, [facility] [address] [id number] [address] [place] [address], [place] [address] Mar, [facility] [address] [id number] [address] [place] [address] Mar, [facility] [address] [id number] [address] [place] [phone] Mar, [facility] [address] [id number] [address] [place] [address], [place] [address] 04 Mar, 2013 [facility] [address] [id number] [address] [place] [address], [place] [address] 23 Feb, 2013 [facility] [address] [id number] [address] [place] [address], [place] [address] 11 Feb, 2013 [facility] [address] [id number] [address] [place] [address], [place] [address] 05 Feb, 2012 [facility] [address] [id number] [address] [place] [address], [place] [address] 05 Feb, 2013 [facility] [address] [id number] [address] [place] [address], [place] [address] 04 Feb, 2013 [facility] [address] [id number] [address] [place] [address], [place] [address] Jan, [facility] [address] [id number] [address] [place] [address], [place] [address] Jan, [facility] [address] [id number] [address] [place] [address], [place] [address] Nov, [facility] [address] [id number] [address] [place] [address], [place] [address] Nov, [facility] [address] [id number] [address] [place] [address], [place] [address] Nov, [facility] [address] [id number] [address] [place] [address], [place] [address] Nov, [facility] [address] [id number] [address] [place] [address], [place] [address] October, [facility] [address] [id number] [address] [place] [address], [place] [address] Sep, [facility] [address] [id number] [address] [place] [address], [place] [address] Aug, [facility] [address] [id number] [address] [place] [address], [place] [address] Aug, [facility] [address] [id number] [address] [place] [address], [place] [address] Aug, [facility] [address] [id number] [address] [place] [address], [place] [address] Aug, [facility] [address] [id number] [address] [place] [address], [place] [address] Jul, [facility] [address] [id number] [address] [place] [address], [place] [address] Jun, [facility] [address] [id number] [address] [place] [address], [place] [address] Jun, [facility] [address] [id number] [address] [place] [address], [place] [address] May, [facility] [address] [id number] [address] [place] [address], [place] [address] May, [facility] [address] [id number] [address] [place] [id number] Mar, [facility] [address] [id number] [address] [place] [address], [place] [address] Mar, [facility] [address] [id number] [address] [place] [phone] Mar, [facility] [address] [id number] [address] [place] [phone] Mar, [facility] [address] [id number] [address] [place] [address] Mar, [facility] [address] [id number] [address] [place] [address], [place] [address] Mar, [facility] [address] [id number] [address] [place] [id number] Mar, [facility] [address] [id number] [address] [place] [phone] Mar, [facility] [address] [id number] [address] [place] [id number] 22 Mar, 2012 [facility] [address] [id number] [address] [place] [address], [place] [address] 20 Mar, 2011 [facility] [address] [id number] [address] [place] [phone] 20 Mar, 2012 [facility] [address] [id number] [address] [place] [address], [place] [address] 17 Mar, 2012 [facility] [address] [id number] [address] [place] [id number] 17 Mar, 2012 [facility] [address] [id number] [address] [place] [address], [place] [address] 15 Mar, 2012 [facility] [address] [id number] [address] [place] [phone] 15 Mar, 2012 [facility] [address] [id number] [address] [place] [id number] 15 Mar, 2012 [facility] [address] [id number] [address] [place] [id number] 15 Mar, 2012 [facility] [address] [id number] [address] [place] [phone] Mar, [facility] [address] [id number] [address] [place] [phone] Mar, [facility] [address] [id number] [address] [place] [id number] 08 Mar, 2012 [facility] [address] [id number] [address] [place] [phone] 08 Mar, 2012 [facility] [address] [id number] [address] [place] [phone] 03 Mar, 2012 [facility] [address] [id number] [address] [place] [phone] Mar, [facility] [address] [id number] [address] [place] [address], [place] [address] 19 Feb, 2012 [facility] [address] [id number] [facility] [address] 18 Sep, 2011 [facility] [address] [id number] [address] [place] [address], [place] [address] 17 Sep, 2011 [facility] [address] [id number] [address] [place] [address], [place] [address] 14 Sep, 2011 [facility] [address] [id number] [address] [place] [address], [place] [address] 14 Sep, 2011 [facility] [address] [id number] [address] [place] [address], [place] [address] 12 Feb, 2011 [facility] [address] [id number] [address] [place] [address], [place] [address] 10 Feb, 2011 [facility] [address] [id number] [address] [place] [address], [place] [address] 31 Jan, 2012 [facility] [address] [id number] [address] [place] [address], [place] [address] 30 Jan, 2011 [facility] [address] [id number] [address] [place] [address], [place] [address] 22 Jan, 2012 [facility] [address] [id number] [address] [place] [address], [place] [address] 20 Jan, 2012 [facility] [address] [id number] [address] [place] [address], [place] [address] 17 Jan, 2012 [facility] [address] [id number] [address] [place] [address], [place] [address] 17 Jan, 2012 [facility] [address] [id number] [address] [place] [address], [place] [address] 17 Jan, 2012 [facility] [address] [id number] [address] [place] [address], [place] [address] 16 Jan, 2012 [facility] [address] [id number] [address] [place] [address], [place] [address] 13 Jan, 2012 [facility] [address] [id number] [address] [place] [address], [place] [address] Jan, [facility] [address] [id number] [facility] [address] 26 Dec, 2011 [facility] [address] [id number] [address] [place] [address], [place] [address] 24 Dec, 2011 [facility] [address] [id number] [address] [place] [address], [place] [address] 23 Dec, 2011 [facility] [address] [id number] [address] [place] [address], [place] [address] 19 Dec, 2011 [facility] [address] [id number] [address] [place] [address], [place] [address] 18 Dec, 2011 [facility] [address] [id number] [address] [place] [address], [place] [address] 17 Dec, 2011 [facility] [address] [id number] [address] [place] [address], [place] [address] 16 Dec, 2011 [facility] [address] [id number] [address] [place] [address], [place] [address] 14 Dec, 2011 [facility] [address] [id number] [address] [place] [address], [place] [address] Dec, [facility] [address] [id number] [address] [place] [address], [place] [address] Dec, [facility] [address] [id number] [address] [place] [address], [place] [address] Dec, [facility] [address] [id number] [address] [place] [address], [place] [address] Nov, [facility] [address] [id number] [address] [place] [address], [place] [address] Nov, [facility] [address] [id number] [address] [place] [address], [place] [address] Nov, [facility] [address] [id number] [address] [place] [address], [place] [address] Nov, [facility] [address] [id number] [address] [place] [id number] Nov, [facility] [address] [facility] [id number] [address] [place] [id number] 20 Nov, 2011 [facility] [address] [facility] [id number] [address] [place] [id number] Nov, [facility] [address] [facility] [id number] [address] [place] [id number] Nov, [facility] [address] [facility] [id number] [address] [place] [id number] Nov, [facility] [address] [facility] [id number] [address] [place] [id number] Nov, [facility] [address] [facility] [id number] [address] [place] [id number] October, IMMUNIZATIONS No Known Immunizations SOCIAL HISTORY [...]
--- OUTSIDE RECORDS SUMMARY | 2019-12-11 17:57 | XMS REPORT ---
Author Author Maggy Ballesteros Doctor Organization [facility] Address Unknown Phone Unavailable Care Team Providers Care Cut Off Saw Grader Name Role Phone Migration, Doctor Unavailable Unavailable PROBLEMS Type Condition ICD9-CM Code HKE07-IN Code Onset Dates Condition S tatus SNOMED Code Problem Abnormal glucose R73.09 Active 102 513047 Problem Hyperlipidemia LDL goal <100 E78.5 A ctive 46514167 Problem Elevated liver enzymes R74.8 Active 842061842 Problem Tremor, hereditary, benign G25.0 Act caitlin 643232433 Problem Major depressive disorder, recurrent episode, moderate F33.1 Active 493103329 Problem Reflux gastritis K29.60 Active 729 98646 Problem Other chronic pain G89.29 Active 8 3472898 Problem Constipation by delayed colonic transit K59.01 Active 30557128 Problem Essential hypertension I10 Active 06310184 Problem Seizure disorder G40.909 Active 128 513261 Problem Other chronic pain G89.29 Active 8 0521598 Problem Moderate persistent asthma without complication J4 5.40 Active 104419360 Problem Primary insomnia F51.01 Active 397 2004 Problem Intractable chronic migraine without aura and wi th status migrainosus G43.711 Active 917649178 Problem Moderate persistent asthma with exacerbation J45.4 1 Active 069591732 Problem Irritable bowel syndrome with constipation K58.1 Active 428879360 Problem Lumbago with sciatica, left side M54.42 Active 880935313 Problem Lumbago with sciatica, right side M54.41 Active 281840688962070 Problem History of hypokalemia Z86.39 Active 414675101 Problem Chronic migraine without aura with statu s migrainosus, not intractable G43.701 Active 328435819 Problem Chronic fatigue R53.82 Active 8422 9001 Problem Irritable bowel K58.9 Active 1074 3008 Problem Hypokalemia E87.6 Active 91012763 Problem Mood disorder F39 Active 624308 05 Problem RLS (restless legs syndrome) G25.81 A ctive 17787843 Problem Aneurysm I72.9 Active 67295696 Problem Migraine with aura and without status migrainosu s, not intractable G43.109 Active 2456424 ALLERGIES No Information ENCOUNTERS Encounter Location Date Diagnosis [place] [address] [address] 07 Dec, 2019 Other chronic pain G89.29 an d Pain in right shoulder M25.511 [place] [address] [address] Dec, [place] [address] [address] 26 Nov, 2019 Other chronic pain G89.29 [place] [address] [address] 08 Nov, 2019 Seizure disorder G40.909 and Hypokalemia E87.6 [place] [address] [address] 05 Nov, 2019 Electrolyte imbalance E87.8 [place] [address] [address] Nov, Electrolyte imbalance E87.8 [place] [address] [address] October, Diarrhea, unspecified R19.7 ; Nausea with vomiting, unspecified R11.2 and Chronic fatigue R53.82 [place] [address] [address] October, [place] [address] [address] October, Seizure disorder G40.909 and Tremor, hereditary, benign G25.0 [place] [address] [address] Sep, Primary insomnia F51.01 ; Ot her chronic pain G89.29 and Pain in right shoulder M25.511 [place] [address] [address] 08 Sep, 2019 Bilious vomiting with nausea R11.14 [facility] [address] [address] 07 Aug, 2019 Influenza A J10.1 [place] [address] [place] [id number] [place] [address] Aug, [place] [address] [address] Aug, Tinea pedis of both feet B35 .3 and Migraine with aura and without status migrainosus, not intractable G43.109 [place] [address] [address] 21 Jul, 2019 [facility] [address] [place] [id number] [place] [address] 19 Jul, 2019 Rib pain on left side R07.81 [place] [address] [address] 10 Jul, 2019 Seizure disorder G40.909 and Aneurysm I72.9 [place] [address] [address] 07 Jul, 2019 [place] [address] [place] [id number] [place] [address] 06 Jul, 2019 Seizure disorder G40.909 ; A neurysm I72.9 ; Migraine with aura and without status migrainosus, not intractable G43.109 and History of hypokalemia Z86.39 [place] [address] [place] [address] 04 Jul, 2019 [place] [address] [place] [id number] [place] [address] Jun, [place] [address] [place] [id number] [place] [phone] Jun, Seizures R56.9 ; Migraine wi th aura and without status migrainosus, not intractable G43.109 ; Other chronic pain G89.29 and Pain in right shoulder M25.511 [facility] [address] [id number] [address] [place] [address] Jun, [facility] [address] [id number] [address] [place] [phone] May, Primary insomnia F51.01 ; In tractable chronic migraine without aura and with status migrainosus G43.[address] [facility] [address] [id number] [address] [place] [phone] Apr, RLS (restless legs syndrome) G25.81 [address] Mood [address] F39 [facility] [address] [id number] [address] [place] [phone] Apr, [facility] [address] [id number] [address] [place] [phone] Mar, Other chronic pain G89.29 an d Pain in right shoulder M25.511 [facility] [address] [id number] [address] [place] [phone] Mar, Acute left ankle pain M25.[address] [facility] [address] [id number] [address] [place] [phone] Mar, [facility] [address] [id number] [address] [place] [phone] Mar, Acute left ankle pain M25.[address] [facility] [address] [id number] [address] [place] [phone] Mar, Major depressive disorder, r ecurrent episode, moderate F33.1 [facility] [address] [id number] [address] [place] [address] Mar, Major depressive disorder, r ecurrent episode, moderate F33.1 ; Lumbago with sciatica, left side M54.42 and Lumbago with sciatica, right side M54.41 [facility] [address] [id number] [address] [place] [phone] Mar, [facility] [address] [place] [id number] [place] [phone] Mar, [place] [address] [place] [id number] [place] [phone] Mar, Major depressive disorder, r ecurrent episode, moderate F33.1 ; Lumbago with sciatica, left side M54.42 and Lumbago with sciatica, right side M54.41 [place] [address] [place] [id number] [place] [phone] Feb, Viral gastroenteritis A08.4 [facility] [address] [place] [id number] [place] [address] Feb, Nausea and vomiting, intract ability of vomiting not specified, unspecified vomiting type R11.2 [place] [address] [address] Feb, [place] [address] [place] [id number] [place] [phone] Feb, [place] [address] [address] Feb, C. difficile colitis A04.72 ; Mood disorder F39 ; Lumbago with sciatica, left side M54.42 ; Lumbago with sciatica, right side M54.41 and Other chronic pain G89.29 [place] [address] [place] [id number] [place] [phone] Jan, [facility] [address] [place] [id number] [place] [phone] Jan, Nausea & vomiting R11.2 [place] [address] [place] [id number] [place] [phone] Dec, Irritable bowel syndrome wit h constipation K58.1 ; Other chronic pain G89.29 and Pain in right shoulder M25.511 [facility] [address] [place] [id number] [place] [phone] Dec, Generalized abdominal pain R 10.84 and Nausea and vomiting, intractability of vomiting not specified, unspecified vomiting type R11.2 [facility] [address] [address] Dec, [facility] [address] [address] Dec, Dysuria R30.0 and Irritable bowel K58.9 [facility] [address] [place] [id number] [place] [phone] Sep, Chronic nausea R11.0 [place] [address] [address] Sep, [place] [address] [address] Sep, Viral gastroenteritis A08.4 [facility] [address] [address] Aug, Headache R51 ; Viral upper r espiratory tract infection J06.9 and Nausea R11.0 [facility] [address] [address] Jun, Reflux gastritis K29.60 [place] [address] [address] Jun, [place] [address] [address] May, [place] [address] [address] May, [place] [address] [address] Apr, Bowel habit changes R19.4 an d Acute cystitis without hematuria N30.00 [place] [address] [address] Apr, Pain in right shoulder M25.[address] [facility] [address] [id number] [address] [place] [phone] Apr, [facility] [address] [id number] [address] [place] [phone] Mar, [facility] [address] [id number] [address] [place] [phone] Mar, [facility] [address] [id number] [address] [place] [phone] Mar, [facility] [address] [id number] [address] [place] [address] Mar, [facility] [address] [id number] [address] [place] [phone] Feb, [facility] [address] [id number] [address] [place] [phone] Feb, [facility] [address] [id number] [address] [place] [phone] Feb, [facility] [address] [id number] [address] [place] [phone] Jan, [facility] [address] [id number] [address] [place] [phone] Dec, [facility] [address] [id number] [address] [place] [address] Dec, Other chronic pain G89.29 ; Pain in right shoulder M25.511 and Liver enzyme elevation R74.8 [facility] [address] [id number] [address] [place] [address] Nov, Other chronic pain G89.29 an d Pain in right shoulder M25.511 [facility] [address] [id number] [address] [place] [phone] October, [facility] [address] [id number] [address] [place] [phone] October, Right shoulder pain, unspeci fied chronicity M25.511 [facility] [address] [facility] [id number] [address] [place] [phone] Aug, Elevated liver enzymes R74.8 and Hyperlipidemia LDL goal <[address] [facility] [address] [place] [id number] [place] [phone] Aug, [facility] [address] [place] [id number] [place] [phone] Jul, [facility] [address] [place] [id number] [place] [phone] Jul, Intractable chronic migraine without aura and with status migrainosus G43.711 ; Fever, unspecified fever cause R50.9 and Elevated liver enzymes R74.8 [facility] [address] [place] [id number] [place] [address] Jun, Difficulty urinating R39.198 and Moderate persistent asthma with exacerbation J45.41 [facility] [address] [place] [id number] [place] [phone] Jun, [facility] [address] [place] [id number] [place] [phone] Jun, Moderate persistent asthma w ith exacerbation J45.41 [facility] [address] [place] [id number] [place] [phone] May, Elevated liver enzymes R74.8 and Hyperlipidemia LDL goal <[address] [facility] [address] [facility] [id number] [address] [place] [phone] May, Elevated lipids E78.5 [facility] [address] [place] [id number] [place] [address] Apr, Elevated liver enzymes R74.8 [facility] [address] [place] [id number] [place] [phone] Apr, Elevated liver enzymes R74.8 [facility] [address] [place] [id number] [place] [phone] Apr, Superior glenoid labrum lesi on of right shoulder, subsequent encounter S43.431D [facility] [address] [place] [id number] [place] [address] Apr, Hypokalemia E87.6 ; Major de pressive disorder, recurrent episode, moderate F33.1 ; Other abnormalities of breathing R06.89 and Dyspnea, unspecified R06.00 [facility] [address] [place] [id number] [place] [phone] Mar, Moderate persistent asthma w [facility] complication J45.40 [place] [address] [address] Mar, Impingement syndrome of righ t shoulder M75.41 [place] [address] [address] Jan, [place] [address] [address] Jan, Chronic migraine without aur a with status migrainosus, not intractable G43.701 ; Essential hypertension I10 ; Irritable bowel K58.9 ; Primary insomnia F51.01 and Hypokalemia E87.6 [place] [address] [place] [id number] [place] [phone] Dec, [place] [address] [address] Dec, Pain in right shoulder M25.5 11 [place] [address] [place] [id number] [place] [phone] Dec, Essential hypertension I10 [place] [address] [place] [id number] [place] [phone] Dec, [place] [address] [address] Nov, Essential hypertension I10 [place] [address] [place] [id number] [place] [phone] 14 Nov, 2016 Pain in right shoulder M25.[address] [facility] [address] [id number] [address] [place] [phone] 13 Nov, 2016 Pain in right shoulder M25.[address] [facility] [address] [id number] [address] [place] [phone] October, [facility] [address] [id number] [address] [place] [phone] October, Pain in right shoulder M25.[address] [facility] [address] [id number] [address] [place] [address] Sep, Arm pain, right M79.601 [facility] [address] [id number] [address] [place] [id number] Sep, [facility] [address] [id number] [address] [place] [phone] Sep, Abnormal glucose R73.09 and Elevated lipids E78.5 [place] [address] [id number] [address] [place] [phone] Sep, Abnormal glucose R73.09 and Elevated lipids E78.5 [place] [address] [facility] [id number] [address] [place] [phone] Aug, [facility] [address] [facility] [id number] [address] [place] [phone] Aug, [facility] [address] [id number] [address] [place] [phone] Aug, [facility] [address] [facility] [id number] [address] [place] [phone] Aug, Constipation by delayed colo reny transit K59.01 ; Hypokalemia E87.6 ; Irritable bowel K58.9 ; Essential hypertension I10 ; Pain in right shoulder M25.511 ; Seizure disorder G40.909 and Screening for lipid disorders Z13.220 [place] [address] [place] [id number] [place] [address] 28 Jul, 2016 Other chronic pain G89.29 an d Pain in right shoulder M25.511 [place] [address] [place] [id number] [place] [address] 14 Jul, 2016 Biceps muscle strain, right, subsequent encounter S46.111D [facility] [place] [address] [address] 08 Jul, 2016 Arm pain, right M79.601 [place] [address] [address] Jun, [place] [address] [address] Jun, Acute non-recurrent frontal sinusitis J01.10 [place] [address] [address] May, Generalized abdominal pain R 10.84 ; Urinary tract infection without hematuria, site unspecified N39.0 ; Hypokalemia E87.6 ; Essential hypertension I10 ; Screening for lipid disorders Z13.220 ; Seizure R56.9 and Low back pain M54.5 [place] [address] [place] [id number] [place] [address] Apr, [facility] [place] [address] [place] [id number] [place] [phone] Feb, [place] [address] [place] [id number] [place] [phone] Jan, [place] [address] [address] Dec, Constipation by delayed colo reny transit K59.01 ; Hypokalemia E87.6 ; Irritable bowel K58.9 and Nausea R11.0 [facility] [address] [place] [id number] [place] [address] Dec, Generalized abdominal pain R 10.84 [facility] [address] [place] [id number] [address] [place] [phone] Nov, [facility] [address] [address] Aug, Acute bronchitis J20.9 [facility] [address] [address] Aug, [place] [address] [address] Aug, Low back pain M54.5 ; Hypoka lemia E87.6 ; Chronic migraine without aura with status migrainosus, not intractable G43.701 ; Tremor, hereditary, benign G25.0 ; Irritable bowel K58.9 ; Essential hypertension I10 and Seizure R56.9 [place] [address] [address] Aug, [place] [address] [address] Jul, [place] [address] [address] 03 Jul, 2015 Low back pain M54.5 ; Hypoka lemia E87.6 ; Chronic migraine without aura with status migrainosus, not intractable G43.701 ; Tremor, hereditary, benign G25.0 ; Irritable bowel K58.9 ; Essential hypertension I10 and Seizure R56.9 [place] [address] [address] Jun, Hypokalemia E87.6 [place] [address] [address] Jun, ADD (attention deficit disor dionicio) without hyperactivity F90.0 ; Generalized anxiety disorder F41.1 and Major depressive disorder, recurrent episode, moderate F33.1 [place] [address] [address] Jun, Low back pain M54.5 ; Hypoka lemia E87.6 ; Chronic migraine without aura with status migrainosus, not intractable G43.701 ; Tremor, hereditary, benign G25.0 ; Irritable bowel K58.9 ; Essential hypertension I10 and Seizure R56.9 [place] [address] [place] [id number] [place] [phone] Jun, [place] [address] [address] May, [place] [address] [address] May, Low back pain M54.5 ; Hypoka lemia E87.6 ; Chronic migraine without aura with status migrainosus, not intractable G43.701 ; Tremor, hereditary, benign G25.0 ; Irritable bowel K58.9 ; Essential hypertension I10 ; Seizure R56.9 and Tinea capitis B35.0 [place] [address] [place] [id number] [place] [phone] 17 May, 2015 Low back pain M54.5 ; Hypoka lemia E87.6 ; Chronic migraine without aura with status migrainosus, not intractable G43.701 ; Tremor, hereditary, benign G25.0 ; Irritable bowel K58.9 ; Essential hypertension I10 ; Seizure R56.9 ; Otitis media, left H66.92 and Dysuria 788.1 [place] [address] [place] [id number] [place] [phone] May, Tooth pain K08.8 [place] [address] [address] May, [place] [address] [address] May, Low back pain M54.5 ; Hypoka lemia E87.6 ; Chronic migraine without aura with status migrainosus, not intractable G43.701 ; Tremor, hereditary, benign G25.0 ; Irritable bowel K58.9 and Essential hypertension I10 [facility] [address] [place] [id number] [place] [address] Apr, Low back pain M54.5 ; Hypoka lemia E87.6 ; Chronic migraine without aura with status migrainosus, not intractable G43.701 ; Tremor, hereditary, benign G25.0 and Irritable bowel K58.9 [facility] [address] [place] [id number] [place] [phone] 05 Apr, 2015 Low back pain M54.5 [facility] [address] [place] [id number] [place] [phone] Mar, [place] [address] [address] Mar, Irritable bowel syndrome wit h diarrhea K58.0 [place] [address] [address] Mar, [facility] [address] [place] [id number] [place] [phone] Feb, [place] [address] [address] 08 Feb, 2015 [facility] [address] [address] 03 Feb, 2015 Irritable bowel syndrome 564 .1 ; Lumbago 724.2 and Cervical pain (neck) 723.1 [facility] [address] [place] [id number] [place] [address] Dec, Major depressive disorder, r ecurrent episode, moderate 296.32 and Generalized anxiety disorder 300.02 [facility] [address] [place] [id number] [place] [address] Nov, [facility] [address] [place] [id number] [place] [address] Nov, Major depressive disorder, r ecurrent episode, moderate 296.32 [place] [address] [id number] [place] [phone] Nov, Constipation 564.00 ; Nausea & vomiting 787.01 and Abdominal pain 789.00 [facility] [address] [id number] [address] [place] [phone] Nov, [facility] [address] [id number] [address] [place] [phone] October, [facility] [address] [id number] [address] [place] [phone] October, [facility] [address] [id number] [address] [place] [phone] October, [facility] [address] [id number] [address] [place] [id number] October, [facility] [address] [id number] [address] [place] [id number] Sep, Dysuria 788.1 [facility] [address] [id number] [address] [place] [phone] Sep, [facility] [address] [id number] [address] [place] [phone] Sep, [facility] [address] [id number] [address] [place] [phone] Sep, [facility] [address] [id number] [address] [place] [phone] Sep, [facility] [address] [id number] [address] [place] [phone] Aug, [facility] [address] [id number] [address] [place] [phone] Aug, [facility] [address] [id number] [address] [place] [phone] Aug, [facility] [address] [id number] [address] [place] [id number] Aug, [facility] [address] [id number] [address] [place] [address], [place] [address] 18 Aug, 2014 [facility] [address] [id number] [address] [place] [address], [place] [address] 18 Aug, 2014 [facility] [address] [id number] [address] [place] [address], [place] [address] Aug, [facility] [address] [id number] [address] [place] [address], [place] [address] Aug, [facility] [address] [id number] [address] [place] [address], [place] [address] Aug, [facility] [address] [id number] [address] [place] [address], [place] [address] Aug, [facility] [address] [id number] [address] [place] [address], [place] [address] Jun, [facility] [address] [id number] [address] [place] [address], [place] [address] Jun, [facility] [address] [id number] [address] [place] [address], [place] [address] Jun, [facility] [address] [id number] [address] [place] [address], [place] [address] Jun, [facility] [address] [id number] [address] [place] [address], [place] [address] May, [facility] [address] [id number] [address] [place] [address], [place] [address] May, [facility] [address] [id number] [address] [place] [address], [place] [address] May, [facility] [address] [id number] [address] [place] [address], [place] [address] May, [facility] [address] [id number] [address] [place] [address], [place] [address] May, [facility] [address] [id number] [address] [place] [address], [place] [address] May, [facility] [address] [id number] [address] [place] [address], [place] [address] May, [facility] [address] [id number] [address] [place] [address], [place] [address] May, [facility] [address] [id number] [address] [place] [address], [place] [address] Mar, [facility] [address] [id number] [address] [place] [address], [place] [address] Mar, [facility] [address] [id number] [address] [place] [address], [place] [address] Mar, [facility] [address] [id number] [address] [place] [address], [place] [address] Mar, [facility] [address] [id number] [address] [place] [address], [place] [address] Mar, [facility] [address] [id number] [address] [place] [address], [place] [address] Mar, [facility] [address] [id number] [address] [place] [address], [place] [address] Mar, [facility] [address] [id number] [address] [place] [address], [place] [address] Mar, [facility] [address] [id number] [address] [place] [address], [place] [address] Mar, [facility] [address] [id number] [address] [place] [address] Mar, [facility] [address] [id number] [address] [place] [address], [place] [address] Mar, [facility] [address] [id number] [address] [place] [address], [place] [address] Mar, [facility] [address] [id number] [address] [place] [address], [place] [address] Feb, [facility] [address] [id number] [facility] [place] [address] 24 Feb, 2014 [facility] [address] [id number] [facility] [place] [address] Feb, [facility] [address] [id number] [facility] [place] [address] Feb, [facility] [address] [id number] [address] [place] [address], [place] [address] Feb, [facility] [address] [id number] [address] [place] [address], [place] [address] Feb, [facility] [address] [id number] [address] [place] [address], [place] [address] Jan, [facility] [address] [id number] [address] [place] [address], [place] [address] Jan, [facility] [address] [id number] [address] [place] [address], [place] [address] Jan, [facility] [address] [id number] [address] [place] [address], [place] [address] Jan, [facility] [address] [id number] [address] [place] [address], [place] [address] Jan, [facility] [address] [id number] [address] [place] [address], [place] [address] Jan, [facility] [address] [id number] [address] [place] [address], [place] [address] Jan, [facility] [address] [id number] [address] [place] [address], [place] [address] Jan, [facility] [address] [id number] [address] [place] [address], [place] [address] Dec, [facility] [address] [id number] [address] [place] [address], [place] [address] Dec, [facility] [address] [id number] [address] [place] [address], [place] [address] Dec, [facility] [address] [id number] [address] [place] [address], [place] [address] Dec, [facility] [address] [id number] [address] [place] [address], [place] [address] Dec, [facility] [address] [id number] [address] [place] [address], [place] [address] Dec, [facility] [address] [id number] [address] [place] [address], [place] [address] Dec, [facility] [address] [id number] [address] [place] [address], [place] [address] Dec, [facility] [address] [id number] [address] [place] [address], [place] [address] October, [facility] [address] [id number] [address] [place] [address], [place] [address] October, [facility] [address] [id number] [address] [place] [address], [place] [address] Sep, [facility] [address] [id number] [address] [place] [address], [place] [address] Sep, [facility] [address] [id number] [address] [place] [address], [place] [address] Sep, [facility] [address] [id number] [address] [place] [address], [place] [address] Sep, [facility] [address] [id number] [address] [place] [address], [place] [address] Sep, [facility] [address] [id number] [address] [place] [address], [place] [address] Sep, [facility] [address] [id number] [address] [place] [address], [place] [address] Sep, [facility] [address] [id number] [address] [place] [address], [place] [address] Sep, [facility] [address] [id number] [address] [place] [address], [place] [address] Sep, [facility] [address] [id number] [address] [place] [address], [place] [address] Sep, [facility] [address] [id number] [address] [place] [address], [place] [address] Sep, [facility] [address] [id number] [address] [place] [address], [place] [address] Sep, [facility] [address] [id number] [address] [place] [address], [place] [address] Aug, [facility] [address] [id number] [address] [place] [address], [place] [address] Aug, [facility] [address] [id number] [address] [place] [address], [place] [address] Aug, [facility] [address] [id number] [address] [place] [address], [place] [address] Jun, [facility] [address] [id number] [address] [place] [address], [place] [address] Jun, [facility] [address] [id number] [address] [place] [address], [place] [address] Jun, [facility] [address] [id number] [address] [place] [address], [place] [address] Jun, [facility] [address] [id number] [address] [place] [address], [place] [address] Jun, [facility] [address] [id number] [address] [place] [address], [place] [address] Jun, [facility] [address] [id number] [address] [place] [address], [place] [address] Jun, [facility] [address] [id number] [address] [place] [address], [place] [address] Jun, [facility] [address] [id number] [address] [place] [address], [place] [address] Jun, [facility] [address] [id number] [address] [place] [address], [place] [address] Jun, [facility] [address] [id number] [address] [place] [address], [place] [address] May, [facility] [address] [id number] [address] [place] [address], [place] [address] May, [facility] [address] [id number] [address] [place] [address], [place] [address] May, [facility] [address] [id number] [address] [place] [address], [place] [address] May, [facility] [address] [id number] [address] [place] [address], [place] [address] Apr, [facility] [address] [id number] [address] [place] [address], [place] [address] Apr, [facility] [address] [id number] [address] [place] [address], [place] [address] Apr, [facility] [address] [id number] [address] [place] [address], [place] [address] Apr, [facility] [address] [id number] [address] [place] [address], [place] [address] Apr, [facility] [address] [id number] [address] [place] [address], [place] [address] Apr, [facility] [address] [id number] [address] [place] [address], [place] [address] Apr, [facility] [address] [id number] [address] [place] [address], [place] [address] Apr, [facility] [address] [id number] [address] [place] [address], [place] [address] Mar, [facility] [address] [id number] [address] [place] [address], [place] [address] Mar, [facility] [address] [id number] [address] [place] [address], [place] [address] Mar, [facility] [address] [id number] [address] [place] [address], [place] [address] Mar, [facility] [address] [id number] [address] [place] [address], [place] [address] Mar, [facility] [address] [id number] [address] [place] [address], [place] [address] Feb, [facility] [address] [id number] [address] [place] [address], [place] [address] Feb, [facility] [address] [id number] [address] [place] [address], [place] [address] Feb, [facility] [address] [id number] [address] [place] [address], [place] [address] Feb, [facility] [address] [id number] [address] [place] [address], [place] [address] Feb, [facility] [address] [id number] [address] [place] [address], [place] [address] Jan, [facility] [address] [id number] [address] [place] [address], [place] [address] Jan, [facility] [address] [id number] [address] [place] [address], [place] [address] Nov, [facility] [address] [id number] [address] [place] [address], [place] [address] Nov, [facility] [address] [id number] [address] [place] [address] Nov, [facility] [address] [id number] [address] [place] [address], [place] [address] Nov, [facility] [address] [id number] [address] [place] [address], [place] [address] October, [facility] [address] [id number] [address] [place] [address], [place] [address] Sep, [facility] [address] [id number] [address] [place] [address], [place] [address] Aug, [facility] [address] [id number] [address] [place] [address], [place] [address] Aug, [facility] [address] [id number] [address] [place] [address], [place] [address] Aug, [facility] [address] [id number] [address] [place] [address], [place] [address] Aug, [facility] [address] [id number] [address] [place] [address], [place] [address] Jul, [facility] [address] [id number] [address] [place] [address], [place] [address] Jun, [facility] [address] [id number] [address] [place] [address], [place] [address] Jun, [facility] [address] [id number] [address] [place] [address], [place] [address] May, [facility] [address] [id number] [address] [place] [address], [place] [address] May, [facility] [address] [id number] [address] [place] [address], [place] [id number] Mar, [facility] [address] [id number] [address] [place] [address], [place] [address] Mar, [facility] [address] [id number] [address] [place] [address], [place] [address] Mar, [facility] [address] [id number] [address] [place] [address], [place] [address] Mar, [facility] [address] [id number] [address] [place] [address], [place] [address] Mar, [facility] [address] [id number] [address] [place] [address], [place] [address] Mar, [facility] [address] [id number] [address] [place] [address], [place] [address] Mar, [facility] [address] [id number] [address] [place] [address], [place] [address] 23 Mar, 2011 [facility] [address] [id number] [address] [place] [address], [place] [address] 22 Mar, 2011 [facility] [address] [id number] [address] [place] [address], [place] [address] 20 Mar, 2011 [facility] [address] [id number] [address] [place] [address], [place] [address] 20 Mar, 2011 [facility] [address] [id number] [address] [place] [address], [place] [address] 17 Mar, 2011 [facility] [address] [id number] [address] [place] [address], [place] [address] 17 Mar, 2012 [facility] [address] [id number] [address] [place] [address], [place] [address] 15 Mar, 2012 [facility] [address] [id number] [address] [place] [address], [place] [address] 15 Mar, 2012 [facility] [address] [id number] [address] [place] [address], [place] [address] 15 Mar, 2012 [facility] [address] [id number] [address] [place] [address], [place] [address] 15 Mar, 2012 [facility] [address] [id number] [address] [place] [address], [place] [address] Mar, [facility] [address] [id number] [address] [place] [address], [place] [address] 11 Mar, 2012 [facility] [address] [id number] [address] [place] [address], [place] [address] 08 Mar, 2012 [facility] [address] [id number] [address] [place] [address], [place] [address] 08 Mar, 2012 [facility] [address] [id number] [address] [place] [address], [place] [address] 03 Mar, 2012 [facility] [address] [id number] [address] [place] [address] 01 Mar, 2012 [facility] [address] [id number] [address] [place] [address], [place] [address] 19 Sep, 2011 [facility] [address] [id number] [address] [place] [address], [place] [address] 18 Sep, 2011 [facility] [address] [id number] [address] [place] [address], [place] [address] 17 Feb, 2011 [facility] [address] [id number] [address] [place] [address], [place] [address] 14 Feb, 2011 [facility] [address] [id number] [address] [place] [address], [place] [address] 14 Feb, 2011 [facility] [address] [id number] [address] [place] [address], [place] [address] 12 Feb, 2011 [facility] [address] [id number] [address] [place] [address], [place] [address] 10 Feb, 2011 [facility] [address] [id number] [address] [place] [address], [place] [address] 31 Jan, 2012 [facility] [address] [id number] [address] [place] [address], [place] [address] 30 Jan, 2012 [facility] [address] [id number] [address] [place] [address], [place] [address] 22 Jan, 2012 [facility] [address] [id number] [address] [place] [address], [place] [address] 20 Jan, 2012 [facility] [address] [id number] [address] [place] [address], [place] [address] 17 Jan, 2012 [facility] [address] [id number] [address] [place] [address], [place] [address] 17 Jan, 2012 [facility] [address] [id number] [address] [place] [address], [place] [address] 17 Jan, 2012 [facility] [address] [id number] [address] [place] [address], [place] [address] 16 Jan, 2012 [facility] [address] [id number] [address] [place] [address], [place] [address] 13 Jan, 2012 [facility] [address] [id number] [address] [place] [address], [place] [address] 07 Jan, 2012 [facility] [address] [id number] [address] [place] [address], [place] [address] 26 Dec, 2011 [facility] [address] [id number] [address] [place] [address], [place] [address] 24 Dec, 2011 [facility] [address] [id number] [address] [place] [address], [place] [address] 23 Dec, 2011 [facility] [address] [id number] [address] [place] [address], [place] [address] 19 Dec, 2011 [facility] [address] [id number] [address] [place] [address], [place] [address] 18 Dec, 2011 [facility] [address] [id number] [address] [place] [address], [place] [address] 17 Dec, 2011 [facility] [address] [id number] [address] [place] [address], [place] [address] 16 Dec, 2011 [facility] [address] [id number] [address] [place] [address], [place] [address] 14 Dec, 2011 [facility] [address] [id number] [address] [place] [address], [place] [address] Dec, [facility] [address] [id number] [address] [place] [address], [place] [address] Dec, [facility] [address] [id number] [address] [place] [address], [place] [address] Dec, [facility] [address] [id number] [address] [place] [address], [place] [address] Nov, [facility] [address] [id number] [address] [place] [address], [place] [address] Nov, [facility] [address] [id number] [address] [place] [address], [place] [address] Nov, [facility] [address] [facility] [id number] [address] [place] [phone] Nov, [facility] [address] [facility] [id number] [address] [place] [phone] Nov, [facility] [address] [facility] [id number] [address] [place] [phone] Nov, [facility] [address] [facility] [id number] [address] [place] [phone] Nov, [facility] [address] [facility] [id number] [address] [place] [phone] Nov, [facility] [address] [facility] [id number] [address] [place] [phone] Nov, [facility] [address] [facility] [id number] [address] [place] [id number] Nov, [facility] [address] [facility] [id number] [address] [place] [id number] October, IMMUNIZATIONS No Known Immunizations SOCIAL HISTORY [...]
--- OUTSIDE RECORDS SUMMARY | 2019-12-11 17:58 | XMS REPORT ---
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 Name Role Phone Migration, Doctor Unavailable Unavailable PROBLEMS Type Condition ICD9-CM Code RXT19-LL Code Onset Dates Condition S tatus SNOMED Code Problem Abnormal glucose R73.09 Active 102 421130 Problem Hyperlipidemia LDL goal <100 E78.5 A ctive 34818461 Problem Elevated liver enzymes R74.8 Active 832493445 Problem Tremor, hereditary, benign G25.0 Act caitlin [id number] Problem Major depressive disorder, recurrent episode, moderate F33.1 Active 036263927 Problem Reflux gastritis K29.60 Active 729 22899 Problem Other chronic pain G89.29 Active 8 7517931 Problem Constipation by delayed colonic transit K59.01 Active 75280032 Problem Essential hypertension I10 Active 69460731 Problem Seizure disorder G40.909 Active 128 494370 Problem Other chronic pain G89.29 Active 8 1333629 Problem Moderate persistent asthma without complication J4 5.40 Active 473113952 Problem Primary insomnia F51.01 Active 397 2004 Problem Intractable chronic migraine without aura and wi th status migrainosus G43.711 Active 434804040 Problem Moderate persistent asthma with exacerbation J45.4 1 Active 624660865 Problem Irritable bowel syndrome with constipation K58.1 Active 033617358 Problem Lumbago with sciatica, left side M54.42 Active 346149453 Problem Lumbago with sciatica, right side M54.41 Active 373100213189152 Problem History of hypokalemia Z86.39 Active 809529760 Problem Chronic migraine without aura with statu s migrainosus, not intractable G43.701 Active 347017758 Problem Chronic fatigue R53.82 Active 8422 9001 Problem Irritable bowel K58.9 Active 1074 3008 Problem Hypokalemia E87.6 Active 75957380 Problem Mood disorder F39 Active 654770 05 Problem RLS (restless legs syndrome) G25.81 A ctive 45278241 Problem Aneurysm I72.9 Active 97273178 Problem Migraine with aura and without status migrainosu s, not intractable G43.109 Active 9697139 ALLERGIES No Information ENCOUNTERS Encounter Location Date Diagnosis [place] [address] [place] [id number] [place] [address] Nov, [place] [address] [address] 08 Nov, 2019 Seizure disorder G40.909 and Hypokalemia E87.6 [place] [address] [address] 05 Nov, 2019 Electrolyte imbalance E87.8 [place] [address] [address] Nov, Electrolyte imbalance E87.8 [place] [address] [address] October, Diarrhea, unspecified R19.7 ; Nausea with vomiting, unspecified R11.2 and Chronic fatigue R53.82 [place] [address] [address] October, [place] [address] [address] October, Seizure disorder G40.909 and Tremor, hereditary, benign G25.0 [place] [address] [address] Sep, Primary insomnia F51.01 ; Ot her chronic pain G89.29 and Pain in right shoulder M25.511 [facility] [place] [address] [address] 08 Sep, 2019 Bilious vomiting with nausea R11.14 [facility] [address] [place] [id number] [place] [id number] 07 Aug, 2019 Influenza A J10.1 [facility] [place] [address] [address] Aug, [facility] [place] [address] [place] [address] Aug, Tinea pedis of both feet B35 .3 and Migraine with aura and without status migrainosus, not intractable G43.109 [facility] [place] [address] [place] [address] Jul, [facility] [address] [place] [id number] [place] [address] Jul, Rib pain on left side R07.81 [place] [address] [address] 10 Jul, 2019 Seizure disorder G40.909 and Aneurysm I72.9 [place] [address] [address] Jul, [place] [address] [address] Jul, Seizure disorder G40.909 ; A neurysm I72.9 ; Migraine with aura and without status migrainosus, not intractable G43.109 and History of hypokalemia Z86.39 [facility] [place] [address] [address] 04 Jul, 2019 [place] [address] [address] Jun, [place] [address] [address] Jun, Seizures R56.9 ; Migraine wi th aura and without status migrainosus, not intractable G43.109 ; Other chronic pain G89.29 and Pain in right shoulder M25.511 [place] [address] [place] [id number] [place] [address] Jun, [place] [address] [address] May, Primary insomnia F51.01 ; In tractable chronic migraine without aura and with status migrainosus G43.711 and Aneurysm I72.9 [place] [address] [id number] [address] [place] [address] Apr, RLS (restless legs syndrome) G25.81 and Mood disorder F39 [place] [address] [id number] [address] [place] [address] Apr, [place] [address] [id number] [address] [place] [address] Mar, Other chronic pain G89.29 an d Pain in right shoulder M25.511 [place] [address] [id number] [address] [place] [address] Mar, Acute left ankle pain M25.57 2 [place] [address] [id number] [address] [place] [address] Mar, [place] [address] [id number] [address] [place] [address] Mar, Acute left ankle pain M25.57 2 [place] [address] [id number] [address] [place] [address] Mar, Major depressive disorder, r ecurrent episode, moderate F33.1 [place] [address] [id number] [address] [place] [address] Mar, Major depressive disorder, r ecurrent episode, moderate F33.1 ; Lumbago with sciatica, left side M54.42 and Lumbago with sciatica, right side M54.41 [place] [address] [id number] [address] [place] [address] Mar, [place] [address] [facility] [id number] [address] [place] [address] Mar, [place] [address] [id number] [address] [place] [address] Mar, Major depressive disorder, r ecurrent episode, moderate F33.1 ; Lumbago with sciatica, left side M54.42 and Lumbago with sciatica, right side M54.41 [place] [address] [place] [id number] [place] [address] Feb, Viral gastroenteritis A08.4 [facility] [address] [place] [id number] [place] [address] Feb, Nausea and vomiting, intract ability of vomiting not specified, unspecified vomiting type R11.2 [place] [address] [place] [id number] [place] [phone] Feb, [place] [address] [address] Feb, [place] [address] [place] [id number] [place] [address] Feb, C. difficile colitis A04.72 ; Mood disorder F39 ; Lumbago with sciatica, left side M54.42 ; Lumbago with sciatica, right side M54.41 and Other chronic pain G89.29 [place] [address] [address] Jan, [facility] [address] [place] [id number] [place] [address] Jan, Nausea & vomiting R11.2 [place] [address] [place] [id number] [place] [address] Dec, Irritable bowel syndrome wit h constipation K58.1 ; Other chronic pain G89.29 and Pain in right shoulder M25.511 [facility] [place] [address] [place] [id number] [place] [address] Dec, Generalized abdominal pain R 10.84 and Nausea and vomiting, intractability of vomiting not specified, unspecified vomiting type R11.2 [facility] [address] [place] [id number] [place] [address] Dec, [place] [address] [facility] [id number] [address] [place] [address] Dec, Dysuria R30.0 and Irritable bowel K58.9 [facility] [address] [facility] [id number] [address] Sep, Chronic nausea R11.0 [facility] [place] [address] [place] [id number] [place] [address] Sep, [facility] [place] [address] [place] [id number] [place] [address] Sep, Viral gastroenteritis A08.4 [facility] [address] [facility] [id number] [address] [place] [address] Aug, Headache R51 ; Viral upper r espiratory tract infection J06.9 and Nausea R11.0 [facility] [address] [place] [id number] [place] [address] Jun, Reflux gastritis K29.60 [facility] [place] [address] [place] [id number] [place] [address] Jun, [facility] [place] [address] [address] May, [facility] [place] [address] [address] May, [facility] [place] [address] [address] Apr, Bowel habit changes R19.4 an d Acute cystitis without hematuria N30.00 [facility] [place] [address] [facility] [id number] [address] [place] [address] Apr, Pain in right shoulder M25.5 11 [facility] [place] [address] [place] [id number] [place] [address] Apr, [facility] [place] [address] [place] [id number] [place] [address] Mar, [facility] [place] [address] [id number] [address] [place] [phone] Mar, [facility] [place] [address] [id number] [address] [place] [address] Mar, [facility] [place] [address] [id number] [address] [place] [address] Mar, [facility] [place] [address] [id number] [address] [place] [address] 14 Feb, 2018 [facility] [place] [address] [id number] [address] [place] [address] Feb, [facility] [place] [address] [id number] [address] [place] [address] 05 Feb, 2018 [facility] [place] [address] [id number] [address] [place] [address] Jan, [facility] [place] [address] [id number] [address] [place] [address] Dec, [facility] [place] [address] [id number] [address] [place] [address] Dec, Other chronic pain G89.29 ; Pain in right shoulder M25.511 and Liver enzyme elevation R74.8 [facility] [place] [address] [id number] [address] [place] [address] Nov, Other chronic pain G89.29 an d Pain in right shoulder M25.511 [facility] [place] [address] [id number] [address] [place] [address] October, [facility] [address] [facility] [id number] [address] [place] [address] October, Right shoulder pain, unspeci fied chronicity M25.511 [facility] [place] [address] [id number] [address] [place] [address] Aug, Elevated liver enzymes R74.8 and Hyperlipidemia LDL goal <100 E78.5 [facility] [place] [address] [id number] [address] [place] [address] Aug, [place] [address] [place] [id number] [place] [address] Jul, [place] [address] [place] [id number] [place] [address] Jul, Intractable chronic migraine without aura and with status migrainosus G43.711 ; Fever, unspecified fever cause R50.9 and Elevated liver enzymes R74.8 [place] [address] [place] [id number] [place] [address] Jun, Difficulty urinating R39.198 and Moderate persistent asthma with exacerbation J45.41 [place] [address] [place] [id number] [place] [address] Jun, [place] [address] [address] Jun, Moderate persistent asthma w ith exacerbation J45.41 [place] [address] [place] [id number] [place] [address] May, Elevated liver enzymes R74.8 and Hyperlipidemia LDL goal <100 E78.5 [place] [address] [address] May, Elevated lipids E78.5 [place] [address] [place] [id number] [place] [address] Apr, Elevated liver enzymes R74.8 [place] [address] [place] [id number] [place] [address] Apr, Elevated liver enzymes R74.8 [place] [address] [place] [id number] [place] [address] Apr, Superior glenoid labrum lesi on of right shoulder, subsequent encounter S43.431D [place] [address] [place] [id number] [place] [address] Apr, Hypokalemia E87.6 ; Major de pressive disorder, recurrent episode, moderate F33.1 ; Other abnormalities of breathing R06.89 and Dyspnea, unspecified R06.00 [facility] [address] [facility] [id number] [address] [place] [address] Mar, Moderate persistent asthma w [facility] complication J45.40 [facility] [place] [address] [facility] [id number] [address] [place] [address] Mar, Impingement syndrome of righ t shoulder M75.41 [facility] [place] [address] [facility] [id number] [address] [place] [address] Jan, [place] [address] [place] [id number] [place] [address] Jan, Chronic migraine without aur a with status migrainosus, not intractable G43.701 ; Essential hypertension I10 ; Irritable bowel K58.9 ; Primary insomnia F51.01 and Hypokalemia E87.6 [facility] [place] [address] [facility] [id number] [address] [place] [id number] Dec, [facility] [place] [address] [facility] [id number] [address] [place] [address] Dec, Pain in right shoulder M25.5 11 [facility] [place] [address] [facility] [id number] [address] [place] [id number] Dec, Essential hypertension I10 [facility] [place] [address] [facility] [id number] [address] [place] [phone] Dec, [facility] [place] [address] [facility] [id number] [address] [place] [address] Nov, Essential hypertension I10 [facility] [place] [address] [facility] [id number] [address] [place] [address] 14 Nov, 2016 Pain in right shoulder M25.5 11 [facility] [place] [address] [facility] [id number] [address] [place] [address] 13 Nov, 2016 Pain in right shoulder M25.5 11 [facility] [place] [address] [facility] [id number] [address] [place] [phone] October, [facility] [place] [address] [id number] [address] [place] [address] October, Pain in right shoulder M25.5 11 [facility] [place] [address] [facility] [id number] [address] [place] [address] Sep, Arm pain, right M79.601 [facility] [place] [address] [facility] [id number] [address] [place] [address] Sep, [facility] [place] [address] [place] [id number] [place] [address] Sep, Abnormal glucose R73.09 and Elevated lipids E78.5 [place] [address] [facility] [id number] [address] [place] [address] Sep, Abnormal glucose R73.09 and Elevated lipids E78.5 [place] [address] [place] [id number] [place] [address] Aug, [place] [address] [place] [id number] [place] [address] Aug, [place] [address] [place] [id number] [place] [address] Aug, [place] [address] [place] [id number] [place] [address] Aug, Constipation by delayed colo reny transit K59.01 ; Hypokalemia E87.6 ; Irritable bowel K58.9 ; Essential hypertension I10 ; Pain in right shoulder M25.511 ; Seizure disorder G40.909 and Screening for lipid disorders Z13.220 [place] [address] [place] [id number] [place] [address] 28 Jul, 2016 Other chronic pain G89.29 an d Pain in right shoulder M25.511 [facility] [place] [address] [place] [id number] [place] [address] 14 Jul, 2016 Biceps muscle strain, right, subsequent encounter S46.111D [facility] [address] [facility] [id number] [address] [place] [address] Jul, Arm pain, right M79.601 [facility] [place] [address] [facility] [id number] [address] [place] [address] Jun, [facility] [place] [address] [place] [id number] [place] [address] Jun, Acute non-recurrent frontal sinusitis J01.10 [place] [address] [facility] [id number] [address] [place] [address] May, Generalized abdominal pain R 10.84 ; Urinary tract infection without hematuria, site unspecified N39.0 ; Hypokalemia E87.6 ; Essential hypertension I10 ; Screening for lipid disorders Z13.220 ; Seizure R56.9 and Low back pain M54.5 [place] [address] [place] [id number] [place] [address] Apr, [facility] [address] [facility] [id number] [address] [place] [address] Feb, [place] [address] [address] Jan, [place] [address] [place] [id number] [place] [address] Dec, Constipation by delayed colo reny transit K59.01 ; Hypokalemia E87.6 ; Irritable bowel K58.9 and Nausea R11.0 [facility] [address] [facility] [id number] [address] [place] [address] Dec, Generalized abdominal pain R 10.84 [place] [address] [facility] [id number] [address] [place] [address] 24 Nov, 2015 [facility] [address] [facility] [id number] [address] [place] [id number] 14 Aug, 2015 Acute bronchitis J20.9 [place] [address] [address] 14 Aug, 2015 [place] [address] [address] 08 Aug, 2015 Low back pain M54.5 ; Hypoka lemia E87.6 ; Chronic migraine without aura with status migrainosus, not intractable G43.701 ; Tremor, hereditary, benign G25.0 ; Irritable bowel K58.9 ; Essential hypertension I10 and Seizure R56.9 [place] [address] [address] 07 Aug, 2015 [place] [address] [address] 09 Jul, 2015 [place] [address] [address] 03 Jul, 2015 Low back pain M54.5 ; Hypoka lemia E87.6 ; Chronic migraine without aura with status migrainosus, not intractable G43.701 ; Tremor, hereditary, benign G25.0 ; Irritable bowel K58.9 ; Essential hypertension I10 and Seizure R56.9 [place] [address] [address] 20 Jun, 2015 Hypokalemia E87.6 [place] [address] [address] 15 Jun, 2015 ADD (attention deficit disor dionicio) without hyperactivity F90.0 ; Generalized anxiety disorder F41.1 and Major depressive disorder, recurrent episode, moderate F33.1 [place] [address] [address] 13 Jun, 2015 Low back pain M54.5 ; Hypoka lemia E87.6 ; Chronic migraine without aura with status migrainosus, not intractable G43.701 ; Tremor, hereditary, benign G25.0 ; Irritable bowel K58.9 ; Essential hypertension I10 and Seizure R56.9 [place] [address] [address] Jun, [place] [address] [facility] [id number] [address] [place] [address] May, [place] [address] [facility] [id number] [address] [place] [address] May, Low back pain M54.5 ; Hypoka lemia E87.6 ; Chronic migraine without aura with status migrainosus, not intractable G43.701 ; Tremor, hereditary, benign G25.0 ; Irritable bowel K58.9 ; Essential hypertension I10 ; Seizure R56.9 and Tinea capitis B35.0 [place] [address] [place] [id number] [place] [address] May, Low back pain M54.5 ; Hypoka lemia E87.6 ; Chronic migraine without aura with status migrainosus, not intractable G43.701 ; Tremor, hereditary, benign G25.0 ; Irritable bowel K58.9 ; Essential hypertension I10 ; Seizure R56.9 ; Otitis media, left H66.92 and Dysuria 788.1 [place] [address] [place] [id number] [address] [place] [address] 14 May, 2015 Tooth pain K08.8 [place] [address] [place] [id number] [place] [address] May, [place] [address] [place] [id number] [address] [place] [address] May, Low back pain M54.5 ; Hypoka lemia E87.6 ; Chronic migraine without aura with status migrainosus, not intractable G43.701 ; Tremor, hereditary, benign G25.0 ; Irritable bowel K58.9 and Essential hypertension I10 [place] [address] [facility] [id number] [address] [place] [address] Apr, Low back pain M54.5 ; [place] lemia E87.6 ; Chronic migraine without aura with status migrainosus, not intractable G43.701 ; Tremor, hereditary, benign G25.0 and Irritable bowel K58.9 [facility], [place] [address] [facility] [id number] [address] [place] [phone] Apr, Low back pain M54.5 [facility], [place] [address] [facility] [id number] [address] [place] [phone] Mar, [facility], [place] [address] [facility] [id number] [address] [place] [id number] Mar, Irritable bowel syndrome wit h diarrhea K58.0 [facility], [place] [address] [facility] [id number] [address] [place] [phone] Mar, [facility], [place] [address] [place] [id number] [address] [place] [phone] Feb, [facility], [place] [address] [place] [id number] [address] [place] [phone] Feb, [facility], [place] [address] [place] [id number] [place] [phone] Feb, Irritable bowel syndrome 564 .1 ; Lumbago 724.2 and Cervical pain (neck) 723.1 [place] [address] [address] [place] [id number] [place] [phone] Dec, Major depressive disorder, r ecurrent episode, moderate 296.32 and Generalized anxiety disorder 300.02 [facility], [place] [address] [place] [id number] [address] [place] [phone] Nov, [facility], [place] [address] [place] [id number] [address] [place] [phone] Nov, Major depressive disorder, r ecurrent episode, moderate 296.32 [place] [address] [address] [place] [id number] [address] [place] [id number] Nov, Constipation 564.00 ; Nausea & vomiting 787.01 and Abdominal pain 789.00 [facility] [place] [address] [place] [id number] [address] [place] [id number] Nov, [facility] [place] [address] [id number] [address] [place] [address], [place] [address] October, [facility] [address] [id number] [address] [place] [address], [place] [address] October, [facility] [address] [id number] [address] [place] [address], [place] [address] October, [facility] [address] [id number] [address] [place] [address], [place] [address] October, [facility] [address] [id number] [address] [place] [address], [place] [address] Sep, Dysuria 788.1 [facility] [address] [id number] [address] [place] [address], [place] [address] Sep, [facility] [address] [id number] [address] [place] [address], [place] [address] Sep, [facility] [address] [id number] [address] [place] [address], [place] [address] Sep, [facility] [address] [id number] [address] [place] [address], [place] [address] Sep, [facility] [address] [id number] [address] [place] [address], [place] [address] Aug, [facility] [address] [id number] [address] [place] [address], [place] [address] Aug, [facility] [address] [id number] [address] [place] [address], [place] [address] Aug, [facility] [address] [id number] [address] [place] [address], [place] [address] Aug, [facility] [address] [id number] [address] [place] [address], [place] [address] Aug, [facility] [address] [id number] [address] [place] [address], [place] [address] Aug, [facility] [address] [id number] [address] [place] [address], [place] [address] Aug, [facility] [address] [id number] [address] [place] [address], [place] [address] Aug, [facility] [address] [id number] [address] [place] [address], [place] [address] Aug, [facility] [address] [id number] [address] [place] [address], [place] [address] Aug, [facility] [address] [id number] [address] [place] [address], [place] [address] Jun, [facility] [address] [id number] [address] [place] [address], [place] [address] Jun, [facility] [address] [id number] [address] [place] [address], [place] [address] Jun, [facility] [address] [id number] [address] [place] [address], [place] [address] Jun, [facility] [address] [id number] [address] [place] [address], [place] [address] May, [facility] [address] [id number] [address] [place] [address], [place] [address] May, [facility] [address] [id number] [address] [place] [address], [place] [address] May, [facility] [address] [id number] [address] [place] [address], [place] [address] May, [facility] [address] [id number] [address] [place] [address], [place] [address] May, [facility] [address] [id number] [address] [place] [address], [place] [address] May, [facility] [address] [id number] [address] [place] [address], [place] [address] May, [facility] [address] [id number] [address] [place] [address], [place] [address] May, [facility] [address] [id number] [address] [place] [address], [place] [address] 30 Mar, 2014 [facility] [address] [id number] [address] [place] [address], [place] [address] 30 Mar, 2014 [facility] [address] [id number] [address] [place] [address], [place] [address] Mar, [facility] [address] [id number] [address] [place] [address], [place] [address] Mar, [facility] [address] [id number] [address] [place] [address], [place] [address] Mar, [facility] [address] [id number] [address] [place] [address], [place] [address] Mar, [facility] [address] [id number] [address] [place] [address], [place] [address] Mar, [facility] [address] [id number] [address] [place] [address], [place] [address] Mar, [facility] [address] [id number] [address] [place] [address], [place] [address] Mar, [facility] [address] [id number] [address] [place] [address], [place] [address] Mar, [facility] [address] [id number] [address] [place] [address], [place] [address] Mar, [facility] [address] [id number] [address] [place] [address], [place] [address] Mar, [facility] [address] [id number] [address] [place] [address], [place] [address] 24 Feb, 2014 [facility] [address] [id number] [address] [place] [address], [place] [address] 24 Feb, 2014 [facility] [address] [id number] [address] [place] [address], [place] [address] Feb, [facility] [address] [id number] [address] [place] [address], [place] [address] Feb2013 [facility] [address] [id number] [facility] [place] [address] Feb, [facility] [address] [id number] [facility] [place] [address] Feb, [facility] [address] [id number] [facility] [place] [address] Jan, [facility] [address] [id number] [address] [place] [address], [place] [address] Jan, [facility] [address] [id number] [address] [place] [address], [place] [address] Jan, [facility] [address] [id number] [address] [place] [address], [place] [address] Jan, [facility] [address] [id number] [address] [place] [address], [place] [address] Jan, [facility] [address] [id number] [address] [place] [address], [place] [address] Jan, [facility] [address] [id number] [address] [place] [address], [place] [address] Jan, [facility] [address] [id number] [address] [place] [address], [place] [address] Jan, [facility] [address] [id number] [address] [place] [address], [place] [address] Dec, [facility] [address] [id number] [address] [place] [address], [place] [address] Dec, [facility] [address] [id number] [address] [place] [address], [place] [address] Dec, [facility] [address] [id number] [address] [place] [address], [place] [address] Dec, [facility] [address] [id number] [address] [place] [address], [place] [address] Dec, [facility] [address] [id number] [address] [place] [address], [place] [address] Dec, [facility] [address] [id number] [facility] [place] [address] Dec, [facility] [address] [id number] [address] [place] [address], [place] [address] Dec, [facility] [address] [id number] [address] [place] [address], [place] [address] October, [facility] [address] [id number] [address] [place] [address], [place] [address] October, [facility] [address] [id number] [address] [place] [address], [place] [address] Sep, [facility] [address] [id number] [address] [place] [address], [place] [address] Sep, [facility] [address] [id number] [address] [place] [address], [place] [address] Sep, [facility] [address] [id number] [address] [place] [address], [place] [address] Sep, [facility] [address] [id number] [address] [place] [address], [place] [address] Sep, [facility] [address] [id number] [address] [place] [address], [place] [address] Sep, [facility] [address] [id number] [address] [place] [address], [place] [address] Sep, [facility] [address] [id number] [address] [place] [address], [place] [address] Sep, [facility] [address] [id number] [address] [place] [address], [place] [address] Sep, [facility] [address] [id number] [address] [place] [address], [place] [address] Sep, [facility] [address] [id number] [address] [place] [address], [place] [address] Sep, [facility] [address] [id number] [address] [place] [address], [place] [address] Sep, [facility] [address] [id number] [address] [place] [address], [place] [address] Aug, [facility] [address] [id number] [address] [place] [address], [place] [address] Aug, [facility] [address] [id number] [address] [place] [address], [place] [address] Aug, [facility] [address] [id number] [address] [place] [address], [place] [address] Jun, [facility] [address] [id number] [address] [place] [address], [place] [address] Jun, [facility] [address] [id number] [address] [place] [address], [place] [address] Jun, [facility] [address] [id number] [address] [place] [address], [place] [address] Jun, [facility] [address] [id number] [address] [place] [address], [place] [address] Jun, [facility] [address] [id number] [address] [place] [address], [place] [address] Jun, [facility] [address] [id number] [address] [place] [address], [place] [address] Jun, [facility] [address] [id number] [address] [place] [address], [place] [address] Jun, [facility] [address] [id number] [address] [place] [address], [place] [address] Jun, [facility] [address] [id number] [address] [place] [address], [place] [address] Jun, [facility] [address] [id number] [address] [place] [address], [place] [address] May, [facility] [address] [id number] [address] [place] [address], [place] [address] May, [facility] [address] [id number] [address] [place] [address], [place] [address] May, [facility] [address] [id number] [address] [place] [address], [place] [address] May, [facility] [address] [id number] [address] [place] [address], [place] [address] Apr, [facility] [address] [id number] [address] [place] [address], [place] [address] Apr, [facility] [address] [id number] [address] [place] [address], [place] [address] Apr, [facility] [address] [id number] [address] [place] [address], [place] [address] Apr, [facility] [address] [id number] [address] [place] [address], [place] [address] Apr, [facility] [address] [id number] [address] [place] [id number] Apr, [facility] [address] [id number] [address] [place] [address], [place] [address] Apr, [facility] [address] [id number] [address] [place] [address] Apr, [facility] [address] [id number] [address] [place] [address] Mar, [facility] [address] [id number] [address] [place] [address] Mar, [facility] [address] [id number] [address] [place] [address], [place] [address] Mar, [facility] [address] [id number] [address] [place] [address] Mar, [facility] [address] [id number] [address] [place] [address] Mar, [facility] [address] [id number] [address] [place] [address] 23 Feb, 2013 [facility] [address] [id number] [address] [place] [address], [place] [address] 11 Feb, 2013 [facility] [address] [id number] [address] [place] [address], [place] [address] 05 Feb, 2013 [facility] [address] [id number] [address] [place] [address], [place] [address] 05 Feb, 2013 [facility] [address] [id number] [address] [place] [address], [place] [address] 04 Feb, 2013 [facility] [address] [id number] [address] [place] [address], [place] [address] Jan, [facility] [address] [id number] [address] [place] [address], [place] [address] Jan, [facility] [address] [id number] [address] [place] [address], [place] [address] Nov, [facility] [address] [id number] [address] [place] [address], [place] [address] Nov, [facility] [address] [id number] [address] [place] [address], [place] [address] Nov, [facility] [address] [id number] [address] [place] [address], [place] [address] Nov, [facility] [address] [id number] [address] [place] [address], [place] [address] October, [facility] [address] [id number] [address] [place] [address], [place] [address] Sep, [facility] [address] [id number] [address] [place] [address], [place] [address] Aug, [facility] [address] [id number] [address] [place] [address], [place] [address] 26 Aug, 2012 [facility] [address] [id number] [address] [place] [address], [place] [address] 16 Aug, 2012 [facility] [address] [id number] [address] [place] [address], [place] [address] Aug, [facility] [address] [id number] [address] [place] [address], [place] [address] Jul, [facility] [address] [id number] [address] [place] [address], [place] [address] Jun, [facility] [address] [id number] [address] [place] [address], [place] [address] Jun, [facility] [address] [id number] [address] [place] [address], [place] [address] May, [facility] [address] [id number] [address] [place] [address], [place] [address] May, [facility] [address] [id number] [address] [place] [address], [place] [id number] Mar, [facility] [address] [id number] [address] [place] [address], [place] [address] Mar, [facility] [address] [id number] [address] [place] [address], [place] [address] Mar, [facility] [address] [id number] [address] [place] [address], [place] [address] Mar, [facility] [address] [id number] [address] [place] [address], [place] [address] Mar, [facility] [address] [id number] [address] [place] [address], [place] [address] Mar, [facility] [address] [id number] [address] [place] [address], [place] [address] Mar, [facility] [address] [id number] [address] [place] [address], [place] [address] Mar, [facility] [address] [id number] [address] [place] [address], [place] [address] Mar, [facility] [address] [id number] [address] [place] [address], [place] [address] Mar, [facility] [address] [id number] [address] [place] [address], [place] [address] 20 Mar, 2012 [facility] [address] [id number] [address] [place] [address], [place] [address] 17 Mar, 2012 [facility] [address] [id number] [address] [place] [address], [place] [address] 17 Mar, 2012 [facility] [address] [id number] [address] [place] [address], [place] [address] 15 Mar, 2012 [facility] [address] [id number] [address] [place] [address], [place] [address] 15 Mar, 2012 [facility] [address] [id number] [address] [place] [address], [place] [address] 15 Mar, 2012 [facility] [address] [id number] [address] [place] [address], [place] [address] 15 Mar, 2012 [facility] [address] [id number] [address] [place] [id number] Mar, [facility] [address] [id number] [address] [place] [address], [place] [address] Mar, [facility] [address] [id number] [address] [place] [id number] 08 Mar, 2012 [facility] [address] [id number] [address] [place] [id number] 08 Mar, 2012 [facility] [address] [id number] [address] [place] [id number] 03 Mar, 2012 [facility] [address] [id number] [address] [place] [address], [place] [address] Mar, [facility] [address] [id number] [address] [place] [id number] 19 Feb, 2012 [facility] [address] [id number] [address] [place] [id number] 18 Feb, 2012 [facility] [address] [id number] [address] [place] [address], [place] [address] 17 Feb, 2011 [facility] [address] [id number] [address] [place] [address], [place] [id number] 14 Feb, 2011 [facility] [address] [id number] [address] [place] [address], [place] [id number] 14 Feb, 2011 [facility] [address] [id number] [address] [place] [address], [place] [id number] 12 Feb, 2011 [facility] [address] [id number] [address] [place] [address], [place] [id number] 10 Feb, 2012 [facility] [address] [id number] [address] [place] [address], [place] [id number] 31 Jan, 2012 [facility] [address] [id number] [address] [place] [address], [place] [id number] 30 Jan, 2012 [facility] [address] [id number] [address] [place] [address], [place] [id number] 22 Jan, 2012 [facility] [address] [id number] [address] [place] [address], [place] [id number] 20 Jan, 2012 [facility] [address] [id number] [address] [place] [address], [place] [id number] 17 Jan, 2012 [facility] [address] [id number] [address] [place] [address], [place] [id number] 17 Jan, 2012 [facility] [address] [id number] [address] [place] [address], [place] [id number] 17 Jan, 2012 [facility] [address] [id number] [address] [place] [address], [place] [id number] 16 Jan, 2012 [facility] [address] [id number] [address] [place] [address], [place] [id number] 13 Jan, 2012 [facility] [address] [id number] [address] [place] [address], [place] [id number] 07 Jan, 2012 [facility] [address] [id number] [address] [place] [address], [place] [id number] 26 Dec, 2011 [facility] [address] [id number] [address] [id number] 24 Dec, 2011 [facility] [address] [id number] [facility] [place] [id number] 23 Dec, 2011 [facility] [address] [id number] [facility] [place] [id number] 19 Dec, 2011 [facility] [address] [id number] [address] [place] [address], [place] [id number] 18 Dec, 2011 [facility] [address] [id number] [address] [place] [address], [place] [id number] 17 Dec, 2011 [facility] [address] [id number] [address] [place] [address], [place] [id number] 16 Dec, 2011 [facility] [address] [id number] [address] [place] [address], [place] [id number] 14 Dec, 2011 [facility] [address] [id number] [address] [place] [address], [place] [id number] Dec, [facility] [address] [id number] [address] [place] [address], [place] [id number] Dec, [facility] [address] [id number] [address] [place] [address], [place] [id number] 06 Dec, 2011 [facility] [address] [id number] [address] [place] [address], [place] [id number] Nov, [facility] [address] [id number] [address] [place] [address], [place] [id number] Nov, [facility] [address] [id number] [address] [place] [address], [place] [id number] Nov, [facility] [address] [id number] [address] [place] [address], [place] [id number] Nov, [facility] [address] [id number] [address] [place] [address], [place] [id number] Nov, [facility] [address] [id number] [address] [place] [address], [place] [id number] Nov, [facility] [place] [address] [facility] [id number] [address] [place] [id number] Nov, [facility] [place] [address] [facility] [id number] [address] [place] [id number] Nov, [facility] [place] [address] [facility] [id number] [address] [place] [id number] Nov, [facility] [place] [address] [facility] [id number] [address] [place] [id number] Nov, [facility] [place] [address] [facility] [id number] [address] [place] [id number] October, IMMUNIZATIONS No Known Immunizations SOCIAL HISTORY Never Assessed REASON FOR VISIT PLAN OF CARE VITAL SIGNS Height 64 in 2013-05-18 Weight 164.19 lbs 2013-05-18 Temperature 97 degrees Fahrenheit 2013-05-18 Heart Rate 56 bpm 2013-05-18 Respiratory Rate 24 2013-05-18 Blood pressure systolic 126 mmHg 2013-05-18 Blood pressure diastolic 84 mmHg 2013-05-18 MEDICATIONS Unknown Medications RESULTS No Results PROCEDURES [...]
--- OUTSIDE RECORDS SUMMARY | 2019-12-11 17:58 | XMS REPORT ---
Author Author Maggy Ballesteros Doctor Organization [facility] Address Unknown Phone Unavailable Care Team Providers Care Deck Cadet Name Role Phone Migration, Doctor Unavailable Unavailable PROBLEMS Type Condition ICD9-CM Code [id number] Code Onset Dates Condition S tatus SNOMED Code Problem Abnormal glucose R73.09 Active 102 909415 Problem Hyperlipidemia LDL goal <100 E78.5 A ctive 10583431 Problem Elevated liver enzymes R74.8 Active 613813216 Problem Tremor, hereditary, benign G25.0 Act caitlin [id number] Problem Major depressive disorder, recurrent episode, moderate F33.1 Active 345606851 Problem Reflux gastritis K29.60 Active 729 11807 Problem Other chronic pain G89.29 Active 8 7704446 Problem Constipation by delayed colonic transit K59.01 Active 22461505 Problem Essential hypertension I10 Active 82299483 Problem Seizure disorder G40.909 Active 128 687861 Problem Other chronic pain G89.29 Active 8 4581797 Problem Moderate persistent asthma without complication J4 5.40 Active 286620212 Problem Primary insomnia F51.01 Active 397 2004 Problem Intractable chronic migraine without aura and wi th status migrainosus G43.711 Active 636167464 Problem Moderate persistent asthma with exacerbation J45.4 1 Active 797941959 Problem Irritable bowel syndrome with constipation K58.1 Active 928425314 Problem Lumbago with sciatica, left side M54.42 Active 342543596 Problem Lumbago with sciatica, right side M54.41 Active 813186542464845 Problem History of hypokalemia Z86.39 Active 400517718 Problem Chronic migraine without aura with statu s migrainosus, not intractable G43.701 Active 740705403 Problem Chronic fatigue R53.82 Active 8422 9001 Problem Irritable bowel K58.9 Active 1074 3008 Problem Hypokalemia E87.6 Active 76658978 Problem Mood disorder F39 Active 751715 05 Problem RLS (restless legs syndrome) G25.81 A ctive 64649171 Problem Aneurysm I72.9 Active 06135325 Problem Migraine with aura and without status migrainosu s, not intractable G43.109 Active 4375031 ALLERGIES No Information ENCOUNTERS Encounter Location Date Diagnosis [place] [address] [address] 08 Nov, 2019 Seizure disorder G40.909 and Hypokalemia E87.6 [place] [address] [address] 05 Nov, 2019 Electrolyte imbalance E87.8 [place] [address] [address] Nov, Electrolyte imbalance E87.8 [place] [address] [address] 27 Oct, 2019 Diarrhea, unspecified R19.7 ; Nausea with vomiting, unspecified R11.2 and Chronic fatigue R53.82 [place] [address] [address] October, [place] [address] [address] October, Seizure disorder G40.909 and Tremor, hereditary, benign G25.0 [place] [address] [address] Sep, Primary insomnia F51.01 ; Ot her chronic pain G89.29 and Pain in right shoulder M25.511 [place] [address] [address] 08 Sep, 2019 Bilious vomiting with nausea R11.14 [facility] [address] [address] 07 Aug, 2019 Influenza A J10.1 [place] [address] [address] Aug, [place] [address] [address] Aug, Tinea pedis of both feet B35 .3 and Migraine with aura and without status migrainosus, not intractable G43.109 [facility] [address] [facility] [id number] [address] [place] [address] Jul, [facility] [address] [place] [id number] [address] [place] [address] 19 Jul, 2019 Rib pain on left side R07.81 [facility] [address] [place] [id number] [address] [place] [address] 10 Jul, 2019 Seizure disorder G40.909 and Aneurysm I72.9 [place] [address] [place] [id number] [place] [address] 07 Jul, 2019 [place] [address] [place] [id number] [address] [place] [address] Jul, Seizure disorder G40.909 ; A neurysm I72.9 ; Migraine with aura and without status migrainosus, not intractable G43.109 and History of hypokalemia Z86.39 [facility] [address] [place] [id number] [address] [place] [address] 04 Jul, 2019 [facility] [address] [facility] [id number] [address] [place] [address] Jun, [place] [address] [place] [id number] [place] [address] Jun, Seizures R56.9 ; Migraine wi th aura and without status migrainosus, not intractable G43.109 ; Other chronic pain G89.29 and Pain in right shoulder M25.511 [place] [address] [address] [place] [id number] [address] [place] [address] Jun, [place] [address] [place] [id number] [address] [place] [address] May, Primary insomnia F51.01 ; In tractable chronic migraine without aura and with status migrainosus G43.711 and Aneurysm I72.9 [facility] [address] [id number] [address] [place] [address] Apr, RLS (restless legs syndrome) G25.81 and Mood disorder F39 [facility] [address] [id number] [address] [place] [address] Apr, [facility] [address] [id number] [address] [place] [address] Mar, Other chronic pain G89.29 an d Pain in right shoulder M25.511 [facility] [address] [id number] [address] [place] [address] Mar, Acute left ankle pain M25.57 2 [facility] [address] [id number] [address] [place] [address] Mar, [facility] [address] [id number] [address] [place] [address] Mar, Acute left ankle pain M25.57 2 [facility] [address] [id number] [address] [place] [address] Mar, Major depressive disorder, r ecurrent episode, moderate F33.1 [facility] [address] [id number] [address] [place] [address] Mar, Major depressive disorder, r ecurrent episode, moderate F33.1 ; Lumbago with sciatica, left side M54.42 and Lumbago with sciatica, right side M54.41 [facility] [address] [id number] [address] [place] [address] Mar, [facility] [address] [id number] [address] [place] [address] Mar, [facility] [address] [facility] [id number] [address] [place] [address] Mar, Major depressive disorder, r ecurrent episode, moderate F33.1 ; Lumbago with sciatica, left side M54.42 and Lumbago with sciatica, right side M54.41 [place] [address] [facility] [id number] [address] [place] [address] Feb, Viral gastroenteritis A08.4 [facility] [address] [facility] [id number] [address] [place] [address] Feb, Nausea and vomiting, intract ability of vomiting not specified, unspecified vomiting type R11.2 [place] [address] [place] [id number] [address] [place] [address] Feb, [place] [address] [facility] [id number] [address] [place] [address] Feb, [place] [address] [place] [id number] [place] [address] Feb, C. difficile colitis A04.72 ; Mood disorder F39 ; Lumbago with sciatica, left side M54.42 ; Lumbago with sciatica, right side M54.41 and Other chronic pain G89.29 [place] [id number] [address] [place] [address] Jan, [facility] [address] [place] [id number] [address] [place] [address] Jan, Nausea & vomiting R11.2 [place] [address] [place] [id number] [address] [place] [address] Dec, Irritable bowel syndrome wit h constipation K58.1 ; Other chronic pain G89.29 and Pain in right shoulder M25.511 [facility] [address] [facility] [id number] [address] [place] [address] Dec, [facility] [place] [address] [facility] [id number] [address] [place] [address] Dec, Generalized abdominal pain R 10.84 and Nausea and vomiting, intractability of vomiting not specified, unspecified vomiting type R11.2 [place] [address] [facility] [id number] [address] [place] [address] Dec, Dysuria R30.0 and Irritable bowel K58.9 [facility] [place] [address] [facility] [id number] [address] Sep, Chronic nausea R11.0 [facility] [address] [facility] [id number] [address] [place] [address] Sep, [facility] [address] [facility] [id number] [address] [place] [address] Sep, Viral gastroenteritis A08.4 [facility] [address] [facility] [id number] [address] [place] [address] Aug, Headache R51 ; Viral upper r espiratory tract infection J06.9 and Nausea R11.0 [facility] [address] [facility] [id number] [address] [place] [address] Jun, Reflux gastritis K29.60 [facility] [address] [place] [id number] [address] [place] [address] Jun, [facility] [address] [facility] [id number] [address] [place] [address] May, [facility] [address] [address] May, [facility] [address] [place] [id number] [place] [address] Apr, Bowel habit changes R19.4 an d Acute cystitis without hematuria N30.00 [facility] [address] [facility] [id number] [address] [place] [address] Apr, Pain in right shoulder M25.5 11 [facility] [address] [facility] [id number] [address] [place] [address] Apr, [facility] [address] [place] [id number] [address] [place] [address] Mar, [facility] [address] [place] [id number] [address] [place] [address] Mar, [facility] [address] [id number] [address] [place] [address] 15 Mar, 2018 [facility] [address] [id number] [address] [place] [address] Mar, [facility] [address] [id number] [address] [place] [address] 14 Feb, 2018 [facility] [address] [id number] [address] [place] [address] Feb, [facility] [address] [id number] [address] [place] [address] Feb, [facility] [address] [id number] [address] [place] [address] Jan, [facility] [address] [id number] [address] [place] [address] Dec, [facility] [address] [facility] [id number] [address] [place] [address] Dec, Other chronic pain G89.29 ; Pain in right shoulder M25.511 and Liver enzyme elevation R74.8 [facility] [address] [facility] [id number] [address] [place] [address] Nov, Other chronic pain G89.29 an d Pain in right shoulder M25.511 [facility] [address] [facility] [id number] [address] [place] [address] October, [facility] [address] [facility] [id number] [address] [place] [address] October, Right shoulder pain, unspeci fied chronicity M25.511 [facility] [address] [id number] [address] [place] [address] Aug, Elevated liver enzymes R74.8 and Hyperlipidemia LDL goal <100 E78.5 [facility] [address] [id number] [address] [place] [address] Aug, [facility] [address] [id number] [address] [place] [address] Jul, [place] [address] [place] [id number] [address] [place] [address] Jul, Intractable chronic migraine without aura and with status migrainosus G43.711 ; Fever, unspecified fever cause R50.9 and Elevated liver enzymes R74.8 [place] [address] [place] [id number] [place] [address] Jun, Difficulty urinating R39.198 and Moderate persistent asthma with exacerbation J45.41 [place] [address] [place] [id number] [address] [place] [address] Jun, [place] [address] [address] Jun, Moderate persistent asthma w ith exacerbation J45.41 [place] [address] [address] May, Elevated liver enzymes R74.8 and Hyperlipidemia LDL goal <100 E78.5 [place] [address] [place] [id number] [address] [place] [address] May, Elevated lipids E78.5 [place] [address] [place] [id number] [address] [place] [address] Apr, Elevated liver enzymes R74.8 [place] [address] [address] Apr, Elevated liver enzymes R74.8 [place] [address] [place] [id number] [address] [place] [address] Apr, Superior glenoid labrum lesi on of right shoulder, subsequent encounter S43.431D [place] [address] [place] [id number] [address] [place] [address] Apr, Hypokalemia E87.6 ; Major de pressive disorder, recurrent episode, moderate F33.1 ; Other abnormalities of breathing R06.89 and Dyspnea, unspecified R06.00 [facility] [address] [id number] [address] [place] [address] Mar, Moderate persistent asthma w ithout complication J45.40 [facility] [address] [facility] [id number] [address] [place] [address] Mar, Impingement syndrome of righ t shoulder M75.41 [facility] [address] [id number] [address] [place] [address] Jan, [facility] [address] [facility] [id number] [address] [place] [address] Jan, Chronic migraine without aur a with status migrainosus, not intractable G43.701 ; Essential hypertension I10 ; Irritable bowel K58.9 ; Primary insomnia F51.01 and Hypokalemia E87.6 [facility] [address] [facility] [id number] [address] [place] [address] Dec, [facility] [address] [facility] [id number] [address] [place] [address] Dec, [facility] [address] [facility] [id number] [address] [place] [address] Dec, Pain in right shoulder M25.5 11 [facility] [address] [facility] [id number] [address] [place] [address] Dec, Essential hypertension I10 [facility] [address] [facility] [id number] [address] [place] [address] Nov, Essential hypertension I10 [facility] [address] [id number] [address] [place] [address] 14 Nov, 2016 Pain in right shoulder M25.5 11 [facility] [address] [facility] [id number] [address] [place] [address] Nov, Pain in right shoulder M25.5 11 [facility] [address] [facility] [id number] [address] [place] [address] October, [facility] [address] [place] [id number] [address] [place] [address] October, Pain in right shoulder M25.5 11 [place] [address] [address] Sep, Arm pain, right M79.601 [facility] [address] [place] [id number] [address] [place] [address] Sep, [facility] [address] [place] [id number] [place] [address] Sep, Abnormal glucose R73.09 and Elevated lipids E78.5 [place] [address] [address] Sep, Abnormal glucose R73.09 and Elevated lipids E78.5 [place] [address] [place] [id number] [place] [address] Aug, [place] [address] [address] Aug, [facility] [address] [address] Aug, [place] [address] [address] Aug, Constipation by delayed colo reny transit K59.01 ; Hypokalemia E87.6 ; Irritable bowel K58.9 ; Essential hypertension I10 ; Pain in right shoulder M25.511 ; Seizure disorder G40.909 and Screening for lipid disorders Z13.220 [facility] [address] [place] [id number] [address] [place] [address] Jul, Other chronic pain G89.29 an d Pain in right shoulder M25.511 [place] [address] [place] [address] 14 Jul, 2016 Biceps muscle strain, right, subsequent encounter S46.111D [facility] [address] [place] [id number] [address] [place] [address] Jul, Arm pain, right M79.601 [facility] [address] [place] [id number] [address] [place] [address] Jun, [place] [address] [address] Jun, Acute non-recurrent frontal sinusitis J01.10 [place] [address] [address] May, Generalized abdominal pain R 10.84 ; Urinary tract infection without hematuria, site unspecified N39.0 ; Hypokalemia E87.6 ; Essential hypertension I10 ; Screening for lipid disorders Z13.220 ; Seizure R56.9 and Low back pain M54.5 [place] [address] [address] Apr, [facility] [address] [address] Feb, [facility] [address] [address] Jan, [place] [address] [address] Dec, Constipation by delayed colo reny transit K59.01 ; Hypokalemia E87.6 ; Irritable bowel K58.9 and Nausea R11.0 [facility] [address] [place] [id number] [address] [place] [address] Dec, Generalized abdominal pain R 10.84 [facility] [address] [place] [address] Nov, [facility] [address] [place] [id number] [address] [place] [address] 14 Aug, 2015 Acute bronchitis J20.9 [place] [address] [place] [id number] [address] [place] [address] 14 Aug, 2015 [place] [address] [place] [address] 08 Aug, 2015 Low back pain M54.5 ; Hypoka lemia E87.6 ; Chronic migraine without aura with status migrainosus, not intractable G43.701 ; Tremor, hereditary, benign G25.0 ; Irritable bowel K58.9 ; Essential hypertension I10 and Seizure R56.9 [place] [address] [place] [address] Aug, [place] [address] [address] Jul, [place] [address] [address] 03 Jul, 2015 Low back pain M54.5 ; Hypoka lemia E87.6 ; Chronic migraine without aura with status migrainosus, not intractable G43.701 ; Tremor, hereditary, benign G25.0 ; Irritable bowel K58.9 ; Essential hypertension I10 and Seizure R56.9 [place] [address] [address] Jun, Hypokalemia E87.6 [place] [address] [address] Jun, ADD (attention deficit disor dionicio) without hyperactivity F90.0 ; Generalized anxiety disorder F41.1 and Major depressive disorder, recurrent episode, moderate F33.1 [place] [address] [address] Jun, Low back pain M54.5 ; Hypoka lemia E87.6 ; Chronic migraine without aura with status migrainosus, not intractable G43.701 ; Tremor, hereditary, benign G25.0 ; Irritable bowel K58.9 ; Essential hypertension I10 and Seizure R56.9 [place] [address] [address] Jun, [place] [address] [address] May, [place] [address] [facility] [id number] [address] [place] [address] 30 May, 2015 Low back pain M54.5 ; Hypoka lemia E87.6 ; Chronic migraine without aura with status migrainosus, not intractable G43.701 ; Tremor, hereditary, benign G25.0 ; Irritable bowel K58.9 ; Essential hypertension I10 ; Seizure R56.9 and Tinea capitis B35.0 [place] [address] [place] [id number] [address] [place] [address] 17 May, 2015 Low back pain M54.5 ; Hypoka lemia E87.6 ; Chronic migraine without aura with status migrainosus, not intractable G43.701 ; Tremor, hereditary, benign G25.0 ; Irritable bowel K58.9 ; Essential hypertension I10 ; Seizure R56.9 ; Otitis media, left H66.92 and Dysuria 788.1 [place] [address] [address] 14 May, 2015 Tooth pain K08.8 [place] [address] [place] [id number] [address] [place] [address] May, [place] [address] [address] May, Low back pain M54.5 ; Hypoka lemia E87.6 ; Chronic migraine without aura with status migrainosus, not intractable G43.701 ; Tremor, hereditary, benign G25.0 ; Irritable bowel K58.9 and Essential hypertension I10 [place] [address] [facility] [id number] [address] [place] [address] 18 Apr, 2015 Low back pain M54.5 ; Hypoka lemia E87.6 ; Chronic migraine without aura with status migrainosus, not intractable G43.701 ; Tremor, hereditary, benign G25.0 and Irritable bowel K58.9 [place] [address] [place] [id number] [address] [place] [address] Apr, Low back pain M54.5 [facility] [address] [place] [id number] [address] [place] [address] Mar, [facility] [address] [place] [id number] [place] [address] Mar, Irritable bowel syndrome wit h diarrhea K58.0 [facility] [address] [address] Mar, [facility] [address] [place] [id number] [place] [address] Feb, [facility] [address] [address] Feb, [facility] [address] [address] Feb, Irritable bowel syndrome 564 .1 ; Lumbago 724.2 and Cervical pain (neck) 723.1 [facility] [address] [address] Dec, Major depressive disorder, r ecurrent episode, moderate 296.32 and Generalized anxiety disorder 300.02 [facility] [address] [place] [id number] [address] [place] [address] Nov, [facility] [address] [address] Nov, Major depressive disorder, r ecurrent episode, moderate 296.32 [facility] [address] [place] [id number] [address] [place] [id number] Nov, Constipation 564.00 ; Nausea & vomiting 787.01 and Abdominal pain 789.00 [facility] [address] [place] [id number] [place] [id number] Nov, [facility] [address] [place] [id number] [address] [place] [id number] October, [facility] [address] [place] [address] October, [facility] [address] [id number] [address] [place] [address], [place] [address] October, [facility] [address] [id number] [address] [place] [address], [place] [id number] October, [facility] [address] [id number] [address] [place] [address], [place] [address] Sep, [facility] [address] [id number] [address] [place] [address], [place] [address] Sep, Dysuria 788.1 [facility] [address] [id number] [address] [place] [address], [place] [address] Sep, [facility] [address] [id number] [address] [place] [address], [place] [address] Sep, [facility] [address] [id number] [address] [place] [address], [place] [address] Sep, [facility] [address] [id number] [address] [place] [address], [place] [address] Aug, [facility] [address] [id number] [address] [place] [address], [place] [address] Aug, [facility] [address] [id number] [address] [place] [address], [place] [address] Aug, [facility] [address] [id number] [address] [place] [address], [place] [address] Aug, [facility] [address] [id number] [address] [place] [address], [place] [address] Aug, [facility] [address] [id number] [address] [place] [address], [place] [address] Aug, [facility] [address] [id number] [address] [place] [address], [place] [address] Aug, [facility] [address] [id number] [address] [place] [address], [place] [address] Aug, [facility] [address] [id number] [address] [place] [address], [place] [address] Aug, [facility] [address] [id number] [address] [place] [address], [place] [address] Aug, [facility] [address] [id number] [address] [place] [address], [place] [address] Jun, [facility] [address] [id number] [address] [place] [address], [place] [address] Jun, [facility] [address] [id number] [address] [place] [address], [place] [address] Jun, [facility] [address] [id number] [address] [place] [address], [place] [address] Jun, [facility] [address] [id number] [address] [place] [address], [place] [address] May, [facility] [address] [id number] [address] [place] [address], [place] [address] May, [facility] [address] [id number] [address] [place] [address], [place] [address] May, [facility] [address] [id number] [address] [place] [address], [place] [address] May, [facility] [address] [id number] [address] [place] [address], [place] [address] May, [facility] [address] [id number] [address] [place] [address], [place] [address] May, [facility] [address] [id number] [address] [place] [address], [place] [address] May, [facility] [address] [id number] [address] [place] [address], [place] [address] May, [facility] [address] [id number] [address] [place] [address], [place] [address] Mar, [facility] [address] [id number] [address] [place] [address], [place] [address] 30 Mar, 2014 [facility] [address] [id number] [address] [place] [address], [place] [address] Mar, [facility] [address] [id number] [address] [place] [address], [place] [address] Mar, [facility] [address] [id number] [address] [place] [address], [place] [address] Mar, [facility] [address] [id number] [address] [place] [address], [place] [address] Mar, [facility] [address] [id number] [address] [place] [address], [place] [address] Mar, [facility] [address] [id number] [address] [place] [address], [place] [address] Mar, [facility] [address] [id number] [address] [place] [address], [place] [address] Mar, [facility] [address] [id number] [address] [place] [address], [place] [address] Mar, [facility] [address] [id number] [address] [place] [address], [place] [address] Mar, [facility] [address] [id number] [address] [place] [address], [place] [address] Mar, [facility] [address] [id number] [address] [place] [address], [place] [address] 24 Feb, 2013 [facility] [address] [id number] [address] [place] [address], [place] [address] 24 Feb, 2013 [facility] [address] [id number] [address] [place] [address], [place] [address] 22 Feb, 2013 [facility] [address] [id number] [address] [place] [address], [place] [address] 22 Feb, 2013 [facility] [address] [id number] [address] [place] [address], [place] [address] 10 Feb2013 [facility] [address] [id number] [facility] [place] [address] Feb, [facility] [address] [id number] [facility] [place] [address] Jan, [facility] [address] [id number] [facility] [place] [address] Jan, [facility] [address] [id number] [address] [place] [address], [place] [address] Jan, [facility] [address] [id number] [address] [place] [address], [place] [address] Jan, [facility] [address] [id number] [address] [place] [address], [place] [address] Jan, [facility] [address] [id number] [address] [place] [address], [place] [address] Jan, [facility] [address] [id number] [address] [place] [address], [place] [address] Jan, [facility] [address] [id number] [address] [place] [address], [place] [address] Jan, [facility] [address] [id number] [address] [place] [address], [place] [address] Dec, [facility] [address] [id number] [address] [place] [address], [place] [address] Dec, [facility] [address] [id number] [address] [place] [address], [place] [address] Dec, [facility] [address] [id number] [address] [place] [address], [place] [address] Dec, [facility] [address] [id number] [address] [place] [address], [place] [address] Dec, [facility] [address] [id number] [address] [place] [address], [place] [address] Dec, [facility] [address] [id number] [address] [place] [address], [place] [address] Dec, [facility] [address] [id number] [facility] [place] [address] Dec, [facility] [address] [id number] [address] [place] [address], [place] [address] October, [facility] [address] [id number] [address] [place] [address], [place] [address] October, [facility] [address] [id number] [address] [place] [address], [place] [address] Sep, [facility] [address] [id number] [address] [place] [address], [place] [address] Sep, [facility] [address] [id number] [address] [place] [address], [place] [address] Sep, [facility] [address] [id number] [address] [place] [address], [place] [address] Sep, [facility] [address] [id number] [address] [place] [address], [place] [address] Sep, [facility] [address] [id number] [address] [place] [address], [place] [address] Sep, [facility] [address] [id number] [address] [place] [address], [place] [address] Sep, [facility] [address] [id number] [address] [place] [address], [place] [address] Sep, [facility] [address] [id number] [address] [place] [address], [place] [address] Sep, [facility] [address] [id number] [address] [place] [address], [place] [address] Sep, [facility] [address] [id number] [address] [place] [address], [place] [address] Sep, [facility] [address] [id number] [address] [place] [address], [place] [address] Sep, [facility] [address] [id number] [address] [place] [address], [place] [address] Aug, [facility] [address] [id number] [address] [place] [address], [place] [address] Aug, [facility] [address] [id number] [address] [place] [address], [place] [address] 05 Aug, 2013 [facility] [address] [id number] [address] [place] [address], [place] [address] Jun, [facility] [address] [id number] [address] [place] [address], [place] [address] Jun, [facility] [address] [id number] [address] [place] [address], [place] [address] Jun, [facility] [address] [id number] [address] [place] [address], [place] [address] Jun, [facility] [address] [id number] [address] [place] [address], [place] [address] Jun, [facility] [address] [id number] [address] [place] [address], [place] [address] Jun, [facility] [address] [id number] [address] [place] [address], [place] [address] Jun, [facility] [address] [id number] [address] [place] [address], [place] [address] Jun, [facility] [address] [id number] [address] [place] [address], [place] [address] Jun, [facility] [address] [id number] [address] [place] [address], [place] [address] Jun, [facility] [address] [id number] [address] [place] [address], [place] [address] May, [facility] [address] [id number] [address] [place] [address], [place] [address] May, [facility] [address] [id number] [address] [place] [address], [place] [address] May, [facility] [address] [id number] [address] [place] [address], [place] [address] May, [facility] [address] [id number] [address] [place] [address], [place] [address] Apr, [facility] [address] [id number] [address] [place] [address], [place] [address] Apr, [facility] [address] [id number] [address] [place] [address], [place] [address] Apr, [facility] [address] [id number] [address] [place] [address], [place] [address] Apr, [facility] [address] [id number] [address] [place] [address], [place] [address] Apr, [facility] [address] [id number] [address] [place] [address], [place] [address] Apr, [facility] [address] [id number] [address] [place] [address], [place] [address] Apr, [facility] [address] [id number] [address] [place] [address], [place] [address] Apr, [facility] [address] [id number] [address] [place] [address] Mar, [facility] [address] [id number] [address] [place] [address] Mar, [facility] [address] [id number] [address] [place] [address] Mar, [facility] [address] [id number] [address] [place] [address], [place] [address] Mar, [facility] [address] [id number] [address] [place] [address] Mar, [facility] [address] [id number] [address] [place] [address] Feb, [facility] [address] [id number] [address] [place] [address] 11 Feb, 2013 [facility] [address] [id number] [address] [place] [address], [place] [address] 05 Feb, 2013 [facility] [address] [id number] [address] [place] [address], [place] [address] 05 Feb, 2013 [facility] [address] [id number] [address] [place] [address], [place] [address] Feb, [facility] [address] [id number] [address] [place] [address], [place] [address] Jan, [facility] [address] [id number] [address] [place] [address], [place] [address] Jan, [facility] [address] [id number] [address] [place] [address], [place] [address] Nov, [facility] [address] [id number] [address] [place] [address], [place] [address] Nov, [facility] [address] [id number] [address] [place] [address], [place] [address] Nov, [facility] [address] [id number] [address] [place] [address], [place] [address] Nov, [facility] [address] [id number] [address] [place] [address], [place] [address] October, [facility] [address] [id number] [address] [place] [address], [place] [address] Sep, [facility] [address] [id number] [address] [place] [address], [place] [address] 27 Aug, 2012 [facility] [address] [id number] [address] [place] [address], [place] [address] 26 Aug, 2012 [facility] [address] [id number] [address] [place] [address], [place] [address] 16 Aug, 2012 [facility] [address] [id number] [address] [place] [address], [place] [address] 06 Aug, 2012 [facility] [address] [id number] [address] [place] [address], [place] [address] Jul, [facility] [address] [id number] [address] [place] [address], [place] [address] Jun, [facility] [address] [id number] [address] [place] [address], [place] [address] Jun, [facility] [address] [id number] [address] [place] [address], [place] [address] May, [facility] [address] [id number] [address] [place] [address], [place] [address] May, [facility] [address] [id number] [address] [place] [address], [place] [id number] Mar, [facility] [address] [id number] [address] [place] [address], [place] [address] Mar, [facility] [address] [id number] [address] [place] [address], [place] [address] Mar, [facility] [address] [id number] [address] [place] [address], [place] [address] Mar, [facility] [address] [id number] [address] [place] [address], [place] [address] Mar, [facility] [address] [id number] [address] [place] [address], [place] [address] Mar, [facility] [address] [id number] [address] [place] [address], [place] [address] Mar, [facility] [address] [id number] [address] [place] [address], [place] [address] Mar, [facility] [address] [id number] [address] [place] [address], [place] [address] Mar, [facility] [address] [id number] [address] [place] [address], [place] [address] Mar, [facility] [address] [id number] [address] [place] [address], [place] [address] Mar, [facility] [address] [id number] [address] [place] [address], [place] [address] 17 Mar, 2012 [facility] [address] [id number] [address] [place] [address], [place] [address] 17 Mar, 2012 [facility] [address] [id number] [address] [place] [address], [place] [address] 15 Mar, 2012 [facility] [address] [id number] [address] [place] [address], [place] [address] 15 Mar, 2012 [facility] [address] [id number] [address] [place] [address], [place] [address] 15 Mar, 2012 [facility] [address] [id number] [address] [place] [address], [place] [address] 15 Mar, 2012 [facility] [address] [id number] [address] [place] [address], [place] [address] Mar, [facility] [address] [id number] [address] [place] [address] Mar, [facility] [address] [id number] [address] [place] [address], [place] [address] Mar, [facility] [address] [id number] [address] [place] [address] 08 Mar, 2012 [facility] [address] [id number] [address] [place] [address] Mar, [facility] [address] [id number] [address] [place] [address] Mar, [facility] [address] [id number] [address] [place] [address], [place] [address] 19 Feb, 2012 [facility] [address] [id number] [address] [place] [address] 18 Sep2011 [facility] [address] [id number] [address] [place] [address], [place] [address] 17 Feb, 2012 [facility] [address] [id number] [address] [place] [address], [place] [address] 14 Feb, 2011 [facility] [address] [id number] [address] [place] [address], [place] [address] 14 Feb, 2011 [facility] [address] [id number] [address] [place] [address], [place] [address] 12 Feb, 2012 [facility] [address] [id number] [address] [place] [address], [place] [address] 10 Feb, 2012 [facility] [address] [id number] [address] [place] [address], [place] [address] 31 Jan, 2012 [facility] [address] [id number] [address] [place] [address], [place] [address] 30 Jan, 2012 [facility] [address] [id number] [address] [place] [address], [place] [address] 22 Jan, 2012 [facility] [address] [id number] [address] [place] [address], [place] [address] 20 Jan, 2012 [facility] [address] [id number] [address] [place] [address], [place] [address] 17 Jan, 2012 [facility] [address] [id number] [address] [place] [address], [place] [address] 17 Jan, 2012 [facility] [address] [id number] [address] [place] [address], [place] [address] 17 Jan, 2012 [facility] [address] [id number] [address] [place] [address], [place] [address] 16 Jan, 2012 [facility] [address] [id number] [address] [place] [address], [place] [address] 13 Jan, 2012 [facility] [address] [id number] [address] [place] [address], [place] [address] 07 Jan, 2012 [facility] [address] [id number] [address] [place] [address], [place] [address] 26 Dec, 2011 [facility] [address] [id number] [address] [place] [address], [place] [address] 24 Dec, 2011 [facility] [address] [id number] [facility] [place] [address] 23 Dec, 2011 [facility] [address] [id number] [address] [place] [address], [place] [address] 19 Dec, 2011 [facility] [address] [id number] [facility] [place] [address] 18 Dec, 2011 [facility] [address] [id number] [address] [place] [address], [place] [address] 17 Dec, 2011 [facility] [address] [id number] [address] [place] [address], [place] [address] 16 Dec, 2011 [facility] [address] [id number] [address] [place] [address], [place] [address] 14 Dec, 2011 [facility] [address] [id number] [address] [place] [address], [place] [address] Dec, [facility] [address] [id number] [address] [place] [address], [place] [address] Dec, [facility] [address] [id number] [address] [place] [address], [place] [address] 06 Dec, 2011 [facility] [address] [id number] [address] [place] [address], [place] [address] Nov, [facility] [address] [id number] [address] [place] [address], [place] [address] Nov, [facility] [address] [id number] [address] [place] [address], [place] [address] Nov, [facility] [address] [id number] [address] [place] [address], [place] [address] Nov, [facility] [address] [id number] [address] [place] [address], [place] [address] Nov, [facility] [address] [id number] [address] [place] [address], [place] [address] Nov, [facility] [address] [id number] [address] [place] [address], [place] [address] Nov, [facility] [address] [facility] [id number] [address] [place] [phone] Nov, [facility] [address] [facility] [id number] [address] [place] [phone] Nov, [facility] [address] [facility] [id number] [address] [place] [phone] Nov, [facility] [address] [facility] [id number] [address] [place] [phone] October, IMMUNIZATIONS No Known Immunizations SOCIAL HISTORY [...]
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
== END 2019-12-11 16:16 | disposition home or self-care (01) ==
LOC: EDUNIT# 14:03 → ER 14:04
DX: R11.2 Nausea with vomiting, unspecified (principal); K21.9 Gastro-esophageal reflux disease without esophagitis; K58.9 Irritable bowel syndrome, unspecified; F41.9 Anxiety disorder, unspecified; F32.9 Major depressive disorder, single episode, unspecified; G89.29 Other chronic pain; M54.9 Dorsalgia, unspecified; G43.909 Migraine, unspecified, not intractable, without status migrainosus; Z79.82 Long term (current) use of aspirin; Z88.5 Allergy status to narcotic agent; Z88.8 Allergy status to other drugs, medicaments and biological substances; Z88.6 Allergy status to analgesic agent; Z79.891 Long term (current) use of opiate analgesic
CPT/HCPCS: 36415; 70450; 80053; 80306; 81000; 83690; 84703; 85007; 85027; 93005

== ENCOUNTER 2020-01-10 21:04 | Emergency (ER) | payer SELFPAY ==
[~2020-01-10] VITALS: Ht 169 cm; Wt 81.0 kg
[~2020-01-10 21:04] MED LIST changes: +HYDR-3812 PO; -HYDR-83 PO; +PROC25SU27 RC
[2020-01-10] MEDS ORDERED: NS IV 1000 ML 1,000 ML ONE (21:07)
[2020-01-10] MEDS ORDERED: NS IV 1000 ML 1,000 ML IV SCH (21:15)
[2020-01-10] MEDS ORDERED: diphenhydrAMINE 50 MG/ML INJ (BENADRYL) IVP ONE (21:15)
[2020-01-10] MEDS ORDERED: LORazepam INJ 2 MG/ML (ATIVAN) VIAL IVP ONE (21:15)
[2020-01-10] MEDS ORDERED: HALOPERIDOL 5 MG/ML (HALDOL) VIAL IV ONE (21:15)
--- NOTE | 2020-01-10 21:15 | ED Abdominal Pain ---
General Stated Complaint: N/V Source of Information: Patient Exam Limitations: No Limitations (FAMILIA ELISE APRN) History of Present Illness Date Seen by Provider: Jan 10, 2020 Time Seen by Provider: 21:12 Initial Comments diffuse abdominal pain accompanied by n/v since last night. history of hyperemesis cannabinoid syndrome but assures me she hasnt smoked in over a month. no diarrhea no fevers. Timing/Duration: 1-2 Days Severity/Quality: Moderate Radiation: No Radiation Activities at Onset: None Associated Symptoms: Nausea/Vomiting (FAMILIA ELISE APRN) Allergies and Home Medications Allergies Coded Allergies: morphine (Verified Allergy, Unknown, CAUSES "REBOUND HEADACHES", 08/20/13) baclofen (Verified Adverse Reaction, Severe, 06/13/15) PATIENT UNAWARE OF REACTION BUT WAS HOSPITALIZED AFTER TAKING MEDICATION AND WAS TOLD IT WAS A REACTION DUE TO THE MEDICATION SHE TOOK. meloxicam (Verified Adverse Reaction, Severe, 06/13/15) PATIENT UNAWARE OF REACTION BUT WAS HOSPITALIZED AFTER TAKING MEDICATION AND WAS TOLD IT WAS A REACTION DUE TO THE MEDICATION SHE TOOK. NSAIDS (Non-Steroidal Anti-Inflamma (Verified Adverse Reaction, Mild, have IBS and avoid NSAIDS, 12/04/12) Home Medications Amlodipine Besylate 5 Mg Tablet, 5 MG PO DAILY Prescribed by: JOSE RUIZ on 11/19/19 1011 Aspirin/Acetaminophen/Caffeine 1 Each Tablet, 2 EACH PO Q6-8HR PRN for Headache, (Reported) Dicyclomine HCl 20 Mg Tablet, 20 MG PO QID, (Reported) Doxepin HCl 100 Mg Capsule, 100 MG PO HS, (Reported) LAST FILLED 09-23-2019 #30 Famotidine 20 Mg Tablet, 40 MG PO HS, (Reported) TAKES 2 (20MG) TABS Hydrocodone/Acetaminophen 1 Each Tablet, 1 EACH PO Q6H Prescribed by: JOSE RUIZ on 11/19/19 1011 Ondansetron 4 Mg Tab.rapdis, 4 MG PO TID PRN for NAUSEA-1ST LINE, (Reported) Pantoprazole Sodium 40 Mg Tablet.dr, 40 MG PO DAILY Prescribed by: JOSE RUIZ on 11/19/19 1011 Potassium Chloride 10 Meq Capsule.er, 10 MEQ PO TID, (Reported) Prochlorperazine Maleate 25 Mg Supp.rect, 25 MG RC Q8H PRN for NAUSEA/VOMITING Prescribed by: FAMILIA ELISE on 12/11/19 1600 Sucralfate 1 Gm Tablet, 1 GM PO ACHS Prescribed by: JOSE RUIZ on 11/19/19 1011 Tizanidine HCl 4 Mg Tablet, 4 MG PO BID PRN for MUSCLE SPASMS, (Reported) Patient Home Medication List Home Medication List Reviewed: Yes (FAMILIA ELISE APRN) Review of Systems Review of Systems Constitutional: see HPI EENTM: No Symptoms Reported Respiratory: No Symptoms Reported Cardiovascular: No Symptoms Reported Gastrointestinal: See HPI, Abdominal Pain, Nausea Genitourinary: No Symptoms Reported Musculoskeletal: no symptoms reported Skin: no symptoms reported Psychiatric/Neurological: No Symptoms Reported Endocrine: No Symptoms Reported (FAMILIA ELISE APRN) Past Ulvzqce-Gjruva-Xztuiq Hx Patient Social History Drug of Choice: Marijuana every other day- quit 2 weeks ago 2nd Hand Smoke Exposure: No Recent Foreign Travel: No Contact w/Someone Who Travel: No Recent Hopitalizations: No (FAMILIA ELISE APRN) Immunizations Up To Date Tetanus Booster (TDap): More than 5yrs PED Vaccines UTD: No Date of Pneumonia Vaccine: Mar 03, 2014 Date of Influenza Vaccine: Mar 03, 2015 (FAMILIA ELISE APRN) Seasonal Allergies Seasonal Allergies: No (FAMILIA ELISE APRN) Past Medical History Surgeries: Yes Bladder Surgery, Gallbladder, 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, Oophorectomy, Tubal Ligation Respiratory: Yes Asthma Currently Using CPAP: No Currently Using BIPAP: No Cardiac: No Neurological: Yes ("SEIZURE WITH LOW BP" PER PT, tremors) Headaches /Migraines, Seizure Disorder 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 Disorders: Yes (ST 2005--NO PHYSICIAN DOCUMENTATION OF ANY KIND OF CANCER) 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 Disorders: Denies 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 Sexually Transmitted Disease: Yes (HPV) HIV/AIDS: No Genitourinary: Yes Bladder Infection Gastrointestinal: Yes Gastroesophageal Reflux, Irritable Bowel Musculoskeletal: Yes Chronic Back Pain Endocrine: No HEENT: Yes (POOR DENTITION) Loss of Vision: Denies Cancer: No (NO PHYSICIAN DOCUMENTATION / VERIFICATION OF ANY KIND OF CANCER) Cervical, Colon Psychosocial: Yes (MARIJUANA USE EVERY OTHER DAY ) Anxiety, Depression Integumentary: No Blood Disorders: No Adverse Reaction/Blood Tranf: No (FAMILIA ELISE APRN) Family Medical History Diabetes mellitus 19 FATHER FHx: brain tumor 19 MOTHER HPV infection G8 SISTER No Family History of: AIDS Abdominal aortic aneurysm [place]'s disease Alcoholism Alzheimer's disease Aphasia Arthritis Asthma Cancer of mouth Cardiovascular disease Cataracts Colon cancer Completed stroke Congenital disease Congenital heart disease Coronary thrombosis Cystic fibrosis Deafness or hearing loss Dementia Drug abuse Dysphasia Fibrocystic disease of breast Gastroenteritis Glaucoma Headache disorder Hypercholesterolemia Hypertension Infertility Kidney disease Myocardial infarction Neoplasm Not obtainable due to adoption Osteoporosis Parkinson's disease Prostate cancer Psychosocial problem Respiratory disorder Seizure disorder Severe allergy Thyroid disease Tuberculosis Visual disorder Heart Disease, Hypertension, Other Conditions/Hx (FAMILIA ELISE APRN) Physical Exam Vital Signs Vital Signs - First Documented 01/10/20 21:10 Temp 36.9 Pulse 111 Resp 18 B/P (MAP) 195/124 (147) Pulse Ox 97 O2 Delivery Room Air (PAULA FOSTER) Vital Signs Capillary Refill : (FAMILIA ELISE APRN) Height/Weight/BMI Height: 5'6.00" Weight: 203lbs. 6.4oz. [id number]; 29.00 BMI Method:Stated General Appearance: WD/WN, no apparent distress Neck: non-tender, full range of motion Respiratory: normal breath sounds, no respiratory distress, no accessory muscle use Cardiovascular: no murmur, tachycardia (sinus narrow complex rate of 140) Gastrointestinal: normal bowel sounds, non tender, soft Extremities: normal range of motion, non-tender Neurologic/Psychiatric: alert, normal mood/affect, oriented x 3 Skin: normal color, warm/dry (FAMILIA ELISE APRN) Progress/Results/Core Measures Results/Orders Lab Results Laboratory Tests Test 01/10/20 21:15 Range/Units White Blood Count 9.5 4.3-11.0 10^3/uL Red Blood Count 5.17 4.35-5.85 10^6/uL Hemoglobin 14.7 11.5-16.0 G/DL Hematocrit 45 35-52 % Mean Corpuscular Volume 87 80-99 FL Mean Corpuscular Hemoglobin 28 25-34 PG Mean Corpuscular Hemoglobin Concent 33 32-36 G/DL Red Cell Distribution Width 15.5 H 10.0-14.5 % Platelet Count 428 H 130-400 10^3/uL Mean Platelet Volume 9.3 7.4-10.4 FL Neutrophils (%) (Auto) 57 42-75 % Lymphocytes (%) (Auto) 32 12-44 % Monocytes (%) (Auto) 11 0-12 % Eosinophils (%) (Auto) 0 0-10 % Basophils (%) (Auto) 0 0-10 % Neutrophils # (Auto) 5.4 1.8-7.8 X 10^3 Lymphocytes # (Auto) 3.0 1.0-4.0 X 10^3 Monocytes # (Auto) 1.0 0.0-1.0 X 10^3 Eosinophils # (Auto) 0.0 0.0-0.3 10^3/uL Basophils # (Auto) 0.0 0.0-0.1 10^3/uL Sodium Level 146 H 135-145 MMOL/L Potassium Level 4.0 3.6-5.0 MMOL/L Chloride Level 104 98-107 MMOL/L Carbon Dioxide Level 24 21-32 MMOL/L Anion Gap 18 H 5-14 MMOL/L Blood Urea Nitrogen 9 7-18 MG/DL Creatinine 1.15 0.60-1.30 MG/DL Estimat Glomerular Filtration Rate 52 BUN/Creatinine Ratio 8 Glucose Level 138 H 70-105 MG/DL Calcium Level 10.5 H 8.5-10.1 MG/DL Corrected Calcium 8.5-10.1 MG/DL Total Bilirubin 0.2 0.1-1.0 MG/DL Aspartate Amino Transf (AST/SGOT) 29 5-34 U/L Alanine Aminotransferase (ALT/SGPT) 57 H 0-55 U/L Alkaline Phosphatase 105 40-136 U/L Total Protein 8.5 H 6.4-8.2 GM/DL Albumin 4.8 H 3.2-4.5 GM/DL Lipase 53 8-78 U/L Serum Test, Qualitative NEGATIVE NEGATIVE (PAULA FOSTER) Medications Given in ED Current Medications Medications Dose Ordered Sig/Judi Route Start Time Stop Time Status Last Admin Dose Admin Diphenhydramine HCl 50 mg ONCE ONCE IVP 01/10/20 21:15 01/10/20 21:16 DC 01/10/20 21:39 50 MG Haloperidol Lactate 5 mg ONCE ONCE IV 01/10/20 21:15 01/10/20 21:16 DC 01/10/20 21:38 5 MG Hydralazine HCl 20 mg ONCE ONCE IV 01/10/20 21:30 01/10/20 21:31 DC 01/10/20 21:38 20 MG Lorazepam 1 mg ONCE ONCE IVP 01/10/20 21:15 01/10/20 21:16 DC 01/10/20 21:39 1 MG Metoprolol Tartrate 5 mg STK-MED ONCE .ROUTE 01/10/20 22:20 01/10/20 22:24 DC 01/10/20 22:25 5 MG Sodium Chloride 1,000 ml @ ud STK-MED ONCE .ROUTE 01/10/20 21:07 01/10/20 21:12 DC 01/10/20 21:38 1,000 MLS/HR (PAULA FOSTER) Vital Signs/I&O 01/10/20 21:10 Temp 36.9 Pulse 111 Resp 18 B/P (MAP) 195/124 (147) Pulse Ox 97 O2 Delivery Room Air (PAULA FOSTER) Progress Progress Note : Time: 23:01 Progress Note Patient was asleep in the room. Her nausea is gone. She has only had 1 small episode of biliary emesis since she arrived. She says her symptoms are significantly improved. She is not able to produce a urine but she did receive 2 L of fluid. Encourage to go home drink some fluids and get some sleep. Follow-up with primary care. Return precautions given. She has not endorsing any urinary sympto ms when she arrived. (PAULA FOSTER) Departure Communication (Admissions) 2245-hr down to 101. nausea is better. awaiting UA results, 2nd liter of IVF infusing. Care turned over to Dr Foster. (FAMILIA ELISE APRN) Impression Primary Impression: Nausea & vomiting Disposition: 01 HOME, SELF-CARE Condition: Stable Departure-Patient Inst. Decision time for Depature: 21:27 (FAMILIA ELISE APRN) Referrals: [facility] [place] ([place]) Primary Care Physician SCARLET ALVES (Family) Primary Care Physician Patient Instructions: No Instuctions Given Add. Discharge Instructions: Drink plenty fluids and get some sleep. Return to the ER if you have fever or chills or intractable nausea and vomiting. Follow-up with your primary care provider. FAMILIA ELISE APRN Jan 10, 2020 21:15 PAULA FOSTER Jan 10, 2020 23:02
[2020-01-10 21:23] LABS: BASOPHILS % (AUTO) 0 % (0-10); EOSINOPHILS % (AUTO) 0 % (0-10); HEMATOCRIT 45 % (35-52); HEMOGLOBIN 14.7 G/DL (11.5-16.0); LYMPHOCYTES % (AUTO) 32 % (12-44); MEAN CORPUSCULAR HEMOGLOBIN 28 PG (25-34); MEAN CORPUSCULAR HGB CONC 33 G/DL (32-36); MEAN CORPUSCULAR VOLUME 87 FL (80-99); MEAN PLATELET VOLUME 9.3 FL (7.4-10.4); MONOCYTES % (AUTO) 11 % (0-12); NEUTROPHILS # (AUTO) 5.4 X 10^3 (1.8-7.8); NEUTROPHILS % (AUTO) 57 % (42-75); PLATELET COUNT 428 10^3/uL (130-400); RED CELL DISTRIBUTION WIDTH 15.5 % (10.0-14.5); WHITE BLOOD COUNT 9.5 10^3/uL (4.3-11.0)
[2020-01-10] MEDS ORDERED: hydrALAZINE (APESOLINE) 20 MG/ML VIAL IV ONE (21:30)
[2020-01-10 21:34] LABS: ALBUMIN 4.8 GM/DL (3.2-4.5); CHLORIDE 104 MMOL/L (98-107); SODIUM 146 MMOL/L (135-145)
[2020-01-10 21:35] LABS: CALCIUM 10.5 MG/DL (8.5-10.1)
[2020-01-10 21:36] LABS: GLUCOSE 138 MG/DL (70-105); TOTAL PROTEIN 8.5 GM/DL (6.4-8.2)
[2020-01-10 21:37] LABS: CARBON DIOXIDE 24 MMOL/L (21-32)
[2020-01-10 21:38] LABS: BILIRUBIN,TOTAL 0.2 MG/DL (0.1-1.0)
[2020-01-10 21:40] LABS: ALKALINE PHOSPHATASE 105 U/L (40-136); CREATININE SERUM 1.15 MG/DL (0.60-1.30); GFR ESTIMATED 52
[2020-01-10 21:41] LABS: BUN/CREATININE RATIO 8
[2020-01-10 21:43] LABS: ALANINE AMINOTRANSFERASE 57 U/L (0-55); LIPASE 53 U/L (8-78)
[2020-01-10] MEDS ORDERED: LACTATED RINGERS 1,000 ML IV SCH (21:45)
[2020-01-10] MEDS ORDERED: meTOprolol 5 MG/5 ML (LOPRESSOR) VIAL ONE (22:20)
[2020-01-10] MEDS ORDERED: meTOprolol 5 MG/5 ML (LOPRESSOR) VIAL IV ONE (22:30)
[2020-01-10 23:17] VITALS: BP 150/100
== END 2020-01-10 23:10 | disposition home or self-care (01) ==
LOC: EDUNIT# 21:04 → ER 21:05
DX: R11.2 Nausea with vomiting, unspecified (principal); K21.9 Gastro-esophageal reflux disease without esophagitis; K58.9 Irritable bowel syndrome, unspecified; F41.9 Anxiety disorder, unspecified; F32.9 Major depressive disorder, single episode, unspecified; G43.909 Migraine, unspecified, not intractable, without status migrainosus; G89.29 Other chronic pain; M54.9 Dorsalgia, unspecified; Z85.41 Personal history of malignant neoplasm of cervix uteri; Z85.038 Personal history of other malignant neoplasm of large intestine; Z79.891 Long term (current) use of opiate analgesic; Z88.5 Allergy status to narcotic agent; Z88.8 Allergy status to other drugs, medicaments and biological substances; Z88.6 Allergy status to analgesic agent; Z79.82 Long term (current) use of aspirin
CPT/HCPCS: 36415; 80053; 83690; 84703; 85025

== ENCOUNTER 2020-01-30 17:32 | Emergency (ER) | payer SELFPAY ==
[~2020-01-30] VITALS: Ht 167 cm; Wt 77.0 kg
[2020-01-30] MEDS ORDERED: TOBRAMYCIN (TOBREX) 0.3% OPHTH SOLN 5 ML OD ONE (18:00)
[2020-01-30] MEDS ORDERED: NS IV 1000 ML 1,000 ML IV ONE (18:45)
[2020-01-30] MEDS ORDERED: diphenhydrAMINE 50 MG/ML INJ (BENADRYL) IVP ONE (18:45)
[2020-01-30] MEDS ORDERED: meTOprolol 5 MG/5 ML (LOPRESSOR) VIAL IV ONE (18:45)
[2020-01-30 18:49] LABS: BASOPHILS % (AUTO) 0 % (0-10); EOSINOPHILS % (AUTO) 0 % (0-10); HEMATOCRIT 44 % (35-52); HEMOGLOBIN 14.5 G/DL (11.5-16.0); LYMPHOCYTES # (AUTO) 1.9 X 10^3 (1.0-4.0); LYMPHOCYTES % (AUTO) 23 % (12-44); MEAN CORPUSCULAR HEMOGLOBIN 28 PG (25-34); MEAN CORPUSCULAR HGB CONC 33 G/DL (32-36); MEAN CORPUSCULAR VOLUME 87 FL (80-99); MEAN PLATELET VOLUME 9.4 FL (7.4-10.4); MONOCYTES # (AUTO) 0.7 X 10^3 (0.0-1.0); MONOCYTES % (AUTO) 8 % (0-12); NEUTROPHILS # (AUTO) 5.6 X 10^3 (1.8-7.8); NEUTROPHILS % (AUTO) 69 % (42-75); PLATELET COUNT 482 10^3/uL (130-400); RED CELL DISTRIBUTION WIDTH 15.5 % (10.0-14.5); WHITE BLOOD COUNT 8.1 10^3/uL (4.3-11.0)
[2020-01-30 18:52] LABS: ALBUMIN 5.1 GM/DL (3.2-4.5); CHLORIDE 98 MMOL/L (98-107); POTASSIUM 3.9 MMOL/L (3.6-5.0); SODIUM 142 MMOL/L (135-145)
[2020-01-30 18:55] LABS: GLUCOSE 115 MG/DL (70-105)
[2020-01-30 18:56] LABS: BILIRUBIN,TOTAL 0.3 MG/DL (0.1-1.0); CARBON DIOXIDE 24 MMOL/L (21-32)
[2020-01-30 18:58] LABS: ALKALINE PHOSPHATASE 111 U/L (40-136); CREATININE SERUM 1.16 MG/DL (0.60-1.30); GFR ESTIMATED 51
[2020-01-30 18:59] LABS: BUN/CREATININE RATIO 15
[2020-01-30 19:01] LABS: ALANINE AMINOTRANSFERASE 69 U/L (0-55)
[2020-01-30 19:02] LABS: CREATINE KINASE 25 U/L (29-168); LIPASE 43 U/L (8-78)
--- NOTE | 2020-01-30 19:10 | NUR ---
pt denies being able to void at this time.
--- NOTE | 2020-01-30 19:16 | ED Abdominal Pain ---
General Chief Complaint: Abdominal/GI Problems Stated Complaint: CHEST PAIN;VOMITING Nursing Triage Note: PT CO OF ABD PAIN STATES HURTS IN CENTER OF UPPER ABD, PT STATES HAS BEEN VOMITING SINCE 0130 THIS AM. PT STATES WAS SEEN AT [facility] AND HAD GOTTEN PHENERGAN SHOT FOR NAUSEA. PT STATES HAS EGD RECENTLY AND HAS GASTRITIS. PT WAS TOLD TO QUIT SMOKING POT BY DR ALMAZAN TO HELP W STOPPING OF VOMITING Sepsis Screen: No Definite Risk Source of Information: Patient Exam Limitations: Other (intoxication of illicit drugs ) History of Present Illness Date Seen by Provider: Jan 30, 2020 Time Seen by Provider: 18:15 Initial Comments Maggy Martel presented to ED for her chronic nausea/vomiting and epigastric pain. States pain and N/V started around 0130 this am. She was recently diagnosed with gastritis and was told to stop smoking marijuana. She was evaluated and treated at [facility] for her vomiting with Phenergan IM this morning. R eports minimal relief. Denies fever, chills, headache, cough, shortness of breath, constipation and diarrhea. Timing/Duration: 12-24 Hours Severity/Quality: Moderate, Burning, Sharp Location: Epigastric Radiation: No Radiation Activities at Onset: None Modifying Factors: Improves With Analgesics Associated Symptoms: Nausea/Vomiting Allergies and Home Medications Allergies Coded Allergies: morphine (Verified Allergy, Unknown, CAUSES "REBOUND HEADACHES", 08/20/13) baclofen (Verified Adverse Reaction, Severe, 06/13/15) PATIENT UNAWARE OF REACTION BUT WAS HOSPITALIZED AFTER TAKING MEDICATION AND WAS TOLD IT WAS A REACTION DUE TO THE MEDICATION SHE TOOK. meloxicam (Verified Adverse Reaction, Severe, 06/13/15) PATIENT UNAWARE OF REACTION BUT WAS HOSPITALIZED AFTER TAKING MEDICATION AND WAS TOLD IT WAS A REACTION DUE TO THE MEDICATION SHE TOOK. NSAIDS (Non-Steroidal Anti-Inflamma (Verified Adverse Reaction, Mild, have IBS and avoid NSAIDS, 12/04/12) Home Medications Amlodipine Besylate 5 Mg Tablet, 5 MG PO DAILY Prescribed by: JOSE RUIZ on 11/19/19 1011 Aspirin/Acetaminophen/Caffeine 1 Each Tablet, 2 EACH PO Q6-8HR PRN for Headache, (Reported) Dicyclomine HCl 20 Mg Tablet, 20 MG PO QID, (Reported) Doxepin HCl 100 Mg Capsule, 100 MG PO HS, (Reported) LAST FILLED 09-23-2019 #30 Famotidine 20 Mg Tablet, 40 MG PO HS, (Reported) TAKES 2 (20MG) TABS Hydrocodone/Acetaminophen 1 Each Tablet, 1 EACH PO Q6H Prescribed by: JOSE RUIZ on 11/19/19 101 Ondansetron 4 Mg Tab.rapdis, 4 MG PO TID PRN for NAUSEA-1ST LINE, (Reported) Ondansetron 4 Mg Tab.rapdis, 4 MG PO Q4H PRN for NAUSEA/VOMITING Prescribed by: LYN LUND on 01/30/202034 Pantoprazole Sodium 40 Mg Tablet.dr, 40 MG PO DAILY Prescribed by: JOSE RUIZ on 11/19/19 101 Potassium Chloride 10 Meq Capsule.er, 10 MEQ PO TID, (Reported) Prochlorperazine Maleate 25 Mg Supp.rect, 25 MG RC Q8H PRN for NAUSEA/VOMITING Prescribed by: FAMILIA ELISE on 12/11/19 1600 Sucralfate 1 Gm Tablet, 1 GM PO ACHS Prescribed by: JOSE RUIZ on 11/19/19 101 Tizanidine HCl 4 Mg Tablet, 4 MG PO BID PRN for MUSCLE SPASMS, (Reported) Patient Home Medication List Home Medication List Reviewed: Yes Review of Systems Review of Systems Constitutional: no symptoms reported EENTM: No Symptoms Reported Respiratory: No Symptoms Reported Cardiovascular: See HPI; Denies Chest Pain, Denies Lightheadedness, Denies Syncope Gastrointestinal: See HPI, Nausea, Poor Fluid Intake, Vomiting Genitourinary: No Symptoms Reported Musculoskeletal: no symptoms reported Skin: no symptoms reported Psychiatric/Neurological: No Symptoms Reported Endocrine: No Symptoms Reported Hematologic/Lymphatic: No Symptoms Reported Past Vtiaxje-Zmdxwp-Srhrwm Hx Patient Social History Alcohol Use: Denies Use Recreational Drug Use: Yes (former hx) Drug of Choice: cannabis Smoking Status: Never a Smoker 2nd Hand Smoke Exposure: No Recent Foreign Travel: No Contact w/Someone Who Travel: No Recent Infectious Disease Expo: No Recent Hopitalizations: No Immunizations Up To Date Tetanus Booster (TDap): Unknown PED Vaccines UTD: No Date of Pneumonia Vaccine: Mar 03, 2014 Date of Influenza Vaccine: Mar 03, 2015 Seasonal Allergies Seasonal Allergies: No Past Medical History Surgeries: No Bladder Surgery, Gallbladder, 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, Oophorectomy, Tubal Ligation Respiratory: No Asthma Currently Using CPAP: No Currently Using BIPAP: No Cardiac: No Hypertension, Syncope Neurological: Yes Seizure Disorder 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 Disorders: Yes (HYST 2005--NO PHYSICIAN DOCUMENTATION OF ANY KIND OF CANCER) 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 Disorders: Denies 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 Sexually Transmitted Disease: Yes (HPV) HIV/AIDS: No Genitourinary: No Bladder Infection Gastrointestinal: No Gastroesophageal Reflux, Irritable Bowel Musculoskeletal: No Chronic Back Pain Endocrine: No HEENT: No Loss of Vision: Denies Cancer: No Cervical, Colon Psychosocial: No Anxiety, Depression Integumentary: No Blood Disorders: No Adverse Reaction/Blood Tranf: No Family Medical History Diabetes mellitus 19 FATHER FHx: brain tumor 19 MOTHER HPV infection G8 SISTER No Family History of: AIDS Abdominal aortic aneurysm [place]'s disease Alcoholism Alzheimer's disease Aphasia Arthritis Asthma Cancer of mouth Cardiovascular disease Cataracts Colon cancer Completed stroke Congenital disease Congenital heart disease Coronary thrombosis Cystic fibrosis Deafness or hearing loss Dementia Drug abuse Dysphasia Fibrocystic disease of breast Gastroenteritis Glaucoma Headache disorder Hypercholesterolemia Hypertension Infertility Kidney disease Myocardial infarction Neoplasm Not obtainable due to adoption Osteoporosis Parkinson's disease Prostate cancer Psychosocial problem Respiratory disorder Seizure disorder Severe allergy Thyroid disease Tuberculosis Visual disorder Heart Disease, Hypertension, Other Conditions/Hx Physical Exam Vital Signs Vital Signs - First Documented 01/30/20 01/30/20 17:39 20:38 Temp 36.4 Pulse 104 Resp 18 B/P (MAP) 197/135 (155) Pulse Ox 99 O2 Delivery Room Air Capillary Refill : Less Than 3 Seconds Height/Weight/BMI Height: 5'6.00" Weight: 203lbs. 6.4oz. 92.557807bm; 27.00 BMI Method:Stated General Appearance: WD/WN, no apparent distress HEENT: PERRL/EOMI, normal ENT inspection, other (erythematous pharynx ) Neck: non-tender, full range of motion, supple, normal inspection Respiratory: chest non-tender, lungs clear, normal breath sounds, no respiratory distress, no accessory muscle use Cardiovascular: regular rate, rhythm, no edema, no murmur, tachycardia Gastrointestinal: normal bowel sounds, soft; No distended, No rebound Extremities: normal range of motion, non-tender, normal inspection Neurologic/Psychiatric: no motor/sensory deficits, alert, normal mood/affect, oriented x 3 Skin: normal color, warm/dry Progress/Results/Core Measures Results/Orders Lab Results Laboratory Tests Test 01/30/20 17:55 Range/Units White Blood Count 8.1 4.3-11.0 10^3/uL Red Blood Count 5.12 4.35-5.85 10^6/uL Hemoglobin 14.5 11.5-16.0 G/DL Hematocrit 44 35-52 % Mean Corpuscular Volume 87 80-99 FL Mean Corpuscular Hemoglobin 28 25-34 PG Mean Corpuscular Hemoglobin Concent 33 32-36 G/DL Red Cell Distribution Width 15.5 H 10.0-14.5 % Platelet Count 482 H 130-400 10^3/uL Mean Platelet Volume 9.4 7.4-10.4 FL Neutrophils (%) (Auto) 69 42-75 % Lymphocytes (%) (Auto) 23 12-44 % Monocytes (%) (Auto) 8 0-12 % Eosinophils (%) (Auto) 0 0-10 % Basophils (%) (Auto) 0 0-10 % Neutrophils # (Auto) 5.6 1.8-7.8 X 10^3 Lymphocytes # (Auto) 1.9 1.0-4.0 X 10^3 Monocytes # (Auto) 0.7 0.0-1.0 X 10^3 Eosinophils # (Auto) 0.0 0.0-0.3 10^3/uL Basophils # (Auto) 0.0 0.0-0.1 10^3/uL Sodium Level 142 135-145 MMOL/L Potassium Level 3.9 3.6-5.0 MMOL/L Chloride Level 98 98-107 MMOL/L Carbon Dioxide Level 24 21-32 MMOL/L Anion Gap 20 H 5-14 MMOL/L Blood Urea Nitrogen 17 7-18 MG/DL Creatinine 1.16 0.60-1.30 MG/DL Estimat Glomerular Filtration Rate 51 BUN/Creatinine Ratio 15 Glucose Level 115 H 70-105 MG/DL Calcium Level 11.0 H 8.5-10.1 MG/DL Corrected Calcium 8.5-10.1 MG/DL Total Bilirubin 0.3 0.1-1.0 MG/DL Aspartate Amino Transf (AST/SGOT) 37 H 5-34 U/L Alanine Aminotransferase (ALT/SGPT) 69 H 0-55 U/L Alkaline Phosphatase 111 40-136 U/L Total Creatine Kinase 25 L 29-168 U/L Troponin I < 0.028 <0.028 NG/ML Total Protein 9.0 H 6.4-8.2 GM/DL Albumin 5.1 H 3.2-4.5 GM/DL Lipase 43 8-78 U/L My Orders Orders - LYN LUND PROPERTY OFFICER Tobramycin 0.3% Ophth Soln (Tobrex 0.3% (01/30/20 18:00) Cbc With Automated Diff (01/30/20 18:38) Comprehensive Metabolic Panel (01/30/20 18:38) Urinalysis (01/30/20 18:38) Troponin I (01/30/20 18:38) Creatine Kinase (01/30/20 18:38) Ekg Tracing (01/30/20 18:38) Ns Iv 1000 Ml (Sodium Chloride 0.9%) (01/30/20 18:45) Diphenhydramine Injection (Benadryl Inje (01/30/20 18:45) Metoprolol Tartrate Injection (Lopressor (01/30/20 18:45) Lipase (01/30/20 18:38) Haloperidol Injection (Haldol Injectio (01/30/20 19:30) Lorazepam Injection (Ativan Injection) (01/30/20 19:30) Medications Given in ED Current Medications Medications Dose Ordered Sig/Judi Route Start Time Stop Time Status Last Admin Dose Admin Diphenhydramine HCl 50 mg ONCE ONCE IVP 01/30/20 18:45 01/30/20 18:46 DC 01/30/20 19:09 50 MG Haloperidol Lactate 5 mg ONCE ONCE IM 01/30/20 19:30 01/30/20 19:31 DC 01/30/20 19:43 5 MG Lorazepam 1 mg ONCE ONCE IVP 01/30/20 19:30 01/30/20 19:31 DC 01/30/20 19:43 1 MG Metoprolol Tartrate 5 mg ONCE ONCE IV 01/30/20 18:45 01/30/20 18:46 DC 01/30/20 19:08 5 MG Sodium Chloride 1,000 ml @ 999 mls/hr Q1H ONCE IV 01/30/20 18:45 01/30/20 19:45 DC 01/30/20 19:07 999 MLS/HR Vital Signs/I&O 01/30/20 01/30/20 17:39 20:38 Temp 36.4 36.6 Pulse 104 87 Resp 18 18 B/P (MAP) 197/135 (155) 150/94 (155) Pulse Ox 99 99 O2 Delivery Room Air 01/31/20 00:00 Intake Total 1000 ml Balance 1000 ml Blood Pressure Mean: 155 Progress Progress Note : Progress Note Chronic Nausea/vomiting and gastritis. Labs ordered, cardiac markers and EKG to rule out [facility]. Given Benadryl, Haldol, and Ativan for nausea/vomiting. Metoprolol 5mg IV given for elevated BP and tachycardia. After resting in ED for apx 45 mins she reports improved symptoms. No vomiting witnessed after receiving medications. Reviewed POC and she is agreeable with plan. Departure Impression Primary Impression: Nausea and vomiting Disposition: 01 HOME, SELF-CARE Condition: Improved Departure-Patient Inst. Referrals: [facility] (PCP) Primary Care Physician SCARLET ALVES (Family) Primary Care Physician Add. Discharge Instructions: Plan: 1. Discharge home. 2. Drink clear liquids and increase fluid intake. 3. May take Zofran 4mg ODT every four hours as needed for nausea. 4. Return for any new or concerning symptoms. All discharge instructions reviewed with patient and/or family. Voiced understanding. Scripts Ondansetron (Ondansetron Odt) 4 Mg Tab.rapdis 4 MG PO Q4H PRN for NAUSEA/VOMITING, #30 TAB 0 Refills Prov: LYN LUND APRN 01/30/20 Copy Copies To 1: [facility]LYN CABRAL PROPERTY OFFICER Jan 30, 2020 19:16
[2020-01-30] MEDS ORDERED: LORazepam INJ 2 MG/ML (ATIVAN) VIAL IVP ONE (19:30)
[2020-01-30] MEDS ORDERED: HALOPERIDOL 5 MG/ML (HALDOL) VIAL IM ONE (19:30)
[2020-01-30] MEDS ORDERED: ONDA4TAB11 PO (20:35)
[2020-01-30 20:38] VITALS: BP 150/94
== END 2020-01-30 20:41 | disposition home or self-care (01) ==
LOC: EDUNIT# 17:32 → ER 17:34
DX: R11.2 Nausea with vomiting, unspecified (principal); K21.9 Gastro-esophageal reflux disease without esophagitis; I10 Essential (primary) hypertension; K58.9 Irritable bowel syndrome, unspecified; F41.9 Anxiety disorder, unspecified; F32.9 Major depressive disorder, single episode, unspecified; G89.29 Other chronic pain; M54.9 Dorsalgia, unspecified; Z88.5 Allergy status to narcotic agent; Z88.6 Allergy status to analgesic agent; Z88.8 Allergy status to other drugs, medicaments and biological substances; Z85.41 Personal history of malignant neoplasm of cervix uteri; Z85.038 Personal history of other malignant neoplasm of large intestine; Z79.82 Long term (current) use of aspirin; Z79.891 Long term (current) use of opiate analgesic
CPT/HCPCS: 36415; 80053; 82550; 83690; 84484; 85025; 93005

== ENCOUNTER 2020-05-01 17:02 | Emergency (ER) | payer SELFPAY ==
[~2020-05-01] VITALS: Ht 167 cm; Wt 93.0 kg
[~2020-05-01 17:02] MED LIST changes: -ACET-2715 PO; +ACET-3075 PO; +AMLO-250 PO; +AMLO-251 PO; -AMLO10TA7 PO; -AMLO5TAB9 PO; -HYDR-3812 PO; -PANT40TA3 PO; +PANT40TA52 PO
--- NOTE | 2020-05-01 17:12 | ED Abdominal Pain ---
General Stated Complaint: N/V Source of Information: Patient Exam Limitations: No Limitations History of Present Illness Date Seen by Provider: May 01, 2020 Time Seen by Provider: 17:11 Initial Comments To ER with epigastric discomfort and nausea and vomiting. She has a history of multiple visits for this. She has seen surgery for this. She denies smoking any marijuana recently. Timing/Duration: 1-2 Days Severity/Quality: Moderate Location: Epigastric Radiation: No Radiation Activities at Onset: None Allergies and Home Medications Allergies Coded Allergies: morphine (Verified Allergy, Unknown, CAUSES "REBOUND HEADACHES", 08/20/13) baclofen (Verified Adverse Reaction, Severe, 06/13/15) PATIENT UNAWARE OF REACTION BUT WAS HOSPITALIZED AFTER TAKING MEDICATION AND WAS TOLD IT WAS A REACTION DUE TO THE MEDICATION SHE TOOK. meloxicam (Verified Adverse Reaction, Severe, 06/13/15) PATIENT UNAWARE OF REACTION BUT WAS HOSPITALIZED AFTER TAKING MEDICATION AND WAS TOLD IT WAS A REACTION DUE TO THE MEDICATION SHE TOOK. NSAIDS (Non-Steroidal Anti-Inflamma (Verified Adverse Reaction, Mild, have IBS and avoid NSAIDS, 12/04/12) Home Medications Amlodipine Besylate 5 Mg Tablet, 5 MG PO DAILY Prescribed by: JOSE RUIZ on 11/19/19 1011 Aspirin/Acetaminophen/Caffeine 1 Each Tablet, 2 EACH PO Q6-8HR PRN for Headache, (Reported) Dicyclomine HCl 20 Mg Tablet, 20 MG PO QID, (Reported) Doxepin HCl 100 Mg Capsule, 100 MG PO HS, (Reported) LAST FILLED 09-23-2019 #30 Famotidine 20 Mg Tablet, 40 MG PO HS, (Reported) TAKES 2 (20MG) TABS Hydrocodone/Acetaminophen 1 Each Tablet, 1 EACH PO Q6H Prescribed by: JOSE RUIZ on 11/19/19 1011 Ondansetron 4 Mg Tab.rapdis, 4 MG PO TID PRN for NAUSEA-1ST LINE, (Reported) Ondansetron 4 Mg Tab.rapdis, 4 MG PO Q4H PRN for NAUSEA/VOMITING Prescribed by: LYN LUND on 01/30/202034 Pantoprazole Sodium 40 Mg Tablet.dr, 40 MG PO DAILY Prescribed by: JOSE RUIZ on 11/19/19 1011 Potassium Chloride 10 Meq Capsule.er, 10 MEQ PO TID, (Reported) Prochlorperazine Maleate 25 Mg Supp.rect, 25 MG RC Q8H PRN for NAUSEA/VOMITING Prescribed by: FAMILIA ELISE on 12/11/19 1600 Sucralfate 1 Gm Tablet, 1 GM PO ACHS Prescribed by: JOSE RUIZ on 11/19/19 1011 Tizanidine HCl 4 Mg Tablet, 4 MG PO BID PRN for MUSCLE SPASMS, (Reported) Patient Home Medication List Home Medication List Reviewed: Yes Review of Systems Review of Systems Constitutional: see HPI EENTM: No Symptoms Reported Respiratory: No Symptoms Reported Cardiovascular: No Symptoms Reported Gastrointestinal: See HPI, Abdominal Pain, Nausea, Vomiting Genitourinary: No Symptoms Reported Musculoskeletal: no symptoms reported Skin: no symptoms reported Psychiatric/Neurological: No Symptoms Reported Endocrine: No Symptoms Reported Hematologic/Lymphatic: No Symptoms Reported Past Obbpzbl-Elfezx-Ipuqaq Hx Patient Social History Drug of Choice: cannabis 2nd Hand Smoke Exposure: No Recent Foreign Travel: No Contact w/Someone Who Travel: No Recent Hopitalizations: No Immunizations Up To Date Tetanus Booster (TDap): Unknown PED Vaccines UTD: No Date of Pneumonia Vaccine: Mar 03, 2014 Date of Influenza Vaccine: Mar 03, 2015 Seasonal Allergies Seasonal Allergies: No Past Medical History Surgeries: No Bladder Surgery, Gallbladder, 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, Oophorectomy, Tubal Ligation Respiratory: No Asthma Currently Using CPAP: No Currently Using BIPAP: No Cardiac: No Hypertension, Syncope Neurological: Yes Seizure Disorder 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 Disorders: Yes ([facility] 2005--NO PHYSICIAN DOCUMENTATION OF ANY KIND OF CANCER) 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 Disorders: Denies 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 Sexually Transmitted Disease: Yes (HPV) HIV/AIDS: No Genitourinary: No Bladder Infection Gastrointestinal: No Gastroesophageal Reflux, Irritable Bowel Musculoskeletal: No Chronic Back Pain Endocrine: No HEENT: No Loss of Vision: Denies Cancer: No Cervical, Colon Psychosocial: No Anxiety, Depression Integumentary: No Blood Disorders: No Adverse Reaction/Blood Tranf: No Family Medical History Diabetes mellitus 19 FATHER FHx: brain tumor 19 MOTHER HPV infection G8 SISTER No Family History of: AIDS Abdominal aortic aneurysm [place]'s disease Alcoholism Alzheimer's disease Aphasia Arthritis Asthma Cancer of mouth Cardiovascular disease Cataracts Colon cancer Completed stroke Congenital disease Congenital heart disease Coronary thrombosis Cystic fibrosis Deafness or hearing loss Dementia Drug abuse Dysphasia Fibrocystic disease of breast Gastroenteritis Glaucoma Headache disorder Hypercholesterolemia Hypertension Infertility Kidney disease Myocardial infarction Neoplasm Not obtainable due to adoption Osteoporosis Parkinson's disease Prostate cancer Psychosocial problem Respiratory disorder Seizure disorder Severe allergy Thyroid disease Tuberculosis Visual disorder Heart Disease, Hypertension, Other Conditions/Hx Physical Exam Vital Signs Vital Signs - First Documented 05/01/20 17:02 Temp 37.0 Pulse 110 Resp 16 B/P (MAP) 160/115 (130) Pulse Ox 97 O2 Delivery Room Air Capillary Refill : Height/Weight/BMI Height: 5'6.00" Weight: 203lbs. 6.4oz. [id number]; 27.00 BMI Method:Stated General Appearance: WD/WN, no apparent distress Neck: non-tender, full range of motion Respiratory: normal breath sounds, no respiratory distress, no accessory muscle use Cardiovascular: regular rate, rhythm, no murmur Gastrointestinal: normal bowel sounds, non tender, soft Extremities: normal range of motion, non-tender Neurologic/Psychiatric: alert, normal mood/affect, oriented x 3 Skin: normal color, warm/dry Progress/Results/Core Measures Results/Orders Lab Results Laboratory Tests Test 05/01/20 17:10 05/01/20 18:19 Range/Units White Blood Count 10.8 4.3-11.0 10^3/uL Red Blood Count 4.99 3.80-5.11 10^6/uL Hemoglobin 13.9 11.5-16.0 g/dL Hematocrit 45 35-52 % Mean Corpuscular Volume 89 80-99 fL Mean Corpuscular Hemoglobin 28 25-34 pg Mean Corpuscular Hemoglobin Concent 31 L 32-36 g/dL Red Cell Distribution Width 14.3 10.0-14.5 % Platelet Count 460 H 130-400 10^3/uL Mean Platelet Volume 9.3 9.0-12.2 fL Immature Granulocyte % (Auto) 0 % Neutrophils (%) (Auto) 60 42-75 % Lymphocytes (%) (Auto) 30 12-44 % Monocytes (%) (Auto) 9 0-12 % Eosinophils (%) (Auto) 1 0-10 % Basophils (%) (Auto) 0 0-10 % Neutrophils # (Auto) 6.5 1.8-7.8 10^3/uL Lymphocytes # (Auto) 3.2 1.0-4.0 10^3/uL Monocytes # (Auto) 1.0 0.0-1.0 10^3/uL Eosinophils # (Auto) 0.1 0.0-0.3 10^3/uL Basophils # (Auto) 0.0 0.0-0.1 10^3/uL Immature Granulocyte # (Auto) 0.0 0.0-0.1 10^3/uL Sodium Level 144 135-145 MMOL/L Potassium Level 3.6 3.6-5.0 MMOL/L Chloride Level 100 98-107 MMOL/L Carbon Dioxide Level 27 21-32 MMOL/L Anion Gap 17 H 5-14 MMOL/L Blood Urea Nitrogen 10 7-18 MG/DL Creatinine 1.00 0.60-1.30 MG/DL Estimat Glomerular Filtration Rate > 60 BUN/Creatinine Ratio 10 Glucose Level 124 H 70-105 MG/DL Calcium Level 10.0 8.5-10.1 MG/DL Corrected Calcium 8.5-10.1 MG/DL Total Bilirubin 0.5 0.1-1.0 MG/DL Aspartate Amino Transf (AST/SGOT) 29 5-34 U/L Alanine Aminotransferase (ALT/SGPT) 51 0-55 U/L Alkaline Phosphatase 101 40-136 U/L Total Protein 8.5 H 6.4-8.2 GM/DL Albumin 4.8 H 3.2-4.5 GM/DL Lipase 76 8-78 U/L Serum Test, Qualitative NEGATIVE NEGATIVE Urine Color YELLOW Urine Clarity CLEAR Urine pH 7.0 5-9 Urine Specific [place] 1.020 1.016-1.022 Urine Protein TRACE H NEGATIVE Urine Glucose (UA) NEGATIVE NEGATIVE Urine Ketones TRACE H NEGATIVE Urine Nitrite NEGATIVE NEGATIVE Urine Bilirubin NEGATIVE NEGATIVE Urine Urobilinogen 0.2 < = 1.0 MG/DL Urine Leukocyte Esterase NEGATIVE NEGATIVE Urine RBC (Auto) NEGATIVE NEGATIVE Urine RBC 0-2 /HPF Urine WBC 0-2 /HPF Urine Squamous Epithelial Cells 2-5 /HPF Urine Crystals NONE /LPF Urine Bacteria TRACE /HPF Urine Casts NONE /LPF Urine Mucus LARGE H /LPF Urine Culture Indicated NO Urine Opiates Screen NEGATIVE NEGATIVE Urine Oxycodone Screen NEGATIVE NEGATIVE Urine Methadone Screen NEGATIVE NEGATIVE Urine Propoxyphene Screen NEGATIVE NEGATIVE Urine Barbiturates Screen NEGATIVE NEGATIVE Ur Tricyclic Antidepressants Screen NEGATIVE NEGATIVE Urine Phencyclidine Screen NEGATIVE NEGATIVE Urine Amphetamines Screen NEGATIVE NEGATIVE Urine Methamphetamines Screen NEGATIVE NEGATIVE Urine Benzodiazepines Screen NEGATIVE NEGATIVE Urine Cocaine Screen NEGATIVE NEGATIVE Urine Cannabinoids Screen NEGATIVE NEGATIVE My Orders Orders - FAMILIA ELISE APRN Haloperidol Injection (Haldol Injectio (05/01/20 17:15) Pantoprazole Injection (Protonix Injecti (05/01/20 17:15) Ns Iv 1000 Ml (Sodium Chloride 0.9%) (05/01/20 17:15) Diphenhydramine Injection (Benadryl Inje (05/01/20 17:15) Cbc With Automated Diff (05/01/20 17:08) Comprehensive Metabolic Panel (05/01/20 17:08) Lipase (05/01/20 17:08) Hcg,Qualitative Serum (05/01/20 17:08) Ed Iv/Invasive Line Start (05/01/20 17:08) Ua Culture If Indicated (05/01/20 17:17) Drug Screen Stat (Urine) (05/01/20 17:17) Medications Given in ED Current Medications Medications Dose Ordered Sig/Judi Route Start Time Stop Time Status Last Admin Dose Admin Diphenhydramine HCl 50 mg ONCE ONCE IVP 05/01/20 17:15 05/01/20 17:16 DC 05/01/20 17:20 50 MG Haloperidol Lactate 5 mg ONCE ONCE IV 05/01/20 17:15 05/01/20 17:16 DC 05/01/20 17:22 5 MG Pantoprazole 40 mg ONCE ONCE IV 05/01/20 17:15 05/01/20 17:16 DC 05/01/20 17:20 40 MG Vital Signs/I&O 05/01/20 17:02 Temp 37.0 Pulse 110 Resp 16 B/P (MAP) 160/115 (130) Pulse Ox 97 O2 Delivery Room Air Departure Impression Primary Impression: Nausea & vomiting Disposition: 01 HOME, SELF-CARE Condition: Stable Departure-Patient Inst. Decision time for Depature: 17:57 Referrals: [facility] (PCP) Primary Care Physician SCARLET ALVES (Family) Primary Care Physician Patient Instructions: Nausea and Vomiting, Adult Add. Discharge Instructions: 1. Nausea medication as directed 2. Return to ER for any concerns 3. Follow-up with your doctor this week. Scripts Prochlorperazine Maleate (Compazine) 10 Mg Tablet 10 MG PO Q8H PRN for NAUSEA/VOMITING, #10 TAB Prov: FAMILIA ELISE APRN 05/01/20 FAMILIA ELISE APRN May 01, 2020 17:12
[2020-05-01] MEDS ORDERED: PANTOPRAZOLE 40 MG (PROTONIX) VIAL IV ONE (17:15)
[2020-05-01] MEDS ORDERED: diphenhydrAMINE 50 MG/ML INJ (BENADRYL) IVP ONE (17:15)
[2020-05-01] MEDS ORDERED: NS IV 1000 ML 1,000 ML IV SCH (17:15)
[2020-05-01] MEDS ORDERED: HALOPERIDOL 5 MG/ML (HALDOL) VIAL IV ONE (17:15)
[2020-05-01 17:21] LABS: BASOPHILS % (AUTO) 0 % (0-10); EOSINOPHILS # (AUTO) 0.1 10^3/uL (0.0-0.3); EOSINOPHILS % (AUTO) 1 % (0-10); HEMATOCRIT 45 % (35-52); HEMOGLOBIN 13.9 g/dL (11.5-16.0); LYMPHOCYTES # (AUTO) 3.2 10^3/uL (1.0-4.0); LYMPHOCYTES % (AUTO) 30 % (12-44); MEAN CORPUSCULAR HEMOGLOBIN 28 pg (25-34); MEAN CORPUSCULAR HGB CONC 31 g/dL (32-36); MEAN CORPUSCULAR VOLUME 89 fL (80-99); MEAN PLATELET VOLUME 9.3 fL (9.0-12.2); MONOCYTES % (AUTO) 9 % (0-12); NEUTROPHILS # (AUTO) 6.5 10^3/uL (1.8-7.8); NEUTROPHILS % (AUTO) 60 % (42-75); PLATELET COUNT 460 10^3/uL (130-400); WHITE BLOOD COUNT 10.8 10^3/uL (4.3-11.0)
[2020-05-01 17:30] LABS: ALBUMIN 4.8 GM/DL (3.2-4.5)
[2020-05-01 17:31] LABS: CHLORIDE 100 MMOL/L (98-107); POTASSIUM 3.6 MMOL/L (3.6-5.0); SODIUM 144 MMOL/L (135-145)
[2020-05-01 17:33] LABS: GLUCOSE 124 MG/DL (70-105); TOTAL PROTEIN 8.5 GM/DL (6.4-8.2)
[2020-05-01 17:34] LABS: CARBON DIOXIDE 27 MMOL/L (21-32)
[2020-05-01 17:35] LABS: BILIRUBIN,TOTAL 0.5 MG/DL (0.1-1.0)
[2020-05-01 17:36] LABS: ALKALINE PHOSPHATASE 101 U/L (40-136)
[2020-05-01 17:37] LABS: GFR ESTIMATED > 60
[2020-05-01 17:38] LABS: BUN/CREATININE RATIO 10
[2020-05-01 17:39] LABS: ALANINE AMINOTRANSFERASE 51 U/L (0-55)
[2020-05-01 17:40] LABS: LIPASE 76 U/L (8-78)
[2020-05-01 18:26] LABS: BILIRUBIN,URINE NEGATIVE (NEGATIVE); CLARITY,URINE CLEAR; COLOR,URINE YELLOW; GLUCOSE, URINE (UA) NEGATIVE (NEGATIVE); KETONES,URINE TRACE (NEGATIVE); LEUKOCYTE ESTERASE ,URINE NEGATIVE (NEGATIVE); NITRITE,URINE NEGATIVE (NEGATIVE); PROTEIN,URINE TRACE (NEGATIVE)
[2020-05-01 18:40] LABS: AMPHETAMINE SCREEN, URINE NEGATIVE (NEGATIVE); BARBITURATE SCREEN URINE NEGATIVE (NEGATIVE); BENZODIAZEPINES SCREEN URINE NEGATIVE (NEGATIVE); CANNABINOID SCREEN, URINE NEGATIVE (NEGATIVE); COCAINE SCREEN URINE NEGATIVE (NEGATIVE); METHADONE STAT NEGATIVE (NEGATIVE); METHAMPHETAMINE SCREEN URINE S NEGATIVE (NEGATIVE); OPIATE SCREEN URINE NEGATIVE (NEGATIVE); OXYCODONE STAT NEGATIVE (NEGATIVE); PROPOXYPHENE STAT NEGATIVE (NEGATIVE); TRICYCLIC ANTIDEPRESSANTS SCRE NEGATIVE (NEGATIVE)
[2020-05-01 18:41] LABS: RBC,URINE 0-2 /HPF; WBC,URINE 0-2 /HPF
[2020-05-01 18:42] LABS: BACTERIA,URINE TRACE /HPF
[2020-05-01] MEDS ORDERED: PROC-1 PO (18:48)
[2020-05-01 18:51] VITALS: BP 181/115
== END 2020-05-01 18:51 | disposition home or self-care (01) ==
LOC: EDUNIT# 17:02 → ER 17:03
DX: R11.2 Nausea with vomiting, unspecified (principal); I10 Essential (primary) hypertension; F41.9 Anxiety disorder, unspecified; F32.9 Major depressive disorder, single episode, unspecified; K21.9 Gastro-esophageal reflux disease without esophagitis; G89.29 Other chronic pain; M54.9 Dorsalgia, unspecified; Z83.3 Family history of diabetes mellitus; Z85.038 Personal history of other malignant neoplasm of large intestine; Z85.41 Personal history of malignant neoplasm of cervix uteri; Z88.5 Allergy status to narcotic agent; Z88.6 Allergy status to analgesic agent; Z88.8 Allergy status to other drugs, medicaments and biological substances; Z79.82 Long term (current) use of aspirin; Z79.891 Long term (current) use of opiate analgesic
CPT/HCPCS: 36415; 80053; 80306; 81000; 83690; 84703; 85025

== ENCOUNTER 2020-05-27 08:00 | Emergency (ER) | payer SELFPAY ==
[~2020-05-27] VITALS: Ht 167 cm; Wt 91.0 kg
[~2020-05-27 08:00] MED LIST changes: +PROC-1 PO
[2020-05-27] MEDS ORDERED: FAMOTIDINE 20MG/2ML IV (PEPCID) IV STA (08:18)
[2020-05-27] MEDS ORDERED: diphenhydrAMINE 50 MG/ML INJ (BENADRYL) IV STA (08:18)
[2020-05-27] MEDS ORDERED: LACTATED RINGERS 1,000 ML IV STA (08:18)
[2020-05-27 08:27] LABS: BASOPHILS % (AUTO) 0 % (0-10); EOSINOPHILS % (AUTO) 0 % (0-10); HEMATOCRIT 42 % (35-52); HEMOGLOBIN 12.9 g/dL (11.5-16.0); LYMPHOCYTES # (AUTO) 2.1 10^3/uL (1.0-4.0); LYMPHOCYTES % (AUTO) 25 % (12-44); MEAN CORPUSCULAR HEMOGLOBIN 28 pg (25-34); MEAN CORPUSCULAR HGB CONC 31 g/dL (32-36); MEAN CORPUSCULAR VOLUME 90 fL (80-99); MEAN PLATELET VOLUME 9.1 fL (9.0-12.2); MONOCYTES # (AUTO) 0.9 10^3/uL (0.0-1.0); MONOCYTES % (AUTO) 11 % (0-12); NEUTROPHILS # (AUTO) 5.5 10^3/uL (1.8-7.8); NEUTROPHILS % (AUTO) 64 % (42-75); PLATELET COUNT 463 10^3/uL (130-400); WHITE BLOOD COUNT 8.6 10^3/uL (4.3-11.0)
[2020-05-27] MEDS ORDERED: HALOPERIDOL 5 MG/ML (HALDOL) VIAL IV ONE (08:30)
--- NOTE | 2020-05-27 08:39 | ED GI ---
General Chief Complaint: Abdominal/GI Problems Stated Complaint: THROWING UP Nursing Triage Note: ARRIVED VIA AMB WITH COMPLAINTS OF VOMITING STARTING YESTERDAY. STATES ZOFRAN NOT HELPING. Sepsis Screen: No Definite Risk Source of Information: Patient Exam Limitations: No Limitations History of Present Illness Date Seen by Provider: May 27, 2020 Time Seen by Provider: 08:08 Initial Comments Here with report of persistent nausea with some vomiting since yesterday afternoon. She has tried ondansetron and that has not helped. This is similar to her typical presentation that she has almost monthly over the last year. She follows with [facility]. Initially may have been associated with marijuana but she reports not using that and previous tox screens were also negative for marijuana. Typically haloperidol and Benadryl works well to break the cycle. Denies blood in her vomit or stool. Denies any other illness findings. Not sure what caused her onset. 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 Timing/Duration: 12-24 Hours Severity/Quality: Moderate, Burning Location: Generalized Abdomen Radiation: No Radiation Activities at Onset: None Modifying Factors: Worsens With Eating Associated Symptoms: No Back Pain, No Chest Pain, No Fever/Chills; Heartburn, Nausea/Vomiting; No Shortness of Air, No Weakness Allergies and Home Medications Allergies Coded Allergies: morphine (Verified Allergy, Unknown, CAUSES "REBOUND HEADACHES", 08/20/13) baclofen (Verified Adverse Reaction, Severe, 06/13/15) PATIENT UNAWARE OF REACTION BUT WAS HOSPITALIZED AFTER TAKING MEDICATION AND WAS TOLD IT WAS A REACTION DUE TO THE MEDICATION SHE TOOK. meloxicam (Verified Adverse Reaction, Severe, 06/13/15) PATIENT UNAWARE OF REACTION BUT WAS HOSPITALIZED AFTER TAKING MEDICATION AND WAS TOLD IT WAS A REACTION DUE TO THE MEDICATION SHE TOOK. NSAIDS (Non-Steroidal Anti-Inflamma (Verified Adverse Reaction, Mild, have IBS and avoid NSAIDS, 12/04/12) Home Medications Amlodipine Besylate 5 Mg Tablet, 5 MG PO DAILY Prescribed by: JOSE RUIZ on 11/19/19 1011 Aspirin/Acetaminophen/Caffeine 1 Each Tablet, 2 EACH PO Q6-8HR PRN for Headache, (Reported) Dicyclomine HCl 20 Mg Tablet, 20 MG PO QID, (Reported) Doxepin HCl 100 Mg Capsule, 100 MG PO HS, (Reported) LAST FILLED 09-23-2019 #30 Famotidine 20 Mg Tablet, 40 MG PO HS, (Reported) TAKES 2 (20MG) TABS Hydrocodone/Acetaminophen 1 Each Tablet, 1 EACH PO Q6H Prescribed by: JOSE RUIZ on 11/19/19 1011 Ondansetron 4 Mg Tab.rapdis, 4 MG PO TID PRN for NAUSEA-1ST LINE, (Reported) Ondansetron 4 Mg Tab.rapdis, 4 MG PO Q4H PRN for NAUSEA/VOMITING Prescribed by: LYN LUND on 01/30/202034 Pantoprazole Sodium 40 Mg Tablet.dr, 40 MG PO DAILY Prescribed by: JOSE RUIZ on 11/19/19 1011 Potassium Chloride 10 Meq Capsule.er, 10 MEQ PO TID, (Reported) Prochlorperazine Maleate 25 Mg Supp.rect, 25 MG RC Q8H PRN for NAUSEA/VOMITING Prescribed by: FAMILIA ELISE on 12/11/19 1600 Prochlorperazine Maleate 10 Mg Tablet, 10 MG PO Q8H PRN for NAUSEA/VOMITING Prescribed by: FAMILIA ELISE on 05/01/20 1848 Sucralfate 1 Gm Tablet, 1 GM PO ACHS Prescribed by: JOSE RUIZ on 11/19/19 1011 Tizanidine HCl 4 Mg Tablet, 4 MG PO BID PRN for MUSCLE SPASMS, (Reported) Patient Home Medication List Home Medication List Reviewed: Yes Review of Systems Review of Systems Constitutional: see HPI; No chills, No fever EENTM: No Nose Congestion, No Throat Pain Respiratory: Denies Cough, Denies Shortness of Air Cardiovascular: No Symptoms Reported Gastrointestinal: See HPI Genitourinary: No Symptoms Reported Musculoskeletal: no symptoms reported Skin: no symptoms reported All Other Systems Reviewed Negative Unless Noted: Yes Past Zxjdynu-Xzozaz-Ujxcss Hx Past Med/Social Hx: Reviewed Nursing Past Med/Soc Hx Patient Social History Alcohol Use: Denies Use Recreational Drug Use: No Drug of Choice: cannabis Smoking Status: Never a Smoker 2nd Hand Smoke Exposure: No Recent Foreign Travel: No Contact w/Someone Who Travel: No Recent Infectious Disease Expo: No Recent Hopitalizations: No Immunizations Up To Date Tetanus Booster (TDap): Unknown PED Vaccines UTD: No Date of Pneumonia Vaccine: Mar 03, 2014 Date of Influenza Vaccine: Mar 03, 2015 Seasonal Allergies Seasonal Allergies: No Past Medical History Surgeries: No Bladder Surgery, Gallbladder, 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, Oophorectomy, Tubal Ligation Respiratory: No Asthma Currently Using CPAP: No Currently Using BIPAP: No Cardiac: No Hypertension, Syncope Neurological: Yes Seizure Disorder 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 Disorders: Yes ([facility] 2005--NO PHYSICIAN DOCUMENTATION OF ANY KIND OF CANCER) 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 Disorders: Denies 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 Sexually Transmitted Disease: Yes (HPV) HIV/AIDS: No Genitourinary: No Bladder Infection Gastrointestinal: No Gastroesophageal Reflux, Irritable Bowel Musculoskeletal: No Chronic Back Pain Endocrine: No HEENT: No Loss of Vision: Denies Cancer: No Cervical, Colon Psychosocial: No Anxiety, Depression Integumentary: No Blood Disorders: No Adverse Reaction/Blood Tranf: No Family Medical History Reviewed Nursing Family Hx Diabetes mellitus 19 FATHER FHx: brain tumor 19 MOTHER HPV infection G8 SISTER No Family History of: AIDS Abdominal aortic aneurysm [place]'s disease Alcoholism Alzheimer's disease Aphasia Arthritis Asthma Cancer of mouth Cardiovascular disease Cataracts Colon cancer Completed stroke Congenital disease Congenital heart disease Coronary thrombosis Cystic fibrosis Deafness or hearing loss Dementia Drug abuse Dysphasia Fibrocystic disease of breast Gastroenteritis Glaucoma Headache disorder Hypercholesterolemia Hypertension Infertility Kidney disease Myocardial infarction Neoplasm Not obtainable due to adoption Osteoporosis Parkinson's disease Prostate cancer Psychosocial problem Respiratory disorder Seizure disorder Severe allergy Thyroid disease Tuberculosis Visual disorder Heart Disease, Hypertension, Other Conditions/Hx Physical Exam Vital Signs Vital Signs - First Documented 05/27/20 08:00 Temp 36.2 Pulse 88 Resp 16 B/P (MAP) 166/106 (126) Pulse Ox 100 O2 Delivery Room Air Capillary Refill : Less Than 3 Seconds Height/Weight/BMI Height: 5'6.00" Weight: 203lbs. 6.4oz. 92.602725cr; 32.00 BMI Method:Stated General Appearance: WD/WN, no apparent distress HEENT: PERRL/EOMI, pharynx normal, other (Globally poor dentition) Neck: full range of motion, supple Respiratory: lungs clear, normal breath sounds Cardiovascular: regular rate, rhythm, no murmur Peripheral Pulses: 2+ Dorsalis Pedis (R), 2+ Left Dors-Pedis (L), 2+ Radial Pulses (R), 2+ Radial Pulses (L) Gastrointestinal: non tender, soft Extremities: non-tender, normal inspection Back: normal inspection, no CVA tenderness, no vertebral tenderness Neurologic/Psychiatric: no motor/sensory deficits, alert, oriented x 3 Skin: normal color, warm/dry Progress/Results/Core Measures Results/Orders Lab Results Laboratory Tests Test 05/27/20 08:14 Range/Units White Blood Count 8.6 4.3-11.0 10^3/uL Red Blood Count 4.65 3.80-5.11 10^6/uL Hemoglobin 12.9 11.5-16.0 g/dL Hematocrit 42 35-52 % Mean Corpuscular Volume 90 80-99 fL Mean Corpuscular Hemoglobin 28 25-34 pg Mean Corpuscular Hemoglobin Concent 31 L 32-36 g/dL Red Cell Distribution Width 15.1 H 10.0-14.5 % Platelet Count 463 H 130-400 10^3/uL Mean Platelet Volume 9.1 9.0-12.2 fL Immature Granulocyte % (Auto) 0 % Neutrophils (%) (Auto) 64 42-75 % Lymphocytes (%) (Auto) 25 12-44 % Monocytes (%) (Auto) 11 0-12 % Eosinophils (%) (Auto) 0 0-10 % Basophils (%) (Auto) 0 0-10 % Neutrophils # (Auto) 5.5 1.8-7.8 10^3/uL Lymphocytes # (Auto) 2.1 1.0-4.0 10^3/uL Monocytes # (Auto) 0.9 0.0-1.0 10^3/uL Eosinophils # (Auto) 0.0 0.0-0.3 10^3/uL Basophils # (Auto) 0.0 0.0-0.1 10^3/uL Immature Granulocyte # (Auto) 0.0 0.0-0.1 10^3/uL Sodium Level 144 135-145 MMOL/L Potassium Level 3.4 L 3.6-5.0 MMOL/L Chloride Level 102 98-107 MMOL/L Carbon Dioxide Level 27 21-32 MMOL/L Anion Gap 15 H 5-14 MMOL/L Blood Urea Nitrogen 7 7-18 MG/DL Creatinine 0.88 0.60-1.30 MG/DL Estimat Glomerular Filtration Rate > 60 BUN/Creatinine Ratio 8 Glucose Level 124 H 70-105 MG/DL Calcium Level 9.8 8.5-10.1 MG/DL Corrected Calcium 8.5-10.1 MG/DL Total Bilirubin 0.3 0.1-1.0 MG/DL Aspartate Amino Transf (AST/SGOT) 22 5-34 U/L Alanine Aminotransferase (ALT/SGPT) 39 0-55 U/L Alkaline Phosphatase 79 40-136 U/L C-Reactive Protein High Sensitivity 0.62 H 0.00-0.50 MG/DL Total Protein 8.0 6.4-8.2 GM/DL Albumin 4.7 H 3.2-4.5 GM/DL My Orders Orders - JORGE LUIS DURAN MD Lactated Ringers (Lr 1000 Ml Iv Solution (05/27/20 08:18) Famotidine Injection (Pepcid Injection) (05/27/20 08:18) Ed Iv/Invasive Line Start (05/27/20 08:18) Diphenhydramine Injection (Benadryl Inje (05/27/20 08:18) Cbc With Automated Diff (05/27/20 08:18) Comprehensive Metabolic Panel (05/27/20 08:18) Hs C Reactive Protein (05/27/20 08:18) Haloperidol Injection (Haldol Injectio (05/27/20 08:30) Medications Given in ED Current Medications Medications Dose Ordered Sig/Judi Route Start Time Stop Time Status Last Admin Dose Admin Haloperidol Lactate 5 mg ONCE ONCE IV 05/27/20 08:30 05/27/20 08:31 DC 05/27/20 08:35 5 MG Vital Signs/I&O 05/27/20 08:00 Temp 36.2 Pulse 88 Resp 16 B/P (MAP) 166/106 (126) Pulse Ox 100 O2 Delivery Room Air Blood Pressure Mean: 126 Progress Progress Note : Progress Note Seen and evaluated. IV, labs, LR 1 L bolus, Haldol 5 mg IV, Benadryl 25 mg IV and famotidine 20 mg IV ordered. Monitor patient. 0910: Overall doing much better. Dissipate discharge home when fluids are complete and patient is comfortable with that plan. 0920: Overall better. Discharged home with return precautions. Patient verbalized understanding of instructions and agreement with plan. Departure Impression Primary Impression: Nausea & vomiting Qualified Codes: R11.2 - Nausea with vomiting, unspecified Disposition: 01 HOME, SELF-CARE Condition: Improved Departure-Patient Inst. Decision time for Depature: 09:11 Referrals: [facility] (PCP) Primary Care Physician SCARLET ALVES (Family) Primary Care Physician Patient Instructions: Nausea and Vomiting, Adult, Severe Abdominal Pain, Adult (DC) Add. Discharge Instructions: All discharge instructions reviewed with patient and/or family. Voiced unders tanding. Clear liquid diet for the next 24 hours and then advance as tolerated. You may take [id number] famotidine (Pepcid) 20 mg once or twice daily for the next week and then daily thereafter as needed for stomach upset. Follow-up with your doctor for recheck and further evaluation and referral to surgeon for possible upper and/or lower endoscopy (scope). Return for worse pain, fever, vomiting, weakness, breathing problems or other concerns as needed. JORGE LUIS DURAN MD May 27, 2020 08:38
[2020-05-27 08:49] LABS: ALBUMIN 4.7 GM/DL (3.2-4.5); CHLORIDE 102 MMOL/L (98-107); POTASSIUM 3.4 MMOL/L (3.6-5.0); SODIUM 144 MMOL/L (135-145)
[2020-05-27 08:50] LABS: CALCIUM 9.8 MG/DL (8.5-10.1)
[2020-05-27 08:52] LABS: GLUCOSE 124 MG/DL (70-105)
[2020-05-27 08:53] LABS: BILIRUBIN,TOTAL 0.3 MG/DL (0.1-1.0); CARBON DIOXIDE 27 MMOL/L (21-32)
[2020-05-27 08:55] LABS: ALKALINE PHOSPHATASE 79 U/L (40-136); CREATININE SERUM 0.88 MG/DL (0.60-1.30); GFR ESTIMATED > 60
[2020-05-27 08:56] LABS: BUN/CREATININE RATIO 8
[2020-05-27 08:58] LABS: ALANINE AMINOTRANSFERASE 39 U/L (0-55)
[2020-05-27 09:26] VITALS: BP 174/98
== END 2020-05-27 09:26 | disposition home or self-care (01) ==
LOC: EDUNIT# 08:00 → ER 08:02
DX: R11.2 Nausea with vomiting, unspecified (principal); K21.9 Gastro-esophageal reflux disease without esophagitis; I10 Essential (primary) hypertension; F41.9 Anxiety disorder, unspecified; F32.9 Major depressive disorder, single episode, unspecified; G89.29 Other chronic pain; M54.9 Dorsalgia, unspecified; Z83.3 Family history of diabetes mellitus; Z85.41 Personal history of malignant neoplasm of cervix uteri; Z85.038 Personal history of other malignant neoplasm of large intestine; Z88.5 Allergy status to narcotic agent; Z88.6 Allergy status to analgesic agent; Z88.8 Allergy status to other drugs, medicaments and biological substances; Z79.82 Long term (current) use of aspirin; Z79.891 Long term (current) use of opiate analgesic
CPT/HCPCS: 36415; 80053; 85025; 86141

== ENCOUNTER 2020-07-13 03:02 | Emergency (ER) | payer SELFPAY ==
[~2020-07-13] VITALS: Ht 167 cm; Wt 91.0 kg
--- NOTE | 2020-07-13 03:20 | NUR ---
pt refused to provide urine specimen
[2020-07-13] MEDS ORDERED: LACTATED RINGERS 1,000 ML IV STA (03:39)
[2020-07-13] MEDS ORDERED: FAMOTIDINE 20MG/2ML IV (PEPCID) IV STA (03:39)
--- NOTE | 2020-07-13 03:44 | ED GI ---
General Chief Complaint: Abdominal/GI Problems Stated Complaint: VOMITING,ABD PAIN,COUGH Nursing Triage Note: vomitting since 2199 Sepsis Screen: No Definite Risk Source of Information: Patient Exam Limitations: No Limitations (ADRIAN FUCHS) History of Present Illness Date Seen by Provider: Jul 13, 2020 Time Seen by Provider: 03:35 Initial Comments Pt here with nausea and vomiting since 2199. She has a history of recurrent vomiting episodes. She states this is similar to her previous episodes and that she had tried to take 3 of her ODT zofran prior to coming s this has been working to control her nausea recently. She denies current marijuana use and states it has been about 4 months. She states that Benadryl and Haldol have worked for her in the past. She denies any other symptoms or associated problems. Timing/Duration: 4-6 Hours Severity/Quality: Moderate Location: Epigastric Radiation: No Radiation Activities at Onset: Sleeping Associated Symptoms: No Back Pain, No Fever/Chills; Nausea/Vomiting (ADRIAN VEGA) Allergies and Home Medications Allergies Coded Allergies: morphine (Verified Allergy, Unknown, CAUSES "REBOUND HEADACHES", 08/20/13) baclofen (Verified Adverse Reaction, Severe, 06/13/15) PATIENT UNAWARE OF REACTION BUT WAS HOSPITALIZED AFTER TAKING MEDICATION AND WAS TOLD IT WAS A REACTION DUE TO THE MEDICATION SHE TOOK. meloxicam (Verified Adverse Reaction, Severe, 06/13/15) PATIENT UNAWARE OF REACTION BUT WAS HOSPITALIZED AFTER TAKING MEDICATION AND WAS TOLD IT WAS A REACTION DUE TO THE MEDICATION SHE TOOK. NSAIDS (Non-Steroidal Anti-Inflamma (Verified Adverse Reaction, Mild, have IBS and avoid NSAIDS, 12/04/12) Home Medications Amlodipine Besylate 5 Mg Tablet, 5 MG PO DAILY Prescribed by: JOSE RUIZ on 11/19/19 1011 Aspirin/Acetaminophen/Caffeine 1 Each Tablet, 2 EACH PO Q6-8HR PRN for Headache, (Reported) Dicyclomine HCl 20 Mg Tablet, 20 MG PO QID, (Reported) Doxepin HCl 100 Mg Capsule, 100 MG PO HS, (Reported) LAST FILLED 09-23-2019 #30 Famotidine 20 Mg Tablet, 40 MG PO HS, (Reported) TAKES 2 (20MG) TABS Hydrocodone/Acetaminophen 1 Each Tablet, 1 EACH PO Q6H Prescribed by: JOSE RUIZ on 11/19/19 1011 Ondansetron 4 Mg Tab.rapdis, 4 MG PO TID PRN for NAUSEA-1ST LINE, (Reported) Ondansetron 4 Mg Tab.rapdis, 4 MG PO Q4H PRN for NAUSEA/VOMITING Prescribed by: LYN LUND on 01/30/202034 Pantoprazole Sodium 40 Mg Tablet.dr, 40 MG PO DAILY Prescribed by: JOSE RUIZ on 11/19/19 101 Potassium Chloride 10 Meq Capsule.er, 10 MEQ PO TID, (Reported) Prochlorperazine Maleate 25 Mg Supp.rect, 25 MG RC Q8H PRN for NAUSEA/VOMITING Prescribed by: FAMILIA ELISE on 12/11/19 1600 Prochlorperazine Maleate 10 Mg Tablet, 10 MG PO Q8H PRN for NAUSEA/VOMITING Prescribed by: FAMILIA ELISE on 05/01/20 1848 Sucralfate 1 Gm Tablet, 1 GM PO ACHS Prescribed by: JOSE RUIZ on 11/19/19 101 Tizanidine HCl 4 Mg Tablet, 4 MG PO BID PRN for MUSCLE SPASMS, (Reported) Patient Home Medication List Home Medication List Reviewed: Yes (JORGE LUIS DURAN MD) Review of Systems Review of Systems Constitutional: No chills, No fever EENTM: No Nose Congestion, No Throat Pain Respiratory: Denies Cough, Denies Shortness of Air Cardiovascular: Denies Chest Pain, Denies Edema Gastrointestinal: Abdominal Pain; Denies Constipated, Denies Diarrhea; Nausea, Vomiting Genitourinary: Denies Burning, Denies Frequency Musculoskeletal: No back pain, No muscle weakness Psychiatric/Neurological: Headache; Denies Numbness, Denies Tingling (ADRIAN FUCHS) All Other Systems Reviewed Negative Unless Noted: Yes (JORGE LUIS DURAN MD) Past Yeozdyl-Zfjzmi-Eunwph Hx Past Med/Social Hx: Reviewed Nursing Past Med/Soc Hx (JORGE LUIS DURAN MD) Patient Social History Alcohol Use: Denies Use Drug of Choice: cannabis Smoking Status: Former Smoker 2nd Hand Smoke Exposure: No Recent Infectious Disease Expo: No Recent Hopitalizations: No (ADRIAN FUCHS) Immunizations Up To Date Tetanus Booster (TDap): Unknown PED Vaccines UTD: No Date of Pneumonia Vaccine: Mar 03, 2014 Date of Influenza Vaccine: Mar 03, 2015 (ADRIAN FUCHS) Seasonal Allergies Seasonal Allergies: No (ADRIAN FUCHS) Past Medical History Surgeries: No Bladder Surgery, Gallbladder, 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, Oophorectomy, Tubal Ligation Respiratory: No Asthma Currently Using CPAP: No Currently Using BIPAP: No Cardiac: No Hypertension, Syncope Neurological: Yes Seizure Disorder : No 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 Disorders: Yes ([facility] 2005--NO PHYSICIAN DOCUMENTATION OF ANY KIND OF CANCER) 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 Disorders: Denies [employer] History: 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 Sexually Transmitted Disease: Yes (HPV) HIV/AIDS: No Genitourinary: No Bladder Infection Gastrointestinal: No Gastroesophageal Reflux, Irritable Bowel Musculoskeletal: No Chronic Back Pain Endocrine: No HEENT: No Loss of Vision: Denies Cancer: No Cervical, Colon Psychosocial: No Anxiety, Depression Integumentary: No Blood Disorders: No Adverse Reaction/Blood Tranf: No (ADRIAN FUCHS) Family Medical History Reviewed Nursing Family Hx (JORGE LUIS DURAN MD) Diabetes mellitus 19 FATHER FHx: brain tumor 19 MOTHER HPV infection G8 SISTER No Family History of: AIDS Abdominal aortic aneurysm [place]'s disease Alcoholism Alzheimer's disease Aphasia Arthritis Asthma Cancer of mouth Cardiovascular disease Cataracts Colon cancer Completed stroke Congenital disease Congenital heart disease Coronary thrombosis Cystic fibrosis Deafness or hearing loss Dementia Drug abuse Dysphasia Fibrocystic disease of breast Gastroenteritis Glaucoma Headache disorder Hypercholesterolemia Hypertension Infertility Kidney disease Myocardial infarction Neoplasm Not obtainable due to adoption Osteoporosis Parkinson's disease Prostate cancer Psychosocial problem Respiratory disorder Seizure disorder Severe allergy Thyroid disease Tuberculosis Visual disorder Heart Disease, Hypertension, Other Conditions/Hx (ADRIAN FUCHS) Physical Exam Vital Signs Vital Signs - First Documented 07/13/20 03:18 Temp 36.7 Pulse 102 Resp 18 B/P (MAP) 124/102 (109) Pulse Ox 99 O2 Delivery Room Air (JORGE LUIS DURAN MD) Vital Signs Capillary Refill : Less Than 3 Seconds (ADRIAN FUCHS) Height/Weight/BMI Height: 5'6.00" Weight: 203lbs. 6.4oz. [id number]; 32.00 BMI Method:Stated General Appearance: WD/WN, mild distress HEENT: PERRL/EOMI Neck: non-tender, full range of motion, supple, normal inspection Respiratory: chest non-tender, lungs clear, normal breath sounds Cardiovascular: normal peripheral pulses, regular rate, rhythm, no edema Gastrointestinal: normal bowel sounds, soft, tenderness (Epigastric) Extremities: normal range of motion, non-tender, normal inspection Back: normal inspection, no CVA tenderness, no vertebral tenderness Neurologic/Psychiatric: no motor/sensory deficits, alert, normal mood/affect, oriented x 3 (ADRIAN FUCHS) General Appearance: WD/WN, mild distress HEENT: PERRL/EOMI, pharynx normal, other (Right eye with subconjunctival hemorrhage from a week ago and has been seen by outside provider.) Neck: full range of motion, supple Respiratory: lungs clear, normal breath sounds Cardiovascular: regular rate, rhythm, no edema Gastrointestinal: normal bowel sounds, soft, tenderness (Epigastric) Extremities: non-tender, normal inspection Back: normal inspection, no CVA tenderness, no vertebral tenderness Neurologic/Psychiatric: alert, oriented x 3 Skin: normal color, warm/dry (JORGE LUIS DURAN MD) Progress/Results/Core Measures Results/Orders Lab Results Laboratory Tests Test 07/13/20 03:35 Range/Units White Blood Count 10.3 4.3-11.0 10^3/uL Red Blood Count 5.10 3.80-5.11 10^6/uL Hemoglobin 13.6 11.5-16.0 g/dL Hematocrit 43 35-52 % Mean Corpuscular Volume 85 80-99 fL Mean Corpuscular Hemoglobin 27 25-34 pg Mean Corpuscular Hemoglobin Concent 31 L 32-36 g/dL Red Cell Distribution Width 15.3 H 10.0-14.5 % Platelet Count 371 130-400 10^3/uL Mean Platelet Volume 10.1 9.0-12.2 fL Immature Granulocyte % (Auto) 0 % Neutrophils (%) (Auto) 77 H 42-75 % Lymphocytes (%) (Auto) 18 12-44 % Monocytes (%) (Auto) 5 0-12 % Eosinophils (%) (Auto) 0 0-10 % Basophils (%) (Auto) 0 0-10 % Neutrophils # (Auto) 7.9 H 1.8-7.8 10^3/uL Lymphocytes # (Auto) 1.8 1.0-4.0 10^3/uL Monocytes # (Auto) 0.5 0.0-1.0 10^3/uL Eosinophils # (Auto) 0.0 0.0-0.3 10^3/uL Basophils # (Auto) 0.0 0.0-0.1 10^3/uL Immature Granulocyte # (Auto) 0.0 0.0-0.1 10^3/uL Sodium Level 143 135-145 MMOL/L Potassium Level 3.6 3.6-5.0 MMOL/L Chloride Level 101 98-107 MMOL/L Carbon Dioxide Level 25 21-32 MMOL/L Anion Gap 17 H 5-14 MMOL/L Blood Urea Nitrogen 11 7-18 MG/DL Creatinine 1.18 0.60-1.30 MG/DL Estimat Glomerular Filtration Rate 50 BUN/Creatinine Ratio 9 Glucose Level 160 H 70-105 MG/DL Calcium Level 10.3 H 8.5-10.1 MG/DL Corrected Calcium 8.5-10.1 MG/DL Total Bilirubin 0.3 0.1-1.0 MG/DL Aspartate Amino Transf (AST/SGOT) 21 5-34 U/L Alanine Aminotransferase (ALT/SGPT) 37 0-55 U/L Alkaline Phosphatase 99 40-136 U/L C-Reactive Protein High Sensitivity 0.40 0.00-0.50 MG/DL Total Protein 8.3 H 6.4-8.2 GM/DL Albumin 4.9 H 3.2-4.5 GM/DL (JORGE LUIS DURAN MD) My Orders Orders - JORGE LUIS DURAN MD Cbc With Automated Diff (07/13/20 03:39) Comprehensive Metabolic Panel (07/13/20 03:39) Hs C Reactive Protein (07/13/20 03:39) Ua Culture If Indicated (07/13/20 03:39) Lactated Ringers (Lr 1000 Ml Iv Solution (07/13/20 03:39) Ed Iv/Invasive Line Start (07/13/20 03:39) Haloperidol Injection (Haldol Injectio (07/13/20 03:45) Diphenhydramine Injection (Benadryl Inje (07/13/20 03:45) Famotidine Injection (Pepcid Injection) (07/13/20 03:39) Ondansetron Injection (Zofran Injectio (07/13/20 05:15) Ketorolac Injection (Toradol Injection) (07/13/20 05:03) (JORGE LUIS DURAN MD) Medications Given in ED Current Medications Medications Dose Ordered Sig/Judi Route Start Time Stop Time Status Last Admin Dose Admin Diphenhydramine HCl 25 mg ONCE ONCE IVP 07/13/20 03:45 07/13/20 03:46 DC 07/13/20 03:47 25 MG Haloperidol Lactate 5 mg ONCE ONCE IV 07/13/20 03:45 07/13/20 03:46 DC 07/13/20 03:48 5 MG Ondansetron HCl 4 mg ONCE ONCE IVP 07/13/20 05:15 07/13/20 05:16 DC 07/13/20 05:21 4 MG (JORGE LUIS DURAN MD) Vital Signs/I&O 07/13/20 03:18 Temp 36.7 Pulse 102 Resp 18 B/P (MAP) 124/102 (109) Pulse Ox 99 O2 Delivery Room Air (JORGE LUIS DURAN MD) Blood Pressure Mean: 109 Progress Progress Note : Progress Note Pt retching and vomiting. Ordered IV line, CBC, CMP, 1L NS, 25mg Benadryl IV, 20mg Pepcid, 5mg Haldol. (ADRIAN FUCHS) Progress Note : Progress Note I have seen and evaluated the patient and agree with above except as indicated. I have directed the plan of care. Patient is here with several hours of nausea and vomiting. She states this is one of her typical episodes and we have seen her multiple times over the last year for the same. Typically Haldol and Benadryl works very well for her vomiting syndrome. She used to smoke marijuana but has subsequently quit. She is worried that maybe her teeth might be the problem. Denies fever chills. Evaluation as above. Plan for basic labs, LR 1 L bolus, Benadryl 25 mg IV, Haldol 5 mg IV and Pepcid 20 mg IV ordered. Monitor patient. 0507: Labs do not show any significant abnormalities. She has been unable to give urine thus far. States that she is having some back pain after retching and has a little nausea still. Toradol 30 mg IV and Zofran 4 mg IV ordered. Patient has NSAID allergy noted on chart but has had Toradol multiple times in she states that she is really only allergic to morphine which gives her rebound headaches. Monitor patient. Anticipate discharge home. No indication for radiographic evaluation currently and patient agrees. 0548: Patient states she is doing better. She would like a work note for today and would like to go home. These were granted. Discharged home with return precautions. Patient verbalized understanding of instructions and agreement with plan. (JORGE LUIS DURAN MD) Departure Impression Primary Impression: Nausea & vomiting Qualified Codes: R11.2 - Nausea with vomiting, unspecified Additional Impression: Diffuse abdominal pain Disposition: HOME, SELF-CARE Condition: Improved Departure-Patient Inst. Decision time for Depature: 05:49 (JORGE LUIS DURAN MD) Referrals: [facility] (PCP) Primary Care Physician SCARLET ALVES (Family) Primary Care Physician Patient Instructions: Severe Abdominal Pain, Adult (DC), Nausea and Vomiting, Adult (DC) Add. Discharge Instructions: All discharge instructions reviewed with patient and/or family. Voiced understanding. Continue home medications as previously prescribed. Follow-up with your doctor for recheck and further evaluation this week or early next week. You should seek appointment for dental care as well. Return for worse pain, fever, vomit ing, weakness, breathing problems or other concerns as needed. Clear or light diet for the next 24 hours and then advance as tolerated. Work/School Note: Work Release Form Date Seen in the Emergency Department: Jul 13, 2020 Return to Work: Jul 14, 2020 Restrictions: No Restrictions Copy Copies To 1: ANNE BYRD [facility] Jul 13, 2020 03:44 JORGE LUIS DURAN MD Jul 13, 2020 05:09
[2020-07-13] MEDS ORDERED: HALOPERIDOL 5 MG/ML (HALDOL) VIAL IV ONE (03:45)
[2020-07-13] MEDS ORDERED: diphenhydrAMINE 50 MG/ML INJ (BENADRYL) IVP ONE (03:45)
[2020-07-13 03:48] LABS: BASOPHILS % (AUTO) 0 % (0-10); EOSINOPHILS % (AUTO) 0 % (0-10); HEMATOCRIT 43 % (35-52); HEMOGLOBIN 13.6 g/dL (11.5-16.0); LYMPHOCYTES # (AUTO) 1.8 10^3/uL (1.0-4.0); LYMPHOCYTES % (AUTO) 18 % (12-44); MEAN CORPUSCULAR HEMOGLOBIN 27 pg (25-34); MEAN CORPUSCULAR HGB CONC 31 g/dL (32-36); MEAN CORPUSCULAR VOLUME 85 fL (80-99); MEAN PLATELET VOLUME 10.1 fL (9.0-12.2); MONOCYTES # (AUTO) 0.5 10^3/uL (0.0-1.0); MONOCYTES % (AUTO) 5 % (0-12); NEUTROPHILS # (AUTO) 7.9 10^3/uL (1.8-7.8); NEUTROPHILS % (AUTO) 77 % (42-75); PLATELET COUNT 371 10^3/uL (130-400); WHITE BLOOD COUNT 10.3 10^3/uL (4.3-11.0)
[2020-07-13 03:49] LABS: ALBUMIN 4.9 GM/DL (3.2-4.5); CHLORIDE 101 MMOL/L (98-107); POTASSIUM 3.6 MMOL/L (3.6-5.0); SODIUM 143 MMOL/L (135-145)
[2020-07-13 03:50] LABS: CALCIUM 10.3 MG/DL (8.5-10.1)
--- NOTE | 2020-07-13 03:50 | NUR ---
pt denies being able to void at this time.
[2020-07-13 03:52] LABS: GLUCOSE 160 MG/DL (70-105); TOTAL PROTEIN 8.3 GM/DL (6.4-8.2)
[2020-07-13 03:53] LABS: BILIRUBIN,TOTAL 0.3 MG/DL (0.1-1.0); CARBON DIOXIDE 25 MMOL/L (21-32)
[2020-07-13 03:55] LABS: ALKALINE PHOSPHATASE 99 U/L (40-136); CREATININE SERUM 1.18 MG/DL (0.60-1.30); GFR ESTIMATED 50
[2020-07-13 03:56] LABS: BUN/CREATININE RATIO 9
[2020-07-13 03:58] LABS: ALANINE AMINOTRANSFERASE 37 U/L (0-55)
--- NOTE | 2020-07-13 04:40 | NUR ---
pt denies being able to void at this time.
[2020-07-13] MEDS ORDERED: KETOROLAC 30 MG/ML VIAL IVP STA (05:03)
[2020-07-13] MEDS ORDERED: ONDANSETRON 4 MG/2 ML (SDV) Z0FRAN IVP ONE (05:15)
--- NOTE | 2020-07-13 05:28 | NUR ---
pt declined to provide urine specimen
[2020-07-13 05:50] VITALS: BP 136/89
== END 2020-07-13 05:55 | disposition home or self-care (01) ==
LOC: EDUNIT# 03:02 → ER 03:04
DX: R11.2 Nausea with vomiting, unspecified (principal); R10.84 Generalized abdominal pain; I10 Essential (primary) hypertension; K21.9 Gastro-esophageal reflux disease without esophagitis; F41.9 Anxiety disorder, unspecified; F32.9 Major depressive disorder, single episode, unspecified; G89.29 Other chronic pain; M54.9 Dorsalgia, unspecified; Z87.891 Personal history of nicotine dependence; Z85.41 Personal history of malignant neoplasm of cervix uteri; Z85.038 Personal history of other malignant neoplasm of large intestine; Z88.5 Allergy status to narcotic agent; Z88.6 Allergy status to analgesic agent; Z88.8 Allergy status to other drugs, medicaments and biological substances; Z83.3 Family history of diabetes mellitus; Z79.82 Long term (current) use of aspirin; Z79.891 Long term (current) use of opiate analgesic
CPT/HCPCS: 36415; 80053; 85025; 86141

== ENCOUNTER 2020-08-24 13:14 | Inpatient (IN) | payer SELFPAY ==
[~2020-08-24] VITALS: Ht 167 cm; Wt 93.8 kg
[~2020-08-24 13:14] MED LIST changes: -AMIT10TA6 PO; +AMT10T PO
[2020-08-24] MEDS ORDERED: ONDANSETRON 4 MG/2 ML (SDV) Z0FRAN IVP ONE (13:45)
[2020-08-24] MEDS ORDERED: LACTATED RINGERS 1,000 ML IV ONE (13:45)
[2020-08-24] MEDS ORDERED: fentaNYL INJ 100 MCG/2 ML AMP IVP ONE (13:45)
[2020-08-24] MEDS ORDERED: FAMOTIDINE 20MG/2ML IV (PEPCID) IVP ONE (13:45)
[2020-08-24 13:47] LABS: BASOPHILS % (AUTO) 0 % (0-10); EOSINOPHILS % (AUTO) 0 % (0-10); HEMATOCRIT 47 % (35-52); HEMOGLOBIN 14.6 g/dL (11.5-16.0); LYMPHOCYTES # (AUTO) 2.7 10^3/uL (1.0-4.0); LYMPHOCYTES % (AUTO) 19 % (12-44); MEAN CORPUSCULAR HEMOGLOBIN 27 pg (25-34); MEAN CORPUSCULAR HGB CONC 31 g/dL (32-36); MEAN CORPUSCULAR VOLUME 86 fL (80-99); MEAN PLATELET VOLUME 9.3 fL (9.0-12.2); MONOCYTES # (AUTO) 0.8 10^3/uL (0.0-1.0); MONOCYTES % (AUTO) 6 % (0-12); NEUTROPHILS # (AUTO) 10.6 10^3/uL (1.8-7.8); NEUTROPHILS % (AUTO) 74 % (42-75); PLATELET COUNT 508 10^3/uL (130-400); WHITE BLOOD COUNT 14.2 10^3/uL (4.3-11.0)
--- NOTE | 2020-08-24 13:57 | ED Abdominal Pain ---
General Chief Complaint: Abdominal/GI Problems Stated Complaint: N/V Nursing Triage Note: PT STATES NVD SINCE ABOUT 0230 THIS A.M. Sepsis Screen: No Definite Risk Source of Information: Patient, Old Records Exam Limitations: No Limitations History of Present Illness Date Seen by Provider: Aug 24, 2020 Time Seen by Provider: 13:34 Initial Comments This 44-year-old woman presents to the emergency room with nausea, vomiting, and diarrhea since 0230 this morning. She also has generalized abdominal pain. She has had numerous visits for nausea and vomiting in the past and has on occasion been admitted for symptom control and electrolyte disturbances. Some of these episodes have been linked to marijuana use. Patient denies use of marijuana in months. Allergies and Home Medications Allergies Coded Allergies: morphine (Verified Allergy, Unknown, CAUSES "REBOUND HEADACHES", 08/20/13) baclofen (Verified Adverse Reaction, Severe, 06/13/15) PATIENT UNAWARE OF REACTION BUT WAS HOSPITALIZED AFTER TAKING MEDICATION AND WAS TOLD IT WAS A REACTION DUE TO THE MEDICATION SHE TOOK. meloxicam (Verified Adverse Reaction, Severe, 06/13/15) PATIENT UNAWARE OF REACTION BUT WAS HOSPITALIZED AFTER TAKING MEDICATION AND WAS TOLD IT WAS A REACTION DUE TO THE MEDICATION SHE TOOK. NSAIDS (Non-Steroidal Anti-Inflamma (Verified Adverse Reaction, Mild, have IBS and avoid NSAIDS, 12/04/12) Home Medications Amlodipine Besylate 5 Mg Tablet, 5 MG PO DAILY Prescribed by: JOSE RUIZ on 11/19/19 1011 Aspirin/Acetaminophen/Caffeine 1 Each Tablet, 2 EACH PO Q6-8HR PRN for Headache, (Reported) Dicyclomine HCl 20 Mg Tablet, 20 MG PO QID, (Reported) Doxepin HCl 100 Mg Capsule, 100 MG PO HS, (Reported) LAST FILLED 09-23-2019 #30 Famotidine 20 Mg Tablet, 40 MG PO HS, (Reported) TAKES 2 (20MG) TABS Hydrocodone/Acetaminophen 1 Each Tablet, 1 EACH PO Q6H Prescribed by: JOSE RUIZ on 11/19/19 1011 Ondansetron 4 Mg Tab.rapdis, 4 MG PO TID PRN for NAUSEA-1ST LINE, (Reported) Ondansetron 4 Mg Tab.rapdis, 4 MG PO Q4H PRN for NAUSEA/VOMITING Prescribed by: LYN LUND on 01/30/202034 Pantoprazole Sodium 40 Mg Tablet.dr, 40 MG PO DAILY Prescribed by: JOSE RUIZ on 11/19/19 1011 Potassium Chloride 10 Meq Capsule.er, 10 MEQ PO TID, (Reported) Prochlorperazine Maleate 25 Mg Supp.rect, 25 MG RC Q8H PRN for NAUSEA/VOMITING Prescribed by: FAMILIA ELISE on 12/11/19 1600 Prochlorperazine Maleate 10 Mg Tablet, 10 MG PO Q8H PRN for NAUSEA/VOMITING Prescribed by: FAMILIA ELISE on 05/01/20 1848 Sucralfate 1 Gm Tablet, 1 GM PO ACHS Prescribed by: JOSE RUIZ on 11/19/19 1011 Tizanidine HCl 4 Mg Tablet, 4 MG PO BID PRN for MUSCLE SPASMS, (Reported) Patient Home Medication List Home Medication List Reviewed: Yes Review of Systems Review of Systems Constitutional: no symptoms reported EENTM: No Symptoms Reported Respiratory: No Symptoms Reported Cardiovascular: No Symptoms Reported Gastrointestinal: See HPI Genitourinary: No Symptoms Reported Musculoskeletal: no symptoms reported Skin: no symptoms reported Psychiatric/Neurological: No Symptoms Reported Endocrine: No Symptoms Reported Hematologic/Lymphatic: No Symptoms Reported Past Vmezeva-Gacxlt-Pucjfn Hx Past Med/Social Hx: Reviewed Nursing Past Med/Soc Hx Patient Social History Drug of Choice: cannabis 2nd Hand Smoke Exposure: No Recent Infectious Disease Expo: No Recent Hopitalizations: No Immunizations Up To Date Tetanus Booster (TDap): Unknown PED Vaccines UTD: No Date of Pneumonia Vaccine: Mar 03, 2014 Date of Influenza Vaccine: Mar 03, 2015 Seasonal Allergies Seasonal Allergies: No Past Medical History Surgeries: Yes Bladder Surgery, Gallbladder, 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, Oophorectomy, Tubal Ligation Respiratory: No Asthma Currently Using CPAP: No Currently Using BIPAP: No Cardiac: Yes Hypertension, Syncope Neurological: Yes (Tremor) Seizure Disorder 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 Disorders: Yes (HYST 2005--NO PHYSICIAN DOCUMENTATION OF ANY KIND OF CANCER) 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 Disorders: Denies 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 Sexually Transmitted Disease: Yes (HPV) HIV/AIDS: No Genitourinary: Yes Bladder Infection Gastrointestinal: Yes Gastroesophageal Reflux, Irritable Bowel Musculoskeletal: Yes Chronic Back Pain Endocrine: No HEENT: No Loss of Vision: Denies Cancer: Yes Cervical, Colon Psychosocial: Yes Anxiety, Depression Integumentary: No Blood Disorders: No Adverse Reaction/Blood Tranf: No Family Medical History Reviewed Nursing Family Hx Diabetes mellitus 19 FATHER FHx: brain tumor 19 MOTHER HPV infection G8 SISTER No Family History of: AIDS Abdominal aortic aneurysm [place]'s disease Alcoholism Alzheimer's disease Aphasia Arthritis Asthma Cancer of mouth Cardiovascular disease Cataracts Colon cancer Completed stroke Congenital disease Congenital heart disease Coronary thrombosis Cystic fibrosis Deafness or hearing loss Dementia Drug abuse Dysphasia Fibrocystic disease of breast Gastroenteritis Glaucoma Headache disorder Hypercholesterolemia Hypertension Infertility Kidney disease Myocardial infarction Neoplasm Not obtainable due to adoption Osteoporosis Parkinson's disease Prostate cancer Psychosocial problem Respiratory disorder Seizure disorder Severe allergy Thyroid disease Tuberculosis Visual disorder Heart Disease, Hypertension, Other Conditions/Hx Physical Exam Vital Signs Vital Signs - First Documented 08/24/20 13:30 Temp 35.8 Pulse 92 Resp 22 B/P (MAP) 181/108 (132) Pulse Ox 98 O2 Delivery Room Air Capillary Refill : Less Than 3 Seconds Height/Weight/BMI Height: 5'6.00" Weight: 203lbs. 6.4oz. 92.175757st; 33.00 BMI Method:Stated General Appearance: WD/WN, moderate distress (Persistent heaving) HEENT: PERRL/EOMI, other (Mucous membranes somewhat dry. 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, no motor/sensory deficits, alert, normal mood/affect, oriented x 3, other (Tremor of left upper extremity) Skin: normal color, warm/dry Focused Exam Lactate Level 08/24/20 13:51: Lactic Acid Level 1.98 Lactic Acid Level Laboratory Tests Test 08/24/20 13:51 Lactic Acid Level 1.98 MMOL/L (0.50-2.00) Progress/Results/Core Measures Results/Orders Lab Results Laboratory Tests Test 08/24/20 13:35 08/24/20 13:51 Range/Units White Blood Count 14.2 H 4.3-11.0 10^3/uL Red Blood Count 5.47 H 3.80-5.11 10^6/uL Hemoglobin 14.6 11.5-16.0 g/dL Hematocrit 47 35-52 % Mean Corpuscular Volume 86 80-99 fL Mean Corpuscular Hemoglobin 27 25-34 pg Mean Corpuscular Hemoglobin Concent 31 L 32-36 g/dL Red Cell Distribution Width 15.9 H 10.0-14.5 % Platelet Count 508 H 130-400 10^3/uL Mean Platelet Volume 9.3 9.0-12.2 fL Immature Granulocyte % (Auto) 0 % Neutrophils (%) (Auto) 74 42-75 % Lymphocytes (%) (Auto) 19 12-44 % Monocytes (%) (Auto) 6 0-12 % Eosinophils (%) (Auto) 0 0-10 % Basophils (%) (Auto) 0 0-10 % Neutrophils # (Auto) 10.6 H 1.8-7.8 10^3/uL Lymphocytes # (Auto) 2.7 1.0-4.0 10^3/uL Monocytes # (Auto) 0.8 0.0-1.0 10^3/uL Eosinophils # (Auto) 0.0 0.0-0.3 10^3/uL Basophils # (Auto) 0.0 0.0-0.1 10^3/uL Immature Granulocyte # (Auto) 0.0 0.0-0.1 10^3/uL Neutrophils % (Manual) 71 % Lymphocytes % (Manual) 22 % Monocytes % (Manual) 7 % Blood Morphology Comment NORMAL Sodium Level 142 135-145 MMOL/L Potassium Level 3.8 3.6-5.0 MMOL/L Chloride Level 102 98-107 MMOL/L Carbon Dioxide Level 24 21-32 MMOL/L Anion Gap 16 H 5-14 MMOL/L Blood Urea Nitrogen 14 7-18 MG/DL Creatinine 1.09 0.60-1.30 MG/DL Estimat Glomerular Filtration Rate 55 BUN/Creatinine Ratio 13 Glucose Level 131 H 70-105 MG/DL Calcium Level 10.6 H 8.5-10.1 MG/DL Corrected Calcium 8.5-10.1 MG/DL Total Bilirubin 0.4 0.1-1.0 MG/DL Aspartate Amino Transf (AST/SGOT) 18 5-34 U/L Alanine Aminotransferase (ALT/SGPT) 25 0-55 U/L Alkaline Phosphatase 89 40-136 U/L C-Reactive Protein High Sensitivity 0.19 0.00-0.50 MG/DL Total Protein 8.9 H 6.4-8.2 GM/DL Albumin 5.1 H 3.2-4.5 GM/DL Lipase 329 H 8-78 U/L Serum Alcohol < 10 <10 MG/DL Lactic Acid Level 1.98 0.50-2.00 MMOL/L My Orders Orders - MARY VITAL MD Ondansetron Injection (Zofran Injectio (08/24/20 13:45) Famotidine Injection (Pepcid Injection) (08/24/20 13:45) Ed Iv/Invasive Line Start (08/24/20 13:40) Lactated Ringers (Lr 1000 Ml Iv Solution (08/24/20 13:45) Cbc With Automated Diff (08/24/20 13:40) Comprehensive Metabolic Panel (08/24/20 13:40) Hs C Reactive Protein (08/24/20 13:40) Lactic Acid Analyzer (08/24/20 13:40) Ua Culture If Indicated (08/24/20 13:40) Drug Screen Stat (Urine) (08/24/20 13:42) Fentanyl Inj (Sublimaze Injection) (08/24/20 13:45) Manual Differential (08/24/20 13:35) Lipase (08/24/20 14:14) Alcohol (08/24/20 14:33) Ct Abdomen/Pelvis W (08/24/20 14:34) Promethazine Injection (Phenergan Injec (08/24/20 14:45) Iohexol Injection (Omnipaque 350 Mg/Ml 1 (08/24/20 14:45) Received Contrast (Hold Metformin- Contr (08/24/20 14:45) Ns (Ivpb) (Sodium Chloride 0.9% Ivpb Bag (08/24/20 14:45) Haloperidol Injection (Haldol Injectio (08/24/20 15:30) Diphenhydramine Injection (Benadryl Inje (08/24/20 15:30) Scopolamine Patch (Transderm-Scop Patch) (08/24/20 16:15) Medications Given in ED Current Medications Medications Dose Ordered Sig/Judi Route Start Time Stop Time Status Last Admin Dose Admin Diphenhydramine HCl 25 mg ONCE ONCE IVP 08/24/20 15:30 08/24/20 15:31 DC 08/24/20 15:55 25 MG Famotidine 20 mg ONCE ONCE IVP 08/24/20 13:45 08/24/20 13:46 DC 08/24/20 13:51 20 MG Fentanyl Citrate 50 mcg ONCE ONCE IVP 08/24/20 13:45 08/24/20 13:46 DC 08/24/20 13:57 50 MCG Haloperidol Lactate 2.5 mg ONCE ONCE IV 08/24/20 15:30 08/24/20 15:31 DC 08/24/20 15:56 2.5 MG Iohexol 100 ml ONCE ONCE IV 08/24/20 14:45 08/24/20 14:49 DC 08/24/20 15:25 100 ML Lactated Ringer's 1,000 ml @ 0 mls/hr Q0M ONCE IV 08/24/20 13:45 08/24/20 13:46 DC 08/24/20 13:53 1,000 MLS/HR Ondansetron HCl 8 mg ONCE ONCE IVP 08/24/20 13:45 08/24/20 13:46 DC 08/24/20 13:51 8 MG Promethazine HCl 25 mg ONCE ONCE IVP 08/24/20 14:45 08/24/20 14:46 DC 08/24/20 14:45 25 MG Sodium Chloride 100 ml ONCE ONCE IV 08/24/20 14:45 08/24/20 14:49 DC 08/24/20 15:25 80 ML Vital Signs/I&O 08/24/20 08/24/20 13:30 13:57 Temp 35.8 35.8 Pulse 92 Resp 22 B/P (MAP) 181/108 (132) Pulse Ox 98 O2 Delivery Room Air Blood Pressure Mean: 132 Progress Progress Note #1: Time: 14:00 Progress Note Patient was seen and examined. Fentanyl, Zofran, and Pepcid were ordered for symptom management. Labs are pending. Progress Note #2: Time: 16:22 Progress Note 3 nausea and vomiting after treatment with Pepcid, Zofran, and fentanyl. Phenergan was then administered. She continued to have retching. We are now trying Benadryl and Haldol. She was still reporting nausea as these medications were infusing. CT demonstrated possible thickening of the colon wall. There were otherwise no significant acute abnormalities. Lipase was mildly elevated suggesting some degree of pancreatitis. Patient will not likely do well if discharged at this time. Admission for observation, symptom control, and IV hydration as appropriate. Case was discussed with Dr. Ruiz and Dr. Villa. WBC is elevated likely secondary to persistent vomiting. CRP is normal. We have determine antibiotic are not indicated at this time after discussion with Dr. Villa. Progress Note #3: Progress Note Scopolamine patch was applied prior to admission. Diagnostic Imaging Diagonstic Imaging: CT Plain Films/CT/US/NM/MRI: abdomen, pelvis Comments CT abdomen and pelvis viewed by me and report reviewed. See report below: NAME: DORIAN BROWN [facility] REC#: [id number] PT STATUS: REG ER : 1975 PHYSICIAN: MARY VITAL MD ADMIT DATE: 08/24/20/ER Signed Date of Exam:08/24/20 CT ABDOMEN/PELVIS W EXAMINATION: CT Abdomen and Pelvis with intravenous contrast. TECHNIQUE: Multiple contiguous axial images were obtained through the abdomen and pelvis after the uneventful administration of intravenous contrast. All CT scans use one or more of the following dose optimizing techniques: automated exposure control, MA and/or KvP adjustment based on a patient size and exam type, or iterative reconstruction. HISTORY: Abdominal pain, pancreatitis. COMPARISON: CT abdomen and pelvis from 11/15/2019. FINDINGS: Lung bases: The lung bases are clear. Solid organs: The liver is normal without focal lesion. The gallbladder is surgically absent. There is no biliary ductal dilation. Pancreas is normal without significant peripancreatic inflammation or stranding. No pancreatic ductal dilatation. Spleen is normal. Adrenal glands are normal. The kidneys are normal without hydronephrosis. Bowel: The stomach and small bowel are normal without obstruction. The transverse and descending colon are decompressed with suggestion of wall thickening, incompletely evaluated. The appendix is normal. Peritoneum: There is no intraperitoneal free fluid or free air. No suspicious lymphadenopathy. Vasculature: Normal without aneurysm. Musculoskeletal: Degenerative changes of the spine without suspicious osseous lesion or compression fracture. Pelvis: The uterus is surgically absent. No adnexal mass. The urinary bladder is normal. IMPRESSION: 1. Possible wall thickening of the transverse and descending colon which may be secondary to decompressed state. Differential consideration would include infectious or inflammatory colitis in the appropriate clinical setting. 2. No other acute abnormality in the abdomen or pelvis. Dictated by: Dictated on workstation # [id number] Dict: 08/24/20 1528 Trans: 08/24/20 1557 [id number] Interpreted by: JULIEN GENAO DO Electronically signed by: JULIEN GENAO DO 08/24/20 1557 Departure Communication (Admissions) Time/Spoke to Admitting Phy: 16:14 Dr. Ruiz Time/Spoke to Consulting Phy: 16:14 Dr. Villa Impression Primary Impression: Generalized abdominal pain Additional Impressions: Intractable nausea and vomiting Pancreatitis Qualified Codes: K85.90 - Acute pancreatitis without necrosis or infection, unspecified Diarrhea Qualified Codes: R19.7 - Diarrhea, unspecified Disposition: ADMITTED INPATIENT Condition: Improved Admissions Decision to Admit Reason: Admit from ER (General) Decision to Admit/Date: Aug 24, 2020 Time/Decision to Admit Time: 16:05 Departure-Patient Inst. Referrals: [facility] (PCP) Primary Care Physician AUDREY ELIZABETH (Family) Primary Care Physician Copy Copies To 1: ANNE BYRD JOSHUA T MD Aug 24, 2020 13:56
[2020-08-24 14:02] LABS: ALBUMIN 5.1 GM/DL (3.2-4.5); CHLORIDE 102 MMOL/L (98-107); POTASSIUM 3.8 MMOL/L (3.6-5.0); SODIUM 142 MMOL/L (135-145)
[2020-08-24 14:04] LABS: CALCIUM 10.6 MG/DL (8.5-10.1)
[2020-08-24 14:05] LABS: GLUCOSE 131 MG/DL (70-105); TOTAL PROTEIN 8.9 GM/DL (6.4-8.2)
[2020-08-24 14:06] LABS: CARBON DIOXIDE 24 MMOL/L (21-32)
[2020-08-24 14:07] LABS: BILIRUBIN,TOTAL 0.4 MG/DL (0.1-1.0)
[2020-08-24 14:08] LABS: ALKALINE PHOSPHATASE 89 U/L (40-136)
[2020-08-24 14:09] LABS: CREATININE SERUM 1.09 MG/DL (0.60-1.30); GFR ESTIMATED 55
[2020-08-24 14:10] LABS: BUN/CREATININE RATIO 13
[2020-08-24 14:11] LABS: LYMPHOCYTES % (MANUAL) 22 %; MONOCYTES % (MANUAL) 7 %; NEUTROPHILS % (MANUAL) 71 %
[2020-08-24 14:12] LABS: ALANINE AMINOTRANSFERASE 25 U/L (0-55); RBC MORPH NORMAL
[2020-08-24] MEDS ORDERED: NS 100 ML (IVPB) BAG IV ONE (14:45)
[2020-08-24] MEDS ORDERED: IOHEXOL 350 MG/ML 100 ML (OMNIPAQUE 350) VIAL IV ONE (14:45)
[2020-08-24] MEDS ORDERED: PROMETHAZINE INJ 25 MG/ML (PHENERGAN) AMP IVP ONE (14:45)
[2020-08-24] MEDS ORDERED: HOLD METFORMIN - RECEIVED CONTRAST 20 ML VIAL IV SCH (14:45)
[2020-08-24] MEDS ORDERED: HALOPERIDOL 5 MG/ML (HALDOL) VIAL IV ONE (15:30)
[2020-08-24] MEDS ORDERED: diphenhydrAMINE 50 MG/ML INJ (BENADRYL) IVP ONE (15:30)
--- NOTE | 2020-08-24 15:34 | Diagnostic Imaging Report ---
EXAMINATION: CT Abdomen and Pelvis with intravenous contrast. TECHNIQUE: Multiple contiguous axial images were obtained through the abdomen and pelvis after the uneventful administration of intravenous contrast. All CT scans use one or more of the following dose optimizing techniques: automated exposure control, MA and/or KvP adjustment based on a patient size and exam type, or iterative reconstruction. HISTORY: Abdominal pain, pancreatitis. COMPARISON: CT abdomen and pelvis from 11/15/2019. FINDINGS: Lung bases: The lung bases are clear. Solid organs: The liver is normal without focal lesion. The gallbladder is surgically absent. There is no biliary ductal dilation. Pancreas is normal without significant peripancreatic inflammation or stranding. No pancreatic ductal dilatation. Spleen is normal. Adrenal glands are normal. The kidneys are normal without hydronephrosis. Bowel: The stomach and small bowel are normal without obstruction. The transverse and descending colon are decompressed with suggestion of wall thickening, incompletely evaluated. The appendix is normal. Peritoneum: There is no intraperitoneal free fluid or free air. No suspicious lymphadenopathy. Vasculature: Normal without aneurysm. Musculoskeletal: Degenerative changes of the spine without suspicious osseous lesion or compression fracture. Pelvis: The uterus is surgically absent. No adnexal mass. The urinary bladder is normal. IMPRESSION: 1. Possible wall thickening of the transverse and descending colon which may be secondary to decompressed state. Differential consideration would include infectious or inflammatory colitis in the appropriate clinical setting. 2. No other acute abnormality in the abdomen or pelvis. Dictated by: Dictated on workstation # [id number]
[2020-08-24] MEDS ORDERED: SCOPOLAMINE 1.5 MG (TRANSDERM-SCOP) PATCH TD ONE (16:15)
[2020-08-24 17:37] VITALS: BP 190/104
[2020-08-24] MEDS ORDERED: CATHETER FLUSH 10 ML SYR IV PRN (18:00)
[2020-08-24] MEDS: PANTOPRAZOLE 40 MG (PROTONIX) VIAL IV SCH (18:14)
[2020-08-24] MEDS: ONDANSETRON 4 MG/2 ML (SDV) Z0FRAN IV PRN (18:14)
[2020-08-24] MEDS: fentaNYL INJ 100 MCG/2 ML AMP IV PRN ×2 (18:14→21:06)
[2020-08-24] MEDS: LACTATED RINGERS 1,000 ML IV SCH (18:15)
--- NOTE | 2020-08-24 19:03 | Consultation - Surgery ---
History of Present Illness History of Present Illness Patient Consulted On(jayda/time) 08/24/20 18:56 Time Seen by Provider: 16:11 History of Present Illness Surgery asked to consult regarding intractable Nausea, Vomiting and some diarrhea. Pt also complaining of abdominal pain. HPI per ED: This 44-year-old woman presents to the emergency room with nausea, vomiting, and diarrhea since 0230 this morning. She also has generalized abdominal pain. She has had numerous visits for nausea and vomiting in the past and has on occasion been admitted for symptom control and electrolyte disturbances. Some of these episodes have been linked to marijuana use. Patient denies use of marijuana in months. Pt states she has had something similar and actually had work-up by Dr. Gramajo; "with upper and lower scope". Pt denies every having pancreatitis before, has had colitis. Nothing really seemed to make her symptoms better, but also n othing making them worse. Allergies and Home Medications Allergies Coded Allergies: morphine (Verified Allergy, Unknown, CAUSES "REBOUND HEADACHES", 08/20/13) baclofen (Verified Adverse Reaction, Severe, 06/13/15) PATIENT UNAWARE OF REACTION BUT WAS HOSPITALIZED AFTER TAKING MEDICATION AND WAS TOLD IT WAS A REACTION DUE TO THE MEDICATION SHE TOOK. meloxicam (Verified Adverse Reaction, Severe, 06/13/15) PATIENT UNAWARE OF REACTION BUT WAS HOSPITALIZED AFTER TAKING MEDICATION AND WAS TOLD IT WAS A REACTION DUE TO THE MEDICATION SHE TOOK. NSAIDS (Non-Steroidal Anti-Inflamma (Verified Adverse Reaction, Mild, have IBS and avoid NSAIDS, 12/04/12) Home Medications Amlodipine Besylate 5 Mg Tablet, 5 MG PO DAILY Prescribed by: JOSE RUIZ on 11/19/19 1011 Aspirin/Acetaminophen/Caffeine 1 Each Tablet, 2 EACH PO Q6-8HR PRN for Headache, (Reported) Dicyclomine HCl 20 Mg Tablet, 20 MG PO QID, (Reported) Doxepin HCl 100 Mg Capsule, 100 MG PO HS, (Reported) LAST FILLED 09-23-2019 #30 Famotidine 20 Mg Tablet, 40 MG PO HS, (Reported) TAKES 2 (20MG) TABS Hydrocodone/Acetaminophen 1 Each Tablet, 1 EACH PO Q6H Prescribed by: JOSE RUIZ on 11/19/19 1011 Ondansetron 4 Mg Tab.rapdis, 4 MG PO TID PRN for NAUSEA-1ST LINE, (Reported) Ondansetron 4 Mg Tab.rapdis, 4 MG PO Q4H PRN for NAUSEA/VOMITING Prescribed by: LYN LUND on 01/30/202034 Pantoprazole Sodium 40 Mg Tablet.dr, 40 MG PO DAILY Prescribed by: JOSE RUIZ on 11/19/19 1011 Potassium Chloride 10 Meq Capsule.er, 10 MEQ PO TID, (Reported) Prochlorperazine Maleate 25 Mg Supp.rect, 25 MG RC Q8H PRN for NAUSEA/VOMITING Prescribed by: FAMILIA ELISE on 12/11/19 1600 Prochlorperazine Maleate 10 Mg Tablet, 10 MG PO Q8H PRN for NAUSEA/VOMITING Prescribed by: FAMILIA ELISE on 05/01/20 1848 Sucralfate 1 Gm Tablet, 1 GM PO ACHS Prescribed by: JOSE RUIZ on 11/19/19 1011 Tizanidine HCl 4 Mg Tablet, 4 MG PO BID PRN for MUSCLE SPASMS, (Reported) Patient Home Medication List Home Medication List Reviewed: Yes Past Hzogjsd-Sednbh-Skxbvm Hx Patient Social History Drug of Choice: cannabis Smoking Status: Never a Smoker 2nd Hand Smoke Exposure: No Recent Hopitalizations: No Alcohol Use?: No Substance type: Marijuana Immunizations Up To Date Tetanus Booster (TDap): Unknown PED Vaccines UTD: No Date of Pneumonia Vaccine: Mar 03, 2014 Date of Influenza Vaccine: Mar 03, 2015 Seasonal Allergies Seasonal Allergies: No Surgeries History of Surgeries: Yes Surgeries: Bladder Surgery, Gallbladder, 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, Oophorectomy, Tubal Ligation Respiratory History of Respiratory Disorde: Yes Respiratory Disorders: Asthma Cardiovascular History of Cardiac Disorders: Yes Cardiac Disorders: Hypertension, Syncope Neurological History of Neurological Disord: Yes (Tremor) Neurological Disorders: Seizure Disorder 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 System Hx 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 Disorders: Yes (HYST 2005--NO PHYSICIAN DOCUMENTATION OF ANY KIND OF CANCER) Sexually Transmitted Disease: Yes (HPV) HIV/AIDS: No 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 Disorders: 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 Genitourinary History of Genitourinary Disor: Yes Genitourinary Disorders: Bladder Infection Gastrointestinal History of Gastrointestinal Di: Yes Gastrointestinal Disorders: Gastroesophageal Reflux, Irritable Bowel Musculoskeletal History of Musculoskeletal Dis: Yes Musculoskeletal Disorders: Chronic Back Pain Endocrine History of Endocrine Disorders: No HEENT History of HEENT Disorders: No Loss of Vision: Denies Cancer History of Cancer: Yes Cancer: Cervical, Colon Psychosocial History of Psychiatric Problem: Yes Behavioral Health Disorders: Anxiety, Depression Integumentary History of Skin or Integumenta: No Blood Transfusions History of Blood Disorders: No Adverse Reaction to a Blood Tr: No Family Medical History Significant Family History: Heart Disease, Hypertension, Other Conditions/Hx Family Medial History: Diabetes mellitus 19 FATHER FHx: brain tumor 19 MOTHER HPV infection G8 SISTER Review of Systems-General Constitutional: No chills, No diaphoresis; malaise EENTM: No blurred vision, No double vision, No mouth pain, No mouth swelling, No epistaxis Respiratory: No cough, No dyspnea on exertion, No hemoptysis, No short of br eath Cardiovascular: No chest pain, No edema, No palpitations Gastrointestinal: abdominal pain, diarrhea, nausea, vomiting Genitourinary: No dysuria, No frequency, No hematuria Musculoskeletal: back pain, joint pain, joint swelling, muscle stiffness Skin: No change in color, No change in hair/nails Psychiatric/Neurological: Anxiety, Depressed, Seizure, Tremors Other pt denies any hx of abnormal bleeding or bruising Physical Exam-General Problems Physical Exam Vital Signs Vital Signs - First Documented 08/24/20 13:30 Temp 35.8 Pulse 92 Resp 22 B/P (MAP) 181/108 (132) Pulse Ox 98 O2 Delivery Room Air Capillary Refill : Less Than 3 Seconds General Appearance: mild distress, obese Eyes: Bilateral Eye PERRL, Bilateral Eye EOMI HEENT: pharynx normal; No scleral icterus (R), No scleral icterus (L); other (poor dentition) Neck: non-tender, supple, normal inspection Respiratory: lungs clear, normal breath sounds, no respiratory distress, no accessory muscle use Cardiovascular: regular rate, rhythm, no murmur Gastrointestinal: soft, no organomegaly, no pulsatile mass, abnormal bowel sounds (slightly decreased), tenderness (generalized), hernia (small umbilical) Rectal: deferred Back: no CVA tenderness, no vertebral tenderness Extremities: no pedal edema, no calf tenderness, normal capillary refill Neurologic/Psychiatric: edi consultant II-XII nml as tested, no motor/sensory deficits, alert, normal mood/affect, oriented x 3, other (tremor of left upper extremity) Skin: normal color, warm/dry Lymphatic: no adenopathy (neck, axilla or groin) Data Review Labs Laboratory Tests 08/24/20 13:35: White Blood Count 14.2H, Red Blood Count 5.47H, Hemoglobin 14.6, Hematocrit 47, Mean Corpuscular Volume 86, Mean Corpuscular Hemoglobin 27, Mean Corpuscular Hemoglobin Concent 31L, Red Cell Distribution Width 15.9H, Platelet Count 508H, Mean Platelet Volume 9.3, Immature Granulocyte % (Auto) 0, Neutrophils (%) (Auto) 74, Lymphocytes (%) (Auto) 19, Monocytes (%) (Auto) 6, Eosinophils (%) (Auto) 0, Basophils (%) (Auto) 0, Neutrophils # (Auto) 10.6H, Lymphocytes # (Auto) 2.7, Monocytes # (Auto) 0.8, Eosinophils # (Auto) 0.0, Basophils # (Auto) 0.0, Immature Granulocyte # (Auto) 0.0, Neutrophils % (Manual) 71, Lymphocytes % (Manual) 22, Monocytes % (Manual) 7, Blood Morphology Comment NORMAL, Sodium Level 142, Potassium Level 3.8, Chloride Level 102, Carbon Dioxide Level 24, Anion Gap 16H, Blood Urea Nitrogen 14, Creatinine 1.09, Estimat Glomerular Filtration Rate 55, BUN/Creatinine Ratio 13, Glucose Level 131H, Calcium Level 10.6H, Corrected Calcium , Total Bilirubin 0.4, Aspartate Amino Transf (AST/SGOT) 18, Alanine Aminotransferase (ALT/SGPT) 25, Alkaline Phosphatase 89, C-Reactive Protein High Sensitivity 0.19, Total Protein 8.9H, Albumin 5.1H, Lipase 329H, Serum Alcohol < 10 08/24/20 13:51: Lactic Acid Level 1.98 Radiology Date of Exam:08/24/20 CT ABDOMEN/PELVIS W EXAMINATION: CT Abdomen and Pelvis with intravenous contrast. TECHNIQUE: Multiple contiguous axial images were obtained through the abdomen and pelvis after the uneventful administration of intravenous contrast. All CT scans use one or more of the following dose optimizing techniques: automated exposure control, MA and/or KvP adjustment based on a patient size and exam type, or iterative reconstruction. HISTORY: Abdominal pain, pancreatitis. COMPARISON: CT abdomen and pelvis from 11/15/2019. FINDINGS: Lung bases: The lung bases are clear. Solid organs: The liver is normal without focal lesion. The gallbladder is surgically absent. There is no biliary ductal dilation. Pancreas is normal without significant peripancreatic inflammation or stranding. No pancreatic ductal dilatation. Spleen is normal. Adrenal glands are normal. The kidneys are normal without hydronephrosis. Bowel: The stomach and small bowel are normal without obstruction. The transverse and descending colon are decompressed with suggestion of wall thickening, incompletely evaluated. The appendix is normal. Peritoneum: There is no intraperitoneal free fluid or free air. No suspicious lymphadenopathy. Vasculature: Normal without aneurysm. Musculoskeletal: Degenerative changes of the spine without suspicious osseous lesion or compression fracture. Pelvis: The uterus is surgically absent. No adnexal mass. The urinary bladder is normal. IMPRESSION: 1. Possible wall thickening of the transverse and descending colon which may be secondary to decompressed state. Differential consideration would include infectious or inflammatory colitis in the appropriate clinical setting. 2. No other acute abnormality in the abdomen or pelvis. Dictated by: Dictated on workstation # [id number] Dict: 08/24/20 1528 Trans: 08/24/20 1557 [id number] Interpreted by: JULIEN GENAO DO Electronically signed by: JULIEN GENAO DO 08/24/20 1557 Assessment/Plan Assessment/Plan Assessment/Plan Colitis - may just be underdistention, last colonoscopy did not show any pathology Pancreatitis - CT of pancreas shows no inflammation, just elevated enzymes Plan IV hydration, pain control, anti-emetics, recheck labs in am; would hold off on ABX until we see how pt is doing tomorrow. Would also keep NPO. LOLY BAHTTI DO Aug 24, 2020 19:03
[2020-08-24 20:00] VITALS: BP 182/101
[2020-08-24] MEDS ORDERED: amLODIPine 5 MG (NORVASC) TAB PO ONE (20:30)
[2020-08-24] MEDS ORDERED: NITROGLYCERIN 2% OINT 1 GM UNIT DOSE PACKET TOP PRN ×2 (20:30→22:15)
[2020-08-24 20:36] LABS: BILIRUBIN,URINE NEGATIVE (NEGATIVE); CLARITY,URINE CLEAR; COLOR,URINE YELLOW; GLUCOSE, URINE (UA) NEGATIVE (NEGATIVE); KETONES,URINE TRACE (NEGATIVE); LEUKOCYTE ESTERASE ,URINE NEGATIVE (NEGATIVE); NITRITE,URINE NEGATIVE (NEGATIVE); PH,URINE 7.5 (5-9); PROTEIN,URINE NEGATIVE (NEGATIVE)
[2020-08-24 20:42] LABS: BACTERIA,URINE TRACE /HPF; SQUAMOUS EPITHELIAL CELL,UR 0-2 /HPF; WBC,URINE RARE /HPF
[2020-08-24 20:48] LABS: AMPHETAMINE SCREEN, URINE NEGATIVE (NEGATIVE); BARBITURATE SCREEN URINE NEGATIVE (NEGATIVE); BENZODIAZEPINES SCREEN URINE NEGATIVE (NEGATIVE); CANNABINOID SCREEN, URINE POSITIVE (NEGATIVE); COCAINE SCREEN URINE NEGATIVE (NEGATIVE); METHADONE STAT NEGATIVE (NEGATIVE); METHAMPHETAMINE SCREEN URINE S NEGATIVE (NEGATIVE); OPIATE SCREEN URINE NEGATIVE (NEGATIVE); OXYCODONE STAT NEGATIVE (NEGATIVE); PROPOXYPHENE STAT NEGATIVE (NEGATIVE); TRICYCLIC ANTIDEPRESSANTS SCRE NEGATIVE (NEGATIVE)
[2020-08-24] MEDS: PROMETHAZINE INJ 25 MG/ML (PHENERGAN) AMP IV PRN (21:06)
[2020-08-24 21:39] VITALS: BP 182/101
[2020-08-24 22:29] VITALS: BP 172/99
[2020-08-24] MEDS: ENALAPRILAT 1.25 MG/1 ML (VASOTEC) 1 ML VIAL IV SCH ×2 (22:35→22:36)
[2020-08-24] MEDS: hydrALAZINE (APESOLINE) 20 MG/ML VIAL IV SCH (22:42)
[2020-08-24 22:45] VITALS: BP 178/94
[2020-08-25] VITALS (13 sets, daily range): BP systolic 120–177; BP diastolic 60–90
[2020-08-25] MEDS: LACTATED RINGERS 1,000 ML IV SCH ×4 (01:17→21:28)
[2020-08-25] MEDS: fentaNYL INJ 100 MCG/2 ML AMP IV PRN ×7 (01:34→21:37)
[2020-08-25 04:20] LABS: BASOPHILS % (AUTO) 0 % (0-10); EOSINOPHILS % (AUTO) 0 % (0-10); HEMATOCRIT 40 % (35-52); HEMOGLOBIN 12.6 g/dL (11.5-16.0); LYMPHOCYTES # (AUTO) 1.8 10^3/uL (1.0-4.0); LYMPHOCYTES % (AUTO) 14 % (12-44); MEAN CORPUSCULAR HEMOGLOBIN 27 pg (25-34); MEAN CORPUSCULAR HGB CONC 31 g/dL (32-36); MEAN CORPUSCULAR VOLUME 85 fL (80-99); MEAN PLATELET VOLUME 10.4 fL (9.0-12.2); MONOCYTES % (AUTO) 8 % (0-12); NEUTROPHILS # (AUTO) 9.6 10^3/uL (1.8-7.8); NEUTROPHILS % (AUTO) 77 % (42-75); PLATELET COUNT 345 10^3/uL (130-400); WHITE BLOOD COUNT 12.5 10^3/uL (4.3-11.0)
[2020-08-25 04:28] LABS: ALBUMIN 4.4 GM/DL (3.2-4.5); CHLORIDE 103 MMOL/L (98-107); POTASSIUM 3.7 MMOL/L (3.6-5.0); SODIUM 137 MMOL/L (135-145)
[2020-08-25 04:29] LABS: CALCIUM 9.5 MG/DL (8.5-10.1)
[2020-08-25 04:30] LABS: GLUCOSE 130 MG/DL (70-105)
[2020-08-25 04:31] LABS: TOTAL PROTEIN 7.4 GM/DL (6.4-8.2)
[2020-08-25 04:32] LABS: BILIRUBIN,TOTAL 0.7 MG/DL (0.1-1.0); CARBON DIOXIDE 23 MMOL/L (21-32)
[2020-08-25 04:34] LABS: ALKALINE PHOSPHATASE 74 U/L (40-136); CREATININE SERUM 0.81 MG/DL (0.60-1.30); GFR ESTIMATED > 60
[2020-08-25 04:35] LABS: BUN/CREATININE RATIO 11
[2020-08-25 04:37] LABS: ALANINE AMINOTRANSFERASE 36 U/L (0-55); LIPASE 35 U/L (8-78)
[2020-08-25] MEDS: hydrALAZINE (APESOLINE) 20 MG/ML VIAL IV SCH ×6 (05:07→21:43)
[2020-08-25] MEDS: PROMETHAZINE INJ 25 MG/ML (PHENERGAN) AMP IV PRN ×3 (05:48→22:50)
[2020-08-25] MEDS: ENALAPRILAT 2.5 MG/2 ML (VASOTEC) VIAL IV SCH ×2 (08:14→20:46)
[2020-08-25] MEDS: PANTOPRAZOLE 40 MG (PROTONIX) VIAL IV SCH (08:15)
[2020-08-25] MEDS: amLODIPine 5 MG (NORVASC) TAB PO SCH (08:19)
[2020-08-25] MEDS ORDERED: AMLO-251 PO (09:43)
[2020-08-25] MEDS ORDERED: SUMA100T3 PO (09:43)
[2020-08-25] MEDS ORDERED: PROP80TA3 PO (09:43)
[2020-08-25] MEDS ORDERED: HYOS-19 SL (09:43)
[2020-08-25] MEDS ORDERED: TIZA4TAB4 PO (09:43)
[2020-08-25] MEDS ORDERED: ONDA4TAB11 PO (09:43)
[2020-08-25] MEDS ORDERED: DIPH25CA79 PO (09:43)
[2020-08-25] MEDS: ONDANSETRON 4 MG/2 ML (SDV) Z0FRAN IV PRN ×2 (10:37→21:36)
--- NOTE | 2020-08-25 12:09 | History & Physical-Hospitalist ---
History of Present Illness HPI/Chief Complaint CC: N/V HPI: This is a 44yoWF clinic patient of [facility] who presents to the ER with refractory N/V and slightly elevated lipase. She has a h/o THC use. Surgery has been consulted. Pain meds are taken regularly with anti-emetics. Lipase now normal. Extremely high BP requiring multiple meds IV due to NPO status. Source: patient Exam Limitations: no limitations Date Seen 08/25/20 Time Seen by a Provider: 10:00 Attending Physician Hyun Salvador DO [facility] Referring Physician Date of Admission Aug 24, 2020 at 16:14 Home Medications & Allergies Home Medications Reviewed patient Home Medication Reconciliation performed by pharmacy medication reconciliations registered veterinary technician and/or nursing. Patients Allergies have been reviewed. Allergies Allergies Coded Allergies morphine (Verified Allergy, Unknown, CAUSES "REBOUND HEADACHES", 08/20/13) baclofen (Verified Adverse Reaction, Severe, 06/13/15) PATIENT UNAWARE OF REACTION BUT WAS HOSPITALIZED AFTER TAKING MEDICATION AND WAS TOLD IT WAS A REACTION DUE TO THE MEDICATION SHE TOOK. meloxicam (Verified Adverse Reaction, Severe, 06/13/15) PATIENT UNAWARE OF REACTION BUT WAS HOSPITALIZED AFTER TAKING MEDICATION AND WAS TOLD IT WAS A REACTION DUE TO THE MEDICATION SHE TOOK. NSAIDS (Non-Steroidal Anti-Inflamma (Verified Adverse Reaction, Mild, have IBS and avoid NSAIDS, 12/04/12) Past Zpniybc-Diilkw-Ybwqvr Hx Past Med/Social Hx: Reviewed Nursing Past Med/Soc Hx, Reviewed and Corrections made Patient Social History Marrital Status: single Employed/Student: unemployed Alcohol Use: Denies Use Recreational Drug Use: No (former hx) Drug of Choice: cannabis Smoking Status: Never a Smoker 2nd Hand Smoke Exposure: No Recent Foreign Travel: No Contact w/other who traveled: No Recent Hopitalizations: No Recent Infectious Disease Expo: No Immunizations Up To Date Tetanus Booster (TDap): Unknown Pediatric: No Date of Pneumonia Vaccine: Mar 03, 2014 Date of Influenza Vaccine: Mar 03, 2015 Seasonal Allergies Seasonal Allergies: No Past Medical History Surgeries: Bladder Surgery, Gallbladder, 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, Oophorectomy, Tubal Lig ation Currently Using CPAP: No Currently Using BIPAP: No Cardiac: Hypertension, Syncope Neurological: Seizure Disorder 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: Yes (HYST 2005--NO PHYSICIAN DOCUMENTATION OF ANY KIND OF CANCER) Sexually Transmitted Disease: Yes (HPV) HIV/AIDS: No 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 Disorders: Denies 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 Genitourinary: Bladder Infection Gastrointestinal: Gastroesophageal Reflux, Irritable Bowel Musculoskeletal: Chronic Back Pain Loss of Vision: Denies Cancer: Cervical, Colon Psychosocial: Anxiety, Depression History of Blood Disorders: No Adverse Reaction to Blood [place]: No Family History Reviewed Nursing Family Hx Diabetes mellitus 19 FATHER FHx: brain tumor 19 MOTHER HPV infection G8 SISTER No Family History of: AIDS Abdominal aortic aneurysm [place]'s disease Alcoholism Alzheimer's disease Aphasia Arthritis Asthma Cancer of mouth Cardiovascular disease Cataracts Colon cancer Completed stroke Congenital disease Congenital heart disease Coronary thrombosis Cystic fibrosis Deafness or hearing loss Dementia Drug abuse Dysphasia Fibrocystic disease of breast Gastroenteritis Glaucoma Headache disorder Hypercholesterolemia Hypertension Infertility Kidney disease Myocardial infarction Neoplasm Not obtainable due to adoption Osteoporosis Parkinson's disease Prostate cancer Psychosocial problem Respiratory disorder Seizure disorder Severe allergy Thyroid disease Tuberculosis Visual disorder Heart Disease, Hypertension, Other Conditions/Hx Review of Systems Constitutional: see HPI, weakness Gastrointestinal: abdominal pain, nausea, vomiting Physical Exam Physical Exam Vital Signs Vital Signs - First Documented 08/24/20 13:30 Temp 35.8 Pulse 92 Resp 22 B/P (MAP) 181/108 (132) Pulse Ox 98 O2 Delivery Room Air Capillary Refill : Less Than 3 Seconds Height, Weight, BMI Height: 5'6.00" Weight: 203lbs. 6.4oz. 92.039862kk; 33.63 BMI Method:Stated General Appearance: No Apparent Distress, Chronically ill, Obese Eyes: Right Eye Normal Inspection, Right Eye PERRL HEENT: PERRL/EOMI, Normal ENT Inspection, Pharynx Normal, Moist Mucous Membranes Neck: Full Range of Motion, Normal Inspection, Non Tender Respiratory: Chest Non Tender, Lungs Clear, Normal Breath Sounds, No Accessory Muscle Use, No Respiratory Distress Cardiovascular: Regular Rate, Rhythm, No Edema, No Gallop, No JVD, No Murmur, Normal Peripheral Pulses Gastrointestinal: Normal Bowel Sounds, No Organomegaly, No Pulsatile Mass, Non Tender, Soft Back: Normal Inspection, No CVA Tenderness, No Vertebral Tenderness Extremity: Normal Capillary Refill, Normal Inspection, Normal Range of Motion, Non Tender, No Calf Tenderness, No Pedal Edema Neurologic/Psychiatric: Alert, Oriented x3, No Motor/Sensory Deficits, Depressed Affect Skin: Normal Color, Warm/Dry Lymphatic: No Adenopathy Results Results/Procedures Labs Laboratory Tests 08/24/20 13:35 08/25/20 04:00 Patient resulted labs reviewed. Assessment/Plan Admission Diagnosis Assessment: Abdominal pain N/V THC use Elevated lipase Severe HTN Tachycardia Plan: Monitor BP Monitor pain Admission Status: Observation Diagnosis/Problems Diagnosis/Problems (1) Tetrahydrocannabinol (THC) dependence (2) Intractable nausea and vomiting Status: Acute (3) Generalized abdominal pain Status: Acute (4) Pancreatitis Status: Acute Qualifiers: Chronicity: acute Pancreatitis type: unspecified pancreatitis type Acute pancreatitis complication: no infection or necrosis Qualified Codes: K85.90 - Acute pancreatitis without necrosis or infection, unspecified (5) Hypertension Status: Acute HYUN SALVADOR DO Aug 25, 2020 12:09
[2020-08-25] MEDS ORDERED: ACETAMINOPHEN 325 MG TABLET ONE (14:06)
[2020-08-25] MEDS ORDERED: meTOprolol 5 MG/5 ML (LOPRESSOR) VIAL ONE (18:17)
[2020-08-25] MEDS: meTOprolol 5 MG/5 ML (LOPRESSOR) VIAL IV SCH ×2 (18:30→21:44)
--- NOTE | 2020-08-25 19:50 | Progress Note - Surgery ---
Subjective Time Seen by a Provider: 17:53 Subjective/Events-last exam Pt seen and examined, states she has had abdominal pain all day. Nurse is in room because pt is tachycardic. Pt denies vomiting, feels a little nauseous. Review of Systems General: No Chills; Fatigue HEENT: No Head Aches Pulmonary: No Dyspnea, No Cough Cardiovascular: No: Chest Pain, Palpitations Gastrointestinal: Nausea, Abdominal Pain; No: Vomiting Focused Exam Lactate Level 08/24/20 13:51: Lactic Acid Level 1.98 Objective Exam Vital Signs Date Time Temp Pulse Resp B/P (MAP) Pulse Ox O2 Delivery O2 Flow Rate FiO2 08/25/20 18:01 37.2 135 22 133/60 (84) 96 Room Air 08/25/20 15:57 37.2 119 20 147/75 (99) 97 Room Air 08/25/20 12:24 114 08/25/20 11:32 36.9 98 140/71 (94) 98 Room Air 08/25/20 09:35 137/63 (87) 08/25/20 09:00 Room Air 08/25/20 07:32 36.8 118 161/78 (105) 97 Room Air 08/25/20 06:47 117 08/25/20 05:13 160/81 (107) 08/25/20 05:12 162/84 (110) 08/25/20 04:48 37.6 97 20 177/86 (116) 96 Room Air 08/25/20 01:00 37.7 103 18 146/69 (94) 97 Room Air 08/25/20 01:00 112 08/24/20 22:45 94 178/94 (122) 08/24/20 22:29 93 08/24/20 22:29 37.0 100 18 172/99 (123) 95 Room Air 08/24/20 21:39 37.0 89 18 182/101 (128) 97 Room Air 08/24/20 21:00 Room Air 08/24/20 20:00 37.0 89 18 182/101 (128) 97 Room Air I & O 08/25/20 07:00 Intake Total 1000 ml Output Total 350 ml Balance 650 ml Capillary Refill : Less Than 3 Seconds General Appearance: Mild Distress (secondary to pain), Obese Respiratory: Lungs Clear, Normal Breath Sounds, No Accessory Muscle Use, No Respiratory Distress Cardiovascular: No Murmur, Tachycardia Gastrointestinal: soft, no organomegaly, no pulsatile mass, abnormal bowel sounds (slightly decreased), tenderness (generalized), hernia (small umbilical) Neurologic/Psychiatric: Alert, Oriented x3 Results Lab Laboratory Tests 08/24/20 20:32: Urine Color YELLOW, Urine Clarity CLEAR, Urine pH 7.5, Urine Specific [place] 1.010L, Urine Protein NEGATIVE, Urine Glucose (UA) NEGATIVE, Urine Ketones TRACEH, Urine Nitrite NEGATIVE, Urine Bilirubin NEGATIVE, Urine Urobilinogen 0.2, Urine Leukocyte Esterase NEGATIVE, Urine RBC (Auto) NEGATIVE, Urine RBC NONE, Urine WBC RARE, Urine Squamous Epithelial Cells 0-2, Urine Crystals NONE, Urine Bacteria TRACE, Urine Casts NONE, Urine Mucus NEGATIVE, Urine Culture Indicated NO, Urine Opiates Screen NEGATIVE, Urine Oxycodone Screen NEGATIVE, Urine Methadone Screen NEGATIVE, Urine Propoxyphene Screen NEGATIVE, Urine Barbiturates Screen NEGATIVE, Ur Tricyclic Antidepressants Screen NEGATIVE, Urine Phencyclidine Screen NEGATIVE, Urine Amphetamines Screen NEGATIVE, Urine Methamphetamines Screen NEGATIVE, Urine Benzodiazepines Screen NEGATIVE, Urine Cocaine Screen NEGATIVE, Urine Cannabinoids Screen POSITIVEH 08/25/20 04:00: White Blood Count 12.5H, Red Blood Count 4.75, Hemoglobin 12.6, Hematocrit 40, Mean Corpuscular Volume 85, Mean Corpuscular Hemoglobin 27, Mean Corpuscular Hemoglobin Concent 31L, Red Cell Distribution Width 16.1H, Platelet Count 345, Mean Platelet Volume 10.4, Immature Granulocyte % (Auto) 0, Neutrophils (%) (Auto) 77H, Lymphocytes (%) (Auto) 14, Monocytes (%) (Auto) 8, Eosinophils (%) (Auto) 0, Basophils (%) (Auto) 0, Neutrophils # (Auto) 9.6H, Lymphocytes # (Auto) 1.8, Monocytes # (Auto) 1.0, Eosinophils # (Auto) 0.0, Basophils # (Auto) 0.0, Immature Granulocyte # (Auto) 0.1, Sodium Level 137, Potassium Level 3.7, Chloride Level 103, Carbon Dioxide Level 23, Anion Gap 11, Blood Urea Nitrogen 9, Creatinine 0.81, Estimat Glomerular Filtration Rate > 60, BUN/Creatinine Ratio 11, Glucose Level 130H, Calcium Level 9.5, Corrected Calcium 9.2, Total Bilirubin 0.7, Aspartate Amino Transf (AST/SGOT) 47H, Alanine Aminotransferase (ALT/SGPT) 36, Alkaline Phosphatase 74, C-Reactive Protein High Sensitivity 0.55H, Total Protein 7.4, Albumin 4.4, Lipase 35 Assessment/Plan Assessment/Plan Assessment/Plan Colitis - may just be underdistention, last colonoscopy did not show any pathology Pancreatitis - CT of pancreas shows no inflammation, just elevated enzymes Tachycardia - sinus tach on EKG, would monitor WBC has come down slightly today and her Lipase is back to normal. I would co ntinue IV hydration, pain control, anti-emetics, recheck labs in am; continue to hold off on ABX. Would also keep NPO while she is having abdominal pain. LOLY BHATTI DO Aug 25, 2020 19:50
[2020-08-26] VITALS (7 sets, daily range): BP systolic 129–171; BP diastolic 61–92
[2020-08-26] MEDS: hydrALAZINE (APESOLINE) 20 MG/ML VIAL IV SCH ×7 (00:07→23:23)
[2020-08-26] MEDS: meTOprolol 5 MG/5 ML (LOPRESSOR) VIAL IV SCH ×7 (00:08→23:22)
[2020-08-26] MEDS: LACTATED RINGERS 1,000 ML IV SCH ×4 (00:37→20:42)
[2020-08-26] MEDS: fentaNYL INJ 100 MCG/2 ML AMP IV PRN ×7 (01:28→23:23)
[2020-08-26] MEDS: ACETAMINOPHEN 325 MG TABLET PO PRN ×2 (05:24→10:49)
[2020-08-26 05:33] LABS: BASOPHILS % (AUTO) 0 % (0-10); EOSINOPHILS % (AUTO) 0 % (0-10); HEMATOCRIT 38 % (35-52); HEMOGLOBIN 12.2 g/dL (11.5-16.0); LYMPHOCYTES # (AUTO) 2.2 10^3/uL (1.0-4.0); LYMPHOCYTES % (AUTO) 18 % (12-44); MEAN CORPUSCULAR HEMOGLOBIN 27 pg (25-34); MEAN CORPUSCULAR HGB CONC 32 g/dL (32-36); MEAN CORPUSCULAR VOLUME 86 fL (80-99); MEAN PLATELET VOLUME 9.2 fL (9.0-12.2); MONOCYTES # (AUTO) 1.5 10^3/uL (0.0-1.0); MONOCYTES % (AUTO) 12 % (0-12); NEUTROPHILS # (AUTO) 8.8 10^3/uL (1.8-7.8); NEUTROPHILS % (AUTO) 70 % (42-75); PLATELET COUNT 390 10^3/uL (130-400); WHITE BLOOD COUNT 12.6 10^3/uL (4.3-11.0)
[2020-08-26 05:40] LABS: ALBUMIN 3.9 GM/DL (3.2-4.5); CHLORIDE 101 MMOL/L (98-107); POTASSIUM 3.6 MMOL/L (3.6-5.0); SODIUM 136 MMOL/L (135-145)
[2020-08-26 05:42] LABS: CALCIUM 9.3 MG/DL (8.5-10.1)
[2020-08-26 05:43] LABS: GLUCOSE 125 MG/DL (70-105); TOTAL PROTEIN 6.7 GM/DL (6.4-8.2)
[2020-08-26 05:44] LABS: CARBON DIOXIDE 25 MMOL/L (21-32)
[2020-08-26 05:45] LABS: BILIRUBIN,TOTAL 0.9 MG/DL (0.1-1.0)
[2020-08-26 05:46] LABS: ALKALINE PHOSPHATASE 64 U/L (40-136); CREATININE SERUM 0.73 MG/DL (0.60-1.30); GFR ESTIMATED > 60
[2020-08-26 05:47] LABS: BUN/CREATININE RATIO 12
[2020-08-26 05:49] LABS: ALANINE AMINOTRANSFERASE 51 U/L (0-55)
[2020-08-26 05:50] LABS: LIPASE 41 U/L (8-78)
--- NOTE | 2020-08-26 06:08 | Progress Note - Hospitalist ---
Subjective HPI/CC On Admission Date Seen by Provider: Aug 26, 2020 Time Seen by Provider: 12:00 CC: N/V HPI: This is a 44yoWF clinic patient of [facility] who presents to the ER with refractory N/V and slightly elevated lipase. She has a h/o THC use. Surgery has been consulted. Pain meds are taken regularly with anti-emetics. Lipase now normal. Extremely high BP requiring multiple meds IV due to NPO status. Subjective/Events-last exam Patient still complains of abd pain N/V continue PT OT got her up and walked her Dr Villa will provide expertise Labs stable Review of Systems Gastrointestinal: Nausea, Vomiting, Abdominal Pain Focused Exam Lactate Level 08/24/20 13:51: Lactic Acid Level 1.98 Objective Exam Vital Signs Vital Signs Date Time Temp Pulse Resp B/P (MAP) Pulse Ox O2 Delivery O2 Flow Rate FiO2 08/26/20 15:24 37.3 107 18 135/77 (96) 96 Room Air Capillary Refill : Less Than 3 Seconds General Appearance: No Apparent Distress, WD/WN, Chronically ill, Obese Respiratory: Lungs Clear, Normal Breath Sounds Cardiovascular: Regular Rate, Rhythm Neurologic/Psychiatric: Alert, Oriented x3, No Motor/Sensory Deficits, Normal Mood/Affect Results/Procedures Lab Laboratory Tests 08/26/20 05:14 Patient resulted labs reviewed. Assessment/Plan Assessment and Plan Assess & Plan/Chief Complaint Assessment: Abdominal pain N/V THC use Elevated lipase Severe HTN Tachycardia Plan: Monitor BP Monitor pain 08/26/20: Supportive care DVT PPx Diagnosis/Problems Diagnosis/Problems (1) Tetrahydrocannabinol (THC) dependence (2) Intractable nausea and vomiting Status: Acute (3) Generalized abdominal pain Status: Acute (4) Pancreatitis Status: Acute Qualifiers: Chronicity: acute Pancreatitis type: unspecified pancreatitis type Acute pancreatitis complication: no infection or necrosis Qualified Codes: K85.90 - Acute pancreatitis without necrosis or infection, unspecified (5) Hypertension Status: Acute JOSE RUIZ DO Aug 26, 2020 06:08
[2020-08-26] MEDS: PANTOPRAZOLE 40 MG (PROTONIX) VIAL IV SCH (08:38)
[2020-08-26] MEDS: ENOXAPARIN 40 MG/0.4 ML (LOVENOX) SYR SC SCH (08:39)
[2020-08-26] MEDS: ONDANSETRON 4 MG/2 ML (SDV) Z0FRAN IV PRN ×2 (08:41→17:42)
[2020-08-26] MEDS: amLODIPine 5 MG (NORVASC) TAB PO SCH (08:48)
--- NOTE | 2020-08-26 10:39 | Physical Therapy Evaluation ---
PT Evaluation-General Medical Diagnosis Admission Date Aug 24, 2020 at 16:14 Medical Diagnosis: Nause/Vomiting Onset Date: Aug 24, 2020 Therapy Diagnosis Therapy Diagnosis: Functional mobility at PLOF Height/Weight Height (Feet): 5 Height (Inches): 6.00 Weight (Pounds): 203 Weight (Ounces): 6.4 Precautions Precautions/Isolations: Seizure, Standard Precautions Weight Bear Status Right Lower Extremity: Right Full Weight Bearing Left Lower Extremity: Left Full Weight Bearing Referral Physician: Madeleine Reason for Referral: Evaluation/Treatment Medical History Pertinent Medical History: HTN Additional Medical History Seizure disorder Current History ED walk in for N/V, abdominal pain Reviewed History: Yes Social History Home: Single Level Current Living Status: Significant Other Entry Into Home: Stairs With Railing PT Steps Into Home: 2 Prior Prior Level of Function SCALE: Activities may be completed with or without assistive devices. 5-Rtlhvfujwb-zqjvkjl completes the activity by him/herself with no assistance from a helper. 5-Set-up or Clean-up Assistance-helper sets up or cleans up; patient completes activity. [place] assists only prior to or following the activity. 4-Supervision or Touching Assistance-helper provides verbal cues and/or touching/steadying and/or contact guard assistance as patient completes activity. Assistance may be provided throughout the activity or intermittently. 3-Partial/Moderate Assistance-helper does LESS THAN HALF the effort. [place] lifts, holds or supports trunk or limbs, but provides less than half the effort. 2-Substantial/Maximal Assistance-helper does MORE THAN HALF the effort. [place] lifts or holds trunk or limbs and provides more than half the effort. 2-Nthaiwclf-qoqmqd does ALL the effort. Patient does none of the effort to complete the activity. Or, the assistance of 2 or more helpers is required for the patient to complete the activity. If activity was not attempted, code reason: 7-Patient Refused. 9-Not Applicable-not attempted and the patient did not perform the activity before the current illness, exacerbation or injury. 10-Not Attempted due to Environmental Limitations-(lack of equipment, weather restraints, etc.). 88-Not Attempted due to Medical Conditions or Safety Concerns. Bed Mobility: 6 Transfers (B,C,W/C): 6 Gait: 6 Stairs: 6 Indoor Mobility (Ambulation): Independent Stairs: Independent Prior Devices Use: None PT Evaluation-Current Subjective Patient reports no pain, she is mildly nauseous. Patient consented to PT. Objective Patient Orientation: Normal For Age Attachments: IV ROM/Strength ROM Upper Extremities WFL ROM Lower Extremities WFL Strength Upper Extremities WFL Strength Lower Extremities WFL Integumentary/Posture Posture Unremarkable Neuromuscular (Tone, Coordination, Reflexes) WNL Sensory Vision: Functional Hearing: Functional Sensation Right Lower Extremit: Intact Sensation Left Lower Extremity: Intact Transfers Roll Left to Right (QC): 6 Sit to Lying (QC): 6 Lying to Sitting/Side of Bed(Q: 6 Sit to Stand (QC): 6 Chair/Lzt-kd-Rkoeq Xfer(QC): 6 Gait Does the Patient Walk?: Yes Mode of Locomotion: Walk Anticipated Mode of Locomotion: Walk Walk 10 feet (QC): 6 Walk 50 ft with 2 Turns(QC): 6 Walk 150 ft (QC): 6 Distance: 300' Gait Assistive Device: None Comments/Gait Description Patient is steady with gait, no LOB noted. Balance Sitting Static: Normal Sitting Dynamic: Normal Standing Static: Normal Standing Dynamic: Normal Assessment/Needs Patient is currently at independent [facility] with all gross motor skills safely and does not require skilled therapy intervention. Rehab Potential: Good PT Plan Treatment/Plan Treatment Plan: Discontinue PT, goals met Treatment Duration: Aug 26, 2020 Frequency: 1 time per week Patient and/or Family Agrees t: Yes Time/GCodes Time In: 939 Time Out: 50 Total Billed Treatment Time: 10 Total Billed Treatment 1 visit: EVL: 10' WILBERT DEL ROSARIO PT Aug 26, 2020 10:39
[2020-08-26] MEDS: ENALAPRILAT 2.5 MG/2 ML (VASOTEC) VIAL IV SCH ×2 (10:46→20:44)
--- NOTE | 2020-08-26 18:28 | Progress Note - Surgery ---
Subjective Time Seen by a Provider: 17:51 Subjective/Events-last exam Pt seen and examined, no new complaints; still has abd pain and nausea. Pt states only the Fentanyl helps her pain, nurse states she is getting it every 2 hours[address] She was asking Dr[address] Salvador if she should get a colonoscopy. Review of Systems General: Fatigue, Malaise Pulmonary: No Dyspnea, No Cough Cardiovascular: No: Chest Pain, Palpitations Gastrointestinal: Nausea, Abdominal Pain; No: Vomiting Focused Exam Lactate Level 08/24/20 13:51: Lactic Acid Level 1.98 Objective Exam Vital Signs Date Time Temp Pulse Resp B/P (MAP) Pulse Ox O2 Delivery O2 Flow Rate FiO2 08/26/20 15:24 37.3 107 18 135/77 (96) 96 Room Air 08/26/20 12:42 92 08/26/20 12:00 37.4 90 16 129/75 (93) 95 Room Air 08/26/20 08:00 36.6 101 16 171/92 (118) 95 Room Air 08/26/20 07:00 97 08/26/20 05:28 100 129/62 (84) 08/26/20 04:07 37.2 105 18 142/82 (102) 97 Room Air 08/26/20 01:00 117 08/25/20 23:51 37.1 107 20 120/80 (93) 95 Room Air 08/25/20 23:24 96 Room Air 08/25/20 21:30 100 137/78 (97) 08/25/20 21:15 Room Air 08/25/20 20:52 106 150/90 (110) 08/25/20 19:44 37.4 106 20 133/78 (96) 95 Room Air 08/25/20 19:00 98 I & O 08/26/20 06:59 Output Total 1600 ml Balance -1600 ml Capillary Refill : Less Than 3 Seconds General Appearance: No Apparent Distress, Chronically ill, Obese HEENT: PERRL/EOMI, Moist Mucous Membranes Respiratory: Lungs Clear, Normal Breath Sounds Cardiovascular: Regular Rate, Rhythm, No Murmur Gastrointestinal: soft, no organomegaly, no pulsatile mass, abnormal bowel sounds (slightly decreased), tenderness (generalized), hernia (small umbilical) Extremity: No Calf Tenderness, No Pedal Edema Skin: Normal Color, Warm/Dry Results Lab Laboratory Tests 08/26/20 05:14: White Blood Count 12.6H, Red Blood Count 4.48, Hemoglobin 12.2, Hematocrit 38, Mean Corpuscular Volume 86, Mean Corpuscular Hemoglobin 27, Mean Corpuscular Hemoglobin Concent 32, Red Cell Distribution Width 16.9H, Platelet Count 390, Mean Platelet Volume 9.2, Immature Granulocyte % (Auto) 0, Neutrophils (%) (Auto) 70, Lymphocytes (%) (Auto) 18, Monocytes (%) (Auto) 12, Eosinophils (%) (Auto) 0, Basophils (%) (Auto) 0, Neutrophils # (Auto) 8.8H, Lymphocytes # ( Auto) 2.2, Monocytes # (Auto) 1.5H, Eosinophils # (Auto) 0.0, Basophils # (Auto) 0.0, Immature Granulocyte # (Auto) 0.0, Sodium Level 136, Potassium Level 3.6, Chloride Level 101, Carbon Dioxide Level 25, Anion Gap 10, Blood Urea Nitrogen 9, Creatinine 0.73, Estimat Glomerular Filtration Rate > 60, BUN/Creatinine Ratio 12, Glucose Level 125H, Calcium Level 9.3, Corrected Calcium 9.4, Total Bilirubin 0.9, Aspartate Amino Transf (AST/SGOT) 39H, Alanine Aminotransferase (ALT/SGPT) 51, Alkaline Phosphatase 64, Total Protein 6.7, Albumin 3.9, Lipase 41 Assessment/Plan Assessment/Plan Assessment/Plan Colitis - WBC has not gone up (not on ABX) last colonoscopy did not show any pathology and I am not sure there is a benefit to doing one now Pancreatitis - CT of pancreas shows no inflammation and enzymes normal now Tachycardia - was at 130, went down to 90's and occasionally back into low 100's, continue monitoring I would continue IV hydration, pain control, anti-emetics, recheck labs and no ABX. Will start clears and see how she does. LOLY BHATTI DO Aug 26, 2020 18:28
[2020-08-27] MEDS: fentaNYL INJ 100 MCG/2 ML AMP IV PRN ×8 (02:32→20:48)
[2020-08-27] MEDS: ONDANSETRON 4 MG/2 ML (SDV) Z0FRAN IV PRN ×4 (02:32→20:48)
[2020-08-27] MEDS: LACTATED RINGERS 1,000 ML IV SCH ×2 (02:36→11:03)
[2020-08-27 03:34] VITALS: BP 135/63
[2020-08-27] MEDS: hydrALAZINE (APESOLINE) 20 MG/ML VIAL IV SCH ×6 (03:36→23:18)
[2020-08-27] MEDS: meTOprolol 5 MG/5 ML (LOPRESSOR) VIAL IV SCH ×6 (03:36→23:18)
[2020-08-27 05:58] LABS: BASOPHILS % (AUTO) 0 % (0-10); EOSINOPHILS % (AUTO) 0 % (0-10); HEMATOCRIT 40 % (35-52); HEMOGLOBIN 12.3 g/dL (11.5-16.0); LYMPHOCYTES # (AUTO) 2.1 10^3/uL (1.0-4.0); LYMPHOCYTES % (AUTO) 26 % (12-44); MEAN CORPUSCULAR HEMOGLOBIN 27 pg (25-34); MEAN CORPUSCULAR HGB CONC 31 g/dL (32-36); MEAN CORPUSCULAR VOLUME 88 fL (80-99); MONOCYTES # (AUTO) 0.9 10^3/uL (0.0-1.0); MONOCYTES % (AUTO) 12 % (0-12); NEUTROPHILS % (AUTO) 61 % (42-75); PLATELET COUNT 353 10^3/uL (130-400); WHITE BLOOD COUNT 8.1 10^3/uL (4.3-11.0)
[2020-08-27 06:29] LABS: ALBUMIN 3.9 GM/DL (3.2-4.5); CHLORIDE 100 MMOL/L (98-107); POTASSIUM 3.4 MMOL/L (3.6-5.0); SODIUM 137 MMOL/L (135-145)
[2020-08-27 06:30] LABS: CALCIUM 9.3 MG/DL (8.5-10.1)
[2020-08-27 06:32] LABS: GLUCOSE 97 MG/DL (70-105); TOTAL PROTEIN 6.5 GM/DL (6.4-8.2)
[2020-08-27 06:33] LABS: CARBON DIOXIDE 26 MMOL/L (21-32)
[2020-08-27 06:34] LABS: BILIRUBIN,TOTAL 0.9 MG/DL (0.1-1.0)
[2020-08-27 06:35] LABS: ALKALINE PHOSPHATASE 63 U/L (40-136); CREATININE SERUM 0.69 MG/DL (0.60-1.30); GFR ESTIMATED > 60
[2020-08-27 06:36] LABS: BUN/CREATININE RATIO 13
[2020-08-27 06:38] LABS: ALANINE AMINOTRANSFERASE 42 U/L (0-55)
--- NOTE | 2020-08-27 07:59 | Progress Note - Hospitalist ---
Subjective HPI/CC On Admission Date Seen by Provider: Aug 27, 2020 Time Seen by Provider: 11:00 CC: N/V HPI: This is a 44yoWF clinic patient of [facility] who presents to the ER with refractory N/V and slightly elevated lipase. She has a h/o THC use. Surgery has been consulted. Pain meds are taken regularly with anti-emetics. Lipase now normal. Extremely high BP requiring multiple meds IV due to NPO status. Subjective/Events-last exam Patient is still having abdominal pain Requests EGD and Colonoscopy since that resolved the issue a few years ago when she had this episode Labs reviewed Review of Systems Gastrointestinal: Nausea, Abdominal Pain Focused Exam Lactate Level Objective Exam Vital Signs Vital Signs Date Time Temp Pulse Resp B/P (MAP) Pulse Ox O2 Delivery O2 Flow Rate FiO2 08/27/20 16:21 36.8 94 18 146/74 (98) 98 Room Air Capillary Refill : Less Than 3 Seconds General Appearance: No Apparent Distress, WD/WN, Chronically ill, Obese Respiratory: Lungs Clear Cardiovascular: Regular Rate, Rhythm Neurologic/Psychiatric: Alert, Oriented x3, No Motor/Sensory Deficits, Normal Mood/Affect Results/Procedures Lab Laboratory Tests 08/27/20 05:06 Patient resulted labs reviewed. Assessment/Plan Assessment and Plan Assess & Plan/Chief Complaint Assessment: Abdominal pain N/V THC use Elevated lipase Severe HTN Tachycardia Plan: Monitor BP Monitor pain 08/26/20: Supportive care DVT PPx 08/27/20: EGD colonoscopy tomorrow Diagnosis/Problems Diagnosis/Problems (1) Tetrahydrocannabinol (THC) dependence (2) Intractable nausea and vomiting Status: Acute (3) Generalized abdominal pain Status: Acute (4) Pancreatitis Status: Acute Qualifiers: Chronicity: acute Pancreatitis type: unspecified pancreatitis type Acute pancreatitis complication: no infection or necrosis Qualified Codes: K85.90 - Acute pancreatitis without necrosis or infection, unspecified (5) Hypertension Status: Acute JOSE RUIZ DO Aug 27, 2020 07:59
[2020-08-27 08:00] VITALS: BP 134/73
[2020-08-27] MEDS: ACETAMINOPHEN 325 MG TABLET PO PRN (08:00)
[2020-08-27] MEDS: ENOXAPARIN 40 MG/0.4 ML (LOVENOX) SYR SC SCH (08:39)
[2020-08-27] MEDS: amLODIPine 5 MG (NORVASC) TAB PO SCH (08:39)
[2020-08-27] MEDS: PANTOPRAZOLE 40 MG (PROTONIX) VIAL IV SCH (08:40)
[2020-08-27] MEDS: ENALAPRILAT 2.5 MG/2 ML (VASOTEC) VIAL IV SCH ×2 (08:40→20:47)
--- NOTE | 2020-08-27 10:43 | Progress Note - Surgery ---
SULYJI MED STUDENT 08/27/20 1043: Subjective Date Seen by a Provider: Aug 27, 2020 Time Seen by a Provider: 08:30 Subjective/Events-last exam Pt is awake and lying in bed this morning. Appears to be in some distress. States her stomach is hurting. She wants to know if she can have an upper and lower scope. States her pain is located all over her stomach, crampy, about a 5, no radiation. LBM saturday. States she is passing gas. Pain meds are helping a bit. She is on clears, no nausea or vomiting with clears. States she had some reflux yesterday. She is doing PT. Review of Systems General: No Chills HEENT: Head Aches; No Visual Changes Pulmonary: No Dyspnea, No Cough Cardiovascular: No: Chest Pain, Palpitations Gastrointestinal: Abdominal Pain (Diffuse, crampy), Other (Bloating); No: Nausea, Vomiting Genitourinary: No Dysuria, No Hematuria Musculoskeletal: No: leg pain Focused Exam Lactate Level 08/24/20 13:51: Lactic Acid Level 1.98 Objective Exam Vital Signs Date Time Temp Pulse Resp B/P (MAP) Pulse Ox O2 Delivery O2 Flow Rate FiO2 08/27/20 09:00 Room Air 08/27/20 08:00 36.6 101 18 134/73 (93) 96 Room Air 08/27/20 07:00 93 08/27/20 03:34 36.5 87 16 135/63 (87) 96 Room Air 08/27/20 01:00 99 08/26/20 23:30 97 Room Air 08/26/20 23:18 36.6 90 16 130/85 (100) 98 Room Air 08/26/20 20:40 Room Air 08/26/20 19:17 37.0 95 16 129/61 (83) 96 Room Air 08/26/20 19:00 112 08/26/20 15:24 37.3 107 18 135/77 (96) 96 Room Air 08/26/20 12:42 92 08/26/20 12:00 37.4 90 16 129/75 (93) 95 Room Air I & O 08/27/20 07:00 Intake Total 2270 ml Output Total 2450 ml Balance -180 ml Capillary Refill : Less Than 3 Seconds General Appearance: Chronically ill, Mild Distress, Obese Respiratory: Chest Non Tender, Lungs Clear, Normal Breath Sounds, No Accessory Muscle Use, No Respiratory Distress Cardiovascular: Regular Rate, Rhythm, No Murmur Peripheral Pulses: 2+ Radial Pulses (R), 2+ Radial Pulses (L) Gastrointestinal: soft, no organomegaly, no pulsatile mass, abnormal bowel sounds (slightly decreased), tenderness (generalized), hernia (small umbilical) Extremity: No Calf Tenderness, No Pedal Edema Neurologic/Psychiatric: Alert, Oriented x3 Skin: Normal Color, Warm/Dry Results Lab Laboratory Tests 08/27/20 05:06: White Blood Count 8.1, Red Blood Count 4.53, Hemoglobin 12.3, Hematocrit 40, Mean Corpuscular Volume 88, Mean Corpuscular Hemoglobin 27, Mean Corpuscular H emoglobin Concent 31L, Red Cell Distribution Width 16.9H, Platelet Count 353, Mean Platelet Volume 10.0, Immature Granulocyte % (Auto) 0, Neutrophils (%) (Auto) 61, Lymphocytes (%) (Auto) 26, Monocytes (%) (Auto) 12, Eosinophils (%) (Auto) 0, Basophils (%) (Auto) 0, Neutrophils # (Auto) 5.0, Lymphocytes # (Auto) 2.1, Monocytes # (Auto) 0.9, Eosinophils # (Auto) 0.0, Basophils # (Auto) 0.0, Immature Granulocyte # (Auto) 0.0, Sodium Level 137, Potassium Level 3.4L, Chloride Level 100, Carbon Dioxide Level 26, Anion Gap 11, Blood Urea Nitrogen 9, Creatinine 0.69, Estimat Glomerular Filtration Rate > 60, BUN/Creatinine Ratio 13, Glucose Level 97, Calcium Level 9.3, Corrected Calcium 9.4, Total Bilirubin 0.9, Aspartate Amino Transf (AST/SGOT) 31, Alanine Aminotransferase (ALT/SGPT) 42, Alkaline Phosphatase 63, Total Protein 6.5, Albumin 3.9 Assessment/Plan Assessment/Plan Assessment/Plan Colitis -WBC continue to decrease, patient asking about EGD/Colonoscopy, no clear benefit at this time -Continue IV, Pain meds, Anti-emetics, Continue CBC -Tolerating clears, may try soft diet Pancreatitis -CT of pancreas shows no inflammation and enzymes normal now Tachycardia -In 90's this morning, continue to monitor. MOHAN VILLA DO 08/27/20 1527: Subjective Time Seen by a Provider: 12:48 Subjective/Events-last exam Pt seen and examined, states the abdominal pain is no better. Denies nausea and vomiting Review of Systems General: No Chills HEENT: Head Aches; No Visual Changes Pulmonary: No Dyspnea, No Cough Cardiovascular: No: Chest Pain, Palpitations Gastrointestinal: Abdominal Pain (Diffuse, crampy), Other (Bloating); No: Nausea, Vomiting Genitourinary: No Dysuria, No Hematuria Objective Exam General Appearance: Mild Distress, Obese HEENT: Pharynx Normal, Other (poor dentition) Respiratory: Chest Non Tender, Lungs Clear, Normal Breath Sounds, No Accessory Muscle Use, No Respiratory Distress Cardiovascular: Regular Rate, Rhythm, No Murmur Gastrointestinal: soft, no organomegaly, no pulsatile mass, abnormal bowel sounds (slightly decreased), tenderness (generalized), hernia (small umbilical) Extremity: No Calf Tenderness, No Pedal Edema Neurologic/Psychiatric: Alert, Oriented x3 Assessment/Plan Assessment/Plan Assessment/Plan Continued Abdominal pain - with signs of Colitis on CT GERD Will start Miralax prep on pt and plan to do EGD and Colonoscopy tomorrow (pt requested it be done now, does not want to wait for outpt - "pain is too bad"). Discussed risks and complications with pt; not limited to pain, bleeding, infection and even esophageal or intestinal perforation. All questions answered to her satisfaction. Supervisory-Addendum Brief Verification & Attestation Participated in pt care: history, MDM, physical Personally performed: exam, history, MDM Care discussed with: Medical Student Procedures: n/a Verification and Attestation of Medical Student E/M Service A medical student performed and documented this service. I then reviewed and verified all information documented by the medical student and made modifications to such information, when appropriate. I personally performed a physical exam, medical decision making and then discussed any differences between the notes and made revisions as necessary to create one note. Mohan Villa , 08/27/20 , 15:26 JI TUBBS MED STUDENT Aug 27, 2020 10:43 MOHAN VILLA DO Aug 27, 2020 15:27
[2020-08-27 12:00] VITALS: BP 146/63
[2020-08-27] MEDS: POTASSIUM CL 10MEQ/50ML IVPB 50 ML IV SCH ×4 (12:45→15:47)
[2020-08-27] MEDS: BISACODYL 10 MG SUPP (DULCOLAX) PR ONE ×2 (13:06→13:07)
[2020-08-27] MEDS ORDERED: BISACODYL 5 MG (DULCOLAX) TABLET PO SCH ×2 (13:30→16:00)
[2020-08-27 16:21] VITALS: BP 146/74
[2020-08-27] MEDS ORDERED: polyethylene glycoL Bowel Prep(MIRALAX) 238 GM PO SCH (18:00)
[2020-08-27 19:37] VITALS: BP 126/60
[2020-08-27 23:15] VITALS: BP 132/77
[2020-08-28] MEDS: ONDANSETRON 4 MG/2 ML (SDV) Z0FRAN IV PRN ×3 (00:40→18:36)
[2020-08-28] MEDS: LACTATED RINGERS 1,000 ML IV SCH (00:40)
[2020-08-28] MEDS: fentaNYL INJ 100 MCG/2 ML AMP IV PRN ×4 (01:27→12:16)
[2020-08-28 04:06] VITALS: BP 141/74
[2020-08-28] MEDS: meTOprolol 5 MG/5 ML (LOPRESSOR) VIAL IV SCH ×3 (04:07→12:17)
[2020-08-28] MEDS: hydrALAZINE (APESOLINE) 20 MG/ML VIAL IV SCH ×3 (04:07→12:16)
[2020-08-28 05:36] LABS: ALBUMIN 3.9 GM/DL (3.2-4.5); CHLORIDE 102 MMOL/L (98-107); POTASSIUM 3.2 MMOL/L (3.6-5.0); SODIUM 138 MMOL/L (135-145)
[2020-08-28 05:37] LABS: CALCIUM 9.1 MG/DL (8.5-10.1)
[2020-08-28 05:39] LABS: GLUCOSE 106 MG/DL (70-105); TOTAL PROTEIN 6.4 GM/DL (6.4-8.2)
[2020-08-28 05:40] LABS: CARBON DIOXIDE 26 MMOL/L (21-32)
[2020-08-28 05:41] LABS: BILIRUBIN,TOTAL 0.5 MG/DL (0.1-1.0)
[2020-08-28 05:42] LABS: ALKALINE PHOSPHATASE 61 U/L (40-136); CREATININE SERUM 0.69 MG/DL (0.60-1.30); GFR ESTIMATED > 60
[2020-08-28 05:43] LABS: BUN/CREATININE RATIO 12
[2020-08-28 05:45] LABS: ALANINE AMINOTRANSFERASE 40 U/L (0-55)
[2020-08-28 05:49] LABS: BASOPHILS % (AUTO) 0 % (0-10); EOSINOPHILS % (AUTO) 0 % (0-10); HEMATOCRIT 39 % (35-52); HEMOGLOBIN 12.2 g/dL (11.5-16.0); LYMPHOCYTES # (AUTO) 2.4 10^3/uL (1.0-4.0); LYMPHOCYTES % (AUTO) 33 % (12-44); MEAN CORPUSCULAR HEMOGLOBIN 27 pg (25-34); MEAN CORPUSCULAR HGB CONC 31 g/dL (32-36); MEAN CORPUSCULAR VOLUME 87 fL (80-99); MEAN PLATELET VOLUME 9.6 fL (9.0-12.2); MONOCYTES # (AUTO) 0.8 10^3/uL (0.0-1.0); MONOCYTES % (AUTO) 12 % (0-12); NEUTROPHILS # (AUTO) 3.8 10^3/uL (1.8-7.8); NEUTROPHILS % (AUTO) 54 % (42-75); PLATELET COUNT 364 10^3/uL (130-400); WHITE BLOOD COUNT 7.1 10^3/uL (4.3-11.0)
--- NOTE | 2020-08-28 07:15 | Progress Note - Hospitalist ---
Subjective HPI/CC On Admission Date Seen by Provider: Aug 28, 2020 Time Seen by Provider: 13:00 CC: N/V HPI: This is a 44yoWF clinic patient of [facility] who presents to the ER with refractory N/V and slightly elevated lipase. She has a h/o THC use. Surgery has been consulted. Pain meds are taken regularly with anti-emetics. Lipase now normal. Extremely high BP requiring multiple meds IV due to NPO status. Subjective/Events-last exam Patient had scopes C-scope helped remove a lot of constipation DC pain med IV Nausea still present Advancing diet Review of Systems General: Fatigue Gastrointestinal: Abdominal Pain Objective Exam Vital Signs Vital Signs Date Time Temp Pulse Resp B/P (MAP) Pulse Ox O2 Delivery O2 Flow Rate FiO2 08/28/20 20:25 Room Air 08/28/20 19:34 36.9 110 20 139/82 (101) 99 Capillary Refill : Less Than 3 Seconds General Appearance: No Apparent Distress, WD/WN, Chronically ill, Obese Respiratory: Lungs Clear Cardiovascular: Regular Rate, Rhythm Neurologic/Psychiatric: Alert, Oriented x3, No Motor/Sensory Deficits, Normal Mood/Affect Results/Procedures Lab Laboratory Tests 08/28/20 05:02 Patient resulted labs reviewed. Assessment/Plan Assessment and Plan Assess & Plan/Chief Complaint Assessment: Abdominal pain N/V THC use Elevated lipase Severe HTN Tachycardia Plan: Monitor BP Monitor pain 08/26/20: Supportive care DVT PPx 08/27/20: EGD colonoscopy tomorrow 08/28/20: s/p scopes today Nausea treatment Reg diet advanced Diagnosis/Problems Diagnosis/Problems (1) Tetrahydrocannabinol (THC) dependence (2) Intractable nausea and vomiting Status: Acute (3) Generalized abdominal pain Status: Acute (4) Pancreatitis Status: Acute Qualifiers: Chronicity: acute Pancreatitis type: unspecified pancreatitis type Acute pancreatitis complication: no infection or necrosis Qualified Codes: K85.90 - Acute pancreatitis without necrosis or infection, unspecified (5) Hypertension Status: Acute JOSE RUIZ DO Aug 28, 2020 07:15
[2020-08-28] MEDS: PROMETHAZINE INJ 25 MG/ML (PHENERGAN) AMP IV PRN (07:55)
[2020-08-28 08:00] VITALS: BP 129/58
[2020-08-28] MEDS: POTASSIUM CL 10MEQ/50ML IVPB 50 ML IV SCH ×4 (08:10→14:32)
[2020-08-28] MEDS: PANTOPRAZOLE 40 MG (PROTONIX) VIAL IV SCH (08:31)
[2020-08-28] MEDS: amLODIPine 5 MG (NORVASC) TAB PO SCH (08:32)
[2020-08-28] MEDS: ENALAPRILAT 2.5 MG/2 ML (VASOTEC) VIAL IV SCH (08:32)
[2020-08-28] MEDS: ENOXAPARIN 40 MG/0.4 ML (LOVENOX) SYR SC SCH (08:32)
[2020-08-28] MEDS ORDERED: HURRICAINE EXT TUBE (BENZOCAINE) ONE (09:24)
[2020-08-28] MEDS ORDERED: MIDAZOLAM 2 MG/2 ML (VERSED) VIAL ONE (09:36)
[2020-08-28] MEDS ORDERED: PROPOFOL INJECTION 50 ML IV ONE ×2 (09:36→10:19)
[2020-08-28] MEDS ORDERED: LACTATED RINGERS 1,000 ML IV ONE (09:43)
--- NOTE | 2020-08-28 09:45 | Progress Note - Surgery ---
JI TUBBS MED STUDENT 08/28/20 0945: Subjective Date Seen by a Provider: Aug 28, 2020 Time Seen by a Provider: 07:50 Subjective/Events-last exam Patient is awake and lying in bed this morning. States she has had 2 large BM since this morning. States she feels gassy. She received pain meds at 0730, states now her pain is about 4-5 all over abdominal pain. Like a a period cramp, no radiation. She is NPO. Has had episodes of nausea but no vomiting. Nurse states that some K was ordered for her, She did some PT yesterday, is able to walk on her own. Review of Systems General: No Chills HEENT: No Head Aches, No Visual Changes Pulmonary: No Dyspnea, No Cough Cardiovascular: No: Chest Pain, Palpitations Gastrointestinal: Nausea, Abdominal Pain (Diffuse, period cramp-like); No: Vomiting Genitourinary: No Dysuria, No Hematuria Musculoskeletal: No: leg pain Objective Exam Vital Signs Date Time Temp Pulse Resp B/P (MAP) Pulse Ox O2 Delivery O2 Flow Rate FiO2 08/28/20 08:00 36.4 85 20 129/58 (81) 96 Room Air 08/28/20 07:00 97 08/28/20 04:06 36.5 99 20 141/74 (96) 98 Room Air 08/28/20 01:00 94 08/27/20 23:15 37.0 91 18 132/77 (95) 96 Room Air 08/27/20 19:40 Room Air 08/27/20 19:37 37.5 107 18 126/60 (82) 96 Room Air 08/27/20 19:00 100 08/27/20 16:21 36.8 94 18 146/74 (98) 98 Room Air 08/27/20 12:41 94 08/27/20 12:00 36.5 92 18 146/63 (90) 98 Room Air I & O 08/28/20 07:00 Intake Total 2726 ml Output Total 2400 ml Balance 326 ml Capillary Refill : Less Than 3 Seconds General Appearance: No Apparent Distress, Chronically ill, Obese HEENT: Other (poor dentition) Respiratory: Lungs Clear, Normal Breath Sounds, No Accessory Muscle Use, No Respiratory Distress Cardiovascular: Regular Rate, Rhythm, No Edema, No Murmur Peripheral Pulses: 2+ Radial Pulses (R), 2+ Radial Pulses (L) Gastrointestinal: normal bowel sounds, soft, no organomegaly, no pulsatile mass, tenderness (generalized), hernia (small umbilical) Extremity: No Calf Tenderness, No Pedal Edema Neurologic/Psychiatric: Alert, Oriented x3, No Motor/Sensory Deficits, Normal Mood/Affect Skin: Normal Color, Warm/Dry Results Lab Laboratory Tests 08/27/20 16:32: Coronavirus 2019 ([facility]) Negative 08/28/20 05:02: White Blood Count 7.1, Red Blood Count 4.48, Hemoglobin 12.2, Hematocrit 39, Mean Corpuscular Volume 87, Mean Corpuscular Hemoglobin 27, Mean Corpuscular Hemoglobin Concent 31L, Red Cell Distribution Width 16.9H, Platelet Count 364, Mean Platelet Volume 9.6, Immature Granulocyte % (Auto) 0, Neutrophils (%) (Auto) 54, Lymphocytes (%) (Auto) 33, Monocytes (%) (Auto) 12, Eosinophils (%) (Auto) 0, Basophils (%) (Auto) 0, Neutrophils # (Auto) 3.8, Lymphocytes # (Auto) 2.4, Monocytes # (Auto) 0.8, Eosinophils # (Auto) 0.0, Basophils # (Auto) 0.0, Immature Granulocyte # (Auto) 0.0, Sodium Level 138, Potassium Level 3.2L, Chloride Level 102, Carbon Dioxide Level 26, Anion Gap 10, Blood Urea Nitrogen 8, Creatinine 0.69, Estimat Glomerular Filtration Rate > 60, BUN/Creatinine Ratio 12, Glucose Level 106H, Calcium Level 9.1, Corrected Calcium 9.2, Total Bilirubin 0.5, Aspartate Amino Transf (AST/SGOT) 30, Alanine Aminotransferase (ALT/SGPT) 40, Alkaline Phosphatase 61, Total Protein 6.4, Albumin 3.9 Assessment/Plan Assessment/Plan Assessment/Plan Continued Abdominal pain - with signs of Colitis on CT -PT prepped, will do EGD,Colonoscopy today -Continue pain meds, encourage ambulation -If negative EGD/Colonoscopy, pt should be able to go home -Wean pt off fentanyl Hypokalemia -Down to 3.2 this morning -Replacing K -Check BMP tomorrow MOHAN VILLA DO 08/28/20 1017: Subjective Time Seen by a Provider: 10:01 Subjective/Events-last exam Pt seen and examined, no new complaints. She is ready for endoscopies. Review of Systems General: No Chills HEENT: No Head Aches, No Visual Changes Pulmonary: No Dyspnea, No Cough Cardiovascular: No: Chest Pain, Palpitations Gastrointestinal: Nausea, Abdominal Pain (Diffuse, period cramp-like); No: Vomiting Objective Exam General Appearance: No Apparent Distress, Chronically ill, Obese HEENT: Other (poor dentition) Respiratory: Lungs Clear, Normal Breath Sounds, No Accessory Muscle Use, No Respiratory Distress Cardiovascular: Regular Rate, Rhythm, No Murmur Gastrointestinal: soft, no organomegaly, no pulsatile mass, tenderness (generalized), hernia (small umbilical) Extremity: No Calf Tenderness Neurologic/Psychiatric: Alert, Oriented x3 Skin: Normal Color, Warm/Dry Assessment/Plan Assessment/Plan Assessment/Plan Continued Abdominal pain - with signs of Colitis on CT -PT prepped, will do EGD,Colonoscopy today -Continue pain meds, encourage ambulation -If negative EGD/Colonoscopy, pt should be able to go home -Wean pt off fentanyl Hypokalemia -Down to 3.2 this morning -Replacing K -Check BMP tomorrow Supervisory-Addendum Brief Verification & Attestation Participated in pt care: history, MDM, physical Personally performed: exam, history, MDM Care discussed with: Medical Student Procedures: n/a Verification and Attestation of Medical Student E/M Service A medical student performed and documented this service. I then reviewed and verified all information documented by the medical student and made modifications to such information, when appropriate. I personally performed a physical exam, medical decision making and then discussed any differences between the notes and made revisions as necessary to create one note. Mhoan Villa , 08/28/20 , 10:17 JI TUBBS MED STUDENT Aug 28, 2020 09:45 MOHAN VILLA DO Aug 28, 2020 10:17
[2020-08-28] MEDS ORDERED: PHENYLEPHRINE 100 MCG/ML 10 ML (ANESTHESIA) SYR ONE (10:22)
[2020-08-28 10:45] VITALS: BP 143/87
[2020-08-28] MEDS ORDERED: LACTATED RINGERS 1,000 ML IV STA (10:45)
[2020-08-28] MEDS ORDERED: HURRICAINE EXT TUBE (BENZOCAINE) XX PRN (10:45)
--- NOTE | 2020-08-28 10:56 | Anesthesia-General Post-Op ---
MAC Patient Condition Mental Status/LOC: Same as Preop Cardiovascular: Satisfactory Nausea/Vomiting: Absent Respiratory: Satisfactory Pain: Controlled Complications: Absent Post Op Complications Complications None Follow Up Care/Instructions Patient Instructions None needed. Anesthesiology Discharge Order Discharge Order Patient is doing well, no complaints, stable vital signs, no apparent adverse anesthesia problems. No complications reported per nursing. EBONY GREEN CRNA Aug 28, 2020 10:56
[2020-08-28 12:00] VITALS: BP 137/78
[2020-08-28] MEDS ORDERED: PROMETHAZINE INJ 25 MG/ML (PHENERGAN) AMP IM PRN (13:15)
[2020-08-28] MEDS ORDERED: PANTOPRAZOLE 40 MG (PROTONIX) TAB PO ONE (13:15)
[2020-08-28] MEDS: ACETAMINOPHEN 325 MG TABLET PO PRN ×2 (14:03→20:33)
[2020-08-28 16:00] VITALS: BP 140/72
[2020-08-28] MEDS: SUCRALFATE 1 GM (CARAFATE) TAB PO SCH ×2 (17:53→20:27)
[2020-08-28 19:34] VITALS: BP 139/82
[2020-08-28] MEDS: meTOprolol TARTRATE 50 MG (LOPRESSOR) TAB PO SCH (20:27)
[2020-08-28] MEDS: hydrALAZINE (APRESOLINE) 25 MG TAB PO SCH (20:28)
--- NOTE | 2020-08-28 22:14 | Progress Note-Post Operative ---
Post-Operative Progess Note Surgeon (s)/Television Service Engineer (s) Surgeon LOLY BHATTI DO Television Service Engineer: [place] Arevalo Pre-Operative Diagnosis nausea vomiting epigastric abdominal pain Post-Operative Diagnosis Gastritis Esophagitis Int hemorrhoids Procedure & Operative Findings Date of Procedure 08/28/20 Procedure Performed/Findings EGD with bx Colonoscopy Anesthesia Type IV sedation by BRASS CHASER Estimated Blood Loss Estimated blood loss (mL): scant Specimens/Packing Specimens Removed antral bx body of stomach bx GE jxn bx LOLY BHATTI DO Aug 28, 2020 22:14
[2020-08-29] VITALS: BP 133/70
[2020-08-29] MEDS: ACETAMINOPHEN 325 MG TABLET PO PRN (03:43)
[2020-08-29 04:00] VITALS: BP 142/69
[2020-08-29] MEDS: SUCRALFATE 1 GM (CARAFATE) TAB PO SCH ×2 (05:42→10:18)
[2020-08-29] MEDS: ONDANSETRON 4 MG/2 ML (SDV) Z0FRAN IV PRN ×2 (05:47→10:11)
[2020-08-29 06:25] LABS: BASOPHILS % (AUTO) 1 % (0-10); EOSINOPHILS # (AUTO) 0.1 10^3/uL (0.0-0.3); EOSINOPHILS % (AUTO) 1 % (0-10); HEMATOCRIT 39 % (35-52); HEMOGLOBIN 11.7 g/dL (11.5-16.0); LYMPHOCYTES # (AUTO) 2.3 10^3/uL (1.0-4.0); LYMPHOCYTES % (AUTO) 44 % (12-44); MEAN CORPUSCULAR HEMOGLOBIN 27 pg (25-34); MEAN CORPUSCULAR HGB CONC 30 g/dL (32-36); MEAN CORPUSCULAR VOLUME 88 fL (80-99); MEAN PLATELET VOLUME 9.6 fL (9.0-12.2); MONOCYTES # (AUTO) 0.6 10^3/uL (0.0-1.0); MONOCYTES % (AUTO) 12 % (0-12); NEUTROPHILS # (AUTO) 2.1 10^3/uL (1.8-7.8); NEUTROPHILS % (AUTO) 42 % (42-75); PLATELET COUNT 316 10^3/uL (130-400); WHITE BLOOD COUNT 5.1 10^3/uL (4.3-11.0)
[2020-08-29 06:44] LABS: ALBUMIN 3.7 GM/DL (3.2-4.5); CHLORIDE 103 MMOL/L (98-107); POTASSIUM 3.3 MMOL/L (3.6-5.0); SODIUM 138 MMOL/L (135-145)
[2020-08-29 06:45] LABS: CALCIUM 8.8 MG/DL (8.5-10.1)
[2020-08-29 06:46] LABS: GLUCOSE 97 MG/DL (70-105); TOTAL PROTEIN 6.3 GM/DL (6.4-8.2)
[2020-08-29 06:47] LABS: CARBON DIOXIDE 26 MMOL/L (21-32)
[2020-08-29 06:48] LABS: BILIRUBIN,TOTAL 0.5 MG/DL (0.1-1.0)
[2020-08-29 06:50] LABS: ALKALINE PHOSPHATASE 56 U/L (40-136); CREATININE SERUM 0.68 MG/DL (0.60-1.30); GFR ESTIMATED > 60
[2020-08-29 06:51] LABS: BUN/CREATININE RATIO 10
[2020-08-29 06:53] LABS: ALANINE AMINOTRANSFERASE 33 U/L (0-55)
[2020-08-29 08:00] VITALS: BP 132/76
[2020-08-29] MEDS ORDERED: POTASSIUM CL 10MEQ/50ML IVPB 50 ML IV SCH (08:30)
--- NOTE | 2020-08-29 08:59 | OPERATIVE REPORT ---
DATE OF SERVICE: PREOPERATIVE DIAGNOSES: Nausea, vomiting, epigastric abdominal pain as well as diffuse abdominal pain. POSTOPERATIVE DIAGNOSES: Gastritis, esophagitis, internal hemorrhoids. PROCEDURES: 1. EGD with biopsy. 2. Colonoscopy. SURGEON: Mohan Villa DO LIVESTOCK RANCHER: Chuy Chery, MS3. ANESTHESIA: IV sedation by the CERTIFIED APPLIANCE SERVICE TECHNICIAN. SPECIMEN: Biopsy of the antrum, biopsy of body of stomach, biopsy of the GE junction. BLOOD LOSS: Scant. FLUIDS: Per anesthesia. POSTOPERATIVE CONDITION: Stable. INDICATION FOR PROCEDURE: The patient is a 44-year-old female, who has been having abdominal pain, some GERD symptoms, pain not going away, nausea, vomiting and she had look like colitis on CAT scan. FINDINGS: The patient had some gastritis, esophagitis, internal hemorrhoids, did not see any inflammation, ulcerations or any other obvious acute pathology in the colon. PROCEDURE NOTE: After informed consent was obtained, the patient was brought to the endoscopy suite, placed in bed in left lateral decubitus position. She was administered IV sedation by the CERTIFIED APPLIANCE SERVICE TECHNICIAN who then monitored her vitals the entire time, heart rate, blood pressure and pulse ox and the scope was inserted, started with the EGD, placing scope down the mouth through the esophagus and into the stomach, noted some esophagitis on the way down, took a picture, pushed into the stomach towards the antrum and into the duodenum. Duodenum looked good, took a picture. Pulled back, took a picture of the antrum, did a biopsy. I retroflexed the scope, did a biopsy of body of stomach and then took a picture and then pulled the scope into the GE junction, did 2 biopsy of the GE junction, pushed the scope back into the stomach, suctioned all the air out and then pulled the scope up the esophagus and out the mouth. Switched gloves, switched cameras, went down below, started the colonoscopy, pushed in. There was some large retained fecal material and some fecal fluid, but able to push all the way to the ascending colon and cecum, took a picture of the cecum and noted the ileocecal valve and then slowly withdrew the scope insufflating the circumferential alonzo looking the ascending colon, took a picture, took a picture of the hepatic flexure as well as the transverse colon down to the splenic flexure, into the descending colon, sigmoid and then into the rectum, took pictures throughout here. Again, did not see any ulcers, any inflammation, no thickening, no signs of acute disease down into the rectum and then pulled the scope out, took pictures of the hemorrhoids on the way out. She had 2 or 3 large fecal balls, able to get past this. Removed the scope. The patient tolerated the procedure, recovered in the endoscopy suite. Job ID: [id number] DocumentID: [id number] Dictated Date: 08/28/2020 22:14:29 Chemistry Faculty Member Date: 08/29/2020 05:23:53 Dictated By: MOHAN VILLA DO
[2020-08-29] MEDS ORDERED: PANTOPRAZOLE 40 MG (PROTONIX) TAB PO SCH (09:00)
[2020-08-29] MEDS ORDERED: SUCR1TAB PO (09:33)
[2020-08-29] MEDS ORDERED: PANT40TA52 PO (09:33)
--- NOTE | 2020-08-29 09:37 | Discharge Summary ---
Discharge [facility] Discharge Medications New, Converted or Re-Newed RX: RX Given to Pt/Family New Medications: Pantoprazole Sodium (Pantoprazole Sodium) 40 Mg Tablet.dr 40 MG PO DAILY, #30 TAB 0 Refills Sucralfate (Sucralfate) 1 Gm Tablet 1 GM PO ACHS, #120 TAB 0 Refills Continued Medications: Amlodipine Besylate (Amlodipine Besylate) 10 Mg Tablet 10 MG PO DAILY, TAB Diphenhydramine HCl (Benadryl) 25 Mg Capsule 25-50 MG PO Q6H PRN for ALLERGY SYMPTOMS, CAP Hyoscyamine Sulfate (Hyoscyamine Sulfate) 0.125 Mg Tab.subl 0.125 MG SL TID PRN for STOMACH SPASMS, TAB Ondansetron (Ondansetron Odt) 4 Mg Tab.rapdis 4 MG PO Q4H PRN for NAUSEA/VOMITING-1ST LINE, TAB Propranolol HCl (Propranolol HCl) 80 Mg Tablet 80 MG PO TID, TAB Sumatriptan Succinate (Sumatriptan Succinate) 100 Mg Tablet 100 MG PO DAILY PRN for MIGRAINE MDD 200, TAB Tizanidine HCl (Tizanidine HCl) 4 Mg Tablet 4 MG PO TID PRN for MUSCLE SPASMS, TAB Patient Instructions Goal/Follow Up Appt: Follow up with Nicolás Veliz on 09/06 at 3 pm. Return to The Hospital For: Inability to keep down liquids Activity & Diet Discharge Diet: Eat Small Frequent Meals Activity as Tolerated: Yes KRAIG JIMENEZ MD Aug 29, 2020 09:37
[2020-08-29] MEDS ORDERED: KCL 20 MEQ TAB (K-DUR) PO NR (09:45)
[2020-08-29] MEDS: hydrALAZINE (APRESOLINE) 25 MG TAB PO SCH (10:10)
[2020-08-29] MEDS: meTOprolol TARTRATE 50 MG (LOPRESSOR) TAB PO SCH (10:10)
[2020-08-29] MEDS: ENOXAPARIN 40 MG/0.4 ML (LOVENOX) SYR SC SCH (10:11)
[2020-08-29] MEDS: amLODIPine 5 MG (NORVASC) TAB PO SCH (10:11)
--- NOTE | 2020-08-29 10:35 | Discharge Summary ---
Discharge Summary Hospital Course Problems Reviewed?: No Hospital Course Date of Admission: Aug 24, 2020 at 16:14 Admission Diagnosis : Intractable nausea and vomiting Family Physician/Provider[facility] Date of Discharge: 08/29/20 Discharge Diagnosis: Gastritis Esophagitis Internal hemorrhoids Hospital Course: Pt admitted and treated with IVF and anti-emetics. Had EGD and colo on 08/28 that showed gastritis, esophagitis and internal hemorrhoids and was started on pantoprazole and carfate. She was tolerating intake with persistent nausea but no vomiting at d/c. She reported she had ondansetron waiting at the pharmacy. Labs and Pending Lab Test: Laboratory Tests 08/29/20 05:35: White Blood Count 5.1, Red Blood Count 4.37, Hemoglobin 11.7, Hematocrit 39, Mean Corpuscular Volume 88, Mean Corpuscular Hemoglobin 27, Mean Corpuscular Hemoglobin Concent 30L, Red Cell Distribution Width 16.7H, Platelet Count 316, Mean Platelet Volume 9.6, Immature Granulocyte % (Auto) 0, Neutrophils (%) (Auto) 42, Lymphocytes (%) (Auto) 44, Monocytes (%) (Auto) 12, Eosinophils (%) (Auto) 1, Basophils (%) (Auto) 1, Neutrophils # (Auto) 2.1, Lymphocytes # (Auto) 2.3, Monocytes # (Auto) 0.6, Eosinophils # (Auto) 0.1, Basophils # (Auto) 0.0, Immature Granulocyte # (Auto) 0.0, Sodium Level 138, Potassium Level 3.3L, Chloride Level 103, Carbon Dioxide Level 26, Anion Gap 9, Blood Urea Nitrogen 7, Creatinine 0.68, Estimat Glomerular Filtration Rate > 60, BUN/Creatinine Ratio 10, Glucose Level 97, Calcium Level 8.8, Corrected Calcium 9.0, Total Bilirubin 0.5, Aspartate Amino Transf (AST/SGOT) 23, Alanine Aminotransferase (ALT/SGPT) 33, Alkaline Phosphatase 56, Total Protein 6.3L, Albumin 3.7 Microbiology 08/27/20 MRSA Screen - Final, Complete MRSA not isolated Home Meds Active Sucralfate 1 Gm Tablet 1 Gm PO ACHS Pantoprazole Sodium 40 Mg Tablet.dr 40 Mg PO DAILY Reported Benadryl (Diphenhydramine HCl) 25 Mg Capsule 25-50 Mg PO Q6H PRN Ondansetron Odt (Ondansetron) 4 Mg Tab.rapdis 4 Mg PO Q4H PRN Hyoscyamine Sulfate 0.125 Mg Tab.subl 0.125 Mg SL TID PRN Sumatriptan Succinate 100 Mg Tablet 100 Mg PO DAILY PRN MDD 200 Amlodipine Besylate 10 Mg Tablet 10 Mg PO DAILY Tizanidine HCl 4 Mg Tablet 4 Mg PO TID PRN Propranolol HCl 80 Mg Tablet 80 Mg PO TID Assessment/Pt DC Instructions Follow up with Nicolás Veliz as scheduled. Discharge Diet: Eat Small Frequent Meals Activity as Tolerated: Yes Discharge Physical Examination Allergies: Coded Allergies: morphine (Verified Allergy, Unknown, CAUSES "REBOUND HEADACHES", 08/29/20) PT HAS RECEIVED LORTAB & OXYCODONE IN THE PAST baclofen (Verified Adverse Reaction, Severe, 06/13/15) PATIENT UNAWARE OF REACTION BUT WAS HOSPITALIZED AFTER TAKING MEDICATION AND WAS TOLD IT WAS A REACTION DUE TO THE MEDICATION SHE TOOK. meloxicam (Verified Adverse Reaction, Severe, 06/13/15) PATIENT UNAWARE OF REACTION BUT WAS HOSPITALIZED AFTER TAKING MEDICATION AND WAS TOLD IT WAS A REACTION DUE TO THE MEDICATION SHE TOOK. NSAIDS (Non-Steroidal Anti-Inflamma (Verified Adverse Reaction, Mild, have IBS and avoid NSAIDS, 12/04/12) General Appearance: No Apparent Distress, WD/WN Respiratory: Lungs Clear, Normal Breath Sounds Cardiovascular: Regular Rate, Rhythm, No Murmur Extremity: No Pedal Edema Skin: Normal Color, Warm/Dry Neurologic/Psychiatric: Alert, Normal Mood/Affect Copy Copies To 1: VERONICA Haas BETHANY N MD Aug 29, 2020 10:35
[2020-08-29 12:21] VITALS: BP 132/76
== END 2020-08-29 12:21 | disposition home or self-care (01) | DRG 392 ==
LOC: EDUNIT# 13:14 → ER 13:16 → UNDOADMOB 16:14 → 4TH 16:14 → OBSVTOIN 08-26 12:13 → UNDODISOB 08-29 12:21
PROVIDERS: ADMIT Internal Medicine; ATTEND Family Medicine
PROC: 0DB48ZX Excision of Esophagogastric Junction, Via Natural or Artificial Opening Endoscopic, Diagnostic (ICD-10-PCS; 2020-08-28)
PROC: 0DJD8ZZ Inspection of Lower Intestinal Tract, Via Natural or Artificial Opening Endoscopic (ICD-10-PCS; 2020-08-28)
PROC: 0DB78ZX Excision of Stomach, Pylorus, Via Natural or Artificial Opening Endoscopic, Diagnostic (ICD-10-PCS; principal; 2020-08-28 10:08)
PROC: 0DB68ZX Excision of Stomach, Via Natural or Artificial Opening Endoscopic, Diagnostic (ICD-10-PCS; 2020-08-28 10:08)
DX: K29.70 Gastritis, unspecified, without bleeding (principal); K20.90 Esophagitis, unspecified without bleeding; K64.8 Other hemorrhoids; F12.20 Cannabis dependence, uncomplicated; R00.0 Tachycardia, unspecified; K59.00 Constipation, unspecified; K21.9 Gastro-esophageal reflux disease without esophagitis; K58.9 Irritable bowel syndrome, unspecified; Z20.822 Contact with and (suspected) exposure to COVID-19; G40.909 Epilepsy, unspecified, not intractable, without status epilepticus; E87.6 Hypokalemia; F41.9 Anxiety disorder, unspecified; F32.9 Major depressive disorder, single episode, unspecified; M54.9 Dorsalgia, unspecified; I10 Essential (primary) hypertension; J45.909 Unspecified asthma, uncomplicated; Z79.82 Long term (current) use of aspirin; Z88.6 Allergy status to analgesic agent; Z88.1 Allergy status to other antibiotic agents
CPT/HCPCS: 36415; 74177; 80053; 80306; 80320; 81000; 83605; 83690; 85007; 85025; 85027; 86141; 87081; 87635; 88305; 88312; 93005; 94760; 96374; 96375; G0378

== ENCOUNTER 2020-09-13 08:11 | Emergency (ER) | payer SELFPAY ==
[~2020-09-13] VITALS: Ht 167.7 cm; Wt 92.2 kg
[~2020-09-13 08:11] MED LIST changes: +DIPH25CA79 PO; +HYOS-19 SL; +SUMA100T3 PO
[2020-09-13] MEDS ORDERED: LACTATED RINGERS 1,000 ML IV ONE (08:30)
[2020-09-13] MEDS ORDERED: PROMETHAZINE INJ 25 MG/ML (PHENERGAN) AMP IVP ONE (08:30)
[2020-09-13] MEDS ORDERED: FAMOTIDINE 20MG/2ML IV (PEPCID) IVP ONE (08:30)
[2020-09-13 08:36] LABS: BASOPHILS % (AUTO) 0 % (0-10); EOSINOPHILS % (AUTO) 0 % (0-10); HEMATOCRIT 46 % (35-52); HEMOGLOBIN 14.2 g/dL (11.5-16.0); LYMPHOCYTES # (AUTO) 2.2 10^3/uL (1.0-4.0); LYMPHOCYTES % (AUTO) 22 % (12-44); MEAN CORPUSCULAR HEMOGLOBIN 27 pg (25-34); MEAN CORPUSCULAR HGB CONC 31 g/dL (32-36); MEAN CORPUSCULAR VOLUME 88 fL (80-99); MONOCYTES # (AUTO) 0.6 10^3/uL (0.0-1.0); MONOCYTES % (AUTO) 6 % (0-12); NEUTROPHILS % (AUTO) 71 % (42-75); PLATELET COUNT 487 10^3/uL (130-400); WHITE BLOOD COUNT 9.9 10^3/uL (4.3-11.0)
--- NOTE | 2020-09-13 08:55 | ED Abdominal Pain ---
General Chief Complaint: Abdominal/GI Problems Stated Complaint: VOMITTING Nursing Triage Note: AMB TO ROOM FROM [facility] HAS HX PANCREATITIS HAS BEEN VOMITING THAT ZOFRAN HAS NOT HELPED. VOMITING ON ADMIT. Sepsis Screen: No Definite Risk Source of Information: Patient Exam Limitations: No Limitations History of Present Illness Date Seen by Provider: Sep 13, 2020 Time Seen by Provider: 08:16 Initial Comments This 44-year-old woman with history of pancreatitis presents to the emergency room with complaints of nausea and vomiting and generalized upper abdominal pain. She presented to [facility] this morning and received Zofran 8 mg sublingually. This did not resolve her symptoms. She was directed to the emergency room. She reports her symptoms seem consistent with her prior episodes of pancreatitis. Patient reports that she accidentally ate some gummy bears containing THC over the weekend (about 3 days ago). Allergies and Home Medications Allergies Coded Allergies: morphine (Verified Allergy, Unknown, CAUSES "REBOUND HEADACHES", 08/29/20) PT HAS RECEIVED LORTAB & OXYCODONE IN THE PAST baclofen (Verified Adverse Reaction, Severe, 06/13/15) PATIENT UNAWARE OF REACTION BUT WAS HOSPITALIZED AFTER TAKING MEDICATION AND WAS TOLD IT WAS A REACTION DUE TO THE MEDICATION SHE TOOK. meloxicam (Verified Adverse Reaction, Severe, 06/13/15) PATIENT UNAWARE OF REACTION BUT WAS HOSPITALIZED AFTER TAKING MEDICATION AND WAS TOLD IT WAS A REACTION DUE TO THE MEDICATION SHE TOOK. NSAIDS (Non-Steroidal Anti-Inflamma (Verified Adverse Reaction, Mild, have IBS and avoid NSAIDS, 12/04/12) Home Medications Amlodipine Besylate 10 Mg Tablet, 10 MG PO DAILY, (Reported) Diphenhydramine HCl 25 Mg Capsule, 25-50 MG PO Q6H PRN for ALLERGY SYMPTOMS, (Reported) Hyoscyamine Sulfate 0.125 Mg Tab.subl, 0.125 MG SL TID PRN for STOMACH SPASMS, (Reported) Ondansetron 4 Mg Tab.rapdis, 4 MG PO Q4H PRN for NAUSEA/VOMITING-1ST LINE, (Reported) Pantoprazole Sodium 40 Mg Tablet.dr, 40 MG PO DAILY Prescribed by: KRAIG JIMENEZ on 08/29/20932 Propranolol HCl 80 Mg Tablet, 80 MG PO TID, (Reported) Sucralfate 1 Gm Tablet, 1 GM PO ACHS Prescribed by: KRAIG JIMENEZ on 08/29/20932 Sumatriptan Succinate 100 Mg Tablet, 100 MG PO DAILY PRN for MIGRAINE, (Reported) Tizanidine HCl 4 Mg Tablet, 4 MG PO TID PRN for MUSCLE SPASMS, (Reported) Patient Home Medication List Home Medication List Reviewed: Yes Review of Systems Review of Systems Constitutional: no symptoms reported EENTM: No Symptoms Reported Respiratory: No Symptoms Reported Cardiovascular: No Symptoms Reported Gastrointestinal: See HPI Genitourinary: No Symptoms Reported Musculoskeletal: no symptoms reported Skin: no symptoms reported Psychiatric/Neurological: No Symptoms Reported Endocrine: No Symptoms Reported Hematologic/Lymphatic: No Symptoms Reported Past Jnieysu-Rapcdo-Fozfqq Hx Past Med/Social Hx: Reviewed Nursing Past Med/Soc Hx Patient Social History Drug of Choice: cannabis 2nd Hand Smoke Exposure: No Recent Infectious Disease Expo: No Recent Hopitalizations: No Immunizations Up To Date Tetanus Booster (TDap): Unknown PED Vaccines UTD: No Date of Pneumonia Vaccine: Mar 03, 2014 Date of Influenza Vaccine: Mar 03, 2015 Seasonal Allergies Seasonal Allergies: No Past Medical History Surgeries: Yes Bladder Surgery, Gallbladder, 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, Oophorectomy, Tubal Ligation Respiratory: Yes Asthma Currently Using CPAP: No Currently Using BIPAP: No Cardiac: Yes Hypertension, Syncope Neurological: Yes (Tremor) Seizure Disorder 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 Disorders: Yes (HYST 2005--NO PHYSICIAN DOCUMENTATION OF ANY KIND OF CANCER) 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 Disorders: Denies 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 Sexually Transmitted Disease: Yes (HPV) HIV/AIDS: No Genitourinary: Yes Bladder Infection Gastrointestinal: Yes Gastroesophageal Reflux, Irritable Bowel Musculoskeletal: Yes Chronic Back Pain Endocrine: No HEENT: No Loss of Vision: Denies Cancer: Yes Cervical, Colon Psychosocial: Yes Anxiety, Depression Integumentary: No Blood Disorders: No Adverse Reaction/Blood Tranf: No Family Medical History Diabetes mellitus 19 FATHER FHx: brain tumor 19 MOTHER HPV infection G8 SISTER No Family History of: AIDS Abdominal aortic aneurysm Fieldton's disease Alcoholism Alzheimer's disease Aphasia Arthritis Asthma Cancer of mouth Cardiovascular disease Cataracts Colon cancer Completed stroke Congenital disease Congenital heart disease Coronary thrombosis Cystic fibrosis Deafness or hearing loss Dementia Drug abuse Dysphasia Fibrocystic disease of breast Gastroenteritis Glaucoma Headache disorder Hypercholesterolemia Hypertension Infertility Kidney disease Myocardial infarction Neoplasm Not obtainable due to adoption Osteoporosis Parkinson's disease Prostate cancer Psychosocial problem Respiratory disorder Seizure disorder Severe allergy Thyroid disease Tuberculosis Visual disorder Heart Disease, Hypertension, Other Conditions/Hx Physical Exam Vital Signs Vital Signs - First Documented 09/13/20 09/13/20 08:15 09:09 Temp 36.1 Pulse 103 Resp 18 B/P (MAP) 133/69 (90) O2 Delivery Room Air O2 Flow Rate 2.00 Capillary Refill : Less Than 3 Seconds Height/Weight/BMI Height: 5'6.00" Weight: 203lbs. 6.4oz. 92.156463kw; 32.00 BMI Method:Stated General Appearance: WD/WN, moderate distress, obese HEENT: PERRL/EOMI, other (Oropharynx somewhat dry. 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 nml as tested, no motor/sensory deficits, alert, normal mood/affect, oriented x 3 Skin: normal color, warm/dry Progress/Results/Core Measures Results/Orders Lab Results Laboratory Tests Test 09/13/20 08:24 09/13/20 09:00 Range/Units White Blood Count 9.9 4.3-11.0 10^3/uL Red Blood Count 5.18 H 3.80-5.11 10^6/uL Hemoglobin 14.2 11.5-16.0 g/dL Hematocrit 46 35-52 % Mean Corpuscular Volume 88 80-99 fL Mean Corpuscular Hemoglobin 27 25-34 pg Mean Corpuscular Hemoglobin Concent 31 L 32-36 g/dL Red Cell Distribution Width 16.1 H 10.0-14.5 % Platelet Count 487 H 130-400 10^3/uL Mean Platelet Volume 9.0 9.0-12.2 fL Immature Granulocyte % (Auto) 1 % Neutrophils (%) (Auto) 71 42-75 % Lymphocytes (%) (Auto) 22 12-44 % Monocytes (%) (Auto) 6 0-12 % Eosinophils (%) (Auto) 0 0-10 % Basophils (%) (Auto) 0 0-10 % Neutrophils # (Auto) 7.0 1.8-7.8 10^3/uL Lymphocytes # (Auto) 2.2 1.0-4.0 10^3/uL Monocytes # (Auto) 0.6 0.0-1.0 10^3/uL Eosinophils # (Auto) 0.0 0.0-0.3 10^3/uL Basophils # (Auto) 0.0 0.0-0.1 10^3/uL Immature Granulocyte # (Auto) 0.1 0.0-0.1 10^3/uL Sodium Level 145 135-145 MMOL/L Potassium Level 3.4 L 3.6-5.0 MMOL/L Chloride Level 103 98-107 MMOL/L Carbon Dioxide Level 24 21-32 MMOL/L Anion Gap 18 H 5-14 MMOL/L Blood Urea Nitrogen 7 7-18 MG/DL Creatinine 0.94 0.60-1.30 MG/DL Estimat Glomerular Filtration Rate > 60 BUN/Creatinine Ratio 7 Glucose Level 135 H 70-105 MG/DL Calcium Level 10.2 H 8.5-10.1 MG/DL Corrected Calcium 8.5-10.1 MG/DL Magnesium Level 1.7 1.6-2.4 MG/DL Total Bilirubin 0.3 0.1-1.0 MG/DL Aspartate Amino Transf (AST/SGOT) 17 5-34 U/L Alanine Aminotransferase (ALT/SGPT) 31 0-55 U/L Alkaline Phosphatase 80 40-136 U/L C-Reactive Protein High Sensitivity 0.33 0.00-0.50 MG/DL Total Protein 8.0 6.4-8.2 GM/DL Albumin 4.6 H 3.2-4.5 GM/DL Lipase 52 8-78 U/L My Orders Orders - MARY VITAL MD Cbc With Automated Diff (09/13/20 08:18) Comprehensive Metabolic Panel (09/13/20 08:18) Hs C Reactive Protein (09/13/20 08:18) Lipase (09/13/20 08:18) Magnesium (09/13/20 08:18) Ua Culture If Indicated (09/13/20 08:18) Ed Iv/Invasive Line Start (09/13/20 08:18) Lactated Ringers (Lr 1000 Ml Iv Solution (09/13/20 08:30) Promethazine Injection (Phenergan Injec (09/13/20 08:30) Famotidine Injection (Pepcid Injection) (09/13/20 08:30) Fentanyl Inj (Sublimaze Injection) (09/13/20 09:00) Abdomen, Flat & Upright/Decub (09/13/20 09:39) Scopolamine Patch (Transderm-Scop Patch) (09/13/20 10:15) Diphenhydramine Injection (Benadryl Inje (09/13/20 11:00) Haloperidol Injection (Haldol Injectio (09/13/20 11:00) Medications Given in ED Current Medications Medications Dose Ordered Sig/Judi Route Start Time Stop Time Status Last Admin Dose Admin Diphenhydramine HCl 25 mg ONCE ONCE IVP 09/13/20 11:00 09/13/20 11:01 DC 09/13/20 10:55 25 MG Famotidine 20 mg ONCE ONCE IVP 09/13/20 08:30 09/13/20 08:31 DC 09/13/20 08:38 20 MG Fentanyl Citrate 75 mcg ONCE ONCE IVP 09/13/20 09:00 09/13/20 09:01 DC 09/13/20 08:52 75 MCG Haloperidol Lactate 5 mg ONCE ONCE IV 09/13/20 11:00 09/13/20 11:01 DC 09/13/20 10:57 5 MG Lactated Ringer's 1,000 ml @ 0 mls/hr Q0M ONCE IV 09/13/20 08:30 09/13/20 08:31 DC 09/13/20 08:37 1,000 MLS/HR Promethazine HCl 25 mg ONCE ONCE IVP 09/13/20 08:30 09/13/20 08:31 DC 09/13/20 08:37 25 MG Scopolamine 1.5 mg ONCE ONCE TD 09/13/20 10:15 09/13/20 10:16 DC 09/13/20 10:18 1.5 MG Vital Signs/I&O 09/13/20 09/13/20 08:15 09:09 Temp 36.1 Pulse 103 Resp 18 B/P (MAP) 133/69 (90) O2 Delivery Room Air Nasal Cannula O2 Flow Rate 2.00 Blood Pressure Mean: 90 Progress Progress Note #1: Time: 08:51 Progress Note Patient received his Zofran at the clinic and not long before arriving to the ER. She is presently receiving Pepcid, fentanyl, Phenergan, and IV fluids. Disposition will be determined by her symptoms after treatment and her lab work- up. Progress Note #2: Time: 12:15 Progress Note Initial therapies did not resolve her nausea and vomiting. KUB and upright x- rays were unremarkable. A scopolamine patch was applied but she continued to have nausea and retching. She was eventually treated with Haldol and Benadryl. This resolved her nausea and vomiting. I suspect that her nausea and vomiting was again caused by the THC she consumed a few days earlier. Diagnostic Imaging Diagonstic Imaging: Xray Plain Films/CT/US/NM/MRI: chest Comments Chest x-ray viewed by me and report reviewed. See report below: NAME: DORIAN BROWN [facility] REC#: [id number] PT STATUS: REG ER : 1975 PHYSICIAN: MARY VITAL MD ADMIT DATE: 09/13/20/ER Signed Date of Exam:09/13/20 ABDOMEN, FLAT & UPRIGHT/DECUB EXAMINATION: Abdomen supine and erect at 9:55 a.m. INDICATION: Abdominal pain. Supine and erect views were obtained. There is some gas in both large and small bowel. The bowel gas pattern is nonspecific and similar to the prior abdomen exam of 03/02/2019. There is no evidence for bowel obstruction nor is there any evidence for pneumoperitoneum. There is no mass, organomegaly or pathological calcification evident. Surgical clips are again seen in the right upper quadrant and there are phleboliths in the pelvis. The osseous structures are intact. IMPRESSION: The bowel gas pattern is nonspecific. There is no acute abnormality identified. Dictated by: Dictated on workstation # [id number] Dict: 09/13/20 1002 Trans: 09/13/20 1042 [facility] [id number] Interpreted by: RICCI EDWARDS MD Electronically signed by: RICCI EDWARDS MD 09/13/20 1042 Departure Impression Primary Impression: Nausea & vomiting Qualified Codes: R11.2 - Nausea with vomiting, unspecified Additional Impressions: Upper abdominal pain Tetrahydrocannabinol (THC) use disorder, mild, abuse Disposition: 01 HOME, SELF-CARE Condition: Improved Departure-Patient Inst. Decision time for Depature: 12:03 [facility]Family) Primary Care Physician Patient Instructions: Severe Abdominal Pain, Adult (DC) Add. Discharge Instructions: Adhere to a clear liquid diet for the remainder of the day. Drink plenty of clear liquids. Avoid use of any THC containing products or marijuana as they have a trigger e pisodes of vomiting and abdominal pain. Use your Zofran as previously prescribed for nausea and vomiting. Call with questions or concerns. Return to the ER if you have worsening symptoms. All discharge instructions reviewed with patient and/or family. Voiced understanding. MARY VITAL MD Sep 13, 2020 08:55
[2020-09-13] MEDS ORDERED: fentaNYL INJ 100 MCG/2 ML AMP IVP ONE (09:00)
[2020-09-13 09:24] LABS: ALBUMIN 4.6 GM/DL (3.2-4.5); CHLORIDE 103 MMOL/L (98-107); POTASSIUM 3.4 MMOL/L (3.6-5.0); SODIUM 145 MMOL/L (135-145)
[2020-09-13 09:25] LABS: CALCIUM 10.2 MG/DL (8.5-10.1)
[2020-09-13 09:26] LABS: GLUCOSE 135 MG/DL (70-105)
[2020-09-13 09:27] LABS: CARBON DIOXIDE 24 MMOL/L (21-32)
[2020-09-13 09:28] LABS: BILIRUBIN,TOTAL 0.3 MG/DL (0.1-1.0)
[2020-09-13 09:30] LABS: ALKALINE PHOSPHATASE 80 U/L (40-136); CREATININE SERUM 0.94 MG/DL (0.60-1.30); GFR ESTIMATED > 60
[2020-09-13 09:31] LABS: BUN/CREATININE RATIO 7
[2020-09-13 09:33] LABS: ALANINE AMINOTRANSFERASE 31 U/L (0-55); MAGNESIUM 1.7 MG/DL (1.6-2.4)
[2020-09-13 09:34] LABS: LIPASE 52 U/L (8-78)
--- NOTE | 2020-09-13 10:14 | Diagnostic Imaging Report ---
EXAMINATION: Abdomen supine and erect at 9:55 a.m. INDICATION: Abdominal pain. Supine and erect views were obtained. There is some gas in both large and small bowel. The bowel gas pattern is nonspecific and similar to the prior abdomen exam of 03/02/2019. There is no evidence for bowel obstruction nor is there any evidence for pneumoperitoneum. There is no mass, organomegaly or pathological calcification evident. Surgical clips are again seen in the right upper quadrant and there are phleboliths in the pelvis. The osseous structures are intact. IMPRESSION: The bowel gas pattern is nonspecific. There is no acute abnormality identified. Dictated by: Dictated on workstation # [id number]
[2020-09-13] MEDS ORDERED: SCOPOLAMINE 1.5 MG (TRANSDERM-SCOP) PATCH TD ONE (10:15)
[2020-09-13] MEDS ORDERED: diphenhydrAMINE 50 MG/ML INJ (BENADRYL) IVP ONE (11:00)
[2020-09-13] MEDS ORDERED: HALOPERIDOL 5 MG/ML (HALDOL) VIAL IV ONE (11:00)
[2020-09-13 12:14] VITALS: BP 182/85
[2020-09-20] MEDS ORDERED: ACHYD1T PO (13:28)
== END 2020-09-13 12:14 | disposition home or self-care (01) ==
LOC: EDUNIT# 08:11 → ER 08:13
DX: R11.2 Nausea with vomiting, unspecified (principal); R10.10 Upper abdominal pain, unspecified; F12.10 Cannabis abuse, uncomplicated; E66.9 Obesity, unspecified; J45.909 Unspecified asthma, uncomplicated; I10 Essential (primary) hypertension; K21.9 Gastro-esophageal reflux disease without esophagitis; Z88.5 Allergy status to narcotic agent; Z88.6 Allergy status to analgesic agent; Z88.8 Allergy status to other drugs, medicaments and biological substances; Z68.32 Body mass index [BMI] 32.0-32.9, adult
CPT/HCPCS: 36415; 74019; 80053; 83690; 83735; 85025; 86141; 96361; 96374; 96375

== ENCOUNTER 2020-09-15 06:08 | Emergency (ER) | payer SELFPAY ==
[~2020-09-15] VITALS: Ht 167.7 cm; Wt 92.2 kg
[2020-09-15] MEDS ORDERED: HALOPERIDOL 5 MG/ML (HALDOL) VIAL IV ONE (06:30)
[2020-09-15] MEDS ORDERED: diphenhydrAMINE 50 MG/ML INJ (BENADRYL) IVP ONE (06:30)
[2020-09-15] MEDS ORDERED: LACTATED RINGERS 1,000 ML IV ONE (06:30)
--- NOTE | 2020-09-15 06:56 | ED GI ---
General Chief Complaint: Abdominal/GI Problems Stated Complaint: VOMITING Nursing Triage Note: TO ED VIA POV AND AMBULATORY TO ROOM 5 WITH C/O VOMITING SINCE SATURDAY WHEN SHE WAS SEEN IN THIS ER. STATES ANTI NAUSEA MEDS NOT WORKING. Sepsis Screen: No Definite Risk Source of Information: Patient, Old Records Exam Limitations: No Limitations History of Present Illness Date Seen by Provider: Sep 15, 2020 Time Seen by Provider: 06:23 Initial Comments This 44-year-old woman presents to the emergency room with nausea, vomiting, diarrhea and upper abdominal pain. She was seen in this ER 2 days ago and treated. She has a history of recurrent episodes of these symptoms in some cases thought to be related to THC use. She does report accidentally consuming THC gummy bears over the weekend, about 4 days ago. During her visit 2 days ago her vomiting seemed to be refractory to treatment with Zofran, scopolamine patch and Phenergan. Eventually Haldol and Benadryl resolved her nausea and vomiting. She reports nausea vomiting returned after returning home. She continues to have upper abdominal pain. Review of chart reveals EGD was performed about 2 weeks ago. Gastritis and esophagitis were noted. The biopsy demonstrated inflammatory changes with negative H. pylori. Patient states using Zofran at home was ineffective. She denies any use of marijuana/THC since the weekend. Patient reports history of pancreatitis. Lipase was normal yesterday. Patient states she has only consumed clear liquids since yesterday. She has not attempted to eat solid food. Allergies and Home Medications Allergies Coded Allergies: morphine (Verified Allergy, Unknown, CAUSES "REBOUND HEADACHES", 08/29/20) PT HAS RECEIVED LORTAB & OXYCODONE IN THE PAST baclofen (Verified Adverse Reaction, Severe, 06/13/15) PATIENT UNAWARE OF REACTION BUT WAS HOSPITALIZED AFTER TAKING MEDICATION AND WAS TOLD IT WAS A REACTION DUE TO THE MEDICATION SHE TOOK. meloxicam (Verified Adverse Reaction, Severe, 06/13/15) PATIENT UNAWARE OF REACTION BUT WAS HOSPITALIZED AFTER TAKING MEDICATION AND WAS TOLD IT WAS A REACTION DUE TO THE MEDICATION SHE TOOK. NSAIDS (Non-Steroidal Anti-Inflamma (Verified Adverse Reaction, Mild, have IBS and avoid NSAIDS, 12/04/12) Home Medications Amlodipine Besylate 10 Mg Tablet, 10 MG PO DAILY, (Reported) Diphenhydramine HCl 25 Mg Capsule, 25-50 MG PO Q6H PRN for ALLERGY SYMPTOMS, (Reported) Hyoscyamine Sulfate 0.125 Mg Tab.subl, 0.125 MG SL TID PRN for STOMACH SPASMS, (Reported) Ondansetron 4 Mg Tab.rapdis, 4 MG PO Q4H PRN for NAUSEA/VOMITING-1ST LINE, (Reported) Pantoprazole Sodium 40 Mg Tablet.dr, 40 MG PO DAILY Prescribed by: KRAIG JIMENEZ on 08/29/20932 Propranolol HCl 80 Mg Tablet, 80 MG PO TID, (Reported) Sucralfate 1 Gm Tablet, 1 GM PO ACHS Prescribed by: KRAIG JIMENEZ on 08/29/20932 Sumatriptan Succinate 100 Mg Tablet, 100 MG PO DAILY PRN for MIGRAINE, (Reported) Tizanidine HCl 4 Mg Tablet, 4 MG PO TID PRN for MUSCLE SPASMS, (Reported) Patient Home Medication List Home Medication List Reviewed: Yes Review of Systems Review of Systems Constitutional: no symptoms reported EENTM: No Symptoms Reported Respiratory: No Symptoms Reported Cardiovascular: No Symptoms Reported Gastrointestinal: See HPI Genitourinary: No Symptoms Reported Musculoskeletal: no symptoms reported Skin: no symptoms reported Psychiatric/Neurological: No Symptoms Reported Endocrine: No Symptoms Reported Hematologic/Lymphatic: No Symptoms Reported Past Zevdjds-Sytfvz-Xhmhxu Hx Past Med/Social Hx: Reviewed Nursing Past Med/Soc Hx, Reviewed and Corrections made Patient Social History Alcohol Use: Denies Use Drug of Choice: MARIJUANA 2nd Hand Smoke Exposure: No Recent Infectious Disease Expo: No Recent Hopitalizations: No Immunizations Up To Date Tetanus Booster (TDap): Unknown PED Vaccines UTD: No Date of Pneumonia Vaccine: Mar 03, 2014 Date of Influenza Vaccine: Mar 03, 2015 Seasonal Allergies Seasonal Allergies: No Past Medical History Surgeries: Yes Bladder Surgery, Gallbladder, 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, Oophorectomy, Tubal Ligation Respiratory: Yes Asthma Currently Using CPAP: No Currently Using BIPAP: No Cardiac: Yes Hypertension, Syncope Neurological: Yes (Tremor) Seizure Disorder 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 Disorders: Yes (HYST 2005--NO PHYSICIAN DOCUMENTATION OF ANY KIND OF CANCER) 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 Sexually Transmitted Disease: Yes (HPV) HIV/AIDS: No Genitourinary: Yes Bladder Infection Gastrointestinal: Yes (Gastritis, esophagitis, recurrent nausea and vomiting) Gastroesophageal Reflux, Pancreatitis, Irritable Bowel Musculoskeletal: Yes Chronic Back Pain Endocrine: No HEENT: No Loss of Vision: Denies Cancer: Yes Cervical, Colon Psychosocial: Yes Anxiety, Depression Integumentary: No Blood Disorders: No Adverse Reaction/Blood Tranf: No Family Medical History Diabetes mellitus 19 FATHER FHx: brain tumor 19 MOTHER HPV infection G8 SISTER No Family History of: AIDS Abdominal aortic aneurysm [place]'s disease Alcoholism Alzheimer's disease Aphasia Arthritis Asthma Cancer of mouth Cardiovascular disease Cataracts Colon cancer Completed stroke Congenital disease Congenital heart disease Coronary thrombosis Cystic fibrosis Deafness or hearing loss Dementia Drug abuse Dysphasia Fibrocystic disease of breast Gastroenteritis Glaucoma Headache disorder Hypercholesterolemia Hypertension Infertility Kidney disease Myocardial infarction Neoplasm Not obtainable due to adoption Osteoporosis Parkinson's disease Prostate cancer Psychosocial problem Respiratory disorder Seizure disorder Severe allergy Thyroid disease Tuberculosis Visual disorder Heart Disease, Hypertension, Other Conditions/Hx Physical Exam Vital Signs Vital Signs - First Documented 09/15/20 09/15/20 06:24 07:36 Temp 36.2 Pulse 86 Resp 16 B/P (MAP) 155/97 (116) Pulse Ox 95 O2 Delivery Room Air Capillary Refill : Less Than 3 Seconds Height/Weight/BMI Height: 5'6.00" Weight: 203lbs. 6.4oz. 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, no motor/sensory deficits, alert, normal mood/affect, oriented x 3 Skin: normal color, warm/dry Progress/Results/Core Measures Results/Orders Lab Results Laboratory Tests Test 09/15/20 06:45 Range/Units Sodium Level 139 135-145 MMOL/L Potassium Level 5.3 H 3.6-5.0 MMOL/L Chloride Level 95 L 98-107 MMOL/L Carbon Dioxide Level 25 21-32 MMOL/L Anion Gap 19 H 5-14 MMOL/L Blood Urea Nitrogen 13 7-18 MG/DL Creatinine 0.92 0.60-1.30 MG/DL Estimat Glomerular Filtration Rate > 60 BUN/Creatinine Ratio 14 Glucose Level 137 H 70-105 MG/DL Calcium Level 9.7 8.5-10.1 MG/DL Corrected Calcium 9.3 8.5-10.1 MG/DL Magnesium Level 2.1 1.6-2.4 MG/DL Total Bilirubin 0.5 0.1-1.0 MG/DL Aspartate Amino Transf (AST/SGOT) 123 H 5-34 U/L Alanine Aminotransferase (ALT/SGPT) 116 H 0-55 U/L Alkaline Phosphatase 81 40-136 U/L C-Reactive Protein High Sensitivity 0.27 0.00-0.50 MG/DL Total Protein 8.9 H 6.4-8.2 GM/DL Albumin 4.5 3.2-4.5 GM/DL Lipase 45 8-78 U/L My Orders Orders - MARY VITAL MD Comprehensive Metabolic Panel (09/15/20 06:23) Lipase (09/15/20 06:23) Magnesium (09/15/20 06:23) Ed Iv/Invasive Line Start (09/15/20 06:23) Lactated Ringers (Lr 1000 Ml Iv Solution (09/15/20 06:30) Haloperidol Injection (Haldol Injectio (09/15/20 06:30) Diphenhydramine Injection (Benadryl Inje (09/15/20 06:30) Hs C Reactive Protein (09/15/20 06:53) Pantoprazole Injection (Protonix Injecti (09/15/20 07:00) Famotidine Injection (Pepcid Injection) (09/15/20 07:00) Lidocaine 2% Viscous 15 Ml (Xylocaine Vi (09/15/20 08:00) Antacid Suspension (Mylanta Suspension (09/15/20 08:00) Ondansetron Injection (Zofran Injectio (09/15/20 08:00) Medications Given in ED Current Medications Medications Dose Ordered Sig/Judi Route Start Time Stop Time Status Last Admin Dose Admin Al Hydrox/Mg Hydrox/Simethicone 30 ml ONCE ONCE PO 09/15/20 08:00 09/15/20 08:01 DC 09/15/20 08:37 30 ML Famotidine 20 mg ONCE ONCE IVP 09/15/20 07:00 09/15/20 07:01 DC 09/15/20 07:06 20 MG Lidocaine HCl 15 ml ONCE ONCE PO 09/15/20 08:00 09/15/20 08:01 DC 09/15/20 08:38 15 ML Ondansetron HCl 8 mg ONCE ONCE IVP 09/15/20 08:00 09/15/20 08:01 DC 09/15/20 08:14 8 MG Pantoprazole 40 mg ONCE ONCE IV 09/15/20 07:00 09/15/20 07:01 DC 09/15/20 07:06 40 MG Vital Signs/I&O 09/15/20 09/15/20 09/15/20 06:24 07:36 09:38 Temp 36.2 Pulse 86 82 75 Resp 16 18 18 B/P (MAP) 155/97 (116) 118/65 (82) 112/75 Pulse Ox 95 98 O2 Delivery Room Air Room Air Blood Pressure Mean: 116 Progress Progress Note #1: Time: 07:02 Progress Note Patient was seen and examined. She is being treated with Haldol and Benadryl. Because of the recent EGD results, we will also treat with Pepcid and Protonix. Progress Note #2: Time: 08:02 Progress Note Patient is resting comfortably. She has had no vomiting. Nausea has improved. She still complains of abdominal pain. We will give her some Zofran and a GI cocktail. Progress Note #3: Time: 09:17 Progress Note Maggy rested comfortably throughout her ER stay. She had no vomiting. She tolerated the GI cocktail which seemed to improve her pain. I am advising that she alter the way she takes her Carafate, increasing the dosing to 4 times daily and crushing to make a slurry. She has Zofran and Phenergan at home. Vital signs and lab values would not suggest dehydration. She was not able to produce a urine specimen for us. She is taking Protonix at home. Departure Impression Primary Impression: Nausea and vomiting Qualified Codes: R11.2 - Nausea with vomiting, unspecified Additional Impression: Upper abdominal pain Disposition: HOME, SELF-CARE Condition: Improved Departure-Patient Inst. Decision time for Depature: 09:16 Referrals: [facility] (PCP/Family) Primary Care Physician Patient Instructions: Gastritis, Severe Abdominal Pain, Adult (DC) Add. Discharge Instructions: Sip clear liquids, mostly water, throughout the day today. Gradually advance your diet with small quantities of bland food starting tomorrow morning. Follow-up with Dr. Bhatti and your primary care provider soon as possible. Continue taking Protonix. Change the way you take Carafate by increasing the frequency to 4 times daily 30 minutes before meals and bedtime. Crush or d issolve the tablet in 5 to 10 mL of water to make a slurry. This will help coat your esophagus and stomach better than swallowing the tablet whole. Call with questions or concerns. Avoid the following: Eating large meals, eating close to bedtime, caffeine, carbonation, chocolate, citrus fruits and juices, tomato products, acidic foods and beverages, spicy foods, fatty or greasy foods, alcohol, tobacco, mints, NSAID medications such as ibuprofen or naproxen, or anything else you know irritate your stomach. Return to the ER if you have worsening symptoms. Avoid the use of THC or marijuana products as this will likely worsen your nilton rointestinal symptoms. All discharge instructions reviewed with patient and/or family. Voiced understanding. Copy Copies To 1: LOLY BHATTI DO Copies To 2: ANNE BYRD JOSHUA T MD Sep 15, 2020 06:56
[2020-09-15] MEDS ORDERED: PANTOPRAZOLE 40 MG (PROTONIX) VIAL IV ONE (07:00)
[2020-09-15] MEDS ORDERED: FAMOTIDINE 20MG/2ML IV (PEPCID) IVP ONE (07:00)
[2020-09-15 07:13] LABS: ALBUMIN 4.5 GM/DL (3.2-4.5); CHLORIDE 95 MMOL/L (98-107); POTASSIUM 5.3 MMOL/L (3.6-5.0); SODIUM 139 MMOL/L (135-145)
[2020-09-15 07:14] LABS: CALCIUM 9.7 MG/DL (8.5-10.1)
[2020-09-15 07:15] LABS: GLUCOSE 137 MG/DL (70-105); TOTAL PROTEIN 8.9 GM/DL (6.4-8.2)
[2020-09-15 07:16] LABS: CARBON DIOXIDE 25 MMOL/L (21-32)
[2020-09-15 07:17] LABS: BILIRUBIN,TOTAL 0.5 MG/DL (0.1-1.0)
[2020-09-15 07:19] LABS: ALKALINE PHOSPHATASE 81 U/L (40-136); CREATININE SERUM 0.92 MG/DL (0.60-1.30); GFR ESTIMATED > 60
[2020-09-15 07:20] LABS: BUN/CREATININE RATIO 14
[2020-09-15 07:22] LABS: ALANINE AMINOTRANSFERASE 116 U/L (0-55); MAGNESIUM 2.1 MG/DL (1.6-2.4)
[2020-09-15 07:23] LABS: LIPASE 45 U/L (8-78)
[2020-09-15] MEDS ORDERED: LIDOCAINE 2% VISCOUS 15 ML UDC PO ONE (08:00)
[2020-09-15] MEDS ORDERED: ONDANSETRON 4 MG/2 ML (SDV) Z0FRAN IVP ONE (08:00)
[2020-09-15] MEDS ORDERED: ANTACID SUSP 30 ML UDC (MYLANTA) PO ONE (08:00)
[2020-09-15 09:38] VITALS: BP 112/75
== END 2020-09-15 09:38 | disposition home or self-care (01) ==
LOC: EDUNIT# 06:08 → ER 06:11
DX: R11.2 Nausea with vomiting, unspecified (principal); R10.10 Upper abdominal pain, unspecified; I10 Essential (primary) hypertension; K21.9 Gastro-esophageal reflux disease without esophagitis; Z88.5 Allergy status to narcotic agent; Z88.6 Allergy status to analgesic agent; Z88.8 Allergy status to other drugs, medicaments and biological substances; Z85.41 Personal history of malignant neoplasm of cervix uteri; Z85.038 Personal history of other malignant neoplasm of large intestine; Z83.3 Family history of diabetes mellitus
CPT/HCPCS: 36415; 80053; 83690; 83735; 86141

== ENCOUNTER 2020-09-18 11:32 | Emergency (ER) | payer SELFPAY ==
[~2020-09-18] VITALS: Ht 167 cm; Wt 92.0 kg
--- NOTE | 2020-09-18 11:41 | ED GI ---
General Stated Complaint: VOMITTING Source of Information: Patient Exam Limitations: No Limitations History of Present Illness Date Seen by Provider: Sep 18, 2020 Time Seen by Provider: 11:35 Initial Comments Patient to the ER by private conveyance from home with chief complaint of intractable nausea and vomiting. Symptoms started this morning and caused her to be sent home from work. She took a 4 mg Zofran tablet which was unsuccessful. the patient is known to Dr. Gramajo and recently had EGD which was showing inflammatory changes but no H. pylori. She has a known history of cannabis hyperemesis syndrome. In the past she has been difficult to treat with Zofran, Phenergan, scopolamine and has taken Benadryl and Haldol to get her symptoms under control. Her last visit was 3 days ago. Primary care through [facility]. EGD and colonoscopy 08/28 showed gastritis, esophagitis and internal hemorrhoids. She was started on pantoprazole and Carafate. She is having some epigastric abdominal discomfort after vomiting. One loose stool yesterday. She only chews THC Gummies and she thinks the last one was about 2 weeks ago. Does not smoke THC. History of cholecystectomy, bladder sling and subsequent removal, hysterectomy, tubal ligation. Allergies and Home Medications Allergies Coded Allergies: morphine (Verified Allergy, Unknown, CAUSES "REBOUND HEADACHES", 08/29/20) PT HAS RECEIVED LORTAB & OXYCODONE IN THE PAST baclofen (Verified Adverse Reaction, Severe, 06/13/15) PATIENT UNAWARE OF REACTION BUT WAS HOSPITALIZED AFTER TAKING MEDICATION AND WAS TOLD IT WAS A REACTION DUE TO THE MEDICATION SHE TOOK. meloxicam (Verified Adverse Reaction, Severe, 06/13/15) PATIENT UNAWARE OF REACTION BUT WAS HOSPITALIZED AFTER TAKING MEDICATION AND WAS TOLD IT WAS A REACTION DUE TO THE MEDICATION SHE TOOK. NSAIDS (Non-Steroidal Anti-Inflamma (Verified Adverse Reaction, Mild, have IBS and avoid NSAIDS, 12/04/12) Home Medications Amlodipine Besylate 10 Mg Tablet, 10 MG PO DAILY, (Reported) Diphenhydramine HCl 25 Mg Capsule, 25-50 MG PO Q6H PRN for ALLERGY SYMPTOMS, (Reported) Hyoscyamine Sulfate 0.125 Mg Tab.subl, 0.125 MG SL TID PRN for STOMACH SPASMS, (Reported) Ondansetron 4 Mg Tab.rapdis, 4 MG PO Q4H PRN for NAUSEA/VOMITING-1ST LINE, (Reported) Pantoprazole Sodium 40 Mg Tablet.dr, 40 MG PO DAILY Prescribed by: KRAIG JIMENEZ on 08/29/20932 Propranolol HCl 80 Mg Tablet, 80 MG PO TID, (Reported) Sucralfate 1 Gm Tablet, 1 GM PO ACHS Prescribed by: KRAIG JIMENEZ on 08/29/20932 Sumatriptan Succinate 100 Mg Tablet, 100 MG PO DAILY PRN for MIGRAINE, (Re ported) Tizanidine HCl 4 Mg Tablet, 4 MG PO TID PRN for MUSCLE SPASMS, (Reported) Patient Home Medication List Home Medication List Reviewed: Yes Review of Systems Review of Systems Constitutional: No chills, No diaphoresis EENTM: No Blurred Vision, No Double Vision Respiratory: Denies Cough, Denies Shortness of Air Cardiovascular: Denies Chest Pain, Denies Edema Gastrointestinal: Abdominal Pain; Denies Constipated; Diarrhea, Poor Fluid Intake, Vomiting Genitourinary: Denies Burning, Denies Discharge Musculoskeletal: No back pain, No joint pain All Other Systems Reviewed Negative Unless Noted: Yes Past Afriwxj-Itcppy-[id number] Hx Patient Social History Drug of Choice: MARIJUANA [employer] Hand Smoke Exposure: No Recent Hopitalizations: No Immunizations Up To Date Tetanus Booster (TDap): Unknown PED Vaccines UTD: No Date of Pneumonia Vaccine: Mar 03, 2014 Date of Influenza Vaccine: Mar 03, 2015 Seasonal Allergies Seasonal Allergies: No Past Medical History Surgeries: Yes Bladder Surgery, Gallbladder, 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, Oophorectomy, Tubal Ligation Respiratory: Yes Asthma Currently Using CPAP: No Currently Using BIPAP: No Cardiac: Yes Hypertension, Syncope Neurological: Yes (Tremor) Seizure Disorder 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 Disorders: Yes (HYST 2005--NO PHYSICIAN DOCUMENTATION OF ANY KIND OF CANCER) 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 Disorders: Denies [employer] History: 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 Sexually Transmitted Disease: Yes (HPV) HIV/AIDS: No Genitourinary: Yes Bladder Infection Gastrointestinal: Yes (Gastritis, esophagitis, recurrent nausea and vomiting) Gastroesophageal Reflux, Pancreatitis, Irritable Bowel Musculoskeletal: Yes Chronic Back Pain Endocrine: No HEENT: No Loss of Vision: Denies Cancer: Yes Cervical, Colon Psychosocial: Yes Anxiety, Depression Integumentary: No Blood Disorders: No Adverse Reaction/Blood Tranf: No Family Medical History Diabetes mellitus 19 FATHER FHx: brain tumor 19 MOTHER HPV infection G8 SISTER No Family History of: AIDS Abdominal aortic aneurysm Livingston's disease Alcoholism Alzheimer's disease Aphasia Arthritis Asthma Cancer of mouth Cardiovascular disease Cataracts Colon cancer Completed stroke Congenital disease Congenital heart disease Coronary thrombosis Cystic fibrosis Deafness or hearing loss Dementia Drug abuse Dysphasia Fibrocystic disease of breast Gastroenteritis Glaucoma Headache disorder Hypercholesterolemia Hypertension Infertility Kidney disease Myocardial infarction Neoplasm Not obtainable due to adoption Osteoporosis Parkinson's disease Prostate cancer Psychosocial problem Respiratory disorder Seizure disorder Severe allergy Thyroid disease Tuberculosis Visual disorder Heart Disease, Hypertension, Other Conditions/Hx Physical Exam Vital Signs Vital Signs - First Documented 09/18/20 09/18/20 11:35 12:22 Temp 36.0 Pulse 136 Resp 16 B/P (MAP) 195/136 (155) Pulse Ox 98 O2 Delivery Room Air O2 Flow Rate 2.00 Capillary Refill : Height/Weight/BMI Height: 5'6.00" Weight: 203lbs. 6.4oz. [id number]; 32.00 BMI Method:Stated General Appearance: WD/WN, moderate distress HEENT: PERRL/EOMI, pharynx normal Neck: full range of motion, normal inspection Respiratory: lungs clear, normal breath sounds, no respiratory distress, no accessory muscle use Cardiovascular: normal peripheral pulses, regular rate, rhythm Gastrointestinal: normal bowel sounds, soft, no organomegaly, guarding, tenderness (Tenderness to even light palpation in the epigastric region) Extremities: normal range of motion, non-tender Neurologic/Psychiatric: alert, normal mood/affect, oriented x 3 Skin: normal color, warm/dry Progress/Results/Core Measures Results/Orders Lab Results Laboratory Tests Test 09/18/20 11:45 Range/Units White Blood Count 10.5 4.3-11.0 10^3/uL Red Blood Count 5.16 H 3.80-5.11 10^6/uL Hemoglobin 14.2 11.5-16.0 g/dL Hematocrit 44 35-52 % Mean Corpuscular Volume 85 80-99 fL Mean Corpuscular Hemoglobin 28 25-34 pg Mean Corpuscular Hemoglobin Concent 32 32-36 g/dL Red Cell Distribution Width 15.7 H 10.0-14.5 % Platelet Count 524 H 130-400 10^3/uL Mean Platelet Volume 10.2 9.0-12.2 fL Immature Granulocyte % (Auto) 0 % Neutrophils (%) (Auto) 61 42-75 % Lymphocytes (%) (Auto) 30 12-44 % Monocytes (%) (Auto) 7 0-12 % Eosinophils (%) (Auto) 0 0-10 % Basophils (%) (Auto) 0 0-10 % Neutrophils # (Auto) 6.5 1.8-7.8 10^3/uL Lymphocytes # (Auto) 3.2 1.0-4.0 10^3/uL Monocytes # (Auto) 0.8 0.0-1.0 10^3/uL Eosinophils # (Auto) 0.0 0.0-0.3 10^3/uL Basophils # (Auto) 0.0 0.0-0.1 10^3/uL Immature Granulocyte # (Auto) 0.0 0.0-0.1 10^3/uL Urine Color YELLOW Urine Clarity CLEAR Urine pH 6.0 5-9 Urine Specific [place] 1.010 L 1.016-1.022 Urine Protein NEGATIVE NEGATIVE Urine Glucose (UA) NEGATIVE NEGATIVE Urine Ketones 1+ H NEGATIVE Urine Nitrite NEGATIVE NEGATIVE Urine Bilirubin NEGATIVE NEGATIVE Urine Urobilinogen 0.2 < = 1.0 MG/DL Urine Leukocyte Esterase NEGATIVE NEGATIVE Urine RBC (Auto) NEGATIVE NEGATIVE Urine RBC NONE /HPF Urine WBC 0-2 /HPF Urine Squamous Epithelial Cells 0-2 /HPF Urine Crystals NONE /LPF Urine Bacteria FEW H /HPF Urine Casts NONE /LPF Urine Mucus MODERATE H /LPF Urine Culture Indicated NO Sodium Level 141 135-145 MMOL/L Potassium Level 3.7 3.6-5.0 MMOL/L Chloride Level 98 98-107 MMOL/L Carbon Dioxide Level 24 21-32 MMOL/L Anion Gap 19 H 5-14 MMOL/L Blood Urea Nitrogen 8 7-18 MG/DL Creatinine 0.87 0.60-1.30 MG/DL Estimat Glomerular Filtration Rate > 60 BUN/Creatinine Ratio 9 Glucose Level 111 H 70-105 MG/DL Calcium Level 10.4 H 8.5-10.1 MG/DL Corrected Calcium 8.5-10.1 MG/DL Total Bilirubin 0.5 0.1-1.0 MG/DL Aspartate Amino Transf (AST/SGOT) 50 H 5-34 U/L Alanine Aminotransferase (ALT/SGPT) 90 H 0-55 U/L Alkaline Phosphatase 88 40-136 U/L C-Reactive Protein High Sensitivity 0.72 H 0.00-0.50 MG/DL Total Protein 9.0 H 6.4-8.2 GM/DL Albumin 4.9 H 3.2-4.5 GM/DL Lipase 69 8-78 U/L My Orders Orders - PAULA COLINDRES Ua Culture If Indicated (09/18/20 11:34) Urine Bedside (09/18/20 11:34) Ondansetron Injection (Zofran Injectio (09/18/20 11:45) Cbc With Automated Diff (09/18/20 11:37) Comprehensive Metabolic Panel (09/18/20 11:37) Hs C Reactive Protein (09/18/20 11:37) Lipase (09/18/20 11:37) Ed Iv/Invasive Line Start (09/18/20 11:37) Lactated Ringers (Lr 1000 Ml Iv Solution (09/18/20 11:45) Pantoprazole Injection (Protonix Injecti (09/18/20 12:00) Haloperidol Injection (Haldol Injectio (09/18/20 12:00) Diphenhydramine Injection (Benadryl Inje (09/18/20 12:00) Fentanyl Inj (Sublimaze Injection) (09/18/20 12:00) Lidocaine 2% Viscous 15 Ml (Xylocaine Vi (09/18/20 13:15) Famotidine Tablet (Pepcid Tablet) (09/18/20 13:04) Antacid Suspension (Mylanta Suspension (09/18/20 13:15) Medications Given in ED Current Medications Medications Dose Ordered Sig/Judi Route Start Time Stop Time Status Last Admin Dose Admin Al Hydrox/Mg Hydrox/Simethicone 30 ml ONCE ONCE PO 09/18/20 13:15 09/18/20 13:16 DC 09/18/20 13:15 30 ML Diphenhydramine HCl 25 mg ONCE ONCE IVP 09/18/20 12:00 09/18/20 12:01 DC 09/18/20 12:10 25 MG Fentanyl Citrate 25 mcg ONCE ONCE IVP 09/18/20 12:00 09/18/20 12:01 DC 09/18/20 12:11 25 MCG Haloperidol Lactate 5 mg ONCE ONCE IV 09/18/20 12:00 09/18/20 12:01 DC 09/18/20 12:10 5 MG Lactated Ringer's 1,000 ml @ 0 mls/hr Q0M ONCE IV 09/18/20 11:45 09/18/20 11:46 DC 09/18/20 11:45 1,000 MLS/HR Lidocaine HCl 15 ml ONCE ONCE PO 09/18/20 13:15 09/18/20 13:16 DC 09/18/20 13:15 15 ML Ondansetron HCl 8 mg ONCE ONCE IVP 09/18/20 11:45 09/18/20 11:46 DC 09/18/20 11:45 8 MG Pantoprazole 40 mg ONCE ONCE IV 09/18/20 12:00 09/18/20 12:01 DC 09/18/20 12:08 40 MG Vital Signs/I&O 09/18/20 09/18/20 11:35 12:22 Temp 36.0 Pulse 136 Resp 16 B/P (MAP) 195/136 (155) Pulse Ox 98 85 O2 Delivery Room Air Nasal Cannula O2 Flow Rate 2.00 Progress Progress Note #1: Time: 11:41 Progress Note 8 mg Zofran and a liter of lactated Ringer's and some labs including a lipase. Patient does indicate a history of pancreatitis as well as cannabis hyperemesis syndrome. Plan to give her some Haldol, Benadryl, pantoprazole and IV fluids. Progress Note #2: Time: 13:00 Progress Note The patient has a significant improvement in her nausea. Her pain is not completely gone so are going to give her a GI cocktail. Her labs and urine are unremarkable. Vital signs are aseptic and stable. We will give her a prescription for some Phenergan and have strongly encouraged her to abstain from any THC related product permanently. She acknowledges this plan Progress Note #3: Time: 13:29 Progress Note After the GI cocktail the patient is now snoozing. Easily arousable. She says her pain is much better now. Were going to let her go home with a prescription for some Phenergan in addition to her Zofran and encourage her to keep taking h er antacids and follow-up outpatient Departure Impression Primary Impression: Cannabis hyperemesis syndrome concurrent with and due to cannabis dependence Disposition: HOME, SELF-CARE Condition: Stable Departure-Patient Inst. Decision time for Depature: 13:01 Referrals: [facility] (PCP) Primary Care Physician AUDREY ELIZABETH (Family) Primary Care Physician Patient Instructions: Nausea and Vomiting, Adult Add. Discharge Instructions: Your significant nausea and vomiting seems to be related to cannabis as it has required quite a bit of medication to get it under control. I highly suggest that you stop using any cannabis or THC related products. Symptoms can last up to 6 months or longer after the last use. If you develop a fever or are becoming dehydrated due to your nausea and then I suggest you follow-up with a doctor. We welcome you to come back to the ER for these changes. Continue use your Zofran as prescribed. Phenergan 1 tablet every 6 hours as necessary for persistent nausea in addition to 25 mg of Benadryl every 6 hours. If you have stomach pain again tried Tums, Rolaids, Maalox, Mylanta or other antiacids. Continue to take the Carafate and pantoprazole as prescribed. Stick to a liquid diet until your nausea is feeling better. Scripts Promethazine HCl (Promethazine Tablet) 25 Mg Tablet 25 MG PO Q6H PRN for NAUSEA/VOMITING, #15 TAB 0 Refills Prov: PAULA COLINDRES 09/18/20 Work/School Note: Work Release Form Date Seen in the Emergency Department: Sep 18, 2020 Return to Work: Sep 20, 2020 Restrictions: No Restrictions PAULA COLINDRES Sep 18, 2020 11:40
[2020-09-18] MEDS ORDERED: LACTATED RINGERS 1,000 ML IV ONE (11:45)
[2020-09-18] MEDS ORDERED: ONDANSETRON 4 MG/2 ML (SDV) Z0FRAN IVP ONE (11:45)
[2020-09-18 11:54] LABS: BASOPHILS % (AUTO) 0 % (0-10); BILIRUBIN,URINE NEGATIVE (NEGATIVE); CLARITY,URINE CLEAR; COLOR,URINE YELLOW; EOSINOPHILS % (AUTO) 0 % (0-10); GLUCOSE, URINE (UA) NEGATIVE (NEGATIVE); HEMATOCRIT 44 % (35-52); HEMOGLOBIN 14.2 g/dL (11.5-16.0); KETONES,URINE 1+ (NEGATIVE); LEUKOCYTE ESTERASE ,URINE NEGATIVE (NEGATIVE); LYMPHOCYTES # (AUTO) 3.2 10^3/uL (1.0-4.0); LYMPHOCYTES % (AUTO) 30 % (12-44); MEAN CORPUSCULAR HEMOGLOBIN 28 pg (25-34); MEAN CORPUSCULAR HGB CONC 32 g/dL (32-36); MEAN CORPUSCULAR VOLUME 85 fL (80-99); MEAN PLATELET VOLUME 10.2 fL (9.0-12.2); MONOCYTES # (AUTO) 0.8 10^3/uL (0.0-1.0); MONOCYTES % (AUTO) 7 % (0-12); NEUTROPHILS # (AUTO) 6.5 10^3/uL (1.8-7.8); NEUTROPHILS % (AUTO) 61 % (42-75); NITRITE,URINE NEGATIVE (NEGATIVE); PLATELET COUNT 524 10^3/uL (130-400); PROTEIN,URINE NEGATIVE (NEGATIVE); WHITE BLOOD COUNT 10.5 10^3/uL (4.3-11.0)
[2020-09-18] MEDS ORDERED: fentaNYL INJ 100 MCG/2 ML AMP IVP ONE (12:00)
[2020-09-18] MEDS ORDERED: diphenhydrAMINE 50 MG/ML INJ (BENADRYL) IVP ONE (12:00)
[2020-09-18] MEDS ORDERED: HALOPERIDOL 5 MG/ML (HALDOL) VIAL IV ONE (12:00)
[2020-09-18] MEDS ORDERED: PANTOPRAZOLE 40 MG (PROTONIX) VIAL IV ONE (12:00)
[2020-09-18 12:01] LABS: WBC,URINE 0-2 /HPF
[2020-09-18 12:02] LABS: BACTERIA,URINE FEW /HPF; SQUAMOUS EPITHELIAL CELL,UR 0-2 /HPF
[2020-09-18 12:10] LABS: ALBUMIN 4.9 GM/DL (3.2-4.5); CHLORIDE 98 MMOL/L (98-107); POTASSIUM 3.7 MMOL/L (3.6-5.0); SODIUM 141 MMOL/L (135-145)
[2020-09-18 12:11] LABS: CALCIUM 10.4 MG/DL (8.5-10.1)
[2020-09-18 12:13] LABS: GLUCOSE 111 MG/DL (70-105)
[2020-09-18 12:14] LABS: BILIRUBIN,TOTAL 0.5 MG/DL (0.1-1.0); CARBON DIOXIDE 24 MMOL/L (21-32)
[2020-09-18 12:16] LABS: ALKALINE PHOSPHATASE 88 U/L (40-136); CREATININE SERUM 0.87 MG/DL (0.60-1.30); GFR ESTIMATED > 60
[2020-09-18 12:17] LABS: BUN/CREATININE RATIO 9
[2020-09-18 12:19] LABS: ALANINE AMINOTRANSFERASE 90 U/L (0-55)
[2020-09-18 12:20] LABS: LIPASE 69 U/L (8-78)
[2020-09-18] MEDS ORDERED: FAMOTIDINE 20 MG (PEPCID) TABLET PO STA (13:04)
[2020-09-18] MEDS ORDERED: LIDOCAINE 2% VISCOUS 15 ML UDC PO ONE (13:15)
[2020-09-18] MEDS ORDERED: ANTACID SUSP 30 ML UDC (MYLANTA) PO ONE (13:15)
[2020-09-18] MEDS ORDERED: PROM25TA14 PO (13:30)
[2020-09-18 13:36] VITALS: BP 149/76
[2020-09-19] MEDS ORDERED: PANT40TA52 PO (13:53)
[2020-09-19] MEDS ORDERED: PROM25TA14 PO (13:53)
[2020-09-19] MEDS ORDERED: SUCR1TAB PO (13:53)
[2020-09-20] MEDS ORDERED: ACHYD1T PO (13:28)
== END 2020-09-18 13:36 | disposition home or self-care (01) ==
LOC: EDUNIT# 11:32 → ER 11:34
DX: R11.2 Nausea with vomiting, unspecified (principal); J45.909 Unspecified asthma, uncomplicated; I10 Essential (primary) hypertension; K21.9 Gastro-esophageal reflux disease without esophagitis; Z88.5 Allergy status to narcotic agent; Z88.6 Allergy status to analgesic agent; Z88.8 Allergy status to other drugs, medicaments and biological substances
CPT/HCPCS: 36415; 80053; 81000; 83690; 85025; 86141

== ENCOUNTER 2020-09-19 05:55 | Day surgery (SDC) | payer SELFPAY ==
[2020-09-19] VITALS (12 sets, daily range): BP systolic 162–186; BP diastolic 88–125
[~2020-09-19] VITALS: Ht 167 cm; Wt 109.5 kg
[2020-09-19] MEDS ORDERED: IOHEXOL 350 MG/ML 100 ML (OMNIPAQUE 350) VIAL IV ONE (06:30)
[2020-09-19] MEDS ORDERED: HOLD METFORMIN - RECEIVED CONTRAST 20 ML VIAL IV SCH (06:30)
[2020-09-19] MEDS ORDERED: ONDANSETRON 4 MG/2 ML (SDV) Z0FRAN IVP ONE (06:30)
[2020-09-19] MEDS ORDERED: fentaNYL INJ 100 MCG/2 ML AMP IVP ONE ×3 (06:30→12:30)
[2020-09-19] MEDS ORDERED: LACTATED RINGERS 1,000 ML IV ONE ×2 (06:30)
[2020-09-19] MEDS ORDERED: NS 100 ML (IVPB) BAG IV ONE (06:30)
[2020-09-19] MEDS ORDERED: PANTOPRAZOLE 40 MG (PROTONIX) VIAL IV ONE (06:30)
[2020-09-19 06:31] LABS: BASOPHILS % (AUTO) 0 % (0-10); EOSINOPHILS % (AUTO) 0 % (0-10); HEMATOCRIT 44 % (35-52); HEMOGLOBIN 13.6 g/dL (11.5-16.0); LYMPHOCYTES # (AUTO) 1.6 10^3/uL (1.0-4.0); LYMPHOCYTES % (AUTO) 14 % (12-44); MEAN CORPUSCULAR HEMOGLOBIN 27 pg (25-34); MEAN CORPUSCULAR HGB CONC 31 g/dL (32-36); MEAN CORPUSCULAR VOLUME 87 fL (80-99); MEAN PLATELET VOLUME 9.4 fL (9.0-12.2); MONOCYTES # (AUTO) 0.8 10^3/uL (0.0-1.0); MONOCYTES % (AUTO) 7 % (0-12); NEUTROPHILS # (AUTO) 9.4 10^3/uL (1.8-7.8); NEUTROPHILS % (AUTO) 79 % (42-75); PLATELET COUNT 424 10^3/uL (130-400)
--- NOTE | 2020-09-19 06:33 | ED Abdominal Pain ---
General Chief Complaint: Abdominal/GI Problems Stated Complaint: VOMITTING / NAUSEA Nursing Triage Note: Pt here with continued abdominal pain and vomiting; states she was seen here yesterday for same complaint. Reports she has IBS and has had several episodes recently. Sepsis Screen: No Definite Risk Source of Information: Patient Exam Limitations: No Limitations History of Present Illness Date Seen by Provider: Sep 19, 2020 Time Seen by Provider: 06:17 Initial Comments Patient presents to the ER by private conveyance from home with chief complaint of nausea vomiting and abdominal pain persistent despite the Zofran and now Phenergan which she says she immediately vomited back up. She was seen yesterday evening for the same complaint and has been seen multiple times recently. The only relief she seemed to obtain was from Haldol and Benadryl. She has a history of using cannabis within the last 2 weeks and has been suggested that perhaps she has cannabis hyperemesis syndrome. She was not able to take anything for the pain. She states she has had recent EGD and colonoscopy showing inflammatory changes only. Yesterday she obtained relief of her pain from a GI cocktail. No fever or chills. Allergies and Home Medications Allergies Coded Allergies: morphine (Verified Allergy, Unknown, CAUSES "REBOUND HEADACHES", 08/29/20) PT HAS RECEIVED LORTAB & OXYCODONE IN THE PAST baclofen (Verified Adverse Reaction, Severe, 06/13/15) PATIENT UNAWARE OF REACTION BUT WAS HOSPITALIZED AFTER TAKING MEDICATION AND WAS TOLD IT WAS A REACTION DUE TO THE MEDICATION SHE TOOK. meloxicam (Verified Adverse Reaction, Severe, 06/13/15) PATIENT UNAWARE OF REACTION BUT WAS HOSPITALIZED AFTER TAKING MEDICATION AND WAS TOLD IT WAS A REACTION DUE TO THE MEDICATION SHE TOOK. NSAIDS (Non-Steroidal Anti-Inflamma (Verified Adverse Reaction, Mild, have IBS and avoid NSAIDS, 12/04/12) Home Medications Amlodipine Besylate 10 Mg Tablet, 10 MG PO DAILY, (Reported) Diphenhydramine HCl 25 Mg Capsule, 25-50 MG PO Q6H PRN for ALLERGY SYMPTOMS, (Reported) Hyoscyamine Sulfate 0.125 Mg Tab.subl, 0.125 MG SL TID PRN for STOMACH SPASMS, (Reported) Ondansetron 4 Mg Tab.rapdis, 4 MG PO Q4H PRN for NAUSEA/VOMITING-1ST LINE, (Reported) Pantoprazole Sodium 40 Mg Tablet.dr, 40 MG PO DAILY Prescribed by: KRAIG JIMENEZ on 08/29/20 09 Promethazine HCl 25 Mg Tablet, 25 MG PO Q6H PRN for NAUSEA/VOMITING Prescribed by: PAULA COLINDRES on 09/18/20 1330 Propranolol HCl 80 Mg Tablet, 80 MG PO TID, (Reported) Sucralfate 1 Gm Tablet, 1 GM PO ACHS Prescribed by: KRAIG JIMENEZ on 08/29/20 09 Sumatriptan Succinate 100 Mg Tablet, 100 MG PO DAILY PRN for MIGRAINE, (Reported) Tizanidine HCl 4 Mg Tablet, 4 MG PO TID PRN for MUSCLE SPASMS, (Reported) Patient Home Medication List Home Medication List Reviewed: Yes Review of Systems Review of Systems Constitutional: No chills, No diaphoresis, No fever, No malaise EENTM: No Blurred Vision, No Double Vision Respiratory: Denies Cough, Denies Shortness of Air Cardiovascular: Denies Chest Pain, Denies Lightheadedness Gastrointestinal: See HPI; Denies Abdomen Distended; Abdominal Pain; Denies Constipated; Diarrhea, Nausea, Poor Fluid Intake, Vomiting Genitourinary: Denies Burning, Denies Discharge Musculoskeletal: No back pain, No joint pain All Other Systems Reviewed Negative Unless Noted: Yes Past [id number]-Isgtxk Hx Patient Social History Alcohol Use: Denies Use Drug of Choice: MARIJUANA 2nd Hand Smoke Exposure: No Recent Infectious Disease Expo: No Recent Hopitalizations: No Immunizations Up To Date Tetanus Booster (TDap): Unknown PED Vaccines UTD: No Date of Pneumonia Vaccine: Mar 03, 2014 Date of Influenza Vaccine: Mar 03, 2015 Seasonal Allergies Seasonal Allergies: No Past Medical History Surgeries: Yes Bladder Surgery, Gallbladder, 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, Oophorectomy, Tubal Ligation Respiratory: Yes Asthma Currently Using CPAP: No Currently Using BIPAP: No Cardiac: Yes Hypertension, Syncope Neurological: Yes (Tremor) Seizure Disorder 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 Disorders: Yes (HYST 2005--NO PHYSICIAN DOCUMENTATION OF ANY KIND OF CANCER) 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 Disorders: Denies [employer] History: 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 Sexually Transmitted Disease: Yes (HPV) HIV/AIDS: No Genitourinary: Yes Bladder Infection Gastrointestinal: Yes (Gastritis, esophagitis, recurrent nausea and vomiting) Gastroesophageal Reflux, Pancreatitis, Irritable Bowel Musculoskeletal: Yes Chronic Back Pain Endocrine: No HEENT: No Loss of Vision: Denies Cancer: Yes Cervical, Colon Psychosocial: Yes Anxiety, Depression Integumentary: No Blood Disorders: No Adverse Reaction/Blood Tranf: No Family Medical History Diabetes mellitus 19 FATHER FHx: brain tumor 19 MOTHER HPV infection G8 SISTER No Family History of: AIDS Abdominal aortic aneurysm Madi's disease Alcoholism Alzheimer's disease Aphasia Arthritis Asthma Cancer of mouth Cardiovascular disease Cataracts Colon cancer Completed stroke Congenital disease Congenital heart disease Coronary thrombosis Cystic fibrosis Deafness or hearing loss Dementia Drug abuse Dysphasia Fibrocystic disease of breast Gastroenteritis Glaucoma Headache disorder Hypercholesterolemia Hypertension Infertility Kidney disease Myocardial infarction Neoplasm Not obtainable due to adoption Osteoporosis Parkinson's disease Prostate cancer Psychosocial problem Respiratory disorder Seizure disorder Severe allergy Thyroid disease Tuberculosis Visual disorder Heart Disease, Hypertension, Other Conditions/Hx Physical Exam Vital Signs Vital Signs - First Documented 09/19/20 06:21 Temp 35.6 Pulse 117 Resp 18 B/P (MAP) 172/103 (126) Pulse Ox 99 O2 Delivery Room Air Capillary Refill : Less Than 3 Seconds Height/Weight/BMI Height: 5'6.00" Weight: 203lbs. 6.4oz. 92.019241ed; 35.00 BMI Method:Stated General Appearance: WD/WN, no apparent distress (Upon walking in the room however with the initiation of taking a history the patient becomes tearful, moaning and guarding her belly.) HEENT: PERRL/EOMI, pharynx normal Neck: full range of motion, normal inspection Respiratory: lungs clear, normal breath sounds, no respiratory distress, no accessory muscle use Cardiovascular: normal peripheral pulses, regular rate, rhythm Gastrointestinal: normal bowel sounds, no organomegaly, guarding (All 4 quadrants), tenderness (All 4 quadrants to even gentle touch) Extremities: normal range of motion, normal inspection, normal capillary refill Neurologic/Psychiatric: alert, oriented x 3 Skin: normal color, warm/dry Progress/Results/Core Measures Results/Orders Lab Results Laboratory Tests Test 09/19/20 06:18 Range/Units White Blood Count 12.0 H 4.3-11.0 10^3/uL Red Blood Count 5.04 3.80-5.11 10^6/uL Hemoglobin 13.6 11.5-16.0 g/dL Hematocrit 44 35-52 % Mean Corpuscular Volume 87 80-99 fL Mean Corpuscular Hemoglobin 27 25-34 pg Mean Corpuscular Hemoglobin Concent 31 L 32-36 g/dL Red Cell Distribution Width 15.8 H 10.0-14.5 % Platelet Count 424 H 130-400 10^3/uL Mean Platelet Volume 9.4 9.0-12.2 fL Immature Granulocyte % (Auto) 1 % Neutrophils (%) (Auto) 79 H 42-75 % Lymphocytes (%) (Auto) 14 12-44 % Monocytes (%) (Auto) 7 0-12 % Eosinophils (%) (Auto) 0 0-10 % Basophils (%) (Auto) 0 0-10 % Neutrophils # (Auto) 9.4 H 1.8-7.8 10^3/uL Lymphocytes # (Auto) 1.6 1.0-4.0 10^3/uL Monocytes # (Auto) 0.8 0.0-1.0 10^3/uL Eosinophils # (Auto) 0.0 0.0-0.3 10^3/uL Basophils # (Auto) 0.0 0.0-0.1 10^3/uL Immature Granulocyte # (Auto) 0.1 0.0-0.1 10^3/uL Sodium Level 141 135-145 MMOL/L Potassium Level 3.2 L 3.6-5.0 MMOL/L Chloride Level 97 L 98-107 MMOL/L Carbon Dioxide Level 27 21-32 MMOL/L Anion Gap 17 H 5-14 MMOL/L Blood Urea Nitrogen 10 7-18 MG/DL Creatinine 0.96 0.60-1.30 MG/DL Estimat Glomerular Filtration Rate > 60 BUN/Creatinine Ratio 10 Glucose Level 129 H 70-105 MG/DL Calcium Level 10.1 8.5-10.1 MG/DL Corrected Calcium 8.5-10.1 MG/DL Total Bilirubin 0.5 0.1-1.0 MG/DL Aspartate Amino Transf (AST/SGOT) 41 H 5-34 U/L Alanine Aminotransferase (ALT/SGPT) 79 H 0-55 U/L Alkaline Phosphatase 82 40-136 U/L C-Reactive Protein High Sensitivity 0.57 H 0.00-0.50 MG/DL Total Protein 8.3 H 6.4-8.2 GM/DL Albumin 4.8 H 3.2-4.5 GM/DL Lipase 57 8-78 U/L My Orders Orders - PAULA COLINDRES Cbc With Automated Diff (09/19/20 06:24) Comprehensive Metabolic Panel (09/19/20 06:24) Hs C Reactive Protein (09/19/20 06:24) Lipase (09/19/20 06:24) Ed Iv/Invasive Line Start (09/19/20 06:24) Lactated Ringers (Lr 1000 Ml Iv Solution (09/19/20 06:30) Ct Abdomen/Pelvis W (09/19/20 06:24) Lactated Ringers (Lr 1000 Ml Iv Solution (09/19/20 06:30) Fentanyl Inj (Sublimaze Injection) (09/19/20 06:30) Pantoprazole Injection (Protonix Injecti (09/19/20 06:30) Ondansetron Injection (Zofran Injectio (09/19/20 06:30) Iohexol Injection (Omnipaque 350 Mg/Ml 1 (09/19/20 06:30) Received Contrast (Hold Metformin- Contr (09/19/20 06:30) Ns (Ivpb) (Sodium Chloride 0.9% Ivpb Bag (09/19/20 06:30) Lidocaine 2% Viscous 15 Ml (Xylocaine Vi (09/19/20 07:30) Famotidine Tablet (Pepcid Tablet) (09/19/20 07:18) Antacid Suspension (Mylanta Suspension (09/19/20 07:30) Fentanyl Inj (Sublimaze Injection) (09/19/20 07:30) Medications Given in ED Current Medications Medications Dose Ordered Sig/Judi Route Start Time Stop Time Status Last Admin Dose Admin Fentanyl Citrate 50 mcg ONCE ONCE IVP 09/19/20 06:30 09/19/20 06:31 DC 09/19/20 06:41 50 MCG Fentanyl Citrate 50 mcg ONCE ONCE IVP 09/19/20 07:30 09/19/20 07:31 DC 09/19/20 07:33 50 MCG Lactated Ringer's 1,000 ml @ 0 mls/hr Q0M ONCE IV 09/19/20 06:30 09/19/20 06:31 DC 09/19/20 06:37 1,000 MLS/HR Lactated Ringer's 1,000 ml @ 0 mls/hr Q0M ONCE IV 09/19/20 06:30 09/19/20 06:31 DC 09/19/20 07:58 1,000 MLS/HR Ondansetron HCl 12 mg ONCE ONCE IVP 09/19/20 06:30 09/19/20 06:31 DC 09/19/20 06:37 12 MG Pantoprazole 40 mg ONCE ONCE IV 09/19/20 06:30 09/19/20 06:31 DC 09/19/20 06:41 40 MG Sodium Chloride 100 ml ONCE ONCE IV 09/19/20 06:30 09/19/20 06:36 DC 09/19/20 07:03 100 ML Vital Signs/I&O 09/19/20 06:21 Temp 35.6 Pulse 117 Resp 18 B/P (MAP) 172/103 (126) Pulse Ox 99 O2 Delivery Room Air Blood Pressure Mean: 126 Progress Progress Note : Time: 06:31 Progress Note Possibly cannabis hyperemesis syndrome, abdominal migraine or other intra- abdominal pathology. She has had this bring her to the ER frequently. Obstipation, bowel obstruction? Gastroenteritis/colitis, irritable versus inflammatory bowel disease. She has had several surgeries including bladder sling and subsequent removal, cholecystectomy and hysterectomy as well as tubal ligation. Adhesions is a possibility. EGD and colonoscopy from August 28 approximately 2 to 3 weeks ago showed just gastritis and esophagitis. She was put on pantoprazole and Carafate however can likely not tolerate it if she is having constant nausea. She has a history of pancreatitis however her p ancreatic enzymes were normal yesterday. No mention of ERCP. plan to give her some ondansetron couple liters of fluid may be some hyoscyamine. Yesterday Haldol helped her nausea and GI cocktail took away her pain. Diagnostic Imaging Diagonstic Imaging: CT Plain Films/CT/US/NM/MRI: abdomen, pelvis Comments [facility]. [place], [place] NAME: D[facility]IAN [facility] REC#: [id number] PT STATUS: REG ER : 1975 PHYSICIAN: PAULA COLINDRES MD ADMIT DATE: 09/19/20/ER Draft Date of Exam:09/19/20 CT ABDOMEN/PELVIS W PROCEDURE: CT abdomen and pelvis with contrast. TECHNIQUE: Multiple contiguous axial images were obtained through the abdomen and pelvis after administration of intravenous contrast. Auto Exposure Controls were utilized during the CT exam to meet ALARA standards for radiation dose reduction. All CT scans use one or more of the following dose optimizing techniques: automated exposure control, MA and/or KvP adjustment based on patient size and exam type or iterative reconstruction. INDICATION: Abdominal pain, intractable nausea and vomiting. COMPARISON: 08/24/2020 and 03/03/2019 FINDINGS: The visualized lung bases are clear. Cholecystectomy. The liver and spleen are unremarkable. The adrenal glands are unremarkable. The pancreas is unremarkable. A small bowel intussusception is noted within the left abdomen, best seen on series 2, image 28. No associated bowel obstruction. The colon is predominantly decompressed with mild mural thickening through the majority of the colon. No evidence of acute appendicitis. No bowel obstruction. No aneurysmal dilatation of the abdominal aorta. The urinary bladder is predominantly decompressed, though otherwise unremarkable. The uterus is not visualized, likely surgically absent. No abnormal adnexal mass lesion. The kidneys are unremarkable. No significant adenopathy, free air, or free fluid within the abdomen or pelvis. Small duodenal diverticulum arising from the 3rd portion of the duodenum. No acute osseous abnormality with minimal scattered osseous degenerative changes. IMPRESSION: Mural thickening of the majority of the colon. This is felt to relate to poor distention versus colitis. Nonobstructing small bowel intussusception within the left abdomen. This is nonspecific, though typically in adults this is an incidental finding. Additional findings as described above. Dictated on workstation # [id number] Dict: 09/19/20 0712 Trans: 09/19/20 0720 [id number] Interpreted by: SÁNCHEZ SILVESTRE MD Electronically signed by: Reviewed: Reviewed by Ms Departure Communication (Admissions) Time/Spoke to Admitting Phy: 08:14 Discussed the case with Dr. Villa after he has examined the patient and he is going to take the patient for a laparoscopic diagnostic procedure with possible small bowel resection if he can find the intussusception. He is going to add her to the end of his cases if we would put her up on observation Impression Primary Impression: Small bowel intussusception Additional Impressions: Intractable nausea and vomiting Intractable abdominal pain Disposition: ADMITTED INPATIENT Condition: Stable Admissions Decision to Admit Reason: Admit from ER (General) Decision to Admit/Date: Sep 19, 2020 Time/Decision to Admit Time: 08:15 Departure-Patient Inst. Referrals: [facility] (PCP) Primary Care Physician AUDREY ELIZABETH (Family) Primary Care Physician PAULA COLINDRES Sep 19, 2020 06:33
[2020-09-19 06:48] LABS: ALBUMIN 4.8 GM/DL (3.2-4.5); CHLORIDE 97 MMOL/L (98-107); POTASSIUM 3.2 MMOL/L (3.6-5.0); SODIUM 141 MMOL/L (135-145)
[2020-09-19 06:49] LABS: CALCIUM 10.1 MG/DL (8.5-10.1)
[2020-09-19 06:51] LABS: GLUCOSE 129 MG/DL (70-105); TOTAL PROTEIN 8.3 GM/DL (6.4-8.2)
[2020-09-19 06:52] LABS: CARBON DIOXIDE 27 MMOL/L (21-32)
[2020-09-19 06:53] LABS: BILIRUBIN,TOTAL 0.5 MG/DL (0.1-1.0)
[2020-09-19 06:54] LABS: ALKALINE PHOSPHATASE 82 U/L (40-136)
[2020-09-19 06:55] LABS: CREATININE SERUM 0.96 MG/DL (0.60-1.30); GFR ESTIMATED > 60
[2020-09-19 06:56] LABS: BUN/CREATININE RATIO 10
[2020-09-19 06:57] LABS: ALANINE AMINOTRANSFERASE 79 U/L (0-55)
[2020-09-19 06:58] LABS: LIPASE 57 U/L (8-78)
[2020-09-19] MEDS ORDERED: FAMOTIDINE 20 MG (PEPCID) TABLET PO STA (07:18)
--- NOTE | 2020-09-19 07:21 | Diagnostic Imaging Report ---
PROCEDURE: CT abdomen and pelvis with contrast. TECHNIQUE: Multiple contiguous axial images were obtained through the abdomen and pelvis after administration of intravenous contrast. Auto Exposure Controls were utilized during the CT exam to meet ALARA standards for radiation dose reduction. All CT scans use one or more of the following dose optimizing techniques: automated exposure control, MA and/or KvP adjustment based on patient size and exam type or iterative reconstruction. INDICATION: Abdominal pain, intractable nausea and vomiting. COMPARISON: 08/24/2020 and 03/03/2019 FINDINGS: The visualized lung bases are clear. Cholecystectomy. The liver and spleen are unremarkable. The adrenal glands are unremarkable. The pancreas is unremarkable. A small bowel intussusception is noted within the left abdomen, best seen on series 2, image 28. No associated bowel obstruction. The colon is predominantly decompressed with mild mural thickening through the majority of the colon. No evidence of acute appendicitis. No bowel obstruction. No aneurysmal dilatation of the abdominal aorta. The urinary bladder is predominantly decompressed, though otherwise unremarkable. The uterus is not visualized, likely surgically absent. No abnormal adnexal mass lesion. The kidneys are unremarkable. No significant adenopathy, free air, or free fluid within the abdomen or pelvis. Small duodenal diverticulum arising from the 3rd portion of the duodenum. No acute osseous abnormality with minimal scattered osseous degenerative changes. IMPRESSION: Mural thickening of the majority of the colon. This is felt to relate to poor distention versus colitis. Nonobstructing small bowel intussusception within the left abdomen. This is nonspecific, though typically in adults this is an incidental finding. Additional findings as described above. Dictated by: Dictated on workstation # [id number]
[2020-09-19] MEDS ORDERED: ANTACID SUSP 30 ML UDC (MYLANTA) PO ONE (07:30)
[2020-09-19] MEDS ORDERED: LIDOCAINE 2% VISCOUS 15 ML UDC PO ONE (07:30)
[2020-09-19] MEDS ORDERED: diphenhydrAMINE 50 MG/ML INJ (BENADRYL) IVP ONE (08:45)
[2020-09-19] MEDS ORDERED: HALOPERIDOL 5 MG/ML (HALDOL) VIAL IV ONE (08:45)
--- NOTE | 2020-09-19 09:12 | History & Physical-Surgical ---
FAMILIA PINEDA MED STUDENT 09/19/20 0912: History of Present Illness History of Present Illness Reason for visit/HPI Maggy Martel is a 44 yo F complaining of nausea, vomiting and abdominal pain. CT in the emergency department showed intussusception, prompting surgical consult. The patient reports episodes of nausea and vomiting occurring a month ago. She had an EGD done showing gastritis and esophagitis 3 weeks ago and states her symptoms resolved and were absent for 1 week after that. The patient complains 2 weeks ago she began to experience nausea again, which has been constant since with waxing and waning intensity. When severe, her symptoms are not improved with zofran, karafate, or phenergan. The patient states she began to feel abdominal pain with her episodes of vomiting, but at 3 am today experienced onset of constant sharp diffuse abdominal pain, severity 10/10. Nothing has improved her pain, and vomiting makes it worse. She states 2 days ago she had liquid stools but they have since been more solid, denies blood in the stool and denies constipation. Date of Admission Sep 19, 2020 at 08:20 I consulted on this patient on 09/19/20 09:07 Attending Physician Loly Bhatti DO Admitting Physician [place] Consult Allergies and Home Medications Allergies Coded Allergies: morphine (Verified Allergy, Unknown, CAUSES "REBOUND HEADACHES", 08/29/20) PT HAS RECEIVED LORTAB & OXYCODONE IN THE PAST baclofen (Verified Adverse Reaction, Severe, 06/13/15) PATIENT UNAWARE OF REACTION BUT WAS HOSPITALIZED AFTER TAKING MEDICATION AND WAS TOLD IT WAS A REACTION DUE TO THE MEDICATION SHE TOOK. meloxicam (Verified Adverse Reaction, Severe, 06/13/15) PATIENT UNAWARE OF REACTION BUT WAS HOSPITALIZED AFTER TAKING MEDICATION AND WAS TOLD IT WAS A REACTION DUE TO THE MEDICATION SHE TOOK. NSAIDS (Non-Steroidal Anti-Inflamma (Verified Adverse Reaction, Mild, have IBS and avoid NSAIDS, 12/04/12) Home Medications Amlodipine Besylate 10 Mg Tablet, 10 MG PO DAILY, (Reported) Diphenhydramine HCl 25 Mg Capsule, 25-50 MG PO Q6H PRN for ALLERGY SYMPTOMS, (Reported) Hyoscyamine Sulfate 0.125 Mg Tab.subl, 0.125 MG SL TID PRN for STOMACH SPASMS, (Reported) Ondansetron 4 Mg Tab.rapdis, 4 MG PO Q4H PRN for NAUSEA/VOMITING-1ST LINE, (Reported) Pantoprazole Sodium 40 Mg Tablet.dr, 40 MG PO DAILY Prescribed by: KRAIG JIMENEZ on 08/29/20932 Promethazine HCl 25 Mg Tablet, 25 MG PO Q6H PRN for NAUSEA/VOMITING Prescribed by: PAULA COLINDRES on 09/18/20 1330 Propranolol HCl 80 Mg Tablet, 80 MG PO TID, (Reported) Sucralfate 1 Gm Tablet, 1 GM PO ACHS Prescribed by: KRAIG JIMENEZ on 08/29/20932 Sumatriptan Succinate 100 Mg Tablet, 100 MG PO DAILY PRN for MIGRAINE, (Reported) Tizanidine HCl 4 Mg Tablet, 4 MG PO TID PRN for MUSCLE SPASMS, (Reported) Past Vzhbxga-Pythci-Udamtm Hx Patient Social History Drug of Choice: MARIJUANA 2nd Hand Smoke Exposure: No Recent Hopitalizations: No Alcohol Use?: No Immunizations Up To Date Tetanus Booster (TDap): Unknown PED Vaccines UTD: No Date of Pneumonia Vaccine: Mar 03, 2014 Date of Influenza Vaccine: Mar 03, 2015 Seasonal Allergies Seasonal Allergies: No Surgeries History of Surgeries: Yes Surgeries: Bladder Surgery, Gallbladder, 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, Oophorectomy, Tubal Ligation Respiratory History of Respiratory Disorde: Yes Respiratory Disorders: Asthma Cardiovascular History of Cardiac Disorders: Yes Cardiac Disorders: Hypertension, Syncope Neurological History of Neurological Disord: Yes (Tremor) Neurological Disorders: Seizure Disorder 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 System Hx 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 Disorders: Yes (ST 2005--NO PHYSICIAN DOCUMENTATION OF ANY KIND OF CANCER) Sexually Transmitted Disease: Yes (HPV) HIV/AIDS: No 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 Disorders: 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 Genitourinary History of Genitourinary Disor: Yes Genitourinary Disorders: Bladder Infection Gastrointestinal History of Gastrointestinal Di: Yes (Gastritis, esophagitis, recurrent nausea and vomiting) Gastrointestinal Disorders: Gastroesophageal Reflux, Pancreatitis, Irritable Bowel Musculoskeletal History of Musculoskeletal Dis: Yes Musculoskeletal Disorders: Chronic Back Pain Endocrine History of Endocrine Disorders: No HEENT History of HEENT Disorders: No Loss of Vision: Denies Cancer History of Cancer: Yes Cancer: Cervical, Colon Psychosocial History of Psychiatric Problem: Yes Behavioral Health Disorders: Anxiety, Depression Integumentary History of Skin or Integumenta: No Blood Transfusions History of Blood Disorders: No Adverse Reaction to a Blood Tr: No Family Medical History Significant Family History: Heart Disease, Hypertension, Other Conditions/Hx (mother - brain tumor in 30s to 40's. Father - diabetes dx age 17) Family Medial History: Diabetes mellitus 19 FATHER FHx: brain tumor 19 MOTHER HPV infection G8 SISTER No Family History of: AIDS Abdominal aortic aneurysm Iroquois's disease Alcoholism Alzheimer's disease Aphasia Arthritis Asthma Cancer of mouth Cardiovascular disease Cataracts Colon cancer Completed stroke Congenital disease Congenital heart disease Coronary thrombosis Cystic fibrosis Deafness or hearing loss Dementia Drug abuse Dysphasia Fibrocystic disease of breast Gastroenteritis Glaucoma Headache disorder Hypercholesterolemia Hypertension Infertility Kidney disease Myocardial infarction Neoplasm Not obtainable due to adoption Osteoporosis Parkinson's disease Prostate cancer Psychosocial problem Respiratory disorder Seizure disorder Severe allergy Thyroid disease Tuberculosis Visual disorder Review of Systems Constitutional: No chills, No fever EENTM: No vision loss, No throat pain Respiratory: No cough, No short of breath Cardiovascular: No chest pain, No palpitations Gastrointestinal: abdominal pain; No hematemesis; nausea, vomiting Genitourinary: No dysuria, No incontinence Musculoskeletal: back pain (chronic); No joint pain Skin: No change in color, No rash Psychiatric/Neurological: Denies Paresthesia, Denies Tremors All Other Systems Reviewed Negative Unless Noted: Yes Physical Exam Vital Signs Vital Signs - First Documented 09/19/20 06:21 Temp 35.6 Pulse 117 Resp 18 B/P (MAP) 172/103 (126) Pulse Ox 99 O2 Delivery Room Air Capillary Refill : Less Than 3 Seconds Height, Weight, BMI Height: 5'6.00" Weight: 203lbs. 6.4oz. [id number]; 35.00 BMI Method:Stated General Appearance: Mild Distress, Obese HEENT: PERRL/EOMI Neck: Non Tender Respiratory: Chest Non Tender, Lungs Clear, Normal Breath Sounds, No Accessory Muscle Use, No Respiratory Distress Cardiovascular: Gallop/S4, Tachycardia (regular rhythm) Gastrointestinal: No Pulsatile Mass; No Distended, No Guarding, No Rebound; Tenderness (diffuse moderate tenderness to palpation, worst on the left side), Other (increased warmth) Back: Normal Inspection Extremity: Non Tender, No Pedal Edema Neurologic/Psychiatric: Alert, Oriented x3 Skin: Normal Color, Warm/Dry Data Review Labs Laboratory Tests 09/19/20 06:18: White Blood Count 12.0H, Red Blood Count 5.04, Hemoglobin 13.6, Hematocrit 44, Mean Corpuscular Volume 87, Mean Corpuscular Hemoglobin 27, Mean Corpuscular Hemoglobin Concent 31L, Red Cell Distribution Width 15.8H, Platelet Count 424H, Mean Platelet Volume 9.4, Immature Granulocyte % (Auto) 1, Neutrophils (%) (Auto) 79H, Lymphocytes (%) (Auto) 14, Monocytes (%) (Auto) 7, Eosinophils (%) (Auto) 0, Basophils (%) (Auto) 0, Neutrophils # (Auto) 9.4H, Lymphocytes # (Auto) 1.6, Monocytes # (Auto) 0.8, Eosinophils # (Auto) 0.0, Basophils # (Auto) 0.0, Immature Granulocyte # (Auto) 0.1, Sodium Level 141, Potassium Level 3.2L, Chloride Level 97L, Carbon Dioxide Level 27, Anion Gap 17H, Blood Urea Nitrogen 10, Creatinine 0.96, Estimat Glomerular Filtration Rate > 60, BUN/Creatinine Ratio 10, Glucose Level 129H, Calcium Level 10.1, Corrected Calcium , Total Bilirubin 0.5, Aspartate Amino Transf (AST/SGOT) 41H, Alanine Aminotransferase (ALT/SGPT) 79H, Alkaline Phosphatase 82, C-Reactive Protein High Sensitivity 0.57H, Total Protein 8.3H, Albumin 4.8H, Lipase 57 Assessment/Plan Assessment/Plan Admission Diagonsis intussusception nausea and vomiting Assessment/Plan intussusception nausea and vomiting patient is in severe pain due to intussusception. She would like to try fixing this surgically. We will do this surgery today. nausea moderately controlled with 12mg Zofran in the ED. LOLY BHATTI DO 09/19/20 1119: History of Present Illness History of Present Illness Reason for visit/HPI Surgery asked to consult regarding abdominal pain and intractable N/V. HPI per ED: Patient presents to the ER by private conveyance from home with chief complaint of nausea vomiting and abdominal pain persistent despite the Zofran and now Phenergan which she says she immediately vomited back up. She was seen yesterday evening for the same complaint and has been seen multiple times recently. The only relief she seemed to obtain was from Haldol and Benadryl. She has a history of using cannabis within the last 2 weeks and has been suggested that perhaps she has cannabis hyperemesis syndrome. She was not able to take anything for the pain. She states she has had recent EGD and colonoscopy showing inflammatory changes only. Yesterday she obtained relief of her pain from a GI cocktail. No fever or chills. When I saw pt she stated the pain was so bad, she could not go home and "wants to do something about it". Nothing is really making the pain or nausea better. Time Seen by a Provider: 08:01 Allergies and Home Medications Allergies Coded Allergies: morphine (Verified Allergy, Unknown, CAUSES "REBOUND HEADACHES", 08/29/20) PT HAS RECEIVED LORTAB & OXYCODONE IN THE PAST baclofen (Verified Adverse Reaction, Severe, 06/13/15) PATIENT UNAWARE OF REACTION BUT WAS HOSPITALIZED AFTER TAKING MEDICATION AND WAS TOLD IT WAS A REACTION DUE TO THE MEDICATION SHE TOOK. meloxicam (Verified Adverse Reaction, Severe, 06/13/15) PATIENT UNAWARE OF REACTION BUT WAS HOSPITALIZED AFTER TAKING MEDICATION AND WAS TOLD IT WAS A REACTION DUE TO THE MEDICATION SHE TOOK. NSAIDS (Non-Steroidal Anti-Inflamma (Verified Adverse Reaction, Mild, have IBS and avoid NSAIDS, 12/04/12) Home Medications Amlodipine Besylate 10 Mg Tablet, 10 MG PO DAILY, (Reported) Diphenhydramine HCl 25 Mg Capsule, 25-50 MG PO Q6H PRN for ALLERGY SYMPTOMS, (Reported) Hyoscyamine Sulfate 0.125 Mg Tab.subl, 0.125 MG SL TID PRN for STOMACH SPASMS, (Reported) Ondansetron 4 Mg Tab.rapdis, 4 MG PO Q4H PRN for NAUSEA/VOMITING-1ST LINE, (Reported) Pantoprazole Sodium 40 Mg Tablet.dr, 40 MG PO DAILY Prescribed by: KRAIG JIMENEZ on 08/29/20932 Promethazine HCl 25 Mg Tablet, 25 MG PO Q6H PRN for NAUSEA/VOMITING Prescribed by: PAULA COLINDRES on 09/18/20 1330 Propranolol HCl 80 Mg Tablet, 80 MG PO TID, (Reported) Sucralfate 1 Gm Tablet, 1 GM PO ACHS Prescribed by: KRAIG JIMENEZ on 08/29/20932 Sumatriptan Succinate 100 Mg Tablet, 100 MG PO DAILY PRN for MIGRAINE, (Reported) Tizanidine HCl 4 Mg Tablet, 4 MG PO TID PRN for MUSCLE SPASMS, (Reported) Patient Home Medication List Home Medication List Reviewed: Yes Past Eatpkdz-Bzjrrg-Alzbyg Hx Patient Social History Alcohol Use?: No Surgeries History of Surgeries: Yes (EGD and colonoscopy) Respiratory History of Respiratory Disorde: No Cardiovascular History of Cardiac Disorders: No Neurological History of Neurological Disord: No Genitourinary History of Genitourinary Disor: No Gastrointestinal History of Gastrointestinal Di: Yes Gastrointestinal Disorders: Gastroesophageal Reflux, Pancreatitis, Irritable Bowel (intractable N/V) Musculoskeletal History of Musculoskeletal Dis: No Endocrine History of Endocrine Disorders: No HEENT History of HEENT Disorders: Yes (poor dentition) Loss of Vision: Denies Hearing Impairment: Denies Cancer History of Cancer: No Psychosocial Behavioral Health Disorders: Anxiety, Depression Integumentary History of Skin or Integumenta: No Family Medical History Significant Family History: Heart Disease, Hypertension, Other Conditions/Hx (mother - brain tumor in 30s to 40's. Father - diabetes dx age 17) Family Medial History: Diabetes mellitus 19 FATHER FHx: brain tumor 19 MOTHER HPV infection G8 SISTER No Family History of: AIDS Abdominal aortic aneurysm Iroquois's disease Alcoholism Alzheimer's disease Aphasia Arthritis Asthma Cancer of mouth Cardiovascular disease Cataracts Colon cancer Completed stroke Congenital disease Congenital heart disease Coronary thrombosis Cystic fibrosis Deafness or hearing loss Dementia Drug abuse Dysphasia Fibrocystic disease of breast Gastroenteritis Glaucoma Headache disorder Hypercholesterolemia Hypertension Infertility Kidney disease Myocardial infarction Neoplasm Not obtainable due to adoption Osteoporosis Parkinson's disease Prostate cancer Psychosocial problem Respiratory disorder Seizure disorder Severe allergy Thyroid disease Tuberculosis Visual disorder Review of Systems Constitutional: No chills, No fever EENTM: No vision loss, No throat pain Respiratory: No cough, No short of breath Cardiovascular: No chest pain, No palpitations Gastrointestinal: abdominal pain; No hematemesis, No jaundice; nausea, vomiting Genitourinary: No dysuria, No incontinence Musculoskeletal: back pain (chronic); No joint pain Skin: No change in color, No change in hair/nails, No rash Psychiatric/Neurological: Denies Paresthesia, Denies Tremors Physical Exam General Appearance: Mild Distress, Obese Eyes: Bilateral Eye PERRL, Bilateral Eye EOMI HEENT: Moist Mucous Membranes; No Pale Conjunctivae (L), No Pale Conjunctivae (R); Other (poor dentition) Neck: Full Range of Motion, Non Tender Respiratory: Chest Non Tender, Lungs Clear, Normal Breath Sounds, No Accessory Muscle Use, No Respiratory Distress Cardiovascular: No Murmur, Gallop/S4, Tachycardia (regular rhythm) Gastrointestinal: No Distended; Guarding (voluntary); No Rebound; Tenderness (diffuse moderate tenderness to palpation, worst on the left side), Other (increased warmth) Rectal: Deferred Back: No CVA Tenderness, No Vertebral Tenderness Extremity: Non Tender, No Pedal Edema Neurologic/Psychiatric: Alert, Oriented x3 Skin: Normal Color, Warm/Dry Lymphatic: No Adenopathy (neck, axilla or groin) Data Review Radiology Date of Exam:09/19/20 CT ABDOMEN/PELVIS W PROCEDURE: CT abdomen and pelvis with contrast. TECHNIQUE: Multiple contiguous axial images were obtained through the abdomen and pelvis after administration of intravenous contrast. Auto Exposure Controls were utilized during the CT exam to meet ALARA standards for radiation dose reduction. All CT scans use one or more of the following dose optimizing techniques: automated exposure control, MA and/or KvP adjustment based on patient size and exam type or iterative reconstruction. INDICATION: Abdominal pain, intractable nausea and vomiting. COMPARISON: 08/24/2020 and 03/03/2019 FINDINGS: The visualized lung bases are clear. Cholecystectomy. The liver and spleen are unremarkable. The adrenal glands are unremarkable. The pancreas is unremarkable. A small bowel intussusception is noted within the left abdomen, best seen on series 2, image 28. No associated bowel obstruction. The colon is predominantly decompressed with mild mural thickening through the majority of the colon. No evidence of acute appendicitis. No bowel obstruction. No aneurysmal dilatation of the abdominal aorta. The urinary bladder is predominantly decompressed, though otherwise unremarkable. The uterus is not visualized, likely surgically absent. No abnormal adnexal mass lesion. The kidneys are unremarkable. No significant adenopathy, free air, or free fluid within the abdomen or pelvis. Small duodenal diverticulum arising from the 3rd portion of the duodenum. No acute osseous abnormality with minimal scattered osseous degenerative changes. IMPRESSION: Mural thickening of the majority of the colon. This is felt to relate to poor distention versus colitis. Nonobstructing small bowel intussusception within the left abdomen. This is nonspecific, though typically in adults this is an incidental finding. Additional findings as described above. Dictated by: Dictated on workstation # [id number] Dict: 04/711 Trans: 09/19/20903 [id number] Interpreted by: SÁNCHEZ SILVESTRE MD Electronically signed by: SÁNCHEZ SILVESTRE MD 09/19/2004 Assessment/Plan Assessment/Plan Admission Diagonsis Intussusception Intractable N/V Abd pain Admission Status: Inpatient Order (span 2 midnights) Reason for Inpatient Admission: pt is going to surgery and may have pain control needs, will probably be here more than 2 midnights Assessment/Plan Intussusception Intractable N/V Abd pain Pt has been having recurrent N/V and abdominal pain, unsure if this was Cannabis Hyperemesis; but pt has not had THC in over [address] today has a visible intussusception; which generally is an incidental finding in adults. However, because of her severe pain today and hx of N/V I gave her a few options. 1) Diagnostic Lap try and find intussuscetion and possible SBR 2) NPO, IV fluids, pain control and possible NGT to wait and see if pain improves. I did talk to her about the fact that surgery may not find anything and even if we do this does not guarantee fixing her symptoms. She wants to try laparoscopy. Risks and complications discussed; not limited to pain, bleeding, infection, scar, damage to bowel and need for further procedure. All questions answered to her satisfaction. Supervisory-Addendum Brief Verification & Attestation Participated in pt care: history, MDM, physical Personally performed: exam, history, MDM Care discussed with: Medical Student Procedures: n/a Verification and Attestation of Medical Student E/M Service A medical student performed and documented this service. I then reviewed and verified all information documented by the medical student and made modifications to such information, when appropriate. I personally performed a physical exam, medical decision making and then discussed any differences between the notes and made revisions as necessary to create one note. Loly Bhatti , 09/19/20 , 11:33 FAMILIA PINEDA MED STUDENT Sep 19, 2020 09:12 LOLY BHATTI DO Sep 19, 2020 11:19
[2020-09-19] MEDS: fentaNYL INJ 100 MCG/2 ML AMP IVP PRN ×4 (09:54→17:28)
[2020-09-19] MEDS ORDERED: LIDOCAINE/EPI 1%-1:100,000 (XYLOCAINE) 20ML ONE (09:57)
[2020-09-19] MEDS ORDERED: PROMETHAZINE INJ 25 MG/ML (PHENERGAN) AMP IVP PRN (10:00)
[2020-09-19] MEDS ORDERED: HYDROmorphone 2 MG/ML VIAL (DILAUDID) IV PRN (10:00)
[2020-09-19] MEDS ORDERED: ONDANSETRON 4 MG/2 ML (SDV) Z0FRAN IVP PRN ×2 (10:00→12:30)
[2020-09-19] MEDS ORDERED: proPOfol 200 MG/20 ML (DIPRIVAN) VIAL IV ONE (10:18)
[2020-09-19] MEDS ORDERED: SEVOFLURANE (ULTANE) 15 ML INHAL SOLN ONE ×4 (10:18→11:54)
[2020-09-19] MEDS ORDERED: LIDOCAINE PF 2% 5 ML (XYLOCAINE) VIAL ONE (10:18)
[2020-09-19] MEDS ORDERED: fentaNYL INJ 100 MCG/2 ML AMP ONE ×2 (10:19→11:34)
[2020-09-19] MEDS ORDERED: MIDAZOLAM 2 MG/2 ML (VERSED) VIAL ONE (10:19)
[2020-09-19] MEDS ORDERED: ROCURONIUM 10 MG/ML 5 ML SYRINGE IV ONE (10:21)
[2020-09-19] MEDS: LACTATED RINGERS 1,000 ML IV SCH ×3 (11:26→23:23)
[2020-09-19] MEDS ORDERED: ceFAZolin INJECTION 2,000 MG ONE (11:30)
[2020-09-19] MEDS ORDERED: ESMOLOL 100 MG/10 ML (BREVIBLOC) VIAL ONE (11:54)
[2020-09-19] MEDS ORDERED: NEOSTIGMINE 3 MG/3 ML VIAL ONE (11:54)
[2020-09-19] MEDS ORDERED: GLYCOPYRROLATE 0.2 MG/ML (ROBINUL) 2 ML VIAL ONE (11:54)
[2020-09-19] MEDS ORDERED: ONDANSETRON 4 MG/2 ML (SDV) Z0FRAN ONE (11:54)
[2020-09-19] MEDS ORDERED: meTOprolol 5 MG/5 ML (LOPRESSOR) VIAL ONE (12:17)
--- NOTE | 2020-09-19 12:30 | Anesthesia-General Post-Op ---
General Patient Condition Mental Status/LOC: Same as Preop Cardiovascular: Satisfactory (Hypertensive, but consistent with baseline) Nausea/Vomiting: Absent Respiratory: Satisfactory Pain: Controlled Complications: Absent Post Op Complications Complications None Follow Up Care/Instructions Patient Instructions None needed. Anesthesia/Patient Condition Patient Condition Patient is doing well, no complaints, stable vital signs, no apparent adverse anesthesia problems. No complications reported per nursing. IRENE EVANS CRNA Sep 19, 2020 12:30
[2020-09-19] MEDS: meTOprolol 5 MG/5 ML (LOPRESSOR) VIAL IVP ONE ×2 (12:43→14:20)
--- NOTE | 2020-09-19 13:40 | Progress Note-Post Operative ---
Post-Operative Progess Note Surgeon (s)/Manager Social (s) Surgeon LOLY BHATTI DO Manager Social: BARRINGTON Mccracken Pre-Operative Diagnosis Intussusception, Intractable nausea vomiting Post-Operative Diagnosis same Procedure & Operative Findings Date of Procedure 09/19/20 Procedure Performed/Findings Diagnostic Laparoscopy Anesthesia Type GET Estimated Blood Loss Estimated blood loss (mL): scant Specimens/Packing Specimens Removed none LOLY BHATTI DO Sep 19, 2020 13:40
[2020-09-19] MEDS ORDERED: PANT40TA52 PO (13:53)
[2020-09-19] MEDS ORDERED: SUCR1TAB PO (13:53)
[2020-09-19] MEDS ORDERED: PROM25TA14 PO (13:53)
[2020-09-19] MEDS: amLODIPine 10 MG (NORVASC) TAB PO SCH (16:15)
[2020-09-19] MEDS: ENALAPRILAT 2.5 MG/2 ML (VASOTEC) VIAL IV PRN (19:34)
[2020-09-20] VITALS: BP 137/82
--- NOTE | 2020-09-20 01:22 | OPERATIVE REPORT ---
DATE OF SERVICE: PREOPERATIVE DIAGNOSES: Intussusception, abdominal pain, intractable nausea and vomiting. POSTOPERATIVE DIAGNOSES: Intussusception, abdominal pain, intractable nausea and vomiting. PROCEDURE: Diagnostic laparoscopy. SURGEON: Mohan Villa, TRANSMISSION INSPECTOR: Maxi Leon, MS3. ANESTHESIA: General endotracheal tube. SPECIMENS: None. BLOOD LOSS: Scant. FLUIDS: Per anesthesia. POSTOPERATIVE CONDITION: Stable. INDICATION FOR PROCEDURE: The patient is a 44-year-old female who has been having intractable nausea and vomiting. First attributed to cannabis hyperemesis, but has not had any THC in over weeks. Continued to have abdominal pain, pain is worse today than it has ever been. Still with nausea, vomiting and on CT showed what looked like an intussusception. FINDINGS: The patient had a little bit of intussusception, but it easily came apart. PROCEDURE NOTE: After informed consent was obtained, the patient was brought to the operating room, placed on the table in supine position. She was sterilely prepped and draped in normal fashion. Local lidocaine was used to infiltrate the skin above the umbilicus. I made an incision with 11 blade, carried down through the skin and subcutaneous tissue, then deepened down to subcutaneous tissue with Bovie electrocautery down to the fascia. Fascia was incised with Bovie electrocautery, then bluntly entered the abdomen, swept a finger around, placed 0 Vicryl [id number] suture and placed limited trocar port under direct visualization. Created pneumoperitoneum, then placed 2 more ports, one in the right lower quadrant, one in the left lower quadrant. Used one in the left lower quadrant to hold the omentum up and could actually see what looked like an area of possible intussusception, pulled on this with a grasper from the other port and pulled out what looked like an area of possible intussusception, took a picture of this, could see above this, there was some dilated small bowel, took a picture of this and then took a picture of the decompressed small bowel, the transverse colon was out of the way. This reduced easily and actually looked like afterwards like the fluid was actually going through past this area, elected not to try to resect this area. I was pretty convinced but not 100%, so elected not to do this and at this point, then removed all ports under direct visualization, allowed the pneumoperitoneum to escape, closed the supraumbilical incision with 0 Vicryl suture previously placed. Copiously irrigated our incisions and closed the incision with 4-0 undyed Monocryl, 3 interrupted subcuticular stitches were used to close the supraumbilical incision and a single interrupted 4-0 undyed Monocryl to close the two 5 mm incisions. Area was cleaned and dried. Dermabond placed as well as a Band-Aid. The patient tolerated the procedure. Sponge, instrument and needle count correct at the end of the case. Job ID: [id number] DocumentID: [id number] Dictated Date: 09/19/2020 16:12:06 Tool Tender Date: 09/20/2020 01:22:02 Dictated By: MOHAN VILLA DO
[2020-09-20 03:52] LABS: BASOPHILS % (AUTO) 0 % (0-10); EOSINOPHILS % (AUTO) 0 % (0-10); HEMATOCRIT 37 % (35-52); HEMOGLOBIN 11.5 g/dL (11.5-16.0); LYMPHOCYTES # (AUTO) 1.9 10^3/uL (1.0-4.0); LYMPHOCYTES % (AUTO) 20 % (12-44); MEAN CORPUSCULAR HEMOGLOBIN 27 pg (25-34); MEAN CORPUSCULAR HGB CONC 31 g/dL (32-36); MEAN CORPUSCULAR VOLUME 87 fL (80-99); MEAN PLATELET VOLUME 9.6 fL (9.0-12.2); MONOCYTES # (AUTO) 0.9 10^3/uL (0.0-1.0); MONOCYTES % (AUTO) 9 % (0-12); NEUTROPHILS % (AUTO) 71 % (42-75); PLATELET COUNT 350 10^3/uL (130-400); WHITE BLOOD COUNT 9.8 10^3/uL (4.3-11.0)
[2020-09-20 03:55] VITALS: BP 168/108
[2020-09-20] MEDS: ENALAPRILAT 2.5 MG/2 ML (VASOTEC) VIAL IV PRN (04:08)
[2020-09-20 05:07] VITALS: BP 154/82
[2020-09-20] MEDS: amLODIPine 10 MG (NORVASC) TAB PO SCH (07:58)
[2020-09-20 08:00] VITALS: BP 176/102
[2020-09-20] MEDS ORDERED: PANTOPRAZOLE 40 MG (PROTONIX) VIAL IV SCH (09:00)
[2020-09-20] MEDS: LACTATED RINGERS 1,000 ML IV SCH (10:00)
--- NOTE | 2020-09-20 10:56 | Progress Note - Surgery ---
FAMILIA PINEDA MED STUDENT 09/20/20 1056: Subjective Date Seen by a Provider: Sep 20, 2020 Time Seen by a Provider: 10:00 Subjective/Events-last exam Maggy reports decreased abdominal pain and nausea since her surgery. She states her nausea is currently absent, and pain is also currently absent. The patient denies SOB, fever, and chills. States she has not yet passed gas or stool. Objective Exam Vital Signs Date Time Temp Pulse Resp B/P (MAP) Pulse Ox O2 Delivery O2 Flow Rate FiO2 09/20/20 08:19 36.7 09/20/20 08:00 96 16 176/102 (126) 94 Room Air 09/20/20 08:00 97 Room Air 09/20/20 05:07 154/82 (106) 09/20/20 03:55 37.3 98 16 168/108 (128) 93 Room Air 09/20/20 00:00 37.3 99 18 137/82 (100) 94 Room Air 09/19/20 22:54 Room Air 09/19/20 21:30 162/88 (112) 09/19/20 20:12 38.0 108 20 186/125 (145) 97 Room Air 09/19/20 20:00 97 Room Air 09/19/20 15:38 37.4 98 22 97 Room Air 09/19/20 13:15 36.5 93 20 167/98 (121) 97 Room Air 09/19/20 13:15 36.7 20 168/98 (121) 96 Room Air 09/19/20 13:15 Room Air 09/19/20 13:10 20 168/99 (122) 96 Room Air 09/19/20 13:00 Room Air 09/19/20 13:00 20 164/102 (122) 96 Room Air 09/19/20 12:50 20 162/104 (123) 100 OxyMask 3 09/19/20 12:45 OxyMask 4 09/19/20 12:40 20 175/104 (127) 100 OxyMask 4 09/19/20 12:30 OxyMask 6 09/19/20 12:30 20 169/111 (130) 100 OxyMask 4 09/19/20 12:20 20 177/101 (126) 100 OxyMask 6 09/19/20 12:14 OxyMask 6 09/19/20 12:14 36.7 20 177/107 (130) 100 OxyMask 6 I & O 09/20/20 07:00 Intake Total 1020 ml Output Total 250 ml Balance 770 ml Capillary Refill : Less Than 3 SecondsLess Than 3 Seconds General Appearance: No Apparent Distress, Obese HEENT: Moist Mucous Membranes; No Pale Conjunctivae (L), No Pale Conjunctivae (R); Other (poor dentition) Neck: Full Range of Motion, Non Tender Respiratory: Chest Non Tender, Lungs Clear, Normal Breath Sounds, No Accessory Muscle Use, No Respiratory Distress Cardiovascular: Regular Rate, Rhythm, No Murmur, Gallop/S4 Gastrointestinal: soft, no organomegaly, tenderness (mild tenderness near incision sites, more severe at midline incision site. laparoscopic incision sites with surrounding ecchymoses but no signs of cellulitis) Extremity: Non Tender, No Pedal Edema Neurologic/Psychiatric: Alert, Oriented x3 Skin: Normal Color, Warm/Dry Lymphatic: No Adenopathy (neck, axilla or groin) Results Lab Laboratory Tests 09/20/20 03:31: White Blood Count 9.8, Red Blood Count 4.24, Hemoglobin 11.5, Hematocrit 37, Mean Corpuscular Volume 87, Mean Corpuscular Hemoglobin 27, Mean Corpuscular Hemoglobin Concent 31L, Red Cell Distribution Width 16.1H, Platelet Count 350, Mean Platelet Volume 9.6, Immature Granulocyte % (Auto) 0, Neutrophils (%) (Auto) 71, Lymphocytes (%) (Auto) 20, Monocytes (%) (Auto) 9, Eosinophils (%) (Auto) 0, Basophils (%) (Auto) 0, Neutrophils # (Auto) 7.0, Lymphocytes # (Auto) 1.9, Monocytes # (Auto) 0.9, Eosinophils # (Auto) 0.0, Basophils # (Auto) 0.0, Immature Granulocyte # (Auto) 0.0 Microbiology 09/19/20 MRSA Screen - Final, Complete MRSA not isolated Assessment/Plan Assessment/Plan Assessment/Plan Intussusception s/p diagnostic laparoscopy without conclusive source of pain identified Intractable N/V Abd pain patient feels her abdominal pain, nausea and vomiting are improved today. She states they are currently absent. The patient is safe to be discharged home as she would not benefit from a further hospital stay at this time. MOHAN VILLA DO 09/20/20 1427: Subjective Time Seen by a Provider: 13:27 Subjective/Events-last exam Pt seen and examined, states she is doing much better and tolerated clears. Review of Systems Pulmonary: No Dyspnea, No Cough Cardiovascular: No: Chest Pain, Palpitations Gastrointestinal: Abdominal Pain (minimal at incisions); No: Nausea, Vomiting Objective Exam General Appearance: No Apparent Distress, Obese HEENT: Moist Mucous Membranes Respiratory: Lungs Clear, Normal Breath Sounds, No Accessory Muscle Use, No Respiratory Distress Cardiovascular: Regular Rate, Rhythm, No Murmur Gastrointestinal: soft, tenderness (mild tenderness near incision sites, more severe at midline incision site. laparoscopic incision sites with surrounding ecchymoses but no signs of cellulitis) Assessment/Plan Assessment/Plan Assessment/Plan Intussusception -s/p diagnostic laparoscopy with possible area of intussusception (which could be source of pain) Intractable N/V - resolved patient feels her abdominal pain, nausea and vomiting are improved today. She states they are currently absent. Supervisory-Addendum Brief Verification & Attestation Participated in pt care: history, MDM, physical Personally performed: exam, history, MDM Care discussed with: Medical Student Procedures: n/a Verification and Attestation of Medical Student E/M Service A medical student performed and documented this service. I then reviewed and verified all information documented by the medical student and made modifications to such information, when appropriate. I personally performed a physical exam, medical decision making and then discussed any differences between the notes and made revisions as necessary to create one note. Mohan Villa , 09/20/20 , 14:27 FAMILIA PINEDA MED STUDENT Sep 20, 2020 10:56 MOHAN VILLA DO Sep 20, 2020 14:27
[2020-09-20] MEDS ORDERED: ACHYD1T PO (13:28)
--- NOTE | 2020-09-20 13:29 | Discharge Inst-Surgical ---
Discharge Inst-Surgical Depart Medication/Instructions New, Converted or Re-Newed RX: RX Given to Pt/Family Patient Instructions Follow up Appt: Make appointment for 1 week. [phone] Instructions: No lifting greater than 20 pounds. No strenuous activity. May shower in 24 hours, no tub bath or soaking. Use incentive spirometer at home as directed. No Smoking Skin/Wound Care: May remove bandages in am. You need to leave the Dermabond on incision it will fall off on it's own. Symptoms to Report: Appetite Changes, Extremity Discoloration, Numbness/Tingling, Swelling Increased, Bleeding Excessive, Eyesight Changes, Pain Increased, Urine Color Change, Constipation(Persistent), Fever over 101 degree F, Pain/Pressure in chest, Urinating Difficulty, Cough Up/Vomit Blood, Heart Beat Irreg/Pounding, Pain/Pressure in jaw, Cramps in feet or legs, Lightheadedness, Pain/Pressure in shoulder, Diarrhea(Persistent), Memory Changes Suddenly, Questions/Concerns, Weight gain consecutive days, Dizziness/Fainting, Nausea/Vomiting, Shortness of Breath, Weight gain over 2 pounds If questions or concerns contact your physician Or seek help at emergency department. Activity Activity as Tolerated: Yes Activity Instructions: Avoid Stress to Incision Driving Instructions: No Driving/Refer to Dr. Diallo Discharge Diet: No Restrictions Diet After 24 Hours: Clear Liquid if Nauseous If Any Problems/Questions/Issu: Contact Your Physician, Go to Emergency Room Skin/Wound Care Infection Signs and Symptoms: Increased Redness, Foul Odor of Wound, Increased Drainage, Skin Itchy or Has a Rash, Increased Swelling, Temperature Above 101 F Bathing Instructions: Shower Stitches/Ben/Dermabond Dis: Dermabond Ice Pack: Ice On and Off Site LOLY BHATTI DO Sep 20, 2020 13:29
== END 2020-09-20 13:45 | disposition home or self-care (01) ==
LOC: EDUNIT# 05:55 → ER 05:57 → SDC 08:20 → CSD 08:20 → UNDOADMOB 08:20 → CSD 09-20 09:45 → UNDODISOB 09-20 13:45 → SDC 09-20 13:45
PROVIDERS: ATTEND Surgery
DX: K56.1 Intussusception (principal); K21.9 Gastro-esophageal reflux disease without esophagitis; E66.01 Morbid (severe) obesity due to excess calories; J45.909 Unspecified asthma, uncomplicated; G40.909 Epilepsy, unspecified, not intractable, without status epilepticus; G89.29 Other chronic pain; I10 Essential (primary) hypertension; K58.9 Irritable bowel syndrome, unspecified; F32.9 Major depressive disorder, single episode, unspecified; F41.9 Anxiety disorder, unspecified; Z88.5 Allergy status to narcotic agent; Z88.6 Allergy status to analgesic agent; Z88.8 Allergy status to other drugs, medicaments and biological substances; Z79.899 Other long term (current) drug therapy; Z90.710 Acquired absence of both cervix and uterus; Z98.51 Tubal ligation status; Z85.41 Personal history of malignant neoplasm of cervix uteri; Z85.038 Personal history of other malignant neoplasm of large intestine; Z68.39 Body mass index [BMI] 39.0-39.9, adult; Z83.3 Family history of diabetes mellitus
CPT/HCPCS: 36415; 74177; 80053; 83690; 85025; 86141; 87081; 96361; 96374; 96375; 96376

== ENCOUNTER 2020-09-25 14:42 | Emergency (ER) | payer SELFPAY ==
[~2020-09-25] VITALS: Ht 165 cm; Wt 92.3 kg
[~2020-09-25 14:42] MED LIST changes: +ACHYD1T PO
[2020-09-25] MEDS ORDERED: LACTATED RINGERS 1,000 ML IV SCH (15:00)
[2020-09-25 15:14] LABS: BASOPHILS % (AUTO) 0 % (0-10); EOSINOPHILS # (AUTO) 0.1 10^3/uL (0.0-0.3); EOSINOPHILS % (AUTO) 1 % (0-10); HEMATOCRIT 50 % (35-52); HEMOGLOBIN 16.1 g/dL (11.5-16.0); LYMPHOCYTES # (AUTO) 2.4 X 10^3 (1.0-4.0); LYMPHOCYTES % (AUTO) 25 % (12-44); MEAN CORPUSCULAR HEMOGLOBIN 27 pg (25-34); MEAN CORPUSCULAR HGB CONC 32 g/dL (32-36); MEAN CORPUSCULAR VOLUME 84 fL (80-99); MEAN PLATELET VOLUME 9.5 fL (9.0-12.2); MONOCYTES # (AUTO) 0.9 X 10^3 (0.0-1.0); MONOCYTES % (AUTO) 10 % (0-12); NEUTROPHILS # (AUTO) 6.2 X 10^3 (1.8-7.8); NEUTROPHILS % (AUTO) 65 % (42-75); PLATELET COUNT 543 10^3/uL (130-400); WHITE BLOOD COUNT 9.6 10^3/uL (4.3-11.0)
[2020-09-25] MEDS ORDERED: HALOPERIDOL 5 MG/ML (HALDOL) VIAL IM ONE (15:15)
[2020-09-25] MEDS ORDERED: fentaNYL INJ 100 MCG/2 ML AMP IVP ONE ×2 (15:15→16:30)
[2020-09-25] MEDS ORDERED: diphenhydrAMINE 50 MG/ML INJ (BENADRYL) IVP ONE (15:15)
--- NOTE | 2020-09-25 15:18 | ED GI ---
General Chief Complaint: Abdominal/GI Problems Stated Complaint: POST OP/VOMITING/STOMACH PAIN Nursing Triage Note: c/o NAUSEA AND VOMITING X2 DAYS. STATES SHE HAD "SURGERY ON BOWEL" BY DR. BHATTI ON Saturday09/20/20 Sepsis Screen: No Definite Risk Source of Information: Patient Exam Limitations: No Limitations History of Present Illness Date Seen by Provider: Sep 25, 2020 Time Seen by Provider: 14:59 Initial Comments This is a well-appearing 44-year-old female who presents to the ER via POV with complaints of nausea and vomiting x2 days. States that she had a recent bowel surgery by Dr. Bhatti on September 19. Reports feeling much improved the day after surgery however she has progressively had worsening nausea and vomiting. States she vomited 3 times yesterday but was still able to drink and eat some. Today she woke up and her vomiting was more severe with 4 episodes within the past hour. Has history of hyperemesis cannabinoid but she denies eating any items with THC and smoking any marijuana. States that nobody smokes marijuana around her either. States that her abdominal pain started after her extensive vomiting. Denies fever, chills, cough, shortness of breath. Allergies and Home Medications Allergies Coded Allergies: morphine (Verified Allergy, Unknown, CAUSES "REBOUND HEADACHES", 08/29/20) PT HAS RECEIVED LORTAB & OXYCODONE IN THE PAST baclofen (Verified Adverse Reaction, Severe, 06/13/15) PATIENT UNAWARE OF REACTION BUT WAS HOSPITALIZED AFTER TAKING MEDICATION AND WAS TOLD IT WAS A REACTION DUE TO THE MEDICATION SHE TOOK. meloxicam (Verified Adverse Reaction, Severe, 06/13/15) PATIENT UNAWARE OF REACTION BUT WAS HOSPITALIZED AFTER TAKING MEDICATION AND WAS TOLD IT WAS A REACTION DUE TO THE MEDICATION SHE TOOK. NSAIDS (Non-Steroidal Anti-Inflamma (Verified Adverse Reaction, Mild, have IBS and avoid NSAIDS, 12/04/12) Home Medications Amlodipine Besylate 10 Mg Tablet, 10 MG PO DAILY, (Reported) Diphenhydramine HCl 25 Mg Capsule, 25-50 MG PO Q6H PRN for ALLERGY SYMPTOMS, (Reported) Hydrocodone Bit/Acetaminophen 1 Ea Tab, 1 EA PO Q4H PRN for PAIN-MODERATE (5-7) Prescribed by: LOLY BHATTI on 09/20/20 1328 Hyoscyamine Sulfate 0.125 Mg Tab.subl, 0.125 MG SL TID PRN for STOMACH SPASMS, (Reported) Ondansetron 4 Mg Tab.rapdis, 4 MG PO Q4H PRN for NAUSEA/VOMITING-1ST LINE, (Reported) Pantoprazole Sodium 40 Mg Tablet.dr, 40 MG PO DAILY, (Reported) Propranolol HCl 80 Mg Tablet, 80 MG PO TID, (Reported) Sucralfate 1 Gm Tablet, 1 GM PO QID, (Reported) Sumatriptan Succinate 100 Mg Tablet, 100 MG PO DAILY PRN for MIGRAINE, (Reported) Tizanidine HCl 4 Mg Tablet, 4 MG PO TID PRN for MUSCLE SPASMS, (Reported) Patient Home Medication List Home Medication List Reviewed: Yes Review of Systems Review of Systems Constitutional: see HPI EENTM: No Symptoms Reported Respiratory: No Symptoms Reported Cardiovascular: No Symptoms Reported Gastrointestinal: See HPI Genitourinary: No Symptoms Reported Musculoskeletal: no symptoms reported Skin: no symptoms reported Psychiatric/Neurological: No Symptoms Reported Endocrine: No Symptoms Reported Hematologic/Lymphatic: No Symptoms Reported Past Oxabbjl-Citqgr-Mrvmou Hx Patient Social History Alcohol Use: Denies Use Drug of Choice: MARIJUANA Smoking Status: Never a Smoker 2nd Hand Smoke Exposure: No Recent Infectious Disease Expo: No Recent Hopitalizations: Yes (SX SBO 09/20/20) Immunizations Up To Date Tetanus Booster (TDap): Unknown PED Vaccines UTD: No Date of Pneumonia Vaccine: Mar 03, 2014 Date of Influenza Vaccine: Mar 03, 2015 Seasonal Allergies Seasonal Allergies: No Past Medical History Surgeries: Yes (EGD and colonoscopy) Bladder Surgery, Gallbladder, 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, Oophorectomy, Tubal Ligation Respiratory: No Asthma Currently Using CPAP: No Currently Using BIPAP: No Cardiac: No Hypertension, Syncope Neurological: No Seizure Disorder 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 Disorders: Yes (HYST 2005--NO PHYSICIAN DOCUMENTATION OF ANY KIND OF CANCER) 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 Disorders: 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 Sexually Transmitted Disease: Yes (HPV) HIV/AIDS: No Genitourinary: No Bladder Infection Gastrointestinal: Yes Gastroesophageal Reflux, Pancreatitis, Irritable Bowel Musculoskeletal: No Chronic Back Pain Endocrine: No HEENT: Yes (poor dentition) Loss of Vision: Denies Hearing Impairment: Denies Cancer: No Cervical, Colon Psychosocial: Yes Anxiety, Depression Integumentary: No Blood Disorders: No Adverse Reaction/Blood Tranf: No Family Medical History Diabetes mellitus 19 FATHER FHx: brain tumor 19 MOTHER HPV infection G8 SISTER No Family History of: AIDS Abdominal aortic aneurysm Madi's disease Alcoholism Alzheimer's disease Aphasia Arthritis Asthma Cancer of mouth Cardiovascular disease Cataracts Colon cancer Completed stroke Congenital disease Congenital heart disease Coronary thrombosis Cystic fibrosis Deafness or hearing loss Dementia Drug abuse Dysphasia Fibrocystic disease of breast Gastroenteritis Glaucoma Headache disorder Hypercholesterolemia Hypertension Infertility Kidney disease Myocardial infarction Neoplasm Not obtainable due to adoption Osteoporosis Parkinson's disease Prostate cancer Psychosocial problem Respiratory disorder Seizure disorder Severe allergy Thyroid disease Tuberculosis Visual disorder Heart Disease, Hypertension, Other Conditions/Hx Physical Exam Vital Signs Vital Signs - First Documented 09/25/20 15:08 Temp 36.4 Pulse 135 Resp 16 B/P (MAP) 117/74 (88) Pulse Ox 97 O2 Delivery Room Air Capillary Refill : Less Than 3 Seconds Height/Weight/BMI Height: 5'6.00" Weight: 203lbs. 6.4oz. 92.542209ht; 33.00 BMI Method:Stated General Appearance: WD/WN, no apparent distress HEENT: PERRL/EOMI, normal ENT inspection Neck: full range of motion, normal inspection Respiratory: lungs clear, normal breath sounds Cardiovascular: regular rate, rhythm, no murmur Gastrointestinal: normal bowel sounds, soft, tenderness (generalized ) Extremities: normal range of motion, non-tender, normal inspection Neurologic/Psychiatric: no motor/sensory deficits, alert, normal mood/affect, oriented x 3 Skin: normal color, warm/dry, other (3 abd lap incisions free of erythema/s welling/drainage. ) Progress/Results/Core Measures Results/Orders Lab Results Laboratory Tests Test 09/25/20 15:00 Range/Units White Blood Count 9.6 4.3-11.0 10^3/uL Red Blood Count 5.94 H 3.80-5.11 10^6/uL Hemoglobin 16.1 H 11.5-16.0 g/dL Hematocrit 50 35-52 % Mean Corpuscular Volume 84 80-99 fL Mean Corpuscular Hemoglobin 27 25-34 pg Mean Corpuscular Hemoglobin Concent 32 32-36 g/dL Red Cell Distribution Width 15.5 H 10.0-14.5 % Platelet Count 543 H 130-400 10^3/uL Mean Platelet Volume 9.5 9.0-12.2 fL Immature Granulocyte % (Auto) 0 % Neutrophils (%) (Auto) 65 42-75 % Lymphocytes (%) (Auto) 25 12-44 % Monocytes (%) (Auto) 10 0-12 % Eosinophils (%) (Auto) 1 0-10 % Basophils (%) (Auto) 0 0-10 % Neutrophils # (Auto) 6.2 1.8-7.8 X 10^3 Lymphocytes # (Auto) 2.4 1.0-4.0 X 10^3 Monocytes # (Auto) 0.9 0.0-1.0 X 10^3 Eosinophils # (Auto) 0.1 0.0-0.3 10^3/uL Basophils # (Auto) 0.0 0.0-0.1 10^3/uL Immature Granulocyte # (Auto) 0.0 0.0-0.1 10^3/uL Sodium Level 136 135-145 MMOL/L Potassium Level 3.6 3.6-5.0 MMOL/L Chloride Level 91 L 98-107 MMOL/L Carbon Dioxide Level 24 21-32 MMOL/L Anion Gap 21 H 5-14 MMOL/L Blood Urea Nitrogen 19 H 7-18 MG/DL Creatinine 0.91 0.60-1.30 MG/DL Estimat Glomerular Filtration Rate > 60 BUN/Creatinine Ratio 21 Glucose Level 127 H 70-105 MG/DL Calcium Level 11.1 H 8.5-10.1 MG/DL Corrected Calcium 8.5-10.1 MG/DL Total Bilirubin 0.6 0.1-1.0 MG/DL Aspartate Amino Transf (AST/SGOT) 41 H 5-34 U/L Alanine Aminotransferase (ALT/SGPT) 45 0-55 U/L Alkaline Phosphatase 94 40-136 U/L Total Protein 9.3 H 6.4-8.2 GM/DL Albumin 5.0 H 3.2-4.5 GM/DL My Orders Orders - LYN LUND APRN Ed Iv/Invasive Line Start (09/25/20 14:59) Lactated Ringers (Lr 1000 Ml Iv Solution (09/25/20 15:00) Cbc With Automated Diff (09/25/20 14:59) Comprehensive Metabolic Panel (09/25/20 14:59) Urinalysis (09/25/20 14:59) Diphenhydramine Injection (Benadryl Inje (09/25/20 15:15) Haloperidol Injection (Haldol Injectio (09/25/20 15:15) Ct Abdomen/Pelvis W (09/25/20 15:10) Fentanyl Inj (Sublimaze Injection) (09/25/20 15:15) Lactated Ringers (Lr 1000 Ml Iv Solution (09/25/20 15:45) Iohexol Injection (Omnipaque 350 Mg/Ml 1 (09/25/20 16:00) Received Contrast (Hold Metformin- Contr (09/25/20 16:00) Sodium Chloride Flush (Catheter Flush Sy (09/25/20 16:00) Ns (Ivpb) (Sodium Chloride 0.9% Ivpb Bag (09/25/20 16:00) Fentanyl Inj (Sublimaze Injection) (09/25/20 16:30) Medications Given in ED Current Medications Medications Dose Ordered Sig/Judi Route Start Time Stop Time Status Last Admin Dose Admin Diphenhydramine HCl 25 mg ONCE ONCE IVP 09/25/20 15:15 09/25/20 15:16 DC 09/25/20 15:19 25 MG Fentanyl Citrate 50 mcg ONCE ONCE IVP 09/25/20 15:15 09/25/20 15:16 DC 09/25/20 15:20 50 MCG Fentanyl Citrate 50 mcg ONCE ONCE IVP 09/25/20 16:30 09/25/20 16:31 DC 09/25/20 16:23 50 MCG Haloperidol Lactate 5 mg ONCE ONCE IM 09/25/20 15:15 09/25/20 15:16 DC 09/25/20 15:19 5 MG Iohexol 100 ml ONCE ONCE IV 09/25/20 16:00 09/25/20 16:01 DC 09/25/20 15:59 100 ML Lactated Ringer's 1,000 ml @ 0 mls/hr Q0M ONCE IV 09/25/20 15:45 09/25/20 15:46 DC 09/25/20 16:23 999 MLS/HR Sodium Chloride 100 ml ONCE ONCE IV 09/25/20 16:00 09/25/20 16:01 DC 09/25/20 15:59 80 ML Vital Signs/I&O 09/25/20 09/25/20 09/25/20 14:56 15:08 16:46 Temp 36.4 36.7 Pulse 135 103 Resp 16 16 B/P (MAP) 117/74 (88) 144/89 Pulse Ox 97 100 O2 Delivery Room Air Room Air Blood Pressure Mean: 88 Progress Progress Note : Progress Note Patient examined in no acute distress. States that she has not smoked any marijuana nor has anybody smoked around her however she is noted to smell very strongly of marijuana. States Haldol and Benadryl worked very well to control her nausea and vomiting. Orders placed for Haldol 5 mg IM and Benadryl 25 mg IV push. Will give a liter of LR. Orders placed for basic labs and CT of abdomen/pelvis. No acute findings identified. Her nausea and vomiting were well controlled with antiemetics and 2 L of crystalloids. States she feels much improved. Reviewed discharge plan of care and she is agreeable with discharge plan. No concerns voiced. Diagnostic Imaging Diagonstic Imaging: CT Plain Films/CT/US/NM/MRI: abdomen Comments NAME: DORIAN BROWN [facility] REC#: [id number] PT STATUS: REG ER : 1975 PHYSICIAN: LYN LUND INSTRUCTOR DANCING ADMIT DATE: 09/25/20/ER Signed Date of Exam:09/25/20 CT ABDOMEN/PELVIS W PROCEDURE: CT abdomen and pelvis with contrast. TECHNIQUE: Multiple contiguous axial images were obtained through the abdomen and pelvis after administration of intravenous contrast. Auto Exposure Controls were utilized during the CT exam to meet ALARA standards for radiation dose reduction. All CT scans use one or more of the following dose optimizing techniques: automated exposure control, MA and/or KvP adjustment based on patient size and exam type or iterative reconstruction. INDICATION: Abdominal pain post surgery, nausea, vomiting. COMPARISON: 09/19/2020. FINDINGS: The visualized lung bases are clear. Cholecystectomy. The liver and spleen are unremarkable. The adrenal glands are unremarkable. The pancreas is unremarkable. Tiny duodenal diverticulum arising from the 2nd portion of the duodenum without adjacent fat stranding. The kidneys are unremarkable without evidence of hydronephrosis. No aneurysmal dilatation of the abdominal aorta. Previously noted small bowel intussusception is no longer visualized. Interval postsurgical changes associated with the abdomen with inflammatory stranding noted involving the skin and subcutaneous tissues of the abdomen, particularly within the supraumbilical region without focal fluid collection. The urinary bladder is decompressed. The uterus is not visualized, likely surgically absent. No abnormal adnexal mass lesion. Scattered regions of mural thickening are identified associated with the ascending colon, transverse colon, descending colon and sigmoid colon. There is, however, no significant adjacent inflammatory stranding and these regions are poorly distended. No evidence of bowel obstruction. No significant adenopathy, free air or free fluid within the abdomen or pelvis. No acute osseous abnormality. IMPRESSION: 1. Interval postsurgical changes within the abdomen with previously noted small bowel intussusception no longer visualized. No evidence of bowel obstruction. 2. Scattered regions of mural thickening associated with the colon, favored to relate to poor distention, though mild colitis would be an additional consideration. 3. Additional findings as described above. Dictated by: Dictated on workstation # [id number] Dict: 09/25/20 1605 Trans: 09/25/20 1618 PJE [id number] Interpreted by: SÁNCHEZ SILVESTRE MD Electronically signed by: SÁNCHEZ SILVESTRE MD 09/25/20 1618 Reviewed: Reviewed by Me Departure Impression Primary Impression: Nausea and vomiting Disposition: 01 HOME, SELF-CARE Condition: Improved Departure-Patient Inst. Decision time for Depature: 16:24 Referrals: [facility] [place]) Primary Care Physician AUDREY ELIZABETH (Family) Primary Care Physician Patient Instructions: Nausea and Vomiting, Adult Add. Discharge Instructions: Plan: 1. Discharge home. 2. Take Zofran and Benadryl as directed for nausea/vomiting. 3. Drink clear liquids today and advance diet slowly as tolerated. 4. Keep follow up with Dr. Bhatti as directed. 5. Return for any new or worsening symptoms. All discharge instructions reviewed with patient and/or family. Voiced understanding. LYN LUND INSTRUCTOR DANCING Sep 25, 2020 15:18
[2020-09-25 15:26] LABS: ALANINE AMINOTRANSFERASE 45 U/L (0-55); ALKALINE PHOSPHATASE 94 U/L (40-136); BILIRUBIN,TOTAL 0.6 MG/DL (0.1-1.0); BUN/CREATININE RATIO 21; CALCIUM 11.1 MG/DL (8.5-10.1); CARBON DIOXIDE 24 MMOL/L (21-32); CHLORIDE 91 MMOL/L (98-107); CREATININE SERUM 0.91 MG/DL (0.60-1.30); GFR ESTIMATED > 60; GLUCOSE 127 MG/DL (70-105); POTASSIUM 3.6 MMOL/L (3.6-5.0); SODIUM 136 MMOL/L (135-145); TOTAL PROTEIN 9.3 GM/DL (6.4-8.2)
[2020-09-25] MEDS ORDERED: LACTATED RINGERS 1,000 ML IV ONE (15:45)
[2020-09-25] MEDS ORDERED: IOHEXOL 350 MG/ML 100 ML (OMNIPAQUE 350) VIAL IV ONE (16:00)
[2020-09-25] MEDS ORDERED: NS 100 ML (IVPB) BAG IV ONE (16:00)
[2020-09-25] MEDS ORDERED: CATHETER FLUSH 10 ML SYR IV PRN (16:00)
[2020-09-25] MEDS ORDERED: HOLD METFORMIN - RECEIVED CONTRAST 20 ML VIAL IV SCH (16:00)
--- NOTE | 2020-09-25 16:20 | Diagnostic Imaging Report ---
PROCEDURE: CT abdomen and pelvis with contrast. TECHNIQUE: Multiple contiguous axial images were obtained through the abdomen and pelvis after administration of intravenous contrast. Auto Exposure Controls were utilized during the CT exam to meet ALARA standards for radiation dose reduction. All CT scans use one or more of the following dose optimizing techniques: automated exposure control, MA and/or KvP adjustment based on patient size and exam type or iterative reconstruction. INDICATION: Abdominal pain post surgery, nausea, vomiting. COMPARISON: 09/19/2020. FINDINGS: The visualized lung bases are clear. Cholecystectomy. The liver and spleen are unremarkable. The adrenal glands are unremarkable. The pancreas is unremarkable. Tiny duodenal diverticulum arising from the 2nd portion of the duodenum without adjacent fat stranding. The kidneys are unremarkable without evidence of hydronephrosis. No aneurysmal dilatation of the abdominal aorta. Previously noted small bowel intussusception is no longer visualized. Interval postsurgical changes associated with the abdomen with inflammatory stranding noted involving the skin and subcutaneous tissues of the abdomen, particularly within the supraumbilical region without focal fluid collection. The urinary bladder is decompressed. The uterus is not visualized, likely surgically absent. No abnormal adnexal mass lesion. Scattered regions of mural thickening are identified associated with the ascending colon, transverse colon, descending colon and sigmoid colon. There is, however, no significant adjacent inflammatory stranding and these regions are poorly distended. No evidence of bowel obstruction. No significant adenopathy, free air or free fluid within the abdomen or pelvis. No acute osseous abnormality. IMPRESSION: 1. Interval postsurgical changes within the abdomen with previously noted small bowel intussusception no longer visualized. No evidence of bowel obstruction. 2. Scattered regions of mural thickening associated with the colon, favored to relate to poor distention, though mild colitis would be an additional consideration. 3. Additional findings as described above. Dictated by: Dictated on workstation # [id number]
[2020-09-25 16:46] VITALS: BP 144/89
== END 2020-09-25 16:46 | disposition home or self-care (01) ==
LOC: EDUNIT# 14:42 → ER 14:43
DX: R11.2 Nausea with vomiting, unspecified (principal); J45.909 Unspecified asthma, uncomplicated; I10 Essential (primary) hypertension; K21.9 Gastro-esophageal reflux disease without esophagitis; G89.29 Other chronic pain; M54.9 Dorsalgia, unspecified; Z88.5 Allergy status to narcotic agent; Z88.6 Allergy status to analgesic agent; Z88.8 Allergy status to other drugs, medicaments and biological substances; Z79.891 Long term (current) use of opiate analgesic
CPT/HCPCS: 36415; 74177; 80053; 85025

== ENCOUNTER 2020-10-15 21:40 | Emergency (ER) | payer SELFPAY ==
[~2020-10-15] VITALS: Ht 167.7 cm; Wt 92.0 kg
[2020-10-15] MEDS ORDERED: ONDANSETRON 4 MG/2 ML (SDV) Z0FRAN ONE (22:20)
[2020-10-15 22:55] LABS: BASOPHILS % (AUTO) 0 % (0-10); EOSINOPHILS # (AUTO) 0.1 10^3/uL (0.0-0.3); EOSINOPHILS % (AUTO) 1 % (0-10); MEAN CORPUSCULAR HEMOGLOBIN 27 pg (25-34)
[2020-10-15 22:57] LABS: HEMATOCRIT 40 % (35-52); HEMOGLOBIN 12.5 g/dL (11.5-16.0); LYMPHOCYTES # (AUTO) 2.2 10^3/uL (1.0-4.0); LYMPHOCYTES % (AUTO) 26 % (12-44); MEAN CORPUSCULAR HGB CONC 32 g/dL (32-36); MEAN CORPUSCULAR VOLUME 86 fL (80-99); MEAN PLATELET VOLUME 9.9 fL (9.0-12.2); MONOCYTES # (AUTO) 0.8 10^3/uL (0.0-1.0); MONOCYTES % (AUTO) 9 % (0-12); NEUTROPHILS # (AUTO) 5.6 10^3/uL (1.8-7.8); NEUTROPHILS % (AUTO) 64 % (42-75); PLATELET COUNT 260 10^3/uL (130-400); WHITE BLOOD COUNT 8.8 10^3/uL (4.3-11.0)
[2020-10-15] MEDS ORDERED: PROMETHAZINE INJ 25 MG/ML (PHENERGAN) AMP IVP ONE ×2 (23:00→23:30)
[2020-10-15] MEDS ORDERED: LACTATED RINGERS 1,000 ML IV ONE (23:00)
[2020-10-15] MEDS ORDERED: diphenhydrAMINE 50 MG/ML INJ (BENADRYL) IVP ONE ×2 (23:00→23:30)
[2020-10-15] MEDS ORDERED: SCOPOLAMINE 1.5 MG (TRANSDERM-SCOP) PATCH TD ONE (23:00)
[2020-10-15 23:02] LABS: BILIRUBIN,URINE NEGATIVE (NEGATIVE); CLARITY,URINE CLEAR; COLOR,URINE YELLOW; GLUCOSE, URINE (UA) NEGATIVE (NEGATIVE); KETONES,URINE NEGATIVE (NEGATIVE); LEUKOCYTE ESTERASE ,URINE TRACE (NEGATIVE); NITRITE,URINE NEGATIVE (NEGATIVE); PROTEIN,URINE NEGATIVE (NEGATIVE)
[2020-10-15 23:06] LABS: ALBUMIN 4.2 GM/DL (3.2-4.5)
[2020-10-15 23:07] LABS: AMYLASE 25 U/L (25-125); CHLORIDE 102 MMOL/L (98-107); POTASSIUM 3.3 MMOL/L (3.6-5.0); SODIUM 143 MMOL/L (135-145)
[2020-10-15 23:08] LABS: CALCIUM 9.9 MG/DL (8.5-10.1)
[2020-10-15 23:08] LABS: BACTERIA,URINE TRACE /HPF
[2020-10-15 23:09] LABS: GLUCOSE 122 MG/DL (70-105); TOTAL PROTEIN 7.6 GM/DL (6.4-8.2)
[2020-10-15 23:10] LABS: CARBON DIOXIDE 26 MMOL/L (21-32)
[2020-10-15 23:11] LABS: BILIRUBIN,TOTAL 0.3 MG/DL (0.1-1.0)
[2020-10-15 23:12] LABS: AMPHETAMINE SCREEN, URINE NEGATIVE (NEGATIVE); BARBITURATE SCREEN URINE NEGATIVE (NEGATIVE); BENZODIAZEPINES SCREEN URINE NEGATIVE (NEGATIVE); CANNABINOID SCREEN, URINE NEGATIVE (NEGATIVE); COCAINE SCREEN URINE NEGATIVE (NEGATIVE); METHADONE STAT NEGATIVE (NEGATIVE); METHAMPHETAMINE SCREEN URINE S NEGATIVE (NEGATIVE); OPIATE SCREEN URINE NEGATIVE (NEGATIVE); OXYCODONE STAT NEGATIVE (NEGATIVE); PROPOXYPHENE STAT NEGATIVE (NEGATIVE); TRICYCLIC ANTIDEPRESSANTS SCRE POSITIVE (NEGATIVE)
[2020-10-15 23:12] LABS: ALKALINE PHOSPHATASE 82 U/L (40-136)
[2020-10-15 23:13] LABS: GFR ESTIMATED > 60
[2020-10-15 23:14] LABS: BUN/CREATININE RATIO 8
[2020-10-15 23:16] LABS: ALANINE AMINOTRANSFERASE 31 U/L (0-55); LIPASE 56 U/L (8-78)
[2020-10-16] MEDS ORDERED: CIPROFLOXACIN 500 MG (CIPRO) TABLET PO SCH (01:30)
[2020-10-16] MEDS ORDERED: PANTOPRAZOLE 40 MG (PROTONIX) VIAL IV ONE (01:30)
[2020-10-16] MEDS ORDERED: HYOSCYAMINE 0.125 MG (LEVSIN) TAB PO ONE (01:30)
[2020-10-16] MEDS ORDERED: metroNIDAZOLE 500 MG (FLAGYL) TAB PO ONE (01:30)
[2020-10-16] MEDS ORDERED: PANT40TA2 PO (01:32)
[2020-10-16] MEDS ORDERED: HYOS0.1283 SL (01:32)
[2020-10-16] MEDS ORDERED: ONDA8TAB13 PO (01:32)
[2020-10-16] MEDS ORDERED: DICY20TA10 PO (01:32)
[2020-10-16] MEDS ORDERED: PROM25SU44 RC (01:32)
[2020-10-16] MEDS ORDERED: CIPR500T5 PO (01:32)
[2020-10-16] MEDS ORDERED: METR500T PO (01:32)
--- NOTE | 2020-10-16 01:32 | ED GI ---
General Chief Complaint: Abdominal/GI Problems Stated Complaint: N/V Source of Information: Patient, Old Records History of Present Illness Date Seen by Provider: October 15, 2020 Time Seen by Provider: 22:45 Initial Comments PT ARRIVES VIA POV FROM HOME] C/O NAUSEA/VOMITING AND GENERALIZED ABDOMINAL PAIN SINCE 1300 TODAY--BEGAN WHILE SHE WAS AT WORK AT [employer] PT UNABLE TO STATE HOW MANY TIMES SHE HAS VOMITED--MOSTLY DRY HEAVES, WITH SOME BILE NO DIARRHEA. HAD NORMAL BM TODAY NO URINARY SYMPTOMS. 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 PT HAS HAD 8 VISITS IN 2020 FOR THIS EXACT SAME COMPLAINT ADDITIONALLY, PT HAD LAPAROSCOPY 09/19/[address] BHATTI. PT STATES SHE FOLLOWED UP WITH HIM AFTER SURGERY, AND HAS BEEN RELEASED. PT ALSO HERE IN ER 09/25/20 FOR THIS COMPLAINT OF NAUSEA/VOMITING/ABDOMINAL PAIN PT ALSO HAD EGD/COLONOSCOPY 08/24/20 FOR THIS PROBLEM, DX WITH GASTRITIS/ESOPHAGITIS. DENIES ANY OTHER COVID-19 SYMPTOMS DENIES ANY KNOWN SICK CONTACTS OR KNOWN COVID-19 EXPOSURE HAS NOT HAD COVID-19 VACCINATION PCP; [facility]. Allergies and Home Medications Allergies Coded Allergies: morphine (Verified Allergy, Unknown, CAUSES "REBOUND HEADACHES", 08/29/20) PT HAS RECEIVED LORTAB & OXYCODONE IN THE PAST baclofen (Verified Adverse Reaction, Severe, 06/13/15) PATIENT UNAWARE OF REACTION BUT WAS HOSPITALIZED AFTER TAKING MEDICATION AND WAS TOLD IT WAS A REACTION DUE TO THE MEDICATION SHE TOOK. meloxicam (Verified Adverse Reaction, Severe, 06/13/15) PATIENT UNAWARE OF REACTION BUT WAS HOSPITALIZED AFTER TAKING MEDICATION AND WAS TOLD IT WAS A REACTION DUE TO THE MEDICATION SHE TOOK. NSAIDS (Non-Steroidal Anti-Inflamma (Verified Adverse Reaction, Mild, have IBS and avoid NSAIDS, 12/04/12) Home Medications Amlodipine Besylate 10 Mg Tablet, 10 MG PO DAILY, (Reported) Ciprofloxacin HCl 500 Mg Tablet, 500 MG PO BID Prescribed by: CHANTEL MAYORGA on 10/16/20131 Dicyclomine HCl 20 Mg Tablet, 20 MG PO Q6H Prescribed by: CHANTEL MAYORGA on 10/16/20131 Diphenhydramine HCl 25 Mg Capsule, 25-50 MG PO Q6H PRN for ALLERGY SYMPTOMS, (Reported) Hydrocodone Bit/Acetaminophen 1 Ea Tab, 1 EA PO Q4H PRN for PAIN-MODERATE (5-7) Prescribed by: LOLY BHATTI on 09/20/20 1328 Hyoscyamine Sulfate 0.125 Mg Tab.subl, 0.125 MG SL TID PRN for STOMACH SPASMS, (Reported) Hyoscyamine Sulfate 0.125 Mg Tab.subl, 0.25 MG SL Q4H Prescribed by: CHANTEL MAYORGA on 10/16/20131 Metronidazole 500 Mg Tablet, 500 MG PO QID Prescribed by: CHANTEL MAYORGA on 10/16/20131 Ondansetron 4 Mg Tab.rapdis, 4 MG PO Q4H PRN for NAUSEA/VOMITING-1ST LINE, (Reported) Ondansetron 8 Mg Tab.rapdis, 8 MG PO Q6H Prescribed by: CHANTEL MAYORGA on 10/16/20131 Pantoprazole Sodium 40 Mg Tablet.dr, 40 MG PO DAILY, (Reported) Pantoprazole Sodium 40 Mg Tablet.dr, 40 MG PO DAILY Prescribed by: CHANTEL MAYORGA on 10/16/20131 Promethazine HCl 25 Mg Supp.rect, 25 MG RC Q6 Prescribed by: CHANTEL MAYORGA on 10/16/20131 Propranolol HCl 80 Mg Tablet, 80 MG PO TID, (Reported) Sucralfate 1 Gm Tablet, 1 GM PO QID, (Reported) Sumatriptan Succinate 100 Mg Tablet, 100 MG PO DAILY PRN for MIGRAINE, (Reported) Tizanidine HCl 4 Mg Tablet, 4 MG PO TID PRN for MUSCLE SPASMS, (Reported) Patient Home Medication List Home Medication List Reviewed: Yes Review of Systems Review of Systems Constitutional: no symptoms reported; No chills, No dizziness, No fever Respiratory: No Symptoms Reported Cardiovascular: No Symptoms Reported Gastrointestinal: See HPI, Abdominal Pain; Denies Constipated, Denies Diarrhea; Nausea, Vomiting Genitourinary: No Symptoms Reported Musculoskeletal: no symptoms reported Skin: no symptoms reported Psychiatric/Neurological: No Symptoms Reported Endocrine: No Symptoms Reported Hematologic/Lymphatic: No Symptoms Reported Past Qptkecu-Spsgev-Ciobww Hx Past Med/Social Hx: Reviewed and Corrections made Patient Social History Drug of Choice: MARIJUANA 2nd Hand Smoke Exposure: No Recent Hopitalizations: Yes (09/19/20 FOR INTUSSCEPTION) Immunizations Up To Date Tetanus Booster (TDap): Unknown PED Vaccines UTD: No Date of Pneumonia Vaccine: Mar 03, 2014 Date of Influenza Vaccine: Mar 03, 2015 Seasonal Allergies Seasonal Allergies: No Past Medical History Surgeries: Yes (EGD/COLONOSCOPY; LAPAROSCOPY) Abdominal, Bladder Surgery, Cardiac, Gallbladder, 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, Oophorectomy, Tubal Ligation Respiratory: Yes Asthma Currently Using CPAP: No Currently Using BIPAP: No Cardiac: Yes (BRADYCARDIA 2012) Hypertension, Syncope Neurological: Yes ("SEIZURES WITH LOW BLOOD PRESSURE" TX WITH PROPRANOLOL, PER PT) Seizure Disorder 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 Disorders: Yes (HYST 2005--NO PHYSICIAN DOCUMENTATION OF ANY KIND OF CANCER) 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 Sexually Transmitted Disease: Yes (HPV) HIV/AIDS: No Genitourinary: Yes Bladder Infection Gastrointestinal: Yes (CHRONIC N/V/ABD PAIN; CANNIBUS HYPEREMESIS) Gastroesophageal Reflux, Pancreatitis, Irritable Bowel Musculoskeletal: Yes Chronic Back Pain Endocrine: No HEENT: Yes (POOR DENTITION) Loss of Vision: Denies Hearing Impairment: Denies Cancer: No (NO PHYSICAN DOCUMENTAION/VERIFICATION OF ANY KIND OF CANCER) Psychosocial: Yes (THC USE) Anxiety, Depression Integumentary: No Blood Disorders: No Adverse Reaction/Blood Tranf: No Family Medical History Diabetes mellitus 19 FATHER FHx: brain tumor 19 MOTHER HPV infection G8 SISTER No Family History of: AIDS Abdominal aortic aneurysm Madi's disease Alcoholism Alzheimer's disease Aphasia Arthritis Asthma Cancer of mouth Cardiovascular disease Cataracts Colon cancer Completed stroke Congenital disease Congenital heart disease Coronary thrombosis Cystic fibrosis Deafness or hearing loss Dementia Drug abuse Dysphasia Fibrocystic disease of breast Gastroenteritis Glaucoma Headache disorder Hypercholesterolemia Hypertension Infertility Kidney disease Myocardial infarction Neoplasm Not obtainable due to adoption Osteoporosis Parkinson's disease Prostate cancer Psychosocial problem Respiratory disorder Seizure disorder Severe allergy Thyroid disease Tuberculosis Visual disorder Heart Disease, Hypertension, Other Conditions/Hx PAST SURGICAL HISTORY: -09/20/20--LAPAROSCOPY FOR INTUSSCEPTION BY DR. BHATTI -08/24/20 --EGD/COLONOSCOPY--DX GASTRITIS/ESOPHAGITIS -CHOLECYSTECTOMY -BILATERAL TUBAL LIGATION -HYSTERECTOMY/BILATERAL SALPINGO-OOPHORECTOMY 2005 -BLADDER SLING/LATER REMOVED -CARDIAC CATH 2012--NORMAL Physical Exam Vital Signs Vital Signs - First Documented 10/15/20 10/16/20 22:45 02:15 Temp 36.4 Pulse 131 Resp 18 B/P (MAP) 199/122 (147) Pulse Ox 97 O2 Delivery Room Air Capillary Refill : Height/Weight/BMI Height: 5'6.00" Weight: 203lbs. 6.4oz. [id number]; 33.00 BMI Method:Stated General Appearance: obese, other (UNKEMPT, MALODOROUS, CONSTANT FORCED LOUD RETCHING/DRY HEAVES, WITH OCCASIONAL SMALL AMOUNTS OF BILE. PT WALKS UPRIGHT AND MOVRES WITHOUT DIFFICULTY) HEENT: PERRL/EOMI; No scleral icterus (R), No scleral icterus (L); other (NEARLY ALL TEETH DECAYED TO GUMS) Respiratory: normal breath sounds, no respiratory distress, no accessory muscle use Cardiovascular: regular rate, rhythm, no murmur Gastrointestinal: soft, tenderness (DIFFUSE TENDERNESS) Extremities: normal inspection Back: no CVA tenderness Neurologic/Psychiatric: cmo & president II-XII nml as tested, no motor/sensory deficits, alert, oriented x 3 Skin: normal color, warm/dry Progress/Results/Core Measures Results/Orders Lab Results Laboratory Tests Test 10/15/20 22:45 10/15/20 22:51 Range/Units White Blood Count 8.8 4.3-11.0 10^3/uL Red Blood Count 4.58 3.80-5.11 10^6/uL Hemoglobin 12.5 11.5-16.0 g/dL Hematocrit 40 35-52 % Mean Corpuscular Volume 86 80-99 fL Mean Corpuscular Hemoglobin 27 25-34 pg Mean Corpuscular Hemoglobin Concent 32 32-36 g/dL Red Cell Distribution Width 16.0 H 10.0-14.5 % Platelet Count 260 130-400 10^3/uL Mean Platelet Volume 9.9 9.0-12.2 fL Immature Granulocyte % (Auto) 0 % Neutrophils (%) (Auto) 64 42-75 % Lymphocytes (%) (Auto) 26 12-44 % Monocytes (%) (Auto) 9 0-12 % Eosinophils (%) (Auto) 1 0-10 % Basophils (%) (Auto) 0 0-10 % Neutrophils # (Auto) 5.6 1.8-7.8 10^3/uL Lymphocytes # (Auto) 2.2 1.0-4.0 10^3/uL Monocytes # (Auto) 0.8 0.0-1.0 10^3/uL Eosinophils # (Auto) 0.1 0.0-0.3 10^3/uL Basophils # (Auto) 0.0 0.0-0.1 10^3/uL Immature Granulocyte # (Auto) 0.0 0.0-0.1 10^3/uL Percent Immature Platelet Fraction 4.5 0.0-7.6 % Sodium Level 143 135-145 MMOL/L Potassium Level 3.3 L 3.6-5.0 MMOL/L Chloride Level 102 98-107 MMOL/L Carbon Dioxide Level 26 21-32 MMOL/L Anion Gap 15 H 5-14 MMOL/L Blood Urea Nitrogen 6 L 7-18 MG/DL Creatinine 0.80 0.60-1.30 MG/DL Estimat Glomerular Filtration Rate > 60 BUN/Creatinine Ratio 8 Glucose Level 122 H 70-105 MG/DL Calcium Level 9.9 8.5-10.1 MG/DL Corrected Calcium 9.7 8.5-10.1 MG/DL Total Bilirubin 0.3 0.1-1.0 MG/DL Aspartate Amino Transf (AST/SGOT) 23 5-34 U/L Alanine Aminotransferase (ALT/SGPT) 31 0-55 U/L Alkaline Phosphatase 82 40-136 U/L Total Protein 7.6 6.4-8.2 GM/DL Albumin 4.2 3.2-4.5 GM/DL Amylase Level 25 25-125 U/L Lipase 56 8-78 U/L Serum Test, Qualitative NEGATIVE NEGATIVE Serum Alcohol < 10 <10 MG/DL Urine Color YELLOW Urine Clarity CLEAR Urine pH 7.0 5-9 Urine Specific [place] 1.015 L 1.016-1.022 Urine Protein NEGATIVE NEGATIVE Urine Glucose (UA) NEGATIVE NEGATIVE Urine Ketones NEGATIVE NEGATIVE Urine Nitrite NEGATIVE NEGATIVE Urine Bilirubin NEGATIVE NEGATIVE Urine Urobilinogen 0.2 < = 1.0 MG/DL Urine Leukocyte Esterase TRACE H NEGATIVE Urine RBC (Auto) NEGATIVE NEGATIVE Urine RBC NONE /HPF Urine WBC 2-5 /HPF Urine Squamous Epithelial Cells 5-10 /HPF Urine Crystals NONE /LPF Urine Bacteria TRACE /HPF Urine Casts NONE /LPF Urine Mucus MODERATE H /LPF Urine Culture Indicated NO Urine Opiates Screen NEGATIVE NEGATIVE Urine Oxycodone Screen NEGATIVE NEGATIVE Urine Methadone Screen NEGATIVE NEGATIVE Urine Propoxyphene Screen NEGATIVE NEGATIVE Urine Barbiturates Screen NEGATIVE NEGATIVE Ur Tricyclic Antidepressants Screen POSITIVE H NEGATIVE Urine Phencyclidine Screen NEGATIVE NEGATIVE Urine Amphetamines Screen NEGATIVE NEGATIVE Urine Methamphetamines Screen NEGATIVE NEGATIVE Urine Benzodiazepines Screen NEGATIVE NEGATIVE Urine Cocaine Screen NEGATIVE NEGATIVE Urine Cannabinoids Screen NEGATIVE NEGATIVE My Orders Orders - CHANTEL MAYORGA DO Ondansetron Injection (Zofran Injectio (10/15/20 22:20) Alcohol (10/15/20 22:46) Amylase (10/15/20 22:46) Ed Iv/Invasive Line Start (10/15/20 22:46) Lactated Ringers (Lr 1000 Ml Iv Solution (10/15/20 23:00) Promethazine Injection (Phenergan Injec (10/15/20 23:00) Diphenhydramine Injection (Benadryl Inje (10/15/20 23:00) Scopolamine Patch (Transderm-Scop Patch) (10/15/20 23:00) Ct Abd/Pelv W (Appendicitis) (10/15/20 23:21) Promethazine Injection (Phenergan Injec (10/15/20 23:30) Diphenhydramine Injection (Benadryl Inje (10/15/20 23:30) Hyoscyamine Sl Tablet (Levsin Sl Tablet) (10/16/20 01:30) Dicyclomine Injection (Bentyl Injection) (10/16/20 09:00) Ciprofloxacin Tablet (Cipro Tablet) (10/16/20 01:30) Metronidazole Tablet (Flagyl Tablet) (10/16/20 01:30) Pantoprazole Injection (Protonix Injecti (10/16/20 01:30) Dicyclomine Injection (Bentyl Injection) (10/16/20 02:00) Medications Given in ED Current Medications Medications Dose Ordered Sig/Judi Route Start Time Stop Time Status Last Admin Dose Admin Dicyclomine HCl 20 mg QID ONCE IM 10/16/20 09:00 10/16/20 02:19 DC 10/16/20 02:11 20 MG Diphenhydramine HCl 25 mg ONCE ONCE IVP 10/15/20 23:00 10/15/20 23:01 DC 10/15/20 23:03 25 MG Diphenhydramine HCl 25 mg ONCE ONCE IVP 10/15/20 23:30 10/15/20 23:31 DC 10/16/20 00:13 25 MG Hyoscyamine Sulfate 0.25 mg ONCE ONCE PO 10/16/20 01:30 10/16/20 01:31 DC 10/16/20 02:06 0.25 MG Lactated Ringer's 1,000 ml @ 0 mls/hr Q0M ONCE IV 10/15/20 23:00 10/15/20 23:01 DC 10/15/20 23:02 1,000 MLS/HR Metronidazole 500 mg ONCE ONCE PO 10/16/20 01:30 10/16/20 01:31 DC 10/16/20 02:05 500 MG Ondansetron HCl 4 mg STK-MED ONCE .ROUTE 10/15/20 22:20 10/15/20 22:29 DC 10/15/20 22:31 8 MG Pantoprazole 40 mg ONCE ONCE IV 10/16/20 01:30 10/16/20 01:31 DC 10/16/20 02:04 40 MG Promethazine HCl 25 mg ONCE ONCE IVP 10/15/20 23:00 10/15/20 23:01 DC 10/15/20 23:04 25 MG Promethazine HCl 25 mg ONCE ONCE IVP 10/15/20 23:30 10/15/20 23:31 DC 10/16/20 00:13 25 MG Scopolamine 1.5 mg ONCE ONCE TD 10/15/20 23:00 10/15/20 23:01 DC 10/15/20 23:04 1.5 MG Vital Signs/I&O 10/15/20 10/16/20 22:45 02:15 Temp 36.4 Pulse 131 116 Resp 18 18 B/P (MAP) 199/122 (147) 174/103 (147) Pulse Ox 97 98 O2 Delivery Room Air Progress Progress Note : Progress Note GIVEN IV FLUIDS, ZOFRAN, PHENERGAN, BENADRYL, SCOPOLAMINE, LEVSIN AND BENTYL PT IS NOT VOMITING OR DRY HEAVING /RETCHING AT DISMISSAL NO DETERIORATION IN PT'S CONDITION DURING ER STAY. Diagnostic Imaging Comments CT ABDOMEN/PELVIS--MILD WALL THICKENING OF PROXIMAL LARGE BOWEL AND TRANSVERSE COLON--UNDERDISTENTION VS MILD COLITIS. PER [facility] VIA FAX AT 0111 Reviewed: Reviewed by Me Departure Impression Primary Impression: CHRONIC NAUSEA, VOMITING AND ABDOMINAL PAIN Additional Impression: POSSIBLE COLITIS Disposition: HOME, SELF-CARE Condition: Stable Departure-Patient Inst. Referrals: [facility] (PCP) Primary Care Physician AUDREY ELIZABETH (Family) Primary Care Physician Patient Instructions: Abdominal Pain, Adult ED, Colitis (DC), Nausea and Vomiting, Adult Add. Discharge Instructions: LEAVE SCOPOLAMINE PATCH IN PLACE FOR 3 DAYS CLEAR LIQUIDS--WATER, BROTH, JELLO, GATORADE--NO FOOD UNTIL YOUR PAIN AND NAUSEA ARE GONE WHEN YOU ARE BETTER, ADD BRATS DIET TO CLEAR LIQUIDS--BANANAS, RICE, APPLESAUCE, TOAST, SALTINES FOLLOW UP WITH YOUR DR IN 1-2 DAYS FOR FURTHER CARE All discharge instructions reviewed with patient and/or family. Voiced understanding. Scripts Promethazine HCl (Promethazine Suppository) 25 Mg Supp.rect 25 MG RC Q6 for Nausea/Vomiting, #10 SUPP.RECT Prov: CHANTEL MAYORGA DO 10/16/20 Ondansetron (Ondansetron Odt) 8 Mg Tab.rapdis 8 MG PO Q6H, #15 TAB Prov: CHANTEL MAYORGA DO 10/16/20 Pantoprazole Sodium (Protonix) 40 Mg Tablet.dr 40 MG PO DAILY, #15 TAB Prov: CHANTEL MAYORGA DO 10/16/20 Hyoscyamine Sulfate (Levsin-Sl) 0.125 Mg Tab.subl 0.25 MG SL Q4H, #30 TAB Prov: CHANTEL MAYORGA DO 10/16/20 Metronidazole (Flagyl) 500 Mg Tablet 500 MG PO QID, #40 TAB Prov: CHANTEL MAYORGA K 10/16/20 Dicyclomine HCl (Dicyclomine HCl) 20 Mg Tablet 20 MG PO Q6H for Abdominal Pain, #20 TAB Prov: CHANTEL MAYORGA DO 10/16/20 Ciprofloxacin HCl (Ciprofloxacin HCl) 500 Mg Tablet 500 MG PO BID, #14 TAB Prov: CHANTEL MAYORGA DO 10/16/20 HCANTEL MAYORGA DO October 16, 2020 01:32
[2020-10-16] MEDS ORDERED: DICYCLOMINE 10 MG/ML (BENTYL) 2 ML AMP IM ONE ×2 (02:00→09:00)
[2020-10-16 02:15] VITALS: BP 174/103
--- NOTE | 2020-10-16 06:20 | Diagnostic Imaging Report ---
PROCEDURE: CT abdomen and pelvis with contrast, rule out appendicitis. TECHNIQUE: Multiple contiguous axial images were obtained through the abdomen and pelvis after the administration of intravenous contrast. All CT scans use one or more of the following dose optimizing techniques: automated exposure control, MA and/or KvP adjustment based on patient size and exam type or iterative reconstruction. INDICATION: Right lower quadrant pain. The lung bases are clear. The liver is unremarkable. Gallbladder is surgically absent. There is no biliary ductal dilatation. The pancreas and spleen are unremarkable. No adrenal mass is detected. Kidneys are unremarkable. Aorta is nonaneurysmal. The bowel loops are normal caliber. Appendix is not definitely visualized, however, no inflammatory changes in the right lower quadrant are identified. There is no free fluid or fluid collection identified. The bladder is unremarkable. The uterus appears to be surgically absent. IMPRESSION: 1. Unremarkable CT of abdomen and pelvis with contrast. Appendix is not definitely visualized, however, no inflammatory changes in the right lower quadrant are identified to suggest acute appendicitis. Dictated by: Dictated on workstation # [id number]
== END 2020-10-16 02:19 | disposition home or self-care (01) ==
LOC: EDUNIT# 21:40 → ER 21:42
DX: G89.29 Other chronic pain (principal); R11.2 Nausea with vomiting, unspecified; R10.84 Generalized abdominal pain; E66.9 Obesity, unspecified; J45.909 Unspecified asthma, uncomplicated; I10 Essential (primary) hypertension; K21.9 Gastro-esophageal reflux disease without esophagitis; M54.9 Dorsalgia, unspecified; Z68.33 Body mass index [BMI] 33.0-33.9, adult; Z88.5 Allergy status to narcotic agent; Z88.6 Allergy status to analgesic agent; Z88.8 Allergy status to other drugs, medicaments and biological substances; Z79.891 Long term (current) use of opiate analgesic; Z79.899 Other long term (current) drug therapy
CPT/HCPCS: 74177; 80053; 80306; 81000; 82150; 83690; 84703 ×2; 85025; 99284; G0480; 36415; 80320

== ENCOUNTER 2020-10-16 07:51 | Emergency (ER) | payer SELFPAY ==
[~2020-10-16] VITALS: Ht 167 cm; Wt 92.0 kg
[~2020-10-16 07:51] MED LIST changes: +CIPR500T5 PO; +PROM25SU44 RC
[2020-10-16] MEDS ORDERED: LACTATED RINGERS 1,000 ML IV ONE (08:15)
[2020-10-16] MEDS ORDERED: PROMETHAZINE INJ 25 MG/ML (PHENERGAN) AMP IVP ONE (08:15)
--- NOTE | 2020-10-16 08:18 | ED Abdominal Pain ---
General Chief Complaint: Abdominal/GI Problems Stated Complaint: THROWING UP,ABD PAIN Nursing Triage Note: ARRIVED VIA AMB TO ROOM 05 WITH CONTINUING N/V ABD PAIN. STATES SHE WAS SEEN LAST NIGHT AND NOT BETTER. TOOK ZOFRAN 4MG APPX 0300 AT HOME. Sepsis Screen: No Definite Risk Source of Information: Patient Exam Limitations: No Limitations History of Present Illness Date Seen by Provider: October 16, 2020 Time Seen by Provider: 07:55 Initial Comments Patient presents ER by private conveyance with chief complaint that since 1:00 yesterday afternoon she started having nausea vomiting and diffuse abdominal pain worse in her epigastric region. She has not had any fevers or chills or diarrhea. She has a history of multiple visits for the same complaint. She has a known history of intussusception on imaging status post laparoscopy [address] Bhatti. He was unable to resect anything at that time. Patient states she is been using her Zofran with her last dose at 3:00 in the morning. She came in late last night and was seen by the ER physician and given a couple doses of Zofran which made her symptoms better. No sick contacts or recent travel. She supposed to be on Carafate and pantoprazole which she has not been able to tolerate. She has history of seizure disorder as well as hypertension however has not been able take her medications. She does not smoke marijuana. She did used to take THC laced Gummies however she says she has not had those in over a month. Allergies and Home Medications Allergies Coded Allergies: morphine (Verified Allergy, Unknown, CAUSES "REBOUND HEADACHES", 08/29/20) PT HAS RECEIVED LORTAB & OXYCODONE IN THE PAST baclofen (Verified Adverse Reaction, Severe, 06/13/15) PATIENT UNAWARE OF REACTION BUT WAS HOSPITALIZED AFTER TAKING MEDICATION AND WAS TOLD IT WAS A REACTION DUE TO THE MEDICATION SHE TOOK. meloxicam (Verified Adverse Reaction, Severe, 06/13/15) PATIENT UNAWARE OF REACTION BUT WAS HOSPITALIZED AFTER TAKING MEDICATION AND WAS TOLD IT WAS A REACTION DUE TO THE MEDICATION SHE TOOK. NSAIDS (Non-Steroidal Anti-Inflamma (Verified Adverse Reaction, Mild, have IBS and avoid NSAIDS, 12/04/12) Home Medications Amlodipine Besylate 10 Mg Tablet, 10 MG PO DAILY, (Reported) Ciprofloxacin HCl 500 Mg Tablet, 500 MG PO BID Prescribed by: CHANTEL MAYORGA on 10/16/20131 Dicyclomine HCl 20 Mg Tablet, 20 MG PO Q6H Prescribed by: CHANTEL MAYORGA on 10/16/20131 Diphenhydramine HCl 25 Mg Capsule, 25-50 MG PO Q6H PRN for ALLERGY SYMPTOMS, (Reported) Hydrocodone Bit/Acetaminophen 1 Ea Tab, 1 EA PO Q4H PRN for PAIN-MODERATE (5-7) Prescribed by: LOLY BHATTI on 09/20/20 1328 Hyoscyamine Sulfate 0.125 Mg Tab.subl, 0.125 MG SL TID PRN for STOMACH SPASMS, (Reported) Hyoscyamine Sulfate 0.125 Mg Tab.subl, 0.25 MG SL Q4H Prescribed by: CHANTEL MAYORGA on 10/16/20131 Metronidazole 500 Mg Tablet, 500 MG PO QID Prescribed by: CHANTEL MAYORGA on 10/16/20131 Ondansetron 4 Mg Tab.rapdis, 4 MG PO Q4H PRN for NAUSEA/VOMITING-1ST LINE, (Reported) Ondansetron 8 Mg Tab.rapdis, 8 MG PO Q6H Prescribed by: CHANTEL MAYORGA on 10/16/20131 Pantoprazole Sodium 40 Mg Tablet.dr, 40 MG PO DAILY, (Reported) Pantoprazole Sodium 40 Mg Tablet.dr, 40 MG PO DAILY Prescribed by: CHANTEL MAYORGA on 10/16/20131 Promethazine HCl 25 Mg Supp.rect, 25 MG RC Q6 Prescribed by: CHANTEL MAYORGA on 10/16/20131 Propranolol HCl 80 Mg Tablet, 80 MG PO TID, (Reported) Sucralfate 1 Gm Tablet, 1 GM PO QID, (Reported) Sumatriptan Succinate 100 Mg Tablet, 100 MG PO DAILY PRN for MIGRAINE, (Reported) Tizanidine HCl 4 Mg Tablet, 4 MG PO TID PRN for MUSCLE SPASMS, (Reported) Patient Home Medication List Home Medication List Reviewed: Yes Review of Systems Review of Systems Constitutional: No chills, No diaphoresis, No fever EENTM: No Blurred Vision, No Double Vision Respiratory: Denies Cough, Denies Shortness of Air Cardiovascular: Denies Chest Pain, Denies Edema Gastrointestinal: Denies Abdomen Distended; Abdominal Pain; Denies Constipated, Denies Diarrhea; Nausea, Poor Fluid Intake, Vomiting Genitourinary: Denies Burning, Denies Discharge Musculoskeletal: No back pain, No joint pain All Other Systems Reviewed Negative Unless Noted: Yes Past Hijnzum-Mhfxee-Pjrrqz Hx Patient Social History Alcohol Use: Denies Use Drug of Choice: MARIJUANA Smoking Status: Former Smoker 2nd Hand Smoke Exposure: No Recent Infectious Disease Expo: No Recent Hopitalizations: Yes (09/19/20 FOR INTUSSCEPTION) Immunizations Up To Date Tetanus Booster (TDap): Unknown PED Vaccines UTD: No Date of Pneumonia Vaccine: Mar 03, 2014 Date of Influenza Vaccine: Mar 03, 2015 Seasonal Allergies Seasonal Allergies: No Past Medical History Surgeries: Yes (EGD/COLONOSCOPY; LAPAROSCOPY) Abdominal, Bladder Surgery, Cardiac, Gallbladder, 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, Oophorectomy, Tubal Ligation Respiratory: Yes Asthma Currently Using CPAP: No Currently Using BIPAP: No Cardiac: Yes (BRADYCARDIA 2012) Hypertension, Syncope Neurological: Yes ("SEIZURES WITH LOW BLOOD PRESSURE" TX WITH PROPRANOLOL, PER PT) Seizure Disorder 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 Disorders: Yes (HYST 2005--NO PHYSICIAN DOCUMENTATION OF ANY KIND OF CANCER) 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 Sexually Transmitted Disease: Yes (HPV) HIV/AIDS: No Genitourinary: Yes Bladder Infection Gastrointestinal: Yes (CHRONIC N/V/ABD PAIN; CANNIBUS HYPEREMESIS) Gastroesophageal Reflux, Pancreatitis, Irritable Bowel Musculoskeletal: Yes Chronic Back Pain Endocrine: No HEENT: Yes (POOR DENTITION) Loss of Vision: Denies Hearing Impairment: Denies Cancer: No (NO PHYSICAN DOCUMENTAION/VERIFICATION OF ANY KIND OF CANCER) Cervical, Colon Psychosocial: Yes (THC USE) Anxiety, Depression Integumentary: No Blood Disorders: No Adverse Reaction/Blood Tranf: No Family Medical History Diabetes mellitus 19 FATHER FHx: brain tumor 19 MOTHER HPV infection G8 SISTER No Family History of: AIDS Abdominal aortic aneurysm Madi's disease Alcoholism Alzheimer's disease Aphasia Arthritis Asthma Cancer of mouth Cardiovascular disease Cataracts Colon cancer Completed stroke Congenital disease Congenital heart disease Coronary thrombosis Cystic fibrosis Deafness or hearing loss Dementia Drug abuse Dysphasia Fibrocystic disease of breast Gastroenteritis Glaucoma Headache disorder Hypercholesterolemia Hypertension Infertility Kidney disease Myocardial infarction Neoplasm Not obtainable due to adoption Osteoporosis Parkinson's disease Prostate cancer Psychosocial problem Respiratory disorder Seizure disorder Severe allergy Thyroid disease Tuberculosis Visual disorder Heart Disease, Hypertension, Other Conditions/Hx PAST SURGICAL HISTORY: -09/20/20--LAPAROSCOPY FOR INTUSSCEPTION BY DR. BHATTI -08/24/20 --EGD/COLONOSCOPY--DX GASTRITIS/ESOPHAGITIS -CHOLECYSTECTOMY -BILATERAL TUBAL LIGATION -HYSTERECTOMY/BILATERAL SALPINGO-OOPHORECTOMY 2005 -BLADDER SLING/LATER REMOVED -CARDIAC CATH 2012--NORMAL Physical Exam Vital Signs Vital Signs - First Documented 10/16/20 10/16/20 07:59 10:23 Temp 36.4 Pulse 109 Resp 16 B/P (MAP) 178/126 (143) Pulse Ox 98 O2 Delivery Room Air O2 Flow Rate 2.00 FiO2 83 Capillary Refill : Less Than 3 Seconds Height/Weight/BMI Height: 5'6.00" Weight: 203lbs. 6.4oz. 92.988123fm; 32.00 BMI Method:Stated General Appearance: WD/WN, no apparent distress HEENT: PERRL/EOMI, normal ENT inspection, pharynx normal Neck: non-tender, full range of motion, normal inspection Respiratory: lungs clear, normal breath sounds, no respiratory distress, no accessory muscle use Cardiovascular: normal peripheral pulses, regular rate, rhythm Peripheral Pulses: 2+ Radial Pulses (R), 2+ Radial Pulses (L) Gastrointestinal: normal bowel sounds, soft, no organomegaly, tenderness (Diffuse) Extremities: normal range of motion, non-tender, normal capillary refill Neurologic/Psychiatric: alert, normal mood/affect, oriented x 3 Skin: normal color, warm/dry Progress/Results/Core Measures Results/Orders Lab Results Laboratory Tests Test 10/16/20 08:15 10/16/20 09:53 Range/Units White Blood Count 8.0 4.3-11.0 10^3/uL Red Blood Count 4.59 3.80-5.11 10^6/uL Hemoglobin 12.5 11.5-16.0 g/dL Hematocrit 40 35-52 % Mean Corpuscular Volume 87 80-99 fL Mean Corpuscular Hemoglobin 27 25-34 pg Mean Corpuscular Hemoglobin Concent 32 32-36 g/dL Red Cell Distribution Width 16.1 H 10.0-14.5 % Platelet Count 391 130-400 10^3/uL Mean Platelet Volume 9.3 9.0-12.2 fL Immature Granulocyte % (Auto) 1 % Neutrophils (%) (Auto) 69 42-75 % Lymphocytes (%) (Auto) 22 12-44 % Monocytes (%) (Auto) 9 0-12 % Eosinophils (%) (Auto) 0 0-10 % Basophils (%) (Auto) 0 0-10 % Neutrophils # (Auto) 5.5 1.8-7.8 10^3/uL Lymphocytes # (Auto) 1.7 1.0-4.0 10^3/uL Monocytes # (Auto) 0.7 0.0-1.0 10^3/uL Eosinophils # (Auto) 0.0 0.0-0.3 10^3/uL Basophils # (Auto) 0.0 0.0-0.1 10^3/uL Immature Granulocyte # (Auto) 0.0 0.0-0.1 10^3/uL Sodium Level 141 135-145 MMOL/L Potassium Level 3.7 3.6-5.0 MMOL/L Chloride Level 101 98-107 MMOL/L Carbon Dioxide Level 26 21-32 MMOL/L Anion Gap 14 5-14 MMOL/L Blood Urea Nitrogen 4 L 7-18 MG/DL Creatinine 0.82 0.60-1.30 MG/DL Estimat Glomerular Filtration Rate > 60 BUN/Creatinine Ratio 5 Glucose Level 123 H 70-105 MG/DL Calcium Level 10.1 8.5-10.1 MG/DL Corrected Calcium 9.9 8.5-10.1 MG/DL Total Bilirubin 0.3 0.1-1.0 MG/DL Aspartate Amino Transf (AST/SGOT) 30 5-34 U/L Alanine Aminotransferase (ALT/SGPT) 33 0-55 U/L Alkaline Phosphatase 82 40-136 U/L C-Reactive Protein High Sensitivity 0.83 H 0.00-0.50 MG/DL Total Protein 8.0 6.4-8.2 GM/DL Albumin 4.3 3.2-4.5 GM/DL Lipase 45 8-78 U/L Urine Color YELLOW Urine Clarity CLEAR Urine pH 8.5 5-9 Urine Specific [place] 1.015 L 1.016-1.022 Urine Protein TRACE H NEGATIVE Urine Glucose (UA) NEGATIVE NEGATIVE Urine Ketones TRACE H NEGATIVE Urine Nitrite NEGATIVE NEGATIVE Urine Bilirubin NEGATIVE NEGATIVE Urine Urobilinogen 0.2 < = 1.0 MG/DL Urine Leukocyte Esterase NEGATIVE NEGATIVE Urine RBC (Auto) NEGATIVE NEGATIVE Urine RBC NONE /HPF Urine WBC 0-2 /HPF Urine Squamous Epithelial Cells 2-5 /HPF Urine Crystals NONE /LPF Urine Bacteria TRACE /HPF Urine Casts NONE /LPF Urine Mucus NEGATIVE /LPF Urine Culture Indicated NO My Orders Orders - PAULA COLINDRES Cbc With Automated Diff (10/16/20 08:05) Comprehensive Metabolic Panel (10/16/20 08:05) Hs C Reactive Protein (10/16/20 08:05) Ua Culture If Indicated (10/16/20 08:05) Urine Bedside (10/16/20 08:05) Ed Iv/Invasive Line Start (10/16/20 08:05) Lactated Ringers (Lr 1000 Ml Iv Solution (10/16/20 08:15) Promethazine Injection (Phenergan Injec (10/16/20 08:15) Fentanyl Inj (Sublimaze Injection) (10/16/20 08:30) Pantoprazole Injection (Protonix Injecti (10/16/20 08:30) Lidocaine 2% Viscous 15 Ml (Xylocaine Vi (10/16/20 08:30) Antacid Suspension (Mylanta Suspension (10/16/20 08:30) Lipase (10/16/20 08:15) Ondansetron Injection (Zofran Injectio (10/16/20 09:15) Hydrocodone/Apap 10/325 Tablet (Lortab 1 (10/16/20 09:15) Diphenhydramine Injection (Benadryl Inje (10/16/20 09:30) Haloperidol Injection (Haldol Injectio (10/16/20 09:30) Medications Given in ED Current Medications Medications Dose Ordered Sig/Judi Route Start Time Stop Time Status Last Admin Dose Admin Acetaminophen/ Hydrocodone Bitart 1 ea ONCE ONCE PO 10/16/20 09:15 10/16/20 09:16 DC 10/16/20 09:28 1 EA Al Hydrox/Mg Hydrox/Simethicone 30 ml ONCE ONCE PO 10/16/20 08:30 10/16/20 08:31 DC 10/16/20 08:55 30 ML Diphenhydramine HCl 25 mg ONCE ONCE IVP 10/16/20 09:30 10/16/20 09:31 DC 10/16/20 09:27 25 MG Fentanyl Citrate 25 mcg ONCE ONCE IVP 10/16/20 08:30 10/16/20 08:31 DC 10/16/20 08:23 25 MCG Haloperidol Lactate 5 mg ONCE ONCE IM 10/16/20 09:30 10/16/20 09:31 DC 10/16/20 09:23 5 MG Lactated Ringer's 1,000 ml @ 0 mls/hr Q0M ONCE IV 10/16/20 08:15 10/16/20 08:16 DC 10/16/20 08:21 1,000 MLS/HR Lidocaine HCl 15 ml ONCE ONCE PO 10/16/20 08:30 10/16/20 08:31 DC 10/16/20 08:55 15 ML Ondansetron HCl 8 mg ONCE ONCE IVP 10/16/20 09:15 10/16/20 09:16 DC 10/16/20 09:25 8 MG Pantoprazole 40 mg ONCE ONCE IV 10/16/20 08:30 10/16/20 08:31 DC 10/16/20 08:23 40 MG Promethazine HCl 25 mg ONCE ONCE IVP 10/16/20 08:15 10/16/20 08:16 DC 10/16/20 08:21 25 MG Vital Signs/I&O 10/16/20 10/16/20 07:59 10:23 Temp 36.4 Pulse 109 Resp 16 B/P (MAP) 178/126 (143) Pulse Ox 98 O2 Delivery Room Air Nasal Cannula O2 Flow Rate 2.00 FiO2 83 Blood Pressure Mean: 143 Progress Progress Note #1: Time: 08:24 Progress Note We will start with some Phenergan and IV fluids. She had imaging last night that was unremarkable. If we can get her nausea under control and her pain under control with some pantoprazole and 25 of fentanyl and a GI cocktail and we will hold off on imaging. She has known history of intussusception. Progress Note #2: Time: 10:32 Progress Note Patient was still having significant pain so we did a second round with some Benadryl Phenergan and Haldol. We discussed the case with Dr. Bhatti, general surgery and he will follow her in the clinic on Saturday and probably refer her on to gastroenterology. Patient is okay with this plan. She did however, little sedated with the medicines and uncovered her obstructive sleep apnea so we had to put a couple liters of oxygen on her. When she is able to sleep without oxygen then we will allow her to go home and rest. Progress Note #3: Time: 10:57 Progress Note Patient symptoms are feeling much better. She is maintaining saturations 95% on room air, snoozing softly easily aroused. Were going to allow her to go home and follow-up on Saturday with Dr. Bhatti Departure Impression Primary Impression: Abdominal discomfort Additional Impressions: Nausea & vomiting Qualified Codes: R11.2 - Nausea with vomiting, unspecified Mild dehydration Disposition: HOME, SELF-CARE Condition: Improved Departure-Patient Inst. Decision time for Depature: 10:58 Referrals: [facility] [place] Primary Care Physician AUDREY ELIZABETH (Family) Primary Care Physician LOLY BHATTI DO Patient Instructions: Nausea and Vomiting, Adult (DC) Add. Discharge Instructions: Zofran 1 to 2 tablets under the tongue every 6 hours as necessary for nausea or vomiting. Phenergan 1 tablet every 6 hours as necessary for nausea not controlled with Zofran. Tylenol, ibuprofen, Tums Rolaids and pantoprazole as well as your Carafate as necessary to treat your pain. Call Dr. Bhatti's office and request a follow-up appointment on Saturday for further outpatient work-up of your abdominal discomfort. All discharge instructions reviewed with patient and/or family. Voiced understanding. Work/School Note: Work Release Form Date Seen in the Emergency Department: October 16, 2020 Return to Work: October 19, 2020 Restrictions: No Restrictions Copy Copies To 1: LOLY BHATTI DO PAULA COLINDRES October 16, 2020 08:18
[2020-10-16 08:21] LABS: BASOPHILS % (AUTO) 0 % (0-10); EOSINOPHILS % (AUTO) 0 % (0-10); HEMATOCRIT 40 % (35-52); HEMOGLOBIN 12.5 g/dL (11.5-16.0); LYMPHOCYTES # (AUTO) 1.7 10^3/uL (1.0-4.0); LYMPHOCYTES % (AUTO) 22 % (12-44); MEAN CORPUSCULAR HEMOGLOBIN 27 pg (25-34); MEAN CORPUSCULAR HGB CONC 32 g/dL (32-36); MEAN CORPUSCULAR VOLUME 87 fL (80-99); MEAN PLATELET VOLUME 9.3 fL (9.0-12.2); MONOCYTES # (AUTO) 0.7 10^3/uL (0.0-1.0); MONOCYTES % (AUTO) 9 % (0-12); NEUTROPHILS # (AUTO) 5.5 10^3/uL (1.8-7.8); NEUTROPHILS % (AUTO) 69 % (42-75); PLATELET COUNT 391 10^3/uL (130-400)
[2020-10-16] MEDS ORDERED: LIDOCAINE 2% VISCOUS 15 ML UDC PO ONE (08:30)
[2020-10-16] MEDS ORDERED: fentaNYL INJ 100 MCG/2 ML AMP IVP ONE (08:30)
[2020-10-16] MEDS ORDERED: ANTACID SUSP 30 ML UDC (MYLANTA) PO ONE (08:30)
[2020-10-16] MEDS ORDERED: PANTOPRAZOLE 40 MG (PROTONIX) VIAL IV ONE (08:30)
[2020-10-16 08:33] LABS: ALBUMIN 4.3 GM/DL (3.2-4.5)
[2020-10-16 08:34] LABS: CHLORIDE 101 MMOL/L (98-107); POTASSIUM 3.7 MMOL/L (3.6-5.0); SODIUM 141 MMOL/L (135-145)
[2020-10-16 08:35] LABS: CALCIUM 10.1 MG/DL (8.5-10.1)
[2020-10-16 08:36] LABS: GLUCOSE 123 MG/DL (70-105)
[2020-10-16 08:37] LABS: CARBON DIOXIDE 26 MMOL/L (21-32)
[2020-10-16 08:38] LABS: BILIRUBIN,TOTAL 0.3 MG/DL (0.1-1.0)
[2020-10-16 08:40] LABS: ALKALINE PHOSPHATASE 82 U/L (40-136); CREATININE SERUM 0.82 MG/DL (0.60-1.30); GFR ESTIMATED > 60
[2020-10-16 08:41] LABS: BUN/CREATININE RATIO 5
[2020-10-16 08:43] LABS: ALANINE AMINOTRANSFERASE 33 U/L (0-55); LIPASE 45 U/L (8-78)
[2020-10-16] MEDS ORDERED: ONDANSETRON 4 MG/2 ML (SDV) Z0FRAN IVP ONE (09:15)
[2020-10-16] MEDS ORDERED: HALOPERIDOL 5 MG/ML (HALDOL) VIAL IM ONE (09:30)
[2020-10-16] MEDS ORDERED: diphenhydrAMINE 50 MG/ML INJ (BENADRYL) IVP ONE (09:30)
[2020-10-16 10:09] LABS: BILIRUBIN,URINE NEGATIVE (NEGATIVE); CLARITY,URINE CLEAR; COLOR,URINE YELLOW; GLUCOSE, URINE (UA) NEGATIVE (NEGATIVE); KETONES,URINE TRACE (NEGATIVE); LEUKOCYTE ESTERASE ,URINE NEGATIVE (NEGATIVE); NITRITE,URINE NEGATIVE (NEGATIVE); PH,URINE 8.5 (5-9); PROTEIN,URINE TRACE (NEGATIVE)
[2020-10-16 10:16] LABS: BACTERIA,URINE TRACE /HPF; WBC,URINE 0-2 /HPF
[2020-10-16 11:04] VITALS: BP 145/101
== END 2020-10-16 11:04 | disposition home or self-care (01) ==
LOC: EDUNIT# 07:51 → ER 07:53
DX: E86.0 Dehydration (principal); R10.84 Generalized abdominal pain; I10 Essential (primary) hypertension; J45.909 Unspecified asthma, uncomplicated; K21.9 Gastro-esophageal reflux disease without esophagitis; K58.9 Irritable bowel syndrome, unspecified; G89.29 Other chronic pain; M54.9 Dorsalgia, unspecified; Z87.891 Personal history of nicotine dependence; Z79.891 Long term (current) use of opiate analgesic; Z79.899 Other long term (current) drug therapy; Z88.5 Allergy status to narcotic agent; Z88.8 Allergy status to other drugs, medicaments and biological substances; Z88.6 Allergy status to analgesic agent
CPT/HCPCS: 36415; 80053; 81000; 83690; 84703; 85025; 86141

== ENCOUNTER 2020-10-27 06:44 | Emergency (ER) | payer SELFPAY ==
[~2020-10-27] VITALS: Ht 167 cm; Wt 92.5 kg
[2020-10-27 07:15] LABS: BASOPHILS % (AUTO) 0 % (0-10); EOSINOPHILS # (AUTO) 0.1 10^3/uL (0.0-0.3); EOSINOPHILS % (AUTO) 1 % (0-10); HEMATOCRIT 43 % (35-52); HEMOGLOBIN 13.3 g/dL (11.5-16.0); LYMPHOCYTES # (AUTO) 2.6 10^3/uL (1.0-4.0); LYMPHOCYTES % (AUTO) 30 % (12-44); MEAN CORPUSCULAR HEMOGLOBIN 27 pg (25-34); MEAN CORPUSCULAR HGB CONC 31 g/dL (32-36); MEAN CORPUSCULAR VOLUME 86 fL (80-99); MEAN PLATELET VOLUME 9.2 fL (9.0-12.2); MONOCYTES # (AUTO) 0.7 10^3/uL (0.0-1.0); MONOCYTES % (AUTO) 8 % (0-12); NEUTROPHILS # (AUTO) 5.2 10^3/uL (1.8-7.8); NEUTROPHILS % (AUTO) 60 % (42-75); PLATELET COUNT 448 10^3/uL (130-400); WHITE BLOOD COUNT 8.7 10^3/uL (4.3-11.0)
[2020-10-27] MEDS ORDERED: PROMETHAZINE INJ 25 MG/ML (PHENERGAN) AMP IVP ONE (07:15)
[2020-10-27] MEDS ORDERED: FAMOTIDINE 20MG/2ML IV (PEPCID) IVP ONE (07:15)
[2020-10-27] MEDS ORDERED: LACTATED RINGERS 1,000 ML IV ONE (07:15)
[2020-10-27 07:19] LABS: ALBUMIN 4.5 GM/DL (3.2-4.5); CHLORIDE 107 MMOL/L (98-107); POTASSIUM 4.3 MMOL/L (3.6-5.0); SODIUM 143 MMOL/L (135-145)
[2020-10-27 07:20] LABS: CALCIUM 10.2 MG/DL (8.5-10.1)
[2020-10-27 07:21] LABS: GLUCOSE 108 MG/DL (70-105)
[2020-10-27 07:22] LABS: TOTAL PROTEIN 7.9 GM/DL (6.4-8.2)
[2020-10-27 07:23] LABS: BILIRUBIN,TOTAL 0.4 MG/DL (0.1-1.0); CARBON DIOXIDE 22 MMOL/L (21-32)
[2020-10-27 07:25] LABS: ALKALINE PHOSPHATASE 86 U/L (40-136); CREATININE SERUM 0.89 MG/DL (0.60-1.30); GFR ESTIMATED > 60
--- NOTE | 2020-10-27 07:25 | ED Abdominal Pain ---
General Chief Complaint: Abdominal/GI Problems Stated Complaint: VOMITING Nursing Triage Note: PT PRESENTS TO ED WITH COMPLAINTS OF N/V AND GENERALIZED ABDOMINAL PAIN SINCE 1600 YESTERDAY. Sepsis Screen: No Definite Risk Source of Information: Patient Exam Limitations: No Limitations History of Present Illness Date Seen by Provider: October 27, 2020 Time Seen by Provider: 06:55 Initial Comments This 45-year-old woman with known history of intussusception seen on laparoscopic exploration last month presents to the emergency room with recurrence of upper abdominal pain, nausea, and vomiting. She has a long history of recurrent episodes of abdominal pain, nausea, and vomiting. In work- up last month she was found to have intussusception. This easily resolved during her laparoscopic exploration by Dr. Bhatti. She reports relief of symptoms until yesterday when symptoms returned. She has taken doses of Zofran last night and again this morning without relief. She reports compliance with daily PPI use. She denies any use of marijuana or THC products since her last hospital visit. Allergies and Home Medications Allergies Coded Allergies: morphine (Verified Allergy, Unknown, CAUSES "REBOUND HEADACHES", 08/29/20) PT HAS RECEIVED LORTAB & OXYCODONE IN THE PAST baclofen (Verified Adverse Reaction, Severe, 06/13/15) PATIENT UNAWARE OF REACTION BUT WAS HOSPITALIZED AFTER TAKING MEDICATION AND WAS TOLD IT WAS A REACTION DUE TO THE MEDICATION SHE TOOK. meloxicam (Verified Adverse Reaction, Severe, 06/13/15) PATIENT UNAWARE OF REACTION BUT WAS HOSPITALIZED AFTER TAKING MEDICATION AND WAS TOLD IT WAS A REACTION DUE TO THE MEDICATION SHE TOOK. NSAIDS (Non-Steroidal Anti-Inflamma (Verified Adverse Reaction, Mild, have IBS and avoid NSAIDS, 12/04/12) Home Medications Amlodipine Besylate 10 Mg Tablet, 10 MG PO DAILY, (Reported) Ciprofloxacin HCl 500 Mg Tablet, 500 MG PO BID Prescribed by: CHANTEL MAYORGA on 10/16/20 013 Dicyclomine HCl 20 Mg Tablet, 20 MG PO Q6H Prescribed by: CHANTEL MAYORGA on 10/16/20131 Diphenhydramine HCl 25 Mg Capsule, 25-50 MG PO Q6H PRN for ALLERGY SYMPTOMS, (Reported) Famotidine 20 Mg Tablet, 20 MG PO BID Prescribed by: MARY BENTLEY on 10/27/20 0947 Hydrocodone Bit/Acetaminophen 1 Ea Tab, 1 EA PO Q4H PRN for PAIN-MODERATE (5-7) Prescribed by: LOLY BHATTI on 09/20/20 1328 Hyoscyamine Sulfate 0.125 Mg Tab.subl, 0.125 MG SL TID PRN for STOMACH SPASMS, (Reported) Hyoscyamine Sulfate 0.125 Mg Tab.subl, 0.25 MG SL Q4H Prescribed by: CHANTEL MAYORGA on 10/16/20131 Metronidazole 500 Mg Tablet, 500 MG PO QID Prescribed by: CHANTEL MAYORGA on 10/16/20131 Omeprazole 20 Mg Capsule.dr, 20 MG PO BID Prescribed by: MARY BENTLEY on 10/27/20 0947 Ondansetron 4 Mg Tab.rapdis, 4 MG PO Q4H PRN for NAUSEA/VOMITING-1ST LINE, (Reported) Ondansetron 8 Mg Tab.rapdis, 8 MG PO Q6H Prescribed by: CHANTEL MAYORGA on 10/16/20131 Pantoprazole Sodium 40 Mg Tablet.dr, 40 MG PO DAILY, (Reported) Pantoprazole Sodium 40 Mg Tablet.dr, 40 MG PO DAILY Prescribed by: CHANTEL MAYORGA on 10/16/20131 Promethazine HCl 25 Mg Supp.rect, 25 MG RC Q6 Prescribed by: CHANTEL MAYORGA on 10/16/20131 Promethazine HCl 25 Mg Supp.rect, 25 MG RC TID PRN for NAUSEA/VOMITING-2ND LINE Prescribed by: MARY BENTLEY on 10/27/20 09 Propranolol HCl 80 Mg Tablet, 80 MG PO TID, (Reported) Sucralfate 1 Gm Tablet, 1 GM PO QID, (Reported) Sumatriptan Succinate 100 Mg Tablet, 100 MG PO DAILY PRN for MIGRAINE, (Reported) Tizanidine HCl 4 Mg Tablet, 4 MG PO TID PRN for MUSCLE SPASMS, (Reported) Patient Home Medication List Home Medication List Reviewed: Yes Review of Systems Review of Systems Constitutional: no symptoms reported EENTM: No Symptoms Reported Respiratory: No Symptoms Reported Cardiovascular: No Symptoms Reported Gastrointestinal: See HPI Genitourinary: No Symptoms Reported Musculoskeletal: no symptoms reported Skin: no symptoms reported Psychiatric/Neurological: No Symptoms Reported Endocrine: No Symptoms Reported Hematologic/Lymphatic: No Symptoms Reported Past Mxxbbru-Xqkzrr-Lxdspu Hx Past Med/Social Hx: Reviewed Nursing Past Med/Soc Hx Patient Social History Alcohol Use: Denies Use Drug of Choice: MARIJUANA Smoking Status: Never a Smoker 2nd Hand Smoke Exposure: No Recent Infectious Disease Expo: No Recent Hopitalizations: Yes (09/19/20 FOR INTUSSCEPTION) Immunizations Up To Date Tetanus Booster (TDap): Unknown PED Vaccines UTD: No Date of Pneumonia Vaccine: Mar 03, 2014 Date of Influenza Vaccine: Mar 03, 2015 Seasonal Allergies Seasonal Allergies: No Past Medical History Surgeries: Yes (EGD/COLONOSCOPY; LAPAROSCOPY) Abdominal, Bladder Surgery, Gallbladder, 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, Oophorectomy, Tubal Ligation Respiratory: Yes Asthma Currently Using CPAP: No Currently Using BIPAP: No Cardiac: Yes (BRADYCARDIA 2012) Hypertension, Syncope Neurological: Yes ("SEIZURES WITH LOW BLOOD PRESSURE" TX WITH PROPRANOLOL, PER PT) Seizure Disorder 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 Disorders: Yes (HYST 2005--NO PHYSICIAN DOCUMENTATION OF ANY KIND OF CANCER) 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 Disorders: Denies 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 Sexually Transmitted Disease: Yes (HPV) HIV/AIDS: No Genitourinary: Yes Bladder Infection Gastrointestinal: Yes (CHRONIC N/V/ABD PAIN; CANNIBUS HYPEREMESIS, history intussusception) Gastroesophageal Reflux, Pancreatitis, Irritable Bowel Musculoskeletal: Yes Chronic Back Pain Endocrine: No HEENT: Yes (POOR DENTITION) Loss of Vision: Denies Hearing Impairment: Denies Cancer: No (NO PHYSICAN DOCUMENTAION/VERIFICATION OF ANY KIND OF CANCER) Cervical, Colon Psychosocial: Yes (THC USE) Anxiety, Depression Integumentary: No Blood Disorders: No Adverse Reaction/Blood Tranf: No Family Medical History Diabetes mellitus 19 FATHER FHx: brain tumor 19 MOTHER HPV infection G8 SISTER No Family History of: AIDS Abdominal aortic aneurysm Madi's disease Alcoholism Alzheimer's disease Aphasia Arthritis Asthma Cancer of mouth Cardiovascular disease Cataracts Colon cancer Completed stroke Congenital disease Congenital heart disease Coronary thrombosis Cystic fibrosis Deafness or hearing loss Dementia Drug abuse Dysphasia Fibrocystic disease of breast Gastroenteritis Glaucoma Headache disorder Hypercholesterolemia Hypertension Infertility Kidney disease Myocardial infarction Neoplasm Not obtainable due to adoption Osteoporosis Parkinson's disease Prostate cancer Psychosocial problem Respiratory disorder Seizure disorder Severe allergy Thyroid disease Tuberculosis Visual disorder Heart Disease, Hypertension, Other Conditions/Hx PAST SURGICAL HISTORY: -09/20/20--LAPAROSCOPY FOR INTUSSCEPTION BY DR. BHATTI -08/24/20 --EGD/COLONOSCOPY--DX GASTRITIS/ESOPHAGITIS -CHOLECYSTECTOMY -BILATERAL TUBAL LIGATION -HYSTERECTOMY/BILATERAL SALPINGO-OOPHORECTOMY 2005 -BLADDER SLING/LATER REMOVED -CARDIAC CATH 2012--NORMAL Physical Exam Vital Signs Vital Signs - First Documented 10/27/20 10/27/20 06:53 09:57 Temp 35.9 Pulse 91 Resp 18 B/P (MAP) 150/100 Pulse Ox 98 Capillary Refill : Less Than 3 Seconds Height/Weight/BMI Height: 5'6.00" Weight: 203lbs. 6.4oz. 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 tested, no motor/sensory deficits, alert, normal mood/affect, oriented x 3 Skin: normal color, warm/dry Progress/Results/Core Measures Results/Orders Lab Results Laboratory Tests Test 10/27/20 06:54 10/27/20 08:41 Range/Units White Blood Count 8.7 4.3-11.0 10^3/uL Red Blood Count 4.94 3.80-5.11 10^6/uL Hemoglobin 13.3 11.5-16.0 g/dL Hematocrit 43 35-52 % Mean Corpuscular Volume 86 80-99 fL Mean Corpuscular Hemoglobin 27 25-34 pg Mean Corpuscular Hemoglobin Concent 31 L 32-36 g/dL Red Cell Distribution Width 15.9 H 10.0-14.5 % Platelet Count 448 H 130-400 10^3/uL Mean Platelet Volume 9.2 9.0-12.2 fL Immature Granulocyte % (Auto) 0 % Neutrophils (%) (Auto) 60 42-75 % Lymphocytes (%) (Auto) 30 12-44 % Monocytes (%) (Auto) 8 0-12 % Eosinophils (%) (Auto) 1 0-10 % Basophils (%) (Auto) 0 0-10 % Neutrophils # (Auto) 5.2 1.8-7.8 10^3/uL Lymphocytes # (Auto) 2.6 1.0-4.0 10^3/uL Monocytes # (Auto) 0.7 0.0-1.0 10^3/uL Eosinophils # (Auto) 0.1 0.0-0.3 10^3/uL Basophils # (Auto) 0.0 0.0-0.1 10^3/uL Immature Granulocyte # (Auto) 0.0 0.0-0.1 10^3/uL Sodium Level 143 135-145 MMOL/L Potassium Level 4.3 3.6-5.0 MMOL/L Chloride Level 107 98-107 MMOL/L Carbon Dioxide Level 22 21-32 MMOL/L Anion Gap 14 5-14 MMOL/L Blood Urea Nitrogen 6 L 7-18 MG/DL Creatinine 0.89 0.60-1.30 MG/DL Estimat Glomerular Filtration Rate > 60 BUN/Creatinine Ratio 7 Glucose Level 108 H 70-105 MG/DL Calcium Level 10.2 H 8.5-10.1 MG/DL Corrected Calcium 9.8 8.5-10.1 MG/DL Magnesium Level 2.0 1.6-2.4 MG/DL Total Bilirubin 0.4 0.1-1.0 MG/DL Aspartate Amino Transf (AST/SGOT) 23 5-34 U/L Alanine Aminotransferase (ALT/SGPT) 23 0-55 U/L Alkaline Phosphatase 86 40-136 U/L Total Protein 7.9 6.4-8.2 GM/DL Albumin 4.5 3.2-4.5 GM/DL Lipase 49 8-78 U/L Urine Color YELLOW Urine Clarity CLEAR Urine pH 8.0 5-9 Urine Specific [place] 1.010 L 1.016-1.022 Urine Protein NEGATIVE NEGATIVE Urine Glucose (UA) NEGATIVE NEGATIVE Urine Ketones NEGATIVE NEGATIVE Urine Nitrite NEGATIVE NEGATIVE Urine Bilirubin NEGATIVE NEGATIVE Urine Urobilinogen 0.2 < = 1.0 MG/DL Urine Leukocyte Esterase NEGATIVE NEGATIVE Urine RBC (Auto) NEGATIVE NEGATIVE Urine RBC NONE /HPF Urine WBC 2-5 /HPF Urine Squamous Epithelial Cells 2-5 /HPF Urine Crystals NONE /LPF Urine Bacteria TRACE /HPF Urine Casts NONE /LPF Urine Mucus NEGATIVE /LPF Urine Culture Indicated NO Urine Opiates Screen NEGATIVE NEGATIVE Urine Oxycodone Screen NEGATIVE NEGATIVE Urine Methadone Screen NEGATIVE NEGATIVE Urine Propoxyphene Screen NEGATIVE NEGATIVE Urine Barbiturates Screen NEGATIVE NEGATIVE Ur Tricyclic Antidepressants Screen NEGATIVE NEGATIVE Urine Phencyclidine Screen NEGATIVE NEGATIVE Urine Amphetamines Screen NEGATIVE NEGATIVE Urine Methamphetamines Screen NEGATIVE NEGATIVE Urine Benzodiazepines Screen NEGATIVE NEGATIVE Urine Cocaine Screen NEGATIVE NEGATIVE Urine Cannabinoids Screen NEGATIVE NEGATIVE My Orders Orders - MARY VITAL MD Ed Iv/Invasive Line Start (10/27/20 07:07) Lactated Ringers (Lr 1000 Ml Iv Solution (10/27/20 07:15) Cbc With Automated Diff (10/27/20 07:07) Comprehensive Metabolic Panel (10/27/20 07:07) Drug Screen Stat (Urine) (10/27/20 07:07) Lipase (10/27/20 07:07) Magnesium (10/27/20 07:07) Ua Culture If Indicated (10/27/20 07:07) Famotidine Injection (Pepcid Injection) (10/27/20 07:15) Promethazine Injection (Phenergan Injec (10/27/20 07:15) Abdomen, Flat & Upright/Decub (10/27/20 07:10) Ondansetron Injection (Zofran Injectio (10/27/20 08:15) Fentanyl Inj (Sublimaze Injection) (10/27/20 08:15) Lidocaine 2% Viscous 15 Ml (Xylocaine Vi (10/27/20 08:45) Antacid Suspension (Mylanta Suspension (10/27/20 08:45) Medications Given in ED Vital Signs/I&O 10/27/20 10/27/20 06:53 09:57 Temp 35.9 Pulse 91 75 Resp 18 20 B/P (MAP) 150/100 Pulse Ox 98 98 Progress Progress Note #1: Time: 07:29 Progress Note Patient was seen and examined. Phenergan, Pepcid and IV fluids have been ordered. KUB and upright x-ray will be obtained. We will add pain medication as needed. Progress Note #2: Progress Note Initial work-up was unremarkable. I discussed the situation with Dr. Bhatti. He states a referral to gastroenterology is pending. The only thing left to offer the patient in the emergency room for further evaluation is a repeat CT scan. I discussed the options with the patient including risks and benefits of CT scan. She elects to try a GI cocktail. GI cocktail moderately improved her symptoms. I recommended adjusting her antacid therapy. She should increase her Carafate from 3 times a day to 4 times a day and increase Pepcid from once a day to twice a day. I also advised adding omeprazole and following through with the gastroenterology referral. Patient was ultimately discharged home in improved condition. Diagnostic Imaging Diagonstic Imaging: Xray Plain Films/CT/US/NM/MRI: abdomen, pelvis Comments NAME: [facility]ORIAN [facility]OWN [facility] REC#: [id number] PT STATUS: REG ER : 1975 PHYSICIAN: MARY VITAL MD ADMIT DATE: 10/27/20/ER Signed Date of Exam:10/27/20 ABDOMEN, FLAT & UPRIGHT/DECUB Indication: Nausea, emesis and abdominal pain Supine and upright views of the abdomen are obtained with comparison made study of 09/13/2020 Overall bowel gas pattern is unremarkable. Surgical clips are seen at the level of the gallbladder fossa. Calcified phleboliths are seen in the pelvis, greater on the right. Otherwise there is no evidence of pathologic abdominal calcification. There is no evidence of adverse change. IMPRESSION: No acute abnormality. Dictated by: Dictated on workstation # [id number] Dict: 10/27/2042 Trans: 10/27/20 0747 [facility] [id number] Interpreted by: KAMRAN BHATIA MD Electronically signed by: KAMRAN BHATIA MD 10/27/20 0747 Departure Impression Primary Impression: Recurrent abdominal pain Additional Impression: Nausea and vomiting Qualified Codes: R11.2 - Nausea with vomiting, unspecified Disposition: 01 HOME, SELF-CARE Condition: Improved Departure-Patient Inst. Decision time for Depature: 09:40 Referrals: [facility] (PCP) Primary Care Physician AUDREY ELIZABETH (Family) Primary Care Physician Patient Instructions: Severe Abdominal Pain, Adult (DC) Add. Discharge Instructions: Use Zofran as previously prescribed for nausea and vomiting. Add the Phenergan (promethazine) suppositories for nausea vomiting not controlled by Zofran. You may take Tylenol (acetaminophen) up to 1000 mg every 6 hours as needed for pain, but avoid use of NSAIDs such as ibuprofen or naproxen. Increase your Pepcid (famotidine) to 20 mg twice daily. Add omeprazole 20 mg twice daily as well. Drink plenty of noncarbonated clear liquids to stay well-hydrated. Avoid the following: Eating large meals, eating close to bedtime, caffeine, carbonation, citrus fruits and juices, chocolate, tomato products, alcohol, tobacco, spicy foods, mints, NSAID medications such as ibuprofen or naproxen, fatty or greasy foods, or anything else you know irritate your stomach. Follow-up with Dr. Bhatti's office regarding referral to a housekeeping and laundry team leader. Return to care if you have worsening symptoms or you develop new symptoms such as fever. Call with questions or concerns. All discharge instructions reviewed with patient and/or family. Voiced understanding. Scripts Omeprazole (Omeprazole) 20 Mg Capsule.dr 20 MG PO BID, #60 CAP Prov: MARY VITAL MD 10/27/20 Famotidine (Pepcid) 20 Mg Tablet 20 MG PO BID, #60 TAB Prov: MARY VITAL MD 10/27/20 Promethazine HCl (Promethazine Suppository) 25 Mg Supp.rect 25 MG RC TID PRN for NAUSEA/VOMITING-2ND LINE, #20 SUPP.RECT Prov: MARY VITAL MD 10/27/20 Copy Copies To 1: LOLY BHATTI DO Copies To 2: ANNE BYRD DO MARY VITAL MD October 27, 2020 07:25
[2020-10-27 07:26] LABS: BUN/CREATININE RATIO 7
[2020-10-27 07:28] LABS: ALANINE AMINOTRANSFERASE 23 U/L (0-55)
[2020-10-27 07:29] LABS: LIPASE 49 U/L (8-78)
--- NOTE | 2020-10-27 07:46 | Diagnostic Imaging Report ---
Indication: Nausea, emesis and abdominal pain Supine and upright views of the abdomen are obtained with comparison made study of 09/13/2020 Overall bowel gas pattern is unremarkable. Surgical clips are seen at the level of the gallbladder fossa. Calcified phleboliths are seen in the pelvis, greater on the right. Otherwise there is no evidence of pathologic abdominal calcification. There is no evidence of adverse change. IMPRESSION: No acute abnormality. Dictated by: Dictated on workstation # [id number]
[2020-10-27] MEDS ORDERED: ONDANSETRON 4 MG/2 ML (SDV) Z0FRAN IVP ONE (08:15)
[2020-10-27] MEDS ORDERED: fentaNYL INJ 100 MCG/2 ML AMP IVP ONE (08:15)
[2020-10-27] MEDS ORDERED: ANTACID SUSP 30 ML UDC (MYLANTA) PO ONE (08:45)
[2020-10-27] MEDS ORDERED: LIDOCAINE 2% VISCOUS 15 ML UDC PO ONE (08:45)
[2020-10-27 08:48] LABS: BILIRUBIN,URINE NEGATIVE (NEGATIVE); CLARITY,URINE CLEAR; COLOR,URINE YELLOW; GLUCOSE, URINE (UA) NEGATIVE (NEGATIVE); KETONES,URINE NEGATIVE (NEGATIVE); LEUKOCYTE ESTERASE ,URINE NEGATIVE (NEGATIVE); NITRITE,URINE NEGATIVE (NEGATIVE); PROTEIN,URINE NEGATIVE (NEGATIVE)
[2020-10-27 09:08] LABS: BACTERIA,URINE TRACE /HPF
[2020-10-27 09:10] LABS: AMPHETAMINE SCREEN, URINE NEGATIVE (NEGATIVE); BARBITURATE SCREEN URINE NEGATIVE (NEGATIVE); BENZODIAZEPINES SCREEN URINE NEGATIVE (NEGATIVE); CANNABINOID SCREEN, URINE NEGATIVE (NEGATIVE); COCAINE SCREEN URINE NEGATIVE (NEGATIVE); METHADONE STAT NEGATIVE (NEGATIVE); METHAMPHETAMINE SCREEN URINE S NEGATIVE (NEGATIVE); OPIATE SCREEN URINE NEGATIVE (NEGATIVE); OXYCODONE STAT NEGATIVE (NEGATIVE); PROPOXYPHENE STAT NEGATIVE (NEGATIVE); TRICYCLIC ANTIDEPRESSANTS SCRE NEGATIVE (NEGATIVE)
[2020-10-27] MEDS ORDERED: PROM25SU44 RC (09:47)
[2020-10-27] MEDS ORDERED: FAMO-119 PO (09:47)
[2020-10-27] MEDS ORDERED: OMEP20CA18 PO (09:47)
[2020-10-27 09:57] VITALS: BP 150/100
== END 2020-10-27 09:57 | disposition home or self-care (01) ==
LOC: EDUNIT# 06:44 → ER 06:46
DX: R10.84 Generalized abdominal pain (principal); R11.2 Nausea with vomiting, unspecified; I10 Essential (primary) hypertension; J45.909 Unspecified asthma, uncomplicated; K21.9 Gastro-esophageal reflux disease without esophagitis; K58.9 Irritable bowel syndrome, unspecified; G89.29 Other chronic pain; M54.9 Dorsalgia, unspecified; F41.9 Anxiety disorder, unspecified; Z90.49 Acquired absence of other specified parts of digestive tract; Z90.722 Acquired absence of ovaries, bilateral; Z98.51 Tubal ligation status; Z90.710 Acquired absence of both cervix and uterus; Z79.891 Long term (current) use of opiate analgesic; Z79.899 Other long term (current) drug therapy
CPT/HCPCS: 36415; 74019; 80053; 80306; 81000; 83690; 83735; 85025; 96361; 96374; 96375

== ENCOUNTER 2020-11-15 05:35 | Emergency (ER) | payer SELFPAY ==
[~2020-11-15] VITALS: Ht 167 cm; Wt 85.0 kg
[~2020-11-15 05:35] MED LIST changes: +OMEP20CA18 PO
--- NOTE | 2020-11-15 06:20 | ED Headache ---
General Chief Complaint: Head/Cervical Problems Stated Complaint: VOMITING,MIGRAINE Nursing Triage Note: PATIENT STATES GAN SINCE YESTERDAY. STATES TOOK IMATREX WITH NO RELIEF. HAS N/V Nursing Sepsis Screen: No Definite Risk Source: patient Exam Limitations: no limitations History of Present Illness Date Seen by Provider: Nov 15, 2020 Time Seen by Provider: 06:05 Initial Comments Patient is a 45-year-old female who presents to the emergency department today with a chief complaint of "migraine". Patient states that her headache started yesterday. She took her Imitrex at 6 AM but did not have any relief of symptoms. She went to [facility] and was given a shot of Toradol and some nausea medication. She states it did not make it any better she continues to have nausea and vomiting related to the headache. She states it is not the worst headache of her life she has had similar headaches in the past. She states it has been a year since she had one this bad. She did take another dose of Imitrex in the middle of the night at 1 AM. She denies any recent fevers, chills, cough or congestion. No shortness of breath or chest pain. She does have a history of hypertension and is quite hypertensive right now but states that she vomited up her amlodipine this morning. No other complaints of injury or illness. No problems with bowel or bladder. No problems with balance or coordination. All other review of systems reviewed and negative except as stated above. Timing/Duration: 24 hours Severity/Quality: severe, constant, pressure Location: frontal Prior Headaches/Recent Trauma: frequent headaches Modifying Factors: worse with exposure to light, worse with movement Associated Symptoms: nausea/vomiting Allergies and Home Medications Allergies Coded Allergies: morphine (Verified Allergy, Unknown, CAUSES "REBOUND HEADACHES", 08/29/20) PT HAS RECEIVED LORTAB & OXYCODONE IN THE PAST baclofen (Verified Adverse Reaction, Severe, 06/13/15) PATIENT UNAWARE OF REACTION BUT WAS HOSPITALIZED AFTER TAKING MEDICATION AND WAS TOLD IT WAS A REACTION DUE TO THE MEDICATION SHE TOOK. meloxicam (Verified Adverse Reaction, Severe, 06/13/15) PATIENT UNAWARE OF REACTION BUT WAS HOSPITALIZED AFTER TAKING MEDICATION AND WAS TOLD IT WAS A REACTION DUE TO THE MEDICATION SHE TOOK. NSAIDS (Non-Steroidal Anti-Inflamma (Verified Adverse Reaction, Mild, have IBS and avoid NSAIDS, 7/4/13) Home Medications Amlodipine Besylate 10 Mg Tablet, 10 MG PO DAILY, (Reported) Ciprofloxacin HCl 500 Mg Tablet, 500 MG PO BID Prescribed by: CHANTEL MAYORGA on 10/16/20131 Dicyclomine HCl 20 Mg Tablet, 20 MG PO Q6H Prescribed by: CHANTEL MAYORGA on 10/16/20131 Diphenhydramine HCl 25 Mg Capsule, 25-50 MG PO Q6H PRN for ALLERGY SYMPTOMS, (Reported) Famotidine 20 Mg Tablet, 20 MG PO BID Prescribed by: MARY BENTLEY on 10/27/20946 Hydrocodone Bit/Acetaminophen 1 Ea Tab, 1 EA PO Q4H PRN for PAIN-MODERATE (5-7) Prescribed by: LOLY BHATTI on 09/20/20 132 Hyoscyamine Sulfate 0.125 Mg Tab.subl, 0.125 MG SL TID PRN for STOMACH SPASMS, (Reported) Hyoscyamine Sulfate 0.125 Mg Tab.subl, 0.25 MG SL Q4H Prescribed by: CHANTEL MAYORGA on 10/16/20131 Metronidazole 500 Mg Tablet, 500 MG PO QID Prescribed by: CHANTEL MAYORGA on 10/16/20131 Omeprazole 20 Mg Capsule.dr, 20 MG PO BID Prescribed by: MARY BENTLEY on 10/27/20946 Ondansetron 4 Mg Tab.rapdis, 4 MG PO Q4H PRN for NAUSEA/VOMITING-1ST LINE, (Reported) Ondansetron 8 Mg Tab.rapdis, 8 MG PO Q6H Prescribed by: CHANTEL MAYORGA on 10/16/20131 Pantoprazole Sodium 40 Mg Tablet.dr, 40 MG PO DAILY, (Reported) Pantoprazole Sodium 40 Mg Tablet.dr, 40 MG PO DAILY Prescribed by: CHANTEL MAYORGA on 10/16/20131 Promethazine HCl 25 Mg Supp.rect, 25 MG RC Q6 Prescribed by: CHANTEL MAYORGA on 10/16/20131 Promethazine HCl 25 Mg Supp.rect, 25 MG RC TID PRN for NAUSEA/VOMITING-2ND LINE Prescribed by: MARY BENTLEY on 10/27/20946 Propranolol HCl 80 Mg Tablet, 80 MG PO TID, (Reported) Sucralfate 1 Gm Tablet, 1 GM PO QID, (Reported) Sumatriptan Succinate 100 Mg Tablet, 100 MG PO DAILY PRN for MIGRAINE, (Reported) Tizanidine HCl 4 Mg Tablet, 4 MG PO TID PRN for MUSCLE SPASMS, (Reported) Patient Home Medication List Home Medication List Reviewed: Yes Review of Systems Review of Systems Constitutional: see HPI Eyes: No Symptoms Reported Ears, Nose, Mouth, Throat: no symptoms reported Respiratory: no symptoms reported Cardiovascular: no symptoms reported Gastrointestinal: nausea, vomiting Genitourinary: no symptoms reported : No Musculoskeletal: no symptoms reported Skin: no symptoms reported Psychiatric/Neurological: Headache All Other Systems Reviewed Negative Unless Noted: Yes Past Gvgmwfa-Bmoihl-Nrwcvt Hx Patient Social History Alcohol Use: Denies Use Drug of Choice: MARIJUANA Smoking Status: Never a Smoker 2nd Hand Smoke Exposure: No Recent Infectious Disease Expo: No Recent Hopitalizations: Yes (09/19/20 FOR INTUSSCEPTION) Immunizations Up To Date Tetanus Booster (TDap): Unknown PED Vaccines UTD: No Date of Pneumonia Vaccine: Mar 03, 2014 Date of Influenza Vaccine: Mar 03, 2015 Seasonal Allergies Seasonal Allergies: No Past Medical History Surgeries: Yes (EGD/COLONOSCOPY; LAPAROSCOPY) Abdominal, Bladder Surgery, Gallbladder, 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, Oophorectomy, Tubal Ligation Respiratory: Yes Asthma Currently Using CPAP: No Currently Using BIPAP: No Cardiac: Yes (BRADYCARDIA 2012) Hypertension, Syncope Neurological: Yes ("SEIZURES WITH LOW BLOOD PRESSURE" TX WITH PROPRANOLOL, PER PT) Seizure Disorder 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 Disorders: Yes (HYST 2005--NO PHYSICIAN DOCUMENTATION OF ANY KIND OF CANCER) 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 Disorders: 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 Sexually Transmitted Disease: Yes (HPV) HIV/AIDS: No Genitourinary: Yes Bladder Infection Gastrointestinal: Yes (CHRONIC N/V/ABD PAIN; CANNIBUS HYPEREMESIS, history intussusception) Gastroesophageal Reflux, Pancreatitis, Irritable Bowel Musculoskeletal: Yes Chronic Back Pain Endocrine: No HEENT: Yes (POOR DENTITION) Loss of Vision: Denies Hearing Impairment: Denies Cancer: No (NO PHYSICAN DOCUMENTAION/VERIFICATION OF ANY KIND OF CANCER) Cervical, Colon Psychosocial: Yes (THC USE) Anxiety, Depression Integumentary: No Blood Disorders: No Adverse Reaction/Blood Tranf: No Family Medical History Diabetes mellitus 19 FATHER FHx: brain tumor 19 MOTHER HPV infection G8 SISTER No Family History of: AIDS Abdominal aortic aneurysm Madi's disease Alcoholism Alzheimer's disease Aphasia Arthritis Asthma Cancer of mouth Cardiovascular disease Cataracts Colon cancer Completed stroke Congenital disease Congenital heart disease Coronary thrombosis Cystic fibrosis Deafness or hearing loss Dementia Drug abuse Dysphasia Fibrocystic disease of breast Gastroenteritis Glaucoma Headache disorder Hypercholesterolemia Hypertension Infertility Kidney disease Myocardial infarction Neoplasm Not obtainable due to adoption Osteoporosis Parkinson's disease Prostate cancer Psychosocial problem Respiratory disorder Seizure disorder Severe allergy Thyroid disease Tuberculosis Visual disorder Heart Disease, Hypertension, Other Conditions/Hx PAST SURGICAL HISTORY: -09/20/20--LAPAROSCOPY FOR INTUSSCEPTION BY DR. BHATTI -08/24/20 --EGD/COLONOSCOPY--DX GASTRITIS/ESOPHAGITIS -CHOLECYSTECTOMY -BILATERAL TUBAL LIGATION -HYSTERECTOMY/BILATERAL SALPINGO-OOPHORECTOMY 2005 -BLADDER SLING/LATER REMOVED -CARDIAC CATH 2012--NORMAL Physical Exam Vital Signs Vital Signs - First Documented 11/15/20 06:09 Temp 36.9 Pulse 94 Resp 18 B/P (MAP) 182/123 (142) Pulse Ox 99 O2 Delivery Room Air Capillary Refill : Less Than 3 Seconds Height, Weight, BMI Height: 5'6.00" Weight: 203lbs. 6.4oz. 92.713939um; 30.00 BMI Method:Stated General Appearance: WD/WN, no apparent distress HEENT: PERRL/EOMI Neck: full range of motion Cardiovascular: regular rate, rhythm Respiratory: lungs clear, normal breath sounds, no respiratory distress, no accessory muscle use Gastrointestinal: non tender, soft Extremities: normal inspection Psychiatric: alert, oriented x 3 Crainal Nerves: normal hearing, normal speech, PERRL Motor/Sensory: no motor deficit, no sensory deficit Skin: normal color, warm/dry Progress/Results/Core Measures Results/Orders My Orders Orders - ARIELLA WARNER MD Ed Iv/Invasive Line Start (11/15/20 06:20) Prochlorperazine Injection (Compazine In (11/15/20 06:30) Diphenhydramine Injection (Benadryl Inje (11/15/20 06:30) Ketorolac Injection (Toradol Injection) (11/15/20 06:30) Ns Iv 1000 Ml (Sodium Chloride 0.9%) (11/15/20 06:30) Medications Given in ED Current Medications Medications Dose Ordered Sig/Judi Route Start Time Stop Time Status Last Admin Dose Admin Diphenhydramine HCl 50 mg ONCE ONCE IVP 11/15/20 06:30 11/15/20 06:31 DC 11/15/20 06:33 50 MG Ketorolac Tromethamine 30 mg ONCE ONCE IVP 11/15/20 06:30 11/15/20 06:31 DC 11/15/20 06:34 30 MG Prochlorperazine Edisylate 10 mg ONCE ONCE IV 11/15/20 06:30 11/15/20 06:31 DC 11/15/20 06:32 10 MG Vital Signs/I&O 11/15/20 06:09 Temp 36.9 Pulse 94 Resp 18 B/P (MAP) 182/123 (142) Pulse Ox 99 O2 Delivery Room Air Blood Pressure Mean: 142 Progress Progress Note : Time: 07:11 Progress Note Patient states her headache pain is improved. She is no longer nauseated. She states it is not gone but it is mostly improved. Patient desires discharge at this time. Recommended to continue home medications. Advised taking a second amlodipine this morning now that her nausea is controlled. Patient verbalized understanding. All questions are sought and answered. Patient is stable for discharge. Departure Impression Primary Impression: Nausea and vomiting Qualified Codes: R11.2 - Nausea with vomiting, unspecified Additional Impression: Migraine Qualified Codes: G43.909 - Migraine, unspecified, not intractable, without status migrainosus Disposition: 01 HOME, SELF-CARE Condition: Stable Departure-Patient Inst. Decision time for Depature: 07:12 Referrals: [facility] (PCP) Primary Care Physician AUDREY ELIZABETH (Family) Primary Care Physician Patient Instructions: Migraines (DC) Add. Discharge Instructions: Continue your home daily medications. Take a second dose of your amlodipine this morning now that your nausea and vomiting is controlled. Continue Imitrex and egik-bvv-[id number] medications as needed for headache. Come back to the emergency room for reevaluation if you have any return of symptoms, worsening symptoms or any other emergent concerning complaints. ARIELLA WARNER MD Nov 15, 2020 06:20
[2020-11-15] MEDS ORDERED: NS IV 1000 ML 1,000 ML IV SCH (06:30)
[2020-11-15] MEDS ORDERED: diphenhydrAMINE 50 MG/ML INJ (BENADRYL) IVP ONE (06:30)
[2020-11-15] MEDS ORDERED: PROCHLORPERAZINE 10 MG/2ML INJ (COMPAZINE) IV ONE (06:30)
[2020-11-15] MEDS ORDERED: KETOROLAC 30 MG/ML VIAL IVP ONE (06:30)
[2020-11-15 07:21] VITALS: BP 152/103
== END 2020-11-15 07:21 | disposition home or self-care (01) ==
LOC: EDUNIT# 05:35 → ER 05:38
DX: G43.909 Migraine, unspecified, not intractable, without status migrainosus (principal); J45.909 Unspecified asthma, uncomplicated; I10 Essential (primary) hypertension; K21.9 Gastro-esophageal reflux disease without esophagitis; G89.29 Other chronic pain; M54.9 Dorsalgia, unspecified; Z88.6 Allergy status to analgesic agent; Z79.899 Other long term (current) drug therapy; Z79.891 Long term (current) use of opiate analgesic
CPT/HCPCS: 96374; 96375

== ENCOUNTER 2020-11-27 19:00 | Emergency (ER) | payer SELFPAY ==
[~2020-11-27] VITALS: Ht 167.9 cm; Wt 86.3 kg
--- NOTE | 2020-11-27 19:11 | ED Abdominal Pain ---
General Chief Complaint: Abdominal/GI Problems Stated Complaint: VOMITING Nursing Triage Note: c/o intermittent n/v x 1 year Sepsis Screen: No Definite Risk Source of Information: Patient Exam Limitations: No Limitations History of Present Illness Date Seen by Provider: Nov 27, 2020 Time Seen by Provider: 19:10 Initial Comments To ER with nausea and vomiting. This particular episode started 4 days ago. History of hyperemesis cannabinoid syndrome. Continues to smoke marijuana. Timing/Duration: 1-2 Days Severity/Quality: Moderate Radiation: No Radiation Activities at Onset: None Associated Symptoms: Nausea/Vomiting Allergies and Home Medications Allergies Coded Allergies: morphine (Verified Allergy, Unknown, CAUSES "REBOUND HEADACHES", 08/29/20) PT HAS RECEIVED LORTAB & OXYCODONE IN THE PAST baclofen (Verified Adverse Reaction, Severe, 06/13/15) PATIENT UNAWARE OF REACTION BUT WAS HOSPITALIZED AFTER TAKING MEDICATION AND WAS TOLD IT WAS A REACTION DUE TO THE MEDICATION SHE TOOK. meloxicam (Verified Adverse Reaction, Severe, 06/13/15) PATIENT UNAWARE OF REACTION BUT WAS HOSPITALIZED AFTER TAKING MEDICATION AND WAS TOLD IT WAS A REACTION DUE TO THE MEDICATION SHE TOOK. NSAIDS (Non-Steroidal Anti-Inflamma (Verified Adverse Reaction, Mild, have IBS and avoid NSAIDS, 12/04/12) Home Medications Amlodipine Besylate 10 Mg Tablet, 10 MG PO DAILY, (Reported) Ciprofloxacin HCl 500 Mg Tablet, 500 MG PO BID Prescribed by: CHANTEL MAYORGA on 10/16/20131 Dicyclomine HCl 20 Mg Tablet, 20 MG PO Q6H Prescribed by: CHANTEL MAYORGA on 10/16/20131 Diphenhydramine HCl 25 Mg Capsule, 25-50 MG PO Q6H PRN for ALLERGY SYMPTOMS, ( Reported) Famotidine 20 Mg Tablet, 20 MG PO BID Prescribed by: MARY BENTLEY on 10/27/20 0947 Hydrocodone Bit/Acetaminophen 1 Ea Tab, 1 EA PO Q4H PRN for PAIN-MODERATE (5-7) Prescribed by: LOLY BHATTI on 09/20/20 1328 Hyoscyamine Sulfate 0.125 Mg Tab.subl, 0.125 MG SL TID PRN for STOMACH SPASMS, (Reported) Hyoscyamine Sulfate 0.125 Mg Tab.subl, 0.25 MG SL Q4H Prescribed by: CHANTEL MAYORGA on 10/16/20131 Metronidazole 500 Mg Tablet, 500 MG PO QID Prescribed by: CHANTEL MAYORGA on 10/16/20131 Omeprazole 20 Mg Capsule.dr, 20 MG PO BID Prescribed by: MARY BENTLEY on 10/27/20 09 Ondansetron 4 Mg Tab.rapdis, 4 MG PO Q4H PRN for NAUSEA/VOMITING-1ST LINE, (Reported) Ondansetron 8 Mg Tab.rapdis, 8 MG PO Q6H Prescribed by: CHANTEL MAYORGA on 10/16/20131 Pantoprazole Sodium 40 Mg Tablet.dr, 40 MG PO DAILY, (Reported) Pantoprazole Sodium 40 Mg Tablet.dr, 40 MG PO DAILY Prescribed by: CHANTEL MAYORGA on 10/16/20131 Promethazine HCl 25 Mg Supp.rect, 25 MG RC Q6 Prescribed by: CHANTEL MAYORGA on 10/16/20131 Promethazine HCl 25 Mg Supp.rect, 25 MG RC TID PRN for NAUSEA/VOMITING-2ND LINE Prescribed by: MARY BENTLEY on 10/27/20946 Propranolol HCl 80 Mg Tablet, 80 MG PO TID, (Reported) Sucralfate 1 Gm Tablet, 1 GM PO QID, (Reported) Sumatriptan Succinate 100 Mg Tablet, 100 MG PO DAILY PRN for MIGRAINE, (Reported) Tizanidine HCl 4 Mg Tablet, 4 MG PO TID PRN for MUSCLE SPASMS, (Reported) Patient Home Medication List Home Medication List Reviewed: Yes Review of Systems Review of Systems Constitutional: see HPI EENTM: No Symptoms Reported Respiratory: No Symptoms Reported Cardiovascular: No Symptoms Reported Gastrointestinal: See HPI, Abdominal Pain, Nausea, Vomiting Genitourinary: No Symptoms Reported Musculoskeletal: no symptoms reported Skin: no symptoms reported Psychiatric/Neurological: No Symptoms Reported Endocrine: No Symptoms Reported Hematologic/Lymphatic: No Symptoms Reported Past Bnhslqx-Uthzfl-Uyighv Hx Patient Social History Alcohol Use: Denies Use Drug of Choice: MARIJUANA Smoking Status: Never a Smoker 2nd Hand Smoke Exposure: No Recent Infectious Disease Expo: No Recent Hopitalizations: No Immunizations Up To Date Tetanus Booster (TDap): Unknown PED Vaccines UTD: No Date of Pneumonia Vaccine: Mar 03, 2014 Date of Influenza Vaccine: Mar 03, 2015 Seasonal Allergies Seasonal Allergies: No Past Medical History Surgeries: Yes (EGD/COLONOSCOPY; LAPAROSCOPY) Abdominal, Bladder Surgery, Gallbladder, 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, Oophorectomy, Tubal Ligation Respiratory: Yes Asthma Currently Using CPAP: No Currently Using BIPAP: No Cardiac: Yes (BRADYCARDIA 2012) Hypertension, Syncope Neurological: Yes ("SEIZURES WITH LOW BLOOD PRESSURE" TX WITH PROPRANOLOL, PER PT) Seizure Disorder 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 Disorders: Yes (HYST 2005--NO PHYSICIAN DOCUMENTATION OF ANY KIND OF CANCER) 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 Sexually Transmitted Disease: Yes (HPV) HIV/AIDS: No Genitourinary: Yes Bladder Infection Gastrointestinal: Yes (CHRONIC N/V/ABD PAIN; CANNIBUS HYPEREMESIS, history intussusception) Gastroesophageal Reflux, Pancreatitis, Irritable Bowel Musculoskeletal: Yes Chronic Back Pain Endocrine: No HEENT: Yes (POOR DENTITION) Loss of Vision: Denies Hearing Impairment: Denies Cancer: No (NO PHYSICAN DOCUMENTAION/VERIFICATION OF ANY KIND OF CANCER) Cervical, Colon Psychosocial: Yes (THC USE) Anxiety, Depression Integumentary: No Blood Disorders: No Adverse Reaction/Blood Tranf: No Family Medical History Diabetes mellitus 19 FATHER FHx: brain tumor 19 MOTHER HPV infection G8 SISTER No Family History of: AIDS Abdominal aortic aneurysm [place]'s disease Alcoholism Alzheimer's disease Aphasia Arthritis Asthma Cancer of mouth Cardiovascular disease Cataracts Colon cancer Completed stroke Congenital disease Congenital heart disease Coronary thrombosis Cystic fibrosis Deafness or hearing loss Dementia Drug abuse Dysphasia Fibrocystic disease of breast Gastroenteritis Glaucoma Headache disorder Hypercholesterolemia Hypertension Infertility Kidney disease Myocardial infarction Neoplasm Not obtainable due to adoption Osteoporosis Parkinson's disease Prostate cancer Psychosocial problem Respiratory disorder Seizure disorder Severe allergy Thyroid disease Tuberculosis Visual disorder Heart Disease, Hypertension, Other Conditions/Hx PAST SURGICAL HISTORY: -09/20/20--LAPAROSCOPY FOR INTUSSCEPTION BY DR. BHATTI -08/24/20 --EGD/COLONOSCOPY--DX GASTRITIS/ESOPHAGITIS -CHOLECYSTECTOMY -BILATERAL TUBAL LIGATION -HYSTERECTOMY/BILATERAL SALPINGO-OOPHORECTOMY 2005 -BLADDER SLING/LATER REMOVED -CARDIAC CATH 2012--NORMAL Physical Exam Vital Signs Vital Signs - First Documented 11/27/20 19:06 Temp 36.5 Pulse 115 Resp 18 B/P (MAP) 193/117 (142) Pulse Ox 98 O2 Delivery Room Air Capillary Refill : Less Than 3 Seconds Height/Weight/BMI Height: 5'6.00" Weight: 203lbs. 6.4oz. 92.781788ic; 30.00 BMI Method:Stated General Appearance: WD/WN, no apparent distress HEENT: PERRL/EOMI, normal ENT inspection Respiratory: no respiratory distress, no accessory muscle use Cardiovascular: regular rate, rhythm, no murmur Gastrointestinal: normal bowel sounds, non tender, soft Neurologic/Psychiatric: alert, normal mood/affect, oriented x 3 Skin: normal color, warm/dry Progress/Results/Core Measures Results/Orders Lab Results Laboratory Tests Test 11/27/20 19:15 Range/Units White Blood Count 10.6 4.3-11.0 10^3/uL Red Blood Count 4.92 3.80-5.11 10^6/uL Hemoglobin 13.3 11.5-16.0 g/dL Hematocrit 43 35-52 % Mean Corpuscular Volume 86 80-99 fL Mean Corpuscular Hemoglobin 27 25-34 pg Mean Corpuscular Hemoglobin Concent 31 L 32-36 g/dL Red Cell Distribution Width 15.4 H 10.0-14.5 % Platelet Count 417 H 130-400 10^3/uL Mean Platelet Volume 9.3 9.0-12.2 fL Immature Granulocyte % (Auto) 0 % Neutrophils (%) (Auto) 63 42-75 % Lymphocytes (%) (Auto) 28 12-44 % Monocytes (%) (Auto) 8 0-12 % Eosinophils (%) (Auto) 0 0-10 % Basophils (%) (Auto) 0 0-10 % Neutrophils # (Auto) 6.7 1.8-7.8 10^3/uL Lymphocytes # (Auto) 2.9 1.0-4.0 10^3/uL Monocytes # (Auto) 0.9 0.0-1.0 10^3/uL Eosinophils # (Auto) 0.0 0.0-0.3 10^3/uL Basophils # (Auto) 0.0 0.0-0.1 10^3/uL Immature Granulocyte # (Auto) 0.0 0.0-0.1 10^3/uL Sodium Level 140 135-145 MMOL/L Potassium Level 3.8 3.6-5.0 MMOL/L Chloride Level 103 98-107 MMOL/L Carbon Dioxide Level 23 21-32 MMOL/L Anion Gap 14 5-14 MMOL/L Blood Urea Nitrogen 10 7-18 MG/DL Creatinine 1.07 0.60-1.30 MG/DL Estimat Glomerular Filtration Rate 56 BUN/Creatinine Ratio 9 Glucose Level 108 H 70-105 MG/DL Calcium Level 10.6 H 8.5-10.1 MG/DL Corrected Calcium 8.5-10.1 MG/DL Total Bilirubin 0.4 0.1-1.0 MG/DL Aspartate Amino Transf (AST/SGOT) 26 5-34 U/L Alanine Aminotransferase (ALT/SGPT) 23 0-55 U/L Alkaline Phosphatase 99 40-136 U/L Total Protein 8.6 H 6.4-8.2 GM/DL Albumin 4.7 H 3.2-4.5 GM/DL Lipase 44 8-78 U/L Human Chorionic Gonadotropin, Quant < 5 <5 MIU/ML Serum Test, Qualitative POSITIVE NEGATIVE My Orders Orders - FAMILIA ELISE CAR PORTER Cbc With Automated Diff (11/27/20 19:05) Comprehensive Metabolic Panel (11/27/20 19:05) Lipase (11/27/20 19:05) Ed Iv/Invasive Line Start (11/27/20 19:05) Hcg,Qualitative Serum (11/27/20 19:05) Ns Iv 1000 Ml (Sodium Chloride 0.9%) (11/27/20 19:15) Haloperidol Injection (Haldol Injectio (11/27/20 19:15) Diphenhydramine Injection (Benadryl Inje (11/27/20 19:15) Hcg,Quantitative (11/27/20 19:51) Fibrin Degradation Products (11/27/20 20:29) Hydrocodone/Apap 5/325 Tablet (Lortab 5 (11/27/20 20:30) Promethazine Injection (Phenergan Injec (11/27/20 20:30) Medications Given in ED Current Medications Medications Dose Ordered Sig/Judi Route Start Time Stop Time Status Last Admin Dose Admin Diphenhydramine HCl 25 mg ONCE ONCE IVP 11/27/20 19:15 11/27/20 19:16 DC 11/27/20 19:30 25 MG Haloperidol Lactate 3 mg ONCE ONCE IV 11/27/20 19:15 11/27/20 19:16 DC 11/27/20 19:30 3 MG Vital Signs/I&O 11/27/20 19:06 Temp 36.5 Pulse 115 Resp 18 B/P (MAP) 193/117 (142) Pulse Ox 98 O2 Delivery Room Air Blood Pressure Mean: 142 Departure Communication (Admissions) After reviewing her positive test I discussed hysterectomy status with the patient, she has had a hysterectomy. Impression Primary Impression: Nausea & vomiting Disposition: 01 HOME, SELF-CARE Condition: Improved Departure-Patient Inst. Decision time for Depature: 19:20 Referrals: [facility] (PCP) Primary Care Physician AUDREY ELIZABETH (Family) Primary Care Physician Patient Instructions: No Instuctions Given Add. Discharge Instructions: 1. Follow-up with your primary care provider this week for a repeat test. All discharge instructions reviewed with patient and/or family. Voiced understanding. FAMILIA ELISE CAR PORTER Nov 27, 2020 19:11
[2020-11-27] MEDS ORDERED: diphenhydrAMINE 50 MG/ML INJ (BENADRYL) IVP ONE (19:15)
[2020-11-27] MEDS ORDERED: NS IV 1000 ML 1,000 ML IV SCH (19:15)
[2020-11-27] MEDS ORDERED: HALOPERIDOL 5 MG/ML (HALDOL) VIAL IV ONE (19:15)
[2020-11-27 19:20] LABS: BASOPHILS % (AUTO) 0 % (0-10); EOSINOPHILS % (AUTO) 0 % (0-10); HEMATOCRIT 43 % (35-52); HEMOGLOBIN 13.3 g/dL (11.5-16.0); LYMPHOCYTES # (AUTO) 2.9 10^3/uL (1.0-4.0); LYMPHOCYTES % (AUTO) 28 % (12-44); MEAN CORPUSCULAR HEMOGLOBIN 27 pg (25-34); MEAN CORPUSCULAR HGB CONC 31 g/dL (32-36); MEAN CORPUSCULAR VOLUME 86 fL (80-99); MEAN PLATELET VOLUME 9.3 fL (9.0-12.2); MONOCYTES # (AUTO) 0.9 10^3/uL (0.0-1.0); MONOCYTES % (AUTO) 8 % (0-12); NEUTROPHILS # (AUTO) 6.7 10^3/uL (1.8-7.8); NEUTROPHILS % (AUTO) 63 % (42-75); PLATELET COUNT 417 10^3/uL (130-400); WHITE BLOOD COUNT 10.6 10^3/uL (4.3-11.0)
[2020-11-27 19:40] LABS: ALANINE AMINOTRANSFERASE 23 U/L (0-55); ALBUMIN 4.7 GM/DL (3.2-4.5); ALKALINE PHOSPHATASE 99 U/L (40-136); BILIRUBIN,TOTAL 0.4 MG/DL (0.1-1.0); BUN/CREATININE RATIO 9; CALCIUM 10.6 MG/DL (8.5-10.1); CARBON DIOXIDE 23 MMOL/L (21-32); CHLORIDE 103 MMOL/L (98-107); CREATININE SERUM 1.07 MG/DL (0.60-1.30); GFR ESTIMATED 56; GLUCOSE 108 MG/DL (70-105); LIPASE 44 U/L (8-78); POTASSIUM 3.8 MMOL/L (3.6-5.0); SODIUM 140 MMOL/L (135-145); TOTAL PROTEIN 8.6 GM/DL (6.4-8.2)
[2020-11-27] MEDS ORDERED: HYDROcodone/APAP 5 MG/325 MG (LORTAB) TAB PO ONE (20:30)
[2020-11-27] MEDS ORDERED: PROMETHAZINE INJ 25 MG/ML (PHENERGAN) AMP IVP ONE (20:30)
[2020-11-27 21:03] VITALS: BP 158/94
== END 2020-11-27 21:04 | disposition home or self-care (01) ==
LOC: EDUNIT# 19:00 → ER 19:01
DX: R11.2 Nausea with vomiting, unspecified (principal); J45.909 Unspecified asthma, uncomplicated; I10 Essential (primary) hypertension; K21.9 Gastro-esophageal reflux disease without esophagitis; G89.29 Other chronic pain; M54.9 Dorsalgia, unspecified; Z79.899 Other long term (current) drug therapy; Z79.891 Long term (current) use of opiate analgesic
CPT/HCPCS: 36415; 80053; 83690; 84702; 84703; 85025; 85379; 96374; 96375

== ENCOUNTER 2020-12-06 21:13 | Emergency (ER) | payer SELFPAY ==
[~2020-12-06] VITALS: Ht 167.7 cm; Wt 97.0 kg
[2020-12-06] MEDS ORDERED: PROMETHAZINE INJ 25 MG/ML (PHENERGAN) AMP IVP STA (21:50)
[2020-12-06] MEDS ORDERED: LACTATED RINGERS 1,000 ML IV STA (21:50)
[2020-12-06] MEDS ORDERED: fentaNYL INJ 100 MCG/2 ML AMP IVP STA (21:50)
[2020-12-06 21:58] LABS: BASOPHILS % (AUTO) 0 % (0-10); EOSINOPHILS # (AUTO) 0.1 10^3/uL (0.0-0.3); EOSINOPHILS % (AUTO) 1 % (0-10); HEMATOCRIT 39 % (35-52); HEMOGLOBIN 12.2 g/dL (11.5-16.0); LYMPHOCYTES # (AUTO) 2.5 10^3/uL (1.0-4.0); LYMPHOCYTES % (AUTO) 28 % (12-44); MEAN CORPUSCULAR HEMOGLOBIN 27 pg (25-34); MEAN CORPUSCULAR HGB CONC 31 g/dL (32-36); MEAN CORPUSCULAR VOLUME 87 fL (80-99); MEAN PLATELET VOLUME 9.6 fL (9.0-12.2); MONOCYTES # (AUTO) 0.8 10^3/uL (0.0-1.0); MONOCYTES % (AUTO) 9 % (0-12); NEUTROPHILS # (AUTO) 5.5 10^3/uL (1.8-7.8); NEUTROPHILS % (AUTO) 62 % (42-75); PLATELET COUNT 392 10^3/uL (130-400); WHITE BLOOD COUNT 8.9 10^3/uL (4.3-11.0)
--- NOTE | 2020-12-06 21:58 | ED GI ---
General Chief Complaint: Abdominal/GI Problems Stated Complaint: VOMMITTING, STOMACH PAIN Source of Information: Patient Exam Limitations: No Limitations History of Present Illness Date Seen by Provider: Dec 06, 2020 Time Seen by Provider: 21:37 Initial Comments Here with report of multiple episodes of vomiting and then generalized stomach pain this afternoon. She tried her Zofran at home and that did not work. She has long history of this and is due to see a GI specialist. She also follows with on license of [facility] and Dr. Bhatti. Denies blood in her vomit or stool. Denies fever or chills. Denies sick contacts. She does not have Covid vaccination nor Covid infection history. This is very typical presentation for her though. Timing/Duration: 4-6 Hours Severity/Quality: Moderate Location: Generalized Abdomen Radiation: No Radiation Activities at Onset: None Modifying Factors: Worsens With Eating Associated Symptoms: No Back Pain, No Chest Pain, No Fever/Chills; Nausea/Vomiting; No Shortness of Air, No Weakness Allergies and Home Medications Allergies Coded Allergies: morphine (Verified Allergy, Unknown, CAUSES "REBOUND HEADACHES", 08/29/20) PT HAS RECEIVED LORTAB & OXYCODONE IN THE PAST baclofen (Verified Adverse Reaction, Severe, 06/13/15) PATIENT UNAWARE OF REACTION BUT WAS HOSPITALIZED AFTER TAKING MEDICATION AND WAS TOLD IT WAS A REACTION DUE TO THE MEDICATION SHE TOOK. meloxicam (Verified Adverse Reaction, Severe, 06/13/15) PATIENT UNAWARE OF REACTION BUT WAS HOSPITALIZED AFTER TAKING MEDICATION AND WAS TOLD IT WAS A REACTION DUE TO THE MEDICATION SHE TOOK. NSAIDS (Non-Steroidal Anti-Inflamma (Verified Adverse Reaction, Mild, have IBS and avoid NSAIDS, 12/04/12) Home Medications Amlodipine Besylate 10 Mg Tablet, 10 MG PO DAILY, (Reported) Ciprofloxacin HCl 500 Mg Tablet, 500 MG PO BID Prescribed by: CHANTEL MAYORGA on 10/16/20 013 Dicyclomine HCl 20 Mg Tablet, 20 MG PO Q6H Prescribed by: CHANTEL MAYORGA on 10/16/20131 Diphenhydramine HCl 25 Mg Capsule, 25-50 MG PO Q6H PRN for ALLERGY SYMPTOMS, (Reported) Famotidine 20 Mg Tablet, 20 MG PO BID Prescribed by: MARY BENTLEY on 10/27/20 0947 Hydrocodone Bit/Acetaminophen 1 Ea Tab, 1 EA PO Q4H PRN for PAIN-MODERATE (5-7) Prescribed by: LOLY BHATTI on 09/20/20 1328 Hyoscyamine Sulfate 0.125 Mg Tab.subl, 0.125 MG SL TID PRN for STOMACH SPASMS, (Reported) Hyoscyamine Sulfate 0.125 Mg Tab.subl, 0.25 MG SL Q4H Prescribed by: CHANTEL MAYORGA on 10/16/20131 Metronidazole 500 Mg Tablet, 500 MG PO QID Prescribed by: CHANTEL MAYORGA on 10/16/20131 Omeprazole 20 Mg Capsule.dr, 20 MG PO BID Prescribed by: MARY BENTLEY on 10/27/20 09 Ondansetron 4 Mg Tab.rapdis, 4 MG PO Q4H PRN for NAUSEA/VOMITING-1ST LINE, (Reported) Ondansetron 8 Mg Tab.rapdis, 8 MG PO Q6H Prescribed by: CHANTEL MAYORGA on 10/16/20131 Pantoprazole Sodium 40 Mg Tablet.dr, 40 MG PO DAILY, (Reported) Pantoprazole Sodium 40 Mg Tablet.dr, 40 MG PO DAILY Prescribed by: CHANTEL MAYORGA on 10/16/20131 Promethazine HCl 25 Mg Supp.rect, 25 MG RC Q6 Prescribed by: CHANTEL MAYORGA on 10/16/20131 Promethazine HCl 25 Mg Supp.rect, 25 MG RC TID PRN for NAUSEA/VOMITING-2ND LINE Prescribed by: MARY BENTLEY on 10/27/20 09 Propranolol HCl 80 Mg Tablet, 80 MG PO TID, (Reported) Sucralfate 1 Gm Tablet, 1 GM PO QID, (Reported) Sumatriptan Succinate 100 Mg Tablet, 100 MG PO DAILY PRN for MIGRAINE, (Reported) Tizanidine HCl 4 Mg Tablet, 4 MG PO TID PRN for MUSCLE SPASMS, (Reported) Patient Home Medication List Home Medication List Reviewed: Yes Review of Systems Review of Systems Constitutional: see HPI; No chills, No fever EENTM: No Symptoms Reported Respiratory: No Symptoms Reported Cardiovascular: No Symptoms Reported Gastrointestinal: See HPI Genitourinary: Denies Burning, Denies Frequency Musculoskeletal: no symptoms reported All Other Systems Reviewed Negative Unless Noted: Yes Past Avweqaf-Rtxccv-Glouca Hx Patient Social History Tobacco Use?: No Use of E-Cig and/or Vaping dev: No Substance use?: No Alcohol Use?: No Pt feels they are or have been: No Immunizations Up To Date Tetanus Booster (TDap): Unknown PED Vaccines UTD: No Seasonal Allergies Seasonal Allergies: No Past Medical History Surgeries: Yes (EGD/COLONOSCOPY; LAPAROSCOPY) Abdominal, Bladder Surgery, Gallbladder, 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, Oophorectomy, Tubal Ligation Respiratory: Yes Asthma Currently Using CPAP: No Currently Using BIPAP: No Cardiac: Yes (BRADYCARDIA 2012) Hypertension, Syncope Neurological: Yes ("SEIZURES WITH LOW BLOOD PRESSURE" TX WITH PROPRANOLOL, PER PT) Seizure Disorder 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 Disorders: Yes (HYST 2005--NO PHYSICIAN DOCUMENTATION OF ANY KIND OF CANCER) 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 Sexually Transmitted Disease: Yes (HPV) HIV/AIDS: No Genitourinary: Yes Bladder Infection Gastrointestinal: Yes (CHRONIC N/V/ABD PAIN; CANNIBUS HYPEREMESIS, history intussusception) Gastroesophageal Reflux, Pancreatitis, Irritable Bowel Musculoskeletal: Yes Chronic Back Pain Endocrine: No HEENT: Yes (POOR DENTITION) Loss of Vision: Denies Hearing Impairment: Denies Cancer: No (NO PHYSICAN DOCUMENTAION/VERIFICATION OF ANY KIND OF CANCER) Cervical, Colon Psychosocial: Yes (THC USE) Anxiety, Depression Integumentary: No Blood Disorders: No Adverse Reaction/Blood Tranf: No Family Medical History Reviewed Nursing Family Hx Diabetes mellitus 19 FATHER FHx: brain tumor 19 MOTHER HPV infection G8 SISTER No Family History of: AIDS Abdominal aortic aneurysm [place]'s disease Alcoholism Alzheimer's disease Aphasia Arthritis Asthma Cancer of mouth Cardiovascular disease Cataracts Colon cancer Completed stroke Congenital disease Congenital heart disease Coronary thrombosis Cystic fibrosis Deafness or hearing loss Dementia Drug abuse Dysphasia Fibrocystic disease of breast Gastroenteritis Glaucoma Headache disorder Hypercholesterolemia Hypertension Infertility Kidney disease Myocardial infarction Neoplasm Not obtainable due to adoption Osteoporosis Parkinson's disease Prostate cancer Psychosocial problem Respiratory disorder Seizure disorder Severe allergy Thyroid disease Tuberculosis Visual disorder Heart Disease, Hypertension, Other Conditions/Hx PAST SURGICAL HISTORY: -09/20/20--LAPAROSCOPY FOR INTUSSCEPTION BY DR. BHATTI -08/24/20 --EGD/COLONOSCOPY--DX GASTRITIS/ESOPHAGITIS -CHOLECYSTECTOMY -BILATERAL TUBAL LIGATION -HYSTERECTOMY/BILATERAL SALPINGO-OOPHORECTOMY 2005 -BLADDER SLING/LATER REMOVED -CARDIAC CATH 2012--NORMAL Physical Exam Vital Signs Vital Signs - First Documented 12/06/20 21:23 Temp 36.1 Pulse 120 Resp 18 B/P (MAP) 195/120 (145) Pulse Ox 98 O2 Delivery Room Air Capillary Refill : Height/Weight/BMI Height: 5'6.00" Weight: 203lbs. 6.4oz. [id number]; 30.00 BMI Method:Stated General Appearance: WD/WN, mild distress, obese HEENT: PERRL/EOMI, pharynx normal Neck: full range of motion, supple Respiratory: lungs clear, normal breath sounds Cardiovascular: no murmur, tachycardia Gastrointestinal: soft, tenderness (Mild diffuse) Extremities: non-tender, normal inspection, no pedal edema Back: normal inspection, no CVA tenderness, no vertebral tenderness Neurologic/Psychiatric: alert, oriented x 3 Skin: normal color, warm/dry Progress/Results/Core Measures Results/Orders Lab Results Laboratory Tests Test 12/06/20 21:43 Range/Units White Blood Count 8.9 4.3-11.0 10^3/uL Red Blood Count 4.54 3.80-5.11 10^6/uL Hemoglobin 12.2 11.5-16.0 g/dL Hematocrit 39 35-52 % Mean Corpuscular Volume 87 80-99 fL Mean Corpuscular Hemoglobin 27 25-34 pg Mean Corpuscular Hemoglobin Concent 31 L 32-36 g/dL Red Cell Distribution Width 15.9 H 10.0-14.5 % Platelet Count 392 130-400 10^3/uL Mean Platelet Volume 9.6 9.0-12.2 fL Immature Granulocyte % (Auto) 0 % Neutrophils (%) (Auto) 62 42-75 % Lymphocytes (%) (Auto) 28 12-44 % Monocytes (%) (Auto) 9 0-12 % Eosinophils (%) (Auto) 1 0-10 % Basophils (%) (Auto) 0 0-10 % Neutrophils # (Auto) 5.5 1.8-7.8 10^3/uL Lymphocytes # (Auto) 2.5 1.0-4.0 10^3/uL Monocytes # (Auto) 0.8 0.0-1.0 10^3/uL Eosinophils # (Auto) 0.1 0.0-0.3 10^3/uL Basophils # (Auto) 0.0 0.0-0.1 10^3/uL Immature Granulocyte # (Auto) 0.0 0.0-0.1 10^3/uL Sodium Level 146 H 135-145 MMOL/L Potassium Level 3.3 L 3.6-5.0 MMOL/L Chloride Level 108 H 98-107 MMOL/L Carbon Dioxide Level 24 21-32 MMOL/L Anion Gap 14 5-14 MMOL/L Blood Urea Nitrogen 5 L 7-18 MG/DL Creatinine 1.04 0.60-1.30 MG/DL Estimat Glomerular Filtration Rate 58 BUN/Creatinine Ratio 5 Glucose Level 107 H 70-105 MG/DL Calcium Level 10.7 H 8.5-10.1 MG/DL Corrected Calcium 8.5-10.1 MG/DL Total Bilirubin 0.4 0.1-1.0 MG/DL Aspartate Amino Transf (AST/SGOT) 19 5-34 U/L Alanine Aminotransferase (ALT/SGPT) 22 0-55 U/L Alkaline Phosphatase 93 40-136 U/L C-Reactive Protein High Sensitivity 0.62 H 0.00-0.50 MG/DL Total Protein 8.2 6.4-8.2 GM/DL Albumin 4.7 H 3.2-4.5 GM/DL My Orders Orders - JORGE LUIS DURAN MD Cbc With Automated Diff (12/06/20 21:50) Comprehensive Metabolic Panel (12/06/20 21:50) Hs C Reactive Protein (12/06/20 21:50) Promethazine Injection (Phenergan Injec (12/06/20 21:50) Ondansetron Injection (Zofran Injectio (12/06/20 22:00) Lactated Ringers (Lr 1000 Ml Iv Solution (12/06/20 21:50) Ed Iv/Invasive Line Start (12/06/20 21:50) Fentanyl Inj (Sublimaze Injection) (12/06/20 21:50) Diphenhydramine Injection (Benadryl Inje (12/06/20 22:00) Ondansetron Injection (Zofran Injectio (12/07/20 00:15) Fentanyl Inj (Sublimaze Injection) (12/07/20 00:08) Haloperidol Injection (Haldol Injectio (12/07/20 01:15) D5 Ns 1000 Ml Iv Solution (Dextrose 5%/0 (12/07/20 01:38) Medications Given in ED Current Medications Medications Dose Ordered Sig/Judi Route Start Time Stop Time Status Last Admin Dose Admin Diphenhydramine HCl 25 mg ONCE ONCE IVP 12/06/20 22:00 12/06/20 22:01 DC 12/06/20 22:13 25 MG Haloperidol Lactate 3 mg ONCE ONCE IV 12/07/20 01:15 12/07/20 01:17 DC 12/07/20 01:24 3 MG Ondansetron HCl 4 mg ONCE ONCE IVP 12/06/20 22:00 12/06/20 22:01 DC 12/06/20 22:13 4 MG Ondansetron HCl 4 mg ONCE ONCE IVP 12/07/20 00:15 12/07/20 00:16 DC 12/07/20 00:13 4 MG Vital Signs/I&O 12/06/20 21:23 Temp 36.1 Pulse 120 Resp 18 B/P (MAP) 195/120 (145) Pulse Ox 98 O2 Delivery Room Air Progress Progress Note : Progress Note Seen and evaluated. IV, labs, LR 1 L bolus, Zofran 4 mg IV, Phenergan 25 mg IV, Benadryl 25 mg IV and fentanyl 50 mcg IV ordered. Monitor patient. 0135: We have repeated Zofran 4 mg IV for persistent nausea and vomiting. This was foll owed by repeat dose of fentanyl at 75 mcg IV. We have recently just initiated Haldol 3 mg IV as she does have history of cannabis hyperemesis syndrome. Patient denies marijuana currently. We will give D5 NS 1 L bolus now as she is still vomiting. Monitor patient. 0250: Patient is actually feeling better now and feels like she can tolerate going home. Discharged home with return precautions. Patient verbalized understanding of instructions and agreement with plan. She asked for a work note which was given. Departure Impression Primary Impression: Nausea and vomiting Qualified Codes: R11.2 - Nausea with vomiting, unspecified Additional Impression: Upper abdominal pain Disposition: HOME, SELF-CARE Condition: Improved Departure-Patient Inst. Decision time for Depature: 02:52 Referrals: [facility] (PCP) Primary Care Physician AUDREY ELIZABETH (Family) Primary Care Physician Patient Instructions: Nausea and Vomiting, Adult, Severe Abdominal Pain, Adult (DC) Add. Discharge Instructions: All discharge instructions reviewed with patient and/or family. Voiced understanding. Clear liquid or light diet for the next 12 to 24 hours and then advance as tolerated. Follow-up with your doctor as scheduled. Return for worse pain, fever, vomiting, weakness, breathing problems or other concerns as needed. Work/School Note: Work Release Form Date Seen in the Emergency Department: Dec 06, 2020 Return to Work: Dec 08, 2020 Restrictions: No Restrictions JORGE LUIS DURAN MD Dec 06, 2020 21:58
[2020-12-06] MEDS ORDERED: diphenhydrAMINE 50 MG/ML INJ (BENADRYL) IVP ONE (22:00)
[2020-12-06] MEDS ORDERED: ONDANSETRON 4 MG/2 ML (SDV) Z0FRAN IVP ONE (22:00)
[2020-12-06 22:03] LABS: ALBUMIN 4.7 GM/DL (3.2-4.5); CHLORIDE 108 MMOL/L (98-107); POTASSIUM 3.3 MMOL/L (3.6-5.0); SODIUM 146 MMOL/L (135-145)
[2020-12-06 22:04] LABS: CALCIUM 10.7 MG/DL (8.5-10.1)
[2020-12-06 22:05] LABS: GLUCOSE 107 MG/DL (70-105); TOTAL PROTEIN 8.2 GM/DL (6.4-8.2)
[2020-12-06 22:07] LABS: BILIRUBIN,TOTAL 0.4 MG/DL (0.1-1.0); CARBON DIOXIDE 24 MMOL/L (21-32)
[2020-12-06 22:09] LABS: ALKALINE PHOSPHATASE 93 U/L (40-136); CREATININE SERUM 1.04 MG/DL (0.60-1.30); GFR ESTIMATED 58
[2020-12-06 22:10] LABS: BUN/CREATININE RATIO 5
[2020-12-06 22:12] LABS: ALANINE AMINOTRANSFERASE 22 U/L (0-55)
[2020-12-07] MEDS ORDERED: fentaNYL INJ 100 MCG/2 ML AMP IVP STA (00:08)
[2020-12-07] MEDS ORDERED: ONDANSETRON 4 MG/2 ML (SDV) Z0FRAN IVP ONE (00:15)
[2020-12-07] MEDS ORDERED: HALOPERIDOL 5 MG/ML (HALDOL) VIAL IV ONE (01:15)
[2020-12-07] MEDS ORDERED: D5 NS 1000 ML IV SOLUTION 1,000 ML IV STA (01:38)
[2020-12-07 03:13] VITALS: BP 153/118
[2020-12-07] MEDS ORDERED: PROM25SU44 RC (16:04)
== END 2020-12-07 03:05 | disposition home or self-care (01) ==
LOC: EDUNIT# 21:13 → ER 21:16
DX: R11.2 Nausea with vomiting, unspecified (principal); R10.84 Generalized abdominal pain; E66.9 Obesity, unspecified; J45.909 Unspecified asthma, uncomplicated; I10 Essential (primary) hypertension; K21.9 Gastro-esophageal reflux disease without esophagitis; G89.29 Other chronic pain; M54.9 Dorsalgia, unspecified; Z68.30 Body mass index [BMI] 30.0-30.9, adult; Z79.891 Long term (current) use of opiate analgesic; Z79.899 Other long term (current) drug therapy
CPT/HCPCS: 36415; 80053; 85025; 86141

== ENCOUNTER 2020-12-07 12:23 | Emergency (ER) | payer SELFPAY ==
[~2020-12-07] VITALS: Ht 167 cm; Wt 94.3 kg
--- NOTE | 2020-12-07 12:41 | ED GI ---
General Chief Complaint: Abdominal/GI Problems Stated Complaint: N/V Source of Information: Patient Exam Limitations: No Limitations History of Present Illness Date Seen by Provider: Dec 07, 2020 Time Seen by Provider: 12:38 Initial Comments This is a 45-year-old female who presents to the ER with complaints of intractable nausea and vomiting. States that she was seen in the emergency department last night and treated for the same complaint. Was able to go home and sleep for about 3 hours before she started vomiting again. States that she has vomited approximately 6 times since she left the emergency department. Reports sharp constant pain in her abdomen, this is the same pain she always has during these episodes. She is following a GI specialist for chronic nausea vomiting. States that she has been able to take her Pepcid due to her vomiting. Denies fever, chills, cough, shortness of breath, dysuria, hematuria. Allergies and Home Medications Allergies Coded Allergies: morphine (Verified Allergy, Unknown, CAUSES "REBOUND HEADACHES", 08/29/20) PT HAS RECEIVED LORTAB & OXYCODONE IN THE PAST baclofen (Verified Adverse Reaction, Severe, 06/13/15) PATIENT UNAWARE OF REACTION BUT WAS HOSPITALIZED AFTER TAKING MEDICATION AND WAS TOLD IT WAS A REACTION DUE TO THE MEDICATION SHE TOOK. meloxicam (Verified Adverse Reaction, Severe, 06/13/15) PATIENT UNAWARE OF REACTION BUT WAS HOSPITALIZED AFTER TAKING MEDICATION AND WAS TOLD IT WAS A REACTION DUE TO THE MEDICATION SHE TOOK. NSAIDS (Non-Steroidal Anti-Inflamma (Verified Adverse Reaction, Mild, have IBS and avoid NSAIDS, 12/04/12) Home Medications Amlodipine Besylate 10 Mg Tablet, 10 MG PO DAILY, (Reported) Ciprofloxacin HCl 500 Mg Tablet, 500 MG PO BID Prescribed by: CHANTEL MAYORGA on 10/16/20 013 Dicyclomine HCl 20 Mg Tablet, 20 MG PO Q6H Prescribed by: CHANTEL MAYORGA on 10/16/20 013 Diphenhydramine HCl 25 Mg Capsule, 25-50 MG PO Q6H PRN for ALLERGY SYMPTOMS, (Reported) Famotidine 20 Mg Tablet, 20 MG PO BID Prescribed by: MARY BENTLEY on 10/27/20 0947 Hydrocodone Bit/Acetaminophen 1 Ea Tab, 1 EA PO Q4H PRN for PAIN-MODERATE (5-7) Prescribed by: LOLY BHATTI on 09/20/20 1328 Hyoscyamine Sulfate 0.125 Mg Tab.subl, 0.125 MG SL TID PRN for STOMACH SPASMS, (Reported) Hyoscyamine Sulfate 0.125 Mg Tab.subl, 0.25 MG SL Q4H Prescribed by: CHANTEL MAYORGA on 10/16/20131 Metronidazole 500 Mg Tablet, 500 MG PO QID Prescribed by: CHANTEL MAYORGA on 10/16/20131 Omeprazole 20 Mg Capsule.dr, 20 MG PO BID Prescribed by: MARY BENTLEY on 10/27/20 0947 Ondansetron 4 Mg Tab.rapdis, 4 MG PO Q4H PRN for NAUSEA/VOMITING-1ST LINE, (Reported) Ondansetron 8 Mg Tab.rapdis, 8 MG PO Q6H Prescribed by: CHANTEL MAYORGA on 10/16/20131 Pantoprazole Sodium 40 Mg Tablet.dr, 40 MG PO DAILY, (Reported) Pantoprazole Sodium 40 Mg Tablet.dr, 40 MG PO DAILY Prescribed by: CHANTEL MAYORGA on 10/16/20131 Promethazine HCl 25 Mg Supp.rect, 25 MG RC Q6 Prescribed by: CHNATEL MAYORGA on 10/16/20131 Promethazine HCl 25 Mg Supp.rect, 25 MG RC TID PRN for NAUSEA/VOMITING-2ND LINE Prescribed by: MARY BENTLEY on 10/27/20 0947 Propranolol HCl 80 Mg Tablet, 80 MG PO TID, (Reported) Sucralfate 1 Gm Tablet, 1 GM PO QID, (Reported) Sumatriptan Succinate 100 Mg Tablet, 100 MG PO DAILY PRN for MIGRAINE, (Reported) Tizanidine HCl 4 Mg Tablet, 4 MG PO TID PRN for MUSCLE SPASMS, (Reported) Patient Home Medication List Home Medication List Reviewed: Yes Past Fgvkcpc-Riswjl-Ilumsz Hx Immunizations Up To Date Tetanus Booster (TDap): Unknown PED Vaccines UTD: No Seasonal Allergies Seasonal Allergies: No Past Medical History Surgeries: Yes (EGD/COLONOSCOPY; LAPAROSCOPY) Abdominal, Bladder Surgery, Gallbladder, 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, Oophorectomy, Tubal Ligation Respiratory: Yes Asthma Currently Using CPAP: No Currently Using BIPAP: No Cardiac: Yes (BRADYCARDIA 2012) Hypertension, Syncope Neurological: Yes ("SEIZURES WITH LOW BLOOD PRESSURE" TX WITH PROPRANOLOL, PER PT) Seizure Disorder 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 Disorders: Yes (HYST 2005--NO PHYSICIAN DOCUMENTATION OF ANY KIND OF CANCER) 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 Sexually Transmitted Disease: Yes (HPV) HIV/AIDS: No Genitourinary: Yes Bladder Infection Gastrointestinal: Yes (CHRONIC N/V/ABD PAIN; CANNIBUS HYPEREMESIS, history intussusception) Gastroesophageal Reflux, Pancreatitis, Irritable Bowel Musculoskeletal: Yes Chronic Back Pain Endocrine: No HEENT: Yes (POOR DENTITION) Loss of Vision: Denies Hearing Impairment: Denies Cancer: No (NO PHYSICAN DOCUMENTAION/VERIFICATION OF ANY KIND OF CANCER) Cervical, Colon Psychosocial: Yes (THC USE) Anxiety, Depression Integumentary: No Blood Disorders: No Adverse Reaction/Blood Tranf: No Family Medical History Diabetes mellitus 19 FATHER FHx: brain tumor 19 MOTHER HPV infection G8 SISTER No Family History of: AIDS Abdominal aortic aneurysm [place]'s disease Alcoholism Alzheimer's disease Aphasia Arthritis Asthma Cancer of mouth Cardiovascular disease Cataracts Colon cancer Completed stroke Congenital disease Congenital heart disease Coronary thrombosis Cystic fibrosis Deafness or hearing loss Dementia Drug abuse Dysphasia Fibrocystic disease of breast Gastroenteritis Glaucoma Headache disorder Hypercholesterolemia Hypertension Infertility Kidney disease Myocardial infarction Neoplasm Not obtainable due to adoption Osteoporosis Parkinson's disease Prostate cancer Psychosocial problem Respiratory disorder Seizure disorder Severe allergy Thyroid disease Tuberculosis Visual disorder Heart Disease, Hypertension, Other Conditions/Hx PAST SURGICAL HISTORY: -09/20/20--LAPAROSCOPY FOR INTUSSCEPTION BY DR. BHATTI -08/24/20 --EGD/COLONOSCOPY--DX GASTRITIS/ESOPHAGITIS -CHOLECYSTECTOMY -BILATERAL TUBAL LIGATION -HYSTERECTOMY/BILATERAL SALPINGO-OOPHORECTOMY 2005 -BLADDER SLING/LATER REMOVED -CARDIAC CATH 2012--NORMAL Physical Exam Vital Signs Vital Signs - First Documented 12/07/20 12:36 Temp 37.0 Pulse 105 Resp 18 B/P (MAP) 148/115 (126) Pulse Ox 98 Capillary Refill : Height/Weight/BMI Height: 5'6.00" Weight: 203lbs. 6.4oz. 92.966526qa; 34.00 BMI Method:Stated Progress/Results/Core Measures Results/Orders Lab Results Laboratory Tests Test 12/07/20 12:42 Range/Units Urine Color YELLOW Urine Clarity CLEAR Urine pH 7.5 5-9 Urine Specific [place] 1.020 1.016-1.022 Urine Protein NEGATIVE NEGATIVE Urine Glucose (UA) NEGATIVE NEGATIVE Urine Ketones TRACE H NEGATIVE Urine Nitrite NEGATIVE NEGATIVE Urine Bilirubin NEGATIVE NEGATIVE Urine Urobilinogen 0.2 < = 1.0 MG/DL Urine Leukocyte Esterase NEGATIVE NEGATIVE Urine RBC (Auto) NEGATIVE NEGATIVE Urine RBC NONE /HPF Urine WBC 2-5 /HPF Urine Squamous Epithelial Cells 2-5 /HPF Urine Crystals NONE /LPF Urine Bacteria TRACE /HPF Urine Casts NONE /LPF Urine Mucus NEGATIVE /LPF Urine Culture Indicated NO My Orders Orders - LYN LUND RABBIT BREEDER Ua Culture If Indicated (12/07/20 12:25) Prochlorperazine Injection (Compazine In (12/07/20 12:45) Fentanyl Inj (Sublimaze Injection) (12/07/20 12:45) Famotidine Injection (Pepcid Injection) (12/07/20 12:45) Hydralazine Injection (Apresoline Inject (12/07/20 14:00) Fentanyl Inj (Sublimaze Injection) (12/07/20 14:30) Haloperidol Injection (Haldol Injectio (12/07/20 14:30) Ns Iv 1000 Ml (Sodium Chloride 0.9%) (12/07/20 15:16) Promethazine Injection (Phenergan Injec (12/07/20 15:30) Lorazepam Injection (Ativan Injection) (12/07/20 15:30) Medications Given in ED Current Medications Medications Dose Ordered Sig/Judi Route Start Time Stop Time Status Last Admin Dose Admin Famotidine 20 mg ONCE ONCE IVP 12/07/20 12:45 12/07/20 12:46 DC 12/07/20 13:14 20 MG Fentanyl Citrate 50 mcg ONCE ONCE IVP 12/07/20 14:30 12/07/20 14:31 DC 12/07/20 12:50 50 MCG Fentanyl Citrate 50 mcg Q1H PRN IVP 12/07/20 12:45 12/07/20 14:39 50 MCG Haloperidol Lactate 3 mg ONCE ONCE IM 12/07/20 14:30 12/07/20 14:31 DC 12/07/20 14:39 3 MG Hydralazine HCl 10 mg ONCE ONCE IV 12/07/20 14:00 12/07/20 14:01 DC 12/07/20 14:08 10 MG Prochlorperazine Edisylate 10 mg ONCE ONCE IV 12/07/20 12:45 12/07/20 12:46 DC 12/07/20 12:51 10 MG Vital Signs/I&O 12/07/20 12:36 Temp 37.0 Pulse 105 Resp 18 B/P (MAP) 148/115 (126) Pulse Ox 98 Departure Impression Primary Impression: Intractable vomiting Additional Impression: Recurrent abdominal pain Disposition: HOME, SELF-CARE Condition: Improved Departure-Patient Inst. Decision time for Depature: 16:02 Referrals: [facility] (PCP) Primary Care Physician AUDREY ELIZABETH (Family) Primary Care Physician Patient Instructions: Abdominal Pain, Adult ED Add. Discharge Instructions: Plan: 1. Follow up with your doctor. Please call to schedule appointment. 2. May use Phenergan suppositories as needed for nausea/vomiting. 3. Return for any new, concerning, or worsening symptoms. All discharge instructions reviewed with patient and/or family. Voiced understanding. Scripts Promethazine HCl (Promethazine Suppository) 25 Mg Supp.rect 25 MG RC Q6H PRN for NAUSEA/VOMITING-1ST LINE, #5 SUPP.RECT 0 Refills Prov: LYN LUND RABBIT BREEDER 12/07/20 LYN LUND RABBIT BREEDER Dec 07, 2020 12:41
[2020-12-07] MEDS ORDERED: FAMOTIDINE 20MG/2ML IV (PEPCID) IVP ONE (12:45)
[2020-12-07] MEDS ORDERED: PROCHLORPERAZINE 10 MG/2ML INJ (COMPAZINE) IV ONE (12:45)
[2020-12-07 12:47] LABS: BILIRUBIN,URINE NEGATIVE (NEGATIVE); CLARITY,URINE CLEAR; COLOR,URINE YELLOW; GLUCOSE, URINE (UA) NEGATIVE (NEGATIVE); KETONES,URINE TRACE (NEGATIVE); LEUKOCYTE ESTERASE ,URINE NEGATIVE (NEGATIVE); NITRITE,URINE NEGATIVE (NEGATIVE); PH,URINE 7.5 (5-9); PROTEIN,URINE NEGATIVE (NEGATIVE)
[2020-12-07] MEDS: fentaNYL INJ 100 MCG/2 ML AMP IVP PRN ×2 (12:50→14:39)
[2020-12-07 12:55] LABS: BACTERIA,URINE TRACE /HPF
[2020-12-07] MEDS ORDERED: hydrALAZINE (APESOLINE) 20 MG/ML VIAL IV ONE (14:00)
[2020-12-07] MEDS ORDERED: fentaNYL INJ 100 MCG/2 ML AMP IVP ONE (14:30)
[2020-12-07] MEDS ORDERED: HALOPERIDOL 5 MG/ML (HALDOL) VIAL IM ONE (14:30)
[2020-12-07] MEDS ORDERED: NS IV 1000 ML 1,000 ML IV STA (15:16)
[2020-12-07] MEDS ORDERED: PROMETHAZINE INJ 25 MG/ML (PHENERGAN) AMP IVP ONE (15:30)
[2020-12-07] MEDS ORDERED: LORazepam INJ 2 MG/ML (ATIVAN) VIAL IVP ONE (15:30)
[2020-12-07] MEDS ORDERED: PROM25SU44 RC (16:04)
[2020-12-07 16:11] VITALS: BP 149/102
== END 2020-12-07 16:11 | disposition home or self-care (01) ==
LOC: EDUNIT# 12:23 → ER 12:24
DX: R11.2 Nausea with vomiting, unspecified (principal); R10.9 Unspecified abdominal pain; J45.909 Unspecified asthma, uncomplicated; I10 Essential (primary) hypertension; K21.9 Gastro-esophageal reflux disease without esophagitis; G89.29 Other chronic pain; M54.9 Dorsalgia, unspecified; Z79.899 Other long term (current) drug therapy; Z79.891 Long term (current) use of opiate analgesic
CPT/HCPCS: 81000

== ENCOUNTER 2020-12-13 09:32 | Observation (INO) | payer SELFPAY ==
[~2020-12-13] VITALS: Ht 167.7 cm; Wt 99.1 kg
[2020-12-13 10:00] LABS: BASOPHILS % (AUTO) 0 % (0-10); EOSINOPHILS % (AUTO) 0 % (0-10); HEMATOCRIT 40 % (35-52); HEMOGLOBIN 12.7 g/dL (11.5-16.0); LYMPHOCYTES # (AUTO) 1.6 X 10^3 (1.0-4.0); LYMPHOCYTES % (AUTO) 24 % (12-44); MEAN CORPUSCULAR HEMOGLOBIN 27 pg (25-34); MEAN CORPUSCULAR HGB CONC 32 g/dL (32-36); MEAN CORPUSCULAR VOLUME 85 fL (80-99); MEAN PLATELET VOLUME 9.7 fL (9.0-12.2); MONOCYTES # (AUTO) 0.6 X 10^3 (0.0-1.0); MONOCYTES % (AUTO) 9 % (0-12); NEUTROPHILS # (AUTO) 4.5 X 10^3 (1.8-7.8); NEUTROPHILS % (AUTO) 66 % (42-75); PLATELET COUNT 397 10^3/uL (130-400); WHITE BLOOD COUNT 6.8 10^3/uL (4.3-11.0)
[2020-12-13] MEDS ORDERED: NS IV 1000 ML 1,000 ML IV SCH (10:00)
[2020-12-13] MEDS ORDERED: LACTATED RINGERS 1,000 ML IV ONE ×2 (10:00→12:00)
[2020-12-13] MEDS ORDERED: ONDANSETRON 4 MG/2 ML (SDV) Z0FRAN IVP ONE ×3 (10:00→13:45)
[2020-12-13] MEDS ORDERED: fentaNYL INJ 100 MCG/2 ML AMP IVP ONE ×3 (10:00→15:45)
[2020-12-13 10:09] LABS: ALBUMIN 4.5 GM/DL (3.2-4.5); CHLORIDE 104 MMOL/L (98-107); POTASSIUM 3.5 MMOL/L (3.6-5.0); SODIUM 148 MMOL/L (135-145)
[2020-12-13 10:11] LABS: GLUCOSE 128 MG/DL (70-105); TOTAL PROTEIN 7.8 GM/DL (6.4-8.2)
[2020-12-13 10:12] LABS: CARBON DIOXIDE 25 MMOL/L (21-32)
--- NOTE | 2020-12-13 10:12 | ED Abdominal Pain ---
General Chief Complaint: Abdominal/GI Problems Stated Complaint: ABD PAIN Nursing Triage Note: PT CO OF N/V RETCHING SINCE YESTERDAY, PT HAS HX OF CYCLIC VOMITING Source of Information: Patient Exam Limitations: No Limitations History of Present Illness Date Seen by Provider: Dec 13, 2020 Time Seen by Provider: 09:40 Initial Comments Patient to the ER by private conveyance from home with chief complaint of vomiting and epigastric abdominal pain since yesterday. She had laparoscopy by Dr. Bhatti around 2 months ago where he found some polyps that he removed and s aid were benign. She has had a hysterectomy and oophorectomy. No history of endometriosis. No fevers or chills cough or dysuria/hematuria. No history of kidney stones. Last oral intake was yesterday. She took a Zofran dissolvable this morning about 6:00 and is still unable to control her nausea and/or vomiting. She had a bowel movement yesterday which was normal. Allergies and Home Medications Allergies Coded Allergies: morphine (Verified Allergy, Unknown, CAUSES "REBOUND HEADACHES", 12/13/20) PT HAS RECEIVED LORTAB & OXYCODONE IN THE PAST baclofen (Verified Adverse Reaction, Severe, 12/13/20) PATIENT UNAWARE OF REACTION BUT WAS HOSPITALIZED AFTER TAKING MEDICATION AND WAS TOLD IT WAS A REACTION DUE TO THE MEDICATION SHE TOOK. meloxicam (Verified Adverse Reaction, Severe, 12/13/20) PATIENT UNAWARE OF REACTION BUT WAS HOSPITALIZED AFTER TAKING MEDICATION AND WAS TOLD IT WAS A REACTION DUE TO THE MEDICATION SHE TOOK. NSAIDS (Non-Steroidal Anti-Inflamma (Verified Adverse Reaction, Mild, have IBS and avoid NSAIDS, 12/13/20) Home Medications Amlodipine Besylate 10 Mg Tablet, 10 MG PO DAILY, (Reported) Ciprofloxacin HCl 500 Mg Tablet, 500 MG PO BID Prescribed by: CHANTEL MAYORGA on 10/16/20 013 Dicyclomine HCl 20 Mg Tablet, 20 MG PO Q6H Prescribed by: CHANTEL MAYORGA on 10/16/20 013 Diphenhydramine HCl 25 Mg Capsule, 25-50 MG PO Q6H PRN for ALLERGY SYMPTOMS, (Reported) Famotidine 20 Mg Tablet, 20 MG PO BID Prescribed by: MARY BENTLEY on 10/27/20 0947 Hydrocodone Bit/Acetaminophen 1 Ea Tab, 1 EA PO Q4H PRN for PAIN-MODERATE (5-7) Prescribed by: LOLY BHATTI on 09/20/20 1328 Hyoscyamine Sulfate 0.125 Mg Tab.subl, 0.125 MG SL TID PRN for STOMACH SPASMS, (Reported) Hyoscyamine Sulfate 0.125 Mg Tab.subl, 0.25 MG SL Q4H Prescribed by: CHANTEL MAYORGA on 10/16/20131 Metronidazole 500 Mg Tablet, 500 MG PO QID Prescribed by: CHANTEL MAYORGA on 10/16/20131 Omeprazole 20 Mg Capsule.dr, 20 MG PO BID Prescribed by: MARY BENTLEY on 10/27/20 0947 Ondansetron 4 Mg Tab.rapdis, 4 MG PO Q4H PRN for NAUSEA/VOMITING-1ST LINE, (Reported) Ondansetron 8 Mg Tab.rapdis, 8 MG PO Q6H Prescribed by: CHANTEL MAYORGA on 10/16/20131 Pantoprazole Sodium 40 Mg Tablet.dr, 40 MG PO DAILY, (Reported) Pantoprazole Sodium 40 Mg Tablet.dr, 40 MG PO DAILY Prescribed by: CHANTEL MAYORGA on 10/16/20131 Promethazine HCl 25 Mg Supp.rect, 25 MG RC Q6 Prescribed by: CHANTEL MAYORGA on 10/16/20131 Promethazine HCl 25 Mg Supp.rect, 25 MG RC TID PRN for NAUSEA/VOMITING-2ND LINE Prescribed by: MARY BENTLEY on 10/27/20 0947 Promethazine HCl 25 Mg Supp.rect, 25 MG RC Q6H PRN for NAUSEA/VOMITING-1ST LINE Prescribed by: LYN LUND on 12/07/20 1604 Propranolol HCl 80 Mg Tablet, 80 MG PO TID, (Reported) Sucralfate 1 Gm Tablet, 1 GM PO QID, (Reported) Sumatriptan Succinate 100 Mg Tablet, 100 MG PO DAILY PRN for MIGRAINE, (Reporte d) Tizanidine HCl 4 Mg Tablet, 4 MG PO TID PRN for MUSCLE SPASMS, (Reported) Patient Home Medication List Home Medication List Reviewed: Yes Review of Systems Review of Systems Constitutional: No chills, No diaphoresis EENTM: No Blurred Vision, No Double Vision Respiratory: Denies Cough, Denies Shortness of Air Cardiovascular: Denies Chest Pain, Denies Lightheadedness Gastrointestinal: See HPI, Abdominal Pain; Denies Constipated, Denies Diarrhea; Nausea, Poor Fluid Intake, Vomiting Genitourinary: Denies Burning, Denies Discharge Musculoskeletal: No back pain, No joint pain All Other Systems Reviewed Negative Unless Noted: Yes Past Lctwzga-Dgnidi-Vqccaf Hx Patient Social History Tobacco Use?: No Substance use?: No Alcohol Use?: No Pt feels they are or have been: No Immunizations Up To Date Tetanus Booster (TDap): Unknown PED Vaccines UTD: No Seasonal Allergies Seasonal Allergies: No Past Medical History Surgery/Hospitalization HX: SEE HX Surgeries: Yes (EGD/COLONOSCOPY; LAPAROSCOPY) Abdominal, Bladder Surgery, Gallbladder, 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, Oophorectomy, Tubal Ligation Respiratory: Yes Asthma Currently Using CPAP: No Currently Using BIPAP: No Cardiac: Yes (BRADYCARDIA 2012) Hypertension, Syncope Neurological: Yes ("SEIZURES WITH LOW BLOOD PRESSURE" TX WITH PROPRANOLOL, PER PT) Seizure Disorder 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 Disorders: Yes (HYST 2005--NO PHYSICIAN DOCUMENTATION OF ANY KIND OF CANCER) 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 Disorders: Denies LICENSED MIDWIFE History: 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 Sexually Transmitted Disease: Yes (HPV) HIV/AIDS: No Genitourinary: Yes Bladder Infection Gastrointestinal: Yes (CHRONIC N/V/ABD PAIN; CANNIBUS HYPEREMESIS, history in tussusception) Gastroesophageal Reflux, Pancreatitis, Irritable Bowel Musculoskeletal: Yes Chronic Back Pain Endocrine: No HEENT: Yes (POOR DENTITION) Loss of Vision: Denies Hearing Impairment: Denies Cancer: No (NO PHYSICAN DOCUMENTAION/VERIFICATION OF ANY KIND OF CANCER) Cervical, Colon Psychosocial: Yes (THC USE) Anxiety, Depression Integumentary: No Blood Disorders: No Adverse Reaction/Blood Tranf: No Family Medical History Diabetes mellitus 19 FATHER FHx: brain tumor 19 MOTHER HPV infection G8 SISTER No Family History of: AIDS Abdominal aortic aneurysm [place]hill's disease Alcoholism Alzheimer's disease Aphasia Arthritis Asthma Cancer of mouth Cardiovascular disease Cataracts Colon cancer Completed stroke Congenital disease Congenital heart disease Coronary thrombosis Cystic fibrosis Deafness or hearing loss Dementia Drug abuse Dysphasia Fibrocystic disease of breast Gastroenteritis Glaucoma Headache disorder Hypercholesterolemia Hypertension Infertility Kidney disease Myocardial infarction Neoplasm Not obtainable due to adoption Osteoporosis Parkinson's disease Prostate cancer Psychosocial problem Respiratory disorder Seizure disorder Severe allergy Thyroid disease Tuberculosis Visual disorder Heart Disease, Hypertension, Other Conditions/Hx PAST SURGICAL HISTORY: -09/20/20--LAPAROSCOPY FOR INTUSSCEPTION BY DR. BHATTI -08/24/20 --EGD/COLONOSCOPY--DX GASTRITIS/ESOPHAGITIS -CHOLECYSTECTOMY -BILATERAL TUBAL LIGATION -HYSTERECTOMY/BILATERAL SALPINGO-OOPHORECTOMY 2005 -BLADDER SLING/LATER REMOVED -CARDIAC CATH 2012--NORMAL Physical Exam Vital Signs Vital Signs - First Documented 12/13/20 09:47 Temp 36.6 Pulse 92 Resp 18 Pulse Ox 98 Capillary Refill : Less Than 3 Seconds Height/Weight/BMI Height: 5'6.00" Weight: 203lbs. 6.4oz. 92.882375wg; 32.00 BMI Method:Stated General Appearance: moderate distress, obese HEENT: PERRL/EOMI; No pharynx normal (Dry oropharynx) Neck: full range of motion, normal inspection Respiratory: lungs clear, normal breath sounds, no respiratory distress, no accessory muscle use Cardiovascular: normal peripheral pulses, regular rate, rhythm Peripheral Pulses: 2+ Radial Pulses (R), 2+ Radial Pulses (L) Gastrointestinal: normal bowel sounds, soft, no organomegaly, tenderness (All 4 quadrants generalized tenderness to light touch) Extremities: normal range of motion, non-tender, normal capillary refill Back: normal inspection, no vertebral tenderness, CVA tenderness (R) (To even light touch or percussion bilaterally), CVA tenderness (L) Neurologic/Psychiatric: alert, normal mood/affect, oriented x 3 Skin: normal color, warm/dry Progress/Results/Core Measures Results/Orders Lab Results Laboratory Tests Test 12/13/20 09:50 12/13/20 15:16 Range/Units White Blood Count 6.8 4.3-11.0 10^3/uL Red Blood Count 4.65 3.80-5.11 10^6/uL Hemoglobin 12.7 11.5-16.0 g/dL Hematocrit 40 35-52 % Mean Corpuscular Volume 85 80-99 fL Mean Corpuscular Hemoglobin 27 25-34 pg Mean Corpuscular Hemoglobin Concent 32 32-36 g/dL Red Cell Distribution Width 16.1 H 10.0-14.5 % Platelet Count 397 130-400 10^3/uL Mean Platelet Volume 9.7 9.0-12.2 fL Immature Granulocyte % (Auto) 0 % Neutrophils (%) (Auto) 66 42-75 % Lymphocytes (%) (Auto) 24 12-44 % Monocytes (%) (Auto) 9 0-12 % Eosinophils (%) (Auto) 0 0-10 % Basophils (%) (Auto) 0 0-10 % Neutrophils # (Auto) 4.5 1.8-7.8 X 10^3 Lymphocytes # (Auto) 1.6 1.0-4.0 X 10^3 Monocytes # (Auto) 0.6 0.0-1.0 X 10^3 Eosinophils # (Auto) 0.0 0.0-0.3 10^3/uL Basophils # (Auto) 0.0 0.0-0.1 10^3/uL Immature Granulocyte # (Auto) 0.0 0.0-0.1 10^3/uL Sodium Level 148 H 135-145 MMOL/L Potassium Level 3.5 L 3.6-5.0 MMOL/L Chloride Level 104 98-107 MMOL/L Carbon Dioxide Level 25 21-32 MMOL/L Anion Gap 19 H 5-14 MMOL/L Blood Urea Nitrogen 6 L 7-18 MG/DL Creatinine 0.96 0.60-1.30 MG/DL Estimat Glomerular Filtration Rate > 60 BUN/Creatinine Ratio 6 Glucose Level 128 H 70-105 MG/DL Calcium Level 10.0 8.5-10.1 MG/DL Corrected Calcium 9.6 8.5-10.1 MG/DL Total Bilirubin 0.6 0.1-1.0 MG/DL Aspartate Amino Transf (AST/SGOT) 50 H 5-34 U/L Alanine Aminotransferase (ALT/SGPT) 49 0-55 U/L Alkaline Phosphatase 97 40-136 U/L C-Reactive Protein High Sensitivity 0.82 H 0.00-0.50 MG/DL Total Protein 7.8 6.4-8.2 GM/DL Albumin 4.5 3.2-4.5 GM/DL Lipase 35 8-78 U/L Urine Color YELLOW Urine Clarity CLEAR Urine pH 7.5 5-9 Urine Specific [place] <=1.005 1.016-1.022 Urine Protein NEGATIVE NEGATIVE Urine Glucose (UA) NEGATIVE NEGATIVE Urine Ketones 1+ H NEGATIVE Urine Nitrite NEGATIVE NEGATIVE Urine Bilirubin NEGATIVE NEGATIVE Urine Urobilinogen 1.0 < = 1.0 MG/DL Urine Leukocyte Esterase NEGATIVE NEGATIVE Urine RBC (Auto) NEGATIVE NEGATIVE Urine RBC NONE /HPF Urine WBC 0-2 /HPF Urine Squamous Epithelial Cells 5-10 /HPF Urine Crystals NONE /LPF Urine Bacteria TRACE /HPF Urine Casts NONE /LPF Urine Mucus NEGATIVE /LPF Urine Culture Indicated NO Urine Opiates Screen NEGATIVE NEGATIVE Urine Oxycodone Screen NEGATIVE NEGATIVE Urine Methadone Screen NEGATIVE NEGATIVE Urine Propoxyphene Screen NEGATIVE NEGATIVE Urine Barbiturates Screen NEGATIVE NEGATIVE Ur Tricyclic Antidepressants Screen NEGATIVE NEGATIVE Urine Phencyclidine Screen NEGATIVE NEGATIVE Urine Amphetamines Screen NEGATIVE NEGATIVE Urine Methamphetamines Screen NEGATIVE NEGATIVE Urine Benzodiazepines Screen NEGATIVE NEGATIVE Urine Cocaine Screen NEGATIVE NEGATIVE Urine Cannabinoids Screen NEGATIVE NEGATIVE My Orders Orders - PAULA COLINDRES Ondansetron Injection (Zofran Injectio (12/13/20 10:00) Ed Iv/Invasive Line Start (12/13/20 09:47) Lactated Ringers (Lr 1000 Ml Iv Solution (12/13/20 10:00) Ua Culture If Indicated (12/13/20 09:47) Urine Bedside (12/13/20 09:47) Cbc With Automated Diff (12/13/20 09:47) Comprehensive Metabolic Panel (12/13/20 09:47) Hs C Reactive Protein (12/13/20 09:47) Ed Iv/Invasive Line Start (12/13/20 09:59) Ns Iv 1000 Ml (Sodium Chloride 0.9%) (12/13/20 10:00) Ondansetron Injection (Zofran Injectio (12/13/20 10:00) Fentanyl Inj (Sublimaze Injection) (12/13/20 10:00) Lipase (12/13/20 09:59) Promethazine Injection (Phenergan Injec (12/13/20 10:45) Diphenhydramine Injection (Benadryl Inje (12/13/20 10:45) Haloperidol Injection (Haldol Injectio (12/13/20 10:45) Fentanyl Inj (Sublimaze Injection) (12/13/20 12:00) Lactated Ringers (Lr 1000 Ml Iv Solution (12/13/20 12:00) Ct Abdomen/Pelvis W (12/13/20 12:35) Iohexol Injection (Omnipaque 350 Mg/Ml 1 (12/13/20 12:45) Received Contrast (Hold Metformin- Contr (12/13/20 12:45) Sodium Chloride Flush (Catheter Flush Sy (12/13/20 12:45) Ns (Ivpb) (Sodium Chloride 0.9% Ivpb Bag (12/13/20 12:45) Labetalol Injection (Normodyne Injection (12/13/20 13:45) Ondansetron Injection (Zofran Injectio (12/13/20 13:45) Ketorolac Injection (Toradol Injection) (12/13/20 13:45) Hydralazine Injection (Apresoline Inject (12/13/20 14:45) Drug Screen Stat (Urine) (12/13/20 15:37) Promethazine Injection (Phenergan Injec (12/13/20 15:45) Fentanyl Inj (Sublimaze Injection) (12/13/20 15:45) Medications Given in ED Current Medications Medications Dose Ordered Sig/Judi Route Start Time Stop Time Status Last Admin Dose Admin Diphenhydramine HCl 25 mg ONCE ONCE IVP 12/13/20 10:45 12/13/20 10:46 DC 12/13/20 11:10 25 MG Fentanyl Citrate 50 mcg ONCE ONCE IVP 12/13/20 10:00 12/13/20 10:01 DC 12/13/20 10:14 50 MCG Fentanyl Citrate 50 mcg ONCE ONCE IVP 12/13/20 12:00 12/13/20 12:01 DC 12/13/20 12:12 50 MCG Fentanyl Citrate 50 mcg ONCE ONCE IVP 12/13/20 15:45 12/13/20 15:46 DC 12/13/20 15:46 50 MCG Haloperidol Lactate 5 mg ONCE ONCE IM 12/13/20 10:45 12/13/20 10:46 DC 12/13/20 11:09 5 MG Hydralazine HCl 10 mg ONCE ONCE IV 12/13/20 14:45 12/13/20 14:46 DC 12/13/20 14:49 5 MG Iohexol 100 ml ONCE ONCE IV 12/13/20 12:45 12/13/20 12:46 DC 12/13/20 13:15 100 ML Ketorolac Tromethamine 30 mg ONCE ONCE IVP 12/13/20 13:45 12/13/20 13:47 DC 12/13/20 14:08 30 MG Labetalol HCl 20 mg ONCE ONCE IV 12/13/20 13:45 12/13/20 13:46 DC 12/13/20 14:08 20 MG Lactated Ringer's 1,000 ml @ 0 mls/hr Q0M ONCE IV 12/13/20 10:00 12/13/20 10:01 DC 12/13/20 10:14 1,000 MLS/HR Lactated Ringer's 1,000 ml @ 0 mls/hr Q0M ONCE IV 12/13/20 12:00 12/13/20 12:01 DC 12/13/20 12:13 1,000 MLS/HR Ondansetron HCl 8 mg ONCE ONCE IVP 12/13/20 10:00 12/13/20 10:01 VT 12/13/20 10:13 8 MG Ondansetron HCl 8 mg ONCE ONCE IVP 12/13/20 13:45 12/13/20 13:47 VT 12/13/20 14:08 8 MG Promethazine HCl 25 mg ONCE ONCE IVP 12/13/20 10:45 12/13/20 10:46 VT 12/13/20 11:10 25 MG Promethazine HCl 25 mg ONCE ONCE IVP 12/13/20 15:45 12/13/20 15:46 VT 12/13/20 15:46 25 MG Sodium Chloride 100 ml ONCE ONCE IV 12/13/20 12:45 12/13/20 12:46 VT 12/13/20 13:15 80 ML Vital Signs/I&O 12/13/20 12/13/20 09:47 12:12 Temp 36.6 36.6 Pulse 92 Resp 18 B/P (MAP) Pulse Ox 98 Progress Progress Note #1: Time: 10:13 Progress Note Patient had a intussusception seen on CT as well as on laparoscopic surgery notes from September. She has been back to the ER 9 times for same symptoms and has been difficult to treat her nausea. We'll start off with 8 of Zofran and add to that some Phenergan and Benadryl if it does not help. 58 mcg of fentanyl were ordered. A liter of fluids. We'll discuss the case with Dr. Bhatti. Progress Note #2: Time: 12:37 Progress Note Patient is no longer vomiting after the doses of Haldol, Phenergan, Benadryl and 8 of Zofran. She still says she does not feel like she can give a urine and has dry oral mucosa. Another liter of fluids has been ordered. We discussed the case with Dr. Bhatti and how she has been in here 9 times since September and he says if we see tearing confined intussusception he would consider taking her back to surgery. Progress Note #3: Time: 13:44 Progress Note Went to discuss the patient's CT results and she is tearful stating her pain and nausea is coming back. We will give her another 8 of Zofran and 30 of Toradol as well as labetalol for her blood pressure. We encouraged her to follow-up wit h a GI specialist. She says she is working on getting insurance so she can do that. Progress Note #4: Time: 15:39 Progress Note Patient still tearful, nauseated and still having abdominal pain. We will give her a dose of Phenergan and fentanyl. She will probably need to do an observation stay for intractable nausea and vomiting of uncertain etiology. Diagnostic Imaging Diagonstic Imaging: CT Plain Films/CT/US/NM/MRI: abdomen, pelvis Comments [facility]. [place], [place] NAME: DORIAN BROWN [facility] REC#: [id number] PT STATUS: REG ER : 1975 PHYSICIAN: PAULA COLINDRES MD ADMIT DATE: 12/13/20/ER Draft Date of Exam:12/13/20 CT ABDOMEN/PELVIS W EXAMINATION: CT abdomen and pelvis with intravenous contrast. TECHNIQUE: Multiple contiguous axial images were obtained through the abdomen and pelvis after the uneventful administration of intravenous contrast. All CT scans use one or more of the following dose optimizing techniques: automated exposure control, MA and/or KvP adjustment based on patient size and exam type or iterative reconstruction. HISTORY: Abdominal pain, nausea and vomiting. COMPARISON: 10/15/2020 FINDINGS: Limited views of the lower thorax are unremarkable. The liver is normal without focal lesion. There is no biliary ductal dilation. Gallbladder is surgically absent. Pancreas is normal. Spleen is normal. Adrenal glands are normal. The kidneys are normal. There is no hydronephrosis. Urinary bladder is normal. Visualized bowel is normal in caliber without obstruction or inflammation. No free fluid or air. No abdominal or pelvic lymphadenopathy. Aorta is normal in caliber without aneurysm. There are no suspicious osseous lesions. IMPRESSION: 1. No acute abnormality in the abdomen or pelvis. Dictated on workstation # [id number] Dict: 12/13/20 1320 Trans: 12/13/20 1323 [facility] [id number] Interpreted by: ANALY CONNORS MD Electronically signed by: Reviewed: Reviewed by Me Departure Communication (Admissions) Time/Spoke to Admitting Phy: 15:42 Discussed the case with Dr. Buenrostro and he agrees to observe the patient for IV fluids nausea medicines. Impression Primary Impression: Intractable nausea and vomiting Additional Impressions: Cyclical vomiting syndrome History of intussusception Disposition: ADMITTED INPATIENT Condition: Stable Admissions Decision to Admit Reason: Admit from ER (General) Decision to Admit/Date: Dec 13, 2020 Time/Decision to Admit Time: 15:28 Departure-Patient Inst. Referrals: [facility] (PCP) Primary Care Physician AUDREY ELIZABETH (Family) Primary Care Physician PAULA COLINDRES Dec 13, 2020 10:12
[2020-12-13 10:13] LABS: BILIRUBIN,TOTAL 0.6 MG/DL (0.1-1.0)
[2020-12-13 10:14] LABS: ALKALINE PHOSPHATASE 97 U/L (40-136)
[2020-12-13 10:15] LABS: CREATININE SERUM 0.96 MG/DL (0.60-1.30); GFR ESTIMATED > 60
[2020-12-13 10:16] LABS: BUN/CREATININE RATIO 6
[2020-12-13 10:18] LABS: ALANINE AMINOTRANSFERASE 49 U/L (0-55)
[2020-12-13] MEDS ORDERED: diphenhydrAMINE 50 MG/ML INJ (BENADRYL) IVP ONE (10:45)
[2020-12-13] MEDS ORDERED: PROMETHAZINE INJ 25 MG/ML (PHENERGAN) AMP IVP ONE ×2 (10:45→15:45)
[2020-12-13] MEDS ORDERED: HALOPERIDOL 5 MG/ML (HALDOL) VIAL IM ONE (10:45)
[2020-12-13] MEDS ORDERED: CATHETER FLUSH 10 ML SYR IV PRN ×2 (12:45→17:30)
[2020-12-13] MEDS ORDERED: HOLD METFORMIN - RECEIVED CONTRAST 20 ML VIAL IV SCH (12:45)
[2020-12-13] MEDS ORDERED: NS 100 ML (IVPB) BAG IV ONE (12:45)
[2020-12-13] MEDS ORDERED: IOHEXOL 350 MG/ML 100 ML (OMNIPAQUE 350) VIAL IV ONE (12:45)
--- NOTE | 2020-12-13 13:24 | Diagnostic Imaging Report ---
EXAMINATION: CT abdomen and pelvis with intravenous contrast. TECHNIQUE: Multiple contiguous axial images were obtained through the abdomen and pelvis after the uneventful administration of intravenous contrast. All CT scans use one or more of the following dose optimizing techniques: automated exposure control, MA and/or KvP adjustment based on patient size and exam type or iterative reconstruction. HISTORY: Abdominal pain, nausea and vomiting. COMPARISON: 10/15/2020 FINDINGS: Limited views of the lower thorax are unremarkable. The liver is normal without focal lesion. There is no biliary ductal dilation. Gallbladder is surgically absent. Pancreas is normal. Spleen is normal. Adrenal glands are normal. The kidneys are normal. There is no hydronephrosis. Urinary bladder is normal. Visualized bowel is normal in caliber without obstruction or inflammation. No free fluid or air. No abdominal or pelvic lymphadenopathy. Aorta is normal in caliber without aneurysm. There are no suspicious osseous lesions. IMPRESSION: 1. No acute abnormality in the abdomen or pelvis. Dictated by: Dictated on workstation # [id number]
[2020-12-13] MEDS ORDERED: KETOROLAC 30 MG/ML VIAL IVP ONE (13:45)
[2020-12-13] MEDS ORDERED: LABETALOL HCL 20 MG/4 ML VIAL IV ONE (13:45)
[2020-12-13] MEDS ORDERED: hydrALAZINE (APESOLINE) 20 MG/ML VIAL IV ONE (14:45)
[2020-12-13 15:22] LABS: BILIRUBIN,URINE NEGATIVE (NEGATIVE); CLARITY,URINE CLEAR; COLOR,URINE YELLOW; GLUCOSE, URINE (UA) NEGATIVE (NEGATIVE); KETONES,URINE 1+ (NEGATIVE); LEUKOCYTE ESTERASE ,URINE NEGATIVE (NEGATIVE); NITRITE,URINE NEGATIVE (NEGATIVE); PH,URINE 7.5 (5-9); PROTEIN,URINE NEGATIVE (NEGATIVE)
[2020-12-13 15:29] LABS: BACTERIA,URINE TRACE /HPF; WBC,URINE 0-2 /HPF
[2020-12-13 15:55] LABS: AMPHETAMINE SCREEN, URINE NEGATIVE (NEGATIVE); BARBITURATE SCREEN URINE NEGATIVE (NEGATIVE); BENZODIAZEPINES SCREEN URINE NEGATIVE (NEGATIVE); CANNABINOID SCREEN, URINE NEGATIVE (NEGATIVE); COCAINE SCREEN URINE NEGATIVE (NEGATIVE); METHADONE STAT NEGATIVE (NEGATIVE); METHAMPHETAMINE SCREEN URINE S NEGATIVE (NEGATIVE); OPIATE SCREEN URINE NEGATIVE (NEGATIVE); OXYCODONE STAT NEGATIVE (NEGATIVE); PROPOXYPHENE STAT NEGATIVE (NEGATIVE); TRICYCLIC ANTIDEPRESSANTS SCRE NEGATIVE (NEGATIVE)
[2020-12-13] MEDS ORDERED: diphenhydrAMINE 50 MG/ML INJ (BENADRYL) IV PRN (17:15)
[2020-12-13] MEDS ORDERED: HYDROmorphone 2 MG/ML VIAL (DILAUDID) IV PRN (17:30)
[2020-12-13] MEDS ORDERED: HALOPERIDOL 5 MG/ML (HALDOL) VIAL IM PRN (17:30)
[2020-12-13] MEDS ORDERED: BENZTROPINE 2 MG/2 ML INJ (COGENTIN) AMP IV PRN (17:30)
[2020-12-13] MEDS ORDERED: LABETALOL HCL 20 MG/4 ML VIAL IV PRN (17:30)
[2020-12-13] MEDS: LACTATED RINGERS 1,000 ML IV SCH (17:31)
[2020-12-13 17:51] VITALS: BP 161/92
[2020-12-13] MEDS ORDERED: CALCIUM CARBONATE 500 MG (TUMS) TAB.CHEW PO PRN (18:15)
[2020-12-13] MEDS: fentaNYL INJ 100 MCG/2 ML AMP IV PRN ×2 (18:27→22:44)
[2020-12-13] MEDS ORDERED: BISACODYL 10 MG SUPP (DULCOLAX) PR PRN (18:30)
[2020-12-13] MEDS ORDERED: ANTACID SUSP 30 ML UDC (MYLANTA) PO PRN (18:30)
[2020-12-13] MEDS ORDERED: polyethylene glycoL POWDER 17 GM (MIRALAX) PACK PO PRN (18:30)
[2020-12-13] MEDS: ENOXAPARIN 40 MG/0.4 ML (LOVENOX) SYR SC SCH (18:50)
[2020-12-13 20:00] VITALS: BP 185/96
[2020-12-13] MEDS: HYDROcodone/APAP 5 MG/325 MG (LORTAB) TAB PO PRN (20:35)
[2020-12-13] MEDS: PANTOPRAZOLE 40 MG (PROTONIX) TAB PO SCH (20:35)
[2020-12-13] MEDS: SUCRALFATE 1 GM (CARAFATE) TAB PO SCH (20:35)
[2020-12-13] MEDS: ONDANSETRON 4 MG/2 ML (SDV) Z0FRAN IV PRN (20:45)
[2020-12-13] MEDS: MELATONIN 3 MG TABLET PO PRN (20:48)
[2020-12-14] VITALS (7 sets, daily range): BP systolic 145–186; BP diastolic 83–119
[2020-12-14] MEDS: LACTATED RINGERS 1,000 ML IV SCH ×4 (00:16→19:59)
[2020-12-14] MEDS: PROMETHAZINE INJ 25 MG/ML (PHENERGAN) AMP IV PRN ×2 (00:27→08:25)
[2020-12-14] MEDS: HYDROmorphone 2 MG/ML VIAL (DILAUDID) IV PRN ×4 (02:15→20:17)
[2020-12-14] MEDS: SUCRALFATE 1 GM (CARAFATE) TAB PO SCH ×4 (05:53→20:13)
[2020-12-14] MEDS: fentaNYL INJ 100 MCG/2 ML AMP IV PRN ×3 (05:53→16:46)
[2020-12-14] MEDS: ONDANSETRON 4 MG/2 ML (SDV) Z0FRAN IV PRN ×2 (05:56→10:41)
[2020-12-14 06:39] LABS: BASOPHILS % (AUTO) 0 % (0-10); EOSINOPHILS % (AUTO) 0 % (0-10); HEMATOCRIT 34 % (35-52); HEMOGLOBIN 10.3 g/dL (11.5-16.0); LYMPHOCYTES # (AUTO) 2.2 10^3/uL (1.0-4.0); LYMPHOCYTES % (AUTO) 31 % (12-44); MEAN CORPUSCULAR HEMOGLOBIN 27 pg (25-34); MEAN CORPUSCULAR HGB CONC 31 g/dL (32-36); MEAN CORPUSCULAR VOLUME 88 fL (80-99); MEAN PLATELET VOLUME 10.4 fL (9.0-12.2); MONOCYTES # (AUTO) 0.7 10^3/uL (0.0-1.0); MONOCYTES % (AUTO) 9 % (0-12); NEUTROPHILS # (AUTO) 4.1 10^3/uL (1.8-7.8); NEUTROPHILS % (AUTO) 58 % (42-75); PLATELET COUNT 310 10^3/uL (130-400)
[2020-12-14 06:48] LABS: CHLORIDE 103 MMOL/L (98-107); POTASSIUM 3.1 MMOL/L (3.6-5.0); SODIUM 145 MMOL/L (135-145)
[2020-12-14 06:49] LABS: CALCIUM 8.7 MG/DL (8.5-10.1); GLUCOSE 106 MG/DL (70-105)
[2020-12-14 06:51] LABS: CARBON DIOXIDE 27 MMOL/L (21-32)
[2020-12-14 06:53] LABS: CREATININE SERUM 0.79 MG/DL (0.60-1.30); GFR ESTIMATED > 60
[2020-12-14 06:54] LABS: BUN/CREATININE RATIO 6
[2020-12-14] MEDS: PANTOPRAZOLE 40 MG (PROTONIX) TAB PO SCH ×2 (08:14→20:13)
[2020-12-14] MEDS: ACETAMINOPHEN 325 MG TABLET PO PRN ×2 (08:14→22:59)
[2020-12-14] MEDS ORDERED: hydrALAZINE (APESOLINE) 20 MG/ML VIAL IV PRN (08:15)
[2020-12-14] MEDS: amLODIPine 10 MG (NORVASC) TAB PO SCH (08:58)
[2020-12-14] MEDS: lisINopril 40 MG (PRINIVIL) TABLET PO SCH (08:58)
--- NOTE | 2020-12-14 12:00 | Consultation - Surgery ---
ADRIAN KINSEY MED STUDENT 12/14/20 1200: History of Present Illness History of Present Illness Patient Consulted On(jayda/time) 12/14/20 11:48 Date Seen by Provider: Dec 14, 2020 Time Seen by Provider: 11:25 Reason for Visit: N/V History of Present Illness 45 year old female being seen as a surgical consult for intractable nausea and vomiting. She has a history of cyclic vomiting episodes for approximately the last 10 years. This last episode started two days ago while she was at work. She has had constant nausea with atleast "20" bouts of emesis. It has been "yellowish" with no visible blood. She says nothing seems to help even her RX zofran. Nothing seems to make it any worse. She does have associated heartburn with the nausea and vomiting, with every episode just prior to vomiting, she has heartburn outside of the episodes as well, she takes pepcid and about 8-9 t ums/day which canseco not seem to help. She also states she gets "migraines" with a lot of these episodes, and states she currently has one. In the past she has not tried any elimination type diets to see if it would help. Since being admitted she has been able to tolerate liquids. She has had an EGD prior "about a year ago" with Dr. Gramajo which the patient reported only showed some esophageal irritation. She is not having changes in her urinary habits nor her bowel habits, but canseco report that if she did not take her dicyclomine she would not have a bm for a "long time". She also reports to me that three weeks ago she had a nonpainful BM that caused her to bleed bright red blood into the bowl and required the use of a pad, but has ceased since on its own with no intervention. She says this has never happened before, and has not happened since. Her last colonoscopy was 10 years ago performed at [facility], she states she had this done during her first initial work up for this cyclic vomiting approx 10 years ago. Allergies and Home Medications Allergies Coded Allergies: morphine (Verified Allergy, Unknown, CAUSES "REBOUND HEADACHES", 12/13/20) PT HAS RECEIVED LORTAB & OXYCODONE IN THE PAST baclofen (Verified Adverse Reaction, Severe, 12/13/20) PATIENT UNAWARE OF REACTION BUT WAS HOSPITALIZED AFTER TAKING MEDICATION AND WAS TOLD IT WAS A REACTION DUE TO THE MEDICATION SHE TOOK. meloxicam (Verified Adverse Reaction, Severe, 12/13/20) PATIENT UNAWARE OF REACTION BUT WAS HOSPITALIZED AFTER TAKING MEDICATION AND WAS TOLD IT WAS A REACTION DUE TO THE MEDICATION SHE TOOK. NSAIDS (Non-Steroidal Anti-Inflamma (Verified Adverse Reaction, Mild, have IBS and avoid NSAIDS, 12/13/20) Home Medications Amlodipine Besylate 10 Mg Tablet, 10 MG PO DAILY, (Reported) LAST FILLED 09-02-2020 #30/30 DAY SUPPLY Last Action: Reviewed Calcium Carbonate 400 Mg Tab.chew, 400-800 MG PO PRN PRN for HEARTBURN, (Reported) Last Action: Reviewed Dicyclomine HCl 20 Mg Tablet, 20 MG PO QID, (Reported) Last Action: Reviewed Diphenhydramine HCl 25 Mg Capsule, 25-50 MG PO Q6H PRN for ALLERGY SYMPTOMS, (Reported) Last Action: Reviewed Famotidine 20 Mg Tablet, 20 MG PO BID PRN for INDIGESTION, (Reported) Last Action: Reviewed Ondansetron 4 Mg Tab.rapdis, 4 MG PO Q4H PRN for NAUSEA/VOMITING-1ST LINE, (Reported) Last Action: Reviewed Pantoprazole Sodium 40 Mg Tablet.dr, 40 MG PO HS, (Reported) LAST FILLED 08-20-2020 #30/30 DAY SUPPLY Last Action: Reviewed Propranolol HCl 80 Mg Tablet, 80 MG PO TID, (Reported) LAST FILLED 09-02-2020 #90/30 DAY SUPPLY Last Action: Reviewed Sucralfate 1 Gm Tablet, 1 GM PO QID, (Reported) LAST FILLED 08-29-2020 #120/30 DAY SUPPLY Last Action: Reviewed Sumatriptan Succinate 100 Mg Tablet, 100 MG PO DAILY PRN for MIGRAINE, (Reported) Last Action: Reviewed Tizanidine HCl 4 Mg Tablet, 4 MG PO TID PRN for MUSCLE SPASMS, (Reported) Last Action: Reviewed Past Xdiapin-Ojcfgk-Ecznva Hx Patient Social History Drug of Choice: MARIJUANA Smoking Status: Never a Smoker 2nd Hand Smoke Exposure: No Recent Hopitalizations: No Alcohol Use?: No Have you traveled recently?: No Immunizations Up To Date Tetanus Booster (TDap): Unknown PED Vaccines UTD: No Date of Pneumonia Vaccine: Mar 03, 2014 Date of Influenza Vaccine: Mar 03, 2015 Seasonal Allergies Seasonal Allergies: No Surgeries History of Surgeries: Yes (EGD/COLONOSCOPY; LAPAROSCOPY) Surgeries: Abdominal (diagnostic lap), Bladder Surgery (sling // has been removed), Gallbladder, 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, Oophorectomy, Tubal Ligation Respiratory History of Respiratory Disorde: Yes Respiratory Disorders: Asthma Cardiovascular History of Cardiac Disorders: Yes (BRADYCARDIA 2012) Cardiac Disorders: Hypertension, Syncope Neurological History of Neurological Disord: Yes (Tremors) Neurological Disorders: Seizure Disorder ("stress seizures") 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 System Hx 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 Disorders: Yes (HYST 2005--NO PHYSICIAN DOCUMENTATION OF ANY KIND OF CANCER) Sexually Transmitted Disease: Yes (HPV) HIV/AIDS: No 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 Disorders: Denies 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 Genitourinary History of Genitourinary Disor: Yes Genitourinary Disorders: Bladder Infection Gastrointestinal History of Gastrointestinal Di: Yes (CHRONIC N/V/ABD PAIN; CANNIBUS HYPEREMESIS, history intussusception) Gastrointestinal Disorders: Gastroesophageal Reflux, Pancreatitis, Irritable Bowel Musculoskeletal History of Musculoskeletal Dis: Yes Musculoskeletal Disorders: Chronic Back Pain Endocrine History of Endocrine Disorders: No HEENT History of HEENT Disorders: Yes (POOR DENTITION) Loss of Vision: Denies Hearing Impairment: Denies Cancer History of Cancer: No (NO PHYSICAN DOCUMENTAION/VERIFICATION OF ANY KIND OF CANCER) Cancer: Cervical Psychosocial History of Psychiatric Problem: Yes (THC USE) Behavioral Health Disorders: Anxiety, Depression Integumentary History of Skin or Integumenta: No Blood Transfusions History of Blood Disorders: No Adverse Reaction to a Blood Tr: No Family Medical History Significant Family History: Heart Disease, Hypertension Family Medial History: Diabetes mellitus 19 FATHER FHx: brain tumor 19 MOTHER HPV infection G8 SISTER No Family History of: AIDS Abdominal aortic aneurysm [place]'s disease Alcoholism Alzheimer's disease Aphasia Arthritis Asthma Cancer of mouth Cardiovascular disease Cataracts Colon cancer Completed stroke Congenital disease Congenital heart disease Coronary thrombosis Cystic fibrosis Deafness or hearing loss Dementia Drug abuse Dysphasia Fibrocystic disease of breast Gastroenteritis Glaucoma Headache disorder Hypercholesterolemia Hypertension Infertility Kidney disease Myocardial infarction Neoplasm Not obtainable due to adoption Osteoporosis Parkinson's disease Prostate cancer Psychosocial problem Respiratory disorder Seizure disorder Severe allergy Thyroid disease Tuberculosis Visual disorder Review of Systems-General Constitutional: No diaphoresis, No fever EENTM: No hearing loss, No ear pain, No blurred vision, No eye pain, No epistaxis, No nose congestion Respiratory: No cough, No dyspnea on exertion Cardiovascular: No chest pain, No palpitations Gastrointestinal: abdominal pain (with retching); No constipation, No diarrhea; nausea, vomiting Genitourinary: No dysuria, No frequency Musculoskeletal: No joint pain, No muscle pain Skin: No change in color, No lesions, No lumps Psychiatric/Neurological: Denies Anxiety, Denies Depressed; Headache Physical Exam-General Problems Physical Exam Vital Signs Vital Signs - First Documented 12/13/20 12/13/20 12/13/20 09:47 16:59 17:11 Temp 36.6 Pulse 92 Resp 18 B/P (MAP) 194/111 Pulse Ox 98 O2 Delivery Room Air Capillary Refill : Less Than 3 Seconds General Appearance: no apparent distress, obese Eyes: Bilateral Eye PERRL, Bilateral Eye EOMI HEENT: No scleral icterus (R), No scleral icterus (L); other (poor dentation) Neck: non-tender, supple, normal inspection Respiratory: chest non-tender, lungs clear, normal breath sounds, no respiratory distress, no accessory muscle use Cardiovascular: regular rate, rhythm, no murmur Peripheral Pulses: 2+ Radial Pulses (R), 2+ Radial Pulses (L) Gastrointestinal: non tender, soft, no organomegaly, no pulsatile mass Back: no CVA tenderness, no vertebral tenderness Extremities: no pedal edema, normal capillary refill Neurologic/Psychiatric: sluice tender II-XII nml as tested, no motor/sensory deficits Skin: normal color, warm/dry Lymphatic: no adenopathy (neck, axilla, groin) Data Review Labs Laboratory Tests 12/13/20 15:16: Urine Color YELLOW, Urine Clarity CLEAR, Urine pH 7.5, Urine Specific Pol[place] <=1.005, Urine Protein NEGATIVE, Urine Glucose (UA) NEGATIVE, Urine Ketones 1+H, Urine Nitrite NEGATIVE, Urine Bilirubin NEGATIVE, Urine Urobilinogen 1.0, Urine Leukocyte Esterase NEGATIVE, Urine RBC (Auto) NEGATIVE, Urine RBC NONE, Urine WBC 0-2, Urine Squamous Epithelial Cells 5-10, Urine Crystals NONE, Urine Bacteria TRACE, Urine Casts NONE, Urine Mucus NEGATIVE, Urine Culture Indicated NO, Urine Opiates Screen NEGATIVE, Urine Oxycodone Screen NEGATIVE, Urine Methadone Screen NEGATIVE, Urine Propoxyphene Screen NEGATIVE, Urine Barbiturates Screen NEGATIVE, Ur Tricyclic Antidepressants Screen NEGATIVE, Urine Phencyclidine Screen NEGATIVE, Urine Amphetamines Screen NEGATIVE, Urine Methamphetamines Screen NEGATIVE, Urine Benzodiazepines Screen NEGATIVE, Urine Cocaine Screen NEGATIVE, Urine Cannabinoids Screen NEGATIVE 12/14/20 06:26: White Blood Count 7.0, Red Blood Count 3.85, Hemoglobin 10.3L, Hematocrit 34L, Mean Corpuscular Volume 88, Mean Corpuscular Hemoglobin 27, Mean Corpuscular Hemoglobin Concent 31L, Red Cell Distribution Width 16.4H, Platelet Count 310, Mean Platelet Volume 10.4, Immature Granulocyte % (Auto) 0, Neutrophils (%) (Auto) 58, Lymphocytes (%) (Auto) 31, Monocytes (%) (Auto) 9, Eosinophils (%) (Auto) 0, Basophils (%) (Auto) 0, Neutrophils # (Auto) 4.1, Lymphocytes # (Auto) 2.2, Monocytes # (Auto) 0.7, Eosinophils # (Auto) 0.0, Basophils # (Auto) 0.0, Immature Granulocyte # (Auto) 0.0, Sodium Level 145, Potassium Level 3.1L, Chloride Level 103, Carbon Dioxide Level 27, Anion Gap 15H, Blood Urea Nitrogen 5L, Creatinine 0.79, Estimat Glomerular Filtration Rate > 60, BUN/Creatinine Ratio 6, Glucose Level 106H, Calcium Level 8.7 Radiology Date of Exam:12/13/20 CT ABDOMEN/PELVIS W EXAMINATION: CT abdomen and pelvis with intravenous contrast. TECHNIQUE: Multiple contiguous axial images were obtained through the abdomen and pelvis after the uneventful administration of intravenous contrast. All CT scans use one or more of the following dose optimizing techniques: automated exposure control, MA and/or KvP adjustment based on patient size and exam type or iterative reconstruction. HISTORY: Abdominal pain, nausea and vomiting. COMPARISON: 10/15/2020 FINDINGS: Limited views of the lower thorax are unremarkable. The liver is normal without focal lesion. There is no biliary ductal dilation. Gallbladder is surgically absent. Pancreas is normal. Spleen is normal. Adrenal glands are normal. The kidneys are normal. There is no hydronephrosis. Urinary bladder is normal. Visualized bowel is normal in caliber without obstruction or inflammation. No free fluid or air. No abdominal or pelvic lymphadenopathy. Aorta is normal in caliber without aneurysm. There are no suspicious osseous lesions. IMPRESSION: 1. No acute abnormality in the abdomen or pelvis. Dictated by: Dictated on workstation # [id number] Dict: 12/13/20 1320 Trans: 12/13/20 1639 [facility] [id number] Interpreted by: ANALY CONNORS MD Electronically signed by: ANALY CONNORS MD 12/13/20 1639 Assessment/Plan Assessment/Plan Assessment/Plan nausea with vomiting GERD anemia hypokalemia history of bloody bowel movement Anti-emetics GI prophylaxis replace K+ continue home medications There is not a surgical indication at this time, will schedule for out patient colonoscopy/possible EGD due to chronic GERD and self-reported blood with bowel movement, continue to advance diet as tolerated LOLY BHATTI DO 12/14/20 1400: History of Present Illness History of Present Illness Time Seen by Provider: 11:37 History of Present Illness Pt states she still feels as bad as yesterday, has not thrown up as much today. States nothing is really helping, but she is taking clears. Allergies and Home Medications Allergies Coded Allergies: morphine (Verified Allergy, Unknown, CAUSES "REBOUND HEADACHES", 12/13/20) PT HAS RECEIVED LORTAB & OXYCODONE IN THE PAST baclofen (Verified Adverse Reaction, Severe, 12/13/20) PATIENT UNAWARE OF REACTION BUT WAS HOSPITALIZED AFTER TAKING MEDICATION AND WAS TOLD IT WAS A REACTION DUE TO THE MEDICATION SHE TOOK. meloxicam (Verified Adverse Reaction, Severe, 12/13/20) PATIENT UNAWARE OF REACTION BUT WAS HOSPITALIZED AFTER TAKING MEDICATION AND WAS TOLD IT WAS A REACTION DUE TO THE MEDICATION SHE TOOK. NSAIDS (Non-Steroidal Anti-Inflamma (Verified Adverse Reaction, Mild, have IBS and avoid NSAIDS, 12/13/20) Home Medications Amlodipine Besylate 10 Mg Tablet, 10 MG PO DAILY, (Reported) LAST FILLED 09-02-2020 #30/ DAY SUPPLY Last Action: Reviewed Calcium Carbonate 400 Mg Tab.chew, 400-800 MG PO PRN PRN for HEARTBURN, (Reported) Last Action: Reviewed Dicyclomine HCl 20 Mg Tablet, 20 MG PO QID, (Reported) Last Action: Reviewed Diphenhydramine HCl 25 Mg Capsule, 25-50 MG PO Q6H PRN for ALLERGY SYMPTOMS, (Reported) Last Action: Reviewed Famotidine 20 Mg Tablet, 20 MG PO BID PRN for INDIGESTION, (Reported) Last Action: Reviewed Ondansetron 4 Mg Tab.rapdis, 4 MG PO Q4H PRN for NAUSEA/VOMITING-1ST LINE, (Re ported) Last Action: Reviewed Pantoprazole Sodium 40 Mg Tablet.dr, 40 MG PO HS, (Reported) LAST FILLED 08-20-2020 #30/30 DAY SUPPLY Last Action: Reviewed Propranolol HCl 80 Mg Tablet, 80 MG PO TID, (Reported) LAST FILLED 09-02-2020 #90/30 DAY SUPPLY Last Action: Reviewed Sucralfate 1 Gm Tablet, 1 GM PO QID, (Reported) LAST FILLED 08-29-2020 #120/30 DAY SUPPLY Last Action: Reviewed Sumatriptan Succinate 100 Mg Tablet, 100 MG PO DAILY PRN for MIGRAINE, (Reported) Last Action: Reviewed Tizanidine HCl 4 Mg Tablet, 4 MG PO TID PRN for MUSCLE SPASMS, (Reported) Last Action: Reviewed Patient Home Medication List Home Medication List Reviewed: Yes Past Jkptduw-Cmface-Ykjffe Hx Patient Social History Drug of Choice: last smoked 3 months ago Smoking Status: Never a Smoker Surgeries History of Surgeries: Yes Surgeries: Abdominal (diagnostic lap), Bladder Surgery (sling // has been removed), Gallbladder, 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, Oophorectomy, Tubal Ligation Respiratory History of Respiratory Disorde: No Cardiovascular History of Cardiac Disorders: No Neurological History of Neurological Disord: Yes (Tremors) Neurological Disorders: Seizure Disorder ("stress seizures") Genitourinary History of Genitourinary Disor: No Gastrointestinal History of Gastrointestinal Di: Yes Gastrointestinal Disorders: Gastroesophageal Reflux, Diverticulosis, Esophagitis, Gall Bladder Disease Musculoskeletal History of Musculoskeletal Dis: No Endocrine History of Endocrine Disorders: No HEENT Loss of Vision: Denies Hearing Impairment: Denies Cancer History of Cancer: Yes Cancer: Uterine Family Medical History Significant Family History: Heart Disease, Hypertension Family Medial History: Diabetes mellitus 19 FATHER FHx: brain tumor 19 MOTHER HPV infection G8 SISTER No Family History of: AIDS Abdominal aortic aneurysm Madi's disease Alcoholism Alzheimer's disease Aphasia Arthritis Asthma Cancer of mouth Cardiovascular disease Cataracts Colon cancer Completed stroke Congenital disease Congenital heart disease Coronary thrombosis Cystic fibrosis Deafness or hearing loss Dementia Drug abuse Dysphasia Fibrocystic disease of breast Gastroenteritis Glaucoma Headache disorder Hypercholesterolemia Hypertension Infertility Kidney disease Myocardial infarction Neoplasm Not obtainable due to adoption Osteoporosis Parkinson's disease Prostate cancer Psychosocial problem Respiratory disorder Seizure disorder Severe allergy Thyroid disease Tuberculosis Visual disorder Review of Systems-General Constitutional: No diaphoresis, No fever EENTM: No blurred vision, No eye pain, No epistaxis, No nose congestion Respiratory: No cough, No dyspnea on exertion Cardiovascular: No chest pain, No palpitations Gastrointestinal: abdominal pain (with retching); No constipation, No diarrhea; nausea, vomiting Genitourinary: No dysuria, No frequency Musculoskeletal: No joint pain, No muscle pain Skin: No change in color, No lesions, No lumps Psychiatric/Neurological: Denies Anxiety, Denies Depressed; Headache Physical Exam-General Problems Physical Exam General Appearance: no apparent distress, obese Eyes: Bilateral Eye PERRL, Bilateral Eye EOMI HEENT: No scleral icterus (R), No scleral icterus (L); other (poor dentation) Neck: non-tender, supple, normal inspection Respiratory: chest non-tender, lungs clear, normal breath sounds, no respiratory distress, no accessory muscle use Cardiovascular: regular rate, rhythm, no murmur Gastrointestinal: non tender, soft, no organomegaly, no pulsatile mass Back: no CVA tenderness, no vertebral tenderness Extremities: no pedal edema Neurologic/Psychiatric: sluice tender II-XII nml as tested, no motor/sensory deficits Skin: normal color, warm/dry Lymphatic: no adenopathy (neck, axilla, groin) Assessment/Plan Assessment/Plan Assessment/Plan Intractable N/V GERD Anemia Rectal bleed Pt is getting anti-emetics, IV fluids and electrolyte replacement. I looked at her CT myself and the colon looks a little bit thickened which could be colitis or could just look thickend because the colon is not distended enough. I would continue to treat symptomatically in the hospital, no surgical indication at this time. She can get repeat EGD and colonoscopy as an outpt. Diet as tolerated. Supervisory-Addendum Brief Verification & Attestation Participated in pt care: history, MDM, physical Personally performed: exam, history, MDM, supervision of care Care discussed with: Medical Student Procedures: n/a Verification and Attestation of Medical Student E/M Service A medical student performed and documented this service. I then reviewed and verified all information documented by the medical student and made modifications to such information, when appropriate. I personally performed a physical exam, medical decision making and then discussed any differences between the notes and made revisions as necessary to create one note. Loly Bhatti 12/14/20 , 14:00 ADRIAN KINSEY MED STUDENT Dec 14, 2020 12:00 LOLY BHATTI DO Dec 14, 2020 14:00
[2020-12-14] MEDS ORDERED: CALC10009 PO (13:35)
[2020-12-14] MEDS ORDERED: DICY20TA10 PO (13:35)
[2020-12-14] MEDS ORDERED: FAMO20TA5 PO (13:35)
[2020-12-14] MEDS: HYDROcodone/APAP 5 MG/325 MG (LORTAB) TAB PO PRN (14:44)
--- NOTE | 2020-12-14 15:09 | Progress Note - Hospitalist ---
Subjective HPI/CC On Admission Date Seen by Provider: Dec 14, 2020 Time Seen by Provider: 10:45 Subjective/Events-last exam Maggy Martel is a 45-year-old female with recurrent bouts of cyclical vomiting syndrome who presented with intractable nausea and vomiting. Her symptoms have been going on for the past couple days. She denies any blood in her vomit. She has not had any diarrhea. She has had abdominal pain which is currently an 8 out of 10. She says that it radiates around to her back. She denies any fevers or chills. She denies any chest pain or shortness of breath. She says she tried all of her "normal tricks" like taking a hot shower and taking her medication. She says that those things did not work. Objective Exam Vital Signs Vital Signs Date Time Temp Pulse Resp B/P (MAP) Pulse Ox O2 Delivery O2 Flow Rate FiO2 12/14/20 11:43 37.2 85 18 153/83 (106) 93 Room Air Capillary Refill : Less Than 3 Seconds General Appearance: No Apparent Distress, Obese Respiratory: Lungs Clear, Normal Breath Sounds, No Respiratory Distress Cardiovascular: Regular Rate, Rhythm, No Edema, No Murmur Gastrointestinal: Soft, Abnormal Bowel Sounds (Hypoactive), Tenderness (Diffusely) Extremity: Normal Inspection, Non Tender, No Pedal Edema Neurologic/Psychiatric: Alert, Oriented x3, No Motor/Sensory Deficits, Normal Mood/Affect Skin: Normal Color, Warm/Dry Results/Procedures Lab Laboratory Tests 12/14/20 06:26 Patient resulted labs reviewed. Imaging: Reviewed Imaging Report Assessment/Plan Assessment and Plan Assess & Plan/Chief Complaint Intractable nausea and vomiting Cyclical vomiting syndrome CT Abdomen negative Surgery consulted, appreciate assistance Antiemetics Begin Dronabinol Consider adding prophylactic medication Pain regimen Marijuana abuse Reportedly in remission x4 months HTN Continue Amlodipine Started on Lisinopril DVT prophylaxis: Ambulation Diagnosis/Problems Diagnosis/Problems (1) Intractable nausea and vomiting Status: Acute (2) Cyclical vomiting syndrome Status: Acute SEFERINO MELO MD Dec 14, 2020 15:09
[2020-12-14] MEDS ORDERED: DRONABINOL 2.5 MG (MARINOL) CAP PO SCH (16:00)
[2020-12-14] MEDS: ENOXAPARIN 40 MG/0.4 ML (LOVENOX) SYR SC SCH (16:42)
[2020-12-14] MEDS: MELATONIN 3 MG TABLET PO PRN (20:13)
[2020-12-15] MEDS: LACTATED RINGERS 1,000 ML IV SCH ×2 (01:03→08:21)
[2020-12-15] MEDS: fentaNYL INJ 100 MCG/2 ML AMP IV PRN (01:11)
[2020-12-15] MEDS: ACETAMINOPHEN 325 MG TABLET PO PRN (03:24)
[2020-12-15 03:42] VITALS: BP 165/113
[2020-12-15] MEDS: HYDROmorphone 2 MG/ML VIAL (DILAUDID) IV PRN (04:35)
[2020-12-15] MEDS: SUCRALFATE 1 GM (CARAFATE) TAB PO SCH (06:31)
[2020-12-15] MEDS: HYDROcodone/APAP 5 MG/325 MG (LORTAB) TAB PO PRN (06:34)
[2020-12-15 07:34] VITALS: BP 185/106
--- NOTE | 2020-12-15 07:36 | Progress Note - Surgery ---
ADRIAN KINSEY MED STUDENT 12/15/20 0736: Subjective Date Seen by a Provider: Dec 15, 2020 Time Seen by a Provider: 07:20 Subjective/Events-last exam Patient is 45 year old female being followed for N/V. This morning she is complaining of constant abdominal pain, which was not present when I saw her yesterday. She states she has not eaten or drank anything since the "belly" started hurting, but does not know if food makes it worse or better because she has "not tried" to eat. She has not had a BM, she is urinating without difficulty. She says she is nauseous right now, but has not vomited since I saw her last. Additionally patient is complaining of frontal headache, point in a band like fashion across her forehead. Review of Systems General: No Chills, No Night Sweats HEENT: Head Aches; No Visual Changes, No Ear Pain Pulmonary: No Dyspnea, No Cough Cardiovascular: No: Chest Pain, Palpitations Gastrointestinal: Nausea; No: Vomiting Genitourinary: No Dysuria, No Frequency Musculoskeletal: No: other (myalgias or arthragias) Neurological: No: Weakness, Numbness Objective Exam Vital Signs Date Time Temp Pulse Resp B/P (MAP) Pulse Ox O2 Delivery O2 Flow Rate FiO2 12/15/20 03:42 36.9 98 18 165/113 (130) 93 Room Air 12/14/20 23:59 36.5 92 18 179/91 (120) 95 Room Air 12/14/20 20:20 Room Air 12/14/20 20:10 36.8 108 20 161/93 (115) 95 Room Air 12/14/20 16:00 36.6 93 18 167/100 (122) 94 Room Air 12/14/20 11:43 37.2 85 18 153/83 (106) 93 Room Air 12/14/20 08:00 Room Air 12/14/20 07:42 36.8 88 18 186/119 (141) 94 Room Air I & O 12/15/20 07:00 Intake Total 3025 ml Output Total 1350 ml Balance 1675 ml Capillary Refill : Less Than 3 Seconds General Appearance: No Apparent Distress, Obese Respiratory: Lungs Clear, Normal Breath Sounds, No Respiratory Distress Cardiovascular: Regular Rate, Rhythm, No Edema, No Murmur Peripheral Pulses: 2+ Radial Pulses (R), 2+ Radial Pulses (L) Gastrointestinal: non tender, soft, no organomegaly, no pulsatile mass Extremity: Normal Inspection, Non Tender, No Pedal Edema Neurologic/Psychiatric: Alert, Oriented x3, No Motor/Sensory Deficits, Normal Mood/Affect Skin: Normal Color, Warm/Dry Assessment/Plan Assessment/Plan Assessment/Plan Intractable N/V GERD Anemia Rectal bleed headache I would advise against narcotics for pain control, on exam abdominal was soft, nontender, and with history of marijuana use I feel nonnarcotic pain control would be best. She has not been eating, talked with patient about continuing to attempt to eat as tolerated. There are no surgical indications at this time. Will continue to follow. MOHAN VILLA DO 12/15/20 1106: Subjective Time Seen by a Provider: 10:50 Subjective/Events-last exam Pt seen and examined, when I walked in she was not in any distress and appeared comfortable. States she did have an episode of emesis and that medical doctor is sending her home. Review of Systems General: No Chills, No Night Sweats HEENT: Head Aches Pulmonary: No Dyspnea, No Cough Cardiovascular: No: Chest Pain, Palpitations Gastrointestinal: Nausea, Vomiting, Abdominal Pain Genitourinary: No Dysuria, No Frequency Objective Exam General Appearance: No Apparent Distress, Obese Respiratory: Lungs Clear, Normal Breath Sounds, No Respiratory Distress Cardiovascular: Regular Rate, Rhythm, No Murmur Gastrointestinal: non tender, soft, no organomegaly, no pulsatile mass Extremity: Non Tender, No Pedal Edema Neurologic/Psychiatric: Alert, Oriented x3 Assessment/Plan Assessment/Plan Assessment/Plan Intractable N/V GERD Anemia Rectal bleed headache Pt's main concern is "My throat is all torn up" and she is worried it could be causing her problems. I told pt that she can see me in the office next week and we will schedule an EGD at that time. No surgical indications at this time. Supervisory-Addendum Brief Verification & Attestation Participated in pt care: history, MDM, physical Personally performed: exam, history, MDM, supervision of care Care discussed with: Medical Student Procedures: n/a Verification and Attestation of Medical Student E/M Service A medical student performed and documented this service. I then reviewed and verified all information documented by the medical student and made modifications to such information, when appropriate. I personally performed a physical exam, medical decision making and then discussed any differences between the notes and made revisions as necessary to create one note. Mohan Villa , 12/15/20 , 11:06 ADRIAN KINSEY MED STUDENT Dec 15, 2020 07:36 MOHAN VILLA DO Dec 15, 2020 11:06
[2020-12-15] MEDS: PANTOPRAZOLE 40 MG (PROTONIX) TAB PO SCH (08:20)
[2020-12-15] MEDS: amLODIPine 10 MG (NORVASC) TAB PO SCH (08:21)
[2020-12-15] MEDS: lisINopril 40 MG (PRINIVIL) TABLET PO SCH (08:21)
[2020-12-15] MEDS ORDERED: ONDA4TAB11 PO (09:10)
[2020-12-15] MEDS ORDERED: LISI40TA9 PO (09:10)
[2020-12-15 09:28] LABS: BUN/CREATININE RATIO 4; CALCIUM 8.9 MG/DL (8.5-10.1); CARBON DIOXIDE 30 MMOL/L (21-32); CHLORIDE 99 MMOL/L (98-107); CREATININE SERUM 0.73 MG/DL (0.60-1.30); GFR ESTIMATED > 60; GLUCOSE 100 MG/DL (70-105); MAGNESIUM 1.6 MG/DL (1.6-2.4); SODIUM 140 MMOL/L (135-145)
--- NOTE | 2020-12-15 17:15 | Discharge Summary ---
Discharge Summary Hospital Course Problems/Dx: (1) Intractable nausea and vomiting Status: Acute (2) Cyclical vomiting syndrome Status: Acute Hospital Course Date of Admission: Dec 13, 2020 at 16:00 Admission Diagnosis : Intractable nausea and vomiting Family Physician/Provider: Nicolás Veliz Date of Discharge: 12/15/20 Discharge Diagnosis: Cyclic vomiting syndrome Hospital Course: aMggy Martel is a 45 year old female who was admitted with intractable nausea and vomiting. She was started on antiemetics. She also had abdominal pain. Her CT Abdomen showed no acute abnormalities. Her nausea and pain improved and she was discharged home with antiemetics. She should follow up with her PCP. Consider starting a preventative medication for cyclic vomiting syndrome. She was discharged home in stable condition. Labs and Pending Lab Test: Laboratory Tests 12/15/20 08:30: Sodium Level 140, Potassium Level 3.0L, Chloride Level 99, Carbon Dioxide Level 30, Anion Gap 11, Blood Urea Nitrogen 3L, Creatinine 0.73, Estimat Glomerular Filtration Rate > 60, BUN/Creatinine Ratio 4, Glucose Level 100, Calcium Level 8.9, Magnesium Level 1.6 Home Meds Active Ondansetron Odt (Ondansetron) 4 Mg Tab.rapdis 4 Mg PO Q6H PRN 30 Days Lisinopril 40 Mg Tablet 40 Mg PO DAILY 30 Days Reported Tums Ultra (Calcium Carbonate) 400 Mg Tab.chew 400-800 Mg PO PRN PRN Famotidine 20 Mg Tablet 20 Mg PO BID PRN Dicyclomine HCl 20 Mg Tablet 20 Mg PO QID Sucralfate 1 Gm Tablet 1 Gm PO QID LAST FILLED 08-29-2020 #120/30 DAY SUPPLY Pantoprazole Sodium 40 Mg Tablet.dr 40 Mg PO HS LAST FILLED 08-20-2020 #30/30 DAY SUPPLY Benadryl (Diphenhydramine HCl) 25 Mg Capsule 25-50 Mg PO Q6H PRN Ondansetron Odt (Ondansetron) 4 Mg Tab.rapdis 4 Mg PO Q4H PRN Sumatriptan Succinate 100 Mg Tablet 100 Mg PO DAILY PRN MDD 200 Amlodipine Besylate 10 Mg Tablet 10 Mg PO DAILY LAST FILLED 09-02-2020 #30/30 DAY SUPPLY Tizanidine HCl 4 Mg Tablet 4 Mg PO TID PRN Propranolol HCl 80 Mg Tablet 80 Mg PO TID LAST FILLED 09-02-2020 #90/30 DAY SUPPLY Assessment/Pt Instructions Take medications as prescribed. Follow up with your PCP. Return with worsening symptoms. Discharge Planning: <30 minutes discharge planning Discharge Instructions Discharge Diet: No Restrictions Activity as Tolerated: Yes Discharge Physical Examination Vital Signs Vital Signs Date Time Temp Pulse Resp B/P (MAP) Pulse Ox O2 Delivery O2 Flow Rate FiO2 12/15/20 08:00 93 Room Air 12/15/20 07:34 36.8 93 18 185/106 (132) General Appearance: No Apparent Distress, Obese Respiratory: Lungs Clear, Normal Breath Sounds, No Respiratory Distress Cardiovascular: Regular Rate, Rhythm, No Edema, No Murmur Gastrointestinal: Normal Bowel Sounds, Non Tender, Soft Extremity: Normal Inspection, Non Tender, No Pedal Edema Skin: Normal Color, Warm/Dry Neurologic/Psychiatric: Alert, Oriented x3, No Motor/Sensory Deficits, Normal Mood/Affect Allergies: Coded Allergies: morphine (Verified Allergy, Unknown, CAUSES "REBOUND HEADACHES", 12/13/20) PT HAS RECEIVED LORTAB & OXYCODONE IN THE PAST baclofen (Verified Adverse Reaction, Severe, 12/13/20) PATIENT UNAWARE OF REACTION BUT WAS HOSPITALIZED AFTER TAKING MEDICATION AND WAS TOLD IT WAS A REACTION DUE TO THE MEDICATION SHE TOOK. meloxicam (Verified Adverse Reaction, Severe, 12/13/20) PATIENT UNAWARE OF REACTION BUT WAS HOSPITALIZED AFTER TAKING MEDICATION AND WAS TOLD IT WAS A REACTION DUE TO THE MEDICATION SHE TOOK. NSAIDS (Non-Steroidal Anti-Inflamma (Verified Adverse Reaction, Mild, have IBS and avoid NSAIDS, 12/13/20) Copy Copies To 1: [facility] [place] Summary Date of Admission Dec 13, 2020 at 16:00 Date of Discharge Dec 15, 2020 at 11:32 Discharge Date: Dec 15, 2020 Discharge Time: 11:32 Admission Diagnosis Intractable nausea and vomiting Discharge Diagnosis Intractable nausea and vomiting Cyclical vomiting syndrome (1) Intractable nausea and vomiting Status: Acute (2) Cyclical vomiting syndrome Status: Acute SEFERINO MELO MD Dec 15, 2020 17:15
== END 2020-12-15 11:30 | disposition home or self-care (01) ==
LOC: EDUNIT# 09:32 → ER 09:34 → UNDOADMOB 16:00 → 4TH 16:00 → UNDODISOB 12-15 11:32
PROVIDERS: ADMIT Internal Medicine; ATTEND Internal Medicine
DX: R11.15 Cyclical vomiting syndrome unrelated to migraine (principal); K21.9 Gastro-esophageal reflux disease without esophagitis; D64.9 Anemia, unspecified; K62.5 Hemorrhage of anus and rectum; K58.9 Irritable bowel syndrome, unspecified; M54.9 Dorsalgia, unspecified; G89.29 Other chronic pain; J45.909 Unspecified asthma, uncomplicated; G40.909 Epilepsy, unspecified, not intractable, without status epilepticus; I10 Essential (primary) hypertension; F32.9 Major depressive disorder, single episode, unspecified; F41.9 Anxiety disorder, unspecified; F12.10 Cannabis abuse, uncomplicated; Z79.899 Other long term (current) drug therapy; Z79.891 Long term (current) use of opiate analgesic; Z85.038 Personal history of other malignant neoplasm of large intestine; Z85.41 Personal history of malignant neoplasm of cervix uteri; Z90.710 Acquired absence of both cervix and uterus; Z98.51 Tubal ligation status; Z87.19 Personal history of other diseases of the digestive system; Z83.3 Family history of diabetes mellitus; Z80.8 Family history of malignant neoplasm of other organs or systems
CPT/HCPCS: 74177; 80048 ×2; 80053; 80306; 81000; 83690; 83735; 85025 ×2; 86141; 99284; G0378; 36415

== ENCOUNTER 2020-12-30 12:08 | Emergency (ER) | payer SELFPAY ==
[~2020-12-30] VITALS: Ht 167.7 cm; Wt 92.9 kg
[~2020-12-30 12:08] MED LIST changes: +CALC10009 PO; +LISI40TA9 PO
--- NOTE | 2020-12-30 12:24 | ED Abdominal Pain ---
General Stated Complaint: VOMITING Source of Information: Patient Exam Limitations: No Limitations (LYN LUND APRN) History of Present Illness Date Seen by Provider: Dec 30, 2020 Time Seen by Provider: 12:20 Initial Comments This is a 45-year-old female who presents to the ER with complaints of intractable nausea and vomiting. States that her symptoms began yesterday. She took an ODT Zofran with no relief. States that she has vomited TNC. Reports sharp constant pain in her abdomen, this is the same pain she always has during these episodes. She is following with Dr. Bhatti on January 06 for persistent cyclic vomiting. Denies fever, chills, cough, shortness of breath, dysuria, hematuria. (LYN LUND APRN) Allergies and Home Medications Allergies Coded Allergies: morphine (Verified Allergy, Unknown, CAUSES "REBOUND HEADACHES", 12/13/20) PT HAS RECEIVED LORTAB & OXYCODONE IN THE PAST baclofen (Verified Adverse Reaction, Severe, 12/13/20) PATIENT UNAWARE OF REACTION BUT WAS HOSPITALIZED AFTER TAKING MEDICATION AND WAS TOLD IT WAS A REACTION DUE TO THE MEDICATION SHE TOOK. meloxicam (Verified Adverse Reaction, Severe, 12/13/20) PATIENT UNAWARE OF REACTION BUT WAS HOSPITALIZED AFTER TAKING MEDICATION AND WAS TOLD IT WAS A REACTION DUE TO THE MEDICATION SHE TOOK. NSAIDS (Non-Steroidal Anti-Inflamma (Verified Adverse Reaction, Mild, have IBS and avoid NSAIDS, 12/13/20) Home Medications Amlodipine Besylate 10 Mg Tablet, 10 MG PO DAILY, (Reported) LAST FILLED 09-02-2020 #30/30 DAY SUPPLY Calcium Carbonate 400 Mg Tab.chew, 400-800 MG PO PRN PRN for HEARTBURN, (Reported) Dicyclomine HCl 20 Mg Tablet, 20 MG PO QID, (Reported) Dicyclomine HCl 20 Mg Tablet, 20 MG PO Q6H Prescribed by: ARIELLA WARNER on 12/31/20 09 Diphenhydramine HCl 25 Mg Capsule, 25-50 MG PO Q6H PRN for ALLERGY SYMPTOMS, (Reported) Famotidine 20 Mg Tablet, 20 MG PO BID PRN for INDIGESTION, (Reported) Lisinopril 40 Mg Tablet, 40 MG PO DAILY Prescribed by: SEFERINO MELO on 12/15/20 09 Ondansetron 4 Mg Tab.rapdis, 4 MG PO Q4H PRN for NAUSEA/VOMITING-1ST LINE, (Reported) Ondansetron 4 Mg Tab.rapdis, 4 MG PO Q6H PRN for NAUSEA/VOMITING Prescribed by: SEFERINO MELO on 12/15/20 0910 Pantoprazole Sodium 40 Mg Tablet.dr, 40 MG PO HS, (Reported) LAST FILLED 08-20-2020 #30/30 DAY SUPPLY Propranolol HCl 80 Mg Tablet, 80 MG PO TID, (Reported) LAST FILLED 09-02-2020 #90/30 DAY SUPPLY Sucralfate 1 Gm Tablet, 1 GM PO QID, (Reported) LAST FILLED 08-29-2020 #120/30 DAY SUPPLY Sumatriptan Succinate 100 Mg Tablet, 100 MG PO DAILY PRN for MIGRAINE, (Reported) Tizanidine HCl 4 Mg Tablet, 4 MG PO TID PRN for MUSCLE SPASMS, (Reported) Patient Home Medication List Home Medication List Reviewed: Yes (LYN LUND APRN) Review of Systems Review of Systems Constitutional: no symptoms reported EENTM: No Symptoms Reported Respiratory: No Symptoms Reported Cardiovascular: No Symptoms Reported Gastrointestinal: See HPI Genitourinary: No Symptoms Reported Musculoskeletal: no symptoms reported Skin: no symptoms reported Psychiatric/Neurological: No Symptoms Reported Endocrine: No Symptoms Reported Hematologic/Lymphatic: No Symptoms Reported (LYN LUND APRN) Past Ahazxmo-Gmyvgr-Gbxkup Hx Immunizations Up To Date Tetanus Booster (TDap): Unknown PED Vaccines UTD: No (LYN LUND APRN) Seasonal Allergies Seasonal Allergies: No (LYN LUND APRN) Past Medical History Surgery/Hospitalization HX: SEE HX Surgeries: Yes Abdominal, Bladder Surgery, Gallbladder, 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, Oophorectomy, Tubal Ligation Respiratory: No Asthma Currently Using CPAP: No Currently Using BIPAP: No Cardiac: No Hypertension, Syncope Neurological: Yes (Tremors) Seizure Disorder 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 Disorders: Yes (HYST 2005--NO PHYSICIAN DOCUMENTATION OF ANY KIND OF CANCER) 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 Disorders: Denies CLINICAL SCIENCE LIAISON History: 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 Sexually Transmitted Disease: Yes (HPV) HIV/AIDS: No Genitourinary: No Bladder Infection Gastrointestinal: Yes Gastroesophageal Reflux, Diverticulosis, Esophagitis, Gall Bladder Disease Musculoskeletal: No Chronic Back Pain Endocrine: No HEENT: Yes (POOR DENTITION) Loss of Vision: Denies Hearing Impairment: Denies Cancer: Yes Uterine Psychosocial: Yes (THC USE) Anxiety, Depression Integumentary: No Blood Disorders: No Adverse Reaction/Blood Tranf: No (LYN LUND APRN) Family Medical History Diabetes mellitus 19 FATHER FHx: brain tumor 19 MOTHER HPV infection G8 SISTER No Family History of: AIDS Abdominal aortic aneurysm [place]'s disease Alcoholism Alzheimer's disease Aphasia Arthritis Asthma Cancer of mouth Cardiovascular disease Cataracts Colon cancer Completed stroke Congenital disease Congenital heart disease Coronary thrombosis Cystic fibrosis Deafness or hearing loss Dementia Drug abuse Dysphasia Fibrocystic disease of breast Gastroenteritis Glaucoma Headache disorder Hypercholesterolemia Hypertension Infertility Kidney disease Myocardial infarction Neoplasm Not obtainable due to adoption Osteoporosis Parkinson's disease Prostate cancer Psychosocial problem Respiratory disorder Seizure disorder Severe allergy Thyroid disease Tuberculosis Visual disorder Heart Disease, Hypertension PAST SURGICAL HISTORY: -09/20/20--LAPAROSCOPY FOR INTUSSCEPTION BY DR. BHATTI -08/24/20 --EGD/COLONOSCOPY--DX GASTRITIS/ESOPHAGITIS -CHOLECYSTECTOMY -BILATERAL TUBAL LIGATION -HYSTERECTOMY/BILATERAL SALPINGO-OOPHORECTOMY 2005 -BLADDER SLING/LATER REMOVED -CARDIAC CATH 2012--NORMAL (LYN LUND APRN) Physical Exam Vital Signs Vital Signs - First Documented 12/30/20 12:15 Temp 36.2 Pulse 87 Resp 18 B/P (MAP) 158/117 (131) Pulse Ox 99 O2 Delivery Room Air (MARY VITAL MD) Vital Signs Capillary Refill : (LYN LUND APRN) Height/Weight/BMI Height: 5'6.00" Weight: 203lbs. 6.4oz. [id number]; 34.41 BMI Method:Stated General Appearance: WD/WN, no apparent distress HEENT: normal ENT inspection, pharynx normal Neck: full range of motion, normal inspection Respiratory: chest non-tender, lungs clear, normal breath sounds, no respiratory distress, no accessory muscle use Cardiovascular: normal peripheral pulses, regular rate, rhythm, no edema, no gallop Gastrointestinal: normal bowel sounds, soft, no organomegaly; No distended; guarding, tenderness (duffuse) Extremities: normal range of motion, non-tender, normal inspection Neurologic/Psychiatric: no motor/sensory deficits, alert, normal mood/affect, oriented x 3 Skin: normal color, warm/dry (KEVON,STORMY D LOGISTICS SERVICE REPRESENTATIVE) Progress/Results/Core Measures Results/Orders Lab Results Laboratory Tests Test 12/30/20 12:20 12/30/20 13:44 Range/Units White Blood Count 7.3 4.3-11.0 10^3/uL Red Blood Count 5.05 3.80-5.11 10^6/uL Hemoglobin 13.6 11.5-16.0 g/dL Hematocrit 43 35-52 % Mean Corpuscular Volume 86 80-99 fL Mean Corpuscular Hemoglobin 27 25-34 pg Mean Corpuscular Hemoglobin Concent 31 L 32-36 g/dL Red Cell Distribution Width 15.9 H 10.0-14.5 % Platelet Count 492 H 130-400 10^3/uL Mean Platelet Volume 9.3 9.0-12.2 fL Immature Granulocyte % (Auto) 0 % Neutrophils (%) (Auto) 52 42-75 % Lymphocytes (%) (Auto) 38 12-44 % Monocytes (%) (Auto) 8 0-12 % Eosinophils (%) (Auto) 1 0-10 % Basophils (%) (Auto) 1 0-10 % Neutrophils # (Auto) 3.8 1.8-7.8 10^3/uL Lymphocytes # (Auto) 2.8 1.0-4.0 10^3/uL Monocytes # (Auto) 0.6 0.0-1.0 10^3/uL Eosinophils # (Auto) 0.1 0.0-0.3 10^3/uL Basophils # (Auto) 0.0 0.0-0.1 10^3/uL Immature Granulocyte # (Auto) 0.0 0.0-0.1 10^3/uL Sodium Level 143 135-145 MMOL/L Potassium Level 4.1 3.6-5.0 MMOL/L Chloride Level 104 98-107 MMOL/L Carbon Dioxide Level 24 21-32 MMOL/L Anion Gap 15 H 5-14 MMOL/L Blood Urea Nitrogen 5 L 7-18 MG/DL Creatinine 0.85 0.60-1.30 MG/DL Estimat Glomerular Filtration Rate 73 BUN/Creatinine Ratio 6 Glucose Level 97 70-105 MG/DL Calcium Level 10.7 H 8.5-10.1 MG/DL Corrected Calcium 8.5-10.1 MG/DL Total Bilirubin 0.4 0.1-1.0 MG/DL Aspartate Amino Transf (AST/SGOT) 29 5-34 U/L Alanine Aminotransferase (ALT/SGPT) 23 0-55 U/L Alkaline Phosphatase 98 40-136 U/L Total Protein 8.6 H 6.4-8.2 GM/DL Albumin 4.7 H 3.2-4.5 GM/DL Lipase 43 8-78 U/L Urine Color YELLOW Urine Clarity CLEAR Urine pH 6.0 5-9 Urine Specific [place] 1.020 1.016-1.022 Urine Protein NEGATIVE NEGATIVE Urine Glucose (UA) NEGATIVE NEGATIVE Urine Ketones NEGATIVE NEGATIVE Urine Nitrite NEGATIVE NEGATIVE Urine Bilirubin NEGATIVE NEGATIVE Urine Urobilinogen 0.2 < = 1.0 MG/DL Urine Leukocyte Esterase NEGATIVE NEGATIVE Urine RBC (Auto) NEGATIVE NEGATIVE Urine RBC NONE /HPF Urine WBC 2-5 /HPF Urine Squamous Epithelial Cells 10-25 H /HPF Urine Crystals NONE /LPF Urine Bacteria FEW H /HPF Urine Casts NONE /LPF Urine Mucus SMALL H /LPF Urine Culture Indicated NO (MARY VITAL MD) Vital Signs/I&O 12/30/20 12/30/20 12:15 15:02 Temp 36.2 Pulse 87 104 Resp 18 18 B/P (MAP) 158/117 (131) 177/86 (131) Pulse Ox 99 97 O2 Delivery Room Air (MARY VITAL MD) Progress Progress Note : Progress Note Patient examined, no acute distress. Orders placed for Haldol 5 mg IM, IV fluids, Phenergan 25 mg IV push, fentanyl 50 mcg. Will order basic labs with lipase. As this is her norm during these episodes. Labs reviewed and are unremarkable. Nausea/vomiting under control. States she is still having quite a bit of abdominal pain. Orders given for an additional 50mcg IVP and Levsin for pain. Will re-evaluate. States second dose of Fentanyl inj did nothing for pain. Notes that she has not taken her Pepcid today. Will order Pepcid and Toradol as this has helped in the past. (LYN LUND LOGISTICS SERVICE REPRESENTATIVE) Departure Impression Primary Impression: Intractable nausea and vomiting Additional Impression: Cyclical vomiting syndrome Disposition: 01 HOME, SELF-CARE Condition: Improved Departure-Patient Inst. Decision time for Depature: 14:21 (LYN LUND LOGISTICS SERVICE REPRESENTATIVE) Referrals: [facility] [place] (PCP) Primary Care Physician AUDREY ELIZABETH (Family) Primary Care Physician Patient Instructions: Nausea and Vomiting, Adult (DC) Add. Discharge Instructions: Plan: 1. Keep follow up with Dr. Bhatti as directed. 2. Use your Zofran or Phenergan as directed for nausea. 3. Return for any new, concerning, or worsening symptoms. ATTENDING PHYSICIAN NOTE: I was physically present as attending physician in the emergency department during the care of this patient, but I was not directly involved in the decision making or delivery of care for this patient. (MARY VITAL MD) LYN LUND APRN Dec 30, 2020 12:24 MARY VITAL MD Dec 31, 2020 14:37
[2020-12-30] MEDS ORDERED: PROMETHAZINE INJ 25 MG/ML (PHENERGAN) AMP IVP ONE (12:30)
[2020-12-30] MEDS ORDERED: HALOPERIDOL 5 MG/ML (HALDOL) VIAL IM ONE (12:30)
[2020-12-30] MEDS ORDERED: NS IV 1000 ML 1,000 ML IV ONE (12:30)
[2020-12-30] MEDS ORDERED: fentaNYL INJ 100 MCG/2 ML AMP IVP ONE ×2 (12:30→14:15)
[2020-12-30 12:41] LABS: BASOPHILS % (AUTO) 1 % (0-10); EOSINOPHILS # (AUTO) 0.1 10^3/uL (0.0-0.3); EOSINOPHILS % (AUTO) 1 % (0-10); HEMATOCRIT 43 % (35-52); HEMOGLOBIN 13.6 g/dL (11.5-16.0); LYMPHOCYTES # (AUTO) 2.8 10^3/uL (1.0-4.0); LYMPHOCYTES % (AUTO) 38 % (12-44); MEAN CORPUSCULAR HEMOGLOBIN 27 pg (25-34); MEAN CORPUSCULAR HGB CONC 31 g/dL (32-36); MEAN CORPUSCULAR VOLUME 86 fL (80-99); MEAN PLATELET VOLUME 9.3 fL (9.0-12.2); MONOCYTES # (AUTO) 0.6 10^3/uL (0.0-1.0); MONOCYTES % (AUTO) 8 % (0-12); NEUTROPHILS # (AUTO) 3.8 10^3/uL (1.8-7.8); NEUTROPHILS % (AUTO) 52 % (42-75); PLATELET COUNT 492 10^3/uL (130-400); WHITE BLOOD COUNT 7.3 10^3/uL (4.3-11.0)
[2020-12-30 12:42] LABS: ALBUMIN 4.7 GM/DL (3.2-4.5); CHLORIDE 104 MMOL/L (98-107); POTASSIUM 4.1 MMOL/L (3.6-5.0); SODIUM 143 MMOL/L (135-145)
[2020-12-30 12:44] LABS: CALCIUM 10.7 MG/DL (8.5-10.1)
[2020-12-30 12:45] LABS: GLUCOSE 97 MG/DL (70-105); TOTAL PROTEIN 8.6 GM/DL (6.4-8.2)
[2020-12-30 12:46] LABS: CARBON DIOXIDE 24 MMOL/L (21-32)
[2020-12-30 12:47] LABS: BILIRUBIN,TOTAL 0.4 MG/DL (0.1-1.0)
[2020-12-30 12:48] LABS: ALKALINE PHOSPHATASE 98 U/L (40-136); CREATININE SERUM 0.85 MG/DL (0.60-1.30); GFR ESTIMATED 73
[2020-12-30 12:50] LABS: BUN/CREATININE RATIO 6
[2020-12-30 12:51] LABS: ALANINE AMINOTRANSFERASE 23 U/L (0-55)
[2020-12-30 12:52] LABS: LIPASE 43 U/L (8-78)
[2020-12-30 13:56] LABS: BILIRUBIN,URINE NEGATIVE (NEGATIVE); CLARITY,URINE CLEAR; COLOR,URINE YELLOW; GLUCOSE, URINE (UA) NEGATIVE (NEGATIVE); KETONES,URINE NEGATIVE (NEGATIVE); LEUKOCYTE ESTERASE ,URINE NEGATIVE (NEGATIVE); NITRITE,URINE NEGATIVE (NEGATIVE); PROTEIN,URINE NEGATIVE (NEGATIVE)
[2020-12-30 14:06] LABS: BACTERIA,URINE FEW /HPF
[2020-12-30] MEDS ORDERED: HYOSCYAMINE 0.125 MG (LEVSIN) TAB PO ONE (14:15)
[2020-12-30] MEDS ORDERED: FAMOTIDINE 20MG/2ML IV (PEPCID) IVP ONE (14:45)
[2020-12-30] MEDS ORDERED: KETOROLAC 30 MG/ML VIAL IVP ONE (14:45)
[2020-12-30] MEDS ORDERED: KETOROLAC 30 MG/ML VIAL ONE (14:52)
[2020-12-30] MEDS ORDERED: FAMOTIDINE 20MG/2ML IV (PEPCID) ONE (14:53)
[2020-12-30 15:02] VITALS: BP 177/86
[2020-12-31] MEDS ORDERED: DICY20TA10 PO (09:29)
== END 2020-12-30 15:01 | disposition home or self-care (01) ==
LOC: EDUNIT# 12:08 → ER 12:09
DX: R11.2 Nausea with vomiting, unspecified (principal); R11.15 Cyclical vomiting syndrome unrelated to migraine; J45.909 Unspecified asthma, uncomplicated; I10 Essential (primary) hypertension; K21.9 Gastro-esophageal reflux disease without esophagitis; Z79.899 Other long term (current) drug therapy
CPT/HCPCS: 36415; 80053; 81000; 83690; 85025

== ENCOUNTER 2020-12-31 08:13 | Emergency (ER) | payer SELFPAY ==
[~2020-12-31] VITALS: Ht 164.7 cm; Wt 93.0 kg
--- NOTE | 2020-12-31 08:36 | ED GI ---
General Chief Complaint: Abdominal/GI Problems Stated Complaint: VOMITING/ABD PAIN Source of Information: Patient Exam Limitations: No Limitations History of Present Illness Date Seen by Provider: Dec 31, 2020 Time Seen by Provider: 08:25 Initial Comments Patient is a 45-year-old female who presents to the emergency department today w ith a chief complaint of abdominal pain, left upper quadrant most specifically and nausea and vomiting, approximately 6 times this morning. Patient has had multiple previous visits for what appears to be a diagnosis of "cyclic vomiting syndrome". She was in the emergency department yesterday with similar complaints. She states nothing has changed. She has taken Zofran, 4 mg thr oughout the night with no relief of symptoms. She has not taken any other medications. No fevers or chills no URI symptoms. No blood in her vomitus, no blood in her stools reportedly. No urinary complaints. She is scheduled to have endoscopy with Dr. Bhatti on 06 January. She is not diabetic. All other review of systems reviewed and negative except as stated. Timing/Duration: 24 Hours Severity/Quality: Severe, Aching, Cramping Location: Other (Left upper quadrant) Radiation: No Radiation Associated Symptoms: Nausea/Vomiting Allergies and Home Medications Allergies Coded Allergies: morphine (Verified Allergy, Unknown, CAUSES "REBOUND HEADACHES", 12/13/20) PT HAS RECEIVED LORTAB & OXYCODONE IN THE PAST baclofen (Verified Adverse Reaction, Severe, 12/13/20) PATIENT UNAWARE OF REACTION BUT WAS HOSPITALIZED AFTER TAKING MEDICATION AND WAS TOLD IT WAS A REACTION DUE TO THE MEDICATION SHE TOOK. meloxicam (Verified Adverse Reaction, Severe, 12/13/20) PATIENT UNAWARE OF REACTION BUT WAS HOSPITALIZED AFTER TAKING MEDICATION AND WAS TOLD IT WAS A REACTION DUE TO THE MEDICATION SHE TOOK. NSAIDS (Non-Steroidal Anti-Inflamma (Verified Adverse Reaction, Mild, have IBS and avoid NSAIDS, 12/13/20) Home Medications Amlodipine Besylate 10 Mg Tablet, 10 MG PO DAILY, (Reported) LAST FILLED 09-02-2020 #30/30 DAY SUPPLY Calcium Carbonate 400 Mg Tab.chew, 400-800 MG PO PRN PRN for HEARTBURN, (Rep orted) Dicyclomine HCl 20 Mg Tablet, 20 MG PO QID, (Reported) Diphenhydramine HCl 25 Mg Capsule, 25-50 MG PO Q6H PRN for ALLERGY SYMPTOMS, (Reported) Famotidine 20 Mg Tablet, 20 MG PO BID PRN for INDIGESTION, (Reported) Lisinopril 40 Mg Tablet, 40 MG PO DAILY Prescribed by: SEFERINO MELO on 12/15/20909 Ondansetron 4 Mg Tab.rapdis, 4 MG PO Q4H PRN for NAUSEA/VOMITING-1ST LINE, (Reported) Ondansetron 4 Mg Tab.rapdis, 4 MG PO Q6H PRN for NAUSEA/VOMITING Prescribed by: SEFERINO MELO on 12/15/20 0910 Pantoprazole Sodium 40 Mg Tablet.dr, 40 MG PO HS, (Reported) LAST FILLED 08-20-2020 #30/30 DAY SUPPLY Propranolol HCl 80 Mg Tablet, 80 MG PO TID, (Reported) LAST FILLED 09-02-2020 #90/30 DAY SUPPLY Sucralfate 1 Gm Tablet, 1 GM PO QID, (Reported) LAST FILLED 08-29-2020 #120/30 DAY SUPPLY Sumatriptan Succinate 100 Mg Tablet, 100 MG PO DAILY PRN for MIGRAINE, (Reported) Tizanidine HCl 4 Mg Tablet, 4 MG PO TID PRN for MUSCLE SPASMS, (Reported) Patient Home Medication List Home Medication List Reviewed: Yes Review of Systems Review of Systems Constitutional: see HPI EENTM: No Symptoms Reported Respiratory: No Symptoms Reported Cardiovascular: No Symptoms Reported Gastrointestinal: Abdominal Pain, Nausea, Vomiting Genitourinary: No Symptoms Reported Musculoskeletal: no symptoms reported Skin: no symptoms reported Psychiatric/Neurological: No Symptoms Reported All Other Systems Reviewed Negative Unless Noted: Yes Past Iomrtnn-Xhownv-Wfsddc Hx Patient Social History Tobacco Use?: No Smoking Status: Former Smoker Substance use?: No Alcohol Use?: No Pt feels they are or have been: No Immunizations Up To Date Tetanus Booster (TDap): Unknown PED Vaccines UTD: No Seasonal Allergies Seasonal Allergies: No Past Medical History Surgery/Hospitalization HX: SEE HX Surgeries: Yes Abdominal, Bladder Surgery, Gallbladder, 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, Oophorectomy, Tubal Ligation Respiratory: No Asthma Currently Using CPAP: No Currently Using BIPAP: No Cardiac: No Hypertension, Syncope Neurological: Yes (Tremors) Seizure Disorder 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 Disorders: Yes (HYST 2005--NO PHYSICIAN DOCUMENTATION OF ANY KIND OF CANCER) 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 Disorders: 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 [employer]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 Sexually Transmitted Disease: Yes (HPV) HIV/AIDS: No Genitourinary: No Bladder Infection Gastrointestinal: Yes Gastroesophageal Reflux, Diverticulosis, Esophagitis, Gall Bladder Disease Musculoskeletal: No Chronic Back Pain Endocrine: No HEENT: Yes (POOR DENTITION) Loss of Vision: Denies Hearing Impairment: Denies Cancer: Yes Uterine Psychosocial: Yes (THC USE) Anxiety, Depression Integumentary: No Blood Disorders: No Adverse Reaction/Blood Tranf: No Family Medical History Diabetes mellitus 19 FATHER FHx: brain tumor 19 MOTHER HPV infection G8 SISTER No Family History of: AIDS Abdominal aortic aneurysm [place]'s disease Alcoholism Alzheimer's disease Aphasia Arthritis Asthma Cancer of mouth Cardiovascular disease Cataracts Colon cancer Completed stroke Congenital disease Congenital heart disease Coronary thrombosis Cystic fibrosis Deafness or hearing loss Dementia Drug abuse Dysphasia Fibrocystic disease of breast Gastroenteritis Glaucoma Headache disorder Hypercholesterolemia Hypertension Infertility Kidney disease Myocardial infarction Neoplasm Not obtainable due to adoption Osteoporosis Parkinson's disease Prostate cancer Psychosocial problem Respiratory disorder Seizure disorder Severe allergy Thyroid disease Tuberculosis Visual disorder Heart Disease, Hypertension PAST SURGICAL HISTORY: -09/20/20--LAPAROSCOPY FOR INTUSSCEPTION BY DR. BHATTI -08/24/20 --EGD/COLONOSCOPY--DX GASTRITIS/ESOPHAGITIS -CHOLECYSTECTOMY -BILATERAL TUBAL LIGATION -HYSTERECTOMY/BILATERAL SALPINGO-OOPHORECTOMY 2005 -BLADDER SLING/LATER REMOVED -CARDIAC CATH 2012--NORMAL Physical Exam Vital Signs Vital Signs - First Documented 12/31/20 08:18 Temp 36.2 Pulse 106 Resp 22 B/P (MAP) 210/118 (148) O2 Delivery Room Air Capillary Refill : Height/Weight/BMI Height: 5'6.00" Weight: 203lbs. 6.4oz. [id number]; 33.00 BMI Method:Stated General Appearance: WD/WN, no apparent distress HEENT: PERRL/EOMI Respiratory: lungs clear, normal breath sounds, no respiratory distress, no accessory muscle use Cardiovascular: regular rate, rhythm Gastrointestinal: normal bowel sounds, soft, tenderness (Diffuse abdominal tenderness most pronounced in the left upper quadrant) Extremities: non-tender, normal inspection, no pedal edema Neurologic/Psychiatric: alert, normal mood/affect, oriented x 3 Progress/Results/Core Measures Results/Orders My Orders Orders - ARIELLA WARNER MD Ns Iv 1000 Ml (Sodium Chloride 0.9%) (12/31/20 08:45) Metoclopramide Injection (Reglan Injecti (12/31/20 08:45) Diphenhydramine Injection (Benadryl Inje (12/31/20 08:45) Ketorolac Injection (Toradol Injection) (12/31/20 08:45) Medications Given in ED Current Medications Medications Dose Ordered Sig/Judi Route Start Time Stop Time Status Last Admin Dose Admin Diphenhydramine HCl 50 mg ONCE ONCE IV 12/31/20 08:45 12/31/20 08:46 DC 12/31/20 08:44 50 MG Ketorolac Tromethamine 15 mg ONCE ONCE IVP 12/31/20 08:45 12/31/20 08:46 DC 12/31/20 08:44 15 MG Metoclopramide HCl 10 mg ONCE ONCE IVP 12/31/20 08:45 12/31/20 08:46 DC 12/31/20 08:45 10 MG Vital Signs/I&O 12/31/20 08:18 Temp 36.2 Pulse 106 Resp 22 B/P (MAP) 210/118 (148) O2 Delivery Room Air Progress Progress Note : Time: 09:25 Progress Note Patient reevaluated and states that her pain is still present. No relief from the Toradol. She states her nausea is under better control. We will give her some oral Bentyl. She can take Tylenol or ibuprofen at home. I do not see an indication for chronic narcotic management. She is sitting up and looks improved. She is quite hypertensive but takes medication at home for her blood pressure. Patient is encouraged to take her daily medications on discharge. Abdominal exam is benign. All questions have been sought and answered. Patient is stable for discharge. Departure Impression Primary Impression: Chronic abdominal pain Disposition: 01 HOME, SELF-CARE Condition: Stable Departure-Patient Inst. Decision time for Depature: 09:27 Referrals: [facility] (PCP) Primary Care Physician AUDREY ELIZABETH (Family) Primary Care Physician LOLY BHATTI DO Patient Instructions: CHRONIC PAIN Add. Discharge Instructions: Follow a clear liquid diet today and then slowly advance your diet as tolerated. Take the Zofran 1 to 2 tablets every 6-8 hours as needed for nausea and vomiting. You can also take [id number] Benadryl with this to combat your nausea. I have given you a prescription for Bentyl which is an abdominal pain medication. Take this every 6 hours. You should take it 30 minutes before attempting to eat. Return to the emergency room for reevaluation if you develop any fevers, chills, worsening symptoms or other emergent concerns. Scripts Dicyclomine HCl (Dicyclomine HCl) 20 Mg Tablet 20 MG PO Q6H, #30 TAB Prov: ARIELLA WARNER MD 12/31/20 ARIELLA WARNER MD Dec 31, 2020 08:36
[2020-12-31] MEDS ORDERED: KETOROLAC 30 MG/ML VIAL IVP ONE (08:45)
[2020-12-31] MEDS ORDERED: NS IV 1000 ML 1,000 ML IV SCH (08:45)
[2020-12-31] MEDS ORDERED: METOCLOPRAMIDE INJ 10 MG/2 ML (REGLAN) IVP ONE (08:45)
[2020-12-31] MEDS ORDERED: diphenhydrAMINE 50 MG/ML INJ (BENADRYL) IV ONE (08:45)
[2020-12-31] MEDS ORDERED: DICYCLOMINE 10 MG (BENTYL) CAP PO STA (09:29)
[2020-12-31] MEDS ORDERED: DICY20TA10 PO (09:29)
[2020-12-31 09:43] VITALS: BP 193/112
== END 2020-12-31 09:43 | disposition home or self-care (01) ==
LOC: EDUNIT# 08:13 → ER 08:15
DX: G89.29 Other chronic pain (principal); R10.12 Left upper quadrant pain; I10 Essential (primary) hypertension; G40.909 Epilepsy, unspecified, not intractable, without status epilepticus; K21.9 Gastro-esophageal reflux disease without esophagitis; M54.9 Dorsalgia, unspecified; Z87.19 Personal history of other diseases of the digestive system; Z90.49 Acquired absence of other specified parts of digestive tract; Z98.51 Tubal ligation status; Z87.891 Personal history of nicotine dependence; Z79.899 Other long term (current) drug therapy; Z90.722 Acquired absence of ovaries, bilateral; Z88.5 Allergy status to narcotic agent; Z88.6 Allergy status to analgesic agent

== ENCOUNTER 2021-01-01 15:56 | Emergency (ER) | payer SELFPAY ==
[~2021-01-01] VITALS: Ht 167 cm; Wt 93.0 kg
[2021-01-01] MEDS ORDERED: DICYCLOMINE 10 MG/ML (BENTYL) 2 ML AMP IM STA (16:27)
[2021-01-01] MEDS ORDERED: diphenhydrAMINE 50 MG/ML INJ (BENADRYL) IV ONE (16:30)
[2021-01-01] MEDS ORDERED: METOCLOPRAMIDE INJ 10 MG/2 ML (REGLAN) IVP ONE (16:30)
[2021-01-01] MEDS ORDERED: NS IV 500 ML 500 ML IV SCH (16:30)
--- NOTE | 2021-01-01 16:39 | ED Abdominal Pain ---
General Chief Complaint: Abdominal/GI Problems Stated Complaint: VOMITING Nursing Triage Note: PT TO ED W/ C/O N/V ONSET X3 DAYS. PT REPORTS THIS IS HER 3RD VISIT TO THIS ED FOR SAME C/O IN THE LAST 3 DAYS. PT REPORTS TODAY SHE HAS VOMITED X5 TODAY ET STATES HAS NOT EATEN ANYTHING SINCE HER VISIT YESTERDAY. Source of Information: Patient Exam Limitations: No Limitations History of Present Illness Date Seen by Provider: Jan 01, 2021 Time Seen by Provider: 16:30 Initial Comments Patient is a 45-year-old with a history of apparent cyclic vomiting syndrome that I saw yesterday for same symptoms comes in with a chief complaint of persistent mostly left upper quadrant abdominal pain and nausea and vomiting. This is her third visit to the ER in the last 3 days. No fevers or chills. No diarrhea, black or bloody stools. No urinary complaints. She is not having chest pain or shortness of breath. She states she has had 4 doses of Zofran and 425 mg Benadryl today as well as the Bentyl without any relief of her symptoms. She has endoscopy scheduled with Dr. Bhatti on January 06 of this week. She denies blood in her vomitus. On my entry into the room the patient is sitting comfortably on the bed in no acute distress. She states she had just vomited. All other review of systems reviewed and negative except as stated above. Timing/Duration: 2-3 Days Severity/Quality: Cramping Location: LUQ Radiation: No Radiation Activities at Onset: None Associated Symptoms: Nausea/Vomiting Allergies and Home Medications Allergies Coded Allergies: morphine (Verified Allergy, Unknown, CAUSES "REBOUND HEADACHES", 12/13/20) PT HAS RECEIVED LORTAB & OXYCODONE IN THE PAST baclofen (Verified Adverse Reaction, Severe, 12/13/20) PATIENT UNAWARE OF REACTION BUT WAS HOSPITALIZED AFTER TAKING MEDICATION AND WAS TOLD IT WAS A REACTION DUE TO THE MEDICATION SHE TOOK. meloxicam (Verified Adverse Reaction, Severe, 12/13/20) PATIENT UNAWARE OF REACTION BUT WAS HOSPITALIZED AFTER TAKING MEDICATION AND WAS TOLD IT WAS A REACTION DUE TO THE MEDICATION SHE TOOK. NSAIDS (Non-Steroidal Anti-Inflamma (Verified Adverse Reaction, Mild, have IBS and avoid NSAIDS, 12/13/20) Home Medications Amlodipine Besylate 10 Mg Tablet, 10 MG PO DAILY, (Reported) LAST FILLED 09-02-2020 #30/30 DAY SUPPLY Calcium Carbonate 400 Mg Tab.chew, 400-800 MG PO PRN PRN for HEARTBURN, (Reported) Dicyclomine HCl 20 Mg Tablet, 20 MG PO QID, (Reported) Dicyclomine HCl 20 Mg Tablet, 20 MG PO Q6H Prescribed by: ARIELLA WARNER on 12/31/20 0929 Diphenhydramine HCl 25 Mg Capsule, 25-50 MG PO Q6H PRN for ALLERGY SYMPTOMS, (Reported) Famotidine 20 Mg Tablet, 20 MG PO BID PRN for INDIGESTION, (Reported) Lisinopril 40 Mg Tablet, 40 MG PO DAILY Prescribed by: SEFERINO MELO on 12/15/20 09 Ondansetron 4 Mg Tab.rapdis, 4 MG PO Q4H PRN for NAUSEA/VOMITING-1ST LINE, (Reported) Ondansetron 4 Mg Tab.rapdis, 4 MG PO Q6H PRN for NAUSEA/VOMITING Prescribed by: SEFERINO MELO on 12/15/20 09 Pantoprazole Sodium 40 Mg Tablet.dr, 40 MG PO HS, (Reported) LAST FILLED 08-20-2020 #30/30 DAY SUPPLY Propranolol HCl 80 Mg Tablet, 80 MG PO TID, (Reported) LAST FILLED 09-02-2020 #90/30 DAY SUPPLY Sucralfate 1 Gm Tablet, 1 GM PO QID, (Reported) LAST FILLED 08-29-2020 #120/30 DAY SUPPLY Sumatriptan Succinate 100 Mg Tablet, 100 MG PO DAILY PRN for MIGRAINE, (Reported) Tizanidine HCl 4 Mg Tablet, 4 MG PO TID PRN for MUSCLE SPASMS, (Reported) Patient Home Medication List Home Medication List Reviewed: Yes Review of Systems Review of Systems Constitutional: see HPI Respiratory: No Symptoms Reported Cardiovascular: No Symptoms Reported Gastrointestinal: Abdominal Pain, Nausea, Vomiting Genitourinary: No Symptoms Reported Musculoskeletal: no symptoms reported Skin: no symptoms reported Psychiatric/Neurological: No Symptoms Reported All Other Systems Reviewed Negative Unless Noted: Yes Past Dqizwrn-Ueblxb-Dytppq Hx Patient Social History Tobacco Use?: No Use of E-Cig and/or Vaping dev: No Substance use?: No Alcohol Use?: No Pt feels they are or have been: No Immunizations Up To Date Tetanus Booster (TDap): Unknown PED Vaccines UTD: No Seasonal Allergies Seasonal Allergies: No Past Medical History Surgery/Hospitalization HX: TONSILLECTOMY, HYSTERECTOMY, GALLBLADDER Surgeries: Yes Abdominal, Bladder Surgery, Gallbladder, 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, Oophorectomy, Tubal Ligation Respiratory: No Asthma Currently Using CPAP: No Currently Using BIPAP: No Cardiac: No Hypertension, Syncope Neurological: Yes (Tremors) Seizure Disorder 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 Disorders: Yes (ST 2005--NO PHYSICIAN DOCUMENTATION OF ANY KIND OF CANCER) 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 Sexually Transmitted Disease: Yes (HPV) HIV/AIDS: No Genitourinary: No Bladder Infection Gastrointestinal: Yes Gastroesophageal Reflux, Diverticulosis, Esophagitis, Gall Bladder Disease Musculoskeletal: No Chronic Back Pain Endocrine: No HEENT: Yes (POOR DENTITION) Loss of Vision: Denies Hearing Impairment: Denies Cancer: Yes Uterine Psychosocial: Yes (THC USE) Anxiety, Depression Integumentary: No Blood Disorders: No Adverse Reaction/Blood Tranf: No Family Medical History Diabetes mellitus 19 FATHER FHx: brain tumor 19 MOTHER HPV infection G8 SISTER No Family History of: AIDS Abdominal aortic aneurysm [place]'s disease Alcoholism Alzheimer's disease Aphasia Arthritis Asthma Cancer of mouth Cardiovascular disease Cataracts Colon cancer Completed stroke Congenital disease Congenital heart disease Coronary thrombosis Cystic fibrosis Deafness or hearing loss Dementia Drug abuse Dysphasia Fibrocystic disease of breast Gastroenteritis Glaucoma Headache disorder Hypercholesterolemia Hypertension Infertility Kidney disease Myocardial infarction Neoplasm Not obtainable due to adoption Osteoporosis Parkinson's disease Prostate cancer Psychosocial problem Respiratory disorder Seizure disorder Severe allergy Thyroid disease Tuberculosis Visual disorder Heart Disease, Hypertension PAST SURGICAL HISTORY: -09/20/20--LAPAROSCOPY FOR INTUSSCEPTION BY DR. BHATTI -08/24/20 --EGD/COLONOSCOPY--DX GASTRITIS/ESOPHAGITIS -CHOLECYSTECTOMY -BILATERAL TUBAL LIGATION -HYSTERECTOMY/BILATERAL SALPINGO-OOPHORECTOMY 2005 -BLADDER SLING/LATER REMOVED -CARDIAC CATH 2012--NORMAL Physical Exam Vital Signs Vital Signs - First Documented 01/01/21 16:04 Temp 37.6 Pulse 105 Resp 20 B/P (MAP) 177/119 (138) Pulse Ox 95 O2 Delivery Room Air Capillary Refill : Less Than 3 Seconds Height/Weight/BMI Height: 5'6.00" Weight: 203lbs. 6.4oz. 92.299152af; 33.00 BMI Method:Stated General Appearance: WD/WN, no apparent distress HEENT: normal ENT inspection Neck: normal inspection Respiratory: lungs clear, normal breath sounds, no respiratory distress, no accessory muscle use Cardiovascular: regular rate, rhythm Gastrointestinal: soft, abnormal bowel sounds (Hypoactive very quiet bowel sounds auscultated), tenderness (Minimal tenderness in the left upper quadrant) Extremities: normal range of motion, non-tender, normal inspection, no pedal edema Neurologic/Psychiatric: alert, normal mood/affect, oriented x 3 Skin: normal color, warm/dry Progress/Results/Core Measures Results/Orders Vital Signs/I&O 01/01/21 16:04 Temp 37.6 Pulse 105 Resp 20 B/P (MAP) 177/119 (138) Pulse Ox 95 O2 Delivery Room Air Blood Pressure Mean: 138 Progress Progress Note : Time: 16:37 Progress Note Patient will be treated in the emergency department with 500 cc of normal saline as well as Reglan, Benadryl, dicyclomine. She will not be given narcotics at this visit. She is having normal bowel movements I do not suspect bowel obstruction. Her abdomen is not particularly tender to palpation. Patient states that she has had 4 doses of Zofran so I am not going to give her any more of that today. She is nontoxic in appearance. Appears comfortable. Vital signs show quite hypertensive blood pressure she states she vomited up her blood pressure medication today and she did not think that she could retake it. Anticipates this patient will be discharged home Departure Impression Primary Impression: Nausea & vomiting Qualified Codes: R11.2 - Nausea with vomiting, unspecified Disposition: 01 HOME, SELF-CARE Condition: Stable Departure-Patient Inst. Decision time for Depature: 16:39 Referrals: [facility] [place] (PCP) Primary Care Physician AUDREY ELIZABETH (Family) Primary Care Physician Patient Instructions: Nausea and Vomiting, Adult Add. Discharge Instructions: Continue your medications as prescribed at home. You can take 2 Benadryl every 6 hours as needed with your Zofran. Continue to take the Bentyl 4 times daily. You can also take Tylenol with this. Keep your follow-up appointment with Dr. Bhatti at the end of the week. Come back to the emergency department if you develop fever in the setting of abdominal pain. ARIELLA WARNER MD Jan 01, 2021 16:39
[2021-01-01 16:44] LABS: POTASSIUM 3.3 MMOL/L (3.6-5.0)
[2021-01-01 16:45] LABS: CALCIUM 10.9 MG/DL (8.5-10.1)
[2021-01-01 16:49] LABS: CREATININE SERUM 1.06 MG/DL (0.60-1.30)
[2021-01-01 17:14] VITALS: BP 184/108
== END 2021-01-01 17:14 | disposition home or self-care (01) ==
LOC: EDUNIT# 15:56 → ER 15:58
DX: R11.2 Nausea with vomiting, unspecified (principal); J45.909 Unspecified asthma, uncomplicated; I10 Essential (primary) hypertension; K21.9 Gastro-esophageal reflux disease without esophagitis; Z79.899 Other long term (current) drug therapy
CPT/HCPCS: 36415; 80048

== ENCOUNTER 2021-01-08 01:34 | Emergency (ER) | payer SELFPAY ==
[~2021-01-08] VITALS: Ht 167.7 cm; Wt 89.8 kg
[2021-01-08] MEDS ORDERED: LACTATED RINGERS 1,000 ML IV ONE (02:15)
[2021-01-08] MEDS ORDERED: DROPERIDOL 5 MG/2 ML (INAPSINE) AMP IV ONE ×2 (02:15→03:15)
[2021-01-08 02:19] LABS: POTASSIUM 2.9 MMOL/L (3.6-5.0)
[2021-01-08 02:20] LABS: CALCIUM 10.2 MG/DL (8.5-10.1)
[2021-01-08 02:24] LABS: CREATININE SERUM 0.98 MG/DL (0.60-1.30)
[2021-01-08] MEDS ORDERED: KCL 20 MEQ TAB (K-DUR) PO ONE (02:45)
[2021-01-08] MEDS: MAGNESIUM 1 GM/100 ML IVPB 100 ML IV SCH ×2 (02:45→04:00)
[2021-01-08] MEDS ORDERED: FAMOTIDINE 20MG/2ML IV (PEPCID) IVP ONE (03:15)
--- NOTE | 2021-01-08 03:37 | ED GI ---
General Chief Complaint: Abdominal/GI Problems Stated Complaint: N/V Nursing Triage Note: Pt ambulates to ED 5 with c/o nausea, vomiting and abdominal pain since 1500 01/07/21. Took Zofran at 1700 with no relief. Source of Information: Patient Exam Limitations: No Limitations History of Present Illness Date Seen by Provider: Jan 08, 2021 Time Seen by Provider: 01:47 Initial Comments 45-year-old female with past medical history of cyclical vomiting well-known to this emergency department coming in due to nausea and vomiting that started around 3 PM on January 07. She took Zofran with no relief so came into the emergency department. She states she has abdominal cramping that is moderate to severe, constant, and slightly better after vomiting. She has tried her usual stocking. Hot showers which have not been effective. She denies smoking and marijuana within the past year. She states this feels similar to all of the episodes that she has previously come to the emergency department. Allergies and Home Medications Allergies Coded Allergies: morphine (Verified Allergy, Unknown, CAUSES "REBOUND HEADACHES", 12/13/20) PT HAS RECEIVED LORTAB & OXYCODONE IN THE PAST baclofen (Verified Adverse Reaction, Severe, 12/13/20) PATIENT UNAWARE OF REACTION BUT WAS HOSPITALIZED AFTER TAKING MEDICATION AND WAS TOLD IT WAS A REACTION DUE TO THE MEDICATION SHE TOOK. meloxicam (Verified Adverse Reaction, Severe, 12/13/20) PATIENT UNAWARE OF REACTION BUT WAS HOSPITALIZED AFTER TAKING MEDICATION AND WAS TOLD IT WAS A REACTION DUE TO THE MEDICATION SHE TOOK. NSAIDS (Non-Steroidal Anti-Inflamma (Verified Adverse Reaction, Mild, have IBS and avoid NSAIDS, 12/13/20) Home Medications Amlodipine Besylate 10 Mg Tablet, 10 MG PO DAILY, (Reported) LAST FILLED 09-02-2020 #30/ DAY SUPPLY Calcium Carbonate 400 Mg Tab.chew, 400-800 MG PO PRN PRN for HEARTBURN, (Reported) Dicyclomine HCl 20 Mg Tablet, 20 MG PO QID, (Reported) Dicyclomine HCl 20 Mg Tablet, 20 MG PO Q6H Prescribed by: ARIELLA WARNER on 12/31/20 0929 Diphenhydramine HCl 25 Mg Capsule, 25-50 MG PO Q6H PRN for ALLERGY SYMPTOMS, (Reported) Famotidine 20 Mg Tablet, 20 MG PO BID PRN for INDIGESTION, (Reported) Lisinopril 40 Mg Tablet, 40 MG PO DAILY Prescribed by: SEFEIRNO MELO on 12/15/20 0910 Ondansetron 4 Mg Tab.rapdis, 4 MG PO Q4H PRN for NAUSEA/VOMITING-1ST LINE, (Reported) Ondansetron 4 Mg Tab.rapdis, 4 MG PO Q6H PRN for NAUSEA/VOMITING Prescribed by: SEFERINO MELO on 12/15/20 0910 Pantoprazole Sodium 40 Mg Tablet.dr, 40 MG PO HS, (Reported) LAST FILLED 08-20-2020 #30/30 DAY SUPPLY Promethazine HCl 25 Mg Tablet, 25 MG PO Q6H PRN for NAUSEA/VOMITING Prescribed by: JOSEFINA RODRIGUEZ on 01/08/21 0516 Last Action: New Order Propranolol HCl 80 Mg Tablet, 80 MG PO TID, (Reported) LAST FILLED 09-02-2020 #90/30 DAY SUPPLY Sucralfate 1 Gm Tablet, 1 GM PO QID, (Reported) LAST FILLED 08-29-2020 #120/30 DAY SUPPLY Sumatriptan Succinate 100 Mg Tablet, 100 MG PO DAILY PRN for MIGRAINE, ( Reported) Tizanidine HCl 4 Mg Tablet, 4 MG PO TID PRN for MUSCLE SPASMS, (Reported) Patient Home Medication List Home Medication List Reviewed: Yes Review of Systems Review of Systems Constitutional: No fever EENTM: No Blurred Vision Respiratory: Denies Cough, Denies Shortness of Air Cardiovascular: Denies Chest Pain Gastrointestinal: Abdominal Pain; Denies Diarrhea; Nausea, Vomiting Genitourinary: Denies Burning Musculoskeletal: No back pain Skin: No rash Psychiatric/Neurological: Denies Anxiety, Denies Depressed Endocrine: No Symptoms Reported Hematologic/Lymphatic: No Symptoms Reported All Other Systems Reviewed Negative Unless Noted: Yes Past Ogkfmni-Kxtasg-Pvjkdx Hx Patient Social History Tobacco Use?: No Smokeless Tobacco Frequency: Never a User Substance use?: No Additional substance use comme: EX-MARIJUANA USE PER PT Alcohol Use?: No Pt feels they are or have been: No Immunizations Up To Date Tetanus Booster (TDap): Unknown PED Vaccines UTD: No COVID19 Vaccine Cord Cutter: NO VAX Seasonal Allergies Seasonal Allergies: No Past Medical History Surgery/Hospitalization HX: TONSILLECTOMY, HYSTERECTOMY, GALLBLADDER Surgeries: Yes Abdominal, Bladder Surgery, Gallbladder, 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, Oophorectomy, Tubal Lig ation Respiratory: No Asthma Currently Using CPAP: No Currently Using BIPAP: No Cardiac: No Hypertension, Syncope Neurological: Yes (Tremors) Seizure Disorder 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 Disorders: Yes (ST 2005--NO PHYSICIAN DOCUMENTATION OF ANY KIND OF CANCER) 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 Disorders: Denies HEAD OF MARKETING History: 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 Sexually Transmitted Disease: Yes (HPV) HIV/AIDS: No Genitourinary: No Bladder Infection Gastrointestinal: Yes Gastroesophageal Reflux, Diverticulosis, Esophagitis, Gall Bladder Disease Musculoskeletal: No Chronic Back Pain Endocrine: No HEENT: Yes (POOR DENTITION) Loss of Vision: Denies Hearing Impairment: Denies Cancer: Yes Uterine Psychosocial: Yes (THC USE) Anxiety, Depression Integumentary: No Blood Disorders: No Adverse Reaction/Blood Tranf: No Family Medical History Diabetes mellitus 19 FATHER FHx: brain tumor 19 MOTHER HPV infection G8 SISTER No Family History of: AIDS Abdominal aortic aneurysm Madi's disease Alcoholism Alzheimer's disease Aphasia Arthritis Asthma Cancer of mouth Cardiovascular disease Cataracts Colon cancer Completed stroke Congenital disease Congenital heart disease Coronary thrombosis Cystic fibrosis Deafness or hearing loss Dementia Drug abuse Dysphasia Fibrocystic disease of breast Gastroenteritis Glaucoma Headache disorder Hypercholesterolemia Hypertension Infertility Kidney disease Myocardial infarction Neoplasm Not obtainable due to adoption Osteoporosis Parkinson's disease Prostate cancer Psychosocial problem Respiratory disorder Seizure disorder Severe allergy Thyroid disease Tuberculosis Visual disorder Heart Disease, Hypertension PAST SURGICAL HISTORY: -09/20/20--LAPAROSCOPY FOR INTUSSCEPTION BY DR. BHATTI -08/24/20 --EGD/COLONOSCOPY--DX GASTRITIS/ESOPHAGITIS -CHOLECYSTECTOMY -BILATERAL TUBAL LIGATION -HYSTERECTOMY/BILATERAL SALPINGO-OOPHORECTOMY 2005 -BLADDER SLING/LATER REMOVED -CARDIAC CATH 2012--NORMAL Physical Exam Vital Signs Vital Signs - First Documented 01/08/21 01:47 Temp 36.4 Pulse 108 Resp 18 B/P (MAP) 210/125 (153) Pulse Ox 96 O2 Delivery Room Air Capillary Refill : Height/Weight/BMI Height: 5'6.00" Weight: 203lbs. 6.4oz. 92.273203oh; 31.00 BMI Method:Stated General Appearance: WD/WN, no apparent distress HEENT: PERRL/EOMI, normal ENT inspection, pharynx normal Neck: non-tender, full range of motion, supple, normal inspection Respiratory: chest non-tender, lungs clear, normal breath sounds, no respiratory distress, no accessory muscle use Cardiovascular: regular rate, rhythm, no edema, no murmur Gastrointestinal: normal bowel sounds, non tender, soft; No distended, No guarding, No rebound Extremities: normal range of motion, non-tender, normal inspection, no calf tenderness Back: normal inspection, no CVA tenderness Neurologic/Psychiatric: no motor/sensory deficits, alert, normal mood/affect Skin: normal color, warm/dry Lymphatic: no adenopathy Progress/Results/Core Measures Results/Orders Lab Results Laboratory Tests Test 01/08/21 01:58 Range/Units Sodium Level 145 135-145 MMOL/L Potassium Level 2.9 L 3.6-5.0 MMOL/L Chloride Level 102 98-107 MMOL/L Carbon Dioxide Level 25 21-32 MMOL/L Anion Gap 18 H 5-14 MMOL/L Blood Urea Nitrogen 12 7-18 MG/DL Creatinine 0.98 0.60-1.30 MG/DL Estimat Glomerular Filtration Rate 62 BUN/Creatinine Ratio 12 Glucose Level 117 H 70-105 MG/DL Calcium Level 10.2 H 8.5-10.1 MG/DL My Orders Orders - JOSEFINA RODRIGUEZ MD Ed Iv/Invasive Line Start (01/08/21 02:03) Lactated Ringers (Lr 1000 Ml Iv Solution (01/08/21 02:15) Basic Metabolic Panel (01/08/21 02:03) Droperidol Injection (Inapsine Injection (01/08/21 02:15) Ekg Tracing (01/08/21 02:05) Potassium Chloride (Tablet) (K Dur Table (01/08/21 02:45) Magnesium 1 Gm/100 Ml Ivpb (Magnesium Gutierrez (01/08/21 02:45) Droperidol Injection (Inapsine Injection (01/08/21 03:15) Famotidine Injection (Pepcid Injection) (01/08/21 03:15) Medications Given in ED Current Medications Medications Dose Ordered Sig/Judi Route Start Time Stop Time Status Last Admin Dose Admin Droperidol 1.25 mg ONCE ONCE IV 01/08/21 02:15 01/08/21 02:16 DC 01/08/21 02:32 1.25 MG Droperidol 1.25 mg ONCE ONCE IV 01/08/21 03:15 01/08/21 03:16 DC 01/08/21 03:23 1.25 MG Famotidine 20 mg ONCE ONCE IVP 01/08/21 03:15 01/08/21 03:16 DC 01/08/21 03:23 20 MG Lactated Ringer's 1,000 ml @ 0 mls/hr Q0M ONCE IV 01/08/21 02:15 01/08/21 02:16 DC 01/08/21 02:19 0 MLS/HR Potassium Chloride 60 meq ONCE ONCE PO 01/08/21 02:45 01/08/21 02:46 DC 01/08/21 04:42 60 MEQ Vital Signs/I&O 01/08/21 01:47 Temp 36.4 Pulse 108 Resp 18 B/P (MAP) 210/125 (153) Pulse Ox 96 O2 Delivery Room Air Blood Pressure Mean: 153 Progress Progress Note : Progress Note 45-year-old female with past medical history of cyclical vomiting coming in due to vomiting. ABCs were intact and vitals were stable on presentation although she is mildly tachycardic to the low 100s. An IV was placed and she was given a bolus of IV fluids due to the tachycardia. Electrolytes show potassium of 2.9. She was given oral potassium supplementation as well as IV magnesium. EKG was obtained to assess QTC afterwards she was given IV droperidol x2 which completely stopped her vomiting. Pain is better as well. She was also given IV Pepcid. Her abdominal exam is reassuring and she shows no signs of peritonitis on repeat abdominal exams. I reviewed her previous ED visits within the past month and she has had a negative CT abdomen and pelvis with the same presentation. I do not believe further work-up is necessary at this time given her same presentation. Continue to monitor the patient for couple hours after she took the oral potassium and she did not have any repeat episodes of vomiting. At this point I believe she is stable for discharge. She was sent home with strict return precautions. She states she has an appointment with a specialist regarding this on the . Of note, I told the patient she should begin taking a potassium supplement at home, and she states that she is doing this. Departure Impression Primary Impression: Cyclical vomiting syndrome Disposition: HOME, SELF-CARE Condition: Stable Departure-Patient Inst. Decision time for Depature: 05:13 Referrals: [facility] (PCP) Primary Care Physician AUDREY ELIZABETH (Family) Primary Care Physician Patient Instructions: Nausea and Vomiting, Adult Add. Discharge Instructions: You were seen in the emergency department for vomiting and abdominal pain. Your electrolytes were a little low so we replaced those. Please take Zofran and/or Phenergan for your nausea at home and try to drink small amounts of fluids at a time. Please follow-up with the doctor on the that you stated you are going to see. If you have any concerns then please come back to the emergency department. All discharge instructions reviewed with patient and/or family. Voiced understanding. Scripts Promethazine HCl (Promethazine Tablet) 25 Mg Tablet 25 MG PO Q6H PRN for NAUSEA/VOMITING for 4 Days, #24 TAB 0 Refills Prov: JOSEFINA RODRIGUEZ MD 01/08/21 JOSEFINA RODRIGUEZ MD Jan 08, 2021 03:36
[2021-01-08] MEDS ORDERED: PROM25TA14 PO (05:16)
[2021-01-08 05:18] VITALS: BP 168/112
== END 2021-01-08 05:20 | disposition home or self-care (01) ==
LOC: EDUNIT# 01:34 → ER 01:35
DX: R11.15 Cyclical vomiting syndrome unrelated to migraine (principal); J45.909 Unspecified asthma, uncomplicated; I10 Essential (primary) hypertension; K21.9 Gastro-esophageal reflux disease without esophagitis; Z79.899 Other long term (current) drug therapy
CPT/HCPCS: 36415; 80048; 93005

== ENCOUNTER 2021-01-12 05:28 | Outpatient (RCR) | payer SELFPAY ==
[~2021-01-12] VITALS: Ht 167.6 cm; Wt 95.7 kg
== END 2021-01-12 10:48 | disposition home or self-care (01) ==
LOC: PREOP 05:28
PROVIDERS: ATTEND Surgery
DX: Z01.818 Encounter for other preprocedural examination (principal); K29.70 Gastritis, unspecified, without bleeding; R07.9 Chest pain, unspecified
CPT/HCPCS: 87635

== ENCOUNTER 2021-01-16 07:03 | Day surgery (SDC) | payer SELFPAY ==
[~2021-01-16] VITALS: Ht 167.7 cm; Wt 95.7 kg
[2021-01-16] MEDS ORDERED: LACTATED RINGERS 1,000 ML IV STA (07:13)
[2021-01-16] MEDS ORDERED: HURRICAINE EXT TUBE (BENZOCAINE) XX PRN (07:15)
[2021-01-16 07:29] VITALS: BP 142/102
[2021-01-16] MEDS ORDERED: MIDAZOLAM 2 MG/2 ML (VERSED) VIAL ONE (07:32)
[2021-01-16] MEDS ORDERED: proPOfol 200 MG/20 ML (DIPRIVAN) VIAL IV ONE (07:32)
--- NOTE | 2021-01-16 08:10 | Progress Note-Pre Operative ---
Pre-Operative Progress Note H&P Reviewed The H&P was reviewed, patient examined and no changes noted. Time Seen by Provider: 08:07 Date H&P Reviewed: Jan 16, 2021 Time H&P Reviewed: 08:07 Pre-Operative Diagnosis: Chronic Gastritis LOLY BHATTI DO Jan 16, 2021 08:10
--- NOTE | 2021-01-16 09:12 | Progress Note-Post Operative ---
Post-Operative Progess Note Surgeon (s)/Rn Plastic Surgery (s) Surgeon LOLY BHATTI DO Rn Plastic Surgery: none Pre-Operative Diagnosis Chronic Gastritis Post-Operative Diagnosis Gastritis Small hiatal hernia esophagitis Procedure & Operative Findings Date of Procedure 01/16/21 Procedure Performed/Findings PROCEDURE NOTE: After informed consent was obtained, the patient was brought to the endoscopy suite, placed in bed in left lateral decubitus position. She was administered IV sedation by the TRIAGE CLINICIAN who then monitored vitals the entire time, heart rate, blood pressure and pulse ox and the scope was inserted down the mouth through the esophagus into the stomach. On the way down, noted some mild esophagitis, took a picture, pushed into the stomach (noted retained food), pushed past the antrum into the duodenum. Duodenum looked good. Pulled back and noted some mild gastritis did a biopsy of antrum, then retroflexed the scope, saw very small hiatal hernia, took a picture of this and then did a biopsy of the body of the stomach. Next, pulled the scope into the GE junction and then did a biopsy of the GE junction. Pushed the scope back into the stomach, suctioned all the air out of the stomach. At this point pulled the scope up the esophagus and out the mouth. The patient tolerated the procedure, and she recovered in endoscopy suite. Anesthesia Type IV sedation by TRIAGE CLINICIAN Estimated Blood Loss Estimated blood loss (mL): scant Specimens/Packing Specimens Removed antral bx body of stomach bx GE jxn bx x 2 LOLY BHATTI DO Jan 16, 2021 09:12
[2021-01-16 09:13] VITALS: BP 157/87
--- NOTE | 2021-01-16 09:13 | Endoscopy Discharge Instruct ---
Endo Procedure/Findings Findings 1.: Gastritis 2.: Hiatal Hernia 3.: Other Findings (Esophagitis) Discharge Instructions - Activity: You might feel a little sleepy until tomorrow. This is due to the medicine you received to relax you. Until tomorrow, you should: NOT drive a car, operate machinery or power tools. NOT drink any alcoholic beverages. NOT make any important decisions or sign importortant papers. Do not return to work until tomorrow, unless otherwise instructed. Resume previous activities tomorrow. Diet: Start by taking liquids. If you tolerate liquids, advance to solid food. 1.: EGD in 1 year Notify Physician - If you experience excessive bleeding, unusual abdominal pain, fever, or chest pain, contact your doctor immediately. LOLY BHATTI DO Jan 16, 2021 09:13
[2021-01-16 09:18] VITALS: BP 138/79
[2021-01-16 09:20] VITALS: BP 148/77
[2021-01-16 09:50] VITALS: BP 118/79
[2021-01-16 09:53] VITALS: BP 118/79
--- NOTE | 2021-01-16 12:36 | Anesthesia-General Post-Op ---
MAC Patient Condition Mental Status/LOC: Same as Preop Cardiovascular: Satisfactory Nausea/Vomiting: Absent Respiratory: Satisfactory Pain: Controlled Complications: Absent Post Op Complications Complications None Follow Up Care/Instructions Patient Instructions None needed. Anesthesiology Discharge Order Discharge Order Patient is doing well, no complaints, stable vital signs, no apparent adverse anesthesia problems. No complications reported per nursing. KOJO MANNING CRNA Jan 16, 2021 12:36
== END 2021-01-16 09:55 | disposition home or self-care (01) ==
LOC: ENDO 07:03
PROVIDERS: ATTEND Surgery
DX: K29.50 Unspecified chronic gastritis without bleeding (principal); K21.00 Gastro-esophageal reflux disease with esophagitis, without bleeding; K44.9 Diaphragmatic hernia without obstruction or gangrene; J45.909 Unspecified asthma, uncomplicated; G40.909 Epilepsy, unspecified, not intractable, without status epilepticus; I10 Essential (primary) hypertension; F41.9 Anxiety disorder, unspecified; F32.9 Major depressive disorder, single episode, unspecified; Z79.899 Other long term (current) drug therapy; Z90.710 Acquired absence of both cervix and uterus; Z90.89 Acquired absence of other organs; Z90.49 Acquired absence of other specified parts of digestive tract; Z79.891 Long term (current) use of opiate analgesic; Z83.3 Family history of diabetes mellitus; Z80.9 Family history of malignant neoplasm, unspecified
CPT/HCPCS: 88305; 88342

== ENCOUNTER 2021-01-21 07:55 | Emergency (ER) | payer SELFPAY ==
[~2021-01-21] VITALS: Ht 167.7 cm; Wt 88.4 kg
[2021-01-21 08:28] LABS: BASOPHILS % (AUTO) 0 % (0-10); EOSINOPHILS % (AUTO) 0 % (0-10); HEMATOCRIT 43 % (35-52); HEMOGLOBIN 13.5 g/dL (11.5-16.0); LYMPHOCYTES # (AUTO) 2.1 10^3/uL (1.0-4.0); LYMPHOCYTES % (AUTO) 25 % (12-44); MEAN CORPUSCULAR HEMOGLOBIN 26 pg (25-34); MEAN CORPUSCULAR HGB CONC 32 g/dL (32-36); MEAN CORPUSCULAR VOLUME 84 fL (80-99); MEAN PLATELET VOLUME 9.9 fL (9.0-12.2); MONOCYTES # (AUTO) 0.6 10^3/uL (0.0-1.0); MONOCYTES % (AUTO) 7 % (0-12); NEUTROPHILS # (AUTO) 5.7 10^3/uL (1.8-7.8); NEUTROPHILS % (AUTO) 68 % (42-75); PLATELET COUNT 414 10^3/uL (130-400); WHITE BLOOD COUNT 8.5 10^3/uL (4.3-11.0)
[2021-01-21] MEDS ORDERED: PROMETHAZINE INJ 25 MG/ML (PHENERGAN) AMP IVP ONE (08:30)
[2021-01-21] MEDS ORDERED: LACTATED RINGERS 1,000 ML IV ONE (08:30)
[2021-01-21] MEDS ORDERED: PANTOPRAZOLE 40 MG (PROTONIX) VIAL IV ONE (08:30)
[2021-01-21] MEDS ORDERED: fentaNYL INJ 100 MCG/2 ML AMP IVP ONE (08:30)
[2021-01-21] MEDS ORDERED: ONDANSETRON 4 MG/2 ML (SDV) Z0FRAN IVP ONE (08:30)
--- NOTE | 2021-01-21 08:32 | ED Abdominal Pain ---
General Stated Complaint: VOMITING,ABD PAIN Source of Information: Patient Exam Limitations: No Limitations NPO Since: 3AM (GARY CEJA STUDENT) History of Present Illness Date Seen by Provider: Jan 21, 2021 Time Seen by Provider: 08:00 Initial Comments Pt presents to ED via POV with complaints of abd pain, intractable nausea and vomiting. She states that it began yesterday and has been taking Zofran 8mg Q6, last dose 3AM, with no improvement. Rates her pain 9/10, constant, to her epigastric/RUQ/LUQ. She states she has had history of similar symptoms for the past year and has been seeing Dr. Bhatti. She states she had a procedure done 4mos ago to her small bowel and an EGD 4 days ago; she is not aware of the results. She has been feeling lightheaded, denies chest pain/SOB. Timing/Duration: 1 Day Severity/Quality: Moderate, Aching, Full Location: Epigastric Radiation: No Radiation Activities at Onset: None Modifying Factors: Worsens With Movement, Worsens With Palpation Associated Symptoms: No Back Pain, No Chest Pain, No Fever/Chills, No Fatigue, No Headache; Nausea/Vomiting; No Shortness of Air (GARY CEJA STUDENT) Allergies and Home Medications Allergies Coded Allergies: morphine (Verified Allergy, Unknown, CAUSES "REBOUND HEADACHES", 12/13/20) PT HAS RECEIVED LORTAB & OXYCODONE IN THE PAST baclofen (Verified Adverse Reaction, Severe, 12/13/20) PATIENT UNAWARE OF REACTION BUT WAS HOSPITALIZED AFTER TAKING MEDICATION AND WAS TOLD IT WAS A REACTION DUE TO THE MEDICATION SHE TOOK. meloxicam (Verified Adverse Reaction, Severe, 12/13/20) PATIENT UNAWARE OF REACTION BUT WAS HOSPITALIZED AFTER TAKING MEDICATION AND WAS TOLD IT WAS A REACTION DUE TO THE MEDICATION SHE TOOK. NSAIDS (Non-Steroidal Anti-Inflamma (Verified Adverse Reaction, Mild, have IBS and avoid NSAIDS, 12/13/20) Home Medications Lisinopril 40 Mg Tablet, 40 MG PO DAILY Prescribed by: SEFERINO MELO on 12/15/20 0910 Pantoprazole Sodium 40 Mg Tablet.dr, 40 MG PO HS, (Reported) LAST FILLED 08-20-2020 #30/30 DAY SUPPLY Promethazine HCl 25 Mg Supp.rect, 25 MG RC Q6H PRN for NAUSEA/VOMITING-2ND LINE Prescribed by: PAULA COLINDRES on 01/21/21 1106 Propranolol HCl 80 Mg Tablet, 80 MG PO TID, (Reported) LAST FILLED 09-02-2020 #90/30 DAY SUPPLY Sucralfate 1 Gm Tablet, 1 GM PO QID, (Reported) LAST FILLED 08-29-2020 #120/30 DAY SUPPLY Sumatriptan Succinate 100 Mg Tablet, 100 MG PO DAILY PRN for MIGRAINE, (Reported) Tizanidine HCl 4 Mg Tablet, 4 MG PO TID PRN for MUSCLE SPASMS, (Reported) Patient Home Medication List Home Medication List Reviewed: Yes (GARY CEJA) Review of Systems Review of Systems Constitutional: No chills, No diaphoresis, No dizziness, No fever EENTM: No Blurred Vision, No Double Vision, No Ear Pain Respiratory: Denies Cough, Denies Shortness of Air Cardiovascular: Denies Chest Pain, Denies Edema; Lightheadedness Gastrointestinal: Abdominal Pain (9/10 epigastric); Denies Constipated, Denies Diarrhea; Nausea, Vomiting (clear, green-tinged) Genitourinary: Denies Burning, Denies Drainage, Denies Frequency Musculoskeletal: No back pain, No joint pain Skin: No change in color, No change in hair/nails Psychiatric/Neurological: Anxiety (GARY CEJA) All Other Systems Reviewed Negative Unless Noted: Yes (GARY CEJA) Past Onmhjka-Odcllm-Fdyabd Hx Patient Social History Tobacco Use?: No Substance use?: No Alcohol Use?: No (GARY CEJA) Immunizations Up To Date Tetanus Booster (TDap): Unknown PED Vaccines UTD: No (GARY CEJA) Seasonal Allergies Seasonal Allergies: No (GARY CEJA) Past Medical History Surgery/Hospitalization HX: TONSILLECTOMY, HYSTERECTOMY, GALLBLADDER Surgeries: Yes Abdominal, Bladder Surgery, Gallbladder, 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, Oophorectomy, Tubal Ligation Respiratory: No Asthma Currently Using CPAP: No Currently Using BIPAP: No Cardiac: No Hypertension, Syncope Neurological: Yes (Tremors) Seizure Disorder 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 Disorders: Yes (HYST 2005--NO PHYSICIAN DOCUMENTATION OF ANY KIND OF CANCER) 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 Disorders: Denies 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 Sexually Transmitted Disease: Yes (HPV) HIV/AIDS: No Genitourinary: No Bladder Infection Gastrointestinal: Yes Gastroesophageal Reflux, Diverticulosis, Esophagitis, Gall Bladder Disease Musculoskeletal: No Chronic Back Pain Endocrine: No HEENT: Yes (POOR DENTITION) Loss of Vision: Denies Hearing Impairment: Denies Cancer: Yes Uterine Psychosocial: Yes (THC USE) Anxiety, Depression Integumentary: No Blood Disorders: No Adverse Reaction/Blood Tranf: No (GARY CEJA STUDENT) Family Medical History Diabetes mellitus 19 FATHER FHx: brain tumor 19 MOTHER HPV infection G8 SISTER No Family History of: AIDS Abdominal aortic aneurysm [place]'s disease Alcoholism Alzheimer's disease Aphasia Arthritis Asthma Cancer of mouth Cardiovascular disease Cataracts Colon cancer Completed stroke Congenital disease Congenital heart disease Coronary thrombosis Cystic fibrosis Deafness or hearing loss Dementia Drug abuse Dysphasia Fibrocystic disease of breast Gastroenteritis Glaucoma Headache disorder Hypercholesterolemia Hypertension Infertility Kidney disease Myocardial infarction Neoplasm Not obtainable due to adoption Osteoporosis Parkinson's disease Prostate cancer Psychosocial problem Respiratory disorder Seizure disorder Severe allergy Thyroid disease Tuberculosis Visual disorder Heart Disease, Hypertension PAST SURGICAL HISTORY: -09/20/20--LAPAROSCOPY FOR INTUSSCEPTION BY DR. BHATTI -08/24/20 --EGD/COLONOSCOPY--DX GASTRITIS/ESOPHAGITIS -CHOLECYSTECTOMY -BILATERAL TUBAL LIGATION -HYSTERECTOMY/BILATERAL SALPINGO-OOPHORECTOMY 2005 -BLADDER SLING/LATER REMOVED -CARDIAC CATH 2012--NORMAL (GARY CEJA [employer] STUDENT) Physical Exam Vital Signs Vital Signs - First Documented 01/21/21 08:05 Temp 36.1 Pulse 108 Resp 22 B/P (MAP) 125/107 (113) Pulse Ox 98 O2 Delivery Room Air (PAULA COLINDRES) Vital Signs Capillary Refill : (GARY CEJA [employer] STUDENT) Height/Weight/BMI Height: 5'6.00" Weight: 203lbs. 6.4oz. 92.036647gf; 34.02 BMI Method:Stated General Appearance: WD/WN, mild distress (heaving nausea/vomiting) HEENT: PERRL/EOMI, pharynx normal (dry mucosa) Neck: non-tender, full range of motion, supple, normal inspection Respiratory: chest non-tender, lungs clear, normal breath sounds, no respiratory distress, no accessory muscle use Cardiovascular: normal peripheral pulses, regular rate, rhythm, no edema, no murmur Peripheral Pulses: 2+ Dorsalis Pedis (R), 2+ Left Dors-Pedis (L), 2+ Radial Pulses (R), 2+ Radial Pulses (L) Gastrointestinal: normal bowel sounds, soft, tenderness (epigastric/upper abd tenderness, nondistended, guarding) Rectal: deferred Extremities: normal range of motion, non-tender, normal inspection, no pedal edema, normal capillary refill Back: normal inspection, no CVA tenderness, no vertebral tenderness Neurologic/Psychiatric: no motor/sensory deficits, alert, normal mood/affect, oriented x 3 Skin: normal color, warm/dry Lymphatic: no adenopathy (GARY CEJA MED STUDENT) Progress/Results/Core Measures Results/Orders Lab Results Laboratory Tests Test 01/21/21 08:15 01/21/21 08:43 01/21/21 09:09 Range/Units White Blood Count 8.5 4.3-11.0 10^3/uL Red Blood Count 5.11 3.80-5.11 10^6/uL Hemoglobin 13.5 11.5-16.0 g/dL Hematocrit 43 35-52 % Mean Corpuscular Volume 84 80-99 fL Mean Corpuscular Hemoglobin 26 25-34 pg Mean Corpuscular Hemoglobin Concent 32 32-36 g/dL Red Cell Distribution Width 15.4 H 10.0-14.5 % Platelet Count 414 H 130-400 10^3/uL Mean Platelet Volume 9.9 9.0-12.2 fL Immature Granulocyte % (Auto) 0 % Neutrophils (%) (Auto) 68 42-75 % Lymphocytes (%) (Auto) 25 12-44 % Monocytes (%) (Auto) 7 0-12 % Eosinophils (%) (Auto) 0 0-10 % Basophils (%) (Auto) 0 0-10 % Neutrophils # (Auto) 5.7 1.8-7.8 10^3/uL Lymphocytes # (Auto) 2.1 1.0-4.0 10^3/uL Monocytes # (Auto) 0.6 0.0-1.0 10^3/uL Eosinophils # (Auto) 0.0 0.0-0.3 10^3/uL Basophils # (Auto) 0.0 0.0-0.1 10^3/uL Immature Granulocyte # (Auto) 0.0 0.0-0.1 10^3/uL Sodium Level 141 135-145 MMOL/L Potassium Level 3.5 L 3.6-5.0 MMOL/L Chloride Level 104 98-107 MMOL/L Carbon Dioxide Level 22 21-32 MMOL/L Anion Gap 15 H 5-14 MMOL/L Blood Urea Nitrogen 9 7-18 MG/DL Creatinine 0.85 0.60-1.30 MG/DL Estimat Glomerular Filtration Rate 73 BUN/Creatinine Ratio 11 Glucose Level 128 H 70-105 MG/DL Calcium Level 10.4 H 8.5-10.1 MG/DL Corrected Calcium 10.2 H 8.5-10.1 MG/DL Total Bilirubin 0.4 0.1-1.0 MG/DL Aspartate Amino Transf (AST/SGOT) 21 5-34 U/L Alanine Aminotransferase (ALT/SGPT) 25 0-55 U/L Alkaline Phosphatase 86 40-136 U/L C-Reactive Protein High Sensitivity 0.72 H 0.00-0.50 MG/DL Total Protein 7.7 6.4-8.2 GM/DL Albumin 4.3 3.2-4.5 GM/DL Lipase 37 8-78 U/L Urine Color YELLOW Urine Clarity CLEAR Urine pH 6.5 5-9 Urine Specific [place] 1.025 H 1.016-1.022 Urine Protein TRACE H NEGATIVE Urine Glucose (UA) NEGATIVE NEGATIVE Urine Ketones 2+ H NEGATIVE Urine Nitrite NEGATIVE NEGATIVE Urine Bilirubin 1+ H NEGATIVE Urine Urobilinogen 1.0 < = 1.0 MG/DL Urine Leukocyte Esterase NEGATIVE NEGATIVE Urine RBC (Auto) NEGATIVE NEGATIVE Urine RBC NONE /HPF Urine WBC 0-2 /HPF Urine Squamous Epithelial Cells 10-25 H /HPF Urine Crystals NONE /LPF Urine Bacteria FEW H /HPF Urine Casts NONE /LPF Urine Mucus LARGE H /LPF Urine Culture Indicated YES (PAULA COLINDRES) My Orders Orders - PAULA COLINDRES Ondansetron Injection (Zofran Injectio (01/21/21 08:30) Promethazine Injection (Phenergan Injec (01/21/21 08:30) Ed Iv/Invasive Line Start (01/21/21 08:21) Lactated Ringers (Lr 1000 Ml Iv Solution (01/21/21 08:30) Cbc With Automated Diff (01/21/21 08:21) Comprehensive Metabolic Panel (01/21/21 08:21) Hs C Reactive Protein (01/21/21 08:21) Lipase (01/21/21 08:21) Ua Culture If Indicated (01/21/21 08:21) Urine Bedside (01/21/21 08:21) Pantoprazole Injection (Protonix Injecti (01/21/21 08:30) Fentanyl Inj (Sublimaze Injection) (01/21/21 08:30) Droperidol Injection (Inapsine Injection (01/21/21 09:00) Diphenhydramine Injection (Benadryl Inje (01/21/21 09:00) Urine Culture (01/21/21 09:09) (PAULA COLINDRES) Medications Given in ED Current Medications Medications Dose Ordered Sig/Judi Route Start Time Stop Time Status Last Admin Dose Admin Diphenhydramine HCl 25 mg ONCE ONCE IVP 01/21/21 09:00 01/21/21 09:01 DC 01/21/21 09:15 25 MG Droperidol 2.5 mg ONCE ONCE IV 01/21/21 09:00 01/21/21 09:01 DC 01/21/21 09:17 2.5 MG Fentanyl Citrate 50 mcg ONCE ONCE IVP 01/21/21 08:30 01/21/21 08:32 DC 01/21/21 08:31 50 MCG Lactated Ringer's 1,000 ml @ 0 mls/hr Q0M ONCE IV 01/21/21 08:30 01/21/21 08:32 DC 01/21/21 08:37 1,000 MLS/HR Ondansetron HCl 12 mg ONCE ONCE IVP 01/21/21 08:30 01/21/21 08:32 DC 01/21/21 08:27 12 MG Pantoprazole 40 mg ONCE ONCE IV 01/21/21 08:30 01/21/21 08:32 DC 01/21/21 08:33 40 MG Promethazine HCl 25 mg ONCE ONCE IVP 01/21/21 08:30 01/21/21 08:32 DC 01/21/21 08:37 25 MG (PAULA COLINDRES) Vital Signs/I&O 01/21/21 01/21/21 08:05 11:14 Temp 36.1 36.1 Pulse 108 99 Resp 22 18 B/P (MAP) 125/107 (113) 151/113 (113) Pulse Ox 98 96 O2 Delivery Room Air Room Air (PAULA COLINDRES) Progress Progress Note : Time: 10:56 Progress Note After a dose of Zofran and Phenergan and Benadryl the patient still retching and pain. Fentanyl was given which did not help her pain. Droperidol was given and she has much more relaxed and her nausea is gone. We have encouraged her to talk to her primary care doctor about getting in with a GI specialist. She says payment has been an issue in the past so [facility] have any programs that might help facilitate a GI consult. We also encourage her to keep her follow-up with Dr. Bhatti. We will give her some suppositories of Phenergan and return precautions. Patient is in agreement with this plan I attest that I saw this patient alongside the medical student and agree with his documented history, physical exam and review of systems except as otherwise noted. (PAULA COLINDRES) Departure Impression Primary Impression: Cyclical vomiting syndrome Additional Impression: Gastritis Qualified Codes: K29.50 - Unspecified chronic gastritis without bleeding Disposition: 01 HOME, SELF-CARE (ERASED) Condition: Improved Departure-Patient Inst. Decision time for Depature: 11:03 (PAULA COLINDRES) Referrals: [facility]/ (PCP) Primary Care Physician AUDREY ELIZABETH (Family) Primary Care Physician Patient Instructions: Nausea and Vomiting, Adult, Gastritis Add. Discharge Instructions: Talk to your primary care doctor and see what they can help you do to facilitate a visit with a GI doctor. Zofran continue to use it as prescribed. If it is not helping you may use 1 rectal suppository of Phenergan every 6 hours as necessary in addition to tablet of Benadryl 25 mg every 6 hours. Scripts Promethazine HCl (Promethazine Suppository) 25 Mg Supp.rect 25 MG RC Q6H PRN for NAUSEA/VOMITING-2ND LINE, #12 SUPP.RECT 0 Refills Prov: PAULA COLINDRES 01/21/21 Copy Copies To 1: ANNE BYRD JOHNNY MED STUDENT Jan 21, 2021 08:32 PAULA COLINDRES Jan 21, 2021 11:03
[2021-01-21 09:00] LABS: ALBUMIN 4.3 GM/DL (3.2-4.5)
[2021-01-21] MEDS ORDERED: diphenhydrAMINE 50 MG/ML INJ (BENADRYL) IVP ONE (09:00)
[2021-01-21] MEDS ORDERED: DROPERIDOL 5 MG/2 ML (INAPSINE) AMP IV ONE (09:00)
[2021-01-21 09:01] LABS: POTASSIUM 3.5 MMOL/L (3.6-5.0)
[2021-01-21 09:02] LABS: CALCIUM 10.4 MG/DL (8.5-10.1)
[2021-01-21 09:03] LABS: TOTAL PROTEIN 7.7 GM/DL (6.4-8.2)
[2021-01-21 09:05] LABS: BILIRUBIN,TOTAL 0.4 MG/DL (0.1-1.0)
[2021-01-21 09:07] LABS: CREATININE SERUM 0.85 MG/DL (0.60-1.30)
[2021-01-21 09:22] LABS: CLARITY,URINE CLEAR; COLOR,URINE YELLOW; GLUCOSE, URINE (UA) NEGATIVE (NEGATIVE); KETONES,URINE 2+ (NEGATIVE); LEUKOCYTE ESTERASE ,URINE NEGATIVE (NEGATIVE); NITRITE,URINE NEGATIVE (NEGATIVE); PH,URINE 6.5 (5-9); PROTEIN,URINE TRACE (NEGATIVE)
[2021-01-21 09:44] LABS: BACTERIA,URINE FEW /HPF; BILIRUBIN,URINE 1+ (NEGATIVE); WBC,URINE 0-2 /HPF
[2021-01-21] MEDS ORDERED: PROM25SU44 RC (11:06)
[2021-01-21 11:14] VITALS: BP 151/113
== END 2021-01-21 11:15 | disposition home or self-care (01) ==
LOC: EDUNIT# 07:55 → ER 07:58
DX: R11.15 Cyclical vomiting syndrome unrelated to migraine (principal); K29.70 Gastritis, unspecified, without bleeding; J45.909 Unspecified asthma, uncomplicated; I10 Essential (primary) hypertension; K21.9 Gastro-esophageal reflux disease without esophagitis
CPT/HCPCS: 36415; 80053; 81000; 83690; 85025; 86141; 87088

== ENCOUNTER 2021-01-27 22:39 | Emergency (ER) | payer SELFPAY ==
[~2021-01-27] VITALS: Ht 162 cm; Wt 81.6 kg
[2021-01-27] MEDS ORDERED: NS IV 1000 ML 1,000 ML IV SCH (23:00)
--- NOTE | 2021-01-27 23:04 | ED Abdominal Pain ---
General Stated Complaint: VOMITING Source of Information: Patient Exam Limitations: No Limitations (FAMILIA ELISE APRN) History of Present Illness Date Seen by Provider: Jan 27, 2021 Time Seen by Provider: 23:03 Initial Comments To ER with recurrent nausea vomiting abdominal pain onset 3 PM today. She is taken Zofran at home without relief. Timing/Duration: 4-6 Hours Severity/Quality: Moderate Location: Generalized Abdomen Radiation: No Radiation Activities at Onset: None Associated Symptoms: Denies Symptoms (FAMILIA ELISE APRN) Allergies and Home Medications Allergies Coded Allergies: morphine (Verified Allergy, Unknown, CAUSES "REBOUND HEADACHES", 12/13/20) PT HAS RECEIVED LORTAB & OXYCODONE IN THE PAST baclofen (Verified Adverse Reaction, Severe, 12/13/20) PATIENT UNAWARE OF REACTION BUT WAS HOSPITALIZED AFTER TAKING MEDICATION AND WAS TOLD IT WAS A REACTION DUE TO THE MEDICATION SHE TOOK. meloxicam (Verified Adverse Reaction, Severe, 12/13/20) PATIENT UNAWARE OF REACTION BUT WAS HOSPITALIZED AFTER TAKING MEDICATION AND WAS TOLD IT WAS A REACTION DUE TO THE MEDICATION SHE TOOK. NSAIDS (Non-Steroidal Anti-Inflamma (Verified Adverse Reaction, Mild, have IBS and avoid NSAIDS, 12/13/20) Home Medications Lisinopril 40 Mg Tablet, 40 MG PO DAILY Prescribed by: SEFERINO MELO on 12/15/20 0910 Pantoprazole Sodium 40 Mg Tablet.dr, 40 MG PO HS, (Reported) LAST FILLED 08-20-2020 #30/30 DAY SUPPLY Promethazine HCl 25 Mg Supp.rect, 25 MG RC Q6H PRN for NAUSEA/VOMITING-2ND LINE Prescribed by: PAULA COLINDRES on 01/21/21 1106 Propranolol HCl 80 Mg Tablet, 80 MG PO TID, (Reported) LAST FILLED 09-02-2020 #90/30 DAY SUPPLY Sucralfate 1 Gm Tablet, 1 GM PO QID, (Reported) LAST FILLED 08-29-2020 #120/30 DAY SUPPLY Sumatriptan Succinate 100 Mg Tablet, 100 MG PO DAILY PRN for MIGRAINE, (Reported) Tizanidine HCl 4 Mg Tablet, 4 MG PO TID PRN for MUSCLE SPASMS, (Reported) Patient Home Medication List Home Medication List Reviewed: Yes (FAMILIA ELISE APRN) Review of Systems Review of Systems Constitutional: see HPI EENTM: No Symptoms Reported Respiratory: No Symptoms Reported Cardiovascular: No Symptoms Reported Gastrointestinal: See HPI, Abdominal Pain, Nausea, Vomiting Genitourinary: No Symptoms Reported Musculoskeletal: no symptoms reported Skin: no symptoms reported Psychiatric/Neurological: No Symptoms Reported Endocrine: No Symptoms Reported Hematologic/Lymphatic: No Symptoms Reported (FAMILIA ELISE APRN) Past Gadhoyi-Cfymhi-Nbzvhw Hx Immunizations Up To Date Tetanus Booster (TDap): Unknown PED Vaccines UTD: No (FAMILIA ELISE APRN) Seasonal Allergies Seasonal Allergies: No (FAMILIA ELISE APRN) Past Medical History Surgery/Hospitalization HX: TONSILLECTOMY, HYSTERECTOMY, GALLBLADDER Surgeries: Yes Abdominal, Bladder Surgery, Gallbladder, 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, Oophorectomy, Tubal Ligation Respiratory: No Asthma Currently Using CPAP: No Currently Using BIPAP: No Cardiac: No Hypertension, Syncope Neurological: Yes (Tremors) Seizure Disorder 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 Disorders: Yes (ST 2005--NO PHYSICIAN DOCUMENTATION OF ANY KIND OF CANCER) 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 Sexually Transmitted Disease: Yes (HPV) HIV/AIDS: No Genitourinary: No Bladder Infection Gastrointestinal: Yes Gastroesophageal Reflux, Diverticulosis, Esophagitis, Gall Bladder Disease Musculoskeletal: No Chronic Back Pain Endocrine: No HEENT: Yes (POOR DENTITION) Loss of Vision: Denies Hearing Impairment: Denies Cancer: Yes Uterine Psychosocial: Yes (THC USE) Anxiety, Depression Integumentary: No Blood Disorders: No Adverse Reaction/Blood Tranf: No (FAMILIA ELISE APRN) Family Medical History Diabetes mellitus 19 FATHER FHx: brain tumor 19 MOTHER HPV infection G8 SISTER No Family History of: AIDS Abdominal aortic aneurysm [place]'s disease Alcoholism Alzheimer's disease Aphasia Arthritis Asthma Cancer of mouth Cardiovascular disease Cataracts Colon cancer Completed stroke Congenital disease Congenital heart disease Coronary thrombosis Cystic fibrosis Deafness or hearing loss Dementia Drug abuse Dysphasia Fibrocystic disease of breast Gastroenteritis Glaucoma Headache disorder Hypercholesterolemia Hypertension Infertility Kidney disease Myocardial infarction Neoplasm Not obtainable due to adoption Osteoporosis Parkinson's disease Prostate cancer Psychosocial problem Respiratory disorder Seizure disorder Severe allergy Thyroid disease Tuberculosis Visual disorder Heart Disease, Hypertension PAST SURGICAL HISTORY: -09/20/20--LAPAROSCOPY FOR INTUSSCEPTION BY DR. BHATTI -08/24/20 --EGD/COLONOSCOPY--DX GASTRITIS/ESOPHAGITIS -CHOLECYSTECTOMY -BILATERAL TUBAL LIGATION -HYSTERECTOMY/BILATERAL SALPINGO-OOPHORECTOMY 2005 -BLADDER SLING/LATER REMOVED -CARDIAC CATH 2012--NORMAL (FAMILIA ELISE APRN) Physical Exam Vital Signs Vital Signs - First Documented 01/27/21 22:54 Temp 36.1 Pulse 97 Resp 18 B/P (MAP) 203/119 (147) Pulse Ox 97 O2 Delivery Room Air (PAULA COLINDRES) Vital Signs Capillary Refill : (FAMILIA ELISE APRN) Height/Weight/BMI Height: 5'6.00" Weight: 203lbs. 6.4oz. 92.947241kk; 31.00 BMI Method:Stated General Appearance: WD/WN, no apparent distress HEENT: PERRL/EOMI, normal ENT inspection Neck: non-tender, full range of motion Respiratory: no respiratory distress, no accessory muscle use Gastrointestinal: normal bowel sounds, soft, tenderness Extremities: normal range of motion, non-tender Neurologic/Psychiatric: alert, normal mood/affect, oriented x 3 Skin: normal color, warm/dry (FAMILIA ELISE APRN) Progress/Results/Core Measures Results/Orders Lab Results Laboratory Tests Test 01/27/21 22:25 Range/Units White Blood Count 10.0 4.3-11.0 10^3/uL Red Blood Count 4.68 3.80-5.11 10^6/uL Hemoglobin 12.3 11.5-16.0 g/dL Hematocrit 40 35-52 % Mean Corpuscular Volume 85 80-99 fL Mean Corpuscular Hemoglobin 26 25-34 pg Mean Corpuscular Hemoglobin Concent 31 L 32-36 g/dL Red Cell Distribution Width 15.4 H 10.0-14.5 % Platelet Count 373 130-400 10^3/uL Mean Platelet Volume 9.7 9.0-12.2 fL Immature Granulocyte % (Auto) 0 % Neutrophils (%) (Auto) 71 42-75 % Lymphocytes (%) (Auto) 21 12-44 % Monocytes (%) (Auto) 7 0-12 % Eosinophils (%) (Auto) 0 0-10 % Basophils (%) (Auto) 0 0-10 % Neutrophils # (Auto) 7.1 1.8-7.8 10^3/uL Lymphocytes # (Auto) 2.1 1.0-4.0 10^3/uL Monocytes # (Auto) 0.7 0.0-1.0 10^3/uL Eosinophils # (Auto) 0.0 0.0-0.3 10^3/uL Basophils # (Auto) 0.0 0.0-0.1 10^3/uL Immature Granulocyte # (Auto) 0.0 0.0-0.1 10^3/uL Sodium Level 145 135-145 MMOL/L Potassium Level 3.0 L 3.6-5.0 MMOL/L Chloride Level 104 98-107 MMOL/L Carbon Dioxide Level 26 21-32 MMOL/L Anion Gap 15 H 5-14 MMOL/L Blood Urea Nitrogen 8 7-18 MG/DL Creatinine 1.04 0.60-1.30 MG/DL Estimat Glomerular Filtration Rate 58 BUN/Creatinine Ratio 8 Glucose Level 124 H 70-105 MG/DL Calcium Level 10.1 8.5-10.1 MG/DL Corrected Calcium 9.8 8.5-10.1 MG/DL Total Bilirubin 0.3 0.1-1.0 MG/DL Aspartate Amino Transf (AST/SGOT) 14 5-34 U/L Alanine Aminotransferase (ALT/SGPT) 21 0-55 U/L Alkaline Phosphatase 74 40-136 U/L C-Reactive Protein High Sensitivity 0.39 0.00-0.50 MG/DL Total Protein 7.6 6.4-8.2 GM/DL Albumin 4.4 3.2-4.5 GM/DL Lipase 53 8-78 U/L Serum Test, Qualitative NEGATIVE NEGATIVE (PAULA COLINDRES) My Orders Orders - PAULA COLINDRES Hs C Reactive Protein (01/27/21 23:31) (PAULA COLINDRES) Medications Given in ED Current Medications Medications Dose Ordered Sig/Judi Route Start Time Stop Time Status Last Admin Dose Admin Diphenhydramine HCl 25 mg ONCE ONCE IVP 01/27/21 23:15 01/27/21 23:16 DC 01/27/21 23:34 25 MG Haloperidol Lactate 3 mg ONCE ONCE IV 01/27/21 23:15 01/27/21 23:16 DC 01/27/21 23:34 3 MG (PAULA COLINDRES) Vital Signs/I&O 01/27/21 22:54 Temp 36.1 Pulse 97 Resp 18 B/P (MAP) 203/119 (147) Pulse Ox 97 O2 Delivery Room Air (PAULA COLINDRES) Progress Progress Note #1: Time: 23:40 Progress Note I agree with the above documented history physical exam per the nurse practition er. Assumed care of the patient at shift change. Because of her marginal QTC of 467 ms we elected to use Haldol instead of droperidol. IV fluids Progress Note #2: Time: 00:01 Progress Note Patient is nausea has improved significantly. We will give another dose of Zofran before she goes as well as some refill. We will give her a little fentanyl for her abdominal pain. Her abdominal pain seems to be from retching. Patient had her appointment with Dr. Bhatti and was told to follow-up in 6 months. She has an appointment with her primary care provider at [facility] to work on seeing a specialist in GI. We explained that we would be able to try and help her abort her symptoms tonight but ultimately she would need to follow-up with a turn machine operator and she agrees with this plan. She is ready to go home. Her fluids are almost done. (PAULA COLINDRES) Initial ECG Impression Date: Jan 27, 2021 Initial ECG Impression Time: 22:59 Initial ECG Rate: 95 Initial ECG Rhythm: Normal Sinus Initial ECG Intervals: QT (467) Initial ECG Impression: Normal, Nonspecific Changes Initial ECG Comparisson: No Previous ECG Available Comment Sinus rhythm with no clinically relevant ST elevation or depression. PVC noted (PAULA COLINDRES) Departure Impression Primary Impression: Cyclical vomiting syndrome Disposition: 01 HOME, SELF-CARE Condition: Stable Departure-Patient Inst. Decision time for Depature: 00:02 (PAULA COLINDRES) Referrals: [facility]/ (PCP) Primary Care Physician AUDREY ELIZABETH (Family) Primary Care Physician Patient Instructions: Nausea and Vomiting, Adult (DC) Add. Discharge Instructions: Drink plenty of fluids. 8 mg Zofran every 4 hours as necessary for nausea and/or vomiting. Follow-up with your primary care doctor to discuss referral to a turn machine operator. Scripts Ondansetron (Ondansetron Odt) 8 Mg Tab.rapdis 8 MG PO Q4H, #30 TAB 0 Refills Prov: PAULA COLINDRES 01/28/21 Copy Copies To 1: ANNE BYRD PETER J APRN Jan 27, 2021 23:04 PAULA COLINDRES Jan 27, 2021 23:42
[2021-01-27] MEDS ORDERED: HALOPERIDOL 5 MG/ML (HALDOL) VIAL IV ONE (23:15)
[2021-01-27] MEDS ORDERED: diphenhydrAMINE 50 MG/ML INJ (BENADRYL) IVP ONE (23:15)
[2021-01-27 23:36] LABS: BASOPHILS % (AUTO) 0 % (0-10); EOSINOPHILS % (AUTO) 0 % (0-10); HEMATOCRIT 40 % (35-52); HEMOGLOBIN 12.3 g/dL (11.5-16.0); LYMPHOCYTES # (AUTO) 2.1 10^3/uL (1.0-4.0); LYMPHOCYTES % (AUTO) 21 % (12-44); MEAN CORPUSCULAR HEMOGLOBIN 26 pg (25-34); MEAN CORPUSCULAR HGB CONC 31 g/dL (32-36); MEAN CORPUSCULAR VOLUME 85 fL (80-99); MEAN PLATELET VOLUME 9.7 fL (9.0-12.2); MONOCYTES # (AUTO) 0.7 10^3/uL (0.0-1.0); MONOCYTES % (AUTO) 7 % (0-12); NEUTROPHILS # (AUTO) 7.1 10^3/uL (1.8-7.8); NEUTROPHILS % (AUTO) 71 % (42-75); PLATELET COUNT 373 10^3/uL (130-400)
[2021-01-27 23:46] LABS: ALBUMIN 4.4 GM/DL (3.2-4.5)
[2021-01-27 23:47] LABS: CALCIUM 10.1 MG/DL (8.5-10.1)
[2021-01-27 23:49] LABS: TOTAL PROTEIN 7.6 GM/DL (6.4-8.2)
[2021-01-27 23:51] LABS: BILIRUBIN,TOTAL 0.3 MG/DL (0.1-1.0)
[2021-01-27 23:52] LABS: CREATININE SERUM 1.04 MG/DL (0.60-1.30)
[2021-01-28] MEDS ORDERED: ONDANSETRON 4 MG/2 ML (SDV) Z0FRAN IVP ONE
[2021-01-28] MEDS ORDERED: fentaNYL INJ 100 MCG/2 ML AMP IVP ONE
[2021-01-28] MEDS ORDERED: ONDA8TAB13 PO (00:05)
[2021-01-28 00:38] VITALS: BP 170/93
== END 2021-01-28 00:38 | disposition home or self-care (01) ==
LOC: EDUNIT# 22:39 → ER 22:41
DX: R11.15 Cyclical vomiting syndrome unrelated to migraine (principal); J45.909 Unspecified asthma, uncomplicated; I10 Essential (primary) hypertension; K21.9 Gastro-esophageal reflux disease without esophagitis; Z79.899 Other long term (current) drug therapy
CPT/HCPCS: 36415; 80053; 83690; 84703; 85025; 86141; 93005; 96374; 96375

== ENCOUNTER 2021-02-07 14:46 | Emergency (ER) | payer SELFPAY ==
[~2021-02-07] VITALS: Ht 167 cm; Wt 89.0 kg
[2021-02-07] MEDS ORDERED: diphenhydrAMINE 50 MG/ML INJ (BENADRYL) IVP ONE (15:00)
[2021-02-07] MEDS ORDERED: HALOPERIDOL 5 MG/ML (HALDOL) VIAL IV ONE (15:00)
[2021-02-07] MEDS ORDERED: LACTATED RINGERS 1,000 ML IV SCH (15:00)
--- NOTE | 2021-02-07 15:02 | ED Integumentary General ---
General Stated Complaint: N/V Source: patient Exam Limitations: no limitations History of Present Illness Date Seen by Provider: Feb 07, 2021 Time Seen by Provider: 15:01 Initial Comments To ER by private vehicle with recurrent nausea vomiting abdominal pain onset this morning. History of cyclic vomiting syndrome. Timing/Duration: this morning Severity: moderate Allergies and Home Medications Allergies Coded Allergies: morphine (Verified Allergy, Unknown, CAUSES "REBOUND HEADACHES", 12/13/20) PT HAS RECEIVED LORTAB & OXYCODONE IN THE PAST baclofen (Verified Adverse Reaction, Severe, 12/13/20) PATIENT UNAWARE OF REACTION BUT WAS HOSPITALIZED AFTER TAKING MEDICATION AND WAS TOLD IT WAS A REACTION DUE TO THE MEDICATION SHE TOOK. meloxicam (Verified Adverse Reaction, Severe, 12/13/20) PATIENT UNAWARE OF REACTION BUT WAS HOSPITALIZED AFTER TAKING MEDICATION AND WAS TOLD IT WAS A REACTION DUE TO THE MEDICATION SHE TOOK. NSAIDS (Non-Steroidal Anti-Inflamma (Verified Adverse Reaction, Mild, have IBS and avoid NSAIDS, 12/13/20) Patient Home Medication List Home Medication List Reviewed: Yes Lisinopril (Lisinopril) 40 Mg Tablet, 40 MG PO DAILY Prescribed by: SEFERINO MELO on 12/15/20 0910 Ondansetron (Ondansetron Odt) 8 Mg Tab.rapdis, 8 MG PO Q4H Prescribed by: PAULA COLINDRES on 01/28/21 0005 Pantoprazole Sodium (Pantoprazole Sodium) 40 Mg Tablet.dr, 40 MG PO HS, (Reported) Entered as Reported by: YOEL GEORGES on 09/19/20 1353 Promethazine HCl (Promethazine Suppository) 25 Mg Supp.rect, 25 MG RC Q6H PRN for NAUSEA/VOMITING-2ND LINE Prescribed by: PAULA COLINDRES on 01/21/21 1106 Propranolol HCl (Propranolol HCl) 80 Mg Tablet, 80 MG PO TID, (Reported) Entered as Reported by: ZAIRA ARCHER on 08/25/20 0943 Sucralfate (Sucralfate) 1 Gm Tablet, 1 GM PO QID, (Reported) Entered as Reported by: YOEL GEORGES on 09/19/20 1353 Sumatriptan Succinate (Sumatriptan Succinate) 100 Mg Tablet, 100 MG PO DAILY PRN for MIGRAINE, (Reported) Entered as Reported by: ZAIRA ARCHER on 08/25/20942 Tizanidine HCl (Tizanidine HCl) 4 Mg Tablet, 4 MG PO TID PRN for MUSCLE SPASMS, (Reported) Entered as Reported by: ZAIRA ARCHER on 08/25/20942 Review of Systems Review of Systems Constitutional: see HPI EENTM: see HPI Respiratory: no symptoms reported Cardiovascular: no symptoms reported Genitourinary: no symptoms reported Musculoskeletal: no symptoms reported Skin: no symptoms reported Psychiatric/Neurological: No Symptoms Reported Endocrine: No Symptoms Reported Past Ourrypd-Imuxdb-Acoxnu Hx Immunizations Up To Date Tetanus Booster (TDap): Unknown PED Vaccines UTD: No Seasonal Allergies Seasonal Allergies: No Past Medical History Surgery/Hospitalization HX: TONSILLECTOMY, HYSTERECTOMY, GALLBLADDER Surgeries: Yes Abdominal, Bladder Surgery, Gallbladder, 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, Oophorectomy, Tubal Ligation Respiratory: No Asthma Currently Using CPAP: No Currently Using BIPAP: No Cardiac: No Hypertension, Syncope Neurological: Yes (Tremors) Seizure Disorder 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 Disorders: Yes (HYST 2005--NO PHYSICIAN DOCUMENTATION OF ANY KIND OF CANCER) 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 Sexually Transmitted Disease: Yes (HPV) HIV/AIDS: No Genitourinary: No Bladder Infection Gastrointestinal: Yes Gastroesophageal Reflux, Diverticulosis, Esophagitis, Gall Bladder Disease Musculoskeletal: No Chronic Back Pain Endocrine: No HEENT: Yes (POOR DENTITION) Loss of Vision: Denies Hearing Impairment: Denies Cancer: Yes Uterine Psychosocial: Yes (THC USE) Anxiety, Depression Integumentary: No Blood Disorders: No Adverse Reaction/Blood Tranf: No Family Medical History Diabetes mellitus 19 FATHER FHx: brain tumor 19 MOTHER HPV infection G8 SISTER No Family History of: AIDS Abdominal aortic aneurysm Madi's disease Alcoholism Alzheimer's disease Aphasia Arthritis Asthma Cancer of mouth Cardiovascular disease Cataracts Colon cancer Completed stroke Congenital disease Congenital heart disease Coronary thrombosis Cystic fibrosis Deafness or hearing loss Dementia Drug abuse Dysphasia Fibrocystic disease of breast Gastroenteritis Glaucoma Headache disorder Hypercholesterolemia Hypertension Infertility Kidney disease Myocardial infarction Neoplasm Not obtainable due to adoption Osteoporosis Parkinson's disease Prostate cancer Psychosocial problem Respiratory disorder Seizure disorder Severe allergy Thyroid disease Tuberculosis Visual disorder Heart Disease, Hypertension PAST SURGICAL HISTORY: -09/20/20--LAPAROSCOPY FOR INTUSSCEPTION BY DR. BHATTI -08/24/20 --EGD/COLONOSCOPY--DX GASTRITIS/ESOPHAGITIS -CHOLECYSTECTOMY -BILATERAL TUBAL LIGATION -HYSTERECTOMY/BILATERAL SALPINGO-OOPHORECTOMY 2005 -BLADDER SLING/LATER REMOVED -CARDIAC CATH 2012--NORMAL Physical Exam Vital Signs Vital Signs - First Documented 02/07/21 14:50 Temp 36.3 Pulse 100 Resp 16 B/P (MAP) 156/116 (129) Pulse Ox 99 O2 Delivery Room Air Capillary Refill : General Appearance: WD/WN, no apparent distress HEENT: PERRL/EOMI, normal ENT inspection Cardiovascular: no murmur, tachycardia Respiratory: no respiratory distress, no accessory muscle use Neurologic/Psychiatric: alert, normal mood/affect, oriented x 3 Skin: normal color, warm/dry Progress/Results/Core Measures Results/Orders Lab Results Laboratory Tests Test 02/07/21 14:55 Range/Units White Blood Count 10.6 4.3-11.0 10^3/uL Red Blood Count 5.59 H 3.80-5.11 10^6/uL Hemoglobin 14.7 11.5-16.0 g/dL Hematocrit 45 35-52 % Mean Corpuscular Volume 81 80-99 fL Mean Corpuscular Hemoglobin 26 25-34 pg Mean Corpuscular Hemoglobin Concent 33 32-36 g/dL Red Cell Distribution Width 14.7 H 10.0-14.5 % Platelet Count 577 H 130-400 10^3/uL Mean Platelet Volume 9.9 9.0-12.2 fL Immature Granulocyte % (Auto) 0 % Neutrophils (%) (Auto) 71 42-75 % Lymphocytes (%) (Auto) 22 12-44 % Monocytes (%) (Auto) 7 0-12 % Eosinophils (%) (Auto) 0 0-10 % Basophils (%) (Auto) 0 0-10 % Neutrophils # (Auto) 7.5 1.8-7.8 10^3/uL Lymphocytes # (Auto) 2.3 1.0-4.0 10^3/uL Monocytes # (Auto) 0.8 0.0-1.0 10^3/uL Eosinophils # (Auto) 0.0 0.0-0.3 10^3/uL Basophils # (Auto) 0.0 0.0-0.1 10^3/uL Immature Granulocyte # (Auto) 0.0 0.0-0.1 10^3/uL Sodium Level 136 135-145 MMOL/L Potassium Level 2.5 *L 3.6-5.0 MMOL/L Chloride Level 92 L 98-107 MMOL/L Carbon Dioxide Level 28 21-32 MMOL/L Anion Gap 16 H 5-14 MMOL/L Blood Urea Nitrogen 8 7-18 MG/DL Creatinine 0.94 0.60-1.30 MG/DL Estimat Glomerular Filtration Rate 65 BUN/Creatinine Ratio 9 Glucose Level 168 H 70-105 MG/DL Calcium Level 11.1 H 8.5-10.1 MG/DL Corrected Calcium 8.5-10.1 MG/DL Magnesium Level 2.0 1.6-2.4 MG/DL Total Bilirubin 0.5 0.1-1.0 MG/DL Aspartate Amino Transf (AST/SGOT) 44 H 5-34 U/L Alanine Aminotransferase (ALT/SGPT) 43 0-55 U/L Alkaline Phosphatase 97 40-136 U/L Total Protein 8.5 H 6.4-8.2 GM/DL Albumin 4.6 H 3.2-4.5 GM/DL My Orders Orders - FAMILIA ELISE APRN Cbc With Automated Diff (02/07/21 14:49) Comprehensive Metabolic Panel (02/07/21 14:49) Ua Culture If Indicated (02/07/21 14:49) Ed Iv/Invasive Line Start (02/07/21 14:49) Lactated Ringers (Lr 1000 Ml Iv Solution (02/07/21 15:00) Haloperidol Injection (Haldol Injectio (02/07/21 15:00) Diphenhydramine Injection (Benadryl Inje (02/07/21 15:00) Acute Abd Series (02/07/21 15:02) Magnesium (02/07/21 15:26) Potassium Cl 10meq/50ml Ivpb (Kcl 10 Meq (02/07/21 15:30) Potassium Chloride (Tablet) (K Dur Table (02/07/21 15:30) Ns Iv 500 Ml (Sodium Chloride 0.9%) (02/07/21 15:30) Medications Given in ED Current Medications Medications Dose Ordered Sig/Judi Route Start Time Stop Time Status Last Admin Dose Admin Diphenhydramine HCl 25 mg ONCE ONCE IVP 02/07/21 15:00 02/07/21 15:01 DC 02/07/21 15:08 25 MG Haloperidol Lactate 5 mg ONCE ONCE IV 02/07/21 15:00 02/07/21 15:01 DC 02/07/21 15:12 5 MG Potassium Chloride 40 meq ONCE ONCE PO 02/07/21 15:30 02/07/21 15:31 DC 02/07/21 15:37 40 MEQ Vital Signs/I&O 02/07/21 14:50 Temp 36.3 Pulse 100 Resp 16 B/P (MAP) 156/116 (129) Pulse Ox 99 O2 Delivery Room Air Departure Impression Primary Impression: Chronic abdominal pain Additional Impression: Chronic nausea and vomiting Disposition: HOME, SELF-CARE Condition: Stable Departure-Patient Inst. Decision time for Depature: 15:02 Referrals: [facility] (PCP) Primary Care Physician AUDREY ELIZABETH (Family) Primary Care Physician Patient Instructions: Nausea and Vomiting, Adult ED Scripts Potassium Chloride (Potassium Chloride) 20 Meq Packet 40 MEQ PO DAILY, #8 PACKET Prov: FAMILIA ELISE APRN 02/07/21 Promethazine HCl (Promethazine Tablet) 25 Mg Tablet 25 MG PO Q6H PRN for NAUSEA/VOMITING, #14 TAB Prov: FAMILIA ELISE STEM MAKER 02/07/21 FAMILIA ELISE APRN Feb 07, 2021 15:02
[2021-02-07 15:09] LABS: BASOPHILS % (AUTO) 0 % (0-10); EOSINOPHILS % (AUTO) 0 % (0-10); HEMATOCRIT 45 % (35-52); HEMOGLOBIN 14.7 g/dL (11.5-16.0); LYMPHOCYTES # (AUTO) 2.3 10^3/uL (1.0-4.0); LYMPHOCYTES % (AUTO) 22 % (12-44); MEAN CORPUSCULAR HEMOGLOBIN 26 pg (25-34); MEAN CORPUSCULAR HGB CONC 33 g/dL (32-36); MEAN CORPUSCULAR VOLUME 81 fL (80-99); MEAN PLATELET VOLUME 9.9 fL (9.0-12.2); MONOCYTES # (AUTO) 0.8 10^3/uL (0.0-1.0); MONOCYTES % (AUTO) 7 % (0-12); NEUTROPHILS # (AUTO) 7.5 10^3/uL (1.8-7.8); NEUTROPHILS % (AUTO) 71 % (42-75); PLATELET COUNT 577 10^3/uL (130-400); WHITE BLOOD COUNT 10.6 10^3/uL (4.3-11.0)
[2021-02-07 15:12] LABS: ALBUMIN 4.6 GM/DL (3.2-4.5); CHLORIDE 92 MMOL/L (98-107); SODIUM 136 MMOL/L (135-145)
[2021-02-07 15:13] LABS: CALCIUM 11.1 MG/DL (8.5-10.1)
[2021-02-07 15:15] LABS: GLUCOSE 168 MG/DL (70-105); TOTAL PROTEIN 8.5 GM/DL (6.4-8.2)
[2021-02-07 15:16] LABS: CARBON DIOXIDE 28 MMOL/L (21-32)
[2021-02-07 15:17] LABS: BILIRUBIN,TOTAL 0.5 MG/DL (0.1-1.0)
[2021-02-07 15:18] LABS: ALKALINE PHOSPHATASE 97 U/L (40-136)
[2021-02-07 15:19] LABS: CREATININE SERUM 0.94 MG/DL (0.60-1.30); GFR ESTIMATED 65
[2021-02-07 15:20] LABS: BUN/CREATININE RATIO 9
[2021-02-07 15:21] LABS: ALANINE AMINOTRANSFERASE 43 U/L (0-55)
[2021-02-07 15:25] LABS: POTASSIUM 2.5 MMOL/L (3.6-5.0)
[2021-02-07] MEDS ORDERED: NS IV 500 ML 500 ML IV SCH (15:30)
[2021-02-07] MEDS ORDERED: KCL 20 MEQ TAB (K-DUR) PO ONE (15:30)
[2021-02-07] MEDS: POTASSIUM CL 10MEQ/50ML IVPB 50 ML IV SCH ×2 (15:38→16:35)
--- NOTE | 2021-02-07 15:49 | Diagnostic Imaging Report ---
INDICATION: Nausea and vomiting. TIME OF EXAM: 03:26 p.m. FINDINGS: Heart size is normal. Lungs are clear. No infiltrates are seen. There is no effusion. There are surgical clips in the gallbladder fossa. Bowel gas pattern appears to be nonobstructed. No pathologic calcifications are seen. IMPRESSION: No acute abnormality is detected. Dictated by: Dictated on workstation # [id number]
[2021-02-07] MEDS ORDERED: POTA20PA28 PO (17:34)
[2021-02-07] MEDS ORDERED: PROM25TA14 PO (17:34)
[2021-02-07 17:37] VITALS: BP 111/88
== END 2021-02-07 17:37 | disposition home or self-care (01) ==
LOC: EDUNIT# 14:46 → ER 14:48
DX: G89.29 Other chronic pain (principal); R10.9 Unspecified abdominal pain; R11.2 Nausea with vomiting, unspecified; J45.909 Unspecified asthma, uncomplicated; I10 Essential (primary) hypertension; K21.9 Gastro-esophageal reflux disease without esophagitis; Z79.899 Other long term (current) drug therapy
CPT/HCPCS: 36415; 74022; 80053; 83735; 85025

== ENCOUNTER 2021-02-15 15:16 | Emergency (ER) | payer SELFPAY ==
[~2021-02-15] VITALS: Ht 167.7 cm; Wt 86.2 kg
[~2021-02-15 15:16] MED LIST changes: +POTA20PA28 PO
--- NOTE | 2021-02-15 16:25 | ED General ---
General Stated Complaint: VOMITING Source of Information: Patient Exam Limitations: No Limitations History of Present Illness Date Seen by Provider: Feb 15, 2021 Time Seen by Provider: 16:25 Initial Comments To ER with c/o ongoing diffuse abdoimnial pain and vomiting. Timing/Duration: Other Severity: Moderate Associated Systoms: Nausea/Vomiting Allergies and Home Medications Allergies Coded Allergies: morphine (Verified Allergy, Unknown, CAUSES "REBOUND HEADACHES", 12/13/20) PT HAS RECEIVED LORTAB & OXYCODONE IN THE PAST baclofen (Verified Adverse Reaction, Severe, 12/13/20) PATIENT UNAWARE OF REACTION BUT WAS HOSPITALIZED AFTER TAKING MEDICATION AND WAS TOLD IT WAS A REACTION DUE TO THE MEDICATION SHE TOOK. meloxicam (Verified Adverse Reaction, Severe, 12/13/20) PATIENT UNAWARE OF REACTION BUT WAS HOSPITALIZED AFTER TAKING MEDICATION AND WAS TOLD IT WAS A REACTION DUE TO THE MEDICATION SHE TOOK. NSAIDS (Non-Steroidal Anti-Inflamma (Verified Adverse Reaction, Mild, have IBS and avoid NSAIDS, 12/13/20) Patient Home Medication List Home Medication List Reviewed: Yes Lisinopril (Lisinopril) 40 Mg Tablet, 40 MG PO DAILY Prescribed by: SEFERINO MELO on 12/15/20 0910 Ondansetron (Ondansetron Odt) 8 Mg Tab.rapdis, 8 MG PO Q4H Prescribed by: PAULA COLINDRES on 01/28/21 0005 Pantoprazole Sodium (Pantoprazole Sodium) 40 Mg Tablet.dr, 40 MG PO HS, (Report ed) Entered as Reported by: YOEL GEORGES on 09/19/20 1353 Potassium Chloride (Potassium Chloride) 20 Meq Packet, 40 MEQ PO DAILY Prescribed by: FAMILIA ELISE on 02/07/21 1734 Promethazine HCl (Promethazine Suppository) 25 Mg Supp.rect, 25 MG RC Q6H PRN for NAUSEA/VOMITING-2ND LINE Prescribed by: PAULA COLINDRES on 01/21/21 1106 Promethazine HCl (Promethazine Tablet) 25 Mg Tablet, 25 MG PO Q6H PRN for NAUSEA/VOMITING Prescribed by: FAMILIA ELISE on 02/07/21 1734 Propranolol HCl (Propranolol HCl) 80 Mg Tablet, 80 MG PO TID, (Reported) Entered as Reported by: ZAIRA ARCHER on 08/25/20 0943 Sucralfate (Sucralfate) 1 Gm Tablet, 1 GM PO QID, (Reported) Entered as Reported by: YOEL GEORGES on 09/19/20 1353 Sumatriptan Succinate (Sumatriptan Succinate) 100 Mg Tablet, 100 MG PO DAILY PRN for MIGRAINE, (Reported) Entered as Reported by: ZAIRA ARCHER on 08/25/20 0943 Tizanidine HCl (Tizanidine HCl) 4 Mg Tablet, 4 MG PO TID PRN for MUSCLE SPASMS, (Reported) Entered as Reported by: ZAIRA ARCHER on 08/25/20 0943 Review of Systems Review of Systems Constitutional: see HPI EENTM: see HPI Respiratory: no symptoms reported Cardiovascular: no symptoms reported Gastrointestinal: abdominal pain, nausea, vomiting Genitourinary: no symptoms reported Musculoskeletal: no symptoms reported Skin: no symptoms reported Psychiatric/Neurological: No Symptoms Reported Past Baqxorv-Lzctmh-Tjhuht Hx Immunizations Up To Date Tetanus Booster (TDap): Unknown PED Vaccines UTD: No Seasonal Allergies Seasonal Allergies: No Past Medical History Surgery/Hospitalization HX: TONSILLECTOMY, HYSTERECTOMY, GALLBLADDER Surgeries: Yes Abdominal, Bladder Surgery, Gallbladder, 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, Oophorectomy, Tubal Ligation Respiratory: No Asthma Currently Using CPAP: No Currently Using BIPAP: No Cardiac: No Hypertension, Syncope Neurological: Yes (Tremors) Seizure Disorder 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 Disorders: Yes (HYST 2005--NO PHYSICIAN DOCUMENTATION OF ANY KIND OF CANCER) 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 Sexually Transmitted Disease: Yes (HPV) HIV/AIDS: No Genitourinary: No Bladder Infection Gastrointestinal: Yes Gastroesophageal Reflux, Diverticulosis, Esophagitis, Gall Bladder Disease Musculoskeletal: No Chronic Back Pain Endocrine: No HEENT: Yes (POOR DENTITION) Loss of Vision: Denies Hearing Impairment: Denies Cancer: Yes Uterine Psychosocial: Yes (THC USE) Anxiety, Depression Integumentary: No Blood Disorders: No Adverse Reaction/Blood Tranf: No Family Medical History Diabetes mellitus 19 FATHER FHx: brain tumor 19 MOTHER HPV infection G8 SISTER No Family History of: AIDS Abdominal aortic aneurysm [place]'s disease Alcoholism Alzheimer's disease Aphasia Arthritis Asthma Cancer of mouth Cardiovascular disease Cataracts Colon cancer Completed stroke Congenital disease Congenital heart disease Coronary thrombosis Cystic fibrosis Deafness or hearing loss Dementia Drug abuse Dysphasia Fibrocystic disease of breast Gastroenteritis Glaucoma Headache disorder Hypercholesterolemia Hypertension Infertility Kidney disease Myocardial infarction Neoplasm Not obtainable due to adoption Osteoporosis Parkinson's disease Prostate cancer Psychosocial problem Respiratory disorder Seizure disorder Severe allergy Thyroid disease Tuberculosis Visual disorder Heart Disease, Hypertension PAST SURGICAL HISTORY: -09/20/20--LAPAROSCOPY FOR INTUSSCEPTION BY DR. BHATTI -08/24/20 --EGD/COLONOSCOPY--DX GASTRITIS/ESOPHAGITIS -CHOLECYSTECTOMY -BILATERAL TUBAL LIGATION -HYSTERECTOMY/BILATERAL SALPINGO-OOPHORECTOMY 2005 -BLADDER SLING/LATER REMOVED -CARDIAC CATH 2012--NORMAL Physical Exam Vital Signs Capillary Refill : Height, Weight, BMI Height: 5'6.00" Weight: 203lbs. 6.4oz. 92.466656lr; 31.00 BMI Method:Stated General Appearance: No Apparent Distress, WD/WN Eyes: Bilateral Eye Normal Inspection, Bilateral Eye PERRL, Bilateral Eye EOMI Respiratory: Normal Breath Sounds, No Accessory Muscle Use, No Respiratory Distress Cardiovascular: Regular Rate, Rhythm, Normal Peripheral Pulses Gastrointestinal: Normal Bowel Sounds, Soft, Tenderness Extremity: Normal Capillary Refill, Normal Inspection Neurologic/Psychiatric: Alert, Oriented x3 Skin: Normal Color, Warm/Dry Progress/Results/Core Measures Suspected Sepsis SIRS Temperature: Pulse: Respiratory Rate: Laboratory Tests 02/15/21 17:00: White Blood Count 9.1 Blood Pressure / Mean: Laboratory Tests 02/15/21 17:00: Creatinine 0.87, Platelet Count 410H, Total Bilirubin 0.6 Results/Orders Lab Results Laboratory Tests Test 02/15/21 17:00 Range/Units White Blood Count 9.1 4.3-11.0 10^3/uL Red Blood Count 4.98 3.80-5.11 10^6/uL Hemoglobin 13.0 11.5-16.0 g/dL Hematocrit 41 35-52 % Mean Corpuscular Volume 83 80-99 fL Mean Corpuscular Hemoglobin 26 25-34 pg Mean Corpuscular Hemoglobin Concent 31 L 32-36 g/dL Red Cell Distribution Width 15.1 H 10.0-14.5 % Platelet Count 410 H 130-400 10^3/uL Mean Platelet Volume 9.5 9.0-12.2 fL Immature Granulocyte % (Auto) 0 % Neutrophils (%) (Auto) 74 42-75 % Lymphocytes (%) (Auto) 17 12-44 % Monocytes (%) (Auto) 8 0-12 % Eosinophils (%) (Auto) 0 0-10 % Basophils (%) (Auto) 0 0-10 % Neutrophils # (Auto) 6.8 1.8-7.8 10^3/uL Lymphocytes # (Auto) 1.6 1.0-4.0 10^3/uL Monocytes # (Auto) 0.8 0.0-1.0 10^3/uL Eosinophils # (Auto) 0.0 0.0-0.3 10^3/uL Basophils # (Auto) 0.0 0.0-0.1 10^3/uL Immature Granulocyte # (Auto) 0.0 0.0-0.1 10^3/uL Sodium Level 144 135-145 MMOL/L Potassium Level 3.0 L 3.6-5.0 MMOL/L Chloride Level 99 98-107 MMOL/L Carbon Dioxide Level 32 21-32 MMOL/L Anion Gap 13 5-14 MMOL/L Blood Urea Nitrogen 8 7-18 MG/DL Creatinine 0.87 0.60-1.30 MG/DL Estimat Glomerular Filtration Rate 71 BUN/Creatinine Ratio 9 Glucose Level 111 H 70-105 MG/DL Calcium Level 10.7 H 8.5-10.1 MG/DL Corrected Calcium 10.4 H 8.5-10.1 MG/DL Magnesium Level 2.0 1.6-2.4 MG/DL Total Bilirubin 0.6 0.1-1.0 MG/DL Aspartate Amino Transf (AST/SGOT) 33 5-34 U/L Alanine Aminotransferase (ALT/SGPT) 33 0-55 U/L Alkaline Phosphatase 81 40-136 U/L Total Protein 7.8 6.4-8.2 GM/DL Albumin 4.4 3.2-4.5 GM/DL My Orders Orders - FAMILIA ELISE APRN Cbc With Automated Diff (02/15/21 16:24) Comprehensive Metabolic Panel (02/15/21 16:24) Magnesium (02/15/21 16:24) Haloperidol Injection (Haldol Injectio (02/15/21 16:30) Ns Iv 1000 Ml (Sodium Chloride 0.9%) (02/15/21 16:30) Ct Abdomen/Pelvis Wo (02/15/21 17:13) Lorazepam Injection (Ativan Injection) (02/15/21 17:45) Antacid Suspension (Mylanta Suspension (02/15/21 17:45) Lidocaine 2% Viscous 15 Ml (Xylocaine Vi (02/15/21 17:45) Pantoprazole Injection (Protonix Injecti (02/15/21 17:45) Famotidine Injection (Pepcid Injection) (02/15/21 17:45) Medications Given in ED Current Medications Medications Dose Ordered Sig/Judi Route Start Time Stop Time Status Last Admin Dose Admin Al Hydrox/Mg Hydrox/Simethicone 30 ml ONCE ONCE PO 02/15/21 17:45 02/15/21 17:46 DC 02/15/21 18:01 30 ML Famotidine 20 mg ONCE ONCE IVP 02/15/21 17:45 02/15/21 17:46 DC 02/15/21 18:02 20 MG Haloperidol Lactate 3 mg ONCE ONCE IV 02/15/21 16:30 02/15/21 16:31 DC 02/15/21 17:07 3 MG Lidocaine HCl 15 ml ONCE ONCE PO 02/15/21 17:45 02/15/21 17:46 DC 02/15/21 18:01 15 ML Lorazepam 0.5 mg ONCE PRN IVP 02/15/21 17:45 02/15/21 18:02 0.5 MG Pantoprazole 40 mg ONCE ONCE IV 02/15/21 17:45 02/15/21 17:46 DC 02/15/21 18:01 40 MG Vital Signs/I&O Capillary Refill : Departure Communication (Admissions) NAME: [facility] REC#: [id number] PT STATUS: REG ER : 1975 PHYSICIAN: FAMILIA ELISE APRN ADMIT DATE: 02/15/21/ER Draft Date of Exam:02/15/21 CT ABDOMEN/PELVIS WO CLINICAL INDICATION: Patient with abdominal pain and vomiting. EXAM: Axial CT scan of the abdomen and pelvis performed without IV contrast or enteric contrast. Sagittal and coronal reformatted images were created. Auto Exposure Controls were utilized during the CT exam to meet ALARA standards for radiation dose reduction. COMPARISON: CT scan of the abdomen and pelvis with contrast dated 12/13/2020. FINDINGS: Visualized lung bases are clear. There are small spurs involving the lower thoracic and lumbar spine. The gallbladder is surgically resected, as noted on the prior study as well. The liver, spleen, pancreas, and adrenal glands are unremarkable. There is no gross abnormality in the gallbladder fossa region. There is no hydronephrosis, renal mass, or renal stones. There is no intra-abdominal free air or free fluid. There is no significant lymphadenopathy. The uterus is surgically absent, and is also noted on the prior study. The bladder has a small amount of fluid within it, otherwise unremarkable. The visualized region of the appendix is unremarkable. The intestines are unremarkable. There is no intestinal obstruction. There is a small hiatal hernia. There is wall thickening involving the gastric antrum, which may be related to contraction, but gastric antritis cannot be completely excluded. Otherwise, there is no significant abnormality involving the stomach or small bowel. The extra-abdominal and extrapelvic soft tissue structures are unremarkable. IMPRESSION: 1: There is no CT evidence of acute abdominal or pelvic process. There is no intestinal obstruction. There are no urinary tract stones. The appendix is unremarkable. 2: There is a hiatal hernia. There is wall thickening involving the gastric antrum, which may be related to contraction, but gastric antritis cannot be completely excluded. 3: Cholecystectomy. Dictated on workstation # [id number] Dict: 02/15/21 1732 Trans: 02/15/21 1740 [id number] Interpreted by: LUIZ RAMIREZ MD Electronically signed by: Impression Primary Impression: Chronic abdominal pain Additional Impression: Nausea & vomiting Disposition: 01 HOME, SELF-CARE Condition: Stable Departure-Patient Inst. Decision time for Depature: 18:45 Referrals: [facility] (PCP) Primary Care Physician AUDREY ELIZABETH (Family) Primary Care Physician Patient Instructions: No Instuctions Given Add. Discharge Instructions: It is very important to follow-up with gastrointestinal specialist in regards to your chronic pain. It is unlikely that we will find the other causes of this chronic nausea and vomiting and abdominal pain in the emergency room given your number of visits, the work-up done so far in the emergency room visits. We can help temporarily with pain and nausea control. We cannot prescribe any opiates for this. FAMILIA ELISE FINANCIAL REPORTING SPECIALIST Feb 15, 2021 16:25
[2021-02-15] MEDS ORDERED: NS IV 1000 ML 1,000 ML IV SCH (16:30)
[2021-02-15] MEDS ORDERED: HALOPERIDOL 5 MG/ML (HALDOL) VIAL IV ONE (16:30)
[2021-02-15 17:10] LABS: BASOPHILS % (AUTO) 0 % (0-10); EOSINOPHILS % (AUTO) 0 % (0-10); HEMATOCRIT 41 % (35-52); LYMPHOCYTES # (AUTO) 1.6 10^3/uL (1.0-4.0); LYMPHOCYTES % (AUTO) 17 % (12-44); MEAN CORPUSCULAR HEMOGLOBIN 26 pg (25-34); MEAN CORPUSCULAR HGB CONC 31 g/dL (32-36); MEAN CORPUSCULAR VOLUME 83 fL (80-99); MEAN PLATELET VOLUME 9.5 fL (9.0-12.2); MONOCYTES # (AUTO) 0.8 10^3/uL (0.0-1.0); MONOCYTES % (AUTO) 8 % (0-12); NEUTROPHILS # (AUTO) 6.8 10^3/uL (1.8-7.8); NEUTROPHILS % (AUTO) 74 % (42-75); PLATELET COUNT 410 10^3/uL (130-400); WHITE BLOOD COUNT 9.1 10^3/uL (4.3-11.0)
[2021-02-15 17:16] LABS: ALBUMIN 4.4 GM/DL (3.2-4.5)
[2021-02-15 17:18] LABS: CALCIUM 10.7 MG/DL (8.5-10.1)
[2021-02-15 17:19] LABS: TOTAL PROTEIN 7.8 GM/DL (6.4-8.2)
[2021-02-15 17:21] LABS: BILIRUBIN,TOTAL 0.6 MG/DL (0.1-1.0)
[2021-02-15 17:23] LABS: CREATININE SERUM 0.87 MG/DL (0.60-1.30)
--- NOTE | 2021-02-15 17:40 | Diagnostic Imaging Report ---
CLINICAL INDICATION: Patient with abdominal pain and vomiting. EXAM: Axial CT scan of the abdomen and pelvis performed without IV contrast or enteric contrast. Sagittal and coronal reformatted images were created. Auto Exposure Controls were utilized during the CT exam to meet ALARA standards for radiation dose reduction. COMPARISON: CT scan of the abdomen and pelvis with contrast dated 12/13/2020. FINDINGS: Visualized lung bases are clear. There are small spurs involving the lower thoracic and lumbar spine. The gallbladder is surgically resected, as noted on the prior study as well. The liver, spleen, pancreas, and adrenal glands are unremarkable. There is no gross abnormality in the gallbladder fossa region. There is no hydronephrosis, renal mass, or renal stones. There is no intra-abdominal free air or free fluid. There is no significant lymphadenopathy. The uterus is surgically absent, and is also noted on the prior study. The bladder has a small amount of fluid within it, otherwise unremarkable. The visualized region of the appendix is unremarkable. The intestines are unremarkable. There is no intestinal obstruction. There is a small hiatal hernia. There is wall thickening involving the gastric antrum, which may be related to contraction, but gastric antritis cannot be completely excluded. Otherwise, there is no significant abnormality involving the stomach or small bowel. The extra-abdominal and extrapelvic soft tissue structures are unremarkable. IMPRESSION: 1: There is no CT evidence of acute abdominal or pelvic process. There is no intestinal obstruction. There are no urinary tract stones. The appendix is unremarkable. 2: There is a hiatal hernia. There is wall thickening involving the gastric antrum, which may be related to contraction, but gastric antritis cannot be completely excluded. 3: Cholecystectomy. Dictated by: Dictated on workstation # [id number]
[2021-02-15] MEDS ORDERED: PANTOPRAZOLE 40 MG (PROTONIX) VIAL IV ONE (17:45)
[2021-02-15] MEDS ORDERED: LORazepam INJ 2 MG/ML (ATIVAN) VIAL IVP PRN (17:45)
[2021-02-15] MEDS ORDERED: FAMOTIDINE 20MG/2ML IV (PEPCID) IVP ONE (17:45)
[2021-02-15] MEDS ORDERED: LIDOCAINE 2% VISCOUS 15 ML UDC PO ONE (17:45)
[2021-02-15] MEDS ORDERED: ANTACID SUSP 30 ML UDC (MYLANTA) PO ONE (17:45)
[2021-02-15 18:54] VITALS: BP 145/90
== END 2021-02-15 18:54 | disposition home or self-care (01) ==
LOC: EDUNIT# 15:16 → ER 15:18
DX: R10.84 Generalized abdominal pain (principal); R11.2 Nausea with vomiting, unspecified; J45.909 Unspecified asthma, uncomplicated; I10 Essential (primary) hypertension; K21.9 Gastro-esophageal reflux disease without esophagitis; Z79.899 Other long term (current) drug therapy
CPT/HCPCS: 36415; 74176; 80053; 83735; 85025

== ENCOUNTER 2021-02-27 13:40 | Observation (INO) | payer OTHER ==
[~2021-02-27] VITALS: Ht 167.7 cm; Wt 75.0 kg
[2021-02-27] MEDS ORDERED: ONDANSETRON 4 MG/2 ML (SDV) Z0FRAN IVP ONE (14:30)
[2021-02-27] MEDS ORDERED: HALOPERIDOL 5 MG/ML (HALDOL) VIAL IV ONE ×2 (14:30→15:30)
[2021-02-27] MEDS ORDERED: diphenhydrAMINE 50 MG/ML INJ (BENADRYL) IVP ONE (14:30)
[2021-02-27] MEDS ORDERED: LACTATED RINGERS 1,000 ML IV ONE (14:30)
[2021-02-27] MEDS ORDERED: fentaNYL INJ 100 MCG/2 ML AMP IVP ONE ×2 (14:30→15:30)
[2021-02-27 14:34] LABS: BASOPHILS % (AUTO) 0 % (0-10); EOSINOPHILS % (AUTO) 0 % (0-10); HEMATOCRIT 43 % (35-52); HEMOGLOBIN 13.9 g/dL (11.5-16.0); LYMPHOCYTES # (AUTO) 1.5 10^3/uL (1.0-4.0); LYMPHOCYTES % (AUTO) 19 % (12-44); MEAN CORPUSCULAR HEMOGLOBIN 26 pg (25-34); MEAN CORPUSCULAR HGB CONC 32 g/dL (32-36); MEAN CORPUSCULAR VOLUME 82 fL (80-99); MEAN PLATELET VOLUME 9.5 fL (9.0-12.2); MONOCYTES # (AUTO) 0.5 10^3/uL (0.0-1.0); MONOCYTES % (AUTO) 6 % (0-12); NEUTROPHILS # (AUTO) 5.6 10^3/uL (1.8-7.8); NEUTROPHILS % (AUTO) 74 % (42-75); PLATELET COUNT 468 10^3/uL (130-400); WHITE BLOOD COUNT 7.6 10^3/uL (4.3-11.0)
[2021-02-27 14:55] LABS: ALBUMIN 4.2 GM/DL (3.2-4.5); POTASSIUM 2.8 MMOL/L (3.6-5.0)
[2021-02-27 14:56] LABS: CALCIUM 10.4 MG/DL (8.5-10.1)
[2021-02-27 14:57] LABS: TOTAL PROTEIN 7.7 GM/DL (6.4-8.2)
[2021-02-27 14:59] LABS: BILIRUBIN,TOTAL 0.5 MG/DL (0.1-1.0)
[2021-02-27 15:04] LABS: MAGNESIUM 1.8 MG/DL (1.6-2.4)
[2021-02-27] MEDS ORDERED: NS IV 1000 ML 1,000 ML IV SCH (15:30)
[2021-02-27] MEDS ORDERED: POTASSIUM CL 10MEQ/50ML IVPB 50 ML IV ONE ×2 (15:30)
--- NOTE | 2021-02-27 16:14 | ED Abdominal Pain ---
General Chief Complaint: Abdominal/GI Problems Stated Complaint: N/V Nursing Triage Note: Pt arrival to ER with complaint of Vomiting since this AM. Pt has history of IBS. Denies taking anything for it. Source of Information: Patient Exam Limitations: No Limitations (MARY VITAL MD) History of Present Illness Date Seen by Provider: Feb 27, 2021 Time Seen by Provider: 14:05 Initial Comments This 47-year-old woman presents to the emergency room with complaints of generalized abdominal pain, nausea, and vomiting since last night. She is in distress on arrival. She has a long history of chronic recurrent abdominal pain and vomiting. She has been diagnosed with cyclic vomiting syndrome. Previously this had been associated with marijuana but in recent visits she has not tested positive for marijuana and reports not using marijuana. (MARY VITAL MD) Allergies and Home Medications Allergies Coded Allergies: morphine (Verified Allergy, Unknown, CAUSES "REBOUND HEADACHES", 12/13/20) PT HAS RECEIVED LORTAB & OXYCODONE IN THE PAST baclofen (Verified Adverse Reaction, Severe, 12/13/20) PATIENT UNAWARE OF REACTION BUT WAS HOSPITALIZED AFTER TAKING MEDICATION AND WAS TOLD IT WAS A REACTION DUE TO THE MEDICATION SHE TOOK. meloxicam (Verified Adverse Reaction, Severe, 12/13/20) PATIENT UNAWARE OF REACTION BUT WAS HOSPITALIZED AFTER TAKING MEDICATION AND WAS TOLD IT WAS A REACTION DUE TO THE MEDICATION SHE TOOK. NSAIDS (Non-Steroidal Anti-Inflamma (Verified Adverse Reaction, Mild, have IBS and avoid NSAIDS, 12/13/20) Patient Home Medication List Home Medication List Reviewed: Yes (MARY VITAL MD) Lisinopril (Lisinopril) 40 Mg Tablet, 40 MG PO DAILY Prescribed by: SEFERINO MELO on 12/15/20 0910 Ondansetron (Ondansetron Odt) 8 Mg Tab.rapdis, 8 MG PO Q4H Prescribed by: PAULA FOSTER on 01/28/21 0005 Pantoprazole Sodium (Pantoprazole Sodium) 40 Mg Tablet.dr, 40 MG PO HS, (Reported) Entered as Reported by: YOEL GEORGES on 09/19/20 1353 Potassium Chloride (Potassium Chloride) 20 Meq Packet, 40 MEQ PO DAILY Prescribed by: FAMILIA ELISE on 02/07/21 0704 Promethazine HCl (Promethazine Suppository) 25 Mg Supp.rect, 25 MG RC Q6H PRN for NAUSEA/VOMITING-2ND LINE Prescribed by: PAULA FOSTER on 01/21/21 1106 Promethazine HCl (Promethazine Tablet) 25 Mg Tablet, 25 MG PO Q6H PRN for NAUSEA/VOMITING Prescribed by: FAMILIA ELISE on 02/07/21 1734 Propranolol HCl (Propranolol HCl) 80 Mg Tablet, 80 MG PO TID, (Reported) Entered as Reported by: ZAIRA ARCHER on 08/25/20 09 Sucralfate (Sucralfate) 1 Gm Tablet, 1 GM PO QID, (Reported) Entered as Reported by: YOEL GEORGES on 09/19/20 1353 Sumatriptan Succinate (Sumatriptan Succinate) 100 Mg Tablet, 100 MG PO DAILY PRN for MIGRAINE, (Reported) Entered as Reported by: ZAIRA ARCHER on 08/25/20 09 Tizanidine HCl (Tizanidine HCl) 4 Mg Tablet, 4 MG PO TID PRN for MUSCLE SPASMS, (Reported) Entered as Reported by: ZAIRA ARCHER on 08/25/20 0943 Review of Systems Review of Systems Constitutional: no symptoms reported EENTM: No Symptoms Reported Respiratory: No Symptoms Reported Cardiovascular: No Symptoms Reported Gastrointestinal: See HPI Genitourinary: No Symptoms Reported Musculoskeletal: no symptoms reported Skin: no symptoms reported Psychiatric/Neurological: No Symptoms Reported Endocrine: No Symptoms Reported Hematologic/Lymphatic: No Symptoms Reported (MARY VITAL MD) All Other Systems Reviewed Negative Unless Noted: Yes (PAULA FOSTER) Past Rmrcoth-Wxeofn-Dlqfpg Hx Patient Social History Tobacco Use?: No Use of E-Cig and/or Vaping dev: No Substance use?: No Alcohol Use?: No Pt feels they are or have been: No (MARY VITAL MD) Tobacco Use?: No Substance use?: No Alcohol Use?: No (PAULA FOSTER) Immunizations Up To Date Tetanus Booster (TDap): Unknown PED Vaccines UTD: No (MARY VITAL MD) Seasonal Allergies Seasonal Allergies: No (MARY VITAL MD) Past Medical History Surgery/Hospitalization HX: TONSILLECTOMY, HYSTERECTOMY, GALLBLADDER Surgeries: Yes Abdominal, Bladder Surgery, Gallbladder, 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, Oophorectomy, Tubal Ligation Respiratory: No Asthma Currently Using CPAP: No Currently Using BIPAP: No Cardiac: Yes Hypertension, Syncope Neurological: Yes (Tremors) Seizure Disorder 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 Disorders: Yes (ST 2005--NO PHYSICIAN DOCUMENTATION OF ANY KIND OF CANCER) 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 Disorders: Denies ETL LEAD History: 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 Sexually Transmitted Disease: Yes (HPV) HIV/AIDS: No Genitourinary: No Bladder Infection Gastrointestinal: Yes (History of cyclic vomiting and prior cannabis hyperemesis) Gastroesophageal Reflux, Diverticulosis, Esophagitis, Gall Bladder Disease Musculoskeletal: No Chronic Back Pain Endocrine: No HEENT: Yes (POOR DENTITION) Loss of Vision: Denies Hearing Impairment: Denies Cancer: Yes Uterine Psychosocial: Yes (THC USE) Anxiety, Depression Integumentary: No Blood Disorders: No Adverse Reaction/Blood Tranf: No (MARY VITAL MD) Family Medical History Diabetes mellitus 19 FATHER FHx: brain tumor 19 MOTHER HPV infection G8 SISTER No Family History of: AIDS Abdominal aortic aneurysm [place]'s disease Alcoholism Alzheimer's disease Aphasia Arthritis Asthma Cancer of mouth Cardiovascular disease Cataracts Colon cancer Completed stroke Congenital disease Congenital heart disease Coronary thrombosis Cystic fibrosis Deafness or hearing loss Dementia Drug abuse Dysphasia Fibrocystic disease of breast Gastroenteritis Glaucoma Headache disorder Hypercholesterolemia Hypertension Infertility Kidney disease Myocardial infarction Neoplasm Not obtainable due to adoption Osteoporosis Parkinson's disease Prostate cancer Psychosocial problem Respiratory disorder Seizure disorder Severe allergy Thyroid disease Tuberculosis Visual disorder Heart Disease, Hypertension PAST SURGICAL HISTORY: -09/20/20--LAPAROSCOPY FOR INTUSSCEPTION BY DR. BHATTI -08/24/20 --EGD/COLONOSCOPY--DX GASTRITIS/ESOPHAGITIS -CHOLECYSTECTOMY -BILATERAL TUBAL LIGATION -HYSTERECTOMY/BILATERAL SALPINGO-OOPHORECTOMY 2005 -BLADDER SLING/LATER REMOVED -CARDIAC CATH 2012--NORMAL (MARY VITAL MD) Physical Exam Vital Signs Vital Signs - First Documented 02/27/21 13:53 Temp 36.8 Pulse 121 Resp 20 B/P (MAP) 206/140 (162) Pulse Ox 98 O2 Delivery Room Air (PAULA FOSTER) Vital Signs Capillary Refill : Less Than 3 Seconds (MARY VITAL MD) Height/Weight/BMI Height: 5'6.00" Weight: 203lbs. 6.4oz. 92.348130wh; 26.00 BMI Method:Stated General Appearance: WD/WN, moderate distress HEENT: PERRL/EOMI, normal ENT inspection Neck: normal inspection Respiratory: lungs clear, normal breath sounds, no respiratory distress Cardiovascular: no edema, no murmur, tachycardia Gastrointestinal: soft; No distended Extremities: normal inspection, no pedal edema Neurologic/Psychiatric: powder compounder II-XII nml as tested, no motor/sensory deficits, alert, oriented x 3 Skin: normal color, diaphoresis (MARY VITAL MD) Progress/Results/Core Measures Results/Orders Lab Results Laboratory Tests Test 02/27/21 14:25 Range/Units White Blood Count 7.6 4.3-11.0 10^3/uL Red Blood Count 5.28 H 3.80-5.11 10^6/uL Hemoglobin 13.9 11.5-16.0 g/dL Hematocrit 43 35-52 % Mean Corpuscular Volume 82 80-99 fL Mean Corpuscular Hemoglobin 26 25-34 pg Mean Corpuscular Hemoglobin Concent 32 32-36 g/dL Red Cell Distribution Width 15.4 H 10.0-14.5 % Platelet Count 468 H 130-400 10^3/uL Mean Platelet Volume 9.5 9.0-12.2 fL Immature Granulocyte % (Auto) 0 % Neutrophils (%) (Auto) 74 42-75 % Lymphocytes (%) (Auto) 19 12-44 % Monocytes (%) (Auto) 6 0-12 % Eosinophils (%) (Auto) 0 0-10 % Basophils (%) (Auto) 0 0-10 % Neutrophils # (Auto) 5.6 1.8-7.8 10^3/uL Lymphocytes # (Auto) 1.5 1.0-4.0 10^3/uL Monocytes # (Auto) 0.5 0.0-1.0 10^3/uL Eosinophils # (Auto) 0.0 0.0-0.3 10^3/uL Basophils # (Auto) 0.0 0.0-0.1 10^3/uL Immature Granulocyte # (Auto) 0.0 0.0-0.1 10^3/uL Sodium Level 142 135-145 MMOL/L Potassium Level 2.8 L 3.6-5.0 MMOL/L Chloride Level 99 98-107 MMOL/L Carbon Dioxide Level 21 21-32 MMOL/L Anion Gap 22 H 5-14 MMOL/L Blood Urea Nitrogen 5 L 7-18 MG/DL Creatinine 1.00 0.60-1.30 MG/DL Estimat Glomerular Filtration Rate 61 BUN/Creatinine Ratio 5 Glucose Level 192 H 70-105 MG/DL Calcium Level 10.4 H 8.5-10.1 MG/DL Corrected Calcium 10.2 H 8.5-10.1 MG/DL Magnesium Level 1.8 1.6-2.4 MG/DL Total Bilirubin 0.5 0.1-1.0 MG/DL Aspartate Amino Transf (AST/SGOT) 22 5-34 U/L Alanine Aminotransferase (ALT/SGPT) 21 0-55 U/L Alkaline Phosphatase 95 40-136 U/L C-Reactive Protein High Sensitivity 2.87 H 0.00-0.50 MG/DL Total Protein 7.7 6.4-8.2 GM/DL Albumin 4.2 3.2-4.5 GM/DL Lipase 35 8-78 U/L (PAULA FOSTER) My Orders Orders - PAULA FOSTER Pantoprazole Injection (Protonix Injecti (02/27/21 16:30) Hydromorphone Injection (Dilaudid Inject (02/27/21 16:30) Drug Screen Stat (Urine) (02/27/21 16:38) Ct Abdomen/Pelvis W (02/27/21 16:39) Iohexol Injection (Omnipaque 350 Mg/Ml 1 (02/27/21 17:00) Sodium Chloride Flush (Catheter Flush Sy (02/27/21 17:00) Ns (Ivpb) (Sodium Chloride 0.9% Ivpb Bag (02/27/21 17:00) (PAULA FOSTER) Medications Given in ED Current Medications Medications Dose Ordered Sig/Judi Route Start Time Stop Time Status Last Admin Dose Admin Diphenhydramine HCl 25 mg ONCE ONCE IVP 02/27/21 14:30 02/27/21 14:31 DC 02/27/21 14:35 25 MG Fentanyl Citrate 50 mcg ONCE ONCE IVP 02/27/21 14:30 02/27/21 14:31 DC 02/27/21 14:34 50 MCG Fentanyl Citrate 50 mcg ONCE ONCE IVP 02/27/21 15:30 02/27/21 15:31 DC 02/27/21 15:40 50 MCG Haloperidol Lactate 2.5 mg ONCE ONCE IV 02/27/21 14:30 02/27/21 14:31 DC 02/27/21 14:36 2.5 MG Haloperidol Lactate 2.5 mg ONCE ONCE IV 02/27/21 15:30 02/27/21 15:31 DC 02/27/21 15:41 2.5 MG Hydromorphone HCl 0.5 mg ONCE ONCE IV 02/27/21 16:30 02/27/21 16:32 DC 02/27/21 16:46 0.5 MG Iohexol 100 ml ONCE ONCE IV 02/27/21 17:00 02/27/21 17:01 DC 02/27/21 17:11 100 ML Lactated Ringer's 1,000 ml @ 0 mls/hr Q0M ONCE IV 02/27/21 14:30 02/27/21 14:31 DC 02/27/21 14:37 1,000 MLS/HR Ondansetron HCl 8 mg ONCE ONCE IVP 02/27/21 14:30 02/27/21 14:31 DC 02/27/21 14:33 8 MG Pantoprazole 40 mg ONCE ONCE IV 02/27/21 16:30 02/27/21 16:32 DC 02/27/21 16:46 40 MG Potassium Chloride 50 ml @ 50 mls/hr ONCE ONCE IV 02/27/21 15:30 02/27/21 16:29 DC 02/27/21 15:42 50 MLS/HR Potassium Chloride 50 ml @ 50 mls/hr ONCE ONCE IV 02/27/21 15:30 02/27/21 16:29 DC 02/27/21 16:46 50 MLS/HR Sodium Chloride 10 ml NEEDED PRN IV 02/27/21 17:00 02/27/21 17:11 10 ML Sodium Chloride 100 ml ONCE ONCE IV 02/27/21 17:00 02/27/21 17:01 DC 02/27/21 17:11 80 ML (PAULA FOSTER) Vital Signs/I&O 02/27/21 13:53 Temp 36.8 Pulse 121 Resp 20 B/P (MAP) 206/140 (162) Pulse Ox 98 O2 Delivery Room Air (PAULA FOSTER) Blood Pressure Mean: 162 Progress Progress Note : Time: 16:12 Progress Note Patient was seen and examined shortly after arrival. Fentanyl, Haldol, Benadryl, Zofran, and IV fluids were ordered based on prior cocktails that have worked well for her chronic recurrent episodes of abdominal pain and vomiting. These therapies did not provide her lasting relief. An additional fentanyl and Haldol dose were administered. She was also found to have significant hypokalemia and replacement is underway by IV route. Care of this patient is now being transitioned to Dr. Foster. (MARY VITAL MD) Progress Note #1: Progress Note I agree with the above documented history and physical exam. Assumed care of the patient at 1600. Potassium and fluid replacement is underway. Patient is not retching presently however she states she is still nauseated. She states she did not receive any relief from any of the medication she received despite having a more sedate, improved appearance. We will give her half a milligram of Dilaudid since she states she got no pain relief. 40 mg of pantoprazole. Progress Note #2: Time: 18:41 Progress Note Patient's pain is better however she still states she is having intractable nausea. Despite a couple liters of fluids and potassium her heart rate still 120 and her blood pressure significantly elevated. She states she did take her blood pressure medicine this morning but she does not know the name of it. We will give her some labetalol and look into a overnight stay for intractable nausea and vomiting. (PAULA FOSTER) Diagnostic Imaging Diagonstic Imaging: CT Plain Films/CT/US/NM/MRI: abdomen, pelvis Comments [facility], [place] NAME: DORIAN BROWN [facility] REC#: [id number] PT STATUS: REG ER : 1975 PHYSICIAN: PAULA FOSTER MD ADMIT DATE: 02/27/21/ER Draft Date of Exam:02/27/21 CT ABDOMEN/PELVIS W PROCEDURE: CT abdomen and pelvis with contrast. TECHNIQUE: Multiple contiguous axial images were obtained through the abdomen and pelvis after administration of intravenous contrast. Auto Exposure Controls were utilized during the CT exam to meet ALARA standards for radiation dose reduction. All CT scans use one or more of the following dose optimizing techniques: Automated exposure control, MA and/or KvP adjustment based on patient size and exam type or iterative reconstruction. INDICATION: Generalized abdominal pain. COMPARISON: 02/15/2021. FINDINGS: There is a small hiatal hernia. The lung bases are clear. Gallbladder is surgically absent. The solid organs, vascular structures, and small bowel are unremarkable. There is some slight thickening of the proximal colon to the level of the mid transverse colon. This is likely physiologic decompression. Inflammatory bowel disease is not excluded. There is no free air or free fluid. No lymphadenopathy is seen. The uterus is surgically absent. The urinary bladder is normal. Osseous structures are age appropriate. IMPRESSION: 1. Likely physiologic decompression of the proximal colon versus slight inflammatory bowel disease. Please correlate clinically. There is no free air, free fluid, or obstruction. 2. Small hiatal hernia. 3. Surgically absent gallbladder and uterus. 4. Not mentioned above, normal appendix. Dictated on workstation # [id number] Dict: 02/27/21 1715 Trans: 02/27/21 1721 [id number] Interpreted by: ALYSA MURRAY Electronically signed by: Reviewed: Reviewed by Me (PAULA FOSTER) Departure Communication (Admissions) Time/Spoke to Admitting Phy: 19:00 Discussed the case with Dr. Rodrigues and she is okay with observation to the floor (PAULA FOSTER) Impression Primary Impression: Generalized abdominal pain Additional Impressions: Nausea and vomiting Qualified Codes: R11.2 - Nausea with vomiting, unspecified Hypokalemia HTN (hypertension) Qualified Codes: I10 - Essential (primary) hypertension Disposition: ADMITTED INPATIENT Condition: Stable Admissions Decision to Admit Reason: Admit from ER (General) Decision to Admit/Date: Feb 27, 2021 Time/Decision to Admit Time: 18:31 (PAULA FOSTER) Departure-Patient Inst. Referrals: [facility] [place]) Primary Care Physician AUDREY ELIZABETH (Family) Primary Care Physician MARY VITAL MD Feb 27, 2021 16:14 PAULA FOSTER Feb 27, 2021 16:37
[2021-02-27] MEDS ORDERED: HYDROmorphone 2 MG/ML VIAL (DILAUDID) IV ONE (16:30)
[2021-02-27] MEDS ORDERED: PANTOPRAZOLE 40 MG (PROTONIX) VIAL IV ONE (16:30)
[2021-02-27] MEDS ORDERED: IOHEXOL 350 MG/ML 100 ML (OMNIPAQUE 350) VIAL IV ONE (17:00)
[2021-02-27] MEDS ORDERED: NS 100 ML (IVPB) BAG IV ONE (17:00)
[2021-02-27] MEDS ORDERED: CATHETER FLUSH 10 ML SYR IV PRN (17:00)
--- NOTE | 2021-02-27 17:22 | Diagnostic Imaging Report ---
PROCEDURE: CT abdomen and pelvis with contrast. TECHNIQUE: Multiple contiguous axial images were obtained through the abdomen and pelvis after administration of intravenous contrast. Auto Exposure Controls were utilized during the CT exam to meet ALARA standards for radiation dose reduction. All CT scans use one or more of the following dose optimizing techniques: Automated exposure control, MA and/or KvP adjustment based on patient size and exam type or iterative reconstruction. INDICATION: Generalized abdominal pain. COMPARISON: 02/15/2021. FINDINGS: There is a small hiatal hernia. The lung bases are clear. Gallbladder is surgically absent. The solid organs, vascular structures, and small bowel are unremarkable. There is some slight thickening of the proximal colon to the level of the mid transverse colon. This is likely physiologic decompression. Inflammatory bowel disease is not excluded. There is no free air or free fluid. No lymphadenopathy is seen. The uterus is surgically absent. The urinary bladder is normal. Osseous structures are age appropriate. IMPRESSION: 1. Likely physiologic decompression of the proximal colon versus slight inflammatory bowel disease. Please correlate clinically. There is no free air, free fluid, or obstruction. 2. Small hiatal hernia. 3. Surgically absent gallbladder and uterus. 4. Not mentioned above, normal appendix. Dictated by: Dictated on workstation # [id number]
[2021-02-27] MEDS ORDERED: LABETALOL HCL 20 MG/4 ML VIAL IV ONE (19:15)
[2021-02-27 20:26] VITALS: BP 188/117
[2021-02-27] MEDS ORDERED: DROPERIDOL 5 MG/2 ML (INAPSINE) ED ONLY! IV PRN (21:30)
[2021-02-27] MEDS ORDERED: diphenhydrAMINE 50 MG/ML INJ (BENADRYL) IVP PRN (21:30)
[2021-02-27] MEDS: fentaNYL INJ 100 MCG/2 ML AMP IVP PRN (21:38)
[2021-02-27] MEDS: LABETALOL HCL 20 MG/4 ML VIAL IV PRN (21:39)
[2021-02-27] MEDS: LACTATED RINGERS 1,000 ML IV SCH (21:39)
[2021-02-27] MEDS: HYDROmorphone 2 MG/ML VIAL (DILAUDID) IVP PRN (23:42)
[2021-02-28] VITALS (9 sets, daily range): BP systolic 156–182; BP diastolic 81–115
[2021-02-28 00:50] LABS: BACTERIA,URINE NEGATIVE /HPF; BILIRUBIN,URINE NEGATIVE (NEGATIVE); CLARITY,URINE CLEAR; COLOR,URINE YELLOW; GLUCOSE, URINE (UA) NEGATIVE (NEGATIVE); KETONES,URINE TRACE (NEGATIVE); LEUKOCYTE ESTERASE ,URINE NEGATIVE (NEGATIVE); NITRITE,URINE NEGATIVE (NEGATIVE); PROTEIN,URINE NEGATIVE (NEGATIVE)
[2021-02-28 00:57] LABS: AMPHETAMINE SCREEN, URINE NEGATIVE (NEGATIVE); BARBITURATE SCREEN URINE NEGATIVE (NEGATIVE); BENZODIAZEPINES SCREEN URINE NEGATIVE (NEGATIVE); CANNABINOID SCREEN, URINE POSITIVE (NEGATIVE); COCAINE SCREEN URINE NEGATIVE (NEGATIVE); METHADONE STAT NEGATIVE (NEGATIVE); METHAMPHETAMINE SCREEN URINE S NEGATIVE (NEGATIVE); OPIATE SCREEN URINE POSITIVE (NEGATIVE); OXYCODONE STAT NEGATIVE (NEGATIVE); PROPOXYPHENE STAT NEGATIVE (NEGATIVE); TRICYCLIC ANTIDEPRESSANTS SCRE NEGATIVE (NEGATIVE)
[2021-02-28 05:59] LABS: BASOPHILS % (AUTO) 0 % (0-10); EOSINOPHILS # (AUTO) 0.1 10^3/uL (0.0-0.3); EOSINOPHILS % (AUTO) 1 % (0-10); HEMATOCRIT 36 % (35-52); HEMOGLOBIN 11.2 g/dL (11.5-16.0); LYMPHOCYTES % (AUTO) 36 % (12-44); MEAN CORPUSCULAR HEMOGLOBIN 26 pg (25-34); MEAN CORPUSCULAR HGB CONC 31 g/dL (32-36); MEAN CORPUSCULAR VOLUME 84 fL (80-99); MEAN PLATELET VOLUME 9.3 fL (9.0-12.2); MONOCYTES # (AUTO) 0.6 10^3/uL (0.0-1.0); MONOCYTES % (AUTO) 10 % (0-12); NEUTROPHILS # (AUTO) 2.9 10^3/uL (1.8-7.8); NEUTROPHILS % (AUTO) 52 % (42-75); PLATELET COUNT 352 10^3/uL (130-400); WHITE BLOOD COUNT 5.5 10^3/uL (4.3-11.0)
[2021-02-28] MEDS: LACTATED RINGERS 1,000 ML IV SCH ×3 (06:19→13:41)
[2021-02-28 06:21] LABS: CALCIUM 9.3 MG/DL (8.5-10.1); CREATININE SERUM 0.74 MG/DL (0.60-1.30); POTASSIUM 2.8 MMOL/L (3.6-5.0)
[2021-02-28] MEDS: fentaNYL INJ 100 MCG/2 ML AMP IVP PRN ×3 (06:33→16:56)
[2021-02-28] MEDS: HYDROmorphone 2 MG/ML VIAL (DILAUDID) IVP PRN ×3 (08:36→20:46)
[2021-02-28] MEDS: LABETALOL HCL 20 MG/4 ML VIAL IV PRN (11:20)
[2021-02-28] MEDS: ONDANSETRON 4 MG/2 ML (SDV) Z0FRAN IVP PRN ×2 (13:38→19:44)
[2021-02-28] MEDS ORDERED: KCL 20 MEQ TAB (K-DUR) PO ONE (14:00)
[2021-02-28] MEDS ORDERED: MTP100TCR PO (14:59)
[2021-02-28] MEDS ORDERED: OMEP20CA18 PO (14:59)
[2021-02-28] MEDS ORDERED: DICY20TA10 PO (14:59)
[2021-02-28] MEDS ORDERED: lisINopril 20 MG (PRINIVIL) TABLET PO NR (16:45)
[2021-02-28 17:12] LABS: POTASSIUM 2.9 MMOL/L (3.6-5.0)
[2021-02-28 17:13] LABS: CALCIUM 9.1 MG/DL (8.5-10.1)
[2021-02-28 17:18] LABS: CREATININE SERUM 0.69 MG/DL (0.60-1.30)
[2021-02-28 17:20] LABS: MAGNESIUM 1.7 MG/DL (1.6-2.4)
--- NOTE | 2021-02-28 21:19 | History & Physical ---
HPI History of Present Illness: 45 yo F with known cyclic vomiting syndrome that presented with N/V and increasing abdominal pain. States that she has not had any more episodes of vomiting since admission. She has not tried to eat since arrival. Patient states that she no longer is using MJ. She has an appt coming up with GI specialist next month. States that she is ready to try and eat. Denies any other concerns or pain at this time. Source: patient Exam Limitations: no limitations Date seen by provider: Feb 28, 2021 Time Seen by Provider: 11:00 Attending Physician Krystin Rodrigues MD [place] [place] Consult Date of Admission Feb 27, 2021 at 18:45 Home Medications Home Medications Reviewed patient Home Medication Reconciliation performed by pharmacy medication reconciliations natural gas technician and/or nursing. Patients Allergies have been reviewed. Allergies Coded Allergies: morphine (Verified Allergy, Unknown, CAUSES "REBOUND HEADACHES", 12/13/20) PT HAS RECEIVED LORTAB & OXYCODONE IN THE PAST baclofen (Verified Adverse Reaction, Severe, 12/13/20) PATIENT UNAWARE OF REACTION BUT WAS HOSPITALIZED AFTER TAKING MEDICATION AND WAS TOLD IT WAS A REACTION DUE TO THE MEDICATION SHE TOOK. meloxicam (Verified Adverse Reaction, Severe, 12/13/20) PATIENT UNAWARE OF REACTION BUT WAS HOSPITALIZED AFTER TAKING MEDICATION AND WAS TOLD IT WAS A REACTION DUE TO THE MEDICATION SHE TOOK. NSAIDS (Non-Steroidal Anti-Inflamma (Verified Adverse Reaction, Mild, have IBS and avoid NSAIDS, 12/13/20) SLE-Xeixuu-Byviwg Hx Patient Social History Drug of Choice: last smoked 3 months ago Smoking Status: Never a Smoker 2nd Hand Smoke Exposure: No Recent Hopitalizations: No Alcohol Use?: No Have you traveled recently?: No Immunizations Up To Date Tetanus Booster (TDap): Unknown Date of Pneumonia Vaccine: Mar 03, 2014 Date of Influenza Vaccine: Mar 03, 2015 Past Medical History 1. IRRITABLE BOWEL SYNDROME 2. DEPRESSION 3. MOOD DISORDER 4. CHRONIC BACK PAIN 5. HYSTERECTOMY 6. TUBAL LIGATION 7. BLADDER "TIE UP" 8. TONSILLECTOMY 9. SEIZURES Family Medical History Significant Family History: Heart Disease, Hypertension Other Significan Family Hx: PAST SURGICAL HISTORY: -09/20/20--LAPAROSCOPY FOR INTUSSCEPTION BY DR. BHATTI -08/24/20 --EGD/COLONOSCOPY--DX GASTRITIS/ESOPHAGITIS -CHOLECYSTECTOMY -BILATERAL TUBAL LIGATION -HYSTERECTOMY/BILATERAL SALPINGO-OOPHORECTOMY 2005 -BLADDER SLING/LATER REMOVED -CARDIAC CATH 2012--NORMAL Family History: Diabetes mellitus 19 FATHER FHx: brain tumor 19 MOTHER HPV infection G8 SISTER No Family History of: AIDS Abdominal aortic aneurysm [place]'s disease Alcoholism Alzheimer's disease Aphasia Arthritis Asthma Cancer of mouth Cardiovascular disease Cataracts Colon cancer Completed stroke Congenital disease Congenital heart disease Coronary thrombosis Cystic fibrosis Deafness or hearing loss Dementia Drug abuse Dysphasia Fibrocystic disease of breast Gastroenteritis Glaucoma Headache disorder Hypercholesterolemia Hypertension Infertility Kidney disease Myocardial infarction Neoplasm Not obtainable due to adoption Osteoporosis Parkinson's disease Prostate cancer Psychosocial problem Respiratory disorder Seizure disorder Severe allergy Thyroid disease Tuberculosis Visual disorder Review of Systems ([facility]) Constitutional: No chills, No fever; malaise EENTM: no symptoms reported; No mouth pain, No nose pain Respiratory: no symptoms reported; No cough, No dyspnea on exertion, No short of breath Cardiovascular: no symptoms reported; No chest pain, No edema, No palpitations Gastrointestinal: abdominal pain, constipation, loss of appetite, nausea, vomiting Genitourinary: no symptoms reported; No dysuria, No frequency : No Musculoskeletal: no symptoms reported; No back pain, No joint pain, No muscle p ain Skin: no symptoms reported Psychiatric/Neurological: No Symptoms Reported Reviewed Test Results Reviewed Test Results Lab Laboratory Tests Test 02/27/21 23:40 02/28/21 05:50 02/28/21 16:35 Range/Units Urine Color YELLOW Urine Clarity CLEAR Urine pH 7.0 5-9 Urine Specific [place] <=1.005 1.016-1.022 Urine Protein NEGATIVE NEGATIVE Urine Glucose (UA) NEGATIVE NEGATIVE Urine Ketones TRACE H NEGATIVE Urine Nitrite NEGATIVE NEGATIVE Urine Bilirubin NEGATIVE NEGATIVE Urine Urobilinogen 0.2 < = 1.0 MG/DL Urine Leukocyte Esterase NEGATIVE NEGATIVE Urine RBC (Auto) NEGATIVE NEGATIVE Urine RBC NONE /HPF Urine WBC NONE /HPF Urine Squamous Epithelial Cells 2-5 /HPF Urine Crystals NONE /LPF Urine Bacteria NEGATIVE /HPF Urine Casts NONE /LPF Urine Mucus NEGATIVE /LPF Urine Culture Indicated NO Urine Opiates Screen POSITIVE H NEGATIVE Urine Oxycodone Screen NEGATIVE NEGATIVE Urine Methadone Screen NEGATIVE NEGATIVE Urine Propoxyphene Screen NEGATIVE NEGATIVE Urine Barbiturates Screen NEGATIVE NEGATIVE Ur Tricyclic Antidepressants Screen NEGATIVE NEGATIVE Urine Phencyclidine Screen NEGATIVE NEGATIVE Urine Amphetamines Screen NEGATIVE NEGATIVE Urine Methamphetamines Screen NEGATIVE NEGATIVE Urine Benzodiazepines Screen NEGATIVE NEGATIVE Urine Cocaine Screen NEGATIVE NEGATIVE Urine Cannabinoids Screen POSITIVE H NEGATIVE White Blood Count 5.5 4.3-11.0 10^3/uL Red Blood Count 4.29 3.80-5.11 10^6/uL Hemoglobin 11.2 L 11.5-16.0 g/dL Hematocrit 36 35-52 % Mean Corpuscular Volume 84 80-99 fL Mean Corpuscular Hemoglobin 26 25-34 pg Mean Corpuscular Hemoglobin Concent 31 L 32-36 g/dL Red Cell Distribution Width 15.9 H 10.0-14.5 % Platelet Count 352 130-400 10^3/uL Mean Platelet Volume 9.3 9.0-12.2 fL Immature Granulocyte % (Auto) 0 % Neutrophils (%) (Auto) 52 42-75 % Lymphocytes (%) (Auto) 36 12-44 % Monocytes (%) (Auto) 10 0-12 % Eosinophils (%) (Auto) 1 0-10 % Basophils (%) (Auto) 0 0-10 % Neutrophils # (Auto) 2.9 1.8-7.8 10^3/uL Lymphocytes # (Auto) 2.0 1.0-4.0 10^3/uL Monocytes # (Auto) 0.6 0.0-1.0 10^3/uL Eosinophils # (Auto) 0.1 0.0-0.3 10^3/uL Basophils # (Auto) 0.0 0.0-0.1 10^3/uL Immature Granulocyte # (Auto) 0.0 0.0-0.1 10^3/uL Sodium Level 142 142 135-145 MMOL/L Potassium Level 2.8 L 2.9 L 3.6-5.0 MMOL/L Chloride Level 102 100 98-107 MMOL/L Carbon Dioxide Level 29 30 21-32 MMOL/L Anion Gap 11 12 5-14 MMOL/L Blood Urea Nitrogen 4 L 3 L 7-18 MG/DL Creatinine 0.74 0.69 0.60-1.30 MG/DL Estimat Glomerular Filtration Rate 86 93 BUN/Creatinine Ratio 5 4 Glucose Level 108 H 106 H 70-105 MG/DL Calcium Level 9.3 9.1 8.5-10.1 MG/DL Magnesium Level 1.7 1.6-2.4 MG/DL Physical Exam-([facility]) Physical Exam Vital Signs VS - Last 72 Hours, by Label 02/27/21 02/27/21 02/27/21 02/28/21 13:53 19:59 20:26 00:00 Temp 36.8 37.1 37.0 Pulse 121 92 88 83 Resp 20 18 22 18 B/P (MAP) 206/140 (162) 166/107 188/117 (140) 161/100 (120) Pulse Ox 98 100 93 96 O2 Delivery Room Air Room Air Room Air Room Air 02/28/21 02/28/21 02/28/21 02/28/21 04:00 08:00 09:00 11:37 Temp 37.0 37.5 36.9 Pulse 86 84 92 Resp 20 20 20 B/P (MAP) 172/114 (133) 170/104 (126) 161/115 (130) Pulse Ox 97 95 95 O2 Delivery Room Air Room Air Room Air Room Air 02/28/21 02/28/21 02/28/21 02/28/21 13:00 16:00 16:45 19:44 Temp 37.0 37.2 Pulse 94 96 Resp 20 22 B/P (MAP) 156/89 (111) 182/85 (117) 178/106 (130) 174/81 (112) Pulse Ox 95 93 O2 Delivery Room Air Room Air 02/28/21 20:16 O2 Delivery Room Air Capillary Refill : Less Than 3 Seconds General Appearance: WD/WN, no apparent distress HEENT: PERRL/EOMI Neck: non-tender, full range of motion, supple Respiratory: chest non-tender, lungs clear, normal breath sounds, no respiratory distress, no accessory muscle use Cardiovascular: normal peripheral pulses, regular rate, rhythm, no edema, no murmur Gastrointestinal: normal bowel sounds, soft, tenderness (diffuse) Back: no CVA tenderness Extremities: normal range of motion, non-tender, normal inspection, no pedal edema, no calf tenderness, normal capillary refill Neurologic/Psychiatric: 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-XII nml as tested, no motor/sensory deficits, alert, normal mood/affect, oriented x 3 Skin: normal color, warm/dry Lymphatic: no adenopathy Assessment/Plan Assessment/Plan Admission Status: Observation (1) Cyclical vomiting syndrome Status: Chronic Assessment & Plan: - Improving, advance diet as tolerated, Make sure to keep GI appt (2) Nausea & vomiting Status: Acute Qualifiers: Qualified Codes: R11.2 - Nausea with vomiting, unspecified (3) Chronic abdominal pain Status: Acute (4) HTN (hypertension) Status: Chronic Assessment & Plan: - Restart home meds, Start Norvasc due to uncontrolled HTN Qualifiers: Qualified Codes: I10 - Essential (primary) hypertension (5) Hypokalemia Status: Acute Assessment & Plan: - Start BID potassium replacement, daily BMP (6) DVT prophylaxis Status: Acute Assessment & Plan: - KRYSTIN Gaviria MD Feb 28, 2021 21:19
[2021-02-28] MEDS: amLODIPine 5 MG (NORVASC) TAB PO SCH (21:43)
[2021-02-28] MEDS: KCL 20 MEQ TAB (K-DUR) PO SCH (21:43)
[2021-03-01] MEDS: LACTATED RINGERS 1,000 ML IV SCH (02:50)
[2021-03-01] MEDS: HYDROmorphone 2 MG/ML VIAL (DILAUDID) IVP PRN (02:50)
[2021-03-01] MEDS: ACETAMINOPHEN 325 MG TABLET PO PRN ×2 (02:54→11:15)
[2021-03-01 03:00] VITALS: BP 172/80
[2021-03-01 06:46] LABS: CHLORIDE 101 MMOL/L (98-107); POTASSIUM 3.2 MMOL/L (3.6-5.0); SODIUM 142 MMOL/L (135-145)
[2021-03-01 06:47] LABS: CALCIUM 9.4 MG/DL (8.5-10.1)
[2021-03-01 06:48] LABS: GLUCOSE 97 MG/DL (70-105)
[2021-03-01 06:49] LABS: CARBON DIOXIDE 30 MMOL/L (21-32)
[2021-03-01 06:52] LABS: CREATININE SERUM 0.69 MG/DL (0.60-1.30); GFR ESTIMATED 93
[2021-03-01 06:53] LABS: BUN/CREATININE RATIO 3
[2021-03-01 06:54] LABS: MAGNESIUM 1.9 MG/DL (1.6-2.4)
[2021-03-01 08:00] VITALS: BP 157/91
[2021-03-01] MEDS: KCL 20 MEQ TAB (K-DUR) PO SCH (08:30)
[2021-03-01] MEDS: amLODIPine 5 MG (NORVASC) TAB PO SCH (08:31)
[2021-03-01] MEDS ORDERED: meTOprolol SUCCINATE 100 MG (TOPROL XL) TAB PO SCH (09:00)
[2021-03-01] MEDS ORDERED: DICYCLOMINE 10 MG (BENTYL) CAP PO SCH (09:00)
[2021-03-01] MEDS ORDERED: lisINopril 40 MG (PRINIVIL) TABLET PO SCH (09:00)
--- NOTE | 2021-03-01 12:07 | Discharge Summary ---
Diagnosis/Chief Complaint Date of Admission Feb 27, 2021 at 18:45 Date of Discharge 03/01/2021 Discharge Diagnosis Problems/Diagnosis: (1) Cyclical vomiting syndrome Assessment & Plan: - Improving, advance diet as tolerated, Make sure to keep GI appt Status: Chronic (2) Nausea & vomiting Qualifiers: Qualified Codes: R11.2 - Nausea with vomiting, unspecified Status: Acute (3) Chronic abdominal pain Status: Acute (4) HTN (hypertension) Assessment & Plan: - Restart home meds, Start Norvasc due to uncontrolled HTN Qualifiers: Qualified Codes: I10 - Essential (primary) hypertension Status: Chronic (5) Hypokalemia Assessment & Plan: - Start BID potassium replacement, daily BMP Status: Acute (6) DVT prophylaxis Assessment & Plan: - Lovenox Status: Acute Chief Complaint/HPI Chief Complaint/HPI 45 yo F with known cyclic vomiting syndrome that presented with N/V and increasing abdominal pain. States that she has not had any more episodes of vomiting since admission. She has not tried to eat since arrival. Patient states that she no longer is using MJ. She has an appt coming up with GI specialist next month. States that she is ready to try and eat. Denies any other concerns or pain at this time. Discharge Summary-Simple/Stand Consultations Discharge Physical Examination Allergies: Coded Allergies: morphine (Verified Allergy, Unknown, CAUSES "REBOUND HEADACHES", 12/13/20) PT HAS RECEIVED LORTAB & OXYCODONE IN THE PAST baclofen (Verified Adverse Reaction, Severe, 12/13/20) PATIENT UNAWARE OF REACTION BUT WAS HOSPITALIZED AFTER TAKING MEDICATION AND WAS TOLD IT WAS A REACTION DUE TO THE MEDICATION SHE TOOK. meloxicam (Verified Adverse Reaction, Severe, 12/13/20) PATIENT UNAWARE OF REACTION BUT WAS HOSPITALIZED AFTER TAKING MEDICATION AND WAS TOLD IT WAS A REACTION DUE TO THE MEDICATION SHE TOOK. NSAIDS (Non-Steroidal Anti-Inflamma (Verified Adverse Reaction, Mild, have IBS and avoid NSAIDS, 12/13/20) Vitals & I&Os Vital Sign - Last 12Hours Date Time Temp Pulse Resp B/P (MAP) Pulse Ox O2 Delivery O2 Flow Rate FiO2 03/01/21 08:00 36.3 91 18 157/91 (113) 93 Room Air Intake and Output 03/01/21 00:00 Intake Total 690 ml Output Total 800 ml Balance -110 ml Hospital Course See final discharge diagnosis. Discharge Instructions to patient/family Please see electronic discharge instructions given to patient. Discharge Medications Reviewed and agree with Discharge Medication list on patient's Discharge Instruction sheet KRYSTIN RAMOS MD Mar 01, 2021 12:07
[2021-03-01] MEDS ORDERED: LISI40TA9 PO (12:09)
[2021-03-01] MEDS ORDERED: AMLO-250 PO (12:09)
--- NOTE | 2021-03-01 12:10 | Discharge Summary ---
Discharge [facility] Discharge Medications New, Converted or Re-Newed RX: Transmitted to Pharmacy New Medications: Amlodipine Besylate (Amlodipine Besylate) 5 Mg Tablet 5 MG PO DAILY, #30 TAB Lisinopril (Lisinopril) 40 Mg Tablet 40 MG PO DAILY, #30 TAB Continued Medications: Dicyclomine HCl (Dicyclomine HCl) 20 Mg Tablet 20 MG PO QID, TAB Metoprolol Succinate (Metoprolol Succinate) 100 Mg Tab.er.24h 100 MG PO DAILY, TAB Omeprazole (Omeprazole) 20 Mg Capsule.dr 20 MG PO DAILY, CAP Sucralfate (Sucralfate) 1 Gm Tablet 1 GM PO BID, TAB Sumatriptan Succinate (Sumatriptan Succinate) 100 Mg Tablet 100 MG PO DAILY PRN for MIGRAINE MDD 200, TAB Discontinued Medications: Tizanidine HCl (Tizanidine HCl) 4 Mg Tablet 4 MG PO TID PRN for MUSCLE SPASMS, TAB Patient Instructions Goal/Follow Up Appt: Make sure to keep your appt with your GI doctor next week F.u with PCP 2 weeks Activity & Diet Discharge Diet: Low Residue (bland diet) Activity as Tolerated: Yes [facility]: [facility] HOLLY R MD Mar 01, 2021 12:10
== END 2021-03-01 12:45 | disposition home or self-care (01) ==
LOC: EDUNIT# 13:40 → ER 13:41 → 4TH 18:45
PROVIDERS: ADMIT Family Medicine; ATTEND Family Medicine
DX: R11.15 Cyclical vomiting syndrome unrelated to migraine (principal); R11.2 Nausea with vomiting, unspecified; R10.84 Generalized abdominal pain; E87.6 Hypokalemia; I10 Essential (primary) hypertension; K21.9 Gastro-esophageal reflux disease without esophagitis; G89.29 Other chronic pain; M54.9 Dorsalgia, unspecified; F32.9 Major depressive disorder, single episode, unspecified; F41.9 Anxiety disorder, unspecified; Z79.899 Other long term (current) drug therapy
CPT/HCPCS: 36415; 74177; 80048; 80053; 80306; 81000; 83690; 83735; 85025; 86141

== ENCOUNTER 2021-03-13 13:45 | Emergency (ER) | payer SELFPAY ==
[~2021-03-13] VITALS: Ht 167.7 cm; Wt 77.1 kg
[~2021-03-13 13:45] MED LIST changes: +MTP100TCR PO; +SCOP1PAT10 TD; -SCOP1PAT11 TD
[2021-03-13] MEDS ORDERED: ONDANSETRON 4 MG/2 ML (SDV) Z0FRAN ONE (13:58)
[2021-03-13] MEDS ORDERED: LACTATED RINGERS 1,000 ML IV ONE ×2 (14:15→15:30)
[2021-03-13 14:29] LABS: BASOPHILS % (AUTO) 0 % (0-10); EOSINOPHILS % (AUTO) 0 % (0-10); HEMATOCRIT 45 % (35-52); HEMOGLOBIN 14.3 g/dL (11.5-16.0); LYMPHOCYTES # (AUTO) 1.8 10^3/uL (1.0-4.0); LYMPHOCYTES % (AUTO) 16 % (12-44); MEAN CORPUSCULAR HEMOGLOBIN 26 pg (25-34); MEAN CORPUSCULAR HGB CONC 32 g/dL (32-36); MEAN CORPUSCULAR VOLUME 83 fL (80-99); MEAN PLATELET VOLUME 9.7 fL (9.0-12.2); MONOCYTES # (AUTO) 0.6 10^3/uL (0.0-1.0); MONOCYTES % (AUTO) 5 % (0-12); NEUTROPHILS # (AUTO) 8.8 10^3/uL (1.8-7.8); NEUTROPHILS % (AUTO) 78 % (42-75); PLATELET COUNT 461 10^3/uL (130-400); WHITE BLOOD COUNT 11.3 10^3/uL (4.3-11.0)
--- NOTE | 2021-03-13 14:29 | ED GI ---
General Chief Complaint: Abdominal/GI Problems Stated Complaint: N/V,COUGH Source of Information: Patient, Old Records History of Present Illness Date Seen by Provider: Mar 13, 2021 Time Seen by Provider: 14:05 Initial Comments PT ARRIVES VIA POV C/O NAUSEA, VOMITING AND GENERALIZED ABDOMINAL PAIN SINCE MIDNIGHT NO DIARRHEA PT IS VOIDING A NORMAL AMOUNT THIS IS A CHRONIC PROBLEM/COMPLAINT FOR PT FOR YEARS, AND IS EXACTLY THE SAME ALL PREVIOUS PRESENTATIONS PT WITH CANNIBUS HYPEREMESIS SYNDROME PT CLAIMS NO MARIJUANA "FOR OVER 6 MONTHS" BUT UDS WAS + FOR THC AND OPIATES ON 02/27/21 PT HAS HAD EXTENSIVE WORK-UP'S BY MULTIPLE PROVIDERS --HAS HAD 7 CT SCANS OF ABDOMEN / PELVIS IN 2020, IN ADDITION TO PLAIN FILMS AND CT OF HEAD; LAST CT SCANS OF ABDOMEN / PELVIS WERE ON 02/15/21 AND 02/27/21 AND BOTH DID NOT SHOW ANY ACUTE PROCESS. PT LAST HAD EGD 01/16/[address] BHATTI AND FOUND TO HAVE GASTRITIS AND ESOPHAGITIS PT LAST ADMITTED HERE 02/27-03/01/21 FOR THIS SAME PROBLEM AND WORK UP WAS NEGATIVE. UDS + FOR THC AND OPIATES ON 02/27/21 THIS IS PT'S 25TH VISIT HERE IN 2020--ALL FOR EXACT SAME COMPLAINT PT HAS RECEIVED LARGE AMOUNTS OF NARCOTICS WITH THESE VISITS WELL A MULTITUDE OF GI MEDICATIONS. PT HAS NOT SEEN A GI SPECIALIST AT THIS TIME. PT HAS NOT HAD COVID-19 VACCINE DENIES ANY SICK CONTACTS OR SUSPICIOUS FOODS PT STATES SHE DOES NOT WORK LIVES AT HOME WITH HER SON, AND HE IS NOT ILL. PT STATES SHE LAST SAW [place] [facility] AT [facility] ON 03/07/21, NO TESTS OR MEDICATIONS/RX'S GIVEN PT STATES SHE IS NOT ON ANY ACID-REDUCING MEDICATIONS--HAS BEEN PRESCRIBED OMEPRAZOLE ON PRIOR VISITS HERE PT CLAIMS SHE TOOK BENTYL THIS AM, AND ZOFRAN PT ALSO STATES SHE HAS CARAFATE AT HOME AND HAS BEEN TAKING IT AND TOOK SOME TODAY PCP: [facility] Allergies and Home Medications Allergies Coded Allergies: morphine (Verified Allergy, Unknown, CAUSES "REBOUND HEADACHES", 12/13/20) PT HAS RECEIVED LORTAB & OXYCODONE IN THE PAST baclofen (Verified Adverse Reaction, Severe, 12/13/20) PATIENT UNAWARE OF REACTION BUT WAS HOSPITALIZED AFTER TAKING MEDICATION AND WAS TOLD IT WAS A REACTION DUE TO THE MEDICATION SHE TOOK. meloxicam (Verified Adverse Reaction, Severe, 12/13/20) PATIENT UNAWARE OF REACTION BUT WAS HOSPITALIZED AFTER TAKING MEDICATION AND WAS TOLD IT WAS A REACTION DUE TO THE MEDICATION SHE TOOK. NSAIDS (Non-Steroidal Anti-Inflamma (Verified Adverse Reaction, Mild, have IBS and avoid NSAIDS, 12/13/20) Patient Home Medication List Home Medication List Reviewed: Yes Amlodipine Besylate (Amlodipine Besylate) 5 Mg Tablet, 5 MG PO DAILY Prescribed by: KRYSTIN RAMOS on 03/01/21 1209 Dicyclomine HCl (Dicyclomine HCl) 20 Mg Tablet, 20 MG PO QID, (Reported) Entered as Reported by: ZAIRA ARCHER on 02/28/21 1459 Lisinopril (Lisinopril) 40 Mg Tablet, 40 MG PO DAILY Prescribed by: KRYSTIN RAMOS on 03/01/21 1209 Metoprolol Succinate (Metoprolol Succinate) 100 Mg Tab.er.24h, 100 MG PO DAILY, (Reported) Entered as Reported by: ZAIRA ARCHER on 02/28/21 1459 Omeprazole (Omeprazole) 20 Mg Capsule.dr, 20 MG PO DAILY, (Reported) Entered as Reported by: ZAIRA ARCHER on 02/28/21 1459 Ondansetron (Ondansetron Odt) 8 Mg Tab.rapdis, 8 MG PO Q6H Prescribed by: CHANTEL MAYORGA on 03/13/21 1523 Pantoprazole Sodium (Protonix) 40 Mg Tablet.dr, 40 MG PO DAILY Prescribed by: CHANTEL MAYORGA on 03/13/21 1523 Sucralfate (Sucralfate) 1 Gm Tablet, 1 GM PO BID, (Reported) Entered as Reported by: YOEL GEORGES on 09/19/20 1353 Sumatriptan Succinate (Sumatriptan Succinate) 100 Mg Tablet, 100 MG PO DAILY PRN for MIGRAINE, (Reported) Entered as Reported by: ZAIRA ARCHER on 08/25/20 0943 Review of Systems Review of Systems Constitutional: no symptoms reported Gastrointestinal: See HPI, Abdominal Pain, Nausea, Poor Fluid Intake, Vomiting Past Evncnrm-Fxspsp-Mgtbkr Hx Patient Social History Tobacco Use?: No Use of E-Cig and/or Vaping dev: No Substance use?: Yes Substance type: Marijuana Alcohol Use?: No Pt feels they are or have been: No Immunizations Up To Date Tetanus Booster (TDap): Unknown PED Vaccines UTD: No Seasonal Allergies Seasonal Allergies: No Past Medical History Surgery/Hospitalization HX: TONSILLECTOMY HYSTERECTOMY BILATERAL TUBAL LIGATION CHOLECYSTECTOMY LAPAROSCOPY 09/19/[address] BHATTI FOR INTUSSUCEPTION EGD'S--LAST ONE 01/16/[address] 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 History: 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 Sexually Transmitted Disease: Yes (HPV) HIV/AIDS: No Genitourinary: Yes Bladder Infection Gastrointestinal: Yes (History of cyclic vomiting and cannabis hyperemesis;CHRONIC N/V/ABD PAIN ) Gastroesophageal Reflux, Diverticulosis, Esophagitis, Hiatal Hernia, Gall Bladder Disease Musculoskeletal: Yes Chronic Back Pain Endocrine: No HEENT: Yes (POOR DENTITION) Loss of Vision: Denies Hearing Impairment: Denies Cancer: Yes Uterine Psychosocial: Yes (THC USE) Anxiety, Depression Integumentary: No Blood Disorders: No Adverse Reaction/Blood Tranf: No Family Medical History Diabetes mellitus 19 FATHER FHx: brain tumor 19 MOTHER HPV infection G8 SISTER No Family History of: AIDS Abdominal aortic aneurysm Halliday's disease Alcoholism Alzheimer's disease Aphasia Arthritis Asthma Cancer of mouth Cardiovascular disease Cataracts Colon cancer Completed stroke Congenital disease Congenital heart disease Coronary thrombosis Cystic fibrosis Deafness or hearing loss Dementia Drug abuse Dysphasia Fibrocystic disease of breast Gastroenteritis Glaucoma Headache disorder Hypercholesterolemia Hypertension Infertility Kidney disease Myocardial infarction Neoplasm Not obtainable due to adoption Osteoporosis Parkinson's disease Prostate cancer Psychosocial problem Respiratory disorder Seizure disorder Severe allergy Thyroid disease Tuberculosis Visual disorder Heart Disease, Hypertension PAST SURGICAL HISTORY: -09/20/20--LAPAROSCOPY FOR INTUSSCEPTION BY DR. BHATTI -08/24/20 --EGD/COLONOSCOPY--DX GASTRITIS/ESOPHAGITIS -01/16/21--EGD BY DR. BHATTI--DX GASTRITIS/ESOPHAGITIS/SMALL HIATAL HERNIA -CHOLECYSTECTOMY -BILATERAL TUBAL LIGATION -HYSTERECTOMY/BILATERAL SALPINGO-OOPHORECTOMY 2005 -BLADDER SLING/LATER REMOVED -CARDIAC CATH 2012--NORMAL Physical Exam Vital Signs Vital Signs - First Documented 03/13/21 13:54 Temp 36.7 Pulse 138 Resp 22 B/P (MAP) 158/130 (139) Pulse Ox 97 O2 Delivery Room Air Capillary Refill : Less Than 3 Seconds Height/Weight/BMI Height: 5'6.00" Weight: 203lbs. 6.4oz. 92.360242mg; 27.00 BMI Method:Stated General Appearance: other (EXTREMELY DRAMATIC, VERY LOUD, VERY HARSH, FORCED DRY HEAVING; PT MOANING VERY LOUDLY AND "SOBBING" VERY LOUDLY--NO TEARS, EXTREMELY DRAMATIC. 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, no motor/sensory deficits, alert, oriented x 3 Skin: normal color, warm/dry; No rash Progress/Results/Core Measures Results/Orders Lab Results Laboratory Tests Test 03/13/21 14:00 03/13/21 14:14 Range/Units White Blood Count 11.3 H 4.3-11.0 10^3/uL Red Blood Count 5.42 H 3.80-5.11 10^6/uL Hemoglobin 14.3 11.5-16.0 g/dL Hematocrit 45 35-52 % Mean Corpuscular Volume 83 80-99 fL Mean Corpuscular Hemoglobin 26 25-34 pg Mean Corpuscular Hemoglobin Concent 32 32-36 g/dL Red Cell Distribution Width 15.9 H 10.0-14.5 % Platelet Count 461 H 130-400 10^3/uL Mean Platelet Volume 9.7 9.0-12.2 fL Immature Granulocyte % (Auto) 0 % Neutrophils (%) (Auto) 78 H 42-75 % Lymphocytes (%) (Auto) 16 12-44 % Monocytes (%) (Auto) 5 0-12 % Eosinophils (%) (Auto) 0 0-10 % Basophils (%) (Auto) 0 0-10 % Neutrophils # (Auto) 8.8 H 1.8-7.8 10^3/uL Lymphocytes # (Auto) 1.8 1.0-4.0 10^3/uL Monocytes # (Auto) 0.6 0.0-1.0 10^3/uL Eosinophils # (Auto) 0.0 0.0-0.3 10^3/uL Basophils # (Auto) 0.0 0.0-0.1 10^3/uL Immature Granulocyte # (Auto) 0.1 0.0-0.1 10^3/uL Sodium Level 143 135-145 MMOL/L Potassium Level 3.4 L 3.6-5.0 MMOL/L Chloride Level 105 98-107 MMOL/L Carbon Dioxide Level 21 21-32 MMOL/L Anion Gap 17 H 5-14 MMOL/L Blood Urea Nitrogen 9 7-18 MG/DL Creatinine 0.97 0.60-1.30 MG/DL Estimat Glomerular Filtration Rate 63 BUN/Creatinine Ratio 9 Glucose Level 136 H 70-105 MG/DL Calcium Level 10.6 H 8.5-10.1 MG/DL Corrected Calcium 10.4 H 8.5-10.1 MG/DL Magnesium Level 1.8 1.6-2.4 MG/DL Total Bilirubin 0.5 0.1-1.0 MG/DL Aspartate Amino Transf (AST/SGOT) 20 5-34 U/L Alanine Aminotransferase (ALT/SGPT) 31 0-55 U/L Alkaline Phosphatase 102 40-136 U/L C-Reactive Protein High Sensitivity 0.45 0.00-0.50 MG/DL Total Protein 7.9 6.4-8.2 GM/DL Albumin 4.3 3.2-4.5 GM/DL Amylase Level 21 L 25-125 U/L Lipase 70 8-78 U/L Procalcitonin 1.24 H <0.10 NG/ML Serum Test, Qualitative NEGATIVE NEGATIVE Serum Alcohol < 10 <10 MG/DL Influenza Type A (RT-PCR) Not Detected Not Detecte Influenza Type B (RT-PCR) Not Detected Not Detecte SARS-CoV-2 RNA (RT-PCR) Not Detected Not Detecte My Orders Orders - CHANTEL MAYORGA DO Ondansetron Injection (Zofran Injectio (03/13/21 13:58) Ed Iv/Invasive Line Start (03/13/21 14:10) Monitor-Rhythm Ecg Trace Only (03/13/21 14:10) Alcohol (03/13/21 14:10) Amylase (03/13/21 14:10) Cbc With Automated Diff (03/13/21 14:10) Comprehensive Metabolic Panel (03/13/21 14:10) Drug Screen Stat (Urine) (03/13/21 14:10) Hcg,Qualitative Serum (03/13/21 14:10) Lipase (03/13/21 14:10) Magnesium (03/13/21 14:10) Ua Culture If Indicated (03/13/21 14:10) Influenza A And B By Pcr (03/13/21 14:10) Ed Iv/Invasive Line Start (03/13/21 14:10) Lactated Ringers (Lr 1000 Ml Iv Solution (03/13/21 14:15) Procalcitonin (Pct) (03/13/21 14:10) Hs C Reactive Protein (03/13/21 14:10) Covid 19 Inhouse Test (03/13/21 14:10) Haloperidol Injection (Haldol Injectio (03/13/21 14:30) Diphenhydramine Injection (Benadryl Inje (03/13/21 14:30) Pantoprazole Injection (Protonix Injecti (03/13/21 14:30) Dicyclomine Injection (Bentyl Injection) (03/13/21 15:15) Ed Iv/Invasive Line Start (03/13/21 15:18) Lactated Ringers (Lr 1000 Ml Iv Solution (03/13/21 15:30) Medications Given in ED Current Medications Medications Dose Ordered Sig/Judi Route Start Time Stop Time Status Last Admin Dose Admin Dicyclomine HCl 20 mg ONCE ONCE IM 03/13/21 15:15 03/13/21 15:16 DC 03/13/21 15:40 20 MG Diphenhydramine HCl 50 mg ONCE ONCE IVP 03/13/21 14:30 03/13/21 14:31 DC 03/13/21 14:33 50 MG Haloperidol Lactate 5 mg ONCE ONCE IM 03/13/21 14:30 03/13/21 14:31 DC 03/13/21 14:33 5 MG Lactated Ringer's 1,000 ml @ 0 mls/hr Q0M ONCE IV 03/13/21 14:15 03/13/21 14:16 DC 03/13/21 14:18 0 MLS/HR Lactated Ringer's 1,000 ml @ 0 mls/hr Q0M ONCE IV 03/13/21 15:30 03/13/21 15:31 DC 03/13/21 15:40 0 MLS/HR Ondansetron HCl 4 mg STK-MED ONCE .ROUTE 03/13/21 13:58 03/13/21 14:02 DC 03/13/21 14:15 8 MG Pantoprazole 40 mg ONCE ONCE IV 03/13/21 14:30 03/13/21 14:31 DC 03/13/21 14:33 40 MG Vital Signs/I&O 03/13/21 13:54 Temp 36.7 Pulse 138 Resp 22 B/P (MAP) 158/130 (139) Pulse Ox 97 O2 Delivery Room Air Blood Pressure Mean: 139 Progress Progress Note : Progress Note PLACED IN ISOLATION ROOM PPE WORN AT ALL TIMES ONLY HAD A TINY AMOUNT OF GREEN BILE WITH VOMITING, OTHERWISE SHE HAS BEEN HAVING DRY HEAVES NO DIARRHEA GIVEN IV FLUIDS, ZOFRAN, PROTONIX, HALDOL, BENADRYL AND BENTYL SIGNIFICANT IMPROVEMENT IN SYMPTOMS --PT RESTING QUIETLY AND LAYING COMPLETELY OUTSTRETCHED AFTER THE ABOVE MEDICATIONS WERE GIVEN ABDOMINAL DISCOMFORT APPEARS TO BE FROM ABDOMINAL WALL DUE TO REPEATED RETCHING PT REFUSES TO GIVE URINE SPECIMEN Departure Impression Primary Impression: Cannabis hyperemesis syndrome concurrent with and due to cannabis dependence Additional Impressions: GENERALIZED ABDOMINAL WALL PAIN DUE TO RETCHING CHRONIC NAUSEA AND VOMITING Chronic generalized abdominal pain Disposition: 01 HOME, SELF-CARE Condition: Improved Departure-Patient Inst. Decision time for Depature: 15:15 Referrals: [facility] (PCP) Primary Care Physician AUDREY ELIZABETH (Family) Primary Care Physician Patient Instructions: Cannabis Hyperemesis Syndrome Add. Discharge Instructions: CLEAR LIQUIDS--WATER, BROTH, JELLO, GATORADE TOMORROW IF YOU ARE BETTER, ADD BRATS DIET TO CLEAR LIQUIDS--BANANAS, RICE, APPLESAUCE, TOAST, SALTINES NO MARIJUANA OR ANY OTHER DRUGS, EXCEPT WHAT IS PRESCRIBED TO YOU FOLLOW UP WITH [facility] THIS WEEK FOR FURTHER CARE, RETURN TO ER IF WORSE All discharge instructions reviewed with patient and/or family. Voiced understanding. Scripts Ondansetron (Ondansetron Odt) 8 Mg Tab.rapdis 8 MG PO Q6H, #10 TAB Prov: CHANTEL MAYORGA DO 03/13/21 Pantoprazole Sodium (Protonix) 40 Mg Tablet.dr 40 MG PO DAILY, #15 TAB Prov: CHANTEL MAYORGA DO 03/13/21 CHANTEL MAYORGA DO Mar 13, 2021 14:29
[2021-03-13] MEDS ORDERED: HALOPERIDOL 5 MG/ML (HALDOL) VIAL IM ONE (14:30)
[2021-03-13] MEDS ORDERED: diphenhydrAMINE 50 MG/ML INJ (BENADRYL) IVP ONE (14:30)
[2021-03-13] MEDS ORDERED: PANTOPRAZOLE 40 MG (PROTONIX) VIAL IV ONE (14:30)
[2021-03-13 14:43] LABS: ALBUMIN 4.3 GM/DL (3.2-4.5); CHLORIDE 105 MMOL/L (98-107); POTASSIUM 3.4 MMOL/L (3.6-5.0); SODIUM 143 MMOL/L (135-145)
[2021-03-13 14:44] LABS: AMYLASE 21 U/L (25-125); CALCIUM 10.6 MG/DL (8.5-10.1)
[2021-03-13 14:45] LABS: GLUCOSE 136 MG/DL (70-105); TOTAL PROTEIN 7.9 GM/DL (6.4-8.2)
[2021-03-13 14:46] LABS: CARBON DIOXIDE 21 MMOL/L (21-32)
[2021-03-13 14:47] LABS: BILIRUBIN,TOTAL 0.5 MG/DL (0.1-1.0)
[2021-03-13 14:48] LABS: ALKALINE PHOSPHATASE 102 U/L (40-136)
[2021-03-13 14:49] LABS: CREATININE SERUM 0.97 MG/DL (0.60-1.30); GFR ESTIMATED 63
[2021-03-13 14:50] LABS: BUN/CREATININE RATIO 9
[2021-03-13 14:51] LABS: MAGNESIUM 1.8 MG/DL (1.6-2.4)
[2021-03-13 14:52] LABS: ALANINE AMINOTRANSFERASE 31 U/L (0-55)
[2021-03-13 14:53] LABS: LIPASE 70 U/L (8-78)
[2021-03-13] MEDS ORDERED: DICYCLOMINE 10 MG/ML (BENTYL) 2 ML AMP IM ONE (15:15)
[2021-03-13] MEDS ORDERED: ONDA8TAB13 PO (15:23)
[2021-03-13] MEDS ORDERED: PANT40TA2 PO (15:23)
[2021-03-13 16:24] VITALS: BP 167/108
[2021-03-14] MEDS ORDERED: NITR100C PO (14:07)
== END 2021-03-13 16:24 | disposition home or self-care (01) ==
LOC: EDUNIT# 13:45 → ER 13:46
DX: R11.2 Nausea with vomiting, unspecified (principal); F12.20 Cannabis dependence, uncomplicated; R10.84 Generalized abdominal pain; G89.29 Other chronic pain; J45.909 Unspecified asthma, uncomplicated; I10 Essential (primary) hypertension; K21.9 Gastro-esophageal reflux disease without esophagitis; Z20.822 Contact with and (suspected) exposure to COVID-19; Z79.899 Other long term (current) drug therapy
CPT/HCPCS: 80053; 82150; 83690; 83735; 84145; 84703; 85025; 86141; 87636; 93041; 99284; G0480; 36415; 80320

== ENCOUNTER 2021-03-14 10:29 | Emergency (ER) | payer SELFPAY ==
[~2021-03-14] VITALS: Ht 167.7 cm; Wt 80.3 kg
[2021-03-14 11:06] VITALS: BP 175/105
[2021-03-14 11:27] LABS: CLARITY,URINE CLEAR; COLOR,URINE YELLOW; GLUCOSE, URINE (UA) NEGATIVE (NEGATIVE); KETONES,URINE 1+ (NEGATIVE); LEUKOCYTE ESTERASE ,URINE NEGATIVE (NEGATIVE); NITRITE,URINE NEGATIVE (NEGATIVE); PH,URINE 5.5 (5-9); PROTEIN,URINE NEGATIVE (NEGATIVE)
[2021-03-14 11:44] LABS: BACTERIA,URINE FEW /HPF; BILIRUBIN,URINE 1+ (NEGATIVE); WBC,URINE RARE /HPF
[2021-03-14 11:49] LABS: AMPHETAMINE SCREEN, URINE NEGATIVE (NEGATIVE); BARBITURATE SCREEN URINE NEGATIVE (NEGATIVE); BENZODIAZEPINES SCREEN URINE POSITIVE (NEGATIVE); CANNABINOID SCREEN, URINE POSITIVE (NEGATIVE); COCAINE SCREEN URINE NEGATIVE (NEGATIVE); METHADONE STAT NEGATIVE (NEGATIVE); METHAMPHETAMINE SCREEN URINE S NEGATIVE (NEGATIVE); OPIATE SCREEN URINE NEGATIVE (NEGATIVE); OXYCODONE STAT NEGATIVE (NEGATIVE); PROPOXYPHENE STAT NEGATIVE (NEGATIVE); TRICYCLIC ANTIDEPRESSANTS SCRE NEGATIVE (NEGATIVE)
[2021-03-14] MEDS ORDERED: HALOPERIDOL 5 MG/ML (HALDOL) VIAL IM STA (12:24)
[2021-03-14] MEDS ORDERED: PANTOPRAZOLE 40 MG (PROTONIX) VIAL IV STA (12:24)
[2021-03-14] MEDS ORDERED: NS IV 1000 ML 1,000 ML IV SCH (12:30)
[2021-03-14 12:38] LABS: BASOPHILS # (AUTO) 0.1 10^3/uL (0.0-0.1); BASOPHILS % (AUTO) 1 % (0-10); EOSINOPHILS % (AUTO) 0 % (0-10); HEMATOCRIT 42 % (35-52); HEMOGLOBIN 13.4 g/dL (11.5-16.0); LYMPHOCYTES # (AUTO) 2.2 10^3/uL (1.0-4.0); LYMPHOCYTES % (AUTO) 24 % (12-44); MEAN CORPUSCULAR HEMOGLOBIN 26 pg (25-34); MEAN CORPUSCULAR HGB CONC 32 g/dL (32-36); MEAN CORPUSCULAR VOLUME 82 fL (80-99); MEAN PLATELET VOLUME 9.4 fL (9.0-12.2); MONOCYTES # (AUTO) 0.6 10^3/uL (0.0-1.0); MONOCYTES % (AUTO) 7 % (0-12); NEUTROPHILS # (AUTO) 6.3 10^3/uL (1.8-7.8); NEUTROPHILS % (AUTO) 68 % (42-75); PLATELET COUNT 450 10^3/uL (130-400); WHITE BLOOD COUNT 9.2 10^3/uL (4.3-11.0)
[2021-03-14] MEDS ORDERED: HALOPERIDOL 5 MG/ML (HALDOL) VIAL IV ONE (12:45)
[2021-03-14 12:47] LABS: ALBUMIN 4.5 GM/DL (3.2-4.5); CHLORIDE 99 MMOL/L (98-107); SODIUM 142 MMOL/L (135-145)
[2021-03-14 12:49] LABS: CALCIUM 10.6 MG/DL (8.5-10.1)
[2021-03-14 12:50] LABS: GLUCOSE 113 MG/DL (70-105)
[2021-03-14 12:51] LABS: CARBON DIOXIDE 25 MMOL/L (21-32)
[2021-03-14 12:52] LABS: BILIRUBIN,TOTAL 0.6 MG/DL (0.1-1.0)
[2021-03-14 12:54] LABS: ALKALINE PHOSPHATASE 98 U/L (40-136); CREATININE SERUM 0.84 MG/DL (0.60-1.30); GFR ESTIMATED 74
[2021-03-14 12:55] LABS: BUN/CREATININE RATIO 8
[2021-03-14 12:57] LABS: ALANINE AMINOTRANSFERASE 28 U/L (0-55)
[2021-03-14] MEDS ORDERED: NITR100C PO (14:07)
--- NOTE | 2021-03-14 14:10 | ED Abdominal Pain ---
General Chief Complaint: Abdominal/GI Problems Stated Complaint: N/V Nursing Triage Note: PT AMB TO FT 1 W REPORTS OF N/V AND ABD PAIN SX YESTERDAY. History of Present Illness Date Seen by Provider: Mar 14, 2021 Time Seen by Provider: 11:06 Initial Comments 45-year-old female reports for continued nausea, vomiting, and abdominal pain. She was seen in this emergency department yesterday and multiple times over the last year for similar symptoms, with 6 or more CTs in the last 12 months, all with normal findings. She has been prescribed H2 blockers and PPIs but does not take them. She sees a PA at [facility] but has not called about her symptoms today. The patient has known history of using cannabinoids, with cyclical vomiting. She reports no marijuana usage for at least 2 weeks and then at one point she states for 2 months. She refused to give a urine sample on her visit yesterday. Timing/Duration: 3-4 Days Severity/Quality: Mild Location: Generalized Abdomen Associated Symptoms: Denies Symptoms Allergies and Home Medications Allergies Coded Allergies: morphine (Verified Allergy, Unknown, CAUSES "REBOUND HEADACHES", 12/13/20) PT HAS RECEIVED LORTAB & OXYCODONE IN THE PAST baclofen (Verified Adverse Reaction, Severe, 12/13/20) PATIENT UNAWARE OF REACTION BUT WAS HOSPITALIZED AFTER TAKING MEDICATION AND WAS TOLD IT WAS A REACTION DUE TO THE MEDICATION SHE TOOK. meloxicam (Verified Adverse Reaction, Severe, 12/13/20) PATIENT UNAWARE OF REACTION BUT WAS HOSPITALIZED AFTER TAKING MEDICATION AND WAS TOLD IT WAS A REACTION DUE TO THE MEDICATION SHE TOOK. NSAIDS (Non-Steroidal Anti-Inflamma (Verified Adverse Reaction, Mild, have IBS and avoid NSAIDS, 12/13/20) Patient Home Medication List Home Medication List Reviewed: Yes Amlodipine Besylate (Amlodipine Besylate) 5 Mg Tablet, 5 MG PO DAILY Prescribed by: KRYSTIN RAMOS on 03/01/21 1209 Dicyclomine HCl (Dicyclomine HCl) 20 Mg Tablet, 20 MG PO QID, (Reported) Entered as Reported by: ZAIRA ARCHER on 02/28/21 2756 Lisinopril (Lisinopril) 40 Mg Tablet, 40 MG PO DAILY Prescribed by: KRYSTIN RAMOS on 03/01/21 1209 Metoprolol Succinate (Metoprolol Succinate) 100 Mg Tab.er.24h, 100 MG PO DAILY, (Reported) Entered as Reported by: ZAIRA ARCHER on 02/28/21 1459 Nitrofurantoin Macrocrystal (Nitrofurantoin) 100 Mg Capsule, 100 MG PO BID Prescribed by: CHRISTIANO ALANIZ on 03/14/21 1407 Omeprazole (Omeprazole) 20 Mg Capsule.dr, 20 MG PO DAILY, (Reported) Entered as Reported by: ZAIRA ARCHER on 02/28/21 1459 Ondansetron (Ondansetron Odt) 8 Mg Tab.rapdis, 8 MG PO Q6H Prescribed by: CHANTEL MAYORGA on 03/13/21 1523 Pantoprazole Sodium (Protonix) 40 Mg Tablet.dr, 40 MG PO DAILY Prescribed by: CHANTEL MAYORGA on 03/13/21 1523 Sucralfate (Sucralfate) 1 Gm Tablet, 1 GM PO BID, (Reported) Entered as Reported by: YOEL GEORGES on 09/19/20 1353 Sumatriptan Succinate (Sumatriptan Succinate) 100 Mg Tablet, 100 MG PO DAILY PRN for MIGRAINE, (Reported) Entered as Reported by: ZAIRA ARCHER on 08/25/20 0943 Review of Systems Review of Systems Constitutional: no symptoms reported, see HPI Gastrointestinal: See HPI, Abdominal Pain; Denies Constipated, Denies Diarrhea; Nausea, Vomiting All Other Systems Reviewed Negative Unless Noted: Yes Past Rrvesbo-Umrilz-Fzetau Hx Patient Social History Tobacco Use?: No Smoking Status: Never a Smoker Use of E-Cig and/or Vaping dev: No Substance use?: No Alcohol Use?: No Immunizations Up To Date Tetanus Booster (TDap): Unknown PED Vaccines UTD: No Seasonal Allergies Seasonal Allergies: No Past Medical History Surgery/Hospitalization HX: TONSILLECTOMY HYSTERECTOMY BILATERAL TUBAL LIGATION CHOLECYSTECTOMY LAPAROSCOPY 09/19/[address] BHATTI FOR INTUSSUCEPTION EGD'S--LAST ONE 01/16/[address] BHATTI--SHOWED GASTRITIS, SMALL HIATAL. 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 Sexually Transmitted Disease: Yes (HPV) HIV/AIDS: No Genitourinary: Yes Bladder Infection Gastrointestinal: Yes (History of cyclic vomiting and cannabis hyperemesis;CHRONIC N/V/ABD PAIN ) Gastroesophageal Reflux, Diverticulosis, Esophagitis, Hiatal Hernia, Gall Bladder Disease Musculoskeletal: Yes Chronic Back Pain Endocrine: No HEENT: Yes (POOR DENTITION) Loss of Vision: Denies Hearing Impairment: Denies Cancer: Yes Uterine Psychosocial: Yes (THC USE) Anxiety, Depression Integumentary: No Blood Disorders: No Adverse Reaction/Blood Tranf: No Family Medical History Reviewed Nursing Family Hx Diabetes mellitus 19 FATHER FHx: brain tumor 19 MOTHER HPV infection G8 SISTER No Family History of: AIDS Abdominal aortic aneurysm [place]'s disease Alcoholism Alzheimer's disease Aphasia Arthritis Asthma Cancer of mouth Cardiovascular disease Cataracts Colon cancer Completed stroke Congenital disease Congenital heart disease Coronary thrombosis Cystic fibrosis Deafness or hearing loss Dementia Drug abuse Dysphasia Fibrocystic disease of breast Gastroenteritis Glaucoma Headache disorder Hypercholesterolemia Hypertension Infertility Kidney disease Myocardial infarction Neoplasm Not obtainable due to adoption Osteoporosis Parkinson's disease Prostate cancer Psychosocial problem Respiratory disorder Seizure disorder Severe allergy Thyroid disease Tuberculosis Visual disorder Heart Disease, Hypertension PAST SURGICAL HISTORY: -09/20/20--LAPAROSCOPY FOR INTUSSCEPTION BY DR. BHATTI -08/24/20 --EGD/COLONOSCOPY--DX GASTRITIS/ESOPHAGITIS -01/16/21--EGD BY DR. BHATTI--DX GASTRITIS/ESOPHAGITIS/SMALL HIATAL HERNIA -CHOLECYSTECTOMY -BILATERAL TUBAL LIGATION -HYSTERECTOMY/BILATERAL SALPINGO-OOPHORECTOMY 2005 -BLADDER SLING/LATER REMOVED -CARDIAC CATH 2012--NORMAL Physical Exam Vital Signs Vital Signs - First Documented 03/14/21 11:06 Temp 36.4 Pulse 95 Resp 22 B/P (MAP) 175/105 (128) Pulse Ox 98 O2 Delivery Room Air Capillary Refill : Less Than 3 Seconds Height/Weight/BMI Height: 5'6.00" Weight: 203lbs. 6.4oz. 92.194988sk; 28.00 BMI Method:Stated General Appearance: WD/WN, no apparent distress HEENT: PERRL/EOMI, normal ENT inspection, TMs normal, pharynx normal, other (Oral mucosa pink and moist) Neck: non-tender, full range of motion, supple, normal inspection Respiratory: chest non-tender, lungs clear, normal breath sounds Cardiovascular: normal peripheral pulses, regular rate, rhythm Gastrointestinal: normal bowel sounds, non tender, soft; No rebound, No tenderness Extremities: normal range of motion, non-tender, normal inspection, normal capillary refill Neurologic/Psychiatric: no motor/sensory deficits, alert, normal mood/affect, oriented x 3 Skin: normal color, warm/dry; No jaundice Progress/Results/Core Measures Results/Orders Lab Results Laboratory Tests Test 03/14/21 11:15 03/14/21 12:25 Range/Units Urine Color YELLOW Urine Clarity CLEAR Urine pH 5.5 5-9 Urine Specific [place] >=1.030 1.016-1.022 Urine Protein NEGATIVE NEGATIVE Urine Glucose (UA) NEGATIVE NEGATIVE Urine Ketones 1+ H NEGATIVE Urine Nitrite NEGATIVE NEGATIVE Urine Bilirubin 1+ H NEGATIVE Urine Urobilinogen 0.2 < = 1.0 MG/DL Urine Leukocyte Esterase NEGATIVE NEGATIVE Urine RBC (Auto) NEGATIVE NEGATIVE Urine RBC NONE /HPF Urine WBC RARE /HPF Urine Squamous Epithelial Cells 2-5 /HPF Urine Crystals NONE /LPF Urine Bacteria FEW H /HPF Urine Casts NONE /LPF Urine Mucus LARGE H /LPF Urine Culture Indicated YES Urine Opiates Screen NEGATIVE NEGATIVE Urine Oxycodone Screen NEGATIVE NEGATIVE Urine Methadone Screen NEGATIVE NEGATIVE Urine Propoxyphene Screen NEGATIVE NEGATIVE Urine Barbiturates Screen NEGATIVE NEGATIVE Ur Tricyclic Antidepressants Screen NEGATIVE NEGATIVE Urine Phencyclidine Screen NEGATIVE NEGATIVE Urine Amphetamines Screen NEGATIVE NEGATIVE Urine Methamphetamines Screen NEGATIVE NEGATIVE Urine Benzodiazepines Screen POSITIVE H NEGATIVE Urine Cocaine Screen NEGATIVE NEGATIVE Urine Cannabinoids Screen POSITIVE H NEGATIVE White Blood Count 9.2 4.3-11.0 10^3/uL Red Blood Count 5.12 H 3.80-5.11 10^6/uL Hemoglobin 13.4 11.5-16.0 g/dL Hematocrit 42 35-52 % Mean Corpuscular Volume 82 80-99 fL Mean Corpuscular Hemoglobin 26 25-34 pg Mean Corpuscular Hemoglobin Concent 32 32-36 g/dL Red Cell Distribution Width 15.9 H 10.0-14.5 % Platelet Count 450 H 130-400 10^3/uL Mean Platelet Volume 9.4 9.0-12.2 fL Immature Granulocyte % (Auto) 1 % Neutrophils (%) (Auto) 68 42-75 % Lymphocytes (%) (Auto) 24 12-44 % Monocytes (%) (Auto) 7 0-12 % Eosinophils (%) (Auto) 0 0-10 % Basophils (%) (Auto) 1 0-10 % Neutrophils # (Auto) 6.3 1.8-7.8 10^3/uL Lymphocytes # (Auto) 2.2 1.0-4.0 10^3/uL Monocytes # (Auto) 0.6 0.0-1.0 10^3/uL Eosinophils # (Auto) 0.0 0.0-0.3 10^3/uL Basophils # (Auto) 0.1 0.0-0.1 10^3/uL Immature Granulocyte # (Auto) 0.1 0.0-0.1 10^3/uL Sodium Level 142 135-145 MMOL/L Potassium Level 3.0 L 3.6-5.0 MMOL/L Chloride Level 99 98-107 MMOL/L Carbon Dioxide Level 25 21-32 MMOL/L Anion Gap 18 H 5-14 MMOL/L Blood Urea Nitrogen 7 7-18 MG/DL Creatinine 0.84 0.60-1.30 MG/DL Estimat Glomerular Filtration Rate 74 BUN/Creatinine Ratio 8 Glucose Level 113 H 70-105 MG/DL Calcium Level 10.6 H 8.5-10.1 MG/DL Corrected Calcium 10.2 H 8.5-10.1 MG/DL Total Bilirubin 0.6 0.1-1.0 MG/DL Aspartate Amino Transf (AST/SGOT) 22 5-34 U/L Alanine Aminotransferase (ALT/SGPT) 28 0-55 U/L Alkaline Phosphatase 98 40-136 U/L Total Protein 8.0 6.4-8.2 GM/DL Albumin 4.5 3.2-4.5 GM/DL Serum Alcohol < 10 <10 MG/DL My Orders Orders - CHRISTIANO ALANIZ Drug Screen Stat (Urine) (03/14/21 11:11) Ua Culture If Indicated (03/14/21 11:11) Urine Culture (03/14/21 11:15) Cbc With Automated Diff (03/14/21 12:22) Comprehensive Metabolic Panel (03/14/21 12:22) Ed Iv/Invasive Line Start (03/14/21 12:22) Ns Iv 1000 Ml (Sodium Chloride 0.9%) (03/14/21 12:30) Alcohol (03/14/21 12:24) Pantoprazole Injection (Protonix Injecti (03/14/21 12:24) Haloperidol Injection (Haldol Injectio (03/14/21 12:45) Tramadol Tablet (Ultram Tablet) (03/14/21 14:02) Medications Given in ED Current Medications Medications Dose Ordered Sig/Judi Route Start Time Stop Time Status Last Admin Dose Admin Haloperidol Lactate 5 mg ONCE ONCE IV 03/14/21 12:45 03/14/21 12:46 DC 03/14/21 12:42 5 MG Vital Signs/I&O 03/14/21 11:06 Temp 36.4 Pulse 95 Resp 22 B/P (MAP) 175/105 (128) Pulse Ox 98 O2 Delivery Room Air Blood Pressure Mean: 128 Progress Progress Note : Time: 11:06 Progress Note Patient seen and evaluated, will obtain labs, normal saline 1 L IV, Haldol 5 mg IV and Protonix 20 mg IV. Risk vs benefit of CTs discussed, stressed the number of CTs and risk of radiation exposure is high for her. 1130 patient vomited x1. 1230 no further vomiting. Patient does report improvement in her abdominal pain. Urine positive for cannabinoids, discussed with patient. She continues to deny using, recently, but cannot define the exact time of her last usage. 1300 patient taking ice chips, no further nausea or vomiting. Needs treatment for UTI. 1345 discharge instructions and return precautions reviewed with her. Stressed the importance of considering rehab for mental health services for discontinuation of marijuana, otherwise explained that her symptoms will continue to progress. Departure Impression Primary Impression: Cannabis hyperemesis syndrome concurrent with and due to cannabis dependence Additional Impressions: Chronic abdominal pain UTI (urinary tract infection) Qualified Codes: N30.00 - Acute cystitis without hematuria Disposition: 01 HOME, SELF-CARE Condition: Improved Departure-Patient Inst. Decision time for Depature: 13:45 Referrals: [facility] [place] Primary Care Physician AUDREY ELIZABETH (Family) Primary Care Physician LOLY BHATTI DO Patient Instructions: Cannabis Hyperemesis Syndrome, Marijuana Use and Addiction (DC), Urinary Tract Infection, Adult (DC) Add. Discharge Instructions: Follow-up with Dr. Bhatti if your abdominal symptoms are not improving or worsen. Follow-up with your primary care provider for general complaints. Take antibiotics for your urinary tract infection. You may alternate between Tylenol 650 mg every 6-8 hours for pain or discomfort. You will continue to have nausea, vomiting and abdominal problems as long as you are using Marijuana. Please consider visiting with your Primary Care Provider and seeing Mental Health at [facility] or going to Rehab for discontinuing marijuana. Return to the emergency department for new, urgent healthcare needs. All discharge instructions reviewed with patient and/or family. Voiced understanding. Scripts Nitrofurantoin Macrocrystal (Nitrofurantoin) 100 Mg Capsule 100 MG PO BID, #14 CAP 0 Refills Prov: CHRISTIANO ALANIZ 03/14/21 Copy Copies To 1: ANNE BYRD AMY ARNP Mar 14, 2021 14:10
== END 2021-03-14 14:23 | disposition home or self-care (01) ==
LOC: EDUNIT# 10:29 → ER 10:30
DX: R11.2 Nausea with vomiting, unspecified (principal); F12.288 Cannabis dependence with other cannabis-induced disorder; N30.00 Acute cystitis without hematuria; G89.29 Other chronic pain; R10.9 Unspecified abdominal pain; I10 Essential (primary) hypertension; K21.9 Gastro-esophageal reflux disease without esophagitis; J45.909 Unspecified asthma, uncomplicated; Z85.42 Personal history of malignant neoplasm of other parts of uterus; Z90.710 Acquired absence of both cervix and uterus; Z90.49 Acquired absence of other specified parts of digestive tract; Z90.722 Acquired absence of ovaries, bilateral; Z79.899 Other long term (current) drug therapy
CPT/HCPCS: 80053; 80306; 81000; 85025; 87088; 99284; G0480; 36415; 80320

== ENCOUNTER 2021-04-07 11:51 | Emergency (ER) | payer SELFPAY ==
[~2021-04-07] VITALS: Ht 167.7 cm; Wt 81.6 kg
[~2021-04-07 11:51] MED LIST changes: -DULO60CA6 PO; +DULO60CA7 PO
[2021-04-07] MEDS ORDERED: LACTATED RINGERS 1,000 ML IV SCH ×2 (12:15→13:30)
--- NOTE | 2021-04-07 12:31 | ED Abdominal Pain ---
General Chief Complaint: Abdominal/GI Problems Stated Complaint: NV Source of Information: Patient Exam Limitations: No Limitations History of Present Illness Date Seen by Provider: Apr 07, 2021 Time Seen by Provider: 12:30 Initial Comments To ER with recurrent nausea vomiting abdominal pain. This began this morning at about 4 AM. History of multiple ER visits for hyperemesis cannabinoid syndrome. However she states that she has not had any marijuana in 3 months. Timing/Duration: 1-2 Days Severity/Quality: Cramping Location: Generalized Abdomen Radiation: No Radiation Activities at Onset: None Associated Symptoms: Nausea/Vomiting Allergies and Home Medications Allergies Coded Allergies: morphine (Verified Allergy, Unknown, CAUSES "REBOUND HEADACHES", 12/13/20) PT HAS RECEIVED LORTAB & OXYCODONE IN THE PAST baclofen (Verified Adverse Reaction, Severe, 12/13/20) PATIENT UNAWARE OF REACTION BUT WAS HOSPITALIZED AFTER TAKING MEDICATION AND WAS TOLD IT WAS A REACTION DUE TO THE MEDICATION SHE TOOK. meloxicam (Verified Adverse Reaction, Severe, 12/13/20) PATIENT UNAWARE OF REACTION BUT WAS HOSPITALIZED AFTER TAKING MEDICATION AND WAS TOLD IT WAS A REACTION DUE TO THE MEDICATION SHE TOOK. NSAIDS (Non-Steroidal Anti-Inflamma (Verified Adverse Reaction, Mild, have IBS and avoid NSAIDS, 12/13/20) Patient Home Medication List Home Medication List Reviewed: Yes Amlodipine Besylate (Amlodipine Besylate) 5 Mg Tablet, 5 MG PO DAILY Prescribed by: KRYSTIN RAMOS on 03/01/21 1209 Dicyclomine HCl (Dicyclomine HCl) 20 Mg Tablet, 20 MG PO QID, (Reported) Entered as Reported by: ZAIRA ARCHER on 02/28/21 1459 Lisinopril (Lisinopril) 40 Mg Tablet, 40 MG PO DAILY Prescribed by: KRYSTIN RAMOS on 03/01/21 1209 Metoprolol Succinate (Metoprolol Succinate) 100 Mg Tab.er.24h, 100 MG PO DAILY, (Reported) Entered as Reported by: ZAIRA ARCHER on 02/28/21 1459 Nitrofurantoin Macrocrystal (Nitrofurantoin) 100 Mg Capsule, 100 MG PO BID Prescribed by: CHRISTIANO ALANIZ on 03/14/21 1407 Omeprazole (Omeprazole) 20 Mg Capsule.dr, 20 MG PO DAILY, (Reported) Entered as Reported by: ZAIRA ARCHER on 02/28/21 1459 Ondansetron (Ondansetron Odt) 8 Mg Tab.rapdis, 8 MG PO Q6H Prescribed by: CHANTEL MAYORGA on 03/13/21 1523 Pantoprazole Sodium (Protonix) 40 Mg Tablet.dr, 40 MG PO DAILY Prescribed by: CHANTEL MAYORGA on 03/13/21 1523 Sucralfate (Sucralfate) 1 Gm Tablet, 1 GM PO BID, (Reported) Entered as Reported by: YOEL GEORGES on 09/19/20 1353 Sumatriptan Succinate (Sumatriptan Succinate) 100 Mg Tablet, 100 MG PO DAILY PRN for MIGRAINE, (Reported) Entered as Reported by: ZAIRA ARCHER on 08/25/20 0943 Review of Systems Review of Systems Constitutional: see HPI EENTM: No Symptoms Reported Respiratory: No Symptoms Reported Cardiovascular: No Symptoms Reported Gastrointestinal: See HPI, Abdominal Pain, Nausea Genitourinary: No Symptoms Reported Musculoskeletal: no symptoms reported Skin: no symptoms reported Psychiatric/Neurological: No Symptoms Reported Endocrine: No Symptoms Reported Hematologic/Lymphatic: No Symptoms Reported Past Yuikcvg-Vyhofq-Bjytyz Hx Immunizations Up To Date Tetanus Booster (TDap): Unknown PED Vaccines UTD: No Seasonal Allergies Seasonal Allergies: No Past Medical History Surgery/Hospitalization HX: TONSILLECTOMY HYSTERECTOMY BILATERAL TUBAL LIGATION CHOLECYSTECTOMY LAPAROSCOPY 09/19/[address] BHATTI FOR INTUSSUCEPTION EGD'S--LAST ONE 01/16/[address] BHATTI--SHOWED GASTRITIS, SMALL HIATAL. 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 Sexually Transmitted Disease: Yes (HPV) HIV/AIDS: No Genitourinary: Yes Bladder Infection Gastrointestinal: Yes (History of cyclic vomiting and cannabis hypere mesis;CHRONIC N/V/ABD PAIN ) Gastroesophageal Reflux, Diverticulosis, Esophagitis, Hiatal Hernia, Gall Bladder Disease Musculoskeletal: Yes Chronic Back Pain Endocrine: No HEENT: Yes (POOR DENTITION) Loss of Vision: Denies Hearing Impairment: Denies Cancer: Yes Uterine Psychosocial: Yes (THC USE) Anxiety, Depression Integumentary: No Blood Disorders: No Adverse Reaction/Blood Tranf: No Family Medical History Diabetes mellitus 19 FATHER FHx: brain tumor 19 MOTHER HPV infection G8 SISTER No Family History of: AIDS Abdominal aortic aneurysm [place]'s disease Alcoholism Alzheimer's disease Aphasia Arthritis Asthma Cancer of mouth Cardiovascular disease Cataracts Colon cancer Completed stroke Congenital disease Congenital heart disease Coronary thrombosis Cystic fibrosis Deafness or hearing loss Dementia Drug abuse Dysphasia Fibrocystic disease of breast Gastroenteritis Glaucoma Headache disorder Hypercholesterolemia Hypertension Infertility Kidney disease Myocardial infarction Neoplasm Not obtainable due to adoption Osteoporosis Parkinson's disease Prostate cancer Psychosocial problem Respiratory disorder Seizure disorder Severe allergy Thyroid disease Tuberculosis Visual disorder Heart Disease, Hypertension PAST SURGICAL HISTORY: -09/20/20--LAPAROSCOPY FOR INTUSSCEPTION BY DR. BHATTI -08/24/20 --EGD/COLONOSCOPY--DX GASTRITIS/ESOPHAGITIS -01/16/21--EGD BY DR. BHATTI--DX GASTRITIS/ESOPHAGITIS/SMALL HIATAL HERNIA -CHOLECYSTECTOMY -BILATERAL TUBAL LIGATION -HYSTERECTOMY/BILATERAL SALPINGO-OOPHORECTOMY 2005 -BLADDER SLING/LATER REMOVED -CARDIAC CATH 2012--NORMAL Physical Exam Vital Signs Vital Signs - First Documented 04/07/21 12:15 Temp 36.3 Pulse 111 Resp 22 B/P (MAP) 178/99 (125) Pulse Ox 96 O2 Delivery Room Air Capillary Refill : Height/Weight/BMI Height: 5'6.00" Weight: 203lbs. 6.4oz. 92.795043zb; 28.00 BMI Method:Stated General Appearance: WD/WN, no apparent distress HEENT: PERRL/EOMI, normal ENT inspection Respiratory: no respiratory distress, no accessory muscle use Gastrointestinal: normal bowel sounds, soft, tenderness Extremities: normal range of motion, non-tender Neurologic/Psychiatric: alert, normal mood/affect, oriented x 3 Skin: normal color, warm/dry Progress/Results/Core Measures Results/Orders Lab Results Laboratory Tests Test 04/07/21 12:30 04/07/21 14:20 Range/Units White Blood Count 12.4 H 4.3-11.0 10^3/uL Red Blood Count 4.81 3.80-5.11 10^6/uL Hemoglobin 12.8 11.5-16.0 g/dL Hematocrit 40 35-52 % Mean Corpuscular Volume 82 80-99 fL Mean Corpuscular Hemoglobin 27 25-34 pg Mean Corpuscular Hemoglobin Concent 32 32-36 g/dL Red Cell Distribution Width 16.3 H 10.0-14.5 % Platelet Count 469 H 130-400 10^3/uL Mean Platelet Volume 9.5 9.0-12.2 fL Immature Granulocyte % (Auto) 1 % Neutrophils (%) (Auto) 88 H 42-75 % Lymphocytes (%) (Auto) 8 L 12-44 % Monocytes (%) (Auto) 4 0-12 % Eosinophils (%) (Auto) 0 0-10 % Basophils (%) (Auto) 0 0-10 % Neutrophils # (Auto) 10.9 H 1.8-7.8 10^3/uL Lymphocytes # (Auto) 1.0 1.0-4.0 10^3/uL Monocytes # (Auto) 0.5 0.0-1.0 10^3/uL Eosinophils # (Auto) 0.0 0.0-0.3 10^3/uL Basophils # (Auto) 0.0 0.0-0.1 10^3/uL Immature Granulocyte # (Auto) 0.1 0.0-0.1 10^3/uL Neutrophils % (Manual) 83 % Lymphocytes % (Manual) 13 % Monocytes % (Manual) 2 % Eosinophils % (Manual) 0 % Basophils % (Manual) 0 % Band Neutrophils 2 % Blood Morphology Comment NORMAL Sodium Level 142 135-145 MMOL/L Potassium Level 3.4 L 3.6-5.0 MMOL/L Chloride Level 102 98-107 MMOL/L Carbon Dioxide Level 22 21-32 MMOL/L Anion Gap 18 H 5-14 MMOL/L Blood Urea Nitrogen 6 L 7-18 MG/DL Creatinine 0.88 0.60-1.30 MG/DL Estimat Glomerular Filtration Rate 70 BUN/Creatinine Ratio 7 Glucose Level 127 H 70-105 MG/DL Calcium Level 10.1 8.5-10.1 MG/DL Corrected Calcium 9.9 8.5-10.1 MG/DL Total Bilirubin 0.3 0.1-1.0 MG/DL Aspartate Amino Transf (AST/SGOT) 17 5-34 U/L Alanine Aminotransferase (ALT/SGPT) 16 0-55 U/L Alkaline Phosphatase 98 40-136 U/L Total Protein 7.8 6.4-8.2 GM/DL Albumin 4.3 3.2-4.5 GM/DL Lipase 40 8-78 U/L Serum Test, Qualitative NEGATIVE NEGATIVE Serum Alcohol < 10 <10 MG/DL Urine Color YELLOW Urine Clarity CLEAR Urine pH 7.5 5-9 Urine Specific [place] 1.020 1.016-1.022 Urine Protein TRACE H NEGATIVE Urine Glucose (UA) NEGATIVE NEGATIVE Urine Ketones 1+ H NEGATIVE Urine Nitrite NEGATIVE NEGATIVE Urine Bilirubin NEGATIVE NEGATIVE Urine Urobilinogen 0.2 < = 1.0 MG/DL Urine Leukocyte Esterase NEGATIVE NEGATIVE Urine RBC (Auto) NEGATIVE NEGATIVE Urine RBC NONE /HPF Urine WBC 0-2 /HPF Urine Squamous Epithelial Cells 2-5 /HPF Urine Crystals NONE /LPF Urine Bacteria FEW H /HPF Urine Casts NONE /LPF Urine Mucus SMALL H /LPF Urine Culture Indicated NO Urine Opiates Screen NEGATIVE NEGATIVE Urine Oxycodone Screen NEGATIVE NEGATIVE Urine Methadone Screen NEGATIVE NEGATIVE Urine Propoxyphene Screen NEGATIVE NEGATIVE Urine Barbiturates Screen NEGATIVE NEGATIVE Ur Tricyclic Antidepressants Screen NEGATIVE NEGATIVE Urine Phencyclidine Screen NEGATIVE NEGATIVE Urine Amphetamines Screen NEGATIVE NEGATIVE Urine Methamphetamines Screen NEGATIVE NEGATIVE Urine Benzodiazepines Screen NEGATIVE NEGATIVE Urine Cocaine Screen NEGATIVE NEGATIVE Urine Cannabinoids Screen POSITIVE H NEGATIVE My Orders Orders - FAMILIA ELISE APRN Cbc With Automated Diff (04/07/21 12:14) Comprehensive Metabolic Panel (04/07/21 12:14) Lipase (04/07/21 12:14) Ua Culture If Indicated (04/07/21 12:14) Drug Screen Stat (Urine) (04/07/21 12:14) Hcg,Qualitative Serum (04/07/21 12:14) Ed Iv/Invasive Line Start (04/07/21 12:14) Lactated Ringers (Lr 1000 Ml Iv Solution (04/07/21 12:15) Ekg Tracing (04/07/21 12:14) Manual Differential (04/07/21 12:30) Droperidol Inj (Ed Only) (Inapsine Inj ( (04/07/21 13:00) Alcohol (04/07/21 13:10) Lactated Ringers (Lr 1000 Ml Iv Solution (04/07/21 13:30) Medications Given in ED Current Medications Medications Dose Ordered Sig/Judi Route Start Time Stop Time Status Last Admin Dose Admin Droperidol 2.5 mg ONCE ONCE IV 04/07/21 13:00 04/07/21 13:01 DC 04/07/21 12:53 2.5 MG Vital Signs/I&O 04/07/21 12:15 Temp 36.3 Pulse 111 Resp 22 B/P (MAP) 178/99 (125) Pulse Ox 96 O2 Delivery Room Air Departure Impression Primary Impression: Cyclical vomiting syndrome Disposition: HOME, SELF-CARE Condition: Improved Departure-Patient Inst. Decision time for Depature: 13:44 Referrals: [facility] (PCP) Primary Care Physician AUDREY ELIZABETH (Family) Primary Care Physician Patient Instructions: Nausea and Vomiting, Adult ED FAMILIA ELISE [employer]CE [employer]IATION EQUIPMENT TENDER Apr 07, 2021 12:31
[2021-04-07 12:38] LABS: BASOPHILS % (AUTO) 0 % (0-10); EOSINOPHILS % (AUTO) 0 % (0-10); HEMATOCRIT 40 % (35-52); HEMOGLOBIN 12.8 g/dL (11.5-16.0); LYMPHOCYTES % (AUTO) 8 % (12-44); MEAN CORPUSCULAR HEMOGLOBIN 27 pg (25-34); MEAN CORPUSCULAR HGB CONC 32 g/dL (32-36); MEAN CORPUSCULAR VOLUME 82 fL (80-99); MEAN PLATELET VOLUME 9.5 fL (9.0-12.2); MONOCYTES # (AUTO) 0.5 10^3/uL (0.0-1.0); MONOCYTES % (AUTO) 4 % (0-12); NEUTROPHILS # (AUTO) 10.9 10^3/uL (1.8-7.8); NEUTROPHILS % (AUTO) 88 % (42-75); PLATELET COUNT 469 10^3/uL (130-400); WHITE BLOOD COUNT 12.4 10^3/uL (4.3-11.0)
[2021-04-07] MEDS ORDERED: DROPERIDOL 5 MG/2 ML (INAPSINE) ED ONLY! IV ONE (13:00)
[2021-04-07 13:01] LABS: ALBUMIN 4.3 GM/DL (3.2-4.5); BILIRUBIN,TOTAL 0.3 MG/DL (0.1-1.0); CALCIUM 10.1 MG/DL (8.5-10.1); CREATININE SERUM 0.88 MG/DL (0.60-1.30); POTASSIUM 3.4 MMOL/L (3.6-5.0); TOTAL PROTEIN 7.8 GM/DL (6.4-8.2)
[2021-04-07 13:24] LABS: BAND NEUTROPHILS 2 %; BASOPHILS % (MANUAL) 0 %; EOSINOPHILS % (MANUAL) 0 %; LYMPHOCYTES % (MANUAL) 13 %; MONOCYTES % (MANUAL) 2 %; NEUTROPHILS % (MANUAL) 83 %; RBC MORPH NORMAL
[2021-04-07 14:31] LABS: BILIRUBIN,URINE NEGATIVE (NEGATIVE); CLARITY,URINE CLEAR; COLOR,URINE YELLOW; GLUCOSE, URINE (UA) NEGATIVE (NEGATIVE); KETONES,URINE 1+ (NEGATIVE); LEUKOCYTE ESTERASE ,URINE NEGATIVE (NEGATIVE); NITRITE,URINE NEGATIVE (NEGATIVE); PH,URINE 7.5 (5-9); PROTEIN,URINE TRACE (NEGATIVE)
[2021-04-07 14:43] LABS: BACTERIA,URINE FEW /HPF; WBC,URINE 0-2 /HPF
[2021-04-07 14:44] LABS: AMPHETAMINE SCREEN, URINE NEGATIVE (NEGATIVE); BARBITURATE SCREEN URINE NEGATIVE (NEGATIVE); BENZODIAZEPINES SCREEN URINE NEGATIVE (NEGATIVE); CANNABINOID SCREEN, URINE POSITIVE (NEGATIVE); COCAINE SCREEN URINE NEGATIVE (NEGATIVE); METHADONE STAT NEGATIVE (NEGATIVE); METHAMPHETAMINE SCREEN URINE S NEGATIVE (NEGATIVE); OPIATE SCREEN URINE NEGATIVE (NEGATIVE); OXYCODONE STAT NEGATIVE (NEGATIVE); PROPOXYPHENE STAT NEGATIVE (NEGATIVE); TRICYCLIC ANTIDEPRESSANTS SCRE NEGATIVE (NEGATIVE)
[2021-04-07 14:58] VITALS: BP 162/98
[2021-04-07] MEDS ORDERED: SUCR1TAB36 PO (23:47)
[2021-04-07] MEDS ORDERED: PROM25SU44 RC (23:47)
[2021-04-07] MEDS ORDERED: PANT40TA2 PO (23:47)
[2021-04-07] MEDS ORDERED: DICY20TA10 PO (23:47)
[2021-04-07] MEDS ORDERED: ONDA8TAB13 PO (23:47)
== END 2021-04-07 14:58 | disposition home or self-care (01) ==
LOC: EDUNIT# 11:51 → ER 11:54
DX: R11.15 Cyclical vomiting syndrome unrelated to migraine (principal); J45.909 Unspecified asthma, uncomplicated; I10 Essential (primary) hypertension; K21.9 Gastro-esophageal reflux disease without esophagitis; Z79.899 Other long term (current) drug therapy
CPT/HCPCS: 80053; 80306; 81000; 83690; 84703; 85007; 85027; 93005; 99284; G0480; 36415; 80320

== ENCOUNTER 2021-04-07 23:16 | Emergency (ER) | payer SELFPAY ==
[~2021-04-07] VITALS: Ht 168 cm; Wt 81.0 kg
[2021-04-07] MEDS ORDERED: diphenhydrAMINE 50 MG/ML INJ (BENADRYL) IM ONE (23:30)
[2021-04-07] MEDS ORDERED: RX-PHENERGAN 25 MG SUPP PPK#3 PR STA (23:30)
[2021-04-07] MEDS ORDERED: PROMETHAZINE INJ 25 MG/ML (PHENERGAN) AMP IM ONE (23:30)
--- NOTE | 2021-04-07 23:30 | ED GI ---
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 PT HAS BEEN REFERRED TO GI SPECIALISTS MULTIPLE TIMES, AND PT HAS NEVER FOLLOWED UP PT WAS JUST SEEN IN ER THIS AFTER NOON FOR SAME, HAD LAB DONE, WHICH WAS ESSENTIALLY NORMAL, EXCEPT FOR UDS + FOR THC PT WAS GIVEN IV FLUIDS AND INAPSINE PT STATES SHE HAS VOMITED X 4 AND HAD DIARRHEA X 2 SINCE SHE WAS DISMISSED PT STATES SHE TOOK ZOFRAN 20 MINUTES AGO, OTHERWISE HAS NOT TAKEN ANYTHING FOR SYMPTOMS PT STATES SHE LAST URINATED 20 MINUTES PRIOR TO ARRIVAL NO FEVER PT STATES SHE WAS ALSO AT [facility] TODAY FOR THIS PROBLEM AND RECEIVED A SHOT OF UNKNOWN MEDICATION FOR NAUSEA/VOMITING OF NOTE, PT'S FAMILY MEMBER, DAYANARA TYLER, WAS LITERALLY JUST DISMISSED FROM ER FOR CHRONIC GI COMPLAINTS WELL. PT HAS HAD 29 VISITS IN 2020--ALL FOR THIS EXACT SAME COMPLAINT PT HAS HAD EXTENSIVE WORK-UP'S HERE BY MULTIPLE PROVIDERS, WITH MULTIPLE CT SCANS, XRAYS, ETC. WELL EGD PT HAS HAD LARGE AMOUNTS OF NARCOTICS WITH THESE VISITS WELL A MULTITUDE OF GI MEDICATIONS PT HAS BEEN PRESCRIBED OMEPRAZOLE, CARAFATE AND BENTYL, PT STATES SHE IS NOT TAKING THESE MEDICATIONS PT STATES SHE IS NOT TAKING ANY MEDICATIONS OF ANY KIND AT THIS TIME, OTHER THAN ZOFRAN PT CLAIMS SHE HAS "NOT HAD ANY MARIJUANA FOR 3 MONTHS" BUT UDS + FOR THC TODAY THIS VISIT IS EXACTLY THE SAME ALL PRIOR VISITS, AND IS NO DIFFERENT IN ANY WAY NO SICK CONTACTS OR SUSPICIOUS FOODS PT HAS NOT HAD COVID-19 VACCINE PT DOES NOT WORK PT LIVES AT HOME WITH HER SON AND HE IS NOT ILL. PCP: [facility] Allergies and Home Medications Allergies Coded Allergies: morphine (Verified Allergy, Unknown, CAUSES "REBOUND HEADACHES", 12/13/20) PT HAS RECEIVED LORTAB & OXYCODONE IN THE PAST baclofen (Verified Adverse Reaction, Severe, 12/13/20) PATIENT UNAWARE OF REACTION BUT WAS HOSPITALIZED AFTER TAKING MEDICATION AND WAS TOLD IT WAS A REACTION DUE TO THE MEDICATION SHE TOOK. meloxicam (Verified Adverse Reaction, Severe, 12/13/20) PATIENT UNAWARE OF REACTION BUT WAS HOSPITALIZED AFTER TAKING MEDICATION AND WAS TOLD IT WAS A REACTION DUE TO THE MEDICATION SHE TOOK. NSAIDS (Non-Steroidal Anti-Inflamma (Verified Adverse Reaction, Mild, have IBS and avoid NSAIDS, 12/13/20) Patient Home Medication List Amlodipine Besylate (Amlodipine Besylate) 5 Mg Tablet, 5 MG PO DAILY Prescribed by: KRYSTIN RAMOS on 03/01/21 1209 Dicyclomine HCl (Dicyclomine HCl) 20 Mg Tablet, 20 MG PO QID, (Reported) Entered as Reported by: ZAIRA ARCHER on 02/28/21 1459 Lisinopril (Lisinopril) 40 Mg Tablet, 40 MG PO DAILY Prescribed by: KRYSTIN RAMOS on 03/01/21 1209 Metoprolol Succinate (Metoprolol Succinate) 100 Mg Tab.er.24h, 100 MG PO DAILY, (Reported) Entered as Reported by: ZAIRA ARCHER on 02/28/21 1459 Nitrofurantoin Macrocrystal (Nitrofurantoin) 100 Mg Capsule, 100 MG PO BID Prescribed by: CHRISTIANO ALANIZ on 03/14/21 1407 Omeprazole (Omeprazole) 20 Mg Capsule.dr, 20 MG PO DAILY, (Reported) Entered as Reported by: ZAIRA ARCHER on 02/28/21 1459 Ondansetron (Ondansetron Odt) 8 Mg Tab.rapdis, 8 MG PO Q6H Prescribed by: CHANTEL MAYORGA on 03/13/21 1523 Pantoprazole Sodium (Protonix) 40 Mg Tablet.dr, 40 MG PO DAILY Prescribed by: CHANTEL MAYORGA on 03/13/21 1523 Sucralfate (Sucralfate) 1 Gm Tablet, 1 GM PO BID, (Reported) Entered as Reported by: YOEL GEORGES on 09/19/20 1353 Sumatriptan Succinate (Sumatriptan Succinate) 100 Mg Tablet, 100 MG PO DAILY PRN for MIGRAINE, (Reported) Entered as Reported by: ZAIRA ARCHER on 08/25/20 0943 Review of Systems Review of Systems Constitutional: no symptoms reported Respiratory: No Symptoms Reported Cardiovascular: No Symptoms Reported Gastrointestinal: See HPI, Abdominal Pain, Diarrhea, Nausea, Vomiting Genitourinary: No Symptoms Reported Musculoskeletal: no symptoms reported Skin: no symptoms reported Psychiatric/Neurological: No Symptoms Reported Endocrine: No Symptoms Reported Hematologic/Lymphatic: No Symptoms Reported Past Ohtesdk-Poasrn-Aelsqm Hx Patient Social History Substance use?: Yes Substance type: Marijuana Immunizations Up To Date Tetanus Booster (TDap): Unknown PED Vaccines UTD: No Seasonal Allergies Seasonal Allergies: No Past Medical History Surgery/Hospitalization HX: TONSILLECTOMY HYSTERECTOMY BILATERAL TUBAL LIGATION CHOLECYSTECTOMY LAPAROSCOPY 09/19/[address] BHATTI FOR INTUSSUCEPTION EGD'S--LAST ONE 01/16/[address] BHATTI--SHOWED GASTRITIS, SMALL HIATAL. 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 Sexually Transmitted Disease: Yes (HPV) HIV/AIDS: No Genitourinary: Yes Bladder Infection Gastrointestinal: Yes (History of cyclic vomiting and cannabis hyperemesis;CHRONIC N/V/ABD PAIN ) Gastroesophageal Reflux, Diverticulosis, Esophagitis, Hiatal Hernia, Gall Bladder Disease Musculoskeletal: Yes Chronic Back Pain Endocrine: No HEENT: Yes (POOR DENTITION) Loss of Vision: Denies Hearing Impairment: Denies Cancer: Yes Uterine Psychosocial: Yes (THC USE) Anxiety, Depression Integumentary: No Blood Disorders: No Adverse Reaction/Blood Tranf: No Family Medical History Diabetes mellitus 19 FATHER FHx: brain tumor 19 MOTHER HPV infection G8 SISTER No Family History of: AIDS Abdominal aortic aneurysm Sonoma's disease Alcoholism Alzheimer's disease Aphasia Arthritis Asthma Cancer of mouth Cardiovascular disease Cataracts Colon cancer Completed stroke Congenital disease Congenital heart disease Coronary thrombosis Cystic fibrosis Deafness or hearing loss Dementia Drug abuse Dysphasia Fibrocystic disease of breast Gastroenteritis Glaucoma Headache disorder Hypercholesterolemia Hypertension Infertility Kidney disease Myocardial infarction Neoplasm Not obtainable due to adoption Osteoporosis Parkinson's disease Prostate cancer Psychosocial problem Respiratory disorder Seizure disorder Severe allergy Thyroid disease Tuberculosis Visual disorder Heart Disease, Hypertension SOCIAL HISTORY: -SMOKING -ETOH- -DRUGS--CHRONIC MARIJUANA USE PAST SURGICAL HISTORY: -09/20/20--LAPAROSCOPY FOR INTUSSCEPTION BY DR. BHATTI -08/24/20 --EGD/COLONOSCOPY--DX GASTRITIS/ESOPHAGITIS -01/16/21--EGD BY DR. BHATTI--DX GASTRITIS/ESOPHAGITIS/SMALL HIATAL HERNIA -CHOLECYSTECTOMY -BILATERAL TUBAL LIGATION -HYSTERECTOMY/BILATERAL SALPINGO-OOPHORECTOMY 2005 -BLADDER SLING/LATER REMOVED -CARDIAC CATH 2012--NORMAL Physical Exam Vital Signs Vital Signs - First Documented 04/07/21 23:24 Temp 36.8 Pulse 117 Resp 18 B/P (MAP) 154/102 (119) Pulse Ox 97 O2 Delivery Room Air Capillary Refill : Height/Weight/BMI Height: 5'6.00" Weight: 203lbs. 6.4oz. 92.177416ha; 29.00 BMI Method:Stated General Appearance: WD/WN, no apparent distress, other (HARSH, FORCED GAGGING WITH DRY HEAVES. VERY DRAMATIC, ROCKING BACK AND FORTH) HEENT: PERRL/EOMI, other (EDENTULOUS) Neck: normal inspection Respiratory: normal breath sounds, no respiratory distress, no accessory muscle use Cardiovascular: regular rate, rhythm, no murmur Gastrointestinal: normal bowel sounds, soft Extremities: normal inspection, normal capillary refill Neurologic/Psychiatric: no motor/sensory deficits, alert, normal mood/affect, oriented x 3 Skin: normal color, warm/dry, other (SORES/SCARS/SCABS TO FACE) Progress/Results/Core Measures Results/Orders My Orders Orders - CHANTEL MAYORGA DO Promethazine Injection (Phenergan Injec (04/07/21 23:30) Diphenhydramine Injection (Benadryl Inje (04/07/21 23:30) Rx-Promethazine Hcl (Rx-Phenergan Supp) (04/07/21 23:30) Vital Signs/I&O 04/07/21 23:24 Temp 36.8 Pulse 117 Resp 18 B/P (MAP) 154/102 (119) Pulse Ox 97 O2 Delivery Room Air Progress Progress Note : Progress Note GIVEN PHENERGAN + BENADRYL IM Departure Impression Primary Impression: Cannabis hyperemesis syndrome concurrent with and due to cannabis dependence Disposition: 01 HOME, SELF-CARE Condition: Stable Departure-Patient Inst. Decision time for Depature: 23:45 Referrals: [facility] (PCP) Primary Care Physician AUDREY ELIZABETH (Family) Primary Care Physician Patient Instructions: Cannabis Hyperemesis Syndrome Add. Discharge Instructions: CLEAR LIQUIDS--WATER, BROTH, JELLO, GATORADE TOMORROW IF YOU ARE BETTER, ADD BRATS DIET TO CLEAR LIQUIDS NO MARIJUANA !!!!!! TAKE YOUR PRESCRIBED MEDICATIONS INSTRUCTED FOLLOW UP WITH [facility] TOMORROW IF NO BETTER Scripts Dicyclomine HCl (Dicyclomine HCl) 20 Mg Tablet 20 MG PO Q6H for Abdominal Pain, #20 TAB Prov: CHANTEL MAYORGA DO 04/07/21 Sucralfate (Carafate) 1 Gm Tablet 1 GM PO QID, #60 TAB Prov: MUKESHCHANTEL K DO 04/07/21 Pantoprazole Sodium (Protonix) 40 Mg Tablet.dr 40 MG PO DAILY, #15 TAB Prov: CHANTEL MAYORGA DO 04/07/21 Ondansetron (Ondansetron Odt) 8 Mg Tab.rapdis 8 MG PO Q4H PRN for NAUSEA/VOMITING, #10 TAB Prov: MUKESHKIANAA K DO 04/07/21 Promethazine HCl (Promethazine Suppository) 25 Mg Supp.rect 25 MG RC Q6 for Nausea/Vomiting, #10 SUPP.RECT Prov: CHANTEL MAYORGA DO 04/07/21 MUKESHCHANTEL K DO Apr 07, 2021 23:30
[2021-04-07] MEDS ORDERED: SUCR1TAB36 PO (23:47)
[2021-04-07] MEDS ORDERED: PROM25SU44 RC (23:47)
[2021-04-07] MEDS ORDERED: PANT40TA2 PO (23:47)
[2021-04-07] MEDS ORDERED: ONDA8TAB13 PO (23:47)
[2021-04-07] MEDS ORDERED: DICY20TA10 PO (23:47)
[2021-04-08 00:10] VITALS: BP 151/103
== END 2021-04-08 00:09 | disposition home or self-care (01) ==
LOC: EDUNIT# 23:16 → ER 23:19
DX: R11.2 Nausea with vomiting, unspecified (principal); F12.20 Cannabis dependence, uncomplicated; J45.909 Unspecified asthma, uncomplicated; I10 Essential (primary) hypertension; K21.9 Gastro-esophageal reflux disease without esophagitis; Z79.899 Other long term (current) drug therapy
CPT/HCPCS: 99284

== ENCOUNTER 2021-04-12 11:16 | Emergency (ER) | payer SELFPAY ==
[~2021-04-12] VITALS: Ht 167.4 cm; Wt 81.8 kg
[~2021-04-12 11:16] MED LIST changes: +SUCR1TAB36 PO
--- NOTE | 2021-04-12 11:33 | ED Abdominal Pain ---
General Stated Complaint: N/V Source of Information: Patient Exam Limitations: No Limitations History of Present Illness Date Seen by Provider: Apr 12, 2021 Time Seen by Provider: 11:31 Initial Comments ER to ER with recurrent nausea vomiting and abdominal pain. She has a history of hyperemesis cannabinoid syndrome with 22 visits this year. She was quest ioned about when she smoked last to which she replies several times "I have not". When asked when the last time that she used marijuana was she states "I use edibles now". I discussed with her this did not make any difference. Timing/Duration: 1-2 Days Severity/Quality: Moderate Location: Generalized Abdomen Radiation: No Radiation Activities at Onset: None Associated Symptoms: Nausea/Vomiting Allergies and Home Medications Allergies Coded Allergies: morphine (Verified Allergy, Unknown, CAUSES "REBOUND HEADACHES", 12/13/20) PT HAS RECEIVED LORTAB & OXYCODONE IN THE PAST baclofen (Verified Adverse Reaction, Severe, 12/13/20) PATIENT UNAWARE OF REACTION BUT WAS HOSPITALIZED AFTER TAKING MEDICATION AND WAS TOLD IT WAS A REACTION DUE TO THE MEDICATION SHE TOOK. meloxicam (Verified Adverse Reaction, Severe, 12/13/20) PATIENT UNAWARE OF REACTION BUT WAS HOSPITALIZED AFTER TAKING MEDICATION AND WAS TOLD IT WAS A REACTION DUE TO THE MEDICATION SHE TOOK. NSAIDS (Non-Steroidal Anti-Inflamma (Verified Adverse Reaction, Mild, have IBS and avoid NSAIDS, 12/13/20) Patient Home Medication List Home Medication List Reviewed: Yes Amlodipine Besylate (Amlodipine Besylate) 5 Mg Tablet, 5 MG PO DAILY Prescribed by: KRYSTIN RAMOS on 03/01/21 1209 Dicyclomine HCl (Dicyclomine HCl) 20 Mg Tablet, 20 MG PO QID, (Reported) Entered as Reported by: ZAIRA ARCHER on 02/28/21 1459 Dicyclomine HCl (Dicyclomine HCl) 20 Mg Tablet, 20 MG PO Q6H Prescribed by: CHANTEL MAYORGA on 04/07/21 2527 Lisinopril (Lisinopril) 40 Mg Tablet, 40 MG PO DAILY Prescribed by: KRYSTIN RAMOS on 03/01/21 1209 Metoprolol Succinate (Metoprolol Succinate) 100 Mg Tab.er.24h, 100 MG PO DAILY, (Reported) Entered as Reported by: ZAIRA ARCHER on 02/28/21 1459 Nitrofurantoin Macrocrystal (Nitrofurantoin) 100 Mg Capsule, 100 MG PO BID Prescribed by: CHRISTIANO ALANIZ on 03/14/21 1407 Omeprazole (Omeprazole) 20 Mg Capsule.dr, 20 MG PO DAILY, (Reported) Entered as Reported by: ZAIRA ARCHER on 02/28/21 1459 Ondansetron (Ondansetron Odt) 8 Mg Tab.rapdis, 8 MG PO Q6H Prescribed by: CHANTEL MAYORGA on 03/13/21 1523 Ondansetron (Ondansetron Odt) 8 Mg Tab.rapdis, 8 MG PO Q4H PRN for NAUSEA/VOMITING Prescribed by: CHANTEL MAYORGA on 04/07/21 2347 Pantoprazole Sodium (Protonix) 40 Mg Tablet.dr, 40 MG PO DAILY Prescribed by: CHANTEL MAYORGA on 03/13/21 152 Pantoprazole Sodium (Protonix) 40 Mg Tablet.dr, 40 MG PO DAILY Prescribed by: CHANTEL MAYORGA on 04/07/21 2347 Promethazine HCl (Promethazine Suppository) 25 Mg Supp.rect, 25 MG RC Q6 Prescribed by: CHANTEL MAYORGA on 04/07/21 2347 Sucralfate (Sucralfate) 1 Gm Tablet, 1 GM PO BID, (Reported) Entered as Reported by: YOEL GEORGES on 09/19/20 1353 Sucralfate (Carafate) 1 Gm Tablet, 1 GM PO QID Prescribed by: CHANTEL MAYORGA on 04/07/21 2347 Sumatriptan Succinate (Sumatriptan Succinate) 100 Mg Tablet, 100 MG PO DAILY PRN for MIGRAINE, (Reported) Entered as Reported by: ZAIRA ARCHER on 08/25/20 0943 Review of Systems Review of Systems Constitutional: see HPI EENTM: No Symptoms Reported Respiratory: No Symptoms Reported Gastrointestinal: See HPI, Abdominal Pain Genitourinary: No Symptoms Reported Musculoskeletal: no symptoms reported Skin: no symptoms reported Psychiatric/Neurological: No Symptoms Reported Endocrine: No Symptoms Reported Hematologic/Lymphatic: No Symptoms Reported Past Yzyhqdf-Wvkxem-Kvkhuz Hx Immunizations Up To Date Tetanus Booster (TDap): Unknown PED Vaccines UTD: No First/Initial COVID19 Vaccinat: n/a Seasonal Allergies Seasonal Allergies: No Past Medical History Surgery/Hospitalization HX: TONSILLECTOMY HYSTERECTOMY BILATERAL TUBAL LIGATION CHOLECYSTECTOMY LAPAROSCOPY 09/19/[address] BHATTI FOR INTUSSUCEPTION EGD'S--LAST ONE 01/16/[address] BHATTI--SHOWED GASTRITIS, SMALL HIATAL. 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 Sexually Transmitted Disease: Yes (HPV) HIV/AIDS: No Genitourinary: Yes Bladder Infection Gastrointestinal: Yes (History of cyclic vomiting and cannabis hyperemesis;CHRONIC N/V/ABD PAIN ) Gastroesophageal Reflux, Diverticulosis, Esophagitis, Hiatal Hernia, Gall Bladder Disease Musculoskeletal: Yes Chronic Back Pain Endocrine: No HEENT: Yes (POOR DENTITION) Loss of Vision: Denies Hearing Impairment: Denies Cancer: Yes Uterine Psychosocial: Yes (THC USE) Anxiety, Depression Integumentary: No Blood Disorders: No Adverse Reaction/Blood Tranf: No Family Medical History Diabetes mellitus 19 FATHER FHx: brain tumor 19 MOTHER HPV infection G8 SISTER No Family History of: AIDS Abdominal aortic aneurysm Stevens's disease Alcoholism Alzheimer's disease Aphasia Arthritis Asthma Cancer of mouth Cardiovascular disease Cataracts Colon cancer Completed stroke Congenital disease Congenital heart disease Coronary thrombosis Cystic fibrosis Deafness or hearing loss Dementia Drug abuse Dysphasia Fibrocystic disease of breast Gastroenteritis Glaucoma Headache disorder Hypercholesterolemia Hypertension Infertility Kidney disease Myocardial infarction Neoplasm Not obtainable due to adoption Osteoporosis Parkinson's disease Prostate cancer Psychosocial problem Respiratory disorder Seizure disorder Severe allergy Thyroid disease Tuberculosis Visual disorder Heart Disease, Hypertension SOCIAL HISTORY: -SMOKING -ETOH- -DRUGS--CHRONIC MARIJUANA USE PAST SURGICAL HISTORY: -09/20/20--LAPAROSCOPY FOR INTUSSCEPTION BY DR. BHATTI -08/24/20 --EGD/COLONOSCOPY--DX GASTRITIS/ESOPHAGITIS -01/16/21--EGD BY DR. BHATTI--DX GASTRITIS/ESOPHAGITIS/SMALL HIATAL HERNIA -CHOLECYSTECTOMY -BILATERAL TUBAL LIGATION -HYSTERECTOMY/BILATERAL SALPINGO-OOPHORECTOMY 2005 -BLADDER SLING/LATER REMOVED -CARDIAC CATH 2012--NORMAL Physical Exam Vital Signs Vital Signs - First Documented 04/12/21 11:22 Temp 35.8 Pulse 127 Resp 18 B/P (MAP) 155/100 (118) Pulse Ox 64 O2 Delivery Room Air Capillary Refill : Height/Weight/BMI Height: 5'6.00" Weight: 203lbs. 6.4oz. 92.767919pe; 28.00 BMI Method:Stated General Appearance: WD/WN, no apparent distress, other (Tachycardic. Coffee- ground emesis.) Respiratory: no respiratory distress, no accessory muscle use Cardiovascular: no murmur, tachycardia Gastrointestinal: normal bowel sounds, soft, tenderness Extremities: normal range of motion, non-tender Neurologic/Psychiatric: alert, normal mood/affect, oriented x 3 Skin: normal color, warm/dry Focused Exam Lactate Level 04/12/21 13:04: Lactic Acid Level 2.54*H 04/12/21 16:25: Lactic Acid Level 1.95 Lactic Acid Level Laboratory Tests Test 04/12/21 13:04 04/12/21 16:25 Lactic Acid Level 2.54 MMOL/L (0.50-2.00) *H 1.95 MMOL/L (0.50-2.00) Progress/Results/Core Measures Results/Orders Lab Results Laboratory Tests Test 04/12/21 11:30 04/12/21 13:04 04/12/21 14:58 04/12/21 15:48 Range/Units White Blood Count 18.0 H 4.3-11.0 10^3/uL Red Blood Count 6.00 H 3.80-5.11 10^6/uL Hemoglobin 15.9 # 11.5-16.0 g/dL Hematocrit 49 35-52 % Mean Corpuscular Volume 82 80-99 fL Mean Corpuscular Hemoglobin 27 25-34 pg Mean Corpuscular Hemoglobin Concent 32 32-36 g/dL Red Cell Distribution Width 16.4 H 10.0-14.5 % Platelet Count 651 H 130-400 10^3/uL Mean Platelet Volume 9.5 9.0-12.2 fL Immature Granulocyte % (Auto) 1 % Neutrophils (%) (Auto) 91 H 42-75 % Lymphocytes (%) (Auto) 6 L 12-44 % Monocytes (%) (Auto) 3 0-12 % Eosinophils (%) (Auto) 0 0-10 % Basophils (%) (Auto) 0 0-10 % Neutrophils # (Auto) 16.3 H 1.8-7.8 10^3/uL Lymphocytes # (Auto) 1.0 1.0-4.0 10^3/uL Monocytes # (Auto) 0.6 0.0-1.0 10^3/uL Eosinophils # (Auto) 0.0 0.0-0.3 10^3/uL Basophils # (Auto) 0.0 0.0-0.1 10^3/uL Immature Granulocyte # (Auto) 0.1 0.0-0.1 10^3/uL Neutrophils % (Manual) 96 % Lymphocytes % (Manual) 3 % Monocytes % (Manual) 1 % Eosinophils % (Manual) 0 % Basophils % (Manual) 0 % Band Neutrophils 0 % Blood Morphology Comment NORMAL Sodium Level 137 140 135-145 MMOL/L Potassium Level 3.2 L 3.0 L 3.6-5.0 MMOL/L Chloride Level 87 L 92 L 98-107 MMOL/L Carbon Dioxide Level 21 28 21-32 MMOL/L Anion Gap 29 H 20 H 5-14 MMOL/L Blood Urea Nitrogen 26 H 23 H 7-18 MG/DL Creatinine 1.69 H 1.16 0.60-1.30 MG/DL Estimat Glomerular Filtration Rate 33 51 BUN/Creatinine Ratio 15 20 Glucose Level 290 H 136 H 70-105 MG/DL Calcium Level 10.3 H 9.5 8.5-10.1 MG/DL Corrected Calcium 8.5-10.1 MG/DL Total Bilirubin 0.6 0.1-1.0 MG/DL Aspartate Amino Transf (AST/SGOT) 56 H 5-34 U/L Alanine Aminotransferase (ALT/SGPT) 65 H 0-55 U/L Alkaline Phosphatase 121 40-136 U/L Total Protein 8.3 H 6.4-8.2 GM/DL Albumin 4.6 H 3.2-4.5 GM/DL Lipase 70 8-78 U/L Procalcitonin 0.18 H <0.10 NG/ML Serum Test, Qualitative NEGATIVE NEGATIVE Serum Alcohol < 10 <10 MG/DL Lactic Acid Level 2.54 *H 0.50-2.00 MMOL/L Urine Color YELLOW Urine Clarity CLEAR Urine pH 6.0 5-9 Urine Specific [place] >=1.030 1.016-1.022 Urine Protein 1+ H NEGATIVE Urine Glucose (UA) NEGATIVE NEGATIVE Urine Ketones 2+ H NEGATIVE Urine Nitrite NEGATIVE NEGATIVE Urine Bilirubin 3+ H NEGATIVE Urine Urobilinogen 1.0 < = 1.0 MG/DL Urine Leukocyte Esterase NEGATIVE NEGATIVE Urine RBC (Auto) NEGATIVE NEGATIVE Urine RBC NONE /HPF Urine WBC 5-10 H /HPF Urine Squamous Epithelial Cells 2-5 /HPF Urine Renal Epithelial Cells NONE /HPF Urine Crystals NONE /LPF Urine Bacteria LARGE H /HPF Urine Casts PRESENT /LPF Urine Hyaline Casts 10-25 H /LPF Urine Mucus NEGATIVE /LPF Urine Culture Indicated YES Urine Opiates Screen NEGATIVE NEGATIVE Urine Oxycodone Screen NEGATIVE NEGATIVE Urine Methadone Screen NEGATIVE NEGATIVE Urine Propoxyphene Screen NEGATIVE NEGATIVE Urine Barbiturates Screen NEGATIVE NEGATIVE Ur Tricyclic Antidepressants Screen NEGATIVE NEGATIVE Urine Phencyclidine Screen NEGATIVE NEGATIVE Urine Amphetamines Screen NEGATIVE NEGATIVE Urine Methamphetamines Screen NEGATIVE NEGATIVE Urine Benzodiazepines Screen NEGATIVE NEGATIVE Urine Cocaine Screen NEGATIVE NEGATIVE Urine Cannabinoids Screen POSITIVE H NEGATIVE Test 04/12/21 16:25 Range/Units Lactic Acid Level 1.95 0.50-2.00 MMOL/L My Orders Orders - FAMILIA ELISE APRN Cbc With Automated Diff (04/12/21 11:30) Comprehensive Metabolic Panel (04/12/21 11:30) Lipase (04/12/21 11:30) Hcg,Qualitative Serum (04/12/21 11:30) Ekg Tracing (04/12/21 11:30) Ed Iv/Invasive Line Start (04/12/21 11:30) Lactated Ringers (Lr 1000 Ml Iv Solution (04/12/21 11:30) Drug Screen Stat (Urine) (04/12/21 11:30) Alcohol (04/12/21 11:30) Pantoprazole Injection (Protonix Injecti (04/12/21 11:45) Promethazine Injection (Phenergan Injec (04/12/21 11:45) Manual Differential (04/12/21 11:30) Lactic Acid Analyzer (04/12/21 12:07) Procalcitonin (Pct) (04/12/21 12:07) Lactated Ringers (Lr 1000 Ml Iv Solution (04/12/21 12:15) Labetalol Injection (Normodyne Injection (04/12/21 13:15) Basic Metabolic Panel (04/12/21 13:53) Clonidine Tablet (Catapres Tablet) (04/12/21 14:15) Lorazepam Injection (Ativan Injection) (04/12/21 14:15) Ondansetron Injection (Zofran Injectio (04/12/21 14:15) Lactated Ringers (Lr 1000 Ml Iv Solution (04/12/21 14:45) Ua Culture If Indicated (04/12/21 15:51) Urine Culture (04/12/21 15:48) Ceftriaxone (Rocephin) (04/12/21 16:30) Ns (Ivpb) (Sodium Chloride 0.9% Ivpb Bag (04/12/21 17:06) Medications Given in ED Current Medications Medications Dose Ordered Sig/Judi Route Start Time Stop Time Status Last Admin Dose Admin Ceftriaxone Sodium 1,000 mg ONCE ONCE IV 04/12/21 16:30 04/12/21 16:31 DC 04/12/21 17:12 1,000 MG Clonidine HCl 0.1 mg ONCE ONCE PO 04/12/21 14:15 04/12/21 14:16 DC 04/12/21 15:02 0.1 MG Labetalol HCl 10 mg ONCE ONCE IV 04/12/21 13:15 04/12/21 13:16 DC 04/12/21 13:31 10 MG Lorazepam 1 mg ONCE PRN IVP 04/12/21 14:15 04/12/21 18:04 DC 04/12/21 15:00 1 MG Ondansetron HCl 8 mg ONCE ONCE IVP 04/12/21 14:15 04/12/21 14:16 DC 04/12/21 14:59 8 MG Pantoprazole 40 mg ONCE ONCE IV 04/12/21 11:45 04/12/21 11:46 DC 04/12/21 11:54 40 MG Promethazine HCl 25 mg ONCE ONCE IVP 04/12/21 11:45 04/12/21 11:46 DC 04/12/21 11:55 25 MG Sodium Chloride 50 ml @ STK-MED ONCE .ROUTE 04/12/21 17:06 04/12/21 17:08 DC 04/12/21 17:13 50 MLS/HR Vital Signs/I&O 04/12/21 04/12/21 11:22 17:45 Temp 35.8 Pulse 127 92 Resp 18 18 B/P (MAP) 155/100 (118) 143/103 Pulse Ox 64 98 O2 Delivery Room Air Room Air Departure Communication (Admissions) 1209-EKG show sinus tach qtc 503 so Ill avoid droperidol which worked last visit. Rate of 129 no ectopy. Impression Primary Impression: Tetrahydrocannabinol (THC) dependence Additional Impression: Nausea & vomiting Disposition: 01 HOME, SELF-CARE Condition: Stable Departure-Patient Inst. Decision time for Depature: 11:33 Referrals: [facility] (PCP) Primary Care Physician AUDREY ELIZABETH (Family) Primary Care Physician Patient Instructions: Substance Use Disorder ED Add. Discharge Instructions: 1. Medication as directed. Do not smoke marijuana do not eat marijuana do not drink marijuana. Do not put any marijuana into your body in any form. FAMILIA ELISE GAMEROOM TECHNICIAN Apr 12, 2021 11:33
[2021-04-12 11:37] LABS: BASOPHILS % (AUTO) 0 % (0-10); EOSINOPHILS % (AUTO) 0 % (0-10); HEMATOCRIT 49 % (35-52); HEMOGLOBIN 15.9 g/dL (11.5-16.0); LYMPHOCYTES % (AUTO) 6 % (12-44); MEAN CORPUSCULAR HEMOGLOBIN 27 pg (25-34); MEAN CORPUSCULAR HGB CONC 32 g/dL (32-36); MEAN CORPUSCULAR VOLUME 82 fL (80-99); MEAN PLATELET VOLUME 9.5 fL (9.0-12.2); MONOCYTES # (AUTO) 0.6 10^3/uL (0.0-1.0); MONOCYTES % (AUTO) 3 % (0-12); NEUTROPHILS # (AUTO) 16.3 10^3/uL (1.8-7.8); NEUTROPHILS % (AUTO) 91 % (42-75); PLATELET COUNT 651 10^3/uL (130-400)
[2021-04-12] MEDS ORDERED: PROMETHAZINE INJ 25 MG/ML (PHENERGAN) AMP IVP ONE (11:45)
[2021-04-12] MEDS ORDERED: PANTOPRAZOLE 40 MG (PROTONIX) VIAL IV ONE (11:45)
[2021-04-12 11:48] LABS: ALBUMIN 4.6 GM/DL (3.2-4.5); CHLORIDE 87 MMOL/L (98-107); POTASSIUM 3.2 MMOL/L (3.6-5.0); SODIUM 137 MMOL/L (135-145)
[2021-04-12 11:49] LABS: CALCIUM 10.3 MG/DL (8.5-10.1)
[2021-04-12 11:50] LABS: GLUCOSE 290 MG/DL (70-105); TOTAL PROTEIN 8.3 GM/DL (6.4-8.2)
[2021-04-12 11:51] LABS: CARBON DIOXIDE 21 MMOL/L (21-32)
[2021-04-12 11:52] LABS: BILIRUBIN,TOTAL 0.6 MG/DL (0.1-1.0)
[2021-04-12 11:54] LABS: ALKALINE PHOSPHATASE 121 U/L (40-136); CREATININE SERUM 1.69 MG/DL (0.60-1.30); GFR ESTIMATED 33
[2021-04-12 11:55] LABS: BUN/CREATININE RATIO 15
[2021-04-12] MEDS: LACTATED RINGERS 1,000 ML IV SCH ×4 (11:55→15:04)
[2021-04-12 11:56] LABS: BAND NEUTROPHILS 0 %; EOSINOPHILS % (MANUAL) 0 %; LYMPHOCYTES % (MANUAL) 3 %; MONOCYTES % (MANUAL) 1 %; NEUTROPHILS % (MANUAL) 96 %
[2021-04-12 11:57] LABS: ALANINE AMINOTRANSFERASE 65 U/L (0-55); BASOPHILS % (MANUAL) 0 %; LIPASE 70 U/L (8-78); RBC MORPH NORMAL
[2021-04-12] MEDS ORDERED: LACTATED RINGERS 1,000 ML IV SCH ×2 (12:15→14:45)
[2021-04-12] MEDS ORDERED: LABETALOL HCL 20 MG/4 ML VIAL IV ONE (13:15)
[2021-04-12] MEDS ORDERED: cloNIDine 0.1 MG (CATAPRES) TAB PO ONE (14:15)
[2021-04-12] MEDS ORDERED: LORazepam INJ 2 MG/ML (ATIVAN) VIAL IVP PRN (14:15)
[2021-04-12] MEDS ORDERED: ONDANSETRON 4 MG/2 ML (SDV) Z0FRAN IVP ONE (14:15)
[2021-04-12 15:29] LABS: CALCIUM 9.5 MG/DL (8.5-10.1)
[2021-04-12 15:34] LABS: CREATININE SERUM 1.16 MG/DL (0.60-1.30)
[2021-04-12 15:56] LABS: BILIRUBIN,URINE 3+ (NEGATIVE); CLARITY,URINE CLEAR; COLOR,URINE YELLOW; GLUCOSE, URINE (UA) NEGATIVE (NEGATIVE); KETONES,URINE 2+ (NEGATIVE); LEUKOCYTE ESTERASE ,URINE NEGATIVE (NEGATIVE); NITRITE,URINE NEGATIVE (NEGATIVE); PROTEIN,URINE 1+ (NEGATIVE)
[2021-04-12 16:05] LABS: AMPHETAMINE SCREEN, URINE NEGATIVE (NEGATIVE); BARBITURATE SCREEN URINE NEGATIVE (NEGATIVE); BENZODIAZEPINES SCREEN URINE NEGATIVE (NEGATIVE); CANNABINOID SCREEN, URINE POSITIVE (NEGATIVE); COCAINE SCREEN URINE NEGATIVE (NEGATIVE); METHADONE STAT NEGATIVE (NEGATIVE); METHAMPHETAMINE SCREEN URINE S NEGATIVE (NEGATIVE); OPIATE SCREEN URINE NEGATIVE (NEGATIVE); OXYCODONE STAT NEGATIVE (NEGATIVE); PROPOXYPHENE STAT NEGATIVE (NEGATIVE); TRICYCLIC ANTIDEPRESSANTS SCRE NEGATIVE (NEGATIVE)
[2021-04-12 16:12] LABS: BACTERIA,URINE LARGE /HPF
[2021-04-12] MEDS ORDERED: cefTRIAXone 1,000 MG VIAL IV ONE (16:30)
[2021-04-12] MEDS ORDERED: NS (IVPB) 50 ML ONE (17:06)
[2021-04-12 17:45] VITALS: BP 143/103
== END 2021-04-12 18:03 | disposition home or self-care (01) ==
LOC: EDUNIT# 11:16 → ER 11:19
DX: F12.20 Cannabis dependence, uncomplicated (principal); R11.2 Nausea with vomiting, unspecified; J45.909 Unspecified asthma, uncomplicated; I10 Essential (primary) hypertension; R00.0 Tachycardia, unspecified; K21.9 Gastro-esophageal reflux disease without esophagitis; Z79.899 Other long term (current) drug therapy
CPT/HCPCS: 80048; 80053; 80306; 81000; 83605; 83690; 84145; 84703; 85007; 85027; 87088; 93005; 99284; G0480; 36415; 80320

== ENCOUNTER 2021-04-29 08:42 | Emergency (ER) | payer SELFPAY ==
[~2021-04-29] VITALS: Ht 167 cm; Wt 81.6 kg
[~2021-04-29 08:42] MED LIST changes: +DICY20TA PO; -POTA10TA36 PO; +POTA10TA37 PO; +TIZA-186 PO; -TIZA4TAB4 PO
[2021-04-29 08:52] VITALS: BP 147/99
[2021-04-29] MEDS ORDERED: ONDANSETRON 4 MG/2 ML (SDV) Z0FRAN IVP ONE (09:00)
[2021-04-29] MEDS ORDERED: LACTATED RINGERS 1,000 ML IV ONE (09:00)
[2021-04-29 09:15] LABS: BASOPHILS % (AUTO) 0 % (0-10); EOSINOPHILS % (AUTO) 0 % (0-10); HEMATOCRIT 45 % (35-52); HEMOGLOBIN 14.5 g/dL (11.5-16.0); LYMPHOCYTES # (AUTO) 2.3 10^3/uL (1.0-4.0); LYMPHOCYTES % (AUTO) 24 % (12-44); MEAN CORPUSCULAR HEMOGLOBIN 27 pg (25-34); MEAN CORPUSCULAR HGB CONC 32 g/dL (32-36); MEAN CORPUSCULAR VOLUME 82 fL (80-99); MEAN PLATELET VOLUME 9.8 fL (9.0-12.2); MONOCYTES # (AUTO) 0.9 10^3/uL (0.0-1.0); MONOCYTES % (AUTO) 9 % (0-12); NEUTROPHILS # (AUTO) 6.3 10^3/uL (1.8-7.8); NEUTROPHILS % (AUTO) 66 % (42-75); PLATELET COUNT 427 10^3/uL (130-400); WHITE BLOOD COUNT 9.5 10^3/uL (4.3-11.0)
[2021-04-29 09:20] LABS: ALBUMIN 4.2 GM/DL (3.2-4.5); POTASSIUM 2.9 MMOL/L (3.6-5.0)
[2021-04-29 09:21] LABS: CALCIUM 10.6 MG/DL (8.5-10.1)
[2021-04-29 09:24] LABS: BILIRUBIN,TOTAL 0.7 MG/DL (0.1-1.0)
[2021-04-29 09:26] LABS: CREATININE SERUM 1.17 MG/DL (0.60-1.30)
[2021-04-29 09:29] LABS: MAGNESIUM 1.8 MG/DL (1.6-2.4)
[2021-04-29] MEDS ORDERED: PROMETHAZINE INJ 25 MG/ML (PHENERGAN) AMP IVP ONE (10:00)
[2021-04-29] MEDS ORDERED: NS IV 1000 ML 1,000 ML IV SCH (10:30)
[2021-04-29] MEDS ORDERED: POTASSIUM CL 10MEQ/50ML IVPB 50 ML IV ONE ×2 (10:30→10:45)
[2021-04-29] MEDS ORDERED: FAMOTIDINE 20MG/2ML IV (PEPCID) IVP ONE (10:45)
[2021-04-29] MEDS ORDERED: fentaNYL INJ 100 MCG/2 ML AMP IVP ONE (10:45)
[2021-04-29] MEDS ORDERED: LIDOCAINE 2% VISCOUS 15 ML UDC PO ONE (12:45)
[2021-04-29] MEDS ORDERED: ANTACID SUSP 30 ML UDC (MYLANTA) PO ONE (12:45)
[2021-04-29] MEDS ORDERED: ONDA4TAB11 SL (13:09)
[2021-04-29] MEDS ORDERED: FAMO-119 PO (13:09)
--- NOTE | 2021-04-29 13:10 | ED Abdominal Pain ---
General Chief Complaint: Abdominal/GI Problems Stated Complaint: VOMITING Nursing Triage Note: PT AMBULATORY TO ER, C/O N/V ONSET YESTERDAY, HAS TAKEN ZOFRAN WITH NO RELIEF. Source of Information: Patient, Old Records Exam Limitations: No Limitations History of Present Illness Date Seen by Provider: Apr 29, 2021 Time Seen by Provider: 08:56 Allergies and Home Medications Allergies Coded Allergies: morphine (Verified Allergy, Unknown, CAUSES "REBOUND HEADACHES", 12/13/20) PT HAS RECEIVED LORTAB & OXYCODONE IN THE PAST baclofen (Verified Adverse Reaction, Severe, 12/13/20) PATIENT UNAWARE OF REACTION BUT WAS HOSPITALIZED AFTER TAKING MEDICATION AND WAS TOLD IT WAS A REACTION DUE TO THE MEDICATION SHE TOOK. meloxicam (Verified Adverse Reaction, Severe, 12/13/20) PATIENT UNAWARE OF REACTION BUT WAS HOSPITALIZED AFTER TAKING MEDICATION AND WAS TOLD IT WAS A REACTION DUE TO THE MEDICATION SHE TOOK. NSAIDS (Non-Steroidal Anti-Inflamma (Verified Adverse Reaction, Mild, have IBS and avoid NSAIDS, 12/13/20) Patient Home Medication List Amlodipine Besylate (Amlodipine Besylate) 5 Mg Tablet, 5 MG PO DAILY Prescribed by: KRYSTIN RAMOS on 03/01/21 1209 Dicyclomine HCl (Dicyclomine HCl) 20 Mg Tablet, 20 MG PO QID, (Reported) Entered as Reported by: ZAIRA ARCHER on 02/28/21 1459 Dicyclomine HCl (Dicyclomine HCl) 20 Mg Tablet, 20 MG PO Q6H Prescribed by: CHANTEL MAYORGA on 04/07/21 2347 Lisinopril (Lisinopril) 40 Mg Tablet, 40 MG PO DAILY Prescribed by: KRYSTIN RAMOS on 03/01/21 1209 Metoprolol Succinate (Metoprolol Succinate) 100 Mg Tab.er.24h, 100 MG PO DAILY, (Reported) Entered as Reported by: ZAIRA ARCHER on 02/28/21 1459 Nitrofurantoin Macrocrystal (Nitrofurantoin) 100 Mg Capsule, 100 MG PO BID Prescribed by: CHRISTIANO ALANIZ on 03/14/21 1407 Omeprazole (Omeprazole) 20 Mg Capsule.dr, 20 MG PO DAILY, (Reported) Entered as Reported by: ZAIRA ARCHER on 02/28/21 1459 Ondansetron (Ondansetron Odt) 8 Mg Tab.rapdis, 8 MG PO Q6H Prescribed by: CHANTEL MAYORGA on 03/13/21 152 Ondansetron (Ondansetron Odt) 8 Mg Tab.rapdis, 8 MG PO Q4H PRN for NAUSEA/VOMITING Prescribed by: CHANTEL AMYORGA on 04/07/21 234 Pantoprazole Sodium (Protonix) 40 Mg Tablet.dr, 40 MG PO DAILY Prescribed by: CHANTEL MAYORGA on 03/13/21 152 Pantoprazole Sodium (Protonix) 40 Mg Tablet.dr, 40 MG PO DAILY Prescribed by: CHANTEL MAYORGA on 04/07/21 234 Promethazine HCl (Promethazine Suppository) 25 Mg Supp.rect, 25 MG RC Q6 Prescribed by: CHANTEL MAYORGA on 04/07/212346 Sucralfate (Sucralfate) 1 Gm Tablet, 1 GM PO BID, (Reported) Entered as Reported by: YOEL GEORGES on 09/19/20 1353 Sucralfate (Carafate) 1 Gm Tablet, 1 GM PO QID Prescribed by: CHANTEL MAYORGA on 04/07/212346 Sumatriptan Succinate (Sumatriptan Succinate) 100 Mg Tablet, 100 MG PO DAILY PRN for MIGRAINE, (Reported) Entered as Reported by: ZAIRA ARCHER on 08/25/20 0943 Past Qloelay-Sfqvel-Asxrrq Hx Patient Social History Tobacco Use?: No Substance use?: No Alcohol Use?: No Pt feels they are or have been: No Immunizations Up To Date Tetanus Booster (TDap): Unknown PED Vaccines UTD: No First/Initial COVID19 Vaccinat: n/a Seasonal Allergies Seasonal Allergies: No Past Medical History Surgery/Hospitalization HX: TONSILLECTOMY HYSTERECTOMY BILATERAL TUBAL LIGATION CHOLECYSTECTOMY LAPAROSCOPY 09/19/[address] BHATTI FOR INTUSSUCEPTION EGD'S--LAST ONE 01/16/[address] BHATTI--SHOWED GASTRITIS, SMALL HIATAL. 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 Sexually Transmitted Disease: Yes (HPV) HIV/AIDS: No Genitourinary: Yes Bladder Infection Gastrointestinal: Yes (History of cyclic vomiting and cannabis hyperemesis;CHRONIC N/V/ABD PAIN ) Gastroesophageal Reflux, Diverticulosis, Esophagitis, Hiatal Hernia, Gall Bladder Disease Musculoskeletal: Yes Chronic Back Pain Endocrine: No HEENT: Yes (POOR DENTITION) Loss of Vision: Denies Hearing Impairment: Denies Cancer: Yes Uterine Psychosocial: Yes (THC USE) Anxiety, Depression Integumentary: No Blood Disorders: No Adverse Reaction/Blood Tranf: No Family Medical History Diabetes mellitus 19 FATHER FHx: brain tumor 19 MOTHER HPV infection G8 SISTER No Family History of: AIDS Abdominal aortic aneurysm Austin's disease Alcoholism Alzheimer's disease Aphasia Arthritis Asthma Cancer of mouth Cardiovascular disease Cataracts Colon cancer Completed stroke Congenital disease Congenital heart disease Coronary thrombosis Cystic fibrosis Deafness or hearing loss Dementia Drug abuse Dysphasia Fibrocystic disease of breast Gastroenteritis Glaucoma Headache disorder Hypercholesterolemia Hypertension Infertility Kidney disease Myocardial infarction Neoplasm Not obtainable due to adoption Osteoporosis Parkinson's disease Prostate cancer Psychosocial problem Respiratory disorder Seizure disorder Severe allergy Thyroid disease Tuberculosis Visual disorder Heart Disease, Hypertension SOCIAL HISTORY: -SMOKING -ETOH- -DRUGS--CHRONIC MARIJUANA USE PAST SURGICAL HISTORY: -09/20/20--LAPAROSCOPY FOR INTUSSCEPTION BY DR. BHATTI -08/24/20 --EGD/COLONOSCOPY--DX GASTRITIS/ESOPHAGITIS -01/16/21--EGD BY DR. BHATTI--DX GASTRITIS/ESOPHAGITIS/SMALL HIATAL HERNIA -CHOLECYSTECTOMY -BILATERAL TUBAL LIGATION -HYSTERECTOMY/BILATERAL SALPINGO-OOPHORECTOMY 2005 -BLADDER SLING/LATER REMOVED -CARDIAC CATH 2012--NORMAL Physical Exam Vital Signs Vital Signs - First Documented 04/29/21 04/29/21 08:52 09:38 Temp 36.6 Pulse 106 Resp 20 B/P (MAP) 147/99 (115) Pulse Ox 98 O2 Delivery Room Air Capillary Refill : Height/Weight/BMI Height: 5'6.00" Weight: 203lbs. 6.4oz. [id number]; 29.00 BMI Method:Stated Progress/Results/Core Measures Results/Orders Lab Results Laboratory Tests Test 04/29/21 09:06 Range/Units White Blood Count 9.5 4.3-11.0 10^3/uL Red Blood Count 5.47 H 3.80-5.11 10^6/uL Hemoglobin 14.5 11.5-16.0 g/dL Hematocrit 45 35-52 % Mean Corpuscular Volume 82 80-99 fL Mean Corpuscular Hemoglobin 27 25-34 pg Mean Corpuscular Hemoglobin Concent 32 32-36 g/dL Red Cell Distribution Width 15.9 H 10.0-14.5 % Platelet Count 427 H 130-400 10^3/uL Mean Platelet Volume 9.8 9.0-12.2 fL Immature Granulocyte % (Auto) 0 % Neutrophils (%) (Auto) 66 42-75 % Lymphocytes (%) (Auto) 24 12-44 % Monocytes (%) (Auto) 9 0-12 % Eosinophils (%) (Auto) 0 0-10 % Basophils (%) (Auto) 0 0-10 % Neutrophils # (Auto) 6.3 1.8-7.8 10^3/uL Lymphocytes # (Auto) 2.3 1.0-4.0 10^3/uL Monocytes # (Auto) 0.9 0.0-1.0 10^3/uL Eosinophils # (Auto) 0.0 0.0-0.3 10^3/uL Basophils # (Auto) 0.0 0.0-0.1 10^3/uL Immature Granulocyte # (Auto) 0.0 0.0-0.1 10^3/uL Sodium Level 140 135-145 MMOL/L Potassium Level 2.9 L 3.6-5.0 MMOL/L Chloride Level 88 L 98-107 MMOL/L Carbon Dioxide Level 30 21-32 MMOL/L Anion Gap 22 H 5-14 MMOL/L Blood Urea Nitrogen 7 7-18 MG/DL Creatinine 1.17 0.60-1.30 MG/DL Estimat Glomerular Filtration Rate 50 BUN/Creatinine Ratio 6 Glucose Level 165 H 70-105 MG/DL Calcium Level 10.6 H 8.5-10.1 MG/DL Corrected Calcium 10.4 H 8.5-10.1 MG/DL Magnesium Level 1.8 1.6-2.4 MG/DL Total Bilirubin 0.7 0.1-1.0 MG/DL Aspartate Amino Transf (AST/SGOT) 35 H 5-34 U/L Alanine Aminotransferase (ALT/SGPT) 29 0-55 U/L Alkaline Phosphatase 114 40-136 U/L C-Reactive Protein High Sensitivity 3.98 H 0.00-0.50 MG/DL Total Protein 8.0 6.4-8.2 GM/DL Albumin 4.2 3.2-4.5 GM/DL Lipase 61 8-78 U/L My Orders Orders - MARY VITAL MD Cbc With Automated Diff (04/29/21 08:56) Comprehensive Metabolic Panel (04/29/21 08:56) Hs C Reactive Protein (04/29/21 08:56) Lipase (04/29/21 08:56) Magnesium (04/29/21 08:56) Ua Culture If Indicated (04/29/21 08:56) Ed Iv/Invasive Line Start (04/29/21 08:56) Lactated Ringers (Lr 1000 Ml Iv Solution (04/29/21 09:00) Ondansetron Injection (Zofran Injectio (04/29/21 09:00) Promethazine Injection (Phenergan Injec (04/29/21 10:00) Potassium Cl 10meq/50ml Ivpb (Kcl 10 Meq (04/29/21 10:30) Ns Iv 1000 Ml (Sodium Chloride 0.9%) (04/29/21 10:30) Potassium Cl 10meq/50ml Ivpb (Kcl 10 Meq (04/29/21 10:45) Famotidine Injection (Pepcid Injection) (04/29/21 10:45) Fentanyl Inj (Sublimaze Injection) (04/29/21 10:45) Lidocaine 2% Viscous 15 Ml (Xylocaine Vi (04/29/21 12:45) Antacid Suspension (Mylanta Suspension (04/29/21 12:45) Potassium Chloride (Tablet) (Klor Con Ta (04/29/21 13:15) Medications Given in ED Current Medications Medications Dose Ordered Sig/Judi Route Start Time Stop Time Status Last Admin Dose Admin Al Hydrox/Mg Hydrox/Simethicone 30 ml ONCE ONCE PO 04/29/21 12:45 04/29/21 12:46 DC 04/29/21 12:43 30 ML Famotidine 20 mg ONCE ONCE IVP 04/29/21 10:45 04/29/21 10:46 DC 04/29/21 10:49 20 MG Fentanyl Citrate 50 mcg ONCE ONCE IVP 04/29/21 10:45 04/29/21 10:46 DC 04/29/21 10:49 50 MCG Lactated Ringer's 1,000 ml @ 0 mls/hr Q0M ONCE IV 04/29/21 09:00 04/29/21 09:01 DC 04/29/21 09:10 0 MLS/HR Lidocaine HCl 15 ml ONCE ONCE PO 04/29/21 12:45 04/29/21 12:46 DC 04/29/21 12:43 15 ML Ondansetron HCl 8 mg ONCE ONCE IVP 04/29/21 09:00 04/29/21 09:01 DC 04/29/21 09:10 8 MG Potassium Chloride 50 ml @ 50 mls/hr ONCE ONCE IV 04/29/21 10:30 04/29/21 11:29 DC 04/29/21 10:37 50 MLS/HR Potassium Chloride 50 ml @ 50 mls/hr ONCE ONCE IV 04/29/21 10:45 04/29/21 11:44 DC 04/29/21 11:34 50 MLS/HR Promethazine HCl 25 mg ONCE ONCE IVP 04/29/21 10:00 04/29/21 10:01 DC 04/29/21 09:51 25 MG Vital Signs/I&O 04/29/21 04/29/21 04/29/21 04/29/21 08:52 09:38 10:05 10:40 Temp 36.6 Pulse 106 92 101 104 Resp 20 18 18 18 B/P (MAP) 147/99 (115) 147/108 134/84 151/99 Pulse Ox 98 100 100 100 O2 Delivery Room Air Room Air Room Air 04/29/21 04/29/21 04/29/21 04/29/21 11:09 11:34 12:09 12:44 Pulse 92 97 99 93 Resp 16 16 20 16 B/P (MAP) 146/106 138/79 152/107 145/92 Pulse Ox 99 97 100 99 O2 Delivery Room Air Room Air Room Air Room Air Blood Pressure Mean: 109 Departure Impression Primary Impression: Nausea and vomiting Qualified Codes: R11.2 - Nausea with vomiting, unspecified Additional Impressions: Epigastric pain Hypokalemia Disposition: 01 HOME, SELF-CARE Condition: Improved Departure-Patient Inst. Referrals: [facility] (PCP) Primary Care Physician AUDREY ELIZABETH (Family) Primary Care Physician Patient Instructions: Hypokalemia, Severe Abdominal Pain, Adult (DC) Add. Discharge Instructions: Start with a noncarbonated clear liquid diet and gradually advance your diet with small quantities of bland food. Start taking an antacid medication such as omeprazole 20 mg or Pepcid (famotidine) 20 mg twice daily. This can be purchased [id number]. Continue taking this until otherwise instructed by a physician. Refrain from using any THC-containing products including marijuana, gummies, vape, etc. This may be a significant trigger for your nausea and vomiting. Use Zofran as prescribed for nausea or vomiting. Follow-up with your primary care provider soon as possible. Call with questions or concerns. Return to the ER if you have worsening symptoms. All discharge instructions reviewed with patient and/or family. Voiced understanding. Scripts Ondansetron (Ondansetron Odt) 4 Mg Tab.rapdis 4 MG SL Q4H PRN for NAUSEA/VOMITING, #10 TAB Prov: MARY VITAL MD 04/29/21 Famotidine (Pepcid) 20 Mg Tablet 20 MG PO BID, #60 TAB Prov: MARY VITAL MD 04/29/21 MARY VITAL MD Apr 29, 2021 13:10
[2021-04-29] MEDS ORDERED: KCL 10 MEQ TAB (MICRO K) PO ONE (13:15)
== END 2021-04-29 13:16 | disposition home or self-care (01) ==
LOC: EDUNIT# 08:42 → ER 08:44
DX: R11.2 Nausea with vomiting, unspecified (principal); R10.13 Epigastric pain; E87.6 Hypokalemia; J45.909 Unspecified asthma, uncomplicated; I10 Essential (primary) hypertension; K21.9 Gastro-esophageal reflux disease without esophagitis; Z79.899 Other long term (current) drug therapy
CPT/HCPCS: 36415; 80053; 83690; 83735; 85025; 86141

== ENCOUNTER 2021-05-05 08:19 | Inpatient (IN) | payer SELFPAY ==
[~2021-05-05] VITALS: Ht 167 cm; Wt 72.7 kg
[~2021-05-05 08:19] MED LIST changes: +ONDA4TAB11 SL
[2021-05-05 10:12] LABS: BASOPHILS % (AUTO) 0 % (0-10); EOSINOPHILS % (AUTO) 0 % (0-10); HEMATOCRIT 43 % (35-52); HEMOGLOBIN 14.2 g/dL (11.5-16.0); LYMPHOCYTES # (AUTO) 0.9 10^3/uL (1.0-4.0); LYMPHOCYTES % (AUTO) 8 % (12-44); MEAN CORPUSCULAR HEMOGLOBIN 27 pg (25-34); MEAN CORPUSCULAR HGB CONC 33 g/dL (32-36); MEAN CORPUSCULAR VOLUME 82 fL (80-99); MEAN PLATELET VOLUME 9.7 fL (9.0-12.2); MONOCYTES # (AUTO) 0.3 10^3/uL (0.0-1.0); MONOCYTES % (AUTO) 3 % (0-12); NEUTROPHILS # (AUTO) 9.5 10^3/uL (1.8-7.8); NEUTROPHILS % (AUTO) 88 % (42-75); PLATELET COUNT 581 10^3/uL (130-400); WHITE BLOOD COUNT 10.8 10^3/uL (4.3-11.0)
[2021-05-05] MEDS ORDERED: DROPERIDOL 5 MG/2 ML (INAPSINE) ED ONLY! IV ONE (10:15)
[2021-05-05] MEDS ORDERED: NS IV 1000 ML 1,000 ML IV SCH (10:15)
--- NOTE | 2021-05-05 10:15 | ED Abdominal Pain ---
General Chief Complaint: Abdominal/GI Problems Stated Complaint: N/V,SHOULDER PAIN Nursing Triage Note: pt c/o vomiting starting last night Source of Information: Patient Exam Limitations: No Limitations History of Present Illness Date Seen by Provider: May 05, 2021 Time Seen by Provider: 10:13 Initial Comments To ER with recurrent nausea vomiting starting last night. She is had no marijuana intake in any form she claims since 04/09/2021. History of multiple ER visits for hyperemesis cannabinoid syndrome. Timing/Duration: 1-2 Days Severity/Quality: Moderate Radiation: No Radiation Activities at Onset: None Associated Symptoms: Nausea/Vomiting Allergies and Home Medications Allergies Coded Allergies: morphine (Verified Allergy, Unknown, CAUSES "REBOUND HEADACHES", 12/13/20) PT HAS RECEIVED LORTAB & OXYCODONE IN THE PAST baclofen (Verified Adverse Reaction, Severe, 12/13/20) PATIENT UNAWARE OF REACTION BUT WAS HOSPITALIZED AFTER TAKING MEDICATION AND WAS TOLD IT WAS A REACTION DUE TO THE MEDICATION SHE TOOK. meloxicam (Verified Adverse Reaction, Severe, 12/13/20) PATIENT UNAWARE OF REACTION BUT WAS HOSPITALIZED AFTER TAKING MEDICATION AND WAS TOLD IT WAS A REACTION DUE TO THE MEDICATION SHE TOOK. NSAIDS (Non-Steroidal Anti-Inflamma (Verified Adverse Reaction, Mild, have IBS and avoid NSAIDS, 12/13/20) Patient Home Medication List Home Medication List Reviewed: Yes Amlodipine Besylate (Amlodipine Besylate) 5 Mg Tablet, 5 MG PO DAILY Prescribed by: KRYSTIN RAMOS on 03/01/21 1209 Dicyclomine HCl (Dicyclomine HCl) 20 Mg Tablet, 20 MG PO QID, (Reported) Entered as Reported by: ZAIRA ARCHER on 02/28/21 1459 Dicyclomine HCl (Dicyclomine HCl) 20 Mg Tablet, 20 MG PO Q6H Prescribed by: CHANTEL MAYORGA on 04/07/21 2347 Famotidine (Pepcid) 20 Mg Tablet, 20 MG PO BID Prescribed by: MARY BENTLEY on 04/29/21 1309 Lisinopril (Lisinopril) 40 Mg Tablet, 40 MG PO DAILY Prescribed by: KRYSTIN RAMOS on 03/01/21 1209 Metoprolol Succinate (Metoprolol Succinate) 100 Mg Tab.er.24h, 100 MG PO DAILY, (Reported) Entered as Reported by: ZAIRA ARCHER on 02/28/21 1459 Nitrofurantoin Macrocrystal (Nitrofurantoin) 100 Mg Capsule, 100 MG PO BID Prescribed by: CHRISTIANO ALANIZ on 03/14/21 1407 Omeprazole (Omeprazole) 20 Mg Capsule.dr, 20 MG PO DAILY, (Reported) Entered as Reported by: ZAIRA ARCHER on 02/28/21 1459 Ondansetron (Ondansetron Odt) 8 Mg Tab.rapdis, 8 MG PO Q6H Prescribed by: CHANTEL MAYORGA on 03/13/21 1523 Ondansetron (Ondansetron Odt) 8 Mg Tab.rapdis, 8 MG PO Q4H PRN for NAUSEA/VOMITING Prescribed by: CHANTEL MAYORGA on 04/07/21 234 Ondansetron (Ondansetron Odt) 4 Mg Tab.rapdis, 4 MG SL Q4H PRN for NAUSEA/VOMITING Prescribed by: MARY BENTLEY on 04/29/21 1309 Pantoprazole Sodium (Protonix) 40 Mg Tablet.dr, 40 MG PO DAILY Prescribed by: CHANTEL MAYORGA on 03/13/21 1523 Pantoprazole Sodium (Protonix) 40 Mg Tablet.dr, 40 MG PO DAILY Prescribed by: CHANTEL MAYORGA on 04/07/21 234 Promethazine HCl (Promethazine Suppository) 25 Mg Supp.rect, 25 MG RC Q6 Prescribed by: CHANTEL MAYORGA on 04/07/21 234 Sucralfate (Sucralfate) 1 Gm Tablet, 1 GM PO BID, (Reported) Entered as Reported by: YOEL GEORGES on 09/19/20 1353 Sucralfate (Carafate) 1 Gm Tablet, 1 GM PO QID Prescribed by: CHANTEL MAYORGA on 04/07/21 234 Sumatriptan Succinate (Sumatriptan Succinate) 100 Mg Tablet, 100 MG PO DAILY PRN for MIGRAINE, (Reported) Entered as Reported by: ZAIRA ARCHER on 08/25/20 0943 Review of Systems Review of Systems Constitutional: see HPI EENTM: No Symptoms Reported Respiratory: No Symptoms Reported Cardiovascular: No Symptoms Reported Gastrointestinal: See HPI, Abdominal Pain Genitourinary: No Symptoms Reported Musculoskeletal: no symptoms reported Skin: no symptoms reported Psychiatric/Neurological: No Symptoms Reported Endocrine: No Symptoms Reported Hematologic/Lymphatic: No Symptoms Reported Past Xpjdpie-Glkstu-Vuoznq Hx Immunizations Up To Date Tetanus Booster (TDap): Unknown PED Vaccines UTD: No First/Initial COVID19 Vaccinat: n/a Seasonal Allergies Seasonal Allergies: No Past Medical History Surgery/Hospitalization HX: TONSILLECTOMY HYSTERECTOMY BILATERAL TUBAL LIGATION CHOLECYSTECTOMY LAPAROSCOPY 09/19/[address] BHATTI FOR INTUSSUCEPTION EGD'S--LAST ONE 01/16/[address] BHATTI--SHOWED GASTRITIS, SMALL HIATAL. 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 Sexually Transmitted Disease: Yes (HPV) HIV/AIDS: No Genitourinary: Yes Bladder Infection Gastrointestinal: Yes (History of cyclic vomiting and cannabis hyperemesis;CHRONIC N/V/ABD PAIN ) Gastroesophageal Reflux, Diverticulosis, Esophagitis, Hiatal Hernia, Gall Bladder Disease Musculoskeletal: Yes Chronic Back Pain Endocrine: No HEENT: Yes (POOR DENTITION) Loss of Vision: Denies Hearing Impairment: Denies Cancer: Yes Uterine Psychosocial: Yes (THC USE) Anxiety, Depression Integumentary: No Blood Disorders: No Adverse Reaction/Blood Tranf: No Family Medical History Diabetes mellitus 19 FATHER FHx: brain tumor 19 MOTHER HPV infection G8 SISTER No Family History of: AIDS Abdominal aortic aneurysm Kenly's disease Alcoholism Alzheimer's disease Aphasia Arthritis Asthma Cancer of mouth Cardiovascular disease Cataracts Colon cancer Completed stroke Congenital disease Congenital heart disease Coronary thrombosis Cystic fibrosis Deafness or hearing loss Dementia Drug abuse Dysphasia Fibrocystic disease of breast Gastroenteritis Glaucoma Headache disorder Hypercholesterolemia Hypertension Infertility Kidney disease Myocardial infarction Neoplasm Not obtainable due to adoption Osteoporosis Parkinson's disease Prostate cancer Psychosocial problem Respiratory disorder Seizure disorder Severe allergy Thyroid disease Tuberculosis Visual disorder Heart Disease, Hypertension SOCIAL HISTORY: -SMOKING -ETOH- -DRUGS--CHRONIC MARIJUANA USE PAST SURGICAL HISTORY: -09/20/20--LAPAROSCOPY FOR INTUSSCEPTION BY DR. BHATTI -08/24/20 --EGD/COLONOSCOPY--DX GASTRITIS/ESOPHAGITIS -01/16/21--EGD BY DR. BHATTI--DX GASTRITIS/ESOPHAGITIS/SMALL HIATAL HERNIA -CHOLECYSTECTOMY -BILATERAL TUBAL LIGATION -HYSTERECTOMY/BILATERAL SALPINGO-OOPHORECTOMY 2005 -BLADDER SLING/LATER REMOVED -CARDIAC CATH 2012--NORMAL Physical Exam Vital Signs Vital Signs - First Documented 05/05/21 08:47 Temp 36.0 Pulse 118 Resp 24 B/P (MAP) 136/93 (107) Pulse Ox 98 O2 Delivery Room Air Capillary Refill : Less Than 3 Seconds Height/Weight/BMI Height: 5'6.00" Weight: 203lbs. 6.4oz. 92.518023yx; 26.00 BMI Method:Stated General Appearance: WD/WN, no apparent distress HEENT: PERRL/EOMI, normal ENT inspection Neck: non-tender, full range of motion Respiratory: no respiratory distress, no accessory muscle use Cardiovascular: regular rate, rhythm, no murmur Gastrointestinal: normal bowel sounds, non tender, soft Extremities: normal range of motion, non-tender Neurologic/Psychiatric: alert, normal mood/affect, oriented x 3 Skin: normal color, warm/dry Progress/Results/Core Measures Results/Orders Lab Results Laboratory Tests Test 05/05/21 10:10 Range/Units White Blood Count 10.8 4.3-11.0 10^3/uL Red Blood Count 5.28 H 3.80-5.11 10^6/uL Hemoglobin 14.2 11.5-16.0 g/dL Hematocrit 43 35-52 % Mean Corpuscular Volume 82 80-99 fL Mean Corpuscular Hemoglobin 27 25-34 pg Mean Corpuscular Hemoglobin Concent 33 32-36 g/dL Red Cell Distribution Width 15.7 H 10.0-14.5 % Platelet Count 581 H 130-400 10^3/uL Mean Platelet Volume 9.7 9.0-12.2 fL Immature Granulocyte % (Auto) 0 % Neutrophils (%) (Auto) 88 H 42-75 % Lymphocytes (%) (Auto) 8 L 12-44 % Monocytes (%) (Auto) 3 0-12 % Eosinophils (%) (Auto) 0 0-10 % Basophils (%) (Auto) 0 0-10 % Neutrophils # (Auto) 9.5 H 1.8-7.8 10^3/uL Lymphocytes # (Auto) 0.9 L 1.0-4.0 10^3/uL Monocytes # (Auto) 0.3 0.0-1.0 10^3/uL Eosinophils # (Auto) 0.0 0.0-0.3 10^3/uL Basophils # (Auto) 0.0 0.0-0.1 10^3/uL Immature Granulocyte # (Auto) 0.0 0.0-0.1 10^3/uL Neutrophils % (Manual) 89 % Lymphocytes % (Manual) 8 % Monocytes % (Manual) 3 % Hypersegmented Neutrophils MODERATE Blood Morphology Comment NORMAL Sodium Level 137 135-145 MMOL/L Potassium Level 2.2 *L 3.6-5.0 MMOL/L Chloride Level 84 L 98-107 MMOL/L Carbon Dioxide Level 26 21-32 MMOL/L Anion Gap 27 H 5-14 MMOL/L Blood Urea Nitrogen 8 7-18 MG/DL Creatinine 1.35 H 0.60-1.30 MG/DL Estimat Glomerular Filtration Rate 43 BUN/Creatinine Ratio 6 Glucose Level 242 H 70-105 MG/DL Calcium Level 10.9 H 8.5-10.1 MG/DL Corrected Calcium 8.5-10.1 MG/DL Magnesium Level 2.1 1.6-2.4 MG/DL Total Bilirubin 0.7 0.1-1.0 MG/DL Aspartate Amino Transf (AST/SGOT) 20 5-34 U/L Alanine Aminotransferase (ALT/SGPT) 17 0-55 U/L Alkaline Phosphatase 93 40-136 U/L Total Protein 8.7 H 6.4-8.2 GM/DL Albumin 4.6 H 3.2-4.5 GM/DL Lipase 67 8-78 U/L Serum Test, Qualitative NEGATIVE NEGATIVE My Orders Orders - FAMILIA ELISE WINDOW CUTTER Cbc With Automated Diff (05/05/21 10:03) Comprehensive Metabolic Panel (05/05/21 10:03) Ekg Tracing (05/05/21 10:03) Lipase (05/05/21 10:03) Hcg,Qualitative Serum (05/05/21 10:03) Ed Iv/Invasive Line Start (05/05/21 10:03) Ns Iv 1000 Ml (Sodium Chloride 0.9%) (05/05/21 10:15) Droperidol Inj (Ed Only) (Inapsine Inj ( (05/05/21 10:15) Ua Culture If Indicated (05/05/21 10:10) Drug Screen Stat (Urine) (05/05/21 10:10) Manual Differential (05/05/21 10:10) Lorazepam Injection (Ativan Injection) (05/05/21 10:30) Potassium Cl 10meq/50ml Ivpb (Kcl 10 Meq (05/05/21 10:30) Magnesium (05/05/21 10:30) Alcohol (05/05/21 10:54) Medications Given in ED Current Medications Medications Dose Ordered Sig/Judi Route Start Time Stop Time Status Last Admin Dose Admin Droperidol 2.5 mg ONCE ONCE IV 05/05/21 10:15 05/05/21 10:16 DC 05/05/21 10:14 2.5 MG Lorazepam 1 mg ONCE ONCE IVP 05/05/21 10:30 05/05/21 10:31 DC 05/05/21 10:35 1 MG Vital Signs/I&O 05/05/21 08:47 Temp 36.0 Pulse 118 Resp 24 B/P (MAP) 136/93 (107) Pulse Ox 98 O2 Delivery Room Air Blood Pressure Mean: 107 Departure Communication (Admissions) 1106-discussed with Dr. Salvador. Will need to admit given the severe hypokalemia and the need for telemetry monitoring while this is replaced due to risk of arrhythmia. At this time after about 1.5 mg of droperidol and 1 mg of IV lorazepam she is sleeping and without complaint of abdominal pain. Impression Primary Impression: Severe hypokalemia Disposition: ADMITTED INPATIENT Condition: Stable Admissions Decision to Admit Reason: Admit from ER (General) Decision to Admit/Date: May 05, 2021 Time/Decision to Admit Time: 11:02 Departure-Patient Inst. Referrals: [facility] (PCP) Primary Care Physician AUDREY ELIZABETH (Family) Primary Care Physician FAMILIA ELISE APRN May 05, 2021 10:15
[2021-05-05 10:20] LABS: ALBUMIN 4.6 GM/DL (3.2-4.5); CHLORIDE 84 MMOL/L (98-107); SODIUM 137 MMOL/L (135-145)
[2021-05-05 10:21] LABS: CALCIUM 10.9 MG/DL (8.5-10.1)
[2021-05-05 10:22] LABS: GLUCOSE 242 MG/DL (70-105)
[2021-05-05 10:23] LABS: TOTAL PROTEIN 8.7 GM/DL (6.4-8.2)
[2021-05-05 10:24] LABS: BILIRUBIN,TOTAL 0.7 MG/DL (0.1-1.0); CARBON DIOXIDE 26 MMOL/L (21-32)
[2021-05-05 10:26] LABS: ALKALINE PHOSPHATASE 93 U/L (40-136); CREATININE SERUM 1.35 MG/DL (0.60-1.30); GFR ESTIMATED 43
[2021-05-05 10:27] LABS: BUN/CREATININE RATIO 6
[2021-05-05 10:29] LABS: ALANINE AMINOTRANSFERASE 17 U/L (0-55); LIPASE 67 U/L (8-78)
[2021-05-05 10:30] LABS: POTASSIUM 2.2 MMOL/L (3.6-5.0)
[2021-05-05] MEDS ORDERED: LORazepam INJ 2 MG/ML (ATIVAN) VIAL IVP ONE (10:30)
[2021-05-05 10:31] LABS: LYMPHOCYTES % (MANUAL) 8 %; MONOCYTES % (MANUAL) 3 %; NEUTROPHILS % (MANUAL) 89 %
[2021-05-05 10:32] LABS: HYPERSEGMENTED NEUT MODERATE; RBC MORPH NORMAL
[2021-05-05] MEDS: POTASSIUM CL 10MEQ/50ML IVPB 50 ML IV SCH ×6 (10:38→16:35)
[2021-05-05] MEDS ORDERED: meTOprolol 5 MG/5 ML (LOPRESSOR) VIAL IV ONE (11:45)
--- NOTE | 2021-05-05 12:01 | History & Physical-Hospitalist ---
History of Present Illness HPI/Chief Complaint CC: Nausea and vomiting with severe hypokalemia HPI: This is a 45yoWF clinic Pt of [facility] who has a history of hyperemesis cannabis who presented with nausea and vomiting and severe hypokalemia with weakness. Her potassium was 2.2. Pt will be placed on IV supplement of potassium and fluids, antiemetics and pain medication. Source: patient Exam Limitations: clinical condition (Nausea vomiting) Date Seen 05/05/21 Time Seen by a Provider: 12:00 Attending Physician Hyun Salvador DO [facility] Referring Physician Date of Admission May 05, 2021 at 11:09 Home Medications & Allergies Home Medications Reviewed patient Home Medication Reconciliation performed by pharmacy medication reconciliations explosive technician and/or nursing. Patients Allergies have been reviewed. Allergies Allergies Coded Allergies morphine (Verified Allergy, Unknown, CAUSES "REBOUND HEADACHES", 12/13/20) PT HAS RECEIVED LORTAB & OXYCODONE IN THE PAST baclofen (Verified Adverse Reaction, Severe, 12/13/20) PATIENT UNAWARE OF REACTION BUT WAS HOSPITALIZED AFTER TAKING MEDICATION AND WAS TOLD IT WAS A REACTION DUE TO THE MEDICATION SHE TOOK. meloxicam (Verified Adverse Reaction, Severe, 12/13/20) PATIENT UNAWARE OF REACTION BUT WAS HOSPITALIZED AFTER TAKING MEDICATION AND WAS TOLD IT WAS A REACTION DUE TO THE MEDICATION SHE TOOK. NSAIDS (Non-Steroidal Anti-Inflamma (Verified Adverse Reaction, Mild, have IBS and avoid NSAIDS, 12/13/20) Past Xavahnc-Ckrjvx-Opdbxs Hx Patient Social History Marrital Status: single Employed/Student: unemployed Smoking Status: Never a Smoker Substance use?: No Additional substance use comme: DENIES USE AT THIS TIME. Alcohol Use?: No Immunizations Up To Date Date of Influenza Vaccine: Mar 03, 2015 First/Initial COVID19 Vaccinat: n/a Tetanus Booster (TDap): Unknown Hepatitis A: Yes Hepatitis B: Yes PED Vaccines UTD: No Date of Pneumonia Vaccine: Mar 03, 2014 Seasonal Allergies Seasonal Allergies: No Current Status Communicates: Verbally Primary Language: Barbadian Preferred Spoken Language: Barbadian Past Medical History Surgeries: Abdominal, Bladder Surgery, Gallbladder, 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, Oophorectomy, Tubal Ligation Asthma Currently Using CPAP: No Currently Using BIPAP: No Hypertension, Syncope Seizure Disorder VERIFICATION REP History: 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 Sexually Transmitted Disease: Yes (HPV) HIV/AIDS: No Bladder Infection Gastroesophageal Reflux, Diverticulosis, Esophagitis, Hiatal Hernia, Gall Bladder Disease Chronic Back Pain Loss of Vision: Denies Hearing Impairment: Denies Uterine Anxiety, Depression Blood Disorders: No Adverse Reaction/Blood Tranf: No 1. IRRITABLE BOWEL SYNDROME 2. DEPRESSION 3. MOOD DISORDER 4. CHRONIC BACK PAIN 5. HYSTERECTOMY 6. TUBAL LIGATION 7. BLADDER "TIE UP" 8. TONSILLECTOMY 9. SEIZURES Family Medical History Diabetes mellitus 19 FATHER FHx: brain tumor 19 MOTHER HPV infection G8 SISTER No Family History of: AIDS Abdominal aortic aneurysm [place]'s disease Alcoholism Alzheimer's disease Aphasia Arthritis Asthma Cancer of mouth Cardiovascular disease Cataracts Colon cancer Completed stroke Congenital disease Congenital heart disease Coronary thrombosis Cystic fibrosis Deafness or hearing loss Dementia Drug abuse Dysphasia Fibrocystic disease of breast Gastroenteritis Glaucoma Headache disorder Hypercholesterolemia Hypertension Infertility Kidney disease Myocardial infarction Neoplasm Not obtainable due to adoption Osteoporosis Parkinson's disease Prostate cancer Psychosocial problem Respiratory disorder Seizure disorder Severe allergy Thyroid disease Tuberculosis Visual disorder Heart Disease, Hypertension SOCIAL HISTORY: -SMOKING -ETOH- -DRUGS--CHRONIC MARIJUANA USE PAST SURGICAL HISTORY: -09/20/20--LAPAROSCOPY FOR INTUSSCEPTION BY DR. BHATTI -08/24/20 --EGD/COLONOSCOPY--DX GASTRITIS/ESOPHAGITIS -01/16/21--EGD BY DR. BHATTI--DX GASTRITIS/ESOPHAGITIS/SMALL HIATAL HERNIA -CHOLECYSTECTOMY -BILATERAL TUBAL LIGATION -HYSTERECTOMY/BILATERAL SALPINGO-OOPHORECTOMY 2005 -BLADDER SLING/LATER REMOVED -CARDIAC CATH 2012--NORMAL Review of Systems Constitutional: see HPI EENTM: no symptoms reported Respiratory: no symptoms reported Cardiovascular: no symptoms reported Gastrointestinal: loss of appetite, nausea, vomiting Musculoskeletal: no symptoms reported Skin: no symptoms reported Psychiatric/Neurological: No Symptoms Reported All Other Systems Reviewed Negative Unless Noted: Yes Physical Exam Physical Exam Vital Signs Vital Signs - First Documented 05/05/21 05/05/21 05/05/21 08:47 11:51 14:09 Temp 36.0 Pulse 118 Resp 24 B/P (MAP) 136/93 (107) Pulse Ox 98 O2 Delivery Room Air O2 Flow Rate 2.00 FiO2 21 Capillary Refill : Less Than 3 Seconds Height, Weight, BMI Height: 5'6.00" Weight: 203lbs. 6.4oz. 92.257765ug; 26.00 BMI Method:Stated General Appearance: No Apparent Distress, Chronically ill Eyes: Right Eye Normal Inspection, Right Eye PERRL HEENT: PERRL/EOMI, Normal ENT Inspection, Pharynx Normal, Moist Mucous Membranes Neck: Full Range of Motion, Normal Inspection, Non Tender Respiratory: Chest Non Tender, Lungs Clear, Normal Breath Sounds, No Accessory Muscle Use, No Respiratory Distress Cardiovascular: Regular Rate, Rhythm, No Edema, No Gallop, No JVD, No Murmur, Normal Peripheral Pulses Gastrointestinal: Normal Bowel Sounds, No Organomegaly, No Pulsatile Mass, Non Tender, Soft Back: Normal Inspection, No CVA Tenderness, No Vertebral Tenderness Extremity: Normal Capillary Refill, Normal Inspection, Normal Range of Motion, Non Tender, No Calf Tenderness, No Pedal Edema Neurologic/Psychiatric: Alert, Oriented x3, No Motor/Sensory Deficits, Normal Mood/Affect Skin: Normal Color, Warm/Dry Lymphatic: No Adenopathy Results Results/Procedures Labs Laboratory Tests 05/05/21 10:10 Patient resulted labs reviewed. Assessment/Plan Admission Diagnosis Assessment: Hyperemesis cannabis Hypokalemia GERD Chronic abdominal pain Plan: Supportive care Replace potassium Admission Status: Observation Diagnosis/Problems Diagnosis/Problems (1) Nausea and vomiting Status: Acute (2) Tetrahydrocannabinol (THC) dependence (3) Hypokalemia Status: Acute HYUN SALVADOR DO May 05, 2021 12:01
[2021-05-05 12:30] VITALS: BP 142/82
[2021-05-05] MEDS ORDERED: ONDANSETRON 4 MG/2 ML (SDV) Z0FRAN IVP PRN (12:45)
[2021-05-05] MEDS ORDERED: LORazepam INJ 2 MG/ML (ATIVAN) VIAL IVP PRN (12:45)
[2021-05-05] MEDS ORDERED: ACETAMINOPHEN 500 MG TAB (TYLENOL) PO PRN (12:45)
[2021-05-05] MEDS ORDERED: PROMETHAZINE INJ 25 MG/ML (PHENERGAN) AMP IM PRN (12:45)
[2021-05-05] MEDS ORDERED: HALOPERIDOL 5 MG/ML (HALDOL) VIAL IM PRN (12:45)
[2021-05-05] MEDS ORDERED: CALCIUM CARBONATE 500 MG (TUMS) TAB.CHEW PO PRN (12:45)
[2021-05-05] MEDS: NS IV 1000 ML 1,000 ML IV SCH ×2 (12:51→20:56)
[2021-05-05] MEDS: ENOXAPARIN 40 MG/0.4 ML (LOVENOX) SYR SC SCH (12:54)
[2021-05-05 14:09] VITALS: BP 136/93
[2021-05-05] MEDS ORDERED: FAMO20TA5 PO (14:50)
[2021-05-05] MEDS ORDERED: RT-ALBUTEROL SULF 2.5 MG/3 ML PRE-MIX VIAL INH PRN (15:00)
[2021-05-05] MEDS: fentaNYL INJ 100 MCG/2 ML AMP IVP PRN ×2 (15:11→16:33)
[2021-05-05 16:00] VITALS: BP 128/70
[2021-05-05 20:00] VITALS: BP 151/85
[2021-05-05] MEDS: RT-ALBUTEROL SULF 2.5 MG/3 ML PRE-MIX VIAL INH SCH (22:01)
[2021-05-05 22:49] LABS: BILIRUBIN,URINE NEGATIVE (NEGATIVE); CLARITY,URINE CLEAR; COLOR,URINE YELLOW; GLUCOSE, URINE (UA) NEGATIVE (NEGATIVE); KETONES,URINE NEGATIVE (NEGATIVE); LEUKOCYTE ESTERASE ,URINE NEGATIVE (NEGATIVE); NITRITE,URINE NEGATIVE (NEGATIVE); PROTEIN,URINE NEGATIVE (NEGATIVE)
[2021-05-05 23:00] LABS: BACTERIA,URINE FEW /HPF; RBC,URINE 0-2 /HPF
[2021-05-05 23:01] LABS: AMPHETAMINE SCREEN, URINE NEGATIVE (NEGATIVE); BARBITURATE SCREEN URINE NEGATIVE (NEGATIVE); BENZODIAZEPINES SCREEN URINE POSITIVE (NEGATIVE); CANNABINOID SCREEN, URINE NEGATIVE (NEGATIVE); COCAINE SCREEN URINE NEGATIVE (NEGATIVE); METHADONE STAT NEGATIVE (NEGATIVE); METHAMPHETAMINE SCREEN URINE S NEGATIVE (NEGATIVE); OPIATE SCREEN URINE NEGATIVE (NEGATIVE); OXYCODONE STAT NEGATIVE (NEGATIVE); PROPOXYPHENE STAT NEGATIVE (NEGATIVE); SQUAMOUS EPITHELIAL CELL,UR 0-2 /HPF; TRICYCLIC ANTIDEPRESSANTS SCRE NEGATIVE (NEGATIVE)
[2021-05-06] VITALS (7 sets, daily range): BP systolic 123–169; BP diastolic 78–93
[2021-05-06] MEDS: NS IV 1000 ML 1,000 ML IV SCH ×4 (00:09→17:00)
[2021-05-06] MEDS: fentaNYL INJ 100 MCG/2 ML AMP IVP PRN (06:34)
[2021-05-06 06:49] LABS: BASOPHILS % (AUTO) 0 % (0-10); EOSINOPHILS % (AUTO) 1 % (0-10); HEMATOCRIT 37 % (35-52); HEMOGLOBIN 12.1 g/dL (11.5-16.0); LYMPHOCYTES # (AUTO) 1.8 10^3/uL (1.0-4.0); LYMPHOCYTES % (AUTO) 29 % (12-44); MEAN CORPUSCULAR HEMOGLOBIN 27 pg (25-34); MEAN CORPUSCULAR HGB CONC 32 g/dL (32-36); MEAN CORPUSCULAR VOLUME 84 fL (80-99); MEAN PLATELET VOLUME 9.7 fL (9.0-12.2); MONOCYTES # (AUTO) 0.5 10^3/uL (0.0-1.0); MONOCYTES % (AUTO) 8 % (0-12); NEUTROPHILS # (AUTO) 3.8 10^3/uL (1.8-7.8); NEUTROPHILS % (AUTO) 62 % (42-75); PLATELET COUNT 434 10^3/uL (130-400); WHITE BLOOD COUNT 6.1 10^3/uL (4.3-11.0)
[2021-05-06 07:03] LABS: ALBUMIN 3.4 GM/DL (3.2-4.5)
[2021-05-06 07:05] LABS: CALCIUM 8.7 MG/DL (8.5-10.1)
[2021-05-06 07:06] LABS: TOTAL PROTEIN 6.3 GM/DL (6.4-8.2)
[2021-05-06 07:08] LABS: BILIRUBIN,TOTAL 0.4 MG/DL (0.1-1.0)
[2021-05-06] MEDS: RT-ALBUTEROL SULF 2.5 MG/3 ML PRE-MIX VIAL INH SCH ×2 (07:09→18:42)
[2021-05-06 07:10] LABS: CREATININE SERUM 0.75 MG/DL (0.60-1.30)
[2021-05-06 07:14] LABS: POTASSIUM 2.5 MMOL/L (3.6-5.0)
[2021-05-06] MEDS: POTASSIUM CL 10MEQ/50ML IVPB 50 ML IV SCH ×8 (08:08→15:55)
--- NOTE | 2021-05-06 09:09 | Progress Note - Hospitalist ---
Subjective HPI/CC On Admission Date Seen by Provider: May 06, 2021 Time Seen by Provider: 11:00 CC: Nausea and vomiting with severe hypokalemia HPI: This is a 45yoWF clinic Pt of [facility] who has a history of hyperemesis cannabis who presented with nausea and vomiting and severe hypokalemia with weakness. Her potassium was 2.2. Pt will be placed on IV supplement of potassium and fluids, antiemetics and pain medication. Subjective/Events-last exam Patient doing much better Haldol Ativan and fentanyl really made her too drowsy Potassium 2.5 giving 80 mEq IV over 8 hours We will discontinue fentanyl and give her oxycodone Home meds restarted Blood pressure elevated Review of Systems General: Fatigue, Malaise Objective Exam Vital Signs Vital Signs Date Time Temp Pulse Resp B/P (MAP) Pulse Ox O2 Delivery O2 Flow Rate FiO2 05/07/21 04:05 36.0 98 20 155/82 (106) 94 Room Air 05/06/21 20:00 2.00 05/05/21 14:09 21 Capillary Refill : Less Than 3 Seconds General Appearance: No Apparent Distress, WD/WN, Chronically ill, Obese Respiratory: Lungs Clear, Normal Breath Sounds Cardiovascular: Regular Rate, Rhythm Neurologic/Psychiatric: Alert, Oriented x3 Results/Procedures Lab Laboratory Tests 05/06/21 06:30 Patient resulted labs reviewed. Assessment/Plan Assessment and Plan Assess & Plan/Chief Complaint Assessment: Hyperemesis cannabis Hypokalemia GERD Chronic abdominal pain Plan: Supportive care Replace potassium 05/06/2021: Decrease rate of IV fluid Regular diet Ambulate Diagnosis/Problems Diagnosis/Problems (1) Nausea and vomiting Status: Acute (2) Tetrahydrocannabinol (THC) dependence (3) Hypokalemia Status: Acute JOSE RUIZ DO May 06, 2021 09:09
[2021-05-06] MEDS: ACETAMINOPHEN 325 MG TABLET PO PRN (09:36)
[2021-05-06] MEDS ORDERED: cloNIDine 0.1 MG (CATAPRES) TAB PO PRN (12:30)
[2021-05-06] MEDS: ENOXAPARIN 40 MG/0.4 ML (LOVENOX) SYR SC SCH (13:25)
[2021-05-06] MEDS: DICYCLOMINE 10 MG (BENTYL) CAP PO SCH ×2 (16:59→20:29)
[2021-05-06] MEDS: FAMOTIDINE 20 MG (PEPCID) TABLET PO SCH (20:29)
[2021-05-07] MEDS: ACETAMINOPHEN 325 MG TABLET PO PRN ×2 (03:27→12:56)
[2021-05-07 04:05] VITALS: BP 155/82
[2021-05-07] MEDS: DICYCLOMINE 10 MG (BENTYL) CAP PO SCH ×4 (06:27→20:01)
[2021-05-07] MEDS: RT-ALBUTEROL SULF 2.5 MG/3 ML PRE-MIX VIAL INH SCH ×2 (07:01→21:07)
[2021-05-07 07:11] LABS: BASOPHILS % (AUTO) 0 % (0-10); EOSINOPHILS % (AUTO) 1 % (0-10); HEMATOCRIT 35 % (35-52); LYMPHOCYTES # (AUTO) 2.1 10^3/uL (1.0-4.0); LYMPHOCYTES % (AUTO) 39 % (12-44); MEAN CORPUSCULAR HEMOGLOBIN 27 pg (25-34); MEAN CORPUSCULAR HGB CONC 32 g/dL (32-36); MEAN CORPUSCULAR VOLUME 85 fL (80-99); MEAN PLATELET VOLUME 9.5 fL (9.0-12.2); MONOCYTES # (AUTO) 0.4 10^3/uL (0.0-1.0); MONOCYTES % (AUTO) 8 % (0-12); NEUTROPHILS # (AUTO) 2.9 10^3/uL (1.8-7.8); NEUTROPHILS % (AUTO) 53 % (42-75); PLATELET COUNT 388 10^3/uL (130-400); WHITE BLOOD COUNT 5.5 10^3/uL (4.3-11.0)
[2021-05-07 07:20] VITALS: BP 143/89
[2021-05-07 07:32] LABS: ALBUMIN 3.2 GM/DL (3.2-4.5); BILIRUBIN,TOTAL 0.4 MG/DL (0.1-1.0); CALCIUM 8.7 MG/DL (8.5-10.1); CREATININE SERUM 0.68 MG/DL (0.60-1.30); MAGNESIUM 2.3 MG/DL (1.6-2.4); TOTAL PROTEIN 5.9 GM/DL (6.4-8.2)
[2021-05-07 07:34] LABS: POTASSIUM 2.4 MMOL/L (3.6-5.0)
[2021-05-07] MEDS: FAMOTIDINE 20 MG (PEPCID) TABLET PO SCH ×2 (07:46→20:01)
[2021-05-07] MEDS: NS IV 1000 ML 1,000 ML IV SCH (07:47)
[2021-05-07] MEDS: POTASSIUM CL 10MEQ/50ML IVPB 50 ML IV SCH ×8 (08:05→15:34)
[2021-05-07] MEDS: KCL 20 MEQ TAB (K-DUR) PO SCH ×3 (08:05→17:14)
[2021-05-07] MEDS ORDERED: SPIRONOLACTONE 25 MG (ALDACTONE) TAB PO SCH (09:00)
[2021-05-07] MEDS: ENOXAPARIN 40 MG/0.4 ML (LOVENOX) SYR SC SCH (11:30)
[2021-05-07 11:34] VITALS: BP 153/89
--- NOTE | 2021-05-07 12:11 | Progress Note - Hospitalist ---
Subjective HPI/CC On Admission Date Seen by Provider: May 07, 2021 Time Seen by Provider: 11:00 CC: Nausea and vomiting with severe hypokalemia HPI: This is a 45yoWF clinic Pt of [facility] who has a history of hyperemesis cannabis who presented with nausea and vomiting and severe hypokalemia with weakness. Her potassium was 2.2. Pt will be placed on IV supplement of potassium and fluids, antiemetics and pain medication. Subjective/Events-last exam Patient doing pretty well but potassium still 2.4 80 mEq IV ordered along with spironolactone 50 mg twice daily to help stymie the potassium loss Check meds and labs Bowels are moving Lovenox for immobile state Encouraged to ambulate Review of Systems General: Fatigue Objective Exam Vital Signs Vital Signs Date Time Temp Pulse Resp B/P (MAP) Pulse Ox O2 Delivery O2 Flow Rate FiO2 05/07/21 11:34 37.1 94 20 153/89 (110) 95 Room Air 05/07/21 07:24 2.00 05/05/21 14:09 21 Capillary Refill : Less Than 3 Seconds General Appearance: No Apparent Distress, WD/WN, Chronically ill Respiratory: Lungs Clear, Normal Breath Sounds Cardiovascular: Regular Rate, Rhythm Neurologic/Psychiatric: Alert, Oriented x3, No Motor/Sensory Deficits, Normal Mood/Affect Results/Procedures Lab Laboratory Tests 05/07/21 06:12 Patient resulted labs reviewed. Assessment/Plan Assessment and Plan Assess & Plan/Chief Complaint Assessment: Hyperemesis cannabis Hypokalemia GERD Chronic abdominal pain Plan: Supportive care Replace potassium 05/06/2021: Decrease rate of IV fluid Regular diet Ambulate 05/07/2021: Decrease IV fluids Potassium Spironolactone Diagnosis/Problems Diagnosis/Problems (1) Nausea and vomiting Status: Acute (2) Tetrahydrocannabinol (THC) dependence (3) Hypokalemia Status: Acute JOSE RUIZ DO May 07, 2021 12:11
--- NOTE | 2021-05-07 12:54 | Diagnostic Imaging Report ---
INDICATION: Pain. 2 views were obtained FINDINGS: The alignment of the right shoulder is normal. There is no fracture or dislocation. Right lung is clear. Soft tissues are unremarkable. IMPRESSION: No focal abnormality in the right shoulder. Dictated by: Dictated on workstation # [id number]
[2021-05-07] MEDS: DICLOFENAC 1% GEL 100 GM (VOLTAREN) TUBE TOP SCH ×3 (14:49→20:01)
[2021-05-07 16:00] VITALS: BP 172/97
[2021-05-07 19:54] VITALS: BP 156/104
[2021-05-07] MEDS: SPIRONOLACTONE 25 MG (ALDACTONE) TAB PO SCH (20:01)
[2021-05-07 23:55] VITALS: BP 147/70
[2021-05-08] MEDS: NS IV 1000 ML 1,000 ML IV SCH (00:32)
[2021-05-08 04:25] VITALS: BP 138/89
[2021-05-08] MEDS: ACETAMINOPHEN 325 MG TABLET PO PRN (04:30)
[2021-05-08] MEDS: DICYCLOMINE 10 MG (BENTYL) CAP PO SCH (05:36)
[2021-05-08 06:03] LABS: BASOPHILS % (AUTO) 1 % (0-10); EOSINOPHILS # (AUTO) 0.1 10^3/uL (0.0-0.3); EOSINOPHILS % (AUTO) 2 % (0-10); HEMATOCRIT 34 % (35-52); HEMOGLOBIN 10.4 g/dL (11.5-16.0); LYMPHOCYTES # (AUTO) 2.3 10^3/uL (1.0-4.0); LYMPHOCYTES % (AUTO) 50 % (12-44); MEAN CORPUSCULAR HEMOGLOBIN 27 pg (25-34); MEAN CORPUSCULAR HGB CONC 31 g/dL (32-36); MEAN CORPUSCULAR VOLUME 86 fL (80-99); MEAN PLATELET VOLUME 9.5 fL (9.0-12.2); MONOCYTES # (AUTO) 0.4 10^3/uL (0.0-1.0); MONOCYTES % (AUTO) 9 % (0-12); NEUTROPHILS # (AUTO) 1.8 10^3/uL (1.8-7.8); NEUTROPHILS % (AUTO) 38 % (42-75); PLATELET COUNT 381 10^3/uL (130-400); WHITE BLOOD COUNT 4.6 10^3/uL (4.3-11.0)
[2021-05-08 06:19] LABS: CHLORIDE 104 MMOL/L (98-107); POTASSIUM 2.9 MMOL/L (3.6-5.0); SODIUM 143 MMOL/L (135-145)
[2021-05-08 06:20] LABS: CALCIUM 8.7 MG/DL (8.5-10.1)
[2021-05-08 06:21] LABS: GLUCOSE 101 MG/DL (70-105); TOTAL PROTEIN 5.5 GM/DL (6.4-8.2)
[2021-05-08 06:22] LABS: CARBON DIOXIDE 28 MMOL/L (21-32)
[2021-05-08 06:23] LABS: BILIRUBIN,TOTAL 0.3 MG/DL (0.1-1.0)
[2021-05-08 06:25] LABS: ALKALINE PHOSPHATASE 58 U/L (40-136); CREATININE SERUM 0.68 MG/DL (0.60-1.30); GFR ESTIMATED 94
[2021-05-08 06:26] LABS: BUN/CREATININE RATIO 3
[2021-05-08 06:28] LABS: ALANINE AMINOTRANSFERASE 26 U/L (0-55)
[2021-05-08] MEDS: RT-ALBUTEROL SULF 2.5 MG/3 ML PRE-MIX VIAL INH SCH (07:09)
[2021-05-08 07:12] VITALS: BP 138/89
[2021-05-08 07:30] VITALS: BP 165/92
[2021-05-08] MEDS: KCL 20 MEQ TAB (K-DUR) PO SCH (08:24)
[2021-05-08] MEDS: SPIRONOLACTONE 25 MG (ALDACTONE) TAB PO SCH (08:25)
[2021-05-08] MEDS: FAMOTIDINE 20 MG (PEPCID) TABLET PO SCH (08:25)
[2021-05-08] MEDS: DICLOFENAC 1% GEL 100 GM (VOLTAREN) TUBE TOP SCH (09:18)
--- NOTE | 2021-05-08 11:11 | Discharge Summary ---
Diagnosis/Chief Complaint Date of Admission May 06, 2021 at 11:09 Date of Discharge 05/08/21 Discharge Summary-Simple/Stand Consultations Discharge Physical Examination Allergies: Coded Allergies: morphine (Verified Allergy, Unknown, CAUSES "REBOUND HEADACHES", 12/13/20) PT HAS RECEIVED LORTAB & OXYCODONE IN THE PAST baclofen (Verified Adverse Reaction, Severe, 12/13/20) PATIENT UNAWARE OF REACTION BUT WAS HOSPITALIZED AFTER TAKING MEDICATION AND WAS TOLD IT WAS A REACTION DUE TO THE MEDICATION SHE TOOK. meloxicam (Verified Adverse Reaction, Severe, 12/13/20) PATIENT UNAWARE OF REACTION BUT WAS HOSPITALIZED AFTER TAKING MEDICATION AND WAS TOLD IT WAS A REACTION DUE TO THE MEDICATION SHE TOOK. NSAIDS (Non-Steroidal Anti-Inflamma (Verified Adverse Reaction, Mild, have IBS and avoid NSAIDS, 12/13/20) Vitals & I&Os Vital Sign - Last 12Hours Date Time Temp Pulse Resp B/P (MAP) Pulse Ox O2 Delivery O2 Flow Rate FiO2 05/08/21 07:30 36.8 85 18 165/92 (116) 97 Room Air 05/08/21 07:12 21 05/08/21 07:08 2.00 Intake and Output 05/08/21 00:00 Intake Total 1530 ml Output Total 1850 ml Balance -320 ml General Appearance: Alert, Oriented X3, Cooperative, No Acute Distress HEENT: Mucous Memb Moist/[place] Respiratory: Clear to Auscultation, Normal Air Movement Cardiovascular: Regular Rate, No Murmurs Abdominal: Normal Bowel Sounds, Soft, No Tenderness, No Masses Extremities: No Edema, No Tenderness/Swelling Skin: No Rashes, No Breakdown Neuro: Normal Speech, Cranial Nerves 3-12 NL Psych/Mental Status: Mental Status NL, Mood NL Hospital Course Was the Problem List Reviewed?: Yes See final discharge diagnosis. Discharge Condition at discharge Stable Instructions to patient/family Please see electronic discharge instructions given to patient. Discharge Medications Reviewed and agree with Discharge Medication list on patient's Discharge Instruction sheet KRYSTIN RAMOS MD May 08, 2021 11:11
[2021-05-08] MEDS ORDERED: POTA-169 PO (11:13)
[2021-05-08] MEDS ORDERED: SPIR25TA5 PO (11:13)
--- NOTE | 2021-05-08 11:14 | Discharge Summary ---
Discharge [facility] Reconcile Patient Problems Problems Reviewed?: Yes Discharge Medications New, Converted or Re-Newed RX: Transmitted to Pharmacy New Medications: Potassium Chloride (Klor-Con M20) 20 Meq Tab.er.prt 20 MEQ PO DAILY, #30 Spironolactone (Spironolactone) 25 Mg Tablet 50 MG PO BID, #60 TAB Continued Medications: Famotidine (Famotidine) 20 Mg Tablet 20 MG PO BID, TAB Patient Instructions Goal/Follow Up Appt: F/u with PCP next week Patient Instructions: Patient will need labs on Saturday, Activity & Diet Discharge Diet: No Restrictions KRYSTIN RAMOS MD May 08, 2021 11:14
[2021-05-08 11:32] VITALS: BP 145/85
[2021-05-08 13:11] VITALS: BP 145/85
== END 2021-05-08 12:30 | disposition home or self-care (01) | DRG 392 ==
LOC: EDUNIT# 08:19 → ER 08:20 → 4TH 11:09 → OBSVTOIN 05-06 11:09
PROVIDERS: ADMIT Internal Medicine; ATTEND Family Medicine
DX: R11.2 Nausea with vomiting, unspecified (principal); E87.6 Hypokalemia; K21.9 Gastro-esophageal reflux disease without esophagitis; I10 Essential (primary) hypertension; G40.909 Epilepsy, unspecified, not intractable, without status epilepticus; F41.9 Anxiety disorder, unspecified; F32.A Depression, unspecified; F12.20 Cannabis dependence, uncomplicated; Z88.6 Allergy status to analgesic agent; Z88.5 Allergy status to narcotic agent; Z79.899 Other long term (current) drug therapy
CPT/HCPCS: 36415; 73030; 80053; 80306; 80320; 81000; 83690; 83735; 84703; 85007; 85025; 85027; 87088; 93005; 94640; 94760

== ENCOUNTER 2021-05-13 08:37 | Emergency (ER) | payer SELFPAY ==
[~2021-05-13] VITALS: Ht 167 cm; Wt 75.0 kg
[~2021-05-13 08:37] MED LIST changes: +POTA-169 PO; +SPIR25TA5 PO
[2021-05-13] MEDS ORDERED: NS IV 1000 ML 1,000 ML IV SCH ×2 (09:00→11:30)
--- NOTE | 2021-05-13 09:13 | ED GI ---
General Stated Complaint: VOMITING History of Present Illness Date Seen by Provider: May 13, 2021 Time Seen by Provider: 09:00 Initial Comments This is a 45 YO female presenting to the ED with nausea and vomiting starting at 1:00 am today. She has had 4 episodes of non-bloody vomit today and no improvement with Zofran at home. Pt has been seen in the ER frequently for episodes of nausea/vomiting like this and pt states this is similar to those episodes. She has been diagnosed with cyclic vomiting syndrome due to cannabis u se, but pt states she has not used marijuana since April 09. Associated Symptoms: No Chest Pain, No Fever/Chills; Nausea/Vomiting (LEONIDES RAYMOND MED STUDENT) Allergies and Home Medications Allergies Coded Allergies: morphine (Verified Allergy, Unknown, CAUSES "REBOUND HEADACHES", 12/13/20) PT HAS RECEIVED LORTAB & OXYCODONE IN THE PAST baclofen (Verified Adverse Reaction, Severe, 12/13/20) PATIENT UNAWARE OF REACTION BUT WAS HOSPITALIZED AFTER TAKING MEDICATION AND WAS TOLD IT WAS A REACTION DUE TO THE MEDICATION SHE TOOK. meloxicam (Verified Adverse Reaction, Severe, 12/13/20) PATIENT UNAWARE OF REACTION BUT WAS HOSPITALIZED AFTER TAKING MEDICATION AND WAS TOLD IT WAS A REACTION DUE TO THE MEDICATION SHE TOOK. NSAIDS (Non-Steroidal Anti-Inflamma (Verified Adverse Reaction, Mild, have IBS and avoid NSAIDS, 12/13/20) Patient Home Medication List Home Medication List Reviewed: Yes (ARIELLA WARNER MD) Famotidine (Famotidine) 20 Mg Tablet, 20 MG PO BID, (Reported) Entered as Reported by: ZAIRA ARCHER on 05/05/21 1450 Potassium Chloride (Klor-Con M20) 20 Meq Tab.er.prt, 20 MEQ PO DAILY Prescribed by: KRYSTIN RAMOS on 05/08/21 1113 Spironolactone (Spironolactone) 25 Mg Tablet, 50 MG PO BID Prescribed by: KRYSTIN RAMOS on 05/08/21 1113 Tramadol HCl (Tramadol HCl) 50 Mg Tablet, 50 MG PO Q6H PRN for abdominal pain Prescribed by: ARIELLA WARNER on 05/13/21 1304 Review of Systems Review of Systems Constitutional: No chills, No fever EENTM: No Blurred Vision, No Double Vision Respiratory: Denies Cough, Denies Shortness of Air Cardiovascular: Denies Chest Pain, Denies Edema Gastrointestinal: Nausea, Vomiting Genitourinary: No Symptoms Reported Musculoskeletal: No back pain, No muscle pain Skin: no symptoms reported Psychiatric/Neurological: Denies Headache, Denies Numbness Endocrine: Denies Excessive Sweating, Denies Flushing Hematologic/Lymphatic: No Symptoms Reported (LEONIDES RAYMOND STUDENT) All Other Systems Reviewed Negative Unless Noted: Yes (Negative excepted noted.) (LEONIDES RAYMOND STUDENT) Past Mfpqgis-Iupxqs-Okskcy Hx Immunizations Up To Date Tetanus Booster (TDap): Unknown PED Vaccines UTD: No First/Initial COVID19 Vaccinat: n/a Second COVID19 Vaccination Marv: n/a Third COVID19 Vaccination Date: n/a (LEONIDES RAYMOND) Seasonal Allergies Seasonal Allergies: No (LEONIDES RAYMOND) Past Medical History Surgery/Hospitalization HX: TONSILLECTOMY HYSTERECTOMY BILATERAL TUBAL LIGATION CHOLECYSTECTOMY LAPAROSCOPY 09/19/[address] BHATTI FOR INTUSSUCEPTION EGD'S--LAST ONE 01/16/[address] BHATTI--SHOWED GASTRITIS, SMALL HIATAL. COLONOSCOPIES--LAST ONE 08/24/20 WAS NORMAL HERNIA, ESOPHAGITIS Surgeries: Yes Abdominal, Bladder Surgery, Gallbladder, 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, Oophorectomy, Tubal Ligation Respiratory: Yes Asthma Currently Using CPAP: No Currently Using BIPAP: No Cardiac: Yes Hypertension, Syncope Neurological: Yes (Tremors) Seizure Disorder 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 Disorders: Yes (2005--NO PHYSICIAN DOCUMENTATION OF ANY KIND OF CANCER) 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 Disorders: Denies [employer]ULT [employer]CHO[employer] TE[employer]ER History: 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 Sexually Transmitted Disease: Yes (HPV) HIV/AIDS: No Genitourinary: Yes Bladder Infection Gastrointestinal: Yes (History of cyclic vomiting and cannabis hyperemesis;CHRONIC N/V/ABD PAIN ) Gastroesophageal Reflux, Diverticulosis, Esophagitis, Hiatal Hernia, Gall Bladder Disease Musculoskeletal: Yes Chronic Back Pain Endocrine: No HEENT: Yes (POOR DENTITION) Loss of Vision: Denies Hearing Impairment: Denies Cancer: Yes Uterine Psychosocial: Yes (THC USE) Anxiety, Depression Integumentary: No Blood Disorders: No Adverse Reaction/Blood Tranf: No (LEONIDES RAYMOND STUDENT) Family Medical History Diabetes mellitus 19 FATHER FHx: brain tumor 19 MOTHER HPV infection G8 SISTER No Family History of: AIDS Abdominal aortic aneurysm Madi's disease Alcoholism Alzheimer's disease Aphasia Arthritis Asthma Cancer of mouth Cardiovascular disease Cataracts Colon cancer Completed stroke Congenital disease Congenital heart disease Coronary thrombosis Cystic fibrosis Deafness or hearing loss Dementia Drug abuse Dysphasia Fibrocystic disease of breast Gastroenteritis Glaucoma Headache disorder Hypercholesterolemia Hypertension Infertility Kidney disease Myocardial infarction Neoplasm Not obtainable due to adoption Osteoporosis Parkinson's disease Prostate cancer Psychosocial problem Respiratory disorder Seizure disorder Severe allergy Thyroid disease Tuberculosis Visual disorder Heart Disease, Hypertension SOCIAL HISTORY: -SMOKING -ETOH- -DRUGS--CHRONIC MARIJUANA USE PAST SURGICAL HISTORY: -09/20/20--LAPAROSCOPY FOR INTUSSCEPTION BY DR. BHATTI -08/24/20 --EGD/COLONOSCOPY--DX GASTRITIS/ESOPHAGITIS -01/16/21--EGD BY DR. BHATTI--DX GASTRITIS/ESOPHAGITIS/SMALL HIATAL HERNIA -CHOLECYSTECTOMY -BILATERAL TUBAL LIGATION -HYSTERECTOMY/BILATERAL SALPINGO-OOPHORECTOMY 2005 -BLADDER SLING/LATER REMOVED -CARDIAC CATH 2012--NORMAL (LEONIDES RAYMOND MED STUDENT) Physical Exam Vital Signs Vital Signs - First Documented 05/13/21 05/13/21 09:26 11:50 Temp 37.0 Pulse 112 Resp 18 B/P (MAP) 180/100 (126) Pulse Ox 99 (ARIELLA WARNER MD) Vital Signs Capillary Refill : (LEONIDES RAYMOND MED STUDENT) Height/Weight/BMI Height: 5'6.00" Weight: 203lbs. 6.4oz. [id number]; 26.06 BMI Method:Stated General Appearance: WD/WN, other (appears uncomfortable) HEENT: PERRL/EOMI; No scleral icterus (R), No scleral icterus (L) Neck: supple, normal inspection Respiratory: lungs clear, normal breath sounds, no respiratory distress, no accessory muscle use Cardiovascular: regular rate, rhythm, no edema Gastrointestinal: soft, other (mild diffuse tenderness, no guarding, rebound, or rigidity) Extremities: normal range of motion, normal inspection Back: normal inspection; No decreased range of motion Neurologic/Psychiatric: no motor/sensory deficits, alert, oriented x 3 Skin: normal color, warm/dry (LEONIDES RAYMOND MED STUDENT) Progress/Results/Core Measures Results/Orders Lab Results Laboratory Tests Test 05/13/21 09:15 05/13/21 12:28 Range/Units White Blood Count 8.1 4.3-11.0 10^3/uL Red Blood Count 4.54 3.80-5.11 10^6/uL Hemoglobin 12.2 11.5-16.0 g/dL Hematocrit 39 35-52 % Mean Corpuscular Volume 85 80-99 fL Mean Corpuscular Hemoglobin 27 25-34 pg Mean Corpuscular Hemoglobin Concent 32 32-36 g/dL Red Cell Distribution Width 16.6 H 10.0-14.5 % Platelet Count 469 H 130-400 10^3/uL Mean Platelet Volume 9.4 9.0-12.2 fL Immature Granulocyte % (Auto) 0 % Neutrophils (%) (Auto) 81 H 42-75 % Lymphocytes (%) (Auto) 13 12-44 % Monocytes (%) (Auto) 6 0-12 % Eosinophils (%) (Auto) 0 0-10 % Basophils (%) (Auto) 0 0-10 % Neutrophils # (Auto) 6.5 1.8-7.8 10^3/uL Lymphocytes # (Auto) 1.0 1.0-4.0 10^3/uL Monocytes # (Auto) 0.5 0.0-1.0 10^3/uL Eosinophils # (Auto) 0.0 0.0-0.3 10^3/uL Basophils # (Auto) 0.0 0.0-0.1 10^3/uL Immature Granulocyte # (Auto) 0.0 0.0-0.1 10^3/uL Sodium Level 142 135-145 MMOL/L Potassium Level 3.6 3.6-5.0 MMOL/L Chloride Level 104 98-107 MMOL/L Carbon Dioxide Level 23 21-32 MMOL/L Anion Gap 15 H 5-14 MMOL/L Blood Urea Nitrogen 6 L 7-18 MG/DL Creatinine 0.95 0.60-1.30 MG/DL Estimat Glomerular Filtration Rate 64 BUN/Creatinine Ratio 6 Glucose Level 110 H 70-105 MG/DL Calcium Level 9.9 8.5-10.1 MG/DL Corrected Calcium 9.8 8.5-10.1 MG/DL Total Bilirubin 0.4 0.1-1.0 MG/DL Aspartate Amino Transf (AST/SGOT) 35 H 5-34 U/L Alanine Aminotransferase (ALT/SGPT) 25 0-55 U/L Alkaline Phosphatase 72 40-136 U/L Total Protein 7.5 6.4-8.2 GM/DL Albumin 4.1 3.2-4.5 GM/DL Urine Color YELLOW Urine Clarity CLEAR Urine pH 8.0 5-9 Urine Specific [place] 1.020 1.016-1.022 Urine Protein NEGATIVE NEGATIVE Urine Glucose (UA) NEGATIVE NEGATIVE Urine Ketones NEGATIVE NEGATIVE Urine Nitrite NEGATIVE NEGATIVE Urine Bilirubin NEGATIVE NEGATIVE Urine Urobilinogen 0.2 < = 1.0 MG/DL Urine Leukocyte Esterase NEGATIVE NEGATIVE Urine RBC (Auto) NEGATIVE NEGATIVE Urine RBC NONE /HPF Urine WBC NONE /HPF Urine Squamous Epithelial Cells RARE /HPF Urine Crystals NONE /LPF Urine Bacteria NEGATIVE /HPF Urine Casts NONE /LPF Urine Mucus NEGATIVE /LPF Urine Culture Indicated NO Urine Opiates Screen NEGATIVE NEGATIVE Urine Oxycodone Screen NEGATIVE NEGATIVE Urine Methadone Screen NEGATIVE NEGATIVE Urine Propoxyphene Screen NEGATIVE NEGATIVE Urine Barbiturates Screen NEGATIVE NEGATIVE Ur Tricyclic Antidepressants Screen NEGATIVE NEGATIVE Urine Phencyclidine Screen NEGATIVE NEGATIVE Urine Amphetamines Screen NEGATIVE NEGATIVE Urine Methamphetamines Screen NEGATIVE NEGATIVE Urine Benzodiazepines Screen POSITIVE H NEGATIVE Urine Cocaine Screen NEGATIVE NEGATIVE Urine Cannabinoids Screen NEGATIVE NEGATIVE (ARIELLA WARNER MD) My Orders Orders - ARIELLA WARNER MD Ed Iv/Invasive Line Start (05/13/21 08:59) Comprehensive Metabolic Panel (05/13/21 08:59) Cbc With Automated Diff (05/13/21 08:59) Ua Culture If Indicated (05/13/21 08:59) Drug Screen Stat (Urine) (05/13/21 08:59) Ns Iv 1000 Ml (Sodium Chloride 0.9%) (05/13/21 09:00) Lorazepam Injection (Ativan Injection) (05/13/21 09:45) Pantoprazole Injection (Protonix Injecti (05/13/21 09:45) Promethazine Injection (Phenergan Injec (05/13/21 09:45) Ekg Tracing (05/13/21 11:10) Ns Iv 1000 Ml (Sodium Chloride 0.9%) (05/13/21 11:30) Droperidol Inj (Ed Only) (Inapsine Inj ( (05/13/21 11:30) (ARIELLA WARNER MD) Medications Given in ED (ARIELLA WARNER MD) Vital Signs/I&O 05/13/21 05/13/21 05/13/21 09:26 11:50 13:13 Temp 37.0 Pulse 112 90 Resp 18 16 16 B/P (MAP) 180/100 (126) 180/100 170/90 Pulse Ox 99 96 (ARIELLA WARNER MD) Progress Progress Note #1: Time: 11:23 Progress Note 45-year-old female presents to the emergency room with a chief complaint of diffuse abdominal discomfort, nausea and vomiting onset at 1 AM. Patient is we ll-known to this ER with multiple visits for "cyclic vomiting syndrome". Presumptively caused by excessive THC use/abuse. Patient states that she has not used THC in any form since the beginning of April. She was most recently admitted to the hospital approximately 1 week ago with severe hypokalemia as a result of her nausea and vomiting. She does not have a firer boiler as she does not have insurance. Her surgeon here at [facility] is Dr. Gramajo. Patient states that she takes Zofran as needed at home and is on an acid dry mop maker at home. No fevers or chills. No blood in her vomit. No blood in her stools. No burning with urination. No abnormal vaginal discharge. She is status post hysterectomy. Patient states her symptoms today started at about 1 AM this morning. She vomited twice at home and 4 times this morning while she was at work. Home Zofran dosing has not worked. Abdominal examination reveals hypoactive bowel sounds, soft nondistended abdomen with no point tenderness, rebound or involuntary guarding. She is not tachycardic. Labs have been reviewed, potassium is within normal range at this time. Patient has been given a liter of fluids here in the department along with 1 mg of Ativan and 25 mg of Phenergan and her fluids. She is requesting pain medication for her abdominal discomfort and residual nausea. EKG is obtained and evaluated for prolonged QT, QTC is 487. Patient will be given 2.5 mg of Inapsine as she has been given this in the past with resolution of her pain as well as vomiting. She is also requesting something for pain for her bilateral shoulders which she states started bothering her a couple of weeks ago. She requests tramadol as she has been given that in the past. States that she has a primary care appointment on the , Saturday of this week. Patient will be given 8 tramadol tablets on discharge. Progress Note #2: Time: 13:00 Progress Note Patient reassessed, resting comfortably in the bed, she has not vomited since she has been here. She has received 25 mg of Phenergan, 1 mg of Ativan and 2.5 mg of droperidol IV. She has had 2 L of IV fluids. Her labs have been reviewed, within normal limits. She is stating to me that she is "still nauseous". Again she has not vomited the entire time she has been here. I have advised her that secondary to normal labs, adequate IV medication, adequate fluid resuscitation she is stable for discharge to home. This is a chronic condition for her. She has again asked for some tramadol for home I plan on giving her 8 tablets to get her through until Saturday. Patient is strongly encouraged to sip on clear liquids over the course of the next 12 to 24 hours. She verbalized understanding. All questions are sought and answered. Patient is stable for discharge. (ARIELLA WARNER MD) Initial ECG Impression Date: May 13, 2021 Initial ECG Impression Time: 11:20 Initial ECG Rate: 100 Initial ECG Rhythm: S.Tach Initial ECG Intervals: Normal Initial ECG Intervals IA interval 118 QRS [address] segment elevation or depression is noted, no ectopy. Initial ECG Impression: Normal (ARIELLA WARNER MD) Departure Impression Primary Impression: Cyclical vomiting syndrome Additional Impression: Chronic abdominal pain Disposition: HOME, SELF-CARE Condition: Stable Departure-Patient Inst. Decision time for Depature: 13:01 (ARIELLA WARNER MD) Referrals: [facility] (PCP) Primary Care Physician AUDREY ELIZABETH (Family) Primary Care Physician Patient Instructions: Nausea and Vomiting of Add. Discharge Instructions: Drink nothing but clear liquids over the course of the next 12 to 24 hours. Slowly sip on fluids every 30 minutes or so at home. You can advance your diet as tolerated after 24 hours. Continue Zofran at home every 8 hours. I have given you a prescription for tramadol 50 mg tablets #8 to get you through until Saturday. Please keep your appointment with your primary care provider on Saturday. Scripts Tramadol HCl (Tramadol HCl) 50 Mg Tablet 50 MG PO Q6H PRN for abdominal pain, #8 TAB Prov: ARIELLA WARNER MD 05/13/21 Verification and Attestation of Medical Student E/M Service A medical student performed and documented this service in my presence. I reviewed and verified all information documented by the medical student and made modifications to such information, when appropriate. I personally performed the physical exam and medical decision making. Ariella Warner, May 14, 2021,06:12 (ARIELLA WARNER MD) Copy Copies To 1: ANNE BYRD CHRISTINE MED STUDENT May 13, 2021 09:13 ARIELLA WARNER MD May 13, 2021 11:25
[2021-05-13 09:29] LABS: BASOPHILS % (AUTO) 0 % (0-10); EOSINOPHILS % (AUTO) 0 % (0-10); HEMATOCRIT 39 % (35-52); HEMOGLOBIN 12.2 g/dL (11.5-16.0); LYMPHOCYTES % (AUTO) 13 % (12-44); MEAN CORPUSCULAR HEMOGLOBIN 27 pg (25-34); MEAN CORPUSCULAR HGB CONC 32 g/dL (32-36); MEAN CORPUSCULAR VOLUME 85 fL (80-99); MEAN PLATELET VOLUME 9.4 fL (9.0-12.2); MONOCYTES # (AUTO) 0.5 10^3/uL (0.0-1.0); MONOCYTES % (AUTO) 6 % (0-12); NEUTROPHILS # (AUTO) 6.5 10^3/uL (1.8-7.8); NEUTROPHILS % (AUTO) 81 % (42-75); PLATELET COUNT 469 10^3/uL (130-400); WHITE BLOOD COUNT 8.1 10^3/uL (4.3-11.0)
[2021-05-13 09:32] LABS: ALBUMIN 4.1 GM/DL (3.2-4.5)
[2021-05-13 09:33] LABS: POTASSIUM 3.6 MMOL/L (3.6-5.0)
[2021-05-13 09:34] LABS: CALCIUM 9.9 MG/DL (8.5-10.1)
[2021-05-13 09:35] LABS: TOTAL PROTEIN 7.5 GM/DL (6.4-8.2)
[2021-05-13 09:37] LABS: BILIRUBIN,TOTAL 0.4 MG/DL (0.1-1.0)
[2021-05-13 09:39] LABS: CREATININE SERUM 0.95 MG/DL (0.60-1.30)
[2021-05-13] MEDS ORDERED: PANTOPRAZOLE 40 MG (PROTONIX) VIAL IV ONE (09:45)
[2021-05-13] MEDS ORDERED: LORazepam INJ 2 MG/ML (ATIVAN) VIAL IVP ONE (09:45)
[2021-05-13] MEDS ORDERED: PROMETHAZINE INJ 25 MG/ML (PHENERGAN) AMP IVP ONE (09:45)
[2021-05-13] MEDS ORDERED: DROPERIDOL 5 MG/2 ML (INAPSINE) ED ONLY! IV ONE (11:30)
[2021-05-13 12:36] LABS: BILIRUBIN,URINE NEGATIVE (NEGATIVE); CLARITY,URINE CLEAR; COLOR,URINE YELLOW; GLUCOSE, URINE (UA) NEGATIVE (NEGATIVE); KETONES,URINE NEGATIVE (NEGATIVE); LEUKOCYTE ESTERASE ,URINE NEGATIVE (NEGATIVE); NITRITE,URINE NEGATIVE (NEGATIVE); PROTEIN,URINE NEGATIVE (NEGATIVE)
[2021-05-13 12:43] LABS: BACTERIA,URINE NEGATIVE /HPF; SQUAMOUS EPITHELIAL CELL,UR RARE /HPF
[2021-05-13 12:50] LABS: AMPHETAMINE SCREEN, URINE NEGATIVE (NEGATIVE); BARBITURATE SCREEN URINE NEGATIVE (NEGATIVE); BENZODIAZEPINES SCREEN URINE POSITIVE (NEGATIVE); CANNABINOID SCREEN, URINE NEGATIVE (NEGATIVE); COCAINE SCREEN URINE NEGATIVE (NEGATIVE); METHADONE STAT NEGATIVE (NEGATIVE); METHAMPHETAMINE SCREEN URINE S NEGATIVE (NEGATIVE); OPIATE SCREEN URINE NEGATIVE (NEGATIVE); OXYCODONE STAT NEGATIVE (NEGATIVE); PROPOXYPHENE STAT NEGATIVE (NEGATIVE); TRICYCLIC ANTIDEPRESSANTS SCRE NEGATIVE (NEGATIVE)
[2021-05-13] MEDS ORDERED: TRM50T PO (13:03)
[2021-05-13 13:13] VITALS: BP 170/90
== END 2021-05-13 13:16 | disposition home or self-care (01) ==
LOC: EDUNIT# 08:37 → ER 08:39
DX: R11.2 Nausea with vomiting, unspecified (principal); G89.29 Other chronic pain; R10.84 Generalized abdominal pain; J45.909 Unspecified asthma, uncomplicated; I10 Essential (primary) hypertension; K21.9 Gastro-esophageal reflux disease without esophagitis; Z79.899 Other long term (current) drug therapy
CPT/HCPCS: 36415; 80053; 80306; 81000; 85025; 93005; 96374; 96375

== ENCOUNTER 2021-05-21 04:54 | Emergency (ER) | payer SELFPAY ==
[2021-05-21] MEDS ORDERED: DROPERIDOL 5 MG/2 ML (INAPSINE) ED ONLY! IV ONE (05:15)
[2021-05-21] MEDS ORDERED: LACTATED RINGERS 1,000 ML IV ONE (05:15)
[2021-05-21 05:19] LABS: BASOPHILS % (AUTO) 0 % (0-10); EOSINOPHILS % (AUTO) 0 % (0-10); HEMATOCRIT 39 % (35-52); HEMOGLOBIN 12.4 g/dL (11.5-16.0); LYMPHOCYTES % (AUTO) 7 % (12-44); MEAN CORPUSCULAR HEMOGLOBIN 27 pg (25-34); MEAN CORPUSCULAR HGB CONC 32 g/dL (32-36); MEAN CORPUSCULAR VOLUME 84 fL (80-99); MEAN PLATELET VOLUME 9.6 fL (9.0-12.2); MONOCYTES # (AUTO) 0.7 10^3/uL (0.0-1.0); MONOCYTES % (AUTO) 6 % (0-12); NEUTROPHILS # (AUTO) 11.5 10^3/uL (1.8-7.8); NEUTROPHILS % (AUTO) 86 % (42-75); PLATELET COUNT 491 10^3/uL (130-400); WHITE BLOOD COUNT 13.3 10^3/uL (4.3-11.0)
[2021-05-21 05:27] LABS: ALBUMIN 4.1 GM/DL (3.2-4.5)
[2021-05-21 05:28] LABS: CHLORIDE 101 MMOL/L (98-107); POTASSIUM 3.2 MMOL/L (3.6-5.0); SODIUM 143 MMOL/L (135-145)
[2021-05-21 05:29] LABS: AMYLASE 15 U/L (25-125); CALCIUM 10.3 MG/DL (8.5-10.1)
[2021-05-21 05:30] LABS: GLUCOSE 191 MG/DL (70-105); TOTAL PROTEIN 7.9 GM/DL (6.4-8.2)
[2021-05-21 05:31] LABS: CARBON DIOXIDE 18 MMOL/L (21-32)
[2021-05-21 05:32] LABS: BILIRUBIN,TOTAL 0.4 MG/DL (0.1-1.0)
[2021-05-21 05:34] LABS: ALKALINE PHOSPHATASE 93 U/L (40-136); CREATININE SERUM 1.11 MG/DL (0.60-1.30); GFR ESTIMATED 54
[2021-05-21 05:35] LABS: BUN/CREATININE RATIO 6
[2021-05-21 05:36] LABS: MAGNESIUM 1.7 MG/DL (1.6-2.4)
[2021-05-21 05:37] LABS: ALANINE AMINOTRANSFERASE 16 U/L (0-55)
[2021-05-21 05:38] LABS: LIPASE 21 U/L (8-78)
[2021-05-21 06:29] LABS: LYMPHOCYTES % (MANUAL) 8 %; MICROCYTOSIS SLIGHT; MONOCYTES % (MANUAL) 4 %; NEUTROPHILS % (MANUAL) 88 %
--- NOTE | 2021-05-21 06:36 | ED GI ---
General Chief Complaint: Abdominal/GI Problems Stated Complaint: VOMITING Source of Information: Patient, Old Records (CHANTEL MAYORGA ) History of Present Illness Date Seen by Provider: May 21, 2021 Time Seen by Provider: 05:05 Initial Comments PT ARRIVES VIA POV FROM HOME C/O NAUSEA AND VOMITING SINCE NOON YESTERDAY THIS IS A CHRONIC PROBLEM FOR PATIENT FOR YEARS--DUE TO CANNIBUS HYPEREMESIS SYNDROME. EXTENSIVE WORK UP'S HAVE ALL BEEN ESSENTIALLY NEGATIVE. PT HAS BEEN HERE 32 TIMES SINCE 08/26/20--ALL FOR THIS EXACT COMPLAINT, AND HER 4TH VISIT IN MAY FOR THIS PROBLEM HAD EGD 01/2021--SHOWED ESOPHAGITIS AND SMALL HIATAL HERNIA. NO FEVER HAD NORMAL BM YESTERDAY VOIDING NORMALLY, WITHOUT URINARY SYMPTOMS PT STATES SHE HAS BEEN DRINKING WATER--LAST HAD WATER AN HOUR AGO--"CAN'T KEEP ANYTHING DOWN" HAS NOT TAKEN ANYTHING FOR NAUSEA TODAY, HAS ZOFRAN AT HOME, BUT "DOESN'T HELP" PT CLAIMS SHE HAS NOT HAD ANY MARIJUANA FOR OVER 2 MONTHS PCP: [facility] (CHANTEL MAYORGA DO) Allergies and Home Medications Allergies Coded Allergies: morphine (Verified Allergy, Unknown, CAUSES "REBOUND HEADACHES", 12/13/20) PT HAS RECEIVED LORTAB & OXYCODONE IN THE PAST baclofen (Verified Adverse Reaction, Severe, 12/13/20) PATIENT UNAWARE OF REACTION BUT WAS HOSPITALIZED AFTER TAKING MEDICATION AND WAS TOLD IT WAS A REACTION DUE TO THE MEDICATION SHE TOOK. meloxicam (Verified Adverse Reaction, Severe, 12/13/20) PATIENT UNAWARE OF REACTION BUT WAS HOSPITALIZED AFTER TAKING MEDICATION AND WAS TOLD IT WAS A REACTION DUE TO THE MEDICATION SHE TOOK. NSAIDS (Non-Steroidal Anti-Inflamma (Verified Adverse Reaction, Mild, have IBS and avoid NSAIDS, 12/13/20) Patient Home Medication List Home Medication List Reviewed: Yes (MUKESHCHANTEL Lange ) Famotidine (Famotidine) 20 Mg Tablet, 20 MG PO BID, (Reported) Entered as Reported by: ZAIRA ARCHER on 05/05/21 1450 Potassium Chloride (Klor-Con M20) 20 Meq Tab.er.prt, 20 MEQ PO DAILY Prescribed by: KRYSTIN RAMOS on 05/08/21 1113 Spironolactone (Spironolactone) 25 Mg Tablet, 50 MG PO BID Prescribed by: KRYSTIN RAMOS on 05/08/21 1113 Tramadol HCl (Tramadol HCl) 50 Mg Tablet, 50 MG PO Q6H PRN for abdominal pain Prescribed by: ARIELLA WARNER on 05/13/21 1304 Review of Systems Review of Systems Constitutional: no symptoms reported Respiratory: No Symptoms Reported Cardiovascular: No Symptoms Reported Gastrointestinal: See HPI, Abdominal Pain; Denies Constipated, Denies Diarrhea; Nausea, Vomiting Genitourinary: No Symptoms Reported Musculoskeletal: no symptoms reported Skin: no symptoms reported Psychiatric/Neurological: Anxiety Endocrine: No Symptoms Reported Hematologic/Lymphatic: No Symptoms Reported (CHANTEL MAYORGA DO) Past Ppnyqmv-Kugnhi-Vdyhil Hx Immunizations Up To Date Tetanus Booster (TDap): Unknown PED Vaccines UTD: No First/Initial COVID19 Vaccinat: n/a Second COVID19 Vaccination Marv: n/a Third COVID19 Vaccination Date: n/a (CHANTEL MAYORGA DO) Seasonal Allergies Seasonal Allergies: No (CHANTEL MAYORGA DO) Past Medical History Surgery/Hospitalization HX: TONSILLECTOMY HYSTERECTOMY BILATERAL TUBAL LIGATION CHOLECYSTECTOMY LAPAROSCOPY 09/19/[address] BHATTI FOR INTUSSUCEPTION EGD'S--LAST ONE 01/16/[address] BHATTI--SHOWED GASTRITIS, SMALL HIATAL. 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 [employer] History: 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 Sexually Transmitted Disease: Yes (HPV) HIV/AIDS: No Genitourinary: Yes Bladder Infection Gastrointestinal: Yes (History of cyclic vomiting and cannabis hyperemesis;CHRONIC N/V/ABD PAIN ) Gastroesophageal Reflux, Diverticulosis, Esophagitis, Hiatal Hernia, Gall Bladder Disease Musculoskeletal: Yes Chronic Back Pain Endocrine: No HEENT: Yes (POOR DENTITION) Loss of Vision: Denies Hearing Impairment: Denies Cancer: Yes Uterine Psychosocial: Yes (THC USE) Anxiety, Depression Integumentary: No Blood Disorders: No Adverse Reaction/Blood Tranf: No (MUKESH,CHANTEL K DO) Family Medical History Diabetes mellitus 19 FATHER FHx: brain tumor 19 MOTHER HPV infection G8 SISTER No Family History of: AIDS Abdominal aortic aneurysm [place]'s disease Alcoholism Alzheimer's disease Aphasia Arthritis Asthma Cancer of mouth Cardiovascular disease Cataracts Colon cancer Completed stroke Congenital disease Congenital heart disease Coronary thrombosis Cystic fibrosis Deafness or hearing loss Dementia Drug abuse Dysphasia Fibrocystic disease of breast Gastroenteritis Glaucoma Headache disorder Hypercholesterolemia Hypertension Infertility Kidney disease Myocardial infarction Neoplasm Not obtainable due to adoption Osteoporosis Parkinson's disease Prostate cancer Psychosocial problem Respiratory disorder Seizure disorder Severe allergy Thyroid disease Tuberculosis Visual disorder Heart Disease, Hypertension SOCIAL HISTORY: -SMOKING -ETOH- -DRUGS--CHRONIC MARIJUANA USE PAST SURGICAL HISTORY: -09/20/20--LAPAROSCOPY FOR INTUSSCEPTION BY DR. BHATTI -08/24/20 --EGD/COLONOSCOPY--DX GASTRITIS/ESOPHAGITIS -01/16/21--EGD BY DR. BHATTI--DX GASTRITIS/ESOPHAGITIS/SMALL HIATAL HERNIA -CHOLECYSTECTOMY -BILATERAL TUBAL LIGATION -HYSTERECTOMY/BILATERAL SALPINGO-OOPHORECTOMY 2005 -BLADDER SLING/LATER REMOVED -CARDIAC CATH 2012--NORMAL (MUKESH,CHANTEL K DO) Physical Exam Vital Signs Capillary Refill : (MUKESH,CHANTEL K DO) Height/Weight/BMI Height: 5'6.00" Weight: 203lbs. 6.4oz. [id number]; 26.00 BMI Method:Stated General Appearance: other (VERY DRAMATIC, CONSTANT HARSH FORCED RETCHING/DRY HEAVES--NO ACTUAL EMESIS) HEENT: other (NO UPPER TEETH. LOWER TEETH WITH EXTENSIVE DECAY) Respiratory: normal breath sounds Cardiovascular: regular rate, rhythm Gastrointestinal: soft, tenderness (DIFFUSE TENDERNESS) Extremities: normal inspection, normal capillary refill Neurologic/Psychiatric: no motor/sensory deficits, alert, oriented x 3 Skin: normal color, warm/dry (MUKESH,CHANTEL K DO) Progress/Results/Core Measures Results/Orders Lab Results Laboratory Tests Test 05/21/21 05:10 Range/Units White Blood Count 13.3 H 4.3-11.0 10^3/uL Red Blood Count 4.59 3.80-5.11 10^6/uL Hemoglobin 12.4 11.5-16.0 g/dL Hematocrit 39 35-52 % Mean Corpuscular Volume 84 80-99 fL Mean Corpuscular Hemoglobin 27 25-34 pg Mean Corpuscular Hemoglobin Concent 32 32-36 g/dL Red Cell Distribution Width 16.6 H 10.0-14.5 % Platelet Count 491 H 130-400 10^3/uL Mean Platelet Volume 9.6 9.0-12.2 fL Immature Granulocyte % (Auto) 1 % Neutrophils (%) (Auto) 86 H 42-75 % Lymphocytes (%) (Auto) 7 L 12-44 % Monocytes (%) (Auto) 6 0-12 % Eosinophils (%) (Auto) 0 0-10 % Basophils (%) (Auto) 0 0-10 % Neutrophils # (Auto) 11.5 H 1.8-7.8 10^3/uL Lymphocytes # (Auto) 1.0 1.0-4.0 10^3/uL Monocytes # (Auto) 0.7 0.0-1.0 10^3/uL Eosinophils # (Auto) 0.0 0.0-0.3 10^3/uL Basophils # (Auto) 0.0 0.0-0.1 10^3/uL Immature Granulocyte # (Auto) 0.1 0.0-0.1 10^3/uL Neutrophils % (Manual) 88 % Lymphocytes % (Manual) 8 % Monocytes % (Manual) 4 % Microcytosis SLIGHT Sodium Level 143 135-145 MMOL/L Potassium Level 3.2 L 3.6-5.0 MMOL/L Chloride Level 101 98-107 MMOL/L Carbon Dioxide Level 18 L 21-32 MMOL/L Anion Gap 24 H 5-14 MMOL/L Blood Urea Nitrogen 7 7-18 MG/DL Creatinine 1.11 0.60-1.30 MG/DL Estimat Glomerular Filtration Rate 54 BUN/Creatinine Ratio 6 Glucose Level 191 H 70-105 MG/DL Calcium Level 10.3 H 8.5-10.1 MG/DL Corrected Calcium 10.2 H 8.5-10.1 MG/DL Magnesium Level 1.7 1.6-2.4 MG/DL Total Bilirubin 0.4 0.1-1.0 MG/DL Aspartate Amino Transf (AST/SGOT) 14 5-34 U/L Alanine Aminotransferase (ALT/SGPT) 16 0-55 U/L Alkaline Phosphatase 93 40-136 U/L Total Protein 7.9 6.4-8.2 GM/DL Albumin 4.1 3.2-4.5 GM/DL Amylase Level 15 L 25-125 U/L Lipase 21 8-78 U/L Serum Test, Qualitative NEGATIVE NEGATIVE Serum Alcohol < 10 <10 MG/DL (ARIELLA WARNER MD) My Orders Orders - ARIELLA WARNER MD Lactated Ringers (Lr 1000 Ml Iv Solution (05/21/21 07:30) Promethazine Injection (Phenergan Injec (05/21/21 08:00) Diphenhydramine Injection (Benadryl Inje (05/21/21 08:00) (ARIELLA WARNER MD) Medications Given in ED Current Medications Medications Dose Ordered Sig/Judi Route Start Time Stop Time Status Last Admin Dose Admin Droperidol 2.5 mg ONCE ONCE IV 05/21/21 05:15 05/21/21 05:16 DC 05/21/21 05:24 2.5 MG Lactated Ringer's 1,000 ml @ 0 mls/hr Q0M ONCE IV 05/21/21 05:15 05/21/21 05:16 DC 05/21/21 05:24 1,000 MLS/HR (ARIELLA WARNER MD) Progress Progress Note : Time: 07:47 Progress Note Patient reevaluated claims that she is still nauseous. Labs have been reviewed, her potassium is in the low end of normal. She has quite the anion gap so we will add a second liter of LR. We will give her some Phenergan and Benadryl on top of her Inapsine. Anticipate discharge to home. She denies any urinary complaints. I am not interested in any urinalysis or urine drug screen today. Will advise patient to continue her home nausea medications her routine precautions, clear liquid diet to advance as tolerated at home. (ARIELLA WARNER MD) Departure Communication (Admissions) 0600--CARE TURNED OVER TO DR. WARNER, ALL STUDIES PENDING (CHANTEL MAYORGA DO) Impression Primary Impression: Cannabis hyperemesis syndrome concurrent with and due to cannabis dependence Additional Impression: Nausea and vomiting Qualified Codes: R11.2 - Nausea with vomiting, unspecified Disposition: 01 HOME, SELF-CARE Condition: Stable Departure-Patient Inst. Decision time for Depature: 07:49 (ARIELLA WARNER MD) Referrals: [facility] (PCP) Primary Care Physician AUDREY ELIZABETH (Family) Primary Care Physician Patient Instructions: Nausea and Vomiting, Adult Add. Discharge Instructions: Clear liquid diet today. Slowly advance as tolerated in the evening. Continue your Zofran at home as needed for nausea. Return to the emergency room for fever, worsening pain or any other emergent concerning symptoms. Copy Copies To 1: ANNE BYRD LISA K DO May 21, 2021 06:36 ARIELLA WARNER MD May 21, 2021 07:49
[2021-05-21] MEDS ORDERED: LACTATED RINGERS 1,000 ML IV SCH (07:30)
[2021-05-21] MEDS ORDERED: PROMETHAZINE INJ 25 MG/ML (PHENERGAN) AMP IVP ONE (08:00)
[2021-05-21] MEDS ORDERED: diphenhydrAMINE 50 MG/ML INJ (BENADRYL) IVP ONE (08:00)
[2021-05-21 09:14] VITALS: BP 190/100
== END 2021-05-21 09:14 | disposition home or self-care (01) ==
LOC: EDUNIT# 04:54 → ER 04:57
DX: R11.2 Nausea with vomiting, unspecified (principal); F12.20 Cannabis dependence, uncomplicated; I10 Essential (primary) hypertension; J45.909 Unspecified asthma, uncomplicated; K21.9 Gastro-esophageal reflux disease without esophagitis; G89.29 Other chronic pain; M54.9 Dorsalgia, unspecified; Z79.891 Long term (current) use of opiate analgesic
CPT/HCPCS: 80053; 82150; 83690; 83735; 84703; 85007; 85027; 99284; G0480; 36415; 80320

== ENCOUNTER 2021-05-26 09:39 | Emergency (ER) | payer SELFPAY ==
[~2021-05-26] VITALS: Ht 167.7 cm; Wt 81.6 kg
[2021-05-26] MEDS ORDERED: diphenhydrAMINE 50 MG/ML INJ (BENADRYL) IVP ONE (10:30)
[2021-05-26] MEDS ORDERED: NS IV 1000 ML 1,000 ML IV SCH (10:30)
[2021-05-26] MEDS ORDERED: HALOPERIDOL 5 MG/ML (HALDOL) VIAL IV ONE (10:30)
--- NOTE | 2021-05-26 10:33 | ED General ---
General Stated Complaint: VOMITING/ABD PAIN Source of Information: Patient Exam Limitations: No Limitations History of Present Illness Date Seen by Provider: May 26, 2021 Time Seen by Provider: 10:31 Initial Comments To ER with recurrent diffuse abdominal pain nausea vomiting. Timing/Duration: 1-2 Days Severity: Moderate Associated Systoms: Nausea/Vomiting Allergies and Home Medications Allergies Coded Allergies: morphine (Verified Allergy, Unknown, CAUSES "REBOUND HEADACHES", 12/13/20) PT HAS RECEIVED LORTAB & OXYCODONE IN THE PAST baclofen (Verified Adverse Reaction, Severe, 12/13/20) PATIENT UNAWARE OF REACTION BUT WAS HOSPITALIZED AFTER TAKING MEDICATION AND WAS TOLD IT WAS A REACTION DUE TO THE MEDICATION SHE TOOK. meloxicam (Verified Adverse Reaction, Severe, 12/13/20) PATIENT UNAWARE OF REACTION BUT WAS HOSPITALIZED AFTER TAKING MEDICATION AND WAS TOLD IT WAS A REACTION DUE TO THE MEDICATION SHE TOOK. NSAIDS (Non-Steroidal Anti-Inflamma (Verified Adverse Reaction, Mild, have IBS and avoid NSAIDS, 12/13/20) Patient Home Medication List Home Medication List Reviewed: Yes Famotidine (Famotidine) 20 Mg Tablet, 20 MG PO BID, (Reported) Entered as Reported by: ZAIRA ARCHER on 05/05/21 1450 Potassium Chloride (Klor-Con M20) 20 Meq Tab.er.prt, 20 MEQ PO DAILY Prescribed by: KRYSTIN RAMOS on 05/08/21 1113 Spironolactone (Spironolactone) 25 Mg Tablet, 50 MG PO BID Prescribed by: KRYSTIN RAMOS on 05/08/21 1113 Tramadol HCl (Tramadol HCl) 50 Mg Tablet, 50 MG PO Q6H PRN for abdominal pain Prescribed by: ARIELLA WARNER on 05/13/21 1304 Review of Systems Review of Systems Constitutional: see HPI EENTM: see HPI Respiratory: no symptoms reported Cardiovascular: no symptoms reported Genitourinary: no symptoms reported Musculoskeletal: no symptoms reported Skin: no symptoms reported Psychiatric/Neurological: No Symptoms Reported Hematologic/Lymphatic: No Symptoms Reported Immunological/Allergic: no symptoms reported Past Croeuhm-Bhwcxk-Xdtktl Hx Immunizations Up To Date Tetanus Booster (TDap): Unknown PED Vaccines UTD: No First/Initial COVID19 Vaccinat: n/a Second COVID19 Vaccination Marv: n/a Third COVID19 Vaccination Date: n/a Seasonal Allergies Seasonal Allergies: No Past Medical History Surgery/Hospitalization HX: TONSILLECTOMY HYSTERECTOMY BILATERAL TUBAL LIGATION CHOLECYSTECTOMY LAPAROSCOPY 09/19/[address] BHATTI FOR INTUSSUCEPTION EGD'S--LAST ONE 01/16/[address] BHATTI--SHOWED GASTRITIS, SMALL HIATAL. 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 ATTACHE History: 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 Sexually Transmitted Disease: Yes (HPV) HIV/AIDS: No Genitourinary: Yes Bladder Infection Gastrointestinal: Yes (History of cyclic vomiting and cannabis hyperemesis;CHRONIC N/V/ABD PAIN ) Gastroesophageal Reflux, Diverticulosis, Esophagitis, Hiatal Hernia, Gall Bladder Disease Musculoskeletal: Yes Chronic Back Pain Endocrine: No HEENT: Yes (POOR DENTITION) Loss of Vision: Denies Hearing Impairment: Denies Cancer: Yes Uterine Psychosocial: Yes (THC USE) Anxiety, Depression Integumentary: No Blood Disorders: No Adverse Reaction/Blood Tranf: No Family Medical History Diabetes mellitus 19 FATHER FHx: brain tumor 19 MOTHER HPV infection G8 SISTER No Family History of: AIDS Abdominal aortic aneurysm [place]'s disease Alcoholism Alzheimer's disease Aphasia Arthritis Asthma Cancer of mouth Cardiovascular disease Cataracts Colon cancer Completed stroke Congenital disease Congenital heart disease Coronary thrombosis Cystic fibrosis Deafness or hearing loss Dementia Drug abuse Dysphasia Fibrocystic disease of breast Gastroenteritis Glaucoma Headache disorder Hypercholesterolemia Hypertension Infertility Kidney disease Myocardial infarction Neoplasm Not obtainable due to adoption Osteoporosis Parkinson's disease Prostate cancer Psychosocial problem Respiratory disorder Seizure disorder Severe allergy Thyroid disease Tuberculosis Visual disorder Heart Disease, Hypertension SOCIAL HISTORY: -SMOKING -ETOH- -DRUGS--CHRONIC MARIJUANA USE PAST SURGICAL HISTORY: -09/20/20--LAPAROSCOPY FOR INTUSSCEPTION BY DR. BHATTI -08/24/20 --EGD/COLONOSCOPY--DX GASTRITIS/ESOPHAGITIS -01/16/21--EGD BY DR. BHATTI--DX GASTRITIS/ESOPHAGITIS/SMALL HIATAL HERNIA -CHOLECYSTECTOMY -BILATERAL TUBAL LIGATION -HYSTERECTOMY/BILATERAL SALPINGO-OOPHORECTOMY 2005 -BLADDER SLING/LATER REMOVED -CARDIAC CATH 2012--NORMAL Physical Exam Vital Signs Capillary Refill : Height, Weight, BMI Height: 5'6.00" Weight: 203lbs. 6.4oz. 92.093496rw; 29.00 BMI Method:Stated General Appearance: No Apparent Distress, WD/WN, Other (Adamantly denies that she is clean and has not been smoking marijuana) Eyes: Bilateral Eye Normal Inspection, Bilateral Eye PERRL, Bilateral Eye EOMI Neck: Full Range of Motion, Normal Inspection Respiratory: No Accessory Muscle Use, No Respiratory Distress Cardiovascular: Normal Peripheral Pulses, Tachycardia Gastrointestinal: Normal Bowel Sounds, Non Tender, Soft Extremity: Normal Capillary Refill, Normal Inspection Neurologic/Psychiatric: Alert, Oriented x3 Skin: Normal Color, Warm/Dry Progress/Results/Core Measures Suspected Sepsis SIRS Temperature: Pulse: Respiratory Rate: Laboratory Tests 05/26/21 10:49: Blood Pressure / Mean: Laboratory Tests 05/26/21 10:49: Results/Orders Lab Results Laboratory Tests Test 05/26/21 10:49 Range/Units My Orders Orders - FAMILIA ELISE APRN Cbc With Automated Diff (05/26/21 10:28) Basic Metabolic Panel (05/26/21 10:28) Ed Iv/Invasive Line Start (05/26/21 10:28) Ns Iv 1000 Ml (Sodium Chloride 0.9%) (05/26/21 10:30) Haloperidol Injection (Haldol Injectio (05/26/21 10:30) Diphenhydramine Injection (Benadryl Inje (05/26/21 10:30) Lipase (05/26/21 10:33) Vital Signs/I&O Capillary Refill : Departure Impression Primary Impression: Chronic abdominal pain Disposition: HOME, SELF-CARE Condition: Stable Departure-Patient Inst. Referrals: [facility] (PCP) Primary Care Physician AUDREY ELIZABETH (Family) Primary Care Physician Patient Instructions: Nausea and Vomiting, Adult ED Add. Discharge Instructions: 1. Take the nausea medicine every day with you are nauseated or not. Scripts Metoclopramide HCl (Reglan) 10 Mg Tablet 10 MG PO BID, #30 TAB Prov: FAMILIA ELISE APRN 05/26/21 FAMILIA ELISE APRN May 26, 2021 10:32
[2021-05-26] MEDS ORDERED: METO-310 PO (10:54)
[2021-05-26 10:55] LABS: BASOPHILS % (AUTO) 0 % (0-10); EOSINOPHILS % (AUTO) 0 % (0-10); HEMATOCRIT 41 % (35-52); HEMOGLOBIN 13.4 g/dL (11.5-16.0); LYMPHOCYTES # (AUTO) 0.4 10^3/uL (1.0-4.0); LYMPHOCYTES % (AUTO) 3 % (12-44); MEAN CORPUSCULAR HEMOGLOBIN 27 pg (25-34); MEAN CORPUSCULAR HGB CONC 33 g/dL (32-36); MEAN CORPUSCULAR VOLUME 83 fL (80-99); MEAN PLATELET VOLUME 9.2 fL (9.0-12.2); MONOCYTES # (AUTO) 0.8 10^3/uL (0.0-1.0); MONOCYTES % (AUTO) 6 % (0-12); NEUTROPHILS # (AUTO) 12.2 10^3/uL (1.8-7.8); NEUTROPHILS % (AUTO) 90 % (42-75); PLATELET COUNT 433 10^3/uL (130-400); WHITE BLOOD COUNT 13.5 10^3/uL (4.3-11.0)
[2021-05-26 11:02] LABS: POTASSIUM 2.7 MMOL/L (3.6-5.0)
[2021-05-26 11:03] LABS: CALCIUM 9.9 MG/DL (8.5-10.1)
[2021-05-26 11:07] LABS: LYMPHOCYTES % (MANUAL) 2 %; MONOCYTES % (MANUAL) 8 %; NEUTROPHILS % (MANUAL) 90 %; RBC MORPH NORMAL
[2021-05-26 11:08] LABS: CREATININE SERUM 0.97 MG/DL (0.60-1.30)
[2021-05-26] MEDS ORDERED: KCL 20 MEQ TAB (K-DUR) PO ONE (11:15)
[2021-05-26] MEDS ORDERED: ONDANSETRON 4 MG/2 ML (SDV) Z0FRAN IVP ONE (12:00)
[2021-05-26 12:27] VITALS: BP 134/88
== END 2021-05-26 12:27 | disposition home or self-care (01) ==
LOC: EDUNIT# 09:39 → ER 09:41
DX: G89.29 Other chronic pain (principal); R10.84 Generalized abdominal pain; J45.909 Unspecified asthma, uncomplicated; I10 Essential (primary) hypertension; K21.9 Gastro-esophageal reflux disease without esophagitis; Z79.899 Other long term (current) drug therapy
CPT/HCPCS: 80048; 83690; 85007; 85027; 99284; G0480; 36415; 80320

== ENCOUNTER 2021-06-19 17:45 | Emergency (ER) | payer SELFPAY ==
[~2021-06-19] VITALS: Ht 167.7 cm; Wt 81.6 kg
[~2021-06-19 17:45] MED LIST changes: +METO-310 PO
--- NOTE | 2021-06-19 19:14 | ED GI ---
General Chief Complaint: Abdominal/GI Problems Stated Complaint: N/V History of Present Illness Date Seen by Provider: Jun 19, 2021 Time Seen by Provider: 18:45 Initial Comments 45 year old female, well known to the ED for cyclical vomiting, usually related to marijuana usage. Patient insists that she hasn't used marijuana in at least 4 months. However she has had positive urine drug screens in April,. She reports vomiting for the last 48 hours. She has not taken any medication for the nausea or vomiting in the last 6 hours. Her last p.o. intake was water just prior to arrival. She denies any abdominal pain. Timing/Duration: 1-2 Days Severity/Quality: Moderate Associated Symptoms: No Heartburn; Nausea/Vomiting Allergies and Home Medications Allergies Coded Allergies: morphine (Verified Allergy, Unknown, CAUSES "REBOUND HEADACHES", 12/13/20) PT HAS RECEIVED LORTAB & OXYCODONE IN THE PAST baclofen (Verified Adverse Reaction, Severe, 12/13/20) PATIENT UNAWARE OF REACTION BUT WAS HOSPITALIZED AFTER TAKING MEDICATION AND WAS TOLD IT WAS A REACTION DUE TO THE MEDICATION SHE TOOK. meloxicam (Verified Adverse Reaction, Severe, 12/13/20) PATIENT UNAWARE OF REACTION BUT WAS HOSPITALIZED AFTER TAKING MEDICATION AND WAS TOLD IT WAS A REACTION DUE TO THE MEDICATION SHE TOOK. NSAIDS (Non-Steroidal Anti-Inflamma (Verified Adverse Reaction, Mild, have IBS and avoid NSAIDS, 12/13/20) Patient Home Medication List Home Medication List Reviewed: Yes Famotidine (Famotidine) 20 Mg Tablet, 20 MG PO BID, (Reported) Entered as Reported by: ZAIRA ARCHER on 05/05/21 1450 Metoclopramide HCl (Reglan) 10 Mg Tablet, 10 MG PO BID Prescribed by: FAMILIA ELISE on 05/26/21 1054 Potassium Chloride (Klor-Con M20) 20 Meq Tab.er.prt, 20 MEQ PO DAILY Prescribed by: KRYSTIN RAMOS on 05/08/21 1113 Spironolactone (Spironolactone) 25 Mg Tablet, 50 MG PO BID Prescribed by: KRYSTIN RAMOS on 05/08/21 1113 Tramadol HCl (Tramadol HCl) 50 Mg Tablet, 50 MG PO Q6H PRN for abdominal pain Prescribed by: ARIELLA WARNER on 05/13/21 1304 Review of Systems Review of Systems Constitutional: no symptoms reported, see HPI Gastrointestinal: See HPI; Denies Abdominal Pain, Denies Diarrhea; Nausea, Poor Fluid Intake, Vomiting All Other Systems Reviewed Negative Unless Noted: Yes Past Gcgcgne-Vpheop-Hsnoon Hx Immunizations Up To Date Tetanus Booster (TDap): Unknown PED Vaccines UTD: No First/Initial COVID19 Vaccinat: May Second COVID19 Vaccination Marv: NOT YET Third COVID19 Vaccination Date: n/a Seasonal Allergies Seasonal Allergies: No Past Medical History Surgery/Hospitalization HX: TONSILLECTOMY HYSTERECTOMY BILATERAL TUBAL LIGATION CHOLECYSTECTOMY LAPAROSCOPY 09/19/[address] BHATTI FOR INTUSSUCEPTION EGD'S--LAST ONE 01/16/[address] BHATTI--SHOWED GASTRITIS, SMALL HIATAL. 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 History: 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 Sexually Transmitted Disease: Yes (HPV) HIV/AIDS: No Genitourinary: Yes Bladder Infection Gastrointestinal: Yes (History of cyclic vomiting and cannabis hyperemesis;CHRONIC N/V/ABD PAIN ) Gastroesophageal Reflux, Diverticulosis, Esophagitis, Hiatal Hernia, Gall Bladder Disease Musculoskeletal: Yes Chronic Back Pain Endocrine: No HEENT: Yes (POOR DENTITION) Loss of Vision: Denies Hearing Impairment: Denies Cancer: Yes Uterine Psychosocial: Yes (THC USE) Anxiety, Depression Integumentary: No Blood Disorders: No Adverse Reaction/Blood Tranf: No Family Medical History Reviewed Nursing Family Hx Diabetes mellitus 19 FATHER FHx: brain tumor 19 MOTHER HPV infection G8 SISTER No Family History of: AIDS Abdominal aortic aneurysm Madi's disease Alcoholism Alzheimer's disease Aphasia Arthritis Asthma Cancer of mouth Cardiovascular disease Cataracts Colon cancer Completed stroke Congenital disease Congenital heart disease Coronary thrombosis Cystic fibrosis Deafness or hearing loss Dementia Drug abuse Dysphasia Fibrocystic disease of breast Gastroenteritis Glaucoma Headache disorder Hypercholesterolemia Hypertension Infertility Kidney disease Myocardial infarction Neoplasm Not obtainable due to adoption Osteoporosis Parkinson's disease Prostate cancer Psychosocial problem Respiratory disorder Seizure disorder Severe allergy Thyroid disease Tuberculosis Visual disorder Heart Disease, Hypertension SOCIAL HISTORY: -SMOKING -ETOH- -DRUGS--CHRONIC MARIJUANA USE PAST SURGICAL HISTORY: -09/20/20--LAPAROSCOPY FOR INTUSSCEPTION BY DR. BHATTI -08/24/20 --EGD/COLONOSCOPY--DX GASTRITIS/ESOPHAGITIS -01/16/21--EGD BY DR. BHATTI--DX GASTRITIS/ESOPHAGITIS/SMALL HIATAL HERNIA -CHOLECYSTECTOMY -BILATERAL TUBAL LIGATION -HYSTERECTOMY/BILATERAL SALPINGO-OOPHORECTOMY 2005 -BLADDER SLING/LATER REMOVED -CARDIAC CATH 2012--NORMAL Physical Exam Vital Signs Vital Signs - First Documented 06/19/21 18:45 Temp 37.0 Pulse 111 Resp 22 B/P (MAP) 176/117 (136) Pulse Ox 97 O2 Delivery Room Air Capillary Refill : Height/Weight/BMI Height: 5'6.00" Weight: 203lbs. 6.4oz. 92.633537cu; 29.00 BMI Method:Stated General Appearance: WD/WN, mild distress Respiratory: chest non-tender, lungs clear, normal breath sounds Cardiovascular: normal peripheral pulses, regular rate, rhythm, no edema Gastrointestinal: normal bowel sounds, non tender, soft; No distended, No rebound, No tenderness Extremities: normal range of motion, non-tender, normal inspection, normal capillary refill Neurologic/Psychiatric: no motor/sensory deficits, alert, normal mood/affect, oriented x 3 Skin: normal color, warm/dry Progress/Results/Core Measures Results/Orders Lab Results Laboratory Tests Test 06/19/21 18:55 06/19/21 20:20 Range/Units White Blood Count 11.4 H 4.3-11.0 10^3/uL Red Blood Count 4.80 3.80-5.11 10^6/uL Hemoglobin 12.7 11.5-16.0 g/dL Hematocrit 40 35-52 % Mean Corpuscular Volume 83 80-99 fL Mean Corpuscular Hemoglobin 27 25-34 pg Mean Corpuscular Hemoglobin Concent 32 32-36 g/dL Red Cell Distribution Width 16.1 H 10.0-14.5 % Platelet Count 460 H 130-400 10^3/uL Mean Platelet Volume 10.0 9.0-12.2 fL Immature Granulocyte % (Auto) 0 % Neutrophils (%) (Auto) 71 42-75 % Lymphocytes (%) (Auto) 19 12-44 % Monocytes (%) (Auto) 9 0-12 % Eosinophils (%) (Auto) 0 0-10 % Basophils (%) (Auto) 0 0-10 % Neutrophils # (Auto) 8.1 H 1.8-7.8 10^3/uL Lymphocytes # (Auto) 2.2 1.0-4.0 10^3/uL Monocytes # (Auto) 1.1 H 0.0-1.0 10^3/uL Eosinophils # (Auto) 0.0 0.0-0.3 10^3/uL Basophils # (Auto) 0.0 0.0-0.1 10^3/uL Immature Granulocyte # (Auto) 0.1 0.0-0.1 10^3/uL Sodium Level 143 135-145 MMOL/L Potassium Level 3.1 L 3.6-5.0 MMOL/L Chloride Level 101 98-107 MMOL/L Carbon Dioxide Level 22 21-32 MMOL/L Anion Gap 20 H 5-14 MMOL/L Blood Urea Nitrogen 8 7-18 MG/DL Creatinine 0.96 0.60-1.30 MG/DL Estimat Glomerular Filtration Rate 75 BUN/Creatinine Ratio 8 Glucose Level 153 H 70-105 MG/DL Calcium Level 10.4 H 8.5-10.1 MG/DL Corrected Calcium 8.5-10.1 MG/DL Total Bilirubin 0.5 0.1-1.0 MG/DL Aspartate Amino Transf (AST/SGOT) 29 5-34 U/L Alanine Aminotransferase (ALT/SGPT) 28 0-55 U/L Alkaline Phosphatase 93 40-136 U/L Total Protein 8.1 6.4-8.2 GM/DL Albumin 4.6 H 3.2-4.5 GM/DL Urine Color YELLOW Urine Clarity CLEAR Urine pH 7.5 5-9 Urine Specific [place] 1.020 1.016-1.022 Urine Protein 1+ H NEGATIVE Urine Glucose (UA) NEGATIVE NEGATIVE Urine Ketones 1+ H NEGATIVE Urine Nitrite NEGATIVE NEGATIVE Urine Bilirubin NEGATIVE NEGATIVE Urine Urobilinogen 1.0 < = 1.0 MG/DL Urine Leukocyte Esterase NEGATIVE NEGATIVE Urine RBC (Auto) NEGATIVE NEGATIVE Urine RBC NONE /HPF Urine WBC 2-5 /HPF Urine Squamous Epithelial Cells 2-5 /HPF Urine Renal Epithelial Cells NONE /HPF Urine Crystals NONE /LPF Urine Bacteria FEW H /HPF Urine Casts NONE /LPF Urine Mucus LARGE H /LPF Urine Culture Indicated NO Urine Opiates Screen NEGATIVE NEGATIVE Urine Oxycodone Screen NEGATIVE NEGATIVE Urine Methadone Screen NEGATIVE NEGATIVE Urine Propoxyphene Screen NEGATIVE NEGATIVE Urine Barbiturates Screen NEGATIVE NEGATIVE Ur Tricyclic Antidepressants Screen NEGATIVE NEGATIVE Urine Phencyclidine Screen NEGATIVE NEGATIVE Urine Amphetamines Screen NEGATIVE NEGATIVE Urine Methamphetamines Screen NEGATIVE NEGATIVE Urine Benzodiazepines Screen NEGATIVE NEGATIVE Urine Cocaine Screen NEGATIVE NEGATIVE Urine Cannabinoids Screen NEGATIVE NEGATIVE My Orders Orders - CHRISTIANO ALANIZ Drug Screen Stat (Urine) (06/19/21 18:56) Ua Culture If Indicated (06/19/21 18:56) Ed Iv/Invasive Line Start (06/19/21 19:26) Lactated Ringers (Lr 1000 Ml Iv Solution (06/19/21 19:30) Scopolamine Patch (Transderm-Scop Patch) (06/19/21 19:26) Cbc With Automated Diff (06/19/21 20:01) Comprehensive Metabolic Panel (06/19/21 20:01) Haloperidol Injection (Haldol Injectio (06/19/21 20:55) Prochlorperazine Injection (Compazine In (06/19/21 20:55) Rx-Promethazine Hcl (Rx-Phenergan Supp) (06/19/21 21:59) Medications Given in ED Current Medications Medications Dose Ordered Sig/Judi Route Start Time Stop Time Status Last Admin Dose Admin Lactated Ringer's 1,000 ml @ 0 mls/hr Q0M ONCE IV 06/19/21 19:30 06/19/21 19:31 DC 06/19/21 19:37 0 MLS/HR Vital Signs/I&O 06/19/21 06/19/21 18:45 22:14 Temp 37.0 Pulse 111 105 Resp 22 20 B/P (MAP) 176/117 (136) 162/82 Pulse Ox 97 100 O2 Delivery Room Air Room Air Progress Progress Note : Time: 18:45 Progress Note Patient seen and evaluated, will obtain labs and give LR 1 L per IV. Scopolamine patch for nausea and vomiting. 2100 urine obtained, will check drug screen. Persistent vomiting despite the scopolamine, will give Haldol 2 mg IV and Compazine 10 mg IV. 2154 nausea has subsided, the patient has received a second liter of LR. She denies any complaints at this time. Discharge instructions and return precautions reviewed with the patient. Departure Impression Primary Impression: Cyclical vomiting syndrome Disposition: 01 HOME, SELF-CARE Condition: Stable Departure-Patient Inst. Decision time for Depature: 21:55 Referrals: [facility] (PCP) Primary Care Physician AUDREY ELIZABETH (Family) Primary Care Physician Patient Instructions: Nausea and Vomiting, Adult (DC) Add. Discharge Instructions: Take your home medications as prescribed. Follow-up with your primary care provider or general surgeon. Clear liquid diet for the next 6 to 8 h then bland diet as tolerated. Return to the emergency department for new, urgent healthcare needs. All discharge instructions reviewed with patient and/or family. Voiced understanding. CHRISTIANO ALANIZ Jun 19, 2021 19:14
[2021-06-19] MEDS ORDERED: SCOPOLAMINE 1.5 MG (TRANSDERM-SCOP) PATCH TD STA (19:26)
[2021-06-19] MEDS ORDERED: LACTATED RINGERS 1,000 ML IV ONE (19:30)
[2021-06-19 20:10] LABS: BASOPHILS % (AUTO) 0 % (0-10); EOSINOPHILS % (AUTO) 0 % (0-10); HEMATOCRIT 40 % (35-52); HEMOGLOBIN 12.7 g/dL (11.5-16.0); LYMPHOCYTES # (AUTO) 2.2 10^3/uL (1.0-4.0); LYMPHOCYTES % (AUTO) 19 % (12-44); MEAN CORPUSCULAR HEMOGLOBIN 27 pg (25-34); MEAN CORPUSCULAR HGB CONC 32 g/dL (32-36); MEAN CORPUSCULAR VOLUME 83 fL (80-99); MONOCYTES # (AUTO) 1.1 10^3/uL (0.0-1.0); MONOCYTES % (AUTO) 9 % (0-12); NEUTROPHILS # (AUTO) 8.1 10^3/uL (1.8-7.8); NEUTROPHILS % (AUTO) 71 % (42-75); PLATELET COUNT 460 10^3/uL (130-400); WHITE BLOOD COUNT 11.4 10^3/uL (4.3-11.0)
[2021-06-19 20:24] LABS: BILIRUBIN,URINE NEGATIVE (NEGATIVE); CLARITY,URINE CLEAR; COLOR,URINE YELLOW; GLUCOSE, URINE (UA) NEGATIVE (NEGATIVE); KETONES,URINE 1+ (NEGATIVE); LEUKOCYTE ESTERASE ,URINE NEGATIVE (NEGATIVE); NITRITE,URINE NEGATIVE (NEGATIVE); PH,URINE 7.5 (5-9); PROTEIN,URINE 1+ (NEGATIVE)
[2021-06-19 20:25] LABS: ALANINE AMINOTRANSFERASE 28 U/L (0-55); ALBUMIN 4.6 GM/DL (3.2-4.5); ALKALINE PHOSPHATASE 93 U/L (40-136); BILIRUBIN,TOTAL 0.5 MG/DL (0.1-1.0); BUN/CREATININE RATIO 8; CALCIUM 10.4 MG/DL (8.5-10.1); CARBON DIOXIDE 22 MMOL/L (21-32); CHLORIDE 101 MMOL/L (98-107); CREATININE SERUM 0.96 MG/DL (0.60-1.30); GFR ESTIMATED 75; GLUCOSE 153 MG/DL (70-105); POTASSIUM 3.1 MMOL/L (3.6-5.0); SODIUM 143 MMOL/L (135-145); TOTAL PROTEIN 8.1 GM/DL (6.4-8.2)
[2021-06-19 20:38] LABS: BACTERIA,URINE FEW /HPF
[2021-06-19 20:41] LABS: BENZODIAZEPINES SCREEN URINE NEGATIVE (NEGATIVE)
[2021-06-19 20:42] LABS: AMPHETAMINE SCREEN, URINE NEGATIVE (NEGATIVE); BARBITURATE SCREEN URINE NEGATIVE (NEGATIVE); CANNABINOID SCREEN, URINE NEGATIVE (NEGATIVE); COCAINE SCREEN URINE NEGATIVE (NEGATIVE); METHADONE STAT NEGATIVE (NEGATIVE); METHAMPHETAMINE SCREEN URINE S NEGATIVE (NEGATIVE); OPIATE SCREEN URINE NEGATIVE (NEGATIVE); OXYCODONE STAT NEGATIVE (NEGATIVE); PROPOXYPHENE STAT NEGATIVE (NEGATIVE); TRICYCLIC ANTIDEPRESSANTS SCRE NEGATIVE (NEGATIVE)
[2021-06-19] MEDS ORDERED: PROCHLORPERAZINE 10 MG/2ML INJ (COMPAZINE) IV STA (20:55)
[2021-06-19] MEDS ORDERED: HALOPERIDOL 5 MG/ML (HALDOL) VIAL IV STA (20:55)
[2021-06-19] MEDS ORDERED: RX-PHENERGAN 25 MG SUPP PPK#3 PR STA (21:59)
[2021-06-19 22:14] VITALS: BP 162/82
== END 2021-06-19 22:14 | disposition home or self-care (01) ==
LOC: EDUNIT# 17:45 → ER 17:46
DX: R11.2 Nausea with vomiting, unspecified (principal); J45.909 Unspecified asthma, uncomplicated; I10 Essential (primary) hypertension; K21.9 Gastro-esophageal reflux disease without esophagitis; Z79.899 Other long term (current) drug therapy
CPT/HCPCS: 36415; 80053; 80306; 81000; 85025; 96361; 96374; 96375

== ENCOUNTER 2021-06-25 13:12 | Emergency (ER) | payer SELFPAY ==
[~2021-06-25] VITALS: Ht 167.7 cm; Wt 72.7 kg
--- NOTE | 2021-06-25 13:28 | ED General ---
General Chief Complaint: Neurological Problems Stated Complaint: FACIAL NUMBNESS,CP Source of Information: Patient Exam Limitations: No Limitations (FAMILIA ELISE APRN) History of Present Illness Date Seen by Provider: Jun 25, 2021 Time Seen by Provider: 13:25 Initial Comments To ER with left-sided facial numbness and chest pain. She was eating some [employer] on Saturday when she felt like something got stuck in her throat. Now whenever she eats she feels like something is stuck in her throat and she has the recurrent chest pain, then that is followed by left facial numbness left arm numbness left leg numbness. Symptoms were intermittent since Saturday but constant since 6 AM this morning. She has been vomiting a lot lately. Timing/Duration: 2-3 Days, Getting Worse, Intermittent Severity: Moderate Associated Systoms: Denies Symptoms (FAMILIA ELISE APRN) Allergies and Home Medications Allergies Coded Allergies: morphine (Verified Allergy, Unknown, CAUSES "REBOUND HEADACHES", 12/13/20) PT HAS RECEIVED LORTAB & OXYCODONE IN THE PAST baclofen (Verified Adverse Reaction, Severe, 12/13/20) PATIENT UNAWARE OF REACTION BUT WAS HOSPITALIZED AFTER TAKING MEDICATION AND WAS TOLD IT WAS A REACTION DUE TO THE MEDICATION SHE TOOK. meloxicam (Verified Adverse Reaction, Severe, 12/13/20) PATIENT UNAWARE OF REACTION BUT WAS HOSPITALIZED AFTER TAKING MEDICATION AND WAS TOLD IT WAS A REACTION DUE TO THE MEDICATION SHE TOOK. NSAIDS (Non-Steroidal Anti-Inflamma (Verified Adverse Reaction, Mild, have IBS and avoid NSAIDS, 12/13/20) Patient Home Medication List Home Medication List Reviewed: Yes (FAMILIA ELISE APRN) Famotidine (Famotidine) 20 Mg Tablet, 20 MG PO BID, (Reported) Entered as Reported by: ZAIRA ARCHER on 05/05/21 1450 Metoclopramide HCl (Reglan) 10 Mg Tablet, 10 MG PO BID Prescribed by: FAMILIA ELISE on 05/26/21 1054 Potassium Chloride (Klor-Con M20) 20 Meq Tab.er.prt, 20 MEQ PO DAILY Prescribed by: KRYSTIN RAMOS on 05/08/21 1113 Spironolactone (Spironolactone) 25 Mg Tablet, 50 MG PO BID Prescribed by: KRYSTIN RAMOS on 05/08/21 1113 Tramadol HCl (Tramadol HCl) 50 Mg Tablet, 50 MG PO Q6H PRN for abdominal pain Prescribed by: ARIELLA WARNER on 05/13/21 1304 Review of Systems Review of Systems Constitutional: see HPI EENTM: see HPI Respiratory: no symptoms reported, see HPI Cardiovascular: see HPI Genitourinary: see HPI Musculoskeletal: see HPI Skin: no symptoms reported Psychiatric/Neurological: See HPI Hematologic/Lymphatic: No Symptoms Reported Immunological/Allergic: no symptoms reported (FAMILIA ELISE APRN) Past Rcqkgpj-Xlttbs-Wrptnd Hx Immunizations Up To Date Tetanus Booster (TDap): Unknown PED Vaccines UTD: No First/Initial COVID19 Vaccinat: May Second COVID19 Vaccination Marv: NONE Third COVID19 Vaccination Date: NONE (FAMILIA ELISE APRN) Seasonal Allergies Seasonal Allergies: No (FAMILIA ELISE APRN) Past Medical History Surgery/Hospitalization HX: TONSILLECTOMY HYSTERECTOMY BILATERAL TUBAL LIGATION CHOLECYSTECTOMY LAPAROSCOPY 09/19/[address] BHATTI FOR INTUSSUCEPTION EGD'S--LAST ONE 01/16/[address] BHATTI--SHOWED GASTRITIS, SMALL HIATAL. 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 Sexually Transmitted Disease: Yes (HPV) HIV/AIDS: No Genitourinary: Yes Bladder Infection Gastrointestinal: Yes (History of cyclic vomiting and cannabis hyperemesis;CHRONIC N/V/ABD PAIN ) Gastroesophageal Reflux, Diverticulosis, Esophagitis, Hiatal Hernia, Gall Bladder Disease Musculoskeletal: Yes Chronic Back Pain Endocrine: No HEENT: Yes (POOR DENTITION) Loss of Vision: Denies Hearing Impairment: Denies Cancer: Yes Uterine Psychosocial: Yes (THC USE) Anxiety, Depression Integumentary: No Blood Disorders: No Adverse Reaction/Blood Tranf: No (FAMILIA ELISE APRN) Family Medical History Diabetes mellitus 19 FATHER FHx: brain tumor 19 MOTHER HPV infection G8 SISTER No Family History of: AIDS Abdominal aortic aneurysm [place]'s disease Alcoholism Alzheimer's disease Aphasia Arthritis Asthma Cancer of mouth Cardiovascular disease Cataracts Colon cancer Completed stroke Congenital disease Congenital heart disease Coronary thrombosis Cystic fibrosis Deafness or hearing loss Dementia Drug abuse Dysphasia Fibrocystic disease of breast Gastroenteritis Glaucoma Headache disorder Hypercholesterolemia Hypertension Infertility Kidney disease Myocardial infarction Neoplasm Not obtainable due to adoption Osteoporosis Parkinson's disease Prostate cancer Psychosocial problem Respiratory disorder Seizure disorder Severe allergy Thyroid disease Tuberculosis Visual disorder Heart Disease, Hypertension SOCIAL HISTORY: -SMOKING -ETOH- -DRUGS--CHRONIC MARIJUANA USE PAST SURGICAL HISTORY: -09/20/20--LAPAROSCOPY FOR INTUSSCEPTION BY DR. BHATTI -08/24/20 --EGD/COLONOSCOPY--DX GASTRITIS/ESOPHAGITIS -01/16/21--EGD BY DR. BHATTI--DX GASTRITIS/ESOPHAGITIS/SMALL HIATAL HERNIA -CHOLECYSTECTOMY -BILATERAL TUBAL LIGATION -HYSTERECTOMY/BILATERAL SALPINGO-OOPHORECTOMY 2005 -BLADDER SLING/LATER REMOVED -CARDIAC CATH 2012--NORMAL (FAMILIA ELISE APRN) Physical Exam Vital Signs Vital Signs - First Documented 06/25/21 13:16 Temp 36.3 Pulse 133 Resp 18 B/P (MAP) 145/113 (124) Pulse Ox 98 O2 Delivery Room Air (MARY VITAL MD) Vital Signs Capillary Refill : (FAMILIA ELISE APRN) Height, Weight, BMI Height: 5'6.00" Weight: 203lbs. 6.4oz. 92.341672ln; 29.00 BMI Method:Stated General Appearance: No Apparent Distress, WD/WN, Other (Tachycardic at 131 blood pressure 140/100, she is retching. Respiratory rate 27 oxygen 99% room air. Her NIH is 0 without noticeable motor or sensory deficit.) Eyes: Bilateral Eye Normal Inspection, Bilateral Eye PERRL, Bilateral Eye EOMI HEENT: PERRL/EOMI, TMs Normal Neck: Full Range of Motion, Normal Inspection Respiratory: No Accessory Muscle Use, No Respiratory Distress Cardiovascular: Normal Peripheral Pulses, Tachycardia Gastrointestinal: Normal Bowel Sounds, Non Tender, Soft Extremity: Normal Capillary Refill, Normal Inspection Neurologic/Psychiatric: Alert, Oriented x3 Skin: Normal Color (To see how he), Warm/Dry (FAMILIA ELISE APRN) Focused Exam Lactate Level 06/25/21 14:24: Lactic Acid Level 1.49 (MARY VITAL MD) Lactic Acid Level Laboratory Tests Test 06/25/21 14:24 Lactic Acid Level 1.49 MMOL/L (0.50-2.00) (MARY VITAL MD) Progress/Results/Core Measures Suspected Sepsis SIRS Temperature: Pulse: Respiratory Rate: Laboratory Tests 06/25/21 13:20: White Blood Count 14.8H Blood Pressure / Mean: 06/25/21 14:24: Lactic Acid Level 1.49 Laboratory Tests 06/25/21 13:20: Creatinine 0.96, INR Comment 0.9, Platelet Count 530H, Total Bilirubin 0.7 (FAMILIA ELISE APRN) Results/Orders Lab Results Laboratory Tests Test 06/25/21 13:20 06/25/21 14:24 06/25/21 15:30 Range/Units White Blood Count 14.8 H 4.3-11.0 10^3/uL Red Blood Count 5.70 H 3.80-5.11 10^6/uL Hemoglobin 15.1 11.5-16.0 g/dL Hematocrit 47 35-52 % Mean Corpuscular Volume 82 80-99 fL Mean Corpuscular Hemoglobin 27 25-34 pg Mean Corpuscular Hemoglobin Concent 32 32-36 g/dL Red Cell Distribution Width 16.1 H 10.0-14.5 % Platelet Count 530 H 130-400 10^3/uL Mean Platelet Volume 9.7 9.0-12.2 fL Immature Granulocyte % (Auto) 0 % Neutrophils (%) (Auto) 79 H 42-75 % Lymphocytes (%) (Auto) 14 12-44 % Monocytes (%) (Auto) 6 0-12 % Eosinophils (%) (Auto) 0 0-10 % Basophils (%) (Auto) 0 0-10 % Neutrophils # (Auto) 11.7 H 1.8-7.8 10^3/uL Lymphocytes # (Auto) 2.1 1.0-4.0 10^3/uL Monocytes # (Auto) 0.9 0.0-1.0 10^3/uL Eosinophils # (Auto) 0.0 0.0-0.3 10^3/uL Basophils # (Auto) 0.0 0.0-0.1 10^3/uL Immature Granulocyte # (Auto) 0.1 0.0-0.1 10^3/uL Neutrophils % (Manual) 72 % Lymphocytes % (Manual) 22 % Monocytes % (Manual) 4 % Atypical Lymphocytes 2 % Blood Morphology Comment NORMAL Prothrombin Time 12.5 12.2-14.7 SEC INR Comment 0.9 0.8-1.4 D-Dimer 0.54 H 0.00-0.49 UG/ML Sodium Level 139 135-145 MMOL/L Potassium Level 2.8 L 3.6-5.0 MMOL/L Chloride Level 91 L 98-107 MMOL/L Carbon Dioxide Level 22 21-32 MMOL/L Anion Gap 26 H 5-14 MMOL/L Blood Urea Nitrogen 21 H 7-18 MG/DL Creatinine 0.96 0.60-1.30 MG/DL Estimat Glomerular Filtration Rate 75 BUN/Creatinine Ratio 22 Glucose Level 135 H 70-105 MG/DL Calcium Level 10.8 H 8.5-10.1 MG/DL Corrected Calcium 8.5-10.1 MG/DL Total Bilirubin 0.7 0.1-1.0 MG/DL Aspartate Amino Transf (AST/SGOT) 29 5-34 U/L Alanine Aminotransferase (ALT/SGPT) 28 0-55 U/L Alkaline Phosphatase 94 40-136 U/L Troponin I < 0.028 <0.028 NG/ML Total Protein 9.0 H 6.4-8.2 GM/DL Albumin 4.8 H 3.2-4.5 GM/DL Lipase 66 8-78 U/L Procalcitonin 0.05 <0.10 NG/ML Serum Test, Qualitative NEGATIVE NEGATIVE Serum Alcohol < 10 <10 MG/DL Lactic Acid Level 1.49 0.50-2.00 MMOL/L Urine Color YELLOW Urine Clarity CLEAR Urine pH 5.5 5-9 Urine Specific [place] <=1.005 1.016-1.022 Urine Protein TRACE H NEGATIVE Urine Glucose (UA) NEGATIVE NEGATIVE Urine Ketones 2+ H NEGATIVE Urine Nitrite NEGATIVE NEGATIVE Urine Bilirubin 2+ H NEGATIVE Urine Urobilinogen 1.0 < = 1.0 MG/DL Urine Leukocyte Esterase NEGATIVE NEGATIVE Urine RBC (Auto) NEGATIVE NEGATIVE Urine RBC NONE /HPF Urine WBC 0-2 /HPF Urine Squamous Epithelial Cells 0-2 /HPF Urine Crystals NONE /LPF Urine Bacteria NEGATIVE /HPF Urine Casts NONE /LPF Urine Mucus NEGATIVE /LPF Urine Culture Indicated NO Urine Opiates Screen NEGATIVE NEGATIVE Urine Oxycodone Screen NEGATIVE NEGATIVE Urine Methadone Screen NEGATIVE NEGATIVE Urine Propoxyphene Screen NEGATIVE NEGATIVE Urine Barbiturates Screen NEGATIVE NEGATIVE Ur Tricyclic Antidepressants Screen NEGATIVE NEGATIVE Urine Phencyclidine Screen NEGATIVE NEGATIVE Urine Amphetamines Screen NEGATIVE NEGATIVE Urine Methamphetamines Screen NEGATIVE NEGATIVE Urine Benzodiazepines Screen POSITIVE H NEGATIVE Urine Cocaine Screen NEGATIVE NEGATIVE Urine Cannabinoids Screen NEGATIVE NEGATIVE (MARY VITAL MD) Medications Given in ED Current Medications Medications Dose Ordered Sig/Judi Route Start Time Stop Time Status Last Admin Dose Admin Diphenhydramine HCl 25 mg ONCE ONCE IVP 06/25/21 15:15 06/25/21 15:16 DC 06/25/21 15:23 25 MG Haloperidol Lactate 5 mg ONCE ONCE IV 06/25/21 13:30 06/25/21 13:31 DC 06/25/21 13:36 5 MG Iohexol 100 ml ONCE ONCE IV 06/25/21 14:15 06/25/21 14:16 DC 06/25/21 14:09 75 ML Labetalol HCl 10 mg ONCE ONCE IV 06/25/21 15:00 06/25/21 15:01 DC 06/25/21 15:26 10 MG Lorazepam 1 mg ONCE ONCE IVP 06/25/21 13:30 06/25/21 13:31 DC 06/25/21 13:35 1 MG Potassium Chloride 50 ml @ 50 mls/hr ONCE ONCE IV 06/25/21 13:45 06/25/21 14:44 DC 06/25/21 14:33 50 MLS/HR Sodium Chloride 100 ml ONCE ONCE IV 06/25/21 14:15 06/25/21 14:16 DC 06/25/21 14:09 80 ML (MARY VITAL MD) Vital Signs/I&O 06/25/21 06/25/21 06/25/21 13:16 16:17 17:19 Temp 36.3 Pulse 133 96 100 Resp 18 18 18 B/P (MAP) 145/113 (124) 137/94 179/97 Pulse Ox 98 96 97 O2 Delivery Room Air Room Air (MARY VITAL MD) Vital Signs/I&O Capillary Refill : (FAMILIA ELISE APRN) Departure Communication (Admissions) NAME: DORIAN BROWN [facility] REC#: [id number] PT STATUS: REG ER : 1975 PHYSICIAN: FAMILIA ELISE APRN ADMIT DATE: 06/25/21/ER Draft Date of Exam:06/25/21 CT ANGIO HEAD/NECK PROCEDURE: CT angiography of the head and CT angiography of the neck with and without contrast. TECHNIQUE: Contiguous noncontrast images were obtained from the skull base through the vertex. After intravenous contrast administration, helical CT angiography of the neck was performed. Source data was reformatted into 3D MIP projections. Delayed post contrast acquisition was also obtained. Auto Exposure Controls were utilized during the CT exam to meet ALARA standards for radiation dose reduction. INDICATION: Dysphagia. COMPARISON: CT head without contrast 12/11/2019. FINDINGS: Noncontrast head CT demonstrates no CT evidence of an acute territorial infarction. No intracranial hemorrhage, mass effect, hydrocephalus or extra-axial fluid collections. No abnormal intracranial enhancement on delayed postcontrast imaging. CTA demonstrates a conventional aortic arch. No high-grade narrowing, aneurysm, dissection involving the basilar, bilateral vertebral, common carotid, internal carotid, anterior cerebral, middle cerebral or posterior cerebral arteries. The dural venous sinuses are normally opacified. No acute osseous findings. Mucosal thickening in the sphenoid sinus. Mastoids are clear. No acute CT findings in the neck. Specifically, the airways are widely patent with no radiopaque foreign bodies. Multiple dental caries and periapical lucencies. The lung apices are clear. IMPRESSION: 1. No high-grade narrowing, aneurysm or dissection involving major arteries in the head and neck. 2. No acute intracranial CT findings. 3. Mucosal thickening in the sphenoid sinus. 4. Multiple dental caries and periapical lucencies. Dictated on workstation # [id number] Dict: 06/25/21 1416 Trans: 06/25/21 1438 [facility] [id number] Interpreted by: CHEY MENESES MD Electronically signed by: (FAMILIA ELISE APRN) Impression Primary Impression: Cyclical vomiting syndrome Additional Impression: Dehydration Disposition: 01 HOME, SELF-CARE Condition: Stable Departure-Patient Inst. Decision time for Depature: 16:04 (FAMILIA ELISE APRN) Referrals: [facility] (PCP) Primary Care Physician AUDREY ELIZABETH (Family) Primary Care Physician Patient Instructions: Nausea and Vomiting, Adult Add. Discharge Instructions: 1. Return to ER for any concerns 2. Follow-up with your doctor next week All discharge instructions reviewed with patient and/or family. Voiced understanding. ATTENDING PHYSICIAN NOTE: I was physically present as attending physician in the emergency department during the care of this patient, but I was not directly involved in the decision making or delivery of care for this patient. (MARY VITAL MD) NIH Stroke Scale NIH Stroke Scale NIH : Select: Initial Level of Consciousness: 0=Alert Level of Consciousness-Questio: 0=Answers both month/age LOC Commands: 0=Performs both tasks Gaze: 0=Normal Visual Wilhelm: 0=No visual loss Facial Movement (Facial Paresi: 0=Normal symmetrical mnt Motor Function-Arms Right: 0=No drift Motor Function-Arms Left: 0=No drift Motor Function-Legs Right: 0=No drift Motor Function-Legs Left: 0=No drift Limb Ataxia: 0=Absent Sensory: 0=Normal:no loss Best Language: 1=Mild to moderat aphasia Dysarthria: 0=Normal Extinction & Inattention: 0=No abnormality NIH Stroke Scale Score: 0 (FAMILIA ELISE NITROGLYCERIN SUPERVISOR) FAMILIA ELISE APRN Jun 25, 2021 13:28 MARY VITAL MD Jun 25, 2021 19:12
[2021-06-25] MEDS ORDERED: HALOPERIDOL 5 MG/ML (HALDOL) VIAL IV ONE (13:30)
[2021-06-25] MEDS ORDERED: LORazepam INJ 2 MG/ML (ATIVAN) VIAL IVP ONE (13:30)
[2021-06-25] MEDS ORDERED: NS IV 1000 ML 1,000 ML IV SCH (13:30)
[2021-06-25 13:32] LABS: BASOPHILS % (AUTO) 0 % (0-10); EOSINOPHILS % (AUTO) 0 % (0-10); HEMATOCRIT 47 % (35-52); HEMOGLOBIN 15.1 g/dL (11.5-16.0); LYMPHOCYTES # (AUTO) 2.1 10^3/uL (1.0-4.0); LYMPHOCYTES % (AUTO) 14 % (12-44); MEAN CORPUSCULAR HEMOGLOBIN 27 pg (25-34); MEAN CORPUSCULAR HGB CONC 32 g/dL (32-36); MEAN CORPUSCULAR VOLUME 82 fL (80-99); MEAN PLATELET VOLUME 9.7 fL (9.0-12.2); MONOCYTES # (AUTO) 0.9 10^3/uL (0.0-1.0); MONOCYTES % (AUTO) 6 % (0-12); NEUTROPHILS # (AUTO) 11.7 10^3/uL (1.8-7.8); NEUTROPHILS % (AUTO) 79 % (42-75); PLATELET COUNT 530 10^3/uL (130-400); WHITE BLOOD COUNT 14.8 10^3/uL (4.3-11.0)
[2021-06-25 13:41] LABS: ALBUMIN 4.8 GM/DL (3.2-4.5); CHLORIDE 91 MMOL/L (98-107); POTASSIUM 2.8 MMOL/L (3.6-5.0); SODIUM 139 MMOL/L (135-145)
[2021-06-25 13:42] LABS: CALCIUM 10.8 MG/DL (8.5-10.1)
[2021-06-25 13:43] LABS: FIBRIN DEGRADATION PRODUCTS 0.54 UG/ML (0.00-0.49); GLUCOSE 135 MG/DL (70-105)
[2021-06-25 13:44] LABS: CARBON DIOXIDE 22 MMOL/L (21-32)
[2021-06-25 13:45] LABS: BILIRUBIN,TOTAL 0.7 MG/DL (0.1-1.0)
[2021-06-25] MEDS ORDERED: POTASSIUM CL 10MEQ/50ML IVPB 50 ML IV ONE (13:45)
[2021-06-25 13:47] LABS: ALKALINE PHOSPHATASE 94 U/L (40-136); CREATININE SERUM 0.96 MG/DL (0.60-1.30); GFR ESTIMATED 75
[2021-06-25 13:48] LABS: BUN/CREATININE RATIO 22
[2021-06-25 13:50] LABS: ALANINE AMINOTRANSFERASE 28 U/L (0-55); LIPASE 66 U/L (8-78)
[2021-06-25 13:51] LABS: ATYPICAL LYMPHOCYTES 2 %; LYMPHOCYTES % (MANUAL) 22 %; MONOCYTES % (MANUAL) 4 %; NEUTROPHILS % (MANUAL) 72 %; RBC MORPH NORMAL
[2021-06-25] MEDS ORDERED: HOLD METFORMIN - RECEIVED CONTRAST 20 ML VIAL IV SCH (14:15)
[2021-06-25] MEDS ORDERED: IOHEXOL 350 MG/ML 100 ML (OMNIPAQUE 350) VIAL IV ONE (14:15)
[2021-06-25] MEDS ORDERED: NS 100 ML (IVPB) BAG IV ONE (14:15)
--- NOTE | 2021-06-25 14:20 | Diagnostic Imaging Report ---
INDICATION: Chest pain and dizziness. TIME OF EXAM: 2:06 PM CORRELATION is made with prior chest from 11/15/2019. FINDINGS: The heart size is normal. The pulmonary vascularity is unremarkable. The lungs are clear. No infiltrate, effusion or pneumothorax is detected. IMPRESSION: No acute cardiopulmonary process is detected. Dictated by: Dictated on workstation # [id number]
--- NOTE | 2021-06-25 14:40 | Diagnostic Imaging Report ---
PROCEDURE: CT angiography of the head and CT angiography of the neck with and without contrast. TECHNIQUE: Contiguous noncontrast images were obtained from the skull base through the vertex. After intravenous contrast administration, helical CT angiography of the neck was performed. Source data was reformatted into 3D MIP projections. Delayed post contrast acquisition was also obtained. Auto Exposure Controls were utilized during the CT exam to meet ALARA standards for radiation dose reduction. INDICATION: Dysphagia. COMPARISON: CT head without contrast 12/11/2019. FINDINGS: Noncontrast head CT demonstrates no CT evidence of an acute territorial infarction. No intracranial hemorrhage, mass effect, hydrocephalus or extra-axial fluid collections. No abnormal intracranial enhancement on delayed postcontrast imaging. CTA demonstrates a conventional aortic arch. No high-grade narrowing, aneurysm, dissection involving the basilar, bilateral vertebral, common carotid, internal carotid, anterior cerebral, middle cerebral or posterior cerebral arteries. The dural venous sinuses are normally opacified. No acute osseous findings. Mucosal thickening in the sphenoid sinus. Mastoids are clear. No acute CT findings in the neck. Specifically, the airways are widely patent with no radiopaque foreign bodies. Multiple dental caries and periapical lucencies. The lung apices are clear. IMPRESSION: 1. No high-grade narrowing, aneurysm or dissection involving major arteries in the head and neck. 2. No acute intracranial CT findings. 3. Mucosal thickening in the sphenoid sinus. 4. Multiple dental caries and periapical lucencies. Dictated by: Dictated on workstation # [id number]
[2021-06-25 14:49] LABS: INR 0.9 (0.8-1.4); PROTHROMBIN TIME PATIENT 12.5 SEC (12.2-14.7)
[2021-06-25] MEDS ORDERED: LABETALOL HCL 20 MG/4 ML VIAL IV ONE (15:00)
[2021-06-25] MEDS ORDERED: LACTATED RINGERS 1,000 ML IV SCH (15:15)
[2021-06-25] MEDS ORDERED: diphenhydrAMINE 50 MG/ML INJ (BENADRYL) IVP ONE (15:15)
[2021-06-25 15:41] LABS: CLARITY,URINE CLEAR; COLOR,URINE YELLOW; GLUCOSE, URINE (UA) NEGATIVE (NEGATIVE); KETONES,URINE 2+ (NEGATIVE); LEUKOCYTE ESTERASE ,URINE NEGATIVE (NEGATIVE); NITRITE,URINE NEGATIVE (NEGATIVE); PH,URINE 5.5 (5-9); PROTEIN,URINE TRACE (NEGATIVE)
[2021-06-25 15:50] LABS: BACTERIA,URINE NEGATIVE /HPF; BILIRUBIN,URINE 2+ (NEGATIVE); SQUAMOUS EPITHELIAL CELL,UR 0-2 /HPF; WBC,URINE 0-2 /HPF
[2021-06-25 15:53] LABS: AMPHETAMINE SCREEN, URINE NEGATIVE (NEGATIVE); BARBITURATE SCREEN URINE NEGATIVE (NEGATIVE); BENZODIAZEPINES SCREEN URINE POSITIVE (NEGATIVE); CANNABINOID SCREEN, URINE NEGATIVE (NEGATIVE); COCAINE SCREEN URINE NEGATIVE (NEGATIVE); METHADONE STAT NEGATIVE (NEGATIVE); METHAMPHETAMINE SCREEN URINE S NEGATIVE (NEGATIVE); OPIATE SCREEN URINE NEGATIVE (NEGATIVE); OXYCODONE STAT NEGATIVE (NEGATIVE); PROPOXYPHENE STAT NEGATIVE (NEGATIVE); TRICYCLIC ANTIDEPRESSANTS SCRE NEGATIVE (NEGATIVE)
[2021-06-25 17:19] VITALS: BP 179/97
== END 2021-06-25 17:21 | disposition home or self-care (01) ==
LOC: EDUNIT# 13:12 → ER 13:13
DX: R11.10 Vomiting, unspecified (principal); E86.0 Dehydration; J45.909 Unspecified asthma, uncomplicated; I10 Essential (primary) hypertension; K21.9 Gastro-esophageal reflux disease without esophagitis; G89.29 Other chronic pain; M54.9 Dorsalgia, unspecified; Z79.891 Long term (current) use of opiate analgesic
CPT/HCPCS: 51701; 70496; 70498; 71045; 80053; 80306; 81000; 83605; 83690; 84145; 84484; 84703; 85007; 85027; 85379; 85610; G0480; 36415; 80320; 93005

== ENCOUNTER 2021-10-30 06:13 | Emergency (ER) | payer SELFPAY ==
[~2021-10-30] VITALS: Ht 167.7 cm; Wt 81.3 kg
[~2021-10-30 06:13] MED LIST changes: -ASPI-789 PO; +ASPI1TAB23 PO
--- NOTE | 2021-10-30 06:32 | ED General ---
General Chief Complaint: Neurological Problems Stated Complaint: VOMITING Source of Information: Patient Exam Limitations: No Limitations History of Present Illness Date Seen by Provider: October 30, 2021 Time Seen by Provider: 06:20 Initial Comments Maggy is a 46yo female to the ED with a chief complaint of N/V and vague abdominal pain onset while at work last night around 11pm. She has a history of cyclic vomiting syndrome. She sees Dr Gramajo as her "stomach doctor". SHe states she has been "clean" from THC since Apr of last year. She denies bloody emesis or recent bloody stools. She states she has run out of her dissolvable zofran. No fevers, chills or URI symptoms. No dysuria, urgency or frequency. No r ashes, joint pains or swelling. There is nothing different today than her usual episodes of vomiting. All other ROS reviewed and negative except as stated. Timing/Duration: 4-6 Hours Severity: Moderate Associated Systoms: Nausea/Vomiting, Other (abdominal pain) Allergies and Home Medications Allergies Coded Allergies: morphine (Verified Allergy, Unknown, CAUSES "REBOUND HEADACHES", 12/13/20) PT HAS RECEIVED LORTAB & OXYCODONE IN THE PAST baclofen (Verified Adverse Reaction, Severe, 12/13/20) PATIENT UNAWARE OF REACTION BUT WAS HOSPITALIZED AFTER TAKING MEDICATION AND WAS TOLD IT WAS A REACTION DUE TO THE MEDICATION SHE TOOK. meloxicam (Verified Adverse Reaction, Severe, 12/13/20) PATIENT UNAWARE OF REACTION BUT WAS HOSPITALIZED AFTER TAKING MEDICATION AND WAS TOLD IT WAS A REACTION DUE TO THE MEDICATION SHE TOOK. NSAIDS (Non-Steroidal Anti-Inflamma (Verified Adverse Reaction, Mild, have IBS and avoid NSAIDS, 12/13/20) Patient Home Medication List Home Medication List Reviewed: Yes Famotidine (Famotidine) 20 Mg Tablet, 20 MG PO BID, (Reported) Entered as Reported by: ZAIRA ARCHER on 05/05/21 1450 Metoclopramide HCl (Reglan) 10 Mg Tablet, 10 MG PO BID Prescribed by: FAMILIA ELISE on 05/26/21 1054 Ondansetron (Ondansetron Odt) 8 Mg Tab.rapdis, 8 MG PO Q8H PRN for nausea Prescribed by: ARIELLA WARNER on 10/30/21 0834 Potassium Chloride (Klor-Con M20) 20 Meq Tab.er.prt, 20 MEQ PO DAILY Prescribed by: KRYSTIN RAMOS on 05/08/21 1113 Spironolactone (Spironolactone) 25 Mg Tablet, 50 MG PO BID Prescribed by: KRYSTIN RAMOS on 05/08/21 1113 Tramadol HCl (Tramadol HCl) 50 Mg Tablet, 50 MG PO Q6H PRN for abdominal pain Prescribed by: ARIELLA WARNER on 05/13/21 1304 Review of Systems Review of Systems Constitutional: see HPI EENTM: no symptoms reported Respiratory: no symptoms reported Cardiovascular: no symptoms reported Gastrointestinal: abdominal pain, nausea, vomiting Genitourinary: no symptoms reported : No Musculoskeletal: no symptoms reported Skin: no symptoms reported Psychiatric/Neurological: No Symptoms Reported All Other Systems Reviewed Negative Unless Noted: Yes Past Donjbsk-Dkipax-Kibawp Hx Patient Social History Tobacco Use?: No Use of E-Cig and/or Vaping dev: No Substance use?: No Alcohol Use?: No Pt feels they are or have been: No Immunizations Up To Date Tetanus Booster (TDap): Unknown PED Vaccines UTD: No Influenza Vaccine Up-to-Date: No; Not Current First/Initial COVID19 Vaccinat: APR Second COVID19 Vaccination Marv: APR Third COVID19 Vaccination Date: APR Seasonal Allergies Seasonal Allergies: No Past Medical History Surgery/Hospitalization HX: TONSILLECTOMY HYSTERECTOMY BILATERAL TUBAL LIGATION CHOLECYSTECTOMY LAPAROSCOPY 09/19/[address] BHATTI FOR INTUSSUCEPTION EGD'S--LAST ONE 01/16/[address] BHATTI--SHOWED GASTRITIS, SMALL HIATAL. 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 Sexually Transmitted Disease: Yes (HPV) HIV/AIDS: No Genitourinary: Yes Bladder Infection Gastrointestinal: Yes (History of cyclic vomiting and cannabis hypereme sis;CHRONIC N/V/ABD PAIN ) Gastroesophageal Reflux, Diverticulosis, Esophagitis, Hiatal Hernia, Gall Bladder Disease Musculoskeletal: Yes Chronic Back Pain Endocrine: No HEENT: Yes (POOR DENTITION) Loss of Vision: Denies Hearing Impairment: Denies Cancer: Yes Uterine Psychosocial: Yes (THC USE) Anxiety, Depression Integumentary: No Blood Disorders: No Adverse Reaction/Blood Tranf: No Family Medical History Diabetes mellitus 19 FATHER FHx: brain tumor 19 MOTHER HPV infection G8 SISTER No Family History of: AIDS Abdominal aortic aneurysm Boone's disease Alcoholism Alzheimer's disease Aphasia Arthritis Asthma Cancer of mouth Cardiovascular disease Cataracts Colon cancer Completed stroke Congenital disease Congenital heart disease Coronary thrombosis Cystic fibrosis Deafness or hearing loss Dementia Drug abuse Dysphasia Fibrocystic disease of breast Gastroenteritis Glaucoma Headache disorder Hypercholesterolemia Hypertension Infertility Kidney disease Myocardial infarction Neoplasm Not obtainable due to adoption Osteoporosis Parkinson's disease Prostate cancer Psychosocial problem Respiratory disorder Seizure disorder Severe allergy Thyroid disease Tuberculosis Visual disorder Heart Disease, Hypertension SOCIAL HISTORY: -SMOKING -ETOH- -DRUGS--CHRONIC MARIJUANA USE PAST SURGICAL HISTORY: -09/20/20--LAPAROSCOPY FOR INTUSSCEPTION BY DR. BHATTI -08/24/20 --EGD/COLONOSCOPY--DX GASTRITIS/ESOPHAGITIS -01/16/21--EGD BY DR. BHATTI--DX GASTRITIS/ESOPHAGITIS/SMALL HIATAL HERNIA -CHOLECYSTECTOMY -BILATERAL TUBAL LIGATION -HYSTERECTOMY/BILATERAL SALPINGO-OOPHORECTOMY 2005 -BLADDER SLING/LATER REMOVED -CARDIAC CATH 2012--NORMAL Physical Exam Vital Signs Vital Signs - First Documented 10/30/21 06:28 Temp 36.4 Pulse 98 Resp 18 B/P (MAP) 179/95 (123) Pulse Ox 96 O2 Delivery Room Air Capillary Refill : Height, Weight, BMI Height: 5'6.00" Weight: 203lbs. 6.4oz. 92.850111sd; 25.00 BMI Method:Stated General Appearance: No Apparent Distress, WD/WN Eyes: Bilateral Eye Normal Inspection, Bilateral Eye PERRL, Bilateral Eye EOMI HEENT: PERRL/EOMI, Normal ENT Inspection, Pharynx Normal, Moist Mucous Membran es Neck: Normal Inspection Respiratory: Lungs Clear, Normal Breath Sounds, No Accessory Muscle Use, No Respiratory Distress Cardiovascular: Regular Rate, Rhythm, Normal Peripheral Pulses Gastrointestinal: Normal Bowel Sounds, Soft, Tenderness (diffuse mild tenderness) Progress/Results/Core Measures Suspected Sepsis SIRS Temperature: Pulse: Respiratory Rate: Laboratory Tests 10/30/21 07:00: White Blood Count 9.9 Blood Pressure / Mean: Laboratory Tests 10/30/21 07:00: Creatinine 1.23, Platelet Count 402H Results/Orders Lab Results Laboratory Tests Test 10/30/21 07:00 Range/Units White Blood Count 9.9 4.3-11.0 10^3/uL Red Blood Count 4.71 3.80-5.11 10^6/uL Hemoglobin 12.3 11.5-16.0 g/dL Hematocrit 39 35-52 % Mean Corpuscular Volume 82 80-99 fL Mean Corpuscular Hemoglobin 26 25-34 pg Mean Corpuscular Hemoglobin Concent 32 32-36 g/dL Red Cell Distribution Width 16.0 H 10.0-14.5 % Platelet Count 402 H 130-400 10^3/uL Mean Platelet Volume 10.1 9.0-12.2 fL Immature Granulocyte % (Auto) 0 % Neutrophils (%) (Auto) 87 H 42-75 % Lymphocytes (%) (Auto) 8 L 12-44 % Monocytes (%) (Auto) 4 0-12 % Eosinophils (%) (Auto) 0 0-10 % Basophils (%) (Auto) 0 0-10 % Neutrophils # (Auto) 8.6 H 1.8-7.8 10^3/uL Lymphocytes # (Auto) 0.8 L 1.0-4.0 10^3/uL Monocytes # (Auto) 0.4 0.0-1.0 10^3/uL Eosinophils # (Auto) 0.0 0.0-0.3 10^3/uL Basophils # (Auto) 0.0 0.0-0.1 10^3/uL Immature Granulocyte # (Auto) 0.0 0.0-0.1 10^3/uL Neutrophils % (Manual) 81 % Lymphocytes % (Manual) 12 % Monocytes % (Manual) 7 % Eosinophils % (Manual) 0 % Basophils % (Manual) 0 % Anisocytosis SLIGHT Sodium Level 141 135-145 MMOL/L Potassium Level 3.8 3.6-5.0 MMOL/L Chloride Level 103 98-107 MMOL/L Carbon Dioxide Level 16 L 21-32 MMOL/L Anion Gap 22 H 5-14 MMOL/L Blood Urea Nitrogen 12 7-18 MG/DL Creatinine 1.23 0.60-1.30 MG/DL Estimat Glomerular Filtration Rate 56 BUN/Creatinine Ratio 10 Glucose Level 132 H 70-105 MG/DL Calcium Level 11.2 H 8.5-10.1 MG/DL My Orders Orders - ARIELLA WARNER MD Ed Iv/Invasive Line Start (10/30/21 06:41) Cbc With Automated Diff (10/30/21 06:41) Basic Metabolic Panel (10/30/21 06:41) Ns Iv 1000 Ml (Sodium Chloride 0.9%) (10/30/21 06:45) Accucheck Stat ONCE (10/30/21 06:41) Promethazine Injection (Phenergan Injec (10/30/21 06:45) Diphenhydramine Injection (Benadryl Inje (10/30/21 06:45) Lorazepam Injection (Ativan Injection) (10/30/21 06:41) Manual Differential (10/30/21 07:00) Lactated Ringers (Lr 1000 Ml Iv Solution (10/30/21 08:45) Lorazepam Injection (Ativan Injection) (10/30/21 09:00) Ondansetron Injection (Zofran Injectio (10/30/21 09:00) Medications Given in ED Vital Signs/I&O 10/30/21 10/30/21 06:28 10:06 Temp 36.4 Pulse 98 109 Resp 18 18 B/P (MAP) 179/95 (123) 131/74 Pulse Ox 96 98 O2 Delivery Room Air Capillary Refill : Progress Note #1: Time: 08:30 Progress Note patient re-evaluated after medications. she is "still nauseated". has had 1L of fluids and multiple medications. resting quietly in the room. lights off. Labs reviewed. look good. will give one more liter of fluid and dismiss with zofran. she has no on going vomiting or retching or "dry heaving". She has CHRONIC n/v. No clinical or objective findings to warrant further studies or admission at this time. Progress Note #2: Time: 08:54 Progress Note Patient is now sitting up in the bed continually retching, being very dramatic. Second liter of fluids is being hung. I am forced to give her some more medicine Departure Impression Primary Impression: Nausea and vomiting Qualified Codes: R11.2 - Nausea with vomiting, unspecified Disposition: 01 HOME, SELF-CARE Condition: Improved Departure-Patient Inst. Decision time for Depature: 08:32 Referrals: [facility] (PCP) Primary Care Physician AUDREY ELIZABETH (Family) Primary Care Physician Patient Instructions: Nausea and Vomiting, Adult ED Add. Discharge Instructions: Take the Zofran every 8 hours as needed for nausea and vomiting. Please keep up with all your other daily medications. Call [facility] tomorrow for a follow-up appointment and further evaluation. Return to the emergency room for worsening symptoms such as fever, blood in your vomit, blood in your stool or any other emergent concerning symptoms. Scripts Ondansetron (Ondansetron Odt) 8 Mg Tab.rapdis 8 MG PO Q8H PRN for nausea, #20 TAB Prov: ARIELLA WARNER MD 10/30/21 Copy Copies To 1: ANNE BYRD KATHRYN M MD October 30, 2021 06:32
[2021-10-30] MEDS ORDERED: LORazepam INJ 2 MG/ML (ATIVAN) VIAL IVP STA (06:41)
[2021-10-30] MEDS ORDERED: NS IV 1000 ML 1,000 ML IV SCH (06:45)
[2021-10-30] MEDS ORDERED: PROMETHAZINE INJ 25 MG/ML (PHENERGAN) AMP IVP ONE (06:45)
[2021-10-30] MEDS ORDERED: diphenhydrAMINE 50 MG/ML INJ (BENADRYL) IVP ONE (06:45)
[2021-10-30 07:17] LABS: BASOPHILS % (AUTO) 0 % (0-10); EOSINOPHILS % (AUTO) 0 % (0-10); HEMATOCRIT 39 % (35-52); HEMOGLOBIN 12.3 g/dL (11.5-16.0); LYMPHOCYTES # (AUTO) 0.8 10^3/uL (1.0-4.0); LYMPHOCYTES % (AUTO) 8 % (12-44); MEAN CORPUSCULAR HEMOGLOBIN 26 pg (25-34); MEAN CORPUSCULAR HGB CONC 32 g/dL (32-36); MEAN CORPUSCULAR VOLUME 82 fL (80-99); MEAN PLATELET VOLUME 10.1 fL (9.0-12.2); MONOCYTES # (AUTO) 0.4 10^3/uL (0.0-1.0); MONOCYTES % (AUTO) 4 % (0-12); NEUTROPHILS # (AUTO) 8.6 10^3/uL (1.8-7.8); NEUTROPHILS % (AUTO) 87 % (42-75); PLATELET COUNT 402 10^3/uL (130-400); WHITE BLOOD COUNT 9.9 10^3/uL (4.3-11.0)
[2021-10-30 07:20] LABS: POTASSIUM 3.8 MMOL/L (3.6-5.0)
[2021-10-30 07:21] LABS: CALCIUM 11.2 MG/DL (8.5-10.1)
[2021-10-30 07:26] LABS: CREATININE SERUM 1.23 MG/DL (0.60-1.30)
[2021-10-30] MEDS ORDERED: ONDA8TAB13 PO (08:34)
[2021-10-30 08:41] LABS: ANISOCYTOSIS SLIGHT; BASOPHILS % (MANUAL) 0 %; EOSINOPHILS % (MANUAL) 0 %; LYMPHOCYTES % (MANUAL) 12 %; MONOCYTES % (MANUAL) 7 %; NEUTROPHILS % (MANUAL) 81 %
[2021-10-30] MEDS ORDERED: LACTATED RINGERS 1,000 ML IV SCH (08:45)
[2021-10-30] MEDS ORDERED: ONDANSETRON 4 MG/2 ML (SDV) Z0FRAN IVP ONE (09:00)
[2021-10-30] MEDS ORDERED: LORazepam INJ 2 MG/ML (ATIVAN) VIAL IVP ONE (09:00)
[2021-10-30 10:06] VITALS: BP 131/74
== END 2021-10-30 10:06 | disposition home or self-care (01) ==
LOC: EDUNIT# 06:13 → ER 06:16
DX: R11.2 Nausea with vomiting, unspecified (principal); R10.84 Generalized abdominal pain; Z87.19 Personal history of other diseases of the digestive system; Z87.448 Personal history of other diseases of urinary system; Z90.49 Acquired absence of other specified parts of digestive tract; Z90.710 Acquired absence of both cervix and uterus; Z90.722 Acquired absence of ovaries, bilateral
CPT/HCPCS: 36415; 80048; 85007; 85027

== ENCOUNTER 2021-12-27 09:12 | Emergency (ER) | payer SELFPAY ==
[~2021-12-27] VITALS: Ht 167.7 cm; Wt 82.1 kg
[2021-12-27] MEDS ORDERED: DICYCLOMINE 10 MG/ML (BENTYL) 2 ML AMP IM STA (09:52)
--- NOTE | 2021-12-27 09:56 | ED Abdominal Pain ---
General Chief Complaint: Abdominal/GI Problems Stated Complaint: N/V Nursing Triage Note: PT AMB TO RM 5 A/O X4. PT STATED THAT SHE STARTED VOMITTING LAST NIGHT AND HAS PAIN "ALL OVER THE STOMACH". PT STATED THAT SHE TOOK ZOFRAN AT 0300 THIS MORNING. Source of Information: Patient Exam Limitations: No Limitations History of Present Illness Date Seen by Provider: Dec 27, 2021 Time Seen by Provider: 09:47 Initial Comments Patient is a 46-year-old female who presents to the emergency department today with a chief complaint of nausea and vomiting onset last night and diffuse abdominal pain. Patient has had multiple prior ER visits for similar complaints. She states that she is still not using marijuana products. No fevers or chills. Last bowel movement was last night, nonblack nonbloody. She has not urinated since last night she states. She took Zofran at 3:00 this morning. She is retching very loudly with greenish bilious emesis in the basin that is watery. No fevers or chills reported. No URI symptoms. She believes the abdominal pain is related to the heaving. All other review of systems reviewed and negative except as stated. Timing/Duration: 12-24 Hours Severity/Quality: Severe, Aching, Cramping Location: Generalized Abdomen Radiation: No Radiation Activities at Onset: None Associated Symptoms: Nausea/Vomiting Allergies and Home Medications Allergies Coded Allergies: morphine (Verified Allergy, Unknown, CAUSES "REBOUND HEADACHES", 12/13/20) PT HAS RECEIVED LORTAB & OXYCODONE IN THE PAST baclofen (Verified Adverse Reaction, Severe, 12/13/20) PATIENT UNAWARE OF REACTION BUT WAS HOSPITALIZED AFTER TAKING MEDICATION AND WAS TOLD IT WAS A REACTION DUE TO THE MEDICATION SHE TOOK. meloxicam (Verified Adverse Reaction, Severe, 12/13/20) PATIENT UNAWARE OF REACTION BUT WAS HOSPITALIZED AFTER TAKING MEDICATION AND WAS TOLD IT WAS A REACTION DUE TO THE MEDICATION SHE TOOK. NSAIDS (Non-Steroidal Anti-Inflamma (Verified Adverse Reaction, Mild, have IBS and avoid NSAIDS, 12/13/20) Patient Home Medication List Home Medication List Reviewed: Yes Famotidine (Famotidine) 20 Mg Tablet, 20 MG PO BID, (Reported) Entered as Reported by: ZAIRA ARCHER on 05/05/21 1450 Metoclopramide HCl (Reglan) 10 Mg Tablet, 10 MG PO BID Prescribed by: FAMILIA ELISE on 05/26/21 1054 Ondansetron (Ondansetron Odt) 8 Mg Tab.rapdis, 8 MG PO Q8H PRN for nausea Prescribed by: ARIELLA WARNER on 10/30/21 0834 Potassium Chloride (Klor-Con M20) 20 Meq Tab.er.prt, 20 MEQ PO DAILY Prescribed by: KRYSTIN RAMOS on 05/08/21 1113 Spironolactone (Spironolactone) 25 Mg Tablet, 50 MG PO BID Prescribed by: KRYSTIN RAMOS on 05/08/21 1113 Tramadol HCl (Tramadol HCl) 50 Mg Tablet, 50 MG PO Q6H PRN for abdominal pain Prescribed by: ARIELLA WARNER on 05/13/21 1304 Review of Systems Review of Systems Constitutional: see HPI EENTM: No Symptoms Reported Respiratory: No Symptoms Reported Cardiovascular: No Symptoms Reported Gastrointestinal: Abdominal Pain, Nausea, Vomiting Genitourinary: Other (decreased) Musculoskeletal: no symptoms reported Skin: no symptoms reported Psychiatric/Neurological: Anxiety All Other Systems Reviewed Negative Unless Noted: Yes Past Pmyuafb-Cckful-Xyfaer Hx Patient Social History Tobacco Use?: No Substance use?: No Alcohol Use?: No Pt feels they are or have been: Unable to obtain Immunizations Up To Date Tetanus Booster (TDap): Unknown PED Vaccines UTD: No Influenza Vaccine Up-to-Date: No; Not Current First/Initial COVID19 Vaccinat: APR Second COVID19 Vaccination Marv: APR Third COVID19 Vaccination Date: APR Seasonal Allergies Seasonal Allergies: No Past Medical History Surgery/Hospitalization HX: TONSILLECTOMY HYSTERECTOMY BILATERAL TUBAL LIGATION CHOLECYSTECTOMY LAPAROSCOPY 09/19/[address] BHATTI FOR INTUSSUCEPTION EGD'S--LAST ONE 01/16/[address] BHATTI--SHOWED GASTRITIS, SMALL HIATAL. 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 Sexually Transmitted Disease: Yes (HPV) HIV/AIDS: No Genitourinary: Yes Bladder Infection Gastrointestinal: Yes (History of cyclic vomiting and cannabis hyperemesis;CHRONIC N/V/ABD PAIN ) Gastroesophageal Reflux, Diverticulosis, Esophagitis, Hiatal Hernia, Gall Bladder Disease Musculoskeletal: Yes Chronic Back Pain Endocrine: No HEENT: Yes (POOR DENTITION) Loss of Vision: Denies Hearing Impairment: Denies Cancer: Yes Uterine Psychosocial: Yes (THC USE) Anxiety, Depression Integumentary: No Blood Disorders: No Adverse Reaction/Blood Tranf: No Family Medical History Diabetes mellitus 19 FATHER FHx: brain tumor 19 MOTHER HPV infection G8 SISTER No Family History of: AIDS Abdominal aortic aneurysm Madi's disease Alcoholism Alzheimer's disease Aphasia Arthritis Asthma Cancer of mouth Cardiovascular disease Cataracts Colon cancer Completed stroke Congenital disease Congenital heart disease Coronary thrombosis Cystic fibrosis Deafness or hearing loss Dementia Drug abuse Dysphasia Fibrocystic disease of breast Gastroenteritis Glaucoma Headache disorder Hypercholesterolemia Hypertension Infertility Kidney disease Myocardial infarction Neoplasm Not obtainable due to adoption Osteoporosis Parkinson's disease Prostate cancer Psychosocial problem Respiratory disorder Seizure disorder Severe allergy Thyroid disease Tuberculosis Visual disorder Heart Disease, Hypertension SOCIAL HISTORY: -SMOKING -ETOH- -DRUGS--CHRONIC MARIJUANA USE PAST SURGICAL HISTORY: -09/20/20--LAPAROSCOPY FOR INTUSSCEPTION BY DR. BHATTI -08/24/20 --EGD/COLONOSCOPY--DX GASTRITIS/ESOPHAGITIS -01/16/21--EGD BY DR. BHATTI--DX GASTRITIS/ESOPHAGITIS/SMALL HIATAL HERNIA -CHOLECYSTECTOMY -BILATERAL TUBAL LIGATION -HYSTERECTOMY/BILATERAL SALPINGO-OOPHORECTOMY 2005 -BLADDER SLING/LATER REMOVED -CARDIAC CATH 2012--NORMAL Physical Exam Vital Signs Vital Signs - First Documented 12/27/21 09:25 Temp 36.8 Pulse 109 Resp 20 B/P (MAP) 150/116 (127) Pulse Ox 98 O2 Delivery Room Air Capillary Refill : Less Than 3 Seconds Height/Weight/BMI Height: 5'6.00" Weight: 203lbs. 6.4oz. 92.389713jw; 29.00 BMI Method:Stated General Appearance: WD/WN, moderate distress HEENT: normal ENT inspection Respiratory: lungs clear, normal breath sounds, no respiratory distress, no accessory muscle use Cardiovascular: regular rate, rhythm Gastrointestinal: normal bowel sounds, tenderness (diffuse tenderness to anteri or abdominal wall. non distended.) Extremities: normal range of motion, normal inspection Neurologic/Psychiatric: alert, other (anxious) Skin: normal color, warm/dry Progress/Results/Core Measures Results/Orders Lab Results Laboratory Tests Test 12/27/21 09:50 12/27/21 10:12 Range/Units White Blood Count 10.3 4.3-11.0 10^3/uL Red Blood Count 5.07 3.80-5.11 10^6/uL Hemoglobin 13.7 11.5-16.0 g/dL Hematocrit 42 35-52 % Mean Corpuscular Volume 84 80-99 fL Mean Corpuscular Hemoglobin 27 25-34 pg Mean Corpuscular Hemoglobin Concent 32 32-36 g/dL Red Cell Distribution Width 17.1 H 10.0-14.5 % Platelet Count 413 H 130-400 10^3/uL Mean Platelet Volume 9.6 9.0-12.2 fL Immature Granulocyte % (Auto) 0 % Neutrophils (%) (Auto) 75 42-75 % Lymphocytes (%) (Auto) 19 12-44 % Monocytes (%) (Auto) 6 0-12 % Eosinophils (%) (Auto) 0 0-10 % Basophils (%) (Auto) 1 0-10 % Neutrophils # (Auto) 7.7 1.8-7.8 10^3/uL Lymphocytes # (Auto) 1.9 1.0-4.0 10^3/uL Monocytes # (Auto) 0.6 0.0-1.0 10^3/uL Eosinophils # (Auto) 0.0 0.0-0.3 10^3/uL Basophils # (Auto) 0.1 0.0-0.1 10^3/uL Immature Granulocyte # (Auto) 0.0 0.0-0.1 10^3/uL Sodium Level 141 135-145 MMOL/L Potassium Level 4.1 3.6-5.0 MMOL/L Chloride Level 102 98-107 MMOL/L Carbon Dioxide Level 19 L 21-32 MMOL/L Anion Gap 20 H 5-14 MMOL/L Blood Urea Nitrogen 19 H 7-18 MG/DL Creatinine 1.49 H 0.60-1.30 MG/DL Estimat Glomerular Filtration Rate 44 BUN/Creatinine Ratio 13 Glucose Level 151 H 70-105 MG/DL Calcium Level 11.4 H 8.5-10.1 MG/DL Corrected Calcium 8.5-10.1 MG/DL Total Bilirubin 0.5 0.1-1.0 MG/DL Aspartate Amino Transf (AST/SGOT) 35 H 5-34 U/L Alanine Aminotransferase (ALT/SGPT) 43 0-55 U/L Alkaline Phosphatase 95 40-136 U/L Total Protein 9.3 H 6.4-8.2 GM/DL Albumin 5.4 H 3.2-4.5 GM/DL Lipase 57 8-78 U/L Urine Color YELLOW Urine Clarity CLEAR Urine pH 5.5 5-9 Urine Specific [place] >=1.030 1.016-1.022 Urine Protein 1+ H NEGATIVE Urine Glucose (UA) 1+ H NEGATIVE Urine Ketones TRACE H NEGATIVE Urine Nitrite NEGATIVE NEGATIVE Urine Bilirubin NEGATIVE NEGATIVE Urine Urobilinogen 0.2 < = 1.0 MG/DL Urine Leukocyte Esterase NEGATIVE NEGATIVE Urine RBC (Auto) TRACE-I H NEGATIVE Urine RBC NONE /HPF Urine WBC NONE /HPF Urine Squamous Epithelial Cells 2-5 /HPF Urine Crystals PRESENT H /LPF Urine Amorphous Sediment LARGE TETE URATES H /LPF Urine Bacteria NEGATIVE /HPF Urine Casts PRESENT /LPF Urine Hyaline Casts 0-2 H /LPF Urine Mucus LARGE H /LPF Urine Culture Indicated NO My Orders Orders - ARIELLA WARNER MD Ed Iv/Invasive Line Start (12/27/21 09:52) Cbc With Automated Diff (12/27/21 09:52) Comprehensive Metabolic Panel (12/27/21 09:52) Lipase (12/27/21 09:52) Ua Culture If Indicated (12/27/21 09:52) Ns Iv 1000 Ml (Sodium Chloride 0.9%) (12/27/21 10:00) Pantoprazole Injection (Protonix Injecti (12/27/21 10:00) Diphenhydramine Injection (Benadryl Inje (12/27/21 10:00) Dicyclomine Injection (Bentyl Injection) (12/27/21 09:52) Fentanyl Inj (Sublimaze Injection) (12/27/21 10:00) Tramadol Tablet (Ultram Tablet) (12/27/21 11:30) Medications Given in ED Current Medications Medications Dose Ordered Sig/Judi Route Start Time Stop Time Status Last Admin Dose Admin Diphenhydramine HCl 25 mg ONCE ONCE IVP 12/27/21 10:00 12/27/21 10:01 DC 12/27/21 10:21 25 MG Fentanyl Citrate 25 mcg ONCE ONCE IVP 12/27/21 10:00 12/27/21 10:01 DC 12/27/21 10:23 25 MCG Pantoprazole 40 mg ONCE ONCE IV 12/27/21 10:00 12/27/21 10:01 DC 12/27/21 10:31 40 MG Vital Signs/I&O 12/27/21 09:25 Temp 36.8 Pulse 109 Resp 20 B/P (MAP) 150/116 (127) Pulse Ox 98 O2 Delivery Room Air Blood Pressure Mean: 127 Progress Progress Note : Time: 11:16 Progress Note She still has some pain but nausea is better. Will give her a tramadol here and 6 tablets for home. Labs reviewed - slightly increased creat but given 2 liters of fluids here. Will have her follow up with [facility] and [facility]AT[facility]. REturn precautions provided. Departure Impression Primary Impression: Nausea and vomiting Qualified Codes: R11.14 - Bilious vomiting Additional Impression: Abdominal wall pain Disposition: HOME, SELF-CARE Condition: Improved Departure-Patient Inst. Decision time for Depature: 11:18 Referrals: [facility]/ (PCP) Primary Care Physician AUDREY ELIZABETH (Family) Primary Care Physician PENNY ALMAZAN DO Patient Instructions: Nausea and Vomiting, Adult ED Add. Discharge Instructions: Sips of clear liquids throughout the afternoon today. You can slowly advance your diet in 6 to 12 hours as tolerated. Tramadol 1 every 6-8 hours as needed for pain. Continue Zofran for nausea and vomiting. See if you can get a sooner appointment with PSYCHIATRIC. Return to the emergency department for any new, concerning or emergent complaints. Scripts Tramadol HCl (Tramadol HCl) 50 Mg Tablet 50 MG PO Q6H PRN for PAIN, #6 TAB 0 Refills Prov: ARIELLA WARNER MD 12/27/21 Copy Copies To 1: ANNE BYRD DO Copies To 2: PENNY ALMAZAN DO ARIELLA WARNER MD Dec 27, 2021 09:56
[2021-12-27] MEDS ORDERED: PANTOPRAZOLE 40 MG (PROTONIX) VIAL IV ONE (10:00)
[2021-12-27] MEDS ORDERED: diphenhydrAMINE 50 MG/ML INJ (BENADRYL) IVP ONE (10:00)
[2021-12-27] MEDS ORDERED: fentaNYL INJ 100 MCG/2 ML AMP IVP ONE (10:00)
[2021-12-27 10:01] LABS: BASOPHILS # (AUTO) 0.1 10^3/uL (0.0-0.1); BASOPHILS % (AUTO) 1 % (0-10); EOSINOPHILS % (AUTO) 0 % (0-10); HEMATOCRIT 42 % (35-52); HEMOGLOBIN 13.7 g/dL (11.5-16.0); LYMPHOCYTES # (AUTO) 1.9 10^3/uL (1.0-4.0); LYMPHOCYTES % (AUTO) 19 % (12-44); MEAN CORPUSCULAR HEMOGLOBIN 27 pg (25-34); MEAN CORPUSCULAR HGB CONC 32 g/dL (32-36); MEAN CORPUSCULAR VOLUME 84 fL (80-99); MEAN PLATELET VOLUME 9.6 fL (9.0-12.2); MONOCYTES # (AUTO) 0.6 10^3/uL (0.0-1.0); MONOCYTES % (AUTO) 6 % (0-12); NEUTROPHILS # (AUTO) 7.7 10^3/uL (1.8-7.8); NEUTROPHILS % (AUTO) 75 % (42-75); PLATELET COUNT 413 10^3/uL (130-400); WHITE BLOOD COUNT 10.3 10^3/uL (4.3-11.0)
[2021-12-27] MEDS: NS IV 1000 ML 1,000 ML IV SCH ×2 (10:17→11:14)
[2021-12-27 10:20] LABS: BILIRUBIN,URINE NEGATIVE (NEGATIVE); CLARITY,URINE CLEAR; COLOR,URINE YELLOW; GLUCOSE, URINE (UA) 1+ (NEGATIVE); KETONES,URINE TRACE (NEGATIVE); LEUKOCYTE ESTERASE ,URINE NEGATIVE (NEGATIVE); NITRITE,URINE NEGATIVE (NEGATIVE); PH,URINE 5.5 (5-9); PROTEIN,URINE 1+ (NEGATIVE)
[2021-12-27 10:35] LABS: ALBUMIN 5.4 GM/DL (3.2-4.5); CHLORIDE 102 MMOL/L (98-107); POTASSIUM 4.1 MMOL/L (3.6-5.0); SODIUM 141 MMOL/L (135-145)
[2021-12-27 10:37] LABS: CALCIUM 11.4 MG/DL (8.5-10.1)
[2021-12-27 10:38] LABS: GLUCOSE 151 MG/DL (70-105); TOTAL PROTEIN 9.3 GM/DL (6.4-8.2)
[2021-12-27 10:39] LABS: CARBON DIOXIDE 19 MMOL/L (21-32)
[2021-12-27 10:40] LABS: BILIRUBIN,TOTAL 0.5 MG/DL (0.1-1.0)
[2021-12-27 10:41] LABS: ALKALINE PHOSPHATASE 95 U/L (40-136); CREATININE SERUM 1.49 MG/DL (0.60-1.30); GFR ESTIMATED 44
[2021-12-27 10:42] LABS: BUN/CREATININE RATIO 13
[2021-12-27 10:44] LABS: ALANINE AMINOTRANSFERASE 43 U/L (0-55)
[2021-12-27 10:44] LABS: AMORPHOUS SEDIMENT,UR LARGE AMOR URATES /LPF; BACTERIA,URINE NEGATIVE /HPF; HYALINE CASTS, URINE 0-2 /LPF
[2021-12-27 10:45] LABS: LIPASE 57 U/L (8-78)
[2021-12-27] MEDS ORDERED: TRM50T PO (11:20)
[2021-12-27 12:05] VITALS: BP 129/101
== END 2021-12-27 12:05 | disposition home or self-care (01) ==
LOC: EDUNIT# 09:12 → ER 09:13
DX: R11.2 Nausea with vomiting, unspecified (principal); R10.84 Generalized abdominal pain; Z90.49 Acquired absence of other specified parts of digestive tract; Z90.710 Acquired absence of both cervix and uterus; Z90.722 Acquired absence of ovaries, bilateral; Z28.311 Partially vaccinated for COVID-19
CPT/HCPCS: 36415; 80053; 81000; 83690; 85025

== ENCOUNTER 2021-12-29 07:41 | Emergency (ER) | payer SELFPAY ==
[~2021-12-29] VITALS: Ht 167 cm; Wt 82.0 kg
--- NOTE | 2021-12-29 08:35 | ED Abdominal Pain ---
General Chief Complaint: Abdominal/GI Problems Stated Complaint: ABD PAIN - VOMITING Nursing Triage Note: pt. sent from [facility] for n/v and abd pain for past 3 days. recently seen here in ED. here for ruiz and yumiko Source of Information: Patient Exam Limitations: No Limitations History of Present Illness Date Seen by Provider: Dec 29, 2021 Time Seen by Provider: 08:15 Initial Comments Patient is a 46-year-old female history of chronic abdominal pain multiple ER visits who presents 48 hours after her last ER visit with worsening pain. Patient states she has not been able to eat since Saturday afternoon, 4 days ago. She has had significant nausea and vomiting. She I have given her tramadol 8 tablets on Saturday. She states she is taken for and they are not touching her pain. She has had previous cholecystectomy, bladder sling and takedown, still has her appendix. She states she was told this morning she has a fever. She denies cough, shortness of breath, chest pain. No URI symptoms. She states her bowel movements are "hard" her last one was yesterday. She denies dysuria, urgency or frequency. No abnormal vaginal discharge. Continues to states she is not using THC Tearful and upset rocking back and forth sitting up in the bed on my initial entry into the room. Abdominal exam reveals a soft nondistended belly with hyperactive bowel sounds, diffuse tenderness. Equivocal rebound. Plan to place an IV redraw labs address her nausea vomiting and pain. We will review the medical record to see when her last CAT scan was. Timing/Duration: 3-4 Days Severity/Quality: Severe, Aching Location: Generalized Abdomen Radiation: No Radiation Activities at Onset: None Modifying Factors: Improves With Vomiting, Improves With Other ("everything hurts"; "hard BM yesterday") Associated Symptoms: Nausea/Vomiting Allergies and Home Medications Allergies Coded Allergies: morphine (Verified Allergy, Unknown, CAUSES "REBOUND HEADACHES", 12/13/20) PT HAS RECEIVED LORTAB & OXYCODONE IN THE PAST baclofen (Verified Adverse Reaction, Severe, 12/13/20) PATIENT UNAWARE OF REACTION BUT WAS HOSPITALIZED AFTER TAKING MEDICATION AND WAS TOLD IT WAS A REACTION DUE TO THE MEDICATION SHE TOOK. meloxicam (Verified Adverse Reaction, Severe, 12/13/20) PATIENT UNAWARE OF REACTION BUT WAS HOSPITALIZED AFTER TAKING MEDICATION AND WAS TOLD IT WAS A REACTION DUE TO THE MEDICATION SHE TOOK. NSAIDS (Non-Steroidal Anti-Inflamma (Verified Adverse Reaction, Mild, have IBS and avoid NSAIDS, 12/13/20) Patient Home Medication List Home Medication List Reviewed: Yes Famotidine (Famotidine) 20 Mg Tablet, 20 MG PO BID, (Reported) Entered as Reported by: ZAIRA ARCHER on 05/05/21 1450 Metoclopramide HCl (Reglan) 10 Mg Tablet, 10 MG PO BID Prescribed by: FAMILIA ELISE on 05/26/21 1054 Ondansetron (Ondansetron Odt) 8 Mg Tab.rapdis, 8 MG PO Q8H PRN for nausea Prescribed by: ARIELLA WARNER on 10/30/21 0834 Potassium Chloride (Klor-Con M20) 20 Meq Tab.er.prt, 20 MEQ PO DAILY Prescribed by: KRYSTIN RAMOS on 05/08/21 1113 Spironolactone (Spironolactone) 25 Mg Tablet, 50 MG PO BID Prescribed by: KRYSTIN RAMOS on 05/08/21 1113 Tramadol HCl (Tramadol HCl) 50 Mg Tablet, 50 MG PO Q6H PRN for abdominal pain Prescribed by: ARIELLA WARNER on 05/13/21 1304 Tramadol HCl (Tramadol HCl) 50 Mg Tablet, 50 MG PO Q6H PRN for PAIN Prescribed by: ARIELLA WARNER on 12/27/21 1120 Review of Systems Review of Systems Constitutional: see HPI EENTM: No Symptoms Reported Respiratory: No Symptoms Reported Cardiovascular: No Symptoms Reported Gastrointestinal: Abdominal Pain; Denies Blood Streaked Stools; Constipated, Nausea; Denies Rectal Bleeding; Vomiting Genitourinary: No Symptoms Reported Musculoskeletal: no symptoms reported Skin: no symptoms reported Psychiatric/Neurological: Anxiety All Other Systems Reviewed Negative Unless Noted: Yes Past Hmksdog-[id number]-[id number] Hx Immunizations Up To Date Tetanus Booster (TDap): Unknown PED Vaccines UTD: No Influenza Vaccine Up-to-Date: No; Not Current First/Initial COVID19 Vaccinat: APR Second COVID19 Vaccination Marv: APR Third COVID19 Vaccination Date: APR Seasonal Allergies Seasonal Allergies: No Past Medical History Surgery/Hospitalization HX: TONSILLECTOMY HYSTERECTOMY BILATERAL TUBAL LIGATION CHOLECYSTECTOMY LAPAROSCOPY 09/19/[address] BHATTI FOR INTUSSUCEPTION EGD'S--LAST ONE 01/16/[address] BHATTI--SHOWED GASTRITIS, SMALL HIATAL. 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 Sexually Transmitted Disease: Yes (HPV) HIV/AIDS: No Genitourinary: Yes Bladder Infection Gastrointestinal: Yes (History of cyclic vomiting and cannabis hyperemesis;CHRONIC N/V/ABD PAIN ) Gastroesophageal Reflux, Diverticulosis, Esophagitis, Hiatal Hernia, Gall Bladder Disease Musculoskeletal: Yes Chronic Back Pain Endocrine: No HEENT: Yes (POOR DENTITION) Loss of Vision: Denies Hearing Impairment: Denies Cancer: Yes Uterine Psychosocial: Yes (THC USE) Anxiety, Depression Integumentary: No Blood Disorders: No Adverse Reaction/Blood Tranf: No Family Medical History Diabetes mellitus 19 FATHER FHx: brain tumor 19 MOTHER HPV infection G8 SISTER No Family History of: AIDS Abdominal aortic aneurysm Madi's disease Alcoholism Alzheimer's disease Aphasia Arthritis Asthma Cancer of mouth Cardiovascular disease Cataracts Colon cancer Completed stroke Congenital disease Congenital heart disease Coronary thrombosis Cystic fibrosis Deafness or hearing loss Dementia Drug abuse Dysphasia Fibrocystic disease of breast Gastroenteritis Glaucoma Headache disorder Hypercholesterolemia Hypertension Infertility Kidney disease Myocardial infarction Neoplasm Not obtainable due to adoption Osteoporosis Parkinson's disease Prostate cancer Psychosocial problem Respiratory disorder Seizure disorder Severe allergy Thyroid disease Tuberculosis Visual disorder Heart Disease, Hypertension SOCIAL HISTORY: -SMOKING -ETOH- -DRUGS--CHRONIC MARIJUANA USE PAST SURGICAL HISTORY: -09/20/20--LAPAROSCOPY FOR INTUSSCEPTION BY DR. BHATTI -08/24/20 --EGD/COLONOSCOPY--DX GASTRITIS/ESOPHAGITIS -01/16/21--EGD BY DR. BHATTI--DX GASTRITIS/ESOPHAGITIS/SMALL HIATAL HERNIA -CHOLECYSTECTOMY -BILATERAL TUBAL LIGATION -HYSTERECTOMY/BILATERAL SALPINGO-OOPHORECTOMY 2005 -BLADDER SLING/LATER REMOVED -CARDIAC CATH 2012--NORMAL Physical Exam Vital Signs Vital Signs - First Documented 12/29/21 12/29/21 07:47 11:14 Temp 36.4 Pulse 112 Resp 18 B/P (MAP) 137/85 Pulse Ox 96 O2 Delivery Room Air Capillary Refill : Less Than 3 Seconds Height/Weight/BMI Height: 5'6.00" Weight: 203lbs. 6.4oz. 92.324258dk; 29.00 BMI Method:Stated General Appearance: WD/WN, moderate distress (tearful and upset) HEENT: PERRL/EOMI Respiratory: lungs clear, normal breath sounds, no respiratory distress, no accessory muscle use Cardiovascular: regular rate, rhythm, tachycardia (110) Gastrointestinal: soft, no pulsatile mass, abnormal bowel sounds (hyperactive), tenderness (diffuse) Extremities: normal range of motion, normal inspection, normal capillary refill Neurologic/Psychiatric: regional recruiter II-XII nml as tested, no motor/sensory deficits, alert, oriented x 3, other (anxious) Skin: normal color, warm/dry Progress/Results/Core Measures Results/Orders Lab Results Laboratory Tests Test 12/29/21 09:10 Range/Units White Blood Count 10.6 4.3-11.0 10^3/uL Red Blood Count 4.51 3.80-5.11 10^6/uL Hemoglobin 12.4 11.5-16.0 g/dL Hematocrit 38 35-52 % Mean Corpuscular Volume 85 80-99 fL Mean Corpuscular Hemoglobin 28 25-34 pg Mean Corpuscular Hemoglobin Concent 33 32-36 g/dL Red Cell Distribution Width 17.1 H 10.0-14.5 % Platelet Count 335 130-400 10^3/uL Mean Platelet Volume 9.4 9.0-12.2 fL Immature Granulocyte % (Auto) 0 % Neutrophils (%) (Auto) 78 H 42-75 % Lymphocytes (%) (Auto) 14 12-44 % Monocytes (%) (Auto) 7 0-12 % Eosinophils (%) (Auto) 0 0-10 % Basophils (%) (Auto) 0 0-10 % Neutrophils # (Auto) 8.3 H 1.8-7.8 10^3/uL Lymphocytes # (Auto) 1.5 1.0-4.0 10^3/uL Monocytes # (Auto) 0.8 0.0-1.0 10^3/uL Eosinophils # (Auto) 0.0 0.0-0.3 10^3/uL Basophils # (Auto) 0.0 0.0-0.1 10^3/uL Immature Granulocyte # (Auto) 0.0 0.0-0.1 10^3/uL Sodium Level 142 135-145 MMOL/L Potassium Level 3.3 L 3.6-5.0 MMOL/L Chloride Level 101 98-107 MMOL/L Carbon Dioxide Level 23 21-32 MMOL/L Anion Gap 18 H 5-14 MMOL/L Blood Urea Nitrogen 22 H 7-18 MG/DL Creatinine 1.14 0.60-1.30 MG/DL Estimat Glomerular Filtration Rate 61 BUN/Creatinine Ratio 19 Glucose Level 114 H 70-105 MG/DL Calcium Level 10.5 H 8.5-10.1 MG/DL C-Reactive Protein High Sensitivity 0.28 0.00-0.50 MG/DL My Orders Orders - ARIELLA WARNER MD Ed Iv/Invasive Line Start (12/29/21 08:35) Ekg Tracing (12/29/21 08:35) Cbc With Automated Diff (12/29/21 08:35) Basic Metabolic Panel (12/29/21 08:35) Hs C Reactive Protein (12/29/21 08:35) Ns Iv 1000 Ml (Sodium Chloride 0.9%) (12/29/21 08:45) Diphenhydramine Injection (Benadryl Inje (12/29/21 08:45) Fentanyl Inj (Sublimaze Injection) (12/29/21 10:00) Droperidol Inj (Ed Only) (Inapsine Inj ( (12/29/21 10:00) Diphenhydramine Injection (Benadryl Inje (12/29/21 10:00) Medications Given in ED Current Medications Medications Dose Ordered Sig/Judi Route Start Time Stop Time Status Last Admin Dose Admin Diphenhydramine HCl 25 mg ONCE ONCE IVP 12/29/21 08:45 12/29/21 08:46 DC 12/29/21 09:22 25 MG Diphenhydramine HCl 25 mg ONCE ONCE IVP 12/29/21 10:00 12/29/21 10:01 DC 12/29/21 11:18 25 MG Droperidol 2.5 mg ONCE ONCE IV 12/29/21 10:00 12/29/21 10:01 DC 12/29/21 11:19 2.5 MG Fentanyl Citrate 25 mcg ONCE ONCE IVP 12/29/21 10:00 12/29/21 10:01 DC 12/29/21 11:20 25 MCG Vital Signs/I&O 12/29/21 12/29/21 12/29/21 07:47 11:14 11:36 Temp 36.4 36.0 36.0 Pulse 112 79 79 Resp 18 18 B/P (MAP) 137/85 137/85 Pulse Ox 96 96 O2 Delivery Room Air Room Air Progress Progress Note : Time: 10:09 Progress Note Patient is treated in the emergency department with multiple rounds of IV fluids and antiemetics. Her vital signs remained stable. Her abdominal exam is benign. No concerns for acute surgical abdomen. White count is normal. Chemistry is normal. She is afebrile. I believe this is another acute exacerbation of her chronic abdominal pain. I spoke with her at length about getting a referral to /[facility] for further evaluation by GI specialist. She needs to follow-up with her primary care doctor as well for pain management. No clinical or objective findings to warrant further studies from the emergency department. All questions are sought and answered. Initial ECG Impression Date: Dec 29, 2021 Initial ECG Impression Time: 09:03 Initial ECG Rate: 125 Initial ECG Rhythm: S.Tach Initial ECG Intervals DC interval 125 QRS 95 QTC 439 Comment No ectopy is noted, nonspecific ST-T wave changes. No ST segment elevation or depression. Left anterior fascicular block Departure Impression Primary Impression: Chronic generalized abdominal pain Additional Impression: Nausea and vomiting Qualified Codes: R11.2 - Nausea with vomiting, unspecified Disposition: 01 HOME, SELF-CARE Condition: Improved Departure-Patient Inst. Decision time for Depature: 10:07 Referrals: [facility]SY (PCP) Primary Care Physician AUDREY ELIZABETH (Family) Primary Care Physician Patient Instructions: Nausea and Vomiting, Adult ED Add. Discharge Instructions: Sips of clear liquids throughout the day today. You can advance your diet as tolerated tomorrow. Continue your home medications for nausea, vomiting and pain. You need to speak with your primary care doctor about further pain management. I cannot provide you with further pain pills. You also need to speak with your primary care doctor about a referral to to vegetable cook. Return to the emergency room for fever, new, emergent concerns. ARIELLA WARNER MD Dec 29, 2021 08:35
[2021-12-29] MEDS ORDERED: NS IV 1000 ML 1,000 ML IV SCH (08:45)
[2021-12-29] MEDS ORDERED: diphenhydrAMINE 50 MG/ML INJ (BENADRYL) IVP ONE ×2 (08:45→10:00)
[2021-12-29 09:23] LABS: BASOPHILS % (AUTO) 0 % (0-10); EOSINOPHILS % (AUTO) 0 % (0-10); HEMATOCRIT 38 % (35-52); HEMOGLOBIN 12.4 g/dL (11.5-16.0); LYMPHOCYTES # (AUTO) 1.5 10^3/uL (1.0-4.0); LYMPHOCYTES % (AUTO) 14 % (12-44); MEAN CORPUSCULAR HEMOGLOBIN 28 pg (25-34); MEAN CORPUSCULAR HGB CONC 33 g/dL (32-36); MEAN CORPUSCULAR VOLUME 85 fL (80-99); MEAN PLATELET VOLUME 9.4 fL (9.0-12.2); MONOCYTES # (AUTO) 0.8 10^3/uL (0.0-1.0); MONOCYTES % (AUTO) 7 % (0-12); NEUTROPHILS # (AUTO) 8.3 10^3/uL (1.8-7.8); NEUTROPHILS % (AUTO) 78 % (42-75); PLATELET COUNT 335 10^3/uL (130-400); WHITE BLOOD COUNT 10.6 10^3/uL (4.3-11.0)
[2021-12-29 09:46] LABS: POTASSIUM 3.3 MMOL/L (3.6-5.0)
[2021-12-29 09:47] LABS: CALCIUM 10.5 MG/DL (8.5-10.1)
[2021-12-29 09:52] LABS: CREATININE SERUM 1.14 MG/DL (0.60-1.30)
[2021-12-29] MEDS ORDERED: DROPERIDOL 5 MG/2 ML (INAPSINE) ED ONLY! IV ONE (10:00)
[2021-12-29] MEDS ORDERED: fentaNYL INJ 100 MCG/2 ML AMP IVP ONE (10:00)
[2021-12-29 11:36] VITALS: BP 137/85
== END 2021-12-29 11:36 | disposition home or self-care (01) ==
LOC: EDUNIT# 07:41 → ER 07:42
DX: G89.29 Other chronic pain (principal); R10.84 Generalized abdominal pain; R11.2 Nausea with vomiting, unspecified; Z90.49 Acquired absence of other specified parts of digestive tract; Z88.5 Allergy status to narcotic agent
CPT/HCPCS: 36415; 80048; 85025; 86141; 93005

== ENCOUNTER 2022-09-07 18:49 | Emergency (ER) | payer SELFPAY ==
[~2022-09-07 18:49] MED LIST changes: +POTA-177 PO; -POTA10CA43 PO; +POTA10CA44 PO; -POTA10TA37 PO
[2022-09-07 19:21] LABS: BILIRUBIN,URINE NEGATIVE (NEGATIVE); CLARITY,URINE CLEAR; COLOR,URINE YELLOW; GLUCOSE, URINE (UA) NEGATIVE (NEGATIVE); KETONES,URINE NEGATIVE (NEGATIVE); LEUKOCYTE ESTERASE ,URINE 1+ (NEGATIVE); NITRITE,URINE NEGATIVE (NEGATIVE); PROTEIN,URINE NEGATIVE (NEGATIVE)
--- NOTE | 2022-09-07 19:27 | ED Abdominal Pain ---
General Chief Complaint: Abdominal/GI Problems Stated Complaint: ABDOMINAL PAIN Nursing Triage Note: PT AMB TO [facility] WITH C/O RLQ PAIN STARTING ABOUT AN HOUR AGO. PT IS WORRIED THAT SOMETHING IS WRONG WITH HER APPENDIX. PT SAID SHE TOOK A BENTYL 30 MIN AGO Source of Information: Patient Exam Limitations: No Limitations History of Present Illness Date Seen by Provider: Sep 07, 2022 Time Seen by Provider: 18:52 Initial Comments 46-year-old female presents to the ED with complaints of right lower quadrant abdominal cramping for the last 2 hours. She states she took Bentyl 45 minutes ago which did not provide relief. Denies fevers, chest pain, shortness of air, nausea, vomiting, diarrhea, dysuria, urgency. She states she last had a bowel movement yesterday. Reports that she has problems with constipation, states th at her bowel movement yesterday was softer than usual. She reports as though she feels like she urinates frequently. She has a long history of abdominal issues, but states that after she stopped using marijuana and alcohol she has not had a lot of issues. Medical history includes borderline diabetes, and hypertension, and elevated liver enzymes. She currently takes metformin, B entyl, tizanidine, amlodipine, and uses an inhaler. Allergies and Home Medications Allergies Coded Allergies: morphine (Verified Allergy, Unknown, CAUSES "REBOUND HEADACHES", 12/13/20) PT HAS RECEIVED LORTAB & OXYCODONE IN THE PAST baclofen (Verified Adverse Reaction, Severe, 12/13/20) PATIENT UNAWARE OF REACTION BUT WAS HOSPITALIZED AFTER TAKING MEDICATION AND WAS TOLD IT WAS A REACTION DUE TO THE MEDICATION SHE TOOK. meloxicam (Verified Adverse Reaction, Severe, 12/13/20) PATIENT UNAWARE OF REACTION BUT WAS HOSPITALIZED AFTER TAKING MEDICATION AND WAS TOLD IT WAS A REACTION DUE TO THE MEDICATION SHE TOOK. NSAIDS (Non-Steroidal Anti-Inflamma (Verified Adverse Reaction, Mild, have IBS and avoid NSAIDS, 12/13/20) Patient Home Medication List Home Medication List Reviewed: Yes Famotidine (Famotidine) 20 Mg Tablet, 20 MG PO BID, (Reported) Entered as Reported by: ZAIRA ARCHER on 05/05/21 1450 Metoclopramide HCl (Reglan) 10 Mg Tablet, 10 MG PO BID Prescribed by: FAMILIA ELISE on 05/26/21 1054 Nitrofurantoin Monohyd/M-Cryst (Nitrofurantoin Tunica-Mcr 100 mg) 100 Mg Capsule, 100 MG PO BID Prescribed by: Shira Hu on 09/07/222032 Ondansetron (Ondansetron Odt) 8 Mg Tab.rapdis, 8 MG PO Q8H PRN for nausea Prescribed by: ARIELLA WARNER on 10/30/21 0834 Potassium Chloride (Klor-Con M20) 20 Meq Tab.er.prt, 20 MEQ PO DAILY Prescribed by: KRYSTIN RAMOS on 05/08/21 1113 Spironolactone (Spironolactone) 25 Mg Tablet, 50 MG PO BID Prescribed by: KRYSTIN RAMOS on 05/08/21 1113 Tramadol HCl (Tramadol HCl) 50 Mg Tablet, 50 MG PO Q6H PRN for abdominal pain Prescribed by: ARIELLA WARNER on 05/13/21 1304 Tramadol HCl (Tramadol HCl) 50 Mg Tablet, 50 MG PO Q6H PRN for PAIN Prescribed by: ARIELLA WARNER on 12/27/21 1120 Review of Systems Review of Systems Constitutional: see HPI Past Cdfanvc-Bkulzv-Lblqux Hx Patient Social History Tobacco Use?: No Substance use?: No Alcohol Use?: No Pt feels they are or have been: No Immunizations Up To Date Tetanus Booster (TDap): Unknown PED Vaccines UTD: No Influenza Vaccine Up-to-Date: No; Not Current First/Initial COVID19 Vaccinat: APR Second COVID19 Vaccination Marv: APR Third COVID19 Vaccination Date: APR Seasonal Allergies Seasonal Allergies: No Past Medical History Surgery/Hospitalization HX: TONSILLECTOMY HYSTERECTOMY BILATERAL TUBAL LIGATION CHOLECYSTECTOMY LAPAROSCOPY 09/19/[address] BHATTI FOR INTUSSUCEPTION EGD'S--LAST ONE 01/16/[address] BHATTI--SHOWED GASTRITIS, SMALL HIATAL. 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 [employer] History: 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 Sexually Transmitted Disease: Yes (HPV) HIV/AIDS: No Genitourinary: Yes Bladder Infection Gastrointestinal: Yes (History of cyclic vomiting and cannabis hyperemesis;CHRONIC N/V/ABD PAIN ) Gastroesophageal Reflux, Diverticulosis, Esophagitis, Hiatal Hernia, Gall Bladder Disease Musculoskeletal: Yes Chronic Back Pain Endocrine: No HEENT: Yes (POOR DENTITION) Loss of Vision: Denies Hearing Impairment: Denies Cancer: Yes Uterine Psychosocial: Yes (THC USE) Anxiety, Depression Integumentary: No Blood Disorders: No Adverse Reaction/Blood Tranf: No Family Medical History Diabetes mellitus 19 FATHER FHx: brain tumor 19 MOTHER HPV infection G8 SISTER No Family History of: AIDS Abdominal aortic aneurysm Garland's disease Alcoholism Alzheimer's disease Aphasia Arthritis Asthma Cancer of mouth Cardiovascular disease Cataracts Colon cancer Completed stroke Congenital disease Congenital heart disease Coronary thrombosis Cystic fibrosis Deafness or hearing loss Dementia Drug abuse Dysphasia Fibrocystic disease of breast Gastroenteritis Glaucoma Headache disorder Hypercholesterolemia Hypertension Infertility Kidney disease Myocardial infarction Neoplasm Not obtainable due to adoption Osteoporosis Parkinson's disease Prostate cancer Psychosocial problem Respiratory disorder Seizure disorder Severe allergy Thyroid disease Tuberculosis Visual disorder Heart Disease, Hypertension SOCIAL HISTORY: -SMOKING -ETOH- -DRUGS--CHRONIC MARIJUANA USE PAST SURGICAL HISTORY: -09/20/20--LAPAROSCOPY FOR INTUSSCEPTION BY DR. BHATTI -08/24/20 --EGD/COLONOSCOPY--DX GASTRITIS/ESOPHAGITIS -01/16/21--EGD BY DR. BHATTI--DX GASTRITIS/ESOPHAGITIS/SMALL HIATAL HERNIA -CHOLECYSTECTOMY -BILATERAL TUBAL LIGATION -HYSTERECTOMY/BILATERAL SALPINGO-OOPHORECTOMY 2005 -BLADDER SLING/LATER REMOVED -CARDIAC CATH 2012--NORMAL Physical Exam Vital Signs Vital Signs - First Documented 09/07/22 19:04 Temp 37.0 Pulse 79 Resp 18 B/P (MAP) 97/69 (78) Capillary Refill : Height/Weight/BMI Height: 5'6.00" Weight: 203lbs. 6.4oz. 92.526840at; 29.00 BMI Method:Stated General Appearance: WD/WN, no apparent distress Neck: supple, normal inspection Respiratory: lungs clear, normal breath sounds, no respiratory distress, no accessory muscle use Cardiovascular: regular rate, rhythm, no edema, no gallop, no JVD, no murmur Gastrointestinal: normal bowel sounds, soft, rebound, tenderness (Right lower quadrant) Extremities: normal range of motion, normal inspection Neurologic/Psychiatric: alert, oriented x 3 Skin: normal color, warm/dry Progress/Results/Core Measures Results/Orders Lab Results Laboratory Tests Test 09/07/22 19:10 09/07/22 19:33 Range/Units Urine Color YELLOW Urine Clarity CLEAR Urine pH 6.0 5-9 Urine Specific [place] >=1.030 1.016-1.022 Urine Protein NEGATIVE NEGATIVE Urine Glucose (UA) NEGATIVE NEGATIVE Urine Ketones NEGATIVE NEGATIVE Urine Nitrite NEGATIVE NEGATIVE Urine Bilirubin NEGATIVE NEGATIVE Urine Urobilinogen 0.2 < = 1.0 MG/DL Urine Leukocyte Esterase 1+ H NEGATIVE Urine RBC (Auto) TRACE-I H NEGATIVE Urine RBC 0-2 /HPF Urine WBC 25-50 H /HPF Urine Squamous Epithelial Cells 25-50 H /HPF Urine Crystals NONE /LPF Urine Bacteria MODERATE H /HPF Urine Casts PRESENT /LPF Urine Hyaline Casts 5-10 H /LPF Urine Mucus SMALL H /LPF Urine Culture Indicated YES White Blood Count 7.0 4.3-11.0 10^3/uL Red Blood Count 4.15 3.80-5.11 10^6/uL Hemoglobin 10.7 L 11.5-16.0 g/dL Hematocrit 34 L 35-52 % Mean Corpuscular Volume 81 80-99 fL Mean Corpuscular Hemoglobin 26 25-34 pg Mean Corpuscular Hemoglobin Concent 32 32-36 g/dL Red Cell Distribution Width 15.8 H 10.0-14.5 % Platelet Count 285 130-400 10^3/uL Mean Platelet Volume 9.2 9.0-12.2 fL Immature Granulocyte % (Auto) 0 % Neutrophils (%) (Auto) 56 42-75 % Lymphocytes (%) (Auto) 33 12-44 % Monocytes (%) (Auto) 9 0-12 % Eosinophils (%) (Auto) 2 0-10 % Basophils (%) (Auto) 0 0-10 % Neutrophils # (Auto) 3.9 1.8-7.8 10^3/uL Lymphocytes # (Auto) 2.3 1.0-4.0 10^3/uL Monocytes # (Auto) 0.6 0.0-1.0 10^3/uL Eosinophils # (Auto) 0.1 0.0-0.3 10^3/uL Basophils # (Auto) 0.0 0.0-0.1 10^3/uL Immature Granulocyte # (Auto) 0.0 0.0-0.1 10^3/uL Sodium Level 137 135-145 MMOL/L Potassium Level 3.7 3.6-5.0 MMOL/L Chloride Level 103 98-107 MMOL/L Carbon Dioxide Level 24 21-32 MMOL/L Anion Gap 10 5-14 MMOL/L Blood Urea Nitrogen 17 7-18 MG/DL Creatinine 0.94 0.60-1.30 MG/DL Estimat Glomerular Filtration Rate 77 BUN/Creatinine Ratio 18 Glucose Level 114 H 70-105 MG/DL Calcium Level 9.0 8.5-10.1 MG/DL Corrected Calcium 9.1 8.5-10.1 MG/DL Total Bilirubin 0.2 0.1-1.0 MG/DL Aspartate Amino Transf (AST/SGOT) 19 5-34 U/L Alanine Aminotransferase (ALT/SGPT) 20 0-55 U/L Alkaline Phosphatase 80 40-136 U/L Total Protein 7.1 6.4-8.2 GM/DL Albumin 3.9 3.2-4.5 GM/DL Amylase Level 33 25-125 U/L Lipase 88 H 8-78 U/L Micro Results Microbiology 09/07/22 Urine Culture - Final, Complete Klebsiella pneumoniae My Orders Orders - SHIRA HU APRN Ua Culture If Indicated (09/07/22 18:51) Urine Bedside (09/07/22 18:51) Comprehensive Metabolic Panel (09/07/22 19:12) Lipase (09/07/22 19:12) Amylase (09/07/22 19:12) Cbc With Automated Diff (09/07/22 19:12) Ct Abd/Pelv W (Appendicitis) (09/07/22 19:12) Iohexol Injection (Omnipaque 350 Mg/Ml 1 (09/07/22 19:30) Received Contrast (Hold Metformin- Contr (09/07/22 19:30) Ns (Ivpb) (Sodium Chloride 0.9% Ivpb Bag (09/07/22 19:30) Urine Culture (09/07/22 19:10) Ceftriaxone 1 Gm Pre-Mix (Rocephin 1 Gm (09/07/22 20:15) Ed Iv/Invasive Line Start (09/07/22 20:15) Ns Iv 1000 Ml (Sodium Chloride 0.9%) (09/07/22 20:15) Medications Given in ED Vital Signs/I&O 09/07/22 09/07/22 19:04 20:52 Temp 37.0 37.0 Pulse 79 74 Resp 18 18 B/P (MAP) 97/69 (78) 123/66 Blood Pressure Mean: 78 Progress Progress Note : Time: : Progress Note Patient seen and evaluated, resting comfortably in bed, no acute distress. Based on exam and symptoms, work-up initially included CBC, CMP, amylase, lipase, UA, urine , CT abdomen pelvis. 2014 Labs reviewed. CBC shows decreased hemoglobin 10.7, decreased hematocrit at 34. CMP grossly negative, glucose slightly elevated 114. Liver enzymes within normal limits, AST 19, ALT 20. Lipase slightly elevated 88. Amylase normal 33. UA reviewed. 1+ leukocytes, trace RBC, 25-50 WBC, 25-50 squamous of the cells, moderate bacteria. Rocephin ordered for UTI. CT reviewed. No acute abnormality. Appendix is normal. Pancreas is normal. Liver is normal. Results discussed with patient. Will discharge after IV antibiotics and fluids. Discharge instructions and return precautions provided. Diagnostic Imaging Diagonstic Imaging: CT Plain Films/CT/US/NM/MRI: abdomen, pelvis Comments [facility] [place] NAME: DORIAN BROWN [facility] REC#: [id number] PT STATUS: REG ER : 1975 PHYSICIAN: SHIRA HU APRN ADMIT DATE: 09/07/22/ER Signed Date of Exam:09/07/22 CT ABD/PELV W (APPENDICITIS) PROCEDURE: CT abdomen and pelvis with contrast, rule out appendicitis. TECHNIQUE: Multiple contiguous axial images were obtained through the abdomen and pelvis after the administration of intravenous contrast. All CT scans use one or more of the following dose optimizing techniques: automated exposure control, MA and/or KvP adjustment based on patient size and exam type or iterative reconstruction. INDICATION: Right lower quadrant pain COMPARISON: CT abdomen pelvis on 02/27/2021 FINDINGS: Included views of the lung bases are clear. The liver, spleen, adrenal glands, and pancreas are normal. The kidneys are normal. The bowel is nondistended. The gallbladder surgically absent. The appendix is normal. Scattered diverticula of the sigmoid colon without evidence of diverticulitis no free air, loculated fluid collections, or ascites. No stones within the kidneys. Normal ureters and urinary bladder. Phleboliths noted within the pelvis. The soft tissues are normal. The osseous structures demonstrate no lytic or sclerotic bone lesion. IMPRESSION: No acute findings in the abdomen or pelvis. Normal appendix. No nephrolithiasis or hydronephrosis. Dictated by: Dictated on workstation # [id number] Dict: 09/07/221950 Trans: 09/07/221952 [facility] [place] [id number] Interpreted by: NATIVIDAD ANDERSON DO Electronically signed by: NATIVIDAD ANDERSON DO 09/07/221952 Departure Impression Primary Impression: UTI (urinary tract infection) Qualified Codes: N30.01 - Acute cystitis with hematuria Additional Impressions: Anemia Qualified Codes: D64.9 - Anemia, unspecified Elevated lipase Disposition: HOME, SELF-CARE Condition: Stable Departure-Patient Inst. Decision time for Depature: 20:31 Referrals: [facility] (PCP) Primary Care Physician AUDREY ELIZABETH (Family) Primary Care Physician Patient Instructions: Urinary Tract Infections in Adults Add. Discharge Instructions: Complete full course of antibiotic, even if you begin to feel better. Follow-up with your primary care provider regarding your anemia and elevated lipase level. Return for severe pain, recurrent vomiting, inability to urinate, or any other new, concerning, or worsening symptoms. All discharge instructions reviewed with patient and/or family. Voiced understanding. Scripts Nitrofurantoin Monohyd/M-Cryst (Nitrofurantoin Tunica-Mcr 100 mg) 100 Mg Capsule 100 MG PO BID for 5 Days, #10 CAP 0 Refills Prov: SHIRA HU APRN 09/07/22 SHIRA HU APRN Sep 07, 2022 19:27
[2022-09-07] MEDS ORDERED: IOHEXOL 350 MG/ML 100 ML (OMNIPAQUE 350) VIAL IV ONE (19:30)
[2022-09-07] MEDS ORDERED: HOLD METFORMIN - RECEIVED CONTRAST 20 ML VIAL IV SCH (19:30)
[2022-09-07] MEDS ORDERED: NS 100 ML (IVPB) BAG IV ONE (19:30)
[2022-09-07 19:34] LABS: BACTERIA,URINE MODERATE /HPF; RBC,URINE 0-2 /HPF; SQUAMOUS EPITHELIAL CELL,UR 25-50 /HPF; WBC,URINE 25-50 /HPF
[2022-09-07 19:38] LABS: BASOPHILS % (AUTO) 0 % (0-10); EOSINOPHILS # (AUTO) 0.1 10^3/uL (0.0-0.3); EOSINOPHILS % (AUTO) 2 % (0-10); HEMATOCRIT 34 % (35-52); HEMOGLOBIN 10.7 g/dL (11.5-16.0); LYMPHOCYTES # (AUTO) 2.3 10^3/uL (1.0-4.0); LYMPHOCYTES % (AUTO) 33 % (12-44); MEAN CORPUSCULAR HEMOGLOBIN 26 pg (25-34); MEAN CORPUSCULAR HGB CONC 32 g/dL (32-36); MEAN CORPUSCULAR VOLUME 81 fL (80-99); MEAN PLATELET VOLUME 9.2 fL (9.0-12.2); MONOCYTES # (AUTO) 0.6 10^3/uL (0.0-1.0); MONOCYTES % (AUTO) 9 % (0-12); NEUTROPHILS # (AUTO) 3.9 10^3/uL (1.8-7.8); NEUTROPHILS % (AUTO) 56 % (42-75); PLATELET COUNT 285 10^3/uL (130-400)
--- NOTE | 2022-09-07 19:55 | Diagnostic Imaging Report ---
PROCEDURE: CT abdomen and pelvis with contrast, rule out appendicitis. TECHNIQUE: Multiple contiguous axial images were obtained through the abdomen and pelvis after the administration of intravenous contrast. All CT scans use one or more of the following dose optimizing techniques: automated exposure control, MA and/or KvP adjustment based on patient size and exam type or iterative reconstruction. INDICATION: Right lower quadrant pain COMPARISON: CT abdomen pelvis on 02/27/2021 FINDINGS: Included views of the lung bases are clear. The liver, spleen, adrenal glands, and pancreas are normal. The kidneys are normal. The bowel is nondistended. The gallbladder surgically absent. The appendix is normal. Scattered diverticula of the sigmoid colon without evidence of diverticulitis no free air, loculated fluid collections, or ascites. No stones within the kidneys. Normal ureters and urinary bladder. Phleboliths noted within the pelvis. The soft tissues are normal. The osseous structures demonstrate no lytic or sclerotic bone lesion. IMPRESSION: No acute findings in the abdomen or pelvis. Normal appendix. No nephrolithiasis or hydronephrosis. Dictated by: Dictated on workstation # [id number]
[2022-09-07 20:04] LABS: ALBUMIN 3.9 GM/DL (3.2-4.5); BILIRUBIN,TOTAL 0.2 MG/DL (0.1-1.0); CREATININE SERUM 0.94 MG/DL (0.60-1.30); POTASSIUM 3.7 MMOL/L (3.6-5.0); TOTAL PROTEIN 7.1 GM/DL (6.4-8.2)
[2022-09-07] MEDS ORDERED: cefTRIAXone 1 GM PRE-MIX 50 ML IV ONE (20:15)
[2022-09-07] MEDS ORDERED: NS IV 1000 ML 1,000 ML IV SCH (20:15)
[2022-09-07] MEDS ORDERED: NITR100C10 PO (20:33)
[2022-09-07 20:52] VITALS: BP 123/66
== END 2022-09-07 20:54 | disposition home or self-care (01) ==
LOC: EDUNIT# 18:49 → ER 18:53
DX: N39.0 Urinary tract infection, site not specified (principal); D64.9 Anemia, unspecified; R74.8 Abnormal levels of other serum enzymes; E13.9 Other specified diabetes mellitus without complications; Z87.19 Personal history of other diseases of the digestive system
CPT/HCPCS: 36415; 74177; 80053; 81000; 82150; 83690; 84703; 85025; 87077; 87088; 87186

== ENCOUNTER 2022-10-11 19:14 | Emergency (ER) | payer SELFPAY ==
[~2022-10-11] VITALS: Ht 167.7 cm; Wt 93.0 kg
[2022-10-11] MEDS ORDERED: NS IV 1000 ML 1,000 ML IV STA ×2 (19:44→20:57)
[2022-10-11] MEDS ORDERED: ONDANSETRON 4 MG/2 ML (SDV) Z0FRAN IVP ONE ×2 (19:45→21:30)
[2022-10-11] MEDS ORDERED: DICYCLOMINE 10 MG/ML (BENTYL) 2 ML AMP IM STA (19:51)
[2022-10-11] MEDS ORDERED: fentaNYL INJ 100 MCG/2 ML AMP IVP STA (19:53)
--- NOTE | 2022-10-11 19:56 | ED Abdominal Pain ---
General Stated Complaint: VOMITING/ABD PAIN Source of Information: Patient Exam Limitations: No Limitations (JOSEFINA BANDA) History of Present Illness Date Seen by Provider: October 11, 2022 Time Seen by Provider: 19:54 Initial Comments Patient is a 46-year-old female with a history of liver disease, seizures, type 2 diabetes, IBS who presents ED with vomiting, generalized abdominal cramping. She states she started vomiting last night. She reports more than 15 episodes since last night. She reports liquid vomit with bile. Denies of any hematemesis. Cramping started last night after vomiting. Cramping throughout her abdomen. History of IBS currently on Bentyl. She denies of any diarrhea. She states she feels weak and fatigued. Continue vomiting throughout the day. Not able to take her Bentyl. History of similar symptoms in the past. Denies of any drug use or alcohol use. Denies any chest pain, cough, shortness of breath, fever, dizziness, headache. History of cholecystectomy, bladder sling with takedown. Denies any drug use or alcohol use (JOSEFINA BANDA) Allergies and Home Medications Allergies Coded Allergies: morphine (Verified Allergy, Unknown, CAUSES "REBOUND HEADACHES", 12/13/20) PT HAS RECEIVED LORTAB & OXYCODONE IN THE PAST baclofen (Verified Adverse Reaction, Severe, 12/13/20) PATIENT UNAWARE OF REACTION BUT WAS HOSPITALIZED AFTER TAKING MEDICATION AND WAS TOLD IT WAS A REACTION DUE TO THE MEDICATION SHE TOOK. meloxicam (Verified Adverse Reaction, Severe, 12/13/20) PATIENT UNAWARE OF REACTION BUT WAS HOSPITALIZED AFTER TAKING MEDICATION AND WAS TOLD IT WAS A REACTION DUE TO THE MEDICATION SHE TOOK. NSAIDS (Non-Steroidal Anti-Inflamma (Verified Adverse Reaction, Mild, have IBS and avoid NSAIDS, 12/13/20) Patient Home Medication List Home Medication List Reviewed: No (CHANTEL MAYORGA DO) Famotidine (Famotidine) 20 Mg Tablet, 20 MG PO BID, (Reported) Entered as Reported by: ZAIRA ARCHER on 05/05/21 1450 Metoclopramide HCl (Reglan) 10 Mg Tablet, 10 MG PO BID Prescribed by: FAMILIA ELISE on 05/26/21 1054 Metoclopramide HCl (Reglan) 10 Mg Tablet, 10 MG PO TID Prescribed by: VERONICA CAICEDO on 10/11/222217 Nitrofurantoin Monohyd/M-Cryst (Nitrofurantoin [place]-Mcr 100 mg) 100 Mg Capsule, 100 MG PO BID Prescribed by: Shira Juarez on 09/07/222032 Ondansetron (Ondansetron Odt) 8 Mg Tab.rapdis, 8 MG PO Q8H PRN for nausea Prescribed by: ARIELLA WARNER on 10/30/21 0834 Pantoprazole Sodium (Protonix) 40 Mg Tablet.dr, 40 MG PO DAILY Prescribed by: VERONICA CAICEDO on 10/11/222217 Potassium Chloride (Klor-Con M20) 20 Meq Tab.er.prt, 20 MEQ PO DAILY Prescribed by: KRYSTIN RAMOS on 05/08/21 111 Spironolactone (Spironolactone) 25 Mg Tablet, 50 MG PO BID Prescribed by: KRYSTIN RAMOS on 05/08/21 1113 Tramadol HCl (Tramadol HCl) 50 Mg Tablet, 50 MG PO Q6H PRN for abdominal pain Prescribed by: ARIELLA WARNER on 05/13/21 1304 Tramadol HCl (Tramadol HCl) 50 Mg Tablet, 50 MG PO Q6H PRN for PAIN Prescribed by: ARIELLA WARNER on 12/27/21 1120 Review of Systems Review of Systems Constitutional: No diaphoresis, No fever; malaise, weakness EENTM: No Blurred Vision, No Double Vision, No Eye Pain Respiratory: Denies Cough, Denies Shortness of Air Cardiovascular: Denies Chest Pain, Denies Edema Gastrointestinal: Abdominal Pain; Denies Blood Streaked Stools; Nausea, Vomiting Genitourinary: Denies Burning, Denies Discharge, Denies Drainage, Denies Frequency Musculoskeletal: No back pain, No joint pain (JOSEFINA BANDA) All Other Systems Reviewed Negative Unless Noted: Yes (JOSEFINA BANDA) Past Usxbwgx-Bzyuhu-Ggnfdu Hx Immunizations Up To Date Tetanus Booster (TDap): Unknown PED Vaccines UTD: No First/Initial COVID19 Vaccinat: NOV Second COVID19 Vaccination Marv: NOV Third COVID19 Vaccination Date: NOV (JOSEFINA BANDA) Seasonal Allergies Seasonal Allergies: No (JOSEFINA BANDA) Past Medical History Surgery/Hospitalization HX: TONSILLECTOMY HYSTERECTOMY BILATERAL TUBAL LIGATION CHOLECYSTECTOMY LAPAROSCOPY 09/19/[address] BHATTI FOR INTUSSUCEPTION EGD'S--LAST ONE 01/16/[address] BHATTI--SHOWED GASTRITIS, SMALL HIATAL. 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 Sexually Transmitted Disease: Yes (HPV) HIV/AIDS: No Genitourinary: Yes Bladder Infection Gastrointestinal: Yes (History of cyclic vomiting and cannabis hyperemesis;CHRONIC N/V/ABD PAIN ) Gastroesophageal Reflux, Diverticulosis, Esophagitis, Hiatal Hernia, Gall Bladder Disease Musculoskeletal: Yes Chronic Back Pain Endocrine: No HEENT: Yes (POOR DENTITION) Loss of Vision: Denies Hearing Impairment: Denies Cancer: Yes Uterine Psychosocial: Yes (THC USE) Anxiety, Depression Integumentary: No Blood Disorders: No Adverse Reaction/Blood Tranf: No (JOSEFINA BANDA) Family Medical History Diabetes mellitus 19 FATHER FHx: brain tumor 19 MOTHER HPV infection G8 SISTER No Family History of: AIDS Abdominal aortic aneurysm Boyle's disease Alcoholism Alzheimer's disease Aphasia Arthritis Asthma Cancer of mouth Cardiovascular disease Cataracts Colon cancer Completed stroke Congenital disease Congenital heart disease Coronary thrombosis Cystic fibrosis Deafness or hearing loss Dementia Drug abuse Dysphasia Fibrocystic disease of breast Gastroenteritis Glaucoma Headache disorder Hypercholesterolemia Hypertension Infertility Kidney disease Myocardial infarction Neoplasm Not obtainable due to adoption Osteoporosis Parkinson's disease Prostate cancer Psychosocial problem Respiratory disorder Seizure disorder Severe allergy Thyroid disease Tuberculosis Visual disorder Heart Disease, Hypertension SOCIAL HISTORY: -SMOKING -ETOH- -DRUGS--CHRONIC MARIJUANA USE PAST SURGICAL HISTORY: -09/20/20--LAPAROSCOPY FOR INTUSSCEPTION BY DR. BHATTI -08/24/20 --EGD/COLONOSCOPY--DX GASTRITIS/ESOPHAGITIS -01/16/21--EGD BY DR. BHATTI--DX GASTRITIS/ESOPHAGITIS/SMALL HIATAL HERNIA -CHOLECYSTECTOMY -BILATERAL TUBAL LIGATION -HYSTERECTOMY/BILATERAL SALPINGO-OOPHORECTOMY 2005 -BLADDER SLING/LATER REMOVED -CARDIAC CATH 2012--NORMAL (JOSEFINA BANDA) Physical Exam Vital Signs Vital Signs - First Documented 10/11/22 19:37 Temp 37.3 Pulse 116 Resp 20 B/P (MAP) 168/107 (127) Pulse Ox 97 O2 Delivery Room Air (MUKESH,CHANTEL K DO) Vital Signs Capillary Refill : (JOSEFINA BANDA) Height/Weight/BMI Height: 5'6.00" Weight: 203lbs. 6.4oz. 92.909309gp; 29.00 BMI Method:Stated General Appearance: WD/WN, no apparent distress HEENT: PERRL/EOMI, normal ENT inspection, TMs normal, pharynx normal Neck: non-tender, full range of motion, supple, normal inspection Respiratory: chest non-tender, lungs clear, normal breath sounds, no respiratory distress, no accessory muscle use Cardiovascular: no edema, no gallop, no JVD, tachycardia Gastrointestinal: normal bowel sounds, soft, no organomegaly, no pulsatile mass, tenderness (Generalized tenderness) Extremities: normal range of motion, non-tender, normal inspection Back: normal inspection, no CVA tenderness 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, no motor/sensory deficits, alert, normal mood/affect, oriented x 3 Skin: normal color, warm/dry (JOSEFINA BANDA) Progress/Results/Core Measures Results/Orders Lab Results Laboratory Tests Test 10/11/22 19:40 10/11/22 19:53 Range/Units Urine Color DARK YELLOW Urine Clarity CLEAR Urine pH 6.5 5-9 Urine Specific Ehrhardt 1.025 H 1.016-1.022 Urine Protein 2+ H NEGATIVE Urine Glucose (UA) NEGATIVE NEGATIVE Urine Ketones 1+ H NEGATIVE Urine Nitrite NEGATIVE NEGATIVE Urine Bilirubin 1+ H NEGATIVE Urine Urobilinogen 0.2 < = 1.0 MG/DL Urine Leukocyte Esterase NEGATIVE NEGATIVE Urine RBC (Auto) NEGATIVE NEGATIVE Urine RBC 2-5 H /HPF Urine WBC 0-2 /HPF Urine Squamous Epithelial Cells 2-5 /HPF Urine Crystals PRESENT H /LPF Urine Amorphous Sediment FEW TETE URATES H /LPF Urine Bacteria FEW H /HPF Urine Casts PRESENT /LPF Urine Hyaline Casts 5-10 H /LPF Urine Mucus MODERATE H /LPF Urine Culture Indicated NO Urine Test NEGATIVE NEGATIVE Urine Opiates Screen NEGATIVE NEGATIVE Urine Oxycodone Screen NEGATIVE NEGATIVE Urine Methadone Screen NEGATIVE NEGATIVE Urine Propoxyphene Screen NEGATIVE NEGATIVE Urine Barbiturates Screen NEGATIVE NEGATIVE Ur Tricyclic Antidepressants Screen POSITIVE H NEGATIVE Urine Phencyclidine Screen NEGATIVE NEGATIVE Urine Amphetamines Screen NEGATIVE NEGATIVE Urine Methamphetamines Screen NEGATIVE NEGATIVE Urine Benzodiazepines Screen NEGATIVE NEGATIVE Urine Cocaine Screen NEGATIVE NEGATIVE Urine Cannabinoids Screen NEGATIVE NEGATIVE White Blood Count 12.5 H 4.3-11.0 10^3/uL Red Blood Count 5.32 H 3.80-5.11 10^6/uL Hemoglobin 13.5 11.5-16.0 g/dL Hematocrit 42 35-52 % Mean Corpuscular Volume 80 80-99 fL Mean Corpuscular Hemoglobin 25 25-34 pg Mean Corpuscular Hemoglobin Concent 32 32-36 g/dL Red Cell Distribution Width 17.2 H 10.0-14.5 % Platelet Count 483 H 130-400 10^3/uL Mean Platelet Volume 9.1 9.0-12.2 fL Immature Granulocyte % (Auto) 0 % Neutrophils (%) (Auto) 70 42-75 % Lymphocytes (%) (Auto) 22 12-44 % Monocytes (%) (Auto) 8 0-12 % Eosinophils (%) (Auto) 0 0-10 % Basophils (%) (Auto) 0 0-10 % Neutrophils # (Auto) 8.7 H 1.8-7.8 10^3/uL Lymphocytes # (Auto) 2.7 1.0-4.0 10^3/uL Monocytes # (Auto) 1.0 0.0-1.0 10^3/uL Eosinophils # (Auto) 0.0 0.0-0.3 10^3/uL Basophils # (Auto) 0.0 0.0-0.1 10^3/uL Immature Granulocyte # (Auto) 0.0 0.0-0.1 10^3/uL Sodium Level 143 135-145 MMOL/L Potassium Level 3.5 L 3.6-5.0 MMOL/L Chloride Level 99 98-107 MMOL/L Carbon Dioxide Level 23 21-32 MMOL/L Anion Gap 21 H 5-14 MMOL/L Blood Urea Nitrogen 17 7-18 MG/DL Creatinine 1.42 H 0.60-1.30 MG/DL Estimat Glomerular Filtration Rate 47 BUN/Creatinine Ratio 12 Glucose Level 180 H 70-105 MG/DL Calcium Level 10.5 H 8.5-10.1 MG/DL Corrected Calcium 8.5-10.1 MG/DL Magnesium Level 2.0 1.6-2.4 MG/DL Total Bilirubin 0.6 0.1-1.0 MG/DL Aspartate Amino Transf (AST/SGOT) 124 H 5-34 U/L Alanine Aminotransferase (ALT/SGPT) 137 H 0-55 U/L Alkaline Phosphatase 117 40-136 U/L Total Protein 9.4 H 6.4-8.2 GM/DL Albumin 5.2 H 3.2-4.5 GM/DL Lipase 54 8-78 U/L (MUKESHCHANTEL K DO) Medications Given in ED Current Medications Medications Dose Ordered Sig/Judi Route Start Time Stop Time Status Last Admin Dose Admin Ondansetron HCl 4 mg ONCE ONCE IVP 10/11/22 19:45 10/11/22 19:46 DC 10/11/22 20:03 4 MG Potassium Chloride 20 meq ONCE ONCE PO 10/11/22 21:00 10/11/22 21:01 DC 10/11/22 21:10 20 MEQ Promethazine HCl 25 mg ONCE ONCE IVP 10/11/22 21:45 10/11/22 21:46 DC 10/11/22 21:51 25 MG (MUKESH,CHANTEL K DO) Vital Signs/I&O 10/11/22 10/11/22 19:37 22:34 Temp 37.3 Pulse 116 89 Resp 20 18 B/P (MAP) 168/107 (127) 153/79 Pulse Ox 97 99 O2 Delivery Room Air Room Air (MUKESH,CHANTEL K DO) Departure Communication (PCP) History of IBS, cyclic vomiting syndrome, UTIs who presents ED with vomiting and generalized abdominal cramping. Reviewed previous ER visits, H&P, lab testing. Patient has been seen for similar type abdominal pain with vomiting. History of cyclic vomiting. Denies any drug use or alcohol use. Vomiting since last night with generalized abdominal cramping. No specific tenderness on palpation. Active vomiting on arrival. Patient was given Zofran and started on a liter of fluid. Generalized lab work with urinalysis. CBC showed white blood count of 12.5. Platelet 43. Normal hemoglobin. Chemistry potassium 3.5, creatinine of 1.42, GFR 47. AST 124, ALT 137. History of chronic liver disease. Patient continued feeling nauseous. Was given a dose of Phenergan and a second liter of fluid. Oral potassium 20 ml equivalent was provided. Magnesium 2.0. Patient symptoms started improving. Reassessed the abdomen without any specific tenderness. History of chronic abdominal pain. Did seem to improve with Bentyl. No imaging at this time as she had imaging in the past which was unremarkable. Does not appear surgical at this time. Patient was tolerating p.o. fluids. She states she does have nausea medication at home. She states she is feeling much better at this time. Urinalysis was negative for infection but does appear dry with hematuria, proteins, ketones, high specific. Vital signs stable after 2 L of fluid. She was tachycardic but that improved. Continue monitoring symptoms at home. If any worsening symptoms return back to ED such as increasing abdominal pain, fever. Continue with medication at home. Drug screen positive for tricyclic (JOSEFINA BANDA) Impression Primary Impression: Vomiting Additional Impression: HEATHER (acute kidney injury) Disposition: 01 HOME, SELF-CARE Condition: Stable Departure-Patient Inst. Decision time for Depature: 22:16 (JOSEFINA BANDA) Referrals: LANDON NYE APRN (PCP/Family) Primary Care Physician Patient Instructions: Nausea and Vomiting, Adult ED Add. Discharge Instructions: Clear liquid diet for the next 2 to 3 days. Then increase to a bland diet. Zofran or Reglan for nausea. Protonix to help with abdominal pain. Continue with your Bentyl. Follow-up with your primary care physician 2 to 3 days for reevaluation. Return back to ED if symptoms worsen or Scripts Metoclopramide HCl (Reglan) 10 Mg Tablet 10 MG PO TID for Nausea/Vomiting, #10 TAB Prov: JOSEFINA BANDA 10/11/22 Pantoprazole Sodium (Protonix) 40 Mg Tablet.dr 40 MG PO DAILY, #20 TAB Prov: JOSEFINA BANDA 10/11/22 ATTENDING PHYSICIAN NOTE: I WAS PHYSICALLY PRESENT ER PHYSICIAN, BUT I WAS NOT INVOLVED IN ANY DECISION MAKING OR ANY CARE OF THIS PATIENT, AND I AM NOT COLLABORATING PHYSICIAN. (CHANTEL MAYORGA DO) JOSEFINA BANDA October 11, 2022 19:56 CHANTEL MAYORGA DO October 12, 2022 03:31
[2022-10-11 20:01] LABS: BASOPHILS % (AUTO) 0 % (0-10); EOSINOPHILS % (AUTO) 0 % (0-10); HEMATOCRIT 42 % (35-52); HEMOGLOBIN 13.5 g/dL (11.5-16.0); LYMPHOCYTES # (AUTO) 2.7 10^3/uL (1.0-4.0); LYMPHOCYTES % (AUTO) 22 % (12-44); MEAN CORPUSCULAR HEMOGLOBIN 25 pg (25-34); MEAN CORPUSCULAR HGB CONC 32 g/dL (32-36); MEAN CORPUSCULAR VOLUME 80 fL (80-99); MEAN PLATELET VOLUME 9.1 fL (9.0-12.2); MONOCYTES % (AUTO) 8 % (0-12); NEUTROPHILS # (AUTO) 8.7 10^3/uL (1.8-7.8); NEUTROPHILS % (AUTO) 70 % (42-75); PLATELET COUNT 483 10^3/uL (130-400); WHITE BLOOD COUNT 12.5 10^3/uL (4.3-11.0)
[2022-10-11 20:01] LABS: CLARITY,URINE CLEAR; COLOR,URINE DARK YELLOW; GLUCOSE, URINE (UA) NEGATIVE (NEGATIVE); KETONES,URINE 1+ (NEGATIVE); LEUKOCYTE ESTERASE ,URINE NEGATIVE (NEGATIVE); NITRITE,URINE NEGATIVE (NEGATIVE); PH,URINE 6.5 (5-9); PROTEIN,URINE 2+ (NEGATIVE)
[2022-10-11 20:07] LABS: HCG,QUALITATIVE URINE NEGATIVE (NEGATIVE)
[2022-10-11 20:08] LABS: BILIRUBIN,URINE 1+ (NEGATIVE)
[2022-10-11 20:11] LABS: AMORPHOUS SEDIMENT,UR FEW AMOR URATES /LPF; BACTERIA,URINE FEW /HPF; WBC,URINE 0-2 /HPF
[2022-10-11 20:14] LABS: AMPHETAMINE SCREEN, URINE NEGATIVE (NEGATIVE); BARBITURATE SCREEN URINE NEGATIVE (NEGATIVE); BENZODIAZEPINES SCREEN URINE NEGATIVE (NEGATIVE); CANNABINOID SCREEN, URINE NEGATIVE (NEGATIVE); COCAINE SCREEN URINE NEGATIVE (NEGATIVE); METHADONE STAT NEGATIVE (NEGATIVE); OPIATE SCREEN URINE NEGATIVE (NEGATIVE); OXYCODONE STAT NEGATIVE (NEGATIVE); PROPOXYPHENE STAT NEGATIVE (NEGATIVE); TRICYCLIC ANTIDEPRESSANTS SCRE POSITIVE (NEGATIVE)
[2022-10-11 20:20] LABS: ALANINE AMINOTRANSFERASE 137 U/L (0-55); ALBUMIN 5.2 GM/DL (3.2-4.5); ALKALINE PHOSPHATASE 117 U/L (40-136); BILIRUBIN,TOTAL 0.6 MG/DL (0.1-1.0); BUN/CREATININE RATIO 12; CALCIUM 10.5 MG/DL (8.5-10.1); CARBON DIOXIDE 23 MMOL/L (21-32); CHLORIDE 99 MMOL/L (98-107); CREATININE SERUM 1.42 MG/DL (0.60-1.30); GFR ESTIMATED 47; GLUCOSE 180 MG/DL (70-105); LIPASE 54 U/L (8-78); POTASSIUM 3.5 MMOL/L (3.6-5.0); SODIUM 143 MMOL/L (135-145); TOTAL PROTEIN 9.4 GM/DL (6.4-8.2)
[2022-10-11] MEDS ORDERED: KCL 20 MEQ TAB (K-DUR) PO ONE (21:00)
[2022-10-11] MEDS ORDERED: PROMETHAZINE INJ 25 MG/ML (PHENERGAN) AMP IVP ONE (21:45)
[2022-10-11] MEDS ORDERED: RX-ONDANSETRON 4 MG ODT (ZOFRAN) PPK #4 PO ONE (22:15)
[2022-10-11] MEDS ORDERED: METO-310 PO (22:18)
[2022-10-11] MEDS ORDERED: PANT40TA2 PO (22:18)
[2022-10-11 22:34] VITALS: BP 153/79
== END 2022-10-11 22:35 | disposition home or self-care (01) ==
LOC: EDUNIT# 19:14 → ER 19:16
DX: N17.9 Acute kidney failure, unspecified (principal); K58.9 Irritable bowel syndrome, unspecified; Z90.49 Acquired absence of other specified parts of digestive tract; Z79.899 Other long term (current) drug therapy
CPT/HCPCS: 36415; 80053; 80306; 81000; 83690; 83735; 84703; 85025

== ENCOUNTER 2022-11-07 07:59 | Emergency (ER) | payer SELFPAY ==
[~2022-11-07] VITALS: Ht 167 cm; Wt 92.0 kg
--- NOTE | 2022-11-07 08:18 | ED GI ---
General Chief Complaint: Abdominal/GI Problems Stated Complaint: VOMITING | ABD PAIN Nursing Triage Note: N/V STARTING LAST NIGHT ET SENT OUT FROM THE CLINIC Source of Information: Patient Exam Limitations: No Limitations History of Present Illness Date Seen by Provider: Nov 07, 2022 Time Seen by Provider: 08:05 Initial Comments Patient is a 47-year-old female who presents to the emergency department with a chief complaint of diffuse abdominal pain/cramping onset at 11 PM last night as well as nausea and vomiting. She states her pain is no different than prior ep isodes. She has had about 4 or 5 episodes of vomiting she states since 11. She went to work and because she was vomiting was sent to the local health clinic. She has a history of diabetes, chronic abdominal pain nausea and vomiting and was sent from the clinic to the emergency department. Patient also takes medications for hypertension. She denies fevers or chills. No URI symptoms. No cough or shortness of breath. Denies diarrhea, black or bloody stool. No dysuria urgency or frequency. Patient adamantly denies that she is using any form of marijuana. She was given 8 mg of orally dissolving ondansetron prior to arrival at the clinic. Was noted to be dry heaving in the waiting room. History of cholecystectomy, bladder sling and left, hysterectomy. Timing/Duration: 12 Hours Severity/Quality: Severe, Aching, Cramping Location: Other (diffuse) Radiation: No Radiation Activities at Onset: None Associated Symptoms: Nausea/Vomiting Allergies and Home Medications Allergies Coded Allergies: morphine (Verified Allergy, Unknown, CAUSES "REBOUND HEADACHES", 12/13/20) PT HAS RECEIVED LORTAB & OXYCODONE IN THE PAST baclofen (Verified Adverse Reaction, Severe, 12/13/20) PATIENT UNAWARE OF REACTION BUT WAS HOSPITALIZED AFTER TAKING MEDICATION AND WAS TOLD IT WAS A REACTION DUE TO THE MEDICATION SHE TOOK. meloxicam (Verified Adverse Reaction, Severe, 12/13/20) PATIENT UNAWARE OF REACTION BUT WAS HOSPITALIZED AFTER TAKING MEDICATION AND WAS TOLD IT WAS A REACTION DUE TO THE MEDICATION SHE TOOK. NSAIDS (Non-Steroidal Anti-Inflamma (Verified Adverse Reaction, Mild, have IBS and avoid NSAIDS, 12/13/20) Patient Home Medication List Home Medication List Reviewed: Yes Famotidine (Famotidine) 20 Mg Tablet, 20 MG PO BID, (Reported) Entered as Reported by: ZAIRA ARCHER on 05/05/21 1450 Metoclopramide HCl (Reglan) 10 Mg Tablet, 10 MG PO BID Prescribed by: FAMILIA ELISE on 05/26/21 1054 Metoclopramide HCl (Reglan) 10 Mg Tablet, 10 MG PO TID Prescribed by: VERONICA CAICEDO on 10/11/22 221 Nitrofurantoin Monohyd/M-Cryst (Nitrofurantoin [place]-Mcr 100 mg) 100 Mg Capsule, 100 MG PO BID Prescribed by: Shira Juarez on 09/07/222032 Ondansetron (Ondansetron Odt) 8 Mg Tab.rapdis, 8 MG PO Q8H PRN for nausea Prescribed by: ARIELLA WARENR on 10/30/21 0834 Pantoprazole Sodium (Protonix) 40 Mg Tablet.dr, 40 MG PO DAILY Prescribed by: VERONICA CAICEDO on 10/11/222217 Potassium Chloride (Klor-Con M20) 20 Meq Tab.er.prt, 20 MEQ PO DAILY Prescribed by: KRYSTIN RAMOS on 05/08/21 1113 Spironolactone (Spironolactone) 25 Mg Tablet, 50 MG PO BID Prescribed by: KRYSTIN RAMOS on 05/08/21 1113 Tramadol HCl (Tramadol HCl) 50 Mg Tablet, 50 MG PO Q6H PRN for abdominal pain Prescribed by: ARIELLA WARNER on 05/13/21 1304 Tramadol HCl (Tramadol HCl) 50 Mg Tablet, 50 MG PO Q6H PRN for PAIN Prescribed by: ARIELLA WARNER on 12/27/21 1120 Review of Systems Review of Systems Constitutional: see HPI Respiratory: No Symptoms Reported Cardiovascular: No Symptoms Reported Gastrointestinal: Abdominal Pain, Nausea; Denies Rectal Bleeding; Vomiting Genitourinary: No Symptoms Reported Musculoskeletal: no symptoms reported Skin: no symptoms reported Psychiatric/Neurological: No Symptoms Reported Past Fmjymjg-Vboahc-Aioepx Hx Patient Social History Tobacco Use?: No Additional substance use comme: DENIES POT AT THIS TIME. Alcohol Use?: No Immunizations Up To Date Tetanus Booster (TDap): Unknown PED Vaccines UTD: No First/Initial COVID19 Vaccinat: 1 SHOT Second COVID19 Vaccination Marv: 1 SHOT Third COVID19 Vaccination Date: 1 SHOT Seasonal Allergies Seasonal Allergies: No Past Medical History Surgery/Hospitalization HX: TONSILLECTOMY HYSTERECTOMY BILATERAL TUBAL LIGATION CHOLECYSTECTOMY LAPAROSCOPY 09/19/[address] BHATTI FOR INTUSSUCEPTION EGD'S--LAST ONE 01/16/[address] BHATTI--SHOWED GASTRITIS, SMALL HIATAL. 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 Sexually Transmitted Disease: Yes (HPV) HIV/AIDS: No Genitourinary: Yes Bladder Infection Gastrointestinal: Yes (History of cyclic vomiting and cannabis hyperemesis;CHRONIC N/V/ABD PAIN ) Gastroesophageal Reflux, Diverticulosis, Esophagitis, Hiatal Hernia, Gall Bladder Disease Musculoskeletal: Yes Chronic Back Pain Endocrine: No HEENT: Yes (POOR DENTITION) Loss of Vision: Denies Hearing Impairment: Denies Cancer: Yes Uterine Psychosocial: Yes (THC USE) Anxiety, Depression Integumentary: No Blood Disorders: No Adverse Reaction/Blood Tranf: No Family Medical History Diabetes mellitus 19 FATHER FHx: brain tumor 19 MOTHER HPV infection G8 SISTER No Family History of: AIDS Abdominal aortic aneurysm [place]'s disease Alcoholism Alzheimer's disease Aphasia Arthritis Asthma Cancer of mouth Cardiovascular disease Cataracts Colon cancer Completed stroke Congenital disease Congenital heart disease Coronary thrombosis Cystic fibrosis Deafness or hearing loss Dementia Drug abuse Dysphasia Fibrocystic disease of breast Gastroenteritis Glaucoma Headache disorder Hypercholesterolemia Hypertension Infertility Kidney disease Myocardial infarction Neoplasm Not obtainable due to adoption Osteoporosis Parkinson's disease Prostate cancer Psychosocial problem Respiratory disorder Seizure disorder Severe allergy Thyroid disease Tuberculosis Visual disorder Heart Disease, Hypertension SOCIAL HISTORY: -SMOKING -ETOH- -DRUGS--CHRONIC MARIJUANA USE PAST SURGICAL HISTORY: -09/20/20--LAPAROSCOPY FOR INTUSSCEPTION BY DR. BHATTI -08/24/20 --EGD/COLONOSCOPY--DX GASTRITIS/ESOPHAGITIS -01/16/21--EGD BY DR. BHATTI--DX GASTRITIS/ESOPHAGITIS/SMALL HIATAL HERNIA -CHOLECYSTECTOMY -BILATERAL TUBAL LIGATION -HYSTERECTOMY/BILATERAL SALPINGO-OOPHORECTOMY 2005 -BLADDER SLING/LATER REMOVED -CARDIAC CATH 2012--NORMAL Physical Exam Vital Signs Vital Signs - First Documented 11/07/22 08:08 Temp 36.3 Pulse 100 Resp 16 B/P (MAP) 193/117 (142) Pulse Ox 99 O2 Delivery Simple Mask Capillary Refill : Less Than 3 Seconds Height/Weight/BMI Height: 5'6.00" Weight: 203lbs. 6.4oz. 92.229037um; 32.00 BMI Method:Stated General Appearance: WD/WN, mild distress, obese HEENT: PERRL/EOMI Respiratory: lungs clear, normal breath sounds, no respiratory distress, no accessory muscle use Cardiovascular: regular rate, rhythm, tachycardia (HR= 100) Gastrointestinal: normal bowel sounds, soft, tenderness (diffuse mild tenderness without rebound or involuntary guarding) Extremities: normal range of motion, normal inspection Neurologic/Psychiatric: alert, oriented x 3, other (tearful) Skin: normal color, warm/dry Progress/Results/Core Measures Results/Orders Lab Results Laboratory Tests Test 11/07/22 08:15 Range/Units White Blood Count 6.7 4.3-11.0 10^3/uL Red Blood Count 4.88 3.80-5.11 10^6/uL Hemoglobin 12.9 11.5-16.0 g/dL Hematocrit 40 35-52 % Mean Corpuscular Volume 82 80-99 fL Mean Corpuscular Hemoglobin 26 25-34 pg Mean Corpuscular Hemoglobin Concent 32 32-36 g/dL Red Cell Distribution Width 17.1 H 10.0-14.5 % Platelet Count 417 H 130-400 10^3/uL Mean Platelet Volume 9.0 9.0-12.2 fL Immature Granulocyte % (Auto) 0 % Neutrophils (%) (Auto) 65 42-75 % Lymphocytes (%) (Auto) 25 12-44 % Monocytes (%) (Auto) 9 0-12 % Eosinophils (%) (Auto) 1 0-10 % Basophils (%) (Auto) 0 0-10 % Neutrophils # (Auto) 4.3 1.8-7.8 10^3/uL Lymphocytes # (Auto) 1.7 1.0-4.0 10^3/uL Monocytes # (Auto) 0.6 0.0-1.0 10^3/uL Eosinophils # (Auto) 0.0 0.0-0.3 10^3/uL Basophils # (Auto) 0.0 0.0-0.1 10^3/uL Immature Granulocyte # (Auto) 0.0 0.0-0.1 10^3/uL Sodium Level 141 135-145 MMOL/L Potassium Level 3.6 3.6-5.0 MMOL/L Chloride Level 102 98-107 MMOL/L Carbon Dioxide Level 25 21-32 MMOL/L Anion Gap 14 5-14 MMOL/L Blood Urea Nitrogen 10 7-18 MG/DL Creatinine 1.09 0.60-1.30 MG/DL Estimat Glomerular Filtration Rate 64 BUN/Creatinine Ratio 9 Glucose Level 123 H 70-105 MG/DL Glucometer 123 H 70-110 MG/DL Calcium Level 10.8 H 8.5-10.1 MG/DL Corrected Calcium 8.5-10.1 MG/DL Total Bilirubin 0.5 0.1-1.0 MG/DL Aspartate Amino Transf (AST/SGOT) 77 H 5-34 U/L Alanine Aminotransferase (ALT/SGPT) 90 H 0-55 U/L Alkaline Phosphatase 89 40-136 U/L Total Protein 8.4 H 6.4-8.2 GM/DL Albumin 4.9 H 3.2-4.5 GM/DL Lipase 57 8-78 U/L My Orders Orders - ARIELLA WARNER MD Ed Iv/Invasive Line Start (11/07/22 08:19) Cbc With Automated Diff (11/07/22 08:19) Comprehensive Metabolic Panel (11/07/22 08:19) Lipase (11/07/22 08:19) Ns Iv 1000 Ml (Sodium Chloride 0.9%) (11/07/22 08:19) Promethazine Injection (Phenergan Injec (11/07/22 08:30) Diphenhydramine Injection (Benadryl Inje (11/07/22 08:30) Haloperidol Injection (Haldol Injectio (11/07/22 08:30) Medications Given in ED Current Medications Medications Dose Ordered Sig/Judi Route Start Time Stop Time Status Last Admin Dose Admin Diphenhydramine HCl 25 mg ONCE ONCE IVP 11/07/22 08:30 6/7/23 08:31 DC 11/07/22 08:23 25 MG Haloperidol Lactate 2.5 mg ONCE ONCE IM 11/07/22 08:30 11/07/22 08:31 DC 11/07/22 08:28 2.5 MG Promethazine HCl 25 mg ONCE ONCE IVP 11/07/22 08:30 11/07/22 08:31 DC 11/07/22 08:23 25 MG Vital Signs/I&O 11/07/22 08:08 Temp 36.3 Pulse 100 Resp 16 B/P (MAP) 193/117 (142) Pulse Ox 99 O2 Delivery Simple Mask Blood Pressure Mean: 142 Progress Progress Note : Time: 09:20 Progress Note Patient reevaluated at this time, resting comfortably improving. Patient seen and evaluated by me today. Evaluation today includes physical exam, CBC, Chem-12, lipase level. Pertinent physical exam findings well- developed well-nourished moderately obese female in mild distress due to nausea and dry heaving. Abdominal exam reveals quiet but present bowel sounds. Voluntary guarding with diffuse mild tenderness to palpation of the abdomen. The abdomen is soft, nondistended. Otherwise no focal or concerning findings. Differential diagnosis based on history and physical exam acute exacerbation of chronic nausea and vomiting, cannabis hyperemesis syndrome, bowel obstruction, acute gastroenteritis. Labs independently interpreted by me, CBC is normal, Chem-12 shows a normal lipase with normal electrolytes and mildly elevated liver functions consistent with prior laboratory studies. Patient is treated with a liter of IV fluids, normal saline. She is also given 25 mg of IV Benadryl, 25 mg of IV Phenergan as well as 2.5 mg of IM Haldol. Patient achieved improvement in her nausea and pain. Recommended to follow-up with her primary care provider. No concerning findings on exam for bowel obstruction. She is not having diarrhea doubt this is a viral gastroenteritis. She does have diabetes, she likely has a component of gastroparesis. Would recommend continuing her current medications. Return precautions provided in both verbal and written format. All questions are sought and answered. Patient is improved at discharge. Departure Impression Primary Impression: Nausea and vomiting Qualified Codes: R11.2 - Nausea with vomiting, unspecified Additional Impression: Abdominal pain Qualified Codes: R10.84 - Generalized abdominal pain Disposition: 01 HOME, SELF-CARE Condition: Improved Departure-Patient Inst. Decision time for Depature: 09:24 Referrals: LANDON NYE APRN (PCP/Family) Primary Care Physician Patient Instructions: Nausea and Vomiting, Adult Add. Discharge Instructions: Continue your daily medications as prescribed. Follow a clear liquid diet this morning and into the afternoon. As your symptoms continue to improve you can advance your diet as tolerated. If you develop a fever, blood in your vomit, return to the emergency department for reevaluation. Please follow-up next week with your primary care provider. Work/School Note: Work Release Form Date Seen in the Emergency Department: Nov 07, 2022 Return to Work: Nov 08, 2022 Copy Copies To 1: ANNE BYRD KATHRYN M MD Nov 07, 2022 08:18
[2022-11-07] MEDS ORDERED: NS IV 1000 ML 1,000 ML IV STA (08:19)
[2022-11-07 08:24] LABS: BASOPHILS % (AUTO) 0 % (0-10); EOSINOPHILS % (AUTO) 1 % (0-10); HEMATOCRIT 40 % (35-52); HEMOGLOBIN 12.9 g/dL (11.5-16.0); LYMPHOCYTES # (AUTO) 1.7 10^3/uL (1.0-4.0); LYMPHOCYTES % (AUTO) 25 % (12-44); MEAN CORPUSCULAR HEMOGLOBIN 26 pg (25-34); MEAN CORPUSCULAR HGB CONC 32 g/dL (32-36); MEAN CORPUSCULAR VOLUME 82 fL (80-99); MONOCYTES # (AUTO) 0.6 10^3/uL (0.0-1.0); MONOCYTES % (AUTO) 9 % (0-12); NEUTROPHILS # (AUTO) 4.3 10^3/uL (1.8-7.8); NEUTROPHILS % (AUTO) 65 % (42-75); PLATELET COUNT 417 10^3/uL (130-400); WHITE BLOOD COUNT 6.7 10^3/uL (4.3-11.0)
[2022-11-07] MEDS ORDERED: diphenhydrAMINE 50 MG/ML INJ (BENADRYL) IVP ONE (08:30)
[2022-11-07] MEDS ORDERED: HALOPERIDOL 5 MG/ML (HALDOL) VIAL IM ONE (08:30)
[2022-11-07] MEDS ORDERED: PROMETHAZINE INJ 25 MG/ML (PHENERGAN) AMP IVP ONE (08:30)
[2022-11-07 08:33] LABS: ALBUMIN 4.9 GM/DL (3.2-4.5)
[2022-11-07 08:34] LABS: CHLORIDE 102 MMOL/L (98-107); POTASSIUM 3.6 MMOL/L (3.6-5.0); SODIUM 141 MMOL/L (135-145)
[2022-11-07 08:35] LABS: CALCIUM 10.8 MG/DL (8.5-10.1)
[2022-11-07 08:36] LABS: GLUCOSE 123 MG/DL (70-105); TOTAL PROTEIN 8.4 GM/DL (6.4-8.2)
[2022-11-07 08:37] LABS: CARBON DIOXIDE 25 MMOL/L (21-32)
[2022-11-07 08:38] LABS: BILIRUBIN,TOTAL 0.5 MG/DL (0.1-1.0)
[2022-11-07 08:39] LABS: ALKALINE PHOSPHATASE 89 U/L (40-136)
[2022-11-07 08:40] LABS: CREATININE SERUM 1.09 MG/DL (0.60-1.30); GFR ESTIMATED 64
[2022-11-07 08:41] LABS: BUN/CREATININE RATIO 9
[2022-11-07 08:42] LABS: ALANINE AMINOTRANSFERASE 90 U/L (0-55)
[2022-11-07 08:43] LABS: LIPASE 57 U/L (8-78)
[2022-11-07 09:50] VITALS: BP 179/95
== END 2022-11-07 09:49 | disposition home or self-care (01) ==
LOC: EDUNIT# 07:59 → ER 08:01
DX: R11.2 Nausea with vomiting, unspecified (principal); R10.84 Generalized abdominal pain; I10 Essential (primary) hypertension; E11.9 Type 2 diabetes mellitus without complications; E66.9 Obesity, unspecified; R74.01 Elevation of levels of liver transaminase levels; Z79.899 Other long term (current) drug therapy; Z68.32 Body mass index [BMI] 32.0-32.9, adult; Z90.49 Acquired absence of other specified parts of digestive tract
CPT/HCPCS: 36415; 80053; 82947; 83690; 85025; 96361; 96372; 96374; 96375

== ENCOUNTER 2023-03-05 15:56 | Emergency (ER) | payer SELFPAY ==
[~2023-03-05 15:56] MED LIST changes: +FAMO-356 PO; -FAMO20TA3 PO; -POTA10CA44 PO; +POTA10CA84 PO
[2023-03-05] MEDS ORDERED: fentaNYL INJECTION 100 MCG/2 ML VIAL IVP STA (16:52)
[2023-03-05] MEDS ORDERED: NS IV 1000 ML 1,000 ML IV STA (16:52)
--- NOTE | 2023-03-05 16:55 | ED General ---
General Chief Complaint: General Problems/Pain Stated Complaint: VOMITING, FALL - RT SIDE TORSO BRUSING, MIGRANE Nursing Triage Note: PT AMB TO TRIAGE, PT CO OF N/V X 2 DAYS, FALL YESTERDAY W R RIB INJURY AND PAIN RATES8/10. STATES SLIPPED IN BATH TUB. DENIES LOC OR HITTING HEAD. STATES ALSO HAS MIGRAINE FOR 2 DAYS. Source of Information: Patient Exam Limitations: No Limitations History of Present Illness Date Seen by Provider: Mar 05, 2023 Time Seen by Provider: 16:53 Initial Comments Patient is a 47-year-old female who presents ED with right-sided rib pain, m igraine and vomiting. Patient states she fell in her bathtub yesterday hitting the right side of her ribs. This resulted in bruising and pain. Pain with deep inspiration or movement. She denies hitting her head or loss of consciousness. She did develop a frontal head pain rates pain 8 out of 10 described as pressure and constant. Photophobia and phonophobia. She reports vomiting 4 times since last night. She took her Imitrex for her chronic migraines without much improvement. History of frequent migraines. 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 She denies of any visual loss, unilateral muscle weakness or sensory changes, abdominal pain, diarrhea, fever, chills, neck pain, dysuria, hematuria, increased urine frequency Allergies and Home Medications Allergies Coded Allergies: morphine (Verified Allergy, Unknown, CAUSES "REBOUND HEADACHES", 12/13/20) PT HAS RECEIVED LORTAB & OXYCODONE IN THE PAST baclofen (Verified Adverse Reaction, Severe, 12/13/20) PATIENT UNAWARE OF REACTION BUT WAS HOSPITALIZED AFTER TAKING MEDICATION AND WAS TOLD IT WAS A REACTION DUE TO THE MEDICATION SHE TOOK. meloxicam (Verified Adverse Reaction, Severe, 12/13/20) PATIENT UNAWARE OF REACTION BUT WAS HOSPITALIZED AFTER TAKING MEDICATION AND WAS TOLD IT WAS A REACTION DUE TO THE MEDICATION SHE TOOK. NSAIDS (Non-Steroidal Anti-Inflamma (Verified Adverse Reaction, Mild, have IBS and avoid NSAIDS, 12/13/20) Patient Home Medication List Home Medication List Reviewed: Yes Famotidine (Famotidine) 20 Mg Tablet, 20 MG PO BID, (Reported) Entered as Reported by: ZAIRA ARCHER on 05/05/21 0310 Metoclopramide HCl (Reglan) 10 Mg Tablet, 10 MG PO BID Prescribed by: FAMILIA ELISE on 05/26/21 1054 Metoclopramide HCl (Reglan) 10 Mg Tablet, 10 MG PO TID Prescribed by: VERONICA CAICEDO on 10/11/222217 Nitrofurantoin Monohyd/M-Cryst (Nitrofurantoin [place]-Mcr 100 mg) 100 Mg Capsule, 100 MG PO BID Prescribed by: Shira Juarez on 09/07/222032 Ondansetron (Ondansetron Odt) 8 Mg Tab.rapdis, 8 MG PO Q8H PRN for nausea Prescribed by: ARIELLA WARNER on 10/30/21 0834 Pantoprazole Sodium (Protonix) 40 Mg Tablet.dr, 40 MG PO DAILY Prescribed by: VERONICA CAICEDO on 10/11/222217 Potassium Chloride (Klor-Con M20) 20 Meq Tab.er.prt, 20 MEQ PO DAILY Prescribed by: KRYSTIN RAMOS on 05/08/21 1113 Spironolactone (Spironolactone) 25 Mg Tablet, 50 MG PO BID Prescribed by: KRYSTIN RAMOS on 05/08/21 1113 Tramadol HCl (Tramadol HCl) 50 Mg Tablet, 50 MG PO Q6H PRN for abdominal pain Prescribed by: ARIELLA WARNER on 05/13/21 1304 Tramadol HCl (Tramadol HCl) 50 Mg Tablet, 50 MG PO Q6H PRN for PAIN Prescribed by: ARIELLA WARNER on 12/27/21 1120 Review of Systems Review of Systems Constitutional: No chills, No diaphoresis, No malaise, No weakness EENTM: No ear pain, No blurred vision, No double vision Respiratory: No cough, No dyspnea on exertion Cardiovascular: No chest pain Gastrointestinal: No abdominal pain, No diarrhea; nausea, vomiting Genitourinary: No decreased output, No discharge Musculoskeletal: No back pain, No joint pain, No joint swelling; muscle pain, muscle stiffness Skin: change in color All Other Systems Reviewed Negative Unless Noted: Yes Past Blfilgd-Grszbz-Jvbchz Hx Patient Social History Tobacco Use?: No Substance use?: No Alcohol Use?: No Pt feels they are or have been: No Immunizations Up To Date Tetanus Booster (TDap): Unknown PED Vaccines UTD: No First/Initial COVID19 Vaccinat: 1 SHOT Second COVID19 Vaccination Marv: 1 SHOT Third COVID19 Vaccination Date: 1 SHOT Seasonal Allergies Seasonal Allergies: No Past Medical History Surgery/Hospitalization HX: TONSILLECTOMY HYSTERECTOMY BILATERAL TUBAL LIGATION CHOLECYSTECTOMY LAPAROSCOPY 09/19/[address] BHATTI FOR INTUSSUCEPTION EGD'S--LAST ONE 01/16/[address] BHATTI--SHOWED GASTRITIS, SMALL HIATAL. 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 Sexually Transmitted Disease: Yes (HPV) HIV/AIDS: No Genitourinary: Yes Bladder Infection Gastrointestinal: Yes (History of cyclic vomiting and cannabis hyperemesis;CHRONIC N/V/ABD PAIN ) Gastroesophageal Reflux, Diverticulosis, Esophagitis, Hiatal Hernia, Gall Bladder Disease Musculoskeletal: Yes Chronic Back Pain Endocrine: No HEENT: Yes (POOR DENTITION) Loss of Vision: Denies Hearing Impairment: Denies Cancer: Yes Uterine Psychosocial: Yes (THC USE) Anxiety, Depression Integumentary: No Blood Disorders: No Adverse Reaction/Blood Tranf: No Family Medical History Diabetes mellitus 19 FATHER FHx: brain tumor 19 MOTHER HPV infection G8 SISTER No Family History of: AIDS Abdominal aortic aneurysm Madi's disease Alcoholism Alzheimer's disease Aphasia Arthritis Asthma Cancer of mouth Cardiovascular disease Cataracts Colon cancer Completed stroke Congenital disease Congenital heart disease Coronary thrombosis Cystic fibrosis Deafness or hearing loss Dementia Drug abuse Dysphasia Fibrocystic disease of breast Gastroenteritis Glaucoma Headache disorder Hypercholesterolemia Hypertension Infertility Kidney disease Myocardial infarction Neoplasm Not obtainable due to adoption Osteoporosis Parkinson's disease Prostate cancer Psychosocial problem Respiratory disorder Seizure disorder Severe allergy Thyroid disease Tuberculosis Visual disorder Heart Disease, Hypertension SOCIAL HISTORY: -SMOKING -ETOH- -DRUGS--CHRONIC MARIJUANA USE PAST SURGICAL HISTORY: -09/20/20--LAPAROSCOPY FOR INTUSSCEPTION BY DR. BHATTI -08/24/20 --EGD/COLONOSCOPY--DX GASTRITIS/ESOPHAGITIS -01/16/21--EGD BY DR. BHATTI--DX GASTRITIS/ESOPHAGITIS/SMALL HIATAL HERNIA -CHOLECYSTECTOMY -BILATERAL TUBAL LIGATION -HYSTERECTOMY/BILATERAL SALPINGO-OOPHORECTOMY 2005 -BLADDER SLING/LATER REMOVED -CARDIAC CATH 2012--NORMAL Physical Exam Vital Signs Vital Signs - First Documented 03/05/23 03/05/23 16:00 18:45 Temp 36.6 Pulse 86 Resp 18 B/P (MAP) 186/99 (128) Pulse Ox 97 O2 Delivery Room Air Capillary Refill : Less Than 3 Seconds Height, Weight, BMI Height: 5'6.00" Weight: 203lbs. 6.4oz. 92.829433bo; 32.00 BMI Method:Stated General Appearance: No Apparent Distress, WD/WN Eyes: Bilateral Eye Normal Inspection, Bilateral Eye PERRL, Bilateral Eye EOMI HEENT: PERRL/EOMI, TMs Normal, Normal ENT Inspection, Pharynx Normal Neck: Full Range of Motion, Normal Inspection, Non Tender, Supple Respiratory: Chest Non Tender, Normal Breath Sounds, No Accessory Muscle Use, No Respiratory Distress, Other (Right-sided lower lateral rib tenderness. No crepitus or step-off. No flailing of of the chest. 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 as Tested Skin: Normal Color, Warm/Dry Progress/Results/Core Measures Suspected Sepsis SIRS Temperature: Pulse: 86 Respiratory Rate: 18 Blood Pressure 186 /99 Mean: 128 Results/Orders My Orders Orders - JOSEFINA BANDA PA Ribs, Right 2-3 Views (03/05/23 16:52) Ns Iv 1000 Ml (Ns Iv 1000 Ml) (03/05/23 16:52) Prochlorperazine Injection (Prochlorpera (03/05/23 17:00) Diphenhydramine Injection (Diphenhydram (03/05/23 17:00) Fentanyl Injection (Fentanyl Injection (03/05/23 16:52) Medications Given in ED Vital Signs/I&O 03/05/23 03/05/23 16:00 18:45 Temp 36.6 Pulse 86 80 Resp 18 20 B/P (MAP) 186/99 (128) 173/107 Pulse Ox 97 98 O2 Delivery Room Air 03/06/23 00:00 Intake Total 1000 ml Balance 1000 ml Capillary Refill : Less Than 3 Seconds Blood Pressure Mean: 128 Departure Communication (PCP) Patient with mechanical fall last night. She hit the right side of her ribs in the shower. No loss of consciousness or head injury. She has some bruising and swelling to the right lateral ribs. Mild pain with deep inspiration worse with movement. Obtained a rib x-ray which did not show any evidence of rib fracture or pneumothorax. No anterior chest wall pain. Likely more bruised rib. She does report a frontal headache with nausea, vomiting, photophobia. History of migraines. She states today's head pain feels very similar. Denies worst headache of her life. She was hypertensive. 186/99. She states she is currently on blood pressure medication which she cannot recall. She has no neurological deficits such as unilateral weakness, sensory changes, visual loss. Denies shortness of breath, cough or abdominal pain. She does report history of vomiting and history of cyclic vomiting syndrome. She received a migraine cocktail with near resolution of her symptoms. She states she is feeling much better at this time would like to be discharged. She does take Imitrex for her migraines which she states she has frequent migraines. Recommend follow-up with your PCP 2 to 3 days for reevaluation. If any worsening symptoms return back to ED. Impression Primary Impression: Rib contusion Disposition: HOME, SELF-CARE Condition: Stable Departure-Patient Inst. Decision time for Depature: 18:06 Referrals: LANDON NYE APRN (PCP/Family) Primary Care Physician Patient Instructions: Bruised Rib Add. Discharge Instructions: All discharge instructions reviewed with patient and/or family. Voiced understanding. JOSEFINA BANDA Mar 05, 2023 16:55
[2023-03-05] MEDS ORDERED: diphenhydrAMINE INJ 50 MG/ML VIAL IM ONE (17:00)
[2023-03-05] MEDS ORDERED: PROCHLORPERAZINE INJ 10 MG/2ML VIAL IV ONE (17:00)
--- NOTE | 2023-03-05 17:34 | Diagnostic Imaging Report ---
RIBS, RIGHT 2-3 VIEWS INDICATION: Right-sided rib pain. COMPARISON: [facility] chest of 06/25/2021. TECHNIQUE: Two views of the right ribs. FINDINGS: No acute or healing fracture within the right ribs. No pleural effusion or pneumothorax on the right side. Right lung remains clear. IMPRESSION: No right-sided rib fracture. Dictated by: Dictated on workstation # [id number]
[2023-03-05 18:45] VITALS: BP 173/107
== END 2023-03-05 18:45 | disposition home or self-care (01) ==
LOC: EDUNIT# 15:56 → ER 16:00
DX: S20.211A Contusion of right front wall of thorax, initial encounter (principal); G43.909 Migraine, unspecified, not intractable, without status migrainosus; I10 Essential (primary) hypertension; Z79.899 Other long term (current) drug therapy; Z28.311 Partially vaccinated for COVID-19; W18.2XXA Fall in (into) shower or empty bathtub, initial encounter; W22.09XA Striking against other stationary object, initial encounter; Y93.E1 Activity, personal bathing and showering; Y92.002 Bathroom of unspecified non-institutional (private) residence as the place of occurrence of the external cause
CPT/HCPCS: 71100

== ENCOUNTER 2023-03-23 13:03 | Emergency (ER) | payer SELFPAY ==
[~2023-03-23] VITALS: Ht 167 cm; Wt 94.3 kg
[2023-03-23] MEDS ORDERED: fentaNYL INJECTION 100 MCG/2 ML VIAL IVP STA (13:18)
[2023-03-23] MEDS ORDERED: NS IV 1000 ML 1,000 ML IV STA (13:18)
--- NOTE | 2023-03-23 13:22 | ED Headache ---
General Chief Complaint: Head/Cervical Problems Stated Complaint: MIGRAINE Source: patient Exam Limitations: no limitations (JOSEFINA BANDA) History of Present Illness Date Seen by Provider: Mar 23, 2023 Time Seen by Provider: 13:20 Initial Comments Patient is a 47-year-old female who presents to ED for a migraine. History of migraines. She states she gets similar type headaches quite often. Does not see a neurologist. Symptoms started last night frontal head pressure rated throughout. Pain is 10 out of 10. Denies worst headache of her life but describes it as her typical migraines. She reports vomiting today 5 plus episodes. She did take Excedrin Migraine today without much improvement. She reports photophobia and phonophobia. Denies of any cough, fever, chest pain, shortness of breath. She does have a history of hypertension currently on amlodipine. She states she has been seen in the past for similar type headaches. She denies any trauma. No focal neural deficits such as unilateral muscle weakness or sensory changes (JOSEFINA BANDA) Allergies and Home Medications Allergies Coded Allergies: morphine (Verified Allergy, Unknown, CAUSES "REBOUND HEADACHES", 12/13/20) PT HAS RECEIVED LORTAB & OXYCODONE IN THE PAST baclofen (Verified Adverse Reaction, Severe, 12/13/20) PATIENT UNAWARE OF REACTION BUT WAS HOSPITALIZED AFTER TAKING MEDICATION AND WAS TOLD IT WAS A REACTION DUE TO THE MEDICATION SHE TOOK. meloxicam (Verified Adverse Reaction, Severe, 12/13/20) PATIENT UNAWARE OF REACTION BUT WAS HOSPITALIZED AFTER TAKING MEDICATION AND WAS TOLD IT WAS A REACTION DUE TO THE MEDICATION SHE TOOK. NSAIDS (Non-Steroidal Anti-Inflamma (Verified Adverse Reaction, Mild, have IBS and avoid NSAIDS, 12/13/20) Patient Home Medication List Home Medication List Reviewed: Yes (JOSEFINA BANDA) Famotidine (Famotidine) 20 Mg Tablet, 20 MG PO BID, (Reported) Entered as Reported by: ZAIRA ARCHER on 05/05/21 1450 Metoclopramide HCl (Reglan) 10 Mg Tablet, 10 MG PO BID Prescribed by: FAMILIA ELISE on 05/26/21 1054 Metoclopramide HCl (Reglan) 10 Mg Tablet, 10 MG PO TID Prescribed by: VERONICA CAICEDO on 5/11/23 2218 Nitrofurantoin Monohyd/M-Cryst (Nitrofurantoin Wake-Mcr 100 mg) 100 Mg Capsule, 100 MG PO BID Prescribed by: Shira Juarez on 09/07/222032 Ondansetron (Ondansetron Odt) 8 Mg Tab.rapdis, 8 MG PO Q8H PRN for nausea Prescribed by: ARIELLA WARNER on 10/30/21 0834 Pantoprazole Sodium (Protonix) 40 Mg Tablet.dr, 40 MG PO DAILY Prescribed by: VERONICA CAICEDO on 10/11/222217 Potassium Chloride (Klor-Con M20) 20 Meq Tab.er.prt, 20 MEQ PO DAILY Prescribed by: KRYSTIN RAMOS on 05/08/21 111 Spironolactone (Spironolactone) 25 Mg Tablet, 50 MG PO BID Prescribed by: KRYSTIN RAMOS on 05/08/21 1113 Tramadol HCl (Tramadol HCl) 50 Mg Tablet, 50 MG PO Q6H PRN for abdominal pain Prescribed by: ARIELLA WARNER on 05/13/21 1304 Tramadol HCl (Tramadol HCl) 50 Mg Tablet, 50 MG PO Q6H PRN for PAIN Prescribed by: ARIELLA WARNER on 12/27/21 1120 Review of Systems Review of Systems Constitutional: No chills, No diaphoresis, No fever, No malaise, No weakness Eyes: Denies Blurred Vision, Denies Drainage, Denies Decreased Acuity Ears, Nose, Mouth, Throat: denies ear pain, denies ear discharge Respiratory: No cough, No dyspnea on exertion Cardiovascular: No chest pain Gastrointestinal: No abdominal pain, No diarrhea; nausea, vomiting Genitourinary: No decreased output, No discharge Musculoskeletal: No back pain, No joint pain Skin: No change in color, No change in hair/nails (JOSEFINA BANDA) Past Xwlyvsa-Egutcv-Fvulug Hx Patient Social History Tobacco Use?: No Substance use?: No Alcohol Use?: No Pt feels they are or have been: No (JOSEFINA BANDA) Immunizations Up To Date Tetanus Booster (TDap): Unknown PED Vaccines UTD: No First/Initial COVID19 Vaccinat: 1 SHOT Second COVID19 Vaccination Marv: 1 SHOT Third COVID19 Vaccination Date: 1 SHOT (JOSEFINA BANDA) Seasonal Allergies Seasonal Allergies: No (OJSEFINA BANDA) Past Medical History Surgery/Hospitalization HX: TONSILLECTOMY HYSTERECTOMY BILATERAL TUBAL LIGATION CHOLECYSTECTOMY LAPAROSCOPY 09/19/[address] BHATTI FOR INTUSSUCEPTION EGD'S--LAST ONE 01/16/[address] BHATTI--SHOWED GASTRITIS, SMALL HIATAL. 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 Sexually Transmitted Disease: Yes (HPV) HIV/AIDS: No Genitourinary: Yes Bladder Infection Gastrointestinal: Yes (History of cyclic vomiting and cannabis hyperemesis;CHRONIC N/V/ABD PAIN ) Gastroesophageal Reflux, Diverticulosis, Esophagitis, Hiatal Hernia, Gall Bladder Disease Musculoskeletal: Yes Chronic Back Pain Endocrine: No HEENT: Yes (POOR DENTITION) Loss of Vision: Denies Hearing Impairment: Denies Cancer: Yes Uterine Psychosocial: Yes (THC USE) Anxiety, Depression Integumentary: No Blood Disorders: No Adverse Reaction/Blood Tranf: No (JOSEFINA BANDA) Family Medical History Diabetes mellitus 19 FATHER FHx: brain tumor 19 MOTHER HPV infection G8 SISTER No Family History of: AIDS Abdominal aortic aneurysm Davie's disease Alcoholism Alzheimer's disease Aphasia Arthritis Asthma Cancer of mouth Cardiovascular disease Cataracts Colon cancer Completed stroke Congenital disease Congenital heart disease Coronary thrombosis Cystic fibrosis Deafness or hearing loss Dementia Drug abuse Dysphasia Fibrocystic disease of breast Gastroenteritis Glaucoma Headache disorder Hypercholesterolemia Hypertension Infertility Kidney disease Myocardial infarction Neoplasm Not obtainable due to adoption Osteoporosis Parkinson's disease Prostate cancer Psychosocial problem Respiratory disorder Seizure disorder Severe allergy Thyroid disease Tuberculosis Visual disorder Heart Disease, Hypertension SOCIAL HISTORY: -SMOKING -ETOH- -DRUGS--CHRONIC MARIJUANA USE PAST SURGICAL HISTORY: -09/20/20--LAPAROSCOPY FOR INTUSSCEPTION BY DR. BHATTI -08/24/20 --EGD/COLONOSCOPY--DX GASTRITIS/ESOPHAGITIS -01/16/21--EGD BY DR. BHATTI--DX GASTRITIS/ESOPHAGITIS/SMALL HIATAL HERNIA -CHOLECYSTECTOMY -BILATERAL TUBAL LIGATION -HYSTERECTOMY/BILATERAL SALPINGO-OOPHORECTOMY 2005 -BLADDER SLING/LATER REMOVED -CARDIAC CATH 2012--NORMAL (JOSEFINA BANDA) Physical Exam Vital Signs Vital Signs - First Documented 03/23/23 13:17 Temp 36.6 Pulse 115 Resp 16 B/P (MAP) 176/105 (128) Pulse Ox 97 (MARY VITAL MD) Vital Signs Capillary Refill : (JOSEFINA BANDA) Height, Weight, BMI Height: 5'6.00" Weight: 203lbs. 6.4oz. 92.765484yt; 32.00 BMI Method:Stated General Appearance: WD/WN, no apparent distress HEENT: PERRL/EOMI, normal ENT inspection, TMs normal, pharynx normal Neck: non-tender, full range of motion, supple Cardiovascular: regular rate, rhythm, no edema, no gallop, no JVD Respiratory: chest non-tender, lungs clear, normal breath sounds, no r espiratory distress, no accessory muscle use Gastrointestinal: normal bowel sounds, non tender, soft, no organomegaly Back: normal inspection, no CVA tenderness Extremities: normal range of motion, non-tender, normal inspection, no pedal edema Crainal Nerves: normal hearing, normal speech, PERRL Coordination/Gait: normal finger to nose, normal gait Motor/Sensory: no motor deficit, no sensory deficit, no pronator drift Skin: normal color, warm/dry (JOSEFINA BANDA) Progress/Results/Core Measures Results/Orders Lab Results Laboratory Tests Test 03/23/23 13:27 Range/Units Sodium Level 141 135-145 MMOL/L Potassium Level 3.4 L 3.6-5.0 MMOL/L Chloride Level 102 98-107 MMOL/L Carbon Dioxide Level 21 21-32 MMOL/L Anion Gap 18 H 5-14 MMOL/L Blood Urea Nitrogen 21 H 7-18 MG/DL Creatinine 1.06 0.60-1.30 MG/DL Estimat Glomerular Filtration Rate 66 BUN/Creatinine Ratio 20 Glucose Level 150 H 70-105 MG/DL Calcium Level 10.5 H 8.5-10.1 MG/DL Corrected Calcium 8.5-10.1 MG/DL Total Bilirubin 0.7 0.1-1.0 MG/DL Aspartate Amino Transf (AST/SGOT) 26 5-34 U/L Alanine Aminotransferase (ALT/SGPT) 21 0-55 U/L Alkaline Phosphatase 85 40-136 U/L Total Protein 8.7 H 6.4-8.2 GM/DL Albumin 4.8 H 3.2-4.5 GM/DL (MARY VITAL MD) Medications Given in ED Current Medications Medications Dose Ordered Sig/Judi Route Start Time Stop Time Status Last Admin Dose Admin Dexamethasone Sodium Phosphate 10 mg ONCE ONCE IV 03/23/23 13:30 03/23/23 13:31 DC 03/23/23 13:32 10 MG Diphenhydramine HCl 25 mg ONCE ONCE IVP 03/23/23 13:30 03/23/23 13:31 DC 03/23/23 13:33 25 MG Potassium Chloride 20 meq ONCE ONCE PO 03/23/23 15:00 03/23/23 15:01 DC 03/23/23 14:58 20 MEQ Prochlorperazine Edisylate 10 mg ONCE ONCE IV 03/23/23 13:30 03/23/23 13:31 DC 03/23/23 13:32 10 MG (MARY VITAL MD) Vital Signs/I&O 03/23/23 03/23/23 13:17 15:05 Temp 36.6 36.6 Pulse 115 102 Resp 16 16 B/P (MAP) 176/105 (128) 172/106 Pulse Ox 97 97 (MARY VITAL MD) Departure Communication (PCP) Reviewed previous ER visits, H&P, lab testing. Differential diagnosis migraine, viral syndrome, hypertensive emergency. Patient without any flulike symptoms. History of migraines. Presents toED for a migraine. Pain started yesterday evening. She reports vomiting today. Has been taking her Imitrex and Excedrin Migraine without much improvement. She denies worst headache of her life. Patient is hypertensive with a known history of hypertension currently on amlodipine. She has no focal neural deficits. Photophobia and phonophobia today. Today's head pain feels like her typical migraines. Patient received a migraine cocktail. Near resolution of her symptoms. She remained hypertensive at 191/113. She states she was not able to take her amlodipine. Did offer to give her a dose but she refused. She was wanting to go home. At this time continue with your management at home. If any worsening symptoms such as severe head pain, unilateral weakness or sensory changes projectile vomiting to return back to ED. Patient agrees with plan of action. Follow-up your PCP in 2 to 3 days for reevaluation (JOSEFINA BANDA) Impression Primary Impression: Migraine Disposition: HOME, SELF-CARE Condition: Stable Departure-Patient Inst. Decision time for Depature: 13:46 (JOSEFINA BANDA) Referrals: LANDON NYE APRN (PCP/Family) Primary Care Physician Patient Instructions: Migraines (DC) Add. Discharge Instructions: If any worsening symptoms return back to ED. Continue with your regimen at home All discharge instructions reviewed with patient and/or family. Voiced understanding. ATTENDING PHYSICIAN NOTE: I was physically present as attending physician in the emergency department during the care of this patient, but I was not directly involved in the decision making or delivery of care for this patient. (MARY VITAL MD) JOSEFINA BANDA Mar 23, 2023 13:22 MARY VITAL MD Mar 23, 2023 19:23
[2023-03-23] MEDS ORDERED: dexAMETHasone INJ 10 MG/ML 1 ML VIAL IV ONE (13:30)
[2023-03-23] MEDS ORDERED: PROCHLORPERAZINE INJ 10 MG/2ML VIAL IV ONE (13:30)
[2023-03-23] MEDS ORDERED: diphenhydrAMINE INJ 50 MG/ML VIAL IVP ONE (13:30)
[2023-03-23 14:45] LABS: ALBUMIN 4.8 GM/DL (3.2-4.5); CHLORIDE 102 MMOL/L (98-107); POTASSIUM 3.4 MMOL/L (3.6-5.0); SODIUM 141 MMOL/L (135-145)
[2023-03-23 14:46] LABS: CALCIUM 10.5 MG/DL (8.5-10.1)
[2023-03-23 14:47] LABS: GLUCOSE 150 MG/DL (70-105)
[2023-03-23 14:48] LABS: TOTAL PROTEIN 8.7 GM/DL (6.4-8.2)
[2023-03-23 14:49] LABS: BILIRUBIN,TOTAL 0.7 MG/DL (0.1-1.0); CARBON DIOXIDE 21 MMOL/L (21-32)
[2023-03-23 14:51] LABS: ALKALINE PHOSPHATASE 85 U/L (40-136); CREATININE SERUM 1.06 MG/DL (0.60-1.30); GFR ESTIMATED 66
[2023-03-23 14:52] LABS: BUN/CREATININE RATIO 20
[2023-03-23 14:54] LABS: ALANINE AMINOTRANSFERASE 21 U/L (0-55)
[2023-03-23] MEDS ORDERED: POTASSIUM CHLORIDE 20 MEQ TABLET PO ONE (15:00)
[2023-03-23 15:05] VITALS: BP 172/106
== END 2023-03-23 15:05 | disposition home or self-care (01) ==
LOC: EDUNIT# 13:03 → ER 13:06
DX: G43.909 Migraine, unspecified, not intractable, without status migrainosus (principal); I10 Essential (primary) hypertension; Z79.899 Other long term (current) drug therapy
CPT/HCPCS: 36415; 80053; 96361; 96374; 96375

== ENCOUNTER 2023-04-07 17:06 | Emergency (ER) | payer SELFPAY ==
[~2023-04-07] VITALS: Ht 167.7 cm; Wt 94.3 kg
[2023-04-07] MEDS ORDERED: ONDANSETRON INJECTION 4 MG/2 ML (SDV) IVP ONE ×2 (17:45→18:45)
[2023-04-07] MEDS ORDERED: LACTATED RINGERS 1,000 ML 1,000 ML IV ONE ×2 (17:45→18:45)
[2023-04-07 17:52] LABS: BASOPHILS % (AUTO) 0 % (0-10); EOSINOPHILS % (AUTO) 0 % (0-10); HEMATOCRIT 40 % (35-52); HEMOGLOBIN 12.4 g/dL (11.5-16.0); LYMPHOCYTES # (AUTO) 1.8 10^3/uL (1.0-4.0); LYMPHOCYTES % (AUTO) 13 % (12-44); MEAN CORPUSCULAR HEMOGLOBIN 26 pg (25-34); MEAN CORPUSCULAR HGB CONC 31 g/dL (32-36); MEAN CORPUSCULAR VOLUME 82 fL (80-99); MEAN PLATELET VOLUME 8.9 fL (9.0-12.2); MONOCYTES % (AUTO) 7 % (0-12); NEUTROPHILS # (AUTO) 11.2 10^3/uL (1.8-7.8); NEUTROPHILS % (AUTO) 79 % (42-75); PLATELET COUNT 463 10^3/uL (130-400); WHITE BLOOD COUNT 14.1 10^3/uL (4.3-11.0)
[2023-04-07 17:54] LABS: ALBUMIN 4.8 GM/DL (3.2-4.5); CHLORIDE 106 MMOL/L (98-107); POTASSIUM 3.6 MMOL/L (3.6-5.0); SODIUM 146 MMOL/L (135-145)
[2023-04-07 17:55] LABS: AMYLASE 18 U/L (25-125); CALCIUM 10.6 MG/DL (8.5-10.1)
[2023-04-07 17:56] LABS: GLUCOSE 126 MG/DL (70-105); TOTAL PROTEIN 8.7 GM/DL (6.4-8.2)
[2023-04-07 17:57] LABS: CARBON DIOXIDE 21 MMOL/L (21-32)
[2023-04-07 17:58] LABS: BILIRUBIN,TOTAL < 0.1 MG/DL (0.1-1.0)
[2023-04-07 18:00] LABS: ALKALINE PHOSPHATASE 102 U/L (40-136); CREATININE SERUM 0.95 MG/DL (0.60-1.30); GFR ESTIMATED 75
[2023-04-07 18:01] LABS: BUN/CREATININE RATIO 7
[2023-04-07 18:03] LABS: ALANINE AMINOTRANSFERASE 27 U/L (0-55); MAGNESIUM 2.1 MG/DL (1.6-2.4)
[2023-04-07 18:04] LABS: LIPASE 32 U/L (8-78)
--- NOTE | 2023-04-07 18:14 | ED GI ---
General Chief Complaint: Abdominal/GI Problems Stated Complaint: VOMITING Nursing Triage Note: PT AMB TO TRIAGE WITH COMPLAINT OF N/V, ABD PAIN THAT STARTED LAST NIGHT. Source of Information: Patient, Old Records History of Present Illness Date Seen by Provider: Apr 07, 2023 Time Seen by Provider: 17:45 Initial Comments PT ARRIVES VIA POV FROM HOME PT STATES SHE BEGAN GETTING SICK LAST NIGHT WITH: -NAUSEA/VOMITING/DIARRHEA AND GENERALIZED ABDOMINAL PAIN SHE HAS VOMITED UNKNOWN NUMBER OF TIMES NO FEVER LAST VOID 1 HOUR AGO, NO PROBLEMS URINATING NO KNOWN SICK CONTACTS OR SUSPICIOUS FOODS THIS IS CHRONIC PROBLEM FOR PT PT HAS HAD A MULTITUDE OF VISITS FOR THIS PROBLEM WELL MANY OTHER CHRONIC ISSUES SHE SMOKES MARIJUANA ON A REGULAR BASIS AND HAS BEEN DX WITH CANNABIS HYPEREMESIS. PCP; [facility] Allergies and Home Medications Allergies Coded Allergies: morphine (Verified Allergy, Unknown, CAUSES "REBOUND HEADACHES", 12/13/20) PT HAS RECEIVED LORTAB & OXYCODONE IN THE PAST baclofen (Verified Adverse Reaction, Severe, 12/13/20) PATIENT UNAWARE OF REACTION BUT WAS HOSPITALIZED AFTER TAKING MEDICATION AND WAS TOLD IT WAS A REACTION DUE TO THE MEDICATION SHE TOOK. meloxicam (Verified Adverse Reaction, Severe, 12/13/20) PATIENT UNAWARE OF REACTION BUT WAS HOSPITALIZED AFTER TAKING MEDICATION AND WAS TOLD IT WAS A REACTION DUE TO THE MEDICATION SHE TOOK. NSAIDS (Non-Steroidal Anti-Inflamma (Verified Adverse Reaction, Mild, have IBS and avoid NSAIDS, 12/13/20) Patient Home Medication List Home Medication List Reviewed: Yes Dicyclomine HCl (Dicyclomine HCl) 20 Mg Tablet, 20 MG PO Q6H Prescribed by: CHANTEL MAYORGA on 04/07/232000 Famotidine (Famotidine) 20 Mg Tablet, 20 MG PO BID, (Reported) Entered as Reported by: ZAIRA ARCHER on 05/05/21 1450 Metoclopramide HCl (Reglan) 10 Mg Tablet, 10 MG PO BID Prescribed by: FAMILIA ELISE on 05/26/21 1054 Metoclopramide HCl (Reglan) 10 Mg Tablet, 10 MG PO TID Prescribed by: VERONICA CAICEDO on 10/11/22 2218 Nitrofurantoin Monohyd/M-Cryst (Nitrofurantoin Addison-Mcr 100 mg) 100 Mg Capsule, 100 MG PO BID Prescribed by: Shira Juarez on 09/07/222032 Ondansetron (Ondansetron Odt) 8 Mg Tab.rapdis, 8 MG PO Q8H PRN for nausea Prescribed by: ARIELLA WARNER on 10/30/21 0834 Ondansetron (Ondansetron Odt) 8 Mg Tab.rapdis, 8 MG PO Q6H Prescribed by: CHANTEL MAYORGA on 04/07/232000 Pantoprazole Sodium (Protonix) 40 Mg Tablet.dr, 40 MG PO DAILY Prescribed by: VERONICA CAICEDO on 10/11/222217 Pantoprazole Sodium (Protonix) 40 Mg Tablet.dr, 40 MG PO DAILY Prescribed by: CHANTEL MAYORGA on 04/07/232000 Potassium Chloride (Klor-Con M20) 20 Meq Tab.er.prt, 20 MEQ PO DAILY Prescribed by: KRYSTIN RAMOS on 05/08/21 111 Promethazine HCl (Promethazine Suppository) 25 Mg Supp.rect, 25 MG RC Q6 Prescribed by: CHANTEL MAYORGA on 04/07/232000 Spironolactone (Spironolactone) 25 Mg Tablet, 50 MG PO BID Prescribed by: KRYSTIN RAMOS on 05/08/21 1113 Tramadol HCl (Tramadol HCl) 50 Mg Tablet, 50 MG PO Q6H PRN for abdominal pain Prescribed by: ARIELLA WARNER on 05/13/21 1304 Tramadol HCl (Tramadol HCl) 50 Mg Tablet, 50 MG PO Q6H PRN for PAIN Prescribed by: ARIELLA WARNER on 12/27/21 1120 Review of Systems Review of Systems Constitutional: no symptoms reported EENTM: No Symptoms Reported Respiratory: No Symptoms Reported Cardiovascular: No Symptoms Reported Gastrointestinal: See HPI, Abdominal Pain, Diarrhea, Nausea, Vomiting Genitourinary: No Symptoms Reported Musculoskeletal: no symptoms reported Skin: no symptoms reported Psychiatric/Neurological: No Symptoms Reported Endocrine: No Symptoms Reported Hematologic/Lymphatic: No Symptoms Reported Past Sxspphw-Aulruw-Hgkhyw Hx Patient Social History Tobacco Use?: No Use of E-Cig and/or Vaping dev: No Substance use?: Yes Substance type: Marijuana Substance frequency: Daily Alcohol Use?: No Pt feels they are or have been: No Immunizations Up To Date Tetanus Booster (TDap): Unknown PED Vaccines UTD: No First/Initial COVID19 Vaccinat: 1 SHOT Second COVID19 Vaccination Marv: 1 SHOT Third COVID19 Vaccination Date: 1 SHOT Seasonal Allergies Seasonal Allergies: No Past Medical History Surgery/Hospitalization HX: TONSILLECTOMY HYSTERECTOMY BILATERAL TUBAL LIGATION CHOLECYSTECTOMY LAPAROSCOPY 09/19/[address] BHATTI FOR INTUSSUCEPTION EGD'S--LAST ONE 01/16/[address] BHATTI--SHOWED GASTRITIS, SMALL HIATAL. 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 Sexually Transmitted Disease: Yes (HPV) HIV/AIDS: No Genitourinary: Yes Bladder Infection Gastrointestinal: Yes (History of cyclic vomiting and cannabis hyperemesis;CHRONIC N/V/ABD PAIN ) Gastroesophageal Reflux, Diverticulosis, Esophagitis, Hiatal Hernia, Gall Bladder Disease Musculoskeletal: Yes Chronic Back Pain Endocrine: No HEENT: Yes (POOR DENTITION) Loss of Vision: Denies Hearing Impairment: Denies Cancer: Yes Uterine Psychosocial: Yes (THC USE) Anxiety, Depression Integumentary: No Blood Disorders: No Adverse Reaction/Blood Tranf: No Family Medical History Diabetes mellitus 19 FATHER FHx: brain tumor 19 MOTHER HPV infection G8 SISTER No Family History of: AIDS Abdominal aortic aneurysm Moselle's disease Alcoholism Alzheimer's disease Aphasia Arthritis Asthma Cancer of mouth Cardiovascular disease Cataracts Colon cancer Completed stroke Congenital disease Congenital heart disease Coronary thrombosis Cystic fibrosis Deafness or hearing loss Dementia Drug abuse Dysphasia Fibrocystic disease of breast Gastroenteritis Glaucoma Headache disorder Hypercholesterolemia Hypertension Infertility Kidney disease Myocardial infarction Neoplasm Not obtainable due to adoption Osteoporosis Parkinson's disease Prostate cancer Psychosocial problem Respiratory disorder Seizure disorder Severe allergy Thyroid disease Tuberculosis Visual disorder Heart Disease, Hypertension SOCIAL HISTORY: -SMOKING DENIES USE -ETOH- DENIES USE -DRUGS--CHRONIC MARIJUANA USE PAST SURGICAL HISTORY: -09/20/20--LAPAROSCOPY FOR INTUSSCEPTION BY DR. BHATTI -08/24/20 --EGD/COLONOSCOPY--DX GASTRITIS/ESOPHAGITIS -01/16/21--EGD BY DR. BHATTI--DX GASTRITIS/ESOPHAGITIS/SMALL HIATAL HERNIA -CHOLECYSTECTOMY -BILATERAL TUBAL LIGATION -HYSTERECTOMY/BILATERAL SALPINGO-OOPHORECTOMY 2005 -BLADDER SLING/LATER REMOVED -CARDIAC CATH 2012--NORMAL Physical Exam Vital Signs Vital Signs - First Documented 04/07/23 17:20 Temp 36.6 Pulse 96 Resp 17 B/P (MAP) 182/112 (135) Pulse Ox 98 O2 Delivery Room Air Capillary Refill : Less Than 3 Seconds Height/Weight/BMI Height: 5'6.00" Weight: 203lbs. 6.4oz. [id number]; 33.00 BMI Method:Stated General Appearance: WD/WN, no apparent distress, obese, other (UNKEMPT; HAIR IS DYED HOT PINK; SHE IS RETCHING LOUDLY ON ARRIVAL WITH SMALL AMOUNT OF CLEAR EMESIS; ROCKING BACK AND FORTH, SITTING -STYLE) HEENT: PERRL/EOMI, other (NO UPPER TEETH AND LOWER TEETH WITH POOR DENTITION, MOST TEETH MISSING AND REMAINING TEETH WITH EXTENSIVE DECAY; ORAL MUCOSA MOIST) Neck: normal inspection Respiratory: normal breath sounds, no respiratory distress, no accessory muscle use Cardiovascular: regular rate, rhythm, no murmur Gastrointestinal: normal bowel sounds, soft; No distended; tenderness (DIFFUSE TENDERNESS) Extremities: normal inspection Back: no CVA tenderness Neurologic/Psychiatric: no motor/sensory deficits, alert, oriented x 3 Skin: normal color, warm/dry Progress/Results/Core Measures Results/Orders Lab Results Laboratory Tests Test 04/07/23 17:40 04/07/23 17:56 04/07/23 18:29 Range/Units White Blood Count 14.1 H 4.3-11.0 10^3/uL Red Blood Count 4.83 3.80-5.11 10^6/uL Hemoglobin 12.4 11.5-16.0 g/dL Hematocrit 40 35-52 % Mean Corpuscular Volume 82 80-99 fL Mean Corpuscular Hemoglobin 26 25-34 pg Mean Corpuscular Hemoglobin Concent 31 L 32-36 g/dL Red Cell Distribution Width 16.9 H 10.0-14.5 % Platelet Count 463 H 130-400 10^3/uL Mean Platelet Volume 8.9 L 9.0-12.2 fL Immature Granulocyte % (Auto) 1 % Neutrophils (%) (Auto) 79 H 42-75 % Lymphocytes (%) (Auto) 13 12-44 % Monocytes (%) (Auto) 7 0-12 % Eosinophils (%) (Auto) 0 0-10 % Basophils (%) (Auto) 0 0-10 % Neutrophils # (Auto) 11.2 H 1.8-7.8 10^3/uL Lymphocytes # (Auto) 1.8 1.0-4.0 10^3/uL Monocytes # (Auto) 1.0 0.0-1.0 10^3/uL Eosinophils # (Auto) 0.0 0.0-0.3 10^3/uL Basophils # (Auto) 0.0 0.0-0.1 10^3/uL Immature Granulocyte # (Auto) 0.1 0.0-0.1 10^3/uL Neutrophils % (Manual) 85 % Lymphocytes % (Manual) 11 % Monocytes % (Manual) 4 % Blood Morphology Comment NORMAL Sodium Level 146 H 135-145 MMOL/L Potassium Level 3.6 3.6-5.0 MMOL/L Chloride Level 106 98-107 MMOL/L Carbon Dioxide Level 21 21-32 MMOL/L Anion Gap 19 H 5-14 MMOL/L Blood Urea Nitrogen 7 7-18 MG/DL Creatinine 0.95 0.60-1.30 MG/DL Estimat Glomerular Filtration Rate 75 BUN/Creatinine Ratio 7 Glucose Level 126 H 70-105 MG/DL Calcium Level 10.6 H 8.5-10.1 MG/DL Corrected Calcium 8.5-10.1 MG/DL Magnesium Level 2.1 1.6-2.4 MG/DL Total Bilirubin < 0.1 L 0.1-1.0 MG/DL Aspartate Amino Transf (AST/SGOT) 24 5-34 U/L Alanine Aminotransferase (ALT/SGPT) 27 0-55 U/L Alkaline Phosphatase 102 40-136 U/L Total Protein 8.7 H 6.4-8.2 GM/DL Albumin 4.8 H 3.2-4.5 GM/DL Amylase Level 18 L 25-125 U/L Lipase 32 8-78 U/L Serum Test, Qualitative NEGATIVE NEGATIVE Influenza Type A (RT-PCR) Not Detected Not Detecte Influenza Type B (RT-PCR) Not Detected Not Detecte SARS-CoV-2 RNA (RT-PCR) Not Detected Not Detecte Urine Color YELLOW Urine Clarity CLEAR Urine pH >=9.0 5-9 Urine Specific [place] 1.020 1.016-1.022 Urine Protein 2+ H NEGATIVE Urine Glucose (UA) NEGATIVE NEGATIVE Urine Ketones 2+ H NEGATIVE Urine Nitrite NEGATIVE NEGATIVE Urine Bilirubin 1+ H NEGATIVE Urine Urobilinogen 0.2 < = 1.0 MG/DL Urine Leukocyte Esterase NEGATIVE NEGATIVE Urine RBC (Auto) NEGATIVE NEGATIVE Urine RBC NONE /HPF Urine WBC RARE /HPF Urine Squamous Epithelial Cells 5-10 /HPF Urine Crystals NONE /LPF Urine Bacteria TRACE /HPF Urine Casts PRESENT /LPF Urine Hyaline Casts RARE /LPF Urine Mucus SMALL H /LPF Urine Culture Indicated NO Urine Opiates Screen NEGATIVE NEGATIVE Urine Oxycodone Screen NEGATIVE NEGATIVE Urine Methadone Screen NEGATIVE NEGATIVE Urine Barbiturates Screen NEGATIVE NEGATIVE Ur Tricyclic Antidepressants Screen NEGATIVE NEGATIVE Urine Phencyclidine Screen NEGATIVE NEGATIVE Urine Amphetamines Screen NEGATIVE NEGATIVE Urine Methamphetamines Screen NEGATIVE NEGATIVE Urine Benzodiazepines Screen NEGATIVE NEGATIVE Urine Cocaine Screen NEGATIVE NEGATIVE Urine Cannabinoids Screen POSITIVE H NEGATIVE My Orders Orders - CHANTEL MAYORGA DO Ed Iv/Invasive Line Start (04/07/23 17:45) Monitor-Rhythm Ecg Trace Only (04/07/23 17:45) Amylase (04/07/23 17:45) Cbc And Automated Diff (04/07/23 17:45) Comprehensive Metabolic Panel (04/07/23 17:45) Drug Screen Stat (Urine) (04/07/23 17:45) Hcg,Qualitative Serum (04/07/23 17:45) Lipase (04/07/23 17:45) Magnesium (04/07/23 17:45) Ua Culture If Indicated (04/07/23 17:45) Ed Iv/Invasive Line Start (04/07/23 17:45) Lactated Ringers 1,000 Ml (Lactated Ring (04/07/23 17:45) Ondansetron Injection (Ondansetron Inj (04/07/23 17:45) Covid 19 Inhouse Test (04/07/23 17:45) Influenza A And B By Pcr (04/07/23 17:45) Manual Differential (04/07/23 17:40) Ct Abdomen/Pelvis W (04/07/23 18:38) Ed Iv/Invasive Line Start (04/07/23 18:40) Lactated Ringers 1,000 Ml (Lactated Ring (04/07/23 18:45) Ondansetron Injection (Ondansetron Inj (04/07/23 18:45) Pantoprazole Injection (Pantoprazole Inj (04/07/23 18:45) Iohexol Injection (Omnipaque 350 Mg/Ml 1 (04/07/23 18:45) Received Contrast (Hold Metformin- Contr (04/07/23 18:45) Ns (Ivpb) 100 Ml (Sodium Chloride 0.9% 1 (04/07/23 18:45) Promethazine Injection (Promethazine I (04/07/23 20:00) Diphenhydramine Injection (Diphenhydram (04/07/23 20:00) Rx-Dicyclomine Capsule (Rx-Bentyl Capsul (04/07/23 20:02) Rx-Promethazine Hcl (Rx-Phenergan Supp) (04/07/23 20:02) Rx-Ondansetron Po (Rx-Zofran Po) (04/07/23 20:02) Medications Given in ED Current Medications Medications Dose Ordered Sig/Judi Route Start Time Stop Time Status Last Admin Dose Admin Diphenhydramine HCl 50 mg ONCE ONCE IVP 04/07/23 20:00 04/07/23 20:01 DC 04/07/23 20:01 50 MG Iohexol 100 ml ONCE ONCE IV 04/07/23 18:45 04/07/23 18:46 DC 04/07/23 19:26 80 ML Lactated Ringer's 1,000 ml @ 0 mls/hr Q0M ONCE IV 04/07/23 17:45 04/07/23 17:47 DC 04/07/23 17:56 0 MLS/HR Lactated Ringer's 1,000 ml @ 0 mls/hr Q0M ONCE IV 04/07/23 18:45 04/07/23 18:46 DC 04/07/23 18:48 0 MLS/HR Ondansetron HCl 4 mg ONCE ONCE IVP 04/07/23 17:45 04/07/23 17:47 DC 04/07/23 17:56 4 MG Ondansetron HCl 4 mg ONCE ONCE IVP 04/07/23 18:45 04/07/23 18:46 DC 04/07/23 18:50 4 MG Pantoprazole 40 mg ONCE ONCE IV 04/07/23 18:45 04/07/23 18:46 DC 04/07/23 18:47 40 MG Promethazine HCl 25 mg ONCE ONCE IVP 04/07/23 20:00 04/07/23 20:01 DC 04/07/23 20:01 25 MG Sodium Chloride 100 ml ONCE ONCE IV 04/07/23 18:45 04/07/23 18:46 DC 04/07/23 19:27 80 ML Vital Signs/I&O 04/07/23 04/07/23 17:20 20:25 Temp 36.6 Pulse 96 Resp 17 18 B/P (MAP) 182/112 (135) 157/74 Pulse Ox 98 98 O2 Delivery Room Air Room Air 04/08/23 00:00 Intake Total 1000 ml Balance 1000 ml Blood Pressure Mean: 135 Progress Progress Note : Progress Note VITALS ON ARRIVAL: TEMP 36.6, HR 96, RR 17, BP 182/112, O2 SAT 98% ON ROOM AIR GIVEN: -IV FLUIDS -ZOFRAN -PHENERGAN + BENADRYL -PROTONIX LABS: -CBC WITH WBC 14.1, OTHERWISE NORMAL -CMP UNREMARKABLE -MG NORMAL -AMYLASE/LIPASE NORMAL -UA IWTH 2+ KETONES -UDS + MARIJUANA -COVID/FLU NEGATIVE CT ABDOMEN/PELVIS IS UNREMARKABLE NO VOMITING FOR REMAINDER OF ER STAY BP DOWN TO 157/74 AT DISMISSAL DISCUSSED TEST RESULTS, ANTICIPATED COURSE, SYMPTOMATIC TREATMENT, STOPPING MARIJUANA USE, MEDICATIONS, NEED FOR FOLLOW UP AND RETURN PRECAUTIONS REVIEWED PRIOR RECORDS, INCLUDING ER VISITS, ADMITS/H&P'S/CONSULTS/DISCHARGE SUMMARIES, TESTS/PROCEDURESL Diagnostic Imaging Comments CT ABDOMEN/PELVIS--PER RADIOLOGIST REPORT AT 1948 FINDINGS: Lung bases: The lung bases are clear. Solid organs: The liver is normal without focal lesion. The gallbladder is surgically absent. There is no biliary ductal dilation. Pancreas is normal. Spleen is normal. Adrenal glands are normal. The kidneys are normal without hydronephrosis. Bowel: The stomach and small bowel are normal without obstruction. Mild wall thickening is seen throughout the colon. The appendix is normal. Peritoneum: There is no intraperitoneal free fluid or free air. No suspicious lymphadenopathy. Vasculature: Normal without aneurysm. Musculoskeletal: No suspicious osseous lesion or compression fracture. Pelvis: The uterus is surgically absent. No adnexal mass. The urinary bladder is normal. IMPRESSION: 1. Mild wall thickening is seen throughout the colon which could be seen with an infectious or inflammatory colitis in the appropriate clinical setting. 2. No other acute abnormality in the abdomen or pelvis. Reviewed: Reviewed by Me Departure Impression Primary Impression: Cannabinoid hyperemesis syndrome Additional Impressions: CHRONIC NAUSEA AND VOMITING Chronic abdominal pain Marijuana use Disposition: HOME, SELF-CARE Condition: Improved Departure-Patient Inst. Decision time for Depature: 19:59 Referrals: LANDON NYE APRN (PCP/Family) Primary Care Physician Patient Instructions: Cannabis hyperemesis syndrome Add. Discharge Instructions: NO MARIJUANA OR ANY OTHER DRUGS CLEAR LIQUIDS, SIPS AT A TIME--WATER, BROTH, JELLO, GATORADE WHEN YOUR NAUSEA AND PAIN ARE BETTER, ADD BRATS DIET TO CLEAR LIQUIDS--BANANAS, RICE, APPLESAUCE, TOAST, SALTINES FOLLOW UP WITH YOUR DR IN 2-3 DAYS IF NO BETTER All discharge instructions reviewed with patient and/or family. Voiced understanding. Scripts Dicyclomine HCl (Dicyclomine HCl) 20 Mg Tablet 20 MG PO Q6H for Abdominal Pain, #20 TAB Prov: CHANTEL MAYORGA DO 04/07/23 Ondansetron (Ondansetron Odt) 8 Mg Tab.rapdis 8 MG PO Q6H, #10 TAB Prov: CHANTEL MAYORGA DO 04/07/23 Pantoprazole Sodium (Protonix) 40 Mg Tablet.dr 40 MG PO DAILY, #15 TAB Prov: CHANTEL MAYORGA DO 04/07/23 Promethazine HCl (Promethazine Suppository) 25 Mg Supp.rect 25 MG RC Q6 for Nausea/Vomiting, #10 SUPP.RECT Prov: CHANTEL MAYORGA DO 04/07/23 CHANTEL MAYORGA DO Apr 07, 2023 18:14
[2023-04-07] MEDS ORDERED: IOHEXOL 350 MG/ML 100 ML (OMNIPAQUE 350) VIAL IV ONE (18:45)
[2023-04-07] MEDS ORDERED: NS 100 ML (IVPB) BAG IV ONE (18:45)
[2023-04-07] MEDS ORDERED: PANTOPRAZOLE INJECTION 40 MG VIAL IV ONE (18:45)
[2023-04-07] MEDS ORDERED: HOLD METFORMIN - RECEIVED CONTRAST 20 ML VIAL IV SCH (18:45)
[2023-04-07 18:53] LABS: LYMPHOCYTES % (MANUAL) 11 %; MONOCYTES % (MANUAL) 4 %; NEUTROPHILS % (MANUAL) 85 %
[2023-04-07 18:54] LABS: RBC MORPH NORMAL
[2023-04-07 18:56] LABS: AMPHETAMINE SCREEN, URINE NEGATIVE (NEGATIVE); BARBITURATE SCREEN URINE NEGATIVE (NEGATIVE); CANNABINOID SCREEN, URINE POSITIVE (NEGATIVE); COCAINE SCREEN URINE NEGATIVE (NEGATIVE); METHADONE STAT NEGATIVE (NEGATIVE); OPIATE SCREEN URINE NEGATIVE (NEGATIVE); OXYCODONE STAT NEGATIVE (NEGATIVE); TRICYCLIC ANTIDEPRESSANTS SCRE NEGATIVE (NEGATIVE)
[2023-04-07 19:00] LABS: CLARITY,URINE CLEAR; COLOR,URINE YELLOW
[2023-04-07 19:01] LABS: BACTERIA,URINE TRACE /HPF; BILIRUBIN,URINE 1+ (NEGATIVE); GLUCOSE, URINE (UA) NEGATIVE (NEGATIVE); HYALINE CASTS, URINE RARE /LPF; KETONES,URINE 2+ (NEGATIVE); LEUKOCYTE ESTERASE ,URINE NEGATIVE (NEGATIVE); NITRITE,URINE NEGATIVE (NEGATIVE); PH,URINE >=9.0 (5-9); PROTEIN,URINE 2+ (NEGATIVE); WBC,URINE RARE /HPF
--- NOTE | 2023-04-07 19:36 | Diagnostic Imaging Report ---
EXAMINATION: CT abdomen and pelvis with intravenous contrast. TECHNIQUE: Multiple contiguous axial images were obtained through the abdomen and pelvis after the uneventful administration of intravenous contrast. All CT scans use one or more of the following dose optimizing techniques: automated exposure control, MA and/or KvP adjustment based on patient size and exam type or iterative reconstruction. HISTORY: Abd pain, N/V/D. COMPARISON: None available. FINDINGS: Lung bases: The lung bases are clear. Solid organs: The liver is normal without focal lesion. The gallbladder is surgically absent. There is no biliary ductal dilation. Pancreas is normal. Spleen is normal. Adrenal glands are normal. The kidneys are normal without hydronephrosis. Bowel: The stomach and small bowel are normal without obstruction. Mild wall thickening is seen throughout the colon. The appendix is normal. Peritoneum: There is no intraperitoneal free fluid or free air. No suspicious lymphadenopathy. Vasculature: Normal without aneurysm. Musculoskeletal: No suspicious osseous lesion or compression fracture. Pelvis: The uterus is surgically absent. No adnexal mass. The urinary bladder is normal. IMPRESSION: 1. Mild wall thickening is seen throughout the colon which could be seen with an infectious or inflammatory colitis in the appropriate clinical setting. 2. No other acute abnormality in the abdomen or pelvis. Dictated by: Dictated on workstation # [id number]
[2023-04-07] MEDS ORDERED: PROMETHAZINE INJ 25 MG/ML VIAL IVP ONE (20:00)
[2023-04-07] MEDS ORDERED: diphenhydrAMINE INJ 50 MG/ML VIAL IVP ONE (20:00)
[2023-04-07] MEDS ORDERED: DICY20TA PO (20:01)
[2023-04-07] MEDS ORDERED: ONDA8TAB13 PO (20:01)
[2023-04-07] MEDS ORDERED: PROM25SU44 RC (20:01)
[2023-04-07] MEDS ORDERED: PANT40TA2 PO (20:01)
[2023-04-07] MEDS ORDERED: RX-ONDANSETRON 4 MG ODT (ZOFRAN) PPK #4 PO STA (20:02)
[2023-04-07] MEDS ORDERED: RX-DICYCLOMINE 10 MG (BENTYL) CAP PPK#4 PO STA (20:02)
[2023-04-07] MEDS ORDERED: RX-PHENERGAN 25 MG SUPP PPK#3 PR STA (20:02)
[2023-04-07 20:25] VITALS: BP 157/74
== END 2023-04-07 20:26 | disposition home or self-care (01) ==
LOC: EDUNIT# 17:06 → ER 17:08
DX: F12.90 Cannabis use, unspecified, uncomplicated (principal); R11.2 Nausea with vomiting, unspecified; G89.29 Other chronic pain; R10.84 Generalized abdominal pain
CPT/HCPCS: 36415; 74177; 80053; 80306; 81000; 82150; 83690; 83735; 84703; 85007; 85027; 87636; 93041; 96361; 96374; 96375; 96376